=== PATIENT | male | born 1955 | race Caucasian/White ===

== ENCOUNTER 2022-01-27 00:52 | Emergency (ER) | payer OTHER, SELFPAY ==
[2022-01-27 01:00] VITALS: PULSE 80; RESP 18; BMI 13.2
[2022-01-27] MEDS: 0.9 % SODIUM CHLORIDE 1000 ml 1,000 ML IV ×2 (01:45→03:00)
[2022-01-27] MEDS: ONDANSETRON 2 MG/ML inj 4 MG IVP (01:45)
[2022-01-27 02:04] LABS: Basophils Absolute Auto 0.03 K/uL (0.00-0.30); Basophils Percent Auto 0.3 % (0.0-3.0); Eosinophils Absolute Auto 0.14 K/uL (0.00-0.50); Eosinophils Percent Auto 1.3 % (0.0-7.0); Hematocrit 43.2 % (37.0-53.0); Hemoglobin* 14.3 gm/dL (13.5-17.5); Immature Granulocytes Abs Auto 0.01 K/uL (0.00-0.30); Lymphocytes Percent Auto 9.6 % (20-44); Mean Corpuscular HGB Conc 33 gm/dL (32-36); Mean Corpuscular Hemoglobin 30 pg (26-34); Mean Corpuscular Volume 90 fL (80-100); Monocytes Percent Auto 8.2 % (0.0-11.0); Neutrophils Percent Auto 80.5 % (42.0-72.0); Platelet Count* 214 K/uL (140-440); RDW Coefficient of Variation % 15.1 % (11.5-15.5); Red Blood Count 4.79 m/uL (4.30-5.90); White Blood Count* 10.59 K/uL (4.50-11.00)
[2022-01-27 02:08] LABS: Slide Review Reflex No
[2022-01-27 02:17] LABS: Albumin* 4.3 g/dL (3.3-5.0); Chloride* 104 mmol/L (96-114); Potassium* 3.8 mmol/L (3.6-5.1); Sodium* 138 mmol/L (135-149)
[2022-01-27 02:19] LABS: Creatinine* 1.3 mg/dL (0.5-1.5); Estimated Glomerular Filt Rate 61 ml/min
[2022-01-27 02:20] LABS: Alanine Aminotransferase* 29 U/L (4-50); Alkaline Phosphatase* 91 U/L (40-150); Aspartate Amino Transferase* 30 U/L (12-35); Bilirubin Direct* 0.2 mg/dL (0.0-0.5); Bilirubin Total* 0.4 mg/dL (0.1-1.5); Blood Urea Nitrogen* 26 mg/dL (7-30); Calcium* 8.8 mg/dL (8.4-10.6); Carbon Dioxide* 24 mmol/L (20-32); Glucose* 150 mg/dL (60-115); Total Protein* 7.8 g/dL (6.0-8.3)
[2022-01-27 02:23] LABS: C Reactive Protein* 2.5 mg/dL (0.5-1.0)
[2022-01-27 02:40] LABS: Lactate* 2.6 mmol/L (0.5-1.9)
--- NOTE | 2022-01-27 02:47 | ED_ITS ---
HPI - General Adult General Date Seen: 01/27/22 Chief complaint: Diarrhea Stated complaint: Diarrhea Time Seen by Provider: 01/27/22 01:21 Source: patient History of Present Illness HPI narrative: Patient is a 66-year-old male who presents with vomiting and diarrhea which started about 6 hours ago. He says that he just can not keep himself off the toilet. He has noted nonbloody, watery diarrhea multiple times, as well as multiple episodes of vomiting. He says he can not keep anything down. He has diffuse, crampy, mild abdominal pain, he says his abdomen feels ?tight?. He does not have any severe or localized abdominal pain. He has not had any fever. He has not had any recent travel or antibiotics. He has not been around anybody who has been sick. He had an episode of feeling lightheaded, like he might pass out although he did not pass out. He decided he better come in and get checked out. He has not had any chest pain or difficulty breathing, no urinary symptoms, no rashes. He has not taken any medications at home. Related Data Allergies Allergy/AdvReac Type Severity Reaction Status Date / Time No Known Drug Allergies Allergy Verified 01/27/22 01:07 Review of Systems Status of ROS: Reports: 10 or more systems reviewed and unremarkable except as noted in History and below [facility] Social History Smoking Status: Unknown if ever smoked Do you use any of these nicotine containing products: None Second hand tobacco smoke exposure: No How often do you have a drink containing alcohol: monthly or less AUDIT-C Alcohol total score: 1 Non-prescribed substance use: denies use Exam Narrative: Exam Narrative: Vital signs as noted above. In general, an alert, nontoxic male. Head: Normocephalic, atraumatic. Eyes: Pupils are equal reactive. Extraocular movements are full. Conjunctivae are normal. ENT: Mucous membranes are somewhat dry. Throat is normal. Neck: Supple without lymphadenopathy. Heart: Regular rate and rhythm. No murmur or rub. Lungs: Clear bilaterally. No increased work of breathing, crackles or wheezes. Abdomen: Soft and nontender. No organomegaly. Extremities: Well perfused. No edema. No calf tenderness. Pulses intact. Neurologic: Patient is alert and oriented to person and place. Speech is fluent. Face is symmetric. Moves all extremities equally. Affect: Normal. Skin: Warm and dry. Well perfused. Const: Vital Signs, click to edit/add: Vital Signs - 24 hr 01/27/22 01:00 01/27/22 04:52 Pulse Rate [Pulse Oximeter] 80 80 Respiratory Rate 18 16 Blood Pressure [Ri ght Upper Arm] 142/82 H Pulse Oximetry 98 Oxygen Delivery Me thod Room Air Room Air Course Course Hospital Course: We will go ahead and established an IV, give some fluids and Zofran, check some labs. Overall, symptoms are most suggestive of gastroenteritis with rather abrupt onset of both vomiting and diarrhea, diffuse abdominal pain. Certainly a food-borne illness is possible, I think other etiologies such as bowel obstruction, appendicitis, diverticulitis, cholecystitis, pancreatitis, mesenteric ischemia, etcetera are less likely, but will assess labs and then determine whether further imaging or evaluation or needed. Overall, labs are reassuring. White blood cell count is 10.6. Hemoglobin is 14.3. He does have a left shift at 80.5%. Electrolytes are all within normal limits. BUN is 26, creatinine is 1.3. Lactate was mildly elevated at 2.6. Creatinine mildly elevated at 2.5 P UA was negative, no red cells or white cells, no ketones. He had a total of 2 L of fluid. He is feeling improved, tolerating oral liquids. Retrospectively, he feels he knows what happened. He says that he had gone to the store, felt like having some seafood so he bought oysters. He left them in the hot car for about an hour, and then put them in the freezer to call them back down. He thinks this probably led to his GI symptoms. At present, given his nonspecific and benign abdominal exam, relatively reassuring labs, and symptoms which are overall suggesting an enteritis, I think it makes sense to see how he does over the course of today and he is comfortable with that. Would suggest clear liquids, advance diet as able. Discussed that if he feels that he is getting worse rather than better, has severe or focal abdominal pain, fevers, bloody stools, other worsening, he should come back for further evaluation. Vital Signs Vital signs: Initial Vital Signs Temperature Source Temporal Artery Scan 01/27/22 01:00 Pulse Rate 80 01/27/22 01:00 Respiratory Rate 18 01/27/22 01:00 Blood Pressure Position Sitting 01/27/22 01:00 Oxygen Delivery Method 01/27/22 01:00 Vital Signs Pulse Rate 80 01/27/22 01:00 Respiratory Rate 18 01/27/22 01:00 Oxygen Delivery Method 01/27/22 01:00 Pulse Rate 80 01/27/22 04:52 Respiratory Rate 16 01/27/22 04:52 Blood Pressure 142/82 H 01/27/22 04:52 Pulse Oximetry 98 01/27/22 04:52 Oxygen Delivery Method 01/27/22 04:52 Medical Decision Making Lab Data Labs: Lab Results 01/27/22 01/27/22 01/27/22 Range/Units 01:45 01:45 01:45 WBC 10.59 (4.50-11.00) K/uL RBC 4.79 (4.30-5.90) m/uL Hgb 14.3 (13.5-17.5) gm/dL Hct 43.2 (37.0-53.0) % MCV 90 (80-100) fL MCH 30 (26-34) pg MCHC 33 (32-36) gm/dL RDW Coeff of Harry 15.1 (11.5-15.5) % Plt Count 214 (140-440) K/uL Neut % (Auto) 80.5 H (42.0-72.0) % Lymph % (Auto) 9.6 L (20-44) % Tyrrell % (Auto) 8.2 (0.0-11.0) % Eos % (Auto) 1.3 (0.0-7.0) % Baso % (Auto) 0.3 (0.0-3.0) % Neut # (Auto) 8.50 H (1.7-7.0) K/uL Lymph # (Auto) 1.00 (0.90-2.90) K/uL Tyrrell # (Auto) 0.90 (0.00-0.90) K/UL Eos # (Auto) 0.14 (0.00-0.50) K/uL Baso # (Auto) 0.03 (0.00-0.30) K/uL Abs Immat Gran (auto) 0.01 (0.00-0.30) K/uL Sodium 138 (135-149) mmol/L Potassium 3.8 (3.6-5.1) mmol/L Chloride 104 (96-114) mmol/L Carbon Dioxide 24 (20-32) mmol/L BUN 26 (7-30) mg/dL Creatinine 1.3 (0.5-1.5) mg/dL Estimated Creat Clear 35.80 Estimated GFR 61 ml/min Glucose 150 H (60-115) mg/dL Lactate 2.6 H (0.5-1.9) mmol/L Calcium 8.8 (8.4-10.6) mg/dL Total Bilirubin 0.4 (0.1-1.5) mg/dL Direct Bilirubin 0.2 (0.0-0.5) mg/dL AST 30 (12-35) U/L ALT 29 (4-50) U/L Alkaline Phosphatase 91 (40-150) U/L C-Reactive Protein 2.5 H (0.5-1.0) mg/dL Total Protein 7.8 (6.0-8.3) g/dL Albumin 4.3 (3.3-5.0) g/dL Urine Color (Yellow) Urine Appearance (Clear) Urine pH (5.0-8.5) Ur Specific Continental (1.000-1.030) Urine Protein (Negative) Urine Glucose (UA) (Negative) Urine Ketones (Negative) Urine Blood (Negative) Urine Nitrite (Negative) Urine Bilirubin (Negative) Urine Urobilinogen (0.2-1.0) Ur Leukocyte Esterase (Negative) Urine RBC (0-2) Urine WBC (0-5) Ur Squamous Epith Cells (None-Few) Urine Bacteria (None) 01/27/22 Range/Units 04:25 WBC (4.50-11.00) K/uL RBC (4.30-5.90) m/uL Hgb (13.5-17.5) gm/dL Hct (37.0-53.0) % MCV (80-100) fL MCH (26-34) pg MCHC (32-36) gm/dL RDW Coeff of Harry (11.5-15.5) % Plt Count (140-440) K/uL Neut % (Auto) (42.0-72.0) % Lymph % (Auto) (20-44) % Tyrrell % (Auto) (0.0-11.0) % Eos % (Auto) (0.0-7.0) % Baso % (Auto) (0.0-3.0) % Neut # (Auto) (1.7-7.0) K/uL Lymph # (Auto) (0.90-2.90) K/uL Tyrrell # (Auto) (0.00-0.90) K/UL Eos # (Auto) (0.00-0.50) K/uL Baso # (Auto) (0.00-0.30) K/uL Abs Immat Gran (auto) (0.00-0.30) K/uL Sodium (135-149) mmol/L Potassium (3.6-5.1) mmol/L Chloride (96-114) mmol/L Carbon Dioxide (20-32) mmol/L BUN (7-30) mg/dL Creatinine (0.5-1.5) mg/dL Estimated Creat Clear Estimated GFR ml/min Glucose (60-115) mg/dL Lactate (0.5-1.9) mmol/L Calcium (8.4-10.6) mg/dL Total Bilirubin (0.1-1.5) mg/dL Direct Bilirubin (0.0-0.5) mg/dL AST (12-35) U/L ALT (4-50) U/L Alkaline Phosphatase (40-150) U/L C-Reactive Protein (0.5-1.0) mg/dL Total Protein (6.0-8.3) g/dL Albumin (3.3-5.0) g/dL Urine Color Yellow (Yellow) Urine Appearance Clear (Clear) Urine pH 5.0 (5.0-8.5) Ur Specific Continental 1.020 (1.000-1.030) Urine Protein Negative (Negative) Urine Glucose (UA) Negative (Negative) Urine Ketones Negative (Negative) Urine Blood Negative (Negative) Urine Nitrite Negative (Negative) Urine Bilirubin Negative (Negative) Urine Urobilinogen 0.2 (0.2-1.0) Ur Leukocyte Esterase Negative (Negative) Urine RBC 0-2 (0-2) Urine WBC 0-2 (0-5) Ur Squamous Epith Cells None (None-Few) Urine Bacteria None (None) Discharge Plan Discharge Clinical Impression: Gastroenteritis Patient Disposition: Home, Self-Care Condition: Improved Instructions: Gastroenteritis (DC) Additional Instructions: Continue with hydration at home. I would stick with clear liquids or at least the 1st part of today, advance diet as able. Return for severe or focal abdominal pain, fevers, bloody stools, or other worsening. Zofran if needed for further nausea/vomiting. Stand Alone Forms: [facility] Info Instructions
--- NOTE | 2022-01-27 04:16 | ED.NURSE ---
pt given water, tolerated well.
[2022-01-27 04:39] LABS: Appearance Urine Clear (Clear); Bilirubin Urine Negative (Negative); Blood Urine Negative (Negative); Color Urine Yellow (Yellow); Glucose Urine Negative (Negative); Ketones Urine Negative (Negative); Leukocyte Esterase Urine Negative (Negative); Nitrite Urine Negative (Negative); Protein Urine Negative (Negative); Urobilinogen Urine 0.2 (0.2-1.0)
[2022-01-27 04:52] VITALS: BP 142/82; PULSE 80; RESP 16; O2SAT 98
[2022-01-27 04:54] LABS: RBC Urine 0-2 (0-2); WBC Urine 0-2 (0-5)
== END 2022-01-27 04:53 | disposition home or self-care (01) ==
PROVIDERS: Emergency Provider Emergency Medicine
DX: K52.9 Noninfective gastroenteritis and colitis, unspecified (principal)
CPT/HCPCS: 36415; 80048; 80076; 81001; 83605; 85025; 86140; 96374; 99283; 99284; J2405; J7030

== ENCOUNTER 2022-05-15 21:26 | Emergency (ER) | payer OTHER, SELFPAY ==
[2022-05-15 21:36] VITALS: BP 119/68; PULSE 102; RESP 20; TEMP 36.6; O2SAT 97; BMI 32.5
--- NOTE | 2022-05-15 22:03 | ED.NAVMDI ---
HPI - Nausea/Vomiting/Diarrhea General Chief complaint: Diarrhea Stated complaint: Vomiting, Diarrhea Time Seen by Provider: 05/15/22 21:37 History of Present Illness HPI Narrative: This 66-year-old male comes in with nausea and diarrhea that is been persistent over the last 3 hours. He states that he ate some salmon and oysters that he bought today and it was on the last day of its fresh in . Soon after eating this he began having diarrhea that is watery. He does not report any fevers or blood in the toilet. He states that this kind of thing has happened to him a couple times in the past. He is attributing it to the food that he just ate as prior to this he felt normal. Related Data Home Medications Medication Instructions Recorded Confirmed albuterol sulfate 90 mcg/actuation inhalation 05/15/22 aerosol inhaler fluticasone fur. 100 mcg-umeclid inhalation 05/15/22 62.5 mcg-vilant 25 mcg inhalat.powder (Trelegy Ellipta) lisinopril 20 tab 05/15/22 mg-hydrochlorothiazide 25 mg tablet loperamide 2 mg capsule mg 05/15/22 terazosin 5 mg capsule mg 05/15/22 warfarin 7.5 mg tablet mg 05/15/22 zolpidem 12.5 mg tablet,extended mg PO 05/15/22 release,multiphase Allergies Allergy/AdvReac Type Severity Reaction Status Date / Time amoxicillin [From Augmentin] Allergy Mild Nausea Verified 05/15/22 21:41 clavulanic acid Allergy Mild Nausea Verified 05/15/22 21:41 [From Augmentin] Review of Systems Status of ROS: Reports: 10 or more systems reviewed and unremarkable except as noted in History and below Narrative: Constitutional: No fevers, no weight gain or loss. Eyes: No discharge. No vision changes. HENT: No congestion, no sore throat, no ear pain. Cardiovascular: No chest pain, no palpitations. Respiratory: No shortness of breath, no wheezes, no cough. Gastrointestinal: He reports nausea, abdominal pain, and diarrhea. Genitourinary: No dysuria, no hematuria. Musculoskeletal: Normal range of motion. Skin: No rashes, no pruritis. Neurological: No dizziness, weakness, sensory change, speech change. Endo/Heme/Allergies: No bruising or bleeding. No polydipsia. Pysch: no suicidality, no anxiety, no insomnia. All other systems reviewed and are negative. [facility] Social History Smoking Status: Never smoker Do you use any of these nicotine containing products: None Second hand tobacco smoke exposure: No How often do you have a drink containing alcohol: 4 or more times a week AUDIT-C Alcohol total score: 4 Non-prescribed substance use: denies use Exam Narrative: Exam Narrative: Constitutional: Well-developed, well-nourished, no acute distress. HEENT: Normocephalic, atraumatic. Neck: Normal range of motion. Nontender. Supple. Heart: Regular. No murmurs. Borderline tachycardia, rate 102 beats per minute. Intact distal pulses. Lungs: Clear to auscultation. No chest discomfort. No wheezes, rhonchi, or rales. Abdomen: Normal bowel sounds. Nontender. No rebound tenderness. Genitalia: Deferred. Back: No midline tenderness. Normal range of motion. Extremities: Normal range of motion. No injury. Skin: Intact. No rash. Warm. No erythema or pallor. Neurologic: No altered sensation. No weakness. Alert and oriented. Psychiatric: No suicidality. No anxiety or depression. No insomnia. Nursing notes and vitals signs are reviewed. Const: Vital Signs, click to edit/add: Vital Signs - 24 hr 05/15/22 21:36 Temperature 97.9 F Pulse Rate [Left P ulse Oximeter] 102 H Respiratory Rate 20 Blood Pressure [Ri ght Upper Arm] 119/68 Pulse Oximetry 97 Oxygen Delivery Me thod Room Air Course Vital Signs Vital signs: Initial Vital Signs Temperature 97.9 F 05/15/22 21:36 Temperature Source Temporal Artery Scan 05/15/22 21:36 Pulse Rate 102 H 05/15/22 21:36 Pulse Rhythm 05/15/22 21:36 Respiratory Rate 20 05/15/22 21:36 Blood Pressure 119/68 05/15/22 21:36 Blood Pressure Mean 85 05/15/22 21:36 Blood Pressure Position Supine 05/15/22 21:36 Pulse Oximetry 97 05/15/22 21:36 Oxygen Delivery Method 05/15/22 21:36 Vital Signs Temperature 97.9 F 05/15/22 21:36 Pulse Rate 102 H 05/15/22 21:36 Respiratory Rate 20 05/15/22 21:36 Blood Pressure 119/68 05/15/22 21:36 Pulse Oximetry 97 05/15/22 21:36 Oxygen Delivery Method 05/15/22 21:36 Temperature 97.9 F 05/15/22 21:36 Pulse Rate 102 H 05/15/22 21:36 Respiratory Rate 20 05/15/22 21:36 Blood Pressure 119/68 05/15/22 21:36 Pulse Oximetry 97 05/15/22 21:36 Oxygen Delivery Method 05/15/22 21:36 MDM - Nausea/Vomiting/Diarrhea MDM Narrative Medical decision making narrative: This patient comes in with frequent diarrhea after eating food 3 hours prior to arrival. An IV was established where he received a L of normal saline intravenously. He also received 4 mg of Zofran and 30 mg of Toradol. This brought significant relief to his symptoms. He is okay to be discharged home to resume diet as tolerated. I encouraged frequent oral rehydration. Discharge Plan Discharge Clinical Impression: Food poisoning Patient Disposition: Home, Self-Care Condition: Improved Additional Instructions: Increase diet as tolerated. Frequent oral rehydration is encouraged. Follow up with MD or return if worsening. Prescriptions: No Action terazosin 5 mg capsule Label Comments: TAKE 1 CAPSULE (5 MG) BY MOUTH AT BEDTIME loperamide 2 mg capsule Label Comments: TAKE 3-4 CAPSULES (6-8 MG) BY MOUTH 3 TIMES DAILY NEEDED FOR DIARRHEA warfarin 7.5 mg tablet Label Comments: TAKE 1 TAB 6 TIMES A WEEK DIRECTED lisinopril-hydrochlorothiazide 20-25 mg tablet Label Comments: TAKE 1 TABLET BY MOUTH EVERY DAY albuterol sulfate 90 mcg/actuation HFA aerosol inhaler INHALATION Label Comments: INHALE 2 PUFFS BY MOUTH EVERY 6 HOURS NEEDED FOR WHEEZE OR FOR SHORTNESS OF BREATH zolpidem 12.5 mg tablet,ext release multiphase PO Label Comments: TAKE 1 TABLET BY MOUTH AT BEDTIME NEEDED FOR SLEEP Trelegy Ellipta 100-62.5-25 mcg blister with device INHALATION Label Comments: INHALE 1 PUFF BY MOUTH EVERY DAY Follow Up/Referrals: Provider,Not a Local [Primary Care Provider] - Stand Alone Forms: [facility] Info Instructions
[2022-05-15] MEDS: 0.9 % SODIUM CHLORIDE 1000 ml 1,000 ML IV (22:12)
[2022-05-15] MEDS: ONDANSETRON 2 MG/ML inj 4 MG IVP (22:12)
[2022-05-15] MEDS: KETOROLAC 30 MG/ML inj IVP (22:12)
--- OUTSIDE RECORDS SUMMARY | 2022-05-15 22:14 | XMS_ITS | Encounter Summary ---
:1955 Author Organization [facility] Address [address], [place] [address] Care Team Providers Name Role Phone Unavailable Primary Care Provider Unavailable Reason for Visit Procedure/Equipment (Routine) - Incomplete Specialty Diagnoses / Procedures Referred By Contact Refer red To Contact Diagnoses Acute bilateral low back pain with left-sided sciatica (HRC) Terry Tovar, [place] [address] [place] [address] Referral ID Status Reason Start Date Expiration Date Visits V isits Requested Authorized [id number] Incomplete 06/29/2020 09/28/2021 1 1 Encounter Details Date Type Department Care Team Description 06/29/2020 [facility] Terry Martin Acute bilat eral low Procedure [facility] [address] J, DO back pain with Radiology [place] [address] left-sided sciatica [address] [place] [place] [address] [address] [place], [place] [phone] (Work) [phone] Social History Tobacco Use Types Packs/Day Years Used Date Smoking Tobacco: Never Assessed Sex Assigned at Date Recorded Not on file documented as of this encounter Plan of Treatment Not on filedocumented as of this encounter Procedures Procedure Name Priority Date/Time Associated Diagnosis Comme nts MR LUMBAR SPINE WO STAT 06/29/2020 1:24 PM Acute bilateral low Results for this IV CONT [employer] RN back pain with procedure are in left-sided sciatica the resu lts section. documented in this encounter Results MR Lumbar Spine WO IV Cont (06/29/2020 1:24 PM [employer] RN) Anatomical Region Laterality Modality Spine, L-Spine, Skeletal Magnetic Resona nce Specimen (Source) Anatomical Collection Method Collection Time Re ceived Time Location / / Volume Laterality 06/29/2020 12:49 PM [employer] RN Impressions 06/29/2020 1:35 PM [employer] RN INDICATION: Low back pain with radicular symptoms TECHNIQUE: ??Routine non-contrast MRI of the lumbar spine. COMPARISON: Lumbar spine radiographs 12/2020 FINDINGS: Five lumbar-type vertebral bod ies. The conus medullaris terminates at the level of the L1-L2. ??Normal cord signal. ??No acute compression fracture or suspicious osseous lesion. Degenerative d isc changes most pronounced at L4-L5 and L5-S1 where there are moderate to severe degenerative disc changes. ??Slight retrolisthesis at L2-L3. The visualized paraspinal structures are unremarkable. Level by level: T12-L1: No spinal canal or neural forami nal narrowing. L1-2: Small disc bulge with small right central disc protrusion. Slight right lateral recess narrowing. Spinal canal is patent. Neural foramina are patent. L2-3: Slight retrolisthesis. Mild disc b ulge. Mild facet arthropathy. Minimal spinal canal narrowing. Mild lateral recess narrowing. Slight neural foraminal narrowing. ?? L3-4: Mild disc bulge. Mild facet arthro stevo. Spinal canal is patent. Slight neural foraminal narrowing. L4-5: Mild posterior disc osteophyte com plex. Mild facet arthropathy. Spinal canal is patent. Moderate bilateral neural foraminal narrowing. L5-S1: Minimal posterior disc osteophyte complex. Mild facet arthropathy. Spinal canal is patent. Mild neural foraminal narrowing. ?? IMPRESSION: ?? 1. Degenerative findings most pronounced at L4-L5 where there is moderate bilateral neural foraminal narrowing with moderate to severe degenerative disc changes with patent spinal canal. 2. Other degenerative findings as above. Comment: Many lumbar spine MRI findings are so common that while we may have reported their presence, they must be interpreted with caution and in the context of the clinical situation. The frequency of these findings in adults WITHOUT low ba ck pain increases with age and are as follows: disk degeneration (37-96%), disk height loss (24-84%), disk bulge (30- 84%), disk protrusion (29-43%), annular fissure (19-29%), and facet degeneration (4-83%). Frequency percentages adapted from Curtis alexander W, Cruz PH, Daniel Vasquez, et al. AJNR AM J Neuroradiol 2015:36:811-16. Procedure Note Elvis Shea MD - 06/29/2020Forma tting of this note might be different from the original. IMPRESSION INDICATION: Low back pain with radicular symptoms TECHNIQUE: Routine non-contrast MRI of t he lumbar spine. COMPARISON: Lumbar spine radiographs 12/2020 FINDINGS: Five lumbar-type vertebral bod ies. The conus medullaris terminates at the level of the L1-L2. Normal cord signal. No acute compression fracture or suspicious osseous lesion. Degenerative disc changes most pronounced at L4-L5 and L5- S1 where there are moderate to severe degenerative disc changes. Slight retrolisthesis at L2-L3. The visualized paraspinal structures are unremarkable. Level by level: T12-L1: No spinal canal or neural forami nal narrowing. L1-2: Small disc bulge with small right central disc protrusion. Slight right lateral recess narrowing. Spinal canal is patent. Neural foramina are patent. L2-3: Slight retrolisthesis. Mild disc b ulge. Mild facet arthropathy. Minimal spinal canal narrowing. Mild lateral recess narrowing. Slight neural foraminal narrowing. L3-4: Mild disc bulge. Mild facet arthro stevo. Spinal canal is patent. Slight neural foraminal narrowing. L4-5: Mild posterior disc osteophyte com plex. Mild facet arthropathy. Spinal canal is patent. Moderate bilateral neural foraminal narrowing. L5-S1: Minimal posterior disc osteophyte complex. Mild facet arthropathy. Spinal canal is patent. Mild neural foraminal narrowing. IMPRESSION: 1. Degenerative findings most pronounced at L4-L5 where there is moderate bilateral neural foraminal narrowing with moderate to severe degenerative disc changes with patent spinal canal. 2. Other degenerative findings as above. Comment: Many lumbar spine MRI findings are so common that while we may have reported their presence, they must be interpreted with caution and in the context of the clinical situation. The frequency of these findings in adults WITHOUT low back pain increases w ith age and are as follows: disk degeneration (37-96%), disk height loss (24-84%), disk bulge (30-84%), disk protrusion (29-43%), annular fissure (19-29%), and facet degeneration (4-83%). Frequency percentages adapted from Curtis alexander W, Cruz PH, Daniel B, et al. AJNR AM J Neuroradiol 2015:36:[id number]. Terry Tovar DO RAD MRI documented in this encounter Visit Diagnoses Diagnosis Acute bilateral low back pain with left- sided sciatica (HRC) documented in this encounter
--- OUTSIDE RECORDS SUMMARY | 2022-05-15 22:14 | XMS_ITS | Encounter Summary ---
:1955 Author Organization [facility] Address [address] [place] [address] Care Team Providers Name Role Phone Unavailable Primary Care Provider Unavailable Reason for Referral Consult/Transfer Care (Routine) - Closed Specialty Diagnoses / Procedures Referred By Contact Refer red To Contact Diagnoses Acute bilateral low back pain with left-sided sciatica (HR[place]) [place] [address] [place] [address] Referral ID Status Reason Start Date Expiration Date Visits Requ ested Visits Authorized [id number] Closed 06/29/2020 09/28/2021 1 1 Scheduling Instructions Your provider has recommended an appoint ment with [facility]. You may call [phone] to schedule your appoi ntment. We suggest you call your health insurance company about your coverage an d benefits for this appointment. HAULER Procedure/Equipment (Routine) - Incomplete Specialty Diagnoses / Procedures Referred By Contact Refer red To Contact Diagnoses Acute bilateral low back pain with left-sided sciatica (HRC) Mulu Delgadillo DO [place] [id number] [place] [address] Referral ID Status Reason Start Date Expiration Date Visits V isits Requested Authorized [id number] Incomplete 06/29/2020 09/28/2021 1 1 HAULER Procedure/Equipment (Routine) - Incomplete Specialty Diagnoses / Procedures Referred By Contact Refer red To Contact Diagnoses Acute bilateral low back pain with left-sided sciatica (HRC) Mulu Delgadillo DO Procedures XR Lumbar Spine 2-3 Views [address] [place] [address] Referral ID Status Reason Start Date Expiration Date Visits V isits Requested Authorized [id number] Incomplete 06/29/2020 09/28/2021 1 1 HAULER Reason for Visit Reason Comments Back Pain WC doi: 06/29/2020 stefania: unsure . working on unever surfaces Encounter Details Date Type Department Care Team Description 06/29/2020 Office Visit [facility] Mulu Klein, Acute bilateral low Orthopedic Urgent DO back pain with Care [address] [facility] left-sided sciatica [address] [place] (Primary Dx) [place] [id number] [phone] Social History Tobacco Use Types Packs/Day Years Used Date Smoking Tobacco: Never Assessed Sex Assigned at Date Recorded Not on file documented as of this encounter Patient Instructions Patient InstructionsQuincy López, ATC - 06/29/2020 11:[address] Mulu Delgadillo, DO Sports & Orthopedic Medicine [facility] Medication Requests: Prescriptions are not filled on Weekends or on Weekdays after 3:00PM For all medication refills: Request a refill using MyChart or contact your Pharmacy NOTE: As always, if prescribed a new medication today, inquire with your pharmacist on any potential interaction with you current medications, or potential side effects. Discontinue the new medication and notify us if you have any concerning side effects. MRI Scheduling: To schedule an MRI at [facility] please call [phone] Paperwork Requests: Questions regarding FMLA or disability paperwork please call [phone] Phone lines are answered 8AM to 5PM Friday - Friday. General Scheduling: To schedule an appointment, please call [phone] [facility] Lang[facility] Nurse Line: [phone] Workers??? Compensation: Please contact our department for any Work Comp concerns at Email: [email or web address] 1. Acute bilateral low back pain with left-sided sciatica (HRC) Treatment Plan: Follow-Up: Follow up with Tayla Morales after injection. If you have any questions following your visit, please call us at [phone]. Medications: Your physician has sent a prescription for Prednisone and methocarbamol to your preferred pharmacy. Take this medication as instructed. Please be sure to review all information provided on your prescription regarding this drug and any potential side effects you may experience. Ask your pharmacist if any questions arise. Orthopedic Ur[facility] Care Contacts: Imaging Senior Lead Software Engineer: [place] [address]. Call [phone] to schedule. Medication Requests: Prescriptions are filled on Weekdays before 3:00PM For all medication refills: Request a refill using MyChart or contact your Pharmacy Paperwork Requests: FMLA or disability paperwork can be faxed to: [place] - [phone] Please allow 7-10 business days for completion of all paperwork. [facility] Worker's Compensation Services: E-mail Address: [email or web address] To request copies of your medical records, call: [phone] (option 4) HAULER documented in this encounter Progress Notes Mulu Delgadillo DO - 06/29/2020 12:00 PM CST NAME: ANITA CHRISTINE MR#: [id number] CSN: [id number] AUTHENTICATING CLINICIAN: MULU DELGADILLO DO CONFIRM #: [id number] LOC: 5311 CLINIC PROGRESS NOTE DATE OF VISIT: 06/29/2020 : 1955 CHIEF COMPLAINT: Left-sided low back pain. Date of injurywas today. 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 He points to the left hip actually as the area of the pain. He took some ibuprofen. He also saw a chiropractor today and then decided to come in here. Patient has ahistory of a knee replacement on the right as well as being on warfarin from a DVT in the right lower extremity in the past. He also has a [place] filter in his IVC for pulmonary embolus prophylaxis. Patient also says he has a history of seeing a doctor for his arthritis, Dr. Shelton, who has put him on 10 mg prednisone daily for about the past 3 or 4 weeks. He is not sure if he has a diagnosis of rheumatoid arthritis, however. The pain level is about a 10/10 with certain movements. He can move around okay but as he side-bendsto the left he has sharp pain there where he does yelp out in pain. He has had issues of sore back in the past but nothing like this. REVIEW OF SYSTEMS: Comprehensive ROS is completed, negative except as otherwise described. VITAL SIGNS: Patient's weight is 235 pounds. Temp 97.4 degrees Fahrenheit. Height is about 5 feet, 11 inches. PHYSICAL EXAM: GENERAL: This is an overall healthy-appearing, nondistressed middle-aged man. PSYCH: Normal affect. CARDIOVASCULAR: Pulses regular and equal, both lower extremities. NEURO: Sensation preserved in both legs equal bilaterally. RHEUM: No deformities suggesting autoimmune disease. RESPIRATORY: Patient is breathing normally. SKIN: No ecchymosis or lesions noted. MSK: Normal appearance. The patient has no tenderness to palpation in the paraspinal muscles of the lumbar spine. He does have tenderness to palpation of the left upper hip gluteal region. He has pain with side bending that causes him to yelp out. Gait is mildly antalgic. IMAGING: Lumbar x-rays taken today, reviewed by me personally do show decreased disk space at L4-L5 and L5-S1as well as pretty significant facet arthropathy in the lower lumbar region. MRI of lumbar spine taken today as interpreted by Dr. Elvis Shea: Degenerative findings, most pronounced at L4-L5 where there is moderate bilateral neural foraminal narrowing with moderate to severe degenerative disk changes with patent spinal canal. ASSESSMENT: Left-sided lumbar radiculopathy. PLAN: Patient is ordered an BERT injection on the left at L4-L5 to be done with physiatry, presumably on the . He will call to schedule that. In addition, he is going to follow up with Tayla Morales here at [facility] in [place]. He is prescribed prednisone 40 mg for 5 days, then will resume to 10 mg, methocarbamol as well as a short supply of [place] 5s. Work ability form is filled out. He feels he will be able to go back to work on Friday so it was filled out through Friday. Patient is in agreement with the plan. He will call if there are any questions or concerns. PJRhona:MEDKaty C: R:06/29/20 14:20 CONFIRM#:[id number] HAULER documented in this encounter Plan of Treatment Scheduled Referrals Name Type Priority Associated Diagnoses Order S chedule Orthopaedic Consult Referral Routine Acute bilateral low O rdered: 06/29/2020 Adult/Peds back pain with left-sided sciatica documented as of this encounter Results MR Lumbar Spine WO IV Cont (06/29/2020 1:24 PM WARP HAULER) Anatomical Region Laterality Modality Spine, L-Spine, Skeletal Magnetic Resona nce Specimen (Source) Anatomical Collection Method Collection Time Re ceived Time Location / / Volume Laterality 06/29/2020 12:49 PM WARP HAULER Impressions 06/29/2020 1:35 PM WARP HAULER INDICATION: Low back pain with radicular symptoms [...] facet degeneration (4-83%). Frequency percentages adapted from Brcristina alexander W, Cruz PH, Daniel Vasquez, et [...] et al. AJNR AM J Neuroradiol 2015:36:811-16. Mulu Delgadillo DO RAD MRI XR Lumbar Spine 2-3 Views (06/29/2020 11:40 AM WARP HAULER) Anatomical Region Laterality Modality Spine, L-Spine Digital Radiography Specimen (Source) Anatomical Collection Method Collection Time Re ceived Time Location / / Volume Laterality 06/29/2020 11:33 AM WARP HAULER Impressions 06/29/2020 12:54 PM WARP HAULER COMPARISON: ??None. FINDINGS: ??There is moderate lower lumb ar and mild upper lumbar degenerative disc change. There are moderate multilevel endplate osteophytes. Advanced lower lumbar facet arthrosis. No fracture identifi ed. Vertebral height and alignment are o therwise normal. The sacrum appears intact. Mild degenerative changes in the sacroiliac joints. There are sutures in the area of the rectum. There is an IVC filter. Procedure Note Nathaniel Ojeda MD - 06/29/2020Forma tting of this note might be different from the original. IMPRESSION COMPARISON: None. FINDINGS: There is moderate lower lumbar and mild upper lumbar degenerative disc change. There are moderate multilevel endplate osteophytes. Advanced lower lumbar facet arthrosis. No fracture identified. Vertebral height and alignme nt are otherwise normal. The sacrum appears intact. Mild degenerative changes in the sacroiliac joints. There are sutures in the area of the rectum. There is an IVC filter. Mulu Delgadillo DO RAD GD documented in this encounter Visit Diagnoses Diagnosis Acute bilateral low back pain with left- sided sciatica (HRC) - Primary Acute bilateral back pain, unspecified b ack location Acute bilateral low back pain with left- sided sciatica (HRC) documented in this encounter
--- OUTSIDE RECORDS SUMMARY | 2022-05-15 22:14 | XMS_ITS | Encounter Summary ---
:1955 [facility] Address [address], [place] [address] Care Team Providers Name Role Phone Unavailable Primary Care Provider Unavailable Reason for Visit Procedure/Equipment (Routine) - Incomplete Specialty Diagnoses / Procedures Referred By Contact Refer red To Contact Diagnoses Acute bilateral low back pain with left-sided sciatica (HRC) Terry Tovar DO Procedures XR Lumbar Spine 2-3 Views [address] [place] [address] Referral ID Status Reason Start Date Expiration Date Visits V isits Requested Authorized [id number] Incomplete 06/29/2020 09/28/2021 1 1 Encounter Details Date Type Department Care Team Description 06/29/2020 [facility] Terry Martin Acute bilat eral back Procedure [place] [address] J, DO pain, unspecified Radiology [address] back location [address] [place] [place] [address] [address] [place], [place] [phone] (Work) [phone] Social History Tobacco Use Types Packs/Day Years Used Date Smoking Tobacco: Never Assessed Sex Assigned at Date Recorded Not on file documented as of this encounter Plan of Treatment Not on filedocumented as of this encounter Procedures Procedure Name Priority Date/Time Associated Diagnosis Comme nts XR LUMBAR SPINE 2-3 Routine 06/29/2020 11:40 AM Acute bilatera l back Results for this VIEWS AUXILIARY EQUIPMENT OPERATOR pain, unspecified procedure are in back location the results section. documented in this encounter Results XR Lumbar Spine 2-3 Views (06/29/2020 11:40 AM AUXILIARY EQUIPMENT OPERATOR) Anatomical Region Laterality Modality Spine, L-Spine Digital Radiography Specimen (Source) Anatomical Collection Method Collection Time Re ceived Time Location / / Volume Laterality 06/29/2020 11:33 AM AUXILIARY EQUIPMENT OPERATOR Impressions 06/29/2020 12:54 PM AUXILIARY EQUIPMENT OPERATOR COMPARISON: ??None. FINDINGS: ??There is moderate lower [...] the rectum. There is an IVC filter. Terry DELANEY GD documented in this encounter Visit Diagnoses Diagnosis Acute bilateral back pain, unspecified b ack location documented in this encounter
--- OUTSIDE RECORDS SUMMARY | 2022-05-15 22:14 | XMS_ITS | Clinical Summary ---
:1955 Author [facility] Address [address] [place] [address] Care Team Providers Name Role Phone Unavailable Primary Care Provider Unavailable Source Comments You are receiving this document as you are listed as the primary care provider,follow-up provider, or the patient has been referred to you for consultation.This is in compliance with the Medicare and Medicaid EHR Incentive Program,which states Providers who transition their patient to another setting of careor provider of care or refers their patient to another provider of care shouldprovide summarycare record for each transition of care or referral. [facility] Allergies No known active allergies Medications Medication Sig Dispensed Refills Start Date End Date Status ALBUterol sulfate HFA 0 05/26/2020 Active 108 (90 Base) MCG/ACT inhaler TREL ELLIPTA 100-62.5-25 Inhale 1 Puff 0 06/22/2020 Active MCG/INH AEPB daily. hydroCHLOROthiazide Take 12.5 mg by 0 06/12/2020 Active (ORETIC) 12.5 MG tablet mouth daily. FLUCELVAX [facility] 0 04/18/2020 Active SUSP ADMINISTERED loperamide (IMODIUM) 2 0 06/13/2020 Active MG capsule predniSONE (DELTASONE) 5 0 06/28/2020 Active MG tablet terazosin (HYTRIN) 2 MG TAKE 1 CAPSULE BY 0 06/09/20 20 Active capsule MOUTH EVERYDAY AT BEDTIME warfarin (COUMADIN) 5 MG TAKE 5 MG (1 0 04/24/2020 Active tablet TABLET) ON FRIDAY AND 7.5 MG (1 & 1/2 TABLETS) ALL OTHER DAYS OR DIRECTED. warfarin (COUMADIN) 7.5 TAKE 5MG TABLET 0 04/21/2020 Active MG tablet ON EVERY FRI AND 7.5MG TABLET ON ALL OTHER DAYS OF THE WEEK. zolpidem tartrate Take 12.5 mg by 0 04/13/2020 Active (AMBIEN CR) 12.5 MG mouth at bedtime controlled release as needed. for tablet sleep sulfaSALAzine 0 06/28/2020 Activ e (AZULFIDINE) 500 MG tablet predniSONE (DELTASONE) Take 2 Tablets by 10 Tablet 0 1 Active 20 MG tabletIndications: mouth daily. Acute bilateral low back pain with left-sided sciatica (HRC) HYDROcodone-acetaminophe Take 1-2 Tablets 10 Tablet 0 06/29/19 21 Active n (NORCO) 5-325 MG by mouth every 6 tabletIndications: Acute hours as needed. bilateral low back pain with left-sided sciatica (HRC) Hospital, Clinic, or Ordered Dose Route Frequency Start Date End D ate Status Other Facility Administered Medication diazePAM (VALIUM) tablet 5 mg OR PRE-PROCEDURE 06/29/2020 Active 5 mgIndications: Acute bilateral low back pain with left-sided sciatica (HRC) Social History Tobacco Use Types Packs/Day Years Used Date Smoking Tobacco: Never Assessed Sex Assigned at Date Recorded Not on file Plan of Treatment Health Maintenance Due Date Last Done Comments Colon Cancer Screening Plan 1955 Due Hep C Screening (Preventive 1955 Services) PSA Screening Discussion 1955 COVID-19 Vaccine (#1) 06/02/1958 HIV Screening (Preventive 1973 Services) Adult Preventive Visit 12/02/1975 Cholesterol 1992 Zoster/Shingles (1 of 2) 12/02/2007 Influenza (#1) 2022 04/18/2020, 04/09/2019, 03/23/2018, Additional history exists DTaP/Tdap/Td (2 - Tdap) 07/07/2023 07/07/2013 Pneumococcal Aged Out 05/26/2020 No longer eligib le based on patient 's age to complete this topic HepA Aged Out No longer eligib le based on patient 's age to complete this topic HepB Aged Out No longer eligib le based on patient 's age to complete this topic Hib Aged Out No longer eligib le based on patient 's age to complete this topic IPV (Polio) Aged Out No longer eligib le based on patient 's age to complete this topic MCV4 Aged Out No longer eligib le based on patient 's age to complete this topic Insurance Payer Benefit Subscriber Effective Phone Address Type Plan / ID Dates Group [employer] [id number] 06/29/2020-Pr [phone] ATTN : [employer] [place] esent [phone] [place] [address] [facility] HP SELF [id number] 06/23/2015-Pr Com mercial INSURED esent EmmettVirgil fonseca Workers Comp Self 1955 [address] (Home) [place] [id number]
--- OUTSIDE RECORDS SUMMARY | 2022-05-15 22:14 | XMS_ITS | Encounter Summary ---
:1955 Author Organization [facility] Address [address] [address] Care Team Providers Name Role Phone Unavailable Primary Care Provider Unavailable Reason for Visit Reason Comments Injection Encounter Details Date Type Department Care Team Description 07/03/2020 Telephone [facility], Injection Center - Physical Medicine & MD Rehabilitation [address] [facility] [address] [facility] [place] [address] [place], [place] [address] [phone] Social History Tobacco Use Types Packs/Day Years Used Date Smoking Tobacco: Never Assessed Sex Assigned at Date Recorded Not on file documented as of this encounter Nursing Notes Itzel Fung RN - 07/04/2020 12:08 PM CST Closing encounter, pt cancelled his appt for 07/07 Itzel Howe RN - 07/03/2020 3:56 PM CST Spoke with pt over the phone. He stated that Dr. Louise's office did call him and gave him the ok to begin holding the warfarin for Friday's appt. Pt then went on to explain that he is trying to get this done sooner at [facility]. Pt will call back if he decides to cancel. Itzel Howe RN - 07/03/2020 8:44 AM CST Pt is scheduled for a lumbar BERT on 07/07/20. Pt takes Warfarin which is managed by Dr. Froylan Louise at [facility] in [place]. Explained to pt that I will reach out to Dr. Louise's office to ensure that he can begin holding the warfarin. Pt takes this in the evenings. Called and spoke with [facility] explained that we typically recommend a hold time of 5 days and their INR the day of the injection needs srinivasa 1.5 or lower. They will call the clinic back today. Dr. Ceron- Pt has also been taking prednisone 20 mg daily. He was supposed to be taking 40 mg but decreased this down. When should he stop taking the prednisone? E CRITIC documented in this encounter Plan of Treatment Not on filedocumented as of this encounter Visit Diagnoses Not on filedocumented in this encounter
--- OUTSIDE RECORDS SUMMARY | 2022-05-15 22:14 | XMS_ITS | Encounter Summary ---
:1955 Author Organization [facility] Address [address], [place] [address] Care Team Providers Name Role Phone Unavailable Primary Care Provider Unavailable Reason for Visit Reason Comments FOLLOW-UP, RETURN TO WORK Encounter Details Date Type Department Care Team Description 07/03/2020 Telephone Terry Palmer, FOLLOW -UP, RETURN TO Orthopedic Urgent Ca re DO WORK [address] [place], [place] [id number] [phone] Social History Tobacco Use Types Packs/Day Years Used Date Smoking Tobacco: Never Assessed Sex Assigned at Date Recorded Not on file documented as of this encounter Nursing Notes Dora Shukla RN - 07/03/2020 2:41 PM CST Order discussed in separate encounter sent to number provided below. SORTER Malena Tong - 07/03/2020 2:18 PM CST Pt is requesting to also have a copy of it faxed to [phone]. plz also fax it to the previous fax number provided Wendy Carrizales - 07/03/2020 11:16 AM CST Has the patient recently had surgery or an injury? No How may we help you today? Patient would like an extension to 07/17/20 on his RTW faxed to his employer ; FAX # [phone] Describe your symptoms/concerns: Is not able to return to work until after his procedure When did the issue start: Have you been seen for this recently?: yes [[facility] Screen Measurer And Trimmer/Appt Center: If yes, please include date and provider.] Is it okay to leave detailed message on your voicemail? yes [[employer] Trimmer/Appt Center: If this call is after 3 p.m., communicate to patient: If we are not able to get back to you by the end of the day and your symptoms worsen please contact the Careline] SORTER documented in this encounter Plan of Treatment Not on filedocumented as of this encounter Visit Diagnoses Not on filedocumented in this encounter
--- OUTSIDE RECORDS SUMMARY | 2022-05-15 22:14 | XMS_ITS | Encounter Summary ---
:1955 Author Organization [facility] Address [address], [place] [address] Care Team Providers Name Role Phone Unavailable Primary Care Provider Unavailable Reason for Visit Reason Comments QUESTIONS, GENERAL Encounter Details Date Type Department Care Team Description 07/03/2020 Telephone TRIA GalataTerry Kimbrough QUESTI ONS, GENERAL Orthopaedics & Sports DO Medicine [address] [facility] [address] [place] [address] [place] [address] [phone] Social History Tobacco Use Types Packs/Day Years Used Date Smoking Tobacco: Never Assessed Sex Assigned at Date Recorded Not on file documented as of this encounter Nursing Notes Dora Shukla RN - 07/03/2020 2:40 PM CST Order successfully faxed to [facility] at the number provided below. CLERK Bharti Malik - 07/03/2020 2:10 PM CST Has the patient recently had surgery or an injury? No How may we help you today? Patient would like to schedule injections at [facility] as it is closer to his home. Please fax a signed order to [facility] at [phone], Attn: Mayra. Describe your symptoms/concerns: NA When did the issue start: NA Have you been seen for this recently?: NA [Shipping And Receiving Weigher/Appt Center: If yes, please include date and provider.] Is it okay to leave detailed message on your voicemail? Yes [Shipping And Receiving Weigher/Appt Center: If this call is after 3 p.m., communicate to patient: If we are not able to get back to you by the end of the day and your symptoms worsen please contact the Careline] CLERK documented in this encounter Plan of Treatment Not on filedocumented as of this encounter Visit Diagnoses Not on filedocumented in this encounter
--- OUTSIDE RECORDS SUMMARY | 2022-05-15 22:15 | XMS_ITS | Encounter Summary ---
:1955 Author Organization [place] Address [facility] [place] [address] Care Team Providers Name Role Phone Nahomy, Esthela Conrad RN Unavailable Unavailable So Dodd MD Unavailable So Dodd MD Primary Care Provider Reason for Visit Reason Onset Date Comments Patient Request 03/27/2022 Requesting to speak with CINDY Proctor Anticoagulation 03/27/2022 Warfarin Hold plan f or procedure 04/19/22 Encounter Details Date Type Department Care Team Description 03/27/2022 [facility] So Dodd MD Patient Request Clinic [address] (Requesting to speak with [address] [place] [address] CINDY Proctor); [place] [address] Anticoagulation (Warfarin [id number] Hold plan for procedure 04/19/22) Social History Tobacco Use Types Packs/Day Years Used Date Smoking Tobacco: Former Cigarettes 2 25 Quit : 08/04/2006 Smokeless Tobacco: Never Comments: 2004 Alcohol Use Standard Drinks/Week Comments Yes 0 (1 standard drink = 0.6 oz pure alcoho l) 4 BEERS A day Alcohol Habits Answer Date Recorded How often do you have a drink containing 4 or more times a w lumbee 05/25/2021 alcohol? How many drinks containing alcohol do you have 3 or 4 05/25/2021 on a typical day when you are drinking? How often do you have six or more drinks on one Weekly 05/25/2021 occasion? Social Isolation Answer Date Recorded In a typical week, how many times do you Not asked talk on the phone with family, friends, or neighbors? How often do you get together with friends More than three t imes a week 05/25/2021 or relatives? How often do you attend roman catholic or Patient refused 2020 taoist services? Do you belong to any clubs or Yes 05/25/2021 organizations such as roman catholic groups, unions, fraternal or athletic groups, or school groups? How often do you attend meetings of the Not asked clubs or organizations you belong to? Are you now , , , 05/25/2021 , never or living with a partner? Physical Activity Answer Date Recorded On average, how many days per week do you engage in moderate to 6 days 05/25/2021 strenuous exercise (like walking fast, running, jogging, dancing, swimming, biking, or other activities that cause a light or heavy sweat)? On average, how many minutes do you engage in exercise at th is 60 min 05/25/2021 level? Stress Answer Date Recorded Do you feel stress - tense, restless, nervous, or anxious, N ot at all 05/25/2021 or unable to sleep at night because your mind is troubled all the time - these days? Financial Resource Strain Answer Date Recorded How hard is it for you to pay for the very basics like Not h ladonna at all 05/25/2021 food, housing, medical care, and heating? Food Insecurity Answer Date Recorded Within the past 12 months, you worried that your food would Never true 05/25/2021 run out before you got money to buy more. Within the past 12 months, the food you bought just didn't N ever true 05/25/2021 last and you didn't have money to get more. Transportation Needs Answer Date Recorded In the past 12 months, has lack of transportation kept you f rom No 05/25/2021 medical appointments or from getting medications? In the past 12 months, has lack of transportation kept you f rom No 05/25/2021 meetings, work, or getting things needed for daily living? Housing Stability Answer Date Recorded In the last 12 months, was there a time when you were not ab le No 05/25/2021 to pay the mortgage or rent on time? In the last 12 months, how many places have you lived? 1 05/25/2021 In the last 12 months, was there a time when you did not hav e a No 05/25/[address] or slept in a correction (including now)? Sex Assigned at Date Recorded Not on file COVID-19 Exposure Response Date Recorded In the last 10 days, have you been in contact with No / Unsu re 04/08/2022 9:01 AM CDT someone who was confirmed or suspected to have Coronavirus/COVID-19? documented as of this encounter Miscellaneous Notes Telephone Encounter - Caitlin Sequeira RN - 04/09/2022 4:45 PM CDT Called patient. Left detailed vm to return call to discuss hold plan, confirm pharmacy for Lovenox prescription and schedule an INR lab before holding warfarin and for 5-7 days after restarting warfarin. Sent all info in MyC. Telephone Encounter - So Dodd MD - 04/08/2022 2:00 PM CDT Agree with the plan . Thanks for all your help . Telephone Encounter - Susanna Albright RPH - 04/08/2022 1:51 PM CDT Spoke with Claire from [facility] [place]. Confirmed that longer than 3-day hold is required. Okay with 4-day warfarin hold. Karie FinnD, BCPS Telephone Encounter - Susanna Albrigth RPH - 04/08/2022 12:39 PM CDT [facility]-PROCEDURAL ANTICOAGULATION MANAGEMENT ASSESSMENT Warfarin interruption plan for dilation of anal stenosis on 04/19/22. Indication for Anticoagulation: DVT (2006, 2007) and Lupus Anticoagulant ? ? Lupus anticoagulant positive 01/05/2018 & 06/05/2018 [facility]-Procedure Risk stratification for thromboembolism: high (2021 Chest guidelines) HIGH RISK: 2021 CHEST Perioperative Management guidelines suggests bridging patients at high risk for thromboembolism when interrupting warfarin for a elective surgery/procedure RECOMMENDATION ??? Pre-Procedure: o Hold warfarin for 4 days, until after procedure starting: April 15 for high bleed risk procedure o Enoxaparin (Lovenox) 40 mg subq Q 24 hrs (prophylaxis dose) - Start enoxaparin: Friday, April 17 in AM - Last dose of enoxaparin prior to procedure: April 18 in AM (~24 hours prior to procedure) ??? Post-Procedure: o Resume warfarin dose if okay with provider doing procedure on night of procedure, April 19 PM: take 12.5 mg x 2, then resume home dose o Resume enoxaparin (Lovenox) ~ 24 hrs post procedure when okay with provider doing procedure. Continue until INR >= 2.0 o Recheck INR 5-7 days after resuming warfarin ? Plan routed to referring provider for approval ? Susanna Albright [facility] SUBJECTIVE/OBJECTIVE Virgil Colvin Emmett, a 66 year old male Goal INR Range: 2.0-3.0 Patient bridged in past: Yes: Yes:prophylactic enoxaparin for last several bridge plans (June, September, November and December 2020 (did not bridge post procedure due to risk of bleeding and recently debrided wound) Wt Readings from Last 3 Encounters: 04/08/22 108.9 kg (240 lb) 02/21/22 119.3 kg (263 lb) 11/30/21 109.8 kg (242 lb) [place] body weight: 77.6 kg (171 lb 1.2 oz) Adjusted ideal body weight: 90.1 kg (198 lb 10.3 oz) Estimated body mass index is 32.55 kg/m?? as calculated from the following: Height as of 04/08/22: 1.829 m (6'). Weight as of 04/08/22: 108.9 kg (240 lb). Lab Results Component Value Date INR 2.6 (H) 02/27/2022 INR 2.6 (H) 02/21/2022 INR 2.3 (H) 01/10/2022 Lab Results Component Value Date HGB 14.0 04/08/2022 HGB 13.5 12/25/2020 HCT 42.6 04/08/2022 HCT 41.2 12/25/2020 PLT 182 04/08/2022 PLT 216 12/25/2020 Lab Results Component Value Date CR 1.01 11/30/2021 CR 0.95 05/25/2021 CR 0.89 12/25/2020 Telephone Encounter - Caitlin Sequeira RN - 03/27/2022 2:30 PM CDT Procedure scheduled for 04/19/22 at Colorectal. Pre-op 04/08/22. Colorectal advised patient they require 3-day warfarin hold. However, [facility] protocols usually require 5-day hold and patient has bridged in the past with Lovenox so will probably need that again. Next INR lab is scheduled for 04/12/22. Patient had inquired with assistant construction superintendentEsthela, if he should cancel his lab. This ACC RN will move the lab to 04/08 when he is in clinic to save him a 2nd trip to clinic that week, but he should plan on checking it since he is due that week. Routing to Anticoag Pharmacist for assessment and recommendations. Caitlin Mukherjee RN Anticoagulation Team Telephone Encounter - Esthela Corea RN - 03/27/2022 2:23 PM CDT Called to colorectal they do require pre op and 3 day coumadin hold Scheduled for pre op and notified INR team of need for hold. Esthela Corea RN Telephone Encounter - Iris Del Valle - 03/27/2022 1:06 PM CDT General Call Reason for Call: Discuss Surgery What are your questions or concerns: Wondering if he needs to be seen again Date of last appointment with provider: 02/21/2022 Could we send this information to you in [facility] or would you prefer to receive a phone call?: Patient would prefer a phone call Okay to leave a detailed message?: Yes at Cell number on file: Telephone Information: Addendum Note - Susanna Albright RPH - 03/27/2022 1:06 PM CDT Addended by: SUSANNA ALBRIGHT on: 04/09/2022 09:18 AM Modules accepted: Orders Addendum Note - Caitlin Sequeira RN - 03/27/2022 1:06 PM CDT Addended by: CAITLIN SEQUEIRA on: 04/09/2022 05:53 PM Modules accepted: Orders Addendum Note - Caitlin Sequeira RN - 03/27/2022 1:06 PM CDT Addended by: CAITLIN SEQUEIRA on: 04/10/2022 10:00 AM Modules accepted: Orders documented in this encounter Plan of Treatment Upcoming Encounters Date Type Specialty Care Team Description 05/20/2022 Lab Lab documented as of this encounter Visit Diagnoses 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 with INR goal of 2.0-3.0 - Primary Chronic deep vein thrombosis (DVT) of lo wer extremity, unspecified laterality, unspecified vein (H) 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
--- OUTSIDE RECORDS SUMMARY | 2022-05-15 22:15 | XMS_ITS | Encounter Summary ---
:1955 Author Organization [place] Address [address] [place] [address] Care Team Providers Name Role Phone Nahomy, Esthela Conrad RN Unavailable Unavailable Froylan Louise MD Primary Care Provider Unavailable So Dodd MD Unavailable So Dodd MD Primary Care Provider Reason for Visit Reason Comments Medication Refill Encounter Details Date Type Department Care Team Description 02/15/2022 Refill [facility] Froylan Louise Ra, MD Medication Refill [address] [phone] Social History Tobacco Use Types Packs/Day Years Used Date Smoking Tobacco: Former Cigarettes 2 25 Quit : 08/04/2006 Smokeless Tobacco: Never Comments: 2004 Alcohol Use Standard Drinks/Week Comments Yes 0 (1 standard drink = 0.6 oz pure alcoho l) 4 BEERS A day Alcohol Habits Answer Date Recorded How often do you have a drink containing 4 or more times a w [place] 05/25/2021 alcohol? How many drinks containing alcohol [...] or relatives? How often do you attend lutheran or Patient refused 2020 roman catholic services? Do you belong to any clubs or Yes 05/25/2021 organizations such as lutheran groups, unions, fraternal or athletic groups, or [...] place to sleep or slept in a residential (including now)? Sex Assigned at Date Recorded Not on file documented as of this encounter Miscellaneous Notes Telephone Encounter - Esthela Corea RN - 02/15/2022 2:50 PM CDT Prescription approved per [facility] Refill Protocol. Esthela Corea RN documented in this encounter Plan of Treatment Upcoming Encounters Date Type Specialty Care Team Description 05/20/2022 Lab Lab documented as of this encounter Visit Diagnoses Diagnosis Mild persistent asthma, uncomplicated Unspecified asthma documented in this encounter Care Teams Abrasive Wheel Molder Relationship Specialty Start Date End Date Froylan Louise MD PCP - General Family Medicine 01/18/22 So Dodd MD PCP - General [facility] Medicine 02/21/22 [address] [place] [address] Esthela Corea RN Personal Advocate & Liaison Family Medicine 10/16 (PAL) So Dodd MD Assigned PCP 01/05/22 [address] [place] [address] documented as of this encounter
--- OUTSIDE RECORDS SUMMARY | 2022-05-15 22:15 | XMS_ITS | Encounter Summary ---
:1955 Author Organization [facility] Address [address] [place] [address] Care Team Providers Name Role Phone Esthela Corea RN Unavailable Unavailable So Dodd MD Unavailable So Dodd MD Primary Care Provider Encounter Details Date Type Department Care Team Description 04/26/2022 Travel Social History Tobacco Use Types Packs/Day Years Used Date Smoking Tobacco: Former Cigarettes 2 25 Quit : 08/04/2006 Smokeless Tobacco: Never Comments: 2004 Alcohol Use Standard Drinks/Week Comments Yes 0 (1 standard drink = 0.6 oz pure alcoho l) 4 BEERS A day Alcohol Habits Answer Date Recorded How often do you have a drink containing 4 or more times a w [place] 05/25/2021 alcohol? How many drinks containing alcohol [...] or relatives? How often do you attend adventism or Patient refused 2020 scientology services? Do you belong to any clubs or Yes 05/25/2021 organizations such as adventism groups, unions, fraternal or athletic groups, or [...] place to sleep or slept in a [facility] (including now)? Sex Assigned at Date Recorded Not on file COVID-19 Exposure Response Date Recorded In the last 10 days, have you been in contact with No / Unsu re 04/26/2022 12:17 PM CDT someone who was confirmed or suspected to have Coronavirus/COVID-19? documented as of this encounter Plan of Treatment Upcoming Encounters Date Type Specialty Care Team Description 05/20/2022 Lab Lab documented as of this encounter Visit Diagnoses Not on filedocumented in this encounter Care Teams Bmw Service Technician Relationship Specialty Start Date End Date So Dodd MD PCP - General Family Medicine 02/21/22 [address] [place], [place] [id number] Etshela Corea RN Personal Advocate & Liaison Family Medicine 10/16 (PAL) So Dodd MD Assigned PCP 01/05/22 [address] [place], [place] [id number] documented as of this encounter
--- OUTSIDE RECORDS SUMMARY | 2022-05-15 22:15 | XMS_ITS | Encounter Summary ---
:1955 Author Organization [facility] Address [address] [place] [address] Care Team Providers Name Role Phone Esthela Corea RN Unavailable Unavailable So Dodd MD Unavailable So Dodd MD Primary Care Provider Encounter Details Date Type Department Care Team Description 02/21/2022 Travel Social History Tobacco Use Types Packs/Day Years Used Date Smoking Tobacco: Former Cigarettes 2 25 Quit : 08/04/2006 Smokeless Tobacco: Never Comments: 2004 Alcohol Use Standard Drinks/Week Comments Yes 0 (1 standard drink = 0.6 oz pure alcoho l) 4 BEERS A day Alcohol Habits Answer Date Recorded How often do you have a drink containing 4 or more times a w [place] ira 05/25/2021 alcohol? How many drinks containing alcohol [...] or relatives? How often do you attend tenriism or Patient refused 2020 methodist services? Do you belong to any clubs or Yes 05/25/2021 organizations such as tenriism groups, unions, fraternal or athletic groups, or [...] place to sleep or slept in a penitentiary (including now)? Sex Assigned at Date Recorded Not on file COVID-19 Exposure Response Date Recorded In the last 10 days, have you been in contact with No / Unsu re 02/21/2022 3:27 PM CDT someone who was confirmed or suspected to have Coronavirus/COVID-19? documented as of this encounter Plan of Treatment Upcoming Encounters Date Type Specialty Care Team Description 05/20/2022 Lab Lab documented as of this encounter Visit Diagnoses Not on filedocumented in this encounter Care Teams Manager Software Relationship Specialty Start Date End Date So Dodd MD PCP - General Family Medicine 02/21/22 [address] [place], [place] [id number] Esthela Corea RN Personal Advocate & Liaison Family Medicine 10/16 (PAL) So Dodd MD Assigned PCP 01/05/22 [address] [place], [place] [id number] documented as of this encounter
--- OUTSIDE RECORDS SUMMARY | 2022-05-15 22:15 | XMS_ITS | Encounter Summary ---
:1955 Author Organization [place] Address [address] [place] [address] Care Team Providers Name Role Phone Nahomy, Esthela Conrad RN Unavailable Unavailable Froylan Louise MD Primary Care Provider Unavailable So Dodd MD Unavailable So Dodd MD Primary Care Provider Reason for Visit Reason Comments Medication Refill Encounter Details Date Type Department Care Team Description 02/18/2022 Refill [facility] Froylan Louise Ra, MD Medication Refill [address] [phone] Social History Tobacco Use [...] containing 4 or more times a w confederated salish 05/25/2021 alcohol? How many drinks containing alcohol [...] or relatives? How often do you attend moravian or Patient refused 2020 shinto services? Do you belong to any clubs or Yes 05/25/2021 organizations such as moravian groups, unions, fraternal or athletic groups, or [...] place to sleep or slept in a [facility] (including now)? Sex Assigned at Date Recorded Not on file COVID-19 Exposure Response Date Recorded In the last 10 days, have you been in contact with No / Unsu re 02/21/2022 3:27 PM CDT someone who was confirmed or suspected to have Coronavirus/COVID-19? documented as of this encounter Miscellaneous Notes Telephone Encounter - Esthela Corea RN - 02/19/2022 8:09 AM CDT No RF needed filled 02/15 Esthela Corea RN documented in this encounter Plan of Treatment Upcoming Encounters Date Type Specialty Care Team Description 05/20/2022 Lab Lab documented as of this encounter Visit Diagnoses Diagnosis Mild persistent asthma, uncomplicated Unspecified asthma documented in this encounter Care Teams Production Stage Manager Relationship Specialty Start Date End Date Froylan Louise MD PCP - General Family Medicine 01/18/22 So Dodd MD PCP - General Family Medicine 02/21/22 [address] [place], [place] [phone] Esthela Corea RN Personal Advocate & Liaison Family Medicine 10/16 (PAL) So Dodd MD Assigned PCP 01/05/22 [address] [place], [place] [id number] documented as of this encounter
--- OUTSIDE RECORDS SUMMARY | 2022-05-15 22:15 | XMS_ITS | Encounter Summary ---
:1955 Author Organization [place] Address [address] [place] [address] Care Team Providers Name Role Phone Nahomy, Esthela Conrad RN Unavailable Unavailable So Dodd MD Unavailable So Dodd MD Primary Care Provider Reason for Visit Reason Onset Date Comments Anticoagulation 05/10/2022 Eating 1 avocado pedro Encounter Details Date Type Department Care Team Description 05/10/2022 [facility] So Dodd MD Anticoagulation (Eating [address] [facility] [place] [address] avocado everyday) [id number] [place] [phone] Social History Tobacco Use Types Packs/Day Years [...] or relatives? How often do you attend oriental orthodox or Patient refused 2020 sikh services? Do you belong to any clubs or Yes 05/25/2021 organizations such as oriental orthodox groups, unions, fraternal or athletic groups, or [...] place to sleep or slept in a retirement (including now)? Sex Assigned at Date Recorded Not on file COVID-19 Exposure Response Date Recorded In the last 10 days, have you been in contact No / Unsure 05/10/2022 12:29 PM OIL PROSPECTING OBSERVER with someone who was confirmed or suspected to have Coronavirus/COVID-19? documented as of this encounter Miscellaneous Notes Telephone Encounter - Jazzy Ramos RN - 05/10/2022 2:00 PM CST Patient called back to inform me that he bought a bag of avocados and has been eating 1 everyday. Patient plans to continue with this regimen so we will have to determine at next INR visit if warfarin maintenance dose needs to be increased. INR had been trending low prior to today's INR. Jazzy Ramos RN Anticoagulation Clinic PROSPECTING OBSERVER Telephone Encounter - Marina Gaines - 05/10/2022 1:55 PM CST Reason for call: Other Patient called regarding (reason for call): call back Additional comments: Has more information for Jazzy in Anticoagulation Phone number to reach patient: Cell number on file: Telephone Information: Best Time: Anytime Can we leave a detailed message on this number? YES Travel screening: Not Applicable PROSPECTING OBSERVER documented in this encounter Plan of Treatment Upcoming Encounters Date Type Specialty Care Team Description 05/20/2022 Lab Lab documented as of this encounter Visit Diagnoses Not on filedocumented in this encounter Care Teams Engineering Patternmaker Relationship Specialty Start Date End Date So Dodd MD PCP - General Family Medicine 02/21/22 [address] [place] [address] Esthela Corea RN Personal Advocate & Liaison Family Medicine 10/16 (PAL) So Dodd MD Assigned PCP 01/05/22 [address] [place] [address] documented as of this encounter
--- OUTSIDE RECORDS SUMMARY | 2022-05-15 22:15 | XMS_ITS | Encounter Summary ---
:1955 Author Organization [place] Address [address] [place] [address] Care Team Providers Name Role Phone Esthela Corea RN Unavailable Unavailable So Dodd MD Unavailable So Dodd MD Primary Care Provider Encounter Details Date Type Department Care Team Description 05/10/2022 [facility] Pos tthrombotic syndrome; [facility] Chronic deep vein thrombosis (DVT) of lower extremity, unspecified laterality, unspecified vein (H); [address] [facility] Anticardiolipin antibody pos itive; [place] [address] intermediate current use of ant icoagulants with INR goal of 2.0-3.0 Social History Tobacco Use Types Packs/Day Years Used Date Smoking Tobacco: Former Cigarettes 2 25 Quit : 08/04/2006 Smokeless Tobacco: Never Comments: 2004 Alcohol Use Standard Drinks/Week Comments Yes 0 (1 standard drink = 0.6 oz pure alcoho l) 4 BEERS A day Alcohol Habits Answer Date Recorded How often do you have a drink containing 4 or more times a w [place] 05/25/2021 alcohol? How many drinks containing alcohol [...] or relatives? How often do you attend jewish or Patient refused 2020 yazidism services? Do you belong to any clubs or Yes 05/25/2021 organizations such as jewish groups, unions, fraternal or athletic groups, or [...] place to sleep or slept in a long term (including now)? Sex Assigned at Date Recorded Not on file COVID-19 Exposure Response Date Recorded In the last 10 days, have you been in contact No / Unsure 05/10/2022 12:29 PM PRIVATE EQUITY ASSOCIATE with someone who was confirmed or suspected to have Coronavirus/COVID-19? documented as of this encounter Plan of Treatment Upcoming Encounters Date Type Specialty Care Team Description 05/20/2022 Lab Lab documented as of this encounter Procedures Procedure Name Priority Date/Time Associated Diagnosis Comme nts INR POINT OF CARE Routine 05/10/2022 12:31 Postthromboti c syndrome Results for this PM PRIVATE EQUITY ASSOCIATE Chronic deep vein procedure are in thrombosis (DVT) of the resu lts lower extremity, section. unspecified laterality, unspecified vein (H) Anticardiolipin antibody positiv e intermediate current use of anticoagulants with INR goal of 2.0-3.0 documented in this encounter Results (ABNORMAL) INR point of care (05/10/2022 12:31 PM PRIVATE EQUITY ASSOCIATE) P athologist Signature INR 4.2 (H) 0.9 - 1.1 05/10/2022 [facility] 12:37 PM PRIVATE EQUITY ASSOCIATE Specimen Anatomical Collection Method Collection Time Receive d Time (Source) Location / / Volume Laterality Blood STRUCTURE OF Capillary / 05/10/2022 12:31 05/10/2022 FINGER OF RIGHT Unknown PM PRIVATE EQUITY ASSOCIATE 12:32 PM PRIVATE EQUITY ASSOCIATE HAND / Unknown Narrative [facility] - 05/10/2022 12:37 PM PRIVATE EQUITY ASSOCIATE This test is intended for monitoring Cou madin therapy. Results are not accurate in patients with prolonged INR due to facto r deficiency. 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 Chronic deep vein thrombosis (DVT) of lo wer extremity, unspecified laterality, unspecified vein (H) Anticardiolipin antibody positive Other and unspecified nonspecific immuno logical findings intermediate current use of anticoagulants with INR goal of 2.0-3.0 documented in this encounter Care Teams Metal Slitter Relationship Specialty Start Date End Date So Dodd MD PCP - General Family Medicine 02/21/22 [address] [place] [address] Esthela Corea RN Personal Advocate & Liaison Family Medicine 10/16 (PAL) So Dodd MD Assigned PCP 01/05/22 [address] [place] [address] documented as of this encounter
--- OUTSIDE RECORDS SUMMARY | 2022-05-15 22:15 | XMS_ITS | Encounter Summary ---
:1955 Author Organization [place] Address [facility] [address] Care Team Providers Name Role Phone Nahomy, Esthela Conrad RN Unavailable Unavailable So Dodd MD Unavailable So Dodd MD Primary Care Provider Reason for Visit Reason Onset Date Comments Call Back 04/24/2022 Patient called in re questing Warfarin instructions would like a call back Encounter Details Date Type Department Care Team Description 04/24/2022 [facility] So Dodd MD Call Back (Patient Clinic [place] [address] [facility] called in requesting [phone] [place], [place] [address] would like a call back) [phone] Social History Tobacco Use Types Packs/Day Years Used Date Smoking Tobacco: Former Cigarettes 2 25 Quit : 08/04/2006 Smokeless Tobacco: Never Comments: 2004 Alcohol Use Standard Drinks/Week Comments Yes 0 (1 standard drink = 0.6 oz pure alcoho l) 4 BEERS A day Alcohol Habits Answer Date Recorded How often do you have a drink containing 4 or more times a w [place] 05/25/2021 alcohol? How many drinks containing alcohol [...] or relatives? How often do you attend baptism or Patient refused 2020 islam services? Do you belong to any clubs or Yes 05/25/2021 organizations such as baptism groups, unions, fraternal or athletic groups, or [...] in contact with No / Unsu re 04/24/2022 2:12 PM CDT someone who was confirmed or suspected to have Coronavirus/COVID-19? documented as of this encounter Miscellaneous Notes Telephone Encounter - Diana Nielsen RN - 04/24/2022 4:35 PM CDT See acc note for call back. Telephone Encounter - Michelle Loya - 04/24/2022 4:10 PM CDT Reason for Call: Other call back Detailed comments: Patient called in requesting Warfarin instructions would like a call back Phone Number Patient can be reached at: Home number on file [phone] (home) Best Time: any Can we leave a detailed message on this number? YES Call taken on 04/24/2022 at 4:10 PM by Michelle Loya documented in this encounter Plan of Treatment Upcoming Encounters Date Type Specialty Care Team Description 05/20/2022 Lab Lab documented as of this encounter Visit Diagnoses Not on filedocumented in this encounter Care Teams Dean Of Boys Relationship Specialty Start Date End Date So Dodd MD PCP - General Family Medicine 02/21/22 [address] [place] [address] Esthela Corea RN Personal Advocate & Liaison Family Medicine 10/16 (PAL) So Dodd MD Assigned PCP 01/05/22 [address] [place] [address] documented as of this encounter
--- OUTSIDE RECORDS SUMMARY | 2022-05-15 22:15 | XMS_ITS | Encounter Summary ---
:1955 Author Organization [place] Address [address] [place] [address] Care Team Providers Name Role Phone Esthela Corea RN Unavailable Unavailable So Dodd MD Unavailable So Dodd MD Primary Care Provider Reason for Visit Reason Comments Medication Refill Encounter Details Date Type Department Care Team Description 03/01/2022 Refill [facility] Froylan Louise Ra, MD Medication Refill [address] [address] Social History Tobacco Use [...] containing 4 or more times a w [place] 05/25/2021 alcohol? How many drinks containing alcohol [...] or relatives? How often do you attend mosque or Patient refused 2020 latter day services? Do you belong to any clubs or Yes 05/25/2021 organizations such as mosque groups, unions, fraternal or athletic groups, or [...] place to sleep or slept in a [place] [facility] [place] (including now)? Sex Assigned at Date Recorded Not on file COVID-19 Exposure Response Date Recorded In the last 10 days, have you been in contact with No / Unsu re 02/27/2022 3:31 PM CDT someone who was confirmed or suspected to have Coronavirus/COVID-19? documented as of this encounter Plan of Treatment Upcoming Encounters Date Type Specialty Care Team Description 05/20/2022 Lab Lab documented as of this encounter Visit Diagnoses Diagnosis Insomnia, unspecified type documented in this encounter Care Teams Ceramic Designer Relationship Specialty Start Date End Date So Dodd MD PCP - General Family Medicine 02/21/22 [address] [place], [place] [id number] Esthela Corea, RN Personal Advocate & Liaison Family Medicine 10/16 (PAL) So Dodd MD Assigned PCP 01/05/22 [address] [facility] [place] [id number] documented as of this encounter
--- OUTSIDE RECORDS SUMMARY | 2022-05-15 22:15 | XMS_ITS | Encounter Summary ---
:1955 Author Organization [place] Address [address] [place] [address] Care Team Providers Name Role Phone Esthela Corea RN Unavailable Unavailable So Dodd MD Unavailable So Dodd MD Primary Care Provider Encounter Details Date Type Department Care Team Description 02/27/2022 [facility] Pos tthrombotic syndrome; [place] Chronic deep vein thrombosis (DVT) of lower extremity, unspecified laterality, unspecified vein (H); [address] [facility] Anticardiolipin antibody pos itive; [place] [address] [facility] current use of ant icoagulants with INR [...] containing 4 or more times a w [place] 05/25/2021 alcohol? How many drinks containing alcohol [...] or relatives? How often do you attend anglican or Patient refused 2020 islam services? Do you belong to any clubs or Yes 05/25/2021 organizations such as anglican groups, unions, fraternal or athletic groups, or [...] Comme nts INR POINT OF CARE Routine 02/27/2022 3:33 PM Postthrombo tic syndrome Results for this CDT Chronic deep vein procedure are in thrombosis (DVT) of the resu lts lower extremity, section. 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 Results are not accurate in patients with prolonged INR due to facto r deficiency. 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 Chronic deep vein thrombosis (DVT) of lo wer extremity, unspecified laterality, unspecified vein (H) Anticardiolipin antibody positive Other and unspecified nonspecific immuno logical findings 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
--- OUTSIDE RECORDS SUMMARY | 2022-05-15 22:15 | XMS_ITS | Encounter Summary ---
:1955 Author Organization [place] Address [address] [place] [address]. [place] [address] Care Team Providers Name Role Phone Esthela Corea RN Unavailable Unavailable So Dodd MD Unavailable So Dodd MD Primary Care Provider Reason for Visit Reason Onset Date Comments Call Back 04/12/2022 Encounter Details Date Type Department Care Team Description 04/12/2022 Telephone [facility] Jayde Dodd MD Call Back [facility] [phone] [place] [address] [place] [address] [place] [address] [phone] Social History Tobacco Use Types Packs/Day Years Used Date Smoking Tobacco: Former Cigarettes 2 25 Quit : 08/04/2006 Smokeless Tobacco: Never Comments: 2004 Alcohol Use Standard Drinks/Week Comments Yes 0 (1 standard drink = 0.6 oz pure alcoho l) 4 BEERS A day Alcohol Habits Answer Date Recorded How often do you have a drink containing 4 or more times a w [place] 05/25/2021 alcohol? How many drinks containing alcohol [...] you attend jewish or Patient refused 2020 anglican services? Do you belong to any clubs [...] place to sleep or slept in a fpc (including now)? Sex Assigned at Date Recorded Not on file COVID-19 Exposure Response Date Recorded In the last 10 days, have you been in contact with No / Unsu re 04/08/2022 9:01 AM CDT someone who was confirmed or suspected to have Coronavirus/COVID-19? documented as of this encounter Miscellaneous Notes Telephone Encounter - Shaniqua Humphrey RN - 04/12/2022 4:14 PM CDT Dietary Services Manager returned call to patient and reviewed upcoming procedure instructions. Encouraged patient to review [employer] message sent on 04/10/22 as a reference. Patient verified he has ten 40 mg Lovenox syringes that are not . Post- procedure INR check scheduled for 04/24/22. JORGE Mcmanus, RN Telephone Encounter - Gary Mcgee - 04/12/2022 4:02 PM CDT Reason for Call: Call Back Detailed comments: Please have Diana Nielsen RN call pt back to discuss INR instructions for procedure. Phone Number Patient can be reached at: [phone] Best Time: Anytime Can we leave a detailed message on this number? Yes, cam leave instructions over voicemail. Call taken on 04/12/2022 at 4:02 PM by Gary Mcgee documented in this encounter Plan of Treatment Upcoming Encounters Date Type Specialty Care Team Description 05/20/2022 Lab Lab documented as of this encounter Visit Diagnoses Not on filedocumented in this encounter Care Teams Fire Tender Relationship Specialty Start Date End Date So Dodd MD PCP - General Family Medicine 02/21/22 [address] [place] [address] Esthela Corea, CINDY Personal Advocate & Liaison Family Medicine 10/16 (PAL) So Dodd MD Assigned PCP 01/05/22 [address] [place], [place] [id number] documented as of this encounter
--- OUTSIDE RECORDS SUMMARY | 2022-05-15 22:15 | XMS_ITS | Encounter Summary ---
:1955 Author Organization [place] Address [address] [place] [address] Care Team Providers Name Role Phone Esthela Corea RN Unavailable Unavailable So Dodd MD Unavailable So Dodd MD Primary Care Provider Encounter Details Date Type Department Care Team Description 02/27/2022 Travel Social History Tobacco Use Types Packs/Day Years Used Date Smoking Tobacco: Former Cigarettes 2 25 Quit : 08/04/2006 Smokeless Tobacco: Never Comments: 2004 Alcohol Use Standard Drinks/Week Comments Yes 0 (1 standard drink = 0.6 oz pure alcoho l) 4 BEERS A day Alcohol Habits Answer Date Recorded How often do you have a drink containing 4 or more times a w [place] 05/25/2021 alcohol? How many drinks containing alcohol [...] you attend anglican or Patient refused 2020 shinto services? Do [...] place to sleep or slept in a halfway (including now)? Sex Assigned at Date Recorded [...] on filedocumented in this encounter Care Teams Rn Anesthetist Relationship Specialty Start Date End Date So Dodd MD PCP - General Family Medicine 02/21/22 [address] [place] [place], [place] [id number] Esthela Corea RN Personal Advocate & Liaison Family Medicine 10/16 (PAL) So Dodd MD Assigned PCP 01/05/22 [address] [place], [place] [id number] documented as of this encounter
--- OUTSIDE RECORDS SUMMARY | 2022-05-15 22:15 | XMS_ITS | Encounter Summary ---
:1955 Author Organization [place] Address [facility] [place] [address] Care Team Providers Name Role Phone Esthela Corea RN Unavailable Unavailable So Dodd MD Unavailable So Dodd MD Primary Care Provider Encounter Details Date Type Department Care Team Description 02/21/2022 Anticoagulation [facility], Chronic deep vein thrombosis (DVT) of lower extremity, unspecified laterality, unspecified vein (H) (Primary Dx); Therapy Visit Anticoagulation Diana Conrad RN terminal gauger current use of anticoagulant therapy; Clinic Postthrombotic syndrome; [address] [place] [address] Anticardiolipin antibody pos itive; [place], [place] terminal gauger cu rrent use of anticoagulants with INR goal of 2.0-3.0 [address] Social History Tobacco Use Types Packs/Day Years Used Date Smoking Tobacco: Former Cigarettes 2 25 Quit : 08/04/2006 Smokeless Tobacco: Never Comments: 2004 Alcohol Use Standard Drinks/Week Comments Yes 0 (1 standard drink = 0.6 oz pure alcoho l) 4 BEERS A day Alcohol Habits Answer Date Recorded How often do you have a drink containing 4 or more times a w [place] 05/25/2021 alcohol? How many drinks containing alcohol [...] or relatives? How often do you attend synagogue or Patient refused 2020 pentecostalism services? Do you belong to any clubs or Yes 05/25/2021 organizations such as synagogue groups, unions, fraternal or athletic groups, or [...] place to sleep or slept in a senior living (including now)? Sex Assigned at Date Recorded Not on file COVID-19 Exposure Response Date Recorded In the last 10 days, have you been in contact with No / Unsu re 02/21/2022 3:27 PM CDT someone who was confirmed or suspected to have Coronavirus/COVID-19? documented as of this encounter Progress Notes Diana Nielsen RN - 02/21/2022 4:17 PM CDT ANTICOAGULATION MANAGEMENT Virgil Christine 66 year old male is on warfarin with therapeutic INR result. (Goal INR 2.0-3.0) Recent labs: (last 7 days) 02/21/22 1531 INR 2.6* ASSESSMENT ??? Source(s): Chart Review and Patient/Caregiver Call ??? Warfarin doses taken: Warfarin taken as instructed ??? Diet: No new diet changes identified ??? New illness, injury, or hospitalization: Yes: tooth infection, plans to have it pulled and maybea bridge made. ??? Medication/supplement changes: amoxicillin 7 day course (dates: starting 02/22/22) subsequent INRsmay increased. Closer INR monitoring recommended. ??? Signs or symptoms of bleeding or clotting: No ??? Previous INR: Therapeutic last 2(+) visits ??? Additional findings: retiring in 30 days PLAN Recommended plan for temporary change(s) affecting INR Dosing Instructions: Continue your current warfarin dose with next INR in 5 days Summary As of 02/21/2022 Full warfarin instructions: 5 mg every Wed; 7.5 mg all other days Next INR check: 02/27/2022 Telephone call with Virgil who verbalizes understanding and agrees to plan Lab visit scheduled Education provided: Please call back if any changes to your diet, medications or how you've been taking warfarin, Importance of consistent vitamin K intake, Impact of vitamin K foods on INR, Vitamin K content of foods, Goal range and significance of current result, Importance of following up at instructed interval, Importance of taking warfarin as instructed, Potential interaction between warfarin and amoxicillin, Monitoring for bleeding signs and symptoms and Contact [phone] with any changes, questions or concerns. Plan made per [facility] anticoagulation protocol Diana Nielsen RN Anticoagulation Clinic 02/21/2022 Anticoagulation Episode Summary Current INR goal: 2.0-3.0 TTR: 87.1 % (1 y) Target end date: Indefinite Send INR reminders to: [facility] Indications Chronic deep vein thrombosis (DVT) of lower extremity unspecified laterality unspecified vein (H) [I82.509] Long-term (current) use of anticoagulants [Z79.01] [Z79.01] 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] group home current use of anticoagulants with INR goal of 2.0-3.0 [Z79.01] Comments: Anticoagulation Care Providers Provider Role Specialty Phone number Froylan Louise MD Referring Family Medicine [phone] documented in this encounter Plan of Treatment Upcoming Encounters Date Type Specialty Care Team Description 05/20/2022 Lab Lab documented as of this encounter Visit Diagnoses Diagnosis Chronic deep vein thrombosis (DVT) of lo wer extremity, unspecified laterality, unspecified vein (H) - Primary group home current use of anticoagulant t herapy 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
--- OUTSIDE RECORDS SUMMARY | 2022-05-15 22:15 | XMS_ITS | Encounter Summary ---
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 How many drinks containing alcohol [...] or relatives? How often do you attend nondenominational or Patient refused 2020 yazidism services? Do you belong to any clubs or Yes 05/25/2021 organizations such as nondenominational groups, unions, fraternal or athletic groups, or [...] Comme nts INR POINT OF CARE Routine 04/26/2022 12:20 Postthromboti c syndrome Results for this PM CDT Chronic deep vein procedure are in thrombosis (DVT) of the resu lts lower extremity, section. 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 Results are not accurate in patients with prolonged INR due to facto r deficiency. 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 Chronic deep vein thrombosis (DVT) of lo wer extremity, unspecified laterality, unspecified vein (H) Anticardiolipin antibody positive Other and unspecified nonspecific immuno logical findings 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
--- OUTSIDE RECORDS SUMMARY | 2022-05-15 22:15 | XMS_ITS | Encounter Summary ---
:1955 Author Organization [place] Address [facility]0 [facility] [place] [address] Care Team Providers Name Role Phone Nahomy, Esthela Conrad RN Unavailable Unavailable So Dodd MD Unavailable So Dodd MD Primary Care Provider Reason for Visit Reason Comments Establish Care Was a Dr. Louise pt. Encounter Details Date Type Department Care Team Description 02/21/2022 Office Visit [facility] So Dodd MD Acute deep vein thrombosis (DVT) of prox imal vein of both lower extremities (H); Clinic [address] correction current use of anticoagulants with INR goal of 2.0-3.0; [address] [place], [place] Morbid obesity (H); [place] [address] Benign prostatic hyperplasia with lower urinary tract symptoms, symptom details unspecified; [address] Benign essential hypertensio n; H/O ulcerative colitis; [phone] Moderate persis tent asthma, uncomplicated; (Fax) Dental infectio n; Anal fistula Social History Tobacco Use Types Packs/Day Years Used Date Smoking Tobacco: Former Cigarettes 2 25 Quit : 08/04/2006 Smokeless Tobacco: Never Comments: 2004 Alcohol Use Standard Drinks/Week Comments Yes 0 (1 standard drink = 0.6 oz pure alcoho l) 4 BEERS A day Alcohol Habits Answer Date Recorded How often do you have a drink containing 4 or more times a w [place] 05/25/2021 alcohol? How many drinks containing alcohol [...] or relatives? How often do you attend christian or Patient refused 2020 confucianist services? Do you belong to any clubs or Yes 05/25/2021 organizations such as christian groups, unions, fraternal or athletic groups, or [...] place to sleep or slept in a [facility] (including now)? Sex Assigned at Date Recorded Not on file COVID-19 Exposure Response Date Recorded In the last 10 days, have you been in contact with No / Unsu re 02/21/2022 3:27 PM CDT someone who was confirmed or suspected to have Coronavirus/COVID-19? 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 Left voicemail. Advised patient to call clinic back at [phone] X 2 Esthela Corea RN . So Dodd MD - 02/21/2022 4:00 PM CDT Assessment & Plan Acute deep vein thrombosis (DVT) of proximal vein of both lower extremities (H) With positive anticardiolipin antibodies will continue to closely monitor . - warfarin ANTICOAGULANT (COUMADIN) 7.5 MG tablet; Take 1 tab 6 times a week as directed correction current use of anticoagulants with INR goal of 2.0-3.0 - following with anticoagulation . Morbid obesity (H) - discussed to continue to work on weight loss . Benign prostatic hyperplasia with lower urinary tract symptoms, symptom details unspecified - terazosin (HYTRIN) 5 MG capsule; Take 1 capsule (5 mg) by mouth At Bedtime Essential hypertension - terazosin (HYTRIN) 5 MG capsule; Take 1 capsule (5 mg) by mouth At Bedtime - lisinopril-hydrochlorothiazide (ZESTORETIC) 20-25 MG tablet; Take 1 tablet by mouth daily H/O ulcerative colitis Following with GI . S/P Surgery - loperamide (IMODIUM) 2 MG capsule; TAKE 3-4 CAPSULES (6-8 MG) BY MOUTH 3 TIMES DAILY NEEDED FORDIARRHEA Moderate persistent asthma, uncomplicated - We discussed about PFT Prior history of smoking . Will try to add Singulair for symptom improvement . - Vnnabztpjvw-Upryzrasj-Mrjztnipcg (TRELEGY ELLIPTA) 100-62.5-25 MCG/INH oral inhaler; INHALE 1 PUFFBY MOUTH EVERY DAY - montelukast (SINGULAIR) 10 MG tablet; Take 1 tablet (10 mg) by mouth At Bedtime Dental infection -recommend dentist follow up visit - amoxicillin-clavulanate (AUGMENTIN) 875-125 MG tablet; Take 1 tablet by mouth 2 times daily for 7 days Anal fistula Patient continues to follow with colorectal surgery . BMI: Estimated body mass index is 35.67 kg/m?? as calculated from the following: Height as of 05/25/21: 1.829 m (6'). Weight as of this encounter: 119.3 kg (263 lb). Weight management plan: Discussed healthy diet and exercise guidelines Return in about 6 months (around 08/21/2022) for Follow up, patient will call. So [facility] is a 66 year old, presenting for the following health issues: Establish Care (Was a Dr. Louise pt.) HPI Infection in tooth for about a month. Might need to get some antibiotics. Review medications. 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 Doing well . Denies any health concern . Active fistula follows with colorectal surgery . Review of Systems HENT: Positive for dental problem. Respiratory: Negative for cough and shortness of breath. Gastrointestinal: Negative for abdominal distention and abdominal pain. Musculoskeletal: Positive for arthralgias and back pain. Skin: Negative for color change and pallor. Neurological: Negative for headaches. Psychiatric/Behavioral: Negative for agitation and behavioral problems. Objective BP 130/60 Pulse 84 Temp 98 ??F (36.7 ??C) (Oral) Resp 18 Wt 119.3 kg (263 lb) SpO2 96% BMI 35.67 kg/m?? Body mass index is 35.67 kg/m??. JLW Physical Exam HENT: Mouth/Throat: Mouth: Mucous membranes are moist. Comments: erythematous area with dental discharge . Cardiovascular: Rate and Rhythm: Normal rate. Pulses: Normal pulses. Pulmonary: Effort: Pulmonary effort is normal. Abdominal: General: Abdomen is flat. Palpations: Abdomen is soft. Musculoskeletal: General: Normal range of motion. Skin: General: Skin is warm. Neurological: General: No focal deficit present. Psychiatric: Mood and Affect: Mood normal. documented in this encounter Plan of Treatment Upcoming Encounters Date Type Specialty Care Team Description 05/20/2022 Lab Lab documented as of this encounter Visit Diagnoses Diagnosis Acute deep vein thrombosis (DVT) of prox imal vein of both lower extremities (H) intermediate designer current use of anticoagulants with INR goal of 2.0-3.0 Morbid obesity (H) Morbid obesity Benign prostatic hyperplasia with lower urinary tract symptoms, symptom details unspecified Benign essential hypertension Essential hypertension, benign H/O ulcerative colitis Personal history of other diseases of di gestive system Moderate persistent asthma, uncomplicate d Unspecified asthma Dental infection Acute apical periodontitis of pulpal benton gin Anal fistula documented in this encounter Care Teams Interventional Technologist Relationship Specialty Start Date End Date So Dodd MD PCP - General Family Medicine 02/21/22 [address] [place], [place] [id number] Esthela Corea RN Personal Advocate & Liaison Family Medicine 10/16 (PAL) So Dodd MD Assigned PCP 01/05/22 [address] [place] [address] documented as of this encounter
--- OUTSIDE RECORDS SUMMARY | 2022-05-15 22:15 | XMS_ITS | Encounter Summary ---
:1955 Author Organization [place] Address [facility]0 [facility] [place] [address] Care Team Providers Name Role Phone Esthela Corea RN Unavailable Unavailable So Dodd MD Unavailable So Dodd MD Primary Care Provider Encounter Details Date Type Department Care Team Description 04/26/2022 Anticoagulation [facility], Chronic deep vein thrombosis (DVT) of lower extremity, unspecified laterality, unspecified vein (H) (Primary Dx); Therapy Visit Anticoagulation Shaniqua Hein RN predatory animal exterminator current use of anticoagulant therapy; Clinic Postthrombotic syndrome; [address] [place] [address] Anticardiolipin antibody pos itive; [place], [place] predatory animal exterminator cu rrent use of anticoagulants with INR [...] containing 4 or more times a w [place] 05/25/2021 alcohol? How many drinks containing alcohol [...] or relatives? How often do you attend caodaism or Patient refused 2020 mormonism services? Do you belong to any clubs or Yes 05/25/2021 organizations such as caodaism groups, unions, fraternal or athletic groups, or [...] place to sleep or slept in a usp (including now)? Sex Assigned at Date Recorded Not on file COVID-19 Exposure Response Date Recorded In the last 10 days, have you been in contact with No / Unsu re 04/26/2022 12:17 PM CDT someone who was confirmed or suspected to have Coronavirus/COVID-19? documented as of this encounter Progress Notes Shaniqua Humphrey RN - 04/26/2022 12:56 PM CDT ANTICOAGULATION MANAGEMENT Virgil Christine 66 year old male is on warfarin with therapeutic INR result. (Goal INR 2.0-3.0) Recent labs: (last 7 days) 04/26/22 1220 INR 2.0* ASSESSMENT ??? Source(s): Chart Review and Patient/Caregiver Call ??? Warfarin doses taken: Warfarin taken as instructed ??? Diet: No new diet changes identified ??? New illness, injury, or hospitalization: No, however patient reported some disappointment in recent colorectal surgery - plans to f/u with GI provider ??? Medication/supplement changes: None noted ??? Signs or symptoms of bleeding or clotting: No ??? Previous INR: Subtherapeutic ? ? Additional findings: Bridging with Enoxaparin until INR >= 2.0 PLAN Recommended plan for no diet, medication or health factor changes affecting INR Dosing Instructions: Continue your current warfarin dose and stop Lovenox today with next INR in 2 weeks Summary As of 04/26/2022 Full warfarin instructions: 5 mg every Wed; 7.5 mg all other days; Starting 04/26/2022 Next INR check: 05/10/2022 Telephone call with Virgil who verbalizes understanding and agrees to plan Lab visit scheduled Education provided: ??? Please call back if any changes to your diet, medications or how you've been taking warfarin ??? Symptom monitoring: monitoring for bleeding signs and symptoms and monitoring for clotting signsand symptoms Plan made per [facility] anticoagulation protocol Shaniqua Humphrey RN Anticoagulation Clinic 04/26/2022 Anticoagulation Episode Summary Current INR goal: 2.0-3.0 TTR: 96.2 % (1 y) Target end date: Indefinite Send INR reminders to: [facility] Indications Chronic deep vein thrombosis (DVT) of lower extremity unspecified laterality unspecified vein (H) [I82.509] Long-term (current) use of anticoagulants [Z79.01] [Z79.01] 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] senior living current use of anticoagulants with INR goal of 2.0-3.0 [Z79.01] Comments: Anticoagulation Care Providers Provider Role Specialty Phone number Froylan Louise MD Referring Family Medicine [phone] documented in this encounter Plan of Treatment Upcoming Encounters Date Type Specialty Care Team Description 05/20/2022 Lab Lab documented as of this encounter Visit Diagnoses Diagnosis Chronic deep vein thrombosis (DVT) of lo wer extremity, unspecified laterality, unspecified vein (H) - Primary predatory animal exterminator current use of anticoagulant t herapy 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
--- OUTSIDE RECORDS SUMMARY | 2022-05-15 22:15 | XMS_ITS | Encounter Summary ---
:1955 Author Organization [place] Address [facility]0 [facility] [place] [address] Care Team Providers Name Role Phone Esthela Corea RN Unavailable Unavailable So Dodd MD Unavailable So Dodd MD Primary Care Provider Encounter Details Date Type Department Care Team Description 02/27/2022 Anticoagulation [facility], Chronic deep vein thrombosis (DVT) of lower extremity, unspecified laterality, unspecified vein (H) (Primary Dx); Therapy Visit Anticoagulation Diana Conrad RN exterminator current use of anticoagulant therapy; Clinic Postthrombotic syndrome; [address] [place] [address] Anticardiolipin antibody pos itive; [place], [place] exterminator cu rrent use of anticoagulants with [...] containing 4 or more times a w [place] 05/25/2021 alcohol? How many drinks containing alcohol [...] or relatives? How often do you attend jew or Patient refused 2020 scientology services? Do you belong to any clubs or Yes 05/25/2021 organizations such as jew groups, unions, fraternal or athletic groups, or [...] place to sleep or slept in a custodial (including now)? Sex Assigned at Date Recorded Not on file COVID-19 Exposure Response Date Recorded In the last 10 days, have you been in contact with No / Unsu re 02/27/2022 3:31 PM CDT someone who was confirmed or suspected to have Coronavirus/COVID-19? documented as of this encounter Progress Notes Diana Nielsen RN - 02/27/2022 5:50 PM CDT ANTICOAGULATION MANAGEMENT Virgil Christine 66 year old male is on warfarin with therapeutic INR result. (Goal INR 2.0-3.0) Recent labs: (last 7 days) 02/27/22 1533 INR 2.6* ASSESSMENT ??? Source(s): Chart Review and Patient/Caregiver Call ??? Warfarin doses taken: Warfarin taken as instructed ??? Diet: Increased greens/vitamin K in diet; plans to resume previous intake, as discussed at last INR to help counteract any interaction of amoxicillin with warfarin which could have raised INR. ??? New illness, injury, or hospitalization: No, tooth infection managed with antibiotics, he still has 2 more days. Did not schedule for tooth to be pulled and probably won't unless it bothers him again. ??? Medication/supplement changes: two more days of amoxicillin left. ??? Signs or symptoms of bleeding or clotting: No ??? Previous INR: Therapeutic last 2(+) visits ??? Additional findings: None PLAN Recommended plan for no diet, medication or health factor changes affecting INR Dosing Instructions: Continue your current warfarin dose with next INR in 6 weeks Summary As of 02/27/2022 Full warfarin instructions: 5 mg every Wed; 7.5 mg all other days Next INR check: 04/12/2022 Telephone call with Vrigil who verbalizes understanding and agrees to plan Lab visit scheduled Education provided: Please call back if any changes to your diet, medications or how you've been taking warfarin, Goal range and significance of current result, Monitoring for bleeding signs and symptoms, Monitoring for clotting signs and symptoms, When to seek medical attention/emergency care, Importance of notifying clinic of upcoming surgeries and procedures 2 weeks in advance and Contact [phone] with any changes, questions or concerns. 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 with INR goal of 2.0-3.0 [Z79.01] Comments: Anticoagulation Care Providers Provider Role Specialty Phone number Froylan Louise MD Referring Family Medicine [phone] documented in this encounter Plan of Treatment Upcoming Encounters Date Type Specialty Care Team Description 05/20/2022 Lab Lab documented as of this encounter Visit Diagnoses Diagnosis Chronic deep vein thrombosis (DVT) of lo wer extremity, unspecified laterality, unspecified vein (H) - Primary [facility] current use of anticoagulant t herapy 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
--- OUTSIDE RECORDS SUMMARY | 2022-05-15 22:15 | XMS_ITS | Encounter Summary ---
:1955 Author Organization [place] Address [facility] 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 How many drinks containing alcohol [...] or relatives? How often do you attend rastafarian or Patient refused 2020 orthodoxy services? Do you belong to any clubs or Yes 05/25/2021 organizations such as rastafarian groups, unions, fraternal or athletic groups, or [...] place to sleep or slept in a detention (including now)? Sex Assigned at Date Recorded Not on file COVID-19 Exposure Response Date Recorded In the last 10 days, have you been in contact No / Unsure 05/10/2022 12:29 PM [facility] with someone who was confirmed or suspected to have Coronavirus/COVID-19? documented as of this encounter Progress Notes Jazzy Ramos RN - 05/10/2022 12:49 PM CST ANTICOAGULATION MANAGEMENT Virgil Christine 66 year old male is on warfarin with supratherapeutic INR result. (Goal INR 2.0-3.0) Recent labs: (last 7 days) 05/10/22 1231 INR 4.2* ASSESSMENT ??? Source(s): Chart Review and Patient/Caregiver Call ??? Warfarin doses taken: Warfarin taken as instructed ??? Diet: No new diet changes identified ??? New illness, injury, or hospitalization: Yes: hurt his finger at work, it is swollen and he cannot bend it, he plans to ice it today. ??? Medication/supplement changes: None noted ??? Signs or symptoms of bleeding or clotting: No ??? Previous INR: Therapeutic last 2(+) visits ??? Additional findings: None PLAN Recommended plan for temporary change(s) affecting INR Dosing Instructions: hold dose then continue your current warfarin dose with next INR in 10 days Summary As of 05/10/2022 Full warfarin instructions: 05/10: Hold; Otherwise 5 mg every Wed; 7.5 mg all other days; Starting 05/10/2022 Next INR check: 05/20/2022 Telephone call with Virgil who verbalizes understanding and agrees to plan Lab visit scheduled Education provided: ??? Contact [phone] with any changes, questions or concerns. ??? 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 with INR goal of 2.0-3.0 [Z79.01] Comments: Anticoagulation Care Providers Provider Role Specialty Phone number Froylan Louise MD Referring Family Medicine [phone] [facility] documented in this encounter Plan of Treatment Upcoming Encounters Date Type Specialty Care Team Description 05/20/2022 Lab Lab documented as of this encounter Visit Diagnoses Diagnosis Chronic deep vein thrombosis (DVT) of lo wer extremity, unspecified laterality, unspecified vein (H) - Primary senior care current use of anticoagulant t herapy 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
--- OUTSIDE RECORDS SUMMARY | 2022-05-15 22:15 | XMS_ITS | Encounter Summary ---
:1955 Author Organization [place] Address [address] [place] [id number] Care Team Providers Name Role Phone Esthela Corea RN Unavailable Unavailable So Dodd MD Unavailable So Dodd MD Primary Care Provider Encounter Details Date Type Department Care Team Description 04/08/2022 Travel Social History Tobacco Use Types Packs/Day Years Used Date Smoking Tobacco: Former Cigarettes 2 25 Quit : 08/04/2006 Smokeless Tobacco: Never Comments: 2004 Alcohol Use Standard Drinks/Week Comments Yes 0 (1 standard drink = 0.6 oz pure alcoho l) 4 BEERS A day Alcohol Habits Answer Date Recorded How often do you have a drink containing 4 or more times a w [place] 05/25/2021 alcohol? How many drinks containing alcohol [...] or relatives? How often do you attend jain or Patient refused 2020 adventist services? Do you belong to any clubs or Yes 05/25/2021 organizations such as jain groups, unions, fraternal or athletic groups, or [...] on filedocumented in this encounter Care Teams Employment Attorney Relationship Specialty Start Date End Date So Dodd MD PCP - General Family Medicine 02/21/22 [address] [address] [place], [place] [id number] Esthela Corea RN Personal Advocate & Liaison Family Medicine 10/16 (PAL) So Dodd MD Assigned PCP 01/05/22 [address] [place], [place] [id number] documented as of this encounter
--- OUTSIDE RECORDS SUMMARY | 2022-05-15 22:15 | XMS_ITS | Encounter Summary ---
:1955 Author Organization [place] Address [facility] [place] [address] Care Team Providers Name Role Phone Nahomy, Esthela Conrad RN Unavailable Unavailable So Vigil MD Unavailable oS Vigil MD Primary Care Provider Reason for Visit Reason Comments Pre-Op Exam Encounter Details Date Type Department Care Team Description 04/08/2022 Office Visit [facility] So Vigil MD Pre-op evaluation; [facility] [address] [facility] Anal stenosis; [address] [place], [place] Mild persistent asthma witho ut complication; [place] [address] Chronic deep vein thrombosis (DVT) of lo wer extremity, unspecified laterality, unspecified vein (H); [id number] Insomnia, unspecified type Social History Tobacco Use Types Packs/Day Years Used Date Smoking Tobacco: Former Cigarettes 2 25 Quit : 08/04/2006 Smokeless Tobacco: Never Tobacco Cessation: Counseling Given: Not Answered Comments: 2004 Alcohol Use Standard Drinks/Week Comments Yes 0 (1 standard drink = 0.6 oz pure alcoho l) 4 BEERS A day Alcohol Habits Answer Date Recorded How often do you have a drink containing 4 or more times a w ute 05/25/2021 alcohol? How many drinks containing alcohol [...] or relatives? How often do you attend rastafari or Patient refused 2020 holiness services? Do you belong to any clubs or Yes 05/25/2021 organizations such as rastafari groups, unions, fraternal or athletic groups, or [...] Sign Reading Time Taken Comments Blood Pressure 122/64 04/08/2022 9:18 AM CDT Pulse 75 04/08/2022 9:18 AM CDT Temperature 36.8 ??C (98.2 ??F) 04/08/2022 9:18 AM CDT Respiratory Rate 16 04/08/2022 9:18 AM CDT Oxygen Saturation 97% 04/08/2022 9:18 AM CDT Inhaled Oxygen Concentration - - Weight 108.9 kg (240 lb) 04/08/2022 9:18 AM CDT Height 182.9 cm (6') 04/08/2022 9:18 AM CDT Body Mass Index 32.55 04/08/2022 9:18 AM CDT documented in this encounter Progress Notes Esthela Corea RN - 04/08/2022 9:30 AM CDT Pre-Visit Planning Next 5 appointments (look out 90 days) Apr 08, 2022 9:30 AM (Arrive by 9:10 AM) Pre-Operative Physical with So Vigil MD [facility] ([facility] ) [address] [facility] [address] Appointment Notes for this encounter: dilation of anal stenosis - requires 3 day warfarin hold Questionnaires Reviewed/Assigned PHQ 2 Patient preferred phone number: [phone] Contacted patient via phone . Are there any additional questions or concerns you'd like to review with your provider during your visit? No Visit is not preventive. Meds Home Meds reviewed and updated Entered patient-preferred pharmacy. Current Outpatient Medications Medication ??? Acetaminophen (TYLENOL 8 HOUR PO) ??? albuterol (PROAIR HFA/PROVENTIL HFA/VENTOLIN HFA) 108 (90 Base) MCG/ACT inhaler ??? fish oil-omega-3 fatty acids 1000 MG capsule ??? Fepaciwntcv-Pwqmvaerj-Mitijypuqv (TRELEGY ELLIPTA) 100-62.5-25 MCG/INH oral inhaler ??? lisinopril-hydrochlorothiazide (ZESTORETIC) 20-25 MG tablet ??? loperamide (IMODIUM) 2 MG capsule ??? montelukast (SINGULAIR) 10 MG tablet ??? multivitamin w/minerals (THERA-VIT-M) tablet ??? terazosin (HYTRIN) 5 MG capsule ??? triamcinolone (KENALOG) 0.1 % external cream ??? Vitamin Mixture (EMILY-C PO) ??? warfarin ANTICOAGULANT (COUMADIN) 5 MG tablet ??? warfarin ANTICOAGULANT (COUMADIN) 7.5 MG tablet ??? zolpidem ER (AMBIEN CR) 12.5 MG CR tablet No current facility-administered medications for this visit. Ma[facility]rano Patient is active on Maestrano. Call Summary Advised patient to call back at [phone] if needed. Esthela Corea RN So Vigil MD - 04/08/2022 9:30 AM CDT [address] [address] Primary Provider: So Vigil Pre-op Performing Provider: SO VIGIL {Provider Link to PREOP SmartSet Use this to apply standard patient instructions to AVS; includes medication directions, common orders, guidelines for anemia, warfarin, additional testing :[id number]} PREOPERATIVE EVALUATION: Today's date: 04/08/2022 Virgil Christine is a 66 year old male who presents for a preoperative evaluation Undergoing colonoscopy for anal stenosis . Surgical Information: Surgery/Procedure: Colonoscopy Surgery Location: [facility] Surgeon: Dr. Suazo Surgery Date: 04/19/2022 Time of Surgery: Where patient plans to recover: At home with family Fax number for surgical facility:[phone] Type of Anesthesia Anticipated: General Assessment & Plan The proposed surgical procedure is considered LOW risk. Undergoing colonoscopy for anal stenosis Pre-op evaluation Physical activity greater than 4 mets . Low perioperative cardiac risk . Patient is optimized for procedure . - CBC with platelets - Comprehensive metabolic panel (BMP + Alb, Alk Phos, ALT, AST, Total. Bili, TP) - EKG 12-lead complete w/read - Clinics No acute changes . Mild persistent asthma without complication Asthma well controlled . Recommend to continue albuterol and trelegy . Chronic deep vein thrombosis (DVT) of lower extremity, unspecified laterality, unspecified vein (H) - patient will hold coumadin . -Bridge it with the Lovenox . Risks and Recommendations: The patient has the following additional risks and recommendations for perioperative complications: - No identified additional risk factors other than previously addressed Medication Instructions: Patient will hold aspirin and ibuprofen prior to procedure . RECOMMENDATION: APPROVAL GIVEN to proceed with proposed procedure, without further diagnostic evaluation. Subjective HPI related to upcoming procedure: Preop Questions 04/08/2022 1. Have you ever had a heart attack or stroke? No 2. Have you ever had surgery on your heart or blood vessels, such as a stent placement, a coronary artery bypass, or surgery on an artery in your head, neck, heart, or legs? No 3. Do you have chest pain with activity? No 4. Do you have a history of heart failure? No 5. Do you currently have a cold, bronchitis or symptoms of other infection? No 6. Do you have a cough, shortness of breath, or wheezing? YES -no new symptoms 7. Do you or anyone in your family have previous history of blood clots? No 8. Do you or does anyone in your family have a serious bleeding problem such as prolonged bleeding following surgeries or cuts? No 9. Have you ever had problems with anemia or been told to take iron pills? YES - blood count normal 10. Have you had any abnormal blood loss such as black, tarry or bloody stools? No 11. Have you ever had a blood transfusion? No 12. Are you willing to have a blood transfusion if it is medically needed before, during, or after your surgery? Yes 13. Have you or any of your relatives ever had problems with anesthesia? No 14. Do you have sleep apnea, excessive snoring or daytime drowsiness? YES - 14a. Do you have a CPAP machine? No 15. Do you have any artifical heart valves or other implanted medical devices like a pacemaker, defibrillator, or continuous glucose monitor? No 16. Do you have artificial joints? YES - 17. Are you allergic to latex? No Health Care Directive: Patient does not have a Health Care Directive or Living Will: Review of Systems CONSTITUTIONAL: NEGATIVE for fever, chills, change in weight INTEGUMENTARY/SKIN: NEGATIVE for worrisome rashes, moles or lesions EYES: NEGATIVE for vision changes or irritation ENT/MOUTH: NEGATIVE for ear, mouth and throat problems RESP: NEGATIVE for significant cough or SOB CV: NEGATIVE for chest pain, palpitations or peripheral edema GI: NEGATIVE for nausea, abdominal pain, heartburn, or change in bowel habits : NEGATIVE for frequency, dysuria, or hematuria MUSCULOSKELETAL: NEGATIVE for significant arthralgias or myalgia NEURO: NEGATIVE for weakness, dizziness or paresthesias ENDOCRINE: NEGATIVE for temperature intolerance, skin/hair changes HEME: NEGATIVE for bleeding problems PSYCHIATRIC: NEGATIVE for changes in mood or affect Patient Active Problem List Diagnosis Date Noted ??? Health Nursing Home 07/16/2011 Priority: High EMERGENCY CARE PLAN Presenting Problem Signs and Symptoms Treatment Plan Questions or conerns during clinic hours I will call the clinic directly Questions or conerns outside clinic hours I will call the 24 hour nurse line at [phone] Patient needs to schedule an appointment I will call the 24 hour scheduling team at [phone] orclinic directly Same day treatment I will call the clinic first, nurse line if after hours, urgent care and expresscare if needed DX V65.8 REPLACED WITH [id number] [facility] (09/28/2012) ??? Morbid obesity (H) 02/21/2022 Priority: Medium ??? Essential hypertension 11/30/2021 Priority: Medium ??? senior living current use of anticoagulants with INR goal of 2.0-3.0 09/25/2021 Priority: Medium ??? Open knee wound, left, initial encounter 01/02/2021 Priority: Medium ??? Anal fistula 04/13/2018 Priority: Medium ??? Anal stenosis 04/13/2018 Priority: Medium ??? Chronic deep vein thrombosis (DVT) of lower extremity, unspecified laterality, unspecified vein (H) 12/31/2017 Priority: Medium ??? Long-term (current) use of anticoagulants [Z79.01] 12/10/2017 Priority: Medium ??? Other ulcerative colitis without complication (H) 06/05/2016 Priority: Medium ??? S/P colectomy 01/24/2016 Priority: Medium ??? Venous stasis ulcer, right 01/24/2016 Priority: Medium ??? Elevated fasting glucose 05/06/2015 Priority: Medium ??? Advanced directives, counseling/discussion (ACP) 04/28/2014 Priority: Medium Advance Care Planning: ACP Review and Resources Provided: Reviewed chart for advance care plan. Virgil Colvin Emmett has no plan orcode status on file. Discussed available resources and provided with information. Confirmed code status reflects current choices pending further ACP discussions. Confirmed/documented designated decision maker(s). See permanent comments section of demographics in clinical tab. Added by Wendi Lindsay on 04/28/2014 ??? 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 Status post unicompartmental knee replacement, right 08/20/2013 Priority: Medium ??? Personal history of DVT (deep vein thrombosis) 08/17/2013 Priority: Medium ? ? Hyperlipidemia LDL goal <130 08/14/2011 Priority: Medium ??? Mild persistent asthma 04/18/2010 Priority: Medium ??? Anticardiolipin antibody positive 12/14/2008 Priority: Medium Overview: Overview: DVT and PE DVT and PE Past Medical History: Diagnosis Date ??? Antiplatelet or antithrombotic long-term use ??? Arthritis back, elbows ??? Coagulation disorder (H) ??? COPD (chronic obstructive pulmonary disease) (H) mild ??? DVT (deep venous thrombosis) (H) 2014 RIGHT LEG AFTER COLON SURGERY. ??? DVT (deep venous thrombosis) (H) 10/01/2017 Extensive requiring thrombectomy ??? Factor V deficiency (H) ??? History of blood transfusion ??? Hypertension ??? Personal history of DVT (deep vein thrombosis) 08/17/2013 ??? Sleep apnea NOT BEING TREATED FOR THIS. ??? Ulcerative colitis (H) Had Colectomy ??? Uncomplicated asthma mild ??? Unspecified hemorrhoids without mention of complication Hemorrhoids Past Surgical History: Procedure Laterality Date ??? ARTHROPLASTY KNEE UNICOMPARTMENT 08/20/2013 Procedure: ARTHROPLASTY KNEE UNICOMPARTMENT; Right Knee Uni Arthroplasty ; Surgeon: Jose Fonseca MD; Location: [facility] OR ??? COLECTOMY ??? EXAM UNDER ANESTHESIA RECTUM N/A 06/12/2018 Procedure: Exam under anesthesia, pouchoscopy, Incision and drainage of abscess. POUCHOSCOPY ; Surgeon: Chase Suazo MD; Location: [facility] OR ??? bindu filter ??? IRRIGATION AND DEBRIDEMENT LOWER EXTREMITY, COMBINED Left 01/15/2021 Procedure: LEFT KNEE WOUND DEBRIDEMENT WITH SONIC 1 AND VERAFLO VAC PLACEMENT; Surgeon: Uriel Nuñez MD; Location: [facility] OR ??? ORTHOPEDIC SURGERY ??? POUCHOSCOPY N/A 06/22/2014 Procedure: POUCHOSCOPY; Surgeon: Chase Suazo MD; Location: [facility] ??? POUCHOSCOPY N/A 06/20/2017 Procedure: POUCHOSCOPY; POUCHOSCOPY ; Surgeon: Chase Suazo MD; Location: [facility] ??? POUCHOSCOPY N/A 06/12/2018 Procedure: POUCHOSCOPY; Surgeon: Chase Suazo MD; Location: [facility] OR ??? POUCHOSCOPY N/A 10/12/2020 Procedure: POUCHOSCOPY; Surgeon: Chase Suazo MD; Location: [facility] ??? RESECTION ABDOMINAL PERINEAL Current Outpatient Medications Medication Sig Dispense Refill ??? albuterol (PROAIR HFA/PROVENTIL HFA/VENTOLIN HFA) 108 (90 Base) MCG/ACT inhaler Inhale 2 puffs into the lungs every 6 hours as needed for shortness of breath / dyspnea or wheezing 18 g 3 ??? Sftglrfkysj-Kqkpjzhcw-Frfmfaqlah (TRELEGY ELLIPTA) 100-62.5-25 MCG/INH oral inhaler INHALE 1 PUFF BY MOUTH EVERY DAY 180 each 3 ??? lisinopril-hydrochlorothiazide (ZESTORETIC) 20-25 MG tablet Take 1 tablet by mouth daily 90 tablet 3 ??? loperamide (IMODIUM) 2 MG capsule TAKE 3-4 CAPSULES (6-8 MG) BY MOUTH 3 TIMES DAILY NEEDED FOR DIARRHEA 480 capsule 1 ??? montelukast (SINGULAIR) 10 MG tablet Take 1 tablet (10 mg) by mouth At Bedtime 90 tablet 1 ??? multivitamin w/minerals (THERA-VIT-M) tablet Take 1 tablet by mouth daily ??? terazosin (HYTRIN) 5 MG capsule Take 1 capsule (5 mg) by mouth At Bedtime 90 capsule 3 ??? triamcinolone (KENALOG) 0.1 % external cream APPLY TO AFFECTED AREA TWICE A DAY 30 g 1 ??? Vitamin Mixture (EMILY-C PO) Take 2 capsules by mouth 2 times daily ??? warfarin ANTICOAGULANT (COUMADIN) 5 MG tablet Take 1 tablet (5 mg) every Friday 30 tablet 1 ??? warfarin ANTICOAGULANT (COUMADIN) 7.5 MG tablet Take 1 tab 6 times a week as directed 78 tablet 1 ??? zolpidem ER (AMBIEN CR) 12.5 MG CR tablet TAKE 1 TABLET BY MOUTH EVERY DAY AT BEDTIME NEEDED FOR SLEEP 30 tablet 0 ??? Acetaminophen (TYLENOL 8 HOUR PO) Take 1,000 mg by mouth 2 times daily (2 X 500 mg) ??? fish oil-omega-3 fatty acids 1000 MG capsule Take 2 g by mouth every morning Allergies Allergen Reactions ??? Keflex [Cephalexin] Nausea Social History Tobacco Use ??? Smoking status: Former Packs/day: 2.00 Years: 25.00 Pack years: 50.00 Types: Cigarettes Quit date: 08/04/2006 Years since quittin.6 ??? Smokeless tobacco: Never ??? Tobacco comments: 2005 Substance Use Topics ??? Alcohol use: Yes Comment: 4 BEERS A day Family History Problem Relation Age of Onset ??? Diabetes Mother ??? Colon Cancer No family hx of History Drug Use No Objective BP 122/64 (BP Location: Right arm, Patient Position: Sitting, Cuff Size: Adult Large) Pulse 75 Temp 98.2 ??F (36.8 ??C) Resp 16 Ht 1.829 m (6') Wt 108.9 kg (240 lb) SpO2 97% BMI 32.55 kg/m?? Physical Exam GENERAL APPEARANCE: healthy, alert and no distress EYES: EOMI, PERRL HENT: ear canals and TM's normal and nose and mouth without ulcers or lesions NECK: no adenopathy, no asymmetry, masses, or scars and thyroid normal to palpation RESP: lungs clear to auscultation - no rales, rhonchi or wheezes CV: regular rates and rhythm, normal S1 S2, no S3 or S4 and no murmur, click or rub ABDOMEN: soft, nontender, no HSM or masses and bowel sounds normal MS: extremities normal- no gross deformities noted, no evidence of inflammation in joints, FROM in all extremities. SKIN: no suspicious lesions or rashes NEURO: Normal strength and tone, sensory exam grossly normal, mentation intact and speech normal Recent Labs Lab Test 02/27/22 1533 02/21/22 1531 01/10/22 1314 11/30/21 1548 10/23/21 1548 09/27/21 1249 06/28/21 1112 05/25/21 1959 05/25/21 1636 HGB -- -- -- 12.4* -- 12.8* -- -- 12.8* PLT -- -- -- 220 -- 214 -- -- 198 INR 2.6* 2.6* < > -- < > -- < > -- -- NA -- -- -- 138 -- -- -- -- 137 POTASSIUM -- -- -- 4.2 -- -- -- -- 4.1 CR -- -- -- 1.01 -- -- -- -- 0.95 A1C -- -- -- -- -- -- -- 5.8* -- < > = values in this interval not displayed. Diagnostics: Recent Results (from the past 24 hour(s)) CBC with platelets Collection Time: 04/08/22 10:09 AM Result Value Ref Range WBC Count 7.1 4.0 - 11.0 10e3/uL RBC Count 4.52 4.40 - 5.90 10e6/uL Hemoglobin 14.0 13.3 - 17.7 g/dL Hematocrit 42.6 40.0 - 53.0 % MCV 94 78 - 100 fL MCH 31.0 26.5 - 33.0 pg MCHC 32.9 31.5 - 36.5 g/dL RDW 14.8 10.0 - 15.0 % Platelet Count 182 150 - 450 10e3/uL EKG: appears normal, NSR, normal axis, normal intervals, no acute ST/T changes c/w ischemia, no LVH by voltage criteria, unchanged from previous tracings Revised Cardiac Risk Index (RCRI): The patient has the following serious cardiovascular risks for perioperative complications: - No serious cardiac risks = 0 points RCRI Interpretation: 0 points: Class I (very low risk - 0.4% complication rate) Signed Electronically by: So Vigil MD Copy of this evaluation report is provided to requesting physician. Cheryl Garrett - 04/08/2022 9:30 AM CDT Preop faxed ,Cheryl Garrett/ [employer] . documented in this encounter Miscellaneous Notes Addendum Note - So Vigil MD - 04/08/2022 9:30 AM CDT Addended by: SO VIGIL on: 04/08/2022 06:14 PM Modules accepted: Orders documented in this encounter Plan of Treatment Upcoming Encounters Date Type Specialty Care Team Description 05/20/2022 Lab Lab documented as of this encounter Procedures Procedure Name Priority Date/Time Associated Comments Diagnosis COMPREHENSIVE Routine 04/08/2022 10:09 Pre-op evaluation Resul ts for this METABOLIC PANEL AM CDT procedure ar e in the results section. CBC WITH PLATELETS Routine 04/08/2022 10:09 Pre-op evaluation Results for this AM CDT procedure are i n the results section. documented in this encounter Results (ABNORMAL) Comprehensive metabolic panel (BMP + Alb, Alk Phos, ALT, AST, Total. Bili, TP) (04/08/2022 10:09 AM CDT) [facility] Method Time Signature Sodium 138 133 - 144 04/08/2022 [facility] mmol/L 6:16 PM CDT Potassium 4.0 3.4 - 5.3 04/08/2022 [facility] mmol/L 6:16 PM CDT Chloride 105 94 - 109 04/08/2022 [facility] mmol/L 6:16 PM CDT Carbon Dioxide 27 20 - 32 04/08/2022 [facility] (CO2) mmol/L 6:16 PM CDT Anion Gap 6 3 - 14 04/08/2022 [facility] mmol/L 6:16 PM CDT Urea Nitrogen 16 7 - 30 04/08/2022 [facility] mg/dL 6:16 PM CDT Creatinine 0.90 0.66 - 04/08/2022 [facility] 1.25 mg/dL 6:16 PM CDT Calcium 9.2 8.5 - 10.1 04/08/2022 [facility] mg/dL 6:16 PM CDT Glucose 112 (H) 70 - 99 04/08/2022 [facility] mg/dL 6:16 PM CDT Alkaline 88 40 - 150 04/08/2022 [facility] Phosphatase U/L 6:16 PM CDT AST 24 0 - 45 U/L 04/08/2022 [facility] 6:16 PM CDT ALT 35 0 - 70 U/L 04/08/2022 [facility] 6:16 PM CDT Protein Total 7.3 6.8 - 8.8 04/08/2022 [facility] g/dL 6:16 PM CDT Albumin 3.5 3.4 - 5.0 04/08/2022 [facility] g/dL 6:16 PM CDT Bilirubin Total 0.7 0.2 - 1.3 04/08/2022 [facility] mg/dL 6:16 PM CDT GFR Estimate >90 >60 04/08/2022 [facility] mL/min/1.7 6:16 PM CDT 3m2 Comment: Effective June 12, 2021 eGF Rcr in adults is calculated using the 2020 CKD-EPI creatinine equation which includ es age and gender (Kaylen et al., NEJM, DOI: 10.1056/CDWEos0203719) Specimen Anatomical Collection Method / Collection Time Recei lindy Time (Source) Location / Volume Laterality Blood BLOOD SPECIMEN / Venipuncture / 04/08/2022 10:09 04/08 Unknown Unknown AM CDT 10:10 AM CDT So Vigil MD LAB - BLOOD ORDERABLES Performing Organization Address City/State/ZIP Code Phon e Number [facility] - [place], [place] [phone] [facility] [address] Lab (no room number, 1st floor of clinic) [facility] [place], [place] [phone] [facility] [phone] [place] [facility] [address] Lab (no room number, 1st floor of clinic) CBC with platelets (04/08/2022 10:09 AM CDT) P athologist Signature WBC Count 7.1 4.0 - 11.0 04/08/2022 [facility] 10e3/uL 10:12 AM CDT RBC Count 4.52 4.40 - 04/08/2022 [facility] 5.90 10:12 AM CDT 10e6/uL Hemoglobin 14.0 13.3 - 04/08/2022 [facility] 17.7 g/dL 10:12 AM CDT Hematocrit 42.6 40.0 - 04/08/2022 [facility] 53.0 % 10:12 AM CDT MCV 94 78 - 100 04/08/2022 [facility] fL 10:12 AM CDT MCH 31.0 26.5 - 04/08/2022 [facility] 33.0 pg 10:12 AM CDT MCHC 32.9 31.5 - 04/08/2022 [facility] 36.5 g/dL 10:12 AM CDT RDW 14.8 10.0 - 04/08/2022 [facility] 15.0 % 10:12 AM CDT Platelet Count 182 150 - 450 04/08/2022 [facility] 10e3/uL 10:12 AM CDT Specimen Anatomical Collection Method / Collection Time Recei lindy Time (Source) Location / Volume Laterality Blood BLOOD SPECIMEN / Venipuncture / 04/08/2022 10:09 04/08 Unknown Unknown AM CDT 10:10 AM CDT So Vigil MD LAB - BLOOD ORDERABLES Performing Organization Address City/State/ZIP Code [place] [address] Lab [address] [facility] Lab (no room number, 1st floor of clinic) [place] [address], [phone] [facility] [place] [address] Lab (no room number, 1st floor of clinic) documented in this encounter Visit Diagnoses Diagnosis Pre-op evaluation Preoperative examination, unspecified Anal stenosis Stenosis of rectum and anus Mild persistent asthma without complicat ion Unspecified asthma Chronic deep vein thrombosis (DVT) of lo wer extremity, unspecified laterality, unspecified vein (H) Insomnia, unspecified type documented in this encounter Care Teams Passenger Screener Relationship Specialty Start Date End Date So Vigil MD PCP - General Family Medicine 02/21/22 [address] [place] [address] Esthela Corea RN Personal Advocate & Liaison Family Medicine 10/16 (PAL) So Vigil MD Assigned PCP 01/05/22 [address] [place] [address] documented as of this encounter
--- OUTSIDE RECORDS SUMMARY | 2022-05-15 22:15 | XMS_ITS | Clinical Summary ---
:1955 Author Organization [facility] Address [address] [place] [address] Care Team Providers Name Role Phone Nahomy, Esthela Conrad RN Unavailable Unavailable So Dodd MD Unavailable So Dodd MD Primary Care Provider Allergies Active Allergy Reactions Severity Noted Date Comments Cephalexin Nausea 02/27/2021 Medications Medication Sig Dispensed Refills Start End Status Date Date Acetaminophen Take 1,000 mg by 0 Active (TYLENOL 8 HOUR PO) mouth 2 times daily (2 X 500 mg) warfarin Take 1 tablet (5 30 tablet 1 07/20/19 Act chari ANTICOAGULANT mg) every (COUMADIN) 5 MG Friday tabletIndications: Acute deep vein thrombosis (DVT) of proximal vein of both lower extremities (H), ferry terminal agent current use of anticoagulants with INR goal of 2.0-3.0 fish oil-omega-3 Take 2 g by 0 A ctive fatty acids 1000 MG mouth every capsule morning Vitamin Mixture Take 2 capsules 0 Active (EMILY-C PO) by mouth 2 times daily triamcinolone APPLY TO 30 g 1 04/19/20 Active (KENALOG) 0.1 % AFFECTED AREA 21 external TWICE A DAY creamIndications: Lichen planus multivitamin Take 1 tablet by 0 Active w/minerals mouth daily (THERA-VIT-M) tablet warfarin Take 1 tab 6 78 tablet 1 02/22/20 Active ANTICOAGULANT times a week as 22 (COUMADIN) 7.5 MG directed tabletIndications: Acute deep vein thrombosis (DVT) of proximal vein of both lower extremities (H) terazosin (HYTRIN) Take 1 capsule 90 capsule 3 02/22/20 Active 5 MG (5 mg) by mouth 22 capsuleIndications: At Bedtime Benign prostatic hyperplasia with lower urinary tract symptoms, symptom details unspecified lisinopril-hydrochl Take 1 tablet by 90 tablet 3 02/22/20 Active orothiazide mouth daily 22 (ZESTORETIC) 20-25 MG tabletIndications: Benign essential hypertension loperamide TAKE 3-4 480 capsule 1 02/22/20 Active (IMODIUM) 2 MG CAPSULES (6-8 22 capsuleIndications: MG) BY MOUTH 3 H/O ulcerative TIMES DAILY colitis NEEDED FOR DIARRHEA albuterol (PROAIR Inhale 2 puffs 18 g 3 02/22/20 Active HFA/PROVENTIL into the lungs 22 HFA/VENTOLIN HFA) every 6 hours as 108 (90 Base) needed for MCG/ACT inhaler shortness of breath / dyspnea or wheezing Fluticasone-Umeclid INHALE 1 PUFF BY 180 each 3 02/22/20 Active in-Vilanterol MOUTH EVERY DAY 22 (TRELEGY ELLIPTA) 100-62.5-25 MCG/INH oral inhalerIndications: Moderate persistent asthma, uncomplicated montelukast Take 1 tablet 90 tablet 1 02/22/20 Acti ve (SINGULAIR) 10 MG (10 mg) by mouth 22 tabletIndications: At Bedtime Moderate persistent asthma, uncomplicated zolpidem ER (AMBIEN TAKE 1 TABLET BY 30 tablet 1 04/08/20 Active CR) 12.5 MG CR MOUTH EVERY DAY 22 tabletIndications: AT BEDTIME Insomnia, NEEDED FOR SLEEP unspecified type enoxaparin Inject 0.4 mLs 5.6 mL 1 04/10/20 Disc ontinued ANTICOAGULANT (40 mg) 22 022 (Thera py (LOVENOX) 40 Subcutaneous comp leted) MG/0.4ML every 24 hours syringeIndications: Chronic deep vein thrombosis (DVT) of lower extremity, unspecified laterality, unspecified vein (H), Postthrombotic syndrome, Anticardiolipin antibody positive, prison current use of anticoagulants with INR goal of 2.0-3.0 Active Problems Problem Noted Date Morbid obesity 02/21/2022 Essential hypertension 11/30/2021 prison current use of anticoagulants with INR goal of 2.0-3.0 09/25/2021 Open knee wound, left, initial encounter 01/02/2021 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 Virgil Christine has no plan or code status on file. Discussed available resources and provided with information. Confirmed code stat us reflects current choices pending furt her ACP discussions. Confirmed/documented designated decision maker(s). See permanent comments section of demographics in clinical tab. Added by Wendi Lindsay on 04/28/2014 Postthrombotic syndrome 03/06/2014 Status post unicompartmental knee replacement, right 0 08/20/2013 Personal history of DVT (deep vein thrombosis) 014 Hyperlipidemia LDL goal <130 08/14/2011 Health Correction 07/16/2011 Overview: Formatting of this note is dif ferent from the original. EMERGENCY CARE PLAN Presenting Problem Signs and Symptoms Tr eatment Plan Questions or conerns during clinic hour s I will call the clinic directly Questions or conerns outside clinic twan rs I will call the 24 hour nurse line at [phone] Patient needs to schedule an appointmen t I will call the 24 hour scheduling team at [phone] or clinic directly Same day treatment I will call the clin ic first, nurse line if after hours, urgent care and express care if needed DX V65.8 REPLACED WITH [id number] HEALTH SHELTER (09/28/2012) Mild persistent asthma 04/18/2010 Anticardiolipin antibody positive 12/14/2008 Overview: Overview: Overview: DVT and PE DVT and PE Resolved Problems Problem Noted Date Resolved Date Morbid obesity 01/12/2021 11/30/2021 Varicose veins of right lower extremity with both ulcer of 0 08/28/2018 02/22/2022 ankle and inflammation (CODE) H/O ulcerative colitis 03/06/2014 06/05/2016 Overview: S/p colectomy Obesity 03/06/2014 05/04/2015 Edema leg 11/20/2007 03/06/2014 Ulcerative colitis 10/20/2007 03/06/2014 Overview: Problem list name updated by automated p rocess. Provider to review Dyspnea and respiratory abnormality 10/20/200703/24 Overview: COPD vs Asthma Problem list name updated by automated p rocess. Provider to review Embolism and thrombosis 10/20/2007 08/17/2013 Overview: Recurrent since February 2007. Unsure, but he may have had PE as well. Problem list name updated by automated p Magma HQess. Provider to review Encounters Date Type Specialty Care Team Description 05/11/2022 Telephone [facility] So Dodd Compression socks 05/10/2022 Lab Lab Postthrombotic syndrome; Chronic deep ve in thrombosis (DVT) of lower extremity, unspecified laterality, unspecified vein (H); Anticardiolipin antibody positive; ferry terminal agent curre nt use of anticoagulants with INR goal of 2.0-3.0 05/10/2022 Telephone [facility] So Dodd Anticoagula tion MD (Eating 1 avoca do everyday) 05/10/2022 Anticoagulation Anticoagulation Jazzy Ramos, Chronic deep vein thrombosis (DVT) of lower extremity, unspecified laterality, unspecified vein (H) (Primary Dx); Therapy Visit RN ferry terminal agent curr ent use of anticoagulant therapy; Postthrombotic syndrome; Anticardiolipin antibody positive; ferry terminal agent curre nt use of anticoagulants with INR goal of 2.0-3.0 05/10/2022 Travel 04/26/2022 Lab Lab Postthrombotic syndrome; Chronic deep ve in thrombosis (DVT) of lower extremity, unspecified laterality, unspecified vein (H); Anticardiolipin antibody positive; ferry terminal agent curre nt use of anticoagulants with INR goal of 2.0-3.0 04/26/2022 Anticoagulation Anticoagulation Mary Humphrey eep vein thrombosis (DVT) of lower extremity, unspecified laterality, unspecified vein (H) (Primary Dx); Therapy Visit Shaniqua Hein RN ferry terminal agent cur rent use of anticoagulant therapy; Postthrombotic syndrome; Anticardiolipin antibody positive; prison curre nt use of anticoagulants with INR goal of 2.0-3.0 04/26/2022 Travel 04/24/2022 Lab Lab Postthrombotic syndrome; Chronic deep ve in thrombosis (DVT) of lower extremity, unspecified laterality, unspecified vein (H); Anticardiolipin antibody positive; ferry terminal agent curre nt use of anticoagulants with INR goal of 2.0-3.0 04/24/2022 Anticoagulation Anticoagulation Elfiki, Chronic d eep vein thrombosis (DVT) of lower extremity, unspecified laterality, unspecified vein (H) (Primary Dx); Therapy Visit Diana Conrad RN ferry terminal agent cur rent use of anticoagulant therapy; Postthrombotic syndrome; Anticardiolipin antibody positive; ferry terminal agent curre nt use of anticoagulants with INR goal of 2.0-3.0 04/24/2022 Telephone [facility] So Dodd, Call Back ( Patient MD called in reque sting Warfarin instru ctions would like a ca ll back) 04/24/2022 Travel 04/12/2022 Telephone [facility] So Dodd Call Back 04/08/2022 Office Visit [facility] So Dodd, Pre-op eval uation; Anal stenosis; Mild persistent asthma without complication; Chronic deep ve in thrombosis (DVT) of lower extremity, unspecified laterality, unspecified vein (H); Insomnia, unspe cified type 04/08/2022 Travel 03/27/2022 Telephone [facility] So Dodd, Patient Req bozena VILLASEÑOR (Requesting to speak with CINDY Proctor) ; Anticoagulation (Warfarin Hold plan for procedure 04/19/22) 03/01/2022 Refill Family Practice Froylan Louise Medication Refill MD Sedrick 02/27/2022 Lab Lab Postthrombotic syndrome; Chronic deep ve in thrombosis (DVT) of lower extremity, unspecified laterality, unspecified vein (H); Anticardiolipin antibody positive; prison curre nt use of anticoagulants with INR goal of 2.0-3.0 02/27/2022 Anticoagulation Anticoagulation Elfiki, Chronic d eep vein thrombosis (DVT) of lower extremity, unspecified laterality, unspecified vein (H) (Primary Dx); Therapy Visit Diana Conrad RN prison cur rent use of anticoagulant therapy; Postthrombotic syndrome; Anticardiolipin antibody positive; prison curre nt use of anticoagulants with INR goal of 2.0-3.0 02/27/2022 Travel 02/21/2022 Office Visit Family Practice So Dodd, Acute deep vein thrombosis (DVT) of proximal vein of both lower extremities (H); prison curre nt use of anticoagulants with INR goal of 2.0-3.0; Morbid obesity (H); Benign prostati c hyperplasia with lower urinary tract symptoms, symptom details unspecified; Benign essentia l hypertension; H/O ulcerative colitis; Moderate persis tent asthma, uncomplicated; Dental infectio n; Anal fistula 02/21/2022 Lab Lab Postthrombotic syndrome; Chronic deep ve in thrombosis (DVT) of lower extremity, unspecified laterality, unspecified vein (H); Anticardiolipin antibody positive; prison curre nt use of anticoagulants with INR goal of 2.0-3.0 02/21/2022 Anticoagulation Anticoagulation Elfiki, Chronic d eep vein thrombosis (DVT) of lower extremity, unspecified laterality, unspecified vein (H) (Primary Dx); Therapy Visit Diana Conrad RN ferry terminal agent cur rent use of anticoagulant therapy; Postthrombotic syndrome; Anticardiolipin antibody positive; ferry terminal agent curre nt use of anticoagulants with INR goal of 2.0-3.0 02/21/2022 Travel 02/18/2022 Refill Family Practice Froylan Louise Medication Refill MD Sedrick 02/15/2022 Refill Family Practice Froylan Louise Medication Refill MD Sedrick from Last 3 Months Immunizations Name Administration Dates Next Due COVID-19 Vaccine 18+ (Moderna) 12/12/2020, 11/10/2020 COVID-19,PF,Moderna Booster 05/25/2021 Influenza (IIV3) PF 02/21/2015, 04/17/2013, 04/07/2011, 03/18/2010, 03/15/2009 Influenza Vaccine 50-64 or 18-64 05/25/2021, 04/18/2020 w/egg allergy (Flublok) Influenza Vaccine >6 months 04/09/2019, 03/23/2018, 04/24/20 16 (Alfuria,Fluzone) Pneumococcal 23 valent 05/26/2020 TD (ADULT, 7+) 07/07/2003 TDAP Vaccine (Boostrix) 07/07/2013 Family History Medical History Relation Comments Diabetes Mother Colon Cancer No family hx of Relation Status Comments Father Mother Social History Tobacco Use Types Packs/Day Years [...] containing 4 or more times a w kotzebue 05/25/2021 alcohol? How many drinks containing alcohol [...] or relatives? How often do you attend yazidism or Patient refused 2020 religion services? Do you belong to any clubs or Yes 05/25/2021 organizations such as yazidism groups, unions, fraternal or athletic groups, or [...] to sleep or slept in a senior care (including now)? Sex Assigned at Date Recorded Not on file COVID-19 Exposure Response Date Recorded In the last 10 days, have you been in contact No / Unsure 05/10/2022 12:29 PM HELP DESK TEAM LEADER with someone who was confirmed or suspected to have Coronavirus/COVID-19? Last Filed Vital Signs Vital Sign Reading [...] Mass Index 32.55 04/08/2022 9:18 AM CDT Plan of Treatment Upcoming Encounters Date Type Specialty Care Team Description 05/20/2022 Lab Lab Health Maintenance Due Date Last Done Comments CT COLONOGRAPHY 1955 FIT-DNA (Cologuard) 1955 FIT 1955 FLEX SIG 1955 ZOSTER IMMUNIZATION (1 of 12/02/2007 2) COLONOSCOPY 10/12/2016 10/12/2006, 09/19/2006 ASTHMA ACTION PLAN 01/10/2020 01/09/2019, 01/09/2019, 05/11/2015, Additional history exists Pneumococcal Vaccine: 05/26/2021 05/26/2020 Pediatrics (0 to 5 Years) and At-Risk Patients (6 to 64 Years) (2 - PCV) COVID-19 Vaccine (4 - 07/20/2021 05/25/2021, 12/12/2020, Booster for Moderna 11/10/2020 series) INFLUENZA VACCINE (#1) 2022 05/25/2021, 04/18/2020, 04/09/2019, Additional history exists ANNUAL REVIEW OF HM ORDERS 05/25/2022 05/25/2021, YEARLY PREVENTIVE VISIT 05/25/2022 05/25/2021, 05/26/2020, 06/13/2017, Additional history exists ASTHMA CONTROL TEST 08/21/2022 02/21/2022, 11/30/2021, 05/25/2021, Additional history exists DTAP/TDAP/TD IMMUNIZATION 07/07/2023 07/07/2013, 07/07/2003 (3 - Td or Tdap) ADVANCE CARE PLANNING 05/29/2025 05/29/2020, 04/28/2014 LIPID 05/25/2026 05/25/2021, 09/03/2020, 05/25/2017, Additional history exists LUNG CANCER SCREENING Discontinued 03/12/2018 HIV SCREENING Completed 05/31/2019 HEPATITIS C SCREENING Completed 01/04/2020, 01/09/2019, 07/07/2013 PHQ-2 (once per calendar Completed 04/08/2022, 05/25/2021, year) 11/03/2020, Additional history exists COLORECTAL CANCER Discontinued SCREENING IPV IMMUNIZATION Aged Out No longer eligi ble based on patient 's age to complete this topic MENINGITIS IMMUNIZATION Aged Out No longe r eligible based on patient 's age to complete this topic Medical Devices Implanted Type Area Automotive Parts Clerk Device Shelf Model / Identifier Expiration Date Ser ial / Lot Tibial Insert Sz4 X8mm Right: 017 [id number] / Implanted: Qty: 1 on 08/20/2013 by Leon hill, Jose Meyers MD at [facility] Knee / [id number] Procedures Procedure Name Priority Date/Time Associated Diagnosis Comme nts INR POINT OF CARE Routine 05/10/2022 12:31 Postthrombotic Resu lts for this PM HELP DESK TEAM LEADER syndrome procedure are in Chronic deep vein the result s thrombosis (DVT) of section. lower extremity, unspecified laterality, unspecified vein (H) Anticardiolipin antibody positiv e ferry terminal agent current use of anticoagulants with INR goal of 2.0-3.0 INR POINT OF CARE Routine 04/26/2022 12:20 Postthrombotic Resu lts for this PM CDT syndrome procedure are in Chronic deep vein the result s thrombosis (DVT) of section. lower extremity, unspecified laterality, unspecified vein (H) Anticardiolipin antibody positiv e ferry terminal agent current use of anticoagulants with INR goal of 2.0-3.0 INR POINT OF CARE Routine 04/24/2022 2:13 Postthrombotic Resul ts for this PM CDT syndrome procedure are in Chronic deep vein the result s thrombosis (DVT) of section. lower extremity, unspecified laterality, unspecified vein (H) Anticardiolipin antibody positiv e prison current use of anticoagulants with INR goal of 2.0-3.0 COMPREHENSIVE Routine 04/08/2022 10:09 Pre-op evaluation Resul ts for this METABOLIC PANEL AM CDT procedure ar e in the results section. CBC WITH PLATELETS Routine 04/08/2022 10:09 Pre-op evaluation Results for this AM CDT procedure are i n the results section. INR POINT OF CARE Routine 02/27/2022 3:33 Postthrombotic Resul ts for this PM CDT syndrome procedure are in Chronic deep vein the result s thrombosis (DVT) of section. lower extremity, unspecified laterality, unspecified vein (H) Anticardiolipin antibody positiv e ferry terminal agent current use of anticoagulants with INR goal of 2.0-3.0 INR POINT OF CARE Routine 02/21/2022 3:31 Postthrombotic Resul ts for this PM CDT syndrome procedure are in Chronic deep vein the result s thrombosis (DVT) of section. lower extremity, unspecified laterality, unspecified vein (H) Anticardiolipin antibody positiv e ferry terminal agent current use of anticoagulants with INR goal of 2.0-3.0 from Last 3 Months Results (ABNORMAL) INR point of care (05/10/2022 12:31 PM HELP DESK TEAM LEADER)Only the most recent of5 resultswithin the time period is included. P athologist Signature INR 4.2 (H) 0.9 - 1.1 05/10/2022 [facility] 12:37 PM HELP DESK TEAM LEADER Specimen Anatomical Collection Method Collection Time Receive d Time (Source) Location / / Volume Laterality Blood STRUCTURE OF Capillary / 05/10/2022 12:31 05/10/2022 FINGER OF RIGHT Unknown PM HELP DESK TEAM LEADER 12:32 PM HELP DESK TEAM LEADER HAND / Unknown Narrative [facility] - 05/10/2022 12:37 PM HELP DESK TEAM LEADER This test is intended for monitoring Cou madin therapy. Results are not accurate in patients with prolonged INR due to facto r deficiency. Froylan Louise MD LAB - BLOOD ORDERABLES Performing Organization Address City/State/ZIP Code [place] [address] Lab [address] [facility] Lab (no room number, 1st floor of clinic) [place] [address], [phone] [facility] [address] [facility] Lab (no room number, 1st floor of clinic) (ABNORMAL) Comprehensive metabolic panel (BMP + Alb, Alk Phos, ALT, AST, Total. Bili, TP) (04/08/2022 10:09 AM CDT) Patholo gist Method Time Signature Sodium 138 133 - [...] and gender (Kaylen et al., NEJM, DOI: 10.1056/[id number]) Specimen Anatomical Collection Method / Collection Time Recei lindy Time (Source) Location / Volume Laterality Blood BLOOD SPECIMEN / Venipuncture / 04/08/2022 10:09 04/08 Unknown Unknown AM CDT 10:10 AM CDT So Dodd MD LAB - BLOOD ORDERABLES Performing Organization Address City/State/ZIP Code Phon e Number [facility] [place] [place] [phone] [facility] [address] [place] [address] Lab (no room number, 1st floor of clinic) [facility] [place], [place] [phone] [facility] [address] [place] [facility] [address] Lab (no room number, 1st floor [...] Unknown AM CDT 10:10 AM CDT So Dodd MD LAB - BLOOD ORDERABLES Performing Organization Address City/State/ZIP Code [place] [address] Lab [address] [facility] Lab (no room number, 1st floor of clinic) [place] [address], [facility] [address] [facility] Lab (no room number, 1st floor of clinic) from Last 3 Months Insurance Payer Benefit Plan / Subscriber ID Effective Phone Address T ype Group Dates [facility] [id number] 2015-Pres [phone] [address] HMO OPEN ACCESS ent [address] [place] [address] [address] (Home) [place] [address] Virgil Christine [employer] Self 1955 [address] (Home) [place] [address] Advance Directives For more information, please contact: [phone] Latest Code Status on File Code Status Date Activated Date Inactivated Comments Full Code 01/15/2021 11:12 AM 01/19/2021 11:41 AM All basic and advanced life-sustaining interventions are performed as antionette ropriate Question Answer Comments Code status determined by: Discussion with patient/ legal de cision maker Care Teams Transcription Relationship Specialty Start Date End Date So Dodd MD PCP - General Family Medicine 02/21/22 [address] [place] [address] Esthela Corea RN Personal Advocate & Liaison Family Medicine 10/16 (PAL) So Dodd MD Assigned PCP 01/05/22 [address] [place] [address]
--- OUTSIDE RECORDS SUMMARY | 2022-05-15 22:15 | XMS_ITS | Encounter Summary ---
:1955 Author Organization [facility] Address [address] [place] [address] Care Team Providers Name Role Phone Esthela Corea RN Unavailable Unavailable So Dodd MD Unavailable So Dodd MD Primary Care Provider Encounter Details Date Type Department Care Team Description 02/21/2022 [facility] Pos tthrombotic syndrome; [facility] Chronic deep vein thrombosis (DVT) of lower extremity, unspecified laterality, unspecified vein (H); [address] [facility] Anticardiolipin antibody pos itive; [place] [address] senior care current use of ant icoagulants with INR [...] containing 4 or more times a w manzanita 05/25/2021 alcohol? How many drinks containing alcohol [...] or relatives? How often do you attend latter-day or Patient refused 2020 mandaen services? Do you belong to any clubs or Yes 05/25/2021 organizations such as latter-day groups, unions, fraternal or athletic groups, or [...] Comme nts INR POINT OF CARE Routine 02/21/2022 3:31 PM Postthrombo tic syndrome Results for this CDT Chronic deep vein procedure are in thrombosis (DVT) of the resu lts lower extremity, section. unspecified laterality, unspecified vein (H) Anticardiolipin antibody positiv e terminal supervisor current use of anticoagulants with INR goal of 2.0-3.0 documented in this encounter Results (ABNORMAL) INR point of care (02/21/2022 3:31 PM CDT) P athologist Signature INR 2.6 (H) 0.9 - 1.1 02/21/2022 [facility] 3:31 PM CDT Specimen Anatomical Collection Method / Collection Time Recei lindy Time (Source) Location / Volume Laterality Blood STRUCTURE OF Venipuncture / 02/21/2022 3:31 02/21/2022 3:31 FINGER OF RIGHT Unknown PM CDT PM CDT HAND / Unknown Narrative [facility] - 02/21/2022 3:31 PM CDT This test is intended for monitoring Cou madin therapy. Results are not accurate in patients with prolonged INR due to facto r deficiency. Froylan Louise MD LAB - BLOOD ORDERABLES Performing Organization Address City/State/ZIP Code [place] [address] Lab [address] [facility] Lab (no room number, 1st floor of clinic) [place] [address], [facility] [address] [facility] Lab (no room number, 1st floor of clinic) documented in this encounter Visit Diagnoses Diagnosis Postthrombotic syndrome Postphlebetic syndrome without complicat ions Chronic deep vein thrombosis (DVT) of lo wer extremity, unspecified laterality, unspecified vein (H) Anticardiolipin antibody positive Other and unspecified nonspecific immuno logical findings terminal supervisor current use of anticoagulants with INR goal of 2.0-3.0 documented in this encounter Care Teams Lead Java [id number] Developer Relationship Specialty Start Date End Date So Dodd MD PCP - General Family Medicine 02/21/22 [address] [place] [address] Esthela Corea RN Personal Advocate & Liaison Family Medicine 10/16 (PAL) So Dodd MD Assigned PCP 01/05/22 [address] [place] [address] documented as of this encounter
--- OUTSIDE RECORDS SUMMARY | 2022-05-15 22:15 | XMS_ITS | Encounter Summary ---
:1955 Author Organization [facility] Address [address] [place] [address] Care Team Providers Name Role Phone Nahomy, Esthela Conrad RN Unavailable Unavailable So Dodd MD Unavailable So Dodd MD Primary Care Provider Reason for Visit Reason Onset Date Comments Compression socks 05/11/2022 Encounter Details Date Type Department Care Team Description 05/11/2022 [facility] Jayde Dodd MD Compression socks [place] [id number] [place] [address] [place] [address] [phone] Social History Tobacco Use Types Packs/Day Years Used Date Smoking Tobacco: Former Cigarettes 2 25 Quit : 08/04/2006 Smokeless Tobacco: Never Comments: 2004 Alcohol Use Standard Drinks/Week Comments Yes 0 (1 standard drink = 0.6 oz pure alcoho l) 4 BEERS A day Alcohol Habits Answer Date Recorded How often do you have a drink containing 4 or more times a w [place] 05/25/2021 alcohol? How many drinks containing alcohol [...] or relatives? How often do you attend orthodox or Patient refused 2020 jehovah's witness services? Do you belong to any clubs or Yes 05/25/2021 organizations such as orthodox groups, unions, fraternal or athletic groups, [...] place to sleep or slept in a half-way (including now)? Sex Assigned at Date Recorded Not on file COVID-19 Exposure Response Date Recorded In the last 10 days, have you been in contact No / Unsure 05/10/2022 12:29 PM CARGO INSPECTOR with someone who was confirmed or suspected to have Coronavirus/COVID-19? documented as of this encounter Miscellaneous Notes Telephone Encounter - Cheryl Garrett - 05/13/2022 10:41 AM CST Notified patient, waiting on response on where to fax order to Cheryl Garrett/ Grocery Clerk Selling O INSPECTOR Telephone Encounter - So Dodd MD - 05/13/2022 10:29 AM CST PLACED . O INSPECTOR Telephone Encounter - Jackelin Jack - 05/11/2022 3:12 PM CARGO INSPECTOR Reason for Call: Request for an order or referral: Order or referral being requested: Patient is requesting compression socks Date needed: as soon as possible Has the patient been seen by the PCP for this problem? YES Additional comments: Phone number Patient can be reached at: Cell number on file: Telephone Information: Best Time: Anytime Can we leave a detailed message on this number? YES Call taken on 05/11/2022 at 3:12 PM by Jackelin Link O INSPECTOR documented in this encounter Plan of Treatment Upcoming Encounters Date Type Specialty Care Team Description 05/20/2022 Lab Lab documented as of this encounter Visit Diagnoses Diagnosis Bilateral leg edema - Primary Edema documented in this encounter Care Teams Field Administrative Assistant Relationship Specialty Start Date End Date So Dodd MD PCP - General Family Medicine 02/21/22 [address] [place] [address] Esthela Corea RN Personal Advocate & Liaison Family Medicine 10/16 (PAL) So Dodd MD Assigned PCP 01/05/22 [address] [place] [address] documented as of this encounter
--- OUTSIDE RECORDS SUMMARY | 2022-05-15 22:15 | XMS_ITS | Encounter Summary ---
:1955 Author Organization [facility] Address [address] [place] [address] Care Team Providers Name Role Phone Esthela Corea RN Unavailable Unavailable So Dodd MD Unavailable So Dodd MD Primary Care Provider Encounter Details Date Type Department Care Team Description 04/24/2022 Travel Social History Tobacco Use Types Packs/Day Years Used Date Smoking Tobacco: Former Cigarettes 2 25 Quit : 08/04/2006 Smokeless Tobacco: Never Comments: 2004 Alcohol Use Standard Drinks/Week Comments Yes 0 (1 standard drink = 0.6 oz pure alcoho l) 4 BEERS A day Alcohol Habits Answer Date Recorded How often do you have a drink containing 4 or more times a w [place] 05/25/2021 alcohol? How many drinks containing alcohol [...] or relatives? How often do you attend restoration or Patient refused 2020 anabaptism services? Do you belong to any clubs or Yes 05/25/2021 organizations such as restoration groups, unions, fraternal or athletic groups, or [...] on filedocumented in this encounter Care Teams Plastic Printer Relationship Specialty Start Date End Date So Dodd MD PCP - General Family Medicine 02/21/22 [address] [place], [place] [id number] Esthela Corea RN Personal Advocate & Liaison Family Medicine 10/16 (PAL) So Dodd MD Assigned PCP 01/05/22 [address] [place], [place] [id number] documented as of this encounter
--- OUTSIDE RECORDS SUMMARY | 2022-05-15 22:15 | XMS_ITS | Encounter Summary ---
:1955 Author Organization [facility] Address [address] [place] [address] Care Team Providers Name Role Phone Esthela Corea RN Unavailable Unavailable So Dodd MD Unavailable So Dodd MD Primary Care Provider Encounter Details Date Type Department Care Team Description 05/10/2022 Travel Social History Tobacco Use Types Packs/Day Years Used Date Smoking Tobacco: Former Cigarettes 2 25 Quit : 08/04/2006 Smokeless Tobacco: Never Comments: 2004 Alcohol Use Standard Drinks/Week Comments Yes 0 (1 standard drink = 0.6 oz pure alcoho l) 4 BEERS A day Alcohol Habits Answer Date Recorded How often do you have a drink containing 4 or more times a w [place] 05/25/2021 alcohol? How many drinks containing alcohol [...] or relatives? How often do you attend faith or Patient refused 2020 moravian services? Do you belong to any clubs or Yes 05/25/2021 organizations such as faith groups, unions, fraternal or athletic groups, or [...] place to sleep or slept in a nursing home (including now)? Sex Assigned at Date Recorded Not on file COVID-19 Exposure Response Date Recorded In the last 10 days, have you been in contact No / Unsure 05/10/2022 12:29 PM FURNACE REPAIRER HELPER with someone who was confirmed or suspected to have Coronavirus/COVID-19? documented as of this encounter Plan of Treatment Upcoming Encounters Date Type Specialty Care Team Description 05/20/2022 Lab Lab documented as of this encounter Visit Diagnoses Not on filedocumented in this encounter Care Teams Rides Supervisor Relationship Specialty Start Date End Date So Dodd MD PCP - General Family Medicine 02/21/22 [address] [place], [place] [id number] Esthela Corea RN Personal Advocate & Liaison Family Medicine 10/16 (PAL) So Dodd MD Assigned PCP 01/05/22 [address] [address] [place], [place] [id number] documented as of this encounter
--- OUTSIDE RECORDS SUMMARY | 2022-05-15 22:15 | XMS_ITS | Encounter Summary ---
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 How many drinks containing alcohol [...] or relatives? How often do you attend anabaptism or Patient refused 2020 baptism services? Do you belong to any clubs or Yes 05/25/2021 organizations such as anabaptism groups, unions, fraternal or athletic groups, or [...] place to sleep or slept in a skilled nursing (including now)? Sex Assigned at Date Recorded [...] Comme nts INR POINT OF CARE Routine 04/24/2022 2:13 PM Postthrombo tic syndrome Results for this CDT Chronic deep vein procedure are in thrombosis (DVT) of the resu lts lower extremity, section. 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 Results are not accurate in patients with prolonged INR due to facto r deficiency. 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 Chronic deep vein thrombosis (DVT) of lo wer extremity, unspecified laterality, unspecified vein (H) Anticardiolipin antibody positive Other and unspecified nonspecific immuno logical findings 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
--- OUTSIDE RECORDS SUMMARY | 2022-05-15 22:15 | XMS_ITS | Encounter Summary ---
:1955 Author Organization [place] Address [facility] [place] [address] Care Team Providers Name Role Phone Esthela Corea RN Unavailable Unavailable So Dodd MD Unavailable So Dodd MD Primary Care Provider Encounter Details Date Type Department Care Team Description 04/24/2022 Anticoagulation [facility], Chronic deep vein thrombosis (DVT) of lower extremity, unspecified laterality, unspecified vein (H) (Primary Dx); Therapy Visit Anticoagulation Diana Conrad RN prison current use of anticoagulant therapy; Clinic Postthrombotic syndrome; [facility] Anticardiolipin antibody pos itive; [place], [place] prison cu rrent use of anticoagulants with INR [...] containing 4 or more times a w [place] 05/25/2021 alcohol? How many drinks containing alcohol [...] or relatives? How often do you attend islam or Patient refused 2020 adventist services? Do you belong to any clubs or Yes 05/25/2021 organizations such as islam groups, unions, fraternal or athletic groups, or [...] encounter Progress Notes Diana Nielsen RN - 04/24/2022 4:32 PM CDT ANTICOAGULATION MANAGEMENT Virgil Christine 66 year old male is on warfarin with subtherapeutic INR result. (Goal INR 2.0-3.0) Recent labs: (last 7 days) 04/24/22 1413 INR 1.9* ASSESSMENT ??? Source(s): Chart Review ??? Warfarin doses taken: Reviewed in chart ??? Diet: unable to assess ??? New illness, injury, or hospitalization: Yes: Colorectal surgery 04/19/22 - 4-day hold, bridgingwith Lovenox every 24 hours. ??? Medication/supplement changes: None noted ??? Signs or symptoms of bleeding or clotting: No ??? Previous INR: Therapeutic last 2(+) visits ? ? Additional findings: Bridging with Enoxaparin until INR >= 2.0 PLAN Unable to reach Virgil today. Left message to take a booster dose of warfarin, 7.5 mg tonight. Request call back for assessment. Also advised to continue bridging with Lovenox injections. Follow up required to discuss out of range result Diana Nielsen RN Anticoagulation Clinic 04/24/2022 Diana Nielsen RN - 04/24/2022 4:32 PM CDT ANTICOAGULATION MANAGEMENT Virgil Christine 66 year old male is on warfarin with subtherapeutic INR result. (Goal INR 2.0-3.0) Recent labs: (last 7 days) 04/24/22 1413 INR 1.9* ASSESSMENT ??? Source(s): Chart Review and Patient/Caregiver Call ??? Warfarin doses taken: Warfarin taken as instructed ??? Diet: No new diet changes identified ??? New illness, injury, or hospitalization: Yes: Colorectal surgery 04/19/22, advised by surgeon tohold that night. Not satisfied with results of surgery but will follow up with surgeon. ??? Medication/supplement changes: None noted ??? Signs or symptoms of bleeding or clotting: No ??? Previous INR: Therapeutic last 2(+) visits ? ? Additional findings: Bridging with Enoxaparin until INR >= 2.0 PLAN Recommended plan for temporary change(s) affecting INR Dosing Instructions: booster dose then continue your current warfarin dose Continue bridging with Enoxaparin with next INR in 2 days Summary As of 04/24/2022 Full warfarin instructions: 04/24: 7.5 mg; Otherwise 5 mg every Wed; 7.5 mg all other days; Caxducut49/2/2022 Next INR check: 04/26/2022 Telephone call with Virgil who agrees to plan and repeated back plan correctly Lab visit scheduled Education provided: ??? Please call back if any changes to your diet, medications or how you've been taking warfarin ??? Contact [phone] with any changes, questions or concerns. 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 with INR goal of 2.0-3.0 [Z79.01] Comments: Anticoagulation Care Providers Provider Role Specialty Phone number DaniFroylan MD Referring Family Medicine [phone] documented in this encounter Plan of Treatment Upcoming Encounters Date Type Specialty Care Team Description 05/20/2022 Lab Lab documented as of this encounter Visit Diagnoses Diagnosis Chronic deep vein thrombosis (DVT) of lo wer extremity, unspecified laterality, unspecified vein (H) - Primary prison current use of anticoagulant t herapy 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
--- OUTSIDE RECORDS SUMMARY | 2022-05-15 22:16 | XMS_ITS | Encounter Summary ---
:1955 Author Organization [facility] Address [facility] [place] [address] Care Team Providers Name Role Phone Froylan Louise MD Primary Care Provider Unavailable Froylan Louise MD Unavailable Unavailable Esthela Corea RN Unavailable Unavailable Reason for Referral Specialty Diagnoses / Procedures Referred By Contact Refer red To Contact Froylan Louise M D [address] [place] [address] Referral ID Status Reason Start Date Expiration Date Visits Requ ested Visits Authorized Reason for Visit Reason Onset Date Comments Referral 09/25/2021 Anticoag Renewal Encounter Details Date Type Department Care Team Description 09/25/2021 [facility] Froylan Louise Refe rral (Anticoag [facility] [place] Renewal) [address] [place] [address] Social History Tobacco Use Types Packs/Day Years Used Date Smoking Tobacco: Former Cigarettes 2 25 Quit : 08/04/2006 Smokeless Tobacco: Never Comments: 2004 Alcohol Use Standard Drinks/Week Comments Yes 0 (1 standard drink = 0.6 oz pure alcoho l) 4 BEERS A day Alcohol Habits Answer Date Recorded How often do you have a drink containing 4 or more times a w [place] 05/25/2021 alcohol? How many drinks containing alcohol [...] or relatives? How often do you attend yarsanism or Patient refused 2020 hinduism services? Do you belong to any clubs or Yes 05/25/2021 organizations such as yarsanism groups, unions, fraternal or athletic groups, or [...] for the very basics like Not h [place] at all 05/25/2021 food, housing, medical care, [...] place to sleep or slept in a longterm (including now)? Sex Assigned at Date Recorded Not on file documented as of this encounter Miscellaneous Notes Telephone Encounter - Diana Nielsen RN - 09/25/2021 4:51 PM CDT ANTICOAGULATION MANAGEMENT Virgil Christine due for annual renewal of referral to anticoagulation monitoring. Order pended for yourreview and signature. ANTICOAGULATION SUMMARY Warfarin indication(s) DVT Heart valve present? NO Current goal range INR: 2.0-3.0 Goal appropriate for indication? Yes, INR 2-3 appropriate for hx of DVT, PE, hypercoagulable state, Afib, LVAD, or bileaflet AVR without risk factors Current duration of therapy Indefinite/oil heaterman therapy Time in Therapeutic Range (TTR) (Goal > 60%) 66.2% Office visit with referring provider's group within last year yes on 05/25/21 Diana Nielsen RN documented in this encounter Plan of Treatment Upcoming Encounters Date Type Specialty Care Team Description 05/20/2022 Lab Lab Scheduled Orders Name Type Priority Associated Diagnoses Order S chedule INR point of care Lab Routine Postthrombotic syndrome 1-6 weeks for 99 Chronic deep vein thrombosis Occurrences starting (DVT) of lower extremity, until unspecified laterality, 10/2022, 8 completed unspecified vein (H) Anticardiolipin antibody positive [facility] current use of anticoagulants with INR goal of 2.0-3.0 Scheduled Referrals Name Type Priority Associated Diagnoses Order S chedule Anticoagulation Clinic Referral Routine: Next Postthrombotic Or dered: Referral available opening syndrome 09/25/2021 Chronic deep vein thrombosis (DVT) of lower extremity, unspecified laterality, unspecified vein (H) Anticardiolipin antibody positiv e terminal 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 with INR goal of 2.0-3.0 documented as of this encounter Results (ABNORMAL) INR point of care (05/10/2022 12:31 PM SONAR WATCHSTANDER) P athologist Signature INR 4.2 (H) 0.9 - 1.1 05/10/2022 [facility] 12:37 PM SONAR WATCHSTANDER Specimen Anatomical Collection Method Collection Time Receive d Time (Source) Location / / Volume Laterality Blood STRUCTURE OF Capillary / 05/10/2022 12:31 05/10/2022 FINGER OF RIGHT Unknown PM SONAR WATCHSTANDER 12:32 PM SONAR WATCHSTANDER HAND / Unknown Narrative [facility] - 05/10/2022 12:37 PM SONAR WATCHSTANDER This test is intended for monitoring Cou madin therapy. Results are not accurate in patients with prolonged INR due to facto r deficiency. Froylan Loiuse MD LAB - BLOOD ORDERABLES Performing Organization Address City/[facility]/ZIP Code [place] [address] Lab [address] [address] [facility] (no room number, 1st floor of clinic) [place] [address], [phone] [facility] [address] [facility] [place] [facility] (no room number, 1st floor of clinic) (ABNORMAL) INR point of care (04/26/2022 12:20 PM CDT) P athologist Signature INR 2.0 (H) 0.9 - 1.1 04/26/2022 [facility] 12:21 PM CDT Specimen Anatomical Collection Method Collection Time Receive d Time (Source) Location / / Volume Laterality Blood STRUCTURE OF Capillary / 04/26/2022 12:20 04/26/2022 FINGER OF RIGHT Unknown PM CDT 12:20 PM CDT HAND / Unknown Narrative LABORATORY - 04/26/2022 12:21 PM CDT This test is intended for monitoring Cou madin therapy. Results are not accurate in patients with prolonged INR due to facto r deficiency. Froylan Louise MD LAB - BLOOD ORDERABLES Performing Organization Address City/[facility]/ZIP Code [place] [address] Lab [address] [employer] Lab (no room number, 1st floor of clinic) [place] [address], [facility] [address] [facility] (no room number, 1st floor of clinic) (ABNORMAL) INR point of care (04/24/2022 2:13 [...] LAB - BLOOD ORDERABLES Performing Organization Address [facility]/ZIP Code [place] [address] Lab [address] [facility] (no room number, 1st floor of clinic) [place] [address], [facility] [address] [facility] (no room number, 1st floor of clinic) (ABNORMAL) INR point of care (02/27/2022 3:33 PM CDT) P athologist Signature INR 2.6 (H) 0.9 - 1.1 02/27/2022 [facility] 3:36 PM CDT Specimen Anatomical Collection Method Collection Time Receive d Time (Source) Location / / Volume Laterality Blood STRUCTURE OF Capillary / 02/27/2022 3:33 PM 3:33 FINGER OF LEFT Unknown CDT PM CDT HAND / Unknown Narrative LABORATORY - 02/27/2022 3:36 PM CDT This test is intended for monitoring Cou madin therapy. Results are not accurate in patients with prolonged INR due to facto r deficiency. Froylan Louise MD LAB - BLOOD ORDERABLES Performing Organization Address City/[facility]/ZIP Code [place] [address] Lab [address] [facility] Lab (no room number, 1st floor of clinic) [place] [address], [facility] [address] [facility] (no room number, 1st floor of [facility]) (ABNORMAL) INR point of care (02/21/2022 3:31 [...] Address City/State/ZIP Code [place] [address] Lab [address] [facility] (no room number, 1st floor of clinic) [place] [address], [facility] [address] [facility] (no room number, 1st floor of clinic) (ABNORMAL) INR point of care (01/10/2022 1:14 PM CDT) P athologist Signature INR 2.3 (H) 0.9 - 1.1 01/10/2022 LABORATORY 1:17 PM CDT Specimen Anatomical Collection Method / Collection Time Recei lindy Time (Source) Location / Volume Laterality Blood BLOOD SPECIMEN / Venipuncture / 01/10/2022 1:14 2021 1:14 Unknown Unknown PM CDT PM CDT Narrative [facility] - 01/10/2022 1:17 PM CDT This test is intended for monitoring Cou madin therapy. Results are not accurate in patients with prolonged INR due to facto r deficiency. Froylan Louise MD LAB - BLOOD ORDERABLES Performing Organization Address [facility] [place] [address] Lab [address] [facility] (no room number, 1st floor of [facility]) [place] [address], [facility] [address] [facility] (no room number, 1st floor of [facility]) (ABNORMAL) INR point of care (11/30/2021 2:59 PM CDT) P athologist Signature INR 2.8 (H) 0.9 - 1.1 11/30/2021 LABORATORY 3:02 PM CDT Specimen Anatomical Collection Method / Collection Time Recei lindy Time (Source) Location / Volume Laterality Blood BLOOD SPECIMEN / Venipuncture / 11/30/2021 2:59 2021 2:59 Unknown Unknown PM CDT PM CDT Narrative LABORATORY - 11/30/2021 3:02 PM CDT This test is intended for monitoring Cou madin therapy. Results are not accurate in patients with prolonged INR due to facto r deficiency. Froylan Louise MD LAB - BLOOD ORDERABLES Performing Organization Address [facility] [place] [address] Lab [address] [facility] (no room number, 1st floor of [facility]) [place] [address], [phone] [facility] [address] [facility] (no room number, 1st floor of clinic) (ABNORMAL) INR point of care (10/23/2021 3:48 PM CDT) P athologist Signature INR 2.4 (H) 0.9 - 1.1 10/23/2021 LABORATORY 3:49 PM CDT Specimen Anatomical Collection Method Collection Time Receive d Time (Source) Location / / Volume Laterality Blood STRUCTURE OF Capillary / 10/23/2021 3:48 PM 2 3:49 FINGER OF RIGHT Unknown CDT PM CDT HAND / Unknown Narrative [facility] - 10/23/2021 3:49 PM CDT This test is intended for monitoring Cou madin therapy. Results are not accurate in patients with prolonged INR due to facto r deficiency. 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
--- OUTSIDE RECORDS SUMMARY | 2022-05-15 22:16 | XMS_ITS | Encounter Summary ---
:1955 Author Organization [place] Address [address] [place] [address] Care Team Providers Name Role Phone Froylan Louise MD Primary Care Provider Unavailable Froylan Louise MD Unavailable Unavailable Esthela Corea RN Unavailable Unavailable Reason for Visit Reason Comments Medication Refill Encounter Details Date Type Department Care Team Description 08/01/2021 Refill [facility] Froylan Louise Ra, MD Medication Refill [address] [address] Social History Tobacco Use [...] you attend christian or Patient refused 2020 scientology services? 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 documented as of this encounter Plan of Treatment Upcoming Encounters Date Type Specialty Care Team Description 05/20/2022 Lab Lab documented as of this encounter Visit Diagnoses Diagnosis Insomnia, unspecified type documented in this encounter Care Teams Aircraft Manager Relationship Specialty Start Date End Date Froylan Louise MD PCP - General Family Practice 02/22/14 Froylan Louise MD Assigned PCP 03/13/14 2 Esthela Corea, RN Personal Advocate & Liaison Family Medicine 10/16 (PAL) documented as of this encounter
--- OUTSIDE RECORDS SUMMARY | 2022-05-15 22:16 | XMS_ITS | Encounter Summary ---
:1955 Author Organization [facility] Address [address] [place] [address] Care Team Providers Name Role Phone Froylan Louise MD Primary Care Provider Unavailable Froylan Louise MD Unavailable Unavailable Esthela Corea RN Unavailable Unavailable Encounter Details Date Type Department Care Team Description 10/23/2021 Travel Social History Tobacco Use Types Packs/Day Years Used Date Smoking Tobacco: Former Cigarettes 2 25 Quit : 08/04/2006 Smokeless Tobacco: Never Comments: 2004 Alcohol Use Standard Drinks/Week Comments Yes 0 (1 standard drink = 0.6 oz pure alcoho l) 4 BEERS A day Alcohol Habits Answer Date Recorded How often do you have a drink containing 4 or more times a w [place] 05/25/2021 alcohol? How many drinks containing alcohol [...] or relatives? How often do you attend methodist or Patient refused 2020 spiritism services? Do you belong to any clubs or Yes 05/25/2021 organizations such as methodist groups, unions, fraternal or athletic groups, or [...] been in contact with No / Unsure 09/27/2021 12:24 PM CDT someone who was confirmed or suspected to have Coronavirus / COVID-19? documented as of this encounter Plan of Treatment Upcoming Encounters Date Type Specialty Care Team Description 05/20/2022 Lab Lab documented as of this encounter Visit Diagnoses Not on filedocumented in this encounter Care Teams Environmental Protection Officer Relationship Specialty Start Date End Date Froylan Louise MD PCP - General Family Practice 02/22/14 Froylan Louise MD Assigned PCP 03/13/14 2 Esthela Corea, RN Personal Advocate & Liaison Family Medicine 10/16 (PAL) documented as of this encounter
--- OUTSIDE RECORDS SUMMARY | 2022-05-15 22:16 | XMS_ITS | Encounter Summary ---
:1955 Author Organization [place] Address [address] [place] [address] Care Team Providers Name Role Phone Froylan Louise MD Primary Care Provider Unavailable Froylan Louise MD Unavailable Unavailable Esthela Corea RN Unavailable Unavailable Encounter Details Date Type Department Care Team Description 11/30/2021 Travel Social History Tobacco Use Types Packs/Day Years Used Date Smoking Tobacco: Former Cigarettes 2 25 Quit : 08/04/2006 Smokeless Tobacco: Never Comments: 2004 Alcohol Use Standard Drinks/Week Comments Yes 0 (1 standard drink = 0.6 oz pure alcoho l) 4 BEERS A day Alcohol Habits Answer Date Recorded How often do you have a drink containing 4 or more times a w [place] 05/25/2021 alcohol? How many drinks containing alcohol [...] or relatives? How often do you attend gnosticism or Patient refused 2020 worship services? Do you belong to any clubs or Yes 05/25/2021 organizations such as gnosticism groups, unions, fraternal or athletic groups, or [...] in contact with No / Unsu re 11/30/2021 2:58 PM CDT someone who was confirmed or suspected to have Coronavirus/COVID-19? documented as of this encounter Plan of Treatment Upcoming Encounters Date Type Specialty Care Team Description 05/20/2022 Lab Lab documented as of this encounter Visit Diagnoses Not on filedocumented in this encounter Care Teams Research Test Engine Evaluator Relationship Specialty Start Date End Date Froylan Louise MD PCP - General Family Practice 02/22/14 Froylan Louise MD Assigned PCP 03/13/14 2 Esthela Corea, RN Personal Advocate & Liaison Family Medicine 10/16 (PAL) documented as of this encounter
--- OUTSIDE RECORDS SUMMARY | 2022-05-15 22:16 | XMS_ITS | Encounter Summary ---
:1955 Author Organization [place] Address [address] [place] [address] Care Team Providers Name Role Phone Froylan Louise MD Primary Care Provider Unavailable Froylan Louise MD Unavailable Unavailable Esthela Corea RN Unavailable Unavailable Encounter Details Date Type Department Care Team Description 10/23/2021 Lab [facility] Pos tthrombotic syndrome; [facility] Chronic deep vein thrombosis (DVT) of lower extremity, unspecified laterality, unspecified vein (H); [address] [facility] Anticardiolipin antibody pos itive; [place] [address] [facility] current use of ant icoagulants with INR [...] containing 4 or more times a w [place] 05/25/2021 alcohol? How many drinks containing alcohol [...] you attend christian or Patient refused 2020 zoroastrian services? Do you belong to any clubs [...] place to sleep or slept in a long-term (including now)? Sex Assigned at Date Recorded [...] Comme nts INR POINT OF CARE Routine 10/23/2021 3:48 PM Postthrombo tic syndrome Results for this CDT Chronic deep vein procedure are in thrombosis (DVT) of the resu lts lower extremity, section. 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 Results are not accurate in patients with prolonged INR due to facto r deficiency. 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
--- OUTSIDE RECORDS SUMMARY | 2022-05-15 22:16 | XMS_ITS | Encounter Summary ---
:1955 Author Organization [place] Address [facility] [place] [address] Care Team Providers Name Role Phone Froylan Louise MD Primary Care Provider Unavailable Froylan Louise MD Unavailable Unavailable Esthela Corea RN Unavailable Unavailable Encounter Details Date Type Department Care Team Description 11/30/2021 Anticoagulation [facility], Chronic deep vein thrombosis (DVT) of lower extremity, unspecified laterality, unspecified vein (H) (Primary Dx); Therapy Visit Anticoagulation Diana Conrad RN retirement current use of anticoagulant therapy; Clinic Postthrombotic syndrome; [facility] Anticardiolipin antibody pos itive; [place], [place] retirement cu rrent use of anticoagulants with INR [...] containing 4 or more times a w [place] 05/25/2021 alcohol? How many drinks containing alcohol [...] you attend mosque or Patient refused 2020 cheondoism services? Do you belong to any clubs [...] place to sleep or slept in a care home (including now)? Sex Assigned at Date Recorded Not on file COVID-19 Exposure Response Date Recorded In the last 10 days, have you been in contact with No / Unsu re 11/30/2021 2:58 PM CDT someone who was confirmed or suspected to have Coronavirus/COVID-19? documented as of this encounter Progress Notes Diana Nielsen RN - 11/30/2021 5:18 PM CDT ANTICOAGULATION MANAGEMENT Virgil Christine 65 year old male is on warfarin with therapeutic INR result. (Goal INR 2.0-3.0) Recent labs: (last 7 days) 11/30/21 1459 INR 2.8* ASSESSMENT ??? Source(s): Chart Review ??? Previous INR was Therapeutic last 2(+) visits ??? Medication, diet, health changes since last INR chart reviewed; none identified PLAN Recommended plan for no diet, medication or health factor changes affecting INR Dosing Instructions: continue your current warfarin dose with next INR in 6 weeks Summary As of 11/30/2021 Full warfarin instructions: 5 mg every Wed; 7.5 mg all other days Next INR check: 01/11/2022 Detailed voice message left for Virgil with dosing instructions and follow up date. Contact [phone] to schedule and with any changes, questions or concerns. Education provided: Please call back if any changes to your diet, medications or how you've been taking warfarin and Contact [phone] with any changes, questions or concerns. Plan made per [facility] anticoagulation protocol Diana Nielsen RN Anticoagulation Clinic 11/30/2021 Anticoagulation Episode Summary Current INR goal: 2.0-3.0 TTR: 76.6 % (11.9 mo) Target end date: Indefinite Send INR reminders to: [facility] Indications Chronic deep vein thrombosis (DVT) of lower extremity unspecified laterality unspecified vein (H) [I82.509] Long-term (current) use of anticoagulants [Z79.01] [Z79.01] 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] medical terminologist current use of anticoagulants with INR goal of 2.0-3.0 [Z79.01] Comments: Anticoagulation Care Providers Provider Role Specialty Phone number Froylan Louise MD Referring Family Medicine [phone] documented in this encounter Plan of Treatment Upcoming Encounters Date Type Specialty Care Team Description 05/20/2022 Lab Lab documented as of this encounter Visit Diagnoses Diagnosis Chronic deep vein thrombosis (DVT) of lo wer extremity, unspecified laterality, unspecified vein (H) - Primary medical terminologist current use of anticoagulant t herapy 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
--- OUTSIDE RECORDS SUMMARY | 2022-05-15 22:16 | XMS_ITS | Encounter Summary ---
:1955 Author Organization [place] Address [address] [place] [id number] Care Team Providers Name Role Phone Froylan Louise MD Primary Care Provider Unavailable Froylan Louise MD Unavailable Unavailable Esthela Corea RN Unavailable Unavailable Encounter Details Date Type Department Care Team Description 11/30/2021 Lab [facility] Pos tthrombotic syndrome; [facility] Chronic deep vein thrombosis (DVT) of lower extremity, unspecified laterality, unspecified vein (H); [id number] [facility] Anticardiolipin antibody pos itive; [place] [address] alf current use of ant icoagulants with INR [...] containing 4 or more times a w [place] 05/25/2021 alcohol? How many drinks containing alcohol [...] you attend islam or Patient refused 2020 congregational services? Do you belong to any clubs [...] Comme nts INR POINT OF CARE Routine 11/30/2021 2:59 PM Postthrombo tic syndrome Results for this CDT Chronic deep vein procedure are in thrombosis (DVT) of the resu lts lower extremity, section. 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 Results are not accurate in patients with prolonged INR due to facto r deficiency. 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
--- OUTSIDE RECORDS SUMMARY | 2022-05-15 22:16 | XMS_ITS | Encounter Summary ---
:1955 Author Organization [place] Address [address] [place] [address] Care Team Providers Name Role Phone Esthela Corea RN Unavailable Unavailable So Dodd MD Primary Care Provider So Dodd MD Unavailable Encounter Details Date Type Department Care Team Description 01/10/2022 [facility] Pos tthrombotic syndrome; [facility] Chronic deep vein thrombosis (DVT) of lower extremity, unspecified laterality, unspecified vein (H); [id number] [facility] Anticardiolipin antibody pos itive; [place] [address] residential current use of ant icoagulants with INR [...] containing 4 or more times a w [place] 05/25/2021 alcohol? How many drinks containing alcohol [...] or relatives? How often do you attend advent or Patient refused 2020 jainism services? Do you belong to any clubs or Yes 05/25/2021 organizations such as advent groups, unions, fraternal or athletic groups, or [...] in contact with No / Unsu re 01/10/2022 1:13 PM CDT someone who was confirmed or suspected to have Coronavirus/COVID-19? documented as of this encounter Plan of Treatment Upcoming Encounters Date Type Specialty Care Team Description 05/20/2022 Lab Lab documented as of this encounter Procedures Procedure Name Priority Date/Time Associated Diagnosis Comme nts INR POINT OF CARE Routine 01/10/2022 1:14 PM Postthrombo tic syndrome Results for this CDT Chronic deep vein procedure are in thrombosis (DVT) of the resu lts lower extremity, section. 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 with INR goal of 2.0-3.0 documented in this encounter Results (ABNORMAL) INR point of care (01/10/2022 1:14 PM CDT) P athologist Signature INR 2.3 (H) 0.9 - 1.1 01/10/2022 [facility] 1:17 PM CDT Specimen Anatomical Collection [...] Address City/State/ZIP Code [place] [address] Lab [address] [facility] (no room number, 1st floor of clinic) [place] [address], [facility] [address] [facility] (no room number, 1st floor [...] 2.0-3.0 documented in this encounter Care Teams Ceramic Engineering Professor Relationship Specialty Start Date End Date So Dodd MD PCP - General Family Medicine 01/10/22 01/17/22 [address] [place] [address] Esthela Corea, CINDY Personal Advocate & Liaison Family Medicine 10/16 (PAL) So Dodd MD Assigned PCP 01/05/22 [address] [place] [address] documented as of this encounter
--- OUTSIDE RECORDS SUMMARY | 2022-05-15 22:16 | XMS_ITS | Encounter Summary ---
:1955 Author Organization [place] Address Replaced by [facility] [place] [address] Care Team Providers Name Role Phone Froylan Louise MD Primary Care Provider Unavailable Froylan Louise MD Unavailable Unavailable Esthela Corea RN Unavailable Unavailable Reason for Referral Diagnostic Imaging XR (Routine) - Pending Review Specialty Diagnoses / Procedures Referred By Contact Refer red To Contact Diagnoses Leg injury, left, initial encounter Shani Chase NP Procedures XR Tibia & Fibula Left [address] [place] [address] Referral ID Status Reason Start Date Expiration Date Visits V isits Requested Authorized [id number] Pending 09/27/2021 09/27/2022 1 1 Review Reason for Visit Reason Comments Musculoskeletal Problem left zacarias, fell on stairs , 1 week Dental Pain back tooth , infection Encounter Details Date Type Department Care Team Description 09/27/2021 Office Visit [facility] Shani Chase Leg inj ury, left, initial encounter (Primary Dx); Urgent Care Valentina Conrad NP Dental infection; [id number] [address] Cellulitis of left lower extremity; [place], [place] Hematoma of l eft lower leg [phone] Social History Tobacco Use Types Packs/Day Years Used Date Smoking Tobacco: Former Cigarettes 2 25 Quit : 08/04/2006 Smokeless Tobacco: Never Comments: 2004 Alcohol Use Standard Drinks/Week Comments Yes 0 (1 standard drink = 0.6 oz pure alcoho l) 4 BEERS A day Alcohol Habits Answer Date Recorded How often do you have a drink containing 4 or more times a w [place] 05/25/2021 alcohol? How many drinks containing alcohol [...] you attend rastafarian or Patient refused 2020 yazidism services? Do [...] / COVID-19? documented as of this encounter Last Filed Vital Signs Vital Sign Reading Time Taken Comments Blood Pressure 130/70 09/27/2021 12:32 PM CDT Pulse 90 09/27/2021 12:32 PM CDT Temperature 36.9 ??C (98.4 ??F) 09/27/2021 12:32 PM CDT Respiratory Rate - - Oxygen Saturation 99% 09/27/2021 12:32 PM CDT Inhaled Oxygen Concentration - - Weight 109.8 kg (242 lb) 09/27/2021 12:32 PM CDT Height - - Body Mass Index 32.82 05/25/2021 3:14 PM TRAFFIC CHECKER documented in this encounter Patient Instructions Patient InstructionsMuShani ramirez NP - 09/27/2021 12:25 PM CDT Images from the original note were not included. Patient Education Hematoma A hematoma is a collection of blood trapped outside of a blood vessel. It is what we think of as a bruise or a contusion. It is usually seen under the skin as a black and blue spot on your arm or leg, or a bump on your head after an injury. It can be almost anywhere on or in your body. It can also occur in an internal organ where it can be more serious. A hematoma is caused by an injury with damage to small blood vessels. This causes blood to leak intothe tissues. Blood forms a pocket under the skin that swells and looks like a purplish patch. Hematomas sometimes form under the skin from bleeding during childbirth and can be particularly serious. Another serious form of hematoma forms after a fall on the head, called a subdural hematoma. Gradually the blood in the hematoma is absorbed back into the body. The swelling and pain of the hematoma will go away. This takes from??1 to??4 weeks, depending on the size of the hematoma. The skin over the hematoma may turn bluish then brown and yellow as the blood is dissolved and absorbed. Usually, this only takes a couple of weeks but can last months. Home care ?? Limit motion of the joints near the hematoma. If the hematoma is large and painful, avoid sports and other vigorous physical activity until the swelling and pain goes away. ?? Apply an ice pack (ice cubes in a plastic bag, or a frozen bag of peas, wrapped in a thin towel) over the injured area for 20 minutes every 1 to 2 hours the first day. Continue with ice packs 3 to 4times a day for the next??2 days. Continue the use of ice packs for relief of pain and swelling as needed. ?? If you need anything for pain, you can take acetaminophen, unless you were given a different painmedicine to use.??Talk with your healthcare provider before using this medicine if you have chronic liver or kidney disease. Also talk with your healthcare provider if you have??had a stomach ulcer or?? digestive tract??bleeding, or are taking blood-thinner medicines. Follow-up care Follow up with your??healthcare provider,??or as advised.??If X-rays or a CT scan were done, you will be notified if there is a change in the reading, especially if it affects treatment. When to seek medical advice Call your healthcare provider right away if any of the following occur: ?? Redness around the hematoma ?? Increase in pain or warmth in the hematoma ?? Increase in size of the hematoma ?? Fever of 100.4??F (38??C) or higher, or as directed by your healthcare provider ?? If the hematoma is on the arm or leg, watch for: ? Increased swelling or pain in the extremity ? Numbness or tingling or blue color of the hand or foot [place] last reviewed this educational content on 09/21/2017 ?? [id number] [employer]. All rights reserved. This information is not intended as a substitute for professional medical care. Always follow your healthcare professional's instructions. documented in this encounter Progress Notes Shani Chase NP - 09/27/2021 12:25 PM CDT Images from the original note were not included. Chief Complaint Patient presents with ??? Musculoskeletal Problem left zacarias, fell on stairs , 1 week ??? Dental Pain back tooth , infection SUBJECTIVE: Virgil Christine is a 65 year old male who presents to the clinic today with a left leg injury and toothinfection. He fell going up his carpeted stairs a week ago. Hit hit zacarias on the stair and developed a large purple hematoma, redness, warmth, swelling, aching pain throughout. He also has a left upper molar dental infection. The tooth has been giving him trouble for a while with decay, pus, cracking, generalized malaise. He is on warfarin, last INR was 2.4 on 09/12. He denies fevers, nausea, vomiting, breaking open the skin. [place] PDMP checked and last opioid was Hydrocodone-Acetamin 5-325 Mg#25. He is requesting something for the pain today as he can hardly sleep. [facility] for knee infection, ulcer last year needing wound vac and IV antibiotics. Past Medical History: Diagnosis Date ??? Antiplatelet [...] Unspecified hemorrhoids without mention of complication Hemorrhoids Acetaminophen (TYLENOL 8 HOUR PO), Take 1,000 mg by mouth 2 times daily (2 X 500 mg) albuterol (PROAIR HFA/PROVENTIL HFA/VENTOLIN HFA) 108 (90 Base) MCG/ACT inhaler, INHALE 2 PUFFS BY MOUTH EVERY 6 HOURS NEEDED FOR WHEEZE OR FOR SHORTNESS OF BREATH fish oil-omega-3 fatty acids 1000 MG capsule, Take 2 g by mouth every morning Jloqekzurlh-Lshbymuff-Dtypwrxqsj (TRELEGY ELLIPTA) 100-62.5-25 MCG/INH oral inhaler, INHALE 1 PUFF BY MOUTH EVERY DAY lisinopril-hydrochlorothiazide (ZESTORETIC) 20-25 MG tablet, Take 1 tablet by mouth daily loperamide (IMODIUM) 2 MG capsule, TAKE 3-4 CAPSULES (6-8 MG) BY MOUTH 3 TIMES DAILY NEEDED FOR DIARRHEA multivitamin w/minerals (THERA-VIT-M) tablet, Take 1 tablet by mouth daily terazosin (HYTRIN) 5 MG capsule, Take 1 capsule (5 mg) by mouth At Bedtime triamcinolone (KENALOG) 0.1 % external cream, APPLY TO AFFECTED AREA TWICE A DAY vitamin D3 (CHOLECALCIFEROL) 250 mcg (10921 units) capsule, Take 1 capsule by mouth every morning Vitamin Mixture (EMILY-C PO), Take 2 capsules by mouth 2 times daily warfarin ANTICOAGULANT (COUMADIN) 5 MG tablet, Take 1 tablet (5 mg) every Friday warfarin ANTICOAGULANT (COUMADIN) 7.5 MG tablet, TAKE 5MG TABLET ON EVERY FRI AND 7.5MG TABLET ON ALL OTHER DAYS OF THE WEEK. zolpidem ER (AMBIEN CR) 12.5 MG CR tablet, TAKE 1 TABLET BY MOUTH AT BEDTIME NEEDED FOR SLEEP No current facility-administered medications on file prior to visit. Social History Tobacco Use ??? Smoking status: Former Smoker Packs/day: 2.00 Years: 25.00 Pack years: 50.00 Types: Cigarettes Quit date: 08/04/2006 Years since quittin.1 ??? Smokeless tobacco: Never Used ??? Tobacco comment: 2005 Substance Use Topics ??? Alcohol use: Yes Comment: 4 BEERS A day Allergies Allergen Reactions ??? Keflex [Cephalexin] Nausea Review of Systems All systems negative except for those listed above in HPI. EXAM: BP 130/70 (BP Location: Right arm, Patient Position: Sitting, Cuff Size: Adult Regular) Pulse 90 Temp 98.4 ??F (36.9 ??C) (Oral) Wt 109.8 kg (242 lb) SpO2 99% BMI 32.82 kg/m?? Physical Exam Vitals reviewed. Constitutional: General: He is not in acute distress. Appearance: Normal appearance. He is not ill-appearing, toxic-appearing or diaphoretic. HENT: Head: Normocephalic and atraumatic. Nose: Nose normal. Mouth/Throat: Mouth: Mucous membranes are moist. Pharynx: Oropharynx is clear. Comments: Left upper back molar decaying and cracking with gum tissue erythematous. Eyes: Extraocular Movements: Extraocular movements intact. Conjunctiva/sclera: Conjunctivae normal. Pupils: Pupils are equal, round, and reactive to light. Cardiovascular: Rate and Rhythm: Normal rate. Pulmonary: Effort: Pulmonary effort is normal. Musculoskeletal: General: Swelling, tenderness and signs of injury present. Normal range of motion. Cervical back: Normal range of motion and neck supple. Lymphadenopathy: Cervical: No cervical adenopathy. Skin: General: Skin is warm and dry. Findings: Bruising and erythema present. No lesion or rash. Comments: Left lower leg with moderate edema, warmth, erythema, purple bruising, tenderness throughout. Neurological: General: No focal deficit present. Mental Status: He is alert and oriented to person, place, and time. Psychiatric: Mood and Affect: Mood normal. Behavior: Behavior normal. Xray done in clinic read by me as negative for fracture. Results for orders placed or performed in visit on 09/27/21 XR Tibia & Fibula Left 2 Views Status: None Narrative TIBIA AND FIBULA LEFT TWO VIEWS 09/27/2021 1:09 PM HISTORY: Fell going up stairs one week ago, severe hematoma, redness, swelling. Leg injury, left, initial encounter. COMPARISON: None. Impression IMPRESSION: Soft tissue swelling. No cortical destruction or periostitis to suggest osteomyelitis. No fracture or osseous lesion. Otherwise negative. PREM DECKER MD SYSTEM ID: [id number] Results for orders placed or performed in visit on 09/27/21 CBC with platelets and differential Status: Abnormal Result Value Ref Range WBC Count 7.8 4.0 - 11.0 10e3/uL RBC Count 4.31 (L) 4.40 - 5.90 10e6/uL Hemoglobin 12.8 (L) 13.3 - 17.7 g/dL Hematocrit 40.0 40.0 - 53.0 % MCV 93 78 - 100 fL MCH 29.7 26.5 - 33.0 pg MCHC 32.0 31.5 - 36.5 g/dL RDW 15.3 (H) 10.0 - 15.0 % Platelet Count 214 150 - 450 10e3/uL % Neutrophils 75 % % Lymphocytes 16 % % Monocytes 7 % % Eosinophils 2 % % Basophils 0 % Absolute Neutrophils 5.8 1.6 - 8.3 10e3/uL Absolute Lymphocytes 1.3 0.8 - 5.3 10e3/uL Absolute Monocytes 0.6 0.0 - 1.3 10e3/uL Absolute Eosinophils 0.1 0.0 - 0.7 10e3/uL Absolute Basophils 0.0 0.0 - 0.2 10e3/uL CBC with platelets and differential Status: Abnormal Narrative The following orders were created for panel order CBC with platelets and differential. Procedure Abnormality Status --------- ------ CBC with platelets and d...[[id number]] Abnormal Final result Please view results for these tests on the individual orders. ASSESSMENT: ICD-10-CM 1. Leg injury, left, initial encounter S89.92XA XR Tibia & Fibula Left 2 Views 2. Dental infection K04.7 CBC with platelets and differential CBC with platelets and differential amoxicillin-clavulanate (AUGMENTIN) 875-125 MG tablet HYDROcodone-acetaminophen (NORCO) 5-325 MG tablet 3. Cellulitis of left lower extremity L03.116 amoxicillin-clavulanate (AUGMENTIN) 875-125 MG tablet 4. Hematoma of left lower leg S80.12XA HYDROcodone-acetaminophen (NORCO) 5-325 MG tablet PLAN: XR negative for fracture Hematoma of left lower leg, likely worse due to warfarin Rest, ice, compression, elevate Tylenol, and norco per request at bedtime, use caution due to sedation Augmentin watchful waiting for cellulitis - okay to start if worsening redness, warmth, swelling, feverish feeling, nausea Dental decay, see dentist for xray and exam CBC normal without elevated neutrophils indicating overwhelming bacterial infection Augmentin would also cover for dental infection Follow-up with primary care provider if lingering or ER if severe worsening symptoms Patient Instructions Patient Education Hematoma A hematoma is a collection of blood trapped outside of a blood vessel. It is what we think of as a bruise or a contusion. It is usually seen under the skin as a black and blue spot on your arm or leg, or a bump on your head after an injury. It can be almost anywhere on or in your body. It can also occur in an internal organ where it can be more serious. A hematoma is caused by an injury with damage to small blood vessels. This causes blood to leak intothe tissues. Blood forms a pocket under the skin that swells and looks like a purplish patch. Hematomas sometimes form under the skin from bleeding during childbirth and can be particularly serious. Another serious form of hematoma forms after a fall on the head, called a subdural hematoma. Gradually the blood in the hematoma is absorbed back into the body. The swelling and pain of the hematoma will go away. This takes from??1 to??4 weeks, depending on the size of the hematoma. The skin over the hematoma may turn bluish then brown and yellow as the blood is dissolved and absorbed. Usually, this only takes a couple of weeks but can last months. Home care ?? Limit motion of the joints near the hematoma. If the hematoma is large and painful, avoid sports and other vigorous physical activity until the swelling and pain goes away. ?? Apply an ice pack (ice cubes in a plastic bag, or a frozen bag of peas, wrapped in a thin towel) over the injured area for 20 minutes every 1 to 2 hours the first day. Continue with ice packs 3 to 4times a day for the next??2 days. Continue the use of ice packs for relief of pain and swelling as needed. ?? If you need anything for pain, you can take acetaminophen, unless you were given a different painmedicine to use.??Talk with your healthcare provider before using this medicine if you have chronic liver or kidney disease. Also talk with your healthcare provider if you have??had a stomach ulcer or?? digestive tract??bleeding, or are taking blood-thinner medicines. Follow-up care Follow up with your??healthcare provider,??or as advised.??If X-rays or a CT scan were done, you will be notified if there is a change in the reading, especially if it affects treatment. When to seek medical advice Call your healthcare provider right away if any of the following occur: ?? Redness around the hematoma ?? Increase in pain or warmth in the hematoma ?? Increase in size of the hematoma ?? Fever of 100.4??F (38??C) or higher, or as directed by your healthcare provider ?? If the hematoma is on the arm or leg, watch for: ? Increased swelling or pain in the extremity ? Numbness or tingling or blue color of the hand or foot [place] last reviewed this educational content on 09/21/2017 ?? [id number] [employer] All rights reserved. This information is not intended as a substitute for professional medical care. Always follow your healthcare professional's instructions. Follow up with primary care provider with any problems, questions or concerns or if symptoms worsen or fail to improve. Patient agreed to plan and verbalized understanding. RONI Palmer [facility] documented in this encounter Plan of Treatment Upcoming Encounters Date Type Specialty Care Team Description 05/20/2022 Lab Lab documented as of this encounter Procedures Procedure Name Priority Date/Time Associated Comments Diagnosis CBC WITH PLATELETS Routine 09/27/2021 12:49 Dental infection R esults for this AND DIFFERENTIAL PM CDT procedure a re in the results section. CBC WITH PLATELETS & Routine 09/27/2021 12:49 Dental infection Results for this DIFFERENTIAL PM CDT procedure are i n the results section. documented in this encounter Results XR Tibia & Fibula Left 2 Views (09/27/2021 1:09 PM CDT) Anatomical Region Laterality Modality Leg, Knee, Ankle Left Computed Radiography Specimen (Source) Anatomical Location Collection Method / Collectio n Time Received Time / Laterality Volume Impressions 09/27/2021 2:10 PM CDT IMPRESSION: Soft tissue swelling. No cortical destruction or periostitis to suggest osteomyelitis. No fracture or osseous lesion. Otherwise negative. PREM DECKER MD SYSTEM ID: ??[id number] Narrative 09/27/2021 2:10 PM CDT TIBIA AND FIBULA LEFT TWO VIEWS ?09/27/2021 1:09 PM HISTORY: Fell going up stairs one week a go, severe hematoma, redness, swelling. Leg injury, left, initial enco unter. COMPARISON: None. Procedure Note Prem Decker MD - 09/27/2021Form atting of this note might be different from the original. TIBIA AND FIBULA LEFT TWO VIEWS 09/27/2021 1:09 PM HISTORY: Fell going up stairs one week a go, severe hematoma, redness, swelling. Leg injury, left, initial enco unter. COMPARISON: None. IMPRESSION: Soft tissue swelling. No cor tical destruction or periostitis to suggest osteomyelitis. No fracture or osseous lesion. Otherwise negative. PREM DECKER MD SYSTEM ID: [id number] Shani Chase DRAFTER PLUMBING IMG DIAGNOSTIC IMAGING ORDER SADIQ (ABNORMAL) CBC with platelets and differential (09/27/2021 12:49 PM CDT) [facility] Time Signature WBC Count 7.8 4.0 - 09/27/2021 [facility] 11.0 12:55 PM CDT 10e3/uL RBC Count 4.31 (L) 4.40 - 09/27/2021 [facility] 5.90 12:55 PM CDT 10e6/uL Hemoglobin 12.8 (L) 13.3 - 09/27/2021 [facility] 17.7 g/dL 12:55 PM CDT Hematocrit 40.0 40.0 - 09/27/2021 [facility] 53.0 % 12:55 PM CDT MCV 93 78 - 100 09/27/2021 [facility] fL 12:55 PM CDT MCH 29.7 26.5 - 09/27/2021 [facility] 33.0 pg 12:55 PM CDT MCHC 32.0 31.5 - 09/27/2021 [facility] 36.5 g/dL 12:55 PM CDT RDW 15.3 (H) 10.0 - 09/27/2021 [facility] 15.0 % 12:55 PM CDT Platelet Count 214 150 - 450 09/27/2021 [facility] 10e3/uL 12:55 PM CDT % Neutrophils 75 % 09/27/2021 [facility] 12:55 PM CDT % Lymphocytes 16 % 09/27/2021 [facility] 12:55 PM CDT % Monocytes 7 % 09/27/2021 [facility] 12:55 PM CDT % Eosinophils 2 % 09/27/2021 [facility] 12:55 PM CDT % Basophils 0 % 09/27/2021 [facility] 12:55 PM CDT Absolute 5.8 1.6 - 8.3 09/27/2021 [facility] Neutrophils 10e3/uL 12:55 PM CDT Absolute 1.3 0.8 - 5.3 09/27/2021 [facility] Lymphocytes 10e3/uL 12:55 PM CDT Absolute 0.6 0.0 - 1.3 09/27/2021 [facility] Monocytes 10e3/uL 12:55 PM CDT Absolute 0.1 0.0 - 0.7 09/27/2021 [facility] Eosinophils 10e3/uL 12:55 PM CDT Absolute 0.0 0.0 - 0.2 09/27/2021 [facility]ORY Basophils 10e3/uL 12:55 PM CDT Specimen Anatomical Collection Method / Collection Time Recei lindy Time (Source) Location / Volume Laterality Blood BLOOD SPECIMEN / Venipuncture / 09/27/2021 12:49 09/27 Unknown Unknown PM CDT 12:52 PM CDT Shani Chase NP LAB - BLOOD ORDERABLES Performing Organization Address City/State/ZIP Code [place] [address] Lab [address] [facility] (no room number, 1st floor of clinic) [place] [address], [facility] [address] [facility] Lab (no room number, 1st floor of clinic) documented in this encounter Visit Diagnoses Diagnosis Leg injury, left, initial encounter - Pr imary Dental infection Acute apical periodontitis of pulpal [place] gin Cellulitis of left lower extremity Cellulitis and abscess of leg, except fo ot Hematoma of left lower leg Leg injury, left, initial encounter documented in this encounter Care Teams Chip Silo Tender Relationship Specialty Start Date End Date Froylan Louise MD PCP - General Family Practice 02/22/14 Froylan Louise MD Assigned PCP 03/13/14 2 Esthela Corea, RN Personal Advocate & Liaison Family Medicine 10/16 (PAL) documented as of this encounter
--- OUTSIDE RECORDS SUMMARY | 2022-05-15 22:16 | XMS_ITS | Encounter Summary ---
:1955 Author Organization [place] Address [address] [place] [address] Care Team Providers Name Role Phone Esthela Corea RN Unavailable Unavailable So Dodd MD Primary Care Provider So Dodd MD Unavailable Encounter Details Date Type Department Care Team Description 01/10/2022 Travel Social History Tobacco Use Types Packs/Day Years Used Date Smoking Tobacco: Former Cigarettes 2 25 Quit : 08/04/2006 Smokeless Tobacco: Never Comments: 2004 Alcohol Use Standard Drinks/Week Comments Yes 0 (1 standard drink = 0.6 oz pure alcoho l) 4 BEERS A day Alcohol Habits Answer Date Recorded How often do you have a drink containing 4 or more times a w [place] 05/25/2021 alcohol? How many drinks containing alcohol [...] you attend nondenominational or Patient refused 2020 scientologist services? Do you belong to any clubs [...] on filedocumented in this encounter Care Teams Fabrication Mig Welder Relationship Specialty Start Date End Date So Dodd MD PCP - General Family Medicine 01/10/22 01/17/22 [address] [place] [address] Esthela Corea RN Personal Advocate & Liaison Family Medicine 10/16 (PAL) So Dodd MD Assigned PCP 01/05/22 [address] [place], [place] [id number] documented as of this encounter
--- OUTSIDE RECORDS SUMMARY | 2022-05-15 22:16 | XMS_ITS | Encounter Summary ---
:1955 Author Organization [place] Address [address] [place] [address] Care Team Providers Name Role Phone Froylan Louise MD Primary Care Provider Unavailable Froylan Luoise MD Unavailable Unavailable Esthela Corea RN Unavailable Unavailable Encounter Details Date Type Department Care Team Description 09/27/2021 Travel Social History Tobacco Use Types Packs/Day Years Used Date Smoking Tobacco: Former Cigarettes 2 25 Quit : 08/04/2006 Smokeless Tobacco: Never Comments: 2004 Alcohol Use Standard Drinks/Week Comments Yes 0 (1 standard drink = 0.6 oz pure alcoho l) 4 BEERS A day Alcohol Habits Answer Date Recorded How often do you have a drink containing 4 or more times a w [place] 05/25/2021 alcohol? How many drinks containing alcohol [...] or relatives? How often do you attend catholic or Patient refused 2020 baptism services? Do you belong to any clubs or Yes 05/25/2021 organizations such as catholic groups, unions, fraternal or athletic groups, [...] place to sleep or slept in a snf (including now)? Sex Assigned at Date Recorded [...] on filedocumented in this encounter Care Teams Marketing Budget Analyst Relationship Specialty Start Date End Date Froylan Louise MD PCP - General Family Practice 02/22/14 Froylan Louise MD Assigned PCP 03/13/14 2 Esthela Corea, RN Personal Advocate & Liaison Family Medicine 10/16 (PAL) documented as of this encounter
--- OUTSIDE RECORDS SUMMARY | 2022-05-15 22:16 | XMS_ITS | Encounter Summary ---
:1955 Author Organization [place] Address [address] [place] [address] Care Team Providers Name Role Phone Froylan Louise MD Primary Care Provider Unavailable Froylan Louise MD Unavailable Unavailable Esthela Corea RN Unavailable Unavailable Reason for Visit Reason Comments Medication Refill Encounter Details Date Type Department Care Team Description 12/18/2021 Refill [facility] Froylan Louise Ra, MD Medication Refill [address] [address] Social History Tobacco Use [...] containing 4 or more times a w [place] 05/25/2021 alcohol? How many drinks containing alcohol [...] you attend anabaptism or Patient refused 2020 methodist services? Do [...] this encounter Miscellaneous Notes Telephone Encounter - Lorena Carrera RN - 12/19/2021 2:12 PM CDT Routing refill request to provider for review/approval because: Drug not on the [facility] refill protocol A break in medication Lorena Shields RN documented in this encounter Plan of Treatment Upcoming Encounters Date Type Specialty Care Team Description 05/20/2022 Lab Lab documented as of this encounter Visit Diagnoses Diagnosis Insomnia, unspecified type documented in this encounter Care Teams Road Roller Operator Relationship Specialty Start Date End Date Froylan Louise MD PCP - General Family Practice 02/22/14 Froylan Louise MD Assigned PCP 03/13/14 2 Esthela Corea RN Personal Advocate & Liaison Family Medicine 10/16 (PAL) documented as of this encounter
--- OUTSIDE RECORDS SUMMARY | 2022-05-15 22:16 | XMS_ITS | Encounter Summary ---
:1955 Author Organization [place] Address [facility] [place] [address] Care Team Providers Name Role Phone Froylan Louise MD Primary Care Provider Unavailable Froylan Louise MD Unavailable Unavailable Esthela Corea RN Unavailable Unavailable Reason for Visit Diagnostic Imaging XR (Routine) - Pending Review Specialty Diagnoses / Procedures Referred By Contact Refer red To Contact Diagnoses Neck pain Froylan Louise MD Procedures XR Cervical Spine 2/[id number] [place] [id number] Referral ID Status Reason Start Date Expiration Date Visits V isits Requested Authorized [id number] Pending 11/30/2021 11/30/2022 1 1 Review Encounter Details Date Type Department Care Team Description 11/30/2021 Ancillary Procedure [facility] Froylan Louise Ra, [facility] [address] [place] [address] Social History Tobacco Use Types [...] containing 4 or more times a w [place] 05/25/2021 alcohol? How many drinks containing alcohol [...] or relatives? How often do you attend mu-ism or Patient refused 2020 druze services? Do you belong to any clubs or Yes 05/25/2021 organizations such as mu-ism groups, unions, fraternal or athletic groups, or [...] Priority Date/Time Associated Diagnosis Comme nts XR CERVICAL SPINE Routine 11/30/2021 3:49 PM Neck pain Resu lts for this 2/3 VIEWS CDT procedure are i n the results section. documented in this encounter Results XR Cervical Spine 2/3 Views (11/30/2021 3:49 PM CDT) Anatomical Region Laterality Modality Spine Computed Radiography Specimen (Source) Anatomical Location Collection Method / Collectio n Time Received Time / Laterality Volume Narrative 11/30/2021 7:50 PM CDT XR CERVICAL SPINE 2/3 VWS 11/30/2021 3:49 PM COMPARISON: None HISTORY: Chronic neck pain. FINDINGS: Normal vertebral body heights. Straightened lordosis. Normal coronal alignment. Moderate C4-5 and C5- 6 interbody degeneration. Mild mid cervical facet arthropathy. Normal o pen mouth view. MIKE LARA MD SYSTEM ID: ??[id number] Procedure Note Mike Lara MD - 11/30/2021Format ting of this note might be different from the original. XR CERVICAL SPINE 2/3 VWS 11/30/2021 3:49 PM COMPARISON: None HISTORY: Chronic neck pain. FINDINGS: Normal vertebral body heights. Straightened lordosis. Normal coronal alignment. Moderate C4-5 and C5- 6 interbody degeneration. Mild mid cervical facet arthropathy. Normal o pen mouth view. MIKE LARA MD SYSTEM ID: [id number] Froylan Louise MD IMG DIAGNOSTIC IMAGING ORDER SADIQ documented in this encounter Visit Diagnoses Not on filedocumented in this encounter Care Teams Quality System Manager Relationship Specialty Start Date End Date Froylan Louise MD PCP - General Family Practice 02/22/14 Froylan Louise MD Assigned PCP 03/13/14 2 Esthela Corea RN Personal Advocate & Liaison Family Medicine 10/16 (PAL) documented as of this encounter
--- OUTSIDE RECORDS SUMMARY | 2022-05-15 22:16 | XMS_ITS | Encounter Summary ---
:1955 Author Organization [place] Address [facility] [place] [address] Care Team Providers Name Role Phone Dhruv Louise MD Primary Care Provider Unavailable Dhruv Louise MD Unavailable Unavailable Esthela Corea RN Unavailable Unavailable Reason for Referral Diagnostic Imaging XR (Routine) - Pending Review Specialty Diagnoses / Procedures Referred By Contact Refer red To Contact Diagnoses Neck pain Dhruv Louise MD Procedures XR Cervical Spine 2/3 Views [address] [place] [address] Referral ID Status Reason Start Date Expiration Date Visits V isits Requested Authorized [id number] Pending 11/30/2021 11/30/2022 1 1 Review Reason for Visit Reason Comments Recheck Medication Encounter Details Date Type Department Care Team Description 11/30/2021 Office Visit [facility] Dhruv Louise eep vein thrombosis (DVT) of lower extremity, unspecified laterality, unspecified vein (H) (Primary Dx); Clinic Chhaya Dubose MD Anal fistula; [address] [facility] S/P colectomy; [place], [place] Neck pain; [address] H/O ulcerative colitis; [phone] Mild persistent asthma without complication; Other ulcerativ e colitis without complication (H); Essential hyper tension; Anemia, unspeci fied type Social History Tobacco Use Types Packs/Day Years Used Date Smoking Tobacco: Former Cigarettes 2 25 Quit : 08/04/2006 Smokeless Tobacco: Never Comments: 2004 Alcohol Use Standard Drinks/Week Comments Yes 0 (1 standard drink = 0.6 oz pure alcoho l) 4 BEERS A day Alcohol Habits Answer Date Recorded How often do you have a drink containing 4 or more times a w [place] 05/25/2021 alcohol? How many drinks containing alcohol [...] or relatives? How often do you attend mandaen or Patient refused 2020 sikh services? 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 Per lab note pt is to check hgb again Your hemoglobin level is slightly low related to your wound issue likely and being on warfarin. ??Wecan monitor this with recheck at your next visit. ? Visit is not preventive. Meds Home Meds reviewed and updated Entered patient-preferred pharmacy. Current Outpatient Medications Medication ??? Acetaminophen (TYLENOL 8 HOUR PO) ??? albuterol (PROAIR HFA/PROVENTIL HFA/VENTOLIN HFA) 108 (90 Base) MCG/ACT inhaler ??? fish oil-omega-3 fatty acids 1000 MG capsule ??? Hyrfvaaiqdk-Opvqxuwxm-Uvnirtnuer (TRELEGY ELLIPTA) 100-62.5-25 MCG/INH oral inhaler ??? lisinopril-hydrochlorothiazide (ZESTORETIC) 20-25 MG tablet ??? loperamide (IMODIUM) 2 MG capsule ??? multivitamin w/minerals (THERA-VIT-M) tablet ??? terazosin (HYTRIN) 5 MG capsule ??? triamcinolone (KENALOG) 0.1 % external cream ??? vitamin D3 (CHOLECALCIFEROL) 250 mcg (73478 units) capsule ??? Vitamin Mixture (EMILY-C PO) ??? warfarin ANTICOAGULANT (COUMADIN) 5 MG tablet ??? warfarin ANTICOAGULANT (COUMADIN) 7.5 MG tablet ??? zolpidem ER (AMBIEN CR) 12.5 MG CR tablet No current facility-administered medications for this visit. Pinion.gghart Patient is active on [employer]. Call Summary Advised patient to call back at [phone] if needed. Esthela Corea RN Dhruv Louise MD - 11/30/2021 3:30 PM CDT Assessment & Plan Chronic deep vein thrombosis (DVT) of lower extremity, unspecified laterality, unspecified vein (H) Continue warfarin with recurrent DVT. Anal fistula Following with colorectal and monitoring. - CBC with platelets - Comprehensive metabolic panel (BMP + Alb, Alk Phos, ALT, AST, Total. Bili, TP) S/P colectomy Neck pain Appears to be secondary to degenerative joint disease of cervical spine. Discussed conservative management. - XR Cervical Spine 2/3 Views H/O ulcerative colitis - loperamide (IMODIUM) 2 MG capsule; TAKE 3-4 CAPSULES (6-8 MG) BY MOUTH 3 TIMES DAILY NEEDED FORDIARRHEA Mild persistent asthma without complication Currently well controlled, continue current inhaler. Other ulcerative colitis without complication (H) Essential hypertension Currently well controlled, continue current medication. BMI: Estimated body mass index is 32.82 kg/m?? as calculated from the following: Height as of 05/25/21: 1.829 m (6'). Weight as of this encounter: 109.8 kg (242 lb). No follow-ups on file. Dhruv Louise MD [facility] Herman is a 65 year old who presents for the following health issues HPI Patient with history of DVT in 2013 after colon surgery and positive anticardiolipin antibody, he has a IVC filter as well. Prior clot in the right lower extremity DVT in 2013 thought to be provoked with surgery after colectomy and has seen hematology who thought him safe to stop Coumadin.??He??was found to have extensive bilateral lower extremity DVT and PE in September 2017. He underwent mechanical andmedical thrombectomy. Patient??was??restarted on??Coumadin indefinitely. History of mild persistent asthma, controlled. He is using the Trelegy inhaler currently. History of ulcerative colitis, status post colectomy. 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 Stable symptoms followed by rectal surgeon and would require complete excision and re- anastomosis likely. Taking loperamide with UC for symptoms. Patient with history of insomnia. He uses Ambien as needed, typically twice per week. History of hypertension on lisinopril and hydrochlorothiazide as well as terazosin. BPH on terazosin. Review of Systems Objective BP 128/68 Pulse 70 Temp 97.7 ??F (36.5 ??C) (Oral) Resp 14 Wt 109.8 kg (242 lb) SpO2 97% BMI 32.82 kg/m?? Body mass index is 32.82 kg/m??. Physical Exam GENERAL: alert and no distress X-ray cervical spine ordered and interpreted in the office today. X-ray shows: Moderate degenerativechange at C5-6. Radiology read pending. documented in this encounter Miscellaneous Notes Addendum Note - Dhruv Louise MD - 11/30/2021 3:30 PM CDT Addended by: DHRUV LOUISE on: 12/03/2021 11:01 AM Modules accepted: Orders documented in this encounter Plan of Treatment Upcoming Encounters Date Type Specialty Care Team Description 05/20/2022 Lab Lab documented as of this encounter Procedures Procedure Name Priority Date/Time Associated Comments Diagnosis XR CERVICAL SPINE 2/3 Routine 11/30/2021 3:49 PM Neck pain Results for this VIEWS CDT procedure are i n the results section. IRON AND IRON BINDING Add-On 11/30/2021 3:48 PM Anemia, unspe cified Results for this CAPACITY CDT type procedure are i n the results section. FERRITIN Add-On 11/30/2021 3:48 PM Anemia, unspecified Re sults for this CDT type procedure are i n the results section. COMPREHENSIVE Routine 11/30/2021 3:48 PM Anal fistula Results for this METABOLIC PANEL CDT procedure ar e in the results section. CBC WITH PLATELETS Routine 11/30/2021 3:48 PM Anal fistula Res ults for this CDT procedure are i n the results [...] mouth view. MIKE LARA MD SYSTEM ID: [id number] Procedure Note Mike Lara MD - 11/30/2021Format ting of this note might be different from the original. XR CERVICAL SPINE 2/3 VWS 11/30/2021 3:49 PM COMPARISON: None HISTORY: Chronic neck pain. FINDINGS: Normal vertebral body heights. Straightened lordosis. Normal coronal alignment. Moderate C4-5 and C5- 6 interbody degeneration. Mild mid cervical facet arthropathy. Normal o pen mouth view. MIKE LARA MD SYSTEM ID: [id number] Dhruv Louise MD IMG DIAGNOSTIC IMAGING ORDER SADIQ (ABNORMAL) Iron and iron binding capacity (11/30/2021 3:48 PM CDT) athologist Signature Iron 39 35 - 180 12/03/2021 [facility] ug/dL 11:31 AM CDT Iron Binding 332 240 - 430 12/03/2021 [facility] Capacity ug/dL 11:31 AM CDT Iron Sat Index 12 (L) 15 - 46 % 12/03/2021 [facility] 11:31 AM CDT Specimen Anatomical Collection Method / Collection Time Recei lindy Time (Source) Location / Volume Laterality Blood BLOOD SPECIMEN / Venipuncture / 11/30/2021 3:48 2021 3:48 Unknown Unknown PM CDT PM CDT Dhruv Louise MD LAB - BLOOD ORDERABLES Performing Organization Address City/State/ZIP Code Phon e Number [facility] [place], [place] [phone] [facility] [phone] [place] [address] Lab (no room number, 1st floor of clinic) [facility] [place], [place] [phone] [facility] [phone] [address] Lab (no room number, 1st floor of clinic) Ferritin (11/30/2021 3:48 PM CDT) athologist Signature Ferritin 78 26 - 388 12/03/2021 [facility] ng/mL 11:34 AM CDT Specimen Anatomical Collection Method / Collection Time Recei lindy Time (Source) Location / Volume Laterality Blood BLOOD SPECIMEN / Venipuncture / 11/30/2021 3:48 2021 3:48 Unknown Unknown PM CDT PM CDT Dhruv Louise MD LAB - BLOOD ORDERABLES Performing Organization Address City/State/ZIP Code Phon e Number [facility] [place], [place] [phone] [facility] [address] [address] Lab (no room number, 1st floor of clinic) [facility] [place], [place] [phone] [facility] [address], [facility] [address] Lab (no room number, 1st floor of clinic) (ABNORMAL) Comprehensive metabolic panel (BMP + Alb, Alk Phos, ALT, AST, Total. Bili, TP) (11/30/2021 3:48 PM CDT) [facility] Method Time Signature Sodium 138 133 - 144 2021 [facility] mmol/L 10:26 AM CDT Potassium 4.2 3.4 - 5.3 2021 [facility] mmol/L 10:26 AM CDT Chloride 107 94 - 109 2021 [facility] mmol/L 10:26 AM CDT Carbon Dioxide 29 20 - 32 2021 [facility] (CO2) mmol/L 10:26 AM CDT Anion Gap 2 (L) 3 - 14 2021 [facility] mmol/L 10:26 AM CDT Urea Nitrogen 27 7 - 30 2021 [facility] mg/dL 10:26 AM CDT Creatinine 1.01 0.66 - 2021 [facility] 1.25 mg/dL 10:26 AM CDT Calcium 9.0 8.5 - 10.1 2021 [facility] mg/dL 10:26 AM CDT Glucose 103 (H) 70 - 99 2021 [facility] mg/dL 10:26 AM CDT Alkaline 82 40 - 150 2021 [facility] Phosphatase U/L 10:26 AM CDT AST 17 0 - 45 U/L 2021 [facility] 10:26 AM CDT ALT 23 0 - 70 U/L 2021 [facility] 10:26 AM CDT Protein Total 7.3 6.8 - 8.8 2021 [facility] g/dL 10:26 AM CDT Albumin 3.5 3.4 - 5.0 2021 [facility] g/dL 10:26 AM CDT Bilirubin Total 0.7 0.2 - 1.3 2021 [facility] mg/dL 10:26 AM CDT GFR Estimate 84 >60 2021 [facility] mL/min/1.7 10:26 AM CDT 3m2 Comment: Effective June 12, 2021 eGF Rcr in adults is calculated using the 2020 CKD-EPI creatinine equation which includ es age and gender (Kaylen et al., NEJ, DOI: 10.1056/QORQfz6209479) Specimen Anatomical Collection Method / Collection Time Recei lindy Time (Source) Location / Volume Laterality Blood BLOOD SPECIMEN / Venipuncture / 11/30/2021 3:48 2021 3:48 Unknown Unknown PM CDT PM CDT Dhruv Louise MD LAB - BLOOD ORDERABLES Performing Organization Address City/State/ZIP Code Phon e Number [facility] [place], [place] [phone] [facility] [phone] [place] [address] Lab (no room number, 1st floor of clinic) [facility] [place], [place] [phone] [place] [id number] [address] [place] [address] Lab (no room number, 1st floor of clinic) (ABNORMAL) CBC with platelets (11/30/2021 3:48 PM CDT) [facility] Method Time Signature WBC Count 5.4 4.0 - 11.0 11/30/2021 [facility] 10e3/uL 4:09 PM CDT RBC Count 4.12 (L) 4.40 - 11/30/2021 [facility] 5.90 4:09 PM CDT 10e6/uL Hemoglobin 12.4 (L) 13.3 - 11/30/2021 [facility] 17.7 g/dL 4:09 PM CDT Hematocrit 37.8 (L) 40.0 - 11/30/2021 [facility] 53.0 % 4:09 PM CDT MCV 92 78 - 100 11/30/2021 [facility] fL 4:09 PM CDT MCH 30.1 26.5 - 11/30/2021 [facility] 33.0 pg 4:09 PM CDT MCHC 32.8 31.5 - 11/30/2021 [facility] 36.5 g/dL 4:09 PM CDT RDW 14.5 10.0 - 11/30/2021 [facility] 15.0 % 4:09 PM CDT Platelet Count 220 150 - 450 11/30/2021 [facility] 10e3/uL 4:09 PM CDT Specimen Anatomical Collection Method / Collection Time Recei lindy Time (Source) Location / Volume Laterality Blood BLOOD SPECIMEN / Venipuncture / 11/30/2021 3:48 2021 3:48 Unknown Unknown PM CDT PM CDT Dhruv Louise MD LAB - BLOOD ORDERABLES Performing Organization Address City/State/ZIP Code Phon [place] [address] Lab [address] [facility] Lab (no room number, 1st floor of clinic) [place] [address], [facility] [address] [facility] Lab (no room number, 1st floor of clinic) documented in this encounter Visit Diagnoses Diagnosis Chronic deep vein thrombosis (DVT) of lo wer extremity, unspecified laterality, unspecified vein (H) - Primary Anal fistula S/P colectomy Other postprocedural status Neck pain Cervicalgia H/O ulcerative colitis Personal history of other diseases of di gestive system Mild persistent asthma without complicat ion Unspecified asthma Other ulcerative colitis without complic ation (H) Essential hypertension Unspecified essential hypertension Anemia, unspecified type documented in this encounter Care Teams Gis Professor Relationship Specialty Start Date End Date Dhruv Louise MD PCP - General Family Practice 02/22/14 Dhruv Louise MD Assigned PCP 03/13/14 2 Esthela Corea, RN Personal Advocate & Liaison Family Medicine 10/16 (PAL) documented as of this encounter
--- OUTSIDE RECORDS SUMMARY | 2022-05-15 22:16 | XMS_ITS | Encounter Summary ---
:1955 Author Organization [place] Address [address] [place] [address]. [place] [address] Care Team Providers Name Role Phone Froylan Louise MD Primary Care Provider Unavailable Froylan Louise MD Unavailable Unavailable Esthela Corea RN Unavailable Unavailable Encounter Details Date Type Department Care Team Description 09/12/[address] [facility], Chronic deep vein thrombosis (DVT) of lower extremity, unspecified laterality, unspecified vein (H) (Primary Dx); Therapy Visit Anticoagulation Diana Conrad RN detention current use of anticoagulant therapy Clinic [address] [place] [address] Social History Tobacco Use Types Packs/Day Years Used Date Smoking Tobacco: Former Cigarettes 2 25 Quit : 08/04/2006 Smokeless Tobacco: Never Comments: 2004 Alcohol Use Standard Drinks/Week Comments Yes 0 (1 standard drink = 0.6 oz pure alcoho l) 4 BEERS A day Alcohol Habits Answer Date Recorded How often do you have a drink containing 4 or more times a w [place] 05/25/2021 alcohol? How many drinks containing alcohol [...] you attend caodaism or Patient refused 2020 mu-ism services? Do you belong to any clubs [...] place to sleep or slept in a prison (including now)? Sex Assigned at Date Recorded Not on file documented as of this encounter Progress Notes Elfiki, Diana M, RN - 09/12/2021 5:17 PM CDT ANTICOAGULATION MANAGEMENT Virgil Christine 65 year old male is on warfarin with therapeutic INR result. (Goal INR 2.0-3.0) Recent labs: (last 7 days) 09/12/21 1440 INR 2.4* ASSESSMENT ??? Source(s): Chart Review and Patient/Caregiver Call ??? Warfarin doses taken: Warfarin taken as instructed ??? Diet: No new diet changes identified ??? New illness, injury, or hospitalization: No ??? Medication/supplement changes: None noted ??? Signs or symptoms of bleeding or clotting: No ??? Previous INR: Therapeutic last 2(+) visits ??? Additional findings: New vitamins have 20 mcg vit K instead of 30 mcg like his previous ones, sohe will add an extra serving per week of steamed broccoli. PLAN Recommended plan for ongoing change(s) affecting INR Dosing Instructions: Continue your current warfarin dose with next INR in 6 weeks Summary As of 09/12/2021 Full warfarin instructions: 5 mg every Wed; 7.5 mg all other days Next INR check: 10/24/2021 Telephone call with Virgil who verbalizes understanding and agrees to plan Lab visit scheduled Education provided: Please call back if any changes to your diet, medications or how you've been taking warfarin, Importance of consistent vitamin K intake and Contact [phone] with any changes, questions or concerns. Plan made per [facility] anticoagulation protocol Diana Nielsen RN Anticoagulation Clinic 09/12/2021 Anticoagulation Episode Summary Current INR goal: 2.0-3.0 TTR: 66.2 % (11.8 mo) Target end date: Indefinite Send INR reminders to: [facility] Indications Chronic deep vein thrombosis (DVT) of lower extremity unspecified laterality unspecified vein (H) [I82.509] Long-term (current) use of anticoagulants [Z79.01] [Z79.01] Comments: Anticoagulation Care Providers Provider Role Specialty Phone number Froylan Louise MD Referring Family Medicine [phone] documented in this encounter Plan of Treatment Upcoming Encounters Date Type Specialty Care Team Description 05/20/2022 Lab Lab documented as of this encounter Visit Diagnoses Diagnosis Chronic deep vein thrombosis (DVT) of lo wer extremity, unspecified laterality, unspecified vein (H) - Primary supplier diversity director current use of anticoagulant t herapy documented in this encounter Care Teams Spring Encaser Relationship Specialty Start Date End Date Froylan Louise MD PCP - General Family Practice 02/22/14 Froylan Louise MD Assigned PCP 03/13/14 2 Esthela Corea, RN Personal Advocate & Liaison Family Medicine 10/16 (PAL) documented as of this encounter
--- OUTSIDE RECORDS SUMMARY | 2022-05-15 22:16 | XMS_ITS | Encounter Summary ---
:1955 Author Organization [facility] Address [address] [place] [address] Care Team Providers Name Role Phone Froylan Louise MD Primary Care Provider Unavailable Froylan Louise MD Unavailable Unavailable Esthela Corea RN Unavailable Unavailable Encounter Details Date Type Department Care Team Description 12/03/2021 Telephone [facility] Froylan Louise Ra, MD [place] [address] [place] [address] Social History Tobacco Use Types [...] containing 4 or more times a w [place] 05/25/2021 alcohol? How many drinks containing alcohol [...] or relatives? How often do you attend jainism or Patient refused 2020 adventism services? Do you belong to any clubs or Yes 05/25/2021 organizations such as jainism groups, unions, fraternal or athletic groups, or [...] place to sleep or slept in a jail (including now)? Sex Assigned at Date Recorded Not on file COVID-19 Exposure Response Date Recorded In the last 10 days, have you been in contact with No / Unsu re 11/30/2021 2:58 PM CDT someone who was confirmed or suspected to have Coronavirus/COVID-19? documented as of this encounter Miscellaneous Notes Telephone Encounter - Froylan Louise MD - 12/03/2021 2:43 PM CDT Discussed lab results. Mild anemia with iron saturation slightly low. Appears to be slightly iron deficient and will take iron supplement daily over the next 3 months. Lab only appointment in 3 months. Ferrous sulfate 325 mg daily for 3 months. If continues to be slightly anemic this may be anemia of chronic disease related to ulcerative colitis. documented in this encounter Plan of Treatment Upcoming Encounters Date Type Specialty Care Team Description 05/20/2022 Lab Lab Scheduled Orders Name Type Priority Associated Diagnoses Order S chedule CBC with platelets Lab Routine Anemia, unspecified ty pe Expected: 12/03/2021 (Approximate), Expires: 2022 Iron and iron binding Lab Routine Anemia, unspecified type Expected: 12/03/2021 capacity (Approximate), Expires: 2022 documented as of this encounter Visit Diagnoses Diagnosis Anemia, unspecified type - Primary documented in this encounter Care Teams Coding Coordinator Relationship Specialty Start Date End Date Froylan Louise MD PCP - General Family Practice 02/22/14 Froylan Louise MD Assigned PCP 03/13/14 2 Esthela Corea RN Personal Advocate & Liaison Family Medicine 10/16 (PAL) documented as of this encounter
--- OUTSIDE RECORDS SUMMARY | 2022-05-15 22:16 | XMS_ITS | Encounter Summary ---
:1955 Author Organization [place] Address [address] [place] [address]. [place] [address] Care Team Providers Name Role Phone Froylan Louise MD Primary Care Provider Unavailable Froylan Louise MD Unavailable Unavailable Esthela Corea RN Unavailable Unavailable Encounter Details Date Type Department Care Team Description 08/01/2021 Anticoagulation [facility], Chronic deep vein thrombosis (DVT) of lower extremity, unspecified laterality, unspecified vein (H) (Primary Dx); Therapy Visit Anticoagulation Diana Conrad RN senior living current use of anticoagulant therapy Clinic [address] [place] [address] Social History Tobacco Use Types [...] or relatives? How often do you attend holiness or Patient refused 2020 rastafari services? 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 documented as of this encounter Progress Notes Diana Nielsen RN - 08/01/2021 5:47 PM CST Anticoagulation Management Unable to reach karli today. Today's INR result of 2.4 is therapeutic (goal INR of 2.0-3.0). Result received from: Clinic Lab Follow up required to confirm warfarin dose taken and assess for changes. Last two INRs therapeutic.If, after boat fueler, no changes or concerns, next INR in 6 weeks. Left message to continue current dose of warfarin 5 mg tonight. Request call back for assessment. Anticoagulation clinic to follow up Diana Nielsen RN PPER AND OPAQUER APPRENTICE Diana Nielsen RN - 08/01/2021 5:47 PM CST ANTICOAGULATION MANAGEMENT Karli Christine 65 year old male is on warfarin with therapeutic INR result. (Goal INR 2.0-3.0) Recent labs: (last 7 days) 08/01/21 1540 INR 2.4* ASSESSMENT Source(s): Chart Review and Patient/Caregiver Call ??? Warfarin doses taken: Warfarin taken as instructed ??? Diet: No new diet changes identified ??? New illness, injury, or hospitalization: No ??? Medication/supplement changes: None noted ??? Signs or symptoms of bleeding or clotting: No ??? Previous INR: Therapeutic x2 ??? Additional findings: None PLAN Recommended plan for no diet, medication or health factor changes affecting INR Dosing Instructions: Continue your current warfarin dose with next INR in 6 weeks Summary As of 08/01/2021 Full warfarin instructions: 5 mg every Wed; 7.5 mg all other days Next INR check: 09/12/2021 Telephone call with Karli who verbalizes understanding and agrees to plan Lab visit scheduled Education provided: Please call back if any changes to your diet, medications or how you've been taking warfarin and Contact [phone] with any changes, questions or concerns. Plan made per [facility] anticoagulation protocol Diana Nielsen RN Anticoagulation Clinic 08/02/2021 Anticoagulation Episode Summary Current INR goal: 2.0-3.0 TTR: 59.0 % (11.8 mo) Target end date: Indefinite Send INR reminders to: [facility] Indications Chronic deep vein thrombosis (DVT) of lower extremity unspecified laterality unspecified vein (H) [I82.509] Long-term (current) use of anticoagulants [Z79.01] [Z79.01] Comments: Anticoagulation Care Providers Provider Role Specialty Phone number Froylan Louise MD Referring Family Medicine [phone] PPER AND OPAQUER APPRENTICE documented in this encounter Plan of Treatment Upcoming Encounters Date Type Specialty Care Team Description 05/20/2022 Lab Lab documented as of this encounter Visit Diagnoses Diagnosis Chronic deep vein thrombosis (DVT) of lo wer extremity, unspecified laterality, unspecified vein (H) - Primary intermediate 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
--- OUTSIDE RECORDS SUMMARY | 2022-05-15 22:16 | XMS_ITS | Encounter Summary ---
:1955 Author Organization [facility] Address [address] [place] [address] Care Team Providers Name Role Phone Froylan Louise MD Primary Care Provider Unavailable Froylan Louise MD Unavailable Unavailable Esthela Corea RN Unavailable Unavailable Encounter Details Date Type Department Care Team Description 09/12/2021 [facility] Chr onic deep vein thrombosis (DVT) of lower extremity, unspecified laterality, unspecified vein (H); [facility] intermediate current use of ant icoagulant therapy [address] [place] [address] Social History Tobacco Use [...] 4 or more times a w [place] 05/25/2021 alcohol? How many drinks containing alcohol [...] or relatives? How often do you attend druze or Patient refused 2020 church services? Do you belong to any clubs or Yes 05/25/2021 organizations such as druze groups, unions, fraternal or athletic groups, or [...] Comme nts INR POINT OF CARE Routine 09/12/2021 2:40 PM Chronic deep vein Results for this CDT thrombosis (DVT) of procedgerald e are in lower extremity, the results unspecified section. laterality, unspecified vein (H) intermediate current use of anticoagulant therapy documented in this encounter Results (ABNORMAL) INR point of care (09/12/2021 2:40 PM CDT) P athologist Signature INR 2.4 (H) 0.9 - 1.1 09/12/2021 [facility] 2:41 PM CDT Specimen Anatomical Collection Method Collection Time Receive d Time (Source) Location / / Volume Laterality Blood CAPILLARY BLOOD / Capillary / 09/12/2021 2:40 PM 08/22 2:40 Unknown Unknown CDT PM CDT Narrative [facility] - 09/12/2021 2:41 PM CDT This test is intended for monitoring Cou madin therapy. Results are not accurate in patients with prolonged INR due to facto r deficiency. 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
--- OUTSIDE RECORDS SUMMARY | 2022-05-15 22:16 | XMS_ITS | Encounter Summary ---
:1955 Author Organization [facility] Address [facility]ly [facility] [place] [address] Care Team Providers Name Role Phone Esthela Corea RN Unavailable Unavailable So Dodd MD Primary Care Provider So Dodd MD Unavailable Encounter Details Date Type Department Care Team Description 01/10/2022 Anticoagulation [facility], Chronic deep vein thrombosis (DVT) of lower extremity, unspecified laterality, unspecified vein (H) (Primary Dx); Therapy Visit Anticoagulation Diana Conrad RN intermission coordinator current use of anticoagulant therapy; Clinic Postthrombotic syndrome; [address] [place] [address] Anticardiolipin antibody pos itive; [place], [place] intermission coordinator cu rrent use of anticoagulants with INR [...] containing 4 or more times a w [place] 05/25/2021 alcohol? How many drinks containing [...] or relatives? How often do you attend pentecostal or Patient refused 2020 advent services? Do you belong to any clubs or Yes 05/25/2021 organizations such as pentecostal groups, unions, fraternal or athletic groups, or [...] encounter Progress Notes Diana Nielsen RN - 01/10/2022 3:33 PM CDT ANTICOAGULATION MANAGEMENT Virgil Christine 66 year old male is on warfarin with therapeutic INR result. (Goal INR 2.0-3.0) Recent labs: (last 7 days) 01/10/22 1314 INR 2.3* ASSESSMENT ??? Source(s): Chart Review and Patient/Caregiver Call ??? Warfarin doses taken: Warfarin taken as instructed ??? Diet: No new diet changes identified ??? New illness, injury, or hospitalization: Yes: back pain worsening. He just saw Dr. Le[facility] at [facility] today who plans a spinal injection. ??? Medication/supplement changes: None noted ??? Signs or symptoms of bleeding or clotting: No ??? Previous INR: Therapeutic last 2(+) visits ??? Additional findings: States he is going with Dr. Dodd for his PCP. This designer/writer notified Virgil that it has been almost a year since she saw her so he should make another visit so there can be a smooth transition from Dr. Louise. He stated understanding. PLAN Recommended plan for no diet, medication or health factor changes affecting INR Dosing Instructions: continue your current warfarin dose with next INR in 6 weeks Summary As of 01/10/2022 Full warfarin instructions: 5 mg every Wed; 7.5 mg all other days Next INR check: 02/21/2022 Telephone call with Virgil who verbalizes understanding and agrees to plan Lab visit scheduled Education provided: Please call back if any changes to your diet, medications or how you've been taking warfarin and Contact [phone] with any changes, questions or concerns. Plan made per [facility] anticoagulation protocol Diana Nielsen RN Anticoagulation Clinic 01/10/2022 Anticoagulation Episode Summary Current INR goal: 2.0-3.0 TTR: 80.2 % (11.9 mo) Target end date: Indefinite Send INR reminders to: 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] [facility] current use of anticoagulants with INR goal of 2.0-3.0 [Z79.01] Comments: Anticoagulation Care Providers Provider Role Specialty Phone number Froylan Louise MD Referring Family Medicine [phone] documented in this encounter Plan of Treatment Upcoming Encounters Date Type Specialty Care Team Description 05/20/2022 Lab Lab documented as of this encounter Visit Diagnoses Diagnosis Chronic deep vein thrombosis (DVT) of lo wer extremity, unspecified laterality, unspecified vein (H) - Primary intermission coordinator current use of anticoagulant t herapy 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
--- OUTSIDE RECORDS SUMMARY | 2022-05-15 22:16 | XMS_ITS | Encounter Summary ---
:1955 Author Organization [facility] Address [address] [place] [address] Care Team Providers Name Role Phone Froylan Louise MD Primary Care Provider Unavailable Froylan Louise MD Unavailable Unavailable Esthela Corea RN Unavailable Unavailable Reason for Visit Reason Comments Medication Refill Encounter Details Date Type Department Care Team Description 11/15/2021 Refill [facility] Froylan Louise Ra, MD Medication Refill [address] [address] Social History Tobacco Use [...] 4 or more times a w [place] 05/25/2021 alcohol? How many drinks containing alcohol [...] or relatives? How often do you attend yazidi or Patient refused 2020 roman catholic services? Do you belong to any clubs or Yes 05/25/2021 organizations such as yazidi groups, unions, fraternal or athletic groups, or [...] this encounter Miscellaneous Notes Telephone Encounter - Nahomy, Esthela Conrad RN - 11/16/2021 2:55 PM CDT Review for RF Esthela Corea RN Telephone Encounter - Esthela Corea RN - 11/16/2021 2:55 PM CDT Prescription approved per [facility] Refill Protocol. Esthela Corea RN documented in this encounter Plan of Treatment Upcoming Encounters Date Type Specialty Care Team Description 05/20/2022 Lab Lab documented as of this encounter Visit Diagnoses Diagnosis Acute deep vein thrombosis (DVT) of prox imal vein of both lower extremities (H) H/O ulcerative colitis Personal history of other diseases of di gestive system documented in this encounter Care Teams Outpatient Program Coordinator Relationship Specialty Start Date End Date Froylan Louise MD PCP - General Family Practice 02/22/14 Froylan Louise MD Assigned PCP 03/13/14 2 Esthela Corea, RN Personal Advocate & Liaison Family Medicine 10/16 (PAL) documented as of this encounter
--- OUTSIDE RECORDS SUMMARY | 2022-05-15 22:16 | XMS_ITS | Encounter Summary ---
:1955 Author Organization [facility] Address [facility] 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 How many drinks containing alcohol [...] or relatives? How often do you attend worship or Patient refused 2020 sikh services? Do you belong to any clubs or Yes 05/25/2021 organizations such as worship groups, unions, fraternal or athletic groups, or [...] documented as of this encounter Progress Notes Yaima Crump RN - 10/23/2021 4:47 PM CDT ANTICOAGULATION MANAGEMENT Virgil Christine 65 year old male is on warfarin with therapeutic INR result. (Goal INR 2.0-3.0) Recent labs: (last 7 days) 10/23/21 1548 INR 2.4* ASSESSMENT ??? Source(s): Chart Review [...] INR in 6 weeks Summary As of 10/23/2021 Full warfarin instructions: 5 mg every Wed; 7.5 mg all other days Next INR check: 11/30/2021 Telephone call with Virgil who verbalizes understanding and agrees to plan Lab visit scheduled Education provided: Please call back if any changes to your diet, medications or how you've been taking warfarin Plan made per [facility] anticoagulation protocol Yaima Crump, CINDY Anticoagulation Clinic 10/23/2021 Anticoagulation Episode Summary Current INR goal: 2.0-3.0 TTR: 67.6 % (11.9 mo) Target end date: Indefinite Send INR reminders to: [facility] Indications Chronic deep vein thrombosis (DVT) of lower extremity unspecified laterality unspecified vein (H) [I82.509] Long-term (current) use of anticoagulants [Z79.01] [Z79.01] 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] 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 with INR goal of 2.0-3.0 [Z79.01] Comments: Anticoagulation Care Providers Provider Role Specialty Phone number Froylan Louise MD Referring Family Medicine [phone] documented in this encounter Plan of Treatment Upcoming Encounters Date Type Specialty Care Team Description 05/20/2022 Lab Lab documented as of this encounter Visit Diagnoses Diagnosis Chronic deep vein thrombosis (DVT) of lo wer extremity, unspecified laterality, unspecified vein (H) - Primary 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
--- OUTSIDE RECORDS SUMMARY | 2022-05-15 22:16 | XMS_ITS | Encounter Summary ---
:1955 Author Organization [facility] Address [facility] [place] [address] Care Team Providers Name Role Phone Froylan Louise MD Primary Care Provider Unavailable Froylan Louise MD Unavailable Unavailable Esthela Corea RN Unavailable Unavailable Reason for Visit Diagnostic Imaging XR (Routine) - Pending Review Specialty Diagnoses / Procedures Referred By Contact Refer red To Contact Diagnoses Leg injury, left, initial encounter Shani Chase NP Procedures XR Tibia & Fibula Left 2 Views [address] [place] [address] Referral ID Status Reason Start Date Expiration Date Visits V isits Requested Authorized [id number] Pending 09/27/2021 09/27/2022 1 1 Review Encounter Details Date Type Department Care Team Description 09/27/2021 Ancillary Procedure [facility] Shani Chase Leg injury, left, Clinic Chhaya Conrad, JANNET initial encounter [address] [facility] [address] [place] [address] [phone] Social History Tobacco Use Types Packs/Day Years Used Date Smoking Tobacco: Former Cigarettes 2 25 Quit : 08/04/2006 Smokeless Tobacco: Never Comments: 2004 Alcohol Use Standard Drinks/Week Comments Yes 0 (1 standard drink = 0.6 oz pure alcoho l) 4 BEERS A day Alcohol Habits Answer Date Recorded How often do you have a drink containing 4 or more times a w [place] 05/25/2021 alcohol? How many drinks containing alcohol [...] you attend rastafari or Patient refused 2020 zoroastrianism services? Do you belong to any clubs [...] place to sleep or slept in a fdc (including now)? Sex Assigned at Date Recorded [...] Priority Date/Time Associated Diagnosis Comme nts XR TIBIA AND FIBULA Routine 09/27/2021 1:09 PM Leg injury, lef t, Results for this LEFT 2 VIEWS CDT initial encounter procedure are in the results section. documented in this encounter [...] PREM DECKER MD SYSTEM ID: [id number] Shani Conrad Rena POWER IMG DIAGNOSTIC IMAGING ORDER SADIQ documented in this encounter Visit Diagnoses Diagnosis Leg injury, left, initial encounter documented in this encounter Care Teams Hearing Aid Mechanic Relationship Specialty Start Date End Date Froylan Louise MD PCP - General Family Practice 02/22/14 Froylan Louise MD Assigned PCP 03/13/14 2 Esthela Corea, RN Personal Advocate & Liaison Family Medicine 10/16 (PAL) documented as of this encounter
--- OUTSIDE RECORDS SUMMARY | 2022-05-15 22:16 | XMS_ITS | Encounter Summary ---
:1955 Author Organization [place] Address [address] [place] [address] Care Team Providers Name Role Phone Froylan Louise MD Primary Care Provider Unavailable Froylan Louise MD Unavailable Unavailable Esthela Corea RN Unavailable Unavailable Encounter Details Date Type Department Care Team Description 08/01/2021 Travel Social History Tobacco Use Types Packs/Day Years Used Date Smoking Tobacco: Former Cigarettes 2 25 Quit : 08/04/2006 Smokeless Tobacco: Never Comments: 2004 Alcohol Use Standard Drinks/Week Comments Yes 0 (1 standard drink = 0.6 oz pure alcoho l) 4 BEERS A day Alcohol Habits Answer Date Recorded How often do you have a drink containing 4 or more times a w [place] 05/25/2021 alcohol? How many drinks containing alcohol [...] or relatives? How often do you attend buddhist or Patient refused 2020 jainism services? 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 documented as of this encounter Plan of Treatment Upcoming Encounters Date Type Specialty Care Team Description 05/20/2022 Lab Lab documented as of this encounter Visit Diagnoses Not on filedocumented in this encounter Care Teams Floorworker Relationship Specialty Start Date End Date Froylan Louise MD PCP - General Family Practice 02/22/14 Froylan Louise MD Assigned PCP 03/13/14 2 Esthela Corea, RN Personal Advocate & Liaison Family Medicine 10/16 (PAL) documented as of this encounter
--- OUTSIDE RECORDS SUMMARY | 2022-05-15 22:16 | XMS_ITS | Encounter Summary ---
:1955 Author Organization [place] Address [address] [place] [address] Care Team Providers Name Role Phone Froylan Louise MD Primary Care Provider Unavailable Esthela Corea RN Unavailable Unavailable So Dodd MD Unavailable Reason for Visit Reason Onset Date Comments Referral 01/08/2022 Encounter Details Date Type Department Care Team Description 01/08/2022 [facility] Froylan Louise Ra, MD Referral [address] [address] Social History Tobacco Use [...] containing 4 or more times a w [place] 05/25/2021 alcohol? How many drinks containing [...] or relatives? How often do you attend samaritan or Patient refused 2020 adventism services? Do you belong to any clubs or Yes 05/25/2021 organizations such as samaritan groups, unions, fraternal or athletic groups, or [...] place to sleep or slept in a intermediate (including now)? Sex Assigned at Date Recorded Not on file documented as of this encounter Miscellaneous Notes Telephone Encounter - Page, Esthela Conrad RN - 01/08/2022 1:08 PM CDT Called and spoke with pt to find out which provider he would like to establish care with or if he isfollowing Dr. Louise. Pt states he is unsure if his insurance will allow him to move into the [facility] system. At this time he wanted to schedule a visit for the referral. Pt states I need the injection like yesterday. At work everyone tells me to go home because I am in so much pain. Pt states he cannot bend over from the pain in his back. Scheduled him with Dr. Virgen for virtual visit 01/10 @ 940. Lyn Lopez RN/Esthela Corea RN Telephone Encounter - Vianney Berman MA - 01/08/2022 9:43 AM CDT Patient is looking to see if he can get another order to [facility] for steroid injection. Last injection was 07/11/20. Vianney Berman, Applied Biology Professor documented in this encounter Plan of Treatment Upcoming Encounters Date Type Specialty Care Team Description 05/20/2022 Lab Lab documented as of this encounter Visit Diagnoses Not on filedocumented in this encounter Care Teams Hop Grower Relationship Specialty Start Date End Date Froylan Louise MD PCP - General Family Practice 02/22/14 Esthela Corea RN Personal Advocate & Liaison Family Medicine 10/16 (PAL) So Dodd MD Assigned PCP 01/05/22 [address] [address] [place], [place] [id number] documented as of this encounter
--- OUTSIDE RECORDS SUMMARY | 2022-05-15 22:16 | XMS_ITS | Encounter Summary ---
:1955 Author Organization [place] Address [address] [place] [address] Care Team Providers Name Role Phone Froylan Louise MD Primary Care Provider Unavailable Froylan Louise MD Unavailable Unavailable Esthela Corea RN Unavailable Unavailable Reason for Visit Reason Comments Medication Refill Encounter Details Date Type Department Care Team Description 10/16/2021 Refill [facility] Froylan Louise Ra, MD Medication Refill [address] [address] Social History Tobacco Use [...] containing 4 or more times a w [place] 05/25/2021 alcohol? How many drinks containing [...] or relatives? How often do you attend denominational or Patient refused 2020 jew services? Do you belong to any clubs or Yes 05/25/2021 organizations such as denominational groups, unions, fraternal or athletic groups, or [...] / COVID-19? documented as of this encounter Miscellaneous Notes Telephone Encounter - Froylan Louise MD - 10/17/2021 8:32 AM CDT documented in this encounter Plan of Treatment Upcoming Encounters Date Type Specialty Care Team Description 05/20/2022 Lab Lab documented as of this encounter Visit Diagnoses Diagnosis Insomnia, unspecified type documented in this encounter Care Teams Screen Operator Relationship Specialty Start Date End Date Froylan Louise MD PCP - General Family Practice 02/22/14 Froylan Louise MD Assigned PCP 03/13/14 2 Esthela Corea, RN Personal Advocate & Liaison Family Medicine 10/16 (PAL) documented as of this encounter
--- OUTSIDE RECORDS SUMMARY | 2022-05-15 22:16 | XMS_ITS | Encounter Summary ---
:1955 Author Organization [facility] Address [address] [place] [address] Care Team Providers Name Role Phone Froylan Louise MD Primary Care Provider Unavailable Froylan Louise MD Unavailable Unavailable Esthela Corea RN Unavailable Unavailable Reason for Visit Reason Comments Medication Refill Encounter Details Date Type Department Care Team Description 08/27/2021 Refill [facility] Froylan Louise Ra, MD Medication Refill [address] [address] Social History Tobacco Use [...] containing 4 or more times a w [place] 05/25/2021 alcohol? How many drinks containing alcohol [...] or relatives? How often do you attend hinduism or Patient refused 2020 congregation services? Do you belong to any clubs or Yes 05/25/2021 organizations such as hinduism groups, unions, fraternal or athletic groups, or [...] with No / Unsure 08/01/2021 3:39 PM MANAGER MILITARY someone who was confirmed or suspected to have Coronavirus / COVID-19? documented as of this encounter Plan of Treatment Upcoming Encounters Date Type Specialty Care Team Description 05/20/2022 Lab Lab documented as of this encounter Visit Diagnoses Diagnosis H/O ulcerative colitis Personal history of other diseases of di gestive system documented in this encounter Care Teams Large Sheetfed Press Operator Relationship Specialty Start Date End Date Froylan Louise MD PCP - General Family Practice 02/22/14 Froylan Louise MD Assigned PCP 03/13/14 2 Esthela Corea, RN Personal Advocate & Liaison Family Medicine 10/16 (PAL) documented as of this encounter
--- OUTSIDE RECORDS SUMMARY | 2022-05-15 22:17 | XMS_ITS | Encounter Summary ---
:1955 Author Organization [place] Address [address] [place] [address] Care Team Providers Name Role Phone Froylan Louise MD Primary Care Provider Unavailable Froylan Louise MD Unavailable Unavailable Esthela Corea RN Unavailable Unavailable Reason for Visit Reason Onset Date Comments Anticoagulation 03/27/2021 Encounter Details Date Type Department Care Team Description 03/27/[address] [facility] Froylan Louise Ra, MD [address] [address] Social History Tobacco [...] containing 4 or more times a w [place] 05/25/2021 alcohol? How many drinks containing alcohol [...] or relatives? How often do you attend hindu or Patient refused 2020 scientologist services? Do you belong to any clubs or Yes 05/25/2021 organizations such as hindu groups, unions, fraternal or athletic groups, or [...] been in contact with No / Unsure 03/22/2021 3:20 PM CDT someone who was confirmed or suspected to have Coronavirus / COVID-19? documented as of this encounter Miscellaneous Notes Telephone Encounter - Setvo Thorne RN - 04/02/2021 10:07 AM CDT Spoke with patient, he states he will just stick with the warfarin. Rosmery Thorne RN [facility] [place], [facility] Telephone Encounter - Stevo Thorne RN - 03/28/2021 11:19 AM CDT Detailed message left for Virgil informing of message below. Advised to call [facility] back with preferred plan or to MyChart PCP - whichever is most convenient. Rosmery Thorne RN [facility] [place], [facility] Telephone Encounter - Froylan Louise MD - 03/28/2021 8:42 AM CDT With the patient high risk with extensive clotting and recurrent DVT with anticardiolipin antibodiesI do not think he is able to appropriately use DOAC for prophylaxis but would be better off with Coumadin based on that history. We could have him follow-up with hematology for their opinion as they may have different opinion. We can do Econsult with them if patient is ok with me running his case by them. Telephone Encounter - Stevo Thorne RN - 03/27/2021 8:44 AM CDT Spoke with patient about his most recent INR and how his INRs seem to be quite labile. He asked about the possibility of going off of warfarin at some point, I advised him that it appears he is on lifelong therapy. Due to this, he expressed a lot of interest in a DOAC and seeing if this would be a feasible alternative for him. Please advise. Rosmery Thorne RN [facility] [place], [facility], [facility] documented in this encounter Plan of Treatment Upcoming Encounters Date Type Specialty Care Team Description 05/20/2022 Lab Lab documented as of this encounter Visit Diagnoses Not on filedocumented in this encounter Care Teams Blanchard Grinder Operator Relationship Specialty Start Date End Date Froylan Louise MD PCP - General Family Practice 02/22/14 Froylan Louise MD Assigned PCP 03/13/14 2 Esthela Corea RN Personal Advocate & Liaison Family Medicine 10/16 (PAL) documented as of this encounter
--- OUTSIDE RECORDS SUMMARY | 2022-05-15 22:17 | XMS_ITS | Encounter Summary ---
:1955 Author Organization [facility] Address [address] [place] [address] Care Team Providers Name Role Phone Froylan Louise MD Primary Care Provider Unavailable Froylan Louise MD Unavailable Unavailable Esthela Corea RN Unavailable Unavailable Encounter Details Date Type Department Care Team Description 08/01/2021 [facility] Chr onic deep vein thrombosis (DVT) of lower extremity, unspecified laterality, unspecified vein (H); [facility] current use of ant icoagulant therapy [address] [place] [address] Social History Tobacco Use [...] containing 4 or more times a w [place]a dee-ni' 05/25/2021 alcohol? How many drinks containing alcohol [...] you attend jewish or Patient refused 2020 jehovah's witness services? [...] with No / Unsure 08/01/2021 3:39 PM WAREHOUSE LABORER someone who was confirmed or suspected to have Coronavirus / COVID-19? documented as of this encounter Plan of Treatment Upcoming Encounters Date Type Specialty Care Team Description 05/20/2022 Lab Lab documented as of this encounter Procedures Procedure Name Priority Date/Time Associated Diagnosis Comme nts INR POINT OF CARE Routine 08/01/2021 3:40 PM Chronic deep vein Results for this WAREHOUSE LABORER thrombosis (DVT) of procedur e are in lower extremity, the results unspecified section. laterality, unspecified vein (H) [facility] current use of anticoagulant therapy documented in this encounter Results (ABNORMAL) INR point of care (08/01/2021 3:40 PM WAREHOUSE LABORER) P athologist Signature INR 2.4 (H) 0.9 - 1.1 08/01/2021 [facility] 3:45 PM WAREHOUSE LABORER Specimen Anatomical Collection Method / Collection Time Recei lindy Time (Source) Location / Volume Laterality Blood BLOOD SPECIMEN / Venipuncture / 08/01/2021 3:40 2021 3:40 Unknown Unknown PM WAREHOUSE LABORER PM WAREHOUSE LABORER Narrative [facility] - 08/01/2021 3:45 PM WAREHOUSE LABORER This test is intended for monitoring Cou madin therapy. Results are not accurate in patients with prolonged INR due to facto r deficiency. Froylan Louise MD LAB - BLOOD ORDERABLES Performing Organization Address City/State/ZIP Code Phon e [place] [address] Lab [address] [facility] Lab (no room number, 1st floor of clinic) [place] [address], [phone] [facility] [address] [facility] Lab (no room number, 1st floor of clinic) documented in this encounter Visit Diagnoses Diagnosis Chronic deep vein thrombosis (DVT) of lo wer extremity, unspecified laterality, unspecified vein (H) [facility] current use of anticoagulant t herapy documented in this encounter Care Teams Continuous Wave Operator Relationship Specialty Start Date End Date Froylan Louise MD PCP - General Family Practice 02/22/14 Froylan Louise MD Assigned PCP 03/13/14 2 Esthela Corea RN Personal Advocate & Liaison Family Medicine 10/16 (PAL) documented as of this encounter
--- OUTSIDE RECORDS SUMMARY | 2022-05-15 22:17 | XMS_ITS | Encounter Summary ---
:1955 Author Organization [place] Address [address] [place] [address] Care Team Providers Name Role Phone Froylan Louise MD Primary Care Provider Unavailable Froylan Louise MD Unavailable Unavailable Esthela Corea RN Unavailable Unavailable Encounter Details Date Type Department Care Team Description 05/25/2021 [facility] Chr onic deep vein thrombosis (DVT) of lower extremity, unspecified laterality, unspecified vein (H); [facility] care home current use of ant icoagulant therapy [address] [place] [address] Social History Tobacco Use [...] containing 4 or more times a w [place] 05/25/2021 alcohol? How many drinks containing alcohol [...] or relatives? How often do you attend sikhism or Patient refused 2020 jew services? Do you belong to any clubs or Yes 05/25/2021 organizations such as sikhism groups, unions, fraternal or athletic groups, or [...] been in contact with No / Unsure 05/25/2021 2:49 PM WET MACHINE CUTTER someone who was confirmed or suspected to have Coronavirus / COVID-19? documented as of this encounter Plan of Treatment Upcoming Encounters Date Type Specialty Care Team Description 05/20/2022 Lab Lab documented as of this encounter Procedures Procedure Name Priority Date/Time Associated Diagnosis Comme nts INR POINT OF CARE Routine 05/25/2021 4:28 PM Chronic deep vein Results for this WET MACHINE CUTTER thrombosis (DVT) of procedur e are in lower extremity, the results unspecified section. laterality, unspecified vein (H) care home current use of anticoagulant therapy documented in this encounter Results (ABNORMAL) INR point of care (05/25/2021 4:28 PM WET MACHINE CUTTER) P athologist Signature INR 2.4 (H) 0.9 - 1.1 05/25/2021 [facility] 4:35 PM WET MACHINE CUTTER Specimen Anatomical Collection Method Collection Time Receive d Time (Source) Location / / Volume Laterality Blood CAPILLARY BLOOD / Capillary / 05/25/2021 4:28 PM 1208/2020 4:28 Unknown Unknown WET MACHINE CUTTER PM WET MACHINE CUTTER Narrative [facility] - 05/25/2021 4:35 PM WET MACHINE CUTTER This test is intended for monitoring Cou madin therapy. Results are not accurate in patients with prolonged INR due to facto r deficiency. Froylan Louise MD LAB - BLOOD ORDERABLES Performing Organization Address City/State/ZIP Code Phon e Number [place] [address] Lab [address] [facility] Lab (no room number, 1st floor of clinic) [place] [address], [facility] [address] [facility] Lab (no room number, 1st floor of clinic) documented in this encounter Visit Diagnoses Diagnosis Chronic deep vein thrombosis (DVT) of lo wer extremity, unspecified laterality, unspecified vein (H) care home current use of anticoagulant t herapy documented in this encounter Care Teams Clinical Resource Coordinator Relationship Specialty Start Date End Date Froylan Louise MD PCP - General Family Practice 02/22/14 Froylan Louise MD Assigned PCP 03/13/14 2 Esthela Corea RN Personal Advocate & Liaison Family Medicine 10/16 (PAL) documented as of this encounter
--- OUTSIDE RECORDS SUMMARY | 2022-05-15 22:17 | XMS_ITS | Encounter Summary ---
:1955 Author Organization [facility] Address [address] [place] [address] Care Team Providers Name Role Phone Froylan Louise MD Primary Care Provider Unavailable Froylan Louise MD Unavailable Unavailable Esthela Corea RN Unavailable Unavailable Reason for Visit Reason Onset Date Comments Refill Request 04/20/2021 lisinopril-hydrochlo rothiazide (ZESTORETIC) 20-25 MG tablet Encounter Details Date Type Department Care Team Description 04/20/2021 Refill [facility] Froylan Louise Ra, Refill Request Chhaya VILLASEÑOR (lisinopril-hydrochlorot [id number] [facility] hiazide (ZESTORETIC) [place] [address] 20-25 MG tablet) [phone] Social History Tobacco Use Types Packs/Day Years [...] or relatives? How often do you attend hoahaoism or Patient refused 2020 tenriism services? Do you belong to any clubs or Yes 05/25/2021 organizations such as hoahaoism groups, unions, fraternal or athletic groups, or [...] been in contact with No / Unsure 04/13/2021 3:38 PM CDT someone who was confirmed or suspected to have Coronavirus / COVID-19? documented as of this encounter Miscellaneous Notes Telephone Encounter - Arleen Esparza RN - 04/20/2021 11:21 AM CDT Patient given a 6 month supply of medication on 01.12.21. Refusing refill request and closing encounter. Arleen Esparza RN on 04/20/2021 at 11:21 AM documented in this encounter Plan of Treatment Upcoming Encounters Date Type Specialty Care Team Description 05/20/2022 Lab Lab documented as of this encounter Visit Diagnoses Diagnosis Benign essential hypertension Essential hypertension, benign documented in this encounter Care Teams Sales Floor Associate Relationship Specialty Start Date End Date Froylan Louise MD PCP - General Family Practice 02/22/14 Froylan Louise MD Assigned PCP 03/13/14 2 Esthela Corea, RN Personal Advocate & Liaison Family Medicine 10/16 (PAL) documented as of this encounter
--- OUTSIDE RECORDS SUMMARY | 2022-05-15 22:17 | XMS_ITS | Encounter Summary ---
:1955 Author Organization [place] Address [address] [place] [address] Care Team Providers Name Role Phone Froylan Louise MD Primary Care Provider Unavailable Froylan Louise MD Unavailable Unavailable Esthela Corea RN Unavailable Unavailable Encounter Details Date Type Department Care Team Description 05/07/2021 Travel Social History Tobacco Use Types Packs/Day [...] you attend mandaen or Patient refused 2020 zoroastrian services? Do [...] been in contact with No / Unsure 05/07/2021 3:18 PM ENCODING CLERK someone who was confirmed or suspected to have Coronavirus / COVID-19? documented as of this encounter Plan of Treatment Upcoming Encounters Date Type Specialty Care Team Description 05/20/2022 Lab Lab documented as of this encounter Visit Diagnoses Not on filedocumented in this encounter Care Teams Jigmaker Relationship Specialty Start Date End Date Froylan Louise MD PCP - General Family Practice 02/22/14 Froylan Louise MD Assigned PCP 03/13/14 2 Esthela Corea, RN Personal Advocate & Liaison Family Medicine 10/16 (PAL) documented as of this encounter
--- OUTSIDE RECORDS SUMMARY | 2022-05-15 22:17 | XMS_ITS | Encounter Summary ---
:1955 Author Organization [place] Address [facility] [place] [address] Care Team Providers Name Role Phone Froylan Louise MD Primary Care Provider Unavailable Froylan Louise MD Unavailable Unavailable Esthela Corea RN Unavailable Unavailable Encounter Details Date Type Department Care Team Description 04/04/2021 Hospital Encounter [facility] Wound Uriel Nuñez MD Open wound Clinic [place] [address] [place] [address] [place] [address] [phone] Social History Tobacco Use Types Packs/Day Years Used Date Smoking Tobacco: Former Cigarettes 2 25 Quit : 08/04/2006 Smokeless Tobacco: Never Comments: 2004 Alcohol Use Standard Drinks/Week Comments Yes 0 (1 standard drink = 0.6 oz pure alcoho l) 4 BEERS A day Alcohol Habits Answer Date Recorded How often do you have a drink containing 4 or more times a w la posta 05/25/2021 alcohol? How many drinks containing alcohol [...] you attend jain or Patient refused 2020 pentecostalism services? Do [...] been in contact with No / Unsure 04/04/2021 2:11 PM CDT someone who was confirmed or suspected to have Coronavirus / COVID-19? 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 with INR goal of 2.0-3.0 albuterol (PROAIR INHALE 2 PUFFS 25.5 g 3 02/19/202108/2020 HFA/PROVENTIL HFA/VENTOLIN BY MOUTH EVERY 6 HFA) 108 (90 Base) MCG/ACT HOURS NEEDED inhalerIndications: Mild FOR WHEEZE OR persistent asthma, FOR SHORTNESS OF uncomplicated BREATH amoxicillin-clavulanate Take 1 tablet by 10 tablet 0 202005/25/2021 (AUGMENTIN) 875-125 MG mouth 2 times tabletIndications: Open daily knee wound, left, initial encounter B Complex Vitamins (VITAMIN Take 1 capsule 0 05/25/2021 B COMPLEX PO) by mouth every morning cyanocobalamin (VITAMIN Take 1,000 mcg 0 05/25/2021 B-12) 1000 MCG tablet by mouth every morning gabapentin (NEURONTIN) 300 Take 1 capsule 90 capsule 1 01/1905/25/2021 MG capsuleIndications: Open (300 mg) by knee wound, left, initial mouth 3 times encounter daily hydrochlorothiazide Take 25 mg by 0 (HYDRODIURIL) 25 MG tablet mouth every morning lactobacillus rhamnosus, Take 1 packet by 0 05/25/2021 GG, (CULTURELL KIDS) packet mouth 2 times daily lisinopril-hydrochlorothiaz Take 1 tablet by 90 tablet 1 05/25/2021 breezy (ZESTORETIC) 20-25 MG mouth daily tabletIndications: Benign essential hypertension loperamide (IMODIUM) 2 MG TAKE 3-4 480 capsule 1 1 05/24/2021 capsuleIndications: H/O CAPSULES (6-8 ulcerative colitis MG) BY MOUTH 3 TIMES DAILY NEEDED FOR DIARRHEA polyethylene glycol Take 17 g by 510 g 1 01/18/202108/2020 (MIRALAX) 17 GM/Dose mouth daily powderIndications: Open knee wound, left, initial encounter senna-docusate Take 1 tablet by 60 tablet 0 01/18/2021 12/08/2020 (SENOKOT-S/PERICOLACE) mouth 2 times 8.6-50 MG daily tabletIndications: Open knee wound, left, initial encounter sildenafil (VIAGRA) 50 MG Take 0.5-1 6 tablet 3 06/13/2017 05/25/2021 tabletIndications: Erectile tablets (25-50 dysfunction, unspecified mg) by mouth erectile dysfunction type daily as needed sulfaSALAzine (AZULFIDINE) Take 1,000 mg by 0 04/202105/25/2021 500 MG tablet mouth 2 times daily (2 X 500 mg) terazosin (HYTRIN) 2 MG TAKE 1 CAPSULE 90 capsule 1 02/20/20 21 05/24/2021 capsuleIndications: Benign BY MOUTH prostatic hyperplasia with EVERYDAY AT lower urinary tract BEDTIME symptoms, symptom details unspecified TRELEGY ELLIPTA 100-62.5-25 INHALE 1 PUFF BY 180 each 3 05/25/2021 MCG/INH oral MOUTH EVERY DAY inhalerIndications: Moderate persistent asthma, uncomplicated triamcinolone (KENALOG) 0.1 APPLY TO 30 g 1 01/10/20 21 04/19/2021 % external AFFECTED AREA creamIndications: [place] TWICE A DAY planus vitamin D3 Take 1 capsule 0 11/30/2021 (CHOLECALCIFEROL) 250 mcg by mouth every (36556 units) capsule morning warfarin ANTICOAGULANT TAKE 5MG TABLET 78 tablet 1 10/27/19 21 04/19/2021 (COUMADIN) 7.5 MG ON EVERY WED AND tabletIndications: Acute 7.5MG TABLET ON deep vein thrombosis (DVT) ALL OTHER DAYS of proximal vein of both OF THE WEEK. lower extremities (H) zolpidem ER (AMBIEN CR) TAKE 1 TABLET BY 30 tablet 0 202005/24/2021 12.5 MG CR MOUTH AT BEDTIME tabletIndications: NEEDED FOR Insomnia, unspecified type SLEEP documented as of this encounter Progress Notes Uriel Nuñez MD - 04/04/2021 3:49 PM CDT [facility] [place] Progress Note Subject: Virgil Christine left knee wound closed Patient Active Problem List Diagnosis ??? Anticardiolipin antibody positive ??? Mild persistent asthma ??? Health Long Term ? ? Hyperlipidemia LDL goal <130 ??? Personal history of DVT (deep vein thrombosis) ??? Status post unicompartmental knee replacement, right ??? Postthrombotic syndrome ??? Advanced directives, counseling/discussion (ACP) ??? Elevated fasting glucose ??? S/P colectomy ??? Venous stasis ulcer, right ??? Other ulcerative colitis without complication (H) ??? Long-term (current) use of anticoagulants [Z79.01] ??? Chronic deep vein thrombosis (DVT) of lower extremity, unspecified laterality, unspecified vein (H) ??? 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 Anal fistula ??? Anal stenosis ??? Open knee wound, left, initial encounter ??? Morbid obesity (H) Past Medical History: Diagnosis Date ??? Antiplatelet [...] Unspecified hemorrhoids without mention of complication Hemorrhoids Exam: There were no vitals taken for this visit. Closed left knee wound Impression: Closed knee wound Plan: Follow-up as needed Uriel Nuñez MD on 04/04/2021 at 3:49 PM No images are attached to the encounter. documented in this encounter Plan of Treatment Upcoming Encounters Date Type Specialty Care Team Description 05/20/2022 Lab Lab documented as of this encounter Visit Diagnoses Diagnosis Open wound Open wound(s) (multiple) of unspecified site(s), without mention of complication documented in this encounter Care Teams Teacher Of [employer] Imp[employer] Relationship Specialty Start Date End Date Froylan Louise MD PCP - General Family Practice 02/22/14 Froylan Louise MD Assigned PCP 03/13/14 2 Esthela Corea, RN Personal Advocate & Liaison Family Medicine 10/16 (PAL) documented as of this encounter
--- OUTSIDE RECORDS SUMMARY | 2022-05-15 22:17 | XMS_ITS | Encounter Summary ---
:1955 Author Organization [place] Address Counts include 234 beds at the [facility] [place] [address] Care Team Providers Name Role Phone Froylan Louise MD Primary Care Provider Unavailable Froylan Louise MD Unavailable Unavailable Esthela Corea RN Unavailable Unavailable Reason for Visit Reason Comments Physical Encounter Details Date Type Department Care Team Description 05/25/2021 Office Visit [facility] Froylan Louise g eneral medical examination at a health care facility (Primary Dx); Clinic Chhaya Dubose MD Benign essential hypertensio n; [address] [facility] Benign prostatic hyperplasia with lower urinary tract symptoms, symptom details unspecified; [place], [place] Essential hype rtension; [id number] Postthrombotic syndrome; [phone] Chronic deep ve in thrombosis (DVT) of lower extremity, unspecified laterality, unspecified vein (H); Anticardiolipin antibody positive; Hyperlipidemia LDL goal <130; Mild persistent asthma without complication; Morbid obesity (H); Other ulcerativ e colitis without complication (H); Screening for p rostate cancer; Night sweats; Moderate persis tent asthma, uncomplicated; Need for immuni zation against influenza Social History Tobacco Use Types Packs/Day Years Used Date Smoking Tobacco: Former Cigarettes 2 25 Quit : 08/04/2006 Smokeless Tobacco: Never Comments: 2004 Alcohol Use Standard Drinks/Week Comments Yes 0 (1 standard drink = 0.6 oz pure alcoho l) 4 BEERS A day Alcohol Habits Answer Date Recorded How often do you have a drink containing 4 or more times a w kletsel dehe wintun 05/25/2021 alcohol? How many drinks containing alcohol [...] or relatives? How often do you attend amish or Patient refused 2020 protestant services? Do you belong to any clubs or Yes 05/25/2021 organizations such as amish groups, unions, fraternal or athletic groups, or [...] with No / Unsure 05/25/2021 2:49 PM RU[employer] REPAIRER someone who was confirmed or suspected to have Coronavirus / COVID-19? documented as of this encounter Last Filed Vital Signs Vital Sign Reading Time Taken Comments Blood Pressure 126/76 05/25/2021 3:14 PM RU[employer] REPAIRER Pulse 59 05/25/2021 3:14 PM RU[employer]ER [employer] REPAIRER Temperature 36.3 ??C (97.4 ??F) 05/25/2021 3:14 PM RU[employer]ER [employer] REPAIRER Respiratory Rate 18 05/25/2021 3:14 PM RU[employer]ER [employer] REPAIRER Oxygen Saturation 99% 05/25/2021 3:14 PM RU[employer]ER [employer] REPAIRER Inhaled Oxygen Concentration - - Weight 117 kg (258 lb) 05/25/2021 3:14 PM RU[employer]ER [employer] REPAIRER Height 182.9 cm (6') 05/25/2021 3:14 PM RU[employer]ER [employer] REPAIRER Body Mass Index 34.99 05/25/2021 3:14 PM RU[employer]ER [employer] REPAIRER documented in this encounter Patient Instructions Patient InstructionsAmee Wei CMA - 05/25/2021 3:20 PM CST Increase terazosin to 5 mg daily ER [employer]OES REPAIRER documented in this encounter Progress Notes Esthela Corea RN - 05/25/2021 3:20 PM CST Pre-Visit Planning Next 5 appointments (look out 90 days) May 25, 2021 3:20 PM (Arrive by 2:55 PM) Adult Preventative Visit with Froylan Louise MD [facility] ([facility] ) [address] [facility] [address] Appointment Notes for this encounter: PX Questionnaires Reviewed/AssignedNeeds ACT Unable to reach. Left voicemail. Advised patient to call clinic back at [phone] Esthela Corea RN . ER [employer]OES REPAIRER Froylan Louise MD - 05/25/2021 3:20 PM CST SUBJECTIVE: CC: Virgil Christine is an 65 year old male who presents for preventative health visit. Patient has been advised of split billing requirements and indicates understanding: Yes Healthy Habits: Getting at least 3 servings of Calcium per day: Yes Bi-annual eye exam: Yes Dental care twice a year: NO Sleep apnea or symptoms of sleep apnea: Sleep apnea Diet: Low salt Frequency of exercise: 2-3 days/week Duration of exercise: 15-30 minutes Taking medications regularly: Yes PHQ-2 Total Score: 0 Additional concerns today: No Patient with history of DVT in 2013 [...] as well as terazosin. BPH on terazosin. Today's PHQ-2 Score: PHQ-2 (??1998 [facility]) 05/25/2021 Q1: Little interest or pleasure in doing things 0 Q2: Feeling down, depressed or hopeless 0 PHQ-2 Score 0 PHQ-2 Total Score (12-17 Years)- Positive if 3 or more points; Administer PHQ-A if positive - Q1: Little interest or pleasure in doing things Not at all Q2: Feeling down, depressed or hopeless Not at all PHQ-2 Score 0 Abuse: Current or Past(Physical, Sexual or Emotional)- No Do you feel safe in your environment? Yes Social History Tobacco Use ??? Smoking status: Former Smoker Packs/day: 2.00 Years: 25.00 Pack years: 50.00 Types: Cigarettes Quit date: 08/04/2006 Years since quittin.8 ??? Smokeless tobacco: Never Used ??? Tobacco comment: 2004 Substance Use Topics ??? Alcohol use: Yes Comment: 4 BEERS A day Alcohol Use 05/25/2021 Prescreen: >3 drinks/day or >7 drinks/week? Yes Prescreen: >3 drinks/day or >7 drinks/week? - AUDIT SCORE 8 Last PSA: PSA Date Value Ref Range Status 05/26/2020 0.37 0 - 4 ug/L Final Comment: Assay Method: Chemiluminescence using Siemens Adams analyzer Reviewed orders with patient. Reviewed health maintenance and updated orders accordingly - Yes Reviewed and updated as needed this visit by clinical staff Tobacco Allergies Meds Problems Med Hx Surg Hx Fam Hx Soc Hx Reviewed and updated as needed this visit by Provider Tobacco Allergies Meds Problems Med Hx Surg Hx Fam Hx Soc Hx Review of Systems Constitutional: Negative for chills and fever. HENT: Positive for sore throat. Negative for congestion, ear pain and hearing loss. Eyes: Negative for pain and visual disturbance. Respiratory: Negative for cough and shortness of breath. Cardiovascular: Positive for peripheral edema. Negative for chest pain. Gastrointestinal: Positive for diarrhea. Negative for abdominal pain, constipation, heartburn and hematochezia. Genitourinary: Negative for dysuria, frequency, genital sores, hematuria, impotence, penile discharge and urgency. Musculoskeletal: Positive for arthralgias and joint swelling. Skin: Negative for rash. Neurological: Positive for headaches. Negative for dizziness, weakness and paresthesias. Psychiatric/Behavioral: The patient is not nervous/anxious. OBJECTIVE: BP 126/76 Pulse 59 Temp 97.4 ??F (36.3 ??C) (Tympanic) Resp 18 Ht 1.829 m (6') Wt 117 kg (258 lb) SpO2 99% BMI 34.99 kg/m?? Physical Exam GENERAL: alert, no distress and over weight EYES: Eyes grossly normal to inspection, PERRL and conjunctivae and sclerae normal HENT: ear canals and TM's normal, nose and mouth without ulcers or lesions NECK: no adenopathy, no asymmetry, masses, or scars and thyroid normal to palpation RESP: lungs clear to auscultation - no rales, rhonchi or wheezes CV: regular rate and rhythm, normal S1 S2, no S3 or S4, no murmur, click or rub, no peripheral edemaand peripheral pulses strong ABDOMEN: soft, nontender, no hepatosplenomegaly, no masses and bowel sounds normal MS: no gross musculoskeletal defects noted, no edema SKIN: left buttock with mild erythema and firm indurated skin without fluctuance, skin openings present without discharge NEURO: Normal strength and tone, mentation intact and speech normal PSYCH: mentation appears normal, affect normal/bright Diagnostic Test Results: Labs reviewed in Epic ASSESSMENT/PLAN: ICD-10-CM 1. Routine general medical examination at a health care facility Z00.00 2. Benign essential hypertension I10 REVIEW OF HEALTH MAINTENANCE PROTOCOL ORDERS lisinopril-hydrochlorothiazide (ZESTORETIC) 20-25 MG tablet 3. Benign prostatic hyperplasia with lower urinary tract symptoms, symptom details unspecified N40.1REVIEW OF HEALTH MAINTENANCE PROTOCOL ORDERS terazosin (HYTRIN) 5 MG capsule 4. Essential hypertension I10 REVIEW OF HEALTH MAINTENANCE PROTOCOL ORDERS Hemoglobin A1c terazosin (HYTRIN) 5 MG capsule 5. Postthrombotic syndrome I87.009 REVIEW OF HEALTH MAINTENANCE PROTOCOL ORDERS 6. Chronic deep vein thrombosis (DVT) of lower extremity, unspecified laterality, unspecified vein (H) I82.509 7. Anticardiolipin antibody positive R76.0 8. Hyperlipidemia LDL goal <130 E78.5 Lipid panel reflex to direct LDL Non-fasting CANCELED: Lipid panel reflex to direct LDL Fasting 9. Mild persistent asthma without complication J45.30 10. Morbid obesity (H) E66.01 11. Other ulcerative colitis without complication (H) K51.80 12. Screening for prostate cancer Z12.5 PSA, screen 13. Night sweats R61 Comprehensive metabolic panel (BMP + Alb, Alk Phos, ALT, AST, Total. Bili, TP) CBC with platelets CRP, inflammation UA reflex to Microscopic - lab collect 14. Moderate persistent asthma, uncomplicated J45.40 Jezcuxfgkda-Frfkitadp-Xyxduzwztf (TRELEGY ELLIPTA) 100-62.5-25 MCG/INH oral inhaler 15. Need for immunization against influenza Z23 COVID-19,PF,MODERNA (18+ YRS BOOSTER .25ML) Patient has been advised of split billing requirements and indicates understanding: Yes COUNSELING: Reviewed preventive health counseling, as reflected in patient instructions Estimated body mass index is 34.99 kg/m?? as calculated from the following: Height as of this encounter: 1.829 m (6'). Weight as of this encounter: 117 kg (258 lb). Weight management plan: Discussed healthy diet and exercise guidelines He reports that he quit smoking about 14 years ago. His smoking use included cigarettes. He has a 50.00 pack-year smoking history. He has never used smokeless tobacco. Counseling Resources: ATP IV Guidelines Pooled Cohorts Equation Calculator FRAX Risk Assessment ICSI Preventive Guidelines Dietary Guidelines for Americans, 2009 USDA's MyPlate ASA Prophylaxis Lung CA Screening Froylan Louise MD [facility] ER [employer] AND [employer]OES REPAIRER documented in this encounter Plan of Treatment Upcoming Encounters Date Type Specialty Care Team Description 05/20/2022 Lab Lab documented as of this encounter Procedures Procedure Name Priority Date/Time Associated Diagnosis Comme nts HEMOGLOBIN A1C Routine 05/25/2021 7:59 Essential hypertension Results for this PM [employer] REPAIRER procedure are i n the results section. URINE MACROSCOPIC Routine 05/25/2021 4:40 Night sweats Results for this WITH REFLEX TO MICRO PM [employer] REPAIRER procedu re are in the results section. PROSTATE SPECIFIC Routine 05/25/2021 4:36 Screening for prosta te Results for this ANTIGEN SCREEN PM RU[employer] REPAIRER cancer procedure are in the results section. LIPID REFLEX TO Routine 05/25/2021 4:36 Hyperlipidemia LDL Res ults for this DIRECT LDL PANEL PM RU[employer]ER [employer] REPAIRER goal <130 procedure a re in the results section. COMPREHENSIVE Routine 05/25/2021 4:36 Night sweats Results for this METABOLIC PANEL PM [employer] REPAIRER procedure ar e in the results section. CBC WITH PLATELETS Routine 05/25/2021 4:36 Night sweats Result s for this PM [employer] REPAIRER procedure are i n the results section. CRP INFLAMMATION Routine 05/25/2021 4:27 Night sweats Results for this PM [employer] REPAIRER procedure are i n the results section. documented in this encounter Results (ABNORMAL) Hemoglobin A1c (05/25/2021 7:59 PM RU[employer] REPAIRER) [facility] Signature Hemoglobin A1C 5.8 (H) 0.0 - 5.6 05/25/2021 [facility] % 8:33 PM RU[employer]ER [employer] REPAIRER Comment: Normal <5.7% Prediabetes 5.7-6.4% ?? Diabetes 6.5% or higher Note: Adopted from ADA consensus guideli yoseph. Specimen Anatomical Collection Method / Collection Time Recei lindy Time (Source) Location / Volume Laterality Blood STRUCTURE OF RIGHT Venipuncture / 05/25/2021 7:59 12/0 08/2020 7:59 UPPER LIMB / Unknown PM [employer] REPAIRER PM [employer] REPAIRER Unknown Froylan Louise MD LAB - BLOOD ORDERABLES Performing Organization Address City/State/ZIP Code [place] [address] Lab [address] [facility] Lab (no room number, 1st floor of clinic) [place] [address], [phone] [facility] [address] [facility] Lab (no room number, 1st floor of clinic) UA reflex to Microscopic - lab collect (05/25/2021 4:40 PM RU[employer]ER [employer] REPAIRER) [facility] gist Method Time Signature Color Urine Yellow Colorless, 05/25/2021 LABORATORY Straw, Light 4:46 PM RU[employer] REPAIRER Yellow, Yellow Appearance Urine Clear Clear 05/25/2021 [facility] Y 4:46 PM RU[employer]ER [employer] REPAIRER Glucose Urine Negative Negative 05/25/2021 LABORATORY mg/dL 4:46 PM RU[employer] REPAIRER Bilirubin Urine Negative Negative 05/25/2021 [facility] 4:46 PM RU[employer] REPAIRER Ketones Urine Negative Negative 05/25/2021 LABORATORY mg/dL 4:46 PM RU[employer] REPAIRER Specific Wilsey >=1.030 1.003 - 05/25/2021 [facility] Urine 1.035 4:46 PM RU[employer] REPAIRER Blood Urine Negative Negative 05/25/2021 [facility] 4:46 PM RU[employer]ER [employer] REPAIRER pH Urine 5.0 5.0 - 7.0 05/25/2021 [facility] 4:46 PM RU[employer]ER [employer] REPAIRER Protein Albumin Negative Negative 05/25/2021 LABORATORY Urine mg/dL 4:46 PM RU[employer]ER [employer] REPAIRER Urobilinogen 0.2 0.2, 1.0 05/25/2021 LABORATORY Urine E.U./dL 4:46 PM RU[employer] REPAIRER Nitrite Urine Negative Negative 05/25/2021 [facility] 4:46 PM RU[employer] REPAIRER Leukocyte Negative Negative 05/25/2021 LABORATORY Esterase Urine 4:46 PM RU[employer] REPAIRER Specimen Anatomical Collection Method Collection Time Receive d Time (Source) Location / / Volume Laterality Urine URINE SPECIMEN Non-blood 05/25/2021 4:40 PM 021 4:40 OBTAINED BY CLEAN Collection / RU[employer]ER [employer] REPAIRER PM [employer] REPAIRER CATCH PROCEDURE / Unknown Unknown Narrative [facility] - 05/25/2021 4:46 PM RU[employer]ER [employer] REPAIRER Microscopic not indicated Froylan Louise MD LAB - URINE ORDERABLES Performing Organization Address City/State/ZIP Code [place] [address] Lab [address] [facility] Lab (no room number, 1st floor of clinic) [place] [address], [phone] [facility] [address] [facility] Lab (no room number, 1st floor of clinic) Lipid panel reflex to direct LDL Non-fasting (05/25/2021 4:36 PM RU[employer]ER [employer] REPAIRER) [facility] gist Method Time Signature Cholesterol 175 <200 mg/dL 06/06/2021 [facility] 11:30 AM RU[employer] REPAIRER Triglycerides 135 <150 mg/dL 06/06/2021 [facility] 11:30 AM RU[employer]ER [employer] REPAIRER Direct Measure HDL 53 >=40 mg/dL 06/06/2021 [facility] 11:30 AM RU[employer]ER [employer] REPAIRER LDL Cholesterol 95 <=100 06/06/2021 [facility] Calculated mg/dL 11:30 AM RU[employer]ER [employer] REPAIRER Non HDL 122 <130 mg/dL 06/06/2021 [facility] Cholesterol 11:30 AM RU[employer] REPAIRER Patient Fasting > No 06/06/2021 [facility] RY 8hrs? 11:30 AM RU[employer]ER [employer] REPAIRER Specimen Anatomical Collection Method / Collection Time Recei lindy Time (Source) Location / Volume Laterality Blood STRUCTURE OF RIGHT Venipuncture / 05/25/2021 4:36 12/08/2020 4:36 UPPER LIMB / Unknown PM [employer] REPAIRER PM [employer] REPAIRER Unknown Narrative [facility] - 06/06/2021 11:30 AM RU[employer] REPAIRER Cholesterol Desirable: ??<200 mg/dL Triglycerides Normal: ??Less than 150 mg/dL Borderline High: ??150-199 mg/dL High: ??200-499 mg/dL Very High: ??Greater than or equal to 50 0 mg/dL Direct Measure HDL Female: ??Greater than or equal to 50 mg /dL Male: ??Greater than or equal to 40 mg/d L LDL Cholesterol Desirable: ??<100mg/dL Above Desirable: ??100-129 mg/dL Borderline High: ??130-159 mg/dL High: ??160-189 mg/dL Very High: ??>= 190 mg/dL Non HDL Cholesterol Desirable: ??130 mg/dL Above Desirable: ??130-159 mg/dL Borderline High: ??160-189 mg/dL High: ??190-219 mg/dL Very High: ??Greater than or equal to 22 0 mg/dL Froylan Louise MD LAB - BLOOD ORDERABLES Performing Organization Address [facility] Phon e Number [place] [address] [phone] LABORATORY [place], [place] [phone] [facility] [address] [place] [facility] [address] Lab (no room number, 1st floor of clinic) [facility] [place], [place] [address] [phone] PSA, screen (05/25/2021 4:36 PM RU[employer]ER [employer] REPAIRER) P athologist Signature Prostate 0.26 0.00 - 05/27/2021 [facility] Specific 4.00 ug/L 9:32 AM RU[employer]ER [employer] REPAIRER Antigen Screen Specimen Anatomical Collection Method / Collection Time Recei lindy Time (Source) Location / Volume Laterality Blood STRUCTURE OF RIGHT Venipuncture / 05/25/2021 4:36 12/0 08/2020 4:36 UPPER LIMB / Unknown PM RU[employer] REPAIRER PM [employer] REPAIRER Unknown Frolyan Louise MD LAB - BLOOD ORDERABLES Performing Organization Address City/State/ZIP Code Phon e Number [facility] [place], [place] [phone] [place] [facility] [address] [address] Lab (no room number, 1st floor of clinic) [facility] LABORAT[facility] [place], [place] [phone] [facility] [place] [address], [facility] [place] [facility] [address] Lab (no room number, 1st floor of clinic) (ABNORMAL) CBC with platelets (05/25/2021 4:36 PM RUBBER [employer] REPAIRER) [facility] gist Method Time Signature WBC Count 7.3 4.0 - 11.0 05/25/2021 [facility] 10e3/uL 4:53 PM RU[employer]ER [employer] REPAIRER RBC Count 4.25 (L) 4.40 - 05/25/2021 [facility] 5.90 4:53 PM RU[employer]ER [employer] REPAIRER 10e6/uL Hemoglobin 12.8 (L) 13.3 - 05/25/2021 [facility] 17.7 g/dL 4:53 PM RU[employer]ER [employer] REPAIRER Hematocrit 39.8 (L) 40.0 - 05/25/2021 [facility] 53.0 % 4:53 PM RU[employer]ER [employer] REPAIRER MCV 94 78 - 100 05/25/2021 [facility] fL 4:53 PM RU[employer]ER [employer] REPAIRER MCH 30.1 26.5 - 05/25/2021 [facility] 33.0 pg 4:53 PM RU[employer]ER [employer] REPAIRER MCHC 32.2 31.5 - 05/25/2021 [facility] 36.5 g/dL 4:53 PM RU[employer]ER [employer] REPAIRER RDW 14.1 10.0 - 05/25/2021 [facility] 15.0 % 4:53 PM RU[employer] REPAIRER Platelet Count 198 150 - 450 05/25/2021 [facility] 10e3/uL 4:53 PM RU[employer] REPAIRER Specimen Anatomical Collection Method / Collection Time Recei lindy Time (Source) Location / Volume Laterality Blood STRUCTURE OF RIGHT Venipuncture / 05/25/2021 4:36 12/0 08/2020 4:37 UPPER LIMB / Unknown PM [employer] REPAIRER PM [employer] REPAIRER Unknown Froylan Louise MD LAB - BLOOD ORDERABLES Performing Organization Address City/State/ZIP Code Phon e Number [facility] [place] [address] Lab [address] [facility] Lab (no room number, 1st floor of clinic) [place] [address], [facility] [address] [facility] Lab (no room number, [facility]) (ABNORMAL) Comprehensive metabolic panel (BMP + Alb, Alk Phos, ALT, AST, Total. Bili, TP) (05/25/2021 4:36 PM RU[employer]ER [employer] SHOES REPAIRER) [facility] Method Time Signature Sodium 137 133 - 144 05/27/2021 [facility] mmol/L 9:29 AM RU[employer] REPAIRER Potassium 4.1 3.4 - 5.3 05/27/2021 [facility] mmol/L 9:29 AM RU[employer] REPAIRER Chloride 105 94 - 109 05/27/2021 [facility] mmol/L 9:29 AM RU[employer]ER [employer] REPAIRER Carbon Dioxide 28 20 - 32 05/27/2021 [facility] (CO2) mmol/L 9:29 AM RU[employer] REPAIRER Anion Gap 4 3 - 14 05/27/2021 [facility] mmol/L 9:29 AM RU[employer] REPAIRER Urea Nitrogen 28 7 - 30 05/27/2021 [facility] mg/dL 9:29 AM RU[employer]ER [employer] REPAIRER Creatinine 0.95 0.66 - 05/27/2021 [facility] 1.25 mg/dL 9:29 AM RU[employer]ER [employer] REPAIRER Calcium 8.6 8.5 - 10.1 05/27/2021 [facility] mg/dL 9:29 AM RU[employer] REPAIRER Glucose 106 (H) 70 - 99 05/27/2021 [facility] mg/dL 9:29 AM RU[employer]ER [employer] REPAIRER Alkaline 76 40 - 150 05/27/2021 [facility] Phosphatase U/L 9:29 AM RU[employer]ER [employer] REPAIRER AST 16 0 - 45 U/L 05/27/2021 [facility] 9:29 AM RU[employer]ER [employer] REPAIRER ALT 32 0 - 70 U/L 05/27/2021 [facility] 9:29 AM RU[employer]ER [employer] REPAIRER Protein Total 7.3 6.8 - 8.8 05/27/2021 [facility] g/dL 9:29 AM RU[employer]ER [employer] REPAIRER Albumin 3.3 (L) 3.4 - 5.0 05/27/2021 [facility] g/dL 9:29 AM RU[employer] REPAIRER Bilirubin Total 0.9 0.2 - 1.3 05/27/2021 [facility] mg/dL 9:29 AM RU[employer]ER [employer] REPAIRER GFR Estimate 85 >60 05/27/2021 [facility] mL/min/1.7 9:29 AM RU[employer]ER [employer] REPAIRER 3m2 Comment: As of December 31, 2020, eGFR is ca lculated by the CKD-EPI creatinine equation, without race adjustment. eGFR can be inf luenced by muscle mass, exercise, and diet. The reported eGFR is an estimation only and is only applicable if the renal function is stable. Specimen Anatomical Collection Method / Collection Time Recei lindy Time (Source) Location / Volume Laterality Blood STRUCTURE OF RIGHT Venipuncture / 05/25/2021 4:36 12/0 08/2020 4:36 UPPER LIMB / Unknown PM [employer] REPAIRER PM RU[employer] REPAIRER Unknown Froylan Louise MD LAB - BLOOD ORDERABLES Performing Organization Address City/[facility] Phon e Number OX LABORATORY [place], [place] [phone] [place] [facility] [address] [place] [address] Lab (no room number, 1st floor of clinic) [facility] LABOR[facility] [place], [place] [phone] [place] [facility] [address] Lab (no room number, 1st floor of clinic) (ABNORMAL) CRP, inflammation (05/25/2021 4:27 PM RUBBER [employer] REPAIRER) Patholo gist Method Time Signature CRP Inflammation 35.0 (H) 0.0 - 8.0 05/26/2021 [facility] mg/L 5:23 PM RU[employer] REPAIRER Specimen Anatomical Collection Method / Collection Time Recei lindy Time (Source) Location / Volume Laterality Blood STRUCTURE OF RIGHT Venipuncture / 05/25/2021 4:27 08/2020 4:36 UPPER LIMB / Unknown PM RU[employer] REPAIRER PM RU[employer]ER [employer] REPAIRER Unknown Froylan Louise MD LAB - BLOOD ORDERABLES Performing Organization Address City/State/ZIP Code Phon e Number [facility] [place] [address] [phone] Lab [address] [facility], Room 3-580 documented in this encounter Visit Diagnoses Diagnosis Routine general medical examination at a health care facility - Primary Benign essential hypertension Essential hypertension, benign Benign prostatic hyperplasia with lower urinary tract symptoms, symptom details unspecified Essential hypertension Unspecified essential hypertension Postthrombotic syndrome Postphlebetic syndrome without complicat ions Chronic deep vein thrombosis (DVT) of lo wer extremity, unspecified laterality, unspecified vein (H) Anticardiolipin antibody positive Other and unspecified nonspecific immuno logical findings Hyperlipidemia LDL goal <130 Other and unspecified hyperlipidemia Mild persistent asthma without complicat ion Unspecified asthma Morbid obesity (H) Morbid obesity Other ulcerative colitis without complic ation (H) Screening for prostate cancer Special screening for malignant neoplasm of prostate Night sweats Generalized hyperhidrosis Moderate persistent asthma, uncomplicate d Unspecified asthma Need for immunization against influenza Need for prophylactic vaccination and in oculation against influenza documented in this encounter Care Teams Pantograph Watcher Relationship Specialty Start Date End Date Froylan Louise MD PCP - General Family Practice 02/22/14 Froylan Louise MD Assigned PCP 03/13/14 2 Esthela Corea, RN Personal Advocate & Liaison Family Medicine 10/16 (PAL) documented as of this encounter
--- OUTSIDE RECORDS SUMMARY | 2022-05-15 22:17 | XMS_ITS | Encounter Summary ---
:1955 Author Organization [place] Address [address] [place] [address] Care Team Providers Name Role Phone Froylan Louise MD Primary Care Provider Unavailable Froylan Louise MD Unavailable Unavailable Esthela Corea RN Unavailable Unavailable Encounter Details Date Type Department Care Team Description 06/28/2021 Travel Social History Tobacco Use Types Packs/Day Years Used Date Smoking Tobacco: Former Cigarettes 2 25 Quit : 08/04/2006 Smokeless Tobacco: Never Comments: 2004 Alcohol Use Standard Drinks/Week Comments Yes 0 (1 standard drink = 0.6 oz pure alcoho l) 4 BEERS A day Alcohol Habits Answer Date Recorded How often do you have a drink containing 4 or more times a w [place] 05/25/2021 alcohol? How many drinks containing alcohol [...] or relatives? How often do you attend bahai or Patient refused 2020 spiritism services? Do you belong to any clubs or Yes 05/25/2021 organizations such as bahai groups, unions, fraternal or athletic groups, or [...] been in contact with No / Unsure 06/28/2021 11:11 AM TIRE WRAPPER someone who was confirmed or suspected to have Coronavirus / COVID-19? documented as of this encounter Plan of Treatment Upcoming Encounters Date Type Specialty Care Team Description 05/20/2022 Lab Lab documented as of this encounter Visit Diagnoses Not on filedocumented in this encounter Care Teams Engineering Drafter Relationship Specialty Start Date End Date Froylan Louise MD PCP - General Family Practice 02/22/14 Froylan Louise MD Assigned PCP 03/13/14 2 Esthela Corea, RN Personal Advocate & Liaison Family Medicine 10/16 (PAL) documented as of this encounter
--- OUTSIDE RECORDS SUMMARY | 2022-05-15 22:17 | XMS_ITS | Encounter Summary ---
:1955 Author Organization [place] Address [address] [place] [address] Care Team Providers Name Role Phone Froylan Louise MD Primary Care Provider Unavailable Froylan Louise MD Unavailable Unavailable Esthela Corea RN Unavailable Unavailable Reason for Visit Reason Onset Date Comments Anticoagulation 04/13/2021 Encounter Details Date Type Department Care Team Description 04/13/2021 Telephone [facility] Froylan Louise Ra, MD [address] [address] Social History Tobacco Use [...] containing 4 or more times a w [place] 05/25/2021 alcohol? How many drinks containing alcohol [...] or relatives? How often do you attend religion or Patient refused 2020 anglican services? Do you belong to any clubs or Yes 05/25/2021 organizations such as religion groups, unions, fraternal or athletic groups, or [...] Telephone Encounter - Shaniqua Humphrey RN - 04/13/2021 3:59 PM CDT ANTICOAGULATION MANAGEMENT Virgil Christine 65 year old male is on warfarin with subtherapeutic INR result. (Goal INR 2.0-3.0) Recent labs: (last 7 days) 04/13/21 1540 INR 1.6* ASSESSMENT Source(s): Chart Review and Patient/Caregiver Call ??? Warfarin doses taken: Warfarin taken as instructed ??? Diet: Slight increased in greens/vitamin K in diet; plans to resume previous intake ??? New illness, injury, or hospitalization: Ongoing left knee wound - encouraged f/u next week withwound clinic if concerns persist. Patient denies any s/s of infection. Possible resolving inflammation as sx have improved over the last few weeks. ??? Medication/supplement changes: Flexeril prn ??? Signs or symptoms of bleeding or clotting: No ??? Previous INR: Therapeutic last visit; previously outside of goal range ??? Additional findings: None PLAN Recommended plan for ongoing change(s) affecting INR Dosing Instructions: Increase your warfarin dose (11.1% change) with next INR in 2 weeks. Previousmaintenance dose prior to wound tx. Summary As of 04/13/2021 Full warfarin instructions: 5 mg every Wed; 7.5 mg all other days Next INR check: 04/27/2021 Telephone call with Virgil who verbalizes understanding and agrees to plan Lab visit scheduled Education provided: Please call back if any changes to your diet, medications or how you've been taking warfarin, Monitoring for bleeding signs and symptoms, Monitoring for clotting signs and symptoms and Importance of notifying clinic for changes in medications; a sooner lab recheck maybe needed. Plan made per [facility] anticoagulation protocol Shaniqua Humphrey RN Anticoagulation Clinic 04/13/2021 Anticoagulation Episode Summary Current INR goal: 2.0-3.0 TTR: 54.8 % (11.8 mo) Target end date: Indefinite [facility] Indications Chronic deep vein thrombosis (DVT) of lower extremity unspecified laterality unspecified vein (H) [I82.509] Long-term (current) use of anticoagulants [Z79.01] [Z79.01] Comments: Anticoagulation Care Providers Provider Role Specialty Phone number Froylan Louise MD Referring Family Medicine [phone] Telephone Encounter - Arminda Toth - 04/13/2021 3:46 PM CDT Reason for Call: Other anti-coag Detailed comments: patient called requesting to speak with Diana for instructions from todays INR. Phone Number Patient can be reached at: Home number on file [phone] (home) Best Time: any Can we leave a detailed message on this number? YES Call taken on 04/13/2021 at 3:46 PM by Arminda Toth documented in this encounter Plan of Treatment Upcoming Encounters Date Type Specialty Care Team Description 05/20/2022 Lab Lab documented as of this encounter Visit Diagnoses Diagnosis Chronic deep vein thrombosis (DVT) of lo wer extremity, unspecified laterality, unspecified vein (H) - Primary [facility] current use of anticoagulant t herapy documented in this encounter Care Teams Film Loader Relationship Specialty Start Date End Date Froylan Louise MD PCP - General Family Practice 02/22/14 Froylan Louise MD Assigned PCP 03/13/14 2 Esthela Corea, RN Personal Advocate & Liaison Family Medicine 10/16 (PAL) documented as of this encounter
--- OUTSIDE RECORDS SUMMARY | 2022-05-15 22:17 | XMS_ITS | Encounter Summary ---
:1955 Author Organization [place] Address [facility] [place] [address] Care Team Providers Name Role Phone Froylan Louise MD Primary Care Provider Unavailable Froylan Louise MD Unavailable Unavailable Esthela Corea RN Unavailable Unavailable Encounter Details Date Type Department Care Team Description 05/07/2021 Anticoagulation [facility], Chronic deep vein thrombosis (DVT) of lower extremity, unspecified laterality, unspecified vein (H) (Primary Dx); Therapy Visit Anticoagulation Diana Conrad RN custodial current use of anticoagulant therapy Clinic [address] [place] [address] Social History Tobacco Use Types [...] containing 4 or more times a w [place] 05/25/2021 alcohol? How many drinks containing alcohol [...] with No / Unsure 05/07/2021 3:18 PM SKIN SPECIALIST someone who was confirmed or suspected to have Coronavirus / COVID-19? documented as of this encounter Progress Notes Diana Nielsen RN - 05/07/2021 5:24 PM CST ANTICOAGULATION MANAGEMENT Virgil Christine 65 year old male is on warfarin with supratherapeutic INR result. (Goal INR 2.0-3.0) Recent labs: (last 7 days) 05/07/21 1519 INR 3.1* ASSESSMENT Source(s): Chart Review and Patient/Caregiver Call ??? Warfarin doses taken: Warfarin taken as instructed ??? Diet: No new diet changes identified ??? New illness, injury, or hospitalization: No ??? Medication/supplement changes: Last visit he was going to be taking tumeric every other day but he states today he has not taken it at all since that conversation. However, he did start taking a b complex instead of his multivitamin which has 30 mcg of vitamin K. This is probably contributing to the supratherapeutic INR today. He plans to return to multivitamin. ??? Signs or symptoms of bleeding or clotting: No ??? Previous INR: Therapeutic last visit; previously outside of goal range ??? Additional findings: knee wound completely healed, no longer seeing wound clinic. PLAN Recommended plan for temporary change(s) affecting INR Dosing Instructions: Continue your current warfarin dose with next INR in 2 weeks Summary As of 05/07/2021 Full warfarin instructions: 5 mg every Wed; 7.5 mg all other days Next INR check: 05/25/2021 Telephone call with Virgil who verbalizes understanding and agrees to plan Check at provider office visit May 25, 2021 Education provided: Please call back if any changes to your diet, medications or how you've been taking warfarin, Importance of consistent vitamin K intake, Goal range and significance of current result and Contact [phone] with any changes, questions or concerns. Plan made per [facility] anticoagulation protocol Diana Nielsen RN Anticoagulation Clinic 05/07/2021 Anticoagulation Episode Summary Current INR goal: 2.0-3.0 TTR: 52.7 % (11.8 mo) Target end date: Indefinite Send INR reminders to: [facility] Indications Chronic deep vein thrombosis (DVT) of lower extremity unspecified laterality unspecified vein (H) [I82.509] Long-term (current) use of anticoagulants [Z79.01] [Z79.01] Comments: Anticoagulation Care Providers Provider Role Specialty Phone number Froylan Louise MD Referring Family Medicine [phone] SPECIALIST documented in this encounter Plan of Treatment Upcoming Encounters Date Type Specialty Care Team Description 05/20/2022 Lab Lab documented as of this encounter Visit Diagnoses Diagnosis Chronic deep vein thrombosis (DVT) of lo wer extremity, unspecified laterality, unspecified vein (H) - Primary custodial current use of anticoagulant t herapy documented in this encounter Care Teams Missing Persons Investigator Relationship Specialty Start Date End Date Froylan Louise MD PCP - General Family Practice 02/22/14 Froylan Louise MD Assigned PCP 03/13/14 2 Esthela Corea, RN Personal Advocate & Liaison Family Medicine 10/16 (PAL) documented as of this encounter
--- OUTSIDE RECORDS SUMMARY | 2022-05-15 22:17 | XMS_ITS | Encounter Summary ---
:1955 Author Organization [place] Address [facility] [place] [address] Care Team Providers Name Role Phone Froylan Louise MD Primary Care Provider Unavailable Froylan Louise MD Unavailable Unavailable Esthela Corea RN Unavailable Unavailable Encounter Details Date Type Department Care Team Description [facility]/25/[facility] deep vein thrombosis (DVT) of lower extremity, unspecified laterality, unspecified vein (H) (Primary Dx); Therapy Visit Anticoagulation Clin ic [place], termite control service representative current use of ant icoagulant therapy [address], [place] [address] Social History Tobacco Use Types [...] containing 4 or more times a w [place] 05/25/2021 alcohol? How many drinks containing alcohol [...] or relatives? How often do you attend mandaeism or Patient refused 2020 scientology services? Do you belong to any clubs or Yes 05/25/2021 organizations such as mandaeism groups, unions, fraternal or athletic groups, or [...] with No / Unsure 05/25/2021 2:49 PM PUBLIC RELATIONS someone who was confirmed or suspected to have Coronavirus / COVID-19? documented as of this encounter Progress Notes Stevo Thorne RN - 05/25/2021 5:18 PM CST ANTICOAGULATION MANAGEMENT Virgil Christine 65 year old male is on warfarin with therapeutic INR result. (Goal INR 2.0-3.0) Recent labs: (last 7 days) 05/25/21 1628 INR 2.4* ASSESSMENT Source(s): Chart Review and Patient/Caregiver Call ??? Warfarin doses taken: Warfarin taken as instructed ??? Diet: No new diet changes identified ??? New illness, injury, or hospitalization: No ??? Medication/supplement changes: None noted ??? Signs or symptoms of bleeding or clotting: No ??? Previous INR: Supratherapeutic ??? Additional findings: None PLAN Recommended plan for no diet, medication or health factor changes affecting INR Dosing Instructions: Continue your current warfarin dose with next INR in 4 weeks. I advised 3 week recheck but patient asked for 4 weeks. Summary As of 05/25/2021 Full warfarin instructions: 5 mg every Wed; 7.5 mg all other days Next INR check: 06/22/2021 Telephone call with Virgil who verbalizes understanding and agrees to plan Lab visit scheduled Education provided: Please call back if any changes to your diet, medications or how you've been taking warfarin Plan made per [facility] anticoagulation protocol Stevo Thorne RN Anticoagulation Clinic 05/25/2021 Anticoagulation Episode Summary Current INR goal: 2.0-3.0 TTR: 57.0 % (11.8 mo) Target end date: Indefinite Send INR reminders to: [facility] Indications Chronic deep vein thrombosis (DVT) of lower extremity unspecified laterality unspecified vein (H) [I82.509] Long-term (current) use of anticoagulants [Z79.01] [Z79.01] Comments: Anticoagulation Care Providers Provider Role Specialty Phone number Froylan Louise MD Referring Family Medicine [phone] IC RELATIONS documented in this encounter Plan of Treatment Upcoming Encounters Date Type Specialty Care Team Description 05/20/2022 Lab Lab documented as of this encounter Visit Diagnoses Diagnosis Chronic deep vein thrombosis (DVT) of lo wer extremity, unspecified laterality, unspecified vein (H) - Primary termite control service representative current use of anticoagulant t herapy documented in this encounter Care Teams Visual Training Aide Relationship Specialty Start Date End Date Froylan Louise MD PCP - General Family Practice 02/22/14 Froylan Louise MD Assigned PCP 03/13/14 2 Esthela Corea RN Personal Advocate & Liaison Family Medicine 10/16 (PAL) documented as of this encounter
--- OUTSIDE RECORDS SUMMARY | 2022-05-15 22:17 | XMS_ITS | Encounter Summary ---
:1955 Author Organization [place] Address [address] [place] [address] Care Team Providers Name Role Phone Froylan Louise MD Primary Care Provider Unavailable Froylan Louise MD Unavailable Unavailable Esthela Corea RN Unavailable Unavailable Encounter Details Date Type Department Care Team Description 04/13/2021 [facility] Chr onic deep vein thrombosis (DVT) of lower extremity, unspecified laterality, unspecified vein (H); [facility] current use of ant icoagulant therapy [address] [place] [address] Social History Tobacco Use [...] containing 4 or more times a w [place] 05/25/2021 alcohol? How many drinks containing alcohol [...] you attend samaritan or Patient refused 2020 quaker services? Do you belong to any clubs [...] Comme nts INR POINT OF CARE Routine 04/13/2021 3:40 PM Chronic deep vein Results for this CDT thrombosis (DVT) of procedur e are in lower extremity, the results unspecified section. laterality, unspecified vein (H) shelter current use of anticoagulant therapy documented in this encounter Results (ABNORMAL) INR point of care (04/13/2021 3:40 PM CDT) P athologist Signature INR 1.6 (H) 0.9 - 1.1 04/13/2021 [facility] 3:55 PM CDT Specimen Anatomical Collection Method / Collection Time Recei lindy Time (Source) Location / Volume Laterality Blood STRUCTURE OF Venipuncture / 04/13/2021 3:40 04/13/2021 3:40 FINGER OF RIGHT Unknown PM CDT PM CDT HAND / Unknown Narrative [facility] - 04/13/2021 3:55 PM CDT This test is intended for monitoring Cou madin therapy. Results are not accurate in patients with prolonged INR due to facto r deficiency. Froylan Louise MD LAB - BLOOD ORDERABLES Performing Organization Address City/State/ZIP Code [place] [address] Lab [address] [facility] Lab (no room number, 1st floor of clinic) [place] [address], [phone] [facility] [address] [facility], 1st floor of clinic) documented in this encounter Visit Diagnoses Diagnosis Chronic deep vein thrombosis (DVT) of lo wer extremity, unspecified laterality, unspecified vein (H) shelter current use of anticoagulant t herapy documented in this encounter Care Teams Kiln Repairer Relationship Specialty Start Date End Date Froylan Louise MD PCP - General Family Practice 02/22/14 Froylan Louise MD Assigned PCP 03/13/14 2 Esthela Corea RN Personal Advocate & Liaison Family Medicine 10/16 (PAL) documented as of this encounter
--- OUTSIDE RECORDS SUMMARY | 2022-05-15 22:17 | XMS_ITS | Encounter Summary ---
:1955 Author Organization [place] Address [address] [place] [address] Care Team Providers Name Role Phone Froylan Louise MD Primary Care Provider Unavailable Froylan Louise MD Unavailable Unavailable Esthela Corea RN Unavailable Unavailable Encounter Details Date Type Department Care Team Description 04/04/2021 Travel Social History Tobacco Use Types Packs/Day Years Used Date Smoking Tobacco: Former Cigarettes 2 25 Quit : 08/04/2006 Smokeless Tobacco: Never Comments: 2004 Alcohol Use Standard Drinks/Week Comments Yes 0 (1 standard drink = 0.6 oz pure alcoho l) 4 BEERS A day Alcohol Habits Answer Date Recorded How often do you have a drink containing 4 or more times a w [place] 05/25/2021 alcohol? How many drinks containing alcohol [...] you attend hinduism or Patient refused 2020 catholic services? Do you belong to any [...] filedocumented in this encounter Care Teams Manager Investment Banking Relationship Specialty Start Date End Date Froylan Louise MD PCP - General Family Practice 02/22/14 Froylan Louise MD Assigned PCP 03/13/14 2 Esthela Corea, RN Personal Advocate & Liaison Family Medicine 10/16 (PAL) documented as of this encounter
--- OUTSIDE RECORDS SUMMARY | 2022-05-15 22:17 | XMS_ITS | Encounter Summary ---
:1955 Author Organization [place] Address [facility] [place] [address] Care Team Providers Name Role Phone Froylan Louise MD Primary Care Provider Unavailable Froylan Louise MD Unavailable Unavailable Esthela Corea RN Unavailable Unavailable Reason for Visit Reason Onset Date Comments WOUND CARE 04/23/2021 Encounter Details Date Type Department Care Team Description 04/23/2021 Telephone [facility] Wound [place] Nuñez MD WOUND CARE Clinic [place] [address] [place] [address] [place] [address] [place] [id number] [phone] Social History Tobacco Use Types Packs/Day Years Used Date Smoking Tobacco: Former Cigarettes 2 25 Quit : 08/04/2006 Smokeless Tobacco: Never Comments: 2004 Alcohol Use Standard Drinks/Week Comments Yes 0 (1 standard drink = 0.6 oz pure alcoho l) 4 BEERS A day Alcohol Habits Answer Date Recorded How often do you have a drink containing 4 or more times a w [place] 05/25/2021 alcohol? How many drinks containing alcohol [...] you attend worship or Patient refused 2020 advent services? Do [...] encounter Miscellaneous Notes Telephone Encounter - Esthela Ro RN - 04/23/2021 1:40 PM CDT Called and spoke to Virgil, he is describing upper respiratory issues not correlating to his knee wound. He denies redness to his knee, denies increased swelling or pain to area. Advised Patient to follow up with Primary care doctor regarding his symptoms. He reports understanding. Telephone Encounter - Swathi Cazares - 04/23/2021 12:47 PM CDT Virgil called and said he has fever, chills, exhausted and would like a nurse to call him back at [phone]. documented in this encounter Plan of Treatment Upcoming Encounters Date Type Specialty Care Team Description 05/20/2022 Lab Lab documented as of this encounter Visit Diagnoses Not on filedocumented in this encounter Care Teams Block Saw Operator Relationship Specialty Start Date End Date Froylan Louise MD PCP - General Family Practice 02/22/14 Froylan Louise MD Assigned PCP 03/13/14 2 Esthela Corea, RN Personal Advocate & Liaison Family Medicine 10/16 (PAL) documented as of this encounter
--- OUTSIDE RECORDS SUMMARY | 2022-05-15 22:17 | XMS_ITS | Encounter Summary ---
:1955 Author Organization [place] Address [address] [place] [address] Care Team Providers Name Role Phone Froylan Louise MD Primary Care Provider Unavailable Froylan Louise MD Unavailable Unavailable Esthela Corea RN Unavailable Unavailable Reason for Visit Reason Onset Date Comments Refill Request 05/24/2021 lisinopril-hydrochlo rothiazide (ZESTORETIC) 20-25 MG tablet Encounter Details Date Type Department Care Team Description 05/24/2021 Refill [facility] Froylan Louise Ra, Refill Request Chhaya VILLASEÑOR (lisinopril-hydrochlorot [address] [facility] hiazide (ZESTORETIC) [place] [address] 20-25 MG tablet) [phone] Social History Tobacco Use Types Packs/Day Years Used Date Smoking Tobacco: Former Cigarettes 2 25 Quit : 08/04/2006 Smokeless Tobacco: Never Comments: 2004 Alcohol Use Standard Drinks/Week Comments Yes 0 (1 standard drink = 0.6 oz pure alcoho l) 4 BEERS A day Alcohol Habits Answer Date Recorded How often do you have a drink containing 4 or more times a w [place] 05/25/2021 alcohol? How many drinks containing alcohol [...] or relatives? How often do you attend confucianist or Patient refused 2020 samaritan services? Do you belong to any clubs or Yes 05/25/2021 organizations such as confucianist groups, unions, fraternal or athletic groups, or [...] with No / Unsure 05/07/2021 3:18 PM NURSE WOUND CARE someone who was confirmed or suspected to have Coronavirus / COVID-19? documented as of this encounter Miscellaneous Notes Telephone Encounter - Arleen Esparza RN - 05/25/2021 10:18 AM CST Patient given a 6 month supply of medication on 01/12/21. Requesting a refill too soon. Refusing refill request and closing encounter. Arleen Esparza RN on 05/25/2021 at 10:18 AM E WOUND CARE documented in this encounter Plan of Treatment Upcoming Encounters Date Type Specialty Care Team Description 05/20/2022 Lab Lab documented as of this encounter Visit Diagnoses Diagnosis Benign essential hypertension Essential hypertension, benign documented in this encounter Care Teams Miller Head Wet Process Relationship Specialty Start Date End Date Froylan Louise MD PCP - General Family Practice 02/22/14 Froylan Louise MD Assigned PCP 03/13/14 2 Esthela Corea RN Personal Advocate & Liaison Family Medicine 10/16 (PAL) documented as of this encounter
--- OUTSIDE RECORDS SUMMARY | 2022-05-15 22:17 | XMS_ITS | Encounter Summary ---
:1955 Author Organization [facility] Address [address] [place] [address] Care Team Providers Name Role Phone Froylan Louise MD Primary Care Provider Unavailable Froylan Louise MD Unavailable Unavailable Esthela Corea RN Unavailable Unavailable Reason for Visit Reason Comments Medication Refill Encounter Details Date Type Department Care Team Description 05/23/2021 Refill [facility] Froylan Louise Ra, MD Medication Refill [address] [address] Social History Tobacco Use [...] containing 4 or more times a w [place] 05/25/2021 alcohol? How many drinks containing alcohol [...] you attend sikhism or Patient refused 2020 moravian services? Do [...] place to sleep or slept in a group home (including now)? Sex Assigned at Date Recorded Not on file COVID-19 Exposure Response Date Recorded In the last month, have you been in contact with No / Unsure 05/07/2021 3:18 PM GRIEVANCE COORDINATOR someone who was confirmed or suspected to have Coronavirus / COVID-19? documented as of this encounter Miscellaneous Notes Telephone Encounter - Daysi Randhawa RN - 05/24/2021 3:29 PM CST Has appointment tomorrow. Provider to refill medications at that time. Daysi Randhawa RN VANCE COORDINATOR documented in this encounter Plan of Treatment Upcoming Encounters Date Type Specialty Care Team Description 05/20/2022 Lab Lab documented as of this encounter Visit Diagnoses Diagnosis Benign prostatic hyperplasia with lower urinary tract symptoms, symptom details unspecified Insomnia, unspecified type H/O ulcerative colitis Personal history of other diseases of di gestive system documented in this encounter Care Teams Research Computing Specialist Relationship Specialty Start Date End Date Froylan Louise MD PCP - General Family Practice 02/22/14 Froylan Louise MD Assigned PCP 03/13/14 2 Esthela Corea RN Personal Advocate & Liaison Family Medicine 10/16 (PAL) documented as of this encounter
--- OUTSIDE RECORDS SUMMARY | 2022-05-15 22:17 | XMS_ITS | Encounter Summary ---
:1955 Author Organization [facility] Address [address] [place] [address] Care Team Providers Name Role Phone Froylan Louise MD Primary Care Provider Unavailable Froylan Louise MD Unavailable Unavailable Esthela Corea RN Unavailable Unavailable Encounter Details Date Type Department Care Team Description 06/28/2021 [facility] Chr onic deep vein thrombosis (DVT) of lower extremity, unspecified laterality, unspecified vein (H); [facility] mycology teacher current use of ant icoagulant therapy [address] [place] [address] Social History Tobacco Use [...] 4 or more times a w [place] 05/25/2021 alcohol? How many drinks containing alcohol [...] or relatives? How often do you attend jehovah's witness or Patient refused 2020 amish services? Do you belong to any clubs or Yes 05/25/2021 organizations such as jehovah's witness groups, unions, fraternal or athletic groups, or [...] with No / Unsure 06/28/2021 11:11 AM CARBON LAMP CLEANER someone who was confirmed or suspected to have Coronavirus / COVID-19? documented as of this encounter Plan of Treatment Upcoming Encounters Date Type Specialty Care Team Description 05/20/2022 Lab Lab documented as of this encounter Procedures Procedure Name Priority Date/Time Associated Diagnosis Comme nts INR POINT OF CARE Routine 06/28/2021 11:12 Chronic deep vein R esults for this AM CARBON LAMP CLEANER thrombosis (DVT) of procedur e are in lower extremity, the results unspecified section. laterality, unspecified vein (H) [facility] current use of anticoagulant therapy documented in this encounter Results (ABNORMAL) INR point of care (06/28/2021 11:12 AM CARBON LAMP CLEANER) P athologist Signature INR 3.0 (H) 0.9 - 1.1 06/28/2021 [facility] 11:17 AM CARBON LAMP CLEANER Specimen Anatomical Collection Method Collection Time Receive d Time (Source) Location / / Volume Laterality Blood STRUCTURE OF LEFT Capillary / 06/28/2021 11:12 2021 HAND / Unknown Unknown AM CARBON LAMP CLEANER 11:12 AM CARBON LAMP CLEANER Narrative [facility] - 06/28/2021 11:17 AM CARBON LAMP CLEANER This test is intended for monitoring Cou madin therapy. Results are not accurate in patients with prolonged INR due to facto r deficiency. Froylan Louise MD LAB - BLOOD ORDERABLES Performing Organization Address City/State/ZIP Code Phon e Number [place] [address] Lab [address] [facility] Lab (no room number, 1st floor of clinic) [place] [address], [facility] [address] [facility] Lab (no room number, 1st floor of clinic) documented in this encounter Visit Diagnoses Diagnosis Chronic deep vein thrombosis (DVT) of lo wer extremity, unspecified laterality, unspecified vein (H) [facility] current use of anticoagulant t herapy documented in this encounter Care Teams Cloth Desizing Range Operator Chief Relationship Specialty Start Date End Date Froylan Louise MD PCP - General Family Practice 02/22/14 Froylan Louise MD Assigned PCP 03/13/14 2 Esthela Corea RN Personal Advocate & Liaison Family Medicine 10/16 (PAL) documented as of this encounter
--- OUTSIDE RECORDS SUMMARY | 2022-05-15 22:17 | XMS_ITS | Encounter Summary ---
:1955 Author Organization [place] [facility] Address [address] [place] [address] Care Team Providers Name Role Phone Froylan Louise MD Primary Care Provider Unavailable Froylan Louise MD Unavailable Unavailable Esthela Corea RN Unavailable Unavailable Encounter Details Date Type Department Care Team Description 06/08/2021 Telephone [facility] Froylan Louise Ra, MD [place] [address] [place] [address] Social History Tobacco Use [...] containing 4 or more times a w [place] 05/25/2021 alcohol? How many drinks containing alcohol [...] or relatives? How often do you attend cheondoism or Patient refused 2020 hoahaoism services? Do you belong to any clubs or Yes 05/25/2021 organizations such as cheondoism groups, unions, fraternal or athletic groups, or [...] place to sleep or slept in a fci (including now)? Sex Assigned at Date Recorded Not on file COVID-19 Exposure Response Date Recorded In the last month, have you been in contact with No / Unsure 05/25/2021 2:49 PM ENGINEER PROCESS someone who was confirmed or suspected to have Coronavirus / COVID-19? documented as of this encounter Plan of Treatment Upcoming Encounters Date Type Specialty Care Team Description 05/20/2022 Lab Lab documented as of this encounter Visit Diagnoses Not on filedocumented in this encounter Care Teams Food Handler Relationship Specialty Start Date End Date Froylan Louise MD PCP - General Family Practice 02/22/14 Froylan Louise MD Assigned PCP 03/13/14 2 Esthela Corea RN Personal Advocate & Liaison Family Medicine 10/16 (PAL) documented as of this encounter
--- OUTSIDE RECORDS SUMMARY | 2022-05-15 22:17 | XMS_ITS | Encounter Summary ---
:1955 Author Organization [facility] Address [address] [place] [address] Care Team Providers Name Role Phone Froylan Louise MD Primary Care Provider Unavailable Forylan Louise MD Unavailable Unavailable Esthela Corea RN Unavailable Unavailable Reason for Visit Reason Comments Medication Refill Encounter Details Date Type Department Care Team Description 04/17/2021 Refill [facility] Froylan Louise Ra, MD Medication Refill [address] [address] Social History Tobacco Use [...] containing 4 or more times a w [place] 05/25/2021 alcohol? How many drinks containing alcohol [...] or relatives? How often do you attend religious or Patient refused 2020 moravian services? Do you belong to any clubs or Yes 05/25/2021 organizations such as religious groups, unions, fraternal or athletic groups, or [...] Telephone Encounter - Diana Nielsen RN - 04/19/2021 4:46 PM CDT Reviewed last refill and last INR check. He is appropriately scheduled for next INR 04/27/21. Prescription approved per [facility] Refill Protocol. Telephone Encounter - Yudith Mejia RN - 04/19/2021 9:58 AM CDT Routing refill request to provider for review/approval because: Routed to INR pool Prescription approved per [facility] Refill Protocol. Yudith Mejia RN, BSN Message handled by CLINIC NURSE. documented in this encounter Plan of Treatment Upcoming Encounters Date Type Specialty Care Team Description 05/20/2022 Lab Lab documented as of this encounter Visit Diagnoses Diagnosis Acute deep vein thrombosis (DVT) of prox imal vein of both lower extremities (H) Lichen planus documented in this encounter Care Teams Mental Health Aides Teacher Relationship Specialty Start Date End Date Froylan Louise MD PCP - General Family Practice 02/22/14 Froylan Louise MD Assigned PCP 03/13/14 2 Esthela Corea RN Personal Advocate & Liaison Family Medicine 10/16 (PAL) documented as of this encounter
--- OUTSIDE RECORDS SUMMARY | 2022-05-15 22:17 | XMS_ITS | Encounter Summary ---
:1955 Author Organization [facility] Address [address] [place] [address] Care Team Providers Name Role Phone Froylan Louise MD Primary Care Provider Unavailable Froylan Louise MD Unavailable Unavailable Esthela Corea RN Unavailable Unavailable Encounter Details Date Type Department Care Team Description 04/26/2021 [facility] Chr onic deep vein thrombosis (DVT) of lower extremity, unspecified laterality, unspecified vein (H); [facility] current use of ant icoagulant therapy [address] [place] [address] Social History Tobacco Use [...] containing 4 or more times a w [place] 05/25/2021 alcohol? How many drinks containing alcohol [...] you attend religious or Patient refused 2020 denominational services? Do you belong to any clubs [...] been in contact with No / Unsure 04/26/2021 3:34 PM CDT someone who was confirmed or suspected to have Coronavirus / COVID-19? documented as of this encounter Plan of Treatment Upcoming Encounters Date Type Specialty Care Team Description 05/20/2022 Lab Lab documented as of this encounter Procedures Procedure Name Priority Date/Time Associated Diagnosis Comme nts INR POINT OF CARE Routine 04/26/2021 3:47 PM Chronic deep vein Results for this CDT thrombosis (DVT) of procedur e are in lower extremity, the results unspecified section. laterality, unspecified vein (H) [facility] current use of anticoagulant therapy documented in this encounter Results (ABNORMAL) INR point of care (04/26/2021 3:47 PM CDT) P athologist Signature INR 2.2 (H) 0.9 - 1.1 04/26/2021 [facility] 3:56 PM CDT Specimen Anatomical Collection Method Collection Time Receive d Time (Source) Location / / Volume Laterality Blood CAPILLARY BLOOD / Capillary / 04/26/2021 3:47 PM 09/2020 3:47 Unknown Unknown CDT PM CDT Narrative [facility] - 04/26/2021 3:56 PM CDT This test is intended for monitoring Cou madin therapy. Results are not accurate in patients with prolonged INR due to facto r deficiency. Froylan Louise MD LAB - BLOOD ORDERABLES Performing Organization Address City/State/ZIP Code [place] [address] Lab [address] [facility] Lab (no room number, 1st floor of clinic) [place] [address], [phone] [facility] [address] [facility] (no room number, 1st floor of clinic) documented in this encounter Visit Diagnoses Diagnosis Chronic deep vein thrombosis (DVT) of lo wer extremity, unspecified laterality, unspecified vein (H) [facility] current use of anticoagulant t herapy documented in this encounter Care Teams Medical Apparatus Model Maker Relationship Specialty Start Date End Date Froylan Louise MD PCP - General Family Practice 02/22/14 Froylan Louise MD Assigned PCP 03/13/14 2 Esthela Corea, RN Personal Advocate & Liaison Family Medicine 10/16 (PAL) documented as of this encounter
--- OUTSIDE RECORDS SUMMARY | 2022-05-15 22:17 | XMS_ITS | Encounter Summary ---
:1955 Author Organization [facility] Address [address] [place] [address] Care Team Providers Name Role Phone Froylan Louise MD Primary Care Provider Unavailable Froylan Louise MD Unavailable Unavailable Esthela Corea RN Unavailable Unavailable Encounter Details Date Type Department Care Team Description 05/25/2021 Travel Social History Tobacco Use Types Packs/Day [...] or more times a w [place] 05/25/2021 alcohol? How many drinks containing alcohol [...] you attend denominational or Patient refused 2020 adventism services? Do [...] with No / Unsure 05/25/2021 2:49 PM VP LEGAL AFFAIRS someone who was confirmed or suspected to have Coronavirus / COVID-19? documented as of this encounter Plan of Treatment Upcoming Encounters Date Type Specialty Care Team Description 05/20/2022 Lab Lab documented as of this encounter Visit Diagnoses Not on filedocumented in this encounter Care Teams Turkey Cleaner Relationship Specialty Start Date End Date Froylan Louise MD PCP - General Family Practice 02/22/14 Froylan Louise MD Assigned PCP 03/13/14 2 Esthela Corea, RN Personal Advocate & Liaison Family Medicine 10/16 (PAL) documented as of this encounter
--- OUTSIDE RECORDS SUMMARY | 2022-05-15 22:17 | XMS_ITS | Encounter Summary ---
:1955 Author Organization [facility] Address [address] [place] [address]. [place] [address] Care Team Providers Name Role Phone Froylan Louise MD Primary Care Provider Unavailable Froylan Louise MD Unavailable Unavailable Esthela Corea RN Unavailable Unavailable Encounter Details Date Type Department Care Team Description 06/28/2021 Anticoagulation [facility], Chronic deep vein thrombosis (DVT) of lower extremity, unspecified laterality, unspecified vein (H) (Primary Dx); Therapy Visit Anticoagulation Diana Conrad RN termite control technician current use of anticoagulant therapy Clinic [address] [place] [address] Social History Tobacco Use Types [...] or relatives? How often do you attend yarsani or Patient refused 2020 episcopal services? Do you belong to any clubs or Yes 05/25/2021 organizations such as yarsani groups, unions, fraternal or athletic groups, or [...] with No / Unsure 06/28/2021 11:11 AM SENIOR QA ANALYST someone who was confirmed or suspected to have Coronavirus / COVID-19? documented as of this encounter Progress Notes Diana Nielsen RN - 06/28/2021 1:13 PM CST Anticoagulation Management Unable to reach Virgil today. Today's INR result of 3.0 is therapeutic (goal INR of 2.0-3.0). Result received from: Clinic Lab Follow up required to confirm warfarin dose taken and assess for changes. Last INR therapeutic, one prior was supratherapeutic due to discontinuing his multivitamins with K. Stated he would be returning to them. No other concerns per chart review. If, after collection administrator, no changes or concerns, next INR in 4 weeks and keep up with green veggies. Left vm to return call to [facility] RN. Anticoagulation clinic to follow up Diana Nielsen RN OR QA ANALYST Diana Nielsen RN - 06/28/2021 1:13 PM CST ANTICOAGULATION MANAGEMENT Virgil Christine 65 year old male is on warfarin with therapeutic INR result. (Goal INR 2.0-3.0) Recent labs: (last 7 days) 06/28/21 1112 INR 3.0* ASSESSMENT Source(s): Chart Review and Patient/Caregiver Call ??? Warfarin doses taken: Warfarin taken differently, but did not change total weekly dose ??? Diet: No new diet changes identified. Doesn't eat many greens, gets vit K through vitamin. ??? 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 Draining more recently, changes a pad about 6x/day (clear liquid). Followed by rectal surgeon and would require complete excision and re-anastomosis likely. Patient states he can't have surgery until after he retires because the recovery from it is so long. ??? Medication/supplement changes: None noted ??? Signs or symptoms of bleeding or clotting: No ??? Previous INR: Therapeutic last visit; previously outside of goal range ??? Additional findings: None PLAN Recommended plan for no diet, medication or health factor changes affecting INR Dosing Instructions: Continue your current warfarin dose with next INR in 4 weeks Summary As of 06/28/2021 Full warfarin instructions: 5 mg every Wed; 7.5 mg all other days Next INR check: 08/02/2021 Telephone call with Virgil who verbalizes understanding and agrees to plan Patient elected to schedule next visit in 5 weeks. Education provided: Please call back if any changes to your diet, medications or how you've been taking warfarin, Importance of consistent vitamin K intake, Impact of vitamin K foods on INR, Goal rangeand significance of current result, Importance of notifying clinic for changes in medications; a sooner lab recheck maybe needed., Importance of notifying clinic for diarrhea, nausea/vomiting, reduced intake, and/or illness; a sooner lab recheck maybe needed., Importance of notifying clinic of upcoming surgeries and procedures 2 weeks in advance and Contact [phone] with any changes, questions orconcerns. Plan made per [facility] anticoagulation protocol Diana Nielsen, CINDY Anticoagulation Clinic 06/28/2021 Anticoagulation Episode Summary Current INR goal: 2.0-3.0 TTR: 59.1 % (11.8 mo) Target end date: Indefinite Send INR reminders to: [facility] Indications Chronic deep vein thrombosis (DVT) of lower extremity unspecified laterality unspecified vein (H) [I82.509] Long-term (current) use of anticoagulants [Z79.01] [Z79.01] Comments: Anticoagulation Care Providers Provider Role Specialty Phone number Froylan Louise MD Referring Family Medicine [phone] OR QA ANALYST documented in this encounter Plan of Treatment Upcoming Encounters Date Type Specialty Care Team Description 05/20/2022 Lab Lab documented as of this encounter Visit Diagnoses Diagnosis Chronic deep vein thrombosis (DVT) of lo wer extremity, unspecified laterality, unspecified vein (H) - Primary termite control technician current use of anticoagulant t herapy documented in this encounter Care Teams Appian Bpm Developer Relationship Specialty Start Date End Date Froylan Louise MD PCP - General Family Practice 02/22/14 Froylan Louise MD Assigned PCP 03/13/14 2 Esthela Corea RN Personal Advocate & Liaison Family Medicine 10/16 (PAL) documented as of this encounter
--- OUTSIDE RECORDS SUMMARY | 2022-05-15 22:17 | XMS_ITS | Encounter Summary ---
:1955 Author Organization [facility] Address [address] [place] [address]. [place] [address] Care Team Providers Name Role Phone Froylan Louise MD Primary Care Provider Unavailable Froylan Louise MD Unavailable Unavailable Esthela Corea RN Unavailable Unavailable Encounter Details Date Type Department Care Team Description 04/26/2021 Anticoagulation [facility], Chronic deep vein thrombosis (DVT) of lower extremity, unspecified laterality, unspecified vein (H) (Primary Dx); Therapy Visit Anticoagulation Shaniqua Hein RN shelter current use of anticoagulant therapy Clinic [address] [place] [address] Social History Tobacco Use Types [...] 4 or more times a w [place] 05/25/2021 alcohol? How many drinks containing alcohol [...] or relatives? How often do you attend congregation or Patient refused 2020 gnosticism services? Do you belong to any clubs or Yes 05/25/2021 organizations such as congregation groups, unions, fraternal or athletic groups, or [...] encounter Progress Notes Shaniqua Humphrey RN - 04/26/2021 5:06 PM CDT Anticoagulation Management Unable to reach Virgil today. Today's INR result of 2.2 is therapeutic (goal INR of 2.0-3.0). Result received from: Clinic Lab Follow up required to confirm warfarin dose taken and assess for changes Left message to continue current dose of warfarin 7.5 mg tonight. Encouraged callback at patient's earliest convenience. Anticoagulation clinic to follow up Shaniqua Humphrey RN Shaniqua Humphrey RN - 04/26/2021 5:06 PM CDT ANTICOAGULATION MANAGEMENT Virgil Christine 65 year old male is on warfarin with therapeutic INR result. (Goal INR 2.0-3.0) Recent labs: (last 7 days) 04/26/21 1547 INR 2.2* ASSESSMENT Source(s): Chart Review and Patient/Caregiver Call ??? Warfarin doses taken: Warfarin taken as instructed ??? Diet: No new diet changes identified ??? New illness, injury, or hospitalization: Yes: URI (chills, fever, cough) last week - sx have resolved ??? Medication/supplement changes: Started daily supplement from [employer] - 15 ml daily = 1000 mg Turmeric ??? Per [facility] Resource: Interaction Rating = Moderate Be cautious with this combination. Severity = High ??? Occurrence = Possible ??? Level of Evidence = D Turmeric might increase the risk of bleeding with warfarin. Patient plans to take every other day d/t possible interactions with warfarin. ??? Signs or symptoms of bleeding or clotting: No ??? Previous INR: Subtherapeutic ??? Additional findings: Tested for COVID today d/t exposure at work (two coworkers positive) - patient negative. PLAN Recommended plan for temporary change(s) and ongoing change(s) affecting INR Dosing Instructions: Continue your current warfarin dose with next INR in 8 days d/t supplement Summary As of 04/26/2021 Full warfarin instructions: 5 mg every Wed; 7.5 mg all other days Next INR check: 05/04/2021 Telephone call with Virgil who verbalizes understanding and agrees to plan Lab visit scheduled Education provided: Please call back if any changes to your diet, medications or how you've been taking warfarin, Monitoring for bleeding signs and symptoms, Monitoring for clotting signs and symptoms and Importance of notifying clinic for changes in medications; a sooner lab recheck maybe needed. Plan made per [facility] anticoagulation protocol Shaniqua Humphrey RN Anticoagulation Clinic 04/26/2021 Anticoagulation Episode Summary Current INR goal: 2.0-3.0 TTR: 52.3 % (11.8 mo) Target end date: Indefinite Send INR reminders to: [facility] Indications Chronic deep vein thrombosis (DVT) of lower extremity unspecified laterality unspecified vein (H) [I82.509] Long-term (current) use of anticoagulants [Z79.01] [Z79.01] Comments: Anticoagulation Care Providers Provider Role Specialty Phone number Froylan Louise MD Referring Family Medicine [phone] documented in this encounter Plan of Treatment Upcoming Encounters Date Type Specialty Care Team Description 05/20/2022 Lab Lab documented as of this encounter Visit Diagnoses Diagnosis Chronic deep vein thrombosis (DVT) of lo wer extremity, unspecified laterality, unspecified vein (H) - Primary independent consultant current use of anticoagulant t herapy documented in this encounter Care Teams Sample Grinder Relationship Specialty Start Date End Date Froylan Louise MD PCP - General Family Practice 02/22/14 Froylan Louise MD Assigned PCP 03/13/14 2 Esthela Corea RN Personal Advocate & Liaison Family Medicine 10/16 (PAL) documented as of this encounter
--- OUTSIDE RECORDS SUMMARY | 2022-05-15 22:17 | XMS_ITS | Encounter Summary ---
:1955 Author Organization [place] Address [address] [place] [address] Care Team Providers Name Role Phone Froylan Louise MD Primary Care Provider Unavailable Froylan Louise MD Unavailable Unavailable Esthela Corea RN Unavailable Unavailable Encounter Details Date Type Department Care Team Description 05/07[facility]21 [facility] (DVT) of lower extremity, unspecified laterality, unspecified vein (H); [facility] rn long term care current use of ant icoagulant therapy [address] [place] [address] Social History Tobacco Use [...] containing 4 or more times a w [place] 05/25/2021 alcohol? How many drinks containing alcohol [...] or relatives? How often do you attend adventist or Patient refused 2020 anabaptist services? Do you belong to any clubs or Yes 05/25/2021 organizations such as adventist groups, unions, fraternal or athletic groups, or [...] with No / Unsure 05/07/2021 3:18 PM MESH WORKER someone who was confirmed or suspected to have Coronavirus / COVID-19? documented as of this encounter Plan of Treatment Upcoming Encounters Date Type Specialty Care Team Description 05/20/2022 Lab Lab documented as of this encounter Procedures Procedure Name Priority Date/Time Associated Diagnosis Comme nts INR POINT OF CARE Routine 05/07/2021 3:19 PM Chronic deep vein Results for this MESH WORKER thrombosis (DVT) of procedur e are in lower extremity, the results unspecified section. laterality, unspecified vein (H) shelter current use of anticoagulant therapy documented in this encounter Results (ABNORMAL) INR point of care (05/07/2021 3:19 PM MESH WORKER) P athologist Signature INR 3.1 (H) 0.9 - 1.1 05/07/2021 [facility] 4:00 PM MESH WORKER Specimen Anatomical Collection Method / Collection Time Recei lindy Time (Source) Location / Volume Laterality Blood STRUCTURE OF Venipuncture / 05/07/2021 3:19 05/07/2021 3:20 FINGER OF RIGHT Unknown PM MESH WORKER PM MESH WORKER HAND / Unknown Narrative [facility] - 05/07/2021 4:00 PM MESH WORKER This test is intended for monitoring Cou madin therapy. Results are not accurate in patients with prolonged INR due to facto r deficiency. Froylan Louise MD LAB - BLOOD ORDERABLES Performing Organization Address City/State/ZIP Code Phon [place] [address] [facility] [address] [facility], 1st floor of clinic) [place] [address], [facility] [address] [facility], 1st floor of clinic) documented in this encounter Visit Diagnoses Diagnosis Chronic deep vein thrombosis (DVT) of lo wer extremity, unspecified laterality, unspecified vein (H) shelter current use of anticoagulant t herapy documented in this encounter Care Teams Patient Intake Coordinator Relationship Specialty Start Date End Date Froylan Louise MD PCP - General Family Practice 02/22/14 Froylan Louise MD Assigned PCP 03/13/14 2 Esthela Corea, RN Personal Advocate & Liaison Family Medicine 10/16 (PAL) documented as of this encounter
--- OUTSIDE RECORDS SUMMARY | 2022-05-15 22:17 | XMS_ITS | Encounter Summary ---
:1955 Author Organization [place] Address [address] [place] [address] Care Team Providers Name Role Phone Froylan Louise MD Primary Care Provider Unavailable Froylan Louise MD Unavailable Unavailable Esthela Corea RN Unavailable Unavailable Encounter Details Date Type Department Care Team Description 04/26/2021 Travel Social History Tobacco Use Types Packs/Day Years Used Date Smoking Tobacco: Former Cigarettes 2 25 Quit : 08/04/2006 Smokeless Tobacco: Never Comments: 2004 Alcohol Use Standard Drinks/Week Comments Yes 0 (1 standard drink = 0.6 oz pure alcoho l) 4 BEERS A day Alcohol Habits Answer Date Recorded How often do you have a drink containing 4 or more times a w [place] 05/25/2021 alcohol? How many drinks containing alcohol [...] or relatives? How often do you attend temple or Patient refused 2020 episcopal services? Do you belong to any clubs or Yes 05/25/2021 organizations such as temple groups, unions, fraternal or athletic groups, or [...] on filedocumented in this encounter Care Teams Extruder Operator Horizontal Relationship Specialty Start Date End Date Froylan Louise MD PCP - General Family Practice 02/22/14 Froylan Louise MD Assigned PCP 03/13/14 2 Esthela Corea, RN Personal Advocate & Liaison Family Medicine 10/16 (PAL) documented as of this encounter
--- OUTSIDE RECORDS SUMMARY | 2022-05-15 22:17 | XMS_ITS | Encounter Summary ---
:1955 Author Organization [place] Address [address] [place] [address] Care Team Providers Name Role Phone Froylan Louise MD Primary Care Provider Unavailable Froylan Louise MD Unavailable Unavailable Esthela Corea RN Unavailable Unavailable Encounter Details Date Type Department Care Team Description 04/13/2021 Travel Social History Tobacco Use Types Packs/Day Years Used Date Smoking Tobacco: Former Cigarettes 2 25 Quit : 08/04/2006 Smokeless Tobacco: Never Comments: 2004 Alcohol Use Standard Drinks/Week Comments Yes 0 (1 standard drink = 0.6 oz pure alcoho l) 4 BEERS A day Alcohol Habits Answer Date Recorded How often do you have a drink containing 4 or more times a w [place] 05/25/2021 alcohol? How many drinks containing alcohol [...] or relatives? How often do you attend gnosticist or Patient refused 2020 congregational services? Do you belong to any clubs or Yes 05/25/2021 organizations such as gnosticist groups, unions, fraternal or athletic groups, or [...] on filedocumented in this encounter Care Teams Pastry Decorator Relationship Specialty Start Date End Date Froylan Louise MD PCP - General Family Practice 02/22/14 Froylan Louise MD Assigned PCP 03/13/14 2 Esthela Corea, RN Personal Advocate & Liaison Family Medicine 10/16 (PAL) documented as of this encounter
--- OUTSIDE RECORDS SUMMARY | 2022-05-15 22:18 | XMS_ITS | Encounter Summary ---
:1955 Author Organization [place] Address [address] [place] [address] Care Team Providers Name Role Phone Froylan Louise MD Primary Care Provider Unavailable Froylan Louise MD Unavailable Unavailable Esthela Corea RN Unavailable Unavailable Reason for Visit Reason Comments Medication Refill Encounter Details Date Type Department Care Team Description 02/19/2021 Refill [facility] Froylan Louise Ra, MD Medication Refill [address] [address] Social History Tobacco Use [...] containing 4 or more times a w [place] 05/25/2021 alcohol? How many drinks containing alcohol [...] you attend congregation or Patient refused 2020 pentecostal services? Do you belong to any clubs [...] been in contact with No / Unsure 02/16/2021 1:12 PM CDT someone who was confirmed or suspected to have Coronavirus / COVID-19? documented as of this encounter Miscellaneous Notes Telephone Encounter - Anival Lundberg RN - 02/19/2021 5:48 PM CDT Prescription approved per [facility] Refill Protocol. Anival Phillip RN documented in this encounter Plan of Treatment Upcoming Encounters Date Type Specialty Care Team Description 05/20/2022 Lab Lab documented as of this encounter Visit Diagnoses Diagnosis Mild persistent asthma, uncomplicated Unspecified asthma documented in this encounter Care Teams Perfect Binder Setter Relationship Specialty Start Date End Date Froylan Louise MD PCP - General Family Practice 02/22/14 Froylan Louise MD Assigned PCP 03/13/14 2 Esthela Corea RN Personal Advocate & Liaison Family Medicine 10/16 (PAL) documented as of this encounter
--- OUTSIDE RECORDS SUMMARY | 2022-05-15 22:18 | XMS_ITS | Encounter Summary ---
:1955 Author Organization [place] Address [address] [place] [address] Care Team Providers Name Role Phone Froylan Louise MD Primary Care Provider Unavailable Froylan Louise MD Unavailable Unavailable Esthela Corea RN Unavailable Unavailable Encounter Details Date Type Department Care Team Description 03/01/2021 Travel Social History Tobacco Use Types Packs/Day Years Used Date Smoking Tobacco: Former Cigarettes 2 25 Quit : 08/04/2006 Smokeless Tobacco: Never Comments: 2004 Alcohol Use Standard Drinks/Week Comments Yes 0 (1 standard drink = 0.6 oz pure alcoho l) 4 BEERS A day Alcohol Habits Answer Date Recorded How often do you have a drink containing 4 or more times a w [place] 05/25/2021 alcohol? How many drinks containing alcohol [...] you attend methodist or Patient refused 2020 faith services? Do you belong to any clubs [...] been in contact with No / Unsure 03/01/2021 3:00 PM CDT someone who was confirmed or suspected to have Coronavirus / COVID-19? documented as of this encounter Plan of Treatment Upcoming Encounters Date Type Specialty Care Team Description 05/20/2022 Lab Lab documented as of this encounter Visit Diagnoses Not on filedocumented in this encounter Care Teams Toll Mechanic Relationship Specialty Start Date End Date Froylan Louise MD PCP - General Family Practice 02/22/14 Froylan Louise MD Assigned PCP 03/13/14 2 Esthela Corea, RN Personal Advocate & Liaison Family Medicine 10/16 (PAL) documented as of this encounter
--- OUTSIDE RECORDS SUMMARY | 2022-05-15 22:18 | XMS_ITS | Encounter Summary ---
:1955 Author Organization [place] Address [facility] [place] [address] Care Team Providers Name Role Phone Froylan Louise MD Primary Care Provider Unavailable Froylan Louise MD Unavailable Unavailable Esthela Corea RN Unavailable Unavailable Reason for Visit Reason Onset Date Comments WOUND CARE 03/02/2021 Encounter Details Date Type Department Care Team Description 03/02/2021 Telephone [facility] Wound [place] Nuñez MD WOUND CARE Clinic [place] [address] [place] [address] [place] [address] [place] [id number] [phone] Social History Tobacco Use Types Packs/Day Years Used Date Smoking Tobacco: Former Cigarettes 2 25 Quit : 08/04/2006 Smokeless Tobacco: Never Comments: 2004 Alcohol Use Standard Drinks/Week Comments Yes 0 (1 standard drink = 0.6 oz pure alcoho l) 4 BEERS A day Alcohol Habits Answer Date Recorded How often do you have a drink containing 4 or more times a w [place] 05/25/2021 alcohol? How many drinks containing alcohol [...] or relatives? How often do you attend quaker or Patient refused 2020 anabaptist services? Do you belong to any clubs or Yes 05/25/2021 organizations such as quaker groups, unions, fraternal or athletic groups, or [...] this encounter Miscellaneous Notes Telephone Encounter - Jairon Pickett RN - 03/02/2021 1:40 PM CDT Call returned with patient describing wound as healing well but being concerned about wound healing over and creating an abscess. Wound is still open with some depth noted, patient and nurse agree to continue to monitor wound and will call back if needed. Telephone Encounter - Smiley Dupree - 03/02/2021 12:29 PM CDT Has questions on how his wound is healing and its appearance. documented in this encounter Plan of Treatment Upcoming Encounters Date Type Specialty Care Team Description 05/20/2022 Lab Lab documented as of this encounter Visit Diagnoses Not on filedocumented in this encounter Care Teams Publishing Specialist Relationship Specialty Start Date End Date Froylan Louise MD PCP - General Family Practice 02/22/14 Froylan Louise MD Assigned PCP 03/13/14 2 Esthela Corea RN Personal Advocate & Liaison Family Medicine 10/16 (PAL) documented as of this encounter
--- OUTSIDE RECORDS SUMMARY | 2022-05-15 22:18 | XMS_ITS | Encounter Summary ---
:1955 Author Organization [place] Address [address] [place] [address]. [place] [address] Care Team Providers Name Role Phone Froylan Louise MD Primary Care Provider Unavailable Froylan Louise MD Unavailable Unavailable Esthela Corea RN Unavailable Unavailable Encounter Details Date Type Department Care Team Description 03/01/2021 Anticoagulation [facility], Chronic deep vein thrombosis (DVT) of lower extremity, unspecified laterality, unspecified vein (H) (Primary Dx); Therapy Visit Anticoagulation Diana Conrad RN [facility] current use of anticoagulant therapy Clinic [address] [place] [address] Social History Tobacco Use Types [...] containing 4 or more times a w [place] 05/25/2021 alcohol? How many drinks containing alcohol [...] you attend anglican or Patient refused 2020 episcopal services? Do [...] encounter Progress Notes Diana Nielsen RN - 03/01/2021 3:57 PM CDT ANTICOAGULATION MANAGEMENT Virgil Christine 65 year old male is on warfarin with subtherapeutic INR result. (Goal INR 2.0-3.0) Recent labs: (last 7 days) 03/01/21 1501 INR 1.4* ASSESSMENT Source(s): Chart Review and Patient/Caregiver Call ??? Warfarin doses taken: Warfarin taken as instructed ??? Diet: No new diet changes identified ??? New illness, injury, or hospitalization: No ??? Medication/supplement changes: Keflex was making him nauseous, so switched to amoxicillin, so now finished with both. ??? Signs or symptoms of bleeding or clotting: No ??? Previous INR: Therapeutic last visit; previously outside of goal range (supra) ??? Additional findings: no infection noted at wound site. PLAN Recommended plan for ongoing change(s) affecting INR Dosing Instructions: Booster dose then Increase your warfarin dose (12.5% change) with next INR in 1week Summary As of 03/01/2021 Full warfarin instructions: 03/01: 11.25 mg; Otherwise 5 mg every Mon, Wed, Fri; 7.5 mg all other days Next INR check: 03/08/2021 Telephone call with Virgil who verbalizes understanding and agrees to plan Lab visit scheduled Education provided: Please call back if any changes to your diet, medications or how you've been taking warfarin, Goal range and significance of current result, Potential interaction between warfarin and keflex/amoxicillin, and wound healing, Monitoring for bleeding signs and symptoms, Monitoring for clotting signs and symptoms, When to seek medical attention/emergency care, Written instructions provided and Contact [phone] with any changes, questions or concerns. Plan made per [facility] anticoagulation protocol Diana Nielsen RN Anticoagulation Clinic 03/01/2021 Anticoagulation Episode Summary Current INR goal: 2.0-3.0 TTR: 62.1 % (11.8 mo) Target end date: Indefinite Send INR reminders to: [facility] Indications Chronic deep vein thrombosis (DVT) of lower extremity unspecified laterality unspecified vein (H) [I82.509] Long-term (current) use of anticoagulants [Z79.01] [Z79.01] Comments: Anticoagulation Care Providers Provider Role Specialty Phone number Froylan Louise MD Referring Family Medicine [phone] documented in this encounter Plan of Treatment Upcoming Encounters Date Type Specialty Care Team Description 05/20/2022 Lab Lab documented as of this encounter Visit Diagnoses Diagnosis Chronic deep vein thrombosis (DVT) of lo wer extremity, unspecified laterality, unspecified vein (H) - Primary medical terminologist current use of anticoagulant t herapy documented in this encounter Care Teams Race Starter Relationship Specialty Start Date End Date Froylan Louise MD PCP - General Family Practice 02/22/14 Froylan Louise MD Assigned PCP 03/13/14 2 Esthela Corea, RN Personal Advocate & Liaison Family Medicine 10/16 (PAL) documented as of this encounter
--- OUTSIDE RECORDS SUMMARY | 2022-05-15 22:18 | XMS_ITS | Encounter Summary ---
:1955 Author Organization [place] Address [address] [place] [address] Care Team Providers Name Role Phone Froylan Louise MD Primary Care Provider Unavailable Froylan Louise MD Unavailable Unavailable Esthela Corea RN Unavailable Unavailable Encounter Details Date Type Department Care Team Description 02/20/2021 Travel Social History Tobacco Use Types Packs/Day Years Used Date Smoking Tobacco: Former Cigarettes 2 25 Quit : 08/04/2006 Smokeless Tobacco: Never Comments: 2004 Alcohol Use Standard Drinks/Week Comments Yes 0 (1 standard drink = 0.6 oz pure alcoho l) 4 BEERS A day Alcohol Habits Answer Date Recorded How often do you have a drink containing 4 or more times a w [place] 05/25/2021 alcohol? How many drinks containing alcohol [...] you attend sikhism or Patient refused 2020 faith services? Do [...] been in contact with No / Unsure 02/20/2021 1:25 PM CDT someone who was confirmed or suspected to have Coronavirus / COVID-19? documented as of this encounter Plan of Treatment Upcoming Encounters Date Type Specialty Care Team Description 05/20/2022 Lab Lab documented as of this encounter Visit Diagnoses Not on filedocumented in this encounter Care Teams Fmd Teacher Relationship Specialty Start Date End Date Froylan Louise MD PCP - General Family Practice 02/22/14 Froylan Louise MD Assigned PCP 03/13/14 2 Esthela Corea, RN Personal Advocate & Liaison Family Medicine 10/16 (PAL) documented as of this encounter
--- OUTSIDE RECORDS SUMMARY | 2022-05-15 22:18 | XMS_ITS | Encounter Summary ---
:1955 Author Organization [place] Address [facility] [place] [address] Care Team Providers Name Role Phone Froylan Louise MD Primary Care Provider Unavailable Froylan Louise MD Unavailable Unavailable Esthela Corea RN Unavailable Unavailable Reason for Visit Reason Comments WOUND CARE Encounter Details Date Type Department Care Team Description 02/20/2021 Hospital Encounter [facility] Uriel Nuñez en knee wound, Wound Clinic Latesha Conrad MD left, initial [address] encounter (Primary [address]) [place] [address] Social History Tobacco Use Types Packs/Day Years Used Date Smoking Tobacco: Former Cigarettes 2 25 Quit : 08/04/2006 Smokeless Tobacco: Never Comments: 2004 Alcohol Use Standard Drinks/Week Comments Yes 0 (1 standard drink = 0.6 oz pure alcoho l) 4 BEERS A day Alcohol Habits Answer Date Recorded How often do you have a drink containing 4 or more times a w ione 05/25/2021 alcohol? How many drinks containing alcohol [...] or relatives? How often do you attend evangelical or Patient refused 2020 catholic services? Do you belong to any clubs or Yes 05/25/2021 organizations such as evangelical groups, unions, fraternal or athletic groups, or [...] Sign Reading Time Taken Comments Blood Pressure 146/76 02/20/2021 1:29 PM CDT Pulse 88 02/20/2021 1:29 PM CDT Temperature 36.7 ??C (98.1 ??F) 02/20/2021 1:29 PM CDT Respiratory Rate - - Oxygen Saturation - - Inhaled Oxygen Concentration - - Weight - - Height - - Body Mass Index - - documented in this encounter Discharge Instructions Discharge InstructionsEsthela Ro RN - 02/20/2021 2:05 PM CDT [facility] [address] [place] [phone] Call us at [phone] if you have any questions about your wounds, have redness or swelling aroundyour wound, have a fever of 101 or greater or if you have any other problems or concerns. We answer the phone Friday through Friday 8 am to 4 pm, please leave a message as we check the voicemail frequently throughout the day. Virgil Christine 1955 Medications/supplements to aid in healin. Vitamin D3 10,000 iu per day 2. Emily C 1,000 mg take twice daily 3. Vitamin B Complex with folic acid take 1 tablet daily 4. Vitamin B 12 1000 mcg daily 5. Hesperidin Diosmin 1 tablet twice daily order from www.[employer] or call [phone] Wound care recommendations to Right Knee After cleansing with saline or wound cleanser, apply small amount of VASHE on gauze, lay into wound bed, let sit for 15-30 minutes, remove gauze (do not rinse) then apply dressing. Apply Skin Integrity Gel to wound apply Yellow stripe edemawear over knee. Apply gauze and roll gauze on outside then secure with tape Change daily Compression: Apply clean compression spandigrip F first thing in the morning and remove at night before going to bed. Remove compression dressing if toes turn blue and/or start to feel numb and is not relieved by elevating the leg for one hour. Walk as much as you can. When you sit raise your ankle above your hips to promote wound healing. Marjan Nuñez M.D.. February 20, 2021 Wound Clinic follow up 6 weeks If you had a positive experience please indicate that on your patient satisfaction survey form that [facility] will be sending you. It was a pleasure meeting with you today. Thank you for allowing me and my team the privilege of caring for you today. YOU are the reason we are here, and I truly hope we provided you with the excellent service you deserve. Please let us know if there is anything else we can do for you so that we can be sure you are leaving completely satisfied with your care experience. If you have any billing related questions please call the [facility] Business office at [phone]. The clinic staff does not handle billing related matters. documented in this encounter Medications at Time of Discharge [...] proximal vein of both lower extremities (H), correction current use of anticoagulants with INR [...] 1 tablet by 60 tablet 0 01/18/2021 12/0 08/2020 (SENOKOT-S/PERICOLACE) mouth 2 times 8.6-50 MG daily [...] 11/30/2021 (CHOLECALCIFEROL) 250 mcg by mouth every (71336 units) capsule morning warfarin ANTICOAGULANT TAKE 5MG TABLET 78 tablet 1 10/27/19 21 04/19/2021 (COUMADIN) 7.5 MG ON EVERY WED AND tabletIndications: Acute 7.5MG TABLET ON deep vein thrombosis (DVT) ALL OTHER DAYS of proximal vein of both OF THE WEEK. lower extremities (H) zolpidem ER (AMBIEN CR) TAKE 1 TABLET BY 30 tablet 0 202002/27/2021 12.5 MG CR MOUTH EVERY DAY tabletIndications: AT BEDTIME Insomnia, unspecified type NEEDED FOR SLEEP documented as of this encounter Progress Notes Uriel Nuñez MD - 02/20/2021 3:10 PM CDT Images from the original note were not included. [facility] [place] Progress Note Subject: Virgil Christine status post debridement hematoma left knee, subsequent negative pressure woundtherapy utilization. Anticoagulation. Initial wound was traumatically induced after fall onto left knee. Patient Active Problem List Diagnosis ??? Anticardiolipin antibody positive ??? Mild persistent asthma ??? Health Group Home ? ? Hyperlipidemia LDL goal <130 ??? [...] hemorrhoids without mention of complication Hemorrhoids Exam: BP (!) 146/76 (BP Location: Right arm) Pulse 88 Temp 98.1 ??F (36.7 ??C) (Temporal) Wound (used by OP [facility] only) Left other (see comments) (Active) Dressing Appearance intact 02/20/21 1330 Length (cm) 0.8 02/20/21 1330 Width (cm) 1.4 02/20/21 1330 Depth (cm) 0.8 02/20/21 1330 Wound (cm^2) 1.12 cm^2 02/20/21 1330 Wound Volume (cm^3) 0.9 cm^3 02/20/21 1330 Wound healing % 72.55 02/20/21 1330 Tunneling [Depth (cm)/Location] 7-9 o'clock / 0.3 02/20/21 1330 Wound (used by OP [facility] only) 01/23/21 1248 Left (Active) Dressing Appearance intact 02/20/21 1330 Length (cm) 3.7 02/20/21 1330 Width (cm) 1.3 02/20/21 1330 Depth (cm) 0.4 02/20/21 1330 Wound (cm^2) 4.81 cm^2 02/20/21 1330 Wound Volume (cm^3) 1.92 cm^3 02/20/21 1330 Wound healing % 66.25 02/20/21 1330 Undermining [Depth (cm)/Location] 3-5 o'clock / 0.3 02/20/21 1330 Drainage Characteristics/Odor serosanguineous;malodorous 02/20/21 1330 Drainage Amount moderate 02/20/21 1330 Undermining eliminated, wounds are present granulation tissue, can discontinue negative pressure wound therapy. 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 Medline 6.0 pH hydrogel application of wounds on a daily basis, utilize yellow stripe EdemaWear, change on a daily basis, continue adjunctive micronutrients and micronized purified flavonoid fraction Patient will return to the clinic in 6 weeks time, telehealth visit Uriel Nuñez MD on 02/20/2021 at 3:10 PM documented in this encounter Plan of Treatment Upcoming Encounters Date Type Specialty Care Team Description 05/20/2022 Lab Lab documented as of this encounter Visit Diagnoses Diagnosis Open knee wound, left, initial encounter - Primary documented in this encounter Care Teams Physical Damage Appraiser Relationship Specialty Start Date End Date Froylan Louise MD PCP - General Family Practice 02/22/14 Froylan Louise MD Assigned PCP 03/13/14 2 Esthela Corea RN Personal Advocate & Liaison Family Medicine 10/16 (PAL) documented as of this encounter
--- OUTSIDE RECORDS SUMMARY | 2022-05-15 22:18 | XMS_ITS | Encounter Summary ---
:1955 Author Organization [place] Address [address] [place] [address] Care Team Providers Name Role Phone Froylan Louise MD Primary Care Provider Unavailable Froylan Louise MD Unavailable Unavailable Esthela Corea RN Unavailable Unavailable Reason for Visit Reason Comments Medication Refill Encounter Details Date Type Department Care Team Description 02/23/2021 Refill [facility] Froylan Louise Ra, MD Medication Refill [address] [phone] Social History Tobacco Use [...] containing 4 or more times a w [place] 05/25/2021 alcohol? How many drinks containing alcohol [...] or relatives? How often do you attend episcopalian or Patient refused 2020 mandaen services? Do you belong to any clubs or Yes 05/25/2021 organizations such as episcopalian groups, unions, fraternal or athletic groups, or [...] type documented in this encounter Care Teams Automobile Spring Repairer Relationship Specialty Start Date End Date Froylan Louise MD PCP - General Family Practice 02/22/14 Froylan Louise MD Assigned PCP 03/13/14 2 Esthela Corea, RN Personal Advocate & Liaison Family Medicine 10/16 (PAL) documented as of this encounter
--- OUTSIDE RECORDS SUMMARY | 2022-05-15 22:18 | XMS_ITS | Encounter Summary ---
:1955 Author Organization [place] Address [facility] [place] [address] Care Team Providers Name Role Phone Froylan Louise MD Primary Care Provider Unavailable Froylan Louise MD Unavailable Unavailable Esthela Corea RN Unavailable Unavailable Encounter Details Date Type Department Care Team Description 02/27/2021 Telephone [facility] Wound CecSeema busby, Clinic [facility] [address] [facility] [address] [place] [address] [place] [address] [phone] (Wo rk) Social History Tobacco Use Types Packs/Day Years Used Date Smoking Tobacco: Former Cigarettes 2 25 Quit : 08/04/2006 Smokeless Tobacco: Never Comments: 2005 Alcohol Use Standard Drinks/Week Comments Yes 0 (1 standard drink = 0.6 oz pure alcoho l) 4 BEERS A day Alcohol Habits Answer Date Recorded How often do you have a drink containing 4 or more times a w [place] 05/25/2021 alcohol? How many drinks containing alcohol [...] you attend buddhist or Patient refused 2020 rastafari services? Do [...] Telephone Encounter - Esthela Ro RN - 02/27/2021 8:59 AM CDT Received Text message from Patient reporting the keflex is making him nauseous and he has stopped taking the medication. He is requesting to switch to amoxicillin. Message discussed with provider Regina CHUN. Patient report since being out of work he is doing much better. Reinforced the treatment plan keeping covered and not letting wound dry out. documented in this encounter Plan of Treatment Upcoming Encounters Date Type Specialty Care Team Description 05/20/2022 Lab Lab documented as of this encounter Visit Diagnoses Not on filedocumented in this encounter Care Teams Technical Training Coordinator Relationship Specialty Start Date End Date Froylan Louise MD PCP - General Family Practice 02/22/14 Froylan Louise MD Assigned PCP 03/13/14 2 Esthela Corea, RN Personal Advocate & Liaison Family Medicine 10/16 (PAL) documented as of this encounter
--- OUTSIDE RECORDS SUMMARY | 2022-05-15 22:18 | XMS_ITS | Encounter Summary ---
:1955 Author Organization [place] Address [address] [place] [address] Care Team Providers Name Role Phone Froylan Louise MD Primary Care Provider Unavailable Froylan Louise MD Unavailable Unavailable Esthela Corea RN Unavailable Unavailable Encounter Details Date Type Department Care Team Description 02/16/2021 [facility] Chr onic deep vein thrombosis (DVT) of lower extremity, unspecified laterality, unspecified vein (H); [place] [facility] medical terminologist current use of ant icoagulant therapy [address] [place] [address] Social History Tobacco Use [...] containing 4 or more times a w [place] 05/25/2021 alcohol? How many drinks containing alcohol [...] Comme nts INR POINT OF CARE Routine 02/16/2021 2:14 PM Chronic deep vein Results for this CDT thrombosis (DVT) of procedur e are in lower extremity, the results unspecified section. laterality, unspecified vein (H) alf current use of anticoagulant therapy documented in this encounter Results (ABNORMAL) INR point of care (02/16/2021 2:14 PM CDT) P athologist Signature INR 2.1 (H) 0.9 - 1.1 02/16/2021 [facility] 2:21 PM CDT Specimen Anatomical Collection Method / Collection Time Recei lindy Time (Source) Location / Volume Laterality Blood STRUCTURE OF Venipuncture / 02/16/2021 2:14 02/16/2021 2:15 FINGER OF LEFT Unknown PM CDT PM CDT HAND / Unknown Narrative [facility] - 02/16/2021 2:21 PM CDT This test is intended for monitoring Cou madin therapy. Results are not accurate in patients with prolonged INR due to facto r deficiency. Froylan Louise MD LAB - BLOOD ORDERABLES Performing Organization Address City/State/ZIP Code [place] [address] Lab [address] [facility] Lab (no room number, 1st floor of clinic) [place] [address], [phone] [facility] [address] [facility], 1st floor of clinic) documented in this encounter Visit Diagnoses Diagnosis Chronic deep vein thrombosis (DVT) of lo wer extremity, unspecified laterality, unspecified vein (H) medical terminologist current use of anticoagulant t herapy documented in this encounter Care Teams Produce Specialist Relationship Specialty Start Date End Date Froylan Louise MD PCP - General Family Practice 02/22/14 Froylan Louise MD Assigned PCP 03/13/14 2 Esthela Corea RN Personal Advocate & Liaison Family Medicine 10/16 (PAL) documented as of this encounter
--- OUTSIDE RECORDS SUMMARY | 2022-05-15 22:18 | XMS_ITS | Encounter Summary ---
:1955 Author Organization [place] Address [facility] [place] [address] Care Team Providers Name Role Phone Froylan Louise MD Primary Care Provider Unavailable Froylan Louise MD Unavailable Unavailable Esthela Corea RN Unavailable Unavailable Encounter Details Date Type Department Care Team Description 02/20/[address] [facility] [place] Nuñez MD [facility] [address] [place] [address] [place] [address] [place] [address] [phone] Social History Tobacco Use Types Packs/Day Years [...] you attend synagogue or Patient refused 2020 roman catholic services? [...] for the very basics like Not h aldonna at all 05/25/2021 food, housing, medical care, [...] this encounter Miscellaneous Notes Telephone Encounter - Yudith Huber RN - 02/20/2021 2:[address] Nuñez pt may take showers as needed prior to dressing change. Pt notified. Telephone Encounter - Yudith Huber RN - 02/20/2021 2:32 PM CDT Pt wants to know if he is able to shower before dressing changes. Please call him on cell phone with answer from Dr Nuñez. documented in this encounter Plan of Treatment Upcoming Encounters Date Type Specialty Care Team Description 05/20/2022 Lab Lab documented as of this encounter Visit Diagnoses Not on filedocumented in this encounter Care Teams Precision Optics Technician Relationship Specialty Start Date End Date Froylan Louise MD PCP - General Family Practice 02/22/14 Froylan Louise MD Assigned PCP 03/13/14 2 Esthela Corea RN Personal Advocate & Liaison Family Medicine 10/16 (PAL) documented as of this encounter
--- OUTSIDE RECORDS SUMMARY | 2022-05-15 22:18 | XMS_ITS | Encounter Summary ---
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 How many drinks containing alcohol [...] you attend episcopalian or Patient refused 2020 jew services? Do [...] Comme nts INR POINT OF CARE Routine 03/01/2021 3:01 PM Chronic deep vein Results for this CDT thrombosis (DVT) of procedur e are in lower extremity, the results unspecified section. laterality, unspecified vein (H) [facility] current use of anticoagulant therapy documented in this encounter Results (ABNORMAL) INR point of care (03/01/2021 3:01 PM CDT) P athologist Signature INR 1.4 (H) 0.9 - 1.1 03/01/2021 [facility] 3:05 PM CDT Specimen Anatomical Collection Method Collection Time Receive d Time (Source) Location / / Volume Laterality Blood STRUCTURE OF Capillary / 03/01/2021 3:01 PM 3:01 FINGER OF LEFT Unknown CDT PM CDT HAND / Unknown Narrative [facility] - 03/01/2021 3:05 PM CDT This test is intended for monitoring Cou madin therapy. Results are not accurate in patients with prolonged INR due to facto r deficiency. 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
--- OUTSIDE RECORDS SUMMARY | 2022-05-15 22:18 | XMS_ITS | Encounter Summary ---
:1955 Author Organization [place] Address [address] [place] [address] Care Team Providers Name Role Phone Froylan Louise MD Primary Care Provider Unavailable Froylan Louise MD Unavailable Unavailable Esthela Corea RN Unavailable Unavailable Encounter Details Date Type Department Care Team Description 03/22/2021 Travel Social History Tobacco Use Types Packs/Day Years Used Date Smoking Tobacco: Former Cigarettes 2 25 Quit : 08/04/2006 Smokeless Tobacco: Never Comments: 2004 Alcohol Use Standard Drinks/Week Comments Yes 0 (1 standard drink = 0.6 oz pure alcoho l) 4 BEERS A day Alcohol Habits Answer Date Recorded How often do you have a drink containing 4 or more times a w [place] 05/25/2021 alcohol? How many drinks containing alcohol [...] you attend islam or Patient refused 2020 taoism services? Do you belong to any clubs [...] on filedocumented in this encounter Care Teams Automobile Accessories Installer Relationship Specialty Start Date End Date Froylan Louise MD PCP - General Family Practice 02/22/14 Froylan Louise MD Assigned PCP 03/13/14 2 Esthela Corea, RN Personal Advocate & Liaison Family Medicine 10/16 (PAL) documented as of this encounter
--- OUTSIDE RECORDS SUMMARY | 2022-05-15 22:18 | XMS_ITS | Encounter Summary ---
:1955 Author Organization [place] Address [address] [place] [address]. [place] [address] Care Team Providers Name Role Phone Froylan Louise MD Primary Care Provider Unavailable Froylan Louise MD Unavailable Unavailable Esthela Corea RN Unavailable Unavailable Encounter Details Date Type Department Care Team Description 03/08/2021 Anticoagulation [facility], Chronic deep vein thrombosis (DVT) of lower extremity, unspecified laterality, unspecified vein (H) (Primary Dx); Therapy Visit Anticoagulation Diana Conrad RN shelter current use of anticoagulant therapy Clinic [address] [place] [address] Social History Tobacco Use Types [...] containing 4 or more times a w [place] 05/25/2021 alcohol? How many drinks containing alcohol [...] or relatives? How often do you attend baptist or Patient refused 2020 worship services? Do you belong to any clubs or Yes 05/25/2021 organizations such as baptist groups, unions, fraternal or athletic groups, or [...] been in contact with No / Unsure 03/08/2021 3:00 PM CDT someone who was confirmed or suspected to have Coronavirus / COVID-19? documented as of this encounter Progress Notes Diana Nielsen RN - 03/08/2021 4:29 PM CDT ANTICOAGULATION MANAGEMENT Virgil hCristine 65 year old male is on warfarin with therapeutic INR result. (Goal INR 2.0-3.0) Recent labs: (last 7 days) 03/08/21 1506 INR 2.4* ASSESSMENT Source(s): Chart Review and Patient/Caregiver Call ??? Warfarin doses taken: Warfarin taken as instructed ??? Diet: No new diet changes identified ??? New illness, injury, or hospitalization: No ??? Medication/supplement changes: None noted ??? Signs or symptoms of bleeding or clotting: No ??? Previous INR: Subtherapeutic ??? Additional findings: None , though patient is back to work, knee healing well. PLAN Recommended plan for no diet, medication or health factor changes affecting INR Dosing Instructions: Continue your current warfarin dose with next INR in 2 weeks Summary As of 03/08/2021 Full warfarin instructions: 5 mg every Mon, Wed, Fri; 7.5 mg all other days Next INR check: 03/22/2021 Telephone call with Virgil who verbalizes understanding and agrees to plan Lab visit scheduled Education provided: Please call back if any changes to your diet, medications or how you've been taking warfarin, Monitoring for bleeding signs and symptoms, Monitoring for clotting signs and symptoms and Contact [phone] with any changes, questions or concerns. Plan made per [facility] anticoagulation protocol Diana Nielsen, CINDY Anticoagulation Clinic 03/08/2021 Anticoagulation Episode Summary Current INR goal: 2.0-3.0 TTR: 60.9 % (11.8 mo) Target end date: Indefinite Send INR reminders to: [facility] Indications Chronic deep vein thrombosis (DVT) of lower extremity unspecified laterality unspecified vein (H) [I82.509] Long-term (current) use of anticoagulants [Z79.01] [Z79.01] Comments: Anticoagulation Care Providers Provider Role Specialty Phone number Froylan Louise MD Referring Family Medicine [phone] documented in this encounter Plan of Treatment Upcoming Encounters Date Type Specialty Care Team Description 05/20/2022 Lab Lab documented as of this encounter Visit Diagnoses Diagnosis Chronic deep vein thrombosis (DVT) of lo wer extremity, unspecified laterality, unspecified vein (H) - 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
--- OUTSIDE RECORDS SUMMARY | 2022-05-15 22:18 | XMS_ITS | Encounter Summary ---
:1955 Author Organization [place] Address [address] [place] [address] Care Team Providers Name Role Phone Froylan Louise MD Primary Care Provider Unavailable Froylan Louise MD Unavailable Unavailable Esthela Corea RN Unavailable Unavailable Reason for Visit Reason Comments Medication Refill Encounter Details Date Type Department Care Team Description 02/17/2021 Refill [facility] Froylan Louise Ra, MD Medication Refill [address] [address] Social History Tobacco Use [...] containing 4 or more times a w [place] 05/25/2021 alcohol? How many drinks containing alcohol [...] or relatives? How often do you attend mormon or Patient refused 2020 judaism services? Do you belong to any clubs or Yes 05/25/2021 organizations such as mormon groups, unions, fraternal or athletic groups, or [...] Telephone Encounter - Esthela Corea RN - 02/19/2021 8:03 AM CDT Routing refill request to provider for review/approval because: Listed as historical BP Readings from Last 3 Encounters: 02/16/21 (!) 143/81 02/13/21 (!) 144/78 02/09/21 128/75 Esthela Corea RN documented in this encounter Plan of Treatment Upcoming Encounters Date Type Specialty Care Team Description 05/20/2022 Lab Lab documented as of this encounter Visit Diagnoses Diagnosis Benign prostatic hyperplasia with lower urinary tract symptoms, symptom details unspecified documented in this encounter Care Teams Talent Advisor Relationship Specialty Start Date End Date Froylan Louise MD PCP - General Family Practice 02/22/14 Froylan Louise MD Assigned PCP 03/13/14 2 Esthela Corea, RN Personal Advocate & Liaison Family Medicine 10/16 (PAL) documented as of this encounter
--- OUTSIDE RECORDS SUMMARY | 2022-05-15 22:18 | XMS_ITS | Encounter Summary ---
:1955 Author Organization [place] Address Formerly [facility] [place] [address] Care Team Providers Name Role Phone Froylan Louise MD Primary Care Provider Unavailable Froylan Louise MD Unavailable Unavailable Esthela Corea RN Unavailable Unavailable Encounter Details Date Type Department Care Team Description 02/16/[address] [facility] deep [facility] (DVT) of lower extremity, unspecified laterality, unspecified vein (H) (Primary Dx); Therapy Visit Anticoagulation Clin ic [place], care home current use of ant icoagulant therapy [address], [place] [address] Social History Tobacco Use Types [...] containing 4 or more times a w [place] 05/25/2021 alcohol? How many drinks containing alcohol [...] or relatives? How often do you attend presybeterian or Patient refused 2020 muslim services? Do you belong to any clubs or Yes 05/25/2021 organizations such as presybeterian groups, unions, fraternal or athletic groups, or [...] encounter Progress Notes Stevo Thorne RN - 02/16/2021 3:38 PM CDT ANTICOAGULATION MANAGEMENT Virgil Christine 65 year old male is on warfarin with therapeutic INR result. (Goal INR 2.0-3.0) Recent labs: (last 7 days) 02/16/21 1414 INR 2.1* ASSESSMENT Source(s): Chart Review and Patient/Caregiver Call [...] INR in 2 weeks Summary As of 02/16/2021 Full warfarin instructions: 7.5 mg every Sun, Herlinda; 5 mg all other days Next INR check: 03/02/2021 Telephone call with Virgil who verbalizes understanding and agrees to plan Lab visit scheduled Education provided: Please call back if any changes to your diet, medications or how you've been taking warfarin Plan made per [facility] anticoagulation protocol Stevo Thorne RN Anticoagulation Clinic 02/16/2021 Anticoagulation Episode Summary Current INR goal: 2.0-3.0 TTR: 65.3 % (11.8 mo) Target end date: Indefinite Send INR reminders to: [facility] Indications Chronic deep vein thrombosis (DVT) of lower extremity unspecified laterality unspecified vein (H) [I82.509] Long-term (current) use of anticoagulants [Z79.01] [Z79.01] Comments: Anticoagulation Care Providers Provider Role Specialty Phone number Froylan Louise MD Referring Family Medicine [phone] documented in this encounter Plan of Treatment Upcoming Encounters Date Type Specialty Care Team Description 05/20/2022 Lab Lab documented as of this encounter Visit Diagnoses Diagnosis Chronic deep vein thrombosis (DVT) of lo wer extremity, unspecified laterality, unspecified vein (H) - Primary care home current use of anticoagulant t herapy documented in this encounter Care Teams Beverage Manager Relationship Specialty Start Date End Date Froylan Louise MD PCP - General Family Practice 02/22/14 Froylan Louise MD Assigned PCP 03/13/14 2 Esthela Corea RN Personal Advocate & Liaison Family Medicine 10/16 (PAL) documented as of this encounter
--- OUTSIDE RECORDS SUMMARY | 2022-05-15 22:18 | XMS_ITS | Encounter Summary ---
:1955 Author Organization [place] Address [address] [place] [address] Care Team Providers Name Role Phone Froylan Louise MD Primary Care Provider Unavailable Froylan Louise MD Unavailable Unavailable Esthela Corea RN Unavailable Unavailable Encounter Details Date Type Department Care Team Description 03/08/2021 Travel Social History Tobacco Use Types Packs/Day Years Used Date Smoking Tobacco: Former Cigarettes 2 25 Quit : 08/04/2006 Smokeless Tobacco: Never Comments: 2004 Alcohol Use Standard Drinks/Week Comments Yes 0 (1 standard drink = 0.6 oz pure alcoho l) 4 BEERS A day Alcohol Habits Answer Date Recorded How often do you have a drink containing 4 or more times a w [place] 05/25/2021 alcohol? How many drinks containing alcohol [...] or relatives? How often do you attend anabaptist or Patient refused 2020 presybeterian services? Do you belong to any clubs or Yes 05/25/2021 organizations such as anabaptist groups, unions, fraternal or athletic groups, or [...] on filedocumented in this encounter Care Teams Power House Control Room Operator Relationship Specialty Start Date End Date Froylan Louise MD PCP - General Family Practice 02/22/14 Froylan Louise MD Assigned PCP 03/13/14 2 Esthela Corea, RN Personal Advocate & Liaison Family Medicine 10/16 (PAL) documented as of this encounter
--- OUTSIDE RECORDS SUMMARY | 2022-05-15 22:18 | XMS_ITS | Encounter Summary ---
:1955 Author Organization [place] Address [facility] [place] [address] Care Team Providers Name Role Phone Froylan Louise MD Primary Care Provider Unavailable Froylan Louise MD Unavailable Unavailable Esthela Corea RN Unavailable Unavailable Encounter Details Date Type Department Care Team Description 03/22/2021 [facility] Chronic deep vein thrombosis (DVT) of lower extremity, unspecified laterality, unspecified vein (H) (Primary Dx); Therapy Visit Anticoagulation Clin ic [place], alf current use of ant icoagulant therapy [address], [place] [address] Social History Tobacco Use Types [...] containing 4 or more times a w [place] 05/25/2021 alcohol? How many drinks containing alcohol [...] you attend congregation or Patient refused 2020 hinduism services? Do [...] encounter Progress Notes Stevo Thorne RN - 03/22/2021 5:53 PM CDT ANTICOAGULATION MANAGEMENT Virgil Christine 65 year old male is on warfarin with therapeutic INR result. (Goal INR 2.0-3.0) Recent labs: (last 7 days) 03/22/21 1521 INR 2.0* ASSESSMENT Source(s): Chart Review and Patient/Caregiver Call [...] current warfarin dose with next INR in 3 weeks Summary As of 03/22/2021 Full warfarin instructions: 5 mg every Mon, Wed, Fri; 7.5 mg all other days Next INR check: 04/12/2021 Telephone call with Virgil who verbalizes understanding and agrees to plan Lab visit scheduled Education provided: Please call back if any changes to your diet, medications or how you've been taking warfarin Plan made per [facility] anticoagulation protocol Stevo Thorne RN Anticoagulation Clinic 03/22/2021 Anticoagulation Episode Summary Current INR goal: 2.0-3.0 TTR: 60.9 % (11.8 mo) Target end date: Indefinite Send INR reminders to: [facility] Indications Chronic deep vein thrombosis (DVT) of lower extremity unspecified laterality unspecified vein (H) [I82.509] Long-term (current) use of anticoagulants [Z79.01] [Z79.01] Comments: Anticoagulation Care Providers Provider Role Specialty Phone number Froylan Louise MD Referring Family Medicine [phone] documented in this encounter Plan of Treatment Upcoming Encounters Date Type Specialty Care Team Description 05/20/2022 Lab Lab documented as of this encounter Visit Diagnoses Diagnosis Chronic deep vein thrombosis (DVT) of lo wer extremity, unspecified laterality, unspecified vein (H) - Primary alf current use of anticoagulant t herapy documented in this encounter Care Teams Pullman Conductor Relationship Specialty Start Date End Date Froylan Louise MD PCP - General Family Practice 02/22/14 Froylan Louise MD Assigned PCP 03/13/14 2 Esthela Corea RN Personal Advocate & Liaison Family Medicine 10/16 (PAL) documented as of this encounter
--- OUTSIDE RECORDS SUMMARY | 2022-05-15 22:18 | XMS_ITS | Encounter Summary ---
:1955 Author Organization [place] Address Formerly [facility] [place] [address] Care Team Providers Name Role Phone Froylan Louise MD Primary Care Provider Unavailable Froylan Louise MD Unavailable Unavailable Esthela Corea RN Unavailable Unavailable Encounter Details Date Type Department Care Team Description 02/22/2021 Telephone [facility] [place] Nuñez MD [facility] [address] [place] [address] [place] [address] [place] [address] [phone] Social History Tobacco Use Types Packs/Day Years Used Date Smoking Tobacco: Former Cigarettes 2 25 Quit : 08/04/2006 Smokeless Tobacco: Never Comments: 2004 Alcohol Use Standard Drinks/Week Comments Yes 0 (1 standard drink = 0.6 oz pure alcoho l) 4 BEERS A day Alcohol Habits Answer Date Recorded How often do you have a drink containing 4 or more times a w [place] 05/25/2021 alcohol? How many drinks containing alcohol [...] you attend congregation or Patient refused 2020 sikh services? Do [...] this encounter Miscellaneous Notes Telephone Encounter - Regina Yost PA-C - 02/23/2021 11:08 AM CDT Spoke with Virgil today. Knee is a lot less swollen but still a little red and tender. He did feel a little nauseous yesterday but wonders if that is from his pain pill he took. Thinks his compression stocking may have been a little too tight yesterday and may have gone too hard at work. Took the day off today and feeling better. He has keflex 500mg at home and I instructed him to take this three timesa day for 10 days. Has follow-up in March and planning on coming to that. Will call if any issues in the meantime. Telephone Encounter - Alfreda Wahl RN - 02/22/2021 1:47 PM CDT Returned call to pt. He reports his knee is very swollen but no further signs of infection. He denies the need to go to the ER. He is at work right now but is taking tomorrow and Friday off. He would like to set up a telephone visit with Amaya BOWERS tomorrow to discuss care. Appt set up. No further questions or concerns. Telephone Encounter - Nicolas Ford - 02/22/2021 12:09 PM CDT [facility] Who is the name of the provider?: [place] What is the location you see this provider at?: [place] Reason for call: Please call, knee is very swollen. Concern that he went back to work too soon. Can we leave a detailed message on this number? YES documented in this encounter Plan of Treatment Upcoming Encounters Date Type Specialty Care Team Description 05/20/2022 Lab Lab documented as of this encounter Visit Diagnoses Not on filedocumented in this encounter Care Teams Owner Spa Director Relationship Specialty Start Date End Date Froylan Louise MD PCP - General Family Practice 02/22/14 Froylan Louise MD Assigned PCP 03/13/14 2 Esthela Corea, RN Personal Advocate & Liaison Family Medicine 10/16 (PAL) documented as of this encounter
--- OUTSIDE RECORDS SUMMARY | 2022-05-15 22:18 | XMS_ITS | Encounter Summary ---
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 How many drinks containing alcohol [...] you attend jainism or Patient refused 2020 yazdanism services? Do you belong to any clubs [...] Comme nts INR POINT OF CARE Routine 03/08/2021 3:06 PM Chronic deep vein Results for this CDT thrombosis (DVT) of procedur e are in lower extremity, the results unspecified section. laterality, unspecified vein (H) alf current use of anticoagulant therapy documented in this encounter Results (ABNORMAL) INR point of care (03/08/2021 3:06 PM CDT) P athologist Signature INR 2.4 (H) 0.9 - 1.1 03/08/2021 [facility] 3:11 PM CDT Specimen Anatomical Collection Method Collection Time Receive d Time (Source) Location / / Volume Laterality Blood CAPILLARY BLOOD / Capillary / 03/08/2021 3:06 PM 02/21 3:06 Unknown Unknown CDT PM CDT Narrative [facility] - 03/08/2021 3:11 PM CDT This test is intended for monitoring Cou madin therapy. Results are not accurate in patients with prolonged INR due to facto r deficiency. Froylan Louise MD LAB - BLOOD ORDERABLES Performing Organization Address City/State/ZIP Code [place] [address] Lab [address] [facility] (no room number, 1st floor of clinic) [place] [address], [facility] [address] [facility] (no room number, 1st floor of clinic) documented in this encounter Visit Diagnoses Diagnosis Chronic deep vein thrombosis (DVT) of lo wer extremity, unspecified laterality, unspecified vein (H) alf current use of anticoagulant t herapy documented in this encounter Care Teams Programmer Business Relationship Specialty Start Date End Date Froylan Louise MD PCP - General Family Practice 02/22/14 Froylan Louise MD Assigned PCP 03/13/14 2 Esthela Corea, RN Personal Advocate & Liaison Family Medicine 10/16 (PAL) documented as of this encounter
--- OUTSIDE RECORDS SUMMARY | 2022-05-15 22:18 | XMS_ITS | Encounter Summary ---
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 How many drinks containing alcohol [...] you attend samaritan or Patient refused 2020 congregational services? Do [...] Comme nts INR POINT OF CARE Routine 03/22/2021 3:21 PM Chronic deep vein Results for this CDT thrombosis (DVT) of procedur e are in lower extremity, the results unspecified section. laterality, unspecified vein (H) senior living current use of anticoagulant therapy documented in this encounter Results (ABNORMAL) INR point of care (03/22/2021 3:21 PM CDT) P athologist Signature INR 2.0 (H) 0.9 - 1.1 03/22/2021 [facility] 3:26 PM CDT Specimen Anatomical Collection Method / Collection Time Recei lindy Time (Source) Location / Volume Laterality Blood STRUCTURE OF Venipuncture / 03/22/2021 3:21 03/22/2021 3:21 FINGER OF LEFT Unknown PM CDT PM CDT HAND / Unknown Narrative [facility] - 03/22/2021 3:26 PM CDT This test is intended for monitoring Cou madin therapy. Results are not accurate in patients with prolonged INR due to facto r deficiency. Froylan Louise MD LAB - BLOOD ORDERABLES Performing Organization Address City/State/ZIP Code [place] [address] Lab [address] [facility] Lab (no room number, 1st floor of clinic) [place] [address], [facility] [address] [facility] (no room number, 1st floor of clinic) documented in this encounter Visit Diagnoses Diagnosis Chronic deep vein thrombosis (DVT) of lo wer extremity, unspecified laterality, unspecified vein (H) senior living current use of anticoagulant t herapy documented in this encounter Care Teams Manager Brand Relationship Specialty Start Date End Date Froylan Louise MD PCP - General Family Practice 02/22/14 Froylan Louise MD Assigned PCP 03/13/14 2 Esthela Corea RN Personal Advocate & Liaison Family Medicine 10/16 (PAL) documented as of this encounter
--- OUTSIDE RECORDS SUMMARY | 2022-05-15 22:18 | XMS_ITS | Encounter Summary ---
:1955 Author Organization [place] Address [address] [place] [address] Care Team Providers Name Role Phone Froylan Louise MD Primary Care Provider Unavailable Froylan Louise MD Unavailable Unavailable Esthela Corea RN Unavailable Unavailable Encounter Details Date Type Department Care Team Description 02/16/2021 Travel Social History Tobacco Use Types Packs/Day Years Used Date Smoking Tobacco: Former Cigarettes 2 25 Quit : 08/04/2006 Smokeless Tobacco: Never Comments: 2004 Alcohol Use Standard Drinks/Week Comments Yes 0 (1 standard drink = 0.6 oz pure alcoho l) 4 BEERS A day Alcohol Habits Answer Date Recorded How often do you have a drink containing 4 or more times a w [place] 05/25/2021 alcohol? How many drinks containing alcohol [...] you attend baptist or Patient refused 2020 mosque services? Do you belong to any clubs [...] on filedocumented in this encounter Care Teams Loan Operations Specialist Relationship Specialty Start Date End Date Froylan Louise MD PCP - General Family Practice 02/22/14 Froylan Louise MD Assigned PCP 03/13/14 2 Esthela Corea, RN Personal Advocate & Liaison Family Medicine 10/16 (PAL) documented as of this encounter
--- OUTSIDE RECORDS SUMMARY | 2022-05-15 22:18 | XMS_ITS | Encounter Summary ---
:1955 Author Organization [place] Address Replaced by [facility] [place] [address] Care Team Providers Name Role Phone Froylan Louise MD Primary Care Provider Unavailable Froylan Louise MD Unavailable Unavailable Esthela Corea RN Unavailable Unavailable Encounter Details Date Type Department Care Team Description 03/05/2021 Telephone [facility] [place] Nuñez MD [facility] [address] [place] [address] [place] [address] [place] [address] [phone] Social History Tobacco Use Types Packs/Day Years Used Date Smoking Tobacco: Former Cigarettes 2 25 Quit : 08/04/2006 Smokeless Tobacco: Never Comments: 2004 Alcohol Use Standard Drinks/Week Comments Yes 0 (1 standard drink = 0.6 oz pure alcoho l) 4 BEERS A day Alcohol Habits Answer Date Recorded How often do you have a drink containing 4 or more times a w [place] 05/25/2021 alcohol? How many drinks containing alcohol [...] or relatives? How often do you attend episcopal or Patient refused 2020 yarsani services? Do you belong to any clubs or Yes 05/25/2021 organizations such as episcopal groups, unions, fraternal or athletic groups, or [...] this encounter Miscellaneous Notes Telephone Encounter - Alfreda Wahl RN - 03/06/2021 10:25 AM CDT Returned call to pt. He reports the wound is improving and wanted to provide us with an update and photos. Discussed with pt to continue plan of care. Photos attached. Telephone Encounter - Nicolas Ford - 03/05/2021 10:28 AM CDT [facility] Wound Who is the name of the provider?: [place] What is the location you see this provider at?: [place] Reason for call: Wound update. Can we leave a detailed message on this number? YES documented in this encounter Plan of Treatment Upcoming Encounters Date Type Specialty Care Team Description 05/20/2022 Lab Lab documented as of this encounter Visit Diagnoses Not on filedocumented in this encounter Care Teams Food Selector Relationship Specialty Start Date End Date Froylan Louise MD PCP - General Family Practice 02/22/14 Froylan Louise MD Assigned PCP 03/13/14 2 Esthela Corea RN Personal Advocate & Liaison Family Medicine 10/16 (PAL) documented as of this encounter
--- OUTSIDE RECORDS SUMMARY | 2022-05-15 22:19 | XMS_ITS | Encounter Summary ---
:1955 Author Organization [place] [facility] Address [address] [place] [address]. [place] [address] Care Team Providers Name Role Phone Froylan Louise MD Primary Care Provider Unavailable Froylan Louise MD Unavailable Unavailable Esthela Corea RN Unavailable Unavailable Encounter Details Date Type Department Care Team Description 02/05/2021 Anticoagulation [facility], Chronic deep vein thrombosis (DVT) of lower extremity, unspecified laterality, unspecified vein (H) (Primary Dx); Therapy Visit Anticoagulation Diana Conrad RN medical terminologist current use of anticoagulant therapy Clinic [address] [place] [address] Social History Tobacco Use Types [...] containing 4 or more times a w [place] 05/25/2021 alcohol? How many drinks containing alcohol [...] you attend methodist or Patient refused 2020 jew services? Do [...] been in contact with No / Unsure 02/05/2021 2:49 PM CDT someone who was confirmed or suspected to have Coronavirus / COVID-19? documented as of this encounter Progress Notes Diana Nielsen RN - 02/05/2021 5:02 PM CDT Anticoagulation Management Unable to reach Virgil today. Today's INR result of 3.8 is supratherapeutic (goal INR of 2.0-3.0). Result received from: Clinic Lab Follow up required to discuss out of range INR . For continued supra INR, should have maintenance dosing reduced (already changed in dosing calendar by about 11%, per protocol), but will need assessment first. Left message to take reduced dose of warfarin, 2.5 mg tonight. and to call [facility] RN at [phone] Anticoagulation clinic to follow up Diana Nielsen RN Diana Nielsen RN - 02/05/2021 5:02 PM CDT Called patient again next day. Still no answer. LVM to return call. Diana Nielsen RN - 02/05/2021 5:02 PM CDT ANTICOAGULATION MANAGEMENT Virgil Christine 65 year old male is on warfarin with supratherapeutic INR result. (Goal INR 2.0-3.0) Recent labs: (last 7 days) 02/05/21 1615 INR 3.8* ASSESSMENT Source(s): Chart Review and Patient/Caregiver Call ??? Warfarin doses taken: Warfarin taken as instructed ??? Diet: No new diet changes identified ??? New illness, injury, or hospitalization: No ??? Medication/supplement changes: None noted ??? Signs or symptoms of bleeding or clotting: No ??? Previous INR: Supratherapeutic ??? Additional findings: wound healing well, plans to wear wound vac another couple of weeks, but will go back to work on light duty next week. PLAN Recommended plan for ongoing change(s) affecting INR Dosing Instructions: Partial hold then Decrease your warfarin dose (11% change) with next INR in 10 days Summary As of 02/05/2021 Full warfarin instructions: 02/05: 2.5 mg; Otherwise 7.5 mg every Sun, Herlinda; 5 mg all other days Next INR check: 02/16/2021 Telephone call with Virgil who verbalizes understanding and agrees to plan Lab visit scheduled Education provided: Please call back if any changes to your diet, medications or how you've been taking warfarin, Monitoring for bleeding signs and symptoms, Monitoring for clotting signs and symptoms,When to seek medical attention/emergency care and educated on how body is healing and still stressed, still some inflammation, with wound vac. Plan made per [facility] anticoagulation protocol Diana Nielsen RN Anticoagulation Clinic 02/06/2021 Anticoagulation Episode Summary Current INR goal: 2.0-3.0 TTR: 66.6 % (11.8 mo) Target end date: Indefinite Send INR reminders to: [facility] Indications Chronic deep vein thrombosis (DVT) of lower extremity unspecified laterality unspecified vein (H) [I82.509] Long-term (current) use of anticoagulants [Z79.01] [Z79.01] Comments: Anticoagulation Care Providers Provider Role Specialty Phone number Froylan Louise MD Referring Family Medicine [phone] documented in this encounter Plan of Treatment Upcoming Encounters Date Type Specialty Care Team Description 05/20/2022 Lab Lab documented as of this encounter Visit Diagnoses Diagnosis Chronic deep vein thrombosis (DVT) of lo wer extremity, unspecified laterality, unspecified vein (H) - Primary medical terminologist current use of anticoagulant t herapy documented in this encounter Care Teams Oven Tender Relationship Specialty Start Date End Date Froylan Louise MD PCP - General Family Practice 02/22/14 Froylan Louise MD Assigned PCP 03/13/14 2 Esthela Corea RN Personal Advocate & Liaison Family Medicine 10/16 (PAL) documented as of this encounter
--- OUTSIDE RECORDS SUMMARY | 2022-05-15 22:19 | XMS_ITS | Encounter Summary ---
:1955 Author Organization [facility] Address [address] [place] [address] Care Team Providers Name Role Phone Froylan Louise MD Primary Care Provider Unavailable Froylan Louise MD Unavailable Unavailable Esthela Corea RN Unavailable Unavailable Encounter Details Date Type Department Care Team Description 02/09/2021 Travel Social History Tobacco Use Types Packs/Day Years Used Date Smoking Tobacco: Former Cigarettes 2 25 Quit : 08/04/2006 Smokeless Tobacco: Never Comments: 2004 Alcohol Use Standard Drinks/Week Comments Yes 0 (1 standard drink = 0.6 oz pure alcoho l) 4 BEERS A day Alcohol Habits Answer Date Recorded How often do you have a drink containing 4 or more times a w [place] 05/25/2021 alcohol? How many drinks containing alcohol [...] or relatives? How often do you attend taoist or Patient refused 2020 yarsani services? Do you belong to any clubs or Yes 05/25/2021 organizations such as taoist groups, unions, fraternal or athletic groups, or [...] been in contact with No / Unsure 02/09/2021 12:48 PM CDT someone who was confirmed or suspected to have Coronavirus / COVID-19? documented as of this encounter Plan of Treatment Upcoming Encounters Date Type Specialty Care Team Description 05/20/2022 Lab Lab documented as of this encounter Visit Diagnoses Not on filedocumented in this encounter Care Teams Cuprous Chloride Operator Relationship Specialty Start Date End Date Froylan Louise MD PCP - General Family Practice 02/22/14 Froylan Louise MD Assigned PCP 03/13/14 2 Esthela Corea, RN Personal Advocate & Liaison Family Medicine 10/16 (PAL) documented as of this encounter
--- OUTSIDE RECORDS SUMMARY | 2022-05-15 22:19 | XMS_ITS | Encounter Summary ---
:1955 Author Organization [facility] Address [address] [place] [address]. [place] [address] Care Team Providers Name Role Phone Froylan Louise MD Primary Care Provider Unavailable Froylan Louise MD Unavailable Unavailable Esthela Corea RN Unavailable Unavailable Encounter Details Date Type Department Care Team Description 01/26/[address] [facility], Chronic deep vein thrombosis (DVT) of lower extremity, unspecified laterality, unspecified vein (H) (Primary Dx); Therapy Visit Anticoagulation Diana Conrad RN [facility] current use of anticoagulant therapy Clinic [address] [place] [address] Social History Tobacco Use Types [...] containing 4 or more times a w [place] 05/25/2021 alcohol? How many drinks containing alcohol [...] you attend synagogue or Patient refused 2020 denominational services? Do [...] place to sleep or slept in a alf (including now)? Sex Assigned at Date Recorded Not on file COVID-19 Exposure Response Date Recorded In the last month, have you been in contact with No / Unsure 01/26/2021 12:50 PM CDT someone who was confirmed or suspected to have Coronavirus / COVID-19? documented as of this encounter Progress Notes Diana Nielsen RN - 01/26/2021 4:21 PM CDT ANTICOAGULATION MANAGEMENT Virgil Christine 65 year old male is on warfarin with supratherapeutic INR result. (Goal INR 2.0-3.0). Rapid rise. Recent labs: (last 7 days) 01/26/21 1343 INR 3.1* ASSESSMENT Source(s): Chart Review and Patient/Caregiver Call ??? Warfarin doses taken: Warfarin taken as instructed ??? Diet: No new diet changes identified ??? New illness, injury, or hospitalization: No ??? Medication/supplement changes: Finished with abx now ??? Signs or symptoms of bleeding or clotting: No ??? Previous INR: Subtherapeutic ? ? Additional findings: Bridging with Enoxaparin until INR >= 2.3 or INR >= 2.0 x 2 ([facility] protocol goal INR 2-3) PLAN Recommended plan for temporary change(s) affecting INR Dosing Instructions: Continue your current warfarin dose Stop bridging with Enoxaparin with next INR in 1 week Summary As of 01/26/2021 Full warfarin instructions: 5 mg every Mon, Wed, Fri; 7.5 mg all other days Next INR check: 02/02/2021 Telephone call with Virgil who verbalizes understanding and agrees to plan Lab visit scheduled Education provided: Please call back if any changes to your diet, medications or how you've been taking warfarin, Monitoring for bleeding signs and symptoms, Monitoring for clotting signs and symptoms and When to seek medical attention/emergency care Plan made with [facility] Pharmacist Susanna Nielsen RN Anticoagulation Clinic 01/26/2021 Anticoagulation Episode Summary Current INR goal: 2.0-3.0 TTR: 69.6 % (11.8 mo) Target end date: Indefinite Send INR reminders to: [facility] Indications Chronic deep vein thrombosis (DVT) of lower extremity unspecified laterality unspecified vein (H) [I82.509] Long-term (current) use of anticoagulants [Z79.01] [Z79.01] Comments: Anticoagulation Care Providers Provider Role Specialty Phone number Froylan Louise MD Referring Family Medicine [phone] Associated attestation - Susanna Mendoza RPH - 01/26/2021 5:16 PM CDT Chart reviewed at the time of the encounter. Agree with plan as outlined. Susanna Mendoza, PharmD, BCPS documented in this encounter Plan of Treatment Upcoming Encounters Date Type Specialty Care Team Description 05/20/2022 Lab Lab documented as of this encounter Visit Diagnoses Diagnosis Chronic deep vein thrombosis (DVT) of lo wer extremity, unspecified laterality, unspecified vein (H) - Primary long term current use of anticoagulant t herapy documented in this encounter Care Teams Custody Officer Relationship Specialty Start Date End Date Froylan Louise MD PCP - General Family Practice 02/22/14 Fryolan Louise MD Assigned PCP 03/13/14 2 Esthela Corea RN Personal Advocate & Liaison Family Medicine 10/16 (PAL) documented as of this encounter
--- OUTSIDE RECORDS SUMMARY | 2022-05-15 22:19 | XMS_ITS | Encounter Summary ---
:1955 Author Organization [facility] Address [address] [place] [address] Care Team Providers Name Role Phone Froylan Louise MD Primary Care Provider Unavailable Froylan Louise MD Unavailable Unavailable Esthela Corea RN Unavailable Unavailable Encounter Details Date Type Department Care Team Description 01/29/2021 [facility] Chr onic deep vein thrombosis (DVT) of lower extremity, unspecified laterality, unspecified vein (H); [facility] care home current use of ant icoagulant therapy [address] [place] [address] Social History Tobacco Use [...] containing 4 or more times a w [place] 05/25/2021 alcohol? How many drinks containing alcohol [...] or relatives? How often do you attend scientology or Patient refused 2020 yazidi services? Do you belong to any clubs or Yes 05/25/2021 organizations such as scientology groups, unions, fraternal or athletic groups, or [...] been in contact with No / Unsure 01/29/2021 2:30 PM CDT someone who was confirmed or suspected to have Coronavirus / COVID-19? documented as of this encounter Plan of Treatment Upcoming Encounters Date Type Specialty Care Team Description 05/20/2022 Lab Lab documented as of this encounter Procedures Procedure Name Priority Date/Time Associated Diagnosis Comme nts INR POINT OF CARE Routine 01/29/2021 3:24 PM Chronic deep vein Results for this CDT thrombosis (DVT) of procedur e are in lower extremity, the results unspecified section. laterality, unspecified vein (H) care home current use of anticoagulant therapy documented in this encounter Results (ABNORMAL) INR point of care (01/29/2021 3:24 PM CDT) P athologist Signature INR 4.6 (H) 0.9 - 1.1 01/29/2021 [facility] 3:30 PM CDT Specimen Anatomical Collection Method Collection Time Receive d Time (Source) Location / / Volume Laterality Blood CAPILLARY BLOOD / Capillary / 01/29/2021 3:24 PM 02/2021 3:24 Unknown Unknown CDT PM CDT Narrative [facility] - 01/29/2021 3:30 PM CDT This test is intended for monitoring Cou madin therapy. Results are not accurate in patients with prolonged INR due to facto r deficiency. Froylan Louise MD LAB - BLOOD ORDERABLES Performing Organization Address City/State/ZIP Code Phon [place] [address] Lab [address] [facility] (no room number, 1st floor of clinic) [place] [address], [facility] [address] [facility] (no room number, 1st floor of clinic) documented in this encounter Visit Diagnoses Diagnosis Chronic deep vein thrombosis (DVT) of lo wer extremity, unspecified laterality, unspecified vein (H) care home current use of anticoagulant t herapy documented in this encounter Care Teams Literacy Specialist Relationship Specialty Start Date End Date Froylan Louise MD PCP - General Family Practice 02/22/14 Froylan Louise MD Assigned PCP 03/13/14 2 Esthela Corea, RN Personal Advocate & Liaison Family Medicine 10/16 (PAL) documented as of this encounter
--- OUTSIDE RECORDS SUMMARY | 2022-05-15 22:19 | XMS_ITS | Encounter Summary ---
:1955 Author Organization [facility] Address [facility] [place] [address] Care Team Providers Name Role Phone Froylan Louise MD Primary Care Provider Unavailable Froylan Louise MD Unavailable Unavailable Esthela Corea RN Unavailable Unavailable Reason for Visit Reason Comments WOUND CARE Encounter Details Date Type Department Care Team Description 02/13/2021 Hospital Encounter [facility] Jayesh Mac Open knee wound, Wound Clinic Latesha Viveros PA-C left, initial [address] W[address] HEALING encounter [address] [place], [place] [address] [address] [place], [place] [address] Social History Tobacco Use Types Packs/Day Years Used Date Smoking Tobacco: Former Cigarettes 2 25 Quit : 08/04/2006 Smokeless Tobacco: Never Comments: 2004 Alcohol Use Standard Drinks/Week Comments Yes 0 (1 standard drink = 0.6 oz pure alcoho l) 4 BEERS A day Alcohol Habits Answer Date Recorded How often do you have a drink containing 4 or more times a w [place] 05/25/2021 alcohol? How many drinks containing [...] you attend anabaptist or Patient refused 2020 church services? Do [...] been in contact with No / Unsure 02/13/2021 11:28 AM CDT someone who was confirmed or suspected to have Coronavirus / COVID-19? documented as of this encounter Last Filed Vital Signs Vital Sign Reading Time Taken Comments Blood Pressure 144/78 02/13/2021 11:33 AM CDT Pulse 82 02/13/2021 11:33 AM CDT Temperature 36.2 ??C (97.1 ??F) 02/13/2021 11:33 AM CDT Respiratory Rate 18 02/13/2021 11:33 AM CDT Oxygen Saturation - - Inhaled Oxygen Concentration - - Weight - - Height - - Body Mass Index - - documented in this encounter Discharge Instructions Discharge InstructionsYudith Huber RN - 02/13/2021 11:57 AM CDT Images from the original note were not included. [facility] [address] [place] [phone] Call us at [phone] if you have any questions about your wounds, have redness or swelling aroundyour wound, have a fever of 101 or greater or if you have any other problems or concerns. We answer the phone Friday through Friday 8 am to 4 pm, please leave a message as we check the voicemail frequently throughout the day. Virgil Christine 1955 Please continue with Vitamin and Protein diet Wound Dressing Change: Left Knee Cleanse wound and surrounding skin with: Vashe Continue with wound VAC using Black foam into tunnel to lateral wound; NPWT - 150mmHg continuous therapy Fallon Mac PA-C. February 13, 2021 Return as scheduled If you had a positive experience please indicate on your patient satisfaction survey form that [facility] will be sending you. If you have any billing related questions please call the [facility] Business office at [phone]. The clinic staff does not handle billing [...] proximal vein of both lower extremities (H), senior living current use of anticoagulants with INR goal of 2.0-3.0 albuterol (PROAIR Inhale 2 puffs 3 Inhaler 3 05/26/2020 HFA/PROVENTIL HFA/VENTOLIN into the lungs HFA) 108 (90 Base) MCG/ACT every 6 hours as inhaler needed for shortness of breath / dyspnea or wheezing amoxicillin-clavulanate Take 1 tablet by 10 tablet [...] X 500 mg) terazosin (HYTRIN) 2 MG Take 2 mg by 0 02/19/2021 capsule mouth At Bedtime TRELEGY ELLIPTA 100-62.5-25 INHALE 1 PUFF BY 180 each 3 05/25/2021 MCG/INH oral MOUTH EVERY DAY inhalerIndications: Moderate persistent asthma, uncomplicated triamcinolone (KENALOG) 0.1 APPLY TO 30 g 1 01/10/20 21 04/19/2021 % external AFFECTED AREA creamIndications: [place] TWICE A DAY planus vitamin D3 Take 1 capsule 0 11/30/2021 (CHOLECALCIFEROL) 250 mcg by mouth every (26066 units) capsule morning warfarin ANTICOAGULANT TAKE 5MG [...] documented as of this encounter Progress Notes Fallon Mac PA-C - 02/13/2021 11:30 AM CDT Images from the original note were not included. [facility] ASSESSMENT: 1. Full-thickness wound of left knee s/p I&D 2. phlebolymphedema PLAN/DISCUSSION: 1. Cont wound VAC, will incr suction to 150mmHg 2. Follow-up Friday HISTORY OF PRESENT ILLNESS: Virgil Christine is a 65 year old male with history of ulcerative colitis, chronic RLE DVT, R knee arthroplasty, antiphospholipid syndrome, and chronic anticoagulation on coumadin who returns today for a wound VAC change for a left knee ulceration. This started after a fall in mid November. Dr. Nuñez took himto the OR for a debridement on 01/15/21 and placed a wound VAC which he has remained on. Works as a [employer]. He also likes to bike. Typically wears compression stockings due to his baseline lower leg edema. 02/13: Today, presents for a VAC change. Medial wound is nearly flush with surrounding tissue. Original opening still has a small tunnel but has decreased in size. Is anxious to discontinue VAC. Going back to work this week. VITALS: BP (!) 144/78 (BP Location: Left arm) Pulse 82 Temp 97.1 ??F (36.2 ??C) (Temporal) Resp 18 PHYSICAL EXAM: GENERAL: Patient is alert and oriented and in no acute distress CV: palpable PT and DP pulses INTEGUMENTARY: Wound (used by OP [facility] only) Left other (see comments) (Active) Thickness/Stage full thickness 02/13/21 1134 Dressing Appearance intact 02/13/21 1134 Base granulating 02/13/21 1134 Periwound intact 02/13/21 1134 Periwound Temperature warm 02/13/21 1134 Periwound Skin Turgor soft 02/13/21 1134 Edges open 02/13/21 1134 Length (cm) 1 02/13/21 1134 Width (cm) 1.5 02/13/21 1134 Depth (cm) 0.4 02/13/21 1134 Wound (cm^2) 1.5 cm^2 02/13/21 1134 Wound Volume (cm^3) 0.6 cm^3 02/13/21 1134 Wound healing % 63.24 02/13/21 1134 Tunneling [Depth (cm)/Location] 7 o' 2cm 02/13/21 1134 Drainage Characteristics/Odor serosanguineous 02/13/21 1134 Drainage Amount moderate 02/13/21 1134 Care, Wound debrided 02/13/21 1134 Wound (used by OP [facility]I only) 01/23/21 1248 Left (Active) Thickness/Stage full thickness 02/13/21 1134 Dressing Appearance intact 02/13/21 1134 Base granulating 02/13/21 1134 Periwound intact 02/13/21 1134 Periwound Temperature warm 02/13/21 1134 Periwound Skin Turgor soft 02/13/21 1134 Edges open 02/13/21 1134 Length (cm) 4 02/13/21 1134 Width (cm) 1.7 02/13/21 1134 Depth (cm) 0.4 02/13/21 1134 Wound (cm^2) 6.8 cm^2 02/13/21 1134 Wound Volume (cm^3) 2.72 cm^3 02/13/21 1134 Wound healing % 52.28 02/13/21 1134 Drainage Characteristics/Odor serosanguineous 02/13/21 1134 Drainage Amount moderate 02/13/21 1134 Care, Wound debrided 02/13/21 1134 PROCEDURE: 4% topical lidocaine was applied to the wound by the nursing staff. Patient was determined to be capable of making their own medical decisions and informed consent was obtained. Using a curette a selective debridement of non- viable tissue was performed of <20 cm. Hemostasis was achieved with pressure. The patient tolerated the procedure well. FALLON MAC PA-C documented in this encounter Plan of Treatment Upcoming Encounters Date Type Specialty Care Team Description 05/20/2022 Lab Lab documented as of this encounter Visit Diagnoses Diagnosis Open knee wound, left, initial encounter documented in this encounter Care Teams Endocrinology Physician Relationship Specialty Start Date End Date Froylan Louise MD PCP - General Family Practice 02/22/14 Froylan Louise MD Assigned PCP 03/13/14 2 Esthela Corea, RN Personal Advocate & Liaison Family Medicine 10/16 (PAL) documented as of this encounter
--- OUTSIDE RECORDS SUMMARY | 2022-05-15 22:19 | XMS_ITS | Encounter Summary ---
:1955 Author Organization [facility] Address [address] [place] [address] Care Team Providers Name Role Phone Froylan Louise MD Primary Care Provider Unavailable Froylan Louise MD Unavailable Unavailable Esthela Corea RN Unavailable Unavailable Encounter Details Date Type Department Care Team Description [facility] (DVT) of lower extremity, unspecified laterality, unspecified vein (H); [facility] current use of ant icoagulant therapy [address] [place] [address] Social History Tobacco Use [...] containing 4 or more times a w [place] 05/25/2021 alcohol? How many drinks containing alcohol [...] or relatives? How often do you attend buddhism or Patient refused 2020 sikhism services? Do you belong to any clubs or Yes 05/25/2021 organizations such as buddhism groups, unions, fraternal or athletic groups, or [...] Comme nts INR POINT OF CARE Routine 01/26/2021 1:43 PM Chronic deep vein Results for this CDT thrombosis (DVT) of procedur e are in lower extremity, the results unspecified section. laterality, unspecified vein (H) manager long term care current use of anticoagulant therapy documented in this encounter Results (ABNORMAL) INR point of care (01/26/2021 1:43 PM CDT) P athologist Signature INR 3.1 (H) 0.9 - 1.1 01/26/2021 [facility] 1:48 PM CDT Specimen Anatomical Collection Method Collection Time Receive d Time (Source) Location / / Volume Laterality Blood CAPILLARY BLOOD / Capillary / 01/26/2021 1:43 PM 08/0 11/2020 1:43 Unknown Unknown CDT PM CDT Narrative [facility] - 01/26/2021 1:48 PM CDT This test is intended for monitoring Cou madin therapy. Results are not accurate in patients with prolonged INR due to facto r deficiency. Froylan Louise MD LAB - BLOOD ORDERABLES Performing Organization Address City/State/ZIP Code Phon e Number [place] [address] Lab [address] [facility] (no room number, 1st floor of clinic) [place] [address], [facility] [address] [facility] (no room number, 1st floor of clinic) documented in this encounter Visit Diagnoses Diagnosis Chronic deep vein thrombosis (DVT) of lo wer extremity, unspecified laterality, unspecified vein (H) manager long term care current use of anticoagulant t herapy documented in this encounter Care Teams Jelly Filter Tender Relationship Specialty Start Date End Date Froylan Louise MD PCP - General Family Practice 02/22/14 Froylan Louise MD Assigned PCP 03/13/14 2 Esthela Corea, RN Personal Advocate & Liaison Family Medicine 10/16 (PAL) documented as of this encounter
--- OUTSIDE RECORDS SUMMARY | 2022-05-15 22:19 | XMS_ITS | Encounter Summary ---
:1955 Author Organization [place] Address [facility] [place] [address] Care Team Providers Name Role Phone Froylan Louise MD Primary Care Provider Unavailable Froylan Louise MD Unavailable Unavailable Esthela Corea RN Unavailable Unavailable Reason for Visit Reason Comments WOUND CARE Encounter Details Date Type Department Care Team Description 02/09/2021 Hospital Encounter [facility] Uriel Nuñez Op en knee wound, Wound Clinic Latesha Conrad MD left, initial [address] encounter [address] [place] [phone] Social History Tobacco Use Types Packs/Day [...] you attend episcopalian or Patient refused 2020 taoist services? Do [...] Sign Reading Time Taken Comments Blood Pressure 128/75 02/09/2021 1:02 PM CDT Pulse 70 02/09/2021 1:02 PM CDT Temperature 36.1 ??C (96.9 ??F) 02/09/2021 1:02 PM CDT Respiratory Rate 16 02/09/2021 1:02 PM CDT Oxygen Saturation - - Inhaled Oxygen Concentration - - Weight - - Height - - Body Mass Index - - documented in this encounter Discharge Instructions Discharge InstructionsAlfreda Wahl RN - 02/09/2021 1:13 PM CDT Images from the original note were not included. [facility] [address] [place] [phone] Call us at [phone] if you have any questions about your wounds, have redness or swelling aroundyour wound, have a fever of 101 or greater or if you have any other problems or concerns. We answer the phone Friday through Friday 8 am to 4 pm, please leave a message as we check the voicemail frequently throughout the day. Virgil Christine 1955 Medications/supplements to aid in healing: Vitamin D3 10,000 iu per day Emily C 1,000 mg take twice daily Vitamin B Complex with folic acid take 1 tablet daily Vitamin B 12 1000 mcg daily Hesperidin Diosmin 1 tablet twice daily order from www.veinformula.[employer] or call [phone] Wound care recommendations to Left Knee After cleansing with saline or wound cleanser, apply small amount of VASHE on gauze, lay into wound bed, let sit for 15-30 minutes, remove gauze (do not rinse) then apply dressing. Cover wound with one Endoform Antimicrobail cut to size slightly larger than wound, moisten with saline (this is supposed to dissolve into wound, if it doesn't remove and replace) Cover wound with NPWT @ 125 mmhg Change dressing Twice weekly Compression: Apply clean compression spandigrip F first thing in the morning and remove at night before going to bed. Remove compression dressing if toes turn blue and/or start to feel numb and is not relieved by elevating the leg for one hour. Walk as much as you can. When you sit raise your ankle above your hips to promote wound healing. February 09, 2021 If you had a positive experience please indicate on your patient satisfaction survey form that [facility] will be sending you. If you have any billing related questions please call the [facility] Business office at [phone]. The clinic staff does not handle billing [...] 11/30/2021 (CHOLECALCIFEROL) 250 mcg by mouth every (25790 units) capsule morning warfarin ANTICOAGULANT TAKE 5MG [...] documented as of this encounter Progress Notes Alfreda Wahl RN - 02/09/2021 1:34 PM CDT Images from the original note were not included. [facility] [place] Nurse Note Subject: Virgil Goldbergci presents for nurse only visit for wound check and wound VAC dressing change. Exam: BP 128/75 (BP Location: Left arm) Pulse 70 Temp 96.9 ??F (36.1 ??C) (Temporal) Resp 16 Wound (used by OP [facility]I only) Left other (see comments) (Active) Thickness/Stage full thickness 02/09/21 1306 Dressing Appearance intact 02/09/21 1306 Base granulating 02/09/21 1306 Periwound intact 02/09/21 1306 Periwound Temperature warm 02/09/21 1306 Periwound Skin Turgor soft 02/09/21 1306 Edges open 02/09/21 1306 Length (cm) 1.2 02/09/21 1306 Width (cm) 1.4 02/09/21 1306 Depth (cm) 0.6 02/09/21 1306 Wound (cm^2) 1.68 cm^2 02/09/21 1306 Wound Volume (cm^3) 1.01 cm^3 02/09/21 1306 Wound healing % 58.82 02/09/21 1306 Undermining [Depth (cm)/Location] 1.3cm 6-10 o'clock 02/09/21 1306 Drainage Characteristics/Odor serosanguineous 02/09/21 1306 Drainage Amount moderate 02/09/21 1306 Care, Wound non-select wound debridement performed 02/09/21 1306 Wound (used by OP [facility] only) 01/23/21 1248 Left (Active) Thickness/Stage full thickness 02/09/21 1306 Dressing Appearance intact 02/09/21 1306 Base granulating 02/09/21 1306 Periwound intact;redness 02/09/21 1306 Periwound Temperature warm 02/09/21 1306 Periwound Skin Turgor soft 02/09/21 1306 Edges open 02/09/21 1306 Length (cm) 4.8 02/09/21 1306 Width (cm) 1.6 02/09/21 1306 Depth (cm) 0.4 02/09/21 1306 Wound (cm^2) 7.68 cm^2 02/09/21 1306 Wound Volume (cm^3) 3.07 cm^3 02/09/21 1306 Wound healing % 46.11 02/09/21 1306 Undermining [Depth (cm)/Location] 0 02/09/21 1306 Drainage Characteristics/Odor serosanguineous 02/09/21 1306 Drainage Amount moderate 02/09/21 1306 Care, Wound non-select wound debridement performed 02/09/21 1306 Procedure: Topical anesthetic of 4% lidocaine was applied,non-selective debridement was performed, no bleeding occurred. Patient tolerated procedure well. Procedure: Triamcinolone was applied to the intact skin of the left knee due to redness and itching.Wound redressed with endoform to Left medial knee then black foam wound VAC, and black foam wound VAC to Left knee @ -125mmHg Cont. Plan: Patient will return to the clinic in 1 weeks time February 09, 2021 documented in this encounter Plan of Treatment Upcoming Encounters Date Type Specialty Care Team Description 05/20/2022 Lab Lab documented as of this encounter Visit Diagnoses Diagnosis Open knee wound, left, initial encounter documented in this encounter Care Teams Roll Forming Machine Set Up Operator Relationship Specialty Start Date End Date Froylan Louise MD PCP - General Family Practice 02/22/14 Froylan Louise MD Assigned PCP 03/13/14 2 Esthela Corea, RN Personal Advocate & Liaison Family Medicine 10/16 (PAL) documented as of this encounter
--- OUTSIDE RECORDS SUMMARY | 2022-05-15 22:19 | XMS_ITS | Encounter Summary ---
:1955 Author Organization [place] Address [address] [place] [address] Care Team Providers Name Role Phone Froylan Louise MD Primary Care Provider Unavailable Froylan Louise MD Unavailable Unavailable Esthela Corea RN Unavailable Unavailable Encounter Details Date Type Department Care Team Description 01/26/2021 Travel Social History Tobacco Use Types Packs/Day Years Used Date Smoking Tobacco: Former Cigarettes 2 25 Quit : 08/04/2006 Smokeless Tobacco: Never Comments: 2004 Alcohol Use Standard Drinks/Week Comments Yes 0 (1 standard drink = 0.6 oz pure alcoho l) 4 BEERS A day Alcohol Habits Answer Date Recorded How often do you have a drink containing 4 or more times a w [place] 05/25/2021 alcohol? How many drinks containing [...] you attend yarsanism or Patient refused 2020 latter-day services? Do you belong to any clubs [...] on filedocumented in this encounter Care Teams Garment Manufacturing Supervisor Relationship Specialty Start Date End Date Froylan Louise MD PCP - General Family Practice 02/22/14 Froylan Louise MD Assigned PCP 03/13/14 2 Esthela Corea, RN Personal Advocate & Liaison Family Medicine 10/16 (PAL) documented as of this encounter
--- OUTSIDE RECORDS SUMMARY | 2022-05-15 22:19 | XMS_ITS | Encounter Summary ---
:1955 Author Organization [place] Address [address] [place] [address] Care Team Providers Name Role Phone Froylan Louise MD Primary Care Provider Unavailable Froylan Louise MD Unavailable Unavailable Esthela Corea RN Unavailable Unavailable Reason for Visit Reason Comments Medication Refill Encounter Details Date Type Department Care Team Description 02/02/2021 Refill [employer] Froylan Louise Ra, MD Medication Refill [address] [phone] Social History Tobacco Use [...] you attend jewish or Patient refused 2020 scientologist services? Do [...] been in contact with No / Unsure 02/02/2021 12:54 PM CDT someone who was confirmed or suspected to have Coronavirus / COVID-19? documented as of this encounter Plan of Treatment Upcoming Encounters Date Type Specialty Care Team Description 05/20/2022 Lab Lab documented as of this encounter Visit Diagnoses Diagnosis Moderate persistent asthma, uncomplicate d Unspecified asthma documented in this encounter Care Teams Administrative Operations Coordinator Relationship Specialty Start Date End Date Froylan Louise MD PCP - General Family Practice 02/22/14 Froylan Louise MD Assigned PCP 03/13/14 2 Esthela Corea RN Personal Advocate & Liaison Family Medicine 10/16 (PAL) documented as of this encounter
--- OUTSIDE RECORDS SUMMARY | 2022-05-15 22:19 | XMS_ITS | Encounter Summary ---
:1955 Author Organization [place] Address [address] [place] [address] Care Team Providers Name Role Phone Froylan Louise MD Primary Care Provider Unavailable Froylan Louise MD Unavailable Unavailable Esthela Corea RN Unavailable Unavailable Encounter Details Date Type Department Care Team Description 02/13/2021 Travel Social History Tobacco Use Types Packs/Day Years Used Date Smoking Tobacco: Former Cigarettes 2 25 Quit : 08/04/2006 Smokeless Tobacco: Never Comments: 2004 Alcohol Use Standard Drinks/Week Comments Yes 0 (1 standard drink = 0.6 oz pure alcoho l) 4 BEERS A day Alcohol Habits Answer Date Recorded How often do you have a drink containing 4 or more times a w [place] 05/25/2021 alcohol? How many drinks [...] you attend nondenominational or Patient refused 2020 christian services? Do you belong to any clubs [...] on filedocumented in this encounter Care Teams Retail Manager Relationship Specialty Start Date End Date Froylan Louise MD PCP - General Family Practice 02/22/14 Froylan Louise MD Assigned PCP 03/13/14 2 Esthela Corea, RN Personal Advocate & Liaison Family Medicine 10/16 (PAL) documented as of this encounter
--- OUTSIDE RECORDS SUMMARY | 2022-05-15 22:19 | XMS_ITS | Encounter Summary ---
:1955 Author Organization [place] Address [facility]0 [facility] [address] Care Team Providers Name Role Phone Froylan Louise MD Primary Care Provider Unavailable Froylan Louise MD Unavailable Unavailable Esthela Corea RN Unavailable Unavailable Reason for Visit Reason Comments WOUND CARE Encounter Details Date Type Department Care Team Description 01/23/2021 Hospital Encounter [facility] Uriel Nuñez Op en knee wound, Wound Clinic Latesha Conrad MD left, initial [address] [place] [phone] Social History Tobacco Use Types Packs/Day [...] you attend faith or Patient refused 2020 christian services? Do [...] place to sleep or slept in a assisted (including now)? Sex Assigned at Date Recorded Not on file COVID-19 Exposure Response Date Recorded In the last month, have you been in contact with No / Unsure 02/13/2021 11:28 AM CDT someone who was confirmed or suspected to have Coronavirus / COVID-19? documented as of this encounter Last Filed Vital Signs Vital Sign Reading Time Taken Comments Blood Pressure 137/77 01/23/2021 12:42 PM CDT Pulse 74 01/23/2021 12:42 PM CDT Temperature 36.6 ??C (97.9 ??F) 01/23/2021 12:42 PM CDT Respiratory Rate 16 01/23/2021 12:42 PM CDT Oxygen Saturation - - Inhaled Oxygen Concentration - - Weight - - Height - - Body Mass Index - - documented in this encounter Discharge Instructions Discharge InstructionsWEsthela freed RN - 01/23/2021 1:[address] [facility] [address] [place] [phone] Call us at [phone] if you have any questions about your [...] Diosmin 1 tablet twice daily order from www.veinformula.[employer] or call [phone] Wound care recommendations to Left Knee After cleansing with saline or wound cleanser, apply small amount of VASHE on gauze, lay into wound bed, let sit for 15-30 minutes, remove gauze (do not rinse) then apply dressing. Skin Care: Use Skin Prep to joan-wound skin Endoform Antimicrobial NPWT using black foam and pressure set to 125mmHg continuous suction. Change dressing MWF. Compression: Apply clean compression Yellow Stripe and Neo Wrap Remove compression dressing if toes turn blue and/or start to feel numb and is not relieved by elevating the leg for one hour. Walk as much as you can. When you sit raise your ankle above your hips to promote wound healing. Marjan Nuñez M.D.. January 23, 2021 Wound Clinic follow up If you had a positive experience please indicate that on your patient satisfaction survey form that [facility] will be sending you. It was a [...] any billing related questions please call the [facility] Business office at [phone]. 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 current use of anticoagulants with INR goal [...] 1000 MCG tablet by mouth every morning Qzqaxbkoemi-Ywjnlezhi-Pfqan Inhale 1 puff 0 02/05/2021 terol (TRELEGY ELLIPTA) into the lungs 100-62.5-25 MCG/INH oral every morning inhaler gabapentin (NEURONTIN) 300 Take 1 capsule 90 [...] by 0 02/19/2021 capsule mouth At Bedtime triamcinolone (KENALOG) 0.1 APPLY TO 30 g 1 01/10/20 21 04/19/2021 % external AFFECTED AREA creamIndications: Lichen TWICE A DAY planus vitamin D3 Take 1 capsule 0 11/30/2021 (CHOLECALCIFEROL) 250 mcg by mouth every (20599 units) capsule morning warfarin ANTICOAGULANT TAKE 5MG [...] encounter Progress Notes Uriel Nuñez MD - 01/23/2021 1:26 PM CDT Images from the original note were not included. [facility] [place] Progress Note Subject: Virgil Christine status post incision drainage left knee hematoma, treatment with VAC vera flow, transition to standard VAC, denies fevers chills sweats. Patient Active Problem List Diagnosis ??? Anticardiolipin [...] without mention of complication Hemorrhoids Exam: BP 137/77 (BP Location: Left arm) Pulse 74 Temp 97.9 ??F (36.6 ??C) (Temporal) Resp 16 Wound (used by OP [facility] only) Left other (see comments) (Active) Thickness/Stage full thickness 01/23/21 1247 Dressing Appearance moist drainage 01/23/21 1247 Base granulating 01/23/21 1247 Periwound intact 01/23/21 1247 Periwound Temperature warm 01/23/21 1247 Periwound Skin Turgor soft 01/23/21 1247 Edges open 01/23/21 1247 Length (cm) 1.5 01/23/21 1247 Width (cm) 2 01/23/21 1247 Depth (cm) 0.8 01/23/21 1247 Wound (cm^2) 3 cm^2 01/23/21 1247 Wound Volume (cm^3) 2.4 cm^3 01/23/21 1247 Wound healing % 26.47 01/23/21 1247 Tunneling [Depth (cm)/Location] 1-5 o'clock / 6.4 01/23/21 1247 Drainage Characteristics/Odor serosanguineous 01/23/21 1247 Drainage Amount moderate 01/23/21 1247 Care, Wound non-select wound debridement performed;negative pressure wound therapy 01/23/21 1247 Wound (used by OP I only) 01/23/21 1248 Left (Active) Thickness/Stage full thickness 01/23/21 1247 Dressing Appearance moist drainage 01/23/21 1247 Base granulating 01/23/21 1247 Periwound intact 01/23/21 1247 Periwound Temperature warm 01/23/21 1247 Periwound Skin Turgor soft 01/23/21 1247 Edges open 01/23/21 1247 Length (cm) 5.7 01/23/21 1247 Width (cm) 2.5 01/23/21 1247 Depth (cm) 0.8 01/23/21 1247 Wound (cm^2) 14.25 cm^2 01/23/21 1247 Wound Volume (cm^3) 11.4 cm^3 01/23/21 1247 Undermining [Depth (cm)/Location] 7-11 o'cock / 7..8 01/23/21 1247 Drainage Characteristics/Odor serosanguineous 01/23/21 1247 Drainage Amount moderate 01/23/21 1247 Care, Wound non-select wound debridement performed;negative pressure wound therapy 01/23/21 1247 Granulation tissue present left knee wounds , Undermining persist no granulation tissue, will apply endoform to area of undermining, 2 separate sponges placed, negative pressure wound therapy. Impression: Left knee hematoma status post incision and drainage, VAC vera flow utilization, now negative pressure wound therapy utilization chronic anticoagulation Plan: Antimicrobial endoform in area of undermining, sponge on knee, separate sponge at counterincision site, negative pressure wound therapy Patient will return to the clinic in 1 weeks time Uriel Nuñez MD on 01/23/2021 at 1:27 PM documented in this encounter Miscellaneous Notes Addendum Note - Vianney Montano - 01/23/2021 11:59 PM CDT Encounter addended by: Vianney Montano on: 02/13/2021 11:44 AM Actions taken: Charge Capture section accepted Addendum Note - Esthela Ro RN - 01/23/2021 1:33 PM CDT Encounter addended by: Esthela Ro, RN on: 01/23/2021 1:33 PM Actions taken: Charge Capture section accepted documented in this encounter Plan of Treatment Upcoming Encounters Date Type Specialty Care Team Description 05/20/2022 Lab Lab documented as of this encounter Visit Diagnoses Diagnosis Open knee wound, left, initial encounter documented in this encounter Care Teams Clinical Analyst Relationship Specialty Start Date End Date Froylan Louise MD PCP - General Family Practice 02/22/14 Froylan Louise MD Assigned PCP 03/13/14 2 Esthela Corea, RN Personal Advocate & Liaison Family Medicine 10/16 (PAL) documented as of this encounter
--- OUTSIDE RECORDS SUMMARY | 2022-05-15 22:19 | XMS_ITS | Encounter Summary ---
:1955 Author Organization [facility] Address [address] [place] [address] Care Team Providers Name Role Phone Froylan Louise MD Primary Care Provider Unavailable Froylan Louise MD Unavailable Unavailable Esthela Corea RN Unavailable Unavailable Encounter Details Date Type Department Care Team Description 02/05/2021 Travel Social History Tobacco Use Types Packs/Day Years Used Date Smoking Tobacco: Former Cigarettes 2 25 Quit : 08/04/2006 Smokeless Tobacco: Never Comments: 2004 Alcohol Use Standard Drinks/Week Comments Yes 0 (1 standard drink = 0.6 oz pure alcoho l) 4 BEERS A day Alcohol Habits Answer Date Recorded How often do you have a drink containing 4 or more times a w [place] 05/25/2021 alcohol? How many drinks containing alcohol [...] you attend buddhism or Patient refused 2020 mormonism services? Do [...] on filedocumented in this encounter Care Teams Aircraft Fuselage Framer Relationship Specialty Start Date End Date Froylan Louise MD PCP - General Family Practice 02/22/14 Froylan Louise MD Assigned PCP 03/13/14 2 Esthela Corea, RN Personal Advocate & Liaison Family Medicine 10/16 (PAL) documented as of this encounter
--- OUTSIDE RECORDS SUMMARY | 2022-05-15 22:19 | XMS_ITS | Encounter Summary ---
:1955 Author Organization [place] Address [address] [place] [address] Care Team Providers Name Role Phone Froylan Louise MD Primary Care Provider Unavailable Froylan Louise MD Unavailable Unavailable Esthela Corea RN Unavailable Unavailable Encounter Details Date Type Department Care Team Description 01/23/2021 Travel Social History Tobacco Use Types Packs/Day [...] or relatives? How often do you attend restorationism or Patient refused 2020 buddhist services? Do you belong to any clubs or Yes 05/25/2021 organizations such as restorationism groups, unions, fraternal or athletic groups, or [...] been in contact with No / Unsure 01/23/2021 12:33 PM CDT someone who was confirmed or suspected to have Coronavirus / COVID-19? documented as of this encounter Plan of Treatment Upcoming Encounters Date Type Specialty Care Team Description 05/20/2022 Lab Lab documented as of this encounter Visit Diagnoses Not on filedocumented in this encounter Care Teams Senior Construction Manager Relationship Specialty Start Date End Date Froylan Louise MD PCP - General Family Practice 02/22/14 Froylan Louise MD Assigned PCP 03/13/14 2 Esthela Corea, RN Personal Advocate & Liaison Family Medicine 10/16 (PAL) documented as of this encounter
--- OUTSIDE RECORDS SUMMARY | 2022-05-15 22:19 | XMS_ITS | Encounter Summary ---
:1955 Author Organization [place] Address [address] [place] [address]. [place] [address] Care Team Providers Name Role Phone Froylan Louise MD Primary Care Provider Unavailable Froylan Louise MD Unavailable Unavailable Esthela Corea RN Unavailable Unavailable Encounter Details Date Type Department Care Team Description 01/29/2021 Anticoagulation [facility], Chronic deep vein thrombosis (DVT) of lower extremity, unspecified laterality, unspecified vein (H) (Primary Dx); Therapy Visit Anticoagulation Diana Conrad RN longterm current use of anticoagulant therapy Clinic [address] [place] [address] Social History Tobacco Use Types [...] containing 4 or more times a w [place] 05/25/2021 alcohol? How many drinks containing alcohol [...] or relatives? How often do you attend uatsdin or Patient refused 2020 anabaptist services? Do you belong to any clubs or Yes 05/25/2021 organizations such as uatsdin groups, unions, fraternal or athletic groups, or [...] encounter Progress Notes Diana Nielsen RN - 01/29/2021 5:06 PM CDT ANTICOAGULATION MANAGEMENT Virgil Christine 65 year old male is on warfarin with therapeutic INR result. (Goal INR 2.0-3.0) Recent labs: (last 7 days) 01/29/21 1524 INR 4.6* ASSESSMENT Source(s): Chart Review and Patient/Caregiver Call ??? Warfarin doses taken: Warfarin taken as instructed ??? Diet: No new diet changes identified ??? New illness, injury, or hospitalization: No ??? Medication/supplement changes: None noted ??? Signs or symptoms of bleeding or clotting: No ??? Previous INR: Supratherapeutic ??? Additional findings: None PLAN Recommended plan for temporary change(s) affecting INR Dosing Instructions: Hold dose then continue your current warfarin dose with next INR in 1 week Summary As of 01/29/2021 Full warfarin instructions: 01/29: Hold; Otherwise 5 mg every Mon, Wed, Fri; 7.5 mg all other days Next INR check: 02/05/2021 Telephone call with Virgil who verbalizes understanding and agrees to plan Lab visit scheduled Education provided: Please call back if any changes to your diet, medications or how you've been taking warfarin, Monitoring for bleeding signs and symptoms and When to seek medical attention/emergencycare Plan made per [facility] anticoagulation protocol Diana Nielsen, RN Anticoagulation Clinic 01/29/2021 Anticoagulation Episode Summary Current INR goal: 2.0-3.0 TTR: 68.7 % (11.8 mo) Target end date: Indefinite Send INR reminders to: [facility] Indications Chronic deep vein thrombosis (DVT) of lower extremity unspecified laterality unspecified vein (H) [I82.509] Long-term (current) use of anticoagulants [Z79.01] [Z79.01] Comments: Anticoagulation Care Providers Provider Role Specialty Phone number Froylan Louise MD Referring Family Medicine [phone] documented in this encounter Plan of Treatment Upcoming Encounters Date Type Specialty Care Team Description 05/20/2022 Lab Lab documented as of this encounter Visit Diagnoses Diagnosis Chronic deep vein thrombosis (DVT) of lo wer extremity, unspecified laterality, unspecified vein (H) - Primary long term care phlebotomist current use of anticoagulant t herapy documented in this encounter Care Teams Information Technology Professor Relationship Specialty Start Date End Date Froylan Louise MD PCP - General Family Practice 02/22/14 Froylan Louise MD Assigned PCP 03/13/14 2 Esthela Corea, RN Personal Advocate & Liaison Family Medicine 10/16 (PAL) documented as of this encounter
--- OUTSIDE RECORDS SUMMARY | 2022-05-15 22:19 | XMS_ITS | Encounter Summary ---
:1955 Author Organization [place] Address [facility] [place] [address] Care Team Providers Name Role Phone Froylan Louise MD Primary Care Provider Unavailable Froylan Louise MD Unavailable Unavailable Esthela Corea RN Unavailable Unavailable Reason for Visit Reason Comments WOUND CARE Encounter Details Date Type Department Care Team Description 01/26/2021 Hospital Encounter [facility] Uriel Nuñez Op en knee wound, Wound Clinic Latesha Conrad MD left, initial [address] encounter [address] [place] [phone] Social History Tobacco Use Types Packs/Day Years Used Date Smoking Tobacco: Former Cigarettes 2 25 Quit : 08/04/2006 Smokeless Tobacco: Never Comments: 2004 Alcohol Use Standard Drinks/Week Comments Yes 0 (1 standard drink = 0.6 oz pure alcoho l) 4 BEERS A day Alcohol Habits Answer Date Recorded How often do you have a drink containing 4 or more times a w [place] 05/25/2021 alcohol? How many drinks containing alcohol [...] you attend catholic or Patient refused 2020 tenriism services? Do [...] Sign Reading Time Taken Comments Blood Pressure 153/79 01/26/2021 12:53 PM CDT Pulse 76 01/26/2021 12:53 PM CDT Temperature 36.2 ??C (97.1 ??F) 01/26/2021 12:53 PM CDT Respiratory Rate 16 01/26/2021 12:53 PM CDT Oxygen Saturation - - Inhaled Oxygen Concentration - - Weight - - Height - - Body Mass Index - - documented in this encounter Discharge Instructions Discharge InstructionsAlfreda Wahl RN - 01/26/2021 1:00 PM CDT Images from the original note were not included. [facility] [address] [place] [phone] Call us at [phone] if you have any questions about your [...] Diosmin 1 tablet twice daily order from [email or web address].docTrackr or call [phone] Wound care recommendations to Left Knee After [...] clean compression Yellow Stripe and Neo Wrap January 26, 2021 If you had a positive experience please indicate on your patient satisfaction survey form that [facility] will be sending you. If you have any billing related questions please call the [facility] Business office at [phone]. 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 [facility] [place] Nurse Note Subject: Virgil Christine presents for nurse only visit for wound check and wound VAC dressing change. Exam: BP (!) 153/79 (BP Location: Left arm) Pulse 76 Temp 97.1 ??F (36.2 ??C) (Temporal) Resp 16 Wound (used by OP WHI only) Left other (see comments) (Active) Thickness/Stage full thickness 01/26/21 1258 Dressing Appearance intact 01/26/21 1258 Base granulating 01/26/21 1258 Periwound intact 01/26/21 1258 Periwound Temperature warm 01/26/21 1258 Periwound Skin Turgor soft 01/26/21 1258 Edges open 01/26/21 1258 Length (cm) 1.4 01/26/21 1258 Width (cm) 1.6 01/26/21 1258 Depth (cm) 1.2 01/26/21 1258 Wound (cm^2) 2.24 cm^2 01/26/21 1258 Wound Volume (cm^3) 2.69 cm^3 01/26/21 1258 Wound healing % 45.1 01/26/21 1258 Tunneling [Depth (cm)/Location] 0 01/26/21 1258 Undermining [Depth (cm)/Location] 2.4cm 7-9 o'clock 01/26/21 1258 Drainage Characteristics/Odor serosanguineous 01/26/21 1258 Drainage Amount moderate 01/26/21 1258 Care, Wound non-select wound debridement performed 01/26/21 1258 Wound (used by OP WHI only) 01/23/21 1248 Left (Active) Thickness/Stage full thickness 01/26/21 1258 Dressing Appearance intact 01/26/21 1258 Base granulating 01/26/21 1258 Periwound intact 01/26/21 1258 Periwound Temperature warm 01/26/21 1258 Periwound Skin Turgor soft 01/26/21 1258 Edges open 01/26/21 1258 Length (cm) 5.5 01/26/21 1258 Width (cm) 2.2 01/26/21 1258 Depth (cm) 1 01/26/21 1258 Wound (cm^2) 12.1 cm^2 01/26/21 1258 Wound Volume (cm^3) 12.1 cm^3 01/26/21 1258 Wound healing % 15.09 01/26/21 1258 Undermining [Depth (cm)/Location] 4.3cm 1-5 o'clock 01/26/21 1258 Drainage Characteristics/Odor serosanguineous 01/26/21 1258 Drainage Amount moderate 01/26/21 1258 Care, Wound non-select wound debridement performed 01/26/21 1258 Procedure: Topical anesthetic of 4% lidocaine was applied,non-selective debridement was performed, no bleeding occurred. Patient tolerated procedure well. Procedure: Wound was cleaned with VASHE. Wound redressed with black foam NPWT @ -125mmHg cont. Pt did not have edemawear on at today's visit but states he will apply once he gets home. Plan: Patient will return to the clinic on 01/29. January 26, 2021 documented in this encounter Plan of Treatment Upcoming Encounters Date Type Specialty Care Team Description 05/20/2022 Lab Lab documented as of this encounter Visit Diagnoses Diagnosis Open knee wound, left, initial encounter documented in this encounter Care Teams Deputy Prosecuting Attorney Relationship Specialty Start Date End Date Froylan Louise MD PCP - General Family Practice 02/22/14 Froylan Louise MD Assigned PCP 03/13/14 2 Esthela Corea, CINDY Personal Advocate & Liaison Family Medicine 10/16 (PAL) documented as of this encounter
--- OUTSIDE RECORDS SUMMARY | 2022-05-15 22:19 | XMS_ITS | Encounter Summary ---
:1955 Author Organization [place] Address [address] [place] [id number] Care Team Providers Name Role Phone Froylan Louise MD Primary Care Provider Unavailable Froylan Louise MD Unavailable Unavailable Esthela Corea RN Unavailable Unavailable Encounter Details Date Type Department Care Team Description 02/02/2021 Travel Social History Tobacco Use Types Packs/Day Years Used Date Smoking Tobacco: Former Cigarettes 2 25 Quit : 08/04/2006 Smokeless Tobacco: Never Comments: 2004 Alcohol Use Standard Drinks/Week Comments Yes 0 (1 standard drink = 0.6 oz pure alcoho l) 4 BEERS A day Alcohol Habits Answer Date Recorded How often do you have a drink containing 4 or more times a w [place] 05/25/2021 alcohol? How many drinks containing alcohol [...] or relatives? How often do you attend zoroastrian or Patient refused 2020 buddhism services? Do you belong to any clubs or Yes 05/25/2021 organizations such as zoroastrian groups, unions, fraternal or athletic groups, or [...] on filedocumented in this encounter Care Teams Outreach Specialist Relationship Specialty Start Date End Date Froylan Louise MD PCP - General Family Practice 02/22/14 Froylan Lousie MD Assigned PCP 03/13/14 2 Esthela Corea, RN Personal Advocate & Liaison Family Medicine 10/16 (PAL) documented as of this encounter
--- OUTSIDE RECORDS SUMMARY | 2022-05-15 22:19 | XMS_ITS | Encounter Summary ---
:1955 Author Organization [place] Address [facility] [place] [address] Care Team Providers Name Role Phone Froylan Louise MD Primary Care Provider Unavailable Froylan Louise MD Unavailable Unavailable Esthela Corea RN Unavailable Unavailable Reason for Visit Reason Comments WOUND CARE Encounter Details Date Type Department Care Team Description 02/05/[address] [facility] Uriel Nuñez Op en knee wound, Wound Clinic Latesha Conrad MD left, initial [address] encounter [address] [place] [phone] Social History Tobacco Use Types Packs/Day [...] or more times a w [place] 05/25/2021 alcohol? How many drinks containing alcohol [...] you attend hinduism or Patient refused 2020 worship services? Do [...] Sign Reading Time Taken Comments Blood Pressure 144/80 02/05/2021 2:56 PM CDT Pulse 80 02/05/2021 2:56 PM CDT Temperature 35.9 ??C (96.6 ??F) 02/05/2021 2:56 PM CDT Respiratory Rate 18 02/05/2021 2:56 PM CDT Oxygen Saturation - - Inhaled Oxygen Concentration - - Weight - - Height - - Body Mass Index - - documented in this encounter Discharge Instructions Discharge InstructionsWEsthela freed RN - 02/05/2021 3:30 PM CDT [facility] [address] [place] [phone] Call us at [phone] if you have any questions about your [...] Diosmin 1 tablet twice daily order from [email or web address] or call [phone] Wound care recommendations to Left Knee After [...] promote wound healing. Marjan Nuñez M.D.. February 05, 2021 Wound Clinic follow up as scheduled If you had a positive experience please indicate that on your patient satisfaction survey form that [facility] will be sending you. It [...] any billing related questions please call the [facility] Business office at [phone]. 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 [facility] [place] Progress Note Subject: Virgil Christine status post incision, drainage, debridement, left knee hematoma January 15, 2021,current negative pressure wound VAC utilization with excellent outcomes, undermining and bridging between the knee wound and medial thigh wound has now been eliminated, remains on anticoagulant. Patient Active Problem List Diagnosis ??? Anticardiolipin antibody positive ??? Mild persistent asthma ??? Health Assisted ? ? Hyperlipidemia LDL goal <130 ??? [...] mention of complication Hemorrhoids Exam: BP (!) 144/80 (BP Location: Left arm) Pulse 80 Temp (!) 96.6 ??F (35.9 ??C) (Temporal) Resp 18 Wound (used by OP WHI only) Left other (see comments) (Active) Thickness/Stage full thickness 02/05/21 1456 Dressing Appearance intact 02/05/21 1456 Base granulating 02/05/21 1456 Periwound intact 02/05/21 1456 Periwound Temperature warm 02/05/21 1456 Periwound Skin Turgor soft 02/05/21 1456 Edges open 02/05/21 1456 Length (cm) 1 02/05/21 1456 Width (cm) 1.3 02/05/21 1456 Depth (cm) 1 02/05/21 1456 Wound (cm^2) 1.3 cm^2 02/05/21 1456 Wound Volume (cm^3) 1.3 cm^3 02/05/21 1456 Wound healing % 68.14 02/05/21 1456 Undermining [Depth (cm)/Location] 5-10 O'clock/0.8cm 02/05/21 1456 Drainage Characteristics/Odor serosanguineous 02/05/21 1456 Drainage Amount moderate 02/05/21 1456 Care, Wound non-select wound debridement performed 02/05/21 1456 Wound (used by OP WHI only) 01/23/21 1248 Left (Active) Thickness/Stage full thickness 02/05/21 1456 Dressing Appearance moist drainage 02/05/21 1456 Base granulating 02/05/21 1456 Periwound intact 02/05/21 1456 Periwound Temperature warm 02/05/21 1456 Periwound Skin Turgor soft 02/05/21 145 Edges open 02/05/21 145 Length (cm) 4.5 02/05/21 1456 Width (cm) 1.7 02/05/21 1456 Depth (cm) 0.7 02/05/21 145 Wound (cm^2) 7.65 cm^2 02/05/21 145 Wound Volume (cm^3) 5.36 cm^3 02/05/21 145 Wound healing % 46.32 02/05/21 1456 Undermining [Depth (cm)/Location] 1-5 O'clock/1.5 02/05/21 1456 Drainage Characteristics/Odor serosanguineous 02/05/21 1456 Drainage Amount moderate 02/05/21 1456 Care, Wound non-select wound debridement performed 02/05/211455 Wound resolving well, undermining eliminated between the wound and medial thigh wound, wound was treated with knife curette to remove biofilm, treated with hypochlorous acid, silver nitrate, no cellulitis, no odor. Negative pressure wound therapy, black sponge, placed in the 2 wounds per standard. Procedure: Patient was determined to be capable of making their own medical decisions and informed consent was obtained. Topical anesthetic of 4% lidocaine was applied, debridement was performed using a knife curette blade down to and including subcutaneous tissue and biofilm bleeding controlled with light pressure and application of silver nitrate. Patient tolerated procedure well. Impression: Status post debridement left knee hematoma, chronic anticoagulation Plan: Anticipate he can return to work in 1 to 2 weeks, no provided, will continue VAC for likely anadditional 2 weeks given that wounds are in the joan- knee region with there is significant flexion, he has made significant progress, stopping negative pressure wound therapy utilization at this time may result in either stalling of wound or regression. Patient will return to the clinic in 1 weeks time Uriel Nuñez MD on 02/05/2021 at 3:23 PM documented in this encounter Plan of Treatment Upcoming Encounters Date Type Specialty Care Team Description 05/20/2022 Lab Lab documented as of this encounter Visit Diagnoses Diagnosis Open knee wound, left, initial encounter documented in this encounter Care Teams Manager Inventory Management Relationship Specialty Start Date End Date Froylan Louise MD PCP - General Family Practice 02/22/14 Froylan Louise MD Assigned PCP 03/13/14 2 Esthela Corea, RN Personal Advocate & Liaison Family Medicine 10/16 (PAL) documented as of this encounter
--- OUTSIDE RECORDS SUMMARY | 2022-05-15 22:19 | XMS_ITS | Encounter Summary ---
:1955 Author Organization [place] Address [facility] [place] [address] Care Team Providers Name Role Phone Froylan Louise MD Primary Care Provider Unavailable Froylan Louise MD Unavailable Unavailable Esthela Corea RN Unavailable Unavailable Reason for Visit Reason Comments WOUND CARE Encounter Details Date Type Department Care Team Description 02/16/2021 Hospital Encounter [facility] Uriel Nuñez Op en knee wound, Wound Clinic Latesha Conrad MD left, initial [address] encounter [address] [place] [phone] Social History Tobacco Use Types Packs/Day Years Used Date Smoking Tobacco: Former Cigarettes 2 25 Quit : 08/04/2006 Smokeless Tobacco: Never Comments: 2004 Alcohol Use Standard Drinks/Week Comments Yes 0 (1 standard drink = 0.6 oz pure alcoho l) 4 BEERS A day Alcohol Habits Answer Date Recorded How often do you have a drink containing 4 or more times a w [place] 05/25/2021 alcohol? How many drinks containing alcohol [...] you attend methodist or Patient refused 2020 baptist services? Do you belong to any clubs [...] Sign Reading Time Taken Comments Blood Pressure 143/81 02/16/2021 1:16 PM CDT Pulse 106 02/16/2021 1:16 PM CDT Temperature 36.1 ??C (97 ??F) 02/16/2021 1:16 PM CDT Respiratory Rate 16 02/16/2021 1:16 PM CDT Oxygen Saturation - - Inhaled Oxygen Concentration - - Weight - - Height - - Body Mass Index - - documented in this encounter Discharge Instructions Discharge InstructionsAlfreda Wahl RN - 02/16/2021 1:23 PM CDT Images from the original note were not included. [facility] [address] [place] [phone] Call us at [phone] if you have any questions about your [...] foam into tunnel to lateral wound; NPWT -150mmHg continuous therapy February 16, 2021 If you had a positive experience please indicate on your patient satisfaction survey form that [facility] will be sending you. If you have any billing related questions please call the [facility] Business office at [phone]. The clinic staff does not handle billing [...] proximal vein of both lower extremities (H), prison current use of anticoagulants with INR [...] 11/30/2021 (CHOLECALCIFEROL) 250 mcg by mouth every (18338 units) capsule morning warfarin ANTICOAGULANT TAKE 5MG TABLET 78 tablet 1 10/27/19 21 04/19/2021 (COUMADIN) 7.5 MG ON EVERY FRI AND tabletIndications: Acute 7.5MG TABLET ON deep vein thrombosis (DVT) ALL OTHER DAYS of proximal vein of both OF THE WEEK. lower extremities (H) zolpidem ER (AMBIEN CR) TAKE 1 TABLET BY 30 tablet 0 202002/27/2021 12.5 MG CR MOUTH EVERY DAY tabletIndications: AT BEDTIME Insomnia, unspecified type NEEDED FOR SLEEP documented as of this encounter Progress Notes Alfreda Wahl RN - 02/16/2021 1:45 PM CDT Images from the original note were not included. [facility] [place] Nurse Note Subject: Virgil Christine presents for nurse only visit for wound check and dressing change. Exam: BP (!) 143/81 (BP Location: Left arm) Pulse 106 Temp 97 ??F (36.1 ??C) (Temporal) Resp 16 Wound (used by OP WHI only) Left other (see comments) (Active) Thickness/Stage full thickness 02/16/21 1323 Dressing Appearance intact 02/16/21 1323 Base granulating 02/16/21 1323 Periwound intact 02/16/21 1323 Periwound Temperature warm 02/16/21 1323 Periwound Skin Turgor soft 02/16/21 1323 Edges open 02/16/21 1323 Length (cm) 0.8 02/16/21 1323 Width (cm) 1.6 02/16/21 1323 Depth (cm) 0.5 02/16/21 1323 Wound (cm^2) 1.28 cm^2 02/16/21 1323 Wound Volume (cm^3) 0.64 cm^3 02/16/21 1323 Wound healing % 68.63 02/16/21 1323 Tunneling [Depth (cm)/Location] 2.5cm @ 7 o'clock 02/16/21 1323 Undermining [Depth (cm)/Location] 0 02/16/21 1323 Drainage Characteristics/Odor serosanguineous 02/16/21 1323 Drainage Amount moderate 02/16/21 1323 Care, Wound non-select wound debridement performed 02/16/21 1323 Dressing Care dressing applied 02/16/21 1323 Wound (used by OP WHI only) 01/23/21 1248 Left (Active) Thickness/Stage full thickness 02/16/21 1323 Dressing Appearance intact 02/16/21 1323 Base granulating 02/16/21 1323 Periwound intact 02/16/21 1323 Periwound Temperature warm 02/16/21 1323 Periwound Skin Turgor soft 02/16/21 1323 Edges open 02/16/21 1323 Length (cm) 4 02/16/21 1323 Width (cm) 1.8 02/16/21 1323 Depth (cm) 0.2 02/16/21 1323 Wound (cm^2) 7.2 cm^2 02/16/21 1323 Wound Volume (cm^3) 1.44 cm^3 02/16/21 1323 Wound healing % 49.47 02/16/21 1323 Drainage Characteristics/Odor serosanguineous 02/16/21 1323 Drainage Amount moderate 02/16/21 1323 Care, Wound non-select wound debridement performed 02/16/21 1323 Dressing Care dressing applied 02/16/21 1323 Procedure: Topical anesthetic of 4% lidocaine was applied,non-selective debridement was performed, no bleeding occurred. Patient tolerated procedure well. Procedure: Triamcinolone cream applied to intact skin on the knee. Wound redressed with black foam wound VAC -150mmHg Cont. Plan: Patient will return to the clinic in 1 weeks time February 16, 2021 documented in this encounter Plan of Treatment Upcoming Encounters Date Type Specialty Care Team Description 05/20/2022 Lab Lab documented as of this encounter Visit Diagnoses Diagnosis Open knee wound, left, initial encounter documented in this encounter Care Teams Manager Disaster Recovery Relationship Specialty Start Date End Date Froylan Louise MD PCP - General Family Practice 02/22/14 Froylan Louise MD Assigned PCP 03/13/14 2 Esthela Corea RN Personal Advocate & Liaison Family Medicine 10/16 (PAL) documented as of this encounter
--- OUTSIDE RECORDS SUMMARY | 2022-05-15 22:19 | XMS_ITS | Encounter Summary ---
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 05/25/2021 alcohol? How many drinks containing alcohol [...] or relatives? How often do you attend sabianism or Patient refused 2020 nondenominational services? Do you belong to any clubs or Yes 05/25/2021 organizations such as sabianism groups, unions, fraternal or athletic groups, or [...] Comme nts INR POINT OF CARE Routine 02/05/2021 4:15 PM Chronic deep vein Results for this CDT thrombosis (DVT) of procedur e are in lower extremity, the results unspecified section. laterality, unspecified vein (H) [facility] current use of anticoagulant therapy documented in this encounter Results (ABNORMAL) INR point of care (02/05/2021 4:15 PM CDT) P athologist Signature INR 3.8 (H) 0.9 - 1.1 02/05/2021 [facility] 4:21 PM CDT Specimen Anatomical Collection Method / Collection Time Recei lindy Time (Source) Location / Volume Laterality Blood STRUCTURE OF Venipuncture / 02/05/2021 4:15 02/05/2021 4:15 FINGER OF RIGHT Unknown PM CDT PM CDT HAND / Unknown Narrative [facility] - 02/05/2021 4:21 PM CDT This test is intended for monitoring Cou madin therapy. Results are not accurate in patients with prolonged INR due to facto r deficiency. Froylan Louise MD LAB - BLOOD ORDERABLES Performing Organization Address City/State/ZIP Code Phon [place] [address] Lab [address] [facility] Lab (no room number, 1st floor of clinic) [place] [address], [facility] [address] [facility], 1st floor of clinic) documented in this encounter Visit Diagnoses Diagnosis Chronic deep vein thrombosis (DVT) of lo wer extremity, unspecified laterality, unspecified vein (H) [facility] current use of anticoagulant t herapy documented in this encounter Care Teams Edge Molder Relationship Specialty Start Date End Date Froylan Louise MD PCP - General Family Practice 02/22/14 Froylan Louise MD Assigned PCP 03/13/14 2 Esthela Corea RN Personal Advocate & Liaison Family Medicine 10/16 (PAL) documented as of this encounter
--- OUTSIDE RECORDS SUMMARY | 2022-05-15 22:19 | XMS_ITS | Encounter Summary ---
:1955 Author Organization [place] Address [facility] [address] Care Team Providers Name Role Phone Froylan Louise MD Primary Care Provider Unavailable Froylan Louise MD Unavailable Unavailable Esthela Corea RN Unavailable Unavailable Reason for Visit Reason Comments WOUND CARE Encounter Details Date Type Department Care Team Description 01/29/2021 Hospital Encounter [facility] Jayesh Yost Open knee wound, Wound Clinic Latesha Viveros PA-C left, initial [address] W[address]ALING encounter [address] [place], [place] [address] [id number] [place], [place] [id number] Social History Tobacco Use Types Packs/Day Years Used Date Smoking Tobacco: Former Cigarettes 2 25 Quit : 08/04/2006 Smokeless Tobacco: Never Comments: 2004 Alcohol Use Standard Drinks/Week Comments Yes 0 (1 standard drink = 0.6 oz pure alcoho l) 4 BEERS A day Alcohol Habits Answer Date Recorded How often do you have a drink containing 4 or more times a w [place] 05/25/2021 alcohol? How many [...] you attend cheondoism or Patient refused 2020 judaism services? Do [...] Sign Reading Time Taken Comments Blood Pressure 142/78 01/29/2021 2:39 PM CDT Pulse 96 01/29/2021 2:39 PM CDT Temperature 35.8 ??C (96.4 ??F) 01/29/2021 2:35 PM CDT Respiratory Rate 16 01/29/2021 2:39 PM CDT Oxygen Saturation - - Inhaled Oxygen Concentration - - Weight - - Height - - Body Mass Index - - documented in this encounter Discharge Instructions Discharge InstructionsAlfreda Wahl RN - 01/29/2021 2:58 PM CDT Images from the original note were not included. [facility] [address] [place] [phone] Call us at [phone] if you have any questions about your [...] Diosmin 1 tablet twice daily order from [email or web address] or call [phone] Wound care recommendations to Left Knee After [...] compression Yellow Stripe and Neo Wrap January 29, 2021 If you had a positive experience please indicate on your patient satisfaction survey form that [facility] will be sending you. If you have any billing related questions please call the [facility] Business office at [phone]. 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 [facility] [place] Nurse Note Subject: Virgil Christine presents for nurse only visit for wound check and Wound VAC dressing change. Exam: BP (!) 142/78 Pulse 96 Temp (!) 96.4 ??F (35.8 ??C) Resp 16 Wound (used by OP [facility]I only) Left other (see comments) (Active) Thickness/Stage full thickness 01/29/21 1437 Dressing Appearance moist drainage 01/29/21 1437 Base granulating 01/29/21 1437 Periwound intact 01/29/21 1437 Periwound Temperature warm 01/29/21 1437 Periwound Skin Turgor soft 01/29/21 1437 Edges open 01/29/21 1437 Length (cm) 5.2 01/29/21 1437 Width (cm) 1.9 01/29/21 1437 Depth (cm) 1 01/29/21 1437 Wound (cm^2) 9.88 cm^2 01/29/21 1437 Wound Volume (cm^3) 9.88 cm^3 01/29/21 1437 Wound healing % -142.16 01/29/21 1437 Undermining [Depth (cm)/Location] 3-4 o'clock / 3.3 01/29/21 1437 Drainage Characteristics/Odor serosanguineous 01/29/21 1437 Drainage Amount moderate 01/29/21 1437 Care, Wound non-select wound debridement performed 01/29/21 1437 Wound (used by OP [facility]I only) 01/23/21 1248 Left (Active) Thickness/Stage full thickness 01/29/21 1437 Dressing Appearance moist drainage 01/29/21 1437 Base granulating 01/29/21 1437 Periwound intact 01/29/21 1437 Periwound Temperature warm 01/29/21 1437 Periwound Skin Turgor soft 01/29/21 1437 Edges open 01/29/21 1437 Length (cm) 1.4 01/29/21 1437 Width (cm) 1.6 01/29/21 1437 Depth (cm) 0.9 01/29/21 1437 Wound (cm^2) 2.24 cm^2 01/29/21 1437 Wound Volume (cm^3) 2.02 cm^3 01/29/21 1437 Wound healing % 84.28 01/29/21 1437 Undermining [Depth (cm)/Location] 6-10 o'clock / 1.2 01/29/21 1437 Drainage Characteristics/Odor serosanguineous 01/29/21 1437 Drainage Amount moderate 01/29/21 1437 Care, Wound non-select wound debridement performed 01/29/21 1437 Procedure: Topical anesthetic of 4% lidocaine was applied,non-selective debridement was performed, no bleeding occurred. Patient tolerated procedure well. Procedure: Periwound skin cleansed with dilute betadine and the wound was cleaned with VASHE. Wound redressed with black foam wound VAC at -125mmHg cont. Then spandage and neo wrap. Plan: Patient will return to the clinic on 02/02/21. January 29, 2021 documented in this encounter Plan of Treatment Upcoming Encounters Date Type Specialty Care Team Description 05/20/2022 Lab Lab documented as of this encounter Visit Diagnoses Diagnosis Open knee wound, left, initial encounter documented in this encounter Care Teams Restaurant Greeter Relationship Specialty Start Date End Date Froylan Louise MD PCP - General Family Practice 02/22/14 Froylan Louise MD Assigned PCP 03/13/14 2 Esthela Corea, RN Personal Advocate & Liaison Family Medicine 10/16 (PAL) documented as of this encounter
--- OUTSIDE RECORDS SUMMARY | 2022-05-15 22:19 | XMS_ITS | Encounter Summary ---
:1955 Author Organization [place] Address [facility] [place] [address] Care Team Providers Name Role Phone Froylan Louise MD Primary Care Provider Unavailable Froylan Louise MD Unavailable Unavailable Esthela Corea RN Unavailable Unavailable Reason for Visit Reason Comments WOUND CARE Encounter Details Date Type Department Care Team Description 02/02/2021 Hospital Encounter [facility] Op en knee wound, Wound Clinic Latesha Conrad MD left, initial [address] [place] [id number] Social History Tobacco Use Types Packs/Day Years Used Date Smoking Tobacco: Former Cigarettes 2 25 Quit : 08/04/2006 Smokeless Tobacco: Never Comments: 2004 Alcohol Use Standard Drinks/Week Comments Yes 0 (1 standard drink = 0.6 oz pure alcoho l) 4 BEERS A day Alcohol Habits Answer Date Recorded How often do you have a drink containing 4 or more times a w [place] 05/25/2021 alcohol? How many drinks containing [...] you attend faith or Patient refused 2020 hinduism services? Do [...] Sign Reading Time Taken Comments Blood Pressure 132/84 02/02/2021 1:02 PM CDT Pulse 78 02/02/2021 1:02 PM CDT Temperature 35.7 ??C (96.3 ??F) 02/02/2021 1:02 PM CDT Respiratory Rate 18 02/02/2021 1:02 PM CDT Oxygen Saturation - - Inhaled Oxygen Concentration - - Weight - - Height - - Body Mass Index - - documented in this encounter Medications at Time [...] proximal vein of both lower extremities (H), FDC current use of anticoagulants with INR [...] 1000 MCG tablet by mouth every morning Mkiddlekmwu-Iinyuggac-Zbhqs Inhale 1 puff 0 02/05/2021 terol (TRELEGY [...] 11/30/2021 (CHOLECALCIFEROL) 250 mcg by mouth every (08406 units) capsule morning warfarin ANTICOAGULANT TAKE 5MG [...] documented as of this encounter Progress Notes Yudith Huber RN - 02/02/2021 1:48 PM CDT Images from the original note were not included. [facility] [place] Nurse Note Subject: Virgil Christine presents for nurse only visit for wound vac dressing change. Pt reports that the TRAC pad was accidentally pulled off and he replaced it MINO without incidence. Exam: BP 132/84 (BP Location: Left arm) Pulse 78 Temp (!) 96.3 ??F (35.7 ??C) (Temporal) Resp 18 Wound (used by OP [facility]I only) Left other (see comments) (Active) Thickness/Stage full thickness 02/02/21 1303 Dressing Appearance intact 02/02/21 1303 Base granulating 02/02/21 1303 Periwound intact 02/02/21 1303 Periwound Temperature warm 02/02/21 1303 Periwound Skin Turgor soft 02/02/21 1303 Edges open 02/02/21 1303 Length (cm) 1.2 02/02/21 1303 Width (cm) 1.3 02/02/21 1303 Depth (cm) 0.7 02/02/21 1303 Wound (cm^2) 1.56 cm^2 02/02/21 1303 Wound Volume (cm^3) 1.09 cm^3 02/02/21 1303 Wound healing % 61.76 02/02/21 1303 Undermining [Depth (cm)/Location] 7-10 O'clock/1.2cm 02/02/21 1303 Drainage Characteristics/Odor serosanguineous 02/02/21 1303 Drainage Amount moderate 02/02/21 1303 Care, Wound non-select wound debridement performed 02/02/21 130 Dressing Care dressing changed;dressing applied 02/02/21 1303 Wound (used by OP [facility]I only) 01/23/21 1248 Left (Active) Thickness/Stage full thickness 02/02/21 1303 Dressing Appearance intact 02/02/21 1303 Base granulating 02/02/21 130 Periwound intact 02/02/21 130 Periwound Temperature warm 02/02/211302 Periwound Skin Turgor soft 02/02/21 130 Edges open 02/02/21 130 Length (cm) 5 02/02/21 1303 Width (cm) 1.9 02/02/21 1303 Depth (cm) 0.8 02/02/21 1303 Wound (cm^2) 9.5 cm^2 02/02/21 1303 Wound Volume (cm^3) 7.6 cm^3 02/02/21 1303 Wound healing % 33.33 02/02/21 1303 Undermining [Depth (cm)/Location] 2-4 O'clock/1.4cm 02/02/21 1303 Drainage Characteristics/Odor serosanguineous 02/02/21 130 Drainage Amount moderate 02/02/21 130 Care, Wound non-select wound debridement performed 02/02/211302 Dressing Care dressing changed;dressing applied 02/02/211302 Procedure: Topical anesthetic of 4% lidocaine was applied,non-selective debridement was performed using VASHE, no bleeding occurred. Patient tolerated procedure well. Procedure #2: Wound was redressed with Endoform to base of wound and undermine areas with 2 single pieces of Black NPWT @ 125mmhg tucked into undermine area with black foam on top of knee covered with drape tape to act as a bolster for wound; good seal and no leaks and canister was not changed Procedure #3: Application of Yellow stripe edema wear was applied. Pt will apply support hose when he arrives home Plan: Patient will return to the clinic Friday JORGE Franklin, RN, CWON February 02, 2021 documented in this encounter Plan of Treatment Upcoming Encounters Date Type Specialty Care Team Description 05/20/2022 Lab Lab documented as of this encounter Visit Diagnoses Diagnosis Open knee wound, left, initial encounter documented in this encounter Care Teams Curb Worker Relationship Specialty Start Date End Date Froylan Louise MD PCP - General Family Practice 02/22/14 Froylan Louise MD Assigned PCP 03/13/14 2 Esthela Corea RN Personal Advocate & Liaison Family Medicine 10/16 (PAL) documented as of this encounter
--- OUTSIDE RECORDS SUMMARY | 2022-05-15 22:19 | XMS_ITS | Encounter Summary ---
:1955 Author Organization [place] Address [address] [place] [id number] Care Team Providers Name Role Phone Froylan Louise MD Primary Care Provider Unavailable Froylan Louise MD Unavailable Unavailable Esthela Corea RN Unavailable Unavailable Encounter Details Date Type Department Care Team Description 01/29/2021 Travel Social History Tobacco Use Types Packs/Day Years Used Date Smoking Tobacco: Former Cigarettes 2 25 Quit : 08/04/2006 Smokeless Tobacco: Never Comments: 2004 Alcohol Use Standard Drinks/Week Comments Yes 0 (1 standard drink = 0.6 oz pure alcoho l) 4 BEERS A day Alcohol Habits Answer Date Recorded How often do you have a drink containing 4 or more times a w [place] 05/25/2021 alcohol? How many drinks containing alcohol [...] or relatives? How often do you attend sabianist or Patient refused 2020 jew services? Do you belong to any clubs or Yes 05/25/2021 organizations such as sabianist groups, unions, fraternal or athletic groups, or [...] for the very basics like Not h ldaonna at all 05/25/2021 food, housing, medical care, [...] on filedocumented in this encounter Care Teams Threshing Department Supervisor Relationship Specialty Start Date End Date Froylan Louise MD PCP - General Family Practice 02/22/14 Froylan Louise MD Assigned PCP 03/13/14 2 Esthela Corea, RN Personal Advocate & Liaison Family Medicine 10/16 (PAL) documented as of this encounter
--- OUTSIDE RECORDS SUMMARY | 2022-05-15 22:20 | XMS_ITS | Encounter Summary ---
:1955 Author Organization [place] Address [facility] [place] [address] Care Team Providers Name Role Phone Froylan Louise MD Primary Care Provider Unavailable Froylan Louise MD Unavailable Unavailable Esthela Corea RN Unavailable Unavailable Reason for Visit Auth/Cert Specialty Diagnoses / Procedures Referred By Contact Refer red To Contact Surgery Diagnoses Open knee wound, left, initial encounter Open knee wound, left, initial encounter [S81.002A] Sh Periop Services Procedures HC DEBRIDEMENT SKIN/SUBQ TISSUE, 1ST 20 SQ CM OR LESS HC DEBRIDEMENT SKIN/SUQ/MUSCLE/FASCIA, 1ST 20 SQ CM OR LESS HC DEBRIDEMENT SKIN/SUQ/MUSCLE/BONE, 1ST 20 SQ CM OR LESS [address] LEFT KNEE WOUND DEBRIDEMENT WITH SONIC 1 AND LINDSEY AFLO VAC PLACEMENT LL2 [place] [phone] Phone: Referral ID Status Reason Start Date Expiration Date Visits Requ ested Visits Authorized [id number] 1 1 Encounter Details Date Type Department Care Team Description 01/15/2021 - Hospital Encounter [facility] Uriel Nuñez Op en knee wound, 01/19/2021 Audrey Conrad MD left, initial Intermediate Care [address] encounter [address] [place] [id number] [place] [id number] Social History Tobacco Use Types Packs/Day Years Used Date Smoking Tobacco: Former Cigarettes 2 25 Quit : 08/04/2006 Smokeless Tobacco: Never Comments: 2004 Alcohol Use Standard Drinks/Week Comments Yes 0 (1 standard drink = 0.6 oz pure alcoho l) 4 BEERS A day Alcohol Habits Answer Date Recorded How often do you have a drink containing 4 or more times a w [place] 05/25/2021 alcohol? How many drinks containing alcohol [...] or relatives? How often do you attend restorationist or Patient refused 2020 congregational services? Do you belong to any clubs or Yes 05/25/2021 organizations such as restorationist groups, unions, fraternal or athletic groups, or [...] been in contact with No / Unsure 01/12/2021 1:00 PM CDT someone who was confirmed or suspected to have Coronavirus / COVID-19? documented as of this encounter Last Filed Vital Signs Vital Sign Reading Time Taken Comments Blood Pressure 121/78 01/19/2021 9:13 AM CDT Pulse 81 01/19/2021 9:13 AM CDT Temperature 36.5 ??C (97.7 ??F) 01/19/2021 7:37 AM CDT Respiratory Rate 16 01/19/2021 7:37 AM CDT Oxygen Saturation 94% 01/19/2021 7:37 AM CDT Inhaled Oxygen Concentration - - Weight 117 kg (258 lb) 01/15/2021 7:37 AM CDT Height 182.9 cm (6') 01/15/2021 7:37 AM CDT Body Mass Index 34.99 01/15/2021 7:37 AM CDT documented in this encounter Discharge Summaries Robin Hodge MD - 01/19/2021 7:25 AM CDT Surgery Discharge Summary Virgil Christine Date of : 1955 Age: [age] year old Date of Admission: 01/15/2021 Date of Discharge: 01/19/2021 Admitting Physician: Uriel Nuñez MD Discharging Service: [facility] General Surgery Primary Provider: Froylan Louise Principle Diagnosis: Open knee wound, left, initial encounter [S81.002A] Secondary Diagnosis: Same Procedures: 01/15/21 - Excisional debridement of left knee wound with creation of medial thigh counterincision for debridement with significant undermining. Application of VAC vera flow - Dr. Uriel Nuñez Brief HPI: Virgil Christine is a 65 year old year-old male who presented to [facility] for elective wound debridement as stated above. Hospital Course: Virgil Christine underwent the surgery without complications and was admitted for monitoring and pain control. Diet was advanced in a step-sher fashion and was tolerated without nausea or emesis. Pain control was achieved with a combination of IV and PO medications. Early ambulation was encouraged. His hospital course remained uncomplicated and he recovered as anticipated. On 01/19, woundvac was changed to standard continuous wound vac. On day of discharge, he was tolerating an oral diet, had good pain control on oral medications, was ambulating independently and remained afebrile. He will follow-up with the surgery clinic in two weeks and was advised to call with any questions or concerns. Inpatient Consultations: No consultations were requested during this admission Labs/Imaging: No results found for this or any previous visit (from the past 24 hour(s)). Disposition: Discharged to home Discharge Condition Discharge condition: Stable Discharge vitals: Blood pressure 126/77, pulse 74, temperature 97.8 ??F (36.6 ??C), temperature source Oral, resp. rate 16, height 1.829 m (6'), weight 117 kg (258 lb), SpO2 97 %. Discharge Medications: Current Discharge Medication List START taking these medications Details polyethylene glycol (MIRALAX) 17 GM/Dose powder Take 17 g by mouth daily Qty: 510 g, Refills: 1 Associated Diagnoses: Open knee wound, left, initial encounter senna-docusate (SENOKOT-S/PERICOLACE) 8.6-50 MG tablet Take 1 tablet by mouth 2 times daily Qty: 60 tablet, Refills: 0 Associated Diagnoses: Open knee wound, left, initial encounter CONTINUE these medications which have CHANGED Details amoxicillin-clavulanate (AUGMENTIN) 875-125 MG tablet Take 1 tablet by mouth 2 times daily Qty: 10 tablet, Refills: 0 Associated Diagnoses: Open knee wound, left, initial encounter CONTINUE these medications which have NOT CHANGED Details Acetaminophen (TYLENOL 8 HOUR PO) Take 1,000 mg by mouth 2 times daily (2 X 500 mg) albuterol (PROAIR HFA/PROVENTIL HFA/VENTOLIN HFA) 108 (90 Base) MCG/ACT inhaler Inhale 2 puffs into the lungs every 6 hours as needed for shortness of breath / dyspnea or wheezing Qty: 3 Inhaler, Refills: 3 Comments: Pharmacy may dispense brand covered by insurance (Proair, or proventil or ventolin or generic albuterol inhaler) B Complex Vitamins (VITAMIN B COMPLEX PO) Take 1 capsule by mouth every morning cyanocobalamin (VITAMIN B-12) 1000 MCG tablet Take 1,000 mcg by mouth every morning fish oil-omega-3 fatty acids 1000 MG capsule Take 2 g by mouth every morning Dwedrfljvjr-Jdgmtcxmx-Yqrzoibsug (TRELEGY ELLIPTA) 100-62.5-25 MCG/INH oral inhaler Inhale 1 puff into the lungs every morning hydrochlorothiazide (HYDRODIURIL) 25 MG tablet Take 25 mg by mouth every morning lactobacillus rhamnosus, GG, (CULTURELL KIDS) packet Take 1 packet by mouth 2 times daily lisinopril-hydrochlorothiazide (ZESTORETIC) 20-25 MG tablet Take 1 tablet by mouth daily Qty: 90 tablet, Refills: 1 Associated Diagnoses: Benign essential hypertension loperamide (IMODIUM) 2 MG capsule TAKE 3-4 CAPSULES (6-8 MG) BY MOUTH 3 TIMES DAILY NEEDED FOR DIARRHEA Qty: 480 capsule, Refills: 1 Associated Diagnoses: H/O ulcerative colitis sildenafil (VIAGRA) 50 MG tablet Take 0.5-1 tablets (25-50 mg) by mouth daily as needed Qty: 6 tablet, Refills: 3 Associated Diagnoses: Erectile dysfunction, unspecified erectile dysfunction type terazosin (HYTRIN) 2 MG capsule Take 2 mg by mouth At Bedtime triamcinolone (KENALOG) 0.1 % external cream APPLY TO AFFECTED AREA TWICE A DAY Qty: 30 g, Refills: 1 Associated Diagnoses: Lichen planus vitamin D3 (CHOLECALCIFEROL) 250 mcg (24027 units) capsule Take 1 capsule by mouth every morning Vitamin Mixture (EMILY-C PO) Take 2 capsules by mouth 2 times daily !! warfarin ANTICOAGULANT (COUMADIN) 5 MG tablet Take 1 tablet (5 mg) every Friday Qty: 30 tablet, Refills: 1 Comments: Patient also has 7.5 mg tablets he takes all other days of the week Associated Diagnoses: Acute deep vein thrombosis (DVT) of proximal vein of both lower extremities (H); manager intermediate current use of anticoagulants with INR goal of 2.0-3.0 !! warfarin ANTICOAGULANT (COUMADIN) 7.5 MG tablet TAKE 5MG TABLET ON EVERY FRI AND 7.5MG TABLET ON ALL OTHER DAYS OF THE WEEK. Qty: 78 tablet, Refills: 1 Associated Diagnoses: Acute deep vein thrombosis (DVT) of proximal vein of both lower extremities (H) zolpidem ER (AMBIEN CR) 12.5 MG CR tablet TAKE 1 TABLET BY MOUTH EVERY DAY AT BEDTIME NEEDED FOR SLEEP Qty: 30 tablet, Refills: 0 Comments: Not to exceed 5 additional fills before 01/09/2021 Associated Diagnoses: Insomnia, unspecified type sulfaSALAzine (AZULFIDINE) 500 MG tablet Take 1,000 mg by mouth 2 times daily (2 X 500 mg) !! - Potential duplicate medications found. Please discuss with provider. STOP taking these medications enoxaparin ANTICOAGULANT (LOVENOX) 40 MG/0.4ML syringe Comments: Reason for Stopping: Discharge Instructions: Follow-up Appointments Follow-up and recommended labs and tests Follow up with Dr. Nuñez , at (location with clinic name or city) [facility], on 01/23/21 for wound vac change. No follow up labs or test are needed. Follow up with [facility] Coumadin clinic next week After Care Instructions Activity Your activity upon discharge: activity as tolerated Diet Follow this diet upon discharge: Orders Placed This Encounter Snacks/Supplements Adult: Other; send 2 pkts of unflavored Boni with breakfast tray; With Meals Regular Diet Adult Discharge Equipment: Wound Vac Negative Pressure Wound Therapy to left knee wound with continuous suction. Cleanse wound with saline or wound cleanser. Dressing change 2 times per week. Change canister weekly and when full. Supplies: black foam Teach pt/family how to remove dressing and apply wet to damp dressing, in the event that dressing leaks or machine malfunctions. Consult [facility] nurse. Follow-up for wound care in Dr. Nuñez clinic on 01/23/21. Robin Hodge MD 01/19/2021 at 7:25 AM General Surgery - PGY4 Associated attestation - Uriel Nuñez MD - 01/22/2021 7:32 AM CDT Physician Attestation I, Uriel Nuñez MD, have reviewed and discussed with the advanced practice provider their discharge plan for Virgil Christine. I did not participate in a shared visit by interviewing or examining the patient and this should be billed as an advanced practice provider only discharge. Uriel Nuñez Date of Service (when I saw the patient): I did not personally see this patient today. documented in this encounter Medications at Time [...] proximal vein of both lower extremities (H), manager intermediate current use of anticoagulants with INR [...] 1000 MCG tablet by mouth every morning Nvhmcjdscyw-Dwotedqpp-Lgcfq Inhale 1 puff 0 02/05/2021 terol (TRELEGY [...] 11/30/2021 (CHOLECALCIFEROL) 250 mcg by mouth every (81591 units) capsule morning warfarin ANTICOAGULANT TAKE 5MG [...] documented as of this encounter Progress Notes Yen Leonardo RN - 01/19/2021 7:27 AM CDT Focus: Rt knee VAC dressing change S: Dr Robin Hodge changed VAC dressing this am and placed traditional VAC. Pt is discharging by 8am. WOC will sign off. Robin Hodge MD - 01/19/2021 6:43 AM CDT [facility] VASCULAR SURGERY Progress Note Admission Date: 01/15/2021 01/19/2021 Assessment and Plan: Virgil Christine is a 65 year old male with PMHx of FV Leiden and chronic DVT on warfarin, HTN, ulcerative colitis s/p colectomy, morbid obesity, KENJI-CPAP, asthma. Roughly 7 weeks ago had a fall while walking his dog, leading to development of hematoma in left knee with drainage and ulceration. He underwent debridement of left knee with placement of a Veraflow wound vac on 01/15. Admitted for post op cares - regular diet - Warfarin for chronic DVT, dosing per pharmacist - Continue veraflo wound vac, standard vac application today - Pain control with tylenol and ibuprofen - Encourage ambulation and IS - Discharge today Interval History: No issues overnight. Pain well controlled, states he has been able to flex his knee more easily. No nausea or emesis, no fevers or chills. Physical Exam: Blood pressure 126/77, pulse 74, temperature 97.8 ??F (36.6 ??C), temperature source Oral, resp. rate 16, height 1.829 m (6'), weight 117 kg (258 lb), SpO2 97 %. I/O last 3 completed shifts: In: 1120 [P.O.:1120] Out: 475 [Urine:475] Constitutional: Awake, alert, oriented, and in no apparent distress. Lungs: No increased work of breathing on room air Cardiovascular: Regular rate and rhythm Abdomen: Soft, non-distended, nontender. Midline incision from prior colectomy Wound(s): Left knee wound with veraflo wound vac in place, no leakage or drainage, adequate seal Extremities: Warm and well perfused Data: Recent Labs Lab Test 12/25/20 1539 10/06/20 1624 05/26/20 1648 WBC 8.4 5.5 6.6 HGB 13.5 13.9 15.1 HCT 41.2 42.1 46.1 PLT 216 181 169 Recent Labs Lab Test 12/25/20 1539 10/06/20 1624 09/03/20 0909 NA 137 139 139 POTASSIUM 3.5 3.4 4.0 CHLORIDE 105 106 107 CO2 27 29 30 BUN 17 21 15 CR 0.89 0.97 0.89 Recent Labs Lab Test 01/18/21 0633 01/17/21 0543 01/16/21 0622 INR 1.21* 1.13 1.03 [facility] General Surgery Resident - PGY4 Associated attestation - Uriel Nuñez MD - 01/22/2021 7:32 AM CDT Physician Attestation I agree with the information in this note. Jessica Muñoz RN - 01/18/2021 8:18 AM CDT Phone call received from [facility] [place]. 3M [employer] wound vac for home beingbrought over to patient room via volunteer services. Aga has left cannisters and one dressing in the box and Aga has the rest of the dressings as she will be doing the dressings in the clinic. Robin Hodge MD - 01/18/2021 6:35 AM CDT [facility] VASCULAR SURGERY Progress Note Admission Date: 01/15/2021 01/18/2021 Assessment and Plan: Virgil Christine is a 65 year old male with PMHx of FV Leiden and chronic DVT on warfarin, HTN, ulcerative colitis s/p colectomy, morbid obesity, KENJI-CPAP, asthma. Roughly 7 weeks ago had a fall while walking his dog, leading to development of hematoma in left knee with drainage and ulceration. He underwent debridement of left knee with placement of a Veraflow wound vac on 01/15. Admitted for post op cares - regular diet - Warfarin for chronic DVT, dosing per pharmacist - Continue veraflo wound vac, standard vac application 12/20 - Pain control with tylenol, oxycodone - Encourage ambulation and IS - Anticipate discharge tomorrow Interval History: No issues overnight. Pain well controlled, states he has been able to flex his knee more easily. No nausea or emesis, no fevers or chills. Physical Exam: Blood pressure 100/63, pulse 75, temperature 97.6 ??F (36.4 ??C), temperature source Oral, resp. rate 16, height 1.829 m (6'), weight 117 kg (258 lb), SpO2 94 %. I/O last 3 completed shifts: In: 900 [P.O.:900] Out: 850 [Urine:850] Constitutional: Awake, alert, oriented, and in no apparent distress. Lungs: No increased work of breathing on room air Cardiovascular: Regular rate and rhythm Abdomen: Soft, non-distended, nontender. Midline incision from prior colectomy Wound(s): Left knee wound with veraflo wound vac in place, no leakage or drainage, adequate seal Extremities: Warm and well perfused Data: Recent Labs Lab Test 12/25/20 1539 10/06/20 1624 05/26/20 1648 WBC 8.4 5.5 6.6 HGB 13.5 13.9 15.1 HCT 41.2 42.1 46.1 PLT 216 181 169 Recent Labs Lab Test 12/25/20 1539 10/06/20 1624 09/03/20 0909 NA 137 139 139 POTASSIUM 3.5 3.4 4.0 CHLORIDE 105 106 107 CO2 27 29 30 BUN 17 21 15 CR 0.89 0.97 0.89 Recent Labs Lab Test 01/17/21 0543 01/16/21 0622 01/15/21 0751 INR 1.13 1.03 1.07 Robin Hodge General Surgery Resident - PGY4 Associated attestation - Uriel Nuñez MD - 01/18/2021 8:17 AM CDT Physician Attestation I agree with the information in this note. Uriel Rodriguez MD - 01/17/2021 1:02 PM CDT Flow change today, additional 48 hours of hypochlorous acid VAC vera flow, erythema decreased, plan change to VAC on Friday and discharged home wound VAC with follow-up in wound clinic for VAC dressingchanges twice weekly. On IV antibiotics, will dismiss on oral antibiotics based on sensitivities, increase warfarin dosing to 7.5 mg alternating with 5 mg every other day per his standard regime, not on Lovenox due to risk of bleeding and recently debrided wound. Savannah Robin Hodge MD - 01/17/2021 12:40 PM CDT [facility] VASCULAR SURGERY Progress Note Admission Date: 01/15/2021 01/17/2021 Assessment and Plan: Virgil Christine is a 65 year old male with PMHx of FV Leiden and chronic DVT on warfarin, HTN, ulcerative colitis s/p colectomy, morbid obesity, KENJI-CPAP, asthma. Roughly 7 weeks ago had a fall while walking his dog, leading to development of hematoma in left knee with drainage and ulceration. He underwent debridement of left knee with placement of a Veraflow wound vac on 01/15. Admitted for post op cares - regular diet - Warfarin for chronic DVT, dosing per pharmacist - Continue veraflo wound vac, standard vac application 12/20 - Pain control with tylenol, oxycodone - Encourage ambulation and IS Interval History: States he feels very well this afternoon. Pain medication has been helpful, wound vac change earlierwent smoothly. Denies any nausea, emesis, fevers, chills, dyspnea. States he can move his knee without much difficulty Physical Exam: Blood pressure 113/77, pulse 66, temperature 98 ??F (36.7 ??C), temperature source Oral, resp. rate 18, height 1.829 m (6'), weight 117 kg (258 lb), SpO2 96 %. I/O last 3 completed shifts: In: 650 [P.O.:650] Out: 575 [Urine:475; Drains:100] Constitutional: Awake, alert, oriented, and in no apparent distress. Lungs: No increased work of breathing on room air Cardiovascular: Regular rate and rhythm Abdomen: Soft, non-distended, nontender. Midline incision from prior colectomy Wound(s): Left knee wound with veraflo wound vac in place, no leakage or drainage, adequate seal Extremities: Warm and well perfused Data: Recent Labs Lab Test 12/25/20 1539 10/06/20 1624 05/26/20 1648 WBC 8.4 5.5 6.6 HGB 13.5 13.9 15.1 HCT 41.2 42.1 46.1 PLT 216 181 169 Recent Labs Lab Test 12/25/20 1539 10/06/20 1624 09/03/20 0909 NA 137 139 139 POTASSIUM 3.5 3.4 4.0 CHLORIDE 105 106 107 CO2 27 29 30 BUN 17 21 15 CR 0.89 0.97 0.89 Recent Labs Lab Test 01/17/21 0543 01/16/21 0622 01/15/21 0751 INR 1.13 1.03 1.07 Robin [facility] General Surgery Resident - PGY4 Associated attestation - Uriel Nuñez MD - 01/17/2021 1:03 PM CDT Physician Attestation I agree with the information in this note. Jessica Muñoz RN - 01/16/2021 1:55 PM CDT Call received from Aga at the [facility] [place]. Aga has ordered the 3M KCI wound vac for home. Planning for machine to be delivered to bedside before planned discharge date of 01/19. Patient will have wound vac changes done at the wound clinic. Uriel Nuñez MD - 01/16/2021 12:33 PM CDT Initial culture results reviewed, antibiotics initiated, VAC vera flow intact, will be changed to bedside tomorrow, paperwork completed for standard VAC application on Friday, January 19 and discharged from hospital. He is ambulating. Adequate pain control. Discussed and reviewed. Chronic warfarin utilization, daily INR, warfarin service consulted. Plan 5 mg tonight. Savannah Keely Meehan RN - 01/16/2021 4:20 AM CDT Alert and oriented x4. Vital signs stable on RA. SBA in room. Tolerating regular diet. Lung sounds clear. 1 BM this shift. Adequate urine output. Sunburn to BLE and face. Wound vac to L knee with continuous pressure and vashe flushes. Pt refused yellow antiembolism stocking to L upper thigh. Pain tolerated with dilaudid, tylenol, ultram and ice. Denies nausea. Personal medications sealed and given topharmacy. Nicolas Black PA-C - 01/15/2021 12:08 PM CDT hospitalist consult received; pt is a 65yo male with PMHx FV Leiden & chronic DVT on chronic AC with warfarin, hypertension, morbid obesity, KENJI-CPAP, and mild persistent asthma who underwent an uncomplicated previously scheduled I&D of an open left knee wound by Dr. Nuñez. Hospitalist was consulted postoperatively for medical management and warfarin tx. Chart & preop eval reviewed, at this time patient does not have chronic medical conditions that require daily monitoring. Pharmacy consult placed for management of warfarin therapy. CPAP order placed per home parameters. HELIARC WELDER medicationsreviewed, discontinued duplicate hydrochlorothiazide order. At this time will defer all postoperative cares to primary team. Hospitalist will sign-off, call with concerns. Nicolas Black PA-C 01/15/2021, 12:11 PM Pager: [phone] Anita Randhawa RN - 01/15/2021 9:08 AM CDT Pt rates back pain #9 and (L) knee pain #3. Given 1000mg of Tyl preop. Face red (sunburn) Houston Benavides - 01/12/2021 12:24 PM CDT HELIARC WELDER medications updated by Medication Scribe prior to surgery via phone call with patient??(last doses completed by Nurse) Medication history sources: Patient, Surescripts and H&P In the past week, patient estimated taking medication this percent of the time: Greater than 90% Adherence assessment: N/A Not Observed Significant changes made to the medication list: None Additional medication history information: Patient brought own home meds: Albuterol Inhaler, Trelegy Ellipta Inhaler Medication reconciliation completed by provider prior to medication history? No Time spent in this activity: 25 minutes The information provided in this note is only as accurate as the sources available at the time of update(s) Prior to Admission medications Medication Sig Last Dose Taking? Auth Provider Acetaminophen (TYLENOL 8 HOUR PO) Take 1,000 mg by mouth 2 times daily (2 X 500 mg) at PM Yes Reported, Patient albuterol (PROAIR HFA/PROVENTIL HFA/VENTOLIN HFA) 108 (90 Base) MCG/ACT inhaler Inhale 2 puffs into the lungs every 6 hours as needed for shortness of breath / dyspnea or wheezing at PRN Yes Froylan Louise MD amoxicillin-clavulanate (AUGMENTIN) 875-125 MG tablet Take 1 tablet by mouth 2 times daily for 5 days at PM Yes Uriel Nuñez MD B Complex Vitamins (VITAMIN B COMPLEX PO) Take 1 capsule by mouth every morning 01/12/2021 at AM Yes Reported, Patient cyanocobalamin (VITAMIN B-12) 1000 MCG tablet Take 1,000 mcg by mouth every morning 01/12/2021 at AM Yes Reported, Patient fish oil-omega-3 fatty acids 1000 MG capsule Take 2 g by mouth every morning at AM Yes Reported, Patient Tnmccohkasc-Vjzpwrkaf-Ntiqsmkjwf (TRELEGY ELLIPTA) 100-62.5-25 MCG/INH oral inhaler Inhale 1 puff into the lungs every morning at AM Yes Reported, Patient hydrochlorothiazide (HYDRODIURIL) 25 MG tablet Take 25 mg by mouth every morning at AM Yes Reported,Patient lactobacillus rhamnosus, GG, (CULTURELL KIDS) packet Take 1 packet by mouth 2 times daily at PM Yes Reported, Patient loperamide (IMODIUM) 2 MG capsule TAKE 3-4 CAPSULES (6-8 MG) BY MOUTH 3 TIMES DAILY NEEDED FOR DIARRHEA at AM Yes Froylan Louise MD sildenafil (VIAGRA) 50 MG tablet Take 0.5-1 tablets (25-50 mg) by mouth daily as needed at PRN Yes Froylan Louise MD terazosin (HYTRIN) 2 MG capsule Take 2 mg by mouth At Bedtime at PM Yes Reported, Patient triamcinolone (KENALOG) 0.1 % external cream APPLY TO AFFECTED AREA TWICE A DAY at PRN Yes Froylan Louise MD vitamin D3 (CHOLECALCIFEROL) 250 mcg (75356 units) capsule Take 1 capsule by mouth every morning 01/12/2021 at AM Yes Reported, Patient Vitamin Mixture (EMILY-C PO) Take 2 capsules by mouth 2 times daily 01/12/2021 at AM Yes Reported, Patient warfarin ANTICOAGULANT (COUMADIN) 5 MG tablet Take 1 tablet (5 mg) every Friday01/10/2021 at AM Yes Froylan Louise MD warfarin ANTICOAGULANT (COUMADIN) 7.5 MG tablet TAKE 5MG TABLET ON EVERY FRI AND 7.5MG TABLET ON ALLOTHER DAYS OF THE WEEK. 01/09/2021 at AM Yes Froylan Louise MD zolpidem ER (AMBIEN CR) 12.5 MG CR tablet TAKE 1 TABLET BY MOUTH EVERY DAY AT BEDTIME NEEDED FOR SLEEP at PRN Yes Froylan Louise MD enoxaparin ANTICOAGULANT (LOVENOX) 40 MG/0.4ML syringe Inject 0.4 mLs (40 mg) Subcutaneous daily Hold day of procedure. Restart 24-48 hours after procedure, as advised by provider. Then continue daily injections until INR 2.3 or higher (or >2.0 twice, 24 hours apart). at AM Froylan Louise MD sulfaSALAzine (AZULFIDINE) 500 MG tablet Take 1,000 mg by mouth 2 times daily (2 X 500 mg) More thana month Froylan Louise MD Gerard Burgess, [facility] Medication Scribe [facility] documented in this encounter H&P Notes Elvis Valle MD - 01/15/2021 8:40 AM CDT I have reviewed the surgical (or preoperative) H&P that is linked to this encounter, and examined the patient. There are no significant changes Source Note - So Dodd MD - 01/12/2021 1:00 PM CDT [facility] [id number] [place] [phone] Primary Provider: Froylan Louise PREOPERATIVE EVALUATION: Today's date: 01/12/2021 Virgil Christine is a 65 year old male who presents for a preoperative evaluation. Today INR -1.6 Surgical Information: Surgery/Procedure: L Knee wound debridement for Left knee wound Surgery Location: [facility] Surgeon: Dr. Nuñez Surgery Date: 01/15/21 Time of Surgery: 7:00AM Where patient plans to recover: At home alone Type of Anesthesia Anticipated: to be determined Assessment & Plan The proposed surgical procedure is considered LOW risk. Pre-operative general physical examination - patient is undergoing low risk procedure Physical activity greater than 4 Mets Low perioperative cardiac risk . Patient is optimized for left knee debridement procedure for left knee wound infection . -Recent EKG on 10/06/2020 no acute EKG changes . - Recent blood test 12/25/20 no acute changes . Encounter for screening for other viral diseases - Asymptomatic COVID-19 Virus (Coronavirus) by PCR Nasopharyngeal Chronic deep vein thrombosis (DVT) of lower extremity, unspecified laterality, unspecified vein (H) - INR point of care - On Lovenox , has instructions for Lovenox use . - coumadin on hold . 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 Bilateral Deep vein thrombosis s/p bindu filter placement . longterm current use of anticoagulant therapy - INR point of care INR 1.6 today Morbid obesity (H) - continuing with dietary modification and exercise . Mild persistent asthma without complication - currently controlled . - recommend to continue albuterol , trelegy . Benign essential hypertension - blood pressure above goal - Will add lisinopril to hydrochlorothiazide . - lisinopril-hydrochlorothiazide (ZESTORETIC) 20-25 MG tablet; Take 1 tablet by mouth daily Possible Sleep Apnea: Moderate risk of sleep apnea . Risks and Recommendations: The patient has the following additional risks and recommendations for perioperative complications: - No identified additional risk factors other than previously addressed Coumadin on hold On Lovenox injection . RECOMMENDATION: APPROVAL GIVEN to proceed with proposed procedure, without further diagnostic evaluation. Subjective HPI related to upcoming procedure: Patient is undergoing low risk procedure Left knee wound debridement Physical activity greater than 4 mets . Preop Questions 01/12/2021 1. Have you ever had a heart attack or stroke? No 2. Have you ever had surgery on your heart or blood vessels, such as a stent placement, a coronary artery bypass, or surgery on an artery in your head, neck, heart, or legs? YES - 3. Do you have chest pain with activity? No 4. Do you have a history of heart failure? No 5. Do you currently have a cold, bronchitis or symptoms of other infection? YES - 6. Do you have a cough, shortness of breath, or wheezing? No 7. Do you or anyone in your family have previous history of blood clots? No 8. Do you or does anyone in your family have a serious bleeding problem such as prolonged bleeding following surgeries or cuts? No 9. Have you ever had problems with anemia or been told to take iron pills? No 10. Have you had any abnormal blood [...] 16. Do you have artificial joints? YES 17. Are you allergic to latex? No 956 Review of Systems Constitutional: Negative for fatigue and fever. HENT: Negative for hearing loss. Respiratory: Negative for cough. Gastrointestinal: Negative for abdominal pain. Endocrine: Negative for cold intolerance and heat intolerance. Genitourinary: Negative for dysuria. Musculoskeletal: Negative for back pain. Neurological: Negative for headaches. Psychiatric/Behavioral: Negative for confusion. Patient Active Problem List Diagnosis Date Noted ??? Health Snf 07/16/2011 Priority: High EMERGENCY CARE PLAN Presenting Problem Signs and Symptoms Treatment Plan Questions or conerns during clinic hours I will call the clinic directly Questions or conerns outside clinic hours I will call the 24 hour nurse line at [phone] Patient needs to schedule an appointment I will call the 24 hour scheduling team at [phone] orclinic directly Same day treatment I will call the clinic first, nurse line if after hours, urgent care and expresscare if needed DX [id number] REPLACED WITH [id number] [facility] (09/28/2012) ??? Morbid obesity (H) 01/12/2021 Priority: Medium ??? Open knee wound, left, initial encounter 01/02/2021 Priority: Medium ??? 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 Virgil Christine has no plan orcode status on file. [...] thrombectomy ??? Factor V deficiency (H) ??? Hypertension ??? Personal history of DVT [...] MD; Location: [facility] OR ??? COLECTOMY ??? COLOSTOMY pochoscopy ??? COLOSTOMY 06/20/2017 pouchoscopy ??? EXAM UNDER ANESTHESIA RECTUM N/A 06/12/2018 Procedure: Exam under anesthesia, pouchoscopy, Incision and drainage of abscess. POUCHOSCOPY ; Surgeon: Chase Suazo MD; Location: [facility] OR ??? bindu filter ??? ORTHOPEDIC SURGERY ??? POUCHOSCOPY N/A 06/22/2014 [...] Outpatient Medications Medication Sig Dispense Refill ??? Acetaminophen (TYLENOL 8 HOUR PO) Take 1,000 mg by mouth 2 times daily (2 X 500 mg) ??? albuterol (PROAIR HFA/PROVENTIL HFA/VENTOLIN HFA) 108 (90 Base) MCG/ACT inhaler Inhale 2 puffs into the lungs every 6 hours as needed for shortness of breath / dyspnea or wheezing 3 Inhaler 3 ??? enoxaparin ANTICOAGULANT (LOVENOX) 40 MG/0.4ML syringe Inject 0.4 mLs (40 mg) Subcutaneous dailyHold day of procedure. Restart 24-48 hours after procedure, as advised by provider. Then continue daily injections until INR 2.3 or higher (or >2.0 twice, 24 hours apart). 4.4 mL 1 ??? fish oil-omega-3 fatty acids 1000 MG capsule Take 2 g by mouth every morning ??? lactobacillus rhamnosus, GG, (CULTURELL KIDS) packet Take 1 packet by mouth 2 times daily ??? lisinopril-hydrochlorothiazide (ZESTORETIC) 20-25 MG tablet Take 1 tablet by mouth daily 90 tablet 1 ??? loperamide (IMODIUM) 2 MG capsule TAKE 3-4 CAPSULES (6-8 MG) BY MOUTH 3 TIMES DAILY NEEDED FOR DIARRHEA 480 capsule 1 ??? sildenafil (VIAGRA) 50 MG tablet Take 0.5-1 tablets (25-50 mg) by mouth daily as needed 6 tablet3 ??? sulfaSALAzine (AZULFIDINE) 500 MG tablet Take 1,000 mg by mouth 2 times daily (2 X 500 mg) ??? triamcinolone (KENALOG) 0.1 % external cream APPLY TO AFFECTED AREA TWICE A DAY 30 g 1 ??? warfarin ANTICOAGULANT (COUMADIN) 5 MG tablet Take 1 tablet (5 mg) every Friday 30 tablet 1 ??? warfarin ANTICOAGULANT (COUMADIN) 7.5 MG tablet TAKE 5MG TABLET ON EVERY FRI AND 7.5MG TABLET ONALL OTHER DAYS OF THE WEEK. 78 tablet 1 ??? zolpidem ER (AMBIEN CR) 12.5 MG CR tablet TAKE 1 TABLET BY MOUTH EVERY DAY AT BEDTIME NEEDED FOR SLEEP 30 tablet 0 ??? amoxicillin-clavulanate (AUGMENTIN) 875-125 MG tablet Take 1 tablet by mouth 2 times daily for 5days 10 tablet 0 ??? B Complex Vitamins (VITAMIN B COMPLEX PO) Take 1 capsule by mouth every morning ??? cyanocobalamin (VITAMIN B-12) 1000 MCG tablet Take 1,000 mcg by mouth every morning ??? Nwmkkxjkald-Nxcpybxrp-Trvyfzgkmn (TRELEGY ELLIPTA) 100-62.5-25 MCG/INH oral inhaler Inhale 1 puff into the lungs every morning ??? hydrochlorothiazide (HYDRODIURIL) 25 MG tablet Take 25 mg by mouth every morning ??? terazosin (HYTRIN) 2 MG capsule Take 2 mg by mouth At Bedtime ??? vitamin D3 (CHOLECALCIFEROL) 250 mcg (46685 units) capsule Take 1 capsule by mouth every morning ??? Vitamin Mixture (EMILY-C PO) Take 2 capsules by mouth 2 times daily No Known Allergies Social History Tobacco Use ??? Smoking status: Former Smoker Packs/day: 2.00 Years: 25.00 Pack years: 50.00 Types: Cigarettes Quit date: 08/04/2006 Years since quittin.4 ??? Smokeless tobacco: Never Used ??? Tobacco comment: 2004 Substance Use Topics ??? Alcohol use: Yes Comment: 4 BEERS A WEEK History Drug Use No Objective BP (!) 152/80 Pulse 82 Temp 97.8 ??F (36.6 ??C) (Oral) Resp 18 Wt 118.8 kg (262 lb) SpO2 99% BMI 36.54 kg/m?? Physical Exam Vitals and nursing note reviewed. Constitutional: Appearance: Normal appearance. HENT: Head: Normocephalic. Nose: Nose normal. Mouth/Throat: Mouth: Mucous membranes are moist. Eyes: Pupils: Pupils are equal, round, and reactive to light. Cardiovascular: Rate and Rhythm: Normal rate. Pulses: Normal pulses. Pulmonary: Effort: Pulmonary effort is normal. Abdominal: General: Abdomen is flat. Skin: General: Skin is warm. Neurological: General: No focal deficit present. Mental Status: He is alert. Psychiatric: Mood and Affect: Mood normal. Left leg wound wound noticed. Recent Labs Lab Test 01/12/21 1241 01/04/21 1357 12/28/20 1353 12/25/20 1539 10/06/20 1624 HGB -- -- -- 13.5 13.9 PLT -- -- -- 216 181 INR 1.6* 3.8* < > 1.68* -- NA -- -- -- 137 139 POTASSIUM -- -- -- 3.5 3.4 CR -- -- -- 0.89 0.97 < > = values in this interval not displayed. Diagnostics: Recent Results (from the past 720 hour(s)) INR Collection Time: 12/25/20 1:44 PM Result Value Ref Range INR 2.10 (H) 0.86 - 1.14 Capillary Blood Collection Collection Time: 12/25/20 1:44 PM Result Value Ref Range Capillary Blood Collection Capillary collection performed CBC with platelets differential Collection Time: 12/25/20 3:39 PM Result Value Ref Range WBC 8.4 4.0 - 11.0 10e9/L RBC Count 4.36 (L) 4.4 - 5.9 10e12/L Hemoglobin 13.5 13.3 - 17.7 g/dL Hematocrit 41.2 40.0 - 53.0 % MCV 95 78 - 100 fl MCH 31.0 26.5 - 33.0 pg MCHC 32.8 31.5 - 36.5 g/dL RDW 14.2 10.0 - 15.0 % Platelet Count 216 150 - 450 10e9/L Diff Method Automated Method % Neutrophils 77.2 % % Lymphocytes 15.2 % % Monocytes 5.6 % % Eosinophils 1.3 % % Basophils 0.2 % % Immature Granulocytes 0.5 % Nucleated RBCs 0 0 /100 Absolute Neutrophil 6.5 1.6 - 8.3 10e9/L Absolute Lymphocytes 1.3 0.8 - 5.3 10e9/L Absolute Monocytes 0.5 0.0 - 1.3 10e9/L Absolute Eosinophils 0.1 0.0 - 0.7 10e9/L Absolute Basophils 0.0 0.0 - 0.2 10e9/L Abs Immature Granulocytes 0.0 0 - 0.4 10e9/L Absolute Nucleated RBC 0.0 Basic metabolic panel Collection Time: 12/25/20 3:39 PM Result Value Ref Range Sodium 137 133 - 144 mmol/L Potassium 3.5 3.4 - 5.3 mmol/L Chloride 105 94 - 109 mmol/L Carbon Dioxide 27 20 - 32 mmol/L Anion Gap 5 3 - 14 mmol/L Glucose 98 70 - 99 mg/dL Urea Nitrogen 17 7 - 30 mg/dL Creatinine 0.89 0.66 - 1.25 mg/dL GFR Estimate >90 >60 mL/min/[1.73_m2] GFR Estimate If Black >90 >60 mL/min/[1.73_m2] Calcium 9.0 8.5 - 10.1 mg/dL Lactic acid whole blood Collection Time: 12/25/20 3:39 PM Result Value Ref Range Lactic Acid 1.6 0.7 - 2.0 mmol/L CRP inflammation Collection Time: 12/25/20 3:39 PM Result Value Ref Range CRP Inflammation 24.9 (H) 0.0 - 8.0 mg/L Erythrocyte sedimentation rate auto Collection Time: 12/25/20 3:39 PM Result Value Ref Range Sed Rate 19 0 - 20 mm/h Blood Culture Collection Time: 12/25/20 3:39 PM Specimen: Blood Right Arm Result Value Ref Range Specimen Description Blood Right Arm Culture Micro No growth INR Collection Time: 12/25/20 3:39 PM Result Value Ref Range INR 1.68 (H) 0.86 - 1.14 Blood Culture Collection Time: 12/25/20 4:05 PM Specimen: Blood Right~Wrist Result Value Ref Range Specimen Description Blood Right Wrist Culture Micro No growth INR Collection Time: 12/28/20 1:53 PM Result Value Ref Range INR 3.80 (H) 0.86 - 1.14 Capillary Blood Collection Collection Time: 12/28/20 1:53 PM Result Value Ref Range Capillary Blood Collection Heelstick/Capillary Collection INR point of care Collection Time: 01/01/21 1:59 PM Result Value Ref Range INR 3.7 (H) 0.9 - 1.1 INR point of care Collection Time: 01/04/21 1:57 PM Result Value Ref Range INR 3.8 (H) 0.9 - 1.1 Anaerobic bacterial culture Collection Time: 01/09/21 12:07 PM Specimen: Knee, Left; Wound Result Value Ref Range Culture 2+ Finegoldia magna (A) Wound Aerobic Bacterial Culture Routine with Gram Stain Collection Time: 01/09/21 12:07 PM Specimen: Knee, Left; Wound Result Value Ref Range Culture 2+ Normal saadia Gram Stain Result 2+ Gram positive cocci (A) Gram Stain Result 1+ Gram positive bacilli resembling diphtheroids (A) Gram Stain Result 1+ WBC seen (A) INR point of care Collection Time: 01/12/21 12:41 PM Result Value Ref Range INR 1.6 (H) 0.9 - 1.1 No EKG this visit, completed in the last 90 days. Revised Cardiac Risk Index (RCRI): The patient has the following serious cardiovascular risks for perioperative complications: - No serious cardiac risks = 0 points RCRI Interpretation: 0 points: Class I (very low risk - 0.4% complication rate) Signed Electronically by: So Dodd MD Copy of this evaluation report is provided to requesting physician. documented in this encounter Consult Notes Ludy Medel RN - 01/17/2021 12:00 PM CDT Images from the original note were not included. [facility] Nurse Inpatient Wound Assessment Reason for consultation: VeraFlo vac dressing changes to left knee Assessment Left knee: trauma wound s/p I&D and VeraFlo vac placement 01-15-21. Previous dressing had been leaking and was patched by Nursing this morning. First full dressing change done today 01-17, wound looks clean, no purulence. Pt tolerated procedure well with oral and IV pain meds. Treatment Plan Left knee: MWF VeraFlo vac therapy, using Cleanse Choice foam, with Vashe instillation 20cc every 2 hrs with 10 min dwell time. Will plan to switch to a regular vac on 01/19 for discharge home, then pt will go to wound clinicfor dressing changes. Orders Reviewed WO Nurse follow-up plan: Friday/ Nursing to notify the Provider(s) and re-consult the WO Nurse if wound(s) deteriorates or new skin concern. Patient History According to provider note(s): Virgil Christine is a 65 year old male with PMHx of FV Leiden and chronicDVT on warfarin, HTN, ulcerative colitis s/p colectomy, morbid obesity, KENJI-CPAP, asthma. Roughly 7 weeks ago had a fall while walking his dog, leading to development of hematoma in left knee with drainage and ulceration. He underwent debridement of left knee with placement of a Veraflow wound vac on 01/15. Objective Data Containment of urine/stool: Continent of bladder and Continent of bowel Active Diet Order: Orders Placed This Encounter Regular Diet Adult Output: I/O last 3 completed shifts: In: 650 [P.O.:650] Out: 575 [Urine:475; Drains:100] Risk Assessment: Sensory Perception: 4-->no impairment Moisture: 4-->rarely moist Activity: 4-->walks frequently Mobility: 4-->no limitation Nutrition: 4-->excellent Friction and Shear: 3-->no apparent problem Matt Score: 23 Labs: Recent Labs Lab 01/17/21 0543 INR 1.13 Physical Exam Skin inspection: focused left knee Wound Location: Left anterior/medial knee Date of last photo: 01-17-21 Wound History: see above; pt remains able to bend/flex knee and walk on his own Measurements (length x width x depth, in cm): Medial opening approx 6.5 x 2.3 x 1cm, anterior opening approx 1.8 x 1.8 x 0.8cm; wounds communicate and the entire wound with pocket/undermining is [id number] x 6cm tapering toward anterior wound Wound Base: meaty moist red tissue marbled with yellowish subcu tissue Tunneling/Undermining: area btw the two openings undermines as noted above, no other obvious tunneling or undermining Palpation of the wound bed: normal Periwound skin: intact, edematous, erythema- blanchable and macerated Color: pink Temperature: normal Drainage: small Description of drainage: serosanguinous Odor: none Pain: moderate Interventions Current support surface: Standard Atmos Air mattress Current off-loading measures: Pillows Visual inspection of wound(s) completed Wound Care: done per plan of care: 3pc foam removed, 5pc applied (1 waffle foam, 4 solid donald thin) Supplies: reviewed Education provided: plan of care, wound progress, Infection prevention and Off- loading pressure Discussed plan of care with Patient, Nurse and Physician Dr. Nuñez who was rounding in room Ludy Medel RN, CWOCN documented in this encounter Miscellaneous Notes Plan of Care - Chula Quintero RN - 01/19/2021 9:36 AM CDT A&Ox4, VSS on RA. Independent. Regular diet, tolerating. BS+, voiding well. Wound vac changed Rickie to home wound vac. CMS intact. Pulses palpable. Rates pain 3/10, declines pain medication, did ask for something to take home, gabapentin rx given by provider but not filled here since pt not wanting to wait to get the rx. Pt's own medications sent home with pt. Denies nausea. Discharge informationprovided to pt, pt verbalized understanding. Pt's friend picked up pt and pt discharged home. Plan of Care - Howard Hubbard RN - 01/19/2021 2:50 AM CDT Alert and oriented x4. Vital signs stable on RA. Patient independent in room. Tolerating regular diet. Lungs sounds clear. BS+. BM-. Voiding. Left knee wound to wound vac with vashe instillation. CMS intact. Pulses palpable. Pain managed with PRN Tylenol and Ultram. Denies nausea. Plan of Care - Hola Friedman RN - 01/18/2021 5:52 PM CDT Pt. Alert and oriented x4. Vital signs stable on RA. Up ind. Tolerating reg diet. Lung sounds dim. Bowel sounds active, + flatus. BM today, adequate urine output. Woundvac to 125mmHg suction CDI. Pain managed with Tylenol. Denies nausea. Pt up ambulating frequently, anxious to discharge. Plan of Care - Arminda Laureano RN - 01/18/2021 6:25 AM CDT Alert and oriented x4. Vital signs stable on room air. Independent. Tolerating regular diet. Lung sounds clear. Bowel sounds active, passing flatus, no BM during shift, adequate urine output. LLE dressing CDI- wound vac in place to - 125 continuous suction. Pain managed with PRN tramadol. Denies nausea. CMS intact. Plan of Care - Karen Ellis RN - 01/17/2021 10:21 PM CDT VSS. A/O. Ind. Wound vac dressing changed. Ultram given. Tolerating diet. LE slight edema. Plan of Care - JARED PEÑA - 01/17/2021 6:41 AM CDT A&O x4. VSS on RA. Lung sounds clear. Tolerating reg diet. Bowel sounds active, denies flatus. Voiding adequately. LLE dressing CDI, wound vac in place. Pain controlled with ultram and scheduled tylenol. Up independently. CMS intact. Plan of Care - Karen Ellis RN - 01/16/2021 6:34 PM CDT VSS. A/O. Ind. L knee wound vac intact. LE swollen. Ultram & dilaudid given. Tolerating diet. Plan of Care - Karen Ellis RN - 01/15/2021 6:25 PM CDT VSS. A/O. SBA. L knee wound vac. Dilaudid/ultram/tylenol given for back & knee pain. Tolerating diet. Voiding fine. +2 LE edema. Op Note - Uriel Nuñez MD - 01/15/2021 12:27 PM CDT Procedure Date: January 15, 2021 SURGEON: Uriel Nuñez MD FLOAT TENDER: None. PREOPERATIVE DIAGNOSIS: 1. Chronic left knee wound, trauma approximately 6 weeks prior, chronic anticoagulation POSTOPERATIVE DIAGNOSIS: 1. Same PROCEDURES PERFORMED: excisional debridement left knee wound with creation of medial thigh counterincision for debridement with significant undermining, sonic 1 debridement, Prontosan, application of VAC vera flow with acid, wound measurements 11 cm x 11 cm with 15 mm of depth ANESTHESIA: MAC ESTIMATED BLOOD LOSS: 30 cc FINDINGS: Significant undermining and biofilm SPECIMENS: None COMPLICATIONS: None DRAINS: VAC vera flow, hypochlorous acid, 3 sponges DESCRIPTION OF PROCEDURE: Informed consent was obtained. Patient was appropriately marked. Patient was then taken to the operating room and placed in the supine position. All pressure points were well-padded. The patient's left foot, calf, knee, thigh were then prepped and draped in a sterile fashion.A timeout was performed. 1% lidocaine was injected,. Undermining was determined along the medial thigh, approximately 11 cm conversation performed with a 11 blade, wound was copiously irrigated then debrided with examination of a 10 blade. Purulent necrotic dermis, subcutaneous tissue, necrotic fat, biofilm debridement was performed with 2 L of Prontosan. Hemostasis achieved medication of pinpoint electrocautery, the wound was then soaked with hypochlorous acid for 15 minutes. Bacterial flow was then placed, 3 sponges total, occlusive seal obtained, cleansing mode of irrigation every 2 hours, 20 cc of installation hypochlorous acid, 10 minutes dwell time. Yellow strip edema wear placed given chronic lymphedema The patient tolerated the procedure and anesthesia well and was brought back to the recovery room, vital signs stable and vascular status intact to recovery room Uriel Nuñez MD Pager [phone] Pharmacy-Anticoagulation Service - Shanique Waters [facility] - 01/15/2021 12:11 PM CDT Clinical Pharmacy - Warfarin Dosing Consult Pharmacy has been consulted to manage this patient???s warfarin therapy. Indication: DVT/ PE Treatment Therapy Goal: INR 2-3 Warfarin Prior to Admission: Yes Warfarin HELIARC WELDER Regimen: 5 mg on Wednesdays and 7.5 mg the rest of the week. INR Date Value Ref Range Status 01/15/2021 1.07 0.85 - 1.15 Final Comment: Effective 12/31/2020, the reference range for this assay has changed. 01/12/2021 1.6 (H) 0.9 - 1.1 Final Chromogenic Factor 10 Date Value Ref Range Status 08/27/2018 34 (L) 70 - 130 % Final Comment: Therapeutic Range: A Chromogenic Factor 10 level of approximately 20-40% inversely correlates with an INR of 2-3 for patients receiving Warfarin. Chromogenic Factor 10 levels below 20% indicate an INR greater than 3 and levels above 40% indicate an INR less than 2. Recommend warfarin 7.5 mg today. Pharmacy will monitor Virgil Christine daily and order warfarin doses to achieve specified goal. Please contact pharmacy as soon as possible if the warfarin needs to be held for a procedure or if the warfarin goals change. Shanique Waters, PharmD, BCPS Brief Op Note - Uriel Nuñez MD - 01/15/2021 10:28 AM CDT [facility] Brief Operative Note Pre-operative diagnosis: Open knee wound, left, initial encounter [S81.002A] Post-operative diagnosis Same as pre-operative diagnosis Procedure: Procedure(s): LEFT KNEE WOUND DEBRIDEMENT WITH SONIC 1 AND VERAFLO VAC PLACEMENT,11 cm x 11 cm x 15mm depth Vashe irrigation Surgeon: Surgeon(s) and Role: * Uriel Nuñez MD - Primary Anesthesia: Monitor Anesthesia Care Estimated blood loss: Less than 50 ml Drains: Vac veraflo, 3 sponges Specimens: * No specimens in log * Findings: None. Complications: None. Implants: * No implants in log * documented in this encounter Plan of Treatment Upcoming Encounters Date Type Specialty Care Team Description 05/20/2022 Lab Lab documented as of this encounter Procedures Procedure Name Priority Date/Time Associated Comments Diagnosis INR Routine 01/19/2021 7:27 AM Results f or this CDT procedure are i n the results section. INR Routine 01/18/2021 6:33 AM Results f or this CDT procedure are i n the results section. GLUCOSE BY METER Routine 01/17/2021 6:06 AM Resul ts for this CDT procedure are i n the results section. INR Routine 01/17/2021 5:43 AM Results f or this CDT procedure are i n the results section. GLUCOSE BY METER Routine 01/16/2021 6:22 AM Resul ts for this CDT procedure are i n the results section. INR Routine 01/16/2021 6:22 AM Results f or this CDT procedure are i n the results section. INR STAT 01/15/2021 7:51 AM Results f or this CDT procedure are i n the results section. IRRIGATION AND Routine 01/15/2021 5:59 AM Open knee wound, DEBRIDEMENT LOWER CDT left, initial EXTREMITY, COMBINED encounter documented in this encounter Results (ABNORMAL) INR (01/19/2021 7:27 AM CDT) athologist Signature INR 1.25 (H) 0.85 - 1.15 01/19/2021 LABORATORY 8:03 AM CDT Comment: Effective 12/31/2020, the refere nce range for this assay has changed. Specimen Anatomical Collection Method / Collection Time Recei lindy Time (Source) Location / Volume Laterality Blood STRUCTURE OF RIGHT Venipuncture / 01/19/2021 7:27 07/3 7:41 HAND / Unknown Unknown AM CDT AM CDT Uriel Nuñez MD LAB - BLOOD ORDERABLES Performing Organization Address City/[facility]/ZIP Code Phon e Number [facility] [place] [address] Care Lab [address] 1[address] floor, [address] (ABNORMAL) INR (01/18/2021 6:33 AM CDT) athologist Signature INR 1.21 (H) 0.85 - 1.15 01/18/2021 LABORATORY 7:12 AM CDT Comment: Effective 12/31/2020, the refere nce range for this assay has changed. Specimen Anatomical Collection Method / Collection Time Recei lindy Time (Source) Location / Volume Laterality Blood STRUCTURE OF RIGHT Venipuncture / 01/18/2021 6:33 07/2 02/2021 6:56 UPPER LIMB / Unknown AM CDT AM CDT Unknown Uriel Nuñez MD LAB - BLOOD ORDERABLES Performing Organization Address City/State/ZIP Code Phon e Number [facility] [place] [address] Care Lab [address] 1st floor, Room [address]B Glucose by meter (01/17/2021 6:06 AM CDT) athologist Signature GLUCOSE BY 95 70 - 99 01/17/2021 LABORATORY METER POCT mg/dL 6:12 AM CDT POC Specimen Anatomical Collection Method Collection Time Receive d Time (Source) Location / / Volume Laterality Blood BLOOD SPECIMEN / 01/17/2021 6:06 AM 01/17 6:12 Unknown CDT AM CDT Uriel LILLY - BEAKER POCT Performing Organization Address City/State/ZIP Code Phon e Number LABORATORY [place] [place] [address] Care Lab [address] 1[address], Room 20B INR (01/17/2021 5:43 AM CDT) athologist Signature INR 1.13 0.85 - 1.15 01/17/2021 LABORATORY 6:12 AM CDT Comment: Effective 12/31/2020, the refere nce range for this assay has changed. Specimen Anatomical Collection Method / Collection Time Recei lindy Time (Source) Location / Volume Laterality Blood STRUCTURE OF RIGHT Venipuncture / 01/17/2021 5:43 07/2 01/2021 5:58 UPPER LIMB / Unknown AM CDT AM CDT Unknown Uriel Nuñez MD LAB - BLOOD ORDERABLES Performing Organization Address City/[facility]/ZIP Code Phon e Number LAB[place]ATORY [facility] [place] [address] [phone] Care Lab [address] 1[address], Room 20B (ABNORMAL) Glucose by meter (01/16/2021 6:22 AM CDT) athologist Signature GLUCOSE BY 101 (H) 70 - 99 01/16/2021 LABORATORY METER POCT mg/dL 6:29 AM CDT POC Specimen Anatomical Collection Method Collection Time Receive d Time (Source) Location / / Volume Laterality Blood BLOOD SPECIMEN / 01/16/2021 6:22 AM 01/16 6:29 Unknown CDT AM CDT Uriel LILLY - BEROMARIO POCT Performing Organization Address City/State/ZIP Code Phon e Number LABORATORY [facility] [place] [address] Care Lab [address] 1[address], Room 20B INR (01/16/2021 6:22 AM CDT) P athologist Signature INR 1.03 0.85 - 1.15 01/16/2021 LABORATORY 7:01 AM CDT Comment: Effective 12/31/2020, the refere nce range for this assay has changed. Specimen Anatomical Collection Method / Collection Time Recei lindy Time (Source) Location / Volume Laterality Blood STRUCTURE OF RIGHT Venipuncture / 01/16/2021 6:22 07/2 12/2020 6:38 UPPER LIMB / Unknown AM CDT AM CDT Unknown Uriel Nuñez MD LAB - BLOOD ORDERABLES Performing Organization Address City/State/ZIP Code Phon e Number LABORATORY [place] [address] Care Lab [address] 1[address], Room 20B INR (01/15/2021 7:51 AM CDT) P athologist Signature INR 1.07 0.85 - 1.15 01/15/2021 LABORATORY 8:30 AM CDT Comment: Effective 12/31/2020, the refere nce range for this assay has changed. Specimen Anatomical Collection Method / Collection Time Recei lindy Time (Source) Location / Volume Laterality Blood STRUCTURE OF RIGHT Venipuncture / 01/15/2021 7:51 07/2 11/2020 8:02 UPPER LIMB / Unknown AM CDT AM CDT Unknown Jeremiah Arreola DO LAB - BLOOD ORDERABLES Performing Organization Address City/State/ZIP Code Phon e Number LAB[place]ATORY [place] [place] [address] [phone] Care Lab [address] 1[address], Room [address]B documented in this encounter Visit Diagnoses Diagnosis Open knee wound, left, initial encounter - Primary Open knee wound, left, initial encounter documented in this encounter Admitting Diagnoses Diagnosis Open knee wound, left, initial encounter documented in this encounter Administered Medications Inactive Administered Medications - up to 3 most recent administrations Medication Order MAR Action Action Date Dose Rate Site acetaminophen (TYLENOL) tablet Given 01/15/2021 9:03 AM CDT 1,00 0 mg 1,000 mg 1,000 mg, Oral, ONCE, On Fri01/15/21 at 0930, For 1 dose, Maximum acetaminophen dose from all sources = 75 mg/kg/day not to exceed 4 gram, Pre-procedure acetaminophen (TYLENOL) tablet 650 mg Given 01/18/2021 9:18 PM CDT 650 mg 650 mg, Oral, EVERY 4 HOURS PRN, other, For optimal non-opioid multimodal pain management to improve pain control., Starting on Herlinda 01/18/21 at 0000, May give first dose 4 hours after last scheduled dose of acetaminophen (TYLENOL). Maximum acetaminophen dose from all sources = 75 mg/kg/day not to exceed 4 grams/day. acetaminophen (TYLENOL) tablet 975 mg Given 01/18/2021 8:37 AM CDT 975 mg 975 mg, Oral, EVERY 8 HOURS, First dose on Fri01/15/21 at 1700, For 3 days, Administer for multimodal surgical pain management. Maximum acetaminophen dose from all sources = 75 mg/kg/day not to exceed 4 grams/day. Given 01/17/2021 4:04 PM CDT 975 mg Given 01/17/2021 10:22 AM CDT 975 mg albuterol (PROAIR HFA/PROVENTIL HFA/VENTOLIN Given 2:42 PM CDT 2 puffs HFA) 108 (90 Base) MCG/ACT inhaler 2 puf f 2 puff, Inhalation, EVERY 6 HOURS PRN, shortness of breath / dyspnea, wheezing, Starting on Fri01/15/21 at 1112, Use patient's own medication. Check the dose counter on the inhaler to ensure there are doses remaining before administering. Given 01/17/2021 10:33 AM CDT 2 puffs clindamycin (CLEOCIN) infusion 900 New Bag 01/19/2021 4:39 AM CDT 900 mg 50 mL/hr mg Routine, 900 mg, Intravenous, EVERY 8 HOURS, First dose on Fri01/16/21 at 1130, Indications: Skin and Soft Tissue Infection New Bag 01/18/2021 8:12 PM CDT 900 mg 50 mL/hr New Bag 01/18/2021 12:17 PM CDT 900 mg 50 mL/hr cyanocobalamin (VITAMIN B-12) tablet 1,000 Given 01/19 9:09 AM CDT 1,000 mcg mcg 1,000 mcg, Oral, EVERY MORNING, First dose on Fri01/15/21 at 1130, Patient supplied medication Given 01/18/2021 8:37 AM CDT 1,000 mcg Given 01/17/2021 10:35 AM CDT 1,000 mcg Emily-C TABS 1 tablet Given 01/19/2021 9:09 AM CDT 1 tablet 1 tablet, Oral, 2 TIMES DAILY, First dose on Fri01/15/21 at 2100, Patient supplied medication Given 01/18/2021 8:15 PM CDT 1 tablet Given 01/18/2021 8:37 AM CDT 1 tablet Ajuplblspfw-Kyktvovmd-Hgfkpegmse (TRELEGY Given 01/19/2021 9:09 AM CDT 1 puff ELLIPTA) 100-62.5-25 MCG/INH oral inhaler 1 puff 1 puff, Inhalation, EVERY MORNING, First dose on Fri01/15/21 at 1130, *Do not use more frequently than once daily.* Rinse mouth after use. Use patient's own inhaler. Given 01/18/2021 8:39 AM CDT 1 puff Given 01/17/2021 10:34 AM CDT 1 puff gabapentin (NEURONTIN) tablet 600 mg Given 01/15/2021 8:27 AM CDT 600 mg 600 mg, Oral, ONCE, On Fri01/15/21 at 0800, For 1 dose, Pre-procedure HYDROmorphone (DILAUDID) injection 0.2 m g Given 01/16/2021 11:17 AM CDT 0.2 mg 0.2 mg, Intravenous, EVERY 2 HOURS PRN, other, moderate pain (pain rating 4-6) IF patient unable to take oral pain medication or pain not controlled with oral analgesics, Starting on Fri01/15/21 at 1112, Hold IV PRN opioid dose for analgesic side effects. Notify provider to assess for uncontrolled pain or analgesic side effects. Given 01/15/2021 6:11 PM CDT 0.2 mg HYDROmorphone (DILAUDID) injection 0.4 m g Given 01/19/2021 6:53 AM CDT 0.4 mg 0.4 mg, Intravenous, EVERY 2 HOURS PRN, other, severe pain (pain rating 7-10) IF patient unable to take oral pain medication or pain not controlled with oral analgesics, Starting on Fri01/15/21 at 1112, Hold IV PRN opioid dose for analgesic side effects. Notify provider to assess for uncontrolled pain or analgesic side effects. Given 01/16/2021 2:54 AM CDT 0.4 mg Given 01/15/2021 9:16 PM CDT 0.4 mg HYDROmorphone (DILAUDID) injection 0.4 m g Given 01/19/2021 7:09 AM CDT 0.4 mg 0.4 mg, Intravenous, ONCE, On Fri01/19/21 at 0730, For 1 dose Boni PACK 1 packet Given 01/19/2021 9:11 AM CDT 1 packet 1 packet, Oral, 2 TIMES DAILY, First dose on Fri01/15/21 at 1130 Given 01/18/2021 8:17 PM CDT 1 packet Given 01/18/2021 9:53 AM CDT 1 packet lactated ringers infusion Rate/Dose Change 01/15/2021 10:09 AM CDT 100 mL/hr at 25 mL/hr, Intravenous, CONTINUOUS, IF patient NOT on dialysis., Pre-procedure, Starting on Fri01/15/21 at 0800, Until Fri01/15/21 at 1013 Rate/Dose Change 01/15/2021 9:54 AM CDT 600 mL/hr New Bag 01/15/2021 8:59 AM CDT 25 mL/hr lactated ringers infusion New Bag 01/15/2021 11:23 AM CDT 100 mL/hr at 100 mL/hr, Intravenous, CONTINUOUS, Continue until IV catheter is weaned, PACU/Phase II, Starting on Fri01/15/21 at 1130, Until Fri01/19/21 at 1136 lactobacillus rhamnosus (GG) (CULTURELL) Given 01/19/2021 9: 09 AM CDT 1 capsule capsule 1 capsule 1 capsule, Oral, 2 TIMES DAILY, First dose on Fri01/15/21 at 1200, Administer at least 2 hours before or after oral antibiotics. Capsules may be opened. Given 01/18/2021 8:13 PM CDT 1 capsule Given 01/18/2021 8:38 AM CDT 1 capsule lisinopril-hydrochlorothiazide (ZESTORETIC) Given 12/23 9:08 AM CDT 1 tablet 20-25 MG per tablet 1 tablet 1 tablet, Oral, DAILY, First dose on Fri01/16/21 at 0900 Given 01/17/2021 10:22 AM CDT 1 tablet Given 01/16/2021 8:10 AM CDT 1 tablet naloxone (NARCAN) injection 0.2 mg 0.2 mg, Intravenous, EVERY 2 MIN PRN, op ioid reversal, Starting on Fri01/15/21 at 1139, Administer intravenous route when available and notify provider when administered. For unintended sedation or respiratory depression if all of the below criteria are met: ~ respiratory rate LES S than or EQUAL to 8. ~SaO2 less than 92% and or/end-tidal CO2 is greater than 50. ~ the patient is receiving an opioid, has unintended sedations assessed as RASS (-3), and is cur rently not on mechanical ventilation. RASS scale moderate (-3) is movement or eye opening to voice but no eye contact. Patient Monitoring Once the patient has demonstrated a response to the naloxone, continue to monitor respiratory rate, depth, oxygen saturation and end-tidal CO2 (if available) every 15 mi nutes x 2, then every 30 minutes x 2, then every 1 hour x 1 after each naloxone dose. Consider tr ansfer to ICU if patient respiratory parameters have not improved after 4 nalox one doses. For ordered IV doses 0.1-2mg give IVP. Give each 0.4mg over 15 seconds in emergency situations. For non-emergent situations further dilu te in 9mL of NS to facilitate titration of response. naloxone (NARCAN) injection 0.2 mg 0.2 mg, Intramuscular, EVERY 2 MIN PRN, opioid reversal, Starting on Fri01/15/21 at 1139, Administer intramuscular if an int ravenous route is not available and notify provider when administered. For unintend ed sedation or respiratory depression if all of the below criteria are met: ~ respiratory rate LESS than or EQUAL to 8. ~SaO2 less than 92% and or/end-tidal CO2 is greater th an 50. ~ the patient is receiving an opioid, has unintended sedations assessed as RASS (-3), and is currently not on mechanical ventilation. RASS scale moderate (-3) is movement or eye opening to voice but no eye contact. Patient Monitoring Once the patient has demonstrated a response to the naloxone, continue to m onitor respiratory rate, depth, oxygen saturation and end-tidal CO2 (if availab le) every 15 minutes x 2, then every 30 minutes x 2, then every 1 hour x 1 after each naloxone dose. Consider transfer to ICU if patient respiratory parameters have not improved after 4 naloxone doses. For ordered IV doses 0.1-2mg give IVP. Give each 0.4mg over 15 seconds in emergency situations. For non -emergent situations further dilute in 9mL of NS to facilitate titration of response. naloxone (NARCAN) injection 0.4 mg 0.4 mg, Intravenous, EVERY 2 MIN PRN, op ioid reversal, Starting on Fri01/15/21 at 1139, Administer intravenous route when available and notify provider when administered. For unintended sedation or respiratory depression if all of the below criteria are met: ~ respiratory rate LES S than or EQUAL to 8. ~ SaO2 less than 92% and or/end-tidal CO2 is greater than 50. ~ the patient is receiving an opioid, has unintended sedation assessed as RASS (-4 ) or (-5) and patient is currently not on mechanical ventilation. RASS scale (-4) is deep sedation with no response to voice but movement or eye opening to physical stimulation. R ASS scale (-5) is unarousable. Patient Monitoring Once the patient has demonstrated a response to the naloxone, continue to monitor respiratory rate, depth, oxygen saturation and end-tidal CO2 (if available) every 15 mi nutes x 2, then every 30 minutes x 2, then every 1 hour x 1 after each naloxone dose. Consider tr ansfer to ICU if patient respiratory parameters have not improved after 4 nalox one doses. For ordered IV doses 0.1-2mg give IVP. Give each 0.4mg over 15 seconds in emergency situations. For non-emergent situations further dilu te in 9mL of NS to facilitate titration of response. naloxone (NARCAN) injection 0.4 mg 0.4 mg, Intramuscular, EVERY 2 MIN PRN, opioid reversal, Starting on Fri01/15/21 at 1139, Administer intramuscular if an int ravenous route is not available and notify provider when administered. For unintend ed sedation or respiratory depression if all of the below criteria are met: ~ res piratory rate LESS than or EQUAL to 8. ~ SaO2 less than 92% and or/end-tidal CO2 is greater efraín n 50. ~ the patient is receiving an opioid, has unintended sedation assessed as RASS (-4) or (-5) and patient is currently not on mechanical ventilation. RA SS scale (-4) is deep sedation with no response to voice but movement or eye opening to physical stimulation. RASS scale (-5) is unarousa ble. Patient Monitoring Once the patient has demonstrated a response to the nalox one, continue to monitor respiratory rate, depth, oxygen saturation and end-tidal CO2 (if availab le) every 15 minutes x 2, then every 30 minutes x 2, then every 1 hour x 1 after each naloxone dose. Consider transfer to ICU if patient respiratory parameters have not improved after 4 naloxone doses. For ordered IV doses 0.1-2mg give IVP. Give each 0.4mg over 15 seconds in emergency situations. For non -emergent situations further dilute in 9mL of NS to facilitate titration of response. ondansetron (ZOFRAN) injection 4 mg 4 mg, Intravenous, EVERY 6 HOURS PRN, nausea, vomiting , Administer over 2-5 Minutes, Starting on Fri01/15/21 at 1112, This is Step 1 of nausea and vomiting management. If nausea not resolved in 15 minutes, go t o Step 2 prochlorperazine (COMPAZINE). Irritant. For ordered IV do ses 0.1-4 mg, give IV Push undiluted over 2-5 minutes. ondansetron (ZOFRAN-ODT) ODT tab 4 mg 4 mg, Oral, EVERY 6 HOURS PRN, nausea, v omiting, Starting on Fri01/15/21 at 1112, This is Step 1 of nausea and vomiting management. If n ausea not resolved in 15 minutes, go to Step 2 prochlorperazine (COMPAZINE). Do not push through foil backing. Peel back foil and gently remove. Place on to ngue immediately. Administration with liquid unnecessary W ith dry hands, peel back foil backing and gently remove tablet. Do not push oral d isintegrating tablet through foil backing. Administer immediately on tongue and oral disintegrati ng tablet dissolves in seconds, then swallow with saliva. Liquid not required . piperacillin-tazobactam (ZOSYN) 3.375 g New Bag 01/16/2021 8:10 AM CDT 3.375 g vial to attach to NS 100 mL bag Routine, 3.375 g, Intravenous, EVERY 6 HOURS, First dose on Fri01/15/21 at 1400, For 4 doses, Lactated Ringer's solution is not compatible with piperacillin-tazobactam for injection. , Indications: Perioperative Pharmacoprophylaxis New Bag 01/16/2021 2:45 AM CDT 3.375 g New Bag 01/15/2021 8:49 PM CDT 3.375 g prochlorperazine (COMPAZINE) injection 1 0 mg 10 mg, Intravenous, EVERY 6 HOURS PRN, nausea, vomitin g, Administer over 1-2 Minutes, Starting on Fri01/15/21 at 1112, This is Step 2 of nausea and vomiting management. If nausea not resolved in 15 -30 minutes, Notify provider. For ordered IV doses 0.1-10 mg, give IV push undiluted, each 5 mg over 1 minute. prochlorperazine (COMPAZINE) tablet 10 m g 10 mg, Oral, EVERY 6 HOURS PRN, nausea, vomiting, Starting on Fri01/15/21 at 1112, This is Step 2 of nausea and vomiting ma nagement. If nausea not resolved in 15-30 minutes, Notify provider. senna-docusate (SENOKOT-S/PERICOLACE) Given 01/15/2021 12:49 PM CDT 1 tablet 8.6-50 MG per tablet 1 tablet 1 tablet, Oral, 2 TIMES DAILY, First dose on Fri01/15/21 at 1130, To prevent constipation. Hold for loose stools Hold for loose stools. sodium chloride (PF) 0.9% PF flush 3 mL Given 01/19/2021 4:39 AM CDT 3 mLs 3 mL, Intracatheter, EVERY 8 HOURS, First dose on Fri01/15/21 at 1130, to lock peripheral IV dormant line Given 01/18/2021 8:17 PM CDT 3 mLs Given 01/18/2021 12:17 PM CDT 3 mLs terazosin (HYTRIN) capsule 2 mg Given 01/18/2021 9:17 PM CDT 2 mg 2 mg, Oral, AT BEDTIME, First dose on Fri01/15/21 at 2200 Given 01/17/2021 9:09 PM CDT 2 mg traMADol (ULTRAM) tablet 50 mg Given 01/19/2021 4:54 AM CDT 50 mg 50 mg, Oral, EVERY 6 HOURS PRN, moderate pain (4-6), severe pain (7-10), Starting on Fri01/15/21 at 1112, Hold oral PRN dose for analgesic side effects. Notify provider to assess for uncontrolled pain or analgesic side effects. Hold while on IV [employer] or with regular IV opioid dosing. Given 01/18/2021 4:06 AM CDT 50 mg Given 01/17/2021 9:08 PM CDT 50 mg vitamin B complex with vitamin C (STRESS Given 01/19/2021 9:10 A M CDT 1 tablet TAB) tablet 1 tablet 1 tablet, Oral, DAILY, First dose on Fri01/15/21 at 1130, Patient supplied medication Given 01/18/2021 8:39 AM CDT 1 tablet Given 01/17/2021 10:33 AM CDT 1 tablet vitamin D3 (CHOLECALCIFEROL) 250 mcg (26886 Given 12/23 9:10 AM CDT 250 mcg units) capsule 250 mcg 250 mcg, Oral, EVERY MORNING, First dose on Fri01/16/21 at 0900, Patient supplied medication Note: 250 mcg = 10,000 units Given 01/18/2021 8:38 AM CDT 250 mcg Given 01/17/2021 10:35 AM CDT 250 mcg warfarin ANTICOAGULANT (COUMADIN) tablet 10 mg Given 01/18/2021 6:37 PM CDT 10 mg 10 mg, Oral, ONCE AT 6PM, On Fri01/18/21 at 1800, For 1 dose, Pharmacist Dose per: Warfarin Dosing Service. warfarin ANTICOAGULANT (COUMADIN) tablet 7.5 Given 6:03 PM CDT 7.5 mg mg 7.5 mg, Oral, ONCE AT 6PM, On Fri01/15/21 at 1800, For 1 dose, INR = 1.07 warfarin ANTICOAGULANT (COUMADIN) tablet 7.5 Given 5:19 PM CDT 7.5 mg mg 7.5 mg, Oral, ONCE AT 6PM, On Fri01/16/21 at 1800, For 1 dose, INR = 1.03 warfarin ANTICOAGULANT (COUMADIN) tablet 7.5 Given 6:15 PM CDT 7.5 mg mg 7.5 mg, Oral, ONCE AT 6PM, On Fri01/17/21 at 1800, For 1 dose Warfarin Therapy Reminder (Check START DATE - warfarin may be starting in the FUTURE) CONTINUOUS PRN, Starting on Fri01/15/21 at 1136, Until Fri01/19/21 at 1136, *Note to reorder warfarin daily* Pharmacy Warf wily Dosing Service Patient is on Warfarin Therapy - check for daily order zolpidem (AMBIEN) tablet 5 mg Given 01/18/2021 8:13 PM CDT 5 mg 5 mg, Oral, AT BEDTIME PRN, sleep, Starting on Fri01/15/21 at 1145, Formulary sub for HELIARC WELDER Ambien CR 6.25 mg at bedtime prn Given 01/17/2021 9:12 PM CDT 5 mg Given 01/16/2021 8:31 PM CDT 5 mg documented in this encounter Active and Recently Administered Medications Times are shown in CDT. Scheduled Medication Order 01/17/2021 01/18/2021 01/19/2021 acetaminophen (TYLENOL) tablet 975 mg () 0038 ( Given - Provider: JARED PEÑA)1022 (Given - Provider: Karen Ellis RN)1604 (Given - Provider: Karen Ellis RN) 0122 (Not Given - Provider: Arminda aldana RN - Reason: Patient sleeping)0837 (Given - Provider: Hola Friedman RN) 975 mg, Oral, EVERY 8 HOURS, First dose on Fri01/15/21 at 1700, For 3 days, Administer for multimodal surgical pain management. Maximum acetaminophen dose from all sources = 75 mg/kg/day not to exceed 4 grams/day. clindamycin (CLEOCIN) infusion 900 mg 0411 (New Bag - Provider: JARED PEÑA)1155 (New Bag - Provider: Karen Ellis RN)1853 (New Bag - Provider: Karen Ellis RN) 0407 (New Bag - Provider: Arminda Laureano RN)1217 (New Bag - Provider: Hola Friedman, CINDY)2011 (New Bag - Provider: Howard Hubbard, CINDY) 043 (New Bag - Provider: Howard Hubbard RN)1130 (Canceled Entry - Provider: Orders Generic Provider - Comment: Automatically canceled at discontinue of medication order) Routine, 900 mg, Intravenous, EVERY 8 HO URS, First dose on Fri01/16/21 at 1130, Indications: Skin and Soft Tissue Infection cyanocobalamin (VITAMIN B-12) tablet 1,000 mcg 1035 (G iven - Provider: Karen Ellis RN) 0837 (Given - Provider: Hola Friedman, CINDY) 0909 (G iven - Provider: Chula Quintero, CINDY - Comment: pt's own med) 1,000 mcg, Oral, EVERY MORNING, First do se on Fri01/15/21 at 1130, Patient supplied medication Emily-C TABS 1 tablet 1033 (Given - Provider: Elba Ellis RN)2109 (Given - Provider: Karen Ellis RN) 0837 (Given - Provider: Hola carreon RN)2014 (Given - Provider: Howard Hubbard, CINDY) 0909 (Given - Provider: Chula Quintero, CINDY - Comment: pt's own med) 1 tablet, Oral, 2 TIMES DAILY, First dos e on Fri01/15/21 at 2100, Patient supplied medication Iofovaizumu-Xkwnnwojx-Ytgrsjbsqh (TRELEG Y ELLIPTA) 100-62.5-25 MCG/INH oral inhaler 1 puff 1034 (Given - Provider: Karen Ellis RN) 0839 (Gi gavi - Provider: Hola Friedman, CINDY) 0909 (Given - Provider: Chula Quintero RN - Comment: pt's own med) 1 puff, Inhalation, EVERY MORNING, First dose on Fri01/15/21 at 1130, *Do not use more frequently than once daily.* Rinse mouth after use. Use patient's own inhaler. HYDROmorphone (DILAUDID) injection 0.4 mg (COMPLETED) 0709 (Given - Provider: Howard Hubbard RN - Comment: wound vac dressing change) 0.4 mg, Intravenous, ONCE, On Fri01/19/21 at 0730, For 1 dose Boni PACK 1 packet 1023 (Given - Provider: Elba Ellis RN)8 (Not Given - Provider: Karen Ellis RN - Reason: Patient/family refused) 0953 (Given - Provider: Hola Friedman RN)2016 (Given - Provider: Howard Hubbard RN) 09 (Given - Provider: Chula Quintero RN) 1 packet, Oral, 2 TIMES DAILY, First dose on Fri01/15/21 at 1130 lactobacillus rhamnosus (GG) (CULTURELL) capsule 1 cap maggie 102 (Given - Provider: Karen Ellis RN)2108 (Given - Provider: Karen Ellis RN) 0838 (Given - Provider: Hola Friedman RN)2012 (Given - Provider: Howard Hubbard RN) 0909 (Given - Provider: Chula Quintero RN - Comment: pt's own med) 1 capsule, Oral, 2 TIMES DAILY, First do se on Fri01/15/21 at 1200, Administer at least 2 hours before or after oral antibiotics. Capsules may be opened. lisinopril-hydrochlorothiazide (ZESTORETIC) 20-25 MG p er tablet 1 tablet 1022 (Given - Provider: Karen Ellis RN) 0841 (Not Given - Provider: Hola Friedman RN - Reason: Order parameters not met) 0908 (Given - Provider: Chula Quintero RN) 1 tablet, Oral, DAILY, First dose on Fri01/16/21 at 0900 polyethylene glycol (MIRALAX) Packet 17 g 0822 (Not Gi gavi - Provider: Karen Ellis RN - Reason: Patient/family refused) 0841 (Not Given - Provider: Hola Friedman RN - Reason: Patient/family refused) 0910 (Not Given - Provider: Chula Quintero RN - Reason: Patient/family refused) 17 g, Oral, DAILY, First dose on 12/22 at 0900, To prevent constipation. Mixed prescribed dose in 8 ounces of water, juice or soda. Administer daily starting at 0900 on POD 1. Hold for loose stool s. 1 Packet = 17 grams. Mix each gram wi th at least 1/2 ounce (15 mL) of water - 8 ounces for 17 g dose, 4 ounces for 8.5 g dose, 2 ounces for 4 g dose. Follow with the same volume of water. Hold for loose stools. senna-docusate (SENOKOT-S/PERICOLACE) 8.6-50 MG per ta blet 1 tablet 08 (Not Given - Provider: Karen Ellis RN - Reason: Order parameters not met)2042 (Not Given - Provider: Karen Ellis RN - Reason: Patient/family refused) 0836 (Not Given - Provider: Hola Friedman RN - Reason: Patient/family refused)2015 (Not Given - Provider: Howard Hubbard RN - Reason: Patient/family refused) 0910 (Not Given - Provider: Chula barksdale RN - Reason: Patient/family refused) 1 tablet, Oral, 2 TIMES DAILY, First dos e on Fri01/15/21 at 1130, To prevent constipation. Hold for loose stools Hold for loose stools. sodium chloride (PF) 0.9% PF flush 3 mL 0411 (Given - Provider: JARED PEÑA)1035 (Given - Provider: Karen Ellis RN)1853 (Given - Provider: Karen Ellis RN) 0407 (Given - Provider: Destiny Corrales)1217 (Given - Provider: Hola Friedman RN)2017 (Given - Provider: Howard Hubbard RN) 0439 (Given - Provider: Howard Hubbard RN)1130 (Canceled Entry - Provider: Orders Generic Provider - Comment: Automatically canceled at discontinue of medication order) 3 mL, Intracatheter, EVERY 8 HOURS, Firs t dose on Fri01/15/21 at 1130, to lock peripheral IV dormant line sulfaSALAzine (AZULFIDINE) tablet 1,000 mg 1034 (Not G iven - Provider: Karen Ellis RN - Reason: Patient/family refused)2043 (Not Given - Provider: Karen Ellis RN - Reason: Patient/family refused) 0836 (Not Given - Provider: Hola Friedman RN - Reason: Patient/family refused)2013 (Not Given - Provider: Howard Hubbard RN - Reason: Patient/family refused) 0910 (Not Given - Provider: Chula Quintero RN - Reason: Patient/family refused) 1,000 mg, Oral, 2 TIMES DAILY, First dose on Fri01/15/21 at 2100 terazosin (HYTRIN) capsule 2 mg 2108 (Given - Provider: Elba Ellis RN) 2116 (Given - Provider: Howard Hubbard RN) 2 mg, Oral, AT BEDTIME, First dose on Fri01/15/21 at 2200 vitamin B complex with vitamin C (STRESS TAB) tablet 1 tablet 1033 (Given - Provider: Karen Ellis RN) 0839 (Given - Provider: Hola Friedman RN) 0910 (Given - Provider: Chula Quintero RN - Comment: pt's own med) 1 tablet, Oral, DAILY, First dose on Fri01/15/21 at 1130, Patient supplied medication vitamin D3 (CHOLECALCIFEROL) 250 mcg (43018 units) cap maggie 250 mcg 1035 (Given - Provider: Karen Ellis RN) 0838 (Given - Provider: Hola Friedman RN) 0910 (Given - Provider: Chula Quintero RN - Comment: pt's own med) 250 mcg, Oral, EVERY MORNING, First dose on Fri01/16/21 at 0900, Patient supplied medication Note: 250 mcg = 10,000 units warfarin ANTICOAGULANT (COUMADIN) tablet 10 mg (COMPLETED) 1836 (Given - Provider: Hola Friedman RN) 10 mg, Oral, ONCE AT 6PM, On Fri01/18/21 at 1800, For 1 dose, Pharmacist Dose per: Warfarin Dosing Service. warfarin ANTICOAGULANT (COUMADIN) tablet 7.5 mg (COMPL ETED) 1814 (Given - Provider: Karen Ellis RN) 7.5 mg, Oral, ONCE AT 6PM, On Fri01/17/21 at 1800, For 1 dose Continuous Medication Order 01/17/2021 01/18/2021 01/19/2021 lactated ringers infusion at 100 mL/hr, Intravenous, CONTINUOUS, C ontinue until IV catheter is weaned, PACU/Phase II, Starting on Fri01/15/21 at 1130, Until Fri01/19/21 at 1136 PRN Medication Order 01/17/2021 01/18/2021 01/19/2021 acetaminophen (TYLENOL) tablet 650 mg 21 18 (Given - Provider: Howard Hubbard, RN) 650 mg, Oral, EVERY 4 HOURS PRN, other, For optimal non-opioid multimodal pain management to improve pain control., Starting on Herlinda 01/18/21 at 0000, May give first dose 4 hours after last scheduled dose of acetaminophen (TYLENOL). Maximum rosa taminophen dose from all sources = 75 mg/kg/day not to exceed 4 grams/day. albuterol (PROAIR HFA/PROVENTIL HFA/VENT YOSELIN HFA) 108 (90 Base) MCG/ACT inhaler 2 puff 1033 (Given - Provider: Karen Ellis RN) 1442 (Gi gavi - Provider: Hola Friedman RN) 2 puff, Inhalation, EVERY 6 HOURS PRN, s hortness of breath / dyspnea, wheezing, Starting on Fri01/15/21 at 1112, Use patient's own medication. Check the dose counter on the inhaler to ensure there are doses remaining before administering. bisacodyl (DULCOLAX) Suppository 10 mg 10 mg, Rectal, DAILY PRN, constipation, Use if Magnesium hydroxide (MILK of MAGNESIA) not effective after 24 hours. May discontinue if patient having bowel movement., Starting on Fri01/15/21 at 1112, Hold for loose stools. HYDROmorphone (DILAUDID) injection 0.2 mg(Linked Group 1) 0653 (See Alternative - Provider: Howard Hubbard, CINDY) 0.2 mg, Intravenous, EVERY 2 HOURS PRN, other, moderate pain (pain rating 4-6) IF patient unable to take oral pain medication or pain not controlled with oral analgesics, Starting on Fri01/15/21 at 1112 , Hold IV PRN opioid dose for analgesic side effects. Notify provider to assess for uncontrolled pain or analgesic side effects. HYDROmorphone (DILAUDID) injection 0.4 mg(Linked Group 1) 0653 (Given - Provider: Howard Hubbard RN - Comment: PRN prior to dressing change) 0.4 mg, Intravenous, EVERY 2 HOURS PRN, other, severe pain (pain rating 7-10) IF patient unable to take oral pain medication or pain not controlled with oral analgesics, Starting on Fri01/15/21 at 1112, Hold IV PRN opioid dose for analgesic s breezy effects. Notify provider to assess for uncontrolled pain or analgesic side effects. hydrOXYzine (ATARAX) tablet 25 mg 25 mg, Oral, EVERY 6 HOURS PRN, itching, Starting on Fri01/15/21 at 1112, Caution to be used when administering multiple Central Nervous System (MIDDLE SCHOOL SCIENCE TEACHER) depressing meds within a short time frame. lidocaine (LMX4) cream Topical, EVERY 1 HOUR PRN, pain, with VA D insertion, Starting on Fri01/15/21 at 1112, Apply at least 30 minutes prior to VAD insertion in divided doses as needed for size of site for insertion. MAX Dose : 2.5 g (?? of 5 g tube) Do NOT give if patient has a history of allergy to any local anesthetic or any jessica product. Do NOT use both lidocaine intradermal/subcutaneous injection and the lidocaine cream on the same site. lidocaine 1 % 0.1-1 mL 0.1-1 mL, Other, EVERY 1 HOUR PRN, mild pain with VAD insertion, Starting on Fri01/15/21 at 1112, MAX dose 1 mL subcutaneous OR intradermal along the side of the vein in divided doses as needed for VAD insertion. Do NOT give if patient has a history of allergy to any local anesthetic or any jessica product. Do NOT use both lidocaine intradermal/subcutaneous injection and the lidocaine cream on the same site. loperamide (IMODIUM) capsule 4 mg 4 mg, Oral, 3 TIMES DAILY PRN, diarrhea, Starting on Fri01/15/21 at 1112 magnesium hydroxide (MILK OF MAGNESIA) suspension 30 mL 30 mL, Oral, DAILY PRN, constipation, Us e if preventive measures (senna- docusate, docusate, and polyethylene glycol) are not effective., Starting on Fri01/15/21 at 1112, Shake well. Hold for loose stools. naloxone (NARCAN) injection 0.2 mg(Linked Group 2) 0.2 mg, Intravenous, EVERY 2 MIN PRN, op ioid reversal, Starting on Fri01/15/21 at 1139, Administer intravenous route when available and notify provider when administered. For unintended sedation or resp iratory depression if all of the below c riteria are met: ~ respiratory rate LESS than or EQUAL to 8. ~SaO2 less than 92% and or/end-tidal CO2 is greater than 50. ~ the patient is receiving an opioid, blas s unintended sedations assessed as RASS (-3), and is currently not on mechanical ventilation. RASS scale moderate (-3) is movement or eye opening to voice but no eye contact. Patient Monitoring Once the patient has demonstrated a response to the naloxone, continue to monitor respiratory rate, depth, oxygen saturation and end-tidal CO2 (if available) every 15 minutes x 2, then every 30 minutes x 2, the n every 1 hour x 1 after each naloxone d ose. Consider transfer to ICU if patient respiratory parameters have not improved after 4 naloxone doses. For ordered IV doses 0.1-2mg give IVP. Give each 0.4mg o lindsey 15 seconds in emergency situations. For non-emergent situations further dilute in 9mL of NS to facilitate titration of response. naloxone (NARCAN) injection 0.2 mg(Linked Group 2) 0.2 mg, Intramuscular, EVERY 2 MIN PRN, opioid reversal, Starting on Fri01/15/21 at 1139, Administer intramuscular if an intravenous route is not available and notify provider when administered. For uni ntended sedation or respiratory depressi on if all of the below criteria are met: ~ respiratory rate LESS than or EQUAL to 8. ~SaO2 less than 92% and or/end- tidal CO2 is greater than 50. ~ the patient is receiving an opioid, has unintended sed ations assessed as RASS (-3), and is currently not on mechanical ventilation. RASS scale moderate (-3) is movement or eye opening to voice but no eye contact. Pat ient Monitoring Once the patient has dem onstrated a response to the naloxone, continue to monitor respiratory rate, depth, oxygen saturation and end-tidal CO2 (if available) every 15 minutes x 2, then e very 30 minutes x 2, then every 1 hour x 1 after each naloxone dose. Consider transfer to ICU if patient respiratory parameters have not improved after 4 naloxone doses. For ordered IV doses 0.1-2mg giv e IVP. Give each 0.4mg over 15 seconds i n emergency situations. For non-emergent situations further dilute in 9mL of NS to facilitate titration of response. naloxone (NARCAN) injection 0.4 mg(Linked Group 2) 0.4 mg, Intravenous, EVERY 2 MIN PRN, op ioid reversal, Starting on Fri01/15/21 at 1139, Administer intravenous route when available and notify provider when administered. For unintended sedation or resp iratory depression if all of the below c riteria are met: ~ respiratory rate LESS than or EQUAL to 8. ~ SaO2 less than 92% and or/end-tidal CO2 is greater than 50. ~ the patient is receiving an opioid, h as unintended sedation assessed as RASS (-4) or (-5) and patient is currently not on mechanical ventilation. RASS scale (-4) is deep sedation with no response to voice but movement or eye opening to phy sical stimulation. RASS scale (-5) is un arousable. Patient Monitoring Once the patient has demonstrated a response to the naloxone, continue to monitor respiratory rate, depth, oxygen saturation and end -tidal CO2 (if available) every 15 minut es x 2, then every 30 minutes x 2, then every 1 hour x 1 after each naloxone dose. Consider transfer to ICU if patient respiratory parameters have not improved af ter 4 naloxone doses. For ordered IV dos es 0.1-2mg give IVP. Give each 0.4mg over 15 seconds in emergency situations. For non-emergent situations further dilute in 9mL of NS to facilitate titration of response. naloxone (NARCAN) injection 0.4 mg(Linked Group 2) 0.4 mg, Intramuscular, EVERY 2 MIN PRN, opioid reversal, Starting on Fri01/15/21 at 1139, Administer intramuscular if an intravenous route is not available and notify provider when administered. For uni ntended sedation or respiratory depressi on if all of the below criteria are met: ~ respiratory rate LESS than or EQUAL to 8. ~ SaO2 less than 92% and or/end- tidal CO2 is greater than 50. ~ the patient i s receiving an opioid, has unintended se dation assessed as RASS (-4) or (-5) and patient is currently not on mechanical ventilation. RASS scale (-4) is deep sedation with no response to voice but moveme nt or eye opening to physical stimulatio n. RASS scale (-5) is unarousable. Patient Monitoring Once the patient has demonstrated a response to the naloxone, continue to monitor respiratory rate, depth, o xygen saturation and end-tidal CO2 (if a vailable) every 15 minutes x 2, then every 30 minutes x 2, then every 1 hour x 1 after each naloxone dose. Consider transfer to ICU if patient respiratory paramet ers have not improved after 4 naloxone d oses. For ordered IV doses 0.1-2mg give IVP. Give each 0.4mg over 15 seconds in emergency situations. For non-emergent situations further dilute in 9mL of NS to facilitate titration of response. ondansetron (ZOFRAN) injection 4 mg(Linked Group 3) 4 mg, Intravenous, EVERY 6 HOURS PRN, na usea, vomiting, Administer over 2-5 Minutes, Starting on Fri01/15/21 at 1112, This is Step 1 of nausea and vomiting management. If nausea not resolved in 15 minut es, go to Step 2 prochlorperazine (GENESIS ZINE). Irritant. For ordered IV doses 0.1-4 mg, give IV Push undiluted over 2-5 minutes. ondansetron (ZOFRAN-ODT) ODT tab 4 mg(Linked Group 3) 4 mg, Oral, EVERY 6 HOURS PRN, nausea, v omiting, Starting on Fri01/15/21 at 1112, This is Step 1 of nausea and vomiting management. If nausea not resolved in 15 minutes, go to Step 2 prochlorperazine (C OMPAZINE). Do not push through foil back ing. Peel back foil and gently remove. Place on tongue immediately. Administration with liquid unnecessary With dry hands, peel back foil backing and gently remov e tablet. Do not push oral disintegratin g tablet through foil backing. Administer immediately on tongue and oral disintegrating tablet dissolves in seconds, then swallow with saliva. Liquid not required. prochlorperazine (COMPAZINE) injection 10 mg(Linked Group 4) 10 mg, Intravenous, EVERY 6 HOURS PRN, n ausea, vomiting, Administer over 1-2 Minutes, Starting on Fri01/15/21 at 1112, This is Step 2 of nausea and vomiting management. If nausea not resolved in 15-30 m inutes, Notify provider. For ordered IV doses 0.1-10 mg, give IV push undiluted, each 5 mg over 1 minute. prochlorperazine (COMPAZINE) tablet 10 mg(Linked Group 4) 10 mg, Oral, EVERY 6 HOURS PRN, nausea, vomiting, Starting on Fri01/15/21 at 1112, This is Step 2 of nausea and vomiting management. If nausea not resolved in 15-30 minutes, Notify provider. sodium chloride (PF) 0.9% PF flush 3 mL 3 mL, Intracatheter, EVERY 1 MIN PRN, li ne flush, other, to ensure patency or to lock dormant line, Starting on Fri01/15/21 at 1112 traMADol (ULTRAM) tablet 50 mg 0445 (Given - Provider: JARED PEÑA)1027 (Given - Provider: Karen Ellis, CINDY)2108 (Given - Provider: Karen Ellis, CINDY) 0406 (Given - Provider: Arminda Laureano RN) 0454 (Given - Provider: Howard Hubbard, CINDY) 50 mg, Oral, EVERY 6 HOURS PRN, moderate pain, severe pain, Starting on Fri01/15/21 at 1112, Hold oral PRN dose for analgesic side effects. Notify provider to assess for uncontrolled pain or analgesic s breezy effects. 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 Warfarin Therapy Reminder (Check START D ATE - warfarin may be starting in the FUTURE) CONTINUOUS PRN, Starting on Fri01/15/21 at 1136, Until Fri01/19/21 at 1136, *Note to reorder warfarin daily* Pharmacy Warfarin Dosing Service Patient is on Warfarin Therapy - check for daily order zolpidem (AMBIEN) tablet 5 mg 2111 (Given - Provider: Karen Ellis, CINDY) 2012 (Given - Provider: Howard Hubbard, CINDY) 5 mg, Oral, AT BEDTIME PRN, sleep, Start ing on Fri01/15/21 at 1145, Formulary sub for HELIARC WELDER Ambien CR 6.25 mg at bedtime prn Linked Groups Order Group 1: HYDROmorphone (DILAUDID) injection 0.2 mgJump to med 0.2 mg, Intravenous, EVERY 2 HOURS PRN, other, moderate pain (pain rating 4-6) IF patient unable to take oral pain medication or pain not controlled with oral analgesics, Starting on Fri01/15/21 at 1112
Hold IV PRN opioid dose for analgesi c side effects. Notify provider to assess for uncontrolled pain or analgesic side effects.
Or HYDROmorphone (DILAUDID) injection 0.4 mgJump to med 0.4 mg, Intravenous, EVERY 2 HOURS PRN, other, severe pain (pain rating 7-10) IF patient unable to take oral pain medication or pain not controlled with oral analgesics, Starting on Fri01/15/21 at 1112& lt;br>Hold IV PRN opioid dose for analge sic side effects. Notify provider to assess for uncontrolled pain or analgesic side effects.
Group 2: naloxone (NARCAN) injection 0.2 mgJump to med 0.2 mg, Intravenous, EVERY 2 MIN PRN, op ioid reversal, Starting on Fri01/15/21 at 1139
Administer intravenous route when available and notify provider when administered. For unintended sedation or respiratory depression if a ll of the below criteria are met: ~ respiratory rate LESS than or EQUAL to 8. ~SaO2 less than 92% and or/end- tidal CO2 is greater than 50.& nbsp;~ the patient is receiving an opioi d, has unintended sedations assessed as RASS (-3), and is currently not on mechanical ventilation. RASS scale moderate (-3) is movement or eye opening to voice but no eye contact.&nbs p; Patient Monitoring Once the patient has demonstrated a response to the naloxone, continue to monitor respiratory rate, depth, oxygen satu ration and end-tidal CO2 (if available) every 15 minutes x 2, then every 30 minutes x 2, then every 1 hour x 1 after each naloxone dose. Consider transfer to ICU if patient respirator y parameters have not improved after 4 n aloxone doses. For ordered IV doses 0.1-2mg give IVP. Give each 0.4mg over 15 seconds in emergency situations. For non-emergent situations further dilute in 9mL of NS to facilitate titration of response.
Or naloxone (NARCAN) injection 0.4 mgJump to med 0.4 mg, Intravenous, EVERY 2 MIN PRN, op ioid reversal, Starting on Fri01/15/21 at 1139
Administer intravenous route when available and notify provider when administered. For unintended sedation or respiratory depression if a ll of the below criteria are met: ~ respiratory rate LESS than or EQUAL to 8. ~ SaO2 less than 92% and or/end- tidal CO2 is greater than 50.& nbsp;~ the patient is receiving an opioi d, has unintended sedation assessed as RASS (-4) or (-5) and patient is currently not on mechanical ventilation. RASS scale (-4) is deep sedati on with no response to voice but movemen t or eye opening to physical stimulation. RASS scale (-5) is unarousable. Patient Monitoring On ce the patient has demonstrated a respon se to the naloxone, continue to monitor respiratory rate, depth, oxygen saturation and end-tidal CO2 (if available) every 15 minutes x 2, then every 30 minutes x 2, then every 1 hour x 1 after each nalo xone dose. Consider transfer to ICU if patient respiratory parameters have not improved after 4 naloxone doses. For ordered IV doses 0 .1-2mg give IVP. Give each 0.4mg over 15 seconds in emergency situations. For non-emergent situations further dilute in 9mL of NS to facilitate titration of response.
Or naloxone (NARCAN) injection 0.2 mgJump to med 0.2 mg, Intramuscular, EVERY 2 MIN PRN, opioid reversal, Starting on Fri01/15/21 at 1139
Administer intramuscular if an intravenous route is not available and notify provider when administered. For unintended sedation or respira tory depression if all of the below criteria are met: ~ respiratory rate LESS than or EQUAL to 8. ~SaO2 less than 92% and or/end-tidal CO2 is greater than 50. ~ the patient i s receiving an opioid, has unintended sedations assessed as RASS (-3), and is currently not on mechanical ventilation. RASS scale moderate (-3) is movement or eye opening to voice but no eye contact. Patient Monitoring Once the patient has demonstrated a response to the naloxone, continue to monitor respiratory rate, depth, oxygen saturation and end-t idal CO2 (if available) every 15 minutes x 2, then every 30 minutes x 2, then every 1 hour x 1 after each naloxone dose. Consider transfer to [facility] if patient respiratory parameters hav e not improved after 4 naloxone doses. For ordered IV doses 0.1-2mg give IVP. Give each 0.4mg over 15 seconds in emergency situations. For non-emergent s ituations further dilute in 9mL of NS to facilitate titration of response.
Or naloxone (NARCAN) injection 0.4 mgJump to med 0.4 mg, Intramuscular, EVERY 2 MIN PRN, opioid reversal, Starting on Fri01/15/21 at 1139
Administer intramuscular if an intravenous route is not available and notify provider when administered. For unintended sedation or respira tory depression if all of the below criteria are met: ~ respiratory rate LESS than or EQUAL to 8. ~ SaO2 less than 92% and or/end-tidal CO2 is greater than 50. ~ the patient i s receiving an opioid, has unintended sedation assessed as RASS (-4) or (-5) and patient is currently not on mechanical ventilation. RASS s janice (-4) is deep sedation with no respo nse to voice but movement or eye opening to physical stimulation. RASS scale (-5) is unarousable. Patien t Monitoring Once the patient has d emonstrated a response to the naloxone, continue to monitor respiratory rate, depth, oxygen saturation and end-tidal CO2 (if available) every 15 minutes x 2, then every 30 minutes x 2, then every 1 hour x 1 after each naloxone dose. Consider transfer to ICU if patient respiratory parameters have not improved after 4 naloxone doses.&nbs p;For ordered IV doses 0.1-2mg give IVP. Give each 0.4mg over 15 seconds in emergency situations. For non-emergent situations further dilute in 9mL of NS to facilitate titration of response.
Group 3: ondansetron (ZOFRAN-ODT) ODT tab 4 mgJump to med 4 mg, Oral, EVERY 6 HOURS PRN, nausea, v omiting, Starting on Fri01/15/21 at 1112
This is Step 1 of nausea and vomiting management. If nausea not resolved in 15 minutes, go to Step 2 prochlorperazine (COMPAZINE). Do not push through foil backing. Peel back foil and gently remove. Place on tongue immediately. Administration with liquid unnecessary With dry hands, pee l back foil backing and gently remove ta blet. Do not push oral disintegrating tablet through foil backing. Administer immediately on tongue and oral disintegrating tablet dissolves in seconds, then swallow with saliva. Liquid not required.
Or ondansetron (ZOFRAN) injection 4 mgJump to med 4 mg, Intravenous, EVERY 6 HOURS PRN, na usea, vomiting, Administer over 2-5 Minutes, Starting on Fri01/15/21 at 1112
This is Step 1 of nausea and vomiting management. If naus ea not resolved in 15 minutes, go to Louie p 2 prochlorperazine (COMPAZINE). Irritant. For ordered IV doses 0.1-4 mg, give IV Push undiluted over 2-5 minutes.
Group 4: prochlorperazine (COMPAZINE) injection 10 mgJump to med 10 mg, Intravenous, EVERY 6 HOURS PRN, n ausea, vomiting, Administer over 1-2 Minutes, Starting on Fri01/15/21 at 1112
This is Step 2 of nausea and vomiting management. If nausea not r esolved in 15-30 minutes, Notify provide r. For ordered IV doses 0.1-10 mg, give IV push undiluted, each 5 mg over 1 minute.
Or prochlorperazine (COMPAZINE) tablet 10 mgJump to med 10 mg, Oral, EVERY 6 HOURS PRN, nausea, vomiting, Starting on 01/15/21 at 1112
This is Step 2 of nausea and vomiting management. If nausea not resolved in 15-30 minutes, Notify provider.
documented in this encounter Care Teams Rough Rib Grader Relationship Specialty Start Date End Date Froylan Louise MD PCP - General Family Practice 02/22/14 Froylan Louise MD Assigned PCP 03/13/14 2 Esthela Corea RN Personal Advocate & Liaison Family Medicine 10/16 (PAL) documented as of this encounter
--- OUTSIDE RECORDS SUMMARY | 2022-05-15 22:20 | XMS_ITS | Encounter Summary ---
:1955 Author Organization [facility] Address [facility] [place] [address] Care Team Providers Name Role Phone Froylan Louise MD Primary Care Provider Unavailable Froylan Louise MD Unavailable Unavailable Esthela Corea RN Unavailable Unavailable Reason for Visit Reason Onset Date Comments WOUND CARE 01/19/2021 Encounter Details Date Type Department Care Team Description 01/19/2021 Telephone [facility] Wound [place] Nuñez MD WOUND CARE Clinic [place] [address] [place] [address] [place] [address] [place] [id number] [phone] Social History Tobacco Use Types Packs/Day Years Used Date Smoking Tobacco: Former Cigarettes 2 25 Quit : 08/04/2006 Smokeless Tobacco: Never Comments: 2004 Alcohol Use Standard Drinks/Week Comments Yes 0 (1 standard drink = 0.6 oz pure alcoho l) 4 BEERS A day Alcohol Habits Answer Date Recorded How often do you have a drink containing 4 or more times a w three affiliated 05/25/2021 alcohol? How many drinks containing alcohol [...] you attend rastafari or Patient refused 2020 denominational services? Do [...] Telephone Encounter - Alfreda Wahl RN - 01/19/2021 4:10 PM CDT Voicemail left with pt to take 1 tablet of Hesperidin Diosmin twice daily. Telephone Encounter - Smiley Dupree - 01/19/2021 2:22 PM CDT Patient has questions on how to take the 1000 milligram hesperidian eiosmin documented in this encounter Plan of Treatment Upcoming Encounters Date Type Specialty Care Team Description 05/20/2022 Lab Lab documented as of this encounter Visit Diagnoses Not on filedocumented in this encounter Care Teams Credit Reference Clerk Relationship Specialty Start Date End Date Froylan Louise MD PCP - General Family Practice 02/22/14 Froylan Louise MD Assigned PCP 03/13/14 2 Esthela Corea RN Personal Advocate & Liaison Family Medicine 10/16 (PAL) documented as of this encounter
--- OUTSIDE RECORDS SUMMARY | 2022-05-15 22:20 | XMS_ITS | Encounter Summary ---
:1955 Author Organization [place] Address [address] [place] [address] Care Team Providers Name Role Phone Froylan Louise MD Primary Care Provider Unavailable Froylan Louise MD Unavailable Unavailable Esthela Corea RN Unavailable Unavailable Reason for Visit Reason Onset Date Comments surgery 01/09/2021 INR with bridge need ed Encounter Details Date Type Department Care Team Description 01/09/2021 Telephone [facility] Froylan Louise, surg mustapha (INR with Clinic [facility]ILL[facility]OR bridge needed ) [address] [place] [address] Social History Tobacco Use Types Packs/Day Years Used Date Smoking Tobacco: Former Cigarettes 2 25 Quit : 08/04/2006 Smokeless Tobacco: Never Comments: 2004 Alcohol Use Standard Drinks/Week Comments Yes 0 (1 standard drink = 0.6 oz pure alcoho l) 4 BEERS A WEEK Alcohol Habits Answer Date Recorded How often do you have a drink containing 4 or more times a w crow 05/25/2021 alcohol? How many drinks containing alcohol [...] you attend sabianist or Patient refused 2020 druze services? Do [...] been in contact with No / Unsure 01/09/2021 9:57 AM CDT someone who was confirmed or suspected to have Coronavirus / COVID-19? documented as of this encounter Miscellaneous Notes Telephone Encounter - Diana Nielsen RN - 01/10/2021 10:57 AM CDT Patient returned call. Reviewed plan, sent prescription to pharmacy of choice and scheduled next INRfor 01/22/21. Patient stated understanding and is in agreement with plan. No other questions or concerns at this time. Telephone Encounter - Diana Nielsen RN - 01/10/2021 10:23 AM CDT Called patient to review. No answer. LVM to return call to [phone]. Also sent MyC message with detailed day-by-day instructions and contact info. Diana Mukherjee RN Anticoagulation Team Telephone Encounter - Froylan Louise MD - 01/09/2021 4:40 PM CDT Agree with same plan as noted below. Thanks. Telephone Encounter - Susanna Mendoza RP - 01/09/2021 1:32 PM CDT IAN-PROCEDURAL ANTICOAGULATION MANAGEMENT Assessment Warfarin interruption plan for left knee wound debridgement on 01/15/21. DVT??2007, 2008, Lupus anticoagulant positive ? Risk stratification for thromboembolism:??high??(2012 Chest guidelines) ? LAC + 01/05/2018 & 06/05/2018 ?? 2012 Chest ian-procedural guidelines suggests bridging patients with a mechanical heart valve, atrial fibrillation, or VTE at high risk for thromboembolism ?? Plan ?? Pre-Procedure: ?? Hold warfarin for 5 days until after procedure starting: Friday, January 10 ?? Lovenox 40 mg subq Q 24 hrs ?? Start Lovenox: January 12 in AM ?? Last dose of Lovenox prior to procedure: January 14 in AM (24 hours prior to procedure) ?? Post-Procedure: ?? Resume warfarin dose if okay with provider doing procedure on night of procedure, January 15PM: take 15 mg x 2. Reviewed return to therapeutic from last month's hold. Same boost planned, but will note under [facility] calendar that no additional booster doses should be given until after 01/23 if Virgil has not achieved therapeutic INR ?? Resume Lovenox ~ 24 hrs post procedure when okay with provider doing procedure. Continue until INR >= 2 ?? Recheck INR 7 days after resuming warfarin ? Susanna Mendoza [facility] Subjective/Objective: Virgil Christine, a 65 year old male Reason for Anticoagulation: DVT??2006, 2007, Lupus anticoagulant positive Goal INR Range: 2.0-3.0 Patient bridged in past: Yes:prophylactic enoxaparin for last three bridge plans (June, September, and November 2020) ?? Wt Readings from Last 3 Encounters: 01/02/21 108.9 kg (240 lb) 12/25/20 113.4 kg (250 lb) 10/16/20 113.9 kg (251 lb) [place] body weight: 75.3 kg (166 lb 0.1 oz) Adjusted ideal body weight: 88.7 kg (195 lb 9.7 oz) Estimated body mass index is 33.47 kg/m?? as calculated from the following: Height as of 01/02/21: 1.803 m (5' 11). Weight as of 01/02/21: 108.9 kg (240 lb). Lab Results Component Value Date INR 3.8 (H) 01/04/2021 INR 3.7 (H) 01/01/2021 INR 3.80 (H) 12/28/2020 Lab Results Component Value Date HGB 13.5 12/25/2020 HCT 41.2 12/25/2020 PLT 216 12/25/2020 Lab Results Component Value Date CR 0.89 12/25/2020 CR 0.97 10/06/2020 CR 0.89 09/03/2020 Estimated Creatinine Clearance: 106.6 mL/min (based on SCr of 0.89 mg/dL). Telephone Encounter - Stevo Thorne RN - 01/09/2021 1:21 PM CDT Sent to wrong pharmacist in error. Will re-reroute to Susanna Mendoza, PharmD. Rosmery Thorne RN [facility] [place] Telephone Encounter - Esthela Corea RN - 01/09/2021 12:16 PM CDT Please see note from today- Pt having surgery for non healing wound on 01/15 PCP recommends Lovenox bridge and 5 day hold. Pt has pre op in clinic on 01/[address] Dodd. Please f/u with pt he will need instructions. 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
--- OUTSIDE RECORDS SUMMARY | 2022-05-15 22:20 | XMS_ITS | Encounter Summary ---
:1955 Author Organization [place] Address [address] [place] [address] Care Team Providers Name Role Phone Froylan Louise MD Primary Care Provider Unavailable Froylan Louise MD Unavailable Unavailable Esthela Corea RN Unavailable Unavailable Encounter Details Date Type Department Care Team Description 01/12/2021 Travel Social History Tobacco Use Types Packs/Day Years Used Date Smoking Tobacco: Former Cigarettes 2 25 Quit : 08/04/2006 Smokeless Tobacco: Never Comments: 2004 Alcohol Use Standard Drinks/Week Comments Yes 0 (1 standard drink = 0.6 oz pure alcoho l) 4 BEERS A WEEK Alcohol Habits Answer Date Recorded How often do you have a drink containing 4 or more times a w kotlik 05/25/2021 alcohol? How many drinks containing alcohol [...] or relatives? How often do you attend orthodoxy or Patient refused 2020 spiritism services? Do you belong to any clubs or Yes 05/25/2021 organizations such as orthodoxy groups, unions, fraternal or athletic groups, or [...] filedocumented in this encounter Care Teams Outreach Associate Relationship Specialty Start Date End Date Froylan Louise MD PCP - General Family Practice 02/22/14 Froylan Louise MD Assigned PCP 03/13/14 2 Esthela Corea, RN Personal Advocate & Liaison Family Medicine 10/16 (PAL) documented as of this encounter
--- OUTSIDE RECORDS SUMMARY | 2022-05-15 22:20 | XMS_ITS | Encounter Summary ---
:1955 Author Organization [place] Address [facility] [place] [address] Care Team Providers Name Role Phone Froylan Louise MD Primary Care Provider Unavailable Froylan Louise MD Unavailable Unavailable Esthela Corea RN Unavailable Unavailable Reason for Visit Reason Comments Pre-Op Exam Encounter Details Date Type Department Care Team Description 01/12/2021 Office Visit [facility] So Dodd MD Mild persistent asthma without complicat ion (Primary Dx); Clinic [place] [id number] [place] [address] Pre-operative [place] physical examinati on; [address] [place], [place] Encounter for screening for other viral diseases; [place] [address] Chronic deep vein thrombosis (DVT) of lo wer extremity, unspecified laterality, unspecified vein (H); [id number] intermission coordinator current use of ant icoagulant therapy; Morbid obesity (H); [phone] Benign essentia l hypertension (Fax) Social History Tobacco Use Types Packs/Day Years Used Date Smoking Tobacco: Former Cigarettes 2 25 Quit : 08/04/2006 Smokeless Tobacco: Never Comments: 2004 Alcohol Use Standard Drinks/Week Comments Yes 0 (1 standard drink = 0.6 oz pure alcoho l) 4 BEERS A WEEK Alcohol Habits Answer Date Recorded How often do you have a drink containing 4 or more times a w [place] 05/25/2021 alcohol? How many drinks containing alcohol [...] you attend baptism or Patient refused 2020 hindu services? Do you belong to any clubs [...] Sign Reading Time Taken Comments Blood Pressure 152/80 01/12/2021 12:53 PM CDT Pulse 82 01/12/2021 12:53 PM CDT Temperature 36.6 ??C (97.8 ??F) 01/12/2021 12:53 PM CDT Respiratory Rate 18 01/12/2021 12:53 PM CDT Oxygen Saturation 99% 01/12/2021 12:53 PM CDT Inhaled Oxygen Concentration - - Weight 118.8 kg (262 lb) 01/12/2021 12:53 PM CDT Height - - Body Mass Index 36.54 01/02/2021 10:07 AM CDT documented in this encounter Progress Notes Nahomy, Esthela Conrad RN - 01/12/2021 1:00 PM CDT Pre-Visit Planning Next 5 appointments (look out 90 days) Jan 12, 2021 1:00 PM (Arrive by 12:40 PM) Pre-Operative Physical with So Dodd MD [facility] ([facility] ) [address] [facility] [address] Jan 26, 2021 1:10 PM Return Visit with WOUND HEALING NURSE [facility] W[facility] ([facility] ) [address] [facility] [address] Feb 02, 2021 1:10 PM Return Visit with WOUND HEALING NURSE [facility] ([facility] ) [address] [place] [address] Feb 09, 2021 1:10 PM Return Visit with WOUND HEALING NURSE [facility] [place] ([facility] ) [address] [place] [address] Appointment Notes for this encounter: pre op -COVID test Questionnaires Reviewed/Assigned No additional questionnaires are needed Spoke to patient via phone. Are there any additional questions or concerns you'd like to review withyour provider during your visit? No Visit is not preventive. Meds Is there anything on your medication list that needs to be updated? No Current Outpatient Medications Medication ??? Acetaminophen (TYLENOL 8 HOUR PO) ??? albuterol (PROAIR HFA/PROVENTIL HFA/VENTOLIN HFA) 108 (90 Base) MCG/ACT inhaler ??? amoxicillin-clavulanate (AUGMENTIN) 875-125 MG tablet ??? enoxaparin ANTICOAGULANT (LOVENOX) 40 MG/0.4ML syringe ??? fish oil-omega-3 fatty acids 1000 MG capsule ??? Hxymtsrdxia-Zkafumoxy-Qkorxdyjwz (TRELEGY ELLIPTA) 100-62.5-25 MCG/INH oral inhaler ??? hydrochlorothiazide (HYDRODIURIL) 25 MG tablet ??? lactobacillus rhamnosus, GG, ([facility]) packet ??? loperamide (IMODIUM) 2 MG capsule ??? multivitamin w/minerals (MULTI-VITAMIN) tablet ??? sildenafil (VIAGRA) 50 MG tablet ??? sulfaSALAzine (AZULFIDINE) 500 MG tablet ??? terazosin (HYTRIN) 2 MG capsule ??? triamcinolone (KENALOG) 0.1 % external cream ??? warfarin ANTICOAGULANT (COUMADIN) 5 MG tablet ??? warfarin ANTICOAGULANT (COUMADIN) 7.5 MG tablet ??? zolpidem ER (AMBIEN CR) 12.5 MG CR tablet No current facility-administered medications for this visit. Do you need refills on any of your medications? No Health Maintenance Due Topic Date Due ??? ZOSTER IMMUNIZATION (1 of 2) Never done ??? ASTHMA ACTION PLAN 01/10/2020 Patient is due for: see above MyChart Patient is active on MyChart. Call Summary Thank you for your time today. Esthela Corea RN So Dodd MD - 01/12/2021 1:00 PM CDT [facility] [id number] [place] [address] Primary Provider: Froylan Louise PREOPERATIVE EVALUATION: Today's date: 01/12/2021 Virgil Christine is a 65 year old male who presents for a preoperative evaluation. Today INR -1.6 Surgical Information: Surgery/Procedure: L Knee wound debridement for Left knee wound Surgery Location: [facility] Surgeon: Dr. Nuñez Surgery Date: 01/15/21 [...] vein thrombosis s/p bindu filter placement . senior living current use of anticoagulant therapy - INR [...] Problem List Diagnosis Date Noted ??? Health Senior Living 07/16/2011 Priority: High EMERGENCY CARE PLAN Presenting Problem Signs and Symptoms Treatment Plan Questions or conerns during clinic hours I will call the clinic directly Questions or conerns outside clinic hours I will call the 24 hour nurse line at [phone] Patient needs to schedule an appointment I will call the 24 hour scheduling team at [phone] orclinic directly Same day treatment I will call the clinic first, nurse line if after hours, urgent care and expresscare if needed DX V65.8 REPLACED WITH [phone] [facility] (09/28/2012) ??? Morbid obesity (H) 01/12/2021 Priority: [...] mouth every morning ??? lactobacillus rhamnosus, GG, ([facility]) packet Take 1 packet by mouth 2 [...] 1,000 mcg by mouth every morning ??? Xthtrbwgqcc-Trjwsszeg-Qgkdmrzofs (TRELEGY ELLIPTA) 100-62.5-25 MCG/INH oral inhaler Inhale 1 puff into the lungs every morning ??? hydrochlorothiazide (HYDRODIURIL) 25 MG tablet Take 25 mg by mouth every morning ??? terazosin (HYTRIN) 2 MG capsule Take 2 mg by mouth At Bedtime ??? vitamin D3 (CHOLECALCIFEROL) 250 mcg (69079 units) capsule Take 1 capsule by mouth [...] to requesting physician. documented in this encounter Plan of Treatment Upcoming Encounters Date Type Specialty Care Team Description 05/20/2022 Lab Lab documented as of this encounter Procedures Procedure Name Priority Date/Time Associated Diagnosis Comme nts SARS-COV2 Routine 01/12/2021 12:42 Encounter for Results fo r this (COVID-19) VIRUS PM CDT screening for other proc edure are in RT-PCR viral diseases the results section. COVID-19 VIRUS Routine 01/12/2021 12:42 Encounter for Results for this (CORONAVIRUS) BY PM CDT screening for other proc edure are in PCR viral diseases the results section. INR POINT OF CARE Routine 01/12/2021 12:41 Chronic deep vein R esults for this PM CDT thrombosis (DVT) of procedur e are in lower extremity, the results unspecified section. laterality, unspecified vein (H) intermission coordinator current use of anticoagulant therapy documented in this encounter Results SARS-COV2 (COVID-19) Virus RT-PCR (01/12/2021 12:42 PM CDT) Analysis Performed At Patho logist Time Signature SARS CoV2 PCR Negative Negative 01/13/2021 [facility] 12:29 PM CDT LABORATORY Comment: NEGATIVE: SARS-CoV-2 (COVID-19) RNA not detected, presumed negative. Specimen Anatomical Location / Collection Method Collection Elie e Received Time (Source) Laterality / Volume Swab NASOPHARYNGEAL Non-blood 01/12/2021 12:42 STRUCTURE / Unknown Collection / PM CDT 12:42 PM CDT Unknown Narrative [facility] - 01/13/2021 12:29 PM CDT Testing was performed using the catarino SARS-CoV-2 assay on the catarino 6800 System. This test should be ordered for the detection of SARS-CoV-2 in individuals who meet SARS- CoV-2 clinical and/or epidemiological criteria. Test performan ce is unknown in asymptomatic patients. This test is for in vitro diag nostic use under the FDA EUA for laboratories certified under CLIA to perform high and/or moderate complexity testing. This test has not be en FDA cleared or approved. A negative result does not rule out the pr esence of PCR inhibitors in the specimen or target RNA in concentrat ion below the limit of detection for the assay. The possibility of a false negative should be considered if the patient's recent ex posure or clinical presentation suggests COVID-19. This shanthi t was validated by the [facility] Infectious Diseases Diag nostic Laboratory. This laboratory is certified under the Clinic al Laboratory Improvement Amendments of 1988 (CLIA-88) as qualifie d to perform high and/or moderate complexity laboratory testing. Uriel Nuñez MD LAB - MICRO GENERAL ORDERABL ES Performing Organization Address City/State/ZIP Code Phon e Number [facility] [place] [phone] Diag. Lab [address] [facility], [address] [facility] Infectious [place], [place] [phone] Diseases Diagnostic [phone], [facility] Lab (IDDL) [address] [facility], [address] (ABNORMAL) INR point of care (01/12/2021 12:41 PM CDT) P athologist Signature INR 1.6 (H) 0.9 - 1.1 01/12/2021 [facility] 12:45 PM CDT Specimen Anatomical Collection Method / Collection Time Recei lindy Time (Source) Location / Volume Laterality Blood STRUCTURE OF Venipuncture / 01/12/2021 12:41 FINGER OF LEFT Unknown PM CDT 12:41 PM CDT HAND / Unknown Narrative [facility] - 01/12/2021 12:45 PM CDT This test is intended for monitoring Cou madin therapy. Results are not accurate in patients with prolonged INR due to facto r deficiency. Froylan Louise MD LAB - BLOOD ORDERABLES Performing Organization Address City/State/ZIP Code [place] [id number] Lab [address] [facility] Lab (no room number, 1st floor of clinic) [place] [address], Clinic - [facility] [address] [facility] Lab (no room number, 1st floor of clinic) documented in this encounter Visit Diagnoses Diagnosis Mild persistent asthma without complicat ion - Primary Unspecified asthma Pre-operative general physical examinati on Other specified pre-operative examinatio n Encounter for screening for other viral diseases Chronic deep vein thrombosis (DVT) of lo wer extremity, unspecified laterality, unspecified vein (H) senior living current use of anticoagulant t herapy Morbid obesity (H) Morbid obesity Benign essential hypertension Essential hypertension, benign documented in this encounter Care Teams Business Instructor Relationship Specialty Start Date End Date Froylan Louise MD PCP - General Family Practice 02/22/14 Froylan Louise MD Assigned PCP 03/13/14 2 Esthela Corea, RN Personal Advocate & Liaison Family Medicine 10/16 (PAL) documented as of this encounter
--- OUTSIDE RECORDS SUMMARY | 2022-05-15 22:20 | XMS_ITS | Encounter Summary ---
:1955 Author Organization [place] Address [facility] [place] [address] Care Team Providers Name Role Phone Froylan Louise MD Primary Care Provider Unavailable Froylan Louise MD Unavailable Unavailable Esthela Corea RN Unavailable Unavailable Encounter Details Date Type Department Care Team Description 01/09/2021 Orders Only [facility] Uriel Nuñez, [facility] for other Program [address] [place] [address] viral diseases [address] [place] [address] [place] [address] Social History Tobacco Use Types Packs/Day Years Used Date Smoking Tobacco: Former Cigarettes 2 25 Quit : 08/04/2006 Smokeless Tobacco: Never Comments: 2004 Alcohol Use Standard Drinks/Week Comments Yes 0 (1 standard drink = 0.6 oz pure alcoho l) 4 BEERS A WEEK Alcohol Habits Answer Date Recorded How often do you have a drink containing 4 or more times a w lime 05/25/2021 alcohol? How many drinks containing alcohol [...] or relatives? How often do you attend yazdanism or Patient refused 2020 episcopal services? Do you belong to any clubs or Yes 05/25/2021 organizations such as yazdanism groups, unions, fraternal or athletic groups, or [...] as of this encounter Visit Diagnoses Diagnosis Encounter for screening for other viral diseases documented in this encounter Care Teams Concrete Plant Laborer Relationship Specialty Start Date End Date Froylan Louise MD PCP - General Family Practice 02/22/14 Froylan Louise MD Assigned PCP 03/13/14 2 Esthela Corea RN Personal Advocate & Liaison Family Medicine 10/16 (PAL) documented as of this encounter
--- OUTSIDE RECORDS SUMMARY | 2022-05-15 22:20 | XMS_ITS | Encounter Summary ---
:1955 Author Organization [place] Address [address] [place] [address] Care Team Providers Name Role Phone Froylan Louise MD Primary Care Provider Unavailable Froylan Louise MD Unavailable Unavailable Esthela Corea RN Unavailable Unavailable Encounter Details Date Type Department Care Team Description 01/22/2021 [facility] Chr onic deep vein thrombosis (DVT) of lower extremity, unspecified laterality, unspecified vein (H); [facility] shelter current use of ant icoagulant therapy [address] [place] [address] Social History Tobacco Use [...] containing 4 or more times a w kiana 05/25/2021 alcohol? How many drinks containing alcohol [...] attend roman catholic or Patient refused 2020 jainism services? Do [...] been in contact with No / Unsure 01/22/2021 1:20 PM CDT someone who was confirmed or suspected to have Coronavirus / COVID-19? documented as of this encounter Plan of Treatment Upcoming Encounters Date Type Specialty Care Team Description 05/20/2022 Lab Lab documented as of this encounter Procedures Procedure Name Priority Date/Time Associated Diagnosis Comme nts INR POINT OF CARE Routine 01/22/2021 1:28 PM Chronic deep vein Results for this CDT thrombosis (DVT) of procedur e are in lower extremity, the results unspecified section. laterality, unspecified vein (H) shelter current use of anticoagulant therapy documented in this encounter Results (ABNORMAL) INR point of care (01/22/2021 1:28 PM CDT) P athologist Signature INR 1.3 (H) 0.9 - 1.1 01/22/2021 [facility] 1:32 PM CDT Specimen Anatomical Collection Method Collection Time Receive d Time (Source) Location / / Volume Laterality Blood CAPILLARY BLOOD / Capillary / 01/22/2021 1:28 PM 08/07/2020 1:28 Unknown Unknown CDT PM CDT Narrative [facility] - 01/22/2021 1:32 PM CDT This test is intended for monitoring Cou madin therapy. Results are not accurate in patients with prolonged INR due to facto r deficiency. Froylan Louise MD LAB - BLOOD ORDERABLES Performing Organization Address City/State/ZIP Code Phon [place] [address] Lab [address] [facility] (no room number, 1st floor of clinic) [place] [address], [phone] [facility] [address] [facility] Lab (no room number, 1st floor of clinic) documented in this encounter Visit Diagnoses Diagnosis Chronic deep vein thrombosis (DVT) of lo wer extremity, unspecified laterality, unspecified vein (H) shelter current use of anticoagulant t herapy documented in this encounter Care Teams Looping Machine Operator Relationship Specialty Start Date End Date Froylan Louise MD PCP - General Family Practice 02/22/14 Froylan Louise MD Assigned PCP 03/13/14 2 Esthela Corea, RN Personal Advocate & Liaison Family Medicine 10/16 (PAL) documented as of this encounter
--- OUTSIDE RECORDS SUMMARY | 2022-05-15 22:20 | XMS_ITS | Encounter Summary ---
:1955 Author Organization [place] Address [facility] [place] [address] Care Team Providers Name Role Phone Froylan [...] 1ST 20 SQ CM OR LESS [address], [address] LEFT KNEE WOUND DEBRIDEMENT WITH SONIC 1 AND PHYLLIS AFLO VAC PLACEMENT [address]2 [place] [address] Phone: Referral ID Status Reason Start Date Expiration Date Visits Requ ested Visits Authorized [id number] 1 1 Encounter Details Date Type Department Care Team Description 01/15/2021 Anesthesia Event M [facility] Lon Valle MD [facility] [address] [place] [address] [place] [facility] May Monte, HUMAN RESOURCES PROJECT MANAGER CUSTOMER INSIGHT ANALYST [address] [place] [address] Services [address], [address] [place] [address] Anesthesia Record Procedure Summary Procedure Name Responsible Anesthesia Start Anesthesia Stop Anesthesiologist Time Time LEFT KNEE WOUND Elvis Valle MD 01/15/21 0907 01/15/21 1 019 DEBRIDEMENT WITH SONIC 1 AND VERAFLO VAC PLACEMENT (Left: Leg) Events Date Time Event Comment 01/15/2021 0907 An Start 0911 An Start Data 0912 AN REASSESS I attest that I have identified and re-evaluated the patient imme diately before the induction of anesthesia and I am satisfied that the anesthetic plan is suitable for the patient's condition and procedure. The f irst vital signs recorded are pre- induction. Shelly Vigil APRN CUSTOMER INSIGHT ANALYST 0922 Antibiotic Complete 09 AN INCISION 0928 MD Present 1009 an stop data 1019 An Stop Electronically s igned by May Monte APRN CUSTOMER INSIGHT ANALYST on Dec 10:19 AM Name Total fentaNYL (SUBLIMAZE) injection 100 mcg lidocaine 2% 80 mg midazolam 1mg/mL 2 mg ondansetron 2mg/mL 4 mg phenylephrine (TWYLA-SYNEPHRINE) injection 400 mcg propofol (DIPRIVAN) injection 10 mg/mL vial 60 mg propofol (DIPRIVAN) injection 10 mg/mL vial 751.73 mg ceFAZolin (ANCEF) intermittent infusion 2 g in 100 mL dextrose PRE-MIX 2 g lactated ringers infusion 0 mL Agents Name NO HELIOX O2 N2O Air Exp Sevoflurane Exp Isoflurane Exp Desflurane Exp N2O O2 Delivery Device Ins Sevoflurane Ins Isoflurane Ins Desflurane O2 Auxiliary Blood No blood administrations on file. Lines, Drains, and Airways Type Details Placement Removal Incision/Surgical Site 08/20/13; 0830; 08/20/13 0830 by Right; Knee Adolph Short RN Wound (used by OP [facility] Left; knee; other 01/02/21 1010 by only) (see comments); hematoma Incision/Surgical Site 06/12/18; 0941; 06/12/18 0941 by Bilateral; Rectum Gemini Mckeon, HUMAN RESOURCES PROJECT MANAGER CONSUMER RELATIONS SPECIALIST Wound 06/12/18; 0945; 06/12/18 0945 by Anterior, Bilateral; Arminda Randle, CINDY No Negative Pressure Wound 01/15/21; 0955; 01/15/21 0955 by Therapy JON; Knee; Left Jody Carlos RN Incision/Surgical Site 01/15/21; 0955; Left; 01/15/21 0955 by Knee Jody Carlos RN Peripheral IV 01/15/21; 0859; 20 G; 01/15/21 0859 by 01/17/21 1327 by Right, Dorsal; Hand Anita Randhawa, Karen Mcintosh RN Packing 01/15/21; 0950; 01/15/21 0950 by 01/19/21 1036 b y Anterior, Left; Knee; Jody Carlos RN Insarah franklin, Nurse (donald sponge x2); 3; 01/19/21; 1036 documented in this encounter Social History Tobacco Use Types Packs/Day Years Used Date Smoking Tobacco: Former Cigarettes 2 25 Quit : 08/04/2006 Smokeless Tobacco: Never Comments: 2004 Alcohol Use Standard Drinks/Week Comments Yes 0 (1 standard drink = 0.6 oz pure alcoho l) 4 BEERS A day Alcohol Habits Answer Date Recorded How often do you have a drink containing 4 or more times a w [place] 05/25/2021 alcohol? How many drinks containing alcohol [...] you attend bahai or Patient refused 2020 rastafari services? Do [...] / COVID-19? documented as of this encounter OR Notes Anesthesia Postprocedure Evaluation - Elvis Valle MD - 01/15/2021 10:56 AM CDT Patient: Virgil Marii Emmett Procedure(s): LEFT KNEE WOUND DEBRIDEMENT WITH SONIC 1 AND VERAFLO VAC PLACEMENT Diagnosis:Open knee wound, left, initial encounter [S81.002A] Diagnosis Additional Information: No value filed. Anesthesia Type: MAC Note: Disposition: Admission Postop Pain Control: Uneventful Sign Out: Well controlled pain PONV: No Neuro/Psych: Uneventful Sign Out: Acceptable/Baseline neuro status Airway/Respiratory: Uneventful Sign Out: Acceptable/Baseline resp. status CV/Hemodynamics: Uneventful Sign Out: Acceptable CV status; No obvious hypovolemia; No obvious fluid overload Other NRE: NONE DID A NON-ROUTINE EVENT OCCUR? No Last vitals: Vitals Value Taken Time BP 114/90 01/15/21 1050 Temp 36.2 ??C (97.2 ??F) 01/15/21 1040 Pulse 56 01/15/21 1055 Resp 17 01/15/21 1055 SpO2 94 % 01/15/21 1055 Vitals shown include unvalidated device data. Electronically Signed By: Elvis Valle MD January 15, 2021 10:56 AM Anesthesia Preprocedure Evaluation - Elvis Valle MD - 01/15/2021 8:45 AM CDT Anesthesia Pre-Procedure Evaluation Patient: Virgil Christine : 1955 Preoperative Diagnosis: Open knee wound, left, initial encounter [S81.002A] Procedure : Procedure(s): LEFT KNEE WOUND DEBRIDEMENT WITH SONIC 1 AND VERAFLO VAC PLACEMENT Past Medical History: Diagnosis Date ??? Antiplatelet or antithrombotic long-term use ??? Arthritis back, elbows ??? Coagulation disorder (H) ??? COPD (chronic obstructive pulmonary disease) (H) mild ??? DVT (deep venous thrombosis) (H) 2013 RIGHT LEG AFTER COLON SURGERY. ??? DVT [...] OR ??? COLECTOMY ??? COLOSTOMY pochoscopy ??? EXAM UNDER ANESTHESIA RECTUM N/A 06/12/2018 [...] Location: [facility] ??? RESECTION ABDOMINAL PERINEAL No Known Allergies Social History Tobacco Use ??? Smoking status: Former Smoker Packs/day: 2.00 Years: 25.00 Pack years: 50.00 Types: Cigarettes Quit date: 08/04/2006 Years since quittin.4 ??? Smokeless tobacco: Never Used ??? Tobacco comment: 2005 Substance Use Topics ??? Alcohol use: Yes Comment: 4 BEERS A day Wt Readings from Last 1 Encounters: 01/15/21 117 kg (258 lb) Anesthesia Evaluation Pt has had prior anesthetic. No history of anesthetic complications ROS/MED HX ENT/Pulmonary: (+) KENJI risk factors, asthma COPD, (-) sleep apnea Neurologic: - neg neurologic ROS Cardiovascular: (+) hypertension-----Taking blood thinners METS/Exercise Tolerance: Hematologic: Comments: factor V deficiency, history of bilateral extremity venous thromboses, [place] filter placement. Anticardiolipin antibody positive. Varicose veins of right lower extremity with both ulcer of ankle and inflammation (CODE) (H) (+) History of blood clots, pt is anticoagulated, Musculoskeletal: Comment: Status post unicompartmental knee replacement, right. GI/Hepatic: Comment: History of colectomy for ulcerative colitis.Anal fistula . Anal stenosis. Renal/Genitourinary: - neg Renal ROS Endo: (+) Obesity, Psychiatric/Substance Use: Infectious Disease: - neg infectious disease ROS Malignancy: Other: Physical Exam Airway airway exam normal Respiratory Devices and Support Dental no notable dental history Cardiovascular cardiovascular exam normal Pulmonary pulmonary exam normal OUTSIDE LABS: CBC: Lab Results Component Value Date WBC 8.4 12/25/2020 WBC 5.5 10/06/2020 HGB 13.5 12/25/2020 HGB 13.9 10/06/2020 HCT 41.2 12/25/2020 HCT 42.1 10/06/2020 PLT 216 12/25/2020 PLT 181 10/06/2020 BMP: Lab Results Component Value Date NA 137 12/25/2020 NA 139 10/06/2020 POTASSIUM 3.5 12/25/2020 POTASSIUM 3.4 10/06/2020 CHLORIDE 105 12/25/2020 CHLORIDE 106 10/06/2020 CO2 27 12/25/2020 CO2 29 10/06/2020 BUN 17 12/25/2020 BUN 21 10/06/2020 CR 0.89 12/25/2020 CR 0.97 10/06/2020 GLC 98 12/25/2020 GLC 101 (H) 10/06/2020 COAGS: Lab Results Component Value Date PTT 40 (H) 01/05/2009 INR 1.07 01/15/2021 POC: Lab Results Component Value Date BGM 112 (H) 08/20/2013 HEPATIC: Lab Results Component Value Date ALBUMIN 3.5 05/26/2020 PROTTOTAL 7.5 05/26/2020 ALT 34 08/04/2020 AST 25 08/04/2020 ALKPHOS 101 05/26/2020 BILITOTAL 0.9 05/26/2020 OTHER: Lab Results Component Value Date LACT 1.6 12/25/2020 A1C 5.8 05/25/2017 DERREK 9.0 12/25/2020 TSH 2.42 05/26/2020 T4 1.06 04/15/2007 CRP 24.9 (H) 12/25/2020 SED 19 12/25/2020 Anesthesia Plan ASA Status: 3 Anesthesia Type: MAC. - Reason for MAC: straight local not clinically adequate Consents Anesthesia Plan(s) and associated risks, benefits, and realistic alternatives discussed. Questions answered and patient/patient intake representative(s) expressed understanding. - Discussed with: Patient Postoperative Care Pain management: IV analgesics, Multi-modal analgesia. PONV prophylaxis: Ondansetron (or other 5HT-3) Comments: Elvis Valle MD documented in this encounter Miscellaneous Notes Anesthesia Care Transfer Note - May Monte APRN CRNA - 01/15/2021 10:18 AM CDT Patient: Virgil Christine Procedure(s): LEFT KNEE WOUND DEBRIDEMENT WITH SONIC 1 AND VERAFLO VAC PLACEMENT Diagnosis: Open knee wound, left, initial encounter [S81.002A] Diagnosis Additional Information: No value filed. Anesthesia Type: MAC Note: Oropharynx: oropharynx clear of all foreign objects and spontaneously breathing Level of Consciousness: awake Oxygen Supplementation: room air Independent Airway: airway patency satisfactory and stable Dentition: dentition unchanged Vital Signs Stable: post-procedure vital signs reviewed and stable Report to RN Given: handoff report given Patient transferred to: PACU Handoff Report: Identifed the Patient, Identified the Reponsible Provider, Reviewed the pertinent medical history, Discussed the surgical course, Reviewed Intra-OP anesthesia mangement and issues during anesthesia, Set expectations for post-procedure period and Allowed opportunity for questions and acknowledgement of understanding Vitals: Vitals Value Taken Time BP 127/80 01/15/21 1014 Temp Pulse 73 01/15/21 1017 Resp 20 01/15/21 1017 SpO2 96 % 01/15/21 1017 Vitals shown include unvalidated device data. Electronically Signed By: May Monte APRN CRNA January 15, 2021 10:18 AM documented in this encounter Plan of Treatment Upcoming Encounters Date Type Specialty Care Team Description 05/20/2022 Lab Lab documented as of this encounter Visit Diagnoses Not on filedocumented in this encounter Administered Medications Inactive Administered Medications - up to 3 most recent administrations Medication Order MAR Action Action Date Dose Rate Site ceFAZolin (ANCEF) intermittent Given 01/15/2021 9:20 AM CDT 2 g infusion 2 g in 100 mL dextrose PRE-MIX Routine, 2 g, Intravenous, PRE-OP/PRE-PROCEDURE, Starting on Fri01/15/21 at 0736, For 1 dose, Give first dose within 1 hour PRIOR to incision. If patient weight is greater than or equal to 120 kg increase dose to 3 g., Indications: Perioperative Pharmacoprophylaxis, Pre-procedure fentaNYL (PF) (SUBLIMAZE) injection Given 01/15/2021 10:07 AM CDT 50 mcg Intravenous, PRN, Administer over 3-5 Minutes, Starting on Fri01/15/21 at 0914, Anesthesia Intra-op Given 01/15/2021 9:14 AM CDT 50 mcg lactated ringers infusion Rate/Dose Change 01/15/2021 10:09 AM CDT 100 mL/hr at 25 mL/hr, Intravenous, CONTINUOUS, IF patient NOT on dialysis., Pre-procedure, Starting on Fri01/15/21 at 0800, Until Fri01/15/21 at 1013 Rate/Dose Change 01/15/2021 9:54 AM CDT 600 mL/hr New Bag 01/15/2021 8:59 AM CDT 25 mL/hr lidocaine 2% injection (MDV) Given 01/15/2021 9:13 AM CDT 80 mg Other, PRN, Starting on Fri01/15/21 at 0913, Anesthesia Intra-op midazolam (VERSED) injection Given 01/15/2021 9:07 AM CDT 2 mg Intravenous, Administer over 2 Minutes, PRN, Starting on Fri01/15/21 at 0907, Anesthesia Intra-op ondansetron (ZOFRAN) injection Given 01/15/2021 9:36 AM CDT 4 mg Intravenous, PRN, Administer over 2-5 Minutes, Starting on Fri01/15/21 at 0936, Anesthesia Intra-op phenylephrine (TWYLA-SYNEPHRINE) injection Bolus 01/15/2021 10:00 AM CDT 100 mcg Intravenous, CONTINUOUS PRN, Starting on Fri01/15/21 at 0935, Anesthesia Intra-op Bolus 01/15/2021 9:53 AM CDT 100 mcg New Bag 01/15/2021 9:35 AM CDT 100 mcg propofol (DIPRIVAN) injection 10 mg/mL v ial Given 01/15/2021 9:14 AM CDT 30 mg Intravenous, PRN, Starting on Fri01/15/21 at 0914, Anesthesia Intra-op Given 01/15/2021 9:12 AM CDT 30 mg propofol (DIPRIVAN) Rate/Dose Change 01/15/2021 9:51 100 mcg/kg/min 7 0.2 mL/hr injection 10 mg/mL vial AM CDT Intravenous, CONTINUOUS PRN, Starting on Fri01/15/21 at 0915, Anesthesia Intra-op Rate/Dose Change 01/15/2021 9:44 AM CDT 125 mcg/kg/min 87.75 mL/hr Rate/Dose Change 01/15/2021 9:26 AM CDT 150 mcg/kg/min 105.3 mL/hr documented in this encounter Care Teams Hospice Community Liaison Relationship Specialty Start Date End Date Froylan Louise MD PCP - General Family Practice 02/22/14 Froylan Louise MD Assigned PCP 03/13/14 2 Esthela Corea RN Personal Advocate & Liaison Family Medicine 10/16 (PAL) documented as of this encounter
--- OUTSIDE RECORDS SUMMARY | 2022-05-15 22:20 | XMS_ITS | Encounter Summary ---
:1955 Author Organization [facility] Address [address] [place] [address] Care Team Providers Name Role Phone Froylan Louise MD Primary Care Provider Unavailable Froylan Louise MD Unavailable Unavailable Esthela Corea RN Unavailable Unavailable Reason for Visit Reason Onset Date Comments Outreach 01/22/2021 Encounter Details Date Type Department Care Team Description 01/22/2021 Telephone [facility] Froylan Louise Ra, MD Outreach [address] [address] Social History Tobacco Use [...] containing 4 or more times a w [place] 05/25/2021 alcohol? How many drinks containing alcohol [...] you attend episcopal or Patient refused 2020 hoahaoism services? Do [...] Telephone Encounter - Esthela Corea RN - 01/22/2021 10:57 AM CDT Hospital/TCU/ED for chronic condition Discharge Protocol Hi, my name is Esthela Corea RN, a registered nurse, and I am calling from [facility]. I am calling to follow up and see how things are going for you after your recent emergency visit/hospital/TCU stay. Tell me how you are doing now that you are home? Doing well feels like a million bucks Taking several vitamins and a Boni wound healing drink 2 X day. Discharge Instructions Let's review your discharge instructions. What is/are the follow-up recommendations? Pt. Response: f/u with wound clinic Has an appointment with your primary care provider been scheduled? Yes. (confirm) When you see the provider, I would recommend that you bring your medications with you. Medications Tell me what changed about your medicines when you discharged? Changes to chronic meds? 0-1 What questions do you have about your medications? None New diagnoses of heart failure, COPD, diabetes, or DC? No On warfarin: Were you given any recommendations for follow-up with the anticoagulation clinic? Yes - Anticoagulation clinic appointment is already scheduled at appropriate interval Post Discharge Medication Reconciliation Status: discharge medications reconciled, continue medications without change. Was MTM referral placed (*Make sure to put transitions as reason for referral)? No Call Summary What questions or concerns do you have about your recent visit and your follow- up care? none If you have questions or things don't continue to improve, we encourage you contact us through the main clinic number (give number). Even if the clinic is not open, triage nurses are available 13/01 tohelp you. We would like you to know that our clinic has extended hours (provide information). We also have urgent care (provide details on closest location and hours/contact info) Thank you for your time and take care! Esthela Corea RN Telephone Encounter - Esthela Corea RN - 01/22/2021 10:34 AM CDT ED / Discharge Outreach Protocol Patient Contact Attempt # 1 Was call answered? No. Left message on voicemail with information to call me back. Esthela Corea RN documented in this encounter Plan of Treatment Upcoming Encounters Date Type Specialty Care Team Description 05/20/2022 Lab Lab documented as of this encounter Visit Diagnoses Not on filedocumented in this encounter Care Teams Indexer Relationship Specialty Start Date End Date Froylan Louise MD PCP - General Family Practice 02/22/14 Froylan Louise MD Assigned PCP 03/13/14 2 Esthela Corea, RN Personal Advocate & Liaison Family Medicine 10/16 (PAL) documented as of this encounter
--- OUTSIDE RECORDS SUMMARY | 2022-05-15 22:20 | XMS_ITS | Encounter Summary ---
:1955 Author Organization [place] Address Formerly [facility] [place] [address] Care Team Providers Name Role Phone Froylan [...] 20 SQ CM OR LESS [address], [address] LEFT KNEE WOUND DEBRIDEMENT WITH SONIC 1 AND LINDSEY AFLO VAC PLACEMENT LL2 [place] [address] Phone: Referral ID Status Reason Start Date Expiration Date Visits Requ ested Visits Authorized [id number] 1 1 Encounter Details Date Type Department Care Team Description 01/15/2021 Surgery [facility] Uriel Nuñez MD LEFT KNEE WOUND [place] [facility] [address] DEBRID EMENT WITH SONIC Services LOUIE 586 1 AND VERAFLO VAC [address], [address] [place] [address] PLACEMENT [address]2 [place] [address] [phone] Surgery Details Date/Time Status Location OR Service Patient Case Class Case Tr auma Class Type Case? 01/15/21 8:40 Posted SH OR OR M 21 General Surgery AM Admit Panel 1 Procedure LRB Anes Op Region Wound Class Commen ts LEFT KNEE WOUND DEBRIDEMENT WITH Left MAC Leg II- Clean Contaminated SONIC 1 AND VERAFLO VAC PLACEMENT Surgeon Surgeon Role Service Panel Uriel Nuñez MD Primary General 1 documented in this encounter Social History Tobacco [...] containing 4 or more times a w naknek 05/25/2021 alcohol? How many drinks containing alcohol [...] or relatives? How often do you attend zoroastrianism or Patient refused 2020 church services? Do you belong to any clubs or Yes 05/25/2021 organizations such as zoroastrianism groups, unions, fraternal or athletic groups, or [...] Sign Reading Time Taken Comments Blood Pressure 127/80 01/15/2021 10:10 AM CDT Pulse 62 01/15/2021 10:10 AM CDT Temperature 36.7 ??C (98 ??F) 01/15/2021 8:12 AM CDT Respiratory Rate 15 01/15/2021 10:10 AM CDT Oxygen Saturation 98% 01/15/2021 8:12 AM CDT Inhaled Oxygen Concentration - - [...] Admitting Physician: Uriel Nuñez MD Discharging Service: [facility] General Surgery Primary Provider: Froylan Louise Principle Diagnosis: Open knee wound, left, initial encounter [S81.002A] Secondary Diagnosis: Same Procedures: 01/15/21 - Excisional debridement of left knee wound with creation of medial thigh counterincision for debridement with significant undermining. Application of VAC vera flow - Dr. Uriel Nuñez Brief HPI: Virgil Christine is a 65 year old year-old male who presented to [facility] for elective wound debridement as stated above. [...] Take 2 g by mouth every morning Qxxdevkoebl-Llttzdseb-Ywthhwbmve (TRELEGY ELLIPTA) 100-62.5-25 MCG/INH oral inhaler Inhale [...] Lichen planus vitamin D3 (CHOLECALCIFEROL) 250 mcg (92543 units) capsule Take 1 capsule by mouth [...] proximal vein of both lower extremities (H); watermelon inspector current use of anticoagulants with INR [...] at (location with clinic name or city) [facility], on 01/23/21 for wound vac change. No follow up labs or test are needed. Follow up with [facility] Coumadin clinic next week After Care [...] that dressing leaks or machine malfunctions. Consult [facility] nurse. Follow-up for wound care in Dr. [...] proximal vein of both lower extremities (H), [facility] current use of anticoagulants with INR goal [...] 1000 MCG tablet by mouth every morning Lpegetbgdin-Lnoedppad-Zbguh Inhale 1 puff 0 02/05/2021 terol (TRELEGY [...] 11/30/2021 (CHOLECALCIFEROL) 250 mcg by mouth every (95102 units) capsule morning warfarin ANTICOAGULANT TAKE 5MG [...] by 8am. WOC will sign off. Robin Reed MD - 01/19/2021 6:43 AM CDT [facility] VASCULAR SURGERY Progress Note Admission Date: 01/15/2021 [...] 0543 01/16/21 0622 INR 1.21* 1.13 1.03 Robin [facility] General Surgery Resident - PGY4 Associated attestation - Uriel Nuñez MD - 01/22/2021 7:32 AM CDT Physician Attestation I agree with the information in this note. Jessica Muñoz RN - 01/18/2021 8:18 AM CDT Phone call received from [facility] [place]. 3M KCI wound vac for home beingbrought over to patient room via volunteer services. Aga has left cannisters and one dressing in the box and Aga has the rest of the dressings as she will be doing the dressings in the clinic. Robin Hodge MD - 01/18/2021 6:35 AM CDT [facility] VASCULAR SURGERY Progress Note Admission Date: 01/15/2021 [...] Hodge MD - 01/17/2021 12:40 PM CDT [facility] VASCULAR SURGERY Progress Note Admission Date: 01/15/2021 [...] 01/15/21 0751 INR 1.13 1.03 1.07 Robin [facility] General Surgery Resident - [id number] Associated attestation - Uriel Nuñez MD - 01/17/2021 1:03 PM CDT Physician Attestation I agree with the information in this note. Jessica Muñoz RN - 01/16/2021 1:55 PM CDT Call received from Aga at the [facility] [place]. Aga has ordered the 3M KCI wound [...] therapy. CPAP order placed per home parameters. SERVICE EMPLOYEE medicationsreviewed, discontinued duplicate hydrochlorothiazide order. At this time will defer all postoperative cares to primary team. Hospitalist will sign-off, call with concerns. Nicolas Black PA-C 01/15/2021, 12:11 PM Pager: [phone] Anita Randhawa RN - 01/15/2021 9:08 AM CDT Pt rates back pain #9 and (L) knee pain #3. Given 1000mg of Tyl preop. Face red (sunburn) [place] Benavides - 01/12/2021 12:24 PM CDT SERVICE EMPLOYEE medications updated by Medication Scribe prior to [...] every morning at AM Yes Reported, Patient Ysjlllhmugi-Nypxnawja-Foxfgxfcdd (TRELEGY ELLIPTA) 100-62.5-25 MCG/INH oral inhaler Inhale [...] Louise MD vitamin D3 (CHOLECALCIFEROL) 250 mcg (66205 units) capsule Take 1 capsule by mouth [...] thana month Froylan Louise MD Gerard Burgess, [facility] Medication [facility] documented in this encounter H&P Notes Elvis Valle MD - 01/15/2021 8:40 AM CDT I have reviewed the surgical (or preoperative) H&P that is linked to this encounter, and examined the patient. There are no significant changes Source Note - So Dodd MD - 01/12/2021 1:00 PM CDT [facility] [id number] [place] [id number] Primary Provider: Froylan Louise PREOPERATIVE EVALUATION: Today's date: 01/12/2021 Virgil Christine is a 65 year old male who presents for a preoperative evaluation. Today INR -1.6 Surgical Information: Surgery/Procedure: L Knee wound debridement for Left knee wound Surgery Location: [facility] Surgeon: Dr. Nuñez Surgery Date: 01/15/21 [...] vein thrombosis s/p bindu filter placement . [facility] current use of anticoagulant therapy - INR [...] Problem List Diagnosis Date Noted ??? Health Assisted 07/16/2011 Priority: High EMERGENCY CARE PLAN Presenting Problem Signs and Symptoms Treatment Plan Questions or conerns during clinic hours I will call the clinic directly Questions or conerns outside clinic hours I will call the 24 hour nurse line at [phone] Patient needs to schedule an appointment I will call the 24 hour scheduling team at [phone] orinic directly Same day treatment I will call the clinic first, nurse line if after hours, urgent care and expresscare if needed DX V65.8 REPLACED WITH [id number] HEALTH RESIDENTIAL (09/28/2012) ??? Morbid obesity (H) 01/12/2021 Priority: [...] 1,000 mcg by mouth every morning ??? Dqwmbthahcb-Pchaoltsx-Lfougmrrbd (TRELEGY ELLIPTA) 100-62.5-25 MCG/INH oral inhaler Inhale 1 puff into the lungs every morning ??? hydrochlorothiazide (HYDRODIURIL) 25 MG tablet Take 25 mg by mouth every morning ??? terazosin (HYTRIN) 2 MG capsule Take 2 mg by mouth At Bedtime ??? vitamin D3 (CHOLECALCIFEROL) 250 mcg (80385 units) capsule Take 1 capsule by mouth [...] from the original note were not included. [facility] Nurse Inpatient Wound Assessment Reason for [...] to notify the Provider(s) and re-consult the [facility] Nurse if wound(s) deteriorates or new skin [...] and the entire wound with pocket/undermining is x 6cm tapering toward anterior wound Wound [...] January 15, 2021 SURGEON: Uriel Nuñez MD MEDICAL MANAGER: None. PREOPERATIVE DIAGNOSIS: 1. Chronic left knee [...] to recovery room Uriel Nuñez MD Pager [phone] Pharmacy-Anticoagulation Service - Shanique Waters [facility] - 01/15/2021 12:11 PM CDT Clinical Pharmacy - Warfarin Dosing Consult Pharmacy has been consulted to manage this patient???s warfarin therapy. Indication: DVT/ PE Treatment Therapy Goal: INR 2-3 Warfarin Prior to Admission: Yes Warfarin SERVICE EMPLOYEE Regimen: 5 mg on Wednesdays and 7.5 [...] Nuñez MD - 01/15/2021 10:28 AM CDT [facility] Brief Operative Note Pre-operative diagnosis: Open knee [...] Results (ABNORMAL) INR (01/19/2021 7:27 AM CDT) P athologist Signature INR 1.25 (H) 0.85 - [...] Address City/State/ZIP Code [place] [address] Care Lab [address] 1st floor, Room 20B (ABNORMAL) INR (01/18/2021 6:33 AM CDT) P athologist Signature INR 1.21 (H) 0.85 - [...] Address City/State/ZIP Code Phon e Number LABORATORY [facility], [place] [address] Care Lab [address] 1[address] floor, Room [address]B Glucose by meter (01/17/2021 6:06 AM CDT) athologist Signature GLUCOSE BY 95 70 - 99 01/17/2021 LABORATORY METER POCT mg/dL 6:12 AM CDT POC Specimen Anatomical Collection Method Collection Time Receive d Time (Source) Location / / Volume Laterality Blood BLOOD SPECIMEN / 01/17/2021 6:06 AM 01/17 6:12 Unknown CDT AM CDT Uriel Nuñez MD LAB - BEAKER POCT Performing Organization Address City/[facility]/ZIP Code Phon e Number LABORATORY POC [facility], [place] [address] Care Lab [address] 1st [...] Address City/State/ZIP Code Phon e Number LABORATORY [facility], [place] [address] Care Lab [address] 1st [...] 01/16 6:29 Unknown CDT AM CDT Uriel Nuñez MD LAB - BEAKER POCT Performing Organization Address City/[facility]/ZIP Code Phon e Number LABORATORY POC [facility], [place] [address] Care Lab [address] 1[address] floor, Room 20B INR (01/16/2021 6:22 AM CDT) athologist Signature INR 1.03 0.85 - 1.15 [...] LAB - BLOOD ORDERABLES Performing Organization Address City/[facility]/ZIP Code Phon e Number LABORATORY [facility], [place] [address] Care Lab [address] 1st [...] Address City/State/ZIP Code Phon e Number LABORATORY [facility] [place] [address] Care Lab [address] floor, Room [address]B documented in this encounter Visit Diagnoses Diagnosis Open knee wound, left, initial encounter - Primary Open knee wound, left, initial encounter Open knee wound, left, initial encounter documented in this encounter Admitting Diagnoses Diagnosis Open knee wound, left, initial encounter documented in this encounter Administered Medications Inactive Administered Medications - up to 3 most recent administrations Medication Order MAR Action Action Date Dose Rate Site acetaminophen (TYLENOL) tablet 650 Given 01/18/2021 9:18 PM CDT 650 mg mg 650 mg, Oral, EVERY 4 HOURS PRN, other, For optimal non-opioid multimodal pain management to improve pain control., Starting on Herlinda 01/18/21 at 0000, May give first dose 4 hours after last scheduled dose of acetaminophen (TYLENOL). Maximum acetaminophen dose from all sources = 75 mg/kg/day not to exceed 4 grams/day. albuterol (PROAIR HFA/PROVENTIL HFA/VENTOLIN Given 2:42 PM [...] Given 01/18/2021 8:37 AM CDT 1 tablet Guoqawqzvxq-Erbatmhvz-Cdrllroiwb (TRELEGY Given 01/19/2021 9:09 AM CDT 1 puff ELLIPTA) 100-62.5-25 MCG/INH oral inhaler 1 puff 1 puff, Inhalation, EVERY MORNING, First dose on Fri01/15/21 at 1130, *Do not use more frequently than once daily.* Rinse mouth after use. Use patient's own inhaler. Given 01/18/2021 8:39 AM CDT 1 puff Given 01/17/2021 10:34 AM CDT 1 puff HYDROmorphone (DILAUDID) injection 0.2 m g Given [...] Given 01/15/2021 9:16 PM CDT 0.4 mg Boni PACK 1 packet Given 01/19/2021 9:11 AM CDT 1 packet 1 packet, Oral, 2 TIMES DAILY, First dose on Fri01/15/21 at 1130 Given 01/18/2021 8:17 PM CDT 1 packet Given 01/18/2021 9:53 AM CDT 1 packet lactated ringers infusion New Bag 01/15/2021 11:23 [...] Given 01/18/2021 8:38 AM CDT 1 capsule lidocaine-EPINEPHrine 1 Given 01/15/2021 9:22 AM 20 mLs Operative %-1:[id number] injection CDT Site/Surgical S ite PRN, Starting on Fri01/15/21 at 0922, Intra-procedure lisinopril-hydrochlorothiazide (ZESTORETIC) Given 12/23 9:08 AM CDT [...] swallow with saliva. Liquid not required . prochlorperazine (COMPAZINE) injection 1 0 mg 10 [...] Given 01/18/2021 12:17 PM CDT 3 mLs sodium chloride 0.9% Given 01/15/2021 9:22 AM 1,000 mLs Operative (bottle) irrigation CDT Site/Surgical S ite PRN, Starting on Fri01/15/21 at 0922, Intra-procedure terazosin (HYTRIN) capsule 2 mg Given 01/18/2021 [...] analgesic side effects. Hold while on IV SMALL BRAKE FORM OPERATOR or with regular IV opioid dosing. Given [...] 1 tablet vitamin D3 (CHOLECALCIFEROL) 250 mcg (38222 Given 12/23 9:10 AM CDT 250 mcg units) capsule 250 mcg 250 mcg, Oral, EVERY MORNING, First dose on Fri01/16/21 at 0900, Patient supplied medication Note: 250 mcg = 10,000 units Given 01/18/2021 8:38 AM CDT 250 mcg Given 01/17/2021 10:35 AM CDT 250 mcg Warfarin Therapy Reminder (Check START DATE - [...] on Fri01/15/21 at 1145, Formulary sub for SERVICE EMPLOYEE Ambien CR 6.25 mg at bedtime prn [...] Provider: JARED PEÑA)1155 (New Bag - Provider: Karne Ellis RN)1853 (New Bag - Provider: Karen Ellis RN) 0407 (New Bag - Provider: Arminda Laureano RN)1217 (New Bag - Provider: Hola Friedman RN)2011 (New Bag - Provider: Howard Hubbard RN) 0439 (New Bag - Provider: Howard Hubbard RN)1130 (Canceled Entry - Provider: Orders Generic Provider - Comment: Automatically canceled at discontinue of medication order) Routine, 900 mg, Intravenous, EVERY 8 HO URS, First dose on Fri01/16/21 at 1130, Indications: Skin and Soft Tissue Infection cyanocobalamin (VITAMIN B-12) tablet 1,000 mcg 1035 (G iven - Provider: Karen Ellis RN) 0837 (Given - Provider: Hola Friedman RN) 0909 (G iven - Provider: Chula Quintero RN - Comment: pt's own med) 1,000 mcg, Oral, EVERY MORNING, First do se on Fri01/15/21 at 1130, Patient supplied medication Emily-C TABS 1 tablet 1033 (Given - Provider: Elba Ellis RN)2109 (Given - Provider: Karen Ellis RN) 0837 (Given - Provider: Hola carreon RN)2014 (Given - Provider: Howard Hubbard RN) 0909 (Given - Provider: Chula Quintero RN - Comment: pt's own med) 1 tablet, Oral, 2 TIMES DAILY, First dos e on Fri01/15/21 at 2100, Patient supplied medication Zvsviuawiwx-Fiuamytyp-Fyuziehywa (TRELEG Y ELLIPTA) 100-62.5-25 MCG/INH oral inhaler 1 puff 1034 (Given - Provider: Karne Ellis RN) 0839 (Gi gavi - Provider: Hola Friedman RN) 0909 (Given - Provider: Chula Quintero [...] packet 1023 (Given - Provider: Elba Ellis RN)2218 (Not Given - Provider: Karen Ellis RN - Reason: Patient/family refused) 0953 (Given - Provider: Hola Friedman RN)2016 (Given - Provider: Howard Hubbard, CINDY) 0911 (Given - Provider: Chula Quintero, CINDY) 1 packet, Oral, 2 TIMES DAILY, First dose on Fri01/15/21 at 1130 lactobacillus rhamnosus (GG) (CULTURELL) capsule 1 cap maggie 1022 (Given - Provider: Karen Ellis RN)2108 (Given - Provider: Karen Ellis RN) 0838 (Given - Provider: Hola Friedman RN)2012 (Given - Provider: Howard Hubbard, CINDY) 0909 (Given - Provider: Chula Quintero [...] Karen Ellis RN - Reason: Patient/family refused) 08 (Not Given - Provider: Hola Friedman RN [...] Destiny Corrales)1217 (Given - Provider: Hola Friedman RN)2016 (Given - Provider: Howard Hubbard RN) 0439 [...] 2 mg 2108 (Given - Provider: Elba Ellis, CINDY) 2116 (Given - Provider: Howard Hubbard, CINDY) 2 mg, Oral, AT BEDTIME, First dose [...] supplied medication vitamin D3 (CHOLECALCIFEROL) 250 mcg (66814 units) cap maggie 250 mcg 1035 (Given [...] 10 mg, Oral, ONCE AT 6PM, On Herlinda 01/18/21 at 1800, For 1 dose, Pharmacist Dose [...] mg 21 18 (Given - Provider: Howard Hubbard RN) 650 mg, Oral, EVERY 4 HOURS [...] 1) 0653 (See Alternative - Provider: Howard Hubbard RN) 0.2 mg, Intravenous, EVERY 2 HOURS PRN, [...] used when administering multiple Central Nervous System (CATERING SOUS CHEF) depressing meds within a short time frame. [...] s breezy effects. Hold while on IV SMALL BRAKE FORM OPERATOR or with regular IV opioid dosi ng. [...] CINDY) 2012 (Given - Provider: Howard Hubbard, RN) 5 mg, Oral, AT BEDTIME PRN, sleep, Start ing on Fri01/15/21 at 1145, Formulary sub for SERVICE EMPLOYEE Ambien CR 6.25 mg at bedtime prn [...] after each naloxone dose. Consider transfer to [facility] if patient respiratory parameters hav e not [...] provider.
documented in this encounter Care Teams Vegetable Grower Relationship Specialty Start Date End Date Froylan Louise MD PCP - General Family Practice 02/22/14 Froylan Louise MD Assigned PCP 03/13/14 2 Esthela Corea, RN Personal Advocate & Liaison Family Medicine 10/16 (PAL) documented as of this encounter
--- OUTSIDE RECORDS SUMMARY | 2022-05-15 22:20 | XMS_ITS | Encounter Summary ---
:1955 Author Organization [place] Address [address] [place] [address] Care Team Providers Name Role Phone Froylan Louise MD Primary Care Provider Unavailable Froylan Louise MD Unavailable Unavailable Esthela Corea RN Unavailable Unavailable Encounter Details Date Type Department Care Team Description 01/19/2021 Telephone [facility] Froylan Louise Ra, MD [place] [address] [place] [address] Social History Tobacco Use [...] you attend samaritan or Patient refused 2020 catholic services? Do [...] this encounter Miscellaneous Notes Telephone Encounter - Stevo Thorne RN - 01/19/2021 11:34 AM CDT Spoke with patient (also see 01/19/21 ADT) and reviewed dosing and recheck information. Was taken offlovenox by MD Nuñez for possible bleeding wound. Will recheck INR Friday01/22/21. Rosmery Thorne RN [facility] [place] [facility] [place] Telephone Encounter - Arabella Murrieta RN - 01/19/2021 11:22 AM CDT Patient left VM on [facility] home care line asking for a return call from [facility]. Arabella Mcnair RN, BSN, PHN Anticoagulation Nurse [phone] documented in this encounter Plan of Treatment Upcoming Encounters Date Type Specialty Care Team Description 05/20/2022 Lab Lab documented as of this encounter Visit Diagnoses Diagnosis Chronic deep vein thrombosis (DVT) of lo wer extremity, unspecified laterality, unspecified vein (H) - Primary detention current use of anticoagulant t herapy documented in this encounter Care Teams Fish And Wildlife Technician Relationship Specialty Start Date End Date Froylan Louise MD PCP - General Family Practice 02/22/14 Froylan Louise MD Assigned PCP 03/13/14 2 Esthela Corea RN Personal Advocate & Liaison Family Medicine 10/16 (PAL) documented as of this encounter
--- OUTSIDE RECORDS SUMMARY | 2022-05-15 22:20 | XMS_ITS | Encounter Summary ---
:1955 Author Organization [place] Address [address] [place] [address] Care Team Providers Name Role Phone Froylan Louise MD Primary Care Provider Unavailable Froylan Louise MD Unavailable Unavailable Esthela Corea RN Unavailable Unavailable Encounter Details Date Type Department Care Team Description 01/22/2021 Travel Social History Tobacco Use Types Packs/Day Years Used Date Smoking Tobacco: Former Cigarettes 2 25 Quit : 08/04/2006 Smokeless Tobacco: Never Comments: 2004 Alcohol Use Standard Drinks/Week Comments Yes 0 (1 standard drink = 0.6 oz pure alcoho l) 4 BEERS A day Alcohol Habits Answer Date Recorded How often do you have a drink containing 4 or more times a w afognak 05/25/2021 alcohol? How many drinks containing alcohol [...] you attend zoroastrian or Patient refused 2020 alevism services? Do you belong to any clubs [...] on filedocumented in this encounter Care Teams Gas Engine Performance Engineer Relationship Specialty Start Date End Date Froylan Louise MD PCP - General Family Practice 02/22/14 Froylan Louise MD Assigned PCP 03/13/14 2 Esthela Corea, RN Personal Advocate & Liaison Family Medicine 10/16 (PAL) documented as of this encounter
--- OUTSIDE RECORDS SUMMARY | 2022-05-15 22:20 | XMS_ITS | Encounter Summary ---
:1955 Author Organization [place] Address [address] [place] [address] Care Team Providers Name Role Phone Froylan Louise MD Primary Care Provider Unavailable Froylan Louise MD Unavailable Unavailable Esthela Corea RN Unavailable Unavailable Reason for Visit Reason Onset Date Comments Anticoagulation 01/19/2021 Encounter Details Date Type Department Care Team Description 01/19/2021 Telephone [facility] Froylan Louise Ra, MD [address] [address] Social History Tobacco Use [...] containing 4 or more times a w [place] 05/25/2021 alcohol? How many drinks containing alcohol [...] you attend gnosticism or Patient refused 2020 baptist services? Do [...] Encounter - Stevo Thorne RN - 01/19/2021 10:08 AM CDT ANTICOAGULATION MANAGEMENT: Discharge Review Virgil Christine chart reviewed for anticoagulation continuity of care Hospital Admission on 01/15/21 for wound debridement. Discharge disposition: Home Results: Recent labs: (last 7 days) 01/12/21 1241 01/15/21 0751 01/16/21 0622 01/17/21 0543 01/18/21 0633 01/19/21 0727 INR 1.6* 1.07 1.03 1.13 1.21* 1.25* Anticoagulation inpatient management: home regimen continued Anticoagulation discharge instructions: Warfarin dosing: home regimen continued Bridging: Was bridging on enoxaparin but discontinued IP - increase warfarin dosing to 7.5 mg alternating with 5 mg every other day per his standard regime, not on Lovenox due to risk of bleeding and recently debrided wound. INR goal change: No Medication changes affecting anticoagulation: Yes: augmentin Additional factors affecting anticoagulation: Yes: ongoing wound Plan No adjustment to anticoagulation plan needed Patient not contacted Anticoagulation Calendar updated Stevo Thorne RN documented in this encounter Plan of Treatment Upcoming Encounters Date Type Specialty Care Team Description 05/20/2022 Lab Lab documented as of this encounter Visit Diagnoses Diagnosis Chronic deep vein thrombosis (DVT) of lo wer extremity, unspecified laterality, unspecified vein (H) - Primary residential current use of anticoagulant t herapy documented in this encounter Care Teams Car Distributor Relationship Specialty Start Date End Date Froylan Louise MD PCP - General Family Practice 02/22/14 Froylan Louise MD Assigned PCP 03/13/14 2 Esthela Corea RN Personal Advocate & Liaison Family Medicine 10/16 (PAL) documented as of this encounter
--- OUTSIDE RECORDS SUMMARY | 2022-05-15 22:20 | XMS_ITS | Encounter Summary ---
:1955 Author Organization [place] Address [address] [place] [address] Care Team Providers Name Role Phone Froylan Louise MD Primary Care Provider Unavailable Froylan Louise MD Unavailable Unavailable Esthela Corea RN Unavailable Unavailable Reason for Referral Care Coordination (Routine) - Closed Specialty Diagnoses / Procedures Referred By Contact Refer red To Contact Diagnoses [place] [address] [place] [address] Referral ID Status Reason Start Date Expiration Date Visits Requ ested Visits Authorized [id number] Closed 01/22/2021 01/22/2022 1 1 Encounter Details Date Type Department Care Team Description 01/22/2021 Orders Only [facility] Care Froylan Louise, Other specified Coordination counseling [address] [place] [address] Social History Tobacco Use Types Packs/Day Years Used Date Smoking Tobacco: Former Cigarettes 2 25 Quit : 08/04/2006 Smokeless Tobacco: Never Comments: 2004 Alcohol Use Standard Drinks/Week Comments Yes 0 (1 standard drink = 0.6 oz pure alcoho l) 4 BEERS A day Alcohol Habits Answer Date Recorded How often do you have a drink containing 4 or more times a w [place] 05/25/2021 alcohol? How many drinks containing alcohol [...] you attend jain or Patient refused 2020 mandaen services? Do [...] Care Team Description 05/20/2022 Lab Lab Scheduled Referrals Name Type Priority Associated Diagnoses Order [facility] Discharge Referral Routine Other specified Ex pected: 01/22/2021 - Referral to CC counseling (Approximat e), Expires: 2021 documented as of this encounter Visit Diagnoses Diagnosis Other specified counseling documented in this encounter Care Teams Glove Cuffer Relationship Specialty Start Date End Date Froylan Louise MD PCP - General Family Practice 02/22/14 Froylan Louise MD Assigned PCP 03/13/14 2 Esthela Corea, RN Personal Advocate & Liaison Family Medicine 10/16 (PAL) documented as of this encounter
--- OUTSIDE RECORDS SUMMARY | 2022-05-15 22:20 | XMS_ITS | Encounter Summary ---
:1955 Author Organization [place] Address [facility] [place] [address] Care Team Providers Name Role Phone Froylan Louise MD Primary Care Provider Unavailable Froylan Louise MD Unavailable Unavailable Esthela Corea RN Unavailable Unavailable Encounter Details Date Type Department Care Team Description 01/11/2021 Telephone [facility] [place] Nuñez MD [facility] [address] [place] [address] [place] [address] [place] [address] [phone] Social History Tobacco Use Types Packs/Day Years Used Date Smoking Tobacco: Former Cigarettes 2 25 Quit : 08/04/2006 Smokeless Tobacco: Never Comments: 2004 Alcohol Use Standard Drinks/Week Comments Yes 0 (1 standard drink = 0.6 oz pure alcoho l) 4 BEERS A WEEK Alcohol Habits Answer Date Recorded How often do you have a drink containing 4 or more times a w [facility] 05/25/2021 alcohol? How many drinks containing [...] you attend yazidi or Patient refused 2020 mormon services? Do you belong to any clubs [...] Telephone Encounter - Esthela Ro RN - 01/11/2021 12:28 PM CDT Patient wants to only stay Friday through Friday. Patient will talk to Dr. Nuñez in OR on Friday morning. Telephone Encounter - Nicolas Ford - 01/11/2021 11:31 AM CDT [facility] Who is the name of the provider?: Savannah What is the location you see this provider at?: [place] Reason for call: Question re dosage for the OTC supplement Hesperidin Diosmin. Can we leave a detailed message on this number? YES documented in this encounter Plan of Treatment Upcoming Encounters Date Type Specialty Care Team Description 05/20/2022 Lab Lab documented as of this encounter Visit Diagnoses Not on filedocumented in this encounter Care Teams Scraper Loader Operator Relationship Specialty Start Date End Date Froylan Louise MD PCP - General Family Practice 02/22/14 Froylan Louise MD Assigned PCP 03/13/14 2 Esthela Corea RN Personal Advocate & Liaison Family Medicine 10/16 (PAL) documented as of this encounter
--- OUTSIDE RECORDS SUMMARY | 2022-05-15 22:20 | XMS_ITS | Encounter Summary ---
:1955 Author Organization [place] Address [address] [place] [address]. [place] [address] Care Team Providers Name Role Phone Froylan Louise MD Primary Care Provider Unavailable Froylan Louise MD Unavailable Unavailable Esthela Corea RN Unavailable Unavailable Encounter Details Date Type Department Care Team Description 01/12/[address] [facility], Chronic deep vein thrombosis (DVT) of lower extremity, unspecified laterality, unspecified vein (H) (Primary Dx); Therapy Visit Anticoagulation Diana Conrad RN senior care current use of anticoagulant therapy Clinic [address] [place] [address] Social History Tobacco Use Types [...] containing 4 or more times a w [place] 05/25/2021 alcohol? How many drinks containing alcohol [...] you attend zoroastrianism or Patient refused 2020 voodoo services? Do you belong to any clubs [...] encounter Progress Notes Diana Nielsen RN - 01/12/2021 3:33 PM CDT ANTICOAGULATION MANAGEMENT Virgil Christine 65 year old male is on warfarin with subtherapeutic INR result. (Goal INR 2.0-3.0) Recent labs: (last 7 days) 01/12/21 1241 INR 1.6* ASSESSMENT Source(s): Chart Review and Patient/Caregiver Call ??? Warfarin doses taken: Warfarin taken as instructed and Warfarin recently held for upcoming invasive procedure 01/15/21 which may be affecting INR ??? Diet: No new diet changes identified ??? New illness, injury, or hospitalization: No ??? Medication/supplement changes: None noted ??? Signs or symptoms of bleeding or clotting: No ??? Previous INR: Supratherapeutic ? ? Additional findings: Bridging with Enoxaparin until INR >= 2.3 or INR >= 2.0 x 2 ([facility] protocol goal INR 2-3) PLAN Recommended plan for temporary change(s) affecting INR Dosing Instructions: Continue bridging with Enoxaparin with next INR in 10 days Summary As of 01/12/2021 Full warfarin instructions: 01/12: Hold; 01/13: Hold; 01/14: Hold; 01/15: 15 mg; 01/16: 15 mg; Otherwise5 mg every Mon, Wed, Fri; 7.5 mg all other days Next INR check: 01/22/2021 Telephone call with Virgil who verbalizes understanding and agrees to plan Lab visit scheduled Education provided: Please call back if any changes to your diet, medications or how you've been taking warfarin Plan made per [facility] anticoagulation protocol Diana Nielsen RN Anticoagulation Clinic 01/12/2021 Anticoagulation Episode Summary Current INR goal: 2.0-3.0 TTR: 70.9 % (1 y) Target end date: Indefinite Send INR reminders to: [facility] Indications Chronic deep vein thrombosis (DVT) of lower extremity unspecified laterality unspecified vein (H) [I82.509] Long-term (current) use of anticoagulants [Z79.01] [Z79.01] Comments: Anticoagulation Care Providers Provider Role Specialty Phone number Froylan Louise MD Referring Family Medicine [phone] documented in this encounter Plan of Treatment Upcoming Encounters Date Type Specialty Care Team Description 05/20/2022 Lab Lab documented as of this encounter Visit Diagnoses Diagnosis Chronic deep vein thrombosis (DVT) of lo wer extremity, unspecified laterality, unspecified vein (H) - 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
--- OUTSIDE RECORDS SUMMARY | 2022-05-15 22:20 | XMS_ITS | Encounter Summary ---
:1955 Author Organization [place] Address [address] [place] [address]. [place] [address] Care Team Providers Name Role Phone Froylan Louise MD Primary Care Provider Unavailable Froylan Louise MD Unavailable Unavailable Esthela Corea RN Unavailable Unavailable Encounter Details Date Type Department Care Team Description 01/22/2021 Anticoagulation [facility], Chronic deep vein thrombosis (DVT) of lower extremity, unspecified laterality, unspecified vein (H) (Primary Dx); Therapy Visit Anticoagulation Diana Conrad RN snf current use of anticoagulant therapy Clinic [address] [place] [address] Social History Tobacco Use Types [...] containing 4 or more times a w [place] 05/25/2021 alcohol? How many drinks containing alcohol [...] or relatives? How often do you attend confucianism or Patient refused 2020 congregation services? Do you belong to any clubs or Yes 05/25/2021 organizations such as confucianism groups, unions, fraternal or athletic groups, or [...] encounter Progress Notes Diana Nielsen RN - 01/22/2021 5:33 PM CDT ANTICOAGULATION MANAGEMENT Virgil Christine 65 year old male is on warfarin with subtherapeutic INR result. (Goal INR 2.0-3.0) Recent labs: (last 7 days) 01/22/21 1328 INR 1.3* ASSESSMENT Source(s): Chart Review and Patient/Caregiver Call ??? Warfarin doses taken: Warfarin taken as instructed ??? Diet: No new diet changes identified ??? New illness, injury, or hospitalization: Yes: had wound debridement and wound vac placed last week. had problems with bleeding at wound site so provider stopped Lovenox. Originally planned booster doses were never given in hospital ??? Medication/supplement changes: None noted ??? Signs or symptoms of bleeding or clotting: Yes: but not currently, wound healing well ??? Previous INR: Subtherapeutic ??? Additional findings: None PLAN Recommended plan for temporary change(s) affecting INR Dosing Instructions: Two Booster dose then continue your current warfarin dose with next INR in 4 days Summary As of 01/22/2021 Full warfarin instructions: 8: 15 mg; 8/3: 15 mg; Otherwise 5 mg every Mon, Wed, Fri; 7.5 mg all other days Next INR check: 01/26/2021 Telephone call with Virgil who verbalizes understanding and agrees to plan Lab visit scheduled Education provided: Please call back if any changes to your diet, medications or how you've been taking warfarin, Monitoring for bleeding signs and symptoms, Monitoring for clotting signs and symptoms and When to seek medical attention/emergency care Plan made with [facility] Pharmacist Susanna Nielsen RN Anticoagulation Clinic 01/22/2021 Anticoagulation Episode Summary Current INR goal: 2.0-3.0 TTR: 70.1 % (11.8 mo) Target end date: Indefinite Send [facility] Indications Chronic deep vein thrombosis (DVT) of lower extremity unspecified laterality unspecified vein (H) [I82.509] Long-term (current) use of anticoagulants [Z79.01] [Z79.01] Comments: Anticoagulation Care Providers Provider Role Specialty Phone number Froylan Louise MD Referring Family Medicine [phone] Associated attestation - Susanna Mendoza RPH - 01/22/2021 6:24 PM CDT Chart reviewed at the time of the encounter. Lack of movement in INR due to no booster doses given while inpatient. Agree with plan as outlined. 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
--- OUTSIDE RECORDS SUMMARY | 2022-05-15 22:21 | XMS_ITS | Encounter Summary ---
:1955 Author Organization [place] Address [address] [place] [address] Care Team Providers Name Role Phone Froylan Louise MD Primary Care Provider Unavailable Froylan Louise MD Unavailable Unavailable Esthela Corea RN Unavailable Unavailable Encounter Details Date Type Department Care Team Description 01/01/2021 Anticoagulation Therapy [facility] Audrey Louise Chronic deep vein thrombosis (DVT) of lower extremity, unspecified laterality, unspecified vein (H) (Primary Dx); Visit Clinic Chhaya Dubose MD intermediate card tender current use of ant icoagulant therapy [address] [place] [address] Social History Tobacco Use Types [...] containing 4 or more times a w [place] 05/25/2021 alcohol? How many drinks containing alcohol [...] you attend adventist or Patient refused 2020 confucianism services? Do you belong to any clubs [...] been in contact with No / Unsure 12/28/2020 1:50 PM CDT someone who was confirmed or suspected to have Coronavirus / COVID-19? documented as of this encounter Progress Notes Hilda Childers RN - 01/01/2021 2:21 PM CDT Anticoagulation Management Unable to reach pt today. Today's INR result of 3.7 is supratherapeutic (goal INR of 2.0-3.0). Result received from: Clinic Lab Follow up required to confirm warfarin dose taken and assess for changes LM I have attempted to contact this patient by phone, left message to return call to the coumadin clinic. Will try again later. Advised 3.75 mg today Anticoagulation clinic to follow up Hilda Childers RN Sophie Amaya RN - 01/01/2021 2:21 PM CDT Patient left a voicemail at 4:41 PM returning a call. He can be reached at [phone]. Thanks, Sophie Amaya RN 01/01/21 at 4:59 PM Hilda Childers RN - 01/01/2021 2:21 PM CDT ANTICOAGULATION MANAGEMENT Virgil Christine 65 year old male is on warfarin with supratherapeutic INR result. (Goal INR 2.0-3.0) Recent labs: (last 7 days) 01/01/21 1359 INR 3.7* ASSESSMENT Source(s): Patient/Caregiver Call ??? Warfarin doses taken: Warfarin taken as instructed ??? Diet: No new diet changes identified ??? New illness, injury, or hospitalization: Yes: Pt reports possible knee infection, seeing computer forensic specialist tomorrow. He will call and let us know if put on abx. ??? Medication/supplement changes: None noted ??? Signs or symptoms of bleeding or clotting: No ??? Previous INR: Supratherapeutic ??? Additional findings: None PLAN Recommended plan for temporary change(s) affecting INR Dosing Instructions: Take 3.75 mg today, 7.5 mg TU and 5 mg Wed with next INR in 3 days Summary As of 01/01/2021 Full warfarin instructions: 01/01: 3.75 mg; Otherwise 3.75 mg every Mon; 5 mg every Wed; 7.5 mg all other days Next INR check: 01/04/2021 Telephone call with Virgil who verbalizes understanding and agrees to plan Patient offered & declined to schedule next visit Education provided: Importance of notifying clinic for changes in medications; a sooner lab recheck maybe needed. Plan made per [facility] anticoagulation protocol Hilda Childers RN Anticoagulation Clinic 01/01/2021 Anticoagulation Episode Summary Current INR goal: 2.0-3.0 TTR: 70.9 % (1 y) Target end date: Indefinite Send INR reminders to: [facility] Indications Chronic deep vein thrombosis (DVT) of lower extremity unspecified laterality unspecified vein (H) [I82.509] Long-term (current) use of anticoagulants [Z79.01] [Z79.01] Comments: Anticoagulation Care Providers Provider Role Specialty Phone number Froylan Louise MD Referring Family Medicine [phone] documented in this encounter Plan of Treatment Upcoming Encounters Date Type Specialty Care Team Description 05/20/2022 Lab Lab documented as of this encounter Visit Diagnoses Diagnosis Chronic deep vein thrombosis (DVT) of lo wer extremity, unspecified laterality, unspecified vein (H) - Primary intermediate card tender current use of anticoagulant t herapy documented in this encounter Care Teams Dross Skimmer Relationship Specialty Start Date End Date Froylan Louise MD PCP - General Family Practice 02/22/14 Froylan Louise MD Assigned PCP 03/13/14 2 Esthela Corea RN Personal Advocate & Liaison Family Medicine 10/16 (PAL) documented as of this encounter
--- OUTSIDE RECORDS SUMMARY | 2022-05-15 22:21 | XMS_ITS | Encounter Summary ---
:1955 Author Organization [place] Address [address] [place] [address] Care Team Providers Name Role Phone Froylan Louise MD Primary Care Provider Unavailable Froylan Louise MD Unavailable Unavailable Esthela Corea RN Unavailable Unavailable Encounter Details Date Type Department Care Team Description 01/01/2021 [facility] Chr onic deep vein thrombosis (DVT) of lower extremity, unspecified laterality, unspecified vein (H); [facility] intermediate frame tender current use of ant icoagulant therapy [address] [place] [address] Social History Tobacco Use [...] containing 4 or more times a w [place] 05/25/2021 alcohol? How many drinks containing alcohol [...] you attend druze or Patient refused 2020 baptist services? Do [...] Comme nts INR POINT OF CARE Routine 01/01/2021 1:59 PM Chronic deep vein Results for this CDT thrombosis (DVT) of procedur e are in lower extremity, the results unspecified section. laterality, unspecified vein (H) [facility] current use of anticoagulant therapy documented in this encounter Results (ABNORMAL) INR point of care (01/01/2021 1:59 PM CDT) P athologist Signature INR 3.7 (H) 0.9 - 1.1 01/01/2021 [facility] 2:04 PM CDT Specimen Anatomical Collection Method / Collection Time Recei lindy Time (Source) Location / Volume Laterality Blood STRUCTURE OF Venipuncture / 01/01/2021 1:59 01/01/2021 1:59 FINGER OF RIGHT Unknown PM CDT PM CDT HAND / Unknown Narrative [facility] - 01/01/2021 2:04 PM CDT This test is intended for monitoring Cou madin therapy. Results are not accurate in patients with prolonged INR due to facto r deficiency. Froylan Louise MD LAB - BLOOD ORDERABLES Performing Organization Address City/State/ZIP [place] [address] Lab [address] [facility] Lab (no room number, 1st floor of clinic) [place] [address], [facility] [address] [facility]no room number, 1st floor of clinic) documented in this encounter Visit Diagnoses Diagnosis Chronic deep vein thrombosis (DVT) of lo wer extremity, unspecified laterality, unspecified vein (H) intermediate frame tender current use of anticoagulant t herapy documented in this encounter Care Teams Pattern Cleaner Relationship Specialty Start Date End Date Froylan Louise MD PCP - General Family Practice 02/22/14 Froylan Louise MD Assigned PCP 03/13/14 2 Esthela Corea RN Personal Advocate & Liaison Family Medicine 10/16 (PAL) documented as of this encounter
--- OUTSIDE RECORDS SUMMARY | 2022-05-15 22:21 | XMS_ITS | Encounter Summary ---
:1955 Author Organization [place] Address [address] [place] [address] Care Team Providers Name Role Phone Froylan Louise MD Primary Care Provider Unavailable Froylan Louise MD Unavailable Unavailable Esthela Corea RN Unavailable Unavailable Encounter Details Date Type Department Care Team Description 12/28/2020 Orders Only [facility] onic deep vein thrombosis (DVT) of lower extremity, unspecified laterality, unspecified vein (H); [facility] long-term current use of ant icoagulants with INR goal of 2.0-3.0 [address] [place] [address] Social History Tobacco Use [...] attend roman catholic or Patient refused 2020 lutheran services? Do you belong to any clubs [...] Name Priority Date/Time Associated Diagnosis Comme nts CAPILLARY BLOOD Routine 12/28/2020 1:53 PM Chronic deep vein R esults for this COLLECTION CDT thrombosis (DVT) of procedgerald e are in lower extremity, the results unspecified section. laterality, unspecified vein (H) INR Routine 12/28/2020 1:53 PM Chronic deep vein Resu lts for this CDT thrombosis (DVT) of raisa e are in lower extremity, the results unspecified section. 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 [address] (ABNORMAL) INR (12/28/2020 1:53 PM CDT) P athologist Signature INR 3.80 (H) 0.86 - 1.14 12/28/2020 [place] 1:58 PM CDT [facility] Comment: This test is intended for monitoring Cou madin therapy. ??Results are not accurate in patients with prolonged INR due to factor deficiency. Specimen Anatomical Collection Method Collection Time Receive d Time (Source) Location / / Volume Laterality Blood specimen 12/28/2020 1:53 PM 021 1:54 (specimen) CDT PM CDT Froylan Louise MD LAB - BLOOD ORDERABLES Performing Organization Address City/State/ZIP Code Phon e Number [facility] [phone] [place] [address] documented in this encounter Visit Diagnoses Diagnosis Chronic deep vein thrombosis (DVT) of lo wer extremity, unspecified laterality, unspecified vein (H) long-term current use of anticoagulants with INR goal of 2.0-3.0 documented in this encounter Care Teams Burnishing Machine Operator Relationship Specialty Start Date End Date Froylan Louise MD PCP - General Family Practice 02/22/14 Froylan Louise MD Assigned PCP 03/13/14 2 Esthela Corea, RN Personal Advocate & Liaison Family Medicine 10/16 (PAL) documented as of this encounter
--- OUTSIDE RECORDS SUMMARY | 2022-05-15 22:21 | XMS_ITS | Encounter Summary ---
:1955 Author Organization [place] Address [address] [place] [address] Care Team Providers Name Role Phone Froylan Louise MD Primary Care Provider Unavailable Froylan Louise MD Unavailable Unavailable Esthela Corea RN Unavailable Unavailable Reason for Visit Reason Onset Date Comments Erroneous encounter-disregard 12/25/2020 Encounter Details Date Type Department Care Team Description 12/25/2020 [facility] Froylan Louise Erro neous [facility] Chhaya VILLASEÑOR encounter-disregard [address] [place] [address] Social History Tobacco Use Types [...] containing 4 or more times a w [place] 05/25/2021 alcohol? How many drinks containing alcohol [...] you attend mosque or Patient refused 2020 jain services? Do you belong to any clubs [...] been in contact with No / Unsure 12/11/2020 12:45 PM CDT someone who was confirmed or suspected to have Coronavirus / COVID-19? documented as of this encounter Miscellaneous Notes Telephone Encounter - Diana Nielsen RN - 12/25/2020 1:49 PM CDT Error documented in this encounter Plan of Treatment Upcoming Encounters Date Type Specialty Care Team Description 05/20/2022 Lab Lab documented as of this encounter Visit Diagnoses Not on filedocumented in this encounter Care Teams Dramatic Director Relationship Specialty Start Date End Date Froylan Louise MD PCP - General Family Practice 02/22/14 Froylan Louise MD Assigned PCP 03/13/14 2 Esthela Corea RN Personal Advocate & Liaison Family Medicine 10/16 (PAL) documented as of this encounter
--- OUTSIDE RECORDS SUMMARY | 2022-05-15 22:21 | XMS_ITS | Encounter Summary ---
:1955 Author Organization [facility] Address [address] [place] [address] Care Team Providers Name Role Phone Froylan Louise MD Primary Care Provider Unavailable Froylan Louise MD Unavailable Unavailable Esthela Corea RN Unavailable Unavailable Encounter Details Date Type Department Care Team Description 12/28/2020 Anticoagulation Therapy [facility] Audrey Louise Chronic deep vein thrombosis (DVT) of lower extremity, unspecified laterality, unspecified vein (H); Visit Clinic Chhaya Dubose MD [facility] current use of ant icoagulant therapy [address] [place] [address] Social History Tobacco Use Types [...] you attend sabianist or Patient refused 2020 presybeterian services? Do [...] encounter Progress Notes Shaniqua Humphrey RN - 12/28/2020 2:10 PM CDT ANTICOAGULATION MANAGEMENT Virgil Christine 65 year old male is on warfarin with supratherapeutic INR result. (Goal INR 2.0-3.0) Recent labs: (last 7 days) 12/28/20 1353 INR 3.80* ASSESSMENT Source(s): Patient/Caregiver Call ??? Warfarin doses taken: Warfarin taken as instructed, several extra boost doses in the last week post injection. ??? Diet: No new diet changes identified ??? New illness, injury, or hospitalization: Yes, ER visit on 12/25/20 for left knee wound, infected per patient. No abx rx. ??? Medication/supplement changes: None noted ??? Signs or symptoms of bleeding or clotting: No ??? Previous INR: Subtherapeutic ??? Additional findings: None PLAN Recommended plan for temporary change(s) affecting INR Dosing Instructions: Stop Lovenox bridging now. Partial hold then continue your current warfarin dose with next INR in 7-10 days Summary As of 12/28/2020 Full warfarin instructions: 12/28: 3.75 mg; Otherwise 5 mg every Wed; 7.5 mg all other days Next INR check: 01/01/2021 Telephone call with Virgil who verbalizes understanding and agrees to plan Patient elected to schedule next visit 01/01/21 Education provided: Please call back if any changes to your diet, medications or how you've been taking warfarin, Monitoring for bleeding signs and symptoms, Monitoring for clotting signs and symptoms and Importance of notifying clinic for changes in medications; a sooner lab recheck maybe needed. Plan made per [facility] anticoagulation protocol Shaniqua Humphrey RN Anticoagulation Clinic 12/28/2020 Anticoagulation Episode Summary Current INR goal: 2.0-3.0 TTR: 70.9 % (1 y) Target end date: Indefinite [facility] Indications Chronic deep vein thrombosis (DVT) of lower extremity unspecified laterality unspecified vein (H) [I82.509] Long-term (current) use of anticoagulants [Z79.01] [Z79.01] Comments: Anticoagulation Care Providers Provider Role Specialty Phone number Froylan Louise MD Referring Family Medicine [phone] documented in this encounter Plan of Treatment Upcoming Encounters Date Type Specialty Care Team Description 05/20/2022 Lab Lab documented as of this encounter Visit Diagnoses Diagnosis Chronic deep vein thrombosis (DVT) of lo wer extremity, unspecified laterality, unspecified vein (H) [facility] current use of anticoagulant t herapy documented in this encounter Care Teams Wetland Scientist Relationship Specialty Start Date End Date Froylan Louise MD PCP - General Family Practice 02/22/14 Froylan Louise MD Assigned PCP 03/13/14 2 Esthela Corea, RN Personal Advocate & Liaison Family Medicine 10/16 (PAL) documented as of this encounter
--- OUTSIDE RECORDS SUMMARY | 2022-05-15 22:21 | XMS_ITS | Encounter Summary ---
:1955 Author Organization [facility] Address [address] [place] [address] Care Team Providers Name Role Phone Froylan Louise MD Primary Care Provider Unavailable Froylan Louise MD Unavailable Unavailable Esthela Corea RN Unavailable Unavailable Encounter Details Date Type Department Care Team Description 01/02/2021 Travel Social History Tobacco Use Types Packs/Day Years Used Date Smoking Tobacco: Former Cigarettes 2 25 Quit : 08/04/2006 Smokeless Tobacco: Never Comments: 2004 Alcohol Use Standard Drinks/Week Comments Yes 0 (1 standard drink = 0.6 oz pure alcoho l) 4 BEERS A WEEK Alcohol Habits Answer Date Recorded How often do you have a drink containing 4 or more times a w [place] 05/25/2021 alcohol? How many drinks containing alcohol [...] you attend gnosticist or Patient refused 2020 amish services? Do [...] been in contact with No / Unsure 01/02/2021 9:49 AM CDT someone who was confirmed or suspected to have Coronavirus / COVID-19? documented as of this encounter Plan of Treatment Upcoming Encounters Date Type Specialty Care Team Description 05/20/2022 Lab Lab documented as of this encounter Visit Diagnoses Not on filedocumented in this encounter Care Teams Chain Sales Representative Relationship Specialty Start Date End Date Froylan Louise MD PCP - General Family Practice 02/22/14 Froylan Louise MD Assigned PCP 03/13/14 2 Esthela Corea, RN Personal Advocate & Liaison Family Medicine 10/16 (PAL) documented as of this encounter
--- OUTSIDE RECORDS SUMMARY | 2022-05-15 22:21 | XMS_ITS | Encounter Summary ---
:1955 Author Organization [facility] Address [address] [place] [address] Care Team Providers Name Role Phone Froylan Louise MD Primary Care Provider Unavailable Froylan Louise MD Unavailable Unavailable Esthela Corea RN Unavailable Unavailable Reason for Visit Reason Onset Date Comments Erroneous encounter-disregard 12/25/2020 Encounter Details Date Type Department Care Team Description 12/25/2020 [facility] Froylan Louise Erro neous [facility] Chhaya VILLASEÑOR encounter-disregard [address] [place] [address] Social History Tobacco Use Types [...] 4 or more times a w [place] 05/25/2021 alcohol? How many drinks containing alcohol [...] you attend restoration or Patient refused 2020 gnosticism services? Do [...] been in contact with No / Unsure 12/25/2020 1:59 PM CDT someone who was confirmed or suspected to have Coronavirus / COVID-19? documented as of this encounter Miscellaneous Notes Telephone Encounter - Herve Gallardo RN - 12/25/2020 2:59 PM CDT Erroneous encounter documented in this encounter Plan of Treatment Upcoming Encounters Date Type Specialty Care Team Description 05/20/2022 Lab Lab documented as of this encounter Visit Diagnoses Not on filedocumented in this encounter Care Teams Grain Oilseed Or Pasture Grower Relationship Specialty Start Date End Date Froylan Louise MD PCP - General Family Practice 02/22/14 Froylan Louise MD Assigned PCP 03/13/14 2 Esthela Corea RN Personal Advocate & Liaison Family Medicine 10/16 (PAL) documented as of this encounter
--- OUTSIDE RECORDS SUMMARY | 2022-05-15 22:21 | XMS_ITS | Encounter Summary ---
:1955 Author Organization [facility] Address [address] [place] [address] Care Team Providers Name Role Phone Froylan Louise MD Primary Care Provider Unavailable Froylan Louise MD Unavailable Unavailable Esthela Corea RN Unavailable Unavailable Encounter Details Date Type Department Care Team Description 01/09/2021 Travel Social History Tobacco Use Types Packs/Day [...] you attend synagogue or Patient refused 2020 buddhism services? Do [...] on filedocumented in this encounter Care Teams Branch Maker Relationship Specialty Start Date End Date Froylan Louise MD PCP - General Family Practice 02/22/14 Froylan Louise MD Assigned PCP 03/13/14 2 Esthela Corea, RN Personal Advocate & Liaison Family Medicine 10/16 (PAL) documented as of this encounter
--- OUTSIDE RECORDS SUMMARY | 2022-05-15 22:21 | XMS_ITS | Encounter Summary ---
:1955 Author Organization [facility] Address [address] [place] [address]. [place] [address] Care Team Providers Name Role Phone Froylan Louise MD Primary Care Provider Unavailable Froylan Luoise MD Unavailable Unavailable Esthela Corea RN Unavailable Unavailable Encounter Details Date Type Department Care Team Description 12/26/2020 Telephone [facility] Uriel Pitts MD Hospitalist Program [address] [facility] [address] [facility] [address] [place] [address] [place], [place] [address] (Wo rk) Social History Tobacco Use Types [...] containing 4 or more times a w [place] 05/25/2021 alcohol? How many drinks containing alcohol [...] you attend anabaptist or Patient refused 2020 episcopal services? Do [...] in contact with No / Unsure 12/25/2020 5:23 PM CDT someone who was confirmed or suspected to have Coronavirus / COVID-19? documented as of this encounter Miscellaneous Notes Telephone Encounter - Swathi Cazares - 12/26/2020 11:55 AM CDT Scheduled 01/25/21 at 9am, patient wants sooner with . Telephone Encounter - lEvis Miles LPN - 12/26/2020 10:51 AM CDT Received referral from work que for knee wound please schedule with Dr. Nuñez. documented in this encounter Plan of Treatment Upcoming Encounters Date Type Specialty Care Team Description 05/20/2022 Lab Lab documented as of this encounter Visit Diagnoses Not on filedocumented in this encounter Care Teams Mandrel Press Hand Relationship Specialty Start Date End Date Froylan Louise MD PCP - General Family Practice 02/22/14 Froylan Louise MD Assigned PCP 03/13/14 2 Esthela Corea RN Personal Advocate & Liaison Family Medicine 10/16 (PAL) documented as of this encounter
--- OUTSIDE RECORDS SUMMARY | 2022-05-15 22:21 | XMS_ITS | Encounter Summary ---
:1955 Author Organization [facility] Address [address] [place] [address] Care Team Providers Name Role Phone Froylan Louise MD Primary Care Provider Unavailable Froylan Louise MD Unavailable Unavailable Esthela Corea RN Unavailable Unavailable Reason for Visit Reason Onset Date Comments surgery 01/09/2021 Encounter Details Date Type Department Care Team Description 01/09/2021 [facility] Froylan Louise Ra, MD surgery [address] [address] Social History Tobacco Use [...] 4 or more times a w [place] 05/25/2021 alcohol? How many drinks containing alcohol [...] you attend jew or Patient refused 2020 tenriism services? Do [...] Encounter - Esthela Corea RN - 01/09/2021 12:10 PM CDT Pt having surgery for 01/15 for non healing wound. He wiill need to stop coumadin He did bridge with last hold.. INR Date Value Ref Range Status 01/04/2021 3.8 (H) 0.9 - 1.1 Final 12/28/2020 3.80 (H) 0.86 - 1.14 Final Comment: This test is intended for monitoring Coumadin therapy. Results are not accurate in patients with prolonged INR due to factor deficiency. Please advise - Per PCP hold for 5 days - Routed to [facility] for bridging. Esthela Corea RN documented in this encounter Plan of Treatment Upcoming Encounters Date Type Specialty Care Team Description 05/20/2022 Lab Lab documented as of this encounter Visit Diagnoses Diagnosis Chronic deep vein thrombosis (DVT) of lo wer extremity, unspecified laterality, unspecified vein (H) director media current use of anticoagulant t herapy documented in this encounter Care Teams Cook Room Supervisor Relationship Specialty Start Date End Date Froylan Louise MD PCP - General Family Practice 02/22/14 Froylan Louise MD Assigned PCP 03/13/14 2 Esthela Corea RN Personal Advocate & Liaison Family Medicine 10/16 (PAL) documented as of this encounter
--- OUTSIDE RECORDS SUMMARY | 2022-05-15 22:21 | XMS_ITS | Encounter Summary ---
:1955 Author Organization [facility] Address [address] [place] [address] Care Team Providers Name Role Phone Froylan Louise MD Primary Care Provider Unavailable Froylan Louise MD Unavailable Unavailable Esthela Corea RN Unavailable Unavailable Reason for Visit Reason Comments Allied Health Visit bp Encounter Details Date Type Department Care Team Description 12/25/2020 Allied Health/Nurse Health [facility] Visit Visit Clinic [facility] () [id number] [place] [phone] Social History Tobacco Use Types Packs/Day Years Used Date Smoking Tobacco: Former Cigarettes 2 25 Quit : 08/04/2006 Smokeless Tobacco: Never Comments: 2004 Alcohol Use Standard Drinks/Week Comments Yes 0 (1 standard drink = 0.6 oz pure alcoho l) 4 BEERS A WEEK Alcohol Habits Answer Date Recorded How often do you have a drink containing 4 or more times a w [place] 05/25/2021 alcohol? How many drinks containing alcohol [...] you attend jewish or Patient refused 2020 zoroastrianism services? Do [...] Sign Reading Time Taken Comments Blood Pressure 145/80 12/25/2020 2:02 PM CDT Pulse 83 12/25/2020 2:02 PM CDT Temperature - - Respiratory Rate - - Oxygen Saturation 98% 12/25/2020 2:02 PM CDT Inhaled Oxygen Concentration - - Weight - - Height - - Body Mass Index - - documented in this encounter Progress Notes Rabia Mobley CMA - 12/25/2020 1:40 PM CDT Pt. Is in pain from knee. Herve Gallardo RN - 12/25/2020 1:40 PM CDT After MA and RN huddled regarding knee pain patient was reporting, went into room to triage. Patient reports 3-4 weeks ago patient fell when running and hit his left knee on the pavement with force. Patient reporting there was no blood at the time of injury, also reports that 2 weeks ago they were evaluated at [facility] (no documentation of this per chart review) Patient removes bandage from left knee and reveals a wound with black eschar present in center of wound, beneath the eschar, patient reporting there is nothing under there, and patientpatient reporting no pain. Patient was asked to stop manipulating wound area several times, patient continues to do so and a large spatter of blood comes from knee area. At this time this RN has second set of eyes (EMT) and a provider look at wound area, patient was instructed to be evaluated in the ED [facility], wound was bandaged and patient will go to ED now. Herve Gallardo RN documented in this encounter Plan of Treatment Upcoming Encounters Date Type Specialty Care Team Description 05/20/2022 Lab Lab documented as of this encounter Visit Diagnoses Diagnosis BP check - Primary Screening for hypertension documented in this encounter Care Teams Academic Support Assistant Relationship Specialty Start Date End Date Froylan Louise MD PCP - General Family Practice 9/2/14 7/ 20/22 Froylan Louise MD Assigned PCP 03/13/14 2 Esthela Corea RN Personal Advocate & Liaison Family Medicine 10/16 (PAL) documented as of this encounter
--- OUTSIDE RECORDS SUMMARY | 2022-05-15 22:21 | XMS_ITS | Encounter Summary ---
:1955 Author Organization [facility] Address [address] [place] [address] Care Team Providers Name Role Phone Froylan Louise MD Primary Care Provider Unavailable Froylan Louise MD Unavailable Unavailable Esthela Corea RN Unavailable Unavailable Encounter Details Date Type Department Care Team Description 01/04/2021 [facility] Chr onic deep vein thrombosis (DVT) of lower extremity, unspecified laterality, unspecified vein (H); [facility] interpreter translator current use of ant icoagulant therapy [address] [place] [address] Social History Tobacco Use [...] you attend orthodox or Patient refused 2020 hinduism services? Do [...] been in contact with No / Unsure 01/04/2021 1:55 PM CDT someone who was confirmed or suspected to have Coronavirus / COVID-19? documented as of this encounter Plan of Treatment Upcoming Encounters Date Type Specialty Care Team Description 05/20/2022 Lab Lab documented as of this encounter Procedures Procedure Name Priority Date/Time Associated Diagnosis Comme nts INR POINT OF CARE Routine 01/04/2021 1:57 PM Chronic deep vein Results for this CDT thrombosis (DVT) of procedur e are in lower extremity, the results unspecified section. laterality, unspecified vein (H) interpreter translator current use of anticoagulant therapy documented in this encounter Results (ABNORMAL) INR point of care (01/04/2021 1:57 PM CDT) P athologist Signature INR 3.8 (H) 0.9 - 1.1 01/04/2021 [facility] 2:02 PM CDT Specimen Anatomical Collection Method Collection Time Receive d Time (Source) Location / / Volume Laterality Blood STRUCTURE OF Capillary / 01/04/2021 1:57 PM 2:01 FINGER OF LEFT Unknown CDT PM CDT HAND / Unknown Narrative [facility] - 01/04/2021 2:02 PM CDT This test is intended for monitoring Cou madin therapy. Results are not accurate in patients with prolonged INR due to facto r deficiency. Froylan Louise MD LAB - BLOOD ORDERABLES Performing Organization Address City/State/ZIP Code Phon e Number [place] [address] Lab [address] [place] [facility] (no room number, 1st floor of clinic) [place] [address], [facility] [address] [place] [facility] (no room number, 1st floor of clinic) documented in this encounter Visit Diagnoses Diagnosis Chronic deep vein thrombosis (DVT) of lo wer extremity, unspecified laterality, unspecified vein (H) interpreter translator current use of anticoagulant t herapy documented in this encounter Care Teams School Bus Aide Relationship Specialty Start Date End Date Froylan Louise MD PCP - General Family Practice 02/22/14 Froylan Louise MD Assigned PCP 03/13/14 2 Esthela Corea, RN Personal Advocate & Liaison Family Medicine 10/16 (PAL) documented as of this encounter
--- OUTSIDE RECORDS SUMMARY | 2022-05-15 22:21 | XMS_ITS | Encounter Summary ---
:1955 Author Organization [place] Address [facility] [place] [facility] [place] [address] Care Team Providers Name Role Phone Froylan Louise MD Primary Care Provider Unavailable Froylan Louise MD Unavailable Unavailable Esthela Corea RN Unavailable Unavailable Reason for Visit Reason Comments WOUND CARE Encounter Details Date Type Department Care Team Description 01/09/2021 Hospital Encounter [facility] Uriel Nuñez Op en knee wound, Wound Clinic Latesha Conrad MD left, initial [address] encounter [address] [place] [phone] Social History Tobacco Use Types Packs/Day Years Used Date Smoking Tobacco: Former Cigarettes 2 25 Quit : 08/04/2006 Smokeless Tobacco: Never Comments: 2004 Alcohol Use Standard Drinks/Week Comments Yes 0 (1 standard drink = 0.6 oz pure alcoho l) 4 BEERS A WEEK Alcohol Habits Answer Date Recorded How often do you have a drink containing 4 or more times a w [place] 05/25/2021 alcohol? How many drinks containing alcohol [...] you attend hoahaoism or Patient refused 2020 samaritan services? Do [...] Sign Reading Time Taken Comments Blood Pressure 147/86 01/09/2021 10:03 AM CDT Pulse 76 01/09/2021 10:03 AM CDT Temperature 36.5 ??C (97.7 ??F) 01/09/2021 10:03 AM CDT Respiratory Rate 18 01/09/2021 10:03 AM CDT Oxygen Saturation - - Inhaled Oxygen Concentration - - Weight - - Height - - Body Mass Index - - documented in this encounter Discharge Instructions Discharge InstructionsWEsthela freed RN - 01/09/2021 10:29 AM CDT Images from the original note were not included. [facility] [address] [place] [phone] Call us at [phone] if you have any questions about your [...] Diosmin 1 tablet twice daily order from [email or web address] or call [phone] Bringone bottle to [facility] Wound care recommendations to left knee wound Irrigate with 20 mL of vashe and syringe. Lightly pack entire wound bed with 1/2 packing strip impregnated with Vashe and apply yellow stripe edemawear from calf to thigh- Change twice daily. Compression: Apply clean compression socks first thing in the morning followed by rosa wrap over the knee. Remove compression dressing if toes turn blue and/or start to feel numb and is not relieved by elevating the leg for one hour. Walk as much as you can. When you sit raise your ankle above your hips to promote wound healing. Marjan Nuñez M.D.. January 09, 2021 If you had a positive experience please indicate on your patient satisfaction survey form that [facility] will be sending you. If you have any billing related questions please call the [facility] Business office at [phone]. The clinic staff does not handle billing related matters. documented in this encounter Medications at Time of Discharge Medication Sig Dispensed Refills Start Date End Date Acetaminophen (TYLENOL 8 Take 1,000 mg by 0 HOUR PO) mouth 2 times daily (2 X 500 mg) fish oil-omega-3 fatty Take 2 g by mouth 0 acids 1000 MG capsule every morning Vitamin Mixture (EMILY-C Take 2 capsules by 0 PO) mouth 2 times daily warfarin ANTICOAGULANT Take 1 tablet (5 30 tablet 1 021 (COUMADIN) 5 MG mg) every tabletIndications: Acute Friday deep vein thrombosis (DVT) of proximal vein of both lower extremities (H), long-term current use of anticoagulants with INR goal of 2.0-3.0 albuterol (PROAIR Inhale 2 puffs 3 Inhaler 3 05/26/2020 HFA/PROVENTIL HFA/VENTOLIN into the lungs HFA) 108 (90 Base) MCG/ACT every 6 hours as inhaler needed for shortness of breath / dyspnea or wheezing amoxicillin-clavulanate Take 1 tablet by 10 tablet 0 202001/19/2021 (AUGMENTIN) 875-125 MG mouth 2 times tabletIndications: Open daily knee wound, left, initial encounter amoxicillin-clavulanate Take 1 tablet by 10 tablet 0 202005/25/2021 (AUGMENTIN) 875-125 MG mouth 2 times tabletIndications: Open daily knee wound, left, initial encounter amoxicillin-clavulanate Take 1 tablet by 10 tablet 0 202001/19/2021 (AUGMENTIN) 875-125 MG mouth 2 times tabletIndications: Open daily for 5 days knee wound, left, initial encounter B Complex Vitamins Take 1 capsule by 0 05/25/2021 (VITAMIN B COMPLEX PO) mouth every morning cyanocobalamin (VITAMIN Take 1,000 mcg by 0 05/25/2021 B-12) 1000 MCG tablet mouth every morning enoxaparin ANTICOAGULANT Inject 0.4 mLs (40 4.4 mL 1 01/18/2021 (LOVENOX) 40 MG/0.4ML mg) Subcutaneous syringeIndications: daily Hold day of Chronic deep vein procedure. Restart thrombosis (DVT) of lower 24-48 hours after extremity, unspecified procedure, as laterality, unspecified advised by vein (H), long-term provider. Then current use of continue daily anticoagulant therapy injections until INR 2.3 or higher (or >2.0 twice, 24 hours apart). enoxaparin ANTICOAGULANT Inject 0.4 mLs (40 2.4 mL 1 08/202001/10/2021 (LOVENOX) 40 MG/0.4ML mg) Subcutaneous syringeIndications: daily Hold day of Chronic deep vein procedure. Restart thrombosis (DVT) of lower 24-48 hours after extremity, unspecified procedure, as laterality, unspecified advised by vein (H), long-term provider. Then current use of continue daily anticoagulant therapy injections until INR 2.3 or higher (or >2.0 twice, 24 hours apart). Sdnoeesbirb-Bfdkmgjbr-Uzys Inhale 1 puff into 0 02/05/2021 nterol (TRELEGY ELLIPTA) the lungs every 100-62.5-25 MCG/INH oral morning inhaler Mhsyqorrpzb-Georetmrj-Imbb Inhale 1 puff into 1 Inhaler 11 1 07/27/2019 01/12/2021 nterol (TRELEGY ELLIPTA) the lungs daily 100-62.5-25 MCG/INH oral inhalerIndications: Moderate persistent asthma without complication gabapentin (NEURONTIN) 300 Take 1 capsule 90 capsule 1 01/1905/25/2021 MG capsuleIndications: (300 mg) by mouth Open knee wound, left, 3 times daily initial encounter hydrochlorothiazide Take 25 mg by 0 (HYDRODIURIL) 25 MG tablet mouth every morning hydrochlorothiazide Take 1 tablet (25 90 tablet 1 1 01/12/2021 (HYDRODIURIL) 25 MG mg) by mouth daily tabletIndications: Essential hypertension lactobacillus rhamnosus, Take 1 packet by 0 05/25/2021 GG, (CULTURELL KIDS) mouth 2 times packet daily loperamide (IMODIUM) 2 MG TAKE 3-4 CAPSULES 480 capsule 1 05/24/2021 capsuleIndications: H/O (6-8 MG) BY MOUTH ulcerative colitis 3 TIMES DAILY NEEDED FOR DIARRHEA multivitamin w/minerals Take 1 tablet by 0 01/12/2021 (MULTI-VITAMIN) tablet mouth daily polyethylene glycol Take 17 g by mouth 510 g 1 01/19/20 21 05/25/2021 (MIRALAX) 17 GM/Dose daily powderIndications: Open knee wound, left, initial encounter senna-docusate Take 1 tablet by 60 tablet 0 01/18/2021 12/0 08/2020 (SENOKOT-S/PERICOLACE) mouth 2 times 8.6-50 MG daily tabletIndications: Open knee wound, left, initial encounter sildenafil (VIAGRA) 50 MG Take 0.5-1 tablets 6 tablet 3 05/25/2021 tabletIndications: (25-50 mg) by Erectile dysfunction, mouth daily as unspecified erectile needed dysfunction type sulfaSALAzine (AZULFIDINE) Take 1,000 mg by 0 04/202105/25/2021 500 MG tablet mouth 2 times daily (2 X 500 mg) terazosin (HYTRIN) 2 MG Take 2 mg by mouth 0 02/19/2021 capsule At Bedtime terazosin (HYTRIN) 2 MG TAKE 1 CAPSULE BY 90 capsule 1 09/0601/12/2021 capsuleIndications: Benign MOUTH EVERYDAY AT prostatic hyperplasia with BEDTIME weak urinary stream triamcinolone (KENALOG) APPLY TO AFFECTED 30 g 1 01/0904/19/2021 0.1 % external AREA TWICE A DAY creamIndications: Lichen planus vitamin D3 Take 1 capsule by 0 022 (CHOLECALCIFEROL) 250 mcg mouth every (84022 units) capsule morning warfarin ANTICOAGULANT TAKE 5MG TABLET ON 78 tablet 1 10/2604/19/2021 (COUMADIN) 7.5 MG EVERY WED AND tabletIndications: Acute 7.5MG TABLET ON deep vein thrombosis (DVT) ALL OTHER DAYS OF of proximal vein of both THE WEEK. lower extremities (H) zolpidem ER (AMBIEN CR) TAKE 1 TABLET BY 30 tablet 0 202002/27/2021 12.5 MG CR MOUTH EVERY DAY AT tabletIndications: BEDTIME NEEDED Insomnia, unspecified type FOR SLEEP documented as of this encounter Progress Notes Uriel Nuñez MD - 01/09/2021 10:15 AM CDT Images from the original note were not included. [facility] [place] Progress Note Subject: Virgil Christine consultation for traumatically induced left knee wound 6 weeks ago. Patient has a history of factor V deficiency, history of bilateral extremity venous thromboses, Nicola filter placement, history of colectomy for ulcerative colitis, not currently on immunosuppressants. 6 weeks ago he was walking his dog when he fell, development significant hematoma left knee, subsequent draining ulceration, has been seen by Amaya Yost, physician credit assistant, notes reviewed. He denies fever chills sweats. Persistent significant periwound erythema and serosanguineous drainage. Wound not responding to standard of care dressing changes, has significant associated undermining of approximately 5 to 7 cm. History of right knee surgery, no history of left knee surgery. No history of malignancy. Nondiabetic. Does not utilize tobacco. Typical INR goal range is 2.5. Not currently on antibiotics. PMH: Past Medical History: Diagnosis Date ??? Antiplatelet [...] Unspecified hemorrhoids without mention of complication Hemorrhoids Patient Active Problem List Diagnosis ??? Anticardiolipin antibody positive ??? Mild persistent asthma ??? Health Longterm ? ? Hyperlipidemia LDL goal <130 ??? [...] ??? Open knee wound, left, initial encounter Social Hx: Social History Socioeconomic History ??? Marital status: Spouse name: Not on file ??? Number of children: Not on file ??? Years of education: Not on file ??? Highest education level: Not on file Occupational History ??? Not on file Tobacco Use ??? Smoking status: Former Smoker Packs/day: 2.00 Years: 25.00 Pack years: 50.00 Types: Cigarettes Quit date: 08/04/2006 Years since quittin.4 ??? Smokeless tobacco: Never Used ??? Tobacco comment: 2005 Substance and Sexual Activity ??? Alcohol use: Yes Comment: 4 BEERS A WEEK ??? Drug use: No ??? Sexual activity: Yes Partners: Female Other Topics Concern ??? Parent/sibling w/ CABG, PA or angioplasty before 65F 55M? No Social History Narrative ??? Not on file Social Determinants of Health Financial Resource Strain: ??? Difficulty of Paying Living Expenses: Food Insecurity: ??? Worried About Running Out of Food in the Last Year: ??? Ran Out of Food in the Last Year: Transportation Needs: ??? Lack of Transportation (Medical): ??? Lack of Transportation (Non-Medical): Physical Activity: ??? Days of Exercise per Week: ??? Minutes of Exercise per Session: Stress: ??? Feeling of Stress : Social Connections: ??? Frequency of Communication with Friends and Family: ??? Frequency of Social Gatherings with Friends and Family: ??? Attends Mandaen Services: ??? Active Member of Clubs or Organizations: ??? Attends Club or Organization Meetings: ??? Marital Status: Intimate Partner Violence: ??? Fear of Current or Ex-Partner: ??? Emotionally Abused: ??? Physically Abused: ??? Sexually Abused: Surgical Hx: Past Surgical History: Procedure Laterality Date ??? ARTHROPLASTY KNEE UNICOMPARTMENT 08/20/2013 Procedure: ARTHROPLASTY KNEE UNICOMPARTMENT; Right Knee Uni Arthroplasty ; Surgeon: Jose Fonseca MD; Location: [facility] OR ??? COLECTOMY ??? COLOSTOMY pochoscopy ??? COLOSTOMY 06/20/2017 pouchoscopy ??? EXAM UNDER ANESTHESIA RECTUM N/A 06/12/2018 Procedure: Exam under anesthesia, pouchoscopy, Incision and drainage of abscess. POUCHOSCOPY ; Surgeon: Chase Suazo MD; Location: [facility] OR ??? nicola filter ??? ORTHOPEDIC SURGERY ??? POUCHOSCOPY N/A 06/22/2014 Procedure: POUCHOSCOPY; Surgeon: Chase Suazo MD; Location: [facility] ??? POUCHOSCOPY N/A 06/20/2017 Procedure: POUCHOSCOPY; POUCHOSCOPY ; Surgeon: Chase Suazo MD; Location: [facility] ??? POUCHOSCOPY N/A 06/12/2018 Procedure: POUCHOSCOPY; Surgeon: Chase Suazo MD; Location: [facility] OR ??? POUCHOSCOPY N/A 10/12/2020 Procedure: POUCHOSCOPY; Surgeon: Chase Suazo MD; Location: [facility] ??? RESECTION ABDOMINAL PERINEAL Allergies: No Known Allergies Medications: Current Outpatient Medications Medication ??? Acetaminophen (TYLENOL 8 HOUR PO) ??? albuterol (PROAIR HFA/PROVENTIL HFA/VENTOLIN HFA) 108 (90 Base) MCG/ACT inhaler ??? enoxaparin ANTICOAGULANT (LOVENOX) 40 MG/0.4ML syringe ??? fish oil-omega-3 fatty acids 1000 MG capsule ??? Konwkxiivdu-Bcbivmbaw-Mfzjknvrgb (TRELEGY ELLIPTA) 100-62.5-25 MCG/INH oral inhaler ??? hydrochlorothiazide (HYDRODIURIL) 25 MG tablet ??? lactobacillus rhamnosus, GG, (CULTURELL KIDS) packet ??? loperamide (IMODIUM) 2 MG [...] tablet No current facility-administered medications for this encounter. Labs: Recent Labs Lab Test 01/04/21 1357 12/28/20 1353 12/25/20 1539 05/26/20 1649 05/26/20 1648 12/10/17 0000 05/25/17 0810 ALBUMIN -- -- -- -- 3.5 < > 3.4 HGB -- -- 13.5 < > 15.1 < > 14.6 INR 3.8* < > 1.68* < > -- < > -- WBC -- -- 8.4 < > 6.6 < > 7.5 A1C -- -- -- -- -- -- 5.8 CRP -- -- 24.9* -- -- < > -- < > = values in this interval not displayed. Creatinine Date Value Ref Range Status 12/25/2020 0.89 0.66 - 1.25 mg/dL Final GFR Estimate Date Value Ref Range Status 12/25/2020 >90 >60 mL/min/[1.73_m2] Final Comment: Non GFR Calc Starting 06/09/2018, serum creatinine based estimated GFR (eGFR) will be calculated using the Chronic Kidney Disease Epidemiology Collaboration (CKD-EPI) equation. GFR Estimate If Black Date Value Ref Range Status 12/25/2020 >90 >60 mL/min/[1.73_m2] Final Comment: GFR Calc Starting 06/09/2018, serum creatinine based estimated GFR (eGFR) will be calculated using the Chronic Kidney Disease Epidemiology Collaboration (CKD-EPI) equation. Lab Results Component Value Date WBC 8.4 12/25/2020 Lab Results Component Value Date RBC 4.36 12/25/2020 Lab Results Component Value Date HGB 13.5 12/25/2020 Lab Results Component Value Date HCT 41.2 12/25/2020 No components found for: MCT Lab Results Component Value Date MCV 95 12/25/2020 Lab Results Component Value Date MCH 31.0 12/25/2020 Lab Results Component Value Date MCHC 32.8 12/25/2020 Lab Results Component Value Date RDW 14.2 12/25/2020 Lab Results Component Value Date PLT 216 12/25/2020 Nutrition requirements were discussed with patient today. Objective: BP (!) 147/86 (BP Location: Right arm) Pulse 76 Temp 97.7 ??F (36.5 ??C) (Temporal) Resp 18 Wound (used by OP [facility] only) Left other (see comments) (Active) Dressing Appearance moist drainage 01/09/21 1000 Length (cm) 1.4 01/09/21 1000 Width (cm) 1.6 01/09/21 1000 Depth (cm) 1 01/09/21 1000 Wound (cm^2) 2.24 cm^2 01/09/21 1000 Wound Volume (cm^3) 2.24 cm^3 01/09/21 1000 Wound healing % 45.1 01/09/21 1000 Undermining [Depth (cm)/Location] 5.5cm 4-11 o'clock 01/09/21 1000 Drainage Characteristics/Odor serosanguineous;yellow 01/09/21 1000 Drainage Amount moderate 01/09/21 1000 General: Patient is alert and orientated, no acute distress. Conversant Vascular: Palpable left dorsalis pedis posterior tibial pulse, palpable left popliteal. Significant periwound erythema left mid calf, significant associated undermining, serosanguineous drainage, no purulence, no heel ulceration, no ulcerations of the right lower extremity. See photodocumentation wound measurements. Cultures obtained of undermining. Impression: 6-week history of traumatically induced left lower extremity ulceration after extensive hematoma, left knee, chronic anticoagulation, factor V deficiency, IVC filter, history of ulcerative colitis status post colectomy Plan: Goals risk benefits of surgical debridement discussed, will make a counterincision on the leftmedial knee, placement of VAC vera flow after sonic 1 ultrasonic debridement, anticipate 7-day hospitalization and transition to a negative pressure wound therapy on an outpatient basis, begin yellow stripe edema wear today, micronized purified flavonoid fraction, he will bring 1 bottle to hospital for utilization during his hospitalization, begin on antibiotics, Augmentin 1 tablet twice daily until admission. He will contact his anticoagulation services, goal INR is approximately 2.0 for surgery, will maintain on Coumadin postoperatively given history of bilateral deep venous thrombosis, factor V deficiency, IVC filter. Micronutrients with Emily-C as a vitamin C, B12, B6, folate, vitamin D. We will add Boni 1 packet twice daily in the hospital. Until surgery on January 15, will have the patient irrigate the wound with hypochlorous acid 20 to 30 cc twice daily and packed with Nu Gauze moistened with hypochlorous acid. Preoperative consultation with his primary care physician. Uriel Nuñez MD on 01/09/2021 at 10:15 AM documented in this encounter Plan of Treatment Upcoming Encounters Date Type Specialty Care Team Description 05/20/2022 Lab Lab documented as of this encounter Procedures Procedure Name Priority Date/Time Associated Diagnosis Comme nts AEROBIC BACTERIAL Routine 01/09/2021 12:07 PM Res ults for this CULTURE ROUTINE CDT procedure ar e in the results section. ANAEROBIC BACTERIAL Routine 01/09/2021 12:07 PM R esults for this CULTURE ROUTINE CDT procedure ar e in the results section. documented in this encounter Results (ABNORMAL) Anaerobic bacterial culture (01/09/2021 12:07 PM CDT) [facility] Method Time Signature Culture 2+ Finegoldia JAMAAL 01/16/2021 [facility] magna (A) 10:37 AM CDT LABORATORY Comment: Susceptibilities not routinely done Culture 1+ Clostridium ramosum (A) 01/16/2021 10 :37 AM CDT [facility] LABORAT[facility] Comment: Susceptibilities not routinely done Specimen Anatomical Collection Method Collection Time Receive d Time (Source) Location / / Volume Laterality Wound STRUCTURE OF LEFT Non-blood 01/09/2021 12:07 2020 [facility] / Collection / PM CDT 12:08 PM CDT Unknown Unknown Uriel Nuñez MD LAB - MICRO GENERAL ORDERABL ES Performing Organization Address City/[facility]/ZIP [facility] Phon e Number [facility] LABORATORY [facility] [place] [id number] Diag. Lab [address] [facility], [address] [facility] Infectious [place], [place] [phone] Diseases Diagnostic [id number], [place] Lab (IDDL) [address] [facility], [address] (ABNORMAL) Wound Aerobic Bacterial Culture Routine with Gram Stain (01/09/2021 12:07 PM CDT) [facility] Method Time Signature Culture 2+ Normal saadia JAMAAL 01/12/2021 [facility] 8:03 AM CDT LABORATORY Gram Stain 2+ Gram positive 01/12/2021 [facility] Result cocci (A) 8:03 AM CDT LABORATORY Gram Stain 1+ Gram positive 01/12/2021 [facility] Result bacilli 8:03 AM CDT LABORATORY resembling diphtheroids (A) Gram Stain 1+ WBC seen (A) 01/12/2021 [facility] Result 8:03 AM CDT LABORATORY Specimen Anatomical Collection Method Collection Time Receive d Time (Source) Location / / Volume Laterality Wound STRUCTURE OF LEFT Non-blood 01/09/2021 12:07 2020 [place] / Collection / PM CDT 12:08 PM CDT Unknown Unknown Uriel Nuñez MD LAB - MICRO GENERAL ORDERABL ES Performing Organization Address City/[facility] Code Phon e Number [facility]AT[facility] [place] [phone] Diag. Lab [address] [facility], [address] [facility] Infectious [place], [place] [phone] Diseases Diagnostic [id number], [place] Lab (IDDL) [address] [facility], [address] documented in this encounter Visit Diagnoses Diagnosis Open knee wound, left, initial encounter documented in this encounter Care Teams Transportation Economics Teacher Relationship Specialty Start Date End Date Froylan Louise MD PCP - General Family Practice 02/22/14 Froylan Louise MD Assigned PCP 03/13/14 2 Nahomy, Esthela Conrad RN Personal Advocate & Liaison Family Medicine 10/16 (PAL) documented as of this encounter
--- OUTSIDE RECORDS SUMMARY | 2022-05-15 22:21 | XMS_ITS | Encounter Summary ---
:1955 Author Organization [place] Address [address] [place] [address]. [place] [address] Care Team Providers Name Role Phone Froylan Louise MD Primary Care Provider Unavailable Froylan Louise MD Unavailable Unavailable Esthela Corea RN Unavailable Unavailable Encounter Details Date Type Department Care Team Description 01/04/2021 Anticoagulation [facility], Chronic deep vein thrombosis (DVT) of lower extremity, unspecified laterality, unspecified vein (H) (Primary Dx); Therapy Visit Anticoagulation Shaniqua Hein RN [facility] current use of anticoagulant therapy Clinic [address] [place] [address] Social History Tobacco Use Types [...] or relatives? How often do you attend spiritism or Patient refused 2020 yarsani services? Do you belong to any clubs or Yes 05/25/2021 organizations such as spiritism groups, unions, fraternal or athletic groups, or [...] encounter Progress Notes Shaniqua Humphrey RN - 01/04/2021 2:43 PM CDT ANTICOAGULATION MANAGEMENT Virgil Christine 65 year old male is on warfarin with supratherapeutic INR result. (Goal INR 2.0-3.0) Recent labs: (last 7 days) 01/04/21 1357 INR 3.8* ASSESSMENT Source(s): Patient/Caregiver Call ??? Warfarin doses taken: Warfarin taken as instructed ??? Diet: No new diet changes identified ??? New illness, injury, or hospitalization: Ongoing knee wound and discomfort. Packing per Wound recs. ??? Medication/supplement changes: Wound MD recommended patient start taking Vitamin D3 10,000 iu per day. ??? Signs or symptoms of bleeding or clotting: No ??? Previous INR: Supratherapeutic ??? Additional findings: None PLAN Recommended plan for no diet, medication or health factor changes affecting INR Dosing Instructions: Hold today's dose and Decrease maintenance dose by 10% with next INR in 8 days Summary As of 01/04/2021 Full warfarin instructions: 01/04: Hold; Otherwise 5 mg every Mon, Wed, Fri; 7.5 mg all other days Next INR check: 01/12/2021 Telephone call with Virgil who verbalizes understanding [...] anticoagulation protocol Shaniqua Humphrey RN Anticoagulation Clinic 01/04/2021 Anticoagulation Episode Summary Current INR goal: 2.0-3.0 TTR: 71.6 % (12 mo) Target end date: Indefinite Send INR reminders to: [facility] [place] Indications Chronic deep vein thrombosis (DVT) of lower extremity unspecified laterality unspecified vein (H) [I82.509] Long-term (current) use of anticoagulants [Z79.01] [Z79.01] Comments: Anticoagulation Care Providers Provider Role Specialty Phone number Froylan Louise MD Referring Family Medicine [phone] documented in this encounter Plan of Treatment Upcoming Encounters Date Type Specialty Care Team Description 05/20/2022 Lab Lab documented as of this encounter Visit Diagnoses Diagnosis Chronic deep vein thrombosis (DVT) of lo wer extremity, unspecified laterality, unspecified vein (H) - [facility] current use of anticoagulant t herapy documented in this encounter Care Teams Marketing Designer Relationship Specialty Start Date End Date Froylan Louise MD PCP - General Family Practice 02/22/14 Froylan Louise MD Assigned PCP 03/13/14 2 Esthela Corea, RN Personal Advocate & Liaison Family Medicine 10/16 (PAL) documented as of this encounter
--- OUTSIDE RECORDS SUMMARY | 2022-05-15 22:21 | XMS_ITS | Encounter Summary ---
:1955 Author Organization [facility] Address [address] [place] [id number] Care Team Providers Name Role Phone Froylan Louise MD Primary Care Provider Unavailable Froylan Louise MD Unavailable Unavailable Esthela Corea RN Unavailable Unavailable Encounter Details Date Type Department Care Team Description 12/25/2020 Anticoagulation Therapy [facility] Audrey Louise Chronic deep vein thrombosis (DVT) of lower extremity, unspecified laterality, unspecified vein (H); Visit Clinic Chhaya Dubose MD shelter current use of ant icoagulant therapy [id number] [place] [address] Social History Tobacco Use Types [...] containing 4 or more times a w [place] 05/25/2021 alcohol? How many drinks containing alcohol [...] you attend yarsani or Patient refused 2020 cheondoism services? Do [...] encounter Progress Notes Diana Nielsen RN - 12/25/2020 1:49 PM CDT ANTICOAGULATION MANAGEMENT Virgil Christine 65 year old male is on warfarin with therapeutic INR result. (Goal INR 2.0-3.0) Recent labs: (last 7 days) 12/25/20 1344 INR 2.10* ASSESSMENT Source(s): Chart Review and Patient/Caregiver Call ??? Warfarin doses taken: Warfarin taken as instructed ??? Diet: No new diet changes identified ??? New illness, injury, or hospitalization: Yes: had spinal injection (held and bridging), no reduction in back pain ??? Medication/supplement changes: None noted ??? Signs or symptoms of bleeding or clotting: No ??? Previous INR: Therapeutic last 2(+) visits ??? Additional findings: states his knee laceration, from a fall about 3 weeks ago, is still open and painful. Having product specialist take a look at it while in clinic today for lab/bp check. PLAN Recommended plan for no diet, medication or health factor changes affecting INR Dosing Instructions: Continue your current warfarin dose with next INR in 1 day. Continue to bridge with Lovenox daily until INR therapeutic tomorrow (2 therapeutic readings 24 hours apart, or over 2.3) Summary As of 12/25/2020 Full warfarin instructions: 5 mg every Wed; 7.5 mg all other days Next INR check: 12/26/2020 Telephone call with Virgil who verbalizes understanding and agrees to plan Lab visit scheduled Education provided: Please call back if any changes to your diet, medications or how you've been taking warfarin, Importance of therapeutic range, Importance of following up for INR monitoring at instructed interval, Importance of taking warfarin as instructed, Monitoring for bleeding signs and symptoms, Monitoring for clotting signs and symptoms and Lovenox/Heparin education provided: prescribed dose and frequency Plan made per [facility] anticoagulation protocol Diana Nielsen RN Anticoagulation Clinic 12/25/2020 Anticoagulation Episode Summary Current INR goal: 2.0-3.0 TTR: 70.5 % (1 y) Target end date: Indefinite Send INR reminders to: [facility] Indications Chronic deep vein thrombosis (DVT) of lower extremity unspecified laterality unspecified vein (H) [I82.509] Long-term (current) use of anticoagulants [Z79.01] [Z79.01] Comments: Anticoagulation Care Providers Provider Role Specialty Phone number Froylan Louise MD Referring Family Medicine [phone] documented in this encounter Plan of Treatment Upcoming Encounters Date Type Specialty Care Team Description 05/20/2022 Lab Lab documented as of this encounter Visit Diagnoses Diagnosis Chronic deep vein thrombosis (DVT) of lo wer extremity, unspecified laterality, unspecified vein (H) shelter current use of anticoagulant t herapy documented in this encounter Care Teams Jewellery Designer Relationship Specialty Start Date End Date Froylan Louise MD PCP - General Family Practice 02/22/14 Froylan Louise MD Assigned PCP 03/13/14 2 Esthela Corea, RN Personal Advocate & Liaison Family Medicine 10/16 ([facility]) documented as of this encounter
--- OUTSIDE RECORDS SUMMARY | 2022-05-15 22:21 | XMS_ITS | Encounter Summary ---
:1955 Author Organization [place] Address [facility] [place] [address] Care Team Providers Name Role Phone Froylan Louise MD Primary Care Provider Unavailable Froylan Louise MD Unavailable Unavailable Esthela Corea RN Unavailable Unavailable Reason for Referral Consultation (Routine) - Closed Specialty Diagnoses / Procedures Referred By Contact Refer red To Contact Wound Care Diagnoses Open knee wound, left, initial encounter Quincy Carvalho PA-C [facility] [address] [place] [address] [place] [address] Fax: Referral ID Status Reason Start Date Expiration Date Visits Requ ested Visits Authorized [id number] Closed 12/25/2020 12/25/2021 1 1 Reason for Visit Reason Comments Wound Check Encounter Details Date Type Department Care Team Description 12/25/2020 Emergency [facility] Quincy Carvalho PA-C Open knee wound, left, [facility] Emergency Dep t [facility] initial encounter [address] [place], [place] [address] [place] [address] [place] [address] (Wo rk) Social History Tobacco Use Types [...] containing 4 or more times a w [place] 05/25/2021 alcohol? How many drinks containing [...] you attend islam or Patient refused 2020 sabianist services? Do you belong to any clubs [...] Sign Reading Time Taken Comments Blood Pressure 153/85 12/25/2020 6:00 PM CDT Pulse 69 12/25/2020 6:00 PM CDT Temperature 36.5 ??C (97.7 ??F) 12/25/2020 2:57 PM CDT Respiratory Rate 16 12/25/2020 2:57 PM CDT Oxygen Saturation 98% 12/25/2020 6:00 PM CDT Inhaled Oxygen Concentration - - Weight 113.4 kg (250 lb) 12/25/2020 2:57 PM CDT Height 182.9 cm (6') 12/25/2020 2:57 PM CDT Body Mass Index 33.91 12/25/2020 2:57 PM CDT documented in this encounter Discharge Instructions Discharge InstructionsStQuincy elizondo PA-C - 12/25/2020 6:52 PM CDT Change dressing daily with ointment and bandage and CHASE wrap overlying until seen by wound. documented in this encounter Medications at Time of Discharge Medication Sig Dispensed Refills Start Date End Date Acetaminophen (TYLENOL 8 Take 1,000 mg by 0 HOUR PO) mouth 2 times daily (2 X 500 mg) fish oil-omega-3 fatty Take 2 g by mouth 0 acids 1000 MG capsule every morning warfarin ANTICOAGULANT Take 1 tablet (5 30 tablet 1 021 (COUMADIN) 5 MG mg) every tabletIndications: Acute Friday deep vein thrombosis (DVT) of proximal vein of both lower extremities (H), shelter current use of anticoagulants with INR goal of 2.0-3.0 albuterol (PROAIR Inhale 2 puffs 3 Inhaler 3 05/26/2020 HFA/PROVENTIL HFA/VENTOLIN into the lungs HFA) 108 (90 Base) MCG/ACT every 6 hours as inhaler needed for shortness of breath / dyspnea or wheezing atorvastatin (LIPITOR) 20 Take 1 tablet (20 90 tablet 3 01/02/2021 MG tabletIndications: mg) by mouth daily Hyperlipidemia LDL goal <130 cyclobenzaprine (FLEXERIL) Take 1 tablet (10 20 tablet 0 01/02/2021 10 MG tabletIndications: mg) by mouth At Back muscle spasm Bedtime enoxaparin ANTICOAGULANT Inject 0.4 mLs (40 2.4 mL 1 08/202001/10/2021 (LOVENOX) 40 MG/0.4ML mg) Subcutaneous syringeIndications: daily Hold day of Chronic deep vein procedure. 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 Then current use of continue daily anticoagulant therapy injections until INR 2.3 or higher (or >2.0 twice, 24 hours apart). Xtpbodfzcar-Dwnsljdbi-Qpma Inhale 1 puff into 1 Inhaler 11 1 07/27/2019 01/12/2021 nterol (TRELEGY ELLIPTA) the lungs daily 100-62.5-25 MCG/INH oral inhalerIndications: Moderate persistent asthma without complication hydrochlorothiazide Take 1 tablet (25 90 tablet [...] by 0 01/12/2021 (MULTI-VITAMIN) tablet mouth daily sildenafil (VIAGRA) 50 MG Take 0.5-1 tablets [...] (KENALOG) APPLY TO AFFECTED 30 g 1 10/2601/09/2021 0.1 % external AREA TWICE A DAY creamIndications: Lichen planus warfarin ANTICOAGULANT TAKE 5MG TABLET ON 80 [...] FOR SLEEP documented as of this encounter ED Notes Virgil Elizabeth MD - 12/25/2020 6:35 PM CDT Emergency Department Attending Supervision Note I evaluated this patient with Deven CASTANON. Briefly, the patient presented for evaluation of poorly healing excoriation to the left knee. Exam shows open wound without erythema, warmth, or purulent drainage. Epidermis has been lost and there is a small amount of venous bleeding with flexion/extension of the knee. Suspect delayed healing due to a nticoagulated status and high tension site. Plan bacitracin, gelfoam, and orthopedic followup for recheck. Return precautions for pain, redness, fever, or any other concerns. In summary, my impression is: ICD-10-CM 1. Open knee wound, left, initial encounter S81.002A Virgil Elizabeth MD [facility] Emergency Department Virgil Elizabeth MD 12/25/20 4448 Cheryl Busby RN - 12/25/2020 6:09 PM CDT Pt ambulatory to the bathroom, back in bed at this time Cheryl Busby RN - 12/25/2020 5:22 PM CDT Checked on pt, resting in bed, reports improvement in back pain, no needs. Lights dimmed Cheryl Busby RN - 12/25/2020 4:40 PM CDT Pt has been to and from xray, c/o back pain upon return, will notify MD. YT Cheryl Busby RN - 12/25/2020 4:13 PM CDT IV placed, blood cultures X2 drawn and sent, labs sent, NS bolus started Jessica Jiménez RN - 12/25/2020 2:55 PM CDT Patient reports wound left knee that occurred when he fell 3 weeks ago while chasing the dog in the rain. Seen today at [facility] and referred to ED for evaluation of wound. Patient denies fever/chills. Wound not visualized in triage. Quincy Carvalho PA-C - 12/25/2020 2:40 PM CDT Images from the original note were not included. History Chief Complaint: Wound Check HPI Virgil Christine is a 65 year old male on Warfarin with history of coagulation disorder, DVT, hypertension, and hyperlipidemia who presents with a left knee injury. The patient states that about 3 weeks ago he was chasing dogs in the rain when he fell on his left knee. He does not report pain on his left knee, and is able to move his leg freely. The wound is still bleeding and is itchy. The patient did have an xray of the site done about 2 weeks ago. He also has DVT in both legs. He denies fever, chills, chest pain, and shortness of breath. Review of Systems Constitutional: Negative for chills and fever. Respiratory: Negative for shortness of breath. Cardiovascular: Negative for chest pain. Skin: Positive for wound (left knee). All other systems reviewed and are negative. Allergies: The patient does not have any allergies Medications: Albuterol Atorvastatin Cyclobenzaprine Enoxaparin Wouuzcopgje-pcttavmup-givqomebdq Hydrochlorothiazide Loperamide Sildenafil Terazosin Triamcinolone Warfarin Zolpidem Past Medical History: Antithrombotic long-term use Arthritis Coagulation disorder COPD DVT Factor V deficiency Hypertension Sleep apnea Ulcerative colitis Asthma Hemorrhoids Varicose veins Anal fistula Anal stenosis Postthrombotic syndrome Hyperlipidemia Peripheral edema Past Surgical History: Arthroplasty, knee Colectomy Colostomy Orthopedic surgery Pouchoscopy Resection abdominal perineal Family History: Mother: diabetes Social History: The patient presents to the ED alone Physical Exam Patient Vitals for the past 24 hrs: BP Temp Temp src Pulse Resp SpO2 Height Weight 12/25/20 1800 (!) 153/85 -- -- 69 -- 98 % -- -- 12/25/20 1745 (!) 160/92 -- -- 78 -- 97 % -- -- 12/25/20 1730 (!) 147/80 -- -- 71 -- 94 % -- -- 12/25/20 1715 139/83 -- -- 72 -- 97 % -- -- 12/25/20 1700 135/84 -- -- 67 -- 93 % -- -- 12/25/20 1645 (!) 141/83 -- -- 70 -- 96 % -- -- 12/25/20 1635 (!) 145/87 -- -- 71 -- 98 % -- -- 12/25/20 1615 (!) 146/86 -- -- 69 -- 94 % -- -- 12/25/20 1600 (!) 150/89 -- -- -- -- -- -- -- 12/25/20 1457 (!) 163/96 97.7 ??F (36.5 ??C) Temporal 77 16 96 % 1.829 m (6') 113.4 kg (250 lb) Physical Exam Constitutional: Pleasant. Cooperative. Eyes: Pupils equally round and reactive HENT: Head is normal in appearance. Oropharynx is normal with moist mucus membranes. Cardiovascular: Regular rate and rhythm and without murmurs. Respiratory: Normal respiratory effort, lungs are clear bilaterally. Musculoskeletal: No asymmetry of the lower extremities. Full ROM of lower extremities. 5/5 strength to lower extremities distally. 2+ DP pulses. Skin: Very mild erythema surrounding chronic appearing wound to left knee. Serosanguinous fluid is able to be milked out. No warmth. Eschar present over wound. No purulence. Neurologic: Cranial nerves grossly intact, normal cognition, no focal deficits. Alert and oriented x3. Psychiatric: Normal affect. Nursing notes and vital signs reviewed. Emergency Department Course Imaging: XR Knee Left 3 Views Final Result FINDINGS: There is an open wound anterior to the patella with underlying soft tissue fullness. No fracture, effusion or calcified intra-articular body. The bones, joint spaces and alignment appear normal. Laboratory: Labs Ordered and Resulted from Time of ED Arrival Up to the Time of Departure from the ED CBC WITH PLATELETS DIFFERENTIAL - Abnormal; Notable for the following components: Result Value RBC Count 4.36 (*) All other components within normal limits CRP INFLAMMATION - Abnormal; Notable for the following components: CRP Inflammation 24.9 (*) All other components within normal limits INR - Abnormal; Notable for the following components: INR 1.68 (*) All other components within normal limits BASIC METABOLIC PANEL LACTIC ACID WHOLE BLOOD ERYTHROCYTE SEDIMENTATION RATE AUTO BLOOD CULTURE BLOOD CULTURE Emergency Department Course: Reviewed: I reviewed nursing notes, vitals, past medical history and care everywhere Assessments: 1520 I obtained history and examined the patient as noted above. I rechecked the patient and explained findings. Disposition: The patient was discharged to home. Impression & Plan Medical Decision Making: Virgil Christine is a 65 year old male who presents to the ED for evaluation of a left knee injury. Patient is anticoagulated given history of DVT. He has had now chronic appearing wound to left knee whichis failing to heal. Patient notes that there appeared to be a bubble coming up from the wound earlier today which he picked, and has since then had fluid coming from the wound. See HPI as above for additional details. Vitals and physical exam as above. Lab work and imaging obtained as above. No leukocytosis. Lactic acid is negative. Inflammatory markers are reassuring, with CRP only trivially elevated. X-ray without evidence for acute bony abnormality. Suspect resolving hematoma fluid coming from wound. Advised patient to stop picking at wound. Doubt infection at this time given reassuring vital signs and work up. Wound care is provided here in the ED, and will also submit order for wound cares for home. Patient notes having chronic wound in the past to his other lower extremity which required wound care. He denies any history of diabetes. [place] patient was safe for discharged home with close outpatient follow-up. Discussed reasons to return. All questions answered. Patient discharged to home in stable condition. Patient to follow up with clinic regarding INR. Diagnosis: ICD-10-CM 1. Open knee wound, left, initial encounter S81.002A WOUND CARE REFERRAL Discharge Medications: None Scribe Disclosure: I, Uriel Laureano, am serving as a scribe at 3:15 PM on 12/25/2020 to document services personally performed by Quincy Carvalho PA-C based on my observations and the provider's statements to me. This record was created at least in part using electronic voice recognition software, so please excuse any typographical errors. Quincy Carvalho PA-C 12/25/20 193 documented in this encounter Plan of Treatment Upcoming Encounters Date Type Specialty Care Team Description 05/20/2022 Lab Lab Scheduled Referrals Name Type Priority Associated Diagnoses Order S chedule WOUND CARE REFERRAL Referral Routine Open knee wound, left , Expected: 12/26/2020 initial encounter (Approxima kaleigh), Expires: 2021 documented as of this encounter Procedures Procedure Name Priority Date/Time Associated Comments Diagnosis XR KNEE LEFT 3 VIEWS STAT 12/25/2020 4:29 PM R esults for this CDT procedure are i n the results section. BLOOD CULTURE STAT 12/25/2020 4:05 PM Open knee wound, Resu lts for this CDT left, initial procedure are in encounter the results section. CBC WITH PLATELETS & STAT 12/25/2020 3:39 PM R esults for this DIFFERENTIAL CDT procedure are i n the results section. INR Routine 12/25/2020 3:39 PM Results f or this CDT procedure are i n the results section. LACTIC ACID WHOLE STAT 12/25/2020 3:39 PM Resu lts for this BLOOD CDT procedure are i n the results section. ERYTHROCYTE STAT 12/25/2020 3:39 PM Results f or this SEDIMENTATION RATE CDT procedure are in AUTO the results section. CRP INFLAMMATION STAT 12/25/2020 3:39 PM Resul ts for this CDT procedure are i n the results section. BLOOD CULTURE STAT 12/25/2020 3:39 PM Open knee wound, Resu lts for this CDT left, initial procedure are in encounter the results section. BASIC METABOLIC PANEL STAT 12/25/2020 3:39 PM Results for this CDT procedure are i n the results section. documented in this encounter Results XR Knee Left 3 Views (12/25/2020 4:29 PM CDT) Anatomical Region Laterality Modality Thigh, Knee, Leg Left Digital Radiography Specimen (Source) Anatomical Location Collection Method / Collectio n Time Received Time / Laterality Volume Narrative 12/25/2020 5:55 PM CDT KNEE LEFT THREE VIEWS ?? 12/25/2020 4:29 PM HISTORY: ??Wound overlying patella follo wing injury about four weeks ago, non-healing, leaking fluid. FINDINGS: There is an open wound anterio r to the patella with underlying soft tissue fullness. No frac ture, effusion or calcified intra-articular body. The bones, joint s paces and alignment appear normal. PREM DECKER MD SYSTEM ID: [id number] Procedure Note Prem Decker MD - 12/25/2020Form atting of this note might be different from the original. KNEE LEFT THREE VIEWS 12/25/2020 4:29 PM HISTORY: Wound overlying patella followi ng injury about four weeks ago, non-healing, leaking fluid. FINDINGS: There is an open wound anterio r to the patella with underlying soft tissue fullness. No frac ture, effusion or calcified intra-articular body. The bones, joint s paces and alignment appear normal. PREM DECKER MD SYSTEM ID: [id number] Quincy Carvalho PA-C IMG DIAGNOSTIC IMAGING ORDER SADIQ Blood Culture (12/25/2020 4:05 PM CDT) [facility] gist Method Time Signature Specimen Blood INFECTIOUS Description Right DISEASES Wrist DIAGNOSTIC LABORATORY, [facility] Culture Micro No growth 12/31/2020 INFECTIOUS 1:05 AM CDT DISEASES DIAGNOSTIC LABORATORY, [facility] Specimen Anatomical Collection Method Collection Time Receive d Time (Source) Location / / Volume Laterality Blood specimen 12/25/2020 4:05 PM 021 4:14 (specimen) CDT PM CDT Comment: Right~Wrist Quincy SUBRAMANIANC LAB - MICRO GENERAL ORDERABL ES Performing Organization Address City/State/ZIP Code Phon e Number INFECTIOUS DISEASES DIAGNOSTIC [address] [facility] [address] LABORATORY, [facility] (ABNORMAL) INR (12/25/2020 3:39 PM CDT) P athologist Signature INR 1.68 (H) 0.86 - 1.14 12/25/2020 [place] 6:14 PM CDT [facility] Specimen Anatomical Collection Method Collection Time Receive d Time (Source) Location / / Volume Laterality 12/25/2020 3:39 PM 3:58 CDT PM CDT Quincy [address]-C LAB - BLOOD ORDERABLES Performing Organization Address City/State/ZIP Code Phon e Number [facility] [address] [place], [place] [address] [facility] [address] [place], [place] [address], [facility] [phone] Blood Culture (12/25/2020 3:39 PM CDT) [facility] Method Time Signature Specimen Blood INFECTIOUS Description Right Arm DISEASES DIAGNOSTIC LABORATORY, [facility] Culture Micro No growth 12/31/2020 INFECTIOUS 1:05 AM CDT DISEASES DIAGNOSTIC LABORATORY, [facility] Specimen Anatomical Collection Method Collection Time Receive d Time (Source) Location / / Volume Laterality Blood specimen 12/25/2020 3:39 PM 021 4:00 (specimen) CDT PM CDT Comment: Right Arm Quincy Carvalho PA-C LAB - MICRO GENERAL ORDERABL ES Performing Organization Address [facility]/ZIP Code Phon e Number INFECTIOUS DISEASES DIAGNOSTIC [address] [facility] [address] LABORATORY, [facility] Erythrocyte sedimentation rate auto (12/25/2020 3:39 PM CDT) P athologist Signature Sed Rate 19 0 - 20 mm/h 12/25/2020 [facility] 4:46 PM CDT [facility] Specimen Anatomical Collection Method Collection Time Receive d Time (Source) Location / / Volume Laterality Blood 12/25/2020 3:39 PM 3:58 CDT PM CDT Quincy SUBRAMANIANC LAB - BLOOD ORDERABLES Performing Organization Address [facility] Phon e Number [facility] [address], [place] [address] [facility] [address] [place], [place] [address], [facility] [phone] (ABNORMAL) CRP inflammation (12/25/2020 3:39 PM CDT) [facility] Method Time Signature CRP Inflammation 24.9 (H) 0.0 - 8.0 12/25/2020 [place] mg/L 4:17 PM CDT [facility] Specimen Anatomical Collection Method Collection Time Receive d Time (Source) Location / / Volume Laterality Blood 12/25/2020 3:39 PM 1 3:58 CDT PM CDT Quincy Carvalho PA-C LAB - BLOOD ORDERABLES Performing Organization Address City/[facility]/ZIP Code Phon e Number [facility] [address], [place] [address] [facility] [address] [place], [place] [address], [facility] [phone] Lactic acid whole blood (12/25/2020 3:39 PM CDT) athologist Signature Lactic Acid 1.6 0.7 - 2.0 12/25/2020 [place] mmol/L 4:03 PM [facility] Specimen Anatomical Collection Method Collection Time Receive d Time (Source) Location / / Volume Laterality Blood 12/25/2020 3:39 PM 3:59 CDT PM CDT Quincy Carvalho PA-C LAB - BLOOD ORDERABLES Performing Organization Address City/[facility] Phon e Number [facility] [address], [place] [address] [facility] [address] [place], [place] [address], [facility] [phone] Basic metabolic panel (12/25/2020 3:39 PM CDT) athologist Signature Sodium 137 133 - 144 12/25/2020 [place] mmol/L 4:12 PM [facility] Potassium 3.5 3.4 - 5.3 12/25/2020 [facility] mmol/L 4:12 PM [facility] Chloride 105 94 - 109 12/25/2020 [facility] mmol/L 4:12 PM [facility] Carbon Dioxide 27 20 - 32 12/25/2020 [place] mmol/L 4:17 PM [facility] Anion Gap 5 3 - 14 12/25/2020 [place] mmol/L 4:17 PM [facility] Glucose 98 70 - 99 12/25/2020 [place] mg/dL 4:17 PM [facility] Urea Nitrogen 17 7 - 30 12/25/2020 [place] mg/dL 4:17 PM [facility] Creatinine 0.89 0.66 - 12/25/2020 [place] 1.25 mg/dL 4:17 PM [facility] GFR Estimate >90 >60 12/25/2020 [place] mL/min/{1. 4:17 PM [facility] 73_m2} [facility] Comment: Non GFR Calc Starting 06/09/2018, serum creatinine ba sed estimated GFR (eGFR) will be calculated using the Chronic Kidney Dise [facility] Epidemiology Collaboration (CKD-EPI) equation. GFR Estimate If >90 >60 mL/min/{1.73_m2} 12/25/2020 4: 17 PM [facility] Comment: GFR Calc Starting 06/09/2018, serum creatinine ba sed estimated GFR (eGFR) will be calculated using the Chronic Kidney Dise [facility] Epidemiology Collaboration (CKD-EPI) equation. Calcium 9.0 8.5 - 10.1 mg/dL 12/25/2020 4:17 PM [facility] Specimen Anatomical Collection Method Collection Time Receive d Time (Source) Location / / Volume Laterality Blood 12/25/2020 3:39 PM 3:58 CDT PM CDT Quincy Carvalho PA-C LAB - BLOOD ORDERABLES Performing Organization Address City/State/ZIP Code Phon e Number [place] [address] [address] [place] [address] [phone] (ABNORMAL) CBC with platelets differential (12/25/2020 3:39 PM CDT) [facility] Method Time Signature WBC 8.4 4.0 - 12/25/2020 [facility] 11.0 4:16 PM [facility] 10e9/L [facility] RBC Count 4.36 (L) 4.4 - 5.9 12/25/2020 [place] 10e12/L 4:16 PM [facility] Hemoglobin 13.5 13.3 - 12/25/2020 [place] 17.7 g/dL 4:16 PM [facility] Hematocrit 41.2 40.0 - 12/25/2020 [facility] 53.0 % 4:16 PM [facility] MCV 95 78 - 100 12/25/2020 [facility] fl 4:16 PM [facility] MCH 31.0 26.5 - 12/25/2020 [facility] 33.0 pg 4:16 PM [facility] MCHC 32.8 31.5 - 12/25/2020 [facility] 36.5 g/dL 4:16 PM [facility] RDW 14.2 10.0 - 12/25/2020 [facility] 15.0 % 4:16 PM [facility] Platelet Count 216 150 - 450 12/25/2020 [facility] 10e9/L 4:16 PM [facility] Diff Method Automated 12/25/2020 [facility] Method 4:16 PM [facility] % Neutrophils 77.2 % 12/25/2020 [facility] 4:16 PM [facility] % Lymphocytes 15.2 % 12/25/2020 [facility] 4:16 PM [facility] % Monocytes 5.6 % 12/25/2020 [facility] 4:16 PM [facility] % Eosinophils 1.3 % 12/25/2020 [facility] 4:16 PM [facility] % Basophils 0.2 % 12/25/2020 [facility] 4:16 PM [facility] % Immature 0.5 % 12/25/2020 [facility] Granulocytes 4:16 PM [facility] Nucleated RBCs 0 0 /100 12/25/2020 [facility] 4:16 PM [facility] Absolute 6.5 1.6 - 8.3 12/25/2020 [facility] Neutrophil 10e9/L 4:16 PM [facility] Absolute 1.3 0.8 - 5.3 12/25/2020 [facility] Lymphocytes 10e9/L 4:16 PM [facility] Absolute 0.5 0.0 - 1.3 12/25/2020 [facility] Monocytes 10e9/L 4:16 [facility] Absolute 0.1 0.0 - 0.7 12/25/2020 [facility] Eosinophils 10e9/L 4:16 PM [facility] Absolute 0.0 0.0 - 0.2 12/25/2020 [facility] Basophils 10e9/L 4:16 PM [facility] Abs Immature 0.0 0 - 0.4 12/25/2020 [place] Granulocytes 10e9/L 4:16 PM [facility] Absolute 0.0 12/25/2020 [place] Nucleated RBC 4:16 PM [facility] Specimen Anatomical Collection Method Collection Time Receive d Time (Source) Location / / Volume Laterality Blood 12/25/2020 3:39 PM 3:58 CDT PM CDT Quincy Carvalho PA-C LAB - BLOOD ORDERABLES Performing Organization Address City/State/ZIP Code Phon e Number [place] [address], [place] [address] [facility] [address] [place], [place] [address] [place] [address] documented in this encounter Visit Diagnoses Diagnosis Open knee wound, left, initial encounter documented in this encounter Administered Medications Inactive Administered Medications - up to 3 most recent administrations Medication Order MAR Action Action Date Dose Rate Site 0.9% sodium chloride BOLUS Rate/Dose Change 12/25/2020 4:00 PM 1000 mL/hr Intravenous, 1,000 mL, CDT ONCE, at 1,000 mL/hr, Administer over 1 Hours, On Fri12/25/20 at 1525, For 1 dose sodium chloride 0.9% infusion at 125 mL/hr, Intravenous, CONTINUOUS, A dminister after the bolus., Starting on Fri12/25/20 at 1625, Until Fri12/25/20 at 2103 documented in this encounter Active and Recently Administered Medications Times are shown in CDT. Scheduled Medication Order 12/23/2020 12/24/2020 12/25/2020 0.9% sodium chloride BOLUS 1530 (Canceled Entry - Provider: Cheryl Busby RN)1600 (Rate/Dose Change - Provider: Cheryl Busby RN)1719 (Stopped - Provider: Cheryl Busby RN) Intravenous, 1,000 mL, ONCE, at 1,000 mL /hr, Administer over 1 Hours, Fri12/25/20 at 1525, For 1 dose Continuous Medication Order 12/23/2020 12/24/202012/2512/25/2020 sodium chloride 0.9% infusion 16 25 (Canceled Entry - Provider: Orders Generic Provider - Comment: Automatically canceled at discontinue of medication order) at 125 mL/hr, Intravenous, CONTINUOUS, A dminister after the bolus., Starting Fri12/25/20 at 1625, Until Fri12/25/20 at 2103 documented in this encounter Care Teams Chief Electrician Relationship Specialty Start Date End Date Froylan Louise MD PCP - General Family Practice 02/22/14 Froylan Louise MD Assigned PCP 03/13/14 2 Esthela Corea, RN Personal Advocate & Liaison Family Medicine 10/16 (PAL) documented as of this encounter
--- OUTSIDE RECORDS SUMMARY | 2022-05-15 22:21 | XMS_ITS | Encounter Summary ---
:1955 Author Organization [place] Address [address] [place] [address] Care Team Providers Name Role Phone Froylan Louise MD Primary Care Provider Unavailable Froylan Louise MD Unavailable Unavailable Esthela Corea RN Unavailable Unavailable Encounter Details Date Type Department Care Team Description 12/28/2020 Travel Social History Tobacco Use Types Packs/Day Years Used Date Smoking Tobacco: Former Cigarettes 2 25 Quit : 08/04/2006 Smokeless Tobacco: Never Comments: 2004 Alcohol Use Standard Drinks/Week Comments Yes 0 (1 standard drink = 0.6 oz pure alcoho l) 4 BEERS A WEEK Alcohol Habits Answer Date Recorded How often do you have a drink containing 4 or more times a w [place] 05/25/2021 alcohol? How many drinks containing alcohol [...] you attend sabianist or Patient refused 2020 mormonism services? Do [...] on filedocumented in this encounter Care Teams Keypunch Operators Supervisor Relationship Specialty Start Date End Date Froylan Louise MD PCP - General Family Practice 02/22/14 Froylan Louise MD Assigned PCP 03/13/14 2 Esthela Corea, RN Personal Advocate & Liaison Family Medicine 10/16 (PAL) documented as of this encounter
--- OUTSIDE RECORDS SUMMARY | 2022-05-15 22:21 | XMS_ITS | Encounter Summary ---
:1955 Author Organization [place] Address [address] [place] [address] Care Team Providers Name Role Phone Froylan Louise MD Primary Care Provider Unavailable Froylan Louise MD Unavailable Unavailable Esthela Corea RN Unavailable Unavailable Encounter Details Date Type Department Care Team Description 01/04/2021 Travel Social History Tobacco Use Types Packs/Day Years Used Date Smoking Tobacco: Former Cigarettes 2 25 Quit : 08/04/2006 Smokeless Tobacco: Never Comments: 2004 Alcohol Use Standard Drinks/Week Comments Yes 0 (1 standard drink = 0.6 oz pure alcoho l) 4 BEERS A WEEK Alcohol Habits Answer Date Recorded How often do you have a drink containing 4 or more times a w [place] 05/25/2021 alcohol? How many drinks containing alcohol [...] you attend episcopal or Patient refused 2020 religion services? Do [...] on filedocumented in this encounter Care Teams Photoengraver Apprentice Relationship Specialty Start Date End Date Froylan Louise MD PCP - General Family Practice 02/22/14 Froylan Louise MD Assigned PCP 03/13/14 2 Esthela Corea, RN Personal Advocate & Liaison Family Medicine 10/16 (PAL) documented as of this encounter
--- OUTSIDE RECORDS SUMMARY | 2022-05-15 22:21 | XMS_ITS | Encounter Summary ---
:1955 Author Organization [facility] Address [address] [place] [address] Care Team Providers Name Role Phone Froylan Louise MD Primary Care Provider Unavailable Froylan Louise MD Unavailable Unavailable Esthela Corea RN Unavailable Unavailable Encounter Details Date Type Department Care Team Description 12/25/2020 Travel Social History Tobacco Use Types Packs/Day [...] you attend episcopalian or Patient refused 2020 methodist services? Do [...] on filedocumented in this encounter Care Teams Bulk Plant Operator Relationship Specialty Start Date End Date Froylan Louise MD PCP - General Family Practice 02/22/14 Froylan Louise MD Assigned PCP 03/13/14 2 Esthela Corea, RN Personal Advocate & Liaison Family Medicine 10/16 (PAL) documented as of this encounter
--- OUTSIDE RECORDS SUMMARY | 2022-05-15 22:21 | XMS_ITS | Encounter Summary ---
:1955 Author Organization [facility] Address [address] [place] [address] Care Team Providers Name Role Phone Froylan Louise MD Primary Care Provider Unavailable Froylan Louise MD Unavailable Unavailable Esthela Corea RN Unavailable Unavailable Reason for Visit Reason Comments Medication Refill Encounter Details Date Type Department Care Team Description 01/09/2021 Refill [facility] Froylan Louise Ra, MD Medication Refill [address] [address] Social History Tobacco Use [...] containing 4 or more times a w [place] pass 05/25/2021 alcohol? How many drinks containing alcohol [...] you attend sabianism or Patient refused 2020 baptist services? Do [...] Telephone Encounter - Herve Gallardo RN - 01/09/2021 10:14 AM CDT Prescription approved per [facility] Refill Protocol. Herve Gallardo RN documented in this encounter Plan of Treatment Upcoming Encounters Date Type Specialty Care Team Description 05/20/2022 Lab Lab documented as of this encounter Visit Diagnoses Diagnosis Lichen planus documented in this encounter Care Teams Warehouse Worker 2Nd Shift Relationship Specialty Start Date End Date Froylan Louise MD PCP - General Family Practice 02/22/14 Froylan Louise MD Assigned PCP 03/13/14 2 Esthela Corea RN Personal Advocate & Liaison Family Medicine 10/16 (PAL) documented as of this encounter
--- OUTSIDE RECORDS SUMMARY | 2022-05-15 22:21 | XMS_ITS | Encounter Summary ---
:1955 Author Organization [facility] Address [address] [place] [address] Care Team Providers Name Role Phone Froylan Louise MD Primary Care Provider Unavailable Froylan Louise MD Unavailable Unavailable Esthela Corea RN Unavailable Unavailable Reason for Visit Reason Onset Date Comments Anticoagulation 12/26/2020 ED visit f/u Encounter Details Date Type Department Care Team Description 12/26/2020 Telephone [facility] Froylan Louise (ED visit Clinic Chhaya Dubose MD f/u) [address] [place] [address] Social History Tobacco Use Types [...] containing 4 or more times a w [place] 05/25/2021 alcohol? How many drinks containing alcohol [...] you attend confucianism or Patient refused 2020 temple services? Do you belong to any clubs [...] Telephone Encounter - Diana Nielsen RN - 12/26/2020 11:18 AM CDT Virgil returned call. He will continue bridging, boost today's warfarin to 12.5 mg, tomorrow he'll take 5 mg and then recheck INR /02/10. He states his knee is already starting to look better with the bacitracin ointment. Keeping it clean and wrapped. Will be following with Wound Clinic. Diana Mukherjee RN Anticoagulation Team Telephone Encounter - Diana Nielsen RN - 12/26/2020 8:38 AM CDT ANTICOAGULATION MANAGEMENT: Discharge Review Virgil Christine chart reviewed for anticoagulation continuity of care Emergency room visit on 12/25/20 for wound check, left knee. Discharge disposition: Home Results: Recent labs: (last 7 days) 12/25/20 1344 12/25/20 1539 INR 2.10* 1.68* Anticoagulation inpatient management: not applicable Anticoagulation discharge instructions: Warfarin dosing: home regimen continued and advised to f/u subtherapeutic INR with Anticoag Clinic Bridging: bridging with enoxaparin (Lovenox), has been doing this since holding for spinal injection (not ordered in ED) INR goal change: No Medication changes affecting anticoagulation: No Additional factors affecting anticoagulation: No Plan Recommend to check INR on 12/28/20 Recommend to adjust dose to 12.5 mg to boost today, continue Lovenox bridging Left a detailed message for Virgil wick to call [phone]. Can transfer to Diana at [phone]. 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
--- OUTSIDE RECORDS SUMMARY | 2022-05-15 22:21 | XMS_ITS | Encounter Summary ---
:1955 Author Organization [place] Address [facility] [place] [address] Care Team Providers Name Role Phone Froylan Louise MD Primary Care Provider Unavailable Froylan Louise MD Unavailable Unavailable Esthela Corea RN Unavailable Unavailable Encounter Details Date Type Department Care Team Description 01/02/2021 [facility] Maggie Kruger Anticoagulation Clin ic RN [address] [place], [place] [phone] Social History Tobacco Use Types Packs/Day Years Used Date Smoking Tobacco: Former Cigarettes 2 25 Quit : 08/04/2006 Smokeless Tobacco: Never Comments: 2004 Alcohol Use Standard Drinks/Week Comments Yes 0 (1 standard drink = 0.6 oz pure alcoho l) 4 BEERS A WEEK Alcohol Habits Answer Date Recorded How often do you have a drink containing 4 or more times a w [place] 05/25/2021 alcohol? How many drinks containing alcohol [...] you attend anabaptism or Patient refused 2020 hoahaoism services? Do [...] this encounter Miscellaneous Notes Telephone Encounter - Beckie Edgar RN - 01/02/2021 5:38 PM CDT Called patient. Instructed him to take 7.5 mg today and 5 mg tomorrow. Recheck as planned. Beckie Edgar RN on 01/02/2021 at 5:39 PM Telephone Encounter - Maggie Kruger RN - 01/02/2021 5:26 PM CDT 4:40 Patient left a VM. Seen at wound clinic today. Wound is clean and labs are normal. Patient will not be on antibiotics. Patient took 1/2 pill last night. Should he take the full dose tonight? Call back [phone]. Maggie Kruger RN, BSN, PHN Anticoagulation Clinic [phone] documented in this encounter Plan of Treatment Upcoming Encounters Date Type Specialty Care Team Description 05/20/2022 Lab Lab documented as of this encounter Visit Diagnoses Diagnosis Chronic deep vein thrombosis (DVT) of lo wer extremity, unspecified laterality, unspecified vein (H) - Primary [facility] current use of anticoagulant t herapy documented in this encounter Care Teams Law Writer Relationship Specialty Start Date End Date Froylan Louise MD PCP - General Family Practice 02/22/14 Froylan Louise MD Assigned PCP 03/13/14 2 Esthela Corea RN Personal Advocate & Liaison Family Medicine 10/16 (PAL) documented as of this encounter
--- OUTSIDE RECORDS SUMMARY | 2022-05-15 22:21 | XMS_ITS | Encounter Summary ---
:1955 Author Organization [facility] Address [address] [place] [address] Care Team Providers Name Role Phone Froylan Louise MD Primary Care Provider Unavailable Froylan Louise MD Unavailable Unavailable Esthela Corea RN Unavailable Unavailable Reason for Referral Consultation (Routine) - Closed Specialty Diagnoses / Procedures Referred By Contact Refer red To Contact Wound Care Diagnoses Open knee wound, left, initial encounter Quincy Carvalho PA-C [facility] [address] [place] [address] [place] [address] Fax: Referral ID Status Reason Start Date Expiration Date Visits Requ ested Visits Authorized [id number] Closed 12/25/2020 12/25/2021 1 1 Reason for Visit Reason Comments WOUND CARE Consultation (Routine) - Closed Specialty Diagnoses / Procedures Referred By Contact Refer red To Contact Wound Care Diagnoses Open knee wound, left, initial encounter Quincy Carvalho PA-C [facility] [address] [place] [address] [place] [address] Fax: Referral ID Status Reason Start Date Expiration Date Visits Requ ested Visits Authorized [id number] Closed 12/25/2020 12/25/2021 1 1 Encounter Details Date Type Department Care Team Description 01/02/2021 Hospital Encounter [facility] Jayesh Mac Open knee wound, Wound Clinic Latesha Viveros PA-C left, initial [address] WOUND HEALING encounter [address] [place] [address] [address] [place] [id number] Social History Tobacco Use Types Packs/Day Years Used Date Smoking Tobacco: Former Cigarettes 2 25 Quit : 08/04/2006 Smokeless Tobacco: Never Comments: 2004 Alcohol Use Standard Drinks/Week Comments Yes 0 (1 standard drink = 0.6 oz pure alcoho l) 4 BEERS A WEEK Alcohol Habits Answer Date Recorded How often do you have a drink containing 4 or more times a w [place] 05/25/2021 alcohol? How many drinks containing [...] you attend mandaen or Patient refused 2020 uatsdin services? Do you belong to any clubs [...] minutes do you engage in exercise at is 60 min 05/25/2021 level? Stress Answer [...] Sign Reading Time Taken Comments Blood Pressure 157/87 01/02/2021 10:07 AM CDT Pulse 84 01/02/2021 10:07 AM CDT Temperature 36.4 ??C (97.6 ??F) 01/02/2021 10:07 AM CDT Respiratory Rate 18 01/02/2021 10:07 AM CDT Oxygen Saturation - - Inhaled Oxygen Concentration - - Weight 108.9 kg (240 lb) 01/02/2021 10:07 AM CDT Height 180.3 cm (5' 11) 01/02/2021 10:07 AM CDT Body Mass Index 33.47 01/02/2021 10:07 AM CDT documented in this encounter Discharge Instructions Discharge InstructionsJessica Quinones RN - 01/02/2021 10:42 AM CDT Images from the original note were not included. [facility] [address] [place] [phone] Call us at [phone] if you have any questions about your [...] healin. Vitamin D3 10,000 iu per day A diet high in protein is important for wound healing, we recommend getting 90 grams of protein per day. Taking protein shakes or bars are a good way to get extra protein in your diet. Good sources of protein: Pork 26g per 3 oz Whey protein powder - 24g per scoop (on average) Arabic yogurt - 23g per 8oz Chicken or [place] - 23g per 3oz Fish - 20-25g per 3oz Beef - 18-23g per 3oz Marissa beans - 20g per cup Cottage cheese - 14g per 1/2 cup Lentils - 13g per 1/4 cup Beef jerky 13g per 1oz 2% milk - 8g per cup Peanut butter - 8g per 2 tablespoons Eggs - 6g per egg Mixed nuts - 6g per 2oz Wound care recommendations to left knee wound Cleanse wound with wound cleanser or saline. Lightly pack entire wound bed with 1/2 packing strip impregnated with Vashe and use cover with dressing of choice. Change daily. Compression: Apply clean compression socks first thing in the morning followed by chase wrap over the knee. Remove compression dressing if toes turn blue and/or start to feel numb and is not relieved by elevating the leg for one hour. Walk as much as you can. When you sit raise your ankle above your hips to promote wound healing. Fallon Mac PA-C. January 02, 2021 Wound Clinic follow up as scheduled with Dr. Nuñez If you had a positive experience please indicate that on your patient satisfaction survey form that [facility] will be sending you. It was a [...] any billing related questions please call the [facility] Business office at [phone]. The clinic staff does not handle billing [...] proximal vein of both lower extremities (H), group home current use of anticoagulants with INR goal of 2.0-3.0 albuterol (PROAIR Inhale 2 puffs 3 Inhaler 3 05/26/2020 HFA/PROVENTIL HFA/VENTOLIN into the lungs HFA) 108 (90 Base) MCG/ACT every 6 hours as inhaler needed for shortness of breath / dyspnea or wheezing enoxaparin ANTICOAGULANT Inject 0.4 mLs (40 2.4 mL 1 08/202001/10/2021 (LOVENOX) 40 MG/0.4ML mg) Subcutaneous syringeIndications: daily Hold day of Chronic deep vein procedure. Restart thrombosis (DVT) of lower 24-48 hours after extremity, unspecified procedure, as laterality, unspecified advised by vein (H), group home provider. Then current use of continue daily anticoagulant therapy injections until INR 2.3 or higher (or >2.0 twice, 24 hours apart). Hheupjplekb-Yudekdvgt-Elsg Inhale 1 puff into 1 Inhaler 11 1 07/27/2019 01/12/2021 nterol (TRELEGY ELLIPTA) the lungs daily 100-62.5-25 MCG/INH oral inhalerIndications: Moderate persistent asthma without complication hydrochlorothiazide Take 1 tablet (25 90 tablet 1 01/12/2021 (HYDRODIURIL) 25 MG mg) by [...] encounter Progress Notes Fallon Mac PA-C - 01/02/2021 10:08 AM CDT Images from the original note were not included. [facility] ASSESSMENT: 1. (S81.002A) Open knee wound, left, initial encounter 2. 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 There is extensive undermining from what appears to be a previous hematoma. Discussed with Virgil that this may need to be opened up and washed out depending on the progress he makes with more aggressive wound care and better management of edema. He is scheduled next week with Dr. Nuñez for reassessment. 2. Wound care plan: pack with Vashe damp 1/2 inch NuGauze, cover with gauze or bandage. Wear calf length compression socks and then secure CHASE bandage around knee. We trialed using Spandage or Spandigrip from his calf to his thigh but he was unable to pull it up and over his knee, therefore we will have to utilize an CHASE bandage. Importance of compression therapy was stressed. 3. Recommend that he avoid biking and other activities that cause a lot of knee flexion. 4. Nutrition: continue MVI, add on vit D 5kIU/day, high protein diet HISTORY OF PRESENT ILLNESS: Virgil Christine is a 65 year old male with history of ulcerative colitis, chronic RLE DVT, R knee arthroplasty, antiphospholipid syndrome, and chronic anticoagulation on coumadin who presents today for a left knee ulceration. This started after a fall in mid November. He presented to the ED and had XR and blood work which were both negative. He notes that it has been very swollen and leaking clear fluid butdenies pain. He does not smoke and is not diabetic. Denies fevers, chills, or nausea. Works as a [employer]. He also likes to bike. Typically wears compression stockings due to his baseline lower leg edema. TREATMENT COURSE: 01/02/21: Presents for initial visit at our clinic. Dressing with bacitracin and bandaid. VITALS: BP (!) 157/87 (BP Location: Left arm) Pulse 84 Temp 97.6 ??F (36.4 ??C) (Temporal) Resp 18 Ht 1.803 m (5' 11) Wt 108.9 kg (240 lb) BMI 33.47 kg/m?? PHYSICAL EXAM: GENERAL: Patient is alert and oriented and in no acute distress CV: palpable PT and DP pulses INTEGUMENTARY: Wound (used by OP [facility] only) Left other (see comments) (Active) Thickness/Stage full thickness 01/02/21 1024 Dressing Appearance moist drainage 01/02/21 1000 Base slough 01/02/21 1024 Periwound intact;edematous 01/02/21 1024 Periwound Temperature warm 01/02/21 1024 Periwound Skin Turgor soft 01/02/21 1000 Edges open 01/02/21 1000 Length (cm) 1.7 01/02/21 1000 Width (cm) 2.4 01/02/21 1000 Depth (cm) 1.2 01/02/21 1000 Wound (cm^2) 4.08 cm^2 01/02/21 1000 Wound Volume (cm^3) 4.9 cm^3 01/02/21 1000 Undermining [Depth (cm)/Location] 3-11o' = 4.4cm 01/02/21 1000 Drainage Characteristics/Odor serosanguineous 01/02/21 1000 Drainage Amount copious 01/02/21 1000 Care, Wound debrided 01/02/21 1024 PROCEDURE: 4% topical lidocaine was applied to the wound by nursing staff. Patient was determined srinivasa capable of making their own medical decisions and informed consent was obtained. Using a sharp curette a surgical debridement was performed down to and including subcutaneous tissue of <20 cm2. Hemostasis was achieved with pressure. The patient tolerated the procedure well. MDM: 45 minutes were spent on Jan 02, 2021 reviewing previous chart notes, labs, imaging, assessing the patient, developing the plan of care and education. FALLON MAC PA-C documented in this encounter Plan of Treatment Upcoming Encounters Date Type Specialty Care Team Description 05/20/2022 Lab Lab Scheduled Referrals Name Type Priority Associated Diagnoses Order S chedule WOUND CARE REFERRAL Referral Routine Open knee wound, left , 1 Occurrences starting initial encounter 01/02/2021 until 01/02/2021 documented as of this encounter Visit Diagnoses Diagnosis Open knee wound, left, initial encounter documented in this encounter Care Teams Fur Trimming Machine Operator Relationship Specialty Start Date End Date Froylan Louise MD PCP - General Family Practice 02/22/14 Froylan Louise MD Assigned PCP 03/13/14 2 Esthela Corea, RN Personal Advocate & Liaison Family Medicine 10/16 (PAL) documented as of this encounter
--- OUTSIDE RECORDS SUMMARY | 2022-05-15 22:22 | XMS_ITS | Encounter Summary ---
:1955 Author Organization [place] Address [address] [place] [address] Care Team Providers Name Role Phone Froylan Louise MD Primary Care Provider Unavailable Froylan Louise MD Unavailable Unavailable Esthela Corea RN Unavailable Unavailable So Dodd MD Primary Care Provider Froylan Louise MD Primary Care Provider Unavailable So Dodd MD Unavailable So Dodd MD Primary Care Provider Encounter Details Date Type Department Care Team Description 12/13/2020 Documentation Only INTERFACED REPORT Unknown, Provider Social History Tobacco Use Types Packs/Day Years Used Date Smoking Tobacco: Former Cigarettes 2 25 Quit : 08/04/2006 Smokeless Tobacco: Never Comments: 2004 Alcohol Use Standard Drinks/Week Comments Yes 0 (1 standard drink = 0.6 oz pure alcoho l) 4 BEERS A WEEK Alcohol Habits Answer Date Recorded How often do you have a drink containing 4 or more times a w [place] 05/25/2021 alcohol? How many drinks containing alcohol [...] you attend buddhist or Patient refused 2020 methodist services? Do [...] filedocumented in this encounter Care Teams Rn Research Relationship Specialty Start Date End Date Froylan Louise MD PCP - General Family Practice 02/22/14 So Dodd MD PCP - General Family Medicine 01/10/22 01/17/22 [address] [place], [place] [id number] Froylan Louise MD PCP - General Family Medicine 01/18/22 So Dodd MD PCP - General Family Medicine 02/21/22 [address] [place] [address] Froylan Louise MD Assigned PCP 03/13/14 2 Esthela Corea, RN Personal Advocate & Liaison Family Medicine 10/16 (PAL) So Dodd MD Assigned PCP 01/05/22 [address] [place] [address] documented as of this encounter
--- OUTSIDE RECORDS SUMMARY | 2022-05-15 22:22 | XMS_ITS | Encounter Summary ---
:1955 Author Organization [facility] Address [address] [place] [address] Care Team Providers Name Role Phone Froylan Louise MD Primary Care Provider Unavailable Froylan Louise MD Unavailable Unavailable Esthela Corea RN Unavailable Unavailable Encounter Details Date Type Department Care Team Description 12/11/2020 Travel Social History Tobacco Use Types Packs/Day Years Used Date Smoking Tobacco: Former Cigarettes 2 25 Quit : 08/04/2006 Smokeless Tobacco: Never Comments: 2004 Alcohol Use Standard Drinks/Week Comments Yes 0 (1 standard drink = 0.6 oz pure alcoho l) 4 BEERS A WEEK Alcohol Habits Answer Date Recorded How often do you have a drink containing 4 or more times a w [place] 05/25/2021 alcohol? How many drinks containing alcohol [...] you attend taoist or Patient refused 2020 baptism services? Do [...] on filedocumented in this encounter Care Teams Utility Sales Representative Relationship Specialty Start Date End Date Froylan Louise MD PCP - General Family Practice 02/22/14 Froylan Louise MD Assigned PCP 03/13/14 2 Esthela Corea, RN Personal Advocate & Liaison Family Medicine 10/16 (PAL) documented as of this encounter
--- OUTSIDE RECORDS SUMMARY | 2022-05-15 22:22 | XMS_ITS | Encounter Summary ---
:1955 Author Organization [place] Address [address] [place] [address] Care Team Providers Name Role Phone Froylan Louise MD Primary Care Provider Unavailable Froylan Louise MD Unavailable Unavailable Esthela Corea RN Unavailable Unavailable Reason for Visit Reason Onset Date Comments Medication Problem 12/13/2020 Side effects COVID v accine Encounter Details Date Type Department Care Team Description 12/13/2020 [facility] Froylan Louise, [facility] cation Problem Clinic Chhaya VILLASEÑOR (Side effects COVID [id number] [facility] vaccine) [place] [address] Social History Tobacco Use Types [...] containing 4 or more times a w [place] 05/25/2021 alcohol? How many drinks containing alcohol [...] attend jehovah's witness or Patient refused 2020 latter-day services? Do [...] this encounter Miscellaneous Notes Telephone Encounter - Erendira Olmos RN - 12/13/2020 1:28 PM CDT Patient calling back. Now T- 101.6. Took Ibuprofen around noon. Discussed can take Tylenol 1000 mg between Motrin doses. Patient agrees with plan. Will call back if unable to control fever or other concerns. Erendira Olmos RN Telephone Encounter - Erendira Olmos RN - 12/13/2020 1:00 PM CDT Patient calling and states had 2nd COVID vaccine yesterday. Was feeling fine. Now today T- 100.6 andnow 100.7, chills, body aches and not feeling well in general. Discussed these are normal side effects. Advised Tylenol, rest and increasing water. Patient already took Ibuprofen 800 mg for his back. Patient agrees with plan to monitor for now. Erendira Olmos RN documented in this encounter Plan of Treatment Upcoming Encounters Date Type Specialty Care Team Description 05/20/2022 Lab Lab documented as of this encounter Visit Diagnoses Not on filedocumented in this encounter Care Teams Data Management Associate Relationship Specialty Start Date End Date Froylan Louise MD PCP - General Family Practice 02/22/14 Froylan Louise MD Assigned PCP 03/13/14 2 Esthela Corea RN Personal Advocate & Liaison Family Medicine 10/16 (PAL) documented as of this encounter
--- OUTSIDE RECORDS SUMMARY | 2022-05-15 22:22 | XMS_ITS | Encounter Summary ---
:1955 Author Organization [place] Address [address] [place] [address]. [place] [address] Care Team Providers Name Role Phone Froylan Louise MD Primary Care Provider Unavailable Froylan Louise MD Unavailable Unavailable Esthela Corea RN Unavailable Unavailable Encounter Details Date Type Department Care Team Description 12/12/2020 [facility] Swathi Rose [place] MD [address] [place] [address] 5 [id number] [phone] Social History Tobacco Use Types Packs/Day Years Used Date Smoking Tobacco: Former Cigarettes 2 25 Quit : 08/04/2006 Smokeless Tobacco: Never Comments: 2004 Alcohol Use Standard Drinks/Week Comments Yes 0 (1 standard drink = 0.6 oz pure alcoho l) 4 BEERS A WEEK Alcohol Habits Answer Date Recorded How often do you have a drink containing 4 or more times a w [place] 05/25/2021 alcohol? How many drinks containing alcohol [...] you attend temple or Patient refused 2020 evangelical services? Do you belong to any clubs [...] Sign Reading Time Taken Comments Blood Pressure 136/78 12/12/2020 4:02 PM CDT Pulse - - Temperature - - Respiratory Rate - - Oxygen Saturation - - Inhaled Oxygen Concentration - - Weight - - Height - - Body Mass Index - - documented in this encounter Plan of Treatment Upcoming Encounters Date Type Specialty Care Team Description 05/20/2022 Lab Lab documented as of this encounter Visit Diagnoses Not on filedocumented in this encounter Care Teams Trial Paralegal Relationship Specialty Start Date End Date Froylan Louise MD PCP - General Family Practice 02/22/14 Froylan Louise MD Assigned PCP 03/13/14 2 Esthela Corea RN Personal Advocate & Liaison Family Medicine 10/16 (PAL) documented as of this encounter
--- OUTSIDE RECORDS SUMMARY | 2022-05-15 22:22 | XMS_ITS | Encounter Summary ---
:1955 Author Organization [place] Address [address] [place] [address] Care Team Providers Name Role Phone Froylan Louise MD Primary Care Provider Unavailable Froylan Louise MD Unavailable Unavailable Esthela Corea RN Unavailable Unavailable Encounter Details Date Type Department Care Team Description 12/11/2020 Anticoagulation Therapy [facility] Audrey Louise Chronic deep vein thrombosis (DVT) of lower extremity, unspecified laterality, unspecified vein (H); Visit Clinic Chhaya Dubose MD prison current use of ant icoagulant therapy [address] [place] [address] Social History Tobacco Use Types [...] you attend orthodox or Patient refused 2020 shinto services? Do [...] encounter Progress Notes Diana Nielsen RN - 12/11/2020 3:11 PM CDT ANTICOAGULATION FOLLOW-UP CLINIC VISIT Patient Name: Virgil Christine Date: 12/11/2020 Contact Type: Telephone SUBJECTIVE: Patient Findings Positives: Change in health, Upcoming invasive procedure, Bruising (left knee) Comments: Called patient to discuss today's INR results: Patient fell 12/07/20 and injured left knee- prescribed abx (patient note sure of name) and Wadley. Experienced nausea so quite both after one dose. However, has since had the Wadley again for back pain and no nausea. Dr. Abreu also advised patient to hold his warfarin on Friday, which patient did, and then Virgil decided to take 10 mg insteadof usual 7.5 mg on Friday to get back on track. Additionally he is experiencing some lower extremity inflammation - he feels it is water weight due to not working the last 3 days, and was wondering if he should take his Lasix. ACC RN advised he would need to contact Dr. Louise since Lasix is no lo nger on his medication list and it can alter his electrolytes (though he still has it at home from [facility] over a year ago). Patient stated understanding and is in agreement with plan. He also plans to have another spinal injection (similar to what he had in June). In June patient did hold warfarin x5 days and bridged daily with Lovenox. He will call tomorrow once he has procedure scheduled so we can work out hold/bridge plan. Reviewed maintenance warfarin dosing with patient.Patient will remain on the same dose until next INR check or hold for procedure. No other questions or concerns. Next INR already scheduled in about 2 weeks. Clinical Outcomes Negatives: Major bleeding event, Thromboembolic event, Anticoagulation-related hospital admission, Anticoagulation-related ED visit, Anticoagulation-related fatality Comments: Called patient to discuss today's INR results: Patient fell 12/07/20 and injured left knee- prescribed abx (patient note sure of name) and Wadley. Experienced nausea so quite both after one dose. However, has since had the Wadley again for back pain and no nausea. Dr. Abreu also advised patient to hold his warfarin on Friday, which patient did, and then Virgil decided to take 10 mg insteadof usual 7.5 mg on Friday to get back on track. Additionally he is experiencing some lower extremity inflammation - he feels it is water weight due to not working the last 3 days, and was wondering if he should take his Lasix. ACC RN advised he would need to contact Dr. Louise since Lasix is no lo nger on his medication list and it can alter his electrolytes (though he still has it at home from [facility] over a year ago). Patient stated understanding and is in agreement with plan. He also plans to have another spinal injection (similar to what he had in June). In June patient did hold warfarin x5 days and bridged daily with Lovenox. He will call tomorrow once he has procedure scheduled so we can work out hold/bridge plan. Reviewed maintenance warfarin dosing with patient.Patient will remain on the same dose until next INR check or hold for procedure. No other questions or concerns. Next INR already scheduled in about 2 weeks. OBJECTIVE Recent labs: (last 7 days) 12/11/20 1241 INR 2.60* ASSESSMENT / PLAN INR assessment THER Recheck INR In: 2 WEEKS INR Location Clinic Anticoagulation Summary As of 12/11/2020 INR goal: 2.0-3.0 TTR: 70.3 % (1 y) INR used for dosin.60 (12/11/2020) Warfarin maintenance plan: 5 mg (5 mg x 1) every Wed; 7.5 mg (7.5 mg x 1) all other days Full warfarin instructions: 5 mg every Wed; 7.5 mg all other days Weekly warfarin total: 50 mg No change documented: Diana Nielsen RN Plan last modified: Hilda Burch RN (05/14/2019) Next INR check: 12/22/2020 Priority: Maintenance Target end date: Indefinite Indications Chronic deep vein thrombosis (DVT) of lower extremity unspecified laterality unspecified vein (H) [I82.509] Long-term (current) use of anticoagulants [Z79.01] [Z79.01] Anticoagulation Episode Summary INR check location: Preferred lab: Send INR reminders to: STE[facility] A[facility]URN Comments: Anticoagulation Care Providers Provider Role Specialty Phone number Froylan Louise MD Referring Family Medicine [phone] See the Encounter Report to view Anticoagulation Flowsheet and Dosing Calendar (Go to Encounters tabin chart review, and find the Anticoagulation Therapy Visit) Diana Nielsen RN documented in this encounter Plan of Treatment Upcoming Encounters Date Type Specialty Care Team Description 05/20/2022 Lab Lab documented as of this encounter Visit Diagnoses Diagnosis Chronic deep vein thrombosis (DVT) of lo wer extremity, unspecified laterality, unspecified vein (H) prison current use of anticoagulant t herapy documented in this encounter Care Teams Fructose Loader Relationship Specialty Start Date End Date Froylan Louise MD PCP - General Family Practice 02/22/14 Froylan Louise MD Assigned PCP 03/13/14 2 Esthela Corea RN Personal Advocate & Liaison Family Medicine 10/16 (PAL) documented as of this encounter
--- OUTSIDE RECORDS SUMMARY | 2022-05-15 22:22 | XMS_ITS | Encounter Summary ---
:1955 Author Organization [place] Address [address] [place] [address] Care Team Providers Name Role Phone Froylan Louise MD Primary Care Provider Unavailable Froylan Louise MD Unavailable Unavailable Esthela Corea RN Unavailable Unavailable Encounter Details Date Type Department Care Team Description 12/11/2020 Orders Only [facility] onic deep vein thrombosis (DVT) of lower extremity, unspecified laterality, unspecified vein (H); [facility] [place]erman current use of ant icoagulants with INR goal of 2.0-3.0 [address] [place] [address] Social History Tobacco Use [...] containing 4 or more times a w [place] 05/25/2021 alcohol? How many drinks containing alcohol [...] you attend mandaen or Patient refused 2020 adventism services? Do [...] Priority Date/Time Associated Diagnosis Comme nts INR Routine 12/11/2020 12:41 PM Chronic deep vein Res ults for this CDT thrombosis (DVT) of procedur e are in lower extremity, the results unspecified laterality, sect ion. unspecified vein (H) [place] current use of anticoagulants with INR goal of 2.0-3.0 documented in this encounter Results (ABNORMAL) INR (12/11/2020 12:41 PM CDT) athologist Signature INR 2.60 (H) 0.86 - 1.14 12/11/2020 [facility] 12:47 PM CDT [facility] Comment: This test is intended for monitoring Cou madin therapy. ??Results are not accurate in patients with prolonged INR due to factor deficiency. Specimen Anatomical Collection Method Collection Time Receive d Time (Source) Location / / Volume Laterality Blood specimen 12/11/2020 12:41 1 (specimen) PM CDT 12:46 PM CDT Froylan Louise MD LAB - BLOOD ORDERABLES Performing Organization Address City/State/ZIP Code Phon e Number [facility] [address] [place] [address] documented in this encounter Visit Diagnoses Diagnosis Chronic deep vein thrombosis (DVT) of lo wer extremity, unspecified laterality, unspecified vein (H) group home current use of anticoagulants with INR goal of 2.0-3.0 documented in this encounter Care Teams Electronic Repair Troubleshooter Relationship Specialty Start Date End Date Froylan Louise MD PCP - General Family Practice 02/22/14 Froylan Louise MD Assigned PCP 03/13/14 2 Esthela Corea RN Personal Advocate & Liaison Family Medicine 10/16 (PAL) documented as of this encounter
--- OUTSIDE RECORDS SUMMARY | 2022-05-15 22:22 | XMS_ITS | Encounter Summary ---
:1955 Author Organization [place] Address [address] [place] [address] Care Team Providers Name Role Phone Froylan Louise MD Primary Care Provider Unavailable Froylan Louise MD Unavailable Unavailable Esthela Corea RN Unavailable Unavailable Reason for Visit Reason Onset Date Comments Anticoagulation 12/14/2020 Encounter Details Date Type Department Care Team Description 12/14/2020 Telephone [facility] Froylan Louise Ra, MD [address] [address] Social History Tobacco Use [...] containing 4 or more times a w [place] 05/25/2021 alcohol? How many drinks containing alcohol [...] you attend sikhism or Patient refused 2020 zoroastrianism services? Do [...] Telephone Encounter - Stevo Thorne RN - 12/14/2020 3:35 PM CDT Spoke with patient, he is short 1 lovenox syringe. That is because his injection was moved up and the 3 day recheck fell on the weekend and needed to check on day 4. Advised he has 1 refill left at [facility] and he can hot die picker syringes over the weekend. Patient/ parent verbalized understanding and agrees with plan. Rosmery Thorne RN [facility] [place] Telephone Encounter - Shelly Rob RN - 12/14/2020 3:25 PM CDT Patient left a VM at 3:14 PM requesting a call back to discuss Lovenox injections. Can call him at [phone]. Shelly Rob RN [facility] documented in this encounter Plan of Treatment Upcoming Encounters Date Type Specialty Care Team Description 05/20/2022 Lab Lab documented as of this encounter Visit Diagnoses Not on filedocumented in this encounter Care Teams Sales Representative Uniforms Relationship Specialty Start Date End Date Froylan Louise MD PCP - General Family Practice 02/22/14 Froylan Louise MD Assigned PCP 03/13/14 2 Esthela Corea, CINDY Personal Advocate & Liaison Family Medicine 10/16 (PAL) documented as of this encounter
--- OUTSIDE RECORDS SUMMARY | 2022-05-15 22:22 | XMS_ITS | Encounter Summary ---
:1955 Author Organization [place] Address [facility] [place] [address] Care Team Providers Name Role Phone Froylan Louise MD Primary Care Provider Unavailable Froylan Louise MD Unavailable Unavailable Esthela Corea RN Unavailable Unavailable Reason for Visit Reason Onset Date Comments Anticoagulation 12/11/2020 warfarin hold/bridge plan Encounter Details Date Type Department Care Team Description 12/11/2020 [facility] Froylan Louise (warfarin Clinic [place] hold/bridge plan) [address] [place] [address] Social History Tobacco Use Types [...] containing 4 or more times a w [place] 05/25/2021 alcohol? How many drinks containing alcohol [...] you attend confucianist or Patient refused 2020 buddhist services? Do [...] Telephone Encounter - Stevo Thorne RN - 12/13/2020 5:19 PM CDT See 12/12/20 MyChart encounter. Spoke with patient and bridge plan addended for new dates. Rosmery Thorne RN [facility] [place] Telephone Encounter - Padmini Eller RN - 12/13/2020 9:28 AM CDT left at 0850 regarding this procedure. Patient states it was changed to 12/21/20. Please cas him back to discuss. Thanks! Padmini Eller RN, BSN [facility] Anticoagulation Team Telephone Encounter - Diana Nielsen RN - 12/12/2020 1:09 PM CDT Virgil called back his spinal injection is scheduled for 12/26/20. Reviewed warfarin hold/restart instructions as well as bridging instructions. Lovenox prescription e-prescribed to pharmacy of choice. Written instructions sent via [facility] [place] [place]. Scheduled next INR 3 days after procedure. Patient stated understanding and had no other questions. Diana Mukherjee RN Anticoagulation Team Telephone Encounter - Susanna Mendoza RPH - 12/11/2020 4:38 PM CDT JOAN-PROCEDURAL ANTICOAGULATION MANAGEMENT Assessment Warfarin interruption plan for spinal injection. DVT 2007, 2008, Lupus anticoagulant positive ? Risk stratification for thromboembolism: high (2012 Chest guidelines) ? LAC + 01/05/2018 & 06/05/2018 2012 Chest joan-procedural guidelines suggests bridging patients with a mechanical heart valve, atrial fibrillation, or VTE at high risk for thromboembolism Plan ?? Pre-Procedure: ?? Hold warfarin for 5 days until after procedure ?? Lovenox 40 mg subq Q 24 hrs ?? Start Lovenox: on third day of warfarin hold in AM ?? Last dose of Lovenox prior to procedure: In AM, 24 hours prior to procedure ?? Post-Procedure: ?? Resume warfarin dose if okay with provider doing procedure on night of procedure: patient has taken 13 and 14 days to return to therapeutic despite 15mg x 1 followed by 10 mg x 1 post procedure. Recommend 15 mg x 2, then resume home dose ?? Resume Lovenox ~ 24-48 hrs post procedure when okay with provider doing procedure. Continue untilINR >= 2 ?? Recheck INR 7 days after resuming warfarin ? Susanna Mendoza RPH Subjective/Objective: Virgil Christine, a 65 year old male Reason for Anticoagulation: DVT 2006, 2007, Lupus anticoagulant positive Goal INR Range: 2.0-3.0 Patient bridged in past: Yes: prophylactic enoxaparin for last two bridge plans (June and September 2020) Wt Readings from Last 3 Encounters: 10/16/20 113.9 kg (251 lb) 10/12/20 114.3 kg (252 lb) 05/26/20 108 kg (238 lb) [place] body weight: 77.6 kg (171 lb 1.2 oz) Adjusted ideal body weight: 92.1 kg (203 lb 0.7 oz) Lab Results Component Value Date INR 2.60 (H) 12/11/2020 INR 3.00 (H) 2020 INR 3.10 (H) 11/16/2020 Lab Results Component Value Date HGB 13.9 10/06/2020 HCT 42.1 10/06/2020 PLT 181 10/06/2020 Lab Results Component Value Date CR 0.97 10/06/2020 CR 0.89 09/03/2020 CR 0.890 08/04/2020 Telephone Encounter - Diana Nielsen RN - 12/11/2020 3:39 PM CDT Patient states he will be having a spinal injection (not yet scheduled - will have date by tomorrow?) Similar to June, they want his INR to be 1.5 or less. In June he held x5 days and bridged with Lovenox. There was some discussion about restart dosing of warfarin at the time due warfarin interactions with other meds he was on at the time. R[facility] to [facility] Pharm[facility] for assessment/recommendations. ACC RN will route date of procedure as soon as it is known. 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
--- OUTSIDE RECORDS SUMMARY | 2022-05-15 22:22 | XMS_ITS | Encounter Summary ---
:1955 Author Organization [place] Address [address] [place] [address] Care Team Providers Name Role Phone Froylan Louise MD Primary Care Provider Unavailable Froylan Louise MD Unavailable Unavailable Esthela Corea RN Unavailable Unavailable Encounter Details Date Type Department Care Team Description 11/16/2020 Anticoagulation Therapy [facility] Audrey Louise Chronic deep vein thrombosis (DVT) of lower extremity, unspecified laterality, unspecified vein (H); Visit Clinic Chhaya Dubose MD detention current use of ant icoagulant therapy [address] [place] [address] Social History Tobacco Use Types [...] or more times a w [place] 05/25/2021 alcohol? How many drinks containing alcohol [...] you attend adventism or Patient refused 2020 judaism services? Do [...] been in contact with No / Unsure 11/16/2020 11:35 AM CDT someone who was confirmed or suspected to have Coronavirus / COVID-19? documented as of this encounter Progress Notes Diana Nielsen RN - 11/16/2020 12:06 PM CDT Images from the original note were not included. ANTICOAGULATION FOLLOW-UP CLINIC VISIT Patient Name: Virgil Christine Date: 11/16/2020 Contact Type: Telephone SUBJECTIVE: Patient Findings Positives: Change in health Comments: Called patient to discuss today's INR results: The patient was assessed for diet, medication, and activity level changes, missed or extra doses, bruising or bleeding, with no problem findings. However, Virgil had his covid-19 vaccination on Friday and had a strong injection site reaction with inflammation and redness. He states there is still some inflammation and discoloration on that arm. Advised patient to give it a little more time. For now will not change maintenance dosing but patientwill add in a few extra servings of green veggies over the next couple of days (he usually doesn't eat that much), then return to regular intake. Recheck INR in another 2 weeks. Diana Mukherjee RN Anticoagulation Team Clinical Outcomes Negatives: Major bleeding event, Thromboembolic event, Anticoagulation-related hospital admission, Anticoagulation-related ED visit, Anticoagulation-related fatality Comments: Called patient to discuss today's INR results: The patient was assessed for diet, medication, and activity level changes, missed or extra doses, bruising or bleeding, with no problem findings. However, Virgil had his covid-19 vaccination on Friday and had a strong injection site reaction with inflammation and redness. He states there is still some inflammation and discoloration on that arm. Advised patient to give it a little more time. For now will not change maintenance dosing but patientwill add in a few extra servings of green veggies over the next couple of days (he usually doesn't eat that much), then return to regular intake. Recheck INR in another 2 weeks. Diana Mukherjee RN Anticoagulation Team OBJECTIVE Recent labs: (last 7 days) 11/16/20 1120 INR 3.10* ASSESSMENT / PLAN INR assessment SUPRA Recheck INR In: 2 WEEKS INR Location Clinic Anticoagulation Summary As of 11/16/2020 INR goal: 2.0-3.0 TTR: 74.4 % (1 y) INR used for dosin.10 (11/16/2020) Warfarin maintenance plan: 5 mg (5 mg x 1) every Wed; 7.5 mg (7.5 mg x 1) all other days Full warfarin instructions: 5 mg every Wed; 7.5 mg all other days Weekly warfarin total: 50 mg No change documented: Diana Nielsen RN Plan last modified: Hilda Burch RN (05/14/2019) Next INR check: 2020 Priority: Maintenance Target end date: Indefinite Indications Chronic deep vein thrombosis (DVT) of lower extremity unspecified laterality unspecified vein (H) [I82.509] Long-term (current) use of anticoagulants [Z79.01] [Z79.01] Anticoagulation Episode Summary INR check location: Preferred lab: Send INR reminders to: [facility] Comments: Anticoagulation Care Providers Provider Role Specialty Phone number Froylan Louise MD Referring Family Medicine [phone] See the Encounter Report to view Anticoagulation [...] wer extremity, unspecified laterality, unspecified vein (H) detention current use of anticoagulant t herapy documented in this encounter Care Teams Bag Bleacher Relationship Specialty Start Date End Date Froylan Louise MD PCP - General Family Practice 02/22/14 Froylan Louise MD Assigned PCP 03/13/14 2 Esthela Corea RN Personal Advocate & Liaison Family Medicine 10/16 (PAL) documented as of this encounter
--- OUTSIDE RECORDS SUMMARY | 2022-05-15 22:22 | XMS_ITS | Encounter Summary ---
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 How many drinks containing alcohol [...] you attend hoahaoism or Patient refused 2020 latter day services? [...] Associated Diagnosis Comme nts CAPILLARY BLOOD Routine 2020 2:15 PM Chronic deep vein R esults for this COLLECTION CDT thrombosis (DVT) of procedur e are in lower extremity, the results unspecified section. laterality, unspecified vein (H) INR Routine 2020 2:15 PM Chronic deep vein Resu lts for this CDT thrombosis (DVT) of procedur e are in lower extremity, the results unspecified section. 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 [address] (ABNORMAL) INR (2020 2:15 PM CDT) P athologist Signature INR 3.00 (H) 0.86 - 1.14 2020 [place] 2:[address] [facility] Comment: This test is intended for monitoring Cou madin therapy. ??Results are not accurate in patients with prolonged INR due to factor deficiency. Specimen Anatomical Collection Method Collection Time Receive d Time (Source) Location / / Volume Laterality Blood specimen 2020 2:15 PM 021 2:16 (specimen) CDT PM CDT Froylan Louise MD LAB - BLOOD ORDERABLES Performing Organization Address City/State/ZIP Code Phon e Number [facility] [id number] 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
--- OUTSIDE RECORDS SUMMARY | 2022-05-15 22:22 | XMS_ITS | Encounter Summary ---
:1955 Author Organization [facility] Address [address] [place] [address] Care Team Providers Name Role Phone Froylan Louise MD Primary Care Provider Unavailable Froylan Louise MD Unavailable Unavailable Esthela Corea RN Unavailable Unavailable Encounter Details Date Type Department Care Team Description 10/19/2020 Orders Only [facility] onic deep vein thrombosis (DVT) of lower extremity, unspecified laterality, unspecified vein (H); [facility] current use of ant icoagulants with INR goal of 2.0-3.0 [address] [place] [address] Social History Tobacco Use [...] containing 4 or more times a w [place] 05/25/2021 alcohol? How many drinks containing alcohol [...] you attend bahai or Patient refused 2020 buddhism services? Do [...] been in contact with No / Unsure 10/19/2020 2:54 PM CDT someone who was confirmed or suspected to have Coronavirus / COVID-19? documented as of this encounter Plan of Treatment Upcoming Encounters Date Type Specialty Care Team Description 05/20/2022 Lab Lab documented as of this encounter Procedures Procedure Name Priority Date/Time Associated Diagnosis Comme nts CAPILLARY BLOOD Routine 10/19/2020 2:55 PM Chronic deep vein R esults for this COLLECTION CDT thrombosis (DVT) of procedur e are in lower extremity, the results unspecified section. laterality, unspecified vein (H) INR Routine 10/19/2020 2:55 PM Chronic deep vein Resu lts for this CDT thrombosis (DVT) of procedur e are in lower extremity, the results unspecified section. 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 [address] (ABNORMAL) INR (10/19/2020 2:55 PM CDT) P athologist Signature INR 2.20 (H) 0.86 - 1.14 10/19/2020 [place] 3:11 PM CDT [facility] Comment: This test is intended for monitoring Cou madin therapy. ??Results are not accurate in patients with prolonged INR due to factor deficiency. Specimen Anatomical Collection Method Collection Time Receive d Time (Source) Location / / Volume Laterality Blood specimen 10/19/2020 2:55 PM 021 2:56 (specimen) CDT PM CDT Froylan Louise MD LAB - BLOOD ORDERABLES Performing Organization Address City/State/ZIP Code Phon e Number [facility] [phone] 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
--- OUTSIDE RECORDS SUMMARY | 2022-05-15 22:22 | XMS_ITS | Encounter Summary ---
:1955 Author Organization [facility] Address [address] [place] [address] Care Team Providers Name Role Phone Froylan Loiuse MD Primary Care Provider Unavailable Froylan Louise MD Unavailable Unavailable Esthela Corea RN Unavailable Unavailable Encounter Details Date Type Department Care Team Description 10/16/[address] [facility] Audrey Louise Chronic deep vein thrombosis (DVT) of lower extremity, unspecified laterality, unspecified vein (H); Visit Clinic Chhaya Dubose MD rn long term care current use of ant icoagulant therapy [address] [place] [address] Social History Tobacco Use Types [...] you attend druze or Patient refused 2020 nondenominational services? Do [...] been in contact with No / Unsure 10/16/2020 10:40 AM CDT someone who was confirmed or suspected to have Coronavirus / COVID-19? documented as of this encounter Progress Notes Diana Nielsen RN - 10/16/2020 12:23 PM CDT Images from the original note were not included. ANTICOAGULATION FOLLOW-UP CLINIC VISIT Patient Name: Virgil Christine Date: 10/16/2020 Contact Type: Telephone SUBJECTIVE: Patient Findings Comments: Patient restarted warfarin and bridging with Lovenox once daily after pouchoscopy last week. The patient was assessed for diet, medication, and activity level changes, missed or extra doses,bruising or bleeding, with no problem findings. Advised patient to take boost of 12.5 mg warfarin today, continue bridging and recheck INR in 3 days. Patient stated understanding and is in agreement with plan. Diana Mukherjee RN Anticoagulation Team Clinical Outcomes Negatives: Major bleeding event, Thromboembolic event, Anticoagulation-related hospital admission, Anticoagulation-related ED visit, Anticoagulation-related fatality Comments: Patient restarted warfarin and bridging with Lovenox once daily after pouchoscopy last week. The patient was assessed for diet, medication, and activity level changes, missed or extra doses,bruising or bleeding, with no problem findings. Advised patient to take boost of 12.5 mg warfarin today, continue bridging and recheck INR in 3 days. Patient stated understanding and is in agreement with plan. Diana Mukherjee RN Anticoagulation Team OBJECTIVE Recent labs: (last 7 days) 10/16/20 1037 INR 1.70* ASSESSMENT / PLAN INR assessment SUB Recheck INR In: 3 DAYS INR Location Clinic Anticoagulation Summary As of 10/16/2020 INR goal: 2.0-3.0 TTR: 80.0 % (1 y) INR used for dosin.70 (10/16/2020) Warfarin maintenance plan: 5 mg (5 mg x 1) every Wed; 7.5 mg (7.5 mg x 1) all other days Full warfarin instructions: 10/16: 12.5 mg; Otherwise 5 mg every Wed; 7.5 mg all other days Weekly warfarin total: 50 mg Plan last modified: Hilda Burch RN (05/14/2019) Next INR check: 10/19/2020 Priority: High Target end date: Indefinite Indications Chronic deep vein thrombosis (DVT) of lower extremity unspecified laterality unspecified vein (H) [I82.509] Long-term (current) use of anticoagulants [Z79.01] [Z79.01] Anticoagulation Episode Summary INR check location: Preferred lab: Send INR reminders to: [facility] Comments: Anticoagulation Care Providers Provider Role Specialty Phone number Froylan Louise MD Referring Family Medicine [phone] See the Encounter Report to view Anticoagulation Flowsheet and Dosing Calendar (Go to Encounters tabin chart review, and find the Anticoagulation Therapy Visit) Dosage adjustment made based on physician directed care plan. Diana Nielsen RN documented in this encounter Plan of Treatment Upcoming Encounters Date Type Specialty Care Team Description 05/20/2022 Lab Lab documented as of this encounter Visit Diagnoses Diagnosis Chronic deep vein thrombosis (DVT) of lo wer extremity, unspecified laterality, unspecified vein (H) rn long term care current use of anticoagulant t herapy documented in this encounter Care Teams Sieve Maker Relationship Specialty Start Date End Date Froylan Louise MD PCP - General Family Practice 02/22/14 Froylan Louise MD Assigned PCP 03/13/14 2 Esthela Corea, RN Personal Advocate & Liaison Family Medicine 10/16 (PAL) documented as of this encounter
--- OUTSIDE RECORDS SUMMARY | 2022-05-15 22:22 | XMS_ITS | Encounter Summary ---
:1955 Author Organization [place] [facility] Address [address] [place] [address] Care Team Providers Name Role Phone Froylan Louise MD Primary Care Provider Unavailable Froylan Louise MD Unavailable Unavailable Esthela Corea RN Unavailable Unavailable Encounter Details Date Type Department Care Team Description [address] [facility] Audrey Louise Chronic deep vein thrombosis (DVT) of lower extremity, unspecified laterality, unspecified vein (H); Visit Clinic Chhaya Dubose MD [facility] current use of ant icoagulant therapy [address] [place] [address] Social History Tobacco Use Types [...] containing 4 or more times a w [place] 05/25/2021 alcohol? How many drinks containing alcohol [...] or relatives? How often do you attend muslim or Patient refused 2020 roman catholic services? Do you belong to any clubs or Yes 05/25/2021 organizations such as muslim groups, unions, fraternal or athletic groups, or [...] been in contact with No / Unsure 2020 4:56 PM CDT someone who was confirmed or suspected to have Coronavirus / COVID-19? documented as of this encounter Progress Notes Shaniqua Humphrey RN - 2020 2:54 PM CDT ANTICOAGULATION MANAGEMENT Patient Name: Virgil Christine Date: 2020 ASSESSMENT /SUBJECTIVE: Today's INR result of 3.0 is therapeutic. Goal INR of 2.0-3.0 ??? Warfarin dose taken: Warfarin taken as instructed ??? Diet: No new diet changes affecting INR ??? Medication changes/ interactions: Flexeril prn. ??? Previous INR: Supratherapeutic ??? S/S of bleeding or thromboembolism: No ??? New injury or illness: Recent back injury, sciatica flare up. Patient also mentioned, having some calf pain about 3 weeks ago, which has resolved. Denied any change in extremity color, swelling or SOB. ??? Upcoming surgery, procedure or cardioversion: No ??? Additional findings: Patient would like to explore his hematology history with PCP and consider hematology referral. Reported poor experience at the [facility] back in 2018. [place] Rafting Guide encouraged a f/u with PCP to discuss in great detail. PLAN: Warfarin Dosing Instructions: Continue your current warfarin dose 5 mg every Wed; 7.5 mg all other days Per media review, it does not appear we have patient's [place] hospitalization records on file. Please encouraged patient to request these from outside hospital during next INR appt. Instructed patient to follow up no later than: 3 weeks Lab visit scheduled Education provided: Please call back if any changes to your diet, medications or how you've been taking warfarin, Monitoring for bleeding signs and symptoms, Monitoring for clotting signs and symptoms and Importance of notifying clinic for changes in medications; a sooner lab recheck maybe needed. Telephone call with Virgil whom verbalizes understanding and agrees to plan Instructed to call the Anticoagulation Clinic for any changes, questions or concerns. (#[phone]) Shaniqua Humphrey RN OBJECTIVE: Recent labs: (last 7 days) 12/01/20 1415 INR 3.00* No question data found. Anticoagulation Summary As of 2020 INR goal: 2.0-3.0 TTR: 70.3 % (1 y) INR used for dosin.00 (2020) Warfarin maintenance plan: 5 mg (5 mg x 1) every Wed; 7.5 mg (7.5 mg x 1) all other days Full warfarin instructions: 5 mg every Wed; 7.5 mg all other days Weekly warfarin total: 50 mg Plan last modified: Hilda Burch RN (05/14/2019) Next INR check: Priority: Maintenance Target end date: Indefinite Indications Chronic deep vein thrombosis (DVT) of lower extremity unspecified laterality unspecified vein (H) [I82.509] Long-term (current) use of anticoagulants [Z79.01] [Z79.01] Anticoagulation Episode Summary INR check location: Preferred lab: Send INR reminders to: [facility] Comments: Anticoagulation Care Providers Provider Role Specialty Phone number Froylan Louise MD Referring Family Medicine [phone] So Dodd MD - 2020 2:54 PM CDT Can we assist patient to arrange follow up with PCP . Thanks So Dodd Anival Lundberg RN - 2020 2:54 PM CDT Called and spoke with patient. Patient states that he does NOT have any concerns regarding his IVC filter and no pressing questions at this time. Patient stated that if he had questions he wanted answered by Dr. Louise he knew how to get ahold of him. No appointment scheduled at this time per patient request. 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
--- OUTSIDE RECORDS SUMMARY | 2022-05-15 22:22 | XMS_ITS | Encounter Summary ---
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 How many drinks containing alcohol [...] you attend confucianism or Patient refused 2020 confucianism services? Do [...] been in contact with No / Unsure 10/20/2020 3:30 PM CDT someone who was confirmed or suspected to have Coronavirus / COVID-19? documented as of this encounter Progress Notes Diana Nielsen RN - 10/20/2020 3:40 PM CDT ANTICOAGULATION FOLLOW-UP CLINIC VISIT Patient Name: Virgil Christine Date: 10/20/2020 Contact Type: Telephone SUBJECTIVE: Patient Findings Comments: Patient called [facility]. 2nd therapeutic INR so patient can now stop Lovenox injections. The patient was assessed for diet, medication, and activity level changes, missed or extra doses, bruisingor bleeding, with no problem findings. Reviewed maintenance warfarin dosing with patient. Patient will remain on the same dose until next INR check. No other questions or concerns. Virgil already scheduled for next lab-only INR in 2 weeks. Diana Mukherjee RN Anticoagulation Team Clinical Outcomes Negatives: Major bleeding event, Thromboembolic event, Anticoagulation-related hospital admission, Anticoagulation-related ED visit, Anticoagulation-related fatality Comments: Patient called [facility]. 2nd therapeutic INR so patient can now stop Lovenox injections. The patient was assessed for diet, medication, and activity level changes, missed or extra doses, bruisingor bleeding, with no problem findings. Reviewed maintenance warfarin dosing with patient. Patient will remain on the same dose until next INR check. No other questions or concerns. Virgil already scheduled for next lab-only INR in 2 weeks. Diana Mukherjee RN Anticoagulation Team OBJECTIVE Recent labs: (last 7 days) 10/20/20 1530 INR 2.10* ASSESSMENT / PLAN INR assessment THER Recheck INR In: 2 WEEKS INR Location Clinic Anticoagulation Summary As of 10/20/2020 INR goal: 2.0-3.0 TTR: 79.5 % (1 y) INR used for dosin.10 (10/20/2020) Warfarin maintenance plan: 5 mg (5 mg x 1) every Wed; 7.5 mg (7.5 mg x 1) all other days Full warfarin instructions: 5 mg every Wed; 7.5 mg all other days Weekly warfarin total: 50 mg No change documented: Diana Nielsen RN Plan last modified: Hilda Burch RN (05/14/2019) Next INR check: 11/02/2020 Priority: Maintenance Target end date: Indefinite Indications Chronic deep vein thrombosis (DVT) of lower extremity unspecified laterality unspecified vein (H) [I82.509] Long-term (current) use of anticoagulants [Z79.01] [Z79.01] Anticoagulation Episode Summary INR check location: Preferred lab: Send INR reminders to: [facility] Comments: Anticoagulation Care Providers Provider Role Specialty Phone number Froylan Louise MD Referring Family Medicine [phone] See the Encounter Report to view Anticoagulation [...] wer extremity, unspecified laterality, unspecified vein (H) 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
--- OUTSIDE RECORDS SUMMARY | 2022-05-15 22:22 | XMS_ITS | Encounter Summary ---
:1955 Author Organization [facility] Address [address] [place] [address] Care Team Providers Name Role Phone Froylan Louise MD Primary Care Provider Unavailable Froylan Louise MD Unavailable Unavailable Esthela Corea RN Unavailable Unavailable Encounter Details Date Type Department Care Team Description 11/16/2020 Travel Social History Tobacco Use Types Packs/Day Years Used Date Smoking Tobacco: Former Cigarettes 2 25 Quit : 08/04/2006 Smokeless Tobacco: Never Comments: 2004 Alcohol Use Standard Drinks/Week Comments Yes 0 (1 standard drink = 0.6 oz pure alcoho l) 4 BEERS A WEEK Alcohol Habits Answer Date Recorded How often do you have a drink containing 4 or more times a w [place] 05/25/2021 alcohol? How many drinks containing alcohol [...] or relatives? How often do you attend scientologist or Patient refused 2020 congregation services? Do you belong to any clubs or Yes 05/25/2021 organizations such as scientologist groups, unions, fraternal or athletic groups, or [...] on filedocumented in this encounter Care Teams Cigarette Machines Mechanic Relationship Specialty Start Date End Date Froylan Louise MD PCP - General Family Practice 02/22/14 Froylan Louise MD Assigned PCP 03/13/14 2 Esthela Corea, RN Personal Advocate & Liaison Family Medicine 10/16 (PAL) documented as of this encounter
--- OUTSIDE RECORDS SUMMARY | 2022-05-15 22:22 | XMS_ITS | Encounter Summary ---
:1955 Author Organization [facility] Address [address] [place] [address] Care Team Providers Name Role Phone Froylan Louise MD Primary Care Provider Unavailable Froylan Louise MD Unavailable Unavailable Esthela Corea RN Unavailable Unavailable Encounter Details Date Type Department Care Team Description 11/03/2020 Orders Only [facility] onic deep vein thrombosis (DVT) of lower extremity, unspecified laterality, unspecified vein (H); [facility] current use of ant icoagulants with INR goal of 2.0-3.0 [address] [place] [address] Social History Tobacco Use [...] containing 4 or more times a w [place] 05/25/2021 alcohol? How many drinks containing alcohol [...] been in contact with No / Unsure 11/03/2020 1:47 PM CDT someone who was confirmed or suspected to have Coronavirus / COVID-19? documented as of this encounter Plan of Treatment Upcoming Encounters Date Type Specialty Care Team Description 05/20/2022 Lab Lab documented as of this encounter Procedures Procedure Name Priority Date/Time Associated Diagnosis Comme nts CAPILLARY BLOOD Routine 11/03/2020 1:55 PM Chronic deep vein R esults for this COLLECTION CDT thrombosis (DVT) of procedur e are in lower extremity, the results unspecified section. laterality, unspecified vein (H) INR Routine 11/03/2020 1:55 PM Chronic deep vein Resu lts for this CDT thrombosis (DVT) of procedur e are in lower extremity, the results unspecified section. laterality, unspecified vein (H) [facility] current use of anticoagulants with INR goal of 2.0-3.0 documented in this encounter Results Capillary Blood Collection (11/03/2020 1:55 PM CDT) Patholo gist Method Time Signature Capillary Capillary 11/03/2020 [place] Blood collection 2:10 PM CDT CLINICS Collection performed [place] Specimen Anatomical Collection Method Collection Time Receive d Time (Source) Location / / Volume Laterality 11/03/2020 1:55 PM 2:10 CDT PM CDT Froylan Louise MD LAB - LAB COMMUNICATION Performing Organization Address City/State/ZIP Code Phon e Number [facility] [id number] [place] [address] (ABNORMAL) INR (11/03/2020 1:55 PM CDT) P athologist Signature INR 3.60 (H) 0.86 - 1.14 11/03/2020 [place] 2:11 PM CDT [facility] Comment: This test is intended for monitoring Cou madin therapy. ??Results are not accurate in patients with prolonged INR due to factor deficiency. Specimen Anatomical Collection Method Collection Time Receive d Time (Source) Location / / Volume Laterality Blood specimen 11/03/2020 1:55 PM 021 2:10 (specimen) CDT PM CDT Froylan Louise MD LAB - BLOOD ORDERABLES Performing Organization Address City/State/ZIP Code Phon e Number [facility] [id number] [place] [address] documented in this encounter Visit Diagnoses Diagnosis Chronic deep vein thrombosis (DVT) of lo wer extremity, unspecified laterality, unspecified vein (H) [facility] current use of anticoagulants with INR goal of 2.0-3.0 documented in this encounter Care Teams Iron Pourer Relationship Specialty Start Date End Date Froylan Louise MD PCP - General Family Practice 02/22/14 Froylan Louies MD Assigned PCP 03/13/14 2 Esthela Corea, RN Personal Advocate & Liaison Family Medicine 10/16 (PAL) documented as of this encounter
--- OUTSIDE RECORDS SUMMARY | 2022-05-15 22:22 | XMS_ITS | Encounter Summary ---
:1955 Author Organization [facility] Address [address] [place] [address] Care Team Providers Name Role Phone Froylan Louise MD Primary Care Provider Unavailable Froylan Louise MD Unavailable Unavailable Esthela Corea RN Unavailable Unavailable Encounter Details Date Type Department Care Team Description 12/07/2020 Travel Social History Tobacco Use Types Packs/Day [...] 4 or more times a w [place] 05/25/2021 alcohol? How many drinks containing alcohol [...] you attend methodist or Patient refused 2020 sabianist services? Do [...] been in contact with No / Unsure 12/07/2020 4:34 PM CDT someone who was confirmed or suspected to have Coronavirus / COVID-19? documented as of this encounter Plan of Treatment Upcoming Encounters Date Type Specialty Care Team Description 05/20/2022 Lab Lab documented as of this encounter Visit Diagnoses Not on filedocumented in this encounter Care Teams Director Of Restaurant Relationship Specialty Start Date End Date Froylan Louise MD PCP - General Family Practice 02/22/14 Froylan Louise MD Assigned PCP 03/13/14 2 Esthela Corea, RN Personal Advocate & Liaison Family Medicine 10/16 (PAL) documented as of this encounter
--- OUTSIDE RECORDS SUMMARY | 2022-05-15 22:22 | XMS_ITS | Encounter Summary ---
:1955 Author Organization [facility] Address [address] [place] [address] Care Team Providers Name Role Phone Froylan Louise MD Primary Care Provider Unavailable Froylan Louise MD Unavailable Unavailable Esthela Corea RN Unavailable Unavailable Encounter Details Date Type Department Care Team Description 11/10/2020 [place] [phone] Social History Tobacco Use Types Packs/Day Years Used Date Smoking Tobacco: Former Cigarettes 2 25 Quit : 08/04/2006 Smokeless Tobacco: Never Comments: 2004 Alcohol Use Standard Drinks/Week Comments Yes 0 (1 standard drink = 0.6 oz pure alcoho l) 4 BEERS A WEEK Alcohol Habits Answer Date Recorded How often do you have a drink containing 4 or more times a w [place] 05/25/2021 alcohol? How many drinks containing alcohol [...] you attend jewish or Patient refused 2020 baptist services? Do [...] on filedocumented in this encounter Care Teams Etl Lead Relationship Specialty Start Date End Date Froylan Louise MD PCP - General Family Practice 02/22/14 Froylan Louise MD Assigned PCP 03/13/14 2 Esthela Corea RN Personal Advocate & Liaison Family Medicine 10/16 (PAL) documented as of this encounter
--- OUTSIDE RECORDS SUMMARY | 2022-05-15 22:22 | XMS_ITS | Encounter Summary ---
:1955 Author Organization [facility] Address [address] [place] [address] Care Team Providers Name Role Phone Froylan Louise MD Primary Care Provider Unavailable Froylan Louise MD Unavailable Unavailable Esthela Corea RN Unavailable Unavailable Encounter Details Date Type Department Care Team Description 10/20/2020 Travel Social History Tobacco Use Types Packs/Day [...] you attend taoist or Patient refused 2020 temple services? Do [...] on filedocumented in this encounter Care Teams Delivery Nurse Relationship Specialty Start Date End Date Froylan Louise MD PCP - General Family Practice 02/22/14 Froylan Louise MD Assigned PCP 03/13/14 2 Esthela Corea, RN Personal Advocate & Liaison Family Medicine 10/16 (PAL) documented as of this encounter
--- OUTSIDE RECORDS SUMMARY | 2022-05-15 22:22 | XMS_ITS | Encounter Summary ---
:1955 Author Organization [facility] Address [address] [place] [address] Care Team Providers Name Role Phone Froylan Louise MD Primary Care Provider Unavailable Froylan Louise MD Unavailable Unavailable Esthela Corea RN Unavailable Unavailable Encounter Details Date Type Department Care Team Description 2020 Travel Social History Tobacco Use Types Packs/Day Years Used Date Smoking Tobacco: Former Cigarettes 2 25 Quit : 08/04/2006 Smokeless Tobacco: Never Comments: 2004 Alcohol Use Standard Drinks/Week Comments Yes 0 (1 standard drink = 0.6 oz pure alcoho l) 4 BEERS A WEEK Alcohol Habits Answer Date Recorded How often do you have a drink containing 4 or more times a w [place] 05/25/2021 alcohol? How many drinks containing [...] you attend hinduism or Patient refused 2020 yazdanism services? Do [...] on filedocumented in this encounter Care Teams Supervisor [employer] Relationship Specialty Start Date End Date Froylan Louise MD PCP - General Family Practice 02/22/14 Froylan Louise MD Assigned PCP 03/13/14 2 Esthela Corea, RN Personal Advocate & Liaison Family Medicine 10/16 (PAL) documented as of this encounter
--- OUTSIDE RECORDS SUMMARY | 2022-05-15 22:22 | XMS_ITS | Encounter Summary ---
:1955 Author Organization [facility] Address [address] [place] [address] Care Team Providers Name Role Phone Froylan Louise MD Primary Care Provider Unavailable Froylan Louise MD Unavailable Unavailable Esthela Corea RN Unavailable Unavailable Encounter Details Date Type Department Care Team Description 10/19/2020 Anticoagulation Therapy [facility] Audrey Louise Chronic deep vein thrombosis (DVT) of lower extremity, unspecified laterality, unspecified vein (H); Visit Clinic Chhaya Dubose MD [facility] current use of ant icoagulant therapy [address] [place] [address] Social History Tobacco Use Types [...] containing 4 or more times a w [place] 05/25/2021 alcohol? How many drinks containing alcohol [...] you attend jew or Patient refused 2020 baptism services? Do [...] encounter Progress Notes Diana Nielsen RN - 10/19/2020 4:40 PM CDT Anticoagulation Management Unable to reach Virgil today. Today's INR result of 2.2 is therapeutic (goal INR of 2.0-3.0). Result received from: Clinic Lab Follow up required to confirm warfarin dose taken and assess for changes Patient is bridging and INRshould be at least 2.3, per protocol, to discontinue Lovenox. Can schedule another INR tomorrow and as long as INR is over 2.0 twice in a row can then stop Lovenox. No answer. Left vm to call [phone]. Can transfer to [facility] at [phone]. Left message to continue current dose of warfarin 7.5 mg tonight.And to continue Lovenox injections, schedule another lab tomorrow. Anticoagulation clinic to follow up Diana Nielsen RN Esthela Randhawa RN - 10/19/2020 4:40 PM CDT ANTICOAGULATION FOLLOW-UP CLINIC VISIT Patient Name: Virgil Christine Date: 10/19/2020 Contact Type: Telephone/ Patient called, reports no changes. Orders discussed with the patient, he agrees with the plan, lab INR appointment scheduled on 10/20/20. SUBJECTIVE: Patient Findings Positives: Missed doses (Resent warfarin hold, resumed 10/12/20.), Extra doses (Warfarin boost givento pateint 10/16/20), Change in medications (Patient reports he did not take Lovenox last night or this morning, he will take it this evening and tomorrow morning.) Comments: The patient was assessed for diet, medication, and activity level changes, bruising or bleeding, with no problem findings. Patient was reluctant to have INR checked 10/20/20 but he will. Clinical Outcomes Comments: The patient was assessed for diet, medication, and activity level changes, bruising or bleeding, with no problem findings. Patient was reluctant to have INR checked 10/20/20 but he will. OBJECTIVE Recent labs: (last 7 days) 10/19/20 1455 INR 2.20* ASSESSMENT / PLAN INR assessment THER Recheck INR In: 1 DAY INR Location Outside lab Anticoagulation Summary As of 10/19/2020 INR goal: 2.0-3.0 TTR: 79.5 % (1 y) INR used for dosin.20 (10/19/2020) Warfarin maintenance plan: 5 mg (5 mg x 1) every Wed; 7.5 mg (7.5 mg x 1) all other days Full warfarin instructions: 5 mg every Wed; 7.5 mg all other days Weekly warfarin total: 50 mg Plan last modified: Hilda Burch RN (05/14/2019) Next INR check: 10/20/2020 Priority: High Target end date: Indefinite Indications Chronic deep vein thrombosis (DVT) of lower extremity unspecified laterality unspecified vein (H) [I82.509] Long-term (current) use of anticoagulants [Z79.01] [Z79.01] Anticoagulation Episode Summary INR check location: Preferred lab: Send INR reminders to: [facility] Comments: Anticoagulation Care Providers Provider Role Specialty Phone number Froylan Louise MD Referring Family Medicine [phone] See the Encounter Report to view Anticoagulation Flowsheet and Dosing Calendar (Go to Encounters tabin chart review, and find the Anticoagulation Therapy Visit) Dosage adjustment made based on physician directed care plan. Esthela Randhawa RN documented in this encounter Plan of Treatment Upcoming Encounters Date Type Specialty Care Team Description 05/20/2022 Lab Lab documented as of this encounter Visit Diagnoses Diagnosis Chronic deep vein thrombosis (DVT) of lo wer extremity, unspecified laterality, unspecified vein (H) assisted current use of anticoagulant t herapy documented in this encounter Care Teams Loft Worker Apprentice Relationship Specialty Start Date End Date Froylan Louise MD PCP - General Family Practice 02/22/14 Froylan Louise MD Assigned PCP 03/13/14 2 Bishnu Coreaa M, RN Personal Advocate & Liaison Family Medicine 10/16 (PAL) documented as of this encounter
--- OUTSIDE RECORDS SUMMARY | 2022-05-15 22:22 | XMS_ITS | Encounter Summary ---
:1955 Author Organization [facility] Address [address] [place] [address] Care Team Providers Name Role Phone Froylan Louise MD Primary Care Provider Unavailable Froylan Louise MD Unavailable Unavailable Esthela Corea RN Unavailable Unavailable Encounter Details Date Type Department Care Team Description 12/25/2020 Orders Only [facility] onic deep vein thrombosis (DVT) of lower extremity, unspecified laterality, unspecified vein (H); [facility] current use of ant icoagulants with INR goal of 2.0-3.0 [address] [place] [address] Social History Tobacco Use [...] containing 4 or more times a w [place] 05/25/2021 alcohol? How many drinks containing alcohol [...] you attend catholic or Patient refused 2020 confucianism services? Do [...] Associated Diagnosis Comme nts CAPILLARY BLOOD Routine 12/25/2020 1:44 PM Chronic deep vein R esults for this COLLECTION CDT thrombosis (DVT) of procedur e are in lower extremity, the results unspecified section. laterality, unspecified vein (H) INR Routine 12/25/2020 1:44 PM Chronic deep vein Resu lts for this CDT thrombosis (DVT) of procedur e are in lower extremity, the results unspecified section. laterality, unspecified vein (H) [facility] current use of anticoagulants with INR goal of 2.0-3.0 documented in this encounter Results Capillary Blood Collection (12/25/2020 1:44 PM CDT) Patholo gist Method Time Signature Capillary Capillary 12/25/2020 [place] Blood collection 1:45 PM CDT CLINICS Collection performed [place] Specimen Anatomical Collection Method Collection Time Receive d Time (Source) Location / / Volume Laterality 12/25/2020 1:44 PM 1:45 CDT PM CDT Froylan Louise MD LAB - LAB COMMUNICATION Performing Organization Address City/State/ZIP Code Phon e Number [facility] [phone] [place] [address] (ABNORMAL) INR (12/25/2020 1:44 PM CDT) P athologist Signature INR 2.10 (H) 0.86 - 1.14 12/25/2020 [place] 1:48 PM CDT [facility] Comment: This test is intended for monitoring Cou madin therapy. ??Results are not accurate in patients with prolonged INR due to factor deficiency. Specimen Anatomical Collection Method Collection Time Receive d Time (Source) Location / / Volume Laterality Blood specimen 12/25/2020 1:44 PM 021 1:45 (specimen) CDT PM CDT Froylan Louise MD LAB - BLOOD ORDERABLES Performing Organization Address City/State/ZIP Code Phon e Number [facility] [phone] [place] [address] documented in this encounter Visit Diagnoses Diagnosis Chronic deep vein thrombosis (DVT) of lo wer extremity, unspecified laterality, unspecified vein (H) [facility] current use of anticoagulants with INR goal of 2.0-3.0 documented in this encounter Care Teams Quill Stripper Relationship Specialty Start Date End Date Froylan Louise MD PCP - General Family Practice 02/22/14 Froylan Louise MD Assigned PCP 03/13/14 2 Esthela Corea, RN Personal Advocate & Liaison Family Medicine 10/16 (PAL) documented as of this encounter
--- OUTSIDE RECORDS SUMMARY | 2022-05-15 22:22 | XMS_ITS | Encounter Summary ---
:1955 Author Organization [facility] Address [address] [place] [address] Care Team Providers Name Role Phone Froylan Louise MD Primary Care Provider Unavailable Froylan Louise MD Unavailable Unavailable Esthela Corea RN Unavailable Unavailable Encounter Details Date Type Department Care Team Description 10/20/2020 Orders Only [facility] onic deep vein thrombosis (DVT) of lower extremity, unspecified laterality, unspecified vein (H); [facility] current use of ant icoagulants with INR goal of 2.0-3.0 [address] [place] [address] Social History Tobacco Use [...] containing 4 or more times a w [place] 05/25/2021 alcohol? How many drinks containing alcohol [...] you attend anabaptist or Patient refused 2020 judaism services? Do [...] Associated Diagnosis Comme nts CAPILLARY BLOOD Routine 10/20/2020 3:30 PM Chronic deep vein R esults for this COLLECTION CDT thrombosis (DVT) of procedur e are in lower extremity, the results unspecified section. laterality, unspecified vein (H) INR Routine 10/20/2020 3:30 PM Chronic deep vein Resu lts for this CDT thrombosis (DVT) of procedur e are in lower extremity, the results unspecified section. laterality, unspecified vein (H) [facility] current use of anticoagulants with INR goal of 2.0-3.0 documented in this encounter Results Capillary Blood Collection (10/20/2020 3:30 PM CDT) Patholo gist Method Time Signature Capillary Capillary 10/20/2020 [place] Blood collection 3:34 PM CDT CLINICS Collection performed [place] Specimen Anatomical Collection Method Collection Time Receive d Time (Source) Location / / Volume Laterality 10/20/2020 3:30 PM 3:32 CDT PM CDT Froylan Louise MD LAB - LAB COMMUNICATION Performing Organization Address City/State/ZIP Code Phon e Number [facility] [id number] [place] [address] (ABNORMAL) INR (10/20/2020 3:30 PM CDT) P athologist Signature INR 2.10 (H) 0.86 - 1.14 10/20/2020 [place] 3:37 PM CDT [facility] Comment: This test is intended for monitoring Cou madin therapy. ??Results are not accurate in patients with prolonged INR due to factor deficiency. Specimen Anatomical Collection Method Collection Time Receive d Time (Source) Location / / Volume Laterality Blood specimen 10/20/2020 3:30 PM 021 3:32 (specimen) CDT PM CDT Froylan Louise MD LAB - BLOOD ORDERABLES Performing Organization Address City/State/ZIP Code Phon e Number [facility] [address] [place] [address] documented in this encounter Visit Diagnoses Diagnosis Chronic deep vein thrombosis (DVT) of lo wer extremity, unspecified laterality, unspecified vein (H) [facility] current use of anticoagulants with INR goal of 2.0-3.0 documented in this encounter Care Teams [employer] Agent Relationship Specialty Start Date End Date Froylan Louise MD PCP - General Family Practice 02/22/14 Froylan Louise MD Assigned PCP 03/13/14 2 Esthela Corea, RN Personal Advocate & Liaison Family Medicine 10/16 (PAL) documented as of this encounter
--- OUTSIDE RECORDS SUMMARY | 2022-05-15 22:22 | XMS_ITS | Encounter Summary ---
:1955 Author Organization [facility] Address [address] [place] [address] Care Team Providers Name Role Phone Froylan Louise MD Primary Care Provider Unavailable Froylan Louise MD Unavailable Unavailable Esthela Corea RN Unavailable Unavailable Encounter Details Date Type Department Care Team Description 12/12/2020 Telephone [facility] Froylan Louise Ra, MD [place] [address] [place] [address] Social History Tobacco Use [...] containing 4 or more times a w [place] 05/25/2021 alcohol? How many drinks containing alcohol [...] you attend jew or Patient refused 2020 denominational services? Do [...] on filedocumented in this encounter Care Teams Insole Department Worker Relationship Specialty Start Date End Date Froylan Louise MD PCP - General Family Practice 02/22/14 Froylan Louise MD Assigned PCP 03/13/14 2 Esthela Corea RN Personal Advocate & Liaison Family Medicine 10/16 (PAL) documented as of this encounter
--- OUTSIDE RECORDS SUMMARY | 2022-05-15 22:22 | XMS_ITS | Encounter Summary ---
:1955 Author Organization [facility] Address [address] [place] [address] Care Team Providers Name Role Phone Froylan Louise MD Primary Care Provider Unavailable Froylan Louise MD Unavailable Unavailable Esthela Corea RN Unavailable Unavailable Encounter Details Date Type Department Care Team Description 10/19/2020 Travel Social History Tobacco Use Types Packs/Day Years Used Date Smoking Tobacco: Former Cigarettes 2 25 Quit : 08/04/2006 Smokeless Tobacco: Never Comments: 2004 Alcohol Use Standard Drinks/Week Comments Yes 0 (1 standard drink = 0.6 oz pure alcoho l) 4 BEERS A WEEK Alcohol Habits Answer Date Recorded How often do you have a drink containing 4 or more times a w [place] 05/25/2021 alcohol? How many drinks containing [...] you attend anglican or Patient refused 2020 restorationist services? Do you belong to any clubs [...] on filedocumented in this encounter Care Teams Fisheries Specialist Relationship Specialty Start Date End Date Froylan Louise MD PCP - General Family Practice 02/22/14 Froylan Louise MD Assigned PCP 03/13/14 2 Esthela Corea, RN Personal Advocate & Liaison Family Medicine 10/16 (PAL) documented as of this encounter
--- OUTSIDE RECORDS SUMMARY | 2022-05-15 22:22 | XMS_ITS | Encounter Summary ---
:1955 Author Organization [place] Address [address] [place] [address] Care Team Providers Name Role Phone Froylan Louise MD Primary Care Provider Unavailable Froylan Louise MD Unavailable Unavailable Esthela Corea RN Unavailable Unavailable Encounter Details Date Type Department Care Team Description 11/16/2020 Orders Only [facility] onic deep vein thrombosis (DVT) of lower extremity, unspecified laterality, unspecified vein (H); [facility] current use of ant icoagulants with INR goal of 2.0-3.0 [address] [place] [address] Social History Tobacco Use [...] containing 4 or more times a w [place] 05/25/2021 alcohol? How many drinks containing alcohol [...] attend jehovah's witness or Patient refused 2020 samaritan services? Do [...] Associated Diagnosis Comme nts CAPILLARY BLOOD Routine 11/16/2020 11:20 Chronic deep vein Res ults for this COLLECTION AM CDT thrombosis (DVT) of raisa aldana are in lower extremity, the results unspecified section. laterality, unspecified vein (H) INR Routine 11/16/2020 11:20 Chronic deep vein Result s for this AM CDT thrombosis (DVT) of raisa aldana are in lower extremity, the results unspecified section. laterality, unspecified vein (H) termination clerk current use of anticoagulants with INR goal of 2.0-3.0 documented in this encounter Results Capillary Blood Collection (11/16/2020 11:20 AM CDT) Patholo gist Method Time Signature Capillary Capillary 11/16/2020 [place] Blood collection 12:00 PM CDT CLINICS Collection performed [place] Specimen Anatomical Collection Method Collection Time Receive d Time (Source) Location / / Volume Laterality 11/16/2020 11:20 11/16/2020 AM CDT 12:00 PM CDT Froylan Louise MD LAB - LAB COMMUNICATION Performing Organization Address City/State/ZIP Code Phon e Number [facility] [phone] [place] [address] (ABNORMAL) INR (11/16/2020 11:20 AM CDT) P athologist Signature INR 3.10 (H) 0.86 - 1.14 11/16/2020 [place] 12:02 PM CDT [facility] Comment: This test is intended for monitoring Cou madin therapy. ??Results are not accurate in patients with prolonged INR due to factor deficiency. Specimen Anatomical Collection Method Collection Time Receive d Time (Source) Location / / Volume Laterality Blood specimen 11/16/2020 11:20 (specimen) AM CDT 12:00 PM CDT Froylan Louise MD LAB - BLOOD ORDERABLES Performing Organization Address City/State/ZIP Code Phon e Number [facility] [phone] [place] [address] documented in this encounter Visit Diagnoses Diagnosis Chronic deep vein thrombosis (DVT) of lo wer extremity, unspecified laterality, unspecified vein (H) termination clerk current use of anticoagulants with INR goal of 2.0-3.0 documented in this encounter Care Teams Sap Consultant Relationship Specialty Start Date End Date Froylan Louise MD PCP - General Family Practice 02/22/14 Froylan Louise MD Assigned PCP 03/13/14 2 Esthela Corea, RN Personal Advocate & Liaison Family Medicine 10/16 (PAL) documented as of this encounter
--- OUTSIDE RECORDS SUMMARY | 2022-05-15 22:22 | XMS_ITS | Encounter Summary ---
:1955 Author Organization [facility] Address [address] [place] [address] Care Team Providers Name Role Phone Froylan Louise MD Primary Care Provider Unavailable Froylan Louise MD Unavailable Unavailable Esthela Corea RN Unavailable Unavailable Encounter Details Date Type Department Care Team Description 11/03/2020 Travel Social History Tobacco Use Types Packs/Day [...] you attend restorationist or Patient refused 2020 scientology services? Do [...] on filedocumented in this encounter Care Teams Elevator Tender Relationship Specialty Start Date End Date Froylan Louise MD PCP - General Family Practice 02/22/14 Froylan Louise MD Assigned PCP 03/13/14 2 Esthela Corea, RN Personal Advocate & Liaison Family Medicine 10/16 (PAL) documented as of this encounter
--- OUTSIDE RECORDS SUMMARY | 2022-05-15 22:22 | XMS_ITS | Encounter Summary ---
:1955 Author Organization [facility] Address [address] [place] [address] Care Team Providers Name Role Phone Froylan Louise MD Primary Care Provider Unavailable Froylan Louise MD Unavailable Unavailable Esthela Corea RN Unavailable Unavailable Reason for Visit Reason Comments Allied Health Visit Encounter Details Date Type Department Care Team Description 11/03/2020 Allied Health/Nurse Health [facility] Allied Health Visit Visit [address] [address] Social History Tobacco Use [...] containing 4 or more times a w [place] 05/25/2021 alcohol? How many drinks containing alcohol [...] or relatives? How often do you attend protestant or Patient refused 2020 mandaeism services? Do you belong to any clubs or Yes 05/25/2021 organizations such as protestant groups, unions, fraternal or athletic groups, or [...] Sign Reading Time Taken Comments Blood Pressure 130/74 11/03/2020 2:19 PM CDT Pulse 94 11/03/2020 2:19 PM CDT Temperature - - Respiratory Rate 16 11/03/2020 2:19 PM CDT Oxygen Saturation 98% 11/03/2020 2:19 PM CDT Inhaled Oxygen Concentration - - Weight - - Height - - Body Mass Index - - documented in this encounter Plan of Treatment Upcoming Encounters Date Type Specialty Care Team Description 05/20/2022 Lab Lab documented as of this encounter Visit Diagnoses Diagnosis BP check - Primary Screening for hypertension documented in this encounter Care Teams Summer Law Associate Relationship Specialty Start Date End Date Froylan Louise MD PCP - General Family Practice 02/22/14 Froylan Louise MD Assigned PCP 03/13/14 2 Esthela Corea RN Personal Advocate & Liaison Family Medicine 10/16 (PAL) documented as of this encounter
--- OUTSIDE RECORDS SUMMARY | 2022-05-15 22:22 | XMS_ITS | Encounter Summary ---
:1955 Author Organization [facility] Address [address] [place] [address] Care Team Providers Name Role Phone Froylan Louise MD Primary Care Provider Unavailable Froylan Louise MD Unavailable Unavailable Esthela Corea RN Unavailable Unavailable Reason for Visit Reason Onset Date Comments Hypertension 11/03/2020 nurse Encounter Details Date Type Department Care Team Description 11/03/2020 Telephone [facility] Froylan Louise Ra, Hypertension (nurse) Chhaya [address]ILL[address]OR [address] [place] [address] Social History Tobacco Use [...] you attend moravian or Patient refused 2020 sabianist services? Do [...] this encounter Miscellaneous Notes Telephone Encounter - Berto Daniel CMA - 11/03/2020 2:23 PM CDT Vital Signs 10/12/2020 10/12/2020 10/12/2020 10/12/2020 10/12/2020 Systolic 143 124 120 Diastolic 82 86 94 Pulse 64 72 66 63 81 Temperature Respirations 15 27 22 18 Weight (LB) Height BMI (Calculated) Pain O2 97 94 92 94 Vital Signs 10/12/2020 10/12/2020 10/16/2020 11/03/2020 Systolic 147 130 Diastolic 90 74 Pulse 71 88 91 94 Temperature 98 Respirations 19 17 17 16 Weight (LB) 251 lb Height 6' 0 BMI (Calculated) 34.04 Pain O2 94 95 96 98 Pt sat for 8 minutes, BP was better, NO call is needed.Berto Daniel CMA ACT done too documented in this encounter Plan of Treatment Upcoming Encounters Date Type Specialty Care Team Description 05/20/2022 Lab Lab documented as of this encounter Visit Diagnoses Not on filedocumented in this encounter Care Teams Prize Fighter Relationship Specialty Start Date End Date Froylan Louise MD PCP - General Family Practice 02/22/14 Froylan Louise MD Assigned PCP 03/13/14 2 Esthela Corea RN Personal Advocate & Liaison Family Medicine 10/16 (PAL) documented as of this encounter
--- OUTSIDE RECORDS SUMMARY | 2022-05-15 22:22 | XMS_ITS | Encounter Summary ---
:1955 Author Organization [place] Address [address] [place] [address] Care Team Providers Name Role Phone Froylan Louise MD Primary Care Provider Unavailable Froylan Louise MD Unavailable Unavailable Esthela Corea RN Unavailable Unavailable Reason for Visit Reason Comments Medication Refill Encounter Details Date Type Department Care Team Description 10/25/2020 Refill [facility] Froylan Louise Ra, MD Medication Refill [address] [address] Social History Tobacco Use [...] you attend jain or Patient refused 2020 jewish services? Do you belong to any clubs [...] encounter Miscellaneous Notes Telephone Encounter - Stevo Tohrne RN - 10/26/2020 9:41 AM CDT Warfarin Prescription approved per [facility] Refill Protocol. Rosmery Thorne RN [facility] Anticoagulation Clinic [facility] [place] Telephone Encounter - Wendi Lindsay RN - 10/26/2020 8:41 AM CDT Routing refill request to provider for review/approval because: Drug not on the [facility] refill protocol Routing to [facility] as well Wendi Lindsay RN, BSN documented in this encounter Plan of Treatment Upcoming Encounters Date Type Specialty Care Team Description 05/20/2022 Lab Lab documented as of this encounter Visit Diagnoses Diagnosis Lichen planus Acute deep vein thrombosis (DVT) of prox imal vein of both lower extremities (H) H/O ulcerative colitis Personal history of other diseases of di gestive system documented in this encounter Care Teams Stick Inserter Relationship Specialty Start Date End Date Froylan Louise MD PCP - General Family Practice 02/22/14 Froylan Louise MD Assigned PCP 03/13/14 2 Esthela Corea RN Personal Advocate & Liaison Family Medicine 10/16 (PAL) documented as of this encounter
--- OUTSIDE RECORDS SUMMARY | 2022-05-15 22:22 | XMS_ITS | Encounter Summary ---
:1955 Author Organization [facility] Address [address] [place] [address] Care Team Providers Name Role Phone Froylan Louise MD Primary Care Provider Unavailable Froylan Louise MD Unavailable Unavailable Esthela Corea RN Unavailable Unavailable Encounter Details Date Type Department Care Team Description 11/03/2020 Anticoagulation Therapy [facility] Audrey Louise Chronic deep vein thrombosis (DVT) of lower extremity, unspecified laterality, unspecified vein (H); Visit Clinic Chhaya Dubose MD senior living current use of ant icoagulant therapy [address] [place] [address] Social History Tobacco Use Types [...] containing 4 or more times a w [place] 05/25/2021 alcohol? How many drinks containing alcohol [...] you attend episcopal or Patient refused 2020 mormon services? Do [...] / COVID-19? documented as of this encounter Patient Instructions Patient InstructionsCalMirna gaines RN - 11/03/2020 3:28 PM CDT Some signs and symptoms of bleeding include: Nose bleed or cut that does not stop bleeding in 10 minutes, bleeding of the gums, vomiting (will look like coffee grounds) or coughing up blood, unusual, easy or large areas of bruising, increased or unexpected vaginal bleeding or increased menstrual flow,red or black stools, red or orange urine, prolonged or severe headache, pale skin, unusual or constant tiredness. If you have these please call 911 or seek medical care immediately. Some signs and symptoms of clots include: pain or tenderness in arm or leg, swelling in arm or leg, changes in skin color, or area is warm to touch, shortness or breath, trouble breathing. Numbness or weakness especially on 1 side of the body, sudden trouble speaking or swallowing, sudden trouble seeing, sudden confusion, dizzy spells or headache. If you have these please call 911 or seek medical care immediately. documented in this encounter Progress Notes Mirna Villa RN - 11/03/2020 3:28 PM CDT Images from the original note were not included. ANTICOAGULATION MANAGEMENT Patient Name: Virgil Christine Date: 11/03/2020 ASSESSMENT /SUBJECTIVE: Today's INR result of 3.60 is supratherapeutic. Goal INR of 2.0-3.0 ??? Warfarin dose taken: Friday he possibly took a double dose. ??? Diet: No new diet changes affecting INR ??? Medication changes/ interactions: No new medications/supplements affecting INR ??? Previous INR: Therapeutic ??? S/S of bleeding or thromboembolism: No ??? New injury or illness: No ??? Upcoming surgery, procedure or cardioversion: No ??? Additional findings: None PLAN: Telephone call with Virgil regarding INR result and instructed: Warfarin Dosing Instructions: 2.5 mg today then continue your current warfarin dose of 5 mg Wed; 7.5mg all other days Instructed patient to follow up no later than: 2 weeks Lab visit scheduled Education provided: None required Virgil verbalizes understanding and agrees to warfarin dosing plan. Instructed to call the Anticoagulation Clinic for any changes, questions or concerns. (#[phone]) Mirna Villa RN OBJECTIVE: Recent labs: (last 7 days) 11/03/20 1355 INR 3.60* INR assessment SUPRA Recheck INR In: 2 WEEKS INR Location Clinic Anticoagulation Summary As of 11/03/2020 INR goal: 2.0-3.0 TTR: 77.9 % (1 y) INR used for dosin.60 (11/03/2020) Warfarin maintenance plan: 5 mg (5 mg x 1) every Wed; 7.5 mg (7.5 mg x 1) all other days Full warfarin instructions: 11/03: 2.5 mg; Otherwise 5 mg every Wed; 7.5 mg all other days Weekly warfarin total: 50 mg Plan last modified: Hilda Burch RN (05/14/2019) Next INR check: 11/17/2020 Priority: Maintenance Target end date: Indefinite Indications Chronic deep vein thrombosis (DVT) of lower extremity unspecified laterality unspecified vein (H) [I82.509] Long-term (current) use of anticoagulants [Z79.01] [Z79.01] Anticoagulation Episode Summary INR check location: Preferred lab: Send INR reminders to: [facility] Comments: Anticoagulation Care Providers Provider Role Specialty Phone number rFoylan Louise MD Referring Family Medicine [phone] documented in this encounter Plan of Treatment Upcoming Encounters Date Type Specialty Care Team Description 05/20/2022 Lab Lab documented as of this encounter Visit Diagnoses Diagnosis Chronic deep vein thrombosis (DVT) of lo wer extremity, unspecified laterality, unspecified vein (H) senior living current use of anticoagulant t herapy documented in this encounter Care Teams Air Sealing Technician Relationship Specialty Start Date End Date Froylan Louise MD PCP - General Family Practice 02/22/14 Froylan Louise MD Assigned PCP 03/13/14 2 Esthela Corea, RN Personal Advocate & Liaison Family Medicine 10/16 (PAL) documented as of this encounter
--- OUTSIDE RECORDS SUMMARY | 2022-05-15 22:23 | XMS_ITS | Encounter Summary ---
:1955 Author Organization [facility] Address [facility] [place] [address] Care Team Providers Name Role Phone Froylan Louise MD Primary Care Provider Unavailable Froylan Louise MD Unavailable Unavailable Encounter Details Date Type Department Care Team Description 09/18/2020 Anticoagulation Therapy [facility] Audrey Louise Chronic deep vein thrombosis (DVT) of lower extremity, unspecified laterality, unspecified vein (H); Visit Clinic Chhaya Dubose MD group home current use of ant icoagulant therapy [address] [place] [address] Social History Tobacco Use Types [...] attend jehovah's witness or Patient refused 2020 confucianism services? Do [...] been in contact with No / Unsure 09/18/2020 3:13 PM CDT someone who was confirmed or suspected to have Coronavirus / COVID-19? documented as of this encounter Progress Notes Diana Nielsen RN - 09/18/2020 5:13 PM CDT ANTICOAGULATION FOLLOW-UP CLINIC VISIT Patient Name: Virgil Christine Date: 09/18/2020 Contact Type: Telephone SUBJECTIVE: Patient Findings Positives: Upcoming invasive procedure (pouchoscopy 10/12/20) Comments: Called patient to discuss today's INR results: The patient was assessed for diet, medication, and activity level changes, missed or extra doses, bruising or bleeding, with no problem findings. Patient is continuing with more activity, healthy eating and less beer. Reviewed maintenance warfarin dosing with patient. Patient will remain on the same dose until next INR check in 2 weeks. He hasa pouchoscopy scheduled 10/12/20. Sent hold/bridge assessment request to Antonieta Randhawa RP. Patient has bridged with Lovenox in the past. Will review with patient at next INR. Diana Mukherjee RN Anticoagulation Team Clinical Outcomes Negatives: Major bleeding event, Thromboembolic event, Anticoagulation-related hospital admission, Anticoagulation-related ED visit, Anticoagulation-related fatality Comments: Called patient to discuss today's INR results: The patient was assessed for diet, medication, and activity level changes, missed or extra doses, bruising or bleeding, with no problem findings. Patient is continuing with more activity, healthy eating and less beer. Reviewed maintenance warfarin dosing with patient. Patient will remain on the same dose until next INR check in 2 weeks. He hasa pouchoscopy scheduled 10/12/20. Sent hold/bridge assessment request to Antonieta Randhawa RPH. Patient has bridged with Lovenox in the past. Will review with patient at next INR. Diana Mukherjee RN Anticoagulation Team OBJECTIVE Recent labs: (last 7 days) 09/18/20 1510 INR 2.90* ASSESSMENT / PLAN INR assessment THER Recheck INR In: 2 WEEKS INR Location Clinic Anticoagulation Summary As of 09/18/2020 INR goal: 2.0-3.0 TTR: 79.1 % (1 y) INR used for dosin.90 (09/18/2020) Warfarin maintenance plan: 5 mg (5 mg x 1) every Wed; 7.5 mg (7.5 mg x 1) all other days Full warfarin instructions: 10/07: Hold; 10/08: Hold; 10/09: Hold; 10/10: Hold; 10/11: Hold; Otherwise 5 mg every Wed; 7.5 mg all other days Weekly warfarin total: 50 mg Plan last modified: Hilda Burch RN (05/14/2019) Next INR check: 10/06/2020 Priority: Maintenance Target end date: Indefinite Indications Chronic deep vein thrombosis (DVT) of lower extremity unspecified laterality unspecified vein (H) [I82.509] Long-term (current) use of anticoagulants [Z79.01] [Z79.01] Anticoagulation Episode Summary INR check location: Preferred lab: Send INR reminders to: [facility] Comments: Anticoagulation Care Providers Provider Role Specialty Phone number Froylan Louise MD Referring Family Medicine [phone] See the Encounter Report to view Anticoagulation [...] vein (H) group home current use of anticoagulant t herapy documented in this encounter Care Teams Sheep Clipper Relationship Specialty Start Date End Date Froylan Louise MD PCP - General Family Practice 02/22/14 Froylan Louise MD Assigned PCP 03/13/14 2 documented as of this encounter
--- OUTSIDE RECORDS SUMMARY | 2022-05-15 22:23 | XMS_ITS | Encounter Summary ---
:1955 Author Organization [place] Address [address] [place] [address] Care Team Providers Name Role Phone Froylan Louise MD Primary Care Provider Unavailable Froylan Louise MD Unavailable Unavailable Reason for Visit Reason Onset Date Comments Anticoagulation 10/13/2020 Encounter Details Date Type Department Care Team Description 10/13/2020 Telephone [facility] Froylan Louise Ra, MD [address] [address] Social History Tobacco Use [...] 4 or more times a w [place] 05/25/2021 alcohol? How many drinks containing alcohol [...] attend jehovah's witness or Patient refused 2020 rastafari services? Do [...] been in contact with No / Unsure 10/12/2020 9:55 AM CDT someone who was confirmed or suspected to have Coronavirus / COVID-19? documented as of this encounter Miscellaneous Notes Telephone Encounter - Stevo Thorne RN - 10/13/2020 11:22 AM CDT ANTICOAGULATION MANAGEMENT: Discharge Review Virgil Christine chart reviewed for anticoagulation continuity of care Outpatient surgery/procedure on 10/12/20 for Pouchoscopy. Discharge disposition: Home Results: Recent labs: (last 7 days) 10/06/20 1524 INR 2.50* Anticoagulation inpatient management: not applicable Anticoagulation discharge instructions: Warfarin dosing: home regimen continued Bridging: bridging with enoxaparin (Lovenox) INR goal change: No Medication changes affecting anticoagulation: No Additional factors affecting anticoagulation: No Plan No adjustment to anticoagulation plan needed Patient not contacted No adjustment to Anticoagulation Calendar was required Stevo Thorne RN documented in this encounter Plan of Treatment Upcoming Encounters Date Type Specialty Care Team Description 05/20/2022 Lab Lab documented as of this encounter Visit Diagnoses Not on filedocumented in this encounter Care Teams Test Boring Crew Chief Relationship Specialty Start Date End Date Froylan Louise MD PCP - General Family Practice 02/22/14 Froylan Louise MD Assigned PCP 03/13/14 2 documented as of this encounter
--- OUTSIDE RECORDS SUMMARY | 2022-05-15 22:23 | XMS_ITS | Encounter Summary ---
:1955 Author Organization [place] Address [facility] [place] [address] Care Team Providers Name Role Phone Froylan Louise MD Primary Care Provider Unavailable Froylan Louise MD Unavailable Unavailable Reason for Visit Auth/Cert Specialty Diagnoses / Procedures Referred By Contact Refer red To Contact Gastroenterology Diagnoses Ulcerative colitis (H) Ulcerative colitis (H) [K51.90] Endoscopy Procedures HC ENDO EVAL SM INT POUCH DIAGNOSTIC HC ENDO EVAL SM INT POUCH W BIOPSY POUCHOSCOPY [address] [place] [address] Phone: Referral ID Status Reason Start Date Expiration Date Visits Requ ested Visits Authorized [id number] 1 1 Encounter Details Date Type Department Care Team Description 10/12/2020 Surgery [facility] Chase Rutherford MD POUCHOSCOPY Endoscopy [facility] [address] [place] [phone] [place] [id number] (Wo rk) Surgery Details Date/Time Status Location OR Service Patient Class Case Case Trauma Class Type Case? 10/12/20 10:30 Posted GI GI 03 [place] Outpatient AM Panel 1 Procedure LRB Anes Op Region Wound Class Commen ts POUCHOSCOPY N/A Conscious Sedation Anus II-Clean Contami nated Surgeon Surgeon Role Service Panel Chase Suazo MD Primary [place] 1 documented in this encounter Social History [...] or relatives? How often do you attend taoism or Patient refused 2020 religion services? Do you belong to any clubs or Yes 05/25/2021 organizations such as taoism groups, unions, fraternal or athletic groups, or [...] Sign Reading Time Taken Comments Blood Pressure 124/86 10/12/2020 11:00 AM CDT Pulse 66 10/12/2020 11:00 AM CDT Temperature - - Respiratory Rate 27 10/12/2020 11:00 AM CDT Oxygen Saturation 94% 10/12/2020 11:00 AM CDT Inhaled Oxygen Concentration - - Weight 114.3 kg (252 lb) 10/12/2020 10:10 AM CDT Height 182.9 cm (6') 10/12/2020 10:10 AM CDT Body Mass Index 34.18 10/12/2020 10:10 AM CDT documented in this encounter Medications at Time [...] Bedtime enoxaparin ANTICOAGULANT Inject 0.4 mLs (40 4 mL 1 12/12/2020 (LOVENOX) 40 MG/0.4ML mg) Subcutaneous syringeIndications: daily Hold day of Chronic deep vein procedure. Restart thrombosis (DVT) of lower 24-48 hours after extremity, unspecified procedure, as laterality, unspecified advised by vein (H), extermination inspector provider. Then current use of continue daily anticoagulant therapy injections until INR 2.3 or higher (or >2.0 twice, 24 hours apart). Otmyeuawpfg-Uiomptdpw-Aoie Inhale 1 puff into 1 Inhaler 11 1 07/27/2019 01/12/2021 nterol (TRELEGY ELLIPTA) the lungs daily 100-62.5-25 MCG/INH oral inhalerIndications: Moderate persistent asthma without complication hydrochlorothiazide TAKE 1 TABLET BY 90 tablet 1 10/03/2020 10/16/2020 (HYDRODIURIL) 25 MG MOUTH EVERY DAY tabletIndications: Essential hypertension lactobacillus rhamnosus, Take 1 packet by 0 05/25/2021 GG, (CULTURELL KIDS) mouth 2 times packet daily loperamide (IMODIUM) 2 MG TAKE 3-4 CAPSULES 480 capsule 1 10/26/2020 capsuleIndications: H/O (6-8 MG) BY MOUTH ulcerative [...] (KENALOG) APPLY TO AFFECTED 30 g 1 07/3110/26/2020 0.1 % external AREA TWICE A DAY creamIndications: Lichen planus warfarin ANTICOAGULANT TAKE 5MG TABLET ON 78 tablet 1 07/2010/26/2020 (COUMADIN) 7.5 MG EVERY WED AND tabletIndications: Acute 7.5MG TABLET ON deep vein thrombosis (DVT) ALL OTHER DAYS OF of proximal vein of both THE WEEK. lower extremities (H) zolpidem ER (AMBIEN CR) TAKE 1 TABLET BY 30 tablet 0 202002/27/2021 12.5 MG CR MOUTH EVERY DAY AT tabletIndications: BEDTIME NEEDED Insomnia, unspecified type FOR SLEEP documented as of this encounter Plan of Treatment Upcoming Encounters Date Type Specialty Care Team Description 05/20/2022 Lab Lab documented as of this encounter Procedures Procedure Name Priority Date/Time Associated Comments Diagnosis ENDOSCOPY, POUCH, 10/12/2020 10:30 AM Ulcerative colit is DIAGNOSTIC CDT (H) PROVGI - PROVATION Routine 10/12/2020 10:16 AM Re sults for this GI EXAM CDT procedure are i n the results section. documented in this encounter Results PROVGI - PROVATION GI EXAM (10/12/2020 10:16 AM CDT) [facility] Method Time Signature [facility] RADIOLOGY [facility] Endoscopy Department RESULTS Patient Name: Virgil Christine ?Procedure Date: 10/12/2020 10:16 AM ? Accou nt Number: [id number] Date of : 1955 ?Admit Type: Out patient Age: 64 ? Room: 3 Note Status: Finalized ?Attending MD: Chase Suazo MD Total Sedation Time: ?Instrument Name: 412 [id number] Flex Sig Procedure: ?Pouchoscopy Indications: ?History of total proctocolectomy, Post-operative ?assessment Providers: ?Chase Suazo MD, Stephanie Mckoy RN Referring MD: ? Froylan Louise MD Medicines: ?Midazolam 4 mg IV, Fentanyl 150 micrograms IV, ?Diphenhydramine 25 mg IV. The MD provided 15 ?minutes of 1:1 continuous bedside monitoring. Complications: ?No immediate complications. Procedure: ?Pre-Anesthesia Assessment: ?- Prior to the procedure, a History and Physical ?was performed, and patient medications and ?allergies were reviewed. The patient is competent. ?The risks and benefits of the procedure and the ?sedation options and risks were discussed with the ?patient. All questions were answered and informed ?consent was obtained. Patient identification and ?proposed procedure were verified by the physician ?in the endoscopy suite. Mental Status Examination: ?alert and oriented. Airway Examination: normal ?oropharyngeal airway and neck mobility. Respiratory ?Examination: clear to auscultation. CV Examination: ?normal. Prophylactic Antibiotics: The patient does ?not require prophylactic antibiotics. Prior ?Anticoagulants: The patient has taken no previous ?anticoagulant or antiplatelet agents. ASA Grade ?Assessment: II - A patient with mild systemic ?disease. After reviewing the risks and benefits, ?the patient was deemed in satisfactory condition to ?undergo the procedure. The anesthesia plan was to ?use moderate sedation / analgesia (conscious ?sedation). Immediately prior to administration of ?medications, the patient was re-assessed for ?adequacy to receive sedatives. The heart rate, ?respiratory rate, oxygen saturations, blood ?pressure, adequacy of pulmonary ventilation, and ?response to care were monitored throughout the ?procedure. The physical status of the patient was ?re-assessed after the procedure. ?After obtaining informed consent, the endoscope was ?passed under direct vision. Throughout the ?procedure, the patient's blood pressure, pulse, and ?oxygen saturations were monitored continuously. The ?Colonoscope was introduced through the ileoanal ?anastomosis via the anus and advanced to the ?ileoanal pouch and into the kandace-terminal ileum. The ?procedure was performed without difficulty. The ?patient tolerated the procedure well. The quality ?of the bowel preparat ion was good. ? Findings: ? The perianal exam findings include perianal fistula. ? A post-surgical anast omosis was found on digital exam. This was found to ? be stenosed. Pertinent negatives include normal sphin cter tone. ? The kandace-terminal ileum appeared normal. ? The j-pouch appeared normal. ? There was evidence of a prior ile al pouch-anal anastomosis in the anus. ? This was patent and was character ized by mild stenosis. The anastomosis ? was traversed. ? The exam was otherwise without abnormality. ? Impression: ? 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 ?- Stenosed post-surgical anastomosis found on ?digital exam. ?- The examined portion of the ileum was normal. ?- The j-pouch is norm al. ?- Patent ileal pouch-anal anastomosis, ?characterized by mild stenosis. ?- The examination was otherwise normal. ?- No specimens collec ilana. Recommendation: ? - Discharge patient to home. ?- Patient has a contact number available for ?emergencies. The signs and symptoms of potential ?delayed complications were discussed with the ?patient. Return to normal activities tomorrow. ?Written discharge instructions were provided to the ?patient. ?- Resume previous t. ?- Repeat post-surgical lower GI endoscopy in 2 ?years for surveillanc e. ? Procedure Code(s): ? --- Professional --- ? 55010, Endoscopic evaluation of s mall intestinal pouch (eg, Kock pouch, ? ileal reservoir [S or J]); diagnostic, including kashmir ection of ? specimen(s) by brushing or washin g, when performed (separate procedure) Diagnosis Code(s): ? --- Professional --- ? K60.3, Anal fistula ? Z98.0, Intestinal bypass and anastomosis status ? Z90.49, Acquired absence of other specified parts o f digestive tract ? Z09, Encounter for follow-up examination after completed treatment for ? conditions other than malignant neoplasm CPT copyright 2019 [employer]. All rights reserved. The codes documented in this report are prelimin dillon and upon liquefied petroleum gasfitter review may be revised to meet current compliance requirements. Chase Suazo MD 10/12/2020 11:02:02 AM I was physically present for the entire viewing portion of t he exam. Cahse Suazo MD Number of Addenda: 0 Note Initiated On: 10/12/2020 10:16 AM MRN: ?[id number] Procedure Date: ? 10/12/2020 10:16:47 AM Total Procedure Duration: 0 hours 5 minutes 15 seconds Estimated Blood Loss: ? Scope In: 10:45:02 AM Scope Out: 10:50:17 AM Specimen (Source) Anatomical Collection Method Collection Time Re ceived Time Location / / Volume Laterality 10/12/2020 10:16 AM CDT Froylan Louise MD PROCEDURES Performing Organization Address City/State/ZIP Code Phon e Number RADIOLOGY RESULTS documented in this encounter Visit Diagnoses Diagnosis Ulcerative colitis (H) Ulcerative colitis, unspecified documented in this encounter Administered Medications Inactive Administered Medications - up to 3 most recent administrations Medication Order MAR Action Action Date Dose Rate Site diphenhydrAMINE (BENADRYL) Given 10/12/2020 10:43 AM CDT 25 mg injection Intravenous, PRN, Starting on Herlinda 10/12/20 at 1043 fentaNYL (PF) (SUBLIMAZE) injection Given 10/12/2020 10:44 AM CDT 50 mcg Intravenous, PRN, Administer over 3-5 Minutes, Starting on Herlinda 10/12/20 at 1039 Given 10/12/2020 10:39 AM CDT 100 mcg midazolam (VERSED) injection Given 10/12/2020 10:46 AM CDT 1 mg Intravenous, Administer over 2 Minutes, PRN, Starting on Herlinda 10/12/20 at 1039 Given 10/12/2020 10:42 AM CDT 1 mg Given 10/12/2020 10:39 AM CDT 2 mg documented in this encounter Active and Recently Administered Medications Times are shown in CDT. PRN Medication Order 10/10/2020 10/11/2020 10/12/2020 diphenhydrAMINE (BENADRYL) injection (COMPLETED) 1043 (Given - Provider: Amaya Mckoy RN) Intravenous, PRN, Starting on Herlinda 10/12/20 at 1043 fentaNYL (PF) (SUBLIMAZE) injection (COMPLETED) 1039 (Given - Provider: Amaya Mckoy RN)1044 (Given - Provider: Amaya Mckoy RN) Intravenous, PRN, Administer over 3-5 Minutes, Starting on T hu 10/12/20 at 1039 midazolam (VERSED) injection (COMPLETED) 1039 (Given - Provider: Amaya Mckoy RN)1042 (Given - Provider: Amaya Mckoy RN)1046 (Given - Provider: Amaya Mckoy RN) Intravenous, Administer over 2 Minutes, PRN, Starting on Herlinda 09/22 08/13 at 1039 documented in this encounter Care Teams Bed Control Specialist Relationship Specialty Start Date End Date Froylan Louise MD PCP - General Family Practice 02/22/14 Froylan Louise MD Assigned PCP 03/13/14 2 documented as of this encounter
--- OUTSIDE RECORDS SUMMARY | 2022-05-15 22:23 | XMS_ITS | Encounter Summary ---
:1955 Author Organization [place] Address [facility] [place] [address] Care Team Providers Name Role Phone Froylan Louise MD Primary Care Provider Unavailable Froylan Louise MD Unavailable Unavailable Encounter Details Date Type Department Care Team Description 09/18/2020 Orders Only [facility] onic deep vein thrombosis (DVT) of lower extremity, unspecified laterality, unspecified vein (H); [facility] roasterman current use of ant icoagulants with INR goal of 2.0-3.0 [address] [place] [address] Social History Tobacco [...] you attend denominational or Patient refused 2020 buddhist services? Do [...] Associated Diagnosis Comme nts CAPILLARY BLOOD Routine 09/18/2020 3:10 PM Chronic deep vein R esults for this COLLECTION CDT thrombosis (DVT) of procedur e are in lower extremity, the results unspecified section. laterality, unspecified vein (H) INR Routine 09/18/2020 3:10 PM Chronic deep vein Resu lts for this CDT thrombosis (DVT) of procedur e are in lower extremity, the results unspecified section. laterality, unspecified vein (H) correction current use of anticoagulants with INR goal of 2.0-3.0 documented in this encounter Results Capillary Blood Collection (09/18/2020 3:10 PM CDT) Patholo gist Method Time Signature Capillary Capillary 09/18/2020 [place] Blood collection 3:15 PM CDT CLINICS Collection performed [facility] Specimen Anatomical Collection Method Collection Time Receive d Time (Source) Location / / Volume Laterality 09/18/2020 3:10 PM 3:15 CDT PM CDT Froylan Louise MD LAB - LAB COMMUNICATION Performing Organization Address City/State/ZIP Code Phon e Number [facility] [id number] [place] [address] (ABNORMAL) INR (09/18/2020 3:10 PM CDT) P athologist Signature INR 2.90 (H) 0.86 - 1.14 09/18/2020 [place] 3:26 PM CDT [facility] Comment: This test is intended for monitoring Cou madin therapy. ??Results are not accurate in patients with prolonged INR due to factor deficiency. Specimen Anatomical Collection Method Collection Time Receive d Time (Source) Location / / Volume Laterality Blood specimen 09/18/2020 3:10 PM 021 3:15 (specimen) CDT PM CDT Froylan Louise MD LAB - BLOOD ORDERABLES Performing Organization Address City/State/ZIP Code Phon e Number [facility] [id number] [place] [address] documented in this encounter Visit Diagnoses Diagnosis Chronic deep vein thrombosis (DVT) of lo wer extremity, unspecified laterality, unspecified vein (H) roasterman current use of anticoagulants with INR goal of 2.0-3.0 documented in this encounter Care Teams Gis Consultant Relationship Specialty Start Date End Date Froylan Louise MD PCP - General Family Practice 02/22/14 Froylan Louise MD Assigned PCP 03/13/14 2 documented as of this encounter
--- OUTSIDE RECORDS SUMMARY | 2022-05-15 22:23 | XMS_ITS | Encounter Summary ---
:1955 Author Organization [place] Address [address] [place] [address] Care Team Providers Name Role Phone Froylan Louise MD Primary Care Provider Unavailable Froylan Louise MD Unavailable Unavailable Encounter Details Date Type Department Care Team Description 10/06/2020 Travel Social History Tobacco Use Types Packs/Day [...] 4 or more times a w [place] 05/25/2021 alcohol? How many drinks containing alcohol [...] you attend amish or Patient refused 2020 latter-day services? Do [...] been in contact with No / Unsure 10/06/2020 3:18 PM CDT someone who was confirmed or suspected to have Coronavirus / COVID-19? documented as of this encounter Plan of Treatment Upcoming Encounters Date Type Specialty Care Team Description 05/20/2022 Lab Lab documented as of this encounter Visit Diagnoses Not on filedocumented in this encounter Care Teams Metropolitan Editor Relationship Specialty Start Date End Date Froylan Louise MD PCP - General Family Practice 02/22/14 Froylan Louise MD Assigned PCP 03/13/14 2 documented as of this encounter
--- OUTSIDE RECORDS SUMMARY | 2022-05-15 22:23 | XMS_ITS | Encounter Summary ---
:1955 Author Organization [place] Address [address] [place] [address] Care Team Providers Name Role Phone Froylan Louise MD Primary Care Provider Unavailable Froylan Louise MD Unavailable Unavailable Reason for Visit Reason Onset Date Comments Anticoagulation 10/13/2020 Encounter Details Date Type Department Care Team Description 10/13/2020 Telephone [facility] Froylan Louise Ra, MD [address] [address] Social History Tobacco Use [...] containing 4 or more times a w [place] 05/25/2021 alcohol? How many drinks containing alcohol [...] you attend hindu or Patient refused 2020 orthodoxy services? Do [...] Encounter - Stevo Thorne RN - 10/13/2020 4:17 PM CDT Spoke with patient, he forgot lovenox this am. Is wondering if he should make up dose. Only taking q24 so easier to make up a shot. He will plan to still take todays dose even though its later in the day and take tomorrow as scheduled. Rosmery Thorne RN [facility] Prior Maurizio Tovar Savage Telephone Encounter - Arabella Murrieta RN - 10/13/2020 3:42 PM CDT Patient left Vm stating that he forgot to take his Lovenox injection this AM and asking if it is ok to take it now? Please call patient MINO documented in this encounter Plan of Treatment Upcoming Encounters Date Type Specialty Care Team Description 05/20/2022 Lab Lab documented as of this encounter Visit Diagnoses Not on filedocumented in this encounter Care Teams Clinical Trial Educator Relationship Specialty Start Date End Date Froylan Louise MD PCP - General Family Practice 02/22/14 Froylan Louise MD Assigned PCP 03/13/14 2 documented as of this encounter
--- OUTSIDE RECORDS SUMMARY | 2022-05-15 22:23 | XMS_ITS | Encounter Summary ---
:1955 Author Organization [place] Address [address] [place] [address] Care Team Providers Name Role Phone Froylan Louise MD Primary Care Provider Unavailable Froylan Louise MD Unavailable Unavailable Reason for Visit Reason Comments Medication Refill Encounter Details Date Type Department Care Team Description 09/06/2020 Refill [facility] Froylan Louise Ra, MD Medication Refill [address] [address] Social History Tobacco Use [...] containing 4 or more times a w [place] 05/25/2021 alcohol? How many drinks containing alcohol [...] you attend muslim or Patient refused 2020 yazidi services? Do [...] been in contact with No / Unsure 09/03/2020 9:00 AM CDT someone who was confirmed or suspected to have Coronavirus / COVID-19? documented as of this encounter Miscellaneous Notes Telephone Encounter - Regina Wise RN - 09/06/2020 9:46 AM CDT Routing refill request to provider for review/approval because: Drug interaction warning Patient does have Tadalafil, Vardenafil, or Sildenafil on their medication list Regina Wise RN Flex documented in this encounter Plan of Treatment Upcoming Encounters Date Type Specialty Care Team Description 05/20/2022 Lab Lab documented as of this encounter Visit Diagnoses Diagnosis Benign prostatic hyperplasia with weak u rinary stream documented in this encounter Care Teams Health Plan Manager Relationship Specialty Start Date End Date Froylan Louise MD PCP - General Family Practice 02/22/14 Froylan Louise MD Assigned PCP 03/13/14 2 documented as of this encounter
--- OUTSIDE RECORDS SUMMARY | 2022-05-15 22:23 | XMS_ITS | Encounter Summary ---
:1955 Author Organization [place] Address [facility] [place] [address] Care Team Providers Name Role Phone Froylan Louise MD Primary Care Provider Unavailable Froylan Louise MD Unavailable Unavailable Encounter Details Date Type Department Care Team Description 10/06/2020 Anticoagulation Therapy [facility] Audrey Louise Chronic deep vein thrombosis (DVT) of lower extremity, unspecified laterality, unspecified vein (H); Visit Clinic Chhaya Dubose MD residential current use of ant icoagulant therapy [address] [place] [address] Social History Tobacco Use Types [...] you attend caodaism or Patient refused 2020 baptist services? Do [...] encounter Progress Notes Diana Nielsen RN - 10/06/2020 5:14 PM CDT Anticoagulation Management Unable to reach Virgil today. Today's INR result of 2.5 is therapeutic (goal INR of 2.0-3.0). Result received from: Clinic Lab Follow up required to discuss dosing instructions and confirm understanding of instructions Left message to take 7.5 mg tonight, then begin hold tomorrow and bridging on Friday. Patient has detailed instructions already on MyChart which he has not yet read. Anticoagulation clinic to follow up Diana Nielsen RN ANTICOAGULATION FOLLOW-UP CLINIC VISIT Patient Name: Virgil Christine Date: 10/06/2020 Contact Type: Telephone SUBJECTIVE: Patient Findings Positives: Upcoming invasive procedure (pouchoscopy 10/12/20, pt has hold/bridge instructions on MyCmessage) Comments: Patient returned call. Stated understanding of instructions documented in his My Chart message to begin warfarin hold tomorrow, start bridging on Friday and understands to increase warfarin dosing after starting back up. Next INR 10/16/20 when in office to see Dr. Louise. No other questions or concerns at this time. Diana Mukherjee RN Anticoagulation Team Clinical Outcomes Negatives: Major bleeding event, Thromboembolic event, Anticoagulation-related hospital admission, Anticoagulation-related ED visit, Anticoagulation-related fatality Comments: Patient returned call. Stated understanding of instructions documented in his My Chart message to begin warfarin hold tomorrow, start bridging on Friday and understands to increase warfarin dosing after starting back up. Next INR 10/16/20 when in office to see Dr. Louise. No other questions or concerns at this time. Diana Mukherjee RN Anticoagulation Team OBJECTIVE Recent labs: (last 7 days) 10/06/20 1524 INR 2.50* ASSESSMENT / PLAN No question data found. Anticoagulation Summary As of 10/06/2020 INR goal: 2.0-3.0 TTR: 81.0 % (1 y) INR used for dosin.50 (10/06/2020) Warfarin maintenance plan: 5 mg (5 mg x 1) every Wed; 7.5 mg (7.5 mg x 1) all other days Full warfarin instructions: 10/07: Hold; 10/08: Hold; 10/09: Hold; 10/10: Hold; 10/11: Hold; 10/12: 15 mg;10/13: 10 mg; Otherwise 5 mg every Wed; 7.5 mg all other days Weekly warfarin total: 50 mg Plan last modified: Hilda Burch RN (05/14/2019) Next INR check: 10/16/2020 Priority: High Target end date: Indefinite Indications Chronic deep vein thrombosis (DVT) of lower extremity unspecified laterality unspecified vein (H) [I82.509] Long-term (current) use of anticoagulants [Z79.01] [Z79.01] Anticoagulation Episode Summary INR check location: Preferred lab: Send INR reminders to: [facility] Comments: Anticoagulation Care Providers Provider Role Specialty Phone number Froylan Louise MD Referring Family Medicine [phone] See the Encounter Report to view Anticoagulation [...] wer extremity, unspecified laterality, unspecified vein (H) residential current use of anticoagulant t herapy documented in this encounter Care Teams Bridge Tender Relationship Specialty Start Date End Date Froylan Louise MD PCP - General Family Practice 02/22/14 Froylan Louise MD Assigned PCP 03/13/14 2 documented as of this encounter
--- OUTSIDE RECORDS SUMMARY | 2022-05-15 22:23 | XMS_ITS | Encounter Summary ---
:1955 Author Organization [place] Address [address] [place] [address] Care Team Providers Name Role Phone Froylan Louise MD Primary Care Provider Unavailable Froylan Louise MD Unavailable Unavailable Esthela Corea RN Unavailable Unavailable Encounter Details Date Type Department Care Team Description 10/16/2020 Travel Social History Tobacco Use Types Packs/Day [...] you attend synagogue or Patient refused 2020 orthodoxy services? Do [...] on filedocumented in this encounter Care Teams Truck Chauffeur Relationship Specialty Start Date End Date Froylan Louise MD PCP - General Family Practice 02/22/14 Froylan Louise MD Assigned PCP 03/13/14 2 Esthela Corea, RN Personal Advocate & Liaison Family Medicine 10/16 (PAL) documented as of this encounter
--- OUTSIDE RECORDS SUMMARY | 2022-05-15 22:23 | XMS_ITS | Encounter Summary ---
:1955 Author Organization [place] Address [address] [facility] [place] [address] Care Team Providers Name Role Phone Froylan Louise MD Primary Care Provider Unavailable Froylan Louise MD Unavailable Unavailable Encounter Details Date Type Department Care Team Description 09/28/2020 Orders Only [facility] Chase Suazo Encoun ter for [facility] screening for other [address] [place] [address] ASSOC [phone] [address] [place] [address] Social History Tobacco Use Types Packs/Day Years Used Date Smoking Tobacco: Former Cigarettes 2 25 Quit : 08/04/2006 Smokeless Tobacco: Never Comments: 2004 Alcohol Use Standard Drinks/Week Comments Yes 0 (1 standard drink = 0.6 oz pure alcoho l) 4 BEERS A WEEK Alcohol Habits Answer Date Recorded How often do you have a drink containing 4 or more times a w [place] 05/25/2021 alcohol? How many drinks containing [...] you attend worship or Patient refused 2020 pentecostalism services? Do [...] Lab Lab documented as of this encounter Results Asymptomatic COVID-19 Virus (Coronavirus) by PCR (10/08/2020 11:59 AM CDT) Component Value Ref Test Analysis Performed At [facility] Range Method Time Signature COVID-19 Nasopharyngeal 10/08/2020 [place] Virus PCR to 11:59 AM [facility] Source COVID-19 Test received-See 10/08/2020 INFECTIOUS Virus PCR to reflex to IDDL 3:48 PM CDT DISEASES [facility] - test SARS CoV2 DIAGNOSTIC Result (COVID-19) Virus LABORATORY, RT-PCR [facility] Specimen (Source) Anatomical Collection Method Collection Time Re ceived Time Location / / Volume Laterality Specimen from 10/08/2020 11:59 10/08/2020 nasopharyngeal AM CDT 12:00 PM CDT structure (specimen) Chase Suazo MD LAB - MICRO GENERAL ORDERABL ES Performing Organization Address City/State/ZIP Code Phon e Number INFECTIOUS DISEASES [address] [place] [address] DIAGNOSTIC LABORATORY, [facility] [address] [phone] documented in this encounter Visit Diagnoses Diagnosis Encounter for screening for other viral diseases documented in this encounter Care Teams Nail Puller Relationship Specialty Start Date End Date Froylan Louise MD PCP - General Family Practice 02/22/14 Froylan Louise MD Assigned PCP 03/13/14 2 documented as of this encounter
--- OUTSIDE RECORDS SUMMARY | 2022-05-15 22:23 | XMS_ITS | Encounter Summary ---
:1955 Author Organization [place] Address [address] [place] [address] Care Team Providers Name Role Phone Froylan Louise MD Primary Care Provider Unavailable Froylan Louise MD Unavailable Unavailable Reason for Visit Reason Comments Medication Refill Encounter Details Date Type Department Care Team Description 10/02/2020 Refill [facility] Froylan Louise Ra, MD Medication Refill [address] [address] Social History Tobacco Use [...] containing 4 or more times a w [place] 05/25/2021 alcohol? How many drinks containing [...] you attend mandaen or Patient refused 2020 sikhism services? Do [...] this encounter Miscellaneous Notes Telephone Encounter - Wendi Lindsay RN - 10/03/2020 3:47 PM CDT Routing refill request to provider for review/approval because: Drug not on the [facility] refill protocol Wendi Lindsay RN, BSN documented in this encounter Plan of Treatment Upcoming Encounters Date Type Specialty Care Team Description 05/20/2022 Lab Lab documented as of this encounter Visit Diagnoses Diagnosis Insomnia, unspecified type Essential hypertension Unspecified essential hypertension documented in this encounter Care Teams Processing Manager Relationship Specialty Start Date End Date Froylan Louise MD PCP - General Family Practice 02/22/14 Froylan Louise MD Assigned PCP 03/13/14 2 documented as of this encounter
--- OUTSIDE RECORDS SUMMARY | 2022-05-15 22:23 | XMS_ITS | Encounter Summary ---
:1955 Author Organization [place] Address [facility] [place] [address] Care Team Providers Name Role Phone Froylan Louise MD Primary Care Provider Unavailable Froylan Louise MD Unavailable Unavailable Encounter Details Date Type Department Care Team Description 10/08/2020 Hospital Encounter [facility] Chase Suazo for [facility] Laboratory CMD screening for other [address] COLON RECTAL viral diseases [place], [place] SURG [facility] [phone] [address] [facility] [phone] [address] Social History Tobacco Use Types Packs/Day Years Used Date Smoking Tobacco: Former Cigarettes 2 25 Quit : 08/04/2006 Smokeless Tobacco: Never Comments: 2004 Alcohol Use Standard Drinks/Week Comments Yes 0 (1 standard drink = 0.6 oz pure alcoho l) 4 BEERS A WEEK Alcohol Habits Answer Date Recorded How often do you have a drink containing 4 or more times a w [place] 05/25/2021 alcohol? How many drinks containing alcohol [...] you attend taoism or Patient refused 2020 islam services? Do [...] vein of both lower extremities (H), senior care current use of anticoagulants with INR goal [...] as laterality, unspecified advised by vein (H), senior care provider. Then current use of continue daily anticoagulant therapy injections until INR 2.3 or higher (or >2.0 twice, 24 hours apart). Nvrarythqyn-Uxcpxcgwf-Ogjk Inhale 1 puff into 1 Inhaler 11 [...] Name Priority Date/Time Associated Diagnosis Comme nts SARS-COV-2 Routine 10/08/2020 11:59 AM Encounter for Results for this (COVID-19) VIRUS CDT screening for other proc edure are in RT-PCR viral diseases the results section. COVID-19 VIRUS Routine 10/08/2020 11:59 AM Encounter for Resul ts for this (CORONAVIRUS) BY CDT screening for other proc edure are in PCR viral diseases the results section. documented in this encounter Results SARS-CoV-2 COVID-19 Virus (Coronavirus) by PCR (10/08/2020 11:59 AM CDT) [facility] Method Time Signature SARS-CoV-2 Nasopharyngeal 10/09/2020 INFECTIOUS Virus 11:36 AM DISEASES Specimen CDT DIAGNOSTIC Source LABORATORY, [facility] SARS-CoV-2 NEGATIVE 10/09/2020 INFECTIOUS PCR Result 11:36 AM DISEASES CDT DIAGNOSTIC LABORATORY, [facility] Comment: SARS-CoV2 (COVID-19) RNA not de tected, presumed negative. SARS-CoV-2 PCR Testing was performed using the Aptima SARS-CoV-2 Assay on the [employer] Instrument System. 10/09/2020 11:36 AM INFECTI OUS DISEASES Comment Additional information about this Emergency Use Authorization (EUA) assay can be found via CDT DIAGNOSTIC the Lab Guide. LABORATORY, [facility] Comment: This test should be ordered for the dete ction of SARS-CoV-2 in individuals who meet SARS-CoV-2 clinical and/or epidemi ological criteria. Test performance is unknown in asymptomatic patients. This test is for in vitro diagnostic use under the FDA EUA for laboratories certified under CLIA to perform high com plexity testing. This test has not been FDA cleared or approved. A negative result does not rule out the presence of PCR inhibitors in the specimen or target RNA in concentration below the limit of detection for the assay. The possibility of a false negati ve should be considered if the patient's recent exposure or clinical pr esentation suggests COVID-19. This test was validated by the [facility] Infectious Diseases Diagnostic Laboratory. This laboratory i s certified under the Clinical Laboratory Improvement Amendments of 198 8 (CLIA-88) as qualified to perform high complexity laboratory testing. Specimen (Source) Anatomical Collection Method Collection Time Re ceived Time Location / / Volume Laterality Specimen from 10/08/2020 11:59 10/08/2020 nasopharyngeal AM CDT 12:00 PM CDT structure (specimen) Chase Suazo MD LAB - MICRO GENERAL ORDERABL ES Performing Organization Address City/[facility]/ZIP Code Phon e Number INFECTIOUS DISEASES DIAGNOSTIC [address] [facility] [address] [address] LABORATORY, [facility] Asymptomatic COVID-19 Virus (Coronavirus) by PCR (10/08/2020 11:59 AM CDT) Component Value Ref Test Analysis Performed At [facility] Range Method Time Signature COVID-19 Nasopharyngeal 10/08/2020 [place] Virus PCR to 11:59 AM [facility] Source COVID-19 Test received-See 10/08/2020 INFECTIOUS Virus PCR to reflex to IDDL 3:48 PM CDT DISEASES [facility] - test SARS CoV2 DIAGNOSTIC Result (COVID-19) Virus LABORATORY, RT-PCR [facility] Specimen (Source) Anatomical Collection Method Collection Time Re ceived Time Location / / Volume Laterality Specimen from 10/08/2020 11:59 10/08/2020 nasopharyngeal AM CDT 12:00 PM CDT structure (specimen) Chase Suazo MD LAB - MICRO GENERAL ORDERABL ES Performing Organization Address City/[facility] Code Phon e Number INFECTIOUS DISEASES [address] [place] [address] DIAGNOSTIC LABORATORY, [facility] [address] [phone] documented in this encounter Visit Diagnoses Diagnosis Encounter for screening for other viral diseases documented in this encounter Care Teams Oilseed Meat Presser Relationship Specialty Start Date End Date Froylan Louise MD PCP - General Family Practice 02/22/14 Froylan Louise MD Assigned PCP 03/13/14 2 documented as of this encounter
--- OUTSIDE RECORDS SUMMARY | 2022-05-15 22:23 | XMS_ITS | Encounter Summary ---
:1955 Author Organization [place] Address [facility] [place] [address] Care Team Providers Name Role Phone Froylan Louise MD Primary Care Provider Unavailable Froylan Louise MD Unavailable Unavailable Reason for Visit Auth/Cert Specialty Diagnoses / Procedures Referred By Contact Refer red To Contact Gastroenterology Diagnoses Ulcerative colitis (H) Ulcerative colitis (H) [K51.90] Sh Endoscopy Procedures HC ENDO EVAL SM INT POUCH DIAGNOSTIC HC ENDO EVAL SM INT POUCH W BIOPSY POUCHOSCOPY [address] [place] [address] Phone: Referral ID Status Reason Start Date Expiration Date Visits Requ ested Visits Authorized [id number] 1 1 Encounter Details Date Type Department Care Team Description 10/12/2020 Hospital Encounter [facility] Julian Suazo MD [facility] Endoscopy COLON RECTAL SURG [address] [facility] [place] [phone] [address] [phone] [address] [place] [address] (Wo rk) Social History Tobacco Use Types [...] containing 4 or more times a w [place] 05/25/2021 alcohol? How many drinks containing alcohol [...] you attend tenriism or Patient refused 2020 zoroastrianism services? 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 Then current use of continue daily anticoagulant therapy injections until INR 2.3 or higher (or >2.0 twice, 24 hours apart). Nsogjvcvvic-Iimcyhuco-Utcp Inhale 1 puff into 1 Inhaler 11 [...] - PROVATION Routine 10/12/2020 10:16 AM Re kvng for this GI EXAM CDT procedure are i n the results section. documented in this encounter Results PROVGI - PROVATION GI EXAM (10/12/2020 10:16 AM CDT) [facility] Method Time Signature [facility] RADIOLOGY [facility] Endoscopy Department RESULTS Patient Name: Virgil Christine ?Procedure Date: 10/12/2020 10:16 AM ? Accou nt Number: [id number] Date of : 1955 ?Admit Type: Out [...] Procedure Code(s): ? --- Professional --- ? 85286, Endoscopic evaluation of s mall intestinal pouch [...] other than malignant neoplasm CPT copyright 2019 [employer]. All rights reserved. The codes documented in this report are prelimin dillon and upon oil laboratory analyst review may be revised to meet current compliance requirements. Chase Suazo MD 10/12/2020 11:02:02 AM I was physically present for the entire viewing portion of t he exam. Chase Suazo MD Number of Addenda: 0 Note Initiated On: 10/12/2020 10:16 AM MRN: ?[id number] Procedure Date: ? 10/12/2020 10:16:47 AM Total [...] RESULTS documented in this encounter Visit Diagnoses Not [...] 1039 documented in this encounter Care Teams Livestock Farm Workers Relationship Specialty Start Date End Date Froylan Louise MD PCP - General Family Practice 02/22/14 Froylan Louise MD Assigned PCP 03/13/14 2 documented as of this encounter
--- OUTSIDE RECORDS SUMMARY | 2022-05-15 22:23 | XMS_ITS | Encounter Summary ---
:1955 Author Organization [place] Address [facility] [place] [address] Care Team Providers Name Role Phone Froylan Louise MD Primary Care Provider Unavailable Froylna Louise MD Unavailable Unavailable Esthela Corea RN Unavailable Unavailable Reason for Visit Reason Comments RECHECK bp Encounter Details Date Type Department Care Team Description 10/16/2020 Office Visit [facility] Froylan Louise Essential hypertension (Primary Dx); Clinic Chhaya Dubose MD PVC's (premature ventricular contractions); [address] [facility] Varicose veins of right lowe r extremity with both ulcer of ankle and inflammation (CODE) (H); [place], [place] Other ulcerati ve colitis without complication (H); [phone] Palpitations [phone] Social History Tobacco Use Types Packs/Day Years Used Date Smoking Tobacco: Former Cigarettes 2 25 Quit : 08/04/2006 Smokeless Tobacco: Never Comments: 2004 Alcohol Use Standard Drinks/Week Comments Yes 0 (1 standard drink = 0.6 oz pure alcoho l) 4 BEERS A WEEK Alcohol Habits Answer Date Recorded How often do you have a drink containing 4 or more times a w [place] 05/25/2021 alcohol? How many drinks containing [...] you attend episcopal or Patient refused 2020 muslim services? Do [...] Sign Reading Time Taken Comments Blood Pressure 147/90 10/16/2020 10:53 AM CDT Pulse 91 10/16/2020 10:53 AM CDT Temperature 36.7 ??C (98 ??F) 10/16/2020 10:53 AM CDT Respiratory Rate 17 10/16/2020 10:53 AM CDT Oxygen Saturation 96% 10/16/2020 10:53 AM CDT Inhaled Oxygen Concentration - - Weight 113.9 kg (251 lb) 10/16/2020 10:53 AM CDT Height 182.9 cm (6') 10/16/2020 10:53 AM CDT Body Mass Index 34.04 10/16/2020 10:53 AM CDT documented in this encounter Progress Notes Esthela Corea RN - 10/16/2020 11:20 AM CDT Pre-Visit Planning Next 5 appointments (look out 90 days) Oct 16, 2020 11:20 AM (Arrive by 11:00 AM) Office Visit with Froylan Louise MD [facility] ([facility] ) [id number] [place] [phone] Appointment Notes for this encounter: reviewed JQ // f/u to palpitation Questionnaires Reviewed/Assigned PHQ2 and ACT Patient contact not needed. See nursing note from 10/06/20 Esthela Corea RN Froylan Louise MD - 10/16/2020 11:20 AM CDT Assessment & Plan Essential hypertension Not controlled today. Discussed adding a second medicine with lisinopril. Patient would like to continue to work on diet and activity and monitor with hydrochlorothiazide. - hydrochlorothiazide (HYDRODIURIL) 25 MG tablet; Take 1 tablet (25 mg) by mouth daily PVC's (premature ventricular contractions) Noted on EKG. Same noted on exam today. No other findings at this time. Can consider further work-upif he has change in symptoms. 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 Palpitations Return in about 2 weeks (around 10/30/2020) for nurse blood pressure check. Froylan Louise MD [facility] Herman is a 64 year old who presents for the following health issues History of Present Illness Hypertension: He presents for follow up of hypertension. He does not check blood pressure regularly outside of the clinic. Outside blood pressures have been over 140/90. He follows a low salt diet. He eats 0-1 servings of fruits and vegetables daily.He consumes 1 sweetened beverage(s) daily.He exercises with enough effort to increase his heart rate 60 or more minutes per day. He exercises with enough effort to increase his heart rate 5 days per week. He is taking medications regularly. Patient follow-up for heart palpitations. Denies chest pain. Denies lightheadedness or dizziness when he has the sensation. He has just occasional feelings of heart skipping that lasts seconds at a time. Shortness of breath just with going up a few flights of stairs and otherwise no breathing issues and asthma well controlled. Blood pressure has not been controlled with hydrochlorothiazide. He is working on seeing more activeand reducing alcohol. Review of Systems Objective BP (!) 147/90 (BP Location: Right arm, Patient Position: Chair, Cuff Size: Adult Large) Pulse 91 Temp 98 ??F (36.7 ??C) (Oral) Resp 17 Ht 1.829 m (6') Wt 113.9 kg (251 lb) SpO2 96% BMI 34.04 kg/m?? Body mass index is 34.04 kg/m??. 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
--- OUTSIDE RECORDS SUMMARY | 2022-05-15 22:23 | XMS_ITS | Encounter Summary ---
:1955 Author Organization [place] Address [address] [place] [address] Care Team Providers Name Role Phone Froylan Louise MD Primary Care Provider Unavailable Froylan Louise MD Unavailable Unavailable Encounter Details Date Type Department Care Team Description 10/04/2020 Telephone [facility] Froylan Louise Ra, MD [place] [address] [place] [address] Social History Tobacco Use [...] containing 4 or more times a w [place] 05/25/2021 alcohol? How many drinks containing alcohol [...] you attend jew or Patient refused 2020 advent services? Do [...] Telephone Encounter - Diana Nielsen RN - 10/04/2020 4:32 PM CDT Lovenox prescription sent to preferred pharmacy. MyC message sent to patient with day-by-day instructions for holding/restarting warfarin and bridging with Lovenox. Will review with patient over the phone at time of next INR, 10/06/20. Diana Mukherjee RN Anticoagulation Team Telephone Encounter - Froylan Louise MD - 10/04/2020 2:56 PM CDT I would bridge with prior extensive clot and anticardiolipin antibody present. Will route to anticoagulation team as well. Telephone Encounter - Esthela Corea RN - 10/04/2020 2:02 PM CDT Colorectal called back - Needs 5 day coumadin hold and based on results of scope will resume either same day or 2 days later if they remove polyps. Scope is scheduled for 10/12 last coumadin will be 10/07 Does pt need bridge? Esthela Corea RN Telephone Encounter - Esthela Corea RN - 10/04/2020 9:47 AM CDT Pt having procedure on 10/12 will need warfarin hold. Will pt need bridge? LM for colorectal to call back Esthela Corea RN documented in this encounter Plan of Treatment Upcoming Encounters Date Type Specialty Care Team Description 05/20/2022 Lab Lab documented as of this encounter Visit Diagnoses Not on filedocumented in this encounter Care Teams Road Freight Conductor Relationship Specialty Start Date End Date Froylan Louise MD PCP - General Family Practice 02/22/14 Froylan Louise MD Assigned PCP 03/13/14 2 documented as of this encounter
--- OUTSIDE RECORDS SUMMARY | 2022-05-15 22:23 | XMS_ITS | Encounter Summary ---
:1955 Author Organization [place] Address [address] [place] [address] Care Team Providers Name Role Phone Froylan Louise MD Primary Care Provider Unavailable Froylan Louise MD Unavailable Unavailable Encounter Details Date Type Department Care Team Description 09/03/2020 Travel Social History Tobacco Use Types Packs/Day [...] you attend amish or Patient refused 2020 druze services? Do [...] on filedocumented in this encounter Care Teams Analysis Mgr Relationship Specialty Start Date End Date Froylan Louise MD PCP - General Family Practice 02/22/14 Froylan Louise MD Assigned PCP 03/13/14 2 documented as of this encounter
--- OUTSIDE RECORDS SUMMARY | 2022-05-15 22:23 | XMS_ITS | Encounter Summary ---
:1955 Author Organization [place] Address [address] [place] [address] Care Team Providers Name Role Phone Froylan Louise MD Primary Care Provider Unavailable Froylan Louise MD Unavailable Unavailable Reason for Visit Reason Onset Date Comments Anticoagulation 09/18/2020 hold/bridge assessme nt Encounter Details Date Type Department Care Team Description 09/18/2020 Telephone [facility] Chhaya Dubose MD (hold/bridge assessment) [id number] [place] [address] Social History Tobacco Use Types [...] containing 4 or more times a w [place] 05/25/2021 alcohol? How many drinks containing alcohol [...] or relatives? How often do you attend congregational or Patient refused 2020 yazdanism services? Do you belong to any clubs or Yes 05/25/2021 organizations such as congregational groups, unions, fraternal or athletic groups, or [...] Encounter - Diana Nielsen RN - 10/04/2020 4:08 PM CDT Lovenox prescription sent to requested pharmacy. Written warfarin hold/restart and lovenox bridge instructions sent to patient via Veot[employer]. Can discuss any other concerns or questions when RN calls patient with next INR results 10/06/20. Diana Mukherjee RN Anticoagulation Team Telephone Encounter - Anival Lundberg RN - 10/04/2020 3:46 PM CDT Patient calling stating he is supposed to start bridge with lovenox 10/09/20. Patient has not received prescription for lovenox yet. Is this something anticoag helps with or should I route to PCP? Please advise. Per notes: ?? Pre-Procedure: ? Hold warfarin until after procedure startin10/07/2020 ? BMI 34kg/m2 ? Lovenox 40 mg subq Q 24 hrs ( for CrCl 106 ml/min) ?? Start Lovenox: 10/09/2020 ?? Last dose of Lovenox prior to procedure: 10/11/2020 Anival Phillip RN Telephone Encounter - Froylan Louise MD - 09/26/2020 12:04 PM CDT Agree with plan. Telephone Encounter - Antonieta Randhawa [facility] - 09/22/2020 1:21 PM CDT IAN-PROCEDURAL ANTICOAGULATION MANAGEMENT Assessment Warfarin interruption plan for pouchoscopy on 10/12/2020. DVT 2007, 2008, Lupus anticoagulant positive ?? Risk stratification for thromboembolism: high (2012 Chest guidelines) ?? LAC + 01/05/2018 & 06/05/2018 VTE: 2018 [place] [employer] Hemat[employer] recommends against bridging in low and moderate risk VTE patients holding warfarin Plan ?? Pre-Procedure: ?? Hold warfarin until after procedure startin10/07/2020 ?? BMI 34kg/m2 ?? Lovenox 40 mg subq Q 24 hrs ( for CrCl 106 ml/min) ?? Start Lovenox: 10/09/2020 ?? Last dose of Lovenox prior to procedure: 10/11/2020 ?? Post-Procedure: ?? Resume home warfarin dose if okay with provider doing procedure on night of procedure, 10/12/2020M: 15mg & 10mg 10/13/2020 ?? Resume Lovenox ~ 24-48 hrs post procedure when okay with provider doing procedure. Continue untilINR >= 2.3 ?? Recheck INR 5-7 days after resuming warfarin ? Antonieta Randhawa RPH Subjective/Objective: Virgil Christine, a 64 year old male Reason for Anticoagulation: DVT and Lupus Anticoagulant Goal INR Range: 2.0-3.0 Patient bridged in past: Yes: but has refused in past Pertinent History: N/A Wt Readings from Last 3 Encounters: 05/26/20 108 kg (238 lb) 05/31/19 108 kg (238 lb) 08/10/18 104.8 kg (231 lb) [place] body weight: 74.1 kg (163 lb 7.5 oz) Adjusted ideal body weight: 87.7 kg (193 lb 4.5 oz) Lab Results Component Value Date INR 2.90 (H) 09/18/2020 INR 3.20 (H) 09/03/2020 INR 2.80 (H) 08/01/2020 Lab Results Component Value Date HGB 15.1 05/26/2020 HCT 46.1 05/26/2020 PLT 169 05/26/2020 Lab Results Component Value Date CR 0.89 09/03/2020 CR 0.890 08/04/2020 CR 0.90 05/26/2020 CrCl cannot be calculated (Patient's most recent lab result is older than the maximum 10 days allowed.). Telephone Encounter - Diana Nielsen RN - 09/18/2020 5:51 PM CDT Patient is scheduled for a pouchoscopy 10/12/20. [facility]ist for hold/bridge assessment. Patient has bridged with Lovenox in the past. Diana Mukherjee RN Anticoagulation Team documented in this encounter Plan of Treatment Upcoming Encounters Date Type Specialty Care Team Description 05/20/2022 Lab Lab documented as of this encounter Visit Diagnoses Diagnosis shelter current use of anticoagulant t herapy - Primary Chronic deep vein thrombosis (DVT) of lo wer extremity, unspecified laterality, unspecified vein (H) documented in this encounter Care Teams Blocker And Sewer Relationship Specialty Start Date End Date Froylan Louise MD PCP - General Family Practice 02/22/14 Froylan Louise MD Assigned PCP 03/13/14 2 documented as of this encounter
--- OUTSIDE RECORDS SUMMARY | 2022-05-15 22:23 | XMS_ITS | Encounter Summary ---
:1955 Author Organization [place] Address [address] [place] [address] Care Team Providers Name Role Phone Froylan Louise MD Primary Care Provider Unavailable Froylan Louise MD Unavailable Unavailable Esthela Corea RN Unavailable Unavailable Encounter Details Date Type Department Care Team Description 10/16/2020 Orders Only [facility] onic deep vein thrombosis (DVT) of lower extremity, unspecified laterality, unspecified vein (H); [facility] current use of ant icoagulants with INR goal of 2.0-3.0 [address] [place] [address] Social History Tobacco Use [...] containing 4 or more times a w [place] 05/25/2021 alcohol? How many drinks containing alcohol [...] you attend temple or Patient refused 2020 christian services? Do [...] Date/Time Associated Diagnosis Comme nts INR Routine 10/16/2020 10:37 AM Chronic deep vein Res ults for this CDT thrombosis (DVT) of procedur e are in lower extremity, the results unspecified laterality, sect ion. unspecified vein (H) jail current use of anticoagulants with INR goal of 2.0-3.0 documented in this encounter Results (ABNORMAL) INR (10/16/2020 10:37 AM CDT) athologist Signature INR 1.70 (H) 0.86 - 1.14 10/16/2020 [place] 11:04 AM CDT [facility] Comment: This test is intended for monitoring Cou madin therapy. ??Results are not accurate in patients with prolonged INR due to factor deficiency. Specimen Anatomical Collection Method Collection Time Receive d Time (Source) Location / / Volume Laterality Blood specimen 10/16/2020 10:37 (specimen) AM CDT 10:42 AM CDT Froylan Louise MD LAB - BLOOD ORDERABLES Performing Organization Address City/State/ZIP Code Phon e Number [facility] [address] [place] [address] documented in this encounter Visit Diagnoses Diagnosis Chronic deep vein thrombosis (DVT) of lo wer extremity, unspecified laterality, unspecified vein (H) terminal [place] current use of anticoagulants with INR goal of 2.0-3.0 documented in this encounter Care Teams Bench Lathe Operator Relationship Specialty Start Date End Date Froylan Louise MD PCP - General Family Practice 02/22/14 Froylan Louise MD Assigned PCP 03/13/14 2 Esthela Corea RN Personal Advocate & Liaison Family Medicine 10/16 (PAL) documented as of this encounter
--- OUTSIDE RECORDS SUMMARY | 2022-05-15 22:23 | XMS_ITS | Encounter Summary ---
:1955 Author Organization [facility] Address [address] [place] [address] Care Team Providers Name Role Phone Froylan Louise MD Primary Care Provider Unavailable Froylan Louise MD Unavailable Unavailable Encounter Details Date Type Department Care Team Description 09/18/2020 Travel Social History Tobacco Use Types Packs/Day Years Used Date Smoking Tobacco: Former Cigarettes 2 25 Quit : 08/04/2006 Smokeless Tobacco: Never Comments: 2004 Alcohol Use Standard Drinks/Week Comments Yes 0 (1 standard drink = 0.6 oz pure alcoho l) 4 BEERS A WEEK Alcohol Habits Answer Date Recorded How often do you have a drink containing 4 or more times a w [place] 05/25/2021 alcohol? How many drinks containing alcohol [...] you attend zoroastrian or Patient refused 2020 restorationist services? Do [...] on filedocumented in this encounter Care Teams Barrel Rifler Hook Relationship Specialty Start Date End Date Froylan Louise MD PCP - General Family Practice 02/22/14 Froylan Louise MD Assigned PCP 03/13/14 2 documented as of this encounter
--- OUTSIDE RECORDS SUMMARY | 2022-05-15 22:23 | XMS_ITS | Encounter Summary ---
:1955 Author Organization [facility] Address [address] [place] [address] Care Team Providers Name Role Phone Froylan Louise MD Primary Care Provider Unavailable Froylan Louise MD Unavailable Unavailable Reason for Visit Reason Comments Allied Health Visit bp check Encounter Details Date Type Department Care Team Description 10/06/2020 Allied Health/Nurse Health [facility] All ied Health Visit (bp Visit Clinic [place] check) [address] [place] [address] Social History Tobacco Use Types [...] containing 4 or more times a w [place] 05/25/2021 alcohol? How many drinks containing alcohol [...] you attend bahai or Patient refused 2020 mormon services? Do [...] Sign Reading Time Taken Comments Blood Pressure 152/96 10/06/2020 3:52 PM CDT Pulse 106 10/06/2020 3:52 PM CDT irregular Temperature - - Respiratory Rate 16 10/06/2020 3:52 PM CDT Oxygen Saturation - - Inhaled Oxygen Concentration - - Weight - - Height - - Body Mass Index - - documented in this encounter Nursing Notes Esthela Corea RN - 10/06/2020 4:10 PM CDT Pt was in for INR and c/o not feeling well Face is very flushed and feels uncomfortable in chest. Pt with elevated BP, irregular HR to ausculation and palpation at wrist. Pt denies recent illness, no SOB or chest pain. He denies fever. Has NOT had COVID vaccine. Pt is taking all medications as prescribed, Has not started Lovenox as of yet. EKG ordered. Reviewed by PCP non concerning at this time. Per PCP pt to f/u with in the near future with him. Check CBC and BMP today. Avoid caffeine and other stimulating beverages. Cut back alcohol. Eat regularly and increase water as pt states he does not drink water. If worsening chest discomfort be seen in ER over the weekend. Ptexpressed understanding and acceptance of the plan. had no further questions at this time. Advisedcan call back to clinic at any time with concerns. Scheduled with PCP 10/16 Esthela Corea RN Message handled by Nurse Triage with [facility] - provider name: Froylan Louise MD. documented in this encounter Plan of Treatment Upcoming Encounters Date Type Specialty Care Team Description 05/20/2022 Lab Lab documented as of this encounter Procedures Procedure Name Priority Date/Time Associated Diagnosis Comme nts BASIC METABOLIC Routine 10/06/2020 4:24 PM Irregular hea rtbeat Results for this PANEL CDT PVC's (premature procedure a re in ventricular the results contractions) section. CBC WITH PLATELETS Routine 10/06/2020 4:24 PM Irregular heartbeat Results for this CDT PVC's (premature procedure a re in ventricular the results contractions) section. EKG 12-LEAD Routine 10/06/2020 Irregular heartbeat Results for this COMPLETE W/READ - procedure are in CLINICS the results section. documented in this encounter Results CBC with platelets (10/06/2020 4:24 PM CDT) athologist Signature WBC 5.5 4.0 - 11.0 10/06/2020 [place] 10e9/L 4:33 PM CDT [facility] RBC Count 4.50 4.4 - 5.9 10/06/2020 [place] 10e12/L 4:33 PM CDT [facility] Hemoglobin 13.9 13.3 - 10/06/2020 [place] 17.7 g/dL 4:33 PM CDT [facility] Hematocrit 42.1 40.0 - 10/06/2020 [place] 53.0 % 4:33 PM CDT [facility] MCV 94 78 - 100 10/06/2020 [place] fl 4:33 PM CDT [facility] MCH 30.9 26.5 - 10/06/2020 [place] 33.0 pg 4:33 PM CDT [facility] MCHC 33.0 31.5 - 10/06/2020 [place] 36.5 g/dL 4:33 PM CDT [facility] RDW 13.6 10.0 - 10/06/2020 [place] 15.0 % 4:33 PM CDT [facility] Platelet Count 181 150 - 450 10/06/2020 [place] 10e9/L 4:33 PM CDT [facility] Specimen Anatomical Collection Method Collection Time Receive d Time (Source) Location / / Volume Laterality Blood 10/06/2020 4:24 PM 4:25 CDT PM CDT Froylan Louise MD LAB - BLOOD ORDERABLES Performing Organization Address City/State/ZIP Code Phon e Number [facility] [id number] [place] [address] (ABNORMAL) Basic metabolic panel (Ca, Cl, CO2, Creat, Gluc, K, Na, BUN) (10/06/2020 4:24 PM CDT) athologist Signature Sodium 139 133 - 144 10/07/2020 [facility] mmol/L 12:04 PM [facility] Potassium 3.4 3.4 - 5.3 10/07/2020 [place] mmol/L 12:04 PM [facility] Chloride 106 94 - 109 10/07/2020 [place] mmol/L 12:04 PM [facility] Carbon Dioxide 29 20 - 32 10/07/2020 [place] mmol/L 12:10 PM [facility] Anion Gap 4 3 - 14 10/07/2020 [place] mmol/L 12:10 PM [facility] Glucose 101 (H) 70 - 99 10/07/2020 [place] mg/dL 12:10 PM [facility] Urea Nitrogen 21 7 - 30 10/07/2020 [place] mg/dL 12:10 PM [facility] Creatinine 0.97 0.66 - 10/07/2020 [place] 1.25 mg/dL 12:10 PM [facility] GFR Estimate 83 >60 10/07/2020 [place] mL/min/{1. 12:10 PM [facility] 73_m2} [facility]OSPITAL Comment: Non GFR Calc Starting 06/09/2018, serum creatinine ba sed estimated GFR (eGFR) will be calculated using the Chronic Kidney Dise [facility] Epidemiology Collaboration (CKD-EPI) equation. GFR Estimate If >90 >60 mL/min/{1.73_m2} 10/07/2020 12 :10 PM [facility] Comment: GFR Calc Starting 06/09/2018, serum creatinine ba sed estimated GFR (eGFR) will be calculated using the Chronic Kidney Dise [facility] Epidemiology Collaboration (CKD-EPI) equation. Calcium 8.9 8.5 - 10.1 mg/dL 10/07/2020 12:10 PM [facility] Specimen Anatomical Collection Method Collection Time Receive d Time (Source) Location / / Volume Laterality Blood 10/06/2020 4:24 PM 4:25 CDT PM CDT Froylan Louise MD LAB - BLOOD ORDERABLES Performing Organization Address City/State/ZIP Code Phon e Number [place] [address] [place], [place] [address] [facility] [address] [place], [place] [address] [facility] [phone] EKG 12-lead complete w/read - Clinics (10/06/2020) Narrative This result has an attachment that is no t available. Froylan Louise MD ECG ORDERABLES documented in this encounter Visit Diagnoses Diagnosis Irregular heartbeat - Primary Cardiac dysrhythmia, unspecified PVC's (premature ventricular contraction s) Other premature beats documented in this encounter Care Teams Retail Sales Assistant Relationship Specialty Start Date End Date Froylan Louise MD PCP - General Family Practice 02/22/14 Froylan Louise MD Assigned PCP 03/13/14 2 documented as of this encounter
--- OUTSIDE RECORDS SUMMARY | 2022-05-15 22:23 | XMS_ITS | Encounter Summary ---
:1955 Author Organization [place] Address [facility] [place] [address] Care Team Providers Name Role Phone Froylan Louise MD Primary Care Provider Unavailable Froylan Louise MD Unavailable Unavailable Encounter Details Date Type Department Care Team Description 09/04/2020 Anticoagulation Therapy [facility] Audrey Louise Chronic deep vein thrombosis (DVT) of lower extremity, unspecified laterality, unspecified vein (H); Visit Clinic Chhaya Dubose MD [facility] current use of ant icoagulant therapy [address] [place] [address] Social History Tobacco Use Types [...] containing 4 or more times a w [place] 05/25/2021 alcohol? How many drinks containing [...] you attend amish or Patient refused 2020 catholic services? Do [...] encounter Progress Notes Diana Nielsen RN - 09/04/2020 10:21 AM CDT Images from the original note were not included. ANTICOAGULATION FOLLOW-UP CLINIC VISIT Patient Name: Virgil Christine Date: 09/04/2020 Contact Type: Telephone SUBJECTIVE: Patient Findings Positives: Change in health (always feels bloated), Change in alcohol use (5-6 beers/night), Changein activity (has been less active over the winter but going back to gym starting today), Change in medications (just finished up a week of antibiotics he had because he wasn't feeling well, also states he's been taking his lasix when his feet are too swollen (not on med list) - advised to speak withP on this) Comments: Finished abx 3 days ago, was on for 1 week (patient very vague about what they were for or who prescribed). Noted he has been pretty down with less work over the winter, less activity, more beer drinking. His new message from PCP regarding high cholesterol, elevated bp and prediabetes, has given him a kick in the pants and he was packing a gym back as he was speaking with this ACC RN. Heplans to work on diet (already has been eating more veggies), but more importantly, cut down on beerdrinking and getting back to the gym. Reviewed maintenance warfarin dosing with patient. Patient will remain on the same dose until next INR check. No other questions or concerns. Scheduled next lab-only INR in 2 weeks. If INR still elevated, despite less beer drinking, then could be related to fish oil and will need to reduce maintenance dosing. Patient stated understanding and is in agreement with plan. Diana Mukherjee RN Anticoagulation Team Clinical Outcomes Negatives: Major bleeding event, Thromboembolic event, Anticoagulation-related hospital admission, Anticoagulation-related ED visit, Anticoagulation-related fatality Comments: Finished abx 3 days ago, was on for 1 week (patient very vague about what they were for or who prescribed). Noted he has been pretty down with less work over the winter, less activity, more beer drinking. His new message from PCP regarding high cholesterol, elevated bp and prediabetes, has given him a kick in the pants and he was packing a gym back as he was speaking with this ACC RN. Heplans to work on diet (already has been eating more veggies), but more importantly, cut down on beerdrinking and getting back to the gym. Reviewed maintenance warfarin dosing with patient. Patient will remain on the same dose until next INR check. No other questions or concerns. Scheduled next lab-only INR in 2 weeks. If INR still elevated, despite less beer drinking, then could be related to fish oil and will need to reduce maintenance dosing. Patient stated understanding and is in agreement with plan. Diana Mukherjee RN Anticoagulation Team OBJECTIVE Recent labs: (last 7 days) 09/03/20 0909 INR 3.20* ASSESSMENT / PLAN INR assessment SUPRA Recheck INR In: 2 WEEKS INR Location Clinic Anticoagulation Summary As of 09/04/2020 INR goal: 2.0-3.0 TTR: 78.0 % (1 y) INR used for dosin.20 (09/03/2020) Warfarin maintenance plan: 5 mg (5 mg x 1) every Wed; 7.5 mg (7.5 mg x 1) all other days Full warfarin instructions: 5 mg every Wed; 7.5 mg all other days Weekly warfarin total: 50 mg Plan last modified: Hilda Burch RN (05/14/2019) Next INR check: 09/18/2020 Priority: Maintenance Target end date: 09/30/2020 Indications Chronic deep vein thrombosis (DVT) of lower extremity unspecified laterality unspecified vein (H) [I82.509] Long-term (current) use of anticoagulants [Z79.01] [Z79.01] Anticoagulation Episode Summary INR check location: Preferred lab: Send INR reminders to: [facility] Comments: Anticoagulation Care Providers Provider Role Specialty Phone number Froylan Louise MD Referring Family Medicine [phone] See the Encounter Report to view Anticoagulation [...] extremity, unspecified laterality, unspecified vein (H) terminal manager current use of anticoagulant t herapy documented in this encounter Care Teams Intelligence Specialist Relationship Specialty Start Date End Date Froylan Loiuse MD PCP - General Family Practice 02/22/14 Froylan Louise MD Assigned PCP 03/13/14 2 documented as of this encounter
--- OUTSIDE RECORDS SUMMARY | 2022-05-15 22:23 | XMS_ITS | Encounter Summary ---
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 How many drinks containing alcohol [...] you attend mu-ism or Patient refused 2020 buddhist services? Do [...] Associated Diagnosis Comme nts CAPILL[place] BLOOD Routine 10/06/2020 3:24 PM Chronic deep vein R esults for this COLLECTION CDT thrombosis (DVT) of procedur e are in lower extremity, the results unspecified section. laterality, unspecified vein (H) INR Routine 10/06/2020 3:24 PM Chronic deep vein Resu lts for this CDT thrombosis (DVT) of procedur e are in lower extremity, the results unspecified section. laterality, unspecified vein (H) detention current use of anticoagulants with INR goal of 2.0-3.0 documented in this encounter Results Capillary Blood Collection (10/06/2020 3:24 PM CDT) Patholo gist Method Time Signature Capillary Capillary 10/06/2020 [place] Blood collection 3:28 PM CDT CLINICS Collection performed [place] Specimen Anatomical Collection Method Collection Time Receive d Time (Source) Location / / Volume Laterality 10/06/2020 3:24 PM 3:25 CDT PM CDT Froyaln Louise MD LAB - LAB COMMUNICATION Performing Organization Address City/State/ZIP Code Phon e Number [facility] [address] [place] [address] (ABNORMAL) INR (10/06/2020 3:24 PM CDT) P athologist Signature INR 2.50 (H) 0.86 - 1.14 10/06/2020 [place] 3:31 PM CDT [facility] Comment: This test is intended for monitoring Cou madin therapy. ??Results are not accurate in patients with prolonged INR due to factor deficiency. Specimen Anatomical Collection Method Collection Time Receive d Time (Source) Location / / Volume Laterality Blood specimen 10/06/2020 3:24 PM 021 3:25 (specimen) CDT PM CDT Froylan Louise MD LAB - BLOOD ORDERABLES Performing Organization Address City/State/ZIP Code Phon e Number [facility] [address] 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
--- OUTSIDE RECORDS SUMMARY | 2022-05-15 22:23 | XMS_ITS | Encounter Summary ---
:1955 Author Organization [place] Address [facility] [place] [address] Care Team Providers Name Role Phone Froylan Louise MD Primary Care Provider Unavailable Froylan Louise MD Unavailable Unavailable Reason for Referral Specialty Diagnoses / Procedures Referred By Contact Refer red To Contact Froylan Louise M [place] [address] [place] [address] Referral ID Status Reason Start Date Expiration Date Visits Requ ested Visits Authorized Reason for Visit Reason Onset Date Comments Referral 09/04/2020 INR Renewal Encounter Details Date Type Department Care Team Description 09/04/2020 [facility] Froylan Louise Refe rral (INR Renewal) Clinic [place] [address] [place] [address] Social History Tobacco Use Types [...] you attend catholic or Patient refused 2020 christian services? Do [...] Telephone Encounter - Diana Nielsen RN - 09/04/2020 10:50 AM CDT ANTICOAGULATION MANAGEMENT Virgil Christine due for annual renewal of referral to anticoagulation monitoring. Order pended for yourreview and signature. ANTICOAGULATION SUMMARY Warfarin indication(s) DVT Heart valve present? NO Current goal range INR: 2.0-3.0 Goal appropriate for indication? Yes, INR 2-3 appropriate for hx of DVT, PE, hypercoagulable state, Afib, LVAD, or bileaflet AVR without risk factors Current duration of therapy Indefinite/jail therapy Time in Therapeutic Range (TTR) (Goal > 60%) 77.0 % Office visit with referring provider's group within last year yes on 05/26/20 Diana Nielsen RN documented in this encounter Plan of Treatment Upcoming Encounters Date Type Specialty Care Team Description 05/20/2022 Lab Lab Scheduled Referrals Name Type Priority Associated Diagnoses Order [facility] ANTICOAGULATION CLINIC Referral Routine shelter current use Ordered: REFERRAL of anticoagulant 09/04/2020 therapy documented as of this encounter 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
--- OUTSIDE RECORDS SUMMARY | 2022-05-15 22:23 | XMS_ITS | Encounter Summary ---
:1955 Author Organization [place] Address [facility] [place] [address] Care Team Providers Name Role Phone Froylan Louise MD Primary Care Provider Unavailable Froylan Louise MD Unavailable Unavailable Encounter Details Date Type Department Care Team Description 09/04/2020 Orders Only [facility] Froylan Louise cross cut sawyer current use of anticoagulants with INR goal of 2.0-3.0 (Primary Dx); Clinic Chhaya Dubose MD Chronic deep vein thrombosis (DVT) of lower extremity, unspecified laterality, unspecified vein (H) [address] [place] [address] Social History Tobacco Use Types [...] containing 4 or more times a w [place] 05/25/2021 alcohol? How many drinks containing alcohol [...] you attend confucianism or Patient refused 2020 evangelical services? Do [...] as of this encounter Visit Diagnoses Diagnosis half-way current use of anticoagulants with INR goal of 2.0-3.0 - Primary Chronic deep vein thrombosis (DVT) of lo wer extremity, unspecified laterality, unspecified vein (H) documented in this encounter Care Teams Sales Representative Relationship Specialty Start Date End Date Froylan Louise MD PCP - General Family Practice 02/22/14 Froylan Louise MD Assigned PCP 03/13/14 2 documented as of this encounter
--- OUTSIDE RECORDS SUMMARY | 2022-05-15 22:23 | XMS_ITS | Encounter Summary ---
:1955 Author Organization [place] Address [address] [place] [address] Care Team Providers Name Role Phone Froylan Louise MD Primary Care Provider Unavailable Froylan Louise MD Unavailable Unavailable Encounter Details Date Type Department Care Team Description 10/12/2020 Travel Social History Tobacco Use Types Packs/Day Years Used Date Smoking Tobacco: Former Cigarettes 2 25 Quit : 08/04/2006 Smokeless Tobacco: Never Comments: 2004 Alcohol Use Standard Drinks/Week Comments Yes 0 (1 standard drink = 0.6 oz pure alcoho l) 4 BEERS A WEEK Alcohol Habits Answer Date Recorded How often do you have a drink containing 4 or more times a w [place] 05/25/2021 alcohol? How many drinks [...] you attend taoist or Patient refused 2020 zoroastrianism services? Do [...] on filedocumented in this encounter Care Teams [facility] Sales Relationship Specialty Start Date End Date Froylan Louise MD PCP - General Family Practice 02/22/14 Froylan Louise MD Assigned PCP 03/13/14 2 documented as of this encounter
--- OUTSIDE RECORDS SUMMARY | 2022-05-15 22:24 | XMS_ITS | Encounter Summary ---
:1955 Author Organization [place] Address [address] [place] [address] Care Team Providers Name Role Phone Froylan Louise MD Primary Care Provider Unavailable Froylan Louise MD Unavailable Unavailable Reason for Visit Reason Comments Medication Refill Encounter Details Date Type Department Care Team Description 07/31/2020 Refill [facility] Froylan Louise Ra, MD Medication Refill [address] [address] Social History Tobacco Use [...] you attend mosque or Patient refused 2020 adventist services? Do [...] been in contact with No / Unsure 07/18/2020 3:08 PM ELECTRICAL ENGINEERING DRAFTING OFFICER someone who was confirmed or suspected to have Coronavirus / COVID-19? documented as of this encounter Miscellaneous Notes Telephone Encounter - Halina Ley RN - 07/31/2020 1:29 PM CST Prescription approved per [facility] Refill Protocol. Halina Bustillos RN, BSN TRICAL ENGINEERING DRAFTING OFFICER documented in this encounter Plan of Treatment Upcoming Encounters Date Type Specialty Care Team Description 05/20/2022 Lab Lab documented as of this encounter Visit Diagnoses Diagnosis Lichen planus documented in this encounter Care Teams Ager Operator Relationship Specialty Start Date End Date Froylan Louise MD PCP - General Family Practice 02/22/14 Froylan Louise MD Assigned PCP 03/13/14 2 documented as of this encounter
--- OUTSIDE RECORDS SUMMARY | 2022-05-15 22:24 | XMS_ITS | Encounter Summary ---
:1955 Author Organization [place] Address [facility] [place] [address] Care Team Providers Name Role Phone Froylan Louise MD Primary Care Provider Unavailable Froylan Louise MD Unavailable Unavailable Esthela Corea RN Unavailable Unavailable So Dodd MD Primary Care Provider Froylan Louise MD Primary Care Provider Unavailable So Dodd MD Unavailable So Dodd MD Primary Care Provider Reason for Visit Reason Onset Date Comments Calling to inform 06/29/2020 Patient would like to inform Dr. Louise he went to the urgent care for his back Encounter Details Date Type Department Care Team Description [facility]/29[facility]2020 [facility] Call ing to inform dr Love Shaver MD (Patient would like to [id number] [place] [address] Dani rodriguez [place], [place] went to the [facility] [address] for his back) [phone] Social History Tobacco Use Types Packs/Day Years Used Date Smoking Tobacco: Former Cigarettes 2 25 Quit : 08/04/2006 Smokeless Tobacco: Never Comments: 2004 Alcohol Use Standard Drinks/Week Comments Yes 0 (1 standard drink = 0.6 oz pure alcoho l) 4 BEERS A WEEK Alcohol Habits Answer Date Recorded How often do you have a drink containing 4 or more times a w [place]all 05/25/2021 alcohol? How many drinks containing alcohol [...] you attend orthodox or Patient refused 2020 spiritism services? Do you belong to any clubs or Yes 05/25/2021 organizations such as orthodox groups, unions, [employer]Tri[employer]e [employer] or athletic groups, or school groups? How [...] been in contact with No / Unsure 06/09/2020 3:26 PM SKIN PILER someone who was confirmed or suspected to have Coronavirus / COVID-19? documented as of this encounter Miscellaneous Notes Telephone Encounter - Esthela Corea RN - 06/30/2020 8:41 AM CST LM should schedule visit with PCP and have MRI report faxed to [phone] Esthela Corea RN PILER Telephone Encounter - Edith Farmer - 06/29/2020 6:38 PM CST Reason for call: Other Patient called regarding (reason for call): call back Additional comments: Patient is calling to inform Dr. Louise that he went to the urgent care at [facility] in [place] and had an MRI done. Patient would like to discuss. Phone number to reach patient: Home number on file [phone] (home) Best Time: As soon as possible Can we leave a detailed message on this number? YES Travel screening: Not Applicable PILER documented in this encounter Plan of Treatment Upcoming Encounters Date Type Specialty Care Team Description 05/20/2022 Lab Lab documented as of this encounter Visit Diagnoses Not on filedocumented in this encounter Care Teams Stage Set Designer Relationship Specialty Start Date End Date Froylan Louise MD PCP - General Family Practice 02/22/14 So Dodd MD PCP - General Family Medicine 01/10/22 01/17/22 [address] [place] [address] Froylan Louise MD PCP - General Family Medicine 01/18/22 So Dodd MD PCP - General Family Medicine 02/21/22 [address] [place], [place] [id number] Froylan Lousie MD Assigned PCP 03/13/14 2 Esthela Corea, RN Personal Advocate & Liaison Family Medicine 10/16 (PAL) So Dodd MD Assigned PCP 01/05/22 [address] [place] [address] documented as of this encounter
--- OUTSIDE RECORDS SUMMARY | 2022-05-15 22:24 | XMS_ITS | Encounter Summary ---
:1955 Author Organization [place] Address [address] [place] [address] Care Team Providers Name Role Phone Froylan Louise MD Primary Care Provider Unavailable Froylan Louise MD Unavailable Unavailable Encounter Details Date Type Department Care Team Description 09/01/2020 Orders Only [facility] Per killian history of DVT [facility] (deep vein thrombosis) [address] [place] [address] Social History Tobacco Use [...] containing 4 or more times a w algaaciq 05/25/2021 alcohol? How many drinks containing alcohol [...] you attend baptist or Patient refused 2020 religion services? Do [...] been in contact with No / Unsure 09/01/2020 2:53 PM PURCHASING ANALYST someone who was confirmed or suspected to have Coronavirus / COVID-19? documented as of this encounter Plan of Treatment Upcoming Encounters Date Type Specialty Care Team Description 05/20/2022 Lab Lab documented as of this encounter Visit Diagnoses Diagnosis Personal history of DVT (deep vein throm bosis) Personal history of venous thrombosis an d embolism documented in this encounter Care Teams Cable Supervisor Relationship Specialty Start Date End Date Froylan Louise MD PCP - General Family Practice 02/22/14 Froylan Louise MD Assigned PCP 03/13/14 2 documented as of this encounter
--- OUTSIDE RECORDS SUMMARY | 2022-05-15 22:24 | XMS_ITS | Encounter Summary ---
:1955 Author Organization [place] Address [address] [place] [address] Care Team Providers Name Role Phone Froylan Louise MD Primary Care Provider Unavailable Froylan Louise MD Unavailable Unavailable Reason for Visit Reason Onset Date Comments Medication Request 08/07/2020 Encounter Details Date Type Department Care Team Description 08/07/[address] [facility] Froylan Louise Ra, Medication Request Chhaya [place] [address] [place] [address] Social History Tobacco Use [...] you attend confucianism or Patient refused 2020 catholic services? Do [...] been in contact with No / Unsure 08/01/2020 3:[address] MAGISTRATE someone who was confirmed or suspected to have Coronavirus / COVID-19? documented as of this encounter Miscellaneous Notes Telephone Encounter - Halina Ley RN - 08/07/2020 12:34 PM CST Patient called stating that since had a dose increase of the hydrochlorothiazide will not be able toget a refill until August but will run out before then since pharmacy does not have record of his newdose on file. Per 07/19/20 note by PCP patient to increase to 25 mg daily, ok to send new dose. New rx was never sent, rx sent to pharmacy. Halina Bustillos RN, BSN [facility] MAGISTRATE documented in this encounter Plan of Treatment Upcoming Encounters Date Type Specialty Care Team Description 05/20/2022 Lab Lab documented as of this encounter Visit Diagnoses Diagnosis Essential hypertension Unspecified essential hypertension documented in this encounter Care Teams Facility Service Associate Relationship Specialty Start Date End Date Froylan Louise MD PCP - General Family Practice 02/22/14 Froylan Louise MD Assigned PCP 03/13/14 2 documented as of this encounter
--- OUTSIDE RECORDS SUMMARY | 2022-05-15 22:24 | XMS_ITS | Encounter Summary ---
:1955 Author Organization [place] Address [address] [place] [address] Care Team Providers Name Role Phone Froylan Louise MD Primary Care Provider Unavailable Froylan Louise MD Unavailable Unavailable Reason for Visit Reason Onset Date Comments Medication Question 08/03/2020 Encounter Details Date Type Department Care Team Description 08/03/2020 Telephone [facility] Froylan Louise Ra, Medication Question Chhaya [place] [address] [place] [address] Social History Tobacco Use [...] 4 or more times a w [place] 05/25/2021 alcohol? How many drinks containing [...] you attend mormon or Patient refused 2020 samaritan services? Do [...] with No / Unsure 08/01/2020 3:27 PM PRACTICE ASSISTANT someone who was confirmed or suspected to have Coronavirus / COVID-19? documented as of this encounter Miscellaneous Notes Telephone Encounter - Halina Ley RN - 08/04/2020 8:23 AM CST Called patient per below. Denies any pain or redness. States that his foot is swollen too and is just extra fluid. Advised patient to follow up with us next week. Halina Bustillos RN, BSN TICE ASSISTANT Telephone Encounter - Froylan Louise MD - 08/03/2020 3:57 PM CST Can take the furosemide daily for a few days in addition - we typically do not use both long-term due to side effects when used together but ok for a few days up to 1 week. Elevate leg and wear compression. If worsening swelling not improving we should see him to evaluate. Especially with recent coumadin hold if having more swelling we would consider US of leg. His INR isback to normal now. If having redness or pain recommend US and we can order that at [facility] or can dothrough ADS tomorrow if worse. TICE ASSISTANT Telephone Encounter - Halina Ley RN - 08/03/2020 3:48 PM CST Patient called stating that his one leg is more swollen and normally takes 25 mg hydrochlorothiazidedaily for this but would like to take his furosemide that he also has on hand from a previous rx. Advised would send message to provider for recommendations to see if this is ok or if another plan of care is more appropriate. Halina Bustillos RN, BSN TICE ASSISTANT documented in this encounter Plan of Treatment Upcoming Encounters Date Type Specialty Care Team Description 05/20/2022 Lab Lab documented as of this encounter Visit Diagnoses Not on filedocumented in this encounter Care Teams Jewelry Consultant Relationship Specialty Start Date End Date Froylan Louise MD PCP - General Family Practice 02/22/14 Froylan Louise MD Assigned PCP 03/13/14 2 documented as of this encounter
--- OUTSIDE RECORDS SUMMARY | 2022-05-15 22:24 | XMS_ITS | Encounter Summary ---
:1955 Author Organization [place] Address [address] [place] [address] Care Team Providers Name Role Phone Froylan Louise MD Primary Care Provider Unavailable Froylan Louise MD Unavailable Unavailable Encounter Details Date Type Department Care Team Description 07/18/2020 Orders Only [facility] Per killian history of DVT [facility] (deep vein thrombosis) [address] [place] [address] Social History Tobacco Use [...] you attend moravian or Patient refused 2020 congregation services? Do [...] with No / Unsure 07/18/2020 3:08 PM HAIR SPRING WINDER someone who was confirmed or suspected to have Coronavirus / COVID-19? documented as of this encounter Plan of Treatment Upcoming Encounters Date Type Specialty Care Team Description 05/20/2022 Lab Lab documented as of this encounter Procedures Procedure Name Priority Date/Time Associated Diagnosis Comme nts INR Routine 07/18/2020 3:10 PM Personal history of Re sults for this HAIR SPRING WINDER DVT (deep vein procedure are in the thrombosis) results section . documented in this encounter Results (ABNORMAL) INR (07/18/2020 3:10 PM HAIR SPRING WINDER) athologist Signature INR 2.90 (H) 0.86 - 1.14 07/18/2020 [place] 3:48 PM [facility] Comment: This test is intended for monitoring Cou madin therapy. ??Results are not accurate in patients with prolonged INR due to factor deficiency. Specimen Anatomical Collection Method Collection Time Receive d Time (Source) Location / / Volume Laterality Blood specimen 07/18/2020 3:10 PM 021 3:12 (specimen) [facility] PM [facility] Froylan Louise MD LAB - BLOOD ORDERABLES Performing Organization Address City/State/ZIP Code Phon e Number [facility] [address] [place] [address] documented in this encounter Visit Diagnoses Diagnosis Personal history of DVT (deep vein throm bosis) Personal history of venous thrombosis an d embolism documented in this encounter Care Teams Director Medical Surgical Relationship Specialty Start Date End Date Froylan Louise MD PCP - General Family Practice 02/22/14 Froylan Louise MD Assigned PCP 03/13/14 2 documented as of this encounter
--- OUTSIDE RECORDS SUMMARY | 2022-05-15 22:24 | XMS_ITS | Encounter Summary ---
:1955 Author Organization [place] Address [address] [place] [address] Care Team Providers Name Role Phone Froylan Louise MD Primary Care Provider Unavailable Froylan Louise MD Unavailable Unavailable Reason for Visit Reason Onset Date Comments Results 08/14/2020 labs from 08/04 Encounter Details Date Type Department Care Team Description 08/14/2020 Telephone [facility] Froylan Louise Resu lts (labs from Clinic Chhaya VILLASEÑOR 08/04) [address] [place] [address] Social History Tobacco Use Types [...] containing 4 or more times a w [place] 05/25/2021 alcohol? How many drinks containing alcohol [...] you attend orthodox or Patient refused 2020 zoroastrianism services? Do [...] with No / Unsure 08/01/2020 3:27 PM DIGITAL FIELD SERVICE TECHNICIAN someone who was confirmed or suspected to have Coronavirus / COVID-19? documented as of this encounter Miscellaneous Notes Telephone Encounter - Froylan Louise MD - 08/14/2020 2:07 PM CST Labs ok. 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 Labs are available to view in [employer] Pt would like his PCP to review the labs and message sent to him in Routing to PCP Thank you Briana Rivas RN on 08/14/2020 at 12:57 PM TAL FIELD SERVICE TECHNICIAN documented in this encounter Plan of Treatment Upcoming Encounters Date Type Specialty Care Team Description 05/20/2022 Lab Lab documented as of this encounter Visit Diagnoses Not on filedocumented in this encounter Care Teams Morgue Technician Relationship Specialty Start Date End Date Froylan Louise MD PCP - General Family Practice 02/22/14 Froylan Louise MD Assigned PCP 03/13/14 2 documented as of this encounter
--- OUTSIDE RECORDS SUMMARY | 2022-05-15 22:24 | XMS_ITS | Encounter Summary ---
:1955 Author Organization [place] Address [address] [place] [address] Care Team Providers Name Role Phone Froylan Louise MD Primary Care Provider Unavailable Froylan Louise MD Unavailable Unavailable Reason for Visit Reason Comments Medication Refill Encounter Details Date Type Department Care Team Description 07/12/[address] [facility] [place], Medication Refill Savannah Isabel [place] PA-C [address] [place] [phone] [place] [address] (Wo rk) Social History Tobacco Use Types [...] containing 4 or more times a w [place] 05/25/2021 alcohol? How many drinks containing alcohol [...] you attend adventist or Patient refused 2020 spiritism services? Do [...] Telephone Encounter - Wendi Lindsay RN - 07/13/2020 9:08 AM CST Routing refill request to provider for review/approval because: Drug not on the [facility] refill protocol Wendi Lindsay RN, BSN LIFT GOUGER documented in this encounter Plan of Treatment Upcoming Encounters Date Type Specialty Care Team Description 05/20/2022 Lab Lab documented as of this encounter Visit Diagnoses Diagnosis Insomnia, unspecified type documented in this encounter Care Teams Mill And Coal Transport Operator Relationship Specialty Start Date End Date Froylan Louise MD PCP - General Family Practice 02/22/14 Froylan Louise MD Assigned PCP 03/13/14 2 documented as of this encounter
--- OUTSIDE RECORDS SUMMARY | 2022-05-15 22:24 | XMS_ITS | Encounter Summary ---
:1955 Author Organization [facility] Address [address] [place] [address] Care Team Providers Name Role Phone Froylan Louise MD Primary Care Provider Unavailable Froylan Louise MD Unavailable Unavailable Encounter Details Date Type Department Care Team Description 08/01/[address] [facility] Per killian history of DVT [facility] (deep vein thrombosis) [address] [place] [address] Social History Tobacco Use [...] containing 4 or more times a w assiniboine and g[place] ventre tribes 05/25/2021 alcohol? How many drinks containing [...] you attend confucianist or Patient refused 2020 catholic services? Do [...] in contact with No / Unsure 08/01/2020 3:10 PM TIP MENDER someone who was confirmed or suspected to have Coronavirus / COVID-19? documented as of this encounter Plan of Treatment Upcoming Encounters Date Type Specialty Care Team Description 05/20/2022 Lab Lab documented as of this encounter Procedures Procedure Name Priority Date/Time Associated Comments Diagnosis CAPILLARY BLOOD Routine 08/01/2020 3:07 PM Personal history of Results for this COLLECTION TIP MENDER DVT (deep vein procedure are in thrombosis) the results section. INR Routine 08/01/2020 3:07 PM Personal history of Re sults for this TIP MENDER DVT (deep vein procedure are in thrombosis) the results section. documented in this encounter Results Capillary Blood Collection (08/01/2020 3:07 PM TIP MENDER) [facility] Method Time Signature Capillary Capillary 08/01/2020 [place] Blood collection 3:13 PM TIP MENDER CLINICS Collection performed [place] Specimen Anatomical Collection Method Collection Time Receive d Time (Source) Location / / Volume Laterality 08/01/2020 3:07 PM 3:12 TIP MENDER PM TIP MENDER Froylan Louise MD LAB - LAB COMMUNICATION Performing Organization Address City/[facility]/ZIP Code Phon e Number [facility] [id number] [place] [address] (ABNORMAL) INR (08/01/2020 3:07 PM TIP MENDER) P athologist Signature INR 2.80 (H) 0.86 - 1.14 08/01/2020 [place] 3:53 PM TIP MENDER [facility] Comment: This test is intended for monitoring Cou madin therapy. ??Results are not accurate in patients with prolonged INR due to factor deficiency. Specimen Anatomical Collection Method Collection Time Receive d Time (Source) Location / / Volume Laterality Blood specimen 08/01/2020 3:07 PM 021 3:12 (specimen) TIP MENDER PM TIP MENDER Froylan Louise MD LAB - BLOOD ORDERABLES Performing Organization Address City/[facility]/ZIP Code Phon e Number [facility] [id number] [place] [address] documented in this encounter Visit Diagnoses Diagnosis Personal history of DVT (deep vein throm bosis) Personal history of venous thrombosis an d embolism documented in this encounter Care Teams Sales And Marketing Manager Relationship Specialty Start Date End Date Froylan Louise MD PCP - General Family Practice 02/22/14 Froylan Louise MD Assigned PCP 03/13/14 2 documented as of this encounter
--- OUTSIDE RECORDS SUMMARY | 2022-05-15 22:24 | XMS_ITS | Encounter Summary ---
:1955 Author Organization [facility] Address [address] [place] [address] Care Team Providers Name Role Phone Froylan Louise MD Primary Care Provider Unavailable Froylan Louise MD Unavailable Unavailable Encounter Details Date Type Department Care Team Description 06/09/2020 Anticoagulation Therapy [facility] Audrey Louise Chronic deep vein thrombosis (DVT) of lower extremity, unspecified laterality, unspecified vein (H); Visit Clinic Chhaya Dubose MD terminal clerk current use of ant icoagulant therapy [address] [place] [address] Social History Tobacco Use Types [...] you attend muslim or Patient refused 2020 christian services? Do [...] with No / Unsure 06/09/2020 3:26 PM GROUP PROGRAM MANAGER someone who was confirmed or suspected to have Coronavirus / COVID-19? documented as of this encounter Progress Notes Stevo Thorne RN - 06/09/2020 4:25 PM CST ANTICOAGULATION FOLLOW-UP CLINIC VISIT Patient Name: Virgil Christine Date: 06/09/2020 Contact Type: Telephone/ Virgil SUBJECTIVE: Patient Findings Positives: Change in medications Comments: Patient started sulfasalazine and prednisone from rhematologist 05/31/20. Clinical Outcomes Negatives: Major bleeding event, Thromboembolic event, Anticoagulation-related hospital admission, Anticoagulation-related ED visit, Anticoagulation-related fatality Comments: Patient started sulfasalazine and prednisone from rhematologist 05/31/20. OBJECTIVE Recent labs: (last 7 days) 06/09/20 1521 INR 2.30* ASSESSMENT / PLAN INR assessment THER Recheck INR In: 3 WEEKS INR Location Clinic Anticoagulation Summary As of 06/09/2020 INR goal: 2.0-3.0 TTR: 74.3 % (1 y) INR used for dosin.30 (06/09/2020) Warfarin maintenance plan: 5 mg (5 mg x 1) every Wed; 7.5 mg (7.5 mg x 1) all other days Full warfarin instructions: 5 mg every Wed; 7.5 mg all other days Weekly warfarin total: 50 mg No change documented: Stevo Thorne RN Plan last modified: Hilda Burch RN (05/14/2019) Next INR check: 06/30/2020 Priority: Maintenance Target end date: 09/30/2020 Indications Chronic deep vein thrombosis (DVT) of lower extremity unspecified laterality unspecified vein (H) [I82.509] Long-term (current) use of anticoagulants [Z79.01] [Z79.01] Anticoagulation Episode Summary INR check location: Preferred lab: Send INR reminders to: STEPHY HERRERA Comments: Anticoagulation Care Providers Provider Role Specialty Phone number Froylan Louise MD Referring Family Medicine [phone] See the Encounter Report to view Anticoagulation Flowsheet and Dosing Calendar (Go to Encounters tabin chart review, and find the Anticoagulation Therapy Visit) Patient INR is therapeutic. Patient will continue to take 50 mg weekly dosing and follow up in 3 weeks or sooner for any problems or concerns. Stevo Thorne RN P PROGRAM MANAGER documented in this encounter Plan of Treatment Upcoming Encounters Date Type Specialty Care Team Description 05/20/2022 Lab Lab documented as of this encounter Visit Diagnoses Diagnosis Chronic deep vein thrombosis (DVT) of lo wer extremity, unspecified laterality, unspecified vein (H) terminal clerk current use of anticoagulant t herapy documented in this encounter Care Teams Case Management Director Relationship Specialty Start Date End Date Froylan Louise MD PCP - General Family Practice 02/22/14 Froylan Louise MD Assigned PCP 03/13/14 2 documented as of this encounter
--- OUTSIDE RECORDS SUMMARY | 2022-05-15 22:24 | XMS_ITS | Encounter Summary ---
:1955 Author Organization [facility] Address [address] [place] [address] Care Team Providers Name Role Phone Froylan Louise MD Primary Care Provider Unavailable Froylan Louise MD Unavailable Unavailable Encounter Details Date Type Department Care Team Description 08/01/2020 Travel Social History Tobacco Use Types Packs/Day Years Used Date Smoking Tobacco: Former Cigarettes 2 25 Quit : 08/04/2006 Smokeless Tobacco: Never Comments: 2004 Alcohol Use Standard Drinks/Week Comments Yes 0 (1 standard drink = 0.6 oz pure alcoho l) 4 BEERS A WEEK Alcohol Habits Answer Date Recorded How often do you have a drink containing 4 or more times a w [place] 05/25/2021 alcohol? How many drinks containing alcohol [...] or relatives? How often do you attend alevism or Patient refused 2020 buddhist services? Do you belong to any clubs or Yes 05/25/2021 organizations such as alevism groups, unions, fraternal or athletic groups, or [...] with No / Unsure 08/01/2020 3:27 PM TANK ERECTOR someone who was confirmed or suspected to have Coronavirus / COVID-19? documented as of this encounter Plan of Treatment Upcoming Encounters Date Type Specialty Care Team Description 05/20/2022 Lab Lab documented as of this encounter Visit Diagnoses Not on filedocumented in this encounter Care Teams Cut Out And Marking Machine Operator Relationship Specialty Start Date End Date Froylan Louise MD PCP - General Family Practice 02/22/14 Froylan Louise MD Assigned PCP 03/13/14 2 documented as of this encounter
--- OUTSIDE RECORDS SUMMARY | 2022-05-15 22:24 | XMS_ITS | Encounter Summary ---
:1955 Author Organization [facility] Address [address] [place] [address] Care Team Providers Name Role Phone Froylan Louise MD Primary Care Provider Unavailable Froylan Louise MD Unavailable Unavailable Reason for Visit Reason Onset Date Comments Orders 07/05/2020 Compression Guilia s Encounter Details Date Type Department Care Team Description 07/05/2020 Telephone [facility] Froylan Louise Orde rs (Compression Clinic [place] MD [place]) [address] [place] [address] Social History Tobacco Use Types [...] you attend taoism or Patient refused 2020 adventist services? Do [...] with No / Unsure 06/09/2020 3:26 PM CALIBRATOR BAROMETERS someone who was confirmed or suspected to have Coronavirus / COVID-19? documented as of this encounter Miscellaneous Notes Telephone Encounter - Carolin Dawson - 07/06/2020 10:06 AM CST Order was faxed to [phone] attn Jazzy Dawson Resource Room Special Education Teacher BRATOR BAROMETERS Telephone Encounter - Wendi Lindsay RN - 07/05/2020 1:39 PM CST refaxed Wendi Lindsay RN, BSN BRATOR BAROMETERS Telephone Encounter - Chris Hernandez - 07/05/2020 1:35 PM CST Reason for Call: Request for an order or referral: Needs to be faxed Order or referral being requested: DME Compressions Stockings Date needed: as soon as possible Has the patient been seen by the PCP for this problem? YES Additional comments: Patient was informed this morning by [facility] that they did not receive any compression stocking orders from provider. Please fax order to [facility] ATTENTION: Jazzy Hein per patient request Phone number Patient can be reached at: Home number on file [phone] (home) Best Time: Any Can we leave a detailed message on this number? Not Applicable Call taken on 07/05/2020 at 1:35 PM by Chris Hernandez BRATOR BAROMETERS documented in this encounter Plan of Treatment Upcoming Encounters Date Type Specialty Care Team Description 05/20/2022 Lab Lab documented as of this encounter Visit Diagnoses Not on filedocumented in this encounter Care Teams Drier Attendant Relationship Specialty Start Date End Date Froylan Louise MD PCP - General Family Practice 02/22/14 Froylan Louise MD Assigned PCP 03/13/14 2 documented as of this encounter
--- OUTSIDE RECORDS SUMMARY | 2022-05-15 22:24 | XMS_ITS | Encounter Summary ---
:1955 Author Organization [facility] Address [address] [place] [address] Care Team Providers Name Role Phone Froylan Louise MD Primary Care Provider Unavailable Froylan Louise MD Unavailable Unavailable Reason for Visit Reason Comments Medication Refill Encounter Details Date Type Department Care Team Description 06/12/2020 Refill [facility] Froylan Louise Ra, MD Medication Refill [address] [address] Social History Tobacco Use [...] containing 4 or more times a w [place] 05/25/2021 alcohol? How many drinks containing alcohol [...] you attend jainism or Patient refused 2020 catholic services? Do [...] with No / Unsure 06/09/2020 3:26 PM HOTEL RECEPTIONIST someone who was confirmed or suspected to have Coronavirus / COVID-19? documented as of this encounter Miscellaneous Notes Telephone Encounter - Wendi Lindsay RN - 06/12/2020 2:54 PM CST The original prescription was discontinued on 05/26/2020 by Froylan Louise MD. L RECEPTIONIST documented in this encounter Plan of Treatment Upcoming Encounters Date Type Specialty Care Team Description 05/20/2022 Lab Lab documented as of this encounter Visit Diagnoses Diagnosis Mild persistent asthma without complicat ion Unspecified asthma documented in this encounter Care Teams Lawn Specialist Relationship Specialty Start Date End Date Froylan Louise MD PCP - General Family Practice 02/22/14 Froylan Louise MD Assigned PCP 03/13/14 2 documented as of this encounter
--- OUTSIDE RECORDS SUMMARY | 2022-05-15 22:24 | XMS_ITS | Encounter Summary ---
:1955 Author Organization [facility] Address [address] [place] [address] Care Team Providers Name Role Phone Froylan Louise MD Primary Care Provider Unavailable Froylan Louise MD Unavailable Unavailable Encounter Details Date Type Department Care Team Description 09/01/2020 Travel Social History Tobacco Use Types Packs/Day [...] you attend zoroastrianism or Patient refused 2020 congregational services? Do [...] in contact with No / Unsure 09/01/2020 2:58 PM FILENET ADMIN someone who was confirmed or suspected to have Coronavirus / COVID-19? documented as of this encounter Plan of Treatment Upcoming Encounters Date Type Specialty Care Team Description 05/20/2022 Lab Lab documented as of this encounter Visit Diagnoses Not on filedocumented in this encounter Care Teams Stave Jointer Relationship Specialty Start Date End Date Froylan Louise MD PCP - General Family Practice 02/22/14 Froylan Louise MD Assigned PCP 03/13/14 2 documented as of this encounter
--- OUTSIDE RECORDS SUMMARY | 2022-05-15 22:24 | XMS_ITS | Encounter Summary ---
:1955 Author Organization [facility] Address [address] [place] [address] Care Team Providers Name Role Phone Froylan Louise MD Primary Care Provider Unavailable Froylan Louise MD Unavailable Unavailable Reason for Visit Reason Onset Date Comments Medication Refill Refill Request 07/20/2020 Encounter Details Date Type Department Care Team Description 07/20/2020 Telephone [facility] Froylan Louise [facility] cation Refill; [facility] Chhaya VILLASEÑOR Refill Request [address] [place] [address] Social History Tobacco Use Types [...] containing 4 or more times a w [place] 05/25/2021 alcohol? How many drinks containing alcohol [...] attend roman catholic or Patient refused 2020 moravian services? Do [...] with No / Unsure 07/18/2020 3:08 PM SCALLOP CUTTER someone who was confirmed or suspected to have Coronavirus / COVID-19? documented as of this encounter Miscellaneous Notes Telephone Encounter - Diana Nielsen RN - 07/20/2020 3:12 PM CST Patient called back. Did not receive message that 5 mg tablets were sent in, but he is now aware andhas no further questions or concerns. Diana Mukherjee RN Anticoagulation Team LOP CUTTER Telephone Encounter - Key Dalton RN - 07/20/2020 3:00 PM CST We did not receive a refill request from the pharmacy for the 5 mg tablets, Just 7.5 mg tablets. A refill for 5 mg tablets sent to the pharmacy and Patient informed. Key Dalton RN Anticoagulation Nurse - [facility] [place] LOP CUTTER Telephone Encounter - Sofia Rojas - 07/20/2020 2:52 PM CST Virgil is calling back-stating the pharmacy only refilled the 7.5mg and normally he takes the 5mg. Wondering what Dr Louise would like him to do in this situation? Please advise- PH: [phone] LOP CUTTER Telephone Encounter - Key Dalton RN - 07/20/2020 1:27 PM CST Anticoagulation Monitoring Instructions Latest Ref Rng & Units 07/18/2020 5 mg every Wed; 7.5 mg all other days Prescription approved per [facility] Refill Protocol. Key Dalton RN Anticoagulation Nurse - [facility] [place] LOP CUTTER Telephone Encounter - Regina Wise RN - 07/20/2020 1:21 PM SCALLOP CUTTER Routing to anticoag team. Regina Wise RN Flex LOP CUTTER Addendum Note - Key Dalton RN - 07/20/2020 12:25 AM SCALLOP CUTTER Addended by: KEY DALTON on: 07/20/2020 03:04 PM Modules accepted: Orders LOP CUTTER documented in this encounter Plan of Treatment Upcoming Encounters Date Type Specialty Care Team Description 05/20/2022 Lab Lab documented as of this encounter Visit Diagnoses Diagnosis Acute deep vein thrombosis (DVT) of prox imal vein of both lower extremities (H) [facility] current use of anticoagulants with INR goal of 2.0-3.0 documented in this encounter Care Teams Meat Selector Relationship Specialty Start Date End Date Froylan Louise MD PCP - General Family Practice 02/22/14 Froylan Louise MD Assigned PCP 03/13/14 2 documented as of this encounter
--- OUTSIDE RECORDS SUMMARY | 2022-05-15 22:24 | XMS_ITS | Encounter Summary ---
:1955 Author Organization [facility] Address [address] [place] [address] Care Team Providers Name Role Phone Froylan Louise MD Primary Care Provider Unavailable Froylan Louise MD Unavailable Unavailable Encounter Details Date Type Department Care Team Description 07/18/2020 Travel Social History Tobacco Use Types Packs/Day Years Used Date Smoking Tobacco: Former Cigarettes 2 25 Quit : 08/04/2006 Smokeless Tobacco: Never Comments: 2004 Alcohol Use Standard Drinks/Week Comments Yes 0 (1 standard drink = 0.6 oz pure alcoho l) 4 BEERS A WEEK Alcohol Habits Answer Date Recorded How often do you have a drink containing 4 or more times a w [place] 05/25/2021 alcohol? How many drinks containing alcohol [...] with No / Unsure 07/18/2020 3:08 PM CARD PUNCHING MACHINE OPERATOR someone who was confirmed or suspected to have Coronavirus / COVID-19? documented as of this encounter Plan of Treatment Upcoming Encounters Date Type Specialty Care Team Description 05/20/2022 Lab Lab documented as of this encounter Visit Diagnoses Not on filedocumented in this encounter Care Teams It Director Relationship Specialty Start Date End Date Froylan Louise MD PCP - General Family Practice 02/22/14 Froylan Louise MD Assigned PCP 03/13/14 2 documented as of this encounter
--- OUTSIDE RECORDS SUMMARY | 2022-05-15 22:24 | XMS_ITS | Encounter Summary ---
:1955 Author Organization [facility] Address [address] [place] [address] Care Team Providers Name Role Phone Froylan Louise MD Primary Care Provider Unavailable Froylan Louise MD Unavailable Unavailable Reason for Visit Reason Onset Date Comments Dme 07/04/2020 compression stocking Encounter Details Date Type Department Care Team Description 07/04/2020 Telephone [facility] Froylan Louise Dme (compression Clinic [place] stocking ) [address] [place] [address] Social History Tobacco Use Types [...] containing 4 or more times a w [place] 05/25/2021 alcohol? How many drinks containing [...] you attend tenriism or Patient refused 2020 oriental orthodox services? Do you belong to any clubs [...] with No / Unsure 06/09/2020 3:26 PM SUBEDITOR someone who was confirmed or suspected to have Coronavirus / COVID-19? documented as of this encounter Miscellaneous Notes Telephone Encounter - Froylan Louise MD - 07/04/2020 11:28 AM CST Signed. 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
--- OUTSIDE RECORDS SUMMARY | 2022-05-15 22:24 | XMS_ITS | Encounter Summary ---
:1955 Author Organization [place] Address [address] [place] [address] Care Team Providers Name Role Phone Froylan Louise MD Primary Care Provider Unavailable Froylan Louise MD Unavailable Unavailable Reason for Visit Reason Onset Date Comments Anticoagulation 07/03/2020 upcoming injection Encounter Details Date Type Department Care Team Description 07/03/2020 Telephone [facility] Froylan Louise Anticotenzinu lation (upcoming Clinic Chhaya Dubose MD injection) [address] [place] [address] Social History Tobacco Use Types [...] or more times a w [place] 05/25/2021 alcohol? How many drinks containing alcohol [...] you attend religion or Patient refused 2020 mandaeism services? Do [...] with No / Unsure 06/09/2020 3:26 PM TIRE BUILDER OPERATOR someone who was confirmed or suspected to have Coronavirus / COVID-19? documented as of this encounter Patient Instructions Patient InstructionsMorales, Diana Conrad RN - 07/03/2020 9:04 AM CST As discussed over the phone, here are your instructions for holding warfarin and bridging with Lovenox. Last warfarin dose: Friday07/05/20, 07/06/20, NO warfarin 07/07/20, NO warfarin 07/08/20, NO warfarin, begin enoxaparin injections into the abdomen every 24 hours in the morning. 07/09/20, NO warfarin, enoxaparin injection into the abdomen in the morning. 07/10/20, NO warfarin, enoxaparin injection into the abdomen in the morning (no enoxaparin 24 hours prior to surgery) 07/11/20, DAY OF PROCEDURE, NO enoxaparin. Restart warfarin 15mg (three 5 mg tabs) in the evening, unless instructed otherwise by the physician. 07/12/20, Restart enoxaparin injections into the abdomen every 24 hours (in the morning), unlessinstructed otherwise by the physician, and 10mg (two 5 mg tabs) warfarin in the evening. , 07/13/20, Enoxaparin injection into the abdomen in the morning and 7.5mg (one tab) warfarin inthe evening. 07/14/20, Enoxaparin injection into the abdomen in the morning and 7.5mg (one tab) warfarin in the evening. 07/15/20, Enoxaparin injection into the abdomen in the morning and 7.5mg (one tab) warfarin in the evening. 07/16/20, Enoxaparin injection into the abdomen in the morning and 7.5mg (one tab) warfarin in the evening. 07/17/20, Enoxaparin injection into the abdomen in the morning and 7.5mg (one tab) warfarin in the evening. , 07/18/20, Enoxaparin injection into the abdomen in the morning. Recheck INR at the [facility] for further dosing instructions. INR must be 2.3 or greater to stop Lovenox injections. If you have any questions please call the Anticoagulation Clinic at [phone]. BUILDER OPERATOR documented in this encounter Miscellaneous Notes Telephone Encounter - Stevo Thorne RN - 07/07/2020 4:36 PM TIRE BUILDER OPERATOR I left a message for patient asking if he had any questions concerns before beginning loevnox tomorrow and left [place] number for him to return call. Transfer to [phone]. Rosmery Thorne RN [facility] [place] BUILDER OPERATOR Telephone Encounter - Froylan Louise MD - 07/05/2020 2:56 PM CST Discussed with patient. Agree with plan and timing as documented for bridging. He agrees with plan and understanding of rationale and discussed risk/benefit or recurrent limb threatening clot as prior with his history versus low likelihood of bleeding complication as long as he follows schedule. He agrees to bridging plan. Thank for your detailed care of this patient. He may benefit from anticoag clinic or PAL to reach out to him on Friday to make sure he is following plan as detailed. BUILDER OPERATOR Telephone Encounter - Diana Nielsen RN - 07/05/2020 10:44 AM CST Patient had called earlier this morning to ACC RN with questions about risks/benefits of taking Lovenox, specifically what he read in literature about increased risk of spinal bleeding. [facility] RN advised he discuss with Dr. Louise before making final decision. Routing to provider for further advice. Diana Mukherjee RN Anticoagulation Team BUILDER OPERATOR Telephone Encounter - Carolin Dawson - 07/05/2020 10:17 AM CST Patient called the clinic requesting to speak to the nurse regarding the Lovenox, he states he doesn't think he is going to do it. Please call patient back at [phone]. Carolin Dawson Senior Sas Developer BUILDER OPERATOR Telephone Encounter - Wendi Lindsay RN - 07/04/2020 12:04 PM CST Print screened the pt instructions Brought to the first front ventilator Wendi Lindsay RN, BSN BUILDER OPERATOR Telephone Encounter - Diana Nielsen RN - 07/04/2020 11:29 AM CST Called patient. He state his procedure has been moved from 07/10/20 to 07/11/20. He agreed to the Lovenox bridging. Prescription sent to preferred pharmacy. Reviewed warfarin hold, lovenox bridge and warfarin restart instructions with patient over the phone. Patient also wants written instructions printed and walked to front of [facility]. He will sisal picker later today. Diana Mukherjee RN Anticoagulation Team BUILDER OPERATOR Telephone Encounter - Antonieta Randhawa RPH - 07/04/2020 10:50 AM TIRE BUILDER OPERATOR Patient has started sulfasalazine 05/31/2020, would expect INR to decrease with no dose change after4-6 weeks, therefore may be subtherapeutic at this point going in to hold. Advise more aggressive restart 15mg 07/10/2020 (or day 1 of restart if advise to delay resuming warfarin) and 10mg day 2 of restart. May want to reschedule INR recheck to 07/17/2020, and will need another check 710 days after if back to range to address potential need for maintenance dose adjustment. Antonieta Randhawa PharmD BCACP Anticoagulation Clinical Pharmacist BUILDER OPERATOR Telephone Encounter - Froylan Louise MD - 07/04/2020 9:51 AM CST Yes I suppose he could fall into the severe thrombophilia group so if he is willing to use Lovenoxthen that would be ideal. Can you contact him to discuss this plan? 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 Lupus anticoagulant was positive 2x at least 12 weeks apart in December & May 2018, which does classify Virgil as high risk. He however has stated he has side effects of night sweats with Lovenox 40mg per notes from 05/2018 procedure documentation when it was last prescribed. Karie WuD [facility] Anticoagulation Clinical Pharmacist Electronically signed by Antonieta Randhawa [facility] at 07/03/2020 5:53 PM TIRE BUILDER OPERATOR Telephone Encounter - Diana Nielsen RN - 07/03/2020 5:26 PM CST Noted on anticoag calendar. Patient has INR already scheduled for 4 days after procedure. Routing to Anticoag Pharm D for review. Diana Mukherjee RN Anticoagulation Team BUILDER OPERATOR Telephone Encounter - Esthela Corea RN - 07/03/2020 1:30 PM CST Pt notified can hold warfarin for 5 days before 07/10 injection at [facility] Will notified anticoag team Esthela Corea RN BUILDER OPERATOR Telephone Encounter - Froylan Louise MD - 07/03/2020 12:09 PM CST Warfarin (not Metformin) is what this question is about. Yes, he can hold Warfarin for 5 days prior to procedure. BUILDER OPERATOR Telephone Encounter - Esthela Calles, RN - 07/03/2020 9:[address] Louise please see below message regarding Metformin and advise. Thank you, Esthela Calles R.N. BUILDER OPERATOR Telephone Encounter - Tre Dwyer - 07/03/2020 9:04 AM CST Reason for Call: Patient is having an upcoming injection with [email or web address] on 07/07/2020. Itzel from [employer] is calling to ask Dani if he can safely hold pt's metformin for five days prior to this injection. Itzel would like a call at [phone] to confirm (any nurse is fine to take the call) Detailed comments: Please update pt as well to confirm holding the metformin before this injection Phone Number Patient can be reached at: [phone] Best Time: any Can we leave a detailed message on this number? YES Call taken on 07/03/2020 at 9:04 AM by Tre Dwyer BUILDER OPERATOR documented in this encounter Plan of Treatment Upcoming Encounters Date Type Specialty Care Team Description 05/20/2022 Lab Lab documented as of this encounter Visit Diagnoses Diagnosis [facility] current use of anticoagulant t herapy - Primary Chronic deep vein thrombosis (DVT) of lo wer extremity, unspecified laterality, unspecified vein (H) documented in this encounter Care Teams Butadiene Converter Utility Operator Relationship Specialty Start Date End Date Froylan Louise MD PCP - General Family Practice 02/22/14 Froylan Louise MD Assigned PCP 03/13/14 2 documented as of this encounter
--- OUTSIDE RECORDS SUMMARY | 2022-05-15 22:24 | XMS_ITS | Encounter Summary ---
:1955 Author Organization [place] Address [facility] [place] [address] Care Team Providers Name Role Phone Froylan Louise MD Primary Care Provider Unavailable Froylan Louise MD Unavailable Unavailable Encounter Details Date Type Department Care Team Description 08/01/2020 Anticoagulation Therapy [facility] Audrey Louise Chronic deep vein thrombosis (DVT) of lower extremity, unspecified laterality, unspecified vein (H); Visit Clinic Chhaya Dubose MD assistant terminal manager current use of ant icoagulant therapy [address] [place] [address] Social History Tobacco Use Types [...] containing 4 or more times a w [place] 05/25/2021 alcohol? How many drinks containing alcohol [...] attend oriental orthodox or Patient refused 2020 tenriism services? Do [...] with No / Unsure 08/01/2020 3:27 PM FREIGHT SERVICE INSPECTOR someone who was confirmed or suspected to have Coronavirus / COVID-19? documented as of this encounter Progress Notes Diana Nielsen RN - 08/01/2020 4:18 PM CST ANTICOAGULATION FOLLOW-UP CLINIC VISIT Patient Name: Virgil Christine Date: 08/01/2020 Contact Type: Telephone SUBJECTIVE: Patient Findings Comments: Called patient to discuss today's INR results: The patient was assessed for diet, medication, and activity level changes, missed or extra doses, bruising or bleeding, with no problem findings. Patient is continuing with healthier diet (more green veggies), less alcohol, probiotic and fish oil. Reviewed maintenance warfarin dosing with patient. Patient will remain on the same dose until next INR check. No other questions or concerns. Scheduled next lab-only INR and bp check in 4 weeks. Diana Mukherjee RN Anticoagulation Team Clinical Outcomes Negatives: Major bleeding event, Thromboembolic event, Anticoagulation-related hospital admission, Anticoagulation-related ED visit, Anticoagulation-related fatality Comments: Called patient to discuss today's INR results: The patient was assessed for diet, medication, and activity level changes, missed or extra doses, bruising or bleeding, with no problem findings. Patient is continuing with healthier diet (more green veggies), less alcohol, probiotic and fish oil. Reviewed maintenance warfarin dosing with patient. Patient will remain on the same dose until next INR check. No other questions or concerns. Scheduled next lab-only INR and bp check in 4 weeks. Diana Mukherjee RN Anticoagulation Team OBJECTIVE Recent labs: (last 7 days) 08/01/20 1507 INR 2.80* ASSESSMENT / PLAN INR assessment THER Recheck INR In: 4 WEEKS INR Location Clinic Anticoagulation Summary As of 08/01/2020 INR goal: 2.0-3.0 TTR: 77.0 % (1 y) INR used for dosin.80 (08/01/2020) Warfarin maintenance plan: 5 mg (5 mg x 1) every Wed; 7.5 mg (7.5 mg x 1) all other days Full warfarin instructions: 5 mg every Wed; 7.5 mg all other days Weekly warfarin total: 50 mg No change documented: Diana Nielsen RN Plan last modified: Hilda Burch RN (05/14/2019) Next INR check: 09/01/2020 Priority: Maintenance Target end date: 09/30/2020 Indications Chronic deep vein thrombosis (DVT) of lower extremity unspecified laterality unspecified vein (H) [I82.509] Long-term (current) use of anticoagulants [Z79.01] [Z79.01] Anticoagulation Episode Summary INR check location: Preferred lab: Send INR reminders to: [facility] Comments: Anticoagulation Care Providers Provider Role Specialty Phone number Froylan Louise MD Referring Family Medicine [phone] See the Encounter Report to view Anticoagulation Flowsheet and Dosing Calendar (Go to Encounters tabin chart review, and find the Anticoagulation Therapy Visit) Diana Nielsen RN GHT SERVICE INSPECTOR documented in this encounter Plan of Treatment Upcoming Encounters Date Type Specialty Care Team Description 05/20/2022 Lab Lab documented as of this encounter Visit Diagnoses Diagnosis Chronic deep vein thrombosis (DVT) of lo wer extremity, unspecified laterality, unspecified vein (H) longterm current use of anticoagulant t herapy documented in this encounter Care Teams Poultry Offal Icer Relationship Specialty Start Date End Date Froylan Louise MD PCP - General Family Practice 02/22/14 Froylan Louise MD Assigned PCP 03/13/14 2 documented as of this encounter
--- OUTSIDE RECORDS SUMMARY | 2022-05-15 22:24 | XMS_ITS | Encounter Summary ---
:1955 Author Organization [place] Address [facility] [place] [address] Care Team Providers Name Role Phone Froylan Louise MD Primary Care Provider Unavailable Froylan Louise MD Unavailable Unavailable Encounter Details Date Type Department Care Team Description 07/18/2020 Anticoagulation Therapy [facility], Chronic deep vein thrombosis (DVT) of lower extremity, unspecified laterality, unspecified vein (H); Visit [facility] [place] Esthela Dobbs, [facility] current use of ant icoagulant therapy [address] [place] [address] Social History Tobacco Use Types Packs/Day Years [...] you attend mandaen or Patient refused 2020 gnosticist services? Do you belong to any clubs [...] with No / Unsure 07/18/2020 3:08 PM CONSERVATION AGENT someone who was confirmed or suspected to have Coronavirus / COVID-19? documented as of this encounter Progress Notes Esthela Randhawa RN - 07/18/2020 6:09 PM CST ANTICOAGULATION FOLLOW-UP CLINIC VISIT Patient Name: Virgil Christine Date: 07/18/2020 Contact Type: Telephone/ Called patient, he reports multiple changes. Orders discussed with the patient, he agrees with the plan. Lab INR appointment scheduled on 08/01/20. SUBJECTIVE: Patient Findings Positives: Change in health (Patgient reports he is trying to lose weight. ), Change in alcohol use(Patient reports has not had any beer in 2 days. ), Extra doses (Patient had a warfarin boost 07/11 and 07/12 after a warfarin hold. ), Change in medications (Patient reports he started a probiotic and fish oil. Prednisone is complete. ), Change in diet/appetite (Patient reports he is eating more vegetables.) Comments: The patient was assessed for activity level changes, missed doses, bruising or bleeding, with no problem findings. Maintenance warfarin dosing was reviewed with patient and will remain on the same dose until next INR check. Patient did not have any questions or concerns. Clinical Outcomes Comments: The patient was assessed for activity level changes, missed doses, bruising or bleeding, with no problem findings. Maintenance warfarin dosing was reviewed with patient and will remain on the same dose until next INR check. Patient did not have any questions or concerns. OBJECTIVE Recent labs: (last 7 days) 07/18/20 1510 INR 2.90* ASSESSMENT / PLAN INR assessment THER Recheck INR In: 2 WEEKS INR Location Outside lab Anticoagulation Summary As of 07/18/2020 INR goal: 2.0-3.0 TTR: 75.9 % (1 y) INR used for dosin.90 (07/18/2020) Warfarin maintenance plan: 5 mg (5 mg x 1) every Wed; 7.5 mg (7.5 mg x 1) all other days Full warfarin instructions: 5 mg every Wed; 7.5 mg all other days Weekly warfarin total: 50 mg No change documented: Esthela Randhawa RN Plan last modified: Hilda Burch RN (05/14/2019) Next INR check: 08/01/2020 Priority: Maintenance Target end date: 09/30/2020 Indications Chronic deep vein thrombosis (DVT) of lower extremity unspecified laterality unspecified vein (H) [I82.509] Long-term (current) use of anticoagulants [Z79.01] [Z79.01] Anticoagulation Episode Summary INR check location: Preferred lab: Send INR reminders to: [facility] Comments: Anticoagulation Care Providers Provider Role Specialty Phone number Froylan Louise MD Referring Family Medicine [phone] See the Encounter Report to view Anticoagulation Flowsheet and Dosing Calendar (Go to Encounters tabin chart review, and find the Anticoagulation Therapy Visit) Dosage adjustment made based on physician directed care plan. Esthela Randhawa RN ERVATION AGENT documented in this encounter Plan of Treatment Upcoming Encounters Date Type Specialty Care Team Description 05/20/2022 Lab Lab documented as of this encounter Visit Diagnoses Diagnosis Chronic deep vein thrombosis (DVT) of lo wer extremity, unspecified laterality, unspecified vein (H) [facility] current use of anticoagulant t herapy documented in this encounter Care Teams Can Line Examiner Relationship Specialty Start Date End Date Froylan Louise MD PCP - General Family Practice 02/22/14 Froylan Louise MD Assigned PCP 03/13/14 2 documented as of this encounter
--- OUTSIDE RECORDS SUMMARY | 2022-05-15 22:24 | XMS_ITS | Encounter Summary ---
:1955 Author Organization [place] Address [address] [place] [address] Care Team Providers Name Role Phone Froylan Louise MD Primary Care Provider Unavailable Froylan Louise MD Unavailable Unavailable Reason for Visit Reason Comments Medication Refill Encounter Details Date Type Department Care Team Description 08/29/2020 Refill [facility] Froylan Louise Ra, MD Medication Refill [address] [address] Social History Tobacco Use [...] you attend druze or Patient refused 2020 rastafari services? Do [...] with No / Unsure 08/01/2020 3:27 PM NONDESTRUCTIVE TESTER someone who was confirmed or suspected to have Coronavirus / COVID-19? documented as of this encounter Miscellaneous Notes Telephone Encounter - Wendi Lindsay RN - 08/29/2020 1:23 PM CST Routing refill request to provider for review/approval because: Drug not on the [facility] refill protocol Wendi Lindsay RN, BSN ESTRUCTIVE TESTER documented in this encounter Plan of Treatment Upcoming Encounters Date Type Specialty Care Team Description 05/20/2022 Lab Lab documented as of this encounter Visit Diagnoses Diagnosis H/O ulcerative colitis Personal history of other diseases of di gestive system documented in this encounter Care Teams Fountain Attendant Relationship Specialty Start Date End Date Froylan Louise MD PCP - General Family Practice 02/22/14 Froylan Louise MD Assigned PCP 03/13/14 2 documented as of this encounter
--- OUTSIDE RECORDS SUMMARY | 2022-05-15 22:24 | XMS_ITS | Encounter Summary ---
:1955 Author Organization [place] Address [address] [place] [address] Care Team Providers Name Role Phone Froylan Louise MD Primary Care Provider Unavailable Froylan Louise MD Unavailable Unavailable Reason for Visit Reason Comments Allied Health Visit Encounter Details Date Type Department Care Team Description 08/01/2020 Allied Health/Nurse Health [facility] Allied Health Visit Visit [address] [address] Social History Tobacco Use [...] containing 4 or more times a w [place] 05/25/2021 alcohol? How many drinks containing alcohol [...] you attend rastafarian or Patient refused 2020 scientology services? Do [...] with No / Unsure 08/01/2020 3:27 PM STRIKER OUT someone who was confirmed or suspected to have Coronavirus / COVID-19? documented as of this encounter Last Filed Vital Signs Vital Sign Reading Time Taken Comments Blood Pressure 138/84 08/01/2020 3:44 PM STRIKER OUT Pulse 102 08/01/2020 3:44 PM STRIKER OUT Temperature - - Respiratory Rate - - Oxygen Saturation 97% 08/01/2020 3:44 PM STRIKER OUT Inhaled Oxygen Concentration - - Weight - - Height - - Body Mass Index - - documented in this encounter Plan of Treatment Upcoming Encounters Date Type Specialty Care Team Description 05/20/2022 Lab Lab documented as of this encounter Visit Diagnoses Diagnosis BP check - Primary Screening for hypertension documented in this encounter Care Teams Ice Cream Truck Driver Relationship Specialty Start Date End Date Froylan Louise MD PCP - General Family Practice 02/22/14 Froylan Louise MD Assigned PCP 03/13/14 2 documented as of this encounter
--- OUTSIDE RECORDS SUMMARY | 2022-05-15 22:24 | XMS_ITS | Encounter Summary ---
:1955 Author Organization [place] Address [address] [place] [address] Care Team Providers Name Role Phone Froylan Louise MD Primary Care Provider Unavailable Froylan Louise MD Unavailable Unavailable Reason for Visit Reason Comments Allied Health Visit Encounter Details Date Type Department Care Team Description 07/18/2020 Allied Health/Nurse Health [facility] [place] Allied Health Visit Visit [address] [address] Social History Tobacco Use [...] 4 or more times a w [place] 05/25/2021 alcohol? How many drinks containing alcohol [...] you attend anglican or Patient refused 2020 episcopalian services? Do you belong to any clubs [...] with No / Unsure 07/18/2020 3:08 PM SUPERVISOR AGENCY APPOINTMENTS someone who was confirmed or suspected to have Coronavirus / COVID-19? documented as of this encounter Last Filed Vital Signs Vital Sign Reading Time Taken Comments Blood Pressure 136/88 07/18/2020 4:35 PM SUPERVISOR AGENCY APPOINTMENTS Pulse 98 07/18/2020 4:35 PM SUPERVISOR AGENCY APPOINTMENTS Temperature - - Respiratory Rate - - Oxygen Saturation - - Inhaled Oxygen Concentration - - Weight - - Height - - Body Mass Index - - documented in this encounter Progress Notes Homa Gracia - 07/18/2020 4:00 PM CST Virgil Christine is a 64 year old patient who comes in today for a Blood Pressure check. Initial BP: BP (!) 150/80 (BP Location: Right arm, Patient Position: Chair, Cuff Size: Adult Large) Pulse 74 74 Disposition: follow-up as previously indicated by provider Pt is taking medication as prescribed. Pt is also working on diet change to lose some weight. Pleaseadvise pt on next step. BP Readings from Last 6 Encounters: 07/18/20 (!) 150/80 06/09/20 (!) 144/92 05/26/20 (!) 152/83 05/31/19 136/74 05/05/19 130/80 01/09/19 134/78 KENYATTA Villaseñor RVISOR AGENCY APPOINTMENTS documented in this encounter Plan of Treatment Upcoming Encounters Date Type Specialty Care Team Description 05/20/2022 Lab Lab documented as of this encounter Visit Diagnoses Diagnosis BP check - Primary Screening for hypertension documented in this encounter Care Teams Shellacker Relationship Specialty Start Date End Date Froylan Louise MD PCP - General Family Practice 02/22/14 Froylan Louise MD Assigned PCP 03/13/14 2 documented as of this encounter
--- OUTSIDE RECORDS SUMMARY | 2022-05-15 22:24 | XMS_ITS | Encounter Summary ---
:1955 Author Organization [place] Address [address] [place] [address] Care Team Providers Name Role Phone Froylan Louise MD Primary Care Provider Unavailable Froylan Louise MD Unavailable Unavailable Reason for Visit Reason Onset Date Comments Hypertension 09/01/2020 nurse only Encounter Details Date Type Department Care Team Description 09/01/2020 Telephone [facility] Froylan Louise Hype rtension (nurse Clinic Chhaya VILLASEÑOR only) [address] [place] [address] Social History Tobacco Use Types [...] containing 4 or more times a w [place] 05/25/2021 alcohol? How many drinks containing alcohol [...] you attend restoration or Patient refused 2020 yarsani services? Do [...] Telephone Encounter - Berto Daniel CMA - 09/01/2020 3:23 PM CST Vital Signs 06/09/2020 07/18/2020 07/18/2020 08/01/2020 09/01/2020 Systolic 144 150 136 138 138 Diastolic 92 80 88 84 84 Pulse 74 74 98 102 95 Temperature Respirations 16 Weight (LB) Height BMI (Calculated) Pain O2 97 97 Pt sat for only 4 minutes, he was in a hurry, NO change in his BP. If you need to reach out, please use [facility] [employer].Berto Daniel CMA PREP COOK documented in this encounter Plan of Treatment Upcoming Encounters Date Type Specialty Care Team Description 05/20/2022 Lab Lab documented as of this encounter Visit Diagnoses Not on filedocumented in this encounter Care Teams Special Agent Secret Service Relationship Specialty Start Date End Date Froylan Louise MD PCP - General Family Practice 02/22/14 Froylan Louise MD Assigned PCP 03/13/14 2 documented as of this encounter
--- OUTSIDE RECORDS SUMMARY | 2022-05-15 22:24 | XMS_ITS | Encounter Summary ---
:1955 Author Organization [facility] Address [address] [place] [address] Care Team Providers Name Role Phone Dhruv Louise MD Primary Care Provider Unavailable Dhruv Louise MD Unavailable Unavailable Encounter Details Date Type Department Care Team Description 09/03/2020 Orders Only [facility] Hyp erlipidemia LDL goal <130 (Primary Dx); [facility] Essential hypertension; [address] [facility] Lipid screening; [place] [address] Personal history of DVT (gino p vein thrombosis) [phone] Social History Tobacco Use Types Packs/Day Years Used Date Smoking Tobacco: Former Cigarettes 2 25 Quit : 08/04/2006 Smokeless Tobacco: Never Comments: 2004 Alcohol Use Standard Drinks/Week Comments Yes 0 (1 standard drink = 0.6 oz pure alcoho l) 4 BEERS A WEEK Alcohol Habits Answer Date Recorded How often do you have a drink containing 4 or more times a w ely [place] 05/25/2021 alcohol? How many drinks containing [...] you attend mandaeism or Patient refused 2020 latter-day services? Do [...] documented as of this encounter Miscellaneous Notes Addendum Note - Dhruv Louise MD - 09/03/2020 9:00 AM CDT Addended by: DHRUV LOUISE on: 09/04/2020 12:35 PM Modules accepted: Orders documented in this encounter Plan of Treatment Upcoming Encounters Date Type Specialty Care Team Description 05/20/2022 Lab Lab documented as of this encounter Procedures Procedure Name Priority Date/Time Associated Diagnosis Comme nts INR Routine 09/03/2020 9:09 AM Personal history of Re sults for this CDT DVT (deep vein procedure are in thrombosis) the results section. LIPID REFLEX TO Routine 09/03/2020 9:09 AM Lipid screening Res ults for this DIRECT LDL PANEL CDT procedure a re in the results section. BASIC METABOLIC Routine 09/03/2020 9:09 AM Essential Result s for this PANEL CDT hypertension procedure are i n the results section. documented in this encounter Results (ABNORMAL) INR (09/03/2020 9:09 AM CDT) P athologist Signature INR 3.20 (H) 0.86 - 1.14 09/03/2020 [facility] 12:12 PM CDT [facility] Comment: This test is intended for monitoring Cou madin therapy. ??Results are not accurate in patients with prolonged INR due to factor deficiency. Specimen Anatomical Collection Method Collection Time Receive d Time (Source) Location / / Volume Laterality Blood specimen 09/03/2020 9:09 AM 021 9:10 (specimen) CDT AM CDT Dhruv Louise MD LAB - BLOOD ORDERABLES Performing Organization Address City/State/ZIP Code Phon e Number [facility] [id number] [place], [place] [id number] (ABNORMAL) Lipid panel reflex to direct LDL Fasting (09/03/2020 9:09 AM CDT) Analysis Performed At Patho logist Time Signature Cholesterol 196 <200 mg/dL 09/03/2020 [facility] 2:17 PM T [facility] Triglycerides 211 (H) <150 mg/dL 09/03/2020 [facility] 2:18 PM T [facility] Comment: Borderline high: ??150-199 mg/dl High: ? 200-499 mg/dl Very high: ? >499 mg/dl Fasting specimen HDL Cholesterol 36 (L) >39 mg/dL 09/03/2020 2:22 PM [facility] T [facility] LDL Cholesterol 118 (H) <100 mg/dL 09/03/2020 2:22 PM [facility] Calculated T [facility] Comment: Above desirable: ??100-129 mg/dl Borderline High: ??130-159 mg/dL High: ? 160-189 mg/dL Very high: ? >189 mg/dl Non HDL Cholesterol 160 (H) <130 mg/dL 09/03/2020 2:22 PM [facility] Comment: Above Desirable: ??130-159 mg/dl Borderline high: ??160-189 mg/dl High: ? 190-219 mg/dl Very high: ? >219 mg/dl Specimen Anatomical Collection Method Collection Time Receive d Time (Source) Location / / Volume Laterality Blood specimen 09/03/2020 9:09 AM 021 9:10 (specimen) CDT AM CDT Dhruv Louise MD LAB - BLOOD ORDERABLES Performing Organization Address City/State/ZIP Code Phon e Number [facility] [address] [place], [place] [address] [facility] [address] [address], [place] [phone] (ABNORMAL) Basic metabolic panel (Ca, Cl, CO2, Creat, Gluc, K, Na, BUN) (09/03/2020 9:09 AM CDT) Analysis Performed At Patho logist Time Signature Sodium 139 133 - 144 09/03/2020 [facility] mmol/L 2:12 PM CDT [facility] Potassium 4.0 3.4 - 5.3 09/03/2020 [facility] mmol/L 2:12 PM T [facility] Chloride 107 94 - 109 09/03/2020 [facility] mmol/L 2:12 PM T [facility] Carbon Dioxide 30 20 - 32 09/03/2020 [facility] mmol/L 2:17 PM [facility] Anion Gap 2 (L) 3 - 14 09/03/2020 [facility] mmol/L 2:17 PM [facility] Glucose 105 (H) 70 - 99 09/03/2020 [facility] mg/dL 2:17 PM [facility] Comment: Fasting specimen Urea Nitrogen 15 7 - 30 mg/dL 09/03/2020 2:17 PM [facility] Creatinine 0.89 0.66 - 1.25 mg/dL 09/03/2020 2:17 PM [facility] GFR Estimate >90 >60 09/03/2020 2:17 PM T [facility] mL/min/{1.73_m2} [facility] Comment: Non GFR Calc Starting 06/09/2018, serum creatinine ba sed estimated GFR (eGFR) will be calculated using the Chronic Kidney Dise [facility] Epidemiology Collaboration (CKD-EPI) equation. GFR Estimate If >90 >60 mL/min/{1.73_m2} 09/03/2020 2: 17 PM [facility] Comment: GFR Calc Starting 06/09/2018, serum creatinine ba sed estimated GFR (eGFR) will be calculated using the Chronic Kidney Dise [facility] Epidemiology Collaboration (CKD-EPI) equation. Calcium 8.8 8.5 - 10.1 mg/dL 09/03/2020 2:17 PM [facility] Specimen Anatomical Collection Method Collection Time Receive d Time (Source) Location / / Volume Laterality Blood specimen 09/03/2020 9:09 AM 021 9:10 (specimen) CDT AM CDT Dhruv Louise MD LAB - BLOOD ORDERABLES Performing Organization Address City/State/ZIP Code Phon e Number M [facility] [address] [address] [phone] [facility] [address] [place], [place] [address] [facility] [address] [address], [phone] documented in this encounter Visit Diagnoses Diagnosis Hyperlipidemia LDL goal <130 - Primary Other and unspecified hyperlipidemia Essential hypertension Unspecified essential hypertension Lipid screening Screening for lipoid disorders Personal history of DVT (deep vein throm bosis) Personal history of venous thrombosis an d embolism documented in this encounter Care Teams Casino Supervisor Relationship Specialty Start Date End Date Dhruv Louise MD PCP - General Family Practice 02/22/14 Dhruv Louise MD Assigned PCP 03/13/14 2 documented as of this encounter
--- OUTSIDE RECORDS SUMMARY | 2022-05-15 22:24 | XMS_ITS | Encounter Summary ---
:1955 Author Organization [facility] Address [address] [place] [address] Care Team Providers Name Role Phone Froylan Louise MD Primary Care Provider Unavailable Froylan Louise MD Unavailable Unavailable Reason for Visit Reason Onset Date Comments Hypertension 08/01/2020 nurse Encounter Details Date Type Department Care Team Description 08/01/2020 Telephone [facility] Froylan Louise Ra, Hypertension (nurse) Chhaya VILLASEÑOR [address] [place] [address] Social History Tobacco Use [...] containing 4 or more times a w [place] 05/25/2021 alcohol? How many drinks containing alcohol [...] you attend moravian or Patient refused 2020 anglican services? Do [...] with No / Unsure 08/01/2020 3:27 PM INTERMEDIATE DESIGNER someone who was confirmed or suspected to have Coronavirus / COVID-19? documented as of this encounter Miscellaneous Notes Telephone Encounter - Berto Daniel CMA - 08/01/2020 3:46 PM CST Vital Signs 05/26/2020 06/09/2020 07/18/2020 07/18/2020 08/01/2020 Systolic 152 144 150 136 138 Diastolic 83 92 80 88 84 Pulse 101 74 74 98 102 Temperature 97.6 Respirations Weight (LB) 238 lb Height 5' 10.5 BMI (Calculated) 33.67 Pain O2 97 97 Pt sat for only about 5 minutes, NO call is needed, he has another nurse only BP set up in 2 weeks.Berto Daniel CMA RMEDIATE DESIGNER documented in this encounter Plan of Treatment Upcoming Encounters Date Type Specialty Care Team Description 05/20/2022 Lab Lab documented as of this encounter Visit Diagnoses Not on filedocumented in this encounter Care Teams Process Improvement Engineer Relationship Specialty Start Date End Date Froylan Louise MD PCP - General Family Practice 02/22/14 Froylan Louise MD Assigned PCP 03/13/14 2 documented as of this encounter
--- OUTSIDE RECORDS SUMMARY | 2022-05-15 22:24 | XMS_ITS | Encounter Summary ---
:1955 Author Organization [facility] Address [address] [place] [address] Care Team Providers Name Role Phone Froylan Louise MD Primary Care Provider Unavailable Froylan Louise MD Unavailable Unavailable Encounter Details Date Type Department Care Team Description 07/18/2020 Telephone [facility] Froylan Louise Ra, MD [place] [address] [place] [address] Social History Tobacco Use [...] containing 4 or more times a w [place] 05/25/2021 alcohol? How many drinks containing alcohol [...] you attend buddhist or Patient refused 2020 restorationist services? Do [...] with No / Unsure 07/18/2020 3:08 PM LOADING MANAGER someone who was confirmed or suspected to have Coronavirus / COVID-19? documented as of this encounter Miscellaneous Notes Telephone Encounter - Esthela Corea RN - 07/19/2020 11:40 AM CST Pt is working with his daughter who is bi developer working on diet and exercise. He has stopped drinking and has dropped 4 lbs already. Appt scheduled for 4 weeks out. Esthela Corea RN ING MANAGER Telephone Encounter - Froylan Louise MD - 07/19/2020 8:07 AM CST Increase hydrochlorothiazide to 25 mg daily and recheck in 1 month with MA blood pressure check. Canrefill at higher dose pill. ING MANAGER Telephone Encounter - Homa Gracia - 07/18/2020 4:38 PM CST Virgil Christine is a 64 [...] 136/74 05/05/19 130/80 01/09/19 134/78 KENYATTA Villaseñor ING MANAGER documented in this encounter Plan of Treatment Upcoming Encounters Date Type Specialty Care Team Description 05/20/2022 Lab Lab documented as of this encounter Visit Diagnoses Not on filedocumented in this encounter Care Teams Adjunct Instructor Chemistry Relationship Specialty Start Date End Date Froylan Louise MD PCP - General Family Practice 02/22/14 Froylan Louise MD Assigned PCP 03/13/14 2 documented as of this encounter
--- OUTSIDE RECORDS SUMMARY | 2022-05-15 22:24 | XMS_ITS | Encounter Summary ---
:1955 Author Organization [facility] Address [address] [place] [address] Care Team Providers Name Role Phone Froylan Louise MD Primary Care Provider Unavailable Froylan Louise MD Unavailable Unavailable Reason for Visit Reason Comments Medication Refill Encounter Details Date Type Department Care Team Description 06/13/2020 Refill [facility] Froylan Louise Ra, MD Medication Refill [address] [address] Social History Tobacco Use [...] containing 4 or more times a w [place] 05/25/2021 alcohol? How many drinks containing alcohol [...] you attend taoism or Patient refused 2020 christianity services? Do you belong to any clubs [...] with No / Unsure 06/09/2020 3:26 PM DIRECTOR OF OUTPATIENT SERVICES someone who was confirmed or suspected to have Coronavirus / COVID-19? documented as of this encounter Miscellaneous Notes Telephone Encounter - Wendi Lindsay RN - 06/13/2020 10:29 AM CST Routing refill request to provider for review/approval because: Drug not on the [facility] refill protocol Wendi Lindsay RN, BSN CTOR OF OUTPATIENT SERVICES documented in this encounter Plan of Treatment Upcoming Encounters Date Type Specialty Care Team Description 05/20/2022 Lab Lab documented as of this encounter Visit Diagnoses Diagnosis H/O ulcerative colitis Personal history of other diseases of di gestive system documented in this encounter Care Teams Precision Assembler Relationship Specialty Start Date End Date Froylan Louise MD PCP - General Family Practice 02/22/14 Froylan Louise MD Assigned PCP 03/13/14 2 documented as of this encounter
--- OUTSIDE RECORDS SUMMARY | 2022-05-15 22:24 | XMS_ITS | Encounter Summary ---
:1955 Author Organization [facility] Address [address] [place] [address] Care Team Providers Name Role Phone Froylan Louise MD Primary Care Provider Unavailable Froylan Louise MD Unavailable Unavailable Reason for Visit Reason Comments Allied Health Visit Encounter Details Date Type Department Care Team Description 09/01/2020 Allied Health/Nurse Health [facility] Allied Health Visit Visit [address] [address] Social History Tobacco Use [...] containing 4 or more times a w [place] 05/25/2021 alcohol? How many drinks containing alcohol [...] you attend confucianism or Patient refused 2020 anabaptism services? Do [...] with No / Unsure 09/01/2020 2:58 PM GROCERY CHECKER someone who was confirmed or suspected to have Coronavirus / COVID-19? documented as of this encounter Last Filed Vital Signs Vital Sign Reading Time Taken Comments Blood Pressure 138/84 09/01/2020 3:22 PM GROCERY CHECKER Pulse 95 09/01/2020 3:22 PM GROCERY CHECKER Temperature - - Respiratory Rate 16 09/01/2020 3:22 PM GROCERY CHECKER Oxygen Saturation 97% 09/01/2020 3:22 PM GROCERY CHECKER Inhaled Oxygen Concentration - - Weight - - Height - - Body Mass Index - - documented in this encounter Plan of Treatment Upcoming Encounters Date Type Specialty Care Team Description 05/20/2022 Lab Lab documented as of this encounter Visit Diagnoses Diagnosis BP check - Primary Screening for hypertension documented in this encounter Care Teams Package Pick Up Relationship Specialty Start Date End Date Froylan Louise MD PCP - General Family Practice 02/22/14 Froylan Louise MD Assigned PCP 03/13/14 2 documented as of this encounter
--- OUTSIDE RECORDS SUMMARY | 2022-05-15 22:24 | XMS_ITS | Encounter Summary ---
:1955 Author Organization [facility] Address [address] [place] [address] Care Team Providers Name Role Phone Froylan Louise MD Primary Care Provider Unavailable Froylan Louise MD Unavailable Unavailable Reason for Visit Reason Onset Date Comments Refill Request 07/04/2020 Fluticasone-Umeclidi n-Vilanterol ([facility] ELLIPTA) 100-62.5-25 MCG/INH oral inhaler Encounter Details Date Type Department Care Team Description 07/04/2020 Refill [facility] Froylan Louise Ra y, Refill Request Chhaya VILLASEÑOR ([id number] [id number] [facility] ilanterol ([facility] [place] [address] ELLIPTA) 100-62.5-25 MCG/INH oral in haler) Social History Tobacco Use Types Packs/Day Years [...] or more times a w [place] 05/25/2021 alcohol? How many drinks containing alcohol [...] you attend jainism or Patient refused 2020 mormon services? Do [...] with No / Unsure 06/09/2020 3:26 PM MOLD REPAIR TECHNICIAN someone who was confirmed or suspected to have Coronavirus / COVID-19? documented as of this encounter Miscellaneous Notes Telephone Encounter - Wendi Lindsay RN - 07/04/2020 1:00 PM CST Should have refills on file E-Prescribing Status: Receipt confirmed by pharmacy (05/26/2020 ??4:23 PM MOLD REPAIR TECHNICIAN) REPAIR TECHNICIAN Telephone Encounter - Cheryl Garrett - 07/04/2020 10:15 AM CST Last Written Prescription Date: 05/26/20 Last Fill Quantity: 1, # refills: 11 Last office visit: 05/26/2020 with prescribing provider: Dr Louise Future Office Visit: Next 5 appointments (look out 90 days) Jul 13, 2020 4:00 PM (Arrive by 3:55 PM) [place] Visit with DES JOHNSON/MARGAUX [facility] [address] [place] [phone] REPAIR TECHNICIAN documented in this encounter Plan of Treatment Upcoming Encounters Date Type Specialty Care Team Description 05/20/2022 Lab Lab documented as of this encounter Visit Diagnoses Diagnosis Moderate persistent asthma without compl ication Unspecified asthma documented in this encounter Care Teams Hairspring Fabrication Supervisor Relationship Specialty Start Date End Date Froylan Louise MD PCP - General Family Practice 02/22/14 Froylan Louise MD Assigned PCP 03/13/14 2 documented as of this encounter
--- OUTSIDE RECORDS SUMMARY | 2022-05-15 22:25 | XMS_ITS | Encounter Summary ---
:1955 Author Organization [facility] Address [address] [place] [address] Care Team Providers Name Role Phone Froylan Louise MD Primary Care Provider Unavailable Froylan Louise MD Unavailable Unavailable Encounter Details Date Type Department Care Team Description 02/15/2020 Travel Social History Tobacco Use Types Packs/Day Years Used Date Smoking Tobacco: Former Cigarettes 2 25 Quit : 08/04/2006 Smokeless Tobacco: Never Comments: 2004 Alcohol Use Standard Drinks/Week Comments Yes 0 (1 standard drink = 0.6 oz pure alcoho l) 4 BEERS A WEEK Alcohol Habits Answer Date Recorded How often do you have a drink containing 4 or more times a w [place] 05/25/2021 alcohol? How many drinks containing [...] you attend mandaen or Patient refused 2020 sabianist services? Do [...] been in contact with No / Unsure 02/15/2020 3:38 PM CDT someone who was confirmed or suspected to have Coronavirus / COVID-19? documented as of this encounter Plan of Treatment Upcoming Encounters Date Type Specialty Care Team Description 05/20/2022 Lab Lab documented as of this encounter Visit Diagnoses Not on filedocumented in this encounter Care Teams Family Counselor Relationship Specialty Start Date End Date Froylan Louise MD PCP - General Family Practice 02/22/14 Froylan Louise MD Assigned PCP 03/13/14 2 documented as of this encounter
--- OUTSIDE RECORDS SUMMARY | 2022-05-15 22:25 | XMS_ITS | Encounter Summary ---
:1955 Author Organization [facility] Address [address] [place] [address] Care Team Providers Name Role Phone Froylan Louise MD Primary Care Provider Unavailable Froylan Louise MD Unavailable Unavailable Encounter Details Date Type Department Care Team Description 05/26/2020 Travel Social History Tobacco Use Types Packs/Day [...] or more times a w [place] 05/25/2021 alcohol? How many drinks containing [...] you attend baptist or Patient refused 2020 restorationism services? Do you belong to any clubs [...] been in contact with No / Unsure 05/26/2020 3:06 PM AUTOMATIC MACHINES SUPERVISOR someone who was confirmed or suspected to have Coronavirus / COVID-19? documented as of this encounter Plan of Treatment Upcoming Encounters Date Type Specialty Care Team Description 05/20/2022 Lab Lab documented as of this encounter Visit Diagnoses Not on filedocumented in this encounter Care Teams Beef Cattle Specialist Relationship Specialty Start Date End Date Froylan Louise MD PCP - General Family Practice 02/22/14 Froylan Louise MD Assigned PCP 03/13/14 2 documented as of this encounter
--- OUTSIDE RECORDS SUMMARY | 2022-05-15 22:25 | XMS_ITS | Encounter Summary ---
:1955 Author Organization [facility] Address [address] [place] [address] Care Team Providers Name Role Phone Froylan Louise MD Primary Care Provider Unavailable Froylan Louise MD Unavailable Unavailable Reason for Visit Reason Onset Date Comments Results 05/31/2020 needs results sent t o another physician Encounter Details Date Type Department Care Team Description 05/31/2020 Telephone [facility] Froylan Louise Resu lts (needs results Clinic Chhaya VILLASEÑOR sent to another [address] [place] [address] physician) [place] [address] Social History Tobacco Use Types [...] 4 or more times a w [place] 05/25/2021 alcohol? How many drinks containing alcohol [...] you attend muslim or Patient refused 2020 orthodox services? Do you belong to any [...] with No / Unsure 05/26/2020 3:06 PM HAT FORMER someone who was confirmed or suspected to have Coronavirus / COVID-19? documented as of this encounter Miscellaneous Notes Telephone Encounter - Carolin Dawson - 05/31/2020 2:08 PM CST Called patient he is at Dr. Shelton office at [facility] requesting for lab results to be faxed to [phone]. Since we placed a referral I faxed the results. Carolin Dawson Telecom Billing Analyst FORMER Telephone Encounter - Sofia Rojas - 05/31/2020 1:59 PM CST Test Results Who is calling?: Virgil Who ordered the test: Dani Type of test: Lab Date of test: 05/26/20 Where was the test performed: [facility] What are your questions/concerns?: Pt would like them sent to another physician, please call pt for information Okay to leave a detailed message?: Yes FORMER documented in this encounter Plan of Treatment Upcoming Encounters Date Type Specialty Care Team Description 05/20/2022 Lab Lab documented as of this encounter Visit Diagnoses Not on filedocumented in this encounter Care Teams Mercerizer Relationship Specialty Start Date End Date Froylan Louise MD PCP - General Family Practice 02/22/14 Froylan Louise MD Assigned PCP 03/13/14 2 documented as of this encounter
--- OUTSIDE RECORDS SUMMARY | 2022-05-15 22:25 | XMS_ITS | Encounter Summary ---
:1955 Author Organization [place] Address [address] [place] [address] Care Team Providers Name Role Phone Froylan Louise MD Primary Care Provider Unavailable Froylan Louise MD Unavailable Unavailable Reason for Visit Reason Comments Medication Refill Encounter Details Date Type Department Care Team Description 01/23/2020 Refill [facility] Froylan Louise Ra, MD Medication Refill [address] [address] Social History Tobacco Use [...] containing 4 or more times a w [place] 05/25/2021 alcohol? How many drinks containing alcohol [...] attend oriental orthodox or Patient refused 2020 mosque services? Do [...] been in contact with No / Unsure 01/18/2020 3:31 PM CDT someone who was confirmed or suspected to have Coronavirus / COVID-19? documented as of this encounter Miscellaneous Notes Telephone Encounter - Beckie Edgar RN - 01/24/2020 9:22 AM CDT Warfarin 5 mg Current Dosing Instructions: 5 mg W and 7.5 mg ROW Tabs: 135 Refills: 0 Last INR: 01/17 Next INR due: 02/14 Last OV with responsible provider: 05/31/19 documented in this encounter Plan of Treatment Upcoming Encounters Date Type Specialty Care Team Description 05/20/2022 Lab Lab documented as of this encounter Visit Diagnoses Diagnosis Acute deep vein thrombosis (DVT) of prox imal vein of both lower extremities (H) documented in this encounter Care Teams Hose Wrapper Relationship Specialty Start Date End Date Froylan Louise MD PCP - General Family Practice 02/22/14 Froylan Louise MD Assigned PCP 03/13/14 2 documented as of this encounter
--- OUTSIDE RECORDS SUMMARY | 2022-05-15 22:25 | XMS_ITS | Encounter Summary ---
:1955 Author Organization [place] Address [address] [place] [address] Care Team Providers Name Role Phone Froylan Louise MD Primary Care Provider Unavailable Froylan Louise MD Unavailable Unavailable Reason for Visit Reason Onset Date Comments Pt. Information/instruction 05/31/2020 Encounter Details Date Type Department Care Team Description 05/31/2020 Telephone [facility] Froylan Louise, Pt. Clinic Chhaya VILLASEÑOR Information/instruction [address] [facility] () [place] [address] Social History Tobacco Use Types [...] containing 4 or more times a w [place] 05/25/2021 alcohol? How many drinks containing alcohol [...] with No / Unsure 05/26/2020 3:06 PM TRANSFER TABLE OPERATOR someone who was confirmed or suspected to have Coronavirus / COVID-19? documented as of this encounter Miscellaneous Notes Telephone Encounter - Yudith Mejia RN - 05/31/2020 2:32 PM CST Pt calls, told to call PCP with BP reading today at Dr Shelton's office, improved, 140/80, only wants FYI sent Yudith Mejia RN, BSN Message handled by CLINIC NURSE. SFER TABLE OPERATOR documented in this encounter Plan of Treatment Upcoming Encounters Date Type Specialty Care Team Description 05/20/2022 Lab Lab documented as of this encounter Visit Diagnoses Not on filedocumented in this encounter Care Teams Mediation Commissioner Relationship Specialty Start Date End Date Froylan Louise MD PCP - General Family Practice 02/22/14 Froylan Louise MD Assigned PCP 03/13/14 2 documented as of this encounter
--- OUTSIDE RECORDS SUMMARY | 2022-05-15 22:25 | XMS_ITS | Encounter Summary ---
:1955 Author Organization [place] Address [address] [place] [address] Care Team Providers Name Role Phone Froylan Louise MD Primary Care Provider Unavailable Froylan Louise MD Unavailable Unavailable Encounter Details Date Type Department Care Team Description 02/15/2020 Anticoagulation Therapy [facility], Chronic deep vein thrombosis (DVT) of lower extremity, unspecified laterality, unspecified vein (H); Visit Clinic Jonah Conrad RN [facility] current use of ant icoagulant therapy [id number] [place] [address] Social History Tobacco Use Types Packs/Day Years [...] you attend anglican or Patient refused 2020 temple services? Do [...] encounter Progress Notes Diana Nielsen RN - 02/15/2020 4:34 PM CDT ANTICOAGULATION FOLLOW-UP CLINIC VISIT Patient Name: Virgil Christine Date: 02/15/2020 Contact Type: Telephone SUBJECTIVE: Patient Findings Comments: Called patient to discuss today's INR results: The patient was assessed for diet, medication, and activity level changes, missed or extra doses, bruising or bleeding, with no problem findings. Patient is continues on prednisone (has been on for about 1 month now), taking 10 mg twice daily. He is waiting for Humira approval, has been denied 3x but Patch Finisher is continuing appeal process. He states he doesn't always take every dose but his symptoms are controlled. Added to med list as patient reported drug. Reviewed maintenance warfarin dosing with patient. Patient will remain on the same dose until next INR check. No other questions or concerns. Scheduled next lab-only INR in six weeks. Diana Garcia RN [facility] Clinical Outcomes Negatives: Major bleeding event, Thromboembolic event, Anticoagulation-related hospital admission, Anticoagulation-related ED visit, Anticoagulation-related fatality Comments: Called patient to discuss today's INR results: The patient was assessed for diet, medication, and activity level changes, missed or extra doses, bruising or bleeding, with no problem findings. Patient is continues on prednisone (has been on for about 1 month now), taking 10 mg twice daily. He is waiting for Humira approval, has been denied 3x but Patch Finisher is continuing appeal process. He states he doesn't always take every dose but his symptoms are controlled. Added to med list as patient reported drug. Reviewed maintenance warfarin dosing with patient. Patient will remain on the same dose until next INR check. No other questions or concerns. Scheduled next lab-only INR in six weeks. Diana Garcia RN [facility] OBJECTIVE Recent labs: (last 7 days) 02/15/20 1549 INR 2.70* ASSESSMENT / PLAN INR assessment THER Recheck INR In: 6 WEEKS INR Location Clinic Anticoagulation Summary As of 02/15/2020 INR goal: 2.0-3.0 TTR: 72.0 % (1 y) INR used for dosin.70 (02/15/2020) Warfarin maintenance plan: 5 mg (5 mg x 1) every Wed; 7.5 mg (7.5 mg x 1) all other days Full warfarin instructions: 5 mg every Wed; 7.5 mg all other days Weekly warfarin total: 50 mg No change documented: Diana Nielsen RN Plan last modified: Hilda Burch RN (05/14/2019) Next INR check: 03/31/2020 Priority: Maintenance Target end date: 09/30/2020 Indications Chronic deep vein thrombosis (DVT) of lower extremity unspecified laterality unspecified vein (H) [I82.509] Long-term (current) use of anticoagulants [Z79.01] [Z79.01] Anticoagulation Episode Summary INR check location: Preferred lab: Send INR reminders to: [facility] Comments: Anticoagulation Care Providers Provider Role Specialty Phone number Froylan Louise MD Referring Family Practice [phone] See the Encounter Report to view Anticoagulation [...] wer extremity, unspecified laterality, unspecified vein (H) 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
--- OUTSIDE RECORDS SUMMARY | 2022-05-15 22:25 | XMS_ITS | Encounter Summary ---
:1955 Author Organization [place] Address [address] [place] [address] Care Team Providers Name Role Phone Froylan Louise MD Primary Care Provider Unavailable Froylan Louise MD Unavailable Unavailable Encounter Details Date Type Department Care Team Description 06/09/2020 Travel Social History Tobacco Use Types Packs/Day Years Used Date Smoking Tobacco: Former Cigarettes 2 25 Quit : 08/04/2006 Smokeless Tobacco: Never Comments: 2004 Alcohol Use Standard Drinks/Week Comments Yes 0 (1 standard drink = 0.6 oz pure alcoho l) 4 BEERS A WEEK Alcohol Habits Answer Date Recorded How often do you have a drink containing 4 or more times a w [place] 05/25/2021 alcohol? How many drinks containing alcohol [...] you attend baptist or Patient refused 2020 orthodoxy services? Do [...] with No / Unsure 06/09/2020 3:26 PM HARNESS BRUSHER someone who was confirmed or suspected to have Coronavirus / COVID-19? documented as of this encounter Plan of Treatment Upcoming Encounters Date Type Specialty Care Team Description 05/20/2022 Lab Lab documented as of this encounter Visit Diagnoses Not on filedocumented in this encounter Care Teams District Recruiter Relationship Specialty Start Date End Date Froylan Louise MD PCP - General Family Practice 02/22/14 Froylan Louise MD Assigned PCP 03/13/14 2 documented as of this encounter
--- OUTSIDE RECORDS SUMMARY | 2022-05-15 22:25 | XMS_ITS | Encounter Summary ---
:1955 Author Organization [place] Address [facility] [place] [address] Care Team Providers Name Role Phone Froylan Louise MD Primary Care Provider Unavailable Froylan Louise MD Unavailable Unavailable Encounter Details Date Type Department Care Team Description 01/18/2020 Anticoagulation Therapy [facility] Audrey Louise Chronic deep vein thrombosis (DVT) of lower extremity, unspecified laterality, unspecified vein (H); Visit Clinic Erick Dubose MD custodial current use of ant icoagulant therapy [address] [place] [address] Social History Tobacco Use Types [...] containing 4 or more times a w [place] 05/25/2021 alcohol? How many drinks containing alcohol [...] you attend congregation or Patient refused 2020 bahai services? Do you belong to any clubs [...] documented as of this encounter Progress Notes Miley Crawford, RN - 01/18/2020 5:46 PM CDT ANTICOAGULATION MANAGEMENT Patient Name: Virgil Christine Date: 01/18/2020 ASSESSMENT /SUBJECTIVE: Today's INR result of 2.6 is therapeutic. Goal INR of 2.0-3.0 ??? Warfarin dose taken: Warfarin taken as previously instructed ??? Diet: No new diet changes affecting INR ??? Medication changes/ interactions: No new medications/supplements affecting INR ??? Previous INR: Supratherapeutic ??? S/S of bleeding or thromboembolism: No ??? New injury or illness: No ??? Upcoming surgery, procedure or cardioversion: No ??? Additional findings: may be starting Humira; will update when knows start date PLAN: Spoke with Virgil regarding INR result and instructed: Warfarin Dosing Instructions: Continue your current warfarin dose 5 mg W; 7.5 mg ROW Instructed patient to follow up no later than: 4 weeks Lab visit scheduled Education provided: None required Virgil verbalizes understanding and agrees to warfarin dosing plan. Instructed to call the Anticoagulation Clinic for any changes, questions or concerns. (#[phone]) Valerie Hays, RN OBJECTIVE: Recent labs: (last 7 days) 01/18/20 1533 INR 2.60* No question data found. Anticoagulation Summary As of 01/18/2020 INR goal: 2.0-3.0 TTR: 67.5 % (1 y) INR used for dosin.60 (01/18/2020) Warfarin maintenance plan: 5 mg (5 mg x 1) every Wed; 7.5 mg (7.5 mg x 1) all other days Full warfarin instructions: 5 mg every Wed; 7.5 mg all other days Weekly warfarin total: 50 mg Plan last modified: Hilda Burch, RN (05/14/2019) Next INR check: 02/15/2020 Priority: High Target end date: 09/30/2020 Indications Chronic deep vein thrombosis (DVT) of lower extremity unspecified laterality unspecified vein (H) [I82.509] Long-term (current) use of anticoagulants [Z79.01] [Z79.01] Anticoagulation Episode Summary INR check location: Preferred lab: Send INR reminders to: [facility] Comments: Anticoagulation Care Providers Provider Role Specialty Phone number Froylan Louise MD [facility] [phone] documented in this encounter Plan of Treatment Upcoming Encounters Date Type Specialty Care Team Description 05/20/2022 Lab Lab documented as of this encounter Visit Diagnoses Diagnosis Chronic deep vein thrombosis (DVT) of lo wer extremity, unspecified laterality, unspecified vein (H) custodial current use of anticoagulant t herapy documented in this encounter Care Teams Ski Lift Operator Relationship Specialty Start Date End Date Froylan Louise MD PCP - General Family Practice 02/22/14 Froylan Louise MD Assigned PCP 03/13/14 2 documented as of this encounter
--- OUTSIDE RECORDS SUMMARY | 2022-05-15 22:25 | XMS_ITS | Encounter Summary ---
:1955 Author Organization [place] Address [address] [place] [address] Care Team Providers Name Role Phone Froylan Louise MD Primary Care Provider Unavailable Froylan Louise MD Unavailable Unavailable Encounter Details Date Type Department Care Team Description 04/03/2020 Travel Social History Tobacco Use Types Packs/Day Years Used Date Smoking Tobacco: Former Cigarettes 2 25 Quit : 08/04/2006 Smokeless Tobacco: Never Comments: 2004 Alcohol Use Standard Drinks/Week Comments Yes 0 (1 standard drink = 0.6 oz pure alcoho l) 4 BEERS A WEEK Alcohol Habits Answer Date Recorded How often do you have a drink containing 4 or more times a w [place] 05/25/2021 alcohol? How many drinks containing alcohol [...] you attend bahai or Patient refused 2020 congregation services? Do [...] been in contact with No / Unsure 04/03/2020 10:17 AM CDT someone who was confirmed or suspected to have Coronavirus / COVID-19? documented as of this encounter Plan of Treatment Upcoming Encounters Date Type Specialty Care Team Description 05/20/2022 Lab Lab documented as of this encounter Visit Diagnoses Not on filedocumented in this encounter Care Teams Welder Metal Fab Relationship Specialty Start Date End Date Froylan Louise MD PCP - General Family Practice 02/22/14 Froylan Louise MD Assigned PCP 03/13/14 2 documented as of this encounter
--- OUTSIDE RECORDS SUMMARY | 2022-05-15 22:25 | XMS_ITS | Encounter Summary ---
:1955 Author Organization [place] Address [address] [place] [address] Care Team Providers Name Role Phone Froylan Louise MD Primary Care Provider Unavailable Froylan Louise MD Unavailable Unavailable Encounter Details Date Type Department Care Team Description 05/26/2020 Anticoagulation Therapy [facility] Audrey Louise Chronic deep vein thrombosis (DVT) of lower extremity, unspecified laterality, unspecified vein (H); Visit Clinic Chhaya Dubose MD salvage determiner current use of ant icoagulant therapy [address] [place] [address] Social History Tobacco Use Types [...] or relatives? How often do you attend shinto or Patient refused 2020 faith services? Do you belong to any clubs or Yes 05/25/2021 organizations such as shinto groups, unions, fraternal or athletic groups, or [...] with No / Unsure 05/26/2020 3:06 PM RV TECHNICIAN someone who was confirmed or suspected to have Coronavirus / COVID-19? documented as of this encounter Progress Notes Stevo Thorne RN - 05/26/2020 5:29 PM CST Images from the original note were not included. ANTICOAGULATION FOLLOW-UP CLINIC VISIT Patient Name: Virgil Christine Date: 05/26/2020 Contact Type: Telephone/ Virgil SUBJECTIVE: Patient Findings Positives: Change in alcohol use Comments: Patient had increased alcohol these past few days Clinical Outcomes Negatives: Major bleeding event, Thromboembolic event, Anticoagulation-related hospital admission, Anticoagulation-related ED visit, Anticoagulation-related fatality Comments: Patient had increased alcohol these past few days OBJECTIVE Recent labs: (last 7 days) 05/26/20 1650 INR 3.50* ASSESSMENT / PLAN INR assessment [place]A Recheck INR In: 2 WEEKS INR Location Clinic Anticoagulation Summary As of 05/26/2020 INR goal: 2.0-3.0 TTR: 75.9 % (1 y) INR used for dosin.50 (05/26/2020) Warfarin maintenance plan: 5 mg (5 mg x 1) every Wed; 7.5 mg (7.5 mg x 1) all other days Full warfarin instructions: 05/26: 3.75 mg; Otherwise 5 mg every Wed; 7.5 mg all other days Weekly warfarin total: 50 mg Plan last modified: Hilda Burch RN (05/14/2019) Next INR check: 06/09/2020 Priority: Maintenance Target end date: 09/30/2020 Indications Chronic deep vein thrombosis (DVT) of lower extremity unspecified laterality unspecified vein (H) [I82.509] Long-term (current) use of anticoagulants [Z79.01] [Z79.01] Anticoagulation Episode Summary INR check location: Preferred lab: Send INR reminders to: [facility] Comments: Anticoagulation Care Providers Provider Role Specialty Phone number Froylan Louise MD Referring Family Medicine [phone] See the Encounter Report to view Anticoagulation Flowsheet and Dosing Calendar (Go to Encounters tabin chart review, and find the Anticoagulation Therapy Visit) Patient INR is supra therapeutic today. Patient will adjust dosing today by taking 3.75 mg and then resume maintenance dosing of 50 mg and follow up in 2 weeks or sooner if there are any concerns or problems. Signs of bleeding and when appropriate to seek care for symptoms reviewed. Adjustment Rational: Dosage adjustment made based on physician directed care plan. Stevo Thorne RN TECHNICIAN documented in this encounter Plan of Treatment Upcoming Encounters Date Type Specialty Care Team Description 05/20/2022 Lab Lab documented as of this encounter Visit Diagnoses Diagnosis Chronic deep vein thrombosis (DVT) of lo wer extremity, unspecified laterality, unspecified vein (H) salvage determiner current use of anticoagulant t herapy documented in this encounter Care Teams Can Technician Relationship Specialty Start Date End Date Froylan Louise MD PCP - General Family Practice 02/22/14 Froylan Louise MD Assigned PCP 03/13/14 2 documented as of this encounter
--- OUTSIDE RECORDS SUMMARY | 2022-05-15 22:25 | XMS_ITS | Encounter Summary ---
:1955 Author Organization [place] Address [address] [place] [address] Care Team Providers Name Role Phone Froylan Louise MD Primary Care Provider Unavailable Froylan Louise MD Unavailable Unavailable Encounter Details Date Type Department Care Team Description 04/03/2020 Orders Only [facility] Per killian history of DVT [facility] (deep vein thrombosis) [address] [place] [address] Social History Tobacco Use [...] 4 or more times a w [place] 05/25/2021 alcohol? How many drinks containing alcohol [...] you attend yazidi or Patient refused 2020 sikh services? Do [...] Date/Time Associated Comments Diagnosis CAPILLARY BLOOD Routine 04/03/2020 10:19 AM Personal history o f Results for this COLLECTION CDT DVT (deep vein procedure are in thrombosis) the results section. INR Routine 04/03/2020 10:19 AM Personal history of R esults for this CDT DVT (deep vein procedure are in thrombosis) the results section. documented in this encounter Results Capillary Blood Collection (04/03/2020 10:19 AM CDT) [facility] gist Method Time Signature Capillary Capillary 04/03/2020 D HANIS Blood collection 10:21 AM CDT CLINICS Collection performed [place] Specimen Anatomical Collection Method Collection Time Receive d Time (Source) Location / / Volume Laterality 04/03/2020 10:19 04/03/2020 AM CDT 10:21 AM CDT Froylan Louise MD LAB - LAB COMMUNICATION Performing Organization Address City/[facility]/ZIP Code Phon e Number [facility] [address] [place] [address] (ABNORMAL) INR (04/03/2020 10:19 AM CDT) P athologist Signature INR 2.30 (H) 0.86 - 1.14 04/03/2020 D HANIS 10:35 AM CDT [facility] Comment: This test is intended for monitoring Cou madin therapy. ??Results are not accurate in patients with prolonged INR due to factor deficiency. Specimen Anatomical Collection Method Collection Time Receive d Time (Source) Location / / Volume Laterality Blood specimen 04/03/2020 10:19 0 (specimen) AM CDT 10:21 AM CDT Froylan Louise MD LAB - BLOOD ORDERABLES Performing Organization Address City/[facility]/ZIP Code Phon e Number [facility] [address] [address] [facility] [place] [address] documented in this encounter Visit Diagnoses Diagnosis Personal history of DVT (deep vein throm bosis) Personal history of venous thrombosis an d embolism documented in this encounter Care Teams Legal Counsel Relationship Specialty Start Date End Date Froylan Louise MD PCP - General Family Practice 02/22/14 Froylan Louise MD Assigned PCP 03/13/14 2 documented as of this encounter
--- OUTSIDE RECORDS SUMMARY | 2022-05-15 22:25 | XMS_ITS | Encounter Summary ---
:1955 Author Organization [facility] Address [address] [place] [address]. [place] [address] Care Team Providers Name Role Phone Froylan Louise MD Primary Care Provider Unavailable Froylan Louise MD Unavailable Unavailable Reason for Referral (Routine) - Closed Specialty Diagnoses / Procedures Referred By Contact Refer red To Contact Procedures Froylan Louise MD PPSV23, IM/SUBQ (2+ YRS) - [id number] [place] [address] Referral ID Status Reason Start Date Expiration Date Visits Requ ested Visits Authorized [id number] Closed 05/26/2020 05/26/2021 1 1 INSPECTOR Diagnostic Imaging XR (Routine) - Closed Specialty Diagnoses / Procedures Referred By Contact Refer red To Contact Diagnoses Irregular heartbeat Froylan Louise MD Procedures XR Chest [id number] [place] [address] Referral ID Status Reason Start Date Expiration Date Visits Requ ested Visits Authorized [id number] Closed 05/26/2020 05/26/2021 1 1 INSPECTOR Consultation (Routine) - Closed Specialty Diagnoses / Procedures Referred By Contact Refer red To Contact Diagnoses Irregular heartbeat Froylan Louise MD [facility] [id number] [place] [address] [place] [address] Phone: Referral ID Status Reason Start Date Expiration Date Visits Requ ested Visits Authorized [id number] Closed 05/26/2020 05/26/2021 1 1 INSPECTOR Reason for Visit Reason Comments Physical Encounter Details Date Type Department Care Team Description 05/26/2020 Office Visit [facility] Froylan Louise g eneral medical examination at a health care facility (Primary Dx); Clinic Chhaya Dubose MD Irregular heartbeat; [id number] Varicose veins of right lowe r extremity with both ulcer of ankle and inflammation (CODE) (H); [place], [place] Other ulcerati ve colitis without complication (H); [id number] Screening for prostate cance r; [phone] Chronic deep ve in thrombosis (DVT) of lower extremity, unspecified laterality, unspecified vein (H); S/P colectomy; Moderate persis tent asthma without complication; Benign prostati c hyperplasia with weak urinary stream; SOB (shortness of breath) Social History Tobacco Use Types Packs/Day Years Used Date Smoking Tobacco: Former Cigarettes 2 25 Quit : 08/04/2006 Smokeless Tobacco: Never Comments: 2004 Alcohol Use Standard Drinks/Week Comments Yes 0 (1 standard drink = 0.6 oz pure alcoho l) 4 BEERS A WEEK Alcohol Habits Answer Date Recorded How often do you have a drink containing 4 or more times a w [place] 05/25/2021 alcohol? How many drinks containing alcohol [...] you attend evangelical or Patient refused 2020 muslim services? Do [...] with No / Unsure 05/26/2020 3:06 PM COKE INSPECTOR someone who was confirmed or suspected to have Coronavirus / COVID-19? documented as of this encounter Last Filed Vital Signs Vital Sign Reading Time Taken Comments Blood Pressure 152/83 05/26/2020 3:29 PM COKE INSPECTOR Pulse 101 05/26/2020 3:29 PM COKE INSPECTOR Temperature 36.4 ??C (97.6 ??F) 05/26/2020 3:29 PM COKE INSPECTOR Respiratory Rate - - Oxygen Saturation 97% 05/26/2020 3:29 PM COKE INSPECTOR Inhaled Oxygen Concentration - - Weight 108 kg (238 lb) 05/26/2020 3:29 PM COKE INSPECTOR Height 179.1 cm (5' 10.5) 05/26/2020 3:29 PM COKE INSPECTOR Body Mass Index 33.67 05/26/2020 3:29 PM COKE INSPECTOR documented in this encounter Patient Instructions Patient InstructionsRabia Mobley CMA - 05/26/2020 3:30 PM CST Preventive Health Recommendations Male Ages 50 - 64 Yearly exam: ?? See your health care provider every year in order to o Review health changes. o Discuss preventive care. o Review your medicines if your doctor has prescribed any. ??? Have a cholesterol test every 5 years, or more frequently if you are at risk for high cholesterol/heart disease. ??? Have a diabetes test (fasting glucose) every three years. If you are at risk for diabetes, you should have this test more often. ??? Have a colonoscopy at age 50, or have a yearly FIT test (stool test). These exams will check forcolon cancer. ??? Talk with your health care provider about whether or not a prostate cancer screening test (PSA) is right for you. ??? You should be tested each year for STDs (sexually transmitted diseases), if you???re at risk. Shots: Get a flu shot each year. Get a tetanus shot every 10 years. Nutrition: ??? Eat at least 5 servings of fruits and vegetables daily. ??? Eat whole-grain bread, whole-wheat pasta and brown rice instead of white grains and rice. ??? Get adequate Calcium and Vitamin D. Lifestyle ??? Exercise for at least 150 minutes a week (30 minutes a day, 5 days a week). This will help you control your weight and prevent disease. ??? Limit alcohol to one drink per day. ??? No smoking. ??? Wear sunscreen to prevent skin cancer. ??? See your dentist every six months for an exam and cleaning. ??? See your eye doctor every 1 to 2 years. INSPECTOR documented in this encounter Progress Notes Nahomy, Esthela Conrad RN - 05/26/2020 3:30 PM CST Pre-Visit Planning Next 5 appointments (look out 90 days) May 26, 2020 3:30 PM (Arrive by 3:10 PM) Office Visit with Froylan Louise MD [facility] ([facility] [id number] [facility] [id number] Appointment Notes for this encounter: reviewed JQ // Med check. Per pt this was to be PX and labs Questionnaires Reviewed/Assigned Additional questionnaires assigned PHQ2 and ACT Spoke to patient via phone. Are there any additional questions or concerns you'd like to review withyour provider during your visit? No Patient does not have additional questions or concerns. Visit is preventive. Reviewed purpose of preventive visit with patient. Meds Is there anything on your medication list that needs to be updated? Yes: No longer on Prednisone, Current Outpatient Medications Medication ??? Acetaminophen (TYLENOL 8 HOUR PO) ??? albuterol (PROAIR HFA/PROVENTIL HFA/VENTOLIN HFA) 108 (90 Base) MCG/ACT inhaler ??? cyclobenzaprine (FLEXERIL) 10 MG tablet ??? ipratropium (ATROVENT HFA) 17 MCG/ACT inhaler ??? loperamide (IMODIUM) 2 MG capsule ??? multivitamin w/minerals (MULTI-VITAMIN) tablet ??? predniSONE (DELTASONE) 10 MG tablet ??? QVAR REDIHALER 80 MCG/ACT inhaler ??? sildenafil (VIAGRA) 50 MG tablet ??? SYMBICORT 160-4.5 MCG/ACT Inhaler ??? terazosin (HYTRIN) 2 MG capsule ??? triamcinolone (KENALOG) 0.1 % external cream ??? warfarin ANTICOAGULANT (COUMADIN) 5 MG tablet ??? warfarin ANTICOAGULANT (COUMADIN) 7.5 MG tablet ??? zolpidem ER (AMBIEN CR) 12.5 MG CR tablet No current facility-administered medications for this visit. Which pharmacy do you prefer to use for medications during this visit if needed? Do you need refills on any of your medications? No Health Maintenance Due Topic Date Due ??? ANNUAL REVIEW OF HM ORDERS 1955 ??? Pneumococcal Vaccine: Pediatrics (0 to 5 Years) and At-Risk Patients (6 to 64 Years) (1 of 1 - PPSV23) 12/02/1963 ??? [place]OSTER IMMUNIZATION (1 of 2) 12/02/2007 ??? PREVENTIVE CARE VISIT 06/13/2018 ??? ADVANCE CARE PLANNING 04/28/2019 ??? PHQ-2 06/23/2019 ??? ASTHMA CONTROL TEST 11/30/2019 ??? ASTHMA ACTION PLAN 01/10/2020 Patient is due for: see above No appointment needed. MyChart Patient is active on [email or web address].- does not read messages Call Summary Thank you for your time today. Esthela Corea RN, [facility] INSPECTOR Froylan Louise MD - 05/26/2020 3:30 PM CST SUBJECTIVE: CC: Virgil Christine is an 64 year old male who presents for preventative health visit. Patient has been advised of split billing requirements and indicates understanding: Yes Healthy Habits: Taking medications regularly: 0 PHQ-2 Total Score: 0 History of Present Illness COPD: He presents for follow up of COPD. Overall, COPD symptoms are slightly worse since last visit.He has more than usual fatigue or shortness of breath with exertion and same as usual shortness of breath at rest. He sometimes coughs and does have change in sputum. No recent fever. He can walk 2-5 blocks without stopping to rest. He can walk 3 or more flights of stairs without resting.The patient has had no ED, urgent care, or hospital admissions because of COPD since the last visit. He eats 0-1 servings of fruits and vegetables daily.He consumes 1 sweetened beverage(s) daily.He exercises with enough effort to increase his heart rate 60 or more minutes per day. He exercises with enough effort to increase his heart rate 5 days per week. He is taking medications regularly. Patient with history of DVT in 2013 [...] persistent asthma, controlled. He is using the Symbicort inhaler though having some shortness of breath. History of ulcerative colitis, status post colectomy. Stable symptoms. Patient with history of insomnia. He uses Ambien as needed, typically twice per week. Today's PHQ-2 Score: PHQ-2 (??1998 Pfizer) 05/26/2020 Q1: Little interest or pleasure in doing things 0 Q2: Feeling down, depressed or hopeless 0 PHQ-2 Score 0 Q1: Little interest or pleasure in doing things Not at all Q2: Feeling down, depressed or hopeless Not at all PHQ-2 Score 0 Abuse: Current or Past(Physical, Sexual or Emotional)- No Do you feel safe in your environment? Yes Have you ever done Advance Care Planning? (For example, a Health Directive, POLST, or a discussion with a medical provider or your loved ones about your wishes): No, advance care planning information given to patient to review. Patient declined advance care planning discussion at this time. Social History Tobacco Use ??? Smoking status: Former Smoker Packs/day: 2.00 Years: 25.00 Pack years: 50.00 Types: Cigarettes Quit date: 08/04/2006 Years since quittin.8 ??? Smokeless tobacco: Never Used ??? Tobacco comment: 2005 Substance Use Topics ??? Alcohol use: Yes Comment: 4 BEERS A WEEK If you drink alcohol do you typically have >3 drinks per day or >7 drinks per week? No No flowsheet data found. Last PSA: PSA Date Value Ref Range Status 05/26/2020 0.37 0 - 4 ug/L Final Comment: Assay Method: Chemiluminescence using Siemens Polson analyzer Reviewed orders with patient. Reviewed health maintenance and updated orders accordingly - Yes Reviewed and updated as needed this visit by clinical staff Tobacco Med Hx Surg Hx Fam Hx Soc Hx Reviewed and updated as needed this visit by Provider Med Hx Past Medical History: Diagnosis Date ??? Antiplatelet [...] Chase Suazo MD; Location: [facility] OR ??? RESECTION ABDOMINAL PERINEAL Review of Systems CONSTITUTIONAL: NEGATIVE for fever, chills, change in weight INTEGUMENTARY/SKIN: NEGATIVE for worrisome rashes, moles or lesions EYES: NEGATIVE for vision changes or irritation ENT: NEGATIVE for ear, mouth and throat problems RESP: NEGATIVE for significant cough or SOB RESP: Shortness of breath, denies cough, denies chest pain CV: NEGATIVE for chest pain, palpitations or peripheral edema GI: NEGATIVE for nausea, abdominal pain, heartburn, or change in bowel habits male: negative for dysuria, hematuria, decreased urinary stream, erectile dysfunction, urethral discharge MUSCULOSKELETAL: NEGATIVE for significant arthralgias or myalgia NEURO: NEGATIVE for weakness, dizziness or paresthesias PSYCHIATRIC: NEGATIVE for changes in mood or affect OBJECTIVE: BP (!) 152/83 (BP Location: Right arm, Patient Position: Chair, Cuff Size: Adult Large) Pulse 101 Temp 97.6 ??F (36.4 ??C) (Oral) Ht 1.791 m (5' 10.5) Wt 108 kg (238 lb) SpO2 97% BMI 33.67kg/m?? Physical Exam GENERAL: healthy, alert and no distress EYES: Eyes grossly normal to inspection, PERRL [...] edemaand peripheral pulses strong ABDOMEN: soft, nontender, without hepatosplenomegaly or masses (male): normal male genitalia without lesions or urethral discharge, no hernia MS: no gross musculoskeletal defects noted, no edema SKIN: no suspicious lesions or rashes NEURO: Normal strength and tone, mentation intact and speech normal PSYCH: mentation appears normal, affect normal/bright Diagnostic Test Results: Labs reviewed in [facility] EKG: appears normal, NSR, normal axis, normal intervals, no acute ST/T changes c/w ischemia, no LVH by voltage criteria X-ray chest ordered and interpreted in the office today. X-ray shows: clear. Radiology read pending. ASSESSMENT/PLAN: 1. Routine general medical examination at a health care facility - TSH with free T4 reflex - CBC with platelets - Comprehensive metabolic panel (BMP + Alb, Alk Phos, ALT, AST, Total. Bili, TP) 2. Irregular heartbeat Appears to be PVCs based on normal EKG and exam today. - D dimer, quantitative - SLEEP EVALUATION & MANAGEMENT REFERRAL - [facility] [phone] (Age 18 and up); Future - XR Chest 2 Views - EKG 12-lead complete w/read - Clinics 3. Varicose veins of right lower extremity with both ulcer of ankle and inflammation (CODE) (H) 4. Other ulcerative colitis without complication (H) 5. Screening for prostate cancer - Prostate spec antigen screen 6. Chronic deep vein thrombosis (DVT) of lower extremity, unspecified laterality, unspecified vein (H) Continue coumadin. 7. S/P colectomy Following with colorectal. - CRP, inflammation 8. Moderate persistent asthma without complication Not controlled currently, try inhaler below. - Nscfhyclbfr-Vmjfjbcbn-Fzjduiomjb (TRELEGY ELLIPTA) 100-62.5-25 MCG/INH oral inhaler; Inhale 1 puffinto the lungs daily Dispense: 1 Inhaler; Refill: 11 9. Mild persistent asthma without complication - albuterol (PROAIR HFA/PROVENTIL HFA/VENTOLIN HFA) 108 (90 Base) MCG/ACT inhaler; Inhale 2 puffs into the lungs every 6 hours as needed for shortness of breath / dyspnea or wheezing Dispense: 3 Inhaler; Refill: 3 10. Benign prostatic hyperplasia with weak urinary stream - terazosin (HYTRIN) 2 MG capsule; Take 2 capsules (4 mg) by mouth At Bedtime Dispense: 180 capsule;Refill: 1 11. SOB (shortness of breath) Check labs noted. Chest x-ray and EKG unremarkable. Change inhaler. Recommend sleep study. - BNP-N terminal pro Patient has been advised of split billing requirements and indicates understanding: Yes COUNSELING: Reviewed preventive health counseling, as reflected in patient instructions Estimated body mass index is 33.67 kg/m?? as calculated from the following: Height as of this encounter: 1.791 m (5' 10.5). Weight as of this encounter: 108 kg (238 lb). Weight management plan: Discussed healthy diet and exercise guidelines He reports that he quit smoking about 13 years ago. His smoking use included cigarettes. He has a 50.00 pack-year smoking history. He has never used smokeless tobacco. Counseling Resources: ATP IV Guidelines Pooled Cohorts Equation Calculator FRAX Risk Assessment ICSI Preventive Guidelines Dietary Guidelines for Americans, 2009 USDA's MyPlate ASA Prophylaxis Lung CA Screening Froylan Louise MD [facility] INSPECTOR Froylan Louise MD - 05/26/2020 3:30 PM CST Prior to immunization administration, verified patients identity using patient???s name and date of . Please see Immunization Activity for additional information. Screening Questionnaire for Adult Immunization Are you sick today? No Do you have allergies to medications, food, a vaccine component or latex? No Have you ever had a serious reaction after receiving a vaccination? No Do you have a long-term health problem with heart, lung, kidney, or metabolic disease (e.g., diabetes), asthma, a blood disorder, no spleen, complement component deficiency, a cochlear implant, or a spinal fluid leak? Are you on long-term aspirin therapy? No Do you have cancer, leukemia, HIV/AIDS, or any other immune system problem? No Do you have a parent, brother, or sister with an immune system problem? No In the past 3 months, have you taken medications that affect your immune system, such as prednisone,other steroids, or anticancer drugs; drugs for the treatment of rheumatoid arthritis, Crohn???s disease, or psoriasis; or have you had radiation treatments? No Have you had a seizure, or a brain or other nervous system problem? No During the past year, have you received a transfusion of blood or blood products, or been given immune (gamma) globulin or antiviral drug? No For women: Are you or is there a chance you could become during the next month? No Have you received any vaccinations in the past 4 weeks? No Immunization questionnaire answers were all negative. Per orders of Dr. Louise,, injection of given by Rabia Mobley CMA. Patient instructed to remainin clinic for 15 minutes afterwards, and to report any adverse reaction to me immediately. Screening performed by Rabia Mobley CMA on 05/26/2020 at 4:49 PM. INSPECTOR documented in this encounter Plan of Treatment Upcoming Encounters Date Type Specialty Care Team Description 05/20/2022 Lab Lab Scheduled Referrals Name Type Priority Associated Diagnoses Order S chedule SLEEP EVALUATION & Referral Routine Irregular heartbeat Ex pected: 05/26/2020, MANAGEMENT REFERRAL - s: 05/26/2021 ADULT -[facility] [place] [phone] (Age 18 and up) documented as of this encounter Procedures Procedure Name Priority Date/Time Associated Comments Diagnosis N TERMINAL PRO BNP Routine 05/26/2020 4:49 PM SOB (shortness o f Results for this OUTPATIENT COKE INSPECTOR breath) procedure are i n the results section. CRP INFLAMMATION Routine 05/26/2020 4:49 PM S/P colectomy Resu lts for this COKE INSPECTOR procedure are i n the results section. TSH WITH FREE T4 Routine 05/26/2020 4:48 PM Routine general Re sults for this REFLEX COKE INSPECTOR medical examination procedur e are in at a health care the results facility section. PROSTATE SPECIFIC Routine 05/26/2020 4:48 PM Screening for Res ults for this ANTIGEN SCREEN COKE INSPECTOR prostate cancer procedure are in the results section. D DIMER QUANTITATIVE Routine 05/26/2020 4:48 PM Irregular hear tbeat Results for this COKE INSPECTOR procedure are i n the results section. COMPREHENSIVE Routine 05/26/2020 4:48 PM Routine general Resul ts for this METABOLIC PANEL COKE INSPECTOR medical examination proce dure are in at a health care the results facility section. CBC WITH PLATELETS Routine 05/26/2020 4:48 PM Routine general Results for this COKE INSPECTOR medical examination procedur e are in at a health care the results facility section. XR CHEST 2 VIEWS Routine 05/26/2020 4:02 PM Irregular heartbea t Results for this COKE INSPECTOR procedure are i n the results section. EKG 12-LEAD COMPLETE Routine 05/26/2020 Irregular heartbeat Results for this W/READ - CLINICS procedure a re in the results section. documented in this encounter Results BNP-N terminal pro (05/26/2020 4:49 PM COKE INSPECTOR) P athologist Signature N-Terminal Pro 46 0 - 125 05/26/2020 [place] Bnp pg/mL 6:22 PM [facility] Comment: Reference range shown and results flagge d as abnormal are for the outpatient, non acute settings. Establishing a basel ine value for each individual patient is useful for follow-up. Suggested inpatient cut points for confi rming diagnosis of CHF in an acute setting are: >450 pg/mL (age 18 to less than 50) >900 pg/mL (age 50 to less than 75) >1800 pg/mL (75 yrs and older) An inpatient or emergency department NT- proPBNP <300 pg/mL effectively rules out acute CHF, with 99% negative predict chari value. Specimen Anatomical Collection Method Collection Time Receive d Time (Source) Location / / Volume Laterality Blood specimen 05/26/2020 4:49 PM 020 4:50 (specimen) COKE INSPECTOR PM COKE INSPECTOR Froylan Louise MD LAB - BLOOD ORDERABLES Performing Organization Address City/[facility]/ZIP Code Phon e Number [facility] [address] [place], [place] [address] [facility] [address] [place], [place] [address], [facility] [phone] (ABNORMAL) CRP, inflammation (05/26/2020 4:49 PM COKE INSPECTOR) Patholo gist Method Time Signature CRP Inflammation 12.0 (H) 0.0 - 8.0 05/26/2020 [place] mg/L 6:18 PM [facility] Specimen Anatomical Collection Method Collection Time Receive d Time (Source) Location / / Volume Laterality Blood specimen 05/26/2020 4:49 PM 020 4:50 (specimen) COKE INSPECTOR PM COKE INSPECTOR Froylan Louise MD LAB - BLOOD ORDERABLES Performing Organization Address City/[facility]/ZIP Code Phon e Number [facility] [address] [place], [place] [address] [place] [address] [place], [place] [address], [facility] [phone] Prostate spec antigen screen (05/26/2020 4:48 PM COKE INSPECTOR) P athologist Signature PSA 0.37 0 - 4 ug/L 05/26/2020 [facility] 10:01 PM [facility] Comment: Assay Method: Chemiluminescence using Siemens Polson analyzer Specimen Anatomical Collection Method Collection Time Receive d Time (Source) Location / / Volume Laterality Blood specimen 05/26/2020 4:48 PM 020 4:49 (specimen) COKE INSPECTOR PM COKE INSPECTOR Froylan Louise MD LAB - BLOOD ORDERABLES Performing Organization Address City/State/ZIP Code Phon e Number [address] [address] [facility] Comprehensive metabolic panel (BMP + Alb, Alk Phos, ALT, AST, Total. Bili, TP) (05/26/2020 4:48 PM [facility]) athologist Signature Sodium 139 133 - 144 05/26/2020 [facility] mmol/L 6:12 PM [facility] Potassium 3.9 3.4 - 5.3 05/26/2020 [facility] mmol/L 6:12 PM [facility] Chloride 108 94 - 109 05/26/2020 [facility] mmol/L 6:12 PM [facility] Carbon Dioxide 26 20 - 32 05/26/2020 [facility] mmol/L 6:19 PM [facility] Anion Gap 5 3 - 14 05/26/2020 [facility] mmol/L 6:19 PM [facility] Glucose 97 70 - 99 05/26/2020 [facility] mg/dL 6:19 PM [facility] Urea Nitrogen 15 7 - 30 05/26/2020 [facility] mg/dL 6:19 PM [facility] Creatinine 0.90 0.66 - 05/26/2020 [facility] 1.25 mg/dL 6:19 PM [facility] GFR Estimate >90 >60 05/26/2020 [place] mL/min/{1. 6:19 PM [facility] 73_m2} HOSPITAL Comment: Non GFR Calc Starting 06/09/2018, serum creatinine ba sed estimated GFR (eGFR) will be calculated using the Chronic Kidney Dise [facility] Epidemiology Collaboration (CKD-EPI) equation. GFR Estimate If >90 >60 mL/min/{1.73_m2} 05/26/2020 6: 19 PM [facility] Comment: GFR Calc Starting 06/09/2018, serum creatinine ba sed estimated GFR (eGFR) will be calculated using the Chronic Kidney Dise [facility] Epidemiology Collaboration (CKD-EPI) equation. Calcium 8.9 8.5 - 10.1 mg/dL 05/26/2020 6:19 PM [facility] Bilirubin Total 0.9 0.2 - 1.3 mg/dL 05/26/2020 6:22 PM [facility] Albumin 3.5 3.4 - 5.0 g/dL 05/26/2020 6:22 PM [facility] Protein Total 7.5 6.8 - 8.8 g/dL 05/26/2020 6:22 PM [facility] Alkaline Phosphatase 101 40 - 150 U/L 05/26/2020 6:22 PM [facility] ALT 29 0 - 70 U/L 05/26/2020 6:22 PM [facility] AST 24 0 - 45 U/L 05/26/2020 6:22 PM [facility] Specimen Anatomical Collection Method Collection Time Receive d Time (Source) Location / / Volume Laterality Blood specimen 05/26/2020 4:48 PM 020 4:49 (specimen) COKE INSPECTOR PM COKE INSPECTOR Froylan Louise MD LAB - BLOOD ORDERABLES Performing Organization Address City/State/ZIP Code Phon e Number [facility] [address], [place] [address] [facility] [address] [phone] CBC with platelets (05/26/2020 4:48 PM COKE INSPECTOR) P athologist Signature WBC 6.6 4.0 - 11.0 05/26/2020 [facility] 10e9/L 5:05 PM [facility] RBC Count 4.95 4.4 - 5.9 05/26/2020 [facility] 10e12/L 5:05 PM [facility] Hemoglobin 15.1 13.3 - 05/26/2020 [facility] 17.7 g/dL 5:05 PM [facility] Hematocrit 46.1 40.0 - 05/26/2020 [facility] 53.0 % 5:05 PM [facility] MCV 93 78 - 100 05/26/2020 [facility] fl 5:05 PM [facility] MCH 30.5 26.5 - 05/26/2020 [facility] 33.0 pg 5:05 PM [facility] MCHC 32.8 31.5 - 05/26/2020 [facility] 36.5 g/dL 5:05 PM [facility] RDW 13.5 10.0 - 05/26/2020 [facility] 15.0 % 5:05 PM [facility] [facility] Platelet Count 169 150 - 450 05/26/2020 [facility] 10e9/L 5:05 PM [facility] Specimen Anatomical Collection Method Collection Time Receive d Time (Source) Location / / Volume Laterality Blood specimen 05/26/2020 4:48 PM 020 4:49 (specimen) COKE INSPECTOR PM COKE INSPECTOR Froylan Louise MD LAB - BLOOD ORDERABLES Performing Organization Address City/[facility]/ZIP Code Phon e Number [facility] [address] [place] [address] TSH with free T4 reflex (05/26/2020 4:48 PM COKE INSPECTOR) athologist Signature TSH 2.42 0.40 - 4.00 05/26/2020 [facility] mU/L 6:30 PM [facility] Specimen Anatomical Collection Method Collection Time Receive d Time (Source) Location / / Volume Laterality Blood specimen 05/26/2020 4:48 PM 4:49 (specimen) COKE INSPECTOR PM COKE INSPECTOR Froylan Louise MD LAB - BLOOD ORDERABLES Performing Organization Address [facility] Phon e Number [place] [address] [place], [place] [address] [phone] [place] [address] [phone] D dimer, quantitative (05/26/2020 4:48 PM COKE INSPECTOR) athologist Signature D Dimer 0.3 0.0 - 0.50 05/26/2020 [facility] ug/ml FEU 6:21 PM [facility] Comment: This D-dimer assay is intended for use i n conjunction with a clinical pretest probability assessment model to exclude pulmonary embolism (PE) and deep venous thrombosis (DVT) in outpatients s uspected of PE or DVT. The cut-off value is 0.5 ug/mL FEU. Specimen Anatomical Collection Method Collection Time Receive d Time (Source) Location / / Volume Laterality Blood specimen 05/26/2020 4:48 PM 4:49 (specimen) COKE INSPECTOR PM COKE INSPECTOR Froylan Louise MD LAB - BLOOD ORDERABLES Performing Organization Address City/[facility]/ZIP [facility] Phon e Number [facility] [address] [place], [place] [address] [facility] [address] [place], [place] [address] [phone] XR Chest 2 Views (05/26/2020 4:02 PM COKE INSPECTOR) Anatomical Region Laterality Modality Chest Computed Radiography Specimen (Source) Anatomical Location Collection Method / Collectio n Time Received Time / Laterality Volume Impressions 05/26/2020 4:44 PM COKE INSPECTOR IMPRESSION: No radiographic evidence of acute chest abnormality. ANDREAS COLEMAN MD Narrative 05/26/2020 4:44 PM COKE INSPECTOR CHEST TWO VIEWS 05/26/2020 4:02 PM HISTORY: Shortness of breath. Irregular heartbeat. COMPARISON: 03/12/2018 FINDINGS: Heart size and pulmonary vascu larity are within normal limits. The lungs are clear. No pneumoth orax or pleural effusion. Procedure Note Andreas Coleman MD - 05/26/2020Forma tting of this note might be different from the original. CHEST TWO VIEWS 05/26/2020 4:02 PM HISTORY: Shortness of breath. Irregular heartbeat. COMPARISON: 03/12/2018 FINDINGS: Heart size and pulmonary vascu larity are within normal limits. The lungs are clear. No pneumoth orax or pleural effusion. IMPRESSION: No radiographic evidence of acute chest abnormality. ANDREAS COLEMAN MD Froylan Louise MD IMG DIAGNOSTIC IMAGING ORDER [facility] EKG 12-lead complete w/read - Clinics (05/26/2020) Narrative This result has an attachment that is no t available. 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 (CODE) (H) Other ulcerative colitis without complic ation (H) Screening for prostate cancer Special screening for malignant neoplasm of prostate Chronic deep vein thrombosis (DVT) of lo wer extremity, unspecified laterality, unspecified vein (H) S/P colectomy Other postprocedural status Moderate persistent asthma without compl ication Unspecified asthma Benign prostatic hyperplasia with weak u rinary stream SOB (shortness of breath) Shortness of breath documented in this encounter Care Teams Communications Executive Relationship Specialty Start Date End Date Froylan Louise MD PCP - General Family Practice 02/22/14 Froylan Louise MD Assigned PCP 03/13/14 2 documented as of this encounter
--- OUTSIDE RECORDS SUMMARY | 2022-05-15 22:25 | XMS_ITS | Encounter Summary ---
:1955 Author Organization [place] Address [address] [place] [address] Care Team Providers Name Role Phone Froylan Louise MD Primary Care Provider Unavailable Froylan Louise MD Unavailable Unavailable Reason for Visit Reason Comments Medication Refill warfarin Encounter Details Date Type Department Care Team Description 04/24/2020 Refill [facility] Froylan Louise Ra, Medication Refill Chhaya VILLASEÑOR (warfarin) [address] [place] [address] Social History Tobacco Use [...] you attend evangelical or Patient refused 2020 jainism services? Do [...] Telephone Encounter - Jazzy Ramos RN - 04/24/2020 4:28 PM CST Last INR: 04/03/20=2.3 Next INR: due 05/26/20, appt. Not yet scheduled Prescription approved per [facility] Refill Protocol. Jazzy Ramos RN SPHERIC PHYSICIST Telephone Encounter - Halina Ley RN - 04/24/2020 3:06 PM CST Routing to INR Halina Bustillos RN, BSN SPHERIC PHYSICIST documented in this encounter Plan of Treatment Upcoming Encounters Date Type Specialty Care Team Description 05/20/2022 Lab Lab documented as of this encounter Visit Diagnoses Diagnosis senior care current use of anticoagulants with INR goal of 2.0-3.0 - Primary Acute deep vein thrombosis (DVT) of prox imal vein of both lower extremities (H) documented in this encounter Care Teams Plant Propagator Relationship Specialty Start Date End Date Froylan Louise MD PCP - General Family Practice 02/22/14 Froylan Louise MD Assigned PCP 03/13/14 2 documented as of this encounter
--- OUTSIDE RECORDS SUMMARY | 2022-05-15 22:25 | XMS_ITS | Encounter Summary ---
:1955 Author Organization [place] Address [address] [place] [address] Care Team Providers Name Role Phone Froylan Louise MD Primary Care Provider Unavailable Froylan Louise MD Unavailable Unavailable Reason for Visit Reason Onset Date Comments Results 05/29/2020 Encounter Details Date Type Department Care Team Description 05/29/2020 Telephone [facility] Froylan Louise Ra, MD Results [address] [address] Social History Tobacco Use [...] containing 4 or more times a w [place] 05/25/2021 alcohol? How many drinks containing alcohol [...] attend roman catholic or Patient refused 2020 congregation services? Do [...] with No / Unsure 05/26/2020 3:06 PM MANAGER AUDIO someone who was confirmed or suspected to have Coronavirus / COVID-19? documented as of this encounter Miscellaneous Notes Telephone Encounter - Erendira Olmos RN - 05/29/2020 3:23 PM CST Patient calling to go over lab results. Discussed below. No questions at this time. Erendira Olmos RN Written by Froylan Louise MD on 05/28/2020 12:03 PM Dear Virgil, Here are the results of your recent lab tests, Your CRP inflammation test is improved from previous. ??This has been high previously likely due to your colitis and colitis related joint issues. ??This is improved from prior levels. You have normal red blood cell (hemoglobin) levels, no anemia, normal white blood cell count and normal platelet levels. Your D-dimer test which can be an indication of a blood clot was normal. This makes it less likely to have any new blood clot present. ??Continue your warfarin due to your previous clots. Your BNP level looking for heart failure as a cause for swelling or shortness of breath was normal for your age. ??This would make it less likely that CHF/heart failure is the cause for that symptom. Your complete metabolic panel indicates normal kidney function, normal electrolyte levels (sodium, potassium, and calcium were normal), normal blood sugar level (glucose), and normal liver function (ALT, AST, bilirubin). Your TSH level, a screening test for thyroid disease, was normal. Your PSA (prostate cancer screening blood test) is normal. You have normal red blood cell (hemoglobin) levels, no anemia, normal white blood cell count and normal platelet levels. Overall everything looks good. Call or send a [employer] message if you have any questions. Froylan Louise MD [facility] GER AUDIO documented in this encounter Plan of Treatment Upcoming Encounters Date Type Specialty Care Team Description 05/20/2022 Lab Lab documented as of this encounter Visit Diagnoses Not on filedocumented in this encounter Care Teams Merchandise Stocker Relationship Specialty Start Date End Date Froylan Louise MD PCP - General Family Practice 02/22/14 Froylan Louise MD Assigned PCP 03/13/14 2 documented as of this encounter
--- OUTSIDE RECORDS SUMMARY | 2022-05-15 22:25 | XMS_ITS | Encounter Summary ---
:1955 Author Organization [place] Address [address] [place] [address] Care Team Providers Name Role Phone Froylan Louise MD Primary Care Provider Unavailable Froylan Louise MD Unavailable Unavailable Encounter Details Date Type Department Care Team Description 02/15/2020 Orders Only [facility] Clinic Per killian history of DVT [facility] (deep vein thrombosis) [address] [place] [address] Social History Tobacco Use [...] containing 4 or more times a w [place] 05/25/2021 alcohol? How many drinks containing alcohol [...] you attend buddhist or Patient refused 2020 protestant services? Do [...] Date/Time Associated Comments Diagnosis CAPILLARY BLOOD Routine 02/15/2020 3:49 PM Personal history of Results for this COLLECTION CDT DVT (deep vein procedure are in thrombosis) the results section. INR Routine 02/15/2020 3:49 PM Personal history of Re sults for this CDT DVT (deep vein procedure are in thrombosis) the results section. documented in this encounter Results Capillary Blood Collection (02/15/2020 3:49 PM CDT) [facility] gist Method Time Signature Capillary Capillary 02/15/2020 [facility] Blood collection 3:50 PM CDT CLINICS Collection performed [place] Specimen Anatomical Collection Method Collection Time Receive d Time (Source) Location / / Volume Laterality 02/15/2020 3:49 PM 0 3:50 CDT PM CDT Froylan Louise MD LAB - LAB COMMUNICATION Performing Organization Address City/[facility]/ZIP Code Phon e Number [facility] [address] [address] [facility] [place] [address] (ABNORMAL) INR (02/15/2020 3:49 PM CDT) P athologist Signature INR 2.70 (H) 0.86 - 1.14 02/15/2020 [facility] 4:04 PM CDT [facility] Comment: This test is intended for monitoring Cou madin therapy. ??Results are not accurate in patients with prolonged INR due to factor deficiency. Specimen Anatomical Collection Method Collection Time Receive d Time (Source) Location / / Volume Laterality Blood specimen 02/15/2020 3:49 PM 020 3:50 (specimen) CDT PM CDT Froylan Louise MD LAB - BLOOD ORDERABLES Performing Organization Address City/[facility]/ZIP Code Phon e Number [facility] [address] [place] [address] documented in this encounter Visit Diagnoses Diagnosis Personal history of DVT (deep vein throm bosis) Personal history of venous thrombosis an d embolism documented in this encounter Care Teams Embedded Software Programmer Relationship Specialty Start Date End Date Froylan Louise MD PCP - General Family Practice 02/22/14 Froylan Louise MD Assigned PCP 03/13/14 2 documented as of this encounter
--- OUTSIDE RECORDS SUMMARY | 2022-05-15 22:25 | XMS_ITS | Encounter Summary ---
:1955 Author Organization [place] Address [address] [place] [address] Care Team Providers Name Role Phone Froylan Louise MD Primary Care Provider Unavailable Froylan Louise MD Unavailable Unavailable Esthela Corea RN Unavailable Unavailable So Dodd MD Primary Care Provider Froylan Louise MD Primary Care Provider Unavailable So Dodd MD Unavailable So Dodd MD Primary Care Provider Reason for Visit Reason Comments Medication Refill Encounter Details Date Type Department Care Team Description 04/21/2020 Refill [facility] Froylan Louise Ra, MD Medication Refill [address] [address] Social History Tobacco Use [...] containing 4 or more times a w [place] 05/25/2021 alcohol? How many drinks containing alcohol [...] you attend samaritan or Patient refused 2020 oriental orthodox services? [...] (H) documented in this encounter Care Teams Salesperson Wigs Relationship Specialty Start Date End Date Froylan Louise MD PCP - General Family Practice 02/22/14 So Dodd MD PCP - General Family Medicine 01/10/22 01/17/22 [address] [place] [address] Froylan Louise MD PCP - General Family Medicine 01/18/22 So Dodd MD PCP - General Family Medicine 02/21/22 [address] [place] [address] Froylan Louise MD Assigned PCP 03/13/14 2 Esthela Corea, RN Personal Advocate & Liaison Family Medicine 10/16 (PAL) So Dodd MD Assigned PCP 01/05/22 [address] [place] [address] documented as of this encounter
--- OUTSIDE RECORDS SUMMARY | 2022-05-15 22:25 | XMS_ITS | Encounter Summary ---
:1955 Author Organization [place] Address [address] [place] [address] Care Team Providers Name Role Phone Froylan Louise MD Primary Care Provider Unavailable Froylan Louise MD Unavailable Unavailable Reason for Visit Reason Comments Medication Refill Encounter Details Date Type Department Care Team Description 02/09/[address] [facility] Ra, MD Medication Refill [address] [address] Social History Tobacco Use [...] you attend sabianist or Patient refused 2020 jainism services? Do [...] Telephone Encounter - Esthela Corea RN - 02/10/2020 8:50 AM CDT RX monitoring program ([place]) reviewed: SIMULATION TECHNICIAN reviewed- no concerns Last fill 10/03 Esthela Corea RN Controlled Substance Refill Request for zolpidem Problem List Complete: No PROVIDER TO CONSIDER COMPLETION OF PROBLEM LIST AND OVERVIEW/CONTROLLED SUBSTANCE AGREEMENT Last Written Prescription Date: 10/04/2019 Last Fill Quantity: 30 Last Office Visit with [facility] primary care provider: 05/31/19 Future Office visit: Controlled substance agreement: Encounter-Level CSA: There are no encounter-level csa. Patient-Level CSA: There are no patient-level csa. Last Urine Drug Screen: No results found for: CDAUT, No results found for: COMDAT, No results found for: THC13, PCP13, COC13, MAMP13, OPI13, AMP13, BZO13, TCA13, MTD13, BAR13, OXY13, PPX13, BUP13 Processing: Rx to be electronically transmitted to pharmacy by provider [email or web address] SIMULATION TECHNICIAN checked in past 3 months? Yes today \ documented in this encounter Plan of Treatment Upcoming Encounters Date Type Specialty Care Team Description 05/20/2022 Lab Lab documented as of this encounter Visit Diagnoses Diagnosis Insomnia, unspecified type documented in this encounter Care Teams Torch Cutter Relationship Specialty Start Date End Date Froylan Louise MD PCP - General Family Practice 02/22/14 Froylan Louise MD Assigned PCP 03/13/14 2 documented as of this encounter
--- OUTSIDE RECORDS SUMMARY | 2022-05-15 22:25 | XMS_ITS | Encounter Summary ---
:1955 Author Organization [place] Address [address] [place] [address] Care Team Providers Name Role Phone Froylan Louise MD Primary Care Provider Unavailable Froylan Louise MD Unavailable Unavailable Reason for Visit Reason Comments Allied Health Visit bp check Encounter Details Date Type Department Care Team Description 06/09/2020 Allied Health/[facility] [place] All ied Health Visit (bp Visit Clinic [place] check) [address] [place] [address] Social History Tobacco Use Types [...] you attend amish or Patient refused 2020 buddhism services? Do [...] with No / Unsure 06/09/2020 3:26 PM SUPERVISOR CHANNEL PROCESS someone who was confirmed or suspected to have Coronavirus / COVID-19? documented as of this encounter Last Filed Vital Signs Vital Sign Reading Time Taken Comments Blood Pressure 144/92 06/09/2020 3:40 PM SUPERVISOR CHANNEL PROCESS Pulse 74 06/09/2020 3:40 PM SUPERVISOR CHANNEL PROCESS Temperature - - Respiratory Rate - - Oxygen Saturation - - Inhaled Oxygen Concentration - - Weight - - Height - - Body Mass Index - - documented in this encounter Progress Notes Marco Pak CMA - 06/09/2020 2:00 PM CST Virgil Christine is a 64 year old patient who comes in today for a Blood Pressure check. Initial BP: BP (!) 144/92 (BP Location: Right arm, Patient Position: Sitting, Cuff Size: Adult Large) Pulse 74 74 Disposition: results routed to provider Patient states takes medication as prescribed Marco Pak CMA RVISOR CHANNEL PROCESS documented in this encounter Plan of Treatment Upcoming Encounters Date Type Specialty Care Team Description 05/20/2022 Lab Lab documented as of this encounter Visit Diagnoses Diagnosis BP check - Primary Screening for hypertension documented in this encounter Care Teams Stunner And Shackler Relationship Specialty Start Date End Date Froylan Louise MD PCP - General Family Practice 02/22/14 Froylan Louise MD Assigned PCP 03/13/14 2 documented as of this encounter
--- OUTSIDE RECORDS SUMMARY | 2022-05-15 22:25 | XMS_ITS | Encounter Summary ---
:1955 Author Organization [place] Address [address] [place] [address] Care Team Providers Name Role Phone Froylan Louise MD Primary Care Provider Unavailable Froylan Louise MD Unavailable Unavailable Encounter Details Date Type Department Care Team Description 04/03/2020 Anticoagulation Therapy [facility], Chronic deep vein thrombosis (DVT) of lower extremity, unspecified laterality, unspecified vein (H); Visit Clinic oJnah Conrad RN custodial current use of ant icoagulant therapy [address] [place] [address] Social History Tobacco Use Types Packs/Day [...] you attend buddhist or Patient refused 2020 roman catholic services? [...] encounter Progress Notes Diana Nielsen RN - 04/03/2020 12:56 PM CDT ANTICOAGULATION FOLLOW-UP CLINIC VISIT Patient Name: Virgil Christine Date: 04/03/2020 Contact Type: Telephone SUBJECTIVE: Patient Findings Comments: Called patient to discuss today's INR results: The patient was assessed for diet, medication, and activity level changes, missed or extra doses, bruising or bleeding, with no problem findings. Reviewed maintenance warfarin dosing with patient. Patient will remain on the same dose until nextINR check. No other questions or concerns. Advised next INR check in six weeks, however patient has an appt with Dr. Louise the following week and would like to combine visits. Next INR in a little over7 weeks. Diana Garcia RN [facility]tico[facility] [place] Clinical Outcomes Negatives: Major bleeding event, Thromboembolic event, Anticoagulation-related hospital admission, Anticoagulation-related ED visit, Anticoagulation-related fatality Comments: Called patient to discuss today's INR results: The patient was assessed for diet, medication, and activity level changes, missed or extra doses, bruising or bleeding, with no problem findings. Reviewed maintenance warfarin dosing with patient. Patient will remain on the same dose until nextINR check. No other questions or concerns. Advised next INR check in six weeks, however patient has an appt with Dr. Louise the following week and would like to combine visits. Next INR in a little over7 weeks. Diana Garcia RN [facility] OBJECTIVE Recent labs: (last 7 days) 04/03/20 1019 INR 2.30* ASSESSMENT / PLAN INR assessment THER Recheck INR In: 6 WEEKS INR Location Clinic Anticoagulation Summary As of 04/03/2020 INR goal: 2.0-3.0 TTR: 72.0 % (1 y) INR used for dosin.30 (04/03/2020) Warfarin maintenance plan: 5 mg (5 mg x 1) every Wed; 7.5 mg (7.5 mg x 1) all other days Full warfarin instructions: 5 mg every Wed; 7.5 mg all other days Weekly warfarin total: 50 mg No change documented: Diana Nielsen RN Plan last modified: Hilda Burch RN (05/14/2019) Next INR check: 05/26/2020 Priority: Maintenance Target end date: 09/30/2020 Indications Chronic deep vein thrombosis (DVT) of lower extremity unspecified laterality unspecified vein (H) [I82.509] Long-term (current) use of anticoagulants [Z79.01] [Z79.01] Anticoagulation Episode Summary INR check location: Preferred lab: Send INR reminders to: [facility] Comments: Anticoagulation Care Providers Provider Role Specialty Phone number Froylan Louise MD Referring Family Practice [phone] See the Encounter Report to view Anticoagulation [...] herapy documented in this encounter Care Teams Lead Operator Relationship Specialty Start Date End Date Froylan Louise MD PCP - General Family Practice 02/22/14 Froylan Louise MD Assigned PCP 03/13/14 2 documented as of this encounter
--- OUTSIDE RECORDS SUMMARY | 2022-05-15 22:25 | XMS_ITS | Encounter Summary ---
:1955 Author Organization [place] Address [address] [place] [address] Care Team Providers Name Role Phone Froylan Louise MD Primary Care Provider Unavailable Froylan Louise MD Unavailable Unavailable Reason for Visit Reason Onset Date Comments Patient/info Update 06/09/2020 bp check Encounter Details Date Type Department Care Team Description 06/09/2020 Telephone [facility] Froylan Louise Pati ent/info Update (bp Clinic [facility] check) [address] [place] [address] Social History Tobacco Use Types [...] 4 or more times a w [place] 05/25/2021 alcohol? How many drinks containing alcohol [...] you attend evangelical or Patient refused 2020 temple services? Do [...] No / Unsure 06/09/2020 3:26 PM SUPERVISOR CIGAR PROCESSING someone who was confirmed or suspected to have Coronavirus / COVID-19? documented as of this encounter Miscellaneous Notes Telephone Encounter - Wendi Lindsay RN - 06/12/2020 9:23 AM CST Pt agrees with plan. Please sign orders. Wendi Lindsay RN, BSN RVISOR CIGAR PROCESSING Telephone Encounter - Froylan Louise MD - 06/11/2020 10:10 AM CST Not controlled. Recommend consider hydrochlorothiazide 12.5 mg daily for BP with MA BP recheck in 3 weeks with lab (already has lab-only on 06/30) for BMP. RVISOR CIGAR PROCESSING Telephone Encounter - Marco Pak CMA - 06/09/2020 3:43 PM CST Virgil Christine is a 64 year old patient who comes in today for a Blood Pressure check. Initial BP: BP (!) 144/92 (BP Location: Right arm, Patient Position: Sitting, Cuff Size: Adult Large) Pulse 74 74 Disposition: results routed to provider ?? Patient states takes medication as prescribed ?? Marco Pak CMA RVISOR CIGAR PROCESSING documented in this encounter Plan of Treatment Upcoming Encounters Date Type Specialty Care Team Description 05/20/2022 Lab Lab documented as of this encounter Results (ABNORMAL) Basic metabolic panel (Ca, Cl, CO2, Creat, Gluc, K, Na, BUN) (09/03/2020 9:09 AM CDT) Analysis Performed At [facility] Time Signature Sodium 139 133 - 144 09/03/2020 [facility] mmol/L 2:12 PM CDT [facility] Potassium 4.0 3.4 - 5.3 09/03/2020 [facility] mmol/L 2:12 PM CDT [facility] Chloride 107 94 - 109 09/03/2020 [facility] mmol/L 2:12 PM [facility] Carbon Dioxide 30 20 - 32 09/03/2020 [place] mmol/L 2:17 PM [facility] Anion Gap 2 (L) 3 - 14 09/03/2020 [facility] mmol/L 2:17 PM [facility] Glucose 105 (H) 70 - 99 09/03/2020 [facility] mg/dL 2:17 PM [facility] Comment: Fasting specimen Urea Nitrogen 15 7 - 30 mg/dL 09/03/2020 2:17 PM [facility] Creatinine 0.89 0.66 - 1.25 mg/dL 09/03/2020 2:[address] [facility] GFR Estimate >90 >60 09/03/2020 2:17 PM T [facility] mL/min/{1.73_m2} HOSPITAL Comment: Non GFR Calc Starting 06/09/2018, serum creatinine ba sed estimated GFR (eGFR) will be calculated using the Chronic Kidney Dise [facility] Epidemiology Collaboration (CKD-EPI) equation. GFR Estimate If >90 >60 mL/min/{1.73_m2} 09/03/2020 2: 17 PM [facility] Comment: GFR Calc Starting 06/09/2018, serum creatinine ba sed estimated GFR (eGFR) will be calculated using the Chronic Kidney Dise [facility] Epidemiology Collaboration (CKD-EPI) equation. Calcium 8.8 8.5 - 10.1 mg/dL 09/03/2020 2:17 PM [facility] Specimen Anatomical Collection Method Collection Time Receive d Time (Source) Location / / Volume Laterality Blood specimen 09/03/2020 9:09 AM 021 9:10 (specimen) CDT AM CDT Froylan Louise MD LAB - BLOOD ORDERABLES Performing Organization Address City/State/ZIP Code Phon e Number [facility] [address] [address] [phone] [facility] [address] [place], [place] [address] [facility] [address] [address], [facility] [phone] (ABNORMAL) Lipid panel reflex to direct LDL Fasting (09/03/2020 9:09 AM CDT) Analysis Performed At [facility] Time Signature Cholesterol 196 <200 mg/dL 09/03/2020 [place] 2:17 PM CDT [facility] Triglycerides 211 (H) <150 mg/dL 09/03/2020 [place] 2:18 PM CDT [facility] Comment: Borderline high: ??150-199 mg/dl High: ? 200-499 mg/dl Very high: ? >499 mg/dl Fasting specimen HDL Cholesterol 36 (L) >39 mg/dL 09/03/2020 2:22 PM [facility] [place] LDL Cholesterol 118 (H) <100 mg/dL 09/03/2020 2:[address] [facility] CDT [facility] [place] Comment: Above desirable: ??100-129 mg/dl Borderline High: ??130-159 mg/dL High: ? 160-189 mg/dL Very high: ? >189 mg/dl Non HDL Cholesterol 160 (H) <130 mg/dL 09/03/2020 2:[address] [facility] Comment: Above Desirable: ??130-159 mg/dl Borderline high: ??160-189 mg/dl High: ? 190-219 mg/dl Very high: ? >219 mg/dl Specimen Anatomical Collection Method Collection Time Receive d Time (Source) Location / / Volume Laterality Blood specimen 09/03/2020 9:09 AM 021 9:10 (specimen) CDT AM CDT Froylan Louise MD LAB - BLOOD ORDERABLES Performing Organization Address City/State/ZIP Code Phon e Number [facility] [address] [place], [place] [address] [facility] [address] [phone], [facility] [phone] documented in this encounter Visit Diagnoses Diagnosis Lipid screening - Primary Screening for lipoid disorders Essential hypertension Unspecified essential hypertension documented in this encounter Care Teams Online Merchant Relationship Specialty Start Date End Date Froylan Louise MD PCP - General Family Practice 02/22/14 Froylan Louise MD Assigned PCP 03/13/14 2 documented as of this encounter
--- OUTSIDE RECORDS SUMMARY | 2022-05-15 22:25 | XMS_ITS | Encounter Summary ---
:1955 Author Organization [place] Address [address] [place] [address] Care Team Providers Name Role Phone Froylan Louise MD Primary Care Provider Unavailable Froylan Louise MD Unavailable Unavailable Reason for Visit Reason Comments Medication Refill Encounter Details Date Type Department Care Team Description 03/19/2020 Refill [facility] Froylan Louise Ra, MD Medication Refill [address] [address] Social History Tobacco Use [...] containing 4 or more times a w [place] 05/25/2021 alcohol? How many drinks containing alcohol [...] or relatives? How often do you attend voodoo or Patient refused 2020 hoahaoism services? Do you belong to any clubs or Yes 05/25/2021 organizations such as voodoo groups, unions, fraternal or athletic groups, or [...] Telephone Encounter - Wendi Lindsay RN - 03/20/2020 9:35 AM CDT Routing refill request to provider for review/approval because: Drug not on the [facility] refill protocol Wendi Lindsay RN, BSN documented in this encounter Plan of Treatment Upcoming Encounters Date Type Specialty Care Team Description 05/20/2022 Lab Lab documented as of this encounter Visit Diagnoses Diagnosis H/O ulcerative colitis Personal history of other diseases of di gestive system documented in this encounter Care Teams Expansion Joint Builder Relationship Specialty Start Date End Date Froylan Louise MD PCP - General Family Practice 02/22/14 Froylan Louise MD Assigned PCP 03/13/14 2 documented as of this encounter
--- OUTSIDE RECORDS SUMMARY | 2022-05-15 22:25 | XMS_ITS | Encounter Summary ---
:1955 Author Organization [place] Address [address] [place] [address] Care Team Providers Name Role Phone Froylan Louise MD Primary Care Provider Unavailable Froylan Louise MD Unavailable Unavailable Encounter Details Date Type Department Care Team Description 02/15/2020 Anticoagulation Therapy [facility] Jazzy Ramos Chronic deep vein thrombosis (DVT) of lower extremity, unspecified laterality, unspecified vein (H); Visit Clinic Demetra Conrad RN [facility] use of anticoagulant therapy [address] [address] Social History Tobacco Use Types Packs/Day Years Used Date Smoking Tobacco: Former Cigarettes 2 25 Quit : 08/04/2006 Smokeless Tobacco: Never Comments: 2004 Alcohol Use Standard Drinks/Week Comments Yes 0 (1 standard drink = 0.6 oz pure alcoho l) 4 BEERS A WEEK Alcohol Habits Answer Date Recorded How often do you have a drink containing 4 or more times a w [place] 05/25/2021 alcohol? How many drinks containing alcohol [...] you attend worship or Patient refused 2020 rastafari services? Do [...] Progress Notes Diana Nielsen RN - 02/15/2020 4:10 PM CDT Duplicate. Error. Please disregard. documented in this encounter Plan of Treatment Upcoming Encounters Date Type Specialty Care Team Description 05/20/2022 Lab Lab documented as of this encounter Visit Diagnoses Diagnosis Chronic deep vein thrombosis (DVT) of lo wer extremity, unspecified laterality, unspecified vein (H) salvage determiner current use of anticoagulant t herapy documented in this encounter Care Teams Sill Worker Relationship Specialty Start Date End Date Froylan Louise MD PCP - General Family Practice 02/22/14 Froylan Louise MD Assigned PCP 03/13/14 2 documented as of this encounter
--- OUTSIDE RECORDS SUMMARY | 2022-05-15 22:25 | XMS_ITS | Encounter Summary ---
:1955 Author Organization [place] Address [address] [place] [address] Care Team Providers Name Role Phone Froylan Louise MD Primary Care Provider Unavailable Froylan Louise MD Unavailable Unavailable Esthela Corea RN Unavailable Unavailable So Dodd MD Primary Care Provider Froylan Louise MD Primary Care Provider Unavailable So Dodd MD Unavailable So Dodd MD Primary Care Provider Reason for Visit Reason Comments Medication Refill Encounter Details Date Type Department Care Team Description 01/24/2020 Refill [facility] Froylan Louise Ra, MD Medication Refill [address] [address] Social History Tobacco Use [...] you attend baptist or Patient refused 2020 jew services? Do [...] (H) documented in this encounter Care Teams Drop Worker Relationship Specialty Start Date End Date Froylan Louise MD PCP - General Family Practice 02/22/14 So Dodd MD PCP - General Family Medicine 01/10/22 01/17/22 [address] [place] [address] Froylan Louise MD PCP - General Family Medicine 01/18/22 So Dodd MD PCP - General Family Medicine 02/21/22 [address] [place] [address] Froylan Louise MD Assigned PCP 03/13/14 2 Esthela Corea, RN Personal Advocate & Liaison Family Medicine 10/16 (PAL) So Dodd MD Assigned PCP 01/05/22 [address] [place] [address] documented as of this encounter
--- OUTSIDE RECORDS SUMMARY | 2022-05-15 22:25 | XMS_ITS | Encounter Summary ---
:1955 Author Organization [place] Address [address] [place] [address] Care Team Providers Name Role Phone Froylan Louise MD Primary Care Provider Unavailable Froylan Louise MD Unavailable Unavailable Reason for Visit Reason Comments Medication Refill Encounter Details Date Type Department Care Team Description 03/12/2020 Refill [facility] Froylan Louise Ra, MD Medication Refill [address] [address] Social History Tobacco Use [...] 4 or more times a w [place] 05/25/2021 alcohol? How many drinks containing alcohol [...] you attend voodoo or Patient refused 2020 evangelical services? Do [...] Telephone Encounter - Wendi Lindsay RN - 03/13/2020 9:09 AM CDT Routing refill request to provider for review/approval because: Drug not on the [facility] refill protocol Patient does not have Tadalafil, Vardenafil, or Sildenafil on their medication list documented in this encounter Plan of Treatment Upcoming Encounters Date Type Specialty Care Team Description 05/20/2022 Lab Lab documented as of this encounter Visit Diagnoses Diagnosis Benign prostatic hyperplasia with weak u rinary stream documented in this encounter Care Teams Diesel Pile Hammer Operator Relationship Specialty Start Date End Date Froylan Louise MD PCP - General Family Practice 02/22/14 Froylan Louise MD Assigned PCP 03/13/14 2 documented as of this encounter
--- OUTSIDE RECORDS SUMMARY | 2022-05-15 22:25 | XMS_ITS | Encounter Summary ---
:1955 Author Organization [place] Address [facility] [place] [address] Care Team Providers Name Role Phone Froylan Louise MD Primary Care Provider Unavailable Froylan Louise MD Unavailable Unavailable Reason for Visit Diagnostic Imaging XR (Routine) - Closed Specialty Diagnoses / Procedures Referred By Contact Refer red To Contact Diagnoses Irregular heartbeat Froylan Louise MD Procedures XR Chest [id number] [place] [address] Referral ID Status Reason Start Date Expiration Date Visits Requ ested Visits Authorized [id number] Closed 05/26/2020 05/26/2021 1 1 Encounter Details Date Type Department Care Team Description 05/26/2020 Ancillary Procedure [facility] Froylan Louise Ra, [facility] [address] [place] [address] Social History Tobacco Use Types [...] containing 4 or more times a w [place] 05/25/2021 alcohol? How many drinks containing alcohol [...] you attend nondenominational or Patient refused 2020 synagogue services? Do you belong to any clubs [...] with No / Unsure 05/26/2020 3:06 PM SALES MANAGEMENT TRAINEE someone who was confirmed or suspected to have Coronavirus / COVID-19? documented as of this encounter Plan of Treatment Upcoming Encounters Date Type Specialty Care Team Description 05/20/2022 Lab Lab documented as of this encounter Procedures Procedure Name Priority Date/Time Associated Diagnosis Comme nts XR CHEST 2 VIEWS Routine 05/26/2020 4:02 PM Irregular heartbea t Results for this SALES MANAGEMENT TRAINEE procedure are i n the results section. documented in this encounter Results XR Chest 2 Views (05/26/2020 4:02 PM SALES MANAGEMENT TRAINEE) Anatomical Region Laterality Modality Chest Computed Radiography Specimen (Source) Anatomical Location Collection Method / Collectio n Time Received Time / Laterality Volume Impressions 05/26/2020 4:44 PM SALES MANAGEMENT TRAINEE IMPRESSION: No radiographic evidence of acute chest abnormality. ANDREAS COLEMAN MD Narrative 05/26/2020 4:44 PM SALES MANAGEMENT TRAINEE CHEST TWO VIEWS 05/26/2020 4:02 PM HISTORY: [...] on filedocumented in this encounter Care Teams Door Liner Relationship Specialty Start Date End Date Froylan Louise MD PCP - General Family Practice 02/22/14 Froylan Louise MD Assigned PCP 03/13/14 2 documented as of this encounter
--- OUTSIDE RECORDS SUMMARY | 2022-05-15 22:25 | XMS_ITS | Encounter Summary ---
:1955 Author Organization [place] Address [address] [place] [address] Care Team Providers Name Role Phone Froylan Louise MD Primary Care Provider Unavailable Froylan Louise MD Unavailable Unavailable Encounter Details Date Type Department Care Team Description 01/18/2020 Travel Social History Tobacco Use Types Packs/Day Years Used Date Smoking Tobacco: Former Cigarettes 2 25 Quit : 08/04/2006 Smokeless Tobacco: Never Comments: 2004 Alcohol Use Standard Drinks/Week Comments Yes 0 (1 standard drink = 0.6 oz pure alcoho l) 4 BEERS A WEEK Alcohol Habits Answer Date Recorded How often do you have a drink containing 4 or more times a w [place] 05/25/2021 alcohol? How many drinks containing alcohol [...] you attend restoration or Patient refused 2020 congregation services? Do [...] on filedocumented in this encounter Care Teams Tank Builder Helper Relationship Specialty Start Date End Date Froylan Louise MD PCP - General Family Practice 02/22/14 Froylan Louise MD Assigned PCP 03/13/14 2 documented as of this encounter
--- OUTSIDE RECORDS SUMMARY | 2022-05-15 22:25 | XMS_ITS | Encounter Summary ---
:1955 Author Organization [place] Address [address] [place] [address] Care Team Providers Name Role Phone Froylan Louise MD Primary Care Provider Unavailable Froylan Louise MD Unavailable Unavailable Reason for Visit Reason Comments Medication Refill Encounter Details Date Type Department Care Team Description 04/11/2020 Refill [facility] Dolly, Medication Refill Dolores Isabel oMnte PA-C [id number] [place] [phone] [place] [address] (Wo rk) Social History Tobacco [...] you attend baptist or Patient refused 2020 baptist services? Do [...] Telephone Encounter - Regina Wise RN - 04/12/2020 8:22 AM CDT Routing refill request to provider for review/approval because: Drug not on the [facility] refill protoco zolpidem ER (AMBIEN CR) 12.5 MG CR tablet 30 tablet 0 02/10/2020 No Sig: TAKE 1 TABLET BY MOUTH AT BEDTIME NEEDED FOR SLEEP Sent to pharmacy as: Zolpidem Tartrate ER 12.5 MG Oral Tablet Extended Release (AMBIEN CR) Class: E-Prescribe Notes to Pharmacy: Not to exceed 5 additional fills before 04/01/2020 Order: [id number] E-Prescribing Status: Receipt confirmed by pharmacy (02/10/2020 ??4:20 PM CDT) Regina Wise RN Flex documented in this encounter Plan of Treatment Upcoming Encounters Date Type Specialty Care Team Description 05/20/2022 Lab Lab documented as of this encounter Visit Diagnoses Diagnosis Insomnia, unspecified type documented in this encounter Care Teams Triage Register Nurse Relationship Specialty Start Date End Date Froylan Louise MD PCP - General Family Practice 02/22/14 Froylan Louise MD Assigned PCP 03/13/14 2 documented as of this encounter
--- OUTSIDE RECORDS SUMMARY | 2022-05-15 22:25 | XMS_ITS | Encounter Summary ---
:1955 Author Organization [place] Address [address] [place] [address] Care Team Providers Name Role Phone Froylan Louise MD Primary Care Provider Unavailable Froylan Louise MD Unavailable Unavailable Encounter Details Date Type Department Care Team Description 06/09/2020 Orders Only [facility] Clinic Per killian history of DVT [facility] (deep vein thrombosis) [address] [place] [address] Social History Tobacco Use [...] containing 4 or more times a w [place] 05/25/2021 alcohol? How many drinks containing alcohol [...] you attend yazidi or Patient refused 2020 latter-day services? Do [...] with No / Unsure 06/09/2020 3:26 PM WAREHOUSE EXAMINER someone who was confirmed or suspected to have Coronavirus / COVID-19? documented as of this encounter Plan of Treatment Upcoming Encounters Date Type Specialty Care Team Description 05/20/2022 Lab Lab documented as of this encounter Procedures Procedure Name Priority Date/Time Associated Diagnosis Comme nts INR Routine 06/09/2020 3:21 PM Personal history of Re sults for this WAREHOUSE EXAMINER DVT (deep vein procedure are in the thrombosis) results section . documented in this encounter Results (ABNORMAL) INR (06/09/2020 3:21 PM WAREHOUSE EXAMINER) athologist Signature INR 2.30 (H) 0.86 - 1.14 06/09/2020 [place] 3:33 PM [facility] Comment: This test is intended for monitoring Cou madin therapy. ??Results are not accurate in patients with prolonged INR due to factor deficiency. Specimen Anatomical Collection Method Collection Time Receive d Time (Source) Location / / Volume Laterality Blood specimen 06/09/2020 3:21 PM 020 3:26 (specimen) WAREHOUSE EXAMINER PM WAREHOUSE EXAMINER Froylan Louise MD LAB - BLOOD ORDERABLES Performing Organization Address City/State/ZIP Code Phon e Number [facility] [address] [place] [address] documented in this encounter Visit Diagnoses Diagnosis Personal history of DVT (deep vein throm bosis) Personal history of venous thrombosis an d embolism documented in this encounter Care Teams Student Finance Specialist Relationship Specialty Start Date End Date Froylan Louise MD PCP - General Family Practice 02/22/14 Froylan Louise MD Assigned PCP 03/13/14 2 documented as of this encounter
--- OUTSIDE RECORDS SUMMARY | 2022-05-15 22:25 | XMS_ITS | Encounter Summary ---
:1955 Author Organization [place] Address [address] [place] [address] Care Team Providers Name Role Phone Froylan Louise MD Primary Care Provider Unavailable Froylan Louise MD Unavailable Unavailable Encounter Details Date Type Department Care Team Description 05/26/2020 Orders Only [facility] Per killian history of DVT [facility] (deep vein thrombosis) [address] [place] [address] Social History Tobacco Use [...] containing 4 or more times a w [place] 05/25/2021 alcohol? How many drinks containing alcohol [...] you attend episcopalian or Patient refused 2020 evangelical services? Do [...] with No / Unsure 05/26/2020 3:06 PM NUTRIENT MANAGEMENT SPECIALIST someone who was confirmed or suspected to have Coronavirus / COVID-19? documented as of this encounter Plan of Treatment Upcoming Encounters Date Type Specialty Care Team Description 05/20/2022 Lab Lab documented as of this encounter Procedures Procedure Name Priority Date/Time Associated Comments Diagnosis CAPILLARY BLOOD Routine 05/26/2020 4:50 PM Personal history of Results for this COLLECTION NUTRIENT MANAGEMENT SPECIALIST DVT (deep vein procedure are in thrombosis) the results section. INR Routine 05/26/2020 4:50 PM Personal history of Re sults for this NUTRIENT MANAGEMENT SPECIALIST DVT (deep vein procedure are in thrombosis) the results section. documented in this encounter Results Capillary Blood Collection (05/26/2020 4:50 PM NUTRIENT MANAGEMENT SPECIALIST) Patholo gist Method Time Signature Capillary Capillary 05/26/2020 [place] Blood collection 4:51 PM NUTRIENT MANAGEMENT SPECIALIST CLINICS Collection performed [place] Specimen Anatomical Collection Method Collection Time Receive d Time (Source) Location / / Volume Laterality 05/26/2020 4:50 PM 0 4:51 NUTRIENT MANAGEMENT SPECIALIST PM NUTRIENT MANAGEMENT SPECIALIST Forylan Louise MD LAB - LAB COMMUNICATION Performing Organization Address City/[facility]/ZIP Code Phon e Number [facility] [address] [place] [address] (ABNORMAL) INR (05/26/2020 4:50 PM NUTRIENT MANAGEMENT SPECIALIST) P athologist Signature INR 3.50 (H) 0.86 - 1.14 05/26/2020 [place] 5:05 PM NUTRIENT MANAGEMENT SPECIALIST [facility] Comment: This test is intended for monitoring Cou madin therapy. ??Results are not accurate in patients with prolonged INR due to factor deficiency. Specimen Anatomical Collection Method Collection Time Receive d Time (Source) Location / / Volume Laterality Blood specimen 05/26/2020 4:50 PM 020 4:51 (specimen) NUTRIENT MANAGEMENT SPECIALIST PM NUTRIENT MANAGEMENT SPECIALIST Froylan Louise MD LAB - BLOOD ORDERABLES Performing Organization Address City/[facility]/ZIP Code Phon e Number [facility] [phone] [place] [address] documented in this encounter Visit Diagnoses Diagnosis Personal history of DVT (deep vein throm bosis) Personal history of venous thrombosis an d embolism documented in this encounter Care Teams Cork Pressing Machine Operator Relationship Specialty Start Date End Date Froylan Louise MD PCP - General Family Practice 02/22/14 Froylan Louise MD Assigned PCP 03/13/14 2 documented as of this encounter
--- OUTSIDE RECORDS SUMMARY | 2022-05-15 22:26 | XMS_ITS | Encounter Summary ---
:1955 Author Organization [place] Address [address] [place] [address] Care Team Providers Name Role Phone Froylan Louise MD Primary Care Provider Unavailable Froylan Louise MD Unavailable Unavailable Encounter Details Date Type Department Care Team Description 11/03/2019 Telephone [facility] Froylan Louise Ra, MD [place] [address] [place] [address] Social History Tobacco Use [...] containing 4 or more times a w [place] 05/25/2021 alcohol? How many drinks containing alcohol [...] you attend scientologist or Patient refused 2020 anabaptist services? Do [...] been in contact with No / Unsure 10/28/2019 12:37 PM CDT someone who was confirmed or suspected to have Coronavirus / COVID-19? documented as of this encounter Miscellaneous Notes Telephone Encounter - PakMarco dias CMA - 11/04/2019 7:42 AM CDT Looks like this was complete few days ago. I refaxed the letter per original note. Called pt and informed him Marco Pak KAROL Telephone Encounter - Wendi Lindsay RN - 11/04/2019 7:33 AM CDT This was already done. See result note/letter and inform patient. Wendi Lindsay RN, BSN Telephone Encounter - Marco Pak CMA - 11/04/2019 7:32 AM CDT Routing to triage Marco Pak KAROL Telephone Encounter - Hannah Alegre - 11/03/2019 9:45 AM CDT Forms/Letter Request Name of form/letter: Release back to work Have you been seen for this request: Yes Pt stated that he is COVID-19 negative Do we have the form/letter: Yes: just need to be written When is form/letter needed by: mnoique How would you like the form/letter returned: Attn: Safety [place] Patient Notified form requests are processed in 3-5 business days:Yes Okay to leave a detailed message? 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
--- OUTSIDE RECORDS SUMMARY | 2022-05-15 22:26 | XMS_ITS | Encounter Summary ---
:1955 Author Organization [place] Address [address] [place] [address] Care Team Providers Name Role Phone Froylan Louise MD Primary Care Provider Unavailable Froylan Louise MD Unavailable Unavailable Esthela Corea RN Unavailable Unavailable So Dodd MD Primary Care Provider Froylan Louise MD Primary Care Provider Unavailable So Dodd MD Unavailable So Dodd MD Primary Care Provider Reason for Visit Reason Comments Medication Refill Encounter Details Date Type Department Care Team Description 10/01/2019 Refill [facility] Froylan Louise Ra, MD Medication Refill [address] [address] Social History Tobacco Use [...] containing 4 or more times a w [place] 05/25/2021 alcohol? How many drinks [...] you attend mosque or Patient refused 2020 anglican services? Do [...] for the very basics like Not h [place] at all 05/25/2021 food, housing, medical care, [...] been in contact with No / Unsure 09/30/2019 2:25 PM CDT someone who was confirmed or suspected to have Coronavirus / COVID-19? documented as of this encounter Plan of Treatment Upcoming Encounters Date Type Specialty Care Team Description 05/20/2022 Lab Lab documented as of this encounter Visit Diagnoses Diagnosis Acute deep vein thrombosis (DVT) of prox imal vein of both lower extremities (H) documented in this encounter Additional Health Concerns Infection Onset Date Last Indicated Resolved Time Rule Out COVID-19 10/31/2019 10/31/2019 11/01/2019 1:0 8 PM CDT documented as of this encounter Care Teams Tape Stringer Relationship Specialty Start Date End Date Froylan Louise MD PCP - General Family Practice 02/22/14 So Dodd MD PCP - General Family Medicine 01/10/22 01/17/22 [address] [place] [address] Froylan Louise MD PCP - General Family Medicine 01/18/22 So Dodd MD PCP - General Family Medicine 02/21/22 [address] [place] [address] Froylan Louise MD Assigned PCP 03/13/14 2 Esthela Corea, RN Personal Advocate & Liaison Family Medicine 10/16 (PAL) So Dodd MD Assigned PCP 01/05/22 [address] [place] [address] documented as of this encounter
--- OUTSIDE RECORDS SUMMARY | 2022-05-15 22:26 | XMS_ITS | Encounter Summary ---
:1955 Author Organization [place] Address [address] [place] [address] Care Team Providers Name Role Phone Froylan Louise MD Primary Care Provider Unavailable Forylan Louise MD Unavailable Unavailable Encounter Details Date Type Department Care Team Description 11/24/2019 Travel Social History Tobacco Use Types Packs/Day Years Used Date Smoking Tobacco: Former Cigarettes 2 25 Quit : 08/04/2006 Smokeless Tobacco: Never Comments: 2004 Alcohol Use Standard Drinks/Week Comments Yes 0 (1 standard drink = 0.6 oz pure alcoho l) 4 BEERS A WEEK Alcohol Habits Answer Date Recorded How often do you have a drink containing 4 or more times a w [place] 05/25/2021 alcohol? How many drinks containing alcohol [...] or relatives? How often do you attend pentecostalism or Patient refused 2020 sabianism services? Do you belong to any clubs or Yes 05/25/2021 organizations such as pentecostalism groups, unions, fraternal or athletic groups, or [...] been in contact with No / Unsure 11/24/2019 1:08 PM CDT someone who was confirmed or suspected to have Coronavirus / COVID-19? documented as of this encounter Plan of Treatment Upcoming Encounters Date Type Specialty Care Team Description 05/20/2022 Lab Lab documented as of this encounter Visit Diagnoses Not on filedocumented in this encounter Care Teams Sink Cutter Relationship Specialty Start Date End Date Froylan Louise MD PCP - General Family Practice 02/22/14 Froylan Louise MD Assigned PCP 03/13/14 2 documented as of this encounter
--- OUTSIDE RECORDS SUMMARY | 2022-05-15 22:26 | XMS_ITS | Encounter Summary ---
:1955 Author Organization [place] Address [address] [place] [address] Care Team Providers Name Role Phone Froylan Louise MD Primary Care Provider Unavailable Froylan Louise MD Unavailable Unavailable Reason for Visit Reason Comments Medication Refill Encounter Details Date Type Department Care Team Description 01/16/2020 Refill [facility] Froylan Louise Ra, MD Medication Refill [address] [address] Social History Tobacco Use [...] you attend adventist or Patient refused 2020 hindu services? Do [...] been in contact with No / Unsure 01/04/2020 11:07 AM CDT someone who was confirmed or suspected to have Coronavirus / COVID-19? documented as of this encounter Miscellaneous Notes Telephone Encounter - Wendi Lindsay RN - 01/17/2020 8:10 AM CDT [place] [facility] [place] Protocol. Wendi Lindsay RN, BSN documented in this encounter Plan of Treatment Upcoming Encounters Date Type Specialty Care Team Description 05/20/2022 Lab Lab documented as of this encounter Visit Diagnoses Diagnosis Lichen planus documented in this encounter Care Teams Shipping/Receiving Clerk Relationship Specialty Start Date End Date Froylan Louise MD PCP - General Family Practice 02/22/14 Froylan Louise MD Assigned PCP 03/13/14 2 documented as of this encounter
--- OUTSIDE RECORDS SUMMARY | 2022-05-15 22:26 | XMS_ITS | Encounter Summary ---
:1955 Author Organization [place] Address [address] [place] [address] Care Team Providers Name Role Phone Froylan Louise MD Primary Care Provider Unavailable Froylan Louise MD Unavailable Unavailable Reason for Visit Reason Comments Medication Refill Encounter Details Date Type Department Care Team Description 10/04/2019 Refill [facility] Froylan Louise Ra, MD Medication Refill [address] [address] Social History Tobacco Use [...] containing 4 or more times a w hab[place]olel 05/25/2021 alcohol? How many drinks containing alcohol [...] you attend bahai or Patient refused 2020 yarsani services? Do [...] Telephone Encounter - Wendi Lindsay RN - 10/04/2019 1:48 PM CDT RX monitoring program ([place]) reviewed: PUTTY AND PATCH WORKER reviewed- no concerns [place] profile: [email or web address] Controlled Substance Refill Request for Ambien Problem List Complete: No PROVIDER TO CONSIDER COMPLETION OF PROBLEM LIST AND OVERVIEW/CONTROLLED SUBSTANCE AGREEMENT Last Written Prescription Date: 04/30/2019 Last Fill Quantity: 30, # refills: 0 Last Office Visit with [facility] primary care provider: 06/10/2019 Future Office visit: Controlled substance agreement: Encounter-Level CSA: There are no encounter-level csa. Patient-Level CSA: There are no patient-level csa. Last Urine Drug Screen: No results found for: CDAUT, No results found for: COMDAT, No results found for: THC13, PCP13, COC13, MAMP13, OPI13, AMP13, BZO13, TCA13, MTD13, BAR13, OXY13, PPX13, BUP13 Processing: Rx to be electronically transmitted to pharmacy by provider [email or web address] PUTTY AND PATCH WORKER checked in past 3 months? Yes 10/04/2019 documented in this encounter Plan of Treatment Upcoming Encounters Date Type Specialty Care Team Description 05/20/2022 Lab Lab documented as of this encounter Visit Diagnoses Diagnosis Insomnia, unspecified type documented in this encounter Care Teams Technology Methodology Consultant Relationship Specialty Start Date End Date Froylan Louise MD PCP - General Family Practice 02/22/14 Froylan Louise MD Assigned PCP 03/13/14 2 documented as of this encounter
--- OUTSIDE RECORDS SUMMARY | 2022-05-15 22:26 | XMS_ITS | Encounter Summary ---
:1955 Author Organization [place] Address [address] [place] [address] Care Team Providers Name Role Phone Froylan Louise MD Primary Care Provider Unavailable Froylan Louise MD Unavailable Unavailable Encounter Details Date Type Department Care Team Description 09/16/2019 Orders Only [facility] current use of anticoagulants with INR goal of 2.0-3.0; [facility] DVT (deep venous thrombosis) (H) [address] [place] [address] Social History Tobacco Use [...] containing 4 or more times a w [place] 05/25/2021 alcohol? How many drinks containing [...] you attend protestant or Patient refused 2020 rastafari services? Do [...] been in contact with No / Unsure 09/16/2019 3:41 PM CDT someone who was confirmed or suspected to have Coronavirus / COVID-19? documented as of this encounter Plan of Treatment Upcoming Encounters Date Type Specialty Care Team Description 05/20/2022 Lab Lab documented as of this encounter Procedures Procedure Name Priority Date/Time Associated Diagnosis Comme nts INR Routine 09/16/2019 3:40 PM termite control servicer current use of Results for this CDT anticoagulants with INR proc edure are in goal of 2.0-3.0 the results DVT (deep venous section. thrombosis) (H) documented in this encounter Results (ABNORMAL) INR (09/16/2019 3:40 PM CDT) P athologist Signature INR 3.40 (H) 0.86 - 1.14 09/16/2019 [place] 3:51 PM CDT [facility] Comment: This test is intended for monitoring Cou madin therapy. ??Results are not accurate in patients with prolonged INR due to factor deficiency. Specimen Anatomical Collection Method Collection Time Receive d Time (Source) Location / / Volume Laterality Blood specimen 09/16/2019 3:40 PM 020 3:45 (specimen) CDT PM CDT Froylan Louise MD LAB - BLOOD ORDERABLES Performing Organization Address City/State/ZIP Code Phon e Number [facility] [address] [place] [address] documented in this encounter Visit Diagnoses Diagnosis detention current use of anticoagulants with INR goal of 2.0-3.0 DVT (deep venous thrombosis) (H) Acute venous embolism and thrombosis of unspecified deep vessels of lower extremity documented in this encounter Care Teams Market Researcher Relationship Specialty Start Date End Date Froylan Louise MD PCP - General Family Practice 02/22/14 Froylan Louise MD Assigned PCP 03/13/14 2 documented as of this encounter
--- OUTSIDE RECORDS SUMMARY | 2022-05-15 22:26 | XMS_ITS | Encounter Summary ---
:1955 Author Organization [facility] Address [address] [place] [address] Care Team Providers Name Role Phone Froylan Louise MD Primary Care Provider Unavailable Froylan Louise MD Unavailable Unavailable Encounter Details Date Type Department Care Team Description 01/04/2020 Anticoagulation Therapy [facility], Chronic deep vein thrombosis (DVT) of lower extremity, unspecified laterality, unspecified vein (H); Visit Clinic Jonah Conrad RN termite exterminator helper current use of ant icoagulant therapy [id number] [place] [address] Social History Tobacco Use Types Packs/Day Years Used Date Smoking Tobacco: Former Cigarettes 2 25 Quit : 08/04/2006 Smokeless Tobacco: Never Comments: 2004 Alcohol Use Standard Drinks/Week Comments Yes 0 (1 standard drink = 0.6 oz pure alcoho l) 4 BEERS A WEEK Alcohol Habits Answer Date Recorded How often do you have a drink containing 4 or more times a w [place] 05/25/2021 alcohol? How many drinks containing alcohol [...] you attend jain or Patient refused 2020 zoroastrian services? Do [...] encounter Progress Notes Diana Nielsen RN - 01/04/2020 12:18 PM CDT ANTICOAGULATION FOLLOW-UP CLINIC VISIT Patient Name: Virgil Christine Date: 01/04/2020 Contact Type: Telephone SUBJECTIVE: Patient Findings Positives: Change in health (RA flare up), Change in medications (will be starting prednisone soon) Comments: Called patient to discuss today's INR results: Patient went to Dr. Shelton, outside [facility], this morning, starting prednisone taper x10 days. Concurrent use of PREDNISONE and WARFARIN may result in increased risk of bleeding or diminished effects of warfarin. Also starting Humira (no noted interaction with warfarin noted in [employer]rom[employer]. He has not started either one of these drugs, they are going through prior authorization. Discussed with patient that inflammation can lead to a slightly increased INR, but one he starts the prednisone he needs to schedule a lab-only INR, becausewe usually see a big change d/t this drug-drug interaction. Otherwise, no changes or concerns. 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 No other changes. Patient does not eat many green veggies, so for today will cut warfarin dose in half, then he will resume maintenance dosing until next INR check (about 3 days after starting prednisone). He asked that we set a reminder in about 1 week, so even though heis not scheduled for INR at this time, set next INR date for 01/10/20 and high priority so wecan follow-up if he has started the prednisone and make sure he is scheduled. Diana Garcia RN [facility] [place] Clinical Outcomes Comments: Called patient to discuss today's INR results: Patient went to Dr. Shelton, outside [facility], this morning, starting prednisone taper x10 days. Concurrent use of PREDNISONE and WARFARIN may result in increased risk of bleeding or diminished effects of warfarin. Also starting Humira (no noted interaction with warfarin noted in Micromedex. He has not started either one of these drugs, they are going through prior authorization. Discussed with patient that inflammation can lead to a slightly increased INR, but one he starts the prednisone he needs to schedule a lab-only INR, becausewe usually see a big change d/t this drug-drug interaction. Otherwise, no changes or concerns. 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 No other changes. Patient does not eat many green veggies, so for today will cut warfarin dose in half, then he will resume maintenance dosing until next INR check (about 3 days after starting prednisone). He asked that we set a reminder in about 1 week, so even though heis not scheduled for INR at this time, set next INR date for 01/10/20 and high priority so wecan follow-up if he has started the prednisone and make sure he is scheduled. Diana Garcia RN [facility] [place] OBJECTIVE Recent labs: (last 7 days) 01/04/20 1108 INR 3.20* ASSESSMENT / PLAN INR assessment SUPRA Recheck INR In: 1 WEEK pt will schedule after starting prednisone INR Location Clinic Anticoagulation Summary As of 01/04/2020 INR goal: 2.0-3.0 TTR: 68.8 % (1 y) INR used for dosin.20! (01/04/2020) Warfarin maintenance plan: 5 mg (5 mg x 1) every Wed; 7.5 mg (7.5 mg x 1) all other days Full warfarin instructions: 01/03: 3.75 mg; Otherwise 5 mg every Wed; 7.5 mg all other days Weekly warfarin total: 50 mg Plan last modified: Hilda Burch RN (05/14/2019) Next INR check: 01/10/2020 Priority: High Target end date: 09/30/2020 Indications Chronic deep vein thrombosis (DVT) of lower extremity unspecified laterality unspecified vein (H) [I82.509] Long-term (current) use of anticoagulants [Z79.01] [Z79.01] Anticoagulation Episode Summary INR check location: Preferred lab: Send INR reminders to: [facility]ERRER[facility] Comments: Anticoagulation Care Providers Provider Role Specialty Phone number Froylan Louise MD Referring [facility] [phone] See the Encounter Report to view Anticoagulation [...] herapy documented in this encounter Care Teams Civil Attorney Relationship Specialty Start Date End Date Froylan Louise MD PCP - General Family Practice 02/22/14 Froylan Louise MD Assigned PCP 03/13/14 2 documented as of this encounter
--- OUTSIDE RECORDS SUMMARY | 2022-05-15 22:26 | XMS_ITS | Encounter Summary ---
:1955 Author Organization [place] Address [address] [place] [address] Care Team Providers Name Role Phone Froylan Louise MD Primary Care Provider Unavailable Froylan Louise MD Unavailable Unavailable Reason for Visit Reason Onset Date Comments INR Followup 09/16/2019 Encounter Details Date Type Department Care Team Description 09/16/2019 Telephone [facility] Froylan Louise Ra, MD INR Followup [address] [address] Social History Tobacco Use [...] you attend rastafari or Patient refused 2020 orthodox services? Do [...] this encounter Miscellaneous Notes Telephone Encounter - Estefanía Romano RN - 09/16/2019 5:11 PM CDT ANTICOAGULATION MANAGEMENT Patient Name: Noble Christine Date: 09/16/2019 ASSESSMENT /SUBJECTIVE: Today's INR result of 3.4 is supratherapeutic. Goal INR of 2.0-3.0 ??? Warfarin dose taken: Warfarin taken as previously instructed ??? Diet: No new diet changes affecting INR ??? Medication changes/ interactions: No new medications/supplements affecting INR ??? Previous INR: Therapeutic ??? S/S of bleeding or thromboembolism: No ??? New injury or illness: No ??? Upcoming surgery, procedure or cardioversion: No ??? Additional findings: none PLAN: Spoke with Noble regarding INR result and instructed: Warfarin Dosing Instructions: Did discuss a dose change with patient, but he is reluctant and last INR was in range. Therefore instructed to do a partial hold jo ann Galdamez 09/15 take 5mg then continue your current warfarin dose of 5 mg every Wed; 7.5 mg all other days Instructed patient to follow up no later than: 2 weeks Lab visit scheduled Education provided: Yes: importance of consistent Vit K, significance of current result, monitor fors/sx of bleeding Noble verbalizes understanding and agrees to warfarin dosing plan. Instructed to call the Anticoagulation Clinic for any changes, questions or concerns. (#[phone]) OBJECTIVE: INR Date Value Ref Range Status 09/16/2019 3.40 (H) 0.86 - 1.14 Final Comment: This test is intended for monitoring Coumadin therapy. Results are not accurate in patients with prolonged INR due to factor deficiency. Chromogenic Factor 10 Date Value Ref Range Status 08/27/2018 34 (L) 70 - 130 % Final Comment: Therapeutic Range: A Chromogenic Factor 10 level of approximately 20-40% inversely correlates with an INR of 2-3 for patients receiving Warfarin. Chromogenic Factor 10 levels below 20% indicate an INR greater than 3 and levels above 40% indicate an INR less than 2. Anticoagulation Summary As of 09/16/2019 INR goal: 2.0-3.0 TTR: 73.3 % (1 y) INR used for dosin.40! (09/16/2019) Warfarin maintenance plan: 5 mg (5 mg x 1) every Wed; 7.5 mg (7.5 mg x 1) all other days Full warfarin instructions: 09/15: 5 mg; Otherwise 5 mg every Wed; 7.5 mg all other days Weekly warfarin total: 50 mg Plan last modified: Hilda Burch RN (05/14/2019) Next INR check: 09/30/2019 Priority: Maintenance Target end date: Indications Long-term (current) use of anticoagulants [Z79.01] [Z79.01] Embolism and thrombosis (H) (Resolved) [I74.9] Anticoagulation Episode Summary INR check location: Preferred lab: Send INR reminders to: [facility] Comments: documented in this encounter Plan of Treatment Upcoming Encounters Date Type Specialty Care Team Description 05/20/2022 Lab Lab documented as of this encounter Visit Diagnoses Diagnosis 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
--- OUTSIDE RECORDS SUMMARY | 2022-05-15 22:26 | XMS_ITS | Encounter Summary ---
:1955 Author Organization [place] Address [facility] [place] [address] Care Team Providers Name Role Phone Froylan Louise MD Primary Care Provider Unavailable Froylan Louise MD Unavailable Unavailable Encounter Details Date Type Department Care Team Description 01/04/[address] [facility] Froylan Louise, Pers onal history of Clinic Chhaya VILLASEÑOR DVT (deep vein [address] [facility] thrombosis) (Primary [place], [place] Dx) [id number] Social History Tobacco Use Types Packs/Day Years [...] you attend zoroastrianism or Patient refused 2020 protestant services? Do [...] history of DVT (deep vein throm bosis) - Primary Personal history of venous thrombosis an d embolism documented in this encounter Care Teams Chemical Plant Manager Relationship Specialty Start Date End Date Froylan Louise MD PCP - General Family Practice 02/22/14 Froylan Louise MD Assigned PCP 03/13/14 2 documented as of this encounter
--- OUTSIDE RECORDS SUMMARY | 2022-05-15 22:26 | XMS_ITS | Encounter Summary ---
:1955 Author Organization [place] Address [address] [place] [address] Care Team Providers Name Role Phone Froylan Louise MD Primary Care Provider Unavailable Froylan Louise MD Unavailable Unavailable Esthela Corea RN Unavailable Unavailable So Dodd MD Primary Care Provider Froylan Louise MD Primary Care Provider Unavailable So Dodd MD Unavailable So Dodd MD Primary Care Provider Reason for Visit Reason Comments Medication Refill Encounter Details Date Type Department Care Team Description 10/28/2019 Refill [facility] Froylan Louise Ra, MD Medication Refill [address] [address] Social History Tobacco Use [...] containing 4 or more times a w cabaz[place] 05/25/2021 alcohol? How many drinks containing alcohol [...] or relatives? How often do you attend mormonism or Patient refused 2020 rastafari services? Do you belong to any clubs or Yes 05/25/2021 organizations such as mormonism groups, unions, fraternal or athletic groups, or [...] this encounter Miscellaneous Notes Telephone Encounter - Monica Farley RN - 10/28/2019 12:38 PM CDT Patient has appt scheduled for 10/28/19 documented in this encounter Plan of Treatment [...] documented as of this encounter Care Teams Recreation Engineer Relationship Specialty Start Date End Date Froylan Louise MD PCP - General Family Practice 02/22/14 So Dodd MD PCP - General Family Medicine 01/10/22 01/17/22 [address] [place] [address] Froylan Louise MD PCP - General Family Medicine 01/18/22 So Dodd MD PCP - General Family Medicine 02/21/22 [address] [place] [address] Froylan Louise MD Assigned PCP 03/13/14 2 Esthela Corea RN Personal Advocate & Liaison Family Medicine 10/16 (PAL) So Dodd MD Assigned PCP 01/05/22 [address] [place] [address] documented as of this encounter
--- OUTSIDE RECORDS SUMMARY | 2022-05-15 22:26 | XMS_ITS | Encounter Summary ---
:1955 Author Organization [place] Address [address] [place] [address] Care Team Providers Name Role Phone Froylan Louise MD Primary Care Provider Unavailable Froylan Louies MD Unavailable Unavailable Encounter Details Date Type Department Care Team Description 01/04/2020 Travel Social History Tobacco Use Types Packs/Day Years Used Date Smoking Tobacco: Former Cigarettes 2 25 Quit : 08/04/2006 Smokeless Tobacco: Never Comments: 2004 Alcohol Use Standard Drinks/Week Comments Yes 0 (1 standard drink = 0.6 oz pure alcoho l) 4 BEERS A WEEK Alcohol Habits Answer Date Recorded How often do you have a drink containing 4 or more times a w [place] 05/25/2021 alcohol? How many drinks containing alcohol [...] you attend spiritism or Patient refused 2020 caodaism services? Do you belong to any clubs [...] on filedocumented in this encounter Care Teams Trimmer And Reinforcer Relationship Specialty Start Date End Date Froylan Louise MD PCP - General Family Practice 02/22/14 Froylan Louise MD Assigned PCP 03/13/14 2 documented as of this encounter
--- OUTSIDE RECORDS SUMMARY | 2022-05-15 22:26 | XMS_ITS | Encounter Summary ---
:1955 Author Organization [place] Address [address] [place] [address] Care Team Providers Name Role Phone Froylan Louise MD Primary Care Provider Unavailable Froylan Louise MD Unavailable Unavailable Reason for Visit Reason Comments Suspected Covid Encounter Details Date Type Department Care Team Description 10/31/2019 Office Visit [facility] Urgent Sugar pected 2019 Novel Care [place] Coronavirus Infection [address] (Primary Dx) [place] [address] Social History Tobacco Use Types Packs/Day Years Used Date Smoking Tobacco: Former Cigarettes 2 25 Quit : 08/04/2006 Smokeless Tobacco: Never Comments: 2005 Alcohol Use Standard Drinks/Week Comments Yes 0 (1 standard drink = 0.6 oz pure alcoho l) 4 BEERS A WEEK Alcohol Habits Answer Date Recorded How often do you have a drink containing 4 or more times a w [place] 05/25/2021 alcohol? How many drinks containing alcohol [...] you attend taoist or Patient refused 2020 yazidi services? Do [...] documented as of this encounter Progress Notes Annia Jane - 10/31/2019 10:00 AM CDT . documented in this encounter Plan of Treatment Upcoming Encounters Date Type Specialty Care Team Description 05/20/2022 Lab Lab documented as of this encounter Procedures Procedure Name Priority Date/Time Associated Diagnosis Comme nts COVID-19 VIRUS Routine 10/31/2019 9:50 AM Suspected 2019 Novel Results for this (CORONAVIRUS) BY CDT Coronavirus procedure a re in PCR Infection the results section. documented in this encounter Results COVID-19 Virus (Coronavirus) by PCR Nasopharyngeal (10/31/2019 9:50 AM CDT) [facility] Method Time Signature COVID-19 Nasopharyngeal 10/31/2019 [place] Virus PCR to 9:55 AM CDT [facility] Source [facility] COVID-19 Not Detected 11/01/2019 [facility] Virus PCR to 1:07 PM CDT [facility] Comment: Collection of multiple specimens from th e same patient may be necessary to detect the virus. The possibility of a f alse negative should be considered if the patient's recent exposure or clinica l presentation suggests 2019 nCOV infection and diagnostic tests for other causes of illness are negative. Repeat testing may be considered in this setting. Viral RNA was extracted via a validated method and subsequently underwent single step reverse transcriptase-real t mohini polymerase chain reaction using primers to the CDC specified N1,N2 gene targets of CoV2 and human PIANO TEACHER as an internal control. A negative result does not rule out the presence of real-time PCR inhibitors in the specimen or COVID-19 RNA in shravan ntrations below the limit of detection of the assay. The possibility of a fals e negative should be considered if the patients recent exposure or clinical pr esentation suggests COVID-19. Additional testing or repeat testing req uires consultation with the laboratory. Nasopharyngeal specimen is the preferred choice for swab-based SARS CoV2 testing. When collection of a nasopharyn geal swab is not possible the following are acceptable alternatives: an oropharyngeal (OP) specimen collected by a healthcare professional, or a nasal mid-turbinate (NMT) swab collected by a healthcare professional or by onsite self-collection (using a flocked tapered swab), or an anterior nares specimen collected by a healthcare profe ssional or by onsite self-collection (using a round foam swab). (Centers for Disease Control) Testing performed by [facility], Room 1-210, [address] [place] [address], [place], [place]? [address].? This test was developed and its performance characteristics determined b y the [facility]. It has not been cleared or appr arturo by the FDA. The laboratory is regulated under the Cl inical Laboratory Improvement Amendments of 1988 (CLIA-88) as qualifie d to perform high-complexity testing. This test is used for clinical purposes. It should not be regarded as investigational or for research. Specimen (Source) Anatomical Collection Method Collection Time Re ceived Time Location / / Volume Laterality Specimen from 10/31/2019 9:50 10/31/2019 nasopharyngeal AM CDT 9:55 AM CDT structure (specimen) Sachin Sifuentes MD LAB - MICRO GENERAL ORDERABL ES Performing Organization Address City/State/ZIP Code Phon e Number [address] [address] [facility] Room: 1-[address] [address] [place] documented in this encounter Visit Diagnoses Diagnosis Suspected 2018 novel coronavirus infecti on - Primary documented in this encounter Additional Health Concerns Infection Onset Date Last Indicated Resolved Time Rule Out COVID-19 10/31/2019 10/31/2019 11/01/2019 1:0 8 PM CDT documented as of this encounter Care Teams Equipment Technician Relationship Specialty Start Date End Date Froylan Louise MD PCP - General Family Practice 02/22/14 Froylan Louise MD Assigned PCP 03/13/14 2 documented as of this encounter
--- OUTSIDE RECORDS SUMMARY | 2022-05-15 22:26 | XMS_ITS | Encounter Summary ---
:1955 Author Organization [place] Address [address] [place] [address] Care Team Providers Name Role Phone Froylan Louise MD Primary Care Provider Unavailable Froylan Louise MD Unavailable Unavailable Reason for Visit Reason Onset Date Comments Anticoagulation 01/18/2020 due for INR Encounter Details Date Type Department Care Team Description 01/18/2020 Telephone [facility] Froylan Louise (due for [facility] [place] MD [place] INR) [address] [place] [address] Social History Tobacco Use Types [...] containing 4 or more times a w qawalangin 05/25/2021 alcohol? How many drinks containing alcohol [...] you attend pentecostalism or Patient refused 2020 jehovah's witness services? [...] Telephone Encounter - Diana Nielsen RN - 01/18/2020 1:38 PM CDT Called patient to inquire if he ever started the prednisone for his gout and to help schedule next INR : Patient states he never started the Humira but he is on his 2nd week of prednisone. Advised patient he needs to have INR checked today, if possible. Scheduled patient for lab at 3:15 today. Diana Garcia RN [facility] [place] documented in this encounter Plan of Treatment Upcoming Encounters Date Type Specialty Care Team Description 05/20/2022 Lab Lab documented as of this encounter Visit Diagnoses Not on filedocumented in this encounter Care Teams Medical Office Technology Instructor Relationship Specialty Start Date End Date Froylan Louise MD PCP - General Family Practice 02/22/14 Froylan Louise MD Assigned PCP 03/13/14 2 documented as of this encounter
--- OUTSIDE RECORDS SUMMARY | 2022-05-15 22:26 | XMS_ITS | Encounter Summary ---
:1955 Author Organization [place] Address [address] [place] [address] Care Team Providers Name Role Phone Froylan Louise MD Primary Care Provider Unavailable Froylan Louise MD Unavailable Unavailable Reason for Visit Reason Comments Medication Refill Encounter Details Date Type Department Care Team Description 12/27/2019 Refill [facility] Froylan Louise Ra, MD Medication Refill [address] [address] Social History Tobacco Use [...] you attend jew or Patient refused 2020 anglican services? Do [...] Telephone Encounter - Wendi Lindsay RN - 12/27/2019 9:46 AM CDT Routing refill request to provider for review/approval because: Drug not on the [facility] refill protocol Wendi Lindsay RN, BSN documented in this encounter Plan of Treatment Upcoming Encounters Date Type Specialty Care Team Description 05/20/2022 Lab Lab documented as of this encounter Visit Diagnoses Diagnosis H/O ulcerative colitis Personal history of other diseases of di gestive system documented in this encounter Care Teams Process Laboratory Specialist Relationship Specialty Start Date End Date Froylan Louise MD PCP - General Family Practice 02/22/14 Froylan Louise MD Assigned PCP 03/13/14 2 documented as of this encounter
--- OUTSIDE RECORDS SUMMARY | 2022-05-15 22:26 | XMS_ITS | Encounter Summary ---
:1955 Author Organization [place] Address [facility] [place] [address] Care Team Providers Name Role Phone Froylan Louise MD Primary Care Provider Unavailable Froylan Louise MD Unavailable Unavailable Encounter Details Date Type Department Care Team Description 09/30/2019 Anticoagulation Therapy [facility] current use of anticoagulant therapy (Primary Dx); Visit Clinic Mendoza Burks RN Chronic deep vein thrombosis (DVT) of lower extremity, unspecified laterality, unspecified vein (H) [address] [facility] [address] [place] [address] Social History Tobacco Use Types Packs/Day Years [...] you attend yarsanism or Patient refused 2020 congregational services? Do [...] documented as of this encounter Progress Notes Kimmie Vegas RN - 09/30/2019 2:56 PM CDT ANTICOAGULATION FOLLOW-UP Patient Name: Virgil Christine Date: 09/30/2019 Contact Type: Telephone SUBJECTIVE: Patient Findings Comments: The patient was assessed for diet, medication, missed or extra doses, bruising or bleeding, with no problem findings. INR is therapeutic today. Patient will continue same maintenance dose. Follow up in 3 weeks. Clinical Outcomes Comments: The patient was assessed for diet, medication, missed or extra doses, bruising or bleeding, with no problem findings. INR is therapeutic today. Patient will continue same maintenance dose. Follow up in 3 weeks. OBJECTIVE INR Date Value Ref Range Status 09/30/2019 2.80 (H) 0.86 - 1.14 Final Comment: This [...] 40% indicate an INR less than 2. ASSESSMENT / PLAN INR assessment THER Recheck INR In: 3 WEEKS INR Location Clinic lab Anticoagulation Summary As of 09/30/2019 INR goal: 2.0-3.0 TTR: 71.6 % (1 y) INR used for dosin.80 (09/30/2019) Warfarin maintenance plan: 5 mg (5 mg x 1) every Wed; 7.5 mg (7.5 mg x 1) all other days Full warfarin instructions: 5 mg every Wed; 7.5 mg all other days Weekly warfarin total: 50 mg No change documented: Kimmie Vegas, RN Plan last modified: Hilda Burch RN (05/14/2019) Next INR check: 10/22/2019 Priority: Maintenance Target end date: Indications Long-term (current) use of anticoagulants [Z79.01] [Z79.01] Embolism and thrombosis (H) (Resolved) [I74.9] Anticoagulation Episode Summary INR check location: Preferred lab: Send INR reminders to: STEPHY HERRERA Comments: See the Encounter Report to view Anticoagulation Flowsheet and Dosing Calendar (Go to Encounters tabin chart review, and find the Anticoagulation Therapy Visit) INR is therapeutic today. Patient will continue same maintenance dose. Follow up in 3 weeks. 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
--- OUTSIDE RECORDS SUMMARY | 2022-05-15 22:26 | XMS_ITS | Encounter Summary ---
:1955 Author Organization [place] Address [address] [place] [address] Care Team Providers Name Role Phone Froylan Louise MD Primary Care Provider Unavailable Froylan Louise MD Unavailable Unavailable Encounter Details Date Type Department Care Team Description 01/04/2020 Orders Only [facility] Wily g term current use of anticoagulants with INR goal of 2.0-3.0; [facility] DVT (deep venous thrombosis) (H) [address] [place] [address] Social History Tobacco Use [...] containing 4 or more times a w qu[place] 05/25/2021 alcohol? How many drinks containing alcohol [...] you attend episcopal or Patient refused 2020 baptism services? Do [...] Associated Diagnosis Comme nts CAPILLARY BLOOD Routine 01/04/2020 11:08 intermediate project manager current use Results for this COLLECTION AM CDT of anticoagulants with proce dure are in INR goal of 2.0-3.0 the resu lts section. INR Routine 01/04/2020 11:08 [facility] current use Re sults for this AM CDT of anticoagulants with proce dure are in INR goal of 2.0- 3.0 the results DVT (deep venous section. thrombosis) (H) documented in this encounter Results Capillary Blood Collection (01/04/2020 11:08 AM CDT) [facility] gist Method Time Signature Capillary Capillary 01/04/2020 [place] Blood collection 11:09 AM CDT CLINICS Collection performed [place] Specimen Anatomical Collection Method Collection Time Receive d Time (Source) Location / / Volume Laterality 01/04/2020 11:08 01/04/2020 AM CDT 11:09 AM CDT Froylan Louise MD LAB - LAB COMMUNICATION Performing Organization Address City/[facility]/ZIP Code Phon e Number [facility] [id number] [place] [address] (ABNORMAL) INR (01/04/2020 11:08 AM CDT) athologist Signature INR 3.20 (H) 0.86 - 1.14 01/04/2020 [place] 11:24 AM CDT [facility] Comment: This test is intended for monitoring Cou madin therapy. ??Results are not accurate in patients with prolonged INR due to factor deficiency. Specimen Anatomical Collection Method Collection Time Receive d Time (Source) Location / / Volume Laterality Blood specimen 01/04/2020 11:08 0 (specimen) AM CDT 11:09 AM CDT Froylan Louise MD LAB - BLOOD ORDERABLES Performing Organization Address City/[facility]/ZIP Code Phon e Number [facility] [address] [place] [address] documented in this encounter Visit Diagnoses Diagnosis intermediate project manager current use of anticoagulants with INR goal of 2.0-3.0 DVT (deep venous thrombosis) (H) Acute venous embolism and thrombosis of unspecified deep vessels of lower extremity documented in this encounter Care Teams Floorworker Relationship Specialty Start Date End Date Froylan Louise MD PCP - General Family Practice 02/22/14 Froylan Louise MD Assigned PCP 03/13/14 2 documented as of this encounter
--- OUTSIDE RECORDS SUMMARY | 2022-05-15 22:26 | XMS_ITS | Encounter Summary ---
:1955 Author Organization [place] Address [address] [place] [address] Care Team Providers Name Role Phone Froylan Louise MD Primary Care Provider Unavailable Froylan Louise MD Unavailable Unavailable Encounter Details Date Type Department Care Team Description 10/28/2019 Travel Social History Tobacco Use Types Packs/Day [...] you attend amish or Patient refused 2020 faith services? Do [...] on filedocumented in this encounter Care Teams Student Development Dean Relationship Specialty Start Date End Date Froylan Louise MD PCP - General Family Practice 02/22/14 Froylan Louise MD Assigned PCP 03/13/14 2 documented as of this encounter
--- OUTSIDE RECORDS SUMMARY | 2022-05-15 22:26 | XMS_ITS | Encounter Summary ---
:1955 Author Organization [place] Address [address] [place] [address] Care Team Providers Name Role Phone Froylan Louise MD Primary Care Provider Unavailable Froylan Louise MD Unavailable Unavailable Encounter Details Date Type Department Care Team Description 11/24/2019 Orders Only [facility] Wily g term current use of anticoagulants with INR goal of 2.0-3.0; [facility] DVT (deep venous thrombosis) (H) [address] [place] [address] Social History Tobacco Use [...] you attend sabianist or Patient refused 2020 mormon services? 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 INR Routine 11/24/2019 1:09 PM alf current use Results for this CDT of anticoagulants with proce dure are in INR goal of 2.0- 3.0 the results DVT (deep venous section. thrombosis) (H) documented in this encounter Results Capillary Blood Collection (11/24/2019 1:09 PM CDT) [facility] gist Method Time Signature Capillary Capillary 11/24/2019 [place] Blood collection 1:10 PM CDT CLINICS Collection [facility] Specimen Anatomical Collection Method Collection Time Receive d Time (Source) Location / / Volume Laterality 11/24/2019 1:09 PM 0 1:10 CDT PM CDT Froylan Louise MD LAB - LAB COMMUNICATION Performing Organization Address City/[facility]/ZIP Code Phon e Number [facility] [address] [place] [address] (ABNORMAL) INR (11/24/2019 1:09 PM CDT) P athologist Signature INR 2.40 (H) 0.86 - 1.14 11/24/2019 [place] 1:23 PM CDT [facility] Comment: This test is intended for monitoring Cou madin therapy. ??Results are not accurate in patients with prolonged INR due to factor deficiency. Specimen Anatomical Collection Method Collection Time Receive d Time (Source) Location / / Volume Laterality Blood specimen 11/24/2019 1:09 PM 020 1:10 (specimen) CDT PM CDT Froylan Louise MD LAB - BLOOD ORDERABLES Performing Organization Address City/[facility]/ZIP Code Phon e Number [facility] [address] [place] [address] documented in this encounter Visit Diagnoses Diagnosis alf current use of anticoagulants with INR goal of 2.0-3.0 DVT (deep venous thrombosis) (H) Acute venous embolism and thrombosis of unspecified deep vessels of lower extremity documented in this encounter Care Teams Leather Crafter Relationship Specialty Start Date End Date Froylan Louise MD PCP - General Family Practice 02/22/14 Froylan Louise MD Assigned PCP 03/13/14 2 documented as of this encounter
--- OUTSIDE RECORDS SUMMARY | 2022-05-15 22:26 | XMS_ITS | Encounter Summary ---
:1955 Author Organization [place] Address [address] [place] [address] Care Team Providers Name Role Phone Froylan Louise MD Primary Care Provider Unavailable Froylan Louise MD Unavailable Unavailable Encounter Details Date Type Department Care Team Description 09/30/2019 Orders Only [facility] Wily g term current use of anticoagulants with INR goal of 2.0-3.0; [facility] DVT (deep venous thrombosis) (H) [address] [place] [address] Social History Tobacco Use [...] you attend uatsdin or Patient refused 2020 orthodox services? Do [...] Date/Time Associated Diagnosis Comme nts INR Routine 09/30/2019 2:24 PM portfolio mgr current use of Results for this CDT anticoagulants with INR proc edure are in goal of 2.0-3.0 the results DVT (deep venous section. thrombosis) (H) documented in this encounter Results (ABNORMAL) INR (09/30/2019 2:24 PM CDT) P athologist Signature INR 2.80 (H) 0.86 - 1.14 09/30/2019 [place] 2:37 PM CDT [facility] Comment: This test is intended for monitoring Cou madin therapy. ??Results are not accurate in patients with prolonged INR due to factor deficiency. Specimen Anatomical Collection Method Collection Time Receive d Time (Source) Location / / Volume Laterality Blood specimen 09/30/2019 2:24 PM 020 2:29 (specimen) CDT PM CDT Froylan Louise MD LAB - BLOOD ORDERABLES Performing Organization Address City/State/ZIP Code Phon e Number [facility] [id number] [place] [address] documented in this encounter Visit Diagnoses Diagnosis portfolio mgr current use of anticoagulants with INR goal of 2.0-3.0 DVT (deep venous thrombosis) (H) Acute venous embolism and thrombosis of unspecified deep vessels of lower extremity documented in this encounter Care Teams Sap Hana Developer Relationship Specialty Start Date End Date Froylan Louise MD PCP - General Family Practice 02/22/14 Froylan Louise MD Assigned PCP 03/13/14 2 documented as of this encounter
--- OUTSIDE RECORDS SUMMARY | 2022-05-15 22:26 | XMS_ITS | Encounter Summary ---
:1955 Author Organization [place] Address [address] [place] [address] Care Team Providers Name Role Phone Froylan Louise MD Primary Care Provider Unavailable Froylan Louise MD Unavailable Unavailable Encounter Details Date Type Department Care Team Description 09/16/2019 Travel Social History Tobacco Use Types Packs/Day Years Used Date Smoking Tobacco: Former Cigarettes 2 25 Quit : 08/04/2006 Smokeless Tobacco: Never Comments: 2004 Alcohol Use Standard Drinks/Week Comments Yes 0 (1 standard drink = 0.6 oz pure alcoho l) 4 BEERS A WEEK Alcohol Habits Answer Date Recorded How often do you have a drink containing 4 or more times a w [place] 05/25/2021 alcohol? How many drinks containing alcohol [...] you attend hindu or Patient refused 2020 yarsani services? Do [...] on filedocumented in this encounter Care Teams Correspondence Section Supervisor Relationship Specialty Start Date End Date Froylan Louise MD PCP - General Family Practice 02/22/14 Froylan Louise MD Assigned PCP 03/13/14 2 documented as of this encounter
--- OUTSIDE RECORDS SUMMARY | 2022-05-15 22:26 | XMS_ITS | Encounter Summary ---
:1955 Author Organization [place] Address [address] [place] [address] Care Team Providers Name Role Phone Froylan Louise MD Primary Care Provider Unavailable Froylan Louise MD Unavailable Unavailable Encounter Details Date Type Department Care Team Description 01/18/2020 Orders Only [facility] Per killian history of DVT [facility] (deep vein thrombosis) [address] [place] [address] Social History Tobacco Use [...] containing 4 or more times a w [place] 05/25/2021 alcohol? How many drinks containing alcohol [...] you attend nondenominational or Patient refused 2020 alevism services? Do [...] Date/Time Associated Comments Diagnosis CAPILLARY BLOOD Routine 01/18/2020 3:33 PM Personal history of Results for this COLLECTION CDT DVT (deep vein procedure are in thrombosis) the results section. INR Routine 01/18/2020 3:33 PM Personal history of Re sults for this CDT DVT (deep vein procedure are in thrombosis) the results section. documented in this encounter Results Capillary Blood Collection (01/18/2020 3:33 PM CDT) [facility] gist Method Time Signature Capillary Capillary 01/18/2020 [place] Blood collection 3:34 PM CDT CLINICS Collection performed [place] Specimen Anatomical Collection Method Collection Time Receive d Time (Source) Location / / Volume Laterality 01/18/2020 3:33 PM 0 3:34 CDT PM CDT Froylan Louise MD LAB - LAB COMMUNICATION Performing Organization Address City/[facility]/ZIP Code Phon e Number [facility] [id number] [place] [address] (ABNORMAL) INR (01/18/2020 3:33 PM CDT) P athologist Signature INR 2.60 (H) 0.86 - 1.14 01/18/2020 [place] 4:04 PM CDT [facility] Comment: This test is intended for monitoring Cou madin therapy. ??Results are not accurate in patients with prolonged INR due to factor deficiency. Specimen Anatomical Collection Method Collection Time Receive d Time (Source) Location / / Volume Laterality Blood specimen 01/18/2020 3:33 PM 020 3:34 (specimen) CDT PM CDT Froylan Louise MD LAB - BLOOD ORDERABLES Performing Organization Address City/[facility]/ZIP Code Phon e Number [facility] [id number] [place] [address] documented in this encounter Visit Diagnoses Diagnosis Personal history of DVT (deep vein throm bosis) Personal history of venous thrombosis an d embolism documented in this encounter Care Teams Equal Opportunity Representative Relationship Specialty Start Date End Date Froylan Louise MD PCP - General Family Practice 02/22/14 Froylan Louise MD Assigned PCP 03/13/14 2 documented as of this encounter
--- OUTSIDE RECORDS SUMMARY | 2022-05-15 22:26 | XMS_ITS | Encounter Summary ---
:1955 Author Organization [place] Address [facility] [place] [address] Care Team Providers Name Role Phone Froylan Louise MD Primary Care Provider Unavailable Froylan Louise MD Unavailable Unavailable Reason for Referral Specialty Diagnoses / Procedures Referred By Contact Refer red To Contact Froylan Louise M D Qu[place], [place] [address] [facility] [address] [place] [address] [place] [id number] Referral ID Status Reason Start Date Expiration Date Visits Requ ested Visits Authorized Encounter Details Date Type Department Care Team Description 09/30/2019 Documentation Only [facility] Froylan Louise g-term (current) use of anticoagulants [Z79.01] (Primary Dx); Clinic Chhaya Dubose MD Chronic deep vein thrombosis (DVT) of lower extremity, unspecified laterality, unspecified vein (H) [address] [place] [address] Social History Tobacco Use Types [...] containing 4 or more times a w [place] 05/25/2021 alcohol? How many drinks containing alcohol [...] you attend adventist or Patient refused 2020 catholic services? Do [...] Progress Notes Kimmie Vegas RN - 09/30/2019 3:26 PM CDT Reimbursement rules require all INR Clinic patients to have a yearly renewal of an INR Clinic Referral order. Referral must be signed by the PCP for each patient. ?? Referral is pended. Please complete and sign. ?? Kimmie Vegas RN documented in this encounter Plan of Treatment Upcoming Encounters Date Type Specialty Care Team Description 05/20/2022 Lab Lab Scheduled Referrals Name Type Priority Associated Diagnoses Order S [facility] ANTICOAGULATION CLINIC Referral Routine Long-term (current ) use Ordered: REFERRAL of anticoagulants 10/01/2019 [Z79.01] Chronic deep vein thrombosis (DVT) of lower extremity, unspecified laterality, unspecified vein (H) documented as of this encounter Visit Diagnoses Diagnosis Long-term (current) use of anticoagulant s [Z79.01] - Primary Chronic deep vein thrombosis (DVT) of lo wer extremity, unspecified laterality, unspecified vein (H) documented in this encounter Care Teams Mines Inspector Relationship Specialty Start Date End Date Froylan Louise MD PCP - General Family Practice 02/22/14 Froylan Louise MD Assigned PCP 03/13/14 2 documented as of this encounter
--- OUTSIDE RECORDS SUMMARY | 2022-05-15 22:26 | XMS_ITS | Encounter Summary ---
:1955 Author Organization [place] Address [address] [place] [address] Care Team Providers Name Role Phone Froylan Louise MD Primary Care Provider Unavailable Froylan Louise MD Unavailable Unavailable Reason for Visit Reason Comments Medication Refill Encounter Details Date Type Department Care Team Description 01/01/2020 Refill [facility] Froylan Louise Ra, MD Medication Refill [address] [address] Social History Tobacco Use [...] you attend alevism or Patient refused 2020 yazidism services? Do [...] this encounter Miscellaneous Notes Telephone Encounter - Rebecca Dalton RN - 01/03/2020 8:09 AM CDT Anticoagulation Monitoring Return Date Recheck Latest Ref Rng & Units 11/24/2019 01/05/2020 6 WEEKS Anticoagulation Monitoring Instructions Latest Ref Rng & Units 11/24/2019 5 mg every Wed; 7.5 mg all other days Prescription approved per [facility] Refill Protocol. Rebecca Dalton, CINDY Anticoagulation Nurse - [facility] [place] documented in this encounter Plan of Treatment Upcoming Encounters Date Type Specialty Care Team Description 05/20/2022 Lab Lab documented as of this encounter Visit Diagnoses Diagnosis Acute deep vein thrombosis (DVT) of prox imal vein of both lower extremities (H) documented in this encounter Care Teams Annealing Furnace Tender Relationship Specialty Start Date End Date Froylan Louise MD PCP - General Family Practice 02/22/14 Froylan Louise MD Assigned PCP 03/13/14 2 documented as of this encounter
--- OUTSIDE RECORDS SUMMARY | 2022-05-15 22:26 | XMS_ITS | Encounter Summary ---
:1955 Author Organization [place] Address [facility] [place] [address] Care Team Providers Name Role Phone Froylan Louise MD Primary Care Provider Unavailable Froylan Louise MD Unavailable Unavailable Encounter Details Date Type Department Care Team Description 11/24/2019 Anticoagulation Therapy [facility] Audrey Louise Chronic deep vein thrombosis (DVT) of lower extremity, unspecified laterality, unspecified vein (H); Visit Clinic Erick Dubose MD detention current use of ant icoagulant therapy [address] [place] [address] Social History Tobacco Use Types [...] you attend pentecostalism or Patient refused 2020 amish services? Do [...] documented as of this encounter Progress Notes Rose Choudhury RN - 11/24/2019 2:16 PM CDT ANTICOAGULATION FOLLOW-UP CLINIC VISIT Patient Name: Virgil Christine Date: 11/24/2019 Contact Type: Telephone/ discussed with patient SUBJECTIVE: Patient Findings Positives: Change in medications (Patient had COVID like symptoms (tested negative) and was placed on doxycycline for 10 days and prednisone for 5 days. He completed these medications about 2 weeks ago and is feeling well.) Comments: The patient was assessed for diet, and activity level changes, missed or extra doses, bruising or bleeding, with no problem findings. Clinical Outcomes Negatives: Major bleeding event, Thromboembolic event, Anticoagulation-related hospital admission, Anticoagulation-related ED visit, Anticoagulation-related fatality Comments: The patient was assessed for diet, and activity level changes, missed or extra doses, bruising or bleeding, with no problem findings. OBJECTIVE Recent labs: (last 7 days) 11/24/19 1309 INR 2.40* ASSESSMENT / PLAN INR assessment THER Recheck INR In: 6 WEEKS INR Location Clinic Anticoagulation Summary As of 11/24/2019 INR goal: 2.0-3.0 TTR: 71.6 % (1 y) INR used for dosin.40 (11/24/2019) Warfarin maintenance plan: 5 mg (5 mg x 1) every Wed; 7.5 mg (7.5 mg x 1) all other days Full warfarin instructions: 5 mg every Wed; 7.5 mg all other days Weekly warfarin total: 50 mg No change documented: Rose Choudhury RN Plan last modified: Hilda Burch RN (05/14/2019) Next INR check: 01/05/2020 Priority: Maintenance Target end date: 09/30/2020 Indications Chronic deep vein thrombosis (DVT) of lower extremity unspecified laterality unspecified vein (H) [I82.509] Long-term (current) use of anticoagulants [Z79.01] [Z79.01] Anticoagulation Episode Summary INR check location: Preferred lab: Send INR reminders to: [facility] Comments: Anticoagulation Care Providers Provider Role Specialty Phone number Froylan Louise MD Referring Family Practice [phone] See the Encounter Report to view Anticoagulation Flowsheet and Dosing Calendar (Go to Encounters tabin chart review, and find the Anticoagulation Therapy Visit) Dosage adjustment made based on physician directed care plan. Rose Choudhury, RN documented in this encounter Plan of Treatment Upcoming Encounters Date Type Specialty Care Team Description 05/20/2022 Lab Lab documented as of this encounter Visit Diagnoses Diagnosis Chronic deep vein thrombosis (DVT) of lo wer extremity, unspecified laterality, unspecified vein (H) detention current use of anticoagulant t herapy documented in this encounter Care Teams Analytical Research Program Manager Relationship Specialty Start Date End Date Froylan Louise MD PCP - General Family Practice 02/22/14 Froylan Louise MD Assigned PCP 03/13/14 2 documented as of this encounter
--- OUTSIDE RECORDS SUMMARY | 2022-05-15 22:26 | XMS_ITS | Encounter Summary ---
:1955 Author Organization [place] Address [address] [place] [address] Care Team Providers Name Role Phone Froylan Louise MD Primary Care Provider Unavailable Froylan Louise MD Unavailable Unavailable Encounter Details Date Type Department Care Team Description 10/28/2019 Orders Only [facility] Wily g term current use of anticoagulants with INR goal of 2.0-3.0; [facility] DVT (deep venous thrombosis) (H) [address] [place] [address] Social History Tobacco Use [...] containing 4 or more times a w [place] 05/25/2021 alcohol? How many drinks containing alcohol [...] you attend yazidi or Patient refused 2020 mu-ism services? Do [...] Associated Diagnosis Comme nts CAPILLARY BLOOD Routine 10/28/2019 12:52 [facility] current use Results for this COLLECTION PM CDT of anticoagulants with proce dure are in INR goal of 2.0-3.0 the resu lts section. 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 thrombosis) (H) documented in this encounter Results Capillary Blood Collection (10/28/2019 12:52 PM CDT) [facility] gist Method Time Signature Capillary Capillary 10/28/2019 [place] Blood collection 1:03 PM CDT CLINICS Collection [facility] Specimen Anatomical Collection Method Collection Time Receive d Time (Source) Location / / Volume Laterality 10/28/2019 12:52 10/28/2019 1:02 PM CDT PM CDT Froylan Louise MD LAB - LAB COMMUNICATION Performing Organization Address City/[facility]/ZIP Code Phon e Number [facility] [id number] [place] [address] (ABNORMAL) INR (10/28/2019 12:40 PM CDT) P athologist Signature INR 2.30 (H) 0.86 - 1.14 10/28/2019 [place] 1:04 PM CDT [facility] Comment: This test is intended for monitoring Cou madin therapy. ??Results are not accurate in patients with prolonged INR due to factor deficiency. Specimen Anatomical Collection Method Collection Time Receive d Time (Source) Location / / Volume Laterality Blood specimen 10/28/2019 12:40 0 1:02 (specimen) PM CDT PM CDT Froylan Louise MD LAB - BLOOD ORDERABLES Performing Organization Address City/[facility]/ZIP Code Phon e Number [facility] [phone] 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
--- OUTSIDE RECORDS SUMMARY | 2022-05-15 22:26 | XMS_ITS | Encounter Summary ---
:1955 Author Organization [place] Address [address] [place] [address] Care Team Providers Name Role Phone Froylan Louise MD Primary Care Provider Unavailable Froylan Louise MD Unavailable Unavailable Encounter Details Date Type Department Care Team Description 10/28/2019 Anticoagulation Therapy [facility] Jazzy Ramos Chronic deep vein thrombosis (DVT) of lower extremity, unspecified laterality, unspecified vein (H); Visit Clinic Demetra Conrad RN termite control servicer [place] use of anticoagulant therapy [address] [address] Social History Tobacco Use Types [...] you attend sabianist or Patient refused 2020 temple services? Do [...] encounter Progress Notes Jazzy Ramos RN - 10/28/2019 2:14 PM CDT ANTICOAGULATION FOLLOW-UP CLINIC VISIT Patient Name: Virgil Christine Date: 10/28/2019 Contact Type: Telephone SUBJECTIVE: Patient Findings Positives: Change in health (gaining weight for no known reason.) Comments: Patient requested 6 weeks for next INR, I agreed as INR is stable now. Clinical Outcomes Negatives: Major bleeding event, Thromboembolic event, Anticoagulation-related hospital admission, Anticoagulation-related ED visit, Anticoagulation-related fatality Comments: Patient requested 6 weeks for next INR, I agreed as INR is stable now. OBJECTIVE INR Date Value Ref Range Status 10/28/2019 2.30 (H) 0.86 - 1.14 Final Comment: This [...] INR Location Clinic Anticoagulation Summary As of 10/28/2019 INR goal: 2.0-3.0 TTR: 71.6 % (1 y) INR used for dosin.30 (10/28/2019) Warfarin maintenance plan: 5 mg (5 mg x 1) every Wed; 7.5 mg (7.5 mg x 1) all other days Full warfarin instructions: 5 mg every Wed; 7.5 mg all other days Weekly warfarin total: 50 mg No change documented: Jazzy Ramos RN Plan last modified: Hilda Burch RN (05/14/2019) Next INR check: 12/02/2019 Priority: Maintenance Target end date: 09/30/2020 Indications Chronic deep vein thrombosis (DVT) of lower extremity unspecified laterality unspecified vein (H) [I82.509] Long-term (current) use of anticoagulants [Z79.01] [Z79.01] Anticoagulation Episode Summary INR check location: Preferred lab: Send INR reminders to: [facility] Comments: Anticoagulation Care Providers Provider Role Specialty Phone number Froylan Louise MD [facility] Practice [phone] See the Encounter Report to view Anticoagulation Flowsheet and Dosing Calendar (Go to Encounters tabin chart review, and find the Anticoagulation Therapy Visit) Jazzy Ramos RN documented in this encounter Plan of Treatment Upcoming Encounters Date Type Specialty Care Team Description 05/20/2022 Lab Lab documented as of this encounter Visit Diagnoses Diagnosis Chronic deep vein thrombosis (DVT) of lo wer extremity, unspecified laterality, unspecified vein (H) 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
--- OUTSIDE RECORDS SUMMARY | 2022-05-15 22:26 | XMS_ITS | Encounter Summary ---
:1955 Author Organization [place] Address [address] [place] [address] Care Team Providers Name Role Phone Froylan Louise MD Primary Care Provider Unavailable Froylan Louise MD Unavailable Unavailable Reason for Visit Reason Comments Medication Refill Encounter Details Date Type Department Care Team Description 12/28/2019 Refill [facility] Froylan Louise Ra, MD Medication Refill [place] [address] [facility] [address] [place] [address] Social History Tobacco Use Types Packs/Day Years Used Date Smoking Tobacco: Former Cigarettes 2 25 Quit : 08/04/2006 Smokeless Tobacco: Never Comments: 2004 Alcohol Use Standard Drinks/Week Comments Yes 0 (1 standard drink = 0.6 oz pure alcoho l) 4 BEERS A WEEK Alcohol Habits Answer Date Recorded How often do you have a drink containing 4 or more times a w [place] 05/25/2021 alcohol? How many drinks containing alcohol [...] you attend mosque or Patient refused 2020 yazidi services? Do [...] Telephone Encounter - Regina Wise RN - 12/28/2019 3:22 PM CDT Denied request. Medication was discontinued 12/2018. Error by pharmacy. Regina Wise, RN Flex documented in this encounter Plan of Treatment Upcoming Encounters Date Type Specialty Care Team Description 05/20/2022 Lab Lab documented as of this encounter Visit Diagnoses Not on filedocumented in this encounter Care Teams High Lift Operator Relationship Specialty Start Date End Date Froylan Louise MD PCP - General Family Practice 02/22/14 Froylan Louise MD Assigned PCP 03/13/14 2 documented as of this encounter
--- OUTSIDE RECORDS SUMMARY | 2022-05-15 22:26 | XMS_ITS | Encounter Summary ---
:1955 Author Organization [place] Address [address] [place] [address] Care Team Providers Name Role Phone Froylan Louise MD Primary Care Provider Unavailable Froylan Louise MD Unavailable Unavailable Encounter Details Date Type Department Care Team Description 10/29/2019 Telephone [facility] Froylan Louise Ra, MD [place] [address] [place] [address] Social History Tobacco Use [...] containing 4 or more times a w [place] 05/25/2021 alcohol? How many drinks containing alcohol [...] you attend muslim or Patient refused 2020 gnosticist services? Do [...] Telephone Encounter - Esthela Corea RN - 10/29/2019 12:15 PM CDT Pt is being tested for COVID on 10/30 He was prescribed antibiotic and prednisone. Will cancel appt with PCP today and if not improving should f/u next week. Pt expressed understanding and acceptance of the plan. had no further questions at this time. Advised can call back to clinic at any time with concerns. Esthela Corea RN Telephone Encounter - Brian Gilman - 10/29/2019 10:59 AM CDT Patient called back returning a call from Esthela. Unable to transfer. Please call Virgil salazar at [phone] and advise. Telephone Encounter - Esthela Corea RN - 10/29/2019 10:02 AM CDT Pt calling back He has had productive cough for over 1 mouth with yellow mucous. He is having SOB which is worse when laying down. The Atrovent and albuterol MDI's are helpful. DENIES- wheezing, chest pain or fever. I am checking my tempeture 3 X day. Pt has been working daily. Per PCP ok to keep OV today but does need COVID testing. Pt advised to do [facility] now, before visit this afternoon. He much wear mask when he comes into clinic. Message handled by Nurse Triage with [facility] - provider name: Froylan Louise Pt expressed understanding and acceptance of the plan. had no further questions at this time. Advised can call back to clinic at any time with concerns. . Esthela Corea RN Telephone Encounter - Esthela Corea RN - 10/29/2019 9:11 AM CDT LM for call back Please have pt do [facility] or Virtual UC as PCP feels he should be assessed for Covid Testing Esthela Corea, RN documented in this encounter Plan of Treatment Upcoming Encounters Date Type Specialty Care Team Description 05/20/2022 Lab Lab documented as of this encounter Visit Diagnoses Not on filedocumented in this encounter Care Teams Heel Caser Relationship Specialty Start Date End Date Froylan Louise MD PCP - General Family Practice 02/22/14 Froylan Louise MD Assigned PCP 03/13/14 2 documented as of this encounter
--- OUTSIDE RECORDS SUMMARY | 2022-05-15 22:26 | XMS_ITS | Encounter Summary ---
:1955 Author Organization [place] Address [address] [place] [address] Care Team Providers Name Role Phone Froylan Louise MD Primary Care Provider Unavailable Froylan Louise MD Unavailable Unavailable Reason for Visit Reason Comments Medication Refill Encounter Details Date Type Department Care Team Description 10/06/2019 Refill [facility] Froylan Louise Ra, MD Medication Refill [address] [address] Social History Tobacco Use [...] containing 4 or more times a w [place] 05/25/2021 alcohol? How many drinks containing alcohol [...] you attend amish or Patient refused 2020 yazdanism services? Do [...] Telephone Encounter - Wendi Lindsay RN - 10/06/2019 12:19 PM CDT Routing refill request to provider [...] system documented in this encounter Care Teams Botany Teacher Relationship Specialty Start Date End Date Froylan Louise MD PCP - General Family Practice 02/22/14 Froylan Louise MD Assigned PCP 03/13/14 2 documented as of this encounter
--- OUTSIDE RECORDS SUMMARY | 2022-05-15 22:26 | XMS_ITS | Encounter Summary ---
:1955 Author Organization [facility] Address [facility] [place] [address] Care Team Providers Name Role Phone Froylan Louise MD Primary Care Provider Unavailable Froylan Louise MD Unavailable Unavailable Encounter Details Date Type Department Care Team Description 10/29/2019 Virtual Visit [facility] Rob Rhoades, MARILYNNC [address] [place] [address] [address] [place] [address] [place] [address] [phone] Social History Tobacco Use Types Packs/Day Years Used Date Smoking Tobacco: Former Cigarettes 2 25 Quit : 08/04/2006 Smokeless Tobacco: Never Comments: 2004 Alcohol Use Standard Drinks/Week Comments Yes 0 (1 standard drink = 0.6 oz pure alcoho l) 4 BEERS A WEEK Alcohol Habits Answer Date Recorded How often do you have a drink containing 4 or more times a w [place] 05/25/2021 alcohol? How many drinks containing alcohol [...] you attend alevism or Patient refused 2020 christianity services? Do [...] documented as of this encounter Progress Notes Rob Rhoades PA-C - 10/29/2019 10:42 AM CDT Date: 10/29/2019 10:39:51 Clinician: Rob Rhoades Clinician Patient: Virgil Christine Patient : 1955 Patient Address: [address] [address] Patient Visit Protocol: URI Patient Summary: Virgil is a 63 year old ( : 1955 ) male who initiated a Visit for COVID-19 (Coronavirus) evaluation and screening. When asked the question Please sign me up to receive news, health information and promotions from [employer] Virgil responded Yes. Virgil states his symptoms startedgradually 2-3 weeks ago. After his symptoms started, they improved and then got worse again. His symptoms consist of myalgia, a cough, nasal congestion, and wheezing. He is experiencing mild difficultybreathing with activities but can speak normally in full sentences. Symptom details Nasal secretions: The color of his mucus is yellow. Cough: Virgil coughs a few times an hour and his cough is more bothersome at night. Phlegm comes intohis throat when he coughs. He does not believe his cough is caused by post-nasal drip. The color of the phlegm is yellow. Wheezing: Virgil has been diagnosed with asthma. The wheezing does not interfere with his normal daily activities. Virgil denies having fever, rhinitis, facial pain or pressure, sore throat, vomiting, nausea, teeth pain, ageusia, anosmia, diarrhea, ear pain, headache, malaise, enlarged lymph nodes, and chills. He also denies taking antibiotic medication for the symptoms, having a sinus infection within the past year, and having recent facial or sinus surgery in the past 60 days. Precipitating events He has not recently been exposed to someone with influenza. Virgil has not been in close contact with any high risk individuals. Pertinent COVID-19 (Coronavirus) information Virgil does not work or volunteer as healthcare worker or a domain architect and does not work or volunteer in a healthcare facility. He does not live with a healthcare worker. Virgil has not had a close contact with a laboratory-confirmed COVID-19 patient within 14 days of symptom onset. He also has not had a close contact with a suspected COVID-19 patient within 14 days of symptom onset. Pertinent medical history Virgil does not need a return to work /school note. Weight: 236 lbs Virgil does not smoke or use smokeless tobacco. Additional information as reported by the patient (free text): I Have COPD, As Well And Get A Lot Of Phlegm ,Very Active, History Of Blood Clots Feels Like My Lungs Are Half Full Of Mucus I Cough Up Thick Mucus Worse When Im Lying Down Weight: 236 lbs MEDICATIONS: warfarin oral, loperamide oral, Symbicort inhalation, ALLERGIES: NKDA Clinician Response: Dear Virgil, Your symptoms show that you may have coronavirus (COVID-19). This illness can cause fever, cough and trouble breathing. Many people get a mild case and get better on their own. Some people can get very sick. Will I be tested for COVID-19? We would recommend you be testedfor coronavirus. Here is how to get that scheduled: Call [phone]. Tell them you were referred by [facility] to have a COVID-19 test. You will be scheduled at one of our [facility] testing locations (drive-up). Please have your [facility] visit information ready when you call including your visit ID number to verify you were referred. How can I protect others in the meantime? First, stay home and away fromothers (self-isolate) until: You've had no fever---and no medicine that reduces fever---for 3 full days (72 hours). And... Your other symptoms have gotten better. For example, your cough or breathing has improved. And... At least 10 days have passed since your symptoms started. During this time: Don'tgo to work, school or anywhere else. Stay away from others in your home. No hugging, kissing or shaking hands. Don't let anyone visit. Cover your mouth and nose with a mask, tissue or wash cloth to avoid spreading germs. Wash your hands and face often. Use soap and water. How can I take care of myself? 1.Take Tylenol (acetaminophen) for fever or pain. If you have liver or kidney problems, ask your family doctor if it's okay to take Tylenol. Adults can take either: 650 mg (two 325 mg pills) every 4 to 6 hours, or... 1,000 mg (two 500 mg pills) every 8 hours as needed. Note: Don't take more than 3,000 mg in one day. For children, check the Tylenol bottle for the right dose. The dose is based on the child's age or weight. 2.If you have other health problems (like cancer, heart failure, an organ transplant or severe kidney disease): Call your specialty clinic if you don't feel better in the next 2 days. 3.Know when to call 911: If your breathing is so bad that it keeps you from doing normal activities, call 911 or go to the emergency room. Tell them that you've been staying home and may have COVID-19. 4.Sign up for [employer]. We know it's scary to hear that you might have COVID-19. We want to track your symptoms to make sure you're okay over the next 2 weeks. Please look for an email from [employer]---this is a free, online program that we'll use to keep in touch. To sign up, follow the eagle skelton in the email. Learn more at [email or web address]. Where can I get more information? To learn more about COVID-19 and how to care for yourself at home, please visit the CDC website at http s://www.cdc.gov/coronavirus/2019-ncov/about/tyqew-tyye-ycuo.html. For more about your care at [facility], please visit [email or web address] Diagnosis: Acute upper respiratory infection, unspecified Diagnosis ICD: J06.9 Prescription: prednisone 20 mg oral tablet 5 tablet, 5 days supply. Take 1 tablet by mouth 1 time per day for 5 days. Refills: 0, Refill as needed: no, Allow substitutions: yes Prescription: doxycycline monohydrate (Monodox) 100 mg oral capsule 20 capsule, 10 days supply. Take1 capsule by mouth 2 times per day for 10 days. Refills: 0, Refill as needed: no, Allow substitutions: yes Pharmacy: [id number] - - [address], [place] [address] documented in this encounter Plan of Treatment Upcoming Encounters Date Type Specialty Care Team Description 05/20/2022 Lab Lab documented as of this encounter Visit Diagnoses Not on filedocumented in this encounter Care Teams Finish Opener Relationship Specialty Start Date End Date Froylan Louise MD PCP - General Family Practice 02/22/14 Froylan Louise MD Assigned PCP 03/13/14 2 documented as of this encounter
--- OUTSIDE RECORDS SUMMARY | 2022-05-15 22:26 | XMS_ITS | Encounter Summary ---
:1955 Author Organization [facility] Address [address] [place] [address] Care Team Providers Name Role Phone Froylan Louise MD Primary Care Provider Unavailable Froylan Louise MD Unavailable Unavailable Encounter Details Date Type Department Care Team Description 09/30/2019 Travel Social History Tobacco Use Types Packs/Day [...] you attend adventism or Patient refused 2020 mormonism services? Do [...] filedocumented in this encounter Care Teams Technical Specialist Cytology Relationship Specialty Start Date End Date Froylan Louise MD PCP - General Family Practice 02/22/14 Froylan Louise MD Assigned PCP 03/13/14 2 documented as of this encounter
--- OUTSIDE RECORDS SUMMARY | 2022-05-15 22:27 | XMS_ITS | Encounter Summary ---
:1955 Author Organization [facility] Address [address] [place] [address] Care Team Providers Name Role Phone Froylan Louise MD Primary Care Provider Unavailable Froylan Louise MD Unavailable Unavailable Encounter Details Date Type Department Care Team Description 08/23/2019 Travel Social History Tobacco Use Types Packs/Day Years Used Date Smoking Tobacco: Former Cigarettes 2 25 Quit : 08/04/2006 Smokeless Tobacco: Never Comments: 2004 Alcohol Use Standard Drinks/Week Comments Yes 0 (1 standard drink = 0.6 oz pure alcoho l) 4 BEERS A WEEK Alcohol Habits Answer Date Recorded How often do you have a drink containing 4 or more times a w [place] 05/25/2021 alcohol? How many drinks containing [...] you attend yazdanism or Patient refused 2020 mu-ism services? Do [...] on filedocumented in this encounter Care Teams Tax Services Professional Relationship Specialty Start Date End Date Froylan Louise MD PCP - General Family Practice 02/22/14 Froylan Louise MD Assigned PCP 03/13/14 2 documented as of this encounter
--- OUTSIDE RECORDS SUMMARY | 2022-05-15 22:27 | XMS_ITS | Encounter Summary ---
:1955 Author Organization [facility] Address [address] [place] [address] Care Team Providers Name Role Phone Froylan Louise MD Primary Care Provider Unavailable Froylan Louise MD Unavailable Unavailable Reason for Visit Reason Comments Medication Refill Encounter Details Date Type Department Care Team Description 09/05/2019 Refill [facility] Froylan Louise Ra, MD Medication Refill [address] [address] Social History Tobacco Use [...] you attend rastafari or Patient refused 2020 islam services? Do [...] Telephone Encounter - Wendi Lindsay RN - 09/06/2019 9:38 AM CDT Prescription approved per [facility] Refill Protocol. Wendi Lindsay RN, BSN documented in this encounter Plan of Treatment Upcoming Encounters Date Type Specialty Care Team Description 05/20/2022 Lab Lab documented as of this encounter Visit Diagnoses Diagnosis Lichen planus documented in this encounter Care Teams Soaker Hides Relationship Specialty Start Date End Date Froylan Louise MD PCP - General Family Practice 02/22/14 Froylan Louise MD Assigned PCP 03/13/14 2 documented as of this encounter
--- OUTSIDE RECORDS SUMMARY | 2022-05-15 22:27 | XMS_ITS | Encounter Summary ---
:1955 Author Organization [facility] Address [address] [place] [address] Care Team Providers Name Role Phone Froylan Louise MD Primary Care Provider Unavailable Froylan Louise MD Unavailable Unavailable Reason for Visit Reason Onset Date Comments INR Followup 07/12/2019 Encounter Details Date Type Department Care Team Description 07/12/2019 Telephone [facility] Froylan Louise Ra, MD INR Followup [address] [address] Social History Tobacco [...] containing 4 or more times a w [place] 05/25/2021 alcohol? How many drinks containing alcohol [...] attend roman catholic or Patient refused 2020 yazidism services? Do [...] Telephone Encounter - Estefanía Romano RN - 07/12/2019 4:52 PM CST ANTICOAGULATION MANAGEMENT Patient Name: Virgil Christine Date: 07/12/2019 ASSESSMENT /SUBJECTIVE: Today's INR result of 2.2 is therapeutic. Goal INR of 2.0-3.0 ??? Warfarin dose taken: Warfarin taken as previously instructed ??? Diet: No new diet changes affecting INR ??? Medication changes/ interactions: No new medications/supplements affecting INR ??? Previous INR: Supratherapeutic likely d/t abx and illness ??? S/S of bleeding or thromboembolism: No ??? New injury or illness: No ??? Upcoming surgery, procedure or cardioversion: Yes: possibly LASIK eye surgery coming up, he has a consultation scheduled and will be sure to make his provider aware that he takes warfarin (did advise that it is not usually held for LASIK but this will be up to his provider) ??? Additional findings: none PLAN: Spoke with Virgil regarding INR result and instructed: Warfarin Dosing Instructions: Continue your current warfarin dose 5 mg every Wed; 7.5 mg all other days Instructed patient to follow up no later than: 3 weeks Lab visit scheduled Education provided: No Virgil verbalizes understanding and agrees to warfarin dosing plan. Instructed to call the Anticoagulation Clinic for any changes, questions or concerns. (#[phone]) OBJECTIVE: INR Date Value Ref Range Status 07/12/2019 2.20 (H) 0.86 - 1.14 Final Comment: This [...] less than 2. Anticoagulation Summary As of 07/12/2019 INR goal: 2.0-3.0 TTR: 73.6 % (1 y) INR used for dosin.20 (07/12/2019) Warfarin maintenance plan: 5 mg (5 mg x 1) every Wed; 7.5 mg (7.5 mg x 1) all other days Full warfarin instructions: 5 mg every Wed; 7.5 mg all other days Weekly warfarin total: 50 mg Plan last modified: Hilda Burch RN (05/14/2019) Next INR check: 08/02/2019 Priority: Maintenance Target end date: Indications Long-term (current) use of anticoagulants [Z79.01] [Z79.01] Embolism and thrombosis (H) (Resolved) [I74.9] Anticoagulation Episode Summary INR check location: Preferred lab: Send INR reminders to: [facility] Comments: FIRE CHARGER OPERATOR Telephone Encounter - Estefanía Romano RN - 07/12/2019 4:10 PM CST Anticoagulation Management Unable to reach Virgil today. Today's INR result of 2.2 is therapeutic (goal INR of 2.0-3.0). Result received from: Clinic Lab Follow up required to confirm warfarin dose taken and assess for changes Left message to continue current dose of warfarin tonight. 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
--- OUTSIDE RECORDS SUMMARY | 2022-05-15 22:27 | XMS_ITS | Encounter Summary ---
:1955 Author Organization [facility] [facility] Address [address] [place] [address] Care Team Providers Name Role Phone Froylan Louise MD Primary Care Provider Unavailable Froylan Louise MD Unavailable Unavailable Reason for Visit Reason Onset Date Comments INR RESULTS 06/21/2019 Encounter Details Date Type Department Care Team Description 06/21/2019 Telephone [facility] Froylan Louise Ra, MD INR RESULTS [address] [address] Social History Tobacco Use [...] containing 4 or more times a w [place] 05/25/2021 alcohol? How many drinks containing [...] you attend gnosticism or Patient refused 2020 faith services? Do [...] Telephone Encounter - Rebecca Dalton RN - 06/21/2019 1:38 PM CST ANTICOAGULATION MANAGEMENT Patient Name: Virgil Christine Date: 06/21/2019 ASSESSMENT /SUBJECTIVE: Today's INR result of 3.1 is supratherapeutic. Goal INR of 2.0-3.0 ??? Warfarin dose taken: Warfarin taken as previously instructed ??? Diet: No new diet changes affecting INR ??? Medication changes/ interactions: completed Amoxicillin ??? Previous INR: Therapeutic ??? S/S of bleeding or thromboembolism: No ??? New injury or illness: No ??? Upcoming surgery, procedure or cardioversion: No ??? Additional findings: Completed course of amoxicillin PLAN: Spoke with Virgil regarding INR result and instructed: Warfarin Dosing Instructions: Continue your current warfarin dose Instructed patient to follow up no later than: 2 weeks Education provided: Yes: Watch for increased signs of bruising or bleeding and if noted to be seen right away Virgil verbalizes understanding and agrees to warfarin dosing plan. Instructed to call the Anticoagulation Clinic for any changes, questions or concerns. (#[phone]) OBJECTIVE: INR Date Value Ref Range Status 06/21/2019 3.10 (H) 0.86 - 1.14 Final Comment: This [...] less than 2. Anticoagulation Summary As of 06/21/2019 INR goal: 2.0-3.0 TTR: 73.5 % (1 y) INR used for dosin.10! (06/21/2019) Warfarin maintenance plan: 5 mg (5 mg x 1) every Wed; 7.5 mg (7.5 mg x 1) all other days Full warfarin instructions: 5 mg every Wed; 7.5 mg all other days Weekly warfarin total: 50 mg Plan last modified: Hilda Burch RN (05/14/2019) Next INR check: 07/05/2019 Priority: Maintenance Target end date: Indications Long-term (current) use of anticoagulants [Z79.01] [Z79.01] Embolism and thrombosis (H) (Resolved) [I74.9] Anticoagulation Episode Summary INR check location: Preferred lab: [facility] Comments: ENTATION MANAGER Telephone Encounter - Diana Fleming RN - 06/21/2019 1:02 PM CST Anticoagulation Management Unable to reach Virgil today. Today's INR result of 3.1 is supratherapeutic (goal INR of 2.0-3.0). Result received from: Clinic Lab Follow up required to confirm warfarin dose taken and assess for changes Left message to take reduced dose of warfarin, 5 mg tonight. Anticoagulation clinic to follow up Diana Fleming RN ENTATION MANAGER documented in this encounter Plan of Treatment Upcoming Encounters Date Type Specialty Care Team Description 05/20/2022 Lab Lab documented as of this encounter Visit Diagnoses Diagnosis senior care current use of anticoagulant t herapy documented in this encounter Care Teams [employer] Distillery Relationship Specialty Start Date End Date Froylan Louise MD PCP - General Family Practice 02/22/14 Froylan Louise MD Assigned PCP 03/13/14 2 documented as of this encounter
--- OUTSIDE RECORDS SUMMARY | 2022-05-15 22:27 | XMS_ITS | Encounter Summary ---
:1955 Author Organization [facility] Address [address] [place] [address] Care Team Providers Name Role Phone Froylan Louise MD Primary Care Provider Unavailable Froylan Louise MD Unavailable Unavailable Encounter Details Date Type Department Care Team Description 07/12/2019 Travel Social History Tobacco Use Types Packs/Day [...] 4 or more times a w [place] 05/25/2021 alcohol? How many drinks containing alcohol [...] attend oriental orthodox or Patient refused 2020 caodaism services? Do [...] on filedocumented in this encounter Care Teams Content Management Specialist Relationship Specialty Start Date End Date Froylan Louise MD PCP - General Family Practice 02/22/14 Froylan Louise MD Assigned PCP 03/13/14 2 documented as of this encounter
--- OUTSIDE RECORDS SUMMARY | 2022-05-15 22:27 | XMS_ITS | Encounter Summary ---
:1955 Author Organization [facility] Address [address] [place] [address] Care Team Providers Name Role Phone Froylan Louise MD Primary Care Provider Unavailable Froylan Louise MD Unavailable Unavailable Reason for Visit Reason Comments Medication Refill Encounter Details Date Type Department Care Team Description 08/04/2019 Refill [facility] Froylan Louise Ra, MD Medication Refill [address] [address] Social History Tobacco [...] containing 4 or more times a w [place] 05/25/2021 alcohol? How many drinks containing alcohol [...] you attend buddhist or Patient refused 2020 baptist services? Do [...] this encounter Miscellaneous Notes Telephone Encounter - eWndi Lindsay RN - 08/04/2019 3:57 PM CST Routing refill request to provider for review/approval because: Drug not on the [facility] [place] Wendi Lindsay RN, BSN INAL MAKEUP OPERATOR documented in this encounter Plan of Treatment Upcoming Encounters Date Type Specialty Care Team Description 05/20/2022 Lab Lab documented as of this encounter Visit Diagnoses Diagnosis H/O ulcerative colitis Personal history of other diseases of di gestive system documented in this encounter Care Teams Screen Handler Relationship Specialty Start Date End Date Froylan Louise MD PCP - General Family Practice 02/22/14 Froylan Louise MD Assigned PCP 03/13/14 2 documented as of this encounter
--- OUTSIDE RECORDS SUMMARY | 2022-05-15 22:27 | XMS_ITS | Encounter Summary ---
:1955 Author Organization [facility] Address [address] [place] [address] Care Team Providers Name Role Phone Froylan Louise MD Primary Care Provider Unavailable Froylan Louise MD Unavailable Unavailable Reason for Visit Reason Onset Date Comments Refill Request 07/06/2019 predniSONE (DELTASON E) 20 MG tablet Encounter Details Date Type Department Care Team Description 07/06/2019 Refill [facility] Froylan Louise Ra y, Refill Request Chhaya VILLASEÑOR (predniSONE (DELTASONE) [id number] [facility] 20 MG tablet) [place] [address] Social History Tobacco Use Types Packs/Day [...] you attend rastafarian or Patient refused 2020 anabaptism services? Do [...] Miscellaneous Notes Telephone Encounter - Page, Esthela M, RN - 07/06/2019 11:18 AM CST PT did not request prednisone - Esthela Corea RN WRITING EXPERT documented in this encounter Plan of Treatment Upcoming Encounters Date Type Specialty Care Team Description 05/20/2022 Lab Lab documented as of this encounter Visit Diagnoses Diagnosis Inflammatory arthritis Unspecified inflammatory polyarthropathy documented in this encounter Care Teams Plum Packer Relationship Specialty Start Date End Date Froylan Louise MD PCP - General Family Practice 02/22/14 Froylan Louise MD Assigned PCP 03/13/14 2 documented as of this encounter
--- OUTSIDE RECORDS SUMMARY | 2022-05-15 22:27 | XMS_ITS | Encounter Summary ---
:1955 Author Organization [facility] Address [address] [place] [address] Care Team Providers Name Role Phone Froylan Louise MD Primary Care Provider Unavailable Froylan Louise MD Unavailable Unavailable Encounter Details Date Type Department Care Team Description 07/12/2019 Orders Only [facility] Wily g term current use of anticoagulants with INR goal of 2.0-3.0; [facility] DVT (deep venous thrombosis) (H) [address] [place] [address] Social History Tobacco Use [...] containing 4 or more times a w [place] 05/25/2021 alcohol? How many drinks containing alcohol [...] you attend temple or Patient refused 2020 pentecostalism services? Do [...] Associated Diagnosis Comme nts CAPILLARY BLOOD Routine 07/12/2019 3:51 PM longterm current u se Results for this COLLECTION INTERIOR PANELER of anticoagulants with proce dure are in INR goal of 2.0-3.0 the resu lts section. INR Routine 07/12/2019 3:51 PM computer terminal operator current use Results for this INTERIOR PANELER of anticoagulants with proce dure are in INR goal of 2.0- 3.0 the results DVT (deep venous section. thrombosis) (H) documented in this encounter Results Capillary Blood Collection (07/12/2019 3:51 PM INTERIOR PANELER) Patholo gist Method Time Signature Capillary Capillary 07/12/2019 [place] Blood collection 3:52 PM INTERIOR PANELER CLINICS Collection performed [place] Specimen Anatomical Collection Method Collection Time Receive d Time (Source) Location / / Volume Laterality 07/12/2019 3:51 PM 0 3:52 INTERIOR PANELER PM INTERIOR PANELER Froylan Louise MD LAB - LAB COMMUNICATION Performing Organization Address City/[facility]/ZIP [facility] Phon e Number [facility] [id number] [place] [address] (ABNORMAL) INR (07/12/2019 3:51 PM INTERIOR PANELER) P athologist Signature INR 2.20 (H) 0.86 - 1.14 07/12/2019 [place] 3:57 PM INTERIOR PANELER [facility] Comment: This test is intended for monitoring Cou madin therapy. ??Results are not accurate in patients with prolonged INR due to factor deficiency. Specimen Anatomical Collection Method Collection Time Receive d Time (Source) Location / / Volume Laterality Blood specimen 07/12/2019 3:51 PM 020 3:52 (specimen) INTERIOR PANELER PM INTERIOR PANELER Froylan Louise MD LAB - BLOOD ORDERABLES Performing Organization Address City/[facility]/ZIP [facility] Phon e Number [facility] [id number] [place] [address] documented in this encounter Visit Diagnoses Diagnosis longterm current use of anticoagulants with INR goal of 2.0-3.0 DVT (deep venous thrombosis) (H) Acute venous embolism and thrombosis of unspecified deep vessels of lower extremity documented in this encounter Care Teams Banking Management Consulting Manager Relationship Specialty Start Date End Date Froylan Louise MD PCP - General Family Practice 02/22/14 Froylan Louise MD Assigned PCP 03/13/14 2 documented as of this encounter
--- OUTSIDE RECORDS SUMMARY | 2022-05-15 22:27 | XMS_ITS | Encounter Summary ---
:1955 Author Organization [facility] Address [address] [place] [address] Care Team Providers Name Role Phone Froylan Louise MD Primary Care Provider Unavailable Froylan Louise MD Unavailable Unavailable Reason for Visit Reason Comments Medication Refill Encounter Details Date Type Department Care Team Description 06/08/[address] [facility] Froylan Louise Ra, MD Medication Refill [address] [address] Social History Tobacco Use [...] you attend episcopal or Patient refused 2020 latter day services? [...] Encounter - Nahomy, Esthela Conrad RN - 06/09/2019 7:45 AM CST Routing refill request to provider for review/approval because: Please review warning with terazosin and per JENNIFER pt wants to switch back to Qvar this would be new RX Esthela Corea, RN ATIONS INSPECTOR documented in this encounter Plan of Treatment Upcoming Encounters Date Type Specialty Care Team Description 05/20/2022 Lab Lab documented as of this encounter Visit Diagnoses Diagnosis Mild persistent asthma without complicat ion Unspecified asthma Benign prostatic hyperplasia with weak u rinary stream documented in this encounter Care Teams Graduate Student Relationship Specialty Start Date End Date Froylan Louise MD PCP - General Family Practice 02/22/14 Froylan Louise MD Assigned PCP 03/13/14 2 documented as of this encounter
--- OUTSIDE RECORDS SUMMARY | 2022-05-15 22:27 | XMS_ITS | Encounter Summary ---
:1955 Author Organization [facility] Address [address] [place] [address] Care Team Providers Name Role Phone Froylan Louise MD Primary Care Provider Unavailable Froylan Louise MD Unavailable Unavailable Encounter Details Date Type Department Care Team Description 06/07/2019 Travel Social History Tobacco Use Types Packs/Day [...] or relatives? How often do you attend christianity or Patient refused 2020 uatsdin services? Do you belong to any clubs or Yes 05/25/2021 organizations such as christianity groups, unions, fraternal or athletic groups, or [...] filedocumented in this encounter Care Teams Senior Stock Plan Administrator Relationship Specialty Start Date End Date Froylan Louise MD PCP - General Family Practice 02/22/14 Froylan Louise MD Assigned PCP 03/13/14 2 documented as of this encounter
--- OUTSIDE RECORDS SUMMARY | 2022-05-15 22:27 | XMS_ITS | Encounter Summary ---
:1955 Author Organization [facility] Address [address] [place] [address] Care Team Providers Name Role Phone Froylan Louise MD Primary Care Provider Unavailable Froylan Louise MD Unavailable Unavailable Reason for Visit Reason Onset Date Comments INR RESULTS 05/31/2019 Encounter Details Date Type Department Care Team Description 05/31/2019 Telephone [facility] Froylan Louise Ra, MD INR RESULTS [address] [address] Social History Tobacco Use [...] you attend scientologist or Patient refused 2020 yarsanism services? Do you belong to any clubs [...] this encounter Miscellaneous Notes Telephone Encounter - Elizabeth Livingston RN - 05/31/2019 2:06 PM JUNIOR TECHNICAL WRITER ANTICOAGULATION MANAGEMENT Patient Name: Virgil Christine Date: 05/31/2019 ASSESSMENT /SUBJECTIVE: Today's INR result of 2.40 is therapeutic. Goal INR of 2.0-3.0 ??? Warfarin dose taken: Warfarin taken as previously instructed ??? Diet: No new diet changes affecting INR ??? Medication changes/ interactions: Prednisone taper started today for swollen joints ??? Previous INR: Subtherapeutic ??? S/S of bleeding or thromboembolism: No ??? New injury or illness: Yes: Swollen joints referral to Rheumatology ??? Upcoming surgery, procedure or cardioversion: No ??? Additional findings: none PLAN: Spoke with Virgil regarding INR result and instructed: Warfarin Dosing Instructions: Continue your current warfarin dose Instructed patient to follow up no later than: 1 week Education provided: Yes: Discussed the interaction between warfarin and Prednisone and the affect ofinflammation on INR He verbalizes understanding and agrees to warfarin dosing plan. Instructed to call the Anticoagulation Clinic for any changes, questions or concerns. (#[phone]) OBJECTIVE: INR Date Value Ref Range Status 05/31/2019 2.40 (H) 0.86 - 1.14 Final Comment: This [...] less than 2. Anticoagulation Summary As of 05/31/2019 INR goal: 2.0-3.0 TTR: 69.6 % (1 y) INR used for dosin.40 (05/31/2019) Warfarin maintenance plan: 5 mg (5 mg x 1) every Wed; 7.5 mg (7.5 mg x 1) all other days Full warfarin instructions: 5 mg every Wed; 7.5 mg all other days Weekly warfarin total: 50 mg Plan last modified: Hilda Burch RN (05/14/2019) Next INR check: Priority: High Target end date: Indications Long-term (current) use of anticoagulants [Z79.01] [Z79.01] Embolism and thrombosis (H) (Resolved) [I74.9] Anticoagulation Episode Summary INR check location: Preferred lab: Send INR reminders to: [facility] HERRERA Comments: OR TECHNICAL WRITER documented in this encounter Plan of Treatment Upcoming Encounters Date Type Specialty Care Team Description 05/20/2022 Lab Lab documented as of this encounter Visit Diagnoses Diagnosis partner alliance manager current use of anticoagulant t herapy documented in this encounter Care Teams Art Specialist Relationship Specialty Start Date End Date Froylan Louise MD PCP - General Family Practice 02/22/14 Froylan Louise MD Assigned PCP 03/13/14 2 documented as of this encounter
--- OUTSIDE RECORDS SUMMARY | 2022-05-15 22:27 | XMS_ITS | Encounter Summary ---
:1955 Author Organization [facility] Address [address] [place] [address] Care Team Providers Name Role Phone Froylan Louise MD Primary Care Provider Unavailable Froylan Louise MD Unavailable Unavailable Encounter Details Date Type Department Care Team Description 06/21/2019 Orders Only [facility] Wily g term current use of anticoagulants with INR goal of 2.0-3.0; [facility] DVT (deep venous thrombosis) (H) [address] [place] [address] Social History Tobacco Use Types Packs/Day [...] attend oriental orthodox or Patient refused 2020 mandaeism services? Do [...] Associated Diagnosis Comme nts CAPILLARY BLOOD Routine 06/21/2019 12:02 detention current use Results for this COLLECTION PM WIRELESS SALES ASSOCIATE of anticoagulants with proce dure are in INR goal of 2.0-3.0 the resu lts section. INR Routine 06/21/2019 12:02 detention current use Re sults for this PM WIRELESS SALES ASSOCIATE of anticoagulants with proce dure are in INR goal of 2.0- 3.0 the results DVT (deep venous section. thrombosis) (H) documented in this encounter Results Capillary Blood Collection (06/21/2019 12:02 PM WIRELESS SALES ASSOCIATE) Pathholy [facility] gist Method Time Signature Capillary Capillary 06/21/2019 [place] Blood collection 12:03 PM WIRELESS SALES ASSOCIATE CLINICS Collection performed [place] Specimen Anatomical Collection Method Collection Time Receive d Time (Source) Location / / Volume Laterality 06/21/2019 12:02 06/21/2019 PM WIRELESS SALES ASSOCIATE 12:03 PM WIRELESS SALES ASSOCIATE Froylan Louise MD LAB - LAB COMMUNICATION Performing Organization Address [facility] Phon e Number [facility] [address] [place] [address] (ABNORMAL) INR (06/21/2019 12:02 PM WIRELESS SALES ASSOCIATE) P athologist Signature INR 3.10 (H) 0.86 - 1.14 06/21/2019 [place] 12:12 PM WIRELESS SALES ASSOCIATE [facility] Comment: This test is intended for monitoring Cou madin therapy. ??Results are not accurate in patients with prolonged INR due to factor deficiency. Specimen Anatomical Collection Method Collection Time Receive d Time (Source) Location / / Volume Laterality Blood specimen 06/21/2019 12:02 9 (specimen) PM WIRELESS SALES ASSOCIATE 12:03 PM WIRELESS SALES ASSOCIATE Froylan Louise MD LAB - BLOOD ORDERABLES Performing Organization Address [facility] Phon e Number [facility] [address] [place] [address] documented in this encounter Visit Diagnoses Diagnosis detention current use of anticoagulants with INR goal of 2.0-3.0 DVT (deep venous thrombosis) (H) Acute venous embolism and thrombosis of unspecified deep vessels of lower extremity documented in this encounter Care Teams Concrete Vibrator Operator Relationship Specialty Start Date End Date Froylan Louise MD PCP - General Family Practice 02/22/14 Froylan Louise MD Assigned PCP 03/13/14 2 documented as of this encounter
--- OUTSIDE RECORDS SUMMARY | 2022-05-15 22:27 | XMS_ITS | Encounter Summary ---
:1955 Author Organization [facility] Address [address] [place] [address] Care Team Providers Name Role Phone Froylan Louise MD Primary Care Provider Unavailable Froylan Louise MD Unavailable Unavailable Reason for Visit Reason Onset Date Comments INR RESULTS 06/07/2019 Encounter Details Date Type Department Care Team Description 06/07/2019 Telephone [facility] Froylan Louise Ra, MD INR RESULTS [address] [address] Social History Tobacco Use [...] containing 4 or more times a w [place] 05/25/2021 alcohol? How many drinks containing [...] you attend yazidism or Patient refused 2020 latter day services? [...] Telephone Encounter - Monica Farley RN - 06/07/2019 4:26 PM CST ANTICOAGULATION MANAGEMENT Patient Name: Virgil Christine Date: 06/07/2019 ASSESSMENT /SUBJECTIVE: Today's INR result of 2.70 is therapeutic. Goal INR of 2.0-3.0 ??? Warfarin dose taken: Warfarin taken as previously instructed ??? Diet: No new diet changes affecting INR ??? Medication changes/ interactions: Interaction between prednisone and warfarin may be affecting INR ??? Previous INR: Therapeutic ??? S/S of bleeding or thromboembolism: No ??? New injury or illness: No ??? Upcoming surgery, procedure or cardioversion: No ??? Additional findings: Patient on prednisone until 06/21 PLAN: Spoke with Virgil regarding INR result and instructed: Warfarin Dosing Instructions: Continue your current warfarin dose Of 5 mg every Wed and 7.5 mg all other days Instructed patient to follow up no later than: 1 week, patient wants to come back in 2 weeks and wasscheduled for 06/24/18 at 4 pm at [facility] and was educated that 1 week is the recommendation dueto having the prednisone interaction Education provided: Yes: effect of prednisone on warfarin and inflammation Virgil verbalizes understanding and agrees to warfarin dosing plan. Instructed to call the Anticoagulation Clinic for any changes, questions or concerns. (#[phone]) OBJECTIVE: INR Date Value Ref Range Status 06/07/2019 2.70 (H) 0.86 - 1.14 Final Comment: This [...] less than 2. Anticoagulation Summary As of 06/07/2019 INR goal: 2.0-3.0 TTR: 70.6 % (1 y) INR used for dosin.70 (06/07/2019) Warfarin maintenance plan: 5 mg (5 mg x 1) every Wed; 7.5 mg (7.5 mg x 1) all other days Full warfarin instructions: 5 mg every Wed; 7.5 mg all other days Weekly warfarin total: 50 mg Plan last modified: Hilda Burch RN (05/14/2019) Next INR check: 06/21/2019 Priority: Maintenance Target end date: Indications Long-term (current) use of anticoagulants [Z79.01] [Z79.01] Embolism and thrombosis (H) (Resolved) [I74.9] Anticoagulation Episode Summary INR check location: Preferred lab: Send INR reminders to: [facility] Comments: TAL EVALUATOR documented in this encounter Plan of Treatment Upcoming Encounters Date Type Specialty Care Team Description 05/20/2022 Lab Lab documented as of this encounter Visit Diagnoses Diagnosis intermission coordinator current use of anticoagulant t herapy documented in this encounter Care Teams Boarder Steam Relationship Specialty Start Date End Date Froylan Louise MD PCP - General Family Practice 02/22/14 Froylan Louise MD Assigned PCP 03/13/14 2 documented as of this encounter
--- OUTSIDE RECORDS SUMMARY | 2022-05-15 22:27 | XMS_ITS | Encounter Summary ---
:1955 Author Organization [facility] [facility] Address [address] [place] [address] Care Team Providers Name Role Phone Froylan Louise MD Primary Care Provider Unavailable Froylan Louise MD Unavailable Unavailable Reason for Visit Reason Comments Medication Refill Encounter Details Date Type Department Care Team Description 06/29/2019 Refill [facility] Froylan Louise Ra, MD Medication Refill [address] [address] Social History Tobacco [...] containing 4 or more times a w [place] 05/25/2021 alcohol? How many drinks containing alcohol [...] you attend sikhism or Patient refused 2020 yazidi services? Do [...] Telephone Encounter - Wendi Lindsay RN - 06/29/2019 8:57 AM CST LMTRC Why needing? Pt also needs to schedule an appt with rheumatology Wendi Lindsay RN, BSN INAL CLERK documented in this encounter Plan of Treatment Upcoming Encounters Date Type Specialty Care Team Description 05/20/2022 Lab Lab documented as of this encounter Visit Diagnoses Diagnosis Inflammatory arthritis Unspecified inflammatory polyarthropathy documented in this encounter Care Teams Space Systems Operations Craftsman Relationship Specialty Start Date End Date Froylan Louise MD PCP - General Family Practice 02/22/14 Froylan Louise MD Assigned PCP 03/13/14 2 documented as of this encounter
--- OUTSIDE RECORDS SUMMARY | 2022-05-15 22:27 | XMS_ITS | Encounter Summary ---
:1955 Author Organization [facility] Address [address] [place] [address] Care Team Providers Name Role Phone Froylan Louise MD Primary Care Provider Unavailable Froylan Louise MD Unavailable Unavailable Reason for Visit Reason Onset Date Comments INR RESULTS 08/23/2019 Encounter Details Date Type Department Care Team Description 08/23/2019 Telephone [facility] Froylan Louise Ra, MD INR RESULTS [address] [address] Social History Tobacco Use [...] or more times a w [place] 05/25/2021 alcohol? How many drinks containing alcohol [...] you attend baptist or Patient refused 2020 pentecostalism services? Do [...] Telephone Encounter - Monica Farley RN - 08/23/2019 3:50 PM CST ANTICOAGULATION MANAGEMENT Patient Name: Virgil Christine Date: 08/23/2019 ASSESSMENT /SUBJECTIVE: Today's INR result of 2.80 is therapeutic. Goal INR of 2.0-3.0 ??? Warfarin dose taken: Warfarin taken as previously instructed ??? Diet: No new diet changes affecting INR ??? Medication changes/ interactions: No new medications/supplements affecting INR ??? Previous INR: supraTherapeutic ??? S/S of bleeding or thromboembolism: No ??? New injury or illness: No ??? Upcoming surgery, procedure or cardioversion: No ??? Additional findings: none PLAN: Spoke with Virgil regarding INR result and instructed: Warfarin Dosing Instructions: Continue your current warfarin dose Instructed patient to follow up no later than: 4 weeks Lab visit scheduled Education provided: Estella Herman verbalizes understanding and agrees to warfarin dosing plan. Instructed to call the Anticoagulation Clinic for any changes, questions or concerns. (#[phone]) OBJECTIVE: INR Date Value Ref Range Status 08/23/2019 2.80 (H) 0.86 - 1.14 Final Comment: [...] less than 2. Anticoagulation Summary As of 08/23/2019 INR goal: 2.0-3.0 TTR: 71.5 % (1 y) INR used for dosin.80 (08/23/2019) Warfarin maintenance plan: 5 mg (5 mg x 1) every Wed; 7.5 mg (7.5 mg x 1) all other days Full warfarin instructions: 5 mg every Wed; 7.5 mg all other days Weekly warfarin total: 50 mg Plan last modified: Hilda Burch RN (05/14/2019) Next INR check: 09/20/2019 Priority: Maintenance Target end date: Indications Long-term (current) use of anticoagulants [Z79.01] [Z79.01] Embolism and thrombosis (H) (Resolved) [I74.9] Anticoagulation Episode Summary INR check location: Preferred lab: Send INR reminders to: [facility]ERRER[facility] Comments: UTER NUMERICAL CONTROL GRINDER documented in this encounter Plan of Treatment Upcoming Encounters Date Type Specialty Care Team Description 05/20/2022 Lab Lab documented as of this encounter Visit Diagnoses Diagnosis radiology asst current use of anticoagulant t herapy documented in this encounter Care Teams Manager Managing Relationship Specialty Start Date End Date Froylan Louise MD PCP - General Family Practice 02/22/14 Froylan Louise MD Assigned PCP 03/13/14 2 documented as of this encounter
--- OUTSIDE RECORDS SUMMARY | 2022-05-15 22:27 | XMS_ITS | Encounter Summary ---
:1955 Author Organization [facility] Address [address] [place] [address] Care Team Providers Name Role Phone Froylan Louise MD Primary Care Provider Unavailable Froylan Louise MD Unavailable Unavailable Encounter Details Date Type Department Care Team Description 08/05/2019 Orders Only [facility] Wily g term current use of anticoagulants with INR goal of 2.0-3.0; [facility] DVT (deep venous thrombosis) (H) [address] [place] [address] Social History Tobacco Use [...] you attend christianity or Patient refused 2020 yarsanism services? Do [...] Date/Time Associated Diagnosis Comme nts INR Routine 08/05/2019 3:51 PM oil heaterman current use of Results for this WINDOW SHADE ESTIMATOR anticoagulants with INR proc edure are in goal of 2.0-3.0 the results DVT (deep venous section. thrombosis) (H) documented in this encounter Results (ABNORMAL) INR (08/05/2019 3:51 PM WINDOW SHADE ESTIMATOR) athologist Signature INR 3.40 (H) 0.86 - 1.14 08/05/2019 [place] 4:07 PM [facility] Comment: This test is intended for monitoring Cou madin therapy. ??Results are not accurate in patients with prolonged INR due to factor deficiency. Specimen Anatomical Collection Method Collection Time Receive d Time (Source) Location / / Volume Laterality Blood specimen 08/05/2019 3:51 PM 020 3:56 (specimen) WINDOW SHADE ESTIMATOR PM WINDOW SHADE ESTIMATOR Froylan Louise MD LAB - BLOOD ORDERABLES Performing Organization Address City/State/ZIP Code Phon e Number [facility] [address] [place] [address] documented in this encounter Visit Diagnoses Diagnosis oil heaterman current use of anticoagulants with INR goal of 2.0-3.0 DVT (deep venous thrombosis) (H) Acute venous embolism and thrombosis of unspecified deep vessels of lower extremity documented in this encounter Care Teams Sizing Machine Operator Relationship Specialty Start Date End Date Froylan Louise MD PCP - General Family Practice 02/22/14 Froylan Louise MD Assigned PCP 03/13/14 2 documented as of this encounter
--- OUTSIDE RECORDS SUMMARY | 2022-05-15 22:27 | XMS_ITS | Encounter Summary ---
:1955 Author Organization [facility] Address [address] [place] [address] Care Team Providers Name Role Phone Froylan Louise MD Primary Care Provider Unavailable Froylan Louise MD Unavailable Unavailable Reason for Visit Reason Comments Medication Refill Encounter Details Date Type Department Care Team Description 06/24/2019 Refill [facility] Froylan Louise Ra, MD Medication Refill [address] [address] Social History Tobacco Use [...] you attend adventist or Patient refused 2020 sabianism services? Do [...] Telephone Encounter - Wendi Lindsay RN - 06/24/2019 4:26 PM CST Spoke with patient and he states he tried the QVAR and this did not work for him at all and would like to go back to the S[facility] Please advise Wendi Lindsay RN, BSN H NP documented in this encounter Plan of Treatment Upcoming Encounters Date Type Specialty Care Team Description 05/20/2022 Lab Lab documented as of this encounter Visit Diagnoses Diagnosis Mild persistent asthma without complicat ion Unspecified asthma documented in this encounter Care Teams Spring Manufacturing Set Up Technician Relationship Specialty Start Date End Date Froylan Louise MD PCP - General Family Practice 02/22/14 Froylan Louise MD Assigned PCP 03/13/14 2 documented as of this encounter
--- OUTSIDE RECORDS SUMMARY | 2022-05-15 22:27 | XMS_ITS | Encounter Summary ---
:1955 Author Organization [place] Address [address] [place] [address] Care Team Providers Name Role Phone Froylan Louise MD Primary Care Provider Unavailable Froylan Louise MD Unavailable Unavailable Reason for Visit Reason Onset Date Comments Refill Request 06/17/2019 Encounter Details Date Type Department Care Team Description [facility] Ra, MD Refill Request [address] [address] Social History Tobacco Use [...] you attend yarsanism or Patient refused 2020 roman catholic services? [...] Telephone Encounter - Wendi Lindsay RN - 06/18/2019 7:16 AM CST Per JENNIFER: History of mild persistent asthma, controlled. He is using the Symbicort inhaler; however, he would like to transition to Qvar and atrovent due to cost. Denies cough, shortness of breath. Wendi Lindsay RN, BSN ES CLERK documented in this encounter Plan of Treatment Upcoming Encounters Date Type Specialty Care Team Description 05/20/2022 Lab Lab documented as of this encounter Visit Diagnoses Diagnosis Mild persistent asthma without complicat ion Unspecified asthma documented in this encounter Care Teams Faceter Relationship Specialty Start Date End Date Froylan Louise MD PCP - General Family Practice 02/22/14 Froylan Louise MD Assigned PCP 03/13/14 2 documented as of this encounter
--- OUTSIDE RECORDS SUMMARY | 2022-05-15 22:27 | XMS_ITS | Encounter Summary ---
:1955 Author Organization [place] Address [address] [place] [address] Care Team Providers Name Role Phone Froylan Louise MD Primary Care Provider Unavailable Froylan Louise MD Unavailable Unavailable Encounter Details Date Type Department Care Team Description 08/05/2019 Travel Social History Tobacco Use Types Packs/Day Years Used Date Smoking Tobacco: Former Cigarettes 2 25 Quit : 08/04/2006 Smokeless Tobacco: Never Comments: 2004 Alcohol Use Standard Drinks/Week Comments Yes 0 (1 standard drink = 0.6 oz pure alcoho l) 4 BEERS A WEEK Alcohol Habits Answer Date Recorded How often do you have a drink containing 4 or more times a w [place] 05/25/2021 alcohol? How many drinks containing alcohol [...] you attend methodist or Patient refused 2020 roman catholic services? [...] on filedocumented in this encounter Care Teams Cook Fishing Vessel Relationship Specialty Start Date End Date Froylan Louise MD PCP - General Family Practice 02/22/14 Froylan Louise MD Assigned PCP 03/13/14 2 documented as of this encounter
--- OUTSIDE RECORDS SUMMARY | 2022-05-15 22:27 | XMS_ITS | Encounter Summary ---
:1955 Author Organization [place] Address [address] [place] [address] Care Team Providers Name Role Phone Froylan Louise MD Primary Care Provider Unavailable Froylan Louise MD Unavailable Unavailable Encounter Details Date Type Department Care Team Description 05/31/2019 Travel Social History Tobacco Use Types Packs/Day Years Used Date Smoking Tobacco: Former Cigarettes 2 25 Quit : 08/04/2006 Smokeless Tobacco: Never Comments: 2005 Alcohol Use Standard Drinks/Week Comments Yes 0 (1 standard drink = 0.6 oz pure alcoho l) 4 BEERS A WEEK Alcohol Habits Answer Date Recorded How often do you have a drink containing 4 or more times a w [place] 05/25/2021 alcohol? How many drinks containing alcohol [...] you attend methodist or Patient refused 2020 taoist services? Do [...] on filedocumented in this encounter Care Teams Room Service Runner Relationship Specialty Start Date End Date Froylan Louise MD PCP - General Family Practice 02/22/14 Froylan Louise MD Assigned PCP 03/13/14 2 documented as of this encounter
--- OUTSIDE RECORDS SUMMARY | 2022-05-15 22:27 | XMS_ITS | Encounter Summary ---
:1955 Author Organization [place] Address [address] [place] [address] Care Team Providers Name Role Phone Froylan Louise MD Primary Care Provider Unavailable Froylan Louise MD Unavailable Unavailable Reason for Visit Reason Onset Date Comments Anticoagulation 07/13/2019 Encounter Details Date Type Department Care Team Description 07/13/2019 Telephone [facility] Froylan Louise Ra, MD [address] [address] Social History Tobacco Use [...] you attend scientologist or Patient refused 2020 islam services? Do [...] this encounter Miscellaneous Notes Telephone Encounter - [facility] RN - 07/13/2019 12:14 PM CST Pt calling in to report he just broke his tooth at work and is on his way to the dentist. He is inquiring how being on warfarin would impact this. Advised pt there should be no changes to his warfarin,but to let the dentist know that he takes warfarin. No further questions at this time. NCED PRACTICE PSYCHIATRIC NURSE documented in this encounter Plan of Treatment Upcoming Encounters Date Type Specialty Care Team Description 05/20/2022 Lab Lab documented as of this encounter Visit Diagnoses Not on filedocumented in this encounter Care Teams Lathe Tender Relationship Specialty Start Date End Date Froylan Louise MD PCP - General Family Practice 02/22/14 Froylan Louise MD Assigned PCP 03/13/14 2 documented as of this encounter
--- OUTSIDE RECORDS SUMMARY | 2022-05-15 22:27 | XMS_ITS | Encounter Summary ---
:1955 Author Organization [place] Address [address] [place] [address] Care Team Providers Name Role Phone Froylan Louise MD Primary Care Provider Unavailable Froylan Louise MD Unavailable Unavailable Encounter Details Date Type Department Care Team Description 08/23/2019 Orders Only [facility] Wily g term current use of anticoagulants with INR goal of 2.0-3.0; [facility] DVT (deep venous thrombosis) (H) [address] [place] [address] Social History Tobacco Use [...] containing 4 or more times a w [place] 05/25/2021 alcohol? How many drinks containing alcohol [...] you attend catholic or Patient refused 2020 muslim services? Do [...] Associated Diagnosis Comme nts CAPILLARY BLOOD Routine 08/23/2019 3:32 PM termite helper current u se Results for this COLLECTION PRINCIPAL ENGINEER of anticoagulants with proce dure are in INR goal of 2.0-3.0 the resu lts section. INR Routine 08/23/2019 3:32 PM [facility] current use Results for this PRINCIPAL ENGINEER of anticoagulants with proce dure are in INR goal of 2.0- 3.0 the results DVT (deep venous section. thrombosis) (H) documented in this encounter Results Capillary Blood Collection (08/23/2019 3:32 PM PRINCIPAL ENGINEER) Patholo gist Method Time Signature Capillary Capillary 08/23/2019 [place] Blood collection 3:33 PM PRINCIPAL ENGINEER CLINICS Collection [facility] Specimen Anatomical Collection Method Collection Time Receive d Time (Source) Location / / Volume Laterality 08/23/2019 3:32 PM 0 3:33 PRINCIPAL ENGINEER PM PRINCIPAL ENGINEER Froylan Louise MD LAB - LAB COMMUNICATION Performing Organization Address City/[facility]/ZIP [facility] Phon e Number [facility] [address] [place] [address] (ABNORMAL) INR (08/23/2019 3:32 PM PRINCIPAL ENGINEER) P athologist Signature INR 2.80 (H) 0.86 - 1.14 08/23/2019 [place] 3:42 PM PRINCIPAL ENGINEER [facility] Comment: This test is intended for monitoring Cou madin therapy. ??Results are not accurate in patients with prolonged INR due to factor deficiency. Specimen Anatomical Collection Method Collection Time Receive d Time (Source) Location / / Volume Laterality Blood specimen 08/23/2019 3:32 PM 020 3:33 (specimen) PRINCIPAL ENGINEER PM PRINCIPAL ENGINEER Froylan Louise MD LAB - BLOOD ORDERABLES Performing Organization Address City/[facility]/ZIP [facility] Phon e Number [facility] [address] [place] [address] documented in this encounter Visit Diagnoses Diagnosis [facility] current use of anticoagulants with INR goal of 2.0-3.0 DVT (deep venous thrombosis) (H) Acute venous embolism and thrombosis of unspecified deep vessels of lower extremity documented in this encounter Care Teams Sample Taker Operator Relationship Specialty Start Date End Date Froylan Louise MD PCP - General Family Practice 02/22/14 Froylan Louise MD Assigned PCP 03/13/14 2 documented as of this encounter
--- OUTSIDE RECORDS SUMMARY | 2022-05-15 22:27 | XMS_ITS | Encounter Summary ---
:1955 Author Organization [place] Address [address] [place] [address] Care Team Providers Name Role Phone Froylan Louise MD Primary Care Provider Unavailable Froylan Louise MD Unavailable Unavailable Reason for Visit Reason Onset Date Comments Referral 06/02/2019 Rheum ref/pt schedul ed elsewhere - pt declined Encounter Details Date Type Department Care Team Description 06/02/2019 Telephone [facility] Unknown, Provider Refer [facility] (Rheum ref/pt Rheumatology Clinic schedule d elsewhere - [place] pt declined) [address] [place] [address] Social History Tobacco Use Types Packs/Day Years Used Date Smoking Tobacco: Former Cigarettes 2 25 Quit : 08/04/2006 Smokeless Tobacco: Never Comments: 2004 Alcohol Use Standard Drinks/Week Comments Yes 0 (1 standard drink = 0.6 oz pure alcoho l) 4 BEERS A WEEK Alcohol Habits Answer Date Recorded How often do you have a drink containing 4 or more times a w [place] 05/25/2021 alcohol? How many drinks containing alcohol [...] you attend orthodoxy or Patient refused 2020 mormonism services? Do [...] this encounter Miscellaneous Notes Telephone Encounter - Bear Arreola RN - 07/07/2019 5:00 PM CST Images from the original note were not included. Jovita Walton Lee A, RN Cc: Amee Baker CMA Caller: Unspecified (1 month ago) ?? Patient is scheduled to be seen on 07/15/19 at [facility]. ECTOR BOOTH OPERATOR Telephone Encounter - Jovita Walton - 07/06/2019 4:27 PM CST LVM for patient to call and schedule. ECTOR BOOTH OPERATOR Telephone Encounter - Bear Arreola RN - 06/29/2019 6:21 PM CST Referral received for dx of inflammatory arthritis from Dr Froylan Louise. Hx of Ulcerative colitis, DVT and PE, RHEUM RESULTS Latest Ref Rng & Units 06/05/2018 01/09/2019 05/31/2019 SED RATE 0 - 20 mm/h - 27(H) 15 CRP, INFLAMMATION 0.0 - 8.0 mg/L 60.0(H) 47.0(H) 21.0(H) RHEUMATOID FACTOR <20 IU/mL - <20 - Rheumatoid Factor Date Value Ref Range Status 01/09/2019 <20 <20 IU/mL Final Cyclic Citrullinated Peptide Antibody, IgG Date Value Ref Range Status 01/09/2019 1 <7 U/mL Final Comment: Negative Cardiolipin Antibody IgG Date Value Ref Range Status 06/05/2018 <1.6 0.0 - 19.9 GPL-U/mL Final Comment: Negative Cardiolipin Antibody IgM Date Value Ref Range Status 06/05/2018 2.0 0.0 - 19.9 MPL-U/mL Final Comment: Negative Per Dr Louise's office note dated 05/31/19 Patient with significant joint swelling consistent with inflammatory arthritis. He continues to have bilateral hand, wrist, shoulder and knee pain. Due to pain, it's difficult to move in the morning and it's difficult to get out of his car. In addition, the swelling prevents him from making a fist with his hand. The symptoms improved with a trial of prednisone this past summer. 1. Inflammatory arthritis Patient with inflammatory arthritis of the MCPs and wrists right greater than left as well as shoulder pains. This was markedly improved with prednisone. Referred to rheumatology but was unable to makefollow-up yet. For short-term relief we will have repeat trial of prednisone. Recommend follow-up with rheumatology for possible seronegative rheumatoid arthritis versus arthritis with inflammatory bowel disease versus other. JORGE Yang RN Rheumatology [place] [employer] [facility] ECTOR BOOTH OPERATOR Telephone Encounter - Justyna Miller - 06/02/2019 10:58 AM CST [facility] Phone Message May a detailed message be left on voicemail: no Reason for Call: Other: DIRECTOR OF CHANNEL MARKETING for Rheumatology for Inflammatory arthritis [M19.90].referred by Dr. Louise. Rec/ref in [employer] Action Taken: Message routed to: [facility] Rheumatology ECTOR BOOTH OPERATOR documented in this encounter Plan of Treatment Upcoming Encounters Date Type Specialty Care Team Description 05/20/2022 Lab Lab documented as of this encounter Visit Diagnoses Not on filedocumented in this encounter Care Teams 3D Technologist Relationship Specialty Start Date End Date Froylan Louise MD PCP - General Family Practice 02/22/14 Froylan Louise MD Assigned PCP 03/13/14 2 documented as of this encounter
--- OUTSIDE RECORDS SUMMARY | 2022-05-15 22:27 | XMS_ITS | Encounter Summary ---
:1955 Author Organization [place] Address [address] [place] [address] Care Team Providers Name Role Phone Froylan Louise MD Primary Care Provider Unavailable Froylan Louise MD Unavailable Unavailable Encounter Details Date Type Department Care Team Description 06/21/2019 Travel Social History Tobacco Use Types Packs/Day [...] you attend baptist or Patient refused 2020 voodoo services? Do [...] on filedocumented in this encounter Care Teams Baby Formula Worker Relationship Specialty Start Date End Date Froylan Louise MD PCP - General Family Practice 02/22/14 Froylan Louise MD Assigned PCP 03/13/14 2 documented as of this encounter
--- OUTSIDE RECORDS SUMMARY | 2022-05-15 22:27 | XMS_ITS | Encounter Summary ---
:1955 Author Organization [place] Address [address] [place] [address] Care Team Providers Name Role Phone Froylan Louise MD Primary Care Provider Unavailable Froylan Louise MD Unavailable Unavailable Encounter Details Date Type Department Care Team Description 06/07/2019 Orders Only [facility] Wily g term current use of anticoagulants with INR goal of 2.0-3.0; [facility] DVT (deep venous thrombosis) (H) [address] [place] [address] Social History Tobacco Use [...] containing 4 or more times a w [place] 05/25/2021 alcohol? How many drinks containing alcohol [...] you attend sikhism or Patient refused 2020 hindu services? 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 thrombosis) (H) documented in this encounter Results (ABNORMAL) INR (06/07/2019 3:57 PM STEAM SHOVEL OPERATOR) athologist Signature INR 2.70 (H) 0.86 - 1.14 06/07/2019 [place] 4:05 PM [facility] Comment: This test is intended for monitoring Cou madin therapy. ??Results are not accurate in patients with prolonged INR due to factor deficiency. Specimen Anatomical Collection Method Collection Time Receive d Time (Source) Location / / Volume Laterality Blood specimen 06/07/2019 3:57 PM 019 3:58 (specimen) STEAM SHOVEL OPERATOR PM STEAM SHOVEL OPERATOR Froylan Louise MD LAB - BLOOD ORDERABLES Performing Organization Address City/State/ZIP Code Phon e Number [facility] [address] 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
--- OUTSIDE RECORDS SUMMARY | 2022-05-15 22:27 | XMS_ITS | Encounter Summary ---
:1955 Author Organization [facility] Address [address] [place] [address] Care Team Providers Name Role Phone Froylan Louise MD Primary Care Provider Unavailable Froylan Louise MD Unavailable Unavailable Encounter Details Date Type Department Care Team Description 05/31/2019 Orders Only [facility] Wily g term current use of anticoagulants with INR goal of 2.0-3.0; [facility] DVT (deep venous thrombosis) (H) [address] [place] [address] Social History Tobacco [...] 4 or more times a w [place] 05/25/2021 alcohol? How many drinks containing alcohol [...] you attend taoist or Patient refused 2020 congregation services? Do [...] Associated Diagnosis Comme nts CAPILLARY BLOOD Routine 05/31/2019 1:44 PM detention current u se Results for this COLLECTION MATERIALS SCHEDULER of anticoagulants with proce dure are in INR goal of 2.0-3.0 the resu lts section. INR Routine 05/31/2019 1:44 PM keno terminal operator current use Results for this MATERIALS SCHEDULER of anticoagulants with proce dure are in INR goal of 2.0- 3.0 the results DVT (deep venous section. thrombosis) (H) documented in this encounter Results Capillary Blood Collection (05/31/2019 1:44 PM MATERIALS SCHEDULER) Patholo gist Method Time Signature Capillary Capillary 05/31/2019 [place] Blood collection 1:58 PM MATERIALS SCHEDULER CLINICS Collection [facility] Specimen Anatomical Collection Method Collection Time Receive d Time (Source) Location / / Volume Laterality 05/31/2019 1:44 PM 9 1:45 MATERIALS SCHEDULER PM MATERIALS SCHEDULER Froylan Louise MD LAB - LAB COMMUNICATION Performing Organization Address City/[facility] Phon e Number [facility] [address] [place] [address] (ABNORMAL) INR (05/31/2019 1:44 PM MATERIALS SCHEDULER) P athologist Signature INR 2.40 (H) 0.86 - 1.14 05/31/2019 [place] 1:57 PM MATERIALS SCHEDULER [facility] Comment: This test is intended for monitoring Cou madin therapy. ??Results are not accurate in patients with prolonged INR due to factor deficiency. Specimen Anatomical Collection Method Collection Time Receive d Time (Source) Location / / Volume Laterality Blood specimen 05/31/2019 1:44 PM 019 1:45 (specimen) MATERIALS SCHEDULER PM MATERIALS SCHEDULER Froylan Louise MD LAB - BLOOD ORDERABLES Performing Organization Address [facility] Phon e Number [facility] [address] [place] [address] documented in this encounter Visit Diagnoses Diagnosis detention current use of anticoagulants with INR goal of 2.0-3.0 DVT (deep venous thrombosis) (H) Acute venous embolism and thrombosis of unspecified deep vessels of lower extremity documented in this encounter Care Teams Fishing Tackle Repairer Relationship Specialty Start Date End Date Froylan Louise MD PCP - General Family Practice 02/22/14 Froylan Louise MD Assigned PCP 03/13/14 2 documented as of this encounter
--- OUTSIDE RECORDS SUMMARY | 2022-05-15 22:27 | XMS_ITS | Encounter Summary ---
:1955 Author Organization [place] Address [address] [place] [address] Care Team Providers Name Role Phone Froylan Louise MD Primary Care Provider Unavailable Froylan Louise MD Unavailable Unavailable Reason for Visit Reason Onset Date Comments Nurse Advice Line 06/24/2019 popped blood vessel Encounter Details Date Type Department Care Team Description 06/24/2019 Telephone [facility] Froylan Louise Nurs e Advice Line [facility] Chhaya VILLASEÑOR (popped blood vessel) [address] [place] [address] Social History Tobacco Use Types [...] you attend druze or Patient refused 2020 sabianist services? Do [...] Encounter - Wendi Lindsay RN - 06/24/2019 4:30 PM CST Pt calling stating he noticed that he has a possible popped blood vessel in his eye. The inner whitepart of one eye is all red. His recent INR is in range. Advised to watch this for the next 1-2 days and if it gets worse he must be seen or if he notices that he is having bruising elsewhere. He deniesany visual changes. Pt expressed understanding Wendi Lindsay RN, BSN ADVOCATE documented in this encounter Plan of Treatment Upcoming Encounters Date Type Specialty Care Team Description 05/20/2022 Lab Lab documented as of this encounter Visit Diagnoses Not on filedocumented in this encounter Care Teams Ophthalmology Surgical Technician Relationship Specialty Start Date End Date Froylan Louise MD PCP - General Family Practice 02/22/14 Froylan Louise MD Assigned PCP 03/13/14 2 documented as of this encounter
--- OUTSIDE RECORDS SUMMARY | 2022-05-15 22:27 | XMS_ITS | Encounter Summary ---
:1955 Author Organization [facility] [place] Address [address] [place] [address] Care Team Providers Name Role Phone Froylan Louise MD Primary Care Provider Unavailable Froylan Louise MD Unavailable Unavailable Reason for Visit Reason Onset Date Comments INR RESULTS 08/05/2019 Encounter Details Date Type Department Care Team Description 08/05/2019 Telephone [facility] Froylan Louise Ra, MD INR RESULTS [address] [address] Social History Tobacco Use [...] you attend pentecostalism or Patient refused 2020 muslim services? Do [...] Telephone Encounter - Monica Farley RN - 08/05/2019 4:17 PM CST ANTICOAGULATION MANAGEMENT Patient Name: Virgil Christine Date: 08/05/2019 ASSESSMENT /SUBJECTIVE: Today's INR result of 3.40 is supratherapeutic. Goal INR of 2.0-3.0 ??? Warfarin dose taken: Warfarin taken as previously instructed ??? Diet: No new diet changes affecting INR ??? Medication changes/ interactions: No new medications/supplements affecting INR ??? Previous INR: Therapeutic ??? S/S of bleeding or thromboembolism: No ??? New injury or illness: Yes: had tooth extracted after breaking tooth at work ??? Upcoming surgery, procedure or cardioversion: No ??? Additional findings: None PLAN: Spoke with Virgil regarding INR result and instructed: Warfarin Dosing Instructions: hold tonight then Continue your current warfarin dose Instructed patient to follow up no later than: 2 weeks Lab visit scheduled Education provided: Yes: inflammation from extraction can cause INR to increase, monitor for bleeding Virgil verbalizes understanding and agrees to warfarin dosing plan. Instructed to call the Anticoagulation Clinic for any changes, questions or concerns. (#[phone]) OBJECTIVE: INR Date Value Ref Range Status 08/05/2019 3.40 (H) 0.86 - 1.14 Final Comment: [...] less than 2. Anticoagulation Summary As of 08/05/2019 INR goal: 2.0-3.0 TTR: 73.4 % (1 y) INR used for dosin.40! (08/05/2019) Warfarin maintenance plan: 5 mg (5 mg x 1) every Wed; 7.5 mg (7.5 mg x 1) all other days Full warfarin instructions: 08/05: Hold; Otherwise 5 mg every Wed; 7.5 mg all other days Weekly warfarin total: 50 mg Plan last modified: Hilda Burch RN (05/14/2019) Next INR check: 08/19/2019 Priority: Maintenance Target end date: Indications Long-term (current) use of anticoagulants [Z79.01] [Z79.01] Embolism and thrombosis (H) (Resolved) [I74.9] Anticoagulation Episode Summary INR check location: Preferred lab: Send INR reminders to: [facility] Comments: WORKER documented in this encounter Plan of Treatment Upcoming Encounters Date Type Specialty Care Team Description 05/20/2022 Lab Lab documented as of this encounter Visit Diagnoses Diagnosis terminal 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
--- OUTSIDE RECORDS SUMMARY | 2022-05-15 22:28 | XMS_ITS | Encounter Summary ---
:1955 Author Organization [place] Address [address] [place] [address] Care Team Providers Name Role Phone Froylan Louise MD Primary Care Provider Unavailable Froylan Louise MD Unavailable Unavailable Esthela Corea RN Unavailable Unavailable So Dodd MD Primary Care Provider Froylan Louise MD Primary Care Provider Unavailable So Dodd MD Unavailable So Dodd MD Primary Care Provider Reason for Visit Reason Onset Date Comments Call Back 02/15/2019 INR Encounter Details Date Type Department Care Team Description 02/15/2019 [facility] Froylan Louise Ra, MD Call Back (INR) [place] [id number] [place] [phone] Social History Tobacco Use Types [...] containing 4 or more times a w [place] 05/25/2021 alcohol? How many drinks containing [...] you attend buddhist or Patient refused 2020 latter day services? [...] Telephone Encounter - Esthela Corea RN - 02/17/2019 9:32 AM CDT LM again today for call back. Will close encounter and await call back Esthela Corea RN Telephone Encounter - Esthela Corea RN - 02/16/2019 9:26 AM CDT LM for call back Esthela Corea RN Telephone Encounter - Esthela Corea RN - 02/15/2019 2:10 PM CDT LM for call back- Esthela Corea RN Telephone Encounter - Marina Randhawa - 02/15/2019 1:52 PM CDT Patient called to discuss INR please call back at [phone] Marina Randhawa-Patient Rep documented in this encounter Plan of Treatment Upcoming Encounters Date Type Specialty Care Team Description 05/20/2022 Lab Lab documented as of this encounter Visit Diagnoses Not on filedocumented in this encounter Additional Health Concerns Infection Onset Date Last Indicated Resolved Time Rule Out COVID-19 10/31/2019 10/31/2019 11/01/2019 1:0 8 PM CDT documented as of this encounter Care Teams Shaker Out Relationship Specialty Start Date End Date Froylan Louise MD PCP - General Family Practice 02/22/14 So Dodd MD PCP - General Family Medicine 01/10/22 01/17/22 [address] [place] [address] Froylan Louise MD PCP - General Family Medicine 01/18/22 So Dodd MD PCP - General Family Medicine 02/21/22 [address] [place], [place] [id number] Froylan Louise MD Assigned PCP 03/13/14 2 Esthela Corea, RN Personal Advocate & Liaison Family Medicine 10/16 (PAL) So Dodd MD Assigned PCP 01/05/22 [address] [place], [place] [id number] documented as of this encounter
--- OUTSIDE RECORDS SUMMARY | 2022-05-15 22:28 | XMS_ITS | Encounter Summary ---
:1955 Author Organization [place] Address [facility] [place] [address] Care Team Providers Name Role Phone Froylan Louise MD Primary Care Provider Unavailable Froylan Louise MD Unavailable Unavailable Reason for Visit Reason Onset Date Comments Refill Request 01/20/2019 terazosin (HYTRIN) 2 MG capsule Refill Request 01/20/2019 loperamide (IMODIUM) 2 MG capsule Refill Request 01/20/2019 triamcinolone (KENAL OG) 0.1 % external cream Refill Request 01/20/2019 warfarin (COUMADIN) 5 MG tablet Encounter Details Date Type Department Care Team Description 01/20/[address] [facility] Froylan Louise Ra, Refill Request Chhaya VILLASEÑOR (terazosin (HYTRIN) 2 MG [id number] [facility] capsule); [place] [address] (loperamide (IMODIUM) MG capsule); Re fill Request (triamc inolone (KENALOG) 0.1 % external cream); Refill Request (warfarin (COUM BLAIR) 5 MG tablet) Social History Tobacco Use Types Packs/Day Years [...] you attend holiness or Patient refused 2020 orthodox services? Do [...] Telephone Encounter - Esthela Corea RN - 01/21/2019 10:18 AM CDT Prescription approved per [facility] Refill Protocol. No RF need on the Hyterrance Corea RN Telephone Encounter - Phillip Pritchard - 01/20/2019 8:38 PM CDT Requested Prescriptions Pending Prescriptions Disp Refills ??? terazosin (HYTRIN) 2 MG capsule [Pharmacy Med Name: TERAZOSIN 2 MG CAPSULE] 90 capsule 1 Sig: TAKE 1 CAPSULE BY MOUTH AT BEDTIME Last Written Prescription Date: 10/09/18 Last Fill Quantity: 90 cap, # refills: 1 Last office visit: 01/09/2019 with prescribing provider: Dani Future Office Visit: Alpha Blockers Failed - 01/20/2019 8:10 PM Failed - Patient does not have Tadalafil, Vardenafil, or Sildenafil on their medication list Passed - Blood pressure under 140/90 in past 12 months BP Readings from Last 3 Encounters: 01/09/19 134/78 08/19/18 140/68 08/10/18 144/72 Passed - Recent (12 mo) or future (30 days) visit within the authorizing provider's specialty Patient had office visit in the last 12 months or has a visit in the next 30 days with authorizing provider or within the authorizing provider's specialty. See Patient Info tab in inbasket, or Choose Columns in Meds & Orders section of the refill encounter. Passed - Medication is active on med list Passed - Patient is 18 years of age or older ??? loperamide (IMODIUM) 2 MG capsule [Pharmacy Med Name: LOPERAMIDE 2 MG CAPSULE] 480 capsule 1 Sig: TAKE 3-4 CAPSULES (6-8 MG) BY MOUTH 3 TIMES DAILY NEEDED FOR DIARRHEA Last Written Prescription Date: 06/22/18 Last Fill Quantity: 480 cap, # refills: 1 Last office visit: 01/09/2019 with prescribing provider: Dani Deng Office Visit: There is no refill protocol information for this order ??? triamcinolone (KENALOG) 0.1 % external cream [Pharmacy Med Name: TRIAMCINOLONE 0.1% CREAM] 30 g 0 Sig: APPLY TOPICALLY TWICE DAILY Last Written Prescription Date: 12/07/18 Last Fill Quantity: 30 g, # refills: 0 Last office visit: 01/09/2019 with prescribing provider: Dani Deng Office Visit: Topical Steroids and Nonsteroidals Protocol Passed - 01/20/2019 8:10 PM Passed - Patient is age 6 or older Passed - Authorizing prescriber's most recent note related to this medication read. If refill request is for ophthalmic use, please forward request to provider for approval. Passed - High potency steroid not ordered Passed - Recent (12 mo) or future (30 days) visit within the authorizing provider's specialty Patient had office visit in the last 12 months or has a visit in the next 30 days with authorizing provider or within the authorizing provider's specialty. See Patient Info tab in inbasket, or Choose Columns in Meds & Orders section of the refill encounter. Passed - Medication is active on med list ??? warfarin (COUMADIN) 5 MG tablet [Pharmacy Med Name: WARFARIN SODIUM 5 MG TABLET] 39 tablet 2 Sig: TAKE 5 MG (1 TABLET) ON MON, WED, & FRI. TAKE 7.5 MG TABLET ON ALL OTHER DAYS Last Written Prescription Date: Last Fill Quantity: 90 tab, # refills: 0 Last office visit: 01/09/2019 with prescribing provider: Dani Deng Office Visit: Vitamin K Antagonists Failed - 01/20/2019 8:10 PM Failed - INR is within goal in the past 6 weeks Confirm INR is within goal in the past 6 weeks. Recent Labs Lab Test 01/15/19 INR 2.2* Passed - Recent (12 mo) or future (30 days) visit within the authorizing provider's specialty Patient had office visit in the last 12 months or has a visit in the next 30 days with authorizing provider or within the authorizing provider's specialty. See Patient Info tab in inbasket, or Choose Columns in Meds & Orders section of the refill encounter. Passed - Medication is active on med list Passed - Patient is 18 years of age or older documented in this encounter Plan of Treatment Upcoming Encounters Date Type Specialty Care Team Description 05/20/2022 Lab Lab documented as of this encounter Visit Diagnoses Diagnosis Benign prostatic hyperplasia with weak u rinary stream H/O ulcerative colitis Personal history of other diseases of di gestive system Lichen planus Acute deep vein thrombosis (DVT) of prox imal vein of both lower extremities (H) documented in this encounter Care Teams Client Liaison Relationship Specialty Start Date End Date Froylan Louise MD PCP - General Family Practice 02/22/14 Froylan Louise MD Assigned PCP 03/13/14 2 documented as of this encounter
--- OUTSIDE RECORDS SUMMARY | 2022-05-15 22:28 | XMS_ITS | Encounter Summary ---
:1955 Author Organization [place] Address [address] [place] [address] Care Team Providers Name Role Phone Froylan Louise MD Primary Care Provider Unavailable Froylan Louise MD Unavailable Unavailable Encounter Details Date Type Department Care Team Description 04/09/2019 Orders Only [facility] Wily g term current use of anticoagulants with INR goal of 2.0-3.0; [facility] DVT (deep venous thrombosis) (H) [address] [place] [address] Social History Tobacco [...] attend oriental orthodox or Patient refused 2020 restorationism services? Do [...] Associated Diagnosis Comme nts CAPILLARY BLOOD Routine 04/09/2019 3:45 PM care home current u se Results for this COLLECTION CDT of anticoagulants with proce dure are in INR goal of 2.0-3.0 the resu lts section. 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 thrombosis) (H) documented in this encounter Results Capillary Blood Collection (04/09/2019 3:45 PM CDT) [facility] gist Method Time Signature Capillary Unable to 04/09/2019 [place] Blood obtain 3:47 PM CDT [facility] Collection venipuncture, [place] capillary collection performed. Specimen Anatomical Collection Method Collection Time Receive d Time (Source) Location / / Volume Laterality 04/09/2019 3:45 PM 9 3:46 CDT PM CDT Froylan Louise MD LAB - LAB COMMUNICATION Performing Organization Address City/[facility]/ZIP Code Phon e Number [facility] [id number] [address] [facility] [place] [address] (ABNORMAL) INR (04/09/2019 3:45 PM CDT) athologist Signature INR 2.10 (H) 0.86 - 1.14 04/09/2019 [place] 3:53 PM CDT [facility] Comment: This test is intended for monitoring Cou madin therapy. ??Results are not accurate in patients with prolonged INR due to factor deficiency. Specimen Anatomical Collection Method Collection Time Receive d Time (Source) Location / / Volume Laterality Blood specimen 04/09/2019 3:45 PM 019 3:46 (specimen) CDT PM CDT Froylan Louise MD LAB - BLOOD ORDERABLES Performing Organization Address City/[facility]/ZIP Code Phon e Number [facility] [id number] [address] [facility] 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
--- OUTSIDE RECORDS SUMMARY | 2022-05-15 22:28 | XMS_ITS | Encounter Summary ---
:1955 Author Organization [place] Address [address] [place] [address] Care Team Providers Name Role Phone Froylan Louise MD Primary Care Provider Unavailable Froylan Louise MD Unavailable Unavailable Encounter Details Date Type Department Care Team Description 01/15/2019 Travel Social History Tobacco Use Types Packs/Day Years Used Date Smoking Tobacco: Former Cigarettes 2 25 Quit : 08/04/2006 Smokeless Tobacco: Never Comments: 2005 Alcohol Use Standard Drinks/Week Comments Yes 0 (1 standard drink = 0.6 oz pure alcoho l) 4 BEERS A WEEK Alcohol Habits Answer Date Recorded How often do you have a drink containing 4 or more times a w [place] 05/25/2021 alcohol? How many drinks containing alcohol [...] or relatives? How often do you attend judaism or Patient refused 2020 yarsani services? Do you belong to any clubs or Yes 05/25/2021 organizations such as judaism groups, unions, fraternal or athletic groups, or [...] on filedocumented in this encounter Care Teams Hand Cigar Maker Relationship Specialty Start Date End Date Froylan Louise MD PCP - General Family Practice 02/22/14 Froylan Louise MD Assigned PCP 03/13/14 2 documented as of this encounter
--- OUTSIDE RECORDS SUMMARY | 2022-05-15 22:28 | XMS_ITS | Encounter Summary ---
:1955 Author Organization [place] Address [address] [place] [address] Care Team Providers Name Role Phone Froylan Louise MD Primary Care Provider Unavailable Froylan Louise MD Unavailable Unavailable Encounter Details Date Type Department Care Team Description 04/09/2019 Travel Social History Tobacco Use Types Packs/Day [...] you attend judaism or Patient refused 2020 jainism services? Do [...] on filedocumented in this encounter Care Teams Service Delivery Director Relationship Specialty Start Date End Date Froylan Louise MD PCP - General Family Practice 02/22/14 Froylan Louise MD Assigned PCP 03/13/14 2 documented as of this encounter
--- OUTSIDE RECORDS SUMMARY | 2022-05-15 22:28 | XMS_ITS | Encounter Summary ---
:1955 Author Organization [place] Address [address] [place] [address] Care Team Providers Name Role Phone Froylan Louise MD Primary Care Provider Unavailable Froylan Louise MD Unavailable Unavailable Reason for Visit Reason Onset Date Comments INR RESULTS 05/14/2019 Encounter Details Date Type Department Care Team Description 05/14/2019 Telephone [facility] Froylan Louise Ra, MD INR RESULTS [address] [phone] Social History Tobacco Use [...] containing 4 or more times a w [place] 05/25/2021 alcohol? How many drinks containing [...] you attend moravian or Patient refused 2020 yazidism services? Do [...] this encounter Miscellaneous Notes Telephone Encounter - Hilda Burch RN - 05/14/2019 2:08 PM CST ANTICOAGULATION MANAGEMENT Patient Name: Virgil Christine Date: 05/14/2019 ASSESSMENT /SUBJECTIVE: Today's INR result of 1.6 is subtherapeutic. Goal INR of 2.0-3.0 ??? Warfarin dose taken: Warfarin taken as previously instructed ??? Diet: No new diet changes affecting INR ??? Medication changes/ interactions: Prescribed Flexeril and Tylenol on 05/05 for back pain; only used the Flexeril and Tylenol for one day. Has been taking Motrin 600mg once a day for the past 5 days, which can increase bleeding risk. (Pt began taking this on his own, says Tylenol is not helping) ??? Previous INR: Therapeutic ??? S/S of bleeding or thromboembolism: No ??? New injury or illness: Yes: Back pain since 05/05/19 ??? Upcoming surgery, procedure or cardioversion: No ??? Additional findings: None PLAN: Spoke with Virgil regarding INR result and instructed: Warfarin Dosing Instructions: Change your warfarin dose to 5mg Wed; 7.5mg all other days of the week Instructed patient to follow up no later than: 2 weeks; Pt states he is unable to come back prior to05/31/19 when he already has a doctor's appt scheduled Education provided: Yes: Informed pt that taking Motrin or any kind of NSAID medication with warfarin increases bleeding risk, should try using Tylenol as recommended by . Pt verbalized understandingof the increased bleeding risk. Virgil verbalizes understanding and agrees to warfarin dosing plan. Instructed to call the Anticoagulation Clinic for any changes, questions or concerns. (#[phone]) OBJECTIVE: INR Date Value Ref Range Status 05/14/2019 1.60 (H) 0.86 - 1.14 Final Comment: This [...] less than 2. Anticoagulation Summary As of 05/14/2019 INR goal: 2.0-3.0 TTR: 68.9 % (1 y) INR used for dosin.60! (05/14/2019) Warfarin maintenance plan: 5 mg (5 mg x 1) every Wed; 7.5 mg (7.5 mg x 1) all other days Full warfarin instructions: 5 mg every Wed; 7.5 mg all other days Weekly warfarin total: 50 mg Plan last modified: Hilda Burhc RN (05/14/2019) Next INR check: 05/31/2019 Priority: High Target end date: Indications Long-term (current) use of anticoagulants [Z79.01] [Z79.01] Embolism and thrombosis (H) (Resolved) [I74.9] Anticoagulation Episode Summary INR check location: Preferred lab: Send INR reminders to: 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
--- OUTSIDE RECORDS SUMMARY | 2022-05-15 22:28 | XMS_ITS | Encounter Summary ---
:1955 Author Organization [facility] [place] Address [address] [place] [address] Care Team Providers Name Role Phone Froylan Louise MD Primary Care Provider Unavailable Froylan Louise MD Unavailable Unavailable Reason for Visit Reason Onset Date Comments INR RESULTS 04/09/2019 Encounter Details Date Type Department Care Team Description 04/09/2019 Telephone [facility] Froylan Louise Ra, MD INR RESULTS [address] [phone] Social History Tobacco Use [...] you attend hoahaoism or Patient refused 2020 oriental orthodox services? [...] Telephone Encounter - Rebecca Dalton RN - 04/09/2019 3:57 PM CDT ANTICOAGULATION MANAGEMENT Patient Name: Virgil Christine Date: 04/09/2019 ASSESSMENT /SUBJECTIVE: Today's INR result of 2.7 is therapeutic. Goal INR of 2.0-3.0 ??? Warfarin dose taken: Warfarin taken as previously instructed ??? Diet: No new diet changes affecting INR ??? Medication changes/ interactions: No new medications/supplements affecting INR ??? Previous INR: Therapeutic ??? S/S of bleeding or thromboembolism: No ??? New injury or illness: No ??? Upcoming surgery, procedure or cardioversion: No ??? Additional findings: None PLAN: Left detailed message for Virgil regarding INR result and instructed: Warfarin Dosing Instructions: Continue your current warfarin dose; 5 mg every Mon, Wed, Fri; 7.5 mg all other days Instructed patient to follow up no later than: 6 weeks Education provided: No Instructed to call the Anticoagulation Clinic for any changes, questions or concerns. (#[phone]) OBJECTIVE: INR Date Value Ref Range Status 04/09/2019 2.10 (H) 0.86 - 1.14 Final Comment: This [...] less than 2. Anticoagulation Summary As of 04/09/2019 INR goal: 2.0-3.0 TTR: 70.0 % (1.3 y) INR used for dosin.10 (04/09/2019) Warfarin maintenance plan: 5 mg (5 mg x 1) every Mon, Wed, Fri; 7.5 mg (7.5 mg x 1) all other days Full warfarin instructions: 5 mg every Mon, Wed, Fri; 7.5 mg all other days Weekly warfarin total: 45 mg No change documented: Rebecca Dalton RN Plan last modified: Yeimi Daniel RN (02/12/2018) Next INR check: 05/21/2019 Priority: INR Target end date: Indications Long-term (current) use of anticoagulants [Z79.01] [Z79.01] Embolism and thrombosis (H) (Resolved) [I74.9] Anticoagulation Episode Summary INR check location: Preferred lab: Send INR reminders to: [facility] Comments: documented in this encounter Plan of Treatment Upcoming Encounters Date Type Specialty Care Team Description 05/20/2022 Lab Lab documented as of this encounter Visit Diagnoses Diagnosis correction current use of anticoagulant t herapy documented in this encounter Care Teams Patient Representative Relationship Specialty Start Date End Date Froylan Louise MD PCP - General Family Practice 02/22/14 Froylan Louise MD Assigned PCP 03/13/14 2 documented as of this encounter
--- OUTSIDE RECORDS SUMMARY | 2022-05-15 22:28 | XMS_ITS | Encounter Summary ---
:1955 Author Organization [facility] Address [facility] [place] [address] Care Team Providers Name Role Phone Froylan Louise MD Primary Care Provider Unavailable Froylan Louise MD Unavailable Unavailable Reason for Visit Reason Comments Urgent Care Musculoskeletal Problem Possible pinch nerve pain fl are- Rt mid back x4 days. Hurts when turning on the Rt side Encounter Details Date Type Department Care Team Description 05/05/2019 Office Visit [facility] Radha Ledbetter Back musc le spasm Urgent Care Valentina Bonds PA-C (Primary Dx) [id number] [place] [id number] Social History Tobacco Use Types Packs/Day Years [...] you attend buddhism or Patient refused 2020 denominational services? Do [...] on file documented as of this encounter Last Filed Vital Signs Vital Sign Reading Time Taken Comments Blood Pressure 130/80 05/05/2019 2:47 PM REPTILE FARMER Pulse 68 05/05/2019 2:47 PM REPTILE FARMER Temperature 36.5 ??C (97.7 ??F) 05/05/2019 2:47 PM REPTILE FARMER Respiratory Rate - - Oxygen Saturation 97% 05/05/2019 2:47 PM REPTILE FARMER Inhaled Oxygen Concentration - - Weight - - Height - - Body Mass Index - - documented in this encounter Patient Instructions Patient InstructionsRadha Ledbetter PA-C - 05/05/2019 2:10 PM REPTILE FARMER Tomorrow take medication x 3 times. Alternate heat and ice. Tylenol as needed for pain ILE FARMER documented in this encounter Progress Notes Radha Ledbetter PA-C - 05/05/2019 2:10 PM CST SUBJECTIVE: Virgil Christine is a 63 year old male presenting with a chief complaint of Chief Complaint Patient presents with ??? Urgent Care ??? Musculoskeletal Problem Possible pinch nerve pain flare- Rt mid back x4 days. Hurts when turning on the Rt side He is an established patient of [facility]. Back Pain Onset of symptoms was 4 day(s) ago. Location: right middle of back. Pain comes and goes. Sharp stabbing pain. Radiation: does not radiate Context: Does not recall any specific injury. 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 The pain started at work. Patient experienced immediate pain Course of symptoms is worsening. Severity moderate Current and Associated symptoms: pain Denies: fecal incontinence, urinary incontinence, lower extremity numbness, lower extremity weaknessand paresthesia Aggravating Factors: lateral bending to the right side Therapies to improve symptoms include: Karon. Has seen his chiropractor this morning who recommendeda prescription for a muscle relaxer. Past history: recurrent self limited episodes of low back pain in the past. Has a history of inflammatory arthritis. Has yet to set up appointment with rheumatology. Review of Systems Gastrointestinal: Negative for diarrhea, nausea and vomiting. Musculoskeletal: Positive for back pain. Negative for neck pain. Neurological: Negative for weakness and numbness. Past Medical History: Diagnosis Date ??? Antiplatelet [...] Unspecified hemorrhoids without mention of complication Hemorrhoids Family History Problem Relation Age of Onset ??? Diabetes Mother ??? Colon Cancer No family hx of Current Outpatient Medications Medication Sig Dispense Refill ??? Acetaminophen (TYLENOL 8 HOUR PO) Take 1,000 mg by mouth as needed ??? albuterol (PROAIR HFA/PROVENTIL HFA/VENTOLIN HFA) 108 (90 Base) MCG/ACT inhaler Inhale 2 puffs into the lungs every 6 hours as needed for shortness of breath / dyspnea or wheezing 3 Inhaler 3 ??? cyclobenzaprine (FLEXERIL) 10 MG tablet Take 1 tablet (10 mg) by mouth At Bedtime 20 tablet 0 ??? multivitamin w/minerals (MULTI-VITAMIN) tablet Take 1 tablet by mouth daily ??? sildenafil (VIAGRA) 50 MG tablet Take 0.5-1 tablets (25-50 mg) by mouth daily as needed 6 tablet3 ??? SYMBICORT 160-4.5 MCG/ACT Inhaler TAKE 2 PUFFS BY MOUTH TWICE A DAY 30.6 Inhaler 0 ??? terazosin (HYTRIN) 2 MG capsule Take 1 capsule (2 mg) by mouth At Bedtime 90 capsule 1 ??? triamcinolone (KENALOG) 0.1 % external cream APPLY TOPICALLY TWICE DAILY 30 g 0 ? ? warfarin (COUMADIN) 5 MG tablet TAKE 5 MG (1 TABLET) ON MON, WED, & FRI. TAKE 7.5 MG TABLET ON ALL OTHER DAYS 39 tablet 1 ??? warfarin ANTICOAGULANT (COUMADIN) 7.5 MG tablet TAKE 5MG TABLET DAILY ON MON,WED,FRI. AND 7.5MG TABLET ON ALL OTHER DAYS OF THE WEEK. 52 tablet 1 ??? zolpidem ER (AMBIEN CR) 12.5 MG CR tablet TAKE 1 TABLET BY MOUTH NIGHTLY NEEDED FOR SLEEP. 30tablet 0 ??? loperamide (IMODIUM) 2 MG capsule TAKE 3-4 CAPSULES (6-8 MG) BY MOUTH 3 TIMES DAILY NEEDED FOR DIARRHEA (Patient not taking: Reported on 05/05/2019) 480 capsule 1 ??? predniSONE (DELTASONE) 20 MG tablet Take 2 tabs daily for 7 days then decrease to 1 tab daily for 7 days, then 1/2 daily (Patient not taking: Reported on 05/05/2019) 30 tablet 0 Social History Tobacco Use ??? Smoking status: Former Smoker Packs/day: 2.00 Years: 25.00 Pack years: 50.00 Types: Cigarettes Last attempt to quit: 08/04/2006 Years since quittin.7 ??? Smokeless tobacco: Never Used ??? Tobacco comment: 2004 Substance Use Topics ??? Alcohol use: Yes Comment: 4 BEERS A WEEK OBJECTIVE BP 130/80 (BP Location: Right arm, Patient Position: Chair, Cuff Size: Adult Large) Pulse 68 Temp 97.7 ??F (36.5 ??C) (Oral) SpO2 97% Physical Exam Vitals signs and nursing note reviewed. Constitutional: General: He is not in acute distress. Appearance: He is well-developed. HENT: Head: Normocephalic and atraumatic. Right Ear: External ear normal. Left Ear: External ear normal. Eyes: Conjunctiva/sclera: Conjunctivae normal. Neck: Musculoskeletal: Normal range of motion. Cardiovascular: Rate and Rhythm: Regular rhythm. Heart sounds: Normal heart sounds. Pulmonary: Effort: Pulmonary effort is normal. No respiratory distress. Breath sounds: Normal breath sounds. Musculoskeletal: Normal range of motion. General: Tenderness present. Comments: Back Exam: No gross deformities, swelling or ecchymosis noted. Tenderness to palpation right mid back latissimus dorsi muscles. Muscle spasm noted. Negative SLR. Skin: General: Skin is warm and dry. Neurological: Mental Status: He is alert. Labs: No results found for this or any previous visit (from the past 24 hour(s)). ASSESSMENT: ICD-10-CM 1. Back muscle spasm M62.830 cyclobenzaprine (FLEXERIL) 10 MG tablet PLAN: Back muscle spasm: Flexeril is prescribed today. Recommended alternating heat and ice. Work excuse note is given for tomorrow. Rest. Tylenol as needed for pain. Patient is on Coumadin so cannot take NSAIDs. Follow-up if any worsening symptoms. He agrees with the plan. Followup: If not improving or if condition worsens, follow up with your Primary Care Provider Patient Instructions Tomorrow take medication x 3 times. Alternate heat and ice. Tylenol as needed for pain ILE FARMER documented in this encounter Plan of Treatment Upcoming Encounters Date Type Specialty Care Team Description 05/20/2022 Lab Lab documented as of this encounter Visit Diagnoses Diagnosis Back muscle spasm - Primary Other symptoms referable to back documented in this encounter Care Teams Carton Folder Relationship Specialty Start Date End Date Froylan Louise MD PCP - General Family Practice 02/22/14 Froylan Louise MD Assigned PCP 03/13/14 2 documented as of this encounter
--- OUTSIDE RECORDS SUMMARY | 2022-05-15 22:28 | XMS_ITS | Encounter Summary ---
:1955 Author Organization [facility] Address [address] [place] [id number] Care Team Providers Name Role Phone Froylan Louise MD Primary Care Provider Unavailable Froylan Louise MD Unavailable Unavailable Encounter Details Date Type Department Care Team Description 05/05/2019 Travel Social History Tobacco Use Types Packs/Day [...] you attend jainism or Patient refused 2020 rastafari services? Do [...] filedocumented in this encounter Care Teams Director Fixed Income Relationship Specialty Start Date End Date Froylan Louise MD PCP - General Family Practice 02/22/14 Froylan Louise MD Assigned PCP 03/13/14 2 documented as of this encounter
--- OUTSIDE RECORDS SUMMARY | 2022-05-15 22:28 | XMS_ITS | Encounter Summary ---
:1955 Author Organization [facility] Address [address] [place] [address] Care Team Providers Name Role Phone Froylan Louise MD Primary Care Provider Unavailable Froylan Louise MD Unavailable Unavailable Reason for Visit Reason Comments Fatigue 1 month Edema entire body x 1 month Encounter Details Date Type Department Care Team Description 01/09/[address] [facility] [place] (Primary Dx) [address] [place] [address] Social History Tobacco Use Types [...] containing 4 or more times a w [place] 05/25/2021 alcohol? How many drinks containing alcohol [...] you attend gnosticist or Patient refused 2020 islam services? Do [...] Sign Reading Time Taken Comments Blood Pressure 134/78 01/09/2019 11:49 AM CDT Pulse 91 01/09/2019 11:49 AM CDT Temperature 37 ??C (98.6 ??F) 01/09/2019 11:49 AM CDT Respiratory Rate - - Oxygen Saturation 97% 01/09/2019 11:49 AM CDT Inhaled Oxygen Concentration - - Weight - - Height - - Body Mass Index - - documented in this encounter Progress Notes Froylan Louise MD - 01/09/2019 11:40 AM CDT SUBJECTIVE: Virgil Christine is a 63 year old male who presents to clinic today for the following health issues: Patient presents with: Fatigue: 1 month Edema: entire body x 1 month Patient here with significant swelling in bilateral hands. Has had some swelling in the past but this is significantly worse over the past few weeks to month. Has swelling and MCP joints bilaterally right hand worse than left as well as in the wrists right hand prominent. Swelling with erythema and stiffness. Stiffness lasts in the morning for about 1 hour prior to being able to warm up his hands anduse them well enough to work. Has some other koint pain in bilateral knees, bilateral hips and states he feels achy all over. He feels that he has fatigue as well. Denies chest pain or shortness of breath. Denies family history of rheumatoid arthritis or other inflammatory condition. Patient has history of ulcerative colitis but is status post colectomy and bowel issues are stable. Patient Active Problem List Diagnosis ??? Anticardiolipin antibody positive ??? Mild persistent asthma ??? Health Skilled Nursing ? ? Hyperlipidemia LDL goal <160 ??? Personal history of DVT (deep vein [...] ulcer of ankle and inflammation (CODE) (H) Past Surgical History: Procedure Laterality Date ??? [...] Location: [facility] OR ??? RESECTION ABDOMINAL PERINEAL Social History Tobacco Use ??? Smoking status: Former Smoker Packs/day: 2.00 Years: 25.00 Pack years: 50.00 Types: Cigarettes Last attempt to quit: 08/04/2006 Years since quittin.4 ??? Smokeless tobacco: Never Used ??? Tobacco comment: 2005 Substance Use Topics ??? Alcohol use: Yes Comment: 4 BEERS A WEEK Family History Problem Relation Age of Onset ??? Diabetes Mother ??? Colon Cancer No family hx of ROS: CONSTITUTIONAL: no fever INTEGUMENTARY/SKIN: no rash MUSCULOSKELETAL: Significant arthralgias as noted above as well as diffuse myalgia OBJECTIVE: BP 134/78 (BP Location: Right arm, Patient Position: Sitting, Cuff Size: Adult Large) Pulse 91 Temp 98.6 ??F (37 ??C) (Oral) SpO2 97% There is no height or weight on file to calculate BMI. GENERAL APPEARANCE: alert and no distress MS: Right hand MCP joints with moderate effusion and erythema across MCPs, mild effusion and mild erythema at wrist, reduced range of motion through hand for squeezing, normal strength, DIP and PIP joints appear normal, elbow and shoulder are normal range of motion without tenderness. Left side mild swelling of MCPs and wrist with mild erythema. Otherwise normal exam of elbow, shoulder. Knee and hipswith normal range of motion. SKIN: no suspicious lesions or rashes ASSESSMENT/PLAN: 1. Inflammatory arthritis Patient with significant swelling consistent with inflammatory arthritis. Recommend lab tests below.I would suspect rheumatoid arthritis based on appearance. Arthritis associated with inflammatory bowel disease should not come on at this level without bowel issues and he is status post colectomy. No other findings for other inflammatory or vasculitis cause at this time. Discussed possibility of postinfectious arthritis and will check a few tests below. Recommend trial of prednisone as below with tapering. If this helps and has positive rheumatoid factor we will begin treatment with for rheumatoid arthritis and get rheumatology follow-up. - Rheumatoid factor - Cyclic Citrullinated Peptide Antibody IgG - CBC with platelets differential - Lyme Disease Kandice with reflex to WB Serum - Comprehensive metabolic panel - CRP inflammation - Erythrocyte sedimentation rate auto - predniSONE (DELTASONE) 20 MG tablet; Take 2 tabs daily for 7 days then decrease to 1 tab daily for7 days, then 1/2 daily Dispense: 30 tablet; Refill: 0 - Antistreptolysin O - Hepatitis C Screen Reflex to HCV RNA Quant and Genotype Froylan Louise MD [facility] documented in this encounter Plan of Treatment Upcoming Encounters Date Type Specialty Care Team Description 05/20/2022 Lab Lab documented as of this encounter Procedures Procedure Name Priority Date/Time Associated Comments Diagnosis HEPATITIS C SCREEN Routine 01/09/2019 12:32 Inflammatory Resul ts for this REFLEX TO HCV RNA QUANT PM CDT arthritis proc edure are in AND GENOTYPE the results section. CYCLIC CITRULLINATED Routine 01/09/2019 12:32 Inflammatory Res ults for this PEPTIDE ANTIBODY IGG PM CDT arthritis procedu re are in the results section. LYME DISEASE TOTAL ABS Routine 01/09/2019 12:32 Inflammatory R esults for this BLD WITH REFLEX TO PM CDT arthritis procedure are in [facility]M [facility] the results section. CBC WITH PLATELETS & Routine 01/09/2019 12:32 Inflammatory Res ults for this DIFFERENTIAL PM CDT arthritis procedure are i n the results section. RHEUMATOID FACTOR Routine 01/09/2019 12:32 Inflammatory Result s for this PM CDT arthritis procedure are i n the results section. ERYTHROCYTE Routine 01/09/2019 12:32 Inflammatory Results for this SEDIMENTATION RATE AUTO PM CDT arthritis proc edure are in the results section. CRP INFLAMMATION Routine 01/09/2019 12:32 Inflammatory Results for this PM CDT arthritis procedure are i n the results section. COMPREHENSIVE METABOLIC Routine 01/09/2019 12:32 Inflammatory Results for this PANEL PM CDT arthritis procedure are i n the results section. ANTISTREPTOLYSIN O Routine 01/09/2019 12:32 Inflammatory Resul ts for this PM CDT arthritis procedure are i n the results section. ASTHMA ACTION PLAN Routine 01/09/2019 11:39 AM CDT documented in this encounter Results Hepatitis C Screen Reflex to HCV RNA Quant and Genotype (01/09/2019 12:32 PM CDT) [facility] Method Time Signature Hepatitis C Nonreactive NR^Nonrea 01/11/2019 [facility] Antibody ctive 4:09 PM CDT [facility] Comment: Assay performance characteristics have n ot been established for newborns, infants, and children Specimen Anatomical Collection Method Collection Time Receive d Time (Source) Location / / Volume Laterality Blood specimen 01/09/2019 12:32 9 (specimen) PM CDT 12:33 PM CDT Froylan Louise MD LAB - BLOOD ORDERABLES Performing Organization Address City/[facility]/ZIP Code Phon e Number [address] Antistreptolysin O (01/09/2019 12:32 PM CDT) [facility] iCreate Method Time Signature Antistreptolysin O 39 0 - 120 01/11/2019 [facility] IU/mL 4:11 PM CDT [facility] Comment: A single ASO analysis may not be meaning ful due to the variability of ASO values within the normal population. ??B oth clinical and laboratory findings should be considered in reaching a diagn osis. ??A single analysis may be less informative than a repeat analysis showi ng a change. Specimen Anatomical Collection Method Collection Time Receive d Time (Source) Location / / Volume Laterality Blood specimen 01/09/2019 12:32 9 (specimen) PM CDT 12:33 PM CDT Froylan Louise MD LAB - BLOOD ORDERABLES Performing Organization Address City/[facility]/ZIP Code Phon e Number [facility] [address] (ABNORMAL) Erythrocyte sedimentation rate auto (01/09/2019 12:32 PM CDT) P athologist Signature Sed Rate 27 (H) 0 - 20 mm/h 01/09/2019 [place] 12:44 PM CDT [facility] Specimen Anatomical Collection Method Collection Time Receive d Time (Source) Location / / Volume Laterality Blood specimen 01/09/2019 12:32 9 (specimen) PM CDT 12:33 PM CDT Froylan Louise MD LAB - BLOOD ORDERABLES Performing Organization Address City/[facility]/ZIP Code Phon e Number [facility] [address] [place] [address] (ABNORMAL) CRP inflammation (01/09/2019 12:32 PM CDT) [facility] Method Time Signature CRP Inflammation 47.0 (H) 0.0 - 8.0 01/11/2019 [facility] F mg/L 2:12 PM CDT [facility] Specimen Anatomical Collection Method Collection Time Receive d Time (Source) Location / / Volume Laterality Blood specimen 01/09/2019 12:32 9 (specimen) PM CDT 12:33 PM CDT Froylan Louise MD LAB - BLOOD ORDERABLES Performing Organization Address City/[facility]/ZIP Code Phon e Number [facility] [address] [place], [place] [phone] [place] [address] (ABNORMAL) Comprehensive metabolic panel (01/09/2019 12:32 PM CDT) [facility] Method Time Signature Sodium 143 133 - 144 01/11/[facility] mmol/L 12:56 PM CDT [facility] Potassium 4.1 3.4 - 5.3 01/11/2019 [facility] mmol/L 12:56 PM CDT [facility] Chloride 110 (H) 94 - 109 01/11/2019 [facility] mmol/L 12:56 PM CDT [facility] Carbon Dioxide 27 20 - 32 01/11/2019 [facility] mmol/L 1:01 PM CDT [facility] Anion Gap 6 3 - 14 01/11/2019 [facility] mmol/L 1:01 PM CDT [facility] Glucose 112 (H) 70 - 99 01/11/2019 [place] mg/dL 1:01 PM [facility] Urea Nitrogen 18 7 - 30 01/11/2019 [place] mg/dL 1:01 PM [facility] Creatinine 0.82 0.66 - 01/11/2019 [place] 1.25 mg/dL 1:01 PM [facility] GFR Estimate >90 >60 01/11/2019 [place] mL/min/{1. 1:01 PM [facility] 73_m2} [facility] Comment: Non GFR Calc Starting 06/09/2018, serum creatinine ba sed estimated GFR (eGFR) will be calculated using the Chronic Kidney Dise [facility] Epidemiology Collaboration (CKD-EPI) equation. GFR Estimate If >90 >60 mL/min/{1.73_m2} 01/11/2019 1: 01 PM [facility] Comment: GFR Calc Starting 06/09/2018, serum creatinine ba sed estimated GFR (eGFR) will be calculated using the Chronic Kidney Dise [facility] Epidemiology Collaboration (CKD-EPI) equation. Calcium 8.5 8.5 - 10.1 01/11/2019 1:01 PM [place] [facility] mg/dL [facility] Bilirubin Total 0.6 0.2 - 1.3 01/11/2019 1:04 PM [facility] [place] mg/dL [facility] Albumin 3.1 (L) 3.4 - 5.0 g/dL 01/11/2019 1:[address] [facility] Protein Total 7.0 6.8 - 8.8 g/dL 01/11/2019 1:04 PM [facility] Alkaline Phosphatase 91 40 - 150 U/L 01/11/2019 1:04 PM [facility] ALT 25 0 - 70 U/L 01/11/2019 1:04 PM [facility] AST 19 0 - 45 U/L 01/11/2019 1:04 PM [facility] Specimen Anatomical Collection Method Collection Time Receive d Time (Source) Location / / Volume Laterality Blood specimen 01/09/2019 12:32 9 (specimen) PM CDT 12:33 PM CDT Froylan Louise MD LAB - BLOOD ORDERABLES Performing Organization Address City/State/ZIP Code Phon e Number [facility] [address] [phone] [facility] [address] [place], [place] [address] [facility] [address] [address], U [phone] Lyme Disease Kandice with reflex to WB Serum (01/09/2019 12:32 PM CDT) athologist Signature Lyme Disease 0.22 0.00 - 01/11/2019 [facility] 0.89 4:02 PM CDT [facility] Comment: Negative, Absence of detectable Borrelia burdorferi antibodies. A negative result does not exclude the possibility of Borrelia burgdorferi infection. If early Lyme disease is suspected, a secon d sample should be collected and tested 2 to 4 weeks later. Specimen Anatomical Collection Method Collection Time Receive d Time (Source) Location / / Volume Laterality Blood specimen 01/09/2019 12:32 9 (specimen) PM CDT 12:33 PM CDT Froylan Louise MD LAB - BLOOD ORDERABLES Performing Organization Address City/State/ZIP Code Phon e Number [facility] [address] [place] [address] [facility] (ABNORMAL) CBC with platelets differential (01/09/2019 12:32 PM CDT) athologist Signature WBC 6.7 4.0 - 11.0 01/09/2019 [place] 10e9/L 12:42 PM CDT [facility] RBC Count 4.61 4.4 - 5.9 01/09/2019 [place] 10e12/L 12:42 PM CDT [facility] Hemoglobin 13.5 13.3 - 17.7 01/09/2019 [place] g/dL 12:42 PM CDT [facility] Hematocrit 41.3 40.0 - 53.0 01/09/2019 [place] % 12:42 PM CDT [facility] MCV 90 78 - 100 fl 01/09/2019 [place] 12:42 PM CDT [facility] MCH 29.3 26.5 - 33.0 01/09/2019 [place] pg 12:42 PM CDT [facility] MCHC 32.7 31.5 - 36.5 01/09/2019 [place] g/dL 12:42 PM CDT [facility] RDW 15.1 (H) 10.0 - 15.0 01/09/2019 [facility] % 12:42 PM CDT [facility] [place] Comment: Results confirmed by repeat shanthi t Platelet Count 232 150 - 450 01/09/2019 12:42 [place] 10e9/L PM CDT [facility] % Neutrophils 80.4 % 01/09/2019 12:42 [place] PM CDT [facility] % Lymphocytes 12.0 % 01/09/2019 12:42 [place] PM CDT [facility] % Monocytes 5.8 % 01/09/2019 12:42 [place] PM CDT [facility] % Eosinophils 1.5 % 01/09/2019 12:42 [place] PM CDT [facility] % Basophils 0.3 % 01/09/2019 12:42 [place] PM CDT [facility] Absolute Neutrophil 5.4 1.6 - 8.3 01/09/2019 12:42 [facility] 10e9/L PM CDT [facility] [place] Absolute 0.8 0.8 - 5.3 01/09/2019 12:42 [place] Lymphocytes 10e9/L PM CDT [facility] Absolute Monocytes 0.4 0.0 - 1.3 01/09/2019 12:42 [facility] 10e9/L PM CDT [facility] [place] Absolute 0.1 0.0 - 0.7 01/09/2019 12:42 [place] Eosinophils 10e9/L PM CDT [facility] [place] Absolute Basophils 0.0 0.0 - 0.2 01/09/2019 12:42 [facility] 10e9/L PM CDT [facility] [place] Diff Method Automated Method 01/09/2019 12:42 [facility] PM CDT [facility] Specimen Anatomical Collection Method Collection Time Receive d Time (Source) Location / / Volume Laterality Blood specimen 01/09/2019 12:32 9 (specimen) PM CDT 12:33 PM CDT Froylan Louise MD LAB - BLOOD ORDERABLES Performing Organization Address City/State/ZIP Code Phon e Number [facility] [address] [place] [address] Cyclic Citrullinated Peptide Antibody IgG (01/09/2019 12:32 PM CDT) Patholo gist Method Time Signature Cyclic 1 <7 U/mL 01/12/2019 [facility] Citrullinated 12:41 PM CDT [facility] Peptide Antibody, [facility] Comment: Negative Specimen Anatomical Collection Method Collection Time Receive d Time (Source) Location / / Volume Laterality Blood specimen 01/09/2019 12:32 9 (specimen) PM CDT 12:33 PM CDT Froylan Louise MD LAB - BLOOD ORDERABLES Performing Organization Address City/State/ZIP Code Phon e Number [facility] [address] Rheumatoid factor (01/09/2019 12:32 PM CDT) P athologist Signature Rheumatoid <20 <20 IU/mL 01/11/2019 [facility] Factor 4:11 PM CDT [facility] Specimen Anatomical Collection Method Collection Time Receive d Time (Source) Location / / Volume Laterality Blood specimen 01/09/2019 12:32 9 (specimen) PM CDT 12:33 PM CDT Froylan Louise MD LAB - BLOOD ORDERABLES Performing Organization Address City/State/ZIP Code Phon e Number [facility] [address] documented in this encounter Visit Diagnoses Diagnosis Inflammatory arthritis - Primary Unspecified inflammatory polyarthropathy documented in this encounter Care Teams Rug Dyer Relationship Specialty Start Date End Date Froylan Louise MD PCP - General Family Practice 02/22/14 Froylan Louise MD Assigned PCP 03/13/14 2 documented as of this encounter
--- OUTSIDE RECORDS SUMMARY | 2022-05-15 22:28 | XMS_ITS | Encounter Summary ---
:1955 Author Organization [place] Address [facility]ly [facility] [place] [address] Care Team Providers Name Role Phone Froylan Louise MD Primary Care Provider Unavailable Froylan Louise MD Unavailable Unavailable Reason for Referral Consultation (Routine) - Closed Specialty Diagnoses / Procedures Referred By Contact Refer red To Contact Diagnoses Inflammatory arthritis Froylan Louise MD MULTIPLE LOCATIONS [address] [place] [address] Referral ID Status Reason Start Date Expiration Date Visits Requ ested Visits Authorized [id number] Closed 05/31/2019 05/30/2020 1 1 TH INSURANCE AGENT Reason for Visit Reason Comments Recheck Medication Encounter Details Date Type Department Care Team Description 05/31/2019 Office Visit [facility] Froylan Louise Inflammat ory arthritis (Primary Dx); Clinic Chhaya Dubose MD Chronic deep vein thrombosis (DVT) of lower extremity, unspecified laterality, unspecified vein (H); [id number] [facility] Anticardiolipin antibody pos itive; [place], [place] Postthrombotic syndrome; [id number] Other ulcerative colitis wit hout complication (H); [phone] Mild persistent asthma without complication; Screening for p rostate cancer; Encounter for s creening for HIV Social History Tobacco Use Types Packs/Day Years [...] you attend hoahaoism or Patient refused 2020 congregation services? Do [...] Sign Reading Time Taken Comments Blood Pressure 136/74 05/31/2019 1:06 PM HEALTH INSURANCE AGENT Pulse 60 05/31/2019 1:06 PM HEALTH INSURANCE AGENT Temperature 36.6 ??C (97.8 ??F) 05/31/2019 1:06 PM HEALTH INSURANCE AGENT Respiratory Rate 17 05/31/2019 1:06 PM HEALTH INSURANCE AGENT Oxygen Saturation 98% 05/31/2019 1:06 PM HEALTH INSURANCE AGENT Inhaled Oxygen Concentration - - Weight 108 kg (238 lb) 05/31/2019 1:06 PM HEALTH INSURANCE AGENT Height 179.1 cm (5' 10.5) 05/31/2019 1:06 PM HEALTH INSURANCE AGENT Body Mass Index 33.67 05/31/2019 1:06 PM HEALTH INSURANCE AGENT documented in this encounter Progress Notes Froylan Louise MD - 05/31/2019 1:00 PM CST Subjective Virgil Christine is a 63 year old male who presents to clinic today for the following health issues: HPI Patient with significant joint swelling consistent with inflammatory arthritis. He continues to havebilateral hand, wrist, shoulder and knee pain. Due to pain, it's difficult to move in the morning and it's difficult to get out of his car. In addition, the swelling prevents him from making a fist with his hand. The symptoms improved with a trial of prednisone this past summer. He had to cancel his rheumatology appointment, but would like to reschedule it. Patient with history of DVT in 2013 [...] 2017. He underwent mechanical andmedical thrombectomy. Patient??was??restarted on??Coumadin. History of mild persistent asthma, controlled. He is using the Symbicort inhaler; however, he would like to transition to Qvar and atrovent due to cost. Denies cough, shortness of breath. History of ulcerative colitis, status post colectomy.??He has a fistula of the pouch to the perinealskin. His colon and rectal team thought he would likely need a redo pouch. Patient with history of insomnia. He uses Ambien as needed, typically twice per week. Patient Active Problem List Diagnosis ??? Anticardiolipin antibody positive ??? Mild persistent asthma ??? [facility] ? ? Hyperlipidemia LDL goal <160 ??? [...] (H) ??? Anal fistula ??? Anal stenosis Past Surgical History: Procedure Laterality Date ??? [...] N/A 06/20/2017 Procedure: POUCHOSCOPY; POUCHOSCOPY ; Surgeon: Chsae Suazo MD; Location: [facility] ??? POUCHOSCOPY N/A 06/12/2018 Procedure: POUCHOSCOPY; Surgeon: Chase Suazo MD; Location: [facility] OR ??? RESECTION ABDOMINAL PERINEAL Social History Tobacco Use ??? Smoking status: Former Smoker Packs/day: 2.00 Years: 25.00 Pack years: 50.00 Types: Cigarettes Last attempt to quit: 08/04/2006 Years since quittin.8 ??? Smokeless tobacco: Never Used ??? Tobacco comment: 2004 Substance Use Topics ??? Alcohol use: Yes Comment: 4 BEERS A WEEK Family History Problem Relation Age of Onset ??? Diabetes Mother ??? Colon Cancer No family hx of Reviewed and updated as needed this visit by Provider Tobacco Allergies Meds Problems Med Hx Surg Hx Fam Hx Review of Systems ROS COMP: RESP: NEGATIVE for significant cough or SOB CV: NEGATIVE for chest pain, palpitations or peripheral edema GI: as noted above MUSCULOSKELETAL: as noted above HEME/ALLERGY/IMMUNE: NEGATIVE for bleeding problems PSYCHIATRIC: POSITIVE for insomnia This document serves as a record of the services and decisions personally performed and made by Froylan Louise MD. It was created on his behalf by Sofia Altman, a trained medical reimbursement manager. The creation of this document is based on the provider's statements to the medical reimbursement manager. Sofia Altman 1:15 PM May 31, 2019 Objective BP 136/74 (BP Location: Right arm, Patient Position: Chair, Cuff Size: Adult Regular) Pulse 60 Temp 97.8 ??F (36.6 ??C) (Oral) Resp 17 Ht 1.791 m (5' 10.5) Wt 108 kg (238 lb) SpO2 98% BMI 33.67 kg/m?? Body mass index is 33.67 kg/m??. Physical Exam GENERAL: healthy, alert and no distress RESP: lungs clear to auscultation - no rales, rhonchi or wheezes CV: regular rates and rhythm, normal S1 S2, no S3 or S4 and no murmur, click or rub MS: swelling of the right third and fourth MCP joints Diagnostic Test Results: Labs reviewed in [facility] Results for orders placed or performed in visit on 05/31/19 (from the past 24 hour(s)) CBC with platelets differential Result Value Ref Range WBC 8.0 4.0 - 11.0 10e9/L RBC Count 5.02 4.4 - 5.9 10e12/L Hemoglobin 14.8 13.3 - 17.7 g/dL Hematocrit 45.1 40.0 - 53.0 % MCV 90 78 - 100 fl MCH 29.5 26.5 - 33.0 pg MCHC 32.8 31.5 - 36.5 g/dL RDW 14.6 10.0 - 15.0 % Platelet Count 249 150 - 450 10e9/L % Neutrophils 75.6 % % Lymphocytes 16.6 % % Monocytes 6.1 % % Eosinophils 1.3 % % Basophils 0.4 % Absolute Neutrophil 6.1 1.6 - 8.3 10e9/L Absolute Lymphocytes 1.3 0.8 - 5.3 10e9/L Absolute Monocytes 0.5 0.0 - 1.3 10e9/L Absolute Eosinophils 0.1 0.0 - 0.7 10e9/L Absolute Basophils 0.0 0.0 - 0.2 10e9/L Diff Method Automated Method Erythrocyte sedimentation rate auto Result Value Ref Range Sed Rate 15 0 - 20 mm/h Assessment & Plan 1. Inflammatory arthritis Patient with inflammatory arthritis of the MCPs and wrists right greater than left as well as shoulder pains. This was markedly improved with prednisone. Referred to rheumatology but was unable to makefollow-up yet. For short-term relief we will have repeat trial of prednisone. Recommend follow-up with rheumatology for possible seronegative rheumatoid arthritis versus arthritis with inflammatory bowel disease versus other. - predniSONE (DELTASONE) 20 MG tablet; Take 2 tabs daily for 7 days then decrease to 1 tab daily for7 days, then 1/2 daily Dispense: 30 tablet; Refill: 0 - RHEUMATOLOGY REFERRAL - CBC with platelets differential - Erythrocyte sedimentation rate auto - CRP inflammation - TSH with free T4 reflex - Vitamin B12 - Vitamin D Deficiency 2. Chronic deep vein thrombosis (DVT) of lower extremity, unspecified laterality, unspecified vein (H) Continue Coumadin lifelong with history noted above. 3. Anticardiolipin antibody positive 4. Postthrombotic syndrome - Comprehensive metabolic panel 5. Other ulcerative colitis without complication (H) Patient with ulcerative colitis and having issue with anal fistula and anal stenosis. Recommend follow-up with colorectal. 6. Mild persistent asthma without complication Patient desires to change back to Qvar and Atrovent based on cost issues. He has been well controlled recently. 7. Screening for prostate cancer Discussed risk and benefit of prostate cancer screening with PSA testing including benefit of early detection and risk of unnecessary biopsy and patient anxiety and complications of treatment on cancerthat may not have affected patient's health. Patient desires PSA testing at this time. - Prostate spec antigen screen 8. Encounter for screening for HIV - HIV Antigen Antibody Combo BMI: Estimated body mass index is 33.67 kg/m?? as calculated from the following: Height as of this encounter: 1.791 m (5' 10.5). Weight as of this encounter: 108 kg (238 lb). Weight management plan: Discussed healthy diet and exercise guidelines Return in about 6 months (around 11/30/2019) for routine physical. The information in this document, created by the medical reimbursement manager for me, accurately reflects the services I personally performed and the decisions made by me. I have reviewed and approved this document for accuracy prior to leaving the patient care area. May 31, 2019 1:41 PM Froylan Louise MD [facility] TH INSURANCE AGENT documented in this encounter Plan of Treatment Upcoming Encounters Date Type Specialty Care Team Description 05/20/2022 Lab Lab Scheduled Referrals Name Type Priority Associated Diagnoses Order S chedule RHEUMATOLOGY REFERRAL Referral Routine Inflammatory arthri tis Ordered: 05/31/2019 documented as of this encounter Procedures Procedure Name Priority Date/Time Associated Diagnosis Comme nts HIV ANTIGEN ANTIBODY Routine 05/31/2019 1:43 Encounter for Res ults for this COMBO PM HEALTH INSURANCE AGENT screening for HIV procedure are in the results section. CBC WITH PLATELETS & Routine 05/31/2019 1:43 Inflammatory arth ritis Results for this DIFFERENTIAL PM HEALTH INSURANCE AGENT procedure are i n the results section. VITAMIN D DEFICIENCY Routine 05/31/2019 1:43 Inflammatory arth ritis Results for this SCREENING PM HEALTH INSURANCE AGENT procedure are i n the results section. TSH WITH FREE T4 Routine 05/31/2019 1:43 Inflammatory arthriti s Results for this REFLEX PM HEALTH INSURANCE AGENT procedure are i n the results section. PROSTATE SPECIFIC Routine 05/31/2019 1:43 Screening for prosta te Results for this ANTIGEN SCREEN PM HEALTH INSURANCE AGENT cancer procedure are in the results section. ERYTHROCYTE Routine 05/31/2019 1:43 Inflammatory arthritis Re sults for this SEDIMENTATION RATE PM HEALTH INSURANCE AGENT procedure are in AUTO the results section. CRP INFLAMMATION Routine 05/31/2019 1:43 Inflammatory arthriti s Results for this PM HEALTH INSURANCE AGENT procedure are i n the results section. COMPREHENSIVE Routine 05/31/2019 1:43 Postthrombotic Results f or this METABOLIC PANEL PM HEALTH INSURANCE AGENT syndrome procedure ar e in the results section. VITAMIN B12 Routine 05/31/2019 1:43 Inflammatory arthritis Re sults for this PM HEALTH INSURANCE AGENT procedure are i n the results section. documented in this encounter Results HIV Antigen Antibody Combo (05/31/2019 1:43 PM HEALTH INSURANCE AGENT) Patholo gist Method Time Signature HIV Antigen Nonreactive NR^Nonrea 06/01/2019 [facility] Antibody ctive 10:57 AM [facility] MEDICAL Combo [facility] Comment: HIV-1 p24 Ag & HIV-1/HIV-2 Ab N ot Detected Specimen Anatomical Collection Method Collection Time Receive d Time (Source) Location / / Volume Laterality Blood specimen 05/31/2019 1:43 PM 019 1:44 (specimen) HEALTH INSURANCE AGENT PM HEALTH INSURANCE AGENT Froylan Louise MD LAB - BLOOD ORDERABLES Performing Organization Address City/State/ZIP Code Phon e Number [facility] [address] [place], [place] [id number] [place] [address] Vitamin D Deficiency (05/31/2019 1:43 PM HEALTH INSURANCE AGENT) P athologist Signature Vitamin D 35 20 - 75 06/01/2019 [facility] Deficiency ug/L 10:57 AM [facility] MEDICAL screening [facility] Comment: Season, race, dietary intake, and treatm ent affect the concentration of 75-xzrbsci-Qkfmwov D. Values may decreas e during winter months and increase during summer months. Values 20-29 ug/L may indicate Vitamin D insufficiency and values <20 ug/L may indicate Vitamin D deficiency. Vitamin D determination is routinely per formed by an immunoassay specific for 25 hydroxyvitamin D3. ??If an individual is on vitamin D2 (ergocalciferol) supplementation, please specify 25 OH vi tamin D2 and D3 level determination by LCMSMS test VITD23. Specimen Anatomical Collection Method Collection Time Receive d Time (Source) Location / / Volume Laterality Blood specimen 05/31/2019 1:43 PM 019 1:44 (specimen) HEALTH INSURANCE AGENT PM HEALTH INSURANCE AGENT Froylan Louise MD LAB - BLOOD ORDERABLES Performing Organization Address City/[facility]/ZIP Code Phon e Number [facility] [address] [place], [place] [id number] [place] [address] Vitamin B12 (05/31/2019 1:43 PM HEALTH INSURANCE AGENT) athologist Signature Vitamin B12 368 193 - 986 05/31/2019 [facility] pg/mL 10:40 PM HEALTH INSURANCE AGENT [facility] Specimen Anatomical Collection Method Collection Time Receive d Time (Source) Location / / Volume Laterality Blood specimen 05/31/2019 1:43 PM 019 1:44 (specimen) HEALTH INSURANCE AGENT PM HEALTH INSURANCE AGENT Froylan Louise MD LAB - BLOOD ORDERABLES Performing Organization Address City/[facility]/ZIP Code Phon e Number [facility] [address] [place] [address] [facility] TSH with free T4 reflex (05/31/2019 1:43 PM HEALTH INSURANCE AGENT) athologist Signature TSH 2.21 0.40 - 4.00 06/01/2019 [facility] mU/L 10:50 AM [facility] Specimen Anatomical Collection Method Collection Time Receive d Time (Source) Location / / Volume Laterality Blood specimen 05/31/2019 1:43 PM 019 1:44 (specimen) HEALTH INSURANCE AGENT PM HEALTH INSURANCE AGENT Froyaln Louise MD LAB - BLOOD ORDERABLES Performing Organization Address City/[facility]/ZIP Code Phon e Number [facility] [address] [place] [address] Comprehensive metabolic panel (05/31/2019 1:43 PM HEALTH INSURANCE AGENT) athologist Signature Sodium 139 133 - 144 06/01/2019 [facility] mmol/L 10:18 AM [facility] Potassium 4.0 3.4 - 5.3 06/01/2019 [facility] mmol/L 10:18 AM [facility] Chloride 106 94 - 109 06/01/2019 [facility] mmol/L 10:18 AM [facility] Carbon Dioxide 25 20 - 32 06/01/2019 [facility] mmol/L 10:36 AM [facility] Anion Gap 8 3 - 14 06/01/2019 [facility] mmol/L 10:36 AM [facility] Glucose 96 70 - 99 06/01/2019 [facility] mg/dL 10:36 AM [facility] Urea Nitrogen 15 7 - 30 06/01/2019 [facility] mg/dL 10:36 AM [facility] Creatinine 0.81 0.66 - 06/01/2019 [facility] 1.25 mg/dL 10:36 AM [facility] GFR Estimate >90 >60 06/01/2019 [facility] mL/min/{1. 10:36 AM [facility] 73_m2} [facility] Comment: Non GFR Calc Starting 06/09/2018, serum creatinine ba sed estimated GFR (eGFR) will be calculated using the Chronic Kidney Dise [facility] Epidemiology Collaboration (CKD-EPI) equation. GFR Estimate If >90 >60 mL/min/{1.73_m2} 06/01/2019 10 :36 AM [facility] Black [facility] Comment: GFR Calc Starting 06/09/2018, serum creatinine ba sed estimated GFR (eGFR) will be calculated using the Chronic Kidney Dise [facility] Epidemiology Collaboration (CKD-EPI) equation. Calcium 9.0 8.5 - 10.1 06/01/2019 10:36 AM [facility] mg/dL [facility] Bilirubin Total 0.7 0.2 - 1.3 mg/dL 06/01/2019 10:42 A [facility] Albumin 3.5 3.4 - 5.0 g/dL 06/01/2019 10:42 AM [facility] Protein Total 7.4 6.8 - 8.8 g/dL 06/01/2019 10:42 AM [facility] Alkaline Phosphatase 95 40 - 150 U/L 06/01/2019 10:42 AM [facility] ALT 32 0 - 70 U/L 06/01/2019 10:42 AM [facility] AST 21 0 - 45 U/L 06/01/2019 10:42 AM [facility] Specimen Anatomical Collection Method Collection Time Receive d Time (Source) Location / / Volume Laterality Blood specimen 05/31/2019 1:43 PM 019 1:44 (specimen) HEALTH INSURANCE AGENT PM HEALTH INSURANCE AGENT Froylan Louise MD LAB - BLOOD ORDERABLES Performing Organization Address City/State/ZIP Code Phon e Number [facility] [address] [place] [address] Prostate spec antigen screen (05/31/2019 1:43 PM HEALTH INSURANCE AGENT) athologist Signature PSA 0.28 0 - 4 ug/L 06/01/2019 [facility] 10:42 AM [place] Comment: Assay Method: Chemiluminescence using Provident Linkta analyzer Specimen Anatomical Collection Method Collection Time Receive d Time (Source) Location / / Volume Laterality Blood specimen 05/31/2019 1:43 PM 019 1:44 (specimen) HEALTH INSURANCE AGENT PM HEALTH INSURANCE AGENT Froylan Louise MD LAB - BLOOD ORDERABLES Performing Organization Address City/State/ZIP Code Phon e Number [facility] [address] [place] [address] [facility] [address] [place] [address], [facility] [phone] (ABNORMAL) CRP inflammation (05/31/2019 1:43 PM HEALTH INSURANCE AGENT) [facility] gist Method Time Signature CRP Inflammation 21.0 (H) 0.0 - 8.0 05/31/2019 [facility] F mg/L 6:56 PM [facility] Specimen Anatomical Collection Method Collection Time Receive d Time (Source) Location / / Volume Laterality Blood specimen 05/31/2019 1:43 PM 019 1:44 (specimen) HEALTH INSURANCE AGENT PM HEALTH INSURANCE AGENT Froylan Louise MD LAB - BLOOD ORDERABLES Performing Organization Address City/State/ZIP Code Phon e Number [facility] [address] [place] [address] [facility] Erythrocyte sedimentation rate auto (05/31/2019 1:43 PM HEALTH INSURANCE AGENT) P athologist Signature Sed Rate 15 0 - 20 mm/h 05/31/2019 [facility] 2:53 PM [facility] Specimen Anatomical Collection Method Collection Time Receive d Time (Source) Location / / Volume Laterality Blood specimen 05/31/2019 1:43 PM 019 1:44 (specimen) HEALTH INSURANCE AGENT PM HEALTH INSURANCE AGENT Frolyan Louise MD LAB - BLOOD ORDERABLES Performing Organization Address City/State/ZIP Code Phon e Number [facility] [id number] [place] [address] CBC with platelets differential (05/31/2019 1:43 PM HEALTH INSURANCE AGENT) [facility] Method Time Signature WBC 8.0 4.0 - 05/31/2019 [facility] 11.0 2:53 PM HEALTH INSURANCE AGENT CLINICS 10e9/L [facility] RBC Count 5.02 4.4 - 5.9 05/31/2019 [facility] 10e12/L 2:53 PM HEALTH INSURANCE AGENT [facility] Hemoglobin 14.8 13.3 - 05/31/2019 [facility] 17.7 g/dL 2:53 PM HEALTH INSURANCE AGENT [facility] Hematocrit 45.1 40.0 - 05/31/2019 [facility] 53.0 % 2:53 PM HEALTH INSURANCE AGENT [facility] MCV 90 78 - 100 05/31/2019 [facility] fl 2:53 PM HEALTH INSURANCE AGENT [facility] MCH 29.5 26.5 - 05/31/2019 [facility] 33.0 pg 2:53 PM HEALTH INSURANCE AGENT [facility] MCHC 32.8 31.5 - 05/31/2019 [facility] 36.5 g/dL 2:53 PM HEALTH INSURANCE AGENT [facility] RDW 14.6 10.0 - 05/31/2019 [facility] 15.0 % 2:53 PM HEALTH INSURANCE AGENT [facility] Platelet Count 249 150 - 450 05/31/2019 [facility] 10e9/L 2:53 PM HEALTH INSURANCE AGENT [facility] % Neutrophils 75.6 % 05/31/2019 [facility] 2:53 PM HEALTH INSURANCE AGENT [facility] % Lymphocytes 16.6 % 05/31/2019 [facility] 2:53 PM HEALTH INSURANCE AGENT [facility] % Monocytes 6.1 % 05/31/2019 [facility] 2:53 PM HEALTH INSURANCE AGENT [facility] % Eosinophils 1.3 % 05/31/2019 [facility] 2:53 PM HEALTH INSURANCE AGENT [facility] % Basophils 0.4 % 05/31/2019 [facility] 2:53 PM HEALTH INSURANCE AGENT [facility] Absolute 6.1 1.6 - 8.3 05/31/2019 [facility] Neutrophil 10e9/L 2:53 PM HEALTH INSURANCE AGENT [facility] Absolute 1.3 0.8 - 5.3 05/31/2019 [facility] Lymphocytes 10e9/L 2:53 PM [facility] Absolute 0.5 0.0 - 1.3 05/31/2019 [facility] Monocytes 10e9/L 2:53 PM [facility] Absolute 0.1 0.0 - 0.7 05/31/2019 [facility] Eosinophils 10e9/L 2:53 PM [facility] Absolute 0.0 0.0 - 0.2 05/31/2019 [facility] Basophils 10e9/L 2:53 PM [facility] Diff Method Automated 05/31/2019 [facility] Method 2:53 PM [facility] Specimen Anatomical Collection Method Collection Time Receive d Time (Source) Location / / Volume Laterality Blood specimen 05/31/2019 1:43 PM 019 1:44 (specimen) HEALTH INSURANCE AGENT PM HEALTH INSURANCE AGENT Froylan Louise MD LAB - BLOOD ORDERABLES Performing Organization Address City/State/ZIP Code Phon e Number [facility] [id number] 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
--- OUTSIDE RECORDS SUMMARY | 2022-05-15 22:28 | XMS_ITS | Encounter Summary ---
:1955 Author Organization [facility] Address [address] [place] [address] Care Team Providers Name Role Phone Froylan Louise MD Primary Care Provider Unavailable Froylan Louise MD Unavailable Unavailable Reason for Visit Reason Onset Date Comments Refill Request 01/21/2019 SYMBICORT 160-4.5 G/ACT Inhaler Encounter Details Date Type Department Care Team Description 01/21/2019 [facility] Froylan Louise Ra, Refill Request Chhaya VILLASEÑOR (SYMBICORT 160-4.5 [address] [facility] MCG/ACT Inhaler) [place] [address] Social History Tobacco Use [...] containing 4 or more times a w [place] 05/25/2021 alcohol? How many drinks containing alcohol [...] you attend taoism or Patient refused 2020 jewish services? Do [...] Encounter - Esthela Corea RN - 01/21/2019 10:16 AM CDT Prescription approved per [facility] Refill Protocol. Esthela Corea, RN Telephone Encounter - Carlos Alberto Black - 01/21/2019 6:32 AM CDT Requested Prescriptions Pending Prescriptions Disp Refills ??? SYMBICORT 160-4.5 MCG/ACT Inhaler [Pharmacy Med Name: SYMBICORT 160-4.5 MCG INHALER] 30.6 Inhaler 0 Sig: TAKE 2 PUFFS BY MOUTH TWICE A DAY Last Written Prescription Date: 09/30/2018 Last Fill Quantity: 1 inhaler, # refills: 0 Last office visit: 01/09/2019 with prescribing provider: 01/09/2019 Future Office Visit: Inhaled Steroids Protocol Passed - 01/21/2019 1:43 AM Passed - Patient is age 12 or older Passed - Asthma control assessment score within normal limits in last 6 months Please review ACT score. Passed - Medication is active on med list Passed - Recent (6 mo) or future (30 days) visit within the authorizing provider's specialty Patient had office visit in the last 6 months or has a visit in the next 30 days with authorizing provider or within the authorizing provider's specialty. See Patient Info tab in inbasket, or Choose Columns in Meds & Orders section of the refill encounter. Carlos Alberto Black XRT documented in this encounter Plan of Treatment Upcoming Encounters Date Type Specialty Care Team Description 05/20/2022 Lab Lab documented as of this encounter Visit Diagnoses Diagnosis Mild persistent asthma without complicat ion Unspecified asthma documented in this encounter Care Teams Senior Underwriting Assistant Relationship Specialty Start Date End Date Froylan Louise MD PCP - General Family Practice 02/22/14 Froylan Louise MD Assigned PCP 03/13/14 2 documented as of this encounter
--- OUTSIDE RECORDS SUMMARY | 2022-05-15 22:28 | XMS_ITS | Encounter Summary ---
:1955 Author Organization [facility] Address [address] [place] [address] Care Team Providers Name Role Phone Froylan Louise MD Primary Care Provider Unavailable Froylan Louise MD Unavailable Unavailable Reason for Visit Reason Comments Medication Refill terazosin (HYTRIN) Encounter Details Date Type Department Care Team Description 01/25/2019 Refill [facility] Froylan Louise Ra, Medication Refill Chhaya VILLASEÑOR (terazosin (HYTRIN)) [address] [place] [address] Social History Tobacco Use [...] you attend bahai or Patient refused 2020 hindu services? Do [...] Telephone Encounter - Wendi Lindsay RN - 01/26/2019 11:51 AM CDT E-Prescribing Status: Receipt confirmed by pharmacy (10/09/2018 ??9:03 AM CDT) Pt should not need until March Written Prescription Date: 10/09/18 Last Fill Quantity: 90, # refills: 1 Last office visit: 01/09/2019 with prescribing provider: Dani Future Office Visit: Requested Prescriptions Pending Prescriptions Disp Refills ??? terazosin (HYTRIN) 2 MG capsule [Pharmacy Med Name: TERAZOSIN 2 MG CAPSULE] 90 capsule 1 Sig: TAKE 1 CAPSULE BY MOUTH AT BEDTIME Alpha Blockers Failed - 01/25/2019 8:08 PM Failed - Patient does not have [...] stream documented in this encounter Care Teams Reactor Fueling Supervisor Relationship Specialty Start Date End Date Froylan Louise MD PCP - General Family Practice 02/22/14 Froylan Louise MD Assigned PCP 03/13/14 2 documented as of this encounter
--- OUTSIDE RECORDS SUMMARY | 2022-05-15 22:28 | XMS_ITS | Encounter Summary ---
:1955 Author Organization [facility] Address [address] [place] [address] Care Team Providers Name Role Phone Froylan Louise MD Primary Care Provider Unavailable Froylan Louise MD Unavailable Unavailable Encounter Details Date Type Department Care Team Description 05/14/2019 Orders Only [facility] Wily g term current use of anticoagulants with INR goal of 2.0-3.0; [facility] DVT (deep venous thrombosis) (H) [address] [place] [address] Social History Tobacco Use [...] containing 4 or more times a w [place] 05/25/2021 alcohol? How many drinks containing alcohol [...] you attend gnosticism or Patient refused 2020 congregation services? Do [...] Date/Time Associated Diagnosis Comme nts INR Routine 05/14/2019 1:35 PM manager terminal current use of Results for this SENIOR CONTRACTS MANAGER anticoagulants with INR proc edure are in goal of 2.0-3.0 the results DVT (deep venous section. thrombosis) (H) documented in this encounter Results (ABNORMAL) INR (05/14/2019 1:35 PM SENIOR CONTRACTS MANAGER) athologist Signature INR 1.60 (H) 0.86 - 1.14 05/14/2019 [place] 1:51 PM [facility] Comment: This test is intended for monitoring Cou madin therapy. ??Results are not accurate in patients with prolonged INR due to factor deficiency. Specimen Anatomical Collection Method Collection Time Receive d Time (Source) Location / / Volume Laterality Blood specimen 05/14/2019 1:35 PM 019 1:41 (specimen) SENIOR CONTRACTS MANAGER PM SENIOR CONTRACTS MANAGER Froylan Louise MD LAB - BLOOD ORDERABLES Performing Organization Address City/State/ZIP Code Phon e Number [facility] [id number] [place] [address] documented in this encounter Visit Diagnoses Diagnosis manager terminal current use of anticoagulants with INR goal of 2.0-3.0 DVT (deep venous thrombosis) (H) Acute venous embolism and thrombosis of unspecified deep vessels of lower extremity documented in this encounter Care Teams Drawer Fitter Relationship Specialty Start Date End Date Froylan Louise MD PCP - General Family Practice 02/22/14 Froylan Louise MD Assigned PCP 03/13/14 2 documented as of this encounter
--- OUTSIDE RECORDS SUMMARY | 2022-05-15 22:28 | XMS_ITS | Encounter Summary ---
:1955 Author Organization [facility] Address [address] [place] [address] Care Team Providers Name Role Phone Froylan Louise MD Primary Care Provider Unavailable Froylan Louise MD Unavailable Unavailable Encounter Details Date Type Department Care Team Description 01/15/2019 Anticoagulation Therapy [facility] jail current use Visit Clinic [facility] [id number] [place] [phone] Social History Tobacco Use Types Packs/Day [...] you attend buddhist or Patient refused 2020 denominational services? Do [...] as of this encounter Patient Instructions Patient InstructionsWendi Lindsay RN - 01/15/2019 3:45 PM CDT Prednisone 40 mg for 7 days 20 mg for 7 day 10 mg then until done with bottle documented in this encounter Progress Notes Wendi Lindsay RN - 01/15/2019 3:45 PM CDT ANTICOAGULATION FOLLOW-UP CLINIC VISIT Patient Name: Virgil Christine Date: 01/15/2019 Contact Type: Face to Face SUBJECTIVE: Patient Findings Positives: Change in medications Comments: Pt is on a prednisone taper. Pt was informed of his lab results and recommended to followup with rheumatology but isn't sure he wants to Clinical Outcomes Comments: Pt is on a prednisone taper. Pt was informed of his lab results and recommended to followup with rheumatology but isn't sure he wants to OBJECTIVE INR Protime Date Value Ref Range Status 01/15/2019 2.2 (A) 0.86 - 1.14 Final Chromogenic Factor 10 Date Value Ref [...] INR Location Clinic Anticoagulation Summary As of 01/15/2019 INR goal: 2.0-3.0 TTR: 67.6 % (1.1 y) INR used for dosin.2 (01/15/2019) Warfarin maintenance plan: 5 mg (5 mg x 1) every Mon, Wed, Fri; 7.5 mg (7.5 mg x 1) all other days Full warfarin instructions: 5 mg every Mon, Wed, Fri; 7.5 mg all other days Weekly warfarin total: 45 mg No change documented: Wendi Lindsay RN Plan last modified: Yeimi Daniel RN (02/12/2018) Next INR check: 01/29/2019 Target end date: Indications Long-term (current) use of anticoagulants [Z79.01] [Z79.01] Embolism and thrombosis (H) (Resolved) [I74.9] Anticoagulation Episode Summary INR check location: Preferred lab: Send INR reminders to: [facility] Comments: See the Encounter Report to view Anticoagulation Flowsheet and Dosing Calendar (Go to Encounters tabin chart review, and find the Anticoagulation Therapy Visit) Wendi Lindsay, RN documented in this encounter Plan of Treatment Upcoming Encounters Date Type Specialty Care Team Description 05/20/2022 Lab Lab documented as of this encounter Procedures Procedure Name Priority Date/Time Associated Diagnosis Comme nts INR POINT OF CARE 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 documented in this encounter Results (ABNORMAL) INR point of care (01/15/2019) athologist Signature INR Point of 2.2 (A) 0.86 - [facility] 1.14 [facility] Specimen (Source) Anatomical Location Collection Method / Collectio n Time Received Time / Laterality Volume 01/15/2019 Froylan Louise MD LAB - BLOOD ORDERABLES Performing Organization Address City/State/ZIP Code Phon e Number [facility] [id number] 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
--- OUTSIDE RECORDS SUMMARY | 2022-05-15 22:28 | XMS_ITS | Encounter Summary ---
:1955 Author Organization [facility] Address [address] [place] [address] Care Team Providers Name Role Phone Froylan Louise MD Primary Care Provider Unavailable Froylan Louise MD Unavailable Unavailable Encounter Details Date Type Department Care Team Description 05/14/2019 Travel Social History Tobacco Use Types Packs/Day [...] you attend sabianist or Patient refused 2020 mu-ism services? Do [...] on filedocumented in this encounter Care Teams Shelter Monitor Relationship Specialty Start Date End Date Froylan Louise MD PCP - General Family Practice 02/22/14 Froylan Louise MD Assigned PCP 03/13/14 2 documented as of this encounter
--- OUTSIDE RECORDS SUMMARY | 2022-05-15 22:28 | XMS_ITS | Encounter Summary ---
:1955 Author Organization [facility] Address [address] [place] [address] Care Team Providers Name Role Phone Froylan Louise MD Primary Care Provider Unavailable Froylan Louise MD Unavailable Unavailable Encounter Details Date Type Department Care Team Description 01/09/2019 Travel Social History Tobacco Use Types Packs/Day Years Used Date Smoking Tobacco: Former Cigarettes 2 25 Quit : 08/04/2006 Smokeless Tobacco: Never Comments: 2005 Alcohol Use Standard Drinks/Week Comments Yes 0 (1 standard drink = 0.6 oz pure alcoho l) 4 BEERS A WEEK Alcohol Habits Answer Date Recorded How often do you have a drink containing 4 or more times a w [place] 05/25/2021 alcohol? How many drinks containing alcohol [...] you attend jainism or Patient refused 2020 holiness services? Do [...] on filedocumented in this encounter Care Teams Watch Caser Relationship Specialty Start Date End Date Froylan Louise MD PCP - General Family Practice 02/22/14 Froylan Louise MD Assigned PCP 03/13/14 2 documented as of this encounter
--- OUTSIDE RECORDS SUMMARY | 2022-05-15 22:28 | XMS_ITS | Encounter Summary ---
:1955 Author Organization [facility] Address [address] [place] [address] Care Team Providers Name Role Phone Froylan Louise MD Primary Care Provider Unavailable Froylan Louise MD Unavailable Unavailable Reason for Visit Reason Onset Date Comments Results 01/14/2019 Encounter Details Date Type Department Care Team Description 01/14/2019 Telephone [facility] Froylan Louise Ra, MD Results [address] [phone] Social History Tobacco Use [...] you attend lutheran or Patient refused 2020 temple services? Do [...] Telephone Encounter - Wendi Lindsay RN - 01/15/2019 11:53 AM CDT Will discuss with patient at his INR appt today Wendi Lindsay RN, BSN Telephone Encounter - Jessica Virgen MD - 01/15/2019 11:51 AM CDT Lab work negative for rheumatoid arthritis, but does seem to have some sort of inflammatory arthritis. If the prednisone was helpful, can consider Rheumatology consultation. [facility] Telephone Encounter - Hilda Santoyo RN - 01/14/2019 3:25 PM CDT Will send to covering providers at today. The Pt called for feedback on his 01/09/19 labs. No provider feedback yet. Hilda Santoyo RN -- [facility] documented in this encounter Plan of Treatment Upcoming Encounters Date Type Specialty Care Team Description 05/20/2022 Lab Lab documented as of this encounter Visit Diagnoses Not on filedocumented in this encounter Care Teams Success Coach Relationship Specialty Start Date End Date Froylan Louise MD PCP - General Family Practice 02/22/14 Froylan Louise MD Assigned PCP 03/13/14 2 documented as of this encounter
--- OUTSIDE RECORDS SUMMARY | 2022-05-15 22:28 | XMS_ITS | Encounter Summary ---
:1955 Author Organization [facility] Address [address] [place] [address] Care Team Providers Name Role Phone Froylan Louise MD Primary Care Provider Unavailable Froylan Louise MD Unavailable Unavailable Reason for Visit Reason Onset Date Comments Refill Request 02/09/2019 predniSONE (DELTASON E) 20 MG tablet Encounter Details Date Type Department Care Team Description 02/09/[address] [facility] Froylan Louise Ra, Refill Request Demetra Correa MD (predniSONE (DELTASONE) [id number] [facility] 20 MG tablet) [place] [phone] Social History Tobacco Use Types Packs/Day Years Used Date Smoking Tobacco: Former Cigarettes 2 25 Quit : 08/04/2006 Smokeless Tobacco: Never Comments: 2005 Alcohol Use Standard Drinks/Week Comments Yes 0 (1 standard drink = 0.6 oz pure alcoho l) 4 BEERS A WEEK Alcohol Habits Answer Date Recorded How often do you have a drink containing 4 or more times a w [place] 05/25/2021 alcohol? How many drinks containing [...] you attend judaism or Patient refused 2020 pentecostalism services? Do [...] Encounter - Page, Esthela M, RN - 02/09/2019 10:01 AM CDT Pt did not request RF Esthela Corea RN Telephone Encounter - Wendi Lindsay RN - 02/09/2019 9:26 AM CDT LMTRC Why needing? He needs to follow up with rheumatology as previously indicated Wendi Lindsay RN, BSN Telephone Encounter - Carlos Alberto Black - 02/09/2019 6:40 AM CDT predniSONE (DELTASONE) 20 MG tablet Last Written Prescription Date: 01/09/2019 Last Fill Quantity: 30 tablet, # refills: 0 Last Office Visit: 01/09/2019 Future Office visit: Routing refill request to provider for review/approval because: Drug not on the [facility], P or [facility] refill protocol or controlled substance Carlos Alberto Black XRT documented in this encounter Plan of Treatment Upcoming Encounters Date Type Specialty Care Team Description 05/20/2022 Lab Lab documented as of this encounter Visit Diagnoses Diagnosis Inflammatory arthritis Unspecified inflammatory polyarthropathy documented in this encounter Care Teams Artistic Associate Relationship Specialty Start Date End Date Froylan Louise MD PCP - General Family Practice 02/22/14 Froylan Louise MD Assigned PCP 03/13/14 2 documented as of this encounter
--- OUTSIDE RECORDS SUMMARY | 2022-05-15 22:28 | XMS_ITS | Encounter Summary ---
:1955 Author Organization [facility] Address [address] [place] [address] Care Team Providers Name Role Phone Froylan Louise MD Primary Care Provider Unavailable Froylan Louise MD Unavailable Unavailable Encounter Details Date Type Department Care Team Description 02/09/2019 Travel Social History Tobacco Use Types Packs/Day [...] you attend latter-day or Patient refused 2020 presybeterian services? Do [...] on filedocumented in this encounter Care Teams Cdl Team Truck Driver Relationship Specialty Start Date End Date Froylan Louise MD PCP - General Family Practice 02/22/14 Froylan Louise MD Assigned PCP 03/13/14 2 documented as of this encounter
--- OUTSIDE RECORDS SUMMARY | 2022-05-15 22:28 | XMS_ITS | Encounter Summary ---
:1955 Author Organization [facility] Address [address] [place] [address] Care Team Providers Name Role Phone Froylan Louise MD Primary Care Provider Unavailable Froylan Louise MD Unavailable Unavailable Reason for Visit Reason Onset Date Comments Panel Management 04/02/2019 colon cancer screeni ng Encounter Details Date Type Department Care Team Description 04/02/2019 Telephone [facility] Froylan Louise Pane l Management (colon Clinic [place] cancer screening ) [address] [place] [address] Social History Tobacco Use Types [...] containing 4 or more times a w ken[place]ze 05/25/2021 alcohol? How many drinks containing alcohol [...] you attend methodist or Patient refused 2020 orthodox services? Do [...] Notes Telephone Encounter - Carolin Dawson - 04/02/2019 9:22 AM CDT Sent letter. Carolin Dawson Combine Inspector documented in this encounter Plan of Treatment Upcoming Encounters Date Type Specialty Care Team Description 05/20/2022 Lab Lab documented as of this encounter Visit Diagnoses Not on filedocumented in this encounter Care Teams Retail Field Supervisor Relationship Specialty Start Date End Date Froylan Louise MD PCP - General Family Practice 02/22/14 Froylan Louise MD Assigned PCP 03/13/14 2 documented as of this encounter
--- OUTSIDE RECORDS SUMMARY | 2022-05-15 22:28 | XMS_ITS | Encounter Summary ---
:1955 Author Organization [facility] [place] Address [address] [place] [address] Care Team Providers Name Role Phone Froylan Louise MD Primary Care Provider Unavailable Froylan Louise MD Unavailable Unavailable Encounter Details Date Type Department Care Team Description 02/09/[address] [facility] manager long term care current use Visit Clinic [facility] [id number] [place] [phone] Social History Tobacco Use Types Packs/Day Years Used Date Smoking Tobacco: Former Cigarettes 2 25 Quit : 08/04/2006 Smokeless Tobacco: Never Comments: 2005 Alcohol Use Standard Drinks/Week Comments Yes 0 (1 standard drink = 0.6 oz pure alcoho l) 4 BEERS A WEEK Alcohol Habits Answer Date Recorded How often do you have a drink containing 4 or more times a w [place] 05/25/2021 alcohol? How many drinks containing alcohol [...] you attend sabianism or Patient refused 2020 protestant services? Do [...] documented as of this encounter Progress Notes Wendi Lindsay RN - 02/09/2019 10:30 AM CDT ANTICOAGULATION FOLLOW-UP CLINIC VISIT Patient Name: Virgil Christine Date: 02/09/2019 Contact Type: Face to Face SUBJECTIVE: Patient Findings Positives: Change in medications Comments: Finished prednisone 3 days ago Clinical Outcomes Comments: Finished prednisone 3 days ago OBJECTIVE INR Protime Date Value Ref Range Status 02/09/2019 1.8 (A) 0.86 - 1.14 Final Chromogenic Factor [...] than 2. ASSESSMENT / PLAN INR assessment SUB Recheck INR In: 2 WEEKS INR Location Clinic Anticoagulation Summary As of 02/09/2019 INR goal: 2.0-3.0 TTR: 66.6 % (1.1 y) INR used for dosin.8! (02/09/2019) Warfarin maintenance plan: 5 mg (5 mg x 1) every Mon, Wed, Fri; 7.5 mg (7.5 mg x 1) all other days Full warfarin instructions: 02/09: 10 mg; Otherwise 5 mg every Mon, Wed, Fri; 7.5 mg all other days Weekly warfarin total: 45 mg Plan last modified: Yeimi Daniel RN (02/12/2018) Next INR check: 02/26/2019 Target end date: Indications Long-term (current) use of anticoagulants [Z79.01] [Z79.01] Embolism and thrombosis (H) (Resolved) [I74.9] Anticoagulation Episode Summary INR check location: Preferred lab: Send INR reminders to: [facility] Comments: See the Encounter Report to view Anticoagulation Flowsheet and Dosing Calendar (Go to Encounters tabin chart review, and find the Anticoagulation Therapy Visit) Dosage adjustment made based on physician directed care plan. Wendi Lindsay RN documented in this encounter Plan of Treatment Upcoming Encounters Date Type Specialty Care Team Description 05/20/2022 Lab Lab documented as of this encounter Procedures Procedure Name Priority Date/Time Associated Diagnosis Comme nts INR POINT OF CARE Routine 02/09/2019 senior living current use o f Results for this anticoagulant therapy proced ure are in the results section . documented in this encounter Results (ABNORMAL) INR point of care (02/09/2019) athologist Signature INR Point of 1.8 (A) 0.86 - [facility] 1.14 [facility] Specimen (Source) Anatomical Location Collection Method / Collectio n Time Received Time / Laterality Volume 02/09/2019 Froylan Louise MD LAB - BLOOD ORDERABLES Performing Organization Address City/State/ZIP Code Phon e Number [facility] [address] [place] [address] documented in this encounter Visit Diagnoses Diagnosis manager long term care current use of anticoagulant t herapy documented in this encounter Care Teams Secretary Of Police Relationship Specialty Start Date End Date Froylan Louise MD PCP - General Family Practice 02/22/14 Froylan Louise MD Assigned PCP 03/13/14 2 documented as of this encounter
--- OUTSIDE RECORDS SUMMARY | 2022-05-15 22:28 | XMS_ITS | Encounter Summary ---
:1955 Author Organization [facility] Address [address] [place] [address] Care Team Providers Name Role Phone Froylan Louise MD Primary Care Provider Unavailable Froylan Louise MD Unavailable Unavailable Encounter Details Date Type Department Care Team Description 03/17/2019 Travel Social History Tobacco Use Types Packs/Day [...] on filedocumented in this encounter Care Teams Perforator Typist Relationship Specialty Start Date End Date Froylan Louise MD PCP - General Family Practice 02/22/14 Froylan Louise MD Assigned PCP 03/13/14 2 documented as of this encounter
--- OUTSIDE RECORDS SUMMARY | 2022-05-15 22:28 | XMS_ITS | Encounter Summary ---
:1955 Author Organization [facility] Address [address] [place] [id number] Care Team Providers Name Role Phone Froylan Louise MD Primary Care Provider Unavailable Froylan Louise MD Unavailable Unavailable Reason for Visit Reason Onset Date Comments Refill Request 04/12/2019 warfarin (COUMADIN) 5 MG tablet Encounter Details Date Type Department Care Team Description 04/12/2019 Refill [facility] Froylan Louise Ra y, Refill Request (warfarin Chhaya VILLASEÑOR (COUMADIN) 5 MG tablet) [address] [place] [address] Social History Tobacco Use [...] containing 4 or more times a w chitimacha 05/25/2021 alcohol? How many drinks containing alcohol [...] you attend yarsani or Patient refused 2020 bahai services? Do [...] Telephone Encounter - Rebecca Dalton RN - 04/12/2019 10:23 AM CDT Anticoagulation Monitoring Return Date Recheck Latest Ref Rng & Units 04/09/2019 05/21/2019 Anticoagulation Monitoring Instructions Latest Ref Rng & Units 04/09/2019 5 mg every Mon, Wed, Fri; 7.5 mg all other days Prescription approved per [facility] Refill Protocol. Rebecca Dalton RN Anticoagulation Nurse - [facility] [place] Telephone Encounter - Carlos Alberto Black - 04/12/2019 7:01 AM CDT Requested Prescriptions Pending Prescriptions Disp Refills ??? warfarin ANTICOAGULANT (COUMADIN) 7.5 MG tablet [Pharmacy Med Name: WARFARIN SODIUM 7.5 MG TABLET] 52 tablet 1 Sig: TAKE 5MG TABLET DAILY ON MON,WED,FRI. AND 7.5MG TABLET ON ALL OTHER DAYS OF THE WEEK. Last Written Prescription Date: 01/21/2019 Last Fill Quantity: 39 tablet, # refills: 1 Last office visit: 01/09/2019 with prescribing provider: 01/09/2019 Future Office Visit: Vitamin K Antagonists Failed - 04/12/2019 1:37 AM Failed - INR is within goal in the past 6 weeks Confirm INR is within goal in the past 6 weeks. Recent Labs Lab Test 04/09/19 1545 INR 2.10* Failed - Medication is active on med list Passed - Recent (12 mo) or future (30 days) visit within the authorizing provider's specialty Patient has had an office visit with the authorizing provider or a provider within the authorizing providers department within the previous 12 mos or has a future within next 30 days. See Patient Info tab in inbasket, or Choose Columns in Meds & Orders section of the refill encounter. Passed - Patient is 18 years of age or older Carlos Alberto Black XRT documented in this encounter Plan of Treatment Upcoming Encounters Date Type Specialty Care Team Description 05/20/2022 Lab Lab documented as of this encounter Visit Diagnoses Diagnosis Acute deep vein thrombosis (DVT) of prox imal vein of both lower extremities (H) documented in this encounter Care Teams Candy Maker Helper Relationship Specialty Start Date End Date Froylan Louise MD PCP - General Family Practice 02/22/14 Froylan Louise MD Assigned PCP 03/13/14 2 documented as of this encounter
--- OUTSIDE RECORDS SUMMARY | 2022-05-15 22:28 | XMS_ITS | Encounter Summary ---
:1955 Author Organization [facility] Address [address] [place] [address] Care Team Providers Name Role Phone Froylan Louise MD Primary Care Provider Unavailable Froylan Louise MD Unavailable Unavailable Encounter Details Date Type Department Care Team Description 02/26/2019 Travel Social History Tobacco Use Types Packs/Day Years Used Date Smoking Tobacco: Former Cigarettes 2 25 Quit : 08/04/2006 Smokeless Tobacco: Never Comments: 2005 Alcohol Use Standard Drinks/Week Comments Yes 0 (1 standard drink = 0.6 oz pure alcoho l) 4 BEERS A WEEK Alcohol Habits Answer Date Recorded How often do you have a drink containing 4 or more times a w bois forte 05/25/2021 alcohol? How many drinks containing alcohol [...] you attend mandaen or Patient refused 2020 jew services? Do [...] on filedocumented in this encounter Care Teams Production Clerks Supervisor Relationship Specialty Start Date End Date Froylan Louise MD PCP - General Family Practice 02/22/14 Froylan Louise MD Assigned PCP 03/13/14 2 documented as of this encounter
--- OUTSIDE RECORDS SUMMARY | 2022-05-15 22:28 | XMS_ITS | Encounter Summary ---
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 Do [...] documented as of this encounter Progress Notes Page, Esthela Conrad RN - 02/26/2019 4:00 PM CDT ANTICOAGULATION FOLLOW-UP CLINIC VISIT Patient Name: Virgil Christine Date: 02/26/2019 Contact Type: Face to Face SUBJECTIVE: Patient Findings Comments: The patient was assessed for diet, medication, and activity level changes, missed or extra doses, bruising or bleeding, with no problem findings. Clinical Outcomes Comments: The patient was assessed for diet, medication, and activity level changes, missed or extra doses, bruising or bleeding, with no problem findings. OBJECTIVE INR Protime Date Value Ref Range [...] INR less than 2. ASSESSMENT / PLAN No question data found. Anticoagulation Summary As of 02/26/2019 INR goal: 2.0-3.0 TTR: 66.6 % (1.1 y) INR used for dosing: Warfarin maintenance plan: 5 mg (5 mg x 1) every Mon, Wed, Fri; 7.5 mg (7.5 mg x 1) all other days Full warfarin instructions: 5 mg every Mon, Wed, Fri; 7.5 mg all other days Weekly warfarin total: 45 mg Plan last modified: Yeimi Daniel RN (02/12/2018) Next INR check: 04/09/2019 Target end date: Indications Long-term (current) use of anticoagulants [Z79.01] [Z79.01] Embolism and thrombosis (H) (Resolved) [I74.9] Anticoagulation Episode Summary INR check location: Preferred lab: Send INR reminders to: [facility] Comments: See the Encounter Report to view Anticoagulation Flowsheet and Dosing Calendar (Go to Encounters tabin chart review, and find the Anticoagulation Therapy Visit) Esthela Corea RN documented in this encounter Miscellaneous Notes Addendum Note - Diana Sequeira RN - 02/26/2019 4:00 PM CDT Addended by: DIANA SEQUEIRA on: 04/09/2019 12:44 PM Modules accepted: Orders documented in this encounter Plan of Treatment Upcoming Encounters Date Type Specialty Care Team Description 05/20/2022 Lab Lab documented as of this encounter Procedures Procedure Name Priority Date/Time Associated Diagnosis Comme nts INR POINT OF CARE Routine 02/26/2019 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 documented in this encounter Results (ABNORMAL) INR point of care (02/26/2019) athologist Signature INR Point of 2.7 (A) 0.86 - [facility] 1.14 [facility] Specimen (Source) Anatomical Location Collection Method / Collectio n Time Received Time / Laterality Volume 02/26/2019 Froylan Louise MD LAB - BLOOD ORDERABLES Performing Organization Address City/State/ZIP Code Phon e Number 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
--- OUTSIDE RECORDS SUMMARY | 2022-05-15 22:28 | XMS_ITS | Encounter Summary ---
:1955 Author Organization [facility] Address [address] [place] [address] Care Team Providers Name Role Phone Froylan Louise MD Primary Care Provider Unavailable Froylan Louise MD Unavailable Unavailable Reason for Visit Reason Comments Medication Refill zolpidem ER (AMBIEN CR) 12.5 MG CR tablet [ Encounter Details Date Type Department Care Team Description 04/29/2019 Refill [facility] Froylan Louise Ra, Medication Refill Chhaya VILLASEÑOR (zolpidem ER (AMBIEN CR) [address] [facility] 12.5 MG CR tablet [) [place] [address] Social History Tobacco Use [...] attend roman catholic or Patient refused 2020 muslim services? [...] Telephone Encounter - Esthela Corea RN - 04/30/2019 10:30 AM CST RX monitoring program ([place]) reviewed: PACKAGING DESIGNER reviewed- no concerns He is over due for med f/u but scheduled for 06/11 Last filled # 30 Esthela Corea RN TRICAL RESEARCH ENGINEER Telephone Encounter - Arleen Vidal RRT - 04/29/2019 9:28 PM CST Controlled Substance Refill Request for zolpidem ER (AMBIEN CR) 12.5 MG CR tablet [ Problem List Complete: No PROVIDER TO CONSIDER COMPLETION OF PROBLEM LIST AND OVERVIEW/CONTROLLED SUBSTANCE AGREEMENT Last Written Prescription Date: 12/23/2018 Last Fill Quantity: 30, # refills: 0 Last Office Visit with [facility] primary care provider: 01/09/2019 Future Office visit: Controlled substance agreement: Encounter-Level CSA: There are no encounter-level csa. Patient-Level CSA: There are no patient-level csa. 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 No, route to RN TRICAL RESEARCH ENGINEER documented in this encounter Plan of Treatment Upcoming Encounters Date Type Specialty Care Team Description 05/20/2022 Lab Lab documented as of this encounter Visit Diagnoses Diagnosis Insomnia, unspecified type documented in this encounter Care Teams Child Life Assistant Relationship Specialty Start Date End Date Froylan Louise MD PCP - General Family Practice 02/22/14 Froylan Louise MD Assigned PCP 03/13/14 2 documented as of this encounter
--- OUTSIDE RECORDS SUMMARY | 2022-05-15 22:29 | XMS_ITS | Encounter Summary ---
:1955 Author Organization [facility] Address [address] [place] [address] Care Team Providers Name Role Phone Froylan Louise MD Primary Care Provider Unavailable Froylan Louise MD Unavailable Unavailable Reason for Visit Reason Onset Date Comments Medication Refill multiple medications Refill Request 10/09/2018 Encounter Details Date Type Department Care Team Description 10/07/2018 Refill [facility] Froylan Louise Ra, Medication Refill Chhaya VILLASEÑOR (multiple medications); [address] [facility] [place] [address] Social History Tobacco Use [...] you attend advent or Patient refused 2020 mosque services? Do [...] Notes Telephone Encounter - Carolin Dawson - 10/09/2018 10:41 AM CDT Rx for Ambien was faxed to [facility]. Carolin Dawson Residential Pest Control Technician Telephone Encounter - Esthela Corea RN - 10/08/2018 1:21 PM CDT Requested Prescriptions Pending Prescriptions Disp Refills ??? zolpidem ER (AMBIEN CR) 12.5 MG CR tablet [Pharmacy Med Name: ZOLPIDEM TART ER 12.5 MG TAB] 30 tablet 0 Sig: TAKE 1 TABLET BY MOUTH NIGHTLY NEEDED FOR SLEEP There is no refill protocol information for this order ??? terazosin (HYTRIN) 2 MG capsule 90 capsule 1 Sig: Take 1 capsule (2 mg) by mouth At Bedtime There is no refill protocol information for this order Signed Prescriptions Disp Refills warfarin (COUMADIN) 7.5 MG tablet 100 tablet 0 Si mg M// 7.5 all other days of the week Vitamin K Antagonists Failed - 10/08/2018 10:16 AM Failed - INR is within goal in the past 6 weeks Confirm INR is within goal in the past 6 weeks. Recent Labs Lab Test 08/27/18 INR 3.6* Passed - Recent (12 mo) or future [...] is 18 years of age or older Refused Prescriptions Disp Refills ??? enoxaparin (LOVENOX) 40 MG/0.4ML syringe [Pharmacy Med Name: ENOXAPARIN 40 MG/0.4 ML SYR] 4 Syringe 0 Sig: INJECT 0.4 MLS (40 MG) SUBCUTANEOUS DAILY FOR 10 DAYS There is no refill protocol information for this order Telephone Encounter - Adriana Caro - 10/08/2018 12:22 PM CDT Pt returned call, he does not take Lovenox, asking to have it removed from his med list. He said he needs the Ambien, Coumadin 7.5 mg and a prostrate lubricant pill but he didn't know the name of the med Brandon Vania Residential Pest Control Technician 10/08/18 12:24 PM Telephone Encounter - Esthela Corea RN - 10/08/2018 10:27 AM CDT LM for call back- Why does pt need lovenox? Esthela Corea RN Telephone Encounter - Esthela Corea RN - 10/08/2018 10:24 AM CDT RX monitoring program ([place]) reviewed: BUILDING TRADES TEACHER reviewed- no concerns Last fill 08/10/18 Prescription approved per [facility] Refill Protocol. For coumadin Esthela Corea RN Telephone Encounter - Arleen Vidal RRT - 10/07/2018 8:19 PM CDT Requested Prescriptions Pending Prescriptions Disp Refills Controlled Substance Refill Request for zolpidem ER (AMBIEN CR) 12.5 MG CR tablet Problem List Complete: No PROVIDER TO CONSIDER COMPLETION OF PROBLEM LIST AND OVERVIEW/CONTROLLED SUBSTANCE AGREEMENT Last Written Prescription Date: 08/10/2018 Last Fill Quantity: 30, # refills: 0 Last Office Visit with [facility] primary care provider: 08/10/2018 Future Office visit: Controlled substance agreement: Encounter-Level CSA: There are no encounter-level csa. Patient-Level CSA: There are no patient-level csa. 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 No, route to RN ??? enoxaparin (LOVENOX) 40 MG/0.4ML syringe [Pharmacy Med Name: ENOXAPARIN 40 MG/0.4 ML SYR] Last Written Prescription Date: 06/05/2018 Last Fill Quantity: 4ml, # refills: 0 Last office visit: 08/10/2018 with prescribing provider: 08/10/2018 Future Office Visit: 4 Syringe 0 Sig: INJECT 0.4 MLS (40 MG) SUBCUTANEOUS DAILY FOR 10 DAYS There is no refill protocol information for this order documented in this encounter Plan of Treatment Upcoming Encounters Date Type Specialty Care Team Description 05/20/2022 Lab Lab documented as of this encounter Visit Diagnoses Diagnosis Insomnia, unspecified type 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
--- OUTSIDE RECORDS SUMMARY | 2022-05-15 22:29 | XMS_ITS | Encounter Summary ---
:1955 Author Organization [place] Address [facility]0 [facility] [place] [address] Care Team Providers Name Role Phone Froylan Louise MD Primary Care Provider Unavailable Froylan Louise MD Unavailable Unavailable Froylan Louise MD Unavailable Unavailable Reason for Visit Reason Comments Urgent Care URI Sever cough, myalgia, coughi ng up a lot mucous, [place], sinus pressure and pain, laryngitis, fatigue, h asn't been sleeping due to cough, nasal congestion. Sx x1 week Encounter Details Date Type Department Care Team Description 08/19/2018 Office Visit [facility] BarbourWilliams Exacerba tion of asthma, unspecified asthma severity, unspecified whether persistent (Primary Dx); Urgent Care Valentina oCllins MD Throat pain; [address] [place] [address] [phone] Social History Tobacco Use Types Packs/Day Years Used Date Smoking Tobacco: Former Cigarettes 2 25 Quit : 08/04/2006 Smokeless Tobacco: Never Comments: 2004 Alcohol Use Standard Drinks/Week Comments Yes 0 (1 standard drink = 0.6 oz pure alcoho l) 4 BEERS A WEEK Alcohol Habits Answer Date Recorded How often do you have a drink containing 4 or more times a w [place] 05/25/2021 alcohol? How many drinks containing [...] you attend worship or Patient refused 2020 anglican services? Do [...] Sign Reading Time Taken Comments Blood Pressure 140/68 08/19/2018 3:43 PM UNIVERSITY MANAGER Pulse 97 08/19/2018 3:43 PM UNIVERSITY MANAGER Temperature 37.9 ??C (100.3 ??F) 08/19/2018 3:43 PM UNIVERSITY MANAGER Respiratory Rate - - Oxygen Saturation 98% 08/19/2018 3:43 PM UNIVERSITY MANAGER Inhaled Oxygen Concentration - - Weight - - Height - - Body Mass Index - - documented in this encounter Patient Instructions Patient InstructionsWilliams Barbour MD - 08/19/2018 3:20 PM CST Augmentin* twice a day for 10 days Albuterol inhaler as needed every 2-4 hours (2 puffs) when feeling short of breath or having a coughfit -- (RESCUE INHALER) Robitussin/Codeine* at night time to treat the cough Day time use Mucinex (dextromethorphan + guaifenesin) to treat your cough every 6 hours Call if you have new or worsening symptoms ERSITY MANAGER documented in this encounter Progress Notes Williams Barbour MD - 08/19/2018 3:20 PM CST Subjective: Virgil Christine is a 62 year old male who presents for Chief Complaint Patient presents with ??? Urgent Care ??? URI Sever cough, myalgia, coughing up a lot mucous, TAYLOR, sinus pressure and pain, laryngitis, fatigue, hasn't been sleeping due to cough, nasal congestion. Sx x1 week Over a week of heavy cough. Feeling sore in the ribs as a result. Patient reports shortness of breath at times. Has had fevers at home. Denies sinus pressure but does get congested. He has tried cold and sinus relief which has ibuprofen and sudafed. Recently switch to symbicort for QVAR - also has albuterol. Patient did receive flu shot as he does yearly. Patient Active Problem List Diagnosis Date Noted ??? [facility] 07/16/2011 Priority: High EMERGENCY CARE PLAN Presenting Problem Signs and Symptoms Treatment Plan Questions or conerns during clinic hours I will call the clinic directly Questions or conerns outside clinic hours I will call the 24 hour nurse line at [phone] Patient needs to schedule an appointment I will call the 24 hour scheduling team at [phone] orclinic directly Same day treatment I will call the clinic first, nurse line if after hours, urgent care and expresscare if needed DX V65.8 REPLACED WITH [id number] [facility] (09/28/2012) ??? Chronic deep vein thrombosis (DVT) of [...] Priority: Medium ? ? Hyperlipidemia LDL goal <160 08/14/2011 Priority: Medium ??? Mild persistent asthma 04/18/2010 Priority: Medium ??? Anticardiolipin antibody positive 12/14/2008 Priority: Medium Overview: Overview: DVT and PE DVT and PE Current Outpatient Medications Medication ??? Acetaminophen (TYLENOL 8 HOUR PO) ??? albuterol (PROAIR HFA/PROVENTIL HFA/VENTOLIN HFA) 108 (90 Base) MCG/ACT inhaler ??? amoxicillin-clavulanate (AUGMENTIN) 875-125 MG tablet ??? furosemide (LASIX) 20 MG tablet ??? guaiFENesin-codeine (ROBITUSSIN AC) 100-10 MG/5ML solution ??? loperamide (IMODIUM) 2 MG capsule ??? multivitamin w/minerals (MULTI-VITAMIN) tablet ??? order for DME ??? sildenafil (VIAGRA) 50 MG tablet ??? SYMBICORT 160-4.5 MCG/ACT Inhaler ??? terazosin (HYTRIN) 2 MG capsule ??? triamcinolone (KENALOG) 0.1 % external cream ??? warfarin (COUMADIN) 5 MG tablet ??? warfarin (COUMADIN) 7.5 MG tablet ??? zolpidem ER (AMBIEN CR) 12.5 MG CR tablet ??? order for DME ??? order for DME No current facility-administered medications for this visit. Facility-Administered Medications Ordered in Other Visits Medication ??? HYDROmorphone (PF) (DILAUDID) injection ROS: As above per HPI Objective: BP 140/68 (BP Location: Right arm, Patient Position: Chair, Cuff Size: Adult Large) Pulse 97 Temp 100.3 ??F (37.9 ??C) (Oral) SpO2 98% , There is no height or weight on file to calculate BMI. Gen: NAD, well-nourished, sitting in chair comfortably HEENT: EOMI, sclera anicteric, Head normocephalic, ; nares patent; moist mucous membranes Neck: trachea midline, no thyromegaly CV: Hemodynamically stable, RRR Pulm: no increased work of breathing , No crackles, subtle wheezes in the left lower field Extrem: no cyanosis, edema or clubbing Skin: no obvious rashes or abnormalities Psych: Euthymic, linear thoughts, normal rate of speech Results for orders placed or performed in visit on 08/19/18 INR Result Value Ref Range INR 1.90 (H) 0.86 - 1.14 Rapid strep screen Result Value Ref Range Specimen Description Throat Rapid Strep A Screen NEGATIVE: No Group A streptococcal antigen detected by immunoassay, await culture report. Assessment & Plan: Virgil Christine, 62 year old male who presents with: Exacerbation of asthma, unspecified asthma severity, unspecified whether persistent Patient presenting with heavy cough and has been febrile for several days. I feel more inclined to treat with antibiotics given his presentation and history of asthma. Pneumonia is a possibility and wediscussed this and thus we deferred imaging in favor of proceeding with treatment . For the prominent cough especially at night time robitussin /codeine was given today. - amoxicillin-clavulanate (AUGMENTIN) 875-125 MG tablet Dispense: 20 tablet; Refill: 0 - guaiFENesin-codeine (ROBITUSSIN AC) 100-10 MG/5ML solution Dispense: 118 mL; Refill: 0 - Rapid strep screen On warfarin therapy Subtherapeutic today at 1.9 (goal 2-3). INR nurse will call patient tomorrow with follow-up plan - INR Williams Barbour MD [place] [facility] The use of [employer] dictation services may have been used to construct the content in this note; any grammatical or spelling errors are non- intentional. Please contact the author of this note directly if you are in need of any clarification. ERSITY MANAGER documented in this encounter Plan of Treatment Upcoming Encounters Date Type Specialty Care Team Description 05/20/2022 Lab Lab documented as of this encounter Procedures Procedure Name Priority Date/Time Associated Diagnosis Comme nts INR Routine 08/19/2018 3:57 PM On warfarin therapy Re sults for this UNIVERSITY MANAGER procedure are i n the results section. RAPID STREP SCREEN Routine 08/19/2018 3:52 PM Throat pain Res ults for this THROAT SWAB UNIVERSITY MANAGER procedure are i n the results section. BETA HEMOLYTIC Routine 08/19/2018 3:52 PM Throat pain Results for this STREP GROUP A UNIVERSITY MANAGER procedure are in CULTURE the results section. documented in this encounter Results (ABNORMAL) INR (08/19/2018 3:57 PM UNIVERSITY MANAGER) P athologist Signature INR 1.90 (H) 0.86 - 1.14 08/19/2018 [place] 4:06 PM UNIVERSITY MANAGER [facility] Comment: This test is intended for monitoring Cou madin therapy. ??Results are not accurate in patients with prolonged INR due to factor deficiency. Specimen Anatomical Collection Method Collection Time Receive d Time (Source) Location / / Volume Laterality Blood specimen 08/19/2018 3:57 PM 019 3:58 (specimen) UNIVERSITY MANAGER PM UNIVERSITY MANAGER Williams Barbour MD LAB - BLOOD ORDERABLES Performing Organization Address [facility]/ZIP Code Phon e Number [facility] [address] [place] [address] Beta strep group A culture (08/19/2018 3:52 PM UNIVERSITY MANAGER) Component Value Ref Test Analysis Performed At Patholo gist Range Method Time Signature Specimen Throat [facility] Culture Micro No beta 08/20/2018 [place] hemolytic 2:08 PM UNIVERSITY MANAGER [facility] Streptococcus MERTZON Group A isolated Specimen Anatomical Collection Method Collection Time Receive d Time (Source) Location / / Volume Laterality Specimen from 08/19/2018 3:52 PM 08/19/19 19 4:54 throat UNIVERSITY MANAGER PM UNIVERSITY MANAGER (specimen) Williams Barbour MD LAB - MICRO GENERAL ORDERABL ES Performing Organization Address [facility] Code Phon e Number [facility] [id number] [place] [address] Rapid strep screen (08/19/2018 3:52 PM UNIVERSITY MANAGER) Component Value Ref Test Analysis Performed [facility] Range Method Time Signature Specimen Throat [facility] Rapid Strep A NEGATIVE: No 08/19/2018 [place] Screen Group A 4:04 PM UNIVERSITY MANAGER [facility] streptococcal MERTZON antigen detected by immunoassay, await culture report. Specimen Anatomical Collection Method Collection Time Receive d Time (Source) Location / / Volume Laterality Specimen from 08/19/2018 3:52 PM 08/19/19 19 3:53 throat UNIVERSITY MANAGER PM UNIVERSITY MANAGER (specimen) Williams Barbour MD LAB - MICRO GENERAL ORDERABL ES Performing Organization Address City/[facility]/ZIP Code Phon e Number [facility] [address] [place] [address] documented in this encounter Visit Diagnoses Diagnosis Exacerbation of asthma, unspecified asth ma severity, unspecified whether persistent - Primary Throat pain On warfarin therapy documented in this encounter Care Teams Sand Technician Relationship Specialty Start Date End Date Froylan Louise MD PCP - General Family Practice 02/22/14 Froylan Louise MD PCP - Assigned PCP 03/13/14 08/25/18 Froylan Louise MD Assigned PCP 03/13/14 2 documented as of this encounter
--- OUTSIDE RECORDS SUMMARY | 2022-05-15 22:29 | XMS_ITS | Encounter Summary ---
:1955 Author Organization [facility] Address [address] [place] [address] Care Team Providers Name Role Phone Froylan Louise MD Primary Care Provider Unavailable Froylan Louise MD Unavailable Unavailable Reason for Visit Reason Onset Date Comments Nurse Advice Line 09/02/2018 compression stocking s Encounter Details Date Type Department Care Team Description 09/02/2018 Telephone [facility] Froylan Louise Nurs e Advice Line [facility] Chhaya VILLASEÑOR (compression stockings) [address] [place] [address] Social History Tobacco Use Types [...] you attend orthodox or Patient refused 2020 nondenominational services? Do [...] Notes Telephone Encounter - Carolin Dawson - 09/08/2018 12:13 PM CDT Rx was faxed to [facility]. Carolin Dawson Casket Inspector Telephone Encounter - Wendi Busch RN - 09/08/2018 11:18 AM CDT Please have provider sign and then fax Wendi Busch RN, BSN Telephone Encounter - Adriana Caro - 09/08/2018 10:53 AM CDT [facility] calling asking for DME order to be faxed to them at [phone] Brandon Vania Casket Inspector 09/08/18 10:54 AM Telephone Encounter - Nay Simmons RN - 09/02/2018 2:43 PM CDT Requesting refill of compression stockings, insurance allows 4 a year Disp Refills Start End JAIDEN order for DME 1 Units 0 08/10/2018 08/10/2019 -- Sig: Equipment being ordered: compression stockings, fit to size, 30-40 mm Hg, thigh high, 1 Prescription approved per 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
--- OUTSIDE RECORDS SUMMARY | 2022-05-15 22:29 | XMS_ITS | Encounter Summary ---
:1955 Author Organization [facility] Address [address] [place] [address] Care Team Providers Name Role Phone Froylan Louise MD Primary Care Provider Unavailable Froylan Louise MD Unavailable Unavailable Froylan Louise MD Unavailable Unavailable Encounter Details Date Type Department Care Team Description 08/19/2018 Travel Social History Tobacco Use Types Packs/Day [...] you attend samaritan or Patient refused 2020 restoration services? Do you belong to any clubs [...] filedocumented in this encounter Care Teams Heel Edge Inker Machine Relationship Specialty Start Date End Date Froylan Louise MD PCP - General Family Practice 02/22/14 Froylan Louise MD PCP - Assigned PCP 03/13/14 08/25/18 Froylan Louise MD Assigned PCP 03/13/14 2 documented as of this encounter
--- OUTSIDE RECORDS SUMMARY | 2022-05-15 22:29 | XMS_ITS | Encounter Summary ---
:1955 Author Organization [facility] Address [address] [place] [address] Care Team Providers Name Role Phone Froylan Louise MD Primary Care Provider Unavailable Froylan Louise MD Unavailable Unavailable Reason for Visit Reason Onset Date Comments Patient Request 12/10/2018 Encounter Details Date Type Department Care Team Description 12/10/2018 Telephone [facility] Froylan Louise Ra, MD Patient Request [address] [address] Social History Tobacco [...] containing 4 or more times a w [place] 05/25/2021 alcohol? How many drinks containing alcohol [...] you attend holiness or Patient refused 2020 zoroastrian services? Do [...] Notes Telephone Encounter - Carolin Dawson - 12/10/2018 1:27 PM CDT Called patient, at this time he doesn't need for us to fax his medication list at this time. Carolin Dawson Real Estate Services Coordinator Telephone Encounter - Court Gonzalez - 12/10/2018 12:54 PM CDT Patient would like his medication records faxed over to Dr. Barbosa at [facility]. Please call to discuss. documented in this encounter Plan of Treatment Upcoming Encounters Date Type Specialty Care Team Description 05/20/2022 Lab Lab documented as of this encounter Visit Diagnoses Not on filedocumented in this encounter Care Teams Compliance Review Specialist Relationship Specialty Start Date End Date rFoylan Louise MD PCP - General Family Practice 02/22/14 Froylan Louise MD Assigned PCP 03/13/14 2 documented as of this encounter
--- OUTSIDE RECORDS SUMMARY | 2022-05-15 22:29 | XMS_ITS | Encounter Summary ---
:1955 Author Organization [facility] Address [address] [place] [address] Care Team Providers Name Role Phone Froylan Louise MD Primary Care Provider Unavailable Froylan Louise MD Unavailable Unavailable Reason for Visit Reason Onset Date Comments Refill Request 09/30/2018 SYMBICORT 160-4.5 G/ACT Inhaler Encounter Details Date Type Department Care Team Description 09/30/2018 [facility] Froylan Louise Ra, Refill Request Chhaya VILLASEÑOR (SYMBICORT 160-4.5 [address] [facility] MCG/ACT Inhaler) [place] [address] Social History Tobacco Use [...] containing 4 or more times a w [place] 05/25/2021 alcohol? How many drinks containing alcohol [...] you attend yazdanism or Patient refused 2020 spiritism services? Do [...] Telephone Encounter - Wendi Lindsay RN - 09/30/2018 2:15 PM CDT Prescription approved per [facility] Refill Protocol. Wendi Lindsay RN, BSN Telephone Encounter - Carlos Alberto Black - 09/30/2018 2:13 PM CDT Requested Prescriptions Pending Prescriptions Disp Refills ??? SYMBICORT 160-4.5 MCG/ACT Inhaler [Pharmacy Med Name: SYMBICORT 160-4.5 MCG INHALER] 30.6 Inhaler 0 Sig: TAKE 2 PUFFS BY MOUTH TWICE A DAY Last Written Prescription Date: 08/05/2018 Last Fill Quantity: 1 inhaler, # refills: 0 Last office visit: 08/10/2018 with prescribing provider: 08/10/2018 Future Office Visit: Inhaled Steroids Protocol Passed - 09/30/2018 2:09 PM Passed - Patient is age 14 or [...] asthma documented in this encounter Care Teams Electrophonic Engineer Relationship Specialty Start Date End Date Froylan Louise MD PCP - General Family Practice 02/22/14 Froylan Louise MD Assigned PCP 03/13/14 2 documented as of this encounter
--- OUTSIDE RECORDS SUMMARY | 2022-05-15 22:29 | XMS_ITS | Encounter Summary ---
:1955 Author Organization [place] Address [address] [place] [address] Care Team Providers Name Role Phone Froylan Louise MD Primary Care Provider Unavailable Froylan Louise MD Unavailable Unavailable Encounter Details Date Type Department Care Team Description 10/16/2018 Travel Social History Tobacco Use Types Packs/Day [...] or more times a w [place] 05/25/2021 alcohol? How many drinks containing alcohol [...] you attend temple or Patient refused 2020 voodoo services? Do [...] on filedocumented in this encounter Care Teams Film Printer Relationship Specialty Start Date End Date Froylan Louise MD PCP - General Family Practice 02/22/14 Froylan Louise MD Assigned PCP 03/13/14 2 documented as of this encounter
--- OUTSIDE RECORDS SUMMARY | 2022-05-15 22:29 | XMS_ITS | Encounter Summary ---
:1955 Author Organization [facility] Address [address] [place] [address] Care Team Providers Name Role Phone Froylan Louise MD Primary Care Provider Unavailable Froylan Louise MD Unavailable Unavailable Encounter Details Date Type Department Care Team Description 01/08/2019 Travel Social History Tobacco Use Types Packs/Day Years Used Date Smoking Tobacco: Former Cigarettes 2 25 Quit : 08/04/2006 Smokeless Tobacco: Never Comments: 2005 Alcohol Use Standard Drinks/Week Comments Yes 0 (1 standard drink = 0.6 oz pure alcoho l) 4 BEERS A WEEK Alcohol Habits Answer Date Recorded How often do you have a drink containing 4 or more times a w [place] 05/25/2021 alcohol? How many drinks containing alcohol [...] you attend uatsdin or Patient refused 2020 holiness services? Do [...] on filedocumented in this encounter Care Teams Global Risk Management Director Relationship Specialty Start Date End Date Froylan Louise MD PCP - General Family Practice 02/22/14 Froylan Louise MD Assigned PCP 03/13/14 2 documented as of this encounter
--- OUTSIDE RECORDS SUMMARY | 2022-05-15 22:29 | XMS_ITS | Encounter Summary ---
:1955 Author Organization [place] Address [address] [place] [address] Care Team Providers Name Role Phone Froylan Louise MD Primary Care Provider Unavailable Froylan Louise MD Unavailable Unavailable Encounter Details Date Type Department Care Team Description 11/27/2018 Travel Social History Tobacco Use Types Packs/Day Years Used Date Smoking Tobacco: Former Cigarettes 2 25 Quit : 08/04/2006 Smokeless Tobacco: Never Comments: 2005 Alcohol Use Standard Drinks/Week Comments Yes 0 (1 standard drink = 0.6 oz pure alcoho l) 4 BEERS A WEEK Alcohol Habits Answer Date Recorded How often do you have a drink containing 4 or more times a w [place] 05/25/2021 alcohol? How many drinks containing alcohol [...] you attend restorationism or Patient refused 2020 judaism services? Do [...] on filedocumented in this encounter Care Teams Oil Burner Servicer And Installer Relationship Specialty Start Date End Date Froylan Louise MD PCP - General Family Practice 02/22/14 Froylan Louise MD Assigned PCP 03/13/14 2 documented as of this encounter
--- OUTSIDE RECORDS SUMMARY | 2022-05-15 22:29 | XMS_ITS | Encounter Summary ---
:1955 Author Organization [place] Address [address] [place] [address] Care Team Providers Name Role Phone Froylan Louise MD Primary Care Provider Unavailable Froylan Louise MD Unavailable Unavailable Encounter Details Date Type Department Care Team Description 11/27/2018 Anticoagulation Therapy Visit [address] [address] Social History Tobacco Use Types Packs/Day [...] you attend sikhism or Patient refused 2020 baptist services? Do [...] encounter Progress Notes Wendi Lindsay RN - 11/27/2018 4:00 PM CDT ANTICOAGULATION FOLLOW-UP CLINIC VISIT Patient Name: Virgil Christine Date: 11/27/2018 Contact Type: Face to Face SUBJECTIVE: Patient [...] INR Protime Date Value Ref Range Status 11/27/2018 2.6 (A) 0.86 - 1.14 Final Chromogenic Factor [...] INR Location Clinic Anticoagulation Summary As of 11/27/2018 INR goal: 2.0-3.0 TTR: 63.0 % (11.4 mo) INR used for dosin.6 (11/27/2018) Warfarin maintenance plan: 5 mg (5 mg x 1) every Mon, Wed, Fri; 7.5 mg (7.5 mg x 1) all other days Full warfarin instructions: 5 mg every Mon, Wed, Fri; 7.5 mg all other days Weekly warfarin total: 45 mg No change documented: Wendi Lindsay RN Plan last modified: Yeimi Daniel RN (02/12/2018) Next INR check: 01/08/2019 Target end date: Indications Long-term (current) use of anticoagulants [Z79.01] [Z79.01] Embolism and thrombosis (H) (Resolved) [I74.9] Anticoagulation Episode Summary INR check location: Preferred lab: Send INR reminders to: [facility] TRI[facility] Comments: See the Encounter Report to view Anticoagulation Flowsheet and Dosing Calendar (Go to Encounters tabin chart review, and find the Anticoagulation Therapy Visit) Wendi Lindsay RN documented in this encounter Plan of Treatment Upcoming Encounters Date Type Specialty Care Team Description 05/20/2022 Lab Lab documented as of this encounter Procedures Procedure Name Priority Date/Time Associated Diagnosis Comme nts INR POINT OF CARE Routine 11/27/2018 Results fo r this procedure are in the resu lts section. documented in this encounter Results (ABNORMAL) INR point of care (11/27/2018) P athologist Signature INR Point of 2.6 (A) 0.86 - [facility] 1.14 [facility] Specimen (Source) Anatomical Location Collection Method / Collectio n Time Received Time / Laterality Volume 11/27/2018 Froylan Louise MD LAB - BLOOD ORDERABLES Performing Organization Address City/State/ZIP Code Phon e Number [facility] [address] [place] [address] documented in this encounter Visit Diagnoses Not on filedocumented in this encounter Care Teams Material Control Supervisor Relationship Specialty Start Date End Date Froylan Louise MD PCP - General Family Practice 02/22/14 Froylan Louise MD Assigned PCP 03/13/14 2 documented as of this encounter
--- OUTSIDE RECORDS SUMMARY | 2022-05-15 22:29 | XMS_ITS | Encounter Summary ---
:1955 Author Organization [place] Address [address] [place] [address] Care Team Providers Name Role Phone Froylan Louise MD Primary Care Provider Unavailable Froylan Louise MD Unavailable Unavailable Reason for Visit Reason Comments Medication Refill triamcinolone (KENALOG) 0.1 % external cream Encounter Details Date Type Department Care Team Description 12/05/2018 Refill [facility] Froylan Louise Ra, Medication Refill Chhaya VILLASEÑOR (triamcinolone (KENALOG) [address] [facility] 0.1 % external cream ) [place] [address] Social History Tobacco Use [...] containing 4 or more times a w sun'aq 05/25/2021 alcohol? How many drinks containing alcohol [...] you attend judaism or Patient refused 2020 sikhism services? Do [...] Telephone Encounter - Wendi Lindsay RN - 12/07/2018 11:37 AM CDT Prescription approved per [facility] Refill Protocol. Wendi Lindsay RN, BSN Telephone Encounter - Arleen Vidal DRIVER/MERCHANDISER - 12/06/2018 2:51 PM CDT Requested Prescriptions Pending Prescriptions Disp Refills ??? triamcinolone (KENALOG) 0.1 % external cream [Pharmacy Med Name: TRIAMCINOLONE 0.1% CREAM] Last Written Prescription Date: 06/10/2018 Last Fill Quantity: 30g, # refills: 0 Last office visit: 08/10/2018 with prescribing provider: 08/10/2018 Future Office Visit: 30 g 0 Sig: APPLY TOPICALLY TWICE DAILY Topical Steroids and Nonsteroidals Protocol Passed - 12/05/2018 4:50 PM Passed - Patient is age 8 [...] - Medication is active on med list documented in this encounter Plan of Treatment Upcoming Encounters Date Type Specialty Care Team Description 05/20/2022 Lab Lab documented as of this encounter Visit Diagnoses Diagnosis Lichen planus documented in this encounter Care Teams Database Designer Relationship Specialty Start Date End Date Froylan Louise MD PCP - General Family Practice 02/22/14 Froylan Louise MD Assigned PCP 03/13/14 2 documented as of this encounter
--- OUTSIDE RECORDS SUMMARY | 2022-05-15 22:29 | XMS_ITS | Encounter Summary ---
:1955 Author Organization [place] Address [address] [place] [address] Care Team Providers Name Role Phone Froylan Louise MD Primary Care Provider Unavailable Froylan Louise MD Unavailable Unavailable Reason for Visit Reason Onset Date Comments INR Followup 09/28/2018 Encounter Details Date Type Department Care Team Description 09/28/2018 Telephone [facility] Froylan Louise Ra, MD INR Followup [address] [address] Social History Tobacco Use [...] you attend baptist or Patient refused 2020 temple services? Do [...] Encounter - Nahomy, Esthela Conrad RN - 09/29/2018 2:52 PM CDT Spoke with Antonieta our INR pharmacist. Reviewed with her that rep with [employer] was very rude and disrespectful on the phone.with pt, Yeimi, and myself. Antonieta will f/u on this issue. Esthela Corea RN Telephone Encounter - Esthela Corea RN - 09/29/2018 9:31 AM CDT LM for pt to call back- What is his plan with the meter. Esthela Corea RN Telephone Encounter - Esthela Corea RN - 09/28/2018 2:44 PM CDT LM for call - These documents were sent in return envelope to them. I believe pt was going to return meter as he was not willing to test every 2 weeks. Esthela Corea RN Telephone Encounter - Vianney Iglesias - 09/28/2018 1:28 PM CDT Valorie with [employer] called in regards to the patient's training documents. She states that she has been in contact with Esthela before in regards to this patient and these documents. She states that you can give her a call back at [phone] ext. [phone] or if you can just fax over thedocuments [phone]. Vianney Iglesias [facility] - TC/FD 09/28/2018 1:31 PM documented in this encounter Plan of Treatment Upcoming Encounters Date Type Specialty Care Team Description 05/20/2022 Lab Lab documented as of this encounter Visit Diagnoses Not on filedocumented in this encounter Care Teams Facility Manager Relationship Specialty Start Date End Date Froylan Louise MD PCP - General Family Practice 02/22/14 Froylan Louise MD Assigned PCP 03/13/14 2 documented as of this encounter
--- OUTSIDE RECORDS SUMMARY | 2022-05-15 22:29 | XMS_ITS | Encounter Summary ---
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 How many drinks containing alcohol [...] you attend mosque or Patient refused 2020 judaism services? 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
--- OUTSIDE RECORDS SUMMARY | 2022-05-15 22:29 | XMS_ITS | Encounter Summary ---
:1955 Author Organization [place] Address [address] [place] [address] Care Team Providers Name Role Phone Froylan Louise MD Primary Care Provider Unavailable Froylan Louise MD Unavailable Unavailable Froylan Louise MD Unavailable Unavailable Reason for Referral Specialty Diagnoses / Procedures Referred By Contact Refer red To Contact Froylan Louise [address] [address] [place] [address] Referral ID Status Reason Start Date Expiration Date Visits Requ ested Visits Authorized Scheduling Instructions ANTICOAGULATION CLINIC COLLABORATIVE AR ACTICE AGREEMENT The following represents a collaborative practice agreement among the physicians of the Clinic and staff of the Anticoagulat ion Clinic Service ([facility]) Physicians shall: 1. Refer patients requiring anticoagulat ion to a specialty service staffed by personnel of Pharmacy Services and super vised by Clinic physicians. 2. Respond to questions and referrals fr pharmacy staff regarding delinquent or difficult patients. 3. Inform the [facility] staff when a new patie nt is to be started on the service in a timely manner including the indication f or warfarin therapy and any variation from the protocol. Anticoagulation service staff shall: 1. Conduct an education program for each patient. 2. Assess each patient for their ability to comply with therapy and their understanding of anticoagulation therapy . 3. Order all doses and dose changes base d on a mutually agreed protocol. 4. Schedule patients for follow-up labor atory and consultation visits. 5. Assess each patient's INR and provide appropriate direction. 6. At each visit, assess each patient fo r his or her risk of adverse or sub-therapeutic effects including at cyn st the following: Has the patient experienced any bleeding since the last INR Has the patient had any bacterial or vir al infections since the last INR Have any medications been added or dueñas ed or stopped since the last INR Has the patient had any symptoms of thro mboemboli since the last INR Has the patient had any dietary changes or changes in eating habits since the last INR Has the patient missed any warfarin/coum binta doses since the last INR Has the patient had a fever since the la st INR Has the patient had unusual diarrhea sin ce the last INR 7. Prepare new prescriptions and authori ze refills for anticoagulants. 8. Serve as a resource to and answer que stions from patients and staff. 9. Identify delinquent patients and init iate appropriate steps to ensure adequate follow-up and monitoring. 10. Refer delinquent patients and other problem situations to a physician for direction. 11. Initiate vitamin K therapy when marta cated. RVISOR MALTED MILK Reason for Visit Reason Onset Date Comments Referral 08/20/2018 inr Encounter Details Date Type Department Care Team Description 08/20/2018 [facility] Froylan Louise Ra, MD Referral (inr) [address] [address] Social History Tobacco Use [...] 4 or more times a w [place] 05/25/2021 alcohol? How many drinks containing alcohol [...] you attend confucianism or Patient refused 2020 church services? Do [...] Telephone Encounter - Wendi Lindsay RN - 08/20/2018 9:03 AM CST Has the patient previously taken warfarin? yes If yes, for what indication? DVT Does the patient have any of the following indications for a higher range of 2.5-3.5: ?? Mitral position mechanical valve? no ?? Brayden-Shiley, Ball and Cage or Monoleaflet valve (regardless of position) no ?? Other (if yes, please explain) no Wendi Lindsay RN, BSN RVISOR MALTED MILK documented in this encounter Plan of Treatment Upcoming Encounters Date Type Specialty Care Team Description 05/20/2022 Lab Lab Scheduled Referrals Name Type Priority Associated Diagnoses Order S chedule INR CLINIC REFERRAL Referral Routine Chronic deep vein Ord ered: 08/20/2018 thrombosis (DVT) of lower extremity, unspecified laterality, unspecified vein (H) intermodal dispatcher current use of anticoagulant therapy documented as of this encounter Visit Diagnoses Diagnosis Chronic deep vein thrombosis (DVT) of lo wer extremity, unspecified laterality, unspecified vein (H) - Primary assisted current use of anticoagulant t herapy documented in this encounter Care Teams Warehouse Assembly Worker Relationship Specialty Start Date End Date Froylan Louise MD PCP - General Family Practice 02/22/14 Froylan Louise MD PCP - Assigned PCP 03/13/14 08/25/18 Froylan Louise MD Assigned PCP 03/13/14 2 documented as of this encounter
--- OUTSIDE RECORDS SUMMARY | 2022-05-15 22:29 | XMS_ITS | Encounter Summary ---
:1955 Author Organization [place] Address [address] [place] [address] Care Team Providers Name Role Phone Froylan Louise MD Primary Care Provider Unavailable Froylan Louise MD Unavailable Unavailable Encounter Details Date Type Department Care Team Description 09/18/2018 Travel Social History Tobacco Use Types Packs/Day [...] you attend zoroastrianism or Patient refused 2020 mormonism services? Do [...] filedocumented in this encounter Care Teams Elevator Mechanic Apprentice Relationship Specialty Start Date End Date Froylan Louise MD PCP - General Family Practice 02/22/14 Froylan Louise MD Assigned PCP 03/13/14 2 documented as of this encounter
--- OUTSIDE RECORDS SUMMARY | 2022-05-15 22:29 | XMS_ITS | Encounter Summary ---
:1955 Author Organization [place] Address [address] [place] [address] Care Team Providers Name Role Phone Froylan Louise MD Primary Care Provider Unavailable Froylan Louise MD Unavailable Unavailable Encounter Details Date Type Department Care Team Description 01/08/2019 Anticoagulation Therapy [facility] current use Visit Clinic [facility] [address] [place] [address] Social History Tobacco Use Types Packs/Day [...] you attend pentecostalism or Patient refused 2020 buddhism services? Do [...] encounter Progress Notes Wendi Lindsay RN - 01/08/2019 1:45 PM CDT ANTICOAGULATION FOLLOW-UP CLINIC VISIT Patient Name: Virgil Christine Date: 01/08/2019 Contact Type: Face to Face SUBJECTIVE: Patient [...] INR Protime Date Value Ref Range Status 01/08/2019 2.1 (A) 0.86 - 1.14 Final Chromogenic Factor [...] INR Location Clinic Anticoagulation Summary As of 01/08/2019 INR goal: 2.0-3.0 TTR: 67.0 % (1.1 y) INR used for dosin.1 (01/08/2019) Warfarin maintenance plan: 5 mg (5 mg x 1) every Mon, Wed, Fri; 7.5 mg (7.5 mg x 1) all other days Full warfarin instructions: 5 mg every Mon, Wed, Fri; 7.5 mg all other days Weekly warfarin total: 45 mg No change documented: Wendi Lindsay RN Plan last modified: Yeimi Daniel RN (02/12/2018) Next INR check: 02/19/2019 Target end date: Indications Long-term (current) use of anticoagulants [Z79.01] [Z79.01] Embolism and thrombosis (H) (Resolved) [I74.9] Anticoagulation Episode Summary INR check location: Preferred lab: Send INR reminders to: [facility] Comments: See the Encounter Report to view [...] Comme nts INR POINT OF CARE Routine 01/08/2019 exterminator termite current use o f Results for this anticoagulant therapy proced ure are in the results section . documented in this encounter Results (ABNORMAL) INR point of care (01/08/2019) athologist Signature INR Point of 2.1 (A) 0.86 - [facility] 1.14 [facility] Specimen (Source) Anatomical Location Collection Method / Collectio n Time Received Time / Laterality Volume 01/08/2019 Froylan Louise MD LAB - BLOOD ORDERABLES Performing Organization Address City/State/ZIP Code Phon e Number [facility] [address] [place] [address] documented in this encounter Visit Diagnoses Diagnosis exterminator termite current use of anticoagulant t herapy documented in this encounter Care Teams Umbrella Tipper Hand Relationship Specialty Start Date End Date Froylan Louise MD PCP - General Family Practice 02/22/14 Froylan Louise MD Assigned PCP 03/13/14 2 documented as of this encounter
--- OUTSIDE RECORDS SUMMARY | 2022-05-15 22:29 | XMS_ITS | Encounter Summary ---
:1955 Author Organization [place] Address [address] [place] [address] Care Team Providers Name Role Phone Froylan Louise MD Primary Care Provider Unavailable Froylan Louise MD Unavailable Unavailable Froylan Louise MD Unavailable Unavailable Encounter Details Date Type Department Care Team Description 08/20/2018 Anticoagulation Therapy [facility] Audrey [place] [address] [place] [address] Social History Tobacco Use Types [...] 4 or more times a w [place] 05/25/2021 alcohol? How many drinks containing alcohol [...] you attend alevism or Patient refused 2020 temple services? Do [...] encounter Progress Notes Wendi Lindsay RN - 08/20/2018 7:34 AM CST ANTICOAGULATION FOLLOW-UP CLINIC VISIT Patient Name: Virgil Christine Date: 08/20/2018 Contact Type: Telephone/ LVM SUBJECTIVE: Patient Findings Positives: Change in medications, Antibiotic use or infection Comments: Patient was in UC for a cough, prescribed Robitussin AC and Augmentin. Will have patient continue same dosing and recheck in a week OBJECTIVE INR Date Value Ref Range Status 08/19/2018 1.90 (H) 0.86 - 1.14 Final Comment: This test is intended for monitoring Coumadin therapy. Results are not accurate in patients with prolonged INR due to factor deficiency. ASSESSMENT / PLAN No question data found. Anticoagulation Summary As of 08/20/2018 INR goal: 2.0-3.0 TTR: 58.6 % (8.1 mo) INR used for dosin.90! (08/19/2018) Warfarin maintenance plan: 5 mg (5 mg x 1) every Mon, Wed, Fri; 7.5 mg (7.5 mg x 1) all other days Full warfarin instructions: 5 mg every Mon, Wed, Fri; 7.5 mg all other days Weekly warfarin total: 45 mg No change documented: Wendi Lindsay RN Plan last modified: Yeimi Daniel RN (02/12/2018) Next INR check: 08/26/2018 Target end date: Indications Long-term (current) use of anticoagulants [Z79.01] [Z79.01] Embolism and thrombosis (H) (Resolved) [I74.9] Anticoagulation Episode Summary INR check location: Preferred lab: Send INR reminders to: [facility] Comments: See the Encounter Report to view Anticoagulation Flowsheet and Dosing Calendar (Go to Encounters tabin chart review, and find the Anticoagulation Therapy Visit) Wendi Lindsay RN RVENTIONAL SALE CONSULTANT documented in this encounter Plan of Treatment Upcoming Encounters Date Type Specialty Care Team Description 05/20/2022 Lab Lab documented as of this encounter Visit Diagnoses Not on filedocumented in this encounter Care Teams Repairer Finished Metal Relationship Specialty Start Date End Date Froylan Louise MD PCP - General Family Practice 02/22/14 Froylan Louise MD PCP - Assigned PCP 03/13/14 08/25/18 Froylan Louise MD Assigned PCP 03/13/14 2 documented as of this encounter
--- OUTSIDE RECORDS SUMMARY | 2022-05-15 22:29 | XMS_ITS | Encounter Summary ---
:1955 Author Organization [place] Address [address] [place] [address] Care Team Providers Name Role Phone Froylan Louise MD Primary Care Provider Unavailable Froylan Louise MD Unavailable Unavailable Froylan Louise MD Unavailable Unavailable Reason for Visit Reason Onset Date Comments Patient/info Update 08/18/2018 appointment Encounter Details Date Type Department Care Team Description 08/18/2018 Telephone [facility] Froylan Louise Pati ent/info Update [facility] Chhaya VILLASEÑOR (appointment) [address] [place] [address] Social History Tobacco Use Types [...] you attend rastafarian or Patient refused 2020 buddhism services? Do [...] this encounter Miscellaneous Notes Telephone Encounter - Irma Dunaway - 08/18/2018 7:48 AM CST Patient calling this morning wanting an appointment with PCP. Patient informed he is currently full and he can be seen by UC or at another [facility]. Patient declined. Irma Dunaway Sewing Machine Operator Paper Bags OR C SOFTWARE ENGINEER documented in this encounter Plan of Treatment Upcoming Encounters Date Type Specialty Care Team Description 05/20/2022 Lab Lab documented as of this encounter Visit Diagnoses Not on filedocumented in this encounter Care Teams Title Abstractor Relationship Specialty Start Date End Date Froylan Louise MD PCP - General Family Practice 02/22/14 Froylan Louise MD PCP - Assigned PCP 03/13/14 08/25/18 Froylan Louise MD Assigned PCP 03/13/14 2 documented as of this encounter
--- OUTSIDE RECORDS SUMMARY | 2022-05-15 22:29 | XMS_ITS | Encounter Summary ---
:1955 Author Organization [place] Address [address] [place] [address] Care Team Providers Name Role Phone Froylan Louise MD Primary Care Provider Unavailable Froylan Louise MD Unavailable Unavailable Encounter Details Date Type Department Care Team Description 08/27/2018 Anticoagulation Therapy [facility] Elevated INR (Primary Dx); Visit Clinic [place] terminal make up operator current use of ant icoagulant therapy [address] [place] [address] Social History Tobacco Use Types [...] containing 4 or more times a w [place] 05/25/2021 alcohol? How many drinks containing alcohol [...] you attend buddhist or Patient refused 2020 presybeterian services? Do [...] Progress Notes Page, Esthela Conrad RN - 08/27/2018 3:45 PM CST ANTICOAGULATION FOLLOW-UP CLINIC VISIT Patient Name: Virgil Christine Date: 08/27/2018 Contact Type: Face to Face SUBJECTIVE: Patient Findings Positives: No Problem Findings, Unexplained INR or factor level change OBJECTIVE INR Protime Date Value Ref Range Status 08/27/2018 3.6 (A) 0.86 - 1.14 Final ASSESSMENT / PLAN Elevated INR for unknown reason, will check factor X and f/u with pt via phone call tomorrow. Pt signed paperwork for home monitoring and this was faxed. . Anticoagulation Summary As of 08/27/2018 INR goal: 2.0-3.0 TTR: 58.6 % (8.3 mo) INR used for dosin.6! (08/27/2018) Warfarin maintenance plan: 5 mg (5 mg x 1) every Mon, Wed, Fri; 7.5 mg (7.5 mg x 1) all other days Full warfarin instructions: 5 mg every Mon, Wed, Fri; 7.5 mg all other days Weekly warfarin total: 45 mg Plan last modified: Yeimi Daniel RN (02/12/2018) Next INR check: 09/03/2018 Target end date: Indications Long-term (current) use of anticoagulants [Z79.01] [Z79.01] Embolism and thrombosis (H) (Resolved) [I74.9] Anticoagulation Episode Summary INR check location: Preferred lab: Send INR reminders to: [facility] Comments: See the Encounter Report to view Anticoagulation Flowsheet and Dosing Calendar (Go to Encounters tabin chart review, and find the Anticoagulation Therapy Visit) Delete lomeli to remove if not charging [id number] Esthela Corea RN MOTIVE PARTS CLERK Esthela Corea RN - 08/27/2018 3:45 PM CST LM for call back - Factor X is back and pt is therapeutic at 34% Spoke with george Fung PharmD She suggest checking INR and CF 10 for the next 6-8 test to see if there is correlation as pt does have antiphospholipid issues. If this does correlate pt could move to testing with just CF 10 and checking every 6 weeks. Another possibility would be checking by venous draw as pt may have antibodies what are affecting INR machine. Again if pt does venous draw INR's could go to testing every 4-6 weeks. Home testing has been started for pt but this may not be viable option if going to have reading thatare off due to antiphospholipid syndromes. Esthela Corea RN MOTIVE PARTS CLERK Esthela Corea RN - 08/27/2018 3:45 PM CST Pt notified - Pt expressed understanding and acceptance of the plan. Pt had no further questions at this time. Advised can call back to clinic at any time with concerns. Esthela Corea RN MOTIVE PARTS CLERK documented in this encounter Plan of Treatment Upcoming Encounters Date Type Specialty Care Team Description 05/20/2022 Lab Lab documented as of this encounter Procedures Procedure Name Priority Date/Time Associated Diagnosis Comme nts FACTOR 10 Routine 08/27/2018 3:47 PM Elevated INR Results for this CHROMOGENIC AUTOMOTIVE PARTS CLERK half-way current use proced ure are in of anticoagulant the results therapy section. INR POINT OF CARE Routine 08/27/2018 Elevated INR Results for this half-way current use proced ure are in of anticoagulant the results therapy section. documented in this encounter Results (ABNORMAL) Factor 10 chromogenic (08/27/2018 3:47 PM AUTOMOTIVE PARTS CLERK) Analysis Performed At [facility] logis Time Signature Chromogenic 34 (L) 70 - 130 % 08/28/2018 [facility] Factor 10 8:59 AM AUTOMOTIVE PARTS CLERK [facility] Comment: Therapeutic Range: ??A Chromogenic Facto r 10 level of approximately 20-40% inversely correlates with an INR of 2-3 for patients receiving Warfarin. Chromogenic Factor 10 levels below 20% i ndicate an INR greater than 3 and levels above 40% indicate an INR less th an 2. Specimen Anatomical Collection Method Collection Time Receive d Time (Source) Location / / Volume Laterality Blood specimen 08/27/2018 3:47 PM 019 3:48 (specimen) AUTOMOTIVE PARTS CLERK PM AUTOMOTIVE PARTS CLERK Froylan Louise MD LAB - BLOOD ORDERABLES Performing Organization Address City/State/ZIP Code Phon e Number [facility] [address] [place], [place] [id number] [place] [address] (ABNORMAL) INR point of care (08/27/2018) P athologist Signature INR Point of 3.6 (A) 0.86 - [facility] 1.14 [facility] Specimen (Source) Anatomical Location Collection Method / Collectio n Time Received Time / Laterality Volume 08/27/2018 Froylan Louise MD LAB - BLOOD ORDERABLES Performing Organization Address City/State/ZIP Code Phon e Number [facility] [address] [place] [address] documented in this encounter Visit Diagnoses Diagnosis Elevated INR - Primary Abnormal coagulation profile terminal make up operator current use of anticoagulant t herapy documented in this encounter Care Teams Journeyman Electrician Pv Installer Relationship Specialty Start Date End Date Froylan Louise MD PCP - General Family Practice 02/22/14 Froylan Louise MD Assigned PCP 03/13/14 2 documented as of this encounter
--- OUTSIDE RECORDS SUMMARY | 2022-05-15 22:29 | XMS_ITS | Encounter Summary ---
:1955 Author Organization [place] Address [address] [place] [address] Care Team Providers Name Role Phone Froylan Louise MD Primary Care Provider Unavailable Froylan Louise MD Unavailable Unavailable Froylan Louise MD Unavailable Unavailable Reason for Visit Reason Onset Date Comments Nurse Advice Line 08/19/2018 Encounter Details Date Type Department Care Team Description 08/19/2018 Telephone [facility] Froylan Louise Ra, MD Nurse Advice Line [address] [phone] Social History Tobacco Use [...] you attend latter-day or Patient refused 2020 zoroastrian services? Do [...] Telephone Encounter - Wendi Lindsay RN - 08/19/2018 2:42 PM CST Pt calling regarding cough that he has called about before. He can't breath lying down, productive green mucous cough, body aches, fatigue and not feeling well. Advised he be seen as previously indicated to assess and diagnose illness and advised he could have pneumonia which needs to be assessed. No openings in [place] so recommended the . Wendi Lindsay RN, BSN RER PIPELINE documented in this encounter Plan of Treatment Upcoming Encounters Date Type Specialty Care Team Description 05/20/2022 Lab Lab documented as of this encounter Visit Diagnoses Not on filedocumented in this encounter Care Teams Software Support Analyst Relationship Specialty Start Date End Date Froylan Louise MD PCP - General Family Practice 02/22/14 Froylan Louise MD PCP - Assigned PCP 03/13/14 08/25/18 Froylan Louise MD Assigned PCP 03/13/14 2 documented as of this encounter
--- OUTSIDE RECORDS SUMMARY | 2022-05-15 22:29 | XMS_ITS | Encounter Summary ---
:1955 Author Organization [place] Address [address] [place] [address] Care Team Providers Name Role Phone Froylan Louise MD Primary Care Provider Unavailable Froylan Louise MD Unavailable Unavailable Reason for Visit Reason Onset Date Comments Refill Request 10/15/2018 enoxaparin (LOVENOX) 40 MG/0.4ML syringe Encounter Details Date Type Department Care Team Description 10/15/2018 [facility] Froylan Louise Ra, Refill Request Chhaya VILLASEÑOR (enoxaparin (LOVENOX) [address] MG/0.4ML syringe ) [place] [address] Social History Tobacco Use [...] you attend cheondoism or Patient refused 2020 caodaism services? Do [...] encounter Miscellaneous Notes Telephone Encounter - Wendi Lindsay, RN - 10/15/2018 9:50 AM CDT Spoke with pt and he did not request this and told the pharmacy last week Called [facility] to inform them to take this off auto-refill Wendi Lindsay RN, BSN Telephone Encounter - Carlos Alberto Black - 10/15/2018 9:40 AM CDT enoxaparin (LOVENOX) 40 MG/0.4ML syringe Last Written Prescription Date: 05/26/2018 Last Fill Quantity: 4ml, # refills: 0 Last Office Visit: 08/10/2018 Future Office visit: Routing refill request to provider for review/approval because: Drug not on the [facility], [facility] or [facility] refill protocol or controlled substance Carlos Alberto [...] (H) documented in this encounter Care Teams Field Cane Scale Clerk Relationship Specialty Start Date End Date Froylan Louise MD PCP - General Family Practice 02/22/14 Froylan Louise MD Assigned PCP 03/13/14 2 documented as of this encounter
--- OUTSIDE RECORDS SUMMARY | 2022-05-15 22:29 | XMS_ITS | Encounter Summary ---
:1955 Author Organization [place] Address [address] [place] [address] Care Team Providers Name Role Phone Froylan Louise MD Primary Care Provider Unavailable Froylan Louise MD Unavailable Unavailable Encounter Details Date Type Department Care Team Description 12/21/2018 Travel Social History Tobacco Use Types Packs/Day Years Used Date Smoking Tobacco: Former Cigarettes 2 25 Quit : 08/04/2006 Smokeless Tobacco: Never Comments: 2005 Alcohol Use Standard Drinks/Week Comments Yes 0 (1 standard drink = 0.6 oz pure alcoho l) 4 BEERS A WEEK Alcohol Habits Answer Date Recorded How often do you have a drink containing 4 or more times a w [place] 05/25/2021 alcohol? How many drinks containing alcohol [...] you attend christian or Patient refused 2020 muslim services? Do [...] filedocumented in this encounter Care Teams Engineering Faculty Relationship Specialty Start Date End Date Froylan Louise MD PCP - General Family Practice 02/22/14 Froylan Louise MD Assigned PCP 03/13/14 2 documented as of this encounter
--- OUTSIDE RECORDS SUMMARY | 2022-05-15 22:29 | XMS_ITS | Encounter Summary ---
:1955 Author Organization [place] Address [address] [place] [address] Care Team Providers Name Role Phone Froylan Louise MD Primary Care Provider Unavailable Froylan Louise MD Unavailable Unavailable Reason for Visit Reason Comments Medication Refill furosemide (LASIX) 20 MG tab let Encounter Details Date Type Department Care Team Description 08/30/2018 Refill [facility] Froylan Louise Ra, Medication Refill Chhaya VILLASEÑOR (furosemide (LASIX) [address] MG tablet) [place] [address] Social History Tobacco Use Types Packs/Day Years Used Date Smoking Tobacco: Former Cigarettes 2 25 Quit : 08/04/2006 Smokeless Tobacco: Never Comments: 2004 Alcohol Use Standard Drinks/Week Comments Yes 0 (1 standard drink = 0.6 oz pure alcoho l) 4 BEERS A WEEK Alcohol Habits Answer Date Recorded How often do you have a drink containing 4 or more times a w [place] 05/25/2021 alcohol? How many drinks containing alcohol [...] you attend amish or Patient refused 2020 uatsdin services? Do [...] Telephone Encounter - Wendi Lindsay RN - 08/31/2018 10:09 AM CDT Routing refill request to provider for review/approval because: Labs out of range: BP A break in medication Wendi Lindsay RN, BSN Telephone Encounter - Arleen Vidal ORE CRUSHER - 08/30/2018 2:49 PM CDT Requested Prescriptions Pending Prescriptions Disp Refills ??? furosemide (LASIX) 20 MG tablet [Pharmacy Med Name: FUROSEMIDE 20 MG TABLET] Last Written Prescription Date: 06/13/2017 Last Fill Quantity: 90, # refills: 3 Last office visit: 08/10/2018 with prescribing provider: 08/10/2018 Future Office Visit: 90 tablet 2 Sig: TAKE 1/2 -1 TAB BY MOUTH DAILY NEEDED FOR SWELLING Diuretics (Including Combos) Protocol Failed - 08/30/2018 12:32 AM Failed - Blood pressure under 140/90 in past 12 months BP Readings from Last 3 Encounters: 08/19/18 140/68 08/10/18 144/72 06/12/18 148/88 Passed - Recent (12 mo) or future [...] on med list Passed - Patient is age 18 or older Passed - Normal serum creatinine on file in past 12 months Recent Labs Lab Test 06/05/18 1553 CR 0.81 Passed - Normal serum potassium on file in past 12 months Recent Labs Lab Test 06/05/18 1553 POTASSIUM 4.0 Passed - Normal serum sodium on file in past 12 months Recent Labs Lab Test 06/05/18 1553 NA 139 documented in this encounter Plan of Treatment Upcoming Encounters Date Type Specialty Care Team Description 05/20/2022 Lab Lab documented as of this encounter Visit Diagnoses Diagnosis 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
--- OUTSIDE RECORDS SUMMARY | 2022-05-15 22:29 | XMS_ITS | Encounter Summary ---
:1955 Author Organization [place] Address [address] [place] [address] Care Team Providers Name Role Phone Froylan Louise MD Primary Care Provider Unavailable Froylan Louise MD Unavailable Unavailable Encounter Details Date Type Department Care Team Description 10/16/2018 Anticoagulation Therapy Visit [address] [address] Social History Tobacco Use Types [...] containing 4 or more times a w [place] 05/25/2021 alcohol? How many drinks containing alcohol [...] you attend latter-day or Patient refused 2020 buddhism services? Do [...] encounter Progress Notes Wendi Lindsay RN - 10/16/2018 4:00 PM CDT ANTICOAGULATION FOLLOW-UP CLINIC VISIT Patient Name: Virgil Christine Date: 10/16/2018 Contact Type: Face to Face SUBJECTIVE: Patient Findings Comments: The patient was assessed for diet, medication, and activity level changes, missed or extra doses, bruising or bleeding, with no problem findings. OBJECTIVE INR Protime Date Value Ref Range Status 10/16/2018 2.3 (A) 0.86 - 1.14 Final Chromogenic Factor [...] INR Location Clinic Anticoagulation Summary As of 10/16/2018 INR goal: 2.0-3.0 TTR: 57.8 % (10 mo) INR used for dosin.3 (10/16/2018) Warfarin maintenance plan: 5 mg (5 mg x 1) every Mon, Wed, Fri; 7.5 mg (7.5 mg x 1) all other days Full warfarin instructions: 5 mg every Mon, Wed, Fri; 7.5 mg all other days Weekly warfarin total: 45 mg No change documented: Wendi Lindsay RN Plan last modified: Yeimi Daniel RN (02/12/2018) Next INR check: 11/27/2018 Target end date: Indications Long-term (current) use [...] Comme nts INR POINT OF CARE Routine 10/16/2018 Results fo r this procedure are in the resu lts section. documented in this encounter Results (ABNORMAL) INR point of care (10/16/2018) P athologist Signature INR Point of 2.3 (A) 0.86 - [facility] 1.14 [facility] Specimen (Source) Anatomical Location Collection Method / Collectio n Time Received Time / Laterality Volume 10/16/2018 Froylan Louise MD LAB - BLOOD ORDERABLES Performing Organization Address City/State/ZIP Code Phon e Number [facility] [id number] [place] [address] documented in this encounter Visit Diagnoses Not on filedocumented in this encounter Care Teams Profile Grinder Relationship Specialty Start Date End Date Froylan Louise MD PCP - General Family Practice 02/22/14 Froylan Louise MD Assigned PCP 03/13/14 2 documented as of this encounter
--- OUTSIDE RECORDS SUMMARY | 2022-05-15 22:29 | XMS_ITS | Encounter Summary ---
:1955 Author Organization [place] Address [address] [place] [address] Care Team Providers Name Role Phone Froylan Louise MD Primary Care Provider Unavailable Froylan Louise MD Unavailable Unavailable Encounter Details Date Type Department Care Team Description 09/18/2018 Anticoagulation Therapy Visit [address] [phone] Social History Tobacco Use Types [...] containing 4 or more times a w [place] 05/25/2021 alcohol? How many drinks containing [...] you attend religion or Patient refused 2020 quaker services? Do [...] Progress Notes Page, Esthela Conrad RN - 09/18/2018 3:00 PM CDT ANTICOAGULATION FOLLOW-UP CLINIC VISIT Patient Name: Virgil Christine Date: 09/18/2018 Contact Type: Face to Face SUBJECTIVE: Patient Findings Comments: No concerns - Training for home monitoring today OBJECTIVE INR Protime Date Value Ref Range Status 08/27/2018 3.6 (A) 0.86 - 1.14 Final Chromogenic Factor [...] INR less than 2. ASSESSMENT / PLAN Pt will be doing home monitoring going forward. He will recheck with meter in clinic in 6 months Anticoagulation Summary As of 09/18/2018 INR goal: 2.0-3.0 TTR: 58.6 % (8.3 mo) INR used for dosing: Warfarin maintenance plan: 5 mg (5 mg x 1) every Mon, Wed, Fri; 7.5 mg (7.5 mg x 1) all other days Full warfarin instructions: 5 mg every Mon, Wed, Fri; 7.5 mg all other days Weekly warfarin total: 45 mg No change documented: Esthela Corea, RN Plan last modified: Yeiim Daniel RN (02/12/2018) Next INR check: 10/16/2018 Target end date: Indications Long-term (current) use [...] on filedocumented in this encounter Care Teams Cash Applications Specialist Relationship Specialty Start Date End Date Froylan Louise MD PCP - General Family Practice 02/22/14 Froylan Louise MD Assigned PCP 03/13/14 2 documented as of this encounter
--- OUTSIDE RECORDS SUMMARY | 2022-05-15 22:29 | XMS_ITS | Encounter Summary ---
:1955 Author Organization [place] Address [address] [place] [address] Care Team Providers Name Role Phone Froylan Louise MD Primary Care Provider Unavailable Froylan Louise MD Unavailable Unavailable Reason for Visit Reason Onset Date Comments INR Followup 09/21/2018 home monitoring Encounter Details Date Type Department Care Team Description 09/21/2018 Telephone [facility] Froylan Louise, INR Followup (home Clinic Chhaya VILLASEÑOR monitoring ) [address] [place] [address] Social History Tobacco Use Types [...] you attend cheondoism or Patient refused 2020 temple services? Do [...] Encounter - Nahomy, Esthela Conrad RN - 09/21/2018 12:41 PM CDT Call from [employer] about home monitoring - It is not an option for pt to monitor 1 X month he would have to check 2-4 X month. This can not be altered even with MD recommendation . Spoke with pt he does not wish to check that often and will return meter. He will contact [employer] to find out how he needs to return and send back to them. He will f/u for INR check in 6 weeks. Esthela Corea RN documented in this encounter Plan of Treatment Upcoming Encounters Date Type Specialty Care Team Description 05/20/2022 Lab Lab documented as of this encounter Visit Diagnoses Not on filedocumented in this encounter Care Teams Developmental Electronics Assembler Relationship Specialty Start Date End Date Froylan Louise MD PCP - General Family Practice 02/22/14 Froylan Louise MD Assigned PCP 03/13/14 2 documented as of this encounter
--- OUTSIDE RECORDS SUMMARY | 2022-05-15 22:29 | XMS_ITS | Encounter Summary ---
:1955 Author Organization [place] Address [address] [place] [address] Care Team Providers Name Role Phone Froylan Louise MD Primary Care Provider Unavailable Froylan Louise MD Unavailable Unavailable Encounter Details Date Type Department Care Team Description 08/27/2018 Travel Social History Tobacco Use Types Packs/Day Years Used Date Smoking Tobacco: Former Cigarettes 2 25 Quit : 08/04/2006 Smokeless Tobacco: Never Comments: 2005 Alcohol Use Standard Drinks/Week Comments Yes 0 (1 standard drink = 0.6 oz pure alcoho l) 4 BEERS A WEEK Alcohol Habits Answer Date Recorded How often do you have a drink containing 4 or more times a w [place] 05/25/2021 alcohol? How many drinks containing alcohol [...] you attend nondenominational or Patient refused 2020 confucianism services? Do [...] on filedocumented in this encounter Care Teams Repossession Agent Relationship Specialty Start Date End Date Froylan Louise MD PCP - General Family Practice 02/22/14 Froylan Louise MD Assigned PCP 03/13/14 2 documented as of this encounter
--- OUTSIDE RECORDS SUMMARY | 2022-05-15 22:29 | XMS_ITS | Encounter Summary ---
:1955 Author Organization [place] Address [address] [place] [address] Care Team Providers Name Role Phone Froylan Louise MD Primary Care Provider Unavailable Froylan Louise MD Unavailable Unavailable Reason for Visit Reason Comments Medication Refill Encounter Details Date Type Department Care Team Description 12/22/2018 Refill [facility] Froylan Louise Ra, MD Medication Refill [address] [address] Social History Tobacco Use [...] you attend lutheran or Patient refused 2020 mormonism services? Do [...] Telephone Encounter - Froylan Louise MD - 12/23/2018 10:21 AM CDT Refilled. Telephone Encounter - Wendi Lindsay RN - 12/23/2018 9:37 AM CDT RX monitoring program ([place]) reviewed: COMPENSATION BUSINESS PARTNER reviewed- no concerns [place]NPMP profile: [email or web address] Telephone Encounter - Thais Clifton - 12/22/2018 8:42 PM CDT Controlled Substance Refill Request for zolpidem ER (AMBIEN CR) 12.5 MG CR tablet Problem List Complete: No PROVIDER TO CONSIDER COMPLETION OF PROBLEM LIST AND OVERVIEW/CONTROLLED SUBSTANCE AGREEMENT Last Written Prescription Date: 10/09/2018 Last Fill Quantity: 30 tablet, # refills: 0 THE MOST RECENT OFFICE VISIT MUST BE WITHIN THE PAST 3 MONTHS. AT LEAST ONE FACE TO FACE VISIT MUST OCCUR EVERY 6 MONTHS. ADDITIONAL VISITS CAN BE VIRTUAL. (THIS STATEMENT SHOULD BE DELETED.) Last Office Visit with [facility] primary care provider: 08/10/2018Dani Future Office visit: Next 5 appointments (look out 90 days) Dec 29, 2018 2:40 PM CDT SHORT with Froylan Louise MD [facility] [id number] [place] [phone] Controlled substance agreement: Encounter-Level CSA: There are no encounter-level csa. Patient-Level CSA: There are no patient-level csa. Last Urine Drug Screen: No results found for: CDAUT, No results found for: COMDAT, No results found for: THC13, PCP13, COC13, MAMP13, OPI13, AMP13, BZO13, TCA13, MTD13, BAR13, OXY13, PPX13, BUP13 Processing: Staff will hand deliver Rx to on-site pharmacy [email or web address] COMPENSATION BUSINESS PARTNER checked in past 3 months? No, route to RN documented in this encounter Plan of Treatment Upcoming Encounters Date Type Specialty Care Team Description 05/20/2022 Lab Lab documented as of this encounter Visit Diagnoses Diagnosis Insomnia, unspecified type documented in this encounter Care Teams Counter Pocket Trimmer Relationship Specialty Start Date End Date Froylan Louise MD PCP - General Family Practice 02/22/14 Froylan Louise MD Assigned PCP 03/13/14 2 documented as of this encounter
--- OUTSIDE RECORDS SUMMARY | 2022-05-15 22:30 | XMS_ITS | Encounter Summary ---
:1955 Author Organization [place] Address [address] [place] [address] Care Team Providers Name Role Phone Froylan Louise MD Primary Care Provider Unavailable Froylan Louise MD Unavailable Unavailable Froylan Louise MD Unavailable Unavailable Encounter Details Date Type Department Care Team Description 08/10/2018 Orders Only [facility] onic deep vein thrombosis (DVT) of lower extremity, unspecified laterality, unspecified vein (H); [facility] longterm current use of ant icoagulant therapy [address] [place] [address] Social History Tobacco Use [...] you attend scientologist or Patient refused 2020 mandaen services? Do [...] Date/Time Associated Diagnosis Comme nts INR Routine 08/10/2018 4:03 PM Chronic deep vein Resu lts for this RENEWABLE ENERGY TECHNICIAN thrombosis (DVT) of procedur e are in lower extremity, the results unspecified laterality, sect ion. 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 current use of anticoagulant therapy documented in this encounter Results (ABNORMAL) INR (08/10/2018 4:03 PM RENEWABLE ENERGY TECHNICIAN) P athologist Signature INR 2.10 (H) 0.86 - 1.14 08/10/2018 [place] 4:10 PM [facility] Specimen Anatomical Collection Method Collection Time Receive d Time (Source) Location / / Volume Laterality Blood specimen 08/10/2018 4:03 PM 019 4:04 (specimen) RENEWABLE ENERGY TECHNICIAN PM RENEWABLE ENERGY TECHNICIAN Froylan Louise MD LAB - BLOOD ORDERABLES Performing Organization Address City/State/ZIP Code Phon e Number [facility] [phone] [place] [address] documented in this encounter Visit Diagnoses Diagnosis Chronic deep vein thrombosis (DVT) of lo wer extremity, unspecified laterality, unspecified vein (H) longterm current use of anticoagulant t herapy documented in this encounter Care Teams Access Services Representative Relationship Specialty Start Date End Date Froylan Louise MD PCP - General Family Practice 02/22/14 Froylan Louise MD PCP - Assigned PCP 03/13/14 08/25/18 Froylan Louise MD Assigned PCP 03/13/14 2 documented as of this encounter
--- OUTSIDE RECORDS SUMMARY | 2022-05-15 22:30 | XMS_ITS | Encounter Summary ---
:1955 Author Organization [place] Address [address] [place] [address] Care Team Providers Name Role Phone Froylan Louise MD Primary Care Provider Unavailable Froylan Louise MD Unavailable Unavailable Froylan Louise MD Unavailable Unavailable Reason for Visit Reason Onset Date Comments Refill Request 08/04/2018 zolpidem ER (AMBIEN CR) 12.5 MG CR tablet Encounter Details Date Type Department Care Team Description 08/04/2018 Refill [facility] Froylan Louise Ra, Refill Request (zolpidem Chhaya VILLASEÑOR ER (AMBIEN CR) [address] CR tablet) [place] [address] Social History Tobacco Use [...] containing 4 or more times a w [place] 05/25/2021 alcohol? How many drinks containing alcohol [...] attend jehovah's witness or Patient refused 2020 mosque services? Do [...] Telephone Encounter - Wendi Lindsay RN - 08/05/2018 8:53 AM CST RX monitoring program ([place]MP) reviewed: LIFE CARE PLANNER reviewed- no concerns MNPMP profile: [email or web address] TITUTIONAL LAW PROFESSOR Telephone Encounter - Thais Clifton - 08/04/2018 7:35 PM CST Controlled Substance Refill Request for zolpidem ER (AMBIEN CR) 12.5 MG CR tablet Problem List Complete: No PROVIDER TO CONSIDER COMPLETION OF PROBLEM LIST AND OVERVIEW/CONTROLLED SUBSTANCE AGREEMENT Last Written Prescription Date: 05/05/2018 Last Fill Quantity: 30 tablet, # refills: 0 THE MOST RECENT OFFICE VISIT MUST BE WITHIN THE PAST 3 MONTHS. AT LEAST ONE FACE TO FACE VISIT MUST OCCUR EVERY 6 MONTHS. ADDITIONAL VISITS CAN BE VIRTUAL. (THIS STATEMENT SHOULD BE DELETED.) Last Office Visit with [facility] primary care provider: 06/05/2018Dani Future Office visit: Next 5 appointments (look out 90 days) Aug 10, 2018 4:00 PM CONSTITUTIONAL LAW PROFESSOR SHORT with [facility] [id number] [place] [phone] Controlled substance agreement: Encounter-Level CSA: There are no encounter-level csa. Patient-Level CSA: There are no patient-level csa. Last Urine Drug Screen: No results found for: CDAUT, No results found for: COMDAT, No results found for: THC13, PCP13, COC13, MAMP13, OPI13, AMP13, BZO13, TCA13, MTD13, BAR13, OXY13, PPX13, BUP13 Processing: Staff will hand deliver Rx to on-site pharmacy [email or web address] LIFE CARE PLANNER checked in past 3 months? No, route to RN TITUTIONAL LAW PROFESSOR documented in this encounter Plan of Treatment Upcoming Encounters Date Type Specialty Care Team Description 05/20/2022 Lab Lab documented as of this encounter Visit Diagnoses Diagnosis Insomnia, unspecified type documented in this encounter Care Teams Driver Education Instructor Relationship Specialty Start Date End Date Froylan Louise MD PCP - General Family Practice 02/22/14 Froylan Louise MD PCP - Assigned PCP 03/13/14 08/25/18 Froylan Louise MD Assigned PCP 03/13/14 2 documented as of this encounter
--- OUTSIDE RECORDS SUMMARY | 2022-05-15 22:30 | XMS_ITS | Encounter Summary ---
:1955 Author Organization [place] Address [address] [place] [address] Care Team Providers Name Role Phone Froylan Louise MD Primary Care Provider Unavailable Froylan Louise MD Unavailable Unavailable Froylan Louise MD Unavailable Unavailable Encounter Details Date Type Department Care Team Description 08/11/2018 Anticoagulation Therapy [facility] Audrey [place] [address] [place] [address] Social History Tobacco Use Types [...] you attend orthodox or Patient refused 2020 zoroastrian services? Do [...] Progress Notes Page, Esthela Conrad RN - 08/11/2018 7:41 AM CST ANTICOAGULATION FOLLOW-UP CLINIC VISIT Patient Name: Virgil Christine Date: 08/11/2018 Contact Type: Telephone/ with pt SUBJECTIVE: Patient Findings Positives: No Problem Findings OBJECTIVE INR Date Value Ref Range Status 08/10/2018 2.10 (H) 0.86 - 1.14 Final ASSESSMENT / PLAN No question data found. Anticoagulation Summary As of 08/11/2018 INR goal: 2.0-3.0 TTR: 58.9 % (7.8 mo) INR used for dosing: No new INR was available at the time of this encounter. Warfarin maintenance plan: 5 mg (5 mg x 1) every Mon, Wed, Fri; 7.5 mg (7.5 mg x 1) all other days Full warfarin instructions: 5 mg every Mon, Wed, Fri; 7.5 mg all other days Weekly warfarin total: 45 mg No change documented: Esthela Corea, RN Plan last modified: Yeimi Daniel RN (02/12/2018) Next INR check: Target end date: Indications Long-term (current) use of anticoagulants [Z79.01] [Z79.01] Embolism and thrombosis (H) (Resolved) [I74.9] Anticoagulation Episode Summary INR check location: Preferred lab: Send INR reminders to: [facility] TRIAGE Comments: See the Encounter Report to view Anticoagulation Flowsheet and Dosing Calendar (Go to Encounters tabin chart review, and find the Anticoagulation Therapy Visit) Esthela Corea RN EMATICIAN RESEARCH documented in this encounter Plan of Treatment Upcoming Encounters Date Type Specialty Care Team Description 05/20/2022 Lab Lab documented as of this encounter Visit Diagnoses Not on filedocumented in this encounter Care Teams Warehouse Analyst Relationship Specialty Start Date End Date Froylan Louise MD PCP - General Family Practice 02/22/14 Froylan Louise MD PCP - Assigned PCP 03/13/14 08/25/18 Froylan Louise MD Assigned PCP 03/13/14 2 documented as of this encounter
--- OUTSIDE RECORDS SUMMARY | 2022-05-15 22:30 | XMS_ITS | Encounter Summary ---
:1955 Author Organization [place] Address [address] [place] [address]. [place] [address] Care Team Providers Name Role Phone Froylan Louise MD Primary Care Provider Unavailable Froylan Louise MD Unavailable Unavailable Froylan Louise MD Unavailable Unavailable Reason for Visit Auth/Cert Specialty Diagnoses / Procedures Referred By Contact Refer red To Contact Surgery Diagnoses Fistula Rh Periop Services Procedures PROCEDURE PLACEHOLDER COLO-RECTAL [address], [place] [address] Phone: Fax: Referral ID Status Reason Start Date Expiration Date Visits Requ ested Visits Authorized [id number] 1 1 Encounter Details Date Type Department Care Team Description 06/12/2018 Anesthesia Event [facility] Morgan Waggoner PeriOp Services MD Williams [address] [place] [address] ANESTHESIA [id number] [place], [place] [address] (Wo rk) Anesthesia Record Procedure Summary Procedure Name Responsible Anesthesia Start Anesthesia Stop Anesthesiologist Time Time Exam under Morgan Waggoner MD 06/12/18 0847 06/12/18 0956 anesthesia, pouchoscopy, Incision and drainage of abscess. POUCHOSCOPY (Anus) Events Date Time Event Comment 06/12/2018 0719 0847 An Start 0847 An Start Data 0856 An Induction 0857 MD Present 0858 MD Present 0900 An Intubation 0900 MD Present 0927 Present 0955 an stop data 0956 An Stop Electronically s igned by Ramy Strange on June 12 8 9:56 AM Name Total midazolam 1mg/mL 2 mg fentaNYL (SUBLIMAZE) injection 100 mcg propofol (DIPRIVAN) injection 10 mg/mL vial 200 mg lidocaine 1% 30 mg glycopyrrolate 0.2 mg/mL 0.2 mg neostigmine 1mg/mL 3 mg rocuronium 10mg/mL 35 mg dexamethasone 4 mg/mL 4 mg ondansetron 2 mg/mL 4 mg lactated ringers infusion 1,100 mL Agents Name NO HELIOX O2 N2O Air Exp Sevoflurane Exp Isoflurane Exp Desflurane Exp N2O Ins Sevoflurane Ins Isoflurane Ins Desflurane O2 Auxiliary Blood No blood administrations on file. Lines, Drains, and Airways Type Details Placement Removal Incision/Surgical Site 08/20/13; 0830; Right; 08/20/13 0830 by Adolph Cheng, CINDY Incision/Surgical Site 06/12/18; 0941; 06/12/18 0941 by Bilateral; Rectum Gemini Mckeon APRN GLUE BONE DRIER Wound 06/12/18; 0945; 06/12/18 0945 by Anterior, Bilateral; Arminda Randle RN No Peripheral IV 08/20/13; 0658; 18 G, 08/20/13 0658 by 12/25/20 1854 by 1 1/4 inch; Left, Adolph Haque Trac ie, RN Dorsal; Hand; Alcohol; MD Williams Injectable; Tolerated well Peripheral IV 06/12/18; 0718; 22 G; 06/12/18 0718 by 06/12/18 1141 by Right; Lower forearm Morgan Waggoner Kjellm an, Abbie, RN MD RETIRED ETT 06/12/18; 0900; Mask 06/12/18 0900 by 06/12/18 0 948 by Ventilation: Easy; Ramy Strange Ronald Ease of Intubation: IJEOMA Garcia CRNA, AP RN MUFF WINDER Easy; Airway Size: 8; Cuffed; Oral; Blade Type: Marilyn; Blade Size: 3; Place by: dr waggoner; Insertion Attempts: 2; Breath Sounds: Equal, clear and bilateral; End Tidal CO2: Present; Dentition: Intact; Grade View of Cords: 2 documented in this encounter Social History Tobacco [...] 4 or more times a w red devil 05/25/2021 alcohol? How many drinks containing alcohol [...] you attend baptism or Patient refused 2020 uatsdin services? Do [...] on file documented as of this encounter OR Notes Anesthesia Postprocedure Evaluation - Morgan Waggoner MD - 06/12/2018 11:32 AM CST Patient: Virgil Christine Procedure(s): Exam under anesthesia, pouchoscopy, Incision and drainage of abscess. POUCHOSCOPY Diagnosis:Fistula Diagnosis Additional Information: Fistula Anesthesia Type: General, ETT Note: Anesthesia Post Evaluation Patient location during evaluation: PACU Patient participation: Able to fully participate in evaluation Level of consciousness: awake Pain management: adequate Airway patency: patent Cardiovascular status: acceptable Respiratory status: acceptable Hydration status: acceptable PONV: controlled Anesthetic complications: None Last vitals: Vitals: 06/12/18 1020 06/12/18 1039 06/12/18 1058 BP: 132/81 136/71 (!) 152/98 Pulse: 57 Resp: (!) 7 Temp: 97.2 ??F (36.2 ??C) SpO2: 100% 100% 100% Electronically Signed By: Morgan Waggoner MD June 12, 2018 11:32 AM CH ENGINEER Anesthesia Preprocedure Evaluation - Morgan Waggoner MD - 06/12/2018 7:07 AM CST Anesthesia Pre-Procedure Evaluation Patient: Virgil Christine : 1955 Preoperative Diagnosis: Fistula Procedure(s): Exam under anesthesia POUCHOSCOPY Past Medical History: Diagnosis Date ??? Antiplatelet [...] COLOSTOMY pochoscopy ??? COLOSTOMY 06/20/2017 pouchoscopy ??? bindu filter ??? ORTHOPEDIC SURGERY ??? POUCHOSCOPY N/A 06/22/2014 Procedure: POUCHOSCOPY; Surgeon: Chase Suazo MD; Location: [facility] ??? POUCHOSCOPY N/A 06/20/2017 Procedure: POUCHOSCOPY; POUCHOSCOPY ; Surgeon: Chase Suazo MD; Location: [facility] ??? RESECTION ABDOMINAL PERINEAL Anesthesia Evaluation . Pt has had prior anesthetic. Type: General No history of anesthetic complications ROS/MED HX ENT/Pulmonary: (+)sleep apnea (mild), tobacco use, Past use Intermittent asthma mild COPD, doesn't use CPAP , . . (-) recent URI Neurologic: - neg neurologic ROS (-) seizures and CVA Cardiovascular: (+) hypertension----. Taking blood thinners : . . . :. . Previous cardiac testing date:results:date:results:ECG reviewed date:06/09 results:NSR date: results: (-) CAD, arrhythmias and valvular problems/murmurs METS/Exercise Tolerance: Hematologic: Comments: Lab Test 06/11/18 06/05/18 05/25/18 05/11/18 -- 01/05/18 -- 05/25/17 1553 -- 1615 -- 0810 WBC -- 6.3 -- -- -- 8.8 -- 7.5 HGB -- 14.0 -- -- -- 14.8 -- 14.6 MCV -- 88 -- -- -- 91 -- 93 PLT -- 196 -- -- -- 242 -- 213 INR 1.2* -- 3.0* 3.4* < > -- < > -- < > = values in this interval not displayed. Lab Test 06/05/18 01/05/18 05/25/17 1553 1615 0810 NA 139 142 140 POTASSIUM 4.0 4.3 4.5 CHLORIDE 110* 107 107 CO2 24 25 24 BUN 19 16 16 CR 0.81 0.88 0.91 ANIONGAP 5 10 9 DERREK 8.5 9.3 9.0 GLC 99 96 97 (+) History of blood clots pt is anticoagulated, - Musculoskeletal: (+) arthritis, , , - GI/Hepatic: (+) Other GI/Hepatic ulcerative colitis (-) GERD Renal/Genitourinary: - ROS Renal section negative Endo: (+) Obesity, . (-) Type I DM, Type II DM, thyroid disease and chronic steroid usage Psychiatric: - neg psychiatric ROS Infectious Disease: - neg infectious disease ROS Malignancy: - no malignancy Other: - neg other ROS Physical Exam Normal systems: cardiovascular, pulmonary and dental Airway Mallampati: III TM distance: >3 FB Neck ROM: full Dental Cardiovascular Rhythm and rate: regular and normal (-) no friction rub, no systolic click and no murmur Pulmonary breath sounds clear to auscultation(-) no rhonchi, no decreased breath sounds, no wheezes, no ralesand no stridor Lab Results Component Value Date WBC 6.3 06/05/2018 HGB 14.0 06/05/2018 HCT 43.4 06/05/2018 PLT 196 06/05/2018 CRP 60.0 (H) 06/05/2018 SED 16 01/05/2018 NA 139 06/05/2018 POTASSIUM 4.0 06/05/2018 CHLORIDE 110 (H) 06/05/2018 CO2 24 06/05/2018 BUN 19 06/05/2018 CR 0.81 06/05/2018 GLC 99 06/05/2018 DERREK 8.5 06/05/2018 ALBUMIN 3.4 06/05/2018 PROTTOTAL 7.5 06/05/2018 ALT 27 06/05/2018 AST 28 06/05/2018 ALKPHOS 83 06/05/2018 BILITOTAL 0.9 06/05/2018 PTT 40 (H) 01/05/2009 INR 1.2 (A) 06/11/2018 TSH 1.67 05/04/2015 T4 1.06 04/15/2007 Preop Vitals BP Readings from Last 3 Encounters: 06/05/18 128/78 05/27/18 145/89 03/23/18 130/80 Pulse Readings from Last 3 Encounters: 06/05/18 78 05/27/18 73 03/23/18 74 Resp Readings from Last 3 Encounters: 06/05/18 16 06/20/17 16 10/01/16 18 SpO2 Readings from Last 3 Encounters: 06/05/18 98% 05/27/18 98% 03/23/18 97% Temp Readings from Last 1 Encounters: 06/05/18 98.5 ??F (36.9 ??C) (Oral) Ht Readings from Last 1 Encounters: 06/05/18 1.791 m (5' 10.5) Wt Readings from Last 1 Encounters: 06/05/18 102.1 kg (225 lb) Estimated body mass index is 31.83 kg/m?? as calculated from the following: Height as of 06/05/18: 1.791 m (5' 10.5). Weight as of 06/05/18: 102.1 kg (225 lb). Anesthesia Plan History & Physical Review History and physical reviewed and following examination; no interval change. ASA Status: 3 . NPO Status: > 8 hours Plan for General and ETT with Intravenous induction. Maintenance will be Balanced. PONV prophylaxis: Ondansetron (or other 5HT-3) and Dexamethasone or Solumedrol OSAS orders. Postoperative Care Postoperative pain management: IV analgesics. Consents Anesthetic plan, risks, benefits and alternatives discussed with: Patient or patient support representative and Patient.. Morgan Waggoner MD . CH ENGINEER documented in this encounter Plan of Treatment Upcoming Encounters Date Type Specialty Care Team Description 05/20/2022 Lab Lab documented as of this encounter Visit Diagnoses Not on filedocumented in this encounter Administered Medications Inactive Administered Medications - up to 3 most recent administrations Medication Order MAR Action Action Date Dose Rate Site dexamethasone (DECADRON) injection Given 06/12/2018 8:56 AM SEARCH ENGINEER 4 mg Intravenous, PRN, Administer over 1 Minutes, Starting on Fri06/12/18 at 0856, Anesthesia Intra-op fentaNYL (PF) (SUBLIMAZE) injection Given 06/12/2018 8:56 AM SEARCH ENGINEER 100 mcg PRN, Administer over 3-5 Minutes, Starting on Fri06/12/18 at 0856, Anesthesia Intra-op glycopyrrolate (ROBINUL) injection Given 06/12/2018 8:56 AM SEARCH ENGINEER 0.2 mg Intravenous, PRN, Administer over 1-2 Minutes, Starting on Fri06/12/18 at 0856, Anesthesia Intra-op lactated ringers infusion New Bag 06/12/2018 9:30 AM SEARCH ENGINEER at 25 mL/hr, Intravenous, CONTINUOUS, IF patient NOT on dialysis., Pre-procedure, Starting on Fri06/12/18 at 0715, Until Fri06/12/18 at 0951 New Bag 06/12/2018 8:47 AM SEARCH ENGINEER lidocaine 1 % injection Given 06/12/2018 8:56 AM SEARCH ENGINEER 30 mg Intravenous, PRN, Starting on Fri06/12/18 at 0856, Anesthesia Intra-op midazolam (VERSED) injection Given 06/12/2018 8:51 AM SEARCH ENGINEER 2 mg Administer over 2 Minutes, PRN, Starting on Fri06/12/18 at 0851, Anesthesia Intra-op neostigmine (PROSTIGMINE) injection Given 06/12/2018 9:30 AM SEARCH ENGINEER 3 mg Intravenous, PRN, Starting on Fri06/12/18 at 0930, Anesthesia Intra-op ondansetron (ZOFRAN) injection Given 06/12/2018 8:56 AM SEARCH ENGINEER 4 mg Intravenous, PRN, Administer over 2-5 Minutes, Starting on Fri06/12/18 at 0856, Anesthesia Intra-op propofol (DIPRIVAN) injection 10 mg/mL v ial Given 06/12/2018 8:56 AM SEARCH ENGINEER 200 mg PRN, Starting on Fri06/12/18 at 0856, Anesthesia Intra-op rocuronium (ZEMURON) injection Given 06/12/2018 8:56 AM SEARCH ENGINEER 35 mg PRN, Starting on Fri06/12/18 at 0856, Anesthesia Intra-op documented in this encounter Care Teams Desk Pens Assembler Relationship Specialty Start Date End Date Froylan Louise MD PCP - General Family Practice 02/22/14 Froylan Louise MD PCP - Assigned PCP 03/13/14 08/25/18 Froylan Louise MD Assigned PCP 03/13/14 2 documented as of this encounter
--- OUTSIDE RECORDS SUMMARY | 2022-05-15 22:30 | XMS_ITS | Encounter Summary ---
:1955 Author Organization [place] Address [address] [place] [address] Care Team Providers Name Role Phone Froylan Louise MD Primary Care Provider Unavailable Froylan Louise MD Unavailable Unavailable Froylan Louise MD Unavailable Unavailable Encounter Details Date Type Department Care Team Description 07/27/2018 Anticoagulation Therapy [facility] Audrey [place] [address] [place] [address] Social History Tobacco Use Types [...] you attend christianity or Patient refused 2020 bahai services? Do [...] encounter Progress Notes Wendi Lindsay RN - 07/27/2018 4:57 PM CST ANTICOAGULATION FOLLOW-UP CLINIC VISIT Patient Name: Virgil Christine Date: 07/27/2018 Contact Type: Telephone SUBJECTIVE: Patient Findings Positives: No Problem Findings OBJECTIVE INR Date Value Ref Range Status 07/27/2018 2.90 (H) 0.86 - 1.14 Final Comment: This test is intended for monitoring Coumadin therapy. Results are not accurate in patients with prolonged INR due to factor deficiency. ASSESSMENT / PLAN INR assessment THER Recheck INR In: 2 WEEKS INR Location Clinic Anticoagulation Summary As of 07/27/2018 INR goal: 2.0-3.0 TTR: 56.3 % (7.3 mo) INR used for dosin.90 (07/27/2018) Warfarin maintenance plan: 5 mg (5 mg x 1) every Mon, Wed, Fri; 7.5 mg (7.5 mg x 1) all other days Full warfarin instructions: 5 mg every Mon, Wed, Fri; 7.5 mg all other days Weekly warfarin total: 45 mg No change documented: Wendi Lindsay RN Plan last modified: Yeimi Daniel RN (02/12/2018) Next INR check: 08/10/2018 Target end date: Indications Long-term (current) use of anticoagulants [Z79.01] [Z79.01] Embolism and thrombosis (H) (Resolved) [I74.9] Anticoagulation Episode Summary INR check location: Preferred lab: Send INR reminders to: TRIAGE Comments: See the Encounter Report to view Anticoagulation Flowsheet and Dosing Calendar (Go to Encounters tabin chart review, and find the Anticoagulation Therapy Visit) Wendi Lindsay RN COORDINATOR documented in this encounter Plan of Treatment Upcoming Encounters Date Type Specialty Care Team Description 05/20/2022 Lab Lab documented as of this encounter Visit Diagnoses Not on filedocumented in this encounter Care Teams Teletypesetter Operator Relationship Specialty Start Date End Date Froylan Louise MD PCP - General Family Practice 02/22/14 Froylan Louise MD PCP - Assigned PCP 03/13/14 08/25/18 Froylan Louise MD Assigned PCP 03/13/14 2 documented as of this encounter
--- OUTSIDE RECORDS SUMMARY | 2022-05-15 22:30 | XMS_ITS | Encounter Summary ---
:1955 Author Organization [place] Address [address] [place] [address] Care Team Providers Name Role Phone Froylan Louise MD Primary Care Provider Unavailable Froylan Louise MD Unavailable Unavailable Froylan Louise MD Unavailable Unavailable Reason for Visit Reason Comments Recheck Medication Encounter Details Date Type Department Care Team Description 08/10/[address] [facility] Froylan Louise Postthrom botic syndrome (Primary Dx); Clinic Chhyaa Dubose MD Acute deep vein thrombosis ( DVT) of proximal vein of both lower extremities (H); [id number] [facility] Insomnia, unspecified type; [place], [place] Other ulcerati ve colitis without complication (H); [address] Varicose veins of right lowe r extremity with both ulcer of ankle and inflammation (CODE) (H) [phone] Social History Tobacco Use Types Packs/Day Years Used Date Smoking Tobacco: Former Cigarettes 2 25 Quit : 08/04/2006 Smokeless Tobacco: Never Comments: 2004 Alcohol Use Standard Drinks/Week Comments Yes 0 (1 standard drink = 0.6 oz pure alcoho l) 4 BEERS A WEEK Alcohol Habits Answer Date Recorded How often do you have a drink containing 4 or more times a w [place] 05/25/2021 alcohol? How many drinks containing [...] you attend rastafari or Patient refused 2020 hinduism services? Do [...] Sign Reading Time Taken Comments Blood Pressure 144/72 08/10/2018 4:10 PM CONSULTANT IN ERGONOMICS AND SAFETY Pulse 69 08/10/2018 4:10 PM CONSULTANT IN ERGONOMICS AND SAFETY Temperature - - Respiratory Rate - - Oxygen Saturation 96% 08/10/2018 4:10 PM CONSULTANT IN ERGONOMICS AND SAFETY Inhaled Oxygen Concentration - - Weight 104.8 kg (231 lb) 08/10/2018 4:10 PM CONSULTANT IN ERGONOMICS AND SAFETY Height - - Body Mass Index 32.68 06/05/2018 3:03 PM CONSULTANT IN ERGONOMICS AND SAFETY documented in this encounter Progress Notes Froylan Louise MD - 08/10/2018 4:00 PM CST SUBJECTIVE: Virgil Christine is a 62 year old male who presents to clinic today for the following health issues: Patient here for follow-up of joint pain. Has been taking aleve for pain management. 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 Patient plans to retire in a couple of years. Denies numbness. Patient had an episode of severe chills. He had a fever of 103 at that time. Patient felt fatigued the day afterwards. He states these episodes occur two or three times per year. Denies cough, urinary symptoms, changes in bowel habits. ?? 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 Prior clot in the right lower extremity DVT in 2013 thought to be provoked with surgery after colectomy and has seen hematology who thought him safe to stop Coumadin.??He??was found to have extensive bilateral lower extremity DVT and PE in September 2017. ??He underwent mechanical and medical thrombectomy. Patient??was??restarted on??Coumadin. He would like new compression socks. ?? History of mild persistent asthma. History of ulcerative colitis, status post colectomy. Patient with history of insomnia. He uses Ambien as needed. Problem list and histories reviewed & adjusted, as indicated. Additional history: as documented Patient Active Problem List Diagnosis ??? Anticardiolipin antibody positive ??? Mild persistent asthma ??? Health Assisted ? ? Hyperlipidemia LDL goal <160 ??? [...] lower extremity, unspecified laterality, unspecified vein (H) Past Surgical History: Procedure Laterality Date [...] Last attempt to quit: 08/04/2006 Years since quittin.0 ??? Smokeless tobacco: Never Used ??? Tobacco comment: 2005 Substance Use Topics ??? Alcohol use: Yes Comment: 4 BEERS A WEEK Family History Problem Relation Age of Onset ??? Diabetes Mother ??? Colon Cancer No family hx of Reviewed and updated as needed this visit by clinical staff Tobacco Allergies Meds Med Hx Surg Hx Fam Hx Soc Hx Reviewed and updated as needed this visit by Provider ROS: CONSTITUTIONAL: as noted above RESP: NEGATIVE for significant cough or SOB GI: NEGATIVE for nausea, abdominal pain, heartburn, or change in bowel habits : negative for dysuria, hematuria, decreased urinary stream MUSCULOSKELETAL: as noted above NEURO: NEGATIVE for paresthesias PSYCHIATRIC: POSITIVE for Hx of insomnia This document serves as a record of the services and decisions personally performed and made by Froylan Louise MD. It was created on his behalf by Sofia Altman, a trained medical collections. The creation of this document is based on the provider's statements to the medical collections. Sofia Altman 4:22 PM August 10, 2018 OBJECTIVE: BP 144/72 (BP Location: Right arm, Patient Position: Chair, Cuff Size: Adult Regular) Pulse 69 Wt 104.8 kg (231 lb) SpO2 96% BMI 32.68 kg/m?? Body mass index is 32.68 kg/m??. GENERAL: healthy, alert and no distress ASSESSMENT/PLAN: 1. Postthrombotic syndrome - order for DME; Equipment being ordered: compression stockings, fit to size, 30-40 mm Hg, thigh high, 1 pair Dispense: 1 Units; Refill: 0 2. Acute deep vein thrombosis (DVT) of proximal vein of both lower extremities (H) Continue lifelong anticoagulation. With his history I am not sure if he would be okay taking a DOAC and we will leave that to hematology. This would be easier for him in terms of management though as some risks where not being able to reverse bleeding and may be an issue. - warfarin (COUMADIN) 7.5 MG tablet; TAKE 7.5 MG (ONE 7.5 MG TAB) ON MON, WED, FRI. AND TAKE 5 MG (ONE 5MG TAB) ON ALL OTHER DAYS Dispense: 90 tablet; Refill: 0 3. Insomnia, unspecified type - zolpidem ER (AMBIEN CR) 12.5 MG CR tablet; TAKE 1 TAB BY MOUTH NIGHTLY NEEDED FOR SLEEP Dispense: 30 tablet; Refill: 0 4. Other ulcerative colitis without complication (H) Stable after colectomy. 5. 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 I have reviewed and approved this document for accuracy prior to leaving the patient care area. 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
--- OUTSIDE RECORDS SUMMARY | 2022-05-15 22:30 | XMS_ITS | Encounter Summary ---
:1955 Author Organization [facility] Address [address] [place] [address] Care Team Providers Name Role Phone Froylan Louise MD Primary Care Provider Unavailable Froylan Louise MD Unavailable Unavailable Froylan Louise MD Unavailable Unavailable Encounter Details Date Type Department Care Team Description 06/26/2018 Travel Social History Tobacco Use Types Packs/Day Years Used Date Smoking Tobacco: Former Cigarettes 2 25 Quit : 08/04/2006 Smokeless Tobacco: Never Comments: 2005 Alcohol Use Standard Drinks/Week Comments Yes 0 (1 standard drink = 0.6 oz pure alcoho l) 4 BEERS A WEEK Alcohol Habits Answer Date Recorded How often do you have a drink containing 4 or more times a w tribe 05/25/2021 alcohol? How many drinks containing [...] you attend gnosticist or Patient refused 2020 hinduism services? Do [...] on filedocumented in this encounter Care Teams Assistant Facility Manager Relationship Specialty Start Date End Date Froylan Louise MD PCP - General Family Practice 02/22/14 Froylan Louise MD PCP - Assigned PCP 03/13/14 08/25/18 Froylan Louise MD Assigned PCP 03/13/14 2 documented as of this encounter
--- OUTSIDE RECORDS SUMMARY | 2022-05-15 22:30 | XMS_ITS | Encounter Summary ---
:1955 Author Organization [facility] Address [address] [place] [address] Care Team Providers Name Role Phone Froylan Louise MD Primary Care Provider Unavailable Froylan Louise MD Unavailable Unavailable Froylan Louise MD Unavailable Unavailable Encounter Details Date Type Department Care Team Description 07/27/2018 Travel Social History Tobacco Use Types Packs/Day [...] you attend methodist or Patient refused 2020 restorationism services? Do [...] on filedocumented in this encounter Care Teams Antique Jewelry Repairer Relationship Specialty Start Date End Date Froylan Louise MD PCP - General Family Practice 02/22/14 Frolyan Louise MD PCP - Assigned PCP 03/13/14 08/25/18 Froylan Loiuse MD Assigned PCP 03/13/14 2 documented as of this encounter
--- OUTSIDE RECORDS SUMMARY | 2022-05-15 22:30 | XMS_ITS | Encounter Summary ---
:1955 Author Organization [facility] Address [address] [place] [address] Care Team Providers Name Role Phone Froylan Louise MD Primary Care Provider Unavailable Froylan Louise MD Unavailable Unavailable Froylan Louise MD Unavailable Unavailable Encounter Details Date Type Department Care Team Description 06/15/2018 Anticoagulation Therapy Visit [address] [address] Social History Tobacco Use Types [...] 4 or more times a w [place] 05/25/2021 alcohol? How many drinks containing alcohol [...] you attend nondenominational or Patient refused 2020 restoration services? Do [...] encounter Progress Notes Wendi Lindsay RN - 06/15/2018 11:45 AM CST ANTICOAGULATION FOLLOW-UP CLINIC VISIT Patient Name: Virgil Christine Date: 06/15/2018 Contact Type: Face to Face SUBJECTIVE: Patient Findings Positives: Intentional hold of therapy Comments: Pt was instructed by Dr Suazo to discontinue lovenox due to sweating OBJECTIVE INR Protime Date Value Ref Range Status 06/15/2018 1.4 (A) 0.86 - 1.14 Final ASSESSMENT / PLAN INR assessment SUB Recheck INR In: 4 DAYS INR Location Clinic Anticoagulation Summary As of 06/15/2018 INR goal: 2.0-3.0 TTR: 54.9 % (5.9 mo) INR used for dosin.4! (06/15/2018) Warfarin maintenance plan: 5 mg (5 mg x 1) every Mon, Wed, Fri; 7.5 mg (7.5 mg x 1) all other days Full warfarin instructions: 5 mg every Mon, Wed, Fri; 7.5 mg all other days Weekly warfarin total: 45 mg Plan last modified: Yeimi Daniel RN (02/12/2018) Next INR check: 06/19/2018 Target end date: Indications Long-term (current) use of anticoagulants [Z79.01] [Z79.01] Embolism and thrombosis (H) (Resolved) [I74.9] Anticoagulation Episode Summary INR check location: Preferred lab: Send INR reminders to: [facility] Comments: See the Encounter Report to view Anticoagulation Flowsheet and Dosing Calendar (Go to Encounters tabin chart review, and find the Anticoagulation Therapy Visit) Wendi Lindsay RN I SENSOR OPERATOR documented in this encounter Plan of Treatment Upcoming Encounters Date Type Specialty Care Team Description 05/20/2022 Lab Lab documented as of this encounter Procedures Procedure Name Priority Date/Time Associated Diagnosis Comme nts INR POINT OF CARE Routine 06/15/2018 Results fo r this procedure are in the resu lts section. documented in this encounter Results (ABNORMAL) INR point of care (06/15/2018) P athologist Signature INR Point of 1.4 (A) 0.86 - [facility] 1.14 [facility] Specimen (Source) Anatomical Location Collection Method / Collectio n Time Received Time / Laterality Volume 06/15/2018 Froylan Louise MD LAB - BLOOD ORDERABLES Performing Organization Address City/State/ZIP Code Phon e Number [facility] [id number] [place] [address] documented in this encounter Visit Diagnoses Not on filedocumented in this encounter Care Teams Agricultural Engineering Technicians Relationship Specialty Start Date End Date Froylan Louise MD PCP - General Family Practice 02/22/14 Froylan Louise MD PCP - Assigned PCP 03/13/14 08/25/18 Froylan Louise MD Assigned PCP 03/13/14 2 documented as of this encounter
--- OUTSIDE RECORDS SUMMARY | 2022-05-15 22:30 | XMS_ITS | Encounter Summary ---
:1955 Author Organization [facility] Address [address] [place] [address] Care Team Providers Name Role Phone Froylan Louise MD Primary Care Provider Unavailable Froylan Louise MD Unavailable Unavailable Froylan Louise MD Unavailable Unavailable Encounter Details Date Type Department Care Team Description 06/12/2018 Travel Social History Tobacco Use Types Packs/Day [...] you attend christian or Patient refused 2020 islam services? Do [...] on filedocumented in this encounter Care Teams Welt Beater Relationship Specialty Start Date End Date Froylan Louise MD PCP - General Family Practice 02/22/14 Froylan Louise MD PCP - Assigned PCP 03/13/14 08/25/18 Froylan Louise MD Assigned PCP 03/13/14 2 documented as of this encounter
--- OUTSIDE RECORDS SUMMARY | 2022-05-15 22:30 | XMS_ITS | Encounter Summary ---
:1955 Author Organization [facility] Address [address] [place] [address] Care Team Providers Name Role Phone Froylan Louise MD Primary Care Provider Unavailable Froylan Louise MD Unavailable Unavailable Froylan Louise MD Unavailable Unavailable Encounter Details Date Type Department Care Team Description 06/15/2018 Travel Social History Tobacco Use Types Packs/Day Years Used Date Smoking Tobacco: Former Cigarettes 2 25 Quit : 08/04/2006 Smokeless Tobacco: Never Comments: 2005 Alcohol Use Standard Drinks/Week Comments Yes 0 (1 standard drink = 0.6 oz pure alcoho l) 4 BEERS A WEEK Alcohol Habits Answer Date Recorded How often do you have a drink containing 4 or more times a w [place] 05/25/2021 alcohol? How many drinks containing [...] you attend yazidism or Patient refused 2020 christian services? Do [...] for the very basics like Not h [place] at all 05/25/2021 food, housing, medical care, [...] on filedocumented in this encounter Care Teams Social Media Community Manager Relationship Specialty Start Date End Date Froylan Louise MD PCP - General Family Practice 02/22/14 Froylan Louise MD PCP - Assigned PCP 03/13/14 08/25/18 Froylan Louise MD Assigned PCP 03/13/14 2 documented as of this encounter
--- OUTSIDE RECORDS SUMMARY | 2022-05-15 22:30 | XMS_ITS | Encounter Summary ---
:1955 Author Organization [facility] Address [address] [place] [address] Care Team Providers Name Role Phone Froylan Louise MD Primary Care Provider Unavailable Froylan Louise MD Unavailable Unavailable Froylan Louise MD Unavailable Unavailable Reason for Visit Reason Comments Medication Refill multiple medications Encounter Details Date Type Department Care Team Description 08/03/2018 Refill [facility] Froylan Louise Ra, Medication Refill Chhaya VILLASEÑOR (multiple medications) [address] [place] [address] Social History Tobacco Use [...] you attend catholic or Patient refused 2020 jainism services? [...] Telephone Encounter - Wendi Lindsay RN - 08/04/2018 8:47 AM CST Routing refill request to provider for review/approval because: Labs out of range: ACT Wendi Lindsay RN, BSN ACT Total Scores 01/24/2016 06/13/2017 12/10/2017 ACT TOTAL SCORE - - - ASTHMA ER VISITS - - - ASTHMA HOSPITALIZATIONS - - - ACT TOTAL SCORE (Goal Greater than or Equal to 20) 24 23 19 In the past 12 months, how many times did you visit the emergency room for your asthma without beingadmitted to the hospital? 0 0 0 In the past 12 months, how many times were you hospitalized overnight because of your asthma? 0 0 0 [employer] Telephone Encounter - Arleen Vidal DIRECTOR OF ONCOLOGY - 08/03/2018 8:26 PM CST Requested Prescriptions Pending Prescriptions Disp Refills ??? SYMBICORT 160-4.5 MCG/ACT Inhaler [Pharmacy Med Name: SYMBICORT 160-4.5 MCG INHALER] Last Written Prescription Date: 04/30/2018 Last Fill Quantity: 3, # refills: 0 Last office visit: 06/05/2018 with prescribing provider: 06/05/2018 Future Office Visit: Next 5 appointments (look out 90 days) Aug 10, 2018 4:00 PM PRESIDENT [employer] CEO [employer] SHORT with Froylan Louise MD [facility] [id number] [place] [address] 30.6 Inhaler 0 Sig: TAKE 2 PUFFS BY MOUTH TWICE A DAY Inhaled Steroids Protocol Failed - 08/03/2018 5:19 PM Failed - Asthma control assessment score within normal limits in last 6 months Please review ACT score. Passed - Patient is age 12 or older Passed - Medication is active on med [...] & Orders section of the refill encounter. ??? warfarin (COUMADIN) 7.5 MG tablet [Pharmacy Med Name: WARFARIN SODIUM 7.5 MG TABLET] 30 tablet 0 Sig: TAKE 7.5 MG (ONE 7.5 MG TAB) ON MON, WED, FRI. AND TAKE 5 MG (ONE 5MG TAB) ON ALL OTHER DAYS Vitamin K Antagonists Failed - 08/03/2018 5:19 PM Failed - INR is within goal in the past 6 weeks Confirm INR is within goal in the past 6 weeks. Recent Labs Lab Test 07/27/18 1632 INR 2.90* Passed - Recent (12 mo) or future [...] is 18 years of age or older [employer] documented in this encounter Plan of Treatment Upcoming Encounters Date Type Specialty Care Team Description 05/20/2022 Lab Lab documented as of this encounter Visit Diagnoses Diagnosis Mild persistent asthma without complicat ion Unspecified asthma Acute deep vein thrombosis (DVT) of prox imal vein of both lower extremities (H) documented in this encounter Care Teams County Director Welfare Relationship Specialty Start Date End Date Froylan Louise MD PCP - General Family Practice 02/22/14 Froylan Louise MD PCP - Assigned PCP 03/13/14 08/25/18 Froylan Louise MD Assigned PCP 03/13/14 2 documented as of this encounter
--- OUTSIDE RECORDS SUMMARY | 2022-05-15 22:30 | XMS_ITS | Encounter Summary ---
:1955 Author Organization [facility] [facility] Address [address] [place] [address] Care Team Providers Name Role Phone Froylan Louise MD Primary Care Provider Unavailable Froylan Louise MD Unavailable Unavailable Froylan Louise MD Unavailable Unavailable Reason for Visit Reason Onset Date Comments Nurse Advice Line 08/17/2018 cold/cough Encounter Details Date Type Department Care Team Description 08/17/2018 Telephone [facility] Froylan Louise Nurs e Advice Line Clinic Chhaya VILLASEÑOR (cold/cough) [address] [place] [address] Social History Tobacco Use Types [...] you attend restorationist or Patient refused 2020 roman catholic services? [...] this encounter Miscellaneous Notes Telephone Encounter - Nay Simmons RN - 08/17/2018 12:31 PM CST Pt calling into clinic C/o low grade fever, nasal congestion, clear nasal mucous, cough, yellow productive cough Will try over the counter cough and cold relievers, no HTN Advised not to take extra ibuprofen if included in product, Encouraged to call back if symptoms don't resolve in few days or discharge becomes green, fever spikes Advised wiping down shared surfaces, good handwashing, cough & sneeze into elbow not hands Nay Simmons RN, BS Clinical Nurse Triage. LER OPERATOR documented in this encounter Plan of Treatment Upcoming Encounters Date Type Specialty Care Team Description 05/20/2022 Lab Lab documented as of this encounter Visit Diagnoses Not on filedocumented in this encounter Care Teams Store Sales Leader Relationship Specialty Start Date End Date Froylan Louise MD PCP - General Family Practice 02/22/14 Froylan Louise MD PCP - Assigned PCP 03/13/14 08/25/18 Froylan Louise MD Assigned PCP 03/13/14 2 documented as of this encounter
--- OUTSIDE RECORDS SUMMARY | 2022-05-15 22:30 | XMS_ITS | Encounter Summary ---
:1955 Author Organization [facility] Address [address] [place] [address] Care Team Providers Name Role Phone Froylan Louise MD Primary Care Provider Unavailable Froylan Louise MD Unavailable Unavailable Froylan Louise MD Unavailable Unavailable Encounter Details Date Type Department Care Team Description 06/14/2018 Travel Social History Tobacco Use Types Packs/Day [...] 4 or more times a w [place] 05/25/2021 alcohol? How many drinks containing alcohol [...] you attend shinto or Patient refused 2020 yazidi services? Do [...] on filedocumented in this encounter Care Teams Banana Grader Relationship Specialty Start Date End Date Froylan Louise MD PCP - General Family Practice 02/22/14 Froylan Louise MD PCP - Assigned PCP 03/13/14 08/25/18 Froylan Louise MD Assigned PCP 03/13/14 2 documented as of this encounter
--- OUTSIDE RECORDS SUMMARY | 2022-05-15 22:30 | XMS_ITS | Encounter Summary ---
:1955 Author Organization [facility] Address [address] [place] [address] Care Team Providers Name Role Phone Froylan Louise MD Primary Care Provider Unavailable Froylan Louise MD Unavailable Unavailable Froylan Louise MD Unavailable Unavailable Reason for Visit Reason Onset Date Comments Nurse Advice Line 07/27/2018 INR visit Encounter Details Date Type Department Care Team Description [facility]/27/2018 [facility] Chhaya VILLASEÑOR visit) [address] [place] [address] Social History Tobacco Use Types [...] attend jehovah's witness or Patient refused 2020 quaker services? Do [...] Telephone Encounter - Wendi Lindsay RN - 07/27/2018 4:04 PM CST INR order placed. Wendi Lindsay RN, BSN AL QA TESTER Telephone Encounter - Adriana Caro - 07/27/2018 3:36 PM MANUAL QA TESTER Pt called and asked to be put on the lab only schedule today and have RN's call with dosing. Pt has a work schedule that is frequently changing and he has been unable to get in for his anticoagulation visit. Call pt with questions at [phone] Brandon Vania Allergy Nurse 07/27/18 3:38 PM AL QA TESTER documented in this encounter Plan of Treatment Upcoming Encounters Date Type Specialty Care Team Description 05/20/2022 Lab Lab documented as of this encounter Visit Diagnoses Diagnosis Chronic deep vein thrombosis (DVT) of lo wer extremity, unspecified laterality, unspecified vein (H) - Primary emt intermediate current use of anticoagulant t herapy documented in this encounter Care Teams Candy Maker Helper Relationship Specialty Start Date End Date Froylan Louise MD PCP - General Family Practice 02/22/14 Froylan Louise MD PCP - Assigned PCP 03/13/14 08/25/18 Froylan Louise MD Assigned PCP 03/13/14 2 documented as of this encounter
--- OUTSIDE RECORDS SUMMARY | 2022-05-15 22:30 | XMS_ITS | Encounter Summary ---
:1955 Author Organization [facility] Address [address] [place] [address] Care Team Providers Name Role Phone Froylan Louise MD Primary Care Provider Unavailable Froylan Louise MD Unavailable Unavailable Froylan Louise MD Unavailable Unavailable Encounter Details Date Type Department Care Team Description 06/26/2018 Anticoagulation Therapy Visit [address] [address] Social History Tobacco Use Types [...] containing 4 or more times a w [place] 05/25/2021 alcohol? How many drinks containing alcohol [...] you attend religion or Patient refused 2020 hinduism services? Do [...] Progress Notes Page, Esthela Conrad RN - 06/26/2018 4:00 PM CST ANTICOAGULATION FOLLOW-UP CLINIC VISIT Patient Name: Virgil Christine Date: 06/26/2018 Contact Type: Face to Face SUBJECTIVE: Patient Findings Positives: No Problem Findings OBJECTIVE INR Protime Date Value Ref Range Status 06/26/2018 2.8 (A) 0.86 - 1.14 Final ASSESSMENT / PLAN No question data found. Anticoagulation Summary As of 06/26/2018 INR goal: 2.0-3.0 TTR: 54.4 % (6.3 mo) INR used for dosin.8 (06/26/2018) Warfarin maintenance plan: 5 mg (5 mg x 1) every Mon, Wed, Fri; 7.5 mg (7.5 mg x 1) all other days Full warfarin instructions: 5 mg every Mon, Wed, Fri; 7.5 mg all other days Weekly warfarin total: 45 mg Plan last modified: Yeimi Daniel RN (02/12/2018) Next INR check: 07/10/2018 Target end date: Indications Long-term (current) use of anticoagulants [Z79.01] [Z79.01] Embolism and thrombosis (H) (Resolved) [I74.9] Anticoagulation Episode Summary INR check location: Preferred lab: Send INR reminders to: [facility] Comments: See the Encounter Report to view Anticoagulation Flowsheet and Dosing Calendar (Go to Encounters tabin chart review, and find the Anticoagulation Therapy Visit) Esthela Corea RN PLACER documented in this encounter Plan of Treatment Upcoming Encounters Date Type Specialty Care Team Description 05/20/2022 Lab Lab documented as of this encounter Procedures Procedure Name Priority Date/Time Associated Diagnosis Comme nts INR POINT OF CARE Routine 06/26/2018 Results fo r this procedure are in the resu lts section. documented in this encounter Results (ABNORMAL) INR point of care (06/26/2018) P athologist Signature INR Point of 2.8 (A) 0.86 - [facility] 1.14 [facility] Specimen (Source) Anatomical Location Collection Method / Collectio n Time Received Time / Laterality Volume 06/26/2018 Froylan Louise MD LAB - BLOOD ORDERABLES Performing Organization Address City/State/ZIP Code Phon e Number [facility] [id number] [place] [address] documented in this encounter Visit Diagnoses Not on filedocumented in this encounter Care Teams Whiskey Proof Reader Relationship Specialty Start Date End Date Froylan Louise MD PCP - General Family Practice 02/22/14 Froylan Louise MD PCP - Assigned PCP 03/13/14 08/25/18 Froylan Louise MD Assigned PCP 03/13/14 2 documented as of this encounter
--- OUTSIDE RECORDS SUMMARY | 2022-05-15 22:30 | XMS_ITS | Encounter Summary ---
:1955 Author Organization [facility] Address [address] [place] [address] Care Team Providers Name Role Phone Froylan Louise MD Primary Care Provider Unavailable Froylan Louise MD Unavailable Unavailable Froylan Louise MD Unavailable Unavailable Reason for Visit Reason Onset Date Comments Pharyngitis 06/22/2018 Encounter Details Date Type Department Care Team Description 06/22/[address] [facility] Froylan Louise Ra, MD Pharyngitis [address] [address] Social History Tobacco [...] you attend latter-day or Patient refused 2020 scientologist services? Do [...] Encounter - Page, Esthela Conrad RN - 06/22/2018 1:04 PM CST Since surgery on 06/12 pt has had sore throat. Denies any fever, no other sick symptoms. No issues swallowing although it does hurt to swallow at times Offered appt with UC today pt declined. Advised warm salt water gargles. OTC throat lozenges and warm tea with honey. If worsens or develops ill symptoms be seen in clinic. Pt expressed understanding and acceptance of the plan. Pt had no further questions at this time. Advised can call back to clinic at any time with concerns. Esthela Corea RN MOTORMAN documented in this encounter Plan of Treatment Upcoming Encounters Date Type Specialty Care Team Description 05/20/2022 Lab Lab documented as of this encounter Visit Diagnoses Not on filedocumented in this encounter Care Teams Control Area Operator Relationship Specialty Start Date End Date Froylan Louise MD PCP - General Family Practice 02/22/14 Froylan Louise MD PCP - Assigned PCP 03/13/14 08/25/18 Froylan Louise MD Assigned PCP 03/13/14 2 documented as of this encounter
--- OUTSIDE RECORDS SUMMARY | 2022-05-15 22:30 | XMS_ITS | Encounter Summary ---
:1955 Author Organization [facility] Address [address] [place] [address] Care Team Providers Name Role Phone Froylan Louise MD Primary Care Provider Unavailable Froylan Louise MD Unavailable Unavailable Froylan Louise MD Unavailable Unavailable Encounter Details Date Type Department Care Team Description 07/27/2018 Orders Only [facility] onic deep vein thrombosis (DVT) of lower extremity, unspecified laterality, unspecified vein (H); [facility] care home current use of ant icoagulant therapy [address] [place] [address] Social History Tobacco Use [...] containing 4 or more times a w [place] 05/25/2021 alcohol? How many drinks containing [...] you attend orthodox or Patient refused 2020 baptism services? Do [...] Date/Time Associated Diagnosis Comme nts INR Routine 07/27/2018 4:32 PM Chronic deep vein Resu lts for this KNIFE SHARPENER thrombosis (DVT) of procedur e are in lower extremity, the results unspecified laterality, sect ion. unspecified vein (H) care home current use of anticoagulant therapy documented in this encounter Results (ABNORMAL) INR (07/27/2018 4:32 PM KNIFE SHARPENER) athologist Signature INR 2.90 (H) 0.86 - 1.14 07/27/2018 [place] 4:43 PM [facility] Comment: This test is intended for monitoring Cou madin therapy. ??Results are not accurate in patients with prolonged INR due to factor deficiency. Specimen Anatomical Collection Method Collection Time Receive d Time (Source) Location / / Volume Laterality Blood specimen 07/27/2018 4:32 PM 019 4:33 (specimen) KNIFE SHARPENER PM KNIFE SHARPENER Froylan Louise MD LAB - BLOOD ORDERABLES Performing Organization Address City/State/ZIP Code Phon e Number [facility] [id number] [place] [address] documented in this encounter Visit Diagnoses Diagnosis Chronic deep vein thrombosis (DVT) of lo wer extremity, unspecified laterality, unspecified vein (H) care home current use of anticoagulant t herapy documented in this encounter Care Teams Advanced Manufacturing Consultant Relationship Specialty Start Date End Date Froylan Louise MD PCP - General Family Practice 02/22/14 Froylan Louise MD PCP - Assigned PCP 03/13/14 08/25/18 Froylan Louise MD Assigned PCP 03/13/14 2 documented as of this encounter
--- OUTSIDE RECORDS SUMMARY | 2022-05-15 22:30 | XMS_ITS | Encounter Summary ---
:1955 Author Organization [place] Address [address] [place] [address] Care Team Providers Name Role Phone Froylan Louise MD Primary Care Provider Unavailable Froylan Louise MD Unavailable Unavailable Froylan Louise MD Unavailable Unavailable Reason for Visit Reason Onset Date Comments Nurse Advice Line 07/27/2018 Encounter Details Date Type Department Care Team Description 07/27/2018 Telephone [facility] Froylan Louise Ra, MD Nurse Advice Line [address] [address] Social History Tobacco Use [...] containing 4 or more times a w [place] 05/25/2021 alcohol? How many drinks containing alcohol [...] you attend lutheran or Patient refused 2020 anabaptism services? Do [...] encounter Miscellaneous Notes Telephone Encounter - Page, Estehla Conrad RN - 08/04/2018 9:33 AM CST Pt does have appt for this on 08/10 Esthela Corea RN W MACHINE OPERATOR Telephone Encounter - Froylan Louise MD - 08/04/2018 9:18 AM CST We could see him in clinic to discuss what other medications could address pain. May need certain joints looked at more specifically for arthritis and consider injection or other intervention. W MACHINE OPERATOR Telephone Encounter - Wendi Lindsay RN - 07/30/2018 2:19 PM CST Per patient he has a lot of joint pain in all his joints and headaches. This is what he takes the Aleve for Wendi Lindsay RN, BSN W MACHINE OPERATOR Telephone Encounter - Froylan Louise MD - 07/30/2018 12:30 PM CST What pain issue is he experiencing? W MACHINE OPERATOR Telephone Encounter - Esthela Corea RN - 07/29/2018 10:04 AM CST Pt advised again should NOT take Aleve on a regular basis. I don't care I need something for the pain Pt advised there are other things pt can be given as RX from the provider to help with pain. Would need OV with provider to discuss this. He is at great risk for bleed and could if has brain bleed or other bleed from this. I don't care I just need to do something for the pain Pt did schedule with PCP for 08/10 as he will have INR check that day. Given this information are you still ok with pt doing home INR checks. Esthela Corea RN W MACHINE OPERATOR Telephone Encounter - Froylan Louise MD - 07/29/2018 9:32 AM CST I would not recommend NSAID with coumadin. W MACHINE OPERATOR Telephone Encounter - Wendi Lindsay RN - 07/27/2018 5:02 PM CST Discussed INR with patient and he states that he should stop taking Aleve daily as he has been doingthis for 20+ years and try taking Tylenol since he is on coumadin. Pt states that the tylenol is notworking for him and wondering if he can go back to the Aleve. Please advise if this is ok for patient. He did have some recent blood work done. Wendi Lindsay RN, BSN W MACHINE OPERATOR documented in this encounter Plan of Treatment Upcoming Encounters Date Type Specialty Care Team Description 05/20/2022 Lab Lab documented as of this encounter Visit Diagnoses Not on filedocumented in this encounter Care Teams Digital Analyst Relationship Specialty Start Date End Date Froylan Louise MD PCP - General Family Practice 02/22/14 Froylan Louise MD PCP - Assigned PCP 03/13/14 08/25/18 Froylan Louise MD Assigned PCP 03/13/14 2 documented as of this encounter
--- OUTSIDE RECORDS SUMMARY | 2022-05-15 22:30 | XMS_ITS | Encounter Summary ---
:1955 Author Organization [place] Address [address] [place] [address] Care Team Providers Name Role Phone Froylan Louise MD Primary Care Provider Unavailable Froylan Louise MD Unavailable Unavailable Froylan Louise MD Unavailable Unavailable Reason for Visit Reason Comments Medication Refill loperamide (IMODIUM) 2 MG ca psule Encounter Details Date Type Department Care Team Description 06/19/2018 Refill [facility] Froylan Louise Ra, Medication Refill Chhaya VILLASEÑOR (loperamide (IMODIUM) [address] MG capsule) [place] [address] Social History Tobacco Use [...] containing 4 or more times a w [place] 05/25/2021 alcohol? How many drinks containing [...] you attend mormon or Patient refused 2020 congregational services? Do [...] Telephone Encounter - Esthela Corea RN - 06/22/2018 1:06 PM CST Prescription approved per [facility] Refill Protocol. Esthela Corea RN MACIST INTERN Telephone Encounter - Arleen Vidal ELEVATOR REPAIRER - 06/19/2018 8:12 PM CST Requested Prescriptions Pending Prescriptions Disp Refills ??? loperamide (IMODIUM) 2 MG capsule [Pharmacy Med Name: LOPERAMIDE 2 MG Last Written Prescription Date: 03/23/2018 Last Fill Quantity: 480, # refills: 0 Last office visit: 06/05/2018 with prescribing provider: 06/05/2018 Future Office Visit: CAPSULE] 480 capsule 0 Sig: TAKE 3-4 CAPSULES (6-8 MG) BY MOUTH 3 TIMES DAILY NEEDED FOR DIARRHEA There is no refill protocol information for this order MACIST INTERN documented in this encounter Plan of Treatment Upcoming Encounters Date Type Specialty Care Team Description 05/20/2022 Lab Lab documented as of this encounter Visit Diagnoses Diagnosis H/O ulcerative colitis Personal history of other diseases of di gestive system documented in this encounter Care Teams Filtration Plant Mechanic Relationship Specialty Start Date End Date Froylan Louise MD PCP - General Family Practice 02/22/14 Froylan Louise MD PCP - Assigned PCP 03/13/14 08/25/18 Froylan Louise MD Assigned PCP 03/13/14 2 documented as of this encounter
--- OUTSIDE RECORDS SUMMARY | 2022-05-15 22:30 | XMS_ITS | Encounter Summary ---
:1955 Author Organization [place] Address [address] [place] [address] Care Team Providers Name Role Phone Froylan Louise MD Primary Care Provider Unavailable Froylan Louise MD Unavailable Unavailable Froylan Louise MD Unavailable Unavailable Encounter Details Date Type Department Care Team Description 06/19/2018 Travel Social History Tobacco Use Types Packs/Day [...] you attend shinto or Patient refused 2020 voodoo services? Do [...] on filedocumented in this encounter Care Teams Auto Customize Painter Relationship Specialty Start Date End Date Froylan Louise MD PCP - General Family Practice 02/22/14 Froylan Louise MD PCP - Assigned PCP 03/13/14 08/25/18 Froylan Louise MD Assigned PCP 03/13/14 2 documented as of this encounter
--- OUTSIDE RECORDS SUMMARY | 2022-05-15 22:30 | XMS_ITS | Encounter Summary ---
:1955 Author Organization [place] Address [address] [place] [address] Care Team Providers Name Role Phone Froylan Louise MD Primary Care Provider Unavailable Froylan Louise MD Unavailable Unavailable Froylan Louise MD Unavailable Unavailable Reason for Visit Reason Comments Medication Refill Encounter Details Date Type Department Care Team Description 07/08/2018 Refill [facility] Froylan Louise Ra, MD Medication Refill [address] [address] Social History Tobacco [...] you attend confucianist or Patient refused 2020 evangelical services? Do [...] (H) documented in this encounter Care Teams Bessemer Converter Operator Relationship Specialty Start Date End Date Froylan Louise MD PCP - General Family Practice 02/22/14 Froylan Louise MD PCP - Assigned PCP 03/13/14 08/25/18 Froylan Louise MD Assigned PCP 03/13/14 2 documented as of this encounter
--- OUTSIDE RECORDS SUMMARY | 2022-05-15 22:30 | XMS_ITS | Encounter Summary ---
:1955 Author Organization [place] Address [address] [place] [address] Care Team Providers Name Role Phone Froylan Louise MD Primary Care Provider Unavailable Froylan Louise MD Unavailable Unavailable Froylan Louise MD Unavailable Unavailable Encounter Details Date Type Department Care Team Description 06/19/2018 Anticoagulation Therapy Visit [address] [address] Social History Tobacco Use Types [...] 4 or more times a w [place] 05/25/2021 alcohol? How many drinks containing alcohol [...] you attend mormon or Patient refused 2020 pentecostalism services? Do [...] encounter Progress Notes Wendi Lindsay RN - 06/19/2018 3:45 PM CST ANTICOAGULATION FOLLOW-UP CLINIC VISIT Patient Name: Virgil Christine Date: 06/19/2018 Contact Type: Face to Face SUBJECTIVE: Patient Findings Positives: Change in diet/appetite Comments: Increased greens OBJECTIVE INR Protime Date Value Ref Range Status 06/19/2018 1.7 (A) 0.86 - 1.14 Final ASSESSMENT / PLAN INR assessment SUB Recheck INR In: 1 WEEK INR Location Clinic Anticoagulation Summary As of 06/19/2018 INR goal: 2.0-3.0 TTR: 53.7 % (6 mo) INR used for dosin.7! (06/19/2018) Warfarin maintenance plan: 5 mg (5 mg x 1) every Mon, Wed, Fri; 7.5 mg (7.5 mg x 1) all other days Full warfarin instructions: 06/19: 10 mg; Otherwise 5 mg every Mon, Wed, Fri; 7.5 mg all other days Weekly warfarin total: 45 mg Plan last modified: Yeimi Daniel RN (02/12/2018) Next INR check: 06/26/2018 Target end date: Indications Long-term (current) use [...] physician directed care plan. Wendi Lindsay RN CIAL GREETER documented in this encounter Plan of Treatment Upcoming Encounters Date Type Specialty Care Team Description 05/20/2022 Lab Lab documented as of this encounter Procedures Procedure Name Priority Date/Time Associated Diagnosis Comme nts INR POINT OF CARE Routine 06/19/2018 Results fo r this procedure are in the resu lts section. documented in this encounter Results (ABNORMAL) INR point of care (06/19/2018) P athologist Signature INR Point of 1.7 (A) 0.86 [facility]14 [facility] Specimen (Source) Anatomical Location Collection Method / Collectio n Time Received Time / Laterality Volume 06/19/2018 Froylan Louise MD LAB - BLOOD ORDERABLES Performing Organization Address City/State/ZIP Code Phon e Number [facility] [id number] [place] [address] documented in this encounter Visit Diagnoses Not on filedocumented in this encounter Care Teams Insulation Estimator Relationship Specialty Start Date End Date Froylan Louise MD PCP - General Family Practice 02/22/14 Froylan Louise MD PCP - Assigned PCP 03/13/14 08/25/18 Froylan Louise MD Assigned PCP 03/13/14 2 documented as of this encounter
--- OUTSIDE RECORDS SUMMARY | 2022-05-15 22:30 | XMS_ITS | Encounter Summary ---
:1955 Author Organization [place] Address [address] [place] [address] Care Team Providers Name Role Phone Froylan Louise MD Primary Care Provider Unavailable Froylan Louise MD Unavailable Unavailable Froylan Louise MD Unavailable Unavailable Encounter Details Date Type Department Care Team Description 07/16/2018 Travel Social History Tobacco Use Types Packs/Day [...] you attend gnosticist or Patient refused 2020 alevism services? Do [...] in this encounter Care Teams Director Of Instrumental Music Relationship Specialty Start Date End Date Froylan Louise MD PCP - General Family Practice 02/22/14 Froylan Louise MD PCP - Assigned PCP 03/13/14 08/25/18 Froylan Louise MD Assigned PCP 03/13/14 2 documented as of this encounter
--- OUTSIDE RECORDS SUMMARY | 2022-05-15 22:30 | XMS_ITS | Encounter Summary ---
:1955 Author Organization [place] Address [address] [place] [address] Care Team Providers Name Role Phone Froylan Louise MD Primary Care Provider Unavailable Froylan Louise MD Unavailable Unavailable Froylan Louise MD Unavailable Unavailable Esthela Corea RN Unavailable Unavailable So Dodd MD Primary Care Provider Froylan Louise MD Primary Care Provider Unavailable So Dodd MD Unavailable So Dodd MD Primary Care Provider Reason for Visit Reason Onset Date Comments Refill Request 07/11/2018 warfarin (COUMADIN) 5 MG tablet Encounter Details Date Type Department Care Team Description 07/11/2018 Refill [facility] Froylan Louise Ra, Refill Request (warfarin Chhaya VILLASEÑOR (COUMADIN) 5 MG tablet) [address] [place] [address] Social History Tobacco Use [...] you attend hinduism or Patient refused 2020 mandaeism services? Do [...] Telephone Encounter - Wendi Lindsay RN - 07/13/2018 7:26 AM CST Prescription approved per [facility] Refill Protocol. Wendi Lindsay RN, BSN [facility] MEDICINE HOSPITALIST Telephone Encounter - Thais Clifton - 07/11/2018 8:22 AM CST Requested Prescriptions Pending Prescriptions Disp Refills ??? warfarin (COUMADIN) 5 MG tablet [Pharmacy Med Name: WARFARIN SODIUM 5 MG TABLET] Last Written Prescription Date: 07/08/2018 Last Fill Quantity: 30 tablet, # refills: 0 Last office visit: 06/05/2018 with prescribing provider: Dani 90 tablet 0 Si MG ON MON, WED, FRI 7.5 MG ALL OTHER DAYS Vitamin K Antagonists Failed - 07/11/2018 12:27 AM Failed - INR is within goal in the past 6 weeks Confirm INR is within goal in the past 6 weeks. Recent Labs Lab Test 06/26/18 INR 2.8* Passed - Recent (12 mo) or future [...] is 18 years of age or older [facility] MEDICINE HOSPITALIST documented in this encounter Plan of Treatment [...] documented as of this encounter Care Teams Radio Message Router Relationship Specialty Start Date End Date Froylan Louise MD PCP - General Family Practice 02/22/14 Froylan Louise MD PCP - Assigned PCP 03/13/14 08/25/18 So Dodd MD PCP - General Family Medicine 01/10/22 01/17/22 [address] [place] [address] Froylan Louise MD PCP - General Family Medicine 01/18/22 So Dodd MD PCP - General [facility] 02/21/22 [address] [place] [address] Froylan Louise MD Assigned PCP 03/13/14 2 Esthela Corea, RN Personal Advocate & Liaison Family Medicine 10/16 (PAL) So Dodd MD Assigned PCP 01/05/22 [address] [place], [place] [id number] documented as of this encounter
--- OUTSIDE RECORDS SUMMARY | 2022-05-15 22:30 | XMS_ITS | Encounter Summary ---
:1955 Author Organization [place] Address [address] [place] [address] Care Team Providers Name Role Phone Froylan Louise MD Primary Care Provider Unavailable Froylan Louise MD Unavailable Unavailable Froylan Louise MD Unavailable Unavailable Encounter Details Date Type Department Care Team Description 07/16/2018 Anticoagulation Therapy Visit [address] [address] Social History Tobacco Use Types [...] Progress Notes Page, Esthela Conrad RN - 07/16/2018 4:00 PM CST ANTICOAGULATION FOLLOW-UP CLINIC VISIT Patient Name: Virgil Christine Date: 07/16/2018 Contact Type: Face to Face SUBJECTIVE: Patient Findings Positives: No Problem Findings OBJECTIVE INR Protime Date Value Ref Range Status 07/16/2018 1.6 (A) 0.86 - 1.14 Final ASSESSMENT / PLAN Pt has been taking Aleve at least 2 tabs daily. Did discuss this can not be used, should only be using tylenol.. If does not get relief from back pain then discuss with PCP. Due to travel/work schedule would like to see if he qualifies for home INR Anticoagulation Summary As of 07/16/2018 INR goal: 2.0-3.0 TTR: 55.6 % (6.9 mo) INR used for dosin.6! (07/16/2018) Warfarin maintenance plan: 5 mg (5 mg x 1) every Mon, Wed, Fri; 7.5 mg (7.5 mg x 1) all other days Full warfarin instructions: 07/16: 10 mg; 07/17: 7.5 mg; Otherwise 5 mg every Mon, Wed, Fri; 7.5 mg all other days Weekly warfarin total: 45 mg Plan last modified: Yeimi Daniel RN (02/12/2018) Next INR check: 07/24/2018 Target end date: Indications Long-term (current) use [...] based on physician directed care plan. Esthela Corea RN TRANSIT OPERATOR Esthela Corea RN - 07/16/2018 4:00 PM CST Chucky paperwork started to PCP for signature Esthela Corea RN TRANSIT OPERATOR documented in this encounter Plan of Treatment Upcoming Encounters Date Type Specialty Care Team Description 05/20/2022 Lab Lab documented as of this encounter Procedures Procedure Name Priority Date/Time Associated Diagnosis Comme nts INR POINT OF CARE Routine 07/16/2018 Results fo r this procedure are in the resu lts section. documented in this encounter Results (ABNORMAL) INR point of care (07/16/2018) P athologist Signature INR Point of 1.6 (A) 0.86 - [facility] 1.14 [facility] Specimen (Source) Anatomical Location Collection Method / Collectio n Time Received Time / Laterality Volume 07/16/2018 Froylan Louise MD LAB - BLOOD ORDERABLES Performing Organization Address City/State/ZIP Code Phon e Number [facility] [id number] [place] [address] documented in this encounter Visit Diagnoses Not on filedocumented in this encounter Care Teams Global Technical Writer Relationship Specialty Start Date End Date Froylan Louise MD PCP - General Family Practice 02/22/14 Froylan Louise MD PCP - Assigned PCP 03/13/14 08/25/18 Froylan Louise MD Assigned PCP 03/13/14 2 documented as of this encounter
--- OUTSIDE RECORDS SUMMARY | 2022-05-15 22:30 | XMS_ITS | Encounter Summary ---
:1955 Author Organization [place] Address [address] [place] [address] Care Team Providers Name Role Phone Froylan Louise MD Primary Care Provider Unavailable Froylan Louise MD Unavailable Unavailable Froylan Louise MD Unavailable Unavailable Encounter Details Date Type Department Care Team Description 08/10/2018 Travel Social History Tobacco Use Types Packs/Day [...] you attend jew or Patient refused 2020 baptist services? Do [...] on filedocumented in this encounter Care Teams Predator Control Trapper Relationship Specialty Start Date End Date Froylan Louise MD PCP - General Family Practice 02/22/14 Froylan Louise MD PCP - Assigned PCP 03/13/14 08/25/18 Froylan Louise MD Assigned PCP 03/13/14 2 documented as of this encounter
--- OUTSIDE RECORDS SUMMARY | 2022-05-15 22:31 | XMS_ITS | Encounter Summary ---
:1955 Author Organization [place] Address [address] [place] [address] Care Team Providers Name Role Phone Froylan Louise MD Primary Care Provider Unavailable Froylan Louise MD Unavailable Unavailable Froylan Louise MD Unavailable Unavailable Reason for Visit Reason Onset Date Comments Nurse Advice Line 04/13/2018 franca valverde Encounter Details Date Type Department Care Team Description 04/13/2018 Telephone [facility] Froylan Louise Nurs e Advice Line Clinic Chhaya VILLASEÑOR (franca valverde) [address] [place] [address] Social History Tobacco Use Types [...] containing 4 or more times a w [place] 05/25/2021 alcohol? How many drinks containing alcohol [...] you attend tenriism or Patient refused 2020 pentecostalism services? Do [...] Telephone Encounter - Wendi Lindsay RN - 04/13/2018 8:57 AM CDT Pt calling from [place] stating he is having surgery today at 2pm for his fistula and has been on a4 day hole. Advised to start warfarin tonight unless told by surgeon not to and to follow up when heis back on warfarin for at least 5-7 days. Wendi Lindsay RN, BSN documented in this encounter Plan of Treatment Upcoming Encounters Date Type Specialty Care Team Description 05/20/2022 Lab Lab documented as of this encounter Visit Diagnoses Not on filedocumented in this encounter Care Teams Figure Skater Relationship Specialty Start Date End Date Froylan Louise MD PCP - General Family Practice 02/22/14 Froylan Louise MD PCP - Assigned PCP 03/13/14 08/25/18 Froylan Louise MD Assigned PCP 03/13/14 2 documented as of this encounter
--- OUTSIDE RECORDS SUMMARY | 2022-05-15 22:31 | XMS_ITS | Encounter Summary ---
:1955 Author Organization [place] Address [address] [place] [address] Care Team Providers Name Role Phone Froylan Louise MD Primary Care Provider Unavailable Froylan Louise MD Unavailable Unavailable Froylan Louise MD Unavailable Unavailable Encounter Details Date Type Department Care Team Description 06/11/2018 Anticoagulation Therapy Visit [address] [address] Social History Tobacco Use Types [...] containing 4 or more times a w nikolai 05/25/2021 alcohol? How many drinks containing alcohol [...] or relatives? How often do you attend latter day or Patient refused 2020 restorationist services? Do you belong to any clubs or Yes 05/25/2021 organizations such as latter day groups, unions, fraternal or athletic groups, or [...] Progress Notes Page, Esthela Conrad RN - 06/11/2018 1:45 PM CST ANTICOAGULATION FOLLOW-UP CLINIC VISIT Patient Name: Virgil Christine Date: 06/11/2018 Contact Type: Face to Face SUBJECTIVE: Patient Findings Positives: Intentional hold of therapy OBJECTIVE Pt states he is using the lovenox at hs as he does not remember am. He has had terrible night sweats since starting this He is not to take lovenox tonight but will resume both lovenox and coumadin post surgery tomorrow. If he has night sweats again he will call appraiser irrigation tax provider to discuss. INR Protime Date Value Ref Range Status 05/25/2018 3.0 (A) 0.86 - 1.14 Final ASSESSMENT / PLAN No question data found. Anticoagulation Summary As of 06/11/2018 INR goal: 2.0-3.0 TTR: 56.2 % (5.2 mo) INR used for dosing: Warfarin maintenance plan: 5 mg (5 mg x 1) every Mon, Wed, Fri; 7.5 mg (7.5 mg x 1) all other days Full warfarin instructions: 06/11: Hold; 06/12: 7.5 mg; Otherwise 5 mg every Mon, Wed, Fri; 7.5 mg all other days Weekly warfarin total: 45 mg Plan last modified: Yeimi Daniel RN (02/12/2018) Next INR check: 06/15/2018 Target end date: Indications Long-term (current) use [...] physician directed care plan. Esthela Corea RN PUNCHING MACHINE OPERATOR documented in this encounter Plan of Treatment Upcoming Encounters Date Type Specialty Care Team Description 05/20/2022 Lab Lab documented as of this encounter Procedures Procedure Name Priority Date/Time Associated Diagnosis Comme nts INR POINT OF CARE Routine 06/11/2018 Results fo r this procedure are in the resu lts section. documented in this encounter Results (ABNORMAL) INR point of care (06/11/2018) P athologist Signature INR Point of 1.2 (A) 0.86 - [facility] 1.14 [facility] Specimen (Source) Anatomical Location Collection Method / Collectio n Time Received Time / Laterality Volume 06/11/2018 Froylan Louise MD LAB - BLOOD ORDERABLES Performing Organization Address City/State/ZIP Code Phon e Number [facility] [id number] [place] [address] documented in this encounter Visit Diagnoses Not on filedocumented in this encounter Care Teams Test Baker Relationship Specialty Start Date End Date Froylan Louise MD PCP - General Family Practice 02/22/14 Froylan Louise MD PCP - Assigned PCP 03/13/14 08/25/18 Froylan Louise MD Assigned PCP 03/13/14 2 documented as of this encounter
--- OUTSIDE RECORDS SUMMARY | 2022-05-15 22:31 | XMS_ITS | Encounter Summary ---
:1955 Author Organization [place] Address [address] [place] [address] Care Team Providers Name Role Phone Froylan Louise MD Primary Care Provider Unavailable Froylan Louise MD Unavailable Unavailable Froylan Louise MD Unavailable Unavailable Reason for Visit Reason Onset Date Comments Refill Request 04/27/2018 warfarin (COUMADIN) 5 MG tablet Encounter Details Date Type Department Care Team Description 04/27/2018 Refill [facility] Froylan Louise Ra, Refill Request (warfarin Chhaya VILLASEÑOR (COUMADIN) 5 MG tablet) [address] [place] [address] Social History Tobacco Use [...] containing 4 or more times a w [place] 05/25/2021 alcohol? How many drinks containing alcohol [...] you attend congregation or Patient refused 2020 restorationism services? Do [...] Telephone Encounter - Wendi Lindsay RN - 04/28/2018 11:31 AM CST Prescription [place] [facility] [place] Protocol. Wendi Lindsay RN, BSN PER TENDER Telephone Encounter - Carlos Alberto Black - 04/27/2018 6:55 AM CST Requested Prescriptions Pending Prescriptions Disp Refills ??? warfarin (COUMADIN) 5 MG tablet [Pharmacy Med Name: WARFARIN SODIUM 5 MG TABLET] 30 tablet 0 Last Written Prescription Date: 01/23/2018 Last Fill Quantity: 30 TABLET, # refills: 0 Last office visit: 03/23/2018 with prescribing provider: 03/23/2018 Future Office Visit: Next 5 appointments (look out 90 days) May 18, 2018 2:50 PM SCRAPER TENDER Return Visit with Luis A Charles MD [facility] ([facility]) [address] [facility] [id number] Sig: TAKE 5 MG TAB DAILY EXCEPT M/W/F OR DIRECTED Vitamin K Antagonists Failed 04/27/2018 2:14 AM Failed - INR is within goal in the past 6 weeks Confirm INR is within goal in the past 6 weeks. Recent Labs Lab Test 04/23/18 INR 2.4* Passed - Recent (12 mo) or future [...] age or older Carlos Alberto Black XRT PER TENDER documented in this encounter Plan of Treatment Upcoming Encounters Date Type Specialty Care Team Description 05/20/2022 Lab Lab documented as of this encounter Visit Diagnoses Diagnosis Acute deep vein thrombosis (DVT) of prox imal vein of both lower extremities (H) documented in this encounter Care Teams Rn Pacu Relationship Specialty Start Date End Date Froylan Louise MD PCP - General Family Practice 02/22/14 Froylan Louise MD PCP - Assigned PCP 03/13/14 08/25/18 Froylan Louise MD Assigned PCP 03/13/14 2 documented as of this encounter
--- OUTSIDE RECORDS SUMMARY | 2022-05-15 22:31 | XMS_ITS | Encounter Summary ---
:1955 Author Organization [place] Address [address] [place] [address] Care Team Providers Name Role Phone Froylan Louise MD Primary Care Provider Unavailable Froylan Louise MD Unavailable Unavailable Froylan Louise MD Unavailable Unavailable Encounter Details Date Type Department Care Team Description 04/23/2018 Anticoagulation Therapy Visit [address] [address] Social History Tobacco Use Types [...] containing 4 or more times a w [place] 05/25/2021 alcohol? How many drinks containing alcohol [...] you attend moravian or Patient refused 2020 orthodoxy services? Do [...] Progress Notes Page, Esthela Conrad RN - 04/23/2018 11:12 AM CDT ANTICOAGULATION FOLLOW-UP CLINIC VISIT Patient Name: Virgil Christine Date: 04/23/2018 Contact Type: Face to Face SUBJECTIVE: Patient Findings Positives Antibiotic use or infection Comments Possible infection from anal fistula OBJECTIVE INR Protime Date Value Ref Range Status 04/23/2018 2.4 (A) 0.86 - 1.14 Final ASSESSMENT / PLAN Pt had anal fistula surgery on 04/13 while in [place]. He has not f/u with anyone since that time. He does have colon/rectal appt her on 05/25/18. Wound has NOT been packed since surgery. Area around the surgical site is inflamed and red appears to be reaction from the bandage. Skin is very warm and area it tender to the touch. Appears to be someserosanguinous drainage on pt's under huang. No noticeable drainage from the surgical site. No odor noted. Pt is to come back at 1 pm to see UC provider for assessment. Wound covered with non adhesive dressing and paper tape. Pt expressed understanding and acceptance of the plan. Pt had no further questions at this time. Advised can call back to clinic at any time with concerns. INR assessment THER Anticoagulation Summary as of 04/23/2018 INR goal 2.0-3.0 Today's INR 2.4 Warfarin maintenance plan 5 mg (5 mg x 1) on Mon, Wed, Fri; 7.5 mg (7.5 mg x 1) all other days Full warfarin instructions 5 mg on Mon, Wed, Fri; 7.5 mg all other days Weekly warfarin total 45 mg No change documented Esthela Corea RN Plan last modified Yeimi Daniel RN (02/12/2018) Next INR check 05/07/2018 Target end date Indications Long-term (current) use of anticoagulants [Z79.01] [Z79.01] Embolism and thrombosis (H) (Resolved) [I74.9] Anticoagulation Episode Summary INR check location Preferred lab Send INR reminders to [facility] Comments See the Encounter Report to view Anticoagulation Flowsheet and Dosing Calendar (Go to Encounters tabin chart review, and find the Anticoagulation Therapy Visit) Esthela Corea RN documented in this encounter Plan of Treatment Upcoming Encounters Date Type Specialty Care Team Description 05/20/2022 Lab Lab documented as of this encounter Procedures Procedure Name Priority Date/Time Associated Diagnosis Comme nts INR POINT OF CARE Routine 04/23/2018 Results fo r this procedure are in the resu lts section. documented in this encounter Results (ABNORMAL) INR point of care (04/23/2018) P athologist Signature INR Point of 2.4 (A) 0.86 - [facility] 1.14 [facility] Specimen (Source) Anatomical Location Collection Method / Collectio n Time Received Time / Laterality Volume 04/23/2018 Froylan Louise MD LAB - BLOOD ORDERABLES Performing Organization Address City/State/ZIP Code Phon e Number [facility] [address] [place] [address] documented in this encounter Visit Diagnoses Not on filedocumented in this encounter Care Teams Hosiery Pairer Relationship Specialty Start Date End Date Froylan Louise MD PCP - General Family Practice 02/22/14 Froylan Louise MD PCP - Assigned PCP 03/13/14 08/25/18 Froylan Louise MD Assigned PCP 03/13/14 2 documented as of this encounter
--- OUTSIDE RECORDS SUMMARY | 2022-05-15 22:31 | XMS_ITS | Encounter Summary ---
:1955 Author Organization [facility] Address [address] [place] [address] Care Team Providers Name Role Phone Froylan Louise MD Primary Care Provider Unavailable Froylan Louise MD Unavailable Unavailable Froylan Louise MD Unavailable Unavailable Encounter Details Date Type Department Care Team Description 06/11/2018 Travel Social History Tobacco Use Types Packs/Day Years Used Date Smoking Tobacco: Former Cigarettes 2 25 Quit : 08/04/2006 Smokeless Tobacco: Never Comments: 2005 Alcohol Use Standard Drinks/Week Comments Yes 0 (1 standard drink = 0.6 oz pure alcoho l) 4 BEERS A WEEK Alcohol Habits Answer Date Recorded How often do you have a drink containing 4 or more times a w [place] 05/25/2021 alcohol? How many drinks containing alcohol [...] attend jehovah's witness or Patient refused 2020 buddhist services? Do [...] on filedocumented in this encounter Care Teams Superintendent Construction Relationship Specialty Start Date End Date Froylan Louise MD PCP - General Family Practice 02/22/14 Froylan Louise MD PCP - Assigned PCP 03/13/14 08/25/18 Froylan Louise MD Assigned PCP 03/13/14 2 documented as of this encounter
--- OUTSIDE RECORDS SUMMARY | 2022-05-15 22:31 | XMS_ITS | Encounter Summary ---
:1955 Author Organization [place] Address [facility] [place] [address] Care Team Providers Name Role Phone Froylan Louise MD Primary Care Provider Unavailable Froylan Louise MD Unavailable Unavailable Froylan Louise MD Unavailable Unavailable Reason for Visit Reason Onset Date Comments Refill Request 06/09/2018 triamcinolone (KENAL OG) 0.1 % external cream Encounter Details Date Type Department Care Team Description 06/09/2018 [facility] Froylan Louise Ra, Refill Request Chhaya VILLASEÑOR (triamcinolone (KENALOG) [address] [facility] 0.1 % external cream) [place] [address] Social History Tobacco Use [...] containing 4 or more times a w [place] 05/25/2021 alcohol? How many drinks containing alcohol [...] you attend mormonism or Patient refused 2020 orthodoxy services? Do [...] Telephone Encounter - Esthela Corea RN - 06/10/2018 8:40 AM CST Prescription approved per [facility] Refill Protocol. Esthela Corea RN BROKER Telephone Encounter - Thais Clifton - 06/09/2018 7:01 PM CST Requested Prescriptions Pending Prescriptions Disp Refills ??? triamcinolone (KENALOG) 0.1 % external cream [Pharmacy Med Name: TRIAMCINOLONE 0.1% CREAM] Last Written Prescription Date: 03/11/2017 Last Fill Quantity: 30 g, # refills: 1 Last office visit: 06/05/2018 with prescribing provider: Dani Future Office Visit: 30 g 0 Sig: APPLY TOPICALLY TWICE DAILY Topical Steroids and Nonsteroidals Protocol Passed - 06/09/2018 6:46 PM Passed - Patient is age 8 [...] & Orders section of the refill encounter. BROKER documented in this encounter Plan of Treatment Upcoming Encounters Date Type Specialty Care Team Description 05/20/2022 Lab Lab documented as of this encounter Visit Diagnoses Diagnosis Lichen planus documented in this encounter Care Teams Ux Visual Designer Relationship Specialty Start Date End Date Froylan Louise MD PCP - General Family Practice 02/22/14 Froylan Louise MD PCP - Assigned PCP 03/13/14 08/25/18 Froylan Louise MD Assigned PCP 03/13/14 2 documented as of this encounter
--- OUTSIDE RECORDS SUMMARY | 2022-05-15 22:31 | XMS_ITS | Encounter Summary ---
:1955 Author Organization [facility] Address [address] [place] [address] Care Team Providers Name Role Phone Froylan Louise MD Primary Care Provider Unavailable Froylan Louise MD Unavailable Unavailable Froylan Louise MD Unavailable Unavailable Encounter Details Date Type Department Care Team Description 05/25/2018 Anticoagulation Therapy Visit [address] [address] Social History Tobacco Use Types [...] you attend rastafarian or Patient refused 2020 gnosticism services? Do [...] encounter Progress Notes Wendi Lindsay RN - 05/25/2018 1:10 PM CST ANTICOAGULATION FOLLOW-UP CLINIC VISIT Patient Name: Virgil Christine Date: 05/25/2018 Contact Type: Face to Face SUBJECTIVE: Patient Findings Positives No Problem Findings OBJECTIVE INR Protime Date Value Ref Range Status 05/25/2018 3.0 (A) 0.86 - 1.14 Final ASSESSMENT / PLAN INR assessment THER Recheck INR In: 2 WEEKS INR Location Clinic Anticoagulation Summary as of 05/25/2018 INR goal 2.0-3.0 Today's INR 3.0 Warfarin maintenance plan 5 mg (5 mg x 1) on Mon, Wed, Fri; 7.5 mg (7.5 mg x 1) all other days Full warfarin instructions 5 mg on Mon, Wed, Fri; 7.5 mg all other days Weekly warfarin total 45 mg No change documented Wendi Lindsay RN Plan last modified Yeimi Daniel RN (02/12/2018) Next INR check 06/08/2018 Target end date Indications Long-term (current) use of anticoagulants [Z79.01] [Z79.01] Embolism and thrombosis (H) (Resolved) [I74.9] Anticoagulation Episode Summary INR check location Preferred lab Send INR reminders to [facility] Comments See the Encounter Report to view Anticoagulation Flowsheet and Dosing Calendar (Go to Encounters tabin chart review, and find the Anticoagulation Therapy Visit) Wendi Lindsay RN L VIAL INSPECTOR documented in this encounter Plan of Treatment Upcoming Encounters Date Type Specialty Care Team Description 05/20/2022 Lab Lab documented as of this encounter Procedures Procedure Name Priority Date/Time Associated Diagnosis Comme nts INR POINT OF CARE Routine 05/25/2018 Results fo r this procedure are in the resu lts section. documented in this encounter Results (ABNORMAL) INR point of care (05/25/2018) P athologist Signature INR Point of 3.0 (A) 0.86 - [facility] 1.14 [place] Specimen (Source) Anatomical Location Collection Method / Collectio n Time Received Time / Laterality Volume 05/25/2018 Froylan Louise MD LAB - BLOOD ORDERABLES Performing Organization Address City/State/ZIP Code Phon e Number [facility] [id number] [place] [address] documented in this encounter Visit Diagnoses Not on filedocumented in this encounter Care Teams Census Clerk Relationship Specialty Start Date End Date Froylan Louise MD PCP - General Family Practice 02/22/14 Froylan Louise MD PCP - Assigned PCP 03/13/14 08/25/18 Froylan Louise MD Assigned PCP 03/13/14 2 documented as of this encounter
--- OUTSIDE RECORDS SUMMARY | 2022-05-15 22:31 | XMS_ITS | Encounter Summary ---
:1955 Author Organization [place] Address [address] [place] [address] Care Team Providers Name Role Phone Froylan Louise MD Primary Care Provider Unavailable Froylan Louise MD Unavailable Unavailable Froylan Louise MD Unavailable Unavailable Reason for Visit Reason Onset Date Comments INR RESULTS 05/25/2018 procedure Encounter Details Date Type Department Care Team Description 05/25/2018 Telephone [facility] Froylan Louise INR RESULTS (procedure) Clinic [address] [address] [place] [address] Social History Tobacco Use Types [...] you attend shinto or Patient refused 2020 mandaen services? Do [...] Encounter - Page, Esthela Conrad RN - 05/26/2018 10:12 AM CST LM with information to hold 5 days and f/u for INR on 06/08 Esthela Corea RN GE MANAGER Telephone Encounter - Froylan Louise MD - 05/26/2018 7:25 AM CST It has been over 6 months since his last DVT with D-dimer normal last check and leg US with just chronic clot, CT clear of PE when checked. Ok to hold for 5 days for procedure. GE MANAGER Telephone Encounter - Esthela Corea RN - 05/25/2018 2:14 PM CST Per Colon Rectal surgeon would like 5 day hold of the coumadin. Esthela Corea RN GE MANAGER Telephone Encounter - Wendi Lindsay RN - 05/25/2018 1:13 PM CST Pt was in for INR appt and states that he is going to have an exploratory surgery with Dr Suazo on06/12/18 for his rectal fissure. He states he will need a 4 day hold Called Colon and Rectal. Pt is having a pouchoscopy and general exploratory for anal fissure under general anesthesia that is same day. They will call back with how many days he needs to hold. [id number], [id number]=2 Please advise if pt would need to be bridged Wendi Lindsay RN, BSN GE MANAGER documented in this encounter Plan of Treatment Upcoming Encounters Date Type Specialty Care Team Description 05/20/2022 Lab Lab documented as of this encounter Visit Diagnoses Not on filedocumented in this encounter Care Teams Fourdrinier Machine Operator Relationship Specialty Start Date End Date Froylan Louise MD PCP - General Family Practice 02/22/14 Froylan Louise MD PCP - Assigned PCP 03/13/14 08/25/18 Froylan Louise MD Assigned PCP 03/13/14 2 documented as of this encounter
--- OUTSIDE RECORDS SUMMARY | 2022-05-15 22:31 | XMS_ITS | Encounter Summary ---
:1955 Author Organization [place] Address [address] [place] [address] Care Team Providers Name Role Phone Froylan Louise MD Primary Care Provider Unavailable Froylan Louise MD Unavailable Unavailable Froylan Louise MD Unavailable Unavailable Reason for Visit Reason Onset Date Comments Refill Request 04/30/2018 Symbicort inhaler Encounter Details Date Type Department Care Team Description [facility] Ra, Refill Request Chhaya VILLASEÑOR (Symbicort inhaler) [address] [place] [address] Social History Tobacco Use [...] containing 4 or more times a w match-e-be-nash-she-wish band 05/25/2021 alcohol? How many drinks containing [...] you attend confucianism or Patient refused 2020 orthodoxy services? Do [...] this encounter Miscellaneous Notes Telephone Encounter - Yeimi Daniel RN - 04/30/2018 10:46 AM CST Patient calling requesting that his Symbicort rx be sent for 3 month supply vs monthly like his other inhaler. Advised that he still needs to follow up in 3 months. RX resent. Yeimi Daniel RN EMS DEVELOPMENT MANAGER documented in this encounter Plan of Treatment Upcoming Encounters Date Type Specialty Care Team Description 05/20/2022 Lab Lab documented as of this encounter Visit Diagnoses Diagnosis Mild persistent asthma without complicat ion Unspecified asthma documented in this encounter Care Teams Planer Off Bearer Relationship Specialty Start Date End Date Froylan Louise MD PCP - General Family Practice 02/22/14 Froylan Louise MD PCP - Assigned PCP 03/13/14 08/25/18 Froylan Louise MD Assigned PCP 03/13/14 2 documented as of this encounter
--- OUTSIDE RECORDS SUMMARY | 2022-05-15 22:31 | XMS_ITS | Encounter Summary ---
:1955 Author Organization [place] Address [address] [place] [address] Care Team Providers Name Role Phone Froylan Louise MD Primary Care Provider Unavailable Froylan Louise MD Unavailable Unavailable Froylan Louise MD Unavailable Unavailable Reason for Visit Auth/Cert Specialty Diagnoses / Procedures Referred By Contact Refer red To Contact Surgery Diagnoses [facility] Rh Periop Services Procedures PROCEDURE PLACEHOLDER COLO-RECTAL [address] [place], [place] [address] Phone: Fax: Referral ID Status Reason Start Date Expiration Date Visits Requ ested Visits Authorized [id number] 1 1 Encounter Details Date Type Department Care Team Description 06/12/2018 Surgery [facility] Chase Suazo MD Exam under anesthesia, [facility] RECTAL SURG pouchoscopy, Incision [address] and drainage of abscess. [place], [place] [address] [place] [id number] [facility] [address] [place] [address] (Wo rk) Surgery Details Date/Time Status Location OR Service Patient Case Case Traum a Class Class Type Case? 06/12/18 8:20 Posted [facility] OR OR 09 [place] Same Day AM Surgery Panel 1 Procedure LRB Anes Op Region Wound Class Commen ts Exam under anesthesia, N/A General Anus II-Clean Cont aminated pouchoscopy, Incision and drainage of abscess. POUCHOSCOPY POUCHOSCOPY N/A General Rectum II-Clean Contaminated Surgeon Surgeon Role Service Panel Chase Suazo MD Primary [place]Rect[facility] 1 Special Needs Ht 5'10, Wt 229# documented in this encounter Social History Tobacco [...] containing 4 or more times a w [place] 05/25/2021 alcohol? How many drinks containing alcohol [...] you attend taoism or Patient refused 2020 spiritism services? Do [...] Sign Reading Time Taken Comments Blood Pressure 129/88 06/12/2018 7:14 AM REFURBISH TECHNICIAN Pulse - - Temperature 36.9 ??C (98.4 ??F) 06/12/2018 7:14 AM REFURBISH TECHNICIAN Respiratory Rate 16 06/12/2018 7:14 AM REFURBISH TECHNICIAN Oxygen Saturation 98% 06/12/2018 7:14 AM REFURBISH TECHNICIAN Inhaled Oxygen Concentration - - Weight 104.1 kg (229 lb 8 oz) 06/12/2018 7:14 AM REFURBISH TECHNICIAN Height - - Body Mass Index 32.46 06/05/2018 3:03 PM REFURBISH TECHNICIAN documented in this encounter Discharge Instructions Discharge InstructionsChristopher Cain RN - 06/12/2018 10:26 AM CST GENERAL ANESTHESIA OR SEDATION ADULT DISCHARGE INSTRUCTIONS SPECIAL PRECAUTIONS FOR 24 HOURS AFTER SURGERY IT IS NOT UNUSUAL TO FEEL LIGHT-HEADED OR FAINT, UP TO 24 HOURS AFTER SURGERY OR WHILE TAKING PAIN MEDICATION. IF YOU HAVE THESE SYMPTOMS; SIT FOR A FEW MINUTES BEFORE STANDING AND HAVE SOMEONE ASSIST YOU WHEN YOU GET UP TO WALK OR USE THE BATHROOM. YOU SHOULD REST AND RELAX FOR THE NEXT 24 HOURS AND YOU MUST MAKE ARRANGEMENTS TO HAVE SOMEONE STAY WITH YOU FOR AT LEAST 24 HOURS AFTER YOUR DISCHARGE. AVOID HAZARDOUS AND STRENUOUS ACTIVITIES. DO NOTMAKE IMPORTANT DECISIONS FOR [address] ANY VEHICLE OR OPERATE MECHANICAL EQUIPMENT FOR 24 HOURS FOLLOWING THE END OF YOUR SURGERY. EVEN THOUGH YOU MAY FEEL NORMAL, YOUR REACTIONS MAY BE AFFECTED BY THE MEDICATION YOU HAVE RECEIVED. DO NOT DRINK ALCOHOLIC BEVERAGES FOR 24 HOURS FOLLOWING YOUR SURGERY. DRINK CLEAR LIQUIDS (APPLE JUICE, BARB BEN, 7-UP, BROTH, ETC.). PROGRESS TO YOUR REGULAR DIET YOU FEEL ABLE. YOU MAY HAVE A DRY MOUTH, A SORE THROAT, MUSCLES ACHES OR TROUBLE SLEEPING. THESE SHOULD GO AWAY AFTER 24 HOURS. CALL YOUR DOCTOR FOR ANY OF THE FOLLOWING: SIGNS OF INFECTION (FEVER, GROWING TENDERNESS AT THE SURGERY SITE, A LARGE AMOUNT OF DRAINAGE OR BLEEDING, SEVERE PAIN, FOUL-SMELLING DRAINAGE, REDNESS OR SWELLING. IT HAS BEEN OVER 8 TO 10 HOURS SINCE SURGERY AND YOU ARE STILL NOT ABLE TO URINATE (PASS WATER). HOME CARE FOLLOWING [facility] Jose Fong, Tran Lucas, RBeatriz Cruz???Florecita Varghese RESULTS: If a biopsy of tissue was done, you may call for your final pathology report after 1p.m. two workingdays after surgery. Your results will also be reviewed with you at your postoperative appointment. INCISIONAL CARE: ??? If you have a dressing in place, keep clean and dry for 48 hours; you may replace the gauze if it becomes soiled. ??? After 48 hours you may remove the dressing and shower. Do not submerse incision in water for 1 week. ??? If you have a Dermabond dressing (a type of skin glue), you may shower immediately. ??? Sutures which are beneath the skin will absorb and do not need to be removed. ??? Sutures you can see should be removed at your surgeon's office in 10-14 days at the latest. ??? If present, leave the steri-strips (white paper tapes) in place for 14 days after surgery. ??? If present, leave Dermabond glue in place until it wears/flakes off. ??? You may expect a small amount of drainage from your incision. ??? A lump/ridge under the incision is normal and will gradually resolve. If it becomes red or very uncomfortable, contact the nurse at your surgeon's office to discuss whether this needs to be evaluated. ACTIVITY: Cautiously resume exercise and strenuous activities such as jogging, tennis, aerobics, etc. Also, becareful of stretching activities which affect the area of surgery for two weeks. DIET: No restrictions. Increased fluid intake is recommended. While taking pain medications, increase dietary fiber or add a fiber supplementation like Metamucil or Citrucel to help prevent constipation - a possible side effect of pain medications. DISCOMFORT: Local anesthetic placed at surgery should provide relief for 4-8 hours. Begin taking pain pills before discomfort is severe. Take the pain medication with some food, when possible, to minimize side effects. Intermittent use of ice packs may help during the first 48 hours. Expect gradual improvement. You may slowly transition to use of qlhr-avo-puyvelf medications for pain relief when you are no longer requiring narcotics for pain control. RETURN APPOINTMENT: Schedule a follow-up visit 2-3 weeks post-op. Office RBISH TECHNICIAN documented in this encounter Medications at Time of Discharge Medication Sig Dispensed Refills Start Date End Date Acetaminophen (TYLENOL Take 1,000 mg by 0 8 HOUR PO) mouth 2 times daily (2 X 500 mg) albuterol (PROAIR Inhale 2 puffs into 3 Inhaler 3 8 05/26/2020 HFA/PROVENTIL the lungs every 6 HFA/VENTOLIN HFA) 108 hours as needed for (90 Base) MCG/ACT shortness of breath inhalerIndications: / dyspnea or Mild persistent asthma wheezing without complication budesonide-formoterol Inhale 2 puffs into 3 Inhaler 0 04/3008/03/2018 (SYMBICORT) 160-4.5 the lungs 2 times MCG/ACT daily InhalerIndications: Mild persistent asthma without complication cyclobenzaprine Take 1 tablet (10 30 tablet 2 06/13/2017 (FLEXERIL) 10 MG mg) by mouth 3 times tabletIndications: daily as needed for Cramp of limb muscle spasms enoxaparin (LOVENOX) 40 Inject 0.4 mLs (40 4 mL 0 05/2308/10/2018 MG/0.4ML mg) Subcutaneous syringeIndications: daily for 10 days Postthrombotic syndrome, Anticardiolipin antibody positive, Chronic deep vein thrombosis (DVT) of lower extremity, unspecified laterality, unspecified vein (H) furosemide (LASIX) 20 Take 0.5 tablets (10 90 tablet 3 05/2408/30/2018 MG tabletIndications: mg) by mouth daily Postthrombotic Take 0.5-1 tablets syndrome, Peripheral by mouth. Take as edema needed for leg swelling. loperamide (IMODIUM) 2 TAKE 3-4 CAPSULES 480 capsule 0 03/2306/19/2018 MG capsuleIndications: (6-8 MG) BY MOUTH 3 H/O ulcerative colitis TIMES DAILY NEEDED FOR DIARRHEA multivitamin w/minerals Take 1 tablet by 0 01/12/2021 (MULTI-VITAMIN) tablet mouth daily naproxen sodium 220 MG Take 440 mg by mouth 0 07/16/2018 capsule 2 times daily (with meals) order for Equipment being ordered: sport stocking 2 pair knee high 20-30 mmHg 2 Units 0 12/26/2017 01/09/2019 DMEIndications: Postthrombotic syndrome Fax to [facility] - [phone] order for Equipment being 1 Units 0 12/10/2017 9 DMEIndications: Acute ordered: compression deep vein thrombosis stockings 1 pair, (DVT) of proximal vein fit to size 20-30 of both lower mmHg extremities (H) oxyCODONE (ROXICODONE) Take 1-2 tablets 16 tablet 0 018 08/10/2018 5 MG tabletIndications: (5-10 mg) by mouth S/P colectomy every 4 hours as needed for moderate to severe pain sildenafil (VIAGRA) 50 Take 0.5-1 tablets 6 tablet 3 06/1305/25/2021 MG tabletIndications: (25-50 mg) by mouth Erectile dysfunction, daily as needed unspecified erectile dysfunction type terazosin (HYTRIN) 2 MG Take 1 capsule (2 90 capsule 1 12/1010/08/2018 capsuleIndications: mg) by mouth At Benign prostatic Bedtime hyperplasia with weak urinary stream traZODone (DESYREL) 50 Take 1-2 tablets 60 tablet 1 018 07/16/2018 MG tabletIndications: (50-100 mg) by mouth Chronic insomnia nightly as needed for sleep triamcinolone (KENALOG) APPLY TOPICALLY 30 g 0 018 12/05/2018 0.1 % external TWICE DAILY creamIndications: Lichen planus warfarin (COUMADIN) 5 5 mg on Mon, Fri, 90 tablet 0 018 07/11/2018 MG tabletIndications: Fri; 7.5 mg all Acute deep vein other days thrombosis (DVT) of proximal vein of both lower extremities (H) warfarin (COUMADIN) 7.5 TAKE 7.5 MG (ONE 7.5 30 tablet 0 07/08/2018 MG tabletIndications: MG TAB) ON MON, WED, Acute deep vein FRI. AND TAKE 5 MG thrombosis (DVT) of (ONE 5MG TAB) ON ALL proximal vein of both OTHER DAYS lower extremities (H) zolpidem (AMBIEN CR) TAKE 1 TABLET BY 30 tablet 0 8 08/04/2018 12.5 MG CR MOUTH NIGHTLY tabletIndications: NEEDED FOR SLEEP Insomnia, unspecified type documented as of this encounter Nursing Notes Mary Charles RN - 06/12/2018 11:30 AM CST Pt up pacing in room awaiting friend, Andrew. Discharge instructions gone over with Andrew. Stressed the need for an adult to stay with pt for 24 hours. Per Andrew We have this taken care of. Pt discharged. RBISH TECHNICIAN documented in this encounter Miscellaneous Notes Op Note - Chase Suazo MD - 06/12/2018 10:09 AM CST Procedure Date: 06/12/2018 PREOPERATIVE DIAGNOSES: 1. History of ulcerative colitis, status post total proctocolectomy with ileal pouch anal anastomosis. 2. 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 POSTOPERATIVE DIAGNOSES: 1. Left buttock chronic abscess cavity. 2. 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 PROCEDURES PERFORMED: 1. Examination under anesthesia. 2. Pouchoscopy. 3. Incision and drainage and debridement of chronic abscess cavity. STAFF SURGEON: Chase Suazo MD SQUEEGEER AND FORMER: Sofia Dejesus MD, [facility] Corrective Surgery fellow. ANESTHESIA: General. ESTIMATED BLOOD LOSS: 10 mL. COMPLICATIONS: None. INDICATIONS: Anita is a pleasant 62-year-old gentleman with a history of ulcerative colitis. He has undergone an ileal pouch anal anastomosis many years ago. He was referred to our clinic after there was a suspicion of a pouch perineal fistula. The [place] and had followup with the surgeon who did his pouch surgery initially. No fistula could be identified. The patient returned to our office fairly recently with new evidence of an opening in the buttock. I recommended a pouchoscopy and an examination under anesthesia to establish if there was a fistula present. The risks of surgery, including the risk of bleeding, infection, injury to the pouch and need forfurther surgery, were discussed. He wishes to proceed. DESCRIPTION OF PROCEDURE: After obtaining informed consent, the patient was brought to the operatingroom. General anesthesia was induced. The patient was intubated by the Anesthesia Service without difficulty. He was placed in the prone jackknife position on the operating room table. All pressure points were inspected and padded appropriately. A timeout was undertaken, which identified the patient and correct procedure. Inspection revealed some chronic induration of the left buttock. There is a scar in the left posterior position and an opening in the lateral to the left lateral position, both several centimeters at least 8 cm from the anal verge. The perianal skin is chronically macerated without any evidence of neoplasia. There is some hypopigmentation to the perianal skin. Digital exam noted stenosis of the anal canal consistent with his ileoanal anastomosis. The stenosis did admit my index finger to about the 2nd knuckle. We were then able to pass a pediatric endoscope into the anus and into the ileal pouch. Please see the note in the probation system for full details. The scope was then passed under direct vision into the pouch and into the efferent limb. The efferent limb appeared grossly normal without any evidence of Crohn's disease. We inspected approximately the distal 20 cm of the neoterminal ileum. The pouch was then inspected. There was a significant amountof stool within the pouch. This appeared to be a J pouch with a handsewn ileoanal anastomosis to thedentate line. The anoderm appeared to have some chronic inflammation with hypopigmentation, but no neoplasia was identified. The scope was withdrawn and the perineum was prepped and draped in the usualsterile fashion. We examined the opening in the left lateral position. This was probed with the fistula probe and it seemed to track posteriorly and away from the anus. We did open up the area where the patient had a prior opening in the left posterior position, but this did not seem to track any area. We injected hydrogen peroxide from the left lateral opening utilizing a pediatric nasal speculum within the anal canal in an attempt to visualize the pouch. It was very difficult given his long and narrow anal canal to really get a good view of the pouch from this position, but there was a hydronephrotic site noted expressed within the pouch on 1 of the 4 times we injected the external opening. We did open up this external opening by placing the fistula probe back into the wound as it tunneled laterally and posteriorly and cut down on it to open it up a bit. We excised a small portion of the skin here to allow for better drainage. The cavity of the fistula was identified and curetted out and hemostasis was attended to. Given that we felt that we had established that there indeed was a fistula but that it was felt to be quite high either into the pouch and likely above the level of the pouch anal anastomosis as we could not see any hydrogen peroxide expressed at the level of the anastomosis, wefelt that our best step now would be to image the patient with an MRI. Therefore, the procedure was t erminated and 30 mL of 0.5% Marcaine plain was infiltrated for local anesthesia. Dressing was applied. He was turned supine, awakened, extubated and transferred to the PACU in stable condition. Lap, sponge and needle counts were correct x2. CHASE SUAZO MD MT: JACY Name: ANITA CHRISTINE MRN: [id number] Account: [id number] : 1955 Procedure Date: 06/12/2018 Document: [id number] cc: Chase Suazo MD RBISH TECHNICIAN Brief Op Note - Sofia Dejesus MD - 06/12/2018 9:46 AM CST [facility] Brief Operative Note Pre-operative diagnosis: Fistula Post-operative diagnosis same Procedure: Procedure(s): Exam under anesthesia, pouchoscopy, Incision and drainage of abscess. POUCHOSCOPY Surgeon: Surgeon(s) and Role: * Chase Suazo MD - Primary * Sofia Dejesus MD - Fellow executive sales assistant Anesthesia: General Estimated blood loss: Minimal Drains: None Specimens: * No specimens in log * Findings: left anterolateral external fistula opening, unable to locate internal opening but evidence of fistula tract seen on exam with H2O2 to pouch internally. Complications: None. Implants: None. RBISH TECHNICIAN documented in this encounter Plan of Treatment Upcoming Encounters Date Type Specialty Care Team Description 05/20/2022 Lab Lab documented as of this encounter Procedures Procedure Name Priority Date/Time Associated Comments Diagnosis PROVGI - PROVATION Routine 06/12/2018 8:37 AM Res ults for this GI EXAM REFURBISH TECHNICIAN procedure are i n the results section. ENDOSCOPY, POUCH, 06/12/2018 8:37 AM Fistula DIAGNOSTIC REFURBISH TECHNICIAN Special Needs Ht 5'10, Wt 229# EXAM UNDER ANESTHESIA, RECTUM 06/12/2018 8:37 AM REFURBISH TECHNICIAN F istula Special Needs Ht 5'10, Wt 229# documented in this encounter Results PROVGI - PROVATION GI EXAM (06/12/2018 8:37 AM REFURBISH TECHNICIAN) [facility] Method Time Signature PROVGI [facility] RADIO LOGY RESULTS Patient Name: Anita Christine ? Proce dure Date: 06/12/2018 8:37 AM ? Accou nt Number: [id number] Date of : 1955 ?Admit Type: Out patient Age: 62 ? Gender: Male Attending MD: Chase Suazo MD ?Total Sedation Time: Instrument Name: 217 - Pediatric Colonoscope Procedure: ?Pouchoscopy Indications: ?History of total proctocolectomy, suspected pouch ?to perineal fistula Providers: ?Chase Suazo MD (Docto r) Referring MD: ? Medicines: ?General Anesthesia Complications: ?No immediate complications. Procedure: ?Pre-Anesthesia Assessment: [...] were verified by the physician ?in the pre-procedure area. Mental Status ?E xamination: alert and oriented. Airway ?Examination: normal oropharyngeal airway and neck ?mobility. Respiratory Examination: clear to ?auscultation. CV Examination: normal. Prophylactic ?Antibiotics: The patient does not require ?prophylactic antibiotics. Prior Anticoagulants: The ?patient has taken no previous anticoagulant or ?antiplatelet agents. ASA Grade Assessment: II - A ?patient with mild systemic disease. After reviewing ?the risks and benefits, the patient was deemed in ?satisfactory condition to undergo the procedure. ?The anesthesia plan was to use general anesthesia. ?Immediately prior to administration of medications, ?the patient was re-assessed for adequacy to receive ?sedatives. The heart rate, respiratory rate, oxygen ?saturations, blood pressure, adequacy of pulmonary ?ventilation, and response to care were monitored ?throughout the procedure. The physical status of ?the patient was re-assessed after the procedure. ?After obtaining informed consent, the endoscope was ?passed under direct vision. Throughout the ?procedure, the patient's blood pressure, pulse, and ?oxygen saturations were monitored continuously. The ?Olympus Pediatric Colonoscope, Model # [id number]-H190DL, ?[place]ora # 217, SN # [id number] was introduced through ?the ileoanal anastomosis via the anus and advanced ?to the ileoanal pouch and into the kandace-terminal ?ileum. The procedure was performed without ?difficulty. The patient tolerated the procedure ?well. The quality of the bowel preparation was poor. ? Findings: ? The perianal exam findings include a perianal rash. ? The digital rectal exam findings include anal strictu re. ? The kandace-terminal ileum appeared normal. ? A large amount of stool was found in the ileoanal p ouch, interfering ? with visualization. ? No obvious abnormalities of the pouch and the mucosa, where visualized ? was grossly normal. The anastomosis appea rs to be a hand swen ileoanal ? anastomosis to the dentate line. The anoderm an d the perianal skin is ? significantly macerated. ? Impression: ? - Preparation of the bowel was poor. ?- Perianal rash found on perianal exam. ?- Anal stricture found on digital rectal exam. ?- The examined portion of the ileum was normal. ?- Stool in the ileoan al pouch. ?- No specimens collegalen preciado. Recommendation: ? - Return to my office at the next available ?appointment. ? Procedure Code(s): ? --- Professional --- ? 64606, Endoscopic evaluation of s mall intestinal pouch (eg, Kock pouch, ? ileal reservoir [S or J]); diagnostic, including kashmir ection of ? specimen(s) by brushing or washin g, when performed (separate procedure) Diagnosis Code(s): ? --- Professional --- ? Z90.49, Acquired absence of other specified parts o f digestive tract ? K62.4, Stenosis of anus and rectum ? R21, Rash and other nonspecific skin eruption CPT copyright 2017 [employer]. All rights reserved. The codes documented in this report are prelimin dillon and upon telephone sales agent review may be revised to meet current compliance requirements. Chase Suazo MD 06/12/2018 9:51:08 AM I was physically present for the entire viewing portion of t he exam. Chase Suazo MD Number of Addenda: 0 Note Initiated On: 06/12/2018 8:37 AM MRN: ?[id number] Procedure Date: ? 06/12/2018 8:37:02 AM Total Procedure Duration: 0 hours 3 minutes 50 seconds Estimated Blood Loss: ? Scope In: 9:05:18 AM Scope Out: 9:09:08 AM Specimen (Source) Anatomical Collection Method Collection Time Re ceived Time Location / / Volume Laterality 06/12/2018 8:37 AM REFURBISH TECHNICIAN Chase Suazo MD PROCEDURES Performing Organization Address City/State/ZIP Code Phon e Number RADIOLOGY RESULTS documented in this encounter Visit Diagnoses Not on filedocumented in this encounter Administered Medications Inactive Administered Medications - up to 3 most recent administrations Medication Order MAR Action Action Date Dose Rate Site acetaminophen (TYLENOL) tablet 975 Given 06/12/2018 7:39 AM REFURBISH TECHNICIAN 975 mg mg 975 mg, Oral, ONCE, On Fri06/12/18 at 0715, For 1 dose, IF acetaminophen (TYLENOL) not already order by Anesthesia. Maximum acetaminophen dose from all sources = 75 mg/kg/day not to exceed 4 grams/day., Pre-procedure bacitracin ointment Given 06/12/2018 10:19 AM REFURBISH TECHNICIAN 1 g Othe r (see comments) PRN, Starting on Fri06/12/18 at 1019, Intra-procedure bupivacaine (MARCAINE) 0.5% preservative free Given 9:40 AM REFURBISH TECHNICIAN 30 mLs injection PRN, Starting on Fri06/12/18 at 0940, Intra-procedure dimenhyDRINATE (DRAMAMINE) injection 25 mg 25 mg, Intravenous, ONCE PRN, other, chris sea, Starting on Fri06/12/18 at 0946, For 1 dose, Dilute in 10 ml 0.9% Sodium chloride., PACU/Ph ase II fentaNYL (PF) (SUBLIMAZE) injection 25-5 0 mcg 25-50 mcg, Intravenous, EVERY 15 MIN PRN, other, acute pain while in Phase II, Starting on Fri06/12/18 at 0945, Indica tions: Sedated State, MAX cumulative dose = 250 mcg. Use Fentanyl initially, as a sh ort acting agent for acute pain control. If insufficient, or a longer acting agent i s needed, begin Morphine or Hydromorphone if ordered. For ordered IV doses 1-100 m cg give IV Push undiluted over a minimum of 3-5 minutes., Phase ll HYDROmorphone (DILAUDID) injection 0.3-0 .5 mg 0.3-0.5 mg, Intravenous, EVERY 10 MIN MA N, other, acute pain.?May administer if Respiratory Rate is greater than 10, Sta rting on Fri06/12/18 at 0946, If fentanyl is also ordered, use HYDROmorphone if pa in control insufficient with fentanyl or a longer acting agent is needed. Max cumulative dose = 2 mg, PACU/Phase II lactated ringers infusion at 100 mL/hr, Intravenous, CONTINUOUS, Continue until IV catheter is weaned, PACU/Phase II, Starting on Fri06/12/18 at 1000, Until Fri06/12/18 at 1430 meperidine (DEMEROL) injection 12.5 mg 12.5 mg, Intravenous, EVERY 15 MIN PRN, post anesthesia shivering, Starting on Fri06/12/18 at 0946, For 2 doses, Give IV P ush undiluted. 10-40 mg over 2-3 minutes, up to 125 mg over 3-15 minutes, PACU/Phase II naloxone (NARCAN) injection 0.1-0.4 mg 0.1-0.4 mg, Intravenous, EVERY 2 MIN PRN , opioid reversal, Starting on Fri06/12/18 at 0946, For 24 hours, For apnea or imminent respirato ry arrest: give 0.4 mg IV undiluted Q 2 minutes PRN until desired degree of reversal is obtained, stop opioid and notify provider. Continue monitoring until dischar ge are criteria met for a minimum of 2 hours. For severe sedation, decrease in respiratory depth, quality or Respiratory Rate greater than 8: give 0. 1 mg IV Q 2 minutes x 3 doses, stop opioid and notify provider. Try to minimize reversal of analg esia especially in end-of-life patients. Continue monitorin g until discharge criteria are met for a minimum of 2 hours. For ordered IV doses 0.1-2mg give IVP. Give each 0.4mg over 15 seconds in emergency situations. For non -emergent situations further dilute in 9mL of NS to facilitate titration of response., PACU/Phase II ondansetron (ZOFRAN) injection 4 mg 4 mg, Intravenous, EVERY 30 MIN PRN, chris sea, vomiting, Administer over 2-5 Minutes, Starting on Fri06/12/18 at 0946, For 2 doses, MAX total dose = 8 mg, including OR dosing. This is step 1 of nausea and vomiting manageme nt. If not resolved in 15 minutes, then go to step 2 [prochlorpera zine (COMPAZINE) if ordered]. Irritant. For ordered IV doses 0.1-4 mg, give IV Push undiluted over 2-5 minutes., PACU/Phase II ondansetron (ZOFRAN-ODT) ODT tab 4 mg 4 mg, Oral, EVERY 30 MIN PRN, nausea, vo miting, Starting on Fri06/12/18 at 0946, For 2 doses, MAX total dose = 8 mg, incl uding OR dosing. This is step 1 of nausea and vomiting management. If not resolved in 15 minutes , then go to step 2 [prochlorperazine (COMPAZINE) if ordered ]. With dry hands, peel back foil backing and gently remove tablet; do not push oral disintegrat ing tablet through foil backing; administer immediately on tongu e and oral disintegrating tablet dissolves in seconds; then swallow with saliva; liquid not requi red., PACU/Phase II ORAL Pain Medications - may administer a s ordered by surgeon for take home use CONTINUOUS PRN, Starting on Fri06/12/18 at 0946, Until Fri06/12/18 at 1430, May administer oral pain medications as ordered by surgeon for take home use. Discontinue IV pain medication prior to administration of oral pain medication., PACU/Phase II documented in this encounter Active and Recently Administered Medications Times are shown in REFURBISH TECHNICIAN. Scheduled Medication Order 06/10/2018 06/11/2018 06/12/2018 acetaminophen (TYLENOL) tablet 975 mg (COMPLETED) 0739 (Given - Provider: Ashanti Yu RN) 975 mg, Oral, ONCE, Fri06/12/18 at 0715 , For 1 dose, IF acetaminophen (TYLENOL) not already order by Anesthesia. Maximum acetaminophen dose from all sources = 75 mg/kg/day not to exceed 4 grams/day., Pre-procedure Continuous Medication Order 06/10/2018 06/11/2018 06/12/2018 lactated ringers infusion (CANCELED) 0847 (New Bag - Provider: Ramy Strange APRN LOOKBACK COORDINATOR)0930 (New Bag - Provider: Ramy Strange APRN LOOKBACK COORDINATOR)0945 (Stopped - Provider: Ramy Strange APRN LOOKBACK COORDINATOR) at 25 mL/hr, Intravenous, CONTINUOUS, IF patient NOT on dialysis., Pre- procedure, Starting Fri06/12/18 at 0715, Until Fri06/12/18 at 0951 lactated ringers infusion 1000 ( Canceled Entry - Provider: Orders Generic Provider - Comment: Automatically canceled at discontinue of medication order) at 100 mL/hr, Intravenous, CONTINUOUS, C ontinue until IV catheter is weaned, PACU/Phase II, Starting Fri06/12/18 at 1000, Until Fri06/12/18 at 1430 PRN Medication Order 06/10/2018 06/11/2018 06/12/2018 bacitracin ointment (CANCELED) 1 019 (Given - Provider: Arminda Escobedo RN - Comment: bilateral cheeks) PRN, Starting Fri06/12/18 at 1019, Intra-procedure bupivacaine (MARCAINE) 0.5% preservative free injection (CANCELE D) 0940 (Given - Provider: Chase Suazo MD) PRN, Starting Fri06/12/18 at 0940, Intra-procedure dimenhyDRINATE (DRAMAMINE) injection 25 mg 25 mg, Intravenous, ONCE PRN, other, chris sea, Starting Fri06/12/18 at 0946, For 1 dose, Dilute in 10 ml 0.9% Sodium chloride., PACU/Phase II fentaNYL (PF) (SUBLIMAZE) injection 25-50 mcg 25-50 mcg, Intravenous, EVERY 15 MIN PRN , Starting Fri06/12/18 at 0945, other, acute pain while in Phase II, MAX cumulative dose = 250 mcg. Use Fentanyl initially, as a short acting agent for acute na n control. If insufficient, or a longer acting agent is needed, begin Morphine or Hydromorphone if ordered. For ordered IV doses 1-100 mcg give IV Push undiluted over a minimum of 3-5 minutes., Phase ll HYDROmorphone (DILAUDID) injection 0.3-0.5 mg 0.3-0.5 mg, Intravenous, EVERY 10 MIN MA N, Starting Fri06/12/18 at 0946, Until Fri06/12/18 at 1430, other, acute pain.?May administer if Respiratory Rate is greater than 10, PACU/Phase II, If fenta nyl is also ordered, use HYDROmorphone i f pain control insufficient with fentanyl or a longer acting agent is needed. Max cumulative dose = 2 mg meperidine (DEMEROL) injection 12.5 mg 12.5 mg, Intravenous, EVERY 15 MIN PRN, 2 doses, Starting Fri06/12/18 at 0946, Until Fri06/12/18 at 1430, post anesthesia shivering, PACU/Phase II, Give IV Push undiluted. 10-40 mg over 2-3 minutes, up to 125 mg over 3-15 minutes naloxone (NARCAN) injection 0.1-0.4 mg 0.1-0.4 mg, Intravenous, EVERY 2 MIN PRN , opioid reversal, Starting Fri06/12/18 at 0946, For 24 hours, For apnea or imminent respiratory arrest: give 0.4 mg IV undiluted Q 2 minutes PRN until desired d egree of reversal is obtained, stop opio id and notify provider. Continue monitoring until discharge are criteria met for a minimum of 2 hours. For severe sedation, decrease in respiratory depth, quality or Respiratory Rate greater than 8: giv e 0.1 mg IV Q 2 minutes x 3 doses, stop opioid and notify provider. Try to minimize reversal of analgesia especially in end-of-life patients. Continue monitoring until discharge criteria are met for a m inimum of 2 hours. For ordered IV doses 0.1-2mg give IVP. Give each 0.4mg over 15 seconds in emergency situations. For non-emergent situations further dilute in 9 mL of NS to facilitate titration of response., PACU/Phase II ondansetron (ZOFRAN) injection 4 mg(Linked Group 1) 4 mg, Intravenous, EVERY 30 MIN PRN, chris sea, vomiting, Administer over 2-5 Minutes, Starting Fri06/12/18 at 0946, For 2 doses, MAX total dose = 8 mg, including OR dosing. This is step 1 of nausea and v omiting management. If not resolved in 1 5 minutes, then go to step 2 [prochlorperazine (COMPAZINE) if ordered]. Irritant. For ordered IV doses 0.1-4 mg, give IV Push undiluted over 2-5 minutes., PACU/Phase II ondansetron (ZOFRAN-ODT) ODT tab 4 mg(Linked Group 1) 4 mg, Oral, EVERY 30 MIN PRN, nausea, vo miting, Starting Fri06/12/18 at 0946, For 2 doses, MAX total dose = 8 mg, including OR dosing. This is step 1 of nausea and vomiting management. If not resolved in 15 minutes, then go to step 2 [prochl orperazine (COMPAZINE) if ordered]. With dry hands, peel back foil backing and gently remove tablet; do not push oral disintegrating tablet through foil backing; administer immediately on tongue and ora l disintegrating tablet dissolves in seconds; then swallow with saliva; liquid not required., PACU/Phase II ORAL Pain Medications - may administer as ordered by surgeon for take home use CONTINUOUS PRN, Starting Fri06/12/18 at 0946, Until Fri06/12/18 at 1430, May administer oral pain medications as ordered by surgeon for take home use. Discontinue IV pain medication prior to administration of oral pain medication., PACU/Phase II Linked Groups Order Group 1: ondansetron (ZOFRAN-ODT) ODT tab 4 mgJump to med 4 mg, Oral, EVERY 30 MIN PRN, nausea, vo miting, Starting Fri06/12/18 at 0946, For 2 doses
MAX total dose = 8 mg, including OR dosing. This is step 1 of nausea and vomiting management.&nbsp ; If not resolved in 15 minutes, th en go to step 2 [prochlorperazine (COMPAZINE) if ordered]. With dry hands, peel back foil backing and gently remove tablet; do not push oral disinteg rating tablet through foil backing; admi nister immediately on tongue and oral disintegrating tablet dissolves in seconds; then swallow with saliva; liquid not required.
PACU/Phase II Or ondansetron (ZOFRAN) injection 4 mgJump to med 4 mg, Intravenous, EVERY 30 MIN PRN, chris sea, vomiting, Administer over 2-5 Minutes, Starting Fri06/12/18 at 0946, For 2 doses
MAX total dose = 8 mg, including OR dosing. This is step 1 of naus ea and vomiting management. I f not resolved in 15 minutes, then go to step 2 [prochlorperazine (COMPAZINE) if ordered]. Irritant. For ordered IV doses 0.1-4 mg, give IV Push undiluted over 2-5 minutes.
PACU/Phase II documented in this encounter Care Teams Cable Television Program Director Relationship Specialty Start Date End Date Froylan Louise MD PCP - General Family Practice 02/22/14 Froylan Louise MD PCP - Assigned PCP 03/13/14 08/25/18 Froylan Louise MD Assigned PCP 03/13/14 2 documented as of this encounter
--- OUTSIDE RECORDS SUMMARY | 2022-05-15 22:31 | XMS_ITS | Encounter Summary ---
:1955 Author Organization [place] Address [address] [place] [address] Care Team Providers Name Role Phone Froylan Louise MD Primary Care Provider Unavailable Froylan Louise MD Unavailable Unavailable Froylan Louise MD Unavailable Unavailable Encounter Details Date Type Department Care Team Description 05/11/2018 Anticoagulation Therapy Visit [address] [address] Social History Tobacco Use Types [...] containing 4 or more times a w [place] 05/25/2021 alcohol? How many drinks containing alcohol [...] you attend voodoo or Patient refused 2020 roman catholic services? 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 He wasadvised with last INR check to have this evaluated by a provider and came to the but left withoutbeing seen. He has not follow up since. He does have an appt on 05/25/18 with colon and rectal but ishaving drainage and blood coming from 2 different areas. Offered an appt at clinic today or with or another clinic but pt declined. He is going to call colon and rectal to see if they can see himsooner with the new formation and infection concerns. Pt was strongly encouraged to be seen but expressed some discontent in doing so. Advised that infection can lead to sepsis which can lead to hospita lization and . Pt expressed understanding but declined appt today. Advised to eat some green today as he has not been doing so OBJECTIVE INR Protime Date Value Ref Range Status 05/11/2018 3.4 (A) 0.86 - 1.14 Final ASSESSMENT / PLAN INR assessment SUPRA Recheck INR In: 2 WEEKS INR Location Clinic Anticoagulation Summary as of 05/11/2018 INR goal 2.0-3.0 Today's INR 3.4! Warfarin maintenance plan 5 mg (5 mg x 1) on Mon, Wed, Fri; 7.5 mg (7.5 mg x 1) all other days Full warfarin instructions 5 mg on Mon, Wed, Fri; 7.5 mg all other days Weekly warfarin total 45 mg No change documented Wendi Lindsay RN Plan last modified Yeimi Daniel RN (02/12/2018) Next INR check 05/25/2018 Target end date Indications Long-term (current) use of anticoagulants [Z79.01] [Z79.01] Embolism and thrombosis (H) (Resolved) [I74.9] Anticoagulation Episode Summary INR check location Preferred lab Send INR reminders to [facility] TRIAGE Comments See the Encounter Report to view Anticoagulation Flowsheet and Dosing Calendar (Go to Encounters tabin chart review, and find the Anticoagulation Therapy Visit) Wendi Lindsay RN EGE TEACHER documented in this encounter Plan of Treatment Upcoming Encounters Date Type Specialty Care Team Description 05/20/2022 Lab Lab documented as of this encounter Procedures Procedure Name Priority Date/Time Associated Diagnosis Comme nts INR POINT OF CARE Routine 05/11/2018 Results fo r this procedure are in the resu lts section. documented in this encounter Results (ABNORMAL) INR point of care (05/11/2018) P athologist Signature INR Point of 3.4 (A) 0.86 - [facility] 1.14 [facility] Specimen (Source) Anatomical Location Collection Method / Collectio n Time Received Time / Laterality Volume 05/11/2018 Froylan Louise MD LAB - BLOOD ORDERABLES Performing Organization Address City/State/ZIP Code Phon e Number [facility] [id number] [place] [address] documented in this encounter Visit Diagnoses Not on filedocumented in this encounter Care Teams Wetland Scientist Relationship Specialty Start Date End Date Froylan Louise MD PCP - General Family Practice 02/22/14 Froylan Louise MD PCP - Assigned PCP 03/13/14 08/25/18 Froylan Louise MD Assigned PCP 03/13/14 2 documented as of this encounter
--- OUTSIDE RECORDS SUMMARY | 2022-05-15 22:31 | XMS_ITS | Encounter Summary ---
:1955 Author Organization [place] Address [facility] [address] Care Team Providers Name Role Phone Froylan Louise MD Primary Care Provider Unavailable Froylan Louise MD Unavailable Unavailable Froylan Louise MD Unavailable Unavailable Reason for Visit Auth/Cert Specialty Diagnoses / Procedures Referred By Contact Refer red To Contact Surgery Diagnoses Fistula Rh Periop Services Procedures PROCEDURE PLACEHOLDER COLO-RECTAL [address] [place], [place] [address] Phone: Fax: Referral ID Status Reason Start Date Expiration Date Visits Requ ested Visits Authorized [id number] 1 1 Encounter Details Date Type Department Care Team Description 06/12/2018 Hospital Encounter [facility] Chase Suazo S/P colectomy [place] PreOP/PostOP MD Chast[place] (Primary Dx) [address] COLON RECTAL [place], [place] [facility] [address] [address] [facility] [phone] [address] Social History Tobacco Use Types Packs/Day Years [...] you attend bahai or Patient refused 2020 zoroastrianism services? Do you belong to any clubs or Yes 05/25/2021 organizations such as bahai groups, unions, fraSnapstream or athletic groups, or school groups? How [...] Sign Reading Time Taken Comments Blood Pressure 148/88 06/12/2018 11:39 AM MARZIPAN MAKER Pulse 57 06/12/2018 10:20 AM MARZIPAN MAKER Temperature 36.8 ??C (98.2 ??F) 06/12/2018 11:39 AM MARZIPAN MAKER Respiratory Rate 16 06/12/2018 11:39 AM MARZIPAN MAKER Oxygen Saturation 100% 06/12/2018 11:39 AM MARZIPAN MAKER Inhaled Oxygen Concentration - - Weight 104.1 kg (229 lb 8 oz) 06/12/2018 7:14 AM MARZIPAN MAKER Height - - Body Mass Index 32.46 06/05/2018 3:03 PM MARZIPAN MAKER documented in this encounter Discharge Instructions Discharge [...] FOLLOWING [facility] SURG[facility] Jose Fong, Tran Lucas, R. Nancy???Florecita Varghese RESULTS: If a biopsy of tissue [...] You may slowly transition to use of waqv-lvy-rxixlsv medications for pain relief when you are no longer requiring narcotics for pain control. RETURN APPOINTMENT: Schedule a follow-up visit 2-3 weeks post-op. Office IPAN MAKER documented in this encounter Medications at Time [...] 12/26/2017 01/09/2019 DMEIndications: Postthrombotic syndrome Fax to [facility] - [phone] order for Equipment being 1 Units 0 [...] warfarin (COUMADIN) 5 5 mg on Mon, Wed, 90 tablet 0 018 07/11/2018 MG tabletIndications: [...] have this taken care of. Pt discharged. IPAN MAKER documented in this encounter Miscellaneous Notes Op [...] abscess cavity. STAFF SURGEON: Chase Suazo MD CONDITIONING MACHINE OPERATOR: Sofia Dejesus MD, [facility] Corrective Surgery fellow. ANESTHESIA: General. ESTIMATED [...] SUAZO MD MT: JACY Name: ANITA CHRISTINE Account: [id number] : 1955 Procedure Date: 06/12/2018 Document: [id number] cc: Chase Suazo MD IPAN MAKER Brief Op Note - Sofia Dejesus MD - 06/12/2018 9:46 AM CST [facility] Brief Operative Note Pre-operative diagnosis: Fistula Post-operative diagnosis same Procedure: Procedure(s): Exam under anesthesia, pouchoscopy, Incision and drainage of abscess. POUCHOSCOPY Surgeon: Surgeon(s) and Role: * Chase Suazo MD - Primary * Sofia Dejesus MD - Fellow program support assistant Anesthesia: General Estimated blood loss: Minimal Drains: None Specimens: * No specimens in log * Findings: left anterolateral external fistula opening, unable to locate internal opening but evidence of fistula tract seen on exam with H2O2 to pouch internally. Complications: None. Implants: None. IPAN MAKER documented in this encounter Plan of Treatment Upcoming Encounters Date Type Specialty Care Team Description 05/20/2022 Lab Lab documented as of this encounter Procedures Procedure Name Priority Date/Time Associated Comments Diagnosis PROVGI - PROVATION Routine 06/12/2018 8:37 AM Res ults for this GI EXAM MARZIPAN MAKER procedure are i n the results section. ENDOSCOPY, POUCH, 06/12/2018 8:37 AM Fistula DIAGNOSTIC MARZIPAN MAKER Special Needs Ht 5'10, Wt 229# EXAM UNDER ANESTHESIA, RECTUM 06/12/2018 8:37 AM MARZIPAN MAKER F istula Special Needs Ht 5'10, Wt 229# documented in this encounter Results PROVGI - PROVATION GI EXAM (06/12/2018 8:37 AM MARZIPAN MAKER) [facility] Method Time Signature PROVGI [facility] RADIO LOGY RESULTS Patient Name: Anita Christine ? Rayne valencia Date: 06/12/2018 8:37 AM ? Accou nt Number: [id number] Date of : 1955 ?Admit Type: Out [...] # [id number], ?[place] # [id number], SN # [id number] was introduced through ?the ileoanal anastomosis via [...] the ileoan al pouch. ?- No specimens collec ilana. Recommendation: ? - Return to my office at the next available ?appointment. ? Procedure Code(s): ? --- Professional --- ? 08962, Endoscopic evaluation of s mall intestinal pouch [...] other nonspecific skin eruption CPT copyright 2017 [employer]. All rights reserved. The codes documented in this report are prelimin dillon and upon dog pound attendant review may be revised to meet current compliance requirements. Chase Suazo MD 06/12/2018 9:51:08 AM I was physically present for the entire viewing portion of t he exam. Chase Suazo MD Number of Addenda: 0 Note Initiated On: 06/12/2018 8:37 AM MRN: ?[id number] Procedure Date: ? 06/12/2018 8:37:02 AM Total Procedure Duration: 0 hours 3 minutes 50 seconds Estimated Blood Loss: ? Scope In: 9:05:18 AM Scope Out: 9:09:08 AM Specimen (Source) Anatomical Collection Method Collection Time Re ceived Time Location / / Volume Laterality 06/12/2018 8:37 AM MARZIPAN MAKER Chase Suazo MD PROCEDURES Performing Organization Address City/State/ZIP Code Phon e Number RADIOLOGY RESULTS documented in this encounter Visit Diagnoses Diagnosis S/P colectomy - Primary Other postprocedural status documented in this encounter Administered Medications Inactive Administered Medications - up to 3 most recent administrations Medication Order MAR Action Action Date Dose Rate Site acetaminophen (TYLENOL) tablet 975 Given 06/12/2018 7:39 AM MARZIPAN MAKER 975 mg mg 975 mg, Oral, ONCE, On Fri06/12/18 at 0715, For 1 dose, IF acetaminophen (TYLENOL) not already order by Anesthesia. Maximum acetaminophen dose from all sources = 75 mg/kg/day not to exceed 4 grams/day., Pre-procedure dimenhyDRINATE (DRAMAMINE) injection 25 mg 25 mg, [...] mg 0.3-0.5 mg, Intravenous, EVERY 10 MIN NE N, other, acute pain.?May administer if Respiratory [...] Recently Administered Medications Times are shown in MARZIPAN MAKER. Scheduled Medication Order 06/10/2018 06/11/2018 06/12/2018 acetaminophen [...] (New Bag - Provider: Ramy Strange APRN CRNA)0930 (New Bag - Provider: Ramy Strange APRN CRNA)0945 (Stopped - Provider: Ramy Strange APRN CRNA) at 25 mL/hr, Intravenous, CONTINUOUS, IF patient [...] mg 0.3-0.5 mg, Intravenous, EVERY 10 MIN NE N, Starting Fri06/12/18 at 0946, Until Fri06/12/18 [...] II documented in this encounter Care Teams Government Services Professional Relationship Specialty Start Date End Date Froylan Louise MD PCP - General Family Practice 02/22/14 Froylan Louise MD PCP - Assigned PCP 03/13/14 08/25/18 Froylan Louise MD Assigned PCP 03/13/14 2 documented as of this encounter
--- OUTSIDE RECORDS SUMMARY | 2022-05-15 22:31 | XMS_ITS | Encounter Summary ---
:1955 Author Organization [place] Address [address] [place] [address] Care Team Providers Name Role Phone Froylan Louise MD Primary Care Provider Unavailable Froylan Louise MD Unavailable Unavailable Froylan Louise MD Unavailable Unavailable Reason for Visit Reason Onset Date Comments Medication Request 06/11/2018 Encounter Details Date Type Department Care Team Description 06/11/2018 Telephone [facility] Froylan Louise Ra, Medication Request Chh[facility] [address] [address] [place] [address] Social History Tobacco Use [...] containing 4 or more times a w [place] 05/25/2021 alcohol? How many drinks containing alcohol [...] you attend judaism or Patient refused 2020 taoist services? Do [...] Encounter - Page, Esthela Conrad RN - 06/12/2018 12:42 PM CST He did not take lovenox last night and was going to call and f/u after procedure to let us know if he has night sweats while not taking the Lovenox. This was discussed with pt at INR appt yesterday Esthela Corea RN ITURE SERVICER Telephone Encounter - Isabel Alberto PA-C - 06/12/2018 12:24 PM CST He should probable follow-up with office visit to make sure nothing else is going on if this continues . dont see that as a side effect to lovenox ITURE SERVICER Telephone Encounter - Wendi Lindsay RN - 06/11/2018 10:02 AM CST Pt calling stating since starting the lovenox the last 2 days ago he has been waking up drenched in sweat and wondering if this is normal. He has been on lovenox in the past and didn't have this. Please advise Wendi Lindsay RN, BSN ITURE SERVICER documented in this encounter Plan of Treatment Upcoming Encounters Date Type Specialty Care Team Description 05/20/2022 Lab Lab documented as of this encounter Visit Diagnoses Not on filedocumented in this encounter Care Teams Passenger Barge Master Relationship Specialty Start Date End Date Froylan Louise MD PCP - General Family Practice 02/22/14 Froylan Louise MD PCP - Assigned PCP 03/13/14 08/25/18 Froylan Louise MD Assigned PCP 03/13/14 2 documented as of this encounter
--- OUTSIDE RECORDS SUMMARY | 2022-05-15 22:31 | XMS_ITS | Encounter Summary ---
:1955 Author Organization [place] Address [address] [place] [address] Care Team Providers Name Role Phone Froylan Louise MD Primary Care Provider Unavailable Froylan Louise MD Unavailable Unavailable Froylan Louise MD Unavailable Unavailable Encounter Details Date Type Department Care Team Description 06/01/2018 Travel Social History Tobacco Use Types Packs/Day [...] you attend presybeterian or Patient refused 2020 latter-day services? Do [...] on filedocumented in this encounter Care Teams Photocomposing Keyboard Operator Relationship Specialty Start Date End Date Froylan Louise MD PCP - General Family Practice 02/22/14 Froylan Louise MD PCP - Assigned PCP 03/13/14 08/25/18 Froylan Louise MD Assigned PCP 03/13/14 2 documented as of this encounter
--- OUTSIDE RECORDS SUMMARY | 2022-05-15 22:31 | XMS_ITS | Encounter Summary ---
:1955 Author Organization [facility] Address [address] [place] [address] Care Team Providers Name Role Phone Froylan Louise MD Primary Care Provider Unavailable Froylan Louise MD Unavailable Unavailable Froylan Louise MD Unavailable Unavailable Reason for Visit Reason Comments Pre-Op Exam Encounter Details Date Type Department Care Team Description 06/05/2018 Office Visit [facility] Froylan Louise Preop gen eral physical exam (Primary Dx); Clinic Chhaya Dubose MD Postthrombotic syndrome; [id number] [facility] Anticardiolipin antibody pos itive; [place], [place] Chronic deep v ein thrombosis (DVT) of lower extremity, unspecified laterality, unspecified vein (H) [id number] Social History Tobacco Use Types Packs/Day [...] or relatives? How often do you attend sikh or Patient refused 2020 jainism services? Do you belong to any clubs or Yes 05/25/2021 organizations such as sikh groups, unions, fraternal or athletic groups, or [...] Sign Reading Time Taken Comments Blood Pressure 128/78 06/05/2018 3:03 PM ASSOCIATE DATA SCIENTIST Pulse 78 06/05/2018 3:03 PM ASSOCIATE DATA SCIENTIST Temperature 36.9 ??C (98.5 ??F) 06/05/2018 3:03 PM ASSOCIATE DATA SCIENTIST Respiratory Rate 16 06/05/2018 3:03 PM ASSOCIATE DATA SCIENTIST Oxygen Saturation 98% 06/05/2018 3:03 PM ASSOCIATE DATA SCIENTIST Inhaled Oxygen Concentration - - Weight 102.1 kg (225 lb) 06/05/2018 3:03 PM ASSOCIATE DATA SCIENTIST Height 179.1 cm (5' 10.5) 06/05/2018 3:03 PM ASSOCIATE DATA SCIENTIST Body Mass Index 31.83 06/05/2018 3:03 PM ASSOCIATE DATA SCIENTIST documented in this encounter Patient Instructions Patient InstructionsBerto Daniel, INSURANCE SALES SPECIALIST - 06/05/2018 3:00 PM CST Before Your Surgery ??? Call your surgeon if there is any change in your health. This includes signs of a cold or flu (such as a sore throat, runny nose, cough, rash or fever). ??? Do not smoke, drink alcohol or take over the counter medicine (unless your surgeon or primary care doctor tells you to) for the 24 hours before and after surgery. ??? If you take prescribed drugs: Follow your doctor???s orders about which medicines to take and which to stop until after surgery. ??? Eating and drinking prior to surgery: follow the instructions from your surgeon ??? Take a shower or bath the night before surgery. Use the soap your surgeon gave you to gently clean your skin. If you do not have soap from your surgeon, use your regular soap. Do not shave or scrubthe surgery site. Wear clean pajamas and have clean sheets on your bed. Stop coumadin 5 days prior to surgery. (06/07/18) Start lovenox 3 days prior to surgery. Check INR 1 day prior to surgery to make sure <1.5. (06/09/18) Take last pre-operative lovenox dose 24 hours prior to surgery then hold. Start again with lovenox the day after surgery (24 hours after). Start coumadin immediately after surgery. Continue lovenox until coumadin is within therapeutic range. CIATE DATA SCIENTIST documented in this encounter Progress Notes Froylan Louise MD - 06/05/2018 3:00 PM CST [facility] [id number] [place] [id number] Dept: [phone] PRE-OP EVALUATION: Today's date: 06/05/2018 Virgil Christine (: 1955) presents for pre-operative evaluation assessment as requested by Dr. Suazo. He requires evaluation and anesthesia risk assessment prior to undergoing surgery/procedure for treatment of [place]-rectal . Fax number for surgical facility: not needed Primary Physician: Froylan Louise Type of Anesthesia Anticipated: General Patient has a Health Care Directive or Living Will: NO Preop Questions 06/05/2018 Who is doing your surgery? dr yahaira burris What are you having done? exploratory surgery for my phistula Date of Surgery/Procedure: May Facility or Hospital where procedure/surgery will be performed: [facility] 1. Do you have a history of Heart attack, stroke, stent, coronary bypass surgery, or other heart surgery? No 2. Do you ever have any pain or discomfort in your chest? No 3. Do you have a history of Heart Failure? No 4. Are you troubled by shortness of breath when: walking on a level surface, or up a slight hill, orat night? No 5. Do you currently have a cold, bronchitis or other respiratory infection? No 6. Do you have a cough, shortness of breath, or wheezing? No 7. Do you sometimes get pains in the calves of your legs when you walk? YES - blood clot, DVT, rightcalf 8. Do you or anyone in your family have previous history of blood clots? No 9. Do you or does anyone in your family have a serious bleeding problem such as prolonged bleeding following surgeries or cuts? No 10. Have you ever had problems with anemia or been told to take iron pills? No 11. Have you had any abnormal blood loss such as black, tarry or bloody stools? No 12. Have you ever had a blood transfusion? No 13. Have you or any of your relatives ever had problems with anesthesia? No 14. Do you have sleep apnea, excessive snoring or daytime drowsiness? UNKNOWN - snore 15. Do you have any prosthetic heart valves? No 16. Do you have prosthetic joints? YES - right knee inside replacement HPI: HPI related to upcoming procedure: Fistula History of ulcerative colitis, status post colectomy. ?? 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 Prior clot in the right lower extremity DVT in 2013 thought to be provoked with surgery after colectomy and has seen hematology who thought him safe to stop Coumadin. He was found to have extensive bilateral lower extremity DVT and PE in September 2017. ??He underwent mechanical andmedical thrombectomy. Patient was restarted on??Coumadin. History of mild persistent asthma well controlled on Symbicort. MEDICAL HISTORY: Patient Active Problem List Diagnosis Date Noted ??? Health Snf 07/16/2011 Priority: High EMERGENCY CARE PLAN Presenting Problem Signs and Symptoms Treatment Plan Questions or conerns during clinic hours I will call the clinic directly Questions or conerns outside clinic hours I will call the 24 hour nurse line at [phone] Patient needs to schedule an appointment I will call the 24 hour scheduling team at [phone] orclinic directly Same day treatment I will call the clinic first, nurse line if after hours, urgent care and expresscare if needed DX V65.8 REPLACED WITH [id number] [facility] (09/28/2012) ??? Chronic deep vein thrombosis (DVT) [...] PE Past Medical History: Diagnosis Date ??? Arthritis ??? COPD (chronic obstructive pulmonary disease) (H) ??? DVT (deep venous thrombosis) (H) 2014 RIGHT LEG AFTER COLON SURGERY. ??? DVT (deep venous thrombosis) (H) 10/01/2017 Extensive requiring thrombectomy ??? Hypertension ??? Personal history of DVT (deep vein thrombosis) 08/17/2013 ??? Sleep apnea NOT BEING TREATED FOR THIS. ??? Ulcerative colitis (H) Had Colectomy ??? Uncomplicated asthma ??? Unspecified hemorrhoids without mention of complication Hemorrhoids Past Surgical History: Procedure Laterality Date ??? ARTHROPLASTY KNEE UNICOMPARTMENT 08/20/2013 Procedure: ARTHROPLASTY KNEE UNICOMPARTMENT; Right Knee Uni Arthroplasty ; Surgeon: Jose Fonseca MD; Location: [facility] OR ??? COLECTOMY ??? COLOSTOMY pochoscopy ??? COLOSTOMY 06/20/2017 pouchoscopy ??? bindu filter ??? ORTHOPEDIC SURGERY ??? POUCHOSCOPY N/A 06/22/2014 Procedure: POUCHOSCOPY; Surgeon: Chase Suazo MD; Location: GI ??? POUCHOSCOPY N/A 06/20/2017 Procedure: POUCHOSCOPY; POUCHOSCOPY ; Surgeon: Chase Suazo MD; Location: [facility] GI ??? RESECTION ABDOMINAL PERINEAL Current Outpatient Medications Medication Sig Dispense Refill ??? albuterol (PROAIR HFA/PROVENTIL HFA/VENTOLIN HFA) 108 (90 Base) MCG/ACT inhaler Inhale 2 puffs into the lungs every 6 hours as needed for shortness of breath / dyspnea or wheezing 3 Inhaler 3 ??? budesonide-formoterol (SYMBICORT) 160-4.5 MCG/ACT Inhaler Inhale 2 puffs into the lungs 2 times daily 3 Inhaler 0 ??? cyclobenzaprine (FLEXERIL) 10 MG tablet Take 1 tablet (10 mg) by mouth 3 times daily as needed for muscle spasms 30 tablet 2 ??? enoxaparin (LOVENOX) 40 MG/0.4ML syringe Inject 0.4 mLs (40 mg) Subcutaneous daily for 10 days 4mL 0 ??? furosemide (LASIX) 20 MG tablet Take 0.5 tablets (10 mg) by mouth daily Take 0.5-1 tablets by mouth. Take as needed for leg swelling. 90 tablet 3 ??? loperamide (IMODIUM) 2 MG capsule TAKE 3-4 CAPSULES (6-8 MG) BY MOUTH 3 TIMES DAILY NEEDED FOR DIARRHEA 480 capsule 0 ??? order for DME Equipment being ordered: sport stocking 2 pair knee high 20-30 mmHg Fax to [facility] - [phone] 2 Units 0 ??? order for DME Equipment being ordered: compression stockings 1 pair, fit to size 20-30 mmHg 1 Units 0 ??? sildenafil (VIAGRA) 50 MG tablet Take 0.5-1 tablets (25-50 mg) by mouth daily as needed 6 tablet3 ??? terazosin (HYTRIN) 2 MG capsule Take 1 capsule (2 mg) by mouth At Bedtime 90 capsule 1 ??? traZODone (DESYREL) 50 MG tablet Take 1-2 tablets (50-100 mg) by mouth nightly as needed for sleep 60 tablet 1 ??? triamcinolone (KENALOG) 0.1 % cream APPLY TOPICALLY TWICE DAILY 30 g 1 ??? warfarin (COUMADIN) 5 MG tablet 5 mg on Mon, Wed, Fri; 7.5 mg all other days 90 tablet 0 ??? warfarin (COUMADIN) 7.5 MG tablet TAKE 7.5 MG (ONE 7.5 MG TAB) ON MON, WED, FRI. AND TAKE 5 MG (ONE 5MG TAB) ON ALL OTHER DAYS 30 tablet 0 ??? zolpidem (AMBIEN CR) 12.5 MG CR tablet TAKE 1 TABLET BY MOUTH NIGHTLY NEEDED FOR SLEEP 30 tablet 0 ??? oxyCODONE-acetaminophen (PERCOCET) 5-325 MG per tablet Take 1-2 tablets by mouth every 6 hours as needed for moderate to severe pain (Patient not taking: Reported on 06/05/2018) 20 tablet 0 OTC products: None, except as noted above No Known Allergies Latex Allergy: NO Social History Tobacco Use ??? Smoking status: Former Smoker Packs/day: 2.00 Years: 25.00 Pack years: 50.00 Types: Cigarettes Last attempt to quit: 08/04/2006 Years since quittin.8 ??? Smokeless tobacco: Never Used ??? Tobacco comment: 2004 Substance Use Topics ??? Alcohol use: Yes Comment: 4 BEERS A WEEK History Drug Use No REVIEW OF SYSTEMS: CONSTITUTIONAL: NEGATIVE for fever, chills, change in [...] NEGATIVE for changes in mood or affect This document serves as a record of the services and decisions personally performed and made by Froylan Louise MD. It was created on his behalf by Sofia Altman, a trained medical assembly. The creation of this document is based on the provider's statements to the medical assembly. Sofia Altman 3:22 PM June 05, 2018 EXAM: BP 128/78 (BP Location: Right arm, Patient Position: Chair, Cuff Size: Adult Large) Pulse 78 Temp 98.5 ??F (36.9 ??C) (Oral) Resp 16 Ht 1.791 m (5' 10.5) Wt 102.1 kg (225 lb) SpO2 98% BMI 31.83 kg/m?? GENERAL APPEARANCE: healthy, alert and no distress EYES: EOMI, PERRL HENT: ear canals and TM's normal and nose and mouth without ulcers or lesions NECK: no adenopathy, no asymmetry, masses, or scars and thyroid normal to palpation RESP: lungs clear to auscultation - no rales, rhonchi or wheezes CV: 2+ swelling right leg, regular rates and rhythm, normal S1 S2, no S3 or S4 and no murmur, clickor rub ABDOMEN: soft, nontender, no HSM or masses and bowel sounds normal MS: extremities normal- no gross deformities noted, no evidence of inflammation in joints, FROM in all extremities. SKIN: no suspicious lesions or rashes NEURO: Normal strength and tone, sensory exam grossly normal, mentation intact and speech normal PSYCH: mentation appears normal. and affect normal/bright DIAGNOSTICS: EKG: Normal Sinus Rhythm, normal axis, normal intervals, no acute ST/T changes c/w ischemia, no LVH by voltage criteria, unchanged from previous tracings Recent Labs Lab Test 05/25/18 05/11/18 01/05/18 1615 05/25/17 0810 06/08/16 1022 HGB -- -- -- 14.8 -- 14.6 14.2 PLT -- -- -- 242 -- 213 202 INR 3.0* 3.4* < > -- < > -- -- NA -- -- -- 142 -- 140 142 POTASSIUM -- -- -- 4.3 -- 4.5 4.1 CR -- -- -- 0.88 -- 0.91 0.84 A1C -- -- -- -- -- 5.8 5.5 < > = values in this interval not displayed. IMPRESSION: Reason for surgery/procedure: Fistula Diagnosis/reason for consult: preoperative evaluation for assessment of cardiovascular and respiratory disease as well as overall risk assessment and perioperative medical management. The proposed surgical procedure is considered LOW risk. REVISED CARDIAC RISK INDEX The patient has the following serious cardiovascular risks for perioperative complications such as (TX, PE, VFib and 3?? AV Block): No serious cardiac risks INTERPRETATION: 0 risks: Class I (very low risk - 0.4% complication rate) The patient has the following additional risks for perioperative complications: No identified additional risks ICD-10-CM 1. Preop general physical exam Z01.818 EKG 12-lead complete w/read - Clinics 2. Postthrombotic syndrome I87.009 Lupus Anticoagulant Panel CRP inflammation Comprehensive metabolic panel CBC with platelets differential Cardiolipin Terra IgG and IgM enoxaparin (LOVENOX) 40 MG/0.4ML syringe 3. Anticardiolipin antibody positive R76.8 Lupus Anticoagulant Panel CRP inflammation Comprehensive metabolic panel CBC with platelets differential Cardiolipin Terra IgG and IgM enoxaparin (LOVENOX) 40 MG/0.4ML syringe 4. Chronic deep vein thrombosis (DVT) of lower extremity, unspecified laterality, unspecified vein (H) I82.509 Lupus Anticoagulant Panel CRP inflammation Comprehensive metabolic panel CBC with platelets differential Cardiolipin Terra IgG and IgM enoxaparin (LOVENOX) 40 MG/0.4ML syringe RECOMMENDATIONS: Cardiovascular Risk Performs 4 METs exercise without symptoms (Climb a flight of stairs and Walk on level ground at 15 minutes per mile (4 miles/hour)) . Pulmonary Risk Maximize asthma treatment --Patient is to take all scheduled medications on the day of surgery EXCEPT for modifications listedbelow. Anticoagulant or Antiplatelet Medication Use WARFARIN: Thromboembolic risk is moderate to high (Patient with extensive limb threatening DVT), hold warfarin 5 days prior to procedure and start Lovenox/ Heparin 3 days before procedure, last dose 24hours before procedure. Restart after surgery with both coumadin and lovenox until therapeutic INR or per surgeon bleeding risk concern. APPROVAL GIVEN to proceed with proposed procedure, without further diagnostic evaluation The information in this document, created by the medical assembly for me, accurately reflects the services I personally performed and the decisions made by me. I have reviewed and approved this document for accuracy prior to leaving the patient care area. June 05, 2018 3:52 PM Signed Electronically by: Froylan Louise MD Copy of this evaluation report is provided to requesting physician. [facility] Preop Guidelines Revised Cardiac Risk Index CIATE DATA SCIENTIST Carolin Dawson - 06/05/2018 3:00 PM CST No need to fax, surgery is being done at [facility]. Carolin Dawson Taping Foreman CIATE DATA SCIENTIST documented in this encounter Plan of Treatment Upcoming Encounters Date Type Specialty Care Team Description 05/20/2022 Lab Lab documented as of this encounter Procedures Procedure Name Priority Date/Time Associated Diagnosis Comme nts CARDIOLIPIN TERRA IGG Routine 06/05/2018 3:53 Postthrombotic Res ults for this AND IGM PM ASSOCIATE DATA SCIENTIST syndrome procedure are in Anticardiolipin the results antibody positiv e section. Chronic deep vein thrombosis (DVT) of lower extremity, unspecified laterality, unspecified vein (H) CBC WITH PLATELETS & Routine 06/05/2018 3:53 Postthrombotic Re sults for this DIFFERENTIAL PM ASSOCIATE DATA SCIENTIST syndrome procedure are in Anticardiolipin the results antibody positiv e section. Chronic deep vein thrombosis (DVT) of lower extremity, unspecified laterality, unspecified vein (H) LUPUS ANTICOAGULANT Routine 06/05/2018 3:53 Postthrombotic Res ults for this PANEL PM ASSOCIATE DATA SCIENTIST syndrome procedure are in Anticardiolipin the results antibody positiv e section. Chronic deep vein thrombosis (DVT) of lower extremity, unspecified laterality, unspecified vein (H) CRP INFLAMMATION Routine 06/05/2018 3:53 Postthrombotic Result s for this PM ASSOCIATE DATA SCIENTIST syndrome procedure are in Anticardiolipin the results antibody positiv e section. Chronic deep vein thrombosis (DVT) of lower extremity, unspecified laterality, unspecified vein (H) COMPREHENSIVE Routine 06/05/2018 3:53 Postthrombotic Results f or this METABOLIC PANEL PM ASSOCIATE DATA SCIENTIST syndrome procedure are in Anticardiolipin the results antibody positiv e section. Chronic deep vein thrombosis (DVT) of lower extremity, unspecified laterality, unspecified vein (H) EKG 12-LEAD COMPLETE Routine 06/05/2018 Preop general physic al Results for this W/READ - CLINICS exam procedure a re in the results section. documented in this encounter Results Cardiolipin Terra IgG and IgM (06/05/2018 3:53 PM [facility]) athologist Signature Cardiolipin <1.6 0.0 - 19.9 06/07/2018 [facility] IgG GPL-U/mL 10:36 AM [facility] Comment: Negative Cardiolipin Antibody 2.0 0.0 - 19.9 06/07/2018 10:36 A [facility] IgM MPL-U/mL [facility] Comment: Negative Specimen Anatomical Collection Method Collection Time Receive d Time (Source) Location / / Volume Laterality Blood specimen 06/05/2018 3:53 PM 018 3:54 (specimen) ASSOCIATE DATA SCIENTIST PM ASSOCIATE DATA SCIENTIST Luis A Charles MD LAB - BLOOD ORDERABLES Performing Organization Address City/State/ZIP Code Phon e Number [facility] [address] [place], [place] [id number] [place] [address] CBC with platelets differential (06/05/2018 3:53 PM ASSOCIATE DATA SCIENTIST) [facility] gist Method Time Signature WBC 6.3 4.0 - 06/05/2018 [facility] 11.0 4:08 PM ASSOCIATE DATA SCIENTIST CLINICS 10e9/L LEE RBC Count 4.94 4.4 - 5.9 06/05/2018 [facility] 10e12/L 4:08 PM ASSOCIATE DATA SCIENTIST [facility] Hemoglobin 14.0 13.3 - 06/05/2018 [facility] 17.7 g/dL 4:08 PM ASSOCIATE DATA SCIENTIST [facility] Hematocrit 43.4 40.0 - 06/05/2018 [facility] 53.0 % 4:08 PM ASSOCIATE DATA SCIENTIST [facility] MCV 88 78 - 100 06/05/2018 [facility] fl 4:08 PM ASSOCIATE DATA SCIENTIST CLINICS LEE MCH 28.3 26.5 - 06/05/2018 [facility] 33.0 pg 4:08 PM ASSOCIATE DATA SCIENTIST [facility] MCHC 32.3 31.5 - 06/05/2018 [facility] 36.5 g/dL 4:08 PM ASSOCIATE DATA SCIENTIST [facility] RDW 14.9 10.0 - 06/05/2018 [facility] 15.0 % 4:08 PM ASSOCIATE DATA SCIENTIST [facility] Platelet Count 196 150 - 450 06/05/2018 [facility] 10e9/L 4:08 PM ASSOCIATE DATA SCIENTIST [facility] Diff Method Automated 06/05/2018 [facility] Method 4:08 PM ASSOCIATE DATA SCIENTIST [facility] % Neutrophils 70.1 % 06/05/2018 [facility] 4:08 PM ASSOCIATE DATA SCIENTIST [facility] LEE % Lymphocytes 19.0 % 06/05/2018 [facility] 4:08 PM ASSOCIATE DATA SCIENTIST [facility] % Monocytes 8.5 % 06/05/2018 [facility] 4:08 PM ASSOCIATE DATA SCIENTIST [facility] % Eosinophils 2.1 % 06/05/2018 [facility] 4:08 PM ASSOCIATE DATA SCIENTIST [facility] % Basophils 0.3 % 06/05/2018 [facility] 4:08 PM ASSOCIATE DATA SCIENTIST [facility] Absolute 4.4 1.6 - 8.3 06/05/2018 [facility] Neutrophil 10e9/L 4:08 PM ASSOCIATE DATA SCIENTIST [facility] Absolute 1.2 0.8 - 5.3 06/05/2018 [facility] Lymphocytes 10e9/L 4:08 PM ASSOCIATE DATA SCIENTIST [facility] Absolute 0.5 0.0 - 1.3 06/05/2018 [facility] Monocytes 10e9/L 4:08 PM [facility] Absolute 0.1 0.0 - 0.7 06/05/2018 [facility] Eosinophils 10e9/L 4:08 PM [facility] Absolute 0.0 0.0 - 0.2 06/05/2018 [facility] Basophils 10e9/L 4:08 PM [facility] Specimen Anatomical Collection Method Collection Time Receive d Time (Source) Location / / Volume Laterality Blood specimen 06/05/2018 3:53 PM 018 3:54 (specimen) ASSOCIATE DATA SCIENTIST PM ASSOCIATE DATA SCIENTIST Luis A Charles MD LAB - BLOOD ORDERABLES Performing Organization Address City/State/ZIP Code Phon e Number [facility] [address] [place] [address] (ABNORMAL) Comprehensive metabolic panel (06/05/2018 3:53 PM ASSOCIATE DATA SCIENTIST) [facility] Method Time Signature Sodium 139 133 - 144 06/06/2018 [facility] mmol/L 2:21 PM [facility] Potassium 4.0 3.4 - 5.3 06/06/2018 [facility] mmol/L 2:21 PM [facility] Chloride 110 (H) 94 - 109 06/06/2018 [facility] mmol/L 2:21 PM [facility] Carbon Dioxide 24 20 - 32 06/06/2018 [facility] mmol/L 2:21 PM [facility] Anion Gap 5 3 - 14 06/06/2018 [place] mmol/L 2:21 PM [facility] Glucose 99 70 - 99 06/06/2018 [facility] mg/dL 2:21 PM [facility] Urea Nitrogen 19 7 - 30 06/06/2018 [facility] mg/dL 2:21 PM [facility] Creatinine 0.81 0.66 - 06/06/2018 [facility] 1.25 mg/dL 2:21 PM [facility] GFR Estimate >90 >60 06/06/2018 [facility] mL/min/1.7 2:21 PM [facility] m2 [facility] Comment: Non GFR Calc GFR Estimate If >90 >60 mL/min/1.7m2 06/06/2018 2:21 P [facility] Black [facility] Comment: GFR Calc Calcium 8.5 8.5 - 10.1 06/06/2018 2:21 PM [facility] LINICS mg/dL [facility] Bilirubin Total 0.9 0.2 - 1.3 mg/dL 06/06/2018 2:21 PM [facility] Albumin 3.4 3.4 - 5.0 g/dL 06/06/2018 2:21 PM [facility] Protein Total 7.5 6.8 - 8.8 g/dL 06/06/2018 2:21 PM [facility] Alkaline Phosphatase 83 40 - 150 U/L 06/06/2018 2:21 PM [facility] ALT 27 0 - 70 U/L 06/06/2018 2:21 PM [facility] AST 28 0 - 45 U/L 06/06/2018 2:21 PM [facility] Specimen Anatomical Collection Method Collection Time Receive d Time (Source) Location / / Volume Laterality Blood specimen 06/05/2018 3:53 PM 018 3:54 (specimen) ASSOCIATE DATA SCIENTIST PM ASSOCIATE DATA SCIENTIST Luis A Charles MD LAB - BLOOD ORDERABLES Performing Organization Address City/State/ZIP Code Phon e Number [facility] [address] [place] [address] (ABNORMAL) CRP inflammation (06/05/2018 3:53 PM ASSOCIATE DATA SCIENTIST) [facility] gist Method Time Signature CRP Inflammation 60.0 (H) 0.0 - 8.0 06/06/2018 [facility] mg/L 5:57 PM ASSOCIATE DATA SCIENTIST [facility] Specimen Anatomical Collection Method Collection Time Receive d Time (Source) Location / / Volume Laterality Blood specimen 06/05/2018 3:53 PM 018 3:54 (specimen) ASSOCIATE DATA SCIENTIST PM ASSOCIATE DATA SCIENTIST Luis A Charles MD LAB - BLOOD ORDERABLES Performing Organization Address City/State/ZIP Code Phon e Number [facility] [address] [place], [place] [phone] [place] [address] (ABNORMAL) Lupus Anticoagulant Panel (06/05/2018 3:53 PM ASSOCIATE DATA SCIENTIST) [facility] Method Time Signature Lupus Result Positive (A) NEG^Negat 06/08/2018 [facility] 12:44 PM ASSOCIATE DATA SCIENTIST [facility] Comment: (Note) COMMENTS: INR is elevated. APTT ratio is elevated. Platelet Neutralization is negative. APTT 1:2 Mix ratio is normal. DRVVT Screen ratio is elevated. DRVVT Confirm Normalized ratio is elevat ed. Thrombin time is normal. POSITIVE TEST; THIS PATIENT HAS A ??LUPU S ANTICOAGULANT. Recommend repeat testing in 12 weeks to determine if the Lupus Anticoagulant is persistent or transient , since a transient one does not confer an increased thrombotic risk. If the patient is on an anticoagulant, r ecommend repeat testing without anticoagulation interference to rule out a false positive lupus anticoagulant. Patients with a lupus anticoagulant on w arfarin therapy should be monitored with a factor 2 (factor II) le ladan or chromogenic factor 10 (factor X) assay. Rose Dorsey M.D. ??[phone] 06/08/2018 ? INR = ?1.82 ?Reference range: 0.86-1.14 ? Thrombin Time= ? 16.6 ?Ref erence range: 13.0-19.0 sec ? APTT: ? Ratio ? Patient ??= ?1.41 ? 1:2 Mix ??= ?1.03 ? Reference: ? Negative: Less than or equal to 1.16 ? Positive: Greater than or equal to 1.17 ? Platelet Neutralization (seconds): ? PTT Buffer-PTT Platelet Lysate = ?-3 ? Reference: ? Negative: Less than or equal to 0 ? Positive: Greater than or equal to 1 ? DILUTE COOKIE VIPER VENOM TEST: ? Screen Ratio = ? 1.62 ? Stacy l is less than 1.21 ? Confirm Normalized Ratio ??= ? 1.28 ? Normal is less than 1.21 ? Specimen Anatomical Collection Method Collection Time Receive d Time (Source) Location / / Volume Laterality Blood specimen 06/05/2018 3:53 PM 018 3:54 (specimen) ASSOCIATE DATA SCIENTIST PM ASSOCIATE DATA SCIENTIST Luis A Charles MD LAB - BLOOD ORDERABLES Performing Organization Address City/State/ZIP Code Phon e Number [facility] [address] EKG 12-lead complete w/read - Clinics (06/05/2018) Narrative This result has an attachment that is no t available. 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
--- OUTSIDE RECORDS SUMMARY | 2022-05-15 22:31 | XMS_ITS | Encounter Summary ---
:1955 Author Organization [place] Address [address] [facility] [place] [address] Care Team Providers Name Role Phone Froylan Louise MD Primary Care Provider Unavailable Froylan Louise MD Unavailable Unavailable Froylan Louise MD Unavailable Unavailable Reason for Visit Reason Onset Date Comments hold orders 04/07/2018 for upcoming procedu re Encounter Details Date Type Department Care Team Description 04/07/[address] [facility] Luis A Charles hold or ders (for Vascular Clinic Jesse Perez MD upcoming procedure) [address] [facility] [address] [place] [address] [place] [address] (Wo rk) Social History Tobacco Use Types [...] containing 4 or more times a w nez perce 05/25/2021 alcohol? How many drinks containing alcohol [...] you attend nondenominational or Patient refused 2020 pentecostalism services? Do [...] this encounter Miscellaneous Notes Telephone Encounter - Carmita Mejia RN - 04/08/2018 11:23 AM CDT I called patient back and advised to hold Coumadin 4 days prior to surgery (Apr.13) check INR and move forward with surgery if <1.6 and to restart Coumadin after surgery per Dr. Charles. Carmita PASTRANAN, RN Telephone Encounter - Liz Ott RN - 04/07/2018 9:16 AM CDT Patient called and states that he needs hold/ bridging orders for upcoming procedure (revision of fistula) Please advise documented in this encounter Plan of Treatment Upcoming Encounters Date Type Specialty Care Team Description 05/20/2022 Lab Lab documented as of this encounter Visit Diagnoses Not on filedocumented in this encounter Care Teams Story Reader Relationship Specialty Start Date End Date Froylan Louise MD PCP - General Family Practice 02/22/14 Froylan Louise MD PCP - Assigned PCP 03/13/14 08/25/18 Froylan Louise MD Assigned PCP 03/13/14 2 documented as of this encounter
--- OUTSIDE RECORDS SUMMARY | 2022-05-15 22:31 | XMS_ITS | Encounter Summary ---
:1955 Author Organization [place] Address [address] [place] [address] Care Team Providers Name Role Phone Froylan Louise MD Primary Care Provider Unavailable Froylan Louise MD Unavailable Unavailable Froylan Louise MD Unavailable Unavailable Reason for Referral Follow Up - Closed Specialty Diagnoses / Procedures Referred By Contact Refer red To Contact Diagnoses Postthrombotic syndrome Anticardiolipin antibody positive Other ulcerative colitis without complication (H) Chronic deep vein thrombosis (DVT) of lower extremity, unspecified laterality, unspecified vein (H) Luis A Charles MD [address] [address] Referral ID Status Reason Start Date Expiration Date Visits Requ ested Visits Authorized [id number] Closed 05/27/2018 05/27/2019 1 1 FILLER Reason for Visit Reason Comments RECHECK 3 month follow up - Closed Specialty Diagnoses / Procedures Referred By Contact Refer red To Contact Diagnoses Postthrombotic syndrome Anticardiolipin antibody positive Chronic deep vein thrombosis (DVT) of lower extremity, unspecified laterality, unspecified vein (H) Luis A Charles MD [address] [address] Referral ID Status Reason Start Date Expiration Date Visits Requ ested Visits Authorized [id number] Closed 01/27/2018 01/27/2019 1 1 Encounter Details Date Type Department Care Team Description 05/27/2018 Office Visit [facility] Araceli Luis A Other u lcerative colitis without complication (H) (Primary Dx); Vascular Clinic MD Ana Postthrombotic syndrome; [place] [address] [facility] Anticardiolipin antibody pos itive; [address] Chronic deep vein thrombosis (DVT) of lo wer extremity, unspecified laterality, unspecified vein (H) [address] [place] [id number] Social History Tobacco Use Types Packs/Day Years [...] you attend religion or Patient refused 2020 muslim services? Do [...] Sign Reading Time Taken Comments Blood Pressure 145/89 05/27/2018 12:51 PM BASE FILLER Pulse 73 05/27/2018 12:51 PM BASE FILLER Temperature - - Respiratory Rate - - Oxygen Saturation 98% 05/27/2018 12:50 PM BASE FILLER Inhaled Oxygen Concentration - - Weight 104.8 kg (231 lb) 05/27/2018 12:50 PM BASE FILLER Height - - Body Mass Index 32.68 03/23/2018 4:01 PM CDT documented in this encounter Progress Notes Luis A Charles MD - 05/27/2018 12:50 PM CST Vascular Medicine Progress Note Virgil Christine is a 62 year old male who is here for follow-up on second episode of DVT, venous insufficiency with PTS mainly affecting the right lower extremity patient Interval History Wears compression stockings on and off, patient swelling is down by 50% but it still causes problems, patient as a mentioned is not wearing compression stockings on a regular basis, patient denies any history of spontaneous ulceration or spontaneous bleeding Patient has a long-standing history of ulcerative colitis which clears up every now and then now he does not have any signs of flareup yet he is due for surgery to repair a fistula this will be next week Patient currently is on Coumadin, he is therapeutic, has been on Coumadin for the past 8 months Patient tested only tested once for anticardiolipin/lupus anticoagulant Physical Exam BP: 145/89 Pulse: 73 SpO2: 98 % Vitals: 05/27/18 1250 Weight: 231 lb (104.8 kg) Vital Signs with Ranges Pulse: [69-73] 73 BP: (145-158)/(89-91) 145/89 SpO2: [98 %] 98 % @[id number]@ Constitutional: awake, alert, cooperative, no apparent distress, and appears stated age Eyes: Lids and lashes normal, pupils equal, round and reactive to light, extra ocular muscles intact, sclera clear, conjunctiva normal ENT: normocepalic, without obvious abnormality, oropharynx pink and moist Hematologic / Lymphatic: no lymphadenopathy Respiratory: No increased work of breathing, good air exchange, clear to auscultation bilaterally, no crackles or wheezing Cardiovascular: regular rate and rhythm, normal S1 and S2 and no murmur noted GI: Normal bowel sounds, soft, non-distended, non-tender Skin: no redness, warmth, or swelling, no rashes and no lesions Musculoskeletal: There is no redness, warmth, or swelling of the joints. Full range of motion noted.Motor strength is 5 out of 5 all extremities bilaterally. Tone is normal. Neurologic: Awake, alert, oriented to name, place and time. Cranial nerves II- XII are grossly intact. Motor is 5 out of 5 bilaterally. Neuropsychiatric: Normal affect, memory, insight. Pulses: Intact pulses Pitting edema extending from the dorsum of the foot all the way up to the knees right more than left . No carotid bruits appreciated. Medications Data No results found for this or any previous visit (from the past 24 hour(s)). Assessment & Plan (K51.80) Other ulcerative colitis without complication (H) (primary encounter diagnosis) Comment: No sign of flareup for ulcerative colitis for now, patient is due for fistula surgery next week Can continue with Coumadin until 4 days prior to surgery with INR less than 1.6 After surgery patient can be on Lovenox 40 mg subcu daily with concomitant use of Coumadin to a target of INR between 2 and 3 Plan: Follow-Up with Vascular Medicine (I87.009) Postthrombotic syndrome Comment: Compression treatment, patient can benefit from MLD for a month then he can be started on his compression stockings 20-30 mmHg, thigh-high, bilateral, care instructions were given to the patient Plan: Cardiolipin Kandice IgG and IgM, CBC with platelets differential, Comprehensive metabolic panel, CRP inflammation, Lupus Anticoagulant Panel, Follow-Up with Vascular Medicine (R76.8) Anticardiolipin antibody positive Comment: Will retest the patient for lupus anticoagulant spent more than 12 weeks since his last test Plan: Cardiolipin Kandice IgG and IgM, CBC with platelets differential, Comprehensive metabolic panel, CRP inflammation, Lupus Anticoagulant Panel, Follow-Up with Vascular Medicine (I82.509) Chronic deep vein thrombosis (DVT) of lower extremity, unspecified laterality, unspecifiedvein (H) Comment: Continue with Coumadin for now Plan: Cardiolipin Kandice IgG and IgM, CBC with platelets differential, Comprehensive metabolic panel, CRP inflammation, Lupus Anticoagulant Panel, Follow-Up with Vascular Medicine Summary: Follow-up with the patient in 4 months from now LuisA Charles MD FILLER documented in this encounter Nursing Notes Kathryn Yang - 05/27/2018 12:50 PM CST Virgil Christine is a 62 year old male who presents for: Chief Complaint Patient presents with ??? RECHECK 3 month follow up Vitals: Vitals: 05/27/18 1250 05/27/18 1251 BP: (!) 158/91 145/89 BP Location: Right arm Right arm Patient Position: Chair Chair Cuff Size: Adult Large Adult Large Pulse: 69 73 SpO2: 98% Weight: 231 lb (104.8 kg) BMI: Estimated body mass index is 32.68 kg/(m^2) as calculated from the following: Height as of 03/23/18: 5' 10.5 (1.791 m). Weight as of this encounter: 231 lb (104.8 kg). Pain Score: Data Unavailable Kathryn Yang MA FILLER documented in this encounter Plan of Treatment Upcoming Encounters Date Type Specialty Care Team Description 05/20/2022 Lab Lab Scheduled Referrals Name Type Priority Associated Diagnoses Order S chedule Follow-Up with Referral Routine Postthrombotic s yndrome Expected: 11/21/2018 Vascular Medicine Anticardiolipin antibod y (Approximate), positive Expires: 05/27/2019 Other ulcerative colitis without complica tion (H) Chronic deep vein thrombosis (DVT) of lower extremity, unspecified laterality, unspecified vein (H) documented as of this encounter Results (ABNORMAL) Lupus Anticoagulant Panel (06/05/2018 3:53 PM BASE FILLER) [facility] Method Time Signature Lupus Result Positive (A) NEG^Negat 06/08/2018 [facility] 12:44 PM BASE FILLER [facility] Comment: (Note) COMMENTS: INR is elevated. [...] 10 (factor X) assay. Rose Dorsey M.D. ??[phone] 06/08/2018 ? INR = ?1.82 ?Reference range: [...] specimen 06/05/2018 3:53 PM 018 3:54 (specimen) BASE FILLER PM BASE FILLER Luis A Charles MD LAB - BLOOD ORDERABLES Performing Organization Address City/State/ZIP Code Phon e Number [facility] [address] [place], [place] [id number] [place] [address] (ABNORMAL) CRP inflammation (06/05/2018 3:53 PM BASE FILLER) [facility] gist Method Time Signature CRP Inflammation 60.0 (H) 0.0 - 8.0 06/06/2018 [facility] mg/L 5:57 PM BASE FILLER [facility] Specimen Anatomical Collection Method Collection Time Receive d Time (Source) Location / / Volume Laterality Blood specimen 06/05/2018 3:53 PM 018 3:54 (specimen) BASE FILLER PM BASE FILLER Luis A Charles MD LAB - BLOOD ORDERABLES Performing Organization Address City/State/ZIP Code Phon e Number [facility] [address] [place], [place] [id number] [place] [address] (ABNORMAL) Comprehensive metabolic panel (06/05/2018 3:53 PM BASE FILLER) [facility] gist Method Time Signature Sodium 139 133 - 144 06/06/2018 [facility] mmol/L 2:21 PM [facility] Potassium 4.0 3.4 - 5.3 06/06/2018 [facility] mmol/L 2:21 PM [facility] Chloride 110 (H) 94 - 109 06/06/2018 [facility] mmol/L 2:21 PM [facility] Carbon Dioxide 24 20 - 32 06/06/2018 [facility] mmol/L 2:21 PM [facility] Anion Gap 5 3 - 14 06/06/2018 [facility] mmol/L 2:21 PM [facility] Glucose 99 70 - 99 06/06/2018 [facility] mg/dL 2:21 PM [facility] Urea Nitrogen 19 7 - 30 06/06/2018 [facility] mg/dL 2:21 PM [facility] Creatinine 0.81 0.66 - 06/06/2018 [facility] 1.25 mg/dL 2:21 PM [facility] GFR Estimate >90 >60 06/06/2018 [facility] mL/min/1.7 2:[address] Comment: Non GFR Calc GFR Estimate If >90 >60 mL/min/1.7m2 06/06/2018 2:21 P M [facility] Comment: GFR Calc Calcium 8.5 8.5 - 10.1 06/06/2018 2:21 PM [facility] mg/dL [facility] Bilirubin Total 0.9 0.2 - 1.3 mg/dL 06/06/2018 2:[address] [facility] Albumin 3.4 3.4 - 5.0 g/dL 06/06/2018 2:21 PM [facility] Protein Total 7.5 6.8 - 8.8 g/dL 06/06/2018 2:21 PM [facility] Alkaline Phosphatase 83 40 - 150 U/L 06/06/2018 2:[address] [facility] ALT 27 0 - 70 U/L 06/06/2018 2:21 PM [facility] AST 28 0 - 45 U/L 06/06/2018 2:[address] [place] [address] [facility] Specimen Anatomical Collection Method Collection Time Receive d Time (Source) Location / / Volume Laterality Blood specimen 06/05/2018 3:53 PM 018 3:54 (specimen) BASE FILLER PM BASE FILLER Luis A Charles MD LAB - BLOOD ORDERABLES Performing Organization Address City/State/ZIP Code Phon e Number [facility] [address] [place] [address] CBC with platelets differential (06/05/2018 3:53 PM BASE FILLER) [facility] gist Method Time Signature WBC 6.3 4.0 - 06/05/2018 [facility] 11.0 4:08 PM [facility] 10e9/L [place] RBC Count 4.94 4.4 - 5.9 06/05/2018 [facility] 10e12/L 4:08 PM [facility] Hemoglobin 14.0 13.3 - 06/05/2018 [facility] 17.7 g/dL 4:08 PM [facility] Hematocrit 43.4 40.0 - 06/05/2018 [facility] 53.0 % 4:08 PM [facility] MCV 88 78 - 100 06/05/2018 [facility] fl 4:08 PM [facility] MCH 28.3 26.5 - 06/05/2018 [facility] 33.0 pg 4:08 PM [facility] MCHC 32.3 31.5 - 06/05/2018 [facility] 36.5 g/dL 4:08 PM [facility] RDW 14.9 10.0 - 06/05/2018 [facility] 15.0 % 4:08 PM [facility] Platelet Count 196 150 - 450 06/05/[facility] 4[facility]08 PM [facility] Diff Method Automated 06/05/2018 [facility] Method 4:08 PM BASE FILLER [facility] % Neutrophils 70.1 % 06/05/2018 [facility] 4:08 PM BASE FILLER [facility] % Lymphocytes 19.0 % 06/05/2018 [facility] 4:08 PM BASE FILLER [facility] % Monocytes 8.5 % 06/05/2018 [facility] 4:08 PM BASE FILLER [facility] % Eosinophils 2.1 % 06/05/2018 [facility] 4:08 PM [facility]ILLER [facility] % Basophils 0.3 % 06/05/2018 [facility] 4:08 PM [facility] Absolute 4.4 1.6 - 8.3 06/05/2018 [facility] Neutrophil 10e9/L 4:08 PM [facility] Absolute 1.2 0.8 - 5.3 06/05/2018 [facility] Lymphocytes 10e9/L 4:08 PM [facility] Absolute 0.5 0.0 - 1.3 06/05/2018 [facility] Monocytes 10e9/L 4:08 PM [facility] Absolute 0.1 0.0 - 0.7 06/05/2018 [facility] Eosinophils 10e9/L 4:08 PM [facility] Absolute 0.0 0.0 - 0.2 06/05/2018 [place] Basophils 10e9/L 4:08 PM [facility] Specimen Anatomical Collection Method Collection Time Receive d Time (Source) Location / / Volume Laterality Blood specimen 06/05/2018 3:53 PM 018 3:54 (specimen) BASE FILLER PM BASE FILLER Luis A Charles MD LAB - BLOOD ORDERABLES Performing Organization Address City/State/ZIP Code Phon e Number [facility] [address] [place] [address] Cardiolipin Kandice IgG and IgM (06/05/2018 3:53 PM BASE FILLER) P athologist Signature Cardiolipin <1.6 0.0 - 19.9 06/07/2018 [facility] IgG GPL-U/mL 10:36 AM [facility] Comment: Negative Cardiolipin Antibody 2.0 0.0 - 19.9 06/07/2018 10:36 A M [facility] IgM MPL-U/mL [facility] Comment: Negative Specimen Anatomical Collection Method Collection Time Receive d Time (Source) Location / / Volume Laterality Blood specimen 06/05/2018 3:53 PM 018 3:54 (specimen) BASE FILLER PM BASE FILLER Luis A Charles MD LAB - BLOOD ORDERABLES Performing Organization Address City/State/ZIP Code Phon e Number [facility] [address] documented in this encounter Visit Diagnoses Diagnosis Other ulcerative colitis without complic ation (H) - Primary 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
--- OUTSIDE RECORDS SUMMARY | 2022-05-15 22:31 | XMS_ITS | Encounter Summary ---
:1955 Author Organization [place] Address [address] [place] [address] Care Team Providers Name Role Phone Froylan Louise MD Primary Care Provider Unavailable Froylan Louise MD Unavailable Unavailable Froylan Louise MD Unavailable Unavailable Encounter Details Date Type Department Care Team Description 04/03/2018 Anticoagulation Therapy Visit [address] [phone] Social History Tobacco Use Types [...] attend latter day or Patient refused 2020 alevism services? Do [...] encounter Progress Notes Wendi Lindsay RN - 04/03/2018 1:47 PM CDT ANTICOAGULATION FOLLOW-UP CLINIC VISIT Patient Name: Virgil Christine Date: 04/03/2018 Contact Type: Face to Face SUBJECTIVE: Patient Findings Positives Missed doses Comments Missed a pill this week but isn't sure if it was on Friday or Friday but he then took the missed dose but he is not sure which one he made up. He could have taken an extra 2.5 mg but we will keep him at his same dosing for 2 weeks with a recheck OBJECTIVE INR Protime Date Value Ref Range Status 04/03/2018 3.0 (A) 0.86 - 1.14 Final ASSESSMENT / PLAN INR assessment THER Recheck INR In: 2 WEEKS INR Location Clinic Anticoagulation Summary as of 04/03/2018 INR goal 2.0-3.0 Today's INR 3.0 Warfarin maintenance plan 5 mg (5 mg x 1) on Mon, Wed, Fri; 7.5 mg (7.5 mg x 1) all other days Full warfarin instructions 5 mg on Mon, Wed, Fri; 7.5 mg all other days Weekly warfarin total 45 mg No change documented Wendi Lindsay RN Plan last modified Yeimi aDniel RN (02/12/2018) Next INR check 04/17/2018 Target end date Indications Long-term (current) use [...] Comme nts INR POINT OF CARE Routine 04/03/2018 Results fo r this procedure are in the resu lts section. documented in this encounter Results (ABNORMAL) INR point of care (04/03/2018) P athologist Signature INR Point of 3.0 (A) 0.86 - [facility] Care [address] [facility] Specimen (Source) Anatomical Location Collection Method / Collectio n Time Received Time / Laterality Volume 04/03/2018 Froylan Louise MD LAB - BLOOD ORDERABLES Performing Organization Address City/State/ZIP Code Phon e Number [facility] [id number] [place] [address] documented in this encounter Visit Diagnoses Not on filedocumented in this encounter Care Teams Platform Builder Relationship Specialty Start Date End Date Froylan Louise MD PCP - General Family Practice 02/22/14 Froylan Louise MD PCP - Assigned PCP 03/13/14 08/25/18 Froylan Louise MD Assigned PCP 03/13/14 2 documented as of this encounter
--- OUTSIDE RECORDS SUMMARY | 2022-05-15 22:31 | XMS_ITS | Encounter Summary ---
:1955 Author Organization [place] Address [address] [place] [address] Care Team Providers Name Role Phone Froylan Louise MD Primary Care Provider Unavailable Froylan Louise MD Unavailable Unavailable Froylan Louise MD Unavailable Unavailable Reason for Visit Reason Comments Medication Refill Encounter Details Date Type Department Care Team Description 04/30/2018 Refill [facility] Froylan Louise Ra, MD Medication Refill [address] [phone] Social History Tobacco Use [...] you attend alevism or Patient refused 2020 tenriism services? Do [...] Telephone Encounter - Wendi Lindsay RN - 04/30/2018 11:22 AM CST duplicate E-Prescribing Status: Receipt confirmed by pharmacy (04/28/2018 11:33 AM VENEER TAPER) Wendi Lindsay RN, BSN ER TAPER documented in this encounter Plan of Treatment Upcoming Encounters Date Type Specialty Care Team Description 05/20/2022 Lab Lab documented as of this encounter Visit Diagnoses Diagnosis Acute deep vein thrombosis (DVT) of prox imal vein of both lower extremities (H) documented in this encounter Care Teams Steam Tunnel Feeder Relationship Specialty Start Date End Date Froylan Louise MD PCP - General Family Practice 02/22/14 Froylan Luoise MD PCP - Assigned PCP 03/13/14 08/25/18 Froylan Louise MD Assigned PCP 03/13/14 2 documented as of this encounter
--- OUTSIDE RECORDS SUMMARY | 2022-05-15 22:31 | XMS_ITS | Encounter Summary ---
:1955 Author Organization [facility] Address [address] [place] [address] Care Team Providers Name Role Phone Froylan Louise MD Primary Care Provider Unavailable Froylan Louise MD Unavailable Unavailable Froylan Louise MD Unavailable Unavailable Reason for Visit Reason Onset Date Comments Medication Refill zolpidem (AMBIEN CR) 12.5 MG CR tablet Refill Request 05/04/2018 warfarin (COUMADIN) 7.5 MG tablet Encounter Details Date Type Department Care Team Description 05/04/2018 Refill [facility] Froylan Louise Ra, Medication Refill Chhaya VILLASEÑOR (zolpidem (AMBIEN CR) [address] [facility] 12.5 MG CR tablet); [place] [address] Refill Request (warfarin [phone] (COUMADIN) 7.5 MG tablet) Social History Tobacco Use Types [...] 4 or more times a w [place] 05/25/2021 alcohol? How many drinks containing alcohol [...] Notes Telephone Encounter - Carolin Dawson - 05/05/2018 1:29 PM CST Rx approved, fax to the [facility] Samir Shaft Mechanic TRONIC PREPRESS TECHNICIAN Telephone Encounter - Froylan Louise MD - 05/05/2018 10:31 AM CST Refilled. TRONIC PREPRESS TECHNICIAN Telephone Encounter - Wendi Lindsay RN - 05/04/2018 2:03 PM CST RX monitoring program ([place]) reviewed: CIRCULATION DIRECTOR reviewed- no concerns [place] profile: [email or web address] TRONIC PREPRESS TECHNICIAN Telephone Encounter - Souleymane Mejia - 05/04/2018 1:39 PM CST Controlled Substance Refill Request for zolpidem (AMBIEN CR) 12.5 MG CR tablet Problem List Complete: No PROVIDER TO CONSIDER COMPLETION OF PROBLEM LIST AND OVERVIEW/CONTROLLED SUBSTANCE AGREEMENT Last Written Prescription Date: 03/09/18 Last Fill Quantity: 30 TABLET, # refills: 0 Last Office Visit with [facility] primary care provider: 03/23/2018 WITH LUCINDA. Future Office visit: Next 5 appointments (look out 90 days) May 18, 2018 2:50 PM ELECTRONIC PREPRESS TECHNICIAN Return Visit with Luis A Charles MD [facility] ([facility]) [address] [place] [address] Controlled substance agreement on file: No. Processing: Fax Rx to [facility] pharmacy CIRCULATION DIRECTOR checked in past 3 months? No, route to RN Requested Prescriptions Pending Prescriptions Disp Refills ??? warfarin (COUMADIN) 7.5 MG tablet [Pharmacy Med Name: WARFARIN SODIUM 7.5 MG TABLET] Last Written Prescription Date: 01/23/18 Last Fill Quantity: 30 TABLET, # refills: 0 Last office visit: 03/23/2018 with prescribing provider: LUCINDA Future Office Visit: Next 5 appointments (look out 90 days) May 18, 2018 2:50 PM ELECTRONIC PREPRESS TECHNICIAN Return Visit with Luis A Charles MD [facility] ([facility]) [address] [place] [address] 30 tablet 0 Sig: TAKE 7.5 MG (ONE 7.5 MG TAB) ON MON, WED, FRI. AND TAKE 5 MG (ONE 5MG TAB) ON ALL OTHER DAYS Vitamin K Antagonists Failed 05/04/2018 1:34 PM Failed - INR is within goal [...] is 18 years of age or older TRONIC PREPRESS TECHNICIAN documented in this encounter Plan of Treatment Upcoming Encounters Date Type Specialty Care Team Description 05/20/2022 Lab Lab documented as of this encounter Visit Diagnoses Diagnosis Acute deep vein thrombosis (DVT) of prox imal vein of both lower extremities (H) Insomnia, unspecified type documented in this encounter Care Teams Pbx Technician Relationship Specialty Start Date End Date Froylan Louise MD PCP - General Family Practice 02/22/14 Froylan Louise MD PCP - Assigned PCP 03/13/14 08/25/18 Froylan Louise MD Assigned PCP 03/13/14 2 documented as of this encounter
--- OUTSIDE RECORDS SUMMARY | 2022-05-15 22:31 | XMS_ITS | Encounter Summary ---
:1955 Author Organization [facility] Address [address] [place] [address] Care Team Providers Name Role Phone Froylan Louise MD Primary Care Provider Unavailable Froylan Louise MD Unavailable Unavailable Froylan Louise MD Unavailable Unavailable Encounter Details Date Type Department Care Team Description 06/05/2018 Travel Social History Tobacco Use Types Packs/Day [...] you attend orthodox or Patient refused 2020 buddhist services? Do [...] on filedocumented in this encounter Care Teams Printer Helper Relationship Specialty Start Date End Date Froylan Louise MD PCP - General Family Practice 02/22/14 Froylan Louise MD PCP - Assigned PCP 03/13/14 08/25/18 Froylan Louise MD Assigned PCP 03/13/14 2 documented as of this encounter
--- OUTSIDE RECORDS SUMMARY | 2022-05-15 22:32 | XMS_ITS | Encounter Summary ---
:1955 Author Organization [facility] Address [address] [place] [address] Care Team Providers Name Role Phone Froylan Louise MD Primary Care Provider Unavailable Froylan Louise MD Unavailable Unavailable Froylan Louise MD Unavailable Unavailable Encounter Details Date Type Department Care Team Description 03/19/2018 Anticoagulation Therapy [facility] Long-term (current) Visit [facility] use of anticoagulants [address] [place] [address] Social History Tobacco Use Types [...] you attend spiritism or Patient refused 2020 catholic services? Do [...] Progress Notes Page, Esthela Conrad RN - 03/19/2018 4:04 PM CDT ANTICOAGULATION FOLLOW-UP CLINIC VISIT Patient Name: Virgil Christine Date: 03/19/2018 Contact Type: Face to Face SUBJECTIVE: Patient Findings Positives No Problem Findings OBJECTIVE INR Protime Date Value Ref Range Status 03/19/2018 2.1 (A) 0.86 - 1.14 Final ASSESSMENT / PLAN No question data found. Anticoagulation Summary as of 03/19/2018 INR goal 2.0-3.0 Today's INR 2.1 Warfarin maintenance plan 5 mg (5 mg x 1) on Mon, Wed, Fri; 7.5 mg (7.5 mg x 1) all other days Full warfarin instructions 5 mg on Mon, Wed, Fri; 7.5 mg all other days Weekly warfarin total 45 mg Plan last modified Yeimi Daniel, CINDY (02/12/2018) Next INR check 04/02/2018 Target end date Indications Long-term (current) use [...] Comme nts INR POINT OF CARE Routine 03/19/2018 Long-term (current) use of Results for this anticoagulants procedure are in the results section . documented in this encounter Results (ABNORMAL) INR point of care (03/19/2018) P athologist Signature INR Point of 2.1 (A) 0.86 - [facility] 1.14 [facility] Specimen (Source) Anatomical Location Collection Method / Collectio n Time Received Time / Laterality Volume 03/19/2018 Froylan Louise MD LAB - BLOOD ORDERABLES Performing Organization Address City/State/ZIP Code Phon e Number [facility] [id number] [place] [address] documented in this encounter Visit Diagnoses Diagnosis Long-term (current) use of anticoagulant s Encounter for long-term (current) use of anticoagulants documented in this encounter Care Teams Annealing Torch Operator Relationship Specialty Start Date End Date Froylan Louise MD PCP - General Family Practice 02/22/14 Froylan Louise MD PCP - Assigned PCP 03/13/14 08/25/18 Froylan Louise MD Assigned PCP 03/13/14 2 documented as of this encounter
--- OUTSIDE RECORDS SUMMARY | 2022-05-15 22:32 | XMS_ITS | Encounter Summary ---
:1955 Author Organization [facility] Address [facility] [place] [address] Care Team Providers Name Role Phone Froylan Louise MD Primary Care Provider Unavailable Froylan Louise MD Unavailable Unavailable Froylan Louise MD Unavailable Unavailable Reason for Referral Diagnostic Imaging CT Scan - Closed Specialty Diagnoses / Procedures Referred By Contact Refer red To Contact Radiology. Diagnoses Chronic deep vein thrombosis (DVT) of lower extremity, unspecified laterality, unspecified vein (H) Personal history of DVT (deep vein thrombosis) Dyspnea, unspecified type Froylan Louise MD Ct Scan Procedures CT Chest Pulmonary Embolism w Contrast CT Chest w Contrast [address] [place] [id number] [place], [place] [address] Phone: Referral ID Status Reason Start Date Expiration Date Visits Requ ested Visits Authorized [id number] Closed 03/11/2018 03/11/2019 1 1 iagnostic Imaging Ultrasound - Closed Specialty Diagnoses / Procedures Referred By Contact Refer red To Contact Radiology. Diagnoses Chronic deep vein thrombosis (DVT) of lower extremity, unspecified laterality, unspecified vein (H) Personal history of DVT (deep vein thrombosis) Dyspnea, unspecified type Froylan Louise MD Ultrasound Procedures US Lower Extremity Venous Duplex Bilateral [address] [place] [address] [place], [place] [address] Phone: Referral ID Status Reason Start Date Expiration Date Visits Requ ested Visits Authorized [id number] Closed 03/11/2018 03/11/2019 1 1 Reason for Visit Reason Onset Date Comments Nurse Advice Line 03/11/2018 Encounter Details Date Type Department Care Team Description 03/11/2018 Telephone [facility] Froylan Louise Ra, MD Nurse Advice Line [place] [address] [place] [address] Social History Tobacco Use [...] containing 4 or more times a w [place] 05/25/2021 alcohol? How many drinks containing [...] you attend mosque or Patient refused 2020 moravian services? Do [...] Telephone Encounter - Wendi Lindsay RN - 03/12/2018 10:47 AM CDT Pt informed and will call to scheduled the imaging Wendi Lindsay RN, BSN Telephone Encounter - Wendi Lindsay RN - 03/11/2018 1:09 PM CDT Mychart sent at pt will be at work. Wendi Lindsay RN, BSN Telephone Encounter - Froylan Louise MD - 03/11/2018 12:59 PM CDT We would recommend urgent care or ER if worsening SOB occurs. Recommend CT chest, US bilateral lower extremities repeat. Keep follow-up appt with me. Again - go to ER if symptoms worsen. Continue coumadin. Telephone Encounter - Wendi Lindsay RN - 03/11/2018 10:25 AM CDT Pt was in for INR check and states that he has been using his inhalers more and wondering if he is getting more blood clots in his lungs. He has had on occasions chest pain and waking up SOB. Pt is also retaining fluid in his legs. He is frustrated with his health overall as well as not getting and keeping his INR in range. He has seen a vascular specialist and had a bunch of labs done. Advised pt that he should be seen with PCP or someone to be checked but he requests a 4pm appt only with PCP whichhas been scheduled next week. Pt was advised to go to ED with SOB and chest pain but he states that he won't go even if i had a finger dangling I wouldn't go to the ER because that is the type of person I am. I will just wait until it gets better on it's own. Pt was counseled on the concerns but wants to see PCP. Pt is wondering if he could just get a CT scan or labs or change medications. Explained he would need to be seen to assess the most appropriate orders to be placed by the provider. He expressed understanding. He was offered multiple different appts as well but declined. Again, reiteratedthat he should go to the ED with any chest pain and SOB. FYI to PCP Wendi Lindsay RN, BSN documented in this encounter Plan of Treatment Upcoming Encounters Date Type Specialty Care Team Description 05/20/2022 Lab Lab documented as of this encounter Results CT Chest Pulmonary Embolism w Contrast (03/12/2018 5:50 PM CDT) Anatomical Region Laterality Modality Chest, SUBRAD CT BODY, UMP CT CHEST Comp uted Tomography Specimen (Source) Anatomical Location Collection Method / Collectio n Time Received Time / Laterality Volume Impressions 03/12/2018 10:56 PM CDT IMPRESSION: 1. No CT evidence of pulmonary embolism. 2. Suspected mild or early coronary chris ry calcification. 3. Several tiny pulmonary nodules, the l argest measuring 0.4 cm abutting the major fissure within the ri ght lower lobe. If the patient has risk factors for neoplastic disease, 12 month follow-up is recommended. 4. Hepatic fatty infiltration--possible etiologies include consumption of alcohol or excessive carbohydrate int karl, especially sugar/fructose. ??Metabolic syndrome com monly occurs in combination with nonalcoholic fatty liver disease. A lthough often reversible, nonalcoholic fatty liver disease can pro afia to steatohepatitis and cirrhosis. JOSE ALEXIS MD Narrative 03/12/2018 10:[address] CHEST PULMONARY EMBOLISM WITH CONTRAST 03/12/2018 5:50 PM HISTORY: Chronic leg thrombosis, SOB. A) PE suspected (CTA chest) [10]. Chronic deep vein thrombosis (DVT) of lower extremity, unspecified laterality, unspecified vein (H). Personal history of DVT (deep vein thrombosis). Dyspnea, unspeci fied type. CONTRAST DOSE: ??78 mL Isovue-370 COMPARISON: None available Radiation dose for this scan was reduced using automated exposure control, adjustment of the mA and/or kV according to patient size, or iterative reconstruction technique. FINDINGS: ??There is a good contrast анна us within the pulmonary arteries. No pulmonary arterial filling defects are demonstrated to indicate pulmonary embolism. Contrast wi thin the aorta is less optimal. Nonetheless, there is no eviden ce of aortic dissection. Mild coronary artery calcification is suspect ed. Several tiny pulmonary nodules are noted. The largest is within the right lower lobe measuring 0.4 cm abutting the major fiss ure. No pleural effusion or pneumothorax. Hepatic fatty infiltration is noted. Procedure Note Jose Alexis MD - 03/12/2018Formatt ing of this note might be different from the original. CT CHEST PULMONARY EMBOLISM WITH CONTRAS T 03/12/2018 5:50 PM HISTORY: Chronic leg thrombosis, SOB. A) PE suspected (CTA chest) [10]. Chronic deep vein thrombosis (DVT) of lower extremity, unspecified laterality, unspecified vein (H). Personal history of DVT (deep vein thrombosis). Dyspnea, unspeci fied type. CONTRAST DOSE: 78 mL Isovue-370 COMPARISON: None available Radiation dose for this scan was reduced using automated exposure control, adjustment of the mA and/or kV according to patient size, or iterative reconstruction technique. FINDINGS: There is a good contrast bolus within the pulmonary arteries. No pulmonary arterial filling defects are demonstrated to indicate pulmonary embolism. Contrast wi thin the aorta is less optimal. Nonetheless, there is no eviden ce of aortic dissection. Mild coronary artery calcification is suspect ed. Several tiny pulmonary nodules are noted. The largest is within the right lower lobe measuring 0.4 cm abutting the major fiss ure. No pleural effusion or pneumothorax. Hepatic fatty infiltration is noted. IMPRESSION: 1. No CT evidence of pulmonary embolism. 2. Suspected mild or early coronary chris ry calcification. 3. Several tiny pulmonary nodules, the l argest measuring 0.4 cm abutting the major fissure within the ri ght lower lobe. If the patient has risk factors for neoplastic disease, 12 month follow-up is recommended. 4. Hepatic fatty infiltration--possible etiologies include consumption of alcohol or excessive carbohydrate int karl, especially sugar/fructose. Metabolic syndrome commo nly occurs in combination with nonalcoholic fatty liver disease. A lthough often reversible, nonalcoholic fatty liver disease can pro afia to steatohepatitis and cirrhosis. JOSE ALEXIS MD Froylan Louise MD IMG CT ORDERABLES US Lower Extremity Venous Duplex Bilateral (03/12/2018 4:49 PM CDT) Anatomical Region Laterality Modality Vascular, Thigh, Leg Ultrasound Specimen (Source) Anatomical Location Collection Method / Collectio n Time Received Time / Laterality Volume Impressions 03/12/2018 6:50 PM CDT IMPRESSION: No acute DVT demonstrated. 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 ANITA STANTON MD Narrative 03/12/2018 6:50 PM CDT ULTRASOUND VENOUS LOWER EXTREMITY BILATERAL 03/12/2018 4:49 PM HISTORY: Chronic deep vein thrombosis (D VT) of lower extremity, unspecified laterality, unspecified vein (H). Personal history of DVT (deep vein thrombosis). Dyspnea, unspeci fied type. COMPARISON: August 21, 2013 TECHNIQUE: Ultrasound noriega scale, Color Doppler flow, and spectral Doppler waveform analysis performed. FINDINGS: Linear echogenicity in the rig ht popliteal vein compatible with chronic thrombus. The bilateral com mon femoral, superficial femoral, left popliteal and bilateral po sterior tibial veins are patent and fully compressible and demons trate normal venous Doppler flow. The visualized greater saphenous v eins are negative for thrombus. Procedure Note Anita Stanton MD - 03/12/2018Fo rmatting of this note might be different from the original. ULTRASOUND VENOUS LOWER EXTREMITY BILATE RAL 03/12/2018 4:49 PM HISTORY: Chronic deep vein thrombosis (D VT) of lower extremity, unspecified laterality, unspecified vein (H). Personal history of DVT (deep vein thrombosis). Dyspnea, unspeci fied type. COMPARISON: August 21, 2013 TECHNIQUE: Ultrasound noriega scale, Color Doppler flow, and spectral Doppler waveform analysis performed. FINDINGS: Linear echogenicity in the rig ht popliteal vein compatible with chronic thrombus. The bilateral com mon femoral, superficial femoral, left popliteal and bilateral po sterior tibial veins are patent and fully compressible and demons trate normal venous Doppler flow. The visualized greater saphenous v eins are negative for thrombus. IMPRESSION: No acute DVT demonstrated. C hronic thrombus of the right popliteal vein. ANITA STANTON MD Froylan Louise MD IMG US ORDERABLES documented in this encounter Visit Diagnoses Diagnosis Chronic deep vein thrombosis (DVT) of lo wer extremity, unspecified laterality, unspecified vein (H) - Primary Personal history of DVT (deep vein throm bosis) Personal history of venous thrombosis an d embolism Dyspnea, unspecified type Chronic deep vein thrombosis (DVT) of lo wer extremity, unspecified laterality, unspecified vein (H) Personal history of DVT (deep vein throm bosis) Personal history of venous thrombosis an d embolism Dyspnea, unspecified type Chronic deep vein thrombosis (DVT) of lo wer extremity, unspecified laterality, unspecified vein (H) Personal history of DVT (deep vein throm bosis) Personal history of venous thrombosis an d embolism Dyspnea, unspecified type documented in this encounter Care Teams Coil Connector Repairer Relationship Specialty Start Date End Date Froylan Louise MD PCP - General Family Practice 02/22/14 Froylan Louise MD PCP - Assigned PCP 03/13/14 08/25/18 Froylan Louise MD Assigned PCP 03/13/14 2 documented as of this encounter
--- OUTSIDE RECORDS SUMMARY | 2022-05-15 22:32 | XMS_ITS | Encounter Summary ---
:1955 Author Organization [facility] Address [address] [place] [address] Care Team Providers Name Role Phone Froylan Louise MD Primary Care Provider Unavailable Froylan Louise MD Unavailable Unavailable Froylan Louise MD Unavailable Unavailable Encounter Details Date Type Department Care Team Description 02/05/2018 Anticoagulation Therapy [facility] Audrey Louise Long-term (current) Visit Clinic Chhaya Dubose MD use of anticoagulants [address] [place] [address] Social History Tobacco Use Types [...] attend jehovah's witness or Patient refused 2020 anabaptism services? Do [...] encounter Progress Notes Wendi Lindsay RN - 02/05/2018 8:05 AM CDT ANTICOAGULATION FOLLOW-UP CLINIC VISIT Patient Name: Virgil Christine Date: 02/05/2018 Contact Type: Telephone SUBJECTIVE: Patient Findings Positives No Problem Findings OBJECTIVE INR Date Value Ref Range Status 02/04/2018 1.70 (H) 0.86 - 1.14 Final Comment: This test is intended for monitoring Coumadin therapy. Results are not accurate in patients with prolonged INR due to factor deficiency. ASSESSMENT / PLAN No question data found. Anticoagulation Summary as of 02/05/2018 INR goal 2.0-3.0 Today's INR 1.70! (02/04/2018) Warfarin maintenance plan 7.5 mg (7.5 mg x 1) on Mon, Wed, Fri; 5 mg (5 mg x 1) all other days Full warfarin instructions 02/05: 7.5 mg; Otherwise 7.5 mg on Mon, Wed, Fri; 5 mg all other days Weekly warfarin total 42.5 mg Plan last modified Wendi Lindsay RN (01/23/2018) Next INR check 02/11/2018 Target end date Indications Long-term (current) use [...] anticoagulants documented in this encounter Care Teams Glass Washer And Carrier Relationship Specialty Start Date End Date Froylan Louise MD PCP - General Family Practice 02/22/14 Froylan Louise MD PCP - Assigned PCP 03/13/14 08/25/18 Froylan Louise MD Assigned PCP 03/13/14 2 documented as of this encounter
--- OUTSIDE RECORDS SUMMARY | 2022-05-15 22:32 | XMS_ITS | Encounter Summary ---
:1955 Author Organization [facility] Address [address] [place] [address] Care Team Providers Name Role Phone Froylan Louise MD Primary Care Provider Unavailable Froylan Louise MD Unavailable Unavailable Froylan Louise MD Unavailable Unavailable Reason for Visit Reason Onset Date Comments Refill Request 01/23/2018 warfarin (COUMADIN) 5 MG tablet Encounter Details Date Type Department Care Team Description 01/23/2018 Refill [facility] Froylan Louise Ra y, Refill Request (warfarin Chhaya VILLASEÑOR (COUMADIN) 5 MG tablet) [address] [place] [address] Social History Tobacco Use [...] you attend gnosticist or Patient refused 2020 yazdanism services? Do [...] this encounter Miscellaneous Notes Telephone Encounter - Carlos Alberto Black - 01/23/2018 11:49 AM CDT Requested Prescriptions Pending Prescriptions Disp Refills ??? warfarin (COUMADIN) 5 MG tablet 60 tablet 0 Last Written Prescription Date: 12/10/2017 Last Fill Quantity: 60 tablet, # refills: 0 Last office visit: 12/10/2017 with prescribing provider: 01/23/2018 Future Office Visit: Next 5 appointments (look out 90 days) Feb 10, 2018 2:20 PM CDT Return Visit with Luis A Charles MD [facility] ([facility]) [address] [place] [id number] Sig: Take 2 tablets (10 mg) by mouth daily Vitamin K Antagonists Failed 01/23/2018 11:49 AM Failed - INR is within goal in the past 6 weeks Confirm INR is within goal in the past 6 weeks. Recent Labs Lab Test 01/22/18 1607 INR 2.30* Passed - Recent (12 mo) or future [...] (H) documented in this encounter Care Teams Police Inspector Relationship Specialty Start Date End Date Froylan Louise MD PCP - General Family Practice 02/22/14 Froylan Louise MD PCP - Assigned PCP 03/13/14 08/25/18 Froylan Louise MD Assigned PCP 03/13/14 2 documented as of this encounter
--- OUTSIDE RECORDS SUMMARY | 2022-05-15 22:32 | XMS_ITS | Encounter Summary ---
:1955 Author Organization [facility] Address [address] [place] [address] Care Team Providers Name Role Phone Froylan Louise MD Primary Care Provider Unavailable Froylan Louise MD Unavailable Unavailable Frolyan Louise MD Unavailable Unavailable Encounter Details Date Type Department Care Team Description 02/04/2018 Orders Only [facility] Per killian history of DVT (deep vein thrombosis); [facility] Long-term (current) use of a nticoagulants [Z79.01] [address] [place] [address] Social History Tobacco Use [...] 4 or more times a w [place] 05/25/2021 alcohol? How many drinks containing alcohol [...] you attend voodoo or Patient refused 2020 presybeterian services? Do [...] Lindsay RN - 02/05/2018 8:05 AM CDT See ACC encounter Wendi Lindsay RN, BSN documented in this encounter Plan of Treatment Upcoming Encounters Date Type Specialty Care Team Description 05/20/2022 Lab Lab documented as of this encounter Procedures Procedure Name Priority Date/Time Associated Diagnosis Comme nts INR Routine 02/04/2018 3:55 PM Personal history of DV T Results for this CDT (deep vein throm bosis) procedure are in Long-term (current) use the results of anticoagulants section. [Z79.01] documented in this encounter Results (ABNORMAL) INR (02/04/2018 3:55 PM CDT) athologist Signature INR 1.70 (H) 0.86 - 1.14 02/04/2018 [place] 4:00 PM CDT [facility] Comment: This test is intended for monitoring Cou madin therapy. ??Results are not accurate in patients with prolonged INR due to factor deficiency. Specimen Anatomical Collection Method Collection Time Receive d Time (Source) Location / / Volume Laterality Blood specimen 02/04/2018 3:55 PM 018 3:58 (specimen) CDT PM CDT Froylan Louise MD LAB - BLOOD ORDERABLES Performing Organization Address City/State/ZIP Code Phon e Number [facility] [address] [place] [address] documented in this encounter Visit Diagnoses Diagnosis Personal history of DVT (deep vein throm bosis) Personal history of venous thrombosis an d embolism Long-term (current) use of anticoagulant s [Z79.01] Encounter for long-term (current) use of anticoagulants documented in this encounter Care Teams Diesel Mechanic Relationship Specialty Start Date End Date Froylan Louise MD PCP - General Family Practice 02/22/14 Froylan Louise MD PCP - Assigned PCP 03/13/14 08/25/18 Froylan Louise MD Assigned PCP 03/13/14 2 documented as of this encounter
--- OUTSIDE RECORDS SUMMARY | 2022-05-15 22:32 | XMS_ITS | Encounter Summary ---
:1955 Author Organization [facility] Address [address] [place] [address] Care Team Providers Name Role Phone Froylan Louise MD Primary Care Provider Unavailable Froylan Louise MD Unavailable Unavailable Froylan Louise MD Unavailable Unavailable Reason for Visit Reason Onset Date Comments Refill Request 03/21/2018 loperamide (IMODIUM) 2 MG capsule Encounter Details Date Type Department Care Team Description 03/21/2018 [facility] Froylan Louise Ra, Refill Request Chhaya VILLASEÑOR (loperamide (IMODIUM) [address] MG capsule) [place] [address] Social History Tobacco Use [...] you attend religion or Patient refused 2020 sabianist services? Do [...] this encounter Miscellaneous Notes Telephone Encounter - Thais Clifton - 03/21/2018 4:26 PM CDT loperamide (IMODIUM) 2 MG capsule Last Written Prescription Date: 09/22/2017 Last Fill Quantity: 480 capsule, # refills: 1 Last Office Visit: 12/10/2017, Dani Future Office visit: Next 5 appointments (look out 90 days) Mar 23, 2018 4:00 PM CDT [facility] with [facility] [address] [facility] [address] May 18, 2018 2:50 PM SHOW HORSE DRIVER Return Visit with Luis A Charles MD [facility] ([facility]) [address] [facility] [address] Routing refill request to provider for review/approval because: Drug not on the FMG, UMP or Health refill protocol or controlled substance documented in this encounter Plan of Treatment Upcoming Encounters Date Type Specialty Care Team Description 05/20/2022 Lab Lab documented as of this encounter Visit Diagnoses Diagnosis H/O ulcerative colitis Personal history of other diseases of di gestive system documented in this encounter Care Teams Climate Change Analyst Relationship Specialty Start Date End Date Froylan Louise MD PCP - General Family Practice 02/22/14 Froylan Louise MD PCP - Assigned PCP 03/13/14 08/25/18 Froylan Louise MD Assigned PCP 03/13/14 2 documented as of this encounter
--- OUTSIDE RECORDS SUMMARY | 2022-05-15 22:32 | XMS_ITS | Encounter Summary ---
:1955 Author Organization [facility] Address [address] [place] [address] Care Team Providers Name Role Phone Froylan Louise MD Primary Care Provider Unavailable Froylan Louise MD Unavailable Unavailable Froylan Louise MD Unavailable Unavailable Reason for Visit Reason Onset Date Comments Refill Request 03/03/2018 REBECCA HFA 17 MCG/ ACT Inhaler Encounter Details Date Type Department Care Team Description 03/03/2018 Refill [facility] Froylan Louise Ra y, Refill Request (REBECCA Shaver MD HFA 17 MCG/ACT Inhaler) [address] [place] [address] Social History Tobacco Use [...] you attend sabianism or Patient refused 2020 episcopalian services? Do [...] Telephone Encounter - Wendi Lindsay RN - 03/03/2018 7:44 AM CDT Routing refill request to provider for review/approval because: Labs out of range: ACT<20 Wendi Lindsay RN, BSN Telephone Encounter - Thais Ayala - 03/03/2018 7:22 AM CDT Requested Prescriptions Pending Prescriptions Disp Refills ??? ATROVENT HFA 17 MCG/ACT Inhaler [Pharmacy Med Name: ATROVENT 17 MCG HFA INHALER] Last Written Prescription Date: 07/14/2017 Last Fill Quantity: 3 inhaler, # refills: 1 Last office visit: 12/10/2017 with prescribing provider: Dani Babb.Jean Inhaler 0 Sig: INHALE 2 PUFFS INTO THE LUNGS EVERY 6 HOURS Asthma Maintenance Inhalers - Anticholinergics Failed 03/03/2018 1:46 AM Failed - Asthma control assessment score within normal limits in last 6 months ACT Total Scores 01/24/2016 06/13/2017 12/10/2017 ACT [...] because of your asthma? 0 0 0 Passed - Patient is age 12 years or older Passed - Recent (6 mo) or future (30 days) visit within the authorizing provider's specialty Patient had office visit in the last 6 months or has a visit in the next 30 days with authorizing provider or within the authorizing provider's specialty. See Patient Info tab in inbasket, or Choose Columns in Meds & Orders section of the refill encounter. documented in this encounter Plan of Treatment Upcoming Encounters Date Type Specialty Care Team Description 05/20/2022 Lab Lab documented as of this encounter Visit Diagnoses Diagnosis Mild persistent asthma without complicat ion Unspecified asthma documented in this encounter Care Teams Legal Service Specialist Relationship Specialty Start Date End Date Froylan Louise MD PCP - General Family Practice 02/22/14 Froylan Louise MD PCP - Assigned PCP 03/13/14 08/25/18 Froylan Louise MD Assigned PCP 03/13/14 2 documented as of this encounter
--- OUTSIDE RECORDS SUMMARY | 2022-05-15 22:32 | XMS_ITS | Encounter Summary ---
:1955 Author Organization [facility] Address [facility]ly [facility] [place] [address] Care Team Providers Name Role Phone Froylan [...] Embolism w Contrast CT Chest w Contrast [address] [place] [id number] [place], [place] [phone] Phone: Referral ID Status Reason Start Date Expiration Date Visits Requ ested Visits Authorized [id number] Closed 03/11/2018 03/11/2019 1 1 Reason for Visit Diagnostic Imaging CT Scan - Closed Specialty Diagnoses / Procedures Referred By Contact Refer red To Contact Radiology. Diagnoses Chronic deep vein thrombosis (DVT) of lower extremity, unspecified laterality, unspecified vein (H) Personal history of DVT (deep vein thrombosis) Dyspnea, unspecified type Froylan Louise MD Ct Scan Procedures CT Chest Pulmonary Embolism w Contrast CT Chest w Contrast [address] [place] [address] [place], [place] [address] Phone: Referral ID Status Reason Start Date Expiration Date Visits Requ ested Visits Authorized [id number] Closed 03/11/2018 03/11/2019 1 1 Encounter Details Date Type Department Care Team Description 03/12/2018 Hospital Encounter [facility] Froylan Louise onic deep vein thrombosis (DVT) of lower extremity, unspecified laterality, unspecified vein (H); Audrey Dubose MD Personal history of DVT (gino p vein thrombosis); [address] Dyspnea, unspecified type MARISSA [place] [id number] Social History Tobacco Use Types Packs/Day Years [...] you attend uatsdin or Patient refused 2020 mandaeism services? Do [...] on file documented as of this encounter Medications at Time of Discharge Medication Sig Dispensed Refills Start Date End Date albuterol (PROAIR Inhale 2 puffs into 3 Inhaler 3 7 03/23/2018 HFA/PROVENTIL the lungs every 6 HFA/VENTOLIN HFA) 108 hours as needed for (90 BASE) MCG/ACT shortness of breath InhalerIndications: / dyspnea or Mild persistent asthma wheezing without complication amoxicillin-clavulanate Take 1 tablet by 20 tablet 0 201703/23/2018 (AUGMENTIN) 875-125 MG mouth 2 times daily per tabletIndications: Local infection of skin and subcutaneous tissue ATROVENT HFA 17 MCG/ACT INHALE 2 PUFFS INTO 38.7 Inhaler 0 0 03/05/2018 03/23/2018 InhalerIndications: THE LUNGS EVERY 6 Mild persistent asthma HOURS without complication beclomethasone (QVAR) INHALE 2 PUFFS INTO 3 Inhaler 3 06/1303/23/2018 80 MCG/ACT THE LUNGS 2 TIMES InhalerIndications: DAILY Mild persistent asthma, uncomplicated cyclobenzaprine Take 1 tablet (10 30 tablet 2 06/13/2017 (FLEXERIL) 10 MG mg) by mouth 3 tabletIndications: times daily as Cramp of limb needed for muscle spasms furosemide (LASIX) 20 Take 0.5 tablets 90 tablet 3 06/13/20 17 08/30/2018 MG tabletIndications: (10 mg) by mouth 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 edema Take as needed for leg swelling. loperamide (IMODIUM) 2 TAKE 3-4 CAPSULES 480 capsule 1 09/2203/21/2018 MG capsuleIndications: (6-8 MG) BY MOUTH 3 H/O ulcerative colitis TIMES DAILY NEEDED FOR DIARRHEA order for Equipment being ordered: sport stocking 2 pair knee high 20-30 mmHg 2 Units 0 12/26/2017 01/09/2019 DMEIndications: Postthrombotic syndrome Fax to [facility] - [phone] order for Equipment being 1 Units 0 12/10/2017 9 DMEIndications: Acute ordered: deep vein thrombosis compression (DVT) of proximal vein stockings 1 pair, of both lower fit to size 20-30 extremities (H) mmHg oxyCODONE-acetaminophen Take 1-2 tablets by 20 tablet 0 06/11/2018 (PERCOCET) 5-325 MG per mouth every 6 hours tabletIndications: as needed for 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 sildenafil (VIAGRA) 50 Take 0.5-1 tablets 6 tablet 3 06/1305/25/2021 MG tabletIndications: (25-50 mg) by mouth Erectile dysfunction, daily as needed unspecified erectile dysfunction type terazosin (HYTRIN) 2 MG Take 1 capsule (2 90 capsule 1 12/1010/08/2018 capsuleIndications: mg) by mouth At Benign prostatic Bedtime hyperplasia with weak urinary stream triamcinolone (KENALOG) APPLY TOPICALLY 30 g 1 017 06/09/2018 0.1 % creamIndications: TWICE DAILY Lichen planus warfarin (COUMADIN) 5 5 mg daily except 30 tablet 0 018 04/27/2018 MG tabletIndications: M/W/F or as Acute deep vein directed thrombosis (DVT) of proximal vein of both lower extremities (H) warfarin (COUMADIN) 7.5 7.5 mg (7.5 mg x 1) 30 tablet 0 08/201705/04/2018 MG tabletIndications: on Mon, Wed, Fri; 5 Acute deep vein mg (5 mg x 1) all thrombosis (DVT) of other days proximal vein of both lower extremities (H) zolpidem (AMBIEN CR) TAKE 1 TABLET BY 30 tablet 0 8 05/04/2018 12.5 MG CR MOUTH NIGHTLY tabletIndications: NEEDED FOR SLEEP Insomnia, unspecified type documented as of this encounter Plan of Treatment Upcoming Encounters Date Type Specialty Care Team Description 05/20/2022 Lab Lab documented as of this encounter Procedures Procedure Name Priority Date/Time Associated Diagnosis Comme nts CT CHEST PULMONARY STAT 03/12/2018 5:50 PM Chronic deep vei n Results for this EMBOLISM W CONTRAST CDT thrombosis (DVT) of charlotte kaur are in lower extremity, the results unspecified section. laterality, unspecified vein (H) Personal history of DVT (deep vein thrombosis) Dyspnea, unspecified type documented in this encounter Results CT Chest Pulmonary Embolism [...] MD Froylan Louise MD IMG CT ORDERABLES documented in this encounter Visit Diagnoses Diagnosis Chronic deep vein thrombosis (DVT) of lo wer extremity, unspecified laterality, unspecified vein (H) Personal history of DVT (deep vein throm bosis) Personal history of venous thrombosis an d embolism Dyspnea, unspecified type documented in this encounter Administered Medications Inactive Administered Medications - up to 3 most recent administrations Medication Order MAR Action Action Date Dose Rate Site iopamidol (ISOVUE-370) solution 78 Given 03/12/2018 5:36 PM CDT 78 mLs mL 78 mL, Intravenous, ONCE, On Herlinda 03/12/18 at 1715, For 1 dose sodium chloride 0.9 % bag 500mL for CT scan Given 02/22 5:36 PM CDT 100 mLs flush use Intravenous, 100 mL, ONCE, On Herlinda 03/12/18 at 1715, For 1 dose, This entry is for use by Radiology to intermittently used as a flush in patients receiving a CT scan. documented in this encounter Care Teams Piece Presser Relationship Specialty Start Date End Date Froylan Louise MD PCP - General Family Practice 02/22/14 Froylan Louise MD PCP - Assigned PCP 03/13/14 08/25/18 Froylan Louise MD Assigned PCP 03/13/14 2 documented as of this encounter
--- OUTSIDE RECORDS SUMMARY | 2022-05-15 22:32 | XMS_ITS | Encounter Summary ---
:1955 Author Organization [place] Address [facility] [place] [address] Care Team Providers Name Role Phone Froylan Louise MD Primary Care Provider Unavailable Froylan Louise MD Unavailable Unavailable Froylan Louise MD Unavailable Unavailable Reason for Visit Reason Comments RECHECK [address] Araceli dickey thrombotic syndrome & DVT Encounter Details Date Type Department Care Team Description 02/10/2018 Office Visit [facility] Luis A Charles diolipin antibody positive (Primary Dx); [facility] MD Ana Personal history of DVT (deep vein throm bosis); [facility] [address] [facility] Local infection of skin and subcutaneous tissue [address] [facility] [address] [place] [phone] Social History Tobacco Use Types Packs/Day Years Used Date Smoking Tobacco: Former Cigarettes 2 25 Quit : 08/04/2006 Smokeless Tobacco: Never Comments: 2004 Alcohol Use Standard Drinks/Week Comments Yes 0 (1 standard drink = 0.6 oz pure alcoho l) 4 BEERS A WEEK Alcohol Habits Answer Date Recorded How often do you have a drink containing 4 or more times a w [place] 05/25/2021 alcohol? How many drinks containing [...] you attend episcopalian or Patient refused 2020 baptist services? Do [...] Sign Reading Time Taken Comments Blood Pressure 134/79 02/10/2018 2:36 PM CDT Pulse 76 02/10/2018 2:36 PM CDT Temperature - - Respiratory Rate - - Oxygen Saturation 98% 02/10/2018 2:36 PM CDT Inhaled Oxygen Concentration - - Weight 103 kg (227 lb) 02/10/2018 2:36 PM CDT Height - - Body Mass Index 32.11 12/10/2017 2:26 PM CDT documented in this encounter Progress Notes Luis A Charles MD - 02/10/2018 2:20 PM CDT Vascular Medicine Progress Note Virgil Christine is a 62 year old male who who is here today for follow-up on his hypercoagulable labs and to see how he is he doing with compression treatment for his PTS Interval History Patient swelling is much better, symptoms are much less than before especially after using the compression stockings and leg elevation His hypercoagulable workup yielded no significant results other than positive for lupus anticoagulant which he tested +10 years ago it still positive Physical Exam BP: 134/79 Pulse: 76 SpO2: 98 % Vitals: 02/10/18 1436 Weight: 227 lb (103 kg) Vital Signs with Ranges Pulse: [76] 76 BP: (134)/(79) 134/79 SpO2: [98 %] 98 % @[id number]@ Constitutional: awake, alert, cooperative, no apparent distress, [...] bilaterally. Neuropsychiatric: Normal affect, memory, insight. Pulses: Same as previous exam . No carotid bruits appreciated. Medications Data No results found for this or any previous visit (from the past 24 hour(s)). 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) Comment: Continue with Coumadin for now Plan: We will retest lupus anticoagulant in 12 weeks from now (Z86.718) Personal history of DVT (deep vein thrombosis) Comment: Continue with compression stockings and Coumadin Plan: If patient test positive for lupus anticoagulant 1 more time in 12 weeks then he will should probably be on anticoagulation for life as this is the second DVT episode in addition to previous DVT episode and a PE (L08.9) Local infection of skin and subcutaneous tissue Comment: Looks like MRSA infection/staph infection community-acquired Plan: sulfamethoxazole-trimethoprim (BACTRIM DS/SEPTRA DS) 800-160 MG per tablet Summary: Follow-up with the patient in 3 months from now Luis A Charles MD documented in this encounter Nursing Notes Kathryn Yang - 02/10/2018 2:20 PM CDT Virgil Christine is a 62 year old male who presents for: Chief Complaint Patient presents with ??? RECHECK [address] Charles - Post thrombotic syndrome & DVT Vitals: Vitals: 02/10/18 1436 BP: 134/79 BP Location: Left arm Patient Position: Chair Cuff Size: Adult Large Pulse: 76 SpO2: 98% Weight: 227 lb (103 kg) BMI: Estimated body mass index is 32.11 kg/(m^2) as calculated from the following: Height as of 12/10/17: 5' 10.5 (1.791 m). Weight as of this encounter: 227 lb (103 kg). Pain Score: Data Unavailable Kathryn Yang MA documented in this encounter Plan of Treatment Upcoming Encounters Date Type Specialty Care Team Description 05/20/2022 Lab Lab documented as of this encounter Visit Diagnoses Diagnosis Anticardiolipin antibody positive - Prim dillon Other and unspecified nonspecific immuno logical findings Personal history of DVT (deep vein throm bosis) Personal history of venous thrombosis an d embolism Local infection of skin and subcutaneous tissue Unspecified local infection of skin and subcutaneous tissue documented in this encounter Care Teams Wireless Sales Expert Relationship Specialty Start Date End Date Froylan Louise MD PCP - General Family Practice 02/22/14 Froylan Louise MD PCP - Assigned PCP 03/13/14 08/25/18 Froylan Louise MD Assigned PCP 03/13/14 2 documented as of this encounter
--- OUTSIDE RECORDS SUMMARY | 2022-05-15 22:32 | XMS_ITS | Encounter Summary ---
:1955 Author Organization [place] Address [address] [facility] [place] [address] Care Team Providers Name Role Phone Froylan Louise MD Primary Care Provider Unavailable Froylan Louise MD Unavailable Unavailable Froylan Louise MD Unavailable Unavailable Reason for Visit Reason Onset Date Comments Medication Question 02/24/2018 antibiotic Encounter Details Date Type Department Care Team Description 02/24/2018 Telephone [facility] Luis A Charles Medicat ion Question Vascular Clinic Jesse Perez MD (antibiotic) [address] [facility] [address] [place] [address] [place] [address] (Wo rk) Social History Tobacco [...] containing 4 or more times a w [place] 05/25/2021 alcohol? How many drinks containing [...] you attend restorationism or Patient refused 2020 jewish services? Do [...] this encounter Miscellaneous Notes Telephone Encounter - Liz Ott RN - 02/24/2018 12:26 PM CDT Patient called and states that hes had little improvement from antibiotic. He wanted to know if he should get a refill? RN spoke with DR Charles who would like patient to try another refill and call back after completion. Rn called patient with the above and the patient states that he feels light headed on the medicationand stopped taking it Dr Charles would like patient to have Augmentin twice daily 875mg. Order entered patient sent [employer] message with f/u date as advised Rossy Ott RN, BSN documented in this encounter Plan of Treatment Upcoming Encounters Date Type Specialty Care Team Description 05/20/2022 Lab Lab documented as of this encounter Visit Diagnoses Diagnosis Local infection of skin and subcutaneous tissue - Primary Unspecified local infection of skin and subcutaneous tissue documented in this encounter Care Teams Hl7 Interface Developer Relationship Specialty Start Date End Date Froylan Louise MD PCP - General Family Practice 02/22/14 Froylan Louise MD PCP - Assigned PCP 03/13/14 08/25/18 Froylan Louise MD Assigned PCP 03/13/14 2 documented as of this encounter
--- OUTSIDE RECORDS SUMMARY | 2022-05-15 22:32 | XMS_ITS | Encounter Summary ---
:1955 Author Organization [facility] Address [address] [place] [address] Care Team Providers Name Role Phone Froylan Louise MD Primary Care Provider Unavailable Froylan Louise MD Unavailable Unavailable Froylan Louise MD Unavailable Unavailable Encounter Details Date Type Department Care Team Description 02/11/2018 Anticoagulation Therapy [facility] Audrey Louise Long-term (current) Visit Clinic Chhaya Dubose MD use of anticoagulants [address] [place] [address] Social History Tobacco Use Types [...] containing 4 or more times a w [place] 05/25/2021 alcohol? How many drinks containing alcohol [...] you attend yazdanism or Patient refused 2020 restorationist services? Do [...] documented as of this encounter Progress Notes Yeimi Daniel RN - 02/12/2018 10:07 AM CDT ANTICOAGULATION FOLLOW-UP CLINIC VISIT Patient Name: Virgil Christine Date: 02/11/2018 Contact Type: Telephone/ Patient notified by telephone. Also mailed a copy of the AVS to patients home address. SUBJECTIVE: Patient Findings Positives No Problem Findings OBJECTIVE INR Date Value Ref Range Status 02/11/2018 2.00 (H) 0.86 - 1.14 Final Comment: This test is intended for monitoring Coumadin therapy. Results are not accurate in patients with prolonged INR due to factor deficiency. ASSESSMENT / PLAN INR assessment THER Recheck INR In: 2 WEEKS INR Location Outside lab Anticoagulation Summary as of 02/11/2018 INR goal 2.0-3.0 Today's INR 2.00 Warfarin maintenance plan 5 mg (5 mg x 1) on Mon, Wed, Fri; 7.5 mg (7.5 mg x 1) all other days Full warfarin instructions 5 mg on Mon, Wed, Fri; 7.5 mg all other days Weekly warfarin total 45 mg Plan last modified Yeimi Daniel RN (02/12/2018) Next INR check 02/26/2018 Target end date Indications Long-term (current) use [...] made based on physician directed care plan. Yeimi Daniel RN documented in this encounter Plan of Treatment Upcoming Encounters Date Type Specialty Care Team Description 05/20/2022 Lab Lab documented as of this encounter Visit Diagnoses Diagnosis Long-term (current) use of anticoagulant s Encounter for long-term (current) use of anticoagulants documented in this encounter Care Teams Plastics Fabricator Relationship Specialty Start Date End Date Froylan Louise MD PCP - General Family Practice 02/22/14 Froylan Louise MD PCP - Assigned PCP 03/13/14 08/25/18 Froylan Louise MD Assigned PCP 03/13/14 2 documented as of this encounter
--- OUTSIDE RECORDS SUMMARY | 2022-05-15 22:32 | XMS_ITS | Encounter Summary ---
:1955 Author Organization [facility] Address [address] [place] [address] Care Team Providers Name Role Phone Froylan Louise MD Primary Care Provider Unavailable Froylan Louise MD Unavailable Unavailable Froylan Louise MD Unavailable Unavailable Reason for Visit Reason Onset Date Comments Refill Request 01/23/2018 warfarin (COUMADIN) 7.5 MG tablet Encounter Details Date Type Department Care Team Description 01/23/2018 Refill [facility] Froylan Louise Ra, Refill Request (warfarin Chhaya VILLASEÑOR (COUMADIN) 7.5 MG [id number] [facility] tablet) [place] [address] Social History Tobacco Use [...] you attend buddhist or Patient refused 2020 jewish services? Do [...] Telephone Encounter - Wendi Lindsay RN - 01/23/2018 10:16 AM CDT Prescription approved per [facility] Refill Protocol. Wendi Lindsay RN, BSN Telephone Encounter - Carlos Alberto Black - 01/23/2018 6:54 AM CDT Requested Prescriptions Pending Prescriptions Disp Refills ??? warfarin (COUMADIN) 7.5 MG tablet [Pharmacy Med Name: WARFARIN SODIUM 7.5 MG TABLET] 30 tablet 0 Last Written Prescription Date: 12/22/2017 Last Fill Quantity: 30 tablet, # refills: 0 Last office visit: 12/10/2017 with prescribing provider: 12/10/2017 Future Office Visit: Next 5 appointments (look out 90 days) Feb 10, 2018 2:20 PM CDT Return Visit with Luis A Charles MD [facility] ([facility]) [address] [facility] [phone] Sig: TAKE 1 TABLET (7.5 MG) BY MOUTH DAILY Vitamin K Antagonists Failed 01/23/2018 1:27 AM Failed - INR is within goal [...] (H) documented in this encounter Care Teams Principal Engineer Relationship Specialty Start Date End Date Froylan Louise MD PCP - General Family Practice 02/22/14 Froylan Louise MD PCP - Assigned PCP 03/13/14 08/25/18 Froylan Louise MD Assigned PCP 03/13/14 2 documented as of this encounter
--- OUTSIDE RECORDS SUMMARY | 2022-05-15 22:32 | XMS_ITS | Encounter Summary ---
:1955 Author Organization [place] Address [address] [place] [address] Care Team Providers Name Role Phone Froylan Louise MD Primary Care Provider Unavailable Froylan Louise MD Unavailable Unavailable Froylan Louise MD Unavailable Unavailable Encounter Details Date Type Department Care Team Description 01/22/2018 Anticoagulation Therapy [facility] Audrey Louise Long-term (current) Visit Clinic Chhaya Dubose MD use of anticoagulants [address] [place] [address] Social History Tobacco Use Types [...] you attend buddhism or Patient refused 2020 sikh services? Do [...] encounter Progress Notes Wendi Lindsay RN - 01/23/2018 8:02 AM CDT ANTICOAGULATION FOLLOW-UP CLINIC VISIT Patient Name: Virgil Chrsitine Date: 01/23/2018 Contact Type: Telephone SUBJECTIVE: Patient Findings Positives No Problem Findings OBJECTIVE INR Date Value Ref Range Status 01/22/2018 2.30 (H) 0.86 - 1.14 Final Comment: This test is intended for monitoring Coumadin therapy. Results are not accurate in patients with prolonged INR due to factor deficiency. ASSESSMENT / PLAN No question data found. Anticoagulation Summary as of 01/22/2018 INR goal 2.0-3.0 Today's INR 2.30 Warfarin maintenance plan 7.5 mg (7.5 mg x 1) on Mon, Wed, Fri; 5 mg (5 mg x 1) all other days Full warfarin instructions 8: 5 mg; 8/5: 5 mg; Otherwise 7.5 mg on Mon, Wed, Fri; 5 mg all other days Weekly warfarin total 42.5 mg Plan last modified Wendi Lindsay RN (01/23/2018) Next INR check 02/05/2018 Target end date Indications Long-term (current) use [...] anticoagulants documented in this encounter Care Teams Bricklayer Sewer Relationship Specialty Start Date End Date Froylan Louise MD PCP - General Family Practice 02/22/14 Froylan Louise MD PCP - Assigned PCP 03/13/14 08/25/18 Froylan Louise MD Assigned PCP 03/13/14 2 documented as of this encounter
--- OUTSIDE RECORDS SUMMARY | 2022-05-15 22:32 | XMS_ITS | Encounter Summary ---
:1955 Author Organization [facility] Address [address] [place] [address] Care Team Providers Name Role Phone Froylan Louise MD Primary Care Provider Unavailable Froylan Louise MD Unavailable Unavailable Froylan Louise MD Unavailable Unavailable Reason for Referral Diagnostic Imaging Ultrasound - Closed Specialty Diagnoses / Procedures Referred By Contact Refer red To Contact Radiology. Diagnoses Chronic deep vein thrombosis (DVT) of lower extremity, unspecified laterality, unspecified vein (H) Personal history of DVT (deep vein thrombosis) Dyspnea, unspecified type Froylan Louise MD Ultrasound Procedures US Lower Extremity Venous Duplex Bilateral [address] [place] [id number] [place], [place] [phone] Phone: Referral ID Status Reason Start Date Expiration Date Visits Requ ested Visits Authorized [id number] Closed 03/11/2018 03/11/2019 1 1 Reason for Visit Diagnostic Imaging Ultrasound - Closed Specialty Diagnoses / Procedures Referred By Contact Refer red To Contact Radiology. Diagnoses Chronic deep vein thrombosis (DVT) of lower extremity, unspecified laterality, unspecified vein (H) Personal history of DVT (deep vein thrombosis) Dyspnea, unspecified type Froylan Louise MD Ultrasound Procedures US Lower Extremity Venous Duplex Bilateral [address] [place] [id number] [place], [place] [phone] Phone: Referral ID Status Reason Start Date Expiration Date Visits Requ ested Visits Authorized [id number] Closed 03/11/2018 03/11/2019 1 1 Encounter Details Date Type Department Care Team Description 03/12/2018 Hospital Encounter [facility] Dani, Froylan Chr onic deep vein thrombosis (DVT) of lower extremity, unspecified laterality, unspecified vein (H); Audrey Dubose MD Personal history of DVT (gino p vein thrombosis); [address] Dyspnea, unspecified type [place] [address] Social History Tobacco Use Types Packs/Day [...] you attend hoahaoism or Patient refused 2020 muslim services? Do [...] Fax to [facility] - [phone] order for Equipment being 1 Units 0 [...] Name Priority Date/Time Associated Diagnosis Comme nts US LOWER EXTREMITY Routine 03/12/2018 4:49 PM Chronic deep vei n Results for this VENOUS DUPLEX CDT thrombosis (DVT) of procedu re are in BILATERAL lower extremity, the results unspecified section. laterality, unspecified vein (H) Personal history of DVT (deep vein thrombosis) Dyspnea, unspecified type documented in this encounter Results US Lower Extremity Venous Duplex Bilateral (03/12/2018 [...] type documented in this encounter Care Teams Marine Rigger Relationship Specialty Start Date End Date Froylan Louise MD PCP - General Family Practice 02/22/14 Froylan Louise MD PCP - Assigned PCP 03/13/14 08/25/18 Froylan Louise MD Assigned PCP 03/13/14 2 documented as of this encounter
--- OUTSIDE RECORDS SUMMARY | 2022-05-15 22:32 | XMS_ITS | Encounter Summary ---
:1955 Author Organization [place] Address [facility] [place] [address] Care Team Providers Name Role Phone Froylan Louise MD Primary Care Provider Unavailable Froylan Louise MD Unavailable Unavailable Froylan Louise MD Unavailable Unavailable Reason for Visit Reason Onset Date Comments Medication Follow-up 03/09/2018 Encounter Details Date Type Department Care Team Description 03/09/[address] [facility] Fredy Wilkes [facility] Follow[facility] Jesse Sharp MD [address] [place] [phone] [place] [id number] (Wo rk) Social History Tobacco Use Types [...] you attend worship or Patient refused 2020 quaker services? Do [...] Telephone Encounter - Liz Ott RN - 03/09/2018 3:36 PM CDT Provider would like patient have one more round of antibiotics Med ordered as verbally given Spoke with patient, states understanding Rossy Ott RN, BSN Telephone Encounter - Hilda Felipe MA - 03/09/2018 9:38 AM CDT Reason for call: Symptom Symptom or request: Pt is calling to advise that he has completed 10 days of antibiotic and his leg is feeling better. Pt would like to know if he should get another round of antibiotics? Duration (how long have symptoms been present): 2 weeks Have you been treated for this before? Yes Additional comments: please call pt if he needs antibiotic Phone number to reach patient: Home number on file [phone] (home) Best Time: Any time Can we leave a detailed message on this number? YES documented in this encounter Plan of Treatment Upcoming Encounters Date Type Specialty Care Team Description 05/20/2022 Lab Lab documented as of this encounter Visit Diagnoses Diagnosis Local infection of skin and subcutaneous tissue Unspecified local infection of skin and subcutaneous tissue documented in this encounter Care Teams Machine Spreader Relationship Specialty Start Date End Date Froylan Louise MD PCP - General Family Practice 02/22/14 Froylan Louise MD PCP - Assigned PCP 03/13/14 08/25/18 Froylan Louise MD Assigned PCP 03/13/14 2 documented as of this encounter
--- OUTSIDE RECORDS SUMMARY | 2022-05-15 22:32 | XMS_ITS | Encounter Summary ---
:1955 Author Organization [facility] Address [address] [place] [address] Care Team Providers Name Role Phone Froylan Louise MD Primary Care Provider Unavailable Froylan Louise MD Unavailable Unavailable Froylan Louise MD Unavailable Unavailable Encounter Details Date Type Department Care Team Description 03/13/2018 [facility] Froylan Louise Ra, MD [address] [address] [place] [address] Social History Tobacco Use [...] attend jehovah's witness or Patient refused 2020 buddhism services? Do [...] this encounter Miscellaneous Notes Telephone Encounter - Shakir Hernandez - 03/13/2018 1:46 PM CDT Patient called back message given. Telephone Encounter - Esthela Corea RN - 03/13/2018 1:39 PM CDT LM for call back see message below Esthela Corea RN No PE - we can discuss other specifics at his follow-up visit ? No new DVT - has findings of chronic thrombus and should stay on coumadin and follow-up with vascular as planned (3 month follow-up in April was recommended). ??We can discuss at his follow-up visit documented in this encounter Plan of Treatment Upcoming Encounters Date Type Specialty Care Team Description 05/20/2022 Lab Lab documented as of this encounter Visit Diagnoses Not on filedocumented in this encounter Care Teams Optical Effects Camera Operator Relationship Specialty Start Date End Date Froylan Louise MD PCP - General Family Practice 02/22/14 Froylan Louise MD PCP - Assigned PCP 03/13/14 08/25/18 Froylan Louise MD Assigned PCP 03/13/14 2 documented as of this encounter
--- OUTSIDE RECORDS SUMMARY | 2022-05-15 22:32 | XMS_ITS | Encounter Summary ---
:1955 Author Organization [facility] Address Pending [facility] to [facility] [place] [address] Care Team Providers Name Role Phone Froylan Louise MD Primary Care Provider Unavailable Froylan Louise MD Unavailable Unavailable Froylan Louise MD Unavailable Unavailable Reason for Visit Reason Comments RECHECK Encounter Details Date Type Department Care Team Description 03/23/2018 Office Visit [facility] Froylan Louise Mild pers istent asthma without complication (Primary Dx); Clinic Chhaya Dubose MD SOB (shortness of breath); [id number] [facility] Chronic deep vein thrombosis (DVT) of lower extremity, unspecified laterality, unspecified vein (H); [place], [place] [address] Social History Tobacco Use Types Packs/Day Years Used Date Smoking Tobacco: Former Cigarettes 2 25 Quit : 08/04/2006 Smokeless Tobacco: Never Comments: 2004 Alcohol Use Standard Drinks/Week Comments Yes 0 (1 standard drink = 0.6 oz pure alcoho l) 4 BEERS A WEEK Alcohol Habits Answer Date Recorded How often do you have a drink containing 4 or more times a w [place] 05/25/2021 alcohol? How many drinks containing alcohol [...] you attend christian or Patient refused 2020 anabaptism services? Do [...] Reading Time Taken Comments Blood Pressure 130/80 03/23/2018 4:01 PM CDT Pulse 74 03/23/2018 4:01 PM CDT Temperature 36.8 ??C (98.3 ??F) 03/23/2018 4:01 PM CDT Respiratory Rate - - Oxygen Saturation 97% 03/23/2018 4:01 PM CDT Inhaled Oxygen Concentration - - Weight 104.8 kg (231 lb) 03/23/2018 4:01 PM CDT Height 179.1 cm (5' 10.5) 03/23/2018 4:01 PM CDT Body Mass Index 32.68 03/23/2018 4:01 PM CDT documented in this encounter Patient Instructions Patient InstructionsFroylan Louise MD - 03/23/2018 4:00 PM CDT Symbicort 2 puffs 2 times daily Albuterol as needed for shortness of breath documented in this encounter Progress Notes Froylan Louise MD - 03/23/2018 4:00 PM CDT SUBJECTIVE: Virgil Christine is a 62 year old male who presents to clinic today for the following health issues: Patient here for follow-up of ongoing shortness of breath. Denies chest pain. Patient with history of mild persistent asthma. He is wondering if it is time to change inhalers. Patient with history of DVT in 2013 [...] PE in September 2017. He underwent mechanical and medical thrombectomy. Patient was started on Coumadin ULTRASOUND VENOUS LOWER EXTREMITY BILATERAL 03/12/2018 4:49 PM IMPRESSION: No acute DVT demonstrated. 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 CT CHEST PULMONARY EMBOLISM WITH CONTRAST 03/12/2018 5:50 PM MPRESSION: 1. No CT evidence of pulmonary embolism. 2. Suspected mild or early coronary artery calcification. 3. Several tiny pulmonary nodules, the largest measuring 0.4 cm abutting the major fissure within the right lower lobe. If the patient has risk factors for neoplastic disease, 12 month follow-up is recommended. 4. Hepatic fatty infiltration--possible etiologies include consumption of alcohol or excessive carbohydrate intake, especially sugar/fructose. Metabolic syndrome commonly occurs in combination with nonalcoholic fatty liver disease. Although often reversible, nonalcoholic fatty liver disease can progress to steatohepatitis and Cirrhosis. Patient with history of insomnia. He reports difficulties falling asleep and feels fatigued throughout the day. Problem list and histories reviewed & adjusted, as indicated. Additional history: as documented Patient Active Problem List Diagnosis ??? Anticardiolipin antibody positive ??? Mild persistent asthma ??? Health Retirement ? ? Hyperlipidemia LDL goal <160 ??? [...] Location: [facility] ??? RESECTION ABDOMINAL PERINEAL Social History Substance Use Topics ??? Smoking status: Former Smoker Packs/day: 2.00 Years: 25.00 Types: Cigarettes Quit date: 08/04/2006 ??? Smokeless tobacco: Never Used Comment: 2004 ??? Alcohol use Yes Comment: 4 BEERS A WEEK Family History Problem Relation Age of Onset ??? Diabetes Mother ??? Colon Cancer No family hx of Reviewed and updated as needed this visit by clinical staff Tobacco Allergies Meds Med Hx Surg Hx Fam Hx Soc Hx Reviewed and updated as needed this visit by Provider ROS: RESP: as noted above CV: as noted above PSYCHIATRIC: POSITIVE for insomnia, as noted above This document serves as a record of the services and decisions personally performed and made by Froylan Louise MD. It was created on his behalf by Sofia Altman, a trained medical radiation tech. The creation of this document is based on the provider's statements to the medical radiation tech. Sofia Altman 4:08 PM March 23, 2018 OBJECTIVE: BP 130/80 (BP Location: Right arm, Patient Position: Chair, Cuff Size: Adult Regular) Pulse 74 Temp 98.3 ??F (36.8 ??C) (Oral) Ht 1.791 m (5' 10.5) Wt 104.8 kg (231 lb) SpO2 97% BMI 32.68 kg/m2 Body mass index is 32.68 kg/(m^2). GENERAL: healthy, alert and no distress HENT: ear canals and TM's normal RESP: lungs clear to auscultation - no rales, rhonchi or wheezes CV: regular rate and rhythm, normal S1 S2, no S3 or S4, no murmur, click or rub, no peripheral edemaand peripheral pulses strong Spirometry: mild airway obstructive FEV1/FVC: 0.68 FEV1: 72% predicted ASSESSMENT/PLAN: 1. Mild persistent asthma without complication Shortness of breath appears to be secondary to asthma. Discussed changing to long-acting beta agonist with inhaled steroid as below. Follow-up if not improving. - budesonide-formoterol (SYMBICORT) 160-4.5 MCG/ACT Inhaler; Inhale 2 puffs into the lungs 2 times daily Dispense: 1 Inhaler; Refill: 2 - albuterol (PROAIR HFA/PROVENTIL HFA/VENTOLIN HFA) 108 (90 Base) MCG/ACT inhaler; Inhale 2 puffs into the lungs every 6 hours as needed for shortness of breath / dyspnea or wheezing Dispense: 3 Inhaler; Refill: 3 2. SOB (shortness of breath) - Spirometry, Breathing Capacity: Normal Order, Clinic Performed 3. Chronic deep vein thrombosis (DVT) of lower extremity, unspecified laterality, unspecified vein (H) Recommend long-term anticoagulation with Coumadin with chronic DVT. He can follow-up with vascular for their opinion. He may be able to switch to DOAC in future. 4. Chronic insomnia - traZODone (DESYREL) 50 MG tablet; Take 1-2 tablets (50-100 mg) by mouth nightly as needed for sleep Dispense: 60 tablet; Refill: 1 The information in this document, created by the medical radiation tech for me, accurately reflects the services I personally performed and the decisions made by me. I have reviewed and approved this document for accuracy prior to leaving the patient care area. March 23, 2018 4:45 PM Froylan Louise MD [facility] documented in this encounter Plan of Treatment Upcoming Encounters Date Type Specialty Care Team Description 05/20/2022 Lab Lab documented as of this encounter Procedures Procedure Name Priority Date/Time Associated Diagnosis Comme [facility] SPIROMETRY, BREATH Routine 03/23/2018 4:14 PM CDT SOB (shor tness of CAPACITY breath) documented in this encounter Visit Diagnoses Diagnosis Mild persistent asthma without complicat ion - Primary Unspecified asthma SOB (shortness of breath) Shortness of breath Chronic deep vein thrombosis (DVT) of lo wer extremity, unspecified laterality, unspecified vein (H) Chronic insomnia Insomnia, unspecified documented in this encounter Care Teams Contract Administration Specialist Relationship Specialty Start Date End Date Froylan Louise MD PCP - General Family Practice 02/22/14 Froylan Louise MD PCP - Assigned PCP 03/13/14 08/25/18 Froylan Louise MD Assigned PCP 03/13/14 2 documented as of this encounter
--- OUTSIDE RECORDS SUMMARY | 2022-05-15 22:32 | XMS_ITS | Encounter Summary ---
:1955 Author Organization [place] Address [address] [place] [address] Care Team Providers Name Role Phone Froylan Louise MD Primary Care Provider Unavailable Froylan Louise MD Unavailable Unavailable Froylan Louise MD Unavailable Unavailable Encounter Details Date Type Department Care Team Description 01/22/2018 Orders Only [facility] Per killian history of DVT (deep vein thrombosis); [facility] Long-term (current) use of a nticoagulants [Z79.01] [address] [place] [address] Social History Tobacco Use [...] containing 4 or more times a w [place] 05/25/2021 alcohol? How many drinks containing alcohol [...] you attend shinto or Patient refused 2020 confucianism services? Do [...] Progress Notes Wendi Lindsay RN - 01/23/2018 8:05 AM CDT See Acc encounter Wendi Lindsay RN, BSN documented in this encounter Plan of Treatment Upcoming Encounters Date Type Specialty Care Team Description 05/20/2022 Lab Lab documented as of this encounter Procedures Procedure Name Priority Date/Time Associated Diagnosis Comme nts INR Routine 01/22/2018 4:07 PM Personal history of DV T Results for this CDT (deep vein throm bosis) procedure are in Long-term (current) use the results of anticoagulants section. [Z79.01] documented in this encounter Results (ABNORMAL) INR (01/22/2018 4:07 PM CDT) P athologist Signature INR 2.30 (H) 0.86 - 1.14 01/22/2018 [place] 4:14 PM CDT [facility] Comment: This test is intended for monitoring Cou madin therapy. ??Results are not accurate in patients with prolonged INR due to factor deficiency. Specimen Anatomical Collection Method Collection Time Receive d Time (Source) Location / / Volume Laterality Blood specimen 01/22/2018 4:07 PM 018 4:13 (specimen) CDT PM CDT Froylan Louise MD LAB - BLOOD ORDERABLES Performing Organization Address City/State/ZIP Code Phon e Number [facility] [id number] [place] [address] documented in this encounter Visit Diagnoses Diagnosis Personal history of DVT (deep vein throm bosis) Personal history of venous thrombosis an d embolism Long-term (current) use of anticoagulant s [Z79.01] Encounter for long-term (current) use of anticoagulants documented in this encounter Care Teams Superintendent Ammunition Storage Relationship Specialty Start Date End Date Froylan Louise MD PCP - General Family Practice 02/22/14 Froylan Louise MD PCP - Assigned PCP 03/13/14 08/25/18 Froylan Louise MD Assigned PCP 03/13/14 2 documented as of this encounter
--- OUTSIDE RECORDS SUMMARY | 2022-05-15 22:32 | XMS_ITS | Encounter Summary ---
:1955 Author Organization [facility] Address [address] [place] [address] Care Team Providers Name Role Phone Froylan Louise MD Primary Care Provider Unavailable Froylan Louise MD Unavailable Unavailable Froylan Louise MD Unavailable Unavailable Encounter Details Date Type Department Care Team Description 02/25/2018 Orders Only [facility] Per killian history of DVT (deep vein thrombosis); [facility] Long-term (current) use of a nticoagulants [Z79.01] [address] [place] [address] Social History Tobacco Use [...] 4 or more times a w [place] 05/25/2021 alcohol? How many drinks containing alcohol [...] you attend mormonism or Patient refused 2020 nondenominational services? Do [...] Date/Time Associated Diagnosis Comme nts INR Routine 02/25/2018 3:52 PM Personal history of DV T Results for this CDT (deep vein throm bosis) procedure are in Long-term (current) use the results of anticoagulants section. [Z79.01] documented in this encounter Results (ABNORMAL) INR (02/25/2018 3:52 PM CDT) athologist Signature INR 3.20 (H) 0.86 - 1.14 02/25/2018 [place] 3:55 PM CDT [facility] Comment: This test is intended for monitoring Cou madin therapy. ??Results are not accurate in patients with prolonged INR due to factor deficiency. Specimen Anatomical Collection Method Collection Time Receive d Time (Source) Location / / Volume Laterality Blood specimen 02/25/2018 3:52 PM 018 3:54 (specimen) CDT PM CDT Froylan Louise MD LAB - BLOOD ORDERABLES Performing Organization Address City/State/ZIP Code Phon e Number [facility] [id number] [place] [address] documented in this encounter Visit Diagnoses Diagnosis Personal history of DVT (deep vein throm bosis) Personal history of venous thrombosis an d embolism Long-term (current) use of anticoagulant s [Z79.01] Encounter for long-term (current) use of anticoagulants documented in this encounter Care Teams Principal Technical Writer Relationship Specialty Start Date End Date Froylan Louise MD PCP - General Family Practice 02/22/14 Froylan Louise MD PCP - Assigned PCP 03/13/14 08/25/18 Froylan Louise MD Assigned PCP 03/13/14 2 documented as of this encounter
--- OUTSIDE RECORDS SUMMARY | 2022-05-15 22:32 | XMS_ITS | Encounter Summary ---
:1955 Author Organization [place] Address [address] [place] [address] Care Team Providers Name Role Phone Froylan Louise MD Primary Care Provider Unavailable Froylan Louise MD Unavailable Unavailable Froylan Louise MD Unavailable Unavailable Reason for Visit Reason Onset Date Comments Nurse Advice Line 01/16/2018 Encounter Details Date Type Department Care Team Description 01/16/2018 Telephone [facility] Froylan Louise Ra, MD Nurse Advice Line [address] [address] Social History Tobacco Use [...] you attend presybeterian or Patient refused 2020 sabianism services? Do [...] Telephone Encounter - Wendi Lindsay RN - 01/16/2018 9:40 AM CDT Pt informed Wendi Lindsay RN, BSN Telephone Encounter - Wendi Lindsay RN - 01/16/2018 9:25 AM CDT Per patient since he has been back on warfarin he has noticed a significant increase in hair loss ishake my head getting out of the shower and hair just goes flying. He is very concerned about this.This is a very rare side effect of the medication per AV RN Message handled by Nurse Triage with [facility] - provider name: Froylan Louise. Since patient had a major surgery and ICU stay this is not an uncommon occurrence and typically getsbetter after 4-6 months. The hair follicles arrest due to the stress from major surgeries and body changes (ex ). This is called telogen effluvium. LMTRC to discuss with patient. If he is not wanting to stay on warfarin he will need to discuss thiswith vascular at his upcoming appt in January. Wendi Lindsay RN, BSN documented in this encounter Plan of Treatment Upcoming Encounters Date Type Specialty Care Team Description 05/20/2022 Lab Lab documented as of this encounter Visit Diagnoses Not on filedocumented in this encounter Care Teams Cradle Slide Maker Relationship Specialty Start Date End Date Froylan Louise MD PCP - General Family Practice 02/22/14 Froylan Louise MD PCP - Assigned PCP 03/13/14 08/25/18 Froylan Louise MD Assigned PCP 03/13/14 2 documented as of this encounter
--- OUTSIDE RECORDS SUMMARY | 2022-05-15 22:32 | XMS_ITS | Encounter Summary ---
:1955 Author Organization [facility] Address [address] [place] [address] Care Team Providers Name Role Phone Froylan Louise MD Primary Care Provider Unavailable Froylan Louise MD Unavailable Unavailable Froylan Louise MD Unavailable Unavailable Encounter Details Date Type Department Care Team Description 03/11/2018 Anticoagulation Therapy [facility] Long-term (current) Visit [facility] use of anticoagulants [address] [place] [address] Social History Tobacco Use Types [...] you attend mosque or Patient refused 2020 anabaptism services? Do [...] encounter Progress Notes Wendi Lindsay RN - 03/11/2018 10:25 AM CDT ANTICOAGULATION FOLLOW-UP CLINIC VISIT Patient Name: Virgil Christine Date: 03/11/2018 Contact Type: Face to Face SUBJECTIVE: Patient Findings Positives Unexplained INR or factor level change OBJECTIVE INR Protime Date Value Ref Range Status 03/11/2018 1.8 (A) 0.86 - 1.14 Final ASSESSMENT / PLAN INR assessment SUB Recheck INR In: 10 DAYS INR Location Clinic Anticoagulation Summary as of 03/11/2018 INR goal 2.0-3.0 Today's INR 1.8! Warfarin maintenance plan 5 mg (5 mg x 1) on Mon, Wed, Fri; 7.5 mg (7.5 mg x 1) all other days Full warfarin instructions 5 mg on Mon, Wed, Fri; 7.5 mg all other days Weekly warfarin total 45 mg No change documented Wendi Lindsay RN Plan last modified Yeimi Daniel RN (02/12/2018) Next INR check 03/20/2018 Target end date Indications Long-term (current) use [...] Comme nts INR POINT OF CARE Routine 03/11/2018 Long-term (current) use of Results for this anticoagulants procedure are in the results section . documented in this encounter Results (ABNORMAL) INR point of care (03/11/2018) P athologist Signature INR Point of 1.8 (A) 0.86 - [facility] 1.14 [facility] Specimen (Source) Anatomical Location Collection Method / Collectio n Time Received Time / Laterality Volume 03/11/2018 Froylan Louise MD LAB - BLOOD ORDERABLES Performing Organization Address City/State/ZIP Code Phon e Number [facility] [id number] [place] [address] documented in this encounter Visit Diagnoses Diagnosis Long-term (current) use of anticoagulant s Encounter for long-term (current) use of anticoagulants documented in this encounter Care Teams Quality Process Auditor Relationship Specialty Start Date End Date Froylan Louise MD PCP - General Family Practice 02/22/14 Froylan Louise MD PCP - Assigned PCP 03/13/14 08/25/18 Froylan Louise MD Assigned PCP 03/13/14 2 documented as of this encounter
--- OUTSIDE RECORDS SUMMARY | 2022-05-15 22:32 | XMS_ITS | Encounter Summary ---
:1955 Author Organization [place] Address [address] [place] [address] Care Team Providers Name Role Phone Froylan Louise MD Primary Care Provider Unavailable Froylan Louise MD Unavailable Unavailable Froylan Louise MD Unavailable Unavailable Reason for Visit Reason Onset Date Comments Orders 01/21/2018 Encounter Details Date Type Department Care Team Description 01/21/2018 Telephone [facility] Froylan Louise Ra, MD Orders [address] [address] Social History Tobacco Use [...] containing 4 or more times a w [place] 05/25/2021 alcohol? How many drinks containing alcohol [...] you attend religious or Patient refused 2020 protestant services? Do [...] Telephone Encounter - Wendi Lindsay RN - 01/21/2018 10:22 AM CDT INR ordered for this week Wendi Lindsay RN, BSN documented in this [...] anticoagulants documented in this encounter Care Teams Can Reconditioner Relationship Specialty Start Date End Date Froylan Louise MD PCP - General Family Practice 02/22/14 Froylan Louise MD PCP - Assigned PCP 03/13/14 08/25/18 Froylan Louise MD Assigned PCP 03/13/14 2 documented as of this encounter
--- OUTSIDE RECORDS SUMMARY | 2022-05-15 22:32 | XMS_ITS | Encounter Summary ---
:1955 Author Organization [facility] Address [address] [place] [address] Care Team Providers Name Role Phone Froylan Louise MD Primary Care Provider Unavailable Froylan Louise MD Unavailable Unavailable Froylan Louise MD Unavailable Unavailable Encounter Details Date Type Department Care Team Description 02/11/2018 Orders Only [facility] Per killian history of DVT (deep vein thrombosis); [facility] Long-term (current) use of a nticoagulants [Z79.01] [address] [place] [address] Social History Tobacco Use [...] attend oriental orthodox or Patient refused 2020 yazidism services? Do [...] encounter Progress Notes Wendi Lindsay RN - 02/13/2018 7:02 AM CDT See acc encounter Wendi Lindsay RN, BSN documented in this encounter Plan of Treatment Upcoming Encounters Date Type Specialty Care Team Description 05/20/2022 Lab Lab documented as of this encounter Procedures Procedure Name Priority Date/Time Associated Diagnosis Comme nts INR Routine 02/11/2018 3:55 PM Personal history of DV T Results for this CDT (deep vein throm bosis) procedure are in Long-term (current) use the results of anticoagulants section. [Z79.01] documented in this encounter Results (ABNORMAL) INR (02/11/2018 3:55 PM CDT) P athologist Signature INR 2.00 (H) 0.86 - 1.14 02/11/2018 [place] 4:32 PM CDT [facility] Comment: This test is intended for monitoring Cou madin therapy. ??Results are not accurate in patients with prolonged INR due to factor deficiency. Specimen Anatomical Collection Method Collection Time Receive d Time (Source) Location / / Volume Laterality Blood specimen 02/11/2018 3:55 PM 018 4:31 (specimen) CDT PM CDT Froylan Louise MD LAB - BLOOD ORDERABLES Performing Organization Address City/State/ZIP Code Phon e Number [facility] [address] [place] [address] documented in this encounter Visit Diagnoses Diagnosis Personal history of DVT (deep vein throm bosis) Personal history of venous thrombosis an d embolism Long-term (current) use of anticoagulant s [Z79.01] Encounter for long-term (current) use of anticoagulants documented in this encounter Care Teams Fire Sprinkler Fitter Relationship Specialty Start Date End Date Froylan Louise MD PCP - General Family Practice 02/22/14 Froylan Louise MD PCP - Assigned PCP 03/13/14 08/25/18 Froylan Louise MD Assigned PCP 03/13/14 2 documented as of this encounter
--- OUTSIDE RECORDS SUMMARY | 2022-05-15 22:32 | XMS_ITS | Encounter Summary ---
:1955 Author Organization [facility] Address [address] [place] [address] Care Team Providers Name Role Phone Froylan Louise MD Primary Care Provider Unavailable Froylan Louise MD Unavailable Unavailable Froylan Louise MD Unavailable Unavailable Encounter Details Date Type Department Care Team Description 02/25/2018 Anticoagulation Therapy [facility] Audrey Louise Long-term (current) Visit Clinic Chhaya Dubose MD use of anticoagulants [address] [place] [address] Social History Tobacco Use Types [...] you attend sikh or Patient refused 2020 faith services? Do [...] Progress Notes Page, Esthela Conrad RN - 02/25/2018 4:14 PM CDT LM for call back to review dosing Esthela Corea RN ANTICOAGULATION FOLLOW-UP CLINIC VISIT Patient Name: Virgil Christine Date: 02/25/2018 Contact Type: Telephone- with pt Pt expressed understanding and acceptance of the plan. Pt had no further questions at this time. Advised can call back to clinic at any time with concerns. SUBJECTIVE: Patient Findings Positives Antibiotic use or infection Comments On antibiotic OBJECTIVE INR Date Value Ref Range Status 02/25/2018 3.20 (H) 0.86 - 1.14 Final Comment: This test is intended for monitoring Coumadin therapy. Results are not accurate in patients with prolonged INR due to factor deficiency. ASSESSMENT / PLAN No question data found. Anticoagulation Summary as of 02/25/2018 INR goal 2.0-3.0 Today's INR Warfarin maintenance plan 5 mg (5 mg x 1) on Mon, Wed, Fri; 7.5 mg (7.5 mg x 1) all other days Full warfarin instructions 02/26: 5 mg; 03/05: 5 mg; Otherwise 5 mg on Mon, Wed, Fri; 7.5 mg all other days Weekly warfarin total 45 mg Plan last modified Yeimi Daniel, CINDY (02/12/2018) Next INR check 03/11/2018 Target end date Indications Long-term (current) use [...] physician directed care plan. Esthela Corea RN documented in this encounter Plan of Treatment Upcoming Encounters Date Type Specialty Care Team Description 05/20/2022 Lab Lab documented as of this encounter Visit Diagnoses Diagnosis Long-term (current) use of anticoagulant s Encounter for long-term (current) use of anticoagulants documented in this encounter Care Teams Informatics Application Analyst Relationship Specialty Start Date End Date Froylan Louise MD PCP - General Family Practice 02/22/14 Froylan Louise MD PCP - Assigned PCP 03/13/14 08/25/18 Froylan Louise MD Assigned PCP 03/13/14 2 documented as of this encounter
--- OUTSIDE RECORDS SUMMARY | 2022-05-15 22:32 | XMS_ITS | Encounter Summary ---
:1955 Author Organization [facility] Address [id number] [place] [address] Care Team Providers Name Role Phone Froylan Louise MD Primary Care Provider Unavailable Froylan Louise MD Unavailable Unavailable Froylan Louise MD Unavailable Unavailable Reason for Visit Reason Onset Date Comments Refill Request 03/08/2018 zolpidem (AMBIEN CR) 12.5 MG CR tablet Encounter Details Date Type Department Care Team Description 03/08/2018 Refill [facility] Froylan Louise Ra, Refill Request (zolpidem Chhaya VILLASEÑOR (AMBIEN CR) 12.5 MG CR [address] [facility] tablet) [place] [address] Social History Tobacco Use [...] containing 4 or more times a w [place] 05/25/2021 alcohol? How many drinks containing alcohol [...] you attend yarsanism or Patient refused 2020 druze services? Do [...] this encounter Miscellaneous Notes Telephone Encounter - Homa Gracia - 03/09/2018 1:18 PM CDT rx faxed to [phone]. KENYATTA Villaseñor Telephone Encounter - Wendi Lindsay RN - 03/09/2018 7:19 AM CDT RX [place] program ([place]) reviewed: MAINTENANCE CRAFTSMAN reviewed- no concerns [place] profile: [email or web address] Telephone Encounter - Thais Ayala - 03/08/2018 11:02 AM CDT Controlled Substance Refill Request for zolpidem (AMBIEN CR) 12.5 MG CR tablet Problem List Complete: No PROVIDER TO CONSIDER COMPLETION OF PROBLEM LIST AND OVERVIEW/CONTROLLED SUBSTANCE AGREEMENT Last Written Prescription Date: 12/10/2017 Last Fill Quantity: 30 tablet, # refills: 0 Last Office Visit with [facility] primary care provider: 12/10/2017Dani Controlled substance agreement on file: No. Processing: Staff will hand deliver Rx to on-site pharmacy MAINTENANCE CRAFTSMAN checked in past 3 months? No, route to RN documented in this encounter Plan of Treatment Upcoming Encounters Date Type Specialty Care Team Description 05/20/2022 Lab Lab documented as of this encounter Visit Diagnoses Diagnosis Insomnia, unspecified type documented in this encounter Care Teams Cooperative Education Coordinator Relationship Specialty Start Date End Date Froylan Louise MD PCP - General Family Practice 02/22/14 Froylan Louise MD PCP - Assigned PCP 03/13/14 08/25/18 Froylan Louise MD Assigned PCP 03/13/14 2 documented as of this encounter
--- OUTSIDE RECORDS SUMMARY | 2022-05-15 22:33 | XMS_ITS | Encounter Summary ---
:1955 Author Organization [facility] Address [address] [place] [address] Care Team Providers Name Role Phone Froylan Louise MD Primary Care Provider Unavailable Froylan Louise MD Unavailable Unavailable Froylan oLuise MD Unavailable Unavailable Reason for Visit Reason Comments RECHECK Encounter Details Date Type Department Care Team Description 12/10/2017 Office Visit [facility] Froylan Louise gino p vein thrombosis (DVT) of proximal vein of both lower extremities (H) (Primary Dx); Clinic Chhaya Dubose MD Benign prostatic hyperplasia with weak urinary stream; [address] [facility] Anticardiolipin antibody pos itive; [place], [place] Insomnia, unsp ecified type [address] Social History Tobacco Use Types Packs/Day [...] 4 or more times a w [place] 05/25/2021 alcohol? How many drinks containing alcohol [...] you attend nondenominational or Patient refused 2020 hoahaoism services? Do [...] Sign Reading Time Taken Comments Blood Pressure 127/70 12/10/2017 2:26 PM CDT Pulse 78 12/10/2017 2:26 PM CDT Temperature 36.9 ??C (98.4 ??F) 12/10/2017 2:26 PM CDT Respiratory Rate - - Oxygen Saturation 96% 12/10/2017 2:26 PM CDT Inhaled Oxygen Concentration - - Weight 100.2 kg (221 lb) 12/10/2017 2:26 PM CDT Height 179.1 cm (5' 10.5) 12/10/2017 2:26 PM CDT Body Mass Index 31.26 12/10/2017 2:26 PM CDT documented in this encounter Progress Notes Froylan Louise MD - 12/10/2017 2:20 PM CDT SUBJECTIVE: Virgil Christine is a 62 year old male who presents to clinic today for the following health issues: 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 Prior clot in the right lower extremity DVT in 2013 thought to be provoked with surgery after colectomy and has seen hematology who thought him safe to stop Coumadin. Patient had significant leg and lower back pain while working in [place] and was found to have extensive bilateral lower extremity DVT and PE in September 2017. He underwent mechanical and medical thrombectomy. Patient started on Coumadin and is doing well. He reports stable peripheral edema. Denies any redness orpain in the calf. Patient with history of BPH. Improved with Hytrin. Problem list and histories reviewed & adjusted, as indicated. Additional history: as documented Patient Active Problem List Diagnosis ??? Anticardiolipin antibody positive ??? Mild persistent asthma ??? Health Fdc ? ? Hyperlipidemia LDL goal <160 ??? Personal history of DVT (deep vein thrombosis) ??? Status post unicompartmental knee replacement, right ??? Postthrombotic syndrome ??? Advanced directives, counseling/discussion (ACP) ??? Elevated fasting glucose ??? S/P colectomy ??? Venous stasis ulcer, right ??? Other ulcerative colitis without complication (H) Past Surgical History: Procedure Laterality Date [...] updated as needed this visit by Provider Problems ROS: RESP: NEGATIVE for significant cough or SOB CV: as noted above : as noted above This document serves as a record of the services and decisions personally performed and made by Froylan Louise MD. It was created on his behalf by Sofia Altman, a trained medical office assistant. The creation of this document is based on the provider's statements to the medical office assistant. Sofia Altman 2:45 PM December 10, 2017 OBJECTIVE: BP 127/70 (BP Location: Right arm, Patient Position: Chair, Cuff Size: Adult Regular) Pulse 78 Temp 98.4 ??F (36.9 ??C) (Oral) Ht 1.791 m (5' 10.5) Wt 100.2 kg (221 lb) SpO2 96% BMI 31.26 kg/m2 Body mass index is 31.26 kg/(m^2). GENERAL: healthy, alert and no distress CV: 2+ right leg swelling, no erythema, nontender ASSESSMENT/PLAN: 1. Acute deep vein thrombosis (DVT) of proximal vein of both lower extremities (H) Recommend lifelong anticoagulation with second lifetime DVT especially with now unprovoked bilateralextensive DVT with PE and positive anticardiolipin antibody. Patient is agreeable to plan. Recommendfollow up ultrasound bilateral lower extremities in 1 month to make sure there is no chronic clot present. INR today. Briefly discussed option of direct Xa inhibitors but coumadin may be more appropriate with ability for reversal given occupation. - warfarin (COUMADIN) 5 MG tablet; Take 5 mg by mouth - warfarin (COUMADIN) 7.5 MG tablet; Take 7.5 mg by mouth - order for DME; Equipment being ordered: compression stockings 1 pair, fit to size 20-30 mmHg Dispense: 1 Units; Refill: 0 - US Lower Extremity Venous Duplex Bilateral; Future 2. Benign prostatic hyperplasia with weak urinary stream - terazosin (HYTRIN) 2 MG capsule; Take 1 capsule (2 mg) by mouth At Bedtime Dispense: 90 capsule; Refill: 1 3. Anticardiolipin antibody positive 4. Insomnia, unspecified type - zolpidem (AMBIEN CR) 12.5 MG CR tablet; TAKE ONE TABLET BY MOUTH NIGHTLY NEEDED FOR SLEEP Dispense: 30 tablet; Refill: 0 The information in this document, created by the medical office assistant for me, accurately reflects the services I personally performed and the decisions made by me. I have reviewed and approved this document for accuracy prior to leaving the patient care area. December 10, 2017 3:07 PM Froylan Louise MD [facility] documented in this encounter Plan of Treatment Upcoming Encounters Date Type Specialty Care Team Description 05/20/2022 Lab Lab documented as of this encounter Visit Diagnoses Diagnosis Acute deep vein thrombosis (DVT) of prox imal vein of both lower extremities (H) - Primary Benign prostatic hyperplasia with weak u rinary stream Anticardiolipin antibody positive Other and unspecified nonspecific immuno logical findings Insomnia, unspecified type documented in this encounter Care Teams Technical Publications Writer Relationship Specialty Start Date End Date Froylan Louise MD PCP - General Family Practice 02/22/14 Froylan Louise MD PCP - Assigned PCP 03/13/14 08/25/18 Froylan Louise MD Assigned PCP 03/13/14 2 documented as of this encounter
--- OUTSIDE RECORDS SUMMARY | 2022-05-15 22:33 | XMS_ITS | Encounter Summary ---
:1955 Author Organization [place] Address [address] [place] [address] Care Team Providers Name Role Phone Froylan Louise MD Primary Care Provider Unavailable Froylan Louise MD Unavailable Unavailable Froylan Louise MD Unavailable Unavailable Reason for Referral - Closed Specialty Diagnoses / Procedures Referred By Contact Refer red To Contact Diagnoses Postthrombotic syndrome Anticardiolipin antibody positive Chronic deep vein thrombosis (DVT) of lower extremity, unspecified laterality, unspecified vein (H) Luis A Charles MD [address] [facility] [address] [place] [address] Referral ID Status Reason Start Date Expiration Date Visits Requ ested Visits Authorized [id number] Closed 01/27/2018 01/27/2019 1 1 Reason for Visit Reason Comments Consult New consult for postthrombot ic syndrome and DVT, ref by Dr. Louise, records in [facility] Consultation - Closed Specialty Diagnoses / Procedures Referred By Contact Refer red To Contact Diagnoses Postthrombotic syndrome Anticardiolipin antibody positive Chronic deep vein thrombosis (DVT) of lower extremity, unspecified laterality, unspecified vein (H) Froylan Louise MD [facility] [address] [facility] [place] [address] [address] [facility], [address] [place] [address] Phone: Fax: Referral ID Status Reason Start Date Expiration Date Visits Requ ested Visits Authorized [id number] Closed 12/31/2017 12/31/2018 1 1 Encounter Details Date Type Department Care Team Description 01/05/2018 Office Visit [facility] Froylan Louise MD P ostthrombotic syndrome; Vascular Clinic Luis A Charles MD [address] [facility] [address] [place] [address] Anticardiolipin antibody positive; [place] Chronic deep vein thrombosis (DVT) of lower extremity, unspecified laterality, unspecified vein (H) [address] [place] [phone] Social History Tobacco Use Types Packs/Day Years [...] you attend denominational or Patient refused 2020 advent services? Do [...] Sign Reading Time Taken Comments Blood Pressure 147/93 01/05/2018 2:28 PM CDT Pulse 79 01/05/2018 2:28 PM CDT Temperature - - Respiratory Rate - - Oxygen Saturation 97% 01/05/2018 2:26 PM CDT Inhaled Oxygen Concentration - - Weight 100.7 kg (222 lb) 01/05/2018 2:26 PM CDT Height - - Body Mass Index 31.4 12/10/2017 2:26 PM CDT documented in this encounter Progress Notes Luis A Charles MD - 01/05/2018 2:20 PM CDT Vascular Medicine Consultation Chief Complaint Leg swelling Date of Admission: (Not on file) Virgil Christine is a 62 year old male who was admitted on (Not on file). I was asked to see the patientfor leg swelling. Code Status Full code Reason for Consult Reason for consult: I was asked by PCP leg swelling more pronounced on the right lower extremity swelling Primary Care Physician Froylan Louise History is obtained from the patient History of Present Illness Virgil Christine is a 62 year old male who presents with leg swelling right lower extremity more than the left patient was referred here for evaluation of PTS Patient has a long-standing history of right lower extremity DVT which was about 15 years ago secondary to colonic surgery patient did not wear compression stockings back then he continued to have leg swelling which is worse at the end of the day better in the beginning of the day no other symptoms ofchronic venous insufficiency like leg heaviness, restless leg symptoms, spontaneous bleeding or spontaneous ulceration yet the patient did have leg swelling as a mentioned before and prominent varicoseveins patient also had a history of IVC filter placement 10 years ago and recently when the patient was in [place] he was feeling so much tired he went to the ER then he underwent venous ultrasound w hich showed extensive right lower extremity DVT for which she had thrombolyzes and he was started onCoumadin Patient was diagnosed with antiphospholipid syndrome in the past and PTS yet he was not on Coumadin when he was diagnosed now currently he is on Coumadin with target INR of 2-3 Patient wears compression stockings now on and off Patient denies any history of chest pain, shortness of breath or palpitations A recent ultrasound showed evidence of nonocclusive DVT extending from the right superficial femoralall the way to the mid popliteal vein, and left lower extremity has no evidence of DVT Patient is up-to-date on his screening his PSA is normal, and his colonoscopy done a year ago was normal Patient denies any history of blood clots in the past other than the DVT episodes ??2 no family history of blood clots, no history of trauma, no history of inflammation or tumors, positive history for long travel from [place] to [place] recently Past Medical History I have reviewed this patient's medical history and updated it with pertinent information if needed. Past Medical History: Diagnosis Date ??? Arthritis [...] without mention of complication Hemorrhoids Past Surgical History I have reviewed this patient's surgical history and updated it with pertinent information if needed. Past Surgical History: Procedure Laterality Date ??? [...] Location: [facility] ??? RESECTION ABDOMINAL PERINEAL Prior to Admission Medications Cannot display prior to admission medications because the patient has not been admitted in this contact. Allergies No Known Allergies Social History I have reviewed this patient's social history and updated it with pertinent information if needed. Virgil Christine reports that he quit smoking about 11 years ago. His smoking use included Cigarettes. He has a 50.00 pack-year smoking history. He has never used smokeless tobacco. He reports that he drinksalcohol. He reports that he does not use illicit drugs. Family History I have reviewed this patient's family history and updated it with pertinent information if needed. Family History Problem Relation Age of Onset ??? Diabetes Mother ??? Colon Cancer No family hx of Review of Systems The 10 point Review of Systems is negative other than noted in the HPI or here. Physical Exam BP: (!) 147/93 Pulse: 79 SpO2: 97 % Vital Signs with Ranges Pulse: [66-79] 79 BP: (139-147)/(82-93) 147/93 SpO2: [97 %] 97 % 222 lbs 0 oz Constitutional: awake, alert, cooperative, no apparent distress, [...] bilaterally. Neuropsychiatric: Normal affect, memory, insight. Pulses: Positive pulses bilateral and equal +2 Edema +1 extending to both knees Lower extremity swelling right more than left Pitting edema +1 . No carotid bruits appreciated. Data Most Recent 3 CBC's: Recent Labs Lab Test 05/25/17 0810 06/08/16 1022 05/04/15 0939 WBC 7.5 5.3 5.9 HGB 14.6 14.2 14.3 MCV 93 92 91 PLT 213 202 213 Most Recent 3 BMP's: Recent Labs Lab Test 05/25/17 0810 06/08/16 1022 05/04/15 0939 NA 140 142 137 POTASSIUM 4.5 4.1 4.1 CHLORIDE 107 106 104 CO2 24 31 27 BUN 16 14 18 CR 0.91 0.84 0.79 ANIONGAP 9 5 6 DERREK 9.0 8.9 9.2 GLC 97 97 120* Most Recent 2 LFT's: Recent Labs Lab Test 05/25/17 0810 06/08/16 1022 AST 17 16 ALT 27 24 ALKPHOS 91 94 BILITOTAL 1.2 0.9 Most Recent 3 INR's: Recent Labs Lab Test 12/31/17 12/22/17 12/15/17 INR 4.0* 3.1* 2.3* Most Recent 6 glucoses: Recent Labs Lab Test 05/25/17 0810 06/08/16 1022 05/04/15 0939 05/27/14 1633 08/21/13 0555 07/07/13 1057 GLC 97 97 120* 100* 91 109* Most Recent Urinalysis: Recent Labs Lab Test 07/07/13 1058 COLOR Yellow APPEARANCE Clear URINEGLC Negative URINEBILI Negative URINEKETONE Negative SG >1.030 UBLD Negative URINEPH 5.5 PROTEIN Negative UROBILINOGEN 0.2 NITRITE Negative LEUKEST Negative Most Recent ABG:No lab results found. Most Recent ESR & CRP: Recent Labs Lab Test 05/27/12 1557 CRP 15.8* Most Recent Anemia Panel: Recent Labs Lab Test 05/25/17 0810 WBC 7.5 HGB 14.6 HCT 45.4 MCV 93 PLT 213 Assessment & Plan (I87.009) Postthrombotic syndrome Comment: Continue wearing compression stockings with leg elevation care instructions were given to the patient We will check for evidence of hypercoagulable states Plan: Antithrombin III, Beta 2 Glycoprotein Antibodies IGG IGM, Cardiolipin Kandice IgG and IgM, CBC with platelets differential, Comprehensive metabolic panel, CRP inflammation, D dimer quantitative, Erythrocyte sedimentation rate auto, F2 prothrombin 69209X Mut Anal, Homocysteine, Lupus Anticoagulant Panel, Factor 5 leiden mutation analysis, Lupus Anticoagulant Panel (R76.8) Anticardiolipin antibody positive Plan: Antithrombin III, Beta 2 Glycoprotein Antibodies IGG IGM, Cardiolipin Kandice IgG and IgM, CBC with platelets differential, Comprehensive metabolic panel, CRP inflammation, D dimer quantitative, Erythrocyte sedimentation rate auto, F2 prothrombin 26146A Mut Anal, Homocysteine, Lupus Anticoagulant Panel, Factor 5 leiden mutation analysis, Lupus Anticoagulant Panel (I82.509) Chronic deep vein thrombosis (DVT) of lower extremity, unspecified laterality, unspecifiedvein (H) Plan: Antithrombin III, Beta 2 Glycoprotein Antibodies IGG IGM, Cardiolipin Kandice IgG and IgM, CBC with platelets differential, Comprehensive metabolic panel, CRP inflammation, D dimer quantitative, Erythrocyte sedimentation rate auto, F2 prothrombin [id number] Mut Anal, Homocysteine, Lupus Anticoagulant Panel, Factor 5 leiden mutation analysis, Lupus Anticoagulant Panel Summary: We will see the patient 1 month from now for follow-up Luis A Charles MD documented in this encounter Nursing Notes Kathryn Yang - 01/05/2018 2:20 PM CDT Virgil Christine is a 62 year old male who presents for: Chief Complaint Patient presents with ??? Consult New consult for postthrombotic syndrome and DVT, ref by Dr. Louise, records in [facility] Vitals: Vitals: 01/05/18 1426 01/05/18 1428 BP: 139/82 (!) 147/93 BP Location: Right arm Left arm Patient Position: Chair Chair Cuff Size: Adult Large Adult Large Pulse: 66 79 SpO2: 97% Weight: 222 lb (100.7 kg) BMI: Estimated body mass index is 31.4 kg/(m^2) as calculated from the following: Height as of 12/10/17: 5' 10.5 (1.791 m). Weight as of this encounter: 222 lb (100.7 kg). Pain Score: Data Unavailable Kathryn Yang MA documented in this encounter Miscellaneous Notes Addendum Note - Liz Ott RN - 01/27/2018 12:58 PM CDT Addended by: LIZ OTT on: 01/27/2018 12:58 PM Modules accepted: Orders documented in this encounter Plan of Treatment Upcoming Encounters Date Type Specialty Care Team Description 05/20/2022 Lab Lab Pending Results Name Type Priority Associated Diagnoses Date/Ti me F2 prothrombin [id number] Lab Routine 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 Chronic deep vein thrombosis (DVT) of lower extremity, unspecified laterality, unspecified vein (H) Factor 5 leiden mutation Lab Routine Postthr ombotic syndrome 01/05/2018 4:15 PM analysis Anticardiolipin antibody CDT positive Chronic deep vein thrombosis (DVT) of lower extremity, unspecified laterality, unspecified vein (H) Scheduled Referrals Name Type Priority Associated Diagnoses Order S chedule Follow-Up with Referral Routine Postthrombotic s yndrome 1 Occurrences starting Vascular Medicine Anticardiolipin antibod y 01/27/2018 until positive 01/27/2019 Chronic deep vein thrombosis (DVT) of lower extremity, unspecified laterality, unspecified vein (H) documented as of this encounter Results (ABNORMAL) Lupus Anticoagulant Panel (01/05/2018 4:15 PM CDT) [facility] Method Time Signature Lupus Result Positive (A) NEG^Negat 01/08/2018 [facility] 1:05 PM CDT [facility] Comment: (Note) COMMENTS: INR is elevated. APTT ratio is elevated. APTT 1:2 Mix ratio is normal. Platelet Neutralization is negative. DRVVT Screen ratio is elevated. DRVVT Confirm [...] or chromogenic factor 10 (factor X) assay. Results interpreted by Quincy Jones MD , PhD, Pathology, PGY1 I personally reviewed the coagulation te st results and agree with the interpretation documented by the residen t /fellow and edited/confirmed by me. Rose Dorsey M.D. ??[phone] 01/08/2018 ? INR = ?2.87 ?Reference range: 0.86-1.14 ? Thrombin Time= ? 17.2 ?Ref erence range: 13.0-19.0 sec ? APTT: ? Ratio ? Patient ??= ?1.37 ? 1:2 Mix ??= ?0.92 ? Reference: ? Negative: Less than or equal to 1.16 ? Positive: Greater than or equal to 1.17 ? Platelet Neutralization (seconds): ? PTT Buffer-PTT Platelet Lysate = ?-2 ? Reference: ? Negative: Less than or equal to 0 ? Positive: Greater than or equal to 1 ? [facility]OM TEST: ? Screen Ratio = ? 1.91 ? Stacy l is less than 1.21 ? Confirm Normalized Ratio ??= ? 1.27 ? Normal is less than 1.21 ? Specimen Anatomical Collection Method Collection Time Receive d Time (Source) Location / / Volume Laterality Blood specimen 01/05/2018 4:15 PM 018 4:16 (specimen) CDT PM CDT Luis A Charles MD LAB - BLOOD ORDERABLES Performing Organization Address City/State/ZIP Code Phon e Number [facility] [address] [place], [place] [id number] [place] [address] Erythrocyte sedimentation rate auto (01/05/2018 4:15 PM CDT) P athologist Signature Sed Rate 16 0 - 20 mm/h 01/05/2018 [place] 5:22 PM CDT [facility] Specimen Anatomical Collection Method Collection Time Receive d Time (Source) Location / / Volume Laterality Blood specimen 01/05/2018 4:15 PM 018 4:16 (specimen) CDT PM CDT Luis A Charles MD LAB - BLOOD ORDERABLES Performing Organization Address City/State/ZIP Code Phon e Number [facility] [address] [place] [address] D dimer quantitative (01/05/2018 4:15 PM CDT) athologist Signature D Dimer 0.5 0.0 - 0.50 01/06/2018 [facility] ug/ml FEU 2:[address] [facility] Comment: This D-dimer assay is intended for use i n conjuntion with a clinical pretest probability assessment model to exclude pulmonary embolism (PE) and as an aid in the diagnosis of deep venous thrombos is (DVT) in outpatients suspected of PE or DVT. The cut-off value is 0.5?g/mL FEU. Specimen Anatomical Collection Method Collection Time Receive d Time (Source) Location / / Volume Laterality Blood specimen 01/05/2018 4:15 PM 018 4:16 (specimen) CDT PM CDT Luis A Charles MD LAB - BLOOD ORDERABLES Performing Organization Address City/State/ZIP Code Phon e Number [facility] [address] [place] [address] (ABNORMAL) CRP inflammation (01/05/2018 4:15 PM CDT) [facility] gist Method Time Signature CRP Inflammation 19.0 (H) 0.0 - 8.0 01/06/2018 [place] O F mg/L 4:48 PM CDT [facility] Specimen Anatomical Collection Method Collection Time Receive d Time (Source) Location / / Volume Laterality Blood specimen 01/05/2018 4:15 PM 018 4:16 (specimen) CDT PM CDT Luis A Charles MD LAB - BLOOD ORDERABLES Performing Organization Address City/State/ZIP Code Phon e Number [facility] [address] [place] [address] [facility] Comprehensive metabolic panel (01/05/2018 4:15 PM CDT) athologist Signature Sodium 142 133 - 144 01/06/2018 [place] mmol/L 4:08 PM CDT [facility] Potassium 4.3 3.4 - 5.3 01/06/2018 [place] mmol/L 4:08 PM T [facility] Chloride 107 94 - 109 01/06/2018 [place] mmol/L 4:08 PM T [facility] Carbon Dioxide 25 20 - 32 01/06/2018 [place] mmol/L 4:08 PM T [facility] Anion Gap 10 3 - 14 01/06/2018 [place] mmol/L 4:08 PM T [facility] Glucose 96 70 - 99 01/06/2018 [place] mg/dL 4:08 PM T [facility] Urea Nitrogen 16 7 - 30 01/06/2018 [place] mg/dL 4:08 PM T [facility] Creatinine 0.88 0.66 - 01/06/2018 [place] 1.25 mg/dL 4:08 PM T [facility] GFR Estimate 89 >60 01/06/2018 [place] mL/min/1.7 4:08 PM [address] [facility] m2 [facility] Comment: Non GFR Calc GFR Estimate If >90 >60 mL/min/1.7m2 01/06/2018 4:08 P M [facility] Black [facility] Comment: GFR Calc Calcium 9.3 8.5 - 10.1 01/06/2018 4:08 PM [facility] mg/dL [facility] Bilirubin Total 0.6 0.2 - 1.3 mg/dL 01/06/2018 4:08 PM [facility] Albumin 3.8 3.4 - 5.0 g/dL 01/06/2018 4:[address] [facility] Protein Total 8.0 6.8 - 8.8 g/dL 01/06/2018 4:08 PM [facility] Alkaline Phosphatase 86 40 - 150 U/L 01/06/2018 4:08 PM [facility] ALT 23 0 - 70 U/L 01/06/2018 4:08 PM [facility] T [facility] AST 10 0 - 45 U/L 01/06/2018 4:08 PM [facility] CDT [facility] Specimen Anatomical Collection Method Collection Time Receive d Time (Source) Location / / Volume Laterality Blood specimen 01/05/2018 4:15 PM 018 4:16 (specimen) CDT PM CDT Luis A Charles MD LAB - BLOOD ORDERABLES Performing Organization Address City/State/ZIP Code Phon e Number [facility] [address] [place] [address] CBC with platelets differential (01/05/2018 4:15 PM CDT) [facility] Method Time Signature WBC 8.8 4.0 - 01/05/2018 [facility] 11.0 5:11 PM CDT [facility] 10e9/L [place] RBC Count 4.98 4.4 - 5.9 01/05/2018 [facility] 10e12/L 5:11 PM CDT [facility] [place] Hemoglobin 14.8 13.3 - 01/05/2018 [facility] 17.7 g/dL 5:11 PM CDT [facility] [place] Hematocrit 45.2 40.0 - 01/05/2018 [facility] 53.0 % 5:11 PM CDT [facility] [place] MCV 91 78 - 100 01/05/2018 [facility] fl 5:11 PM CDT [facility] [place] MCH 29.7 26.5 - 01/05/2018 [facility] 33.0 pg 5:11 PM CDT [facility] [place] MCHC 32.7 31.5 - 01/05/2018 [facility] 36.5 g/dL 5:11 PM CDT [facility] [place] RDW 13.3 10.0 - 01/05/2018 [facility] 15.0 % 5:11 PM CDT [facility] [place] Platelet Count 242 150 - 450 01/05/2018 [facility] 10e9/L 5:11 PM CDT [facility] [place] Diff Method Automated 01/05/2018 [facility] Method 5:11 PM CDT [facility] [place] % Neutrophils 78.1 % 01/05/2018 [facility] 5:11 PM CDT [facility] [place] % Lymphocytes 14.2 % 01/05/2018 [facility] 5:11 PM CDT [facility] [place] % Monocytes 7.0 % 01/05/2018 [facility] 5:11 PM [facility] [place] % Eosinophils 0.5 % 01/05/2018 [facility] 5:11 PM CDT [facility] [place] % Basophils 0.2 % 01/05/2018 [place] 5:11 PM CDT [facility] [place] Absolute 6.9 1.6 - 8.3 01/05/2018 [place] Neutrophil 10e9/L 5:11 PM CDT [facility] [place] Absolute 1.2 0.8 - 5.3 01/05/2018 [place] Lymphocytes 10e9/L 5:11 PM CDT [facility] [place] Absolute 0.6 0.0 - 1.3 01/05/2018 [place] Monocytes 10e9/L 5:11 PM CDT [facility] [place] Absolute 0.0 0.0 - 0.7 01/05/2018 [place] Eosinophils 10e9/L 5:11 PM CDT [facility] [place] Absolute 0.0 0.0 - 0.2 01/05/2018 [place] Basophils 10e9/L 5:11 PM CDT [facility] [place] Specimen Anatomical Collection Method Collection Time Receive d Time (Source) Location / / Volume Laterality Blood specimen 01/05/2018 4:15 PM 018 4:16 (specimen) CDT PM CDT Luis A Charles MD LAB - BLOOD ORDERABLES Performing Organization Address City/State/ZIP Code Phon e Number [facility] [address] [place] [address] Cardiolipin Kandice IgG and IgM (01/05/2018 4:15 PM CDT) P athologist Signature Cardiolipin <1.6 0.0 - 19.9 01/07/2018 [facility] IgG GPL-U/mL 9:22 AM CDT [facility] Comment: Negative Cardiolipin Antibody 2.9 0.0 - 19.9 01/07/2018 9:22 AM [facility] IgM MPL-U/mL T [facility] Comment: Negative Specimen Anatomical Collection Method Collection Time Receive d Time (Source) Location / / Volume Laterality Blood specimen 01/05/2018 4:15 PM 018 4:16 (specimen) CDT PM CDT Luis A Charles MD LAB - BLOOD ORDERABLES Performing Organization Address City/State/ZIP Code Phon e Number [facility] [phone] [place] [address] Beta 2 Glycoprotein Antibodies IGG IGM (01/05/2018 4:15 PM CDT) Analysis Performed At Patho logis Time Signature Beta 2 <0.6 <7 U/mL 01/07/2018 [facility] Glycoprotein 1 1:34 PM CDT [facility] Antibody IgG [facility] Comment: Negative Beta 2 Glycoprotein 1 1.6 <7 U/mL 01/07/2018 1:31 PM CDT [facility] Antibody IgM [facility] Comment: Negative Specimen Anatomical Collection Method Collection Time Receive d Time (Source) Location / / Volume Laterality Blood specimen 01/05/2018 4:15 PM 018 4:16 (specimen) CDT PM CDT Luis A Charles MD LAB - BLOOD ORDERABLES Performing Organization Address City/State/ZIP Code Phon e Number [address] Antithrombin III (01/05/2018 4:15 PM CDT) Analysis Performed At [facility] Time Signature Antithrombin III 107 85 - 135 % 01/08/2018 [facility] Chromogenic 7:13 AM CDT [facility] Specimen Anatomical Collection Method Collection Time Receive d Time (Source) Location / / Volume Laterality Blood specimen 01/05/2018 4:15 PM 018 4:16 (specimen) CDT PM CDT Luis A Charles MD LAB - BLOOD ORDERABLES Performing Organization Address City/[facility]/ZIP Code Phon e Number [address] documented in this encounter Visit Diagnoses Diagnosis 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
--- OUTSIDE RECORDS SUMMARY | 2022-05-15 22:33 | XMS_ITS | Encounter Summary ---
:1955 Author Organization [facility] Address [address] [place] [address] Care Team Providers Name Role Phone Froylan Louise MD Primary Care Provider Unavailable Froylan Louise MD Unavailable Unavailable Froylan Louise MD Unavailable Unavailable Encounter Details Date Type Department Care Team Description 12/31/2017 Anticoagulation Therapy [facility] Long-term (current) Visit [facility] use of anticoagulants [address] [place] [address] Social History Tobacco Use Types [...] containing 4 or more times a w [place] 05/25/2021 alcohol? How many drinks containing alcohol [...] you attend pentecostal or Patient refused 2020 nondenominational services? Do [...] Progress Notes Page, Esthela Conrad RN - 12/31/2017 4:01 PM CDT ANTICOAGULATION FOLLOW-UP CLINIC VISIT Patient Name: Virgil Christine Date: 12/31/2017 Contact Type: Face to Face SUBJECTIVE: Patient Findings Positives No Problem Findings OBJECTIVE INR Protime Date Value Ref Range Status 12/31/2017 4.0 (A) 0.86 - 1.14 Final ASSESSMENT / PLAN Pt is having some minor bruising but denies any bleeding. 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 He is seeing ortho tomorrow and will likely receive steroid injection into to right shoulder. He was given referral information for vascular and did sign FRANKLIN to have records sent from the vascular surgeon he saw in [place]. FRANKLIN was faxed and copy to abstraction. Anticoagulation Summary as of 12/31/2017 INR goal 2.0-3.0 Today's INR 4.0! Warfarin maintenance plan 5 mg (5 mg x 1) on Tue, Herlinda; 7.5 mg (7.5 mg x 1) all other days Full warfarin instructions 12/31: Hold; 01/02: 5 mg; 01/03: 5 mg; Otherwise 5 mg on Tue, Herlinda; 7.5 mg all other days Weekly warfarin total 47.5 mg Plan last modified Wendi Lindsay RN (12/15/2017) Next INR check Target end date Indications Long-term (current) use [...] Comme nts INR POINT OF CARE Routine 12/31/2017 Long-term (current) use of Results for this anticoagulants procedure are in the results section . documented in this encounter Results (ABNORMAL) INR point of care (12/31/2017) P athologist Signature INR Point of 4.0 (A) 0.86 - [facility] 1.14 [facility] Specimen (Source) Anatomical Location Collection Method / Collectio n Time Received Time / Laterality Volume 12/31/2017 Froylan Louise MD LAB - BLOOD ORDERABLES Performing Organization Address City/State/ZIP Code Phon e Number [facility] [id number] [place] [address] documented in this encounter Visit Diagnoses Diagnosis Long-term (current) use of anticoagulant s Encounter for long-term (current) use of anticoagulants documented in this encounter Care Teams Dental Hygienist Relationship Specialty Start Date End Date Froylan Louise MD PCP - General Family Practice 02/22/14 Froylan Louise MD PCP - Assigned PCP 03/13/14 08/25/18 Froylan Louise MD Assigned PCP 03/13/14 2 documented as of this encounter
--- OUTSIDE RECORDS SUMMARY | 2022-05-15 22:33 | XMS_ITS | Encounter Summary ---
:1955 Author Organization [facility] Address [address] [place] [address] Care Team Providers Name Role Phone Froylan Louise MD Primary Care Provider Unavailable Froylan Louise MD Unavailable Unavailable Froylan Louise MD Unavailable Unavailable Reason for Visit Reason Onset Date Comments Refill Request 07/13/2017 REBECCA HFA 17 MCG/ ACT Inhaler Encounter Details Date Type Department Care Team Description 07/13/2017 Refill [facility] Froylan Louise Ra, Refill Request (REBECCA Shaver MD HFA 17 MCG/ACT Inhaler) [address] [place] [address] Social History Tobacco Use [...] 4 or more times a w [place] 05/25/2021 alcohol? How many drinks containing [...] you attend pentecostal or Patient refused 2020 sabianist services? Do [...] Telephone Encounter - Wendi Lindsay RN - 07/14/2017 9:43 AM CST ACT Total Scores 05/04/2015 01/24/2016 06/13/2017 ACT TOTAL SCORE - - - ASTHMA ER VISITS - - - ASTHMA HOSPITALIZATIONS - - - ACT TOTAL SCORE (Goal Greater than or Equal to 20) 24 24 23 In the past 12 months, how many times did you visit the emergency room for your asthma without beingadmitted to the hospital? 0 0 0 In the past 12 months, how many times were you hospitalized overnight because of your asthma? 0 0 0 Prescription approved per [facility] Refill Protocol. Wendi Lindsay RN, BSN CONTROL WORKER Telephone Encounter - Thais Ayala - 07/13/2017 8:20 AM CST Requested Prescriptions Pending Prescriptions Disp Refills ??? ATROVENT HFA 17 MCG/ACT Inhaler [Pharmacy Med Name: ATROVENT HFA INHALER] Last Written Prescription Date: 04/02/2017 Last Fill Quantity: 12.9 Inhaler, # refills: 2 Last Office Visit with [facility], [facility] or [facility] prescribing provider: 06/13/2017 12.9 Inhaler 2 Sig: INHALE 2 PUFFS INTO THE LUNGS EVERY 6 HOURS Asthma Maintenance Inhalers - Anticholinergics Passed 07/13/2017 12:58 AM Passed - Patient is age 12 years or older Passed - Asthma control test score is 20 or greater in last 6 months Please review ACT score. Passed - Recent (6 mo) or future visit with authorizing provider's specialty Patient had office visit in the last 6 months or has a visit in the next 30 days with authorizing provider. See Patient Info tab in inbasket, or Choose Columns in Meds & Orders section of the refill encounter. CONTROL WORKER documented in this encounter Plan of Treatment Upcoming Encounters Date Type Specialty Care Team Description 05/20/2022 Lab Lab documented as of this encounter Visit Diagnoses Diagnosis Mild persistent asthma without complicat ion Unspecified asthma documented in this encounter Care Teams Mixer Blender Relationship Specialty Start Date End Date Froylan Louise MD PCP - General Family Practice 02/22/14 Froylan Louise MD PCP - Assigned PCP 03/13/14 08/25/18 Froylan Louise MD Assigned PCP 03/13/14 2 documented as of this encounter
--- OUTSIDE RECORDS SUMMARY | 2022-05-15 22:33 | XMS_ITS | Encounter Summary ---
:1955 Author Organization [facility] Address [address] [place] [address] Care Team Providers Name Role Phone Froylan Louise MD Primary Care Provider Unavailable Froylan Louise MD Unavailable Unavailable Froylan Louise MD Unavailable Unavailable Reason for Visit Reason Onset Date Comments Orders 12/17/2017 Imaging Encounter Details Date Type Department Care Team Description 12/17/2017 Telephone [facility] Froylan Louise Ra, MD Orders (Imaging) [address] [address] Social History Tobacco [...] or more times a w [place] 05/25/2021 alcohol? How many drinks containing alcohol [...] you attend methodist or Patient refused 2020 congregational services? Do [...] Telephone Encounter - Yeimi Daniel RN - 12/17/2017 3:46 PM CDT Received a call from patient stating that he needs to have his orders for bilateral lower extremity ultrasound faxed to [facility] in [place] as he is going there now. Order faxed to [phone] per patient request. Yeimi Daniel RN documented in this encounter Plan of Treatment Upcoming Encounters Date Type Specialty Care Team Description 05/20/2022 Lab Lab documented as of this encounter Visit Diagnoses Not on filedocumented in this encounter Care Teams Flexographic Press Plate Setter Relationship Specialty Start Date End Date Froylan Louise MD PCP - General Family Practice 02/22/14 Froylan Louise MD PCP - Assigned PCP 03/13/14 08/25/18 Froylan Louise MD Assigned PCP 03/13/14 2 documented as of this encounter
--- OUTSIDE RECORDS SUMMARY | 2022-05-15 22:33 | XMS_ITS | Encounter Summary ---
:1955 Author Organization [facility] Address [address] [place] [address] Care Team Providers Name Role Phone Froylan Louise MD Primary Care Provider Unavailable Froylan Louise MD Unavailable Unavailable Froylan Louise MD Unavailable Unavailable Encounter Details Date Type Department Care Team Description 01/05/[address] [facility] DVT (deep venous thrombosis) (H) (Primary Dx); Visit [facility] Long-term (current) use of a nticoagulants [address] [place] [address] Social History Tobacco Use Types [...] you attend hindu or Patient refused 2020 amish services? Do [...] Progress Notes Page, Esthela Conrad RN - 01/05/2018 4:06 PM CDT ANTICOAGULATION FOLLOW-UP CLINIC VISIT Patient Name: Virgil Christine Date: 01/05/2018 Contact Type: Face to Face SUBJECTIVE: Patient Findings Positives No Problem Findings OBJECTIVE INR Protime Date Value Ref Range Status 12/31/2017 4.0 (A) 0.86 - 1.14 Final ASSESSMENT / PLAN No question data found. Anticoagulation Summary as of 01/05/2018 INR goal 2.0-3.0 Today's INR Warfarin maintenance plan 5 mg (5 mg x 1) on Tue, Herlinda; 7.5 mg (7.5 mg x 1) all other days Full warfarin instructions 01/05: Hold; 01/06: Hold; 01/07: 5 mg; Otherwise 5 mg on Tue, Herlinda; 7.5 mg all other days Weekly warfarin total 47.5 mg Plan last modified Wendi Lindsay RN (12/15/2017) Next INR check 01/08/2018 Target end date Indications Long-term (current) use [...] Comme nts INR POINT OF CARE Routine 01/05/2018 Long-term (current) use Results for this of anticoagulant s procedure are in the DVT (deep venous results sec tion. thrombosis) (H) documented in this encounter Results (ABNORMAL) INR point of care (01/05/2018) P athologist Signature INR Point of 4.0 (A) 0.86 - [facility] 1.14 [facility] Specimen (Source) Anatomical Location Collection Method / Collectio n Time Received Time / Laterality Volume 01/05/2018 Froylan Ray Dani MD LAB - BLOOD ORDERABLES Performing Organization Address City/State/ZIP Code Phon e Number [facility] [id number] [place] [address] documented in this encounter Visit Diagnoses Diagnosis DVT (deep venous thrombosis) (H) - Prima ry Acute venous embolism and thrombosis of unspecified deep vessels of lower extremity Long-term (current) use of anticoagulant s Encounter for long-term (current) use of anticoagulants documented in this encounter Care Teams Assistant Production Manager Relationship Specialty Start Date End Date Froylan Louise MD PCP - General Family Practice 02/22/14 Froylan Louise MD PCP - Assigned PCP 03/13/14 08/25/18 Froylan Louise MD Assigned PCP 03/13/14 2 documented as of this encounter
--- OUTSIDE RECORDS SUMMARY | 2022-05-15 22:33 | XMS_ITS | Encounter Summary ---
:1955 Author Organization [facility] Address [address] [place] [address] Care Team Providers Name Role Phone Froylan Louise MD Primary Care Provider Unavailable Froylan Louise MD Unavailable Unavailable Froylan Louise MD Unavailable Unavailable Encounter Details Date Type Department Care Team Description 01/08/2018 Orders Only [facility] Wily g-term (current) use of anticoagulants; [facility] DVT (deep venous thrombosis) (H) [address] [place] [address] Social History Tobacco Use [...] containing 4 or more times a w [place] 05/25/2021 alcohol? How many drinks containing alcohol [...] you attend shinto or Patient refused 2020 rastafari services? Do [...] this encounter Miscellaneous Notes Addendum Note - Keke Bose - 01/08/2018 11:26 AM CDT Addended by: KEKE BOSE on: 01/08/2018 11:26 AM Modules accepted: Orders documented in this encounter Plan of Treatment Upcoming Encounters Date Type Specialty Care Team Description 05/20/2022 Lab Lab documented as of this encounter Procedures Procedure Name Priority Date/Time Associated Diagnosis Comme nts INR Routine 01/08/2018 10:00 AM Long-term (current) R esults for this CDT use of anticoagu lants procedure are in the DVT (deep venous results sec tion. thrombosis) (H) documented in this encounter Results (ABNORMAL) INR (01/08/2018 10:00 AM CDT) athologist Signature INR 1.50 (H) 0.86 - 1.14 01/08/2018 [place] 11:30 AM CDT [facility] Comment: This test is intended for monitoring Cou madin therapy. ??Results are not accurate in patients with prolonged INR due to factor deficiency. Specimen Anatomical Collection Method Collection Time Receive d Time (Source) Location / / Volume Laterality Blood specimen 01/08/2018 10:00 8 (specimen) AM CDT 10:01 AM CDT Froylan Louise MD LAB - BLOOD ORDERABLES Performing Organization Address City/State/ZIP Code Phon e Number [facility] [id number] [place] [address] documented in this encounter Visit Diagnoses Diagnosis Long-term (current) use of anticoagulant s Encounter for long-term (current) use of anticoagulants DVT (deep venous thrombosis) (H) Acute venous embolism and thrombosis of unspecified deep vessels of lower extremity documented in this encounter Care Teams Inclusion Specialist Relationship Specialty Start Date End Date Froylan Louise MD PCP - General Family Practice 02/22/14 Froylan Louise MD PCP - Assigned PCP 03/13/14 08/25/18 Froylan Louise MD Assigned PCP 03/13/14 2 documented as of this encounter
--- OUTSIDE RECORDS SUMMARY | 2022-05-15 22:33 | XMS_ITS | Encounter Summary ---
:1955 Author Organization [facility] Address [address] [place] [address] Care Team Providers Name Role Phone Froylan Louise MD Primary Care Provider Unavailable Froylan Louise MD Unavailable Unavailable Froylan Louise MD Unavailable Unavailable Encounter Details Date Type Department Care Team Description 01/08/2018 Anticoagulation Therapy [facility] Audrey Louise Long-term (current) Visit Clinic Chhaya Dubose MD use of anticoagulants [address] [place] [address] Social History Tobacco Use Types [...] containing 4 or more times a w [place] 05/25/2021 alcohol? How many drinks containing alcohol [...] you attend druze or Patient refused 2020 hindu services? Do [...] as of this encounter Progress Notes Wendi Busch RN - 01/08/2018 11:47 AM CDT ANTICOAGULATION FOLLOW-UP CLINIC VISIT Patient Name: Virgil Christine Date: 01/08/2018 Contact Type: Telephone SUBJECTIVE: Patient Findings Positives Intentional hold of therapy Comments Pt had a hold and now dropped. Will dose to have him in between his previous dosing and ifelevated again will have a factor 10 drawn Wendi Busch RN, BSN OBJECTIVE INR Date Value Ref Range Status 01/08/2018 1.50 (H) 0.86 - 1.14 Final Comment: This test is intended for monitoring Coumadin therapy. Results are not accurate in patients with prolonged INR due to factor deficiency. ASSESSMENT / PLAN INR assessment SUB Recheck INR In: 1 WEEK INR Location Outside lab Anticoagulation Summary as of 01/08/2018 INR goal 2.0-3.0 Today's INR 1.50! Warfarin maintenance plan 5 mg (5 mg x 1) on Tue, Herlinda; 7.5 mg (7.5 mg x 1) all other days Full warfarin instructions 01/10: 5 mg; 01/11: 5 mg; Otherwise 5 mg on Tu, Herlinda; 7.5 mg all other days Weekly warfarin total 47.5 mg Plan last modified Wendi Busch RN (12/15/2017) Next INR check 01/15/2018 Target end date Indications Long-term (current) use [...] based on physician directed care plan. Wendi Busch RN documented in this encounter Miscellaneous Notes Addendum Note - Wendi Busch RN - 01/08/2018 11:58 AM CDT Addended by: WENDI BUSCH on: 01/08/2018 11:58 AM Modules accepted: Orders documented in this encounter Plan of Treatment Upcoming Encounters Date Type Specialty Care Team Description 05/20/2022 Lab Lab documented as of this encounter Results (ABNORMAL) INR (01/15/2018 4:05 PM CDT) P athologist Signature INR 2.20 (H) 0.86 - 1.14 01/15/2018 [place] 4:18 PM CDT [facility] Comment: This test is intended for monitoring Cou madin therapy. ??Results are not accurate in patients with prolonged INR due to factor deficiency. Specimen Anatomical Collection Method Collection Time Receive d Time (Source) Location / / Volume Laterality Blood specimen 01/15/2018 4:05 PM 018 4:06 (specimen) CDT PM CDT Froylan Louise MD LAB - BLOOD ORDERABLES Performing Organization Address City/State/ZIP Code Phon e Number [facility] [id number] [place] [address] documented in this encounter Visit Diagnoses Diagnosis Long-term (current) use of anticoagulant s Encounter for long-term (current) use of anticoagulants documented in this encounter Care Teams Manager Resource Relationship Specialty Start Date End Date Froylan Louise MD PCP - General Family Practice 02/22/14 Froylan Louise MD PCP - Assigned PCP 03/13/14 08/25/18 Froylan Louise MD Assigned PCP 03/13/14 2 documented as of this encounter
--- OUTSIDE RECORDS SUMMARY | 2022-05-15 22:33 | XMS_ITS | Encounter Summary ---
:1955 Author Organization [facility] Address [address] [place] [address] Care Team Providers Name Role Phone Froylan Louise MD Primary Care Provider Unavailable Froylan Louise MD Unavailable Unavailable Froylan Louise MD Unavailable Unavailable Encounter Details Date Type Department Care Team Description 01/06/2018 Orders Only [facility] Pos tthrombotic syndrome; [facility] Anticardiolipin antibody pos itive; [address] [facility] Chronic deep vein thrombosis (DVT) of lower extremity, unspecified laterality, unspecified vein (H) [place] [address] Social History Tobacco Use Types Packs/Day Years Used Date Smoking Tobacco: Former Cigarettes 2 25 Quit : 08/04/2006 Smokeless Tobacco: Never Comments: 2004 Alcohol Use Standard Drinks/Week Comments Yes 0 (1 standard drink = 0.6 oz pure alcoho l) 4 BEERS A WEEK Alcohol Habits Answer Date Recorded How often do you have a drink containing 4 or more times a w [place] 05/25/2021 alcohol? How many drinks containing alcohol [...] you attend yazidism or Patient refused 2020 yazdanism services? Do [...] Name Priority Date/Time Associated Diagnosis Comme nts HOMOCYSTEINE Routine 01/06/2018 3:54 PM Postthromboti c syndrome Results for this CDT Anticardiolipin antibody pro cedure are in positive the results Chronic deep vein section. thrombosis (DVT) of lower extremity, unspecified laterality, unspecified vein (H) documented in this encounter Results Homocysteine (01/06/2018 3:54 PM CDT) Analysis Performed At Patho logist Time Signature Homocysteine 9.7 4.0 - 12.0 01/14/2018 [facility] umol/L umol/L 10:16 AM CDT [facility] Comment: A normal plasma homocysteine level likel y rules out genetic defects in homocysteine metabolism. 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
--- OUTSIDE RECORDS SUMMARY | 2022-05-15 22:33 | XMS_ITS | Encounter Summary ---
:1955 Author Organization [facility] Address [address] [place] [address] Care Team Providers Name Role Phone Froylan Louise MD Primary Care Provider Unavailable Froylan Louise MD Unavailable Unavailable Froylan Louise MD Unavailable Unavailable Reason for Visit Reason Onset Date Comments Panel Management 07/15/2017 Encounter Details Date Type Department Care Team Description 07/15/[address] [facility] Froylan Louise Ra, MD Panel Management [address] [address] Social History Tobacco Use [...] you attend mormonism or Patient refused 2020 mosque services? Do [...] this encounter Miscellaneous Notes Telephone Encounter - Linda Pandya RN - 07/23/2017 2:28 PM CST Phone call from [facility] asking about a dressing for a wound on his buttock. Pt reports Dr. Edwards recommended he call us. Pt states he has a moderate amount of drainage on buttock, needing to change a gauze pad 4-5 x/ day.He said he did not think there was a channel, his j pouch was negative for a fistula (pouch o gram done about a week ago). Reports. Dr edwards recommend he go to OR to have wound better explored. P: I gave pt phone number for [facility] but said it sounds like pt really should follow up with [facility] and just get wound fully explored. OGRAPHER APPRENTICE Telephone Encounter - Hilda Gibson CMA - 07/15/2017 12:49 PM CST Panel Management Review Patient has the following on his problem list: None Composite cancer screening Chart review shows that this patient is due/due soon for the following None Summary: Patient is due/failing the following: None- up to date Action needed: None- Type of outreach: None Questions for provider review: None Hilda Gibson CMA Chart routed to none . OGRAPHER APPRENTICE documented in this encounter Plan of Treatment Upcoming Encounters Date Type Specialty Care Team Description 05/20/2022 Lab Lab documented as of this encounter Visit Diagnoses Not on filedocumented in this encounter Care Teams Cyber Security Administrator Relationship Specialty Start Date End Date Froylan Louise MD PCP - General Family Practice 02/22/14 Froylan Louise MD PCP - Assigned PCP 03/13/14 08/25/18 Froylan Louise MD Assigned PCP 03/13/14 2 documented as of this encounter
--- OUTSIDE RECORDS SUMMARY | 2022-05-15 22:33 | XMS_ITS | Encounter Summary ---
:1955 Author Organization [facility] Address [address] [place] [address] Care Team Providers Name Role Phone Froylan Louise MD Primary Care Provider Unavailable Froylan Louise MD Unavailable Unavailable Froylan Louise MD Unavailable Unavailable Encounter Details Date Type Department Care Team Description 01/15/2018 Orders Only [facility] Wily g-term (current) use of [facility] anticoagulants [address] [place] [address] Social History Tobacco Use [...] you attend advent or Patient refused 2020 zoroastrian services? Do [...] encounter Progress Notes Wendi Lindsay RN - 01/16/2018 9:05 AM CDT See acc encounter Wendi Lindsay RN, BSN documented in this encounter Plan of Treatment Upcoming Encounters Date Type Specialty Care Team Description 05/20/2022 Lab Lab documented as of this encounter Procedures Procedure Name Priority Date/Time Associated Diagnosis Comme nts INR Routine 01/15/2018 4:05 PM Long-term (current) us e Results for this CDT of anticoagulants procedure are in the results section. documented in this encounter Results (ABNORMAL) INR (01/15/2018 4:05 PM CDT) P athologist Signature INR 2.20 (H) 0.86 - 1.14 01/15/2018 [place] 4:18 PM CDT [facility] Comment: This test is intended for [...] Organization Address City/State/ZIP Code Phon e Number [facility] [address] [place] [address] documented in this encounter Visit Diagnoses Diagnosis Long-term (current) use of anticoagulant s Encounter for long-term (current) use of anticoagulants documented in this encounter Care Teams Management Information Systems Director Relationship Specialty Start Date End Date Froylan Louise MD PCP - General Family Practice 02/22/14 Froylan Louise MD PCP - Assigned PCP 03/13/14 08/25/18 Froylan Louise MD Assigned PCP 03/13/14 2 documented as of this encounter
--- OUTSIDE RECORDS SUMMARY | 2022-05-15 22:33 | XMS_ITS | Encounter Summary ---
:1955 Author Organization [place] Address [address] [place] [address] Care Team Providers Name Role Phone Froylan Louise MD Primary Care Provider Unavailable Froylan Louise MD Unavailable Unavailable Froylan Louise MD Unavailable Unavailable Reason for Visit Reason Onset Date Comments Orders 12/26/2017 compression socks Encounter Details Date Type Department Care Team Description 12/26/2017 Telephone [facility] Froylan Louise Orde rs (compression Clinic [facility] socks ) [address] [place] [address] Social History Tobacco Use Types [...] 4 or more times a w [place] 05/25/2021 alcohol? How many drinks containing alcohol [...] attend roman catholic or Patient refused 2020 advent services? Do [...] this encounter Miscellaneous Notes Addendum Note - Page, Esthela Conrad RN - 12/26/2017 2:44 PM CDT Addended by: ESTHELA COREA on: 12/26/2017 02:44 PM Modules accepted: Orders Telephone Encounter - Esthela Corea RN - 12/26/2017 2:39 PM CDT Pt calling states the compression stockings are so tight there is no way I can wear them all day atwork [facility] and they have something called a sport sock with 20-30 mm compression that is more comfortable for pt. He would like RX sent for this. 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
--- OUTSIDE RECORDS SUMMARY | 2022-05-15 22:33 | XMS_ITS | Encounter Summary ---
:1955 Author Organization [place] Address [address] [place] [address] Care Team Providers Name Role Phone Froylan Louise MD Primary Care Provider Unavailable Froylan Louise MD Unavailable Unavailable Froylan Louise MD Unavailable Unavailable Reason for Visit Reason Onset Date Comments Refill Request 09/22/2017 loperamide (IMODIUM) 2 MG capsule Encounter Details Date Type Department Care Team Description 09/22/2017 [facility] Froylan Louise Ra, Refill Request Chhaya VILLASEÑOR (loperamide (IMODIUM) [address] MG capsule) [place] [address] Social History Tobacco Use [...] you attend sikh or Patient refused 2020 catholic services? Do [...] Telephone Encounter - Wendi Lindsay RN - 09/22/2017 10:05 AM CDT Prescription approved per [facility] [place] Protocol. Wendi Lindsay RN, BSN Telephone Encounter - Carlos Alberto Black - 09/22/2017 7:37 AM CDT loperamide (IMODIUM) 2 MG capsule Last Written Prescription Date: 06/10/2017 Last Fill Quantity: 480 capsule, # refills: 0 Last Office Visit: 06/13/2017 Future Office visit: Routing refill request to provider for review/approval because: Drug not on the [facility] refill protocol or controlled substance Carlos Alberto Black XRT documented in this encounter Plan of Treatment Upcoming Encounters Date Type Specialty Care Team Description 05/20/2022 Lab Lab documented as of this encounter Visit Diagnoses Diagnosis H/O ulcerative colitis Personal history of other diseases of di gestive system documented in this encounter Care Teams Gas Check Pad Maker Relationship Specialty Start Date End Date Froylan Louise MD PCP - General Family Practice 02/22/14 Froylan Louise MD PCP - Assigned PCP 03/13/14 08/25/18 Froylan Louise MD Assigned PCP 03/13/14 2 documented as of this encounter
--- OUTSIDE RECORDS SUMMARY | 2022-05-15 22:33 | XMS_ITS | Encounter Summary ---
:1955 Author Organization [place] Address [address] [place] [address] Care Team Providers Name Role Phone Froylan Louise MD Primary Care Provider Unavailable Froylan Louise MD Unavailable Unavailable Froylan Louise MD Unavailable Unavailable Reason for Visit Reason Onset Date Comments Refill Request 07/30/2017 furosemide (LASIX) 2 0 MG tablet Encounter Details Date Type Department Care Team Description [facility] Ra, Refill Request Chhaya VILLASEÑOR (furosemide (LASIX) [address] MG tablet) [place] [address] Social History Tobacco Use [...] you attend orthodoxy or Patient refused 2020 jainism services? 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
--- OUTSIDE RECORDS SUMMARY | 2022-05-15 22:33 | XMS_ITS | Encounter Summary ---
:1955 Author Organization [place] Address [address] [place] [address] Care Team Providers Name Role Phone Froylan Louise MD Primary Care Provider Unavailable Froylan Louise MD Unavailable Unavailable Froylan Louise MD Unavailable Unavailable Reason for Referral Specialty Diagnoses / Procedures Referred By Contact Refer red To Contact Froylan Louise M [address] [address] [place] [address] Referral ID Status Reason Start Date Expiration Date Visits Requ ested Visits Authorized Scheduling Instructions ANTICOAGULATION CLINIC COLLABORATIVE [place] ACTICE AGREEMENT The following represents a collaborative practice agreement among the physicians of the Clinic and staff of the Anticoagulat ion Clinic Service ([facility]) Physicians shall: 1. Refer patients requiring anticoagulat ion to a specialty service staffed by personnel of Pharmacy Services and super vised by Clinic physicians. 2. Respond to questions and referrals fr pharmacy staff regarding delinquent or difficult patients. 3. Inform the [facility] staff when a new patie nt [...] Initiate vitamin K therapy when marta cated. Encounter Details Date Type Department Care Team Description 12/10/2017 Anticoagulation Therapy [facility] Audrey Louise Long-term (current) use of anticoagulants; Visit Clinic Chhaya Dubose MD Acute deep vein thrombosis ( DVT) of proximal vein of both lower extremities (H) [address] [place] [address] Social History Tobacco Use Types [...] containing 4 or more times a w [place] 05/25/2021 alcohol? How many drinks containing alcohol [...] you attend zoroastrian or Patient refused 2020 roman catholic services? [...] Progress Notes Page, Esthela Conrad RN - 12/10/2017 3:18 PM CDT ANTICOAGULATION FOLLOW-UP CLINIC VISIT Patient Name: Virgil Christine Date: 12/10/2017 Contact Type: Face to Face SUBJECTIVE: Patient Findings Positives No Problem Findings OBJECTIVE INR Protime Date Value Ref Range Status 12/10/2017 1.3 (A) 0.86 - 1.14 Final ASSESSMENT / PLAN No question data found. Anticoagulation Summary as of 12/10/2017 INR goal 2.0-3.0 Today's INR 1.3! Warfarin maintenance plan No maintenance plan Full warfarin instructions 12/10: 10 mg; 12/11: 10 mg; 12/12: 10 mg; 12/13: 10 mg; 12/14: 5 mg Plan last modified Esthela Corea, RN (12/10/2017) Next INR check 12/15/2017 Target end date Indications Long-term (current) use [...] Priority Associated Diagnoses Order S chedule INR Clinic Referral - Referral Routine Acute deep vein thr ombosis Ordered: 12/10/2017 Add INR goal, Length (DVT) of proximal ve in of of therapy, Indication both lowe r extremities (H) Long-term (current) use of anticoagulants documented as of this encounter Procedures Procedure Name Priority Date/Time Associated Diagnosis Comme nts INR POINT OF CARE Routine 12/10/2017 Long-term (current) use of Results for this anticoagulants procedure are in the results section . documented in this encounter Results (ABNORMAL) INR point of care (12/10/2017) athologist Signature INR Point of 1.3 (A) 0.86 - [facility] 1.14 [facility] Specimen (Source) Anatomical Location Collection Method / Collectio n Time Received Time / Laterality Volume 12/10/2017 Froylan Louise MD LAB - BLOOD ORDERABLES Performing Organization Address City/State/ZIP Code Phon e Number [facility] [address] [place] [address] documented in this encounter Visit Diagnoses Diagnosis Long-term (current) use of anticoagulant s Encounter for long-term (current) use of anticoagulants Acute deep vein thrombosis (DVT) of prox imal vein of both lower extremities (H) documented in this encounter Care Teams Planning Consultant Relationship Specialty Start Date End Date Froylan Louise MD PCP - General Family Practice 02/22/14 Froylan Louise MD PCP - Assigned PCP 03/13/14 08/25/18 Froylan Louise MD Assigned PCP 03/13/14 2 documented as of this encounter
--- OUTSIDE RECORDS SUMMARY | 2022-05-15 22:33 | XMS_ITS | Encounter Summary ---
:1955 Author Organization [place] Address [facility] [place] [address] Care Team Providers Name Role Phone Froylan Louise MD Primary Care Provider Unavailable Froylan Louise MD Unavailable Unavailable Froylan Louise MD Unavailable Unavailable Reason for Visit Reason Onset Date Comments Refill Request 08/19/2017 zolpidem (AMBIEN CR) 12.5 MG CR tablet Encounter Details Date Type Department Care Team Description 08/19/2017 Refill [facility] Froylan Louise Ra, Refill Request (zolpidem Chhaya VILLASEÑOR (AMBIEN CR) 12.5 [place] [address] [facility] tablet) [place] [address] Social History Tobacco Use [...] containing 4 or more times a w [place] 05/25/2021 alcohol? How many drinks containing alcohol [...] you attend episcopal or Patient refused 2020 jain services? Do [...] Notes Telephone Encounter - Carolin Dawson - 08/20/2017 9:18 AM CST Rx approved, [facility] Pharmacy will notified patient when prescription is ready to be picked up. Carolin Dawson Film Splicer OVERHAULER Telephone Encounter - Froylan Louise MD - 08/20/2017 8:58 AM CST Ok to fill. OVERHAULER Telephone Encounter - Hilda Santoyo, CINDY - 08/19/2017 4:46 PM CST PCP: Please see below. Pt requesting new script to be filled out of state. I called his local pharmacy [facility] in [place], last time they filled medication was 07/15/17. Please advise if you are ok sending in 1 time script to out of state pharmacy. We will need to call back [facility] in to notify them if we send in 1 month supply. Hilda Santoyo, CINDY -- [facility] OVERHAULER Telephone Encounter - Shakir Hernandez - 08/19/2017 3:33 PM CST zolpidem (AMBIEN CR) 12.5 MG CR tablet Last Written Prescription Date: 06/13/17 Last Fill Quantity: 30, # refills: 2 Last office visit: 06/13/2017 with prescribing provider: 06/13/17 Future Office Visit: Patient is in [place] and to get this filled out there [facility] needs new Rx faxed to them. [id number] [place], [facility] [address] [facility] OVERHAULER documented in this encounter Plan of Treatment Upcoming Encounters Date Type Specialty Care Team Description 05/20/2022 Lab Lab documented as of this encounter Visit Diagnoses Diagnosis Insomnia, unspecified type documented in this encounter Care Teams Laminating Press Operator Relationship Specialty Start Date End Date Froylan Louise MD PCP - General Family Practice 02/22/14 Froylan Louise MD PCP - Assigned PCP 03/13/14 08/25/18 Froylan Louise MD Assigned PCP 03/13/14 2 documented as of this encounter
--- OUTSIDE RECORDS SUMMARY | 2022-05-15 22:33 | XMS_ITS | Encounter Summary ---
:1955 Author Organization [place] Address [address] [place] [address] Care Team Providers Name Role Phone Froylan Louise MD Primary Care Provider Unavailable Froylan Louise MD Unavailable Unavailable Froylan Louise MD Unavailable Unavailable Encounter Details Date Type Department Care Team Description 01/15/2018 Anticoagulation Therapy [facility] Audrey Louise Long-term (current) Visit Clinic Chhaya Dubose MD use of anticoagulants [address] [place] [address] Social History Tobacco Use Types [...] containing 4 or more times a w [place] 05/25/2021 alcohol? How many drinks containing alcohol [...] you attend shinto or Patient refused 2020 hindu services? Do [...] Progress Notes Wendi Lindsay RN - 01/16/2018 9:04 AM CDT ANTICOAGULATION FOLLOW-UP CLINIC VISIT Patient Name: Virgil Christine Date: 01/16/2018 Contact Type: Telephone SUBJECTIVE: Patient Findings Positives No Problem Findings OBJECTIVE INR Date Value Ref Range Status 01/15/2018 2.20 (H) 0.86 - 1.14 Final Comment: This test is intended for monitoring Coumadin therapy. Results are not accurate in patients with prolonged INR due to factor deficiency. ASSESSMENT / PLAN No question data found. Anticoagulation Summary as of 01/15/2018 INR goal 2.0-3.0 Today's INR 2.20 Warfarin maintenance plan 5 mg (5 mg x 1) on Tue, Herlinda; 7.5 mg (7.5 mg x 1) all other days Full warfarin instructions 01/17: 5 mg; 01/18: 5 mg; Otherwise 5 mg on Tue, Herlinda; 7.5 mg all other days Weekly warfarin total 47.5 mg Plan last modified Wendi Lindsay RN (12/15/2017) Next INR check 01/22/2018 Target end date Indications Long-term (current) use [...] anticoagulants documented in this encounter Care Teams Wind Farm Designer Relationship Specialty Start Date End Date Froylan Louise MD PCP - General Family Practice 02/22/14 Froylan Louise MD PCP - Assigned PCP 03/13/14 08/25/18 Froylan Louise MD Assigned PCP 03/13/14 2 documented as of this encounter
--- OUTSIDE RECORDS SUMMARY | 2022-05-15 22:33 | XMS_ITS | Encounter Summary ---
:1955 Author Organization [place] Address [facility] [place] [address] Care Team Providers Name Role Phone Froylan Louise MD Primary Care Provider Unavailable Froylan Louise MD Unavailable Unavailable Froylan Louise MD Unavailable Unavailable Reason for Referral Diagnostic Imaging XR - Closed Specialty Diagnoses / Procedures Referred By Contact Refer red To Contact Radiology. Diagnoses Ulcerative colitis with complication, unspecified location (H) Chase Suazo MD Sh Xray Procedures XR Colon Water Soluble [facility] [address] [place] [address] [address] [place] [address] Referral ID Status Reason Start Date Expiration Date Visits Requ ested Visits Authorized [id number] Closed 07/08/2017 07/08/2018 1 1 REPORTING CONSULTANT Reason for Visit Diagnostic Imaging XR - Closed Specialty Diagnoses / Procedures Referred By Contact Refer red To Contact Radiology. Diagnoses Ulcerative colitis with complication, unspecified location (H) Chase Suazo MD Sh Xray Procedures XR Colon Water Soluble [facility] [address] [place] [phone] [address] [place] [address] Referral ID Status Reason Start Date Expiration Date Visits Requ ested Visits Authorized [id number] Closed 07/08/2017 07/08/2018 1 1 Encounter Details Date Type Department Care Team Description 07/08/2017 Hospital Encounter [facility] Chase Suazo erative colitis Southdakm Haywood MD with complication, [address] Jennifer [facility]ON RECTAL unspecified location [place] [address] [facility] (H) [phone] [address] [place] [id number] Social History Tobacco Use Types Packs/Day Years Used Date Smoking Tobacco: Former Cigarettes 2 25 Quit : 08/04/2006 Smokeless Tobacco: Never Comments: 2004 Alcohol Use Standard Drinks/Week Comments Yes 0 (1 standard drink = 0.6 oz pure alcoho l) 4 BEERS A WEEK Alcohol Habits Answer Date Recorded How often do you have a drink containing 4 or more times a w [place] 05/25/2021 alcohol? How many drinks containing alcohol [...] you attend mandaen or Patient refused 2020 restorationist services? Do [...] or Mild persistent asthma wheezing without complication ATROVENT HFA 17 MCG/ACT INHALE 2 PUFFS INTO 12.9 Inhaler 2 1 07/13/2017 InhalerIndications: THE LUNGS EVERY 6 Mild persistent [...] 2 TAKE 3-4 CAPSULES 480 capsule 0 06/1009/22/2017 MG capsuleIndications: (6-8 MG) BY MOUTH 3 H/O ulcerative colitis TIMES DAILY NEEDED FOR DIARRHEA order for Equipment being 2 Units 0 06/13/2017 8 DMEIndications: ordered: Postthrombotic syndrome compression stocking 2 pair knee high 20-30 mmHg oxyCODONE-acetaminophen Take 1-2 tablets by 20 tablet 0 06/11/2018 (PERCOCET) 5-325 MG per mouth every 6 hours tabletIndications: as needed for 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 sildenafil (VIAGRA) 50 Take 0.5-1 tablets 6 tablet 3 06/1305/25/2021 MG tabletIndications: (25-50 mg) by mouth Erectile dysfunction, daily as needed unspecified erectile dysfunction type triamcinolone (KENALOG) APPLY TOPICALLY 30 g 1 017 06/09/2018 0.1 % creamIndications: TWICE DAILY Lichen planus zolpidem (AMBIEN CR) TAKE ONE TABLET BY 30 tablet 2 017 08/19/2017 12.5 MG CR MOUTH NIGHTLY tabletIndications: NEEDED FOR SLEEP Insomnia, unspecified type documented as of this encounter Plan of Treatment Upcoming Encounters Date Type Specialty Care Team Description 05/20/2022 Lab Lab documented as of this encounter Procedures Procedure Name Priority Date/Time Associated Diagnosis Comme nts XR COLON WATER Routine 07/08/2017 3:15 PM Ulcerative colitis R esults for this SOLUBLE THERAPEUTIC SEC REPORTING CONSULTANT with complication, pr ocedure are in unspecified location the res ults (H) section. documented in this encounter Results XR Colon Water Soluble (07/08/2017 3:15 PM SEC REPORTING CONSULTANT) Anatomical Region Laterality Modality Colon Radio Fluoroscopy Specimen (Source) Anatomical Location Collection Method / Collectio n Time Received Time / Laterality Volume Impressions 07/08/2017 4:51 PM SEC REPORTING CONSULTANT IMPRESSION: No leakage of contrast identified. BRANDON CHRIS MD Narrative 07/08/2017 4:51 PM SEC REPORTING CONSULTANT COLON WATER SOLUBLE ??07/08/2017 3:15 PM HISTORY: Ulcerative colitis with complic ation, unspecified location (H). COMPARISON: None. FLUOROSCOPY TIME: .8 minutes. SPOT IMAGES OR CINE RUNS: 9 FINDINGS: A small catheter was placed in to the ileoanal pouch. Water-soluble contrast was administered. There is no leakage of contrast from the pouch. Satisfactory retrograde flow in the loops of small tigre wel. Procedure Note Brandon Chris MD - 07/08/2017F ormatting of this note might be different from the original. COLON WATER SOLUBLE 07/08/2017 3:15 PM HISTORY: Ulcerative colitis with complic ation, unspecified location (H). COMPARISON: None. FLUOROSCOPY TIME: .8 minutes. SPOT IMAGES OR CINE RUNS: 9 FINDINGS: A small catheter was placed in to the ileoanal pouch. Water-soluble contrast was administered. There is no leakage of contrast from the pouch. Satisfactory retrograde flow in the loops of small tigre wel. IMPRESSION: No leakage of contrast ident ified. BRANDON CHRIS MD Chase Suazo MD IMG DIAGNOSTIC IMAGING ORDER SADIQ documented in this encounter Visit Diagnoses Diagnosis Ulcerative colitis with complication, un specified location (H) documented in this encounter Administered Medications Inactive Administered Medications - up to 3 most recent administrations Medication Order MAR Action Action Date Dose Rate Site diatrizoate meglumine-sodium Given 07/08/2017 3:35 PM SEC REPORTING CONSULTANT 240 mL s (GASTROGRAFIN; GASTROVIEW) 66-10 % solution 240 mL 240 mL, Rectal, ONCE, On Fri07/08/17 at 1545, For 1 dose documented in this encounter Care Teams Nutrition Counselor Relationship Specialty Start Date End Date Froylan Louise MD PCP - General Family Practice 02/22/14 Froylan Louise MD PCP - Assigned PCP 03/13/14 08/25/18 Froylan Louise MD Assigned PCP 03/13/14 2 documented as of this encounter
--- OUTSIDE RECORDS SUMMARY | 2022-05-15 22:33 | XMS_ITS | Encounter Summary ---
:1955 Author Organization [place] Address [address] [place] [address] Care Team Providers Name Role Phone Froylan Louise MD Primary Care Provider Unavailable Froylan Louise MD Unavailable Unavailable Froylan Louise MD Unavailable Unavailable Encounter Details Date Type Department Care Team Description 12/15/2017 Anticoagulation Therapy [facility] Long-term (current) Visit [facility] use of anticoagulants [address] [place] [address] Social History Tobacco Use Types [...] or more times a w [place] 05/25/2021 alcohol? How many drinks containing alcohol [...] you attend mandaen or Patient refused 2020 buddhist services? Do [...] encounter Progress Notes Wendi Lindsay RN - 12/15/2017 4:14 PM CDT ANTICOAGULATION FOLLOW-UP CLINIC VISIT Patient Name: Virgil Christine Date: 12/15/2017 Contact Type: Face to Face SUBJECTIVE: Patient Findings Positives Initiation of therapy OBJECTIVE INR Protime Date Value Ref Range Status 12/15/2017 2.3 (A) 0.86 - 1.14 Final ASSESSMENT / PLAN INR assessment THER Recheck INR In: 1 WEEK INR Location Clinic Anticoagulation Summary as of 12/15/2017 INR goal 2.0-3.0 Today's INR 2.3 Warfarin maintenance plan 5 mg (5 mg x 1) on Tue, Herlinda; 7.5 mg (7.5 mg x 1) all other days Full warfarin instructions 5 mg on Tue, Herlinda; 7.5 mg all other days Weekly warfarin total 47.5 mg Plan last modified Wendi Lindsay RN (12/15/2017) Next INR check 12/22/2017 Target end date Indications Long-term (current) use [...] Comme nts INR POINT OF CARE Routine 12/15/2017 Long-term (current) use of Results for this anticoagulants procedure are in the results section . documented in this encounter Results (ABNORMAL) INR point of care (12/15/2017) P athologist Signature INR Point of 2.3 (A) 0.86 - [facility] 1.14 [facility] Specimen (Source) Anatomical Location Collection Method / Collectio n Time Received Time / Laterality Volume 12/15/2017 Froylan Louise MD LAB - BLOOD ORDERABLES Performing Organization Address City/State/ZIP Code Phon e Number [facility] [address] [place] [address] documented in this encounter Visit Diagnoses Diagnosis Long-term (current) use of anticoagulant s Encounter for long-term (current) use of anticoagulants documented in this encounter Care Teams Media Analytics Manager Relationship Specialty Start Date End Date Froylan Louise MD PCP - General Family Practice 02/22/14 Froylan Louise MD PCP - Assigned PCP 03/13/14 08/25/18 Froyaln Louise MD Assigned PCP 03/13/14 2 documented as of this encounter
--- OUTSIDE RECORDS SUMMARY | 2022-05-15 22:33 | XMS_ITS | Encounter Summary ---
:1955 Author Organization [employer] Address [address] [place] [address] Care Team Providers Name Role Phone Froylan Louise MD Primary Care Provider Unavailable Froylan Louise MD Unavailable Unavailable Froylan Louise MD Unavailable Unavailable Encounter Details Date Type Department Care Team Description 01/05/2018 Orders Only [facility] Pos tthrombotic syndrome; [facility] Anticardiolipin antibody pos itive; [id number] [facility] Chronic deep vein thrombosis (DVT) of lower extremity, unspecified laterality, unspecified vein (H) [place] [address] Social History Tobacco Use Types Packs/Day [...] Priority Associated Diagnoses Date/Ti me F2 prothrombin [id number] Lab Routine 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 Chronic deep vein thrombosis (DVT) of lower extremity, unspecified laterality, unspecified vein (H) Factor 5 leiden mutation Lab Routine Postthr ombotic syndrome 01/05/2018 4:15 PM analysis Anticardiolipin antibody CDT positive Chronic deep vein thrombosis (DVT) of lower extremity, unspecified laterality, unspecified vein (H) documented as of this encounter Procedures Procedure Name Priority Date/Time Associated Diagnosis Comme nts FACTOR 2 PROTHROMBIN Routine 01/05/2018 4:15 Postthrombotic [id number] MUT ANAL PM CDT syndrome Anticardiolipin antibody positiv e Chronic deep vein thrombosis (DVT) of lower extremity, unspecified laterality, unspecified vein (H) FACTOR 2 AND 5 Routine 01/05/2018 4:15 Results fo r this MUTATION ANALYSIS PM CDT procedure are in the results section. CARDIOLIPIN TERRA IGG Routine 01/05/2018 4:15 Postthrombotic Res ults for this AND IGM PM CDT syndrome procedure are in Anticardiolipin the results antibody positiv e section. Chronic deep vein thrombosis (DVT) of lower extremity, unspecified laterality, unspecified vein (H) BETA 2 GLYCOPROTEIN Routine 01/05/2018 4:15 Postthrombotic Res ults for this ANTIBODIES IGG IGM PM CDT syndrome procedure are in Anticardiolipin the results antibody positiv e section. Chronic deep vein thrombosis (DVT) of lower extremity, unspecified laterality, unspecified vein (H) CBC WITH PLATELETS & Routine 01/05/2018 4:15 Postthrombotic Re sults for this DIFFERENTIAL PM CDT syndrome procedure are in Anticardiolipin the results antibody positiv e section. Chronic deep vein thrombosis (DVT) of lower extremity, unspecified laterality, unspecified vein (H) LUPUS ANTICOAGULANT Routine 01/05/2018 4:15 Postthrombotic Res ults for this PANEL PM CDT syndrome procedure are in Anticardiolipin the results antibody positiv e section. Chronic deep vein thrombosis (DVT) of lower extremity, unspecified laterality, unspecified vein (H) FACTOR 5 LEIDEN Routine 01/05/2018 4:15 Postthrombotic MUTATION ANALYSIS PM CDT syndrome Anticardiolipin antibody positiv e Chronic deep vein thrombosis (DVT) of lower extremity, unspecified laterality, unspecified vein (H) ERYTHROCYTE Routine 01/05/2018 4:15 Postthrombotic Results fo r this SEDIMENTATION RATE PM CDT syndrome procedure are in AUTO Anticardiolipin the results antibody positiv e section. Chronic deep vein thrombosis (DVT) of lower extremity, unspecified laterality, unspecified vein (H) D DIMER QUANTITATIVE Routine 01/05/2018 4:15 Postthrombotic Re sults for this PM CDT syndrome procedure are in Anticardiolipin the results antibody positiv e section. Chronic deep vein thrombosis (DVT) of lower extremity, unspecified laterality, unspecified vein (H) CRP INFLAMMATION Routine 01/05/2018 4:15 Postthrombotic Result s for this PM CDT syndrome procedure are in Anticardiolipin the results antibody positiv e section. Chronic deep vein thrombosis (DVT) of lower extremity, unspecified laterality, unspecified vein (H) COMPREHENSIVE Routine 01/05/2018 4:15 Postthrombotic Results f or this METABOLIC PANEL PM CDT syndrome procedure are in Anticardiolipin the results antibody positiv e section. Chronic deep vein thrombosis (DVT) of lower extremity, unspecified laterality, unspecified vein (H) ANTITHROMBIN III Routine 01/05/2018 4:15 Postthrombotic Result s for this PM CDT syndrome procedure are in Anticardiolipin the results antibody positiv e section. Chronic deep vein thrombosis (DVT) of lower extremity, unspecified laterality, unspecified vein (H) documented in this encounter Results Homocysteine (01/06/2018 3:54 PM CDT) Analysis Performed At Patho logist Time Signature Homocysteine 9.7 4.0 - 12.0 01/14/2018 [facility] umol/L umol/L 10:16 AM CDT [facility] Comment: A normal plasma homocysteine level likel y rules out genetic defects in homocysteine metabolism. Specimen Anatomical Collection Method Collection Time Receive d Time (Source) Location / / Volume Laterality Blood specimen 01/06/2018 3:54 PM 018 3:55 (specimen) CDT PM CDT Felipe Charles MD LAB - BLOOD ORDERABLES Performing Organization Address City/State/ZIP Code Phon e Number [facility] [address] [place] [address] [place] Factor 2 and 5 mutation analysis (01/05/2018 4:15 PM CDT) Component Value Ref Test Analysis Performed At [facility] Range Method Time Signature Copath Report Patient Name: ANITA CHRISTINE MR#: [id number] Specimen #: [id number] Collected: 01/05/2018 16:15 Received: 01/07/2018 10:08 Reported: 01/08/2018 16:41 Ordering Phy(s): FELIPE CHARLES For improved result formatting, select 'View Enhanced Report Format' under Linked Documents section. TEST(S) REQUESTED: Factor 5 Leiden and Factor 2 by PCR SPECIMEN DESCRIPTION: Blood METHODOLOGY: ?? The regions of genomic DNA containing the G1 691A Factor V Leiden gene mutation (Factor V Leiden) and the Factor 2(Prothrombin G65603A) gene mutation were simultaneously amplified using the polymerase chain reaction. ??The amplified products were digested with restriction endonuclease TaqI and products were analyzed by gel electrophoresis. RESULTS: Factor V 1691G>A (Leiden) ??RESULTS: Mutation analyzed: ? 1691G>A Factor V 1691G>A (Leiden) ??Interpretation: ?ABSENT Factor V 1691G>A (Leiden) mutation ??genotype: ?G/G FACTOR 2/PROTHROMBIN RESULTS: Mutation analyzed: ? 93779U>A Factor 2 Mutation Interpretation: ?ABSENT Factor 2 Mutation genotype: ?G/G INTERPRETATION: The patient is negative for the Factor V 1691G>A (Leiden) an d negative for the Factor 2 mutation. COMMENTS: If a patient is the recipient of an allogeneic bone marrow t ransplant, this test must be done on a pre-transplant sample or buccal swab. ??A previous allogenei c bone marrow transplant will interfere with test results. ??Call the [facility]([phone]) for instructions on sample collection for these patients. This test was developed and its performance characteristics determined by the [facility], ??[facility]. It has not been cleared or approved by the FDA. The laboratory is regulated under CLIA as qualified to perform high-complexity testing. This test is used for clinical purposes. It should not be regarded as investigational or for research . A resident/fellow in an accredited training program was invo lved in the selection of testing, review of laboratory data, and/or interpretation of this case. ??I, as the senior physician, attest that I: (i) confirmed appropriate testing, (ii) examined the relevant raw data for the specimen(s); and (iii) rendered or confirmed the interpretation(s). Electronically Signed Out By: Mauricio Chavez MD CPT Codes: A: 29122-E6ORTT, 84698-J3ZFJX, Q7880-HGYJNC(2) TESTING LAB LOCATION: [address] [address] COLLECTION SITE: Client: ??[facility] Location: ??[facility] (R) Specimen Anatomical Collection Method Collection Time Receive d Time (Source) Location / / Volume Laterality 01/05/2018 4:15 PM 8 CDT 10:08 AM CDT Felipe Charles MD LAB - GENOMICS Performing Organization Address City/State/ZIP Code Phon e Number [place] (ABNORMAL) Lupus Anticoagulant Panel (01/05/2018 4:15 PM CDT) [facility] Method Time Signature Lupus Result Positive (A) NEG^Negat 01/08/2018 [facility] 1:05 PM CDT [facility] Comment: (Note) COMMENTS: INR is elevated. APTT [...] and edited/confirmed by me. Rose Dorsey M.D. ??[phone] 01/08/2018 ? INR = ?2.87 ?Reference range: [...] PM 018 4:16 (specimen) CDT PM CDT Felipe Charles MD LAB - BLOOD ORDERABLES Performing Organization Address City/State/ZIP Code Phon e Number [facility] [address] [place] [address] [facility] Erythrocyte sedimentation rate auto (01/05/2018 4:15 PM CDT) athologist Signature Sed Rate 16 0 - 20 mm/h 01/05/2018 [place] 5:22 PM CDT [facility] Specimen Anatomical Collection Method Collection Time Receive d Time (Source) Location / / Volume Laterality Blood specimen 01/05/2018 4:15 PM 018 4:16 (specimen) CDT PM CDT Felipe Charles MD LAB - BLOOD ORDERABLES Performing Organization Address [facility]/ZIP Code Phon e Number [facility] [address] [place] [address] D dimer quantitative (01/05/2018 4:15 PM CDT) athologist Signature D Dimer 0.5 0.0 - 0.50 01/06/2018 [facility] ug/ml FEU 2:14 PM CDT [facility] Comment: This D-dimer assay is [...] PM 018 4:16 (specimen) CDT PM CDT Felipe Charles MD LAB - BLOOD ORDERABLES Performing Organization Address City/[facility]/ZIP Code Phon e Number [facility] [address] [place] [address] (ABNORMAL) CRP inflammation (01/05/2018 4:15 PM CDT) Patholo gist Method Time Signature CRP Inflammation 19.0 (H) 0.0 - 8.0 01/06/2018 [facility] F mg/L 4:48 PM CDT [facility] Specimen Anatomical Collection Method Collection Time Receive d Time (Source) Location / / Volume Laterality Blood specimen 01/05/2018 4:15 PM 018 4:16 (specimen) CDT PM CDT Felipe Charles MD LAB - BLOOD ORDERABLES Performing Organization Address City/State/ZIP Code Phon e Number [facility] [address] [place], [place] [id number] [place] [address] Comprehensive metabolic panel (01/05/2018 4:15 PM CDT) P athologist Signature Sodium 142 133 - 144 01/06/2018 [facility] mmol/L 4:08 PM CDT [facility] Potassium 4.3 3.4 - 5.3 01/06/2018 [facility] mmol/L 4:[address] [facility] Chloride 107 94 - 109 01/06/2018 [facility] mmol/L 4:[address] [facility] Carbon Dioxide 25 20 - 32 01/06/2018 [facility] mmol/L 4:[address] [facility] Anion Gap 10 3 - 14 01/06/2018 [facility] mmol/L 4:[address] [facility] Glucose 96 70 - 99 01/06/2018 [facility] mg/dL 4:[address] [facility] Urea Nitrogen 16 7 - 30 01/06/2018 [facility] mg/dL 4:[address] [facility] Creatinine 0.88 0.66 - 01/06/2018 [facility] 1.25 mg/dL 4:08 PM CDT [facility] GFR Estimate 89 >60 01/06/2018 [place] mL/min/1.7 4:08 PM CDT CLINICS m2 [facility] Comment: Non GFR Calc GFR Estimate If >90 >60 mL/min/1.7m2 01/06/2018 4:08 P M [facility] Black T [facility] Comment: GFR Calc Calcium 9.3 8.5 - 10.1 01/06/2018 4:08 PM [facility] mg/dL T [facility] Bilirubin Total 0.6 0.2 - 1.3 mg/dL 01/06/2018 4:08 PM [facility] Albumin 3.8 3.4 - 5.0 g/dL 01/06/2018 4:[address] [facility] Protein Total 8.0 6.8 - 8.8 g/dL 01/06/2018 4:08 PM [facility] Alkaline Phosphatase 86 40 - 150 U/L 01/06/2018 4:08 PM [facility] ALT 23 0 - 70 U/L 01/06/2018 4:08 PM [facility] AST 10 0 - 45 U/L 01/06/2018 4:08 PM [facility] Specimen Anatomical Collection Method Collection Time Receive d Time (Source) Location / / Volume Laterality Blood specimen 01/05/2018 4:15 PM 018 4:16 (specimen) CDT PM CDT Felipe Charles MD LAB - BLOOD ORDERABLES Performing Organization Address City/State/ZIP Code Phon e Number [facility] [address] [place] [address] CBC with platelets differential (01/05/2018 4:15 PM CDT) [facility] Method Time Signature WBC 8.8 4.0 - 01/05/2018 [place] 11.0 5:11 PM CDT [facility] 10e9/L [place] RBC Count 4.98 4.4 - 5.9 01/05/2018 [place] 10e12/L 5:11 PM CDT [facility] Hemoglobin 14.8 13.3 - 01/05/2018 [place] 17.7 g/dL 5:11 PM CDT [facility] Hematocrit 45.2 40.0 - 01/05/2018 [place] 53.0 % 5:11 PM CDT [facility] MCV 91 78 - 100 01/05/2018 [place] fl 5:11 PM CDT [facility] MCH 29.7 26.5 - 01/05/2018 [place] 33.0 pg 5:11 PM CDT [facility] [place] MCHC 32.7 31.5 - 01/05/2018 [place] 36.5 g/dL 5:11 PM CDT [facility] [place] RDW 13.3 10.0 - 01/05/2018 [place] 15.0 % 5:11 PM CDT [facility] Platelet Count 242 150 - 450 01/05/2018 [place] 10e9/L 5:11 PM CDT [facility] Diff Method Automated 01/05/2018 [place] Method 5:11 PM CDT [facility] [place] % Neutrophils 78.1 % 01/05/2018 [facility] 5:11 PM CDT [facility] [place] % Lymphocytes 14.2 % 01/05/2018 [place] 5:11 PM CDT [facility] [place] % Monocytes 7.0 % 01/05/2018 [place] 5:11 PM CDT [facility] [place] % Eosinophils 0.5 % 01/05/2018 [place] 5:11 PM CDT [facility] [place] % Basophils 0.2 % 01/05/2018 [place] 5:11 PM CDT [facility] [place] Absolute 6.9 1.6 - 8.3 01/05/2018 [place] Neutrophil 10e9/L 5:11 PM CDT [facility] [place] Absolute 1.2 0.8 - 5.3 01/05/2018 [place] Lymphocytes 10e9/L 5:11 PM CDT [facility] [place] Absolute 0.6 0.0 - 1.3 01/05/2018 [place] Monocytes 10e9/L 5:11 PM CDT [facility] Absolute 0.0 0.0 - 0.7 01/05/2018 [place] Eosinophils 10e9/L 5:11 PM CDT [facility] [place] Absolute 0.0 0.0 - 0.2 01/05/2018 [place] Basophils 10e9/L 5:11 PM CDT [facility] [place] Specimen Anatomical Collection Method Collection Time Receive d Time (Source) Location / / Volume Laterality Blood specimen 01/05/2018 4:15 PM 018 4:16 (specimen) CDT PM CDT Felipe Charles MD LAB - BLOOD ORDERABLES Performing Organization Address City/State/ZIP Code Phon e Number [facility] [address] [place] [address] Cardiolipin Terra IgG and IgM (01/05/2018 4:15 PM CDT) P athologist Signature Cardiolipin <1.6 0.0 - 19.9 01/07/2018 [facility] Antibody IgG GPL-U/mL 9:22 AM CDT [facility] Comment: Negative Cardiolipin Antibody 2.9 0.0 - 19.9 01/07/2018 9:22 AM [facility] IgM MPL-U/mL T [facility] Comment: Negative Specimen Anatomical Collection Method Collection Time Receive d Time (Source) Location / / Volume Laterality Blood specimen 01/05/2018 4:15 PM 018 4:16 (specimen) CDT PM CDT Felipe Charles MD LAB - BLOOD ORDERABLES Performing Organization Address [facility] Phon e Number [address] Beta 2 Glycoprotein Antibodies IGG IGM (01/05/2018 4:15 PM CDT) Analysis Performed At Patho logist Time Signature Beta 2 <0.6 <7 U/mL 01/07/2018 [facility] Glycoprotein 1 1:34 PM CDT [facility] IgG [facility] Comment: Negative Beta 2 Glycoprotein 1 1.6 <7 U/mL 01/07/2018 1:31 PM CDT [facility] Antibody IgM [facility] Comment: Negative Specimen Anatomical Collection Method Collection Time Receive d Time (Source) Location / / Volume Laterality Blood specimen 01/05/2018 4:15 PM 018 4:16 (specimen) CDT PM CDT Felipe Charles MD LAB - BLOOD ORDERABLES Performing Organization Address City/[facility] Phon e Number [address] Antithrombin III (01/05/2018 4:15 PM CDT) Analysis Performed At Patho logist Time Signature Antithrombin III 107 85 - 135 % 01/08/2018 [facility] Chromogenic 7:13 AM CDT [facility] Specimen Anatomical Collection Method Collection Time Receive d Time (Source) Location / / Volume Laterality Blood specimen 01/05/2018 4:15 PM 07/16/2 018 4:16 (specimen) CDT PM CDT Felipe Charles MD LAB - BLOOD ORDERABLES Performing Organization Address City/State/ZIP Code Phon e Number [facility] [address] [place], [place] [address] [place] [address] documented in this encounter Visit Diagnoses Diagnosis 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
--- OUTSIDE RECORDS SUMMARY | 2022-05-15 22:33 | XMS_ITS | Encounter Summary ---
:1955 Author Organization [employer] Address [address] [place] [address] Care Team Providers Name Role Phone Froylan Louise MD Primary Care Provider Unavailable Froylan Louise MD Unavailable Unavailable Froylan Louise MD Unavailable Unavailable Reason for Visit Reason Onset Date Comments Referral 12/31/2017 Encounter Details Date Type Department Care Team Description 12/31/2017 Telephone [facility] Vascular Kelsi Pham concrete [facility] [address] [address] Social History Tobacco Use Types Packs/Day [...] you attend nondenominational or Patient refused 2020 orthodox services? Do [...] this encounter Miscellaneous Notes Telephone Encounter - Neida Rodriguez MA - 01/02/2018 2:03 PM CDT Patient has been scheduled for consult on 01/05/[address] Charles. Telephone Encounter - Tanya Bueno - 01/01/2018 11:37 AM CDT Called and left a message for the patient to call us back to schedule a consult appointment with vascular medicine. Telephone Encounter - Homa Pham RN - 12/31/2017 2:30 PM CDT Pt referred to [facility] by Froylan Louise MD for Postthrombotic syndrome,Anticardiolipin antibody positive, Chronic deep vein thrombosis (DVT) of lower extremity, unspecified??laterality, unspecified vein. Pt needs to be scheduled for and consult with Vascular Medicine. Will route to scheduling to coordinate an appointment at next available. JORGE De Los Santos RN documented in this encounter Plan of Treatment Upcoming Encounters Date Type Specialty Care Team Description 05/20/2022 Lab Lab documented as of this encounter Visit Diagnoses Not on filedocumented in this encounter Care Teams Transfer Iron Operator Relationship Specialty Start Date End Date Froylan Louise MD PCP - General Family Practice 02/22/14 Froylan Louise MD PCP - Assigned PCP 03/13/14 08/25/18 Froylan Louise MD Assigned PCP 03/13/14 2 documented as of this encounter
--- OUTSIDE RECORDS SUMMARY | 2022-05-15 22:33 | XMS_ITS | Encounter Summary ---
:1955 Author Organization [place] Address [facility] [place] [address] Care Team Providers Name Role Phone Froylan Louise MD Primary Care Provider Unavailable Froylan Louise MD Unavailable Unavailable Froylan Louise MD Unavailable Unavailable Reason for Referral Consultation - Closed Specialty Diagnoses / Procedures Referred By Contact Refer red To Contact Diagnoses Postthrombotic syndrome Anticardiolipin antibody positive Chronic deep vein thrombosis (DVT) of lower extremity, unspecified laterality, unspecified vein (H) Froylan Louise MD [facility] [address] [place] [address] [facility], [address] [place] [phone] Phone: Fax: Referral ID Status Reason Start Date Expiration Date Visits Requ ested Visits Authorized [id number] Closed 12/31/2017 12/31/2018 1 1 Reason for Visit Reason Onset Date Comments Results 12/26/2017 Encounter Details Date Type Department Care Team Description 12/26/2017 Telephone [facility] Froylan Louise Ra, MD Results [place] [address] [place] [address] Social History Tobacco Use [...] containing 4 or more times a w [place] 05/25/2021 alcohol? How many drinks containing [...] you attend restoration or Patient refused 2020 sikh services? Do [...] Telephone Encounter - Esthela Corea RN - 12/31/2017 12:07 PM CDT Pt notified will give referral information at INR appt today Esthela Corea RN Telephone Encounter - Froylan Louise MD - 12/31/2017 11:45 AM CDT Stay on coumadin. Recommend vascular follow-up with persistent clot as noted. Telephone Encounter - Wendi Lindsay RN - 12/26/2017 3:17 PM CDT [facility] calling with ultrasound results and will send over the results once final. The Right leg still has the clot as previously seen and there are superficial clots in the R GSV, L GSV, and L SSV. FYI to PCP Wendi Lindsay RN, BSN documented in this encounter Plan of Treatment Upcoming Encounters Date Type Specialty Care Team Description 05/20/2022 Lab Lab Scheduled Referrals Name Type Priority Associated Diagnoses Order S chedule VASCULAR REFERRAL Referral Routine Postthrombotic syndrome Ordered: 12/31/2017 Anticardiolipin antibody positive Chronic deep vein thrombosis (DVT) of lower extremity, unspecified laterality, unspecified vein (H) documented as of this encounter Visit Diagnoses Diagnosis Postthrombotic syndrome - Primary Postphlebetic syndrome without complicat ions Anticardiolipin antibody positive Other and unspecified nonspecific immuno logical findings Chronic deep vein thrombosis (DVT) of lo wer extremity, unspecified laterality, unspecified vein (H) documented in this encounter Care Teams Web Operations Specialist Relationship Specialty Start Date End Date Froylan Louise MD PCP - General [facility] Practice 02/22/14 Froylan Louise MD PCP - Assigned PCP 03/13/14 08/25/18 Froylan Louise MD Assigned PCP 03/13/14 2 documented as of this encounter
--- OUTSIDE RECORDS SUMMARY | 2022-05-15 22:33 | XMS_ITS | Encounter Summary ---
:1955 Author Organization [place] Address [address] [place] [address] Care Team Providers Name Role Phone Froylan Louise MD Primary Care Provider Unavailable Froylan Louise MD Unavailable Unavailable Froylan Louise MD Unavailable Unavailable Encounter Details Date Type Department Care Team Description 12/22/2017 Anticoagulation Therapy [facility] Long-term (current) use of anticoagulants; Visit Clinic [place] Acute deep vein thrombosis ( DVT) of proximal vein of both lower extremities (H) [address] [place] [address] Social History Tobacco Use Types [...] containing 4 or more times a w [place] 05/25/2021 alcohol? How many drinks containing alcohol [...] you attend advent or Patient refused 2020 religion services? Do [...] Progress Notes Page, Esthela Conrad RN - 12/22/2017 4:05 PM CDT ANTICOAGULATION FOLLOW-UP CLINIC VISIT Patient Name: Virgil Christine Date: 12/22/2017 Contact Type: Face to Face SUBJECTIVE: Patient Findings Positives No Problem Findings OBJECTIVE INR Protime Date Value Ref Range Status 12/22/2017 3.1 (A) 0.86 - 1.14 Final ASSESSMENT / PLAN No question data found. Anticoagulation Summary as of 12/22/2017 INR goal 2.0-3.0 Today's INR 3.1! Warfarin maintenance plan 5 mg (5 mg x 1) on Tue, Herlinda; 7.5 mg (7.5 mg x 1) all other days Full warfarin instructions 5 mg on Tue, Herlinda; 7.5 mg all other days Weekly warfarin total 47.5 mg Plan last modified Wendi Lindsay RN (12/15/2017) Next INR check 12/29/2017 Target end date Indications Long-term (current) use of anticoagulants [Z79.01] [Z79.01] Embolism and thrombosis (H) (Resolved) [I74.9] Anticoagulation Episode Summary INR check location Preferred lab Send INR reminders to [facility] Comments See the Encounter Report to view Anticoagulation Flowsheet and Dosing Calendar (Go to Encounters tabin chart review, and find the Anticoagulation Therapy Visit) Eshtela Corea RN documented in this encounter Plan of Treatment Upcoming Encounters Date Type Specialty Care Team Description 05/20/2022 Lab Lab documented as of this encounter Procedures Procedure Name Priority Date/Time Associated Diagnosis Comme nts INR POINT OF CARE Routine 12/22/2017 Long-term (current) use of Results for this anticoagulants procedure are in the results section . documented in this encounter Results (ABNORMAL) INR point of care (12/22/2017) P athologist Signature INR Point of 3.1 (A) 0.86 - [facility] 1.14 [facility] Specimen (Source) Anatomical Location Collection Method / Collectio n Time Received Time / Laterality Volume 12/22/2017 Froylan Louise MD LAB - BLOOD ORDERABLES Performing Organization Address City/State/ZIP Code Phon e Number [facility] [id number] [place] [address] documented in this encounter Visit Diagnoses Diagnosis Long-term (current) use of anticoagulant s Encounter for long-term (current) use of anticoagulants Acute deep vein thrombosis (DVT) of prox imal vein of both lower extremities (H) documented in this encounter Care Teams Crown Assembly Machine Set Up Mechanic Relationship Specialty Start Date End Date Froylan Louise MD PCP - General Family Practice 02/22/14 Froylan Louise MD PCP - Assigned PCP 03/13/14 08/25/18 Froylan Louise MD Assigned PCP 03/13/14 2 documented as of this encounter
--- OUTSIDE RECORDS SUMMARY | 2022-05-15 22:34 | XMS_ITS | Encounter Summary ---
:1955 Author Organization [place] Address [address] [place] [address] Care Team Providers Name Role Phone Froylan Louise MD Primary Care Provider Unavailable Froylan Louise MD Unavailable Unavailable Froylan Louise MD Unavailable Unavailable Reason for Visit Reason Comments Medication Refill ATROVENT Encounter Details Date Type Department Care Team Description 10/04/2016 Refill [facility] Froylan Louise Ra, Medication Refill Chhaya VILLASEÑOR (ATROVENT) [address] [place] [address] Social History Tobacco Use [...] you attend scientologist or Patient refused 2020 sikhism services? Do [...] this encounter Miscellaneous Notes Telephone Encounter - Sonia Craven, RN - 10/04/2016 10:33 AM CDT Prescription approved per [facility] Refill Protocol. Sonia Craven RN, BSN, PHN Telephone Encounter - Carlos Alberto Black - 10/04/2016 8:09 AM CDT Pending Prescriptions: Disp Refills ATROVENT HFA 17 MCG/ACT Inhaler [Pharmacy*12.9 I*3 Sig: INHALE 2 PUFFS INTO THE LUNGS EVERY 6 HOURS Last Written Prescription Date: 03/08/16 Last Fill Quantity: 1, # refills: [address] Visit with [facility], [facility] or [facility] prescribing provider: 01/24/16 Date of Last Asthma Action Plan Letter: Asthma Action Plan Q1 Year Topic Date Due ??? Asthma Action Plan - yearly 05/11/2016 Asthma Control Test: ACT Total Scores 01/24/2016 ACT TOTAL SCORE - ASTHMA ER VISITS - ASTHMA HOSPITALIZATIONS - ACT TOTAL SCORE (Goal Greater than or Equal to 20) 24 In the past 12 months, how many times did you visit the emergency room for your asthma without beingadmitted to the hospital? 0 In the past 12 months, how many times were you hospitalized overnight because of your asthma? 0 Date of Last Spirometry Test: No results found for this or any previous visit. Carlos Alberto Black XRT documented in this encounter Plan of Treatment Upcoming Encounters Date Type Specialty Care Team Description 05/20/2022 Lab Lab documented as of this encounter Visit Diagnoses Diagnosis Mild persistent asthma without complicat ion Unspecified asthma documented in this encounter Care Teams Skin Care Technician Relationship Specialty Start Date End Date Froylan Louise MD PCP - General Family Practice 02/22/14 Froylan Louise MD PCP - Assigned PCP 03/13/14 08/25/18 Froylan Louise MD Assigned PCP 03/13/14 2 documented as of this encounter
--- OUTSIDE RECORDS SUMMARY | 2022-05-15 22:34 | XMS_ITS | Encounter Summary ---
:1955 Author Organization [place] Address [address] [place] [address] Care Team Providers Name Role Phone Froylan Louise MD Primary Care Provider Unavailable Froylan Louise MD Unavailable Unavailable Froylan Louise MD Unavailable Unavailable Reason for Visit Reason Comments Medication Refill triamcinolone (KENALOG) 0.1 % cream Encounter Details Date Type Department Care Team Description 03/10/2017 Refill [facility] Froylan Louise Ra, Medication Refill Chhaya VILLASEÑOR (triamcinolone (KENALOG) [address] [facility] 0.1 % cream) [place] [address] Social History Tobacco Use [...] you attend sikhism or Patient refused 2020 uatsdin services? Do [...] Telephone Encounter - Wendi Lindsay RN - 03/11/2017 7:52 AM CDT Prescription approved per [facility] Refill Protocol. Wendi Lindsay RN, BSN Telephone Encounter - Thais Ayala - 03/10/2017 3:51 PM CDT Pending Prescriptions: Disp Refills triamcinolone (KENALOG) 0.1 % cream [Phar*30 g 1 Sig: APPLY TOPICALLY TWICE DAILY Last Written Prescription Date: 09/23/2016 Last Fill Quantity: 30g, # refills: 1 Last Office Visit with [facility], [facility] or [facility] prescribing provider: 10/01/2016, [place] documented in this encounter Plan of Treatment Upcoming Encounters Date Type Specialty Care Team Description 05/20/2022 Lab Lab documented as of this encounter Visit Diagnoses Diagnosis Lichen planus documented in this encounter Care Teams Mailing Machine Operator Relationship Specialty Start Date End Date Froylan Louise MD PCP - General Family Practice 02/22/14 Froylan Louise MD PCP - Assigned PCP 03/13/14 08/25/18 Froylan Louise MD Assigned PCP 03/13/14 2 documented as of this encounter
--- OUTSIDE RECORDS SUMMARY | 2022-05-15 22:34 | XMS_ITS | Encounter Summary ---
:1955 Author Organization [place] Address [facility] [place] [address] Care Team Providers Name Role Phone Froylan Louise MD Primary Care Provider Unavailable Froylan Louise MD Unavailable Unavailable Froylan Louise MD Unavailable Unavailable Reason for Visit Reason Onset Date Comments Erroneous encounter-disregard 09/22/2017 Encounter Details Date Type Department Care Team Description 07/04/2017 Office Visit [facility] Vein David Love [facility] Latesha Thomson MD ENCOUNTER--DISREGARD [address]) [address] [place] [address] [place] [address] Social History Tobacco Use Types Packs/Day Years Used Date Smoking Tobacco: Former Cigarettes 2 25 Quit : 08/04/2006 Smokeless Tobacco: Never Comments: 2004 Alcohol Use Standard Drinks/Week Comments Yes 0 (1 standard drink = 0.6 oz pure alcoho l) 4 BEERS A WEEK Alcohol Habits Answer Date Recorded How often do you have a drink containing 4 or more times a w [place] 05/25/2021 alcohol? How many drinks containing alcohol [...] you attend denominational or Patient refused 2020 sikhism services? Do [...] documented as of this encounter Progress Notes Jessica Patel - 09/22/2017 2:13 PM CDT This encounter was opened in error. Please disregard. David Love MD - 07/04/2017 3:15 PM CST Mr. Christine was seen previously by Dr. Blevins for a right lateral malleolus ulcer. He had previous DVT in the right lower extremity that had resulted in chronic venous insufficiency. With compression and local wound care the ulcer in the right lower extremity has healed. He has varicose veins, that he reports, in his left lower extremity, but the discomfort is minimal. He then told me that he is here to talk about his erectile dysfunction. I advised him very frankly that his ED and venous insufficiency are not related. He is relocating permanently to [place]. documented in this encounter Plan of Treatment Upcoming Encounters Date Type Specialty Care Team Description 05/20/2022 Lab Lab documented as of this encounter Visit Diagnoses Diagnosis ERRONEOUS ENCOUNTER--DISREGARD - Primary documented in this encounter Care Teams Ict Trainer Relationship Specialty Start Date End Date Froylan Louise MD PCP - General Family Practice 02/22/14 Froylan Louise MD PCP - Assigned PCP 03/13/14 08/25/18 Froylan Louise MD Assigned PCP 03/13/14 2 documented as of this encounter
--- OUTSIDE RECORDS SUMMARY | 2022-05-15 22:34 | XMS_ITS | Encounter Summary ---
:1955 Author Organization [place] Address [address] [place] [address] Care Team Providers Name Role Phone Froylan Louise MD Primary Care Provider Unavailable Froylan Louise MD Unavailable Unavailable Froylan Louise MD Unavailable Unavailable Encounter Details Date Type Department Care Team Description 05/25/2017 Orders Only [facility] Hyp erlipidemia LDL goal <160; [facility] Elevated fasting glucose; [address] [facility] Other ulcerative colitis wit hout complication (H) [place] [address] Social History Tobacco Use [...] or more times a w [place] 05/25/2021 alcohol? How many drinks containing alcohol [...] you attend yazdanism or Patient refused 2020 judaism services? Do [...] Name Priority Date/Time Associated Diagnosis Comme nts LIPID REFLEX TO Routine 05/25/2017 8:10 Hyperlipidemia LDL Res ults for this DIRECT LDL PANEL AM GLOBAL PRESIDENT goal <160 procedure a re in the results section. HEMOGLOBIN A1C Routine 05/25/2017 8:10 Elevated fasting Result s for this AM GLOBAL PRESIDENT glucose procedure are i n the results section. COMPREHENSIVE Routine 05/25/2017 8:10 Other ulcerative Results for this METABOLIC PANEL AM GLOBAL PRESIDENT colitis without procedure are in complication (H) the results section. CBC WITH PLATELETS Routine 05/25/2017 8:10 Other ulcerative Re sults for this AM GLOBAL PRESIDENT colitis without procedure ar e in complication (H) the results section. documented in this encounter Results CBC with platelets (05/25/2017 8:10 AM GLOBAL PRESIDENT) athologist Signature WBC 7.5 4.0 - 11.0 05/26/2017 [facility] 10e9/L 11:23 AM [facility] RBC Count 4.86 4.4 - 5.9 05/26/2017 [facility] 10e12/L 11:23 AM [facility] Hemoglobin 14.6 13.3 - 05/26/2017 [facility] 17.7 g/dL 11:23 AM [facility] Hematocrit 45.4 40.0 - 05/26/2017 [facility] 53.0 % 11:23 AM [facility] MCV 93 78 - 100 05/26/2017 [facility] fl 11:23 AM [facility] MCH 30.0 26.5 - 05/26/2017 [facility] 33.0 pg 11:23 AM [facility] MCHC 32.2 31.5 - 05/26/2017 [facility] 36.5 g/dL 11:23 AM [facility] RDW 13.7 10.0 - 05/26/2017 [facility] 15.0 % 11:23 AM [facility] Platelet Count 213 150 - 450 05/26/2017 [facility] 10e9/L 11:23 AM [facility] Specimen Anatomical Collection Method Collection Time Receive d Time (Source) Location / / Volume Laterality Blood specimen 05/25/2017 8:10 AM 017 (specimen) GLOBAL PRESIDENT 10:54 AM GLOBAL PRESIDENT Froylan Louise MD LAB - BLOOD ORDERABLES Performing Organization Address City/State/ZIP Code Phon e Number [facility] [id number] [place] [address] Comprehensive metabolic panel (05/25/2017 8:10 AM GLOBAL PRESIDENT) P athologist Signature Sodium 140 133 - 144 05/26/2017 [facility] mmol/L 4:44 PM [facility] Potassium 4.5 3.4 - 5.3 05/26/2017 [facility] mmol/L 4:44 PM [facility] Chloride 107 94 - 109 05/26/2017 [facility] mmol/L 4:44 PM [facility] Carbon Dioxide 24 20 - 32 05/26/2017 [place] mmol/L 4:44 PM [facility] Anion Gap 9 3 - 14 05/26/2017 [place] mmol/L 4:44 PM [facility] Glucose 97 70 - 99 05/26/2017 [place] mg/dL 4:44 PM [facility] Urea Nitrogen 16 7 - 30 05/26/2017 [facility] mg/dL 4:44 PM [facility] Creatinine 0.91 0.66 - 05/26/2017 [facility] 1.25 mg/dL 4:44 PM [facility] GFR Estimate 86 >60 05/26/2017 [place] mL/min/1.7 4:[address] Comment: Non GFR Calc GFR Estimate If >90 >60 mL/min/1.7m2 05/26/2017 4:44 P M [facility] Black [facility] Comment: GFR Calc Calcium 9.0 8.5 - 10.1 05/26/2017 4:44 PM [facility] mg/dL [facility] Bilirubin Total 1.2 0.2 - 1.3 mg/dL 05/26/2017 4:44 PM [facility] Albumin 3.4 3.4 - 5.0 g/dL 05/26/2017 4:44 PM [facility] Protein Total 7.2 6.8 - 8.8 g/dL 05/26/2017 4:44 PM [facility] Alkaline Phosphatase 91 40 - 150 U/L 05/26/2017 4:44 PM [facility] ALT 27 0 - 70 U/L 05/26/2017 4:44 PM [facility] AST 17 0 - 45 U/L 05/26/2017 4:44 PM [facility] Specimen Anatomical Collection Method Collection Time Receive d Time (Source) Location / / Volume Laterality Blood specimen 05/25/2017 8:10 AM 017 (specimen) GLOBAL PRESIDENT 10:54 AM GLOBAL PRESIDENT Froylan Louise MD LAB - BLOOD ORDERABLES Performing Organization Address City/[facility]/ZIP Code Phon e Number [facility] [address] [place] [address] Hemoglobin A1c (05/25/2017 8:10 AM GLOBAL PRESIDENT) athologist Signature Hemoglobin A1C 5.8 4.3 - 6.0 05/26/2017 [facility] % 11:12 AM [facility] Specimen Anatomical Collection Method Collection Time Receive d Time (Source) Location / / Volume Laterality Blood specimen 05/25/2017 8:10 AM 017 (specimen) GLOBAL PRESIDENT 10:54 AM GLOBAL PRESIDENT Froylan Louise MD LAB - BLOOD ORDERABLES Performing Organization Address City/[facility]/ZIP Code Phon e Number [facility] [id number] [place] [address] Lipid panel reflex to direct LDL Fasting (05/25/2017 8:10 AM GLOBAL PRESIDENT) [facility] gist Method Time Signature Cholesterol 166 <200 05/26/2017 [facility] mg/dL 4:44 PM [facility] Triglycerides 109 <150 05/26/2017 [facility] mg/dL 4:44 PM [facility] HDL Cholesterol 52 >39 mg/dL 05/26/2017 [facility] 4:44 PM [facility] LDL Cholesterol 92 <100 05/26/2017 [facility] Calculated mg/dL 4:44 PM [facility] Comment: Desirable: <100 mg/dl Non HDL Cholesterol 114 <130 mg/dL 05/26/2017 4:[address] [facility] Specimen Anatomical Collection Method Collection Time Receive d Time (Source) Location / / Volume Laterality Blood specimen 05/25/2017 8:10 AM 017 (specimen) GLOBAL PRESIDENT 10:54 AM GLOBAL PRESIDENT Froylan Louise MD LAB - BLOOD ORDERABLES Performing Organization Address City/State/ZIP Code Phon e Number [facility] [address] [place] [address] documented in this encounter Visit Diagnoses Diagnosis Hyperlipidemia LDL goal <160 Other and unspecified hyperlipidemia Elevated fasting glucose Impaired fasting glucose Other ulcerative colitis without complic ation (H) documented in this encounter Care Teams Aluminum Container Tester Relationship Specialty Start Date End Date Froylan Louise MD PCP - General Family Practice 02/22/14 Froylan Louise MD PCP - Assigned PCP 03/13/14 08/25/18 Froylan Louise MD Assigned PCP 03/13/14 2 documented as of this encounter
--- OUTSIDE RECORDS SUMMARY | 2022-05-15 22:34 | XMS_ITS | Encounter Summary ---
:1955 Author Organization [place] Address [address] [place] [address] Care Team Providers Name Role Phone Froylan Louise MD Primary Care Provider Unavailable Froylan Louise MD Unavailable Unavailable Froylan Louise MD Unavailable Unavailable Reason for Visit Reason Comments Medication Refill Encounter Details Date Type Department Care Team Description 09/23/2016 Refill [facility] Froylan Louise Ra, MD Medication Refill [address] [address] Social History Tobacco Use [...] you attend buddhism or Patient refused 2020 worship services? Do [...] Telephone Encounter - Wendi Lindsay RN - 09/23/2016 4:40 PM CDT Prescription approved per [facility] Refill Protocol. Wendi Lindsay RN, BSN Telephone Encounter - Irma Dunaway - 09/23/2016 4:02 PM CDT Pending Prescriptions: Disp Refills triamcinolone (KENALOG) 0.1 % cream [Phar*30 g 1 Sig: APPLY TOPICALLY TWICE DAILY Last Written Prescription Date: 08/31/2015 Last Fill Quantity: 30 g, # refills: 3 Last Office Visit with [facility], [facility] or Health prescribing provider: 05/31/2016 Future Office visit: Routing refill request to provider for review/approval because: Drug not on the [facility], [facility] or Health refill protocol or controlled substance Irma Dunaway Instrument And Controls Technician documented in this encounter Plan of Treatment Upcoming Encounters Date Type Specialty Care Team Description 05/20/2022 Lab Lab documented as of this encounter Visit Diagnoses Diagnosis Lichen planus documented in this encounter Care Teams Farm Loan Inspector Relationship Specialty Start Date End Date Froylan Louise MD PCP - General Family Practice 02/22/14 Froylan Louise MD PCP - Assigned PCP 03/13/14 08/25/18 Froylan Louise MD Assigned PCP 03/13/14 2 documented as of this encounter
--- OUTSIDE RECORDS SUMMARY | 2022-05-15 22:34 | XMS_ITS | Encounter Summary ---
:1955 Author Organization [place] Address [address] [place] [address] Care Team Providers Name Role Phone Froylan Louise MD Primary Care Provider Unavailable Froylan Louise MD Unavailable Unavailable Froylan Louise MD Unavailable Unavailable Reason for Visit Reason Onset Date Comments CT Results 06/26/2017 Encounter Details Date Type Department Care Team Description 06/26/2017 Telephone [facility] Froylan Louise Ra, MD CT Results [address] [address] Social History Tobacco Use [...] you attend quaker or Patient refused 2020 quaker services? Do [...] Encounter - Page, Esthela Conrad RN - 06/26/2017 9:16 AM CST Per PCP brief writer called to Dr. Suaoz at [facility]. They will contact pt to schedule appt. CT results have been faxed. Esthela Corea RN S REPRESENTATIVE [facility] documented in this encounter Plan of Treatment Upcoming Encounters Date Type Specialty Care Team Description 05/20/2022 Lab Lab documented as of this encounter Visit Diagnoses Not on filedocumented in this encounter Care Teams Teacher Of The Emotionally Disturbed Relationship Specialty Start Date End Date Froylan Louise MD PCP - General Family Practice 02/22/14 Froylan Louise MD PCP - Assigned PCP 03/13/14 08/25/18 Froylan Louise MD Assigned PCP 03/13/14 2 documented as of this encounter
--- OUTSIDE RECORDS SUMMARY | 2022-05-15 22:34 | XMS_ITS | Encounter Summary ---
:1955 Author Organization [place] Address [address] [place] [address] Care Team Providers Name Role Phone Froylan Louise MD Primary Care Provider Unavailable Froylan Louise MD Unavailable Unavailable Froylan Louise MD Unavailable Unavailable Reason for Visit Reason Comments Medication Refill zolpidem Encounter Details Date Type Department Care Team Description 01/27/2017 Refill [facility] Froylan Louise Ra, Medication Refill Chhaya VILLASEÑOR (zolpidem) [address] [place] [address] Social History Tobacco Use [...] containing 4 or more times a w [place] 05/25/2021 alcohol? How many drinks containing alcohol [...] you attend temple or Patient refused 2020 baptist services? Do [...] Notes Telephone Encounter - Irma Dunaway - 01/29/2017 12:42 PM CDT rx [facility] Irma Dunaway Care Management Associate Telephone Encounter - Froylan Louise MD - 01/28/2017 12:22 PM CDT Refilled. Telephone Encounter - Esthela Corea RN - 01/28/2017 9:51 AM CDT RX monitoring program ([place]) reviewed: SOFTWARE LICENSING EXECUTIVE reviewed- no concerns Last fill 11/10 [place] profile: [email or web address] Esthela Corea RN Telephone Encounter - Carlos Alberto Black - 01/28/2017 7:22 AM CDT Pending Prescriptions: Disp Refills zolpidem (AMBIEN CR) 12.5 MG CR tablet [P*30 tab* Sig: TAKE ONE TABLET BY MOUTH NIGHTLY NEEDED FOR SLEEP Controlled Substance Refill Request for Problem List Complete: No PROVIDER TO CONSIDER COMPLETION OF PROBLEM LIST AND OVERVIEW/CONTROLLED SUBSTANCE AGREEMENT Last Written Prescription Date: 05/31/2016 Last Fill Quantity: 30, # refills: 2 Last Office Visit with [facility] primary care provider: 05/31/2016 Future Office visit: Controlled substance agreement on file: No. Processing: Fax Rx to [facility] pharmacy SOFTWARE LICENSING EXECUTIVE checked in past 6 months? No, route to CINDY Black XRT documented in this encounter Plan of Treatment Upcoming Encounters Date Type Specialty Care Team Description 05/20/2022 Lab Lab documented as of this encounter Visit Diagnoses Diagnosis Insomnia, unspecified type documented in this encounter Care Teams Service Dispatcher Relationship Specialty Start Date End Date Froylan Louise MD PCP - General Family Practice 02/22/14 Froylan Louise MD PCP - Assigned PCP 03/13/14 08/25/18 Froylan Louise MD Assigned PCP 03/13/14 2 documented as of this encounter
--- OUTSIDE RECORDS SUMMARY | 2022-05-15 22:34 | XMS_ITS | Encounter Summary ---
:1955 Author Organization [facility] Address [address] [place] [address] Care Team Providers Name Role Phone Froylan Louise MD Primary Care Provider Unavailable Froylan Louise MD Unavailable Unavailable Froylan Louise MD Unavailable Unavailable Reason for Visit Reason Onset Date Comments Orders 05/26/2017 Encounter Details Date Type Department Care Team Description 05/26/2017 Telephone [facility] Froylan Louise Ra, MD Orders [facility] [address] [place] [address] Social History Tobacco Use [...] containing 4 or more times a w [place] 05/25/2021 alcohol? How many drinks containing alcohol [...] you attend anabaptist or Patient refused 2020 evangelical services? Do [...] encounter Miscellaneous Notes Telephone Encounter - Monica Patrick - 05/26/2017 9:03 AM CST Lab needs future orders placed please. Blood was drawn 05/24/17 fasting. No urine was collected. Thank you, Monica OR ENERGY CONSULTANT documented in this encounter Plan of Treatment Upcoming Encounters Date Type Specialty Care Team Description 05/20/2022 Lab Lab documented as of this encounter Results CBC with platelets (05/25/2017 8:10 AM SENIOR ENERGY CONSULTANT) athologist Signature WBC 7.5 4.0 - 11.0 05/26/2017 [facility] 10e9/L 11:23 AM [facility] RBC Count 4.86 4.4 - 5.9 05/26/2017 [facility] 10e12/L 11:23 AM [facility] Hemoglobin 14.6 13.3 - 05/26/2017 [facility] 17.7 g/dL 11:23 AM [facility] Hematocrit 45.4 40.0 - 05/26/2017 [facility] 53.0 % 11:23 AM [facility] MCV 93 78 - 100 05/26/2017 [facility] fl 11:23 AM [facility] MCH 30.0 26.5 - 05/26/2017 [facility] 33.0 pg 11:23 AM [facility] MCHC 32.2 31.5 - 05/26/2017 [facility] 36.5 g/dL 11:23 AM [facility] RDW 13.7 10.0 - 05/26/2017 [facility] 15.0 % 11:23 AM [facility] Platelet Count 213 150 - 450 05/26/2017 [facility] 10e9/L 11:23 AM [facility] Specimen Anatomical Collection Method Collection Time Receive d Time (Source) Location / / Volume Laterality Blood specimen 05/25/2017 8:10 AM 017 (specimen) SENIOR ENERGY CONSULTANT 10:54 AM SENIOR ENERGY CONSULTANT Froylan Louise MD LAB - BLOOD ORDERABLES Performing Organization Address City/State/ZIP Code Phon e Number [facility] [id number] [place] [address] Comprehensive metabolic panel (05/25/2017 8:10 AM SENIOR ENERGY CONSULTANT) athologist Signature Sodium 140 133 - 144 05/26/2017 [facility] mmol/L 4:44 PM [facility] Potassium 4.5 3.4 - 5.3 05/26/2017 [facility] mmol/L 4:44 PM [facility] Chloride 107 94 - 109 05/26/2017 [facility] mmol/L 4:44 PM [facility] Carbon Dioxide 24 20 - 32 05/26/2017 [facility] mmol/L 4:44 PM [facility] Anion Gap 9 3 - 14 05/26/2017 [facility] mmol/L 4:44 PM [facility] Glucose 97 70 - 99 05/26/2017 [facility] mg/dL 4:44 PM [facility] Urea Nitrogen 16 7 - 30 05/26/2017 [facility] mg/dL 4:44 PM [facility] Creatinine 0.91 0.66 - 05/26/2017 [facility] 1.25 mg/dL 4:44 PM [facility] GFR Estimate 86 >60 05/26/2017 [facility] mL/min/1.7 4:[address] Comment: Non GFR Calc GFR Estimate If >90 >60 mL/min/1.7m2 05/26/2017 4:44 P M [facility] Black [facility] Comment: GFR Calc Calcium 9.0 8.5 - 10.1 05/26/2017 4:44 PM [facility] mg/dL [facility] Bilirubin Total 1.2 0.2 - 1.3 mg/dL 05/26/2017 4:44 PM [facility] Albumin 3.4 3.4 - 5.0 g/dL 05/26/2017 4:44 PM [facility] Protein Total 7.2 6.8 - 8.8 g/dL 05/26/2017 4:44 PM [facility] Alkaline Phosphatase 91 40 - 150 U/L 05/26/2017 4:44 PM [facility] ALT 27 0 - 70 U/L 05/26/2017 4:44 PM [facility] AST 17 0 - 45 U/L 05/26/2017 4:44 PM [place] [facility] SENIOR ENERGY CONSULTANT [facility] Specimen Anatomical Collection Method Collection Time Receive d Time (Source) Location / / Volume Laterality Blood specimen 05/25/2017 8:10 AM 017 (specimen) SENIOR ENERGY CONSULTANT 10:54 AM SENIOR ENERGY CONSULTANT Froylan Louise MD LAB - BLOOD ORDERABLES Performing Organization Address City/[facility]/ZIP Code Phon e Number [facility] [address] [place] [address] Hemoglobin A1c (05/25/2017 8:10 AM SENIOR ENERGY CONSULTANT) athologist Signature Hemoglobin A1C 5.8 4.3 - 6.0 05/26/2017 [facility] % 11:12 AM [facility] Specimen Anatomical Collection Method Collection Time Receive d Time (Source) Location / / Volume Laterality Blood specimen 05/25/2017 8:10 AM 017 (specimen) SENIOR ENERGY CONSULTANT 10:54 AM SENIOR ENERGY CONSULTANT Froylan Louise MD LAB - BLOOD ORDERABLES Performing Organization Address City/[facility]/ZIP Code Phon e Number [facility] [id number] [place] [address] Lipid panel reflex to direct LDL Fasting (05/25/2017 8:10 AM SENIOR ENERGY CONSULTANT) [facility] Method Time Signature Cholesterol 166 <200 05/26/2017 [facility] mg/dL 4:44 PM SENIOR ENERGY CONSULTANT [facility] Triglycerides 109 <150 05/26/2017 [facility] mg/dL 4:44 PM [facility] HDL Cholesterol 52 >39 mg/dL 05/26/2017 [facility] 4:44 PM [facility] LDL Cholesterol 92 <100 05/26/2017 [facility] Calculated mg/dL 4:44 PM [facility] Comment: Desirable: <100 mg/dl Non HDL Cholesterol 114 <130 mg/dL 05/26/2017 4:44 PM SENIOR ENERGY CONSULTANT [facility] Specimen Anatomical Collection Method Collection Time Receive d Time (Source) Location / / Volume Laterality Blood specimen 05/25/2017 8:10 AM 017 (specimen) SENIOR ENERGY CONSULTANT 10:54 AM SENIOR ENERGY CONSULTANT Froylan Louise MD LAB - BLOOD ORDERABLES Performing Organization Address City/State/ZIP Code Phon e Number [facility] [address] [place] [address] documented in this encounter Visit Diagnoses Diagnosis Other ulcerative colitis without complic ation (H) - Primary Elevated fasting glucose Impaired fasting glucose Hyperlipidemia LDL goal <160 Other and unspecified hyperlipidemia documented in this encounter Care Teams Tier Lift Truck Operator Relationship Specialty Start Date End Date Froylan Louise MD PCP - General Family Practice 02/22/14 Froylan Louise MD PCP - Assigned PCP 03/13/14 08/25/18 Froylan Louise MD Assigned PCP 03/13/14 2 documented as of this encounter
--- OUTSIDE RECORDS SUMMARY | 2022-05-15 22:34 | XMS_ITS | Encounter Summary ---
:1955 Author Organization [place] Address [facility] [place] [address] Care Team Providers Name Role Phone Froylan Louise MD Primary Care Provider Unavailable Froylan Louise MD Unavailable Unavailable Froylan Louise MD Unavailable Unavailable Reason for Visit Auth/Cert Specialty Diagnoses / Procedures Referred By Contact Refer red To Contact Gastroenterology Diagnoses Ulcerative Colitis Rh Endoscopy Procedures POUCHOSCOPY [address] [place] [address] Phone: Fax: Referral ID Status Reason Start Date Expiration Date Visits Requ ested Visits Authorized [id number] 1 1 Encounter Details Date Type Department Care Team Description 06/20/2017 Surgery [facility] Endoscopy Chase Rutherford MD POUCHOSCOPY [facility] [address] [place] [address] [address] [place] [address] (Wo rk) Surgery Details Date/Time Status Location OR Service Patient Class Case Case Trauma Class Type Case? 06/20/17 Posted GI GI C [place] Outpatient 10:25 AM Panel 1 Procedure [facility] Anes Op Region Wound Class Commen ts POUCHOSCOPY N/A Conscious Sedation Rectum II-Clean POUCH OSCOPY Contaminated Surgeon Surgeon Role Service Panel Chase Suazo MD Primary [place]-Rectal 1 Special Needs Needs flex Sig scope documented in this encounter Social History Tobacco [...] you attend judaism or Patient refused 2020 latter-day services? Do [...] Sign Reading Time Taken Comments Blood Pressure 113/82 06/20/2017 11:30 AM RESPIRATORY THERAPY MANAGER Pulse - - Temperature - - Respiratory Rate 16 06/20/2017 11:30 AM RESPIRATORY THERAPY MANAGER Oxygen Saturation 96% 06/20/2017 11:30 AM RESPIRATORY THERAPY MANAGER Inhaled Oxygen Concentration - - Weight 106.1 kg (234 lb) 06/20/2017 10:29 AM RESPIRATORY THERAPY MANAGER Height 179.1 cm (5' 10.5) 06/20/2017 10:29 AM RESPIRATORY THERAPY MANAGER Body Mass Index 33.1 06/20/2017 10:29 AM RESPIRATORY THERAPY MANAGER documented in this encounter Discharge Instructions Discharge InstructionsLalitha Molina RN - 06/20/2017 11:10 AM CST POST -PROCEDURE DISCHARGE INSTRUCTIONS COLONOSCOPY You may not drive, use heavy equipment, or consume alcohol for 24 hours because the drugs you were given may cause dizziness, drowsiness, forgetfulness and slower reaction time. *You may resume your regular diet and medications. *If you had biopsies or polypectomy do not take aspirin, aleve or ibuprofen products for the next 10days. Tylenol is safe. Additional Instructions. What to watch for Problems rarely occur after the exam. It is important for you to be aware of the early signs of a possible complication. Call immediately if you notice any of the following. 1. Unusual or persistent abdominal pain ( pain that does not move around like a gas pain). 2.Passing bright red blood from your rectum. 3. Black or bloody stools. 4.Temperature above 100.6 degrees F (37.5 degree C) If you feel this has become a medical emergency please call 911. Responsible Adults Signature: Relationship to Patient: Nurses Signature: IRATORY THERAPY MANAGER documented in this encounter Medications at Time of Discharge Medication Sig Dispensed Refills Start Date End Date amoxicillin-clavulanate Take 1 tablet by 14 tablet 0 201707/02/2017 (AUGMENTIN) 875-125 MG mouth 2 times daily per tabletIndications: for 7 days Anal fistula albuterol (PROAIR Inhale 2 puffs into 3 [...] Associated Comments Diagnosis PROVGI - PROVATION Routine 06/20/2017 10:40 AM Re sults for this GI EXAM RESPIRATORY THERAPY MANAGER procedure are i n the results section. ENDOSCOPY, POUCH, 06/20/2017 10:33 AM Ulcerative Colit is DIAGNOSTIC RESPIRATORY THERAPY MANAGER Special Needs Needs flex Sig scope documented in this encounter Results PROVGI - PROVATION GI EXAM (06/20/2017 10:40 AM RESPIRATORY THERAPY MANAGER) [facility] gist Method Time Signature PROVGI [facility] RADIO LOGY RESULTS Patient Name: Virgil Christine ? Procedure Date: 06/20/2017 10:40 AM ? Accou nt Number: [id number] Date of : 1955 ?Admit Type: Out patient Age: 61 ? Gender: Male Attending MD: Chase Suazo MD ?Total Sedation Time: Instrument Name: 138 ? Procedure: ?Pouchoscopy Indications: ?History of total proctocolectomy, h/o ulcerative ?colitis Providers: ?Chase Suazo MD (Docto r) Referring MD: ? Froylan Louise MD (Referrenée rosa MD) Medicines: ?Midazolam 3 mg IV, Fentanyl 200 micrograms IV Complications: ?No immediate complications. Procedure: ?Pre-Anesthesia Assessment: [...] ?oxygen saturations were monitored continuously. The ?Olympus Peds Colonoscope Model #PCF-H190L, ?[place]#138, SN#[id number] was introduced through the ?ileoanal anastomosis via the anus and advanced to ?the ileoanal pouch and into the kandace- terminal ileum. ?The procedure was performed without difficulty. The ?patient tolerated the procedure well. The quality ?of the bowel preparation was adequate to identify ?polyps 6 mm and large r in size. ? Findings: ? The perianal examination was normal. ? The digital rectal ex am findings include palpable anastomosis just above ? the anus. Pertinent negatives include normal sphincte r tone. ? The kandace-terminal ileum appeared normal. ? The ileoanal pouch appeared normal. ? Impression: ? - Palpable anastomosis just above the anus found on ?digital rectal exam. ?- The examined portion of the ileum was normal. ?- The ileoanal pouch is normal. ?- No specimens collec ilana. Recommendation: ? - Repeat post-nelli gical lower GI endoscopy in 2 ?years for surveillanc e. ? Procedure Code(s): ? --- Professional --- ? 54048, Endoscopic evaluation of s mall intestinal pouch (eg, Kock pouch, ? ileal reservoir [S or J]); diagnostic, including kashmir ection of ? specimen(s) by brushing or washin g, when performed (separate procedure) Diagnosis Code(s): ? --- Professional --- ? Z90.49, Acquired absence of other specified parts o f digestive tract CPT copyright 2016 [employer]. All rights reserved. The codes documented in this report are prelimin dillon and upon insurance coder review may be revised to meet current compliance requirements. Chase Suazo MD 06/20/2017 10:58:50 AM I was physically present for the entire viewing portion of t he exam. Chase Suazo MD Number of Addenda: 0 Note Initiated On: 06/20/2017 10:40 AM MRN: ?[id number] Procedure Date: ? 06/20/2017 10:40:57 AM Total Procedure Duration: 0 hours 7 minutes 0 seconds Estimated Blood Loss: ? Scope In: 10:45:47 AM Scope Out: 10:52:47 AM Specimen (Source) Anatomical Collection Method Collection Time Re ceived Time Location / / Volume Laterality 06/20/2017 10:40 AM RESPIRATORY THERAPY MANAGER Froylan Louise MD PROCEDURES Performing Organization Address City/State/ZIP Code Phon e Number RADIOLOGY RESULTS documented in this encounter Visit Diagnoses Not on filedocumented in this encounter Administered Medications Inactive Administered Medications - up to 3 most recent administrations Medication Order MAR Action Action Date Dose Rate Site diphenhydrAMINE (BENADRYL) capsule 25 mg 25 mg, Oral, EVERY 4 HOURS PRN, itching, Starting on F 06/20/17 at 1111, Post-procedure diphenhydrAMINE (BENADRYL) injection 25 mg 25 mg, Intravenous, EVERY 4 HOURS PRN, itching, Admini ster over 1-2 Minutes, Starting on Fri06/20/17 at 1111, Use on ly if patient cannot take oral. For ordered doses up to 50 mg, give IV Push undiluted. Give each 2 5mg over a minimum of 1 minute. Extend in non-emergency, Post-procedure fentaNYL (PF) (SUBLIMAZE) injection Given 06/20/2017 10:46 AM RESPIRATORY THERAPY MANAGER 100 mcg PRN, Administer over 3-5 Minutes, Starting on Fri06/20/17 at 1041, Intra-procedure Given 06/20/2017 10:41 AM RESPIRATORY THERAPY MANAGER 100 mcg midazolam (VERSED) injection Given 06/20/2017 10:46 AM RESPIRATORY THERAPY MANAGER 1 mg Administer over 2 Minutes, PRN, Starting on Fri06/20/17 at 1041, Intra-procedure Given 06/20/2017 10:41 AM RESPIRATORY THERAPY MANAGER 2 mg ondansetron (ZOFRAN) injection 4 mg 4 mg, Intravenous, EVERY 6 HOURS PRN, nausea, vomiting , Administer over 2-5 Minutes, Starting on Fri06/20/17 at 111 1, This is Step 1 of nausea and vomiting management. If nausea not resolved in 15 minutes, go t o Step 2 prochlorperazine (COMPAZINE). Irritant. For ordered doses up to 4 mg, give IV Push undiluted over 2-5 minutes., Post-procedure ondansetron (ZOFRAN-ODT) ODT tab 4 mg 4 mg, Oral, EVERY 6 HOURS PRN, nausea, v omiting, Starting on Fri06/20/17 at 1111, This is Step 1 of nausea and vomiting management. If n ausea not resolved in 15 minutes, go to Step 2 prochlorperazine (COMPAZINE). Do not push through foil backing. Peel back foil and gently remove. Place on to ngue immediately. Administration with liquid unnecessary, Post-procedure prochlorperazine (COMPAZINE) injection 1 0 mg 10 mg, Intravenous, EVERY 6 HOURS PRN, nausea, vomitin g, Administer over 1-2 Minutes, Starting on Fri06/20/17 at 111 1, This is Step 2 of nausea and vomiting management. If nausea not resolved in 15 minutes, give metoclopramide (REGLAN), if ordered (step 3 of nausea and vomiting m anagement) For ordered doses up to 10 mg, give IV Push undiluted. Each 5mg over 1 minute., Post- procedure prochlorperazine (COMPAZINE) tablet 10 m g 10 mg, Oral, EVERY 6 HOURS PRN, nausea, vomiting, Starting on Fri06/20/17 at 1111, This is Step 2 of nausea and vomiting management. If n ausea not resolved in 15 minutes, give metoclopramide (REGLAN), i f ordered (step 3 of nausea and vomiting management), Post-procedure documented in this encounter Active and Recently Administered Medications Times are shown in RESPIRATORY THERAPY MANAGER. Scheduled Medication Order 06/18/2017 06/19/2017 06/20/2017 0.9% sodium chloride BOLUS 1115 (Canceled Entry - Provider: Orders Generic Provider - Comment: Automatically canceled at discontinue of medication order) Intravenous, 250 mL, ONCE, at 250 mL/hr, Administer over 1 Hours, Fri06/20/17 at 1115, For 1 dose, If systolic blood pressure less than 100 or patient has a headache, Post-procedure PRN Medication Order 06/18/2017 06/19/2017 06/20/2017 diphenhydrAMINE (BENADRYL) capsule 25 mg(Linked Group 1) 25 mg, Oral, EVERY 4 HOURS PRN, itching, Starting Fri06/20/17 at 1111, Post-procedure diphenhydrAMINE (BENADRYL) injection 25 mg(Linked Group 1) 25 mg, Intravenous, EVERY 4 HOURS PRN, i tching, Administer over 1-2 Minutes, Starting Fri06/20/17 at 1111, Use only if patient cannot take oral. For ordered doses up to 50 mg, give IV Push undiluted. G chari each 25mg over a minimum of 1 minute . Extend in non-emergency, Post-procedure fentaNYL (PF) (SUBLIMAZE) injection 1041 (Given - Provider: Barry Hicks RN - Comment: VORB)1046 (Given - Provider: Barry Hicks RN - Comment: VORB) Administer over 3-5 Minutes, PRN, Starti ng Fri 12/29/17 at 1041, Intra-procedure flumazenil (ROMAZICON) injection 0.2 mg 0.2 mg, Intravenous, EVERY 1 MIN PRN, be nzodiazepine reversal, over sedation, Administer over 1 Minutes, Starting Fri06/20/17 at 1111, For 12 hours, Give over 15 seconds. If inadequate response after 4 5 seconds, may repeat up to a MAX total dose of 1 mg. Continue monitoring until discharge criteria are met for a minimum of 2 hours Irritant. For ordered doses up to 1 mg, give IV Push undiluted. Administer each 0.2mg over 15 seconds., Post-procedure May continue current IV fluid if patient has IV fluids infusing until discharge. CONTINUOUS PRN, Starting Fri06/20/17 at 1111, Until Fri06/20/17 at 1400, Post-procedure midazolam (VERSED) injection 104 1 (Given - Provider: Barry Hicks RN - Comment: MICHELL)1046 (Given - Provider: Barry Hicks RN - Comment: MICHELL) Administer over 2 Minutes, PRN, Starting Fri06/20/17 at 104 1, Intra-procedure naloxone (NARCAN) injection 0.1-0.4 mg 0.1-0.4 mg, Intravenous, EVERY 2 MIN PRN , opioid reversal, Starting Fri06/20/17 at 1111, For 24 hours, For apnea or imminent respiratory arrest: give 0.4 mg IV undiluted Q 2 minutes PRN until desired d egree of reversal is obtained, stop opio id and notify provider. Continue monitoring until discharge criteria are met for a minimum of 2 hours. For severe sedation, decrease in respiratory depth, quality or Respiratory Rate less than 8: give 0 .1 mg IV Q 2 minutes x 3 doses, stop opioid and notify provider. Try to minimize reversal of analgesia especially in end-of-life patients. Continue monitoring unt il discharge criteria are met for a mini mum of 2 hours For ordered doses up to 2mg give IVP. Give each 0.4mg over 15 seconds in emergency situations. For non- emergent situations further dilute in 9mL of NS to facilitate titration of response., Post-procedure ondansetron (ZOFRAN) injection 4 mg(Linked Group 2) 4 mg, Intravenous, EVERY 6 HOURS PRN, na usea, vomiting, Administer over 2-5 Minutes, Starting Fri06/20/17 at 1111, This is Step 1 of nausea and vomiting management. If nausea not resolved in 15 minutes , go to Step 2 prochlorperazine (COMPAZI NE). Irritant. For ordered doses up to 4 mg, give IV Push undiluted over 2-5 minutes., Post-procedure ondansetron (ZOFRAN-ODT) ODT tab 4 mg(Linked Group 2) 4 mg, Oral, EVERY 6 HOURS PRN, nausea, v omiting, Starting Fri06/20/17 at 1111, This is Step 1 of nausea and vomiting management. If nausea not resolved in 15 minutes, go to Step 2 prochlorperazine (COM PAZINE). Do not push through foil backin g. Peel back foil and gently remove. Place on tongue immediately. Administration with liquid unnecessary, Post-procedure prochlorperazine (COMPAZINE) injection 10 mg(Linked Group 3) 10 mg, Intravenous, EVERY 6 HOURS PRN, n ausea, vomiting, Administer over 1-2 Minutes, Starting Fri06/20/17 at 1111, This is Step 2 of nausea and vomiting management. If nausea not resolved in 15 minute s, give metoclopramide (REGLAN), if orde red (step 3 of nausea and vomiting management) For ordered doses up to 10 mg, give IV Push undiluted. Each 5mg over 1 minute., Post-procedure prochlorperazine (COMPAZINE) tablet 10 mg(Linked Group 3) 10 mg, Oral, EVERY 6 HOURS PRN, nausea, vomiting, Starting Fri06/20/17 at 1111, This is Step 2 of nausea and vomiting management. If nausea not resolved in 15 minutes, give metoclopramide (REGLAN), if ordered (step 3 of nausea and vomiting management), Post-procedu re sodium chloride (PF) 0.9% PF flush 3 mL 3 mL, Intravenous, EVERY 1 MIN PRN, line flush, after medication administration. For peripheral IV flush post IV meds, Starting Fri06/20/17 at 1111, Post-procedure Linked Groups Order Group 1: diphenhydrAMINE (BENADRYL) injection 25 mgJump to med 25 mg, Intravenous, EVERY 4 HOURS PRN, i tching, Administer over 1-2 Minutes, Starting Fri06/20/17 at 1111
Use only if patient cannot take oral. For ordered doses up to 50 mg, give IV Push undiluted. Give each 25mg over a mi nimum of 1 minute. Extend in non-emergency
Post-procedure Or diphenhydrAMINE (BENADRYL) capsule 25 mgJump to med 25 mg, Oral, EVERY 4 HOURS PRN, itching, Starting Fri06/20/17 at 1111, Post-procedure Group 2: ondansetron (ZOFRAN-ODT) ODT tab 4 mgJump to med 4 mg, Oral, EVERY 6 HOURS PRN, nausea, v omiting, Starting Fri06/20/17 at 1111
This is Step 1 of nausea and vomiting management. If nausea not resolved in 15 minutes, go to S tep 2 prochlorperazine (COMPAZINE). Do n ot push through foil backing. Peel back foil and gently remove. Place on tongue immediately. Administration with liquid unnecessary
Post-procedure Or ondansetron (ZOFRAN) injection 4 mgJump to med 4 mg, Intravenous, EVERY 6 HOURS PRN, na usea, vomiting, Administer over 2-5 Minutes, Starting Fri06/20/17 at 1111
This is Step 1 of nausea and vomiting management. If nausea not resolved in 15 minutes, go to Step 2 prochlorperazine (COMPAZINE). Irritant. For ordered doses up to 4 mg, give IV Push undiluted over 2-5 minutes.
Post-procedure Group 3: prochlorperazine (COMPAZINE) injection 10 mgJump to med 10 mg, Intravenous, EVERY 6 HOURS PRN, n ausea, vomiting, Administer over 1-2 Minutes, Starting Fri06/20/17 at 1111
This is Step 2 of nausea and vomiting management. If nausea not res olved in 15 minutes, give metoclopramide (REGLAN), if ordered (step 3 of nausea and vomiting management) For ordered doses up to 10 mg, give IV Push undiluted. Each 5mg over 1 minute.
Post-procedure Or prochlorperazine (COMPAZINE) tablet 10 mgJump to med 10 mg, Oral, EVERY 6 HOURS PRN, nausea, vomiting, Starting Fri06/20/17 at 1111
This is Step 2 of nausea and vomiting management. If nausea not resolved in 15 minutes, give metoclopra mide (REGLAN), if ordered (step 3 of chris sea and vomiting management)
Post-procedure documented in this encounter Care Teams Portfolio Strategist Relationship Specialty Start Date End Date Froylan Louise MD PCP - General Family Practice 02/22/14 Froylan Louise MD PCP - Assigned PCP 03/13/14 08/25/18 Froylan Louise MD Assigned PCP 03/13/14 2 documented as of this encounter
--- OUTSIDE RECORDS SUMMARY | 2022-05-15 22:34 | XMS_ITS | Encounter Summary ---
:1955 Author Organization [place] Address [facility] [place] [address] Care Team Providers Name Role Phone Froylan Louise MD Primary Care Provider Unavailable Froylan Louise MD Unavailable Unavailable Froylan Louise MD Unavailable Unavailable Reason for Visit Auth/Cert Specialty Diagnoses / Procedures Referred By Contact Refer red To Contact Gastroenterology Diagnoses Ulcerative Colitis Rh Endoscopy Procedures POUCHOSCOPY [address] [place] [address] Phone: Fax: Referral ID Status Reason Start Date Expiration Date Visits Requ ested Visits Authorized [id number] 1 1 Encounter Details Date Type Department Care Team Description 06/20/2017 Hospital Encounter [facility] Julian Suazo MD Endoscopy [place] COLON RECTAL SURG [address] [place], [place] [address] [facility] [address] [facility] [address] [place], [place] [address] (Wo rk) Social History Tobacco Use Types [...] you attend religious or Patient refused 2020 sabianist services? Do you belong to any clubs or Yes 05/25/2021 organizations such as religious groups, unions, [employer] or athletic groups, or school groups? How [...] Comments Blood Pressure 113/82 06/20/2017 11:30 AM RAIL TRANSPORTATION TABELER Pulse - - Temperature - - Respiratory Rate 16 06/20/2017 11:30 AM RAIL TRANSPORTATION TABELER Oxygen Saturation 96% 06/20/2017 11:30 AM RAIL TRANSPORTATION TABELER Inhaled Oxygen Concentration - - Weight 106.1 kg (234 lb) 06/20/2017 10:29 AM RAIL TRANSPORTATION TABELER Height 179.1 cm (5' 10.5) 06/20/2017 10:29 AM RAIL TRANSPORTATION TABELER Body Mass Index 33.1 06/20/2017 10:29 AM RAIL TRANSPORTATION TABELER documented in this encounter Discharge Instructions Discharge [...] Adults Signature: Relationship to Patient: Nurses Signature: TRANSPORTATION TABELER documented in this encounter Medications at Time [...] PROVGI - PROVATION Routine 06/20/2017 10:40 AM Corie calderon for this GI EXAM RAIL TRANSPORTATION TABELER procedure are i n the results section. ENDOSCOPY, POUCH, 06/20/2017 10:33 AM Ulcerative Colit is DIAGNOSTIC RAIL TRANSPORTATION TABELER Special Needs Needs flex Sig scope documented in this encounter Results PROVGI - PROVATION GI EXAM (06/20/2017 10:40 AM RAIL TRANSPORTATION TABELER) [facility] gist Method Time Signature PROVGI [facility] RADIO LOGY RESULTS Patient Name: Virgil Christine ? Procedure Date: 06/20/2017 10:40 AM ? Accou nt Number: [id number] Date of : 1955 ?Admit Type: Out patient Age: 61 ? Gender: Male Attending MD: Chase Suazo MD ?Total Sedation Time: Instrument Name: 138 ? Procedure: ?Pouchoscopy Indications: ?History of total proctocolectomy, h/o ulcerative ?colitis Providers: ?Chase Suazo MD (Docto r) Referring MD: ? Froylan Louise MD ([facility] Medicines: ?Midazolam 3 mg IV, [...] The ?Olympus Peds Colonoscope Model #PCF-H190L, ?Endora#138, SN#[id number] was introduced through the ?ileoanal anastomosis via [...] Procedure Code(s): ? --- Professional --- ? 10061, Endoscopic evaluation of s mall intestinal pouch (eg, Kock pouch, ? ileal reservoir [S or J]); diagnostic, including kashmir ection of ? specimen(s) by brushing or washin g, when performed (separate procedure) Diagnosis Code(s): ? --- Professional --- ? Z90.49, Acquired absence of other specified parts o f digestive tract CPT copyright 2016 [employer]. All rights reserved. The codes documented in this report are prelimin dillon and upon banking management consulting manager review may be revised to meet current compliance requirements. Chase Suazo MD 06/20/2017 10:58:50 AM I was physically present for the entire viewing portion of t he exam. Chase Suazo MD Number of Addenda: 0 Note Initiated On: 06/20/2017 10:40 AM MRN: ?[id number] Procedure Date: ? 06/20/2017 10:40:57 AM Total Procedure Duration: 0 hours 7 minutes 0 seconds Estimated Blood Loss: ? Scope In: 10:45:47 AM Scope Out: 10:52:47 AM Specimen (Source) Anatomical Collection Method Collection Time Re ceived Time Location / / Volume Laterality 06/20/2017 10:40 AM RAIL TRANSPORTATION TABELER Froylan Louise MD PROCEDURES Performing Organization Address City/State/ZIP Code Phon e Number RADIOLOGY RESULTS documented in this encounter Visit Diagnoses Not on filedocumented in this encounter Administered Medications Inactive Administered Medications - up to 3 most recent administrations Medication Order MAR Action Action Date Dose Rate Site diphenhydrAMINE (BENADRYL) capsule 25 mg 25 mg, Oral, EVERY 4 HOURS PRN, itching, Starting on F ri 06/20/17 at 1111, Post-procedure diphenhydrAMINE (BENADRYL) injection 25 mg 25 mg, Intravenous, EVERY 4 HOURS PRN, itching, Admini ster over 1-2 Minutes, Starting on 06/20/17 at 1111, Use on ly if patient cannot take oral. For ordered doses up to 50 mg, give IV Push undiluted. Give each 2 5mg over a minimum of 1 minute. Extend in non-emergency, Post-procedure fentaNYL (PF) (SUBLIMAZE) injection Given 06/20/2017 10:46 AM RAIL TRANSPORTATION TABELER 100 mcg PRN, Administer over 3-5 Minutes, Starting on Fri06/20/17 at 1041, Intra-procedure Given 06/20/2017 10:41 AM RAIL TRANSPORTATION TABELER 100 mcg midazolam (VERSED) injection Given 06/20/2017 10:46 AM RAIL TRANSPORTATION TABELER 1 mg Administer over 2 Minutes, PRN, Starting on Fri06/20/17 at 1041, Intra-procedure Given 06/20/2017 10:41 AM RAIL TRANSPORTATION TABELER 2 mg ondansetron (ZOFRAN) injection 4 mg [...] Recently Administered Medications Times are shown in RAIL TRANSPORTATION TABELER. Scheduled Medication Order 06/18/2017 06/19/2017 06/20/2017 0.9% [...] Hicks RN - Comment: MICHELL) Administer over 3-5 Minutes, PRN, Starti ng Fri06/20/17 at 1041, Intra-procedure flumazenil (ROMAZICON) injection 0.2 [...] Oral, EVERY 4 HOURS PRN, itching, Starting 12/29/17 at 1111, Post-procedure Group 2: ondansetron (ZOFRAN-ODT) [...]
Post-procedure documented in this encounter Care Teams Cash Applications Coordinator Relationship Specialty Start Date End Date Dani, Froylan Ray, MD PCP - General Family Practice 02/22/14 Froylan Louise MD PCP - Assigned PCP 03/13/14 08/25/18 Froylan Louise MD Assigned PCP 03/13/14 2 documented as of this encounter
--- OUTSIDE RECORDS SUMMARY | 2022-05-15 22:34 | XMS_ITS | Encounter Summary ---
:1955 Author Organization [place] Address [address] [place] [address] Care Team Providers Name Role Phone Froylan Louise MD Primary Care Provider Unavailable Froylan Louise MD Unavailable Unavailable Froylan Louise MD Unavailable Unavailable Reason for Visit Reason Onset Date Comments Refill Request 08/22/2016 Marcy HFA inhaler 17MCG Encounter Details Date Type Department Care Team Description 08/22/[address] [facility] Froylan Louise Ra, Refill Request (Marcy Shaver MD HFA inhaler 17MCG) [address] [place] [address] Social History Tobacco Use [...] you attend voodoo or Patient refused 2020 amish services? Do [...] Telephone Encounter - Wendi Lindsay RN - 08/23/2016 8:47 AM CST Mychart sent to patient Wendi Lindsay RN, BSN KEGGER Telephone Encounter - Arleen Vidal RRT - 08/22/2016 8:41 PM CST Atrovent HFA inhaler 17MCG Last Written Prescription Date: 05/31/2016 Last Fill Quantity: 3inh, # refills: 3 Last [facility] [place] with [facility] [facility] prescribing provider: 05/31/2016 Future Office Visit: Date of Last Asthma Action Plan Letter: [...] found for this or any previous visit. Pt requests 3 inhalers at a time KEGGER documented in this encounter Plan of Treatment Upcoming Encounters Date Type Specialty Care Team Description 05/20/2022 Lab Lab documented as of this encounter Visit Diagnoses Diagnosis Mild persistent asthma without complicat ion Unspecified asthma documented in this encounter Care Teams Drapery Cutter Relationship Specialty Start Date End Date Froylan Louise MD PCP - General Family Practice 02/22/14 Froylan Louise MD PCP - Assigned PCP 03/13/14 08/25/18 Froylan Louise MD Assigned PCP 03/13/14 2 documented as of this encounter
--- OUTSIDE RECORDS SUMMARY | 2022-05-15 22:34 | XMS_ITS | Encounter Summary ---
:1955 Author Organization [place] Address [address] [place] [address] Care Team Providers Name Role Phone Froylan Louise MD Primary Care Provider Unavailable Froylan Louise MD Unavailable Unavailable Froylan Louise MD Unavailable Unavailable Reason for Visit Reason Comments Cough Encounter Details Date Type Department Care Team Description 10/01/2016 Office Visit [facility] Leonard Posada, Acute bronchitis, Clinic [place]haya VILLASE[facility]OR unspecified organism [id number] (Primary Dx) [place] [id number] [phone] Social History Tobacco Use Types Packs/Day Years Used Date Smoking Tobacco: Former Cigarettes 2 25 Quit : 08/04/2006 Smokeless Tobacco: Never Comments: 2005 Alcohol Use Standard Drinks/Week Comments Yes 0 (1 standard drink = 0.6 oz pure alcoho l) 4 BEERS A WEEK Alcohol Habits Answer Date Recorded How often do you have a drink containing 4 or more times a w [place] 05/25/2021 alcohol? How many drinks [...] you attend moravian or Patient refused 2020 methodist services? Do [...] Reading Time Taken Comments Blood Pressure 130/80 10/01/2016 4:21 PM CDT Pulse 83 10/01/2016 4:21 PM CDT Temperature 36.9 ??C (98.4 ??F) 10/01/2016 4:21 PM CDT Respiratory Rate 18 10/01/2016 4:21 PM CDT Oxygen Saturation 99% 10/01/2016 4:21 PM CDT Inhaled Oxygen Concentration - - Weight 103 kg (227 lb) 10/01/2016 4:21 PM CDT Height 182.9 cm (6') 10/01/2016 4:21 PM CDT Body Mass Index 30.79 10/01/2016 4:21 PM CDT documented in this encounter Progress Notes Leonard Posada MD - 10/01/2016 4:15 PM CDT SUBJECTIVE: Virgil Christine is a 60 year old male who presents to clinic today for the following health issues: RESPIRATORY SYMPTOMS ?? Duration: 2 days ?? Description cough ?? Severity: moderate ?? Accompanying signs and symptoms: None ?? History (predisposing factors): asthma and COPD ?? Precipitating or alleviating factors: None ?? Therapies tried and outcome: desiesin Concerned because he's had this ongoing cough and has been talking to friends about the prevalence of pneumonia. No fever no chills does have a history of asthma has been a smoker. OBJECTIVE: Vitals as noted by Nurse/MA above. Appearance: in no apparent distress. ENT- neck has bilateral anterior cervical nodes enlarged, pharynx erythematous without exudate and nasal mucosa congested. Chest - chest clear to IPPA, no tachypnea, retractions or cyanosis and S1, S2 normal, no murmur, no gallop, rate regular. ASSESSMENT: Bronchitis PLAN: Symptomatic therapy suggested: push fluids and rest. Call or return to clinic prn if these symptoms worsen or fail to improve as anticipated. Follow-up through primary care in 10 days if not improved documented in this encounter Nursing Notes Erin Breaux MA - 10/01/2016 4:15 PM CDT Chief Complaint Patient presents with ??? Cough Initial BP 130/80 Pulse 83 Temp 98.4 ??F (36.9 ??C) (Oral) Resp 18 Ht 6' (1.829 m) Wt 227 lb (103 kg) SpO2 99% BMI 30.79 kg/m2 Estimated body mass index is 30.79 kg/(m^2) as calculated from the following: Height as of this encounter: 6' (1.829 m). Weight as of this encounter: 227 lb (103 kg). Medication Reconciliation: complete Erin Breaux CMA documented in this encounter Plan of Treatment Upcoming Encounters Date Type Specialty Care Team Description 05/20/2022 Lab Lab documented as of this encounter Visit Diagnoses Diagnosis Acute bronchitis, unspecified organism - Primary documented in this encounter Care Teams Planner/Scheduler Relationship Specialty Start Date End Date Froylan Louise MD PCP - General Family Practice 02/22/14 Froylan Louise MD PCP - Assigned PCP 03/13/14 08/25/18 Froylan Louise MD Assigned PCP 03/13/14 2 documented as of this encounter
--- OUTSIDE RECORDS SUMMARY | 2022-05-15 22:34 | XMS_ITS | Encounter Summary ---
:1955 Author Organization [place] Address [address] [place] [address] Care Team Providers Name Role Phone Froylan Louise MD Primary Care Provider Unavailable Froylan Louise MD Unavailable Unavailable Froylan Louise MD Unavailable Unavailable Reason for Visit Reason Comments Medication Refill ATROVENT Encounter Details Date Type Department Care Team Description 04/01/2017 Refill [facility] Froylan Louise Ra, Medication Refill Chhaya VILLASEÑOR (ATROVENT ) [address] [place] [address] Social History Tobacco Use [...] you attend methodist or Patient refused 2020 jehovah's witness services? [...] Telephone Encounter - Wendi Lindsay RN - 04/01/2017 8:49 AM CDT Routing refill request to provider for review/approval because: Labs not current: ACT Pt will be due in May for physical Wendi Lindsay RN, BSN Telephone Encounter - Carlos Alberto Black - 04/01/2017 6:33 AM CDT Pending Prescriptions: Disp Refills ATROVENT HFA 17 MCG/ACT Inhaler [Pharmacy*12.9 I*2 Sig: INHALE 2 PUFFS INTO THE LUNGS EVERY 6 HOURS Last Written Prescription Date: 12/27/2015 Last Fill Quantity: 12.9 inhaler, # refills: 2 [place] [facility] prescribing provider: 05/31/2016 Future Office Visit: Date [...] asthma documented in this encounter Care Teams Tape Sewer Relationship Specialty Start Date End Date Froylan Louise MD PCP - General Family Practice 02/22/14 Froylan Louise MD PCP - Assigned PCP 03/13/14 08/25/18 Froylan Louise MD Assigned PCP 03/13/14 2 documented as of this encounter
--- OUTSIDE RECORDS SUMMARY | 2022-05-15 22:34 | XMS_ITS | Encounter Summary ---
:1955 Author Organization [place] Address [address] [place] [address] Care Team Providers Name Role Phone Froylan Louise MD Primary Care Provider Unavailable Froylan Louise MD Unavailable Unavailable Froylan Louise MD Unavailable Unavailable Reason for Visit Reason Comments Medication Refill Encounter Details Date Type Department Care Team Description 04/08/2017 Refill [facility] Froylan Louise Ra, MD Medication Refill [address] [address] Social History Tobacco Use [...] containing 4 or more times a w [place] 05/25/2021 alcohol? How many drinks containing alcohol [...] Telephone Encounter - Wendi Lindsay RN - 04/10/2017 6:59 AM CDT Routing refill request to provider for review/approval because: Appears patient is using more based on his refills. Attempted to contact but no response. Please advise on refill Wendi Lindsay RN, BSN Telephone Encounter - Wendi Lindsay RN - 04/09/2017 8:56 AM CDT Mychart sent Wendi Lindsay RN BSN Telephone Encounter - Wendi Lindsay RN - 04/08/2017 3:59 PM CDT This is a duplicate request. Called pharmacy and pt filled 3 inhalers in 05/2016, 09/2016; 11/2016; 01/2017 LMTRC to discuss use of inhalers If he is having more issues with asthma he needs to be seen sooner but for sure will be due in May (after the ) for a yearly physical ZEINA Harp RNN documented in this encounter Plan of Treatment Upcoming Encounters Date Type Specialty Care Team Description 05/20/2022 Lab Lab documented as of this encounter Visit Diagnoses Diagnosis Mild persistent asthma, uncomplicated Unspecified asthma documented in this encounter Care Teams Awning Hanger Helper Relationship Specialty Start Date End Date Froylan Louise MD PCP - General Family Practice 02/22/14 Froylan Louise MD PCP - Assigned PCP 03/13/14 08/25/18 Froylan Louise MD Assigned PCP 03/13/14 2 documented as of this encounter
--- OUTSIDE RECORDS SUMMARY | 2022-05-15 22:34 | XMS_ITS | Encounter Summary ---
:1955 Author Organization [place] Address [address] [place] [address] Care Team Providers Name Role Phone Froylan Louise MD Primary Care Provider Unavailable Froylan Louise MD Unavailable Unavailable Froylan Louise MD Unavailable Unavailable Reason for Visit Reason Comments Medication Refill ATROVENT HFA 17 MCG/ACT Inha ler Encounter Details Date Type Department Care Team Description 12/25/2016 Refill [facility] Froylan Louise Ra, Medication Refill Chhaya VILLASEÑOR (ATROVENT HFA 17 MCG/ACT [id number] [facility] Inhaler) [place] [address] Social History Tobacco Use [...] containing 4 or more times a w [place] 05/25/2021 alcohol? How many drinks containing alcohol [...] you attend denominational or Patient refused 2020 church services? Do [...] Telephone Encounter - Wendi Lindsay RN - 12/25/2016 9:36 AM CDT Routing refill request to provider for review/approval because: Labs not current: ACT Wendi Lindsay RN, BSN Telephone Encounter - Carlos Alberto Black - 12/25/2016 7:29 AM CDT Pending Prescriptions: Disp Refills ATROVENT HFA 17 MCG/ACT Inhaler [Pharmacy*12.9 I*2 Sig: INHALE 2 PUFFS INTO THE LUNGS EVERY 6 HOURS Last Written Prescription Date: 10/04/2016 Last Fill Quantity: 12.9 inhaler, # refills: 2 Last Office Visit with [facility] or [facility] prescribing provider: 05/31/2016 Future Office Visit: Date [...] asthma documented in this encounter Care Teams Sed Special Education Teacher Relationship Specialty Start Date End Date Froylan Louise MD PCP - General Family Practice 02/22/14 Froylan Louise MD PCP - Assigned PCP 03/13/14 08/25/18 Froylan Louise MD Assigned PCP 03/13/14 2 documented as of this encounter
--- OUTSIDE RECORDS SUMMARY | 2022-05-15 22:34 | XMS_ITS | Encounter Summary ---
:1955 Author Organization [place] Address [address] [place] [address] Care Team Providers Name Role Phone Froylan Louise MD Primary Care Provider Unavailable Froylan Louise MD Unavailable Unavailable Froylan Louise MD Unavailable Unavailable Reason for Visit Reason Onset Date Comments Nurse Advice Line 06/30/2017 Encounter Details Date Type Department Care Team Description 06/30/2017 Telephone [facility] Froylan Louise Ra, MD Nurse Advice Line [address] [address] Social History Tobacco Use [...] containing 4 or more times a w [place] 05/25/2021 alcohol? How many drinks containing [...] you attend hoahaoism or Patient refused 2020 baptist services? Do [...] Encounter - Page, Esthela Conrad RN - 06/30/2017 2:35 PM CST Pt notified will f/u if symptoms continue Esthela Corea RN HATCHERY WORKER Telephone Encounter - Froylan Louise MD - 06/30/2017 2:13 PM CST Can stop med. Follow-up with colon provider as planned. Ok to use fiber and increase fluids initially. I would hesitate to use other agents for stools as they may cause excessive diarrhea with not having colon - hopefully stopping abx improves harder stools. HATCHERY WORKER Telephone Encounter - Wendi Lindsay RN - 06/30/2017 2:00 PM CST Pt calling stating he is more constipated since being on Augmentin and it is darker in color almost black. This started about 2 days ago and he will be done with medication on Friday as which time he has an appt with Colon and Rectal He states the bumps are barely there and wants PCP to know this. Pt states he does not have a colon and his stools are usually liquid but now they are hard and more formed. Please advise if pt should stop medication, if this is normal, and what he can do about constipation. Wendi Lindsay RN, BSN HATCHERY WORKER documented in this encounter Plan of Treatment Upcoming Encounters Date Type Specialty Care Team Description 05/20/2022 Lab Lab documented as of this encounter Visit Diagnoses Not on filedocumented in this encounter Care Teams Quality And Reliability Engineer Relationship Specialty Start Date End Date Froylan Louise MD PCP - General Family Practice 02/22/14 Froylan Louise MD PCP - Assigned PCP 03/13/14 08/25/18 Froylan Louise MD Assigned PCP 03/13/14 2 documented as of this encounter
--- OUTSIDE RECORDS SUMMARY | 2022-05-15 22:34 | XMS_ITS | Encounter Summary ---
:1955 Author Organization [place] Address [address] [place] [address] Care Team Providers Name Role Phone Froylan Louise MD Primary Care Provider Unavailable Froylan Louise MD Unavailable Unavailable Froylan Louise MD Unavailable Unavailable Reason for Visit Reason Onset Date Comments Panel Management 06/09/2017 Encounter Details Date Type Department Care Team Description 06/09/2017 Telephone [facility] Froylan Louise Ra, MD Panel Management [address] [address] Social History Tobacco Use [...] you attend denominational or Patient refused 2020 christianity services? Do [...] encounter Miscellaneous Notes Telephone Encounter - Hilda Gibson CMA - 06/09/2017 4:27 PM CST Panel Management Review Patient has the following on his problem list: Asthma review ACT Total Scores 01/24/2016 ACT TOTAL SCORE [...] hospitalized overnight because of your asthma? 0 1. Is Asthma diagnosis on the Problem List? Yes 2. Is Asthma listed on Health Maintenance? Yes 3. Patient is due for: ACT and AAP Composite cancer screening Chart review shows that this patient is due/due soon for the following None Summary: Patient is due/failing the following: ACT Action needed: Patient needs to do ACT. Type of outreach: Phone, left message for patient to call back. Questions for provider review: None Hilda Gibson CMA Chart routed to none . ARTIST documented in this encounter Plan of Treatment Upcoming Encounters Date Type Specialty Care Team Description 05/20/2022 Lab Lab documented as of this encounter Visit Diagnoses Diagnosis Anal fistula - Primary documented in this encounter Care Teams Meter Attendant Relationship Specialty Start Date End Date Froylan Louise MD PCP - General Family Practice 02/22/14 Froylan Louise MD PCP - Assigned PCP 03/13/14 08/25/18 Froylan Louise MD Assigned PCP 03/13/14 2 documented as of this encounter
--- OUTSIDE RECORDS SUMMARY | 2022-05-15 22:34 | XMS_ITS | Encounter Summary ---
:1955 Author Organization [place] Address [address] [place] [address] Care Team Providers Name Role Phone Froylan Louise MD Primary Care Provider Unavailable Froylan Louise MD Unavailable Unavailable Froylan Louise MD Unavailable Unavailable Reason for Visit Reason Onset Date Comments CT Results 06/24/[address] [facility] CT and US Encounter Details Date Type Department Care Team Description 06/24/2017 Telephone [facility] Froylan Louise CT R esults ([facility] CT and Clinic Liliam VILLASEÑOR US) [facility], [address] [place] [address] Social History Tobacco Use Types Packs/Day Years [...] you attend denominational or Patient refused 2020 congregational services? Do [...] Encounter - Page, Esthela M, RN - 06/25/2017 5:03 PM CST Called to clinic they were closed will call in AM Esthela Corea RN DRESSER Telephone Encounter - Froylan Louise MD - 06/25/2017 4:46 PM CST Discussed on phone. 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 He notes increased swelling and warmth/redness and some chills - Augmentin sent to pharmacy and follow-up if not improving in the meantime waiting to see colorectal. Send record copy to Dr. Chase Su[facility] as well as get patient appt with him in clinic. DRESSER Telephone Encounter - Carolin Dawson - 06/25/2017 7:09 AM CST Placed records on Dr. Louise's station to review. Carolin Dawson Hall Worker DRESSER Telephone Encounter - Irma Dunaway - 06/24/2017 10:00 AM CST Ph. [phone] and US results from [facility]. I called and received the reports. Patient also calling for lab results. Thanks! Irma Dunaway Hall Worker DRESSER documented in this encounter Plan of Treatment Upcoming Encounters Date Type Specialty Care Team Description 05/20/2022 Lab Lab documented as of this encounter Visit Diagnoses Not on filedocumented in this encounter Care Teams Wireline Operator Relationship Specialty Start Date End Date Froylan Louise MD PCP - General Family Practice 02/22/14 Froylan Louise MD PCP - Assigned PCP 03/13/14 08/25/18 Froylan Louise MD Assigned PCP 03/13/14 2 documented as of this encounter
--- OUTSIDE RECORDS SUMMARY | 2022-05-15 22:34 | XMS_ITS | Encounter Summary ---
:1955 Author Organization [place] Address [address] [place] [address] Care Team Providers Name Role Phone Froylan Louise MD Primary Care Provider Unavailable Froylan Louise MD Unavailable Unavailable Froylan Louise MD Unavailable Unavailable Reason for Visit Reason Onset Date Comments Panel Management 03/04/2017 Encounter Details Date Type Department Care Team Description 03/04/2017 Telephone [facility] Froylan Louise Ra, MD Panel Management [address] [address] Social History Tobacco Use [...] you attend jewish or Patient refused 2020 latter day services? [...] Telephone Encounter - Berto Daniel CMA - 03/04/2017 2:35 PM CDT Panel Management Review Patient has the following on his problem list: None Composite cancer screening Chart review shows that this patient is due/due soon for the following Colonoscopy Summary: Patient is due/failing the following: COLONOSCOPY Action needed: Patient needs office visit for up to date. Type of outreach: nothing to do Questions for provider review: None Berto Daniel CMA Chart routed to none . documented in this encounter Plan of Treatment Upcoming Encounters Date Type Specialty Care Team Description 05/20/2022 Lab Lab documented as of this encounter Visit Diagnoses Not on filedocumented in this encounter Care Teams Mail Clerk Bills Relationship Specialty Start Date End Date Froylan Louise MD PCP - General Family Practice 02/22/14 Froylan Louise MD PCP - Assigned PCP 03/13/14 08/25/18 Froylan Louise MD Assigned PCP 03/13/14 2 documented as of this encounter
--- OUTSIDE RECORDS SUMMARY | 2022-05-15 22:34 | XMS_ITS | Encounter Summary ---
:1955 Author Organization [place] Address [address] [place] [address] Care Team Providers Name Role Phone Froylan Louise MD Primary Care Provider Unavailable Froylan Louise MD Unavailable Unavailable Froylan Louise MD Unavailable Unavailable Reason for Visit Reason Comments Medication Refill qvar Encounter Details Date Type Department Care Team Description 04/08/2017 Refill [facility] Froylan Louise Ra, Medication Refill (qvar) Chhaya [address] [address] [place] [address] Social History Tobacco Use [...] containing 4 or more times a w enterprise 05/25/2021 alcohol? How many drinks containing alcohol [...] you attend moravian or Patient refused 2020 yazidi services? Do [...] Telephone Encounter - Nay Simmons RN - 04/08/2017 4:11 PM CDT Pt has enough inhalers currently Will request refills closer to Dec Nay Simmons RN, BS Clinical Nurse Triage. Telephone Encounter - Wendi Lindsay RN - 04/08/2017 3:25 PM CDT Pt should have enough until May 2017 Wendi Lindsay RN, BSN Telephone Encounter - Carlos Alberto Black - 04/08/2017 3:23 PM CDT Pending Prescriptions: Disp Refills QVAR 80 MCG/ACT Inhaler [Pharmacy Med Nam*26.1 g 3 Sig: INHALE 2 PUFFS INTO THE LUNGS 2 TIMES DAILY Last Written Prescription Date: 05/31/2016 Last Fill Quantity: 3, # refills: 3 Last Office Visit with [facility], P or [facility] prescribing provider: 05/31/2016 Future Office Visit: Date [...] asthma documented in this encounter Care Teams Shirt Finisher Relationship Specialty Start Date End Date Froylan Louise MD PCP - General Family Practice 02/22/14 Froylan Louise MD PCP - Assigned PCP 03/13/14 08/25/18 Froylan Louise MD Assigned PCP 03/13/14 2 documented as of this encounter
--- OUTSIDE RECORDS SUMMARY | 2022-05-15 22:34 | XMS_ITS | Encounter Summary ---
:1955 Author Organization [place] Address [facility] [place] [address] Care Team Providers Name Role Phone Froylan Louise MD Primary Care Provider Unavailable Froylan Louise MD Unavailable Unavailable Froylan Louise MD Unavailable Unavailable Reason for Visit Reason Comments Recheck Medication med refills needed Mass left side buttox . Encounter Details Date Type Department Care Team Description 06/13/2017 Office Visit [facility] Froylan Louise Routine g eneral medical examination at a health care facility (Primary Dx); Clinic Chhaya Dubose MD Mild persistent asthma, unco mplicated; [address] Mild persistent asthma witho ut complication; [place], [place] Lichen planus; [address] Insomnia, unspecified type; [phone] Postthrombotic syndrome; Peripheral sebastian a; Erectile dysfun ction, unspecified erectile dysfunction type; Cramp of limb; Personal histor y of DVT (deep vein thrombosis); S/P colectomy; Other ulcerativ e colitis without complication (H); Chronic midline low back pain without sciatica; Leg swelling; Perirectal infl ammation; Elevated blood pressure reading without diagnosis of hypertension Social History Tobacco Use Types Packs/Day Years Used Date Smoking Tobacco: Former Cigarettes 2 25 Quit : 08/04/2006 Smokeless Tobacco: Never Comments: 2004 Alcohol Use Standard Drinks/Week Comments Yes 0 (1 standard drink = 0.6 oz pure alcoho l) 4 BEERS A WEEK Alcohol Habits Answer Date Recorded How often do you have a drink containing 4 or more times a w shinnecock 05/25/2021 alcohol? How many drinks containing alcohol [...] you attend alevism or Patient refused 2020 latter day services? Do you belong to any clubs or Yes 05/25/2021 organizations such as alevism groups, unions, fraJingit or athletic groups, or school groups? How [...] Sign Reading Time Taken Comments Blood Pressure 148/90 06/13/2017 3:04 PM PRODUCER DIRECTOR Pulse 98 06/13/2017 3:04 PM PRODUCER DIRECTOR Temperature 36.7 ??C (98 ??F) 06/13/2017 3:04 PM PRODUCER DIRECTOR Respiratory Rate - - Oxygen Saturation 98% 06/13/2017 3:04 PM PRODUCER DIRECTOR Inhaled Oxygen Concentration - - Weight 106.1 kg (234 lb) 06/13/2017 3:04 PM PRODUCER DIRECTOR Height 179.1 cm (5' 10.5) 06/13/2017 3:04 PM PRODUCER DIRECTOR Body Mass Index 33.1 06/13/2017 3:04 PM PRODUCER DIRECTOR documented in this encounter Progress Notes Froylan Louise MD - 06/13/2017 3:00 PM CST SUBJECTIVE: CC: Virgil Christine is an 61 year old male who presents for preventative health visit. Physical Annual: Getting at least 3 servings of Calcium per day:: Yes Bi-annual eye exam:: NO Dental care twice a year:: Yes Sleep apnea or symptoms of sleep apnea:: None Diet:: Regular (no restrictions) Frequency of exercise:: 2-3 days/week Duration of exercise:: 30-45 minutes Taking medications regularly:: Yes Medication side effects:: None Additional concerns today:: No Patient with history of venous stasis ulcer and deep vein thrombosis. He reports swollen ankles bilaterally for the past 1.5 weeks. He had sharp left calf pain that lasted for four days and has now subsided. Patient with history of ulcerative colitis. He reports a painful lump on his buttock for over one year. The lump grows and shrinks. Today's PHQ-2 Score: PHQ-2 (??1998 Pfizer) 06/13/2017 Q1: Little interest or pleasure in doing things 0 Q2: Feeling down, depressed or hopeless 0 PHQ-2 Score 0 Q1: Little interest or pleasure in doing things Not at all Q2: Feeling down, depressed or hopeless Not at all PHQ-2 Score 0 Abuse: Current or Past(Physical, Sexual or Emotional)- No Do you feel safe in your environment - Yes Social History Substance Use Topics ??? Smoking status: Former Smoker Packs/day: 2.00 Years: 25.00 Types: Cigarettes Quit date: 08/04/2006 ??? Smokeless tobacco: Never Used Comment: 2005 ??? Alcohol use Yes Comment: 4 BEERS A WEEK Alcohol Use 06/13/2017 If you drink alcohol, do you typically have greater than 3 drinks per day OR greater than 7 drinks per week??? No Last PSA: PSA Date Value Ref Range Status 07/07/2013 0.45 0 - 4 ug/L Final Reviewed orders with patient. Reviewed health maintenance and updated orders accordingly - Yes Patient Active Problem List Diagnosis ??? Anticardiolipin antibody positive ??? Mild persistent asthma ??? Health Half-Way ? ? Hyperlipidemia LDL goal <160 ??? [...] Jose Fonseca MD; Location: [facility] OR ??? COLOSTOMY ??? bindu filter ??? ORTHOPEDIC SURGERY ??? POUCHOSCOPY N/A 06/22/2014 Procedure: POUCHOSCOPY; Surgeon: Chase Suazo MD; Location: [facility] ??? RESECTION ABDOMINAL PERINEAL Social History Substance Use Topics ??? Smoking status: Former Smoker Packs/day: 2.00 Years: 25.00 Types: Cigarettes Quit date: 08/04/2006 ??? Smokeless tobacco: Never Used Comment: 2005 ??? Alcohol use Yes Comment: 4 BEERS A WEEK Family History Problem Relation Age of Onset ??? DIABETES Mother Reviewed and updated as needed this visit by clinical staff Tobacco Allergies Meds Med Hx Surg Hx Fam Hx Soc Hx Reviewed and updated as needed this visit by Provider Past Medical History: Diagnosis Date ??? Arthritis ??? COPD (chronic obstructive pulmonary disease) (H) ??? DVT (deep venous thrombosis) (H) RIGHT LEG AFTER COLON SURGERY. ??? Personal history of DVT (deep vein thrombosis) 08/17/2013 ??? Sleep apnea NOT BEING TREATED FOR THIS. ??? Ulcerative colitis (H) Had Colectomy ??? Unspecified hemorrhoids without mention of complication Hemorrhoids Past Surgical History: Procedure Laterality Date ??? ARTHROPLASTY KNEE UNICOMPARTMENT 08/20/2013 Procedure: ARTHROPLASTY KNEE UNICOMPARTMENT; Right Knee Uni Arthroplasty ; Surgeon: Jose Fonseca MD; Location: [facility] OR ??? COLOSTOMY ??? bindu filter ??? ORTHOPEDIC SURGERY ??? POUCHOSCOPY N/A 06/22/2014 Procedure: POUCHOSCOPY; Surgeon: Chase Suazo MD; Location: [facility] ??? RESECTION ABDOMINAL PERINEAL Review of Systems C: NEGATIVE for fever, chills, change in weight I: as above E: NEGATIVE for vision changes or irritation ENT: NEGATIVE for ear, mouth and throat problems R: NEGATIVE for significant cough or SOB CV: as above, otherwise NEGATIVE for chest pain, palpitations GI: NEGATIVE for nausea, abdominal pain, heartburn, or change in bowel habits male: negative for dysuria, hematuria, decreased urinary stream, erectile dysfunction, urethral discharge M: NEGATIVE for significant arthralgias or myalgia N: NEGATIVE for weakness, dizziness or paresthesias P: NEGATIVE for changes in mood or affect This document serves as a record of the services and decisions personally performed and made by Froylan Louise MD. It was created on his behalf by Sofia Altman, a trained mobile paramedical examiner. The creation of this document is based on the provider's statements to the mobile paramedical examiner. Sofia Altman 3:34 PM June 13, 2017 OBJECTIVE: BP 148/90 (BP Location: Right arm, Patient Position: Sitting, Cuff Size: Adult Large) Pulse 98 Temp 98 ??F (36.7 ??C) (Oral) Ht 1.791 m (5' 10.5) Wt 106.1 kg (234 lb) SpO2 98% BMI 33.1 kg/m2 Physical Exam GENERAL: healthy, alert and no distress EYES: Eyes grossly normal to inspection, PERRL and conjunctivae and sclerae normal HENT: ear canals and TM's normal, nose and mouth without ulcers or lesions NECK: no adenopathy, no asymmetry, masses, or scars and thyroid normal to palpation RESP: Mild expiratory wheeze with forced expiration, lungs clear to auscultation - no rales, rhonchior wheezes CV: Left leg 1+ swelling to mid zacarias no erythema non tender, regular rate and rhythm, normal S1 S2, no S3 or S4, no murmur, click or rub, peripheral pulses strong ABDOMEN: soft, nontender, no hepatosplenomegaly, no masses and bowel sounds normal (male): normal male genitalia without lesions or urethral discharge, no hernia RECTAL: Left perirectal area firm and indurated mildly tender no erythema no rectal tenderness no drainage MS: no gross musculoskeletal defects noted, no edema SKIN: no suspicious lesions or rashes NEURO: Normal strength and tone, mentation intact and speech normal PSYCH: mentation appears normal, affect normal/bright ASSESSMENT/PLAN: 1. Routine general medical examination at a health care facility 2. Mild persistent asthma, uncomplicated Mild wheezing, consider Advair or other, patient feels well and scores well with ACT. Continue same for now. - beclomethasone (QVAR) 80 MCG/ACT Inhaler; INHALE 2 PUFFS INTO THE LUNGS 2 TIMES DAILY Dispense: 3 Inhaler; Refill: 3 3. Mild persistent asthma without complication - albuterol (PROAIR HFA/PROVENTIL HFA/VENTOLIN HFA) 108 (90 BASE) MCG/ACT Inhaler; Inhale 2 puffs into the lungs every 6 hours as needed for shortness of breath / dyspnea or wheezing Dispense: 3 Inhaler; Refill: 3 4. Lichen planus 5. Insomnia, unspecified type - zolpidem (AMBIEN CR) 12.5 MG CR tablet; TAKE ONE TABLET BY MOUTH NIGHTLY NEEDED FOR SLEEP Dispense: 30 tablet; Refill: 2 6. Postthrombotic syndrome - furosemide (LASIX) 20 MG tablet; Take 0.5 tablets (10 mg) by mouth daily Take 0.5-1 tablets by mouth. Take as needed for leg swelling. Dispense: 90 tablet; Refill: 3 - order for DME; Equipment being ordered: compression stocking 2 pair knee high 20-30 mmHg Dispense:2 Units; Refill: 0 7. Peripheral edema Recommend US left lower extremity with new swelling and history. - furosemide (LASIX) 20 MG tablet; Take 0.5 tablets (10 mg) by mouth daily Take 0.5-1 tablets by mouth. Take as needed for leg swelling. Dispense: 90 tablet; Refill: 3 8. Erectile dysfunction, unspecified erectile dysfunction type - sildenafil (VIAGRA) 50 MG tablet; Take 0.5-1 tablets (25-50 mg) by mouth daily as needed Dispense:6 tablet; Refill: 3 9. Cramp of limb - cyclobenzaprine (FLEXERIL) 10 MG tablet; Take 1 tablet (10 mg) by mouth 3 times daily as needed for muscle spasms Dispense: 30 tablet; Refill: 2 10. Personal history of DVT (deep vein thrombosis) 11. S/P colectomy 12. Other ulcerative colitis without complication (H) 13. Chronic midline low back pain without sciatica - oxyCODONE-acetaminophen (PERCOCET) 5-325 MG per tablet; Take 1-2 tablets by mouth every 6 hours asneeded for moderate to severe pain Dispense: 20 tablet; Refill: 0 14. Leg swelling Recommend US leg - requests [facility] - order given. - US Lower Extremity Venous Duplex Left; Future 15. Perirectal inflammation Rule out perirectal abscess or fistula with his history. - CT Pelvis w/o Contrast; Future 16. Elevated blood pressure reading without diagnosis of hypertension Continue to monitor. COUNSELING: Reviewed preventive health counseling, as reflected in patient instructions Special attention given to: Regular exercise Healthy diet/nutrition Immunizations ?? Vaccinated for: Influenza BP Screening: Last 3 BP Readings: BP Readings from Last 3 Encounters: 06/13/17 148/90 10/01/16 130/80 05/31/16 126/82 The following was recommended to the patient: Re-screen within 4 weeks and recommend lifestyle modifications reports that he quit smoking about 10 years ago. His smoking use included Cigarettes. He has a 50.00 pack-year smoking history. He has never used smokeless tobacco. Estimated body mass index is 33.1 kg/(m^2) as calculated from the following: Height as of this encounter: 1.791 m (5' 10.5). Weight as of this encounter: 106.1 kg (234 lb). Weight management plan: Discussed healthy diet and exercise guidelines and patient will follow up in12 months in clinic to re-evaluate. Counseling Resources: ATP IV Guidelines Pooled Cohorts Equation Calculator FRAX Risk Assessment ICSI Preventive Guidelines Dietary Guidelines for Americans, 2009 USDA's MyPlate ASA Prophylaxis Lung CA Screening The information in this document, created by the mobile paramedical examiner for me, accurately reflects the services I personally performed and the decisions made by me. I have reviewed and approved this document for accuracy prior to leaving the patient care area. June 13, 2017 4:17 PM Froylan Louise MD [facility] Answers for HPI/ROS submitted by the patient on 06/13/2017 PHQ-2 Score: 0 UCER DIRECTOR documented in this encounter Nursing Notes Marco Pak CMA - 06/13/2017 3:00 PM CST Chief Complaint Patient presents with ??? Recheck Medication med refills needed ??? Mass left side buttox . Initial BP 148/90 (BP Location: Right arm, Patient Position: Sitting, Cuff Size: Adult Large) Pulse 98 Temp 98 ??F (36.7 ??C) (Oral) Ht 5' 10.5 (1.791 m) Wt 234 lb (106.1 kg) SpO2 98% BMI 33.1 kg/m2 Estimated body mass index is 33.1 kg/(m^2) as calculated from the following: Height as of this encounter: 5' 10.5 (1.791 m). Weight as of this encounter: 234 lb (106.1 kg). 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 Peripheral edema Edema Erectile dysfunction, unspecified erecti le dysfunction type Cramp of limb Personal history of DVT (deep vein throm bosis) Personal history of venous thrombosis an d embolism S/P colectomy Other postprocedural status Other ulcerative colitis without complic ation (H) Chronic midline low back pain without sc iatica Leg swelling Swelling of limb Perirectal inflammation Other specified disorder of rectum and a nus Elevated blood pressure reading without diagnosis of hypertension documented in this encounter Care Teams Stack Clerk Relationship Specialty Start Date End Date Froylan Louise MD PCP - General Family Practice 02/22/14 Froylan Louise MD PCP - Assigned PCP 03/13/14 08/25/18 Froylan Louise MD Assigned PCP 03/13/14 2 documented as of this encounter
--- OUTSIDE RECORDS SUMMARY | 2022-05-15 22:34 | XMS_ITS | Encounter Summary ---
:1955 Author Organization [place] Address [address] [place] [id number] Care Team Providers Name Role Phone Froylan Louise MD Primary Care Provider Unavailable Froylan Louise MD Unavailable Unavailable Froylan Louise MD Unavailable Unavailable Esthela Corea RN Unavailable Unavailable So Dodd MD Primary Care Provider Froylan Louise MD Primary Care Provider Unavailable So Dodd MD Unavailable So Dodd MD Primary Care Provider Reason for Visit Reason Onset Date Comments Orders 05/21/2017 Encounter Details Date Type Department Care Team Description 05/21/2017 [facility] Froylan Louise Ra, MD Orders [facility] [address] [place] [address] Social History Tobacco Use [...] you attend yarsani or Patient refused 2020 confucianist services? Do [...] Telephone Encounter - Froylan Louise MD - 05/21/2017 12:55 PM CST Do labs at scheduled visit. He has procedure upcoming - make sure if he needs preop then we should schedule him appropriately for that. F CONTAINER INSPECTOR Telephone Encounter - Monica Patrick - 05/21/2017 9:38 AM CST Lab needs future orders placed please. Thank you Monica F CONTAINER INSPECTOR documented in this encounter Plan of Treatment Upcoming Encounters Date Type Specialty Care Team Description 05/20/2022 Lab Lab documented as of this encounter Visit Diagnoses Not on filedocumented in this encounter Additional Health Concerns Infection Onset Date Last Indicated Resolved Time Rule Out COVID-19 10/31/2019 10/31/2019 11/01/2019 1:0 8 PM CDT documented as of this encounter Care Teams Investment Accountant Relationship Specialty Start Date End Date Froylan Louise MD PCP - General Family Practice 02/22/14 Froylan Louise MD PCP - Assigned PCP 03/13/14 08/25/18 So Dodd MD PCP - General Family Medicine 01/10/22 01/17/22 [id number] [place] [address] Froylan Louise MD PCP - General Family Medicine 01/18/22 So Dodd MD PCP - General Family Medicine 02/21/22 [address] [place] [address] Froylan Louise MD Assigned PCP 03/13/14 2 Esthela Corea RN Personal Advocate & Liaison Family Medicine 10/16 (PAL) So Dodd MD Assigned PCP 01/05/22 [address] [place] [address] documented as of this encounter
--- OUTSIDE RECORDS SUMMARY | 2022-05-15 22:34 | XMS_ITS | Encounter Summary ---
:1955 Author Organization [place] Address [address] [place] [address] Care Team Providers Name Role Phone Froylan Louise MD Primary Care Provider Unavailable Froylan Louise MD Unavailable Unavailable Froylan Louise MD Unavailable Unavailable Reason for Visit Reason Comments Medication Refill immodium Encounter Details Date Type Department Care Team Description 06/10/[address] [facility] Froylan Louise Ra, Medication Refill Chhaya VILLASEÑOR (immodium) [address] [place] [address] Social History Tobacco Use [...] you attend synagogue or Patient refused 2020 mormon services? Do [...] Telephone Encounter - Wendi Lindsay RN - 06/10/2017 10:17 AM CST Medication is being filled for 1 time refill only due to: Patient needs to be seen because it has been more than one year since last visit. Pt has appt on 06/13/17 Wendi Lindsay RN, BSN Y ABROAD ADVISOR documented in this encounter Plan of Treatment Upcoming Encounters Date Type Specialty Care Team Description 05/20/2022 Lab Lab documented as of this encounter Visit Diagnoses Diagnosis H/O ulcerative colitis Personal history of other diseases of di gestive system documented in this encounter Care Teams Quality Nurse Relationship Specialty Start Date End Date Froylan Louise MD PCP - General Family Practice 02/22/14 Froylan Louise MD PCP - Assigned PCP 03/13/14 08/25/18 Froylan Louise MD Assigned PCP 03/13/14 2 documented as of this encounter
--- OUTSIDE RECORDS SUMMARY | 2022-05-15 22:35 | XMS_ITS | Encounter Summary ---
:1955 Author Organization [facility] Address [facility] [place] [address] Care Team Providers Name Role Phone Froylan Louise MD Primary Care Provider Unavailable Froylan Louise MD Unavailable Unavailable Froylan Louise MD Unavailable Unavailable Reason for Visit Reason Comments Physical different pain medcations Encounter Details Date Type Department Care Team Description 05/04/2015 Office Visit [facility] Froylan Louise g eneral medical examination at a health care facility (Primary Dx); Clinic Chhaya Dubose MD H/O ulcerative colitis; [id number] [facility] Mild persistent asthma, unco mplicated; [place], [place] Mild persisten t asthma without complication; [id number] Hyperlipidemia LDL goal <160 ; [phone] Postthrombotic syndrome; Bilateral low b ack pain without sciatica; Erectile dysfun ction, unspecified erectile dysfunction type; Anticardiolipin antibody positive Social History Tobacco Use Types Packs/Day Years Used Date Smoking Tobacco: Former Cigarettes 2 25 Quit : 08/04/2006 Smokeless Tobacco: Never Comments: 2004 Alcohol Use Standard Drinks/Week Comments Yes 0 (1 standard drink = 0.6 oz pure alcoho l) 4 BEERS A WEEK Alcohol Habits Answer Date Recorded How often do you have a drink containing 4 or more times a w [place] 05/25/2021 alcohol? How many drinks containing alcohol [...] you attend buddhism or Patient refused 2020 episcopalian services? Do [...] Sign Reading Time Taken Comments Blood Pressure 124/80 05/04/2015 9:04 AM RUBBER ROLLER GRINDER OPERATOR Pulse 78 05/04/2015 9:04 AM RUBBER ROLLER GRINDER OPERATOR Temperature 36.7 ??C (98.1 ??F) 05/04/2015 9:04 AM RUBBER ROLLER GRINDER OPERATOR Respiratory Rate - - Oxygen Saturation 98% 05/04/2015 9:04 AM RUBBER ROLLER GRINDER OPERATOR Inhaled Oxygen Concentration - - Weight 102.1 kg (225 lb) 05/04/2015 9:04 AM RUBBER ROLLER GRINDER OPERATOR Height 182.9 cm (6') 05/04/2015 9:04 AM RUBBER ROLLER GRINDER OPERATOR Body Mass Index 30.52 05/04/2015 9:04 AM RUBBER ROLLER GRINDER OPERATOR documented in this encounter Progress Notes Froylan Louise MD - 05/11/2015 7:42 AM CST SUBJECTIVE: CC: Virgil Christine is an 59 year old male who presents for preventative health visit. Healthy Habits: ?? Do you get at least three servings of calcium containing foods daily (dairy, green leafy vegetables, etc.)? no, taking calcium and/or vitamin D supplement: no ?? Amount of exercise or daily activities, outside of work: 3 days(s) per week ?? Problems taking medications regularly No ?? Medication side effects: No ?? Have you had an eye exam in the past two years? no ?? Do you see a dentist twice per year? yes ?? Do you have sleep apnea, excessive snoring or daytime drowsiness?no Other concerns to address: Recheck meds Today's PHQ-2 Score: PHQ-2 (??1998 Developed by DrsBeatriz Cowart, Ya Sanabria, Chris Avina and colleagues,with an educational cisco from [employer].) 05/04/2015 05/27/2014 Q1: Little interest or pleasure in doing things 0 0 Q2: Feeling down, depressed or hopeless 0 0 PHQ-2 Total Score Interpretation - Positive if 3 or more points; Administer PHQ- 9 if positive 0 0 Abuse: Current or Past(Physical, Sexual or Emotional)- No Do you feel safe in your environment - Yes History Substance Use Topics ??? Smoking status: Former Smoker -- 2.00 packs/day for 25 years Types: Cigarettes Quit date: 08/04/2006 ??? Smokeless tobacco: Never Used Comment: 2004 ??? Alcohol Use: Yes Comment: 4 BEERS A WEEK Last PSA: PSA Date Value Ref Range Status 07/07/2013 0.45 0 - 4 ug/L Final Recent Labs Lab Test 05/04/15 0939 06/18/14 0803 CHOL 170 197 HDL 51 45 LDL 100 110 TRIG 93 211* CHOLHDLRATIO 3.3 4.4 Reviewed orders with patient. Reviewed health maintenance and updated orders accordingly - Yes All Histories reviewed and updated in [facility]. Past Medical History Diagnosis Date ??? Unspecified hemorrhoids without mention of complication Hemorrhoids ??? Sleep apnea NOT BEING TREATED FOR THIS. ??? DVT (deep venous thrombosis) (HCC) RIGHT LEG AFTER COLON SURGERY. ??? Ulcerative colitis (HCC) Had Colectomy ??? Arthritis ??? Personal history of DVT (deep vein thrombosis) 08/17/2013 ??? COPD (chronic obstructive pulmonary disease) (HCC) Past Surgical History Procedure Laterality Date ??? Colostomy ??? [place] filter ??? Resection abdominal perineal ??? Arthroplasty knee unicompartment 08/20/2013 Procedure: ARTHROPLASTY KNEE UNICOMPARTMENT; Right Knee Uni Arthroplasty ; Surgeon: Jose Fonseca MD; Location: OR ??? Pouchoscopy N/A 06/22/2014 Procedure: POUCHOSCOPY; Surgeon: Chase Suazo MD; Location: GI ROS: C: NEGATIVE for fever, chills, change in weight I: NEGATIVE for worrisome rashes, moles or lesions E: NEGATIVE for vision changes or irritation [...] NEGATIVE for changes in mood or affect Problem list, Medication list, Allergies, and Medical/Social/Surgical histories reviewed in [facility] andupdated as appropriate. OBJECTIVE: BP 124/80 mmHg Pulse 78 Temp(Src) 98.1 ??F (36.7 ??C) (Oral) Ht 6' (1.829 m) Wt 225 lb (102.059 kg) BMI 30.51 kg/m2 SpO2 98% EXAM: GENERAL: healthy, alert and no distress EYES: [...] no masses and bowel sounds normal MS: Swelling right lower extremity with mild varicosities SKIN: no suspicious lesions or rashes NEURO: Normal strength and tone, mentation intact and speech normal PSYCH: mentation appears normal, affect normal/bright ASSESSMENT/PLAN: 1. Routine general medical examination at a health care facility - Lipid panel reflex to direct LDL 2. H/O ulcerative colitis - loperamide (IMODIUM) 2 MG capsule; Take 3-4 capsules (6-8 mg) by mouth 3 times daily as needed fordiarrhea Dispense: 480 capsule; Refill: 12 3. Mild persistent asthma, uncomplicated Recommend Qvar daily, Combivent as needed, AAP updated. - beclomethasone (QVAR) 80 MCG/ACT Inhaler; Inhale 1 puff into the lungs 2 times daily Dispense: 1 Inhaler; Refill: 11 - Ipratropium-Albuterol (COMBIVENT RESPIMAT) 20-100 MCG/ACT inhaler; Inhale 1 puff into the lungs 4 times daily Not to exceed 6 doses per day. Dispense: 1 Inhaler; Refill: 11 4. Mild persistent asthma without complication 5. Hyperlipidemia LDL goal <160 6. Postthrombotic syndrome Uses for occasional pain, continue compression stockings. - oxyCODONE-acetaminophen (PERCOCET) 5-325 MG per tablet; Take 1-2 tablets by mouth every 6 hours asneeded for moderate to severe pain Dispense: 20 tablet; Refill: 0 - CBC with platelets - INR - Comprehensive metabolic panel - TSH with free T4 reflex 7. Bilateral low back pain without sciatica - oxyCODONE-acetaminophen (PERCOCET) 5-325 MG per tablet; Take 1-2 tablets by mouth every 6 hours asneeded for moderate to severe pain Dispense: 20 tablet; Refill: 0 8. Erectile dysfunction, unspecified erectile dysfunction type - sildenafil (VIAGRA) 50 MG tablet; Take 0.5-1 tablets (25-50 mg) by mouth daily as needed for erectile dysfunction Dispense: 6 tablet; Refill: 11 9. Anticardiolipin antibody positive regular exercise healthy diet/nutrition colon cancer screening prostate cancer screening BP Screening: Last 3 BP Readings: BP Readings from Last 3 Encounters: 05/04/15 124/80 05/27/14 130/90 06/22/14 131/92 The following was recommended to the patient: Re-screen BP within a year and recommended lifestyle modifications reports that he quit smoking about 8 years ago. His smoking use included Cigarettes. He has a 50 pack-year smoking history. He has never used smokeless tobacco. Estimated body mass index is 30.51 kg/(m^2) as calculated from the following: Height as of this encounter: 6' (1.829 m). Weight as of this encounter: 225 lb (102.059 kg). Weight management plan: Established an exercise regimen with the patient. Activity goal: 30 minutes 5 days a week. New exercise routine: cardiovascular workout on exercise equipment. Diet regimen was discussed and plan is self- directed dieting: reduce calories and reduce portions. Counseling Resources: ATP IV Guidelines Pooled Cohorts Equation Calculator FRAX Risk Assessment ICSI Preventive Guidelines Dietary Guidelines for Americans, 2010 USDA's MyPlate Froylan Louise MD [facility] ER ROLLER GRINDER OPERATOR Froylan Louise MD - 05/04/2015 9:06 AM CST Chief Complaint Patient presents with ??? Recheck Medication different pain medcations Initial BP 124/80 mmHg Pulse 78 Temp(Src) 98.1 ??F (36.7 ??C) (Oral) Ht 6' (1.829 m) Wt 225 lb (102.059 kg) BMI 30.51 kg/m2 SpO2 98% Estimated body mass index is 30.51 kg/(m^2) as calculated from the following: Height as of this encounter: 6' (1.829 m). Weight as of this encounter: 225 lb (102.059 kg). BP completed using cuff size: regular ER ROLLER GRINDER OPERATOR documented in this encounter Nursing Notes Berto Daniel CMA - 05/04/2015 9:06 AM CST Chief Complaint Patient presents with ??? Recheck Medication different pain medcations Initial BP 124/80 mmHg Pulse 78 Temp(Src) 98.1 ??F (36.7 ??C) (Oral) Ht 6' (1.829 m) Wt 225 lb (102.059 kg) BMI 30.51 kg/m2 SpO2 98% Estimated body mass index is 30.51 kg/(m^2) as calculated from the following: Height as of this encounter: 6' (1.829 m). Weight as of this encounter: 225 lb (102.059 kg). BP completed using cuff size: lorne Daniel CMA ER ROLLER GRINDER OPERATOR documented in this encounter Plan of Treatment Upcoming Encounters Date Type Specialty Care Team Description 05/20/2022 Lab Lab documented as of this encounter Procedures Procedure Name Priority Date/Time Associated Diagnosis Comme nts ASTHMA ACTION PLAN Routine 05/11/2015 7:44 AM RUBBER ROLLER GRINDER OPERATOR TSH WITH FREE T4 Routine 05/04/2015 9:39 Postthrombotic Result s for this REFLEX AM RUBBER ROLLER GRINDER OPERATOR syndrome procedure are i n the results section. INR Routine 05/04/2015 9:39 Postthrombotic Results fo r this AM RUBBER ROLLER GRINDER OPERATOR syndrome procedure are i n the results section. LIPID REFLEX TO Routine 05/04/2015 9:39 Routine general Result s for this DIRECT LDL PANEL AM RUBBER ROLLER GRINDER OPERATOR medical examination at [facility] are in a health care facility the r esults section. COMPREHENSIVE Routine 05/04/2015 9:39 Postthrombotic Results f or this METABOLIC PANEL AM RUBBER ROLLER GRINDER OPERATOR syndrome procedure ar e in the results section. CBC WITH PLATELETS Routine 05/04/2015 9:39 Postthrombotic Resu lts for this AM RUBBER ROLLER GRINDER OPERATOR syndrome procedure are i n the results section. documented in this encounter Results Lipid panel reflex to direct LDL (05/04/2015 9:39 AM RUBBER ROLLER GRINDER OPERATOR) athologist Signature Cholesterol 170 <200 mg/dL [facility] Comment: LDL Cholesterol is the primary guide to therapy. The NCEP recommends further evaluation of: patients with cholesterol greater than 200 mg/dL if additional risk facto rs are present, cholesterol greater than 240 mg/dL, triglycerides greater than 1 50 mg/dL, or HDL less than 40 mg/dL. Triglycerides 93 0 - 150 mg/dL [place] [facility] N[facility] HDL Cholesterol 51 >40 mg/dL [place] [facility] CS [facility] LDL Cholesterol Calculated 100 0 - 129 mg/dL [facility] Comment: LDL Cholesterol is the primary guide to therapy: LDL-cholesterol goal in high risk patients is <100 mg/dL and in very high risk patients is <70 mg/dL. VLDL-Cholesterol 19 0 - 30 mg/dL [place] Chastity [facility] Cholesterol/HDL Ratio 3.3 0.0 - 5.0 [facility] Specimen Anatomical Collection Method Collection Time Receive d Time (Source) Location / / Volume Laterality Blood specimen 05/04/2015 9:39 AM 015 9:44 (specimen) RUBBER ROLLER GRINDER OPERATOR AM RUBBER ROLLER GRINDER OPERATOR Froylan Louise MD LAB - BLOOD ORDERABLES Performing Organization Address City/[facility]/ZIP Code Phon e Number [facility] [address] [place] [id number] TSH with free T4 reflex (05/04/2015 9:39 AM RUBBER ROLLER GRINDER OPERATOR) athologist Signature TSH 1.67 0.40 - 4.00 [facility] mU/L [facility] Specimen Anatomical Collection Method Collection Time Receive d Time (Source) Location / / Volume Laterality Blood specimen 05/04/2015 9:39 AM 015 9:44 (specimen) RUBBER ROLLER GRINDER OPERATOR AM RUBBER ROLLER GRINDER OPERATOR Froylan Louise MD LAB - BLOOD ORDERABLES Performing Organization Address City/[facility]/ZIP Code Phon e Number [facility] [address] [place] [address] (ABNORMAL) Comprehensive metabolic panel (05/04/2015 9:39 AM RUBBER ROLLER GRINDER OPERATOR) [facility] Method Time Signature Sodium 137 133 - 144 [place] mmol/L [facility] Potassium 4.1 3.4 - 5.3 [place] mmol/L [facility] Chloride 104 94 - 109 [place] mmol/L [facility] Carbon Dioxide 27 20 - 32 [place] mmol/L [facility] Anion Gap 6 3 - 14 [place] mmol/L [facility] Glucose 120 (H) 70 - 99 [place] mg/dL [facility] Urea Nitrogen 18 7 - 30 [place] mg/dL [facility] Creatinine 0.79 0.66 - [place] 1.25 [facility]INICS mg/dL [facility] GFR Estimate >90 >60 [place] Non GFR Calc mL/min/1. CLINICS 7m2 [facility] GFR Estimate If >90 >60 [place] Black GFR Calc mL/min/1. CLIN ICS 7m2 [facility] Calcium 9.2 8.5 - [place] 10.1 [facility]INICS mg/dL [facility] Bilirubin Total 1.0 0.2 - 1.3 [place] mg/dL [facility] Albumin 3.7 3.4 - 5.0 [place] g/dL [facility] Protein Total 7.4 6.8 - 8.8 [place] g/dL [facility] Alkaline 92 40 - 150 [place] Phosphatase U/L [facility] ALT 32 0 - 70 [place] U/L [facility] AST 13 0 - 45 [place] U/L [facility] Specimen Anatomical Collection Method Collection Time Receive d Time (Source) Location / / Volume Laterality Blood specimen 05/04/2015 9:39 AM 015 9:44 (specimen) RUBBER ROLLER GRINDER OPERATOR AM RUBBER ROLLER GRINDER OPERATOR Froylan Louise MD LAB - BLOOD ORDERABLES Performing Organization Address City/State/ZIP Code Phon e Number [facility] [address] [place] [address] INR (05/04/2015 9:39 AM RUBBER ROLLER GRINDER OPERATOR) athologist Signature INR 1.03 0.86 - 1.14 [facility] Specimen Anatomical Collection Method Collection Time Receive d Time (Source) Location / / Volume Laterality Blood specimen 05/04/2015 9:39 AM 015 9:44 (specimen) RUBBER ROLLER GRINDER OPERATOR AM RUBBER ROLLER GRINDER OPERATOR Froylan Louise MD LAB - BLOOD ORDERABLES Performing Organization Address City/State/ZIP Code Phon e Number [facility] [address] [place] [address] [facility] CBC with platelets (05/04/2015 9:39 AM RUBBER ROLLER GRINDER OPERATOR) athologist Signature WBC 5.9 4.0 - 11.0 [place] 10e9/L [facility] RBC Count 4.75 4.4 - 5.9 [place] 10e12/L [facility] Hemoglobin 14.3 13.3 - [place] 17.7 g/dL [facility] Hematocrit 43.0 40.0 - [place] 53.0 % [facility] MCV 91 78 - 100 [place] fl [facility] MCH 30.1 26.5 - [place] 33.0 pg [facility] MCHC 33.3 31.5 - [place] 36.5 g/dL [facility] RDW 13.8 10.0 - [place] 15.0 % [facility] Platelet Count 213 150 - 450 [place] 10e9/L [facility] Specimen Anatomical Collection Method Collection Time Receive d Time (Source) Location / / Volume Laterality Blood specimen 05/04/2015 9:39 AM 015 9:44 (specimen) RUBBER ROLLER GRINDER OPERATOR AM RUBBER ROLLER GRINDER OPERATOR Froylan Louise MD LAB - BLOOD ORDERABLES Performing Organization Address City/State/ZIP Code Phon e Number [facility] [address] [place] [address] documented in this encounter Visit Diagnoses Diagnosis Routine general medical examination at a health care facility - Primary H/O ulcerative colitis Personal history of other diseases of di gestive system Mild persistent asthma, uncomplicated Unspecified asthma Mild persistent asthma without complicat ion Unspecified asthma Hyperlipidemia LDL goal <160 Other and unspecified hyperlipidemia Postthrombotic syndrome Postphlebetic syndrome without complicat ions Bilateral low back pain without sciatica Erectile dysfunction, unspecified erecti le dysfunction type Anticardiolipin antibody positive Other and unspecified nonspecific immuno logical findings documented in this encounter Care Teams Tail Sawyer Relationship Specialty Start Date End Date Froylan Louise MD PCP - General Family Practice 02/22/14 Froylan Louise MD PCP - Assigned PCP 03/13/14 08/25/18 Froylan Louise MD Assigned PCP 03/13/14 2 documented as of this encounter
--- OUTSIDE RECORDS SUMMARY | 2022-05-15 22:35 | XMS_ITS | Encounter Summary ---
:1955 Author Organization [facility] Address [address] [place] [address] Care Team Providers Name Role Phone Froylan Louise MD Primary Care Provider Unavailable Froylan Louise MD Unavailable Unavailable Froylan Louise MD Unavailable Unavailable Reason for Visit Reason Onset Date Comments Dental Problem 06/06/2015 Encounter Details Date Type Department Care Team Description 06/06/2015 Telephone [facility] Froylan Louise Ra, MD Dental Problem [address] [phone] Social History Tobacco Use [...] you attend voodoo or Patient refused 2020 jain services? Do [...] Encounter - Page, Esthela Conrad RN - 06/06/2015 3:15 PM CST Pt calling I am pretty sure I have an abscess starting Pt requesting antibiotic from PCP- Advised would have to be seen for this- Pt states he will go to [facility] Esthela Corea, RN SHORT ORDER documented in this encounter Plan of Treatment Upcoming Encounters Date Type Specialty Care Team Description 05/20/2022 Lab Lab documented as of this encounter Visit Diagnoses Not on filedocumented in this encounter Care Teams Metal Loader Relationship Specialty Start Date End Date Froylan Louise MD PCP - General Family Practice 02/22/14 Froylan Louise MD PCP - Assigned PCP 03/13/14 08/25/18 Froylan Louise MD Assigned PCP 03/13/14 2 documented as of this encounter
--- OUTSIDE RECORDS SUMMARY | 2022-05-15 22:35 | XMS_ITS | Encounter Summary ---
:1955 Author Organization [facility] Address [address] [place] [address] Care Team Providers Name Role Phone Froylan Louise MD Primary Care Provider Unavailable Froylan Louise MD Unavailable Unavailable Froylan Louise MD Unavailable Unavailable Reason for Visit Reason Onset Date Comments Refill Request 03/09/2015 albuterol Encounter Details Date Type Department Care Team Description 03/09/2015 Refill [facility] Froylan Louise Ra, Refill Request Chhaya VILLASEÑOR (albuterol) [address] [place] [phone] Social History Tobacco Use [...] you attend druze or Patient refused 2020 holiness services? Do [...] Telephone Encounter - Wendi Lindsay RN - 03/10/2015 9:55 AM CDT ACT can't be done on phone. Sent link by [employer] but pt not checking Please advise on refill Wendi Lindsay RN, BSN Telephone Encounter - Wendi Lindsay RN - 03/09/2015 9:43 AM CDT [employer] with ACT link sent Wendi Lindsay RN, BSN Telephone Encounter - Carlos Alberto Black - 03/09/2015 7:57 AM CDT Pending Prescriptions: Disp Refills albuterol (ALBUTEROL) 108 (90 BASE) MCG/A*1 Inha*11 Sig: Inhale 1-2 puffs into the lungs every 4 hours as needed Last Written Prescription Date: 03/04/2014 Last Fill Quantity: 1, # refills: 11 Last Office Visit with [facility] primary care provider): 05/27/2014 Future Office Visit: none Date of Last Asthma Action Plan Letter: Asthma Action Plan Q1 Year Topic Date Due ??? Asthma Action Plan 07/07/2014 Asthma Control Test: ACT Total Scores 03/04/2014 ACT TOTAL SCORE 25 ASTHMA ER VISITS 0 = None ASTHMA HOSPITALIZATIONS 0 = None Date of Last Spirometry Test: No results found for this or any previous visit. Carlos Alberto Black XRT documented in this encounter Plan of Treatment Upcoming Encounters Date Type Specialty Care Team Description 05/20/2022 Lab Lab documented as of this encounter Visit Diagnoses Diagnosis Asthma, mild intermittent, uncomplicated - Primary documented in this encounter Care Teams [employer] Relationship Specialty Start Date End Date Froylan Louise MD PCP - General Family Practice 02/22/14 Froylan Louise MD PCP - Assigned PCP 03/13/14 08/25/18 Froylan Louise MD Assigned PCP 03/13/14 2 documented as of this encounter
--- OUTSIDE RECORDS SUMMARY | 2022-05-15 22:35 | XMS_ITS | Encounter Summary ---
:1955 Author Organization [place] Address [address] [place] [address] Care Team Providers Name Role Phone Froylan Louise MD Primary Care Provider Unavailable Froylan Louise MD Unavailable Unavailable Froylan Louise MD Unavailable Unavailable Reason for Visit Reason Onset Date Comments Refill Request 01/02/2016 furosemide, cycloben zaprine Encounter Details Date Type Department Care Team Description [facility], Refill Request Chhaya VILLASEÑOR (furosemide, [id number] [facility] cyclobenzaprine) [place] [phone] Social History Tobacco Use [...] containing 4 or more times a w [place] 05/25/2021 alcohol? How many drinks containing alcohol [...] you attend jewish or Patient refused 2020 jain services? Do [...] Telephone Encounter - Wendi Lindsay RN - 01/02/2016 4:10 PM CDT Routing refill request to provider for review/approval because: Drug not on the [facility] refill protocol How many refills for lasix? Wendi Lindsay RN, BSN Telephone Encounter - Carlos Alberto Black - 01/02/2016 3:40 PM CDT Pending Prescriptions: Disp Refills cyclobenzaprine (FLEXERIL) 10 MG tablet 30 tab*2 Sig: Take 1 tablet (10 mg) by mouth 3 times daily as needed for muscle spasms furosemide (LASIX) 20 MG tablet 90 tab*0 Sig: Take 0.5-1 tablets by mouth. Take as needed for leg swelling. cycloben Last Written Prescription Date: 05/08/2015 Last Fill Quantity: 30, # refills: 2 Last Office Visit with [facility] or e-channel prescribing provider: Future Office visit: Routing refill request to provider for review/approval because: Drug not on the [facility] or e-channel refill protocol or controlled substance Furosemide Last Written Prescription Date: 10/18/2015 Last Fill Quantity: 90, # refills: 0 Last Office Visit with [facility] or e-channel prescribing provider: 05/04/2015 POTASSIUM Date Value Ref Range Status 05/04/2015 4.1 3.4 - 5.3 mmol/L Final CREATININE Date Value Ref Range Status 05/04/2015 0.79 0.66 - 1.25 mg/dL Final BP Readings from Last 3 Encounters: 11/14/15 145/91 05/04/15 124/80 05/27/14 130/90 Carlos Alberto Black XRT documented in this encounter Plan of Treatment Upcoming Encounters Date Type Specialty Care Team Description 05/20/2022 Lab Lab documented as of this encounter Visit Diagnoses Diagnosis Cramp of limb - Primary Postthrombotic syndrome Postphlebetic syndrome without complicat ions Peripheral edema Edema documented in this encounter Care Teams Eap Consultant Relationship Specialty Start Date End Date Froylan Louise MD PCP - General Family Practice 02/22/14 Froylan Louise MD PCP - Assigned PCP 03/13/14 08/25/18 Froylan Louise MD Assigned PCP 03/13/14 2 documented as of this encounter
--- OUTSIDE RECORDS SUMMARY | 2022-05-15 22:35 | XMS_ITS | Encounter Summary ---
:1955 Author Organization [place] Address [address] [place] [address] Care Team Providers Name Role Phone Froylan Louise MD Primary Care Provider Unavailable Froylan Louise MD Unavailable Unavailable Froylan Louise MD Unavailable Unavailable Reason for Visit Reason Onset Date Comments Refill Request 10/17/2015 furosemide (LASIX) 2 0 MG tablet Encounter Details Date Type Department Care Team Description 10/17/2015 Refill [facility] Froylan Louise Ra, Refill Request Chhaya VILLASEÑOR (furosemide (LASIX) [id number] MG tablet) [place] [address] Social History Tobacco Use [...] you attend tenriism or Patient refused 2020 mormonism services? Do [...] Telephone Encounter - Wendi Lindsay RN - 10/18/2015 8:32 AM CDT Prescription approved per [facility] Refill Protocol. Wendi Lindsay RN, BSN Telephone Encounter - Jazzy Soares - 10/17/2015 7:14 PM CDT Pending Prescriptions: Disp Refills furosemide (LASIX) 20 MG tablet 90 tab*0 Sig: Take 0.5-1 tablets by mouth. Take as needed for leg swelling. Last Written Prescription Date: 03/14/2015 Last Fill Quantity: 90, # refills: 0 Last Office Visit with [facility], [facility] or [facility] prescribing provider: 05/04/2015 POTASSIUM Date Value Ref Range Status 05/04/2015 4.1 3.4 - 5.3 mmol/L Final CREATININE Date Value Ref Range Status 05/04/2015 0.79 0.66 - 1.25 mg/dL Final BP Readings from Last 3 Encounters: 05/04/15 124/80 05/27/14 130/90 06/22/14 131/92 TYESHA Muñoz documented in this encounter Plan of Treatment Upcoming Encounters Date Type Specialty Care Team Description 05/20/2022 Lab Lab documented as of this encounter Visit Diagnoses Diagnosis Postthrombotic syndrome - Primary 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
--- OUTSIDE RECORDS SUMMARY | 2022-05-15 22:35 | XMS_ITS | Encounter Summary ---
:1955 Author Organization [place] Address [facility] [place] [address] Care Team Providers Name Role Phone Froylan Louise MD Primary Care Provider Unavailable Froylan Louise MD Unavailable Unavailable Froylan Louise MD Unavailable Unavailable Reason for Referral Consultation - Closed Specialty Diagnoses / Procedures Referred By Contact Refer red To Contact Diagnoses Venous stasis ulcer, right [place] [address] [facility] [place] [address] Referral ID Status Reason Start Date Expiration Date Visits Requ ested Visits Authorized [id number] Closed 01/24/2016 01/23/2017 1 1 Reason for Visit Reason Comments Wound Check Encounter Details Date Type Department Care Team Description 01/24/2016 Office Visit [facility] Froylan Louise Venous st asis ulcer, right (H) (Primary Dx); Clinic Chhaya Dubose MD Postthrombotic syndrome; [address] [facility] Varicose vein of leg; [place], [place] [phone] Social History Tobacco Use Types Packs/Day Years Used Date Smoking Tobacco: Former Cigarettes 2 25 Quit : 08/04/2006 Smokeless Tobacco: Never Comments: 2004 Alcohol Use Standard Drinks/Week Comments Yes 0 (1 standard drink = 0.6 oz pure alcoho l) 4 BEERS A WEEK Alcohol Habits Answer Date Recorded How often do you have a drink containing 4 or more times a w [place] 05/25/2021 alcohol? How many drinks containing alcohol [...] you attend yazidism or Patient refused 2020 quaker services? Do [...] Sign Reading Time Taken Comments Blood Pressure 126/78 01/24/2016 3:28 PM CDT Pulse 80 01/24/2016 3:28 PM CDT Temperature 37.1 ??C (98.8 ??F) 01/24/2016 3:28 PM CDT Respiratory Rate 16 01/24/2016 3:28 PM CDT Oxygen Saturation - - Inhaled Oxygen Concentration - - Weight 102.1 kg (225 lb 1.6 oz) 01/24/2016 3:28 PM CDT Height 182.9 cm (6') 01/24/2016 3:28 PM CDT Body Mass Index 30.53 01/24/2016 3:28 PM CDT documented in this encounter Progress Notes Froylan Louise MD - 01/24/2016 3:45 PM CDT SUBJECTIVE: Virgil Christine is a 60 year old male who presents to clinic today for the following health issues: Patient presents with: Wound Check Patient here for reevaluation of right leg ulceration. Patient with lateral malleolus ulceration present for several months up to 1 year with nonhealing. 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 Ulceration on right ankle without surrounding erythema or significant drainage. No fever. Patient Active Problem List Diagnosis ??? Anticardiolipin antibody positive ??? Mild persistent asthma ??? Health [facility] ? ? Hyperlipidemia LDL goal <160 ??? Personal history of DVT (deep vein thrombosis) ??? Status post unicompartmental knee replacement, right ??? H/O ulcerative colitis ??? Postthrombotic syndrome ??? Advanced directives, counseling/discussion (ACP) ??? Elevated fasting glucose ??? S/P colectomy ??? Venous stasis ulcer, right (H) Past Surgical History Procedure Laterality Date ??? Colostomy ??? [place] filter ??? Resection abdominal perineal ??? Arthroplasty knee unicompartment 08/20/2013 Procedure: ARTHROPLASTY KNEE UNICOMPARTMENT; Right Knee Uni Arthroplasty ; Surgeon: Jose Fonseca MD; Location: [facility] OR ??? Pouchoscopy N/A 06/22/2014 Procedure: POUCHOSCOPY; Surgeon: Chase Suazo MD; Location: [facility] ??? Orthopedic surgery Social History Substance Use Topics ??? Smoking status: Former Smoker -- 2.00 packs/day for 25 years Types: Cigarettes Quit date: 08/04/2006 ??? Smokeless tobacco: Never Used Comment: 2004 ??? Alcohol Use: Yes Comment: 4 BEERS A WEEK Family History Problem Relation Age of Onset ??? Diabetes Mother ROS: INTEGUMENTARY/SKIN: As noted above OBJECTIVE: BP 126/78 mmHg Pulse 80 Temp(Src) 98.8 ??F (37.1 ??C) (Oral) Resp 16 Ht 6' (1.829 m) Wt 225 lb 1.6 oz (102.105 kg) BMI 30.52 kg/m2Body mass index is 30.52 kg/(m^2). GENERAL APPEARANCE: alert and no distress SKIN: Right lower extremity with ulceration 1.5 x 2 cm lateral malleolus over areas of varicose veins lower extremity without significant surrounding erythema or drainage ASSESSMENT/PLAN: 1. Venous stasis ulcer, right (H) Discussed venous stasis ulcers likely secondary to varicose veins related to post-thrombotic syndrome. Recommend evaluation for treating varicose veins. This would be medical indication for vein treatment rather than cosmetic given a nonhealing lower extremity wound caused by varicose veins. - oxyCODONE-acetaminophen (PERCOCET) 5-325 MG per tablet; Take 1-2 tablets by mouth every 6 hours asneeded for moderate to severe pain Dispense: 20 tablet; Refill: 0 - mupirocin (BACTROBAN) 2 % ointment; Apply topically 3 times daily for 5 days Dispense: 22 g; Refill: 1 - VASCULAR SURGERY REFERRAL 2. Postthrombotic syndrome - furosemide (LASIX) 20 MG tablet; Take 0.5 tablets (10 mg) by mouth daily Take 0.5-1 tablets by mouth. Take as needed for leg swelling. Dispense: 90 tablet; Refill: 1 - order for DME; Equipment being ordered: compression stocking 2 pair knee high 20-30 mmHg Dispense:2 Units; Refill: 0 3. Varicose vein of leg - VASCULAR SURGERY REFERRAL 4. Peripheral edema - furosemide (LASIX) 20 MG tablet; Take 0.5 tablets (10 mg) by mouth daily Take 0.5-1 tablets by mouth. Take as needed for leg swelling. Dispense: 90 tablet; Refill: 1 Froylan Louise MD [facility] documented in this encounter Nursing Notes Hilda Gibson CMA - 01/24/2016 3:31 PM CDT Chief Complaint Patient presents with ??? Wound Check Initial BP 126/78 mmHg Temp(Src) 98.8 ??F (37.1 ??C) (Oral) Resp 16 Wt 225 lb 1.6 oz (102.105 kg) Estimated body mass index is 30.52 kg/(m^2) as calculated from the following: Height as of 16: 6' (1.829 m). Weight as of this encounter: 225 lb 1.6 oz (102.105 kg). Hilda Gibson CMA Health Maintenance- Reviewed. documented in this encounter Plan of Treatment Upcoming Encounters Date Type Specialty Care Team Description 05/20/2022 Lab Lab Pending Results Name Type Priority Associated Diagnoses Date/Ti ia VASCULAR SURGERY REFERRAL Referral Routine Venous stasis ulcer, right (H) 01/25/2016 Varicose vein of leg documented as of this encounter Visit Diagnoses Diagnosis Venous stasis ulcer, right - Primary Postthrombotic syndrome Postphlebetic syndrome without complicat ions Varicose vein of leg Asymptomatic varicose veins Peripheral edema Edema documented in this encounter Care Teams Ict Sales Representative Relationship Specialty Start Date End Date Froylan Louise MD PCP - General Family Practice 02/22/14 Froylan Louise MD PCP - Assigned PCP 03/13/14 08/25/18 Froylan Louise MD Assigned PCP 03/13/14 2 documented as of this encounter
--- OUTSIDE RECORDS SUMMARY | 2022-05-15 22:35 | XMS_ITS | Encounter Summary ---
:1955 Author Organization [place] Address [address] [place] [address] Care Team Providers Name Role Phone Froylan Louise MD Primary Care Provider Unavailable Froylan Louise MD Unavailable Unavailable Froylan Louise MD Unavailable Unavailable Reason for Visit Reason Onset Date Comments Other 04/03/2015 chills Encounter Details Date Type Department Care Team Description 04/03/2015 [facility] Froylan Louise Ra, MD Other (chills) [address] [phone] Social History Tobacco Use [...] you attend adventism or Patient refused 2020 jew services? Do [...] Encounter - Page, Esthela Conrad RN - 04/03/2015 2:15 PM CDT Pt calling Yesterday I got the chills deep done in my bones during the night fever up to 103. Today c/o I feel in a funk Temp going between 99-100. Raspy voice and TAYLOR. Advised rest, push fluids. Warm tea with honey. Warm salt water gargle for sore throat or throat lozenges. Tylenol not to exceed 4000 mg/24 hours or ibuprofen not to exceed 3200mg/24 hours. If not improving be seen in clinic. Pt expressed understanding and acceptance of the plan. Pt had no further questions at this time. Advised can call back to clinic at any time with concerns. Esthela Corea RN documented in this encounter Plan of Treatment Upcoming Encounters Date Type Specialty Care Team Description 05/20/2022 Lab Lab documented as of this encounter Visit Diagnoses Not on filedocumented in this encounter Care Teams Sorority Supervisor Relationship Specialty Start Date End Date Froylan Louise MD PCP - General Family Practice 02/22/14 Froylan Louise MD PCP - Assigned PCP 03/13/14 08/25/18 Froylan Louise MD Assigned PCP 03/13/14 2 documented as of this encounter
--- OUTSIDE RECORDS SUMMARY | 2022-05-15 22:35 | XMS_ITS | Encounter Summary ---
:1955 Author Organization [place] Address [address] [place] [address] Care Team Providers Name Role Phone Froylan Louise MD Primary Care Provider Unavailable Froylan Louise MD Unavailable Unavailable Froylan Louise MD Unavailable Unavailable Reason for Visit Reason Onset Date Comments Refill Request 05/07/2016 Encounter Details Date Type Department Care Team Description 05/06/2016 Refill [facility] Froylan Louise Ra, MD Refill Request [address] [address] Social History Tobacco [...] you attend jew or Patient refused 2020 yarsani services? Do [...] Encounter - Page, Esthela Conrad RN - 05/07/2016 3:20 PM CST Atrovent and albuterol Prescription approved per [facility] Refill Protocol.- Pt is not using the combivent I just didn't like that one so I went back to what I know works Esthela Corea RN Last Written Prescription Date: 03/08/16 Last Fill Quantity: 1, # refills: 3 Last Office Visit with [facility], [facility] or [facility] prescribing provider: 01/24/16 Future Office Visit: Date of Last Asthma [...] found for this or any previous visit. E[employer]OR [employer] documented in this encounter Plan of Treatment Upcoming Encounters Date Type Specialty Care Team Description 05/20/2022 Lab Lab documented as of this encounter Visit Diagnoses Diagnosis Mild persistent asthma without complicat ion - Primary Unspecified asthma documented in this encounter Care Teams Watermaster Relationship Specialty Start Date End Date Froylan Louise MD PCP - General Family Practice 02/22/14 Froylan Louise MD PCP - Assigned PCP 03/13/14 08/25/18 Froylan Louise MD Assigned PCP 03/13/14 2 documented as of this encounter
--- OUTSIDE RECORDS SUMMARY | 2022-05-15 22:35 | XMS_ITS | Encounter Summary ---
:1955 Author Organization [place] Address [address] [place] [address] Care Team Providers Name Role Phone Froylan Louise MD Primary Care Provider Unavailable Froylan Louise MD Unavailable Unavailable Froylan Louise MD Unavailable Unavailable Reason for Visit Reason Onset Date Comments Refill Request 03/17/2015 ipratropium (ATROVEN T HFA) 17 MCG/ACT inhaler Encounter Details Date Type Department Care Team Description [facility], Refill Request Chhaya VILLASEÑOR (ipratropium (ATROVENT [address] HFA) 17 MCG/ACT inhaler) [place] [address] Social History Tobacco Use [...] attend latter day or Patient refused 2020 restoration services? Do [...] Telephone Encounter - Wendi Lindsay RN - 03/17/2015 3:19 PM CDT Prescription approved per [facility] Refill Protocol. Wendi Lindsay RN, BSN Telephone Encounter - Carlos Alberto Black - 03/17/2015 3:06 PM CDT Pending Prescriptions: Disp Refills ipratropium (ATROVENT HFA) 17 MCG/ACT inh*1 Inha*11 Sig: Inhale 2 puffs into the lungs 4 times daily Last Written Prescription Date: 03/04/2014 Last Fill Quantity: 1, # refills: 11 Last Office Visit with [facility] primary care provider): 05/27/2014 Future Office Visit: Date of Last Asthma [...] encounter Visit Diagnoses Diagnosis Mild persistent asthma - Primary Unspecified asthma documented in this encounter Care Teams Parliamentary Counsel Relationship Specialty Start Date End Date Froylan Louise MD PCP - General Family Practice 02/22/14 Froylan Louise MD PCP - Assigned PCP 03/13/14 08/25/18 Froylan Louise MD Assigned PCP 03/13/14 2 documented as of this encounter
--- OUTSIDE RECORDS SUMMARY | 2022-05-15 22:35 | XMS_ITS | Encounter Summary ---
:1955 Author Organization [place] Address [address] [place] [address] Care Team Providers Name Role Phone Froylan Louise MD Primary Care Provider Unavailable Froylan Louise MD Unavailable Unavailable Froylan Louise MD Unavailable Unavailable Encounter Details Date Type Department Care Team Description 11/20/2015 Telephone [facility] Jackeline Soler, CINDY [address] [place] [address] Social History Tobacco Use Types Packs/Day Years [...] you attend hindu or Patient refused 2020 adventist services? Do [...] this encounter Miscellaneous Notes Telephone Encounter - Jackeline Soler RN - 11/20/2015 11:11 AM CDT Call Type: Triage Call Presenting Problem: Patient calls and states he needs to have some sutures out. Was hit in the eye area with a bungee cord and needs to have sutures removed. Advised to call clinic when open, or if cannot wait, try Urgent Care today. Triage Note: Guideline Title: Information Only Call; No Symptom Triage (Adult) Recommended Disposition: Call Provider When Office is Open Original Inclination: Wanted to speak with a nurse Override Disposition: Intended Action: See Dr/Make Appt Physician Contacted: No Requesting regular office appointment ? YES Sign(s) or symptom(s) associated with a diagnosed condition or with a new illness ? NO Requesting information about provider, services or community resources ? NO Call back to complete assessment/clarification of information from prior caller to complete triage ? NO Physician Instructions: Care Advice: documented in this encounter Plan of Treatment Upcoming Encounters Date Type Specialty Care Team Description 05/20/2022 Lab Lab documented as of this encounter Visit Diagnoses Not on filedocumented in this encounter Care Teams Branch Director Relationship Specialty Start Date End Date Froylan Louise MD PCP - General Family Practice 02/22/14 Froylan Louise MD PCP - Assigned PCP 03/13/14 08/25/18 Froylan Louise MD Assigned PCP 03/13/14 2 documented as of this encounter
--- OUTSIDE RECORDS SUMMARY | 2022-05-15 22:35 | XMS_ITS | Encounter Summary ---
:1955 Author Organization [place] Address [address] [place] [address] Care Team Providers Name Role Phone Froylan Louise MD Primary Care Provider Unavailable Froylan Louise MD Unavailable Unavailable Froylan Louise MD Unavailable Unavailable Reason for Visit Reason Onset Date Comments Refill Request 02/08/2016 zolpidem Encounter Details Date Type Department Care Team Description [facility], Refill Request Chhaya VILLASEÑOR (zolpidem) [address] [place] [address] Social History Tobacco Use [...] you attend sikhism or Patient refused 2020 catholic services? Do [...] Notes Telephone Encounter - Carolin Dawson - 02/13/2016 1:14 PM CDT Rx approved, fax to the [facility] in [facility] in [place], Pharmacy will notified patient when prescriptionis ready to be picked up. Carolin Dawson [place] Telephone Encounter - Froylan Louise MD - 02/13/2016 12:42 PM CDT Refilled. Telephone Encounter - Carlos Alberto Black - 02/12/2016 7:49 AM CDT Has this RX been sent to the pharmacy ? I have gotten the 3rd RX request from the pharmacy for this medication ? Carlos Alberto Black XRT Telephone Encounter - Esthela Corea RN - 02/08/2016 10:25 AM CDT Routing refill request to provider for review/approval because: Drug not on the [facility] refill protocol HEDIS NURSE checked this in not on list, no unaccounted for RX Esthela Corea RN Telephone Encounter - Carlos Alberto Black - 02/08/2016 7:52 AM CDT Pending Prescriptions: Disp Refills zolpidem (AMBIEN CR) 12.5 MG CR tablet 30 tab*0 Sig: Take 1 tablet (12.5 mg) by mouth nightly as needed for sleep Controlled Substance Refill Request for Zolpidem Problem List Complete: No PROVIDER TO CONSIDER COMPLETION OF PROBLEM LIST AND OVERVIEW/CONTROLLED SUBSTANCE AGREEMENT Last Written Prescription Date: 05/27/2014 Last Fill Quantity: 30, # refills: 0 Last Office Visit with [facility] primary care provider: 01/24/2016 Future Office visit: Next 5 appointments (look out 90 days) Feb 09, 2016 2:00 PM Return Visit with Esthlea Blevins MD [facility] [address] [facility] [address] Controlled substance agreement on file: No. Processing: Fax Rx [facility] HEDIS NURSE checked in past 6 months? No, route to CINDY Black XRT documented in this encounter Plan of Treatment Upcoming Encounters Date Type Specialty Care Team Description 05/20/2022 Lab Lab documented as of this encounter Visit Diagnoses Diagnosis Insomnia, unspecified type - Primary documented in this encounter Care Teams Car Coupler Relationship Specialty Start Date End Date Froylan Louise MD PCP - General Family Practice 02/22/14 Froylan Louise MD PCP - Assigned PCP 03/13/14 08/25/18 Froylan Louise MD Assigned PCP 03/13/14 2 documented as of this encounter
--- OUTSIDE RECORDS SUMMARY | 2022-05-15 22:35 | XMS_ITS | Encounter Summary ---
:1955 Author Organization [place] Address [address] [place] [address] Care Team Providers Name Role Phone Froylan Louise MD Primary Care Provider Unavailable Froylan Louise MD Unavailable Unavailable Froylan Louise MD Unavailable Unavailable Reason for Visit Reason Onset Date Comments Refill Request 03/14/2015 Flexeril, Lasix, Qva r, Loperamide Encounter Details Date Type Department Care Team Description 03/14/2015 Refill [facility] Froylan Louise Ra, Refill Request Chhaya VILLASEÑOR (Flexeril, Lasix, Qvar, [id number] [place] [address] Loperamide) [place] [address] Social History Tobacco Use [...] containing 4 or more times a w eklutna 05/25/2021 alcohol? How many drinks containing alcohol [...] Telephone Encounter - Wendi Lindsay RN - 03/14/2015 9:23 AM CDT Routing refill request to provider for review/approval because: Unable to reach pt for ACT due to copy right. Pt is not checking [employer] message either. Please advise on Qvar, Flexeril, and Imodium (not dx code attached for imodium) requests Prescription approved per [facility] Refill Protocol for lasix Wendi Lindsay RN, BSN Telephone Encounter - Black Carlos Alberto - 03/14/2015 8:39 AM CDT Pending Prescriptions: Disp Refills cyclobenzaprine (FLEXERIL) 10 MG tablet 30 tab*1 Sig: Take 1 tablet (10 mg) by mouth 3 times daily as needed for muscle spasms furosemide (LASIX) 20 MG tablet 90 tab*0 Sig: Take 0.5-1 tablets by mouth. Take as needed for leg swelling. beclomethasone (QVAR) 80 MCG/ACT Inhaler 1 Inha*11 Sig: Inhale 1 puff into the lungs 2 times daily loperamide (IMODIUM) 2 MG capsule 480 ca*12 Sig: Take 3-4 capsules (6-8 mg) by mouth 3 times daily Cyclobenzaprine Last Written Prescription Date: 10/03/2014 Last Fill Quantity: 30, # refills: 1 Last Office Visit with [facility] primary care provider: 05/27/2014 Future Office visit: none Routing refill request to provider for review/approval because: Drug not on the G refill protocol or controlled substance Furosemide Last Written Prescription Date: 12/22/2014 Last Fill Quantity: 90, # refills: 0 Last Office Visit with [facility] primary care provider: 05/27/2014 POTASSIUM Date Value Ref Range Status 05/27/2014 3.8 3.4 - 5.3 mmol/L Final CREATININE Date Value Ref Range Status 05/27/2014 0.85 0.66 - 1.25 mg/dL Final BP Readings from Last 3 Encounters: 05/27/14 130/90 06/22/14 131/92 03/04/14 132/80 Qvar Last Written Prescription Date: 03/04/2015 Last Fill Quantity: 1, # refills: 11 Last Office Visit with [facility] primary care provider: 03/04/2014 Loperamide Last Written Prescription Date: 03/04/2014 Last Fill Quantity: 480, # refills: 12 Last Office Visit with [facility] primary care provider: 05/27/2014 Future Office visit: none Routing refill request to provider for review/approval because: Drug not on the [facility] refill protocol or controlled substance Carlos Alberto Black XRT documented in this encounter Plan of Treatment Upcoming Encounters Date Type Specialty Care Team Description 05/20/2022 Lab Lab documented as of this encounter Visit Diagnoses Diagnosis Cramp of limb - Primary Postthrombotic syndrome Postphlebetic syndrome without complicat ions Peripheral edema Edema Mild persistent asthma, uncomplicated Unspecified asthma H/O ulcerative colitis Personal history of other diseases of di gestive system documented in this encounter Care Teams Geopolitics Teacher Relationship Specialty Start Date End Date Froylan Louise MD PCP - General Family Practice 02/22/14 Froylan Louise MD PCP - Assigned PCP 03/13/14 08/25/18 Froylan Louise MD Assigned PCP 03/13/14 2 documented as of this encounter
--- OUTSIDE RECORDS SUMMARY | 2022-05-15 22:35 | XMS_ITS | Encounter Summary ---
:1955 Author Organization [place] Address [facility] [place] [address] Care Team Providers Name Role Phone Froylan Louise MD Primary Care Provider Unavailable Froylan Louise MD Unavailable Unavailable Froylan Louise MD Unavailable Unavailable Reason for Visit Reason Onset Date Comments Refill Request 04/05/2016 zolpidem (AMBIEN CR) 12.5 MG CR tablet Encounter Details Date Type Department Care Team Description 04/05/2016 Refill [facility] Froylan Louise Ra, Refill Request (zolpidem Chhaya VILLASEÑOR (AMBIEN CR) 12.5 MG CR [id number] [facility] tablet) [place] [address] Social History Tobacco [...] you attend scientology or Patient refused 2020 anglican services? Do [...] Notes Telephone Encounter - Carolin Dawson - 04/05/2016 2:46 PM CDT Rx approved, fax to the [facility] in [facility] Samir Carbon Cleaner Telephone Encounter - Froylan Louise MD - 04/05/2016 1:42 PM CDT Refilled. Telephone Encounter - Brandon Eller - 04/05/2016 8:02 AM CDT zolpidem (AMBIEN CR) 12.5 MG CR tablet Last Written Prescription Date: 02-13-2016 Last Fill Quantity: 30, # refills: 0 Last Office Visit with [facility], [facility] or [facility] prescribing provider: 01-24-2016 Future Office visit: Routing refill request to provider for review/approval because: zolpidem (AMBIEN CR) 12.5 MG CR tablet documented in this encounter Plan of Treatment Upcoming Encounters Date Type Specialty Care Team Description 05/20/2022 Lab Lab documented as of this encounter Visit Diagnoses Diagnosis Insomnia, unspecified type - Primary documented in this encounter Care Teams Complex Case Manager Relationship Specialty Start Date End Date Froylan Louise MD PCP - General Family Practice 02/22/14 Froylan Louise MD PCP - Assigned PCP 03/13/14 08/25/18 Froylan Louise MD Assigned PCP 03/13/14 2 documented as of this encounter
--- OUTSIDE RECORDS SUMMARY | 2022-05-15 22:35 | XMS_ITS | Encounter Summary ---
:1955 Author Organization [place] Address [address] [place] [address] Care Team Providers Name Role Phone Froylan Louise MD Primary Care Provider Unavailable Froylan Louise MD Unavailable Unavailable Froylan Louise MD Unavailable Unavailable Reason for Visit Reason Onset Date Comments Refill Request 08/31/2015 viagra Encounter Details Date Type Department Care Team Description 08/31/2015 Telephone [facility] Froylan Louise Refi ll Request (viagra) [facility] Chhaya VILLASEÑOR [address] [place] [address] Social History Tobacco Use Types [...] you attend mu-ism or Patient refused 2020 adventist services? Do [...] this encounter Miscellaneous Notes Telephone Encounter - Mya Dixon RN - 09/08/2015 9:16 AM CDT Pt calls back. Advised of below. Telephone Encounter - Mya Dixon RN - 09/08/2015 8:58 AM CDT Called and left a message to call us back. Telephone Encounter - Froylan Louise MD - 09/08/2015 8:33 AM CDT Recommend viagra for ED initially. No effect on leg. Has history of DVT with post-thrombotic syndrome/varicose veins. This would not be affected by Viagra. Telephone Encounter - Wendi Lindsay RN - 09/05/2015 1:34 PM CDT Spoke with patient and he states he never took the viagra yet but he is now wondering if the viagra would effect his blood clot in his right lower leg. There is nothing on his PL that states he has this Wendi Lindsay RN, BSN Telephone Encounter - Wendi Lindsay RN - 09/05/2015 1:07 PM CDT [facility] ZEINA Harp RNN Telephone Encounter - Froylan Louise MD - 09/05/2015 1:03 PM CDT There is no daily viagra - cialis for daily use would be the only daily med. Can try if he did not have any side effects with viagra. Telephone Encounter - Wendi Lindsay RN - 08/31/2015 8:22 AM CST Pt calling and would like to know if he can do the daily viagra instead of the current rx he has. Please advise Wendi Lindsay RN, BSN ALMIC TECH documented in this encounter Plan of Treatment Upcoming Encounters Date Type Specialty Care Team Description 05/20/2022 Lab Lab documented as of this encounter Visit Diagnoses Not on filedocumented in this encounter Care Teams Auto Care Center Manager Relationship Specialty Start Date End Date Froylan Louise MD PCP - General Family Practice 02/22/14 Froylan Louise MD PCP - Assigned PCP 03/13/14 08/25/18 Froylan Louise MD Assigned PCP 03/13/14 2 documented as of this encounter
--- OUTSIDE RECORDS SUMMARY | 2022-05-15 22:35 | XMS_ITS | Encounter Summary ---
:1955 Author Organization [place] Address [address] [place] [address] Care Team Providers Name Role Phone Froylan Louise MD Primary Care Provider Unavailable Froylan Louise MD Unavailable Unavailable Froylan Louise MD Unavailable Unavailable Encounter Details Date Type Department Care Team Description 06/08/2016 Orders Only [facility] Hyp erlipidemia LDL goal <160; [facility] Elevated fasting glucose; [address] [facility] [place] [address] Social History Tobacco Use [...] containing 4 or more times a w resighini 05/25/2021 alcohol? How many drinks containing alcohol [...] you attend episcopal or Patient refused 2020 cheondoism services? Do [...] Diagnosis Comme nts LIPID REFLEX TO Routine 06/08/2016 10:22 Hyperlipidemia LDL Re sults for this DIRECT LDL PANEL AM LOG SNAKER goal <160 procedure a re in the results section. HEMOGLOBIN A1C Routine 06/08/2016 10:22 Elevated fasting Resul ts for this AM LOG SNAKER glucose procedure are i n the results section. COMPREHENSIVE Routine 06/08/2016 10:22 Elevated fasting Result s for this METABOLIC PANEL AM LOG SNAKER glucose procedure ar e in the results section. CBC WITH PLATELETS Routine 06/08/2016 10:22 Postthrombotic Res ults for this AM LOG SNAKER syndrome procedure are i n the results section. documented in this encounter Results CBC with platelets (06/08/2016 10:22 AM LOG SNAKER) athologist Signature WBC 5.3 4.0 - 11.0 [place] 10e9/L [facility] RBC Count 4.69 4.4 - 5.9 [place] 10e12/L [facility] Hemoglobin 14.2 13.3 - [place] 17.7 g/dL [facility] Hematocrit 43.3 40.0 - [place] 53.0 % [facility] MCV 92 78 - 100 [facility] MCH 30.3 26.5 - [place] 33.0 pg [facility] MCHC 32.8 31.5 - [place] 36.5 g/dL [facility] RDW 14.0 10.0 - [place] 15.0 % [facility] Platelet Count 202 150 - 450 [place] 10e9/L [facility] Specimen Anatomical Collection Method Collection Time Receive d Time (Source) Location / / Volume Laterality Blood specimen 06/08/2016 10:22 6 (specimen) AM LOG SNAKER 10:23 AM LOG SNAKER Froylan Louise MD LAB - BLOOD ORDERABLES Performing Organization Address City/State/ZIP Code Phon e Number [facility] [id number] [place] [address] Hemoglobin A1c (06/08/2016 10:22 AM LOG SNAKER) athologist Signature Hemoglobin A1C 5.5 4.3 - 6.0 [facility] Specimen Anatomical Collection Method Collection Time Receive d Time (Source) Location / / Volume Laterality Blood specimen 06/08/2016 10:22 6 (specimen) AM LOG SNAKER 10:23 AM LOG SNAKER Froylan Louise MD LAB - BLOOD ORDERABLES Performing Organization Address City/State/ZIP Code Phon e Number [facility] [id number] [place] [address] Comprehensive metabolic panel (06/08/2016 10:22 AM LOG SNAKER) [facility] gist Method Time Signature Sodium 142 133 - 144 [place] mmol/L [facility] Potassium 4.1 3.4 - 5.3 [place] mmol/L [facility] Chloride 106 94 - 109 [facility] mmol/L [facility] Carbon Dioxide 31 20 - 32 [place] mmol/L [facility] Anion Gap 5 3 - 14 [place] mmol/L [facility] Glucose 97 70 - 99 [place] mg/dL [facility] Urea Nitrogen 14 7 - 30 [place] mg/dL [facility] Creatinine 0.84 0.66 - [place] 1.25 CLINICS mg/dL [facility] GFR Estimate >90 >60 [place] Non GFR Calc mL/min/1. CLINICS 7m2 [place] GFR Estimate If >90 >60 [place] Black GFR Calc mL/min/1. CLIN ICS 7m2 [place] [facility] Calcium 8.9 8.5 - [place] 10.1 CLINICS mg/dL [facility] Bilirubin Total 0.9 0.2 - 1.3 [place] mg/dL [facility] Albumin 3.4 3.4 - 5.0 [place] g/dL [facility] Protein Total 6.9 6.8 - 8.8 [place] g/dL [facility] Alkaline 94 40 - 150 [place] Phosphatase U/L [facility] ALT 24 0 - 70 [place] U/L [facility] AST 16 0 - 45 [facility] U/L [facility] Specimen Anatomical Collection Method Collection Time Receive d Time (Source) Location / / Volume Laterality Blood specimen 06/08/2016 10:22 6 (specimen) AM LOG SNAKER 10:23 AM LOG SNAKER Froylan Louise MD LAB - BLOOD ORDERABLES Performing Organization Address City/State/ZIP Code Phon e Number [facility] [address] [place] [address] Lipid panel reflex to direct LDL (06/08/2016 10:22 AM LOG SNAKER) [facility] Method Time Signature Cholesterol 156 <200 [place] mg/dL [facility] Triglycerides 93 <150 [place] mg/dL [facility] HDL Cholesterol 45 >39 mg/dL [facility] LDL Cholesterol 92 <100 [place] Calculated mg/dL [facility] Comment: Desirable: <100 mg/dl Non HDL Cholesterol 111 <130 mg/dL [facility] Specimen Anatomical Collection Method Collection Time Receive d Time (Source) Location / / Volume Laterality Blood specimen 06/08/2016 10:22 6 (specimen) AM LOG SNAKER 10:23 AM LOG SNAKER Froylan Louise MD LAB - BLOOD ORDERABLES Performing Organization Address City/[facility]/ZIP Code Phon e Number 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
--- OUTSIDE RECORDS SUMMARY | 2022-05-15 22:35 | XMS_ITS | Encounter Summary ---
:1955 Author Organization [place] Address [address] [place] [address] Care Team Providers Name Role Phone Froylan Louise MD Primary Care Provider Unavailable Froylan Louise MD Unavailable Unavailable Froylan Louise MD Unavailable Unavailable Reason for Visit Reason Onset Date Comments Refill Request 06/03/2016 loperamide Encounter Details Date Type Department Care Team Description [facility], Refill Request Chhaya VILLASEÑOR (loperamide) [address] [place] [address] Social History Tobacco Use [...] you attend sikhism or Patient refused 2020 islam services? Do [...] Telephone Encounter - Wendi Lindsay RN - 06/03/2016 10:11 AM CST Routing refill request to provider for review/approval because: Drug dose warning Wendi Lindsay RN, BSN STRIAL REAL ESTATE AGENT Telephone Encounter - Carlos Alberto Black - 06/03/2016 10:10 AM CST Pending Prescriptions: Disp Refills loperamide (IMODIUM) 2 MG capsule 480 ca*12 Sig: Take 3-4 capsules (6-8 mg) by mouth 3 times daily as needed for diarrhea Last Written Prescription Date: 05/04/2015 Last Fill Quantity: 480, # refills: 12 Last Office Visit [place] [facility] or [facility] prescribing provider: 05/31/2016 Future Office visit: Routing refill request to provider for review/approval because: Drug not on the [facility] or [facility] refill protocol or controlled substance Carlos Alberto Black XRT STRIAL REAL ESTATE AGENT documented in this encounter Plan of Treatment Upcoming Encounters Date Type Specialty Care Team Description 05/20/2022 Lab Lab documented as of this encounter Visit Diagnoses Diagnosis H/O ulcerative colitis - Primary Personal history of other diseases of di gestive system documented in this encounter Care Teams Receiving Worker Relationship Specialty Start Date End Date Froylan Louise MD PCP - General Family Practice 02/22/14 Froylan Louise MD PCP - Assigned PCP 03/13/14 08/25/18 Froylan Louise MD Assigned PCP 03/13/14 2 documented as of this encounter
--- OUTSIDE RECORDS SUMMARY | 2022-05-15 22:35 | XMS_ITS | Encounter Summary ---
:1955 Author Organization [place] Address [address] [place] [address] Care Team Providers Name Role Phone Froylan Louise MD Primary Care Provider Unavailable Froylan Louise MD Unavailable Unavailable Froylan Louise MD Unavailable Unavailable Reason for Visit Reason Onset Date Comments Refill Request 05/02/2015 Loperamide Encounter Details Date Type Department Care Team Description [facility] Ra, Refill Request Chhaya VILLASEÑOR (Loperamide) [address] [place] [address] Social History Tobacco Use [...] containing 4 or more times a w atka 05/25/2021 alcohol? How many drinks containing alcohol [...] you attend mu-ism or Patient refused 2020 judaism services? Do [...] Telephone Encounter - Wendi Lindsay RN - 05/02/2015 8:57 AM CST Prescription approved per [facility] Refill Protocol. Wendi Lindsay RN, BSN EMIC COORDINATOR Telephone Encounter - Riane Mejia - 05/02/2015 8:21 AM CST Loperamide Last Written Prescription Date: 03/15/15 Last Fill Quantity: 480, # refills: 0 Last Office Visit with [facility] primary care provider: 07/19/14, Dileep Kendrick Future Office visit: Next 5 appointments (look out 90 days) May 04, 2015 9:00 AM Office Visit with Froylan Louise MD [facility] ([facility] [address] [place] [phone] Routing refill request to provider for review/approval because: Drug not on the [facility] refill protocol or controlled substance EMIC COORDINATOR documented in this encounter Plan of Treatment Upcoming Encounters Date Type Specialty Care Team Description 05/20/2022 Lab Lab documented as of this encounter Visit Diagnoses Diagnosis H/O ulcerative colitis - Primary Personal history of other diseases of di gestive system documented in this encounter Care Teams Working Manager Relationship Specialty Start Date End Date Froylan Louise MD PCP - General Family Practice 02/22/14 Froylan Louise MD PCP - Assigned PCP 03/13/14 08/25/18 Froylan Louise MD Assigned PCP 03/13/14 2 documented as of this encounter
--- OUTSIDE RECORDS SUMMARY | 2022-05-15 22:35 | XMS_ITS | Encounter Summary ---
:1955 Author Organization [place] Address [address] [place] [address] Care Team Providers Name Role Phone Froylan Louise MD Primary Care Provider Unavailable Froylan Louise MD Unavailable Unavailable Froylan Louise MD Unavailable Unavailable Reason for Visit Reason Onset Date Comments Refill Request 05/08/2015 cyclobenzaprine Encounter Details Date Type Department Care Team Description 05/08/2015 Refill [facility] Froylan Louise Ra, Refill Request Chhaya VILLASEÑOR (cyclobenzaprine) [id number] [place] [address] Social History Tobacco Use [...] Notes Telephone Encounter - Carlos Alberto Black 05/08/2015 2:07 PM CST Pending Prescriptions: Disp Refills cyclobenzaprine (FLEXERIL) 10 MG tablet 30 tab*1 Sig: Take 1 tablet (10 mg) by mouth 3 times daily as needed for muscle spasms Last Written Prescription Date: 03/14/2015 Last Fill Quantity: 30, # refills: 1 Last Office Visit with [facility] primary care provider: 05/04/2015 Future Office visit: Routing refill request to provider for review/approval because: Drug not on the [facility] refill protocol or controlled substance Carlos Alberto Black XRT MOSTAT MECHANIC documented in this encounter Plan of Treatment Upcoming Encounters Date Type Specialty Care Team Description 05/20/2022 Lab Lab documented as of this encounter Visit Diagnoses Diagnosis Cramp of limb - Primary documented in this encounter Care Teams Church Organist Relationship Specialty Start Date End Date Froylan Louise MD PCP - General Family Practice 02/22/14 Froylan Louise MD PCP - Assigned PCP 03/13/14 08/25/18 Froylan Louise MD Assigned PCP 03/13/14 2 documented as of this encounter
--- OUTSIDE RECORDS SUMMARY | 2022-05-15 22:35 | XMS_ITS | Encounter Summary ---
:1955 Author Organization [place] Address [address] [place] [address] Care Team Providers Name Role Phone Froylan Louise MD Primary Care Provider Unavailable Froylan Louise MD Unavailable Unavailable Froylan Louise MD Unavailable Unavailable Reason for Visit Reason Onset Date Comments Nurse Advice Line 05/08/2015 Ipratropium-Albutero l (COMBIVENT RESPIMAT) 20-100 MCG/ACT inhaler Encounter Details Date Type Department Care Team Description 05/08/2015 Telephone [facility] Froylan Luoise Nurs e Advice Line Clinic Chhaya VILLASEÑOR (Ipratropium-Albuterol [address] [facility] (COMBIVENT RESPIMAT) [place], [place] 20-100 MCG/ACT inhaler) [phone] Social History Tobacco Use Types Packs/Day Years Used Date Smoking Tobacco: Former Cigarettes 2 25 Quit : 08/04/2006 Smokeless Tobacco: Never Comments: 2004 Alcohol Use Standard Drinks/Week Comments Yes 0 (1 standard drink = 0.6 oz pure alcoho l) 4 BEERS A WEEK Alcohol Habits Answer Date Recorded How often do you have a drink containing 4 or more times a w [place] 05/25/2021 alcohol? How many drinks containing alcohol [...] you attend taoism or Patient refused 2020 jainism services? Do [...] Telephone Encounter - Wendi Lindsay RN - 05/08/2015 3:07 PM CST Spent over 10 minutes explaining to patient that he is to use his Qvar daily and the combivent only as needed and NOT TO USE atrovent or the albuterol inhaler. Pt states he will give it a week to see if it works otherwise he is going back to his atrovent and albuterol. Wendi Lindsay RN, BSN MOBILE ACCESSORIES SALESPERSON Telephone Encounter - Carolin Dawson - 05/08/2015 2:59 PM CST Patient is requesting to speak to Dr. Louise about the Ipratropium-Albuterol (COMBIVENT RESPIMAT) 20-100 MCG/ACT inhaler, patient is unsure he needs to start this inhaler if the other inhaler has been working. Carolin Dawson Gripper Installer MOBILE ACCESSORIES SALESPERSON documented in this encounter Plan of Treatment Upcoming Encounters Date Type Specialty Care Team Description 05/20/2022 Lab Lab documented as of this encounter Visit Diagnoses Not on filedocumented in this encounter Care Teams Client Experience Specialist Relationship Specialty Start Date End Date Froylan Louise MD PCP - General Family Practice 02/22/14 Froylan Louise MD PCP - Assigned PCP 03/13/14 08/25/18 Froylan Louise MD Assigned PCP 03/13/14 2 documented as of this encounter
--- OUTSIDE RECORDS SUMMARY | 2022-05-15 22:35 | XMS_ITS | Encounter Summary ---
:1955 Author Organization [place] Address [address] [place] [address] Care Team Providers Name Role Phone Froylan Louise MD Primary Care Provider Unavailable Froylan Louise MD Unavailable Unavailable Froylan Louise MD Unavailable Unavailable Reason for Visit Reason Onset Date Comments Refill Request 08/30/2015 triamcinolone (KENAL OG) 0.1 % cream Encounter Details Date Type Department Care Team Description 08/30/2015 [facility] Froylan Louise Ra, Refill Request Chhaya VILLASEÑOR (triamcinolone (KENALOG) [address] [facility] 0.1 % cream) [place] [address] Social History Tobacco Use [...] you attend jew or Patient refused 2020 worship services? Do [...] Encounter - Wendi Lindsay RN - 08/31/2015 8:06 AM CST Prescription approved per [facility] Refill Protocol. Wendi Lindsay RN, BSN TEGY SPECIALIST Telephone Encounter - Rosmery Eller - 08/30/2015 7:19 PM CST Triamcinolone (KENALOG) 0.1% cream Last Written Prescription Date: 03/04/14 Last Fill Quantity: 30 g, # refills: 3 Last Office Visit with [facility], [facility] or [facility] prescribing provider: 05/04/15 TEGY SPECIALIST documented in this encounter Plan of Treatment Upcoming Encounters Date Type Specialty Care Team Description 05/20/2022 Lab Lab documented as of this encounter Visit Diagnoses Diagnosis Lichen planus - Primary documented in this encounter Care Teams Financial Administration Officer Relationship Specialty Start Date End Date Froylan Louise MD PCP - General Family Practice 02/22/14 Froylan Louise MD PCP - Assigned PCP 03/13/14 08/25/18 Froylan Louise MD Assigned PCP 03/13/14 2 documented as of this encounter
--- OUTSIDE RECORDS SUMMARY | 2022-05-15 22:35 | XMS_ITS | Encounter Summary ---
:1955 Author Organization [place] Address [address] [place] [address] Care Team Providers Name Role Phone Froylan Louise MD Primary Care Provider Unavailable Froylan Louise MD Unavailable Unavailable Froylan Louise MD Unavailable Unavailable Reason for Visit Reason Onset Date Comments Refill Request 02/22/2015 sildenafil Encounter Details Date Type Department Care Team Description 02/22/2015 Refill [facility] Froylan Louise Ra, Refill Request Chhaya VILLASEÑOR (sildenafil) [address] [place] [address] Social History Tobacco Use [...] containing 4 or more times a w nikolski 05/25/2021 alcohol? How many drinks containing alcohol [...] you attend synagogue or Patient refused 2020 anglican services? Do [...] Telephone Encounter - Wendi Lindsay RN - 02/22/2015 9:41 AM CDT Prescription approved per [facility] Refill Protocol. Wendi Lindsay RN, BSN Telephone Encounter - Carlos Alberto Black - 02/22/2015 7:49 AM CDT Pending Prescriptions: Disp Refills sildenafil (VIAGRA) 50 MG tablet 6 tabl*12 Sig: Take 0.5-1 tablets (25-50 mg) by mouth daily as needed for erectile dysfunction Last Written Prescription Date: 07/07/2013 Last Fill Quantity: 6, # refills: 12 Last Office Visit with [facility] primary care provider: 05/27/2014 Carlos Alberto Black XRT documented in this encounter Plan of Treatment Upcoming Encounters Date Type Specialty Care Team Description 05/20/2022 Lab Lab documented as of this encounter Visit Diagnoses Diagnosis ED (erectile dysfunction) - Primary Impotence of organic origin documented in this encounter Care Teams Ribber Relationship Specialty Start Date End Date Froylan Louise MD PCP - General Family Practice 02/22/14 Froylan Louise MD PCP - Assigned PCP 03/13/14 08/25/18 Froylan Louise MD Assigned PCP 03/13/14 2 documented as of this encounter
--- OUTSIDE RECORDS SUMMARY | 2022-05-15 22:35 | XMS_ITS | Encounter Summary ---
:1955 Author Organization [facility] Address [address] [place] [id number] Care Team Providers Name Role Phone Froylan Louise MD Primary Care Provider Unavailable Froylan Louise MD Unavailable Unavailable Froylan Louise MD Unavailable Unavailable Reason for Visit Reason Onset Date Comments Refill Request 05/12/2016 Viagra 50MG Tablet Encounter Details Date Type Department Care Team Description 05/12/2016 Refill [facility] Froylan Louise Ra, Refill Request (Sommer Shaver MD 50MG Tablet) [address] [place] [address] Social History Tobacco Use [...] attend oriental orthodox or Patient refused 2020 adventist services? Do [...] Telephone Encounter - Wendi Lindsay RN - 05/13/2016 10:37 AM CST Medication is being filled for 1 time refill only due to: Patient needs to be seen because due for px. Wendi Lindsay RN, BSN ER OPERATOR ASBESTOS SHINGLE Telephone Encounter - Arleen Vidal RRT - 05/12/2016 2:48 PM CST Viagra 50MG Tablet Last Written Prescription Date: 05/04/2015 Last Fill Quantity: 6, # refills: 11 Last Office Visit with [facility] or [facility] prescribing provider: 01/24/2016 ER OPERATOR ASBESTOS SHINGLE documented in this encounter Plan of Treatment Upcoming Encounters Date Type Specialty Care Team Description 05/20/2022 Lab Lab documented as of this encounter Visit Diagnoses Diagnosis Erectile dysfunction, unspecified erecti le dysfunction type - Primary documented in this encounter Care Teams Data Base Administrator Relationship Specialty Start Date End Date Froylan Louise MD PCP - General Family Practice 02/22/14 Froylan Louise MD PCP - Assigned PCP 03/13/14 08/25/18 Froylan Louise MD Assigned PCP 03/13/14 2 documented as of this encounter
--- OUTSIDE RECORDS SUMMARY | 2022-05-15 22:35 | XMS_ITS | Encounter Summary ---
:1955 Author Organization [facility] Address [address] [place] [address] Care Team Providers Name Role Phone Froylan Louise MD Primary Care Provider Unavailable Froylan Louise MD Unavailable Unavailable Froylan Louise MD Unavailable Unavailable Reason for Visit Reason Onset Date Comments Nurse Advice Line 07/24/2015 Encounter Details Date Type Department Care Team Description 07/24/2015 Telephone [facility] Froylan Louise Ra, MD Nurse Advice Line [address] [address] Social History Tobacco Use [...] Encounter - Page, Esthela Conrad RN - 07/24/2015 2:46 PM CST Pt advised to call and ask insurance co about need for referral- Would recommend asking about ENT specialty Care or ENT Clinic- If referral needed pt can call back to clinic. Esthela Corea RN CS PROGRAM OFFICER Telephone Encounter - Wendi Lindsay RN - 07/24/2015 2:40 PM CST Pt calling to get a referral to see a provider for ringing in his ears. His friend told him of a provider at [facility] but RN cannot find the provider with the spelling he is giving. Pt states he had teeth pulls and his jaw has now moved forward causing a lot of ringing and his friend had this same thingand saw a provider who worked miracles He would like a referral but will call back with the name and number of the provider Wendi Lindsay RN, BSN CS PROGRAM OFFICER documented in this encounter Plan of Treatment Upcoming Encounters Date Type Specialty Care Team Description 05/20/2022 Lab Lab documented as of this encounter Visit Diagnoses Not on filedocumented in this encounter Care Teams Apprentice/Lineman Relationship Specialty Start Date End Date Froylan Louise MD PCP - General Family Practice 02/22/14 Froylan Louise MD PCP - Assigned PCP 03/13/14 08/25/18 Froylan Louise MD Assigned PCP 03/13/14 2 documented as of this encounter
--- OUTSIDE RECORDS SUMMARY | 2022-05-15 22:35 | XMS_ITS | Encounter Summary ---
:1955 Author Organization [facility] Address [address] [place] [address] Care Team Providers Name Role Phone Froylan Louise MD Primary Care Provider Unavailable Froylan Louise MD Unavailable Unavailable Froylan Louise MD Unavailable Unavailable Reason for Visit Reason Comments Physical Encounter Details Date Type Department Care Team Description 05/31/2016 Office Visit [facility] Froylan Louise Encounter for routine adult health examination without abnormal findings (Primary Dx); Clinic Chhaya Dubose MD Postthrombotic syndrome; [address] [facility] Peripheral edema; [place], [place] Mild persisten t asthma without complication; [id number] Hyperlipidemia LDL goal <160 ; [phone] Personal histor y of DVT (deep vein thrombosis); H/O ulcerative colitis; Venous stasis u lcer, right (H); Insomnia, unspe cified type; Mild persistent asthma, uncomplicated; Erectile dysfun ction, unspecified erectile dysfunction type; Elevated fastin g glucose; Other ulcerativ e colitis without complication (H) Social History Tobacco Use Types Packs/Day Years Used Date Smoking Tobacco: Former Cigarettes 2 25 Quit : 08/04/2006 Smokeless Tobacco: Never Comments: 2004 Alcohol Use Standard Drinks/Week Comments Yes 0 (1 standard drink = 0.6 oz pure alcoho l) 4 BEERS A WEEK Alcohol Habits Answer Date Recorded How often do you have a drink containing 4 or more times a w [place] 05/25/2021 alcohol? How many drinks containing [...] you attend adventist or Patient refused 2020 restoration services? Do [...] Sign Reading Time Taken Comments Blood Pressure 126/82 05/31/2016 2:01 PM EMPLOYMENT DIRECTOR Pulse 63 05/31/2016 2:01 PM EMPLOYMENT DIRECTOR Temperature 36.7 ??C (98 ??F) 05/31/2016 2:01 PM EMPLOYMENT DIRECTOR Respiratory Rate - - Oxygen Saturation 97% 05/31/2016 2:01 PM EMPLOYMENT DIRECTOR Inhaled Oxygen Concentration - - Weight 103 kg (227 lb) 05/31/2016 2:01 PM EMPLOYMENT DIRECTOR Height 182.9 cm (6') 05/31/2016 2:01 PM EMPLOYMENT DIRECTOR Body Mass Index 30.79 05/31/2016 2:01 PM EMPLOYMENT DIRECTOR documented in this encounter Patient Instructions Patient InstructionsHidla Gibson CMA - 05/31/2016 2:02 PM CST Preventive Health Recommendations Male Ages [...] instead of white grains and rice. ??? Talk to your provider about Calcium and Vitamin D. Lifestyle ??? Exercise [...] eye doctor every 1 to 2 years. ??? OYMENT DIRECTOR documented in this encounter Progress Notes Froylan Louise MD - 05/31/2016 2:02 PM CST SUBJECTIVE: CC: Virgil Christine is an 60 year old male who presents for preventative health visit. Healthy Habits: ?? Do you get at least three servings of calcium containing foods daily (dairy, green leafy vegetables, etc.)? yes ?? Amount of exercise or daily activities, outside of work: 7 day(s) per week ?? Problems taking medications regularly No ?? Medication side effects: No ?? Have you had an eye exam in the past two years? yes ?? Do you see a dentist twice per year? yes Do you have sleep apnea, excessive snoring or daytime drowsiness?yes Today's PHQ-2 Score: PHQ-2 (??1999 Pfizer) 01/24/2016 05/04/2015 Q1: Little interest or pleasure in doing things 0 0 Q2: Feeling down, depressed or hopeless 0 0 PHQ-2 Score 0 0 Abuse: Current or Past(Physical, Sexual or Emotional)- No Do you feel safe in your environment - Yes Social History Substance Use Topics ??? Smoking status: Former Smoker -- 2.00 packs/day for 25 years Types: Cigarettes Quit date: 08/04/2006 ??? Smokeless tobacco: Never Used Comment: 2004 ??? Alcohol Use: Yes Comment: 4 BEERS A WEEK The patient does not drink >3 drinks per day nor >7 drinks per week. Last PSA: PSA Date Value Ref Range Status 07/07/2013 0.45 0 - 4 ug/L Final Recent Labs Lab Test 05/04/15 0939 06/18/14 0803 CHOL 170 197 HDL 51 45 LDL 100 110 TRIG 93 211* CHOLHDLRATIO 3.3 4.4 Reviewed orders with patient. Reviewed health maintenance and updated orders accordingly - Yes All Histories reviewed and updated in [facility]. Past Medical History Diagnosis Date ??? Unspecified hemorrhoids without mention of complication Hemorrhoids ??? Sleep apnea NOT BEING TREATED FOR THIS. ??? DVT (deep venous thrombosis) (H) RIGHT LEG AFTER COLON SURGERY. ??? Ulcerative colitis (H) Had Colectomy ??? Arthritis ??? Personal history of DVT (deep vein thrombosis) 08/17/2013 ??? COPD (chronic obstructive pulmonary disease) (H) Past Surgical History Procedure Laterality Date ??? Colostomy ??? Nicola filter ??? Resection abdominal perineal ??? Arthroplasty knee unicompartment 08/20/2013 Procedure: ARTHROPLASTY KNEE UNICOMPARTMENT; Right Knee Uni Arthroplasty ; Surgeon: Jose Fonseca MD; Location: [facility] OR ??? Pouchoscopy N/A 06/22/2014 Procedure: POUCHOSCOPY; Surgeon: Chase Suazo MD; Location: [facility] ??? Orthopedic surgery ROS: C: NEGATIVE for fever, chills, change in weight I: NEGATIVE for worrisome rashes, moles or lesions E: NEGATIVE for vision changes or irritation ENT: NEGATIVE for ear, mouth and throat problems R: NEGATIVE for significant cough or SOB CV: NEGATIVE for chest pain, palpitations or change in peripheral edema GI: NEGATIVE for nausea, abdominal pain, heartburn, or change in bowel habits male: negative for dysuria, hematuria, decreased urinary stream, erectile dysfunction, urethral discharge M: NEGATIVE for significant arthralgias or myalgia N: NEGATIVE for weakness, dizziness or paresthesias P: NEGATIVE for changes in mood or affect Problem list, Medication list, Allergies, and Medical/Social/Surgical histories reviewed in [facility] andupdated as appropriate. OBJECTIVE: Temp(Src) 98 ??F (36.7 ??C) (Oral) Ht 6' (1.829 m) Wt 227 lb (102.967 kg) BMI 30.78 kg/m2 EXAM: GENERAL: healthy, alert and no distress [...] or S4, no murmur, click or rub, and peripheral pulses strong, right leg 2+ peripheral edema ABDOMEN: soft, nontender, no hepatosplenomegaly, no masses and bowel sounds normal (male): normal male genitalia without lesions or urethral discharge, no hernia MS: no gross musculoskeletal defects noted, no edema SKIN: no suspicious lesions or rashes, improvement in right leg venous stasis ulcer NEURO: Normal strength and tone, mentation intact and speech normal PSYCH: mentation appears normal, affect normal/bright ASSESSMENT/PLAN: 1. Encounter for routine adult health examination without abnormal findings 2. Postthrombotic syndrome Continue Lasix as needed, compression stocking, elevation, horse chestnut seed. - furosemide (LASIX) 20 MG tablet; Take 0.5 tablets (10 mg) by mouth daily Take 0.5-1 tablets by mouth. Take as needed for leg swelling. Dispense: 90 tablet; Refill: 3 - CBC with platelets; Future 3. Peripheral edema - furosemide (LASIX) 20 MG tablet; Take 0.5 tablets (10 mg) by mouth daily Take 0.5-1 tablets by mouth. Take as needed for leg swelling. Dispense: 90 tablet; Refill: 3 4. Mild persistent asthma without complication - albuterol (PROAIR HFA/PROVENTIL HFA/VENTOLIN HFA) 108 (90 BASE) MCG/ACT Inhaler; Inhale 2 puffs into the lungs every 6 hours as needed for shortness of breath / dyspnea or wheezing Dispense: 3 Inhaler; Refill: 3 5. Hyperlipidemia LDL goal <160 - Lipid panel reflex to direct LDL; Future 6. Personal history of DVT (deep vein thrombosis) 7. H/O ulcerative colitis 8. Venous stasis ulcer, right (H) - oxyCODONE-acetaminophen (PERCOCET) 5-325 MG per tablet; Take 1-2 tablets by mouth every 6 hours asneeded for moderate to severe pain Dispense: 20 tablet; Refill: 0 9. Insomnia, unspecified type Continue current medication. - zolpidem (AMBIEN CR) 12.5 MG CR tablet; Take 1 tablet (12.5 mg) by mouth nightly as needed for sleep Dispense: 30 tablet; Refill: 2 10. Mild persistent asthma, uncomplicated - beclomethasone (QVAR) 80 MCG/ACT Inhaler; Inhale 2 puffs into the lungs 2 times daily Dispense: 3 Inhaler; Refill: 3 11. Erectile dysfunction, unspecified erectile dysfunction type - sildenafil (REVATIO/VIAGRA) 50 MG cap/tab; Take 0.5-1 tablets (25-50 mg) by mouth daily as needed for erectile dysfunction Dispense: 6 tablet; Refill: 3 12. Elevated fasting glucose - Comprehensive metabolic panel; Future - Hemoglobin A1c; Future 13. Other ulcerative colitis without complication (H) Status post colectomy. COUNSELING: Reviewed preventive health counseling, as reflected in patient instructions Special attention given to: Regular exercise Healthy diet/nutrition Colon cancer screening Prostate cancer screening Discussed risk and benefit of prostate cancer screening with PSA testing including benefit of early detection and risk of unnecessary biopsy and patient anxiety and complications of treatment on cancerthat may not have affected patient's health. Discussed recommendations from USPSTF. Patient declinesPSA testing at this time. reports that he quit smoking about 9 years ago. His smoking use included Cigarettes. He has a 50 pack-year smoking history. He has never used smokeless tobacco. Estimated body mass index is 30.78 kg/(m^2) as calculated from the following: Height as of this encounter: 6' (1.829 m). Weight as of this encounter: 227 lb (102.967 kg). Weight management plan: Discussed healthy diet and exercise guidelines and patient will follow up in12 months in clinic to re-evaluate. Counseling Resources: ATP IV Guidelines Pooled Cohorts Equation Calculator FRAX Risk Assessment ICSI Preventive Guidelines Dietary Guidelines for Americans, 2009 USDA's MyPlate ASA Prophylaxis Lung CA Screening Froylan Louise MD [facility] OYMENT DIRECTOR documented in this encounter Nursing Notes Hilda Gibson, KAROL - 05/31/2016 2:04 PM CST Chief Complaint Patient presents with ??? Physical Initial BP 126/82 mmHg Pulse 63 Temp(Src) 98 ??F (36.7 ??C) (Oral) Ht 6' (1.829 m) Wt 227 lb(102.967 kg) BMI 30.78 kg/m2 SpO2 97% Estimated body mass index is 30.78 kg/(m^2) as calculated from the following: Height as of this encounter: 6' (1.829 m). Weight as of this encounter: 227 lb (102.967 kg). Hilda Gibson CMA Health Maintenance- Reviewed. OYMENT DIRECTOR documented in this encounter Plan of Treatment Upcoming Encounters Date Type Specialty Care Team Description 05/20/2022 Lab Lab documented as of this encounter Results CBC with platelets (06/08/2016 10:22 AM EMPLOYMENT DIRECTOR) athologist Signature WBC 5.3 4.0 - 11.0 [place] 10e9/L [facility] RBC Count 4.69 4.4 - 5.9 [place] 10e12/L [facility] Hemoglobin 14.2 13.3 - [place] 17.7 g/dL [facility] Hematocrit 43.3 40.0 - [place] 53.0 % [facility] MCV 92 78 - 100 [facility] MCH 30.3 26.5 - [place] 33.0 pg [facility] MCHC 32.8 31.5 - [place] 36.5 g/dL [facility] RDW 14.0 10.0 - [place] 15.0 % [facility] Platelet Count 202 150 - 450 [place] 10e9/L [facility] Specimen Anatomical Collection Method Collection Time Receive d Time (Source) Location / / Volume Laterality Blood specimen 06/08/2016 10:22 6 (specimen) AM EMPLOYMENT DIRECTOR 10:23 AM EMPLOYMENT DIRECTOR Froylan Louise MD LAB - BLOOD ORDERABLES Performing Organization Address City/State/ZIP Code Phon e Number [facility] [id number] [place] [address] Hemoglobin A1c (06/08/2016 10:22 AM EMPLOYMENT DIRECTOR) athologist Signature Hemoglobin A1C 5.5 4.3 - 6.0 [facility] Specimen Anatomical Collection Method Collection Time Receive d Time (Source) Location / / Volume Laterality Blood specimen 06/08/2016 10:22 6 (specimen) AM EMPLOYMENT DIRECTOR 10:23 AM EMPLOYMENT DIRECTOR Froylan Louise MD LAB - BLOOD ORDERABLES Performing Organization Address City/State/ZIP Code Phon e Number [facility] [address] [place] [address] Comprehensive metabolic panel (06/08/2016 10:22 AM EMPLOYMENT DIRECTOR) [facility] Method Time Signature Sodium 142 133 - 144 [place] mmol/L [facility] Potassium 4.1 3.4 - 5.3 [place] mmol/L [facility] Chloride 106 94 - 109 [place] mmol/L [facility] Carbon Dioxide 31 20 - 32 [place] mmol/L [facility] Anion Gap 5 3 - 14 [place] mmol/L [facility] Glucose 97 70 - 99 [place] mg/dL [facility] Urea Nitrogen 14 7 - 30 [place] mg/dL [facility] Creatinine 0.84 0.66 - [facility] 1.25 CLINICS mg/dL [facility] GFR Estimate >90 >60 [place] Non GFR Calc mL/min/1. CLINICS 7m2 [place] GFR Estimate If >90 >60 [place] Black GFR Calc mL/min/1. CLIN ICS 7m2 [facility] Calcium 8.9 8.5 - [place] 10.1 CLINICS mg/dL [facility] Bilirubin Total 0.9 0.2 - 1.3 [place] mg/dL [facility] Albumin 3.4 3.4 - 5.0 [facility] g/dL [facility] Protein Total 6.9 6.8 - 8.8 [place] g/dL [facility] Alkaline 94 40 - 150 [place] Phosphatase U/L [facility] ALT 24 0 - 70 [place] U/L [facility] AST 16 0 - 45 [facility] U/L [facility] Specimen Anatomical Collection Method Collection Time Receive d Time (Source) Location / / Volume Laterality Blood specimen 06/08/2016 10:22 6 (specimen) AM EMPLOYMENT DIRECTOR 10:23 AM EMPLOYMENT DIRECTOR Froylan Louise MD LAB - BLOOD ORDERABLES Performing Organization Address City/[facility]/ZIP Code Phon e Number [facility] [address], [place] [address] Lipid panel reflex to direct LDL (06/08/2016 10:22 AM EMPLOYMENT DIRECTOR) [facility] Method Time Signature Cholesterol 156 <200 [place] mg/dL [facility] Triglycerides 93 <150 [place] mg/dL [facility] HDL Cholesterol 45 >39 mg/dL [facility] LDL Cholesterol 92 <100 [place] Calculated mg/dL [facility] Comment: Desirable: <100 mg/dl Non HDL Cholesterol 111 <130 mg/dL [facility] Specimen Anatomical Collection Method Collection Time Receive d Time (Source) Location / / Volume Laterality Blood specimen 06/08/2016 10:22 6 (specimen) AM EMPLOYMENT DIRECTOR 10:23 AM EMPLOYMENT DIRECTOR Froylan Louise MD LAB - BLOOD ORDERABLES Performing Organization Address 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 Peripheral edema Edema Mild persistent asthma without complicat ion Unspecified asthma Hyperlipidemia LDL goal <160 Other and unspecified hyperlipidemia Personal history of DVT (deep vein throm bosis) Personal history of venous thrombosis an d embolism H/O ulcerative colitis Personal history of other diseases of di gestive system Venous stasis ulcer, right Insomnia, unspecified type Mild persistent asthma, uncomplicated Unspecified asthma Erectile dysfunction, unspecified erecti le dysfunction type Elevated fasting glucose Impaired fasting glucose Other ulcerative colitis without complic ation (H) documented in this encounter Care Teams Director Of Rooms Relationship Specialty Start Date End Date Froylan Louise MD PCP - General Family Practice 02/22/14 Froylan Louise MD PCP - Assigned PCP 03/13/14 08/25/18 Froylan Louise MD Assigned PCP 03/13/14 2 documented as of this encounter
--- OUTSIDE RECORDS SUMMARY | 2022-05-15 22:35 | XMS_ITS | Encounter Summary ---
:1955 Author Organization [facility] Address [address] [place] [address] Care Team Providers Name Role Phone Froylan Louise MD Primary Care Provider Unavailable Froylan Louise MD Unavailable Unavailable Froylan Louise MD Unavailable Unavailable Reason for Visit Reason Onset Date Comments Erroneous encounter-disregard 05/31/2016 Encounter Details Date Type Department Care Team Description 05/31/2016 [facility] Froylan Louise Ra, Erroneous Chhaya VILLASEÑOR encounter-disregard [id number] [place] [address] Social History Tobacco Use [...] containing 4 or more times a w [place] 05/25/2021 alcohol? How many drinks containing alcohol [...] you attend episcopal or Patient refused 2020 restorationism services? Do [...] system documented in this encounter Care Teams Pedorthist Relationship Specialty Start Date End Date Froylan Louise MD PCP - General Family Practice 02/22/14 Froylan oLuise MD PCP - Assigned PCP 03/13/14 08/25/18 Froylan Louise MD Assigned PCP 03/13/14 2 documented as of this encounter
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
--- OUTSIDE RECORDS SUMMARY | 2022-05-15 22:35 | XMS_ITS | Encounter Summary ---
:1955 Author Organization [place] Address [address] [place] [id number] Care Team Providers Name Role Phone Froylan Louise MD Primary Care Provider Unavailable Froylan Louise MD Unavailable Unavailable Froylan Louise MD Unavailable Unavailable Reason for Visit Reason Onset Date Comments Refill Request 05/17/2016 beclomethasone Encounter Details Date Type Department Care Team Description [facility], Refill Request Chhaya VILLASEÑOR (beclomethasone ) [address] [place] [address] Social History Tobacco Use [...] you attend moravian or Patient refused 2020 lutheran services? Do [...] Telephone Encounter - Wendi Lindsay RN - 05/17/2016 3:24 PM CST Medication is being filled for 1 time refill only due to: Patient needs to be seen because it has been more than one year since last visit. Wendi Lindsay RN, BSN R Telephone Encounter - Carlos Alberto Black - 05/17/2016 3:20 PM CST Pending Prescriptions: Disp Refills beclomethasone (QVAR) 80 MCG/ACT Inhaler 1 Inha*11 Sig: Inhale 1 puff into the lungs 2 times daily Last Written Prescription Date: 05/04/2015 Last Fill Quantity: 1, # refills: 11 [place] [facility] [place] [facility] prescribing provider: 05/04/2015 Future Office Visit: Date of Last Asthma [...] any previous visit. Carlos Alberto Black XRT R documented in this encounter Plan of Treatment Upcoming Encounters Date Type Specialty Care Team Description 05/20/2022 Lab Lab documented as of this encounter Visit Diagnoses Diagnosis Mild persistent asthma, uncomplicated - Primary Unspecified asthma documented in this encounter Care Teams Bean Sprout Grower Relationship Specialty Start Date End Date Froylan Louise MD PCP - General Family Practice 02/22/14 Froylan Louise MD PCP - Assigned PCP 03/13/14 08/25/18 Froylan Louise MD Assigned PCP 03/13/14 2 documented as of this encounter
--- OUTSIDE RECORDS SUMMARY | 2022-05-15 22:36 | XMS_ITS | Encounter Summary ---
:1955 Author Organization [facility] Address [address] [place] [address] Care Team Providers Name Role Phone Froylan Louise MD Primary Care Provider Unavailable Froylan Louise MD Unavailable Unavailable Froylan Louise MD Unavailable Unavailable Reason for Visit Reason Onset Date Comments Referral 05/30/2014 Encounter Details Date Type Department Care Team Description 05/30/2014 Telephone [facility] [address] [address] Social History Tobacco Use Types [...] you attend orthodoxy or Patient refused 2020 baptist services? Do [...] this encounter Miscellaneous Notes Telephone Encounter - Alanna Casanova RN - 06/13/2014 4:24 PM CST Delayed entry: A message was left for patient to ask him to return phone call Dr. Wilkes would not be adding patient to his schedule due to a current full schedule and plan to be out of clinic for 3 weeks. Pt was pleasant and friendly and stated understanding. Dr. Botello was approached with the request to reconsider seeing Virgil due to a amiable conversation with him. Dr. Botello agreed to have patient added to his schedule today at 11:30. Pt did not return phone call to schedule. Again, this afternoon I was able to reach Virgil to discuss scheduling an appointment. Virgil stated he was too busy at work and there was too much illness for him to make an appointment until after June but he appreciated the multiple calls to get him scheduled. He said he would call us when he was ready to schedule. FYI to Dr. Dani Casanova RN FILTER OPERATOR Telephone Encounter - Alanna Casanova RN - 06/01/2014 10:02 AM CST Neida, Paintings Restorer approached me with her inability to find a satisfactory appointment time slot for patient, he has new DVT's along with a new open wound. I need to schedule him within aweek.. Virgil was offered an appointment on a Friday with our Cardiology/Vascular Medicine physicians. Virgil was unable to accept a Friday appointment. Neida approached Dr. Botello. Dr. Botello opened timeslot 06/01/14 9:30 am for this patient. Virgil stated he was unable to accept this time. Neida then asked me for suggestions on how to help patient get an appointment . I made a call to the patient andoffered Dr. Botello's suggested time slot. He stated due to his work schedule he was unable to make any appointment until after 3:30 pm. There were no time slots to get pt in for Office Visit within a week after 3:30. During the conversation he was condescending and disrespectful to me. He frequently used sarcasm ok, I can wait a year to get in, was rude throughout the conversation (multiple times addressed me as OK Lady, said he would call Dr. Louise's office for another physician recommendation. Virgil stated he has had this 7 years, I guess I can wait longer. I will find a doctor who isn't too busy to see me I did tell him his inability to accept an offered appointment would be documented. He replied, What! You are going todocument this? It was explained that should he have an event there would be documentation of the off ered appointment dates for him. He was told Dr. Botello would be contacted to see if there was a different day Virgil could be seen. He said he wanted to find another doctor who would have time for him. Because I felt the conversation was not being productive I told him I was going check with Dr. Botellofor another antionette't date option, stated he would receive a call back tomorrow (05/31/14) and I was going to hang up the phone. I said, good bye. and hung up the phone. Dr. Botello's response to the situation was The patient, who is not already an established with us, has been offered an almost immediate time slot, and has been incredibly rude to all of our staff when the exact time he wanted was not available. I will therefore not see this individual. If Dr. Wilkes wishes to work him in keeping with his exact wishes that will be up to him, but he will not be backuntil Friday. The director of our clinic is asking if this patient might the patient benefit from Integrated [facility] Complex Care Team? Alanna Casanova RN FILTER OPERATOR Telephone Encounter - Neida Rodriguez MA - 05/30/2014 10:19 AM CST LM for patient to call back to schedule consult appointment for varicose veins & history of DVT (60 min) with Dr. Riggs or any Vascular Medicine or Die Cast Operator available within the next week. FILTER OPERATOR Telephone Encounter - Lata Edward RN - 05/30/2014 9:35 AM CST Patient referred to our clinic by Dr. 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 Lata PATEL FILTER OPERATOR documented in this encounter Plan of Treatment Upcoming Encounters Date Type Specialty Care Team Description 05/20/2022 Lab Lab documented as of this encounter Visit Diagnoses Not on filedocumented in this encounter Care Teams Instrument Maker Relationship Specialty Start Date End Date Froylan Louise MD PCP - General Family Practice 02/22/14 Froylan Louise MD PCP - Assigned PCP 03/13/14 08/25/18 Froylan Louise MD Assigned PCP 03/13/14 2 documented as of this encounter
--- OUTSIDE RECORDS SUMMARY | 2022-05-15 22:36 | XMS_ITS | Encounter Summary ---
:1955 Author Organization [place] Address [address] [place] [address] Care Team Providers Name Role Phone Ian Kendrick MD Primary Care Provider [phone] Encounter Details Date Type Department Care Team Description 09/02/2013 Orders Only [facility] Talia tosterone deficiency [facility] [id number] [place] [phone] Social History Tobacco Use Types [...] containing 4 or more times a w [place] 05/25/2021 alcohol? How many drinks containing alcohol [...] you attend worship or Patient refused 2020 buddhist services? Do [...] documented as of this encounter Progress Notes Ian Kendrick MD - 09/12/2013 6:29 AM CDT Quick Note: Your recent testosterone level was now within normal limits. If you are having problems with therapy, or if you do not feel the testosterone replacement therapy is effective, please see me for an office visit. If things are going well, then you would need follow up testing in another 2 months, along with an office visit 1 week later to discuss the results. Future orders have been placed for recheck of the testosterone level, PSA for prostate cancer screening, and complete blood cell count. Please contact the clinic if you have further questions or concerns. Sincerely, Ian Kendrick MD documented in this encounter Plan of Treatment Upcoming Encounters Date Type Specialty Care Team Description 05/20/2022 Lab Lab documented as of this encounter Procedures Procedure Name Priority Date/Time Associated Diagnosis Comme nts TESTOSTERONE TOTAL Routine 09/02/2013 1:49 PM Testosterone Res ults for this CDT deficiency procedure are i n the results section. SEX HORMONE BINDING Routine 09/02/2013 1:49 PM Testosterone Re sults for this GLOBULIN CDT deficiency procedure are i n the results section. documented in this encounter Results Sex hormone binding globulin (09/02/2013 1:49 PM CDT) P athologist Signature Sex Hormone 27 [facility] Comment: Reference range: 11 to 80 Unit: nmol/L (Note) REFERENCE INTERVAL: Sex Hormone Binding Globulin Access complete set of age- and/or gende r-specific reference intervals for this test in the [facility] Test Directory (RF Code). Performed by [facility], [address] [place] [id number] [email or web address], Nish Knight MD, L ab. Director Specimen Anatomical Collection Method Collection Time Receive d Time (Source) Location / / Volume Laterality Blood specimen 09/02/2013 1:49 PM 014 1:50 (specimen) CDT PM CDT Ian Kendrick MD LAB - BLOOD ORDERABLES Performing Organization Address City/State/ZIP Code Phon e Number [facility] [address] [place] [address] Testosterone total (09/02/2013 1:49 PM CDT) Analysis Performed At [facility]o [facility]ist Time Signature Testosterone 363 240 - 950 [employer] Total ng/dL [facility] LABS Specimen Anatomical Collection Method Collection Time Receive d Time (Source) Location / / Volume Laterality Blood specimen 09/02/2013 1:49 PM 014 1:50 (specimen) CDT PM CDT Ian Kendrick MD LAB - BLOOD ORDERABLES Performing Organization Address City/State/[facility] Code Phon e Number [facility] [address] [place], [place] [id number] [place] [address] LABS documented in this encounter Visit Diagnoses Diagnosis Testosterone deficiency Other testicular hypofunction documented in this encounter Care Teams Injection Molding Machine Offbearer Relationship Specialty Start Date End Date Ian Kendrick MD PCP - General 11/19/07 02/21/14 [facility] [address] [place] [address] documented as of this encounter
--- OUTSIDE RECORDS SUMMARY | 2022-05-15 22:36 | XMS_ITS | Encounter Summary ---
:1955 Author Organization [facility] Address [address] [place] [address] Care Team Providers Name Role Phone Froylan Louise MD Primary Care Provider Unavailable Froylan Louise MD Unavailable Unavailable Froylan Louise MD Unavailable Unavailable Reason for Visit Reason Onset Date Comments Shoulder Pain 08/19/2014 Encounter Details Date Type Department Care Team Description 08/19/2014 Telephone [facility] Ronan Phan DO Shoulder Pain Medicine [facility] [place] [address] [place] [address] [address] [phone] [place] [address] Social History Tobacco Use Types Packs/Day Years [...] you attend christian or Patient refused 2020 spiritism services? Do [...] encounter Miscellaneous Notes Telephone Encounter - Irma Louis RN - 08/19/2014 4:39 PM CST Patient left voicemail at 3:02 stating he is on his way home from work. Is having severe shoulder pain near the front of both his shoulder blades. Had an bilateral cortisone injections about 4 weeks ago. 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 Is very painful and wanting to know if Dr. Kendrick can seehim today if that is possible. Phone call to patient and informed that Dr. Kendrick is no longer with [facility] and that he would need to establish care with Dr. Sifuentes. He does not want to wait until next week and is going to see if he can get in with Dr. Fonseca tomorrow. He previously did his knee surgery. He will call us back next week if needed. Ana Louis RN RCALENDER OPERATOR documented in this encounter Plan of Treatment Upcoming Encounters Date Type Specialty Care Team Description 05/20/2022 Lab Lab documented as of this encounter Visit Diagnoses Not on filedocumented in this encounter Care Teams [place] Hardware Installer Relationship Specialty Start Date End Date Froylan Louise MD PCP - General Family Practice 02/22/14 Froylan Louise MD PCP - Assigned PCP 03/13/14 08/25/18 Froylan Louise MD Assigned PCP 03/13/14 2 documented as of this encounter
--- OUTSIDE RECORDS SUMMARY | 2022-05-15 22:36 | XMS_ITS | Encounter Summary ---
:1955 Author Organization [facility] Address [address] [place] [address] Care Team Providers Name Role Phone Froylan Louise MD Primary Care Provider Unavailable Froylan Louise MD Unavailable Unavailable Froylan Louise MD Unavailable Unavailable Reason for Visit Reason Onset Date Comments Other 06/01/2014 Dr Botello's office Encounter Details Date Type Department Care Team Description 06/01/2014 Telephone [facility] Froylan Louise Othe r ([facility] [place] office) [address] [place] [address] Social History Tobacco Use Types [...] you attend mormonism or Patient refused 2020 jewish services? Do [...] Telephone Encounter - Wendi Lindsay RN - 06/01/2014 9:38 AM CST Received phone call from CINDY Mondragon at Dr Botello's office, regarding pt. They offered pt several different days and times to schedule but patient was rude, sarcastic, and uncooperative with staff. Dr Botello is booking out about 3 months but he gave staff the ok to offer appts within the next week but patient declined them all as he wants only appt after 3:30. Per RN this is when Dr Botello is at the hospital so there are not appts after 3:30. Dr Botello is going to talk with Dr Wilkes to see if he will accept patient this Friday. FYI sent to Dr Dani Mondragon's direct line is [phone] if you need to talk to her or Dr Botello about this patient Wendi Lindsay RN, BSN [employer] [employer] LAW CLERK documented in this encounter Plan of Treatment Upcoming Encounters Date Type Specialty Care Team Description 05/20/2022 Lab Lab documented as of this encounter Visit Diagnoses Not on filedocumented in this encounter Care Teams [place] Machine Operator Relationship Specialty Start Date End Date Froylan Louise MD PCP - General Family Practice 02/22/14 Froylan Louise MD PCP - Assigned PCP 03/13/14 08/25/18 Froylan Louise MD Assigned PCP 03/13/14 2 documented as of this encounter
--- OUTSIDE RECORDS SUMMARY | 2022-05-15 22:36 | XMS_ITS | Encounter Summary ---
:1955 Author Organization [facility] Address [address] [place] [address] Care Team Providers Name Role Phone Froylan Louise MD Primary Care Provider Unavailable Froylan Louise MD Unavailable Unavailable Froylan Louise MD Unavailable Unavailable Encounter Details Date Type Department Care Team Description 06/18/2014 Orders Only [facility] Hyp erlipidemia LDL goal <160 [facility] [place] [address] [place] [address] Social History Tobacco Use Types [...] 4 or more times a w [place] 05/25/2021 alcohol? How many drinks containing alcohol [...] you attend orthodoxy or Patient refused 2020 sabianism services? Do [...] Diagnosis Comme nts LIPID REFLEX TO Routine 06/18/2014 8:03 AM Hyperlipidemia LDL goal Results for this DIRECT LDL PANEL PIPEFITTER <160 procedure a re in the results section. documented in this encounter Results (ABNORMAL) Lipid panel reflex to direct LDL (06/18/2014 8:03 AM PIPEFITTER) P athologist Signature Cholesterol 197 <200 mg/dL [facility] Comment: LDL Cholesterol is the primary guide to therapy. The NCEP recommends further evaluation of: patients with cholesterol greater than 200 mg/dL if additional risk facto rs are present, cholesterol greater than 240 mg/dL, triglycerides greater than 1 50 mg/dL, or HDL less than 40 mg/dL. Triglycerides 211 (H) 0 - 150 mg/dL [facility] [place] Comment: Fasting specimen HDL Cholesterol 45 >40 mg/dL [facility] [place] LDL Cholesterol Calculated 110 0 - 129 mg/dL [facility] Comment: LDL Cholesterol is the primary guide to therapy: LDL-cholesterol goal in high risk patients is <100 mg/dL and in very high risk patients is <70 mg/dL. VLDL-Cholesterol 42 (H) 0 - 30 mg/dL [facility] Cholesterol/HDL Ratio 4.4 0.0 - 5.0 [facility] Specimen Anatomical Collection Method Collection Time Receive d Time (Source) Location / / Volume Laterality Blood specimen 06/18/2014 8:03 AM 014 8:04 (specimen) PIPEFITTER AM PIPEFITTER Froylan Louise MD LAB - BLOOD ORDERABLES Performing Organization Address City/State/ZIP Code Phon e Number [facility] [address] [place] [address] [facility] [address] [place], [place] [address] documented in this encounter Visit Diagnoses Diagnosis Hyperlipidemia LDL goal <160 Other and unspecified hyperlipidemia documented in this encounter Care Teams Stereoptic Projection Topographer Relationship Specialty Start Date End Date Froylan Louise MD PCP - General Family Practice 02/22/14 Froylan Louise MD PCP - Assigned PCP 03/13/14 08/25/18 Froylan Louise MD Assigned PCP 03/13/14 2 documented as of this encounter
--- OUTSIDE RECORDS SUMMARY | 2022-05-15 22:36 | XMS_ITS | Encounter Summary ---
:1955 Author Organization [place] Address [address] [place] [address] Care Team Providers Name Role Phone Froylan Louise MD Primary Care Provider Unavailable Reason for Visit Reason Onset Date Comments Refill Request 03/03/2014 atrovent Encounter Details Date Type Department Care Team Description 03/03/2014 Refill [facility] Froylan Louise Ra, Refill Request Chhaya VILLASEÑOR (atrovent) [address] [place] [phone] Social History Tobacco Use [...] you attend yazidi or Patient refused 2020 hindu services? Do [...] Telephone Encounter - Wendi Lindsay RN - 03/03/2014 10:49 AM CDT RF request for Atrovent Inhaler Ok per RN protocol x1 mos. Pt has appt 03/04/14 JENNIFER: 07/29/13 Wendi Lindsay RN BP Readings from Last 1 Encounters: 08/21/13 119/77 AAP date: 07/07/13 -Asthma Action Plan (AAP) on file (if not clear refer to PCP or make appt) -Encounter/OV: every 12 months -Max RF's until next OV related to diagnosis: 12months Category: Asthma & COPD/Other Medications documented in this encounter Plan of Treatment Upcoming Encounters Date Type Specialty Care Team Description 05/20/2022 Lab Lab documented as of this encounter Visit Diagnoses Diagnosis Mild persistent asthma Unspecified asthma documented in this encounter Care Teams Television Director Relationship Specialty Start Date End Date Froylan Louise MD PCP - General Family Practice 02/22/14 documented as of this encounter
--- OUTSIDE RECORDS SUMMARY | 2022-05-15 22:36 | XMS_ITS | Encounter Summary ---
:1955 Author Organization [facility] Address [address] [place] [address] Care Team Providers Name Role Phone Froylan Louise MD Primary Care Provider Unavailable Froylan Louise MD Unavailable Unavailable Froylan Louise MD Unavailable Unavailable Reason for Visit Reason Onset Date Comments Nurse Advice Line 06/17/2014 order for a lab Encounter Details Date Type Department Care Team Description 06/17/2014 Telephone [facility] Froylan Louise Nurs e Advice Line Clinic Chh[facility] VILLASE[facility]OR (order for a lab) [address] [place] [address] Social History Tobacco Use Types [...] or more times a w [place] 05/25/2021 alcohol? How many drinks containing alcohol [...] you attend spiritism or Patient refused 2020 evangelical services? Do [...] Notes Telephone Encounter - Carolin Dawson - 06/27/2014 10:51 AM CST Gave patient the message. Carolin Dawson Merchandise Complaint Adjuster GER BUDGET Telephone Encounter - Carolin Dawson - 06/27/2014 10:45 AM CST LVM asking patient to call the clinic, please give him the message below. Carolin Dawson Merchandise Complaint Adjuster GER BUDGET Telephone Encounter - Froylan Louise MD - 06/27/2014 9:44 AM CST I do not do this lab - if he wants referral to endocrinology we can do that. GER BUDGET Telephone Encounter - Esthela Corea RN - 06/17/2014 3:07 PM CST Pt states his neighbor states he should check this - Advised if wants to check HGH should discuss with PCP at OV. PT declines appt at this time. Please review and advise as to other labs. Esthela Corea RN GER BUDGET Telephone Encounter - Carolin Dawson - 06/17/2014 1:54 PM CST Name of caller: Virgil Relationship to pt: self Reason for call: Patient is having some lab work done tomorrow, he would like to know if Dr. Louise can put in a order for HGH1 test? Also patient wants to know what you think of his latest testosteroneresults Best phone number to reach pt at is: [phone] Ok to leave a message with medical info? Pharmacy Information: Carolin Dawson Merchandise Complaint Adjuster GER BUDGET documented in this encounter Plan of Treatment Upcoming Encounters Date Type Specialty Care Team Description 05/20/2022 Lab Lab documented as of this encounter Visit Diagnoses Not on filedocumented in this encounter Care Teams English And Reading Instructor Relationship Specialty Start Date End Date Froylan Louise MD PCP - General Family Practice 02/22/14 Froylan Louise MD PCP - Assigned PCP 03/13/14 08/25/18 Froylan Louise MD Assigned PCP 03/13/14 2 documented as of this encounter
--- OUTSIDE RECORDS SUMMARY | 2022-05-15 22:36 | XMS_ITS | Encounter Summary ---
:1955 Author Organization [facility] Address [address] [place] [address] Care Team Providers Name Role Phone Froylan Louise MD Primary Care Provider Unavailable Froylan Louise MD Unavailable Unavailable Froylan Louise MD Unavailable Unavailable Reason for Visit Reason Onset Date Comments Call Back 05/23/2014 Encounter Details Date Type Department Care Team Description 05/23/2014 Telephone [facility] Froylan Louise Ra, MD Call Back [place] [id number] [place] [phone] Social History Tobacco Use Types [...] you attend buddhism or Patient refused 2020 confucianism services? Do [...] Telephone Encounter - Wendi Lindsay RN - 05/23/2014 4:18 PM CST Pt would like to know what HGH1 test is as his neighbor had a tumor removed with some of the same symptoms pt is having. Advise he talk with Dr Louise about this. Pt states he has a sore on his right ankle that is not healing which is also on the same leg that hehad a DVT and swelling due to decreased blood flow. Pt is scheduled on 05/27/[address] Dani Lindsay RN, BSN FEATHER MACHINE OPERATOR Telephone Encounter - Jessica Bustamante - 05/23/2014 4:07 PM CST Patient has lab appt at [facility] on 06/19/14 @ 8:15am, and he want a call back to add an addition allab test, please call him @ [phone]. Latasha Bustamante Pat. Rep FEATHER MACHINE OPERATOR documented in this encounter Plan of Treatment Upcoming Encounters Date Type Specialty Care Team Description 05/20/2022 Lab Lab documented as of this encounter Visit Diagnoses Not on filedocumented in this encounter Care Teams Buckle Wire Inserter Relationship Specialty Start Date End Date Froylan Louise MD PCP - General Family Practice 02/22/14 Froylan Louise MD PCP - Assigned PCP 03/13/14 08/25/18 Froylan Louise MD Assigned PCP 03/13/14 2 documented as of this encounter
--- OUTSIDE RECORDS SUMMARY | 2022-05-15 22:36 | XMS_ITS | Encounter Summary ---
:1955 Author Organization [facility] Address [address] [place] [address] Care Team Providers Name Role Phone Froylan Louise MD Primary Care Provider Unavailable Froylan Louise MD Unavailable Unavailable Froylan Louise MD Unavailable Unavailable Reason for Visit Reason Onset Date Comments Refill Request 10/03/2014 Encounter Details Date Type Department Care Team Description 10/03/2014 Refill [facility] Froylan Louise Ra, MD Refill Request [address] [phone] Social History Tobacco Use [...] you attend uatsdin or Patient refused 2020 jain services? Do [...] Notes Telephone Encounter - Irma Dunaway - 10/03/2014 3:55 PM CDT Ph. [phone] Patient questioning if he can take 2 tabs and a refill cyclobenzaprine (FLEXERIL) 10 MG tablet 30 tablet 1 05/27/2014 -- Sig: Take 1 tablet (10 mg) by mouth 3 times daily as needed for muscle spasms Class: E-Prescribe Route: Oral Order: [id number] OV 05/27/2014 Irma Dunaway [employer] documented in this encounter Plan of Treatment Upcoming Encounters Date Type Specialty Care Team Description 05/20/2022 Lab Lab documented as of this encounter Visit Diagnoses Diagnosis Cramp of limb - Primary documented in this encounter Care Teams Sanforizer Relationship Specialty Start Date End Date Froylan Louise MD PCP - General Family Practice 02/22/14 Froylan Louise MD PCP - Assigned PCP 03/13/14 08/25/18 Froylan Louise MD Assigned PCP 03/13/14 2 documented as of this encounter
--- OUTSIDE RECORDS SUMMARY | 2022-05-15 22:36 | XMS_ITS | Encounter Summary ---
:1955 Author Organization [facility] Address [address] [place] [address] Care Team Providers Name Role Phone Ian Kendrick MD Primary Care Provider [phone] Reason for Visit Auth/Cert Specialty Diagnoses / Procedures Referred By Contact Refer red To Contact Surgery Diagnoses Cubital tunnel syndrom Rh Periop Services Procedures [facility] [address] [place], [place] [address] Phone: Fax: Referral ID Status Reason Start Date Expiration Date Visits Requ ested Visits Authorized [id number] 1 1 Encounter Details Date Type Department Care Team Description 08/20/2013 Anesthesia Event [facility] Oliverio Haque upper jay PeriOp Services MD [place] [address] [place], [place] ANESTHESIA [address] [address] [facility] [phone] [place], [place] [address] Anesthesia Record Procedure Summary Procedure Name Responsible Anesthesia Start Anesthesia Stop Anesthesiologist Time Time Right Knee Uni Adolph Haque, 08/20/13 0733 1015 Arthroplasty (Right: Knee) Events Date Time Event Comment 08/20/2013 0733 An Start 0735 Present 0737 An Start Data 0737 An Induction 0737 MD Present 0738 AN START SEVO 0739 Present 0740 An Intubation 0741 Present 0800 An Tourn Inflated 0841 MD Present [address] Fonseca requ ests that Ancef 2 hour redose be administered aft er the tourniquet is down. 0948 MD Present 1000 An Tourn Deflated 1001 AN END SEVO 1009 an stop data 1015 An Stop Electronically s igned by Jvoita Figueroa on August 20, 2013 10:15 A M 1015 Present Name Total midazolam 1 mg/mL 4 mg fentaNYL 50 mcg/mL 250 mcg lidocaine 1% 50 mg propofol 10 mg/mL 200 mg rocuronium 10 mg/mL 50 mg glycopyrrolate 0.2 mg/mL 0.6 mg neostigmine 1mg/mL 3 mg dexamethasone 4 mg/mL 8 mg ondansetron 2 mg/mL 4 mg HYDROmorphone 1 mg/ml 1 mg ceFAZolin (ANCEF) 3 g in NaCl 0.9% 100 mL injection 5 g LR 1,600 mL Agents Name O2 N2O Exp Sevoflurane Blood No blood administrations on file. Lines, Drains, and Airways Type Details Placement Removal Incision/Surgical Site 08/20/13; 0830; Right; 08/20/13 0830 by Knee Adolph Short, CINDY Peripheral IV 08/20/13; 0658; 18 G, 1 08/20/13 0658 by 1 1854 by 1/4 inch; Left, Dorsal; Adolph Haque , Cheryl, Hand; Alcohol; MD CINDY Kramer Injectable; Tolerated well RETIRED ETT 08/20/13; 0740; Airway 08/20/13 0740 by 08/20/13 1010 by Size: 8; Cuffed; Oral Jovita Figueroa APRN Knuds en, Karen, RN endotracheal tube; Blade SHRIMP PICKER Type: Patel; Blade Size: 2; Place by: LL; Insertion Attempts: 1; Secured at (cm)to lip: 24 cm; Breath Sounds: Equal, clear and bilateral; End Tidal CO2: Present; Dentition: Other (comment) (very poor dentition, several broken/chipped teeth); Grade View of Cords: 1 Urethral Catheter 08/20/13; 0816; No; 16 08/20/13 0816 by 1205 by fr Adolph Short RN Knudsen, Kare n, RN Closed/Suction Drain 08/20/13; 0939; 1; 08/20/13 0939 by 4 0438 by Right; Knee; Accordion; Adolph Short RN White head, Vicky 10 Jd Duron LPN documented in this encounter Social History Tobacco [...] you attend pentecostal or Patient refused 2020 adventist services? Do [...] encounter OR Notes Anesthesia Postprocedure Evaluation - Adolph Haque MD - 08/20/2013 10:35 AM CST Anesthesia Post-Evaluation Note Patient: Virgil Christine Patient location: PACU Procedure(s) Performed: Procedure(s) with comments: ARTHROPLASTY KNEE UNICOMPARTMENT - Right Knee Uni Arthroplasty Anesthesia type: General, Peripheral Nerve Block for post-op pain at surgeon's request Post Op Diagnosis: * No post-op diagnosis entered *. 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 Pt has had prior anesthetic. Type: General No history of anesthetic complications ROS/MED HX ENT/Pulmonary: (+)sleep apnea, asthma , . . Neurologic: - neg neurologic ROS Cardiovascular: - neg cardiovascular ROS METS/Exercise Tolerance: Hematologic: (+) History of blood clots pt is anticoagulated, - Musculoskeletal: (+) arthritis, - GI/Hepatic: - neg GI/hepatic ROS Renal/Genitourinary: - ROS Renal section negative Endo: Comment: Possibly pre-diabetic Psychiatric: - neg psychiatric ROS Infectious Disease: - neg infectious disease ROS Malignancy: - no malignancy Other: - neg other ROS Anesthesia Plan ASA Score: 3 . Plan for General and Peripheral Nerve Block for post-op pain at surgeon's request - with Intravenousinduction.Maintenance will be Balanced. Routine analgesia and antiemetics and nerve block for post-op analgesia to be used for post-operative care. Anesthetic plan, risks, benefits and alternatives discussed with: patient or warehouse representative. History & Physical Review History and physical reviewed; no interval change. . [facility] Anesthesia Procedure Notes - Adolph Haque MD - 08/20/2013 7:19 AM CSTAssociated Order(s): ANE PERIPHERAL/PARAVETEBRAL BLOCK PROCEDURE NOTE Pre-Procedure Performed by MD Steve Procedure Times:08/20/2013 7:05 AM and 08/20/2013 7:18 AM Location: PreAnesthestic Checklist: patient identified, IV checked, site marked, risks and benefits discussed,informed consent, monitors and equipment checked, pre-op evaluation, at physician/surgeon's request and post-op pain management Timeout Correct Patient: Yes Correct Procedure: adductor canal and femoral Correct Site: Yes Correct Laterality: Yes Correct Position: Yes Site Marked: Yes Procedure Documentation Procedure: right Adductor canal and femoral Ultrasound guided Ultrasound used to identify targeted nerve, plexus, or vascular marker and placed a needle adjacent to it. Position: supine Prep: povidone-iodine 7.5% surgical scrub and sterile gloves Local skin infiltrated with 0.2 mL of 1% lidocaine. Needle: insulated (22 G, 80 mm). Spinal Needle: (). Insertion Method: Single Shot Assessment/Narrative Injection made incrementally with aspirations every 5 mL. The placement was negative for: blood aspirated, painful injection and site bleedingParesthesia's: No. Comments: 30 ml 0.5% bupivicaine placed. FLATBED DRIVER documented in this encounter Miscellaneous Notes Anesthesia Care Transfer Note - Jovita Figueroa APRN SHRIMP PICKER - 08/20/2013 10:14 AM CST Anesthesia Care Transfer Note Patient: Virgil Christine Transferred to: PACU Patient vital signs: stable Airway: none FLATBED DRIVER documented in this encounter Plan of Treatment Upcoming Encounters Date Type Specialty Care Team Description 05/20/2022 Lab Lab documented as of this encounter Procedures Procedure Name Priority Date/Time Associated Diagnosis Comme nts ANE Routine 08/20/2013 7:20 AM Results f or this PERIPHERAL/PARAVETE OTR FLATBED DRIVER procedur e are in BRAL BLOCK the results section. documented in this encounter Results Peripheral/Paravetebral Block (08/20/2013 7:20 AM OTR FLATBED DRIVER) Narrative Adolph Haque MD - 7:20 AM OTR FLATBED DRIVER Adolph Haque MD ? 08/20/2013 ??7:20 AM PROCEDURE NOTE Pre-Procedure Performed by MD Steve Procedure Times:08/20/2013 7:05 AM and 7:18 AM Location: PreAnesthestic Checklist: patient identi fied, IV checked, site marked, risks and benefits discussed, in formed consent, monitors and equipment checked, pre-op evaluation , at physician/surgeon's request and post-op pain management Timeout Correct Patient: Yes Correct Procedure: adductor canal and femoral Correct Site: Yes Correct Laterality: Ye s Correct Position: Yes Site Marked: Yes Procedure Documentation Procedure: ?? right ??Adductor canal and femoral Ultrasound guided ??Ultrasound used to i dentify targeted nerve, plexus, or vascular marker and placed a needle adjacent to it. Position: supine Prep: povidone-iodine 7.5% surgical scru b and sterile gloves Local skin infiltrated with 0.2 mL of 1% lidocaine. Needle: insulated (22 G, 80 mm). Spinal Needle: (). Insertion Method: Single Shot Assessment/Narrative Injection made incrementally with aspira tions every 5 mL. The placement was negative for: blood as pirated, painful injection and site bleedingParesthesia's : No. Comments: 30 ml 0.5% bupivicaine placed. Procedure Note Adolph Haque MD - 4 7:19 AM CST PROCEDURE NOTE Pre-Procedure Performed by MD Steve Procedure Times:08/20/2013 7:05 AM and 7:18 AM Location: PreAnesthestic Checklist: patient identi fied, IV checked, site marked, risks and benefits discussed, informed consent, monitors and equipment checked, pre-op evaluation, at physician/surgeon's request and post-op pain management Timeout Correct Patient: Yes Correct Procedure: adductor canal and femoral Correct Site: Yes Correct Laterality: Ye s Correct Position: Yes Site Marked: Yes Procedure Documentation Procedure: right Adductor canal and femo ral Ultrasound guided Ultrasound used to breezy ntify targeted nerve, plexus, or vascular marker and placed a needle adjacent to it. Position: supine Prep: povidone-iodine 7.5% surgical scru b and sterile gloves Local skin infiltrated with 0.2 mL of 1% lidocaine. Needle: insulated (22 G, 80 mm). Spinal Needle: (). Insertion Method: Single Shot Assessment/Narrative Injection made incrementally with aspira tions every 5 mL. The placement was negative for: blood as pirated, painful injection and site bleedingParesthesia's: No. Comments: 30 ml 0.5% bupivicaine placed. Adolph Haque MD [place] ANESTHESIA documented in this encounter Visit Diagnoses Not on filedocumented in this encounter Administered Medications Inactive Administered Medications - up to 3 most recent administrations Medication Order MAR Action Action Date Dose Rate Site ceFAZolin (ANCEF) 3 g in NaCl 0.9% Given 08/20/2013 10:01 AM OTR FLATBED DRIVER 2 g 100 mL injection Routine, 3 g, Intravenous, PRE-OP/PRE-PROCEDURE, Starting on Fri08/20/13 at 0610, For 1 dose, Give first dose within 1 hour PRIOR to incision., Indications: Perioperative Pharmacoprophylaxis, Pre-procedure Given 08/20/2013 7:33 AM OTR FLATBED DRIVER 3 g dexamethasone (DECADRON) injection Given 08/20/2013 7:38 AM OTR FLATBED DRIVER 8 mg PRN, Administer over 1-4 Minutes, Starting on Fri08/20/13 at 0738, Anesthesia Intra-op fentaNYL (SUBLIMAZE) injection Given 08/20/2013 8:54 AM OTR FLATBED DRIVER 50 mcg PRN, moderate to severe pain, Starting on Fri08/20/13 at 0735, Anesthesia Intra-op Given 08/20/2013 7:37 AM OTR FLATBED DRIVER 100 mcg Given 08/20/2013 7:36 AM OTR FLATBED DRIVER 50 mcg glycopyrrolate (ROBINUL) injection Given 08/20/2013 9:51 AM OTR FLATBED DRIVER 0.6 mg PRN, Starting on Fri08/20/13 at 0951, Anesthesia Intra-op HYDROmorphone (PF) (DILAUDID) injection Given 08/20/2013 10:08 AM OTR FLATBED DRIVER 1 mg PRN, moderate to severe pain, Starting on Fri08/20/13 at 1008, Anesthesia Intra-op lactated ringers infusion New Bag 08/20/2013 7:01 AM OTR FLATBED DRIVER mL Intravenous, CONTINUOUS PRN, Anesthesia Intra-op, Starting on Fri08/20/13 at 0701, Until Fri08/20/13 at 1015 lidocaine 1 % injection Given 08/20/2013 7:37 AM OTR FLATBED DRIVER 50 mg PRN, Starting on Fri08/20/13 at 0737, Anesthesia Intra-op midazolam (VERSED) injection Given 08/20/2013 7:34 AM OTR FLATBED DRIVER 2 mg PRN, anxiety, Starting on Fri08/20/13 at 0734, Anesthesia Intra-op Given 08/20/2013 7:05 AM OTR FLATBED DRIVER 2 mg neostigmine (PROSTIGMINE) injection Given 08/20/2013 9:51 AM OTR FLATBED DRIVER 3 mg Intravenous, PRN, Starting on Fri08/20/13 at 0951, Anesthesia Intra-op ondansetron (ZOFRAN) injection Given 08/20/2013 9:29 AM OTR FLATBED DRIVER 4 mg PRN, nausea, vomiting, Administer over 2-5 Minutes, Starting on Fri08/20/13 at 0929, Anesthesia Intra-op propofol (DIPRIVAN) injection Given 08/20/2013 7:37 AM OTR FLATBED DRIVER 200 mg PRN, Starting on Fri08/20/13 at 0737, Anesthesia Intra-op rocuronium (ZEMURON) injection Given 08/20/2013 7:38 AM OTR FLATBED DRIVER 40 mg PRN, Starting on Fri08/20/13 at 0737, Anesthesia Intra-op Given 08/20/2013 7:37 AM OTR FLATBED DRIVER 10 mg documented in this encounter Care Teams Processing Associate Relationship Specialty Start Date End Date Ian Kendrick MD PCP - General 11/19/07 02/21/14 [place] [id number] [place] [address] documented as of this encounter
--- OUTSIDE RECORDS SUMMARY | 2022-05-15 22:36 | XMS_ITS | Encounter Summary ---
:1955 Author Organization [facility] Address [address] [place] [address] Care Team Providers Name Role Phone Froylan Louise MD Primary Care Provider Unavailable Froylan Louise MD Unavailable Unavailable Froylan Louise MD Unavailable Unavailable Reason for Visit Reason Onset Date Comments Results 10/11/2014 Encounter Details Date Type Department Care Team Description 10/11/[address] [facility] Froylan Louise Ra, MD Results [address] [phone] Social History Tobacco [...] you attend taoist or Patient refused 2020 quaker services? Do [...] Telephone Encounter - Wendi Lindsay RN - 10/11/2014 4:29 PM CDT Patient calling for results from May as he hasn't heard back. Advised that the result notes were sent to [email or web address]. Reviewed the notes and discussed at great length how to reduce fats, carbs, and eating a healthier diet. Directed him to the [employer] and [employer] for tips on how to prepare foods, read labels, and each for a healthy lifestyle. Pt also had questions on what flexeril was for and if it worked for arthritic pain. Advised this is for muscle only and that he cannot take more than prescribed. He also wanted to know what he could take for arthritis. Tylenol not to exceed 4000 mg/24 hr or ibuprofen not to exceed 3200 mg/24 hour. He is now taking Aleve. He is to not take ibuprofen along with this and to follow the package directions. He cannot drink a lot of water otherwise he gets bloated and his leg swells but if he doesn't then he becomes dehydrated easily as he has not colon per patient. Suggested trying some Pedialyte to help balance electrolytes and help with hydration. Over 25 minutes spend talking with patient. Wendi Lindsay RN, BSN documented in this encounter Plan of Treatment Upcoming Encounters Date Type Specialty Care Team Description 05/20/2022 Lab Lab documented as of this encounter Visit Diagnoses Not on filedocumented in this encounter Care Teams Factory Worker Relationship Specialty Start Date End Date Froylan Louise MD PCP - General Family Practice 02/22/14 Froylan Louise MD PCP - Assigned PCP 03/13/14 08/25/18 Froylan Louise MD Assigned PCP 03/13/14 2 documented as of this encounter
--- OUTSIDE RECORDS SUMMARY | 2022-05-15 22:36 | XMS_ITS | Encounter Summary ---
:1955 Author Organization [facility] Address [address] [place] [address] Care Team Providers Name Role Phone Ian Kendrick MD Primary Care Provider [phone] Reason for Visit Reason Onset Date Comments Refill Request 10/27/2013 HYDROcodone-acetamin ophen (NORCO) 5-325 MG Encounter Details Date Type Department Care Team Description 10/27/2013 Telephone [facility] Ian Kendrick Refill Request Clinic Chhaya Daniels MD (HYDROcodone-acetamino [address] [facility] phen (NORCO) 5-325 MG) [place], [place] [address] [facility] [address] [facility] [phone] [place] [address] (Wo rk) Social History Tobacco Use Types [...] you attend restoration or Patient refused 2020 voodoo services? Do [...] Notes Telephone Encounter - Irma Dunaway - 10/27/2013 4:14 PM CDT rx approved faxed to [facility]. Irma Dunaway Dissolver Operator Telephone Encounter - Ian Kendrick MD - 10/27/2013 3:54 PM CDT Hard copy printed and signed. Please see nurse's inbox to fax. If patient needs further narcotic prescriptions, he will need an office visit for follow up. Telephone Encounter - Irma Dunaway - 10/27/2013 3:33 PM CDT Ph. [phone] HYDROcodone-acetaminophen (NORCO) 5-325 MG per tablet 30 tablet 0 07/07/2013 -- Sig: Take 1 tablet bymouth every 6 hours as needed Class: Local Print Route: Oral OV 07/07/2013 Back pain Irma Dunaway Dissolver Operator documented in this encounter Plan of Treatment Upcoming Encounters Date Type Specialty Care Team Description 05/20/2022 Lab Lab documented as of this encounter Visit Diagnoses Diagnosis Cervical radiculopathy Brachial neuritis or radiculitis nos documented in this encounter Care Teams Page Designer Relationship Specialty Start Date End Date Ian Kendrick MD PCP - General 11/19/07 02/21/14 [facility] [address] [place] [address] documented as of this encounter
--- OUTSIDE RECORDS SUMMARY | 2022-05-15 22:36 | XMS_ITS | Encounter Summary ---
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 How many drinks containing alcohol [...] you attend christian or Patient refused 2020 yazidi services? Do [...] as of this encounter Visit Diagnoses Diagnosis Testosterone deficiency - Primary Other testicular hypofunction documented in this encounter Care Teams Franchise Consultant Relationship Specialty Start Date End Date Ian Kendrick MD PCP - General 11/19/07 02/21/14 [facility] [address] [place] [address] documented as of this encounter
--- OUTSIDE RECORDS SUMMARY | 2022-05-15 22:36 | XMS_ITS | Encounter Summary ---
:1955 Author Organization [facility] Address [address] [place] [id number] Care Team Providers Name Role Phone Ian Kendrick MD Primary Care Provider Reason for Visit Auth/Cert Specialty Diagnoses / Procedures Referred By Contact Refer red To Contact Surgery Diagnoses Cubital tunnel syndrom Rh Periop Services Procedures [facility] [address] [place], [place] [address] Phone: Fax: Referral ID Status Reason Start Date Expiration Date Visits Requ ested Visits Authorized [id number] 1 1 Encounter Details Date Type Department Care Team Description 08/20/2013 - Hospital Encounter [facility], Mild persistent asthma (Primary Dx); 08/21/[address] Horacio Hein MD Edema leg; [facility] Cervical radiculopathy; [address] [facility] ORTHOPEDICS ULCERATIVE COLITIS NOS; [place], [place] [address] [place] deficiency; [id number] [address] Lichen planus; [phone] [place], [place] Personal hist ory of DVT (deep vein thrombosis); [address] OA (osteoarthritis) of knee; [phone] Preop general p hysical exam (Work) Social History Tobacco Use Types Packs/Day Years [...] you attend catholic or Patient refused 2020 gnosticist services? Do [...] Sign Reading Time Taken Comments Blood Pressure 119/77 08/21/2013 7:16 AM ASBESTOS WIRE FINISHER Pulse 72 08/21/2013 7:16 AM ASBESTOS WIRE FINISHER Temperature 35.7 ??C (96.3 ??F) 08/21/2013 7:16 AM ASBESTOS WIRE FINISHER Respiratory Rate 16 08/21/2013 7:16 AM ASBESTOS WIRE FINISHER Oxygen Saturation 99% 08/21/2013 7:16 AM ASBESTOS WIRE FINISHER Inhaled Oxygen Concentration - - Weight 109.8 kg (242 lb) 08/20/2013 5:53 AM ASBESTOS WIRE FINISHER Height 180.3 cm (5' 11) 08/20/2013 5:53 AM ASBESTOS WIRE FINISHER Body Mass Index 33.75 08/20/2013 5:53 AM ASBESTOS WIRE FINISHER documented in this encounter Medications at Time of Discharge Medication Sig Dispensed Refills Start Date End Date oxyCODONE (OXYCONTIN) Take 1 tablet (10 20 tablet 0 014 08/31/2013 10 MG 12 hr mg) by mouth every tabletIndications: OA 12 hours for 10 days (osteoarthritis) of knee Acetaminophen (TYLENOL Take 500 mg by mouth 0 06/13/2017 PO) every 8 hours as needed albuterol (PROAIR HFA) Inhale 1-2 puffs 3 Inhaler 0 013 03/04/2014 108 (90 BASE) MCG/ACT into the lungs every inhalerIndications: 4 hours as needed. Mild persistent asthma beclomethasone (QVAR) Inhale 1 puff into 3 Inhaler 2 201303/04/2014 80 MCG/ACT the lungs 2 times InhalerIndications: daily Mild persistent asthma celecoxib (CELEBREX) Take 1 capsule (200 20 capsule 0 201305/04/2015 200 MG mg) by mouth 2 times capsuleIndications: OA daily for 10 days (osteoarthritis) of knee Cyanocobalamin (VITAMIN Take 500 mcg by 0 05/04/2015 B 12 PO) mouth daily Furosemide (LASIX) 20 Take 0.5-1 tablets 90 tablet 0 201312/22/2014 MG tabletIndications: by mouth. Take as Edema leg needed for leg swelling. HYDROcodone-acetaminoph Take 1 tablet by 30 tablet 0 201310/27/2013 en (NORCO) 5-325 MG per mouth every 6 hours tabletIndications: as needed Cervical radiculopathy hydrOXYzine (ATARAX) 25 Take 1 tablet (25 40 tablet 1 08/2105/31/2016 MG tabletIndications: mg) by mouth every 6 OA (osteoarthritis) of hours as needed for knee itching or anxiety (pain/spasm) ipratropium (ATROVENT Inhale 2 puffs into 3 Inhaler 2 07/0703/03/2014 HFA) 17 MCG/ACT the lungs 4 times inhalerIndications: daily Mild persistent asthma loperamide (IMODIUM) 2 Take 3-4 capsules 480 capsule 12 07/0703/04/2014 MG capsuleIndications: (6-8 mg) by mouth 3 Ulcerative colitis, times daily unspecified MELATONIN PO Take 5 mg by mouth 0 04/23 nightly as needed multivitamin, Take 1 tablet by 0 05/04 therapeutic with mouth daily minerals (MULTI-VITAMIN) TABS [place]-3 Fatty Acids Take 1 g by mouth 2 0 05/04/2015 (OMEGA-3 FISH OIL PO) times daily (with meals) ORDER FOR RINA hose or support 2 Units 2 04/18/201003/04 DMEIndications: stocking, knee high Embolism and thrombosis SZ M4 30-40 mmHg of unspecified site oxyCODONE-acetaminophen Take 1-2 tablets by 75 tablet 0 06/201303/04/2014 (PERCOCET) 5-325 MG per mouth every 4 hours tabletIndications: OA as needed for pain (osteoarthritis) of knee rivaroxaban Take 1 tablet (10 21 tablet 0 08/21/20132014 ANTICOAGULANT (XARELTO) mg) by mouth daily 10 MG TABS (with dinner) for 21 tabletIndications: days Personal history of DVT (deep vein thrombosis), OA (osteoarthritis) of knee, Preop general physical exam sildenafil (VIAGRA) 50 Take 0.5-1 tablets 6 tablet 12 07/0702/22/2015 MG tabletIndications: (25-50 mg) by mouth Erectile dysfunction daily as needed for erectile dysfunction testosterone (ANDROGEL Apply 2 pumps (40.5 1 Month 1 11/201303/04/2014 1.62% PUMP) 20.25 mg) topically daily MG/ACT gelIndications: Apply from dispenser Testosterone deficiency to clean, dry, intact skin of the upper arms and shoulders. triamcinolone (KENALOG) Apply topically 2 30 g 1 07/0703/04/2014 0.1 % creamIndications: times daily. Lichen planus documented as of this encounter Progress Notes Tricia Sood-Provider - 08/23/2013 3:43 PM CST STOS WIRE FINISHER Jose Fonseca MD - 08/21/2013 10:57 AM CST Orthopedic Surgery 08/21/2013 S: Patient voices no complaints today. O: Blood pressure 119/77, pulse 72, temperature 96.3 ??F (35.7 ??C), temperature source Oral, resp. rate 16, height 1.803 m (5' 11), weight 109.77 kg (242 lb), SpO2 99.00%. HGB 12.9 08/21/2013 INR 2.05 01/05/2009 INR 2.1 12/29/2008 Neurovascularly intact. Calves are negative bilaterally, both soft and nontender. The wound is C/D/I. The wound looks good with minimal erythema of the surrounding skin. A: Mr. Christine is doing well status post Procedure(s): ARTHROPLASTY KNEE UNICOMPARTMENT. P: Continue physical therapy. Anticoagulation with xarelto Pain management Discharge planning Jose Fonseca MD [phone] STOS WIRE FINISHER Arminda Whitlock, OT - 08/21/2013 8:51 AM CST 08/21/13 0820 Quick Adds Type of Visit Initial Occupational Therapy Evaluation Living Environment Living Arrangements house Number of Stairs To Enter Home 1 Number of Stairs Within Home 7 Living Environment Comment pt has 1 male roommate, and a girlfriend, states they can possibly assistas needed Self-Care Usual Activity Tolerance good Current Activity Tolerance good Activity/Exercise/Self-Care Comment pt is borrowing crutches from a friend (R) Functional Level Prior (R) Ambulation 0-->independent (R) Transferring 0-->independent (R) Toileting 0-->independent (R) Bathing 0-->independent (R) Dressing 0-->independent (R) Eating 0-->independent (R) Communication 0-->understands/communicates without difficulty (R) Swallowing 0-->swallows foods and liquids without difficulty (R) Cognition 0 - no cognition issues reported (R) Fall history within last six months no Prior Functional Level Comment pt baseline I with ADLs General Information Onset of Illness/Injury or Date of Surgery - Date 08/20/13 Referring Physician Jose Fonseca MD Patient/Family Goals Statement return home Pertinent History of Current Problem seen following R medial unicompartmental knee replacement Precautions/Limitations fall precautions Weight-Bearing Status - RLE weight-bearing as tolerated General Observations pt supine in bed, cooperative with OT Cognitive Status Examination Orientation orientation to person, place and time Level of Consciousness alert Follows Commands and Answers Questions 100% of the time;75% of the time;able to follow multi-step instructions;able to follow single-step instructions Personal Safety and Judgment at risk behaviors demonstrated (impulsive, frequently not using crutches) Cognitive Comment pt likely at baseline, requires additional safety cues Pain Assessment Patient Currently in Pain Yes, see Vital Sign flowsheet (at times with activity (08/30)) Range of Motion (ROM) ROM Quick Adds No deficits were identified Strength Strength Comments B UE grossly 5/5, no concerns Mobility Bed Mobility Comments SBA Transfer Skills Transfer Comments SBA, crutches Transfer Skill: Sit to Stand Level of [place]: Sit/Stand stand-by assist Physical Assist/Nonphysical Assist: Sit/Stand supervision;verbal cues Transfer Skill: Toilet Transfer Level of [place]: Toilet stand-by assist Physical Assist/Nonphysical Assist: Toilet supervision;verbal cues Balance Balance Comments decreased balance following R knee surgery Lower Body Dressing Level of [place]: Dress Lower Body minimum assist (75% patients effort) Physical Assist/Nonphysical Assist: Dress Lower Body verbal cues Toileting Level of [place]: Toilet stand-by assist Physical Assist/Nonphysical Assist: Toilet supervision;verbal cues Instrumental Activities of Daily Living (IADL) Previous Responsibilities meal prep;housekeeping;laundry;shopping;medication management;finances;driving;work Activities of Daily Living Analysis Impairments Contributing to Impaired Activities of Daily Living balance impaired;pain;post surgical precautions General Therapy Interventions Planned Therapy Interventions ADL retraining;transfer training Clinical Impression Criteria for Skilled Therapeutic Interventions Met yes, treatment indicated OT Diagnosis decreased ability to safely complete self cares I'lly Influenced by the following impairments pain, decreased strength and balance Functional limitations due to impairments required education in compensatory techniques Rehab Potential good, to achieve stated therapy goals Rehab potential affected by young and motivated Therapy Frequency daily Predicted Duration of Therapy Intervention (days/wks) one time eval and treat Anticipated Discharge Disposition home w/ home health Risks and Benefits of Treatment have been explained. Yes Patient, Family & other staff in agreement with plan of care Yes Clinical Impression Comments pt benefits from skilled OT to educate on safety and independence with ADL/IADLs Total Evaluation Time Total Evaluation Time (Minutes) 10 May Sims, RT - 08/20/2013 9:06 PM CST Pt strongly refused MDI tx. At this time. Will continue to monitor this shift. May Rojas SONG LYRICIST,UNLOADING CHECKER 08/20/2013 Marichuy Mendosa, PT - 08/20/2013 5:29 PM CST 08/20/13 1720 Quick Adds Type of Visit Initial PT Evaluation Living Environment Living Arrangements house Number of Stairs To Enter Home 1 Number of Stairs Within Home 7 (to main level) Living Environment Comment states he has no one that can help him at home Self-Care Usual Activity Tolerance good Current Activity Tolerance good Activity/Exercise/Self-Care Comment brought crutches here he borrowed, friend had surgery and thinkshe can borrow bathroom equip from (R) Functional Level Prior (R) Ambulation 0-->independent (R) Transferring 0-->independent General Information Onset of Illness/Injury or Date of Surgery - Date 08/20/[address] Jose Fonseca Patient/Family Goals Statement to return home tomorrow morning, [facility] home care set up for him already Pertinent History of Current Problem R knee DJD, s/p R medial unicompartmental knee replacement Precautions/Limitations (KI at night) Weight-Bearing Status - RLE weight-bearing as tolerated Cognitive Status Examination Orientation orientation to person, place and time Level of Consciousness alert Follows Commands and Answers Questions 100% of the time;able to follow single- step instructions Personal Safety and Judgment at risk behaviors demonstrated (not using crutches to walk in room) Pain Assessment Patient Currently in Pain Yes, see Vital Sign flowsheet (01/30) Range of Motion (ROM) ROM Comment approx 80 degrees flexion, bandage limiting him Strength Strength Comments good quad set, indep SLR and SAQ Bed Mobility Bed Mobility Comments indep Transfer Skills Transfer Comments SBA cues for safety Gait Gait Comments 10' indep with crutches, 2 point gait, WBAT, no buckling, KI not used, cues to use crutches as pt started to carry crutches and walk with antalgic gait Sensory Examination Sensory Perception Comments numbness in toes General Therapy Interventions Planned Therapy Interventions gait training;ROM;strengthening;transfer training Clinical Impression Criteria for Skilled Therapeutic Intervention yes, treatment indicated PT Diagnosis impaired mobility s/p knee surgery APTA Preferred Practice Pattern musculoskeletal Influenced by the following impairments pain, decreased ROM Functional limitations due to impairments impaired gait Rehab Potential good, to achieve stated therapy goals Rehab potential affected by impulsive, previously indep Therapy Frequency` 2 times/day Predicted Duration of Therapy Intervention (days/wks) 2 days Anticipated Discharge Disposition home w/ home health Risk & Benefits of therapy have been explained Yes Patient, Family & other staff in agreement with plan of care Yes Total Evaluation Time Total Evaluation Time (Minutes) 15 STOS WIRE FINISHER Sofia Marshall RN - 08/20/2013 4:12 PM CST Care Automobile Seat Cover Installer RN: Updating for Discharge planning, [facility] at [facility]pt[facility] Is set up for Home Care with with the anticipated DC date of FridayAugust 22. Please get DC ORDERS for HOME PT from Dr. Fonseca on discharge. And Fax these orders to [phone] ([facility]. ) ALSO SEE NOTES from 08/19 from Kelly Marshall DRY MOP MAKER CTS Care Transitions Team [phone] STOS WIRE FINISHER Kelly Randhawa LSW - 08/19/2013 5:03 PM CST SWS D: Pre-admission contact from pt for post surgery care discharge planning. Call received from pt who informed Sw of his scheduled surgery and anticipated overnight stay at [facility]. He was inquiring about possibility of going to a rehab facility, or services that would be available for him. Rehab facilitydiscussed and it was suggested by to pt that he contact his insurance prior to surgery to determine if her would have coverage for rehab stay and if there was any criteria that needed to be met. Pt spoke to insurance and he was informed that he would need 3 day hospital stay, based on anticipated stayper his discussion with MD, he would not meet that criteria, and he would be unable to private pay. Yesterday SW received information from Keely Sandhu from [facility] informing that she was contacted by surgeon's office with request for home PT services for pt on discharge. She has been in contact with pt, it is anticipated that start of care for pt's home PT will be on Friday. SW will follow-up with pt post-surgery to finalize home care services and assist with other discharge needs that may arise. STOS WIRE FINISHER documented in this encounter H&P Notes Smiley Pak - 08/18/2013 9:29 AM CST This note is for the purpose of making the H&P performed in clinic within the last 30 days available in the hospital surgical encounter. STOS WIRE FINISHER Source Note - Ian Kendrick MD - 08/16/2013 2:23 PM ASBESTOS WIRE FINISHER [facility] [id number] [place] [phone] Dept: [phone] PRE-OP EVALUATION: Today's date: 08/16/2013 Anita Christine (: 1955) presents for pre-operative evaluation assessment as requested by Dr. Jose Fonseca. He requires evaluation and anesthesia risk assessment prior to undergoing surgery/procedure for treatment of right knee . Proposed procedure: ARTHROPLASTY KNEE UNICOMPARTMENT Right Other Right Knee Uni Arthroplasty Surgeon Requests Choice Anesthesia Date of Surgery/ Procedure: 08-20-13 Time of Surgery/ Procedure: 6:00am Hospital/Surgical Facility: [facility] Primary Physician: Ian Kendrick Type of Anesthesia Anticipated: Patient states Spinal Patient has a Health Care Directive or Living Will: NO HPI: 1. NO - Do you have a history of heart attack, stroke, stent, bypass or surgery on an artery in the head, neck, heart or legs? 2. NO - Do you ever have any pain or discomfort in your chest? 3. NO - Have you ever had a severe pain across the front of your chest lasting for half an hour or more? 4. NO - Do you have a history of Congestive Heart Failure? 5. YES - Are you troubled by shortness of breath when: walking on the level/ up a slight hill/ at night? asthma 6. YES - Does your chest ever sound wheezy or whistling? asthma 7. YES - Do you currently have a cold, bronchitis or other respiratory infection? asthma 8. YES - Have you had a cold, bronchitis or other respiratory infection within the last 2 weeks? asthma 9. NO - Do you usually have a cough? 10. YES - Do you sometimes get pains in the calves of your legs when you walk? Pt has blood clots since 2006 11. YES - Do you or anyone in your family have previous history of blood clots? Since 2006 12. NO - Do you or does anyone in your family have a serious bleeding problem such as prolonged bleeding following surgeries or cuts? 13. NO - Have you ever had problems with anemia or been told to take iron pills? 14. NO - Have you had any abnormal blood loss such as black, tarry or bloody stools, or abnormal vaginal bleeding? 15. NO - Have you ever had a blood transfusion? 16. NO - Have you or any of your relatives ever had problems with anesthesia? 17. NO - Do you have sleep apnea, excessive snoring or daytime drowsiness? 18. NO - Do you have any prosthetic heart valves? 19. NO - Do you have prosthetic joints? 20. NO - Is there any chance that you may be ? MEDICAL HISTORY: Patient Active Problem List Diagnosis Date Noted ??? [facility] Custodial 07/16/2011 Priority: High EMERGENCY CARE PLAN Presenting Problem Signs and Symptoms Treatment Plan Questions or conerns during clinic hours I will call the clinic directly Questions or conerns outside clinic hours I will call the 24 hour nurse line at [phone] Patient needs to schedule an appointment I will call the 24 hour scheduling team at [phone] orclinic directly Same day treatment I will call the clinic first, nurse line if after hours, urgent care and expresscare if needed DX V65.8 REPLACED WITH [id number] [facility] (09/28/2012) ??? Personal history of DVT (deep vein thrombosis) 08/17/2013 Priority: Medium ? ? Hyperlipidemia LDL goal <160 08/14/2011 Priority: Medium ??? Mild persistent asthma 04/18/2010 Priority: Medium ??? Anticardiolipin Antibody Positive 12/14/2008 Priority: Medium DVT and PE ??? Edema Leg 11/20/2007 Priority: Medium ??? ULCERATIVE COLITIS NOS 10/20/2007 Priority: Medium Past Medical History Diagnosis Date ??? Unspecified hemorrhoids without mention of complication Hemorrhoids ??? Sleep apnea NOT BEING TREATED FOR THIS. ??? DVT (deep venous thrombosis) RIGHT LEG AFTER COLON SURGERY. ??? Ulcerative colitis Had Colectomy ??? Arthritis ??? Type 2 diabetes mellitus without complications Pre diabettes Past Surgical History Procedure Date ??? Colostomy ??? [place] filter ??? Resection abdominal perineal Current Outpatient Prescriptions Medication Sig ??? [START ON 08/20/2013] rivaroxaban ANTICOAGULANT (XARELTO) 10 MG TABS tablet Take 1 tablet (10 mg)by mouth daily (with dinner) ??? MELATONIN PO Take 5 mg by mouth nightly as needed ??? multivitamin, therapeutic with minerals (MULTI-VITAMIN) TABS Take 1 tablet by mouth daily ??? [place]-3 Fatty Acids (OMEGA-3 FISH OIL PO) Take 1 g by mouth 2 times daily (with meals) ??? Cyanocobalamin (VITAMIN B 12 PO) Take 500 mcg by mouth daily ??? Acetaminophen (TYLENOL PO) Take 500 mg by mouth every 8 hours as needed ??? testosterone (ANDROGEL 1.62% PUMP) 20.25 MG/ACT gel Apply 2 pumps (40.5 mg) topically daily Apply from dispenser to clean, dry, intact skin of the upper arms and shoulders. ??? sildenafil (VIAGRA) 50 MG tablet Take 0.5-1 tablets (25-50 mg) by mouth daily as needed for erectile dysfunction ??? loperamide (IMODIUM) 2 MG capsule Take 3-4 capsules (6-8 mg) by mouth 3 times daily ??? ipratropium (ATROVENT HFA) 17 MCG/ACT inhaler Inhale 2 puffs into the lungs 4 times daily ??? beclomethasone (QVAR) 80 MCG/ACT Inhaler Inhale 1 puff into the lungs 2 times daily ??? Furosemide (LASIX) 20 MG tablet Take 0.5-1 tablets by mouth. Take as needed for leg swelling. ??? triamcinolone (KENALOG) 0.1 % cream Apply topically 2 times daily. ??? HYDROcodone-acetaminophen (NORCO) 5-325 MG per tablet Take 1 tablet by mouth every 6 hours as needed ??? albuterol (PROAIR HFA) 108 (90 BASE) MCG/ACT inhaler Inhale 1-2 puffs into the lungs every 4 hours as needed. ??? ORDER FOR DME RINA hose or support stocking, knee high SZ M4 30-40 mmHg OTC products: None, except as noted above No Known Allergies Latex Allergy: NO History Substance Use Topics ??? Smoking status: Former Smoker -- 2.0 packs/day for 25 years Types: Cigarettes Quit date: 08/04/2006 ??? Smokeless tobacco: Never Used Comment: 2004 ??? Alcohol Use: Yes Comment: 4 BEERS A WEEK History Drug Use No REVIEW OF SYSTEMS: C: NEGATIVE for fever, chills, change in weight E/M: NEGATIVE for ear, mouth and throat problems R: NEGATIVE for significant cough or SOB CV: NEGATIVE for chest pain, palpitations or peripheral edema EXT: knee pain. right lower extremity edema has been chronic since original DVT EXAM: BP 142/83 Pulse 82 Temp 97.8 ??F (36.6 ??C) (Oral) Ht 5' 11.25 (1.81 m) Wt 242 lb 2 oz (109.827 kg) BMI 33.52 kg/m2 SpO2 96% GENERAL APPEARANCE: healthy, alert and no distress HENT: ear canals and TM's normal and nose and mouth without ulcers or lesions RESP: lungs clear to auscultation - no rales, rhonchi or wheezes CV: regular rate and rhythm, normal S1 S2, no S3 or S4 and no murmur, click or rub ABDOMEN: soft, nontender, no HSM or masses and bowel sounds normal NEURO: Normal strength and tone, sensory exam grossly normal, mentation intact and speech normal DIAGNOSTICS: EKG: appears normal, NSR, normal axis, normal intervals, no acute ST/T changes c/w ischemia, no LVH by voltage criteria, unchanged from previous tracings Hemoglobin Date Value Range Status 07/07/2013 15.0 13.3 - 17.7 g/dL Final ] Potassium Date Value Range Status 07/07/2013 3.8 3.4 - 5.3 mmol/L Final ] Creatinine Date Value Range Status 07/07/2013 0.94 0.66 - 1.25 mg/dL Final ] IMPRESSION: Reason for surgery/procedure: osteoarthritis right knee Diagnosis/reason for consult: evaluation for establishment of cardiac, pulmonary, and overall healthrisk status prior to undergoing surgery and associated anesthesia The proposed surgical procedure is considered INTERMEDIATE risk. REVISED CARDIAC RISK INDEX The patient has the following serious cardiovascular risks for perioperative complications such as (MO, PE, VFib and 3?? AV Block): No serious cardiac risks INTERPRETATION: 0 risks: Class I (very low risk - 0.4% complication rate) The patient has the following additional risks for perioperative complications: history of deep vein thrombosis with anticoagulation workup revealing anticardiolipin antibody positive 1. Preop general physical exam (V72.83) EKG 12-lead complete w/read - Clinics, rivaroxaban ANTICOAGULANT (XARELTO) 10 MG TABS tablet 2. OA (osteoarthritis) of knee (715.96) EKG 12-lead complete w/read - Clinics, rivaroxaban ANTICOAGULANT (XARELTO) 10 MG TABS tablet 3. Personal history of DVT (deep vein thrombosis) (V12.51) rivaroxaban ANTICOAGULANT (XARELTO) 10 MGTABS tablet 4. Elevated blood pressure reading without diagnosis of hypertension (796.2) RECOMMENDATIONS: --Approval given to proceed with proposed procedure, without further diagnostic evaluation --Because of DVT or PE history, patient should wear compression hose before & after surgery. He should start Xarelto 10mg 6-12 hours after surgery (following hemostasis) and continue once daily for30 days. This was communicated to the Orthopedic Surgery team and will be prescribed by them following surgery. --Patient is to take all scheduled medications on the day of surgery Signed Electronically by: Ian Kendrick MD Copy of this evaluation report is provided to requesting physician. STOS WIRE FINISHER documented in this encounter Consult Notes Elle Lema MD - 08/20/2013 3:12 PM CSTAssociated Order(s): HOSPITALIST IP CONSULT Hospitalist Consultation Anita Christine Date of : 1955 Age: [age] year old Date of Admission: 08/20/2013 Requesting Physician: Dr Fonseca Reason for consult: Post-op medical management I discussed with the patient, I examined the patient, I discussed with Lisa Coates PA-C and I agree with below note. Elle Puente MD Internal Medicine Assessment and Plan: This patient is a 57 year old male who is POD 0 s/p Rt knee uni arthroplasty. We were asked to consult on this patient for post-op management of chronic medical conditions. PMH includes hx DVT; thrombophilia with positive anticardiolipin antibodies; asthma; UC s/p colectomy; testosterone deficiency; pre-diabetes. 1) s/p Rt uni knee: pain control, PT/OT, prophylaxis per ortho. D/c per ortho. 2) Thrombophilia: prophylaxis per ortho (Lovenox & Xarelto). Recommend close monitoring for signs of clot as patient is positive for anticardiolipin antibodies. US LE scheduled for tomorrow. Ordered furosemide prn LE edema, hold if SBP < 100. 3) Asthma: continue Flovent, QVAR, albuterol prn. Encouraged use of IS. 4) UC s/p colectomy: imodium prn loose stools. 5) Increased insulin resistance (pre-diabetes): continue to monitor per Dr Fonseca's orders. Consider med-resist SSI if BG elevates >140. DVT prophylaxis: Lovenox, Xarelto Code status: FULL Dispo: per ortho History of Present Illness: This patient is a 57 year old male who is POD 0 s/p Rt knee uni arthroplasty. Surgery performed by Dr Fonseca; patient tolerated procedure well. We were asked to consult on this patient for post-op management of chronic medical conditions. PMH includes hx DVT; thrombophilia with positive anticardiolipin antibodies; asthma; UC s/p colectomy; testosterone deficiency; pre-diabetes. Patient has history DVT in 2006, was on Coumadin for 2 years and followed by hematology. Patient has known thrombophilia with positive anticardiolipin antibodies. Patient had not further episodes & coumadin was d/c by hematology in . Patient is scheduled for US LE tomorrow, ordered by Dr Fonseca, to r/o DVT in the post-op setting. Patient receiving Lovenox & Xarelto for DVT prophylaxis per ortho team. Patient denies f/c/s, CP, SOB, TAYLOR, dizziness or lightheadedness, abd pain, n/v, swelling in LE. Notes numbness in Rt LE as he received nerve block today prior to surgery. Patient denies hx AMI or CAD, CVA or TIA, HTN, DM, COPD. Patient is a former smoker, quit in 2004, and reports drinking 4 beers/wk. Past Medical History: Past Medical History Diagnosis Date ??? Unspecified hemorrhoids without mention of complication Hemorrhoids ??? Sleep apnea NOT BEING TREATED FOR THIS. ??? DVT (deep venous thrombosis) RIGHT LEG AFTER COLON SURGERY. ??? Ulcerative colitis Had Colectomy ??? Arthritis ??? Type 2 diabetes mellitus without complications Pre diabettes Past Surgical History: Past Surgical History Procedure Date ??? Colostomy ??? [place] filter ??? Resection abdominal perineal Social History: History Substance Use Topics ??? Smoking status: Former Smoker -- 2.0 packs/day for 25 years Types: Cigarettes Quit date: 08/04/2006 ??? Smokeless tobacco: Never Used Comment: 2004 ??? Alcohol Use: Yes Comment: 4 BEERS A WEEK Family History: I have reviewed this patient's family history family history includes Diabetes in his mother. Allergies: No Known Allergies Medications: Prior to Admission medications Medication Sig Last Dose Taking? Auth Provider MELATONIN PO Take 5 mg by mouth nightly as needed Past Week at Unknown Yes Reported, Patient multivitamin, therapeutic with minerals (MULTI-VITAMIN) TABS Take 1 tablet by mouth daily Past Week at Unknown Yes Reported, Patient [place]-3 Fatty Acids (OMEGA-3 FISH OIL PO) Take 1 g by mouth 2 times daily (with meals) Past Week at Unknown Yes Reported, Patient Cyanocobalamin (VITAMIN B 12 PO) Take 500 mcg by mouth daily Past Week at Unknown Yes Reported, Patient Acetaminophen (TYLENOL PO) Take 500 mg by mouth every 8 hours as needed 08/19/2013 at 1400 Yes Reported, Patient testosterone (ANDROGEL 1.62% PUMP) 20.25 MG/ACT gel Apply 2 pumps (40.5 mg) topically daily Apply from dispenser to clean, dry, intact skin of the upper arms and shoulders. 08/19/2013 at 1500 Yes Ian Kendrick MD loperamide (IMODIUM) 2 MG capsule Take 3-4 capsules (6-8 mg) by mouth 3 times daily 08/20/2013 at 530Yes Ian Kendrick MD ipratropium (ATROVENT HFA) 17 MCG/ACT inhaler Inhale 2 puffs into the lungs 4 times daily 08/19/2013 at 2100 Yes Ian Kendrick MD beclomethasone (QVAR) 80 MCG/ACT Inhaler Inhale 1 puff into the lungs 2 times daily 08/20/2013 at 500Yes Ian Kendrick MD Furosemide (LASIX) 20 MG tablet Take 0.5-1 tablets by mouth. Take as needed for leg swelling. Past Month at Unknown Yes Ian Kendrick MD triamcinolone (KENALOG) 0.1 % cream Apply topically 2 times daily. Yes Ian Kendrick MD HYDROcodone-acetaminophen (NORCO) 5-325 MG per tablet Take 1 tablet by mouth every 6 hours as needed08/19/2013 at 1900 Yes Ian Kendrick MD albuterol (PROAIR HFA) 108 (90 BASE) MCG/ACT inhaler Inhale 1-2 puffs into the lungs every 4 hours as needed. 08/20/2013 at 500 Yes Ian Kendrick MD rivaroxaban ANTICOAGULANT (XARELTO) 10 MG TABS tablet Take 1 tablet (10 mg) by mouth daily (with dinner) Ian Kendrick MD sildenafil (VIAGRA) 50 MG tablet Take 0.5-1 tablets (25-50 mg) by mouth daily as needed for erectiledysfunction Unknown at Unknown Ian Kendrick MD ORDER FOR DME RINA hose or support stocking, knee high SZ M4 30-40 mmHg Ian Kendrick MD Review of Systems: A comprehensive greater than 10 system review of systems was carried out. Pertinent positives and negatives are noted above. Otherwise negative for contributory info. Physical Exam: Vitals were reviewed Blood pressure 135/82, pulse 77, temperature 96.8 ??F (36 ??C), temperature source Temporal, resp. rate 16, height 1.803 m (5' 11), weight 109.77 kg (242 lb), SpO2 100.00%. Exam: GENERAL: Comfortable, no acute distress PSYCH: pleasant, A&O x3 HEENT: Normal conjunctiva, normal hearing, oropharynx normal. NECK: Supple, no neck vein distention or adenopathy HEART: Normal S1, S2 with no murmur, no pericardial rub, S3 or S4. LUNGS: Clear to auscultation, normal Respiratory effort. ABDOMEN: Soft, no hepatosplenomegaly, normal bowel sounds. EXTREMITIES: No pedal edema, +2 pulses bilateral and equal. Dressing c/d/i SKIN: Dry to touch, No rash, wound or ulcerations. NEUROLOGIC: Nonfocal with normal cranial nerve and motor power and sensation. Data: Past 24 hours labs, studies, and imaging were reviewed. Lab 08/20/13 0603 GLC -- BGM 107* Lab 08/20/13 0620 HGB 14.5 Recent Results (from the past 24 hour(s)) -XR KNEE PORT RT 1/2 VW Narrative: KNEE PORTABLE ONE TO TWO VIEWS August 20, 2013 10:55 AM HISTORY: Postoperative total knee. COMPARISON: 03/23/2012. FINDINGS: Postoperative changes right medial unicondylar arthroplasty, no apparent hardware complications. Chondrocalcinosis lateral meniscus. Soft tissue drain and skin elan noted. Impression: IMPRESSION: Right medial unicondylar arthroplasty. MD Lisa HARLEY PA-C STOS WIRE FINISHER documented in this encounter Nursing Notes Mell Alejandro - 08/20/2013 10:27 AM CST Assumed care of patient for 15 minute break of Janet Malik RN. STOS WIRE FINISHER Adolph Short RN - 08/20/2013 8:23 AM CST Irrisept solution with .05% chlorhexidine arlene. X 1000ml used to irrigate right knee prior to cementing implants. RAJEEV STOS WIRE FINISHER Mayra Weir RN - 08/20/2013 7:24 AM CST Pre op, pt questioning about previous DVT in surgical leg. Was cleared by both Dr. Haque and . Order for surgery clarified, pt only have a partial knee replacement. Ok to proceed with surgery. STOS WIRE FINISHER Nguyen Suarez RN - 08/04/2013 3:21 PM CST Nasal swab done and sent to lab for MRSA/MSSA culture. Patient would like to be contacted if positive or negative. Instructions provided if positive. Exidine give. Showering instructions given. STOS WIRE FINISHER documented in this encounter Miscellaneous Notes Plan of Care - Nuzhat Kirk RN - 08/21/2013 2:25 PM CST Problem: IP GENERAL POC-ADULT,OB,BEHAVIORAL FVCPM Goal: Individualization/Patient-Specific Goal (Adult,OB,Behavioral The patient and/or their customer counter representative will achieve their patient-specific goals related to the plan of care. The patient-specific goals include: Outcome: Adequate for Discharge Date Met: 08/21/13 [facility] Progress Note Assessment Assessment: BP 119/77 Pulse 72 Temp 96.3 ??F (35.7 ??C) (Oral) Resp 16 Ht 1.803 m (5' 11) Wt 109.77 kg (242 lb) BMI 33.77 kg/m2 SpO2 99% Lungs: are clear, encouraged to CDB and use incentive spirometer hourly BS:active, flatus noted, tolerating reg diet. Botello: using BR ind and voiding adequate amts per Pt CMS: intact with exception some numbeness distal to L knee joint, Pillow support under operative leg. Pt showered and new heather drsg applied. Pain: controlled with oral pain meds- oxycontin, atarax and oxycodone. Ice to operative extremity. Activity: Pt indep with toileting and bed mobility- Pt using crutches- gait steady. Pt dc'd to home at 1430- home services scheduled to visit on Friday. Discharge instructions reviewedand Pt verbalized understanding. Education resolved. 5 meds given to Pt and signed for which included narcotic pain meds-- Oxycontin and Percocet STOS WIRE FINISHER Plan of Care - Yaritza Blue PT - 08/21/2013 10:19 AM CST Problem: General Rehab Plan of Care Goal: Physical Therapy Goals The patient and/or their customer counter representative will achieve their patient-specific goals related to the plan of care. The patient-specific goals include: PT goals 1. Perform all bed mobility independently to allow safe negotiation of bedroom environment. Goal met 2. Transfer from sitting independently to allow for safe negotiation of living environment. Goal met 3. Achieve knee AAROM < 5 extension and > 90 flexion to allow for safe transfers and gait within the home. Partially met (15 - 90) 4. Ambulate at least 50 ft with SBA or less using assistive device properly to decrease risk for falls during gait in the home environment. Goal met 5. Negotiate 7 stairs with/without rail with min assist or less to allow for safe access into livingenvironment. Goal met FREQUENCY: BID PT- Pt discharging to home with recommendation of outpt PT with goals partially met. Please refer todischarge summary. Physical Therapy Discharge Summary Reason for therapy discharge: Discharged to home with outpatient therapy. Progress towards therapy goal(s): Goals partially met. Barriers to achieving goals: Decreased knee ROM post-op Therapy recommendation(s): Continued therapy is recommended. Rationale/Recommendations: Progressive strengthening and ROM to maximize independent function.. STOS WIRE FINISHER Plan of Care - Arminda Whitlock OT - 08/21/2013 9:05 AM CST Problem: General Rehab Plan of Care Goal: Occupational Therapy Goals The patient and/or their customer counter representative will achieve their patient-specific goals related to the plan of care. The patient-specific goals include: Pt to meet OT goals by 08/21/13... 1. Complete toilet transfer with home simulated set-up, SBA..GOAL MET 08/21/13 2. Complete tub/shower transfer, SBA..GOAL MET 08/21/13 3. Complete lower body dressing task, AE prn, SBA...GOAL MET 08/21/13 4. Demonstrate safety and balance with standing ADLs for at least 5 minutes..GOAL MET 08/21/13 Frequency: one time eval & treat Outcome: Completed Date Met: 08/21/13 OT: Order received, chart reviewed, evaluation and treatment complete; pt lives in house with 1 roommate; pt does not have anybody to consistently assist with ADL/IADLs; pt previously independent, currently limited by pain and decreased balance; pt demonstrated slight impulsivity and decreased safety at times during session, however able to complete tub/shower and toilet transfer, SBA as well as dressing tasks, AE prn, SBA; Recommend pt discharge home with home care Occupational Therapy Discharge Summary Reason for therapy discharge: Discharged to home with home therapy. Progress towards therapy goal(s): Goals met Therapy recommendation(s): Continued therapy is recommended. Rationale/Recommendations: improved safety and independence with ADL/IADLs. STOS WIRE FINISHER Plan of Care - Olivia Clemente RN - 08/21/2013 6:06 AM CST Problem: IP GENERAL POC-ADULT,OB,BEHAVIORAL FVCPM Goal: Individualization/Patient-Specific Goal (Adult,OB,Behavioral The patient and/or their customer counter representative will achieve their patient-specific goals related to the plan of care. The patient-specific goals include: Outcome: Improving T 97.3, HR 78, R 18, BP 121/86, 99% RA LS: clear BS: active, gas + Urine: up to bathroom voiding adequate amts CMS: Some swelling around right knee otherwise intact. Pain: under good control with prn pain meds and scheduled tylenol Activity: SBA with crutches Patient's Neo bandage and drain removed early this am. Aquacell dressing is in place. New dressing placed on drain site using sterile technique. He has been cooperative with cares and in pleasant mood.Immobilizer on throughout the night. Plans to DC home today. Will continue to monitor. STOS WIRE FINISHER Plan of Care - Ollie Lopez RN - 08/21/2013 12:10 AM CST Problem: IP GENERAL POC-ADULT,OB,BEHAVIORAL FVCPM Goal: Individualization/Patient-Specific Goal (Adult,OB,Behavioral The patient and/or their customer counter representative will achieve their patient-specific goals related to the plan of care. The patient-specific goals include: Outcome: No Change Declines scheduled meds. Afebrile. Pain controlled with PRN pain meds and ice. No nausea, toleratingdiet. LS clear bilaterally, O2 NC 2L sats mid 90s, encouraged CDB/IS hourly. BS hypo, flatus present, LBM 08/20, voiding clear urine without difficulty via urinal. CMS intact. Drsg CDI. Hemovac patent. Tolerated PT and CPM majority of shift. IV SL. Pleasant and cooperative, will make needs known, call light within reach. Declines personal alarm on, told pt not to get up or out of bed without assistance. STOS WIRE FINISHER Plan of Care - Marichuy Jean, PT - 08/20/2013 5:31 PM CST Problem: General Rehab Plan of Care Goal: Physical Therapy Goals The patient and/or their customer counter representative will achieve their patient-specific goals related to the plan of care. The patient-specific goals include: PT goals 1. Perform all bed mobility independently to allow safe negotiation of bedroom environment. 2. Transfer from sitting independently to allow for safe negotiation of living environment. 3. Achieve knee AAROM < 5 extension and > 90 flexion to allow for safe transfers and gait within the home. 4. Ambulate at least 50 ft with SBA or less using assistive device properly to decrease risk for falls during gait in the home environment. 5. Negotiate 7 stairs with/without rail with min assist or less to allow for safe access into livingenvironment. FREQUENCY: BID Outcome: Therapy, progress toward functional goals as expected PT: Eval complete, pt moving SBA to indep, needs cues to use crutches as pt tries to get around without them limping, educated to use them today for safety and not to get up on his own, able to SLR, immobilizer at night but not needed for gait. Pt hopes to discharge tomorrow morning. Has crutches here, has [facility] home care set up for therapies already. STOS WIRE FINISHER Plan of Care - Karime Quinn, RN - 08/20/2013 2:22 PM CST Problem: IP GENERAL POC-ADULT,OB,BEHAVIORAL FVCPM Goal: Individualization/Patient-Specific Goal (Adult,OB,Behavioral The patient and/or their customer counter representative will achieve their patient-specific goals related to the plan of care. The patient-specific goals include: Outcome: Improving Arrived from PACU at 12:45. Awake and alert. Dressing to leg D&I, immobiilizer in place. Has hemovac. Lungs clear, instructed IS. Given Oxycodone and Vistaril for pain control at 14:10 Botello removed in PACU , due to void. CPM started. STOS WIRE FINISHER Brief Op Note - Jose Fonseca MD - 08/20/2013 9:52 AM CST [facility] Brief Operative Note Pre-operative diagnosis: degenerative joint disease Post-operative diagnosis same Procedure: Procedure(s) with comments: ARTHROPLASTY KNEE UNICOMPARTMENT - Right Knee Uni Arthroplasty Surgeon(s): Surgeon(s) and Role: * Jose Fonseca MD - Primary * Adams Patel PA-C Estimated blood loss: * No values recorded between 08/20/2013 8:00 AM and 08/20/2013 9:52 AM * Specimens: * No specimens in log * Findings: See dictation STOS WIRE FINISHER Op Note - Jose Fonseca MD - 08/20/2013 9:47 AM CST PREOPERATIVE DIAGNOSIS: Right knee medial compartment degenerative joint disease. POSTOPERATIVE DIAGNOSIS: Right knee medial compartment degenerative joint disease. PROCEDURE: Unicompartmental arthroplasty, right knee medial compartment, using the [employer]va UKA system. SURGEON: Jose Fonseca MD REHABILITATION NURSE: Clarence Patel PA-C INDICATIONS: Mr. Anita Christine is a very pleasant 57-year-old gentleman who has had ongoing right knee pain on the medial side for some time now. Failing conservative management, we should proceed with operative intervention. He has isolated medial compartment degenerative changes as seen on both x-ray and MRI scan. He isolates his pain to his medial compartment. 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 Ihad a long discussion with him regarding treatment options. Given his activity level, age and the nature of his degenerative changes, I think he would benefit from unicompartmental knee arthroplasty onhis right knee. He understands the risks, benefits and alternatives and wishes to proceed with surgery. NARRATIVE OF EVENTS: After thorough preoperative evaluation and proper identification of patient's extremity to be operated on, Mr. Christine was taken to the operating room, where he underwent a general anesthetic. He was placed supine on the operating table and his right leg was prepped and draped in the usual sterile manner. After an appropriate surgical pause to confirm the patient's extremity to be operated on and 30 minutes after the patient received 3 grams of Ancef, his right knee was exsanguinated and tourniquet was raised to 300 mmHg in his right upper thigh. We approached his right knee through a midline incision centered just medial to the patella. Skin and soft tissue were sharply dissected down to the patella, where a median parapatellar arthrotomy was performed. We subluxed the patellalaterally and evaluated the knee. We performed a moderate medial release in accordance with our preoperative templating. His ACL was intact. He had some mild early chondral changes on the medial side of the patella, but the remainder of his patellofemoral articulation was well preserved as was his lateral compartment. His medial compartment showed fairly significant degenerative changes with osteophyte formation and sclerosis throughout the entire distal femur, extending posteriorly and along the entire medial tibial plateau. Decision was made at this point to proceed with the unicompartmental kneearthroplasty with a [employer] UKA system, and so we made our tibial cut perpendicular to the long axisof the tibia using an extramedullary guide. Once this was done, we then sized our gaps. We felt we had an 8 mm gap in both flexion and extension. We made a 0 cut our distal femur perpendicular to the long axis of the tibia and the mechanical axis of the knee. Once this cut was made, we made our chamfer and posterior resections as well and then sized our femur. It sized to fit a size 5 [place] [employer] UKA component. We found that with a 4 tibial component, which held it fit the tibia nicely with an8 mm thick polyethylene insert, this gave us good stability and full range of motion. At this point,we then drilled for our femoral lugs and we punched for our tibial keel. We then cemented in our final components, after thoroughly irrigating the knee, using one batch of Simplex cement with tobramycin. The implant cemented in quite nicely. Once the cement had cured, we removed all the excess cement from the knee, thoroughly irrigated the knee again, this time with IrriSept solution, and retrialed our polyethylene inserts and found an 8 mm insert gave us the best stability and full range of motion.This was then impacted into position. We thoroughly irrigated the knee one more time and closed the arthrotomy with #1 and 0 Vicryl sutures, placed one drain deep to the arthrotomy and closed the skin and soft tissues with absorbable sutures and elan in the skin. The patient was placed in a well-padded postoperative dressing, and he was taken to the recovery room in stable condition. He tolerated the procedure without difficulty. JOSE FONSECA MD MT: [id number] Name: ANITA CHRISTINE MRN: [id number] Account: [id number] : 1955 Procedure Date: 08/20/2013 Document: [id number] STOS WIRE FINISHER Pharmacy-Admission Medication History - Audrey Joseph RPH - 08/10/2013 6:41 PM CST Pharmacy reviewed prior to admission med list from pre-admitting rn. STOS WIRE FINISHER documented in this encounter Plan of Treatment Upcoming Encounters Date Type Specialty Care Team Description 05/20/2022 Lab Lab documented as of this encounter Procedures Procedure Name Priority Date/Time Associated Comments Diagnosis US LOWER EXTREMITY Routine 08/21/2013 9:53 Result s for this VENOUS DUPLEX RIGHT AM ASBESTOS WIRE FINISHER procedur e are in the results section. HEMOGLOBIN Routine 08/21/2013 5:55 Results for this AM ASBESTOS WIRE FINISHER procedure are i n the results section. GLUCOSE Routine 08/21/2013 5:55 Results for this AM ASBESTOS WIRE FINISHER procedure are i n the results section. GLUCOSE BY METER Routine 08/20/2013 8:36 Results for this PM ASBESTOS WIRE FINISHER procedure are i n the results section. GLUCOSE BY METER Routine 08/20/2013 4:42 Results for this PM [employer]BESTOS WIRE FINISHER procedure are i n the results section. XR KNEE PORT RIGHT 1/ STAT 08/20/2013 10:55 R esults for this VIEWS AM ASBESTOS WIRE FINISHER procedure are i n the results section. ARTHROPLASTY, KNEE, 08/20/2013 7:30 Cubital tunnel UNICOMPARTMENTAL AM ASBESTOS WIRE FINISHER syndrom, degenerative joint disease Special Needs Joint class 08/12/13. KRISHNAMURTHY to swab 08/04/2013 6'0, 238# stated POTASSIUM STAT 08/20/2013 6:20 AM ASBESTOS WIRE FINISHER Resul ts for this procedure are in the results sec tion. PLATELET COUNT Routine 08/20/2013 6:20 AM ASBESTOS WIRE FINISHER Res ults for this procedure are in the results sec tion. HEMOGLOBIN STAT 08/20/2013 6:20 AM ASBESTOS WIRE FINISHER Resul ts for this procedure are in the results sec tion. CREATININE STAT 08/20/2013 6:20 AM ASBESTOS WIRE FINISHER Resul ts for this procedure are in the results sec tion. GLUCOSE BY METER Routine 08/20/2013 6:03 AM ASBESTOS WIRE FINISHER R esults for this procedure are in the results sec tion. documented in this encounter Results US Lower Extremity Venous Duplex Right (08/21/2013 9:53 AM ASBESTOS WIRE FINISHER) Anatomical Region Laterality Modality Lower Extremity Ultrasound Specimen (Source) Anatomical Location Collection Method / Collectio n Time Received Time / Laterality Volume Impressions 08/21/2013 9:59 AM ASBESTOS WIRE FINISHER IMPRESSION: 1. Stable nonocclusive thrombus in the s uperficial femoral and popliteal veins which is unchanged from 06/02/09. 2. No evidence for acute deep venous thr ombosis. 3. Fluid collection in the popliteal spa ce which may be postoperative fluid or popliteal cyst. LENARD MITCHELL MD Narrative 08/21/2013 9:59 AM ASBESTOS WIRE FINISHER US LOWER EXTREMITY VENOUS DUPLEX RIGHT ??08/21/2013 9:53 AM HISTORY: History of DVT. Postop swelling following knee arthroplasty.. COMPARISON: 06/02/09. FINDINGS: Nonocclusive thrombus again no rina in the superficial femoral vein and popliteal vein which has not ch anged appreciably since 06/02/09 and is consistent with chronic thrombus. No evidence for acute deep venous thrombosis. Deep veins of the calf are patent. 3.3 x 2.0 x 1.9 cm fluid collection in the pop liteal space which could represent a popliteal cyst. In light of the recent surgery, this also could represent a seroma or postoperativ e fluid. Remainder of the scan is unremarkable. Procedure Note Lenard Mitchell MD - 08/21/2013F ormatting of this note might be different from the original. US LOWER EXTREMITY VENOUS DUPLEX RIGHT 9:53 AM HISTORY: History of DVT. Postop swelling following knee arthroplasty.. COMPARISON: 06/02/09. FINDINGS: Nonocclusive thrombus again no rina in the superficial femoral vein and popliteal vein which has not ch anged appreciably since 06/02/09 and is consistent with chronic thrombus. No evidence for acute deep venous thrombosis. Deep veins of the calf are patent. 3.3 x 2.0 x 1.9 cm fluid collection in the pop liteal space which could represent a popliteal cyst. In light of the recent surgery, this also could represent a seroma or postoperativ e fluid. Remainder of the scan is unremarkable. IMPRESSION IMPRESSION: 1. Stable nonocclusive thrombus in the s uperficial femoral and popliteal veins which is unchanged from 06/02/09. 2. No evidence for acute deep venous thr ombosis. 3. Fluid collection in the popliteal spa ce which may be postoperative fluid or popliteal cyst. LENARD MITCHELL MD Jose Fonseca MD IMG US ORDERABLES (ABNORMAL) Hemoglobin (08/21/2013 5:55 AM ASBESTOS WIRE FINISHER) P athologist Signature Hemoglobin 12.9 (L) 13.3 - 17.7 [place] g/dL [facility] Specimen Anatomical Collection Method Collection Time Receive d Time (Source) Location / / Volume Laterality Blood specimen 08/21/2013 5:55 AM 014 6:45 (specimen) ASBESTOS WIRE FINISHER AM ASBESTOS WIRE FINISHER Jose Fonseca MD LAB - BLOOD ORDERABLES Performing Organization Address City/[facility]/ZIP Code Phon e Number [facility] [address], [place] [address] [facility] Glucose (08/21/2013 5:55 AM ASBESTOS WIRE FINISHER) athologist Signature Glucose 91 60 - 99 [facility] mg/dL [facility] Specimen Anatomical Collection Method Collection Time Receive d Time (Source) Location / / Volume Laterality Blood specimen 08/21/2013 5:55 AM 014 6:45 (specimen) ASBESTOS WIRE FINISHER AM ASBESTOS WIRE FINISHER Horacio Geller MD LAB - BLOOD ORDERABLES Performing Organization Address [facility]/RUST Code Phon e Number [facility] [address] [place], [place] [address] [facility] (ABNORMAL) Glucose by meter (08/20/2013 8:36 PM ASBESTOS WIRE FINISHER) athologist Signature Glucose 112 (H) 60 - 99 PO[facility] CARE mg/dL TEST, GLUCOSE Specimen Anatomical Collection Method Collection Time Receive d Time (Source) Location / / Volume Laterality 08/20/2013 8:36 PM 4 8:40 ASBESTOS WIRE FINISHER PM ASBESTOS WIRE FINISHER Horacio LILLY - BEAKER POCT Performing Organization Address [facility]/ZIP Code Phon e Number [facility]V POINT OF CARE TEST, GLUCOSE POINT OF CARE TEST, GLUCOSE (ABNORMAL) Glucose by meter (08/20/2013 4:42 PM ASBESTOS WIRE FINISHER) P athologist Signature Glucose 114 (H) 60 - 99 PO[facility] CARE mg/dL TEST, GLUCOSE Specimen Anatomical Collection Method Collection Time Receive d Time (Source) Location / / Volume Laterality 08/20/2013 4:42 PM 4 4:45 ASBESTOS WIRE FINISHER PM ASBESTOS WIRE FINISHER Horacio Geller MD LAB - BEROMARIO POCT Performing Organization Address [facility]/ZIP [facility] Phon e Number FV POINT OF CARE TEST, GLUCOSE POINT OF CARE TEST, GLUCOSE XR Knee Port Right 1/2 Views (08/20/2013 10:55 AM ASBESTOS WIRE FINISHER) Anatomical Region Laterality Modality Right Knee Right Computed Radiography Specimen (Source) Anatomical Location Collection Method / Collectio n Time Received Time / Laterality Volume Impressions 08/20/2013 12:30 PM ASBESTOS WIRE FINISHER IMPRESSION: Right medial unicondylar arthroplasty. ?? LAY COOPER MD Narrative 08/20/2013 12:30 PM ASBESTOS WIRE FINISHER KNEE PORTABLE ONE TO TWO VIEWS August 20, 2013 10:55 AM ?? HISTORY: Postoperative total knee. COMPARISON: 03/23/2012. FINDINGS: Postoperative changes right me dial unicondylar arthroplasty, no apparent hardware complications. Kieran drocalcinosis lateral meniscus. Soft tissue drain and skin sta ples noted. Procedure Note Lay Cooper MD - 08/20/2013Format ting of this note might be different from the original. KNEE PORTABLE ONE TO TWO VIEWS August 20, 2013 10:55 AM HISTORY: Postoperative total knee. COMPARISON: 03/23/2012. FINDINGS: Postoperative changes right me dial unicondylar arthroplasty, no apparent hardware complications. Kieran drocalcinosis lateral meniscus. Soft tissue drain and skin sta ples noted. IMPRESSION IMPRESSION: Right medial unicondylar art hroplasty. LAY COOPER MD Jose Fonseca MD IMG DIAGNOSTIC IMAGING CAREN IZAGUIRRE Platelet count (08/20/2013 6:20 AM ASBESTOS WIRE FINISHER) athologist Signature Platelet Count 171 150 - [address] [place] [id number] Specimen Anatomical Collection Method Collection Time Receive d Time (Source) Location / / Volume Laterality 08/20/2013 6:20 AM 201 4 6:33 ASBESTOS WIRE FINISHER AM ASBESTOS WIRE FINISHER Morgan Waggoner MD LAB - BLOOD ORDERABLES Performing Organization Address City/State/ZIP Code Phon e Number [facility] [address], [place] [address] [facility] Potassium (08/20/2013 6:20 AM ASBESTOS WIRE FINISHER) P athologist Signature Potassium 4.0 3.4 - 5.3 [facility] mmol/[facility] Specimen Anatomical Collection Method Collection Time Receive d Time (Source) Location / / Volume Laterality Blood specimen 08/20/2013 6:20 AM 014 6:33 (specimen) ASBESTOS WIRE FINISHER AM ASBESTOS WIRE FINISHER Morgan Waggoner MD LAB - BLOOD ORDERABLES Performing Organization Address City/[facility]/ZIP Code Phon e Number [facility] [address], [place] [address] [facility] Creatinine (08/20/2013 6:20 AM ASBESTOS WIRE FINISHER) athologist Signature Creatinine 0.89 0.66 - [facility] 1.25 mg/dL [facility] GFR Estimate 89 >60 [place] mL/min/1.[address] LAB GFR Estimate If >90 >60 [place] Black mL/min/1.[address] [place] [address] LAB Specimen Anatomical Collection Method Collection Time Receive d Time (Source) Location / / Volume Laterality Blood specimen 08/20/2013 6:20 AM 014 6:33 (specimen) ASBESTOS WIRE FINISHER AM ASBESTOS WIRE FINISHER Morgan Waggoner MD LAB - BLOOD ORDERABLES Performing Organization Address [facility]/ZIP Code [facility] e Number [facility] [address], [place] [phone] [place] [address] LAB Hemoglobin (08/20/2013 6:20 AM ASBESTOS WIRE FINISHER) athologist Signature Hemoglobin 14.5 13.3 - 17.7 [facility] g/dL [facility] Specimen Anatomical Collection Method Collection Time Receive d Time (Source) Location / / Volume Laterality Blood specimen 08/20/2013 6:20 AM 014 6:33 (specimen) ASBESTOS WIRE FINISHER AM ASBESTOS WIRE FINISHER Morgan Waggoner MD LAB - BLOOD ORDERABLES Performing Organization Address City/[facility]/ZIP [facility] [address], [place] [address] [facility] (ABNORMAL) Glucose by meter (08/20/2013 6:03 AM ASBESTOS WIRE FINISHER) athologist Signature Glucose 107 (H) 60 - 99 POINT OF CARE mg/dL TEST, GLUCOSE Specimen Anatomical Collection Method Collection Time Receive d Time (Source) Location / / Volume Laterality 08/20/2013 6:03 AM 4 6:05 ASBESTOS WIRE FINISHER AM ASBESTOS WIRE FINISHER Horacio Geller MD LAB - BEAKER POCT Performing Organization Address City/State/ZIP Code Phon e Number [facility] POINT OF CARE TEST, GLUCOSE POINT OF CARE TEST, GLUCOSE documented in this encounter Visit Diagnoses Diagnosis Mild persistent asthma - Primary Unspecified asthma Edema leg Edema Cervical radiculopathy Brachial neuritis or radiculitis nos ULCERATIVE COLITIS NOS Ulcerative colitis, unspecified Testosterone deficiency Other testicular hypofunction Lichen planus Personal history of DVT (deep vein throm bosis) Personal history of venous thrombosis an d embolism OA (osteoarthritis) of knee Osteoarthrosis, unspecified whether gene ralized or localized, lower leg Preop general physical exam Other specified pre-operative examinatio n Status post unicompartmental knee replac ement, right Knee joint replacement by other means documented in this encounter Administered Medications Inactive Administered Medications - up to 3 most recent administrations Medication Order MAR Action Action Date Dose Rate Site 0.9 % sodium chloride IV Rate/Dose Verify 08/20/2013 5:00 PM 1,000 mLs 125 mL/hr solution ASBESTOS WIRE FINISHER at 125 mL/hr, Intravenous, CONTINUOUS, Change to saline lock when PO well tolerated., Post-procedure, Starting on Fri08/20/13 at 1300, Until 08/21/13 at 1628 New Bag 08/20/2013 1:11 PM ASBESTOS WIRE FINISHER 1,000 mLs 125 mL/hr acetaminophen (OFIRMEV) 10 mg/mL Given 08/20/2013 10:[address] 1,000 mg 400 mL/hr infusion 1,000 mg 1,000 mg, Intravenous, at 400 mL/hr, ONCE PRN, other, if pain relief not effective after narcotic dose, Administer over 15 Minutes, Starting on Fri08/20/13 at 0948, For 1 dose, Maximum dose of acetaminophen is 4000 mg from all sources., PACU acetaminophen (TYLENOL) tablet 650 mg Given 08/21/2013 12:43 PM ASBESTOS WIRE FINISHER 650 mg 650 mg, Oral, EVERY 6 HOURS, First dose on Fri08/20/13 at 1800, Maximum acetaminophen dose from all sources = 75 mg/kg/day not to exceed 4 grams/day., Post-procedure Given 08/21/2013 5:59 AM ASBESTOS WIRE FINISHER 650 mg Given 08/21/2013 12:32 AM ASBESTOS WIRE FINISHER 650 mg ceFAZolin (ANCEF) IVPB 2 g (pre-mix) New Bag 08/21/2013 1:32 AM ASBESTOS WIRE FINISHER 2 g 200 mL/hr Routine, 2 g, Intravenous, EVERY 8 HOURS, First dose on Fri08/20/13 at 1800, For 2 doses, First post-op dose due 8 hours after intra-op dose, see eMAR. , Indications: Perioperative Pharmacoprophylaxis, Post-procedure New Bag 08/20/2013 7:03 PM ASBESTOS WIRE FINISHER 2 g 200 mL/hr celecoxib (celeBREX) capsule 200 mg Given 08/21/2013 8:28 AM ASBESTOS WIRE FINISHER 200 mg 200 mg, Oral, 2 TIMES DAILY, First dose on 08/21/13 at 0900, For 4 doses, For patients less than 65 years old. Do not give until Ketorolac dosing is complete or if ibuprofen ordered., Post-procedure celecoxib (celeBREX) capsule 400 mg Given 08/20/2013 6:38 AM ASBESTOS WIRE FINISHER 400 mg 400 mg, Oral, ONCE, On Fri08/20/13 at 0615, For 1 dose, Pre-procedure cyanocolbalamin (vitamin B-12) tablet 500 Given 08/21/2013 8:29 AM ASBESTOS WIRE FINISHER 500 mcg mcg 500 mcg, Oral, DAILY, First dose on 08/21/13 at 0900, Post-procedure enoxaparin (LOVENOX) injection 40 mg Given 08/21/2013 8:28 AM ASBESTOS WIRE FINISHER 40 mg 40 mg, Subcutaneous, EVERY 24 HOURS, First dose on 08/21/13 at 0900, Check to make sure start date/time is 12-24 hours post op unless documented complication, AND no sooner than 22 hours post op if spinal anesthesia used. Continue until discharge to home. HOLD if platelet count falls below 50% of baseline or <100,000/??L and notify MD., Post-procedure fentaNYL (SUBLIMAZE) injection 25-50 mcg Given 08/20/2013 10:34 AM ASBESTOS WIRE FINISHER 50 mcg 25-50 mcg, Intravenous, EVERY 2 MIN PRN, other, acute pain, Starting on Fri08/20/13 at 0948, MAX cumulative dose = 250 mcg. Use Fentanyl initially, as a short acting agent for acute pain control. If insufficient, or a longer acting agent is needed, begin Morphine or Hydromorphone if ordered., PACU Given 08/20/2013 10:18 AM ASBESTOS WIRE FINISHER 50 mcg fluticasone (FLOVENT DISKUS) 250 mcg/puff Given 08/21/2013 8:33 AM ASBESTOS WIRE FINISHER 250 mcg inhaler 250 mcg 250 mcg (1 puff), Inhalation, 2 TIMES DAILY, First dose on Fri08/20/13 at 2100, Auto sub Flovent diskus for Qvar , Post-procedure gabapentin (NEURONTIN) tablet 600 mg Given 08/20/2013 6:37 AM ASBESTOS WIRE FINISHER 600 mg 600 mg, Oral, ONCE, On Fri08/20/13 at 0615, For 1 dose, Pre-procedure HYDROmorphone (DILAUDID) injection 0.2 m g Given 08/20/2013 4:46 PM ASBESTOS WIRE FINISHER 0.2 mg 0.2 mg, Intravenous, EVERY 30 MIN PRN, moderate to severe pain, Starting on Fri08/20/13 at 1255, Post-procedure HYDROmorphone (DILAUDID) injection 0.3-0.5 Given 08/20/2013 11:03 AM ASBESTOS WIRE FINISHER 0.5 mg mg 0.3-0.5 mg, Intravenous, EVERY 5 MIN PRN, moderate to severe pain, acute pain. May administer if RR is > 10 , Starting on Fri08/20/13 at 0948, If fentanyl is also ordered, use HYDROmorphone if pain control insufficient with fentanyl or a longer acting agent is needed. Max cumulative dose = 2 mg , PACU Given 08/20/2013 10:24 AM ASBESTOS WIRE FINISHER 0.5 mg hydrOXYzine (ATARAX) tablet 25 mg Given 08/21/2013 10:19 AM ASBESTOS WIRE FINISHER 25 mg 25 mg, Oral, 3 TIMES DAILY PRN, other, pain, Starting on Fri08/20/13 at 1255, Post-procedure Given 08/21/2013 4:21 AM ASBESTOS WIRE FINISHER 25 mg Given 08/20/2013 10:09 PM ASBESTOS WIRE FINISHER 25 mg ondansetron (ZOFRAN) injection 4 mg Given 08/21/2013 4:20 AM ASBESTOS WIRE FINISHER 4 mg 4 mg, Intravenous, EVERY 6 HOURS, Administer over 2-5 Minutes, First dose on Fri08/20/13 at 1600, For 4 doses, Post-procedure oxyCODONE (OxyCONTIN) 12 hr tablet 10 mg Given 08/20/2013 6:38 AM ASBESTOS WIRE FINISHER 10 mg 10 mg, Oral, ONCE, On Fri08/20/13 at 0615, For 1 dose, DO NOT CRUSH., Pre-procedure oxyCODONE (OxyCONTIN) 12 hr tablet 20 mg Given 08/21/2013 8:28 AM ASBESTOS WIRE FINISHER 20 mg 20 mg, Oral, EVERY 12 HOURS, First dose on Fri08/20/13 at 2000, Post-procedure Given 08/20/2013 8:06 PM ASBESTOS WIRE FINISHER 20 mg oxyCODONE (ROXICODONE) immediate release Given 08/21/2013 12:43 PM ASBESTOS WIRE FINISHER 10 mg tablet 5-10 mg 5-10 mg, Oral, EVERY 3 HOURS PRN, moderate to severe pain, Starting on Fri08/20/13 at 1255, Post-procedure Given 08/21/2013 10:04 AM ASBESTOS WIRE FINISHER 10 mg Given 08/21/2013 7:07 AM ASBESTOS WIRE FINISHER 10 mg ranitidine (ZANTAC) tablet 150 mg Given 08/21/2013 8:28 AM ASBESTOS WIRE FINISHER 150 mg 150 mg, Oral, 2 TIMES DAILY, First dose on Fri08/20/13 at 2100, Post-procedure senna-docusate (SENOKOT-S;PERICOLACE) Given 08/21/2013 8:[address] 1 tablet 8.6-50 MG per tablet 1-2 tablet 1-2 tablet, Oral, 2 TIMES DAILY, First dose on Fri08/20/13 at 2100, Start with 1 tablet PO BID, If no bowel movement in 24 hours, increase to 2 tablets po BID. Hold for loose stools. Preferred agent for constipation related to opioids., Post-procedure sodium chloride (PF) 0.9% PF flush 3 mL Given 08/21/2013 4:20 AM ASBESTOS WIRE FINISHER 3 mLs 3 mL, Intravenous, EVERY 8 HOURS, First dose on Fri08/20/13 at 1300, to lock peripheral IV dormant line. Also Ordered Q1H PRN, Post-procedure sodium chloride 0.9 % BOLUS New Bag 08/20/2013 1:11 PM ASBESTOS WIRE FINISHER 1,000 m Ls 500 mL/hr 1,000 mL Intravenous, 1,000 mL, ONCE, at 500 mL/hr, Administer over 2 Hours, On Fri08/20/13 at 1300, For 1 dose, Give over 2 hours as soon as pt arrives on floor, Post-procedure testosterone (ANDROGEL 1.62% PUMP) GEL 40.5 Given 06/2013 10:06 AM ASBESTOS WIRE FINISHER 40.5 mg mg 40.5 mg (2 pump), Topical, DAILY, First dose on Fri08/20/13 at 1800, Patient will need to bring in own home med supply if wants to use in hospital, Post-procedure Given 08/20/2013 7:23 PM ASBESTOS WIRE FINISHER 40.5 mg documented in this encounter Active and Recently Administered Medications Times are shown in ASBESTOS WIRE FINISHER. Scheduled Medication Order 08/19/2013 08/20/2013 08/21/2013 acetaminophen (TYLENOL) tablet 650 mg (CANCELED) 1653 (Given - Provider: Perla Lopez RN - Comment: pt requesting take early, c/o headache)1800 (Canceled Entry - Provider: Ollie Lopez RN) 0032 (Given - Provider: Vicky perry LPN)0559 (Given - Provider: Vicky Gore LPN)1243 (Given - Provider: Nolvia Garcia LPN) 650 mg, Oral, EVERY 6 HOURS, First dose on Fri08/20/13 at 1800, Maximum acetaminophen dose from all sources = 75 mg/kg/day not to exceed 4 grams/day., Post-procedure ceFAZolin (ANCEF) 3 g in NaCl 0.9% 100 mL injection (COMPLET ED) 0733 (Given - Provider: Jovita Figueroa APRN MORTGAGE LOAN ASSISTANT)1001 (Given - Provider: Jovita Figueroa APRN MORTGAGE LOAN ASSISTANT) 3 g, Intravenous, PRE-OP/PRE-PROCEDURE, For 1 dose, Give first dose within 1 hour PRIOR to incision., Indications: Surgical Prophylaxis, Pre-procedure ceFAZolin (ANCEF) IVPB 2 g (pre-mix) (COMPLETED) 1903 (New Bag - Provider: Perla Lopez RN) 0132 (New Bag - Provider: Olivia durbin RN) 2 g, Intravenous, EVERY 8 HOURS, First d ose on Fri08/20/13 at 1800, For 2 doses, First post-op dose due 8 hours after intra-op dose, see eMAR. , Indications: Surgical Prophylaxis, Post-procedure celecoxib (celeBREX) capsule 200 mg 08 (Given - Provider: Nolvia Garcia LPN) 200 mg, Oral, 2 TIMES DAILY, First dose on Fri08/21/13 at 0900, For 4 doses, For patients less than 65 years old. Do not give until Ketorolac dosing is complete or if ibuprofen ordered., Post-procedure celecoxib (celeBREX) capsule 400 mg (COMPLETED) 637 (Given - Provider: Saniya Cates RN) 400 mg, Oral, ONCE, Fri08/20/13 at 0615, For 1 dose, Pre-procedu re cyanocolbalamin (vitamin B-12) tablet 500 mcg (CANCELED) 08 (Given - Provider: Nolvia Garcia LPN) 500 mcg, Oral, DAILY, First dose on 08/21/13 at 0900, Post-pro cedure enoxaparin (LOVENOX) injection 40 mg (CANCELED) 827 (Given - Provider: Nolvia Garcia LPN) 40 mg, Subcutaneous, EVERY 24 HOURS, Fir st dose on 08/21/13 at 0900, Check to make sure start date/time is 12-24 hours post op unless documented complication, AND no sooner than 22 hours post op if sp inal anesthesia used. Continue until dis charge to home. HOLD if platelet count falls below 50% of baseline or <100,000/??L and notify MD., Post-procedure fluticasone (FLOVENT DISKUS) 250 mcg/puff inhaler 250 mcg (C ANCELED) 2100 (Canceled Entry - Provider: Ollie Lopez RN - Comment: pt stated he will used his own supply) 08 (Given - Provider: Nolvia carreon LPN) 1 puff = 250 mcg, Inhalation, 2 TIMES DA ALDO, First dose on Fri08/20/13 at 2100, Auto sub Flovent diskus for Qvar , Post-procedure gabapentin (NEURONTIN) tablet 600 mg (COMPLETED) 636 (Given - Provider: Saniya Cates RN) 600 mg, Oral, ONCE, Fri08/20/13 at 0615, For 1 dose, Pre-procedu re ondansetron (ZOFRAN) injection 4 mg (CANCELED) 164 (Not Given - Provider: Perla Lopez RN - Reason: Patient/family refused - Comment: pt not nauseated)2214 (Not Given - Provider: Ollie Lopez RN - Reason: Patient/family refused - Comment: pt not nauseated) 0420 (Given - Provider: Olivia Clemente RN)1005 (Not Given - Provider: Nolvia Garcia LPN - Reason: Patient/family refused) 4 mg, Intravenous, EVERY 6 HOURS, for 2 Minutes, First dose on Fri08/20/13 at 1600, For 4 doses, Post-procedure oxyCODONE (OxyCONTIN) 12 hr tablet 10 mg (COMPLETED) 06 (Given - Provider: Saniya Cates RN) 10 mg, Oral, ONCE, Fri08/20/13 at 0615, For 1 dose, DO NOT CRUSH., Pre-procedure oxyCODONE (OxyCONTIN) 12 hr tablet 20 mg (CANCELED) 2005 (Given - Provider: Ollie Lopez RN) 08 (Given - Provider: Nolvia carreon LPN) 20 mg, Oral, EVERY 12 HOURS, First dose on Fri08/20/13 at 20 00, Post-procedure ranitidine (ZANTAC) tablet 150 mg (CANCELED) 2009 (Not Given - Provider: Perla Lopez RN - Reason: Patient/family refused) 0828 (Given - Provider: Nolvia Garcia LPN) 150 mg, Oral, 2 TIMES DAILY, First dose on Fri08/20/13 at 21 00, Post-procedure senna-docusate (SENOKOT-S;PERICOLACE) 8. 6-50 MG per tablet 1-2 tablet (CANCELED) 2009 (Not Given - Provider: Ollie Lopez RN - Reason: Patient/family refused) 0828 (Given - Provider: Nolvia Garcia LPN) 1-2 tablet, Oral, 2 TIMES DAILY, First d ose on Fri08/20/13 at 2100, Start with 1 tablet PO BID, If no bowel movement in 24 hours, increase to 2 tablets po BID. Hold for loose stools. Preferred agent for constipation related to opioids., Post-procedure sodium chloride (PF) 0.9% PF flush 3 mL (CANCELED) 1311 (Not Given - Provider: Karime Quinn RN - Reason: IV Infusing)2010 (Not Given - Provider: Ollie Lopez RN - Reason: IV Infusing) 0420 (Given - Provider: Olivia Clemente RN)1216 (Not Given - Provider: Nolvia Garcia LPN - Reason: Loss of IV access) 3 mL, Intravenous, EVERY 8 HOURS, First dose on Fri08/20/13 at 1300, to lock peripheral IV dormant line. Also Ordered Q1H PRN, Post-procedure sodium chloride 0.9 % BOLUS 1,000 mL (COMPLETED) 1311 (New Bag - Provider: Karime Quinn RN) Intravenous, 1,000 mL, ONCE, at 500 mL/h r, for 2 Hours, Fri08/20/13 at 1300, For 1 dose, Give over 2 hours as soon as pt arrives on floor, Post-procedure testosterone (ANDROGEL 1.62% PUMP) GEL 40.5 mg (CANCELED) 1923 (Given - Provider: Ollie Lopez RN - Comment: pt used own supply and applied earlier already by self) 1006 (Given - Provider: Nolvia carreon, DYNAMO REPAIRER) 2 pump = 40.5 mg, Topical, DAILY, First dose on Fri08/20/13 at 1800, Patient will need to bring in own home med supply if wants to use in hospital, Post-procedure Continuous Medication Order 08/19/2013 08/20/2013 08/21/2013 0.9 % sodium chloride IV solution (CANCELED) 1311 (New Bag - Provider: Karime Quinn RN)1700 (Rate/Dose Verify - Provider: Ollie Lopez RN)2147 (Stopped - Provider: Ollie Lopez RN) at 125 mL/hr, Intravenous, CONTINUOUS, C hange to saline lock when PO well tolerated., Post-procedure, Starting Fri08/20/13 at 1300, Until 08/21/13 at 1628 PRN Medication Order 08/19/2013 08/20/2013 08/21/2013 acetaminophen (OFIRMEV) 10 mg/mL infusion 1,000 mg (COMPLETE D) 1021 (Given - Provider: Janet Serrano, CINDY) 1,000 mg, Intravenous, at 400 mL/hr, ONC E PRN, 1 dose, Starting Fri08/20/13 at 0948, Until Discontinued, other, if pain relief not effective after narcotic dose, PACU, Maximum dose of acetaminophen is 4000 mg from all sources. fentaNYL (SUBLIMAZE) injection 25-50 mcg (CANCELED) 1018 (Given - Provider: Janet Serrano RN)1034 (Given - Provider: Mell Alejandro) 25-50 mcg, Intravenous, EVERY 2 MIN PRN, Starting Fri08/20/13 at 0948, other, acute pain, MAX cumulative dose = 250 mcg. Use Fentanyl initially, as a short acting agent for acute pain control. If insuff icient, or a longer acting agent is need ed, begin Morphine or Hydromorphone if ordered., PACU HYDROmorphone (DILAUDID) injection 0.2 mg (CANCELED) 1646 (Given - Provider: Ollie Lopez RN) 0.2 mg, Intravenous, EVERY 30 MIN PRN, S tarting 08/20/13 at 1255, Until 08/21/13 at 1628, moderate to severe pain, Post-procedure HYDROmorphone (DILAUDID) injection 0.3-0.5 mg (CANCELED) 1024 (Given - Provider: Janet Serrano RN)1103 (Given - Provider: Janet Serrano RN) 0.3-0.5 mg, Intravenous, EVERY 5 MIN PRN , Starting Fri08/20/13 at 0948, Until Fri08/20/13 at 1229, moderate to severe pain, acute pain. May administer if RR is > 10 , PACU, If fentanyl is also ordere d, use HYDROmorphone if pain control ins ufficient with fentanyl or a longer acting agent is needed. Max cumulative dose = 2 mg hydrOXYzine (ATARAX) tablet 25 mg (CANCELED) 1411 (Given - Provider: Karime Quinn RN)2209 (Given - Provider: Ollie Lopez RN) 0421 (Given - Provider: Olivia Clemente RN)1019 (Given - Provider: Nolvia Garcia LPN) 25 mg, Oral, 3 TIMES DAILY PRN, other, p ain, Starting Fri08/20/13 at 1255, Post-procedure oxyCODONE (ROXICODONE) immediate release tablet 5-10 mg (CAN CELED) 1411 (Given - Provider: Karime Quinn RN)1903 (Given - Provider: Ollie Lopez RN)2209 (Given - Provider: Ollie Lopez RN) 0045 (Given - Provider: Vicky Gore LPN)0421 (Given - Provider: Olivia Clemente RN)0707 (Given - Provider: Vicky Gore LPN)1004 (Given - Provider: Nolvia Garcia LPN)1243 (Given - Provider: Nolvia Garcia LPN) 5-10 mg, Oral, EVERY 3 HOURS PRN, modera te to severe pain, Starting Fri08/20/13 at 1255, Post-procedure sodium chloride 0.9% (bag) irrigation (CANCELED) 0827 (Given - Provider: Jose Fonseca MD) PRN, Starting Fri08/20/13 at 0827, Area to irrigate and instructions: ., Intra-procedure documented in this encounter Care Teams Phlebotomy Supervisor Relationship Specialty Start Date End Date Ian Kendrick MD PCP - General 11/19/07 02/21/14 [facility] [address] [place] [address] documented as of this encounter
--- OUTSIDE RECORDS SUMMARY | 2022-05-15 22:36 | XMS_ITS | Encounter Summary ---
:1955 Author Organization [facility] Address [address] [place] [address] Care Team Providers Name Role Phone Froylan Louise MD Primary Care Provider Unavailable Reason for Visit Reason Comments Recheck Medication Encounter Details Date Type Department Care Team Description 03/04/2014 Office Visit [facility] Froylan Louise Mild pers istent asthma (Primary Dx); Clinic Chhaya Dubose MD Hyperlipidemia LDL goal <160 ; [address] [facility] Lichen planus; [place], [place]; [address] H/O ulcerative colitis [phone] Social History Tobacco Use Types Packs/Day Years [...] you attend anabaptist or Patient refused 2020 quaker services? Do [...] Sign Reading Time Taken Comments Blood Pressure 132/80 03/04/2014 3:41 PM CDT Pulse 88 03/04/2014 3:41 PM CDT Temperature 36.9 ??C (98.5 ??F) 03/04/2014 3:41 PM CDT Respiratory Rate 16 03/04/2014 3:41 PM CDT Oxygen Saturation 97% 03/04/2014 3:41 PM CDT Inhaled Oxygen Concentration - - Weight 106.6 kg (235 lb) 03/04/2014 3:41 PM CDT Height - - Body Mass Index 32.78 08/20/2013 5:53 AM COPPER FLOTATION OPERATOR documented in this encounter Progress Notes Froylan Louise MD - 03/04/2014 3:40 PM CDT SUBJECTIVE: Virgil Christine is a 58 year old male who presents to clinic today for the following health issues: Medication Followup ?? Taking Medication as prescribed: yes ?? Side Effects: None ?? Medication Helping Symptoms: yes Problem list and histories reviewed & adjusted, as indicated. Additional history: History of UC with severe colitis in the past requiring total colectomy. Continue to have diarrhea that is controlled with loperamide. History of leg DVT after surgery. 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 Patient Active Problem List Diagnosis ??? ULCERATIVE COLITIS NOS ??? Edema Leg ??? Anticardiolipin Antibody Positive ??? Mild persistent asthma ??? Health Ch[facility] ? ? Hyperlipidemia LDL goal <160 ??? Personal history of DVT (deep vein thrombosis) ??? Status post unicompartmental knee replacement, right Past Surgical History Procedure Laterality Date ??? Colostomy ??? [place] filter ??? Resection abdominal perineal ??? Arthroplasty knee unicompartment 08/20/2013 Procedure: ARTHROPLASTY KNEE UNICOMPARTMENT; Right Knee Uni Arthroplasty ; Surgeon: Jose Fonseca MD; Location: [facility] OR History Substance Use Topics ??? Smoking status: Former Smoker -- 2.00 packs/day for 25 years Types: Cigarettes Quit date: 08/04/2006 ??? Smokeless tobacco: Never Used Comment: 2004 ??? Alcohol Use: Yes Comment: 4 BEERS A WEEK Family History Problem Relation Age of Onset ??? Diabetes Mother ROS: RESP:NEGATIVE for significant cough or SOB CV: NEGATIVE for chest pain, palpitations or peripheral edema GI: NEGATIVE for nausea, abdominal pain, heartburn, or change in bowel habits, has ongoing diarrhea OBJECTIVE: BP 132/80 Pulse 88 Temp(Src) 98.5 ??F (36.9 ??C) (Oral) Resp 16 Wt 235 lb (106.595 kg) BMI32.79 kg/m2 SpO2 97% Body mass index is 32.79 kg/(m^2). GENERAL APPEARANCE: alert and no distress RESP: lungs clear to auscultation - no rales, rhonchi or wheezes CV: regular rates and rhythm and no murmur, click or rub ABDOMEN: soft, nontender, without hepatosplenomegaly or masses ASSESSMENT/PLAN: (493.90) Mild persistent asthma (primary encounter diagnosis) Comment: Plan: ASTHMA CONTROL TEST, beclomethasone (QVAR) 80 MCG/ACT Inhaler, albuterol (ALBUTEROL) 108 (90 BASE) MCG/ACT inhaler, ipratropium (ATROVENT HFA) 17 MCG/ACT inhaler (556.9) ULCERATIVE COLITIS NOS Comment: Plan: loperamide (IMODIUM) 2 MG capsule, Comprehensive metabolic panel, CBC with platelets, Vitamin D Deficiency, TSH with free T4 reflex S/p colectomy has regular diarrhea that improves with imodium that he takes regularly. (272.4) Hyperlipidemia LDL goal <160 Comment: Plan: Lipid panel reflex to direct LDL, Comprehensive metabolic panel (697.0) Lichen planus Comment: Plan: triamcinolone (KENALOG) 0.1 % cream (257.2) Low testosterone Comment: Plan: Testosterone total Froylan Louise MD [facility] documented in this encounter Nursing Notes Nicolas Randhawa MA - 03/04/2014 3:41 PM CDT Chief Complaint Patient presents with ??? Recheck Medication Initial BP 132/80 Pulse 88 Temp(Src) 98.5 ??F (36.9 ??C) (Oral) Resp 16 Wt 235 lb (106.595 kg) BMI 32.79 kg/m2 SpO2 97% Estimated body mass index is 32.79 kg/(m^2) as calculated from the following: Height as of 08/20/13: 5' 11 (1.803 m). Weight as of this encounter: 235 lb (106.595 kg). BP completed using cuff size: large Nicolas Randhawa MA documented in this encounter Plan of Treatment Upcoming Encounters Date Type Specialty Care Team Description 05/20/2022 Lab Lab documented as of this encounter Visit Diagnoses Diagnosis Mild persistent asthma - Primary Unspecified asthma Hyperlipidemia LDL goal <160 Other and unspecified hyperlipidemia Lichen planus Low testosterone Other testicular hypofunction H/O ulcerative colitis Personal history of other diseases of di gestive system documented in this encounter Care Teams Woolen Tester Relationship Specialty Start Date End Date Froylan Louise MD PCP - General Family Practice 02/22/14 documented as of this encounter
--- OUTSIDE RECORDS SUMMARY | 2022-05-15 22:36 | XMS_ITS | Encounter Summary ---
:1955 Author Organization [facility] Address [facility] [place] [address] Care Team Providers Name Role Phone Froylan Louise MD Primary Care Provider Unavailable Froylan Louise MD Unavailable Unavailable Froylan Louise MD Unavailable Unavailable Reason for Referral - Closed Specialty Diagnoses / Procedures Referred By Contact Refer red To Contact Diagnoses Varicose veins of lower extremities with other complications Personal history of DVT (deep vein thrombosis) Postthrombotic syndrome [place] [address] [place] [address] Referral ID Status Reason Start Date Expiration Date Visits Requ ested Visits Authorized [id number] Closed 05/27/2014 11/23/2014 1 1 ROUTER Reason for Visit Reason Comments Wound Check Encounter Details Date Type Department Care Team Description 05/27/2014 Office Visit [facility] Froylan Louise Celluliti s of foot (Primary Dx); Clinic Chhaya Dubose MD Hyperlipidemia LDL goal <160 ; [address] [facility] Low testosterone; [place], [place] Varicose veins of lower extremities with other complications; [address] Personal history of DVT (gino p vein thrombosis); [phone] Postthrombotic syndrome; Insomnia; Cramp of limb Social History Tobacco Use Types Packs/Day Years Used Date Smoking Tobacco: Former Cigarettes 2 25 Quit : 08/04/2006 Smokeless Tobacco: Never Comments: 2004 Alcohol Use Standard Drinks/Week Comments Yes 0 (1 standard drink = 0.6 oz pure alcoho l) 4 BEERS A WEEK Alcohol Habits Answer Date Recorded How often do you have a drink containing 4 or more times a w [place] 05/25/2021 alcohol? How many drinks containing alcohol [...] you attend buddhism or Patient refused 2020 zoroastrian services? Do [...] Sign Reading Time Taken Comments Blood Pressure 130/90 05/27/2014 3:54 PM SHOP ROUTER Pulse 74 05/27/2014 3:54 PM SHOP ROUTER Temperature 36.8 ??C (98.2 ??F) 05/27/2014 3:54 PM SHOP ROUTER Respiratory Rate 16 05/27/2014 3:54 PM SHOP ROUTER Oxygen Saturation 98% 05/27/2014 3:54 PM SHOP ROUTER Inhaled Oxygen Concentration - - Weight 105 kg (231 lb 6 oz) 05/27/2014 3:54 PM SHOP ROUTER Height - - Body Mass Index 32.27 08/20/2013 5:53 AM SHOP ROUTER documented in this encounter Progress Notes Froylan Louise MD - 05/27/2014 3:49 PM CST SUBJECTIVE: Virgil Christine is a 58 year old male who presents to clinic today for the following health issues: Wound on right foot wasn't healing but now he says there is a scab on it would like you to still look at it Would like Rx's on older medications that were previously prescribed Problem list and histories reviewed & adjusted, as indicated. Additional history: non-healing wound on right foot with surrounding erythema, no drainage. No injury. History of previous DVT with subsequent varicose veins on that leg. Ongoing intermittent insomnia - has used ambien in the past and not using regularly. Has ongoing calf cramp issues related to previous DVT and post-thrombotic syndrome - has relief withcyclobenzaprine. Concerns with low testosterone - would like to be tested again. Past Medical History Diagnosis Date ??? Unspecified hemorrhoids without mention of complication Hemorrhoids ??? Sleep apnea NOT BEING TREATED FOR THIS. ??? DVT (deep venous thrombosis) RIGHT LEG AFTER COLON SURGERY. ??? Ulcerative colitis Had Colectomy ??? Arthritis ??? Personal history of DVT (deep vein thrombosis) 08/17/2013 ROS: INTEGUMENTARY/SKIN: as above OBJECTIVE: BP 130/90 Pulse 74 Temp(Src) 98.2 ??F (36.8 ??C) (Oral) Resp 16 Wt 231 lb 6 oz (104.951 kg) SpO2 98% Body mass index is 32.28 kg/(m^2). GENERAL APPEARANCE: alert and no distress SKIN: right lower leg with varicose vein with overlying excoriation, surrounding erythema, mildly tender, no swelling of calf or calf erythema or tenderness ASSESSMENT/PLAN: 1. Cellulitis of foot Treat for early cellulitis. This is likely a complication of his varicose veins related to post-thrombotic syndrome. Consider treatment for varicose veins for medical indication. Follow-up if not improving. - sulfamethoxazole-trimethoprim (BACTRIM DS,SEPTRA DS) 800-160 MG per tablet; Take 1 tablet by mouth2 times daily Dispense: 20 tablet; Refill: 0 - CBC with platelets - Vitamin D Deficiency - TSH with free T4 reflex - VASCULAR REFERRAL 2. Hyperlipidemia LDL goal <160 - Comprehensive metabolic panel 3. Low testosterone - Testosterone total 4. Varicose veins of lower extremities with other complications - VASCULAR REFERRAL 5. Personal history of DVT (deep vein thrombosis) - VASCULAR REFERRAL 6. Postthrombotic syndrome - VASCULAR REFERRAL 7. Insomnia - zolpidem (AMBIEN CR) 12.5 MG CR tablet; Take 1 tablet (12.5 mg) by mouth nightly as needed for sleep Dispense: 30 tablet; Refill: 0 8. Cramp of limb - cyclobenzaprine (FLEXERIL) 10 MG tablet; Take 1 tablet (10 mg) by mouth 3 times daily as needed for muscle spasms Dispense: 30 tablet; Refill: 1 Froylan Louise MD [facility] ROUTER documented in this encounter Nursing Notes Nicolas Randhawa MA - 05/27/2014 3:54 PM CST Chief Complaint Patient presents with ??? Wound Check Initial BP 130/90 Pulse 74 Temp(Src) 98.2 ??F (36.8 ??C) (Oral) Resp 16 Wt 231 lb 6 oz (104.951 kg) SpO2 98% Estimated body mass index is 32.28 kg/(m^2) as calculated from the following: Height as of 14: 5' 11 (1.803 m). Weight as of this encounter: 231 lb 6 oz (104.951 kg). BP completed using cuff size: large Nicolas Randhawa MA ROUTER documented in this encounter Plan of Treatment Upcoming Encounters Date Type Specialty Care Team Description 05/20/2022 Lab Lab Pending Results Name Type Priority Associated Diagnoses Date/Ti me VASCULAR REFERRAL Referral Routine Varicose Veins Of Lower Extremities 06/14/2014 With Other Compl ications Personal history of DVT (gino p vein thrombosis) Postthrombotic s yndrome Cellulitis of foot documented as of this encounter Procedures Procedure Name Priority Date/Time Associated Diagnosis Comme nts VITAMIN D DEFICIENCY Routine 05/27/2014 4:33 Cellulitis of jeb t Results for this SCREENING PM SHOP ROUTER procedure are i n the results section. TSH WITH FREE T4 Routine 05/27/2014 4:33 Cellulitis of foot Re sults for this REFLEX PM SHOP ROUTER procedure are i n the results section. TESTOSTERONE TOTAL Routine 05/27/2014 4:33 Low testosterone Re sults for this PM SHOP ROUTER procedure are i n the results section. COMPREHENSIVE Routine 05/27/2014 4:33 Hyperlipidemia LDL Resul ts for this METABOLIC PANEL PM SHOP ROUTER goal <160 procedure ar e in the results section. CBC WITH PLATELETS Routine 05/27/2014 4:33 Cellulitis of foot Results for this PM SHOP ROUTER procedure are i n the results section. documented in this encounter Results (ABNORMAL) Testosterone total (05/27/2014 4:33 PM SHOP ROUTER) [facility] Method Time Signature Testosterone 195 (L) 240 - 950 [facility] Total ng/dL [facility] Specimen Anatomical Collection Method Collection Time Receive d Time (Source) Location / / Volume Laterality Blood specimen 05/27/2014 4:33 PM 014 4:35 (specimen) SHOP ROUTER PM SHOP ROUTER Froylan Louise MD LAB - BLOOD ORDERABLES Performing Organization Address City/State/ZIP Code Phon e Number [facility] [address] [place] [address] [facility] TSH with free T4 reflex (05/27/2014 4:33 PM SHOP ROUTER) athologist Signature TSH 1.92 0.40 - 4.00 [facility] mU/L [place] Comment: Effective 01/19/2014, the reference range for this assay has changed to reflect new instrumentation/methodology. Specimen Anatomical Collection Method Collection Time Receive d Time (Source) Location / / Volume Laterality Blood specimen 05/27/2014 4:33 PM 014 4:35 (specimen) SHOP ROUTER PM SHOP ROUTER Froylan Louise MD LAB - BLOOD ORDERABLES Performing Organization Address City/[facility]/ZIP Code Phon e Number [facility] [address] [place] [address] [facility] [address], [place] [address] (ABNORMAL) Vitamin D Deficiency (05/27/2014 4:33 PM SHOP ROUTER) athologist [facility] Vitamin D 29 (L) 30 - 75 [facility] Deficiency ug/L [facility] Comment: Season, race, dietary intake, and treatm ent affect the concentration of 40-yedihca-Rbkkznf D. Values may decrea se during winter months and increase during summer months. Values less than 30 ug/L may indicate Vitamin D deficiency. Vitamin D determiniation is routinely p erformed by an immunoassay specific for 25 hydroxyvitamin D3. ??If an individua l is on vitamin D2 (ergocalciferol) supplementation, please specify 25 [place] v itamin D2 and D3 level determination by LCMSMS test VITD23. Specimen Anatomical Collection Method Collection Time Receive d Time (Source) Location / / Volume Laterality Blood specimen 05/27/2014 4:33 PM 014 4:35 (specimen) SHOP ROUTER PM SHOP ROUTER Froylan Louise MD LAB - BLOOD ORDERABLES Performing Organization Address City/State/ZIP Code Phon e Number [facility] [address] [place] [address] [facility] CBC with platelets (05/27/2014 4:33 PM SHOP ROUTER) P athologist Signature WBC 7.9 4.0 - 11.0 [place] 10e9/L [facility] RBC Count 4.67 4.4 - 5.9 [place] 10e12/L [facility] Hemoglobin 14.4 13.3 - [place] 17.7 g/dL [facility] Hematocrit 43.7 40.0 - [place] 53.0 % [facility] MCV 94 78 - 100 [place] fl [facility] MCH 30.8 26.5 - [place] 33.0 pg [facility] MCHC 33.0 31.5 - [place] 36.5 g/dL [facility] RDW 12.7 10.0 - [place] 15.0 % [facility] Platelet Count 175 150 - 450 [place] 10e9/L [facility] Specimen Anatomical Collection Method Collection Time Receive d Time (Source) Location / / Volume Laterality Blood specimen 05/27/2014 4:33 PM 014 4:35 (specimen) SHOP ROUTER PM SHOP ROUTER Froylan Louise MD LAB - BLOOD ORDERABLES Performing Organization Address City/State/ZIP Code Phon e Number [facility] [address] [place] [address] (ABNORMAL) Comprehensive metabolic panel (05/27/2014 4:33 PM SHOP ROUTER) Analysis Performed At Patho logist Time Signature Sodium 141 133 - 144 [place] mmol/L [facility] Potassium 3.8 3.4 - 5.3 [place] mmol/L [facility] Chloride 110 (H) 94 - 109 [place] mmol/L [facility] Carbon Dioxide 26 20 - 32 [place] mmol/L [facility] Anion Gap 5 3 - 14 [place] mmol/L [facility] Glucose 100 (H) 70 - 99 [place] mg/dL [facility] Comment: Effective 01/19/2014, the reference range for this assay has changed to reflect new instrumentation/methodology. Urea Nitrogen 18 7 - 30 mg/dL [place] [facility] [place] Comment: Effective 01/19/2014, the reference range for this assay has changed to reflect new instrumentation/methodology. Creatinine 0.85 0.66 - 1.25 [facility] mg/dL [place] GFR Estimate >90 >60 mL/min/1.7m2 [facility] Chastity LINICS Non GFR Calc [place] GFR Estimate If Black >90 >60 mL/min/1.7m2 [facility] GFR Calc [place] Calcium 8.9 8.5 - 10.1 mg/dL [place] [facility] [place] Comment: Effective 01/19/2014, the reference range for this assay has changed to reflect new instrumentation/methodology. Bilirubin Total 1.0 0.2 - 1.3 mg/dL [facility] Albumin 3.9 3.4 - 5.0 g/dL [facility] [place] Protein Total 7.6 6.8 - 8.8 g/dL [place] [facility] [place] Alkaline Phosphatase 85 40 - 150 U/L [facility] ALT 31 0 - 70 U/L [facility] AST 24 0 - 45 U/L [facility] Specimen Anatomical Collection Method Collection Time Receive d Time (Source) Location / / Volume Laterality Blood specimen 05/27/2014 4:33 PM 014 4:35 (specimen) SHOP ROUTER PM SHOP ROUTER Froylan Louise MD LAB - BLOOD ORDERABLES Performing Organization Address City/State/ZIP Code Phon e Number [facility] [address] [place] [address] [facility] [address] [place], [place] [address] documented in this encounter Visit Diagnoses Diagnosis Cellulitis of foot - Primary Cellulitis and abscess of foot, except t oes Hyperlipidemia LDL goal <160 Other and unspecified hyperlipidemia Low testosterone 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
--- OUTSIDE RECORDS SUMMARY | 2022-05-15 22:36 | XMS_ITS | Encounter Summary ---
:1955 Author Organization [facility] Address [address] [place] [address] Care Team Providers Name Role Phone Rad Carolina MD Primary Care Provider [phone] Reason for Visit Reason Onset Date Comments Orders 09/15/2013 Encounter Details Date Type Department Care Team Description 09/15/2013 Telephone [facility] [place] [address] [place] [address] [facility] [phone] [facility] [address] (Wo rk) Social History Tobacco Use [...] attend latter day or Patient refused 2020 scientology services? Do [...] encounter Miscellaneous Notes Telephone Encounter - Esthela Merritt RN - 09/23/2013 4:16 PM CDT [facility] sent RX back requesting RX and mmHg of stockings RX return with DX 453.9 venous thrombosis 30-40 mmHg per last RX Esthela Merritt RN Telephone Encounter - Marco Pak CMA - 09/16/2013 9:16 AM CDT lmom for pt that rx request sent in. Marco Pak CMA Addendum Note - Rad Carolina MD - 09/16/2013 8:07 AM CDT Addended by: RAD CAROLINA on: 09/16/2013 08:07 AM Modules accepted: Orders Telephone Encounter - Rad Carolina MD - 09/16/2013 8:06 AM CDT I sent the prescription to the pharmacy. ( [id number] [address] [facility] ) Please inform patient. Telephone Encounter - Prabha Salter - 09/15/2013 6:23 PM CDT Pt just had surgery and would like to get a rx for new RINA socks 3/ length. Please call pt when rx is faxed to [facility] if possible, and let pt know if he needs to pickthem up elsewhere. [phone] Thank you! sgr Central Scheduling documented in this encounter Plan of Treatment Upcoming Encounters Date Type Specialty Care Team Description 05/20/2022 Lab Lab documented as of this encounter Visit Diagnoses Diagnosis Personal history of DVT (deep vein throm bosis) - Primary Personal history of venous thrombosis an d embolism Edema leg Edema documented in this encounter Care Teams Conveyor Technician Relationship Specialty Start Date End Date Rad Carolina MD PCP - General 11/19/07 02/21/14 [facility] [address] [place] [address] documented as of this encounter
--- OUTSIDE RECORDS SUMMARY | 2022-05-15 22:36 | XMS_ITS | Encounter Summary ---
:1955 Author Organization [facility] Address [address] [place] [address] Care Team Providers Name Role Phone Froylan Louise MD Primary Care Provider Unavailable Froylan Louise MD Unavailable Unavailable Froylan Louise MD Unavailable Unavailable Reason for Visit Reason Onset Date Comments Refill Request 12/22/2014 Lasix Encounter Details Date Type Department Care Team Description 12/22/2014 Refill [facility] Froylan Louise Ra, Refill Request (Lasix) Chhaya [place]ILL[place] [address] [place] [address] Social History Tobacco Use [...] attend latter day or Patient refused 2020 mormonism services? Do [...] Notes Telephone Encounter - Carolin Dawson - 12/22/2014 1:37 PM CDT Rx approved, Pharmacy will notified patient when prescription is ready to be picked up. Carolin Dawson Lvn Telephone Encounter - Froylan Louise MD - 12/22/2014 12:16 PM CDT Refilled. Telephone Encounter - Wendi Lindsay RN - 12/22/2014 9:16 AM CDT This was prescribed over a year ago by Dr Kendrick. Please advise on refill as this is new for you to prescribe Wendi Lindsay RN, BSN Telephone Encounter - Carlos Alberto Black - 12/22/2014 7:40 AM CDT Lasix 20MG Last Written Prescription Date: 07/07/2013 Last Fill Quantity: 90, # refills: 0 Last Office Visit with [facility] primary care provider: 05/27/2014 Last refill: 07/07/2013 POTASSIUM Date Value Ref Range Status 05/27/2014 3.8 3.4 - 5.3 mmol/L Final CREATININE Date Value Ref Range Status 05/27/2014 0.85 0.66 - 1.25 mg/dL Final BP Readings from Last 3 Encounters: 05/27/14 130/90 06/22/14 131/92 03/04/14 132/80 Carlos Alberto Black XRT documented in this encounter Plan of Treatment Upcoming Encounters Date Type Specialty Care Team Description 05/20/2022 Lab Lab documented as of this encounter Visit Diagnoses Diagnosis Postthrombotic syndrome - Primary Postphlebetic syndrome without complicat ions Peripheral edema Edema documented in this encounter Care Teams Adaptive Physical Education Specialist Relationship Specialty Start Date End Date Froylan Louise MD PCP - General Family Practice 02/22/14 Froylan Louise MD PCP - Assigned PCP 03/13/14 08/25/18 Froylan Louise MD Assigned PCP 03/13/14 2 documented as of this encounter
--- OUTSIDE RECORDS SUMMARY | 2022-05-15 22:36 | XMS_ITS | Encounter Summary ---
:1955 Author Organization [facility] Address [address] [place] [address] Care Team Providers Name Role Phone Froylan Louise MD Primary Care Provider Unavailable Froylan Louise MD Unavailable Unavailable Froylan Louise MD Unavailable Unavailable Reason for Visit Reason Comments Shoulder left Encounter Details Date Type Department Care Team Description 07/19/2014 Office Visit [facility] Dileep Kendrick [facility] [place] cuff, unspecified [place] [address] laterality (Primary Dx) [address] [place], [place] [address] [address] [place] [address] [phone] Social History Tobacco Use Types Packs/Day Years Used Date Smoking Tobacco: Former Cigarettes 2 25 Quit : 08/04/2006 Smokeless Tobacco: Never Comments: 2004 Alcohol Use Standard Drinks/Week Comments Yes 0 (1 standard drink = 0.6 oz pure alcoho l) 4 BEERS A WEEK Alcohol Habits Answer Date Recorded How often do you have a drink containing 4 or more times a w the [place] 05/25/2021 alcohol? How many drinks [...] you attend adventism or Patient refused 2020 [employer] services? Do [...] as of this encounter Patient Instructions Patient InstructionsCindy Barriga - 07/19/2014 4:51 PM CST We addressed the following today: Steroid injection of the bilateral shoulder: subacromial space was performed today in clinic Icing for the next 1-2 days may be helpful for pain. Injection may take 10-14 days to see the full effect. Follow up as directed (sooner if needed; call direct clinic number [[phone]] at any time with questions or concerns) LY WORKER documented in this encounter Progress Notes Dileep Kendrick MD - 07/19/2014 4:06 PM CST [facility] Follow-up Visit s Jul 19, 2014 Subjective: Virgil Christine is a 58 year old male who is seen in follow up for evaluation of bilateral shoulder pain. His last visit for the left shoulder was on 09/13/[address] Brandon Santoro. Since that time, symptoms have been gradually returning, especially over the past few months. He notes both shoulders are painful at this time, left greater than the right, especially with overhead reaching. No recent injury. 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 Patient's past medical, surgical, social and family histories are reviewed today. Objective: General: healthy, alert and no distress Skin: no suspicious lesions or rashes Neuro: Sensory and motor exam grossly normal; no focal neurologic deficits appreciated. MSK: Left shoulder - no swelling or deformity. Mild tenderness anterior capsule, AC joint, lateral cuff insertions. ROM restricted slightly end range due to pain (active), limited passively by pain. Strength is well preserved. + Neer's, + Zee. Right shoulder - no swelling or deformity. Mild tenderness anterior capsule, AC joint, lateral cuff insertions. ROM restricted slightly end range due to pain (active), limited passively by pain. Strength is well preserved. + Neer's, + Zee. ASSESSMENT: 1. 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 Presentation today consistent with flare of chronic degenerative tendinopathy; strength is well-maintained and there is not concern for full thickness tear presently. Bilateral subacromial space injections were performed in the clinic today after review of the risks and benefits of the procedure. Cautioned on protecting the shoulders for the next 3-7 days. Follow up as needed for recurrent pain. Procedure: Bilateral Subacromial Space Injection The benefits, risks and alternatives of the procedure were discussed with the patient, including bleeding, infection, hyperglycemia, localized lipodystrophy and hypopigmentation. He elected to proceed,and informed consent was signed. Area was prepped with alcohol, and using standard precautions a 1.5 22g needle was used to inject 9ml of 1% lidocaine without epinephrine and 1 ml of kenalog (40mg/ml) into the right and then left subacromial space via a posterolateral approach. The patient tolerated the procedure well, and there were no complications. Following the procedure, he had good improvement in symptoms and range of motion. Dileep Kendrick MD, [facility] LY WORKER documented in this encounter Plan of Treatment Upcoming Encounters Date Type Specialty Care Team Description 05/20/2022 Lab Lab documented as of this encounter Procedures Procedure Name Priority Date/Time Associated Diagnosis Comme nts HC DRAIN/INJ MAJOR Routine 07/19/2014 10:19 PM Tendinopathy of rotator JOINT/BURSA W/O US FAMILY WORKER cuff, unspecified laterality documented in this encounter Visit Diagnoses Diagnosis Tendinopathy of rotator cuff, unspecifie d laterality - Primary documented in this encounter Care Teams Loom Fixer Supervisor Relationship Specialty Start Date End Date Froylan Louise MD PCP - General Family Practice 02/22/14 Froylan Louise MD PCP - Assigned PCP 03/13/14 08/25/18 Froylan Louise MD Assigned PCP 03/13/14 2 documented as of this encounter
--- OUTSIDE RECORDS SUMMARY | 2022-05-15 22:37 | XMS_ITS | Encounter Summary ---
:1955 Author Organization [facility] Address [address] [place] [address] Care Team Providers Name Role Phone Ian Kendrick MD Primary Care Provider [phone] Froylan Louise MD Primary Care Provider Unavailable Froylan Louise MD Unavailable Unavailable Froylan Louise MD Unavailable Unavailable Esthela Corea RN Unavailable Unavailable So Dodd MD Primary Care Provider Froylan Louise MD Primary Care Provider Unavailable So Dodd MD Unavailable So Dodd MD Primary Care Provider Reason for Visit Reason Onset Date Comments Refill Request 01/29/2013 loperamide Encounter Details Date Type Department Care Team Description 01/29/2013 Refill [facility] Ian Kendrick Refill Request [facility] Jeremiah (loperamide ) [address] [place], [place] [address] [facility] [id number] [facility] [phone] [place] [address] (Wo rk) Social History Tobacco Use Types Packs/Day Years Used Date Smoking Tobacco: Former Cigarettes Smokeless Tobacco: Never Comments: 2004 Alcohol Use [...] you attend yazidism or Patient refused 2020 druze services? Do [...] this encounter Miscellaneous Notes Telephone Encounter - Chacha Laboy - 01/30/2013 9:12 AM CDT Rn unable to fill JENNIFER: 10/08/2012 Refill:loperamide (IMODIUM) 2 MG capsule 480 capsule 3 04/16/2012 Sig: Take 3-4 capsules by mouth 3 times daily. Class: E-Prescribe Comment: Pt due for follow up Pt over due for appt Knows he needs and appt but no insurance and needs will refer to Dr. Kendrick to approve if appropriate. Pt said as soon as he gets his insurance he will be in. Chacha Laboy RN. Telephone Encounter - Raisa López - 01/29/2013 4:31 PM CDT Refill request for loperamide (IMODIUM) 2 MG capsule 480 capsule 3 04/16/2012 Sig: Take 3-4 capsulesby mouth 3 times daily. Class: E-Prescribe Comment: Pt due for follow up PT AWARE OF THIS BUT HE hasno insurance at this time. When he gets his insurance, which should be soon, he will make an apt. Route: Oral . Can you refill? Last Refill:04/16/12 Last OV:09/28/12 Pt's States he is out of his meds and needs monique..... Thanks! Raisa López Surgical Oncologist documented in this encounter Plan of Treatment Upcoming Encounters Date Type Specialty Care Team Description 05/20/2022 Lab Lab documented as of this encounter Visit Diagnoses Diagnosis ULCERATIVE COLITIS NOS - Primary Ulcerative colitis, unspecified documented in this encounter Additional Health Concerns Infection Onset Date Last Indicated Resolved Time Rule Out COVID-19 10/31/2019 10/31/2019 11/01/2019 1:0 8 PM CDT documented as of this encounter Care Teams Water Main Installer Helper Relationship Specialty Start Date End Date Ian Kendrick PCP - General 11/19/07 02/21/14 MD Jeremiah [facility] [address] [place] [address] Froylan Louise MD PCP - General Family Practice 02/22/14 Froylan Louise MD PCP - Assigned PCP 03/13/14 08/25/18 So Dodd MD PCP - General Family Medicine 01/10/22 01/17/22 [address] [place] [address] Froylan Louise MD PCP - General Family Medicine 01/18/22 So Dodd MD PCP - General Family Medicine 02/21/22 [address] [place] [address] Froylan Louise MD Assigned PCP 03/13/14 2 Esthela Corea, RN Personal Advocate & Family Medicine 10/16/20 Liaison (PAL) So Dodd MD Assigned PCP 01/05/22 [address] [place] [address] documented as of this encounter
--- OUTSIDE RECORDS SUMMARY | 2022-05-15 22:37 | XMS_ITS | Encounter Summary ---
:1955 Author Organization [facility] Address [address] [place] [address] Care Team Providers Name Role Phone Ian Kendrick MD Primary Care Provider Reason for Visit Reason Comments Back Pain R SI joint pain, 4 days, has tried chiropractic, no radicular, bilateral leg swelling since last nigh t Encounter Details Date Type Department Care Team Description 01/07/2013 Office Visit [facility] & Dileep Kendrick Acute ri ght hip pain Orthopedic MD Jose (Primary Dx) [facility] [address] [place], [place] [address] [facility] [address] [address] [place], [place] (Work) [address] Social History Tobacco Use Types Packs/Day Years Used Date Smoking Tobacco: Former Cigarettes Smokeless Tobacco: Never Comments: 2005 Alcohol Use Standard Drinks/Week Comments Yes 0 (1 standard drink = 0.6 oz pure alcoho l) 4 BEERS A WEEK Alcohol Habits Answer Date Recorded How often do you have a drink containing 4 or more times a w [place] mart[place] 05/25/2021 alcohol? How many drinks containing alcohol [...] you attend druze or Patient refused 2020 bahai services? Do [...] Sign Reading Time Taken Comments Blood Pressure 147/99 01/07/2013 11:23 AM CDT Pulse - - Temperature - - Respiratory Rate - - Oxygen Saturation - - Inhaled Oxygen Concentration - - Weight - - Height - - Body Mass Index - - documented in this encounter Patient Instructions Patient InstructionsJasmine Das - 01/07/2013 12:20 PM CDT Assessment: 1. Acute right hip pain Plan: Discussed the assessment with the patient. Steroid injecton of the right hip: was performed today in clinic Icing for the next 1-2 days may be helpful for pain. Injection may take 10-14 days to see the full effect. Follow up: 3-6 weeks if not improving or sooner if needed. documented in this encounter Progress Notes Dileep Kendrick MD - 01/07/2013 11:23 AM CDT [facility] Clinic Visit s Jan 07, 2013 Subjective: Virgil Christine is a 57 year old male who is seen as ER referral for evaluation of low back pain, SI joint region, right side Symptoms began 4 day(s) ago, and have been unchanged since that time. Patient reports insidious onset without acute precipitating event. He reports stabbing and sharp back pain that is located right lower lumbar region, iliac crest, SI joint without radiation. Pain is 10/10 in maximal severity, and 7/10 currently. Pain was severe enough that he was seen in the ED and almost admitted for pain control.Symptoms are worse with bending forward - once is he upright, he can move fairly easily. He started prednisone which he feels helps, but he is concerned about leg swelling that may be worse since starting the medication. Also taking Percocet. Chiro has not been helpful. Associated symptoms: denies anybowel/bladder dysfunction or saddle anesthesia; no distal numbness or tingling, no lower extremity muscle weakness. He denies history of related problems. Patient's past medical, surgical, social and family histories are reviewed today. 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 Past Medical History Diagnosis Date ??? Unspecified hemorrhoids without mention of complication Hemorrhoids Patient Active Problem List Diagnosis ??? ULCERATIVE COLITIS NOS ??? VENOUS THROMBOSIS NOS ??? Edema Leg ??? Anticardiolipin Antibody Positive ??? Mild persistent asthma ??? Health Jail ? ? Hyperlipidemia LDL goal <160 Review of Systems: Constitutional:NEGATIVE for fever, chills, change in weight Skin: NEGATIVE for worrisome rashes, moles or lesions Neuro: see HPI MSK: see HPI Objective: BP 147/99 General: healthy, alert and severe distress when moving Skin: no suspicious lesions or rashes Psych: mentation appears normal and affect normal/bright Gait: antalgic Neuro: DTRs 2+/symmetric patella/achilles. Sensory examination of the lower extremities is within normal limits. Motor strength as noted below. MSK: THORACIC/LUMBAR SPINE Inspection: No redness, swelling, overlying skin change, or gross deformity/asymmetry. Palpation: Tender about the right SI joint and gluteal muscles just inferior tot he posterior iliac crest No tenderness over the thoracic spinous processes, left parathoracic muscles, right parathoracic muscles, lumbar spinous processes, lumbar facet joints, left para lumbar muscles or right para lumbar muscles. Range of Motion: Lumbar flexion limited substantially by pain Lumbar extension full Right side bend full Left side bend full Right rotation full Left rotation full Strength: Full strength throughout hips/quads/hamstrings, no foot drop present Special Tests: Positive: straight leg raise (right), slump test (right), unable to get into DURAN position, + SI joint compression. Imaging: Lumbar spine x-rays (2 views, AP/lateral) were ordered and interpreted in the office today. Impression: Lower spine degenerative changes noted, without acute osseous abnormality. Right hip x-rays (2 views, AP/lateral) were ordered and interpreted in the office today. Impression: negative for fracture, subluxation, joint space narrowing, or other acute osseous abnormality. ASSESSMENT: 1. Acute right hip pain PLAN: 1) 4 days of severe low back and right gluteal/SI joint pain with injury. Pain is extreme and unusual for patient, who describes several other seemingly worse injuries that he did not have any trouble managing from an analgesia standpoint. Most likely etiology is acute disc herniation, though acute SIjoint and gluteal irritation cannot be excluded. He also has bilateral leg swelling which seems to be worse since starting the prednisone - no warmth or redness associated with this, no recent prolonged immobilization. No red flag lumbar/cauda equina findings. 2) Will attempt to continue with prednisone - if swelling continues to increase, may need to discontinue that medication. Leg compression stockings, elevation when resting. No evidence of recurrent DVTcurrently. 3) Percocet refilled for pain control. 4) Trigger corticosteroid injection performed today at gluteal region and musculature surrounding SIjoint. 5) Call with update on Friday - if symptoms not resolving or worsening, may need to proceed with MRIof lumbar spine. If leg symptoms worsen, may require repeat US to rule out DVT. He was instructed tocontact our office sooner should the condition evolve or worsen, or should any new/progressive neurologic symptoms develop. Procedure: Right Hip Injection The benefits, risks and alternatives of the procedure were discussed with the patient, including bleeding, infection, hyperglycemia, localized lipodystrophy and hypopigmentation. He elected to proceed,and informed consent was signed. Area was prepped with ChloraPrep, and using sterile technique a 1.5 22g needle was used to inject 9cc of 1% lidocaine without epinephrine and 1 cc of kenalog (40mg/ml) into the point of maximal tenderness (trigger) at the right gluteal region inferior to the posterior iliac crest and into the musculature surrounding the SI joint. The patient tolerated the procedure well, and there were no complications. Following the procedure, he had no improvement in symptoms. Dileep Kendrick MD, [facility] documented in this encounter Nursing Notes 01/07/2013 11:15 AM CDT >> Jasmine Das [facility] Jan 07, 2013 11:26 AM Patient presents with: Back Pain - R SI joint pain, 4 days, has tried chiropractic, no radicular, bilateral leg swelling since last night Initial BP 147/99 Estimated Body mass index is 32.55 kg/(m^2) as calculated from the following: Height as of 01/06/13: 6' 0(1.829 m). Weight as of 01/06/13: 240 lb(108.863 kg). BP completed using cuff size: NA (Not Taken) Jasmine Das ATC documented in this encounter Plan of Treatment Upcoming Encounters Date Type Specialty Care Team Description 05/20/2022 Lab Lab Pending Results Name Type Priority Associated Diagnoses Date/Ti me XR Lumbar Spine /3 Imaging Routine Acute right hip pain 01/07/2013 11:34 AM CDT Views XR Pelvis 1/2 Views Imaging Routine Acute right hip pain 01/07/2013 11:50 AM CDT documented as of this encounter Visit Diagnoses Diagnosis Acute right hip pain - Primary Pain in joint, pelvic region and thigh documented in this encounter Care Teams Drywall Hanger Relationship Specialty Start Date End Date Ian Kendrick MD PCP - General 11/19/07 02/21/14 [place] [address] [place] [address] documented as of this encounter
--- OUTSIDE RECORDS SUMMARY | 2022-05-15 22:37 | XMS_ITS | Encounter Summary ---
:1955 Author Organization [facility] Address [address] [place] [address] Care Team Providers Name Role Phone Ian Kendrick MD Primary Care Provider [phone] Reason for Visit Reason Comments RECHECK testosterone therapy Encounter Details Date Type Department Care Team Description 07/29/2013 Office Visit [facility] Ian Kendrick Testos terone Clinic [place] MD Jeremiah deficiency (Primary [id number] [place] [address] Dx) [place], [place] CLINIC [address] [address] [facility] [phone] [place] [address] Social History Tobacco Use Types Packs/Day Years Used Date Smoking Tobacco: Former Cigarettes Smokeless Tobacco: Never Comments: 2005 Alcohol Use Standard Drinks/Week Comments Yes 0 (1 standard drink = 0.6 oz pure alcoho l) 4 BEERS A WEEK Alcohol Habits Answer Date Recorded How often do you have a drink containing 4 or more times a w [place] 05/25/2021 alcohol? How many drinks containing alcohol [...] you attend amish or Patient refused 2020 adventism services? Do [...] Sign Reading Time Taken Comments Blood Pressure 130/85 07/29/2013 11:27 AM CUSTOMER ADVISOR Pulse 67 07/29/2013 11:27 AM CUSTOMER ADVISOR Temperature 36.7 ??C (98.1 ??F) 07/29/2013 11:27 AM CUSTOMER ADVISOR Respiratory Rate - - Oxygen Saturation 98% 07/29/2013 11:27 AM CUSTOMER ADVISOR Inhaled Oxygen Concentration - - Weight 108.9 kg (240 lb) 07/29/2013 11:27 AM CUSTOMER ADVISOR Height 180.3 cm (5' 11) 07/29/2013 11:27 AM CUSTOMER ADVISOR Body Mass Index 33.47 07/29/2013 11:27 AM CUSTOMER ADVISOR documented in this encounter Progress Notes Ian Kendrick MD - 07/29/2013 11:22 AM CST SUBJECTIVE: Virgil Christine is a 57 year old male who presents to clinic today for the following health issues: 1. testosterone deficiency - patient had a recent testosterone level of 181. He has symptoms relatedto testosterone deficiency including fatigue, erectile dysfunction, and lower than expected muscle tone and persistent abdominal fat despite significant improvement in diet and exercise. He is interested in testosterone replacement therapy. Problems list, allergies, social and family history, and past medical history, are all reviewed and updated in [facility]. Current Outpatient Prescriptions Medication Sig ??? testosterone (ANDROGEL 1.62% PUMP) 20.25 MG/ACT [...] mouth every 6 hours as needed ??? diazepam (VALIUM) 5 MG tablet Take 1 tablet by mouth every 6 hours as needed for anxiety. ??? albuterol (PROAIR HFA) 108 (90 BASE) MCG/ACT inhaler Inhale 1-2 puffs into the lungs every 4 hours as needed. ??? zolpidem (AMBIEN CR) 12.5 MG CR tablet Take 1 tablet by mouth nightly as needed for sleep. ??? ORDER FOR DME RINA hose or support stocking, knee high SZ M4 30-40 mmHg OBJECTIVE: BP 130/85 Pulse 67 Temp 98.1 ??F (36.7 ??C) (Oral) Ht 5' 11 (1.803 m) Wt 240 lb (108.863 kg) BMI 33.49 kg/m2 SpO2 98% Exam deferred Assessment/Plan: 257.2 Testosterone deficiency (primary encounter diagnosis) Comment: Plan: testosterone (ANDROGEL 1.62% PUMP) 20.25 MG/ACT gel, Testosterone total, Sex hormone binding globulin Discussed risks and benefits of testosterone replacement therapy, including risks of acne, increased aggression, gynecomastia, and possible effects on the liver and increased risk of prostate cancer. I also discussed several new studies which show potential for increased cardiovascular risk. I gave him a handout with an analysis of the new studies and implications for heart disease. After discussion of risks and benefits, he chooses to start with Androgel. He will follow up for repeat testosterone level in 4 weeks, then an office visit 1 week later, then in 3 months for an office visit and lab check of testosterone, Hgb, LFTs, and PSA. Spent greater than 50% of 25 minutes of delk-gb-ahzo time counseling patient and/or coordinating care regarding above issues. OMER ADVISOR documented in this encounter Nursing Notes 07/29/2013 11:15 AM CST >> MARCO PAK Thu Jul 29, 2013 11:29 AM Patient presents with: RECHECK - testosterone therapy Initial BP 130/85 Pulse 67 Temp 98.1 ??F (36.7 ??C) (Oral) Ht 5' 11 (1.803 m) Wt 240 lb (108.863 kg) BMI 33.49 kg/m2 SpO2 98% Estimated Body mass index is 33.49 kg/(m^2) as calculated fromthe following: Height as of this encounter: 5' 11(1.803 m). Weight as of this encounter: 240 lb(108.863 kg). BP completed using cuff size: large Marco Pak PROOF READER documented in this encounter Plan of Treatment Upcoming Encounters Date Type Specialty Care Team Description 05/20/2022 Lab Lab documented as of this encounter Visit Diagnoses Diagnosis Testosterone deficiency - Primary Other testicular hypofunction documented in this encounter Care Teams Heel Stiffener Relationship Specialty Start Date End Date Ian Kendrick MD PCP - General 11/19/07 02/21/14 [facility] [address] [place] [address] documented as of this encounter
--- OUTSIDE RECORDS SUMMARY | 2022-05-15 22:37 | XMS_ITS | Encounter Summary ---
:1955 Author Organization [facility] Address [address] [place] [id number] Care Team Providers Name Role Phone Ian Kendrick MD Primary Care Provider [phone] Reason for Visit Auth/Cert Specialty Diagnoses / Procedures Referred By Contact Refer red To Contact Surgery Diagnoses Cubital tunnel syndrom Rh Periop Services Procedures [facility] [address] [place], [place] [address] Phone: Fax: Referral ID Status Reason Start Date Expiration Date Visits Requ ested Visits Authorized [id number] 1 1 Encounter Details Date Type Department Care Team Description 08/20/2013 Surgery [facility] Jose Fonseca Right Knee Uni Ridges PeriOp Servic osbaldo Meyers MD Arthroplasty [address] [place], [place] ORTHOPEDICS [address] [facility] [phone] [address] [place] [address] (Wo rk) Surgery Details Date/Time Status Location OR Service Patient Case Class Case Tr auma Class Type Case? 08/20/13 7:30 Posted OR OR Orthopedics Surgery Outpatient in AM Admit Bed Panel 1 Procedure LRB Anes Op Region Wound Class Commen ts Right Knee Uni Right Combined General Knee I-Clean Righ t Knee Uni Arthroplasty with Femoral Nerve Arth roplasty Block Surgeon Surgeon Role Service Panel Jose Fonseca MD Primary Orthopedics 1 Adams Patel, PAJayC Machine Preservative Filler Authorization 1 Special Needs Joint class 08/12/13. KRISHNAMURTHY to swab 2/12/20 14 6'0, 238# stated documented in this encounter Social History Tobacco Use Types Packs/Day Years Used Date Smoking Tobacco: Former Cigarettes 2 Quit : 08/04/2006 Smokeless Tobacco: Never Comments: 2004 Alcohol Use Standard Drinks/Week Comments Yes 0 (1 standard drink = 0.6 oz pure alcoho l) 4 BEERS A WEEK Alcohol Habits Answer Date Recorded How often do you have a drink containing 4 or more times a w point hope ira 05/25/2021 alcohol? How many drinks containing [...] you attend alevism or Patient refused 2020 yarsanism services? Do [...] Sign Reading Time Taken Comments Blood Pressure 143/97 08/20/2013 7:25 AM PAINT CREW SUPERVISOR Pulse - - Temperature 37.1 ??C (98.8 ??F) 08/20/2013 5:53 AM PAINT CREW SUPERVISOR Respiratory Rate 16 08/20/2013 7:25 AM PAINT CREW SUPERVISOR Oxygen Saturation 97% 08/20/2013 7:25 AM PAINT CREW SUPERVISOR Inhaled Oxygen Concentration - - Weight 109.8 kg (242 lb) 08/20/2013 5:53 AM PAINT CREW SUPERVISOR Height 180.3 cm (5' 11) 08/20/2013 5:53 AM PAINT CREW SUPERVISOR Body Mass Index 33.75 08/20/2013 5:53 AM PAINT CREW SUPERVISOR documented in this encounter Medications at Time [...] therapeutic with mouth daily minerals (MULTI-VITAMIN) TABS [place]-3 Fatty Acids Take 1 g by mouth [...] Tricia Sood-Provider - 08/23/2013 3:43 PM CST Jose Lee MD - 08/21/2013 10:57 AM CST Orthopedic [...] Pain management Discharge planning Jose Fonseca MD [phone] T CREW SUPERVISOR Arminda Whitlock OT - 08/21/2013 8:51 AM CST 08/21/13 [...] Transfer Skill: Sit to Stand Level of Lassen: Sit/Stand stand-by assist Physical Assist/Nonphysical Assist: Sit/Stand supervision;verbal cues Transfer Skill: Toilet Transfer Level of Lassen: Toilet stand-by assist Physical Assist/Nonphysical Assist: Toilet supervision;verbal cues Balance Balance Comments decreased balance following R knee surgery Lower Body Dressing Level of Lassen: Dress Lower Body minimum assist (75% patients effort) Physical Assist/Nonphysical Assist: Dress Lower Body verbal cues Toileting Level of Lassen: Toilet stand-by assist Physical Assist/Nonphysical Assist: Toilet [...] Evaluation Time Total Evaluation Time (Minutes) 10 T CREW SUPERVISOR May Rojas, RT - 08/20/2013 9:06 PM CST Pt strongly refused MDI tx. At this time. Will continue to monitor this shift. May Rojas CAR WIPER,BITUMEN PLANT OPERATOR 08/20/2013 T CREW SUPERVISOR Miranda Marichuy Houston, PT - 08/20/2013 5:29 PM CST 08/20/13 [...] Evaluation Time Total Evaluation Time (Minutes) 15 T CREW SUPERVISOR Sofia Marshall, CINDY - 08/20/2013 4:12 PM CST Care Laundry Washer RN: Updating for Discharge planning, spoke with Keely at [facility]. Thispt. Is set up for Home Care with with the anticipated DC date of FridayAugust 22. Please get DC ORDERS for HOME PT from Dr. Fonseca on discharge. And Fax these orders to [phone] ([facility]. ) ALSO SEE NOTES from 08/19 from Kelly Marshall RN BSN CTS Care Transitions Team [phone] T CREW SUPERVISOR Kelly Randhawa LSW - 08/19/2013 5:03 PM CST LUIS MIGUEL D: Pre-admission contact from pt for post surgery care discharge planning. Call received from pt who informed Sw of his scheduled surgery and anticipated overnight stay at [facility]. He was inquiring about possibility of going [...] SW received information from Keely Sandhu from [facility] informing that she was contacted by surgeon's office with request for home PT services for pt on discharge. She has been in contact with pt, it is anticipated that start of care for pt's home PT will be on Friday. SW will follow-up with pt post-surgery to finalize home care services and assist with other discharge needs that may arise. T CREW SUPERVISOR documented in this encounter H&P Notes Smiley Pak - 08/18/2013 9:29 AM CST This note is for the purpose of making the H&P performed in clinic within the last 30 days available in the hospital surgical encounter. T CREW SUPERVISOR Source Note - Ian Kendrick MD - 08/16/2013 2:23 PM PAINT CREW SUPERVISOR [address] [address] Dept: [phone] PRE-OP EVALUATION: Today's date: 08/16/2013 Anita Christine [...] Time of Surgery/ Procedure: 6:00am Hospital/Surgical Facility: [facility] Primary Physician: Ian Kendrick Type of Anesthesia [...] Problem List Diagnosis Date Noted ??? [facility] 07/16/2011 Priority: High EMERGENCY CARE PLAN Presenting Problem Signs and Symptoms Treatment Plan Questions or conerns during clinic hours I will call the clinic directly Questions or conerns outside clinic hours I will call the 24 hour nurse line at [phone] Patient needs to schedule an appointment I will call the 24 hour scheduling team at [phone] orclinic directly Same day treatment I will call the clinic first, nurse line if after hours, urgent care and expresscare if needed DX V65.8 REPLACED WITH [phone] [facility] (09/28/2012) ??? Personal history of DVT [...] Surgical History Procedure Date ??? Colostomy ??? Hubbard filter ??? Resection abdominal perineal Current Outpatient Prescriptions Medication Sig ??? [START ON 08/20/2013] rivaroxaban ANTICOAGULANT (XARELTO) 10 MG TABS tablet Take 1 tablet (10 mg)by mouth daily (with dinner) ??? MELATONIN PO Take 5 mg by mouth nightly as needed ??? multivitamin, therapeutic with minerals (MULTI-VITAMIN) TABS Take 1 tablet by mouth daily ??? [place]-3 Fatty Acids (OMEGA-3 FISH OIL PO) Take [...] cardiovascular risks for perioperative complications such as (DC, PE, VFib and 3?? AV Block): No [...] evaluation report is provided to requesting physician. T CREW SUPERVISOR documented in this encounter Consult Notes Elle [...] & coumadin was d/c by hematology in 2008/2009. Patient is scheduled for US LE tomorrow, [...] Surgical History Procedure Date ??? Colostomy ??? Nicola filter ??? Resection abdominal perineal Social History: [...] Past Week at Unknown Yes Reported, Patient [place]-3 Fatty Acids (OMEGA-3 FISH OIL PO) Take [...] past 24 hour(s)) -XR KNEE PORT RT 06/24 VW Narrative: KNEE PORTABLE ONE TO TWO VIEWS August 20, 2013 10:55 AM HISTORY: Postoperative total knee. COMPARISON: 03/23/2012. FINDINGS: Postoperative changes right medial unicondylar arthroplasty, no apparent hardware complications. Chondrocalcinosis lateral meniscus. Soft tissue drain and skin elan noted. Impression: IMPRESSION: Right medial unicondylar arthroplasty. MD Lisa HARLEY PA-C T CREW SUPERVISOR documented in this encounter Nursing Notes Mell Alejandro - 08/20/2013 10:27 AM CST Assumed care of patient for 15 minute break of Janet Malik RN. T CREW SUPERVISOR Adolph Short RN - 08/20/2013 8:23 AM CST Irrisept solution with .05% chlorhexidine arlene. X 1000ml used to irrigate right knee prior to cementing implants. RAJEEV T CREW SUPERVISOR Mayra Weir RN - 08/20/2013 7:24 AM CST Pre op, pt questioning about previous DVT in surgical leg. Was cleared by both Dr. Haque and . Order for surgery clarified, pt only have a partial knee replacement. Ok to proceed with surgery. T CREW SUPERVISOR Nguyen Suarez RN - 08/04/2013 3:21 PM CST Nasal swab done and sent to lab for MRSA/MSSA culture. Patient would like to be contacted if positive or negative. Instructions provided if positive. Exidine give. Showering instructions given. T CREW SUPERVISOR documented in this encounter Miscellaneous Notes Plan of Care - Nuzhat Kirk RN - 08/21/2013 2:25 PM CST Problem: IP GENERAL POC-ADULT,OB,BEHAVIORAL FVCPM Goal: Individualization/Patient-Specific Goal (Adult,OB,Behavioral The patient and/or their inside sales account representative will achieve their patient-specific goals related to the plan of care. The patient-specific goals include: Outcome: Adequate for Discharge Date Met: 08/21/13 [facility] Orthopedic Nursing Progress Note Assessment Assessment: BP [...] under operative leg. Pt showered and new aquacell drsg applied. Pain: controlled with oral pain [...] included narcotic pain meds-- Oxycontin and Percocet T CREW SUPERVISOR Plan of Care - Yaritza Blue, PT - 08/21/2013 10:19 AM CST Problem: General Rehab Plan of Care Goal: Physical Therapy Goals The patient and/or their inside sales account representative will achieve their patient-specific goals related [...] strengthening and ROM to maximize independent function.. T CREW SUPERVISOR Plan of Care - Arminda Whitlock OT - 08/21/2013 9:05 AM CST Problem: General Rehab Plan of Care Goal: Occupational Therapy Goals The patient and/or their inside sales account representative will achieve their patient-specific goals related [...] Rationale/Recommendations: improved safety and independence with ADL/IADLs. T CREW SUPERVISOR Plan of Care - Olivia Clemente RN - 08/21/2013 6:06 AM CST Problem: IP GENERAL POC-ADULT,OB,BEHAVIORAL FVCPM Goal: Individualization/Patient-Specific Goal (Adult,OB,Behavioral The patient and/or their inside sales account representative will achieve their patient-specific goals related [...] DC home today. Will continue to monitor. T CREW SUPERVISOR Plan of Care - Ollie Lopez RN - 08/21/2013 12:10 AM CST Problem: IP GENERAL POC-ADULT,OB,BEHAVIORAL FVCPM Goal: Individualization/Patient-Specific Goal (Adult,OB,Behavioral The patient and/or their inside sales account representative will achieve their patient-specific goals related [...] up or out of bed without assistance. T CREW SUPERVISOR Plan of Care - Marichuy Jean, PT - 08/20/2013 5:31 PM CST Problem: General Rehab Plan of Care Goal: Physical Therapy Goals The patient and/or their inside sales account representative will achieve their patient-specific goals related [...] discharge tomorrow morning. Has crutches here, has [facility] home care set up for therapies already. T CREW SUPERVISOR Plan of Care - Karime Quinn RN - 08/20/2013 2:22 PM CST Problem: IP GENERAL POC-ADULT,OB,BEHAVIORAL FVCPM Goal: Individualization/Patient-Specific Goal (Adult,OB,Behavioral The patient and/or their inside sales account representative will achieve their patient-specific goals related to the plan of care. The patient-specific goals include: Outcome: Improving Arrived from PACU at 12:45. Awake and alert. Dressing to leg D&I, immobiilizer in place. Has hemovac. Lungs clear, instructed IS. Given Oxycodone and Vistaril for pain control at 14:10 Botello removed in PACU , due to void. CPM started. T CREW SUPERVISOR Brief Op Note - Jose Fonseca MD - 08/20/2013 9:52 AM CST [facility] Brief Operative Note Pre-operative diagnosis: degenerative joint disease Post-operative diagnosis same Procedure: Procedure(s) with comments: ARTHROPLASTY KNEE UNICOMPARTMENT - Right Knee Uni Arthroplasty Surgeon(s): Surgeon(s) and Role: * Joes Fonseca MD - Primary * Adams Patel PA-C Estimated blood loss: * No values recorded between 08/20/2013 8:00 AM and 08/20/2013 9:52 AM * Specimens: * No specimens in log * Findings: See dictation T CREW SUPERVISOR Op Note - Jose Fonseca MD - 08/20/2013 9:47 AM CST PREOPERATIVE DIAGNOSIS: Right knee medial compartment degenerative joint disease. POSTOPERATIVE DIAGNOSIS: Right knee medial compartment degenerative joint disease. PROCEDURE: Unicompartmental arthroplasty, right knee medial compartment, using the [place] UKA system. SURGEON: Jose Fonseca MD BUSINESS OFFICE COORDINATOR: Clarence Patel PA-C INDICATIONS: Mr. Anita Christine [...] his medial compartment. 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 Ihad a long discussion with him regarding [...] proceed with the unicompartmental kneearthroplasty with a [employer]oorva UKA system, and so we made our [...] It sized to fit a size 5 [place] Triathlon UKA component. We found that with [...] EM#[id number] Name: ANITA CHRISTINE MRN: [id number] Account: [id number] : 1955 Procedure Date: 08/20/2013 Document: [id number] T CREW SUPERVISOR Pharmacy-Admission Medication History - Audrey Joseph [facility] - 08/10/2013 6:41 PM CST Pharmacy reviewed prior to admission med list from pre-admitting rn. T CREW SUPERVISOR documented in this encounter Plan of Treatment Upcoming Encounters Date Type Specialty Care Team Description 05/20/2022 Lab Lab documented as of this encounter Procedures Procedure Name Priority Date/Time Associated Comments Diagnosis US LOWER EXTREMITY Routine 08/21/2013 9:53 Result s for this VENOUS DUPLEX RIGHT AM PAINT CREW SUPERVISOR procedur e are in the results section. HEMOGLOBIN Routine 08/21/2013 5:55 Results for this AM PAINT CREW SUPERVISOR procedure are i n the results section. GLUCOSE Routine 08/21/2013 5:55 Results for this AM PAINT CREW SUPERVISOR procedure are i n the results section. GLUCOSE BY METER Routine 08/20/2013 8:36 Results for this PM PAINT CREW SUPERVISOR procedure are i n the results section. GLUCOSE BY METER Routine 08/20/2013 4:42 Results for this PM PAINT CREW SUPERVISOR procedure are i n the results section. XR KNEE PORT RIGHT 06/24 STAT 08/20/2013 10:55 R esults for this VIEWS AM PAINT CREW SUPERVISOR procedure are i n the results section. ARTHROPLASTY, KNEE, 08/20/2013 7:30 Cubital tunnel UNICOMPARTMENTAL AM PAINT CREW SUPERVISOR syndrom, degenerative joint disease Special Needs Joint class 08/12/13. KRISHNAMURTHY to swab 08/04/2013 6'0, 238# stated POTASSIUM STAT 08/20/2013 6:20 AM PAINT CREW SUPERVISOR Resul ts for this procedure are in the results sec tion. PLATELET COUNT Routine 08/20/2013 6:20 AM PAINT CREW SUPERVISOR Res ults for this procedure are in the results sec tion. HEMOGLOBIN STAT 08/20/2013 6:20 AM PAINT CREW SUPERVISOR Resul ts for this procedure are in the results sec tion. CREATININE STAT 08/20/2013 6:20 AM PAINT CREW SUPERVISOR Resul ts for this procedure are in the results sec tion. GLUCOSE BY METER Routine 08/20/2013 6:03 AM PAINT CREW SUPERVISOR R esults for this procedure are in the results sec tion. documented in this encounter Results US Lower Extremity Venous Duplex Right (08/21/2013 9:53 AM PAINT CREW SUPERVISOR) Anatomical Region Laterality Modality Lower Extremity Ultrasound Specimen (Source) Anatomical Location Collection Method / Collectio n Time Received Time / Laterality Volume Impressions 08/21/2013 9:59 AM PAINT CREW SUPERVISOR IMPRESSION: 1. Stable nonocclusive thrombus in the s uperficial femoral and popliteal veins which is unchanged from 06/02/09. 2. No evidence for acute deep venous thr ombosis. 3. Fluid collection in the popliteal spa ce which may be postoperative fluid or popliteal cyst. LENARD MITCHELL MD Narrative 08/21/2013 9:59 AM PAINT CREW SUPERVISOR US LOWER EXTREMITY VENOUS DUPLEX RIGHT ??08/21/2013 [...] US ORDERABLES (ABNORMAL) Hemoglobin (08/21/2013 5:55 AM PAINT CREW SUPERVISOR) athologist Signature Hemoglobin 12.9 (L) 13.3 - 17.7 [place] g/[facility] LAB Specimen Anatomical Collection Method Collection Time Receive d Time (Source) Location / / Volume Laterality Blood specimen 08/21/2013 5:55 AM 014 6:45 (specimen) PAINT CREW SUPERVISOR AM PAINT CREW SUPERVISOR Jose Fonseca MD LAB - BLOOD ORDERABLES Performing Organization Address [facility] e Number [facility] [address] [place], [place] [address] [facility] LAB Glucose (08/21/2013 5:55 AM PAINT CREW SUPERVISOR) athologist Signature Glucose 91 60 - [address] [facility] mg/dL [facility] LAB Specimen Anatomical Collection Method Collection Time Receive d Time (Source) Location / / Volume Laterality Blood specimen 08/21/2013 5:55 AM 014 6:45 (specimen) PAINT CREW SUPERVISOR AM PAINT CREW SUPERVISOR Horacio Geller MD LAB - BLOOD ORDERABLES Performing Organization Address [facility] e Number [facility] [address], [place] [address] [facility] LAB (ABNORMAL) Glucose by meter (08/20/2013 8:36 PM PAINT CREW SUPERVISOR) athologist Signature Glucose 112 (H) 60 - 99 POINT OF CARE mg/dL TEST, GLUCOSE Specimen Anatomical Collection Method Collection Time Receive d Time (Source) Location / / Volume Laterality 08/20/2013 8:36 PM 4 8:40 PAINT CREW SUPERVISOR PM PAINT CREW SUPERVISOR Horacio Geller MD LAB - BEAKER POCT Performing Organization Address City/[facility]/ZIP [facility] Phon e Number F[facility] POINT OF CARE TEST, GLUCOSE POINT OF CARE TEST, GLUCOSE (ABNORMAL) Glucose by meter (08/20/2013 4:42 PM PAINT CREW SUPERVISOR) athologist Signature Glucose 114 (H) 60 - 99 POINT OF CARE mg/dL TEST, GLUCOSE Specimen Anatomical Collection Method Collection Time Receive d Time (Source) Location / / Volume Laterality 08/20/2013 4:42 PM 4 4:45 PAINT CREW SUPERVISOR PM PAINT CREW SUPERVISOR Horacio Geller MD LAB - BEAKER POCT Performing Organization Address City/State/ZIP Code Phon e Number FV POINT OF CARE TEST, GLUCOSE POINT OF CARE TEST, GLUCOSE XR Knee Port Right 1/2 Views (08/20/2013 10:55 AM PAINT CREW SUPERVISOR) Anatomical Region Laterality Modality Right Knee Right Computed Radiography Specimen (Source) Anatomical Location Collection Method / Collectio n Time Received Time / Laterality Volume Impressions 08/20/2013 12:30 PM PAINT CREW SUPERVISOR IMPRESSION: Right medial unicondylar arthroplasty. ?? LAY COOPER MD Narrative 08/20/2013 12:30 PM PAINT CREW SUPERVISOR KNEE PORTABLE ONE TO TWO VIEWS August [...] CAREN IZAGUIRRE Platelet count (08/20/2013 6:20 AM PAINT CREW SUPERVISOR) P athologist Signature Platelet Count 171 150 - 450 [place] 10e9/L [facility] LAB Specimen Anatomical Collection Method Collection Time Receive d Time (Source) Location / / Volume Laterality 08/20/2013 6:20 AM 4 6:33 PAINT CREW SUPERVISOR AM PAINT CREW SUPERVISOR Morgan Waggoner MD LAB - BLOOD ORDERABLES Performing Organization Address City/State/ZIP Code Phon e Number M [facility] [address], [place] [address] [facility] LAB Potassium (08/20/2013 6:20 AM PAINT CREW SUPERVISOR) P athologist Signature Potassium 4.0 3.4 - 5.[address] [facility] mmol/L HOSPITAL LAB Specimen Anatomical Collection Method Collection Time Receive d Time (Source) Location / / Volume Laterality Blood specimen 08/20/2013 6:20 AM 014 6:33 (specimen) PAINT CREW SUPERVISOR AM PAINT CREW SUPERVISOR Morgan Waggoner MD LAB - BLOOD ORDERABLES Performing Organization Address City/[facility]/ZIP Code [place] [address] [address] [place], [place] [address] [facility] LAB Creatinine (08/20/2013 6:20 AM PAINT CREW SUPERVISOR) athologist Signature Creatinine 0.89 0.66 - [place] 1.25 mg/dL [facility] LAB GFR Estimate 89 >60 [place] mL/min/1.7 [facility] m2 [facility] LAB GFR Estimate If >90 >60 [place] mL/min/[address] [place] [address] LAB Specimen Anatomical Collection Method Collection Time Receive d Time (Source) Location / / Volume Laterality Blood specimen 08/20/2013 6:20 AM 014 6:33 (specimen) PAINT CREW SUPERVISOR AM PAINT CREW SUPERVISOR Morgan Waggoner MD LAB - BLOOD ORDERABLES Performing Organization Address City/[facility]/[place] [address] [place], [place] [address] [facility] LAB Hemoglobin (08/20/2013 6:20 AM PAINT CREW SUPERVISOR) athologist Signature Hemoglobin 14.5 13.3 - 17.7 [facility] g/dL HOSPITAL LAB Specimen Anatomical Collection Method Collection Time Receive d Time (Source) Location / / Volume Laterality Blood specimen 08/20/2013 6:20 AM 014 6:33 (specimen) PAINT CREW SUPERVISOR AM PAINT CREW SUPERVISOR Morgan Waggoner MD LAB - BLOOD ORDERABLES Performing Organization Address City/[facility]/[place] [address] [address] [place], [place] [address] [facility] LAB (ABNORMAL) Glucose by meter (08/20/2013 6:03 AM PAINT CREW SUPERVISOR) P athologist Signature Glucose 107 (H) 60 - 99 POINT OF CARE mg/dL TEST, GLUCOSE Specimen Anatomical Collection Method Collection Time Receive d Time (Source) Location / / Volume Laterality 08/20/2013 6:03 AM 4 6:05 PAINT CREW SUPERVISOR AM PAINT CREW SUPERVISOR Horacio Geller MD LAB - BEAKER POCT Performing Organization Address City/State/ZIP Code Phon e Number FV POINT OF CARE TEST, GLUCOSE POINT OF CARE TEST, GLUCOSE documented in this encounter Visit Diagnoses Not on filedocumented in this encounter Administered Medications Inactive Administered Medications - up to 3 most recent administrations Medication Order MAR Action Action Date Dose Rate Site 0.9 % sodium chloride IV Rate/Dose Verify 08/20/2013 5:00 PM 1,000 mLs 125 mL/hr solution PAINT CREW SUPERVISOR at 125 mL/hr, Intravenous, CONTINUOUS, Change to saline lock when PO well tolerated., Post-procedure, Starting on Fri08/20/13 at 1300, Until 08/21/13 at 1628 New Bag 08/20/2013 1:11 PM PAINT CREW SUPERVISOR 1,000 mLs 125 mL/hr acetaminophen (OFIRMEV) 10 [...] tablet 650 mg Given 08/21/2013 12:43 PM PAINT CREW SUPERVISOR 650 mg 650 mg, Oral, EVERY 6 HOURS, First dose on Fri08/20/13 at 1800, Maximum acetaminophen dose from all sources = 75 mg/kg/day not to exceed 4 grams/day., Post-procedure Given 08/21/2013 5:59 AM PAINT CREW SUPERVISOR 650 mg Given 08/21/2013 12:32 AM PAINT CREW SUPERVISOR 650 mg ceFAZolin (ANCEF) IVPB 2 g (pre-mix) New Bag 08/21/2013 1:32 AM PAINT CREW SUPERVISOR 2 g 200 mL/hr Routine, 2 g, Intravenous, EVERY 8 HOURS, First dose on Fri08/20/13 at 1800, For 2 doses, First post-op dose due 8 hours after intra-op dose, see eMAR. , Indications: Perioperative Pharmacoprophylaxis, Post-procedure New Bag 08/20/2013 7:03 PM PAINT CREW SUPERVISOR 2 g 200 mL/hr celecoxib (celeBREX) capsule 200 mg Given 08/21/2013 8:28 AM PAINT CREW SUPERVISOR 200 mg 200 mg, Oral, 2 TIMES DAILY, First dose on 08/21/13 at 0900, For 4 doses, For patients less than 65 years old. Do not give until Ketorolac dosing is complete or if ibuprofen ordered., Post-procedure celecoxib (celeBREX) capsule 400 mg Given 08/20/2013 6:38 AM PAINT CREW SUPERVISOR 400 mg 400 mg, Oral, ONCE, On Fri08/20/13 at 0615, For 1 dose, Pre-procedure cyanocolbalamin (vitamin B-12) tablet 500 Given 08/21/2013 8:29 AM PAINT CREW SUPERVISOR 500 mcg mcg 500 mcg, Oral, DAILY, First dose on 08/21/13 at 0900, Post-procedure enoxaparin (LOVENOX) injection 40 mg Given 08/21/2013 8:28 AM PAINT CREW SUPERVISOR 40 mg 40 mg, Subcutaneous, EVERY 24 [...] injection 25-50 mcg Given 08/20/2013 10:34 AM PAINT CREW SUPERVISOR 50 mcg 25-50 mcg, Intravenous, EVERY 2 MIN PRN, other, acute pain, Starting on Fri08/20/13 at 0948, MAX cumulative dose = 250 mcg. Use Fentanyl initially, as a short acting agent for acute pain control. If insufficient, or a longer acting agent is needed, begin Morphine or Hydromorphone if ordered., PACU Given 08/20/2013 10:18 AM PAINT CREW SUPERVISOR 50 mcg fluticasone (FLOVENT DISKUS) 250 mcg/puff Given 08/21/2013 8:33 AM PAINT CREW SUPERVISOR 250 mcg inhaler 250 mcg 250 mcg (1 puff), Inhalation, 2 TIMES DAILY, First dose on Fri08/20/13 at 2100, Auto sub Flovent diskus for Qvar , Post-procedure gabapentin (NEURONTIN) tablet 600 mg Given 08/20/2013 6:37 AM PAINT CREW SUPERVISOR 600 mg 600 mg, Oral, ONCE, On Fri08/20/13 at 0615, For 1 dose, Pre-procedure HYDROmorphone (DILAUDID) injection 0.2 m g Given 08/20/2013 4:46 PM PAINT CREW SUPERVISOR 0.2 mg 0.2 mg, Intravenous, EVERY 30 MIN PRN, moderate to severe pain, Starting on Fri08/20/13 at 1255, Post-procedure HYDROmorphone (DILAUDID) injection 0.3-0.5 Given 08/20/2013 11:03 AM PAINT CREW SUPERVISOR 0.5 mg mg 0.3-0.5 mg, Intravenous, EVERY 5 MIN PRN, moderate to severe pain, acute pain. May administer if RR is > 10 , Starting on Fri08/20/13 at 0948, If fentanyl is also ordered, use HYDROmorphone if pain control insufficient with fentanyl or a longer acting agent is needed. Max cumulative dose = 2 mg , PACU Given 08/20/2013 10:24 AM PAINT CREW SUPERVISOR 0.5 mg hydrOXYzine (ATARAX) tablet 25 mg Given 08/21/2013 10:19 AM PAINT CREW SUPERVISOR 25 mg 25 mg, Oral, 3 TIMES DAILY PRN, other, pain, Starting on Fri08/20/13 at 1255, Post-procedure Given 08/21/2013 4:21 AM PAINT CREW SUPERVISOR 25 mg Given 08/20/2013 10:09 PM PAINT CREW SUPERVISOR 25 mg ondansetron (ZOFRAN) injection 4 mg Given 08/21/2013 4:20 AM PAINT CREW SUPERVISOR 4 mg 4 mg, Intravenous, EVERY 6 HOURS, Administer over 2-5 Minutes, First dose on Fri08/20/13 at 1600, For 4 doses, Post-procedure oxyCODONE (OxyCONTIN) 12 hr tablet 10 mg Given 08/20/2013 6:38 AM PAINT CREW SUPERVISOR 10 mg 10 mg, Oral, ONCE, On Fri08/20/13 at 0615, For 1 dose, DO NOT CRUSH., Pre-procedure oxyCODONE (OxyCONTIN) 12 hr tablet 20 mg Given 08/21/2013 8:28 AM PAINT CREW SUPERVISOR 20 mg 20 mg, Oral, EVERY 12 HOURS, First dose on Fri08/20/13 at 2000, Post-procedure Given 08/20/2013 8:06 PM PAINT CREW SUPERVISOR 20 mg oxyCODONE (ROXICODONE) immediate release Given 08/21/2013 12:43 PM PAINT CREW SUPERVISOR 10 mg tablet 5-10 mg 5-10 mg, Oral, EVERY 3 HOURS PRN, moderate to severe pain, Starting on Fri08/20/13 at 1255, Post-procedure Given 08/21/2013 10:04 AM PAINT CREW SUPERVISOR 10 mg Given 08/21/2013 7:07 AM PAINT CREW SUPERVISOR 10 mg ranitidine (ZANTAC) tablet 150 mg Given 08/21/2013 8:28 AM PAINT CREW SUPERVISOR 150 mg 150 mg, Oral, 2 TIMES [...] flush 3 mL Given 08/21/2013 4:20 AM PAINT CREW SUPERVISOR 3 mLs 3 mL, Intravenous, EVERY 8 HOURS, First dose on Fri08/20/13 at 1300, to lock peripheral IV dormant line. Also Ordered Q1H PRN, Post-procedure sodium chloride 0.9 % BOLUS New Bag 08/20/2013 1:11 PM PAINT CREW SUPERVISOR 1,000 m Ls 500 mL/hr 1,000 mL Intravenous, 1,000 mL, ONCE, at 500 mL/hr, Administer over 2 Hours, On Fri08/20/13 at 1300, For 1 dose, Give over 2 hours as soon as pt arrives on floor, Post-procedure sodium chloride 0.9% (bag) irrigation Given 08/20/2013 8:27 AM PAINT CREW SUPERVISOR 1,500 mLs PRN, Starting on Fri08/20/13 at 0827, Area to irrigate and instructions: ., Intra-procedure testosterone (ANDROGEL 1.62% PUMP) GEL 40.5 Given 06/2013 10:06 AM PAINT CREW SUPERVISOR 40.5 mg mg 40.5 mg (2 pump), Topical, DAILY, First dose on Fri08/20/13 at 1800, Patient will need to bring in own home med supply if wants to use in hospital, Post-procedure Given 08/20/2013 7:23 PM PAINT CREW SUPERVISOR 40.5 mg documented in this encounter Active and Recently Administered Medications Times are shown in PAINT CREW SUPERVISOR. Scheduled Medication Order 08/19/2013 08/20/2013 08/21/2013 acetaminophen [...] 0733 (Given - Provider: Jovita Figueroa APRN RN PSYCHIATRIC)1001 (Given - Provider: Jovita Figueroa APRN RN PSYCHIATRIC) 3 g, Intravenous, PRE-OP/PRE-PROCEDURE, For 1 dose, Give first dose within 1 hour PRIOR to incision., Indications: Surgical Prophylaxis, Pre-procedure ceFAZolin (ANCEF) IVPB 2 g (pre-mix) (COMPLETED) 190 (New Bag - Provider: Prela Lopez RN) 013 (New Bag - Provider: Olivia durbin RN) 2 g, Intravenous, EVERY 8 HOURS, First d ose on Fri08/20/13 at 1800, For 2 doses, First post-op dose due 8 hours after intra-op dose, see eMAR. , Indications: Surgical Prophylaxis, Post-procedure celecoxib (celeBREX) capsule 200 mg 0828 (Given - Provider: Nolvia Garcia LPN) 200 [...] cedure enoxaparin (LOVENOX) injection 40 mg (CANCELED) 08 (Given - Provider: Nolvia Garcia LPN) 40 [...] Reason: Patient/family refused - Comment: pt not nauseated)221 (Not Given - Provider: Ollie Lopez RN - Reason: Patient/family refused - Comment: pt not nauseated) 0420 (Given - Provider: Olivia Clemente RN)1005 (Not Given - Provider: Nolvia Garcia LPN - Reason: Patient/family refused) 4 mg, Intravenous, EVERY 6 HOURS, for 2 Minutes, First dose on Fri08/20/13 at 1600, For 4 doses, Post-procedure oxyCODONE (OxyCONTIN) 12 hr tablet 10 mg (COMPLETED) 637 (Given - Provider: Saniya Cates RN) 10 [...] Perla Lopez RN - Reason: Patient/family refused) 08 (Given - Provider: Nolvia Garcia LPN) 150 mg, Oral, 2 TIMES DAILY, First dose on Fri08/20/13 at 21 00, Post-procedure senna-docusate (SENOKOT-S;PERICOLACE) 8. 6-50 MG per tablet 1-2 tablet (CANCELED) 2009 (Not Given - Provider: Ollie Lopez RN - Reason: Patient/family refused) 827 (Given - Provider: Nolvia Garcia LPN) 1-2 [...] mL (CANCELED) 1311 (Not Given - Provider: Kairme Quinn RN - Reason: IV Infusing)2010 (Not [...] by self) 1006 (Given - Provider: Nolvia carreon LPN) 2 pump = 40.5 mg, Topical, DAILY, [...] (COMPLETE D) 1021 (Given - Provider: Janet Serrano RN) 1,000 mg, Intravenous, at 400 mL/hr, ONC [...] PRN, modera te to severe pain, Starting 08/20/13 at 1255, Post-procedure sodium chloride 0.9% (bag) irrigation (CANCELED) 0827 (Given - Provider: Jose Fonseca MD) PRN, Starting Fri08/20/13 at 0827, Area to irrigate and instructions: ., Intra-procedure documented in this encounter Care Teams Musical Instrument Maker Or Repairer Relationship Specialty Start Date End Date Ian Kendrick MD PCP - General 11/19/07 02/21/[address] [id number] documented as of this encounter
--- OUTSIDE RECORDS SUMMARY | 2022-05-15 22:37 | XMS_ITS | Encounter Summary ---
:1955 Author Organization [facility] Address [address] [place] [address] Care Team Providers Name Role Phone Ian Kendrick MD Primary Care Provider [phone] Reason for Visit Reason Onset Date Comments Refill Request 08/12/2012 Pro air Encounter Details Date Type Department Care Team Description 08/12/[address] [facility] Ian Kendrick Refill Request ([facility] [address] MD Jeremiah air) [address] [place] [address] [place] [phone] [facility] [phone] [place] [address] (Wo rk) Social History Tobacco Use Types Packs/Day Years Used Date Smoking Tobacco: Former Cigarettes Smokeless Tobacco: Never Comments: 2005 Alcohol Use Standard Drinks/Week Comments Yes 0 (1 standard drink = 0.6 oz pure alcoho l) 4 BEERS A WEEK Alcohol Habits Answer Date Recorded How often do you have a drink containing 4 or more times a w [place] 05/25/2021 alcohol? How many drinks containing alcohol [...] you attend faith or Patient refused 2020 islam services? Do [...] Notes Telephone Encounter - Chacha Laboy - 08/12/2012 10:34 AM CST [phone] Is pt still in [place]? Attempted to call him and no answer. Will refill to the [facility] in [address] and if he needs it in [place] indicated they can transfer it to him. RF request for Proair Oral Inhaler Ok per RN protocol. JENNIFER:05/27/2012 Chacha Laboy RN BP Readings from Last 1 Encounters: 05/27/12 140/88 AAP date: 05/27/2012 -Asthma Action Plan (AAP) on file -If >6 canisters requested per yr, refer to PCP (approx 200 puffs/canister) -Encounter/OV: every 12 months -Max RF's until next OV related to diagnosis: 12months -If AAP not clear, refer to PCP or ask pt to make OV Category: Asthma & COPD/Bronchodialtor Inhalers ETING PRODUCTION SPECIALIST documented in this encounter Plan of Treatment Upcoming Encounters Date Type Specialty Care Team Description 05/20/2022 Lab Lab documented as of this encounter Visit Diagnoses Diagnosis Mild persistent asthma - Primary Unspecified asthma documented in this encounter Care Teams Cottonseed Meat Presser Relationship Specialty Start Date End Date Ian Kendrick MD PCP - General 11/19/07 02/21/14 [place] [id number] [place] [address] documented as of this encounter
--- OUTSIDE RECORDS SUMMARY | 2022-05-15 22:37 | XMS_ITS | Encounter Summary ---
:1955 Author Organization [facility] Address [address] [place] [address] Care Team Providers Name Role Phone Ian Kendrick MD Primary Care Provider [phone] Reason for Visit Reason Onset Date Comments Nurse Advice Line 01/06/2013 back pain Encounter Details Date Type Department Care Team Description 01/06/2013 Telephone [facility] Ian Kendrick Nurse Advice Line [facility] [place] MD Jeremiah (back pain) [address] [place] [address] [place] [phone] [facility] [phone] [place] [address] (Wo rk) Social History Tobacco Use Types Packs/Day Years Used Date Smoking Tobacco: Former Cigarettes Smokeless Tobacco: Never Comments: 2004 Alcohol Use Standard Drinks/Week Comments Yes 0 (1 standard drink = 0.6 oz pure alcoho l) 4 BEERS A WEEK Alcohol Habits Answer Date Recorded How often do you have a drink containing 4 or more times a w [place] 05/25/2021 alcohol? How many drinks containing alcohol [...] you attend orthodox or Patient refused 2020 denominational services? Do [...] this encounter Miscellaneous Notes Telephone Encounter - BrijeshJessica cardenas - 01/06/2013 12:11 AM CDT Clinic Action Needed:none FNA Triage Call Presenting Problem:Virgil is having severe low back pain. I instructed ER, now and 911 if not able to get someone else to drive or if unable to get into a car. He's unsure what he'll do. Guideline Used:back symptoms Patient Recommendations/Teaching:ER. Another to drive. 911 if needed Routed to:n/a Lisa Wilde RN [facility] documented in this encounter Plan of Treatment Upcoming Encounters Date Type Specialty Care Team Description 05/20/2022 Lab Lab documented as of this encounter Visit Diagnoses Not on filedocumented in this encounter Care Teams Security Business Analyst Relationship Specialty Start Date End Date Ian Kendrick MD PCP - General 11/19/07 02/21/14 [facility]3] [address] [place] [address] documented as of this encounter
--- OUTSIDE RECORDS SUMMARY | 2022-05-15 22:37 | XMS_ITS | Encounter Summary ---
:1955 Author Organization [facility] Address [address] [place] [address] Care Team Providers Name Role Phone Ian Kendrick MD Primary Care Provider [phone] Reason for Visit Reason Onset Date Comments Nurse Advice Line 01/06/2013 Encounter Details Date Type Department Care Team Description 01/06/2013 Telephone [facility] Ian Kendrick Nurse Advice Line [place] MD Jeremiah [address] [place] [address] [facility] [phone] [place] [address] (Wo rk) Social History Tobacco Use Types Packs/Day Years Used Date Smoking Tobacco: Former Cigarettes Smokeless Tobacco: Never Comments: 2005 Alcohol Use Standard Drinks/Week Comments Yes 0 (1 standard drink = 0.6 oz pure alcoho l) 4 BEERS A WEEK Alcohol Habits Answer Date Recorded How often do you have a drink containing 4 or more times a w [place] 05/25/2021 alcohol? How many drinks containing alcohol [...] you attend restorationist or Patient refused 2020 bahai services? Do [...] encounter Miscellaneous Notes Telephone Encounter - Daysi Sifuentes - 01/06/2013 10:50 AM CDT [facility] Triage Call Report Patient Name: Virgil Christine Call Date & Time: 01/06/2013 12:00:24AM Patient PCP Name: PCP No MRN: Patient Address: [facility] [address] [place] [address] Patient Date of : 1955 Age: 57 yr. Patient Gender: Male Management Scientist Name: Jessica Coley Presenting Problem: Virgil is having severe low back pain. I instructed ER, now and 911 if not able to get someone else to drive or if unable to get into a car. He's unsure what he'll do. Triage Note: Guideline Title: Back Symptoms Recommended Disposition: Override Disposition: See ED Immediately Question Response Question Note New or worsening signs and symptoms that may indicate No shock Any other cardiac signs/symptoms for more than 5 minutes, No now or within last hour. Pain is NOT associated with taking a deep breath or a productive cough, movement, or touch to a localized area on the chest or upper body. New paralysis (unable to move); new weakness (not due to No pain); new loss of coordination (purposeful action) OR new unexplained numbness/tingling involving arm and leg on same side of body Following significant trauma or injury to neck or back No AND immobile since event Age 50 years or older with sudden onset of deep boring or No tearing pain in back OR abdomen; may radiate to groin, hips or lower extremities Back pain associated with any breathing symptoms (such as No noisy breathing, struggling to breathe, sudden change in respiratory rate) Painful spasms or cramping of large muscle groups No (back, legs or abdomen) AND recent heat exposure Pain predominately in flank area No Urinary tract symptoms are primary symptoms No Urinary tract symptoms are primary symptoms No , less than 20 weeks gestation No and gestation 20-37 weeks AND low backache/pain No that is constant or increasing in intensity and gestation greater than 37 weeks AND low No backache/pain that is constant or increasing in intensity , back symptoms AND no signs of labor No New onset or unexplained change in bowel or bladder control No (unable to urinate and full feeling or loss of control of bowel or bladder) Numbness in the groin and saddle area of pelvis AND lower No extremity weakness OR change in bowel or bladder control (loss of control, retention, overflow) New onset of severe disabling back pain (unable to stand Yes upright) Physician Contacted: Physician Instructions: No Care Advice: - Protect the patient from falling or other harm. - Another adult should drive. - Do not give the patient anything to eat or drink. MEDICAL HISTORY Conditions: Condition Note: .Other DVT's in R leg Anxiety Medication: Medication Note: Coumadin .Other - RX Med, not on list Anti anxiety Allergy: Reaction: .Other .Other Procedure: Procedure Note: .Denies documented in this encounter Plan of Treatment Upcoming Encounters Date Type Specialty Care Team Description 05/20/2022 Lab Lab documented as of this encounter Visit Diagnoses Not on filedocumented in this encounter Care Teams Associate Dentist Relationship Specialty Start Date End Date Ian Kendrick MD PCP - General 11/19/07 02/21/14 [facility] [address] [place] [address] documented as of this encounter
--- OUTSIDE RECORDS SUMMARY | 2022-05-15 22:37 | XMS_ITS | Encounter Summary ---
:1955 Author Organization [facility] Address [address] [place] [address] Care Team Providers Name Role Phone Ian Kendrick MD Primary Care Provider [phone] Reason for Visit Reason Onset Date Comments Deep Vein Thrombosis 08/17/2013 Encounter Details Date Type Department Care Team Description 08/17/2013 Telephone [facility] Ian Kendrick Deep V ein Thrombosis Clinic [place] MD Jeremiah [address] [place] [address] [place] [phone] [facility] [phone] [place] [address] (Wo rk) Social History Tobacco [...] you attend hindu or Patient refused 2020 roman catholic services? [...] this encounter Miscellaneous Notes Telephone Encounter - Ian Kendrick MD - 08/17/2013 1:55 PM INSURANCE MANAGER Spoke with Hematology regarding his history of DVT and anticardiopilin antibodies - recommended Xarelto 10mg once daily for 30 days following surgery for DVT prophylaxis Spoke with patient who understands plan. Spoke with Orthopedics - they will prescribe the medication for patient in the hospital and for 30 day course. RANCE MANAGER documented in this encounter Plan of Treatment Upcoming Encounters Date Type Specialty Care Team Description 05/20/2022 Lab Lab documented as of this encounter Visit Diagnoses Diagnosis Anticardiolipin antibody positive - Prim dillon Other and unspecified nonspecific immuno logical findings Personal history of DVT (deep vein throm bosis) Personal history of venous thrombosis an d embolism documented in this encounter Care Teams Precision Instrument Maker Relationship Specialty Start Date End Date Ian Kendrick MD PCP - General 11/19/07 02/21/14 [facility] [address] [place] [address] documented as of this encounter
--- OUTSIDE RECORDS SUMMARY | 2022-05-15 22:37 | XMS_ITS | Encounter Summary ---
:1955 Author Organization [facility] Address [address] [place] [address] Care Team Providers Name Role Phone Ian Kendrick MD Primary Care Provider [phone] Reason for Visit Reason Onset Date Comments Refill Request 05/04/2013 Encounter Details Date Type Department Care Team Description 05/04/2013 Refill [facility] Ian Kendrick, Refill Request Chhaya [address] [address] [place] [phone] [facility] [phone] [facility] [address] (Wo rk) Social History Tobacco Use [...] you attend rastafari or Patient refused 2020 synagogue services? Do [...] encounter Miscellaneous Notes Telephone Encounter - Esthela Merritt, RN - 05/04/2013 3:38 PM CST Rx resent for pt' Esthela Merritt RN FLE BOARD OPERATOR documented in this encounter Plan of Treatment Upcoming Encounters Date Type Specialty Care Team Description 05/20/2022 Lab Lab documented as of this encounter Visit Diagnoses Diagnosis ULCERATIVE COLITIS NOS - Primary Ulcerative colitis, unspecified documented in this encounter Care Teams Electronics Specialist Relationship Specialty Start Date End Date Ian Kendrick MD PCP - General 11/19/07 02/21/[address] [address] documented as of this encounter
--- OUTSIDE RECORDS SUMMARY | 2022-05-15 22:37 | XMS_ITS | Encounter Summary ---
:1955 Author Organization [facility] Address [address] [place] [address] Care Team Providers Name Role Phone Ian Kendrick MD Primary Care Provider [phone] Reason for Visit Reason Comments Physical pt is fasting for labs. Encounter Details Date Type Department Care Team Description 07/07/2013 Office Visit [facility] Ian Kendrick e general medical examination at a health care facility (Primary Dx); Clinic Chhaya Daniels MD Need for prophylactic vaccination with c ombined fvmnhtvuxc-kxhhxoq-qeyrmzhyu (DTP) vaccine; [id number] [facility] CATHERINE Mild persistent asthma; [place], [place] CLINIC Erectile dysfunction; [phone] ULCERATIVE COLITIS NOS; [phone] Edema leg; [place], [place] Lateral ep icondylitis; [address] Lichen planus; [phone] Insomnia; (Work) Low libido; Gross hem aturia; Elevated blood pressure reading without diagnosis of hypertension; Cervical radicu lopathy; Special screeni ng for malignant neoplasm of prostate; Need for hepati tis C screening test; Hyperlipidemia LDL goal < 130 Social History Tobacco Use Types Packs/Day Years [...] Sign Reading Time Taken Comments Blood Pressure 147/88 07/07/2013 10:01 AM CLIENT SERVICE MANAGER Pulse 87 07/07/2013 10:01 AM CLIENT SERVICE MANAGER Temperature 36.9 ??C (98.5 ??F) 07/07/2013 10:01 AM CLIENT SERVICE MANAGER Respiratory Rate - - Oxygen Saturation 96% 07/07/2013 10:01 AM CLIENT SERVICE MANAGER Inhaled Oxygen Concentration - - Weight 108.5 kg (239 lb 2 oz) 07/07/2013 10:01 AM CLIENT SERVICE MANAGER Height 180.3 cm (5' 11) 07/07/2013 10:01 AM CLIENT SERVICE MANAGER Body Mass Index 33.35 07/07/2013 10:01 AM CLIENT SERVICE MANAGER documented in this encounter Patient Instructions Patient InstructionsFlorentin Paky - 07/07/2013 10:08 AM CST blood pressure - return to clinic in 1 month for recheck of blood pressure and weight. I will contact you with the results and determine the follow up plan at that time. Diet recommendation - Eat to Live - Dr. Morgan Beth Preventive Health Recommendations Male Ages 50 - 64 Yearly exam: ?? See your health care provider every year in order to o Review health changes. o Discuss preventive care. o Review your medicines if your doctor has prescribed any. Have a cholesterol test every 5 years, or more frequently if you are at risk for high cholesterol/heart disease. Have a diabetes test (fasting glucose) every three years. If you are at risk for diabetes, you should have this test more often. Have a colonoscopy at age 50, or have a yearly FIT test (stool test). These exams will check for colon cancer. Talk with your health care provider about whether or not a prostate cancer screening test (PSA) is right for you. You should be tested each year for STDs (sexually transmitted diseases), if you???re at risk. Shots: Get a flu shot each year. Get a tetanus shot every 10 years. Nutrition: Eat at least 5 servings of fruits and vegetables daily. Eat whole-grain bread, whole-wheat pasta and brown rice instead of white grains and rice. For bone health: Eat calcium-rich foods or take calcium pills (500 to 600 mg) twice a day with food. Also take vitamin D (1000 IU) each day. Lifestyle Exercise for at least 150 minutes a week (30 minutes a day, 5 days a week). This will help you control your weight and prevent disease. Limit alcohol to one drink per day. No smoking. Wear sunscreen to prevent skin cancer. See your dentist every six months for an exam and cleaning. See your eye doctor every 1 to 2 years. NT SERVICE MANAGER documented in this encounter Progress Notes Ian Kendrick MD - 07/11/2013 4:57 PM CLIENT SERVICE MANAGER Quick Note: Your recent lab test did show worsened testosterone function. I would consider starting you on testosterone replacement therapy if your are interested. Please schedule an appointment at your convenience. Your cholesterol was also elevated, but not at the point where you need medication. I would recommend a recheck in 1 year. Your blood glucose (blood sugar), a screening test for diabetes, was slightly elevated but stable since your last test. This qualifies as impaired fasting glucose, which can be thought of as a pre-diabetes state. Improvements in diet and exercise may prevent or delay the onset of diabetes. I would recommend a recheck of your blood glucose in 1 year. Your PSA level, a screening test for prostate cancer, was normal. There is considerable controversyregarding the decision to screen asymptomatic men for prostate cancer. I usually recommend that the decision to screen be made on a oetd-or-yjqi basis once yearly. Your Hepatitis C virus screening test was negative. Current recommendations are that screening be done only once, so you will not need this test again. Please contact the clinic if you have further questions or concerns. Sincerely, Ian Kendrick MD NT SERVICE MANAGER Ian Kendrick MD - 07/07/2013 10:08 AM CST SUBJECTIVE: CC: Virgil Christine is an 57 year old male who presents for preventative health visit. Healthy Habits: ?? Do you get at least three servings of calcium containing foods daily (dairy, green leafy vegetables, etc.)? yes ?? Amount of exercise or daily activities, outside of work: 3 day(s) per week ?? Problems taking medications regularly No ?? Medication side effects: No ?? Have you had an eye exam in the past two years? no ?? Do you see a dentist twice per year? no ?? Do you have sleep apnea, excessive snoring or daytime drowsiness?no Other concerns to address: Numbness left hand and palm. 2 fingers left arm pain to shoulder Today's PHQ-2 Score: 0 Abuse: Current or Past(Physical, Sexual or Emotional)- No Do you feel safe in your environment - Yes History Substance Use Topics ??? Smoking status: Former Smoker Types: Cigarettes ??? Smokeless tobacco: Never Used Comment: 2004 ??? Alcohol Use: Yes Comment: 4 BEERS A WEEK The patient does not drink >3 drinks per day nor >7 drinks per week. Last PSA: PSA Date Value Range Status 11/28/2006 0.18 Edited Recent Labs Lab Test 08/10/11 0933 10/27/07 1002 CHOL 218* 176 HDL 47 37* LDL 140* 118 TRIG 157* 107 CHOLHDLRATIO 4.7 4.8 Reviewed orders with patient. Reviewed health maintenance and updated orders accordingly - Yes All Histories reviewed and updated in [facility]. ROS: C: NEGATIVE for fever, chills, change [...] arthralgias or myalgia N: NEGATIVE for weakness, dizziness. cervical radiculopathy type pain in left hand and arm. P: NEGATIVE for changes in mood or affect Problem list, Medication list, Allergies, and Medical/Social/Surgical histories reviewed in EPIC andupdated as appropriate. OBJECTIVE: BP 147/88 Pulse 87 Temp 98.5 ??F (36.9 ??C) (Oral) Ht 5' 11 (1.803 m) Wt 239 lb 2 oz (108.466 kg) BMI 33.37 kg/m2 SpO2 96% Estimated Body mass index is 33.37 kg/(m^2) as calculated from the following: Height as of this encounter: 5' (1.803 m). Weight as of this encounter: 239 lb 2 oz(108.466 kg). GENERAL APPEARANCE: healthy, alert and no distress EYES: Eyes grossly normal to inspection, PERRL and conjunctivae and sclerae normal HENT: ear canals and TM's normal, nose and mouth without ulcers or lesions, oropharynx clear and oral mucous membranes moist NECK: no adenopathy, no asymmetry, masses, or scars and thyroid normal to palpation RESP: lungs clear to auscultation - no rales, rhonchi or wheezes CV: regular rates and rhythm, normal S1 S2, no S3 or S4, no murmur, click or rub, no peripheral edema and peripheral pulses strong ABDOMEN: soft, nontender, no hepatosplenomegaly, no masses and bowel sounds normal (male): normal male genitalia without lesions or urethral discharge, no hernia RECTAL: normal sphincter tone, no rectal masses, prostate of normal size, smooth, nontender without nodules or masses MS: no musculoskeletal defects are noted and gait is age appropriate without ataxia SKIN: no suspicious lesions or rashes NEURO: decreased strength and tone in left upper extremity. decreased sensation to light touch on 4th and 5th digits on left hand. positive Spurling test on left. neurologic exam otherwise within normal limits. PSYCH: mentation appears normal and affect normal/bright ASSESSMENT/PLAN: V70.0 Routine general medical examination at a health care facility (primary encounter diagnosis) Comment: Plan: Discussed diet and aerobic exercise. See other preventative health recommendations in orders. V06.1 Need for prophylactic vaccination with combined kzxvviiriu-grcimgn-eigujqwrn (DTP) vaccine Comment: Plan: TDAP ( BOOSTRIX AGES 10-64), VACCINE ADMINISTRATION, INITIAL 493.90 Mild persistent asthma Comment: Plan: ipratropium (ATROVENT HFA) 17 MCG/ACT inhaler, beclomethasone (QVAR) 80 MCG/ACT Inhaler, ASTHMA CONTROL TEST well controlled, continue current regimen. 607.84 Erectile dysfunction Comment: Plan: sildenafil (VIAGRA) 50 MG tablet Refilled. 556.9 ULCERATIVE COLITIS NOS Comment: Plan: loperamide (IMODIUM) 2 MG capsule continues symptomatic cares 782.3 Edema leg Comment: Plan: Furosemide (LASIX) 20 MG tablet Much improved since improving his diet, still needs furosemide prn. 697.0 Lichen planus Comment: Plan: triamcinolone (KENALOG) 0.1 % cream Refilled. 780.52 Insomnia Comment: Plan: 799.81 Low libido Comment: Plan: CBC with platelets, Testosterone total, Sex hormone binding globulin history of borderline low testosterone. recheck now. I will contact the patient regarding his results and determine the follow up plan at that time. 599.71 Gross hematuria Comment: Plan: CBC with platelets, UA reflex to Microscopic and Culture, Prostate spec antigen screen Patient had one episode of gross hematuria following straining for bowel movement several months ago. He has had no issues since. We discussed that any hematuria in a man is considered abnormal and worth working up. His lab work is pending. I will contact the patient regarding his results and determine the follow up plan at that time. 796.2 Elevated blood pressure reading without diagnosis of hypertension Comment: Plan: CBC with platelets, Comprehensive metabolic panel Patient Instructions blood pressure - return to clinic in 1 month for recheck of blood pressure and weight. I will contact you with the results and determine the follow up plan at that time. Diet recommendation - Eat to Live - Dr. Morgan Beth 723.4 Cervical radiculopathy Comment: Plan: HYDROcodone-acetaminophen (NORCO) 5-325 MG per tablet Patient is seeing orthopedics for management of his presumed cervical radiculopathy. He recently had an EMG, but has not heard back on the results. 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 Check PSA for prostate cancer screening given the history of gross hematuria. V73.89 Need for hepatitis C screening test Comment: Plan: Hepatitis C antibody 272.4 Hyperlipidemia LDL goal < 130 Comment: Plan: Lipid panel reflex to direct LDL I will contact the patient regarding his results and determine the follow up plan at that time. Counseling Resources: ATP III Guidelines FRAX Risk Assessment ICSI Preventive Guidelines Dietary Guidelines for Americans, 2010 USDA's MyPlate regular exercise healthy diet/nutrition vision screening hearing screening Consider Hep C screening for patients born between 1945 and 1965 prostate cancer screening reports that he has quit smoking. His smoking use included Cigarettes. He has never used smokeless tobacco. Estimated Body mass index is 33.37 kg/(m^2) as calculated from the following: Height as of this encounter: 5' 11(1.803 m). Weight as of this encounter: 239 lb 2 oz(108.466 kg). Weight management plan: Current exercise routine: no regular exercise. Diet regimen was discussed and plan is self-directed dieting: reduce calories, reduce portions, reduce carbs, increase fruits/vegetables and avoid sweets. Ian Kendrick MD [facility] NT SERVICE MANAGER documented in this encounter Nursing Notes 07/07/2013 9:45 AM CST >> MARCO Daniels Jul 07, 2013 10:08 AM Patient presents with: Physical - pt is fasting for labs. Initial BP 147/88 Pulse 87 Temp 98.5 ??F (36.9 ??C) (Oral) Ht 5' 11 (1.803 m) Wt 239 lb 2 oz (108.466 kg) BMI 33.37 kg/m2 SpO2 96% Estimated Body mass index is 33.37 kg/(m^2) as calculatedfrom the following: Height as of this encounter: 5' 11(1.803 m). Weight as of this encounter: 239 lb 2 oz(108.466 kg). BP completed using cuff size: large Health maintenance- tdap today. aap and act done. Marco Pak NURSE TECH documented in this encounter Plan of Treatment Upcoming Encounters Date Type Specialty Care Team Description 05/20/2022 Lab Lab documented as of this encounter Procedures Procedure Name Priority Date/Time Associated Diagnosis Comme nts UA MACROSCOPIC WITH Routine 07/07/2013 10:58 Gross hematuria R esults for this REFLEX TO MICROSCOPIC AM CLIENT SERVICE MANAGER proced ure are in AND CULTURE the results section. TESTOSTERONE TOTAL Routine 07/07/2013 10:57 Low libido Resul ts for this AM CLIENT SERVICE MANAGER procedure are i n the results section. SEX HORMONE BINDING Routine 07/07/2013 10:57 Low libido Resu lts for this GLOBULIN AM CLIENT SERVICE MANAGER procedure are i n the results section. PROSTATE SPECIFIC Routine 07/07/2013 10:57 Gross hematur ia Results for this ANTIGEN SCREEN AM CLIENT SERVICE MANAGER Special screening for proc edure are in malignant neoplasm of the re sults prostate section. LIPID REFLEX TO Routine 07/07/2013 10:57 Hyperlipidemia LDL Re sults for this DIRECT LDL PANEL AM CLIENT SERVICE MANAGER goal < 130 procedure a re in the results section. HEPATITIS C ANTIBODY Routine 07/07/2013 10:57 Need for hepatit is C Results for this AM CLIENT SERVICE MANAGER screening test procedure are in the results section. COMPREHENSIVE Routine 07/07/2013 10:57 Elevated blood Results for this METABOLIC PANEL AM CLIENT SERVICE MANAGER pressure reading procedur e are in without diagnosis of the res ults hypertension section. CBC WITH PLATELETS Routine 07/07/2013 10:57 Low libido Results for this AM CLIENT SERVICE MANAGER Gross hematuria procedure are in Elevated blood the results pressure reading section. without diagnosis of hypertension ASTHMA ACTION PLAN Routine 07/07/2013 9:52 AM CLIENT SERVICE MANAGER documented in this encounter Results UA reflex to Microscopic and Culture (07/07/2013 10:58 AM CLIENT SERVICE MANAGER) [facility] gist Method Time Signature Color Urine Yellow [facility] Appearance Urine Clear [facility] Glucose Urine Negative NEG mg/dL [facility] Bilirubin Urine Negative NEG [facility] Ketones Urine Negative NEG mg/dL [facility] Specific [place] >1.030 1.003 - [place] Urine 1.035 [facility] Blood Urine Negative NEG [facility] pH Urine 5.5 5.0 - 7.0 [place] pH [facility] Protein Albumin Negative NEG mg/dL [place] Urine [facility] Urobilinogen 0.2 0.2 - 1.0 [place] Urine EU/dL [facility] Nitrite Urine Negative NEG [facility] Leukocyte Negative NEG [place] Esterase Urine [facility] Source Midstream [place] Urine [facility] Specimen Anatomical Collection Method Collection Time Receive d Time (Source) Location / / Volume Laterality Urine specimen 07/07/2013 10:58 4 (specimen) AM CLIENT SERVICE MANAGER 10:59 AM CLIENT SERVICE MANAGER Ian Kendrick MD LAB - URINE ORDERABLES Performing Organization Address City/[facility]/ZIP Code Phon e Number [facility] [address] [place] [address] Hepatitis C antibody (07/07/2013 10:57 AM CLIENT SERVICE MANAGER) [facility] gist Method Time Signature Hepatitis C Negative NEG [facility] Antibody MICROBIOLOGY Specimen Anatomical Collection Method Collection Time Receive d Time (Source) Location / / Volume Laterality Blood specimen 07/07/2013 10:57 4 (specimen) AM CLIENT SERVICE MANAGER 10:58 AM CLIENT SERVICE MANAGER Ian Kendrick MD LAB - BLOOD ORDERABLES Performing Organization Address City/State/ZIP Code Phon e Number [address] [address] [place] [facility] Prostate spec antigen screen (07/07/2013 10:57 AM CLIENT SERVICE MANAGER) athologist Signature PSA 0.45 0 - 4 ug/L [facility] Specimen Anatomical Collection Method Collection Time Receive d Time (Source) Location / / Volume Laterality Blood specimen 07/07/2013 10:57 4 (specimen) AM CLIENT SERVICE MANAGER 10:58 AM CLIENT SERVICE MANAGER Ian Kendrick MD LAB - BLOOD ORDERABLES Performing Organization Address City/[facility]/ZIP Code Phon e Number [facility] [address], [place] [address] [facility] [address], [place] [address] Sex hormone binding globulin (07/07/2013 10:57 AM CLIENT SERVICE MANAGER) P athologist Signature Sex Hormone 18 [facility] Comment: Reference range: 11 to 80 Unit: nmol/L (Note) REFERENCE INTERVAL: Sex Hormone Binding Globulin Access complete set of age- and/or gende r-specific reference intervals for this test in the [facility] Test Directory ([facility]). Performed by [facility], [address] [place] [id number] [email or web address], Nish Knight MD, L ab. Director Specimen Anatomical Collection Method Collection Time Receive d Time (Source) Location / / Volume Laterality Blood specimen 07/07/2013 10:57 4 (specimen) AM CLIENT SERVICE MANAGER 10:58 AM CLIENT SERVICE MANAGER Ian Kendrick MD LAB - BLOOD ORDERABLES Performing Organization Address City/State/ZIP Code Phon e Number [place] [address] [address] [place] [id number] (ABNORMAL) Testosterone total (07/07/2013 10:57 AM CLIENT SERVICE MANAGER) [facility] Method Time Signature Testosterone 181 (L) 240 - 950 [facility] Total ng/dL [facility] Specimen Anatomical Collection Method Collection Time Receive d Time (Source) Location / / Volume Laterality Blood specimen 07/07/2013 10:57 4 (specimen) AM CLIENT SERVICE MANAGER 10:58 AM CLIENT SERVICE MANAGER Ian Kendrick MD LAB - BLOOD ORDERABLES Performing Organization Address City/[facility]/ZIP Code Phon e Number [address] [address] [facility] (ABNORMAL) Comprehensive metabolic panel (07/07/2013 10:57 AM CLIENT SERVICE MANAGER) P athologist Signature Sodium 139 133 - 144 [place] mmol/L [facility] Potassium 3.8 3.4 - 5.3 [place] mmol/L [facility] Chloride 101 94 - 109 [place] mmol/L [facility] Carbon Dioxide 26 20 - 32 [place] mmol/L [facility] Anion Gap 12 6 - 17 [place] mmol/L [facility] Glucose 109 (H) 60 - 99 [place] mg/dL [facility] Comment: Fasting specimen Urea Nitrogen 15 7 - 30 mg/dL [place] [facility] Creatinine 0.94 0.66 - 1.25 mg/dL [place] [facility] GFR Estimate 83 >60 mL/min/1.7m2 [place] C [facility] GFR Estimate If Black >90 >60 mL/min/1.7m2 F [facility] Calcium 9.6 8.5 - 10.4 mg/dL [place] [facility] Bilirubin Total 1.3 0.2 - 1.3 mg/dL [facility] Albumin 4.0 3.3 - 4.9 g/dL [facility] Comment: Reference range changed on 02/22. Protein Total 7.4 6.8 - 8.8 g/dL [place] [facility] Comment: As of 07, reference range reflects plasma specimen type. Alkaline Phosphatase 91 40 - 150 U/L [facility] ALT 37 0 - 70 U/L [facility] EA MARYELLEN AST 28 0 - 45 U/L [facility] EA MARYELLEN Specimen Anatomical Collection Method Collection Time Receive d Time (Source) Location / / Volume Laterality Blood specimen 07/07/2013 10:57 4 (specimen) AM CLIENT SERVICE MANAGER 10:58 AM CLIENT SERVICE MANAGER Ian Kendrick MD LAB - BLOOD ORDERABLES Performing Organization Address City/State/[facility] Code Phon e Number [facility] [address] [place] [address] (ABNORMAL) Lipid panel reflex to direct LDL (07/07/2013 10:57 AM CLIENT SERVICE MANAGER) P athologist Signature Cholesterol 220 (H) 0 - 200 [place] mg/dL [facility] Comment: LDL Cholesterol is the primary guide to therapy. The NCEP recommends further evaluation of: patients with cholesterol greater than 200 mg/dL if additional risk facto rs are present, cholesterol greater than 240 mg/dL, triglycerides greater than 1 50 mg/dL, or HDL less than 40 mg/dL. Triglycerides 228 (H) 0 - 150 mg/dL [facility] HDL Cholesterol 45 40 - 110 mg/dL [facility] LDL Cholesterol Calculated 129 0 - 129 mg/dL [facility] Comment: LDL Cholesterol is the primary guide to therapy: LDL-cholesterol goal in high risk patients is <100 mg/dL and in very high risk patients is <70 mg/dL. VLDL-Cholesterol 46 (H) 0 - 30 mg/dL [facility] Cholesterol/HDL Ratio 4.9 0.0 - 5.0 [facility] Specimen Anatomical Collection Method Collection Time Receive d Time (Source) Location / / Volume Laterality Blood specimen 07/07/2013 10:57 4 (specimen) AM CLIENT SERVICE MANAGER 10:58 AM CLIENT SERVICE MANAGER Ian Kendrick MD LAB - BLOOD ORDERABLES Performing Organization Address City/State/ZIP Code Phon e Number [facility] [address] [place] [address] CBC with platelets (07/07/2013 10:57 AM CLIENT SERVICE MANAGER) P athologist Signature WBC 7.0 4.0 - 11.0 [place] 10e9/L [facility] RBC Count 4.80 4.4 - 5.9 [place] 10e12/L [facility] Hemoglobin 15.0 13.3 - [place] 17.7 g/dL [facility] Hematocrit 43.5 40.0 - [place] 53.0 % [facility] MCV 91 78 - 100 [place] fl [facility] MCH 31.3 26.5 - [place] 33.0 pg [facility] MCHC 34.5 31.5 - [place] 36.5 g/dL [facility] RDW 12.9 10.0 - [place] 15.0 % [facility] Platelet Count 164 150 - 450 [place] 10e9/L [facility] Specimen Anatomical Collection Method Collection Time Receive d Time (Source) Location / / Volume Laterality Blood specimen 07/07/2013 10:57 4 (specimen) AM CLIENT SERVICE MANAGER 10:58 AM CLIENT SERVICE MANAGER Ian Kendrick MD LAB - BLOOD ORDERABLES Performing Organization Address City/State/ZIP Code Phon e Number [facility] [address] [place] [address] documented in this encounter Visit Diagnoses Diagnosis Routine general medical examination at a health care facility - Primary Need for prophylactic vaccination with c ombined bflnsbmnic-jadajpp-iygkcgaod (DTP) vaccine Mild persistent asthma Unspecified asthma Erectile dysfunction Impotence of organic origin ULCERATIVE COLITIS NOS Ulcerative colitis, unspecified Edema leg Edema Lateral epicondylitis Lateral epicondylitis of elbow Lichen planus Insomnia Insomnia, unspecified Low libido Gross hematuria Elevated blood pressure reading without diagnosis of hypertension Cervical radiculopathy Brachial neuritis or radiculitis nos Special screening for malignant neoplasm of prostate Need for hepatitis C screening test Special screening examination for other specified viral diseases Hyperlipidemia LDL goal < 130 Other and unspecified hyperlipidemia documented in this encounter Care Teams Oil Truck Driver Relationship Specialty Start Date End Date Ian Kendrick MD PCP - General 11/19/07 02/21/14 [facility] [address] [place] [address] documented as of this encounter
--- OUTSIDE RECORDS SUMMARY | 2022-05-15 22:37 | XMS_ITS | Encounter Summary ---
:1955 Author Organization [place] Address [address] [place] [address] Care Team Providers Name Role Phone Ian Kendrick MD Primary Care Provider [phone] Encounter Details Date Type Department Care Team Description 08/04/2013 Hospital Encounter [facility] MD Angel Luis examination, [address] [facility] unspecified [place], [place] ORTHOPEDICS [address] [phone] [address] [place] [address] Social History Tobacco Use Types Packs/Day Years Used Date Smoking Tobacco: Former Cigarettes 2 25 Quit : 08/04/2006 Smokeless Tobacco: Never Comments: 2004 Alcohol Use Standard Drinks/Week Comments Yes 0 (1 standard drink = 0.6 oz pure alcoho l) 4 BEERS A WEEK Alcohol Habits Answer Date Recorded How often do you have a drink containing 4 or more times a w rampart 05/25/2021 alcohol? How many drinks containing alcohol [...] you attend religion or Patient refused 2020 moravian services? Do [...] therapeutic with mouth daily minerals (MULTI-VITAMIN) TABS Cum[place]-3 Fatty Acids Take 1 g by mouth [...] planus zolpidem (AMBIEN CR) Take 1 tablet by 30 tablet 0 1 08/16/2013 12.5 MG CR mouth nightly as tabletIndications: needed for sleep. 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 documented in this encounter Results Methicillin Resistant Staph Aureus PCR (08/04/2013 2:15 PM CAN CLOSING MACHINE OPERATOR) Component Value Ref Test Analysis Performed At [facility] Range Method Time Signature Specimen Nares [facility] LAB Methicillin Negative NEG [facility] Resist/Sens S. MRSA Negative: SA Negative ? ?MRSA and Staphylococcus aureus target DNA not MICROBIOLOGY aureus PCR detected, presumed negative for MRSA and SA colonization or the number of bacteria present may be below the limit of detection for th e assay. FDA approved assay performed using [employer] GeneXpert(R) real-ti me PCR. Specimen Anatomical Collection Method Collection Time Receive d Time (Source) Location / / Volume Laterality 08/04/2013 2:15 PM 4 2:20 CAN CLOSING MACHINE OPERATOR PM CAN CLOSING MACHINE OPERATOR Horacio Geller MD LAB - MICRO GENERAL ORDERABL ES Performing Organization Address City/State/ZIP Code Phon e Number [id number] [place] [address] LAB [facility] MICROBIOLOGY documented in this encounter Visit Diagnoses Diagnosis Preoperative examination, unspecified documented in this encounter Care Teams Process Safety Engineering Technologist Relationship Specialty Start Date End Date Ian Kendrick MD PCP - General 11/19/07 02/21/14 [facility] [address] [place] [address] documented as of this encounter
--- OUTSIDE RECORDS SUMMARY | 2022-05-15 22:37 | XMS_ITS | Encounter Summary ---
:1955 Author Organization [employer] Address [address] [place] [address] Care Team Providers Name Role Phone Ian Kendrick MD Primary Care Provider [phone] Reason for Visit Reason Onset Date Comments Other 07/19/2013 testosterone questio ns Encounter Details Date Type Department Care Team Description 07/19/2013 Telephone [facility] Ian Kendrick Other (testosterone Clinic [place] MD Jeremiah questions) [address] [place], [place] [address] [facility] [address] [facility] [phone] [place] [address] (Wo rk) Social History Tobacco [...] you attend denominational or Patient refused 2020 gnosticist services? Do [...] Notes Telephone Encounter - Irma Dunaway - 07/20/2013 10:22 AM CST Patient scheduled future appt. Irma Dunaway Planograph Operator PUMPING STATION HELPER Telephone Encounter - Ian Kendrick MD - 07/20/2013 10:09 AM GAS PUMPING STATION HELPER Yes, he does need an appointment prior to starting testosterone replacement therapy. Please have himschedule an appointment at his convenience. PUMPING STATION HELPER Telephone Encounter - Esthela Merritt, RN - 07/20/2013 9:48 AM CST Pt is interested in starting Testerone. Does he need appointment to discuss before starting? Please advise? Esthela Merritt, RN PUMPING STATION HELPER Telephone Encounter - Jessica Lee - 07/19/2013 2:30 PM CST Pt has questions regarding testosterone shot he got. Please call at [phone]. PUMPING STATION HELPER documented in this encounter Plan of Treatment Upcoming Encounters Date Type Specialty Care Team Description 05/20/2022 Lab Lab documented as of this encounter Visit Diagnoses Not on filedocumented in this encounter Care Teams Equipment Maintenance Tech Relationship Specialty Start Date End Date Ian Kendrick MD PCP - General 11/19/07 02/21/14 [facility] [address] [place] [address] documented as of this encounter
--- OUTSIDE RECORDS SUMMARY | 2022-05-15 22:37 | XMS_ITS | Encounter Summary ---
:1955 Author Organization [place] Address [facility] [address] Care Team Providers Name Role Phone Ian Kendrick MD Primary Care Provider [phone] Reason for Visit Reason Onset Date Comments Patient/info Update 01/08/2013 Side effects to medi cation Encounter Details Date Type Department Care Team Description 01/08/2013 Telephone [facility] Brenda Wilson Patient/info Update [facility] [address] [facility] (Side effect s to [facility] medication) [address] [id number] [address] [place], [place] (Work) [address] Social History Tobacco Use [...] you attend sabianism or Patient refused 2020 cheondoism services? Do [...] this encounter Miscellaneous Notes Telephone Encounter - Dileep Kendrick MD - 01/11/2013 12:29 PM CDT Spoke with patient, reviewed symptoms - he has improved from significantly visit last week, much more able to move freely, not having pain when he is up and moving, still painful when lying down. Leg swelling has resolved - he has been weaning himself off of prednisone. Still taking Percocet intermittently for pain control. He has done some lifting and turning at home without difficulty - OK for trial return to work tomorrow. If symptoms recur, we may need to proceed with advanced imaging. He will continue to keep us updated on his condition, and will call with any worsening symptoms. Dileep Kendrick MD, CAQSM (01/11/2013 12:36 PM) Telephone Encounter - Jasmine Das - 01/11/2013 10:33 AM CDT Pt calls to state that when he is laying down flat on his back his pain is severe but once he is up and moving around his pain is fine. If he turns to the right, his pain is still present. He would like to go back to work tomorrow but does not want to push it. He would like to know Dr. Kendrick's recommendations. He states he is still taking one prednisone daily and has 1 pill left. Jasmine Das ATC Telephone Encounter - Dileep Kendrick MD - 01/08/2013 3:[address]cur with Dr. Sethi. If he continues to have symptoms that progress, he needs to be evaluated immediately. Dileep Kendrick MD, CAQSM (01/08/2013 3:16 PM) Telephone Encounter - Brenda Wilson - 01/08/2013 2:56 PM CDT Patient reports he is continuing to have swelling at bilateral feet, and feels it is a side effect of Prednisone. He also reports redness of skin and sweating. Denies chest pain, SOB or decreased sensation at the feet. Family history (mother) of adverse reaction to Prednisone. After consulting with Dr. Sethi, patient is encouraged to elevated bilaterally above the heart, decrease sodium intake, and monitor symptoms. Patient declines emergent evaluation but is encouraged to seek immediate evaluation should his symptoms progress. Patient is also requesting a call from Dr. Kendrick Friday to discuss plan of care, as he intends to d/c Prednisone. Brenda Wilson, ATC, ATR documented in this encounter Plan of Treatment Upcoming Encounters Date Type Specialty Care Team Description 05/20/2022 Lab Lab documented as of this encounter Visit Diagnoses Not on filedocumented in this encounter Care Teams Gastroenterology Physician Relationship Specialty Start Date End Date Ian Kendrick MD PCP - General 11/19/07 02/21/14 [facility] [address] [place] [address] documented as of this encounter
--- OUTSIDE RECORDS SUMMARY | 2022-05-15 22:37 | XMS_ITS | Encounter Summary ---
:1955 Author Organization [place] Address [address] [place] [address] Care Team Providers Name Role Phone Ian Kendrick MD Primary Care Provider [phone] Reason for Visit Reason Comments Dizziness URI cough X2 weeks Encounter Details Date Type Department Care Team Description 09/28/2012 Office Visit [facility] Ian Kendrick BPPV ( benign paroxysmal positional vertigo) (Primary Dx); Clinic Chhaya Daniels MD Mild persistent asthma; [address] [facility] Acute upper respiratory infe ctions of unspecified site [place] CLINIC [address] [address] [facility] [phone] [place] [address] (Wo rk) Social History Tobacco [...] you attend faith or Patient refused 2020 temple services? Do [...] Reading Time Taken Comments Blood Pressure 130/90 09/28/2012 2:47 PM CDT Pulse 75 09/28/2012 2:47 PM CDT Temperature 36.9 ??C (98.4 ??F) 09/28/2012 2:47 PM CDT Respiratory Rate - - Oxygen Saturation 96% 09/28/2012 2:47 PM CDT Inhaled Oxygen Concentration - - Weight 109.3 kg (241 lb) 09/28/2012 2:47 PM CDT Height 180.8 cm (5' 11.2) 09/28/2012 2:47 PM CDT Body Mass Index 33.42 09/28/2012 2:47 PM CDT documented in this encounter Progress Notes Ian Kendrick MD - 09/28/2012 8:12 AM CDT SUBJECTIVE: Virgil Christine is a 56 year old male who presents to clinic today for the following health issues: Dizziness ?? Duration: 09/13/12 till now ?? Description Feeling faint: no Feeling like the surroundings are moving: YES Loss of consciousness or falls: no ?? Intensity: severe ?? Accompanying signs and symptoms: Nausea/vomitting: YES Palpitations: YES Weakness in arms or legs: YES Vision or speech changes: YES- vision Ringing in ears (Tinnitus): YES Hearing loss related to dizziness: no Other (fevers/chills/sweating/dyspnea): YES ?? History (similar episodes/head trauma/previous evaluation/recent bleeding): Has had similar episode in the distant past. ?? Precipitating or alleviating factors (new meds/chemicals): None Worse with activity/head movement: YES. Provokes a few seconds of intense dizziness, then slowly fades. ?? Therapies tried and outcome: exercise, help a little, OTC med. RESPIRATORY SYMPTOMS ?? Duration: 2 weeks ?? Description nasal congestion, rhinorrhea, sore throat, cough, headache, fatigue/malaise and hoarse voice ?? Severity: mild ?? Accompanying signs and symptoms: None ?? History (predisposing factors): asthma ?? Precipitating or alleviating factors: None ?? Therapies tried and outcome: oral decongestant acetaminophen Problems list, allergies, social and family history, and past medical history, are all reviewed and updated in [facility]. Current Outpatient Prescriptions Medication Sig ??? albuterol (PROAIR HFA) 108 (90 BASE) MCG/ACT inhaler Inhale 1-2 puffs into the lungs every 4 hours as needed. ??? ipratropium (ATROVENT HFA) 17 MCG/ACT inhaler Inhale 2 puffs into the lungs 4 times daily. ??? beclomethasone (QVAR) 80 MCG/ACT Inhaler Inhale 1 puff into the lungs 2 times daily. ??? Furosemide (LASIX) 20 MG tablet Take 0.5-1 tablets by mouth. Take as needed for leg swelling. ??? loperamide (IMODIUM) 2 MG capsule Take 3-4 capsules by mouth 3 times daily. ??? HYDROcodone-acetaminophen (VICODIN) 5-500 MG per tablet Take 1 tablet by mouth every 6 hours as needed for pain. ??? sildenafil (VIAGRA) 50 MG tablet Take 0.5-1 tablets by mouth daily as needed for erectile dysfunction. ??? triamcinolone (KENALOG) 0.1 % cream Apply topically 2 times daily. ??? zolpidem (AMBIEN CR) 12.5 MG CR tablet Take 1 tablet by mouth nightly as needed for sleep. ??? ORDER FOR DME RINA hose or support stocking, knee high SZ M4 30-40 mmHg OBJECTIVE: BP 130/90 Pulse 75 Temp(Src) 98.4 ??F (36.9 ??C) (Oral) Ht 5' 11.2 (1.808 m) Wt 241 lb (109.317 kg) BMI 33.42 kg/m2 SpO2 96% GENERAL APPEARANCE: healthy, alert and no distress HEAD: atraumatic. normocephalic. no areas of increased tenderness. scalp normal. EYES: EOMI, fundi benign- PERRL HENT: ear canals and TM's normal and nose and mouth without ulcers or lesions NECK: no adenopathy, no asymmetry, masses, or scars and thyroid normal to palpation RESP: lungs clear to auscultation - no rales, rhonchi or wheezes CV: regular rates and rhythm, normal S1 S2, no S3 or S4 and no murmur, click or rub - NEURO: Normal strength and tone, sensory exam grossly normal, mentation intact and speech normal. cranial nerves II-XII intact. PSYCH: mentation appears normal. and affect normal/bright Assessment/Plan: 386.11 BPPV (benign paroxysmal positional vertigo) (primary encounter diagnosis) Comment: Plan: Discussed the natural history of this disease and likelihood that it may wax and wane over thenext several weeks. Handout given with instructions for BPV repositioning exercises. He is to followup if his symptoms persist past a few weeks, worsen, or he develops any neurologic-type symptoms. 493.90 Mild persistent asthma Comment: Plan: ASTHMA CONTROL TEST Mild acute asthma exacerbation secondary to URI. Does not warrant oral steroids at this time. continue inhaled steroids and albuterol prn. Patient will call or return to clinic prn if these symptoms worsen or fail to improve as anticipated. 465.9 Acute upper respiratory infections of unspecified site Comment: Plan: Likely viral process. Recommended specific symptomatic cares. Patient will call or return to clinic prn if these symptoms worsen or fail to improve as anticipated. documented in this encounter Nursing Notes 09/28/2012 2:30 PM CDT >> LENNIE QUARLES Mon Sep 28, 2012 2:50 PM Patient presents with: Dizziness Initial BP 130/90 Pulse 75 Temp(Src) 98.4 ??F (36.9 ??C) (Oral) Ht 5' 11.2 (1.808 m) Wt 241lb (109.317 kg) BMI 33.42 kg/m2 SpO2 96% Estimated Body mass index is 33.42 kg/(m^2) as calculated from the following: Height as of this encounter: 5' 11.2(1.808 m). Weight as of this encounter: 241 lb(109.317 kg).. BP completed using cuff size: large Lennei Quarles MA documented in this encounter Plan of Treatment Upcoming Encounters Date Type Specialty Care Team Description 05/20/2022 Lab Lab documented as of this encounter Visit Diagnoses Diagnosis BPPV (benign paroxysmal positional verti go) - Primary Benign paroxysmal positional vertigo Mild persistent asthma Unspecified asthma Acute upper respiratory infections of un specified site documented in this encounter Care Teams International Manager Relationship Specialty Start Date End Date Ian Kendrick MD PCP - General 11/19/07 02/21/14 [facility] [address] [place] [address] documented as of this encounter
--- OUTSIDE RECORDS SUMMARY | 2022-05-15 22:37 | XMS_ITS | Encounter Summary ---
:1955 Author Organization [place] Address [address] [place] [address] Care Team Providers Name Role Phone Ian Kendrick MD Primary Care Provider [phone] Reason for Visit Reason Onset Date Comments Other 02/11/2013 over heated Encounter Details Date Type Department Care Team Description 02/11/2013 Telephone [facility] Ian Kendrick Other (over heated) [facility] MD Jeremiah [address] [place] [address] [place] [address] [facility] [phone] [place] [address] (Wo rk) Social History Tobacco [...] you attend baptist or Patient refused 2020 rastafarian services? 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 I drank a lot of water and wore damp bandana's but really did not pee or sweat much Pt states my head is killing me and I just do not feel good I am very tired and weak feeing Pt states he is now in his truck with AC and driving home. Pt denies chest pain or SOB at this time. He is talking in complete sentence and coherently. Pt advised he should seek medical care. Needs to cool body, take tepid shower upon arriving home. Drink Gatorade 2-3 bottles or Pedialyte, and stay hydrated. NO alcohol, caffiene or carbonated beverages. Eat light meal. NO strenuous activity tonight. Pt should rest and take it easy. Stay in AC or use fan. Pt should report to ED with any worsening headache, any sign of chest pain or SOB. If pt needs to work in heat tomorrow needs to hydrate with Gatorade and water, avoid caffienated beverages. Eat light meals, and take frequent breaks to cool down. Pt expressed understanding and acceptance of the plan. Pt had no further questions at this time. Advised can call back to clinic at any time with concerns. Message handled by Nurse Triage with [facility] - provider name: Isabel Merritt RN documented in this encounter Plan of Treatment Upcoming Encounters Date Type Specialty Care Team Description 05/20/2022 Lab Lab documented as of this encounter Visit Diagnoses Not on filedocumented in this encounter Care Teams Warehouse Hand Relationship Specialty Start Date End Date Ian Kendrick MD PCP - General 11/19/07 02/21/14 [facility] [address] [place] [address] documented as of this encounter
--- OUTSIDE RECORDS SUMMARY | 2022-05-15 22:37 | XMS_ITS | Encounter Summary ---
:1955 Author Organization [place] Address [address] [place] [address] Care Team Providers Name Role Phone Ian Kendrick MD Primary Care Provider [phone] Reason for Visit Reason Onset Date Comments Refill Request 03/31/2013 Encounter Details Date Type Department Care Team Description 03/31/2013 Refill [facility] Ian Kendrick, Refill Request Chhaya VILLASEÑOR [address] [place] [address] [address] [facility] [phone] [facility] [address] [address] (Wo rk) Social History Tobacco Use [...] you attend yazidi or Patient refused 2020 hoahaoism services? Do [...] Miscellaneous Notes Telephone Encounter - Esthela Merritt - 03/31/2013 2:48 PM CDT Per RN refill protocol refilled Imodium X 6 months. JENNIFER 09/28/12 Last filled for 30 day supply 03/27/13 Esthela Merritt RN documented in this encounter Plan of Treatment Upcoming Encounters Date Type Specialty Care Team Description 05/20/2022 Lab Lab documented as of this encounter Visit Diagnoses Diagnosis ULCERATIVE COLITIS NOS - Primary Ulcerative colitis, unspecified documented in this encounter Care Teams Electron Beam Welder Relationship Specialty Start Date End Date Ian Kendrick MD PCP - General 11/19/07 02/21/14 [facility] [address] [place] [address] documented as of this encounter
--- OUTSIDE RECORDS SUMMARY | 2022-05-15 22:37 | XMS_ITS | Encounter Summary ---
:1955 Author Organization [facility] Address [address] [place] [address]. [place] [address] Care Team Providers Name Role Phone Ian Kendrick MD Primary Care Provider [phone] Reason for Referral - Closed Specialty Diagnoses / Procedures Referred By Contact Refer red To Contact Diagnoses Back pain Janeth Esparza MD [facility] [address] [place] [address] Referral ID Status Reason Start Date Expiration Date Visits Requ ested Visits Authorized [id number] Closed 01/06/2013 07/05/2013 1 1 Reason for Visit Reason Comments Back Pain Encounter Details Date Type Department Care Team Description 01/06/2013 Emergency [facility] Janeth Esparza Ba ck pain (Primary [facility] Emergency Dep t MD Dx) [address] [facility] [place] [place] [place] [address] [place] [phone] [address] [place] [address] (Wo rk) Social History Tobacco Use Types Packs/Day Years Used Date Smoking Tobacco: Former Cigarettes Smokeless Tobacco: Never Comments: 2004 Alcohol Use Standard Drinks/Week Comments Yes 0 (1 standard drink = 0.6 oz pure alcoho l) 4 BEERS A WEEK Alcohol Habits Answer Date Recorded How often do you have a drink containing 4 or more times a w [place]-cree 05/25/2021 alcohol? How many drinks containing alcohol [...] you attend bahai or Patient refused 2020 tenriism services? Do [...] Reading Time Taken Comments Blood Pressure 147/99 01/06/2013 4:02 AM CDT Pulse 97 01/06/2013 12:40 AM CDT Temperature 37.3 ??C (99.2 ??F) 01/06/2013 12:40 AM CDT Respiratory Rate 20 01/06/2013 4:02 AM CDT Oxygen Saturation 96% 01/06/2013 4:02 AM CDT Inhaled Oxygen Concentration - - Weight 108.9 kg (240 lb) 01/06/2013 12:40 AM CDT Height 182.9 cm (6') 01/06/2013 12:40 AM CDT Body Mass Index 32.55 01/06/2013 12:40 AM CDT documented in this encounter Discharge Instructions Discharge InstructionsJaneth Esparza MD - 01/06/2013 3:54 AM CDT Discharge Instructions Back Pain You were seen today for back pain. Back pain can have many causes, but most will get better without surgery or other specific treatment. Sometimes there is a herniated (???slipped?? ) disc. We don???t usually do MRI scans to look for these right away, since most herniated discs will get better on their own with time. Today, we did not find any evidence that your back pain was caused by a serious condition, such as an infection, fracture, or tumor. However, sometimes symptoms develop over time and cannot be found during an emergency visit, so it is very important that you follow up with your primarydoctor. Return to the Emergency Department if: You develop a fever with your back pain. You have weakness or change in sensation in one or both legs. You lose control of your bowels or bladder, or can???t empty your bladder. Your pain gets much worse. Follow-up with your doctor: Unless your pain has completely gone away, please make an appointment with your doctor within one week. You may need further management of your back pain, such as more pain medication, imaging such asan X-ray or MRI, or physical therapy. What can I do to help myself? Remain active -- People are often afraid that they will hurt their back further or delay recovery by remaining active, but this is one of the best things you can do for your back. In fact, prolonged bed rest is not recommended. Studies have shown that people with low back pain recover faster when they remain active. Movement helps to bring blood flow to the muscles and relieve muscle spasms as well as preventing loss of muscle strength. Heat -- Using a heating pad can help with low back pain during the first few weeks. Do not sleep with a heating pad, as you can be burned. Pain medications -- Take a pain medication such as, acetaminophen (Tylenol??), ibuprofen (Advil??, Nuprin ??) or naproxen (Aleve??). If you have been given a narcotic (such as codeine, hydrocodone, oroxycodone) or a muscle relaxant (such as Flexeril ?? or Soma ??), do not drive for four hours after you have taken it. If the narcotic contains acetaminophen (Tylenol), do not take Tylenol with it. Allnarcotics will cause constipation, so eat a high fiber diet. Remember that you can always come back to the Emergency Department if you are not able to see your regular doctor in the amount of time listed above, if you get any new symptoms, or if there is anything that worries you. documented in this encounter Medications at Time of Discharge Medication Sig Dispensed Refills Start Date End Date albuterol (PROAIR HFA) Inhale 1-2 puffs 3 Inhaler 0 013 03/04/2014 108 (90 BASE) MCG/ACT into the lungs inhalerIndications: Mild every 4 hours as persistent asthma needed. beclomethasone (QVAR) 80 Inhale 1 puff into 3 Inhaler 2 08/201207/07/2013 MCG/ACT the lungs 2 times InhalerIndications: Mild daily. persistent asthma diazepam (VALIUM) 5 MG Take 1 tablet by 12 tablet 0 013 08/04/2013 tablet mouth every 6 hours as needed for anxiety. Furosemide (LASIX) 20 MG Take 0.5-1 tablets 90 tablet 0 07/07/2013 tabletIndications: Edema by mouth. Take as leg needed for leg swelling. HYDROcodone-acetaminophe Take 1 tablet by 30 tablet 0 10/2807/07/2013 n (VICODIN) 5-500 MG per mouth every 6 hours tabletIndications: as needed for pain. Lateral epicondylitis ipratropium (ATROVENT Inhale 2 puffs into 3 Inhaler 2 06/2507/07/2013 HFA) 17 MCG/ACT the lungs 4 times inhalerIndications: Mild daily. persistent asthma loperamide (IMODIUM) 2 Take 3-4 capsules 480 capsule 3 04/1601/29/2013 MG capsuleIndications: by mouth 3 times Ulcerative colitis, daily. 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 predniSONE (DELTASONE) Take 2 tablets by 10 tablet 0 201201/09/2013 20 MG tablet mouth daily for 5 days. sildenafil (VIAGRA) 50 Take 0.5-1 tablets 6 tablet 12 08/0907/07/2013 MG tabletIndications: by mouth daily as Erectile dysfunction needed for erectile dysfunction. triamcinolone (KENALOG) Apply topically 2 30 g 1 04/3007/07/2013 0.1 % creamIndications: times daily. Lichen planus zolpidem (AMBIEN CR) Take 1 tablet by 30 tablet 0 1 08/16/2013 12.5 MG CR mouth nightly as tabletIndications: needed for sleep. Insomnia documented as of this encounter ED Notes Emmy Harman RN - 01/06/2013 3:45 AM CDT Up to restroom. Gait steady. Janeth Esparza MD - 01/06/2013 12:53 AM CDT History Chief Complaint: Back Pain The history is provided by the patient. Virgil Christine is a 57 year old male with a history of back pain, who presents to the emergency department today with back pain. The patient reports that his back went out tonight while he was trying to go to bed. Here in the ED, the patient reports excruciating pain in his lower back that radiates down his rightleg. The patient reports that he has taken a Vicodin and Motrin tonight for pain. The patient statesthat he feels hot and flushing to his face. The patient denies inability to ambulate but reports that it gives him discomfort. The patient denies any bowel or bladder incontinence. The patient denies any numbness, tingling, neck pain, headache, dizziness, light-headedness, rashes, problems with urination, abnormal bowel movements, abdominal pain, or chest pain. He further denies any chills, nausea, vomiting, or shortness of breath. Allergies: No Known Allergies Medications: Proair Atrovent Qvar Lasix Imodium Vicodin Viagra Kenalog Ambien Past Medical History: Hyperlipidemia Asthma Edema Ulcerative Colitis Venous thrombosis Past Surgical History: Colostomy Nicola filter Family / Social History: Diabetes Social History: The patient is a former smoker The patient uses alcohol Review of Systems Constitutional: Negative for appetite change. Respiratory: Negative for shortness of breath. Cardiovascular: Negative for chest pain. Gastrointestinal: Negative for nausea, vomiting, abdominal pain, constipation and blood in stool. Genitourinary: Negative for difficulty urinating. Musculoskeletal: Positive for back pain. Skin: Negative for rash. Neurological: Negative for dizziness, numbness and headaches. All other systems reviewed and are negative. Physical Exam First Vitals: BP: 148/97 mmHg Pulse: 97 Temp: 99.2 ??F (37.3 ??C) Resp: 22 Height: 182.9 cm (6') Weight: 108.863 kg (240 lb) SpO2: 98 % Physical Exam Constitutional: He is cooperative. Appear uncomfortable and will intermittently cry in pain with movement HENT: Right Ear: External ear normal. Left Ear: External ear normal. Nose: Nose normal. Eyes: Conjunctivae normal, EOM and lids are normal. Cardiovascular: Intact distal pulses. Pulmonary/Chest: Effort normal. Musculoskeletal: Normal range of motion. Lumbar back: He exhibits pain. He exhibits no bony tenderness and no swelling. No pain to palpation of back. Neurological: He is alert. He has normal strength and normal reflexes. No sensory deficit. Gait normal. Normal heel and toe walk Skin: Skin is warm and dry. No rash noted. Psychiatric: He has a normal mood and affect. Emergency Department Course Interventions: Valium 5mg IV X2 Dilaudid 1.5 mg IV Toradol 30 mg IV Solumedrol 125 mg IV Emergency Department Course: I reviewed the patient's old medical records and performed a thorough exam of the patient. IV inserted. The patient was placed on continuous blood pressure monitoring and pulse oximetry. Rechecked the patient, findings and plan explained to the patient . Patient discharged home, status improved, with instructions regarding supportive care, medications, and reasons to return as well as the importance of close follow-up was reviewed. Impression & Plan Medical Decision Making: This patient has an history of back pain who presents with increasing pain in his right buttock. Thepain is worse with movement although he is able to ambulate. He denies any bowel or bladder dysfunction, fever, chills, or any weakness or numbness in the legs. The patient did receive multiple pain med ications, muscle relaxers, and solumedrol but only had minimal improvement of the pain. I will discuss options of treatment with him including admission for pain control and further evaluation versus outpatient treatment. The patient would prefer to be discharged with medications for pain management and follow up with his usual sports medicine clinic. The patient may need a steroid injection to help with his symptoms. The patient decided that he will go home. The patent is not to drive on these medications He should follow up with Dr. White who he has seen before at the orthopedic clinic. He should return with any increasing pain, weakness, numbness, bladder or bowel dysfunction. Assessment 1. Right back pain 2. Sciatica I, Magnoliachetan Simms, am serving as a scribe at 1:00 AM on 01/06/2013 to document services personally performed by Dr. Esparza, based on my observations and the provider's statements to me. Marc Mendez 01/06/2013 [facility] EM[facility]Y [facility] Janeth Esparza MD 01/07/13 0637 Macey Merritt RN - 01/06/2013 12:45 AM CDT IN TRIAGE airway,breathing and circulation intact, without need for intervention . Alert and interacting appropriately for age and situation. Back ache 20 years. This episode 1 week seeing chiropractor. Lower back non radiating. Pt having spasms drove himself here. documented in this encounter Plan of Treatment Upcoming Encounters Date Type Specialty Care Team Description 05/20/2022 Lab Lab Scheduled Referrals Name Type Priority Associated Diagnoses [facility] Routine Back pain Ord ered: 01/06/2013 documented as of this encounter Visit Diagnoses Diagnosis Back pain - Primary Backache, unspecified documented in this encounter Administered Medications Inactive Administered Medications - up to 3 most recent administrations Medication Order MAR Action Action Date Dose Rate Site diazepam (VALIUM) injection 5 mg Given 01/06/2013 2:19 AM CDT 5 mg 5 mg, Intravenous, ONCE, On Fri01/06/13 at 0200, For 1 dose diazepam (VALIUM) injection 5 mg Given 01/06/2013 3:14 AM CDT 5 mg 5 mg, Intravenous, ONCE, On Fri01/06/13 at 0315, For 1 dose HYDROmorphone (PF) (DILAUDID) injection 0.5 Given 01/06/2013 3:56 AM CDT 0.5 mg mg 0.5 mg, Intravenous, EVERY 15 MIN PRN, moderate to severe pain, Starting on Fri01/06/13 at 0147, For 3 doses Given 01/06/2013 2:19 AM CDT 0.5 mg HYDROmorphone (PF) (DILAUDID) injection 1 mg Given 01/06/2013 1:12 AM CDT 1 mg 1 mg, Intravenous, ONCE, On Fri01/06/13 at 0115, For 1 dose ketorolac (TORADOL) injection 30 mg Given 01/06/2013 1:13 AM CDT 30 mg Right Arm 30 mg, Intravenous, ONCE, On Fri01/06/13 at 0115, For 1 dose methylprednisoLONE sodium succinate Given 01/06/2013 2:19 AM CDT 125 mg (Solu-MEDROL) injection 125 mg 125 mg, Intravenous, ONCE, On Fri01/06/13 at 0200, For 1 dose, Doses >125mg need to be in at least 50 mL IVPB documented in this encounter Active and Recently Administered Medications Times are shown in CDT. Scheduled Medication Order 01/04/2013 01/05/2013 01/06/2013 diazepam (VALIUM) injection 5 mg (COMPLETED) 218 (Given - Provider: Emmy Harman RN - Comment: ivp) 5 mg, Intravenous, ONCE, Fri01/06/13 at 0200, For 1 dose diazepam (VALIUM) injection 5 mg (COMPLETED) 313 (Given - Provider: Arminda Alvarez RN) 5 mg, Intravenous, ONCE, Fri01/06/13 at 0315, For 1 dose HYDROmorphone (PF) (DILAUDID) injection 1 mg (COMPLETED) 111 (Given - Provider: Clark Blue, CINDY) 1 mg, Intravenous, ONCE, 1 dose, Fri01/06/13 at 0115 ketorolac (TORADOL) injection 30 mg (COMPLETED) 112 (Given - Provider: Clark Blue RN) 30 mg, Intravenous, ONCE, Fri01/06/13 at 0115, For 1 dose methylprednisoLONE sodium succinate (Solu-MEDROL) injection 125 mg (COMPLETED) 218 (Given - Provider: Emmy Harman, CINDY - Comment: ivp) 125 mg, Intravenous, ONCE, Fri01/06/13 a t 0200, For 1 dose, Doses >125mg need to be in at least 50 mL IVPB PRN Medication Order 01/04/2013 01/05/2013 01/06/2013 HYDROmorphone (PF) (DILAUDID) injection 0.5 mg (CANCELED) 218 (Given - Provider: Emmy Harman RN)0356 (Given - Provider: Emmy Harman RN) 0.5 mg, Intravenous, EVERY 15 MIN PRN, 3 doses, Starting Fri01/06/13 at 0147, Until Fri01/06/13 at 0620, moderate to severe pain documented in this encounter Care Teams Dehydrogenation Operator Head Relationship Specialty Start Date End Date Ian Kendrick MD PCP - General 11/19/07 02/21/14 [address] [place] [address] documented as of this encounter
--- OUTSIDE RECORDS SUMMARY | 2022-05-15 22:37 | XMS_ITS | Encounter Summary ---
:1955 Author Organization [facility] Address [address] [place] [address] Care Team Providers Name Role Phone Ian Kendrick MD Primary Care Provider [phone] Froylan Louise MD Primary Care Provider Unavailable Froylan Louise MD Unavailable Unavailable Froylan Louise MD Unavailable Unavailable Reason for Visit Reason Onset Date Comments Patient Request for Note/Letter 07/09/2013 For excu sing from [employer] duty Encounter Details Date Type Department Care Team Description 07/09/[address] [facility] Ian Kendrick Request for Clinic Lottie MD Jeremiah Note/[place] ([place] [id number] [facility] [place] [address] [place] [facility] [id number] [facility] [phone] [place] [address] (Wo rk) Social History Tobacco [...] you attend tenriism or Patient refused 2020 anglican services? Do [...] Telephone Encounter - Esthela Merritt, RN - 07/09/2013 2:38 PM CST PCP is not in clinic and will not return until 07/10/13 Pt states he has worked with a couple doctors on this issue so he will contact them for this letter as he needs it today. Esthela Merritt, RN [employer] Telephone Encounter - Rebecca Eldridge - 07/09/2013 2:23 PM CST Name of caller: Virgil Relationship to patient: self Reason for call: Needs a letter faxed to Jury Commissioner , Attn: Amrita. [phone]-fax. Can't Sit in jury duty all day with his arm pain. Date of start: 07/13/2013. Jurerer # [id number] Group # 3. Needs to be done by 4pm. Today. 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
--- OUTSIDE RECORDS SUMMARY | 2022-05-15 22:37 | XMS_ITS | Encounter Summary ---
:1955 Author Organization [facility] Address [address] [place] [address] Care Team Providers Name Role Phone Ian Kendrick MD Primary Care Provider [phone] Reason for Visit Reason Onset Date Comments Dizziness 09/24/2012 Encounter Details Date Type Department Care Team Description 09/24/2012 Telephone [facility] [place] [address] [place] [address] [facility] [phone] [facility] [address] (Wo rk) Social History Tobacco [...] you attend adventism or Patient refused 2020 adventism services? Do [...] Notes Telephone Encounter - Chacha Laboy - 09/24/2012 1:26 PM CDT Pt calling in and thinks he has vertigo, asks if there is anything he can do at home., since he doesn't have any insurance. Pt said he does have mild SOB with activity and he feels forgetful Dizzy when laying down and turning head. Room feels like it is spinning, pt had and episode 2 days ago and one today. Had bilat UE numbness and tingling along with nausea Some mild diaphoresis today pt said this is due to physical activity working today Pt advised to make an appt today to r/o cardiac issues. Pt denied and said he wants to see Dr. 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 Pt will try the exercises and cancel appt if these help. Pt again advised to see pcp to r/o cardiac issues. Chacha Laboy RN. documented in this encounter Plan of Treatment Upcoming Encounters Date Type Specialty Care Team Description 05/20/2022 Lab Lab documented as of this encounter Visit Diagnoses Not on filedocumented in this encounter Care Teams Asbestos Handler Relationship Specialty Start Date End Date Ian Kendrick MD PCP - General 11/19/07 02/21/14 [facility] [address] [place] [address] documented as of this encounter
--- OUTSIDE RECORDS SUMMARY | 2022-05-15 22:37 | XMS_ITS | Encounter Summary ---
:1955 Author Organization [facility] Address [address] [place] [address] Care Team Providers Name Role Phone Ian Kendrick MD Primary Care Provider [phone] Reason for Visit Reason Onset Date Comments Medication Question 07/30/2013 Androgel question Encounter Details Date Type Department Care Team Description 07/30/2013 Telephone [facility] Ian Kendrick Medica tion Question Clinic Chhaya Daniels MD (Androgel question ) [address] [place], [place] [address] [facility] [address] [facility] [phone] [place] [address] (Wo rk) Social History Tobacco [...] you attend mormon or Patient refused 2020 denominational services? Do [...] Notes Telephone Encounter - Chacha Laboy - 07/30/2013 9:31 AM CST Pt is calling in and would like to clarify that it is 2 pumps every day of the Testosterone RN advised yes : testosterone (ANDROGEL 1.62% PUMP) 20.25 MG/ACT gel 1 Month 1 07/29/2013 -- Sig: Apply 2 pumps (40.5 mg) topically daily Apply from dispenser to clean, dry, intact skin of the upper arms and shoulders. Class: Local Print Comment: 2 pumps = 2.5 g gel = 40.5 mg testosterone Route: Topical Chacha Laboy RN. AVER documented in this encounter Plan of Treatment Upcoming Encounters Date Type Specialty Care Team Description 05/20/2022 Lab Lab documented as of this encounter Visit Diagnoses Not on filedocumented in this encounter Care Teams [employer] Consultant Relationship Specialty Start Date End Date Ian Kendrick MD PCP - General 11/19/07 02/21/14 [place] [address] [id number] [place] [address] documented as of this encounter
--- OUTSIDE RECORDS SUMMARY | 2022-05-15 22:37 | XMS_ITS | Encounter Summary ---
:1955 Author Organization [place] Address [address] [place] [address] Care Team Providers Name Role Phone Ian Kendrick MD Primary Care Provider [phone] Reason for Visit Reason Comments Pre-Op Exam Encounter Details Date Type Department Care Team Description 08/16/2013 Office Visit [facility] Ian Kendrick Preop general physical exam (Primary Dx); Clinic Chhaya Daniels MD OA (osteoarthritis) of knee; [address] [facility] Personal history of DVT (gino p vein thrombosis); [place], [place] CLINIC Elevated blood pressure reading without diagnosis of hypertension; [address] [facility] [place] Anticardiolipin antibody pos itive [phone] [place] [address] Social History Tobacco Use Types Packs/Day Years Used Date Smoking Tobacco: Former Cigarettes 2 25 Quit : 08/04/2006 Smokeless Tobacco: Never Comments: 2004 Alcohol Use Standard Drinks/Week Comments Yes 0 (1 standard drink = 0.6 oz pure alcoho l) 4 BEERS A WEEK Alcohol Habits Answer Date Recorded How often do you have a drink containing 4 or more times a w alutiiq 05/25/2021 alcohol? How many drinks containing alcohol [...] you attend caodaism or Patient refused 2020 lutheran services? Do [...] Sign Reading Time Taken Comments Blood Pressure 142/83 08/16/2013 2:18 PM ULTRASOUND TECHNICIAN Pulse 82 08/16/2013 2:18 PM ULTRASOUND TECHNICIAN Temperature 36.6 ??C (97.8 ??F) 08/16/2013 2:18 PM ULTRASOUND TECHNICIAN Respiratory Rate - - Oxygen Saturation 96% 08/16/2013 2:18 PM ULTRASOUND TECHNICIAN Inhaled Oxygen Concentration - - Weight 109.8 kg (242 lb 2 oz) 08/16/2013 2:18 PM ULTRASOUND TECHNICIAN Height 181 cm (5' 11.25) 08/16/2013 2:18 PM ULTRASOUND TECHNICIAN Body Mass Index 33.53 08/16/2013 2:18 PM ULTRASOUND TECHNICIAN documented in this encounter Progress Notes aIn Kendrick MD - 08/16/2013 2:23 PM CST [address] [address] Dept: [phone] PRE-OP EVALUATION: Today's date: 08/16/2013 Virgil Christine (: 1955) presents for pre-operative evaluation assessment as requested by Dr. Jsoe Fonseca. He requires evaluation and anesthesia risk assessment prior to undergoing surgery/procedure for treatment of right knee . Proposed procedure: ARTHROPLASTY KNEE UNICOMPARTMENT Right Other Right Knee Uni Arthroplasty Surgeon Requests Choice Anesthesia Date of Surgery/ Procedure: 08-20-13 Time of Surgery/ Procedure: 6:00am Hospital/Surgical Facility: [facility] Primary Physician: Ian Kendrick Type of Anesthesia [...] Problem List Diagnosis Date Noted ??? Health Halfway 07/16/2011 Priority: High EMERGENCY CARE PLAN Presenting Problem Signs and Symptoms Treatment Plan Questions or conerns during clinic hours I will call the clinic directly Questions or conerns outside clinic hours I will call the 24 hour nurse line at [phone] Patient needs to schedule an appointment I will call the 24 hour scheduling team at [phone] orclinic directly Same day treatment I will call the clinic first, nurse line if after hours, urgent care and expresscare if needed DX V65.8 REPLACED WITH [id number] [facility] (09/28/2012) ??? Personal history of DVT (deep [...] Surgical History Procedure Date ??? Colostomy ??? Imlay filter ??? Resection abdominal perineal Current Outpatient Prescriptions Medication Sig ??? [START ON 08/20/2013] rivaroxaban ANTICOAGULANT (XARELTO) 10 MG TABS tablet Take 1 tablet (10 mg)by mouth daily (with dinner) ??? MELATONIN PO Take 5 mg by mouth nightly as needed ??? multivitamin, therapeutic with minerals (MULTI-VITAMIN) TABS Take 1 tablet by mouth daily ??? Atlantic-3 Fatty Acids (OMEGA-3 FISH OIL PO) Take [...] cardiovascular risks for perioperative complications such as (MT, PE, VFib and 3?? AV Block): No [...] evaluation report is provided to requesting physician. ASOUND TECHNICIAN documented in this encounter Nursing Notes 08/16/2013 2:00 PM CST >> Marco Pak CMA Mon Aug 16, 2013 2:23 PM Patient presents with: Pre-Op Exam Initial BP 142/83 Pulse 82 Temp 97.8 ??F (36.6 ??C) (Oral) Ht 5' 11.25 (1.81 m) Wt 242 lb 2oz (109.827 kg) BMI 33.52 kg/m2 SpO2 96% Estimated Body mass index is 33.52 kg/(m^2) as calculated from the following: Height as of this encounter: 5' 11.25(1.81 m). Weight as of this encounter: 242 lb 2 oz(109.827 kg). BP completed using cuff size: large Marco Pak CREATIVE ENGAGEMENT DIRECTOR documented in this encounter Plan of Treatment Upcoming Encounters Date Type Specialty Care Team Description 05/20/2022 Lab Lab documented as of this encounter Procedures Procedure Name Priority Date/Time Associated Diagnosis Comme nts EKG 12-LEAD COMPLETE Routine 08/16/2013 Preop general physic al Results for this W/READ - CLINICS exam procedure are in the OA (osteoarthritis) of resul ts section. knee documented in this encounter Results EKG 12-lead complete w/read - Clinics (08/16/2013) Narrative This result has an attachment that is no t available. Ian Kendrick MD ECG ORDERABLES documented in this encounter Visit Diagnoses Diagnosis Preop general physical exam - Primary Other specified pre-operative examinatio n OA (osteoarthritis) of knee Osteoarthrosis, unspecified whether gene ralized or localized, lower leg Personal history of DVT (deep vein throm bosis) Personal history of venous thrombosis an d embolism Elevated blood pressure reading without diagnosis of hypertension Anticardiolipin antibody positive Other and unspecified nonspecific immuno logical findings documented in this encounter Care Teams Prepared Foods Supervisor Relationship Specialty Start Date End Date Ian Kendrick MD PCP - General 11/19/07 02/21/14 [facility]3] [address] [place] [address] documented as of this encounter
--- OUTSIDE RECORDS SUMMARY | 2022-05-15 22:37 | XMS_ITS | Encounter Summary ---
:1955 Author Organization [place] Address [address] [place] [address] Care Team Providers Name Role Phone Ian Kendrick MD Primary Care Provider [phone] Encounter Details Date Type Department Care Team Description 08/04/2013 Orders Only [facility] MD Angel Luis examination, [address] [facility] unspecified (Primary [place], [place] ORTHOPEDICS Dx) [id number] [phone] [address] [place] [address] Social History Tobacco Use Types Packs/Day Years Used Date Smoking Tobacco: Former Cigarettes 2 25 Quit : 08/04/2006 Smokeless Tobacco: Never Comments: 2004 Alcohol Use Standard Drinks/Week Comments Yes 0 (1 standard drink = 0.6 oz pure alcoho l) 4 BEERS A WEEK Alcohol Habits Answer Date Recorded How often do you have a drink containing 4 or more times a w saxman 05/25/2021 alcohol? How many drinks containing alcohol [...] you attend episcopalian or Patient refused 2020 presybeterian services? Do [...] as of this encounter Visit Diagnoses Diagnosis Preoperative examination, unspecified - Primary documented in this encounter Care Teams Moose Hunter Relationship Specialty Start Date End Date Ian Kendrick MD PCP - General 11/19/07 02/21/14 [facility] [address] [place] [address] documented as of this encounter
--- OUTSIDE RECORDS SUMMARY | 2022-05-15 22:37 | XMS_ITS | Encounter Summary ---
:1955 Author Organization [place] Address [address] [place] [address] Care Team Providers Name Role Phone Ian Kendrick MD Primary Care Provider [phone] Froylan Louise MD Primary Care Provider Unavailable Froylan Louise MD Unavailable Unavailable Froylan Louise MD Unavailable Unavailable Esthela Corea RN Unavailable Unavailable So Dodd MD Primary Care Provider Froylan Louise MD Primary Care Provider Unavailable So Dodd MD Unavailable So Dodd MD Primary Care Provider Reason for Visit Reason Onset Date Comments Medication Request 02/01/2013 need 5 more refills on Imodium Encounter Details Date Type Department Care Team Description 02/01/2013 [facility] Ian Kendrick Medica tion Request Clinic Chhaya Daniels MD (need 5 more refills [address] [facility] CLINIC on Imodium) [place], [place] [address] [facility] [address] [facility] [phone] [place] [address] (Wo rk) Social History Tobacco Use Types Packs/Day Years Used Date Smoking Tobacco: Former Cigarettes Smokeless Tobacco: Never Comments: 2004 Alcohol Use Standard Drinks/Week Comments Yes 0 (1 standard drink = 0.6 oz pure alcoho l) 4 BEERS A WEEK Alcohol Habits Answer Date Recorded How often do you have a drink containing 4 or more times a w [place] 05/25/2021 alcohol? How many drinks containing alcohol [...] you attend buddhism or Patient refused 2020 bahai services? Do [...] this encounter Miscellaneous Notes Telephone Encounter - Valerie Joshi - 02/01/2013 4:54 PM CDT Patient called and the patient needs his Imodium label to have 5 more refills until the first of theyear due to insurance. If need to talk to patient his phone number is [phone]. documented in this encounter Plan of Treatment [...] documented as of this encounter Care Teams Kiln Loader Relationship Specialty Start Date End Date Ian Kendrick PCP - General 11/19/07 02/21/14 [facility] [address] [place] [address] Froylan Louise MD PCP - General Family Practice 02/22/14 Froylan Louise MD PCP - Assigned PCP 03/13/14 08/25/18 So Dodd MD PCP - General Family Medicine 01/10/22 01/17/22 [address] [place], [place] [id number] Froylan Louise MD PCP - General Family Medicine 01/18/22 So Dodd MD PCP - General Family Medicine 02/21/22 [address] [place] [address] Froylan Louise MD Assigned PCP 03/13/14 2 Esthela Corea RN Personal Advocate & Family Medicine 10/16/20 Liaison (PAL) So Dodd MD Assigned PCP 01/05/22 [address] [place] [address] documented as of this encounter
--- OUTSIDE RECORDS SUMMARY | 2022-05-15 22:37 | XMS_ITS | Encounter Summary ---
:1955 Author Organization [place] Address [address] [place] [address] Care Team Providers Name Role Phone Ian Kendrick MD Primary Care Provider [phone] Reason for Visit Reason Onset Date Comments Refill Request 02/23/2013 loperamide (IMODIUM) 2 MG capsule Encounter Details Date Type Department Care Team Description 02/23/2013 Refill [facility] Ian Kendrick Refill Request Clinic Chhaya Daniels MD (loperamide (IMODIUM) [address] [address] [facility] MG capsule) [place], [place] [address] [facility] [address] [facility] [phone] [place] [address] (Wo rk) Social History Tobacco Use Types Packs/Day Years Used Date Smoking Tobacco: Former Cigarettes Smokeless Tobacco: Never Comments: 2004 Alcohol Use Standard Drinks/Week Comments Yes 0 (1 standard drink = 0.6 oz pure alcoho l) 4 BEERS A WEEK Alcohol Habits Answer Date Recorded How often do you have a drink containing 4 or more times a w squaxin 05/25/2021 alcohol? How many drinks containing alcohol [...] you attend taoism or Patient refused 2020 roman catholic services? [...] Notes Telephone Encounter - Chacha Laboy - 02/24/2013 1:37 PM CDT Chacha Laboy Rn unable to fill Pt requesting monique JENNIFER: 10/08/2012 Refill:loperamide (IMODIUM) 2 MG capsule [...] in. Chacha Laboy RN. Telephone Encounter - Carolin Dawson - 02/23/2013 4:26 PM CDT Patient is requesting a refill for medication loperamide (IMODIUM) 2 MG capsule 480 capsule 0 01/29/2013 Sig: Take 3-4 capsules (6-8 mg) by mouth 3 times daily Class: E-Prescribe documented in this encounter Plan of Treatment Upcoming Encounters Date Type Specialty Care Team Description 05/20/2022 Lab Lab documented as of this encounter Visit Diagnoses Diagnosis ULCERATIVE COLITIS NOS - Primary Ulcerative colitis, unspecified documented in this encounter Care Teams Student Records Coordinator Relationship Specialty Start Date End Date Ian Kendrick MD PCP - General 11/19/07 02/21/14 [place] [address] [place] [address] documented as of this encounter
--- OUTSIDE RECORDS SUMMARY | 2022-05-15 22:38 | XMS_ITS | Encounter Summary ---
:1955 Author Organization [place] Address [address] [place] [address] Care Team Providers Name Role Phone Ian Kendrick MD Primary Care Provider [phone] Encounter Details Date Type Department Care Team Description 08/10/[address] [facility] Fat igue; [facility] Erectile dysfunction; [address] [facility] Screening cholesterol level; [place] [address] Hyperlipidemia LDL goal <130 Social History Tobacco Use Types Packs/Day Years Used Date Smoking Tobacco: Former Cigarettes Smokeless Tobacco: Never Comments: 2004 Alcohol Use Standard Drinks/Week Comments Yes 0 (1 standard drink = 0.6 oz pure alcoho l) 4 BEERS A WEEK Alcohol Habits Answer Date Recorded How often do you have a drink containing 4 or more times a w [place] 05/25/2021 alcohol? How many drinks containing alcohol [...] Procedure Name Priority Date/Time Associated Comments Diagnosis TSH WITH FREE T4 Routine 08/10/2011 9:33 AM Fatigue Resul ts for this REFLEX CERTIFIED PARALEGAL procedure are i n the results section. TESTOSTERONE TOTAL Routine 08/10/2011 9:33 AM Fatigue Results for this CERTIFIED PARALEGAL Erectile procedure are i n dysfunction the results section. SEX HORMONE BINDING Routine 08/10/2011 9:33 AM Fatigue Results for this GLOBULIN CERTIFIED PARALEGAL Erectile procedure are i n dysfunction the results section. LIPID REFLEX TO DIRECT Routine 08/10/2011 9:33 AM Screening Results for this LDL PANEL CERTIFIED PARALEGAL cholesterol leve l procedure are in Hyperlipidemia LDL the resul ts goal <130 section. COMPREHENSIVE Routine 08/10/2011 9:33 AM Fatigue Results for this METABOLIC PANEL CERTIFIED PARALEGAL Erectile procedure ar e in dysfunction the results section. CBC WITH PLATELETS Routine 08/10/2011 9:33 AM Fatigue Res ults for this CERTIFIED PARALEGAL procedure are i n the results section. documented in this encounter Results Testosterone total (08/10/2011 9:33 AM CERTIFIED PARALEGAL) Analysis Performed At Patho logist Time Signature Testosterone 296 240 - 950 [facility] Total ng/dL [facility] LAB[facility] Specimen Anatomical Collection Method Collection Time Receive d Time (Source) Location / / Volume Laterality Blood specimen 08/10/2011 9:33 AM 012 9:35 (specimen) CERTIFIED PARALEGAL AM CERTIFIED PARALEGAL Ian Kendrick MD LAB - BLOOD ORDERABLES Performing Organization Address City/State/ZIP Code Phon e Number [facility] [address] [place], [place] [id number] [place] [address] LABS CBC with platelets (08/10/2011 9:33 AM CERTIFIED PARALEGAL) P athologist Signature WBC 5.5 4.0 - 11.0 [facility] 10e9/L [facility] RBC Count 4.88 4.4 - 5.9 [facility] 10e12/L [facility] Hemoglobin 14.8 13.3 - [facility] 17.7 g/dL [facility] Hematocrit 44.7 40.0 - [facility] 53.0 % [facility] MCV 92 78 - 100 [facility] fl [facility] MCH 30.3 26.5 - [facility] 33.0 pg [facility] MCHC 33.1 31.5 - [facility] 36.5 g/dL [facility] RDW 13.3 10.0 - [facility] 15.0 % [facility] Platelet Count 164 150 - 450 [facility] 10e9/L [facility] Specimen Anatomical Collection Method Collection Time Receive d Time (Source) Location / / Volume Laterality Blood specimen 08/10/2011 9:33 AM 012 9:35 (specimen) CERTIFIED PARALEGAL AM CERTIFIED PARALEGAL Ian Kendrick MD LAB - BLOOD ORDERABLES Performing Organization Address City/State/ZIP Code Phon e Number [facility] [address] [place] [address] [facility] LAB Comprehensive metabolic panel (08/10/2011 9:33 AM CERTIFIED PARALEGAL) P athologist Signature Sodium 138 133 - 144 [facility] mmol/L [facility] Potassium 4.6 3.4 - 5.3 [facility] mmol/L CLINIC LAB Chloride 102 94 - 109 [place] mmol/L [facility] Carbon Dioxide 26 20 - 32 [place] mmol/L [facility] Anion Gap 10 6 - 17 [place] mmol/L [facility] Glucose 99 60 - 99 [place] mg/dL [facility] Urea Nitrogen 18 7 - 30 [place] [facility] mg/dL [facility] Creatinine 0.94 0.66 - [facility] 1.25 mg/dL CLINIC LAB GFR Estimate 84 >60 [facility] [facility] mL/min/1.7 CLINIC LAB m2 GFR Estimate If >90 >60 [facility] Black mL/min/1.7 CLINIC LAB m2 Calcium 9.4 8.5 - 10.4 [facility] [facility] mg/dL [facility] Bilirubin Total 1.3 0.2 - 1.3 [facility] mg/dL CLINIC LAB Albumin 4.0 3.9 - 5.1 [facility] g/dL CLINIC LAB Comment: Reference range changed on 02/22. Protein Total 7.7 6.8 - 8.8 g/dL [facility] LAB Comment: As of 07, reference range reflects plasma specimen type. Alkaline Phosphatase 85 40 - 150 U/L [facility] LAB ALT 33 0 - 70 U/L [facility] IC LAB AST 31 0 - 45 U/L [facility] LAB Specimen Anatomical Collection Method Collection Time Receive d Time (Source) Location / / Volume Laterality Blood specimen 08/10/2011 9:33 AM 012 9:35 (specimen) CERTIFIED PARALEGAL AM CERTIFIED PARALEGAL Ian Kendrick MD LAB - BLOOD ORDERABLES Performing Organization Address City/[facility]/ZIP Code Phon e Number [facility] [address] [place] [address] [facility] TSH with free T4 reflex (08/10/2011 9:33 AM CERTIFIED PARALEGAL) athologist Signature TSH 2.86 0.4 - 5.0 [facility] mU/L [facility] Specimen Anatomical Collection Method Collection Time Receive d Time (Source) Location / / Volume Laterality Blood specimen 08/10/2011 9:33 AM 012 9:35 (specimen) CERTIFIED PARALEGAL AM CERTIFIED PARALEGAL Ian Kendrick MD LAB - BLOOD ORDERABLES Performing Organization Address City/[facility]/ZIP Code Phon e Number [facility] [address] [place] [address] [facility] LAB (ABNORMAL) Lipid panel reflex to direct LDL (08/10/2011 9:33 AM CERTIFIED PARALEGAL) athologist Signature Cholesterol 218 (H) 0 - 200 [facility] mg/dL CLINIC LAB Comment: LDL Cholesterol is the primary guide to therapy. The NCEP recommends further evaluation of: patients with cholesterol greater than 200 mg/dL if additional risk facto rs are present, cholesterol greater than 240 mg/dL, triglycerides greater than 1 50 mg/dL, or HDL less than 40 mg/dL. Triglycerides 157 (H) 0 - 150 mg/dL [facility] HDL Cholesterol 47 40 - 110 mg/dL [facility] LDL Cholesterol Calculated 140 (H) 0 - 129 mg/dL [facility] LAB Comment: LDL Cholesterol is the primary guide to therapy: LDL-cholesterol goal in high risk patients is <100 mg/dL and in very high risk patients is <70 mg/dL. VLDL-Cholesterol 31 (H) 0 - 30 mg/dL [facility] LAB Cholesterol/HDL Ratio 4.7 0.0 - 5.0 [facility] LAB Specimen Anatomical Collection Method Collection Time Receive d Time (Source) Location / / Volume Laterality Blood specimen 08/10/2011 9:33 AM 012 9:35 (specimen) CERTIFIED PARALEGAL AM CERTIFIED PARALEGAL Ian Kendrick MD LAB - BLOOD ORDERABLES Performing Organization Address City/[facility]/ZIP Code Phon e Number [facility] [address] [place] [address] [facility] LAB Sex hormone binding globulin (08/10/2011 9:33 AM CERTIFIED PARALEGAL) athologist Signature Sex Hormone [facility] LAB Comment: Reference range: 11 to 80 Unit: nmol/L (Note) Performed by [employer], [address] [place] [id number] [email or web address], Montserrat Cordon MD, Lab. Director Specimen Anatomical Collection Method Collection Time Receive d Time (Source) Location / / Volume Laterality Blood specimen 08/10/2011 9:33 AM 012 9:35 (specimen) CERTIFIED PARALEGAL AM CERTIFIED PARALEGAL Ian Kendrick MD LAB - BLOOD ORDERABLES Performing Organization Address City/[facility]/ZIP Code Phon e Number [facility] [address] [place] [address] [facility] documented in this encounter Visit Diagnoses Diagnosis Fatigue Other malaise and fatigue Erectile dysfunction Impotence of organic origin Screening cholesterol level Screening for lipoid disorders Hyperlipidemia LDL goal <130 Other and unspecified hyperlipidemia documented in this encounter Care Teams Assembler Knife Relationship Specialty Start Date End Date Ian Kendrick MD PCP - General 11/19/07 02/21/14 [facility] [address] [place] [address] documented as of this encounter
--- OUTSIDE RECORDS SUMMARY | 2022-05-15 22:38 | XMS_ITS | Encounter Summary ---
:1955 Author Organization [place] Address [address] [place] [address] Care Team Providers Name Role Phone Ian Kendrick MD Primary Care Provider [phone] Reason for Visit Reason Onset Date Comments Nurse Advice Line 04/20/2012 medications refill Encounter Details Date Type Department Care Team Description 04/20/2012 Telephone [facility] Ian Kendrick Nurse Advice Line [facility] MD Jeremiah (medications refill) [address] [place] [address] [place] [phone] [facility] [phone] [place] [address] (Wo rk) Social History Tobacco [...] you attend hinduism or Patient refused 2020 bahai services? Do [...] this encounter Miscellaneous Notes Telephone Encounter - Antonieta Singh - 04/22/2012 9:07 AM CDT Refilled for 90 day supply, mailed AAP. Antonieta Singh RN Message Handled by Nurse Triage Telephone Encounter - Marco Pak - 04/21/2012 4:50 PM CDT Act done and entered. Will route back to [place] triage. Marco Pak HANDBAG DESIGNER Telephone Encounter - Esthela Merritt - 04/20/2012 3:05 PM CDT LM for back. Esthela Merritt RN Telephone Encounter - Esthela Merritt - 04/20/2012 11:38 AM CDT LM pt needs to update ACT- Then mail updated AAP- Can fill 90 day supply pt would need to follow up in July 2012 Esthela Merritt RN RF request for Atrovent Inhaler Ok per RN protocol x 3 mos. JENNIFER 08/09/11 Esthela Merritt RN BP Readings from Last 1 Encounters: 03/23/12 128/86 AAP date: -Asthma Action Plan (AAP) on file (if not clear refer to PCP or make appt) -Encounter/OV: every 12 months -Max RF's until next OV related to diagnosis: 12months Category: Asthma & COPD/Other Medications RF request for Proair Oral Inhaler Ok per RN protocol x 3 mos. -Asthma Action Plan (AAP) on file -If >6 canisters requested per yr, refer to PCP (approx 200 puffs/canister) -Encounter/OV: every 12 months -Max RF's until next OV related to diagnosis: 12months -If AAP not clear, refer to PCP or ask pt to make OV Category: Asthma & COPD/Bronchodialtor Inhalers RF request for QVAR Oral Inhaler Ok per RN protocol x 3 mos. -Asthma Action Plan (AAP) on file (if not clear refer to PCP or make appt) -Encounter/OV: every 12 months -Max RF's until next OV related to diagnosis: 12 months Category: Asthma & COPD/Oral Steroid Inhalers RF request for Lasix Ok per RN Protocol x 3 mos BP Readings from Last 1 Encounters: 03/23/12 128/86 Potassium Date Value Range Status 08/10/2011 4.6 3.4 - 5.3 mmol/L Final ] Creatinine Date Value Range Status 08/10/2011 0.94 0.66 - 1.25 mg/dL Final ] -OV every 6 months (review last provider visit notes) -BP <140/90 for Diabetics -BP <130/80 for Vascular Disease -K+ or Basic Metabolic, Creatinine every 6 months & after dosage change -Re-check BP 1-2 months after dosage change Category: Hypertension/Diuretics Telephone Encounter - Carolin Dawson - 04/20/2012 11:19 AM CDT Name of caller: Virgil Relationship to pt: self Reason for call: Patient is requesting a refill on all medications, his insurance is going to end [facility] 04/22 and he will not be able to afford the medication. Can we send in a Rx for a one year supply for the patient.? Best phone number to reach pt at is:[phone] Ok to leave a message with medical info? Pharmacy Information: loperamide (IMODIUM) 2 MG capsule Furosemide (LASIX) 20 MG tablet beclomethasone (QVAR) 80 MCG/ACT inhaler ipratropium (ATROVENT HFA) 17 MCG/ACT inhaler albuterol (PROAIR HFA) 108 (90 BASE) MCG/ACT inhaler Carolin Dawson Food And Beverage Cashier documented in this encounter Plan of Treatment Upcoming Encounters Date Type Specialty Care Team Description 05/20/2022 Lab Lab documented as of this encounter Visit Diagnoses Diagnosis Mild persistent asthma - Primary Unspecified asthma Edema leg Edema documented in this encounter Care Teams Sandblast Or Shotblast Equipment Tender Relationship Specialty Start Date End Date Ian Kendrick MD PCP - General 11/19/07 02/21/14 [facility] [address] [place] [address] documented as of this encounter
--- OUTSIDE RECORDS SUMMARY | 2022-05-15 22:38 | XMS_ITS | Encounter Summary ---
:1955 Author Organization [facility] Address [address] [place] [address] Care Team Providers Name Role Phone Ian Kendrick MD Primary Care Provider [phone] Reason for Visit Reason Onset Date Comments Erroneous encounter-disregard 04/20/2012 Encounter Details Date Type Department Care Team Description 04/20/[address] [facility] Ian Kendrick [facility] MD Jeremiah encounter-disregard [address] [place] [address] [place] [phone] [facility] [phone] [place] [address] (Wo rk) Social History Tobacco [...] you attend scientologist or Patient refused 2020 pentecostalism services? Do [...] on filedocumented in this encounter Care Teams Storage Garage Attendant Relationship Specialty Start Date End Date Ian Kendrick MD PCP - General 11/19/07 02/21/14 [place] [id number] [place] [address] documented as of this encounter
--- OUTSIDE RECORDS SUMMARY | 2022-05-15 22:38 | XMS_ITS | Encounter Summary ---
:1955 Author Organization [facility] Address [address] [place] [address] Care Team Providers Name Role Phone Ian Kendrick MD Primary Care Provider [phone] Reason for Visit Reason Onset Date Comments Results 03/24/2012 MRI knee results Encounter Details Date Type Department Care Team Description 03/24/2012 Telephone [facility], Destiny Marin (MRI knee Orthopedic DO results) [facility] [address] [facility], [address] [facility] [address] [place] [address] [place], [place] [phone] (Wo rk) [address] [phone] Social History Tobacco Use Types Packs/Day Years Used Date Smoking Tobacco: Former Cigarettes Smokeless Tobacco: Never Comments: 2005 Alcohol Use Standard Drinks/Week Comments Yes 0 (1 standard drink = 0.6 oz pure alcoho l) 4 BEERS A WEEK Alcohol Habits Answer Date Recorded How often do you have a drink containing 4 or more times a w [place] 05/25/2021 alcohol? How many drinks containing alcohol [...] you attend christian or Patient refused 2020 oriental orthodox services? [...] this encounter Miscellaneous Notes Telephone Encounter - Virgil White DO - 03/24/2012 11:36 AM CDT MRI of the right knee results reviewed and discussed with the patient: IMPRESSION: 1. Marked degeneration, maceration and complex tearing throughout most of the medial meniscus with relative sparing of the anterior horn which still shows a probable small horizontal tear. 2. Advanced cartilage loss and subchondral bony changes medial compartment. 3. Question of very early chondromalacia patella at the patellar apex. 4. Joint space effusion with synovitis. 5. Tibial collateral ligament bursitis. Medial compartment OA changes. Possibly a good candidate for partial knee replacement. Recommend evaluation with Dr. Fonseca. documented in this encounter Plan of Treatment Upcoming Encounters Date Type Specialty Care Team Description 05/20/2022 Lab Lab documented as of this encounter Visit Diagnoses Not on filedocumented in this encounter Care Teams Hazmat Cdl Driver Relationship Specialty Start Date End Date Ian Kendrick MD PCP - General 11/19/07 02/21/14 [place] [id number] [place] [address] documented as of this encounter
--- OUTSIDE RECORDS SUMMARY | 2022-05-15 22:38 | XMS_ITS | Encounter Summary ---
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 07/11/2011 Proactive Pa tient Outreach Encounter Details Date Type Department Care Team Description 07/11/2011 Telephone [facility] Ian Kendrick ANAGER - [facility] [place] MD INTRODUCTION (Proactive [id number] [facility] Patient Outreach) [facility] [phone] [address] [facility] [phone] [place] [address] (Wo rk) Social History Tobacco Use Types Packs/Day Years Used Date Smoking Tobacco: Former Cigarettes Comments: 2005 Alcohol Use Standard Drinks/Week Comments Yes 0 (1 standard drink = 0.6 oz pure alcoho l) 4 BEERS A WEEK Alcohol Habits Answer Date Recorded How often do you have a drink containing 4 or more times a w [place] 05/25/2021 alcohol? How many drinks containing [...] you attend christian or Patient refused 2020 buddhism services? Do [...] this encounter Miscellaneous Notes Telephone Encounter - Rose Gonzalez - 07/16/2011 2:44 PM CST Utilization: Patient identified through risk stratification. Disease State: Patient states that he is doing well currently. He has no current health issues or concerns and has not had any asthma flare ups. He states that he follows Dr. Kendrick once a year, and more frequently if needed. He does not follow any specialists. Medications: Patient is taking a couple medications. He does fill them at [facility] in [place], and states that they are very reliable. He does not have any troubles taking his medications. Education: Encouraged patient to call clinic with concerns; informed patient of nurse availability 13/01 through clinic number, and urgent care facilities for after hours needs. Follow up: Patient will follow up with PCP as needed. No further outreach needed at this time. Rose Gonzalez Care Coordination Cornetist RNAL COMMUNICATIONS INTERN Telephone Encounter - Michelle Mejia - 07/11/2011 5:10 PM CST Patient called back to let Rose know he is fine and no need to see Dr. Kendrick. RNAL COMMUNICATIONS INTERN Telephone Encounter - Rose Gonzalez - 07/11/2011 4:34 PM CST Outreached to patient identified through risk stratification; no answer, left message with my phone number requesting a callback. I will try back another time. Rose Gonzalez Care Coordination QualityLefermin. RNAL COMMUNICATIONS INTERN documented in this encounter Plan of Treatment Upcoming Encounters Date Type Specialty Care Team Description 05/20/2022 Lab Lab documented as of this encounter Visit Diagnoses Not on filedocumented in this encounter Care Teams Compass Operator Relationship Specialty Start Date End Date Ian Kendrick MD PCP - General 11/19/07 02/21/14 [place] [id number] [place] [address] documented as of this encounter
--- OUTSIDE RECORDS SUMMARY | 2022-05-15 22:38 | XMS_ITS | Encounter Summary ---
:1955 Author Organization [place] Address [address] [place] [address] Care Team Providers Name Role Phone Ian Kendrick MD Primary Care Provider [phone] Reason for Visit Reason Onset Date Comments Refill Request 01/03/2012 Encounter Details Date Type Department Care Team Description 01/03/[address] [facility] Ian Kendrick, Refill Request Chhaya VILLASEÑOR [address] [place] [address] [facility] [phone] [facility] [address] (Wo rk) Social History Tobacco [...] you attend sikh or Patient refused 2020 scientology services? Do [...] this encounter Miscellaneous Notes Telephone Encounter - Venice Freitas - 01/03/2012 10:25 AM CDT RF request for Edna Rice per RN Protocol x 2 mos JENNIFER- 08/09/2011 Venice Freitas RN BP Readings from Last 1 Encounters: 10/24/11 124/60 Potassium Date Value Range Status 08/10/2011 4.6 3.4-5.3 (mmol/L) Final ] Creatinine Date Value Range Status 08/10/2011 0.94 0.66-1.25 (mg/dL) Final ] -OV every 6 months (review last provider visit notes) -BP <140/90 for Diabetics -BP <130/80 for Vascular Disease -K+ or Basic Metabolic, Creatinine every 6 months & after dosage change -Re-check BP 1-2 months after dosage change Category: Hypertension/Diuretics documented in this encounter Plan of Treatment Upcoming Encounters Date Type Specialty Care Team Description 05/20/2022 Lab Lab documented as of this encounter Visit Diagnoses Diagnosis Edema leg - Primary Edema documented in this encounter Care Teams Vocational Rehab Consultant Relationship Specialty Start Date End Date Ian Kendrick MD PCP - General 11/19/07 02/21/[address] [address] documented as of this encounter
--- OUTSIDE RECORDS SUMMARY | 2022-05-15 22:38 | XMS_ITS | Encounter Summary ---
:1955 Author Organization [place] Address [address] [place] [address] Care Team Providers Name Role Phone Ian Kendrick MD Primary Care Provider [phone] Encounter Details Date Type Department Care Team Description 03/23/2012 Hospital Encounter [facility] Virgil Morelos Knee pain; [facility] DO [place] Osteoarthritis [address] [facility] [phone] [facility] [phone] [place] [address] (Wo rk) Social History Tobacco Use Types Packs/Day Years Used Date Smoking Tobacco: Former Cigarettes Smokeless Tobacco: Never Comments: 2004 Alcohol Use Standard Drinks/Week Comments Yes 0 (1 standard drink = 0.6 oz pure alcoho l) 4 BEERS A WEEK Alcohol Habits Answer Date Recorded How often do you have a drink containing 4 or more times a w [place] 05/25/2021 alcohol? How many drinks containing alcohol [...] you attend yazdanism or Patient refused 2020 evangelical services? Do [...] Date albuterol (PROAIR HFA) Inhale 1-2 puffs 1 Inhaler 12 012 04/20/2012 108 (90 BASE) MCG/ACT into the lungs inhalerIndications: Mild every 4 hours as persistent asthma needed. beclomethasone (QVAR) 80 Inhale 1 puff into 1 Inhaler 12 04/20/2012 MCG/ACT the lungs 2 times inhalerIndications: Mild daily. persistent asthma Furosemide (LASIX) 20 MG Take 0.5-1 tablets 30 tablet 2 04/20/2012 tabletIndications: Edema by mouth. Take as leg needed for leg swelling. HYDROcodone-acetaminophe Take 1 tablet by 30 tablet 0 10/2807/07/2013 n (VICODIN) 5-500 MG per mouth every 6 hours tabletIndications: as needed for pain. Lateral epicondylitis ipratropium (ATROVENT Inhale 2 puffs into 1 Inhaler 12 08/0904/20/2012 HFA) 17 MCG/ACT the lungs 4 times inhalerIndications: Mild daily. persistent asthma loperamide (IMODIUM) 2 Take 3-4 capsules 480 capsule 12 08/0904/16/2012 MG capsuleIndications: by mouth 3 times Ulcerative colitis, daily. unspecified ORDER FOR Closed patella knee 1 Device 0 09/13/201109/28 DMEIndications: sleeve, large Prepatellar bursitis ORDER FOR RINA hose or support 2 Units 2 04/18/201003/04 DMEIndications: Embolism stocking, knee high and thrombosis of SZ M4 30-40 mmHg unspecified site ORDER FOR RINA hose or support 2 Units 1 04/18/201005/27 DMEIndications: Embolism stocking, thigh and thrombosis of high 30-40 mmHg unspecified site sildenafil (VIAGRA) 50 Take 0.5-1 tablets 6 [...] sleep. Insomnia documented as of this encounter Miscellaneous Notes Initial Assessments - Abstract, Provider - 03/23/2012 7:05 PM CDT documented in this encounter Plan of Treatment Upcoming Encounters Date Type Specialty Care Team Description 05/20/2022 Lab Lab documented as of this encounter Procedures Procedure Name Priority Date/Time Associated Diagnosis Comme nts MR LOWER EXTREMITY Routine 03/23/2012 2:09 PM Knee pain Results for this JOINT RIGHT W/O CDT Osteoarthritis procedure are in CONTRAST the results section. documented in this encounter Results MRI Lower extremity joint w/o contrast rt* (03/23/2012 2:09 PM CDT) Anatomical Region Laterality Modality Lower Extremity, SUBRAD MR MSK, UMP MR MSK Magnetic Resonance Specimen (Source) Anatomical Collection Method Collection Time Re ceived Time Location / / Volume Laterality 03/23/2012 2:09 PM CDT Impressions 03/23/2012 4:43 PM CDT MR RIGHT KNEE 03/23/2012 2:09 PM HISTORY: Medial and anterior knee pain f or five years. No specific injury. TECHNIQUE: Sagittal proton density and T 2 weighted images, coronal T1 and coronal and axial T2 fat suppressed images were obtained. COMPARISON: None. FINDINGS: Menisci: Medial meniscus: Marked degeneration, ma ceration and complex tearing throughout the midbody and posterior hor n with a lesser degree of degeneration in the anterior horn. There is probably a superimposed horizontal tear in the anterior horn. No displaced meniscal fragments or flaps. Mild peripheral extrusion of t he midbody. Lateral meniscus: Normal. Cruciate ligaments: Anterior cruciate ligament: Normal. Posterior cruciate ligament: Normal. Collateral supporting structures: Medial collateral ligament: Normal. Lateral supporting structures: The dista l biceps tendon, fibular collateral ligament, distal iliotibial t ract and popliteus muscle and tendon are normal. Osseous structures and cartilaginous nelli faces: No acute appearing bony abnormalities. There is marked thin brittanie of articular cartilage in the weightbearing medial compartment. This is associated with subchondral mixed sclerosis and minimal edema/microcystic changes. There is also a small amount of degenera tive marginal bony spurring. Articular cartilages in the weightbearin g lateral compartment appear normal. There is question of minimal nelli face irregularity of articular cartilage at the patellar apex (images 10 and 11 of series 5). Additional findings: Small to moderate s ized joint space effusion with evidence for mild synovitis in the suprapatellar bursa. Small intra-articular or periarticular ganglio n cyst located posterior to the posterior cruciate ligament. There i s a small amount of fluid in the tibial collateral ligament bursa. IMPRESSION: 1. Marked degeneration, maceration and c omplex tearing throughout most of the medial meniscus with relativ e sparing of the anterior horn which still shows a probable small horizontal tear. 2. Advanced cartilage loss and subchondr al bony changes medial compartment. 3. Question of very early chondromalacia patella at the patellar apex. 4. Joint space effusion with synovitis. 5. Tibial collateral ligament bursitis. Virgil White DO IMG MRI ORDERABLES documented in this encounter Visit Diagnoses Diagnosis Knee pain Pain in joint, lower leg Osteoarthritis Osteoarthrosis, unspecified whether gene ralized or localized, unspecified site documented in this encounter Care Teams Wool Fleece Sorter Relationship Specialty Start Date End Date Ian Kendrick MD PCP - General 11/19/07 02/21/14 [facility] [address] [place] [address] documented as of this encounter
--- OUTSIDE RECORDS SUMMARY | 2022-05-15 22:38 | XMS_ITS | Encounter Summary ---
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 Encounter Details Date Type Department Care Team Description 09/13/2011 Office Visit Virgil Acevedo Subacromia l or subdeltoid bursitis (Primary Dx); Orthopedic DO Roel Pain in shoulder; [facility] ORTHOPEDIC Prepatell ar bursitis Sports [facility] [address] [facility], [address] [facility] [address] [place] [id number] [phone] Social History Tobacco Use Types Packs/Day Years Used Date Smoking Tobacco: Former Cigarettes Smokeless Tobacco: Never Comments: 2004 Alcohol Use Standard Drinks/Week Comments Yes 0 (1 standard drink = 0.6 oz pure alcoho l) 4 BEERS A WEEK Alcohol Habits Answer Date Recorded How often do you have a drink containing 4 or more times a w inupiat 05/25/2021 alcohol? How many drinks containing alcohol [...] you attend yarsani or Patient refused 2020 latter-day services? Do [...] Sign Reading Time Taken Comments Blood Pressure 106/68 09/13/2011 9:14 AM CDT Pulse - - Temperature - - Respiratory Rate - - Oxygen Saturation - - Inhaled Oxygen Concentration - - Weight 108 kg (238 lb) 09/13/2011 9:14 AM CDT Height 182.9 cm (6') 09/13/2011 9:14 AM CDT Body Mass Index 32.28 09/13/2011 9:14 AM CDT documented in this encounter Progress Notes Cindy Virgil Sevilla, DO - 09/13/2011 9:16 AM CDT SUBJECTIVE: PCP: Ian Kendrick MD Virgil Christine is a 55 year old male who is seen in consultation at the request of Dr. Kendrick for left shoulder pain. 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 Nighttime aching Prior history of related problems: No acute traumatic incident or injury recalled. Patient's past medical, surgical, social and family histories reviewed. Past medical history notablefor: reviewed on the up to date problem list in the chart REVIEW OF SYSTEMS: CONSTITUTIONAL:NEGATIVE for fever, chills, change in weight INTEGUMENTARY/SKIN: NEGATIVE for worrisome rashes, moles or lesions MUSCULOSKELETAL:See HPI above NEURO: NEGATIVE for weakness, dizziness or paresthesias BP 106/68 Ht 6' (1.829 m) Wt 238 lb (107.956 kg) BMI 32.28 kg/m2 EXAM: GENERAL APPEARANCE: healthy, alert and no distress GAIT: NORMAL SKIN: no suspicious lesions or rashes NEURO: Normal strength and tone, mentation intact and speech normal PSYCH: mentation appears normal and affect normal/bright MUSCULOSKELETAL: LEFT SHOULDER Inspection: no swelling, bruising, discoloration, or obvious deformity or asymmetry Tender: anterior capsule and subacromial space Non-tender: SC joint and AC joint Range of Motion Active:all normal Passive: all normal Strength: rotator cuff strength full Special tests: Positive: Neers and Zee Negative: O'Briens and cross arm adduction RIGHT SHOULDER Palpation: Non-tender SC joint, clavicle, AC joint, acromion, subacromial space, proximal bicep tendon and upper trapezius muscle Range of Motion Active:all normal Passive: all normal Strength: rotator cuff strength full Special tests: Negative Neer's test, Negative Zee, Negative Cross-Arm adduction, Negative Karimi's ASSESSMENT/PLAN Pain in shoulder [719.41H] Subacromial or subdeltoid bursitis [726.19Q] Plan: Diagnosis explained and theraputic options discussed. Recommended a theraputic cortisone injection for pain relief. Discussed activity modifications and home exercise plan. After risks, benefits and complications of steroid injection were discussed with the patient he elected to proceed. Using sterile technique, the area was first prepped with betadyne and an alcohol swab. A 22 gauge needle was used to inject 40 mg Kenalog and 9 cc of 0.5% marcaine into subacromial spaceon the left. Virgil tolerated the procedure well without complications. Prepatellar bursitis [726.65] Plan: Diagnosis explained and theraputic options discussed. Compression with closed patellar knee sleeve, ice and NSAIDs. X-RAY INTERPRETATION X-Ray of the Left Shoulder: 3-views ap, y and axillary ordered and interpreted in the office today was positive for IMPRESSION: Moderate degenerative changes at the acromioclavicular joint. Otherwise unremarkable exam. documented in this encounter Nursing Notes 09/13/2011 9:00 AM CDT >> ROSELINE BARRIGA Fri Sep 13, 2011 9:16 AM Patient presents with: Shoulder left - chronic due to brick laying, anterior aspect Initial BP 106/68 Ht 6' (1.829 m) Wt 238 lb (107.956 kg) BMI 32.28 kg/m2 Estimated Body mass index is 32.28 kg/(m^2) as calculated from the following: Height as of this encounter: 6' 0(1.829 m). Weight as of this encounter: 238 lb(107.956 kg).. BP completed using cuff size: lorne Barriga ATC documented in this encounter Plan of Treatment Upcoming Encounters Date Type Specialty Care Team Description 05/20/2022 Lab Lab documented as of this encounter Procedures Procedure Name Priority Date/Time Associated Diagnosis Comme nts HC DRAIN/INJ MAJOR Routine 09/13/2011 5:07 PM Pain in sh oulder JOINT/BURSA W/O US CDT Subacromial or subdeltoid bursitis XR SHOULDER LEFT Routine 09/13/2011 9:49 AM Pain in shoulder R esults for this G/E 3 VIEWS CDT procedure are i n the results section. documented in this encounter Results X-ray lt Shoulder G/E 3 vw (09/13/2011 9:49 AM CDT) Anatomical Region Laterality Modality Left Shoulder Left Other Specimen (Source) Anatomical Collection Method Collection Time Re ceived Time Location / / Volume Laterality 09/13/2011 9:49 AM CDT Impressions 09/13/2011 3:40 PM CDT SHOULDER THREE OR MORE VIEWS LEFT ??Sep 13, 2011 9:49 AM HISTORY: Pain in shoulder. IMPRESSION: Moderate degenerative change s at the acromioclavicular joint. Otherwise unremarkable exam. Virgil White DO IMG DIAGNOSTIC IMAGING ORDER SADIQ documented in this encounter Visit Diagnoses Diagnosis Subacromial or subdeltoid bursitis - Arin voss Other specified disorders of rotator cuf f syndrome of shoulder and allied disorders Pain in shoulder Pain in joint, shoulder region Prepatellar bursitis documented in this encounter Care Teams Structural Steel Ironworker Relationship Specialty Start Date End Date Ian Kendrick MD PCP - General 11/19/07 02/21/14 [facility] [address] [place] [address] documented as of this encounter
--- OUTSIDE RECORDS SUMMARY | 2022-05-15 22:38 | XMS_ITS | Encounter Summary ---
:1955 Author Organization [facility] Address [address] [place] [address] Care Team Providers Name Role Phone Ian Kendrick MD Primary Care Provider [phone] Reason for Visit Reason Onset Date Comments Refill Request 06/25/2012 ipratropium (ATROVEN T HFA) 17 MCG/ACT inhaler and beclomethasone (QVAR ) 80 MCG/ACT Inhaler Encounter Details Date Type Department Care Team Description 06/25/2012 Refill [facility] Ian Kendrick Refill Request Clinic Chhaya Daniels MD (ipratropium (ATROVENT [id number] [facility] HFA) 17 MCG/[place] [address] [facility] and becl omethasone (QVAR) [id number] [address] 80 MCG/ACT Inhaler) [phone] [place] [address] (Wo rk) Social History Tobacco [...] you attend yazidism or Patient refused 2020 gnosticist services? Do [...] Notes Telephone Encounter - Esthela Merritt - 06/29/2012 2:54 PM CST RF request for Atrovent Inhaler Ok per RN protocol x 6 mos. JENNIFER 05/27/12 Esthela Merritt RN BP Readings from Last 1 Encounters: 05/27/12 140/88 AAP date: 05/27/12 -Asthma Action Plan (AAP) on file (if not clear refer to PCP or make appt) -Encounter/OV: every 12 months -Max RF's until next OV related to diagnosis: 12months Category: Asthma & COPD/Other Medications RF request for QVAR Oral Inhaler Ok per RN protocol x 6 mos. -Asthma Action Plan (AAP) on file (if not clear refer to PCP or make appt) -Encounter/OV: every 12 months -Max RF's until next OV related to diagnosis: 12 months Category: Asthma & COPD/Oral Steroid Inhalers NESS AGENT Telephone Encounter - Wendi Lindsay - 06/25/2012 12:14 PM CST Received notice from pharmacy patient requested a refill on medication 1. ipratropium (ATROVENT HFA) 17 MCG/ACT inhaler 3 Inhaler 0 04/20/2012 Sig: Inhale 2 puffs into thelungs 4 times daily. Class: E-Prescribe Route: Inhalation. 2. beclomethasone (QVAR) 80 MCG/ACT Inhaler 3 Inhaler 0 04/20/2012 Sig: Inhale 1 puff into the lungs2 times daily. Class: E-Prescribe Route: Inhalation Last OV:05/27/12 Last Refill:04/20/12 Wendi Lindsay CMA NESS AGENT documented in this encounter Plan of Treatment Upcoming Encounters Date Type Specialty Care Team Description 05/20/2022 Lab Lab documented as of this encounter Visit Diagnoses Diagnosis Mild persistent asthma - Primary Unspecified asthma documented in this encounter Care Teams Decontamination Worker Relationship Specialty Start Date End Date Ian Kendrick MD PCP - General 11/19/07 02/21/[address] [address] documented as of this encounter
--- OUTSIDE RECORDS SUMMARY | 2022-05-15 22:38 | XMS_ITS | Encounter Summary ---
:1955 Author Organization [facility] Address [address] [place] [address] Care Team Providers Name Role Phone Ian Kendrick MD Primary Care Provider [phone] Reason for Visit Reason Comments Dizziness off and on for a month. feel better after eating. Encounter Details Date Type Department Care Team Description 05/27/2012 Office Visit [facility] Ian Kendricku e (Primary Dx); Clinic Chhaya Daniels MD Lightheadedness; [address] [facility] Nausea; [place], [place] CLINIC Mild persistent asthma [phone] [id number] [facility] [phone] [place] [address] (Wo rk) Social History Tobacco [...] you attend mandaen or Patient refused 2020 denominational services? Do [...] Sign Reading Time Taken Comments Blood Pressure 140/88 05/27/2012 3:24 PM EDUCATIONAL INTERPRETER Pulse 86 05/27/2012 3:24 PM EDUCATIONAL INTERPRETER Temperature 37.1 ??C (98.7 ??F) 05/27/2012 3:24 PM EDUCATIONAL INTERPRETER Respiratory Rate - - Oxygen Saturation 96% 05/27/2012 3:24 PM EDUCATIONAL INTERPRETER Inhaled Oxygen Concentration - - Weight 110.7 kg (244 lb) 05/27/2012 3:24 PM EDUCATIONAL INTERPRETER Height 182.9 cm (6') 05/27/2012 3:24 PM EDUCATIONAL INTERPRETER Body Mass Index 33.09 05/27/2012 3:24 PM EDUCATIONAL INTERPRETER documented in this encounter Progress Notes Ian Kendrick MD - 05/28/2012 3:37 PM CST Virgil Christine is a 56 year old male who presents for evaluation of: 1. lightheadedness - off and on x 1 month. Not vertigo type dizziness. Feels weak, fatigue, during episodes. Lasts a fwe minutes, then resolves on its own. Also feels that it he eats, his symptoms improve. Has had more nausea recently without abdominal pain. Feels more cold than usual. Also reports chills. No true fever noted. Reported to nurse earlier today that right left was more swollen, but this is secondary to recent injection in the knee and his calf following DVT is at baseline. ROS: C: NEGATIVE for fever, chills E: NEGATIVE for vision changes R: NEGATIVE for significant cough or SOB CV: NEGATIVE for chest pain, palpitations GI: NEGATIVE for abdominal pain, heartburn, or change in bowel habits (but does have constant loose stool secondary to ulcerative colitis) : NEGATIVE for frequency, dysuria, or hematuria M: NEGATIVE for significant arthralgias or myalgia N: NEGATIVE for weakness, dizziness or paresthesias or headache Problems list, allergies, social and family history, and past medical history, are all reviewed and updated in [facility]. Current Outpatient Prescriptions Medication Sig ??? albuterol (PROAIR HFA) 108 (90 BASE) MCG/ACT inhaler Inhale 1-2 puffs into the lungs every 4 hours as needed. ??? beclomethasone (QVAR) 80 MCG/ACT Inhaler Inhale 1 puff into the lungs 2 times daily. ??? Furosemide (LASIX) 20 MG tablet Take 0.5-1 tablets by mouth. Take as needed for leg swelling. ??? ipratropium (ATROVENT HFA) 17 MCG/ACT inhaler Inhale 2 puffs into the lungs 4 times daily. ??? loperamide (IMODIUM) 2 MG capsule Take 3-4 capsules by mouth 3 times daily. ??? HYDROcodone-acetaminophen (VICODIN) 5-500 MG per tablet Take 1 tablet by mouth every 6 hours as needed for pain. ??? ORDER FOR DME Closed patella knee sleeve, large ??? sildenafil (VIAGRA) 50 MG tablet Take 0.5-1 tablets by mouth daily as needed for erectile dysfunction. ??? triamcinolone (KENALOG) 0.1 % cream Apply topically 2 times daily. ??? zolpidem (AMBIEN CR) 12.5 MG CR tablet Take 1 tablet by mouth nightly as needed for sleep. ??? ORDER FOR DME RINA hose or support stocking, knee high SZ M4 30-40 mmHg OBJECTIVE: BP 140/88 Pulse 86 Temp(Src) 98.7 ??F (37.1 ??C) (Oral) Ht 6' (1.829 m) Wt 244 lb (110.678 kg) BMI 33.09 kg/m2 SpO2 96% GENERAL APPEARANCE: healthy, alert and no distress HEENT: oropharynx is unremarkable, without erythema or tonsillar hypertrophy NECK: no adenopathy, no asymmetry or masses RESP: lungs clear to auscultation - no rales, rhonchi or wheezes CV: regular rates and rhythm, normal S1 S2, no S3 or S4 and no murmur, click or rub - GI: The abdomen is soft without tenderness, guarding, mass, rebound or organomegaly. Bowel sounds are normal. NEURO: Neurological exam reveals no focal findings. Mental status and speech are normal. Alert and oriented x 3. ALEJANDRA, cranial nerves II- XII intact, muscle tone and strength normal and symmetric, reflexes normal and symmetric, gait and station normal. No cerebellar dysfunction observed. EXT: right lower extremity more edematous thatn left, at baseline. Assessment/Plan: Fatigue (primary encounter diagnosis) Comment: Plan: EKG 12-lead complete w/read - Clinics, X-ray Chest 2 vws*, CBC with platelets, Comprehensive metabolic panel, TSH with free T4 reflex, Vitamin D Deficiency, CRP inflammation unknown etiology for symptoms of fatigue, lightheadedness. Check labs for anemia, thyroid. EKG and chest x-ray were within normal limits. Also consider that symptoms could be related to hypoglycemia, nonspecfic viral infection, other. I will contact the patient regarding his results and determine the follow up plan at that time. Lightheadedness Comment: Plan: EKG 12-lead complete w/read - Clinics, X-ray Chest 2 vws*, CBC with platelets, Comprehensive metabolic panel, CRP inflammation Nausea Comment: Plan: EKG 12-lead complete w/read - Clinics, X-ray Chest 2 vws*, CBC with platelets, Comprehensive metabolic panel, UA reflex to Microscopic and Culture, CRP inflammation Mild persistent asthma Comment: Plan: Asthma Action Plan (AAP) ATIONAL INTERPRETER documented in this encounter Nursing Notes 05/27/2012 3:15 PM CST >> MARCO PAK Wed May 27, 2012 3:26 PM Patient presents with: Dizziness - off and on for a month. feel better after eating. Initial BP 140/88 Pulse 86 Temp(Src) 98.7 ??F (37.1 ??C) (Oral) Ht 6' (1.829 m) Wt 244 lb (110.678 kg) BMI 33.09 kg/m2 SpO2 96% Estimated Body mass index is 33.09 kg/(m^2) as calculated from the following: Height as of this encounter: 6' 0(1.829 m). Weight as of this encounter: 244 lb(110.678 kg).. BP completed using cuff size: large Health maintenance- aap today Marcochetan Pak CAREER DEVELOPMENT ENGINEER documented in this encounter Plan of Treatment Upcoming Encounters Date Type Specialty Care Team Description 05/20/2022 Lab Lab documented as of this encounter Procedures Procedure Name Priority Date/Time Associated Comments Diagnosis EKG 12-LEAD COMPLETE Routine 05/27/2012 4:17 PM Fatigue Results for this W/READ - CLINICS EDUCATIONAL INTERPRETER Lightheadedness procedure are in Nausea the results section. UA MACROSCOPIC WITH Routine 05/27/2012 3:58 PM Nausea Re sults for this REFLEX TO MICROSCOPIC EDUCATIONAL INTERPRETER proced ure are in AND CULTURE the results section. VITAMIN D DEFICIENCY Routine 05/27/2012 3:57 PM Fatigue R esults for this SCREENING EDUCATIONAL INTERPRETER procedure are i n the results section. TSH WITH FREE T4 Routine 05/27/2012 3:57 PM Fatigue Resul ts for this REFLEX EDUCATIONAL INTERPRETER procedure are i n the results section. CRP INFLAMMATION Routine 05/27/2012 3:57 PM Fatigue Results for this EDUCATIONAL INTERPRETER Lightheadedness procedure are in Nausea the results section. COMPREHENSIVE Routine 05/27/2012 3:57 PM Fatigue Results for this METABOLIC PANEL EDUCATIONAL INTERPRETER Lightheadedness procedure are in Nausea the results section. CBC WITH PLATELETS Routine 05/27/2012 3:57 PM Fatigue Results for this EDUCATIONAL INTERPRETER Lightheadedness procedure are in Nausea the results section. XR CHEST 2 VIEWS Routine 05/27/2012 3:56 PM Fatigue Results for this EDUCATIONAL INTERPRETER Lightheadedness procedure are in Nausea the results section. ASTHMA ACTION PLAN Routine 05/27/2012 3:16 PM Mild persistent EDUCATIONAL INTERPRETER asthma documented in this encounter Results EKG 12-lead complete w/read - Clinics (05/27/2012 4:17 PM EDUCATIONAL INTERPRETER) Narrative This result has an attachment that is no t available. Ian Kendrick MD ECG ORDERABLES UA reflex to Microscopic and Culture (05/27/2012 3:58 PM EDUCATIONAL INTERPRETER) [facility] Method Time Signature Color Urine Yellow [facility] Appearance Urine Clear [facility] Glucose Urine Negative NEG mg/dL [facility] Bilirubin Urine Negative NEG [facility] Ketones Urine Negative NEG mg/dL [facility] Specific [place] >1.030 1.003 - [place] Urine 1.035 [facility] Blood Urine Negative NEG [facility] pH Urine 5.0 5.0 - 7.0 [place] pH [facility] Protein Albumin Negative NEG mg/dL [facility] Urobilinogen 0.2 0.2 - 1.0 [place] Urine EU/dL [facility] Nitrite Urine Negative NEG [facility] Leukocyte Negative NEG [place] Esterase Urine [facility] Source Midstream [place] Urine [facility] Specimen Anatomical Collection Method Collection Time Receive d Time (Source) Location / / Volume Laterality Urine specimen 05/27/2012 3:58 PM 012 3:59 (specimen) EDUCATIONAL INTERPRETER PM EDUCATIONAL INTERPRETER Ian Kendrick MD LAB - URINE ORDERABLES Performing Organization Address City/State/ZIP Code Phon e Number [facility] [address] [place] [address] [facility] (ABNORMAL) CRP inflammation (05/27/2012 3:57 PM EDUCATIONAL INTERPRETER) Patholo gist Method Time Signature CRP Inflammation 15.8 (H) 0.0 - 8.0 [facility] mg/L [facility] Specimen Anatomical Collection Method Collection Time Receive d Time (Source) Location / / Volume Laterality Blood specimen 05/27/2012 3:57 PM 012 3:58 (specimen) EDUCATIONAL INTERPRETER PM EDUCATIONAL INTERPRETER Ian Kendrick MD LAB - BLOOD ORDERABLES Performing Organization Address City/State/ZIP Code Phon e Number [facility] [address] [place] [address] [facility] (ABNORMAL) Vitamin D Deficiency (05/27/2012 3:57 PM EDUCATIONAL INTERPRETER) P athologist Signature Vitamin D 29 (L) 30 - 75 [facility] Deficiency ug/L [facility] Comment: Season, race, dietary intake, and treatm ent affect the concentration of 96-zniozvm-Tuyxkmt D. Values may decrea se during winter months and increase during summer months. Values less than 30 ug/L may indicate Vitamin D deficiency. Vitamin D determiniation is routinely p erformed by an immunoassay specific for 25 hydroxyvitamin D3. ??If an individua l is on vitamin D2 (ergocalciferol) supplementation, please specify 25 OH v itamin D2 and D3 level determination by LCMSMS test [id number]. ??For questions, pl ease contact the laboratory at [phone]. Specimen Anatomical Collection Method Collection Time Receive d Time (Source) Location / / Volume Laterality Blood specimen 05/27/2012 3:57 PM 012 3:58 (specimen) EDUCATIONAL INTERPRETER PM EDUCATIONAL INTERPRETER Ian Kendrick MD LAB - BLOOD ORDERABLES Performing Organization Address City/State/ZIP Code Phon e Number [facility] [address] [place] [address] [facility] TSH with free T4 reflex (05/27/2012 3:57 PM EDUCATIONAL INTERPRETER) athologist Signature TSH 1.89 0.4 - 5.0 [place] [facility] Specimen Anatomical Collection Method Collection Time Receive d Time (Source) Location / / Volume Laterality Blood specimen 05/27/2012 3:57 PM 012 3:58 (specimen) EDUCATIONAL INTERPRETER PM EDUCATIONAL INTERPRETER Ian Kendrick MD LAB - BLOOD ORDERABLES Performing Organization Address City/State/ZIP Code Phon e Number [facility] [address], [place] [address] [facility] (ABNORMAL) Comprehensive metabolic panel (05/27/2012 3:57 PM EDUCATIONAL INTERPRETER) athologist Signature Sodium 137 133 - 144 [place] mmol/L [facility] Potassium 4.2 3.4 - 5.3 [place] mmol/L [facility] Chloride 102 94 - 109 [place] mmol/L [facility] Carbon Dioxide 21 20 - 32 [place] mmol/L [facility] Anion Gap 13 6 - 17 [place] mmol/L [facility] Glucose 112 (H) 60 - 99 [place] mg/dL [facility] Urea Nitrogen 19 7 - 30 [place] mg/dL [facility] Creatinine 0.79 0.66 - [facility] 1.25 mg/dL [facility] GFR Estimate >90 >60 [place] mL/min/1.7 [facility] m2 LAB GFR Estimate If >90 >60 [place] Black mL/min/1.7 [facility] m2 LAB Calcium 9.7 8.5 - 10.4 [place] mg/dL [facility] Bilirubin Total 1.0 0.2 - 1.3 [place] mg/dL [facility] Albumin 4.1 3.9 - 5.1 [place] g/dL [facility] Comment: Reference range changed on 02/22. Protein Total 7.4 6.8 - 8.8 g/dL [facility] Comment: As of 07, reference range reflects plasma specimen type. Alkaline Phosphatase 95 40 - 150 U/L [facility] ALT 45 0 - 70 U/L [facility] AST 35 0 - 45 U/L [facility] LAB Specimen Anatomical Collection Method Collection Time Receive d Time (Source) Location / / Volume Laterality Blood specimen 05/27/2012 3:57 PM 012 3:58 (specimen) EDUCATIONAL INTERPRETER PM EDUCATIONAL INTERPRETER Ian Kendrick MD LAB - BLOOD ORDERABLES Performing Organization Address City/[facility]/ZIP Code Phon e Number [facility] [address] [place] [address] [facility] CBC with platelets (05/27/2012 3:57 PM EDUCATIONAL INTERPRETER) P athologist Signature WBC 6.1 4.0 - 11.0 [place] 10e9/L [facility] RBC Count 4.87 4.4 - 5.9 [place] 10e12/L [facility] Hemoglobin 15.4 13.3 - [facility] 17.7 g/dL [facility] Hematocrit 45.1 40.0 - [facility] 53.0 % [facility] MCV 93 78 - 100 [facility] MCH 31.6 26.5 - [facility] 33.0 pg [facility] MCHC 34.1 31.5 - [facility] 36.5 g/dL [facility] RDW 12.9 10.0 - [facility] 15.0 % [facility] Platelet Count 163 150 - 450 [place] 10e9/L [facility] Specimen Anatomical Collection Method Collection Time Receive d Time (Source) Location / / Volume Laterality Blood specimen 05/27/2012 3:57 PM 012 3:58 (specimen) EDUCATIONAL INTERPRETER PM EDUCATIONAL INTERPRETER Ian Kendrick MD LAB - BLOOD ORDERABLES Performing Organization Address City/[facility]/ZIP Code Phon e Number [facility] [address] [place] [address] [facility] X-ray Chest 2 vws* (05/27/2012 3:56 PM EDUCATIONAL INTERPRETER) Anatomical Region Laterality Modality Chest Other Specimen (Source) Anatomical Collection Method Collection Time Re ceived Time Location / / Volume Laterality 05/27/2012 3:56 PM EDUCATIONAL INTERPRETER Narrative 05/28/2012 5:26 AM EDUCATIONAL INTERPRETER CHEST TWO VIEWS ??05/27/2012 3:56 PM HISTORY: ??Malaise. COMPARISON: 01/10/2008. FINDINGS: Negative chest. No interval ch joni. JONATAN AUGUST MD Procedure Note Jonatan August MD - 05/28/2012Forma tting of this note might be different from the original. CHEST TWO VIEWS 05/27/2012 3:56 PM HISTORY: Malaise. COMPARISON: 01/10/2008. FINDINGS: Negative chest. No interval ch joni. JONATAN AUGUST MD Ina Kendrick MD IMG DIAGNOSTIC IMAGING ORDER SADIQ documented in this encounter Visit Diagnoses Diagnosis Fatigue - Primary Other malaise and fatigue Lightheadedness Dizziness and giddiness Nausea Nausea alone Mild persistent asthma Unspecified asthma documented in this encounter Care Teams Clinical Pharmacist Relationship Specialty Start Date End Date Ian Kendrick MD PCP - General 11/19/07 02/21/14 [facility] [address] [place] [address] documented as of this encounter
--- OUTSIDE RECORDS SUMMARY | 2022-05-15 22:38 | XMS_ITS | Encounter Summary ---
:1955 Author Organization [facility] Address [address] [place] [address] Care Team Providers Name Role Phone Ian Kendrick MD Primary Care Provider [phone] Reason for Visit Reason Onset Date Comments Refill Request 08/27/2011 Encounter Details Date Type Department Care Team Description 08/27/2011 Refill [facility] Ian Kendrick, Refill Request Chhaya VILLASEÑOR [address] [place] [phone] [facility] [phone] [facility] [address] [address] (Wo rk) Social History Tobacco [...] you attend samaritan or Patient refused 2020 orthodoxy services? Do [...] Notes Telephone Encounter - Esthela Merritt - 08/27/2011 1:46 PM CST Pt notified- Will follow up as needed. Esthela Merritt RN EL ELASTIC OPERATOR ZIGZAG Telephone Encounter - Ian Kendrick MD - 08/27/2011 11:54 AM TUNNEL ELASTIC OPERATOR ZIGZAG prescription approved for furosemide. If no significant improvement on medication, return to clinic for further evaluation. EL ELASTIC OPERATOR ZIGZAG Telephone Encounter - Esthela Merritt - 08/27/2011 10:03 AM CST Pt requesting to refill the lasix- I think I need to add it back Pt states working out daily and just not loosing the weight. Pt states right leg is swollen and hurts it has water on the knee I am holding water on my belly, I can drink 3-4 beers at home and I don't pee once Advised pt to be seen Oh tony I was just seen and I know it's not a DVT or any thing like that Please advise. Last filled 07/04/10 Esthela Merritt RN EL ELASTIC OPERATOR ZIGZAG documented in this encounter Plan of Treatment Upcoming Encounters Date Type Specialty Care Team Description 05/20/2022 Lab Lab documented as of this encounter Visit Diagnoses Diagnosis Edema leg - Primary Edema documented in this encounter Care Teams Audio Visual Secretary Relationship Specialty Start Date End Date Ian Kendrick MD PCP - General 11/19/07 02/21/14 [facility] [address] [place] [address] documented as of this encounter
--- OUTSIDE RECORDS SUMMARY | 2022-05-15 22:38 | XMS_ITS | Encounter Summary ---
:1955 Author Organization [facility] Address [address] [place] [address] Care Team Providers Name Role Phone Ian Kendrick MD Primary Care Provider [phone] Reason for Visit Reason Onset Date Comments Patient Request for Note/Letter 06/02/2012 Encounter Details Date Type Department Care Team Description 06/02/2012 Telephone [facility] Ian Kendrick t Request for Clinic Chhaya Daniels MD Note/Letter [address] [place], [place] [address] [facility] [address] [facility] [phone] [place] [address] (Wo rk) Social History Tobacco [...] you attend advent or Patient refused 2020 roman catholic services? [...] Notes Telephone Encounter - Irma Dunaway - 06/02/2012 3:28 PM CST Patient informed. Brought to front end java developer. Irma Dunaway Physician Allergist Immunologist TABLE WASHER Telephone Encounter - Ian Kendrick MD - 06/02/2012 2:40 PM VEGETABLE WASHER Letter completed. See nurse's inbox. TABLE WASHER Telephone Encounter - Marco Pak - 06/02/2012 1:41 PM CST Pt request a letter to states needing the use of a cross bow for hunting due to shoulder arthritis. Told him if Dr. Kendrick draws up a letter he can print it off my chart. Pt states he will check my chart in a couple of days. I will start the letter. Marco Pak CMA TABLE WASHER documented in this encounter Plan of Treatment Upcoming Encounters Date Type Specialty Care Team Description 05/20/2022 Lab Lab documented as of this encounter Visit Diagnoses Not on filedocumented in this encounter Care Teams Delivery Crew Member Relationship Specialty Start Date End Date Ian Kendrick MD PCP - General 11/19/07 02/21/14 [facility] [id number] [place] [address] documented as of this encounter
--- OUTSIDE RECORDS SUMMARY | 2022-05-15 22:38 | XMS_ITS | Encounter Summary ---
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 Encounter Details Date Type Department Care Team Description 10/24/2011 Office Visit [facility] Virgil White ep icondylitis Orthopedic DO Roel (Primary Dx) [facility] [address] [facility], [address] [facility] [address] [place], [place] [address] [phone] Social History Tobacco Use Types Packs/Day Years Used Date Smoking Tobacco: Former Cigarettes Smokeless Tobacco: Never Comments: 2004 Alcohol Use Standard Drinks/Week Comments Yes 0 (1 standard drink = 0.6 oz pure alcoho l) 4 BEERS A WEEK Alcohol Habits Answer Date Recorded How often do you have a drink containing 4 or more times a w [place] 05/25/2021 alcohol? How many drinks containing [...] you attend sikh or Patient refused 2020 buddhist services? Do [...] Sign Reading Time Taken Comments Blood Pressure 124/60 10/24/2011 4:04 PM CDT Pulse - - Temperature - - Respiratory Rate - - Oxygen Saturation - - Inhaled Oxygen Concentration - - Weight 105.2 kg (232 lb) 10/24/2011 4:04 PM CDT Height 182.9 cm (6') 10/24/2011 4:04 PM CDT Body Mass Index 31.46 10/24/2011 4:04 PM CDT documented in this encounter Progress Notes Sofia Mendez - 10/24/2011 4:07 PM CDT SUBJECTIVE: PCP: Ian Kendrick MD Virgil Christine is a 55 year old male who is seen as self referral for left elbow pain. 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 Past medical history notablefor: reviewed on the up to date problem list in the chart REVIEW OF SYSTEMS: CONSTITUTIONAL:NEGATIVE for fever, chills, change in weight INTEGUMENTARY/SKIN: NEGATIVE for worrisome rashes, moles or lesions MUSCULOSKELETAL:See HPI above NEURO: NEGATIVE for weakness, dizziness or paresthesias BP 124/60 Ht 6' (1.829 m) Wt 232 lb (105.235 kg) BMI 31.47 kg/m2 EXAM: GENERAL APPEARANCE: healthy, alert and no distress GAIT: NORMAL SKIN: no suspicious lesions or rashes NEURO: normal strength and tone, sentation intact, mentation intact, speech normal PSYCH: mentation appears normal and affect normal/bright MUSCULOSKELETAL: RIGHT ELBOW: Normal exam LEFT ELBOW: Inspection: no swelling, no ecchymosis, no olecranon bursa swelling, no distal bicep tendon defect Tender: lateral epicondyle and common extensor tendon Non-tender: medial epicondyle, common flexor tendon, extensor muscle of forearm, flexor muscle of forearm, supracondylar notch, olecranon bursa, distal bicep tendon and radial head/neck Range of Motion: all normal Strength: elbow strength full Special tests: pain with resisted wrist extension, no pain with resisted middle finger extension, nopain with resisted wrist flexion, no pain with resisted supination: ASSESSMENT/PLAN: Lateral epicondylitis [726.32A] Plan: Diagnosis explained and theraputic options discussed. Recommended a theraputic cortisone injection for pain relief. After risks, benefits and complications of steroid injection were discussed with the patient he elected to proceed. Using sterile technique, the area was first prepped with betadyne and an alcohol swab. A 25 gauge needle was used to inject 6 mg Celestone and 2 cc of 1% lidocaine over the lateral epicondyle on the left. Virgil tolerated the procedure well without complications. 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 Weight as of this encounter: 232 lb(105.235 kg).. BP completed using cuff size: large Sofia Mendez ATC documented in this encounter Plan of Treatment Upcoming Encounters Date Type Specialty Care Team Description 05/20/2022 Lab Lab documented as of this encounter Procedures Procedure Name Priority Date/Time Associated Diagnosis Comme nts HC INJECTION SINGLE Routine 10/24/2011 4:44 PM CDT Lateral epi condylitis TENDON ORIGIN/INSERTION documented in this encounter Visit Diagnoses Diagnosis Lateral epicondylitis - Primary Lateral epicondylitis of elbow documented in this encounter Care Teams Anti Air Warfare Operations Officer Relationship Specialty Start Date End Date Ian Kendrick MD PCP - General 11/19/07 02/21/14 [facility] [address] [place] [address] documented as of this encounter
--- OUTSIDE RECORDS SUMMARY | 2022-05-15 22:38 | XMS_ITS | Encounter Summary ---
:1955 Author Organization [facility] Address [address] [place] [address] Care Team Providers Name Role Phone Ian Kendrick MD Primary Care Provider [phone] Reason for Visit Reason Onset Date Comments Call To Schedule Appointment 05/27/2012 Dizziness, chills, equilibrium off, concerned for DM Encounter Details Date Type Department Care Team Description 05/27/2012 Telephone [facility] Ian Kendrick Call T o Schedule Clinic Chhaya Daniels MD Appointment [address] [facility] (Dizziness, chills, [place], [place] [address] [facility] [place], [address] [address] concerned for DM) [phone] [place] [address] (Wo rk) Social History Tobacco Use Types Packs/Day Years Used Date Smoking Tobacco: Former Cigarettes Smokeless Tobacco: Never Comments: 2004 Alcohol Use Standard Drinks/Week Comments Yes 0 (1 standard drink = 0.6 oz pure alcoho l) 4 BEERS A WEEK Alcohol Habits Answer Date Recorded How often do you have a drink containing 4 or more times a w [place] 05/25/2021 alcohol? How many drinks containing alcohol [...] you attend buddhist or Patient refused 2020 scientology services? Do [...] Telephone Encounter - Ian Kendrick MD - 05/27/2012 1:56 PM FAUCETS ASSEMBLER OK to see today or can see another provider tomorrow (I'm not here ) ETS ASSEMBLER Telephone Encounter - Esthela Merritt - 05/27/2012 1:38 PM CST Pt is feeling off Pt has been having chills and dizziness. Symptoms for off and on 1-2 X week for the last month. Pt does feel like if he eats symptoms will improve. Pt is cold all the time. Pt states has increased cravings for sugar, wake at night often to take bits of donuts Right leg is swollen more often now about 1.5 X the usual Pt had blood clot in 2006 in this leg. No longer on coumadin for this. Pt states he takes lasix prn for this swelling. BP 147/92 range. Pt does not check this regularly. Pt is waiting to hear about going out of town for job within the next few days will be going to [place]. Please advise work in to PCP schedule or see another provider this week. Pt to be seen at [address] Esthela Merritt RN ETS ASSEMBLER Telephone Encounter - Homa Yao - 05/27/2012 11:45 AM CST *REFUSED FNA* Virgil feels that his equilibrium is off, he has chills, dizziness, and is concerned forDM. He would like to see Dr. Kendrick w/in the next few days as he is leaving for out of town. Pleasecall him to discuss. Thank you ETS ASSEMBLER documented in this encounter Plan of Treatment Upcoming Encounters Date Type Specialty Care Team Description 05/20/2022 Lab Lab documented as of this encounter Visit Diagnoses Not on filedocumented in this encounter Care Teams Post Acute Care Nurse Relationship Specialty Start Date End Date Ian Kendrick MD PCP - General 11/19/07 02/21/14 [facility] [address] [place] [address] documented as of this encounter
--- OUTSIDE RECORDS SUMMARY | 2022-05-15 22:38 | XMS_ITS | Encounter Summary ---
:1955 Author Organization [facility] Address [address] [place] [address] Care Team Providers Name Role Phone Ian Kendrick MD Primary Care Provider [phone] Reason for Visit Reason Onset Date Comments Other 12/16/2011 med request Encounter Details Date Type Department Care Team Description 12/16/[address] [facility] Ian Kendrick Other (med request) [facility] MD Jeremiah [address] [place] [address] [place] [address] [facility] [phone] [place] [address] (Wo rk) Social History Tobacco [...] you attend sikhism or Patient refused 2020 confucianist services? Do [...] Notes Telephone Encounter - Esthela Merritt - 12/18/2011 3:46 PM CDT Pt had had a nasty cut on my arm that I thought I might need antibiotic for, but has since healed with no issues Pt is working outside today very warm and sweaty occasionally feel nausea advised to try and get out of the heat, replace fluids with Gatorade. Pt is working in the [place] area. Pt advised to UC if vomiting or not feeling well. Rest and fluids when out of the heat. Pt states also has a bad tooth that is causing him concern. No pain or swelling at this time, just a whole that is bad pt advised to observe for pain or swelling in the mouth. Gargle with warm salt water 2-3 times a day. Pt states otherwise I am doing well Pt advised to follow up as needed. Esthela Merritt RN Telephone Encounter - Esthela Merritt - 12/16/2011 2:07 PM CDT Call from [employer] requesting refill on Amox 500 mg, LM for pt to call as to why needing. Esthela Merritt RN documented in this encounter Plan of Treatment Upcoming Encounters Date Type Specialty Care Team Description 05/20/2022 Lab Lab documented as of this encounter Visit Diagnoses Not on filedocumented in this encounter Care Teams Waybill Clerk Relationship Specialty Start Date End Date Ian Kendrick MD PCP - General 11/19/07 02/21/14 [facility] [address] [place] [address] documented as of this encounter
--- OUTSIDE RECORDS SUMMARY | 2022-05-15 22:38 | XMS_ITS | Encounter Summary ---
:1955 Author Organization [place] Address [address] [place] [address] Care Team Providers Name Role Phone Ian Kendrick MD Primary Care Provider [phone] Reason for Visit Reason Onset Date Comments Refill Request 04/16/2012 loperamide (IMODIUM) 2 MG capsule Encounter Details Date Type Department Care Team Description 04/16/2012 Refill [facility] Ian Kendrick Refill Request Clinic Chhaya Daniels MD (loperamide (IMODIUM) 2 [address] [facility] MG capsule) [place], [place] [address] [facility] [address] [facility] [phone] [place] [address] (Wo rk) Social History Tobacco [...] you attend islam or Patient refused 2020 moravian services? Do [...] Notes Telephone Encounter - Esthela Merritt - 04/16/2012 4:24 PM CDT Per RN refill protocol refilled imodium X 4 Months. Esthela Merritt RN Telephone Encounter - Carolin Dawson - 04/16/2012 3:41 PM CDT Refill request for loperamide (IMODIUM) 2 MG capsule. Can you refill? loperamide (IMODIUM) 2 MG capsule 480 capsule 12 08/09/2011 Sig: Take 3-4 capsules by mouth 3 times daily. Class: E-Prescribe Route: Oral documented in this encounter Plan of Treatment Upcoming Encounters Date Type Specialty Care Team Description 05/20/2022 Lab Lab documented as of this encounter Visit Diagnoses Diagnosis ULCERATIVE COLITIS NOS - Primary Ulcerative colitis, unspecified documented in this encounter Care Teams Avionics Safety Inspector Relationship Specialty Start Date End Date Ian Kendrick MD PCP - General 11/19/07 02/21/14 [facility] [address] [place] [address] documented as of this encounter
--- OUTSIDE RECORDS SUMMARY | 2022-05-15 22:38 | XMS_ITS | Encounter Summary ---
:1955 Author Organization [facility] Address [address] [place] [address] Care Team Providers Name Role Phone Ian Kendrick MD Primary Care Provider Reason for Referral Referral not Required - Closed Specialty Diagnoses / Procedures Referred By Contact Refer red To Contact Orthopedics and Sports Diagnoses Left shoulder pain Ian Kendrick [facility] MD Jeremiah [facility] [address] [place] [address] [facility] [address] [place] [address] Phone: [phone] Fax: [phone] Referral ID Status Reason Start Date Expiration Date Visits Requ ested Visits Authorized [id number] Closed 09/11/2011 03/09/2012 1 1 Reason for Visit Reason Onset Date Comments Other 09/11/2011 L shoulder Encounter Details Date Type Department Care Team Description 09/11/2011 Telephone [facility] Ian Kendrick Other (L shoulder) [place] [address] [place] [address] [facility] [phone] [place] [address] (Wo rk) Social History Tobacco [...] you attend rastafari or Patient refused 2020 mormon services? Do [...] Notes Telephone Encounter - Chacha Laboy - 09/11/2011 2:14 PM CDT Pt said that he would be willing to see SM. Pt was given the # [phone] for [facility]. Pt will call his insurance and see if they will cover this. Chacha Laboy RN. Telephone Encounter - Ian Kendrick MD - 09/11/2011 11:56 AM CDT He may not benefit from an injection, but I can give him a referral for an evaluation through [facility]. referral for [facility] Department Chair pended. Please approve if he would like. Telephone Encounter - Chacha Laboy - 09/11/2011 11:50 AM CDT Pt calling in with a c/o L shoulder pain. Pt denies any injury to arm or shoulder. Pt rates pain a 9/10. He lifts weights daily and has not been able to the last day because he has L shoulder pain. Pt is able top abduct his arm laterally but is not able to abduct his arm straight up. Pt sounded like he was in a hurry and just wanted this referred to Dr. Kendrick, so I was not able toadvise him all that I wanted to. IE: RICE affected area and can take Ibuprofen for pain and swelling. Pt was advised to make an appt with Dr. Kendrick and pt denied stating he was just seen last month and was wondering if he could just have a steroid injection. I told him we do not offer that at the clinic and I would refer his request to Dr. Kendrick to review. Please advise. Referral to ath med? Pt can be reached at [phone]. Chacha Laboy RN. documented in this encounter Plan of Treatment Upcoming Encounters Date Type Specialty Care Team Description 05/20/2022 Lab Lab documented as of this encounter Visit Diagnoses Diagnosis Left shoulder pain - Primary Pain in joint, shoulder region documented in this encounter Care Teams Clinical Nursing Professor Relationship Specialty Start Date End Date Ian Kendrick MD PCP - General 11/19/07 02/21/14 [facility] [address] [place] [address] documented as of this encounter
--- OUTSIDE RECORDS SUMMARY | 2022-05-15 22:38 | XMS_ITS | Encounter Summary ---
:1955 Author Organization [facility] Address [address] [place] [address] Care Team Providers Name Role Phone Ian Kendrick MD Primary Care Provider [phone] Reason for Visit Reason Onset Date Comments Nurse Advice Line 08/13/2011 lab results Encounter Details Date Type Department Care Team Description 08/13/2011 Telephone [facility] Ian Kendrick Nurse Advice Line (lab Clinic Chhaya Daniels MD results) [address] [place], [place] [address] [employer] [address] [facility] [phone] [place] [address] (Wo rk) Social History Tobacco [...] you attend scientology or Patient refused 2020 scientology services? Do [...] encounter Miscellaneous Notes Telephone Encounter - Mya Cooper - 08/13/2011 2:32 PM CST Called patient and advised of below. Patient agreed with plan. Mya Cooper RN HUNTER Telephone Encounter - Ian Kendrick MD - 08/13/2011 1:55 PM LION HUNTER cholesterol elevated, other labs normal. I will provide recommendations on cholesterol and other labs when they are all back, likely within the week. Please inform patient. HUNTER Telephone Encounter - Jessica Lee - 08/13/2011 1:51 PM CST Pt requesting 08/10/11 labs released to [employer], it looks like all are complete except testosterone. HUNTER Telephone Encounter - Carolin Dawson - 08/13/2011 12:47 PM CST Name of caller: Virgil Relationship to pt: self Reason for call: Patient saw that some of his labs are back, would like to give patient his results now or wait until everything is back. Best phone number to reach pt at is: [phone] Ok to leave a message with medical info? No HUNTER documented in this encounter Plan of Treatment Upcoming Encounters Date Type Specialty Care Team Description 05/20/2022 Lab Lab documented as of this encounter Visit Diagnoses Not on filedocumented in this encounter Care Teams Screen Writer Relationship Specialty Start Date End Date Ian Kendrick MD PCP - General 11/19/07 02/21/14 [facility] [address] [place] [address] documented as of this encounter
--- OUTSIDE RECORDS SUMMARY | 2022-05-15 22:38 | XMS_ITS | Encounter Summary ---
:1955 Author Organization [facility] Address [address] [place] [address] Care Team Providers Name Role Phone Ian Kendrick MD Primary Care Provider [phone] Reason for Visit Reason Onset Date Comments Refill Request 12/24/2011 amoxil Encounter Details Date Type Department Care Team Description 12/24/2011 Refill [facility] Ian Kendrick Refill Request (amoxil) [facility] [place] MD [place] [address] [place] [address] [place] [address] [facility] [phone] [place] [address] (Wo rk) Social History Tobacco [...] you attend jew or Patient refused 2020 episcopalian services? Do [...] Notes Telephone Encounter - Chacha Laboy - 12/24/2011 5:11 PM CDT Not needed. Spoke with ptBeatriz Laboy RN. Telephone Encounter - Elizabeth Echavarria - 12/24/2011 9:12 AM CDT [facility] requesting a refill: Amoxil 500 mg cap Sig: Take 1 cap po tid Last filled 02/06/2011 Did not see on med hx documented in this encounter Plan of Treatment Upcoming Encounters Date Type Specialty Care Team Description 05/20/2022 Lab Lab documented as of this encounter Visit Diagnoses Not on filedocumented in this encounter Care Teams Tar Pot Worker Relationship Specialty Start Date End Date Ian Kendrick MD PCP - General 11/19/07 02/21/14 [facility] [place] [address] [place] [address] documented as of this encounter
--- OUTSIDE RECORDS SUMMARY | 2022-05-15 22:38 | XMS_ITS | Encounter Summary ---
:1955 Author Organization [facility] Address [address] [place] [address] Care Team Providers Name Role Phone Ian Kendrick MD Primary Care Provider [phone] Reason for Visit Reason Comments Knee right f/u, Synsvic Encounter Details Date Type Department Care Team Description 05/26/2012 Office Visit [facility] Virgil White OA (osteoa rthritis) Orthopedic DO Roel of knee (Primary Dx) [facility] [address] [facility], [address] [facility] [address] [place] [address] [phone] Social History Tobacco Use Types Packs/Day Years Used Date Smoking Tobacco: Former Cigarettes Smokeless Tobacco: Never Comments: 2005 Alcohol Use Standard Drinks/Week Comments Yes 0 (1 standard drink = 0.6 oz pure alcoho l) 4 BEERS A WEEK Alcohol Habits Answer Date Recorded How often do you have a drink containing 4 or more times a w [place] 05/25/2021 alcohol? How many drinks containing alcohol [...] you attend buddhism or Patient refused 2020 judaism services? Do [...] Sign Reading Time Taken Comments Blood Pressure 128/84 05/26/2012 5:00 PM BALANCE ENGINEER Pulse - - Temperature - - Respiratory Rate - - Oxygen Saturation - - Inhaled Oxygen Concentration - - Weight 104.3 kg (230 lb) 05/26/2012 5:00 PM BALANCE ENGINEER Height 182.9 cm (6') 05/26/2012 5:00 PM BALANCE ENGINEER Body Mass Index 31.19 05/26/2012 5:00 PM BALANCE ENGINEER documented in this encounter Progress Notes Virgil White DO - 05/26/2012 5:06 PM CST SUBJECTIVE: May 26, 2012: PCP: Ian Kendrick Virgil Christine is a 56 year old male who is seen in follow up for right knee pain. He is interested ingetting Synvisc One injection. He met with Dr. Fonseca and plans to have surgery some time next year. BP 128/84 Ht 6' (1.829 m) Wt 230 lb (104.327 kg) BMI 31.19 kg/m2 EXAM: GENERAL APPEARANCE: healthy, alert and no distress GAIT: antalgic MUSCULOSKELETAL: not done ASSESSMENT/PLAN: OA (osteoarthritis) of knee (primary encounter diagnosis) Plan: Severe medial compartment knee OA changes. Recommend Synvisc-One injection for pain relief Plan for partial knee replacement with Dr. Andrew Fonseca in the future. After risks, benefits and complications of Synvisc-One injection were discussed with the patient he elected to proceed. Using sterile technique, the area was first prepped with betadyne and an alcohol swab. A 22 gauge needle was used to inject Synvisc-One into the knee on the right. Virgil tolerated theprocedure well without complications. NCE ENGINEER documented in this encounter Nursing Notes 05/26/2012 4:45 PM CST >> CINDY Holcomb May 26, 2012 5:07 PM Patient presents with: Knee right - f/u, Synsvic Initial BP 128/84 Ht 6' (1.829 m) Wt 230 lb (104.327 kg) BMI 31.19 kg/m2 Estimated Body mass index is 31.19 kg/(m^2) as calculated from the following: Height as of this encounter: 6' 0(1.829 m). Weight as of this encounter: 230 lb(104.327 kg).. BP completed using cuff size: large Cindy Barriga, ATC documented in this encounter Plan of Treatment Upcoming Encounters Date Type Specialty Care Team Description 05/20/2022 Lab Lab documented as of this encounter Procedures Procedure Name Priority Date/Time Associated Diagnosis Comme nts HC DRAIN/INJ MAJOR Routine 05/26/2012 5:09 PM BALANCE ENGINEER OA (osteoart hritis) of JOINT/BURSA W/O US knee documented in this encounter Visit Diagnoses Diagnosis OA (osteoarthritis) of knee - Primary Osteoarthrosis, unspecified whether gene ralized or localized, lower leg documented in this encounter Care Teams Cooky Machine Operator Relationship Specialty Start Date End Date Ian Kendrick MD PCP - General 11/19/07 02/21/14 [facility] [address] [place] [address] documented as of this encounter
--- OUTSIDE RECORDS SUMMARY | 2022-05-15 22:38 | XMS_ITS | Encounter Summary ---
:1955 Author Organization [place] Address [address] [place] [address] Care Team Providers Name Role Phone Ian Kendrick MD Primary Care Provider Reason for Visit Reason Comments Refill Request pending Cough with sore throat. x one week . Derm Problem check spots on lower right l eg. very itchy Encounter Details Date Type Department Care Team Description 04/30/2011 Office Visit [facility] Ian Kendrick Mild p ersistent asthma (Primary Dx); Clinic Chhaya Daniels MD Erectile dysfunction; [id number] [facility] Lateral epicondylitis; [place], [place] CLINIC ULCERATIVE COLITIS NOS; [phone] [address] Lichen planus [phone] [place] [address] (Wo rk) Social History Tobacco Use Types Packs/Day Years Used Date Smoking Tobacco: Former Cigarettes Comments: 2004 Alcohol Use Standard Drinks/Week Comments Yes 0 (1 standard drink = 0.6 oz pure alcoho l) 4 BEERS A WEEK Alcohol Habits Answer Date Recorded How often do you have a drink containing 4 or more times a w [place] 05/25/2021 alcohol? How many drinks containing alcohol [...] you attend anglican or Patient refused 2020 pentecostalism services? Do [...] Sign Reading Time Taken Comments Blood Pressure 122/80 04/30/2011 11:32 AM DOCUMENT REVIEWER Pulse 70 04/30/2011 11:32 AM DOCUMENT REVIEWER Temperature 37 ??C (98.6 ??F) 04/30/2011 11:32 AM DOCUMENT REVIEWER Respiratory Rate - - Oxygen Saturation 98% 04/30/2011 11:32 AM DOCUMENT REVIEWER Inhaled Oxygen Concentration - - Weight 105.4 kg (232 lb 6 oz) 04/30/2011 11:32 AM DOCUMENT REVIEWER Height 180.3 cm (5' 11) 04/30/2011 11:32 AM DOCUMENT REVIEWER Body Mass Index 32.41 04/30/2011 11:32 AM DOCUMENT REVIEWER documented in this encounter Progress Notes Ian Kendrick MD - 04/30/2011 7:32 PM CST Virgil Christine is a 55 year old male who presents for evaluation of: MILD PERSISTENT ASTHMA ERECTILE DYSFUNCTION LATERAL EPICONDYLITIS ULCERATIVE COLITIS, UNSPECIFIED MILD PERSISTENT ASTHMA LICHEN PLANUS See further discussion below on above issues. Problems list, allergies, social and family history, and past medical history, are all reviewed and updated in [facility]. Current outpatient prescriptions ordered prior to encounter: albuterol (PROAIR HFA) 108 (90 BASE) MCG/ACT inhaler Inhale 1-2 puffs into the lungs every 4 hours as needed. zolpidem (AMBIEN CR) 12.5 MG CR tablet Take 1 tablet by mouth nightly as needed for sleep. ORDER FOR DME RINA hose or support stocking, knee high SZ M4 30-40 mmHg ORDER FOR DME RINA hose or support stocking, thigh high 30-40 mmHg OBJECTIVE: BP 122/80 Pulse 70 Temp(Src) 98.6 ??F (37 ??C) (Oral) Ht 5' 11 (1.803 m) Wt 232 lb 6 oz (105.405 kg) BMI 32.41 kg/m2 SpO2 98% GENERAL APPEARANCE: healthy, alert and no distress NECK: no adenopathy, no asymmetry, masses, or scars and thyroid normal to palpation. No carotid bruits. RESP: lungs clear to auscultation - no rales, rhonchi or wheezes CV: regular rates and rhythm, normal S1 S2, no S3 or S4 and no murmur, click or rub - ABD: soft, nontender, no hepatosplenomegaly. No abdominal bruits. SKIN: Lichen planus on right lower extremity Assessment/Plan: 493.90AK Mild persistent asthma (primary encounter diagnosis) Comment: Plan: Asthma Action Plan (AAP), beclomethasone (QVAR) 80 MCG/ACT inhaler, ipratropium (ATROVENT HFA) 17 MCG/ACT inhaler, ASTHMA CONTROL TEST Symptoms are well-controlled on his current regimen. He still has significant difficulty paying forhis medications. He will try and cut down on the Qvar to once daily, and the Atrovent to one puff twice daily and see if he can still keep his asthma under control. He will contact me for further recommendations should he find a worsening of his asthma. We will try and manage this out of the clinic given his lack of insurance. 607.84D Erectile dysfunction Comment: Plan: sildenafil (VIAGRA) 50 MG tablet Patient will have a trial of Viagra for erectile dysfunction. Discussed medication use, dosing, andpossible side effects. 726.32A Lateral epicondylitis Comment: Plan: hydrocodone-acetaminophen (VICODIN) 5-500 MG per tablet Patient has used Vicodin very sparingly over the last year. 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 556.9 ULCERATIVE COLITIS NOS Comment: Plan: loperamide (IMODIUM) 2 MG capsule Patient continues to need Imodium to manage his diarrhea. He has not had any recent flares of his colitis with blood in the diarrhea or abdominal pain. 493.90AK Mild persistent asthma Comment: diagnosis of asthma vs COPD Plan: Asthma Action Plan (AAP), beclomethasone (QVAR) 80 MCG/ACT inhaler, ipratropium (ATROVENT HFA) 17 MCG/ACT inhaler, ASTHMA CONTROL TEST as above 697.0 Lichen planus Comment: Plan: triamcinolone (KENALOG) 0.1 % cream 2 areas on his right zacarias which appear consistent with lichen planus. He describes an itch scratch cycle. Patient will call or return to clinic prn if these symptoms worsen or fail to improve as anticipated. MENT REVIEWER documented in this encounter Nursing Notes 04/30/2011 11:30 AM CST >> MARCO Holcomb Apr 30, 2011 11:38 AM Patient presents with: Refill Request - pending Cough - with sore throat. x one week. Derm Problem - check spots on lower right leg. very itchy Initial BP 122/80 Pulse 70 Temp(Src) 98.6 ??F (37 ??C) (Oral) Ht 5' 11 (1.803 m) Wt 232 lb 6 oz (105.405 kg) BMI 32.41 kg/m2 SpO2 98% Estimated Body mass index is 32.41 kg/(m^2) as calculated from the following: Height as of this encounter: 5' 11(1.803 m). Weight as of this encounter: 232 lb 6 oz(105.405 kg).. BP completed using cuff size: large Health maintenance- AAP and act today. Marco Pak HIGH SCALER documented in this encounter Plan of Treatment Upcoming Encounters Date Type Specialty Care Team Description 05/20/2022 Lab Lab documented as of this encounter Procedures Procedure Name Priority Date/Time Associated Diagnosis Comme nts ASTHMA ACTION PLAN Routine 04/30/2011 11:28 AM DOCUMENT REVIEWER Mild persis tent asthma documented in this encounter Visit Diagnoses Diagnosis Mild persistent asthma - Primary Unspecified asthma Erectile dysfunction Impotence of organic origin Lateral epicondylitis Lateral epicondylitis of elbow ULCERATIVE COLITIS NOS Ulcerative colitis, unspecified Lichen planus documented in this encounter Care Teams Plateman Relationship Specialty Start Date End Date Ian Kendrick MD PCP - General 11/19/07 02/21/14 [facility] [address] [place] [address] documented as of this encounter
--- OUTSIDE RECORDS SUMMARY | 2022-05-15 22:38 | XMS_ITS | Encounter Summary ---
:1955 Author Organization [place] Address [facility] [place] [address] Care Team Providers Name Role Phone Ian Kendrick MD Primary Care Provider [phone] Reason for Referral Referral not Required - Closed Specialty Diagnoses / Procedures Referred By Contact Refer red To Contact Diagnoses Osteoarthritis Knee pain Virgil White DO [facility] [address] [place] [address] [address] [place], [place] [phone] Phone: [phone] Fax: Referral ID Status Reason Start Date Expiration Date Visits Requ ested Visits Authorized [id number] Closed 03/23/2012 09/19/2012 1 1 Reason for Visit Reason Comments Knee right chronic, getting worse, cloud les, worse on stairs/ steep grades, feels crack in the knee Encounter Details Date Type Department Care Team Description 03/23/2012 Office Visit [facility] Virgil White Knee pain (Primary Dx); Orthopedic DO Ro[facility] Osteoarthritis; [facility] [address] [facility], [address] [facility] [address] [place] [id number] [phone] Social History Tobacco Use Types Packs/Day Years Used Date Smoking Tobacco: Former Cigarettes Smokeless Tobacco: Never Comments: 2004 Alcohol Use Standard Drinks/Week Comments Yes 0 (1 standard drink = 0.6 oz pure alcoho l) 4 BEERS A WEEK Alcohol Habits Answer Date Recorded How often do you have a drink containing 4 or more times a w [place] 05/25/2021 alcohol? How many drinks containing [...] you attend sikh or Patient refused 2020 mandaeism services? Do [...] Sign Reading Time Taken Comments Blood Pressure 128/86 03/23/2012 9:39 AM CDT Pulse - - Temperature - - Respiratory Rate - - Oxygen Saturation - - Inhaled Oxygen Concentration - - Weight 104.3 kg (230 lb) 03/23/2012 9:39 AM CDT Height 182.9 cm (6') 03/23/2012 9:39 AM CDT Body Mass Index 31.19 03/23/2012 9:39 AM CDT documented in this encounter Progress Notes Virgil White, - 03/23/2012 10:36 AM CDT SUBJECTIVE: PCP: Ian Kendrick Marii Christine is a 56 year old male who is seen as self referral for right knee pain. Injury: Chronic, unknown cause, no recent trauma or injury Location of Pain: right knee Duration of Pain: years(s) Rating of Pain: 7/10 Pain is better with: Nothing Pain is worse with: Stairs, walking on steep incline Treatment so far consists of: Rest and Elevation Associated Features: No swelling or locking. Mild c/o instability Prior history of related problems: no previous surgical procedure Patient also notes the left elbow has recently flared up again after lifting a heavy object. He is interested in getting an injection. Patient's past medical, surgical, social and family histories reviewed. Past medical history notablefor: reviewed on the up to date problem list in the chart REVIEW OF SYSTEMS: CONSTITUTIONAL:NEGATIVE for fever, chills, change in weight BP 128/86 Ht 6' (1.829 m) Wt 230 lb (104.327 kg) BMI 31.19 kg/m2 EXAM: GENERAL APPEARANCE: healthy, alert and no distress GAIT: antalgic SKIN: no suspicious lesions or rashes NEURO: Normal strength and tone, mentation intact and speech normal PSYCH: mentation appears normal and affect normal/bright MUSCULOSKELETAL: RIGHT KNEE Inspection: genu varum, No effusion, No quad atrophy Tender: medial joint line Non-tender: lateral patellar facet, medial patellar facet, patella tendon, quadriceps insertion, MCL, LCL, lateral joint line, popliteal region Active Range of Motion: decreased flexion 115 degrees, pain with flexion, decreased extension 3-5 degrees lacking, pain with extension Strength: quad 5/5 and Hamstrings 5/5 Special tests: normal Valgus stress test, normal Varus, negative Quentin's test LEFT KNEE: Inspection: AP/lateral alignment normal Non-tender: patellar facets, MCL, LCL, lateral joint line, medial joint line, IT band, posterior knee Active Range of Motion: all normal Strength: quad 5/5, Hamstrings 5/5 Special tests: normal Valgus stress test, normal Varus, negative Quentin's test, negative posterior drawer, negative J Luis's, no apprehension with lateral stress of the patella. ASSESSMENT/PLAN: Knee pain (primary encounter diagnosis) Osteoarthritis Plan: Severe medial compartment knee OA changes. May be candidate for a partial knee replacement. Diagnosis explained and theraputic options discussed. MRI ordered for further assessment. Recommend f/ucare with Dr. Andrew Fonseca to discuss partial knee replacement options. Lateral epicondylitis Plan: Repeat a theraputic cortisone injection for pain relief. [...] tolerated the procedure well without complications. X-RAY INTERPRETATION: X-Ray of the Right Knee: 3-views [place], lateral and sunrise ordered and interpreted in the office today was positive for severe medial compartment joint space narrowing with osteophyte formation. 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 Referral Routine Osteoarthritis 04/06/2012 REFERRAL Knee pain documented as of this encounter Procedures Procedure Name Priority Date/Time Associated Diagnosis Comme nts HC INJECTION SINGLE Routine 03/23/2012 10:22 AM Lateral epicon dylitis TENDON ORIGIN/INSERTION CDT XR KNEE RIGHT 1/2 VIEWS Routine 03/23/2012 9:59 AM CDT Knee pa in XR KNEE AP STANDING Routine 03/23/2012 9:46 AM CDT Knee pain BILATERAL documented in this encounter Visit Diagnoses Diagnosis Knee pain - Primary Pain in joint, lower leg Osteoarthritis Osteoarthrosis, unspecified whether gene ralized or localized, unspecified site Lateral epicondylitis Lateral epicondylitis of elbow documented in this encounter Care Teams Material Planner Relationship Specialty Start Date End Date Ian Kendrick MD PCP - General 11/19/07 02/21/14 [facility] [address] [place] [address] documented as of this encounter
--- OUTSIDE RECORDS SUMMARY | 2022-05-15 22:38 | XMS_ITS | Encounter Summary ---
:1955 Author Organization [place] Address [address] [place] [address] Care Team Providers Name Role Phone Ian Kendrick MD Primary Care Provider [phone] Reason for Visit Reason Onset Date Comments Refill Request 10/29/2011 Encounter Details Date Type Department Care Team Description 10/29/2011 Refill [facility] Ina Kendrick, Refill Request Chhaya VILLASE[address]OR [address] [place] [address] [facility] [phone] [facility] [address] [address] (Wo rk) Social History [...] you attend mormonism or Patient refused 2020 voodoo services? Do [...] Miscellaneous Notes Telephone Encounter - PakMarco dias - 10/29/2011 12:01 PM CDT rx faxed into [facility] per pt and pt informed. Marco Pak RN OBGYN Telephone Encounter - Ian Kendrick MD - 10/29/2011 11:44 AM CDT Hard copy printed and signed. Please see nurse's inbox to fax. Please inform patient that prescription should be ready for pick-up at the pharmacy. [facility] reviewed. Last prescription lasted 3 months. Telephone Encounter - Chacha Laboy - 10/29/2011 11:15 AM CDT Spoke with pt re the refill request for: hydrocodone-acetaminophen (VICODIN) 5-500 MG per tablet 30 tablet 0 04/30/2011 Sig: Take 1 tablet by mouth every 6 hours as needed for pain. Class: Local Print Pt needs pain meds for his recently diagnosed tennis elbow and his chronic low back pain. No diagnosis listed. Pt has 4 left and they are not . Pt rates pain LBP 4/10. Elbow is better cortisone shot rates pain at a 3/10. Pt advised we normally prescribe these narcotics for moderate to severe pain. Pt is using this script for flare ups and wanted to know if Dr. Kendrick would refill. Pt also wanted to know if he needed to come into the clinic for any labs. Pt wanted Dr. Kendrick to know that the shot helped him. Will refer to Dr. Kendrick to refill if appropriate. Thanks! Notes from ov with Dr. White ASSESSMENT/PLAN: Lateral epicondylitis [726.32A] Plan: Diagnosis explained [...] Virgil tolerated the procedure well without complications. documented in this encounter Plan of Treatment Upcoming Encounters Date Type Specialty Care Team Description 05/20/2022 Lab Lab documented as of this encounter Visit Diagnoses Diagnosis Lateral epicondylitis Lateral epicondylitis of elbow Chronic low back pain Lumbago documented in this encounter Care Teams Chief Financial Officer Relationship Specialty Start Date End Date Ian Kendrick MD PCP - General 11/19/07 02/21/[address] [address] documented as of this encounter
--- OUTSIDE RECORDS SUMMARY | 2022-05-15 22:38 | XMS_ITS | Encounter Summary ---
:1955 Author Organization [facility] Address [address] [place] [address] Care Team Providers Name Role Phone Ian Kendrick MD Primary Care Provider [phone] Reason for Visit Reason Comments Foot Injury NEW, 02/13/2012, jumped down 4 feet from scaffolding and landed on grass, felt swelling and pain 3 day s later, left foot Encounter Details Date Type Department Care Team Description 02/19/2012 Office Visit [facility] Dileep Kendrick Foot inj ury (Primary Orthopedic MD Jose Dx) [facility] [address] [place], [place] [address] [facility] [address] [address] [place], [place] (Work) [phone] Social History Tobacco Use Types Packs/Day Years Used Date Smoking Tobacco: Former Cigarettes Smokeless Tobacco: Never Comments: 2005 Alcohol Use Standard Drinks/Week Comments Yes 0 (1 standard drink = 0.6 oz pure alcoho l) 4 BEERS A WEEK Alcohol Habits Answer Date Recorded How often do you have a drink containing 4 or more times a w [place] 05/25/2021 alcohol? How [...] you attend orthodoxy or Patient refused 2020 orthodoxy services? Do [...] Sign Reading Time Taken Comments Blood Pressure 130/84 02/19/2012 3:13 PM CDT Pulse - - Temperature - - Respiratory Rate - - Oxygen Saturation - - Inhaled Oxygen Concentration - - Weight 105.2 kg (232 lb) 02/19/2012 3:13 PM CDT Height 182.9 cm (6') 02/19/2012 3:13 PM CDT Body Mass Index 31.46 02/19/2012 3:13 PM CDT documented in this encounter Patient Instructions Patient InstructionsDileep Kendrick MD - 02/19/2012 3:49 PM CDT 1) Schedule MRI 2) Follow up next Friday to discuss results 3) In the interim, continue post-op shoe and/or rosa wrap for comfort documented in this encounter Progress Notes Dileep Kendrick MD - 02/19/2012 3:15 PM CDT [facility] Visit s Feb 19, 2012 Subjective: Virgil Christine is a 56 year old male who is seen as self referral for evaluation of left foot injury. Symptoms began 1 week(s) ago or 02/13/2012. Patient describes injury as jumping off of scaffolding that was approximately 4 feet tall and landing on grass. Swelling and pain developed over the subsequent 3 days. Aching pain is located dorsally and also over the 5th MT; radiation absent. Pain is 4/10 inmaximal severity, and 3/10 currently. Symptoms are generally worse with walking; better with rest. No treatments tried to date. Associated symptoms:swelling, denies numbness or tingling. He denies history of related problems. Patient works in [employer] He has an IVC filter in place, + ACLA. Patient's past medical, surgical, social and family histories are reviewed today. Medical history includes: Patient Active Problem List Diagnoses ??? ULCERATIVE COLITIS NOS ??? VENOUS THROMBOSIS NOS ??? Edema Leg ??? Anticardiolipin Antibody Positive ??? Mild persistent asthma ??? [facility] ? ? Hyperlipidemia LDL goal <160 Review of Systems: Constitutional:NEGATIVE for fever, chills, change in weight Skin: NEGATIVE for worrisome rashes, moles or lesions Neuro: NEGATIVE for weakness, dizziness or paresthesias MSK: see HPI Objective: BP 130/84 Ht 6' (1.829 m) Wt 232 lb (105.235 kg) BMI 31.47 kg/m2 General: healthy, alert and no distress Skin: no suspicious lesions or rashes Psych: mentation appears normal and affect normal/bright Neuro: Achilles DTRs 2+/symmetric. Sensory exam is within normal limits. Motor strength as noted below; no foot drop noted. Normal DP/PT pulses. MSK: LEFT FOOT Inspection: Mild diffuse soft tissue swelling through the foot. No redness, no swelling in calf. Palpation: Tender about the proximal 5th metatarsal, midshaft 5th metatarsal, cuboid, lateral cuneiform Range of Motion: Full flexion and extension of toes. Active ankle range of motion is limited by pain; passive ROM is full Strength: Full strength in intrinsic foot musculature. Ankle strength is limited in eversion Special Tests: Negative MTP stress and Lisfranc joint tenderness Imaging: Left foot x-rays (3 views, WB AP/lateral/oblique) were ordered and interpreted in the office today. Impression: negative for fracture, subluxation, joint space narrowing, or other acute osseous abnormality. ASSESSMENT: 1. Foot injury PLAN: 1) 1 week out from left foot injury after landing wrong, significant pain over the lateral aspect ofthe foot and swelling throughout the foot. XR negative but examination concerning for stress injury of the 5th metatarsal. 2) Recommended walking boot or post-op shoe but patient declines. We discussed the risk of missing astress injury in this area, in particular for it to develop into a fracture. Out of concern for compliance, MRI was ordered to further evaluate - if positive, will need to be diligent about protected weight-bearing. 3) Follow up 2-3 days after test to discuss results. In the interim, relative rest, ice, compression, and elevation. Acetaminophen as needed for pain. Dileep Kendrick MD, [facility] documented in this encounter Nursing Notes 02/19/2012 3:00 PM CDT >> Sofia Mendez Wed Feb 19, 2012 3:17 PM Patient presents with: Foot Injury - NEW, 02/13/2012, jumped down 4 feet from scaffolding and landed on grass, felt swelling and pain 3 days later, left foot Initial BP 130/84 Ht 6' (1.829 m) Wt 232 lb [...] Type Priority Associated Diagnoses Date/Ti me X-ray lt Foot G/E 3 vws* Imaging Routine Foot injury 3:53 PM CDT documented as of this encounter Procedures Procedure Name Priority Date/Time Associated Diagnosis Comme nts XR FOOT LEFT G/E 3 Routine 02/19/2012 3:53 PM CDT Foot injury VIEWS documented in this encounter Visit Diagnoses Diagnosis Foot injury - Primary Injury, other and unspecified, knee, leg , ankle, and foot documented in this encounter Care Teams Vp Sales Relationship Specialty Start Date End Date Ian Kendrick MD PCP - General 11/19/07 02/21/[address] [address] documented as of this encounter
--- OUTSIDE RECORDS SUMMARY | 2022-05-15 22:38 | XMS_ITS | Encounter Summary ---
:1955 Author Organization [place] Address [address] [place] [address] Care Team Providers Name Role Phone Ian Kendrick MD Primary Care Provider [phone] Reason for Visit Reason Comments Consult low testosterone. Encounter Details Date Type Department Care Team Description 08/09/2011 Office Visit [facility] Ian Kendricku e; Clinic Chhaya Daniels MD Erectile dysfunction; [address] [facility] Screening cholesterol level; [place], [place] CLINIC Hyperlipidemia LDL goal <130; [phone] [address] [facility] Joint pain; [phone] ULCERATIVE COLITIS NOS; [place], [place] Mild persi stent asthma; [address] Mild persistent asthma Social History Tobacco Use Types Packs/Day Years [...] you attend gnosticism or Patient refused 2020 jainism services? Do [...] Sign Reading Time Taken Comments Blood Pressure 132/78 08/09/2011 2:09 PM WAFER MACHINE OPERATOR Pulse 72 08/09/2011 2:09 PM WAFER MACHINE OPERATOR Temperature 36.7 ??C (98.1 ??F) 08/09/2011 2:09 PM WAFER MACHINE OPERATOR Respiratory Rate - - Oxygen Saturation 99% 08/09/2011 2:09 PM WAFER MACHINE OPERATOR Inhaled Oxygen Concentration - - Weight 109.5 kg (241 lb 5 oz) 08/09/2011 2:09 PM WAFER MACHINE OPERATOR Height 180.3 cm (5' 11) 08/09/2011 2:09 PM WAFER MACHINE OPERATOR Body Mass Index 33.66 08/09/2011 2:09 PM WAFER MACHINE OPERATOR documented in this encounter Progress Notes Ian Kendrick MD - 08/09/2011 5:22 PM CST Virgil Christine is a 55 year old male who presents for evaluation of: 1. fatigue - Patient has concerns about low testosterone based on what he saw on a TV had. He has known erectile dysfunction, also complains of some fatigue and muscle weakness. Does not have low libido. 2. cholesterol - history of low HDL in the past. Due for recheck. He is not fasting today. 3. JOINT PAIN - Patient describes periodic large joint pain related to activity. No erythema warmth or swelling with the joint pain. He is able to lift weights regularly despite the pain. 4. ULCERATIVE COLITIS, UNSPECIFIED - patient manages his colitis symptoms with daily Imodium. No significant change in symptoms. 5. MILD PERSISTENT ASTHMA - Patient has been taking his asthma medications regularly now that he hasinsurance. Asthma symptoms have been much better controlled. .Problems list, allergies, social and family history, and past medical history, are all reviewed andupdated in [facility]. Current outpatient prescriptions Medication Sig ??? sildenafil (VIAGRA) 50 MG tablet Take 0.5-1 tablets by mouth daily as needed for erectile dysfunction. ??? loperamide (IMODIUM) 2 MG capsule Take 3-4 capsules by mouth 3 times daily. ??? beclomethasone (QVAR) 80 MCG/ACT inhaler Inhale 1 puff into the lungs 2 times daily. ??? ipratropium (ATROVENT HFA) 17 MCG/ACT inhaler Inhale 2 puffs into the lungs 4 times daily. ??? albuterol (PROAIR HFA) 108 (90 BASE) MCG/ACT inhaler Inhale 1-2 puffs into the lungs every 4 hours as needed. ??? hydrocodone-acetaminophen (VICODIN) 5-500 MG per tablet Take 1 tablet by mouth every 6 hours as needed for pain. ??? triamcinolone (KENALOG) 0.1 % cream Apply topically 2 times daily. ??? zolpidem (AMBIEN CR) 12.5 MG CR tablet Take 1 tablet by mouth nightly as needed for sleep. ??? ORDER FOR DME RINA hose or support stocking, knee high SZ M4 30-40 mmHg ??? ORDER FOR DME RINA hose or support stocking, thigh high 30-40 mmHg OBJECTIVE: BP 132/78 Pulse 72 Temp(Src) 98.1 ??F (36.7 ??C) (Oral) Ht 5' 11 (1.803 m) Wt 241 lb 5 oz (109.459 kg) BMI 33.66 kg/m2 SpO2 99% GENERAL APPEARANCE: healthy, alert and no distress NECK: no adenopathy, no asymmetry, masses, or scars and thyroid normal to palpation. No carotid bruits. RESP: lungs clear to auscultation - no rales, rhonchi or wheezes CV: regular rates and rhythm, normal S1 S2, no S3 or S4 and no murmur, click or rub - ABD: soft, nontender, no hepatosplenomegaly. No abdominal bruits. EXT: No cyanosis, clubbing, swelling or edema in lower extremities. Assessment/Plan: 780.79B Fatigue Comment: Plan: Testosterone total, Sex hormone binding globulin, TSH with free T4 reflex, Comprehensive metabolic panel, CBC with platelets Check for low testosterone. Future orders placed. I will contact the patient regarding his results and determine the follow up plan at that time. 605.95D Erectile dysfunction Comment: Plan: sildenafil (VIAGRA) 50 MG tablet, Testosterone total, Sex hormone binding globulin, Comprehensive metabolic panel V77.91A Screening cholesterol level Comment: Plan: Lipid panel reflex to direct LDL return to clinic for fasting labs 272.4CK Hyperlipidemia LDL goal <130 Comment: Plan: Lipid panel reflex to direct LDL 719.40A Joint pain Comment: Plan: His joint pains sound like they're more consistent with overuse injury and osteoarthritis rather than autoimmune or inflammatory arthritis. Given the multiple other issues we discussed today, I recommended he followup on this later if it is still bothering him. Patient also had a prepatellar bursitis and was given a handout with exercise and care instructions. 556.9 ULCERATIVE COLITIS NOS Comment: Plan: loperamide (IMODIUM) 2 MG capsule Refilled. 493.90AK Mild persistent asthma Comment: Plan: beclomethasone (QVAR) 80 MCG/ACT inhaler, ipratropium (ATROVENT HFA) 17 MCG/ACT inhaler, albuterol (PROAIR HFA) 108 (90 BASE) MCG/ACT inhaler well controlled, continue current regimen. 493.90AK Mild persistent asthma Comment: diagnosis of asthma vs COPD Plan: beclomethasone (QVAR) 80 MCG/ACT inhaler, ipratropium (ATROVENT HFA) 17 MCG/ACT inhaler, albuterol (PROAIR HFA) 108 (90 BASE) MCG/ACT inhaler R MACHINE OPERATOR documented in this encounter Nursing Notes 08/09/2011 2:00 PM CST >> MARCO Bishop Aug 09, 2011 2:11 PM Patient presents with: Consult - low testosterone. Initial BP 132/78 Pulse 72 Temp(Src) 98.1 ??F (36.7 ??C) (Oral) Ht 5' 11 (1.803 m) Wt 241 lb 5 oz (109.459 kg) BMI 33.66 kg/m2 SpO2 99% Estimated Body mass index is 33.66 kg/(m^2) as calculated from the following: Height as of this encounter: 5' 11(1.803 m). Weight as of this encounter: 241 lb 5 oz(109.459 kg).. BP completed using cuff size: large Health maintenance- up to date. Marco Pak ENTER[employer]ISE SOLUTIONS ARCHITECT \ documented in this encounter Plan of Treatment Upcoming Encounters Date Type Specialty Care Team Description 05/20/2022 Lab Lab documented as of this encounter Visit Diagnoses Diagnosis Fatigue Other malaise and fatigue Erectile dysfunction Impotence of organic origin Screening cholesterol level Screening for lipoid disorders Hyperlipidemia LDL goal <130 Other and unspecified hyperlipidemia Joint pain Pain in joint, site unspecified ULCERATIVE COLITIS NOS Ulcerative colitis, unspecified Mild persistent asthma Unspecified asthma documented in this encounter Care Teams Glassworker Relationship Specialty Start Date End Date Ian Kendrick MD PCP - General 11/19/07 02/21/14 [place] [address] [place] [address] documented as of this encounter
--- OUTSIDE RECORDS SUMMARY | 2022-05-15 22:38 | XMS_ITS | Encounter Summary ---
:1955 Author Organization [facility] Address [address] [place] [address] Care Team Providers Name Role Phone Ian Kendrick MD Primary Care Provider [phone] Reason for Visit Reason Onset Date Comments Medication Request 02/27/2012 abx Encounter Details Date Type Department Care Team Description 02/27/2012 Telephone [facility] Ian Kendrick Medica tion Request [facility] MD Jeremiah (abx ) [address] [place] [address] [place] [phone] [facility] [phone] [place] [address] (Wo rk) Social History Tobacco Use Types Packs/Day Years Used Date Smoking Tobacco: Former Cigarettes Smokeless Tobacco: Never Comments: 2005 Alcohol Use Standard Drinks/Week Comments Yes 0 (1 standard drink = 0.6 oz pure alcoho l) 4 BEERS A WEEK Alcohol Habits Answer Date Recorded How often do you have a drink containing 4 or more times a w [place] 05/25/2021 alcohol? How many drinks containing alcohol [...] attend oriental orthodox or Patient refused 2020 taoism services? Do [...] this encounter Miscellaneous Notes Telephone Encounter - Jessica Lee - 02/27/2012 9:37 AM CDT Fx received from pharm, pt requesting abx for abscesed tooth. Called pt and got vm, left msg he should probably see dentist for x-rays and treatment. Advised call clinic if needs appt. documented in this encounter Plan of Treatment Upcoming Encounters Date Type Specialty Care Team Description 05/20/2022 Lab Lab documented as of this encounter Visit Diagnoses Not on filedocumented in this encounter Care Teams Clothing Consultant Relationship Specialty Start Date End Date Ian Kendrick MD PCP - General 11/19/07 02/21/14 [facility] [address] [place] [address] documented as of this encounter
--- OUTSIDE RECORDS SUMMARY | 2022-05-15 22:39 | XMS_ITS | Encounter Summary ---
:1955 Author Organization [place] [facility] Address [address] [place] [address] Care Team Providers Name Role Phone Ian Kendrick MD Primary Care Provider [phone] Reason for Visit Reason Comments Recheck Medication needed precription update Encounter Details Date Type Department Care Team Description 04/18/2010 Office Visit [facility] Ian Kendrick Mild p ersistent asthma (Primary Dx); Clinic Chhaya Daniels MD ULCERATIVE COLITIS NOS; [address] [facility] VENOUS THROMBOSIS NOS; [place], [place] CLINIC Lateral epicondylitis; [phone] [address] [facility] Erectile dysfunction; [phone] [place] [address] (Wo rk) Social History Tobacco [...] you attend restoration or Patient refused 2020 sabianism services? Do [...] Sign Reading Time Taken Comments Blood Pressure 112/84 04/18/2010 11:57 AM CDT Pulse 84 04/18/2010 11:57 AM CDT Temperature 37.1 ??C (98.7 ??F) 04/18/2010 11:57 AM CDT Respiratory Rate 18 04/18/2010 11:57 AM CDT Oxygen Saturation 98% 04/18/2010 11:57 AM CDT Inhaled Oxygen Concentration - - Weight 105 kg (231 lb 6.4 oz) 04/18/2010 11:57 AM CDT Height 180.3 cm (5' 11) 04/18/2010 11:57 AM CDT Body Mass Index 32.27 04/18/2010 11:57 AM CDT documented in this encounter Progress Notes Ian Kendrick - 04/18/2010 2:33 PM CDT Virgil Christine is a 54 year old male who presents for evaluation of: Here in [place] a few weeks, lives in [place] for the next 6 months, then returning to [place] permanently (plan) OTHER DYSPNEA AND RESPIRATORY ABNORMALITY UNSPECIFIED ULCERATIVE COLITIS EMBOLISM AND THROMBOSIS OF UNSPECIFIED SITE LATERAL EPICONDYLITIS ERECTILE DYSFUNCTION INSOMNIA See below for details. Problems list, allergies, social and family history, and past medical history, are all reviewed and updated in [facility]. Current outpatient prescriptions ordered prior to encounter: ORDER FOR DME medical compression stockings - Sigvaris, size M4 FUROSEMIDE 20 MG OR TABS 1/2 to 1 TABLET DAILY as needed for leg swelling LOMOTIL 2.5-0.025 MG/5ML OR LIQD 1-2 TEASPOONFUL 4 TIMES DAILY NEEDED OBJECTIVE: BP 112/84 Pulse 84 Temp(Src) 98.7 ??F (37.1 ??C) (Oral) Resp 18 Ht 1.803 m (5' 11) Wt 104.962 kg (231 lb 6.4 oz) SpO2 98% GENERAL APPEARANCE: healthy, alert and [...] nontender, no hepatosplenomegaly. No abdominal bruits. EXT: chronic lower extremity edema in right leg, improved over previously. vhoh-jf-[id number] localized, nonerythematous swelling over lateral epicondyle. smooth and full range of motion, without locking. tenderness just distal to the lateral epicondyle. Pain is exacerbated by supination of the forearm and extending the wrist against resistance. Assessment/Plan: 493.90AK Mild persistent asthma (primary encounter diagnosis) Comment: diagnosis of asthma vs COPD Plan: ipratropium (ATROVENT HFA) 17 MCG/ACT inhaler, beclomethasone (QVAR) 80 MCG/ACT inhaler, Albuterol Sulfate (PROAIR HFA) 108 (90 BASE) MCG/ACT AERS well controlled, continue current regimen. Reviewed ACT and Asthma Action Plan with patient. 556.9 ULCERATIVE COLITIS NOS Comment: Plan: loperamide (IMODIUM) 2 MG capsule symptoms stable. continue loperamide as recommended by Gastroenterology. 453.9 VENOUS THROMBOSIS NOS Comment: Plan: ORDER FOR DME, ORDER FOR DME Hematology in [place] has advised the patient he can go off of warfarin now. He has been off for quite some time. seek medical attention as soon as possible if signs and symptoms of DVT or PE develop 726.32A Lateral epicondylitis Comment: Plan: hydrocodone-acetaminophen (VICODIN) 5-500 MG per tablet Handout given with care instructions.. recommended Physical Therapy or referral to Sports Medicine if symptoms do not improve as anticipated. Vicodin to be used sporadically for pain. 607.84D Erectile dysfunction Comment: Plan: sildenafil (VIAGRA) 50 MG tablet He is reassured that erectile dysfunction is very common. Viagra and similar medications are certainly effective and generally safe, but expensive and usually not covered by insurance. Side effects are discussed. Discussed correlation or erectile dysfunction with heart disease, and importance of contr olling his modifiable risk factors. He is not using nitrates. Brief sexual counseling is provided. The proper use is discussed. He will return for specific follow up of this problem as needed if symptoms persist or he doesn't respond to the medication. 780.52A Insomnia Comment: Plan: zolpidem (AMBIEN CR) 12.5 MG CR tablet Due to bowel urgency - he often has difficulty sleeping through the night. We discussed risks and benefits of zolpidem, potential for habit forming. Spent greater than 50% of 25 minutes of nxok-xl-khgb time counseling patient and/or coordinating care regarding above issues. documented in this encounter Nursing Notes 04/18/2010 11:30 AM CDT >> BRENDAN RIVERSNG FriApr 18, 2010 12:00 PM Patient presents with: Recheck Medication - needed precription update Initial BP 112/84 Pulse 84 Temp(Src) 98.7 ??F (37.1 ??C) (Oral) Resp 18 Ht 1.803 m (5' 11) Wt 104.962 kg (231 lb 6.4 oz) SpO2 98% Estimated Body mass index is 32.27 kg/(m^2) as calculated from the following: Height as of this encounter: 5' 11(1.803 m). Weight as of this encounter: 231 lb 6.4 oz(104.962 kg).. BP completed using cuff size: large right arm lanh ma documented in this encounter Plan of Treatment Upcoming Encounters Date Type Specialty Care Team Description 05/20/2022 Lab Lab documented as of this encounter Procedures Procedure Name Priority Date/Time Associated Diagnosis Comme nts ASTHMA ACTION PLAN Routine 04/18/2010 2:46 PM CDT Insomnia documented in this encounter Visit Diagnoses Diagnosis Mild persistent asthma - Primary Unspecified asthma ULCERATIVE COLITIS NOS Ulcerative colitis, unspecified VENOUS THROMBOSIS NOS Embolism and thrombosis of unspecified s ite Lateral epicondylitis Lateral epicondylitis of elbow Erectile dysfunction Impotence of organic origin Insomnia Insomnia, unspecified documented in this encounter Care Teams Die Welder Relationship Specialty Start Date End Date Ian Kendrick MD PCP - General 11/19/07 02/21/14 [facility] [address] [place] [address] documented as of this encounter
--- OUTSIDE RECORDS SUMMARY | 2022-05-15 22:39 | XMS_ITS | Encounter Summary ---
:1955 Author Organization [facility] Address [address] [place] [address] Care Team Providers Name Role Phone Ian Kendrick MD Primary Care Provider [phone] Reason for Visit Reason Onset Date Comments Refill Request 04/19/2011 immodium Encounter Details Date Type Department Care Team Description 04/19/2011 Refill [facility] Ian Kendrick Refill Request [facility] MD Jeremiah (immodium) [address] [place] [address] [place] [phone] [facility] [phone] [place] [address] (Wo rk) Social History Tobacco Use Types Packs/Day Years Used Date Smoking Tobacco: Former Cigarettes Comments: 2004 Alcohol Use Standard Drinks/Week Comments Yes 0 (1 standard drink = 0.6 oz pure alcoho l) 4 BEERS A WEEK Alcohol Habits Answer Date Recorded How often do you have a drink containing 4 or more times a w [place] 05/25/2021 alcohol? How many drinks containing alcohol [...] you attend yazidi or Patient refused 2020 church services? Do [...] Notes Telephone Encounter - Mya Cooper - 04/19/2011 9:48 AM CDT Received request for imodium refill 04-18-11 from [facility] in [place]. Medication was last filled 04-11-11 to [facility] in [place]. Per 04-11-11 phone encounter medication was [facility], [facility]. Called [facility], states med never picked-up, cancelled via phone. Called [facility], ok'd refill via phone. Mya Cooper RN documented in this encounter Plan of Treatment Upcoming Encounters Date Type Specialty Care Team Description 05/20/2022 Lab Lab documented as of this encounter Visit Diagnoses Diagnosis ULCERATIVE COLITIS NOS Ulcerative colitis, unspecified documented in this encounter Care Teams Candy Cutter Hand Relationship Specialty Start Date End Date Ian Kendrick MD PCP - General 11/19/07 02/21/14 [facility] [address] [place] [address] documented as of this encounter
--- OUTSIDE RECORDS SUMMARY | 2022-05-15 22:39 | XMS_ITS | Encounter Summary ---
:1955 Author Organization [place] Address [address] [place] [address] Care Team Providers Name Role Phone Ian Kendrick MD Primary Care Provider [phone] Reason for Visit Reason Onset Date Comments Orders 04/20/2009 [employer] Assistance Encounter Details Date Type Department Care Team Description 04/20/2009 Telephone [facility] Ian Kendrick Orders ([facility] Morrison MD Jeremiah Assistance) [address] [place] [address] [place] [phone] [facility] [phone] [place] [address] (Wo rk) Social History Tobacco [...] this encounter Miscellaneous Notes Telephone Encounter - Shelly Davis - 04/24/2009 10:04 AM CST [facility] at . Form sent to abstract. Shelly Davis RN TER HELPER SPRAY Telephone Encounter - Ian Kendrick - 04/21/2009 2:57 PM CDT Form completed. See nurse's inbox. Telephone Encounter - Shelly Davis - 04/20/2009 8:38 AM CDT Received fax for [employer] [facility] for Qvar. Form Started. Please review and sign. Placed on Dr. Kendrick's desk. Shelly Davis RN documented in this encounter Plan of Treatment Upcoming Encounters Date Type Specialty Care Team Description 05/20/2022 Lab Lab documented as of this encounter Visit Diagnoses Not on filedocumented in this encounter Care Teams Ditch Rider Relationship Specialty Start Date End Date Ian Kendrick MD PCP - General 11/19/07 02/21/[address] [address] documented as of this encounter
--- OUTSIDE RECORDS SUMMARY | 2022-05-15 22:39 | XMS_ITS | Encounter Summary ---
:1955 Author Organization [facility] Address [address] [place] [address] Care Team Providers Name Role Phone Ian Kendrick MD Primary Care Provider [phone] Reason for Visit Reason Onset Date Comments Patient Request 03/16/2009 Questions about qvar Encounter Details Date Type Department Care Team Description 03/16/2009 Telephone [facility] Ian Kendrick Paticarlo t Request [facility] Riversandee Daniels MD (Questions about qvar) [address] [place], [place] [address] [facility] [phone] [facility] [phone] [place] [address] (Wo rk) Social History Tobacco Use Types Packs/Day Years Used Date Smoking Tobacco: Former Cigarettes Comments: 2004 Alcohol Use Standard Drinks/Week Comments Yes 0 (1 standard drink = 0.6 oz pure alcoho l) 4 BEERS A WEEK Alcohol Habits Answer Date Recorded How often do you have a drink containing 4 or more times a w [place] 05/25/2021 alcohol? How many drinks containing [...] you attend cheondoism or Patient refused 2020 restoration services? Do [...] this encounter Miscellaneous Notes Telephone Encounter - Hazel Jj - 03/22/2009 3:13 PM CDT Called into [facility] at . [facility] advised patient needs to reapply to program. Patient notified. Patient verbalized understanding. Hazel Jj RN Telephone Encounter - Hazel Jj - 03/21/2009 5:52 PM CDT Teva program Telephone Encounter - Aubrie Worrell - 03/21/2009 2:36 PM CDT Virgil called with number to get Qvar. Please call [phone]. DL 03-21@2:36pm Telephone Encounter - Hazel Jj - 03/21/2009 1:36 PM CDT Staff Message copied by HAZEL JJ on FriMar 21, 2009 1:36 PM ------ Message from: RABIA MUNOZ Created: FriMar 16, 2009 4:25 PM Regarding: medication Contact: Bernardo Bravo. Called wants to know if his Qvar has been ordered yet. Svitlana Camarillo Telephone Encounter - Hazel Jj - 03/16/2009 4:37 PM CDT Staff Message copied by HAZEL JJ on FriMar 16, 2009 4:37 PM ------ Message from: RABIA MUNOZ Created: FriMar 16, 2009 4:25 PM Regarding: medication Contact: Hazel, Bernardo. Called wants to know if his Qvar has been ordered yet. Thanks Rabia Telephone Encounter - Hazel Jj - 03/16/2009 3:47 PM CDT Attempted to call patient x 2. Both Attempts the phone rings and sends to a fax machine type noise. Unable to leave message. Hazel Jj RN Telephone Encounter - Hazel Jj - 03/16/2009 3:46 PM CDT Staff Message copied by HAZEL JJ on FriMar 16, 2009 3:46 PM ------ Message from: AUBRIE WORRELL Created: FriMar 16, 2009 10:33 AM Regarding: Phone Message/Mireille Contact: Virgil would like to speak to Hazel about getting is Qvar ordered. Please call him at [phone]. DL 03-16@10:34am documented in this encounter Plan of Treatment Upcoming Encounters Date Type Specialty Care Team Description 05/20/2022 Lab Lab documented as of this encounter Visit Diagnoses Not on filedocumented in this encounter Care Teams Home Security Alarm Installer Relationship Specialty Start Date End Date Ian Kendrick MD PCP - General 11/19/07 02/21/14 [facility] [address] [place] [address] documented as of this encounter
--- OUTSIDE RECORDS SUMMARY | 2022-05-15 22:39 | XMS_ITS | Encounter Summary ---
:1955 Author Organization [place] Address [address] [place] [address] Care Team Providers Name Role Phone Ian Kendrick MD Primary Care Provider [phone] Reason for Visit Reason Onset Date Comments Refill Request 09/25/2009 Encounter Details Date Type Department Care Team Description 09/25/2009 Refill [facility] Ian Kendrick, Refill Request Chhaya VILLASEÑOR [address] [place] [address] [facility] [phone] [facility] N [address] (Wo rk) Social History [...] you attend islam or Patient refused 2020 methodist services? Do [...] Notes Telephone Encounter - Shelly Davis - 09/26/2009 10:38 AM CDT Rx faxed to Larry in [place] at . Unable to leave message at number provided. Would ring then stop and start making another funny noise will await for patient to return my call. Kei WHITE Telephone Encounter - Ian Kendrick - 09/25/2009 5:06 PM CDT prescription approved for Lomotil. Sent in a prescription for cyclobenzaprine, but am not confident this will provide sufficient relief. I might recommend Physical Therapy, but that would also be expensive without insurance. Trial of cyclobenzaprine and let me know how it is going. 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 Pain feels ocassionally sharp pain. Constant with sudden turn sharp pain noted. No numbness no tingling. Real Sharp pain stabbing. Pain started last Friday(times one week). Currently seeing chiropractor for this with minimal relief. Patient does not have health insurance currently. Rx for Lomotil also needed. Can you do this. Patient has not seen anotherprovider yet. Unable to get one due to no insurance. Patient requesting Muscle relaxant and r Cell phone: [phone] documented in this encounter Plan of Treatment Upcoming Encounters Date Type Specialty Care Team Description 05/20/2022 Lab Lab documented as of this encounter Visit Diagnoses Diagnosis ULCERATIVE COLITIS NOS - Primary Ulcerative colitis, unspecified Back pain Backache, unspecified documented in this encounter Care Teams Digital Marketing Specialist Relationship Specialty Start Date End Date Ian Kendrick MD PCP - General 11/19/07 02/21/14 [facility] [address] [facility] [place] [address] documented as of this encounter
--- OUTSIDE RECORDS SUMMARY | 2022-05-15 22:39 | XMS_ITS | Encounter Summary ---
:1955 Author Organization [place] Address [address] [place] [address] Care Team Providers Name Role Phone Ian Kendrick MD Primary Care Provider [phone] Encounter Details Date Type Department Care Team Description 06/02/2009 Results Only [facility] Houston Tyler MD Hospital Results ID ONCOLOGY HEM ATOLOGY [address] [place], [place] [address] (Wo rk) Social History Tobacco Use Types [...] you attend confucianism or Patient refused 2020 mormonism services? Do [...] Name Priority Date/Time Associated Diagnosis Comme nts ZZC RT DUPLEX Routine 06/02/2009 10:13 AM Results for this EXTREM VENOUS,UNI PIANO BENCH ASSEMBLER procedure are in OR LTD the results section. documented in this encounter Results RT DUPLEX EXTREM VENOUS,UNI OR LTD (06/02/2009 10:13 AM PIANO BENCH ASSEMBLER) Anatomical Region Laterality Modality Other Specimen (Source) Anatomical Collection Method Collection Time Re ceived Time Location / / Volume Laterality 06/02/2009 10:13 AM PIANO BENCH ASSEMBLER Impressions 06/02/2009 2:30 PM PIANO BENCH ASSEMBLER ULTRASOUND VENOUS LOWER EXTREMITY UNILAT ERAL RIGHT ??Jun 02, 2009 10:13 AM HISTORY: Deep vein thrombosis right lowe r extremity, pulmonary embolism. Followup. COMPARISON: Lower extremity doppler ultr asound 12/13/2008. FINDINGS: The deep veins in the right lo wer extremity demonstrate residual thrombus in the femoral vein. T hrombus is no longer evident in the popliteal or posterior tibial vei ns. Minimal clot is also noted within the right common femoral vein. Th e clot appears nonocclusive. IMPRESSION: Slight improvement in appear ance of the right lower extremity DVT. Tibial veins and poplitea l vein are now free of intraluminal thrombus. There is persiste nt clot in the femoral vein and common femoral vein. Uriel Tyler MD SPECIAL IMAGING STUDIES documented in this encounter Visit Diagnoses Not on filedocumented in this encounter Care Teams Fac Engineer Relationship Specialty Start Date End Date Ian Kendrick MD PCP - General 11/19/07 02/21/14 [place] [address] [place] [address] documented as of this encounter
--- OUTSIDE RECORDS SUMMARY | 2022-05-15 22:39 | XMS_ITS | Encounter Summary ---
:1955 Author Organization [place] Address [address] [place] [address] Care Team Providers Name Role Phone Ian Kendrick MD Primary Care Provider [phone] Reason for Visit Reason Onset Date Comments Refill Request 11/21/2010 Ambien Encounter Details Date Type Department Care Team Description 11/21/2010 Refill [facility] Ian Kendrick Refill Request (Ambien) [facility] MD Jeremiah [address] [place], [place] 38[address] [facility] [address] [facility] [phone] [place] [address] (Wo rk) Social History Tobacco Use Types Packs/Day Years Used Date Smoking Tobacco: Former Cigarettes Comments: 2004 Alcohol Use Standard Drinks/Week Comments Yes 0 (1 standard drink = 0.6 oz pure alcoho l) 4 BEERS A WEEK Alcohol Habits Answer Date Recorded How often do you have a drink containing 4 or more times a w [place] 05/25/2021 alcohol? How many drinks containing [...] you attend druze or Patient refused 2020 islam services? Do [...] Notes Telephone Encounter - Irma Dunaway - 11/22/2010 8:43 AM CDT [facility] Placed in black folder. Irma Dunaway Chemical Dependency Attendant Telephone Encounter - Chacha Laboy - 11/21/2010 12:01 PM CDT Does not meet standard requirement for RN refill protocol. Refill request is for Ambien Last OV:04/18/2010 Last refill:zolpidem (AMBIEN CR) 12.5 MG CR tablet 30 tablet 0 04/18/2010 Sig: Take 1 tablet by mouth nightly as needed for sleep. Please refill if appropriate. Thanks! Chacha Laboy RN. documented in this encounter Plan of Treatment Upcoming Encounters Date Type Specialty Care Team Description 05/20/2022 Lab Lab documented as of this encounter Visit Diagnoses Diagnosis Insomnia - Primary Insomnia, unspecified documented in this encounter Care Teams Pulp Drier Relationship Specialty Start Date End Date Ian Kendrick MD PCP - General 11/19/07 02/21/14 [facility] [address] [place] [address] documented as of this encounter
--- OUTSIDE RECORDS SUMMARY | 2022-05-15 22:39 | XMS_ITS | Encounter Summary ---
:1955 Author Organization [place] Address [address] [place] [address] Care Team Providers Name Role Phone Ian Kendrick MD Primary Care Provider [phone] Encounter Details Date Type Department Care Team Description 06/06/2009 [facility] Results [place] [address] (Wo rk) Social History Tobacco Use Types [...] you attend muslim or Patient refused 2020 bahai services? Do [...] Priority Date/Time Associated Diagnosis Comme nts HC COLON BARIUM Routine 06/06/2009 11:00 AM Resul ts for this ENEMA WWO KUB WHIZZER OPERATOR procedure are in the results section. documented in this encounter Results X-RAY COLON CONTRAST (06/06/2009 11:00 AM WHIZZER OPERATOR) Anatomical Region Laterality Modality Other Specimen (Source) Anatomical Collection Method Collection Time Re ceived Time Location / / Volume Laterality 06/06/2009 11:00 AM WHIZZER OPERATOR Impressions 06/06/2009 9:15 PM WHIZZER OPERATOR WATER-SOLUBLE ENEMA ??Jun 06, 2009 11:01 :00 AM HISTORY: ??Status post colectomy with te rminal ileum pouch. Abdominal bloating. FINDINGS: ??A small red rubber catheter was placed into the pouch and water-soluble contrast material instille d. The pouch fills in the expected manner. There is no leakage or obstruction and contrast freely flows in a retrograde fashion thr ough a large amount of the small bowel. Peristalsis is noted throug hout the visualized small bowel. IMPRESSION: ??No evidence for obstructio n, leakage or other complication. Findings discussed with Dr Beatriz Westbrook. Esa Westbrook MD SPECIAL IMAGING STUDIES documented in this encounter Visit Diagnoses Not on filedocumented in this encounter Care Teams Firearms Sales Associate Relationship Specialty Start Date End Date Ian Kendrick MD PCP - General 11/19/07 02/21/14 [facility] [address] [place] [address] documented as of this encounter
--- OUTSIDE RECORDS SUMMARY | 2022-05-15 22:39 | XMS_ITS | Encounter Summary ---
:1955 Author Organization [place] Address [address] [place] [address] Care Team Providers Name Role Phone Ian Kendrick MD Primary Care Provider [phone] Reason for Visit Reason Onset Date Comments Form Request 04/14/2009 Teva Program Encounter Details Date Type Department Care Team Description 04/14/2009 Telephone [facility] Ian Kendrick Form R equest (Teva Clinic [place] MD Jeremiah Program) [address] [place] [address] [place] [address] [facility] [phone] [place] [address] (Wo rk) Social History Tobacco [...] you attend latter-day or Patient refused 2020 jewish services? Do [...] Notes Telephone Encounter - Shelly Davis - 04/18/2009 11:07 AM CDT Form faxed to Dain at and sent to abstract. Patient notified. Shelly Davis RN Telephone Encounter - Ian Kendrick - 04/17/2009 5:51 PM CDT Form completed. See nurse's inbox. Telephone Encounter - Aubrie Dowd - 04/17/2009 11:12 AM CDT Virgil was checking that nurse sent in the paper work. In the past, The med has been delivered to the clinic. DL 1026@11:11am Telephone Encounter - Shelly Davis - 04/14/2009 3:53 PM CDT Forms needed to be redone for patient. Forms completed. Placed on Dr. Kendrick's desk to review and sign. Shelly Davis RN documented in this encounter Plan of Treatment Upcoming Encounters Date Type Specialty Care Team Description 05/20/2022 Lab Lab documented as of this encounter Visit Diagnoses Not on filedocumented in this encounter Care Teams Train Brakeman Relationship Specialty Start Date End Date Ian Kendrick MD PCP - General 11/19/07 02/21/14 [facility] [address] [place] [address] documented as of this encounter
--- OUTSIDE RECORDS SUMMARY | 2022-05-15 22:39 | XMS_ITS | Encounter Summary ---
:1955 Author Organization [place] Address [address] [place] [address] Care Team Providers Name Role Phone Ian Kendrick MD Primary Care Provider [phone] Reason for Visit Reason Onset Date Comments Other 07/28/2009 RX for compression s tockings Encounter Details Date Type Department Care Team Description 07/28/2009 Telephone [facility] Ian Kendrick Other (RX for Clinic [place] MD Jeremiah compression stockings) [address] [place], [place] [address] [facility] [address] [facility] [phone] [place] [address] (Wo rk) Social History Tobacco [...] you attend mormonism or Patient refused 2020 jehovah's witness services? [...] Notes Telephone Encounter - Shelly Davis - 08/08/2009 10:06 AM CST Rx faxed per request. Shelly Davis RN HASE ORDER CHECKER Telephone Encounter - Ian Kendrick - 08/07/2009 5:41 PM CST Please fax hard copy of prescription to indicated pharmacy. HASE ORDER CHECKER Telephone Encounter - Tarun Rodriguez - 07/28/2009 12:08 PM CST Please see phone message below. Tarun Rodriguez RN HASE ORDER CHECKER Telephone Encounter - Tarun Rodriguez - 07/28/2009 12:07 PM PURCHASE ORDER CHECKER Staff Message copied by TARUN RODRIGUEZ on FriJul 28, 2009 12:07 PM ------ Message from: JAKOB WORRELL Created: FriJul 28, 2009 11:56 AM Regarding: Rx request/Mirelile Contact: Virgil needs an Rx for Medical Compression Stockings (thigh high) for his blood clots. His previous Rx was up to the calf. The brand was Sigvaris, size M4. Virgil is in [place]. Please send Rx [place] [facility] [place] [address]. Virgil can be reached at [phone]. DL 2-5@11:59am HASE ORDER CHECKER documented in this encounter Plan of Treatment Upcoming Encounters Date Type Specialty Care Team Description 05/20/2022 Lab Lab documented as of this encounter Visit Diagnoses Diagnosis Lower extremity edema - Primary Edema documented in this encounter Care Teams Support Technician Relationship Specialty Start Date End Date Ian Kendrick MD PCP - General 11/19/07 02/21/14 [place] [address] [place] [address] documented as of this encounter
--- OUTSIDE RECORDS SUMMARY | 2022-05-15 22:39 | XMS_ITS | Encounter Summary ---
:1955 Author Organization [facility] Address [address] [place] [address] Care Team Providers Name Role Phone Ian Kendrick MD Primary Care Provider [phone] Reason for Visit Reason Onset Date Comments Patient Request 07/04/2010 Rx for water pills Encounter Details Date Type Department Care Team Description 07/04/2010 Telephone [facility] Ian Kendrick t Request (Rx Clinic Kayceesandee Daniels MD for water pills) [address] [place], [place] 3850 [facility] [address] [facility] [phone] [place] [address] (Wo rk) Social History Tobacco Use Types Packs/Day Years Used Date Smoking Tobacco: Former Cigarettes Comments: 2004 Alcohol Use Standard Drinks/Week Comments Yes 0 (1 standard drink = 0.6 oz pure alcoho l) 4 BEERS A WEEK Alcohol Habits Answer Date Recorded How often do you have a drink containing 4 or more times a w sycuan 05/25/2021 alcohol? How many drinks containing alcohol [...] you attend rastafarian or Patient refused 2020 jainism services? Do [...] Miscellaneous Notes Telephone Encounter - Ian Kendrick - 07/06/2010 5:19 PM CST prescription approved and sent to [facility]. Please inform patient. RT HOUSEKEEPER Telephone Encounter - Aubrie Dowd - 07/06/2010 12:32 PM CST Virgil was checking the status of his Rx? RT HOUSEKEEPER Telephone Encounter - Shelly Davis - 07/04/2010 3:02 PM CST Does not meet standing order guidelines, no labs in past 6 months. Can you refill? Waiting to find pharmacy. Can I have a verbal ok to refill Furosemide. Shelly Davis RN BP Readings from Last 2 Encounters: 04/18/2010 112/84 12/12/2008 124/74 CR 0.88 01/10/2008 POTASSIUM 4.1 01/10/2008 RT HOUSEKEEPER Telephone Encounter - Aubrie Dowd - 07/04/2010 12:53 PM CST Virgil states he needs an Rx for water pills. He states Shelly will know what its called. He's reachableat [phone] after 3:00pm. He's in [place]. DL RT HOUSEKEEPER documented in this encounter Plan of Treatment Upcoming Encounters Date Type Specialty Care Team Description 05/20/2022 Lab Lab documented as of this encounter Visit Diagnoses Diagnosis Edema leg - Primary Edema documented in this encounter Care Teams Manager Employee Benefits Relationship Specialty Start Date End Date Ian Kendrick MD PCP - General 11/19/07 02/21/14 [facility] [address] [place] [address] documented as of this encounter
--- OUTSIDE RECORDS SUMMARY | 2022-05-15 22:39 | XMS_ITS | Encounter Summary ---
:1955 Author Organization [place] Address [address] [place] [address] Care Team Providers Name Role Phone Ian Kendrick MD Primary Care Provider [phone] Reason for Visit Reason Onset Date Comments Refill Request 12/12/2009 Encounter Details Date Type Department Care Team Description 12/12/2009 Refill [facility] Ian Kendrick, Refill Request Chhaya VILLASE[address]OR [address] [place] [address] [facility] [phone] [facility] [address] (Wo rk) Social History Tobacco Use Types Packs/Day Years Used Date Smoking Tobacco: Former Cigarettes Comments: 2004 Alcohol Use Standard Drinks/Week Comments Yes 0 (1 standard drink = 0.6 oz pure alcoho l) 4 BEERS A WEEK Alcohol Habits Answer Date Recorded How often do you have a drink containing 4 or more times a w eagle 05/25/2021 alcohol? How many drinks containing alcohol [...] attend oriental orthodox or Patient refused 2020 scientology services? Do [...] Notes Telephone Encounter - Shelly Davis - 12/12/2009 1:55 PM CDT Refill done. Patient currently working in [place]. Will be back in the fall to schedule a follow up appt. Patient will call to schedule an appt. Patient uses this for ULCERATIVE COLITIS. Shelly Davis RN documented in this encounter Plan of Treatment Upcoming Encounters Date Type Specialty Care Team Description 05/20/2022 Lab Lab documented as of this encounter Visit Diagnoses Diagnosis ULCERATIVE COLITIS NOS - Primary Ulcerative colitis, unspecified documented in this encounter Care Teams Auto Hauler Relationship Specialty Start Date End Date Ian Kendrick MD PCP - General 11/19/07 02/21/14 [place] [address] [place] [address] documented as of this encounter
--- OUTSIDE RECORDS SUMMARY | 2022-05-15 22:39 | XMS_ITS | Encounter Summary ---
:1955 Author Organization [facility] Address [address] [place] [address] Care Team Providers Name Role Phone Ian Kendrick MD Primary Care Provider [phone] Reason for Visit Reason Comments Flu Shot Encounter Details Date Type Department Care Team Description 03/15/2009 [facility] Flu Shot Visit [address] [address] Social History Tobacco Use [...] you attend uatsdin or Patient refused 2020 sabianist services? Do [...] documented as of this encounter Progress Notes Shelly Davis - 03/15/2009 3:01 PM CDT Injectable Influenza Immunization Documentation 1. Has the patient received the information for the injectable influenza vaccine? YES 2. Is the patient 6 months of age or older? YES 3. Does the patient have any of the following contraindications? Severe allergy to eggs? No Severe allergic reaction to previous influenza vaccines? No Allergy to contact lens solution/thimerosol? No History of Guillain-[place] syndrome? No Currently have moderate or severe illness? No 4. The vaccine has been administered and the patient was instructed to wait 15 minutes before leaving the building in the event of an allergic reaction: YES Vaccination given by Shelly Davis RN documented in this encounter Plan of Treatment Upcoming Encounters Date Type Specialty Care Team Description 05/20/2022 Lab Lab documented as of this encounter Visit Diagnoses Diagnosis Need for prophylactic vaccination and in oculation against influenza - Primary documented in this encounter Care Teams Pit Crane Operator Relationship Specialty Start Date End Date Ian Kendrick MD PCP - General 11/19/07 02/21/14 [place] [address] [place] [address] documented as of this encounter
--- OUTSIDE RECORDS SUMMARY | 2022-05-15 22:39 | XMS_ITS | Encounter Summary ---
:1955 Author Organization [facility] Address [address] [place] [address] Care Team Providers Name Role Phone Ian Kendrick MD Primary Care Provider [phone] Reason for Visit Reason Onset Date Comments Patient Request 04/05/2009 Teva Assistance Prog bon Encounter Details Date Type Department Care Team Description 04/05/2009 Telephone [facility] Ian Kendrick t Request (Teva Clinic [place] MD Jeremiah Assistance Program) [address] [place], [place] [address] [facility] [address] [facility] [phone] [place] [address] (Wo rk) Social History Tobacco Use Types Packs/Day Years Used Date Smoking Tobacco: Former Cigarettes Comments: 2004 Alcohol Use Standard Drinks/Week Comments Yes 0 (1 standard drink = 0.6 oz pure alcoho l) 4 BEERS A WEEK Alcohol Habits Answer Date Recorded How often do you have a drink containing 4 or more times a w [place] 05/25/2021 alcohol? How many drinks containing alcohol [...] you attend jew or Patient refused 2020 restorationist services? Do [...] Notes Telephone Encounter - Hazel Jj - 04/05/2009 4:30 PM CDT Teva program sent fax that states patient was denied for Teva assistance program due to patient has drug insurance. Patient notified. Left message for patient with to call Teva at . Advised patient to call with any questions. Hazel Jj RN Telephone Encounter - Hazel Jj - 04/05/2009 4:22 PM CDT Staff Message copied by HAZEL JJ on FriApr 05, 2009 4:22 PM ------ Message from: TEAGAN QUINN Created: FriApr 05, 2009 12:53 PM Regarding: sb/wondering about rx's Contact: Patient was wondering if you had a chance to do his rx's. Patient can be reach [phone]. documented in this encounter Plan of Treatment Upcoming Encounters Date Type Specialty Care Team Description 05/20/2022 Lab Lab documented as of this encounter Visit Diagnoses Not on filedocumented in this encounter Care Teams Job Forwarder Relationship Specialty Start Date End Date Ian Kendrick MD PCP - General 11/19/07 02/21/14 [facility] [address] [place] [address] documented as of this encounter
--- OUTSIDE RECORDS SUMMARY | 2022-05-15 22:39 | XMS_ITS | Encounter Summary ---
:1955 Author Organization [place] Address [address] [place] [address] Care Team Providers Name Role Phone Ian Kendrick MD Primary Care Provider [phone] Reason for Visit Reason Onset Date Comments Refill Request 04/11/2011 Encounter Details Date Type Department Care Team Description 04/11/2011 Refill [facility] Ian Kendrick, Refill Request Chhaya VILLASE[address]OR [address] [place] [address] [address] [facility] [phone] [facility] [place] [address] (Wo rk) Social History Tobacco Use [...] you attend islam or Patient refused 2020 mormonism services? Do [...] Notes Telephone Encounter - Esthela Merritt - 04/11/2011 4:43 PM CDT [facility] requesting refill for imodium 2 mg sig- 3-4 caps TID. Disp #[id number]. Pt last seen 04/18/10. Living in [place] now and without insurance. So won't make an appointment until returns to [place] in the future. OKto refill? Esthela Merritt, RN documented in this encounter Plan of Treatment Upcoming Encounters Date Type Specialty Care Team Description 05/20/2022 Lab Lab documented as of this encounter Visit Diagnoses Diagnosis ULCERATIVE COLITIS NOS Ulcerative colitis, unspecified documented in this encounter Care Teams Picking Machine Operator Relationship Specialty Start Date End Date Ian Kendrick MD PCP - General 11/19/07 02/21/14 [place] [address] [place] [address] documented as of this encounter
--- OUTSIDE RECORDS SUMMARY | 2022-05-15 22:39 | XMS_ITS | Encounter Summary ---
:1955 Author Organization [place] Address [address] [place] [address] Care Team Providers Name Role Phone Ian Kendrick MD Primary Care Provider [phone] Reason for Visit Reason Onset Date Comments Forms 03/28/2009 Teva Assistance Prog bon Encounter Details Date Type Department Care Team Description 03/28/2009 Telephone [facility] Ian Kendrick Forms (Teva Assistance Clinic [place] MD Jeremiah Program) [address] [place] [address] [place] [phone] [facility] [phone] [place] [address] (Wo rk) Social History Tobacco [...] you attend jew or Patient refused 2020 mosque services? Do [...] this encounter Miscellaneous Notes Telephone Encounter - Julianna Jj - 03/29/2009 10:03 AM CDT Form faxed to Dain at [phone] and sent to abstract. Julianna Jj RN Telephone Encounter - Paulina Soto - 03/29/2009 8:44 AM CDT Forms signed and placed on julianna's box Paulina Soto MD Telephone Encounter - Julianna Jj - 03/28/2009 4:11 PM CDT Received fax from patient for [facility] Assistance program for Enrollment application. Form filled out, placed on 's desk to review and advise to see if it can wait until Dr. Kendrick's returns from leave. Julianna Jj RN Telephone Encounter - Julianna Jj - 03/28/2009 4:07 PM CDT Staff Message copied by JULIANNA JJ on FriMar 28, 2009 4:07 PM ------ Message from: TEAGAN QUINN Created: FriMar 28, 2009 12:20 PM Regarding: sb/Teva paper work Contact: Patient would like to know the status on the Teva paper work he drop off on Friday. Please call patient at [phone]. documented in this encounter Plan of Treatment Upcoming Encounters Date Type Specialty Care Team Description 05/20/2022 Lab Lab documented as of this encounter Visit Diagnoses Not on filedocumented in this encounter Care Teams Drill Sharpener Relationship Specialty Start Date End Date Ian Kendrick MD PCP - General 11/19/07 02/21/14 [facility] [address] [place] [address] documented as of this encounter
--- OUTSIDE RECORDS SUMMARY | 2022-05-15 22:39 | XMS_ITS | Encounter Summary ---
:1955 Author Organization [place] Address [address] [place] [address] Care Team Providers Name Role Phone Ian Kendrick MD Primary Care Provider [phone] Reason for Visit Reason Onset Date Comments Other 04/09/2011 act and asthma Encounter Details Date Type Department Care Team Description 04/09/2011 Telephone [facility] Ian Kendrick Other (act and asthma) [place] [address] [place] [address] [place] [phone] [facility] [phone] [place] [address] (Wo rk) Social History Tobacco [...] you attend mu-ism or Patient refused 2020 latter day services? [...] Notes Telephone Encounter - Esthela Merritt - 04/09/2011 4:24 PM CDT Pt calling he is in [place] for work, at this time he is without insurance and has not been able to come in for appointments. Work in [place] is slow so pt is in [place] for work. Did act over the phone today score 25 no ED or hospitalizations in the last year. Pt is using the Qvar 1-2 puffs daily and Atrovent 1 puff daily I never really need the albuterol. Pt will come in for visit when he returns to [place] but is concerned about cost as the inhalers cost about 200 bucks a month Pt has tried [employer] [facility] I make too much money for that Gave him information on 30 days foundation to seek resources as well. For now he will continue meds as above and follow up when he returns. Esthela Merritt RN documented in this encounter Plan of Treatment Upcoming Encounters Date Type Specialty Care Team Description 05/20/2022 Lab Lab documented as of this encounter Visit Diagnoses Diagnosis Mild persistent asthma - Primary Unspecified asthma documented in this encounter Care Teams Program Arranger Relationship Specialty Start Date End Date Ian Kendrick MD PCP - General 11/19/07 02/21/14 [facility] [address] [place] [address] documented as of this encounter
--- OUTSIDE RECORDS SUMMARY | 2022-05-15 22:39 | XMS_ITS | Encounter Summary ---
:1955 Author Organization [place] Address [address] [place] [address] Care Team Providers Name Role Phone Ian Kendrick MD Primary Care Provider [phone] Encounter Details Date Type Department Care Team Description 01/05/2009 Historic Results INTERFACED REPORT Uriel Tyler MD [facility] TOLOGY [address] [place], [place] [address] (Wo rk) Social History Tobacco Use Types Packs/Day Years Used Date Smoking Tobacco: Former Cigarettes Comments: 2005 Alcohol Use Standard Drinks/Week Comments Yes 0 (1 standard drink = 0.6 oz pure alcoho l) 4 BEERS A WEEK Alcohol Habits Answer Date Recorded How often do you have a drink containing 4 or more times a w [place] 05/25/2021 alcohol? How many drinks containing alcohol [...] attend roman catholic or Patient refused 2020 anglican services? Do [...] Priority Date/Time Associated Comments Diagnosis INR Routine 01/05/2009 12:17 Results for this PM CDT procedure are i n the results section. PLATELET COUNT Routine 01/05/2009 12:17 Results f or this PM CDT procedure are i n the results section. PARTIAL THROMBOPLASTIN Routine 01/05/2009 12:17 R esults for this TIME PM CDT procedure are i n the results section. HEMOGLOBIN Routine 01/05/2009 12:17 Results for this PM CDT procedure are i n the results section. CREATININE Routine 01/05/2009 12:17 Results for this PM CDT procedure are i n the results section. documented in this encounter Results Creatinine (01/05/2009 12:17 PM CDT) athologist Signature Creatinine 0.74 0.66 - 1.25 [facility] mg/dL Comment: New IDMS-traceable calibration beginning 10/22/07 GFR Estimate >90 >60 mL/min/1.7m2 MISYS GFR Estimate If Black >90 >60 mL/min/1.7m2 M ISYS Specimen Anatomical Collection Method Collection Time Receive d Time (Source) Location / / Volume Laterality 01/05/2009 12:17 01/05/2009 PM CDT 12:33 PM CDT Uriel Tyler MD LAB - BLOOD ORDERABLES Performing Organization Address City/State/ZIP Code Phon e Number [facility] Hemoglobin (01/05/2009 12:17 PM CDT) athologist Signature Hemoglobin 15.8 13.3 - 17.7 [facility] g/dL Specimen Anatomical Collection Method Collection Time Receive d Time (Source) Location / / Volume Laterality 01/05/2009 12:17 01/05/2009 PM CDT 12:33 PM CDT Uriel Tyler MD LAB - BLOOD ORDERABLES Performing Organization Address City/State/ZIP Code Phon e Number MISYS Platelet count (01/05/2009 12:17 PM CDT) athologist Signature Platelet Count 182 150 - 450 [facility] 10e9/L Specimen Anatomical Collection Method Collection Time Receive d Time (Source) Location / / Volume Laterality 01/05/2009 12:17 01/05/2009 PM CDT 12:33 PM CDT Uriel Tyler MD LAB - BLOOD ORDERABLES Performing Organization Address City/State/[facility] Phon e Number MISYS (ABNORMAL) INR (01/05/2009 12:17 PM CDT) P athologist Signature INR 2.05 (H) 0.86 - 1.14 [facility] Specimen Anatomical Collection Method Collection Time Receive d Time (Source) Location / / Volume Laterality 01/05/2009 12:17 01/05/2009 PM CDT 12:52 PM CDT Uriel Tyler MD LAB - BLOOD ORDERABLES Performing Organization Address City/[facility] Phon e Number MISYS (ABNORMAL) Partial thromboplastin time (01/05/2009 12:17 PM CDT) P athologist Signature PTT 40 (H) 22 - 37 sec MISYS Specimen Anatomical Collection Method Collection Time Receive d Time (Source) Location / / Volume Laterality 01/05/2009 12:17 01/05/2009 PM CDT 12:52 PM CDT Uriel Tyler MD LAB - BLOOD ORDERABLES Performing Organization Address City/[facility] Phon e Number MISYS documented in this encounter Visit Diagnoses Not on filedocumented in this encounter Care Teams Russian Language Instructor Relationship Specialty Start Date End Date Ian Kendrick MD PCP - General 11/19/07 02/21/[address] [address] documented as of this encounter
--- OUTSIDE RECORDS SUMMARY | 2022-05-15 22:39 | XMS_ITS | Encounter Summary ---
:1955 Author Organization [place] Address [address] [place] [address] Care Team Providers Name Role Phone Ian Kendrick MD Primary Care Provider [phone] Reason for Visit Reason Onset Date Comments Refill Request 04/05/2011 Encounter Details Date Type Department Care Team Description 04/05/2011 Refill [facility] Ian Kendrick, Refill Request Chhaya V[address] [address] [place] [address] [facility] [phone] [facility] [address] (Wo rk) Social History Tobacco Use Types Packs/Day Years Used Date Smoking Tobacco: Former Cigarettes Comments: 2004 Alcohol Use Standard Drinks/Week Comments Yes 0 (1 standard drink = 0.6 oz pure alcoho l) 4 BEERS A WEEK Alcohol Habits Answer Date Recorded How often do you have a drink containing 4 or more times a w [place] 05/25/2021 alcohol? How many drinks containing [...] you attend denominational or Patient refused 2020 pentecostalism services? Do [...] Notes Telephone Encounter - Esthela Merritt - 04/05/2011 4:39 PM CDT Letter sent to pts home address to schedule appointment. Esthela Merritt RN Telephone Encounter - Froylan Louise MD - 04/05/2011 4:34 PM CDT Medications refilled. Patient needs follow-up in clinic. Please try to do ACT on phone if able. Telephone Encounter - Esthela Merritt - 04/05/2011 4:29 PM CDT Pts phone number on file is disconnected last seen in the clinic on 04/18/10 ok to refill the medications and send letter to remind pt of appointment being over due? Esthela Merritt RN documented in this encounter Plan of Treatment Upcoming Encounters Date Type Specialty Care Team Description 05/20/2022 Lab Lab documented as of this encounter Visit Diagnoses Diagnosis Mild persistent asthma - Primary Unspecified asthma documented in this encounter Care Teams Lock Corner Machine Operator Relationship Specialty Start Date End Date Ian Kendrick MD PCP - General 11/19/07 02/21/14 [place] [address] [place] [address] documented as of this encounter
--- OUTSIDE RECORDS SUMMARY | 2022-05-15 22:39 | XMS_ITS | Encounter Summary ---
:1955 Author Organization [place] Address [address] [place] [address] Care Team Providers Name Role Phone Ian Kendrick MD Primary Care Provider [phone] Reason for Visit Reason Onset Date Comments Refill Request 03/01/2010 atrashtynt Encounter Details Date Type Department Care Team Description 03/01/2010 Refill [facility] Ian Kendrick Refill Request [facility] MD Jeremiah (atrovent) [address] [place] [address] [place] [phone] [facility] [phone] [place] [address] (Wo rk) Social History Tobacco Use Types Packs/Day Years Used Date Smoking Tobacco: Former Cigarettes Comments: 2004 Alcohol Use Standard Drinks/Week Comments Yes 0 (1 standard drink = 0.6 oz pure alcoho l) 4 BEERS A WEEK Alcohol Habits Answer Date Recorded How often do you have a drink containing 4 or more times a w [place] 05/25/2021 alcohol? How many drinks containing [...] you attend yarsani or Patient refused 2020 zoroastrian services? Do [...] Notes Telephone Encounter - Shelly Davis - 03/01/2010 12:59 PM CDT Refill done. Patient currently lives in [place]. Associated Diagnoses OTHER DYSPNEA AND RESPIRATORY ABNORMALITY - Primary ?? documented in this encounter Plan of Treatment Upcoming Encounters Date Type Specialty Care Team Description 05/20/2022 Lab Lab documented as of this encounter Visit Diagnoses Diagnosis Other dyspnea and respiratory abnormalit y - Primary documented in this encounter Care Teams Cabinetmaker Supervisor Relationship Specialty Start Date End Date Ian Kendrick MD PCP - General 11/19/07 02/21/14 [place] [address] [place] [address] documented as of this encounter
--- OUTSIDE RECORDS SUMMARY | 2022-05-15 22:39 | XMS_ITS | Encounter Summary ---
:1955 Author Organization [place] Address [address] [place] [address] Care Team Providers Name Role Phone Ian Kendrick MD Primary Care Provider [phone] Reason for Visit Reason Onset Date Comments Medication Request 01/02/2010 Encounter Details Date Type Department Care Team Description 01/02/2010 Telephone [facility] Ian Kendrick [place] [address] [place] [address] [facility] [phone] [place] [address] (Wo rk) Social History Tobacco [...] you attend zoroastrianism or Patient refused 2020 congregation services? Do [...] Notes Telephone Encounter - Hazel Jj - 01/02/2010 2:58 PM CDT Patient will have roommate pickle processor medications. Medications brought to first front ventilator. Hazel Jj RN Telephone Encounter - Hazel Jj - 01/02/2010 11:10 AM CDT Message copied by HAZEL JJ on FriJan 02, 2010 11:10 AM ------ Message from: HAZEL CHRISTIANSEN Created: FriJan 02, 2010 9:54 AM Regarding: inhaler Contact: Virgil is calling today about his inhaler that was sent here?? He can be reached at [phone] documented in this encounter Plan of Treatment Upcoming Encounters Date Type Specialty Care Team Description 05/20/2022 Lab Lab documented as of this encounter Visit Diagnoses Not on filedocumented in this encounter Care Teams Journal Box Inspector Relationship Specialty Start Date End Date Ian Kendrick MD PCP - General 11/19/07 02/21/14 [facility] [address] [place] [address] documented as of this encounter
--- OUTSIDE RECORDS SUMMARY | 2022-05-15 22:39 | XMS_ITS | Encounter Summary ---
:1955 Author Organization [place] Address [address] [place] [address] Care Team Providers Name Role Phone Ian Kendrick MD Primary Care Provider [phone] Reason for Visit Reason Onset Date Comments Refill Request 03/04/2011 Ipratropium (ATROVEN T HFA) 17 MCG/ACT inhaler Encounter Details Date Type Department Care Team Description 03/04/[address] [facility] Ian Kendrick Refill Request Clinic Chhaya Daniels MD (Ipratropium (ATROVENT [address] [facility]) 17 MCG/ACT [place], [place] [address] inhaler) [address] [facility] [phone] [place] [address] (Wo rk) Social History Tobacco [...] you attend shinto or Patient refused 2020 nondenominational services? Do [...] this encounter Miscellaneous Notes Telephone Encounter - Marsha Rodriguez - 03/05/2011 2:33 PM CDT RF request for Atrovent Inhaler. Last refill 04/18/10 and last OV 04/18/10, SB for asthma. Per SO refill protocols, refills done with note to make appt to obtain additional refills. Marsha Rodriguez RN BP Readings from Last 1 Encounters: 04/18/10 112/84 AAP date:04/18/10. -Asthma Action Plan (AAP) on file within 12 months. (if not clear refer to PCP or make appt) ACT every 6 months-none noted. -Encounter/OV: every 6 months -Max RF's until next OV related to diagnosis: 12months Category: Asthma & COPD/Other Medications Telephone Encounter - Wendi Lindsay - 03/04/2011 9:36 AM CDT Received notice from pharmacy patient requested a refill on medication ipratropium (ATROVENT HFA) 17MCG/ACT inhaler 2 Inhaler 12 04/18/2010 Sig: Inhale 2 puffs into the lungs 4 times daily. Class: Normal Route: Inhalation. Last OV:04/18/2010 Last Refill:04/18/2010 Wendi Lindsay BLASTING HELPER documented in this encounter Plan of Treatment Upcoming Encounters Date Type Specialty Care Team Description 05/20/2022 Lab Lab documented as of this encounter Visit Diagnoses Diagnosis Mild persistent asthma - Primary Unspecified asthma documented in this encounter Care Teams Laboratory Cureman Relationship Specialty Start Date End Date Ian Kendrick MD PCP - General 11/19/07 02/21/14 [facility] [address] [place] [address] documented as of this encounter
--- OUTSIDE RECORDS SUMMARY | 2022-05-15 22:39 | XMS_ITS | Encounter Summary ---
:1955 Author Organization [place] Address [address] [place] [address] Care Team Providers Name Role Phone Ian Kendrick MD Primary Care Provider [phone] Reason for Visit Reason Onset Date Comments Results 06/14/2009 Encounter Details Date Type Department Care Team Description 06/14/2009 Telephone [facility] Ian Kendrick, Results Chhaya [address] [address] [place] [address] [facility] [phone] [facility] [address] [address] (Wo rk) Social History Tobacco [...] attend latter day or Patient refused 2020 muslim services? Do [...] Notes Telephone Encounter - Hazel Jj - 06/14/2009 4:41 PM CST Patient advised that he can have H1N1. Also advised patient that we have his results in the computer. Hazel Jj RN H TECHNICIAN Telephone Encounter - Hazel Jj - 06/14/2009 4:38 PM BENCH TECHNICIAN Staff Message copied by HAZEL JJ on FriJun 14, 2009 4:38 PM ------ Message from: ITZEL MUNOZ Created: FriJun 14, 2009 3:48 PM Regarding: ultrasound results Contact: thierno Bravo would like a call back about lab results. Svitlana Camarillo H TECHNICIAN documented in this encounter Plan of Treatment Upcoming Encounters Date Type Specialty Care Team Description 05/20/2022 Lab Lab documented as of this encounter Visit Diagnoses Not on filedocumented in this encounter Care Teams Assistant Production Manager Relationship Specialty Start Date End Date Ian Kendrick MD PCP - General 11/19/07 02/21/14 [facility] [address] [place] [address] documented as of this encounter
--- OUTSIDE RECORDS SUMMARY | 2022-05-15 22:39 | XMS_ITS | Encounter Summary ---
:1955 Author Organization [place] Address [address] [place] [address] Care Team Providers Name Role Phone Ian Kendrick MD Primary Care Provider [phone] Reason for Visit Reason Onset Date Comments Refill Request 01/09/2009 Imodium Encounter Details Date Type Department Care Team Description 01/09/2009 Refill [facility] Ian Kendrick Refill Request [facility] MD Jeremiah (Imodium) [address] [place] [address] [place] [phone] [facility] [phone] [place] [address] (Wo rk) Social History Tobacco [...] Notes Telephone Encounter - Shelly Davis - 01/09/2009 4:03 PM CDT Refill done for # 480 with 6 month of refills. Shelly Davis RN documented in this encounter Plan of Treatment Upcoming Encounters Date Type Specialty Care Team Description 05/20/2022 Lab Lab documented as of this encounter Visit Diagnoses Diagnosis ULCERATIVE COLITIS NOS - Primary Ulcerative colitis, unspecified documented in this encounter Care Teams Line Tender Relationship Specialty Start Date End Date Ian Kendrick MD PCP - General 11/19/07 02/21/14 [place] [address] [place] [address] documented as of this encounter
--- OUTSIDE RECORDS SUMMARY | 2022-05-15 22:39 | XMS_ITS | Encounter Summary ---
:1955 Author Organization [place] Address [address] [place] [address] Care Team Providers Name Role Phone Ian Kendrick MD Primary Care Provider [phone] Reason for Visit Reason Onset Date Comments Forms 01/20/2009 Teva Assistance Qvar Encounter Details Date Type Department Care Team Description 01/20/2009 Telephone [facility] Ian Kendrick Forms (Teva Assistance Clinic [place] MD Jeremiah Qvar) [address] [place] [address] [place] [phone] [facility] [phone] [place] [address] (Wo rk) Social History Tobacco Use Types Packs/Day Years Used Date Smoking Tobacco: Former Cigarettes Comments: 2004 Alcohol Use Standard Drinks/Week Comments Yes 0 (1 standard drink = 0.6 oz pure alcoho l) 4 BEERS A WEEK Alcohol Habits Answer Date Recorded How often do you have a drink containing 4 or more times a w [place] 05/25/2021 alcohol? How many drinks containing [...] you attend holiness or Patient refused 2020 hindu services? Do [...] Notes Telephone Encounter - Ian Kendrick - 01/20/2009 4:47 PM CDT Form completed. See nurse's inbox. Telephone Encounter - Shelly Davis - 01/20/2009 3:10 PM CDT Form for Teva Program. Placed in Dr. Kendrick's box to review and sign. Shelly Davis RN documented in this encounter Plan of Treatment Upcoming Encounters Date Type Specialty Care Team Description 05/20/2022 Lab Lab documented as of this encounter Visit Diagnoses Not on filedocumented in this encounter Care Teams Life Science Taxonomist Relationship Specialty Start Date End Date Ian Kendrick MD PCP - General 11/19/07 02/21/14 [facility] [address] [place] [address] documented as of this encounter
--- OUTSIDE RECORDS SUMMARY | 2022-05-15 22:39 | XMS_ITS | Encounter Summary ---
:1955 Author Organization [place] Address [address] [place] [address] Care Team Providers Name Role Phone Ian Kendrick MD Primary Care Provider [phone] Reason for Referral Office Workup No CT/MRI - Closed Specialty Diagnoses / Procedures Referred By Contact Refer red To Contact Diagnoses Tinnitus Ian Kendrick, [facility] [address] [facility] [address] [place] [address] [place], [place] [address] Referral ID Status Reason Start Date Expiration Date Visits Requ ested Visits Authorized [id number] Closed 02/24/2009 06/22/2011 1 1 Reason for Visit Reason Onset Date Comments Referral 02/24/2009 ENT for ringing in t he Ear. Encounter Details Date Type Department Care Team Description 02/24/2009 Telephone [facility] Ian Kendrick Referr al (ENT for Clinic [place] MD Jeremiah ringing in the Ear.) [address] [place], [place] [address] [facility] [phone] [address] [phone] [place] [address] (Wo rk) Social History Tobacco [...] you attend samaritan or Patient refused 2020 muslim services? Do [...] this encounter Miscellaneous Notes Telephone Encounter - Marco Pak - 02/24/2009 12:04 PM CDT Referral faxed to pt at [phone] per pt request. Marco Pak CMA Telephone Encounter - Ian Kendrick - 02/24/2009 11:43 AM CDT Referral created - please inform patient. Telephone Encounter - Hazel Jj - 02/24/2009 11:15 AM CDT Patient would like to have a referral for ringing in ear to ENT. Can you do or should he be seen forthis? Hazel Jj RN Telephone Encounter - Hazel Jj - 02/24/2009 11:12 AM CDT Staff Message copied by HAZEL JJ on FriFeb 24, 2009 11:12 AM ------ Message from: TEAGAN QUINN Created: FriFeb 24, 2009 10:54 AM Regarding: sb/need a referral for ENT Contact: Patient has ringing in the ears, he would like to see a ENT. Can Dr. Kendrick put in a referral for patient. Patient can be reach at [phone]. documented in this encounter Plan of Treatment Upcoming Encounters Date Type Specialty Care Team Description 05/20/2022 Lab Lab documented as of this encounter Procedures Procedure Name Priority Date/Time Associated Diagnosis Comme nts ZZ CONSULT OTOLARYNGOLOGY (ENT) Routine 03/15/2009 Tinnitus documented in this encounter Results CONSULT OTOLARYNGOLOGY (ENT) (03/15/2009) Narrative This result has an attachment that is no t available. Ian Kendrick MD REFERRAL documented in this encounter Visit Diagnoses Diagnosis Tinnitus - Primary Unspecified tinnitus documented in this encounter Care Teams Intensive Care Unit Nurse Relationship Specialty Start Date End Date Ian Kendrick MD PCP - General 11/19/07 02/21/14 [facility] [address] [place] [address] documented as of this encounter
--- OUTSIDE RECORDS SUMMARY | 2022-05-15 22:39 | XMS_ITS | Encounter Summary ---
:1955 Author Organization [place] Address [address] [place] [address] Care Team Providers Name Role Phone Ian Kendrick MD Primary Care Provider [phone] Encounter Details Date Type Department Care Team Description 03/01/[address] [facility] Ian Daniels, Occupational Health [address] Charlee VILLASEÑOR Exam Reports [facility] [address] [place] [address] [place] [address] Social History Tobacco Use Types [...] you attend anglican or Patient refused 2020 buddhist services? Do [...] on filedocumented in this encounter Care Teams Advertising Account Executive Relationship Specialty Start Date End Date Ian Kendrick MD PCP - General 11/19/07 02/21/14 [facility] [address] [place] [address] documented as of this encounter
--- OUTSIDE RECORDS SUMMARY | 2022-05-15 22:39 | XMS_ITS | Encounter Summary ---
:1955 Author Organization [place] Address [address] [place] [address] Care Team Providers Name Role Phone Ian Kendrick MD Primary Care Provider [phone] Reason for Visit Reason Onset Date Comments Consult 11/14/2010 Encounter Details Date Type Department Care Team Description 11/14/2010 Telephone [facility] Ian Kendrick, Consult Chhaya VILLASEÑOR [address] [place] [address] [facility] [phone] [facility] N [address] (Wo rk) Social History [...] you attend jain or Patient refused 2020 oriental orthodox services? [...] Notes Telephone Encounter - Chacha Laboy - 11/23/2010 10:05 AM CDT [phone]. Unable to reach pt at this #. Letter was sent to pt. Chacha Laboy RN. Telephone Encounter - Ian Kendrick MD - 11/22/2010 9:52 PM CDT He is already taking a substantial dose of Ibuprofen, I would not recommend any more on a regular basis. If he is taking that regularly, I would also recommend he consider taking a PPI (like omeprazole) to help protect his stomach from developing an ulcer or gastritis. He is also at risk of damaging his kidneys with that amount of Ibuprofen. I would recommend some labtesting on the kidneys to make sure they are OK. Just because he does not have a history of rheumatoid arthritis or other arthritis in his family, does not mean that he is safe. There are a number of blood tests we do to screen for autoimmune arthritis, but without insurance, these are likely to be expensive and unfortunately are often inconclusive. Please see what his status is and I will make further recommendations depending on his preference. Telephone Encounter - Chacha Laboy - 11/21/2010 12:09 PM CDT See previous documentation below: Pt calling with complaint of PAIN. Pt takes 800 mg Motrin in am 400 mg in afternoon and 400 mg at NOC Total of 1600 mg a day. Pain location: Joints Hip, elbow and knees. Rates pain: 6/10 in the am, then it gets better as the day goes on 4/10 wth OTC Motrin. Pain described as: dull and ache Trauma/Injury: No Onset: ongoing Pain aggravated by: the daily grind work Pain relieved by: Motrin Pt does not want to take any narcotics. Pt does not have RA or OA in his family. Pt is taking Glucosomine chondroitin 2 tablets in the am. Should he take more? Any other suggestions for him? Plan: route to PCP for review/advise Caller agrees with this plan/advise. [facility] [address] - [id number] - [place] [phone] (home) May leave medical information with voicemail / answering machine Chacha Laboy RN. Telephone Encounter - Chacha Laboy - 11/21/2010 10:55 AM CDT Attempted to call pt x2 to get additional information. LVM for pt to call back. Chacha Laboy RN. Telephone Encounter - Carolin Dawson - 11/16/2010 1:10 PM CDT Patient called back and please call him at [phone]. Carolin Dawson Cage Tender Telephone Encounter - Chacha Laboy - 11/16/2010 11:03 AM CDT Attempted to call pt to gather more info. LVM for pt to call back. Chacha Laboy RN. Telephone Encounter - Ian Kendrick MD - 11/14/2010 5:08 PM CDT out of the office , but can you call and get additional details. I will try and address Friday. Telephone Encounter - Claire Brown - 11/14/2010 2:09 PM CDT Pt called asking for some guidance with his joint pain. He has been taking OTCs for joint pain and wants to know if there are any prescriptions out there that can help him. I offered to make him an appt but pt refused due to no insurance. Pt can be reached at [phone]. Thanks! Lucila Kevin, Patient Rep. documented in this encounter Plan of Treatment Upcoming Encounters Date Type Specialty Care Team Description 05/20/2022 Lab Lab documented as of this encounter Visit Diagnoses Not on filedocumented in this encounter Care Teams Quality Process Lead Relationship Specialty Start Date End Date Ian Kendrick MD PCP - General 11/19/07 02/21/14 [facility] [address] [place] [address] documented as of this encounter
--- OUTSIDE RECORDS SUMMARY | 2022-05-15 22:39 | XMS_ITS | Encounter Summary ---
:1955 Author Organization [place] Address [address] [place] [address] Care Team Providers Name Role Phone Ian Kendrick MD Primary Care Provider [phone] Reason for Visit Reason Onset Date Comments Patient Request 02/08/2009 questions regarding Encounter Details Date Type Department Care Team Description 02/08/2009 Telephone [facility] Ian Kendrick Paticarlo t Request [facility] MD Jeremiah (questions regarding ) [address] [place], [place] [address] [facility] [address] [facility] [phone] [place] [address] (Wo rk) Social History Tobacco Use Types Packs/Day Years Used Date Smoking Tobacco: Former Cigarettes Comments: 2004 Alcohol Use Standard Drinks/Week Comments Yes 0 (1 standard drink = 0.6 oz pure alcoho l) 4 BEERS A WEEK Alcohol Habits Answer Date Recorded How often do you have a drink containing 4 or more times a w [employer] 05/25/2021 alcohol? How many drinks containing alcohol [...] you attend yarsani or Patient refused 2020 catholic services? Do [...] Notes Telephone Encounter - Hazel Jj - 02/08/2009 2:14 PM CDT Patient advised that he picked up his inhaler on 12/29/08. Hazel Jj RN Telephone Encounter - Hazel Jj - 02/08/2009 2:08 PM CDT Staff Message copied by HAZEL JJ on FriFeb 08, 2009 2:08 PM ------ Message from: TEAGAN QUINN Created: FriFeb 08, 2009 11:39 AM Regarding: sb/would like to speak with Hazel Contact: Patient would like to speak with Hazel, patient did not state why. Please call patient at [phone]. documented in this encounter Plan of Treatment Upcoming Encounters Date Type Specialty Care Team Description 05/20/2022 Lab Lab documented as of this encounter Visit Diagnoses Not on filedocumented in this encounter Care Teams Insecticide Expert Relationship Specialty Start Date End Date Ian Kendrick MD PCP - General 11/19/07 02/21/14 [facility] [address] [place] [address] documented as of this encounter
--- OUTSIDE RECORDS SUMMARY | 2022-05-15 22:39 | XMS_ITS | Encounter Summary ---
:1955 Author Organization [place] Address [address] [place] [address] Care Team Providers Name Role Phone Ian Kendrick MD Primary Care Provider [phone] Reason for Visit Reason Onset Date Comments Medication Question 07/13/2010 lasix dosage Encounter Details Date Type Department Care Team Description 07/13/2010 Telephone [facility] Ian Kendrick Medica tion Question Clinic Bright[place]andee Daniels MD (lasix dosage) [address] [place] [address] [place] [phone] [facility] [phone] [place] [address] (Wo rk) Social History Tobacco [...] you attend amish or Patient refused 2020 restorationism services? Do [...] Notes Telephone Encounter - Jessica Lee - 07/13/2010 2:50 PM CST Pt advised of msg and agrees to this plan. IN MACHINE OPERATOR Telephone Encounter - Ian Kendrick - 07/13/2010 11:48 AM CST I would advise that if he does not note any improvement, he could either continue the same dose for a few days, or could increase to 2 tabs daily. If he needs to take this for longer than a few days, or if he does not note any improvement in his symptoms, he should be seen out in [place]. IN MACHINE OPERATOR Telephone Encounter - Jessica Lee - 07/13/2010 11:14 AM CST Pt calling with med question about lasix. Advised to take 1/2 to 1 tablet daily in the am. He has taken one yesterday and one this morning, no change noted in swelling yet. He is wondering at what point if no change would he increase lasix dose, says would like to know today so won't have to call backnext week if needed. Did not give call back #, stated would call clinic back this afternoon. IN MACHINE OPERATOR documented in this encounter Plan of Treatment Upcoming Encounters Date Type Specialty Care Team Description 05/20/2022 Lab Lab documented as of this encounter Visit Diagnoses Not on filedocumented in this encounter Care Teams Completions Engineer Relationship Specialty Start Date End Date Ian Kendrick MD PCP - General 11/19/07 02/21/14 [facility] [place] [address] [place] [address] documented as of this encounter
--- OUTSIDE RECORDS SUMMARY | 2022-05-15 22:39 | XMS_ITS | Encounter Summary ---
:1955 Author Organization [place] Address [address] [place] [address] Care Team Providers Name Role Phone Ian Kendrick MD Primary Care Provider [phone] Reason for Visit Reason Onset Date Comments Patient Request 05/21/2010 zolpidem (AMBIEN CR) 12.5 MG CR tablet and hydrocodone-acetamin ophen (VICODIN) 5-500 MG per tablet Encounter Details Date Type Department Care Team Description 05/21/2010 Telephone [facility] Ian Kendrick Paticarlo t Request Clinic [place] Daniels MD (zolpidem (AMBIEN CR) [address] [facility] 12.5 MG CR tablet [place], [place] 38[address] [facility] hydrocod one-acetaminop [address] [address] hen (VICODIN) 5-500 MG [phone] [place] per tablet ) [address] (Wo rk) Social History Tobacco Use [...] you attend synagogue or Patient refused 2020 jain services? Do [...] Notes Telephone Encounter - Ian Kendrick - 05/21/2010 11:53 AM CST Pharmacy needed verification of prescriptions written on 04/18. This was not a refill encounter. APPLICATIONS COORDINATOR Telephone Encounter - Esthela Genao - 05/21/2010 11:35 AM CST Can we do this? Last OV 04-18-10 Esthela Genao RN APPLICATIONS COORDINATOR Telephone Encounter - Irma Dunaway - 05/21/2010 10:27 AM CST [facility] in [place] called and needs verbal ok for refill of zolpidem (AMBIEN CR) 12.5 MG CR tablet and hydrocodone-acetaminophen (VICODIN) 5-500 MG per tablet. Please call and message daiana looney at [phone]. APPLICATIONS COORDINATOR documented in this encounter Plan of Treatment Upcoming Encounters Date Type Specialty Care Team Description 05/20/2022 Lab Lab documented as of this encounter Visit Diagnoses Diagnosis Insomnia Insomnia, unspecified Lateral epicondylitis Lateral epicondylitis of elbow documented in this encounter Care Teams Check Totaler Relationship Specialty Start Date End Date Ian Kendrick MD PCP - General 11/19/07 02/21/14 [facility] [address] [place] [address] documented as of this encounter
--- OUTSIDE RECORDS SUMMARY | 2022-05-15 22:39 | XMS_ITS | Encounter Summary ---
:1955 Author Organization [place] Address [address] [place] [address] Care Team Providers Name Role Phone Ian Kendrick MD Primary Care Provider [phone] Reason for Visit Reason Onset Date Comments Other 11/27/2010 returning call from letter sent Encounter Details Date Type Department Care Team Description 11/27/2010 Telephone [facility] Ian Kendrick Other (returning call Clinic Chhaya Daniels MD from letter sent) [address] [place] [address] [place] [address] [facility] [phone] [place] [address] (Wo rk) Social History Tobacco Use Types Packs/Day Years Used Date Smoking Tobacco: Former Cigarettes Comments: 2004 Alcohol Use Standard Drinks/Week Comments Yes 0 (1 standard drink = 0.6 oz pure alcoho l) 4 BEERS A WEEK Alcohol Habits Answer Date Recorded How often do you have a drink containing 4 or more times a w [employer] 05/25/2021 alcohol? How many drinks containing [...] you attend advent or Patient refused 2020 protestant services? Do [...] Notes Telephone Encounter - Chacha Laboy - 11/27/2010 10:38 AM CDT Pt calling in and wanted to let us know he will make a lab appt for LFT's and kidney fx once he getsinsurance. Pt was advised to get OTC Omeprazole to help with decreasing stomach acid and protect hisstomach from LT Ibuprofen use. Pt did say he has not been taking as much Ibuprofen. He omitted 2 of the pills out of his daily medication regimen. Chacha Laboy RN. documented in this encounter Plan of Treatment Upcoming Encounters Date Type Specialty Care Team Description 05/20/2022 Lab Lab documented as of this encounter Visit Diagnoses Not on filedocumented in this encounter Care Teams Aircraft Captain Relationship Specialty Start Date End Date Ian Kendrick MD PCP - General 11/19/07 02/21/14 [facility] [address] [place] [address] documented as of this encounter
--- OUTSIDE RECORDS SUMMARY | 2022-05-15 22:40 | XMS_ITS | Encounter Summary ---
:1955 Author Organization [facility] Address [address] [place] [address] Care Team Providers Name Role Phone Ian Kendrick MD Primary Care Provider [phone] Reason for Visit Reason Comments Anticoagulation Encounter Details Date Type Department Care Team Description 10/10/2008 [facility] Anticoagulation Visit [address] [address] Social History Tobacco [...] you attend confucianist or Patient refused 2020 zoroastrianism services? Do [...] this encounter Progress Notes Shelly [place] - 10/11/2008 11:46 AM CDT ANTICOAGULATION FOLLOW-UP CLINIC VISIT Patient Name: Virgil Christine Date: 10/11/2008 SUBJECTIVE: Bleeding Signs/Symptoms: None Thromboembolic Signs/Symptoms: None Medication Changes: No Dietary Changes: No Bacterial/Viral Infection: No Missed Coumadin Doses: None Other Concerns: No ASSESSMENT/PLAN: See: ANTICOAGULATION QIC flow sheet. ANTICOAGULATION CLINIC documented in this encounter Plan of Treatment Upcoming Encounters Date Type Specialty Care Team Description 05/20/2022 Lab Lab documented as of this encounter Procedures Procedure Name Priority Date/Time Associated Diagnosis Comme nts HCL INR POCT Routine 10/10/2008 Encounter for Long-Term Resu lts for this (Current) Use of procedure a re in the Anticoagulants results secti on. 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
--- OUTSIDE RECORDS SUMMARY | 2022-05-15 22:40 | XMS_ITS | Encounter Summary ---
:1955 Author Organization [facility] Address [address] [place] [address] Care Team Providers Name Role Phone Ian Kendrick MD Primary Care Provider Reason for Visit Reason Onset Date Comments Refill Request 05/24/2008 coumadin Encounter Details Date Type Department Care Team Description 05/24/2008 Refill [facility] Ian Kendrick Refill Request Clinic [place] MD Jeremiah (coumadin) [address] [place] [address] [place] [address] [facility] [phone] [place] [address] (Wo rk) Social History Tobacco [...] this encounter Miscellaneous Notes Telephone Encounter - Yulisa Acosta - 05/24/2008 11:45 AM CST Rx filled per nursing protocol. Nadiya Acosta RN D MGR documented in this encounter Plan of Treatment Upcoming Encounters Date Type Specialty Care Team Description 05/20/2022 Lab Lab documented as of this encounter Visit Diagnoses Diagnosis VENOUS THROMBOSIS NOS - Primary Embolism and thrombosis of unspecified s ite documented in this encounter Care Teams Furniture Repair Technician Relationship Specialty Start Date End Date Ian Kendrick MD PCP - General 11/19/07 02/21/[address] [address] documented as of this encounter
--- OUTSIDE RECORDS SUMMARY | 2022-05-15 22:40 | XMS_ITS | Encounter Summary ---
:1955 Author Organization [place] Address [address] [place] [address] Care Team Providers Name Role Phone Ian Kendrick MD Primary Care Provider [phone] Reason for Visit Reason Comments Anticoagulation Encounter Details Date Type Department Care Team Description 07/28/2008 [facility] Anticoagulation Visit [address] [address] Social History Tobacco Use Types Packs/Day Years Used Date Smoking Tobacco: Former Cigarettes Comments: 2004 Alcohol Use Standard Drinks/Week Comments Yes 0 (1 standard drink = 0.6 oz pure alcoho l) 4 BEERS A WEEK Alcohol Habits Answer Date Recorded How often do you have a drink containing 4 or more times a w [place] 05/25/2021 alcohol? How many drinks containing alcohol [...] documented as of this encounter Progress Notes Mirna Lagunas - 07/28/2008 12:37 PM CST ANTICOAGULATION FOLLOW-UP CLINIC VISIT Patient Name: Virgil Christine Date: 07/28/2008 SUBJECTIVE: Bleeding Signs/Symptoms: None Thromboembolic Signs/Symptoms: None Medication Changes: No Dietary Changes: Yes - Fewer salads in past week Bacterial/Viral Infection: No Missed Coumadin Doses: None Other Concerns: No ASSESSMENT/PLAN: See: ANTICOAGULATION QIC flow sheet. LV NURSE EHOLD REFRIGERATION MECHANIC documented in this encounter Plan of Treatment Upcoming Encounters Date Type Specialty Care Team Description 05/20/2022 Lab Lab documented as of this encounter Procedures Procedure Name Priority Date/Time Associated Diagnosis Comme nts HCL INR POCT Routine 07/28/2008 Encounter for Long-Term Resu lts for this (Current) Use of procedure a re in the Anticoagulants results secti on. 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
--- OUTSIDE RECORDS SUMMARY | 2022-05-15 22:40 | XMS_ITS | Encounter Summary ---
:1955 Author Organization [facility] Address [address] [place] [address] Care Team Providers Name Role Phone Ian Kendrick MD Primary Care Provider [phone] Reason for Visit Reason Comments Anticoagulation Encounter Details Date Type Department Care Team Description 09/06/2008 [facility] Anticoagulation Visit [address] [address] Social History Tobacco Use [...] you attend rastafarian or Patient refused 2020 presybeterian services? Do [...] this encounter Progress Notes Mirna Lagunas - 09/06/2008 1:56 PM CDT ANTICOAGULATION FOLLOW-UP CLINIC VISIT Patient Name: Virgil Christine Date: 09/06/2008 SUBJECTIVE: Bleeding Signs/Symptoms: Yes - has noticed increased bleeding with cuts. Thromboembolic Signs/Symptoms: None Medication Changes: No Dietary Changes: No Bacterial/Viral Infection: Respiratory sx x 2 weeks Missed Coumadin Doses: None Other Concerns: No ASSESSMENT/PLAN: See: ANTICOAGULATION QIC flow sheet. ANTICOAGULATION CLINIC documented in this encounter Plan of Treatment Upcoming Encounters Date Type Specialty Care Team Description 05/20/2022 Lab Lab documented as of this encounter Procedures Procedure Name Priority Date/Time Associated Diagnosis Comme nts HCL INR POCT Routine 09/06/2008 Encounter for Long-Term Resu lts for this (Current) Use of procedure a re in the Anticoagulants results secti on. 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
--- OUTSIDE RECORDS SUMMARY | 2022-05-15 22:40 | XMS_ITS | Encounter Summary ---
:1955 Author Organization [place] Address [address] [place] [address] Care Team Providers Name Role Phone Ian Kendrick MD Primary Care Provider [phone] Reason for Visit Reason Comments Anticoagulation Encounter Details Date Type Department Care Team Description 12/26/2008 [facility] Anticoagulation Visit [address] [address] Social History Tobacco [...] this encounter Progress Notes Shelly [place] - 12/29/2008 9:54 AM CDT ANTICOAGULATION FOLLOW-UP CLINIC VISIT Patient Name: Virgil Christine Date: 12/29/2008 SUBJECTIVE: Bleeding Signs/Symptoms: None Thromboembolic Signs/Symptoms: None [...] Diagnosis Comme nts HCL INR POCT Routine 12/29/2008 Encounter for Long-Term Resu lts for this (Current) Use of procedure a re in the Anticoagulants results secti on. 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
--- OUTSIDE RECORDS SUMMARY | 2022-05-15 22:40 | XMS_ITS | Encounter Summary ---
:1955 Author Organization [place] Address [address] [place] [address] Care Team Providers Name Role Phone Ian Kendrick MD Primary Care Provider [phone] Encounter Details Date Type Department Care Team Description 07/07/2008 Telephone [facility] [place] [address] [place] [address]40 [facility] [phone] [facility] N [address] (Wo rk) Social History [...] you attend advent or Patient refused 2020 sikh services? Do [...] this encounter Miscellaneous Notes Telephone Encounter - Heriberto Khan - 07/07/2008 3:02 PM CST PATIENT INFORMED WE DO NOT. IC HEALTH REGISTRAR Telephone Encounter - Heriberto Khan - 07/07/2008 2:59 PM PUBLIC HEALTH REGISTRAR Staff Message copied by HERIBERTO KHAN on FriJul 07, 2008 2:59 PM ------ Message from: JAKOB WORRELL Created: FriJul 07, 2008 10:54 AM Regarding: Phone Message/Bershow Contact: Virgil was wondering if we had any Actrovent samples he could have? He can be reached at [phone]. Dl -15@11:12am IC HEALTH REGISTRAR documented in this encounter Plan of Treatment Upcoming Encounters Date Type Specialty Care Team Description 05/20/2022 Lab Lab documented as of this encounter Visit Diagnoses Diagnosis Other dyspnea and respiratory abnormalit y documented in this encounter Care Teams Endless Track Vehicle Supervisor Relationship Specialty Start Date End Date Ian Kendrick MD PCP - General 11/19/07 02/21/14 [facility] [address] [place] [address] documented as of this encounter
--- OUTSIDE RECORDS SUMMARY | 2022-05-15 22:40 | XMS_ITS | Encounter Summary ---
:1955 Author Organization [place] Address [address] [place] [address] Care Team Providers Name Role Phone Ian Kendrick MD Primary Care Provider [phone] Reason for Visit Reason Onset Date Comments Forms 08/26/2008 Patient assistance f orms Encounter Details Date Type Department Care Team Description 08/26/2008 Telephone [facility] Ian Kendrick Forms (Patient Clinic [place] MD Jeremiah assistance forms) [address] [place] [address] [place] [phone] [facility] [phone] [place] [address] (Wo rk) Social History Tobacco [...] you attend scientologist or Patient refused 2020 faith services? Do [...] this encounter Miscellaneous Notes Telephone Encounter - Mirna Lagunas - 08/26/2008 12:21 PM CST Patient called about patient assistance forms he dropped off quite some time go. I located these in the former triage nurse's office. I completed them and faxed/mailed them to appropriate companies for consideration in patient assistance programs. Mirna Lagunas RN TRY SCIENTIST documented in this encounter Plan of Treatment Upcoming Encounters Date Type Specialty Care Team Description 05/20/2022 Lab Lab documented as of this encounter Visit Diagnoses Not on filedocumented in this encounter Care Teams Business Transformation Consultant Relationship Specialty Start Date End Date Ian Kendrick MD PCP - General 11/19/07 02/21/14 [facility] [facility] [id number] [place] [address] documented as of this encounter
--- OUTSIDE RECORDS SUMMARY | 2022-05-15 22:40 | XMS_ITS | Encounter Summary ---
:1955 Author Organization [place] Address [address] [place] [address] Care Team Providers Name Role Phone Ian Kendrick MD Primary Care Provider [phone] Reason for Visit Reason Comments Anticoagulation Encounter Details Date Type Department Care Team Description 12/29/2008 Allied Health/Nurse Health [facility] Anticoagulation Visit [address] [address] Social History Tobacco Use [...] you attend yarsani or Patient refused 2020 mandaeism services? 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
--- OUTSIDE RECORDS SUMMARY | 2022-05-15 22:40 | XMS_ITS | Encounter Summary ---
:1955 Author Organization [place] Address [address] [place] [address] Care Team Providers Name Role Phone Ian Kendrick MD Primary Care Provider [phone] Encounter Details Date Type Department Care Team Description 01/05/2009 Results Only [facility] [place] Tyler MD Hospital Results [facility] [address] [place], [place] [address] (Wo rk) Social History [...] you attend holiness or Patient refused 2020 temple services? Do [...] Procedure Name Priority Date/Time Associated Comments Diagnosis HC PLACEMENT IVC Routine 01/05/2009 1:57 PM Resul ts for this FILTER PERCUTANEOUS CDT procedur e are in the results section. documented in this encounter Results X-RAY PLACEMENT, VEIN FILTER (01/05/2009 1:57 PM CDT) Anatomical Region Laterality Modality Other Specimen (Source) Anatomical Collection Method Collection Time Re ceived Time Location / / Volume Laterality 01/05/2009 1:57 PM CDT Impressions 01/06/2009 4:10 PM CDT INTERVENTIONAL FILTER PLACEMENT January 05, 2009 at 1359 hours HISTORY: IVC filter placement. Venous th rombosis. TECHNIQUE: The procedure and risks were explained to the patient beforehand. Following this, the patient was given 5 mg Versed and 100 mcg of fentanyl for conscious sedation. 30 minutes a sedation time. 10 mL lidocaine for local anesthetic. 2.8 m inutes of Fluoro time. 50 mL of contrast. Ultrasound was used to assess the patenc y and anatomy of the right common femoral vein. Under ultrasonic gu idance with a micropuncture technique the right common femoral vein was punctured and a sheath placed. Contrast was injected and inferi or venacavogram was done. This was done to assess for thrombus, anatomy and size. Following this a G-tube filter was deployed over the body of L3. Mild tilting was present. The patient tolerated the proce dure well and left the department in unchanged condition. IMPRESSION: Successful placement of the IVC filter as described above. Uriel Tyler MD SPECIAL IMAGING STUDIES documented in this encounter Visit Diagnoses Not on filedocumented in this encounter Care Teams Thermometer Production Worker Relationship Specialty Start Date End Date Ian Kendrick MD PCP - General 11/19/07 02/21/14 [facility] [address] [place] [address] documented as of this encounter
--- OUTSIDE RECORDS SUMMARY | 2022-05-15 22:40 | XMS_ITS | Encounter Summary ---
:1955 Author Organization [place] Address [address] [place] [address] Care Team Providers Name Role Phone Ian Kendrick MD Primary Care Provider [phone] Reason for Visit Reason Comments Anticoagulation Encounter Details Date Type Department Care Team Description 09/13/2008 Allied Health/Nurse [facility] Anticoagulation Visit [address] [address] Social History Tobacco Use [...] you attend jainism or Patient refused 2020 quaker services? Do [...] this encounter Progress Notes Mirna Lagunas - 10/28/2008 12:10 PM CDT ANTICOAGULATION FOLLOW-UP CLINIC VISIT Patient Name: Virgil Christine Date: 10/28/2008 SUBJECTIVE: Bleeding Signs/Symptoms: None Thromboembolic Signs/Symptoms: None [...] Diagnosis Comme nts HCL INR POCT Routine 09/13/2008 Encounter for Long-Term Resu lts for this (Current) Use of procedure a re in the Anticoagulants results secti on. documented in this encounter Results INR POINT OF CARE (09/13/2008) P athologist Signature INR Point of 2.2 [facility] Ian Kendrick MD LABORATORY Performing Organization Address City/State/ZIP Code Phon e Number [facility] documented in this encounter Visit Diagnoses Diagnosis residential (current) use of anticoagulant s - Primary Long-term (current) use of anticoagulant s documented in this encounter Care Teams Sales Service Technician Relationship Specialty Start Date End Date Ian Kendrick MD PCP - General 11/19/07 02/21/14 [facility] [address] [place] [address] documented as of this encounter
--- OUTSIDE RECORDS SUMMARY | 2022-05-15 22:40 | XMS_ITS | Encounter Summary ---
:1955 Author Organization [place] Address [address] [place] [address] Care Team Providers Name Role Phone Ian Kendrick MD Primary Care Provider [phone] Reason for Visit Reason Onset Date Comments Refill Request 12/07/2008 QVAR Encounter Details Date Type Department Care Team Description 12/07/[address] [facility] Ian Kendrick Refill Request (QVAR) [place] [address] [place] [address]83 [facility] [phone] [place] [address] (Wo rk) Social History Tobacco [...] you attend latter-day or Patient refused 2020 sabianist services? Do [...] Notes Telephone Encounter - Hazel Jj - 12/13/2008 12:22 PM CDT Phone number provided was not correct. New number was given. Phone number is [phone]. Per [place] will be sent his Qvar. Hazel Jj RN Telephone Encounter - Hazel Jj - 12/13/2008 12:10 PM CDT Staff Message copied by HAZEL JJ on FriDec 13, 2008 12:10 PM ------ Message from: JAKOB WORRELL Created: FriDec 06, 2008 8:23 AM Regarding: rx request/Bershow Contact: Virgil needs a refill for Qvar 80mg, the Rx # is [id number]. The phone to call is [phone] thru the [employer] Program. He's almost out of the med. Virgil can be reached at [phone]. DL 6-16@8:29am Telephone Encounter - Hazel Jj - 12/07/2008 9:53 AM CDT Staff Message copied by HAZEL JJ on FriDec 07, 2008 9:53 AM ------ Message from: JAKOB WORRELL Created: FriDec 06, 2008 8:23 AM Regarding: rx request/Bershow Contact: Virgil needs a refill for Qvar 80mg, the Rx # is [id number]. The phone to call is [phone] thru the [employer] Program. He's almost out of the med. Virgil can be reached at [phone]. DL 6-16@8:29am documented in this encounter Plan of Treatment Upcoming Encounters Date Type Specialty Care Team Description 05/20/2022 Lab Lab documented as of this encounter Visit Diagnoses Not on filedocumented in this encounter Care Teams Lamp Inspector Relationship Specialty Start Date End Date Ian Kendrick MD PCP - General 11/19/07 02/21/14 [facility] [address] [place] [address] documented as of this encounter
--- OUTSIDE RECORDS SUMMARY | 2022-05-15 22:40 | XMS_ITS | Encounter Summary ---
:1955 Author Organization [place] Address [address] [place] [address] Care Team Providers Name Role Phone Ian Kendrick MD Primary Care Provider [phone] Reason for Visit Reason Comments Ear Problem right ear flush Encounter Details Date Type Department Care Team Description 01/05/2009 Allied Health/Nurse [facility] Ear Problem (right ear Visit Clinic [facility]) [address] [place] [address] Social History Tobacco Use Types [...] you attend orthodox or Patient refused 2020 jain services? Do [...] Priority Date/Time Associated Diagnosis Comme nts HC REMOVE IMPACTED Routine 01/05/2009 11:40 AM CDT Ear Pain CERUMEN documented in this encounter Visit Diagnoses Diagnosis Ear pain - Primary Otalgia, unspecified documented in this encounter Care Teams Lead Architect Relationship Specialty Start Date End Date Ian Kendrick MD PCP - General 11/19/07 02/21/14 [facility] [address] [place] [address] documented as of this encounter
--- OUTSIDE RECORDS SUMMARY | 2022-05-15 22:40 | XMS_ITS | Encounter Summary ---
:1955 Author Organization [place] Address [address] [place] [address] Care Team Providers Name Role Phone Ian Kendrick MD Primary Care Provider [phone] Reason for Visit Reason Comments Anticoagulation Encounter Details Date Type Department Care Team Description 10/28/2008 Allied Health/Nurse [facility] Anticoagulation Visit [address] [address] Social History Tobacco Use [...] you attend pentecostal or Patient refused 2020 worship services? Do [...] this encounter Progress Notes Shelly Davis - 10/28/2008 10:11 AM CDT ANTICOAGULATION FOLLOW-UP CLINIC VISIT Patient [...] Diagnosis Comme nts HCL INR POCT Routine 10/28/2008 Encounter for Long-Term Resu lts for this (Current) Use of procedure a re in the Anticoagulants results secti on. documented in this encounter Results INR POINT OF CARE (10/28/2008) P athologist Signature INR Point of 2.5 [facility] Ian Kendrick MD LABORATORY Performing Organization Address City/State/ZIP Code Phon e Number [facility] documented in this encounter Visit Diagnoses Diagnosis USP (current) use of anticoagulant s Long-term (current) use of anticoagulant s documented in this encounter Care Teams Green Chain Worker Relationship Specialty Start Date End Date Ian Kendrick MD PCP - General 11/19/07 02/21/14 [facility] [address] [place] [address] documented as of this encounter
--- OUTSIDE RECORDS SUMMARY | 2022-05-15 22:40 | XMS_ITS | Encounter Summary ---
:1955 Author Organization [place] Address [address] [place] [address] Care Team Providers Name Role Phone Ian Kendrick MD Primary Care Provider [phone] Reason for Visit Reason Comments Ear Problem left ear cleaning Encounter Details Date Type Department Care Team Description 06/21/2008 Allied Health/Nurse [facility] Ear Problem (left ear Visit Clinic [place] [facility]) [address] [place] [address] Social History Tobacco Use Types Packs/Day Years Used Date Smoking Tobacco: Former Cigarettes Comments: 2004 Alcohol Use Standard Drinks/Week Comments Yes 0 (1 standard drink = 0.6 oz pure alcoho l) 4 BEERS A WEEK Alcohol Habits Answer Date Recorded How often do you have a drink containing 4 or more times a w knik 05/25/2021 alcohol? How many drinks containing alcohol [...] you attend adventism or Patient refused 2020 synagogue services? Do [...] on filedocumented in this encounter Care Teams Structural Engineering Drafting Officer Relationship Specialty Start Date End Date Bershow, Ian Jeremiah, MD PCP - General 11/19/07 02/21/14 [facility] [address] [place] [address] documented as of this encounter
--- OUTSIDE RECORDS SUMMARY | 2022-05-15 22:40 | XMS_ITS | Encounter Summary ---
:1955 Author Organization [place] Address [address] [place] [address] Care Team Providers Name Role Phone Ian Kendrick MD Primary Care Provider [phone] Reason for Visit Reason Onset Date Comments Patient Request 01/05/2009 Encounter Details Date Type Department Care Team Description 01/05/2009 Telephone [facility] Ian Kendrick [place] [address] [place] [address] [facility] [phone] [facility] N [address] (Wo rk) Social History [...] you attend confucianism or Patient refused 2020 buddhism services? Do [...] Notes Telephone Encounter - Hazel Jj - 01/05/2009 8:22 AM CDT Spoke with patient on the phone, see other message. Hazel Jj RN Telephone Encounter - Hazel Jj - 01/05/2009 8:22 AM CDT Staff Message copied by HAZEL JJ on FriJan 05, 2009 8:22 AM ------ Message from: SOTERO ANDERSON Created: FriJan 04, 2009 11:17 AM Regarding: sb/pls have Hazel call him regard inr/kd [phone] documented in this encounter Plan of Treatment Upcoming Encounters Date Type Specialty Care Team Description 05/20/2022 Lab Lab documented as of this encounter Visit Diagnoses Not on filedocumented in this encounter Care Teams Assistant Speech Language Pathologist Relationship Specialty Start Date End Date Ian Kendrick MD PCP - General 11/19/07 02/21/14 [facility] [address] [place] [address] documented as of this encounter
--- OUTSIDE RECORDS SUMMARY | 2022-05-15 22:40 | XMS_ITS | Encounter Summary ---
:1955 Author Organization [place] Address [address] [place] [address] Care Team Providers Name Role Phone Ian Kendrick MD Primary Care Provider [phone] Reason for Visit Reason Onset Date Comments Refill Request 12/14/2008 immodium Encounter Details Date Type Department Care Team Description 12/14/2008 Refill [facility] Ian Kendrick Refill Request [facility] MD Jeremiah (immodium) [address] [place] [address] [place] [address] [facility] [phone] [place] [address] (Wo rk) Social History Tobacco [...] you attend denominational or Patient refused 2020 rastafari services? Do [...] Notes Telephone Encounter - Marco Pak - 12/15/2008 10:49 AM CDT Pt informed rx ready for pickup. Marco Pak AUGER OPERATOR Telephone Encounter - Ian Kendrick - 12/14/2008 4:58 PM CDT Prescription refilled. Please inform patient that prescription is ready for pick-up at the office. Telephone Encounter - Julianna Jj - 12/14/2008 3:35 PM CDT Patient is requesting a refill of lomotil. Last OV 11/29. Can you refill? Julianna Jj RN Last Refill: LOMOTIL 2.5-0.025 MG/5ML OR LIQD QS 3 months 1 12/09/2007 Si-2 TEASPOONFUL 4 TIMES DAILY NEEDED Class: Fax Route: Oral Telephone Encounter - Julianna Jj - 12/14/2008 3:29 PM CDT Staff Message copied by JULIANNA JJ on FriDec 14, 2008 3:29 PM ------ Message from: EVANGELIST VALENZUELA Created: FriDec 14, 2008 2:33 PM Regarding: SB/ questions for julianna Contact: Virgil has some questions for julianna He can be reached at [phone] documented in this encounter Plan of Treatment Upcoming Encounters Date Type Specialty Care Team Description 05/20/2022 Lab Lab documented as of this encounter Visit Diagnoses Diagnosis ULCERATIVE COLITIS NOS - Primary Ulcerative colitis, unspecified documented in this encounter Care Teams Environmental Adviser Relationship Specialty Start Date End Date Ian Kendrick MD PCP - General 11/19/07 02/21/14 [facility] [address] [place] [address] documented as of this encounter
--- OUTSIDE RECORDS SUMMARY | 2022-05-15 22:40 | XMS_ITS | Encounter Summary ---
:1955 Author Organization [place] Address [address] [place] [address] Care Team Providers Name Role Phone Ian Kendrick MD Primary Care Provider [phone] Reason for Visit Reason Onset Date Comments Refill Request 10/05/2008 leslie Encounter Details Date Type Department Care Team Description 10/05/2008 Refill [facility] Ian Kendrick Refill Request [facility] MD Jeremiah (atrovent) [address] [place] [address] [place] [address] [facility] [phone] [place] [address] (Wo rk) Social History Tobacco [...] y documented in this encounter Care Teams Compensation/Benefits Specialist Relationship Specialty Start Date End Date Ian Kendrick MD PCP - General 11/19/07 02/21/14 [facility] [address] [place] [address] documented as of this encounter
--- OUTSIDE RECORDS SUMMARY | 2022-05-15 22:40 | XMS_ITS | Encounter Summary ---
:1955 Author Organization [place] Address [address] [place] [address] Care Team Providers Name Role Phone Ian Kendrick MD Primary Care Provider [phone] Reason for Visit Reason Onset Date Comments INR Followup 09/20/2008 Encounter Details Date Type Department Care Team Description 09/20/2008 Telephone [facility] Ian Kendrick, INR Followup Prior Maurizio VILLASEÑOR [address] [place] [address] [place] [phone] [place] [address] (Wo rk) Social History Tobacco Use Types Packs/Day Years Used Date Smoking Tobacco: Former Cigarettes Comments: 2005 Alcohol Use Standard Drinks/Week Comments Yes 0 (1 standard drink = 0.6 oz pure alcoho l) 4 BEERS A WEEK Alcohol Habits Answer Date Recorded How often do you have a drink containing 4 or more times a w [place] 05/25/2021 alcohol? How many drinks containing alcohol [...] you attend alevism or Patient refused 2020 gnosticist services? Do [...] Notes Telephone Encounter - Mirna Lagunas - 09/21/2008 3:29 PM CDT Spoke with patient. Has appointment with surgery tomorrow. Advised to get his INR checked tomorrow unless the surgeon schedules him for surgery and takes him off of coumadin. Mirna Lagunas RN Telephone Encounter - Mirna Lagunas - 09/21/2008 1:43 PM CDT Left message for patient to call back. Mirna Lagunas RN Telephone Encounter - Fletcher Gentile - 09/20/2008 1:41 PM CDT Virgil sees his Surgeon in a couple days for a consult and may be having surgery. He did not have his INR at today as he was told there was no one there to do it. Mirna is off this afternoon and he asks if she can call him at about 9 am on 09/21/08. His phone is [phone]. Fletcher Gentile LPN Telephone Encounter - Fletcher Gentile - 09/20/2008 1:36 PM CDT Staff Message copied by FLETCHER GENTILE on FriSep 20, 2008 1:36 PM ------ Message from: TEAGAN QUINN Created: FriSep 20, 2008 10:54 AM Regarding: would like to speak with a INR nurse Contact: Pt would like to speak with the INR nurse, he is going to have surgery and needs to know when he should schedule his next INR. Pt can be reach at [phone]. documented in this encounter Plan of Treatment Upcoming Encounters Date Type Specialty Care Team Description 05/20/2022 Lab Lab documented as of this encounter Visit Diagnoses Not on filedocumented in this encounter Care Teams Choir Accompanist Relationship Specialty Start Date End Date Ian Kendrick MD PCP - General 11/19/07 02/21/14 [facility] [address] [place] [address] documented as of this encounter
--- OUTSIDE RECORDS SUMMARY | 2022-05-15 22:40 | XMS_ITS | Encounter Summary ---
:1955 Author Organization [facility] Address [address] [place] [address] Care Team Providers Name Role Phone Ian Kendrick MD Primary Care Provider [phone] Reason for Referral Office Workup No CT/MRI - Closed Specialty Diagnoses / Procedures Referred By Contact Refer red To Contact Diagnoses Embolism and thrombosis of unspecified site Ian Kendrick UMPHYS MD ONCOLOGY/HEMATOLOGY [address]LO[address] [place], [place] [address] [place] [address] Phone: [phone] Referral ID Status Reason Start Date Expiration Date Visits Requ ested Visits Authorized [id number] Closed 09/24/2008 06/22/2011 1 1 Reason for Visit Reason Onset Date Comments Referral 09/22/2008 hematology Encounter Details Date Type Department Care Team Description 09/22/2008 Telephone [facility] Ian Kendrick Referr al (hematology) Clinic [place] MD Jeremiah [address] [place], [place] [address] [facility] [address] [address] [phone] [place] [address] (Wo rk) Social History Tobacco Use Types Packs/Day Years Used Date Smoking Tobacco: Former Cigarettes Comments: 2004 Alcohol Use Standard Drinks/Week Comments Yes 0 (1 standard drink = 0.6 oz pure alcoho l) 4 BEERS A WEEK Alcohol Habits Answer Date Recorded How often do you have a drink containing 4 or more times a w [place] 05/25/2021 alcohol? How many drinks containing alcohol [...] attend jehovah's witness or Patient refused 2020 methodist services? Do [...] Notes Telephone Encounter - Ian Kendrick - 09/24/2008 7:50 AM CDT I do not know of other local Hematology groups. I created a referral to [facility] Hematology. Please contact him and give him the number. Let me know if he has other questions. Thanks, SAB Telephone Encounter - Hazel Jj - 09/22/2008 4:57 PM CDT Patient wants second opinion from a different operating room surgical technologist. Is this ok? Telephone Encounter - Hazel Jj - 09/22/2008 4:55 PM CDT Staff Message copied by HAZEL JJ on FriSep 22, 2008 4:55 PM ------ Message from: JAKOB WORRELL Created: FriSep 22, 2008 4:15 PM Regarding: Christelle/Mireille Contact: Virgil would like a 2nd opinion. He needs to be referred to another Photographic Equipment Inspector. Virgil can be reachedat [phone]. DL 4-2@4:17pm Telephone Encounter - Hazel Jj - 09/22/2008 4:48 PM CDT Attempted to call patient. Left message for patient to return my call. Hazel Jj RN Telephone Encounter - Hazel Jj - 09/22/2008 4:46 PM CDT Staff Message copied by HAZEL JJ on FriSep 22, 2008 4:46 PM ------ Message from: JAKOB WORRELL Created: FriSep 22, 2008 4:15 PM Regarding: Ref/Mireille Contact: Virgil would like a 2nd opinion. He needs to be referred to another Photographic Equipment Inspector. Virgil can be reachedat [phone]. DL 4-2@4:17pm documented in this encounter Plan of Treatment Upcoming Encounters Date Type Specialty Care Team Description 05/20/2022 Lab Lab documented as of this encounter Visit Diagnoses Diagnosis VENOUS THROMBOSIS NOS - Primary Embolism and thrombosis of unspecified s ite documented in this encounter Care Teams Fur Clipper Relationship Specialty Start Date End Date Ian Kendrick MD PCP - General 11/19/07 02/21/14 [facility] [address] [place] [address] documented as of this encounter
--- OUTSIDE RECORDS SUMMARY | 2022-05-15 22:40 | XMS_ITS | Encounter Summary ---
:1955 Author Organization [facility] Address [address] [place] [address] Care Team Providers Name Role Phone Ian Kendrick MD Primary Care Provider [phone] Reason for Visit Reason Comments Anticoagulation Encounter Details Date Type Department Care Team Description 12/06/2008 Allied Health/Nurse Health [facility] Anticoagulation Visit [address] [address] Social History Tobacco Use [...] you attend bahai or Patient refused 2020 yazdanism services? Do [...] this encounter Progress Notes Shelly Davis - 12/06/2008 3:58 PM CDT ANTICOAGULATION FOLLOW-UP CLINIC VISIT Patient Name: Virgil Christine Date: 12/06/2008 SUBJECTIVE: Bleeding Signs/Symptoms: None Thromboembolic Signs/Symptoms: None [...] Diagnosis Comme nts HCL INR POCT Routine 12/06/2008 Encounter for Long-Term Resu lts for this (Current) Use of procedure a re in the Anticoagulants results secti on. 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
--- OUTSIDE RECORDS SUMMARY | 2022-05-15 22:40 | XMS_ITS | Encounter Summary ---
:1955 Author Organization [facility] Address [address] [place] [address] Care Team Providers Name Role Phone Ian Kendrick MD Primary Care Provider [phone] Reason for Visit Reason Comments Anticoagulation INR Encounter Details Date Type Department Care Team Description 09/29/2008 Allied Health/Nurse [facility] Ant icoagulation (INR) Visit [address] [address] Social History Tobacco Use Types [...] you attend yazidi or Patient refused 2020 sabianism services? Do [...] documented as of this encounter Progress Notes Hazel Jj - 09/29/2008 4:55 PM CDT ANTICOAGULATION FOLLOW-UP CLINIC VISIT Patient Name: Virgil Christine Date: 09/29/2008 SUBJECTIVE: Bleeding Signs/Symptoms: None Thromboembolic Signs/Symptoms: None Medication Changes: No Dietary Changes: No Bacterial/Viral Infection: No Missed Coumadin Doses: This week - Other Concerns: Yes, COMPLIANCE WITH MEDICATION ASSESSMENT/PLAN: See: ANTICOAGULATION QIC flow sheet. ANTICOAGULATION CLINIC documented in this encounter Nursing Notes 09/29/2008 12:15 PM CDT >> HAZEL JJ Mon Oct 03, 2008 10:27 AM Having difficulty getting this encounter to close. Not accepting smart set. documented in this encounter Plan of Treatment Upcoming Encounters Date Type Specialty Care Team Description 05/20/2022 Lab Lab documented as of this encounter Procedures Procedure Name Priority Date/Time Associated Diagnosis Comme nts HCL INR POCT Routine 09/29/2008 4:56 PM Encounter for Long-Ter m Results for this CDT (Current) Use of procedure a re in Anticoagulants the results section. 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
--- OUTSIDE RECORDS SUMMARY | 2022-05-15 22:40 | XMS_ITS | Encounter Summary ---
:1955 Author Organization [facility] Address [address] [place] [address] Care Team Providers Name Role Phone Ian Kendrick MD Primary Care Provider [phone] Reason for Visit Reason Onset Date Comments Refill Request 09/09/2008 qvar inhalers, new r x for atrovent as well would like double order Formulary Issue 09/13/2008 Savannah Suarez Encounter Details Date Type Department Care Team Description 09/09/2008 Refill [facility] Ian Kendrick Refill Request (qvar Clinic Chhaya Daniels [place], [place] [address] [place] [facility] CLINIC atrovent as well would [address] like connie ble order); [id number] [address] Formulary Issue (Qvar, [place], [place] Proair) [address] (Wo rk) Social History Tobacco Use Types Packs/Day Years Used Date Smoking Tobacco: Former Cigarettes Comments: 2004 Alcohol Use Standard Drinks/Week Comments Yes 0 (1 standard drink = 0.6 oz pure alcoho l) 4 BEERS A WEEK Alcohol Habits Answer Date Recorded How often do you have a drink containing 4 or more times a w [place] 05/25/2021 alcohol? How many drinks containing alcohol [...] you attend synagogue or Patient refused 2020 anabaptist services? Do [...] encounter Miscellaneous Notes Telephone Encounter - Mirna Gee - 09/22/2008 2:42 PM CDT Rx's sent. Pharmacy will notify us if they do not go through. Mirna Gee RN Telephone Encounter - Ian Kendrick - 09/13/2008 5:31 PM CDT I would plan to prescribe Advair 250/50 and any albuterol that is covered. If no albuterol is covered, we can try Xopenex. I have pended orders - please attempt to confirm if these will go through, or if not, what will. Thanks, SAB Telephone Encounter - Mirna Gee - 09/13/2008 1:32 PM CDT Patient has [place]. Qvar and Proair not covered. Can you rx something different? Mirna Gee RN Telephone Encounter - Mirna Gee - 09/13/2008 1:31 PM CDT Staff Message copied by MIRNA GEE on FriSep 13, 2008 1:31 PM ------ Message from: TEAGAN QUINN Created: FriSep 13, 2008 12:19 PM Regarding: sb/insurance does not cover Qvar/Proair Contact: Pt went to [facility] to cotton picker the following rx's and found out his insurance does not cover these. He needs Dr. Kendrick send over new rx that his insurance will cover. If you have anyquestions pt can be reach at [phone]. Qvar Proair Inhaler Telephone Encounter - Mirna Gee - 09/13/2008 10:58 AM CDT One month supply sent to pharmacy. Patient is waiting for Qvar to arrive in clinic from patient assistance program. It should arrive in clinic shortly, but patient is completely out of meds now. He never heard from assistance program about whether or not he was approved for Atrovent assistance. He didnot call to follow up on it because he now has insurance. The assistance program for Qvar did not enter in coverage for Proair as requested. The only product approved and ordered from rx assistance is the Qvar. Others he will get through insurance. Mirna Gee RN Telephone Encounter - Nay Bella - 09/09/2008 9:59 AM CDT [phone] (home) Call patient when inhalers are approved. documented in this encounter Plan of Treatment Upcoming Encounters Date Type Specialty Care Team Description 05/20/2022 Lab Lab documented as of this encounter Visit Diagnoses Diagnosis Other dyspnea and respiratory abnormalit y - Primary COPD (chronic obstructive pulmonary dise ase) (H) Chronic airway obstruction, not elsewher e classified Mild persistent asthma Unspecified asthma documented in this encounter Care Teams Wireline Operator Relationship Specialty Start Date End Date Ian Kendrick MD PCP - General 11/19/07 02/21/14 [facility] [address] [place] [address] documented as of this encounter
--- OUTSIDE RECORDS SUMMARY | 2022-05-15 22:40 | XMS_ITS | Encounter Summary ---
:1955 Author Organization [facility] Address [address] [place] [address] Care Team Providers Name Role Phone Ian Kendrick MD Primary Care Provider [phone] Reason for Visit Reason Onset Date Comments Patient Request 01/04/2009 Update Encounter Details Date Type Department Care Team Description 01/04/2009 Telephone [facility] Ian Kendrick Paticarlo t Request [facility] MD Jeremiah (Update) [address] [place] [address] [place] [id number] [facility] [phone] [place] [address] (Wo rk) Social History Tobacco [...] you attend episcopal or Patient refused 2020 mormonism services? Do [...] Telephone Encounter - Hazel Jj - 01/05/2009 8:21 AM CDT Patient calls to inform us that he is having a bindu filter placed per Dr. Holley on 01/05/09. Hazel Jj RN Telephone Encounter - Hazel Jj - 01/05/2009 8:15 AM CDT Staff Message copied by HAZEL JJ on FriJan 05, 2009 8:15 AM ------ Message from: JAKOB WORRELL Created: FriJan 04, 2009 2:44 PM Regarding: Phone Message/Hazel Contact: Virgil needs to stop is Coumadin. He's having a procedure tomorrow. Please call him at [phone]. DL 7-15@2:45pm Telephone Encounter - Hazel Jj - 01/04/2009 3:19 PM CDT Staff Message copied by HAZEL JJ on FriJan 04, 2009 3:19 PM ------ Message from: JAKOB WORRELL Created: FriJan 04, 2009 2:44 PM Regarding: Phone Message/Hazel Contact: Virgil needs to stop is Coumadin. He's having a procedure tomorrow. Please call him at [phone]. DL 7-15@2:45pm documented in this encounter Plan of Treatment Upcoming Encounters Date Type Specialty Care Team Description 05/20/2022 Lab Lab documented as of this encounter Visit Diagnoses Not on filedocumented in this encounter Care Teams Structural Engineering Project Manager Relationship Specialty Start Date End Date Ian Kendrick MD PCP - General 11/19/07 02/21/14 [facility] [address] [place] [address] documented as of this encounter
--- OUTSIDE RECORDS SUMMARY | 2022-05-15 22:40 | XMS_ITS | Encounter Summary ---
:1955 Author Organization [facility] Address [address] [place] [address] Care Team Providers Name Role Phone Ian Kendrick MD Primary Care Provider [phone] Encounter Details Date Type Department Care Team Description 12/13/2008 Results [facility] Results MD OMAR Daniels INIC [address] [facility] [place] N [address] (Wo rk) Social History Tobacco Use Types [...] attend jehovah's witness or Patient refused 2020 oriental orthodox services? [...] Procedure Name Priority Date/Time Associated Diagnosis Comme [facility] ZZC RT DUPLEX Routine 12/13/2008 3:41 PM Results for this EXTREM VENOUS,UNI CDT procedure are in OR LTD the results section. documented in this encounter Results RT DUPLEX EXTREM VENOUS,UNI OR LTD (12/13/2008 3:41 PM CDT) Anatomical Region Laterality Modality Other Specimen (Source) Anatomical Collection Method Collection Time Re ceived Time Location / / Volume Laterality 12/13/2008 3:41 PM CDT Impressions 12/13/2008 3:59 PM CDT US VENOUS LOWER EXTEMITY UNI RIGHT Nov 222008 3:41:00 PM HISTORY: Thrombophlebitis. 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 ? COMPARISON: ?12/21/2007. FINDINGS: There is thrombus throughout t he right femoral vein and the proximal popliteal vein. The thrombus is nonocclusive. Slow flow is seen around the thrombus. This is in the same region as the thrombus seen on the prior exam. However, there i s now some thrombus in the popliteal vein which was not present pre viously. Chronicity for this segment of thrombosed vein is not known. The common femoral vein and posterior tibial veins are patent withou t thrombus. 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 The popliteal ve in thrombus is new since the prior exam. Ian Kendrick MD SPECIAL IMAGING STUDIES documented in this encounter Visit Diagnoses Not on filedocumented in this encounter Care Teams Technical Services Rep Relationship Specialty Start Date End Date Ian Kendrick MD PCP - General 11/19/07 02/21/14 [facility] [address] [place] [address] documented as of this encounter
--- OUTSIDE RECORDS SUMMARY | 2022-05-15 22:40 | XMS_ITS | Encounter Summary ---
:1955 Author Organization [facility] Address [address] [place] [address] Care Team Providers Name Role Phone Ian Kendrick MD Primary Care Provider [phone] Reason for Visit Reason Comments Anticoagulation Encounter Details Date Type Department Care Team Description 12/20/2008 Allied Health/Nurse Health [facility] Anticoagulation Visit [address] [address] Social History Tobacco Use Types Packs/Day Years Used Date Smoking Tobacco: Former Cigarettes Comments: 2004 Alcohol Use Standard Drinks/Week Comments Yes 0 (1 standard drink = 0.6 oz pure alcoho l) 4 BEERS A WEEK Alcohol Habits Answer Date Recorded How often do you have a drink containing 4 or more times a w [place] 05/25/2021 alcohol? How many drinks containing alcohol [...] you attend confucianist or Patient refused 2020 hinduism services? Do [...] this encounter Progress Notes Shelly Davis - 12/20/2008 12:26 PM CDT ANTICOAGULATION FOLLOW-UP CLINIC VISIT Patient Name: Virgil Christine Date: 12/20/2008 SUBJECTIVE: Bleeding Signs/Symptoms: None Thromboembolic Signs/Symptoms: None Medication Changes: Dietary Changes: NO Bacterial/Viral Infection: No Missed Coumadin Doses: Over one week ago - Other Concerns: No ASSESSMENT/PLAN: See: ANTICOAGULATION QIC flow sheet. ANTICOAGULATION CLINIC documented in this encounter Plan of Treatment Upcoming Encounters Date Type Specialty Care Team Description 05/20/2022 Lab Lab documented as of this encounter Procedures Procedure Name Priority Date/Time Associated Diagnosis Comme nts HCL INR POCT Routine 12/20/2008 Encounter for Long-Term Resu lts for this (Current) Use of procedure a re in the Anticoagulants results secti on. documented in this encounter Results INR POINT OF CARE (12/20/2008) P athologist Signature INR Point of 1.2 [facility] Ian Kendrick MD LABORATORY Performing Organization Address City/State/ZIP Code Phon e Number [facility] documented in this encounter Visit Diagnoses Diagnosis half-way (current) use of anticoagulant s - Primary Long-term (current) use of anticoagulant s documented in this encounter Care Teams Rehanger Relationship Specialty Start Date End Date Ian Kendrick MD PCP - General 11/19/07 02/21/14 [facility] [address] [place] [address] documented as of this encounter
--- OUTSIDE RECORDS SUMMARY | 2022-05-15 22:40 | XMS_ITS | Encounter Summary ---
:1955 Author Organization [facility] Address [address] [place] [address] Care Team Providers Name Role Phone Ian Kendrick MD Primary Care Provider [phone] Reason for Referral Specialty Diagnoses / Procedures Referred By Contact Refer red To Contact Ian Kendrick And MD rufus [facility] [address] [place], [place] [address] Referral ID Status Reason Start Date Expiration Date Visits Requ ested Visits Authorized Encounter Details Date Type Department Care Team Description 09/22/2008 Orders Only [facility] Ian Kendrick DIAGNO SIS NOT YET Clinic Chhaya Daniels MD DEFINED (Primary Dx) [address] [place], [place] CLINIC [address] [facility] [phone] [place] [address] (Wo rk) Social History Tobacco [...] you attend temple or Patient refused 2020 confucianism services? Do [...] Name Priority Date/Time Associated Diagnosis Comme nts ADULT COLORECTAL SURGERY Routine 09/22/2008 DIAGNOSIS NOT YE T DEFINED CLINICAL DOCUMENTATION IMPROVEMENT SPECIALIST REFERRAL documented in this encounter Results CONSULT COLONRECTAL SURG (09/22/2008) Specimen (Source) Anatomical Location Collection Method / Collectio n Time Received Time / Laterality Volume 09/22/2008 Narrative This result has an attachment that is no t available. Ian Kendrick MD REFERRAL documented in this encounter Visit Diagnoses Diagnosis DIAGNOSIS NOT YET DEFINED - Primary documented in this encounter Care Teams Last Model Maker Relationship Specialty Start Date End Date Ian Kendrick MD PCP - General 11/19/07 02/21/14 [facility] [address] [place] [address] documented as of this encounter
--- OUTSIDE RECORDS SUMMARY | 2022-05-15 22:40 | XMS_ITS | Encounter Summary ---
:1955 Author Organization [facility] Address [address] [place] [address] Care Team Providers Name Role Phone Ian Kendrick MD Primary Care Provider [phone] Encounter Details Date Type Department Care Team Description 12/10/[address] [facility] [place] [address] [place] [address] [facility] [phone] [facility] N [address] (Wo rk) Social History Tobacco Use Types Packs/Day Years Used Date Smoking Tobacco: Former Cigarettes Comments: 2005 Alcohol Use Standard Drinks/Week Comments Yes 0 (1 standard drink = 0.6 oz pure alcoho l) 4 BEERS A WEEK Alcohol Habits Answer Date Recorded How often do you have a drink containing 4 or more times a w [place] 05/25/2021 alcohol? How many drinks containing [...] you attend holiness or Patient refused 2020 catholic services? Do [...] Notes Telephone Encounter - Ian Kendrick - 12/10/2008 10:22 AM CDT Patient having major dental work done on 12/15/08 and 12/20/08. Instructed to go off warfarin 5 days prior to dental surgery, continue off through second procedure.Restart warfarin on 12/20/08 following procedure. He understands that he is at increased risk for recurrent DVT and pulmonary embolism during this period off warfarin. He is due for follow up office visit to check anticoagulation status. He previously has been instructed that he was a lifelong warfarin candidate because of genetic predisposition for hypercoaguability, plus DVT with pulmonary embolism. documented in this encounter Plan of Treatment Upcoming Encounters Date Type Specialty Care Team Description 05/20/2022 Lab Lab documented as of this encounter Visit Diagnoses Not on filedocumented in this encounter Care Teams Signal Supervisor Relationship Specialty Start Date End Date Ian Kendrick MD PCP - General 11/19/07 02/21/14 [facility] [address] [place] [address] documented as of this encounter
--- OUTSIDE RECORDS SUMMARY | 2022-05-15 22:40 | XMS_ITS | Encounter Summary ---
:1955 Author Organization [place] Address [address] [place] [address] Care Team Providers Name Role Phone Ian Kendrick MD Primary Care Provider [phone] Reason for Visit Reason Comments Medication Request medication check, quit/stop coumadin for surgery, maybe an US for blood clots Encounter Details Date Type Department Care Team Description 12/12/2008 Office Visit [facility] Ian Kendrick Thromb ophilia (H); Clinic [place] MD Jeremiah DVT (Deep Venous Thrombosis) (H); [address] [facility] ULCERATIVE COLITIS [facility] [id number] [address] [facility] [phone] [place] [address] Social History Tobacco Use Types Packs/Day Years [...] you attend jain or Patient refused 2020 taoism services? Do [...] Sign Reading Time Taken Comments Blood Pressure 124/74 12/12/2008 11:46 AM CDT Pulse 71 12/12/2008 11:46 AM CDT Temperature 37.2 ??C (98.9 ??F) 12/12/2008 11:46 AM CDT Respiratory Rate - - Oxygen Saturation 98% 12/12/2008 11:46 AM CDT Inhaled Oxygen Concentration - - Weight 104.8 kg (231 lb) 12/12/2008 11:46 AM CDT Height 180.3 cm (5' 11) 12/12/2008 11:46 AM CDT Body Mass Index 32.22 12/12/2008 11:46 AM CDT documented in this encounter Progress Notes Ian Kendrick - 12/14/2008 10:32 AM CDT Virgil Christine is a 53 year old male who presents for evaluation of: 1. follow up DVT. Patient continues to have swelling in his right leg. It has not improved over the last year, since his last ultrasound. He has been therapeutic on the warfarin during the last year. He has not seen Hematology recently, but ultimately did have a positive thrombophilia test, though we do not have records to confirm. 2. Dental work - needs anticoagulation recommendations for upcoming dental work. 3. ulcerative colitis - has not had significant issues recently. Is following with Gastroenterology. Problems list, allergies, social and family history, and past medical history, are all reviewed and updated in [facility]. Current outpatient prescriptions prior to encounter: ATROVENT HFA 17 MCG/ACT IN AERS 2 puffs 4 times daily ALBUTEROL SULFATE HFA 108 (90 BASE) MCG/ACT IN AERS 1-2 puffs every 4 hours as needed QVAR 80 MCG/ACT IN AERS 1 time am 1 time pm PROAIR HFA 108 (90 BASE) MCG/ACT IN AERS INHALE 1 TO 2 PUFFS EVERY 4 TO 6 HOURS NEEDED COUMADIN 4 MG OR TABS 1 TO 2 TABLETS DAILY, DIRECTED LOPERAMIDE HCL 2 MG OR CAPS 2-4 caps po 4 times daily ADVAIR DISKUS 250-50 MCG/DOSE IN MISC use 1 puff twice daily BECONASE AQ 42 MCG/SPRAY NA SUSP 2 sprays each nostril twice daily BECONASE AQ 42 MCG/SPRAY NA SUSP 2 sprays each nostril twice daily WARFARIN SODIUM 2 MG OR TABS 1-2 TABLETS DAILY- as directed WARFARIN SODIUM 10 MG OR TABS 1/2-1 TABLET DAILY- as directed WARFARIN SODIUM 2 MG OR TABS 1 TABLET DAILY PAROXETINE HCL 10 MG OR TABS 1 TABLET DAILY LOMOTIL 2.5-0.025 MG/5ML OR LIQD 1-2 TEASPOONFUL 4 TIMES DAILY NEEDED FUROSEMIDE 20 MG OR TABS 1/2 to 1 TABLET DAILY as needed for leg swelling ORDER FOR DME RINA hose or support stocking, knee high SZ M4 30-40 mmHg WARFARIN SODIUM 10 MG OR TABS 1 tab daily or as directed WARFARIN SODIUM 3 MG OR TABS 2 TABLETS DAILY- or as directed FAMOTIDINE 20 MG OR TABS 1 TABLET TWICE DAILY OBJECTIVE: BP 124/74 Pulse 71 Temp (Src) 98.9 ??F (37.2 ??C) (Oral) Ht 5' 11 (1.803 m) Wt 231 lb (104.781 kg) SpO2 98% GENERAL APPEARANCE: healthy, alert and no distress HEENT: oropharynx is unremarkable, without erythema or tonsillar hypertrophy NECK: no adenopathy, no asymmetry or masses RESP: lungs clear to auscultation - no rales, rhonchi or wheezes CV: regular rates and rhythm, normal S1 S2, no S3 or S4 and no murmur, click or rub - EXT: 1+ pitting edema through right lower extremity, slightly worse dependently. No tenderness in the calf, thigh, or popliteal region. Assessment/Plan: 286.9DM Thrombophilia Comment: Plan: DUPLEX EXTREM VENOUS,UNI OR LTD Repeat ultrasound to establish resolution of DVT. Will obtain records from Hematology. Gave the following recommendations for anticoagulation - stop warfarin 5 days prior to dental surgery. He is having 2 procedures, 5 days apart, so we will keep him off of warfarin during that interval. We did discuss that he is at increased risk for clot extension and PE during this time. He will watch for any signs of worsening leg swelling or signs of pulmonary embolism such as chest pain or shortness of breathduring this interval. He will restart the warfarin the day of his last procedure. ADDENDUM: patient was positive for anticardiolipin antibodies 453.40U DVT (Deep Venous Thrombosis) Comment: Plan: DUPLEX EXTREM VENOUS,UNI OR LTD ultrasound ordered. If clot still present, will have him see Hematology. 556.9 ULCERATIVE COLITIS NOS Comment: Plan: Spent greater than 50% of 25 minutes of [id number]-mv-scne time counseling patient and/or coordinating care regarding above issues. documented in this encounter Nursing Notes 12/12/2008 11:30 AM CDT >> KANNAN DANIEL Mon Dec 12, 2008 11:49 AM Patient presents with: Medication Request - medication check, quit/stop coumadin for surgery, maybe an US for blood clots Initial BP 124/74 Pulse 71 Temp (Src) 98.9 ??F (37.2 ??C) (Oral) Ht 5' 11 (1.803 m) Wt 231 lb (104.781 kg) SpO2 98% Body mass index is 32.22 kg/(m^2).. BP completed using cuff size: large Kannan Daniel LAMP STACK DEVELOPER documented in this encounter Plan of Treatment Upcoming Encounters Date Type Specialty Care Team Description 05/20/2022 Lab Lab documented as of this encounter Visit Diagnoses Diagnosis Thrombophilia (H) Other and unspecified coagulation defect s DVT (deep venous thrombosis) (H) Acute venous embolism and thrombosis of unspecified deep vessels of lower extremity ULCERATIVE COLITIS NOS Ulcerative colitis, unspecified documented in this encounter Care Teams Internal Medicine Nurse Relationship Specialty Start Date End Date Ian Kendrick MD PCP - General 11/19/07 02/21/14 [facility] [address] [place] [address] documented as of this encounter
--- OUTSIDE RECORDS SUMMARY | 2022-05-15 22:40 | XMS_ITS | Encounter Summary ---
:1955 Author Organization [place] Address [address] [place] [address] Care Team Providers Name Role Phone Ian Kendrick MD Primary Care Provider [phone] Reason for Visit Reason Comments Anticoagulation INR Encounter Details Date Type Department Care Team Description 09/22/2008 Allied Health/Nurse [facility] Ant icoagulation (INR) Visit [address] [address] Social History Tobacco Use Types [...] you attend quaker or Patient refused 2020 denominational services? Do [...] this encounter Progress Notes Shelly Davis - 09/22/2008 4:54 PM CDT ANTICOAGULATION FOLLOW-UP CLINIC VISIT Patient Name: Virgil Christine Date: 09/22/2008 SUBJECTIVE: Bleeding Signs/Symptoms: None Thromboembolic Signs/Symptoms: None Medication Changes: Yes - Patient states he is out of Qvar Dietary Changes: No Bacterial/Viral Infection: No Missed Coumadin Doses: None Other Concerns: No ASSESSMENT/PLAN: See: ANTICOAGULATION QIC flow sheet. ANTICOAGULATION CLINIC documented in this encounter Plan of Treatment Upcoming Encounters Date Type Specialty Care Team Description 05/20/2022 Lab Lab documented as of this encounter Procedures Procedure Name Priority Date/Time Associated Diagnosis Comme nts HCL INR POCT Routine 09/22/2008 4:54 PM Encounter for Long-Ter m Results for this CDT (Current) Use of procedure a re in Anticoagulants the results section. documented in this encounter Results (ABNORMAL) INR POINT OF CARE (09/22/2008 4:54 PM CDT) P athologist Signature INR Point of 1.7 [facility] Ian Kendrick MD LABORATORY Performing Organization Address City/State/[facility] Code Phon e Number [facility] documented in this encounter Visit Diagnoses Diagnosis custodial (current) use of anticoagulant s Long-term (current) use of anticoagulant s documented in this encounter Care Teams Accounting Systems Manager Relationship Specialty Start Date End Date Ian Kendrick MD PCP - General 11/19/07 02/21/14 [facility] [address] [place] [address] documented as of this encounter
--- OUTSIDE RECORDS SUMMARY | 2022-05-15 22:40 | XMS_ITS | Encounter Summary ---
:1955 Author Organization [place] Address [address] [place] [address] Care Team Providers Name Role Phone Ian Kendrick MD Primary Care Provider [phone] Reason for Visit Reason Comments Anticoagulation Encounter Details Date Type Department Care Team Description 11/17/2008 Allied Health/[facility] Anticoagulation Visit [address] [address] Social History Tobacco Use [...] you attend anabaptism or Patient refused 2020 faith services? Do [...] this encounter Progress Notes Shelly Davis - 11/17/2008 11:35 AM CDT ANTICOAGULATION FOLLOW-UP CLINIC VISIT Patient Name: Virgil Christine Date: 11/17/2008 SUBJECTIVE: Bleeding Signs/Symptoms: None Thromboembolic Signs/Symptoms: None [...] Diagnosis Comme nts HCL INR POCT Routine 11/17/2008 Encounter for Long-Term Resu lts for this (Current) Use of procedure a re in the Anticoagulants results secti on. documented in this encounter Results INR POINT OF CARE (11/17/2008) P athologist Signature INR Point of 2.5 [facility] Ian Kendrick MD LABORATORY Performing Organization Address City/State/ZIP Code Phon e Number [facility] documented in this encounter Visit Diagnoses Diagnosis senior care (current) use of anticoagulant s Long-term (current) use of anticoagulant s documented in this encounter Care Teams Autocad Electrical Designer Relationship Specialty Start Date End Date Ian Kendrick MD PCP - General 11/19/07 02/21/14 [facility] [address] [place] [address] documented as of this encounter
--- OUTSIDE RECORDS SUMMARY | 2022-05-15 22:40 | XMS_ITS | Encounter Summary ---
:1955 Author Organization [place] Address [address] [place] [address] Care Team Providers Name Role Phone Ian Kendrick MD Primary Care Provider [phone] Reason for Visit Reason Onset Date Comments Refill Request 12/20/2008 Encounter Details Date Type Department Care Team Description 12/15/2008 Refill [facility] Destiny Soto MD Refill Request [address] [address] [address] [place], [place] [id number] (Wo rk) Social History Tobacco Use Types Packs/Day Years Used Date Smoking Tobacco: Former Cigarettes Comments: 2004 Alcohol Use Standard Drinks/Week Comments Yes 0 (1 standard drink = 0.6 oz pure alcoho l) 4 BEERS A WEEK Alcohol Habits Answer Date Recorded How often do you have a drink containing 4 or more times a w [place] 05/25/2021 alcohol? How many drinks containing [...] you attend worship or Patient refused 2020 anabaptist services? Do [...] this encounter Miscellaneous Notes Telephone Encounter - Paulina Soto - 12/15/2008 11:13 AM CDT Pt came in here stating lomotil not working, needs loperamide, nurse refilled script and send to [facility] pharmacy, pt would like to change to taget, changed script to phaarmacy Paulina Soto MD documented in this encounter Plan of Treatment Upcoming Encounters Date Type Specialty Care Team Description 05/20/2022 Lab Lab documented as of this encounter Visit Diagnoses Diagnosis UC (ulcerative colitis) (H) - Primary Ulcerative colitis, unspecified documented in this encounter Care Teams Supervisor Ovens Relationship Specialty Start Date End Date Ian Kendrick MD PCP - General 11/19/07 02/21/14 [facility] [address] [place] [address] documented as of this encounter
--- OUTSIDE RECORDS SUMMARY | 2022-05-15 22:41 | XMS_ITS | Encounter Summary ---
:1955 Author Organization [place] Address [address] [place] [address] Care Team Providers Name Role Phone Unavailable Primary Care Provider Unavailable Reason for Visit Reason Onset Date Comments Refill Request 11/17/2007 loperamide Encounter Details Date Type Department Care Team Description 11/17/2007 Refill [facility] Ian Kendrick Refill Request Clinic [place] MD Jeremiah (loperamide) [address] [place], [place] [address] [facility] [address] [facility] [phone] [place] [address] (Wo rk) Social History Tobacco [...] you attend voodoo or Patient refused 2020 anabaptism services? Do [...] Notes Telephone Encounter - Yulisa Acosta - 11/17/2007 11:01 AM CDT Rx filled per nursing protocol. Error on prior refill noted, pt uses 4 tabs QID (4xper day) Nadiya Acosta RN documented in this encounter Plan of Treatment Upcoming Encounters Date Type Specialty Care Team Description 05/20/2022 Lab Lab documented as of this encounter Visit Diagnoses Diagnosis ULCERATIVE COLITIS NOS - Primary Ulcerative colitis, unspecified documented in this encounter
--- OUTSIDE RECORDS SUMMARY | 2022-05-15 22:41 | XMS_ITS | Encounter Summary ---
:1955 Author Organization [place] Address [address] [place] [address] Care Team Providers Name Role Phone Ian Kendrick MD Primary Care Provider [phone] Reason for Visit Reason Comments Anticoagulation Encounter Details Date Type Department Care Team Description 12/21/2007 Allied Health/Nurse [facility] Anticoagulation Visit [address] [address] Social History Tobacco Use Types Packs/Day Years Used Date Smoking Tobacco: Former Cigarettes Comments: 2004 Alcohol Use Standard Drinks/Week Comments Yes 0 (1 standard drink = 0.6 oz pure alcoho l) 4 BEERS A WEEK Alcohol Habits Answer Date Recorded How often do you have a drink containing 4 or more times a w [place] 05/25/2021 alcohol? How many drinks containing alcohol [...] you attend lutheran or Patient refused 2020 bahai services? Do [...] documented as of this encounter Progress Notes Yulisa Grajeda - 12/21/2007 12:24 PM CDT ANTICOAGULATION FOLLOW-UP CLINIC VISIT Patient Name: Virgil Christine Date: 12/21/2007 SUBJECTIVE: Bleeding Signs/Symptoms: None Thromboembolic Signs/Symptoms: None Medication Changes: No Dietary Changes: No Bacterial/Viral Infection: No Missed Coumadin Doses: None Other Concerns: No ASSESSMENT/PLAN: See: ANTICOAGULATION QIC flow sheet. LV NURSE documented in this encounter Nursing Notes 12/21/2007 10:45 AM CDT >> YULISA GRAJEDA Mon Dec 21, 2007 12:16 PM Pt insurance expires after today, refilled extra coumadin to pt pharmacy. documented in this encounter Plan of Treatment Upcoming Encounters Date Type Specialty Care Team Description 05/20/2022 Lab Lab documented as of this encounter Procedures Procedure Name Priority Date/Time Associated Diagnosis Comme nts HCL INR POCT Routine 09/29/2008 5:04 PM CDT Encounter for Long -Term (Current) Use of Anticoagulants documented in this encounter Results INR POINT OF CARE (09/29/2008 5:04 PM CDT) P athologist Signature INR Point of [facility] Care [facility] Ian Kendrick MD LABORATORY Performing Organization Address City/State/ZIP Code Phon e Number [facility] documented in this encounter Visit Diagnoses Diagnosis oil heaterman (current) use of anticoagulant s - Primary Long-term (current) use of anticoagulant s documented in this encounter Care Teams Boat Garnisher Relationship Specialty Start Date End Date Ian Kendrick MD PCP - General 11/19/07 02/21/14 [place] [address] [place] [address] documented as of this encounter
--- OUTSIDE RECORDS SUMMARY | 2022-05-15 22:41 | XMS_ITS | Encounter Summary ---
:1955 Author Organization [place] Address [address] [place] [address] Care Team Providers Name Role Phone Rad Carolina MD Primary Care Provider [phone] Reason for Visit Reason Comments RECHECK DVT right leg. lots of swell ing Anticoagulation Encounter Details Date Type Department Care Team Description 11/20/2007 Office Visit [facility] Rad Carolina Edema Leg (Primary Dx); Clinic Chhaya Daniels MD Encounter for Long-Term (Current) Use of Anticoagulants; [address] [facility] ULCERATIVE COLITIS NOS; [place], [place] CLINIC [place] [address] [phone] [place] [address] (Wo rk) Social History Tobacco Use Types Packs/Day Years Used Date Smoking Tobacco: Former Cigarettes Comments: 2004 Alcohol Use Standard Drinks/Week Comments Yes 0 (1 standard drink = 0.6 oz pure alcoho l) 4 BEERS A WEEK Alcohol Habits Answer Date Recorded How often do you have a drink containing 4 or more times a w [place] 05/25/2021 alcohol? How many drinks containing alcohol [...] you attend samaritan or Patient refused 2020 bahai services? Do [...] Sign Reading Time Taken Comments Blood Pressure 110/84 11/20/2007 11:45 AM CDT Pulse 80 11/20/2007 11:45 AM CDT Temperature 37.1 ??C (98.7 ??F) 11/20/2007 11:45 AM CDT Respiratory Rate - - Oxygen Saturation 98% 11/20/2007 11:45 AM CDT Inhaled Oxygen Concentration - - Weight 100.2 kg (221 lb) 11/20/2007 11:45 AM CDT Height 180.3 cm (5' 11) 11/20/2007 11:45 AM CDT Body Mass Index 30.82 11/20/2007 11:45 AM CDT documented in this encounter Progress Notes Yulisa Acosta - 11/20/2007 12:39 PM CDT ANTICOAGULATION FOLLOW-UP CLINIC VISIT Patient Name: Virgil Christine Date: 11/20/2007 SUBJECTIVE: Bleeding Signs/Symptoms: None Thromboembolic Signs/Symptoms: None Medication Changes: Starting lasix today Dietary Changes: No Bacterial/Viral Infection: No Missed Coumadin Doses: None Other Concerns: No ASSESSMENT/PLAN: See: ANTICOAGULATION QIC flow sheet. RAD CAROLINA Rad Carolina - 11/20/2007 12:19 PM CDT Virgil Christine is a 51 year old male who presents for evaluation of: 1. Leg swelling - had a history of edema in the past, prior to his DVT. His right leg is significantly more swollen than his left. It is his right leg that had the DVT. It is gradually improving, but he finds that with the leg swollen, it is more pruritic. This was treated successfully with furosemidein the past. 2. Tick bite - 4 days ago. Engorged tick - it was large (about Rosen gagnon size). Does have headachebut this is not necessarily new or uncommon for him. There has been no significant fever. Joint pains big time, but these are not new since the tick bite. No known rash but did have some local erythema immediately after the bite. 3. ulcerative colitis - he saw Dr. Westbrook from [facility] yesterday. Had dilatation of a stricture which has helped significantly. Still having problems with diarrhea and hemorrhoids. He plans to follow up with Dr. Westbrook. Problems list, allergies, social and family history, and past medical history, are all reviewed and updated in [facility]. Current Outpatient Rx Name Route Sig Dispense Refill ??? FUROSEMIDE 20 MG OR TABS Oral 1/2 to 1 TABLET DAILY as needed for leg swelling 30 0 ??? LOPERAMIDE HCL 2 MG OR CAPS Oral 2-4 caps po 4 times daily 480 6 months ??? ORDER FOR DME RINA hose or support stocking, knee high SZ M4 30-40 mmHg 1 pair 0 ??? WARFARIN SODIUM 10 MG OR TABS Oral 1 tab daily or as directed 3 months 1 year ??? WARFARIN SODIUM 3 MG OR TABS Oral 2 TABLETS DAILY- or as directed 3 month 1 year ??? PAROXETINE HCL 10 MG OR TABS Oral 1 TABLET DAILY 0 0 ??? FAMOTIDINE 20 MG OR TABS Oral 1 TABLET TWICE DAILY 0 0 ??? QVAR 80 MCG/ACT IN AERS Inhalation 1 time am 1 time pm 0 0 ??? ATROVENT HFA 17 MCG/ACT IN AERS Inhalation 2 puffs 4 times daily 0 ??? FAMOTIDINE 20 MG OR TABS Oral 1 TABLET TWICE DAILY 60 0 OBJECTIVE: BP 110/84 Pulse 80 Temp (Src) 98.7 ??F (37.1 ??C) (Oral) Ht 5' 11 (1.803 m) Wt 221 lb (100.245 kg) SpO2 98% GENERAL APPEARANCE: healthy, alert [...] rebound or organomegaly. Bowel sounds are normal. EXT: 2+ pitting edema in the right lower extremity. Trace edema in the left lower extremity. No tenderness to palpation in either calf. SKIN: small yahaira on back where tick was found - no signs of cellulitis or erythema migrans rash. Assessment/Plan: 782.3AD Edema Leg (primary encounter diagnosis) Comment: Plan: FUROSEMIDE 20 MG OR TABS Edema is supected secondary to DVT, but may have some additional baseline edema. Trial lasix, use only until edema subsides or for a few weeks. I am reluctant to have him continue on the lasix if it does not seem to be helping. V58.61 Encounter for Long-Term (Current) Use of Anticoagulants, Chronic Comment: Plan: INR POINT OF CARE See RN encounter. 556.9 ULCERATIVE COLITIS NOS Comment: Plan: follow up with Dr. Westbrook as planned. 919.4E Tick Bite Comment: Plan: No evidence of Lyme disease in terms of symptoms. Tick description sounds more consistent witha wood tick than a deer tick based on size. No prophylaxis now. Described symptoms to look for whichshould prompt medical visit. documented in this encounter Nursing Notes 11/20/2007 11:45 AM CDT >> MARCO PAK Fri November 20, 2007 12:00 PM Virgil Christine presents for as above. Initial BP 110/84 Pulse 80 Temp (Src) 98.7 ??F (37.1 ??C) (Oral) Ht 5' 11 (1.803 m) Wt 221 lb (100.245 kg) SpO2 98% Body mass index is 30.82 kg/(m^2).. BP completed using cuff size: large Marco Pak HEARING AID SPECIALIST documented in this encounter Plan of Treatment Upcoming Encounters Date Type Specialty Care Team Description 05/20/2022 Lab Lab documented as of this encounter Procedures Procedure Name Priority Date/Time Associated Diagnosis Comme nts HCL INR POCT Routine 11/20/2007 Encounter for Long-Term Resu lts for this (Current) Use of procedure a re in the Anticoagulants results secti on. documented in this encounter Results INR POINT OF CARE (11/20/2007) P athologist Signature INR Point of 2.8 [facility] Care [facility] Rad Carolina MD LABORATORY Performing Organization Address City/State/ZIP Code Phon e Number [facility] documented in this encounter Visit Diagnoses Diagnosis Edema leg - Primary Edema [facility] (current) use of anticoagulant s Long-term (current) use of anticoagulant s ULCERATIVE COLITIS NOS Ulcerative colitis, unspecified Tick bite Other, multiple, and unspecified sites, insect bite, nonvenomous, without mention of infection documented in this encounter Care Teams Hydrogen Cell Tender Relationship Specialty Start Date End Date Rad Carolina MD PCP - General 11/19/07 02/21/14 [place] [id number] [place] [address] documented as of this encounter
--- OUTSIDE RECORDS SUMMARY | 2022-05-15 22:41 | XMS_ITS | Encounter Summary ---
:1955 Author Organization [place] Address [address] [place] [address] Care Team Providers Name Role Phone Ian Kendrick MD Primary Care Provider [phone] Reason for Referral Office Workup No CT/MRI - Closed Specialty Diagnoses / Procedures Referred By Contact Refer red To Contact Diagnoses Embolism and thrombosis of unspecified site Ian Kendrick [place] ON[place] HEM [facility] [id number] [address] [place], [place] [address] Referral ID Status Reason Start Date Expiration Date Visits Requ ested Visits Authorized [id number] Closed 12/21/2007 06/22/2011 1 1 Encounter Details Date Type Department Care Team Description 12/21/2007 Telephone [facility] [place] [address] [place] [address] [facility] [phone] [facility] N [id number] (Wo rk) [...] you attend hoahaoism or Patient refused 2020 shinto services? Do [...] Notes Telephone Encounter - Ian Kendrick - 12/21/2007 2:57 PM CDT Superficial vein thrombosis found on ultrasound from today. Spoke with Hematology. He will be referred for further workup of coagulatory defect. documented in this encounter Plan of Treatment Upcoming Encounters Date Type Specialty Care Team Description 05/20/2022 Lab Lab documented as of this encounter Procedures Procedure Name Priority Date/Time Associated Diagnosis Comme nts ZZ CONSULT ONCOLOGY/HEMATOLOGY Routine 01/04/2009 VENOUS THROMBOSIS NOS documented in this encounter Results CONSULT ONCOLOGY/HEMATOLOGY (01/04/2009) Narrative This result has an attachment that is no t available. Ian Kendrick MD REFERRAL documented in this encounter Visit Diagnoses Diagnosis VENOUS THROMBOSIS NOS - Primary Embolism and thrombosis of unspecified s ite documented in this encounter Care Teams Traveling Electrician Relationship Specialty Start Date End Date Ian Kendrick MD PCP - General 11/19/07 02/21/14 [facility] [address] [place] [address] documented as of this encounter
--- OUTSIDE RECORDS SUMMARY | 2022-05-15 22:41 | XMS_ITS | Encounter Summary ---
:1955 Author Organization [place] Address [address] [place] [address] Care Team Providers Name Role Phone Rad Carolina MD Primary Care Provider [phone] Reason for Visit Reason Comments Anticoagulation Encounter Details Date Type Department Care Team Description 12/21/2007 Office Visit [facility] Rad Carolina VENOUS THROMBOSIS NOS (Primary Dx); Clinic [place] Daniels MD Encounter for Long-Term (Current) Use of Anticoagulants [address] [facility] [id number] [facility] [phone] [place] [address] Social History Tobacco Use Types Packs/Day Years [...] you attend yazidi or Patient refused 2020 pentecostal services? Do [...] Sign Reading Time Taken Comments Blood Pressure 120/78 12/21/2007 10:30 AM CDT Pulse 72 12/21/2007 10:30 AM CDT Temperature 37 ??C (98.6 ??F) 12/21/2007 10:30 AM CDT Respiratory Rate - - Oxygen Saturation 99% 12/21/2007 10:30 AM CDT Inhaled Oxygen Concentration - - Weight 102.2 kg (225 lb 6.4 oz) 12/21/2007 10:30 AM CDT Height 180.3 cm (5' 11) 12/21/2007 10:30 AM CDT Body Mass Index 31.44 12/21/2007 10:30 AM CDT documented in this encounter Progress Notes Rad Carolina - 12/21/2007 1:28 PM CDT Virgil Christine is a 52 year old male who presents for evaluation of: 1. Persistent right lower extremity swelling following a DVT in February 2007. The swelling will wax and wane, but is always there. He reports discomfort when his leg swells. He also can't get his work boots on - and can't work without them. He tried lasix last month without any improvement. He also states that he is using compression stockings. He continues to be on warfarin. He had a repeat doppler in 07/31 which showed persistent clot in the superficial femoral vein. No chest pain or increased shortness of breath (except when he forgets his inhaler). Problems list, allergies, social and family history, and past medical history, are all reviewed and updated in [facility]. Current Outpatient Rx Name Route Sig Dispense Refill ??? QVAR 80 MCG/ACT IN AERS Inhalation 1 time am 1 time pm 2 1 year ??? ATROVENT HFA 17 MCG/ACT IN AERS Inhalation 2 puffs 4 times daily 2 1 year ??? PAROXETINE HCL 10 MG OR TABS Oral 1 TABLET DAILY 3 months 1 ??? LOMOTIL 2.5-0.025 MG/5ML OR LIQD Oral 1-2 TEASPOONFUL 4 TIMES DAILY NEEDED QS 3 months 1 ??? FUROSEMIDE 20 MG OR TABS Oral 1/2 to 1 TABLET DAILY as needed for leg swelling 30 0 ??? LOPERAMIDE HCL 2 MG OR CAPS Oral 2-4 caps po 4 times daily 480 6 months ??? WARFARIN SODIUM 10 MG OR TABS Oral 1 tab daily or as directed 3 months 1 year ??? WARFARIN SODIUM 3 MG OR TABS Oral 2 TABLETS DAILY- or as directed 3 month 1 year ??? FAMOTIDINE 20 MG OR TABS Oral 1 TABLET TWICE DAILY 60 0 ??? WARFARIN SODIUM 2 MG OR TABS Oral 1 TABLET DAILY 90 3 ??? ORDER FOR DME RINA hose or support stocking, knee high SZ M4 30-40 mmHg 1 pair 0 OBJECTIVE: BP 120/78 Pulse 72 Temp (Src) 98.6 ??F (37 ??C) (Oral) Ht 5' 11 (1.803 m) Wt 225 lb 6.4 oz (102.241 kg) SpO2 99% GENERAL APPEARANCE: healthy, alert and no distress RESP: lungs clear to auscultation - no rales, rhonchi or wheezes CV: regular rates and rhythm, normal S1 S2, no S3 or S4 and no murmur, click or rub - EXT: 2+ pitting edema in right lower extremity. Measures 46cm at calf and 18cm at ankle. Assessment/Plan: 453.9 VENOUS THROMBOSIS NOS (primary encounter diagnosis) Comment: Plan: DUPLEX EXTREM VENOUS,UNI OR LTD I suspect that his DVT has not resolved based on persistent swelling. ultrasound ordered for today.(he may run out of insurance today). I will likely have him see Hematology if there is persistent clot. continue warfarin in the meantime. I will contact the patient regarding his results and determinethe follow up plan at that time. V58.61 Encounter for Long-Term (Current) Use of Anticoagulants, Chronic Comment: Plan: INR POINT OF CARE Yulisa Acosta - 12/21/2007 10:46 AM CDT ANTICOAGULATION FOLLOW-UP CLINIC VISIT Patient Name: Virgil Christine Date: 12/21/2007 SUBJECTIVE: Bleeding Signs/Symptoms: None Thromboembolic Signs/Symptoms: None Medication Changes: No Dietary Changes: No Bacterial/Viral Infection: No Missed Coumadin Doses: None Other Concerns: No ASSESSMENT/PLAN: See: ANTICOAGULATION QIC flow sheet. RAD CAROLINA documented in this encounter Nursing Notes 12/21/2007 10:30 AM CDT >> EDGAR GOTTLIEB Mon Dec 21, 2007 10:50 AM Patient presents with: Anticoagulation Virgil Christine presents for as above. Initial BP 120/78 Pulse 72 Temp (Src) 98.6 ??F (37 ??C) (Oral) Ht 5' 11 (1.803 m) Wt 225 lb6.4 oz (102.241 kg) SpO2 99% Body mass index is 31.44 kg/(m^2).. BP completed using cuff size: large EDGAR GOTTLIEB STUDENT documented in this encounter Plan of Treatment Upcoming Encounters Date Type Specialty Care Team Description 05/20/2022 Lab Lab documented as of this encounter Procedures Procedure Name Priority Date/Time Associated Diagnosis Comme nts HCL INR POCT Routine 12/21/2007 Encounter for Long-Term Resu lts for this (Current) Use of procedure a re in the Anticoagulants results secti on. documented in this encounter Results INR POINT OF CARE (12/21/2007) P athologist Signature INR Point of 3.3 [facility] Rad Carolina MD LABORATORY Performing Organization Address City/State/ZIP Code Phon e Number [facility] documented in this encounter Visit Diagnoses Diagnosis VENOUS THROMBOSIS NOS - Primary Embolism and thrombosis of unspecified s ite snf (current) use of anticoagulant s Long-term (current) use of anticoagulant s documented in this encounter Care Teams Manager Special Events Relationship Specialty Start Date End Date Rad Carolina MD PCP - General 11/19/07 02/21/14 [facility] [address] [place] [address] documented as of this encounter
--- OUTSIDE RECORDS SUMMARY | 2022-05-15 22:41 | XMS_ITS | Encounter Summary ---
:1955 Author Organization [place] Address [address] [place] [address] Care Team Providers Name Role Phone Ian Kendrick MD Primary Care Provider [phone] Reason for Visit Reason Comments Anticoagulation Encounter Details Date Type Department Care Team Description 02/03/2008 [facility] Anticoagulation Visit [address] [address] Social History Tobacco Use [...] as of this encounter Progress Notes Yulisa Acosta - 02/03/2008 4:06 PM CDT 2ANTICOAGULATION FOLLOW-UP CLINIC VISIT Patient Name: Virgil Christine Date: 02/03/2008 SUBJECTIVE: Bleeding Signs/Symptoms: None Thromboembolic Signs/Symptoms: None Medication Changes: No Dietary Changes: No Bacterial/Viral Infection: No Missed Coumadin Doses: None Other Concerns: No ASSESSMENT/PLAN: See: ANTICOAGULATION QIC flow sheet. LV NURSE documented in this encounter Plan of Treatment Upcoming Encounters Date Type Specialty Care Team Description 05/20/2022 Lab Lab documented as of this encounter Procedures Procedure Name Priority Date/Time Associated Diagnosis Comme nts HCL INR POCT Routine 05/24/2008 Encounter for Long-Term Resu lts for this (Current) Use of procedure a re in the Anticoagulants results secti on. documented in this encounter Results INR POINT OF CARE (05/24/2008) P athologist Signature INR Point of 2.6 [facility] Ian Kendrick MD LABORATORY Performing Organization Address City/State/ZIP Code Phon e Number [facility] documented in this encounter Visit Diagnoses Diagnosis USP (current) use of anticoagulant s - Primary Long-term (current) use of anticoagulant s documented in this encounter Care Teams Roper Operator Relationship Specialty Start Date End Date Ian Kendrick MD PCP - General 11/19/07 02/21/14 [facility] [address] [place] [address] documented as of this encounter
--- OUTSIDE RECORDS SUMMARY | 2022-05-15 22:41 | XMS_ITS | Encounter Summary ---
:1955 Author Organization [place] Address [address] [place] [address] Care Team Providers Name Role Phone Ian Kendrick MD Primary Care Provider [phone] Encounter Details Date Type Department Care Team Description 01/11/2008 Orders Only [facility] Ian Kendrick DIAGNO SIS NOT YET Clinic [place] Daniels MD DEFINED (Primary Dx) [address] [facility] [phone] [address] [facility] [phone] [place] [address] (Wo rk) Social History Tobacco [...] you attend yarsani or Patient refused 2020 faith services? Do [...] Name Priority Date/Time Associated Diagnosis Comme nts SCANNED [facility]. LAB RESULTS Routine 01/11/2008 DIAGNOSIS NOT Y ET DEFINED documented in this encounter Results SCANNED MIS. LAB RESULTS (01/11/2008) Specimen (Source) Anatomical Location Collection Method / Collectio n Time Received Time / Laterality Volume 01/11/2008 Narrative This result has an attachment that is no t available. Ian Kendrick MD LABORATORY documented in this encounter Visit Diagnoses Diagnosis DIAGNOSIS NOT YET DEFINED - Primary documented in this encounter Care Teams Skein Tier Relationship Specialty Start Date End Date Ian Kendrick MD PCP - General 11/19/07 02/21/14 [place] [address] [place] [address] documented as of this encounter
--- OUTSIDE RECORDS SUMMARY | 2022-05-15 22:41 | XMS_ITS | Encounter Summary ---
:1955 Author Organization [place] Address [address] [place] [address] Care Team Providers Name Role Phone Unavailable Primary Care Provider Unavailable Reason for Visit Reason Comments Anticoagulation Encounter Details Date Type Department Care Team Description 11/13/2007 Allied [facility] Anticoagulation Visit [address] [address] Social History Tobacco Use Types Packs/Day Years Used Date Smoking Tobacco: Former Cigarettes Comments: 2004 Alcohol Use Standard Drinks/Week Comments Yes 0 (1 standard drink = 0.6 oz pure alcoho l) 4 BEERS A WEEK Alcohol Habits Answer Date Recorded How often do you have a drink containing 4 or more times a w stebbins 05/25/2021 alcohol? How many drinks containing alcohol [...] you attend voodoo or Patient refused 2020 jainism services? Do [...] this encounter Progress Notes Yulisa Acosta - 11/13/2007 11:26 AM CDT ANTICOAGULATION FOLLOW-UP CLINIC VISIT Patient Name: Virgil Christine Date: 11/13/2007 SUBJECTIVE: Bleeding Signs/Symptoms: None Thromboembolic Signs/Symptoms: None [...] Point of 3.3 [facility] Ian Kendrick MD LABORATORY Performing Organization Address City/State/ZIP Code Phon e Number [facility] documented in this encounter Visit Diagnoses Diagnosis ULCERATIVE COLITIS NOS Ulcerative colitis, unspecified VENOUS THROMBOSIS NOS Embolism and thrombosis of unspecified s ite manager terminal (current) use of anticoagulant s Long-term (current) use of anticoagulant s documented in this encounter
--- OUTSIDE RECORDS SUMMARY | 2022-05-15 22:41 | XMS_ITS | Encounter Summary ---
:1955 Author Organization [place] Address [address] [place] [address] Care Team Providers Name Role Phone Ian Kendrick MD Primary Care Provider Encounter Details Date Type Department Care Team Description 01/10/2008 Orders Only [facility] Ina Kendrick DIAGNO SIS NOT YET Clinic [place] Daniels MD DEFINED (Primary Dx) [address] [facility] [phone] [address] [facility] [phone] [place] [address] (Wo rk) Social History Tobacco [...] you attend christian or Patient refused 2020 faith services? Do [...] Priority Date/Time Associated Diagnosis Comme nts SCANNED MISC. LAB Routine 01/10/2008 DIAGNOSIS NOT YET RESULTS DEFINED HCL POTASSIUM Routine 01/10/2008 DIAGNOSIS NOT YET Results f or this DEFINED procedure are i n the results section . HCL GLUCOSE Routine 01/10/2008 DIAGNOSIS NOT YET Results fo r this DEFINED procedure are i n the results section . HCL SODIUM Routine 01/10/2008 DIAGNOSIS NOT YET Results fo r this DEFINED procedure are i n the results section . HCL CREATININE Routine 01/10/2008 DIAGNOSIS NOT YET Results for this DEFINED procedure are i n the results section . documented in this encounter Results CREATININE (01/10/2008) P athologist Signature Creatinine 0.88 mg/dL [facility] Specimen (Source) Anatomical Location Collection Method / Collectio n Time Received Time / Laterality Volume 01/10/2008 Ian Kendrick MD LABORATORY Performing Organization Address City/State/ZIP Code Phon e Number [facility] GLUCOSE (01/10/2008) P athologist Signature Glucose 106 mg/dL [facility] Specimen (Source) Anatomical Location Collection Method / Collectio n Time Received Time / Laterality Volume 01/10/2008 Ian Kendrick MD LABORATORY Performing Organization Address City/[facility]/ZIP Code Phon e Number [facility] POTASSIUM (01/10/2008) P athologist Signature Potassium 4.1 mmol/L [facility] Specimen (Source) Anatomical Location Collection Method / Collectio n Time Received Time / Laterality Volume 01/10/2008 Ian Kendrick MD LABORATORY Performing Organization Address City/State/ZIP Code Phon e Number [facility] SODIUM (01/10/2008) P athologist Signature Sodium 138 mmol/L [facility] Specimen (Source) Anatomical Location Collection Method / Collectio n Time Received Time / Laterality Volume 01/10/2008 Ian Kendrick MD LABORATORY Performing Organization Address City/State/ZIP Code Phon e Number [facility] SCANNED MISC. LAB RESULTS (01/10/2008) Specimen (Source) Anatomical Location Collection Method / Collectio n Time Received Time / Laterality Volume 01/10/2008 Narrative This result has an attachment that is no t available. Ian Kendrick MD LABORATORY Performing Organization Address City/State/ZIP Code Phon e Number [facility] documented in this encounter Visit Diagnoses Diagnosis DIAGNOSIS NOT YET DEFINED - Primary documented in this encounter Care Teams Medical Billing Service Relationship Specialty Start Date End Date Ian Kendrick MD PCP - General 11/19/07 02/21/14 [place] [id number] [place] [address] documented as of this encounter
--- OUTSIDE RECORDS SUMMARY | 2022-05-15 22:41 | XMS_ITS | Encounter Summary ---
:1955 Author Organization [place] Address [address] [place] [address] Care Team Providers Name Role Phone Ian Kendrick MD Primary Care Provider [phone] Reason for Visit Reason Onset Date Comments Patient Request 11/30/2007 see note Encounter Details Date Type Department Care Team Description 11/30/2007 Telephone [facility] Ian Kendrick t Request (see Clinic Holderness MD Jeremiah note) [address] [place], [place] [address] [facility] [address] [facility] [phone] [place] [address] (Wo rk) Social History Tobacco Use Types Packs/Day Years Used Date Smoking Tobacco: Former Cigarettes Comments: 2004 Alcohol Use Standard Drinks/Week Comments Yes 0 (1 standard drink = 0.6 oz pure alcoho l) 4 BEERS A WEEK Alcohol Habits Answer Date Recorded How often do you have a drink containing 4 or more times a w douglas 05/25/2021 alcohol? How many drinks containing alcohol [...] Notes Telephone Encounter - Marco Pak - 2007 1:12 PM CDT Ok to close encounter. Pharm found the order. Marco Pak CMA Telephone Encounter - Pasha Marco - 11/30/2007 4:49 PM CDT Got a call from [employer] [phone]. States that the pt was there to pickup anti embolisim stockings. I did not see anything ordered. Was asked to leave a message to have SB send over an rx the nextday. Pt did state that he received a massage form someone on his phone but i did not see an encounter. He wasn't sure if it was from us or the pharm. Marco Pak CMA documented in this encounter Plan of Treatment Upcoming Encounters Date Type Specialty Care Team Description 05/20/2022 Lab Lab documented as of this encounter Visit Diagnoses Not on filedocumented in this encounter Care Teams Probation Worker Relationship Specialty Start Date End Date Ian Kendrick MD PCP - General 11/19/07 02/21/14 [facility] [address] [place] [address] documented as of this encounter
--- OUTSIDE RECORDS SUMMARY | 2022-05-15 22:41 | XMS_ITS | Encounter Summary ---
:1955 Author Organization [facility] Address [address] [place] [address] Care Team Providers Name Role Phone Ian Kendrick MD Primary Care Provider [phone] Encounter Details Date Type Department Care Team Description 01/10/2008 Historic Results [facility] [place] [address] [place] [address] [facility] [phone] [place] [address] (Wo rk) Social History Tobacco Use Types Packs/Day Years Used Date Smoking Tobacco: Former Cigarettes Comments: 2004 Alcohol Use Standard Drinks/Week Comments Yes 0 (1 standard drink = 0.6 oz pure alcoho l) 4 BEERS A WEEK Alcohol Habits Answer Date Recorded How often do you have a drink containing 4 or more times a w [place] 05/25/2021 alcohol? How many drinks containing [...] you attend taoist or Patient refused 2020 scientology services? Do [...] Procedure Name Priority Date/Time Associated Comments Diagnosis ROUTINE UA WITH STAT 01/10/2008 5:40 PM Result s for this MICROSCOPIC CDT procedure are i n the results section. URINE CULTURE STAT 01/10/2008 5:40 PM Results for this CDT procedure are i n the results section. RAPID STREP SCREEN STAT 01/10/2008 5:20 PM Res ults for this THROAT SWAB CDT procedure are i n the results section. BLOOD CULTURE STAT 01/10/2008 5:20 PM Results for this CDT procedure are i n the results section. BETA HEMOLYTIC STREP Routine 01/10/2008 5:20 PM R esults for this GROUP A CULTURE CDT procedure ar e in the results section. CBC WITH PLATELETS & STAT 01/10/2008 5:00 PM R esults for this DIFFERENTIAL CDT procedure are i n the results section. INR STAT 01/10/2008 5:00 PM Results f or this CDT procedure are i n the results section. BLOOD CULTURE STAT 01/10/2008 5:00 PM Results for this CDT procedure are i n the results section. BASIC METABOLIC PANEL STAT 01/10/2008 5:00 PM Results for this CDT procedure are i n the results section. documented in this encounter Results (ABNORMAL) Routine UA with microscopic (01/10/2008 5:40 PM CDT) [facility] Method Time Signature Source Midstream MISYS Urine Color Urine Yellow MISYS Appearance Urine Clear MISYS Glucose Urine Negative NEG mg/dL MISYS Bilirubin Urine Negative NEG MISYS Ketones Urine Negative NEG mg/dL MISYS Specific [place] 1.018 1.003 - MISYS Urine 1.035 Blood Urine Negative NEG MISYS pH Urine 5.0 5.0 - 7.0 MISYS pH Protein Albumin 10 (A) NEG mg/dL MISYS Urine Urobilinogen Normal 0.0 - 2.0 MISYS mg/dL mg/dL Nitrite Urine Negative NEG MISYS Leukocyte Negative NEG MISYS Esterase Urine WBC Urine 1 0 - 2 MISYS /HPF RBC Urine <1 0 - 2 MISYS /HPF Mucous Urine Present (A) NEG /LPF MISYS Specimen Anatomical Collection Method Collection Time Receive d Time (Source) Location / / Volume Laterality 01/10/2008 5:40 PM 8 4:50 CDT PM CDT Gary Leblanc MD LAB - URINE ORDERABLES Performing Organization Address City/[facility] Code Phon e Number MISYS Urine culture (01/10/2008 5:40 PM CDT) [facility] Method Time Signature Specimen Midstream MISYS Description Urine Culture Micro No growth MISYS Micro Report FINAL MISYS Status 01/12/2008 Specimen Anatomical Collection Method Collection Time Receive d Time (Source) Location / / Volume Laterality 01/10/2008 5:40 PM 8 4:50 CDT PM CDT Gary Leblanc MD LAB - MICRO GENERAL ORDERABL ES Performing Organization Address [facility] Phon e Number MISYS Blood culture (01/10/2008 5:20 PM CDT) [facility] Intent Method Time Signature Specimen Left Arm MISYS Description Culture Micro No growth MISYS after 6 days Micro Report FINAL MISYS Status [id number] Specimen Anatomical Collection Method Collection Time Receive d Time (Source) Location / / Volume Laterality 01/10/2008 5:20 PM 8 4:50 CDT PM CDT Gary Leblanc MD LAB - MICRO GENERAL ORDERABL ES Performing Organization Address [facility] Phon e Number MISYS Rapid strep screen (01/10/2008 5:20 PM CDT) Component Value Ref Test Analysis Performed At [facility] Intent Range Method Time Signature Specimen Throat MISYS Description Micro Report FINAL 01/10/2008 MISYS Status Rapid Strep A NEGATIVE: No MISYS Screen Group A streptococcal antigen detected by immunoassay, await Comment: culture report. Specimen Anatomical Collection Method Collection Time Receive d Time (Source) Location / / Volume Laterality 01/10/2008 5:20 PM 8 4:50 CDT PM CDT Gary Leblanc MD LAB - MICRO GENERAL ORDERABL ES Performing Organization Address [facility] Phon e Number MISYS Beta strep group A culture (01/10/2008 5:20 PM CDT) Component Value Ref Test Analysis Performed At [facility] Intent Range Method Time Signature Specimen Throat MISYS Description Culture Micro No beta MISYS hemolytic Streptococcus Group A isolated Micro Report FINAL 01/12/2008 MISYS Status Specimen Anatomical Collection Method Collection Time Receive d Time (Source) Location / / Volume Laterality 01/10/2008 5:20 PM 8 5:52 CDT PM CDT Ian Kendrick MD LAB - MICRO GENERAL ORDERABL ES Performing Organization Address City/State/ZIP Code Phon e Number MISYS (ABNORMAL) CBC with platelets differential (01/10/2008 5:00 PM CDT) Patholo gist Method Time Signature MCV 87 78 - 100 MISYS fl MCH 29.1 26.5 - MISYS 33.0 pg MCHC 33.6 31.5 - MISYS 36.5 g/dL RDW 14.4 10.0 - MISYS 15.0 % WBC 7.1 4.0 - MISYS 11.0 10e9/L RBC Count 4.95 4.4 - 5.9 MISYS 10e12/L Hemoglobin 14.4 13.3 - MISYS 17.7 g/dL Hematocrit 42.9 40.0 - MISYS 53.0 % % Neutrophils 87 (H) 40 - 75 % MISYS % Lymphocytes 8 (L) 20 - 48 % MISYS % Monocytes 5 0 - 12 % MISYS % Eosinophils 0 0 - 6 % MISYS % Basophils 0 0 - 2 % MISYS Platelet Count 180 150 - 450 MISYS 10e9/L Absolute 6.2 1.6 - 8.3 MISYS Neutrophil 10e9/L Absolute 0.6 (L) 0.8 - 5.3 MISYS Lymphocytes 10e9/L Absolute 0.4 0.0 - 1.3 MISYS Monocytes 10e9/L Absolute 0.0 0.0 - 0.7 MISYS Eosinophils 10e9/L Absolute 0.0 0.0 - 0.2 MISYS Basophils 10e9/L Diff Method Automated MISYS Method Specimen Anatomical Collection Method Collection Time Receive d Time (Source) Location / / Volume Laterality 01/10/2008 5:00 PM 8 4:50 CDT PM CDT Gary Leblanc MD LAB - BLOOD ORDERABLES Performing Organization Address City/State/ZIP Code Phon e Number MISYS (ABNORMAL) INR (01/10/2008 5:00 PM CDT) P athologist Signature INR 1.99 (H) 0.86 - 1.14 MISYS Specimen Anatomical Collection Method Collection Time Receive d Time (Source) Location / / Volume Laterality 01/10/2008 5:00 PM 8 4:50 CDT PM CDT Gary Leblanc MD LAB - BLOOD ORDERABLES Performing Organization Address City/State/ZIP Code Phon e Number MISYS (ABNORMAL) Basic metabolic panel (01/10/2008 5:00 PM CDT) P athologist Signature Sodium 138 133 - 144 MISYS mmol/L Potassium 4.1 3.4 - 5.3 MISYS mmol/L Chloride 102 94 - 109 MISYS mmol/L Carbon Dioxide 25 20 - 32 MISYS mmol/L Glucose 106 (H) 60 - 99 MISYS mg/dL Urea Nitrogen 12 7 - 30 MISYS mg/dL Creatinine 0.88 0.66 - MISYS 1.25 mg/dL Comment: New IDMS-traceable calibration beginning 10/22/07 GFR Estimate >90 >60 mL/min/1.7m2 MISYS GFR Estimate If Black >90 >60 mL/min/1.7m2 M ISYS Calcium 8.8 8.5 - 10.4 mg/dL MISYS Anion Gap 11 6 - 17 mmol/L MISYS Specimen Anatomical Collection Method Collection Time Receive d Time (Source) Location / / Volume Laterality 01/10/2008 5:00 PM 8 4:50 CDT PM CDT Gary Leblanc MD LAB - BLOOD ORDERABLES Performing Organization Address City/[facility] Phon e Number MISYS Blood culture (01/10/2008 5:00 PM CDT) Patholo gist Method Time Signature Specimen Blood MISYS Description Culture Micro No growth MISYS after 6 days Micro Report FINAL MISYS Status [id number] Specimen Anatomical Collection Method Collection Time Receive d Time (Source) Location / / Volume Laterality 01/10/2008 5:00 PM 8 4:50 CDT PM CDT Gary Leblanc MD LAB - MICRO GENERAL ORDERABL ES Performing Organization Address City/[facility]/ZIP Code Phon e Number MISYS documented in this encounter Visit Diagnoses Not on filedocumented in this encounter Care Teams Crop And Soil Scientist Relationship Specialty Start Date End Date Ian Kendrick MD PCP - General 11/19/07 02/21/14 [facility] [address] [place] [address] documented as of this encounter
--- OUTSIDE RECORDS SUMMARY | 2022-05-15 22:41 | XMS_ITS | Encounter Summary ---
:1955 Author Organization [facility] Address [address] [place] [address] Care Team Providers Name Role Phone Ian Kendrick MD Primary Care Provider [phone] Encounter Details Date Type Department Care Team Description 01/11/2008 Orders Only [facility] Ian Kendrick DIAGNO SIS NOT YET Clinic Endeavorsandee Daniels MD DEFINED (Primary Dx) [address] [facility] [address] [address] [facility] [phone] [place] [address] (Wo rk) Social History Tobacco Use Types Packs/Day Years Used Date Smoking Tobacco: Former Cigarettes Comments: 2004 Alcohol Use Standard Drinks/Week Comments Yes 0 (1 standard drink = 0.6 oz pure alcoho l) 4 BEERS A WEEK Alcohol Habits Answer Date Recorded How often do you have a drink containing 4 or more times a w [place] 05/25/2021 alcohol? How many drinks containing alcohol [...] you attend druze or Patient refused 2020 episcopalian services? Do [...] Associated Diagnosis Comme nts SCANNED MISC. LAB RESULTS Routine 01/11/2008 DIAGNOSIS NOT Y ET DEFINED documented in this encounter Results SCANNED MISC. LAB RESULTS (01/11/2008) Narrative This result has an attachment that is no t available. Ian Kendrick MD LABORATORY Performing Organization Address City/State/[facility] Code Phon e Number MISYS documented in this encounter Visit Diagnoses Diagnosis DIAGNOSIS NOT YET DEFINED - Primary documented in this encounter Care Teams Corporate Events Director Relationship Specialty Start Date End Date Ian Kendrick MD PCP - General 11/19/07 02/21/14 [place] [address] [place] [address] documented as of this encounter
--- OUTSIDE RECORDS SUMMARY | 2022-05-15 22:41 | XMS_ITS | Encounter Summary ---
:1955 Author Organization [facility] Address [address] [place] [address] Care Team Providers Name Role Phone Ian Kendrick MD Primary Care Provider [phone] Reason for Visit Reason Onset Date Comments Refill Request 12/21/2007 warfarin Encounter Details Date Type Department Care Team Description 12/21/2007 Refill [facility] Ian Kendrick Refill Request [facility] MD Jeremiah (warfarin ) [address] [place] [address] [place] [id number] [facility] [phone] [place] [address] (Wo rk) Social History Tobacco Use Types Packs/Day Years Used Date Smoking Tobacco: Former Cigarettes Comments: 2004 Alcohol Use Standard Drinks/Week Comments Yes 0 (1 standard drink = 0.6 oz pure alcoho l) 4 BEERS A WEEK Alcohol Habits Answer Date Recorded How often do you have a drink containing 4 or more times a w [place] 05/25/2021 alcohol? How many drinks containing alcohol [...] you attend scientologist or Patient refused 2020 mosque services? Do [...] Notes Telephone Encounter - Yulisa Acosta - 12/21/2007 11:10 AM CDT Rx filled per nursing protocol. Nadiya Acosta RN documented in this encounter Plan of Treatment Upcoming Encounters Date Type Specialty Care Team Description 05/20/2022 Lab Lab documented as of this encounter Visit Diagnoses Diagnosis Edema leg Edema VENOUS THROMBOSIS NOS Embolism and thrombosis of unspecified s ite documented in this encounter Care Teams Fullerette Relationship Specialty Start Date End Date Ian Kendrick MD PCP - General 11/19/07 02/21/14 [place] [address] [place] [address] documented as of this encounter
--- OUTSIDE RECORDS SUMMARY | 2022-05-15 22:41 | XMS_ITS | Encounter Summary ---
:1955 Author Organization [facility] Address [address] [place] [address] Care Team Providers Name Role Phone Ian Kendrick MD Primary Care Provider [phone] Reason for Visit Reason Comments Anticoagulation Encounter Details Date Type Department Care Team Description 11/27/2007 [facility] Health[facility] Anticoagulation Visit [address] [address] Social History Tobacco Use Types Packs/Day Years Used Date Smoking Tobacco: Former Cigarettes Comments: 2004 Alcohol Use Standard Drinks/Week Comments Yes 0 (1 standard drink = 0.6 oz pure alcoho l) 4 BEERS A WEEK Alcohol Habits Answer Date Recorded How often do you have a drink containing 4 or more times a w [place] 05/25/2021 alcohol? How many drinks containing alcohol [...] you attend scientologist or Patient refused 2020 jain services? Do [...] this encounter Progress Notes Yulisa Acosta - 11/27/2007 12:03 PM CDT ANTICOAGULATION FOLLOW-UP CLINIC VISIT Patient Name: Virgil Christine Date: 11/27/2007 SUBJECTIVE: Bleeding Signs/Symptoms: None Thromboembolic Signs/Symptoms: None Medication Changes: Yes- lasix Dietary Changes: No Bacterial/Viral Infection: No Missed Coumadin Doses: None Other Concerns: No ASSESSMENT/PLAN: See: ANTICOAGULATION QIC flow sheet. LV NURSE documented in this encounter Plan of Treatment Upcoming Encounters Date Type Specialty Care Team Description 05/20/2022 Lab Lab documented as of this encounter Procedures Procedure Name Priority Date/Time Associated Diagnosis Comme nts HCL INR POCT Routine 11/27/2007 Encounter for Long-Term Resu lts for this (Current) Use of procedure a re in the Anticoagulants results secti on. 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
--- OUTSIDE RECORDS SUMMARY | 2022-05-15 22:41 | XMS_ITS | Encounter Summary ---
:1955 Author Organization [facility] Address [address] [place] [address] Care Team Providers Name Role Phone Ian Kendrick MD Primary Care Provider [phone] Encounter Details Date Type Department Care Team Description 01/10/2008 Results Only [facility] Gary Burkett MD Hospital Results [facility] [address] [place] [address] (Wo rk) Social History Tobacco Use Types [...] you attend jewish or Patient refused 2020 hinduism services? Do [...] Procedure Name Priority Date/Time Associated Diagnosis Comme [facility] CHEST TWO VIEWS, Routine 01/10/2008 5:37 PM Re sults for this FRONT/LAT CDT procedure are i n the results section. documented in this encounter Results CHEST X-RAY 2 VW (01/10/2008 5:37 PM CDT) Anatomical Region Laterality Modality Other Specimen (Source) Anatomical Collection Method Collection Time Re ceived Time Location / / Volume Laterality 01/10/2008 5:37 PM CDT Impressions 01/11/2008 8:28 AM CDT EXAM: ??CHEST TWO VIEW* HISTORY: ??Fever. IMPRESSION: Negative. Gary Leblanc MD GENERAL IMAGING documented in this encounter Visit Diagnoses Not on filedocumented in this encounter Care Teams Furniture Painter Relationship Specialty Start Date End Date Ian Kendrick MD PCP - General 11/19/07 02/21/14 [facility] [address] [place] [address] documented as of this encounter
--- OUTSIDE RECORDS SUMMARY | 2022-05-15 22:41 | XMS_ITS | Encounter Summary ---
:1955 Author Organization [facility] Address [address] [place] [address] Care Team Providers Name Role Phone Ian Kendrick MD Primary Care Provider [phone] Reason for Visit Reason Comments Anticoagulation Encounter Details Date Type Department Care Team Description 12/03/2007 Allied Health/[facility]urse [facility] Anticoagulation Visit [address] [address] Social History Tobacco Use [...] you attend restorationist or Patient refused 2020 pentecostal services? Do [...] this encounter Progress Notes Yulisa Acosta - 12/03/2007 2:28 PM CDT ANTICOAGULATION FOLLOW-UP CLINIC VISIT Patient Name: Virgil Christine Date: 12/03/2007 SUBJECTIVE: Bleeding Signs/Symptoms: None Thromboembolic Signs/Symptoms: None [...] Diagnosis Comme nts HCL INR POCT Routine 12/03/2007 Encounter for Long-Term Resu lts for this (Current) Use of procedure a re in the Anticoagulants results secti on. 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
--- OUTSIDE RECORDS SUMMARY | 2022-05-15 22:41 | XMS_ITS | Encounter Summary ---
:1955 Author Organization [facility] Address [address] [place] [address] Care Team Providers Name Role Phone Ian Kendrick MD Primary Care Provider [phone] Encounter Details Date Type Department Care Team Description 12/21/2007 Results Only [facility] [place] [address] [place] [address] [facility] [phone] [facility] [address] [address] (Wo rk) Social History Tobacco Use Types Packs/Day Years Used Date Smoking Tobacco: Former Cigarettes Comments: 2004 Alcohol Use Standard Drinks/Week Comments Yes 0 (1 standard drink = 0.6 oz pure alcoho l) 4 BEERS A WEEK Alcohol Habits Answer Date Recorded How often do you have a drink containing 4 or more times a w [place] 05/25/2021 alcohol? How many drinks containing alcohol [...] you attend samaritan or Patient refused 2020 mormonism services? Do [...] Procedure Name Priority Date/Time Associated Diagnosis Comme [facility] ZZ RT DUPLEX Routine 12/21/2007 2:26 PM Results for this EXTREM VENOUS,UNI CDT procedure are in OR LTD the results section. documented in this encounter Results RT DUPLEX EXTREM VENOUS,UNI OR LTD (12/21/2007 2:26 PM CDT) Anatomical Region Laterality Modality Other Specimen (Source) Anatomical Collection Method Collection Time Re ceived Time Location / / Volume Laterality 12/21/2007 2:26 PM CDT Impressions 12/21/2007 2:43 PM CDT US VENOUS LOWER EXTEMITY UNI RIGHT HISTORY: ??Right leg edema. ??Rule out D VT. 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 ??Read and call to [phone]. FINDINGS: DVT involving the superficial femoral vein to the right leg. Remainder of the deep venous system is p atent. Ian Kendrick MD SPECIAL IMAGING STUDIES documented in this encounter Visit Diagnoses Not on filedocumented in this encounter Care Teams Icer Air Conditioning Relationship Specialty Start Date End Date Ian Kendrick MD PCP - General 11/19/07 02/21/[address] [address] documented as of this encounter
--- OUTSIDE RECORDS SUMMARY | 2022-05-15 22:41 | XMS_ITS | Encounter Summary ---
:1955 Author Organization [facility] Address [address] [place] [address] Care Team Providers Name Role Phone Ian Kendrick MD Primary Care Provider [phone] Encounter Details Date Type Department Care Team Description 05/03/2008 Medical Correspondence [facility] Polo Kendrick [facility] BRIDGES TO ACCESS [facility] MD Jeremiah [address] [address] [facility] [phone] [place] [address] Social History Tobacco Use Types Packs/Day Years Used Date Smoking Tobacco: Former Cigarettes Comments: 2004 Alcohol Use Standard Drinks/Week Comments Yes 0 (1 standard drink = 0.6 oz pure alcoho l) 4 BEERS A WEEK Alcohol Habits Answer Date Recorded How often do you have a drink containing 4 or more times a w [place] 05/25/2021 alcohol? How many drinks containing alcohol [...] you attend christian or Patient refused 2020 orthodoxy services? Do [...] on filedocumented in this encounter Care Teams Breast Worker Relationship Specialty Start Date End Date Ian Kendrick MD PCP - General 11/19/07 02/21/14 [facility] [address] [place] [address] documented as of this encounter
--- OUTSIDE RECORDS SUMMARY | 2022-05-15 22:41 | XMS_ITS | Encounter Summary ---
:1955 Author Organization [facility] Address [address] [place] [address] Care Team Providers Name Role Phone Ian Kendrick MD Primary Care Provider [phone] Encounter Details Date Type Department Care Team Description 01/10/2008 Emergency room Chato Rocha MD EMERGENCY PHYSIC [facility] [address] [place] [address] (Wo rk) Social History [...] documented as of this encounter Progress Notes Gary Rocha - 01/17/2008 4:58 PM CDT FINAL CHIEF COMPLAINT: Fever. HISTORY OF PRESENT ILLNESS: A 52-year-old male who reports that he was doing well, except for a recent diagnosis of a DVT on December 21, 2007. He reports that he was woke up at 0100 this morning with a fever which slowly climbed from 101.8 to 103.0. It did defervesce but reoccurred today. He says that since February when he was diagnosed with the DVT his right leg has always been swollen, better over the last day as well. He has had no runny nose, sore throat, he has had some headache and ringing over his left ear for the last year. He has had some diarrhea, but has chronic form since he has colitisand he has had a colectomy. He says he has had no nausea, no cough, runny nose, sore throat, and he has not been lightheaded or had any passing out. MEDICATIONS: Extra Strength Tylenol, , warfarin, paroxetine, albuterol. ALLERGIES: No known drug allergies. PAST MEDICAL HISTORY: Ulcerative colitis, asthma, tonsillectomy, and prior DVT. SOCIAL HISTORY: The patient does smoke, denies alcohol use. REVIEW OF SYSTEMS: A 7-point review of systems was negative, except as noted in the history of present illness. PHYSICAL EXAMINATION: GENERAL APPEARANCE: The patient is a well-developed, pleasant, 52-year-old male. VITAL SIGNS: Temperature 103, blood pressure 122/75, pulse 106, respirations 18, satting 98% on room air. Pulse prior to discharge was 85 and blood pressure 110/68. HEENT: Normocephalic. Cranial nerves are grossly intact. Mucous membranes are moist. Extraocular movements normal without nystagmus. There is no pain with palpation over the frontal sinuses. NECK: Supple without meningismus. LUNGS: Clear. HEART: Tachycardia rhythm. ABDOMEN: Soft, nontender. No guarding or rebound. EXTREMITIES: He has right lower extremity swelling. He has good distal pulses. SKIN: The skin is warm, pink without any rashes or petechia. NEUROLOGIC: The patient is intact. PSYCHIATRIC: Psychiatrically the patient was appropriate. LABORATORY AND DIAGNOSTICS: His previous studies including his ultrasound from December 20 were reviewed. He does have a DVT. Chest x-ray today demonstrates no signs of any infiltrate. Urine showed no overt signs of an infection. Urine culture is pending. Rapid strep was negative. Blood cultures are pending. BMP demonstrated a normal Co2, INR was 1.99. White count was 7.1. EMERGENCY DEPARTMENT COURSE: The patient reports that he has had a fever and has a right lower extremity which is swollen. However, he reports that this is better and he has a known DVT which could bethe cause of his fever. However, this was diagnosed approximately a little over 2 weeks ago. The patient could also have upper respiratory infection as well. I did send off urine culture to look at hisurine which appeared to be clean as well as a chest x-ray. At this point, he is not requiring antibiotics while the cultures are pending. He is stable at this time and he was treated in the ER. He did have an IV placed and was bolused with 1 liter of normal saline over 1 hour for rehydration due to his fever. He was treated with 1 gram of Tylenol and his skin felt much cooler and his heart rate did come down. The patient was able to be discharged. He was told to return if he had any problems and he is to follow up with the spragger tomorrow. We also did discuss the chest pain and shortness of breath and the symptoms to return to the ER for. There are no signs of PE at this time. PLAN: Ibuprofen or Tylenol for fever, follow up with Hematology tomorrow as we discussed, return tothe ER with fevers, chills, new problems, chest pain, shortness of breath, or any other concerns. Follow up with your doctor and spragger in 1 days. EMERGENCY DEPARTMENT DIAGNOSES: 1. Fever. 2. Deep venous thrombosis. 3. Ulcerative colitis. 4. Joint pain. Electronically signed on 01/17/2008 16:57 by GARY ROCHA MD MT: [id number] Name: ANITA CHRISTINE MRN: [id number] Account: [id number] : 1955 Visit Date: 01/10/2008 Document: [id number] cc: Ian Kendrick MD documented in this encounter Plan of Treatment Upcoming Encounters Date Type Specialty Care Team Description 05/20/2022 Lab Lab documented as of this encounter Visit Diagnoses Not on filedocumented in this encounter Care Teams Rope Twisting Machine Operator Relationship Specialty Start Date End Date Ian Kendrick MD PCP - General 11/19/07 02/21/14 [facility] [address] [place] [address] documented as of this encounter
--- OUTSIDE RECORDS SUMMARY | 2022-05-15 22:41 | XMS_ITS | Encounter Summary ---
:1955 Author Organization [facility] Address [address] [place] [address] Care Team Providers Name Role Phone Ian Kendrick MD Primary Care Provider [phone] Reason for Visit Reason Comments Anticoagulation Encounter Details Date Type Department Care Team Description 05/24/2008 Allied Health/Nurse [facility] Anticoagulation Visit [address] [address] Social History Tobacco [...] you attend jainism or Patient refused 2020 voodoo services? Do [...] this encounter Progress Notes Yulisa Acosta - 05/24/2008 10:39 AM CST ANTICOAGULATION FOLLOW-UP CLINIC VISIT Patient Name: Virgil Christine Date: 05/24/2008 SUBJECTIVE: Bleeding Signs/Symptoms: None Thromboembolic Signs/Symptoms: None Medication Changes: No Dietary Changes: No Bacterial/Viral Infection: No Missed Coumadin Doses: None Other Concerns: No ASSESSMENT/PLAN: See: ANTICOAGULATION QIC flow sheet. LV NURSE TIC TILE SETTER documented in this encounter Plan of Treatment Upcoming Encounters Date Type Specialty Care Team Description 05/20/2022 Lab Lab documented as of this encounter Visit Diagnoses Diagnosis detention (current) use of anticoagulant s - Primary Long-term (current) use of anticoagulant s documented in this encounter Care Teams Assistant Golf Course Superintendent Relationship Specialty Start Date End Date Ian Kendrick MD PCP - General 11/19/07 02/21/14 [facility] [id number] [place] [address] documented as of this encounter
--- OUTSIDE RECORDS SUMMARY | 2022-05-15 22:41 | XMS_ITS | Encounter Summary ---
:1955 Author Organization [facility] Address [address] [place] [address] Care Team Providers Name Role Phone Ian Kendrick MD Primary Care Provider [phone] Reason for Visit Reason Comments Anticoagulation Encounter Details Date Type Department Care Team Description 01/04/2008 Allied Health[facility] Anticoagulation Visit [address] [address] Social History Tobacco Use [...] this encounter Progress Notes Yulisa Acosta - 01/04/2008 1:21 PM CDT ANTICOAGULATION FOLLOW-UP CLINIC VISIT Patient Name: Virgil Christine Date: 01/04/2008 SUBJECTIVE: Bleeding Signs/Symptoms: None Thromboembolic Signs/Symptoms: None [...] Diagnosis Comme nts HCL INR POCT Routine 01/04/2008 Encounter for Long-Term Resu lts for this (Current) Use of procedure a re in the Anticoagulants results secti on. documented in this encounter Results INR POINT OF CARE (01/04/2008) P athologist Signature INR Point of 2.7 [facility] Ian Kendrick MD LABORATORY Performing Organization Address City/State/ZIP Code Phon e Number [facility] documented in this encounter Visit Diagnoses Diagnosis terminal system operator (current) use of anticoagulant s - Primary Long-term (current) use of anticoagulant s VENOUS THROMBOSIS NOS Embolism and thrombosis of unspecified s ite documented in this encounter Care Teams Slice Plug Cutter Operator Relationship Specialty Start Date End Date Ian Kendrick MD PCP - General 11/19/07 02/21/14 [facility] [address] [place] [address] documented as of this encounter
--- OUTSIDE RECORDS SUMMARY | 2022-05-15 22:41 | XMS_ITS | Encounter Summary ---
:1955 Author Organization [facility] Address [address] [place] [address] Care Team Providers Name Role Phone Ian Kendrick MD Primary Care Provider [phone] Reason for Visit Reason Comments Anticoagulation Encounter Details Date Type Department Care Team Description 03/29/2008 Allied Health/Nurse [facility] Anticoagulation Visit [address] [address] Social History Tobacco [...] you attend rastafari or Patient refused 2020 druze services? Do [...] this encounter Progress Notes Yulisa Acosta - 03/29/2008 3:08 PM CDT ANTICOAGULATION FOLLOW-UP CLINIC VISIT Patient Name: Virgil Christine Date: 03/29/2008 SUBJECTIVE: Bleeding Signs/Symptoms: None Thromboembolic Signs/Symptoms: None Medication Changes: No Dietary Changes: No Bacterial/Viral Infection: Yes - fever, chills, muscle aches joint pain x 2 days Missed Coumadin Doses: None Other Concerns: No ASSESSMENT/PLAN: See: ANTICOAGULATION QIC flow sheet. LV NURSE documented in this encounter Plan of Treatment Upcoming Encounters Date Type Specialty Care Team Description 05/20/2022 Lab Lab documented as of this encounter Procedures Procedure Name Priority Date/Time Associated Diagnosis Comme nts HCL INR POCT Routine 03/29/2008 Encounter for Long-Term Resu lts for this (Current) Use of procedure a re in the Anticoagulants results secti on. documented in this encounter Results INR POINT OF CARE (03/29/2008) P athologist Signature INR Point of 2.3 [facility] Ian Kendrick MD LABORATORY Performing Organization Address City/State/ZIP Code Phon e Number [facility] documented in this encounter Visit Diagnoses Diagnosis VENOUS THROMBOSIS NOS - Primary Embolism and thrombosis of unspecified s ite buttermaker continuous churn (current) use of anticoagulant s Long-term (current) use of anticoagulant s documented in this encounter Care Teams Patient Service Specialist Relationship Specialty Start Date End Date Ian Kendrick MD PCP - General 11/19/07 02/21/14 [facility] [address] [place] [address] documented as of this encounter
--- OUTSIDE RECORDS SUMMARY | 2022-05-15 22:41 | XMS_ITS | Encounter Summary ---
:1955 Author Organization [facility] Address [address] [place] [address] Care Team Providers Name Role Phone Ian Kendrick MD Primary Care Provider [phone] Reason for Visit Reason Onset Date Comments Refill Request 05/02/2008 beclomethasone dipro prionate Encounter Details Date Type Department Care Team Description 05/02/2008 Refill [facility] Ian Kendrick Refill Request Clinic Chhaya Daniels MD (beclomethasone [address] [facility] diproprionate) [place], [place] [address] [facility] [address] [facility] [phone] [place] [address] (Wo rk) Social History Tobacco Use Types Packs/Day Years Used Date Smoking Tobacco: Former Cigarettes Comments: 2005 Alcohol Use Standard Drinks/Week Comments Yes 0 (1 standard drink = 0.6 oz pure alcoho l) 4 BEERS A WEEK Alcohol Habits Answer Date Recorded How often do you have a drink containing 4 or more times a w mi'kmaq 05/25/2021 alcohol? How many drinks containing alcohol [...] Notes Telephone Encounter - Ian Kendrick - 05/02/2008 4:57 PM CST Prescription refilled. Please inform patient that prescription is ready for pick-up at the office. ITY TECHNICIAN F[employer]ERGLASS Telephone Encounter - Yulisa Acosta - 05/02/2008 4:10 PM CST Pt qualifies for medication assistance program offered by [employer] [facility]. The [employer] represented part of this program carries Beconase (betamethasone diproprionate) and can provide pt a 90 day supply with only a $10.00 co-pay. Requires signed 90 day/ 1 year rx to send in along with paperwork as well as a 60 day rx for fill tolocal pharmacy under same program to get this started for patient. Recieved Rx refill request from patient, routed to PCP/ pool. Does not meet nursing protocol guidelines due to change from brand name QVAR to brand name Beconase. Medication Disp Refills Start End QVAR 80 MCG/ACT IN AERS 2 1 year 12/08/2007 Si time am 1 time pm Class: Fax BIN [phone] Bin Name [facility] Group [id number] ID# [id number] [facility] [phone] ( Nadiya Acosta RN/ Ian Kendrick MD) ITY TECHNICIAN FIBERGLASS documented in this encounter Plan of Treatment Upcoming Encounters Date Type Specialty Care Team Description 05/20/2022 Lab Lab documented as of this encounter Visit Diagnoses Diagnosis Chronic rhinitis - Primary documented in this encounter Care Teams Mint Wafer Depositor Relationship Specialty Start Date End Date Ian Kendrick MD PCP - General 11/19/07 02/21/14 [facility] [address] [place] [address] documented as of this encounter
--- OUTSIDE RECORDS SUMMARY | 2022-05-15 22:41 | XMS_ITS | Encounter Summary ---
:1955 Author Organization [facility] Address [address] [place] [address] Care Team Providers Name Role Phone Unavailable Primary Care Provider Unavailable Reason for Visit Reason Onset Date Comments Refill Request 10/27/2007 something for hemorr hoids Encounter Details Date Type Department Care Team Description 10/27/2007 Refill [facility] Ian Kendrick Refill Request Clinic Chhaya Daniels MD ([place] [address] [facility] hemorrhoids) [place], [place] [address] [facility] [address] [address] [phone] [place] [address] (Wo rk) Social History Tobacco [...] you attend anglican or Patient refused 2020 uatsdin services? Do [...] Notes Telephone Encounter - Ian Kendrick - 10/27/2007 1:29 PM CDT Spoke with patient - he found his hemorrhoid cream from his old [facility]. He will use that for the time being. Also encouraged Sitz baths. MARIS[facility] LEVY called him, but he misunderstood and so did not schedule an appointment. He will now call them to get an appointment. He will also get the contact info for Dr. Westbrook and let us know - we can then set up a referral to [facility] Telephone Encounter - Yulisa Acosta - 10/27/2007 10:09 AM CDT To my knowledge OTC meds are preferred, please advise. Nadiya Acosta RN Telephone Encounter - Nay Bella - 10/27/2007 10:03 AM CDT Patient stopped in today for lab appointment. He says he's got hemorrhoids since having the surgery.He'd like something faxed into [facility] down the road here in [place]. 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
--- OUTSIDE RECORDS SUMMARY | 2022-05-15 22:41 | XMS_ITS | Encounter Summary ---
:1955 Author Organization [facility] Address [address] [place] [address] Care Team Providers Name Role Phone Unavailable Primary Care Provider Unavailable Reason for Visit Reason Comments Anticoagulation first ACC visit Encounter Details Date Type Department Care Team Description 11/03/2007 Orders Only [facility] Emb olism and Thrombosis of Unspecified Site; [facility] Encounter for Long-Term (Cur rent) Use of Anticoagulants [address] [place] [address] Social History Tobacco Use Types Packs/Day Years Used Date Smoking Tobacco: Former Cigarettes Comments: 2004 Alcohol Use Standard Drinks/Week Comments Yes 0 (1 standard drink = 0.6 oz pure alcoho l) 4 BEERS A WEEK Alcohol Habits Answer Date Recorded How often do you have a drink containing 4 or more times a w napaimute 05/25/2021 alcohol? How many drinks containing alcohol [...] you attend jainism or Patient refused 2020 alevism services? Do [...] this encounter Progress Notes Yulisa Grajeda - 11/03/2007 10:28 AM CDT ANTICOAGULATION FOLLOW-UP CLINIC VISIT Patient Name: Virgil Christine Date: 11/03/2007 SUBJECTIVE: Bleeding Signs/Symptoms: None Thromboembolic Signs/Symptoms: None Medication Changes: No Dietary Changes: No Bacterial/Viral Infection: No Missed Coumadin Doses: None Other Concerns: No ASSESSMENT/PLAN: See: ANTICOAGULATION QIC flow sheet. [facility] LAB documented in this encounter Nursing Notes 11/03/2007 10:00 AM CDT >> YULISA GRAJEDA Tue November 03, 2007 10:29 AM Virgil Colvin Emmett presents for INR , reviewed activity and dietary habits. Pt to go ahead and eat greens as desired this week, we will adjust coumadin to meet pts peñastyle. Pt to reurn for INR in 7 days to adjust prn and update progress. Nadiya Grajeda RN documented in this encounter Plan of Treatment Upcoming Encounters Date Type Specialty Care Team Description 05/20/2022 Lab Lab documented as of this encounter Procedures Procedure Name Priority Date/Time Associated Diagnosis Comme nts HCL INR POCT Routine 11/13/2007 Encounter for Results for th is Long-Term (Current) procedur e are in Use of Anticoagulants the re sults section. CL AFF PROTHROMBIN Routine 11/03/2007 10:03 Embolism and Resul ts for this TIME AM CDT Thrombosis of procedure are in Unspecified Site the results section. documented in this encounter Results INR POINT OF CARE (11/13/2007) P athologist Signature INR Point of 1.7 [facility] Ian Kendrick MD LABORATORY Performing Organization Address City/[facility]/ZIP Code Phon e Number [facility] (ABNORMAL) PROTHROMBIN TIME (11/03/2007 10:03 AM CDT) P athologist Signature INR 1.80 (H) 0.86 - 1.14 [facility] Specimen Anatomical Collection Method Collection Time Receive d Time (Source) Location / / Volume Laterality 11/03/2007 10:03 11/03/2007 AM CDT 10:04 AM CDT Ian Kendrick MD LABORATORY Performing Organization Address [facility]/ZIP Code Phon e Number [facility] [address] [place] [address] [facility] documented in this encounter Visit Diagnoses Diagnosis Embolism and thrombosis of unspecified s ite terminal superintendent (current) use of anticoagulant s Long-term (current) use of anticoagulant s documented in this encounter
--- OUTSIDE RECORDS SUMMARY | 2022-05-15 22:41 | XMS_ITS | Encounter Summary ---
:1955 Author Organization [facility] Address [address] [place] [address] Care Team Providers Name Role Phone Ian Kendrick MD Primary Care Provider [phone] Reason for Visit Reason Comments Anticoagulation Encounter Details Date Type Department Care Team Description 03/03/2008 Allied Health/Nurse Health [facility] Anticoagulation Visit [address] [address] Social History Tobacco Use [...] you attend spiritism or Patient refused 2020 latter-day services? Do [...] this encounter Progress Notes Yulisa Acosta - 03/03/2008 11:45 AM CDT ANTICOAGULATION FOLLOW-UP CLINIC VISIT Patient Name: Virgil Christine Date: 03/03/2008 SUBJECTIVE: Bleeding Signs/Symptoms: None Thromboembolic Signs/Symptoms: None Medication Changes: No Dietary Changes: No Bacterial/Viral Infection: No Missed Coumadin Doses: 2 Other Concerns: No ASSESSMENT/PLAN: See: ANTICOAGULATION QIC flow sheet. LV NURSE documented in this encounter Plan of Treatment Upcoming Encounters Date Type Specialty Care Team Description 05/20/2022 Lab Lab documented as of this encounter Procedures Procedure Name Priority Date/Time Associated Diagnosis Comme nts HCL INR POCT Routine 03/03/2008 Encounter for Long-Term Resu lts for this (Current) Use of procedure a re in the Anticoagulants results secti on. 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
--- OUTSIDE RECORDS SUMMARY | 2022-05-15 22:41 | XMS_ITS | Encounter Summary ---
:1955 Author Organization [facility] Address [address] [place] [address] Care Team Providers Name Role Phone Unavailable Primary Care Provider Unavailable Reason for Visit Reason Onset Date Comments Refill Request 11/03/2007 coumadin Encounter Details Date Type Department Care Team Description 11/03/2007 Refill [facility] Ian Kendrick Refill Request Clinic [place] MD Jeremiah (coumadin) [address] [place], [place] [address] [facility] [address] [facility] [phone] [place] [address] (Wo rk) Social History Tobacco Use Types Packs/Day Years Used Date Smoking Tobacco: Former Cigarettes Comments: 2004 Alcohol Use Standard Drinks/Week Comments Yes 0 (1 standard drink = 0.6 oz pure alcoho l) 4 BEERS A WEEK Alcohol Habits Answer Date Recorded How often do you have a drink containing 4 or more times a w deering 05/25/2021 alcohol? How many drinks containing alcohol [...] you attend gnosticist or Patient refused 2020 denominational services? Do [...] Notes Telephone Encounter - Yulisa Acosta - 11/03/2007 3:35 PM CDT Rx filled per nursing protocol. Nadiya Acosta RN documented in this encounter Plan of Treatment Upcoming Encounters Date Type Specialty Care Team Description 05/20/2022 Lab Lab documented as of this encounter Visit Diagnoses Diagnosis VENOUS THROMBOSIS NOS - Primary Embolism and thrombosis of unspecified s ite documented in this encounter
--- OUTSIDE RECORDS SUMMARY | 2022-05-15 22:41 | XMS_ITS | Encounter Summary ---
:1955 Author Organization [facility] Address [address] [place] [address] Care Team Providers Name Role Phone Ian Kendrick MD Primary Care Provider [phone] Reason for Visit Reason Onset Date Comments Refill Request 12/08/2007 james nelson Encounter Details Date Type Department Care Team Description 12/08/2007 Refill [facility] Ian Kendrick Refill Request (qvar [facility] MD leslie Daniels) [address] [place], [place] [address] [facility] [address] [facility] [phone] [place] [address] (Wo rk) Social History Tobacco [...] you attend jewish or Patient refused 2020 holiness services? Do [...] Notes Telephone Encounter - Yulisa Acosta - 12/09/2007 9:30 AM CDT Spoke with patient, requests additional meds , see med sheet . Will have ins through end of month. Verbal okay from Dr Kendrick. Nadiya Acosta RN Telephone Encounter - Ian Kendrick - 12/08/2007 5:02 PM CDT We unfortunately do not have samples for either of those medications, or similar. We do have Advair if he would like. Please let him know if he wants us to send the prescriptions in. Telephone Encounter - Yulisa Acosta - 12/08/2007 4:24 PM CDT Needs to be approved by PCP, please see note below. Nadiya Acosta RN Telephone Encounter - Heriberto Bella - 12/08/2007 2:05 PM CDT Staff Message copied by HERIBERTO PANTOJA on FriDec 08, 2007 2:05 PM ------ Message from: JAKOB WORRELL Created: FriDec 08, 2007 1:01 PM Regarding: Phone Message/Mireille Contact: Virgil is temporily without insurance. He was if could get sample's for his inhaler Qvar 7 Atrovent. Virgil can be reached at [phone]. DL 6-17@1:00pm documented in this encounter Plan of Treatment Upcoming Encounters Date Type Specialty Care Team Description 05/20/2022 Lab Lab documented as of this encounter Visit Diagnoses Diagnosis Other dyspnea and respiratory abnormalit y - Primary ULCERATIVE COLITIS NOS Ulcerative colitis, unspecified Anxiety Anxiety state, unspecified documented in this encounter Care Teams Missile Mechanic Relationship Specialty Start Date End Date Ian Kendrick MD PCP - General 11/19/07 02/21/14 [facility] [address] [place] [address] documented as of this encounter
--- OUTSIDE RECORDS SUMMARY | 2022-05-15 22:42 | XMS_ITS | Encounter Summary ---
:1955 Author Organization [facility] Address [address] [place] [address] Care Team Providers Name Role Phone Unavailable Primary Care Provider Unavailable Encounter Details Date Type Department Care Team Description 12/22/2006 Emergency room Jose Miller Ma, MD EMERGENCY PHYSIC [facility] [address] [facility] [address] [place], [place] [address] (Wo rk) Social History Tobacco Use Types Packs/Day Years Used Date Smoking Tobacco: Never Assessed Alcohol Habits Answer Date Recorded How often do you have a drink containing 4 or more times a w [place] 05/25/2021 alcohol? How many drinks containing alcohol [...] you attend anglican or Patient refused 2020 alevism services? Do [...] documented as of this encounter Progress Notes Jose Miller - 01/07/2007 10:19 PM CDT FINAL CHIEF COMPLAINT: Hemorrhoids, painful swollen hemorrhoids. HISTORY OF PRESENT ILLNESS: This is a 51-year-old male who occasionally has had hemorrhoids but nothing like this. He is unfortunately has been diagnosed with ulcerative colitis back in August of this year and is currently under therapy for that. He has continued to have watery and bloody stools but then he noted that during the night last night that he develops painful and swollen hemorrhoid and it was not getting better just seemed to get worse. It was very painful so he came in to be seen. 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 PAST MEDICAL HISTORY: Ulcerative colitis. MEDICATIONS: Prednisone 10 mg, Nexium, paroxetine, he gets Remicade infusions and he is on Colazal,Singulair, Lasix, Atrovent, beclomethasone and K-Dur. ALLERGIES: None. REVIEW OF SYSTEMS: All systems negative except as stated above. SOCIAL HISTORY: He is from [place] as stated above. PHYSICAL EXAMINATION: VITAL SIGNS: Temperature 98.1, pulse 88, respirations 16, blood pressure 122/90 and O2 saturation 97%, GENERAL: The patient is alert, cooperative and in no respiratory distress. HEENT: Eyes, pupils equal, round and reactive to light. Conjunctivae are clear. Lids are not swollen. Oropharynx: Moist mucous membranes without erythema or lesion. NECK: Supple and nontender. BACK: Nontender. CHEST: Symmetric chest rise to inspiration. LUNGS: Clear to auscultation. CARDIOVASCULAR: Regular rate and rhythm without murmur. ABDOMEN: Soft, nondistended and nontender. EXTREMITIES: Normal. SKIN: Well perfused. /RECTAL: In his anal area he does have a large thrombosed hemorrhoid. It goes from about 12-1 o'clock position down to the 6 o'clock position and is very tender and swollen and developing all in that right side. EMERGENCY DEPARTMENT COURSE: The patient is a bit complicated in that he says that he has this large thrombosed hemorrhoid but he also has ulcers, colitis and is on multiple medications for that and he is not getting better and is contributing to this problem. I talked to Dr. Bauer from colorectal surgery and he said that they could take him over in clinic to review the case in and do any surgical procedure there was required. I felt that was a reasonable thing because of the size of it as well as ahistory of ulcerative colitis and so I went ahead and arranged for that. CLINICAL IMPRESSION: Large thrombosed hemorrhoid. CLINICAL PLAN: To have him go over to the colorectal clinic for care. Electronically signed on 01/07/2007 22:19 by JOSE MILLER MD MT: [id number] Name: ANITA CHRISTINE Account: [id number] : 1955 Visit Date: 12/22/2006 Document: [id number] documented in this encounter Plan of Treatment Upcoming Encounters Date Type Specialty Care Team Description 05/20/2022 Lab Lab documented as of this encounter Visit Diagnoses Not on filedocumented in this encounter
--- OUTSIDE RECORDS SUMMARY | 2022-05-15 22:42 | XMS_ITS | Encounter Summary ---
:1955 Author Organization [facility] Address [address] [place] [address] Care Team Providers Name Role Phone Ian Knedrick MD Primary Care Provider [phone] Encounter Details Date Type Department Care Team Description 11/28/2006 Orders Only [facility] Ian Kendrick DIAGNO SIS NOT YET Clinic Indianolasandee Daniels MD DEFINED (Primary Dx) [address] [facility] [id number] [address] [facility] [phone] [place] [address] (Wo rk) Social History Tobacco [...] you attend mandaen or Patient refused 2020 mosque services? Do [...] Priority Date/Time Associated Diagnosis Comme nts SCANNED MIS. LAB RESULTS Routine 11/28/2006 DIAGNOSIS NOT Y ET DEFINED documented in this encounter Results SCANNED MIS. LAB RESULTS (11/28/2006) Specimen (Source) Anatomical Location Collection Method / Collectio n Time Received Time / Laterality Volume 11/28/2006 Narrative This result has an attachment that is no t available. Ian Kendrick MD LABORATORY documented in this encounter Visit Diagnoses Diagnosis DIAGNOSIS NOT YET DEFINED - Primary documented in this encounter Care Teams Nursery Hand Relationship Specialty Start Date End Date Ian Kendrick MD PCP - General 11/19/07 02/21/14 [place] [id number] [place] [address] documented as of this encounter
--- OUTSIDE RECORDS SUMMARY | 2022-05-15 22:42 | XMS_ITS | Encounter Summary ---
:1955 Author Organization [facility] Address [address] [place] [address] Care Team Providers Name Role Phone Ian Kendrick MD Primary Care Provider [phone] Encounter Details Date Type Department Care Team Description 09/07/2007 Orders Only [facility] Ian Kendrick DIAGNO SIS NOT YET Clinic Hudsonsandee Daniels MD DEFINED (Primary Dx) [address] [facility] [id number] [address] [facility] [phone] [place] [address] (Wo rk) Social History Tobacco Use Types Packs/Day Years Used Date Smoking Tobacco: Never Assessed Alcohol Habits Answer Date Recorded How often do you have a drink containing 4 or more times a w [place] 05/25/2021 alcohol? How many drinks containing alcohol [...] you attend buddhism or Patient refused 2020 roman catholic services? [...] Associated Diagnosis Comme nts HC COLON BARIUM ENEMA WWO KUB Routine 09/07/2007 DIAGNOSIS N OT YET DEFINED HC COLON BARIUM ENEMA WWO KUB Routine 07/02/2007 DIAGNOSIS N OT YET DEFINED HC COLON BARIUM ENEMA WWO KUB Routine 05/13/2007 DIAGNOSIS N OT YET DEFINED documented in this encounter Results X-RAY COLON CONTRAST (09/07/2007) Anatomical Region Laterality Modality Other Specimen (Source) Anatomical Location Collection Method / Collectio n Time Received Time / Laterality Volume 09/07/2007 Narrative This result has an attachment that is no t available. Ian Kendrick MD SPECIAL IMAGING STUDIES X-RAY COLON CONTRAST (07/02/2007) Anatomical Region Laterality Modality Other Specimen (Source) Anatomical Location Collection Method / Collectio n Time Received Time / Laterality Volume 07/02/2007 Narrative This result has an attachment that is no t available. Ian Kendrick MD SPECIAL IMAGING STUDIES X-RAY COLON CONTRAST (05/13/2007) Anatomical Region Laterality Modality Other Specimen (Source) Anatomical Location Collection Method / Collectio n Time Received Time / Laterality Volume 05/13/2007 Narrative This result has an attachment that is no t available. Ian Kendrick MD SPECIAL IMAGING STUDIES documented in this encounter Visit Diagnoses Diagnosis DIAGNOSIS NOT YET DEFINED - Primary documented in this encounter Care Teams Home Care Chaplain Relationship Specialty Start Date End Date Ian Kendrick MD PCP - General 11/19/07 02/21/14 [place] [address] [place] [address] documented as of this encounter
--- OUTSIDE RECORDS SUMMARY | 2022-05-15 22:42 | XMS_ITS | Encounter Summary ---
:1955 Author Organization [facility] Address [address] [place] [address] Care Team Providers Name Role Phone Unavailable Primary Care Provider Unavailable Reason for Referral Office Workup No CT/MRI - Closed Specialty Diagnoses / Procedures Referred By Contact Refer red To Contact Diagnoses Ulcerative colitis, unspecified Ian Kendrick MD [facility] [address] [facility] [address] [facility] [address] [place], [place] [address] [place] [address] Fax: Referral ID Status Reason Start Date Expiration Date Visits Requ ested Visits Authorized [id number] Closed 10/20/2007 06/22/2011 1 1 Reason for Visit Reason Comments Blood Draw new pt needs an INR. DVTs in right leg. RECHECK SCARS on stomach after surge ry. Rectal Problem pt complains of hemerrhoids Encounter Details Date Type Department Care Team Description [facility]; Clinic Chhaya Daniels MD RESPIRATORY ABNORM NEC; [address] [facility] VENOUS THROMBOSIS NOS [place], [place] CLINIC [address] [address] [facility] [phone] [place] [address] (Wo rk) Social History Tobacco Use Types Packs/Day Years Used Date Smoking Tobacco: Former Cigarettes Comments: 2004 Alcohol Use Standard Drinks/Week Comments Yes 0 (1 standard drink = 0.6 oz pure alcoho l) 4 BEERS A WEEK Alcohol Habits Answer Date Recorded How often do you have a drink containing 4 or more times a w [place] 05/25/2021 alcohol? How many drinks containing alcohol [...] you attend methodist or Patient refused 2020 gnosticist services? Do [...] Sign Reading Time Taken Comments Blood Pressure 118/76 10/20/2007 3:00 PM CDT Pulse 79 10/20/2007 3:00 PM CDT Temperature 36.6 ??C (97.8 ??F) 10/20/2007 3:00 PM CDT Respiratory Rate - - Oxygen Saturation 100% 10/20/2007 3:00 PM CDT Inhaled Oxygen Concentration - - Weight 100.5 kg (221 lb 9 oz) 10/20/2007 3:00 PM CDT Height 182.9 cm (6') 10/20/2007 3:00 PM CDT Body Mass Index 30.05 10/20/2007 3:00 PM CDT documented in this encounter Progress Notes Ian Kendrick - 10/20/2007 3:43 PM CDT Virgil Christine is a 51 year old male who presents for evaluation of: 1. establish care - arrived in [place] on September 30, has been getting care in [facility]. 2. ulcerative colitis - Recent colostomy takedown in 07/31. He is without ulcerative colitis medications with the exception of loperamide. He is still having trouble making formed stools unless he takesloperamide. because of the need to push to evacuate, however, he has pramod to have a significant problem with hemorrhoids. Has seen Dr. Westbrook at a colorectal surgery while in [place] in the past. He believes he worked out of [facility]. He is also on famotidine. He is unsure why but believes it was prescribed by his Gastroenterology doctor. 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 He hasbeen placed on warfarin. Goal of 2.0 to 3.0. He still has residual leg swelling in the right lower extremity, but this is improving. It is unclear if he developed DVTs following the original episode, or if this is still the original problem. 4. respiratory abnormality - he is on several respiratory medications, but he is unsure why. He thinks that he has either been diagnosed with asthma or COPD. He is on QVAR, atrovent, and Singulair. He does not feel symptomatic from his respiratory abnormality at this time. 5. anxiety - on Paxil 10mg every other day. Started 18 months ago. He feels well controlled on this,and does not want to change his medication regimen at this time. Problems list, allergies, social and family history, and past medical history, are all reviewed and updated in [facility]. Current Outpatient Rx Name Route Sig Dispense Refill ??? LOPERAMIDE HCL 2 MG OR CAPS Oral 2-4 caps po 4 times daily 0 0 ??? SINGULAIR 10 MG OR TABS Oral ONE TABLET DAILY 0 1 YEAR ??? PAROXETINE HCL 10 MG OR TABS Oral 1 TABLET DAILY 0 0 ??? WARFARIN SODIUM 10 MG OR TABS Oral 1 TABLET [...] TABLET TWICE DAILY 60 0 OBJECTIVE: BP 118/76 Pulse 79 Temp (Src) 97.8 (Oral) Ht 6' 0 (1.83m) Wt 221 lbs 9.0 oz (100.5kg) SaO2 100% GENERAL APPEARANCE: healthy, alert and no distress [...] without tenderness, guarding, mass, rebound or organomegaly. multiple healing surgical scars. Bowel sounds are normal. EXT: nonpitting edema in the right lower extremity. left lower extremity is normal. INR: 1.6 Assessment/Plan: 556.9 ULCERATIVE COLITIS NOS Note: Plan: FAMOTIDINE 20 MG OR TABS, CONSULT [facility] He will need to establish care with Gastroenterology for his ongiong ulcerative colitis symptoms. Iao recommended a referral to [facility] for management of his hemorrhoids. He will try and find the contact information for Dr. Westbrook in the meantime. [phone] RESPIRATORY ABNORM NEC Note: Plan: ATROVENT HFA 17 MCG/ACT IN AERS release of information has been sent for his old records. As he is asymptomatic on his current medication regimen, I advised that he continue this for the present time. He was interested in going off of the Singulair as a friend told him that it was associated with bad side effects. He notes no side effects but would still like to go off. 453.9 VENOUS THROMBOSIS NOS Note: Plan: PROTHROMBIN TIME 8mg x 2 days, then go back to 5 mg daily. recheck 1 week. Spent greater than 50% of 30 minutes in jkmc-ik-klah time counseling patient regarding ulcerative colitis and DVT management. documented in this encounter Nursing Notes 10/20/2007 3:00 PM CDT >> MARCO MARTINEZ 10/20/2007 3:21 pm Virgil Christine presents for ABOVE. Initial BP 118/76 Pulse 79 Temp (Src) 97.8 (Oral) Ht 6' 0 (1.83m) Wt 221 lbs 9.0 oz (100.5kg) SaO2 100% Body mass index is 30.04 kg/(m^2).. BP completed using cuff size: lorne Lermay Pasha FIELD HAULER documented in this encounter Plan of Treatment Upcoming Encounters Date Type Specialty Care Team Description 05/20/2022 Lab Lab documented as of this encounter Procedures Procedure Name Priority Date/Time Associated Diagnosis Comme nts CL AFF PROTHROMBIN Routine 10/20/2007 3:50 PM Venous Thrombosi s Results for this TIME CDT Nos procedure are i n the results section. ZZ CONSULT Routine 10/24/2006 Unspecified [facility] Ulcerative Colitis documented in this encounter Results (ABNORMAL) PROTHROMBIN TIME (10/20/2007 3:50 PM CDT) P athologist Signature INR 1.40 (H) 0.86 - 1.14 [facility] Specimen Anatomical Collection Method Collection Time Receive d Time (Source) Location / / Volume Laterality 10/20/2007 3:50 PM 8 3:51 CDT PM CDT Ian Kendrick MD LABORATORY Performing Organization Address City/State/ZIP Code Phon e Number [facility] [address] [place] [address] [facility] CONSULT [facility] (10/24/2006) Narrative This result has an attachment that is no t available. Ian Kendrick MD REFERRAL documented in this encounter Visit Diagnoses Diagnosis Ulcerative colitis, unspecified Other dyspnea and respiratory abnormalit y Embolism and thrombosis of unspecified s ite documented in this encounter
--- OUTSIDE RECORDS SUMMARY | 2022-05-15 22:42 | XMS_ITS | Encounter Summary ---
:1955 Author Organization [facility] Address [address] [place] [address] Care Team Providers Name Role Phone Ian Kendrick MD Primary Care Provider [phone] Froylan Louise MD Primary Care Provider Unavailable Froylan Louise MD Unavailable Unavailable Froylan Louise MD Unavailable Unavailable Esthela Corea RN Unavailable Unavailable So Dodd MD Primary Care Provider Froylan Louise MD Primary Care Provider Unavailable So Dodd MD Unavailable So Dodd MD Primary Care Provider Encounter Details Date Type Department Care Team Description 09/19/2006 [facility] [place] [address] [place] [address] [address] [facility] [phone] [facility] [address] (Wo rk) Social History Tobacco Use [...] you attend rastafarian or Patient refused 2020 baptist services? Do you belong to any clubs or Yes 05/25/2021 organizations such as rastafarian groups, unions, fraROX Medical or athletic groups, or school groups? [...] documented as of this encounter Care Teams Clinic Physician Relationship Specialty Start Date End Date Ian Kendrick PCP - General 11/19/07 02/21/14 MD Jeremiah [facility] [address] [place] [address] Froylan Louise MD PCP - General Family Practice 02/22/14 Froylan Louise MD PCP - Assigned PCP 03/13/14 08/25/18 So Dodd MD PCP - General Family Medicine 01/10/22 01/17/22 [address] [place] [address] Froylan Louise MD PCP - General Family Medicine 01/18/22 So Dodd MD PCP - General Family Medicine 02/21/22 [address] [place], [place] [id number] Froylan Louise MD Assigned PCP 03/13/14 2 Esthela Corea RN Personal Advocate & Family Medicine 10/16/20 Liaison (PAL) So Dodd MD Assigned PCP 01/05/22 [address] [place] [address] documented as of this encounter
--- OUTSIDE RECORDS SUMMARY | 2022-05-15 22:42 | XMS_ITS | Encounter Summary ---
:1955 Author Organization [facility] Address [address] [place] [address] Care Team Providers Name Role Phone Ian Kendrick MD Primary Care Provider [phone] Encounter Details Date Type Department Care Team Description 11/28/[address] [facility] Ian Kendrick DIAGNO SIS NOT YET Clinic Carat[place]andee Daniels MD DEFINED (Primary Dx) [address] [facility] [address] [address] [facility] [phone] [place] [address] (Wo rk) Social History Tobacco Use Types Packs/Day Years Used Date Smoking Tobacco: Never Assessed Alcohol Habits Answer Date Recorded How often do you have a drink containing 4 or more times a w [place] 05/25/2021 alcohol? How many drinks containing alcohol [...] you attend muslim or Patient refused 2020 mandaen services? Do [...] Diagnosis Comme nts SCANNED MISC. LAB Routine 11/28/2006 DIAGNOSIS NOT YET RESULTS DEFINED HCL POTASSIUM Routine 11/28/2006 DIAGNOSIS NOT YET Results f or this DEFINED procedure are i n the results section . HCL GLUCOSE Routine 11/28/2006 DIAGNOSIS NOT YET Results fo r this DEFINED procedure are i n the results section . HCL ALT Routine 11/28/2006 DIAGNOSIS NOT YET Results fo r this DEFINED procedure are i n the results section . HCL AST Routine 11/28/2006 DIAGNOSIS NOT YET Results fo r this DEFINED procedure are i n the results section . HCL SODIUM Routine 11/28/2006 DIAGNOSIS NOT YET Results fo r this DEFINED procedure are i n the results section . HCL CREATININE Routine 11/28/2006 DIAGNOSIS NOT YET Results for this DEFINED procedure are i n the results section . documented in this encounter Results POTASSIUM (11/28/2006) P athologist Signature Potassium 4.7 mmol/L Specimen (Source) Anatomical Location Collection Method / Collectio n Time Received Time / Laterality Volume 11/28/2006 Ian Kendrick MD LABORATORY SODIUM (11/28/2006) P athologist Signature Sodium 140 mmol/L Specimen (Source) Anatomical Location Collection Method / Collectio n Time Received Time / Laterality Volume 11/28/2006 Ian Kendrick MD LABORATORY ALANINE AMINO (ALT) (SGPT) (11/28/2006) P athologist Signature ALT 21 U/L Specimen (Source) Anatomical Location Collection Method / Collectio n Time Received Time / Laterality Volume 11/28/2006 Ian Kendrick MD LABORATORY AST (11/28/2006) P athologist Signature AST 12 U/L Specimen (Source) Anatomical Location Collection Method / Collectio n Time Received Time / Laterality Volume 11/28/2006 Ian Kendrick MD LABORATORY GLUCOSE (11/28/2006) P athologist Signature Glucose 102 mg/dL Specimen (Source) Anatomical Location Collection Method / Collectio n Time Received Time / Laterality Volume 11/28/2006 Ian Kendrick MD LABORATORY CREATININE (11/28/2006) P athologist Signature Creatinine 0.9 mg/dL Specimen (Source) Anatomical Location Collection Method / Collectio n Time Received Time / Laterality Volume 11/28/2006 Ian Kendrick MD LABORATORY SCANNED [facility]. LAB RESULTS (11/28/2006) Specimen (Source) Anatomical Location Collection Method / Collectio n Time Received Time / Laterality Volume 11/28/2006 Narrative This result has an attachment that is no t available. Ian Kendrick MD LABORATORY documented in this encounter Visit Diagnoses Diagnosis DIAGNOSIS NOT YET DEFINED - Primary documented in this encounter Care Teams Technical Product Manager Relationship Specialty Start Date End Date Ian Kendrick MD PCP - General 11/19/07 02/21/14 [facility] [address] [place] [address] documented as of this encounter
--- OUTSIDE RECORDS SUMMARY | 2022-05-15 22:42 | XMS_ITS | Encounter Summary ---
:1955 Author Organization [facility] Address [address] [place] [address] Care Team Providers Name Role Phone Ian Kendrick MD Primary Care Provider [phone] Encounter Details Date Type Department Care Team Description 04/15/2007 Orders Only [facility] Ian Kendrick DIAGNO SIS NOT YET Clinic [place] Daniels MD DEFINED (Primary Dx) [address] [facility] [phone] 0590 [facility] [phone] [place] [address] (Wo rk) Social History Tobacco [...] you attend protestant or Patient refused 2020 rastafarian services? Do [...] Priority Date/Time Associated Diagnosis Comme nts HCL LDL-CHOLESTEROL Routine 04/15/2007 DIAGNOSIS NOT YET Res ults for this DEFINED procedure are i n the results section . SCANNED MISC. LAB Routine 04/15/2007 DIAGNOSIS NOT YET RESULTS DEFINED HCL CHOL/HDL RATIO Routine 04/15/2007 DIAGNOSIS NOT YET Resu lts for this DEFINED procedure are i n the results section . HCL TSH Routine 04/15/2007 DIAGNOSIS NOT YET Results fo r this DEFINED procedure are i n the results section . HCL T4 FREE Routine 04/15/2007 DIAGNOSIS NOT YET Results fo r this DEFINED procedure are i n the results section . HCL TRIGLYCERIDES Routine 04/15/2007 DIAGNOSIS NOT YET Resul ts for this DEFINED procedure are i n the results section . HCL ALT Routine 04/15/2007 DIAGNOSIS NOT YET Results fo r this DEFINED procedure are i n the results section . HCL AST Routine 04/15/2007 DIAGNOSIS NOT YET Results fo r this DEFINED procedure are i n the results section . HCL HDL CHOLESTEROL Routine 04/15/2007 DIAGNOSIS NOT YET Res ults for this DEFINED procedure are i n the results section . HCL CHOLESTEROL Routine 04/15/2007 DIAGNOSIS NOT YET Results for this DEFINED procedure are i n the results section . documented in this encounter Results TSH- (04/15/2007) athologist Signature TSH 2.14 mcU/mL Specimen (Source) Anatomical Location Collection Method / Collectio n Time Received Time / Laterality Volume 04/15/2007 Ian Kendrick MD LABORATORY T4, FREE, SERUM (04/15/2007) athologist Signature T4 Free 1.06 ng/dL Specimen (Source) Anatomical Location Collection Method / Collectio n Time Received Time / Laterality Volume 04/15/2007 Ian Kendrick MD LABORATORY LDL-CHOLESTEROL (04/15/2007) athologist Signature LDL Cholesterol 67 mg/dL Calculated Specimen (Source) Anatomical Location Collection Method / Collectio n Time Received Time / Laterality Volume 04/15/2007 Ian Kendrick MD LABORATORY CHOL/HDL RATIO (04/15/2007) athologist Signature Cholesterol/HDL 3.4 Ratio Specimen (Source) Anatomical Location Collection Method / Collectio n Time Received Time / Laterality Volume 04/15/2007 Ian Kendrick MD LABORATORY TRIGLYCERIDES (04/15/2007) P athologist Signature Triglycerides 275 mg/dL Specimen (Source) Anatomical Location Collection Method / Collectio n Time Received Time / Laterality Volume 04/15/2007 Ian Kendrick MD LABORATORY CHOLESTEROL (04/15/2007) P athologist Signature Cholesterol 172 115 - 199 mg/dL Specimen (Source) Anatomical Location Collection Method / Collectio n Time Received Time / Laterality Volume 04/15/2007 Ian Kendrick MD LABORATORY HDL CHOLESTEROL (04/15/2007) P athologist Signature HDL Cholesterol 50 mg/dL Specimen (Source) Anatomical Location Collection Method / Collectio n Time Received Time / Laterality Volume 04/15/2007 Ian Kendrick MD LABORATORY ALANINE AMINO (ALT) (SGPT) (04/15/2007) P athologist Signature ALT 18 U/L Specimen (Source) Anatomical Location Collection Method / Collectio n Time Received Time / Laterality Volume 04/15/2007 Ian Kendrick MD LABORATORY AST (04/15/2007) P athologist Signature AST 10 U/L Specimen (Source) Anatomical Location Collection Method / Collectio n Time Received Time / Laterality Volume 04/15/2007 Ian Kendrick MD LABORATORY SCANNED MISC. LAB RESULTS (04/15/2007) Specimen (Source) Anatomical Location Collection Method / Collectio n Time Received Time / Laterality Volume 04/15/2007 Narrative This result has an attachment that is no t available. Ian Kendrick MD LABORATORY documented in this encounter Visit Diagnoses Diagnosis DIAGNOSIS NOT YET DEFINED - Primary documented in this encounter Care Teams Certified Massage Therapist Relationship Specialty Start Date End Date Ian Kendrick MD PCP - General 11/19/07 02/21/[address] [address] documented as of this encounter
--- OUTSIDE RECORDS SUMMARY | 2022-05-15 22:42 | XMS_ITS | Encounter Summary ---
:1955 Author Organization [facility] Address [address] [place] [address] Care Team Providers Name Role Phone Ian Kendrick MD Primary Care Provider [phone] Encounter Details Date Type Department Care Team Description 08/07/2007 Orders Only [facility] Ian Kendrick DIAGNO SIS NOT YET Clinic [place] Daniels MD DEFINED (Primary Dx) [address] [facility] [phone] [address] [facility] [phone] [place] [address] (Wo rk) Social History Tobacco Use Types Packs/Day Years Used Date Smoking Tobacco: Never Assessed Alcohol Habits Answer Date Recorded How often do you have a drink containing 4 or more times a w wiyot 05/25/2021 alcohol? How many drinks containing alcohol [...] you attend mandaen or Patient refused 2020 holiness services? Do [...] Procedure Name Priority Date/Time Associated Diagnosis Comme [facility] VEN[facility] THROMBOSIS IMAGING Routine 08/07/2007 DIAGNOSIS N OT YET DEFINED documented in this encounter Results VENOUS THROMBOSIS IMAGING (08/07/2007) Anatomical Region Laterality Modality Other Specimen (Source) Anatomical Location Collection Method / Collectio n Time Received Time / Laterality Volume 08/07/2007 Narrative This result has an attachment that is no t available. Ian Kendrick MD SPECIAL IMAGING STUDIES documented in this encounter Visit Diagnoses Diagnosis DIAGNOSIS NOT YET DEFINED - Primary documented in this encounter Care Teams Pole Incisor Operator Relationship Specialty Start Date End Date Ian Kendrick MD PCP - General 11/19/07 02/21/14 [place] [id number] [place] [address] documented as of this encounter
--- OUTSIDE RECORDS SUMMARY | 2022-05-15 22:42 | XMS_ITS | Encounter Summary ---
:1955 Author Organization [facility] Address [address] [place] [address] Care Team Providers Name Role Phone Ian Kendrick MD Primary Care Provider [phone] Encounter Details Date Type Department Care Team Description 11/28/2006 Orders Only [facility] Ian Kendrick DIAGNO SIS NOT YET Clinic [place] MD DEFINED (Primary Dx) [address] [facility] [address] 4[address] [facility] [phone] [place] [address] (Wo rk) Social History Tobacco [...] you attend jew or Patient refused 2020 latter-day services? Do [...] Priority Date/Time Associated Diagnosis Comme nts HC PULSE OXIMETRY, SINGLE Routine 12/02/2006 DIAGNOSIS NOT Y ET DEFINED DETERMINATION HC CHEST TWO VIEWS, FRONT/LAT Routine 11/28/2006 DIAGNOSIS N OT YET DEFINED CT SCAN ABDOMEN/PELVIS Routine 11/09/2006 DIAGNOSIS NOT YET DEFINED ZZC BREATHING CAPACITY (SEND Routine 08/02/2005 DIAGNOSIS NO T YET DEFINED OUT) HC CT MAXILLOFACIAL W/O Routine 07/25/2005 DIAGNOSIS NOT YET DEFINED CONTRAST HC SPIROMETRY, BREATH CAPACITY Routine 07/04/2005 DIAGNOSIS NOT YET DEFINED HC CHEST TWO VIEWS, FRONT/LAT Routine 06/06/2005 DIAGNOSIS N OT YET DEFINED documented in this encounter Results NONINVASV OXYGEN SATUR;SINGLE (12/02/2006) Specimen (Source) Anatomical Location Collection Method / Collectio n Time Received Time / Laterality Volume 12/02/2006 Narrative This result has an attachment that is no t available. Ian Kendrick MD PROCEDURES CHEST X-RAY 2 VW (11/28/2006) Anatomical Region Laterality Modality Other Specimen (Source) Anatomical Location Collection Method / Collectio n Time Received Time / Laterality Volume 11/28/2006 Narrative This result has an attachment that is no t available. Ian Kendrick MD GENERAL IMAGING CT SCAN ABDOMEN/PELVIS (11/09/2006) Anatomical Region Laterality Modality Other Specimen (Source) Anatomical Location Collection Method / Collectio n Time Received Time / Laterality Volume 11/09/2006 Narrative This result has an attachment that is no t available. Ian Kendrick MD SPECIAL IMAGING STUDIES BREATHING CAPACITY (SEND OUT) (08/02/2005) Specimen (Source) Anatomical Location Collection Method / Collectio n Time Received Time / Laterality Volume 08/02/2005 Narrative This result has an attachment that is no t available. Ian Kendrick MD PROCEDURES CT SCAN FACE, JAW (07/25/2005) Anatomical Region Laterality Modality Other Specimen (Source) Anatomical Location Collection Method / Collectio n Time Received Time / Laterality Volume 07/25/2005 Narrative This result has an attachment that is no t available. Ian Kendrick MD SPECIAL IMAGING STUDIES BREATHING CAPACITY TEST (07/04/2005) Specimen (Source) Anatomical Location Collection Method / Collectio n Time Received Time / Laterality Volume 07/04/2005 Narrative This result has an attachment that is no t available. Ian Kendrick MD PROCEDURES CHEST X-RAY 2 VW (06/06/2005) Anatomical Region Laterality Modality Other Specimen (Source) Anatomical Location Collection Method / Collectio n Time Received Time / Laterality Volume 06/06/2005 Narrative This result has an attachment that is no t available. Ian Kendrick MD GENERAL IMAGING documented in this encounter Visit Diagnoses Diagnosis DIAGNOSIS NOT YET DEFINED - Primary documented in this encounter Care Teams Baking Powder Mixer Relationship Specialty Start Date End Date Ian Kendrick MD PCP - General 11/19/07 02/21/14 [place] [id number] [place] [address] documented as of this encounter
--- OUTSIDE RECORDS SUMMARY | 2022-05-15 22:42 | XMS_ITS | Encounter Summary ---
:1955 Author Organization [facility] Address [address] [place] [address] Care Team Providers Name Role Phone Ian Kendrick MD Primary Care Provider [phone] Froylan Louise MD Primary Care Provider Unavailable Froylan Louise MD Unavailable Unavailable Froylan Louise MD Unavailable Unavailable Esthela Corea RN Unavailable Unavailable So Dodd MD Primary Care Provider Froylan Louise MD Primary Care Provider Unavailable So Dodd MD Unavailable So Dodd MD Primary Care Provider Encounter Details Date Type Department Care Team Description 03/27/2007 [facility] [place] [address] [place] [address] [facility] [phone] [facility] N [id number] (Wo rk) Social History Tobacco Use Types [...] documented as of this encounter Care Teams Audio Director Relationship Specialty Start Date End Date Ian Kendrick PCP - General 11/19/07 02/21/14 MD Jeremiah [facility] [address] [place] [address] Froylan Louise MD PCP - General Family Practice 02/22/14 Froylan Louise MD PCP - Assigned PCP 03/13/14 08/25/18 So Dodd MD PCP - General Family Medicine 01/10/22 01/17/22 [address] [place] [address] Froylan Louise MD PCP - General Family Medicine 01/18/22 So Dodd MD PCP - General Family Medicine 02/21/22 [address] [place] [address] Froylan Louise MD Assigned PCP 03/13/14 2 Esthela Corea RN Personal Advocate & Family Medicine 10/16/20 Liaison (PAL) So Dodd MD Assigned PCP 01/05/22 [address] [place] [address] documented as of this encounter
--- OUTSIDE RECORDS SUMMARY | 2022-05-15 22:42 | XMS_ITS | Encounter Summary ---
:1955 Author Organization [facility] Address [address] [place] [address] Care Team Providers Name Role Phone Ian Kendrick MD Primary Care Provider [phone] Encounter Details Date Type Department Care Team Description 09/14/2007 Orders Only [facility] Ian Kendrick DIAGNO SIS NOT YET Clinic [place] MD DEFINED (Primary Dx) [address] [facility] [phone] 5651 [facility] [phone] [place] [address] (Wo rk) Social History Tobacco [...] you attend restoration or Patient refused 2020 restorationist services? Do [...] Diagnosis Comme nts SCANNED MISC. LAB Routine 09/14/2007 DIAGNOSIS NOT YET RESULTS DEFINED SCANNED MISC. LAB Routine 09/04/2007 DIAGNOSIS NOT YET RESULTS DEFINED HCL POTASSIUM Routine 09/04/2007 DIAGNOSIS NOT YET Results f or this DEFINED procedure are i n the results section . HCL GLUCOSE Routine 09/04/2007 DIAGNOSIS NOT YET Results fo r this DEFINED procedure are i n the results section . HCL ALT Routine 09/04/2007 DIAGNOSIS NOT YET Results fo r this DEFINED procedure are i n the results section . HCL AST Routine 09/04/2007 DIAGNOSIS NOT YET Results fo r this DEFINED procedure are i n the results section . HCL SODIUM Routine 09/04/2007 DIAGNOSIS NOT YET Results fo r this DEFINED procedure are i n the results section . HCL CREATININE Routine 09/04/2007 DIAGNOSIS NOT YET Results for this DEFINED procedure are i n the results section . documented in this encounter Results SCANNED MISC. LAB RESULTS (09/14/2007) Specimen (Source) Anatomical Location Collection Method / Collectio n Time Received Time / Laterality Volume 09/14/2007 Narrative This result has an attachment that is no t available. Ian Kendrick MD LABORATORY POTASSIUM (09/04/2007) P athologist Signature Potassium 3.9 mmol/L Specimen (Source) Anatomical Location Collection Method / Collectio n Time Received Time / Laterality Volume 09/04/2007 Ian Kendrick MD LABORATORY SODIUM (09/04/2007) P athologist Signature Sodium 139 mmol/L Specimen (Source) Anatomical Location Collection Method / Collectio n Time Received Time / Laterality Volume 09/04/2007 Ian Kendrick MD LABORATORY ALANINE AMINO (ALT) (SGPT) (09/04/2007) P athologist Signature ALT 24 U/L Specimen (Source) Anatomical Location Collection Method / Collectio n Time Received Time / Laterality Volume 09/04/2007 Ian Kendrick MD LABORATORY AST (09/04/2007) P athologist Signature AST 21 U/L Specimen (Source) Anatomical Location Collection Method / Collectio n Time Received Time / Laterality Volume 09/04/2007 Ian Kendrick MD LABORATORY GLUCOSE (09/04/2007) P athologist Signature Glucose 112 mg/dL Specimen (Source) Anatomical Location Collection Method / Collectio n Time Received Time / Laterality Volume 09/04/2007 Ian Kendrick MD LABORATORY CREATININE (09/04/2007) P athologist Signature Creatinine 1.0 mg/dL Specimen (Source) Anatomical Location Collection Method / Collectio n Time Received Time / Laterality Volume 09/04/2007 Ian Kendrick MD LABORATORY SCANNED MISC. LAB RESULTS (09/04/2007) Specimen (Source) Anatomical Location Collection Method / Collectio n Time Received Time / Laterality Volume 09/04/2007 Narrative This result has an attachment that is no t available. Ian Kendrick MD LABORATORY documented in this encounter Visit Diagnoses Diagnosis DIAGNOSIS NOT YET DEFINED - Primary documented in this encounter Care Teams Mechanical Shop Laborer Relationship Specialty Start Date End Date Ian Kendrick MD PCP - General 11/19/07 02/21/14 [place] [address] [place] [address] documented as of this encounter
--- OUTSIDE RECORDS SUMMARY | 2022-05-15 22:42 | XMS_ITS | Encounter Summary ---
:1955 Author Organization [facility] Address [address] [place] [address] Care Team Providers Name Role Phone Ian Kendrick MD Primary Care Provider [phone] Froylan Louise MD Primary Care Provider Unavailable Froylan Louise MD Unavailable Unavailable Froylan Louise MD Unavailable Unavailable Esthela Corea RN Unavailable Unavailable So Dodd MD Primary Care Provider Froylan Louise MD Primary Care Provider Unavailable So Dodd MD Unavailable So Dodd MD Primary Care Provider Encounter Details Date Type Department Care Team Description 09/09/2007 [facility] [place] [address] [place] [address] [facility] [phone] [facility] N [id number] (Wo rk) Social History Tobacco Use Types [...] 4 or more times a w [place] 05/25/2021 alcohol? How many drinks containing [...] you attend bahai or Patient refused 2020 scientology services? Do [...] documented as of this encounter Care Teams Roll Scale Worker Relationship Specialty Start Date End Date Ian Kendrick PCP - General 11/19/07 02/21/14 MD Jeremiah [facility] [address]50 [place] [address] Froylan Louise MD PCP - General Family Practice 02/22/14 Froylan Louise MD PCP - Assigned PCP 03/13/14 08/25/18 So Dodd MD PCP - General Family Medicine 01/10/22 01/17/22 [address] [place] [address] Froylan Louise MD PCP - General Family Medicine 01/18/22 So Dodd MD PCP - General Family Medicine 02/21/22 [address] [place] [address] Froylan Louise MD Assigned PCP 03/13/14 2 Esthela Corea RN Personal Advocate & Family Medicine 10/16/20 Liaison (PAL) So Dodd MD Assigned PCP 01/05/22 [address] [place] [address] documented as of this encounter
--- OUTSIDE RECORDS SUMMARY | 2022-05-15 22:42 | XMS_ITS | Encounter Summary ---
:1955 Author Organization [facility] Address [address] [place] [address] Care Team Providers Name Role Phone Ian Kendrick MD Primary Care Provider [phone] Froylan Louise MD Primary Care Provider Unavailable Froylan Louise MD Unavailable Unavailable Froylan Louise MD Unavailable Unavailable Esthela Corea RN Unavailable Unavailable So Dodd MD Primary Care Provider Froylan Louise MD Primary Care Provider Unavailable So Dodd MD Unavailable So Dodd MD Primary Care Provider Encounter Details Date Type Department Care Team Description 03/06/2007 [facility] [place] [address] [place] [address]16 [facility] [phone] [facility] N [id number] (Wo rk) Social History Tobacco Use Types [...] you attend confucianism or Patient refused 2020 restorationism services? Do [...] documented as of this encounter Care Teams Oil Lease Operator Relationship Specialty Start Date End Date Ian Kendrick PCP - General 11/19/07 02/21/14 MD Jeremiah [facility] [address] [place] [address] Froylan Louise MD PCP - General Family Practice 02/22/14 Froylan Louise MD PCP - Assigned PCP 03/13/14 08/25/18 So Dodd MD PCP - General Family Medicine 01/10/22 01/17/22 [address] [place] [address] Froylan Louise MD PCP - General Family Medicine 01/18/22 So Dodd MD PCP - General Family Medicine 02/21/22 [address] [place] [address] Froylan Louise MD Assigned PCP 03/13/14 2 Esthela Corea RN Personal Advocate & Family Medicine 10/16/20 Liaison (PAL) So Dodd MD Assigned PCP 01/05/22 [address] [place] [address] documented as of this encounter
--- OUTSIDE RECORDS SUMMARY | 2022-05-15 22:42 | XMS_ITS | Encounter Summary ---
:1955 Author Organization [facility] Address [address] [place] [address] Care Team Providers Name Role Phone Ian Kendrick MD Primary Care Provider [phone] Encounter Details Date Type Department Care Team Description 09/19/2006 Orders Only [facility] Ian Kendrick DIAGNO SIS NOT YET Clinic [place] Daniels MD DEFINED (Primary Dx) [address] [facility] [phone] 7338 [facility] [phone] [place] [address] (Wo rk) Social History Tobacco [...] attend oriental orthodox or Patient refused 2020 lutheran services? Do [...] Name Priority Date/Time Associated Diagnosis Comme nts COLONOSCOPY Routine 09/19/2006 DIAGNOSIS NOT YET DEFINED documented in this encounter Results COLONOSCOPY (09/19/2006) Specimen (Source) Anatomical Location Collection Method / Collectio n Time Received Time / Laterality Volume 09/19/2006 Narrative This result has an attachment that is no t available. Ian Kendrick MD PROCEDURES documented in this encounter Visit Diagnoses Diagnosis DIAGNOSIS NOT YET DEFINED - Primary documented in this encounter Care Teams Rounding Machine Operator Relationship Specialty Start Date End Date Ian Kendrick MD PCP - General 11/19/07 02/21/14 [facility] 3850 [place] [address] documented as of this encounter
--- OUTSIDE RECORDS SUMMARY | 2022-05-15 22:42 | XMS_ITS | Encounter Summary ---
:1955 Author Organization [facility] Address [address] [place] [address] Care Team Providers Name Role Phone Ian Kendrick MD Primary Care Provider [phone] Froylan Louise MD Primary Care Provider Unavailable Froylan Louise MD Unavailable Unavailable Froylan Louise MD Unavailable Unavailable Esthela Corea RN Unavailable Unavailable So Dodd MD Primary Care Provider Froylan Louise MD Primary Care Provider Unavailable So Dodd MD Unavailable So Dodd MD Primary Care Provider Encounter Details Date Type Department Care Team Description 09/28/2006 [facility] Ian Kendrick, DISCHARGE [place]haya [place] [address] [place] [address] 9007 [facility] [phone] [facility] [address] (Wo rk) Social History Tobacco Use [...] containing 4 or more times a w [place] 05/25/2021 alcohol? How many drinks containing alcohol [...] you attend anabaptism or Patient refused 2020 sikhism services? Do you belong to any clubs or Yes 05/25/2021 organizations such as anabaptism groups, unions, [employer] 2 Greatness or athletic groups, or school groups? How [...] documented as of this encounter Care Teams Him Specialists Relationship Specialty Start Date End Date Ian Kendrick PCP - General 11/19/07 02/21/14 MD Jeremiah [facility] [address] [place] [address] Froylan Louise MD PCP - General Family Practice 02/22/14 Froylan Louise MD PCP - Assigned PCP 03/13/14 08/25/18 So Dodd MD PCP - General Family Medicine 01/10/22 01/17/22 [address] [place] [address] Froylan Louise MD PCP - General Family Medicine 01/18/22 So Dodd MD PCP - General Family Medicine 02/21/22 [address] [place], [place] 58[address] Froylan Louise MD Assigned PCP 03/13/14 2 Esthela Corea RN Personal Advocate & Family Medicine 10/16/20 Liaison (PAL) So Dodd MD Assigned PCP 01/05/22 [address] [place] [address] documented as of this encounter
--- OUTSIDE RECORDS SUMMARY | 2022-05-15 22:42 | XMS_ITS | Encounter Summary ---
:1955 Author Organization [facility] Address [address] [place] [address] Care Team Providers Name Role Phone Unavailable Primary Care Provider Unavailable Encounter Details Date Type Department Care Team Description 10/23/2007 Orders Only [facility] Ian Kendrick SCREEN ING-DIABETES MELLITUS; Clinic [facility] MD Jeremiah SCREENING-LIPOID DISORDERS; [address] [facility] SCREENING MAL NEOP-PROSTATE [place], [place] CLINIC [address] 5990 [facility] [phone] [place] [address] (Wo rk) Social History Tobacco Use Types Packs/Day Years Used Date Smoking Tobacco: Former Cigarettes Comments: 2004 Alcohol Use Standard Drinks/Week Comments Yes 0 (1 standard drink = 0.6 oz pure alcoho l) 4 BEERS A WEEK Alcohol Habits Answer Date Recorded How often do you have a drink containing 4 or more times a w [place] 05/25/2021 alcohol? How many drinks containing alcohol [...] you attend quaker or Patient refused 2020 scientology services? Do [...] as of this encounter Visit Diagnoses Diagnosis Screening for diabetes mellitus Screening for lipoid disorders Special screening for malignant neoplasm of prostate documented in this encounter
--- OUTSIDE RECORDS SUMMARY | 2022-05-15 22:42 | XMS_ITS | Encounter Summary ---
:1955 Author Organization [place] Address [address] [place] [address] Care Team Providers Name Role Phone Unavailable Primary Care Provider Unavailable Encounter Details Date Type Department Care Team Description 10/27/2007 Orders Only [facility] SCR EENING-LIPOID DISORDERS; [facility] SCREENING-DIABETES MELLITUS; [address] [facility] SCREENING MAL NEOP-PROSTATE; [place] [address] VENOUS THROMBOSIS NOS [phone] Social History Tobacco Use Types Packs/Day Years Used Date Smoking Tobacco: Former Cigarettes Comments: 2004 Alcohol Use Standard Drinks/Week Comments Yes 0 (1 standard drink = 0.6 oz pure alcoho l) 4 BEERS A WEEK Alcohol Habits Answer Date Recorded How often do you have a drink containing 4 or more times a w [place] 05/25/2021 alcohol? How many drinks containing alcohol [...] you attend evangelical or Patient refused 2020 baptist services? Do [...] Procedure Name Priority Date/Time Associated Comments Diagnosis CL AFF PROTHROMBIN Routine 10/27/2007 11:50 Venous Thrombosis Results for this TIME AM CDT Nos procedure are i n the results section. HCL PROSTATE SPEC Routine 10/27/2007 10:02 Screening Mal Resul ts for this ANTIGEN,SCREEN AM CDT Neop-Prostate procedure ar e in the results section. HCL GLUCOSE Routine 10/27/2007 10:02 Screening-Diabetes Resul ts for this AM CDT Mellitus procedure are i n the results section. HCL ALT Routine 10/27/2007 10:02 Screening-Lipoid Results for this AM CDT Disorders procedure are i n the results section. CL AFF A.M.A. LIPID Routine 10/27/2007 10:02 Screening-Lipoid Results for this PANEL AM CDT Disorders procedure are i n the results section. documented in this encounter Results (ABNORMAL) PROTHROMBIN TIME (10/27/2007 11:50 AM CDT) P athologist Signature INR 1.30 (H) 0.86 - 1.14 [facility] Specimen Anatomical Collection Method Collection Time Receive d Time (Source) Location / / Volume Laterality 10/27/2007 11:50 10/27/2007 AM CDT 11:51 AM CDT Ian Kendrick MD LABORATORY Performing Organization Address City/State/ZIP Code Phon e Number [facility] [address] [place] [address] [facility] PROSTATE SPEC ANTIGEN,SCREEN (10/27/2007 10:02 AM CDT) athologist Signature PSA 0.33 0 - 4 ug/L [facility] Specimen Anatomical Collection Method Collection Time Receive d Time (Source) Location / / Volume Laterality 10/27/2007 10:02 10/27/2007 AM CDT 10:03 AM CDT Ian Kendrick MD LABORATORY Performing Organization Address City/State/ZIP Code Phon e Number [facility] [address] [place] [address] [facility] GLUCOSE (10/27/2007 10:02 AM CDT) athologist Signature Glucose 94 60 - 99 [place] mg/dL [facility] Specimen Anatomical Collection Method Collection Time Receive d Time (Source) Location / / Volume Laterality 10/27/2007 10:02 10/27/2007 AM CDT 10:03 AM CDT Ian Kendrick MD LABORATORY Performing Organization Address City/[facility]/ZIP Code Phon e Number [facility] [address] [place] [address] [phone] [facility] ALANINE AMINO (ALT) (SGPT) (10/27/2007 10:02 AM CDT) athologist Signature ALT 24 0 - 70 U/L [facility] Specimen Anatomical Collection Method Collection Time Receive d Time (Source) Location / / Volume Laterality 10/27/2007 10:02 10/27/2007 AM CDT 10:03 AM CDT Ian Kendrick MD LABORATORY Performing Organization Address [facility]/ZIP Code Phon e Number [facility] [address] [place] [address] [phone] [facility] (ABNORMAL) A.M.A. LIPID PANEL (10/27/2007 10:02 AM CDT) athologist Signature Cholesterol 176 0 - 200 [facility] mg/dL CLINIC LAB Comment: LDL Cholesterol is the primary guide to therapy: LDL-cholesterol goal in high risk patients is <100 mg/dL and in very high risk patients is <70 mg/dL. The NCEP recommends further evaluation of: patients with cholesterol <200 mg/dL if additional risk factors are present, cholesterol >240 mg/dL, triglycerides >150 mg/dL, or HDL <40 mg/dL. Triglycerides 107 0 - 150 mg/dL [facility] HDL Cholesterol 37 (L) 40 - 110 mg/dL [facility] LDL Cholesterol Calculated 118 0 - 129 mg/dL [facility] Comment: LDL Cholesterol is the primary guide to therapy: LDL-cholesterol goal in high risk patients is <100 mg/dL and in very high risk patients is <70 mg/dL. VLDL-Cholesterol 21 0 - 30 mg/dL [facility] Cholesterol/HDL Ratio 4.8 0.0 - 5.0 [facility] Specimen Anatomical Collection Method Collection Time Receive d Time (Source) Location / / Volume Laterality 10/27/2007 10:02 10/27/2007 AM CDT 10:03 AM CDT Ian Kendrick MD LABORATORY Performing Organization Address City/State/ZIP Code Phon e Number [address] [phone] [facility] documented in this encounter Visit Diagnoses Diagnosis Screening for lipoid disorders Screening for diabetes mellitus Special screening for malignant neoplasm of prostate Embolism and thrombosis of unspecified s ite documented in this encounter
--- OUTSIDE RECORDS SUMMARY | 2022-05-15 22:42 | XMS_ITS | Encounter Summary ---
:1955 Author Organization [place] Address [address] [place] [address] Care Team Providers Name Role Phone Ian Kendrick MD Primary Care Provider [phone] Encounter Details Date Type Department Care Team Description 07/16/2007 Orders Only [facility] Ian Kendrick DIAGNO SIS NOT YET Clinic App[place]andee Daniels MD DEFINED (Primary Dx) [address] [facility] [address] [address] [facility] [phone] [place] [address] (Wo rk) Social History Tobacco Use Types Packs/Day Years Used Date Smoking Tobacco: Never Assessed Alcohol Habits Answer Date Recorded How often do you have a drink containing 4 or more times a w [place] 05/25/2021 alcohol? How many drinks containing alcohol [...] Diagnosis Comme nts SCANNED MISC. LAB Routine 07/16/2007 DIAGNOSIS NOT YET RESULTS DEFINED HCL POTASSIUM Routine 07/16/2007 DIAGNOSIS NOT YET Results f or this DEFINED procedure are i n the results section . HCL GLUCOSE Routine 07/16/2007 DIAGNOSIS NOT YET Results fo r this DEFINED procedure are i n the results section . HCL SODIUM Routine 07/16/2007 DIAGNOSIS NOT YET Results fo r this DEFINED procedure are i n the results section . HCL CREATININE Routine 07/16/2007 DIAGNOSIS NOT YET Results for this DEFINED procedure are i n the results section . documented in this encounter Results POTASSIUM (07/16/2007) P athologist Signature Potassium 4.0 mmol/L Specimen (Source) Anatomical Location Collection Method / Collectio n Time Received Time / Laterality Volume 07/16/2007 Ian Kendrick MD LABORATORY SODIUM (07/16/2007) P athologist Signature Sodium 138 mmol/L Specimen (Source) Anatomical Location Collection Method / Collectio n Time Received Time / Laterality Volume 07/16/2007 Ian Kendrick MD LABORATORY GLUCOSE (07/16/2007) P athologist Signature Glucose 96 mg/dL Specimen (Source) Anatomical Location Collection Method / Collectio n Time Received Time / Laterality Volume 07/16/2007 Ian Kendrick MD LABORATORY CREATININE (07/16/2007) P athologist Signature Creatinine 0.9 mg/dL Specimen (Source) Anatomical Location Collection Method / Collectio n Time Received Time / Laterality Volume 07/16/2007 Ian Kendrick MD LABORATORY SCANNED MIS. LAB RESULTS (07/16/2007) Specimen (Source) Anatomical Location Collection Method / Collectio n Time Received Time / Laterality Volume 07/16/2007 Narrative This result has an attachment that is no t available. Ian Kendrick MD LABORATORY documented in this encounter Visit Diagnoses Diagnosis DIAGNOSIS NOT YET DEFINED - Primary documented in this encounter Care Teams Wrong Address Clerk Relationship Specialty Start Date End Date Ian Kendrick MD PCP - General 11/19/07 02/21/14 [facility] [address] [place] [address] documented as of this encounter
--- OUTSIDE RECORDS SUMMARY | 2022-05-15 22:42 | XMS_ITS | Encounter Summary ---
:1955 Author Organization [place] Address [address] [place] [address] Care Team Providers Name Role Phone Ian Kendrick MD Primary Care Provider [phone] Encounter Details Date Type Department Care Team Description 10/12/2006 Orders Only [facility] Ian Kendrick DIAGNO SIS NOT YET Clinic Augustasandee Daniels MD DEFINED (Primary Dx) [address] [facility] [address] 3104 [facility] [phone] [place] [address] (Wo rk) Social History [...] you attend spiritism or Patient refused 2020 lutheran services? Do [...] Date/Time Associated Diagnosis Comme nts COLONOSCOPY Routine 10/12/2006 DIAGNOSIS NOT YET DEFINED [facility] BREATHING CAPACITY (SEND Routine 06/05/2005 DIAGNOSIS NO T YET DEFINED OUT) [facility] BREATHING CAPACITY (SEND Routine 04/02/2004 DIAGNOSIS NO T YET DEFINED OUT) [facility] ELECTROCARDIOGRAM, COMP Routine 04/02/2004 DIAGNOSIS NOT YET DEFINED W/READ HC CHEST TWO VIEWS, FRONT/LAT Routine 04/02/2004 DIAGNOSIS N OT YET DEFINED documented in this encounter Results COLONOSCOPY (10/12/2006) Specimen (Source) Anatomical Location Collection Method / Collectio n Time Received Time / Laterality Volume 10/12/2006 Narrative This result has an attachment that is no t available. Ian Kendrick MD PROCEDURES BREATHING CAPACITY (SEND OUT) (06/05/2005) Specimen (Source) Anatomical Location Collection Method / Collectio n Time Received Time / Laterality Volume 06/05/2005 Narrative This result has an attachment that is no t available. Ian Kendrick MD PROCEDURES BREATHING CAPACITY (SEND OUT) (04/02/2004) Specimen (Source) Anatomical Location Collection Method / Collectio n Time Received Time / Laterality Volume 04/02/2004 Narrative This result has an attachment that is no t available. Ian Kendrick MD PROCEDURES CHEST X-RAY 2 VW (04/02/2004) Anatomical Region Laterality Modality Other Specimen (Source) Anatomical Location Collection Method / Collectio n Time Received Time / Laterality Volume 04/02/2004 Narrative This result has an attachment that is no t available. Ian Kendrick MD GENERAL IMAGING ELECTROCARDIOGRAM, COMP W/READ (04/02/2004) Specimen (Source) Anatomical Location Collection Method / Collectio n Time Received Time / Laterality Volume 04/02/2004 Narrative This result has an attachment that is no t available. Ian Kendrick MD EKG TECHNICAL documented in this encounter Visit Diagnoses Diagnosis DIAGNOSIS NOT YET DEFINED - Primary documented in this encounter Care Teams Boat Oar Maker Relationship Specialty Start Date End Date Ian Kendrick MD PCP - General 11/19/07 02/21/14 [place] [address] [place] [address] documented as of this encounter
--- OUTSIDE RECORDS SUMMARY | 2022-05-15 22:42 | XMS_ITS | Encounter Summary ---
:1955 Author Organization [place] Address [address] [place] [address] Care Team Providers Name Role Phone Ian Kendrick MD Primary Care Provider [phone] Encounter Details Date Type Department Care Team Description 05/01/2007 Orders Only [facility] Ian Kendrick DIAGNO SIS NOT YET Clinic Vansandee Daniels MD DEFINED (Primary Dx) [address] [facility] [address] 3[address] [facility] [phone] [place] [address] (Wo rk) Social History Tobacco [...] you attend quaker or Patient refused 2020 lutheran services? Do [...] Procedure Name Priority Date/Time Associated Diagnosis Comme [facility] RT DUPLEX EXTREM Routine 05/01/2007 DIAGNOSIS NOT YET DE FINED VENOUS,UNI OR LTD documented in this encounter Results RT DUPLEX EXTREM VENOUS,UNI OR LTD (05/01/2007) Anatomical Region Laterality Modality Other Specimen (Source) Anatomical Location Collection Method / Collectio n Time Received Time / Laterality Volume 05/01/2007 Narrative This result has an attachment that is no t available. Ian Kendrick MD SPECIAL IMAGING STUDIES documented in this encounter Visit Diagnoses Diagnosis DIAGNOSIS NOT YET DEFINED - Primary documented in this encounter Care Teams Domestic Maid Relationship Specialty Start Date End Date Ian Kendrick MD PCP - General 11/19/07 02/21/[address] [address] documented as of this encounter
--- OUTSIDE RECORDS SUMMARY | 2022-05-15 22:42 | XMS_ITS | Encounter Summary ---
:1955 Author Organization [place] Address [address] [place] [address] Care Team Providers Name Role Phone Ian Kendrick MD Primary Care Provider [phone] Encounter Details Date Type Department Care Team Description 10/12/2006 Orders Only [facility] Ian Kendrick DIAGNO SIS NOT YET Clinic Haddon Heightssandee Daniels MD DEFINED (Primary Dx) [address] [facility] [phone] 0389 [facility] [phone] [place] [address] (Wo rk) Social History Tobacco [...] you attend mandaeism or Patient refused 2020 christianity services? Do [...] Name Priority Date/Time Associated Diagnosis Comme nts X-RAY ABDOMEN AP VIEW (KUB) Routine 02/03/2007 DIAGNOSIS NOT YET DEFINED CL AFF SURGICAL PATHOLOGY Routine 10/12/2006 DIAGNOSIS NOT Y ET DEFINED documented in this encounter Results X-RAY ABDOMEN 1 VW (02/03/2007) Anatomical Region Laterality Modality Other Narrative This result has an attachment that is no t available. Ian Kendrick MD GENERAL IMAGING SURGICAL PATHOLOGY (10/12/2006) Specimen (Source) Anatomical Location Collection Method / Collectio n Time Received Time / Laterality Volume 10/12/2006 Narrative This result has an attachment that is no t available. Ian Kendrick MD LABORATORY documented in this encounter Visit Diagnoses Diagnosis DIAGNOSIS NOT YET DEFINED - Primary documented in this encounter Care Teams Optical Instrument Inspector Relationship Specialty Start Date End Date Ian Kendrick MD PCP - General 11/19/07 02/21/14 [place] [address] [place] [address] documented as of this encounter
--- OUTSIDE RECORDS SUMMARY | 2022-05-15 22:42 | XMS_ITS | Encounter Summary ---
:1955 Author Organization [place] Address [address] [place] [address] Care Team Providers Name Role Phone Ian Kendrick MD Primary Care Provider [phone] Reason for Referral Specialty Diagnoses / Procedures Referred By Contact Refer red To Contact Ian Kendrick And MD rufus [facility] [address] [place], [place] [address] Referral ID Status Reason Start Date Expiration Date Visits Requ ested Visits Authorized Encounter Details Date Type Department Care Team Description 08/02/2005 Orders Only [facility] Ian Kendrick DIAGNO SIS NOT YET Clinic Chhaya Daniels MD DEFINED (Primary Dx) [address] [place], [place] CLINIC [address] [facility]7 [facility] [phone] [place] [address] (Wo rk) Social History Tobacco [...] you attend synagogue or Patient refused 2020 episcopalian services? Do [...] as of this encounter Visit Diagnoses Diagnosis DIAGNOSIS NOT YET DEFINED - Primary documented in this encounter Care Teams Rotary Drier Operator Relationship Specialty Start Date End Date Ian Kendrick MD PCP - General 11/19/07 02/21/14 [place] [address] [place] [address] documented as of this encounter
--- OUTSIDE RECORDS SUMMARY | 2022-05-15 22:42 | XMS_ITS | Encounter Summary ---
:1955 Author Organization [place] Address [address] [place] [address] Care Team Providers Name Role Phone Ian Kendrick MD Primary Care Provider [phone] Encounter Details Date Type Department Care Team Description 03/06/2007 Orders Only [facility] Ian Kendrick DIAGNO SIS NOT YET Clinic [place] Rapid[place]andee Daniels MD DEFINED (Primary Dx) [address] [facility] [address] 6591 [facility] [phone] [place] [address] (Wo rk) Social History Tobacco [...] you attend rastafarian or Patient refused 2020 oriental orthodox services? [...] Date/Time Associated Diagnosis Comme nts CL AFF SURGICAL PATHOLOGY Routine 03/06/2007 DIAGNOSIS NOT Y ET DEFINED CL AFF SURGICAL PATHOLOGY Routine 09/19/2006 DIAGNOSIS NOT Y ET DEFINED documented in this encounter Results SURGICAL PATHOLOGY (03/06/2007) Specimen (Source) Anatomical Location Collection Method / Collectio n Time Received Time / Laterality Volume 03/06/2007 Narrative This result has an attachment that is no t available. Ian Kendrick MD LABORATORY SURGICAL PATHOLOGY (09/19/2006) Specimen (Source) Anatomical Location Collection Method / Collectio n Time Received Time / Laterality Volume 09/19/2006 Narrative This result has an attachment that is no t available. Ian Kendrick MD LABORATORY documented in this encounter Visit Diagnoses Diagnosis DIAGNOSIS NOT YET DEFINED - Primary documented in this encounter Care Teams Sports Betting Manager Relationship Specialty Start Date End Date Ian Kendrick MD PCP - General 11/19/07 02/21/14 [place] [address] [place] [address] documented as of this encounter
--- OUTSIDE RECORDS SUMMARY | 2022-05-15 22:42 | XMS_ITS | Encounter Summary ---
:1955 Author Organization [place] Address [address] [place] [address] Care Team Providers Name Role Phone Ian Kendrick MD Primary Care Provider [phone] Froylan Louise MD Primary Care Provider Unavailable Froylan Louise MD Unavailable Unavailable Froylan Louise MD Unavailable Unavailable Esthela Corea RN Unavailable Unavailable So Dodd MD Primary Care Provider Froylan Louise MD Primary Care Provider Unavailable So Dodd MD Unavailable So Dodd MD Primary Care Provider Encounter Details Date Type Department Care Team Description 10/12/2006 [facility] Ian [place] [address] [place] [address] [facility] [phone] [facility] N [id number] (Wo rk) Social History Tobacco Use Types [...] you attend catholic or Patient refused 2020 caodaism services? Do [...] documented as of this encounter Care Teams Liquefaction And Regasification Helper Relationship Specialty Start Date End Date Ian Kendrick PCP - General 11/19/07 02/21/14 MD Jeremiah [facility] [address] [place] [address] Froylan Louise MD PCP - General Family Practice 02/22/14 Froylan Louise MD PCP - Assigned PCP 03/13/14 08/25/18 So Dodd MD PCP - General Family Medicine 01/10/22 01/17/22 [address] [place] [address] Froylan Louise MD PCP - General Family Medicine 01/18/22 So Dodd MD PCP - General Family Medicine 02/21/22 [address] [place] [address] Froylan Louise MD Assigned PCP 03/13/14 2 Esthela Corea RN Personal Advocate & Family Medicine 10/16/20 Liaison (PAL) So Dodd MD Assigned PCP 01/05/22 [address] [place] [address] documented as of this encounter
--- OUTSIDE RECORDS SUMMARY | 2022-05-15 22:42 | XMS_ITS | Encounter Summary ---
:1955 Author Organization [place] Address [address] [place] [address] Care Team Providers Name Role Phone Ian Kendrick MD Primary Care Provider [phone] Encounter Details Date Type Department Care Team Description 09/17/[address] [facility] Ian Kendrick DIAGNO SIS NOT YET Clinic [place]andee Daniels MD DEFINED (Primary Dx) [address] [facility] [phone] 1574 [facility] [phone] [place] [address] (Wo rk) Social History Tobacco Use Types Packs/Day Years Used Date Smoking Tobacco: Never Assessed Alcohol Habits Answer Date Recorded How often do you have a drink containing 4 or more times a w [place] 05/25/2021 alcohol? How many drinks containing alcohol [...] you attend voodoo or Patient refused 2020 pentecostalism services? Do [...] Priority Date/Time Associated Diagnosis Comme nts SCANNED [facility]. LAB RESULTS Routine 09/17/2006 DIAGNOSIS NOT Y ET DEFINED documented in this encounter Results SCANNED MIS. LAB RESULTS (09/17/2006) Specimen (Source) Anatomical Location Collection Method / Collectio n Time Received Time / Laterality Volume 09/17/2006 Narrative This result has an attachment that is no t available. Ian Kendrick MD LABORATORY documented in this encounter Visit Diagnoses Diagnosis DIAGNOSIS NOT YET DEFINED - Primary documented in this encounter Care Teams Network Controller Relationship Specialty Start Date End Date Ian Kendrick MD PCP - General 11/19/07 02/21/14 [place] [address] [place] [address] documented as of this encounter
--- OUTSIDE RECORDS SUMMARY | 2022-05-15 22:42 | XMS_ITS | Encounter Summary ---
:1955 Author Organization [place] Address [address] [place] [address] Care Team Providers Name Role Phone Ian Kendrick MD Primary Care Provider [phone] Encounter Details Date Type Department Care Team Description 11/28/2006 Orders Only [facility] Ian Kendrick DIAGNO SIS NOT YET Clinic Enterprisesandee Daniels MD DEFINED (Primary Dx) [address] [facility] [address] 5853 [facility] [phone] [place] [address] (Wo rk) Social History Tobacco [...] you attend shinto or Patient refused 2020 sabianism services? Do [...] Priority Date/Time Associated Diagnosis Comme nts HCL PROSTATE SPEC Routine 11/28/2006 DIAGNOSIS NOT YET Resul ts for this ANTIGEN,SCREEN DEFINED procedure are in the results section . documented in this encounter Results PROSTATE SPEC ANTIGEN,SCREEN (11/28/2006) P athologist Signature PSA 0.18 ng/mL Specimen (Source) Anatomical Location Collection Method / Collectio n Time Received Time / Laterality Volume 11/28/2006 Narrative This result has an attachment that is no t available. Ian Kendrick MD LABORATORY documented in this encounter Visit Diagnoses Diagnosis DIAGNOSIS NOT YET DEFINED - Primary documented in this encounter Care Teams Gas Transfer Operator Relationship Specialty Start Date End Date Ian Kendrick MD PCP - General 11/19/07 02/21/[address] [address] documented as of this encounter
--- OUTSIDE RECORDS SUMMARY | 2022-05-15 22:42 | XMS_ITS | Encounter Summary ---
:1955 Author Organization [place] Address [address] [place] [address] Care Team Providers Name Role Phone Ian Kendrick MD Primary Care Provider Encounter Details Date Type Department Care Team Description 09/09/2007 Orders Only [facility] Ian Kendrick DIAGNO SIS NOT YET Clinic [place] MD DEFINED (Primary Dx) [address] [facility] [phone] 7[address] [facility] [phone] [place] [address] (Wo rk) Social History Tobacco [...] you attend taoist or Patient refused 2020 adventist services? Do [...] Comme nts CL AFF SURGICAL PATHOLOGY Routine 09/09/2007 DIAGNOSIS NOT Y ET DEFINED documented in this encounter Results SURGICAL PATHOLOGY (09/09/2007) Specimen (Source) Anatomical Location Collection Method / Collectio n Time Received Time / Laterality Volume 09/09/2007 Narrative This result has an attachment that is no t available. Ian Kendrick MD LABORATORY documented in this encounter Visit Diagnoses Diagnosis DIAGNOSIS NOT YET DEFINED - Primary documented in this encounter Care Teams Appian Developer Relationship Specialty Start Date End Date Ian Kendrick MD PCP - General 11/19/07 02/21/14 [place] [address] [place] [address] documented as of this encounter
--- OUTSIDE RECORDS SUMMARY | 2022-05-15 22:42 | XMS_ITS | Encounter Summary ---
:1955 Author Organization [place] Address [address] [place] [address] Care Team Providers Name Role Phone Ian Kendrick MD Primary Care Provider [phone] Froylan Louise MD Primary Care Provider Unavailable Froylan Louise MD Unavailable Unavailable Froylan Louise MD Unavailable Unavailable Esthela Corea RN Unavailable Unavailable So Dodd MD Primary Care Provider Froylan Louise MD Primary Care Provider Unavailable So Dodd MD Unavailable So Dodd MD Primary Care Provider Encounter Details Date Type Department Care Team Description 03/24/2007 [facility] Ian Kendrick [id number] [facility] MD Jeremiah DISCHARGE [address] [place], [place] [address] [facility] [address] [facility] [phone] [place] [address] (Wo rk) Social History [...] you attend synagogue or Patient refused 2020 presybeterian services? Do [...] documented as of this encounter Care Teams Boom Stick Man Relationship Specialty Start Date End Date Ian Kendrick PCP - General 11/19/07 02/21/14 MD Jeremiah [facility] [address] [place] [address] Froylan Louise MD PCP - General Family Practice 02/22/14 Froylan Louise MD PCP - Assigned PCP 03/13/14 08/25/18 So Dodd MD PCP - General Family Medicine 01/10/22 01/17/22 [address] [place] [address] Froylan Louise MD PCP - General Family Medicine 01/18/22 So Dodd MD PCP - General Family Medicine 02/21/22 [address] [place] [address] Froylan Louise MD Assigned PCP 03/13/14 2 Esthela Corea RN Personal Advocate & Family Medicine 10/16/20 Liaison (PAL) So Dodd MD Assigned PCP 01/05/22 [address] [place] [address] documented as of this encounter
--- OUTSIDE RECORDS SUMMARY | 2022-05-15 22:43 | XMS_ITS | Clinical Summary ---
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 EMERGENCY CARE PLAN Presenting Problem Signs and Symptoms Tr eatment Plan Questions or conerns during clinic hour s I will call the clinic directly Questions or conerns outside clinic twan rs I will call the 24 hour nurse line at [phone] Patient needs to schedule an appointmen t I will call the 24 hour scheduling team at [phone] or clinic directly Same day treatment I will call the clin ic first, nurse line if after hours, urgent care and express care if needed DX V65.8 REPLACED WITH 06411 [facility] INTERMEDIATE (09/28/2012) Mild persistent asthma 04/18/2010 Anticardiolipin antibody [...] Problem list name updated by automated p Hipcricketess. 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 nt use of anticoagulants with INR goal of 2.0-3.0 05/10/2022 Telephone [facility] So Dodd Anticoagula tion MD (Eating 1 avoca do everyday) 05/10/2022 Anticoagulation Anticoagulation Jazzy Ramos, Chronic deep vein thrombosis (DVT) of lower extremity, unspecified laterality, unspecified vein (H) (Primary Dx); Therapy Visit RN vermin exterminator curr ent use of anticoagulant therapy; Postthrombotic syndrome; Anticardiolipin antibody positive; vermin exterminator curre nt use of anticoagulants with INR goal of 2.0-3.0 05/10/2022 Travel 04/26/2022 Lab Lab Postthrombotic syndrome; Chronic deep ve in thrombosis (DVT) of lower extremity, unspecified laterality, unspecified vein (H); Anticardiolipin antibody positive; 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 exterminator curre nt use of anticoagulants with INR goal of 2.0-3.0 04/26/2022 Anticoagulation Anticoagulation Mary Humphrey eep vein thrombosis (DVT) of lower extremity, unspecified laterality, unspecified vein (H) (Primary Dx); Therapy Visit Shaniqua Hein RN vermin exterminator cur rent use of anticoagulant therapy; Postthrombotic syndrome; Anticardiolipin antibody positive; [facility] curre nt use of anticoagulants with INR goal of 2.0-3.0 04/26/2022 Travel 04/24/2022 Lab Lab Postthrombotic syndrome; Chronic deep ve in thrombosis (DVT) of lower extremity, unspecified laterality, unspecified vein (H); Anticardiolipin antibody positive; vermin exterminator curre nt use of anticoagulants with INR goal of 2.0-3.0 04/24/2022 Anticoagulation Anticoagulation Elfiki, Chronic d eep vein thrombosis (DVT) of lower extremity, unspecified laterality, unspecified vein (H) (Primary Dx); Therapy Visit Diana Conrad RN vermin exterminator cur rent use of anticoagulant therapy; Postthrombotic syndrome; Anticardiolipin antibody positive; vermin exterminator curre nt use of anticoagulants with INR goal of 2.0-3.0 04/24/2022 Telephone [facility] So Dodd, Call Back ( Patient MD called in reque sting Warfarin instru ctions would like a ca ll back) 04/24/2022 Travel 04/12/2022 Telephone [facility] So Dodd Call Back 04/08/2022 Office Visit [facility] So Dodd, Pre-op eval uation; Anal stenosis; Mild persistent asthma without complication; Chronic deep ve in thrombosis (DVT) of lower extremity, unspecified laterality, unspecified vein (H); Insomnia, unspe cified type 04/08/2022 Travel 03/27/2022 Telephone [facility] So Dodd, Patient Req bozena VILLASEÑOR (Requesting to speak with CINDY Proctor) ; Anticoagulation (Warfarin Hold plan for procedure 04/19/22) 03/01/2022 Refill Family Practice Froylan Louise Medication Refill MD Sedrick 02/27/2022 Lab Lab Postthrombotic syndrome; Chronic deep ve in thrombosis (DVT) of lower extremity, unspecified laterality, unspecified vein (H); Anticardiolipin antibody positive; [facility] curre nt use of anticoagulants with INR goal of 2.0-3.0 02/27/2022 Anticoagulation Anticoagulation Elfiki, Chronic d eep vein thrombosis (DVT) of lower extremity, unspecified laterality, unspecified vein (H) (Primary Dx); Therapy Visit Diana Conrad RN [facility] cur rent use of anticoagulant therapy; Postthrombotic syndrome; Anticardiolipin antibody positive; [facility] curre nt use of anticoagulants with INR goal of 2.0-3.0 02/27/2022 Travel 02/21/2022 Office Visit Family Practice So Dodd, Acute deep vein thrombosis (DVT) of proximal vein of both lower extremities (H); [facility] curre nt use of anticoagulants with INR [...] laterality, unspecified vein (H); Anticardiolipin antibody positive; [facility] curre nt use of anticoagulants with INR goal of 2.0-3.0 02/21/2022 Anticoagulation Anticoagulation Elfiki, Chronic d eep vein thrombosis (DVT) of lower extremity, unspecified laterality, unspecified vein (H) (Primary Dx); Therapy Visit Diana Conrad RN vermin exterminator cur rent use of anticoagulant therapy; Postthrombotic syndrome; Anticardiolipin antibody positive; vermin exterminator curre nt use of anticoagulants with INR [...] you attend bahai or Patient refused 2020 church services? Do [...] contact No / Unsure 05/10/2022 12:29 PM PLATE GLASS INSTALLER HELPER with someone who was confirmed or [...] this topic Medical Devices Implanted Type Area High Lift Driver Device Shelf Model / Identifier Expiration Date Ser ial / Lot Tibial Insert Sz4 X8mm Right: 017 [id number] / Implanted: Qty: 1 on 08/20/2013 by Leon hill, Jose Meyers MD at [facility] Knee / [id number] Procedures Procedure Name Priority Date/Time Associated Diagnosis Comme nts INR POINT OF CARE Routine 05/10/2022 12:31 Postthrombotic Resu lts for this PM PLATE GLASS INSTALLER HELPER syndrome procedure are in Chronic deep vein [...] unspecified vein (H) Anticardiolipin antibody positiv e [facility] current use of anticoagulants with INR [...] INR point of care (05/10/2022 12:31 PM PLATE GLASS INSTALLER HELPER)Only the most recent of5 resultswithin the time period is included. P athologist Signature INR 4.2 (H) 0.9 - 1.1 05/10/2022 [facility] 12:37 PM PLATE GLASS INSTALLER HELPER Specimen Anatomical Collection Method Collection Time Receive d Time (Source) Location / / Volume Laterality Blood STRUCTURE OF Capillary / 05/10/2022 12:31 05/10/2022 FINGER OF RIGHT Unknown PM PLATE GLASS INSTALLER HELPER 12:32 PM PLATE GLASS INSTALLER HELPER HAND / Unknown Narrative [facility] - 05/10/2022 12:37 PM PLATE GLASS INSTALLER HELPER This test is intended for monitoring Cou madin therapy. Results are not accurate in patients with prolonged INR due to facto r deficiency. Froylan Louise MD LAB - BLOOD ORDERABLES Performing Organization Address City/State/ZIP Code Phon [place] [address] Lab [address] [facility] Lab (no room number, 1st floor of clinic) [place] [address], [phone] [facility] [address] [facility] Lab (no room number, 1st [...] and gender (Kaylen et al., NEJM, DOI: [id number]/[id number]) Specimen Anatomical Collection Method / Collection Time Recei lindy Time (Source) Location / Volume Laterality Blood BLOOD SPECIMEN / Venipuncture / 04/08/2022 10:09 04/08 Unknown Unknown AM CDT 10:10 AM CDT So Dodd MD LAB - BLOOD ORDERABLES Performing Organization Address City/State/ZIP Code Phon e Number [facility]X LAB[facility]ATORY [facility] [place], [place] [phone] [facility] [address] [place] [address] Lab (no room number, 1st floor of clinic) OX LAB[facility]ATORY [facility] [place], [place] [phone] [facility] [address] [place] [facility] [address] Lab (no room number, 1st floor [...] City/State/ZIP Code Phon e Number [place] [address] Lab [address] [facility] Lab (no room number, 1st floor of clinic) [place] [address], [facility] [address] [facility] Lab (no room number, 1st floor of clinic) from Last 3 Months Insurance Payer Benefit Plan / Subscriber ID Effective Phone Address T ype Group Dates [facility] [id number] 2015-Pres [phone] [address] HMO OPEN ACCESS ent [address] [place] [address] [address] (Home) [place] [id number] [address] Christine OnCare Self 1955 [address] (Home) [place] [address] Advance Directives For more information, please contact: [phone] Latest Code Status on File Code Status Date Activated Date Inactivated Comments Full Code 01/15/2021 11:12 AM 01/19/2021 11:41 AM All basic and advanced life-sustaining interventions are performed as antionette ropriate Question Answer Comments Code status determined by: Discussion with patient/ legal de cision maker Care Teams Diamond Sizer And Grader Relationship Specialty Start Date End Date So Dodd MD PCP - General Family Medicine 02/21/22 [address] [place] [address] Esthela Corea RN Personal Advocate & Liaison Family Medicine 10/16 (PAL) So Dodd MD Assigned PCP 01/05/22 [address] [place] [address]
--- OUTSIDE RECORDS SUMMARY | 2022-05-15 22:43 | XMS_ITS | Clinical Summary ---
:[address] [facility] Address [address] [place] [address] Care Team Providers Name Role Phone Unavailable [...] for each transition of care or referral. [facility] [employer] Allergies No known active allergies Medications Medication [...] ID Dates Group BUILDERS [employer] BUILDERS [id number] 06/29/2020-Pr [phone] ATTN : [employer] [place] esent [phone] [place] [address] [facility] HP SELF [id number] 06/23/2015-Pr Com mercial INSURED esent EmmettVirgil fonseca Workers Comp Self 1955 [phone] (Home) [place] [address]
--- OUTSIDE RECORDS SUMMARY | 2022-05-15 22:43 | XMS_ITS | Encounter Summary ---
:1955 Author Organization [place] Address [address] [place] [address] Care Team Providers Name Role Phone Nahomy, Esthela Conrad RN Unavailable Unavailable So Dodd MD Unavailable So Dodd MD Primary Care Provider Reason for Visit Reason Onset Date Comments Anticoagulation 05/10/2022 Eating 1 avocado pedro Encounter Details Date Type Department Care Team Description 05/10/2022 [facility] So Dodd MD Anticoagulation (Eating [address] [facility] [place] [address] avocado everyday) [id number] [place] [phone] Social History Tobacco Use Types [...] containing 4 or more times a w akhiok 05/25/2021 alcohol? How many drinks containing alcohol [...] you attend congregational or Patient refused 2020 anabaptism services? Do [...] contact No / Unsure 05/10/2022 12:29 PM ELECTRONIC ASSEMBLER GROUP LEADER with someone who was confirmed or [...] today's INR. Jazzy Ramos RN Anticoagulation Clinic TRONIC ASSEMBLER GROUP LEADER Telephone Encounter - Marina Gaines - 05/10/2022 1:55 PM CST Reason for call: Other Patient called regarding (reason for call): call back Additional comments: Has more information for Jazzy in Anticoagulation Phone number to reach patient: Cell number on file: Telephone Information: Best Time: Anytime Can we leave a detailed message on this number? YES Travel screening: Not Applicable TRONIC ASSEMBLER GROUP LEADER documented in this encounter Plan of Treatment Upcoming Encounters Date Type Specialty Care Team Description 05/20/2022 Lab Lab documented as of this encounter Visit Diagnoses Not on filedocumented in this encounter Care Teams Framing Mill Operator Relationship Specialty Start Date End Date So Dodd MD PCP - General Family Medicine 02/21/22 [address] [place] [address] Esthela Corea RN Personal Advocate & Liaison Family Medicine 10/16 (PAL) So Dodd MD Assigned PCP 01/05/22 [address] [place] [address] documented as of this encounter
--- OUTSIDE RECORDS SUMMARY | 2022-05-15 22:43 | XMS_ITS | Encounter Summary ---
:1955 Author Organization [place] Address [address] [place] [address] Care Team Providers Name Role Phone Esthela [...] you attend hoahaoism or Patient refused 2020 nondenominational services? Do [...] contact No / Unsure 05/10/2022 12:29 PM SPICE CLEANER with someone who was confirmed or suspected to have Coronavirus/COVID-19? documented as of this encounter Plan of Treatment Upcoming Encounters Date Type Specialty Care Team Description 05/20/2022 Lab Lab documented as of this encounter Visit Diagnoses Not on filedocumented in this encounter Care Teams Oracle Hyperion Consultant Relationship Specialty Start Date End Date So Dodd MD PCP - General Family Medicine 02/21/22 [address] [place], [place] [id number] Esthela Corea RN Personal Advocate & Liaison Family Medicine 10/16 (PAL) So Dodd MD Assigned PCP 01/05/22 [address] [place], [place] [id number] documented as of this encounter
--- OUTSIDE RECORDS SUMMARY | 2022-05-15 22:43 | XMS_ITS | Encounter Summary ---
:1955 Author Organization [facility] Address [address] [address] Care Team Providers Name Role Phone Unavailable Primary Care Provider Unavailable Reason for Visit Procedure/Equipment (Routine) - Incomplete Specialty Diagnoses / Procedures Referred By Contact Refer red To Contact Diagnoses Acute bilateral low back pain with left-sided sciatica (HRC) Terry Tovar, DO Procedures [place] [address] [place] [address] Referral ID Status Reason Start Date Expiration Date Visits V isits Requested Authorized [id number] Incomplete 06/29/2020 09/28/2021 1 1 Encounter Details Date Type Department Care Team Description 06/29/2020 [facility] Terry Martin Acute bilat eral low Procedure [place] [address] J, DO back pain with Radiology [place] [address] [address] left-sided sciatica [address] [place], [place] [address] [address] [place], [place] [phone] [address] (Work) [phone] Social History Tobacco Use Types Packs/Day Years Used Date Smoking Tobacco: Never Assessed Sex Assigned at Date Recorded Not on file documented as of this encounter Plan of Treatment Not on filedocumented as of this encounter Procedures Procedure Name Priority Date/Time Associated Diagnosis Comme nts MR LUMBAR SPINE WO STAT 06/29/2020 1:24 PM Acute bilateral low Results for this IV CONT PUMPING STATION ENGINEER back pain with procedure are in left-sided sciatica the resu lts section. documented in this encounter Results MR Lumbar Spine WO IV Cont (06/29/2020 1:24 PM PUMPING STATION ENGINEER) Anatomical Region Laterality Modality Spine, L-Spine, Skeletal Magnetic Resona nce Specimen (Source) Anatomical Collection Method Collection Time Re ceived Time Location / / Volume Laterality 06/29/2020 12:49 PM PUMPING STATION ENGINEER Impressions 06/29/2020 1:35 PM PUMPING STATION ENGINEER INDICATION: Low back pain with radicular symptoms [...]
--- OUTSIDE RECORDS SUMMARY | 2022-05-15 22:43 | XMS_ITS | Encounter Summary ---
:1955 Author Organization [place] Address [address] [place] [address] Care Team Providers Name Role Phone Esthela Corea RN Unavailable Unavailable So Dodd MD Unavailable So Dodd MD Primary Care Provider Encounter Details Date Type Department Care Team Description 05/10/[address] [facility] Pos tthrombotic syndrome; [facility] Chronic deep vein thrombosis (DVT) of lower extremity, unspecified laterality, unspecified vein (H); [address] [facility] Anticardiolipin antibody pos itive; [place] [address] custodial current use of ant icoagulants with INR [...] you attend synagogue or Patient refused 2020 faith services? Do [...] contact No / Unsure 05/10/2022 12:29 PM RETAIL COSMETICS SALES COUNTER MANAGER with someone who was confirmed or suspected to have Coronavirus/COVID-19? documented as of this encounter Plan of Treatment Upcoming Encounters Date Type Specialty Care Team Description 05/20/2022 Lab Lab documented as of this encounter Procedures Procedure Name Priority Date/Time Associated Diagnosis Comme nts INR POINT OF CARE Routine 05/10/2022 12:31 Postthromboti c syndrome Results for this PM RETAIL COSMETICS SALES COUNTER MANAGER Chronic deep vein procedure are in thrombosis (DVT) of the resu lts lower extremity, section. unspecified laterality, unspecified vein (H) Anticardiolipin antibody positiv e custodial current use of anticoagulants with INR goal of 2.0-3.0 documented in this encounter Results (ABNORMAL) INR point of care (05/10/2022 12:31 PM RETAIL COSMETICS SALES COUNTER MANAGER) P athologist Signature INR 4.2 (H) 0.9 - 1.1 05/10/2022 [facility] 12:37 PM RETAIL COSMETICS SALES COUNTER MANAGER Specimen Anatomical Collection Method Collection Time Receive d Time (Source) Location / / Volume Laterality Blood STRUCTURE OF Capillary / 05/10/2022 12:31 05/10/2022 FINGER OF RIGHT Unknown PM RETAIL COSMETICS SALES COUNTER MANAGER 12:32 PM RETAIL COSMETICS SALES COUNTER MANAGER HAND / Unknown Narrative [facility] - 05/10/2022 12:37 PM RETAIL COSMETICS SALES COUNTER MANAGER This test is intended for monitoring Cou madin therapy. Results are not accurate in patients with prolonged INR due to facto r deficiency. Froylan Louise MD LAB - BLOOD ORDERABLES Performing Organization Address City/State/ZIP Code Phon e Number [place] [address] Lab [address] [facility] Lab (no room number, 1st floor of clinic) [place] [address], [facility] [address] [facility] Lab (no room number, 1st floor of clinic) documented in this encounter Visit Diagnoses Diagnosis Postthrombotic syndrome Postphlebetic syndrome without complicat ions Chronic deep vein thrombosis (DVT) of lo wer extremity, unspecified laterality, unspecified vein (H) Anticardiolipin antibody positive Other and unspecified nonspecific immuno logical findings custodial current use of anticoagulants with INR goal of 2.0-3.0 documented in this encounter Care Teams Stoker Mechanic Relationship Specialty Start Date End Date So Dodd MD PCP - General Family Medicine 02/21/22 [address] [place] [address] Esthela Corea RN Personal Advocate & Liaison Family Medicine 10/16 (PAL) So Dodd MD Assigned PCP 01/05/22 [address] [place] [address] documented as of this encounter
--- OUTSIDE RECORDS SUMMARY | 2022-05-15 22:43 | XMS_ITS | Encounter Summary ---
:1955 Author Organization [place] Address [address] [place] [address] Care Team Providers Name Role Phone Nahomy, Esthela Conrad RN Unavailable Unavailable So Dodd MD Unavailable So Dodd MD Primary Care Provider Reason for Visit Reason Onset Date Comments Compression socks 05/11/2022 Encounter Details Date Type Department Care Team Description 05/11/2022 [facility] Jayde Dodd MD Compression socks [place] [id number] [place] [address] [place] [address] [phone] Social History Tobacco Use Types Packs/Day Years [...] you attend methodist or Patient refused 2020 congregation services? Do [...] contact No / Unsure 05/10/2022 12:29 PM MATERIAL HAULER with someone who was confirmed or suspected to have Coronavirus/COVID-19? documented as of this encounter Miscellaneous Notes Telephone Encounter - Cheryl Garrett - 05/13/2022 10:41 AM CST Notified patient, waiting on response on where to fax order to Cheryl Garrett/ Hspt Tutor RIAL HAULER Telephone Encounter - So Dodd MD - 05/13/2022 10:29 AM CST PLACED . RIAL HAULER Telephone Encounter - Jackelin Jack - 05/11/2022 3:12 PM MATERIAL HAULER Reason for Call: Request for an order [...] 05/11/2022 at 3:12 PM by Jackelin Link RIAL HAULER documented in this encounter Plan of Treatment Upcoming Encounters Date Type Specialty Care Team Description 05/20/2022 Lab Lab documented as of this encounter Visit Diagnoses Diagnosis Bilateral leg edema - Primary Edema documented in this encounter Care Teams Crab Meat Processor Relationship Specialty Start Date End Date So Dodd MD PCP - General Family Medicine 02/21/22 [address] [place] [address] Esthela Corea RN Personal Advocate & Liaison Family Medicine 10/16 (PAL) So Dodd MD Assigned PCP 01/05/22 [address] [place] [address] documented as of this encounter
--- OUTSIDE RECORDS SUMMARY | 2022-05-15 22:43 | XMS_ITS | Encounter Summary ---
:1955 Author Organization [place] Address [facility] [place] [address] Care Team Providers Name Role Phone Esthela Corea RN Unavailable Unavailable So Dodd MD Unavailable So Dodd MD Primary Care Provider Encounter Details Date Type Department Care Team Description 05/10/2022 Anticoagulation [facility] Jazzy Ramos Chronic deep vein thrombosis (DVT) of lower extremity, unspecified laterality, unspecified vein (H) (Primary Dx); Therapy Visit Anticoagulation CINDY Conrad exterminator helper c urrent use of anticoagulant therapy; Clinic Postthrombotic syndrome; [facility] [facility] Anticardiolipin antibody pos itive; [place], [place] exterminator helper cu rrent use of anticoagulants with INR [...] you attend judaism or Patient refused 2020 islam services? Do [...] contact No / Unsure 05/10/2022 12:29 PM CHIP CRUSHER OPERATOR with someone who was confirmed or suspected [...] Lab visit scheduled Education provided: ??? Contact [phone] with any changes, questions or concerns. ??? how pain and inflammation can affect INR Plan made per [facility] anticoagulation protocol Jazzy Ramos RN Anticoagulation Clinic 05/10/2022 Anticoagulation Episode Summary Current INR goal: 2.0-3.0 TTR: 95.1 % (1 y) Target end date: Indefinite Send INR reminders to: [facility] Indications Chronic deep vein thrombosis (DVT) of lower extremity unspecified laterality unspecified vein (H) [I82.509] Long-term (current) use of anticoagulants [Z79.01] [Z79.01] 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] exterminator helper current use of anticoagulants with INR goal of 2.0-3.0 [Z79.01] Comments: Anticoagulation Care Providers Provider Role Specialty Phone number Froylan Louise MD Referring Family Medicine [phone] CRUSHER OPERATOR documented in this encounter Plan of [...] Other and unspecified nonspecific immuno logical findings exterminator helper current use of anticoagulants with INR goal of 2.0-3.0 documented in this encounter Care Teams Bush And Vine Farmer Fruit Crops Relationship Specialty Start Date End Date So Dodd MD PCP - General Family Medicine 02/21/22 [address] [place], [place] [id number] Esthela Corea RN Personal Advocate & Liaison Family Medicine 10/16 (PAL) So Dodd MD Assigned PCP 01/05/22 [address] [place] [address] documented as of this encounter
--- OUTSIDE RECORDS SUMMARY | 2022-05-15 22:43 | XMS_ITS | Encounter Summary ---
:1955 Author Organization [place] Address [address] [place] [address] Care Team Providers Name Role Phone Ian Kendrick MD Primary Care Provider [phone] Encounter Details Date Type Department Care Team Description 06/15/2005 Orders Only [facility] Ian Kendrick DIAGNO SIS NOT YET Clinic Forestsandee Daniels MD DEFINED (Primary Dx) [address] [facility] [phone] [address] [facility] [phone] [place] [address] (Wo rk) Social History Tobacco [...] you attend jainism or Patient refused 2020 advent services? Do [...] Associated Diagnosis Comme nts HCL LDL-CHOLESTEROL Routine 06/15/2005 DIAGNOSIS NOT YET Res ults for this DEFINED procedure are i n the results section . SCANNED MISC. LAB Routine 06/15/2005 DIAGNOSIS NOT YET RESULTS DEFINED HCL CHOL/HDL RATIO Routine 06/15/2005 DIAGNOSIS NOT YET Resu lts for this DEFINED procedure are i n the results section . HCL TSH Routine 06/15/2005 DIAGNOSIS NOT YET Results fo r this DEFINED procedure are i n the results section . HCL T4 FREE Routine 06/15/2005 DIAGNOSIS NOT YET Results fo r this DEFINED procedure are i n the results section . HCL POTASSIUM Routine 06/15/2005 DIAGNOSIS NOT YET Results f or this DEFINED procedure are i n the results section . HCL GLUCOSE Routine 06/15/2005 DIAGNOSIS NOT YET Results fo r this DEFINED procedure are i n the results section . HCL TRIGLYCERIDES Routine 06/15/2005 DIAGNOSIS NOT YET Resul ts for this DEFINED procedure are i n the results section . HCL ALT Routine 06/15/2005 DIAGNOSIS NOT YET Results fo r this DEFINED procedure are i n the results section . HCL AST Routine 06/15/2005 DIAGNOSIS NOT YET Results fo r this DEFINED procedure are i n the results section . HCL SODIUM Routine 06/15/2005 DIAGNOSIS NOT YET Results fo r this DEFINED procedure are i n the results section . HCL HDL CHOLESTEROL Routine 06/15/2005 DIAGNOSIS NOT YET Res ults for this DEFINED procedure are i n the results section . HCL CREATININE Routine 06/15/2005 DIAGNOSIS NOT YET Results for this DEFINED procedure are i n the results section . HCL CHOLESTEROL Routine 06/15/2005 DIAGNOSIS NOT YET Results for this DEFINED procedure are i n the results section . documented in this encounter Results TSH- (06/15/2005) athologist Signature TSH 2.85 mcU/mL Specimen (Source) Anatomical Location Collection Method / Collectio n Time Received Time / Laterality Volume 06/15/2005 Ian Kendrick MD LABORATORY T4, FREE, SERUM (06/15/2005) athologist Signature T4 Free 0.97 ng/dL Specimen (Source) Anatomical Location Collection Method / Collectio n Time Received Time / Laterality Volume 06/15/2005 Ian Kendrick MD LABORATORY LDL-CHOLESTEROL (06/15/2005) P athologist Signature LDL Cholesterol 143 mg/dL Calculated Specimen (Source) Anatomical Location Collection Method / Collectio n Time Received Time / Laterality Volume 06/15/2005 Ian Kendrick MD LABORATORY CHOL/HDL RATIO (06/15/2005) athologist Signature Cholesterol/HDL 4.5 Ratio Specimen (Source) Anatomical Location Collection Method / Collectio n Time Received Time / Laterality Volume 06/15/2005 Ian Kendrick MD LABORATORY TRIGLYCERIDES (06/15/2005) athologist Signature Triglycerides 110 mg/dL Specimen (Source) Anatomical Location Collection Method / Collectio n Time Received Time / Laterality Volume 06/15/2005 Ian Kendrick MD LABORATORY (ABNORMAL) CHOLESTEROL (06/15/2005) athologist Signature Cholesterol 212 (A) 115 - 199 mg/dL Specimen (Source) Anatomical Location Collection Method / Collectio n Time Received Time / Laterality Volume 06/15/2005 Ian Kendrick MD LABORATORY HDL CHOLESTEROL (06/15/2005) athologist Signature HDL Cholesterol 47 mg/dL Specimen (Source) Anatomical Location Collection Method / Collectio n Time Received Time / Laterality Volume 06/15/2005 Ian Kendrick MD LABORATORY POTASSIUM (06/15/2005) athologist Signature Potassium 4.5 mmol/L Specimen (Source) Anatomical Location Collection Method / Collectio n Time Received Time / Laterality Volume 06/15/2005 Ian Kendrick MD LABORATORY SODIUM (06/15/2005) athologist Signature Sodium 141 mmol/L Specimen (Source) Anatomical Location Collection Method / Collectio n Time Received Time / Laterality Volume 06/15/2005 Ian Kendrick MD LABORATORY ALANINE AMINO (ALT) (SGPT) (06/15/2005) athologist Signature ALT 29 U/L Specimen (Source) Anatomical Location Collection Method / Collectio n Time Received Time / Laterality Volume 06/15/2005 Ian Kendrick MD LABORATORY AST (06/15/2005) P athologist Signature AST 20 U/L Specimen (Source) Anatomical Location Collection Method / Collectio n Time Received Time / Laterality Volume 06/15/2005 Ian Kendrick MD LABORATORY GLUCOSE (06/15/2005) P athologist Signature Glucose 112 mg/dL Specimen (Source) Anatomical Location Collection Method / Collectio n Time Received Time / Laterality Volume 06/15/2005 Ian Kendrick MD LABORATORY CREATININE (06/15/2005) P athologist Signature Creatinine 1.0 mg/dL Specimen (Source) Anatomical Location Collection Method / Collectio n Time Received Time / Laterality Volume 06/15/2005 Ian Kendrick MD LABORATORY SCANNED MISC. LAB RESULTS (06/15/2005) Specimen (Source) Anatomical Location Collection Method / Collectio n Time Received Time / Laterality Volume 06/15/2005 Narrative This result has an attachment that is no t available. Ian Kendrick MD LABORATORY documented in this encounter Visit Diagnoses Diagnosis DIAGNOSIS NOT YET DEFINED - Primary documented in this encounter Care Teams Health Tech Relationship Specialty Start Date End Date Ian Kendrick MD PCP - General 11/19/07 02/21/14 [place] [id number] [place] [address] documented as of this encounter
--- OUTSIDE RECORDS SUMMARY | 2022-05-15 22:43 | XMS_ITS | Encounter Summary ---
:1955 Author Organization [facility] Address [address] [address] Care Team Providers Name Role Phone Unavailable Primary Care Provider Unavailable Reason for Visit Procedure/Equipment (Routine) - Incomplete Specialty Diagnoses / Procedures Referred By Contact Refer red To Contact Diagnoses Acute bilateral low back pain with left-sided sciatica (HRC) Terry Tovar DO Procedures XR Lumbar Spine 2-3 Views [address] [place] [address] Referral ID Status Reason Start Date Expiration Date Visits V isits Requested Authorized [id number] Incomplete 06/29/2020 09/28/2021 1 1 Encounter Details Date Type Department Care Team Description 06/29/2020 [facility] Terry Martin Acute bilat eral back Procedure [place] [address] J, DO pain, unspecified Radiology [address] back location [address] [place], [place] [address] [address] [place], [place] [phone] [address] (Work) [phone] Social History Tobacco Use Types Packs/Day Years Used Date Smoking Tobacco: Never Assessed Sex Assigned at Date Recorded Not on file documented as of this encounter Plan of Treatment Not on filedocumented as of this encounter Procedures Procedure Name Priority Date/Time Associated Diagnosis Comme nts XR LUMBAR SPINE 2-3 Routine 06/29/2020 11:40 AM Acute bilatera l back Results for this VIEWS STATISTICAL FINANCIAL ANALYST pain, unspecified procedure are in back location the results section. documented in this encounter Results XR Lumbar Spine 2-3 Views (06/29/2020 11:40 AM STATISTICAL FINANCIAL ANALYST) Anatomical Region Laterality Modality Spine, L-Spine Digital Radiography Specimen (Source) Anatomical Collection Method Collection Time Re ceived Time Location / / Volume Laterality 06/29/2020 11:33 AM STATISTICAL FINANCIAL ANALYST Impressions 06/29/2020 12:54 PM STATISTICAL FINANCIAL ANALYST COMPARISON: ??None. FINDINGS: ??There is moderate lower [...]
--- OUTSIDE RECORDS SUMMARY | 2022-05-15 22:43 | XMS_ITS | Encounter Summary ---
:1955 Author Organization [place] Address [address] [place] [address] Care Team Providers Name Role Phone Esthela [...] you attend sabianist or Patient refused 2020 orthodox services? Do [...] on filedocumented in this encounter Care Teams Psych Assistant Relationship Specialty Start Date End Date So Dodd MD PCP - General Family Medicine 02/21/22 [address] [place] [place], [place] [id number] Esthela Corea RN Personal Advocate & Liaison Family Medicine 10/16 (PAL) So Dodd MD Assigned PCP 01/05/22 [address] [place], [place] [id number] documented as of this encounter
--- OUTSIDE RECORDS SUMMARY | 2022-05-15 22:43 | XMS_ITS | Encounter Summary ---
:1955 Author Organization [place] Address [address] [place] [address] Care Team Providers Name Role Phone Esthela [...] containing 4 or more times a w qagan tayagungin 05/25/2021 alcohol? How many drinks containing alcohol [...] you attend moravian or Patient refused 2020 scientology services? Do [...] filedocumented in this encounter Care Teams Special Inspector Relationship Specialty Start Date End Date So Dodd MD PCP - General Family Medicine 02/21/22 [address] [address] [place], [place] [id number] Esthela Corea RN Personal Advocate & Liaison Family Medicine 10/16 (PAL) So Dodd MD Assigned PCP 01/05/22 [address] [place], [place] [id number] documented as of this encounter
--- OUTSIDE RECORDS SUMMARY | 2022-05-15 22:43 | XMS_ITS | Encounter Summary ---
:1955 Author Organization [place] Address [facility]0 [place] [address] Care Team Providers Name Role Phone Esthela Corea RN Unavailable Unavailable So Dodd MD Unavailable So Dodd MD Primary Care Provider Encounter Details Date Type Department Care Team Description 04/24/2022 Anticoagulation [facility], Chronic deep vein thrombosis (DVT) of lower extremity, unspecified laterality, unspecified vein (H) (Primary Dx); Therapy Visit Anticoagulation Diana Conrad RN nursing home current use of anticoagulant therapy; Clinic Postthrombotic syndrome; [facility] Anticardiolipin antibody pos itive; [place], [place] nursing home cu rrent use of anticoagulants with INR [...] you attend bahai or Patient refused 2020 christian services? Do [...] every Wed; 7.5 mg all other days; Cbpsuxmg17/2/2022 Next INR check: 04/26/2022 Telephone call with Virgil who agrees to plan and repeated back plan correctly Lab visit scheduled Education provided: ??? Please call back if any changes to your diet, medications or how you've been taking warfarin ??? Contact [phone] with any changes, questions or concerns. Plan made per [facility] anticoagulation protocol Diana Nielsen RN Anticoagulation Clinic 04/24/2022 Anticoagulation Episode Summary Current INR goal: 2.0-3.0 TTR: 96.8 % (1 y) Target end date: Indefinite Send INR reminders to: [facility] Indications Chronic deep vein thrombosis (DVT) of lower extremity unspecified laterality unspecified vein (H) [I82.509] Long-term (current) use of anticoagulants [Z79.01] [Z79.01] 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] termite control representative current use of anticoagulants with INR goal of 2.0-3.0 [Z79.01] Comments: Anticoagulation Care Providers Provider Role Specialty Phone number DaniFroylan MD Referring Family Medicine [phone] documented in this encounter Plan of Treatment Upcoming Encounters Date Type Specialty Care Team Description 05/20/2022 Lab Lab documented as of this encounter Visit Diagnoses Diagnosis Chronic deep vein thrombosis (DVT) of lo wer extremity, unspecified laterality, unspecified vein (H) - Primary nursing home current use of anticoagulant t herapy 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
--- OUTSIDE RECORDS SUMMARY | 2022-05-15 22:43 | XMS_ITS | Encounter Summary ---
:1955 Author Organization [employer] [facility] Address [address], [place] [address] Care Team Providers Name Role Phone Unavailable Primary Care Provider Unavailable Reason for Visit Reason Comments Injection Encounter Details Date Type Department Care Team Description 07/03/2020 Telephone [facility] Jim Schneider, Injection Center - Physical Medicine & MD Rehabilitation [address] [facility] [address] [facility] [place] [address] [place], [place] [address] [phone] Social History Tobacco Use Types Packs/Day Years [...] trying to get this done sooner at [facility]. Pt will call back if he decides to cancel. Itzel Howe RN - 07/03/2020 8:44 AM CST Pt is scheduled for a lumbar BERT on 07/07/20. Pt takes Warfarin which is managed by Dr. Froylan Louise at [facility] in [place]. Explained to pt that I will reach [...] When should he stop taking the prednisone? R INSPECTOR documented in this encounter Plan of Treatment Not on filedocumented as of this encounter Visit Diagnoses Not on filedocumented in this encounter
--- OUTSIDE RECORDS SUMMARY | 2022-05-15 22:43 | XMS_ITS | Encounter Summary ---
:1955 Author Organization [place] Address [facility] [place] [address] Care Team Providers Name Role Phone Esthela Corea RN Unavailable Unavailable So Dodd MD Unavailable So Dodd MD Primary Care Provider Encounter Details Date Type Department Care Team Description 04/26/2022 Anticoagulation [facility], Chronic deep vein thrombosis (DVT) of lower extremity, unspecified laterality, unspecified vein (H) (Primary Dx); Therapy Visit Anticoagulation Shaniqua Hein RN rodent exterminator current use of anticoagulant therapy; Clinic Postthrombotic syndrome; [address] [place] [address] Anticardiolipin antibody pos itive; [place], [place] rodent exterminator cu rrent use of anticoagulants with [...] you attend alevism or Patient refused 2020 quaker services? Do [...] Indefinite Send INR reminders to: 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] longterm current use of anticoagulants with INR goal of 2.0-3.0 [Z79.01] Comments: Anticoagulation Care Providers Provider Role Specialty Phone number Froylan Louise MD Referring Family Medicine [phone] documented in this encounter Plan of Treatment Upcoming Encounters Date Type Specialty Care Team Description 05/20/2022 Lab Lab documented as of this encounter Visit Diagnoses Diagnosis Chronic deep vein thrombosis (DVT) of lo wer extremity, unspecified laterality, unspecified vein (H) - Primary rodent exterminator current use of anticoagulant t herapy Postthrombotic syndrome 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
--- OUTSIDE RECORDS SUMMARY | 2022-05-15 22:43 | XMS_ITS | Encounter Summary ---
:1955 Author Organization [place] Address [address] [place] [address] Care Team Providers Name Role Phone Esthela Corea RN Unavailable Unavailable So Dodd MD Unavailable So Dodd MD Primary Care Provider Encounter Details Date Type Department Care Team Description 04/26/2022 [facility] Pos tthrombotic syndrome; [facility] Chronic deep vein thrombosis (DVT) of lower extremity, unspecified laterality, unspecified vein (H); [address] [facility] Anticardiolipin antibody pos itive; [place] [address] termite exterminator helper current use of ant icoagulants with INR [...] you attend jewish or Patient refused 2020 yazidi services? 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 Chronic deep vein thrombosis (DVT) of lo wer extremity, unspecified laterality, unspecified vein (H) Anticardiolipin antibody positive Other and unspecified nonspecific immuno logical findings termite exterminator helper current use of anticoagulants with INR goal of 2.0-3.0 documented in this encounter Care Teams Accounts Payable Or Receivable Clerk Relationship Specialty Start Date End Date So Dodd MD PCP - General Family Medicine 02/21/22 [address] [place] [address] Esthela Corea, RN Personal Advocate & Liaison Family Medicine 10/16 (PAL) So Dodd MD Assigned PCP 01/05/22 [address] [place] [address] documented as of this encounter
--- OUTSIDE RECORDS SUMMARY | 2022-05-15 22:43 | XMS_ITS | Encounter Summary ---
:1955 Author Organization [facility] Address [address], [place] [address] Care Team Providers Name Role Phone Unavailable Primary Care Provider Unavailable Reason for Visit Reason Comments FOLLOW-UP, RETURN TO WORK Encounter Details Date Type Department Care Team Description 07/03/2020 Telephone Terry Palmer, FOLLOW -UP, RETURN TO [facility] DO WORK [address] [place], [place] [id number] [phone] Social History Tobacco Use Types Packs/Day Years Used Date Smoking Tobacco: Never Assessed Sex Assigned at Date Recorded Not on file documented as of this encounter Nursing Notes Dora Shukla RN - 07/03/2020 2:41 PM CST Order discussed in separate encounter sent to number provided below. ER MILL OPERATOR Malena Tong - 07/03/2020 2:18 PM CST Pt is requesting to also have a copy of it faxed to [phone]. plz also fax it to the previous fax number provided Wendy Carrizales - 07/03/2020 11:16 AM CST Has the patient recently had surgery or an injury? No How may we help you today? Patient would like an extension to 07/17/20 on his RTW faxed to his employer ; FAX # [phone] Describe your symptoms/concerns: Is not able to return to work until after his procedure When did the issue start: Have you been seen for this recently?: yes [Ammunition Storekeeper/Appt Center: If yes, please include date and provider.] Is it okay to leave detailed message on your voicemail? yes [Ammunition Storekeeper/Appt Center: If this call is after 3 p.m., communicate to patient: If we are not able to get back to you by the end of the day and your symptoms worsen please contact the Careline] ER MILL OPERATOR documented in this encounter Plan of Treatment Not on filedocumented as of this encounter Visit Diagnoses Not on filedocumented in this encounter
--- OUTSIDE RECORDS SUMMARY | 2022-05-15 22:43 | XMS_ITS | Encounter Summary ---
:1955 Author Organization [facility] Address [address], [place] [address] Care Team Providers Name Role Phone Unavailable Primary Care Provider Unavailable Reason for Visit Reason Comments QUESTIONS, GENERAL Encounter Details Date Type Department Care Team Description 07/03/2020 Telephone TRIA WaterproofTerry Kimbrough QUESTI ONS, GENERAL Orthopaedics & Sports DO Medicine [address] [facility] [address] [place] [address] [place] [address] [phone] Social History Tobacco Use Types Packs/Day Years Used Date Smoking Tobacco: Never Assessed Sex Assigned at Date Recorded Not on file documented as of this encounter Nursing Notes Dora Shukla RN - 07/03/2020 2:40 PM CST Order successfully faxed to [facility] at the number provided below. S INCENTIVE ANALYST Bharti Malik - 07/03/2020 2:10 PM CST Has the patient recently had surgery or an injury? No How may we help you today? Patient would like to schedule injections at [facility] as it is closer to his home. Please fax a signed order to [facility] at [phone], Attn: Mayra. Describe your symptoms/concerns: NA When did the issue start: NA Have you been seen for this recently?: NA [Oracle Database Manager/Appt Center: If yes, please include date and provider.] Is it okay to leave detailed message on your voicemail? Yes [Oracle Database Manager/Appt Center: If this call is after 3 p.m., communicate to patient: If we are not able to get back to you by the end of the day and your symptoms worsen please contact the Careline] S INCENTIVE ANALYST documented in this encounter Plan of Treatment Not on filedocumented as of this encounter Visit Diagnoses Not on filedocumented in this encounter
--- OUTSIDE RECORDS SUMMARY | 2022-05-15 22:43 | XMS_ITS | Encounter Summary ---
:1955 [facility] Organization [facility] Address [address] [place] [address] Care Team Providers Name Role Phone Unavailable Primary Care Provider Unavailable Reason for Referral Consult/Transfer Care (Routine) - Closed Specialty Diagnoses / Procedures Referred By Contact Refer red To Contact Diagnoses Acute bilateral low back pain with left-sided sciatica (HRC) [place] [address] [place] [address] Referral ID Status Reason Start Date Expiration Date Visits Requ ested Visits Authorized [id number] Closed 06/29/2020 09/28/2021 1 1 Scheduling Instructions Your provider has recommended an appoint ment with [facility]. You may call [phone] to schedule your appoi ntment. We suggest you call your health insurance company about your coverage an d benefits for this appointment. ER STAMP ASSEMBLER Procedure/Equipment (Routine) - Incomplete Specialty Diagnoses / Procedures Referred By Contact Refer red To Contact Diagnoses Acute bilateral low back pain with left-sided sciatica (HRC) Mulu Delgadillo DO Procedures [place] [id number] [place] [address] Referral ID Status Reason Start Date Expiration Date Visits V isits Requested Authorized [id number] Incomplete 06/29/2020 09/28/2021 1 1 ER STAMP ASSEMBLER Procedure/Equipment (Routine) - Incomplete Specialty Diagnoses / Procedures Referred By Contact Refer red To Contact Diagnoses Acute bilateral low back pain with left-sided sciatica (HRC) Mulu Delgadillo DO Procedures XR Lumbar Spine 2-3 Views [address] [place] [address] Referral ID Status Reason Start Date Expiration Date Visits V isits Requested Authorized [id number] Incomplete 06/29/2020 09/28/2021 1 1 ER STAMP ASSEMBLER Reason for Visit Reason Comments Back Pain WC doi: 06/29/2020 stefania: unsure . working on unever surfaces Encounter Details Date Type Department Care Team Description 06/29/2020 Office Visit [facility] Mulu Klein, Acute bilateral low Orthopedic Urgent DO back [facility] [address] [facility]-sided sciatica [address] [place], [place] (Primary Dx) [place] [address] [phone] Social History Tobacco Use Types Packs/Day Years Used Date Smoking Tobacco: Never Assessed Sex Assigned at Date Recorded Not on file documented as of this encounter Patient Instructions Patient InstructionsQuincy Lóepz, ATC - 06/29/2020 11:[address] [...] MRI Scheduling: To schedule an MRI at [facility] please call [phone] Paperwork Requests: Questions regarding FMLA or disability paperwork please call [phone] Phone lines are answered 8AM to 5PM Friday - Friday. General Scheduling: To schedule an appointment, please call [phone] [facility] [place] [facility] Nurse Line: [phone] Workers??? Compensation: Please contact our department for any Work Comp concerns at Email: [email or web address] 1. Acute bilateral low back pain with left-sided sciatica (HRC) Treatment Plan: Follow-Up: Follow up with Tayla Morales after injection. If you have any questions following your visit, please call us at [phone]. Medications: Your physician has sent a prescription for Prednisone and methocarbamol to your preferred pharmacy. Take this medication as instructed. Please be sure to review all information provided on your prescription regarding this drug and any potential side effects you may experience. Ask your pharmacist if any questions arise. Orthopedic Urgent Care Contacts: Imaging Kitchen Porter: [place] [address]. Call [phone] to schedule. Medication Requests: Prescriptions are filled on Weekdays before 3:00PM For all medication refills: Request a refill using MyChart or contact your Pharmacy Paperwork Requests: FMLA or disability paperwork can be faxed to: [employer] - [phone] Please allow 7-10 business days for completion of all paperwork. [facility] Worker's Compensation Services: E-mail Address: [email or web address] To request copies of your medical records, call: [phone] (option 4) ER STAMP ASSEMBLER documented in this encounter Progress Notes Mulu Delgadillo DO - 06/29/2020 12:00 PM CST NAME: ANITA CHRISTINE MR#: [id number] CSN: [id number] AUTHENTICATING CLINICIAN: MULU DELGADILLO DO CONFIRM #: [id number] LOC: 5311 CLINIC PROGRESS NOTE DATE OF VISIT: 06/29/2020 : 1955 CHIEF COMPLAINT: Left-sided low back pain. Date of injurywas today. 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 He also has a [place] filter in his IVC for pulmonary embolus [...] follow up with Tayla Morales here at [facility] in [employer]. He is prescribed prednisone 40 mg for 5 days, then will resume to 10 mg, methocarbamol as well as a short supply of Walls 5s. Work ability form is filled out. He feels he will be able to go back to work on Friday so it was filled out through Friday. Patient is in agreement with the plan. He will call if there are any questions or concerns. PJRhona:MEDKaty C: R:06/29/20 14:20 CONFIRM#:[id number] ER STAMP ASSEMBLER documented in this encounter Plan of Treatment Scheduled Referrals Name Type Priority Associated Diagnoses Order S chedule Orthopaedic Consult Referral Routine Acute bilateral low O rdered: 06/29/2020 Adult/Peds back pain with left-sided sciatica documented as of this encounter Results MR Lumbar Spine WO IV Cont (06/29/2020 1:24 PM RUBBER STAMP ASSEMBLER) Anatomical Region Laterality Modality Spine, L-Spine, Skeletal Magnetic Resona nce Specimen (Source) Anatomical Collection Method Collection Time Re ceived Time Location / / Volume Laterality 06/29/2020 12:49 PM RUBBER STAMP ASSEMBLER Impressions 06/29/2020 1:35 PM RUBBER STAMP ASSEMBLER INDICATION: Low back pain with radicular symptoms [...] Lumbar Spine 2-3 Views (06/29/2020 11:40 AM RUBBER STAMP ASSEMBLER) Anatomical Region Laterality Modality Spine, L-Spine Digital Radiography Specimen (Source) Anatomical Collection Method Collection Time Re ceived Time Location / / Volume Laterality 06/29/2020 11:33 AM RUBBER STAMP ASSEMBLER Impressions 06/29/2020 12:54 PM RUBBER STAMP ASSEMBLER COMPARISON: ??None. FINDINGS: ??There is moderate lower [...]
--- OUTSIDE RECORDS SUMMARY | 2022-05-15 22:43 | XMS_ITS | Encounter Summary ---
:1955 Author Organization [place] Address [facility] [place] [address] Care Team Providers Name Role Phone Nahomy, Esthela Conrad RN Unavailable Unavailable So Dodd MD Unavailable So Dodd MD Primary Care Provider Reason for Visit Reason Onset Date Comments Call Back 04/24/2022 Patient called in re questing Warfarin instructions would like a call back Encounter Details Date Type Department Care Team Description 04/24/2022 [facility] So Dodd MD Call Back (Patient [facility] [place] [address] [facility] called in requesting [address] [place], [place] [address] would like a call back) [address] Social [...] containing 4 or more times a w creek 05/25/2021 alcohol? How many drinks containing [...] you attend restorationist or Patient refused 2020 sabianist services? Do [...] be reached at: Home number on file [phone] (home) Best Time: any Can we leave a detailed message on this number? YES Call taken on 04/24/2022 at 4:10 PM by Michelle Loya documented in this encounter Plan of Treatment Upcoming Encounters Date Type Specialty Care Team Description 05/20/2022 Lab Lab documented as of this encounter Visit Diagnoses Not on filedocumented in this encounter Care Teams Instructor Wastewater Treatment Plant Relationship Specialty Start Date End Date So Dodd MD PCP - General Family Medicine 02/21/22 [address] [place] [address] Esthela Corea RN Personal Advocate & Liaison Family Medicine 10/16 (PAL) So Dodd MD Assigned PCP 01/05/22 [address] [place] [address] documented as of this encounter
--- OUTSIDE RECORDS SUMMARY | 2022-05-15 22:43 | XMS_ITS | Encounter Summary ---
:1955 Author Organization [place] Address [address] [place] [address] Care Team Providers Name Role Phone Ian Kendrick MD Primary Care Provider [phone] Reason for Referral Specialty Diagnoses / Procedures Referred By Contact Refer red To Contact Ian Kendrick And MD rufus [facility] [address] [place], [place] [address] Referral ID Status Reason Start Date Expiration Date Visits Requ ested Visits Authorized Encounter Details Date Type Department Care Team Description 07/24/2005 Orders Only [facility] Ian Kendrick DIAGNO SIS NOT YET Clinic Chhaya Daniels MD DEFINED (Primary Dx) [address] [place], [place] CLINIC [address] [facility] [phone] [place] [address] (Wo rk) Social History Tobacco Use Types Packs/Day Years Used Date Smoking Tobacco: Never Assessed Alcohol Habits Answer Date Recorded How often do you have a drink containing 4 or more times a w [place] 05/25/2021 alcohol? How many drinks containing [...] you attend congregational or Patient refused 2020 baptist services? Do [...] Date/Time Associated Diagnosis Comme nts ZZ CONSULT PULMONARY Routine 07/25/2005 DIAGNOSIS NOT YET DEFINED MEDICINE documented in this encounter Results CONSULT PULMONARY MEDICINE (07/25/2005) Narrative This result has an attachment that is no t available. Ian Kendrick MD REFERRAL documented in this encounter Visit Diagnoses Diagnosis DIAGNOSIS NOT YET DEFINED - Primary documented in this encounter Care Teams Body Maker Machine Setter Relationship Specialty Start Date End Date Ian Kendrick MD PCP - General 11/19/07 02/21/14 [place] [address] [place] [address] documented as of this encounter
--- OUTSIDE RECORDS SUMMARY | 2022-05-15 22:44 | XMS_ITS | Encounter Summary ---
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 Chronic deep vein thrombosis (DVT) of lo wer extremity, unspecified laterality, unspecified vein (H) Anticardiolipin antibody positive Other and unspecified nonspecific immuno logical findings termite control service representative current use of anticoagulants with INR goal of 2.0-3.0 documented in this encounter Care Teams Printed Circuit Board Designer Relationship Specialty Start Date End Date So Dodd MD PCP - General Family Medicine 02/21/22 [address] [place] [address] Esthela Corea RN Personal Advocate & Liaison Family Medicine 10/16 (PAL) So Dodd MD Assigned PCP 01/05/22 [address] [place] [address] documented as of this encounter
--- OUTSIDE RECORDS SUMMARY | 2022-05-15 22:44 | XMS_ITS | Encounter Summary ---
:1955 Author Organization [place] Address [address] [place] [address] Care Team Providers Name Role Phone Esthela Corea RN Unavailable Unavailable So Dodd MD Unavailable So Dodd MD Primary Care Provider Reason for Visit Reason Comments Medication Refill Encounter Details Date Type Department Care Team Description 03/01/2022 Refill [facility] Froylan Louise Ra, MD Medication Refill [address] [address] Social History Tobacco Use [...] you attend mosque or Patient refused 2020 congregation services? Do [...] type documented in this encounter Care Teams Cranberry Sorter Relationship Specialty Start Date End Date So Dodd MD PCP - General Family Medicine 02/21/22 [address] [place], [place] [id number] Esthela Corea, RN Personal Advocate & Liaison Family Medicine 10/16 (PAL) So Dodd MD Assigned PCP 01/05/22 [address] [facility] [place] [address] documented as of this encounter
--- OUTSIDE RECORDS SUMMARY | 2022-05-15 22:44 | XMS_ITS | Encounter Summary ---
:1955 Author Organization [place] Address [facility] [place] [address] Care Team Providers Name Role Phone Froylan Louise MD Primary Care Provider Unavailable Froylan Louise MD Unavailable Unavailable Esthela Corea RN Unavailable Unavailable Encounter Details Date Type Department Care Team Description 11/30/2021 Anticoagulation [facility], Chronic deep vein thrombosis (DVT) of lower extremity, unspecified laterality, unspecified vein (H) (Primary Dx); Therapy Visit Anticoagulation Diana Conrad RN [facility] current use of anticoagulant therapy; Clinic Postthrombotic syndrome; [address] [facility] Anticardiolipin antibody pos itive; [place], [place] [facility] cu rrent use of anticoagulants with INR [...] you attend temple or Patient refused 2020 muslim services? Do [...] dosing instructions and follow up date. Contact [phone] to schedule and with any changes, questions or concerns. Education provided: Please call back if any changes to your diet, medications or how you've been taking warfarin and Contact [phone] with any changes, questions or concerns. Plan made per [facility] anticoagulation protocol Diana Nielsen RN Anticoagulation Clinic 11/30/2021 Anticoagulation Episode Summary Current INR goal: 2.0-3.0 TTR: 76.6 % (11.9 mo) Target end date: Indefinite Send INR reminders to: [facility] Indications Chronic deep vein thrombosis (DVT) of lower extremity unspecified laterality unspecified vein (H) [I82.509] Long-term (current) use of anticoagulants [Z79.01] [Z79.01] 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] technician terminal and repeater current use of anticoagulants with INR goal of 2.0-3.0 [Z79.01] Comments: Anticoagulation Care Providers Provider Role Specialty Phone number Froylan Louise MD Referring Family Medicine [phone] documented in this encounter Plan of Treatment Upcoming Encounters Date Type Specialty Care Team Description 05/20/2022 Lab Lab documented as of this encounter Visit Diagnoses Diagnosis Chronic deep vein thrombosis (DVT) of lo wer extremity, unspecified laterality, unspecified vein (H) - Primary technician terminal and repeater current use of anticoagulant t herapy 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
--- OUTSIDE RECORDS SUMMARY | 2022-05-15 22:44 | XMS_ITS | Encounter Summary ---
:1955 Author Organization [place] Address [address] [place] [address] Care Team Providers Name Role Phone Esthela Corea RN Unavailable Unavailable So Dodd MD Unavailable So Dodd MD Primary Care Provider Encounter Details Date Type Department Care Team Description 02/27/2022 [facility] Pos tthrombotic syndrome; [facility] Chronic deep vein thrombosis (DVT) of lower extremity, unspecified laterality, unspecified vein (H); [address] [facility] Anticardiolipin antibody pos itive; [place] [address] [facility] current use of ant icoagulants with [...] you attend voodoo or Patient refused 2020 pentecostal services? 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 Chronic deep vein thrombosis (DVT) of lo wer extremity, unspecified laterality, unspecified vein (H) Anticardiolipin antibody positive Other and unspecified nonspecific immuno logical findings computer terminal operator current use of anticoagulants with INR goal of 2.0-3.0 documented in this encounter Care Teams Science Faculty Member Relationship Specialty Start Date End Date So Dodd MD PCP - General Family Medicine 02/21/22 [address] [place] [address] Esthela Corea, RN Personal Advocate & Liaison Family Medicine 10/16 (PAL) So Dodd MD Assigned PCP 01/05/22 [address] [place] [address] documented as of this encounter
--- OUTSIDE RECORDS SUMMARY | 2022-05-15 22:44 | XMS_ITS | Encounter Summary ---
:1955 Author Organization [place] Address [address] [place] [address] Care Team Providers Name Role Phone Esthela Corea RN Unavailable Unavailable So Dodd MD Primary Care Provider So Dodd MD Unavailable Encounter Details Date Type Department Care Team Description 01/10/2022 [facility] Pos tthrombotic syndrome; [facility] Chronic deep vein thrombosis (DVT) of lower extremity, unspecified laterality, unspecified vein (H); [address] [facility] Anticardiolipin antibody pos itive; [place] [address] [facility] current use of ant icoagulants with [...] you attend mormon or Patient refused 2020 scientology services? Do [...] Address City/State/ZIP Code [place]on [place] [address] Lab [address] [facility] Lab (no room number, 1st floor of clinic) [place] [address], [facility] [address] [facility] Lab (no room number, 1st [...] 2.0-3.0 documented in this encounter Care Teams Internal Corrosion Specialist Relationship Specialty Start Date End Date So Dodd MD PCP - General Family Medicine 01/10/22 01/17/22 [address] [place] [address] Esthela Corea, CINDY Personal Advocate & Liaison Family Medicine 10/16 (PAL) So Dodd MD Assigned PCP 01/05/22 [address] [place] [address] documented as of this encounter
--- OUTSIDE RECORDS SUMMARY | 2022-05-15 22:44 | XMS_ITS | Encounter Summary ---
:1955 Author Organization [place] Address [facility] [place] [address] Care Team Providers Name Role Phone Esthela Corea RN Unavailable Unavailable So Dodd MD Unavailable So Dodd MD Primary Care Provider Encounter Details Date Type Department Care Team Description 02/27/2022 Anticoagulation [facility], Chronic deep vein thrombosis (DVT) of lower extremity, unspecified laterality, unspecified vein (H) (Primary Dx); Therapy Visit Anticoagulation Diana Conrad RN moth exterminator current use of anticoagulant therapy; Clinic Postthrombotic syndrome; [address] [place] [address] Anticardiolipin antibody pos itive; [place], [place] moth exterminator cu rrent use of anticoagulants with [...] you attend taoist or Patient refused 2020 buddhism services? Do [...] Next INR check: 04/12/2022 Telephone call with Virgil who verbalizes understanding [...] procedures 2 weeks in advance and Contact [phone] with any changes, questions or concerns. Plan made per [facility] anticoagulation protocol Diana Nielsen RN Anticoagulation Clinic 02/27/2022 Anticoagulation Episode Summary Current INR goal: 2.0-3.0 TTR: 88.7 % (1 y) Target end date: Indefinite Send INR reminders to: [facility] Indications Chronic deep vein thrombosis (DVT) of lower extremity unspecified laterality unspecified vein (H) [I82.509] Long-term (current) use of anticoagulants [Z79.01] [Z79.01] 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] moth exterminator current use of anticoagulants with INR goal of 2.0-3.0 [Z79.01] Comments: Anticoagulation Care Providers Provider Role Specialty Phone number Froylan Louise MD Referring Family Medicine [phone] documented in this encounter Plan of Treatment Upcoming Encounters Date Type Specialty Care Team Description 05/20/2022 Lab Lab documented as of this encounter Visit Diagnoses Diagnosis Chronic deep vein thrombosis (DVT) of lo wer extremity, unspecified laterality, unspecified vein (H) - Primary retirement current use of anticoagulant t herapy Postthrombotic syndrome 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
--- OUTSIDE RECORDS SUMMARY | 2022-05-15 22:44 | XMS_ITS | Encounter Summary ---
:1955 Author Organization [place] Address [address] [place] [address] Care Team Providers Name Role Phone Nahomy, Esthela Conrad RN Unavailable Unavailable Froylan Louise MD Primary Care Provider Unavailable So Dodd MD Unavailable So Dodd MD Primary Care Provider Reason for Visit Reason Comments Medication Refill Encounter Details Date Type Department Care Team Description 02/18/2022 Refill [facility] Froylan Louise Ra, MD Medication Refill [address] [address] Social History Tobacco [...] you attend moravian or Patient refused 2020 protestant services? Do [...] asthma documented in this encounter Care Teams County Court Judge Relationship Specialty Start Date End Date Froylan Louise MD PCP - General Family Medicine 01/18/22 So Dodd MD PCP - General Family Medicine 02/21/22 [address] [place], [place] [address] Esthela Corea RN Personal Advocate & Liaison Family Medicine 10/16 (PAL) So Dodd MD Assigned PCP 01/05/22 [address] [place], [place] [address] documented as of this encounter
--- OUTSIDE RECORDS SUMMARY | 2022-05-15 22:44 | XMS_ITS | Encounter Summary ---
:1955 Author Organization [place] Address [address] [place] [address] Care Team Providers Name Role Phone Esthela [...] you attend restoration or Patient refused 2020 druze services? Do [...] on filedocumented in this encounter Care Teams Wood Sawyer Relationship Specialty Start Date End Date So Dodd MD PCP - General Family Medicine 02/21/22 [address] [address] [place], [place] [address] Esthela Corea RN Personal Advocate & Liaison Family Medicine 10/16 (PAL) So Dodd MD Assigned PCP 01/05/22 [address] [place], [place] [address] documented as of this encounter
--- OUTSIDE RECORDS SUMMARY | 2022-05-15 22:44 | XMS_ITS | Encounter Summary ---
:1955 Author Organization [place] Address [address] [place] [address] Care Team Providers Name Role Phone Froylan Louise MD Primary Care Provider Unavailable Froylan Louise MD Unavailable Unavailable Esthela Corea RN Unavailable Unavailable Reason for Visit Reason Comments Medication Refill Encounter Details Date Type Department Care Team Description 11/15/2021 Refill [facility] Froylan Luoise Ra, MD Medication Refill [address] [address] Social History Tobacco Use [...] you attend restorationism or Patient refused 2020 episcopal services? Do [...] 11/16/2021 2:55 PM CDT Prescription approved per [facility] Refill Protocol. Esthela Corea RN documented in this encounter Plan of Treatment Upcoming Encounters Date Type Specialty Care Team Description 05/20/2022 Lab Lab documented as of this encounter Visit Diagnoses Diagnosis Acute deep vein thrombosis (DVT) of prox imal vein of both lower extremities (H) H/O ulcerative colitis Personal history of other diseases of di gestive system documented in this encounter Care Teams Cookee Relationship Specialty Start Date End Date Froylan Louise MD PCP - General Family Practice 02/22/14 Froylan Louise MD Assigned PCP 03/13/14 2 Esthela Corea, RN Personal Advocate & Liaison Family Medicine 10/16 (PAL) documented as of this encounter
--- OUTSIDE RECORDS SUMMARY | 2022-05-15 22:44 | XMS_ITS | Encounter Summary ---
:1955 Author Organization [place] Address [address] [place] [address] Care Team Providers Name Role Phone Esthela [...] you attend mandaen or Patient refused 2020 confucianism services? Do [...] on filedocumented in this encounter Care Teams Clerk Stenographer Relationship Specialty Start Date End Date So Dodd MD PCP - General Family Medicine 02/21/22 [address] [place], [place] [id number] Esthela Corea RN Personal Advocate & Liaison Family Medicine 10/16 (PAL) So Dodd MD Assigned PCP 01/05/22 [address] [place], [place] [id number] documented as of this encounter
--- OUTSIDE RECORDS SUMMARY | 2022-05-15 22:44 | XMS_ITS | Encounter Summary ---
:1955 Author Organization [place] Address [facility] [place] [address] Care Team Providers Name Role Phone Esthela Corea RN Unavailable Unavailable So Dodd MD Unavailable So Dodd MD Primary Care Provider Encounter Details Date Type Department Care Team Description 02/21/2022 Anticoagulation [facility], Chronic deep vein thrombosis (DVT) of lower extremity, unspecified laterality, unspecified vein (H) (Primary Dx); Therapy Visit Anticoagulation Diana Conrad RN dedicated intermodal truck driver current use of anticoagulant therapy; Clinic Postthrombotic syndrome; [address] [place] [address] Anticardiolipin antibody pos itive; [place], [place] dedicated intermodal truck driver cu rrent use of [...] you attend denominational or Patient refused 2020 yarsanism services? Do [...] for bleeding signs and symptoms and Contact [phone] with any changes, questions or concerns. 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] nursing home current use of anticoagulants with INR goal of 2.0-3.0 [Z79.01] Comments: Anticoagulation Care Providers Provider Role Specialty Phone number Froylan Louise MD Referring Family Medicine [phone] documented in this encounter Plan of Treatment [...] Other and unspecified nonspecific immuno logical findings nursing home current use of anticoagulants with INR goal of 2.0-3.0 documented in this encounter Care Teams Jail Guard Relationship Specialty Start Date End Date oS Dodd MD PCP - General Family Medicine 02/21/22 [address] [place] [address] Esthela Corea RN Personal Advocate & Liaison Family Medicine 10/16 (PAL) So Dodd MD Assigned PCP 01/05/22 [address] [place] [address] documented as of this encounter
--- OUTSIDE RECORDS SUMMARY | 2022-05-15 22:44 | XMS_ITS | Encounter Summary ---
:1955 Author Organization [place] Address [address] [place] [address] Care Team Providers Name Role Phone Esthela Corea RN Unavailable Unavailable So Dodd MD Unavailable So Dodd MD Primary Care Provider Encounter Details Date Type Department Care Team Description 02/21/2022 [facility] Pos tthrombotic syndrome; [facility] Chronic deep vein thrombosis (DVT) of lower extremity, unspecified laterality, unspecified vein (H); [address] [facility] Anticardiolipin antibody pos itive; [place] [address] correction current use of ant icoagulants with INR [...] attend jehovah's witness or Patient refused 2020 yazidism services? 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 Chronic deep vein thrombosis (DVT) of lo wer extremity, unspecified laterality, unspecified vein (H) Anticardiolipin antibody positive Other and unspecified nonspecific immuno logical findings tank terminal gauger current use of anticoagulants with INR goal of 2.0-3.0 documented in this encounter Care Teams Recreational Programs Director Relationship Specialty Start Date End Date So Dodd MD PCP - General Family Medicine 02/21/22 [address] [place] [address] Esthela Corea RN Personal Advocate & Liaison Family Medicine 10/16 (PAL) So Dodd MD Assigned PCP 01/05/22 [address] [place] [address] documented as of this encounter
--- OUTSIDE RECORDS SUMMARY | 2022-05-15 22:44 | XMS_ITS | Encounter Summary ---
:1955 Author Organization [place] Address [address] [place] [address] Care Team Providers Name Role Phone Froylan Louise MD Primary Care Provider Unavailable Froylan Louise MD Unavailable Unavailable Esthela Corae RN Unavailable Unavailable Encounter Details Date Type Department Care Team Description 12/03/2021 Telephone [facility] Froylan Louise Ra, MD [place] [address] [place] [address] Social History Tobacco [...] you attend muslim or Patient refused 2020 religion services? Do [...] Primary documented in this encounter Care Teams Black Leather Trimmer Relationship Specialty Start Date End Date Froylan Louise MD PCP - General Family Practice 02/22/14 Froylan Louise MD Assigned PCP 03/13/14 2 Esthela Corea RN Personal Advocate & Liaison Family Medicine 10/16 (PAL) documented as of this encounter
--- OUTSIDE RECORDS SUMMARY | 2022-05-15 22:44 | XMS_ITS | Encounter Summary ---
:1955 Author Organization [place] Address [address] [place] [address] Care Team Providers Name Role Phone Froylan Louise MD Primary Care Provider Unavailable Froylan Louise MD Unavailable Unavailable Esthela Corae RN Unavailable Unavailable Encounter Details Date Type Department Care Team Description 11/30/2021 Lab [facility] Pos tthrombotic syndrome; [place] Chronic deep vein thrombosis (DVT) of lower extremity, unspecified laterality, unspecified vein (H); [address] [facility] Anticardiolipin antibody pos itive; [place] [address] [facility] current use of ant icoagulants with INR [...] you attend anabaptist or Patient refused 2020 spiritism services? 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
--- OUTSIDE RECORDS SUMMARY | 2022-05-15 22:44 | XMS_ITS | Encounter Summary ---
:1955 Author Organization [place] Address [facility] [place] [address] Care Team Providers Name Role Phone Nahomy, Esthela Conrad RN Unavailable Unavailable So Vigil MD Unavailable So Vigil MD Primary Care Provider Reason for Visit Reason Comments Pre-Op Exam Encounter Details Date Type Department Care Team Description 04/08/2022 Office Visit [facility] So Vigil MD Pre-op evaluation; [facility] [address] [facility] Anal stenosis; [address] [place], [place] Mild persistent asthma witho ut complication; [place] [address] Chronic deep vein thrombosis (DVT) of lo [...] you attend zoroastrian or Patient refused 2020 uatsdin services? Do [...] AM) Pre-Operative Physical with So Vigil MD [facility] [address] [facility] [address] Appointment Notes for this encounter: dilation of anal stenosis - requires 3 day warfarin hold Questionnaires Reviewed/Assigned PHQ 2 Patient preferred phone number: [phone] Contacted patient via phone . Are there [...] oil-omega-3 fatty acids 1000 MG capsule ??? Vwrxwyarkxm-Cihpthcal-Mzypjkksek (TRELEGY ELLIPTA) 100-62.5-25 MCG/INH oral inhaler ??? [...] No current facility-administered medications for this visit. ARKeX Patient is active on ARKeX. Call Summary Advised patient to call back at [phone] if needed. Esthela Corea RN So Vigil MD - 04/08/2022 9:30 AM CDT [address] [address] Primary Provider: So Vigil Pre-op Performing Provider: SO VIGIL {Provider Link to PREOP SmartSet Use this to apply standard patient instructions to AVS; includes medication directions, common orders, guidelines for anemia, warfarin, additional testing :[id number]} PREOPERATIVE EVALUATION: Today's date: 04/08/2022 Virgil Christine is a 66 year old male who presents for a preoperative evaluation Undergoing colonoscopy for anal stenosis . Surgical Information: Surgery/Procedure: Colonoscopy Surgery Location: [facility] Surgeon: Dr. Suazo Surgery Date: 04/19/2022 Time of Surgery: Where patient plans to recover: At home with family Fax number for surgical facility:[phone] Type of Anesthesia Anticipated: General Assessment & [...] Problem List Diagnosis Date Noted ??? Health Fdc 07/16/2011 Priority: High EMERGENCY CARE PLAN Presenting Problem Signs and Symptoms Treatment Plan Questions or conerns during clinic hours I will call the clinic directly Questions or conerns outside clinic hours I will call the 24 hour nurse line at [phone] Patient needs to schedule an appointment I will call the 24 hour scheduling team at [phone] orclinic directly Same day treatment I will call the clinic first, nurse line if after hours, urgent care and expresscare if needed DX V65.8 REPLACED WITH [address] [facility] (09/28/2012) ??? Morbid obesity (H) 02/21/2022 Priority: Medium ??? Essential hypertension 11/30/2021 Priority: Medium ??? FDC current use of anticoagulants with INR [...] 06/20/2017 Procedure: POUCHOSCOPY; POUCHOSCOPY ; Surgeon: Chase Sauzo MD; Location: [facility] ??? POUCHOSCOPY N/A [...] dyspnea or wheezing 18 g 3 ??? Tsytlwxwsyg-Kwanqgczx-Zmdurosfij (TRELEGY ELLIPTA) 100-62.5-25 MCG/INH oral inhaler INHALE [...] 9:30 AM CDT Preop faxed ,Cheryl Garrett/ Real Estate Underwriter . documented in this encounter Miscellaneous Notes [...] Total. Bili, TP) (04/08/2022 10:09 AM CDT) [facility] Method Time Signature Sodium 138 133 - [...] and gender (Kaylen et al., NEJM, DOI: [id number]/[id number]) Specimen Anatomical Collection Method / Collection Time Recei lindy Time (Source) Location / Volume Laterality Blood BLOOD SPECIMEN / Venipuncture / 04/08/2022 10:09 04/08 Unknown Unknown AM CDT 10:10 AM CDT So Vigil MD LAB - BLOOD ORDERABLES Performing Organization Address City/State/ZIP Code Phon e Number [facility] Clinic - [place], [place] [phone] [facility] Lab [address] Lab (no room number, 1st floor of clinic) [place] LABORATORY [place], [place] [phone] [facility] [address] [place] [facility] [address] Lab (no room number, 1st floor [...] Address City/State/ZIP Code [place] [address] Lab [address] [facility] Lab (no room number, 1st floor of clinic) [place] [address], [facility] [address] Lab (no room number, 1st floor of clinic) documented in this encounter Visit Diagnoses Diagnosis Pre-op evaluation Preoperative examination, unspecified Anal stenosis Stenosis of rectum and anus Mild persistent asthma without complicat ion Unspecified asthma Chronic deep vein thrombosis (DVT) of lo wer extremity, unspecified laterality, unspecified vein (H) Insomnia, unspecified type documented in this encounter Care Teams Press Smith Helper Relationship Specialty Start Date End Date So Vigil MD PCP - General Family Medicine 02/21/22 [address] [place] [address] Esthela Corea RN Personal Advocate & Liaison Family Medicine 10/16 (PAL) So Vigil MD Assigned PCP 01/05/22 [address] [place] [address] documented as of this encounter
--- OUTSIDE RECORDS SUMMARY | 2022-05-15 22:44 | XMS_ITS | Encounter Summary ---
:1955 Author Organization [place] Address [facility] [address] Care Team Providers Name Role Phone aNhomy, Esthela Conrad RN Unavailable Unavailable So Dodd MD Unavailable So Dodd MD Primary Care Provider Reason for Visit Reason Onset Date Comments Patient Request 03/27/2022 Requesting to speak with CINDY Proctor Anticoagulation 03/27/2022 Warfarin Hold plan f or procedure 04/19/22 Encounter Details Date Type Department Care Team Description 03/27/2022 [facility] So Dodd MD Patient Request Clinic [address] (Requesting to speak with [address] [place] [address] CINDY Proctor); [place] [address] Anticoagulation (Warfarin [address] Hold plan for procedure [...] you attend mandaen or Patient refused 2020 quaker services? Do [...] 1:51 PM CDT Spoke with Claire from [facility]. Confirmed that longer than 3-day hold is required. Okay with 4-day warfarin hold. Karie FinnD, BCPS Telephone Encounter - Susanna Albright RPH - 04/08/2022 12:39 PM CDT [place]-PROCEDURAL [...] referring provider for approval ? Susanna Albright [facility] SUBJECTIVE/OBJECTIVE Virigl Colvin Emmett, a 66 year old male [...] (263 lb) 11/30/21 109.8 kg (242 lb) [place] body weight: 77.6 kg (171 lb 1.2 [...] scheduled for 04/12/22. Patient had inquired with dancing instructorEsthela, if he should cancel his lab. 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
--- OUTSIDE RECORDS SUMMARY | 2022-05-15 22:44 | XMS_ITS | Encounter Summary ---
:1955 Author Organization [place] Address [address] [place] [address] Care Team Providers Name Role Phone Froylan [...] containing 4 or more times a w wrangell 05/25/2021 alcohol? How many drinks containing alcohol [...] you attend worship or Patient refused 2020 adventist services? Do [...] on filedocumented in this encounter Care Teams Entry Level Marketing Representative Relationship Specialty Start Date End Date Froylan Louise MD PCP - General Family Practice 02/22/14 Froylan Louise MD Assigned PCP 03/13/14 2 Esthela Corea, RN Personal Advocate & Liaison Family Medicine 10/16 (PAL) documented as of this encounter
--- OUTSIDE RECORDS SUMMARY | 2022-05-15 22:44 | XMS_ITS | Encounter Summary ---
:1955 Author Organization [place] Address [address] [place] [address] Care Team Providers Name Role Phone Esthela [...] on filedocumented in this encounter Care Teams Iron Installer Relationship Specialty Start Date End Date So Dodd MD PCP - General Family Medicine 01/10/22 01/17/22 [address] [place] [address] Esthela Corea RN Personal Advocate & Liaison Family Medicine 10/16 (PAL) So Dodd MD Assigned PCP 01/05/22 [address] [place] [place], [place] [phone] documented as of this encounter
--- OUTSIDE RECORDS SUMMARY | 2022-05-15 22:44 | XMS_ITS | Encounter Summary ---
:1955 Author Organization [place] Address [address] [place] [address] Care Team Providers Name Role Phone Froylan Louise MD Primary Care Provider Unavailable Esthela Corea RN Unavailable Unavailable So Dodd MD Unavailable Reason for Visit Reason Onset Date Comments Referral 01/08/2022 Encounter Details Date Type Department Care Team Description 01/08/2022 [facility] Froylan Louise Ra, MD Referral [address] [address] Social History Tobacco Use [...] you attend taoism or Patient refused 2020 jehovah's witness services? [...] will allow him to move into the [employer] system. At this time he wanted to [...] injection. Last injection was 07/11/20. Vianney Berman, Mental Health Social Worker documented in this encounter Plan of Treatment Upcoming Encounters Date Type Specialty Care Team Description 05/20/2022 Lab Lab documented as of this encounter Visit Diagnoses Not on filedocumented in this encounter Care Teams Campground Manager Relationship Specialty Start Date End Date Froylan Louise MD PCP - General Family Practice 02/22/14 Esthela Corea RN Personal Advocate & Liaison Family Medicine 10/16 (PAL) So Dodd MD Assigned PCP 01/05/22 [address] [place], [place] [id number] documented as of this encounter
--- OUTSIDE RECORDS SUMMARY | 2022-05-15 22:44 | XMS_ITS | Encounter Summary ---
:1955 Author Organization [place] Address [facility] [place] [address] Care Team Providers Name Role Phone Esthela Corea RN Unavailable Unavailable So Dodd MD Primary Care Provider So Dodd MD Unavailable Encounter Details Date Type Department Care Team Description 01/10/2022 Anticoagulation [facility], Chronic deep vein thrombosis (DVT) of lower extremity, unspecified laterality, unspecified vein (H) (Primary Dx); Therapy Visit Anticoagulation Diana Conrad RN terminologist current use of anticoagulant therapy; Clinic Postthrombotic syndrome; [address] [place] [address] Anticardiolipin antibody pos itive; [place], [place] terminologist cu rrent use of anticoagulants with INR [...] attend roman catholic or Patient refused 2020 sikhism services? Do [...] worsening. He just saw Dr. Lees at [facility] today who plans a spinal injection. ??? Medication/supplement changes: None noted ??? Signs or symptoms of bleeding or clotting: No ??? Previous INR: Therapeutic last 2(+) visits ??? Additional findings: States he is going with Dr. Dodd for his PCP. This abstract writer notified Virgil that it has been almost [...] how you've been taking warfarin and Contact [phone] with any changes, questions or concerns. Plan made per [facility] anticoagulation protocol Diana Nielsen RN Anticoagulation Clinic 01/10/2022 Anticoagulation Episode Summary Current INR goal: 2.0-3.0 TTR: 80.2 % (11.9 mo) Target end date: Indefinite Send INR reminders to: [facility] Indications Chronic deep vein thrombosis (DVT) of lower extremity unspecified laterality unspecified vein (H) [I82.509] Long-term (current) use of anticoagulants [Z79.01] [Z79.01] 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] prison current use of anticoagulants with INR goal of 2.0-3.0 [Z79.01] Comments: Anticoagulation Care Providers Provider Role Specialty Phone number Froylan Louise MD Referring Family Medicine [phone] documented in this encounter Plan of Treatment Upcoming Encounters Date Type Specialty Care Team Description 05/20/2022 Lab Lab documented as of this encounter Visit Diagnoses Diagnosis Chronic deep vein thrombosis (DVT) of lo wer extremity, unspecified laterality, unspecified vein (H) - Primary terminologist current use of anticoagulant t herapy Postthrombotic syndrome 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
--- OUTSIDE RECORDS SUMMARY | 2022-05-15 22:44 | XMS_ITS | Encounter Summary ---
:1955 Author Organization [place] Address [facility] [place] [address] Care Team Providers Name Role Phone Froylan Louise MD Primary Care Provider Unavailable Froylan Louise MD Unavailable Unavailable Esthela Corea RN Unavailable Unavailable Reason for Visit Diagnostic Imaging XR (Routine) - Pending Review Specialty Diagnoses / Procedures Referred By Contact Refer red To Contact Diagnoses Neck pain Froylan Louise MD Procedures XR Cervical Spine 2/[id number] [place] [address] Referral ID Status Reason Start Date Expiration Date Visits V isits Requested Authorized [id number] Pending 11/30/2021 11/30/2022 1 1 Review Encounter Details Date Type Department Care Team Description 11/30/2021 Ancillary Procedure M [facility] Froylan Louise Ra, [facility] [address] [place] [address] Social History Tobacco Use Types [...] you attend scientologist or Patient refused 2020 synagogue services? Do [...] mouth view. MIKE LARA MD SYSTEM ID: ??[id number] Procedure Note Mike Lara MD - 11/30/2021Format ting of this note might be different from the original. XR CERVICAL SPINE 2/3 VWS 11/30/2021 3:49 PM COMPARISON: None HISTORY: Chronic neck pain. FINDINGS: Normal vertebral body heights. Straightened lordosis. Normal coronal alignment. Moderate C4-5 and C5- 6 interbody degeneration. Mild mid cervical facet arthropathy. Normal o pen mouth view. MIKE LARA MD SYSTEM ID: [id number] Froylan Louise MD IMG DIAGNOSTIC IMAGING ORDER SADIQ documented in this encounter Visit Diagnoses Not on filedocumented in this encounter Care Teams Maintenance Mechanic Engine Relationship Specialty Start Date End Date Froylan Louise MD PCP - General Family Practice 02/22/14 Froylan Louise MD Assigned PCP 03/13/14 2 Esthela Corea RN Personal Advocate & Liaison Family Medicine 10/16 (PAL) documented as of this encounter
--- OUTSIDE RECORDS SUMMARY | 2022-05-15 22:44 | XMS_ITS | Encounter Summary ---
:1955 Author Organization [place] Address [address] [place] [address] Care Team Providers Name Role Phone Froylan Louise MD Primary Care Provider Unavailable Froylan Louise MD Unavailable Unavailable Esthela Corea RN Unavailable Unavailable Reason for Visit Reason Comments Medication Refill Encounter Details Date Type Department Care Team Description 12/18/2021 Refill [facility] Froylan Louise Ra, MD Medication Refill [address] [address] Social History Tobacco Use [...] you attend yarsanism or Patient refused 2020 episcopal services? Do [...] type documented in this encounter Care Teams Degreasing Solution Reclaimer Relationship Specialty Start Date End Date Froylan Louise MD PCP - General Family Practice 02/22/14 Froylan Louise MD Assigned PCP 03/13/14 2 Esthela Corea RN Personal Advocate & Liaison Family Medicine 10/16 (PAL) documented as of this encounter
--- OUTSIDE RECORDS SUMMARY | 2022-05-15 22:44 | XMS_ITS | Encounter Summary ---
:1955 Author Organization [place] Address [facility] [place] [address] Care Team Providers Name Role Phone Nahomy, Esthela Conrad RN Unavailable Unavailable So Dodd MD Unavailable So Dodd MD Primary Care Provider Reason for Visit Reason Comments Establish Care Was a Dr. Louise pt. Encounter Details Date Type Department Care Team Description 02/21/2022 Office Visit [facility] So Dodd MD Acute deep vein thrombosis (DVT) of prox imal vein of both lower extremities (H); Clinic [address] custodial current use of anticoagulants with INR goal of 2.0-3.0; [address] [place], [place] Morbid obesity (H); [place] [address] Benign prostatic hyperplasia with lower urinary tract symptoms, symptom details unspecified; [address] Benign essential hypertensio n; H/O ulcerative colitis; [phone] Moderate persis tent asthma, uncomplicated; (Fax) Dental [...] attend roman catholic or Patient refused 2020 christian services? [...] Body Mass Index 35.67 05/25/2021 3:14 PM FREIGHT HUSTLER documented in this encounter Progress Notes Esthela Corea RN - 02/21/2022 4:00 PM CDT Pre-Visit Planning Next 5 appointments (look out 90 days) Feb 21, 2022 4:00 PM (Arrive by 3:40 PM) Provider Visit with So Dodd MD [facility] ([facility] ) [address] [facility] [address] Appointment Notes for this encounter: est care ?SB3 Questionnaires Reviewed/Assigned PHQ 2 and ACT Patient preferred phone number: [phone] Unable to reach. Left voicemail. Advised patient to call clinic back at [phone] X 2 Esthela Corea RN . So Dodd MD - 02/21/2022 4:00 PM CDT Assessment & Plan Acute deep vein thrombosis (DVT) of proximal vein of both lower extremities (H) With positive anticardiolipin antibodies will continue to closely monitor . - warfarin ANTICOAGULANT (COUMADIN) 7.5 MG tablet; Take 1 tab 6 times a week as directed custodial current use of anticoagulants with INR [...] add Singulair for symptom improvement . - Jwzvlgmtnew-Ifnwgkbtd-Wwqkrupnci (TRELEGY ELLIPTA) 100-62.5-25 MCG/INH oral inhaler; INHALE [...] up, patient will call. 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
--- OUTSIDE RECORDS SUMMARY | 2022-05-15 22:44 | XMS_ITS | Encounter Summary ---
:1955 Author Organization [place] Address [facility] [place] [address] Care Team Providers Name Role Phone Dhruv Louise MD Primary Care Provider Unavailable Dhruv Louise MD Unavailable Unavailable Esthela Corea RN Unavailable Unavailable Reason for Referral Diagnostic Imaging XR (Routine) - Pending Review Specialty Diagnoses / Procedures Referred By Contact Refer red To Contact Diagnoses Neck pain Dhruv Louise MD Procedures XR Cervical Spine 2/3 Views [address] [place] [address] Referral ID Status Reason Start Date Expiration Date Visits V isits Requested Authorized [id number] Pending 11/30/2021 11/30/2022 1 1 Review Reason for Visit Reason Comments Recheck Medication Encounter Details Date Type Department Care Team Description 11/30/2021 Office Visit [facility] Dhruv Louise eep vein thrombosis (DVT) of lower extremity, unspecified laterality, unspecified vein (H) (Primary Dx); Clinic Chhaya Dubose MD Anal fistula; [address] [facility] S/P colectomy; [place], [place] Neck pain; [address] H/O ulcerative colitis; [phone] Mild persistent asthma without complication; Other ulcerativ [...] you attend pentecostalism or Patient refused 2020 episcopalian services? Do [...] Body Mass Index 32.82 05/25/2021 3:14 PM IMPORT EXPORT CLERK documented in this encounter Progress Notes Page, Esthela Conrad RN - 11/30/2021 3:30 PM CDT Pre-Visit Planning Next 5 appointments (look out 90 days) Nov 30, 2021 (Arrive by 3:10 PM) Provider Visit with Dhruv Louise MD [facility] ([facility] ) [address] [facility] [address] Appointment Notes for this encounter: med [...] oil-omega-3 fatty acids 1000 MG capsule ??? Llxstlzwjmq-Etnelnfxj-Zpsltgihoa (TRELEGY ELLIPTA) 100-62.5-25 MCG/INH oral inhaler ??? lisinopril-hydrochlorothiazide (ZESTORETIC) 20-25 MG tablet ??? loperamide (IMODIUM) 2 MG capsule ??? multivitamin w/minerals (THERA-VIT-M) tablet ??? terazosin (HYTRIN) 5 MG capsule ??? triamcinolone (KENALOG) 0.1 % external cream ??? vitamin D3 (CHOLECALCIFEROL) 250 mcg (00440 units) capsule ??? Vitamin Mixture (EMILY-C PO) ??? warfarin ANTICOAGULANT (COUMADIN) 5 MG tablet ??? warfarin ANTICOAGULANT (COUMADIN) 7.5 MG tablet ??? zolpidem ER (AMBIEN CR) 12.5 MG CR tablet No current facility-administered medications for this visit. [employer] Patient is active on [employer]. Call Summary Advised patient to call back at [phone] if needed. Esthela Corea RN Dhruv Louise [...] No follow-ups on file. [facility] 65 year [facility] who [...] mouth view. MIKE LARA MD SYSTEM ID: [id number] Procedure Note Mike Lara MD - 11/30/2021Format ting of this note might be different from the original. XR CERVICAL SPINE 2/3 VWS 11/30/2021 3:49 PM COMPARISON: None HISTORY: Chronic neck pain. FINDINGS: Normal vertebral body heights. Straightened lordosis. Normal coronal alignment. Moderate C4-5 and C5- 6 interbody degeneration. Mild mid cervical facet arthropathy. Normal o pen mouth view. MIKE LARA MD SYSTEM ID: [id number] Dhruv Louise MD IMG DIAGNOSTIC IMAGING ORDER [...] Anatomical Collection Method / Collection Time Recei ilndy Time (Source) Location / Volume Laterality Blood BLOOD SPECIMEN / Venipuncture / 11/30/2021 3:48 2021 3:48 Unknown Unknown PM CDT PM CDT Dhruv Louise MD LAB - BLOOD ORDERABLES Performing Organization Address City/State/ZIP Code Phon e Number [facility] [place], [place] [phone] [facility] [phone] [place] [address] Lab (no room number, 1st floor of clinic) [facility] [place], [place] [phone] [facility] [phone] [address] Lab (no room number, 1st floor [...] City/State/ZIP Code Phon e Number [facility] [place], [place] [phone] [facility] [phone] Lab (no room number, 1st floor of clinic) [facility] [place], [place] [phone] [facility] [address], [facility] [address] Lab (no room number, 1st floor of clinic) (ABNORMAL) Comprehensive metabolic panel (BMP + Alb, Alk Phos, ALT, AST, Total. Bili, TP) (11/30/2021 3:48 PM CDT) [facility] Method Time Signature Sodium 138 133 [...] equation which includ es age and gender (Kaylne et al., NEJ, DOI: 10.1056/TFAChq9209944) Specimen Anatomical Collection Method / Collection Time Recei lindy Time (Source) Location / Volume Laterality Blood BLOOD SPECIMEN / Venipuncture / 11/30/2021 3:48 2021 3:48 Unknown Unknown PM CDT PM CDT Dhruv Louise MD LAB - BLOOD ORDERABLES Performing Organization Address City/State/ZIP Code Phon e Number [facility] [place], [place] [phone] [facility] [phone] [place] [address] Lab (no room number, 1st floor of clinic) [facility] [place], [place] [phone] [place] [id number] [address] [place] [address] Lab (no room number, 1st floor of clinic) (ABNORMAL) CBC with platelets (11/30/2021 3:48 PM CDT) [facility] Method Time Signature WBC Count 5.4 [...] City/State/ZIP Code Phon e Number [place] [address] Lab [address] [facility] Lab (no room number, 1st floor of clinic) [place] [address], [facility] [address] [facility] Lab (no room number, 1st [...] type documented in this encounter Care Teams Head Tennis Coach Relationship Specialty Start Date End Date Dhruv Louise MD PCP - General Family Practice 02/22/14 Dhruv Louise MD Assigned PCP 03/13/14 2 Esthela Corea, RN Personal Advocate & Liaison Family Medicine 10/16 (PAL) documented as of this encounter
--- OUTSIDE RECORDS SUMMARY | 2022-05-15 22:44 | XMS_ITS | Encounter Summary ---
:1955 Author Organization [place] Address [address] [place] [address]. [place] [address] Care Team Providers Name Role Phone Esthela Corea RN Unavailable Unavailable oS Dodd MD Unavailable So Dodd MD Primary Care Provider Reason for Visit Reason Onset Date Comments Call Back 04/12/2022 Encounter Details Date Type Department Care Team Description 04/12/2022 Telephone [facility] Jayde Dodd MD Call Back [place] [id number] [place] [id number] [place] [address] [place] [address] [phone] Social History Tobacco Use Types Packs/Day Years Used Date Smoking Tobacco: Former Cigarettes 2 25 Quit : 08/04/2006 Smokeless Tobacco: Never Comments: 2004 Alcohol Use Standard Drinks/Week Comments Yes 0 (1 standard drink = 0.6 oz pure alcoho l) 4 BEERS A day Alcohol Habits Answer Date Recorded How often do you have a drink containing 4 or more times a w [place] 05/25/2021 alcohol? How many drinks containing alcohol [...] you attend yazdanism or Patient refused 2020 orthodoxy services? 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 Encouraged patient to review i[employer] message sent on 04/10/22 as a reference. [...] Phone Number Patient can be reached at: [phone] Best Time: Anytime Can we leave a detailed message on this number? Yes, cam leave instructions over voicemail. Call taken on 04/12/2022 at 4:02 PM by Gary Mcgee documented in this encounter Plan of Treatment Upcoming Encounters Date Type Specialty Care Team Description 05/20/2022 Lab Lab documented as of this encounter Visit Diagnoses Not on filedocumented in this encounter Care Teams Program Manager Transportation Relationship Specialty Start Date End Date So Dodd MD PCP - General Family Medicine 02/21/22 [address] [place] [address] Esthela Corea, CIDNY Personal Advocate & Liaison Family Medicine 10/16 (PAL) So Dodd MD Assigned PCP 01/05/22 [address] [place], [place] [id number] documented as of this encounter
--- OUTSIDE RECORDS SUMMARY | 2022-05-15 22:44 | XMS_ITS | Encounter Summary ---
:1955 Author Organization [place] Address [address] [place] [address] Care Team Providers Name Role Phone Nahomy, Esthela Conrad RN Unavailable Unavailable Froylan Louise MD Primary Care Provider Unavailable So Dodd MD Unavailable So Dodd MD Primary Care Provider Reason for Visit Reason Comments Medication Refill Encounter Details Date Type Department Care Team Description 02/15/2022 Refill [facility] Froylan Louise Ra, MD Medication Refill [address] [address] Social History Tobacco Use [...] you attend adventist or Patient refused 2020 hoahaoism services? Do [...] 02/15/2022 2:50 PM CDT Prescription approved per [facility] Refill Protocol. Esthela Corea RN documented in this encounter Plan of Treatment Upcoming Encounters Date Type Specialty Care Team Description 05/20/2022 Lab Lab documented as of this encounter Visit Diagnoses Diagnosis Mild persistent asthma, uncomplicated Unspecified asthma documented in this encounter Care Teams Contact Center Professional Relationship Specialty Start Date End Date Froylan Louise MD PCP - General Family Medicine 01/18/22 So Dodd MD PCP - General [facility] Medicine 02/21/22 [address] [place] [address] Esthela Corea RN Personal Advocate & Liaison Family Medicine 10/16 (PAL) So Dodd MD Assigned PCP 01/05/22 [address] [place] [address] documented as of this encounter
--- OUTSIDE RECORDS SUMMARY | 2022-05-15 22:44 | XMS_ITS | Encounter Summary ---
:1955 Author Organization [place] Address [address] [place] [address] Care Team Providers Name Role Phone Esthela [...] you attend methodist or Patient refused 2020 voodoo services? Do [...] on filedocumented in this encounter Care Teams Undercar Specialist Relationship Specialty Start Date End Date So Dodd MD PCP - General Family Medicine 02/21/22 [address] [place] [place], [place] [phone] Esthela Corea RN Personal Advocate & Liaison Family Medicine 10/16 (PAL) So Dodd MD Assigned PCP 01/05/22 [address] [place], [place] [id number] documented as of this encounter
--- OUTSIDE RECORDS SUMMARY | 2022-05-15 22:45 | XMS_ITS | Encounter Summary ---
:1955 Author Organization [place] Address [facility] [place] [address] Care Team Providers Name Role Phone Froylan Louise MD Primary Care Provider Unavailable Froylan Louise MD Unavailable Unavailable Esthela Corea RN Unavailable Unavailable Reason for Visit Reason Comments Physical Encounter Details Date Type Department Care Team Description 05/25/2021 Office Visit [facility] Froylan Louise g eneral medical examination at a health care facility (Primary Dx); Clinic Chhaya Dubose MD Benign essential hypertensio n; [address] [facility] Benign prostatic hyperplasia with lower urinary tract symptoms, symptom details unspecified; [place], [place] Essential hype rtension; [id number] Postthrombotic syndrome; [phone] Chronic deep ve in thrombosis (DVT) of [...] you attend gnosticist or Patient refused 2020 mandaen services? Do [...] with No / Unsure 05/25/2021 2:49 PM LIVESTOCK TRADER someone who was confirmed or suspected to have Coronavirus / COVID-19? documented as of this encounter Last Filed Vital Signs Vital Sign Reading Time Taken Comments Blood Pressure 126/76 05/25/2021 3:14 PM LIVESTOCK TRADER Pulse 59 05/25/2021 3:14 PM LIVESTOCK TRADER Temperature 36.3 ??C (97.4 ??F) 05/25/2021 3:14 PM LIVESTOCK TRADER Respiratory Rate 18 05/25/2021 3:14 PM LIVESTOCK TRADER Oxygen Saturation 99% 05/25/2021 3:14 PM LIVESTOCK TRADER Inhaled Oxygen Concentration - - Weight 117 kg (258 lb) 05/25/2021 3:14 PM LIVESTOCK TRADER Height 182.9 cm (6') 05/25/2021 3:14 PM LIVESTOCK TRADER Body Mass Index 34.99 05/25/2021 3:14 PM LIVESTOCK TRADER documented in this encounter Patient Instructions Patient InstructionsAmee Wei CMA - 05/25/2021 3:20 PM CST Increase terazosin to 5 mg daily STOCK TRADER documented in this encounter Progress Notes Esthela Corea RN - 05/25/2021 3:20 PM CST Pre-Visit Planning Next 5 appointments (look out 90 days) May 25, 2021 3:20 PM (Arrive by 2:55 PM) Adult Preventative Visit with Froylan Louise MD [facility] ([facility] ) [address] [facility] [address] Appointment Notes for this encounter: PX Questionnaires Reviewed/AssignedNeeds ACT Unable to reach. Left voicemail. Advised patient to call clinic back at [phone] Esthela Corea RN . STOCK TRADER Froylan Louise MD - 05/25/2021 3:20 PM [...] on terazosin. Today's PHQ-2 Score: PHQ-2 (??1998 [facility]) 05/25/2021 Q1: Little interest or pleasure in [...] Final Comment: Assay Method: Chemiluminescence using Siemens Balmorhea analyzer Reviewed orders with patient. Reviewed health [...] collect 14. Moderate persistent asthma, uncomplicated J45.40 Nhyvpcevhcp-Oohbkzfzo-Vuetzirpdg (TRELEGY ELLIPTA) 100-62.5-25 MCG/INH oral inhaler 15. [...] Prophylaxis Lung CA Screening Froylan Louise MD [facility] STOCK TRADER documented in this encounter Plan of Treatment Upcoming Encounters Date Type Specialty Care Team Description 05/20/2022 Lab Lab documented as of this encounter Procedures Procedure Name Priority Date/Time Associated Diagnosis Comme nts HEMOGLOBIN A1C Routine 05/25/2021 7:59 Essential hypertension Results for this PM LIVESTOCK TRADER procedure are i n the results section. URINE MACROSCOPIC Routine 05/25/2021 4:40 Night sweats Results for this WITH REFLEX TO MICRO PM LIVESTOCK TRADER procedu re are in the results section. PROSTATE SPECIFIC Routine 05/25/2021 4:36 Screening for prosta te Results for this ANTIGEN SCREEN PM LIVESTOCK TRADER cancer procedure are in the results section. LIPID REFLEX TO Routine 05/25/2021 4:36 Hyperlipidemia LDL Res ults for this DIRECT LDL PANEL PM LIVESTOCK TRADER goal <130 procedure a re in the results section. COMPREHENSIVE Routine 05/25/2021 4:36 Night sweats Results for this METABOLIC PANEL PM LIVESTOCK TRADER procedure ar e in the results section. CBC WITH PLATELETS Routine 05/25/2021 4:36 Night sweats Result s for this PM LIVESTOCK TRADER procedure are i n the results section. CRP INFLAMMATION Routine 05/25/2021 4:27 Night sweats Results for this PM LIVESTOCK TRADER procedure are i n the results section. documented in this encounter Results (ABNORMAL) Hemoglobin A1c (05/25/2021 7:59 PM LIVESTOCK TRADER) [facility] Signature Hemoglobin A1C 5.8 (H) 0.0 - 5.6 05/25/2021 [facility] % 8:33 PM LIVESTOCK TRADER Comment: Normal <5.7% Prediabetes 5.7-6.4% ?? Diabetes 6.5% or higher Note: Adopted from ADA consensus guideli yoseph. Specimen Anatomical Collection Method / Collection Time Recei lindy Time (Source) Location / Volume Laterality Blood STRUCTURE OF RIGHT Venipuncture / 05/25/2021 7:59 12/0 08/2020 7:59 UPPER LIMB / Unknown PM LIVESTOCK TRADER PM LIVESTOCK TRADER Unknown Froylan Louise MD LAB - BLOOD ORDERABLES Performing Organization Address City/State/ZIP Code [place] [address] Lab [address] [facility] Lab (no room number, 1st floor of clinic) [place] [address], [phone] [facility] [address] [facility] Lab (no room number, 1st floor of clinic) UA reflex to Microscopic - lab collect (05/25/2021 4:40 PM LIVESTOCK TRADER) [facility] gist Method Time Signature Color Urine Yellow Colorless, 05/25/2021 LABORATORY Straw, Light 4:46 PM LIVESTOCK TRADER Yellow, Yellow Appearance Urine Clear Clear 05/25/2021 [facility] Y 4:46 PM LIVESTOCK TRADER Glucose Urine Negative Negative 05/25/2021 LABORATORY mg/dL 4:46 PM LIVESTOCK TRADER Bilirubin Urine Negative Negative 05/25/2021 [facility] 4:46 PM LIVESTOCK TRADER Ketones Urine Negative Negative 05/25/2021 LABORATORY mg/dL 4:46 PM LIVESTOCK TRADER Specific Nicasio >=1.030 1.003 - 05/25/2021 [facility] Y Urine 1.035 4:46 PM LIVESTOCK TRADER Blood Urine Negative Negative 05/25/2021 [facility] 4:46 PM LIVESTOCK TRADER pH Urine 5.0 5.0 - 7.0 05/25/2021 [facility] 4:46 PM LIVESTOCK TRADER Protein Albumin Negative Negative 05/25/2021 LABORATORY Urine mg/dL 4:46 PM LIVESTOCK TRADER Urobilinogen 0.2 0.2, 1.0 05/25/2021 LABORATORY Urine E.U./dL 4:46 PM LIVESTOCK TRADER Nitrite Urine Negative Negative 05/25/2021 [facility] 4:46 PM LIVESTOCK TRADER Leukocyte Negative Negative 05/25/2021 LABORATORY Esterase Urine 4:46 PM LIVESTOCK TRADER Specimen Anatomical Collection Method Collection Time Receive d Time (Source) Location / / Volume Laterality Urine URINE SPECIMEN Non-blood 05/25/2021 4:40 PM 021 4:40 OBTAINED BY CLEAN Collection / LIVESTOCK TRADER PM LIVESTOCK TRADER CATCH PROCEDURE / Unknown Unknown Narrative [facility] - 05/25/2021 4:46 PM LIVESTOCK TRADER Microscopic not indicated Froylan Louise MD LAB - URINE ORDERABLES Performing Organization Address City/State/ZIP Code [place] [address] Lab [address] [facility] Lab (no room number, 1st floor of clinic) [place] [address], [phone] [facility] [address] [facility] Lab (no room number, 1st floor of clinic) Lipid panel reflex to direct LDL Non-fasting (05/25/2021 4:36 PM LIVESTOCK TRADER) [facility] gist Method Time Signature Cholesterol 175 <200 mg/dL 06/06/2021 [facility] 11:30 AM LIVESTOCK TRADER Triglycerides 135 <150 mg/dL 06/06/2021 [facility] 11:30 AM LIVESTOCK TRADER Direct Measure HDL 53 >=40 mg/dL 06/06/2021 [facility] 11:30 AM LIVESTOCK TRADER LDL Cholesterol 95 <=100 06/06/2021 [facility] Y Calculated mg/dL 11:30 AM LIVESTOCK TRADER Non HDL 122 <130 mg/dL 06/06/2021 [facility] Cholesterol 11:30 AM LIVESTOCK TRADER Patient Fasting > No 06/06/2021 [facility] RY 8hrs? 11:30 AM LIVESTOCK TRADER Specimen Anatomical Collection Method / Collection Time Recei lindy Time (Source) Location / Volume Laterality Blood STRUCTURE OF RIGHT Venipuncture / 05/25/2021 4:36 12/08/2020 4:36 UPPER LIMB / Unknown PM LIVESTOCK TRADER PM LIVESTOCK TRADER Unknown Narrative [facility] - 06/06/2021 11:30 AM LIVESTOCK TRADER Cholesterol Desirable: ??<200 mg/dL Triglycerides Normal: ??Less [...] LAB - BLOOD ORDERABLES Performing Organization Address [facility] Phon [place] [address] [place], [place] [phone] [facility] [address] [place] [facility] [address] Lab (no room number, 1st floor of clinic) SJO LABORATORY [place], [place] [address] [phone] PSA, screen (05/25/2021 4:36 PM LIVESTOCK TRADER) P athologist Signature Prostate 0.26 0.00 - 05/27/2021 [facility] Specific 4.00 ug/L 9:32 AM LIVESTOCK TRADER Antigen Screen Specimen Anatomical Collection Method / Collection Time Recei lindy Time (Source) Location / Volume Laterality Blood STRUCTURE OF RIGHT Venipuncture / 05/25/2021 4:36 12/0 08/2020 4:36 UPPER LIMB / Unknown PM LIVESTOCK TRADER PM LIVESTOCK TRADER Unknown Froylan Louise MD LAB - BLOOD ORDERABLES Performing Organization Address City/State/ZIP Code Phon e Number OX LABORATORY [facility] [place], [place] [phone] [place] [facility] [address] Lab (no room number, 1st floor of clinic) OX LABORATORY [place], [place] [phone] [facility] [place] [address], [facility] [place] [facility] [address] Lab (no room number, 1st floor of clinic) (ABNORMAL) CBC with platelets (05/25/2021 4:36 PM LIVESTOCK TRADER) [facility] gist Method Time Signature WBC Count 7.3 4.0 - 11.0 05/25/2021 [facility] 10e3/uL 4:53 PM LIVESTOCK TRADER RBC Count 4.25 (L) 4.40 - 05/25/2021 [facility] 5.90 4:53 PM LIVESTOCK TRADER 10e6/uL Hemoglobin 12.8 (L) 13.3 - 05/25/2021 [facility] 17.7 g/dL 4:53 PM LIVESTOCK TRADER Hematocrit 39.8 (L) 40.0 - 05/25/2021 [facility] 53.0 % 4:53 PM LIVESTOCK TRADER MCV 94 78 - 100 05/25/2021 [facility] fL 4:53 PM LIVESTOCK TRADER MCH 30.1 26.5 - 05/25/2021 [facility] 33.0 pg 4:53 PM LIVESTOCK TRADER MCHC 32.2 31.5 - 05/25/2021 [facility] 36.5 g/dL 4:53 PM LIVESTOCK TRADER RDW 14.1 10.0 - 05/25/2021 [facility] 15.0 % 4:53 PM LIVESTOCK TRADER Platelet Count 198 150 - 450 05/25/2021 [facility] 10e3/uL 4:53 PM LIVESTOCK TRADER Specimen Anatomical Collection Method / Collection Time Recei lindy Time (Source) Location / Volume Laterality Blood STRUCTURE OF RIGHT Venipuncture / 05/25/2021 4:36 12/0 08/2020 4:37 UPPER LIMB / Unknown PM LIVESTOCK TRADER PM LIVESTOCK TRADER Unknown Froylan Louise MD LAB - BLOOD ORDERABLES Performing Organization Address City/State/ZIP Code Phon e Number [facility] [place] [address] Lab [address] [facility] Lab (no room number, 1st floor of clinic) [place] [address], [phone] [facility] [address] [facility] Lab (no room number, 1st floor of [facility]) (ABNORMAL) Comprehensive metabolic panel (BMP + Alb, Alk Phos, ALT, AST, Total. Bili, TP) (05/25/2021 4:36 PM LIVESTOCK TRADER) [facility] Method Time Signature Sodium 137 133 - 144 05/27/2021 [facility] mmol/L 9:29 AM LIVESTOCK TRADER Potassium 4.1 3.4 - 5.3 05/27/2021 [facility] mmol/L 9:29 AM LIVESTOCK TRADER Chloride 105 94 - 109 05/27/2021 [facility] mmol/L 9:29 AM LIVESTOCK TRADER Carbon Dioxide 28 20 - 32 05/27/2021 [facility] (CO2) mmol/L 9:29 AM LIVESTOCK TRADER Anion Gap 4 3 - 14 05/27/2021 [facility] mmol/L 9:29 AM LIVESTOCK TRADER Urea Nitrogen 28 7 - 30 05/27/2021 [facility] mg/dL 9:29 AM LIVESTOCK TRADER Creatinine 0.95 0.66 - 05/27/2021 [facility] 1.25 mg/dL 9:29 AM LIVESTOCK TRADER Calcium 8.6 8.5 - 10.1 05/27/2021 [facility] mg/dL 9:29 AM LIVESTOCK TRADER Glucose 106 (H) 70 - 99 05/27/2021 [facility] mg/dL 9:29 AM LIVESTOCK TRADER Alkaline 76 40 - 150 05/27/2021 [facility] Phosphatase U/L 9:29 AM LIVESTOCK TRADER AST 16 0 - 45 U/L 05/27/2021 [facility] 9:29 AM LIVESTOCK TRADER ALT 32 0 - 70 U/L 05/27/2021 [facility] 9:29 AM LIVESTOCK TRADER Protein Total 7.3 6.8 - 8.8 05/27/2021 [facility] g/dL 9:29 AM LIVESTOCK TRADER Albumin 3.3 (L) 3.4 - 5.0 05/27/2021 [facility] g/dL 9:29 AM LIVESTOCK TRADER Bilirubin Total 0.9 0.2 - 1.3 05/27/2021 [facility] mg/dL 9:29 AM LIVESTOCK TRADER GFR Estimate 85 >60 05/27/2021 [facility] mL/min/1.7 9:29 AM LIVESTOCK TRADER 3m2 Comment: As of December 31, 2020, [...] 08/2020 4:36 UPPER LIMB / Unknown PM LIVESTOCK TRADER PM LIVESTOCK TRADER Unknown Froylan Louise MD LAB - BLOOD ORDERABLES Performing Organization Address City/[facility] Phon e Number OX LABORATORY [place], [place] [phone] [place] [facility] [address] [place] [address] Lab (no room number, 1st floor of clinic) OX LABORATORY [place], [place] [phone] [place] [facility] [address] Lab (no room number, 1st floor of clinic) (ABNORMAL) CRP, inflammation (05/25/2021 4:27 PM LIVESTOCK TRADER) Patholo gist Method Time Signature CRP Inflammation 35.0 (H) 0.0 - 8.0 05/26/2021 [facility] Y mg/L 5:23 PM LIVESTOCK TRADER Specimen Anatomical Collection Method / Collection Time Recei lindy Time (Source) Location / Volume Laterality Blood STRUCTURE OF RIGHT Venipuncture / 05/25/2021 4:27 08/2020 4:36 UPPER LIMB / Unknown PM LIVESTOCK TRADER PM LIVESTOCK TRADER Unknown Froylan Louise MD LAB - BLOOD ORDERABLES Performing Organization Address City/State/ZIP Code Phon e Number [facility] [place] [address] [phone] Lab [address] [facility], Room 3-580 documented in this encounter [...] influenza documented in this encounter Care Teams Life Sciences Teacher Relationship Specialty Start Date End Date Froylan Louise MD PCP - General Family Practice 02/22/14 Froylan Louise MD Assigned PCP 03/13/14 2 Esthela Corea, RN Personal Advocate & Liaison Family Medicine 10/16 (PAL) documented as of this encounter
--- OUTSIDE RECORDS SUMMARY | 2022-05-15 22:45 | XMS_ITS | Encounter Summary ---
:1955 Author Organization [place] Address [address] [place] [address] Care Team Providers Name Role Phone Froylan Louise MD Primary Care Provider Unavailable Froylan Louise MD Unavailable Unavailable Esthela Corea RN Unavailable Unavailable Encounter Details Date Type Department Care Team Description 10/23/2021 Lab [facility] Pos tthrombotic syndrome; [place] [facility] Chronic deep vein thrombosis (DVT) of lower extremity, unspecified laterality, unspecified vein (H); [address] [facility] Anticardiolipin antibody pos itive; [place] [address] [facility] current use of ant icoagulants with [...] you attend rastafari or Patient refused 2020 muslim services? 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
--- OUTSIDE RECORDS SUMMARY | 2022-05-15 22:45 | XMS_ITS | Encounter Summary ---
:1955 Author Organization [place] Address [address] [place] [address] Care Team Providers Name Role Phone Froylan [...] you attend lutheran or Patient refused 2020 orthodoxy services? Do [...] with No / Unsure 08/01/2021 3:39 PM TECHNOLOGY APPLICATIONS TEACHER someone who was confirmed or suspected to have Coronavirus / COVID-19? documented as of this encounter Plan of Treatment Upcoming Encounters Date Type Specialty Care Team Description 05/20/2022 Lab Lab documented as of this encounter Visit Diagnoses Not on filedocumented in this encounter Care Teams Back Sewer Relationship Specialty Start Date End Date Froylan Louise MD PCP - General Family Practice 02/22/14 Froylan Louise MD Assigned PCP 03/13/14 2 Esthela Corea, RN Personal Advocate & Liaison Family Medicine 10/16 (PAL) documented as of this encounter
--- OUTSIDE RECORDS SUMMARY | 2022-05-15 22:45 | XMS_ITS | Encounter Summary ---
:1955 Author Organization [place] Address [facility] [place] [address] Care Team Providers Name Role Phone Froylan Louise MD Primary Care Provider Unavailable Froylan Louise MD Unavailable Unavailable Esthela Corea RN Unavailable Unavailable Reason for Referral Specialty Diagnoses / Procedures Referred By Contact Refer red To Contact Froylan Louise [place] [address] [place] [address] Referral ID Status Reason Start Date Expiration Date Visits Requ ested Visits Authorized Reason for Visit Reason Onset Date Comments Referral 09/25/2021 Anticoag Renewal Encounter Details Date Type Department Care Team Description 09/25/2021 [facility] Froylan Louise Refe rral (Anticoag Clinic [place] Renewal) [address] [place] [address] Social History Tobacco Use Types [...] you attend uatsdin or Patient refused 2020 buddhist services? Do [...] without risk factors Current duration of therapy Indefinite/buttermaker continuous churn therapy Time in Therapeutic Range (TTR) (Goal [...] completed unspecified vein (H) Anticardiolipin antibody positive [facility] current use of anticoagulants with INR goal of 2.0-3.0 Scheduled Referrals Name Type Priority Associated Diagnoses Order S chedule Anticoagulation Clinic Referral Routine: Next Postthrombotic Or dered: Referral available opening syndrome 09/25/2021 Chronic deep vein thrombosis (DVT) of lower extremity, unspecified laterality, unspecified vein (H) Anticardiolipin antibody positiv e medical terminologist current use of anticoagulants with INR goal of 2.0-3.0 documented as of this encounter Results (ABNORMAL) INR point of care (05/10/2022 12:31 PM SOFTWARE TOOLS ENGINEER) P athologist Signature INR 4.2 (H) 0.9 - 1.1 05/10/2022 [facility] 12:37 PM SOFTWARE TOOLS ENGINEER Specimen Anatomical Collection Method Collection Time Receive d Time (Source) Location / / Volume Laterality Blood STRUCTURE OF Capillary / 05/10/2022 12:31 05/10/2022 FINGER OF RIGHT Unknown PM SOFTWARE TOOLS ENGINEER 12:32 PM SOFTWARE TOOLS ENGINEER HAND / Unknown Narrative [facility] - 05/10/2022 12:37 PM SOFTWARE TOOLS ENGINEER This test is intended for monitoring Cou madin therapy. Results are not accurate in patients with prolonged INR due to facto r deficiency. Froylan Louise MD LAB - BLOOD ORDERABLES Performing Organization Address City/[facility]/ZIP Code Phon [place] [address] Lab [address] [place] Lab (no room number, 1st floor of clinic) [place] [address], [phone] [facility] [address] [place] Lab (no room number, 1st floor of [...] LAB - BLOOD ORDERABLES Performing Organization Address City/[facility]/ZIP Code Phon [place] [address] Lab [address] [employer] Lab (no room number, 1st floor of clinic) [place] [address], [phone] [facility] [address] [facility] Lab (no room number, 1st [...] LAB - BLOOD ORDERABLES Performing Organization Address [facility]/ZIP Code Phon [place] [address] Lab [address] [facility] Lab (no room number, 1st floor of clinic) [place] [address], [facility] [address] [facility] Lab (no room number, 1st [...] LAB - BLOOD ORDERABLES Performing Organization Address City/[facility]/ZIP Code Phon [place] [address] Lab [address] [facility] Lab (no room number, 1st floor of clinic) [place] [address], [facility] [address] [facility] Lab (no room number, 1st floor of [facility]) (ABNORMAL) INR point of care (02/21/2022 3:31 [...] Address City/State/ZIP Code Phon [place] [address] Hospital (no room number, 1st floor of clinic) [place] [address], [facility] [address] [facility] Lab (no room number, 1st [...] LAB - BLOOD ORDERABLES Performing Organization Address [facility] Phon [place] [address] Lab [address] [facility] Lab (no room number, 1st floor of [facility]) [place] [address], [phone] [facility] [address] [facility] Lab (no room number, 1st floor of [facility]) (ABNORMAL) INR point of care (11/30/2021 2:59 [...] LAB - BLOOD ORDERABLES Performing Organization Address [facility] Phon [place] [address] Lab [address] [facility] Lab (no room number, 1st floor of [facility]) [place] [address], [phone] [facility] [address] [facility] Lab (no room number, 1st [...] Address City/State/ZIP Code Phon [place] [address] Lab [address] [facility] Lab (no room number, 1st floor of clinic) [place] [address], [facility] [address] [facility] Lab (no room number, 1st floor of clinic) documented in this encounter Visit Diagnoses Diagnosis medical terminologist current use of anticoagulants with INR goal of 2.0-3.0 - Primary Postthrombotic syndrome Postphlebetic syndrome without complicat ions Chronic deep vein thrombosis (DVT) of lo wer extremity, unspecified laterality, unspecified vein (H) Anticardiolipin antibody positive Other and unspecified nonspecific immuno logical findings penitentiary current use of anticoagulant t herapy documented in this encounter Care Teams Tv Host Relationship Specialty Start Date End Date Froylan Louise MD PCP - General Family Practice 02/22/14 Froylan Louise MD Assigned PCP 03/13/14 2 Esthela Corea RN Personal Advocate & Liaison Family Medicine 10/16 (PAL) documented as of this encounter
--- OUTSIDE RECORDS SUMMARY | 2022-05-15 22:45 | XMS_ITS | Encounter Summary ---
:1955 Author Organization [place] Address [address] [place] [address] Care Team Providers Name Role Phone Froylan Louise MD Primary Care Provider Unavailable Froylan Louise MD Unavailable Unavailable Esthela Corea RN Unavailable Unavailable Encounter Details Date Type Department Care Team Description 05/25/2021 [facility] Chr onic deep vein thrombosis (DVT) of lower extremity, unspecified laterality, unspecified vein (H); [facility] current use of ant icoagulant therapy [address] [place] [address] Social History Tobacco [...] you attend catholic or Patient refused 2020 latter day services? [...] with No / Unsure 05/25/2021 2:49 PM HOT MILL OPERATOR someone who was confirmed or suspected to have Coronavirus / COVID-19? documented as of this encounter Plan of Treatment Upcoming Encounters Date Type Specialty Care Team Description 05/20/2022 Lab Lab documented as of this encounter Procedures Procedure Name Priority Date/Time Associated Diagnosis Comme nts INR POINT OF CARE Routine 05/25/2021 4:28 PM Chronic deep vein Results for this HOT MILL OPERATOR thrombosis (DVT) of procedur e are in lower extremity, the results unspecified section. laterality, unspecified vein (H) [facility] current use of anticoagulant therapy documented in this encounter Results (ABNORMAL) INR point of care (05/25/2021 4:28 PM HOT MILL OPERATOR) P athologist Signature INR 2.4 (H) 0.9 - 1.1 05/25/2021 [facility] 4:35 PM HOT MILL OPERATOR Specimen Anatomical Collection Method Collection Time Receive d Time (Source) Location / / Volume Laterality Blood CAPILLARY BLOOD / Capillary / 05/25/2021 4:28 PM 1208/2020 4:28 Unknown Unknown HOT MILL OPERATOR PM HOT MILL OPERATOR Narrative [facility] - 05/25/2021 4:35 PM HOT MILL OPERATOR This test is intended for monitoring Cou madin therapy. Results are not accurate in patients with prolonged INR due to facto r deficiency. Froylan Louise MD LAB - BLOOD ORDERABLES Performing Organization Address City/State/ZIP Code Ph[place] [address] Lab [address] [facility] Lab (no room number, 1st floor of clinic) [place] [address], [facility] [address] [facility] Lab (no room number, 1st floor of clinic) documented in this encounter Visit Diagnoses Diagnosis Chronic deep vein thrombosis (DVT) of lo wer extremity, unspecified laterality, unspecified vein (H) [facility] current use of anticoagulant t herapy documented in this encounter Care Teams Operations Technician Relationship Specialty Start Date End Date Froylan Louise MD PCP - General Family Practice 02/22/14 Froylan Louise MD Assigned PCP 03/13/14 2 Esthela Corea RN Personal Advocate & Liaison Family Medicine 10/16 (PAL) documented as of this encounter
--- OUTSIDE RECORDS SUMMARY | 2022-05-15 22:45 | XMS_ITS | Encounter Summary ---
:1955 Author Organization [place] Address [address] [place] [address] Care Team Providers Name Role Phone Froylan Louise MD Primary Care Provider Unavailable Froylan Louise MD Unavailable Unavailable Esthela Corea RN Unavailable Unavailable Reason for Visit Reason Comments Medication Refill Encounter Details Date Type Department Care Team Description 05/23/2021 Refill [facility] Froylan Louise Ra, MD Medication Refill [address] [address] Social History Tobacco Use [...] you attend samaritan or Patient refused 2020 judaism services? Do [...] with No / Unsure 05/07/2021 3:18 PM HOSPITAL PERSONNEL DIRECTOR someone who was confirmed or suspected to have Coronavirus / COVID-19? documented as of this encounter Miscellaneous Notes Telephone Encounter - Daysi Randhawa RN - 05/24/2021 3:29 PM CST Has appointment tomorrow. Provider to refill medications at that time. Daysi Randhawa RN ITAL PERSONNEL DIRECTOR documented in this encounter Plan of Treatment Upcoming Encounters Date Type Specialty Care Team Description 05/20/2022 Lab Lab documented as of this encounter Visit Diagnoses Diagnosis Benign prostatic hyperplasia with lower urinary tract symptoms, symptom details unspecified Insomnia, unspecified type H/O ulcerative colitis Personal history of other diseases of di gestive system documented in this encounter Care Teams Channel Business Manager Relationship Specialty Start Date End Date Froylan Louise MD PCP - General Family Practice 02/22/14 Froylan Louise MD Assigned PCP 03/13/14 2 Esthela Corea RN Personal Advocate & Liaison Family Medicine 10/16 (PAL) documented as of this encounter
--- OUTSIDE RECORDS SUMMARY | 2022-05-15 22:45 | XMS_ITS | Encounter Summary ---
:1955 Author Organization [place] Address [address] [place] [address]. [place] [address] Care Team Providers Name Role Phone Froylan Louise MD Primary Care Provider Unavailable Froylan Louise MD Unavailable Unavailable Esthela Corea RN Unavailable Unavailable Encounter Details Date Type Department Care Team Description 06/28/2021 Anticoagulation [facility], Chronic deep vein thrombosis (DVT) of lower extremity, unspecified laterality, unspecified vein (H) (Primary Dx); Therapy Visit Anticoagulation Diana Conrad RN buttermaker helper current use of anticoagulant therapy Clinic [address] [place] [address] Social History Tobacco Use Types [...] you attend baptist or Patient refused 2020 nondenominational services? Do [...] with No / Unsure 06/28/2021 11:11 AM ASSISTANT DIRECTOR OF NURSING someone who was confirmed or suspected to [...] other concerns per chart review. If, after air tester, no changes or concerns, next INR in 4 weeks and keep up with green veggies. Left vm to return call to [facility] RN. Anticoagulation clinic to follow up Diana Nielsen RN STANT DIRECTOR OF NURSING Diana Nielsen RN - 06/28/2021 1:13 PM [...] procedures 2 weeks in advance and Contact [phone] with any changes, questions orconcerns. Plan made per [facility] anticoagulation protocol Diana Nielsen, CINDY Anticoagulation Clinic 06/28/2021 Anticoagulation Episode Summary Current INR goal: 2.0-3.0 TTR: 59.1 % (11.8 mo) Target end date: Indefinite Send INR reminders to: [facility] Indications Chronic deep vein thrombosis (DVT) of lower extremity unspecified laterality unspecified vein (H) [I82.509] Long-term (current) use of anticoagulants [Z79.01] [Z79.01] Comments: Anticoagulation Care Providers Provider Role Specialty Phone number Froylan Louise MD Referring Family Medicine [phone] STANT DIRECTOR OF NURSING documented in this encounter Plan of Treatment Upcoming Encounters Date Type Specialty Care Team Description 05/20/2022 Lab Lab documented as of this encounter Visit Diagnoses Diagnosis Chronic deep vein thrombosis (DVT) of lo wer extremity, unspecified laterality, unspecified vein (H) - Primary buttermaker helper current use of anticoagulant t herapy documented in this encounter Care Teams Branch Employment Coordinator Relationship Specialty Start Date End Date Froylan Louise MD PCP - General Family Practice 02/22/14 Froylan Louise MD Assigned PCP 03/13/14 2 Esthela Corea RN Personal Advocate & Liaison Family Medicine 10/16 (PAL) documented as of this encounter
--- OUTSIDE RECORDS SUMMARY | 2022-05-15 22:45 | XMS_ITS | Encounter Summary ---
:1955 Author Organization [place] Address [address] [place] [address] Care Team Providers Name Role Phone Froylan [...] more times a w [place] 05/25/2021 alcohol? How many drinks containing alcohol [...] you attend pentecostal or Patient refused 2020 samaritan services? Do [...] with No / Unsure 06/28/2021 11:11 AM SALES FLOOR TEAM MEMBER someone who was confirmed or suspected to have Coronavirus / COVID-19? documented as of this encounter Plan of Treatment Upcoming Encounters Date Type Specialty Care Team Description 05/20/2022 Lab Lab documented as of this encounter Visit Diagnoses Not on filedocumented in this encounter Care Teams Demurrage Clerk Relationship Specialty Start Date End Date Froylan Louise MD PCP - General Family Practice 02/22/14 Froylan Louise MD Assigned PCP 03/13/14 2 Esthela Corea, RN Personal Advocate & Liaison Family Medicine 10/16 (PAL) documented as of this encounter
--- OUTSIDE RECORDS SUMMARY | 2022-05-15 22:45 | XMS_ITS | Encounter Summary ---
:1955 Author Organization [place] Address [facility] [place] [address] Care Team Providers Name Role Phone Froylan [...] Left [address] [place] [address] Referral ID Status Reason Start Date Expiration Date Visits V isits Requested Authorized [id number] Pending 09/27/2021 09/27/2022 1 1 Review Reason for Visit Reason Comments Musculoskeletal Problem left zacarias, fell on stairs , 1 week Dental Pain back tooth , infection Encounter Details Date Type Department Care Team Description 09/27/2021 Office Visit [facility] Shani Chase Leg inj ury, left, initial encounter (Primary Dx); Urgent Care Valentina Conrad NP Dental infection; [address] [address] [address] Cellulitis of left lower extremity; [place], [place] Hematoma of l eft lower leg [address] [phone] Social History Tobacco Use Types Packs/Day Years [...] you attend adventist or Patient refused 2020 confucianist services? Do [...] Body Mass Index 32.82 05/25/2021 3:14 PM TEXTILE WORKER documented in this encounter Patient Instructions Patient [...] reviewed this educational content on 09/21/2017 ?? [phone] [employer]. All rights reserved. This information is not [...] he can hardly sleep. Relevant [facility] of [facility] for knee infection, ulcer last year needing [...] Take 2 g by mouth every morning Kaoritagkvp-Ngppcagov-Ujthfsxqga (TRELEGY ELLIPTA) 100-62.5-25 MCG/INH oral inhaler, INHALE [...] A DAY vitamin D3 (CHOLECALCIFEROL) 250 mcg (17175 units) capsule, Take 1 capsule by mouth [...] Status --------- ------ CBC with platelets and d...[[id number]] Abnormal Final result Please view results for [...] blue color of the hand or foot [employer] last reviewed this educational content on 09/21/2017 ?? [phone] [employer]. All rights reserved. This information is not intended as a substitute for professional medical care. Always follow your healthcare professional's instructions. Follow up with primary care provider with any problems, questions or concerns or if symptoms worsen or fail to improve. Patient agreed to plan and verbalized understanding. RONI Palmer [facility] documented in this encounter Plan of [...] DECKER MD SYSTEM ID: [id number] Shani Chase AUTOMATED CUTTING MACHINE OPERATOR IMG DIAGNOSTIC IMAGING ORDER SADIQ (ABNORMAL) CBC with platelets and differential (09/27/2021 12:49 PM CDT) [facility] Time Signature WBC Count 7.8 4.0 [...] Address City/State/ZIP Code Phon [place] [address] Lab [address] [facility] Lab (no room number, 1st floor of clinic) [place] [address], [phone] [facility] [address] [facility] Lab (no room number, 1st floor of clinic) documented in this encounter Visit Diagnoses Diagnosis Leg injury, left, initial encounter - Pr imary Dental infection Acute apical periodontitis of pulpal [place] Cellulitis of left lower extremity Cellulitis and abscess of leg, except fo ot Hematoma of left lower leg Leg injury, left, initial encounter documented in this encounter Care Teams Craft Center Director Relationship Specialty Start Date End Date Froylan Louise MD PCP - General Family Practice 02/22/14 Froylan Louise MD Assigned PCP 03/13/14 2 Esthela Corea, RN Personal Advocate & Liaison Family Medicine 10/16 (PAL) documented as of this encounter
--- OUTSIDE RECORDS SUMMARY | 2022-05-15 22:45 | XMS_ITS | Encounter Summary ---
:1955 Author Organization [place] Address [address] [place] [address] Care Team Providers Name Role Phone Froylan Louise MD Primary Care Provider Unavailable Froylan Louise MD Unavailable Unavailable Esthela Corea RN Unavailable Unavailable Encounter Details Date Type Department Care Team Description 06/28/2021 [facility] Chr onic deep vein thrombosis (DVT) of lower extremity, unspecified laterality, unspecified vein (H); [facility] intermodal customer service current use of ant icoagulant therapy [address] [place] [address] Social History Tobacco Use [...] containing 4 or more times a w [place] 05/25/2021 alcohol? How many drinks containing alcohol [...] you attend protestant or Patient refused 2020 jain services? Do [...] with No / Unsure 06/28/2021 11:11 AM PRESCHOOL ASSISTANT TEACHER someone who was confirmed or suspected to have Coronavirus / COVID-19? documented as of this encounter Plan of Treatment Upcoming Encounters Date Type Specialty Care Team Description 05/20/2022 Lab Lab documented as of this encounter Procedures Procedure Name Priority Date/Time Associated Diagnosis Comme nts INR POINT OF CARE Routine 06/28/2021 11:12 Chronic deep vein R esults for this AM PRESCHOOL ASSISTANT TEACHER thrombosis (DVT) of procedur e are in lower extremity, the results unspecified section. laterality, unspecified vein (H) [facility] current use of anticoagulant therapy documented in this encounter Results (ABNORMAL) INR point of care (06/28/2021 11:12 AM PRESCHOOL ASSISTANT TEACHER) P athologist Signature INR 3.0 (H) 0.9 - 1.1 06/28/2021 [facility] 11:17 AM PRESCHOOL ASSISTANT TEACHER Specimen Anatomical Collection Method Collection Time Receive d Time (Source) Location / / Volume Laterality Blood STRUCTURE OF LEFT Capillary / 06/28/2021 11:12 2021 HAND / Unknown Unknown AM PRESCHOOL ASSISTANT TEACHER 11:12 AM PRESCHOOL ASSISTANT TEACHER Narrative [facility] - 06/28/2021 11:17 AM PRESCHOOL ASSISTANT TEACHER This test is intended for monitoring Cou madin therapy. Results are not accurate in patients with prolonged INR due to facto r deficiency. Froylan Louise MD LAB - BLOOD ORDERABLES Performing Organization Address City/State/ZIP Code Phon e Number [place] [address] [facility] Lab (no room number, 1st floor of clinic) [place] [address], [facility] [address] [facility] Lab (no room number, 1st floor of clinic) documented in this encounter Visit Diagnoses Diagnosis Chronic deep vein thrombosis (DVT) of lo wer extremity, unspecified laterality, unspecified vein (H) [facility] current use of anticoagulant t herapy documented in this encounter Care Teams Filler Machine Operator Relationship Specialty Start Date End Date Froylan Louise MD PCP - General Family Practice 02/22/14 Froylan Louise MD Assigned PCP 03/13/14 2 Esthela Corea RN Personal Advocate & Liaison Family Medicine 10/16 (PAL) documented as of this encounter
--- OUTSIDE RECORDS SUMMARY | 2022-05-15 22:45 | XMS_ITS | Encounter Summary ---
:1955 Author Organization [place] Address [address] [place] [address] Care Team Providers Name Role Phone Froylan Louise MD Primary Care Provider Unavailable Froylan Louise MD Unavailable Unavailable Esthela Corea RN Unavailable Unavailable Encounter Details Date Type Department Care Team Description 08/01/2021 [facility] Chr onic deep vein thrombosis (DVT) of lower extremity, unspecified laterality, unspecified vein (H); [facility] current use of ant icoagulant therapy [address] [place] [address] Social History Tobacco Use [...] you attend spiritism or Patient refused 2020 samaritan services? Do [...] with No / Unsure 08/01/2021 3:39 PM SURFACE GRINDER TENDER someone who was confirmed or suspected to have Coronavirus / COVID-19? documented as of this encounter Plan of Treatment Upcoming Encounters Date Type Specialty Care Team Description 05/20/2022 Lab Lab documented as of this encounter Procedures Procedure Name Priority Date/Time Associated Diagnosis Comme nts INR POINT OF CARE Routine 08/01/2021 3:40 PM Chronic deep vein Results for this SURFACE GRINDER TENDER thrombosis (DVT) of procedur e are in lower extremity, the results unspecified section. laterality, unspecified vein (H) [facility] current use of anticoagulant therapy documented in this encounter Results (ABNORMAL) INR point of care (08/01/2021 3:40 PM SURFACE GRINDER TENDER) P athologist Signature INR 2.4 (H) 0.9 - 1.1 08/01/2021 [facility] 3:45 PM SURFACE GRINDER TENDER Specimen Anatomical Collection Method / Collection Time Recei lindy Time (Source) Location / Volume Laterality Blood BLOOD SPECIMEN / Venipuncture / 08/01/2021 3:40 2021 3:40 Unknown Unknown PM SURFACE GRINDER TENDER PM SURFACE GRINDER TENDER Narrative [facility] - 08/01/2021 3:45 PM SURFACE GRINDER TENDER This test is intended for monitoring Cou madin therapy. Results are not accurate in patients with prolonged INR due to facto r deficiency. Froylan Louise MD LAB - BLOOD ORDERABLES Performing Organization Address City/State/ZIP Code Phon [place] [address] Lab [address] [facility] Lab (no room number, 1st floor of clinic) [place] [address], [facility] [address] [facility] Lab (no room number, 1st floor of clinic) documented in this encounter Visit Diagnoses Diagnosis Chronic deep vein thrombosis (DVT) of lo wer extremity, unspecified laterality, unspecified vein (H) [facility] current use of anticoagulant t herapy documented in this encounter Care Teams Lion Trainer Relationship Specialty Start Date End Date Froylan Louise MD PCP - General Family Practice 02/22/14 Froylan Louise MD Assigned PCP 03/13/14 2 Esthela Corea RN Personal Advocate & Liaison Family Medicine 10/16 (PAL) documented as of this encounter
--- OUTSIDE RECORDS SUMMARY | 2022-05-15 22:45 | XMS_ITS | Encounter Summary ---
:1955 Author Organization [place] Address [address] [place] [address] Care Team Providers Name Role Phone Froylan [...] you attend sabianism or Patient refused 2020 yazidi services? Do [...] on filedocumented in this encounter Care Teams Exerciser Horse Relationship Specialty Start Date End Date Froylan Louise MD PCP - General Family Practice 02/22/14 Froylan Louise MD Assigned PCP 03/13/14 2 Esthela Corea, RN Personal Advocate & Liaison Family Medicine 10/16 (PAL) documented as of this encounter
--- OUTSIDE RECORDS SUMMARY | 2022-05-15 22:45 | XMS_ITS | Encounter Summary ---
:1955 Author Organization [place] Address [address] [place] [address] Care Team Providers Name Role Phone Froylan Louise MD Primary Care Provider Unavailable Froylan Louise MD Unavailable Unavailable Esthela Corea RN Unavailable Unavailable Reason for Visit Reason Comments Medication Refill Encounter Details Date Type Department Care Team Description 08/01/2021 Refill [facility] Froylan Louise Ra, MD Medication Refill [address] [address] Social History Tobacco Use [...] 4 or more times a w [place] 05/25/2021 alcohol? How many drinks [...] you attend advent or Patient refused 2020 advent services? Do [...] with No / Unsure 08/01/2021 3:39 PM COMMUNITY SERVICE DIRECTOR someone who was confirmed or suspected to have Coronavirus / COVID-19? documented as of this encounter Plan of Treatment Upcoming Encounters Date Type Specialty Care Team Description 05/20/2022 Lab Lab documented as of this encounter Visit Diagnoses Diagnosis Insomnia, unspecified type documented in this encounter Care Teams Fur Grader Relationship Specialty Start Date End Date Froylan Louise MD PCP - General Family Practice 02/22/14 Froylan Louise MD Assigned PCP 03/13/14 2 Esthela Corea, RN Personal Advocate & Liaison Family Medicine 10/16 (PAL) documented as of this encounter
--- OUTSIDE RECORDS SUMMARY | 2022-05-15 22:45 | XMS_ITS | Encounter Summary ---
:1955 Author Organization [place] Address [facility] [place] [address] Care Team Providers Name Role Phone Froylan Louise MD Primary Care Provider Unavailable Froylan Louise MD Unavailable Unavailable Esthela Corea RN Unavailable Unavailable Encounter Details Date Type Department Care Team Description 10/23/2021 Anticoagulation [facility], Chronic deep vein thrombosis (DVT) of lower extremity, unspecified laterality, unspecified vein (H) (Primary Dx); Therapy Visit Anticoagulation Yaima Conrad RN medical terminologist c urrent use of anticoagulant therapy; Clinic Postthrombotic syndrome; [address] [facility] Anticardiolipin antibody pos itive; [place], [place] medical terminologist cu rrent use of anticoagulants with [...] you attend scientology or Patient refused 2020 presybeterian services? 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] medical terminologist current use of anticoagulants with INR goal of 2.0-3.0 [Z79.01] Comments: Anticoagulation Care Providers Provider Role Specialty Phone number Froylan Louise MD Referring Family Medicine [phone] documented in this encounter Plan of Treatment [...] Other and unspecified nonspecific immuno logical findings [facility] current use of anticoagulants with INR goal of 2.0-3.0 documented in this encounter Care Teams Lithographic Plate Maker Apprentice Relationship Specialty Start Date End Date Froylan Louise MD PCP - General Family Practice 02/22/14 Froylan Louise MD Assigned PCP 03/13/14 2 Esthela Corea, RN Personal Advocate & Liaison Family Medicine 10/16 (PAL) documented as of this encounter
--- OUTSIDE RECORDS SUMMARY | 2022-05-15 22:45 | XMS_ITS | Encounter Summary ---
:1955 Author Organization [facility] Address [address] [place] [address] Care Team Providers Name Role Phone Froylan [...] or more times a w [place] 05/25/2021 alcohol? How many drinks containing alcohol [...] you attend denominational or Patient refused 2020 mosque services? Do [...] on filedocumented in this encounter Care Teams Mold Changer Relationship Specialty Start Date End Date Froylan Louise MD PCP - General Family Practice 02/22/14 Froylan Louise MD Assigned PCP 03/13/14 2 Esthela Corea, RN Personal Advocate & Liaison Family Medicine 10/16 (PAL) documented as of this encounter
--- OUTSIDE RECORDS SUMMARY | 2022-05-15 22:45 | XMS_ITS | Encounter Summary ---
:1955 Author Organization [place] Address [address] [place] [address] Care Team Providers Name Role Phone Froylan [...] you attend advent or Patient refused 2020 evangelical services? Do [...] with No / Unsure 05/25/2021 2:49 PM BILLPOSTING SUPERVISOR someone who was confirmed or suspected to have Coronavirus / COVID-19? documented as of this encounter Plan of Treatment Upcoming Encounters Date Type Specialty Care Team Description 05/20/2022 Lab Lab documented as of this encounter Visit Diagnoses Not on filedocumented in this encounter Care Teams Weight Caller Relationship Specialty Start Date End Date Froylan Louise MD PCP - General Family Practice 02/22/14 Froylan Louise MD Assigned PCP 03/13/14 2 Esthela Corea, RN Personal Advocate & Liaison Family Medicine 10/16 (PAL) documented as of this encounter
--- OUTSIDE RECORDS SUMMARY | 2022-05-15 22:45 | XMS_ITS | Encounter Summary ---
:1955 Author Organization [place] Address [address] [place] [address]. [place] [address] Care Team Providers Name Role Phone Froylan Louise MD Primary Care Provider Unavailable Froylan Louise MD Unavailable Unavailable Esthela Corea RN Unavailable Unavailable Encounter Details Date Type Department Care Team Description 09/12/2021 Anticoagulation [facility], Chronic deep vein thrombosis (DVT) of lower extremity, unspecified laterality, unspecified vein (H) (Primary Dx); Therapy Visit Anticoagulation Diana Conrad RN halfway current use of anticoagulant therapy Clinic [address] [place] [address] Social History Tobacco Use Types [...] you attend nondenominational or Patient refused 2020 rastafari services? Do [...] of consistent vitamin K intake and Contact [phone] with any changes, questions or concerns. Plan made per [facility] anticoagulation protocol Diana Nielsen RN Anticoagulation Clinic 09/12/2021 Anticoagulation Episode Summary Current INR goal: 2.0-3.0 TTR: 66.2 % (11.8 mo) Target end date: Indefinite Send INR reminders to: [facility] Indications Chronic deep vein thrombosis (DVT) of lower extremity unspecified laterality unspecified vein (H) [I82.509] Long-term (current) use of anticoagulants [Z79.01] [Z79.01] Comments: Anticoagulation Care Providers Provider Role Specialty Phone number Froylan Louise MD Referring Family Medicine [phone] documented in this encounter Plan of Treatment Upcoming Encounters Date Type Specialty Care Team Description 05/20/2022 Lab Lab documented as of this encounter Visit Diagnoses Diagnosis Chronic deep vein thrombosis (DVT) of lo wer extremity, unspecified laterality, unspecified vein (H) - Primary ferry terminal supervisor current use of anticoagulant t herapy documented in this encounter Care Teams Concrete Pourer Relationship Specialty Start Date End Date Froylan Louise MD PCP - General Family Practice 02/22/14 Froylan Louise MD Assigned PCP 03/13/14 2 Esthela Corea, RN Personal Advocate & Liaison Family Medicine 10/16 (PAL) documented as of this encounter
--- OUTSIDE RECORDS SUMMARY | 2022-05-15 22:45 | XMS_ITS | Encounter Summary ---
:1955 Author Organization [place] Address [facility] [place] [address] Care Team Providers Name Role Phone Froylan Louise MD Primary Care Provider Unavailable Froylan Louise MD Unavailable Unavailable Esthela Corea RN Unavailable Unavailable Encounter Details Date Type Department Care Team Description 05/25/2021 [facility] (DVT) of lower extremity, unspecified laterality, unspecified vein (H) (Primary Dx); Therapy Visit Anticoagulation Clin ic [place], intermediate frame tender current use of ant icoagulant therapy [address], [place] [address] Social History Tobacco Use Types [...] you attend methodist or Patient refused 2020 anabaptist services? Do [...] with No / Unsure 05/25/2021 2:49 PM PEDIATRIC NEUROLOGIST someone who was confirmed or suspected to [...] you've been taking warfarin Plan made per [facility] anticoagulation protocol Stevo Thorne RN Anticoagulation [...] number Froylan Louise MD Referring Family Medicine [phone] ATRIC NEUROLOGIST documented in this encounter Plan of Treatment Upcoming Encounters Date Type Specialty Care Team Description 05/20/2022 Lab Lab documented as of this encounter Visit Diagnoses Diagnosis Chronic deep vein thrombosis (DVT) of lo wer extremity, unspecified laterality, unspecified vein (H) - Primary intermediate frame tender current use of anticoagulant t herapy documented in this encounter Care Teams Director Staffing Relationship Specialty Start Date End Date Froylan Louise MD PCP - General Family Practice 02/22/14 Froylan Louise MD Assigned PCP 03/13/14 2 Esthela Corea RN Personal Advocate & Liaison Family Medicine 10/16 (PAL) documented as of this encounter
--- OUTSIDE RECORDS SUMMARY | 2022-05-15 22:45 | XMS_ITS | Encounter Summary ---
:1955 Author Organization [place] Address [address] [place] [address] Care Team Providers Name Role Phone Froylan Louise MD Primary Care Provider Unavailable Froylan Louise MD Unavailable Unavailable Esthela Corea RN Unavailable Unavailable Encounter Details Date Type Department Care Team Description 06/08/2021 Telephone [facility] Froylan Louise Ra, MD [place] [address] [place] [address] Social History Tobacco Use [...] you attend mormon or Patient refused 2020 voodoo services? Do [...] with No / Unsure 05/25/2021 2:49 PM PHOTOGRAPHIC HAND DEVELOPER someone who was confirmed or suspected to have Coronavirus / COVID-19? documented as of this encounter Plan of Treatment Upcoming Encounters Date Type Specialty Care Team Description 05/20/2022 Lab Lab documented as of this encounter Visit Diagnoses Not on filedocumented in this encounter Care Teams Docking Pilot Relationship Specialty Start Date End Date Froylan Louise MD PCP - General Family Practice 02/22/14 Froylan Louise MD Assigned PCP 03/13/14 2 sEthela Corea RN Personal Advocate & Liaison Family Medicine 10/16 (PAL) documented as of this encounter
--- OUTSIDE RECORDS SUMMARY | 2022-05-15 22:45 | XMS_ITS | Encounter Summary ---
:1955 Author Organization [place] Address [address] [place] [address] Care Team Providers Name Role Phone Froylan Louise MD Primary Care Provider Unavailable Froylan Louise MD Unavailable Unavailable Esthela Corea RN Unavailable Unavailable Encounter Details Date Type Department Care Team Description 09/12/2021 [facility] Chr onic deep vein thrombosis (DVT) of lower extremity, unspecified laterality, unspecified vein (H); [facility] senior care current use of ant icoagulant therapy [address] [place] [address] Social History Tobacco Use [...] you attend druze or Patient refused 2020 lutheran services? Do [...] unspecified section. laterality, unspecified vein (H) senior care current use of anticoagulant therapy documented [...] City/State/ZIP Code [place] [address] [address] [facility] Lab (no room number, 1st floor of clinic) [place] [address], [facility] [address] [facility] Lab (no room number, 1st floor of clinic) documented in this encounter Visit Diagnoses Diagnosis Chronic deep vein thrombosis (DVT) of lo wer extremity, unspecified laterality, unspecified vein (H) terminal manager current use of anticoagulant t herapy documented in this encounter Care Teams Promotions Executive Relationship Specialty Start Date End Date Froylan Louise MD PCP - General Family Practice 02/22/14 Froylan Louise MD Assigned PCP 03/13/14 2 Esthela Corea RN Personal Advocate & Liaison Family Medicine 10/16 (PAL) documented as of this encounter
--- OUTSIDE RECORDS SUMMARY | 2022-05-15 22:45 | XMS_ITS | Encounter Summary ---
:1955 Author Organization [place] Address [address] [place] [address] Care Team Providers Name Role Phone Froylan Louise MD Primary Care Provider Unavailable Froylan Louise MD Unavailable Unavailable Esthela Corea RN Unavailable Unavailable Reason for Visit Reason Comments Medication Refill Encounter Details Date Type Department Care Team Description 10/16/2021 Refill [facility] Froylan Louise Ra, MD Medication Refill [address] [address] Social History Tobacco Use [...] containing 4 or more times a w [place] 05/25/2021 alcohol? How many drinks containing alcohol [...] you attend yazidi or Patient refused 2020 presybeterian services? Do [...] type documented in this encounter Care Teams Control Systems Drafting Officer Relationship Specialty Start Date End Date Froylan Louise MD PCP - General Family Practice 02/22/14 Froylan Louise MD Assigned PCP 03/13/14 2 Esthela Corea, RN Personal Advocate & Liaison Family Medicine 10/16 (PAL) documented as of this encounter
--- OUTSIDE RECORDS SUMMARY | 2022-05-15 22:45 | XMS_ITS | Encounter Summary ---
:1955 Author Organization [place] Address [address] [place] [address]. [place] [address] Care Team Providers Name Role Phone Froylan Louise MD Primary Care Provider Unavailable Froylan Louise MD Unavailable Unavailable Esthela Corea RN Unavailable Unavailable Encounter Details Date Type Department Care Team Description 08/01/2021 Anticoagulation [facility], Chronic deep vein thrombosis (DVT) of lower extremity, unspecified laterality, unspecified vein (H) (Primary Dx); Therapy Visit Anticoagulation Diana Conrad RN assisted current use of anticoagulant therapy Clinic [address] [place] [address] Social History Tobacco Use Types [...] containing 4 or more times a w [place] 05/25/2021 alcohol? How many drinks containing alcohol [...] you attend islam or Patient refused 2020 nondenominational services? Do [...] with No / Unsure 08/01/2021 3:39 PM OIL HEATER INSTALLER someone who was confirmed or suspected [...] for changes. Last two INRs therapeutic.If, after outpatient coder, no changes or concerns, next INR in 6 weeks. Left message to continue current dose of warfarin 5 mg tonight. Request call back for assessment. Anticoagulation clinic to follow up Diana Nielsen RN HEATER INSTALLER Diana Nielsen RN - 08/01/2021 5:47 PM [...] how you've been taking warfarin and Contact [phone] with any changes, questions or concerns. 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
--- OUTSIDE RECORDS SUMMARY | 2022-05-15 22:45 | XMS_ITS | Encounter Summary ---
:1955 Author Organization [place] Address [address] [place] [address] Care Team Providers Name Role Phone Froylan Louise MD Primary Care Provider Unavailable Froylan Louise MD Unavailable Unavailable Esthela Corea RN Unavailable Unavailable Reason for Visit Reason Comments Medication Refill Encounter Details Date Type Department Care Team Description 08/27/2021 Refill [facility] Froylan Louise Ra, MD Medication Refill [address] [address] Social History Tobacco Use [...] you attend restorationism or Patient refused 2020 protestant services? Do [...] with No / Unsure 08/01/2021 3:39 PM FRENCH FOLDER someone who was confirmed or suspected to have Coronavirus / COVID-19? documented as of this encounter Plan of Treatment Upcoming Encounters Date Type Specialty Care Team Description 05/20/2022 Lab Lab documented as of this encounter Visit Diagnoses Diagnosis H/O ulcerative colitis Personal history of other diseases of di gestive system documented in this encounter Care Teams Employment Attorney Relationship Specialty Start Date End Date Froylan Louise MD PCP - General Family Practice 02/22/14 Froylan Louise MD Assigned PCP 03/13/14 2 Esthela Corea, RN Personal Advocate & Liaison Family Medicine 10/16 (PAL) documented as of this encounter
--- OUTSIDE RECORDS SUMMARY | 2022-05-15 22:45 | XMS_ITS | Encounter Summary ---
:1955 Author Organization [place] Address [facility] [place] [address] Care Team Providers Name Role Phone Froylan Louise MD Primary Care Provider Unavailable Froylan Louise MD Unavailable Unavailable Esthela Corea RN Unavailable Unavailable Reason for Visit Diagnostic Imaging XR (Routine) - Pending Review Specialty Diagnoses / Procedures Referred By Contact Refer red To Contact Diagnoses Leg injury, left, initial encounter Shani Chase NP Procedures XR Tibia & Fibula Left [address] [place] [address] Referral ID Status Reason Start Date Expiration Date Visits V isits Requested Authorized [id number] Pending 09/27/2021 09/27/2022 1 1 Review Encounter Details Date Type Department Care Team Description 09/27/2021 Ancillary Procedure [facility] Shani Chase Leg injury, left, Clinic Chhaya Conrad, JANNET initial encounter [address] [facility] [address] [place] [address] [phone] Social History Tobacco Use Types Packs/Day Years Used Date Smoking Tobacco: Former Cigarettes 2 25 Quit : 08/04/2006 Smokeless Tobacco: Never Comments: 2004 Alcohol Use Standard Drinks/Week Comments Yes 0 (1 standard drink = 0.6 oz pure alcoho l) 4 BEERS A day Alcohol Habits Answer Date Recorded How often do you have a drink containing 4 or more times a w [place] 05/25/2021 alcohol? How many drinks containing alcohol [...] you attend caodaism or Patient refused 2020 adventist services? Do [...] encounter documented in this encounter Care Teams Front End Software Developer Relationship Specialty Start Date End Date Froylan Louise MD PCP - General Family Practice 02/22/14 Froylan Louise MD Assigned PCP 03/13/14 2 Esthela Corea, RN Personal Advocate & Liaison Family Medicine 10/16 (PAL) documented as of this encounter
--- OUTSIDE RECORDS SUMMARY | 2022-05-15 22:45 | XMS_ITS | Encounter Summary ---
:1955 Author Organization [place] Address [address] [place] [address] Care Team Providers Name Role Phone Froylan Louise MD Primary Care Provider Unavailable Froylan Louise MD Unavailable Unavailable Esthela Corea RN Unavailable Unavailable Reason for Visit Reason Onset Date Comments Refill Request 05/24/2021 lisinopril-hydrochlo rothiazide (ZESTORETIC) 20-25 MG tablet Encounter Details Date Type Department Care Team Description 05/24/[address] [facility] Froylan Louise Ra, Refill Request Chhaya VILLASEÑOR (lisinopril-hydrochlorot [address] [facility] hiazide (ZESTORETIC) [place] [address] 20-25 MG tablet) [phone] Social History Tobacco Use Types Packs/Day Years [...] you attend episcopal or Patient refused 2020 voodoo services? Do [...] with No / Unsure 05/07/2021 3:18 PM MILITARY POLICE OFFICER someone who was confirmed or suspected to have Coronavirus / COVID-19? documented as of this encounter Miscellaneous Notes Telephone Encounter - Arleen Esparza RN - 05/25/2021 10:18 AM CST Patient given a 6 month supply of medication on 01/12/21. Requesting a refill too soon. Refusing refill request and closing encounter. Arleen Esparza RN on 05/25/2021 at 10:18 AM TARY POLICE OFFICER documented in this encounter Plan of Treatment Upcoming Encounters Date Type Specialty Care Team Description 05/20/2022 Lab Lab documented as of this encounter Visit Diagnoses Diagnosis Benign essential hypertension Essential hypertension, benign documented in this encounter Care Teams Copy Editor Relationship Specialty Start Date End Date Froylan Louise MD PCP - General Family Practice 02/22/14 Froylan Louise MD Assigned PCP 03/13/14 2 Esthela Corea RN Personal Advocate & Liaison Family Medicine 10/16 (PAL) documented as of this encounter
--- OUTSIDE RECORDS SUMMARY | 2022-05-15 22:46 | XMS_ITS | Encounter Summary ---
:1955 Author Organization [place] Address [address] [place] [address] Care Team Providers Name Role Phone Froylan Louise MD Primary Care Provider Unavailable Froylan Louise MD Unavailable Unavailable Esthela Corea RN Unavailable Unavailable Encounter Details Date Type Department Care Team Description 04/26/2021 [facility] Chr onic deep vein thrombosis (DVT) of lower extremity, unspecified laterality, unspecified vein (H); [facility] current use of ant icoagulant therapy [address] [place] [address] Social History Tobacco Use [...] you attend shinto or Patient refused 2020 denominational services? Do [...] results unspecified section. laterality, unspecified vein (H) [facility] current use of anticoagulant therapy documented in [...] City/State/ZIP Code [place] [address] Lab [address] [facility], 1st floor of clinic) [place] [address], [phone] [facility] [address] [facility] (no room number, 1st floor of clinic) documented in this encounter Visit Diagnoses Diagnosis Chronic deep vein thrombosis (DVT) of lo wer extremity, unspecified laterality, unspecified vein (H) [facility] current use of anticoagulant t herapy documented in this encounter Care Teams Medical Chemist Relationship Specialty Start Date End Date Froylan Louise MD PCP - General Family Practice 02/22/14 Froylan Louise MD Assigned PCP 03/13/14 2 Esthela Corea, RN Personal Advocate & Liaison Family Medicine 10/16 (PAL) documented as of this encounter
--- OUTSIDE RECORDS SUMMARY | 2022-05-15 22:46 | XMS_ITS | Encounter Summary ---
:1955 Author Organization [place] Address [address] [place] [address] Care Team Providers Name Role Phone Froylan Louise MD Primary Care Provider Unavailable Froylan Louise MD Unavailable Unavailable Esthela Corea RN Unavailable Unavailable Encounter Details Date Type Department Care Team Description 05/07/2021 [facility] Chr onic deep vein thrombosis (DVT) of lower extremity, unspecified laterality, unspecified vein (H); [facility] ad terminal makeup operator current use of ant icoagulant therapy [address] [place] [address] Social History Tobacco Use [...] you attend muslim or Patient refused 2020 sikhism services? Do [...] with No / Unsure 05/07/2021 3:18 PM NOVELTY CHAIN MAKER someone who was confirmed or suspected to have Coronavirus / COVID-19? documented as of this encounter Plan of Treatment Upcoming Encounters Date Type Specialty Care Team Description 05/20/2022 Lab Lab documented as of this encounter Procedures Procedure Name Priority Date/Time Associated Diagnosis Comme nts INR POINT OF CARE Routine 05/07/2021 3:19 PM Chronic deep vein Results for this NOVELTY CHAIN MAKER thrombosis (DVT) of procedur e are in lower extremity, the results unspecified section. laterality, unspecified vein (H) snf current use of anticoagulant therapy documented in this encounter Results (ABNORMAL) INR point of care (05/07/2021 3:19 PM NOVELTY CHAIN MAKER) P athologist Signature INR 3.1 (H) 0.9 - 1.1 05/07/2021 [facility] 4:00 PM NOVELTY CHAIN MAKER Specimen Anatomical Collection Method / Collection Time Recei lindy Time (Source) Location / Volume Laterality Blood STRUCTURE OF Venipuncture / 05/07/2021 3:19 05/07/2021 3:20 FINGER OF RIGHT Unknown PM NOVELTY CHAIN MAKER PM NOVELTY CHAIN MAKER HAND / Unknown Narrative [facility] - 05/07/2021 4:00 PM NOVELTY CHAIN MAKER This test is intended for monitoring Cou madin therapy. Results are not accurate in patients with prolonged INR due to facto r deficiency. Froylan Louise MD LAB - BLOOD ORDERABLES Performing Organization Address City/State/ZIP Code Ph[place] [address] Lab [address] [facility], 1st floor of clinic) [place] [address], [phone] [facility] [address] [facility]no room number, 1st floor of clinic) documented in this encounter Visit Diagnoses Diagnosis Chronic deep vein thrombosis (DVT) of lo wer extremity, unspecified laterality, unspecified vein (H) snf current use of anticoagulant t herapy documented in this encounter Care Teams Bakery Helper Relationship Specialty Start Date End Date Froylan Louise MD PCP - General Family Practice 02/22/14 Froylan Louise MD Assigned PCP 03/13/14 2 Esthela Corea, RN Personal Advocate & Liaison Family Medicine 10/16 (PAL) documented as of this encounter
--- OUTSIDE RECORDS SUMMARY | 2022-05-15 22:46 | XMS_ITS | Encounter Summary ---
:1955 Author Organization [place] Address [facility] [place] [address] Care Team Providers Name Role Phone Froylan Louise MD Primary Care Provider Unavailable Froylan Louise MD Unavailable Unavailable Esthela Corea RN Unavailable Unavailable Encounter Details Date Type Department Care Team Description 03/05/2021 Telephone [facility] [place] Nuñez MD [facility] [address] [place] [address] [place] [address] [place] [address] [phone] Social History Tobacco Use Types Packs/Day Years [...] you attend evangelical or Patient refused 2020 jehovah's witness services? [...] Nicolas Ford - 03/05/2021 10:28 AM CDT [facility] Wound Who is the name of the [...] on filedocumented in this encounter Care Teams Receiving Inspector Relationship Specialty Start Date End Date Froylan Louise MD PCP - General Family Practice 02/22/14 Froylan Louise MD Assigned PCP 03/13/14 2 Esthela Corea RN Personal Advocate & Liaison Family Medicine 10/16 (PAL) documented as of this encounter
--- OUTSIDE RECORDS SUMMARY | 2022-05-15 22:46 | XMS_ITS | Encounter Summary ---
:1955 Author Organization [place] Address [address] [place] [address] Care Team Providers Name Role Phone Froylan Louise MD Primary Care Provider Unavailable Froylan Louise MD Unavailable Unavailable Esthela Corea RN Unavailable Unavailable Reason for Visit Reason Onset Date Comments Anticoagulation 04/13/2021 Encounter Details Date Type Department Care Team Description 04/13/2021 Telephone [facility] Froylan Louise Ra, MD [address] [address] Social History Tobacco Use [...] attend roman catholic or Patient refused 2020 judaism services? Do [...] end date: Indefinite Send INR reminders to: [facility] Indications Chronic deep vein thrombosis (DVT) of lower extremity unspecified laterality unspecified vein (H) [I82.509] Long-term (current) use of anticoagulants [Z79.01] [Z79.01] Comments: Anticoagulation Care Providers Provider Role Specialty Phone number Froylan Louise MD Referring Family Medicine [phone] Telephone Encounter - Arminda Toth - 04/13/2021 3:46 PM CDT Reason for Call: Other anti-coag Detailed comments: patient called requesting to speak with Diana for instructions from todays INR. Phone Number Patient can be reached at: Home number on file [phone] (home) Best Time: any Can we leave [...] herapy documented in this encounter Care Teams Reset Merchandiser Relationship Specialty Start Date End Date Froylan Louise MD PCP - General Family Practice 02/22/14 Froylan Louise MD Assigned PCP 03/13/14 2 Esthela Corea, RN Personal Advocate & Liaison Family Medicine 10/16 (PAL) documented as of this encounter
--- OUTSIDE RECORDS SUMMARY | 2022-05-15 22:46 | XMS_ITS | Encounter Summary ---
:1955 Author Organization [place] Address [facility] [place] [address] Care Team Providers Name Role Phone Froylan Louise MD Primary Care Provider Unavailable Froylan Louise MD Unavailable Unavailable Esthela Corea RN Unavailable Unavailable Encounter Details Date Type Department Care Team Description 04/04/2021 Hospital Encounter [facility] Wound Uriel Nuñez MD Open wound Clinic [place] [address] [place] [address] [place] [address] [phone] Social History Tobacco Use Types Packs/Day Years [...] you attend lutheran or Patient refused 2020 druze services? 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 Anticardiolipin antibody positive ??? Mild persistent asthma ??? Health Jail ? ? Hyperlipidemia LDL goal <130 ??? [...] complication documented in this encounter Care Teams Piping Engineer Relationship Specialty Start Date End Date Froylan Louise MD PCP - General Family Practice 02/22/14 Froylan Louise MD Assigned PCP 03/13/14 2 Esthela Corea, RN Personal Advocate & Liaison Family Medicine 10/16 (PAL) documented as of this encounter
--- OUTSIDE RECORDS SUMMARY | 2022-05-15 22:46 | XMS_ITS | Encounter Summary ---
:1955 Author Organization [place] Address [address] [place] [address] Care Team Providers Name Role Phone Froylan [...] containing 4 or more times a w [place] 05/25/2021 alcohol? How many drinks containing alcohol [...] you attend confucianist or Patient refused 2020 adventist services? Do [...] filedocumented in this encounter Care Teams Quality Audit Representative Relationship Specialty Start Date End Date Froylan Louise MD PCP - General Family Practice 02/22/14 Froylan Louise MD Assigned PCP 03/13/14 2 Esthela Corea, RN Personal Advocate & Liaison Family Medicine 10/16 (PAL) documented as of this encounter
--- OUTSIDE RECORDS SUMMARY | 2022-05-15 22:46 | XMS_ITS | Encounter Summary ---
:1955 Author Organization [place] Address [address] [place] [address] Care Team Providers Name Role Phone Froylan [...] 4 or more times a w [place] 05/25/2021 alcohol? How many drinks containing [...] you attend gnosticism or Patient refused 2020 christian services? Do [...] on filedocumented in this encounter Care Teams Soft Boarder Relationship Specialty Start Date End Date Froylan Louise MD PCP - General Family Practice 02/22/14 Froylan Louise MD Assigned PCP 03/13/14 2 Esthela Corea, RN Personal Advocate & Liaison Family Medicine 10/16 (PAL) documented as of this encounter
--- OUTSIDE RECORDS SUMMARY | 2022-05-15 22:46 | XMS_ITS | Encounter Summary ---
:1955 Author Organization [place] Address [facility] [place] [address] Care Team Providers Name Role Phone Froylan Louise MD Primary Care Provider Unavailable Froylan Louise MD Unavailable Unavailable Esthela Corea RN Unavailable Unavailable Encounter Details Date Type Department Care Team Description 05/07/2021 Anticoagulation [facility], Chronic deep vein thrombosis (DVT) of lower extremity, unspecified laterality, unspecified vein (H) (Primary Dx); Therapy Visit Anticoagulation Diana Conrad RN [facility] current use of anticoagulant therapy Clinic [address] [place] [address] Social History Tobacco Use Types [...] you attend uatsdin or Patient refused 2020 oriental orthodox services? [...] with No / Unsure 05/07/2021 3:18 PM FORESTRY FOREMAN someone who was confirmed or suspected to [...] and significance of current result and Contact [phone] with any changes, questions or concerns. Plan made per [facility] anticoagulation protocol Diaan Nielsen RN Anticoagulation Clinic 05/07/2021 Anticoagulation Episode [...] number Froylan Louise MD Referring Family Medicine [phone] STRY FOREMAN documented in this encounter Plan of Treatment Upcoming Encounters Date Type Specialty Care Team Description 05/20/2022 Lab Lab documented as of this encounter Visit Diagnoses Diagnosis Chronic deep vein thrombosis (DVT) of lo wer extremity, unspecified laterality, unspecified vein (H) - Primary [facility] current use of anticoagulant t herapy documented in this encounter Care Teams Inspector And Tester Relationship Specialty Start Date End Date Froylan Louise MD PCP - General Family Practice 02/22/14 Froylan Louise MD Assigned PCP 03/13/14 2 Esthela Corea, RN Personal Advocate & Liaison Family Medicine 10/16 (PAL) documented as of this encounter
--- OUTSIDE RECORDS SUMMARY | 2022-05-15 22:46 | XMS_ITS | Encounter Summary ---
:1955 Author Organization [place] Address [address] [place] [address] Care Team Providers Name Role Phone Froylan [...] 4 or more times a w [place] 05/25/2021 alcohol? How many drinks containing [...] you attend spiritism or Patient refused 2020 denominational services? Do [...] on filedocumented in this encounter Care Teams Spring Repairer Helper Hand Relationship Specialty Start Date End Date Froylan Louise MD PCP - General Family Practice 02/22/14 Froylan Louise MD Assigned PCP 03/13/14 2 Esthela Corea, RN Personal Advocate & Liaison Family Medicine 10/16 (PAL) documented as of this encounter
--- OUTSIDE RECORDS SUMMARY | 2022-05-15 22:46 | XMS_ITS | Encounter Summary ---
:1955 Author Organization [place] Address [address] [place] [address] Care Team Providers Name Role Phone Froylan Louise MD Primary Care Provider Unavailable Froylan Louise MD Unavailable Unavailable Esthela Corea RN Unavailable Unavailable Reason for Visit Reason Comments Medication Refill Encounter Details Date Type Department Care Team Description 04/17/2021 Refill [facility] Froylan Louise Ra, MD Medication Refill [address] [address] Social History Tobacco Use [...] containing 4 or more times a w [place] 05/25/2021 alcohol? How many drinks containing alcohol [...] you attend latter-day or Patient refused 2020 catholic services? Do [...] for next INR 04/27/21. Prescription approved per [facility] Refill Protocol. Telephone Encounter - Yudith Mejia RN - 04/19/2021 9:58 AM CDT Routing refill request to provider for review/approval because: Routed to INR pool Prescription approved per [facility] Refill Protocol. Yudith Mejia RN, BSN Message handled by CLINIC NURSE. documented in this encounter Plan of Treatment Upcoming Encounters Date Type Specialty Care Team Description 05/20/2022 Lab Lab documented as of this encounter Visit Diagnoses Diagnosis Acute deep vein thrombosis (DVT) of prox imal vein of both lower extremities (H) Lichen planus documented in this encounter Care Teams Shredder Picker Relationship Specialty Start Date End Date Froylan Louise MD PCP - General Family Practice 02/22/14 Froylan Louise MD Assigned PCP 03/13/14 2 Esthela Corea RN Personal Advocate & Liaison Family Medicine 10/16 (PAL) documented as of this encounter
--- OUTSIDE RECORDS SUMMARY | 2022-05-15 22:46 | XMS_ITS | Encounter Summary ---
:1955 Author Organization [place] Address [address] [place] [address] Care Team Providers Name Role Phone Froylan [...] you attend religious or Patient refused 2020 temple services? Do [...] on filedocumented in this encounter Care Teams Marble Setter Relationship Specialty Start Date End Date Froylan Louise MD PCP - General Family Practice 02/22/14 Froylan Louise MD Assigned PCP 03/13/14 2 Esthela Corea, RN Personal Advocate & Liaison Family Medicine 10/16 (PAL) documented as of this encounter
--- OUTSIDE RECORDS SUMMARY | 2022-05-15 22:46 | XMS_ITS | Encounter Summary ---
:1955 Author Organization [place] Address [address] [place] [address]. [place] [address] Care Team Providers Name Role Phone Froylan Louise MD Primary Care Provider Unavailable Froylan Louise MD Unavailable Unavailable Esthela Corea RN Unavailable Unavailable Encounter Details Date Type Department Care Team Description 04/26/2021 Anticoagulation [facility], Chronic deep vein thrombosis (DVT) of lower extremity, unspecified laterality, unspecified vein (H) (Primary Dx); Therapy Visit Anticoagulation Shaniqua Hein RN [facility] current use of anticoagulant therapy Clinic [address] [place] [address] Social History Tobacco Use Types [...] containing 4 or more times a w [place] 05/25/2021 alcohol? How many drinks containing alcohol [...] you attend muslim or Patient refused 2020 hindu services? Do [...] lab recheck maybe needed. Plan made per [facility] anticoagulation protocol Shaniqua Humphrey RN Anticoagulation Clinic 04/26/2021 Anticoagulation Episode Summary Current INR goal: 2.0-3.0 TTR: 52.3 % (11.8 mo) Target end date: Indefinite Send INR reminders to: [facility] Indications Chronic deep vein thrombosis (DVT) of lower extremity unspecified laterality unspecified vein (H) [I82.509] Long-term (current) use of anticoagulants [Z79.01] [Z79.01] Comments: Anticoagulation Care Providers Provider Role Specialty Phone number Froylan Louise MD Referring Family Medicine [phone] documented in this encounter Plan of Treatment Upcoming Encounters Date Type Specialty Care Team Description 05/20/2022 Lab Lab documented as of this encounter Visit Diagnoses Diagnosis Chronic deep vein thrombosis (DVT) of lo wer extremity, unspecified laterality, unspecified vein (H) - Primary terminal 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
--- OUTSIDE RECORDS SUMMARY | 2022-05-15 22:46 | XMS_ITS | Encounter Summary ---
:1955 Author Organization [place] Address [address] [place] [address] Care Team Providers Name Role Phone Froylan Louise MD Primary Care Provider Unavailable Froylan Louise MD Unavailable Unavailable Esthela Corea RN Unavailable Unavailable Encounter Details Date Type Department Care Team Description 03/22/2021 [facility] Chr onic deep vein thrombosis (DVT) of lower extremity, unspecified laterality, unspecified vein (H); [facility] intermediate card tender current use of ant icoagulant therapy [address] [place] [address] Social History Tobacco Use [...] attend oriental orthodox or Patient refused 2020 temple services? Do [...] results unspecified section. laterality, unspecified vein (H) prison current use of anticoagulant therapy documented in [...] Address City/State/ZIP Code [place] [address] Lab [address] [facility] Lab (no room number, 1st floor of clinic) [place] [address], [facility] [address] [facility] (no room number, 1st floor of clinic) documented in this encounter Visit Diagnoses Diagnosis Chronic deep vein thrombosis (DVT) of lo wer extremity, unspecified laterality, unspecified vein (H) prison current use of anticoagulant t herapy documented in this encounter Care Teams Major Sales Associate Relationship Specialty Start Date End Date Froylan Louise MD PCP - General Family Practice 02/22/14 Froylan Louise MD Assigned PCP 03/13/14 2 Esthela Corea RN Personal Advocate & Liaison Family Medicine 10/16 (PAL) documented as of this encounter
--- OUTSIDE RECORDS SUMMARY | 2022-05-15 22:46 | XMS_ITS | Encounter Summary ---
:1955 Author Organization [place] Address [address] [place] [address] Care Team Providers Name Role Phone Froylan Louise MD Primary Care Provider Unavailable Froylan Louise MD Unavailable Unavailable Esthela Corea RN Unavailable Unavailable Encounter Details Date Type Department Care Team Description 04/13/2021 [facility] Chr onic deep vein thrombosis (DVT) of lower extremity, unspecified laterality, unspecified vein (H); [facility] current use of ant icoagulant therapy [address] [place] [address] Social History Tobacco Use [...] Address City/State/ZIP Code [place] [address] Lab [address] [facility] Lab (no room number, 1st floor of clinic) [place] [address], [phone] [facility] [address] [facility] Lab (no room number, 1st floor of clinic) documented in this encounter Visit Diagnoses Diagnosis Chronic deep vein thrombosis (DVT) of lo wer extremity, unspecified laterality, unspecified vein (H) [facility] current use of anticoagulant t herapy documented in this encounter Care Teams Oxygen Plant Operator Relationship Specialty Start Date End Date Froylan Louise MD PCP - General Family Practice 02/22/14 Froylan Louise MD Assigned PCP 03/13/14 2 Esthela Corea RN Personal Advocate & Liaison Family Medicine 10/16 (PAL) documented as of this encounter
--- OUTSIDE RECORDS SUMMARY | 2022-05-15 22:46 | XMS_ITS | Encounter Summary ---
:1955 Author Organization [place] Address [facility] [place] [address] Care Team Providers Name Role Phone Froylan Louise MD Primary Care Provider Unavailable Froylan Louise MD Unavailable Unavailable Esthela Corea RN Unavailable Unavailable Reason for Visit Reason Onset Date Comments WOUND CARE 04/23/2021 Encounter Details Date Type Department Care Team Description 04/23/2021 Telephone [facility] Wound [place] Nuñez MD WOUND CARE Clinic [place] [address] [place] [address] [place] [address] [place] [address] [phone] Social History Tobacco Use Types Packs/Day Years [...] you attend anabaptist or Patient refused 2020 mosque services? Do [...] a nurse to call him back at [phone]. documented in this encounter Plan of Treatment Upcoming Encounters Date Type Specialty Care Team Description 05/20/2022 Lab Lab documented as of this encounter Visit Diagnoses Not on filedocumented in this encounter Care Teams Knit Tubing Dyer Relationship Specialty Start Date End Date Froylan Louise MD PCP - General Family Practice 02/22/14 Froylan Louise MD Assigned PCP 03/13/14 2 Esthela Corea, RN Personal Advocate & Liaison Family Medicine 10/16 (PAL) documented as of this encounter
--- OUTSIDE RECORDS SUMMARY | 2022-05-15 22:46 | XMS_ITS | Encounter Summary ---
:1955 Author Organization [place] Address [address] [place] [address] Care Team Providers Name Role Phone Froylan [...] with No / Unsure 05/07/2021 3:18 PM STEEL PLACER someone who was confirmed or suspected to have Coronavirus / COVID-19? documented as of this encounter Plan of Treatment Upcoming Encounters Date Type Specialty Care Team Description 05/20/2022 Lab Lab documented as of this encounter Visit Diagnoses Not on filedocumented in this encounter Care Teams Bedspread Folder Relationship Specialty Start Date End Date Froylan Louise MD PCP - General Family Practice 02/22/14 Froylan Louise MD Assigned PCP 03/13/14 2 Esthela Corea, RN Personal Advocate & Liaison Family Medicine 10/16 (PAL) documented as of this encounter
--- OUTSIDE RECORDS SUMMARY | 2022-05-15 22:46 | XMS_ITS | Encounter Summary ---
:1955 Author Organization [place] Address [address] [place] [address] Care Team Providers Name Role Phone Froylan Louise MD Primary Care Provider Unavailable Froylan Louise MD Unavailable Unavailable Esthela Corea RN Unavailable Unavailable Reason for Visit Reason Onset Date Comments Anticoagulation 03/27/2021 Encounter Details Date Type Department Care Team Description 03/27/2021 Telephone [facility] Froylan Louise Ra, MD [address] [address] Social History Tobacco [...] you attend tenriism or Patient refused 2020 hinduism services? Do [...] Telephone Encounter - Stevo Thorne RN - 04/02/2021 10:07 AM CDT Spoke with patient, he states he will just stick with the warfarin. Rosmery Thorne RN [facility]tico[facility] [place], [facility] Tele[facility] Encounter - Stevo Thorne RN - 03/28/2021 11:19 AM CDT Detailed message left for Virgil informing of message below. Advised to call [facility] back with preferred plan or to MyChart PCP - whichever is most convenient. Rosmery Thorne RN [facility] Anticoagulation [facility] [place], [facility] Telephone Encounter - Froylan Louise MD [...] for him. Please advise. Rosmery Thorne RN [facility] Anticoagulation [facility] [place], [facility], [facility] documented in this encounter Plan of Treatment Upcoming Encounters Date Type Specialty Care Team Description 05/20/2022 Lab Lab documented as of this encounter Visit Diagnoses Not on filedocumented in this encounter Care Teams Maintenance And Custodian Supervisor Relationship Specialty Start Date End Date Froylan Louise MD PCP - General Family Practice 02/22/14 Froylan Louise MD Assigned PCP 03/13/14 2 Esthela Corea RN Personal Advocate & Liaison Family Medicine 10/16 (PAL) documented as of this encounter
--- OUTSIDE RECORDS SUMMARY | 2022-05-15 22:46 | XMS_ITS | Encounter Summary ---
:1955 Author Organization [place] Address [address] [place] [address] Care Team Providers Name Role Phone Froylan [...] you attend worship or Patient refused 2020 orthodoxy services? Do [...] filedocumented in this encounter Care Teams Clinical Social Work Aide Relationship Specialty Start Date End Date Froylan Louise MD PCP - General Family Practice 02/22/14 Froylan Louise MD Assigned PCP 03/13/14 2 Esthela Corea, RN Personal Advocate & Liaison Family Medicine 10/16 (PAL) documented as of this encounter
--- OUTSIDE RECORDS SUMMARY | 2022-05-15 22:46 | XMS_ITS | Encounter Summary ---
:1955 Author Organization [place] Address [address] [place] [address]. [place] [address] Care Team Providers Name Role Phone Froylan Louise MD Primary Care Provider Unavailable Froylan Louise MD Unavailable Unavailable Esthela Corea RN Unavailable Unavailable Encounter Details Date Type Department Care Team Description 03/08/2021 Anticoagulation [facility], Chronic deep vein thrombosis (DVT) of lower extremity, unspecified laterality, unspecified vein (H) (Primary Dx); Therapy Visit Anticoagulation Diana Conrad RN [facility] care current use of anticoagulant therapy Clinic [address] [place] [address] Social History Tobacco Use Types [...] 03/08/2021 4:29 PM CDT ANTICOAGULATION MANAGEMENT Virgil Christine 65 [...] for clotting signs and symptoms and Contact [phone] with any changes, questions or concerns. Plan made per [facility] anticoagulation protocol Diana Nielsen, CINDY Anticoagulation Clinic 03/08/2021 Anticoagulation Episode Summary Current INR goal: 2.0-3.0 TTR: 60.9 % (11.8 mo) Target end date: Indefinite Send INR reminders to: [facility] Indications Chronic deep vein thrombosis (DVT) of lower extremity unspecified laterality unspecified vein (H) [I82.509] Long-term (current) use of anticoagulants [Z79.01] [Z79.01] Comments: Anticoagulation Care Providers Provider Role Specialty Phone number Froylan Louise MD Referring Family Medicine [phone] documented in this encounter Plan of Treatment Upcoming Encounters Date Type Specialty Care Team Description 05/20/2022 Lab Lab documented as of this encounter Visit Diagnoses Diagnosis Chronic deep vein thrombosis (DVT) of lo wer extremity, unspecified laterality, unspecified vein (H) - 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
--- OUTSIDE RECORDS SUMMARY | 2022-05-15 22:46 | XMS_ITS | Encounter Summary ---
:1955 Author Organization [place] Address [address] [place] [address]. [place] [address] Care Team Providers Name Role Phone Froylan Louise MD Primary Care Provider Unavailable Froylan Louise MD Unavailable Unavailable Esthela Corea RN Unavailable Unavailable Encounter Details Date Type Department Care Team Description 03/01/2021 Anticoagulation [facility], Chronic deep vein thrombosis (DVT) of lower extremity, unspecified laterality, unspecified vein (H) (Primary Dx); Therapy Visit Anticoagulation Diana Conrad RN halfway current use of anticoagulant therapy Clinic [address] [place] [address] Social History Tobacco Use Types [...] you attend jain or Patient refused 2020 caodaism services? Do [...] attention/emergency care, Written instructions provided and Contact [phone] with any changes, questions or concerns. Plan made per [facility] anticoagulation protocol Diana Nielsen RN Anticoagulation Clinic 03/01/2021 Anticoagulation Episode Summary Current INR goal: 2.0-3.0 TTR: 62.1 % (11.8 mo) Target end date: Indefinite Send INR reminders to: [facility] Indications Chronic deep vein thrombosis (DVT) of lower extremity unspecified laterality unspecified vein (H) [I82.509] Long-term (current) use of anticoagulants [Z79.01] [Z79.01] Comments: Anticoagulation Care Providers Provider Role Specialty Phone number Froylan Louise MD Referring Family Medicine [phone] documented in this encounter Plan of Treatment Upcoming Encounters Date Type Specialty Care Team Description 05/20/2022 Lab Lab documented as of this encounter Visit Diagnoses Diagnosis Chronic deep vein thrombosis (DVT) of lo wer extremity, unspecified laterality, unspecified vein (H) - Primary public employment mediator current use of anticoagulant t herapy documented in this encounter Care Teams Inside Barrel Polisher Relationship Specialty Start Date End Date Froylan Louise MD PCP - General Family Practice 02/22/14 Froylan Louise MD Assigned PCP 03/13/14 2 Esthela Corea, RN Personal Advocate & Liaison Family Medicine 10/16 (PAL) documented as of this encounter
--- OUTSIDE RECORDS SUMMARY | 2022-05-15 22:46 | XMS_ITS | Encounter Summary ---
:1955 Author Organization [place] Address [address] [place] [address] Care Team Providers Name Role Phone Froylan Louise MD Primary Care Provider Unavailable Froylan Louise MD Unavailable Unavailable Esthela Corea RN Unavailable Unavailable Encounter Details Date Type Department Care Team Description 03/08/2021 [facility] Chr onic deep vein thrombosis (DVT) of lower extremity, unspecified laterality, unspecified vein (H); [facility] books binder current use of ant icoagulant therapy [address] [place] [address] Social History Tobacco Use [...] you attend denominational or Patient refused 2020 confucianism services? Do [...] City/State/ZIP Code Phon [place] Number [place] [address] Lab [address] [facility] Lab (no room number, 1st floor of clinic) [place] [address], [phone] [facility] [address] [facility] Lab (no room number, 1st floor of clinic) documented in this encounter Visit Diagnoses Diagnosis Chronic deep vein thrombosis (DVT) of lo wer extremity, unspecified laterality, unspecified vein (H) [facility] current use of anticoagulant t herapy documented in this encounter Care Teams Machine Operator Replanter Relationship Specialty Start Date End Date Froylan Louise MD PCP - General Family Practice 02/22/14 Froylan Louise MD Assigned PCP 03/13/14 2 Esthela Corea, RN Personal Advocate & Liaison Family Medicine 10/16 (PAL) documented as of this encounter
--- OUTSIDE RECORDS SUMMARY | 2022-05-15 22:46 | XMS_ITS | Encounter Summary ---
:1955 Author Organization [place] Address [address] [place] [address] Care Team Providers Name Role Phone Froylan Louise MD Primary Care Provider Unavailable Froylan Louise MD Unavailable Unavailable Esthela Corea RN Unavailable Unavailable Encounter Details Date Type Department Care Team Description 03/01/2021 [facility] Chr onic deep vein thrombosis (DVT) of lower extremity, unspecified laterality, unspecified vein (H); [facility] terminal carman current use of ant icoagulant therapy [address] [place] [address] Social History Tobacco [...] you attend buddhist or Patient refused 2020 faith services? Do [...] City/State/ZIP Code Phon [place] Number [place] [address] Lab [address] [facility] Lab (no room number, 1st floor of clinic) [place] [address], [facility] [address] [place] [facility] (no room number, 1st floor of clinic) documented in this encounter Visit Diagnoses Diagnosis Chronic deep vein thrombosis (DVT) of lo wer extremity, unspecified laterality, unspecified vein (H) terminal carman current use of anticoagulant t herapy documented in this encounter Care Teams Corset Maker Relationship Specialty Start Date End Date Froylan Louise MD PCP - General Family Practice 02/22/14 Froylan Louise MD Assigned PCP 03/13/14 2 Esthela Corea, RN Personal Advocate & Liaison Family Medicine 10/16 (PAL) documented as of this encounter
--- OUTSIDE RECORDS SUMMARY | 2022-05-15 22:46 | XMS_ITS | Encounter Summary ---
:1955 Author Organization [place] Address [address] [place] [address] Care Team Providers Name Role Phone Froylan Louise MD Primary Care Provider Unavailable Froylan Louise MD Unavailable Unavailable Esthela Corea RN Unavailable Unavailable Reason for Visit Reason Onset Date Comments Refill Request 04/20/2021 lisinopril-hydrochlo rothiazide (ZESTORETIC) 20-25 MG tablet Encounter Details Date Type Department Care Team Description 04/20/2021 Refill [facility] Froylan Louise Ra, Refill Request Chhaya VILLASEÑOR (lisinopril-hydrochlorot [address] [facility] hiazide (ZESTORETIC) [place] [address] 20-25 MG tablet) [phone] Social History Tobacco Use Types Packs/Day Years [...] you attend confucianist or Patient refused 2020 confucianist services? Do [...] benign documented in this encounter Care Teams Admin Secretary Relationship Specialty Start Date End Date Froylan Louise MD PCP - General Family Practice 02/22/14 Froylan Louise MD Assigned PCP 03/13/14 2 Esthela Corea, RN Personal Advocate & Liaison Family Medicine 10/16 (PAL) documented as of this encounter
--- OUTSIDE RECORDS SUMMARY | 2022-05-15 22:46 | XMS_ITS | Encounter Summary ---
:1955 Author Organization [place] Address [facility] [address] Care Team Providers Name Role Phone Froylan Louise MD Primary Care Provider Unavailable Froylan Louise MD Unavailable Unavailable Esthela Corea RN Unavailable Unavailable Reason for Visit Reason Onset Date Comments WOUND CARE 03/02/2021 Encounter Details Date Type Department Care Team Description 03/02/[address] [facility] Wound [place] Nuñez MD WOUND CARE Clinic [place] [address] [place] [address] [place] [address] [place] [address] [phone] Social History Tobacco Use Types Packs/Day Years [...] you attend alevism or Patient refused 2020 adventist services? Do [...] on filedocumented in this encounter Care Teams Assigner Relationship Specialty Start Date End Date Froylan Louise MD PCP - General Family Practice 02/22/14 Froylan Louise MD Assigned PCP 03/13/14 2 Esthela Corea RN Personal Advocate & Liaison Family Medicine 10/16 (PAL) documented as of this encounter
--- OUTSIDE RECORDS SUMMARY | 2022-05-15 22:46 | XMS_ITS | Encounter Summary ---
:1955 Author Organization [place] Address [address] [place] [address] Care Team Providers Name Role Phone Froylan [...] you attend mandaen or Patient refused 2020 mormonism services? Do [...] on filedocumented in this encounter Care Teams Dictating Machine Typist Relationship Specialty Start Date End Date Froylan Louise MD PCP - General Family Practice 02/22/14 Froylan Louise MD Assigned PCP 03/13/14 2 Esthela Corea, RN Personal Advocate & Liaison Family Medicine 10/16 (PAL) documented as of this encounter
--- OUTSIDE RECORDS SUMMARY | 2022-05-15 22:46 | XMS_ITS | Encounter Summary ---
:1955 Author Organization [place] Address [facility] [place] [address] Care Team Providers Name Role Phone Froylan Louise MD Primary Care Provider Unavailable Froylan Louise MD Unavailable Unavailable Esthela Corea RN Unavailable Unavailable Encounter Details Date Type Department Care Team Description 03/22/2021 [facility] deep vein thrombosis (DVT) of lower extremity, unspecified laterality, unspecified vein (H) (Primary Dx); Therapy Visit Anticoagulation Clin ic [place], [facility] current use of ant icoagulant therapy [address], [place] [address] Social History Tobacco Use Types [...] you attend orthodoxy or Patient refused 2020 anabaptism services? Do [...] you've been taking warfarin Plan made per [facility] anticoagulation protocol Stevo Thorne RN Anticoagulation Clinic 03/22/2021 Anticoagulation Episode Summary Current INR goal: 2.0-3.0 TTR: 60.9 % (11.8 mo) Target end date: Indefinite Send INR reminders to: [facility] Indications Chronic deep vein thrombosis (DVT) of lower extremity unspecified laterality unspecified vein (H) [I82.509] Long-term (current) use of anticoagulants [Z79.01] [Z79.01] Comments: Anticoagulation Care Providers Provider Role Specialty Phone number Froylan Louise MD Referring Family Medicine [phone] documented in this encounter Plan of Treatment Upcoming Encounters Date Type Specialty Care Team Description 05/20/2022 Lab Lab documented as of this encounter Visit Diagnoses Diagnosis Chronic deep vein thrombosis (DVT) of lo wer extremity, unspecified laterality, unspecified vein (H) - Primary [facility] current use of anticoagulant t herapy documented in this encounter Care Teams Court Abstractor Relationship Specialty Start Date End Date Froylan Louise MD PCP - General Family Practice 02/22/14 Froylan Louise MD Assigned PCP 03/13/14 2 Esthela Corea RN Personal Advocate & Liaison Family Medicine 10/16 (PAL) documented as of this encounter
--- OUTSIDE RECORDS SUMMARY | 2022-05-15 22:47 | XMS_ITS | Encounter Summary ---
:1955 Author Organization [place] Address [facility] [place] [address] Care Team Providers Name Role Phone Froylan Louise MD Primary Care Provider Unavailable Froylan Louise MD Unavailable Unavailable Esthela Corea RN Unavailable Unavailable Encounter Details Date Type Department Care Team Description 02/27/[address] [facility] Wound CecSeema busby, Clinic [facility] [address] [facility] Alicia [facility] [address] [place] [address] [place] [address] [phone] (Wo rk) Social History Tobacco Use Types [...] containing 4 or more times a w gambell 05/25/2021 alcohol? How many drinks containing alcohol [...] you attend pentecostalism or Patient refused 2020 religion services? Do [...] on filedocumented in this encounter Care Teams Vehicle Upholsterer Relationship Specialty Start Date End Date Froylan Louise MD PCP - General Family Practice 02/22/14 Froylan Louise MD Assigned PCP 03/13/14 2 Esthlea Corea, RN Personal Advocate & Liaison Family Medicine 10/16 (PAL) documented as of this encounter
--- OUTSIDE RECORDS SUMMARY | 2022-05-15 22:47 | XMS_ITS | Encounter Summary ---
:1955 Author Organization [place] Address [facility] [place] [address] Care Team Providers Name Role Phone Froylan Louise MD Primary Care Provider Unavailable Froylan Louise MD Unavailable Unavailable Esthela Corea RN Unavailable Unavailable Reason for Visit Reason Comments WOUND CARE Encounter Details Date Type Department Care Team Description 02/05/2021 Hospital Encounter [facility] Uriel Nuñez Op en knee wound, Wound Clinic Latesha Conrad MD left, initial [address] encounter [address] [place] [address] [place] [address] Social History Tobacco Use Types Packs/Day [...] you attend mosque or Patient refused 2020 sikhism services? Do [...] RN - 02/05/2021 3:30 PM CDT [facility] [address] [place] [address] Call us at [phone] if you have any questions about your [...] Diosmin 1 tablet twice daily order from [email or web address] or call [phone] Wound care recommendations to Left Knee After [...] on your patient satisfaction survey form that [facility] will be sending you. It was a [...] any billing related questions please call the [facility] office at [phone]. The clinic staff does not handle billing [...] proximal vein of both lower extremities (H), roasterman current use of anticoagulants with INR [...] 11/30/2021 (CHOLECALCIFEROL) 250 mcg by mouth every (38837 units) capsule morning warfarin ANTICOAGULANT TAKE 5MG [...] from the original note were not included. [facility] [place] Progress Note Subject: Virgil Christine status post incision, drainage, debridement, left knee hematoma January 15, 2021,current negative pressure wound VAC utilization with excellent outcomes, undermining and bridging between the knee wound and medial thigh wound has now been eliminated, remains on anticoagulant. Patient Active Problem List Diagnosis ??? Anticardiolipin antibody positive ??? Mild persistent asthma ??? Health Residential ? ? Hyperlipidemia LDL goal <130 ??? [...] encounter documented in this encounter Care Teams Displayer Relationship Specialty Start Date End Date Froylan Louise MD PCP - General Family Practice 02/22/14 Froylan Louise MD Assigned PCP 03/13/14 2 Esthela Corea, RN Personal Advocate & Liaison Family Medicine 10/16 (PAL) documented as of this encounter
--- OUTSIDE RECORDS SUMMARY | 2022-05-15 22:47 | XMS_ITS | Encounter Summary ---
:1955 Author Organization [place] Address [address] [place] [address] Care Team Providers Name Role Phone Froylan [...] you attend christianity or Patient refused 2020 baptism services? Do [...] on filedocumented in this encounter Care Teams Skip Tracer Relationship Specialty Start Date End Date Froylan Louise MD PCP - General Family Practice 02/22/14 Froylan Louise MD Assigned PCP 03/13/14 2 Esthela Corea, RN Personal Advocate & Liaison Family Medicine 10/16 (PAL) documented as of this encounter
--- OUTSIDE RECORDS SUMMARY | 2022-05-15 22:47 | XMS_ITS | Encounter Summary ---
:1955 Author Organization [place] Address [facility] [place] [address] Care Team Providers Name Role Phone Froylan Louise MD Primary Care Provider Unavailable Froylan Louise MD Unavailable Unavailable Esthela Corea RN Unavailable Unavailable Encounter Details Date Type Department Care Team Description 02/20/2021 Telephone [facility] [place] Nuñez MD [facility] [address] [place] [address] [place] [address] [place] [address] [phone] Social History Tobacco Use Types Packs/Day Years Used Date Smoking Tobacco: Former Cigarettes 2 25 Quit : 08/04/2006 Smokeless Tobacco: Never Comments: 2004 Alcohol Use Standard Drinks/Week Comments Yes 0 (1 standard drink = 0.6 oz pure alcoho l) 4 BEERS A day Alcohol Habits Answer Date Recorded How often do you have a drink containing 4 or more times a w augustine 05/25/2021 alcohol? How many drinks containing alcohol [...] you attend methodist or Patient refused 2020 amish services? Do [...] filedocumented in this encounter Care Teams Senior Data Integration Developer Relationship Specialty Start Date End Date Froylan Louise MD PCP - General Family Practice 02/22/14 Froylan Louise MD Assigned PCP 03/13/14 2 Esthela Corea RN Personal Advocate & Liaison Family Medicine 10/16 (PAL) documented as of this encounter
--- OUTSIDE RECORDS SUMMARY | 2022-05-15 22:47 | XMS_ITS | Encounter Summary ---
:1955 Author Organization [place] Address [address] [place] [address] Care Team Providers Name Role Phone Froylan Louise MD Primary Care Provider Unavailable Froylan Louise MD Unavailable Unavailable Esthela Corea RN Unavailable Unavailable Encounter Details Date Type Department Care Team Description 02/05/2021 [facility] Chr onic deep vein thrombosis (DVT) of lower extremity, unspecified laterality, unspecified vein (H); [facility] wheel alignment technician current use of ant icoagulant therapy [address] [place] [address] Social History Tobacco Use [...] you attend adventist or Patient refused 2020 hinduism services? Do [...] Address City/State/ZIP Code Phon e Number [place] [address] Lab [address] [facility] Lab (no room number, 1st floor of clinic) [place] [address], [phone] [facility] [address] [facility] (no room number, 1st floor of clinic) documented in this encounter Visit Diagnoses Diagnosis Chronic deep vein thrombosis (DVT) of lo wer extremity, unspecified laterality, unspecified vein (H) alf current use of anticoagulant t herapy documented in this encounter Care Teams Msws Relationship Specialty Start Date End Date Froylan Louise MD PCP - General Family Practice 02/22/14 Froylan Louise MD Assigned PCP 03/13/14 2 Esthela Corea RN Personal Advocate & Liaison Family Medicine 10/16 (PAL) documented as of this encounter
--- OUTSIDE RECORDS SUMMARY | 2022-05-15 22:47 | XMS_ITS | Encounter Summary ---
:1955 Author Organization [place] Address [address] [place] [address]. [place] [address] Care Team Providers Name Role Phone Froylan Louise MD Primary Care Provider Unavailable Froylan Louise MD Unavailable Unavailable Esthela Corea RN Unavailable Unavailable Encounter Details Date Type Department Care Team Description 01/29/2021 Anticoagulation [facility], Chronic deep vein thrombosis (DVT) of lower extremity, unspecified laterality, unspecified vein (H) (Primary Dx); Therapy Visit Anticoagulation Diana Conrad RN [place] current use of anticoagulant therapy Clinic [address] [place] [address] Social History Tobacco Use Types [...] 4 or more times a w [place] 05/25/2021 alcohol? How many drinks containing [...] you attend cheondoism or Patient refused 2020 yarsani services? 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
--- OUTSIDE RECORDS SUMMARY | 2022-05-15 22:47 | XMS_ITS | Encounter Summary ---
:1955 Author Organization [place] Address [facility] [place] [address] Care Team Providers Name Role Phone Froylan Louise MD Primary Care Provider Unavailable Froylan Louise MD Unavailable Unavailable Esthela Corea RN Unavailable Unavailable Encounter Details Date Type Department Care Team Description [facility] (DVT) of lower extremity, unspecified laterality, unspecified vein (H) (Primary Dx); Therapy Visit Anticoagulation Clin ic [place], [facility] current use of ant icoagulant therapy [address], [place] [address] Social History Tobacco Use Types [...] you attend anabaptism or Patient refused 2020 orthodox services? Do [...] you've been taking warfarin Plan made per [facility] anticoagulation protocol Stevo Thorne RN Anticoagulation Clinic 02/16/2021 Anticoagulation Episode Summary Current INR goal: 2.0-3.0 TTR: 65.3 % (11.8 mo) Target end date: Indefinite Send INR reminders to: [facility] Indications Chronic deep vein thrombosis (DVT) of lower extremity unspecified laterality unspecified vein (H) [I82.509] Long-term (current) use of anticoagulants [Z79.01] [Z79.01] Comments: Anticoagulation Care Providers Provider Role Specialty Phone number Froylan Louise MD Referring Family Medicine [phone] documented in this encounter Plan of Treatment Upcoming Encounters Date Type Specialty Care Team Description 05/20/2022 Lab Lab documented as of this encounter Visit Diagnoses Diagnosis Chronic deep vein thrombosis (DVT) of lo wer extremity, unspecified laterality, unspecified vein (H) - Primary [facility] current use of anticoagulant t herapy documented in this encounter Care Teams Respite Care Provider Relationship Specialty Start Date End Date Froylan Louise MD PCP - General Family Practice 02/22/14 Froylan Louise MD Assigned PCP 03/13/14 2 Esthela Corea RN Personal Advocate & Liaison Family Medicine 10/16 (PAL) documented as of this encounter
--- OUTSIDE RECORDS SUMMARY | 2022-05-15 22:47 | XMS_ITS | Encounter Summary ---
:1955 Author Organization [place] Address [address] [place] [address] Care Team Providers Name Role Phone Froylan [...] containing 4 or more times a w hopi 05/25/2021 alcohol? How many drinks containing alcohol [...] attend roman catholic or Patient refused 2020 sabianism services? Do [...] on filedocumented in this encounter Care Teams Slip Laster Relationship Specialty Start Date End Date Froylan Louise MD PCP - General Family Practice 02/22/14 Froylan Louise MD Assigned PCP 03/13/14 2 Esthela Corea, RN Personal Advocate & Liaison Family Medicine 10/16 (PAL) documented as of this encounter
--- OUTSIDE RECORDS SUMMARY | 2022-05-15 22:47 | XMS_ITS | Encounter Summary ---
:1955 Author Organization [place] Address [address] [place] [address] Care Team Providers Name Role Phone Froylan [...] you attend synagogue or Patient refused 2020 methodist services? Do [...] on filedocumented in this encounter Care Teams Cloth Colorer Relationship Specialty Start Date End Date Froylan Louise MD PCP - General Family Practice 02/22/14 Froylan Louise MD Assigned PCP 03/13/14 2 Esthela Corea, RN Personal Advocate & Liaison Family Medicine 10/16 (PAL) documented as of this encounter
--- OUTSIDE RECORDS SUMMARY | 2022-05-15 22:47 | XMS_ITS | Encounter Summary ---
:1955 Author Organization [place] Address [address] [place] [address] Care Team Providers Name Role Phone Froylan Louise MD Primary Care Provider Unavailable Froylan Louise MD Unavailable Unavailable Esthela Corea RN Unavailable Unavailable Reason for Visit Reason Comments Medication Refill Encounter Details Date Type Department Care Team Description 02/02/2021 Refill [facility] Froylan Louise Ra, MD Medication Refill [address] [address] Social History Tobacco Use [...] you attend anabaptism or Patient refused 2020 anglican services? Do [...] asthma documented in this encounter Care Teams Contract Modeler Relationship Specialty Start Date End Date Froylan Louise MD PCP - General Family Practice 02/22/14 Froylan Louise MD Assigned PCP 03/13/14 2 Esthela Corea RN Personal Advocate & Liaison Family Medicine 10/16 (PAL) documented as of this encounter
--- OUTSIDE RECORDS SUMMARY | 2022-05-15 22:47 | XMS_ITS | Encounter Summary ---
:1955 Author Organization [place] Address [address] [place] [address]. [place] [address] Care Team Providers Name Role Phone Froylan Louise MD Primary Care Provider Unavailable Froylan Louise MD Unavailable Unavailable Esthela Corea RN Unavailable Unavailable Encounter Details Date Type Department Care Team Description 02/05/[address] [facility], Chronic deep vein thrombosis (DVT) of lower extremity, unspecified laterality, unspecified vein (H) (Primary Dx); Therapy Visit Anticoagulation Diana Conrad RN airport duty manager current use of anticoagulant therapy Clinic [address] [place] [address] Social History Tobacco Use Types [...] containing 4 or more times a w native 05/25/2021 alcohol? How many drinks containing alcohol [...] you attend scientologist or Patient refused 2020 latter day services? [...] warfarin, 2.5 mg tonight. and to call [facility] RN at [phone] Anticoagulation clinic to follow up Diana Nielsen [...] inflammation, with wound vac. Plan made per [facility] anticoagulation protocol Diana Nielsen RN Anticoagulation Clinic 02/06/2021 Anticoagulation Episode Summary Current INR goal: 2.0-3.0 TTR: 66.6 % (11.8 mo) Target end date: Indefinite Send INR reminders to: [facility] Indications Chronic deep vein thrombosis (DVT) of lower extremity unspecified laterality unspecified vein (H) [I82.509] Long-term (current) use of anticoagulants [Z79.01] [Z79.01] Comments: Anticoagulation Care Providers Provider Role Specialty Phone number Froylan Louise MD Referring Family Medicine [phone] documented in this encounter Plan of Treatment Upcoming Encounters Date Type Specialty Care Team Description 05/20/2022 Lab Lab documented as of this encounter Visit Diagnoses Diagnosis Chronic deep vein thrombosis (DVT) of lo wer extremity, unspecified laterality, unspecified vein (H) - Primary airport duty manager current use of anticoagulant t herapy documented in this encounter Care Teams Machine I Trimmer Relationship Specialty Start Date End Date Froylan Louise MD PCP - General Family Practice 02/22/14 Froylan Louise MD Assigned PCP 03/13/14 2 Esthela Corea RN Personal Advocate & Liaison Family Medicine 10/16 (PAL) documented as of this encounter
--- OUTSIDE RECORDS SUMMARY | 2022-05-15 22:47 | XMS_ITS | Encounter Summary ---
:1955 Author Organization [place] Address [facility] [place] [address] Care Team Providers Name Role Phone Froylan Louise MD Primary Care Provider Unavailable Froylan Louise MD Unavailable Unavailable Estheal Corea RN Unavailable Unavailable Reason for Visit Reason Comments WOUND CARE Encounter Details Date Type Department Care Team Description 02/20/2021 Hospital Encounter [facility] Uriel Nuñez en knee wound, Wound Clinic Latesha Conrad MD left, initial [address] encounter (Primary [address]) [place] [address] Social History Tobacco Use Types Packs/Day Years Used Date Smoking Tobacco: Former Cigarettes 2 25 Quit : 08/04/2006 Smokeless Tobacco: Never Comments: 2004 Alcohol Use Standard Drinks/Week Comments Yes 0 (1 standard drink = 0.6 oz pure alcoho l) 4 BEERS A day Alcohol Habits Answer Date Recorded How often do you have a drink containing 4 or more times a w [place] 05/25/2021 alcohol? How many drinks containing alcohol [...] you attend sabianism or Patient refused 2020 mandaen services? Do [...] Ro RN - 02/20/2021 2:05 PM CDT [facility] [address] [place] [phone] Call us at [phone] if you have any questions about your [...] Diosmin 1 tablet twice daily order from [email or web address] or call [phone] Wound care recommendations to Right Knee After [...] on your patient satisfaction survey form that [facility] will be sending you. It [...] any billing related questions please call the [facility] Business office at [phone]. The clinic staff does not handle billing [...] proximal vein of both lower extremities (H), [facility] current use of anticoagulants with INR [...] 11/30/2021 (CHOLECALCIFEROL) 250 mcg by mouth every (29683 units) capsule morning warfarin ANTICOAGULANT TAKE 5MG [...] from the original note were not included. [facility] [place] Progress Note Subject: Virgil Christine status post debridement hematoma left knee, subsequent negative pressure woundtherapy utilization. Anticoagulation. Initial wound was traumatically induced after fall onto left knee. Patient Active Problem List Diagnosis ??? Anticardiolipin antibody positive ??? Mild persistent asthma ??? Health Nursing Home ? ? Hyperlipidemia LDL goal <130 [...] Primary documented in this encounter Care Teams Research Subject Relationship Specialty Start Date End Date Froylan Louise MD PCP - General Family Practice 02/22/14 Froylan Louise MD Assigned PCP 03/13/14 2 Esthela Corea RN Personal Advocate & Liaison Family Medicine 10/16 (PAL) documented as of this encounter
--- OUTSIDE RECORDS SUMMARY | 2022-05-15 22:47 | XMS_ITS | Encounter Summary ---
:1955 Author Organization [place] Address [address] [place] [address] Care Team Providers Name Role Phone Froylan Louise MD Primary Care Provider Unavailable Froylan Louise MD Unavailable Unavailable Esthela Corea RN Unavailable Unavailable Reason for Visit Reason Comments Medication Refill Encounter Details Date Type Department Care Team Description 02/17/2021 Refill [facility] Froylan Louise Ra, MD Medication Refill [address] [phone] Social History Tobacco Use [...] you attend jewish or Patient refused 2020 sikh services? Do [...] unspecified documented in this encounter Care Teams Psychiatric Specialist Relationship Specialty Start Date End Date Froylan Louise MD PCP - General Family Practice 02/22/14 Froylan Louise MD Assigned PCP 03/13/14 2 Esthela Corea, RN Personal Advocate & Liaison Family Medicine 10/16 (PAL) documented as of this encounter
--- OUTSIDE RECORDS SUMMARY | 2022-05-15 22:47 | XMS_ITS | Encounter Summary ---
:1955 Author Organization [place] Address [address] [place] [address] Care Team Providers Name Role Phone Froylan Louise MD Primary Care Provider Unavailable Froylan Louise MD Unavailable Unavailable Esthela Corea RN Unavailable Unavailable Reason for Visit Reason Comments Medication Refill Encounter Details Date Type Department Care Team Description 02/19/2021 Refill [facility] Froylan Louise Ra, MD Medication Refill [address] [phone] Social History Tobacco Use [...] you attend mormonism or Patient refused 2020 amish services? Do [...] 02/19/2021 5:48 PM CDT Prescription approved per [facility] Refill Protocol. Anival Phillip RN documented in this encounter Plan of Treatment Upcoming Encounters Date Type Specialty Care Team Description 05/20/2022 Lab Lab documented as of this encounter Visit Diagnoses Diagnosis Mild persistent asthma, uncomplicated Unspecified asthma documented in this encounter Care Teams Flavoring Machine Operator Relationship Specialty Start Date End Date Froylan Louise MD PCP - General Family Practice 02/22/14 Froylan Louise MD Assigned PCP 03/13/14 2 Esthela Corea RN Personal Advocate & Liaison Family Medicine 10/16 (PAL) documented as of this encounter
--- OUTSIDE RECORDS SUMMARY | 2022-05-15 22:47 | XMS_ITS | Encounter Summary ---
:1955 Author Organization [place] Address [address] [place] [address] Care Team Providers Name Role Phone Froylan [...] you attend episcopalian or Patient refused 2020 confucianist services? Do [...] on filedocumented in this encounter Care Teams Academic Records Specialist Relationship Specialty Start Date End Date Froylan Louise MD PCP - General Family Practice 02/22/14 Froylan Louise MD Assigned PCP 03/13/14 2 Esthela Corea, RN Personal Advocate & Liaison Family Medicine 10/16 (PAL) documented as of this encounter
--- OUTSIDE RECORDS SUMMARY | 2022-05-15 22:47 | XMS_ITS | Encounter Summary ---
:1955 Author Organization [place] Address [facility] [place] [address] Care Team Providers Name Role Phone Froylan Louise MD Primary Care Provider Unavailable Froylan Louise MD Unavailable Unavailable Esthela Corea RN Unavailable Unavailable Reason for Visit Reason Comments WOUND CARE Encounter Details Date Type Department Care Team Description 02/02/2021 Hospital Encounter [facility] Uriel Nuñez Op en knee wound, Wound Clinic Latesha Conrad MD left, initial [address] encounter [address] [place] [phone] Social History Tobacco Use Types Packs/Day [...] you attend nondenominational or Patient refused 2020 evangelical services? Do [...] 1000 MCG tablet by mouth every morning Eufgkujneed-Mbufwgkir-Rzdtz Inhale 1 puff 0 02/05/2021 terol (TRELEGY [...] 11/30/2021 (CHOLECALCIFEROL) 250 mcg by mouth every (53658 units) capsule morning warfarin ANTICOAGULANT TAKE 5MG [...] from the original note were not included. [facility] [place] Nurse Note Subject: Virgil Christine presents for [...] encounter documented in this encounter Care Teams Retirement Sales Consultant Relationship Specialty Start Date End Date Froylan Louise MD PCP - General Family Practice 02/22/14 Froylan Louise MD Assigned PCP 03/13/14 2 Esthela Corea RN Personal Advocate & Liaison Family Medicine 10/16 (PAL) documented as of this encounter
--- OUTSIDE RECORDS SUMMARY | 2022-05-15 22:47 | XMS_ITS | Encounter Summary ---
:1955 Author Organization [place] Address [address] [place] [address] Care Team Providers Name Role Phone Froylan Louise MD Primary Care Provider Unavailable Froylan Louise MD Unavailable Unavailable Esthela Corea RN Unavailable Unavailable Encounter Details Date Type Department Care Team Description 02/16/2021 [facility] Chr onic deep vein thrombosis (DVT) of lower extremity, unspecified laterality, unspecified vein (H); [facility] buttermaker continuous churn current use of ant icoagulant therapy [address] [place] [address] Social History Tobacco Use [...] you attend yarsanism or Patient refused 2020 sabianist services? Do [...] results unspecified section. laterality, unspecified vein (H) [facility] current use of anticoagulant therapy documented in [...] Address City/State/ZIP Code [place] [address] Lab [address] [facility] Lab (no room number, 1st floor of clinic) [place] [address], [phone] [facility] [address] [facility] (no room number, 1st floor of clinic) documented in this encounter Visit Diagnoses Diagnosis Chronic deep vein thrombosis (DVT) of lo wer extremity, unspecified laterality, unspecified vein (H) buttermaker continuous churn current use of anticoagulant t herapy documented in this encounter Care Teams Picture Copyist Relationship Specialty Start Date End Date Froylan Louise MD PCP - General Family Practice 02/22/14 Froylan Louise MD Assigned PCP 03/13/14 2 Esthela Corea RN Personal Advocate & Liaison Family Medicine 10/16 (PAL) documented as of this encounter
--- OUTSIDE RECORDS SUMMARY | 2022-05-15 22:47 | XMS_ITS | Encounter Summary ---
:1955 Author Organization [place] Address [address] [place] [address] Care Team Providers Name Role Phone Froylan [...] you attend hinduism or Patient refused 2020 methodist services? Do [...] on filedocumented in this encounter Care Teams Studio Sales Associate Relationship Specialty Start Date End Date Froylan Louise MD PCP - General Family Practice 02/22/14 Froylan Louise MD Assigned PCP 03/13/14 2 Esthela Corea, RN Personal Advocate & Liaison Family Medicine 10/16 (PAL) documented as of this encounter
--- OUTSIDE RECORDS SUMMARY | 2022-05-15 22:47 | XMS_ITS | Encounter Summary ---
:1955 Author Organization [place] Address [facility] [place] [address] Care Team Providers Name Role Phone Froylan Louise MD Primary Care Provider Unavailable Froylan Louise MD Unavailable Unavailable Esthela Corea RN Unavailable Unavailable Reason for Visit Reason Comments WOUND CARE Encounter Details Date Type Department Care Team Description 02/09/2021 Hospital Encounter [facility] Uriel Nuñez Op en knee wound, Wound Clinic Latesha Conrad MD left, initial [address] encounter [address] [place] [phone] Social History Tobacco Use Types Packs/Day [...] you attend anabaptist or Patient refused 2020 rastafarian services? Do [...] from the original note were not included. [facility] [address] [place] [phone] Call us at [phone] if you have any questions about your [...] Diosmin 1 tablet twice daily order from [email or web address] or call [phone] Wound care recommendations to Left Knee After [...] on your patient satisfaction survey form that [facility] will be sending you. If you have any billing related questions please call the [facility] Business office at [phone]. The clinic staff does not handle billing [...] proximal vein of both lower extremities (H), retirement current use of anticoagulants with INR [...] 11/30/2021 (CHOLECALCIFEROL) 250 mcg by mouth every (89836 units) capsule morning warfarin ANTICOAGULANT TAKE 5MG [...] from the original note were not included. [facility] [place] Nurse Note Subject: Virgil Goldbergci presents for [...] encounter documented in this encounter Care Teams Addiction Psychiatrist Relationship Specialty Start Date End Date Froylan Louise MD PCP - General Family Practice 02/22/14 Froylan Louise MD Assigned PCP 03/13/14 2 Esthela Corea, RN Personal Advocate & Liaison Family Medicine 10/16 (PAL) documented as of this encounter
--- OUTSIDE RECORDS SUMMARY | 2022-05-15 22:47 | XMS_ITS | Encounter Summary ---
:1955 Author Organization [place] Address [address] [place] [address] Care Team Providers Name Role Phone Froylan [...] 4 or more times a w [place] 05/25/2021 alcohol? How many drinks containing [...] filedocumented in this encounter Care Teams Supervisor Bakery Sanitation Relationship Specialty Start Date End Date Froylan Louise MD PCP - General Family Practice 02/22/14 Froylan Louise MD Assigned PCP 03/13/14 2 Esthela Corea, RN Personal Advocate & Liaison Family Medicine 10/16 (PAL) documented as of this encounter
--- OUTSIDE RECORDS SUMMARY | 2022-05-15 22:47 | XMS_ITS | Encounter Summary ---
:1955 Author Organization [place] Address [facility] [place] [address] Care Team Providers Name Role Phone Froylan Louise MD Primary Care Provider Unavailable Froylan Louise MD Unavailable Unavailable Esthela Corea RN Unavailable Unavailable Encounter Details Date Type Department Care Team Description 02/22/[address] [facility] Nuñez MD [facility] [address] [place] [address] [place] [address] [phone] Social History Tobacco Use Types Packs/Day Years Used Date Smoking Tobacco: Former Cigarettes 2 25 Quit : 08/04/2006 Smokeless Tobacco: Never Comments: 2004 Alcohol Use Standard Drinks/Week Comments Yes 0 (1 standard drink = 0.6 oz pure alcoho l) 4 BEERS A day Alcohol Habits Answer Date Recorded How often do you have a drink containing 4 or more times a w [place] 05/25/2021 alcohol? How many drinks containing alcohol [...] you attend taoist or Patient refused 2020 pentecostalism services? Do [...] Nicolas Ford - 02/22/2021 12:09 PM CDT [facility] Who is the name of the provider?: [...] on filedocumented in this encounter Care Teams Computer Operations Manager Relationship Specialty Start Date End Date Froylan Louise MD PCP - General Family Practice 02/22/14 Froylan Louise MD Assigned PCP 03/13/14 2 Esthela Corea, RN Personal Advocate & Liaison Family Medicine 10/16 (PAL) documented as of this encounter
--- OUTSIDE RECORDS SUMMARY | 2022-05-15 22:47 | XMS_ITS | Encounter Summary ---
:1955 Author Organization [place] Address [facility] [place] [address] Care Team Providers Name Role Phone Froylan Louise MD Primary Care Provider Unavailable Froylan Louise MD Unavailable Unavailable Esthela Corea RN Unavailable Unavailable Reason for Visit Reason Comments WOUND CARE Encounter Details Date Type Department Care Team Description 02/16/2021 Hospital Encounter [facility] Uriel Nuñez Op en knee wound, Wound Clinic Latesha Conrad MD left, initial [address] encounter [address] [place] [phone] Social History Tobacco Use Types Packs/Day [...] you attend uatsdin or Patient refused 2020 bahai services? Do [...] from the original note were not included. [facility] [address] [place] [address] Call us at [phone] if you have any questions about your [...] on your patient satisfaction survey form that [facility] will be sending you. If you have any billing related questions please call the [facility] Business office at [phone]. The clinic staff does not handle billing [...] 11/30/2021 (CHOLECALCIFEROL) 250 mcg by mouth every (73195 units) capsule morning warfarin ANTICOAGULANT TAKE 5MG [...] not included. [facility] [place] Nurse Note Subject: Virgil Christine presents for [...] encounter documented in this encounter Care Teams Date Pitter Relationship Specialty Start Date End Date Froylan Louise MD PCP - General Family Practice 02/22/14 Froylan Louise MD Assigned PCP 03/13/14 2 Esthela Corea RN Personal Advocate & Liaison Family Medicine 10/16 (PAL) documented as of this encounter
--- OUTSIDE RECORDS SUMMARY | 2022-05-15 22:47 | XMS_ITS | Encounter Summary ---
:1955 Author Organization [place] Address [address] [place] [address] Care Team Providers Name Role Phone Froylan Louise MD Primary Care Provider Unavailable Froylan Louise MD Unavailable Unavailable Esthela Corea RN Unavailable Unavailable Reason for Visit Reason Comments Medication Refill Encounter Details Date Type Department Care Team Description 02/23/2021 Refill [facility] Froylan Louise Ra, MD Medication Refill [address] [phone] Social History Tobacco [...] you attend mosque or Patient refused 2020 methodist services? Do [...] type documented in this encounter Care Teams Forestry Biology Specialist Relationship Specialty Start Date End Date Froylan Louise MD PCP - General Family Practice 02/22/14 Froylan Louise MD Assigned PCP 03/13/14 2 Esthela Corea, RN Personal Advocate & Liaison Family Medicine 10/16 (PAL) documented as of this encounter
--- OUTSIDE RECORDS SUMMARY | 2022-05-15 22:47 | XMS_ITS | Encounter Summary ---
:1955 Author Organization [place] Address [facility] [place] [address] Care Team Providers Name Role Phone Froylan Louise MD Primary Care Provider Unavailable Froylan Louise MD Unavailable Unavailable Esthela Corea RN Unavailable Unavailable Reason for Visit Reason Comments WOUND CARE Encounter Details Date Type Department Care Team Description 02/13/2021 Hospital Encounter [facility] Jayesh Mac Open knee wound, Wound Clinic Latesha Viveros PA-C left, initial [address] WOUND HEALING encounter [address] [place], [place] [address] [phone] [place], [place] [id number] Social History Tobacco Use Types Packs/Day Years [...] you attend jain or Patient refused 2020 methodist services? Do [...] from the original note were not included. [facility] [address] [place] [phone] Call us at [phone] if you have any questions about your [...] any billing related questions please call the [facility] Business office at [phone]. The clinic staff does not handle billing [...] 11/30/2021 (CHOLECALCIFEROL) 250 mcg by mouth every (69150 units) capsule morning warfarin ANTICOAGULANT TAKE 5MG [...] from the original note were not included. [facility] ASSESSMENT: 1. Full-thickness wound [...] he has remained on. Works as a [employer] He also likes to bike. Typically wears [...] encounter documented in this encounter Care Teams Programming Development Project Manager Relationship Specialty Start Date End Date Froylan Louise MD PCP - General Family Practice 02/22/14 Froylan Louise MD Assigned PCP 03/13/14 2 Esthela Corea, RN Personal Advocate & Liaison Family Medicine 10/16 (PAL) documented as of this encounter
--- OUTSIDE RECORDS SUMMARY | 2022-05-15 22:48 | XMS_ITS | Encounter Summary ---
:1955 Author Organization [place] Address [address] [place] [address] Care Team Providers Name Role Phone Froylan Louise MD Primary Care Provider Unavailable Froylan Louise MD Unavailable Unavailable Esthela Corea RN Unavailable Unavailable Reason for Visit Reason Onset Date Comments Anticoagulation 01/19/2021 Encounter Details Date Type Department Care Team Description 01/19/2021 Telephone [facility] Froylan Louise Ra, MD [address] [phone] Social History Tobacco [...] you attend anglican or Patient refused 2020 gnosticism services? Do [...] unspecified laterality, unspecified vein (H) - Primary half-way current use of anticoagulant t herapy documented in this encounter Care Teams Gasoline Tractor Operator Relationship Specialty Start Date End Date Froylan Louise MD PCP - General Family Practice 02/22/14 Froylan Louise MD Assigned PCP 03/13/14 2 Esthela Corea RN Personal Advocate & Liaison Family Medicine 10/16 (PAL) documented as of this encounter
--- OUTSIDE RECORDS SUMMARY | 2022-05-15 22:48 | XMS_ITS | Encounter Summary ---
:1955 Author Organization [place] Address [address] [place] [address] Care Team Providers Name Role Phone Froylan [...] you attend confucianism or Patient refused 2020 latter day services? [...] on filedocumented in this encounter Care Teams Stationary Fireman Relationship Specialty Start Date End Date Froylan Louise MD PCP - General Family Practice 02/22/14 Froylan Louise MD Assigned PCP 03/13/14 2 Esthela Corea, RN Personal Advocate & Liaison Family Medicine 10/16 (PAL) documented as of this encounter
--- OUTSIDE RECORDS SUMMARY | 2022-05-15 22:48 | XMS_ITS | Encounter Summary ---
:1955 Author Organization [place] Address [address] [place] [address] Care Team Providers Name Role Phone Froylan [...] you attend jew or Patient refused 2020 congregational services? Do [...] on filedocumented in this encounter Care Teams Recreation Attendant Supervisor Relationship Specialty Start Date End Date Froylan Louise MD PCP - General Family Practice 02/22/14 Froylan Louise MD Assigned PCP 03/13/14 2 Esthela Corea, RN Personal Advocate & Liaison Family Medicine 10/16 (PAL) documented as of this encounter
--- OUTSIDE RECORDS SUMMARY | 2022-05-15 22:48 | XMS_ITS | Encounter Summary ---
:1955 Author Organization [place] Address [address] [place] [address]. [place] [address] Care Team Providers Name Role Phone Froylan Louise MD Primary Care Provider Unavailable Froylan Louise MD Unavailable Unavailable Esthela Corea RN Unavailable Unavailable Encounter Details Date Type Department Care Team Description 01/26/[address] [facility], Chronic deep vein thrombosis (DVT) of lower extremity, unspecified laterality, unspecified vein (H) (Primary Dx); Therapy Visit Anticoagulation Diana Conrad RN longterm current use of anticoagulant therapy Clinic [address] [place] [address] Social History Tobacco Use Types [...] you attend zoroastrian or Patient refused 2020 hoahaoism services? Do [...] 2.3 or INR >= 2.0 x 2 ([facility] protocol goal INR 2-3) PLAN Recommended plan [...] seek medical attention/emergency care Plan made with [facility] Pharmacist Susanna Nielsen RN Anticoagulation Clinic 01/26/2021 Anticoagulation Episode Summary Current INR goal: 2.0-3.0 TTR: 69.6 % (11.8 mo) Target end date: Indefinite Send INR reminders to: [facility] Indications Chronic deep vein thrombosis (DVT) of lower extremity unspecified laterality unspecified vein (H) [I82.509] Long-term (current) use of anticoagulants [Z79.01] [Z79.01] Comments: Anticoagulation Care Providers Provider Role Specialty Phone number Froylan Louise MD Referring Family Medicine [phone] Associated attestation - Susanna Mendoza RPH - [...] laterality, unspecified vein (H) - Primary termite inspector current use of anticoagulant t herapy documented in this encounter Care Teams Examination Scorer Relationship Specialty Start Date End Date Froylan Louise MD PCP - General Family Practice 02/22/14 Froylan Louise MD Assigned PCP 03/13/14 2 Esthela Corea RN Personal Advocate & Liaison Family Medicine 10/16 (PAL) documented as of this encounter
--- OUTSIDE RECORDS SUMMARY | 2022-05-15 22:48 | XMS_ITS | Encounter Summary ---
:1955 Author Organization [place] Address Counts include 234 beds at the [facility] [place] [address] Care Team Providers Name Role Phone Froylan Louise MD Primary Care Provider Unavailable Froylan Louise MD Unavailable Unavailable Esthela Corea RN Unavailable Unavailable Reason for Visit Reason Comments WOUND CARE Encounter Details Date Type Department Care Team Description 01/23/2021 Hospital Encounter [facility] Uriel Nuñez Op en knee wound, Wound Clinic Latesha Conrad MD left, initial [address] encounter [address] [place] [address] Social History Tobacco Use Types Packs/Day [...] freed RN - 01/23/2021 1:11 PM CDT [facility] [address] [place] [address] Call us at [phone] if you have any questions about your [...] Diosmin 1 tablet twice daily order from [email or web address] or call [phone] Wound care recommendations to Left Knee After [...] on your patient satisfaction survey form that [facility] will be sending you. It was a [...] billing related questions please call the [facility] Business office at [phone]. The clinic staff does not handle billing [...] proximal vein of both lower extremities (H), terminal carman current use of anticoagulants with [...] 1000 MCG tablet by mouth every morning Vflblwglrxs-Covrtmzat-Hdhab Inhale 1 puff 0 02/05/2021 terol (TRELEGY [...] 11/30/2021 (CHOLECALCIFEROL) 250 mcg by mouth every (62642 units) capsule morning warfarin ANTICOAGULANT TAKE 5MG [...] from the original note were not included. [facility] [place] Progress Note Subject: Virgil Christine status post incision drainage left knee hematoma, treatment with VAC vera flow, transition to standard VAC, denies fevers chills sweats. Patient Active Problem List Diagnosis ??? Anticardiolipin antibody positive ??? Mild persistent asthma ??? [facility] ? ? Hyperlipidemia LDL goal <130 ??? [...] encounter documented in this encounter Care Teams Carroter Relationship Specialty Start Date End Date Froylan Louise MD PCP - General Family Practice 02/22/14 Froylan Louise MD Assigned PCP 03/13/14 2 Esthela Corea, RN Personal Advocate & Liaison Family Medicine 10/16 (PAL) documented as of this encounter
--- OUTSIDE RECORDS SUMMARY | 2022-05-15 22:48 | XMS_ITS | Encounter Summary ---
:1955 Author Organization [place] Address [address] [place] [address]. [place] [address] Care Team Providers Name Role Phone Froylan Louise MD Primary Care Provider Unavailable Froylan Louise MD Unavailable Unavailable Esthela Corea RN Unavailable Unavailable Encounter Details Date Type Department Care Team Description 01/22/2021 Anticoagulation [facility], Chronic deep vein thrombosis (DVT) of lower extremity, unspecified laterality, unspecified vein (H) (Primary Dx); Therapy Visit Anticoagulation Diana Conrad RN [facility] current use of anticoagulant therapy Clinic [address] [place] [address] Social History Tobacco Use Types [...] you attend christianity or Patient refused 2020 congregation services? Do [...] seek medical attention/emergency care Plan made with [facility] Pharmacist Susanna Nielsen RN Anticoagulation Clinic 01/22/2021 Anticoagulation Episode Summary Current INR goal: 2.0-3.0 TTR: 70.1 % (11.8 mo) Target end date: Indefinite Send [facility]ers to: [facility] Indications Chronic deep vein thrombosis (DVT) of lower extremity unspecified laterality unspecified vein (H) [I82.509] Long-term (current) use of anticoagulants [Z79.01] [Z79.01] Comments: Anticoagulation Care Providers Provider Role Specialty Phone number Froylan Louise MD Referring Family Medicine [phone] Associated attestation - Susanna Mendoza RPH - [...] herapy documented in this encounter Care Teams Mixer Tender Relationship Specialty Start Date End Date Froylan Louise MD PCP - General Family Practice 02/22/14 Froylan Louise MD Assigned PCP 03/13/14 2 Esthela Corea RN Personal Advocate & Liaison Family Medicine 10/16 (PAL) documented as of this encounter
--- OUTSIDE RECORDS SUMMARY | 2022-05-15 22:48 | XMS_ITS | Encounter Summary ---
:1955 Author Organization [place] Address [address] [place] [address] Care Team Providers Name Role Phone Froylan Louise MD Primary Care Provider Unavailable Froylan Louise MD Unavailable Unavailable Esthela Corea RN Unavailable Unavailable Encounter Details Date Type Department Care Team Description 01/19/2021 Telephone [facility] Froylan Louise Ra, MD [place] [address] [place] [address] Social History Tobacco Use [...] you attend hindu or Patient refused 2020 zoroastrianism services? Do [...] Will recheck INR Friday01/22/21. Rosmery Thorne RN [facility] Anticoagulation Clinic [place] Telephone Encounter - Arabella Murrieta RN - 01/19/2021 11:22 AM CDT Patient left VM on [facility] home care line asking for a return call from [facility]. Arabella Mcnair RN, BSN, PHN Anticoagulation Nurse [phone] documented in this encounter Plan of Treatment Upcoming Encounters Date Type Specialty Care Team Description 05/20/2022 Lab Lab documented as of this encounter Visit Diagnoses Diagnosis Chronic deep vein thrombosis (DVT) of lo wer extremity, unspecified laterality, unspecified vein (H) - Primary intermediate current use of anticoagulant t herapy documented in this encounter Care Teams Geriatric Social Worker Relationship Specialty Start Date End Date Froylan Louise MD PCP - General Family Practice 02/22/14 Froylan Louise MD Assigned PCP 03/13/14 2 Esthela Corea RN Personal Advocate & Liaison Family Medicine 10/16 (PAL) documented as of this encounter
--- OUTSIDE RECORDS SUMMARY | 2022-05-15 22:48 | XMS_ITS | Encounter Summary ---
:1955 Author Organization [place] Address [address] [place] [address] Care Team Providers Name Role Phone Froylan [...] you attend muslim or Patient refused 2020 baptist services? Do [...] on filedocumented in this encounter Care Teams Brewmaster Relationship Specialty Start Date End Date Froylan Louise MD PCP - General Family Practice 02/22/14 Froylan Louise MD Assigned PCP 03/13/14 2 Esthela Corea, RN Personal Advocate & Liaison Family Medicine 10/16 (PAL) documented as of this encounter
--- OUTSIDE RECORDS SUMMARY | 2022-05-15 22:48 | XMS_ITS | Encounter Summary ---
:1955 Author Organization [place] Address [address] [place] [address] Care Team Providers Name Role Phone Froylan Louise MD Primary Care Provider Unavailable Froylan Louise MD Unavailable Unavailable Esthela Corea RN Unavailable Unavailable Encounter Details Date Type Department Care Team Description 01/26/[address] [facility] Chr onic deep vein thrombosis (DVT) of lower extremity, unspecified laterality, unspecified vein (H); [facility] long-term current use of ant icoagulant therapy [address] [place] [address] Social History Tobacco Use [...] you attend methodist or Patient refused 2020 quaker services? Do [...] results unspecified section. laterality, unspecified vein (H) intermodal customer service current use of anticoagulant therapy documented in [...] City/State/ZIP Code [place] [address] Lab [address] [facility], 1st floor of clinic) [place] [address], [phone] [facility] [address] [facility] room [facility], 1st floor of clinic) documented in this encounter Visit Diagnoses Diagnosis Chronic deep vein thrombosis (DVT) of lo wer extremity, unspecified laterality, unspecified vein (H) [employer]modal customer service current use of anticoagulant t herapy documented in this encounter Care Teams Desktop Support Specialist Relationship Specialty Start Date End Date Froylan Louise MD PCP - General Family Practice 02/22/14 Froylan Louise MD Assigned PCP 03/13/14 2 Esthela Corea, RN Personal Advocate & Liaison Family Medicine 10/16 (PAL) documented as of this encounter
--- OUTSIDE RECORDS SUMMARY | 2022-05-15 22:48 | XMS_ITS | Encounter Summary ---
:1955 Author Organization [place] Address [address] [place] [address] Care Team Providers Name Role Phone Froylan [...] 4 or more times a w apache 05/25/2021 alcohol? How many drinks containing [...] you attend yarsani or Patient refused 2020 scientologist services? Do [...] on filedocumented in this encounter Care Teams Telegraph Repeater Mechanic Relationship Specialty Start Date End Date Froylan Louise MD PCP - General Family Practice 02/22/14 Froylan Louise MD Assigned PCP 03/13/14 2 Esthela Corea, RN Personal Advocate & Liaison Family Medicine 10/16 (PAL) documented as of this encounter
--- OUTSIDE RECORDS SUMMARY | 2022-05-15 22:48 | XMS_ITS | Encounter Summary ---
:1955 Author Organization [place] Address [facility] [place] [address] Care Team Providers Name Role Phone Froylan Louise MD Primary Care Provider Unavailable Froylan Louise MD Unavailable Unavailable Esthela Corea RN Unavailable Unavailable Reason for Visit Reason Onset Date Comments WOUND CARE 01/19/2021 Encounter Details Date Type Department Care Team Description 01/19/[address] [facility] Wound [place] Nuñez MD WOUND CARE Clinic [facility] [address] [place] [address] [place] [address] [phone] Social History Tobacco Use Types Packs/Day Years [...] you attend hoahaoism or Patient refused 2020 temple services? Do [...] on filedocumented in this encounter Care Teams Marine Biologist Relationship Specialty Start Date End Date Froylan Louise MD PCP - General Family Practice 02/22/14 Froylan Louise MD Assigned PCP 03/13/14 2 Esthela Corea RN Personal Advocate & Liaison Family Medicine 10/16 (PAL) documented as of this encounter
--- OUTSIDE RECORDS SUMMARY | 2022-05-15 22:48 | XMS_ITS | Encounter Summary ---
:1955 Author Organization [place] Address [facility] [place] [address] Care Team Providers Name Role Phone Froylan Louise MD Primary Care Provider Unavailable Froylan Louise MD Unavailable Unavailable Esthela Corea RN Unavailable Unavailable Reason for Visit Reason Comments WOUND CARE Encounter Details Date Type Department Care Team Description 01/29/2021 Hospital Encounter [facility] Jayesh Yost Open knee wound, Wound Clinic Latesha Viveros PA-C left, initial [address] WOUND HEALING encounter [address] [place], [place] [address] [address] [place], [place] [address] Social History Tobacco Use Types Packs/Day Years [...] you attend congregation or Patient refused 2020 restorationist services? Do [...] from the original note were not included. [facility] [address] [place] [address] Call us at [phone] if you have any questions about your [...] twice daily order from [email or web address] or call [phone] Wound care recommendations to Left Knee After [...] on your patient satisfaction survey form that [facility] will be sending you. If you have any billing related questions please call the [facility] Business office at [phone]. The clinic staff does not handle billing [...] proximal vein of both lower extremities (H), intermediate accountant current use of anticoagulants with INR goal [...] 1000 MCG tablet by mouth every morning Rpfznnuyhfh-Lzvbxisto-Xmzba Inhale 1 puff 0 02/05/2021 terol (TRELEGY [...] 11/30/2021 (CHOLECALCIFEROL) 250 mcg by mouth every (34920 units) capsule morning warfarin ANTICOAGULANT TAKE 5MG [...] from the original note were not included. [facility] [place] Nurse Note Subject: Virgil Christine presents for [...] encounter documented in this encounter Care Teams Air Export Coordinator Relationship Specialty Start Date End Date Froylan Louise MD PCP - General Family Practice 02/22/14 Froylan Louise MD Assigned PCP 03/13/14 2 Esthela Corea, RN Personal Advocate & Liaison Family Medicine 10/16 (PAL) documented as of this encounter
--- OUTSIDE RECORDS SUMMARY | 2022-05-15 22:48 | XMS_ITS | Encounter Summary ---
:1955 Author Organization [place] Address [address] [place] [address] Care Team Providers Name Role Phone Froylan Louise MD Primary Care Provider Unavailable Froylan Louise MD Unavailable Unavailable Esthela Corea RN Unavailable Unavailable Encounter Details Date Type Department Care Team Description 01/29/2021 [facility] Chr onic deep vein thrombosis (DVT) of lower extremity, unspecified laterality, unspecified vein (H); [facility] current use of ant icoagulant therapy [address] [place] [address] Social History Tobacco Use [...] you attend zoroastrian or Patient refused 2020 congregation services? Do [...] City/State/ZIP Code Phon e Number [place] [address] Lab [address] [facility] ([facility], 1st floor of clinic) [place] [address], [phone] [facility] [address] [facility] room number, 1st floor of clinic) documented in this encounter Visit Diagnoses Diagnosis Chronic deep vein thrombosis (DVT) of lo wer extremity, unspecified laterality, unspecified vein (H) [facility] current use of anticoagulant t herapy documented in this encounter Care Teams Entry Level Sales Representative Relationship Specialty Start Date End Date Froylan Louise MD PCP - General Family Practice 02/22/14 Froylan Louise MD Assigned PCP 03/13/14 2 Esthela Corea, RN Personal Advocate & Liaison Family Medicine 10/16 (PAL) documented as of this encounter
--- OUTSIDE RECORDS SUMMARY | 2022-05-15 22:48 | XMS_ITS | Encounter Summary ---
:1955 Author Organization [place] Address [address] [place] [address] Care Team Providers Name Role Phone Froylan Louise MD Primary Care Provider Unavailable Froylan Louise MD Unavailable Unavailable Esthela Corea RN Unavailable Unavailable Encounter Details Date Type Department Care Team Description 01/22/2021 [facility] Chr onic deep vein thrombosis (DVT) of lower extremity, unspecified laterality, unspecified vein (H); [facility] assisted current use of ant icoagulant therapy [address] [place] [address] Social History Tobacco [...] you attend jainism or Patient refused 2020 protestant services? Do [...] results unspecified section. laterality, unspecified vein (H) assisted current use of anticoagulant therapy documented in [...] Code Phon [place] Number [place] [address] Lab [address] [facility] room [facility], 1st floor of clinic) [place] [address], [facility] [address] [facility] (no room number, 1st floor of clinic) documented in this encounter Visit Diagnoses Diagnosis Chronic deep vein thrombosis (DVT) of lo wer extremity, unspecified laterality, unspecified vein (H) assisted current use of anticoagulant t herapy documented in this encounter Care Teams Glove Cutter Relationship Specialty Start Date End Date Froylan Louise MD PCP - General Family Practice 02/22/14 Froylan Louise MD Assigned PCP 03/13/14 2 Esthela Corea, RN Personal Advocate & Liaison Family Medicine 10/16 (PAL) documented as of this encounter
--- OUTSIDE RECORDS SUMMARY | 2022-05-15 22:48 | XMS_ITS | Encounter Summary ---
:1955 Author Organization [place] Address Formerly [facility] [place] [address] Care Team Providers Name Role Phone Froylan [...] [employer] [place] [address] Phone: Referral ID Status Reason Start Date Expiration Date Visits Requ ested Visits Authorized [id number] 1 1 Encounter Details Date Type Department Care Team Description 01/15/2021 - Hospital Encounter [facility] Uriel Nuñez Op en knee wound, 01/19/2021 Audrey Conrad MD left, initial Intermediate Care [address] encounter [address] [place] [address] [place] [id number] Social History Tobacco Use Types Packs/Day Years [...] you attend hoahaoism or Patient refused 2020 rastafari services? Do [...] Uriel Nuñez MD Discharging Service: [facility] General Surgery Primary Provider: Froylan Louise Principle Diagnosis: Open knee wound, left, initial encounter [S81.002A] Secondary Diagnosis: Same Procedures: 01/15/21 - Excisional debridement of left knee wound with creation of medial thigh counterincision for debridement with significant undermining. Application of VAC vera flow - Dr. Uriel Nuñez Brief HPI: Virgil Christine is a 65 year old year-old male who presented to [facility] for elective wound debridement as stated [...] Take 2 g by mouth every morning Xxblrndnekh-Slopcclwi-Qxnmupqrld (TRELEGY ELLIPTA) 100-62.5-25 MCG/INH oral inhaler Inhale [...] Lichen planus vitamin D3 (CHOLECALCIFEROL) 250 mcg (61566 units) capsule Take 1 capsule by mouth [...] proximal vein of both lower extremities (H); termite helper current use of anticoagulants with INR [...] at (location with clinic name or city) [facility], on 01/23/21 for wound vac change. No follow up labs or test are needed. Follow up with [facility] Coumadin clinic next week After Care [...] that dressing leaks or machine malfunctions. Consult [facility] nurse. Follow-up for wound care in [...] vein of both lower extremities (H), termite helper current use of anticoagulants with INR [...] 1000 MCG tablet by mouth every morning Orqfhqgvslu-Ittdhfpmy-Dxssq Inhale 1 puff 0 02/05/2021 terol (TRELEGY [...] 11/30/2021 (CHOLECALCIFEROL) 250 mcg by mouth every (71202 units) capsule morning warfarin ANTICOAGULANT TAKE 5MG [...] Hodge MD - 01/19/2021 6:43 AM CDT [facility] VASCULAR SURGERY Progress Note Admission Date: [...] 0543 01/16/21 0622 INR 1.21* 1.13 1.03 [facility] General Surgery Resident - [id number] Associated attestation - Uriel Nuñez MD - 01/22/2021 7:32 AM CDT Physician Attestation I agree with the information in this note. Jessica Muñoz RN - 01/18/2021 8:18 AM CDT Phone call received from Aga at [facility] in [place]. 3M [employer] wound vac for home beingbrought over to patient room via volunteer services. Aga has left cannisters and one dressing in the box and Aga has the rest of the dressings as she will be doing the dressings in the clinic. Robin Hodge MD - 01/18/2021 6:35 AM CDT [facility] VASCULAR SURGERY Progress Note Admission Date: [...] Hodge MD - 01/17/2021 12:40 PM CDT [facility] VASCULAR SURGERY Progress Note Admission Date: [...] 01/15/21 0751 INR 1.13 1.03 1.07 Robin [facility] General Surgery Resident - [email or web address] Associated attestation - Uriel Nuñez MD - 01/17/2021 1:03 PM CDT Physician Attestation I agree with the information in this note. Jessica Muñoz RN - 01/16/2021 1:55 PM CDT Call received from Aga at the [facility] [place]. Aga has ordered the 3M [employer] wound [...] therapy. CPAP order placed per home parameters. EXHIBIT BUILDER medicationsreviewed, discontinued duplicate hydrochlorothiazide order. At this time will defer all postoperative cares to primary team. Hospitalist will sign-off, call with concerns. Nicolas Black PA-C 01/15/2021, 12:11 PM Pager: [phone] Anita Randhawa RN - 01/15/2021 9:08 AM CDT Pt rates back pain #9 and (L) knee pain #3. Given 1000mg of Tyl preop. Face red (sunburn) Houston Benavides - 01/12/2021 12:24 PM CDT EXHIBIT BUILDER medications updated by Medication Scribe prior to [...] every morning at AM Yes Reported, Patient Wvfizwpgjpu-Bgpibeawm-Engeedgqte (TRELEGY ELLIPTA) 100-62.5-25 MCG/INH oral inhaler Inhale [...] Louise MD vitamin D3 (CHOLECALCIFEROL) 250 mcg (49726 units) capsule Take 1 capsule by mouth [...] thana month Froylan Louise MD Gerard Burgess, [facility] Medication Scribe [facility] documented in this encounter H&P Notes Elvis Valle MD - 01/15/2021 8:40 AM CDT I have reviewed the surgical (or preoperative) H&P that is linked to this encounter, and examined the patient. There are no significant changes Source Note - So Dodd MD - 01/12/2021 1:00 PM CDT [facility] [id number] [place] [phone] Primary Provider: Froylan Louise PREOPERATIVE EVALUATION: Today's date: 01/12/2021 Virgil Christine is a 65 year old male who presents for a preoperative evaluation. Today INR -1.6 Surgical Information: Surgery/Procedure: L Knee wound debridement for Left knee wound Surgery Location: [facility] Surgeon: Dr. Nuñez Surgery Date: 01/15/21 Time [...] vein thrombosis s/p bindu filter placement . half-way current use of anticoagulant therapy - INR [...] Problem List Diagnosis Date Noted ??? [facility] 07/16/2011 Priority: High EMERGENCY CARE PLAN Presenting Problem Signs and Symptoms Treatment Plan Questions or conerns during clinic hours I will call the clinic directly Questions or conerns outside clinic hours I will call the 24 hour nurse line at [phone] Patient needs to schedule an appointment I will call the 24 hour scheduling team at [phone] orclinic directly Same day treatment I will call the clinic first, nurse line if after hours, urgent care and expresscare if needed DX V65.8 REPLACED WITH [address] [facility] (09/28/2012) ??? Morbid obesity (H) 01/12/2021 [...] 1,000 mcg by mouth every morning ??? Irrgmmtojzz-Mamilxkyx-Mrgbmigtoa (TRELEGY ELLIPTA) 100-62.5-25 MCG/INH oral inhaler Inhale 1 puff into the lungs every morning ??? hydrochlorothiazide (HYDRODIURIL) 25 MG tablet Take 25 mg by mouth every morning ??? terazosin (HYTRIN) 2 MG capsule Take 2 mg by mouth At Bedtime ??? vitamin D3 (CHOLECALCIFEROL) 250 mcg (32070 units) capsule Take 1 capsule by mouth [...] from the original note were not included. [facility] Nurse Inpatient Wound Assessment Reason for consultation: [...] and the entire wound with pocket/undermining is [id number] x 6cm tapering toward anterior wound Wound [...] January 15, 2021 SURGEON: Uriel Nuñez MD TEACHER AIDE CLERICAL: None. PREOPERATIVE DIAGNOSIS: 1. Chronic left knee [...] to recovery room Uriel Nuñez MD Pager [phone] Pharmacy-Anticoagulation Service - [facility] - 01/15/2021 12:11 PM CDT Clinical Pharmacy - Warfarin Dosing Consult Pharmacy has been consulted to manage this patient???s warfarin therapy. Indication: DVT/ PE Treatment Therapy Goal: INR 2-3 Warfarin Prior to Admission: Yes Warfarin EXHIBIT BUILDER Regimen: 5 mg on Wednesdays and 7.5 [...] Nuñez MD - 01/15/2021 10:28 AM CDT [facility] Brief Operative Note Pre-operative diagnosis: Open [...] LAB - BLOOD ORDERABLES Performing Organization Address City/[facility]/ZIP Code Phon e Number [facility] [place] [address] Care Lab [address] [...] Organization Address City/State/ZIP Code Phon e Number [facility] [place] [address] Care Lab [address] [...] City/State/ZIP Code Phon e Number LABORATORY [place] [address] Care [address] [...] LAB - BLOOD ORDERABLES Performing Organization Address City/[facility]/ZIP Code Phon e Number LABORATORY [facility] [address] Care Lab [address] [...] Address City/State/ZIP Code Phon e Number LABORATORY [facility] [address] Care Lab [address] [...] Address City/State/ZIP Code Phon e Number LABORATORY [place] [address] Care Lab [address] [...] Address City/State/ZIP Code Phon e Number [place]ATORY [place] [address] Care Lab [address] [...] Given 01/18/2021 8:37 AM CDT 1 tablet Mbiqdkpalhi-Ciqhdcewj-Zuduwjlxpi (TRELEGY Given 01/19/2021 9:09 AM CDT 1 [...] analgesic side effects. Hold while on IV CIRCUIT BOARD REPAIR TECHNICIAN or with regular IV opioid dosing. Given [...] 1 tablet vitamin D3 (CHOLECALCIFEROL) 250 mcg (04578 Given 12/23 9:10 AM CDT 250 mcg [...] on Fri01/15/21 at 1145, Formulary sub for EXHIBIT BUILDER Ambien CR 6.25 mg at bedtime prn [...] on Fri01/15/21 at 2100, Patient supplied medication Dociuhlqpfb-Iiqvdsrwz-Dafzhsgczc (TRELEG Y ELLIPTA) 100-62.5-25 MCG/INH oral inhaler [...] supplied medication vitamin D3 (CHOLECALCIFEROL) 250 mcg (28599 units) cap maggie 250 mcg 1035 (Given [...] used when administering multiple Central Nervous System (HEALTH SAFETY ENGINEER) depressing meds within a short time frame. [...] - Provider: JARED PEÑA)1027 (Given - Provider: aKren Ellis, CINDY)2108 (Given - Provider: Karen Ellis, CINDY) 0406 (Given - Provider: Arminda Laureano RN) 0454 (Given - Provider: Howard Hubbard, CINDY) 50 mg, Oral, EVERY 6 HOURS PRN, moderate pain, severe pain, Starting on Fri01/15/21 at 1112, Hold oral PRN dose for analgesic side effects. Notify provider to assess for uncontrolled pain or analgesic s breezy effects. Hold while on IV CIRCUIT BOARD REPAIR TECHNICIAN or with regular IV opioid dosi ng. [...] on Fri01/15/21 at 1145, Formulary sub for EXHIBIT BUILDER Ambien CR 6.25 mg at bedtime prn [...] after each naloxone dose. Consider transfer to [facility] if patient respiratory parameters hav e not [...] provider.
documented in this encounter Care Teams Patient Access Relationship Specialty Start Date End Date Froylan Louise MD PCP - General Family Practice 02/22/14 Froylan Louise MD Assigned PCP 03/13/14 2 Esthela Corea RN Personal Advocate & Liaison Family Medicine 10/16 (PAL) documented as of this encounter
--- OUTSIDE RECORDS SUMMARY | 2022-05-15 22:48 | XMS_ITS | Encounter Summary ---
:1955 Author Organization [place] Address [address] [place] [address] Care Team Providers Name Role Phone Froylan Louise MD Primary Care Provider Unavailable Froylan Louise MD Unavailable Unavailable Esthela Corea RN Unavailable Unavailable Reason for Visit Reason Onset Date Comments Outreach 01/22/2021 Encounter Details Date Type Department Care Team Description 01/22/2021 Telephone [facility] Froylan Louise Ra, MD Outreach [address] [phone] Social History Tobacco Use [...] containing 4 or more times a w [place] 05/25/2021 alcohol? How many drinks containing [...] registered nurse, and I am calling from [facility]. I am calling to follow up and [...] diagnoses of heart failure, COPD, diabetes, or NM? No On warfarin: Were you given any [...] on filedocumented in this encounter Care Teams Label Tacker Relationship Specialty Start Date End Date Froylan Louise MD PCP - General Family Practice 02/22/14 Froylan Louise MD Assigned PCP 03/13/14 2 Esthela Corea, RN Personal Advocate & Liaison Family Medicine 10/16 (PAL) documented as of this encounter
--- OUTSIDE RECORDS SUMMARY | 2022-05-15 22:48 | XMS_ITS | Encounter Summary ---
:1955 Author Organization [place] Address [facility] [place] [address] Care Team Providers Name Role Phone Froylan Louise MD Primary Care Provider Unavailable Froylan Louise MD Unavailable Unavailable Esthela Corea RN Unavailable Unavailable Reason for Visit Reason Comments WOUND CARE Encounter Details Date Type Department Care Team Description 01/26/[address] [facility] Uriel Nuñez Op en knee wound, Wound Clinic Latesha Conrad MD left, initial [address] encounter [address] [place] [phone] Social History Tobacco Use Types Packs/Day [...] you attend shinto or Patient refused 2020 sabianist services? Do [...] from the original note were not included. [facility] [address] [place] [phone] Call us at [phone] if you have any questions about your [...] Diosmin 1 tablet twice daily order from [email or web address] or call [phone] Wound care recommendations to Left Knee After [...] your patient satisfaction survey form that [facility] will be sending you. If you have any billing related questions please call the [facility] Business office at [phone]. The clinic staff does not handle billing [...] proximal vein of both lower extremities (H), supervisor intermediates current use of anticoagulants with INR goal [...] 1000 MCG tablet by mouth every morning Efquvytkymi-Xslpmudfj-Jmnbb Inhale 1 puff 0 02/05/2021 terol (TRELEGY [...] 11/30/2021 (CHOLECALCIFEROL) 250 mcg by mouth every (44492 units) capsule morning warfarin ANTICOAGULANT TAKE 5MG [...] from the original note were not included. [facility] [place] Nurse Note Subject: Virgil Christine presents for [...] encounter documented in this encounter Care Teams Fishing Boat Mate Relationship Specialty Start Date End Date Froylan Louise MD PCP - General Family Practice 02/22/14 Froylan Louise MD Assigned PCP 03/13/14 2 Esthela Corea, CINDY Personal Advocate & Liaison Family Medicine 10/16 (PAL) documented as of this encounter
--- OUTSIDE RECORDS SUMMARY | 2022-05-15 22:48 | XMS_ITS | Encounter Summary ---
:1955 Author Organization [place] Address [address] [place] [address] Care Team Providers Name Role Phone Froylan Louise MD Primary Care Provider Unavailable Froylan Louise MD Unavailable Unavailable Esthela Corea RN Unavailable Unavailable Reason for Referral Care Coordination (Routine) - Closed Specialty Diagnoses / Procedures Referred By Contact Refer red To Contact Diagnoses [place] [address] [place] [address] Referral ID Status Reason Start Date Expiration Date Visits Requ ested Visits Authorized [id number] Closed 01/22/2021 01/22/2022 1 1 Encounter Details Date Type Department Care Team Description 01/22/2021 Orders Only [facility] Care Froylan Louise, Other specified Coordination counseling [address] [place] [phone] Social History Tobacco Use Types Packs/Day [...] you attend buddhism or Patient refused 2020 hoahaoism services? Do [...] Name Type Priority Associated Diagnoses Order S [facility] Discharge Referral Routine Other specified Ex pected: 01/22/2021 - Referral to CC counseling (Approximat e), Expires: 2021 documented as of this encounter Visit Diagnoses Diagnosis Other specified counseling documented in this encounter Care Teams Soldering Machine Operator Automatic Relationship Specialty Start Date End Date Froylan Louise MD PCP - General Family Practice 02/22/14 Froylan Louise MD Assigned PCP 03/13/14 2 Esthela Corea, RN Personal Advocate & Liaison Family Medicine 10/16 (PAL) documented as of this encounter
--- OUTSIDE RECORDS SUMMARY | 2022-05-15 22:49 | XMS_ITS | Encounter Summary ---
:1955 Author Organization [place] Address [facility] [place] [address] Care Team Providers Name Role Phone Froylan Louise MD Primary Care Provider Unavailable Froylan Louise MD Unavailable Unavailable Esthela Corea RN Unavailable Unavailable Encounter Details Date Type Department Care Team Description 01/11/2021 Telephone [facility] Nuñez MD [facility] [address] [place] [address] [place] [address] [place] [address] [phone] Social History Tobacco Use Types Packs/Day Years Used Date Smoking Tobacco: Former Cigarettes 2 25 Quit : 08/04/2006 Smokeless Tobacco: Never Comments: 2004 Alcohol Use Standard Drinks/Week Comments Yes 0 (1 standard drink = 0.6 oz pure alcoho l) 4 BEERS A WEEK Alcohol Habits Answer Date Recorded How often do you have a drink containing 4 or more times a w [place] 05/25/2021 alcohol? How many drinks containing alcohol [...] you attend holiness or Patient refused 2020 taoism services? Do [...] Nicolas Ford - 01/11/2021 11:31 AM CDT [facility] Who is the name of the provider?: [...] filedocumented in this encounter Care Teams Supervisor [employer] Relationship Specialty Start Date End Date Froylan Louise MD PCP - General Family Practice 02/22/14 Froylan Louise MD Assigned PCP 03/13/14 2 Esthela Corea RN Personal Advocate & Liaison Family Medicine 10/16 (PAL) documented as of this encounter
--- OUTSIDE RECORDS SUMMARY | 2022-05-15 22:49 | XMS_ITS | Encounter Summary ---
:1955 Author Organization [place] Address [address] [place] [address] Care Team Providers Name Role Phone Froylan Louise MD Primary Care Provider Unavailable Froylan Louise MD Unavailable Unavailable Esthela Corea RN Unavailable Unavailable Encounter Details Date Type Department Care Team Description 01/04/2021 [facility] Chr onic deep vein thrombosis (DVT) of lower extremity, unspecified laterality, unspecified vein (H); [facility] terminal carman current use of ant icoagulant therapy [address] [place] [address] Social History Tobacco Use [...] you attend mandaen or Patient refused 2020 temple services? Do [...] results unspecified section. laterality, unspecified vein (H) terminal carman current use of anticoagulant therapy documented in [...] City/State/ZIP Code Phon [place] [address] Lab [address] [facility] (no room number, 1st floor of clinic) [place] [address], [phone] [facility] [address] [facility] (no room number, 1st floor of clinic) documented in this encounter Visit Diagnoses Diagnosis Chronic deep vein thrombosis (DVT) of lo wer extremity, unspecified laterality, unspecified vein (H) terminal carman current use of anticoagulant t herapy documented in this encounter Care Teams Hearing Therapist Relationship Specialty Start Date End Date Froylan Louise MD PCP - General Family Practice 02/22/14 Froylan Louise MD Assigned PCP 03/13/14 2 Esthela Corea, RN Personal Advocate & Liaison Family Medicine 10/16 (PAL) documented as of this encounter
--- OUTSIDE RECORDS SUMMARY | 2022-05-15 22:49 | XMS_ITS | Encounter Summary ---
:1955 Author Organization [place] Address [facility] [place] [address] Care Team Providers Name Role Phone Froylan [...] LINDSEY AFLO VAC PLACEMENT LL2 [place] [address] Phone: Referral ID Status Reason Start Date Expiration Date Visits Requ ested Visits Authorized [id number] 1 1 Encounter Details Date Type Department Care Team Description 01/15/2021 Surgery [facility] Uriel Nuñez MD LEFT KNEE WOUND [place] [facility] [address] EMENT WITH SONIC Services LOUIE [address] 1 AND VERAFLO VAC [address], [address] [place] [address] [address] PLACEMENT [address] [place] [address] [phone] Surgery Details Date/Time Status Location OR Service [...] you attend gnosticist or Patient refused 2020 baptist services? Do [...] Admitting Physician: Uriel Nuñez MD Discharging Service: [facility] General Surgery Primary Provider: Froylan Louise Principle Diagnosis: Open knee wound, left, initial encounter [S81.002A] Secondary Diagnosis: Same Procedures: 01/15/21 - Excisional debridement of left knee wound with creation of medial thigh counterincision for debridement with significant undermining. Application of VAC vera flow - Dr. Uriel Nuñez Brief HPI: Virgil Christine is a 65 year old year-old male who presented to [facility] for elective wound debridement as stated above. 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 No follow up labs or test are needed. Follow up with [facility] Coumadin clinic next week After Care [...] that dressing leaks or machine malfunctions. Consult [facility] nurse. Follow-up for wound care in Dr. [...] 1000 MCG tablet by mouth every morning Mfhcstwlkud-Zojekpktz-Smqrj Inhale 1 puff 0 02/05/2021 terol (TRELEGY [...] 11/30/2021 (CHOLECALCIFEROL) 250 mcg by mouth every (50407 units) capsule morning warfarin ANTICOAGULANT TAKE 5MG [...] Reed MD - 01/19/2021 6:43 AM CDT [facility] VASCULAR SURGERY Progress Note Admission Date: 01/15/2021 [...] 01/16/21 0622 INR 1.21* 1.13 1.03 Robin [facility] General Surgery Resident - PGY4 Associated attestation - Uriel Nuñez MD - 01/22/2021 7:32 AM CDT Physician Attestation I agree with the information in this note. Jessica Muñoz RN - 01/18/2021 8:18 AM CDT Phone call received from [facility] [place]. 3M [employer] wound vac for home beingbrought over to patient room via volunteer services. Aga has left cannisters and one dressing in the box and Aga has the rest of the dressings as she will be doing the dressings in the clinic. Robin Hodge MD - 01/18/2021 6:35 AM CDT [facility] VASCULAR SURGERY Progress Note Admission Date: 01/15/2021 [...] Hodge MD - 01/17/2021 12:40 PM CDT [facility] VASCULAR SURGERY Progress Note Admission Date: 01/15/2021 [...] 01/15/21 0751 INR 1.13 1.03 1.07 Robin [facility] General Surgery Resident - PGY4 Associated attestation - Uriel Nuñez MD - 01/17/2021 1:03 PM CDT Physician Attestation I agree with the information in this note. Jessica Muñoz RN - 01/16/2021 1:55 PM CDT Call received from Aga at the [facility] [place]. Aga has ordered the 3M [employer] wound [...] therapy. CPAP order placed per home parameters. CURRICULUM ASSISTANT PRINCIPAL medicationsreviewed, discontinued duplicate hydrochlorothiazide order. At this time will defer all postoperative cares to primary team. Hospitalist will sign-off, call with concerns. Nicolas Black PA-C 01/15/2021, 12:11 PM Pager: [phone] Anita Randhawa RN - 01/15/2021 9:08 AM CDT Pt rates back pain #9 and (L) knee pain #3. Given 1000mg of Tyl preop. Face red (sunburn) [place] Benavides - 01/12/2021 12:24 PM CDT CURRICULUM ASSISTANT PRINCIPAL medications updated by Medication Scribe prior to [...] every morning at AM Yes Reported, Patient Vdalmikizks-Aydeufjws-Izyannfjcm (TRELEGY ELLIPTA) 100-62.5-25 MCG/INH oral inhaler Inhale [...] Louise MD vitamin D3 (CHOLECALCIFEROL) 250 mcg (03642 units) capsule Take 1 capsule by mouth [...] thana month Froylan Louise MD Gerard Burgess, [facility] Medication [facility] documented in this encounter H&P Notes Elvis Valle MD - 01/15/2021 8:40 AM CDT I have reviewed the surgical (or preoperative) H&P that is linked to this encounter, and examined the patient. There are no significant changes Source Note - So Dodd MD - 01/12/2021 1:[address] [facility] [id number] [place] [phone] Primary Provider: Froylan Louise PREOPERATIVE EVALUATION: Today's date: 01/12/2021 Virgil Christine is a 65 year old male who presents for a preoperative evaluation. Today INR -1.6 Surgical Information: Surgery/Procedure: L Knee wound debridement for Left knee wound Surgery Location: [facility] Surgeon: Dr. Nuñez Surgery Date: 01/15/21 [...] vein thrombosis s/p bindu filter placement . shelter current use of anticoagulant therapy - INR [...] Problem List Diagnosis Date Noted ??? [facility] 07/16/2011 Priority: High EMERGENCY CARE PLAN Presenting Problem Signs and Symptoms Treatment Plan Questions or conerns during clinic hours I will call the clinic directly Questions or conerns outside clinic hours I will call the 24 hour nurse line at [phone] Patient needs to schedule an appointment I will call the 24 hour scheduling team at [phone] orinic directly Same day treatment I will call the clinic first, nurse line if after hours, urgent care and expresscare if needed DX V65.8 REPLACED WITH [id number] (09/28/2012) ??? Morbid obesity (H) 01/12/2021 Priority: [...] 1,000 mcg by mouth every morning ??? Vjzhytuffol-Eswqydnnt-Tvtnpxreem (TRELEGY ELLIPTA) 100-62.5-25 MCG/INH oral inhaler Inhale 1 puff into the lungs every morning ??? hydrochlorothiazide (HYDRODIURIL) 25 MG tablet Take 25 mg by mouth every morning ??? terazosin (HYTRIN) 2 MG capsule Take 2 mg by mouth At Bedtime ??? vitamin D3 (CHOLECALCIFEROL) 250 mcg (36428 units) capsule Take 1 capsule by mouth [...] from the original note were not included. [facility] Nurse Inpatient Wound Assessment Reason for consultation: [...] to notify the Provider(s) and re-consult the [facility] Nurse if wound(s) deteriorates or new skin [...] and the entire wound with pocket/undermining is [id number] x 6cm tapering toward anterior wound Wound [...] January 15, 2021 SURGEON: Uriel Nuñez MD NAPPER GRINDER: None. PREOPERATIVE DIAGNOSIS: 1. Chronic left knee [...] to recovery room Uriel Nuñez MD Pager [phone] Pharmacy-Anticoagulation Service - Shanique Waters [facility] - 01/15/2021 12:11 PM CDT Clinical Pharmacy - Warfarin Dosing Consult Pharmacy has been consulted to manage this patient???s warfarin therapy. Indication: DVT/ PE Treatment Therapy Goal: INR 2-3 Warfarin Prior to Admission: Yes Warfarin CURRICULUM ASSISTANT PRINCIPAL Regimen: 5 mg on Wednesdays and 7.5 [...] Nuñez MD - 01/15/2021 10:28 AM CDT [facility] Brief Operative Note Pre-operative diagnosis: Open knee [...] Address City/State/ZIP Code [place] [address] Care Lab [address] [...] Address City/State/ZIP Code Phon e Number [place]ATORY [place] [address] Care Lab [address] [...] LAB - BEAKER POCT Performing Organization Address City/[facility]/ZIP Code Phon e Number LAB[place]ATORY [place] [address] Care Lab [address] [...] Address City/State/ZIP Code Phon e Number [place]ATORY [place] [address] Care Lab [address] [...] LAB - BEAKER POCT Performing Organization Address City/[facility]/ZIP Code Phon e Number LABORATORY [place] [address] Care Lab [address] [...] LAB - BLOOD ORDERABLES Performing Organization Address City/[facility]/ZIP Code Phon e Number [place]ATORY [place] [address] Care Lab [address] [...] Address City/State/ZIP Code Phon e Number LABORATORY [facility] [place] [address] [phone] Care Lab [address] 1[address] floor, [...] Given 01/18/2021 8:37 AM CDT 1 tablet Iedcdgjtnsp-Wmteqbmdj-Jdxgcdawur (TRELEGY Given 01/19/2021 9:09 AM CDT 1 [...] Given 01/15/2021 9:22 AM 20 mLs Operative %-[id number] injection CDT Site/Surgical S ite PRN, Starting [...] analgesic side effects. Hold while on IV LIFE CLAIMS EXAMINER or with regular IV opioid dosing. Given [...] 1 tablet vitamin D3 (CHOLECALCIFEROL) 250 mcg (29288 Given 12/23 9:10 AM CDT 250 mcg [...] on Fri01/15/21 at 1145, Formulary sub for CURRICULUM ASSISTANT PRINCIPAL Ambien CR 6.25 mg at bedtime prn [...] on Fri01/15/21 at 2100, Patient supplied medication Wboxfqpdazs-Iyodzrjyn-Itcctvvvyc (TRELEG Y ELLIPTA) 100-62.5-25 MCG/INH oral inhaler [...] supplied medication vitamin D3 (CHOLECALCIFEROL) 250 mcg (27097 units) cap maggie 250 mcg 1035 (Given - Provider: Karen Elils RN) 0838 (Given - Provider: Hola Friedman [...] used when administering multiple Central Nervous System (RN CASE MANAGER) depressing meds within a short time frame. [...] s breezy effects. Hold while on IV LIFE CLAIMS EXAMINER or with regular IV opioid dosi ng. [...] on Fri01/15/21 at 1145, Formulary sub for CURRICULUM ASSISTANT PRINCIPAL Ambien CR 6.25 mg at bedtime prn [...] after each naloxone dose. Consider transfer to [facility] if patient respiratory parameters hav e [...] provider.
documented in this encounter Care Teams Guide Foreign Tour Relationship Specialty Start Date End Date Froylan Louise MD PCP - General Family Practice 02/22/14 Froylan Louise MD Assigned PCP 03/13/14 2 Esthela Corea, RN Personal Advocate & Liaison Family Medicine 10/16 (PAL) documented as of this encounter
--- OUTSIDE RECORDS SUMMARY | 2022-05-15 22:49 | XMS_ITS | Encounter Summary ---
:1955 Author Organization [facility] Address [address] [place] [address] Care Team Providers Name Role Phone Froylan [...] you attend scientologist or Patient refused 2020 oriental orthodox services? [...] on filedocumented in this encounter Care Teams Card Seller Relationship Specialty Start Date End Date Froylan Louise MD PCP - General Family Practice 02/22/14 Froylan Louise MD Assigned PCP 03/13/14 2 Esthela Corea, RN Personal Advocate & Liaison Family Medicine 10/16 (PAL) documented as of this encounter
--- OUTSIDE RECORDS SUMMARY | 2022-05-15 22:49 | XMS_ITS | Encounter Summary ---
:1955 Author Organization [place] Address [address] [place] [address]. [place] [address] Care Team Providers Name Role Phone Froylan Louise MD Primary Care Provider Unavailable Froylan Louise MD Unavailable Unavailable Esthela Corea RN Unavailable Unavailable Encounter Details Date Type Department Care Team Description 01/12/2021 Anticoagulation [facility], Chronic deep vein thrombosis (DVT) of lower extremity, unspecified laterality, unspecified vein (H) (Primary Dx); Therapy Visit Anticoagulation Diana Conrad RN [facility] current use of anticoagulant therapy Clinic [address] [place] [address] Social History Tobacco Use Types [...] containing 4 or more times a w hoh 05/25/2021 alcohol? How many drinks containing alcohol [...] you attend pentecostalism or Patient refused 2020 gnosticist services? Do [...] date: Indefinite Send INR reminders to: [facility] Indications Chronic deep vein thrombosis (DVT) of lower extremity unspecified laterality unspecified vein (H) [I82.509] Long-term (current) use of anticoagulants [Z79.01] [Z79.01] Comments: Anticoagulation Care Providers Provider Role Specialty Phone number Froylan Louise MD Referring Family Medicine [phone] documented in this encounter Plan of Treatment Upcoming Encounters Date Type Specialty Care Team Description 05/20/2022 Lab Lab documented as of this encounter Visit Diagnoses Diagnosis Chronic deep vein thrombosis (DVT) of lo wer extremity, unspecified laterality, unspecified vein (H) - Primary terminal operator current use of anticoagulant t herapy documented in this encounter Care Teams Critical Care Clinical Nurse Specialist Relationship Specialty Start Date End Date Froylan Louise MD PCP - General Family Practice 02/22/14 Froylan Louise MD Assigned PCP 03/13/14 2 Esthela Corea, RN Personal Advocate & Liaison Family Medicine 10/16 (PAL) documented as of this encounter
--- OUTSIDE RECORDS SUMMARY | 2022-05-15 22:49 | XMS_ITS | Encounter Summary ---
:1955 Author Organization [place] Address [address] [place] [address] Care Team Providers Name Role Phone Froylan Louise MD Primary Care Provider Unavailable Froylan Louise MD Unavailable Unavailable Esthela Corea RN Unavailable Unavailable Encounter Details Date Type Department Care Team Description 01/01/2021 [facility] Chr onic deep vein thrombosis (DVT) of lower extremity, unspecified laterality, unspecified vein (H); [facility] termite renewal inspector current use of ant icoagulant therapy [address] [place] [address] Social History Tobacco Use [...] you attend episcopalian or Patient refused 2020 roman catholic services? [...] Address City/State/ZIP Code [place] [address] Lab [address] [facility] Lab (no room number, 1st floor of clinic) [place] [address], [facility] [address] [facility], 1st floor of clinic) documented in this encounter Visit Diagnoses Diagnosis Chronic deep vein thrombosis (DVT) of lo wer extremity, unspecified laterality, unspecified vein (H) termite renewal inspector current use of anticoagulant t herapy documented in this encounter Care Teams Microsoft Dynamics Consultant Relationship Specialty Start Date End Date Froylan Louise MD PCP - General Family Practice 02/22/14 Froylan Louise MD Assigned PCP 03/13/14 2 Esthela Corea RN Personal Advocate & Liaison Family Medicine 10/16 (PAL) documented as of this encounter
--- OUTSIDE RECORDS SUMMARY | 2022-05-15 22:49 | XMS_ITS | Encounter Summary ---
:1955 Author Organization [place] Address [address] [place] [address] Care Team Providers Name Role Phone Froylan Louise MD Primary Care Provider Unavailable Froylan Louise MD Unavailable Unavailable Esthela Corea RN Unavailable Unavailable Encounter Details Date Type Department Care Team Description 12/28/2020 Orders Only [facility] onic deep vein thrombosis (DVT) of lower extremity, unspecified laterality, unspecified vein (H); [facility] current use of ant icoagulants with INR goal of 2.0-3.0 [address] [place] [address] Social History Tobacco Use [...] or more times a w [place] 05/25/2021 alcohol? How many drinks containing alcohol [...] you attend muslim or Patient refused 2020 hoahaoism services? Do [...] unspecified section. laterality, unspecified vein (H) intermediate accountant current use of anticoagulants with INR goal of 2.0-3.0 documented in this encounter Results Capillary Blood Collection (12/28/2020 1:53 PM CDT) Patholo gist Method Time Signature Capillary Heelstick/Capi 12/28/2020 [facility] Blood llary 1:57 PM CDT CLINICS Collection [facility] Specimen Anatomical Collection Method Collection Time Receive d Time (Source) Location / / Volume Laterality 12/28/2020 1:53 PM 1:54 CDT PM CDT Froylan Louise MD LAB - LAB COMMUNICATION Performing Organization Address City/State/ZIP Code Phon e Number [facility] [address] [place] [address] (ABNORMAL) INR (12/28/2020 1:53 PM CDT) P athologist Signature INR 3.80 (H) 0.86 - 1.14 12/28/2020 [facility] 1:58 PM CDT [facility] Comment: This test is intended [...] Organization Address City/State/ZIP Code Phon e Number [facility] [address] [place] [address] documented in this encounter Visit Diagnoses Diagnosis Chronic deep vein thrombosis (DVT) of lo wer extremity, unspecified laterality, unspecified vein (H) [facility] current use of anticoagulants with INR goal of 2.0-3.0 documented in this encounter Care Teams Supply Crib Attendant Relationship Specialty Start Date End Date Froylan Louise MD PCP - General Family Practice 02/22/14 Froylan Louise MD Assigned PCP 03/13/14 2 Estheal Corea, RN Personal Advocate & Liaison Family Medicine 10/16 (PAL) documented as of this encounter
--- OUTSIDE RECORDS SUMMARY | 2022-05-15 22:49 | XMS_ITS | Encounter Summary ---
:1955 Author Organization [place] Address [address] [place] [address] Care Team Providers Name Role Phone Froylan [...] you attend cheondoism or Patient refused 2020 islam services? Do [...] filedocumented in this encounter Care Teams Quality Auditor Relationship Specialty Start Date End Date Froylan Louise MD PCP - General Family Practice 02/22/14 Froylan Louise MD Assigned PCP 03/13/14 2 Esthela Corea, RN Personal Advocate & Liaison Family Medicine 10/16 (PAL) documented as of this encounter
--- OUTSIDE RECORDS SUMMARY | 2022-05-15 22:49 | XMS_ITS | Encounter Summary ---
:1955 Author Organization [place] Address [address] [place] [address] Care Team Providers Name Role Phone Froylan Louise MD Primary Care Provider Unavailable Froylan Louise MD Unavailable Unavailable Esthela Corea RN Unavailable Unavailable Encounter Details Date Type Department Care Team Description 12/28/2020 Anticoagulation Therapy [facility] Audrey Louise Chronic deep vein thrombosis (DVT) of lower extremity, unspecified laterality, unspecified vein (H); Visit Clinic Chhaya Dubose MD [facility] current use of ant icoagulant therapy [address] [place] [address] Social History Tobacco Use Types [...] attend oriental orthodox or Patient refused 2020 anglican services? Do [...] date: Indefinite [facility] Indications Chronic deep vein thrombosis (DVT) of lower extremity unspecified laterality unspecified vein (H) [I82.509] Long-term (current) use of anticoagulants [Z79.01] [Z79.01] Comments: Anticoagulation Care Providers Provider Role Specialty Phone number Froylan Louise MD Referring Family Medicine [phone] documented in this encounter Plan of Treatment Upcoming Encounters Date Type Specialty Care Team Description 05/20/2022 Lab Lab documented as of this encounter Visit Diagnoses Diagnosis Chronic deep vein thrombosis (DVT) of lo wer extremity, unspecified laterality, unspecified vein (H) [facility] current use of anticoagulant t herapy documented in this encounter Care Teams Hospital Insurance Clerk Relationship Specialty Start Date End Date Froylan Louise MD PCP - General Family Practice 02/22/14 Froylan Louise MD Assigned PCP 03/13/14 2 Esthela Corea, RN Personal Advocate & Liaison Family Medicine 10/16 (PAL) documented as of this encounter
--- OUTSIDE RECORDS SUMMARY | 2022-05-15 22:49 | XMS_ITS | Encounter Summary ---
:1955 Author Organization [place] Address [address] [place] [address] Care Team Providers Name Role Phone Froylan Louise MD Primary Care Provider Unavailable Froylan Louise MD Unavailable Unavailable Esthela Corea RN Unavailable Unavailable Reason for Visit Reason Comments Medication Refill Encounter Details Date Type Department Care Team Description 01/09/2021 Refill [facility] Froylan Louise Ra, MD Medication Refill [address] [address] Social History Tobacco Use [...] you attend sikhism or Patient refused 2020 taoist services? Do [...] 01/09/2021 10:14 AM CDT Prescription approved per [facility] Refill Protocol. Herve Gallardo RN documented in this encounter Plan of Treatment Upcoming Encounters Date Type Specialty Care Team Description 05/20/2022 Lab Lab documented as of this encounter Visit Diagnoses Diagnosis Lichen planus documented in this encounter Care Teams Peanut Vendor Relationship Specialty Start Date End Date Froylan Louise MD PCP - General Family Practice 02/22/14 Froylan Louise MD Assigned PCP 03/13/14 2 Esthela Corea RN Personal Advocate & Liaison Family Medicine 10/16 (PAL) documented as of this encounter
--- OUTSIDE RECORDS SUMMARY | 2022-05-15 22:49 | XMS_ITS | Encounter Summary ---
:1955 Author Organization [place] Address [address] [place] [address] Care Team Providers Name Role Phone Froylan [...] you attend latter-day or Patient refused 2020 synagogue services? Do [...] on filedocumented in this encounter Care Teams Portal Developer Relationship Specialty Start Date End Date Froylan Louise MD PCP - General Family Practice 02/22/14 Froylan Louise MD Assigned PCP 03/13/14 2 Esthela Corea, RN Personal Advocate & Liaison Family Medicine 10/16 (PAL) documented as of this encounter
--- OUTSIDE RECORDS SUMMARY | 2022-05-15 22:49 | XMS_ITS | Encounter Summary ---
:1955 Author Organization [place] Address [address] [place] [address] Care Team Providers Name Role Phone Froylan Louise MD Primary Care Provider Unavailable Froylan Louise MD Unavailable Unavailable Esthela Corea RN Unavailable Unavailable Encounter Details Date Type Department Care Team Description 01/01/2021 Anticoagulation Therapy [facility] Audrey Louise Chronic deep vein thrombosis (DVT) of lower extremity, unspecified laterality, unspecified vein (H) (Primary Dx); Visit Clinic Chhaya Dubose MD terminal operations manager current use of ant icoagulant therapy [address] [place] [address] Social History Tobacco Use Types [...] you attend pentecostalism or Patient refused 2020 confucianist services? Do [...] a call. He can be reached at [phone]. Thanks, Sophie Amaya RN 01/01/21 at 4:59 [...] Yes: Pt reports possible knee infection, seeing customer relationship specialist tomorrow. He will call and let [...] lab recheck maybe needed. Plan made per [facility] anticoagulation protocol Hilda Childers RN Anticoagulation Clinic 01/01/2021 Anticoagulation Episode Summary Current INR goal: 2.0-3.0 TTR: 70.9 % (1 y) Target end date: Indefinite Send INR reminders to: [facility] Indications Chronic deep vein thrombosis (DVT) of lower extremity unspecified laterality unspecified vein (H) [I82.509] Long-term (current) use of anticoagulants [Z79.01] [Z79.01] Comments: Anticoagulation Care Providers Provider Role Specialty Phone number Froylan Louise MD Referring Family Medicine [phone] documented in this encounter Plan of Treatment Upcoming Encounters Date Type Specialty Care Team Description 05/20/2022 Lab Lab documented as of this encounter Visit Diagnoses Diagnosis Chronic deep vein thrombosis (DVT) of lo wer extremity, unspecified laterality, unspecified vein (H) - Primary terminal operations manager current use of anticoagulant t herapy documented in this encounter Care Teams Tapeman Relationship Specialty Start Date End Date Froylan Louise MD PCP - General Family Practice 02/22/14 Froylan Louise MD Assigned PCP 03/13/14 2 Esthela Corea RN Personal Advocate & Liaison Family Medicine 10/16 (PAL) documented as of this encounter
--- OUTSIDE RECORDS SUMMARY | 2022-05-15 22:49 | XMS_ITS | Encounter Summary ---
:1955 Author Organization [place] Address [address] [place] [address] Care Team Providers Name Role Phone Froylan [...] you attend christianity or Patient refused 2020 yazdanism services? Do [...] on filedocumented in this encounter Care Teams Tube Fitter Relationship Specialty Start Date End Date Froylan Louise MD PCP - General Family Practice 02/22/14 Froylan Louise MD Assigned PCP 03/13/14 2 Esthela Corea, RN Personal Advocate & Liaison Family Medicine 10/16 (PAL) documented as of this encounter
--- OUTSIDE RECORDS SUMMARY | 2022-05-15 22:49 | XMS_ITS | Encounter Summary ---
:1955 Author Organization [place] Address [facility] [place] [address] Care Team Providers Name Role Phone Froylan Louise MD Primary Care Provider Unavailable Froylan Lousie MD Unavailable Unavailable Esthela Corea RN Unavailable [...] PHYLLIS AFLO VAC PLACEMENT LL2 [place] [address] Phone: Referral ID Status Reason Start Date Expiration Date Visits Requ ested Visits Authorized [id number] 1 1 Encounter Details Date Type Department Care Team Description 01/15/[address] [facility] Lon Valle MD [facility] [address] [place] [address] [place] [facility] May Monte, CONSUMER SERVICES ADVISOR CONTRACT ASSOCIATE MANAGER [address] [place] [address] [address] Services [address] [...] recorded are pre- induction. Shelly Vigil APRN CONTRACT ASSOCIATE MANAGER 0922 Antibiotic Complete 09 AN INCISION 0928 MD Present 1009 an stop data 1019 An Stop Electronically s igned by May Monte APRN CONTRACT ASSOCIATE MANAGER on Dec 10:19 AM Name Total fentaNYL [...] 06/12/18 0941 by Bilateral; Rectum Gemini Mckeon, CONSUMER SERVICES ADVISOR PERSONAL CARER Wound 06/12/18; 0945; 06/12/18 0945 by Anterior, [...] you attend zoroastrianism or Patient refused 2020 mu-ism services? Do [...] and drainage of abscess. POUCHOSCOPY ; Surgeon: Chaes Suazo MD; Location: [facility] OR ??? bindu [...] deficiency, history of bilateral extremity venous thromboses, Rawson filter placement. Anticardiolipin antibody positive. Varicose veins [...] and realistic alternatives discussed. Questions answered and patient/sales representative wire rope(s) expressed understanding. - Discussed with: Patient Postoperative [...] mL/hr documented in this encounter Care Teams Flat Lock Machine Operator Relationship Specialty Start Date End Date Froylan Louise MD PCP - General Family Practice 02/22/14 Froylan Louise MD Assigned PCP 03/13/14 2 Esthela Coera RN Personal Advocate & Liaison Family Medicine 10/16 (PAL) documented as of this encounter
--- OUTSIDE RECORDS SUMMARY | 2022-05-15 22:49 | XMS_ITS | Encounter Summary ---
:1955 Author Organization [place] Address [facility] [place] [address] Care Team Providers Name Role Phone Froylan Louise MD Primary Care Provider Unavailable Froylan Louise MD Unavailable Unavailable Esthela Corea RN Unavailable Unavailable Encounter Details Date Type Department Care Team Description 01/02/2021 [facility] Maggie Kruger Anticoagulation Clin ic RN [address] [place], [place] [phone] Social History Tobacco Use [...] you attend religious or Patient refused 2020 spiritism services? Do [...] take the full dose tonight? Call back [phone]. Maggie Kruger RN, BSN, PHN Anticoagulation Clinic [phone] documented in this encounter Plan of Treatment Upcoming Encounters Date Type Specialty Care Team Description 05/20/2022 Lab Lab documented as of this encounter Visit Diagnoses Diagnosis Chronic deep vein thrombosis (DVT) of lo wer extremity, unspecified laterality, unspecified vein (H) - Primary [facility]DC current use of anticoagulant t herapy documented in this encounter Care Teams Resource Development Manager Relationship Specialty Start Date End Date Froylan Louise MD PCP - General Family Practice 02/22/14 Froylan Louise MD Assigned PCP 03/13/14 2 Esthela Corea RN Personal Advocate & Liaison Family Medicine 10/16 (PAL) documented as of this encounter
--- OUTSIDE RECORDS SUMMARY | 2022-05-15 22:49 | XMS_ITS | Encounter Summary ---
:1955 Author Organization [place] Address [address] [place] [address] Care Team Providers Name Role Phone Froylan [...] [facility] [address] [place] [address] [place] [address] Fax: Referral ID Status Reason Start Date Expiration Date Visits Requ ested Visits Authorized [id number] Closed 12/25/2020 12/25/2021 1 1 Reason for Visit Reason Comments WOUND CARE Consultation (Routine) - Closed Specialty Diagnoses / Procedures Referred By Contact Refer red To Contact Wound Care Diagnoses Open knee wound, left, initial encounter Quincy Carvalho PA-C [facility] [address] [place] [address] [place] [address] Fax: Referral ID Status Reason Start Date Expiration Date Visits Requ ested Visits Authorized [id number] Closed 12/25/2020 12/25/2021 1 1 Encounter Details Date Type Department Care Team Description 01/02/2021 Hospital Encounter [facility] Jayesh Mac Open knee wound, Wound Clinic [place] Viveros PA-C left, initial [address] WOUND HEALING encounter [address] [place] [address] [address] [place] [id number] Social History Tobacco Use Types Packs/Day Years [...] you attend gnosticism or Patient refused 2020 scientology services? Do [...] from the original note were not included. [facility] [address] [place] [address] Call us at [phone] if you have any questions about your [...] powder - 24g per scoop (on average) Belarusian yogurt - 23g per 8oz Chicken or Tar [place]el - 23g per 3oz Fish - 20-25g per 3oz Beef - 18-23g per 3oz [place] beans - 20g per cup Cottage cheese [...] on your patient satisfaction survey form that [facility] will be sending you. It was [...] any billing related questions please call the [facility] Business office at [phone]. The clinic staff does not handle billing [...] proximal vein of both lower extremities (H), jail current use of anticoagulants with INR [...] as laterality, unspecified advised by vein (H), jail provider. Then current use of continue daily anticoagulant therapy injections until INR 2.3 or higher (or >2.0 twice, 24 hours apart). Uctvlfpjltq-Qitxhmwpo-Bkun Inhale 1 puff into 1 Inhaler 11 [...] from the original note were not included. [facility] ASSESSMENT: 1. (S81.002A) Open [...] fevers, chills, or nausea. Works as a [employer]. He also likes to bike. Typically wears [...] encounter documented in this encounter Care Teams Engineering Teacher Relationship Specialty Start Date End Date Froylan Louise MD PCP - General Family Practice 02/22/14 Froylan Louise MD Assigned PCP 03/13/14 2 Esthela Corea, RN Personal Advocate & Liaison Family Medicine 10/16 (PAL) documented as of this encounter
--- OUTSIDE RECORDS SUMMARY | 2022-05-15 22:49 | XMS_ITS | Encounter Summary ---
:1955 Author Organization [place] Address [address] [place] [address] Care Team Providers Name Role Phone Froylan [...] containing 4 or more times a w [place] 05/25/2021 alcohol? How many drinks containing alcohol [...] attend roman catholic or Patient refused 2020 anabaptist services? Do [...] on filedocumented in this encounter Care Teams Hat Block Maker Relationship Specialty Start Date End Date Froylan Louise MD PCP - General Family Practice 02/22/14 Froylan Louise MD Assigned PCP 03/13/14 2 Esthela Corea, RN Personal Advocate & Liaison Family Medicine 10/16 (PAL) documented as of this encounter
--- OUTSIDE RECORDS SUMMARY | 2022-05-15 22:49 | XMS_ITS | Encounter Summary ---
:1955 Author Organization [place] Address [facility] [place] [address] Care Team Providers Name Role Phone Froylan Louise MD Primary Care Provider Unavailable Froylan Louise MD Unavailable Unavailable Esthela Corea RN Unavailable Unavailable Reason for Visit Reason Comments WOUND CARE Encounter Details Date Type Department Care Team Description 01/09/2021 Hospital Encounter [facility] Uriel Nuñez Op en knee wound, Wound Clinic [place] Conrad MD left, initial [address] encounter [address] [place] [address] Social History Tobacco Use Types Packs/Day [...] attend roman catholic or Patient refused 2020 mu-ism services? Do [...] from the original note were not included. [facility] [address] [place] [address] Call us at [phone] if you have any questions about your [...] Diosmin 1 tablet twice daily order from [email or web address] or call [phone] Bringone bottle to [facility] Wound care recommendations to left knee wound [...] that [facility] will be sending you. If you have any billing related questions please call the [facility] Business office at [phone]. The clinic staff does not handle billing [...] proximal vein of both lower extremities (H), half-way current use of anticoagulants with INR [...] as laterality, unspecified advised by vein (H), half-way provider. Then current use of continue daily anticoagulant therapy injections until INR 2.3 or higher (or >2.0 twice, 24 hours apart). enoxaparin ANTICOAGULANT Inject 0.4 mLs (40 2.4 mL 1 08/202001/10/2021 (LOVENOX) 40 MG/0.4ML mg) Subcutaneous syringeIndications: daily Hold day of Chronic deep vein procedure. Restart thrombosis (DVT) of lower 24-48 hours after extremity, unspecified procedure, as laterality, unspecified advised by vein (H), half-way provider. Then current use of continue daily anticoagulant therapy injections until INR 2.3 or higher (or >2.0 twice, 24 hours apart). Lqfzvdstzdj-Tmjsyabtp-Vswf Inhale 1 puff into 0 02/05/2021 nterol (TRELEGY ELLIPTA) the lungs every 100-62.5-25 MCG/INH oral morning inhaler Gzyysbtvhko-Rmhtlyruq-Csls Inhale 1 puff into 1 Inhaler 11 [...] 0 022 (CHOLECALCIFEROL) 250 mcg mouth every (61859 units) capsule morning warfarin ANTICOAGULANT TAKE 5MG [...] the original note were not included. [facility] [place] Progress Note Subject: Virgil Christine consultation for [...] has been seen by Amaya Yost, physician chef assistant, notes reviewed. He denies fever chills [...] positive ??? Mild persistent asthma ??? Health Shelter ? ? Hyperlipidemia LDL goal <130 ??? [...] Other Topics Concern ??? Parent/sibling w/ CABG, SC or angioplasty before 65F 55M? No Social [...] Gatherings with Friends and Family: ??? Attends Uatsdin Services: ??? Active Member of Clubs or [...] oil-omega-3 fatty acids 1000 MG capsule ??? Fksryxfptgr-Hehazbdhh-Dubscxfafq (TRELEGY ELLIPTA) 100-62.5-25 MCG/INH oral inhaler ??? [...] Anaerobic bacterial culture (01/09/2021 12:07 PM CDT) [facility] Method Time Signature Culture 2+ Finegoldia JAMAAL [...] MICRO GENERAL ORDERABL ES Performing Organization Address City/[facility]/ZIP [facility] Phon e Number [facility] [place] [place] [phone] Diag. Lab [address] [facility], Room [address]297 [facility] Infectious [place], [place] [phone] Diseases Diagnostic [id number], [place] Lab (IDDL) [address] [facility], Room D297 (ABNORMAL) Wound Aerobic Bacterial Culture Routine with Gram Stain (01/09/2021 12:07 PM CDT) [facility] Method Time Signature Culture 2+ Normal saadia [...] MICRO GENERAL ORDERABL ES Performing Organization Address City/[facility] Code Phon e Number [facility] [place] [place] [phone] Diag. Lab [address] [facility], Room D297 [facility] Infectious [place], [place] [phone] Diseases Diagnostic [id number], [place] Lab (IDDL) [address] [facility], Room D297 documented in this encounter Visit Diagnoses Diagnosis Open knee wound, left, initial encounter documented in this encounter Care Teams Production Machine Shop Supervisor Relationship Specialty Start Date End Date Froylan Louise MD PCP - General Family Practice 02/22/14 Froylan Louise MD Assigned PCP 03/13/14 2 Nahomy, Esthela Conrad RN Personal Advocate & Liaison Family Medicine 10/16 (PAL) documented as of this encounter
--- OUTSIDE RECORDS SUMMARY | 2022-05-15 22:49 | XMS_ITS | Encounter Summary ---
:1955 Author Organization [place] Address [facility] [place] [address] Care Team Providers Name Role Phone Froylan Louise MD Primary Care Provider Unavailable Froylan Louise MD Unavailable Unavailable Esthela Corea RN Unavailable Unavailable Reason for Visit Reason Comments Pre-Op Exam Encounter Details Date Type Department Care Team Description 01/12/2021 Office Visit [facility] So Dodd MD Mild persistent asthma without complicat ion (Primary Dx); Clinic [place] [id number] [place] [address] Pre-operative general physical examinati on; [address] [place], [place] Encounter for screening for other viral diseases; [place] [address] Chronic deep vein thrombosis (DVT) of lo wer extremity, unspecified laterality, unspecified vein (H); [address] store manager current use of ant icoagulant therapy; Morbid obesity (H); [phone] Benign essentia l hypertension (Fax) Social History [...] you attend mu-ism or Patient refused 2020 yazidism services? Do [...] PM) Pre-Operative Physical with So Dodd MD [facility] ([facility] ) [address] [facility] [address] Jan 26, 2021 1:10 PM Return Visit with WOUND HEALING NURSE [facility] Wound [facility] ([facility] ) [address] [facility] [address] Feb 02, 2021 1:10 PM Return Visit with WOUND HEALING NURSE [facility] Wound [facility] ([facility] ) [address] [place] [address] Feb 09, 2021 1:10 PM Return Visit with WOUND HEALING NURSE [facility] Wound Clinic [place] ([facility] ) [address] [place] [address] Appointment Notes for this encounter: pre op [...] oil-omega-3 fatty acids 1000 MG capsule ??? Vkatwkorxow-Eahcwvdcd-Jnmriwyptw (TRELEGY ELLIPTA) 100-62.5-25 MCG/INH oral inhaler ??? hydrochlorothiazide (HYDRODIURIL) 25 MG tablet ??? lactobacillus rhamnosus, GG, ([facility]) packet ??? loperamide (IMODIUM) 2 MG [...] Dodd MD - 01/12/2021 1:00 PM CDT [facility] [id number] [place] [address] Primary Provider: Froylan Louise PREOPERATIVE EVALUATION: Today's date: 01/12/2021 Virgil Christine is a 65 year old male who presents for a preoperative evaluation. Today INR -1.6 Surgical Information: Surgery/Procedure: L Knee wound debridement for Left knee wound Surgery Location: [facility] Surgeon: Dr. Nuñez Surgery Date: 01/15/21 Time [...] vein thrombosis s/p bindu filter placement . [facility] current use of anticoagulant therapy - INR [...] Problem List Diagnosis Date Noted ??? Health Shelter 07/16/2011 Priority: High EMERGENCY CARE PLAN Presenting Problem Signs and Symptoms Treatment Plan Questions or conerns during clinic hours I will call the clinic directly Questions or conerns outside clinic hours I will call the 24 hour nurse line at [phone] Patient needs to schedule an appointment I will call the 24 hour scheduling team at [phone] orclinic directly Same day treatment I will call the clinic first, nurse line if after hours, urgent care and expresscare if needed DX V65.8 REPLACED WITH [address] [facility] (09/28/2012) ??? Morbid obesity (H) 01/12/2021 Priority: [...] ??? POUCHOSCOPY N/A 10/12/2020 Procedure: POUCHOSCOPY; Surgeon: Cahse Suazo MD; Location: [facility] ??? RESECTION [...] every morning ??? lactobacillus rhamnosus, GG, ([employer]) packet Take 1 packet by mouth 2 [...] 1,000 mcg by mouth every morning ??? Xiktlyvagnq-Xkfusdqad-Lfavbyhkiz (TRELEGY ELLIPTA) 100-62.5-25 MCG/INH oral inhaler Inhale 1 puff into the lungs every morning ??? hydrochlorothiazide (HYDRODIURIL) 25 MG tablet Take 25 mg by mouth every morning ??? terazosin (HYTRIN) 2 MG capsule Take 2 mg by mouth At Bedtime ??? vitamin D3 (CHOLECALCIFEROL) 250 mcg (99784 units) capsule Take 1 capsule by mouth [...] results unspecified section. laterality, unspecified vein (H) store manager current use of anticoagulant therapy documented in [...] This shanthi t was validated by the [facility] Infectious Diseases Diag nostic Laboratory. This laboratory is certified under the Clinic al Laboratory Improvement Amendments of 1988 (CLIA-88) as qualifie d to perform high and/or moderate complexity laboratory testing. Uriel Nuñez MD LAB - MICRO GENERAL ORDERABL ES Performing Organization Address City/State/ZIP Code Phon e Number [facility] [place] [phone] Diag. Lab [address] [facility], Room [address]297 [facility] Infectious [place], [place] [phone] Diseases Diagnostic [id number], [place] Lab (IDDL) [address] [facility], Room D297 (ABNORMAL) INR point of [...] Address City/State/ZIP Code Phon [place] [phone] Lab [address] [facility] Lab (no room number, 1st floor of clinic) [place] [address], [phone] Clinic - [facility] [address] [facility] Lab (no room [...] [facility] current use of anticoagulant t herapy Morbid obesity (H) Morbid obesity Benign essential hypertension Essential hypertension, benign documented in this encounter Care Teams Filer And Sander Relationship Specialty Start Date End Date Froylan Louise MD PCP - General Family Practice 02/22/14 Froylan Louise MD Assigned PCP 03/13/14 2 Esthela Corea, RN Personal Advocate & Liaison Family Medicine 10/16 (PAL) documented as of this encounter
--- OUTSIDE RECORDS SUMMARY | 2022-05-15 22:49 | XMS_ITS | Encounter Summary ---
:1955 Author Organization [place] Address [address] [place] [address] Care Team Providers Name Role Phone Froylan Louise MD Primary Care Provider Unavailable Froylan Louise MD Unavailable Unavailable Esthela Corea RN Unavailable Unavailable Reason for Visit Reason Onset Date Comments surgery 01/09/2021 Encounter Details Date Type Department Care Team Description 01/09/2021 [facility] Froylan Louise Ra, MD surgery [address] [address] Social History Tobacco Use [...] containing 4 or more times a w [place] 05/25/2021 alcohol? How many [...] you attend sikhism or Patient refused 2020 muslim services? Do [...] herapy documented in this encounter Care Teams Apartment Leasing Specialist Relationship Specialty Start Date End Date Froylan Louise MD PCP - General Family Practice 02/22/14 Froylan Louise MD Assigned PCP 03/13/14 2 Esthela Corea RN Personal Advocate & Liaison Family Medicine 10/16 (PAL) documented as of this encounter
--- OUTSIDE RECORDS SUMMARY | 2022-05-15 22:49 | XMS_ITS | Encounter Summary ---
:1955 Author Organization [place] Address [facility] [place] [address] Care Team Providers Name Role Phone Froylan Louise MD Primary Care Provider Unavailable Froylan Louise MD Unavailable Unavailable Esthela Corea RN Unavailable Unavailable Encounter Details Date Type Department Care Team Description 01/09/2021 Orders Only [facility] Uriel Nuñez, [facility] screening for other Program [address] [place] [address] viral diseases [address] [place] [address] [place] [address] Social History Tobacco Use Types [...] you attend rastafari or Patient refused 2020 jewish services? Do [...] diseases documented in this encounter Care Teams Call Center Assistant Relationship Specialty Start Date End Date Forylan Louise MD PCP - General Family Practice 02/22/14 Froylan Louise MD Assigned PCP 03/13/14 2 Esthela Corea RN Personal Advocate & Liaison Family Medicine 10/16 (PAL) documented as of this encounter
--- OUTSIDE RECORDS SUMMARY | 2022-05-15 22:49 | XMS_ITS | Encounter Summary ---
:1955 Author Organization [place] Address [address] [place] [address] Care Team Providers Name Role Phone Froylan Louise MD Primary Care Provider Unavailable Froyaln Louise MD Unavailable Unavailable Esthela Corea RN Unavailable Unavailable Reason for Visit Reason Onset Date Comments surgery 01/09/2021 INR with bridge need ed Encounter Details Date Type Department Care Team Description 01/09/2021 Telephone [facility] Froylan Louise, surg mustapha (INR with Clinic Chhaya VILLASEÑOR bridge needed ) [address] [place] [address] Social History Tobacco Use Types [...] you attend adventism or Patient refused 2020 adventist services? Do [...] No answer. LVM to return call to [phone]. Also sent MyC message with detailed day-by-day [...] days after resuming warfarin ? Susanna Mendoza [facility] Subjective/Objective: Virgil Christine, a 65 year old male Reason for Anticoagulation: DVT??2006, 2007, Lupus anticoagulant positive Goal INR Range: 2.0-3.0 Patient bridged in past: Yes:prophylactic enoxaparin for last three bridge plans (June, September, and November 2020) ?? Wt Readings from Last 3 Encounters: 01/02/21 108.9 kg (240 lb) 12/25/20 113.4 kg (250 lb) 10/16/20 113.9 kg (251 lb) [place] body weight: 75.3 kg (166 lb 0.1 [...] to Susanna Mendoza, PharmD. Rosmery Thorne RN [facility] [place] Tele[facility] Encounter - Esthela Corea RN - [...] unspecified vein (H) - Primary ferry terminal agent current use of anticoagulant t herapy documented in this encounter Care Teams Transistor Tester Relationship Specialty Start Date End Date Froylan Louise MD PCP - General Family Practice 02/22/14 Froylan Louise MD Assigned PCP 03/13/14 2 Esthela Corea, RN Personal Advocate & Liaison Family Medicine 10/16 (PAL) documented as of this encounter
--- OUTSIDE RECORDS SUMMARY | 2022-05-15 22:49 | XMS_ITS | Encounter Summary ---
:1955 Author Organization [place] Address [address] [place] [address]. [place] [address] Care Team Providers Name Role Phone Froylan Louise MD Primary Care Provider Unavailable Froylan Louise MD Unavailable Unavailable Esthela Corea RN Unavailable Unavailable Encounter Details Date Type Department Care Team Description 01/04/2021 Anticoagulation [facility], Chronic deep vein thrombosis (DVT) of lower extremity, unspecified laterality, unspecified vein (H) (Primary Dx); Therapy Visit Anticoagulation Shaniqua Hein RN [facility] current use of anticoagulant therapy Clinic [address] [place] [address] Social History Tobacco Use Types [...] you attend latter-day or Patient refused 2020 lutheran services? Do [...] date: Indefinite Send INR reminders to: [facility] Indications Chronic deep vein thrombosis (DVT) of lower extremity unspecified laterality unspecified vein (H) [I82.509] Long-term (current) use of anticoagulants [Z79.01] [Z79.01] Comments: Anticoagulation Care Providers Provider Role Specialty Phone number Froylan Louise MD Referring Family Medicine [phone] documented in this encounter Plan of Treatment Upcoming Encounters Date Type Specialty Care Team Description 05/20/2022 Lab Lab documented as of this encounter Visit Diagnoses Diagnosis Chronic deep vein thrombosis (DVT) of lo wer extremity, unspecified laterality, unspecified vein (H) - Primary [facility] current use of anticoagulant t herapy documented in this encounter Care Teams It Analyst Relationship Specialty Start Date End Date Froylan Louise MD PCP - General Family Practice 02/22/14 Froylan Louise MD Assigned PCP 03/13/14 2 Esthela Corea, RN Personal Advocate & Liaison Family Medicine 10/16 (PAL) documented as of this encounter
--- OUTSIDE RECORDS SUMMARY | 2022-05-15 22:50 | XMS_ITS | Encounter Summary ---
:1955 Author Organization [place] Address [address] [place] [address] Care Team Providers Name Role Phone Froylan Louise MD Primary Care Provider Unavailable Froylan Louise MD Unavailable Unavailable Esthela Corea RN Unavailable Unavailable Reason for Visit Reason Onset Date Comments Erroneous encounter-disregard 12/25/2020 Encounter Details Date Type Department Care Team Description 12/25/2020 [facility] Froylan Louise Erro neous [facility] Chhaya VILLASEÑOR encounter-disregard [address] [place] [address] Social History Tobacco Use Types [...] you attend methodist or Patient refused 2020 yazdanism services? Do [...] on filedocumented in this encounter Care Teams Brake Drum Molder Relationship Specialty Start Date End Date Froylan Louise MD PCP - General Family Practice 02/22/14 Froylan Louise MD Assigned PCP 03/13/14 2 Esthela Corea RN Personal Advocate & Liaison Family Medicine 10/16 (PAL) documented as of this encounter
--- OUTSIDE RECORDS SUMMARY | 2022-05-15 22:50 | XMS_ITS | Encounter Summary ---
:1955 Author Organization [place] Address [address] [place] [address] Care Team Providers Name Role Phone Froylan Louise MD Primary Care Provider Unavailable Froylan Louise MD Unavailable Unavailable Esthela Corea RN Unavailable Unavailable Reason for Visit Reason Onset Date Comments Medication Problem 12/13/2020 Side effects COVID v accine Encounter Details Date Type Department Care Team Description 12/13/2020 [facility] Froylan Louise, [facility] cation Problem Clinic Chhaya VILLASEÑOR (Side effects COVID [address] [facility] vaccine) [place] [address] Social History Tobacco Use Types [...] containing 4 or more times a w [place] 05/25/2021 alcohol? How many drinks containing alcohol [...] you attend yazdanism or Patient refused 2020 restoration services? Do [...] filedocumented in this encounter Care Teams Bedspread Seamer Relationship Specialty Start Date End Date Froylan Louise MD PCP - General Family Practice 02/22/14 Froylan Louise MD Assigned PCP 03/13/14 2 Esthela Corea RN Personal Advocate & Liaison Family Medicine 10/16 (PAL) documented as of this encounter
--- OUTSIDE RECORDS SUMMARY | 2022-05-15 22:50 | XMS_ITS | Encounter Summary ---
:1955 Author Organization [place] Address [address] [place] [address] Care Team Providers Name Role Phone Froylan Louise MD Primary Care Provider Unavailable Froylan Louise MD Unavailable Unavailable Esthela Corea RN Unavailable Unavailable Reason for Visit Reason Comments Allied Health Visit bp Encounter Details Date Type Department Care Team Description 12/25/2020 Allied Health/Nurse Health [facility] Visit Visit Clinic [place] () [id number] [place] [address] Social History Tobacco Use Types Packs/Day [...] you attend judaism or Patient refused 2020 hindu services? Do [...] hypertension documented in this encounter Care Teams Cloth Mercerizing Supervisor Relationship Specialty Start Date End Date Froylan Louise MD PCP - General Family Practice 9/2/14 7/ 20/22 Froylan Louise MD Assigned PCP 03/13/14 2 Esthela Corea RN Personal Advocate & Liaison Family Medicine 10/16 (PAL) documented as of this encounter
--- OUTSIDE RECORDS SUMMARY | 2022-05-15 22:50 | XMS_ITS | Encounter Summary ---
:1955 Author Organization [place] Address [address] [place] [address] Care Team Providers Name Role Phone Froylan [...] you attend evangelical or Patient refused 2020 pentecostalism services? Do [...] on filedocumented in this encounter Care Teams Front End Driver Relationship Specialty Start Date End Date Froylan Louise MD PCP - General Family Practice 02/22/14 Froylan Louise MD Assigned PCP 03/13/14 2 Esthela Corea, RN Personal Advocate & Liaison Family Medicine 10/16 (PAL) documented as of this encounter
--- OUTSIDE RECORDS SUMMARY | 2022-05-15 22:50 | XMS_ITS | Encounter Summary ---
:1955 Author Organization [place] Address [address] [place] [address] Care Team Providers Name Role Phone Froylan [...] you attend evangelical or Patient refused 2020 anglican services? Do [...] on filedocumented in this encounter Care Teams Pneumatic System Conveyor Operator Relationship Specialty Start Date End Date Froylan Louise MD PCP - General Family Practice 02/22/14 Froylan Louise MD Assigned PCP 03/13/14 2 Esthela Corea, RN Personal Advocate & Liaison Family Medicine 10/16 (PAL) documented as of this encounter
--- OUTSIDE RECORDS SUMMARY | 2022-05-15 22:50 | XMS_ITS | Encounter Summary ---
:1955 Author Organization [place] Address [address] [place] [address] Care Team Providers Name Role Phone Froylan [...] you attend zoroastrianism or Patient refused 2020 mosque services? Do [...] on filedocumented in this encounter Care Teams Mixer Diamond Powder Relationship Specialty Start Date End Date Froylan Louise MD PCP - General Family Practice 02/22/14 So Dodd MD PCP - General Family Medicine 01/10/22 01/17/22 [address] [place], [place] [id number] Froylan Louise MD PCP - General Family Medicine 01/18/22 So Dodd MD PCP - General Family Medicine 02/21/22 [address] [place] [address] Froylan Louise MD Assigned PCP 03/13/14 2 Esthela Corea, RN Personal Advocate & Liaison Family Medicine 10/16 (PAL) So Dodd MD Assigned PCP 01/05/22 [address] [place] [address] documented as of this encounter
--- OUTSIDE RECORDS SUMMARY | 2022-05-15 22:50 | XMS_ITS | Encounter Summary ---
:1955 Author Organization [place] Address [address] [place] [address]. [place] [address] Care Team Providers Name Role Phone Froylan Louise MD Primary Care Provider Unavailable Froylan Louise MD Unavailable Unavailable Esthela Corea RN Unavailable Unavailable Encounter Details Date Type Department Care Team Description 12/12/2020 [facility] Swathi Rose [place] MD [address] [place] [id number] [phone] Social History Tobacco Use Types Packs/Day Years [...] you attend temple or Patient refused 2020 scientologist services? Do [...] on filedocumented in this encounter Care Teams Tc Operator Relationship Specialty Start Date End Date Froylan Louise MD PCP - General Family Practice 02/22/14 Froylan Louise MD Assigned PCP 03/13/14 2 Esthela Corea RN Personal Advocate & Liaison Family Medicine 10/16 (PAL) documented as of this encounter
--- OUTSIDE RECORDS SUMMARY | 2022-05-15 22:50 | XMS_ITS | Encounter Summary ---
:1955 Author Organization [place] Address [address] [place] [address] Care Team Providers Name Role Phone Froylan Louise MD Primary Care Provider Unavailable Froylan Louise MD Unavailable Unavailable Esthela Corea RN Unavailable Unavailable Encounter Details Date Type Department Care Team Description 12/25/2020 Anticoagulation Therapy [facility] Audrey Louise Chronic deep vein thrombosis (DVT) of lower extremity, unspecified laterality, unspecified vein (H); Visit Clinic Chhaya Dubose MD group home current use of ant icoagulant therapy [address] [place] [address] Social History Tobacco Use Types [...] you attend quaker or Patient refused 2020 judaism services? Do [...] ago, is still open and painful. Having shoveler take a look at it while in [...] Indefinite Send INR reminders to: [facility] Indications Chronic deep vein thrombosis (DVT) of lower extremity unspecified laterality unspecified vein (H) [I82.509] Long-term (current) use of anticoagulants [Z79.01] [Z79.01] Comments: Anticoagulation Care Providers Provider Role Specialty Phone number Froylan Louise MD Referring Family Medicine [phone] documented in this encounter Plan of Treatment Upcoming Encounters Date Type Specialty Care Team Description 05/20/2022 Lab Lab documented as of this encounter Visit Diagnoses Diagnosis Chronic deep vein thrombosis (DVT) of lo wer extremity, unspecified laterality, unspecified vein (H) group home current use of anticoagulant t herapy documented in this encounter Care Teams Wallpaper Inspector Relationship Specialty Start Date End Date Froylan Louise MD PCP - General Family Practice 02/22/14 Froylan Louise MD Assigned PCP 03/13/14 2 Esthela Corea, RN Personal Advocate & Liaison Family Medicine 10/16 (PAL) documented as of this encounter
--- OUTSIDE RECORDS SUMMARY | 2022-05-15 22:50 | XMS_ITS | Encounter Summary ---
:1955 Author Organization [place] Address [address] [place] [address] Care Team Providers Name Role Phone Froylan Louise MD Primary Care Provider Unavailable Froylan Louise MD Unavailable Unavailable Esthela Corea RN Unavailable Unavailable Encounter Details Date Type Department Care Team Description 12/11/2020 Anticoagulation Therapy [facility] Audrey Louise Chronic deep vein thrombosis (DVT) of lower extremity, unspecified laterality, unspecified vein (H); Visit Clinic Chhaya Dubose MD [facility] current use of ant icoagulant therapy [address] [place] [address] Social History Tobacco Use Types [...] containing 4 or more times a w [place] 05/25/2021 alcohol? How many drinks containing alcohol [...] you attend shinto or Patient refused 2020 cheondoism services? Do [...] abx (patient note sure of name) and Ophelia. Experienced nausea so quite both after one dose. However, has since had the Ophelia again for back pain and no nausea. [...] he still has it at home from [facility] over a year ago). Patient stated [...] abx (patient note sure of name) and Ophelia. Experienced nausea so quite both after one dose. However, has since had the Ophelia again for back pain and no nausea. [...] he still has it at home from [facility] over a year ago). Patient stated [...] Preferred lab: Send INR reminders to: [facility] Comments: Anticoagulation Care Providers Provider Role Specialty Phone number Froylan Louise MD Referring Family Medicine [phone] See the Encounter Report to view Anticoagulation [...] herapy documented in this encounter Care Teams Technical Services Assistant Relationship Specialty Start Date End Date Froylan Louise MD PCP - General Family Practice 02/22/14 Froylan Louise MD Assigned PCP 03/13/14 2 Esthela Coera RN Personal Advocate & Liaison Family Medicine 10/16 (PAL) documented as of this encounter
--- OUTSIDE RECORDS SUMMARY | 2022-05-15 22:50 | XMS_ITS | Encounter Summary ---
:1955 Author Organization [place] Address [address] [place] [address] Care Team Providers Name Role Phone Froylan Louise MD Primary Care Provider Unavailable Froylan Louise MD Unavailable Unavailable Esthela Corea RN Unavailable Unavailable Encounter Details Date Type Department Care Team Description 12/25/2020 Orders Only [facility] onic deep vein thrombosis (DVT) of lower extremity, unspecified laterality, unspecified vein (H); [facility] current use of ant icoagulants with INR goal of 2.0-3.0 [address] [place] [address] Social History Tobacco Use [...] containing 4 or more times a w jamul 05/25/2021 alcohol? How many drinks containing alcohol [...] you attend taoism or Patient refused 2020 synagogue services? Do [...] unspecified vein (H) [facility] current use of anticoagulants with INR goal of 2.0-3.0 documented in this encounter Results Capillary Blood Collection (12/25/2020 1:44 PM CDT) Patholo gist Method Time Signature Capillary Capillary 12/25/2020 [place] Blood collection 1:45 PM CDT CLINICS Collection performed [facility] [place] Specimen Anatomical Collection Method Collection Time Receive d Time (Source) Location / / Volume Laterality 12/25/2020 1:44 PM 1:45 CDT PM CDT Froylan Louise MD LAB - LAB COMMUNICATION Performing Organization Address City/State/ZIP Code Phon e Number [facility] [id number] [place] [address] (ABNORMAL) INR (12/25/2020 1:44 PM CDT) P athologist Signature INR 2.10 (H) 0.86 - 1.14 12/25/2020 [place] 1:48 PM CDT [facility] Comment: This test is intended for [...] Phon e Number [facility] [id number] [place] [address] documented in this encounter Visit Diagnoses Diagnosis Chronic deep vein thrombosis (DVT) of lo wer extremity, unspecified laterality, unspecified vein (H) [facility] current use of anticoagulants with INR goal of 2.0-3.0 documented in this encounter Care Teams Mental Retardation Aide Relationship Specialty Start Date End Date Froylan Louise MD PCP - General Family Practice 02/22/14 Froylan Louise MD Assigned PCP 03/13/14 2 Esthela Corea, RN Personal Advocate & Liaison Family Medicine 10/16 (PAL) documented as of this encounter
--- OUTSIDE RECORDS SUMMARY | 2022-05-15 22:50 | XMS_ITS | Encounter Summary ---
:1955 Author Organization [place] Address [address] [place] [address] Care Team Providers Name Role Phone Froylan Louise MD Primary Care Provider Unavailable Froylan Louise MD Unavailable Unavailable Esthela Corea RN Unavailable Unavailable Encounter Details Date Type Department Care Team Description 2020 Anticoagulation Therapy [facility] Audrey Louise Chronic deep vein thrombosis (DVT) of lower extremity, unspecified laterality, unspecified vein (H); Visit Clinic Chhaya Dubose MD [facility] current use of ant icoagulant therapy [address] [place] [address] Social History Tobacco Use Types [...] you attend uatsdin or Patient refused 2020 pentecostalism services? Do [...] hematology referral. Reported poor experience at the [facility] back in 2018. Epic Professional encouraged a f/u with PCP to discuss [...] Clinic for any changes, questions or concerns. (#[phone]) Shaniqua Humphrey RN OBJECTIVE: Recent labs: (last [...] location: Preferred lab: Send INR reminders to: [facility] Comments: Anticoagulation Care Providers Provider Role Specialty Phone number Froylan Louise MD Referring Family Medicine [phone] So Dodd MD - 2020 2:54 PM [...] herapy documented in this encounter Care Teams Head Teller Relationship Specialty Start Date End Date Froylan Louise MD PCP - General Family Practice 02/22/14 Froylan Louise MD Assigned PCP 03/13/14 2 Esthela Corea, RN Personal Advocate & Liaison Family Medicine 10/16 (PAL) documented as of this encounter
--- OUTSIDE RECORDS SUMMARY | 2022-05-15 22:50 | XMS_ITS | Encounter Summary ---
:1955 Author Organization [facility] Address [address] [place] [address] Care Team Providers Name Role Phone Froylan [...] you attend muslim or Patient refused 2020 yarsanism services? Do [...] on filedocumented in this encounter Care Teams Information Assurance Officer Relationship Specialty Start Date End Date Froylan Louise MD PCP - General Family Practice 02/22/14 Froylan Louise MD Assigned PCP 03/13/14 2 Esthela Corea, RN Personal Advocate & Liaison Family Medicine 10/16 (PAL) documented as of this encounter
--- OUTSIDE RECORDS SUMMARY | 2022-05-15 22:50 | XMS_ITS | Encounter Summary ---
:1955 Author Organization [place] Address [facility] [place] [address] Care Team Providers Name Role Phone Froylan Louise MD Primary Care Provider Unavailable Froylan Louise MD Unavailable Unavailable Esthela Corea RN Unavailable Unavailable Reason for Referral Consultation (Routine) - Closed Specialty Diagnoses / Procedures Referred By Contact Refer red To Contact Wound Care Diagnoses Open knee wound, left, initial encounter Quincy Carvalho PA-C [facility] [address] [place] [address] [place] [address] Fax: Referral ID Status Reason Start Date Expiration Date Visits Requ ested Visits Authorized [id number] Closed 12/25/2020 12/25/2021 1 1 Reason for Visit Reason Comments Wound Check Encounter Details Date Type Department Care Team Description 12/25/2020 Emergency [facility] Quincy Carvalho PA-C Open knee wound, left, [facility] Dep t [facility] initial encounter [address] [place], [place] [address] [place] [address] [place] [address] (Wo rk) Social History Tobacco Use Types [...] you attend scientologist or Patient refused 2020 advent services? Do [...] in this encounter Discharge Instructions Discharge InstructionsStQuincy eilzondo PA-C - 12/25/2020 6:52 PM CDT Change [...] proximal vein of both lower extremities (H), [facility] current use of anticoagulants with INR [...] laterality, unspecified advised by vein (H), extermination supervisor provider. Then current use of continue daily anticoagulant therapy injections until INR 2.3 or higher (or >2.0 twice, 24 hours apart). Xedqlsqyfpu-Dcmpevmbs-Rbup Inhale 1 puff into 1 Inhaler 11 [...] S81.002A Virgil Elizabeth MD [facility] COUNT INCLUDES THE [facility] Emergency Department Virgil Elizabeth MD 12/25/20 0491 Cheryl Busby RN - 12/25/2020 6:09 PM [...] dog in the rain. Seen today at [facility] and referred to ED for evaluation of [...] any allergies Medications: Albuterol Atorvastatin Cyclobenzaprine Enoxaparin Zmhlmcagbxs-sdvsuxzlo-kylqbjdaay Hydrochlorothiazide Loperamide Sildenafil Terazosin Triamcinolone Warfarin Zolpidem [...] care. He denies any history of diabetes. [place] patient was safe for discharged home with [...] appear normal. PREM DECKER MD SYSTEM ID: [id number] Procedure Note Prem Decker MD - 12/25/2020Form [...] appear normal. PREM DECKER MD SYSTEM ID: [id number] Quincy Carvalho PA-C IMG DIAGNOSTIC IMAGING ORDER SADIQ Blood Culture (12/25/2020 4:05 PM CDT) [facility] gist Method Time Signature Specimen Blood INFECTIOUS Description Right DISEASES Wrist DIAGNOSTIC LABORATORY, [facility] Culture Micro No growth 12/31/2020 INFECTIOUS 1:05 AM CDT DISEASES DIAGNOSTIC LABORATORY, [facility] Specimen Anatomical Collection Method Collection Time Receive d Time (Source) Location / / Volume Laterality Blood specimen 12/25/2020 4:05 PM 021 4:14 (specimen) CDT PM CDT Comment: Right~Wrist Quincy SUBRAMANIANC LAB - MICRO GENERAL ORDERABL ES Performing Organization Address City/State/ZIP Code Phon e Number INFECTIOUS DISEASES DIAGNOSTIC [address] [facility] [address] LABORATORY, [facility] (ABNORMAL) INR (12/25/2020 3:39 PM CDT) P athologist Signature INR 1.68 (H) 0.86 - 1.14 12/25/2020 [place] 6:14 PM CDT [facility] Specimen Anatomical Collection Method Collection Time Receive d Time (Source) Location / / Volume Laterality 12/25/2020 3:39 PM 3:58 CDT PM CDT Quincy VAZQUEZ-C LAB - BLOOD ORDERABLES Performing Organization Address City/State/ZIP Code Phon e Number [facility] [address] [place], [place] [address] [facility] [address] [place], [place] [address], [facility] [phone] Blood Culture (12/25/2020 3:39 PM CDT) [facility] Method Time Signature Specimen Blood INFECTIOUS Description Right Arm DISEASES DIAGNOSTIC LABORATORY, [facility] Culture Micro No growth 12/31/2020 INFECTIOUS 1:05 AM CDT DISEASES DIAGNOSTIC LABORATORY, [facility] Specimen Anatomical Collection Method Collection Time Receive d Time (Source) Location / / Volume Laterality Blood specimen 12/25/2020 3:39 PM 021 4:00 (specimen) CDT PM CDT Comment: Right Arm Quincy Carvalho PA-C LAB - MICRO GENERAL ORDERABL ES Performing Organization Address [facility]/ZIP Code Phon e Number INFECTIOUS DISEASES DIAGNOSTIC [address] [facility] [address] LABORATORY, [facility] Erythrocyte sedimentation rate auto (12/25/2020 3:39 PM CDT) P athologist Signature Sed Rate 19 0 - 20 mm/h 12/25/2020 [facility] 4:46 PM CDT [facility] Specimen Anatomical Collection Method Collection Time Receive d Time (Source) Location / / Volume Laterality Blood 12/25/2020 3:39 PM 3:58 CDT PM CDT Quincy SUBRAMANIANC LAB - BLOOD ORDERABLES Performing Organization Address [facility] Phon e Number [facility] [address], [place] [address] [facility] [address] [place], [place] [address], [facility] [phone] (ABNORMAL) CRP inflammation (12/25/2020 3:39 PM CDT) [facility] Method Time Signature CRP Inflammation 24.9 (H) 0.0 - 8.0 12/25/2020 [place] mg/L 4:17 PM CDT [facility] Specimen Anatomical Collection Method Collection Time Receive d Time (Source) Location / / Volume Laterality Blood 12/25/2020 3:39 PM 1 3:58 CDT PM CDT Quincy Carvalho PA-C LAB - BLOOD ORDERABLES Performing Organization Address City/[facility]/ZIP Code Phon e Number [facility] [address], [place] [address] [facility] [address] [place], [place] [address], [facility] [phone] Lactic acid whole blood (12/25/2020 3:39 PM CDT) athologist Signature Lactic Acid 1.6 0.7 - 2.0 12/25/2020 [place] mmol/L 4:03 PM [facility] Specimen Anatomical Collection Method Collection Time Receive d Time (Source) Location / / Volume Laterality Blood 12/25/2020 3:39 PM 3:59 CDT PM CDT Quincy Carvalho PA-C LAB - BLOOD ORDERABLES Performing Organization Address City/[facility] Phon e Number [facility] [address] [place], [place] [address] [facility] [address] [place], [place] [address], [facility] [phone] Basic metabolic panel (12/25/2020 3:39 PM CDT) athologist Signature Sodium 137 133 - 144 12/25/2020 [place] mmol/L 4:12 PM [facility] Potassium 3.5 3.4 - 5.3 12/25/2020 [facility] mmol/L 4:12 PM [facility] Chloride 105 94 - 109 12/25/2020 [facility] mmol/L 4:12 PM [facility] Carbon Dioxide 27 20 - 32 12/25/2020 [place] mmol/L 4:17 PM [facility] Anion Gap 5 3 - 14 12/25/2020 [place] mmol/L 4:17 PM [facility] Glucose 98 70 - 99 12/25/2020 [place] mg/dL 4:17 PM [facility] Urea Nitrogen 17 7 - 30 12/25/2020 [place] mg/dL 4:17 PM [facility] Creatinine 0.89 0.66 - 12/25/2020 [place] 1.25 mg/dL 4:17 PM [facility] GFR Estimate >90 >60 12/25/2020 [place] mL/min/{1. 4:17 PM [facility] 73_m2} HOSPITAL Comment: Non GFR Calc Starting 06/09/2018, serum creatinine ba sed estimated GFR (eGFR) will be calculated using the Chronic Kidney Dise [facility] Epidemiology Collaboration (CKD-EPI) equation. GFR Estimate If >90 >60 mL/min/{1.73_m2} 12/25/2020 4: 17 PM [facility] Comment: GFR Calc Starting 06/09/2018, serum creatinine ba sed estimated GFR (eGFR) will be calculated using the Chronic Kidney Dise [facility] Epidemiology Collaboration (CKD-EPI) equation. Calcium 9.0 8.5 - 10.1 mg/dL 12/25/2020 4:17 PM [facility] Specimen Anatomical Collection Method Collection Time Receive d Time (Source) Location / / Volume Laterality Blood 12/25/2020 3:39 PM 3:58 CDT PM CDT Quincy Carvalho PA-C LAB - BLOOD ORDERABLES Performing Organization Address City/State/ZIP Code Phon e Number [place] [address] [address] [place] [address] [phone] (ABNORMAL) CBC with platelets differential (12/25/2020 3:39 PM CDT) [facility] Method Time Signature WBC 8.4 4.0 - 12/25/2020 [facility] 11.0 4:16 PM [facility] 10e9/L [facility] RBC Count 4.36 (L) 4.4 - 5.9 12/25/2020 [place] 10e12/L 4:16 PM [facility] Hemoglobin 13.5 13.3 - 12/25/2020 [place] 17.7 g/dL 4:16 PM [facility] Hematocrit 41.2 40.0 - 12/25/2020 [facility] 53.0 % 4:16 PM [facility] MCV 95 78 - 100 12/25/2020 [facility] fl 4:16 PM [facility] MCH 31.0 26.5 - 12/25/2020 [facility] 33.0 pg 4:16 PM [facility] MCHC 32.8 31.5 - 12/25/2020 [facility] 36.5 g/dL 4:16 PM [facility] RDW 14.2 10.0 - 12/25/2020 [facility] 15.0 % 4:16 PM [facility] Platelet Count 216 150 - 450 12/25/2020 [facility] 10e9/L 4:16 PM [facility] Diff Method Automated 12/25/2020 [facility] Method 4:16 PM [facility] % Neutrophils 77.2 % 12/25/2020 [facility] 4:16 PM [facility] % Lymphocytes 15.2 % 12/25/2020 [facility] 4:16 PM [facility] % Monocytes 5.6 % 12/25/2020 [facility] 4:16 PM [facility] % Eosinophils 1.3 % 12/25/2020 [facility] 4:16 PM [facility] % Basophils 0.2 % 12/25/2020 [facility] 4:16 PM [facility] % Immature 0.5 % 12/25/2020 [facility] Granulocytes 4:16 PM [facility] Nucleated RBCs 0 0 /100 12/25/2020 [facility] 4:16 PM [facility] Absolute 6.5 1.6 - 8.3 12/25/2020 [facility] Neutrophil 10e9/L 4:16 PM [facility] Absolute 1.3 0.8 - 5.3 12/25/2020 [facility] Lymphocytes 10e9/L 4:16 PM [facility] Absolute 0.5 0.0 - 1.3 12/25/2020 [facility] Monocytes 10e9/L 4:16 [facility] Absolute 0.1 0.0 - 0.7 12/25/2020 [facility] Eosinophils 10e9/L 4:16 PM [facility] Absolute 0.0 0.0 - 0.2 12/25/2020 [facility] Basophils 10e9/L 4:16 PM [facility] Abs Immature 0.0 0 - 0.4 12/25/2020 [place] Granulocytes 10e9/L 4:16 PM [facility] Absolute 0.0 12/25/2020 [place] Nucleated RBC 4:16 PM [facility] Specimen Anatomical Collection Method Collection Time Receive d Time (Source) Location / / Volume Laterality Blood 12/25/2020 3:39 PM 3:58 CDT PM CDT Quincy Carvalho PA-C LAB - BLOOD ORDERABLES Performing Organization Address City/State/ZIP Code Phon e Number [place] [address], [place] [address] [facility] [address] [place], [place] [address] [place] [address] documented in this encounter Visit Diagnoses Diagnosis [...] 2103 documented in this encounter Care Teams Clin Application Specialist Relationship Specialty Start Date End Date Froylan Louise MD PCP - General Family Practice 02/22/14 Froylan Louise MD Assigned PCP 03/13/14 2 Esthela Corea, RN Personal Advocate & Liaison Family Medicine 10/16 (PAL) documented as of this encounter
--- OUTSIDE RECORDS SUMMARY | 2022-05-15 22:50 | XMS_ITS | Encounter Summary ---
:1955 Author Organization [place] Address [address] [place] [address]. [place] [address] Care Team Providers Name Role Phone Froylan Louise MD Primary Care Provider Unavailable Froylan Louise MD Unavailable Unavailable Esthela Corea RN Unavailable Unavailable Encounter Details Date Type Department Care Team Description 12/26/2020 Telephone [facility] Uriel Pitts MD Hospitalist Program [address] [facility] [address] [facility] [address] [place] [address] [place], [place] [address] (Wo rk) Social History Tobacco Use Types [...] you attend holiness or Patient refused 2020 mu-ism services? Do [...] wants sooner with . Telephone Encounter - Elvis Miles LPN - 12/26/2020 10:51 AM CDT Received referral from work que for knee wound please schedule with Dr. Nuñez. documented in this encounter Plan of Treatment Upcoming Encounters Date Type Specialty Care Team Description 05/20/2022 Lab Lab documented as of this encounter Visit Diagnoses Not on filedocumented in this encounter Care Teams Netezza Architect Relationship Specialty Start Date End Date Froylan Louise MD PCP - General Family Practice 02/22/14 Froylan Louise MD Assigned PCP 03/13/14 2 Esthela Corea RN Personal Advocate & Liaison Family Medicine 10/16 (PAL) documented as of this encounter
--- OUTSIDE RECORDS SUMMARY | 2022-05-15 22:50 | XMS_ITS | Encounter Summary ---
:1955 Author Organization [place] Address [address] [place] [address] Care Team Providers Name Role Phone Froylan Louise MD Primary Care Provider Unavailable Froylan Louise MD Unavailable Unavailable Esthela Corea RN Unavailable Unavailable Encounter Details Date Type Department Care Team Description 11/16/2020 Orders Only [facility] onic deep vein thrombosis (DVT) of lower extremity, unspecified laterality, unspecified vein (H); [facility] current use of ant icoagulants with INR goal of 2.0-3.0 [address] [place] [address] Social History Tobacco Use [...] you attend religion or Patient refused 2020 oriental orthodox services? [...] results unspecified section. 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 [address] (ABNORMAL) INR (11/16/2020 11:20 AM CDT) P athologist Signature INR 3.10 (H) 0.86 - 1.14 11/16/2020 [place] 12:02 PM CDT [facility] Comment: This test is intended [...] Code Phon e Number [facility] [address] 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
--- OUTSIDE RECORDS SUMMARY | 2022-05-15 22:50 | XMS_ITS | Encounter Summary ---
:1955 Author Organization [place] Address [address] [place] [address] Care Team Providers Name Role Phone Froylan Louise MD Primary Care Provider Unavailable Froylan Louise MD Unavailable Unavailable Esthela Corea RN Unavailable Unavailable Reason for Visit Reason Onset Date Comments Anticoagulation 12/14/2020 Encounter Details Date Type Department Care Team Description 12/14/2020 Telephone [facility] Froylan Louise Ra, MD [address] [address] Social History Tobacco Use [...] you attend cheondoism or Patient refused 2020 latter-day services? 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 Patient/ parent verbalized understanding and agrees with plan. Rosmery Thorne RN [facility] [place], [place] [facility] Telephone Encounter - Shelly Rob RN - 12/14/2020 3:25 PM CDT Patient left a VM at 3:14 PM requesting a call back to discuss Lovenox injections. Can call him at [phone]. Shelly Rob RN [facility] documented in this encounter Plan of Treatment Upcoming Encounters Date Type Specialty Care Team Description 05/20/2022 Lab Lab documented as of this encounter Visit Diagnoses Not on filedocumented in this encounter Care Teams Tree Killer Relationship Specialty Start Date End Date Froylan Louise MD PCP - General Family Practice 02/22/14 Froylan Louise MD Assigned PCP 03/13/14 2 Esthela Corea, CINDY Personal Advocate & Liaison Family Medicine 10/16 (PAL) documented as of this encounter
--- OUTSIDE RECORDS SUMMARY | 2022-05-15 22:50 | XMS_ITS | Encounter Summary ---
:1955 Author Organization [place] Address [address] [place] [address] Care Team Providers Name Role Phone Froylan Louise MD Primary Care Provider Unavailable Froylan Louise MD Unavailable Unavailable Esthela Corea RN Unavailable Unavailable Encounter Details Date Type Department Care Team Description 11/16/2020 Anticoagulation Therapy [facility] Audrey Louise Chronic deep vein thrombosis (DVT) of lower extremity, unspecified laterality, unspecified vein (H); Visit Clinic Chhaya Dubose MD [facility] current use of ant icoagulant therapy [address] [place] [address] Social History Tobacco Use Types [...] you attend islam or Patient refused 2020 yazdanism services? Do [...] location: Preferred lab: Send INR reminders to: [facility] Comments: Anticoagulation Care Providers Provider Role Specialty Phone number Froylan Louise MD Referring Family Medicine [phone] See the Encounter Report to view Anticoagulation [...] herapy documented in this encounter Care Teams Miter Cutter Relationship Specialty Start Date End Date Froylan Louise MD PCP - General Family Practice 02/22/14 Froylan Louise MD Assigned PCP 03/13/14 2 Esthela Corea RN Personal Advocate & Liaison Family Medicine 10/16 (PAL) documented as of this encounter
--- OUTSIDE RECORDS SUMMARY | 2022-05-15 22:50 | XMS_ITS | Encounter Summary ---
:1955 Author Organization [place] Address [address] [place] [address] Care Team Providers Name Role Phone Froylan Louise MD Primary Care Provider Unavailable Froylan Louise MD Unavailable Unavailable Esthela Corea RN Unavailable Unavailable Encounter Details Date Type Department Care Team Description [address] 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 Do [...] results unspecified section. 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 [address] (ABNORMAL) INR (2020 2:15 PM CDT) P athologist Signature INR 3.00 (H) 0.86 - 1.14 2020 [place] 2:17 PM CDT [facility] Comment: This test is intended for monitoring [...] Address City/State/ZIP Code Phon e Number [facility] [address] 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
--- OUTSIDE RECORDS SUMMARY | 2022-05-15 22:50 | XMS_ITS | Encounter Summary ---
:1955 Author Organization [place] Address [address] [place] [address] Care Team Providers Name Role Phone Froylan [...] containing 4 or more times a w absentee-[place]nee 05/25/2021 alcohol? How many drinks containing alcohol [...] you attend religious or Patient refused 2020 hoahaoism services? Do [...] on filedocumented in this encounter Care Teams Collet Driller Relationship Specialty Start Date End Date Froylan Louise MD PCP - General Family Practice 02/22/14 Froylan Louise MD Assigned PCP 03/13/14 2 Esthela Corea, RN Personal Advocate & Liaison Family Medicine 10/16 (PAL) documented as of this encounter
--- OUTSIDE RECORDS SUMMARY | 2022-05-15 22:50 | XMS_ITS | Encounter Summary ---
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 [...] unspecified laterality, sect ion. 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 [address] documented in this encounter Visit Diagnoses Diagnosis Chronic deep vein thrombosis (DVT) of lo wer extremity, unspecified laterality, unspecified vein (H) retirement current use of anticoagulants with INR goal of 2.0-3.0 documented in this encounter Care Teams Mothers Helper Relationship Specialty Start Date End Date Froylan Louise MD PCP - General Family Practice 02/22/14 Froylan Louise MD Assigned PCP 03/13/14 2 Esthela Corea RN Personal Advocate & Liaison Family Medicine 10/16 (PAL) documented as of this encounter
--- OUTSIDE RECORDS SUMMARY | 2022-05-15 22:50 | XMS_ITS | Encounter Summary ---
:1955 Author Organization [place] Address Formerly [facility] [place] [address] Care Team Providers Name Role Phone Froylan Louise MD Primary Care Provider Unavailable Froylan Louise MD Unavailable Unavailable Esthela Corea RN Unavailable Unavailable Reason for Visit Reason Onset Date Comments Anticoagulation 12/11/2020 warfarin hold/bridge plan Encounter Details Date Type Department Care Team Description 12/11/2020 [facility] Froylan Louise (warfarin Clinic [place] MD [place] hold/bridge plan) [address] [place] [address] Social History Tobacco Use Types [...] containing 4 or more times a w [place] 05/25/2021 alcohol? How many drinks containing alcohol [...] you attend bahai or Patient refused 2020 anglican services? Do [...] addended for new dates. Rosmery Thorne RN [facility] [place] [place] Tele[place] Encounter - Padmini Eller RN - 12/13/2020 9:28 AM CDT left at 0850 regarding this procedure. Patient states it was changed to 12/21/20. Please cas him back to discuss. Thanks! Padmini Eller RN, BSN [facility] Anticoagulation Team Telephone Encounter - Diana Nielsen RN - 12/12/2020 1:09 PM CDT Virgil called back his spinal injection is scheduled for 12/26/20. Reviewed warfarin hold/restart instructions as well as bridging instructions. Lovenox prescription e-prescribed to pharmacy of choice. Written instructions sent via [facility]. Scheduled next INR 3 days after procedure. [...] (252 lb) 05/26/20 108 kg (238 lb) [place] body weight: 77.6 kg (171 lb 1.2 [...] was on at the time. Routing to [facility] PharmD for assessment/recommendations. ACC RN will route date of procedure as soon as it is known. 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
--- OUTSIDE RECORDS SUMMARY | 2022-05-15 22:50 | XMS_ITS | Encounter Summary ---
:1955 Author Organization [place] Address [address] [place] [address] Care Team Providers Name Role Phone Froylan Louise MD Primary Care Provider Unavailable Froylan Louise MD Unavailable Unavailable Esthela Corea RN Unavailable Unavailable Encounter Details Date Type Department Care Team Description 11/03/2020 Anticoagulation Therapy [facility] Audrey Louise Chronic deep vein thrombosis (DVT) of lower extremity, unspecified laterality, unspecified vein (H); Visit Clinic Chhaya Dubose MD custodial current use of ant icoagulant therapy [address] [place] [address] Social History Tobacco Use Types [...] you attend religion or Patient refused 2020 holiness services? Do [...] Clinic for any changes, questions or concerns. (#[phone]) Mirna Villa RN OBJECTIVE: Recent labs: (last [...] location: Preferred lab: Send INR reminders to: [facility] Comments: Anticoagulation Care Providers Provider Role Specialty Phone number Froylan Louise MD Referring Family Medicine [phone] documented in this encounter Plan of Treatment Upcoming Encounters Date Type Specialty Care Team Description 05/20/2022 Lab Lab documented as of this encounter Visit Diagnoses Diagnosis Chronic deep vein thrombosis (DVT) of lo wer extremity, unspecified laterality, unspecified vein (H) custodial current use of anticoagulant t herapy documented in this encounter Care Teams Supervisor Estimator And Drafter Relationship Specialty Start Date End Date Froylan Louise MD PCP - General Family Practice 02/22/14 Froylan Louise MD Assigned PCP 03/13/14 2 Esthela Corea, RN Personal Advocate & Liaison Family Medicine 10/16 (PAL) documented as of this encounter
--- OUTSIDE RECORDS SUMMARY | 2022-05-15 22:50 | XMS_ITS | Encounter Summary ---
:1955 Author Organization [place] Address [address] [place] [address] Care Team Providers Name Role Phone Froylan Louise MD Primary Care Provider Unavailable Froylan Louise MD Unavailable Unavailable Esthela Corea RN Unavailable Unavailable Reason for Visit Reason Onset Date Comments Anticoagulation 12/26/2020 ED visit f/u Encounter Details Date Type Department Care Team Description 12/26/2020 Telephone [facility] Froylan Louise (ED visit Clinic Chhaya Dubose MD f/u) [address] [place] [address] Social History Tobacco Use [...] you attend scientologist or Patient refused 2020 cheondoism services? Do [...] detailed message for Virgil wick to call [phone]. Can transfer to Diana at [phone]. 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
--- OUTSIDE RECORDS SUMMARY | 2022-05-15 22:50 | XMS_ITS | Encounter Summary ---
:1955 Author Organization [place] Address [address] [place] [address] Care Team Providers Name Role Phone Froylan [...] you attend nondenominational or Patient refused 2020 worship services? Do [...] on filedocumented in this encounter Care Teams Fish And Wildlife Technician Relationship Specialty Start Date End Date Froylan Louise MD PCP - General Family Practice 02/22/14 Froylan Louise MD Assigned PCP 03/13/14 2 Esthela Corea, RN Personal Advocate & Liaison Family Medicine 10/16 (PAL) documented as of this encounter
--- OUTSIDE RECORDS SUMMARY | 2022-05-15 22:50 | XMS_ITS | Encounter Summary ---
:1955 Author Organization [place] Address [address] [place] [address] Care Team Providers Name Role Phone Froylan Louise MD Primary Care Provider Unavailable Froylan Louise MD Unavailable Unavailable Esthela Corea RN Unavailable Unavailable Reason for Visit Reason Onset Date Comments Erroneous encounter-disregard 12/25/2020 Encounter Details Date Type Department Care Team Description 12/25/2020 [facility] Froylan Louise Erro neous [facility] Chhaya VILLASEÑOR encounter-disregard [address] [place] [address] Social History Tobacco Use Types [...] you attend tenriism or Patient refused 2020 sikhism services? Do [...] on filedocumented in this encounter Care Teams Winding Inspector Relationship Specialty Start Date End Date Froylan Louise MD PCP - General Family Practice 02/22/14 Froylan Louise MD Assigned PCP 03/13/14 2 Esthela Corea RN Personal Advocate & Liaison Family Medicine 10/16 (PAL) documented as of this encounter
--- OUTSIDE RECORDS SUMMARY | 2022-05-15 22:50 | XMS_ITS | Encounter Summary ---
:1955 Author Organization [place] Address [address] [place] [address] Care Team Providers Name Role Phone Froylan Louise MD Primary Care Provider Unavailable Froylan Louise MD Unavailable Unavailable Esthela Corea RN Unavailable Unavailable Encounter Details Date Type Department Care Team Description 12/12/2020 Telephone [facility] Froylan Louise Ra, MD [place] [address] [place] [address] Social History Tobacco Use [...] you attend lutheran or Patient refused 2020 anglican services? Do [...] on filedocumented in this encounter Care Teams Ophthalmic Technician Apprentice Relationship Specialty Start Date End Date Froylan Louise MD PCP - General Family Practice 02/22/14 Froylan Louise MD Assigned PCP 03/13/14 2 Esthela Corea RN Personal Advocate & Liaison Family Medicine 10/16 (PAL) documented as of this encounter
--- OUTSIDE RECORDS SUMMARY | 2022-05-15 22:50 | XMS_ITS | Encounter Summary ---
:1955 Author Organization [place] Address [address] [place] [address] Care Team Providers Name Role Phone Froylan Louise MD Primary Care Provider Unavailable Froylan Louise MD Unavailable Unavailable Esthela Corea RN Unavailable Unavailable Encounter Details Date Type Department Care Team Description 11/10/2020 [place] [phone] Social History Tobacco Use Types Packs/Day [...] you attend christian or Patient refused 2020 hoahaoism services? Do [...] on filedocumented in this encounter Care Teams Accountant Systems Relationship Specialty Start Date End Date Froylan Louise MD PCP - General Family Practice 02/22/14 Froylan Louise MD Assigned PCP 03/13/14 2 Esthela Corea RN Personal Advocate & Liaison Family Medicine 10/16 (PAL) documented as of this encounter
--- OUTSIDE RECORDS SUMMARY | 2022-05-15 22:51 | XMS_ITS | Encounter Summary ---
:1955 Author Organization [place] Address [address] [place] [address] Care Team Providers Name Role Phone Froylan [...] you attend adventist or Patient refused 2020 taoism services? Do [...] on filedocumented in this encounter Care Teams Patient Assessment Coordinator Relationship Specialty Start Date End Date Froylan Louise MD PCP - General Family Practice 02/22/14 Froylan Louise MD Assigned PCP 03/13/14 2 documented as of this encounter
--- OUTSIDE RECORDS SUMMARY | 2022-05-15 22:51 | XMS_ITS | Encounter Summary ---
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 How many drinks containing alcohol [...] you attend cheondoism or Patient refused 2020 adventism services? Do [...] Preferred lab: Send INR reminders to: 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
--- OUTSIDE RECORDS SUMMARY | 2022-05-15 22:51 | XMS_ITS | Encounter Summary ---
:1955 Author Organization [place] Address [address] [place] [address] Care Team Providers Name Role Phone Froylan [...] you attend evangelical or Patient refused 2020 episcopal services? Do [...] on filedocumented in this encounter Care Teams Talking Books Library Clerk Relationship Specialty Start Date End Date Froylan Louise MD PCP - General Family Practice 02/22/14 Froylan Louise MD Assigned PCP 03/13/14 2 Esthela Corea, RN Personal Advocate & Liaison Family Medicine 10/16 (PAL) documented as of this encounter
--- OUTSIDE RECORDS SUMMARY | 2022-05-15 22:51 | XMS_ITS | Encounter Summary ---
:1955 Author Organization [place] Address [address] [place] [address] Care Team Providers Name Role Phone Froylan Louise MD Primary Care Provider Unavailable Froylan Louise MD Unavailable Unavailable Esthela Corea RN Unavailable Unavailable Encounter Details Date Type Department Care Team Description 10/19/2020 Orders Only [facility] onic deep vein thrombosis (DVT) of lower extremity, unspecified laterality, unspecified vein (H); [facility] alf current use of ant icoagulants with INR goal of 2.0-3.0 [address] [place] [address] Social History Tobacco Use [...] you attend druze or Patient refused 2020 sikh services? Do [...] results unspecified section. 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 [address] (ABNORMAL) INR (10/19/2020 2:55 PM CDT) P athologist Signature INR 2.20 (H) 0.86 - 1.14 10/19/2020 [place] 3:11 PM CDT [facility] Comment: This test is intended for monitoring [...] Address City/State/ZIP Code Phon e Number [facility] [id number] [place] [address] documented in this encounter Visit Diagnoses Diagnosis Chronic deep vein thrombosis (DVT) of lo wer extremity, unspecified laterality, unspecified vein (H) salvage determiner current use of anticoagulants with INR goal of 2.0-3.0 documented in this encounter Care Teams Arcade Attendant Relationship Specialty Start Date End Date Froylan Louise MD PCP - General Family Practice 02/22/14 Froylan Louise MD Assigned PCP 03/13/14 2 Esthela Corea, RN Personal Advocate & Liaison Family Medicine 10/16 (PAL) documented as of this encounter
--- OUTSIDE RECORDS SUMMARY | 2022-05-15 22:51 | XMS_ITS | Encounter Summary ---
:1955 Author Organization [place] Address [facility] [place] [address] Care Team Providers Name Role Phone Froylan [...] POUCHOSCOPY [address] [place] [address] Phone: Referral ID Status Reason Start Date Expiration Date Visits Requ ested Visits Authorized [id number] 1 1 Encounter Details Date Type Department Care Team Description 10/12/2020 Hospital Encounter [facility] Julian Suazo MD [facility] Endoscopy COLON RECTAL SURG [address] [facility] [place] [address] [address] [phone] [address] [place] [address] (Wo rk) [...] containing 4 or more times a w [place] 05/25/2021 alcohol? How many drinks containing alcohol [...] you attend jewish or Patient refused 2020 tenriism services? 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 Then current use of continue daily anticoagulant therapy injections until INR 2.3 or higher (or >2.0 twice, 24 hours apart). Zecgektjkqs-Hfkcdaxbq-Lvkm Inhale 1 puff into 1 Inhaler 11 [...] [facility] GI EXAM (10/12/2020 10:16 AM CDT) [facility] Method Time Signature [facility] RADIOLOGY [facility] Endoscopy Department RESULTS Patient Name: Virgil Christine ?Procedure Date: 10/12/2020 10:16 AM ? Accou nt Number: [id number] Date of : 1955 ?Admit Type: Out [...] Procedure Code(s): ? --- Professional --- ? 24948, Endoscopic evaluation of s mall intestinal pouch [...] other than malignant neoplasm CPT copyright 2019 [employer]. All rights reserved. The codes documented in this report are prelimin dillon and upon oil well directional surveyor review may be revised to meet current compliance requirements. Chase Suazo MD 10/12/2020 11:02:02 AM I was physically present for the entire viewing portion of t he exam. Chase Suazo MD Number of Addenda: 0 Note Initiated On: 10/12/2020 10:16 AM MRN: ?[id number] Procedure Date: ? 10/12/2020 10:16:47 AM Total [...] 1039 documented in this encounter Care Teams Caster Helper Relationship Specialty Start Date End Date Froylan Louise MD PCP - General Family Practice 02/22/14 Froylan Louise MD Assigned PCP 03/13/14 2 documented as of this encounter
--- OUTSIDE RECORDS SUMMARY | 2022-05-15 22:51 | XMS_ITS | Encounter Summary ---
:1955 Author Organization [place] Address [facility] [place] [address] Care Team Providers Name Role Phone Froylan Louise MD Primary Care Provider Unavailable Froylan Louise MD Unavailable Unavailable Encounter Details Date Type Department Care Team Description 10/08/[address] [facility] Chase Suazo for [facility] Laboratory CMD screening for other [address] COLON RECTAL viral diseases [place], [place] [facility] [address] [facility] [phone] [address] Social History Tobacco Use Types Packs/Day Years [...] you attend christian or Patient refused 2020 episcopalian services? Do [...] as laterality, unspecified advised by vein (H), [facility] provider. Then current use of continue daily anticoagulant therapy injections until INR 2.3 or higher (or >2.0 twice, 24 hours apart). Ikvqgotdbnu-Cdhpqduqg-Jkki Inhale 1 puff into 1 Inhaler 11 [...] (Coronavirus) by PCR (10/08/2020 11:59 AM CDT) [facility] Method Time Signature SARS-CoV-2 Nasopharyngeal 10/09/2020 INFECTIOUS Virus 11:36 AM DISEASES Specimen CDT DIAGNOSTIC Source LABORATORY, [facility] SARS-CoV-2 NEGATIVE 10/09/2020 INFECTIOUS PCR Result 11:36 AM DISEASES CDT DIAGNOSTIC LABORATORY, [facility] Comment: SARS-CoV2 (COVID-19) RNA not de tected, presumed negative. SARS-CoV-2 PCR Testing was performed using the Aptima SARS-CoV-2 Assay on the [employer] Instrument System. 10/09/2020 11:36 AM INFECTI OUS DISEASES Comment Additional information about this Emergency Use Authorization (EUA) assay can be found via CDT DIAGNOSTIC the Lab Guide. LABORATORY, [facility] Comment: This test should be ordered for [...] COVID-19. This test was validated by the [facility] Infectious Diseases Diagnostic Laboratory. This laboratory i [...] MICRO GENERAL ORDERABL ES Performing Organization Address City/[facility]/ZIP Code Phon e Number INFECTIOUS DISEASES DIAGNOSTIC [address] [facility] [place] [address] LABORATORY, [facility] Asymptomatic COVID-19 Virus (Coronavirus) by PCR (10/08/2020 11:59 AM CDT) Component Value Ref Test Analysis Performed At [facility] Range Method Time Signature COVID-19 Nasopharyngeal 10/08/2020 [place] Virus PCR to 11:59 AM [facility] Source COVID-19 Test received-See 10/08/2020 INFECTIOUS Virus PCR to reflex to IDDL 3:48 PM CDT DISEASES [facility] - test SARS CoV2 DIAGNOSTIC Result (COVID-19) Virus LABORATORY, RT-PCR [facility] Specimen (Source) Anatomical Collection Method Collection Time Re ceived Time Location / / Volume Laterality Specimen from 10/08/2020 11:59 10/08/2020 nasopharyngeal AM CDT 12:00 PM CDT structure (specimen) Chase Suazo MD LAB - MICRO GENERAL ORDERABL ES Performing Organization Address City/[facility] Code Phon e Number INFECTIOUS DISEASES [address] [place] [address] DIAGNOSTIC LABORATORY, [facility] [address] [phone] documented in this encounter Visit Diagnoses Diagnosis Encounter for screening for other viral diseases documented in this encounter Care Teams Senior Brand Manager Relationship Specialty Start Date End Date Froylan Louise MD PCP - General Family Practice 02/22/14 Froylan Louise MD Assigned PCP 03/13/14 2 documented as of this encounter
--- OUTSIDE RECORDS SUMMARY | 2022-05-15 22:51 | XMS_ITS | Encounter Summary ---
:1955 Author Organization [place] Address [address] [place] [address] Care Team Providers Name Role Phone Froylan Louise MD Primary Care Provider Unavailable Froylan Louise MD Unavailable Unavailable Reason for Visit Reason Comments Allied Health Visit bp check Encounter Details Date Type Department Care Team Description 10/06/2020 Allied Health/Nurse Health [facility] All ied Health Visit (bp Visit Clinic [place] check) [address] [place] [address] Social History Tobacco Use Types [...] you attend worship or Patient refused 2020 holiness services? Do [...] Signature WBC 5.5 4.0 - 11.0 10/06/2020 [place] 10e9/L 4:33 PM CDT [facility] RBC Count 4.50 4.4 - 5.9 10/06/2020 [place] 10e12/L 4:33 PM CDT [facility] Hemoglobin 13.9 13.3 - 10/06/2020 [place] 17.7 g/dL 4:33 PM CDT [facility] Hematocrit 42.1 40.0 - 10/06/2020 [place] 53.0 % 4:33 PM CDT [facility] MCV 94 78 - 100 10/06/2020 [place] fl 4:33 PM CDT [facility] MCH 30.9 26.5 - 10/06/2020 [place] 33.0 pg 4:33 PM CDT [facility] MCHC 33.0 31.5 - 10/06/2020 [place] 36.5 g/dL 4:33 PM CDT [facility] RDW 13.6 10.0 - 10/06/2020 [place] 15.0 % 4:33 PM CDT [facility] Platelet Count 181 150 - 450 10/06/2020 [place] 10e9/L 4:33 PM CDT [facility] Specimen Anatomical Collection Method Collection Time Receive d Time (Source) Location / / Volume Laterality Blood 10/06/2020 4:24 PM 4:25 CDT PM CDT Froylan Louise MD LAB - BLOOD ORDERABLES Performing Organization Address City/State/ZIP Code Phon e Number [facility] [address] [place] [address] (ABNORMAL) Basic metabolic panel (Ca, Cl, CO2, Creat, Gluc, K, Na, BUN) (10/06/2020 4:24 PM CDT) athologist Signature Sodium 139 133 - 144 10/07/2020 [facility] mmol/L 12:04 PM [facility] Potassium 3.4 3.4 - 5.3 10/07/2020 [place] mmol/L 12:04 PM [facility] Chloride 106 94 - 109 10/07/2020 [place] mmol/L 12:04 PM [facility] Carbon Dioxide 29 20 - 32 10/07/2020 [place] mmol/L 12:10 PM [facility] Anion Gap 4 3 - 14 10/07/2020 [place] mmol/L 12:10 PM [facility] Glucose 101 (H) 70 - 99 10/07/2020 [place] mg/dL 12:10 PM [facility] Urea Nitrogen 21 7 - 30 10/07/2020 [place] mg/dL 12:10 PM [facility] Creatinine 0.97 0.66 - 10/07/2020 [place] 1.25 mg/dL 12:10 PM [facility] GFR Estimate 83 >60 10/07/2020 [place] mL/min/{1. 12:10 PM [facility]_m2[facility] Comment: Non GFR Calc Starting 06/09/2018, serum creatinine ba sed estimated GFR (eGFR) will be calculated using the Chronic Kidney Dise [facility] Epidemiology Collaboration (CKD-EPI) equation. GFR Estimate If >90 >60 mL/min/{1.73_m2} 10/07/2020 12 :10 PM [facility] Comment: GFR Calc Starting 06/09/2018, serum creatinine ba sed estimated GFR (eGFR) will be calculated using the Chronic Kidney Dise [facility] Epidemiology Collaboration (CKD-EPI) equation. Calcium 8.9 8.5 - 10.1 mg/dL 10/07/2020 12:10 PM [facility] Specimen Anatomical Collection Method Collection Time Receive d Time (Source) Location / / Volume Laterality Blood 10/06/2020 4:24 PM 4:25 CDT PM CDT Froylan Louise MD LAB - BLOOD ORDERABLES Performing Organization Address City/State/ZIP Code Phon e Number [place] [address] [place], [place] [address] [facility] [address] [place], [place] [address] [facility] [phone] EKG 12-lead complete w/read - Clinics (10/06/2020) Narrative This result has an attachment that is no t available. Froylan Louise MD ECG ORDERABLES documented in this encounter Visit Diagnoses Diagnosis Irregular heartbeat - Primary Cardiac dysrhythmia, unspecified PVC's (premature ventricular contraction s) Other premature beats documented in this encounter Care Teams Beta Tester Relationship Specialty Start Date End Date Froylan Louise MD PCP - General Family Practice 02/22/14 Froylan Louise MD Assigned PCP 03/13/14 2 documented as of this encounter
--- OUTSIDE RECORDS SUMMARY | 2022-05-15 22:51 | XMS_ITS | Encounter Summary ---
:1955 Author Organization [place] Address [address] [place] [address] Care Team Providers Name Role Phone Froylan Louise MD Primary Care Provider Unavailable Froylan Louise MD Unavailable Unavailable Esthela Corea RN Unavailable Unavailable Encounter Details Date Type Department Care Team Description 10/19/2020 Anticoagulation Therapy [facility] Audrey Louise Chronic deep vein thrombosis (DVT) of lower extremity, unspecified laterality, unspecified vein (H); Visit Clinic Chhaya Dubose MD oysterman current use of ant icoagulant therapy [address] [place] [address] Social History Tobacco Use Types [...] you attend mormonism or Patient refused 2020 denominational services? Do [...] Lovenox. No answer. Left vm to call [phone]. Can transfer to [facility] at [phone]. Left message to continue current dose of [...] location: Preferred lab: Send INR reminders to: [facility] Comments: Anticoagulation Care Providers Provider Role Specialty Phone number Froylan Louise MD Referring Family Medicine [phone] See the Encounter Report to view Anticoagulation [...] herapy documented in this encounter Care Teams Supervising Editor News Reel Relationship Specialty Start Date End Date Froylan Louise MD PCP - General Family Practice 02/22/14 Froylan Louise MD Assigned PCP 03/13/14 2 Bishnu Coreaa M, RN Personal Advocate & Liaison Family Medicine 10/16 (PAL) documented as of this encounter
--- OUTSIDE RECORDS SUMMARY | 2022-05-15 22:51 | XMS_ITS | Encounter Summary ---
:1955 Author Organization [facility] Address [address] [place] [address] Care Team Providers Name Role Phone Froylan Louise MD Primary Care Provider Unavailable Froylan Louise MD Unavailable Unavailable Esthela Corea RN Unavailable Unavailable Encounter Details Date Type Department Care Team Description 11/03/2020 Orders Only [facility] onic deep vein thrombosis (DVT) of lower extremity, unspecified laterality, unspecified vein (H); [facility] residential current use of ant icoagulants with INR goal of 2.0-3.0 [address] [place] [address] Social History Tobacco Use [...] results unspecified section. 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 [address] (ABNORMAL) INR (11/03/2020 1:55 PM CDT) P athologist Signature INR 3.60 (H) 0.86 - 1.14 11/03/2020 [place] 2:11 PM CDT [facility] Comment: This test is intended for [...] Organization Address City/State/ZIP Code Phon e Number [facility] [id number] [place] [address] documented in this encounter Visit Diagnoses Diagnosis Chronic deep vein thrombosis (DVT) of lo wer extremity, unspecified laterality, unspecified vein (H) residential current use of anticoagulants with INR goal of 2.0-3.0 documented in this encounter Care Teams Racquet Maker Relationship Specialty Start Date End Date Froylan Louise MD PCP - General Family Practice 02/22/14 Froylan Louise MD Assigned PCP 03/13/14 2 Esthela Corea, RN Personal Advocate & Liaison Family Medicine 10/16 (PAL) documented as of this encounter
--- OUTSIDE RECORDS SUMMARY | 2022-05-15 22:51 | XMS_ITS | Encounter Summary ---
:1955 Author Organization [place] Address [address] [place] [address] Care Team Providers Name Role Phone Froylan Louise MD Primary Care Provider Unavailable Froylan Louise MD Unavailable Unavailable Esthela Corea RN Unavailable Unavailable Encounter Details Date Type Department Care Team Description 10/16/2020 Orders Only [facility] onic deep vein thrombosis (DVT) of lower extremity, unspecified laterality, unspecified vein (H); [facility] current use of ant icoagulants with INR goal of 2.0-3.0 [address] [place] [address] Social History Tobacco Use [...] you attend nondenominational or Patient refused 2020 mu-ism services? Do [...] unspecified laterality, sect ion. unspecified vein (H) [facility] current use of anticoagulants with INR goal of 2.0-3.0 documented in this encounter Results (ABNORMAL) INR (10/16/2020 10:37 AM CDT) athologist Signature INR 1.70 (H) 0.86 - 1.14 10/16/2020 [place] 11:04 AM CDT [facility] Comment: This test is intended for monitoring Cou madin therapy. ??Results are not accurate in patients with prolonged INR due to factor deficiency. Specimen Anatomical Collection Method Collection Time Receive d Time (Source) Location / / Volume Laterality Blood specimen 10/16/2020 10:37 (specimen) AM CDT 10:42 AM CDT Froylan Louise MD LAB - BLOOD ORDERABLES Performing Organization Address City/State/ZIP Code Phon e Number [facility] [id number] 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
--- OUTSIDE RECORDS SUMMARY | 2022-05-15 22:51 | XMS_ITS | Encounter Summary ---
:1955 Author Organization [place] Address [address] [place] [address] Care Team Providers Name Role Phone Froylan Louise MD Primary Care Provider Unavailable Froylan Louise MD Unavailable Unavailable Reason for Visit Reason Onset Date Comments Anticoagulation 10/13/2020 Encounter Details Date Type Department Care Team Description 10/13/2020 Telephone [facility] Froylan Louise Ra, MD [address] [address] Social History Tobacco Use [...] containing 4 or more times a w [place] 05/25/2021 alcohol? How many drinks containing alcohol [...] you attend nondenominational or Patient refused 2020 druze services? Do [...] on filedocumented in this encounter Care Teams Support Technician Relationship Specialty Start Date End Date Froylan Louise MD PCP - General Family Practice 02/22/14 Froylan Louise MD Assigned PCP 03/13/14 2 documented as of this encounter
--- OUTSIDE RECORDS SUMMARY | 2022-05-15 22:51 | XMS_ITS | Encounter Summary ---
:1955 Author Organization [place] Address [facility] [place] [address] Care Team Providers Name Role Phone Froylan Louise MD Primary Care Provider Unavailable Froylan Louise MD Unavailable Unavailable Encounter Details Date Type Department Care Team Description 10/06/2020 Anticoagulation Therapy [facility] Audrey Louise Chronic deep vein thrombosis (DVT) of lower extremity, unspecified laterality, unspecified vein (H); Visit Clinic Chhaya Dubose MD intermediate current use of ant icoagulant therapy [address] [place] [address] Social History Tobacco Use Types [...] you attend rastafari or Patient refused 2020 episcopal services? Do [...] Preferred lab: Send INR reminders to: [facility] Comments: Anticoagulation Care Providers Provider Role Specialty Phone number Froylan Louise MD Referring Family Medicine [phone] See the Encounter Report to view Anticoagulation [...] extremity, unspecified laterality, unspecified vein (H) intermediate current use of anticoagulant t herapy documented in this encounter Care Teams Network Services Project Manager Relationship Specialty Start Date End Date Froylan Louise MD PCP - General Family Practice 02/22/14 Froylan Louise MD Assigned PCP 03/13/14 2 documented as of this encounter
--- OUTSIDE RECORDS SUMMARY | 2022-05-15 22:51 | XMS_ITS | Encounter Summary ---
:1955 Author Organization [facility] Address [address] [place] [address] Care Team Providers Name Role Phone Froylan [...] you attend yazdanism or Patient refused 2020 tenriism services? Do [...] on filedocumented in this encounter Care Teams Inspector Assemblies And Installations Relationship Specialty Start Date End Date Froyaln Louise MD PCP - General Family Practice 02/22/14 Froylan oLuise MD Assigned PCP 03/13/14 2 Esthela Corea, RN Personal Advocate & Liaison Family Medicine 10/16 (PAL) documented as of this encounter
--- OUTSIDE RECORDS SUMMARY | 2022-05-15 22:51 | XMS_ITS | Encounter Summary ---
:1955 Author Organization [place] Address [address] [place] [address] Care Team Providers Name Role Phone Froylan Louise MD Primary Care Provider Unavailable Froylan Louise MD Unavailable Unavailable Esthela Corea RN Unavailable Unavailable Reason for Visit Reason Comments Allied Health Visit Encounter Details Date Type Department Care Team Description 11/03/2020 Allied Health/Nurse Health [facility] Allied Health Visit Visit [address] [address] Social History Tobacco Use [...] you attend islam or Patient refused 2020 religion services? Do [...] hypertension documented in this encounter Care Teams Director Strategy Relationship Specialty Start Date End Date Froylan Louise MD PCP - General Family Practice 02/22/14 Froylan Louise MD Assigned PCP 03/13/14 2 Esthela Corea RN Personal Advocate & Liaison Family Medicine 10/16 (PAL) documented as of this encounter
--- OUTSIDE RECORDS SUMMARY | 2022-05-15 22:51 | XMS_ITS | Encounter Summary ---
:1955 Author Organization [place] Address [address] [place] [address] Care Team Providers Name Role Phone Froylan [...] more times a w [place] 05/25/2021 alcohol? How many drinks containing alcohol [...] you attend orthodoxy or Patient refused 2020 pentecostal services? Do [...] on filedocumented in this encounter Care Teams Concrete Mixer Operator Helper Relationship Specialty Start Date End Date Froylan Louise MD PCP - General Family Practice 02/22/14 Froylan Louise MD Assigned PCP 03/13/14 2 Esthela Corea, RN Personal Advocate & Liaison Family Medicine 10/16 (PAL) documented as of this encounter
--- OUTSIDE RECORDS SUMMARY | 2022-05-15 22:51 | XMS_ITS | Encounter Summary ---
:1955 Author Organization [place] Address [address] [place] [place] [address] Care Team Providers Name Role Phone Froylan [...] on filedocumented in this encounter Care Teams Speaking Unit Assembler Relationship Specialty Start Date End Date Froylan Louise MD PCP - General Family Practice 02/22/14 Froylan Louise MD Assigned PCP 03/13/14 2 Esthela Corea, RN Personal Advocate & Liaison Family Medicine 10/16 (PAL) documented as of this encounter
--- OUTSIDE RECORDS SUMMARY | 2022-05-15 22:51 | XMS_ITS | Encounter Summary ---
:1955 Author Organization [place] Address [address] [place] [address] Care Team Providers Name Role Phone Froylan Louise MD Primary Care Provider Unavailable Froylan Louise MD Unavailable Unavailable Encounter Details Date Type Department Care Team Description 10/04/2020 Telephone [facility] Froylan Louise Ra, MD [place] [address] [place] [address] Social History Tobacco Use [...] at time of next INR, 10/06/20. Diana Mukhejree RN Anticoagulation Team Telephone Encounter - Froylan [...] on filedocumented in this encounter Care Teams Acetylene Torch Operator Relationship Specialty Start Date End Date Froylan Louise MD PCP - General Family Practice 02/22/14 Froylan Louise MD Assigned PCP 03/13/14 2 documented as of this encounter
--- OUTSIDE RECORDS SUMMARY | 2022-05-15 22:51 | XMS_ITS | Encounter Summary ---
:1955 Author Organization [place] Address [address] [place] [address] Care Team Providers Name Role Phone Froylan [...] you attend sabianist or Patient refused 2020 jain services? Do [...] filedocumented in this encounter Care Teams Inspector And Hand Packager Relationship Specialty Start Date End Date Froylan Louise MD PCP - General Family Practice 02/22/14 Froylan Louise MD Assigned PCP 03/13/14 2 documented as of this encounter
--- OUTSIDE RECORDS SUMMARY | 2022-05-15 22:51 | XMS_ITS | Encounter Summary ---
:1955 Author Organization [place] Address [address] [place] [address] Care Team Providers Name Role Phone Froylan Louise MD Primary Care Provider Unavailable Froylan Louise MD Unavailable Unavailable Esthela Corea RN Unavailable Unavailable Reason for Visit Reason Comments Medication Refill Encounter Details Date Type Department Care Team Description 10/25/2020 Refill [facility] Froylan Louise Ra, MD Medication Refill [address] [address] Social History Tobacco Use [...] you attend episcopal or Patient refused 2020 taoist services? Do [...] Telephone Encounter - Stevo Thorne RN - 10/26/2020 9:41 AM CDT Warfarin Prescription approved per [facility] Refill Protocol. Rosmery Thorne RN [facility] Telephone Encounter - Wendi Lindsay RN - 10/26/2020 8:41 AM CDT Routing refill request to provider for review/approval because: Drug not on the [facility] refill protocol Routing to [facility] as well [...] system documented in this encounter Care Teams Car Examiner Relationship Specialty Start Date End Date Froylan Louise MD PCP - General Family Practice 02/22/14 Froylan Louise MD Assigned PCP 03/13/14 2 Esthela Corea RN Personal Advocate & Liaison Family Medicine 10/16 (PAL) documented as of this encounter
--- OUTSIDE RECORDS SUMMARY | 2022-05-15 22:51 | XMS_ITS | Encounter Summary ---
:1955 Author Organization [place] Address [address] [place] [address] Care Team Providers Name Role Phone Froylan Louise MD Primary Care Provider Unavailable Froylan Louise MD Unavailable Unavailable Reason for Visit Reason Onset Date Comments Anticoagulation 10/13/2020 Encounter Details Date Type Department Care Team Description 10/13/2020 Telephone [facility] Froylan Louise Ra, MD [address] [address] Social History Tobacco Use [...] take tomorrow as scheduled. Rosmery Thorne RN [facility] Prior Maurizio Tovar [place] [...] on filedocumented in this encounter Care Teams Catalog Library Assistant Relationship Specialty Start Date End Date Froylan Louise MD PCP - General Family Practice 02/22/14 Froylan Louise MD Assigned PCP 03/13/14 2 documented as of this encounter
--- OUTSIDE RECORDS SUMMARY | 2022-05-15 22:51 | XMS_ITS | Encounter Summary ---
:1955 Author Organization [place] Address [facility] [place] [address] Care Team Providers Name Role Phone Froylan Louise MD Primary Care Provider Unavailable Froylan Louise MD Unavailable Unavailable Encounter Details Date Type Department Care Team Description 10/06/2020 Orders Only [facility] onic deep vein thrombosis (DVT) of lower extremity, unspecified laterality, unspecified vein (H); [facility] leak patcher current use of ant icoagulants with INR goal of 2.0-3.0 [address] [place] [address] Social History Tobacco Use [...] attend latter day or Patient refused 2020 jew services? Do [...] unspecified vein (H) [facility] current use of anticoagulants with INR goal of 2.0-3.0 documented in this encounter Results Capillary Blood Collection (10/06/2020 3:24 PM CDT) Patholo gist Method Time Signature Capillary Capillary 10/06/2020 [place] Blood collection 3:28 PM CDT CLINICS Collection performed [place] Specimen Anatomical Collection Method Collection Time Receive d Time (Source) Location / / Volume Laterality 10/06/2020 3:24 PM 3:25 CDT PM CDT Froylan Louise MD LAB - LAB COMMUNICATION Performing Organization Address City/State/ZIP Code Phon e Number [facility] [address] [place] [address] (ABNORMAL) INR (10/06/2020 3:24 PM CDT) P athologist Signature INR 2.50 (H) 0.86 - 1.14 10/06/2020 [place] 3:[address] [facility] Comment: This test is intended for [...] Organization Address City/State/ZIP Code Phon e Number [facility] [address] [place] [address] documented in this encounter Visit Diagnoses Diagnosis Chronic deep vein thrombosis (DVT) of lo wer extremity, unspecified laterality, unspecified vein (H) leak patcher current use of anticoagulants with INR goal of 2.0-3.0 documented in this encounter Care Teams Hospital Admitting Clerk Relationship Specialty Start Date End Date Froylan Louise MD PCP - General Family Practice 02/22/14 Froylan Louise MD Assigned PCP 03/13/14 2 documented as of this encounter
--- OUTSIDE RECORDS SUMMARY | 2022-05-15 22:51 | XMS_ITS | Encounter Summary ---
:1955 Author Organization [place] Address [address] [place] [address] Care Team Providers Name Role Phone Froylan Louise MD Primary Care Provider Unavailable Froylan Louise MD Unavailable Unavailable Esthela Corea RN Unavailable Unavailable Encounter Details Date Type Department Care Team Description 10/20/2020 Orders Only [facility] onic deep vein thrombosis (DVT) of lower extremity, unspecified laterality, unspecified vein (H); [facility] senior care current use of ant icoagulants with INR goal of 2.0-3.0 [address] [place] [address] Social History Tobacco Use [...] you attend latter-day or Patient refused 2020 jain services? Do [...] results unspecified section. 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 [address] (ABNORMAL) INR (10/20/2020 3:30 PM CDT) P athologist Signature INR 2.10 (H) 0.86 - 1.14 10/20/2020 [place] 3:37 PM CDT [facility] Comment: This test is intended for [...] Code Phon e Number [facility] [address] 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
--- OUTSIDE RECORDS SUMMARY | 2022-05-15 22:51 | XMS_ITS | Encounter Summary ---
:1955 Author Organization [place] Address [address] [place] [address] Care Team Providers Name Role Phone Froylan Louise MD Primary Care Provider Unavailable Froylan Louise MD Unavailable Unavailable Esthela Corea RN Unavailable Unavailable Reason for Visit Reason Onset Date Comments Hypertension 11/03/2020 nurse Encounter Details Date Type Department Care Team Description 11/03/2020 Telephone [facility] Froylan Louise Ra, Hypertension (nurse) Chhaya VILLASEÑOR [address] [place] [address] Social History Tobacco Use [...] containing 4 or more times a w citizen [place] 05/25/2021 alcohol? How many drinks containing [...] you attend anabaptism or Patient refused 2020 jain services? Do [...] on filedocumented in this encounter Care Teams Traveling Sales Executive Relationship Specialty Start Date End Date Froylan Louise MD PCP - General Family Practice 02/22/14 Froylan Louise MD Assigned PCP 03/13/14 2 Esthela Corea RN Personal Advocate & Liaison Family Medicine 10/16 (PAL) documented as of this encounter
--- OUTSIDE RECORDS SUMMARY | 2022-05-15 22:51 | XMS_ITS | Encounter Summary ---
:1955 Author Organization [place] Address [facility] [place] [address] Care Team Providers Name Role Phone Froylan [...] POUCHOSCOPY [address] [place] [address] Phone: Referral ID Status Reason Start Date Expiration Date Visits Requ ested Visits Authorized [id number] 1 1 Encounter Details Date Type Department Care Team Description 10/12/2020 Surgery [facility] Chase Rutherford MD POUCHOSCOPY Endoscopy [facility] [address] [place] [phone] [place] [id number] (Wo rk) Surgery Details Date/Time Status Location OR Service Patient Class Case Case Trauma Class Type Case? 10/12/20 10:30 Posted GI GI 03 [place] Out[facility] AM Panel 1 Procedure LRB Anes Op Region Wound Class Commen ts POUCHOSCOPY N/A Conscious Sedation Anus II-Clean Contami nated Surgeon Surgeon Role Service Panel Chase Suazo MD Primary [place] 1 documented in this encounter Social History [...] containing 4 or more times a w [place] 05/25/2021 alcohol? How many drinks containing [...] you attend confucianist or Patient refused 2020 cheondoism services? Do [...] proximal vein of both lower extremities (H), care home current use of anticoagulants with INR [...] as laterality, unspecified advised by vein (H), buttermilk drier operator provider. Then current use of continue daily anticoagulant therapy injections until INR 2.3 or higher (or >2.0 twice, 24 hours apart). Jisavvauzhi-Zbtxnimda-Jlle Inhale 1 puff into 1 Inhaler 11 [...] PROVATION GI EXAM (10/12/2020 10:16 AM CDT) [facility] Method Time Signature [facility] RADIOLOGY [facility] Endoscopy Department RESULTS Patient Name: Virgil Christine ?Procedure Date: 10/12/2020 10:16 AM ? Accou nt Number: [id number] Date of : 1955 ?Admit Type: Out [...] Procedure Code(s): ? --- Professional --- ? 52435, Endoscopic evaluation of s mall intestinal pouch [...] other than malignant neoplasm CPT copyright 2019 [employer]. All rights reserved. The codes documented in this report are prelimin dillon and upon him coder review may be revised to meet current compliance requirements. Chase Suazo MD 10/12/2020 11:02:02 AM I was physically present for the entire viewing portion of t he exam. Chase Suazo MD Number of Addenda: 0 Note Initiated On: 10/12/2020 10:16 AM MRN: ?[id number] Procedure Date: ? 10/12/2020 10:16:47 AM Total [...] Administer over 2 Minutes, PRN, Starting on Helrinda 10/12/20 at 1039 Given 10/12/2020 10:42 AM [...] 1039 documented in this encounter Care Teams Gender Studies Professor Relationship Specialty Start Date End Date Froylan Louise MD PCP - General Family Practice 02/22/14 Froylan Louise MD Assigned PCP 03/13/14 2 documented as of this encounter
--- OUTSIDE RECORDS SUMMARY | 2022-05-15 22:51 | XMS_ITS | Encounter Summary ---
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 Do [...] AM) Office Visit with Froylan Louise MD [facility] ([facility] ) [address] [place] [address] Appointment Notes for this encounter: reviewed [...] nurse blood pressure check. Froylan [facility] MD [facility] Herman is a 64 year old [...] Palpitations documented in this encounter Care Teams Software Support Representative Relationship Specialty Start Date End Date Froylan Louise MD PCP - General Family Practice 02/22/14 Froylan Louise MD Assigned PCP 03/13/14 2 Esthela Corea, RN Personal Advocate & Liaison Family Medicine 10/16 (PAL) documented as of this encounter
--- OUTSIDE RECORDS SUMMARY | 2022-05-15 22:51 | XMS_ITS | Encounter Summary ---
:1955 Author Organization [place] Address [address] [place] [address] Care Team Providers Name Role Phone Froylan Louise MD Primary Care Provider Unavailable Froylan Louise MD Unavailable Unavailable Esthela Corea RN Unavailable Unavailable Encounter Details Date Type Department Care Team Description 10/20/2020 Anticoagulation Therapy [facility] Audrey Louise Chronic deep vein thrombosis (DVT) of lower extremity, unspecified laterality, unspecified vein (H); Visit Clinic Chhaya Dubose MD medical terminologist current use of ant icoagulant therapy [address] [place] [address] Social History Tobacco Use Types [...] location: Preferred lab: Send INR reminders to: [facility] Comments: Anticoagulation Care Providers Provider Role Specialty Phone number Froylan Louise MD Referring Family Medicine [phone] See the Encounter Report to view Anticoagulation [...] documented in this encounter Care Teams Continuous Dryout Operator Helper Relationship Specialty Start Date End Date Froylan Louise MD PCP - General Family Practice 02/22/14 Froylan Louise MD Assigned PCP 03/13/14 2 Esthela Corea, RN Personal Advocate & Liaison Family Medicine 10/16 (PAL) documented as of this encounter
--- OUTSIDE RECORDS SUMMARY | 2022-05-15 22:52 | XMS_ITS | Encounter Summary ---
:1955 Author Organization [place] Address [address] [place] [address] Care Team Providers Name Role Phone Froylan Louise MD Primary Care Provider Unavailable Froylan Louise MD Unavailable Unavailable Reason for Visit Reason Onset Date Comments Results 08/14/2020 labs from 08/04 Encounter Details Date Type Department Care Team Description 08/14/2020 Telephone [facility] Froylan Louise Resu lts (labs from Clinic Chhaya VILLASEÑOR 08/04) [address] [place] [address] Social History Tobacco Use Types [...] containing 4 or more times a w teller 05/25/2021 alcohol? How many drinks containing alcohol [...] you attend alevism or Patient refused 2020 yarsani services? Do [...] with No / Unsure 08/01/2020 3:27 PM PER DIEM someone who was confirmed or suspected to have Coronavirus / COVID-19? documented as of this encounter Miscellaneous Notes Telephone Encounter - Froylan Louise MD - 08/14/2020 2:07 PM CST Labs ok. 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 Labs are available to view in Risk I/O Pt would like his PCP to review the labs and message sent to him in Routing to PCP Thank you Briana Rivas RN on 08/14/2020 at 12:57 PM DIEM documented in this encounter Plan of Treatment Upcoming Encounters Date Type Specialty Care Team Description 05/20/2022 Lab Lab documented as of this encounter Visit Diagnoses Not on filedocumented in this encounter Care Teams Government Services Professional Relationship Specialty Start Date End Date Froylan Louise MD PCP - General Family Practice 02/22/14 Froylan Louise MD Assigned PCP 03/13/14 2 documented as of this encounter
--- OUTSIDE RECORDS SUMMARY | 2022-05-15 22:52 | XMS_ITS | Encounter Summary ---
:1955 Author Organization [place] Address [address] [place] [address] Care Team Providers Name Role Phone Froylan Louise MD Primary Care Provider Unavailable Froylan Louise MD Unavailable Unavailable Reason for Visit Reason Onset Date Comments Medication Request 08/07/2020 Encounter Details Date Type Department Care Team Description 08/07/2020 Telephone [facility] Froylan Louise Ra, Medication Request Chhaya [address]ASE[address] [address] [place] [address] Social History Tobacco Use [...] attend oriental orthodox or Patient refused 2020 presybeterian services? Do [...] with No / Unsure 08/01/2020 3:27 PM PRODUCTION ARTIST someone who was confirmed or suspected to [...] sent to pharmacy. Halina Bustillos RN, BSN UCTION ARTIST documented in this encounter Plan of Treatment Upcoming Encounters Date Type Specialty Care Team Description 05/20/2022 Lab Lab documented as of this encounter Visit Diagnoses Diagnosis Essential hypertension Unspecified essential hypertension documented in this encounter Care Teams Laundry Operator Wash Room Relationship Specialty Start Date End Date Froylan Louise MD PCP - General Family Practice 02/22/14 Froylan Louise MD Assigned PCP 03/13/14 2 documented as of this encounter
--- OUTSIDE RECORDS SUMMARY | 2022-05-15 22:52 | XMS_ITS | Encounter Summary ---
:1955 Author Organization [place] Address [address] [place] [address] Care Team Providers Name Role Phone Froylan Louise MD Primary Care Provider Unavailable Froylan Louise MD Unavailable Unavailable Reason for Visit Reason Comments Allied Health Visit Encounter Details Date Type Department Care Team Description 08/01/2020 Allied Health/Nurse Health [facility] Allied Health Visit Visit [address] [address] Social History Tobacco Use [...] containing 4 or more times a w [place] 05/25/2021 alcohol? How many drinks containing alcohol [...] attend latter day or Patient refused 2020 holiness services? Do [...] with No / Unsure 08/01/2020 3:27 PM HOOP RIVETING MACHINE OPERATOR HELPER someone who was confirmed or suspected to have Coronavirus / COVID-19? documented as of this encounter Last Filed Vital Signs Vital Sign Reading Time Taken Comments Blood Pressure 138/84 08/01/2020 3:44 PM HOOP RIVETING MACHINE OPERATOR HELPER Pulse 102 08/01/2020 3:44 PM HOOP RIVETING MACHINE OPERATOR HELPER Temperature - - Respiratory Rate - - Oxygen Saturation 97% 08/01/2020 3:44 PM HOOP RIVETING MACHINE OPERATOR HELPER Inhaled Oxygen Concentration - - Weight - - Height - - Body Mass Index - - documented in this encounter Plan of Treatment Upcoming Encounters Date Type Specialty Care Team Description 05/20/2022 Lab Lab documented as of this encounter Visit Diagnoses Diagnosis BP check - Primary Screening for hypertension documented in this encounter Care Teams Kick Plate Installer Relationship Specialty Start Date End Date Froylan Louise MD PCP - General Family Practice 02/22/14 Froylan Louise MD Assigned PCP 03/13/14 2 documented as of this encounter
--- OUTSIDE RECORDS SUMMARY | 2022-05-15 22:52 | XMS_ITS | Encounter Summary ---
:1955 Author Organization [place] Address [address] [place] [address] Care Team Providers Name Role Phone Froylan Louise MD Primary Care Provider Unavailable Froylan Louise MD Unavailable Unavailable Reason for Visit Reason Comments Medication Refill Encounter Details Date Type Department Care Team Description 10/02/2020 Refill [facility] Froylan Louise Ra, MD Medication Refill [address] [address] Social History Tobacco Use [...] you attend cheondoism or Patient refused 2020 mormonism services? Do [...] hypertension documented in this encounter Care Teams On Air Director Relationship Specialty Start Date End Date Froylan Louise MD PCP - General Family Practice 02/22/14 Froylan Louise MD Assigned PCP 03/13/14 2 documented as of this encounter
--- OUTSIDE RECORDS SUMMARY | 2022-05-15 22:52 | XMS_ITS | Encounter Summary ---
:1955 Author Organization [place] Address [address] [place] [address] Care Team Providers Name Role Phone Froylan Louise MD Primary Care Provider Unavailable Froylan Louise MD Unavailable Unavailable Encounter Details Date Type Department Care Team Description 07/18/2020 Telephone [facility] Froylan Louise Ra, MD [place] [address] [place] [address] Social History Tobacco Use [...] with No / Unsure 07/18/2020 3:08 PM HAMMER FITTER someone who was confirmed or suspected to have Coronavirus / COVID-19? documented as of this encounter Miscellaneous Notes Telephone Encounter - Esthela Corea RN - 07/19/2020 11:40 AM CST Pt is working with his daughter who is territory manager working on diet and exercise. He has stopped drinking and has dropped 4 lbs already. Appt scheduled for 4 weeks out. Esthela Corea RN ER FITTER Telephone Encounter - Froylan Louise MD - 07/19/2020 8:07 AM CST Increase hydrochlorothiazide to 25 mg daily and recheck in 1 month with MA blood pressure check. Canrefill at higher dose pill. ER FITTER Telephone Encounter - Homa Gracia - 07/18/2020 [...] 136/74 05/05/19 130/80 01/09/19 134/78 KENYATTA Villaseñor ER FITTER documented in this encounter Plan of Treatment Upcoming Encounters Date Type Specialty Care Team Description 05/20/2022 Lab Lab documented as of this encounter Visit Diagnoses Not on filedocumented in this encounter Care Teams Malter Operator Relationship Specialty Start Date End Date Froylan Louise MD PCP - General Family Practice 02/22/14 Froylan Louise MD Assigned PCP 03/13/14 2 documented as of this encounter
--- OUTSIDE RECORDS SUMMARY | 2022-05-15 22:52 | XMS_ITS | Encounter Summary ---
:1955 Author Organization [place] Address [address] [facility] [place] [address] Care Team Providers Name Role Phone Froylan Louise MD Primary Care Provider Unavailable Froylan Louise MD Unavailable Unavailable Encounter Details Date Type Department Care Team Description 09/28/2020 Orders Only [facility] Chase Suazo Encoun ter for [facility] screening for other [address] [place] [id number] ASSOC [phone] [address] [place] [address] Social History Tobacco Use Types [...] containing 4 or more times a w [place] 05/25/2021 alcohol? How many drinks containing [...] you attend tenriism or Patient refused 2020 quaker services? Do [...] Component Value Ref Test Analysis Performed At [facility] Range Method Time Signature COVID-19 Nasopharyngeal 10/08/2020 [place] Virus PCR to 11:59 AM [facility] Source COVID-19 Test received-See 10/08/2020 INFECTIOUS Virus PCR to reflex to IDDL 3:48 PM CDT DISEASES [facility] - test SARS CoV2 DIAGNOSTIC Result (COVID-19) Virus LABORATORY, RT-PCR [facility] Specimen (Source) Anatomical Collection Method Collection Time Re ceived Time Location / / Volume Laterality Specimen from 10/08/2020 11:59 10/08/2020 nasopharyngeal AM CDT 12:00 PM CDT structure (specimen) Chase Suazo MD LAB - MICRO GENERAL ORDERABL ES Performing Organization Address City/State/ZIP Code Phon e Number INFECTIOUS DISEASES [address] [place] [address] DIAGNOSTIC LABORATORY, [facility] [address] [phone] documented in this encounter Visit Diagnoses Diagnosis Encounter for screening for other viral diseases documented in this encounter Care Teams Coat Fitter Relationship Specialty Start Date End Date Froylan Louise MD PCP - General Family Practice 02/22/14 Froylan Louise MD Assigned PCP 03/13/14 2 documented as of this encounter
--- OUTSIDE RECORDS SUMMARY | 2022-05-15 22:52 | XMS_ITS | Encounter Summary ---
:1955 Author Organization [place] Address [address] [place] [address] Care Team Providers Name Role Phone Froylan [...] you attend zoroastrian or Patient refused 2020 episcopalian services? Do [...] with No / Unsure 07/18/2020 3:08 PM VISITING TEACHER someone who was confirmed or suspected to have Coronavirus / COVID-19? documented as of this encounter Plan of Treatment Upcoming Encounters Date Type Specialty Care Team Description 05/20/2022 Lab Lab documented as of this encounter Visit Diagnoses Not on filedocumented in this encounter Care Teams Security Manager Relationship Specialty Start Date End Date Froylan Louise MD PCP - General Family Practice 02/22/14 Froylan Louise MD Assigned PCP 03/13/14 2 documented as of this encounter
--- OUTSIDE RECORDS SUMMARY | 2022-05-15 22:52 | XMS_ITS | Encounter Summary ---
:1955 Author Organization [place] Address [address] [place] [address] Care Team Providers Name Role Phone Froylan Louise MD Primary Care Provider Unavailable Froylan Louise MD Unavailable Unavailable Reason for Visit Reason Onset Date Comments Medication Refill Refill Request 07/20/2020 Encounter Details Date Type Department Care Team Description 07/20/2020 Telephone [facility] Froylan Louise [facility] cation Refill; [facility] Chhaya VILLASEÑOR Refill Request [address] [place] [address] Social History Tobacco Use Types [...] you attend mormon or Patient refused 2020 uatsdin services? Do [...] with No / Unsure 07/18/2020 3:08 PM ALLIED HEALTH PROFESSIONAL someone who was confirmed or suspected to have Coronavirus / COVID-19? documented as of this encounter Miscellaneous Notes Telephone Encounter - Diana Nielsen RN - 07/20/2020 3:12 PM CST Patient called back. Did not receive message that 5 mg tablets were sent in, but he is now aware andhas no further questions or concerns. Diana Mukherjee RN Anticoagulation Team ED HEALTH PROFESSIONAL Telephone Encounter - Key Dalton RN - 07/20/2020 3:00 PM CST We did not receive a refill request from the pharmacy for the 5 mg tablets, Just 7.5 mg tablets. A refill for 5 mg tablets sent to the pharmacy and Patient informed. Key Dalton RN Anticoagulation Nurse - [facility], [place] ED HEALTH PROFESSIONAL Telephone Encounter - Sofia Rojas - 07/20/2020 2:52 PM CST Virgil is calling back-stating the pharmacy only refilled the 7.5mg and normally he takes the 5mg. Wondering what Dr Louise would like him to do in this situation? Please advise- PH: [phone] ED HEALTH PROFESSIONAL Telephone Encounter - Key Dalton RN - 07/20/2020 1:27 PM CST Anticoagulation Monitoring Instructions Latest Ref Rng & Units 07/18/2020 5 mg every Wed; 7.5 mg all other days Prescription approved per [facility] Refill Protocol. Key Dalton RN Anticoagulation Nurse - [facility], [place] ED HEALTH PROFESSIONAL Telephone Encounter - Regina Wise RN - 07/20/2020 1:21 PM ALLIED HEALTH PROFESSIONAL Routing to anticoag team. Regina Wise RN Flex ED HEALTH PROFESSIONAL Addendum Note - Key Dalton RN - 07/20/2020 12:25 AM ALLIED HEALTH PROFESSIONAL Addended by: KEY DALTON on: 07/20/2020 03:04 PM Modules accepted: Orders ED HEALTH PROFESSIONAL documented in this encounter Plan of Treatment Upcoming Encounters Date Type Specialty Care Team Description 05/20/2022 Lab Lab documented as of this encounter Visit Diagnoses Diagnosis Acute deep vein thrombosis (DVT) of prox imal vein of both lower extremities (H) detention current use of anticoagulants with INR goal of 2.0-3.0 documented in this encounter Care Teams Inset Cutter Relationship Specialty Start Date End Date Froylan Louise MD PCP - General Family Practice 02/22/14 Froylan Louise MD Assigned PCP 03/13/14 2 documented as of this encounter
--- OUTSIDE RECORDS SUMMARY | 2022-05-15 22:52 | XMS_ITS | Encounter Summary ---
:1955 Author Organization [place] Address [facility] [place] [address] Care Team Providers Name Role Phone Froylan Louise MD Primary Care Provider Unavailable Froylan Louise MD Unavailable Unavailable Reason for Referral Specialty Diagnoses / Procedures Referred By Contact Refer red To Contact Froylan Louise [address] [address] [place] [address] Referral ID Status Reason Start Date Expiration Date Visits Requ ested Visits Authorized Reason for Visit Reason Onset Date Comments Referral 09/04/2020 INR Renewal Encounter Details Date Type Department Care Team Description 09/04/2020 [facility] Froylan Louise Refe rral (INR Renewal) Clinic [place] [address] [place] [address] Social History Tobacco Use [...] you attend presybeterian or Patient refused 2020 evangelical services? 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
--- OUTSIDE RECORDS SUMMARY | 2022-05-15 22:52 | XMS_ITS | Encounter Summary ---
:1955 Author Organization [place] Address [address] [place] [address] Care Team Providers Name Role Phone Froylan Louise MD Primary Care Provider Unavailable Froylan Louise MD Unavailable Unavailable Reason for Visit Reason Comments Allied Health Visit Encounter Details Date Type Department Care Team Description 09/01/2020 Allied Health/Nurse Health [facility] Allied Health Visit Visit [address] [address] Social History Tobacco Use [...] containing 4 or more times a w [place] 05/25/2021 alcohol? How many drinks containing alcohol [...] you attend bahai or Patient refused 2020 pentecostalism services? Do [...] with No / Unsure 09/01/2020 2:58 PM VOCATIONAL HORTICULTURE INSTRUCTOR someone who was confirmed or suspected to have Coronavirus / COVID-19? documented as of this encounter Last Filed Vital Signs Vital Sign Reading Time Taken Comments Blood Pressure 138/84 09/01/2020 3:22 PM VOCATIONAL HORTICULTURE INSTRUCTOR Pulse 95 09/01/2020 3:22 PM VOCATIONAL HORTICULTURE INSTRUCTOR Temperature - - Respiratory Rate 16 09/01/2020 3:22 PM VOCATIONAL HORTICULTURE INSTRUCTOR Oxygen Saturation 97% 09/01/2020 3:22 PM VOCATIONAL HORTICULTURE INSTRUCTOR Inhaled Oxygen Concentration - - Weight - - Height - - Body Mass Index - - documented in this encounter Plan of Treatment Upcoming Encounters Date Type Specialty Care Team Description 05/20/2022 Lab Lab documented as of this encounter Visit Diagnoses Diagnosis BP check - Primary Screening for hypertension documented in this encounter Care Teams Calender Tender Relationship Specialty Start Date End Date Froylan Louise MD PCP - General Family Practice 02/22/14 Froylan Louise MD Assigned PCP 03/13/14 2 documented as of this encounter
--- OUTSIDE RECORDS SUMMARY | 2022-05-15 22:52 | XMS_ITS | Encounter Summary ---
:1955 Author Organization [place] Address [facility] [place] [address] Care Team Providers Name Role Phone Froylan Louise MD Primary Care Provider Unavailable Froylan Louise MD Unavailable Unavailable Encounter Details Date Type Department Care Team Description 09/04/2020 Orders Only [facility] Froylan Louise lead embedded software engineer current use of anticoagulants with INR goal of 2.0-3.0 (Primary Dx); Clinic Chhaya Dubose MD Chronic deep vein thrombosis (DVT) of lower extremity, unspecified laterality, unspecified vein (H) [address] [place] [address] Social History Tobacco Use Types [...] containing 4 or more times a w [place] 05/25/2021 alcohol? How many drinks containing alcohol [...] you attend buddhism or Patient refused 2020 spiritism services? Do [...] as of this encounter Visit Diagnoses Diagnosis snf current use of anticoagulants with INR goal of 2.0-3.0 - Primary Chronic deep vein thrombosis (DVT) of lo wer extremity, unspecified laterality, unspecified vein (H) documented in this encounter Care Teams It Consulting Director Relationship Specialty Start Date End Date Froylan Louise MD PCP - General Family Practice 02/22/14 Froylan Louise MD Assigned PCP 03/13/14 2 documented as of this encounter
--- OUTSIDE RECORDS SUMMARY | 2022-05-15 22:52 | XMS_ITS | Encounter Summary ---
:1955 Author Organization [place] Address [address] [place] [address] Care Team Providers Name Role Phone Froylan Louise MD Primary Care Provider Unavailable Froylan Louise MD Unavailable Unavailable Reason for Visit Reason Comments Medication Refill Encounter Details Date Type Department Care Team Description 07/31/2020 Refill [facility] Froylan Louise Ra, MD Medication Refill [address] [address] Social History Tobacco Use [...] you attend buddhism or Patient refused 2020 buddhist services? Do [...] with No / Unsure 07/18/2020 3:08 PM BOBBIN CLEANING MACHINE OPERATOR someone who was confirmed or suspected to have Coronavirus / COVID-19? documented as of this encounter Miscellaneous Notes Telephone Encounter - Halina Ley RN - 07/31/2020 1:29 PM CST Prescription approved per [facility] Refill Protocol. Halina Bustillos RN, BSN IN CLEANING MACHINE OPERATOR documented in this encounter Plan of Treatment Upcoming Encounters Date Type Specialty Care Team Description 05/20/2022 Lab Lab documented as of this encounter Visit Diagnoses Diagnosis Lichen planus documented in this encounter Care Teams Logging Crew Foreman Relationship Specialty Start Date End Date Froylan Louise MD PCP - General Family Practice 02/22/14 Froylan Louise MD Assigned PCP 03/13/14 2 documented as of this encounter
--- OUTSIDE RECORDS SUMMARY | 2022-05-15 22:52 | XMS_ITS | Encounter Summary ---
:1955 Author Organization [place] Address [address] [place] [address] Care Team Providers Name Role Phone Froylan [...] you attend confucianist or Patient refused 2020 episcopalian services? Do [...] with No / Unsure 09/01/2020 2:58 PM MIDDLE SCHOOL HUMANITIES TEACHER someone who was confirmed or suspected to have Coronavirus / COVID-19? documented as of this encounter Plan of Treatment Upcoming Encounters Date Type Specialty Care Team Description 05/20/2022 Lab Lab documented as of this encounter Visit Diagnoses Not on filedocumented in this encounter Care Teams In Flight Refueling Craftsman Relationship Specialty Start Date End Date Froylan Louise MD PCP - General Family Practice 02/22/14 Froylan Louise MD Assigned PCP 03/13/14 2 documented as of this encounter
--- OUTSIDE RECORDS SUMMARY | 2022-05-15 22:52 | XMS_ITS | Encounter Summary ---
:1955 Author Organization [place] Address [address] [place] [address] Care Team Providers Name Role Phone Froylan [...] you attend advent or Patient refused 2020 jewish services? Do [...] on filedocumented in this encounter Care Teams Recording Studio Intern Relationship Specialty Start Date End Date Froylan Louise MD PCP - General Family Practice 02/22/14 Froylan Louise MD Assigned PCP 03/13/14 2 documented as of this encounter
--- OUTSIDE RECORDS SUMMARY | 2022-05-15 22:52 | XMS_ITS | Encounter Summary ---
:1955 Author Organization [place] Address [facility] [place] [address] Care Team Providers Name Role Phone Froylan Louise MD Primary Care Provider Unavailable Froylan Louise MD Unavailable Unavailable Encounter Details Date Type Department Care Team Description 07/18/2020 Anticoagulation Therapy [facility], Chronic deep vein thrombosis (DVT) of lower extremity, unspecified laterality, unspecified vein (H); Visit [facility] [place] Esthela Dobbs, correction current use of ant icoagulant therapy [address] [place] [address] Social History Tobacco Use Types [...] you attend congregational or Patient refused 2020 uatsdin services? Do [...] with No / Unsure 07/18/2020 3:08 PM SIGN HANGER SUPERVISOR someone who was confirmed or suspected [...] location: Preferred lab: Send INR reminders to: [facility] Comments: Anticoagulation Care Providers Provider Role Specialty Phone number Froylan Louise MD Referring Family Medicine [phone] See the Encounter Report to view Anticoagulation Flowsheet and Dosing Calendar (Go to Encounters tabin chart review, and find the Anticoagulation Therapy Visit) Dosage adjustment made based on physician directed care plan. Esthela Randhawa RN HANGER SUPERVISOR documented in this encounter Plan of Treatment Upcoming Encounters Date Type Specialty Care Team Description 05/20/2022 Lab Lab documented as of this encounter Visit Diagnoses Diagnosis Chronic deep vein thrombosis (DVT) of lo wer extremity, unspecified laterality, unspecified vein (H) correction current use of anticoagulant t herapy documented in this encounter Care Teams Child Care Education Coordinator Relationship Specialty Start Date End Date Froylan Louise MD PCP - General Family Practice 02/22/14 Froylan Louise MD Assigned PCP 03/13/14 2 documented as of this encounter
--- OUTSIDE RECORDS SUMMARY | 2022-05-15 22:52 | XMS_ITS | Encounter Summary ---
:1955 Author Organization [place] Address [facility] [place] [address] Care Team Providers Name Role Phone Froylan Louise MD Primary Care Provider Unavailable Froylan Louise MD Unavailable Unavailable Encounter Details Date Type Department Care Team Description 09/18/2020 Anticoagulation Therapy [facility] Audrey Louise Chronic deep vein thrombosis (DVT) of lower extremity, unspecified laterality, unspecified vein (H); Visit Clinic Chhaya Dubose MD jail current use of ant icoagulant therapy [address] [place] [address] Social History Tobacco Use Types [...] lab: Send INR reminders to: [facility] Comments: Anticoagulation Care Providers Provider Role Specialty Phone number Froylan Louise MD Referring Family Medicine [phone] See the Encounter Report to view Anticoagulation [...] wer extremity, unspecified laterality, unspecified vein (H) jail current use of anticoagulant t herapy documented in this encounter Care Teams Workers Compensation Consultant Relationship Specialty Start Date End Date Froylan Louise MD PCP - General Family Practice 02/22/14 Froylan Louise MD Assigned PCP 03/13/14 2 documented as of this encounter
--- OUTSIDE RECORDS SUMMARY | 2022-05-15 22:52 | XMS_ITS | Encounter Summary ---
:1955 Author Organization [place] Address [facility] [place] [address] Care Team Providers Name Role Phone Froylan Louise MD Primary Care Provider Unavailable Froylan Louise MD Unavailable Unavailable Encounter Details Date Type Department Care Team Description 09/18/2020 Orders Only [facility] onic deep vein thrombosis (DVT) of lower extremity, unspecified laterality, unspecified vein (H); [facility] tank terminal gauger current use of ant icoagulants with INR goal of 2.0-3.0 [address] [place] [address] Social History Tobacco Use [...] you attend taoist or Patient refused 2020 alevism services? Do [...] unspecified vein (H) shelter current use of anticoagulants with INR goal of 2.0-3.0 documented in this encounter Results Capillary Blood Collection (09/18/2020 3:10 PM CDT) Patholo gist Method Time Signature Capillary Capillary 09/18/2020 [place] Blood collection 3:15 PM CDT CLINICS Collection performed [place] Specimen Anatomical Collection Method Collection Time Receive d Time (Source) Location / / Volume Laterality 09/18/2020 3:10 PM 3:15 CDT PM CDT Froylan Louise MD LAB - LAB COMMUNICATION Performing Organization Address City/State/ZIP Code Phon e Number [facility] [id number] [place] [address] (ABNORMAL) INR (09/18/2020 3:10 PM CDT) P athologist Signature INR 2.90 (H) 0.86 - 1.14 09/18/2020 [place] 3:26 PM CDT [facility] Comment: This test [...] Organization Address City/State/ZIP Code Phon e Number [facility] [id number] [place] [address] documented in this encounter Visit Diagnoses Diagnosis Chronic deep vein thrombosis (DVT) of lo wer extremity, unspecified laterality, unspecified vein (H) tank terminal gauger current use of anticoagulants with INR goal of 2.0-3.0 documented in this encounter Care Teams Outdoor Power Equipment Mechanic Relationship Specialty Start Date End Date Froylan Louise MD PCP - General Family Practice 02/22/14 Froylan Louise MD Assigned PCP 03/13/14 2 documented as of this encounter
--- OUTSIDE RECORDS SUMMARY | 2022-05-15 22:52 | XMS_ITS | Encounter Summary ---
:1955 Author Organization [place] Address [address] [place] [address] Care Team Providers Name Role Phone Froylan [...] 4 or more times a w [place] 05/25/2021 alcohol? How many drinks containing [...] you attend jain or Patient refused 2020 sikhism services? Do [...] on filedocumented in this encounter Care Teams Chinese Language Professor Relationship Specialty Start Date End Date Froylan Louise MD PCP - General Family Practice 02/22/14 Froylan Louise MD Assigned PCP 03/13/14 2 documented as of this encounter
--- OUTSIDE RECORDS SUMMARY | 2022-05-15 22:52 | XMS_ITS | Encounter Summary ---
:1955 Author Organization [place] Address [address] [place] [address] Care Team Providers Name Role Phone Froylan Louise MD Primary Care Provider Unavailable Froylan Louise MD Unavailable Unavailable Reason for Visit Reason Comments Medication Refill Encounter Details Date Type Department Care Team Description 09/06/[address] [facility] Froylan Louise Ra, MD Medication Refill [address] [address] Social History Tobacco [...] containing 4 or more times a w [place] 05/25/2021 alcohol? How many drinks containing alcohol [...] you attend lutheran or Patient refused 2020 adventism services? Do [...] stream documented in this encounter Care Teams Train Engineer Relationship Specialty Start Date End Date Froylan Louise MD PCP - General Family Practice 02/22/14 Froylan Louise MD Assigned PCP 03/13/14 2 documented as of this encounter
--- OUTSIDE RECORDS SUMMARY | 2022-05-15 22:52 | XMS_ITS | Encounter Summary ---
:1955 Author Organization [place] Address [address] [place] [address] Care Team Providers Name Role Phone Froylan [...] you attend scientologist or Patient refused 2020 buddhist services? Do [...] with No / Unsure 08/01/2020 3:27 PM CHRISTMAS TREE FARM WORKER someone who was confirmed or suspected to have Coronavirus / COVID-19? documented as of this encounter Plan of Treatment Upcoming Encounters Date Type Specialty Care Team Description 05/20/2022 Lab Lab documented as of this encounter Visit Diagnoses Not on filedocumented in this encounter Care Teams Sprue Knocker Relationship Specialty Start Date End Date Froylan Louise MD PCP - General Family Practice 02/22/14 Froylan Louise MD Assigned PCP 03/13/14 2 documented as of this encounter
--- OUTSIDE RECORDS SUMMARY | 2022-05-15 22:52 | XMS_ITS | Encounter Summary ---
:1955 Author Organization [place] Address [address] [place] [address] Care Team Providers Name Role Phone Froylan Louise MD Primary Care Provider Unavailable Froylan Louise MD Unavailable Unavailable Encounter Details Date Type Department Care Team Description 08/01/2020 Orders Only [facility] Per killian history of DVT [facility] (deep vein thrombosis) [address] [place] [address] Social History Tobacco Use [...] you attend latter-day or Patient refused 2020 denominational services? Do [...] with No / Unsure 08/01/2020 3:10 PM WEB CONTENT MANAGER someone who was confirmed or suspected to have Coronavirus / COVID-19? documented as of this encounter Plan of Treatment Upcoming Encounters Date Type Specialty Care Team Description 05/20/2022 Lab Lab documented as of this encounter Procedures Procedure Name Priority Date/Time Associated Comments Diagnosis CAPILLARY BLOOD Routine 08/01/2020 3:07 PM Personal history of Results for this COLLECTION WEB CONTENT MANAGER DVT (deep vein procedure are in thrombosis) the results section. INR Routine 08/01/2020 3:07 PM Personal history of Re sults for this WEB CONTENT MANAGER DVT (deep vein procedure are in thrombosis) the results section. documented in this encounter Results Capillary Blood Collection (08/01/2020 3:07 PM WEB CONTENT MANAGER) [facility] Method Time Signature Capillary Capillary 08/01/2020 [place] Blood collection 3:13 PM WEB CONTENT MANAGER CLINICS Collection performed [place] Specimen Anatomical Collection Method Collection Time Receive d Time (Source) Location / / Volume Laterality 08/01/2020 3:07 PM 3:12 WEB CONTENT MANAGER PM WEB CONTENT MANAGER Froylan Louise MD LAB - LAB COMMUNICATION Performing Organization Address City/[facility]/ZIP Code Phon e Number [facility] [id number] [place] [address] (ABNORMAL) INR (08/01/2020 3:07 PM WEB CONTENT MANAGER) P athologist Signature INR 2.80 (H) 0.86 - 1.14 08/01/2020 [place] 3:53 PM WEB CONTENT MANAGER [facility] Comment: This test is intended for monitoring Cou madin therapy. ??Results are not accurate in patients with prolonged INR due to factor deficiency. Specimen Anatomical Collection Method Collection Time Receive d Time (Source) Location / / Volume Laterality Blood specimen 08/01/2020 3:07 PM 021 3:12 (specimen) WEB CONTENT MANAGER PM WEB CONTENT MANAGER Froylan Louise MD LAB - BLOOD ORDERABLES Performing Organization Address City/[facility]/ZIP Code Phon e Number [facility] [address] [place] [address] documented in this encounter Visit Diagnoses Diagnosis Personal history of DVT (deep vein throm bosis) Personal history of venous thrombosis an d embolism documented in this encounter Care Teams Central Sterile Supply Technician Relationship Specialty Start Date End Date Froylan Louise MD PCP - General Family Practice 02/22/14 Froylan Louise MD Assigned PCP 03/13/14 2 documented as of this encounter
--- OUTSIDE RECORDS SUMMARY | 2022-05-15 22:52 | XMS_ITS | Encounter Summary ---
:1955 Author Organization [place] Address [address] [place] [address] Care Team Providers Name Role Phone Dhruv Louise MD Primary Care Provider Unavailable Dhruv Louise MD Unavailable Unavailable Encounter Details Date Type Department Care Team Description 09/03/2020 Orders Only [facility] Hyp erlipidemia LDL goal <130 (Primary Dx); [facility] Essential hypertension; [address] [facility] Lipid screening; [place] [address] Personal history of DVT (gino p vein thrombosis) [phone] Social History Tobacco Use Types Packs/Day Years [...] you attend taoist or Patient refused 2020 samaritan services? Do [...] INR 3.20 (H) 0.86 - 1.14 09/03/2020 [place] 12:12 PM CDT [facility] Comment: This test is intended for monitoring [...] Organization Address City/State/ZIP Code Phon e Number [facility] [address] [place], [place] [id number] (ABNORMAL) Lipid panel reflex to direct LDL Fasting (09/03/2020 9:09 AM CDT) Analysis Performed At Patho logist Time Signature Cholesterol 196 <200 mg/dL 09/03/2020 [place] 2:17 PM T [facility] Triglycerides 211 (H) <150 mg/dL 09/03/2020 [place] 2:18 PM T [facility] Comment: Borderline high: ??150-199 mg/dl High: ? 200-499 mg/dl Very high: ? >499 mg/dl Fasting specimen HDL Cholesterol 36 (L) >39 mg/dL 09/03/2020 2:22 PM [facility] T [facility] LDL Cholesterol 118 (H) <100 mg/dL 09/03/2020 2:22 PM [facility] Calculated T [facility] Comment: Above desirable: ??100-129 mg/dl Borderline High: ??130-159 mg/dL High: ? 160-189 mg/dL Very high: ? >189 mg/dl Non HDL Cholesterol 160 (H) <130 mg/dL 09/03/2020 2:22 PM [facility] Comment: Above Desirable: ??130-159 mg/dl Borderline high: ??160-189 mg/dl High: ? 190-219 mg/dl Very high: ? >219 mg/dl Specimen Anatomical Collection Method Collection Time Receive d Time (Source) Location / / Volume Laterality Blood specimen 09/03/2020 9:09 AM 021 9:10 (specimen) CDT AM CDT Dhruv Louise MD LAB - BLOOD ORDERABLES Performing Organization Address City/State/ZIP Code Phon e Number [facility] [address] [place], [place] [address] [facility] [address] [address], [place] [phone] (ABNORMAL) Basic metabolic panel (Ca, Cl, CO2, Creat, Gluc, K, Na, BUN) (09/03/2020 9:09 AM CDT) Analysis Performed At Patho logist Time Signature Sodium 139 133 - 144 09/03/2020 [place] mmol/L 2:12 PM CDT [facility] Potassium 4.0 3.4 - 5.3 09/03/2020 [place] mmol/L 2:12 PM T [facility] Chloride 107 94 - 109 09/03/2020 [place] mmol/L 2:12 PM T [facility] Carbon Dioxide 30 20 - 32 09/03/2020 [place] mmol/L 2:17 PM [facility] Anion Gap 2 (L) 3 - 14 09/03/2020 [place] mmol/L 2:17 PM [facility] Glucose 105 (H) 70 - 99 09/03/2020 [place] mg/dL 2:17 PM [facility] Comment: Fasting specimen Urea Nitrogen 15 7 - 30 mg/dL 09/03/2020 2:17 PM [facility] Creatinine 0.89 0.66 - 1.25 mg/dL 09/03/2020 2:17 PM [facility] GFR Estimate >90 >60 09/03/2020 2:17 PM T [facility] mL/min/{1.73_m2} [facility] Comment: Non GFR Calc Starting 06/09/2018, serum creatinine ba sed estimated GFR (eGFR) will be calculated using the Chronic Kidney Dise [facility] Epidemiology Collaboration (CKD-EPI) equation. GFR Estimate If >90 >60 mL/min/{1.73_m2} 09/03/2020 2: 17 PM [facility] Comment: GFR Calc Starting 06/09/2018, serum creatinine ba sed estimated GFR (eGFR) will be calculated using the Chronic Kidney Dise [facility] Epidemiology Collaboration (CKD-EPI) equation. Calcium 8.8 8.5 - 10.1 mg/dL 09/03/2020 2:17 PM [facility] Specimen Anatomical Collection Method Collection Time Receive d Time (Source) Location / / Volume Laterality Blood specimen 09/03/2020 9:09 AM 021 9:10 (specimen) CDT AM CDT Dhruv Louise MD LAB - BLOOD ORDERABLES Performing Organization Address City/State/ZIP Code Phon e Number [facility] [address] [address] [phone] [facility] [address] [place], [place] [address] [facility] [address] [address], [place] [phone] documented in this encounter Visit Diagnoses Diagnosis Hyperlipidemia LDL goal <130 - Primary Other and unspecified hyperlipidemia Essential hypertension Unspecified essential hypertension Lipid screening Screening for lipoid disorders Personal history of DVT (deep vein throm bosis) Personal history of venous thrombosis an d embolism documented in this encounter Care Teams Flyer Repairer Relationship Specialty Start Date End Date Dhruv Louise MD PCP - General Family Practice 02/22/14 Dhruv Louise MD Assigned PCP 03/13/14 2 documented as of this encounter
--- OUTSIDE RECORDS SUMMARY | 2022-05-15 22:52 | XMS_ITS | Encounter Summary ---
:1955 Author Organization [place] Address [facility] [place] [address] Care Team Providers Name Role Phone Froylan Louise MD Primary Care Provider Unavailable Froylan Lousie MD Unavailable Unavailable Encounter Details Date Type Department Care Team Description 09/04/[address] [facility] Audrey Louise Chronic deep vein thrombosis (DVT) of lower extremity, unspecified laterality, unspecified vein (H); Visit Clinic Chhaya Dubose MD [facility] current use of ant icoagulant therapy [address] [place] [address] Social History Tobacco Use Types [...] you attend congregational or Patient refused 2020 shinto services? 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
--- OUTSIDE RECORDS SUMMARY | 2022-05-15 22:52 | XMS_ITS | Encounter Summary ---
:1955 Author Organization [place] Address [address] [place] [address] Care Team Providers Name Role Phone Froylan Louise MD Primary Care Provider Unavailable Froylan Louise MD Unavailable Unavailable Reason for Visit Reason Onset Date Comments Anticoagulation 09/18/2020 hold/bridge assessme nt Encounter Details Date Type Department Care Team Description 09/18/2020 Telephone [facility] Chhaya Dubose MD (hold/bridge assessment) [address] [place] [address] Social History Tobacco Use Types [...] you attend samaritan or Patient refused 2020 mandaeism services? Do [...] lovenox bridge instructions sent to patient via [employer]. Can discuss any other concerns or questions [...] with plan. Telephone Encounter - Antonieta Randhawa [facility] - 09/22/2020 1:21 PM CDT IAN-PROCEDURAL ANTICOAGULATION MANAGEMENT Assessment Warfarin interruption plan for pouchoscopy on 10/12/2020. DVT 2007, 2008, Lupus anticoagulant positive ?? Risk stratification for thromboembolism: high (2012 Chest guidelines) ?? LAC + 01/05/2018 & 06/05/2018 VTE: 2018 [place] Society of Hematology recommends against bridging in [...] (238 lb) 08/10/18 104.8 kg (231 lb) [place] body weight: 74.1 kg (163 lb 7.5 [...] scheduled for a pouchoscopy 10/12/20. Routing to [facility] pharmacist for hold/bridge assessment. Patient has bridged with Lovenox in the past. Diana Mukherjee RN Anticoagulation Team documented in this encounter Plan of Treatment Upcoming Encounters Date Type Specialty Care Team Description 05/20/2022 Lab Lab documented as of this encounter Visit Diagnoses Diagnosis prison current use of anticoagulant t herapy - Primary Chronic deep vein thrombosis (DVT) of lo wer extremity, unspecified laterality, unspecified vein (H) documented in this encounter Care Teams Carbon Paper Interleafer Relationship Specialty Start Date End Date Froylan Louise MD PCP - General Family Practice 02/22/14 Froylan Louise MD Assigned PCP 03/13/14 2 documented as of this encounter
--- OUTSIDE RECORDS SUMMARY | 2022-05-15 22:52 | XMS_ITS | Encounter Summary ---
:1955 Author Organization [place] Address [address] [place] [address] Care Team Providers Name Role Phone Froylan Louise MD Primary Care Provider Unavailable Froylan Louise MD Unavailable Unavailable Reason for Visit Reason Onset Date Comments Medication Question 08/03/2020 Encounter Details Date Type Department Care Team Description 08/03/2020 Telephone [facility] Froylan Louise Ra, Medication Question Chhaya VILLASEÑOR [address] [place] [address] Social History Tobacco Use [...] you attend moravian or Patient refused 2020 sabianism services? Do [...] with No / Unsure 08/01/2020 3:27 PM KNIFE BLADE POLISHER someone who was confirmed or suspected to have Coronavirus / COVID-19? documented as of this encounter Miscellaneous Notes Telephone Encounter - Halina Ley RN - 08/04/2020 8:23 AM CST Called patient per below. Denies any pain or redness. States that his foot is swollen too and is just extra fluid. Advised patient to follow up with us next week. Halina Bustillos RN, BSN E BLADE POLISHER Telephone Encounter - Froylan Louise MD - [...] and we can order that at [facility] or can dothrough ADS tomorrow if worse. E BLADE POLISHER Telephone Encounter - Halina Ley RN - [...] is more appropriate. Halina Bustillos RN, BSN E BLADE POLISHER documented in this encounter Plan of Treatment Upcoming Encounters Date Type Specialty Care Team Description 05/20/2022 Lab Lab documented as of this encounter Visit Diagnoses Not on filedocumented in this encounter Care Teams Junior Database Administrator Relationship Specialty Start Date End Date Froylan Louise MD PCP - General Family Practice 02/22/14 Froylan Louise MD Assigned PCP 03/13/14 2 documented as of this encounter
--- OUTSIDE RECORDS SUMMARY | 2022-05-15 22:52 | XMS_ITS | Encounter Summary ---
:1955 Author Organization [place] Address [address] [place] [address] Care Team Providers Name Role Phone Froylan Louise MD Primary Care Provider Unavailable Froylan Louise MD Unavailable Unavailable Reason for Visit Reason Onset Date Comments Hypertension 08/01/2020 nurse Encounter Details Date Type Department Care Team Description 08/01/2020 Telephone [facility] Froylan Louise Ra, Hypertension (nurse) Chhaya VILLASEÑOR [address] [place] [address] Social History Tobacco Use [...] with No / Unsure 08/01/2020 3:27 PM CROP DUSTER someone who was confirmed or suspected to [...] set up in 2 weeks.Berto Daniel CMA DUSTER documented in this encounter Plan of Treatment Upcoming Encounters Date Type Specialty Care Team Description 05/20/2022 Lab Lab documented as of this encounter Visit Diagnoses Not on filedocumented in this encounter Care Teams Flexible Shaft Winder Relationship Specialty Start Date End Date Froylan Louise MD PCP - General Family Practice 02/22/14 Froylan Louise MD Assigned PCP 03/13/14 2 documented as of this encounter
--- OUTSIDE RECORDS SUMMARY | 2022-05-15 22:52 | XMS_ITS | Encounter Summary ---
:1955 Author Organization [place] Address [address] [place] [address] Care Team Providers Name Role Phone Froylan Louise MD Primary Care Provider Unavailable Froylan Louise MD Unavailable Unavailable Reason for Visit Reason Onset Date Comments Hypertension 09/01/2020 nurse only Encounter Details Date Type Department Care Team Description 09/01/2020 Telephone [facility] Froylan Louise Hype rtension (nurse Clinic Chhaya VILLASEÑOR only) [address] [place] [address] Social History Tobacco Use Types [...] you attend confucianism or Patient refused 2020 bahai services? Do [...] you need to reach out, [facility]Berto Daniel CMA TENDER documented in this encounter Plan of Treatment Upcoming Encounters Date Type Specialty Care Team Description 05/20/2022 Lab Lab documented as of this encounter Visit Diagnoses Not on filedocumented in this encounter Care Teams Demo Event Specialist Relationship Specialty Start Date End Date Froylan Louise MD PCP - General Family Practice 02/22/14 Froylan Louise MD Assigned PCP 03/13/14 2 documented as of this encounter
--- OUTSIDE RECORDS SUMMARY | 2022-05-15 22:52 | XMS_ITS | Encounter Summary ---
:1955 Author Organization [place] Address [address] [place] [address] Care Team Providers Name Role Phone Froylan Louise MD Primary Care Provider Unavailable Froylan Louise MD Unavailable Unavailable Encounter Details Date Type Department Care Team Description 09/01/2020 Orders Only [facility] Per killian history of DVT [facility] (deep vein thrombosis) [address] [place] [address] Social History Tobacco Use [...] you attend caodaism or Patient refused 2020 alevism services? Do [...] with No / Unsure 09/01/2020 2:53 PM BLACK JACK DEALER someone who was confirmed or suspected to have Coronavirus / COVID-19? documented as of this encounter Plan of Treatment Upcoming Encounters Date Type Specialty Care Team Description 05/20/2022 Lab Lab documented as of this encounter Visit Diagnoses Diagnosis Personal history of DVT (deep vein throm bosis) Personal history of venous thrombosis an d embolism documented in this encounter Care Teams Financial Report Service Sales Agent Relationship Specialty Start Date End Date Froylan Louise MD PCP - General Family Practice 02/22/14 Froylan Louise MD Assigned PCP 03/13/14 2 documented as of this encounter
--- OUTSIDE RECORDS SUMMARY | 2022-05-15 22:52 | XMS_ITS | Encounter Summary ---
:1955 Author Organization [place] Address [facility] [place] [address] Care Team Providers Name Role Phone Froylan Louise MD Primary Care Provider Unavailable Froylan Louise MD Unavailable Unavailable Encounter Details Date Type Department Care Team Description 08/01/[address] [facility] Audrey Louise Chronic deep vein thrombosis (DVT) of lower extremity, unspecified laterality, unspecified vein (H); Visit Clinic Chhaya Dubose MD drafter civil current use of ant icoagulant therapy [address] [place] [address] Social History Tobacco Use Types [...] you attend latter-day or Patient refused 2020 quaker services? Do [...] with No / Unsure 08/01/2020 3:27 PM CHICKEN TENDER someone who was confirmed or suspected [...] Preferred lab: Send INR reminders to: [facility] Comments: Anticoagulation Care Providers Provider Role Specialty Phone number Froylan Louise MD Referring Family Medicine [phone] See the Encounter Report to view Anticoagulation Flowsheet and Dosing Calendar (Go to Encounters tabin chart review, and find the Anticoagulation Therapy Visit) Diana Nielsen RN KEN TENDER documented in this encounter Plan of Treatment Upcoming Encounters Date Type Specialty Care Team Description 05/20/2022 Lab Lab documented as of this encounter Visit Diagnoses Diagnosis Chronic deep vein thrombosis (DVT) of lo wer extremity, unspecified laterality, unspecified vein (H) custodial current use of anticoagulant t herapy documented in this encounter Care Teams Chimney Builder Relationship Specialty Start Date End Date Froylan Louise MD PCP - General Family Practice 02/22/14 Froylan Louise MD Assigned PCP 03/13/14 2 documented as of this encounter
--- OUTSIDE RECORDS SUMMARY | 2022-05-15 22:52 | XMS_ITS | Encounter Summary ---
:1955 Author Organization [place] Address [address] [place] [address] Care Team Providers Name Role Phone Froylan Louise MD Primary Care Provider Unavailable Froylan Louise MD Unavailable Unavailable Reason for Visit Reason Comments Medication Refill Encounter Details Date Type Department Care Team Description 08/29/2020 Refill [facility] Froylan Louise Ra, MD Medication Refill [address] [address] Social History Tobacco [...] you attend gnosticist or Patient refused 2020 faith services? Do [...] with No / Unsure 08/01/2020 3:27 PM RECORDS MANAGEMENT ASSOCIATE someone who was confirmed or suspected to have Coronavirus / COVID-19? documented as of this encounter Miscellaneous Notes Telephone Encounter - Wendi Lindsay RN - 08/29/2020 1:23 PM CST Routing refill request to provider for review/approval because: Drug not on the [facility] refill protocol Wendi Lindsay RN, BSN RDS MANAGEMENT ASSOCIATE documented in this encounter Plan of Treatment Upcoming Encounters Date Type Specialty Care Team Description 05/20/2022 Lab Lab documented as of this encounter Visit Diagnoses Diagnosis H/O ulcerative colitis Personal history of other diseases of di gestive system documented in this encounter Care Teams Sports Commentator Relationship Specialty Start Date End Date Froylan Louise MD PCP - General Family Practice 02/22/14 Froylan Louise MD Assigned PCP 03/13/14 2 documented as of this encounter
--- OUTSIDE RECORDS SUMMARY | 2022-05-15 22:53 | XMS_ITS | Encounter Summary ---
:1955 Author Organization [place] Address [address] [place] [address] Care Team Providers Name Role Phone Froylan Louise MD Primary Care Provider Unavailable Froylan Louise MD Unavailable Unavailable Reason for Visit Reason Onset Date Comments Patient/info Update 06/09/2020 bp check Encounter Details Date Type Department Care Team Description 06/09/2020 Telephone [facility] Froylan Louise Pati ent/info Update (bp Clinic [facility] check) [address] [place] [address] Social History Tobacco Use [...] with No / Unsure 06/09/2020 3:26 PM FLAT SORTER PROCESSOR someone who was confirmed or suspected to have Coronavirus / COVID-19? documented as of this encounter Miscellaneous Notes Telephone Encounter - Wendi Lindsay RN - 06/12/2020 9:23 AM CST Pt agrees with plan. Please sign orders. Wendi Lindsay RN, BSN SORTER PROCESSOR Telephone Encounter - Froylan Louise MD - 06/11/2020 10:10 AM CST Not controlled. Recommend consider hydrochlorothiazide 12.5 mg daily for BP with MA BP recheck in 3 weeks with lab (already has lab-only on 06/30) for BMP. SORTER PROCESSOR Telephone Encounter - Marco Pak CMA - 06/09/2020 3:43 PM CST Virgil Christine is a 64 year old patient who comes in today for a Blood Pressure check. Initial BP: BP (!) 144/92 (BP Location: Right arm, Patient Position: Sitting, Cuff Size: Adult Large) Pulse 74 74 Disposition: results routed to provider ?? Patient states takes medication as prescribed ?? Marco Pak CMA SORTER PROCESSOR documented in this encounter Plan of Treatment Upcoming Encounters Date Type Specialty Care Team Description 05/20/2022 Lab Lab documented as of this encounter Results (ABNORMAL) Basic metabolic panel (Ca, Cl, CO2, Creat, Gluc, K, Na, BUN) (09/03/2020 9:09 AM CDT) Analysis Performed At [facility] Time Signature Sodium 139 133 - 144 09/03/2020 [facility] mmol/L 2:12 PM CDT [facility] Potassium 4.0 3.4 - 5.3 09/03/2020 [facility] mmol/L 2:12 PM CDT [facility] Chloride 107 94 - 109 09/03/2020 [facility] mmol/L 2:[address] [facility] Carbon Dioxide 30 20 - 32 09/03/2020 [facility] mmol/L 2:17 PM [facility] Anion Gap 2 (L) 3 - 14 09/03/2020 [facility] mmol/L 2:17 PM [facility] Glucose 105 (H) 70 - 99 09/03/2020 [facility] mg/dL 2:17 PM [facility] Comment: Fasting specimen Urea Nitrogen 15 7 - 30 mg/dL 09/03/2020 2:17 PM [facility] Creatinine 0.89 0.66 - 1.25 mg/dL 09/03/2020 2:17 PM [facility] GFR Estimate >90 >60 09/03/2020 2:17 PM T [facility] mL/min/{1.73_m2} [facility]OSPITAL Comment: Non GFR Calc Starting 06/09/2018, serum creatinine ba sed estimated GFR (eGFR) will be calculated using the Chronic Kidney Dise [facility] Epidemiology Collaboration (CKD-EPI) equation. GFR Estimate If >90 >60 mL/min/{1.73_m2} 09/03/2020 2: [address] [facility] Comment: GFR Calc Starting 06/09/2018, serum creatinine ba sed estimated GFR (eGFR) will be calculated using the Chronic Kidney Dise [facility] Epidemiology Collaboration (CKD-EPI) equation. Calcium 8.8 8.5 - 10.1 mg/dL 09/03/2020 2:17 PM [facility] Specimen Anatomical Collection Method Collection Time Receive d Time (Source) Location / / Volume Laterality Blood specimen 09/03/2020 9:09 AM 021 9:10 (specimen) CDT AM CDT Froylan Louise MD LAB - BLOOD ORDERABLES Performing Organization Address City/State/ZIP Code Phon e Number M [facility] [address] [address] [facility] [address] [place], [place] [address] [facility] [address] [address], [facility] [phone] (ABNORMAL) Lipid panel reflex to direct LDL Fasting (09/03/2020 9:09 AM CDT) Analysis Performed At Patho logist Time Signature Cholesterol 196 <200 mg/dL 09/03/2020 [facility] 2:17 PM CDT [facility] Triglycerides 211 (H) <150 mg/dL 09/03/2020 [facility] 2:18 PM CDT [facility] Comment: Borderline high: ??150-199 mg/dl High: ? 200-499 mg/dl Very high: ? >499 mg/dl Fasting specimen HDL Cholesterol 36 (L) >39 mg/dL 09/03/2020 2:22 PM [facility] LDL Cholesterol 118 (H) <100 mg/dL 09/03/2020 2:22 PM [facility] CDT [facility] Comment: Above desirable: ??100-129 mg/dl Borderline High: ??130-159 mg/dL High: ? 160-189 mg/dL Very high: ? >189 mg/dl Non HDL Cholesterol 160 (H) <130 mg/dL 09/03/2020 2:22 PM [facility] Comment: Above Desirable: ??130-159 mg/dl Borderline high: ??160-189 mg/dl High: ? 190-219 mg/dl Very high: ? >219 mg/dl Specimen Anatomical Collection Method Collection Time Receive d Time (Source) Location / / Volume Laterality Blood specimen 09/03/2020 9:09 AM 021 9:10 (specimen) CDT AM CDT Froylan Louise MD LAB - BLOOD ORDERABLES Performing Organization Address City/State/ZIP Code Phon e Number [facility] [address] [place], [place] [address] [facility] [address] [address], [facility] [phone] documented in this encounter Visit Diagnoses Diagnosis Lipid screening - Primary Screening for lipoid disorders Essential hypertension Unspecified essential hypertension documented in this encounter Care Teams Lang Interpreter Relationship Specialty Start Date End Date Froylan Louise MD PCP - General Family Practice 02/22/14 Froylan Louise MD Assigned PCP 03/13/14 2 documented as of this encounter
--- OUTSIDE RECORDS SUMMARY | 2022-05-15 22:53 | XMS_ITS | Encounter Summary ---
:1955 Author Organization [place] Address [address] [place] [address] Care Team Providers Name Role Phone Froylan Louise MD Primary Care Provider Unavailable Froylan Louise MD Unavailable Unavailable Reason for Visit Reason Onset Date Comments Dme 07/04/2020 compression stocking Encounter Details Date Type Department Care Team Description 07/04/2020 Telephone [facility] Froylan Louise Dme (compression Clinic [place] stocking ) [address] [place] [address] Social History Tobacco [...] you attend temple or Patient refused 2020 mosque services? Do [...] with No / Unsure 06/09/2020 3:26 PM PILATES INSTRUCTOR someone who was confirmed or suspected to have Coronavirus / COVID-19? documented as of this encounter Miscellaneous Notes Telephone Encounter - Froylan Louise MD - 07/04/2020 11:28 AM CST Signed. 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
--- OUTSIDE RECORDS SUMMARY | 2022-05-15 22:53 | XMS_ITS | Encounter Summary ---
:1955 Author Organization [place] Address [address] [place] [address] Care Team Providers Name Role Phone Froylan Louise MD Primary Care Provider Unavailable Froylan Louise MD Unavailable Unavailable Encounter Details Date Type Department Care Team Description 06/09/2020 Anticoagulation Therapy [facility] Audrey Louise Chronic deep vein thrombosis (DVT) of lower extremity, unspecified laterality, unspecified vein (H); Visit Clinic Chhaya Dubose MD long term current use of ant icoagulant therapy [address] [place] [address] Social History Tobacco Use Types [...] containing 4 or more times a w cher-ae heights 05/25/2021 alcohol? How many drinks containing alcohol [...] you attend taoist or Patient refused 2020 bahai services? Do [...] with No / Unsure 06/09/2020 3:26 PM E BUSINESS PROJECT MANAGER someone who was confirmed or suspected [...] number Froylan Louise MD Referring Family Medicine [phone] See the Encounter Report to view Anticoagulation Flowsheet and Dosing Calendar (Go to Encounters tabin chart review, and find the Anticoagulation Therapy Visit) Patient INR is therapeutic. Patient will continue to take 50 mg weekly dosing and follow up in 3 weeks or sooner for any problems or concerns. Stevo Thorne RN E BUSINESS PROJECT MANAGER documented in this encounter Plan of Treatment Upcoming Encounters Date Type Specialty Care Team Description 05/20/2022 Lab Lab documented as of this encounter Visit Diagnoses Diagnosis Chronic deep vein thrombosis (DVT) of lo wer extremity, unspecified laterality, unspecified vein (H) long term current use of anticoagulant t herapy documented in this encounter Care Teams Central Office Trouble Shooter Relationship Specialty Start Date End Date Froylan Louise MD PCP - General Family Practice 02/22/14 Froylan Louise MD Assigned PCP 03/13/14 2 documented as of this encounter
--- OUTSIDE RECORDS SUMMARY | 2022-05-15 22:53 | XMS_ITS | Encounter Summary ---
:1955 Author Organization [place] Address [address] [place] [address] Care Team Providers Name Role Phone Froylan Louise MD Primary Care Provider Unavailable Froylan Louise MD Unavailable Unavailable Encounter Details Date Type Department Care Team Description 07/18/2020 Orders Only [facility] Per killian history of DVT [facility] (deep vein thrombosis) [address] [place] [address] Social History Tobacco Use [...] you attend rastafari or Patient refused 2020 restorationism services? Do [...] with No / Unsure 07/18/2020 3:08 PM INFORMATION TECHNOLOGY INTERN someone who was confirmed or suspected to have Coronavirus / COVID-19? documented as of this encounter Plan of Treatment Upcoming Encounters Date Type Specialty Care Team Description 05/20/2022 Lab Lab documented as of this encounter Procedures Procedure Name Priority Date/Time Associated Diagnosis Comme nts INR Routine 07/18/2020 3:10 PM Personal history of Re sults for this INFORMATION TECHNOLOGY INTERN DVT (deep vein procedure are in the thrombosis) results section . documented in this encounter Results (ABNORMAL) INR (07/18/2020 3:10 PM INFORMATION TECHNOLOGY INTERN) athologist Signature INR 2.90 (H) 0.86 - 1.14 07/18/2020 [place] 3:48 PM [facility] Comment: This test is intended for monitoring Cou madin therapy. ??Results are not accurate in patients with prolonged INR due to factor deficiency. Specimen Anatomical Collection Method Collection Time Receive d Time (Source) Location / / Volume Laterality Blood specimen 07/18/2020 3:10 PM 021 3:12 (specimen) INFORMATION TECHNOLOGY INTERN PM INFORMATION TECHNOLOGY INTERN Froylan Louise MD LAB - BLOOD ORDERABLES Performing Organization Address City/State/ZIP Code Phon e Number [facility] [address] [place] [address] documented in this encounter Visit Diagnoses Diagnosis Personal history of DVT (deep vein throm bosis) Personal history of venous thrombosis an d embolism documented in this encounter Care Teams Robotics Systems Engineer Relationship Specialty Start Date End Date Froylan Louise MD PCP - General Family Practice 02/22/14 Froylan Louise MD Assigned PCP 03/13/14 2 documented as of this encounter
--- OUTSIDE RECORDS SUMMARY | 2022-05-15 22:53 | XMS_ITS | Encounter Summary ---
:1955 Author Organization [place] Address [facility] [place] [address] Care Team Providers Name Role Phone Froylan [...] Date Type Department Care Team Description [facility], [facility] ing to inform dr Love Shaver MD (Patient would like to [id number] [place] [address] Dani rodriguez [place], [place] went to the [facility] [phone] for his back) [phone] Social History Tobacco Use Types Packs/Day Years [...] you attend anabaptist or Patient refused 2020 yarsani services? Do you belong to any clubs or Yes 05/25/2021 organizations such as anabaptist groups, unions, fraSCP Events or athletic groups, or school groups? How [...] with No / Unsure 06/09/2020 3:26 PM PRISON TEACHER someone who was confirmed or suspected to have Coronavirus / COVID-19? documented as of this encounter Miscellaneous Notes Telephone Encounter - Esthela Corea RN - 06/30/2020 8:41 AM CST LM should schedule visit with PCP and have MRI report faxed to [phone] Esthela Corea RN ON TEACHER Telephone Encounter - Eidth Farmer - 06/29/2020 6:38 PM CST Reason for call: Other Patient called regarding (reason for call): call back Additional comments: Patient is calling to inform Dr. Louise that he went to the urgent care at [facility] in [place] and had an MRI done. Patient would like to discuss. Phone number to reach patient: Home number on file [phone] (home) Best Time: As soon as possible Can we leave a detailed message on this number? YES Travel screening: Not Applicable ON TEACHER documented in this encounter Plan of Treatment Upcoming Encounters Date Type Specialty Care Team Description 05/20/2022 Lab Lab documented as of this encounter Visit Diagnoses Not on filedocumented in this encounter Care Teams Contracts Analyst Relationship Specialty Start Date End Date Froylan Louise MD PCP - General Family Practice 02/22/14 So Dodd MD PCP - General Family Medicine 01/10/22 01/17/22 [address] [place] [address] Froylan Louise MD PCP - General Family Medicine 01/18/22 So Dodd MD PCP - General Family Medicine 02/21/22 [address] [address] [place], [place] [id number] Froylan Louise MD Assigned PCP 03/13/14 2 Esthela Corea, RN Personal Advocate & Liaison Family Medicine 10/16 (PAL) So Dodd MD Assigned PCP 01/05/22 [address] [place] [address] documented as of this encounter
--- OUTSIDE RECORDS SUMMARY | 2022-05-15 22:53 | XMS_ITS | Encounter Summary ---
:1955 Author Organization [place] Address [address] [place] [address] Care Team Providers Name Role Phone Froylan Louise MD Primary Care Provider Unavailable Froylan Louise MD Unavailable Unavailable Reason for Visit Reason Comments Medication Refill warfarin Encounter Details Date Type Department Care Team Description 04/24/2020 Refill [facility] Froylan Louise Ra, Medication Refill Chhyaa VILLASEÑOR (warfarin) [address] [place] [address] Social History Tobacco Use [...] attend jehovah's witness or Patient refused 2020 sikh services? Do [...] appt. Not yet scheduled Prescription approved per [facility] Refill Protocol. Jazzy Ramos RN R MAKER Telephone Encounter - Halina Ley RN - 04/24/2020 3:06 PM CST Routing to INR Halina Bustillos RN, BSN R MAKER documented in this encounter Plan of Treatment Upcoming Encounters Date Type Specialty Care Team Description 05/20/2022 Lab Lab documented as of this encounter Visit Diagnoses Diagnosis prison current use of anticoagulants with INR goal of 2.0-3.0 - Primary Acute deep vein thrombosis (DVT) of prox imal vein of both lower extremities (H) documented in this encounter Care Teams Shingle Weaver Relationship Specialty Start Date End Date Froylan Louise MD PCP - General Family Practice 02/22/14 Froylan Louise MD Assigned PCP 03/13/14 2 documented as of this encounter
--- OUTSIDE RECORDS SUMMARY | 2022-05-15 22:53 | XMS_ITS | Encounter Summary ---
:1955 Author Organization [place] Address [address] [place] [address] Care Team Providers Name Role Phone Froylan Louise MD Primary Care Provider Unavailable Froylan Louise MD Unavailable Unavailable Reason for Visit Reason Onset Date Comments Results 05/31/2020 needs results sent t o another physician Encounter Details Date Type Department Care Team Description 05/31/2020 Telephone [facility] Froylan Louise Resu lts (needs results Clinic Chhaya VILLASEÑOR sent to another [address] [place] [address] physician) [place] [address] Social History Tobacco Use Types [...] you attend gnosticism or Patient refused 2020 religion services? Do [...] with No / Unsure 05/26/2020 3:06 PM RETAIL PHARMACIST someone who was confirmed or suspected to have Coronavirus / COVID-19? documented as of this encounter Miscellaneous Notes Telephone Encounter - Carolin Dawson - 05/31/2020 2:08 PM CST Called patient he is at Dr. Shelton office at [facility] requesting for lab results to be faxed to [phone]. Since we placed a referral I faxed the results. Carolin Dawson Saturator [place] PHARMACIST Telephone Encounter - Sofia Rojas - 05/31/2020 1:59 PM CST Test Results Who is calling?: Virgil Who ordered the test: Dani Type of test: Lab Date of test: 05/26/20 Where was the test performed: [facility] What are your questions/concerns?: Pt would like them sent to another physician, please call pt for information Okay to leave a detailed message?: Yes [place] PHARMACIST documented in this encounter Plan of Treatment Upcoming Encounters Date Type Specialty Care Team Description 05/20/2022 Lab Lab documented as of this encounter Visit Diagnoses Not on filedocumented in this encounter Care Teams Egg Pasteurizer Relationship Specialty Start Date End Date Froylan Louise MD PCP - General Family Practice 02/22/14 Froylan Louise MD Assigned PCP 03/13/14 2 documented as of this encounter
--- OUTSIDE RECORDS SUMMARY | 2022-05-15 22:53 | XMS_ITS | Encounter Summary ---
:1955 Author Organization [place] Address [address] [place] [address] Care Team Providers Name Role Phone Froylan Louise MD Primary Care Provider Unavailable Froylan Louise MD Unavailable Unavailable Encounter Details Date Type Department Care Team Description 04/03/2020 Anticoagulation Therapy [facility], Chronic deep vein thrombosis (DVT) of lower extremity, unspecified laterality, unspecified vein (H); Visit Clinic Jonah Conrad RN prison current use of ant icoagulant therapy [id number] [place] [address] Social History Tobacco Use Types Packs/Day [...] you attend mu-ism or Patient refused 2020 hinduism services? Do [...] location: Preferred lab: Send INR reminders to: [facility] Comments: Anticoagulation Care Providers Provider Role Specialty Phone number Froylan Louise MD Referring Family Practice [phone] See the Encounter Report to view Anticoagulation [...] extremity, unspecified laterality, unspecified vein (H) terminal worker current use of anticoagulant t herapy documented in this encounter Care Teams Wood Model Builder Relationship Specialty Start Date End Date Froylan Louise MD PCP - General Family Practice 02/22/14 Froylan Louise MD Assigned PCP 03/13/14 2 documented as of this encounter
--- OUTSIDE RECORDS SUMMARY | 2022-05-15 22:53 | XMS_ITS | Encounter Summary ---
:1955 Author Organization [place] Address Pending sale to [facility] [place] [address] Care Team Providers Name Role Phone Froylan Louise MD Primary Care Provider Unavailable Froylan Louise MD Unavailable Unavailable Reason for Visit Diagnostic Imaging XR (Routine) - Closed Specialty Diagnoses / Procedures Referred By Contact Refer red To Contact Diagnoses Irregular heartbeat Froylan Louise MD Procedures XR Chest [id number] [place] [address] Referral ID Status Reason Start Date Expiration Date Visits Requ ested Visits Authorized [id number] Closed 05/26/2020 05/26/2021 1 1 Encounter Details Date Type Department Care Team Description 05/26/2020 Ancillary Procedure [facility] Froylan Louise Ra, [facility] [address] [place] [address] Social History Tobacco Use Types [...] you attend jain or Patient refused 2020 congregation services? Do [...] with No / Unsure 05/26/2020 3:06 PM STUDIO ENGINEER someone who was confirmed or suspected to have Coronavirus / COVID-19? documented as of this encounter Plan of Treatment Upcoming Encounters Date Type Specialty Care Team Description 05/20/2022 Lab Lab documented as of this encounter Procedures Procedure Name Priority Date/Time Associated Diagnosis Comme nts XR CHEST 2 VIEWS Routine 05/26/2020 4:02 PM Irregular heartbea t Results for this STUDIO ENGINEER procedure are i n the results section. documented in this encounter Results XR Chest 2 Views (05/26/2020 4:02 PM STUDIO ENGINEER) Anatomical Region Laterality Modality Chest Computed Radiography Specimen (Source) Anatomical Location Collection Method / Collectio n Time Received Time / Laterality Volume Impressions 05/26/2020 4:44 PM STUDIO ENGINEER IMPRESSION: No radiographic evidence of acute chest abnormality. ANDREAS COLEMAN MD Narrative 05/26/2020 4:44 PM STUDIO ENGINEER CHEST TWO VIEWS 05/26/2020 4:02 PM HISTORY: [...] on filedocumented in this encounter Care Teams President & Ceo [employer] Relationship Specialty Start Date End Date Froylan Louise MD PCP - General Family Practice 02/22/14 Froylan Louise MD Assigned PCP 03/13/14 2 documented as of this encounter
--- OUTSIDE RECORDS SUMMARY | 2022-05-15 22:53 | XMS_ITS | Encounter Summary ---
:1955 Author Organization [place] Address [address] [place] [address] Care Team Providers Name Role Phone Froylan Louise MD Primary Care Provider Unavailable Froylan Louise MD Unavailable Unavailable Reason for Visit Reason Onset Date Comments Anticoagulation 07/03/2020 upcoming injection Encounter Details Date Type Department Care Team Description 07/03/2020 Telephone [facility] Froylan Louise Anticotenzinu lation (upcoming Clinic Chhaya Dubose MD injection) [address] [place] [address] Social History Tobacco [...] you attend sikhism or Patient refused 2020 mandaen services? Do [...] with No / Unsure 06/09/2020 3:26 PM SIDE GUIDER someone who was confirmed or suspected to [...] in the morning. Recheck INR at the [facility] for further dosing instructions. INR must be 2.3 or greater to stop Lovenox injections. If you have any questions please call the Anticoagulation Clinic at [phone]. GUIDER documented in this encounter Miscellaneous Notes Telephone Encounter - Stevo Thorne RN - 07/07/2020 4:36 PM SIDE GUIDER I left a message for patient asking if he had any questions concerns before beginning loevnox tomorrow and left [employer] number for him to return call. Transfer to [phone]. Rosmery Thorne RN [facility] [place] GUIDER Telephone Encounter - Froylan Louise MD - [...] sure he is following plan as detailed. GUIDER Telephone Encounter - Diana Nielsen RN - 07/05/2020 10:44 AM CST Patient had called earlier this morning to [facility] RN with questions about risks/benefits of taking Lovenox, specifically what he read in literature about increased risk of spinal bleeding. [facility] RN advised he discuss with Dr. Louise before making final decision. Routing to provider for further advice. Diana Mukherjee RN Anticoagulation Team GUIDER Telephone Encounter - Carolin Dawson - 07/05/2020 10:17 AM CST Patient called the clinic requesting to speak to the nurse regarding the Lovenox, he states he doesn't think he is going to do it. Please call patient back at [phone]. Carolin Daswon Night Order Selector GUIDER Telephone Encounter - Wendi Lindsay RN - 07/04/2020 12:04 PM CST Print screened the pt instructions Brought to the front desk administrator Wendi Lindsay RN, BSN GUIDER Telephone Encounter - Diana Nielsen RN - 07/04/2020 11:29 AM CST Called patient. He state his procedure has been moved from 07/10/20 to 07/11/20. He agreed to the Lovenox bridging. Prescription sent to preferred pharmacy. Reviewed warfarin hold, lovenox bridge and warfarin restart instructions with patient over the phone. Patient also wants written instructions printed and walked to front of [facility]. 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 Diana Mukherjee RN Anticoagulation Team GUIDER Telephone Encounter - Antonieta Randhawa RPH - 07/04/2020 10:50 AM SIDE GUIDER Patient has started sulfasalazine 05/31/2020, would expect [...] Antonieta Randhawa PharmD BCACP Anticoagulation Clinical Pharmacist GUIDER Telephone Encounter - Froylan Louise MD - [...] think holding is ok in his case. GUIDER Telephone Encounter - Antonieta Randhawa [facility] - 07/03/2020 5:41 PM SIDE GUIDER Chart reviewed, patient has HX anticardiolipin antibodies [...] when it was last prescribed. Karie WuD [facility] Anticoagulation Clinical Pharmacist GUIDER Telephone Encounter - Diana Nielsen RN - 07/03/2020 5:26 PM CST Noted on anticoag calendar. Patient has INR already scheduled for 4 days after procedure. Routing to Anticoag Pharm D for review. Diana Mukherjee RN Anticoagulation Team GUIDER Telephone Encounter - Esthela Corea RN - 07/03/2020 1:30 PM CST Pt notified can hold warfarin for 5 days before 07/10 injection at [facility] Will notified anticoag team Esthela Corea RN GUIDER Telephone Encounter - Froyaln Louise MD - 07/03/2020 12:09 PM CST Warfarin (not Metformin) is what this question is about. Yes, he can hold Warfarin for 5 days prior to procedure. GUIDER Telephone Encounter - Esthela Calles, RN - 07/03/2020 9:[address] Louise please see below message regarding Metformin and advise. Thank you, Esthela Calles R.N. GUIDER Telephone Encounter - Tre Dwyer - 07/03/2020 9:04 AM CST Reason for Call: Patient is having an upcoming injection with [facility] on 07/07/2020. Itzel from [employer] is calling to ask Dani if he can safely hold pt's metformin for five days prior to this injection. Itzel would like a call at [phone] to confirm (any nurse is fine to take the call) Detailed comments: Please update pt as well to confirm holding the metformin before this injection Phone Number Patient can be reached at: [phone] Best Time: any Can we leave a detailed message on this number? YES Call taken on 07/03/2020 at 9:04 AM by Tre Dwyer GUIDER documented in this encounter Plan of Treatment Upcoming Encounters Date Type Specialty Care Team Description 05/20/2022 Lab Lab documented as of this encounter Visit Diagnoses Diagnosis jail current use of anticoagulant t herapy - Primary Chronic deep vein thrombosis (DVT) of lo wer extremity, unspecified laterality, unspecified vein (H) documented in this encounter Care Teams Lead Teacher Relationship Specialty Start Date End Date Froylan Louise MD PCP - General Family Practice 02/22/14 Froylan Louise MD Assigned PCP 03/13/14 2 documented as of this encounter
--- OUTSIDE RECORDS SUMMARY | 2022-05-15 22:53 | XMS_ITS | Encounter Summary ---
:1955 Author Organization [place] Address [address] [place] [address] Care Team Providers Name Role Phone Froylan Louise MD Primary Care Provider Unavailable Froylan Louise MD Unavailable Unavailable Encounter Details Date Type Department Care Team Description 05/26/2020 Orders Only [facility] Per killian history of DVT [facility] (deep vein thrombosis) [address] [place] [address] Social History Tobacco Use [...] you attend amish or Patient refused 2020 episcopalian services? Do [...] with No / Unsure 05/26/2020 3:06 PM HUMAN SERVICES PROFESSIONAL someone who was confirmed or suspected to have Coronavirus / COVID-19? documented as of this encounter Plan of Treatment Upcoming Encounters Date Type Specialty Care Team Description 05/20/2022 Lab Lab documented as of this encounter Procedures Procedure Name Priority Date/Time Associated Comments Diagnosis CAPILLARY BLOOD Routine 05/26/2020 4:50 PM Personal history of Results for this COLLECTION HUMAN SERVICES PROFESSIONAL DVT (deep vein procedure are in thrombosis) the results section. INR Routine 05/26/2020 4:50 PM Personal history of Re sults for this HUMAN SERVICES PROFESSIONAL DVT (deep vein procedure are in thrombosis) the results section. documented in this encounter Results Capillary Blood Collection (05/26/2020 4:50 PM HUMAN SERVICES PROFESSIONAL) Patholo gist Method Time Signature Capillary Capillary 05/26/2020 [place] Blood collection 4:51 PM HUMAN SERVICES PROFESSIONAL CLINICS Collection performed [place] Specimen Anatomical Collection Method Collection Time Receive d Time (Source) Location / / Volume Laterality 05/26/2020 4:50 PM 0 4:51 HUMAN SERVICES PROFESSIONAL PM HUMAN SERVICES PROFESSIONAL Froylan Louise MD LAB - LAB COMMUNICATION Performing Organization Address City/[facility]/ZIP Code Phon e Number [facility] [id number] [place] [address] (ABNORMAL) INR (05/26/2020 4:50 PM HUMAN SERVICES PROFESSIONAL) P athologist Signature INR 3.50 (H) 0.86 - 1.14 05/26/2020 [place] 5:05 PM HUMAN SERVICES PROFESSIONAL [facility] Comment: This test is intended for monitoring Cou madin therapy. ??Results are not accurate in patients with prolonged INR due to factor deficiency. Specimen Anatomical Collection Method Collection Time Receive d Time (Source) Location / / Volume Laterality Blood specimen 05/26/2020 4:50 PM 020 4:51 (specimen) HUMAN SERVICES PROFESSIONAL PM HUMAN SERVICES PROFESSIONAL Froylan Louise MD LAB - BLOOD ORDERABLES Performing Organization Address City/[facility]/ZIP Code Phon e Number [facility] [id number] [place] [address] documented in this encounter Visit Diagnoses Diagnosis Personal history of DVT (deep vein throm bosis) Personal history of venous thrombosis an d embolism documented in this encounter Care Teams Coke Crane Operator Relationship Specialty Start Date End Date Froylan Louise MD PCP - General Family Practice 02/22/14 Froylan Louise MD Assigned PCP 03/13/14 2 documented as of this encounter
--- OUTSIDE RECORDS SUMMARY | 2022-05-15 22:53 | XMS_ITS | Encounter Summary ---
:1955 Author Organization [place] Address [address] [place] [address] Care Team Providers Name Role Phone Froylan Louise MD Primary Care Provider Unavailable Froylan Louise MD Unavailable Unavailable Reason for Visit Reason Comments Medication Refill Encounter Details Date Type Department Care Team Description 07/12/2020 Refill [facility] [place], Medication Refill [place] Isabel Monte PA-C [address] [place] [phone] [place] [address] (Wo rk) Social History Tobacco [...] you attend scientologist or Patient refused 2020 druze services? Do [...] [facility] refill protocol Wendi Lindsay RN, BSN IAC CARE NURSE documented in this encounter Plan of Treatment Upcoming Encounters Date Type Specialty Care Team Description 05/20/2022 Lab Lab documented as of this encounter Visit Diagnoses Diagnosis Insomnia, unspecified type documented in this encounter Care Teams Reporter Relationship Specialty Start Date End Date Froylan Louise MD PCP - General Family Practice 02/22/14 Froylan Louise MD Assigned PCP 03/13/14 2 documented as of this encounter
--- OUTSIDE RECORDS SUMMARY | 2022-05-15 22:53 | XMS_ITS | Encounter Summary ---
:1955 Author Organization [place] Address [address] [place] [address] Care Team Providers Name Role Phone Froylan Louise MD Primary Care Provider Unavailable Froylan Louise MD Unavailable Unavailable Reason for Visit Reason Comments Allied Health Visit bp check Encounter Details Date Type Department Care Team Description 06/09/2020 Allied Health/Nurse Health [place] All ied Health Visit (bp Visit Clinic [place] check) [address] [place] [address] Social History Tobacco Use Types [...] you attend catholic or Patient refused 2020 holiness services? Do [...] with No / Unsure 06/09/2020 3:26 PM OPTICAL LABORATORY MANAGER someone who was confirmed or suspected to have Coronavirus / COVID-19? documented as of this encounter Last Filed Vital Signs Vital Sign Reading Time Taken Comments Blood Pressure 144/92 06/09/2020 3:40 PM OPTICAL LABORATORY MANAGER Pulse 74 06/09/2020 3:40 PM OPTICAL LABORATORY MANAGER Temperature - - Respiratory Rate - - [...] takes medication as prescribed Marco Pak CMA CAL LABORATORY MANAGER documented in this encounter Plan of Treatment Upcoming Encounters Date Type Specialty Care Team Description 05/20/2022 Lab Lab documented as of this encounter Visit Diagnoses Diagnosis BP check - Primary Screening for hypertension documented in this encounter Care Teams Triage Registered Nurse Relationship Specialty Start Date End Date Froylan Louise MD PCP - General Family Practice 02/22/14 Froylan Louise MD Assigned PCP 03/13/14 2 documented as of this encounter
--- OUTSIDE RECORDS SUMMARY | 2022-05-15 22:53 | XMS_ITS | Encounter Summary ---
:1955 Author Organization [place] Address [address] [place] [address] Care Team Providers Name Role Phone Froylan Louise MD Primary Care Provider Unavailable Froylan Louise MD Unavailable Unavailable Reason for Visit Reason Onset Date Comments Results 05/29/2020 Encounter Details Date Type Department Care Team Description 05/29/2020 Telephone [facility] Froylan Louise Ra, MD Results [address] [address] Social History Tobacco Use [...] you attend gnosticist or Patient refused 2020 restoration services? Do [...] with No / Unsure 05/26/2020 3:06 PM GAS METER REPAIRER someone who was confirmed or suspected [...] everything looks good. Call or send a Austral 3D message if you have any questions. Froylan Louise MD [facility] METER REPAIRER documented in this encounter Plan of Treatment Upcoming Encounters Date Type Specialty Care Team Description 05/20/2022 Lab Lab documented as of this encounter Visit Diagnoses Not on filedocumented in this encounter Care Teams Instrumentation Controls Engineer Relationship Specialty Start Date End Date Froylan Louise MD PCP - General Family Practice 02/22/14 Froylan Louise MD Assigned PCP 03/13/14 2 documented as of this encounter
--- OUTSIDE RECORDS SUMMARY | 2022-05-15 22:53 | XMS_ITS | Encounter Summary ---
:1955 Author Organization [place] Address [address] [place] [address] Care Team Providers Name Role Phone Froylan [...] you attend baptist or Patient refused 2020 mandaeism services? Do [...] with No / Unsure 05/26/2020 3:06 PM ENGINE DYNAMOMETER TESTER someone who was confirmed or suspected to have Coronavirus / COVID-19? documented as of this encounter Plan of Treatment Upcoming Encounters Date Type Specialty Care Team Description 05/20/2022 Lab Lab documented as of this encounter Visit Diagnoses Not on filedocumented in this encounter Care Teams Production Support Developer Relationship Specialty Start Date End Date Froylan Louise MD PCP - General Family Practice 02/22/14 Froylan Louise MD Assigned PCP 03/13/14 2 documented as of this encounter
--- OUTSIDE RECORDS SUMMARY | 2022-05-15 22:53 | XMS_ITS | Encounter Summary ---
:1955 Author Organization [place] Address [address] [place] [address] Care Team Providers Name Role Phone Froylan Louise MD Primary Care Provider Unavailable Froylan Louise MD Unavailable Unavailable Reason for Visit Reason Comments Allied Health Visit Encounter Details Date Type Department Care Team Description 07/18/2020 Allied Health/Nurse Health [facility] Allied Health Visit Visit [address] [address] Social History Tobacco Use [...] you attend yazdanism or Patient refused 2020 jew services? Do [...] with No / Unsure 07/18/2020 3:08 PM CASING COOKER someone who was confirmed or suspected to have Coronavirus / COVID-19? documented as of this encounter Last Filed Vital Signs Vital Sign Reading Time Taken Comments Blood Pressure 136/88 07/18/2020 4:35 PM CASING COOKER Pulse 98 07/18/2020 4:35 PM CASING COOKER Temperature - - Respiratory Rate - - [...] 136/74 05/05/19 130/80 01/09/19 134/78 KENYATTA Villaseñor NG COOKER documented in this encounter Plan of Treatment Upcoming Encounters Date Type Specialty Care Team Description 05/20/2022 Lab Lab documented as of this encounter Visit Diagnoses Diagnosis BP check - Primary Screening for hypertension documented in this encounter Care Teams Aoc Airspace Control Officer Relationship Specialty Start Date End Date Froylan Louise MD PCP - General Family Practice 02/22/14 Froylan Louise MD Assigned PCP 03/13/14 2 documented as of this encounter
--- OUTSIDE RECORDS SUMMARY | 2022-05-15 22:53 | XMS_ITS | Encounter Summary ---
:1955 Author Organization [place] Address [address] [place] [address] Care Team Providers Name Role Phone Froylan Louise MD Primary Care Provider Unavailable Froylan Louise MD Unavailable Unavailable Reason for Visit Reason Comments Medication Refill Encounter Details Date Type Department Care Team Description 06/12/[address] [facility] Froylan Louise Ra, MD Medication Refill [address] [address] Social History Tobacco Use [...] you attend spiritism or Patient refused 2020 hinduism services? Do [...] with No / Unsure 06/09/2020 3:26 PM HEAVY EQUIPMENT OPERATOR/PAVER someone who was confirmed or suspected to have Coronavirus / COVID-19? documented as of this encounter Miscellaneous Notes Telephone Encounter - Wendi Lindsay RN - 06/12/2020 2:54 PM CST The original prescription was discontinued on 05/26/2020 by Froylan Louise MD. Y EQUIPMENT OPERATOR/PAVER documented in this encounter Plan of Treatment Upcoming Encounters Date Type Specialty Care Team Description 05/20/2022 Lab Lab documented as of this encounter Visit Diagnoses Diagnosis Mild persistent asthma without complicat ion Unspecified asthma documented in this encounter Care Teams Capacity Analyst Relationship Specialty Start Date End Date Froylan Louise MD PCP - General Family Practice 02/22/14 Froylan Louise MD Assigned PCP 03/13/14 2 documented as of this encounter
--- OUTSIDE RECORDS SUMMARY | 2022-05-15 22:53 | XMS_ITS | Encounter Summary ---
:1955 Author Organization [facility] Address [address] [place] [address] Care Team Providers Name Role Phone Froylan Louise MD Primary Care Provider Unavailable Froylan Louise MD Unavailable Unavailable Encounter Details Date Type Department Care Team Description 06/09/2020 Orders Only [facility] Per killian history of DVT [facility] (deep vein thrombosis) [address] [place] [address] Social History [...] with No / Unsure 06/09/2020 3:26 PM MACHINE PULLER OVER someone who was confirmed or suspected to have Coronavirus / COVID-19? documented as of this encounter Plan of Treatment Upcoming Encounters Date Type Specialty Care Team Description 05/20/2022 Lab Lab documented as of this encounter Procedures Procedure Name Priority Date/Time Associated Diagnosis Comme nts INR Routine 06/09/2020 3:21 PM Personal history of Re sults for this MACHINE PULLER OVER DVT (deep vein procedure are in the thrombosis) results section . documented in this encounter Results (ABNORMAL) INR (06/09/2020 3:21 PM MACHINE PULLER OVER) athologist Signature INR 2.30 (H) 0.86 - 1.14 06/09/2020 [place] 3:[address] [facility] Comment: This test is intended for monitoring Cou madin therapy. ??Results are not accurate in patients with prolonged INR due to factor deficiency. Specimen Anatomical Collection Method Collection Time Receive d Time (Source) Location / / Volume Laterality Blood specimen 06/09/2020 3:21 PM 020 3:26 (specimen) MACHINE PULLER OVER PM MACHINE PULLER OVER Froylan Louise MD LAB - BLOOD ORDERABLES Performing Organization Address City/State/ZIP Code Phon e Number [facility] [address] [place] [address] documented in this encounter Visit Diagnoses Diagnosis Personal history of DVT (deep vein throm bosis) Personal history of venous thrombosis an d embolism documented in this encounter Care Teams Rolling Machine Tender Relationship Specialty Start Date End Date Froylan Louise MD PCP - General Family Practice 02/22/14 Froylan Louise MD Assigned PCP 03/13/14 2 documented as of this encounter
--- OUTSIDE RECORDS SUMMARY | 2022-05-15 22:53 | XMS_ITS | Encounter Summary ---
:1955 Author Organization [facility] Address [address] [place] [address] Care Team Providers Name Role Phone Froylan Louise MD Primary Care Provider Unavailable Froylan Louise MD Unavailable Unavailable Reason for Visit Reason Comments Medication Refill Encounter Details Date Type Department Care Team Description 06/13/2020 Refill [facility] Froylan Louise Ra, MD Medication Refill [address] [address] Social History Tobacco [...] you attend christianity or Patient refused 2020 pentecostalism services? Do [...] with No / Unsure 06/09/2020 3:26 PM DIP UNIT OPERATOR someone who was confirmed or suspected to have Coronavirus / COVID-19? documented as of this encounter Miscellaneous Notes Telephone Encounter - Wendi Lindsay RN - 06/13/2020 10:29 AM CST Routing refill request to provider for review/approval because: Drug not on the [facility] refill protocol Wendi Lindsay RN, BSN UNIT OPERATOR documented in this encounter Plan of Treatment Upcoming Encounters Date Type Specialty Care Team Description 05/20/2022 Lab Lab documented as of this encounter Visit Diagnoses Diagnosis H/O ulcerative colitis Personal history of other diseases of di gestive system documented in this encounter Care Teams Construction Trades Contractor Relationship Specialty Start Date End Date Froylan Louise MD PCP - General Family Practice 02/22/14 Froylan Louise MD Assigned PCP 03/13/14 2 documented as of this encounter
--- OUTSIDE RECORDS SUMMARY | 2022-05-15 22:53 | XMS_ITS | Encounter Summary ---
:1955 Author Organization [facility] Address [address] [place] [address] Care Team Providers Name Role Phone Froylan Louise MD Primary Care Provider Unavailable Froylan Louise MD Unavailable Unavailable Reason for Visit Reason Onset Date Comments Pt. Information/instruction 05/31/2020 Encounter Details Date Type Department Care Team Description 05/31/2020 Telephone [facility] Froylan Louise, Pt. Clinic Chhaya VILLASEÑOR Information/instruction [address] [facility] () [place] [address] Social History Tobacco Use Types [...] containing 4 or more times a w makah 05/25/2021 alcohol? How many drinks containing alcohol [...] attend latter day or Patient refused 2020 mormon services? Do [...] with No / Unsure 05/26/2020 3:06 PM INSEAMER someone who was confirmed or suspected to have Coronavirus / COVID-19? documented as of this encounter Miscellaneous Notes Telephone Encounter - Yudith Mejia RN - 05/31/2020 2:32 PM CST Pt calls, told to call PCP with BP reading today at Dr Shelton's office, improved, 140/80, only wants FYI sent Yudith Mejia RN, BSN Message handled by CLINIC NURSE. AMER documented in this encounter Plan of Treatment Upcoming Encounters Date Type Specialty Care Team Description 05/20/2022 Lab Lab documented as of this encounter Visit Diagnoses Not on filedocumented in this encounter Care Teams Safety Fire Boss Relationship Specialty Start Date End Date Froylan Louise MD PCP - General Family Practice 02/22/14 Froylan Louise MD Assigned PCP 03/13/14 2 documented as of this encounter
--- OUTSIDE RECORDS SUMMARY | 2022-05-15 22:53 | XMS_ITS | Encounter Summary ---
:1955 Author Organization [facility] Address [address] [place] [address] Care Team Providers Name Role Phone Froylan Louise MD Primary Care Provider Unavailable Froylan Louise MD Unavailable Unavailable Reason for Visit Reason Onset Date Comments Orders 07/05/2020 Compression Giulia s Encounter Details Date Type Department Care Team Description 07/05/2020 Telephone [facility] Froylan Louise Orde rs (Compression Clinic [place] MD [place]) [address] [place] [address] Social History Tobacco Use Types [...] you attend yarsani or Patient refused 2020 hinduism services? Do [...] with No / Unsure 06/09/2020 3:26 PM EMERGENCY ROOM PHYSICIAN someone who was confirmed or suspected to have Coronavirus / COVID-19? documented as of this encounter Miscellaneous Notes Telephone Encounter - Carolin Dawson - 07/06/2020 10:06 AM CST Order was faxed to [phone] attn Jazzy Dawson Logistics Engineer GENCY ROOM PHYSICIAN Telephone Encounter - Wendi Lindsay RN - 07/05/2020 1:39 PM CST refaxed Wendi Lindsay RN, BSN GENCY ROOM PHYSICIAN Telephone Encounter - Chris Hernandez - 07/05/2020 1:35 PM CST Reason for Call: Request for an order or referral: Needs to be faxed Order or referral being requested: DME Compressions Stockings Date needed: as soon as possible Has the patient been seen by the PCP for this problem? YES Additional comments: Patient was informed this morning by [facility] that they did not receive any compression stocking orders from provider. Please fax order to [facility] ATTENTION: Jazzy Hein per patient request Phone number Patient can be reached at: Home number on file [phone] (home) Best Time: Any Can we leave a detailed message on this number? Not Applicable Call taken on 07/05/2020 at 1:35 PM by Chris Hernandez GENCY ROOM PHYSICIAN documented in this encounter Plan of Treatment Upcoming Encounters Date Type Specialty Care Team Description 05/20/2022 Lab Lab documented as of this encounter Visit Diagnoses Not on filedocumented in this encounter Care Teams Motor Driver Relationship Specialty Start Date End Date Froylan Louise MD PCP - General Family Practice 02/22/14 Froylan Louise MD Assigned PCP 03/13/14 2 documented as of this encounter
--- OUTSIDE RECORDS SUMMARY | 2022-05-15 22:53 | XMS_ITS | Encounter Summary ---
:1955 Author Organization [facility] Address [address] [place] [address] Care Team Providers Name Role Phone Froylan Louise MD Primary Care Provider Unavailable Froylan Louise MD Unavailable Unavailable Reason for Visit Reason Onset Date Comments Refill Request 07/04/2020 Fluticasone-Umeclidi n-Vilanterol ([facility] ELLIPTA) 100-62.5-25 MCG/INH oral inhaler Encounter Details Date Type Department Care Team Description 07/04/2020 Refill [facility] Froylan Louise Ra y, Refill Request Chhaya VILLASEÑOR (Lnivshblohi-Jdyzmenof-V [address] [facility] ilanterol ([facility] [place] [address] ELLIPTA) 100-62.5-25 MCG/INH oral in haler) Social [...] you attend scientologist or Patient refused 2020 episcopalian services? Do [...] with No / Unsure 06/09/2020 3:26 PM SENIOR BUSINESS MANAGER someone who was confirmed or suspected to have Coronavirus / COVID-19? documented as of this encounter Miscellaneous Notes Telephone Encounter - Wendi Lindsay RN - 07/04/2020 1:00 PM CST Should have refills on file E-Prescribing Status: Receipt confirmed by pharmacy (05/26/2020 ??4:23 PM SENIOR BUSINESS MANAGER) OR BUSINESS MANAGER Telephone Encounter - Cheryl Garrett - 07/04/2020 10:15 AM CST Last Written Prescription Date: 05/26/20 Last Fill Quantity: 1, # refills: 11 Last office visit: 05/26/2020 with prescribing provider: Dr Louise Future Office Visit: Next 5 appointments (look out 90 days) Jul 13, 2020 4:00 PM (Arrive by 3:55 PM) [place] Visit with [facility] [id number] [place] [phone] OR BUSINESS MANAGER documented in this encounter Plan of Treatment Upcoming Encounters Date Type Specialty Care Team Description 05/20/2022 Lab Lab documented as of this encounter Visit Diagnoses Diagnosis Moderate persistent asthma without compl ication Unspecified asthma documented in this encounter Care Teams Elevator Dispatcher Relationship Specialty Start Date End Date Froylan Louise MD PCP - General Family Practice 02/22/14 Froylan Louise MD Assigned PCP 03/13/14 2 documented as of this encounter
--- OUTSIDE RECORDS SUMMARY | 2022-05-15 22:53 | XMS_ITS | Encounter Summary ---
:1955 Author Organization [facility] Address [address] [place] [address] Care Team Providers Name Role Phone Froylan [...] you attend voodoo or Patient refused 2020 mormon services? Do [...] with No / Unsure 06/09/2020 3:26 PM APPLICATION COORDINATOR someone who was confirmed or suspected to have Coronavirus / COVID-19? documented as of this encounter Plan of Treatment Upcoming Encounters Date Type Specialty Care Team Description 05/20/2022 Lab Lab documented as of this encounter Visit Diagnoses Not on filedocumented in this encounter Care Teams Front End Alignment Specialist Relationship Specialty Start Date End Date Froylan Louise MD PCP - General Family Practice 02/22/14 Froylan Louise MD Assigned PCP 03/13/14 2 documented as of this encounter
--- OUTSIDE RECORDS SUMMARY | 2022-05-15 22:53 | XMS_ITS | Encounter Summary ---
:1955 Author Organization [facility] Address [address] [place] [address] Care Team Providers Name Role Phone Froylan Louise MD Primary Care Provider Unavailable Froylan Louise MD Unavailable Unavailable Encounter Details Date Type Department Care Team Description 05/26/2020 Anticoagulation Therapy [facility] Audrey Louise Chronic deep vein thrombosis (DVT) of lower extremity, unspecified laterality, unspecified vein (H); Visit Clinic Chhaya Dubose MD terminal supervisor current use of ant icoagulant therapy [address] [place] [address] Social History Tobacco Use Types [...] containing 4 or more times a w lummi 05/25/2021 alcohol? How many drinks containing alcohol [...] you attend restorationist or Patient refused 2020 orthodoxy services? Do [...] with No / Unsure 05/26/2020 3:06 PM LIQUOR DEPARTMENT MANAGER someone who was confirmed or suspected [...] number Froylan Louise MD Referring Family Medicine [phone] See the Encounter Report to view Anticoagulation [...] physician directed care plan. Stevo Thorne RN OR DEPARTMENT MANAGER documented in this encounter Plan of Treatment Upcoming Encounters Date Type Specialty Care Team Description 05/20/2022 Lab Lab documented as of this encounter Visit Diagnoses Diagnosis Chronic deep vein thrombosis (DVT) of lo wer extremity, unspecified laterality, unspecified vein (H) terminal supervisor current use of anticoagulant t herapy documented in this encounter Care Teams Nurse Behavioral Health Care Relationship Specialty Start Date End Date Froylan Louise MD PCP - General Family Practice 02/22/14 Froylan Louise MD Assigned PCP 03/13/14 2 documented as of this encounter
--- OUTSIDE RECORDS SUMMARY | 2022-05-15 22:53 | XMS_ITS | Encounter Summary ---
:1955 Author Organization [facility] Address [address] [place] [address] Care Team Providers Name Role Phone Froylan [...] you attend taoist or Patient refused 2020 pentecostal services? Do [...] on filedocumented in this encounter Care Teams Storm Sash Maker Relationship Specialty Start Date End Date Froylan Louise MD PCP - General Family Practice 02/22/14 Froylan Louise MD Assigned PCP 03/13/14 2 documented as of this encounter
--- OUTSIDE RECORDS SUMMARY | 2022-05-15 22:53 | XMS_ITS | Encounter Summary ---
:1955 Author Organization [facility] Address [address] [place] [address]. [place] [address] Care Team Providers Name Role Phone Froylan Louise MD Primary Care Provider Unavailable Froylan Louise MD Unavailable Unavailable Reason for Referral (Routine) - Closed Specialty Diagnoses / Procedures Referred By Contact Refer red To Contact Procedures Froylan Louise MD PPSV23, IM/SUBQ (2+ YRS) - [id number] [place] [address] Referral ID Status Reason Start Date Expiration Date Visits Requ ested Visits Authorized [id number] Closed 05/26/2020 05/26/2021 1 1 LE SPECIALIST Diagnostic Imaging XR (Routine) - Closed Specialty Diagnoses / Procedures Referred By Contact Refer red To Contact Diagnoses Irregular heartbeat Froylan Louise MD Procedures XR Chest [address] [place] [address] Referral ID Status Reason Start Date Expiration Date Visits Requ ested Visits Authorized [id number] Closed 05/26/2020 05/26/2021 1 1 LE SPECIALIST Consultation (Routine) - Closed Specialty Diagnoses / Procedures Referred By Contact Refer red To Contact Diagnoses Irregular heartbeat Froylan Louise MD [facility] [address] [place] [address] [place] [address] Phone: Referral ID Status Reason Start Date Expiration Date Visits Requ ested Visits Authorized [id number] Closed 05/26/2020 05/26/2021 1 1 LE SPECIALIST Reason for Visit Reason Comments Physical Encounter Details Date Type Department Care Team Description 05/26/2020 Office Visit [facility] Froylan Louise g eneral medical examination at a health care facility (Primary Dx); Clinic Chhaya Dubose MD Irregular heartbeat; [address] 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 Do [...] with No / Unsure 05/26/2020 3:06 PM ORACLE SPECIALIST someone who was confirmed or suspected to have Coronavirus / COVID-19? documented as of this encounter Last Filed Vital Signs Vital Sign Reading Time Taken Comments Blood Pressure 152/83 05/26/2020 3:29 PM ORACLE SPECIALIST Pulse 101 05/26/2020 3:29 PM ORACLE SPECIALIST Temperature 36.4 ??C (97.6 ??F) 05/26/2020 3:29 PM ORACLE SPECIALIST Respiratory Rate - - Oxygen Saturation 97% 05/26/2020 3:29 PM ORACLE SPECIALIST Inhaled Oxygen Concentration - - Weight 108 kg (238 lb) 05/26/2020 3:29 PM ORACLE SPECIALIST Height 179.1 cm (5' 10.5) 05/26/2020 3:29 PM ORACLE SPECIALIST Body Mass Index 33.67 05/26/2020 3:29 PM ORACLE SPECIALIST documented in this encounter Patient Instructions Patient [...] eye doctor every 1 to 2 years. LE SPECIALIST documented in this encounter Progress Notes Nahomy, Esthela Conrad RN - 05/26/2020 3:30 PM CST Pre-Visit Planning Next 5 appointments (look out 90 days) May 26, 2020 3:30 PM (Arrive by 3:10 PM) Office Visit with Froylan Louise MD [facility] ([facility] [address] [address] [address] Appointment Notes for this encounter: reviewed [...] appointment needed. MyChart Patient is active on [employer].- does not read messages Call Summary Thank you for your time today. Esthela Corea RN, [facility] LE SPECIALIST Froylan Louise MD - 05/26/2020 3:30 PM [...] Final Comment: Assay Method: Chemiluminescence using Siemens Gackle analyzer Reviewed orders with patient. Reviewed health [...] normal/bright Diagnostic Test Results: Labs reviewed in [facility] EKG: appears normal, NSR, normal axis, [...] - SLEEP EVALUATION & MANAGEMENT REFERRAL - [facility] [phone] (Age 18 and up); Future - XR [...] Not controlled currently, try inhaler below. - Iakjnnlarjp-Nwldexuxb-Nkxjrotnhs (TRELEGY ELLIPTA) 100-62.5-25 MCG/INH oral inhaler; Inhale [...] Prophylaxis Lung CA Screening Froylan Louise MD [facility] LE SPECIALIST Froylan Louise MD - 05/26/2020 3:30 PM [...] Mobley CMA on 05/26/2020 at 4:49 PM. LE SPECIALIST documented in this encounter Plan of Treatment Upcoming Encounters Date Type Specialty Care Team Description 05/20/2022 Lab Lab Scheduled Referrals Name Type Priority Associated Diagnoses Order S chedule SLEEP EVALUATION & Referral Routine Irregular heartbeat Ex pected: 05/26/2020, MANAGEMENT REFERRAL - s: 05/26/2021 ADULT -[facility] [phone] (Age 18 and up) documented as of this encounter Procedures Procedure Name Priority Date/Time Associated Comments Diagnosis N TERMINAL PRO BNP Routine 05/26/2020 4:49 PM SOB (shortness o f Results for this OUTPATIENT ORACLE SPECIALIST breath) procedure are i n the results section. CRP INFLAMMATION Routine 05/26/2020 4:49 PM S/P colectomy Resu lts for this ORACLE SPECIALIST procedure are i n the results section. TSH WITH FREE T4 Routine 05/26/2020 4:48 PM Routine general Re sults for this REFLEX ORACLE SPECIALIST medical examination procedur e are in at a health care the results facility section. PROSTATE SPECIFIC Routine 05/26/2020 4:48 PM Screening for Res ults for this ANTIGEN SCREEN ORACLE SPECIALIST prostate cancer procedure are in the results section. D DIMER QUANTITATIVE Routine 05/26/2020 4:48 PM Irregular hear tbeat Results for this ORACLE SPECIALIST procedure are i n the results section. COMPREHENSIVE Routine 05/26/2020 4:48 PM Routine general Resul ts for this METABOLIC PANEL ORACLE SPECIALIST medical examination proce dure are in at a health care the results facility section. CBC WITH PLATELETS Routine 05/26/2020 4:48 PM Routine general Results for this ORACLE SPECIALIST medical examination procedur e are in at a health care the results facility section. XR CHEST 2 VIEWS Routine 05/26/2020 4:02 PM Irregular heartbea t Results for this ORACLE SPECIALIST procedure are i n the results section. EKG 12-LEAD COMPLETE Routine 05/26/2020 Irregular heartbeat Results for this W/READ - CLINICS procedure a re in the results section. documented in this encounter Results BNP-N terminal pro (05/26/2020 4:49 PM ORACLE SPECIALIST) P athologist Signature N-Terminal Pro 46 0 - 125 05/26/2020 [facility] Bnp pg/mL 6:[address] [facility] Comment: Reference range shown and results [...] specimen 05/26/2020 4:49 PM 020 4:50 (specimen) ORACLE SPECIALIST PM ORACLE SPECIALIST Froylan Louise MD LAB - BLOOD ORDERABLES Performing Organization Address City/[facility]/ZIP Code Phon e Number [facility] [address] [place], [place] [address] [facility] [address] [place], [place] [address], [facility] [phone] (ABNORMAL) CRP, inflammation (05/26/2020 4:49 PM ORACLE SPECIALIST) Patholo gist Method Time Signature CRP Inflammation 12.0 (H) 0.0 - 8.0 05/26/2020 [facility] mg/L 6:[address] [facility] Specimen Anatomical Collection Method Collection Time Receive d Time (Source) Location / / Volume Laterality Blood specimen 05/26/2020 4:49 PM 020 4:50 (specimen) ORACLE SPECIALIST PM ORACLE SPECIALIST Froylan Louise MD LAB - BLOOD ORDERABLES Performing Organization Address City/[facility]/ZIP Code Phon e Number [facility] [address] [place], [place] [address] [place] [address] [address] [place], [place] [address], [facility] [phone] Prostate spec antigen screen (05/26/2020 4:48 PM ORACLE SPECIALIST) P athologist Signature PSA 0.37 0 - 4 ug/L 05/26/2020 [facility] 10:01 PM [facility] Comment: Assay Method: Chemiluminescence using Siemens Gackle analyzer Specimen Anatomical Collection Method Collection Time Receive d Time (Source) Location / / Volume Laterality Blood specimen 05/26/2020 4:48 PM 020 4:49 (specimen) ORACLE SPECIALIST PM ORACLE SPECIALIST Froylan Louise MD LAB - BLOOD ORDERABLES Performing Organization Address City/State/ZIP Code Phon e Number [address] [address] [facility] Comprehensive metabolic panel (BMP + Alb, Alk Phos, ALT, AST, Total. Bili, TP) (05/26/2020 4:48 PM [facility]) athologist Signature Sodium 139 133 - 144 05/26/2020 [facility] mmol/L 6:[address] [facility] Potassium 3.9 3.4 - 5.3 05/26/2020 [facility] mmol/L 6:[address] [facility] Chloride 108 94 - 109 05/26/2020 [facility] mmol/L 6:[address] [facility] Carbon Dioxide 26 20 - 32 05/26/2020 [facility] mmol/L 6:[address] [facility] Anion Gap 5 3 - 14 05/26/2020 [facility] mmol/L 6:[address] [facility] Glucose 97 70 - 99 05/26/2020 [facility] mg/dL 6:[address] [facility] Urea Nitrogen 15 7 - 30 05/26/2020 [facility] mg/dL 6:[address] [facility] Creatinine 0.90 0.66 - 05/26/2020 [facility] 1.25 mg/dL 6:[address] [facility] GFR Estimate >90 >60 05/26/2020 [facility] mL/min/{1. 6:19 PM [facility] 73_m2} HOSPITAL Comment: Non GFR Calc Starting 06/09/2018, serum creatinine ba sed estimated GFR (eGFR) will be calculated using the Chronic Kidney Dise [facility] Epidemiology Collaboration (CKD-EPI) equation. GFR Estimate If >90 >60 mL/min/{1.73_m2} 05/26/2020 6: [address] [facility] Comment: GFR Calc Starting 06/09/2018, serum creatinine ba sed estimated GFR (eGFR) will be calculated using the Chronic Kidney Dise [facility] Epidemiology Collaboration (CKD-EPI) equation. Calcium 8.9 8.5 - 10.1 mg/dL 05/26/2020 6:19 PM [facility] Bilirubin Total 0.9 0.2 - 1.3 mg/dL 05/26/2020 6:22 PM [facility] Albumin 3.5 3.4 - 5.0 g/dL 05/26/2020 6:22 PM [facility] Protein Total 7.5 6.8 - 8.8 g/dL 05/26/2020 6:22 PM [facility] Alkaline Phosphatase 101 40 - 150 U/L 05/26/2020 6:22 PM [facility] ALT 29 0 - 70 U/L 05/26/2020 6:22 PM [facility] AST 24 0 - 45 U/L 05/26/2020 6:22 PM [facility] Specimen Anatomical Collection Method Collection Time Receive d Time (Source) Location / / Volume Laterality Blood specimen 05/26/2020 4:48 PM 020 4:49 (specimen) ORACLE SPECIALIST PM ORACLE SPECIALIST Froylan Louise MD LAB - BLOOD ORDERABLES Performing Organization Address City/State/ZIP Code Phon e Number [facility] [address] [place], [place] [address] [facility] [address] [phone] CBC with platelets (05/26/2020 4:48 PM ORACLE SPECIALIST) P athologist Signature WBC 6.6 4.0 - 11.0 05/26/2020 [facility] 10e9/L 5:05 PM [facility] RBC Count 4.95 4.4 - 5.9 05/26/2020 [facility] 10e12/L 5:05 PM [facility] Hemoglobin 15.1 13.3 - 05/26/2020 [facility] 17.7 g/dL 5:05 PM [facility] Hematocrit 46.1 40.0 - 05/26/2020 [facility] 53.0 % 5:05 PM [facility] MCV 93 78 - 100 05/26/2020 [facility] fl 5:05 PM [facility] MCH 30.5 26.5 - 05/26/2020 [facility] 33.0 pg 5:05 PM [facility] MCHC 32.8 31.5 - 05/26/2020 [facility] 36.5 g/dL 5:05 PM [facility] RDW 13.5 10.0 - 05/26/2020 [facility] 15.0 % 5:05 PM [facility] Platelet Count 169 150 - 450 05/26/2020 [facility] 10e9/L 5:05 PM [facility] Specimen Anatomical Collection Method Collection Time Receive d Time (Source) Location / / Volume Laterality Blood specimen 05/26/2020 4:48 PM 020 4:49 (specimen) ORACLE SPECIALIST PM ORACLE SPECIALIST Froylan Louise MD LAB - BLOOD ORDERABLES Performing Organization Address City/[facility]/ZIP Code Phon e Number [facility] [address] [place] [address] TSH with free T4 reflex (05/26/2020 4:48 PM ORACLE SPECIALIST) athologist Signature TSH 2.42 0.40 - 4.00 05/26/2020 [facility] mU/L 6:30 PM [facility] Specimen Anatomical Collection Method Collection Time Receive d Time (Source) Location / / Volume Laterality Blood specimen 05/26/2020 4:48 PM 4:49 (specimen) ORACLE SPECIALIST PM ORACLE SPECIALIST Froylan Louise MD LAB - BLOOD ORDERABLES Performing Organization Address [facility] Phon e Number [place] [address] [place], [place] [address] [phone] [place] [address] [phone] D dimer, quantitative (05/26/2020 4:48 PM ORACLE SPECIALIST) athologist Signature D Dimer 0.3 0.0 - 0.50 05/26/2020 [facility] ug/ml FEU 6:21 PM [facility] Comment: This D-dimer assay is intended [...] Blood specimen 05/26/2020 4:48 PM 4:49 (specimen) ORACLE SPECIALIST PM ORACLE SPECIALIST Froylan Louise MD LAB - BLOOD ORDERABLES Performing Organization Address City/[facility]/ZIP [facility] Phon e Number [facility] [address] [place], [place] [address] [facility] [address] [place], [place] [address] 7[facility] [phone] XR Chest 2 Views (05/26/2020 4:02 PM ORACLE SPECIALIST) Anatomical Region Laterality Modality Chest Computed Radiography Specimen (Source) Anatomical Location Collection Method / Collectio n Time Received Time / Laterality Volume Impressions 05/26/2020 4:44 PM ORACLE SPECIALIST IMPRESSION: No radiographic evidence of acute chest abnormality. ANDREAS COLEMAN MD Narrative 05/26/2020 4:44 PM ORACLE SPECIALIST CHEST TWO VIEWS 05/26/2020 4:02 PM HISTORY: [...] breath documented in this encounter Care Teams Cafe Lead Relationship Specialty Start Date End Date Froylan Louise MD PCP - General Family Practice 02/22/14 Froylan Louise MD Assigned PCP 03/13/14 2 documented as of this encounter
--- OUTSIDE RECORDS SUMMARY | 2022-05-15 22:53 | XMS_ITS | Encounter Summary ---
:1955 Author Organization [facility] Address [address] [place] [address] Care Team Providers Name Role Phone Froylan Louise MD Primary Care Provider Unavailable Froylan Louise MD Unavailable Unavailable Esthela Corea RN Unavailable Unavailable So Dodd MD Primary Care Provider Froylan Louise MD Primary Care Provider Unavailable So Dodd MD Unavailable So Dodd MD Primary Care Provider Reason for Visit Reason Comments Medication Refill Encounter Details Date Type Department Care Team Description 04/21/[address] [facility] Froylan Louise Ra, MD Medication Refill [address] [address] Social History Tobacco Use [...] you attend confucianism or Patient refused 2020 yarsanism services? Do [...] (H) documented in this encounter Care Teams Senior Accounts Payable Specialist Relationship Specialty Start Date End Date Froylan Louise MD PCP - General Family Practice 02/22/14 So Dodd MD PCP - General Family Medicine 01/10/22 01/17/22 [address] [place] [address] Froylan Louise MD PCP - General Family Medicine 01/18/22 So Dodd MD PCP - General Family Medicine 02/21/22 [address] [place] [address] Froylan Louise MD Assigned PCP 03/13/14 2 Esthela Corea, RN Personal Advocate & Liaison Family Medicine 10/16 (PAL) So Dodd MD Assigned PCP 01/05/22 [address] [place] [address] documented as of this encounter
--- OUTSIDE RECORDS SUMMARY | 2022-05-15 22:53 | XMS_ITS | Encounter Summary ---
:1955 Author Organization [facility] Address [address] [place] [address] Care Team Providers Name Role Phone Froylan Louise MD Primary Care Provider Unavailable Froylan Louise MD Unavailable Unavailable Reason for Visit Reason Comments Medication Refill Encounter Details Date Type Department Care Team Description 04/11/2020 Refill [facility] Dolly, Medication Refill [place] Isabel Monte PA-C [id number] [place] [phone] [place] [address] (Wo rk) Social History Tobacco [...] you attend jewish or Patient refused 2020 mormon services? Do [...] exceed 5 additional fills before 04/01/2020 Order: [id number] E-Prescribing Status: Receipt confirmed by pharmacy (02/10/2020 ??4:20 PM CDT) Regina Wise RN Flex documented in this encounter Plan of Treatment Upcoming Encounters Date Type Specialty Care Team Description 05/20/2022 Lab Lab documented as of this encounter Visit Diagnoses Diagnosis Insomnia, unspecified type documented in this encounter Care Teams Interactive Project Manager Relationship Specialty Start Date End Date Froylan Louise MD PCP - General Family Practice 02/22/14 Froylan Louise MD Assigned PCP 03/13/14 2 documented as of this encounter
--- OUTSIDE RECORDS SUMMARY | 2022-05-15 22:54 | XMS_ITS | Encounter Summary ---
:1955 Author Organization [facility] Address [address] [place] [address] Care Team Providers Name Role Phone Froylan Louise MD Primary Care Provider Unavailable Froylan Louise MD Unavailable Unavailable Reason for Visit Reason Comments Medication Refill Encounter Details Date Type Department Care Team Description 12/27/2019 Refill [facility] Froylan Louise Ra, MD Medication Refill [address] [phone] Social History Tobacco Use [...] you attend scientologist or Patient refused 2020 protestant services? Do [...] for review/approval because: Drug not on the [facility] refill protocol Wendi Lindsay RN, BSN documented in this encounter Plan of Treatment Upcoming Encounters Date Type Specialty Care Team Description 05/20/2022 Lab Lab documented as of this encounter Visit Diagnoses Diagnosis H/O ulcerative colitis Personal history of other diseases of di gestive system documented in this encounter Care Teams Pensions Retirement Plan Specialist Relationship Specialty Start Date End Date Froylan Louise MD PCP - General Family Practice 02/22/14 Froylan Louise MD Assigned PCP 03/13/14 2 documented as of this encounter
--- OUTSIDE RECORDS SUMMARY | 2022-05-15 22:54 | XMS_ITS | Encounter Summary ---
:1955 Author Organization [facility] Address [address] [place] [address] Care Team Providers Name Role Phone Froylan Louise MD Primary Care Provider Unavailable Froylan Louise MD Unavailable Unavailable Reason for Visit Reason Comments Medication Refill Encounter Details Date Type Department Care Team Description 12/28/2019 Refill [facility] Froylan Louise Ra, MD Medication Refill [place] [address] [facility] [address] [place] [address] Social History Tobacco Use [...] you attend pentecostal or Patient refused 2020 hinduism services? Do [...] on filedocumented in this encounter Care Teams School Counsellor Relationship Specialty Start Date End Date Froylan Louise MD PCP - General Family Practice 02/22/14 Froylan Louise MD Assigned PCP 03/13/14 2 documented as of this encounter
--- OUTSIDE RECORDS SUMMARY | 2022-05-15 22:54 | XMS_ITS | Encounter Summary ---
:1955 Author Organization [facility] Address [address] [place] [address] Care Team Providers Name Role Phone Froylan Louise MD Primary Care Provider Unavailable Froylan Louise MD Unavailable Unavailable Encounter Details Date Type Department Care Team Description 04/03/2020 Orders Only [facility] Per killian history of DVT [facility] (deep vein thrombosis) [address] [place] [address] Social History Tobacco Use [...] you attend mu-ism or Patient refused 2020 orthodoxy services? Do [...] Capillary Blood Collection (04/03/2020 10:19 AM CDT) [facility] gist Method Time Signature Capillary Capillary 04/03/2020 [facility] Blood collection 10:21 AM CDT CLINICS Collection performed [place] Specimen Anatomical Collection Method Collection Time Receive d Time (Source) Location / / Volume Laterality 04/03/2020 10:19 04/03/2020 AM CDT 10:21 AM CDT Froylan Louise MD LAB - LAB COMMUNICATION Performing Organization Address City/[facility]/ZIP Code Phon e Number [facility] [address] [place] [address] (ABNORMAL) INR (04/03/2020 10:19 AM CDT) P athologist Signature INR 2.30 (H) 0.86 - 1.14 04/03/2020 [facility] 10:35 AM CDT [facility] Comment: This test is intended for monitoring Cou madin therapy. ??Results are not accurate in patients with prolonged INR due to factor deficiency. Specimen Anatomical Collection Method Collection Time Receive d Time (Source) Location / / Volume Laterality Blood specimen 04/03/2020 10:19 0 (specimen) AM CDT 10:21 AM CDT Froylan Louise MD LAB - BLOOD ORDERABLES Performing Organization Address City/[facility]/ZIP Code Phon e Number [facility] [address] [facility] [place] [address] documented in this encounter Visit Diagnoses Diagnosis Personal history of DVT (deep vein throm bosis) Personal history of venous thrombosis an d embolism documented in this encounter Care Teams Medical Charge Entry Specialist Relationship Specialty Start Date End Date Froylan Louise MD PCP - General Family Practice 02/22/14 Froylan Louise MD Assigned PCP 03/13/14 2 documented as of this encounter
--- OUTSIDE RECORDS SUMMARY | 2022-05-15 22:54 | XMS_ITS | Encounter Summary ---
:1955 Author Organization [place] Address [facility] [place] [address] Care Team Providers Name Role Phone Froylan Louise MD Primary Care Provider Unavailable Froylan Louise MD Unavailable Unavailable Encounter Details Date Type Department Care Team Description 10/29/2019 Virtual Visit [facility] Rob Rhoades, MARILYNNC [address] [place] [address] [address] [place] [address] [place] [address] [phone] Social History Tobacco Use Types Packs/Day Years [...] you attend islam or Patient refused 2020 taoist services? Do [...] AM CDT Date: 10/29/2019 10:39:51 Clinician: Rob Rohades Clinician Patient: Virgil Christine Patient : 1955 Patient Address: [address] [address] Patient Visit Protocol: URI Patient Summary: Virgil is a 63 year old ( : 1955 ) male who initiated a Visit for COVID-19 (Coronavirus) evaluation and screening. When asked the question Please sign me up to receive news, health information and promotions from [employer] Virgil responded Yes. 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 Tell them you were referred by [facility] to have a COVID-19 test. You will be scheduled at one of our [facility] emergency department testing locations (drive-up). Please have your [facility] [...] and may have COVID-19. 4.Sign up for [employer]. We know it's scary to hear that you might have COVID-19. We want to track your symptoms to make sure you're okay over the next 2 weeks. Please look for an email from [employer]---this is a free, online program that we'll use to keep in touch. To sign up, follow the eagle skelton in the email. Learn more at [email or web address]. Where can I get more information? To learn more about COVID-19 and how to care for yourself at home, please visit the CDC website at http s://www.cdc.gov/coronavirus/2019-ncov/about/ovhov-zbin-pkvg.html. For more about your care at [facility], please visit [email or web address] Diagnosis: Acute upper respiratory infection, unspecified Diagnosis [...] as needed: no, Allow substitutions: yes Pharmacy: [id number] - - [address], [place] [address] documented in this encounter Plan of Treatment Upcoming Encounters Date Type Specialty Care Team Description 05/20/2022 Lab Lab documented as of this encounter Visit Diagnoses Not on filedocumented in this encounter Care Teams Typing Element Machine Operator Relationship Specialty Start Date End Date Froylan Louise MD PCP - General Family Practice 02/22/14 Froylan Louise MD Assigned PCP 03/13/14 2 documented as of this encounter
--- OUTSIDE RECORDS SUMMARY | 2022-05-15 22:54 | XMS_ITS | Encounter Summary ---
:1955 Author Organization [place] Address [address] [place] [address] Care Team Providers Name Role Phone Froylan Louise MD Primary Care Provider Unavailable Froylan Louise MD Unavailable Unavailable Encounter Details Date Type Department Care Team Description 02/15/2020 Orders Only [facility] Per killian history of DVT [facility] (deep vein thrombosis) [address] [place] [address] Social History Tobacco Use [...] you attend sabianism or Patient refused 2020 jain services? Do [...] Capillary Blood Collection (02/15/2020 3:49 PM CDT) [facility] gist Method Time Signature Capillary Capillary 02/15/2020 DIETERICH Blood collection 3:50 PM CDT CLINICS Collection performed [place] Specimen Anatomical Collection Method Collection Time Receive d Time (Source) Location / / Volume Laterality 02/15/2020 3:49 PM 0 3:50 CDT PM CDT Froylan Louise MD LAB - LAB COMMUNICATION Performing Organization Address City/[facility]/ZIP Code Phon e Number [facility] [address] [address] [facility] [place] [address] (ABNORMAL) INR (02/15/2020 3:49 PM CDT) P athologist Signature INR 2.70 (H) 0.86 - 1.14 02/15/2020 DIETERICH 4:04 PM CDT [facility] Comment: This test is intended for monitoring Cou madin therapy. ??Results are not accurate in patients with prolonged INR due to factor deficiency. Specimen Anatomical Collection Method Collection Time Receive d Time (Source) Location / / Volume Laterality Blood specimen 02/15/2020 3:49 PM 020 3:50 (specimen) CDT PM CDT Froylan Louise MD LAB - BLOOD ORDERABLES Performing Organization Address City/[facility]/ZIP Code Phon e Number [facility] [id number] [place] [address] documented in this encounter Visit Diagnoses Diagnosis Personal history of DVT (deep vein throm bosis) Personal history of venous thrombosis an d embolism documented in this encounter Care Teams Lard Tub Washer Relationship Specialty Start Date End Date Froylan Louise MD PCP - General Family Practice 02/22/14 Froylan Luoise MD Assigned PCP 03/13/14 2 documented as of this encounter
--- OUTSIDE RECORDS SUMMARY | 2022-05-15 22:54 | XMS_ITS | Encounter Summary ---
:1955 Author Organization [place] Address [address] [place] [address] Care Team Providers Name Role Phone Froylan Louise MD Primary Care Provider Unavailable Froylan Louise MD Unavailable Unavailable Reason for Visit Reason Comments Medication Refill Encounter Details Date Type Department Care Team Description 02/09/2020 Refill [facility] Froylan Louise Ra, MD Medication Refill [address] [address] Social History Tobacco Use [...] you attend congregational or Patient refused 2020 mosque services? Do [...] AM CDT RX monitoring program ([place]) reviewed: WATER SERVER reviewed- no concerns Last fill 10/03 Esthela Corea RN Controlled Substance Refill Request for zolpidem Problem List Complete: No PROVIDER TO CONSIDER COMPLETION OF PROBLEM LIST AND OVERVIEW/CONTROLLED SUBSTANCE AGREEMENT Last Written Prescription Date: 10/04/2019 Last Fill Quantity: 30 Last Office Visit with [facility] primary care provider: 05/31/19 Future Office visit: [...] be electronically transmitted to pharmacy by provider [email or web address] WATER SERVER checked in past 3 months? Yes today \ documented in this encounter Plan of Treatment Upcoming Encounters Date Type Specialty Care Team Description 05/20/2022 Lab Lab documented as of this encounter Visit Diagnoses Diagnosis Insomnia, unspecified type documented in this encounter Care Teams Production Line Welder Relationship Specialty Start Date End Date Froylan Louise MD PCP - General Family Practice 02/22/14 Froylan Louise MD Assigned PCP 03/13/14 2 documented as of this encounter
--- OUTSIDE RECORDS SUMMARY | 2022-05-15 22:54 | XMS_ITS | Encounter Summary ---
:1955 Author Organization [place] Address [facility] [place] [address] Care Team Providers Name Role Phone Froylan Louise MD Primary Care Provider Unavailable Froylan Louise MD Unavailable Unavailable Encounter Details Date Type Department Care Team Description 11/24/2019 Anticoagulation Therapy [facility] Audrey Louise Chronic deep vein thrombosis (DVT) of lower extremity, unspecified laterality, unspecified vein (H); Visit Clinic Erick Dubose MD custodial current use of ant icoagulant therapy [address] [place] [address] Social History Tobacco Use Types [...] you attend worship or Patient refused 2020 nondenominational services? Do [...] lab: Send INR reminders to: [facility] Comments: Anticoagulation Care Providers Provider Role Specialty Phone number Froylan Louise MD Referring Family Practice [phone] See the Encounter Report to view Anticoagulation [...] herapy documented in this encounter Care Teams Unionmelt Operator Relationship Specialty Start Date End Date Froylan Louise MD PCP - General Family Practice 02/22/14 Froylan Louise MD Assigned PCP 03/13/14 2 documented as of this encounter
--- OUTSIDE RECORDS SUMMARY | 2022-05-15 22:54 | XMS_ITS | Encounter Summary ---
:1955 Author Organization [place] Address [address] [place] [address] Care Team Providers Name Role Phone Froylan [...] on filedocumented in this encounter Care Teams Engine Room Operator Relationship Specialty Start Date End Date Froylan Louise MD PCP - General Family Practice 02/22/14 Froylan Louise MD Assigned PCP 03/13/14 2 documented as of this encounter
--- OUTSIDE RECORDS SUMMARY | 2022-05-15 22:54 | XMS_ITS | Encounter Summary ---
:1955 Author Organization [place] Address [address] [place] [address] Care Team Providers Name Role Phone Froylan Louise MD Primary Care Provider Unavailable Froylan Louise MD Unavailable Unavailable Reason for Visit Reason Comments Medication Refill Encounter Details Date Type Department Care Team Description 01/23/2020 Refill [facility] Froylan Louise Ra, MD Medication Refill [address] [address] Social History Tobacco Use [...] containing 4 or more times a w elim ira 05/25/2021 alcohol? How many drinks containing [...] you attend rastafari or Patient refused 2020 sikh services? Do [...] (H) documented in this encounter Care Teams Biosolids Management Technician Relationship Specialty Start Date End Date Froylan Louise MD PCP - General Family Practice 02/22/14 Froylan Louise MD Assigned PCP 03/13/14 2 documented as of this encounter
--- OUTSIDE RECORDS SUMMARY | 2022-05-15 22:54 | XMS_ITS | Encounter Summary ---
:1955 Author Organization [place] Address [facility] [place] [address] Care Team Providers Name Role Phone Froylan Louise MD Primary Care Provider Unavailable Froylan Louise MD Unavailable Unavailable Encounter Details Date Type Department Care Team Description 01/18/2020 Anticoagulation Therapy [facility] Audrey Louise Chronic deep vein thrombosis (DVT) of lower extremity, unspecified laterality, unspecified vein (H); Visit Clinic Erick Dubose MD residential current use of ant icoagulant therapy [address] [place] [address] Social History Tobacco Use Types [...] you attend religious or Patient refused 2020 congregation services? Do [...] Clinic for any changes, questions or concerns. (#[phone]) Valerie Hays, RN OBJECTIVE: Recent labs: (last [...] Role Specialty Phone number Froylan Louise MD [facility] Family Practice [phone] documented in this encounter Plan of Treatment Upcoming Encounters Date Type Specialty Care Team Description 05/20/2022 Lab Lab documented as of this encounter Visit Diagnoses Diagnosis Chronic deep vein thrombosis (DVT) of lo wer extremity, unspecified laterality, unspecified vein (H) residential current use of anticoagulant t herapy documented in this encounter Care Teams Clinical Transplant Coordinator Relationship Specialty Start Date End Date Froylan Louise MD PCP - General Family Practice 02/22/14 Froylan Louise MD Assigned PCP 03/13/14 2 documented as of this encounter
--- OUTSIDE RECORDS SUMMARY | 2022-05-15 22:54 | XMS_ITS | Encounter Summary ---
:1955 Author Organization [place] Address [address] [place] [address] Care Team Providers Name Role Phone Froylan Louise MD Primary Care Provider Unavailable Froylan Louise MD Unavailable Unavailable Esthela Corea RN Unavailable Unavailable So Dodd MD Primary Care Provider Froylan Louise MD Primary Care Provider Unavailable So Dodd MD Unavailable So Dodd MD Primary Care Provider Reason for Visit Reason Comments Medication Refill Encounter Details Date Type Department Care Team Description 01/24/2020 Refill [facility] Froyaln Louise Ra, MD Medication Refill [address] [address] Social History Tobacco Use [...] you attend hindu or Patient refused 2020 sabianist services? Do [...] (H) documented in this encounter Care Teams Physiotherapy Practice Manager Relationship Specialty Start Date End Date Froylan Louise MD PCP - General Family Practice 02/22/14 So Dodd MD PCP - General Family Medicine 01/10/22 01/17/22 [address] [place] [address] Froylan Louise MD PCP - General Family Medicine 01/18/22 So Dodd MD PCP - General Family Medicine 02/21/22 [address] [place] [address] Froylan Louise MD Assigned PCP 03/13/14 2 Esthela Corea, RN Personal Advocate & Liaison Family Medicine 10/16 (PAL) So Dodd MD Assigned PCP 01/05/22 [address] [place] [address] documented as of this encounter
--- OUTSIDE RECORDS SUMMARY | 2022-05-15 22:54 | XMS_ITS | Encounter Summary ---
:1955 Author Organization [place] Address [address] [place] [address] Care Team Providers Name Role Phone Froylan Louise MD Primary Care Provider Unavailable Froylan Louise MD Unavailable Unavailable Encounter Details Date Type Department Care Team Description 11/03/[address] [facility] Froylan Louise Ra, MD [place] [address] [place] [address] Social History Tobacco Use [...] containing 4 or more times a w [place] 05/25/2021 alcohol? How many drinks containing [...] you attend quaker or Patient refused 2020 uatsdin services? Do [...] be written When is form/letter needed by: monique How would you like the form/letter returned: Attn: Safety [place] Patient Notified form requests are processed in 3-5 business days:Yes Okay to leave a detailed message? No Cell number on file: Telephone Information: Hannah Alegre Patient Shop Superintendent documented in this encounter Plan of Treatment Upcoming Encounters Date Type Specialty Care Team Description 05/20/2022 Lab Lab documented as of this encounter Visit Diagnoses Not on filedocumented in this encounter Care Teams Alumni Secretary Relationship Specialty Start Date End Date Dani, Froylan Ray, MD PCP - General Family Practice 02/22/14 Froylan Louise MD Assigned PCP 03/13/14 2 documented as of this encounter
--- OUTSIDE RECORDS SUMMARY | 2022-05-15 22:54 | XMS_ITS | Encounter Summary ---
:1955 Author Organization [place] Address [address] [place] [address] Care Team Providers Name Role Phone Froylan Louise MD Primary Care Provider Unavailable Froylan Louise MD Unavailable Unavailable Encounter Details Date Type Department Care Team Description 01/04/[address] [facility], Chronic deep vein thrombosis (DVT) of lower extremity, unspecified laterality, unspecified vein (H); Visit Clinic Jonah Conrad RN salvage determiner current use of ant icoagulant therapy [address] [place] [address] Social History Tobacco Use Types Packs/Day [...] you attend hinduism or Patient refused 2020 rastafari services? Do [...] results: Patient went to Dr. Shelton, outside Trial Manager, this morning, starting prednisone taper x10 days. [...] is scheduled. Diana Garcia RN [facility] [place] Clinical Outcomes Comments: Called patient to discuss today's INR results: Patient went to Dr. Shelton, outside Trial Manager, this morning, starting prednisone taper x10 days. [...] is scheduled. Diana Garcia RN [facility] [place] OBJECTIVE Recent labs: (last 7 days) 01/04/20 [...] Specialty Phone number Froylan Louise MD Referring [facility] [phone] See the Encounter Report to view Anticoagulation [...] wer extremity, unspecified laterality, unspecified vein (H) skilled nursing current use of anticoagulant t herapy documented in this encounter Care Teams Pharmacy Technician Program Director Relationship Specialty Start Date End Date Froylan Louise MD PCP - General Family Practice 02/22/14 Froylan Louise MD Assigned PCP 03/13/14 2 documented as of this encounter
--- OUTSIDE RECORDS SUMMARY | 2022-05-15 22:54 | XMS_ITS | Encounter Summary ---
:1955 Author Organization [place] Address [address] [place] [address] Care Team Providers Name Role Phone Froylan Louise MD Primary Care Provider Unavailable Froylan Louise MD Unavailable Unavailable Esthela Croea RN Unavailable Unavailable So Dodd MD Primary Care Provider Froylan Louise MD Primary Care Provider Unavailable So Dodd MD Unavailable So Dodd MD Primary Care Provider Reason for Visit Reason Comments Medication Refill Encounter Details Date Type Department Care Team Description 10/28/2019 Refill [facility] Froylan Louise Ra, MD Medication Refill [address] [address] Social History Tobacco Use [...] attend roman catholic or Patient refused 2020 pentecostal services? Do [...] documented as of this encounter Care Teams Block Piler Relationship Specialty Start Date End Date Froylan Louise MD PCP - General Family Practice 02/22/14 So Dodd MD PCP - General Family Medicine 01/10/22 01/17/22 [address] [place] [address] Froylan Louise MD PCP - General Family Medicine 01/18/22 So Dodd MD PCP - General Family Medicine 02/21/22 [address] [place] [address] Froylan Louise MD Assigned PCP 03/13/14 2 Esthela Corea RN Personal Advocate & Liaison Family Medicine 10/16 (PAL) So Dodd MD Assigned PCP 01/05/22 [address] [place] [address] documented as of this encounter
--- OUTSIDE RECORDS SUMMARY | 2022-05-15 22:54 | XMS_ITS | Encounter Summary ---
:1955 Author Organization [place] Address [address] [place] [address] Care Team Providers Name Role Phone Froylan [...] you attend holiness or Patient refused 2020 bahai services? Do [...] on filedocumented in this encounter Care Teams Scorer Helper Relationship Specialty Start Date End Date Froylan Louise MD PCP - General Family Practice 02/22/14 Froylan Louise MD Assigned PCP 03/13/14 2 documented as of this encounter
--- OUTSIDE RECORDS SUMMARY | 2022-05-15 22:54 | XMS_ITS | Encounter Summary ---
:1955 Author Organization [place] Address [address] [place] [address] Care Team Providers Name Role Phone Froylan Louise MD Primary Care Provider Unavailable Froylan Louise MD Unavailable Unavailable Reason for Visit Reason Comments Medication Refill Encounter Details Date Type Department Care Team Description 01/01/2020 Refill [facility] Froylan Louise Ra, MD Medication Refill [address] [address] Social History Tobacco [...] you attend religion or Patient refused 2020 catholic services? Do [...] mg all other days Prescription approved per [facility] Refill Protocol. Rebecca Dalton, CINDY Anticoagulation Nurse - [facility] [place] documented in this encounter Plan of Treatment Upcoming Encounters Date Type Specialty Care Team Description 05/20/2022 Lab Lab documented as of this encounter Visit Diagnoses Diagnosis Acute deep vein thrombosis (DVT) of prox imal vein of both lower extremities (H) documented in this encounter Care Teams Sock Knitting Machine Operator Relationship Specialty Start Date End Date Froyaln Louise MD PCP - General Family Practice 02/22/14 Froylan Louise MD Assigned PCP 03/13/14 2 documented as of this encounter
--- OUTSIDE RECORDS SUMMARY | 2022-05-15 22:54 | XMS_ITS | Encounter Summary ---
:1955 Author Organization [place] Address [facility] [place] [address] Care Team Providers Name Role Phone Froylan Louise MD Primary Care Provider Unavailable Froylan Louise MD Unavailable Unavailable Encounter Details Date Type Department Care Team Description 01/04/2020 Orders Only [facility] Froylan Louise, Pers onal history of Clinic Chhaya VILLASEÑOR DVT (deep vein [address] [facility] thrombosis) (Primary [place], [place] Dx) [id number] Social History Tobacco Use Types Packs/Day Years Used Date Smoking Tobacco: Former Cigarettes 2 25 Quit : 08/04/2006 Smokeless Tobacco: Never Comments: 2004 Alcohol Use Standard Drinks/Week Comments Yes 0 (1 standard drink = 0.6 oz pure alcoho l) 4 BEERS A WEEK Alcohol Habits Answer Date Recorded How often do you have a drink containing 4 or more times a w [place] 05/25/2021 alcohol? How many drinks containing [...] you attend sikh or Patient refused 2020 buddhism services? Do [...] embolism documented in this encounter Care Teams Data Keyer Relationship Specialty Start Date End Date Froylan Louise MD PCP - General Family Practice 02/22/14 Froylan Louise MD Assigned PCP 03/13/14 2 documented as of this encounter
--- OUTSIDE RECORDS SUMMARY | 2022-05-15 22:54 | XMS_ITS | Encounter Summary ---
:1955 Author Organization [place] Address [address] [place] [address] Care Team Providers Name Role Phone Froylan Louise MD Primary Care Provider Unavailable Froylan Louise MD Unavailable Unavailable Encounter Details Date Type Department Care Team Description 02/15/[address] [facility] Jazzy Ramos Chronic deep vein thrombosis (DVT) of lower extremity, unspecified laterality, unspecified vein (H); Visit Clinic Demetra Cornad RN [facility] [place] use of anticoagulant therapy [address] [address] Social History Tobacco Use Types [...] you attend taoism or Patient refused 2020 moravian services? Do [...] (H) intermodal dispatcher current use of anticoagulant t herapy documented in this encounter Care Teams Jewelry Facer Relationship Specialty Start Date End Date Froylan Louise MD PCP - General Family Practice 02/22/14 Froylan Louise MD Assigned PCP 03/13/14 2 documented as of this encounter
--- OUTSIDE RECORDS SUMMARY | 2022-05-15 22:54 | XMS_ITS | Encounter Summary ---
:1955 Author Organization [place] Address [address] [place] [address] Care Team Providers Name Role Phone Froylan Louise MD Primary Care Provider Unavailable Froylan Louise MD Unavailable Unavailable Reason for Visit Reason Comments Medication Refill Encounter Details Date Type Department Care Team Description 03/12/2020 Refill [facility] Froylan Louise Ra, MD Medication Refill [address] [address] Social History Tobacco [...] you attend confucianism or Patient refused 2020 jain services? Do [...] stream documented in this encounter Care Teams Resident Program Specialist Relationship Specialty Start Date End Date Froylan Louise MD PCP - General Family Practice 02/22/14 Froylan Louise MD Assigned PCP 03/13/14 2 documented as of this encounter
--- OUTSIDE RECORDS SUMMARY | 2022-05-15 22:54 | XMS_ITS | Encounter Summary ---
:1955 Author Organization [place] Address [address] [place] [address] Care Team Providers Name Role Phone Froylan Louise MD Primary Care Provider Unavailable Froylan Louise MD Unavailable Unavailable Encounter Details Date Type Department Care Team Description 11/24/2019 Orders Only [facility] Wily g term current use of anticoagulants with INR goal of 2.0-3.0; [facility] DVT (deep venous thrombosis) (H) [address] [place] [address] Social History Tobacco Use [...] you attend protestant or Patient refused 2020 jainism services? Do [...] nts CAPILLARY BLOOD Routine 11/24/2019 1:09 PM oysterman current u se Results for this COLLECTION CDT of anticoagulants with proce dure are in INR goal of 2.0-3.0 the resu lts section. INR Routine 11/24/2019 1:09 PM halfway current use Results for this CDT of anticoagulants with proce dure are in INR goal of 2.0- 3.0 the results DVT (deep venous section. thrombosis) (H) documented in this encounter Results Capillary Blood Collection (11/24/2019 1:09 PM CDT) [facility] gist Method Time Signature Capillary Capillary 11/24/2019 [place] Blood collection 1:10 PM CDT CLINICS Collection [facility] Specimen Anatomical Collection Method Collection Time Receive d Time (Source) Location / / Volume Laterality 11/24/2019 1:09 PM 0 1:10 CDT PM CDT Froylan Louise MD LAB - LAB COMMUNICATION Performing Organization Address City/[facility]/ZIP Code Phon e Number [facility] [id number] [place] [address] (ABNORMAL) INR (11/24/2019 1:09 PM CDT) P athologist Signature INR 2.40 (H) 0.86 - 1.14 11/24/2019 [place] 1:23 PM CDT [facility] Comment: [...] [facility]/ZIP Code Phon e Number [facility] [id number] [place] [address] documented in this encounter Visit Diagnoses Diagnosis halfway current use of anticoagulants with INR goal of 2.0-3.0 DVT (deep venous thrombosis) (H) Acute venous embolism and thrombosis of unspecified deep vessels of lower extremity documented in this encounter Care Teams Boring Mill Operator For Metal Relationship Specialty Start Date End Date Froylan Louise MD PCP - General Family Practice 02/22/14 Froylan Louise MD Assigned PCP 03/13/14 2 documented as of this encounter
--- OUTSIDE RECORDS SUMMARY | 2022-05-15 22:54 | XMS_ITS | Encounter Summary ---
:1955 Author Organization [place] Address [address] [place] [address] Care Team Providers Name Role Phone Froylan Louise MD Primary Care Provider Unavailable Froylan Louise MD Unavailable Unavailable Reason for Visit Reason Onset Date Comments Anticoagulation 01/18/2020 due for INR Encounter Details Date Type Department Care Team Description 01/18/2020 Telephone [facility] Froylan Louise (due for Clinic [place] MD [place] INR) [address] [place] [address] Social History Tobacco Use Types [...] you attend buddhist or Patient refused 2020 anabaptist services? Do [...] 3:15 today. Diana Garcia RN Anticoagulation [facility] [place] documented in this encounter Plan of Treatment Upcoming Encounters Date Type Specialty Care Team Description 05/20/2022 Lab Lab documented as of this encounter Visit Diagnoses Not on filedocumented in this encounter Care Teams Zumba Instructor Relationship Specialty Start Date End Date Froylan Louise MD PCP - General Family Practice 02/22/14 Froylan Louise MD Assigned PCP 03/13/14 2 documented as of this encounter
--- OUTSIDE RECORDS SUMMARY | 2022-05-15 22:54 | XMS_ITS | Encounter Summary ---
:1955 Author Organization [place] Address [address] [place] [address] Care Team Providers Name Role Phone Froylan Louise MD Primary Care Provider Unavailable Froylan Louise MD Unavailable Unavailable Encounter Details Date Type Department Care Team Description 10/29/2019 Telephone [facility] Froylan Louise Ra, MD [place] [address] [place] [address] Social History Tobacco Use [...] you attend yarsanism or Patient refused 2020 uatsdin services? Do [...] to transfer. Please call Virgil salazar at [phone] and advise. Telephone Encounter - Esthela Corea [...] Triage with [facility] - provider name: Froylan Lousie Pt expressed understanding and acceptance of the [...] filedocumented in this encounter Care Teams Sales Consulting Director Relationship Specialty Start Date End Date Froylan Louise MD PCP - General Family Practice 02/22/14 Froylan Louise MD Assigned PCP 03/13/14 2 documented as of this encounter
--- OUTSIDE RECORDS SUMMARY | 2022-05-15 22:54 | XMS_ITS | Encounter Summary ---
:1955 Author Organization [place] Address [address] [place] [address] Care Team Providers Name Role Phone Froylan [...] on filedocumented in this encounter Care Teams Hot Car Operator Relationship Specialty Start Date End Date Froylan Louise MD PCP - General Family Practice 02/22/14 Froylan Louise MD Assigned PCP 03/13/14 2 documented as of this encounter
--- OUTSIDE RECORDS SUMMARY | 2022-05-15 22:54 | XMS_ITS | Encounter Summary ---
:1955 Author Organization [place] Address [address] [place] [address] Care Team Providers Name Role Phone Froylan Louise MD Primary Care Provider Unavailable Froylan Louise MD Unavailable Unavailable Encounter Details Date Type Department Care Team Description 01/18/2020 Orders Only [facility] Per killian history of DVT [facility] (deep vein thrombosis) [address] [place] [address] Social History Tobacco Use [...] you attend jain or Patient refused 2020 episcopal services? Do [...] Capillary Blood Collection (01/18/2020 3:33 PM CDT) [facility] gist Method Time Signature Capillary Capillary 01/18/2020 [place] Blood collection 3:34 PM CDT CLINICS Collection performed [place] Specimen Anatomical Collection Method Collection Time Receive d Time (Source) Location / / Volume Laterality 01/18/2020 3:33 PM 0 3:34 CDT PM CDT Froylan Louise MD LAB - LAB COMMUNICATION Performing Organization Address City/[facility]/ZIP Code Phon e Number [facility] [address] [place] [address] (ABNORMAL) INR (01/18/2020 3:33 PM CDT) P athologist Signature INR 2.60 (H) 0.86 - 1.14 01/18/2020 [place] 4:04 PM CDT [facility] Comment: This test is intended for monitoring Cou madin therapy. ??Results are not accurate in patients with prolonged INR due to factor deficiency. Specimen Anatomical Collection Method Collection Time Receive d Time (Source) Location / / Volume Laterality Blood specimen 01/18/2020 3:33 PM 020 3:34 (specimen) CDT PM CDT Froylan Louise MD LAB - BLOOD ORDERABLES Performing Organization Address City/[facility]/ZIP Code Phon e Number [facility] [address] [place] [address] documented in this encounter Visit Diagnoses Diagnosis Personal history of DVT (deep vein throm bosis) Personal history of venous thrombosis an d embolism documented in this encounter Care Teams Audit Lead Relationship Specialty Start Date End Date Froylan Louise MD PCP - General Family Practice 02/22/14 Froylan Louise MD Assigned PCP 03/13/14 2 documented as of this encounter
--- OUTSIDE RECORDS SUMMARY | 2022-05-15 22:54 | XMS_ITS | Encounter Summary ---
:1955 Author Organization [place] Address [address] [place] [address] Care Team Providers Name Role Phone Froylan [...] you attend cheondoism or Patient refused 2020 faith services? Do [...] filedocumented in this encounter Care Teams Spring Coiling Machine Setter Relationship Specialty Start Date End Date Froylan Louise MD PCP - General Family Practice 02/22/14 Froylan Louise MD Assigned PCP 03/13/14 2 documented as of this encounter
--- OUTSIDE RECORDS SUMMARY | 2022-05-15 22:54 | XMS_ITS | Encounter Summary ---
:1955 Author Organization [place] Address [address] [place] [address] Care Team Providers Name Role Phone Froylan Louise MD Primary Care Provider Unavailable Froylan Louise MD Unavailable Unavailable Reason for Visit Reason Comments Suspected Covid Encounter Details Date Type Department Care Team Description 10/31/2019 Office Visit [facility] Urgent Sugar pected 2019 Novel Care [place] Coronavirus Infection [address] (Primary Dx) [place] [address] Social History Tobacco Use Types [...] you attend restoration or Patient refused 2020 jain services? Do [...] by PCR Nasopharyngeal (10/31/2019 9:50 AM CDT) [facility] Method Time Signature COVID-19 Nasopharyngeal 10/31/2019 [place] Virus PCR to 9:55 AM CDT [facility] COVID-19 Not Detected 11/01/2019 [facility] Virus PCR to 1:07 PM CDT [facility] Comment: Collection [...] N1,N2 gene targets of CoV2 and human VENEER MANUFACTURER as an internal control. A negative result [...] (Centers for Disease Control) Testing performed by [facility], Room 1-210, [address] [place] [address], [place], [place]? [address].? This test was developed and its performance characteristics determined b y the [facility]. It has not been cleared or appr [...] Organization Address City/State/ZIP Code Phon e Number [address] [address] [facility] Room: 1-[address] [address] [place] documented in this encounter Visit Diagnoses Diagnosis Suspected 2018 novel coronavirus infecti on - Primary documented in this encounter Additional Health Concerns Infection Onset Date Last Indicated Resolved Time Rule Out COVID-19 10/31/2019 10/31/2019 11/01/2019 1:0 8 PM CDT documented as of this encounter Care Teams Product Mgmt Dev Manager Relationship Specialty Start Date End Date Froylan Louise MD PCP - General Family Practice 02/22/14 Froylan Louise MD Assigned PCP 03/13/14 2 documented as of this encounter
--- OUTSIDE RECORDS SUMMARY | 2022-05-15 22:54 | XMS_ITS | Encounter Summary ---
:1955 Author Organization [place] Address [address] [place] [address] Care Team Providers Name Role Phone Froylan Louise MD Primary Care Provider Unavailable Froylan Louise MD Unavailable Unavailable Reason for Visit Reason Comments Medication Refill Encounter Details Date Type Department Care Team Description 01/16/[address] [facility] Froylan Louise Ra, MD Medication Refill [address] [address] Social History Tobacco [...] containing 4 or more times a w jackson 05/25/2021 alcohol? How many drinks containing alcohol [...] you attend shinto or Patient refused 2020 protestant services? Do [...] 01/17/2020 8:10 AM CDT Prescription approved per [facility] Refill Protocol. Wendi Lindsay RN, BSN documented in this encounter Plan of Treatment Upcoming Encounters Date Type Specialty Care Team Description 05/20/2022 Lab Lab documented as of this encounter Visit Diagnoses Diagnosis Lichen planus documented in this encounter Care Teams Soda Clerk Relationship Specialty Start Date End Date Froylan Louise MD PCP - General Family Practice 02/22/14 Froylan Louise MD Assigned PCP 03/13/14 2 documented as of this encounter
--- OUTSIDE RECORDS SUMMARY | 2022-05-15 22:54 | XMS_ITS | Encounter Summary ---
:1955 Author Organization [place] Address [address] [place] [address] Care Team Providers Name Role Phone Froylan Louise MD Primary Care Provider Unavailable Froylan Louise MD Unavailable Unavailable Encounter Details Date Type Department Care Team Description 10/28/2019 Anticoagulation Therapy [facility] Jazzy Ramos Chronic deep vein thrombosis (DVT) of lower extremity, unspecified laterality, unspecified vein (H); Visit Clinic Demetra Conrad RN met[place] milly [place] use of anticoagulant therapy [address] [address] Social History Tobacco Use Types [...] Role Specialty Phone number Froylan Louise MD [facility] [phone] See the Encounter Report to view Anticoagulation [...] wer extremity, unspecified laterality, unspecified vein (H) [place] current use of anticoagulant t herapy documented in this encounter Care Teams Motor Bike Mechanic Relationship Specialty Start Date End Date Froylan Louise MD PCP - General Family Practice 02/22/14 Froylan Louise MD Assigned PCP 03/13/14 2 documented as of this encounter
--- OUTSIDE RECORDS SUMMARY | 2022-05-15 22:54 | XMS_ITS | Encounter Summary ---
:1955 Author Organization [place] Address [address] [place] [address] Care Team Providers Name Role Phone Froylan Louise MD Primary Care Provider Unavailable Froylan Louise MD Unavailable Unavailable Encounter Details Date Type Department Care Team Description 02/15/2020 Anticoagulation Therapy [facility], Chronic deep vein thrombosis (DVT) of lower extremity, unspecified laterality, unspecified vein (H); Visit Clinic Jonah Conrad RN correction current use of ant icoagulant therapy [address] [place] [address] Social History Tobacco Use Types Packs/Day [...] you attend congregation or Patient refused 2020 mu-ism services? Do [...] Humira approval, has been denied 3x but Supervisor Whipped Topping is continuing appeal process. He states he doesn't always take every dose but his symptoms are controlled. Added to med list as patient reported drug. Reviewed maintenance warfarin dosing with patient. Patient will remain on the same dose until next INR check. No other questions or concerns. Scheduled next lab-only INR in six weeks. Diana Garcia RN [facility] [place] Clinical Outcomes Negatives: Major bleeding event, Thromboembolic [...] Humira approval, has been denied 3x but Supervisor Whipped Topping is continuing appeal process. He states he doesn't always take every dose but his symptoms are controlled. Added to med list as patient reported drug. Reviewed maintenance warfarin dosing with patient. Patient will remain on the same dose until next INR check. No other questions or concerns. Scheduled next lab-only INR in six weeks. Diana Garcia RN [facility] [place] OBJECTIVE Recent labs: (last 7 days) 02/15/20 [...] number Froylan Louise MD Referring Family Practice [phone] See the Encounter Report to view Anticoagulation [...] wer extremity, unspecified laterality, unspecified vein (H) network announcer current use of anticoagulant t herapy documented in this encounter Care Teams Professor Criminal Justice Relationship Specialty Start Date End Date Froylan Louise MD PCP - General Family Practice 02/22/14 Froylan Louise MD Assigned PCP 03/13/14 2 documented as of this encounter
--- OUTSIDE RECORDS SUMMARY | 2022-05-15 22:54 | XMS_ITS | Encounter Summary ---
:1955 Author Organization [place] Address [address] [place] [address] Care Team Providers Name Role Phone Froylan Louise MD Primary Care Provider Unavailable Froylan Louise MD Unavailable Unavailable Reason for Visit Reason Comments Medication Refill Encounter Details Date Type Department Care Team Description 03/19/2020 Refill [facility] Froylan Louise Ra, MD Medication Refill [address] [address] Social History Tobacco [...] you attend lutheran or Patient refused 2020 alevism services? Do [...] for review/approval because: Drug not on the [facility] refill protocol Wendi Lindsay RN, BSN documented in this encounter Plan of Treatment Upcoming Encounters Date Type Specialty Care Team Description 05/20/2022 Lab Lab documented as of this encounter Visit Diagnoses Diagnosis H/O ulcerative colitis Personal history of other diseases of di gestive system documented in this encounter Care Teams Head School Custodian Relationship Specialty Start Date End Date Froylan Louise MD PCP - General Family Practice 02/22/14 Froylan Louise MD Assigned PCP 03/13/14 2 documented as of this encounter
--- OUTSIDE RECORDS SUMMARY | 2022-05-15 22:54 | XMS_ITS | Encounter Summary ---
:1955 Author Organization [place] Address [address] [place] [address] Care Team Providers Name Role Phone Froylan Louise MD Primary Care Provider Unavailable Froylan Louise MD Unavailable Unavailable Encounter Details Date Type Department Care Team Description 01/04/2020 Orders Only [facility] Wily g term current use of anticoagulants with INR goal of 2.0-3.0; [facility] DVT (deep venous thrombosis) (H) [address] [place] [address] Social History Tobacco Use [...] containing 4 or more times a w [place] 05/25/2021 alcohol? How many drinks containing alcohol [...] you attend baptist or Patient refused 2020 gnosticist services? Do [...] Comme nts CAPILLARY BLOOD Routine 01/04/2020 11:08 rural mail carrier current use Results for this COLLECTION AM CDT of anticoagulants with proce dure are in INR goal of 2.0-3.0 the resu lts section. INR Routine 01/04/2020 11:08 residential current use Re sults for this AM CDT of anticoagulants with proce dure are in INR goal of 2.0- 3.0 the results DVT (deep venous section. thrombosis) (H) documented in this encounter Results Capillary Blood Collection (01/04/2020 11:08 AM CDT) [facility] gist Method Time Signature Capillary Capillary 01/04/2020 [place] Blood collection 11:09 AM CDT CLINICS Collection performed [place] Specimen Anatomical Collection Method Collection Time Receive d Time (Source) Location / / Volume Laterality 01/04/2020 11:08 01/04/2020 AM CDT 11:09 AM CDT Froylan Louise MD LAB - LAB COMMUNICATION Performing Organization Address City/[facility]/ZIP Code Phon e Number [facility] [phone] [place] [address] (ABNORMAL) INR (01/04/2020 11:08 AM CDT) athologist Signature INR 3.20 (H) 0.86 - 1.14 01/04/2020 [place] 11:24 AM CDT [facility] Comment: This test is intended for monitoring Cou madin therapy. ??Results are not accurate in patients with prolonged INR due to factor deficiency. Specimen Anatomical Collection Method Collection Time Receive d Time (Source) Location / / Volume Laterality Blood specimen 01/04/2020 11:08 0 (specimen) AM CDT 11:09 AM CDT Froylan Louise MD LAB - BLOOD ORDERABLES Performing Organization Address City/[facility]/ZIP Code Phon e Number [facility] [address] 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
--- OUTSIDE RECORDS SUMMARY | 2022-05-15 22:55 | XMS_ITS | Encounter Summary ---
:1955 Author Organization [place] Address [address] [place] [address] Care Team Providers Name Role Phone Froylan [...] you attend buddhism or Patient refused 2020 congregational services? Do [...] on filedocumented in this encounter Care Teams Narrow Fabric Calenderer Relationship Specialty Start Date End Date Froylan Louise MD PCP - General Family Practice 02/22/14 Froylan Louise MD Assigned PCP 03/13/14 2 documented as of this encounter
--- OUTSIDE RECORDS SUMMARY | 2022-05-15 22:55 | XMS_ITS | Encounter Summary ---
:1955 Author Organization [place] Address [address] [place] [address] Care Team Providers Name Role Phone Froylan Louise MD Primary Care Provider Unavailable Froylan Louise MD Unavailable Unavailable Encounter Details Date Type Department Care Team Description 07/12/2019 Orders Only [facility] Wily g term current use of anticoagulants with INR goal of 2.0-3.0; [facility] DVT (deep venous thrombosis) (H) [address] [place] [address] Social History Tobacco Use [...] you attend yazdanism or Patient refused 2020 lutheran services? Do [...] nts CAPILLARY BLOOD Routine 07/12/2019 3:51 PM long-term current u se Results for this COLLECTION MARKET RESEARCH COORDINATOR of anticoagulants with proce dure are in INR goal of 2.0-3.0 the resu lts section. INR Routine 07/12/2019 3:51 PM assistant terminal manager current use Results for this MARKET RESEARCH COORDINATOR of anticoagulants with proce dure are in INR goal of 2.0- 3.0 the results DVT (deep venous section. thrombosis) (H) documented in this encounter Results Capillary Blood Collection (07/12/2019 3:51 PM MARKET RESEARCH COORDINATOR) Patholo gist Method Time Signature Capillary Capillary 07/12/2019 [facility] Blood collection 3:52 PM MARKET RESEARCH COORDINATOR CLINICS Collection performed [place] Specimen Anatomical Collection Method Collection Time Receive d Time (Source) Location / / Volume Laterality 07/12/2019 3:51 PM 0 3:52 MARKET RESEARCH COORDINATOR PM MARKET RESEARCH COORDINATOR Froylan Louise MD LAB - LAB COMMUNICATION Performing Organization Address City/[facility]/ZIP [facility] Phon e Number [facility] [address] [place] [address] (ABNORMAL) INR (07/12/2019 3:51 PM MARKET RESEARCH COORDINATOR) P athologist Signature INR 2.20 (H) 0.86 - 1.14 07/12/2019 [facility] 3:57 PM MARKET RESEARCH COORDINATOR [facility] Comment: This test is intended for monitoring Cou madin therapy. ??Results are not accurate in patients with prolonged INR due to factor deficiency. Specimen Anatomical Collection Method Collection Time Receive d Time (Source) Location / / Volume Laterality Blood specimen 07/12/2019 3:51 PM 020 3:52 (specimen) MARKET RESEARCH COORDINATOR PM MARKET RESEARCH COORDINATOR Froylan Louise MD LAB - BLOOD ORDERABLES Performing Organization Address City/[facility]/ZIP [facility] Phon e Number [facility] [address] [place] [address] documented in this encounter Visit Diagnoses Diagnosis long-term current use of anticoagulants with INR goal of 2.0-3.0 DVT (deep venous thrombosis) (H) Acute venous embolism and thrombosis of unspecified deep vessels of lower extremity documented in this encounter Care Teams Python Programmer Relationship Specialty Start Date End Date Froylan Louise MD PCP - General Family Practice 02/22/14 Froylan Louise MD Assigned PCP 03/13/14 2 documented as of this encounter
--- OUTSIDE RECORDS SUMMARY | 2022-05-15 22:55 | XMS_ITS | Encounter Summary ---
:1955 Author Organization [place] Address [address] [place] [address] Care Team Providers Name Role Phone Froylan Louise MD Primary Care Provider Unavailable Froylan Louise MD Unavailable Unavailable Reason for Visit Reason Comments Medication Refill Encounter Details Date Type Department Care Team Description 10/06/2019 Refill [facility] Froylan Louise Ra, MD Medication Refill [address] [address] Social History Tobacco Use [...] containing 4 or more times a w elem 05/25/2021 alcohol? How many drinks containing alcohol [...] you attend episcopalian or Patient refused 2020 sabianist services? Do [...] system documented in this encounter Care Teams Pineapple Plantation Manager Relationship Specialty Start Date End Date Froylan Louise MD PCP - General Family Practice 02/22/14 Froylan Louise MD Assigned PCP 03/13/14 2 documented as of this encounter
--- OUTSIDE RECORDS SUMMARY | 2022-05-15 22:55 | XMS_ITS | Encounter Summary ---
:1955 Author Organization [facility] Address [address] [place] [address] Care Team Providers Name Role Phone Froylan Louise MD Primary Care Provider Unavailable Froylan Louise MD Unavailable Unavailable Reason for Visit Reason Comments Medication Refill Encounter Details Date Type Department Care Team Description 08/04/2019 Refill [facility] Froylan Louise Ra, MD Medication Refill [address] [address] Social History Tobacco [...] you attend tenriism or Patient refused 2020 evangelical services? Do [...] Telephone Encounter - Wendi Lindsay RN - 08/04/2019 3:57 PM CST Routing refill request to provider for review/approval because: Drug not on the [facility] refill protocol Wendi Lindsay RN, BSN H DYER documented in this encounter Plan of Treatment Upcoming Encounters Date Type Specialty Care Team Description 05/20/2022 Lab Lab documented as of this encounter Visit Diagnoses Diagnosis H/O ulcerative colitis Personal history of other diseases of di gestive system documented in this encounter Care Teams Crop And Soil Technician Relationship Specialty Start Date End Date Froylan Louise MD PCP - General Family Practice 02/22/14 Froylan Louise MD Assigned PCP 03/13/14 2 documented as of this encounter
--- OUTSIDE RECORDS SUMMARY | 2022-05-15 22:55 | XMS_ITS | Encounter Summary ---
:1955 Author Organization [facility] Address [address] [place] [address] Care Team Providers Name Role Phone Froylan Louise MD Primary Care Provider Unavailable Froylan Louise MD Unavailable Unavailable Reason for Visit Reason Onset Date Comments Nurse Advice Line 06/24/2019 popped blood vessel Encounter Details Date Type Department Care Team Description 06/24/2019 Telephone [facility] Froylan Louise Nurs e Advice Line [facility] Chhaya VILLASEÑOR (popped blood vessel) [address] [place] [address] Social History Tobacco Use Types [...] Pt expressed understanding Wendi Lindsay RN, BSN EAR POWERPLANT SUPERVISOR documented in this encounter Plan of Treatment Upcoming Encounters Date Type Specialty Care Team Description 05/20/2022 Lab Lab documented as of this encounter Visit Diagnoses Not on filedocumented in this encounter Care Teams Warranty Manager Relationship Specialty Start Date End Date Froylan Louise MD PCP - General Family Practice 02/22/14 Froylan Louise MD Assigned PCP 03/13/14 2 documented as of this encounter
--- OUTSIDE RECORDS SUMMARY | 2022-05-15 22:55 | XMS_ITS | Encounter Summary ---
:1955 Author Organization [facility] Address [address] [place] [address] Care Team Providers Name Role Phone Froylan Louise MD Primary Care Provider Unavailable Froylan Louise MD Unavailable Unavailable Encounter Details Date Type Department Care Team Description 08/05/2019 Orders Only [facility] Wily g term current use of anticoagulants with INR goal of 2.0-3.0; [facility] DVT (deep venous thrombosis) (H) [address] [place] [address] Social History Tobacco Use [...] times a w [employer] [place] 05/25/2021 alcohol? How many drinks containing alcohol [...] Comme nts INR Routine 08/05/2019 3:51 PM extermination supervisor current use of Results for this INDUSTRIAL GAS SERVICER anticoagulants with INR proc edure are in goal of 2.0-3.0 the results DVT (deep venous section. thrombosis) (H) documented in this encounter Results (ABNORMAL) INR (08/05/2019 3:51 PM INDUSTRIAL GAS SERVICER) athologist Signature INR 3.40 (H) 0.86 - 1.14 08/05/2019 [place] 4:07 PM [facility] Comment: This test is intended for monitoring Cou madin therapy. ??Results are not accurate in patients with prolonged INR due to factor deficiency. Specimen Anatomical Collection Method Collection Time Receive d Time (Source) Location / / Volume Laterality Blood specimen 08/05/2019 3:51 PM 020 3:56 (specimen) INDUSTRIAL GAS SERVICER PM INDUSTRIAL GAS SERVICER Froylan Louise MD LAB - BLOOD ORDERABLES Performing Organization Address City/State/ZIP Code Phon e Number [facility] [id number] [place] [address] documented in this encounter Visit Diagnoses Diagnosis extermination supervisor current use of anticoagulants with INR goal of 2.0-3.0 DVT (deep venous thrombosis) (H) Acute venous embolism and thrombosis of unspecified deep vessels of lower extremity documented in this encounter Care Teams Freight Representative Relationship Specialty Start Date End Date Froylan Louise MD PCP - General Family Practice 02/22/14 Froylan Louise MD Assigned PCP 03/13/14 2 documented as of this encounter
--- OUTSIDE RECORDS SUMMARY | 2022-05-15 22:55 | XMS_ITS | Encounter Summary ---
:1955 Author Organization [place] Address [address] [place] [address] Care Team Providers Name Role Phone Froylan Louise MD Primary Care Provider Unavailable Froylan Louise MD Unavailable Unavailable Reason for Visit Reason Onset Date Comments INR RESULTS 08/05/2019 Encounter Details Date Type Department Care Team Description 08/05/2019 Telephone [facility] Froylan Louise Ra, MD INR RESULTS [address] [address] Social History Tobacco Use [...] you attend adventism or Patient refused 2020 yazdanism services? Do [...] Clinic for any changes, questions or concerns. 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
--- OUTSIDE RECORDS SUMMARY | 2022-05-15 22:55 | XMS_ITS | Encounter Summary ---
:1955 Author Organization [facility] Address [address] [place] [address] Care Team Providers Name Role Phone Froylan Louise MD Primary Care Provider Unavailable Froylan Louise MD Unavailable Unavailable Esthela Corea RN Unavailable Unavailable So Dodd MD Primary Care Provider Froylan Louise MD Primary Care Provider Unavailable So Dodd MD Unavailable So Dodd MD Primary Care Provider Reason for Visit Reason Comments Medication Refill Encounter Details Date Type Department Care Team Description 10/01/2019 Refill [facility] Froylan Louise Ra, MD Medication Refill [address] [address] Social History Tobacco Use [...] you attend faith or Patient refused 2020 zoroastrian services? Do [...] documented as of this encounter Care Teams Ear Mold Laboratory Technician Relationship Specialty Start Date End Date Froylan Louise MD PCP - General Family Practice 02/22/14 So Dodd MD PCP - General Family Medicine 01/10/22 01/17/22 [address] [place] [address] Froylan Louise MD PCP - General Family Medicine 01/18/22 So Dodd MD PCP - General Family Medicine 02/21/22 [address] [place] [address] Froylan Louise MD Assigned PCP 03/13/14 2 Esthela Corea, RN Personal Advocate & Liaison Family Medicine 10/16 (PAL) So Dodd MD Assigned PCP 01/05/22 [address] [place] [address] documented as of this encounter
--- OUTSIDE RECORDS SUMMARY | 2022-05-15 22:55 | XMS_ITS | Encounter Summary ---
:1955 Author Organization [place] Address [facility] [place] [address] Care Team Providers Name Role Phone Froylan Louise MD Primary Care Provider Unavailable Froylan Louise MD Unavailable Unavailable Encounter Details Date Type Department Care Team Description 09/30/2019 Anticoagulation Therapy [facility], longterm current use of anticoagulant therapy (Primary Dx); Visit Clinic Mendoza Burks RN Chronic deep vein thrombosis (DVT) of lower extremity, unspecified laterality, unspecified vein (H) [address] [facility] [address] [place] [address] Social History Tobacco Use Types [...] containing 4 or more times a w cahto 05/25/2021 alcohol? How many drinks containing alcohol [...] you attend judaism or Patient refused 2020 alevism services? 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
--- OUTSIDE RECORDS SUMMARY | 2022-05-15 22:55 | XMS_ITS | Encounter Summary ---
:1955 Author Organization [facility] Address [address] [place] [address] Care Team Providers Name Role Phone Froylan Louise MD Primary Care Provider Unavailable Froylan Louise MD Unavailable Unavailable Encounter Details Date Type Department Care Team Description 10/28/2019 Orders Only [facility] Wily g term current use of anticoagulants with INR goal of 2.0-3.0; [facility] DVT (deep venous thrombosis) (H) [address] [place] [address] Social History Tobacco [...] you attend anabaptist or Patient refused 2020 synagogue services? Do [...] Comme nts CAPILLARY BLOOD Routine 10/28/2019 12:52 half-way current use Results for this COLLECTION PM CDT of anticoagulants with proce dure are in INR goal of 2.0-3.0 the resu lts section. INR Routine 10/28/2019 12:40 long term current use Re sults for this PM CDT of anticoagulants with proce dure are in INR goal of 2.0- 3.0 the results DVT (deep venous section. thrombosis) (H) documented in this encounter Results Capillary Blood Collection (10/28/2019 12:52 PM CDT) [facility] gist Method Time Signature Capillary Capillary 10/28/2019 [place] Blood collection 1:03 PM CDT CLINICS Collection [facility] Specimen Anatomical Collection Method Collection Time Receive d Time (Source) Location / / Volume Laterality 10/28/2019 12:52 10/28/2019 1:02 PM CDT PM CDT Froylan Louise MD LAB - LAB COMMUNICATION Performing Organization Address City/[facility]/ZIP Code Phon e Number [facility] [id number] [place] [address] (ABNORMAL) INR (10/28/2019 12:40 PM CDT) P athologist Signature INR 2.30 (H) 0.86 - 1.14 10/28/2019 [place] 1:04 PM CDT [facility] Comment: This test is intended for monitoring Cou madin therapy. ??Results are not accurate in patients with prolonged INR due to factor deficiency. Specimen Anatomical Collection Method Collection Time Receive d Time (Source) Location / / Volume Laterality Blood specimen 10/28/2019 12:40 0 1:02 (specimen) PM CDT PM CDT Froylan Louise MD LAB - BLOOD ORDERABLES Performing Organization Address City/[facility]/ZIP Code Phon e Number [facility] [id number] [place] [address] documented in this encounter Visit Diagnoses Diagnosis long term current use of anticoagulants with INR goal of 2.0-3.0 DVT (deep venous thrombosis) (H) Acute venous embolism and thrombosis of unspecified deep vessels of lower extremity documented in this encounter Care Teams Maxillofacial Pathology Relationship Specialty Start Date End Date Froylan Louise MD PCP - General Family Practice 02/22/14 Froylan Louise MD Assigned PCP 03/13/14 2 documented as of this encounter
--- OUTSIDE RECORDS SUMMARY | 2022-05-15 22:55 | XMS_ITS | Encounter Summary ---
:1955 Author Organization [facility] Address [address] [place] [address] Care Team Providers Name Role Phone Froylan Louise MD Primary Care Provider Unavailable Froylan Louise MD Unavailable Unavailable Encounter Details Date Type Department Care Team Description 08/23/2019 Orders Only [facility] Wily g term current use of anticoagulants with INR goal of 2.0-3.0; [facility] DVT (deep venous thrombosis) (H) [address] [place] [address] Social History Tobacco Use [...] you attend alevism or Patient refused 2020 orthodox services? Do [...] nts CAPILLARY BLOOD Routine 08/23/2019 3:32 PM terminal makeup operator current u se Results for this COLLECTION BUS TRANSPORTATION MANAGER of anticoagulants with proce dure are in INR goal of 2.0-3.0 the resu lts section. INR Routine 08/23/2019 3:32 PM long-term current use Results for this BUS TRANSPORTATION MANAGER of anticoagulants with proce dure are in INR goal of 2.0- 3.0 the results DVT (deep venous section. thrombosis) (H) documented in this encounter Results Capillary Blood Collection (08/23/2019 3:32 PM BUS TRANSPORTATION MANAGER) Patholo gist Method Time Signature Capillary Capillary 08/23/2019 [place] Blood collection 3:33 PM BUS TRANSPORTATION MANAGER CLINICS Collection [facility] Specimen Anatomical Collection Method Collection Time Receive d Time (Source) Location / / Volume Laterality 08/23/2019 3:32 PM 0 3:33 BUS TRANSPORTATION MANAGER PM BUS TRANSPORTATION MANAGER Froylan Louise MD LAB - LAB COMMUNICATION Performing Organization Address City/[facility]/ZIP [facility] Phon e Number [facility] [phone] [place] [address] (ABNORMAL) INR (08/23/2019 3:32 PM BUS TRANSPORTATION MANAGER) P athologist Signature INR 2.80 (H) 0.86 - 1.14 08/23/2019 [place] 3:42 PM BUS TRANSPORTATION MANAGER [facility] Comment: This test is intended for monitoring Cou madin therapy. ??Results are not accurate in patients with prolonged INR due to factor deficiency. Specimen Anatomical Collection Method Collection Time Receive d Time (Source) Location / / Volume Laterality Blood specimen 08/23/2019 3:32 PM 020 3:33 (specimen) BUS TRANSPORTATION MANAGER PM BUS TRANSPORTATION MANAGER Froylan Louise MD LAB - BLOOD ORDERABLES Performing Organization Address City/[facility]/ZIP [facility] Phon e Number [facility] [id number] [place] [address] documented in this encounter Visit Diagnoses Diagnosis long-term current use of anticoagulants with INR goal of 2.0-3.0 DVT (deep venous thrombosis) (H) Acute venous embolism and thrombosis of unspecified deep vessels of lower extremity documented in this encounter Care Teams Auto Specialty Services Manager Relationship Specialty Start Date End Date Froylan Louise MD PCP - General Family Practice 02/22/14 Froylan Louise MD Assigned PCP 03/13/14 2 documented as of this encounter
--- OUTSIDE RECORDS SUMMARY | 2022-05-15 22:55 | XMS_ITS | Encounter Summary ---
:1955 Author Organization [place] Address [address] [place] [address] Care Team Providers Name Role Phone Froylan Louise MD Primary Care Provider Unavailable Froylan Louise MD Unavailable Unavailable Reason for Visit Reason Onset Date Comments INR Followup 07/12/2019 Encounter Details Date Type Department Care Team Description 07/12/2019 Telephone [facility] Froylan Louise Ra, MD INR Followup [address] [address] Social History Tobacco Use [...] you attend zoroastrianism or Patient refused 2020 baptism services? Do [...] Clinic for any changes, questions or concerns. (#[phone]) OBJECTIVE: INR Date Value Ref Range Status [...] lab: Send INR reminders to: [facility] Comments: L MAKER FIBERGLASS Telephone Encounter - Estefanía Romano RN - 07/12/2019 4:10 PM CST Anticoagulation Management Unable to reach [place] today. Today's INR result of 2.2 is therapeutic (goal INR of 2.0-3.0). Result received from: Clinic Lab Follow up required to confirm warfarin dose taken and assess for changes Left message to continue current dose of warfarin tonight. 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
--- OUTSIDE RECORDS SUMMARY | 2022-05-15 22:55 | XMS_ITS | Encounter Summary ---
:1955 Author Organization [place] Address [address] [place] [address] Care Team Providers Name Role Phone Froylan [...] you attend amish or Patient refused 2020 yarsani services? Do [...] on filedocumented in this encounter Care Teams Compressor Mechanic Bus Relationship Specialty Start Date End Date Froylan Louise MD PCP - General Family Practice 02/22/14 Froylan Louise MD Assigned PCP 03/13/14 2 documented as of this encounter
--- OUTSIDE RECORDS SUMMARY | 2022-05-15 22:55 | XMS_ITS | Encounter Summary ---
:1955 Author Organization [place] Address [address] [place] [address] Care Team Providers Name Role Phone Froylan [...] you attend christianity or Patient refused 2020 evangelical services? Do [...] filedocumented in this encounter Care Teams Supervisor Lending Activities Relationship Specialty Start Date End Date Froylan Louise MD PCP - General Family Practice 02/22/14 Froylan Louise MD Assigned PCP 03/13/14 2 documented as of this encounter
--- OUTSIDE RECORDS SUMMARY | 2022-05-15 22:55 | XMS_ITS | Encounter Summary ---
:1955 Author Organization [place] Address [address] [place] [address] Care Team Providers Name Role Phone Froylan Louise MD Primary Care Provider Unavailable Froylan Louise MD Unavailable Unavailable Encounter Details Date Type Department Care Team Description 09/16/2019 Orders Only [facility] Wily g term current use of anticoagulants with INR goal of 2.0-3.0; [facility] DVT (deep venous thrombosis) (H) [address] [place] [address] Social History Tobacco Use [...] you attend worship or Patient refused 2020 tenriism services? Do [...] Comme nts INR Routine 09/16/2019 3:40 PM law office manager current use of Results for this CDT anticoagulants with INR proc edure are in goal of 2.0-3.0 the results DVT (deep venous section. thrombosis) (H) documented in this encounter Results (ABNORMAL) INR (09/16/2019 3:40 PM CDT) P athologist Signature INR 3.40 (H) 0.86 - 1.14 09/16/2019 [place] 3:51 PM CDT [facility] Comment: This test is intended for monitoring [...] Organization Address City/State/ZIP Code Phon e Number [facility] [address] 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
--- OUTSIDE RECORDS SUMMARY | 2022-05-15 22:55 | XMS_ITS | Encounter Summary ---
:1955 Author Organization [facility] Address [address] [place] [address] Care Team Providers Name Role Phone Froylan Louise MD Primary Care Provider Unavailable Froylan Louise MD Unavailable Unavailable Reason for Visit Reason Comments Medication Refill Encounter Details Date Type Department Care Team Description 09/05/2019 Refill [facility] Froylan Louise Ra, MD Medication Refill [address] [address] Social History Tobacco [...] you attend quaker or Patient refused 2020 buddhism services? Do [...] 09/06/2019 9:38 AM CDT Prescription approved per [facility] Refill Protocol. Wendi Lindsay RN, BSN documented in this encounter Plan of Treatment Upcoming Encounters Date Type Specialty Care Team Description 05/20/2022 Lab Lab documented as of this encounter Visit Diagnoses Diagnosis Lichen planus documented in this encounter Care Teams Operations Intern Relationship Specialty Start Date End Date Froylan Louise MD PCP - General Family Practice 02/22/14 Froylan Louise MD Assigned PCP 03/13/14 2 documented as of this encounter
--- OUTSIDE RECORDS SUMMARY | 2022-05-15 22:55 | XMS_ITS | Encounter Summary ---
:1955 Author Organization [place] Address [address] [place] [address] Care Team Providers Name Role Phone Froylan [...] you attend baptist or Patient refused 2020 orthodox services? Do [...] on filedocumented in this encounter Care Teams Chief Operator Synthesis Relationship Specialty Start Date End Date Froylan Louise MD PCP - General Family Practice 02/22/14 Froylan Louise MD Assigned PCP 03/13/14 2 documented as of this encounter
--- OUTSIDE RECORDS SUMMARY | 2022-05-15 22:55 | XMS_ITS | Encounter Summary ---
:1955 Author Organization [place] Address [address] [place] [address] Care Team Providers Name Role Phone Froylan Louise MD Primary Care Provider Unavailable Froylan Louise MD Unavailable Unavailable Encounter Details Date Type Department Care Team Description 06/21/2019 Orders Only [facility] Wily g term current use of anticoagulants with INR goal of 2.0-3.0; [facility] DVT (deep venous thrombosis) (H) [address] [place] [address] Social History Tobacco Use Types [...] you attend anglican or Patient refused 2020 restorationism services? Do [...] Comme nts CAPILLARY BLOOD Routine 06/21/2019 12:02 USP current use Results for this COLLECTION PM ENGINEERING LECTURER of anticoagulants with proce dure are in INR goal of 2.0-3.0 the resu lts section. INR Routine 06/21/2019 12:02 USP current use Re sults for this PM ENGINEERING LECTURER of anticoagulants with proce dure are in INR goal of 2.0- 3.0 the results DVT (deep venous section. thrombosis) (H) documented in this encounter Results Capillary Blood Collection (06/21/2019 12:02 PM ENGINEERING LECTURER) [facility] Method Time Signature Capillary Capillary 06/21/2019 [place] Blood collection 12:03 PM ENGINEERING LECTURER CLINICS Collection performed [place] Specimen Anatomical Collection Method Collection Time Receive d Time (Source) Location / / Volume Laterality 06/21/2019 12:02 06/21/2019 PM ENGINEERING LECTURER 12:03 PM ENGINEERING LECTURER Froylan Louise MD LAB - LAB COMMUNICATION Performing Organization Address [facility] Phon e Number [facility] [address] [place] [address] (ABNORMAL) INR (06/21/2019 12:02 PM ENGINEERING LECTURER) P athologist Signature INR 3.10 (H) 0.86 - 1.14 06/21/2019 [place] 12:12 PM ENGINEERING LECTURER [facility] Comment: This test is intended for monitoring Cou madin therapy. ??Results are not accurate in patients with prolonged INR due to factor deficiency. Specimen Anatomical Collection Method Collection Time Receive d Time (Source) Location / / Volume Laterality Blood specimen 06/21/2019 12:02 9 (specimen) PM ENGINEERING LECTURER 12:03 PM ENGINEERING LECTURER Froylan Louise MD LAB - BLOOD ORDERABLES Performing Organization Address [facility] Phon e Number [facility] [address] [place] [address] documented in this encounter Visit Diagnoses Diagnosis USP current use of anticoagulants with INR goal of 2.0-3.0 DVT (deep venous thrombosis) (H) Acute venous embolism and thrombosis of unspecified deep vessels of lower extremity documented in this encounter Care Teams Oyster Fisherman Relationship Specialty Start Date End Date Froylan Louise MD PCP - General Family Practice 02/22/14 Froylan Louise MD Assigned PCP 03/13/14 2 documented as of this encounter
--- OUTSIDE RECORDS SUMMARY | 2022-05-15 22:55 | XMS_ITS | Encounter Summary ---
:1955 Author Organization [place] Address [facility] [place] [address] Care Team Providers Name Role Phone Froylan Louise MD Primary Care Provider Unavailable Froylan Louise MD Unavailable Unavailable Reason for Referral Specialty Diagnoses / Procedures Referred By Contact Refer red To Contact Froylan Louise M D Quade, [place] [address] [facility] [address] [place] [address] [place] [id number] Referral ID Status Reason Start Date Expiration Date Visits Requ ested Visits Authorized Encounter Details Date Type Department Care Team Description 09/30/2019 Documentation Only [facility] Froylan Louise g-term (current) use of anticoagulants [Z79.01] (Primary Dx); Clinic Chhaya Dubose MD Chronic deep vein thrombosis (DVT) of lower extremity, unspecified laterality, unspecified vein (H) [address] [place] [address] Social History Tobacco Use Types [...] you attend sikhism or Patient refused 2020 tenriism services? Do [...] Name Type Priority Associated Diagnoses Order [facility] ANTICOAGULATION CLINIC Referral Routine Long-term (current ) [...] (H) documented in this encounter Care Teams Icer Machine Relationship Specialty Start Date End Date Froylan Louise MD PCP - General Family Practice 02/22/14 Froylan Louise MD Assigned PCP 03/13/14 2 documented as of this encounter
--- OUTSIDE RECORDS SUMMARY | 2022-05-15 22:55 | XMS_ITS | Encounter Summary ---
:1955 Author Organization [place] Address [address] [place] [address] Care Team Providers Name Role Phone Froylan Louise MD Primary Care Provider Unavailable Froylan Louise MD Unavailable Unavailable Reason for Visit Reason Onset Date Comments Refill Request 07/06/2019 predniSONE (DELTASON E) 20 MG tablet Encounter Details Date Type Department Care Team Description 07/06/2019 Refill [facility] Froylan Louise Ra y, Refill Request Chhaya VILLASEÑOR (predniSONE (DELTASONE) [address] [facility] 20 MG tablet) [place] [address] Social History Tobacco Use Types Packs/Day [...] you attend worship or Patient refused 2020 gnosticism services? Do [...] not request prednisone - Esthela Corea RN HANDLER ASSISTANT documented in this encounter Plan of Treatment Upcoming Encounters Date Type Specialty Care Team Description 05/20/2022 Lab Lab documented as of this encounter Visit Diagnoses Diagnosis Inflammatory arthritis Unspecified inflammatory polyarthropathy documented in this encounter Care Teams Requirements Manager Relationship Specialty Start Date End Date Froylan Louise MD PCP - General Family Practice 02/22/14 Froylan Louise MD Assigned PCP 03/13/14 2 documented as of this encounter
--- OUTSIDE RECORDS SUMMARY | 2022-05-15 22:55 | XMS_ITS | Encounter Summary ---
:1955 Author Organization [place] Address [address] [place] [address] Care Team Providers Name Role Phone Froylan Louise MD Primary Care Provider Unavailable Froylan Louise MD Unavailable Unavailable Reason for Visit Reason Comments Medication Refill Encounter Details Date Type Department Care Team Description 10/04/2019 Refill [facility] Froylan Louise Ra, MD Medication Refill [address] [address] Social History Tobacco Use [...] you attend lutheran or Patient refused 2020 jainism services? Do [...] PM CDT RX monitoring program ([place]) reviewed: ACCORDION REPAIRER reviewed- no concerns [place]MP profile: [email or web address] Controlled Substance Refill Request for Ambien Problem List Complete: No PROVIDER TO CONSIDER COMPLETION OF PROBLEM LIST AND OVERVIEW/CONTROLLED SUBSTANCE AGREEMENT Last Written Prescription Date: 04/30/2019 Last Fill Quantity: 30, # refills: 0 Last Office Visit with [facility] primary care provider: 06/10/2019 Future Office visit: [...] be electronically transmitted to pharmacy by provider [email or web address] ACCORDION REPAIRER checked in past 3 months? Yes 10/04/2019 documented in this encounter Plan of Treatment Upcoming Encounters Date Type Specialty Care Team Description 05/20/2022 Lab Lab documented as of this encounter Visit Diagnoses Diagnosis Insomnia, unspecified type documented in this encounter Care Teams Bobj Developer Relationship Specialty Start Date End Date Froylan Louise MD PCP - General Family Practice 02/22/14 Froylan Louise MD Assigned PCP 03/13/14 2 documented as of this encounter
--- OUTSIDE RECORDS SUMMARY | 2022-05-15 22:55 | XMS_ITS | Encounter Summary ---
:1955 Author Organization [place] Address [address] [place] [address] Care Team Providers Name Role Phone Froylan [...] 4 or more times a w [place] 05/25/2021 alcohol? How many drinks containing [...] attend jehovah's witness or Patient refused 2020 evangelical services? Do [...] on filedocumented in this encounter Care Teams Air And Water Tester Relationship Specialty Start Date End Date Froylan Louise MD PCP - General Family Practice 02/22/14 Froylan Louise MD Assigned PCP 03/13/14 2 documented as of this encounter
--- OUTSIDE RECORDS SUMMARY | 2022-05-15 22:55 | XMS_ITS | Encounter Summary ---
:1955 Author Organization [place] Address [address] [place] [address] Care Team Providers Name Role Phone Froylan Louise MD Primary Care Provider Unavailable Froylan Louise MD Unavailable Unavailable Reason for Visit Reason Onset Date Comments Refill Request 06/17/2019 Encounter Details Date Type Department Care Team Description [facility] Ra, MD Refill Request [address] [address] Social History Tobacco Use [...] you attend mosque or Patient refused 2020 mormon services? Do [...] shortness of breath. Wendi Lindsay RN, BSN TER PACK OPERATOR documented in this encounter Plan of Treatment Upcoming Encounters Date Type Specialty Care Team Description 05/20/2022 Lab Lab documented as of this encounter Visit Diagnoses Diagnosis Mild persistent asthma without complicat ion Unspecified asthma documented in this encounter Care Teams Hand Wrapper Operator Relationship Specialty Start Date End Date Froylan Louise MD PCP - General Family Practice 02/22/14 Froylan Louise MD Assigned PCP 03/13/14 2 documented as of this encounter
--- OUTSIDE RECORDS SUMMARY | 2022-05-15 22:55 | XMS_ITS | Encounter Summary ---
:1955 Author Organization [place] Address [address] [place] [address] Care Team Providers Name Role Phone Froylan [...] you attend lutheran or Patient refused 2020 mandaen services? Do [...] on filedocumented in this encounter Care Teams Professor Of Biology Relationship Specialty Start Date End Date Froylan Louise MD PCP - General Family Practice 02/22/14 Froylan Louise MD Assigned PCP 03/13/14 2 documented as of this encounter
--- OUTSIDE RECORDS SUMMARY | 2022-05-15 22:55 | XMS_ITS | Encounter Summary ---
:1955 Author Organization [place] Address [address] [place] [address] Care Team Providers Name Role Phone Froylan Louise MD Primary Care Provider Unavailable Froylan Louise MD Unavailable Unavailable Reason for Visit Reason Comments Medication Refill Encounter Details Date Type Department Care Team Description 06/29/2019 Refill [facility] Froylan Louise Ra, MD Medication Refill [address] [address] Social History Tobacco [...] containing 4 or more times a w [place] 05/25/2021 alcohol? How many drinks containing [...] you attend hoahaoism or Patient refused 2020 denominational services? Do [...] appt with rheumatology Wendi Lindsay RN, BSN MBLING MOTOR BUILDER documented in this encounter Plan of Treatment Upcoming Encounters Date Type Specialty Care Team Description 05/20/2022 Lab Lab documented as of this encounter Visit Diagnoses Diagnosis Inflammatory arthritis Unspecified inflammatory polyarthropathy documented in this encounter Care Teams Crayon Grader Relationship Specialty Start Date End Date Froylan Louise MD PCP - General Family Practice 02/22/14 Froylan Louise MD Assigned PCP 03/13/14 2 documented as of this encounter
--- OUTSIDE RECORDS SUMMARY | 2022-05-15 22:55 | XMS_ITS | Encounter Summary ---
:1955 Author Organization [place] Address [address] [place] [address] Care Team Providers Name Role Phone Froylan [...] you attend moravian or Patient refused 2020 rastafari services? Do [...] on filedocumented in this encounter Care Teams Circle Beveler Relationship Specialty Start Date End Date Froylan Louise MD PCP - General Family Practice 02/22/14 Froylan Louise MD Assigned PCP 03/13/14 2 documented as of this encounter
--- OUTSIDE RECORDS SUMMARY | 2022-05-15 22:55 | XMS_ITS | Encounter Summary ---
:1955 Author Organization [place] Address [address] [place] [address] Care Team Providers Name Role Phone Froylan Louise MD Primary Care Provider Unavailable Froylan Louise MD Unavailable Unavailable Reason for Visit Reason Onset Date Comments INR RESULTS 08/23/2019 Encounter Details Date Type Department Care Team Description 08/23/2019 Telephone [facility] Froylan Louise Ra, MD INR RESULTS [address] [address] Social History Tobacco Use [...] you attend yazdanism or Patient refused 2020 mormon services? Do [...] Clinic for any changes, questions or concerns. 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
--- OUTSIDE RECORDS SUMMARY | 2022-05-15 22:55 | XMS_ITS | Encounter Summary ---
:1955 Author Organization [place] Address [address] [place] [address] Care Team Providers Name Role Phone Froylan Louise MD Primary Care Provider Unavailable Froylan Louise MD Unavailable Unavailable Reason for Visit Reason Onset Date Comments INR RESULTS 06/21/2019 Encounter Details Date Type Department Care Team Description 06/21/[address] [facility] Froylan Louise Ra, MD INR RESULTS [address] [address] Social History Tobacco [...] Clinic for any changes, questions or concerns. 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
--- OUTSIDE RECORDS SUMMARY | 2022-05-15 22:55 | XMS_ITS | Encounter Summary ---
:1955 Author Organization [place] Address [address] [place] [address] Care Team Providers Name Role Phone Froylan Louise MD Primary Care Provider Unavailable Froylan Louise MD Unavailable Unavailable Reason for Visit Reason Onset Date Comments Anticoagulation 07/13/2019 Encounter Details Date Type Department Care Team Description 07/13/2019 Telephone [facility] Froylan Louise Ra, MD [address] [address] Social History Tobacco Use [...] you attend yarsani or Patient refused 2020 church services? Do [...] this encounter Miscellaneous Notes Telephone En[facility] - [facility] - 07/13/2019 12:14 PM CST Pt calling in to report he just broke his tooth at work and is on his way to the dentist. He is inquiring how being on warfarin would impact this. Advised pt there should be no changes to his warfarin,but to let the dentist know that he takes warfarin. No further questions at this time. RER TREE TAPPING documented in this encounter Plan of Treatment Upcoming Encounters Date Type Specialty Care Team Description 05/20/2022 Lab Lab documented as of this encounter Visit Diagnoses Not on filedocumented in this encounter Care Teams Inspector Watch Train Relationship Specialty Start Date End Date Froylan Louise MD PCP - General Family Practice 02/22/14 Froylan Louise MD Assigned PCP 03/13/14 2 documented as of this encounter
--- OUTSIDE RECORDS SUMMARY | 2022-05-15 22:55 | XMS_ITS | Encounter Summary ---
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 thrombosis) (H) documented in this encounter Results (ABNORMAL) INR (09/30/2019 2:24 PM CDT) P athologist Signature INR 2.80 (H) 0.86 - 1.14 09/30/2019 [place] 2:37 PM CDT [facility] Comment: [...] Phon e Number [facility] [address] 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
--- OUTSIDE RECORDS SUMMARY | 2022-05-15 22:55 | XMS_ITS | Encounter Summary ---
:1955 Author Organization [place] Address [address] [place] [address] Care Team Providers Name Role Phone Froylan Louise MD Primary Care Provider Unavailable Froylan Louise MD Unavailable Unavailable Reason for Visit Reason Comments Medication Refill Encounter Details Date Type Department Care Team Description 06/24/2019 Refill [facility] Froylan Louise Ra, MD Medication Refill [address] [address] Social History Tobacco Use [...] containing 4 or more times a w morongo 05/25/2021 alcohol? How many drinks containing alcohol [...] you attend restorationism or Patient refused 2020 muslim services? Do [...] Symbicort Please advise Wendi Lindsay RN, BSN RER PIE BAKERY documented in this encounter Plan of Treatment Upcoming Encounters Date Type Specialty Care Team Description 05/20/2022 Lab Lab documented as of this encounter Visit Diagnoses Diagnosis Mild persistent asthma without complicat ion Unspecified asthma documented in this encounter Care Teams Human Services Case Manager Relationship Specialty Start Date End Date Froylan Louise MD PCP - General Family Practice 02/22/14 Froylan Louise MD Assigned PCP 03/13/14 2 documented as of this encounter
--- OUTSIDE RECORDS SUMMARY | 2022-05-15 22:55 | XMS_ITS | Encounter Summary ---
:1955 Author Organization [place] Address [address] [place] [address] Care Team Providers Name Role Phone Froylan Louise MD Primary Care Provider Unavailable Froylan Louise MD Unavailable Unavailable Reason for Visit Reason Onset Date Comments INR Followup 09/16/2019 Encounter Details Date Type Department Care Team Description 09/16/2019 Telephone [facility] Froylan Louise Ra, MD INR Followup [address] [address] Social History Tobacco Use [...] you attend mormon or Patient refused 2020 jainism services? Do [...] Clinic for any changes, questions or concerns. 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
--- OUTSIDE RECORDS SUMMARY | 2022-05-15 22:56 | XMS_ITS | Encounter Summary ---
:1955 Author Organization [place] Address [address] [place] [address] Care Team Providers Name Role Phone Froylan Louise MD Primary Care Provider Unavailable Froylan Louise MD Unavailable Unavailable Reason for Visit Reason Comments Medication Refill Encounter Details Date Type Department Care Team Description 06/08/2019 Refill [facility] Froylan Louise Ra, MD Medication Refill [address] [address] Social History Tobacco Use [...] you attend jainism or Patient refused 2020 taoist services? Do [...] Miscellaneous Notes Telephone Encounter - [place], Esthela Conrda RN - 06/09/2019 7:45 AM CST Routing refill request to provider for review/approval because: Please review warning with terazosin and per JENNIFER pt wants to switch back to Qvar this would be new RX Esthela Corea, RN SCALER documented in this encounter Plan of Treatment Upcoming Encounters Date Type Specialty Care Team Description 05/20/2022 Lab Lab documented as of this encounter Visit Diagnoses Diagnosis Mild persistent asthma without complicat ion Unspecified asthma Benign prostatic hyperplasia with weak u rinary stream documented in this encounter Care Teams Assistant Teacher Primary Relationship Specialty Start Date End Date Froylan Louise MD PCP - General Family Practice 02/22/14 Froylan Louise MD Assigned PCP 03/13/14 2 documented as of this encounter
--- OUTSIDE RECORDS SUMMARY | 2022-05-15 22:56 | XMS_ITS | Encounter Summary ---
:1955 Author Organization [place] Address [address] [place] [address] Care Team Providers Name Role Phone [...] attend oriental orthodox or Patient refused 2020 muslim services? Do [...] filedocumented in this encounter Care Teams Service Team Leader Relationship Specialty Start Date End Date Froylan Louise MD PCP - General Family Practice 02/22/14 Froylan Lousie MD Assigned PCP 03/13/14 2 documented as of this encounter
--- OUTSIDE RECORDS SUMMARY | 2022-05-15 22:56 | XMS_ITS | Encounter Summary ---
:1955 Author Organization [place] Address [address] [place] [address] Care Team Providers Name Role Phone Froylan Louise MD Primary Care Provider Unavailable Froylan Louise MD Unavailable Unavailable Reason for Visit Reason Onset Date Comments INR RESULTS 04/09/2019 Encounter Details Date Type Department Care Team Description 04/09/2019 Telephone [facility] Froylan Louise Ra, MD INR RESULTS [address] [address] Social History Tobacco [...] you attend christianity or Patient refused 2020 orthodoxy services? Do [...] Clinic for any changes, questions or concerns. (#[phone]) OBJECTIVE: INR Date Value Ref Range Status [...] herapy documented in this encounter Care Teams Auto Parker Relationship Specialty Start Date End Date Froylan Louise MD PCP - General Family Practice 02/22/14 Froylan Louise MD Assigned PCP 03/13/14 2 documented as of this encounter
--- OUTSIDE RECORDS SUMMARY | 2022-05-15 22:56 | XMS_ITS | Encounter Summary ---
:1955 Author Organization [place] Address [address] [place] [address] Care Team Providers Name Role Phone Froylan Louise MD Primary Care Provider Unavailable Froylan Louise MD Unavailable Unavailable Encounter Details Date Type Department Care Team Description 04/09/2019 Orders Only [facility] Wily g term current use of anticoagulants with INR goal of 2.0-3.0; [facility] DVT (deep venous thrombosis) (H) [address] [place] [address] Social History Tobacco Use [...] nts CAPILLARY BLOOD Routine 04/09/2019 3:45 PM longterm current u se Results for this COLLECTION CDT of anticoagulants with proce dure are in INR goal of 2.0-3.0 the resu lts section. 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 thrombosis) (H) documented in this encounter Results Capillary Blood Collection (04/09/2019 3:45 PM CDT) [facility] gist Method Time Signature Capillary Unable to 04/09/2019 [place] Blood obtain 3:47 PM CDT [facility] Collection venipuncture, [place] capillary collection performed. Specimen Anatomical Collection Method Collection Time Receive d Time (Source) Location / / Volume Laterality 04/09/2019 3:45 PM 9 3:46 CDT PM CDT Froylan Louise MD LAB - LAB COMMUNICATION Performing Organization Address City/[facility]/ZIP Code Phon e Number [facility] [address] [address] [facility] [place] [address] (ABNORMAL) INR (04/09/2019 3:45 PM CDT) athologist Signature INR 2.10 (H) 0.86 - 1.14 04/09/2019 [place] 3:[address] [facility] Comment: This test is intended for monitoring Cou madin therapy. ??Results are not accurate in patients with prolonged INR due to factor deficiency. Specimen Anatomical Collection Method Collection Time Receive d Time (Source) Location / / Volume Laterality Blood specimen 04/09/2019 3:45 PM 019 3:46 (specimen) CDT PM CDT Froylan Louise MD LAB - BLOOD ORDERABLES Performing Organization Address City/[facility]/ZIP Code Phon e Number [facility] [id number] [address] [facility] 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
--- OUTSIDE RECORDS SUMMARY | 2022-05-15 22:56 | XMS_ITS | Encounter Summary ---
:1955 Author Organization [place] Address [address] [place] [address] Care Team Providers Name Role Phone Froylan Louise MD Primary Care Provider Unavailable Froylan Louise MD Unavailable Unavailable Reason for Visit Reason Comments Medication Refill terazosin (HYTRIN) Encounter Details Date Type Department Care Team Description 01/25/2019 Refill [facility] Froylan Louise Ra, Medication Refill Chhaya VILLASEÑOR (terazosin (HYTRIN)) [address] [place] [address] Social History Tobacco Use [...] you attend religious or Patient refused 2020 hindu services? Do [...] stream documented in this encounter Care Teams Manager Pacu Relationship Specialty Start Date End Date Froylan Louise MD PCP - General Family Practice 02/22/14 Froylan Louise MD Assigned PCP 03/13/14 2 documented as of this encounter
--- OUTSIDE RECORDS SUMMARY | 2022-05-15 22:56 | XMS_ITS | Encounter Summary ---
:1955 Author Organization [place] Address [address] [place] [address] Care Team Providers Name Role Phone Froylan Louise MD Primary Care Provider Unavailable Froylan Louise MD Unavailable Unavailable Reason for Visit Reason Onset Date Comments Refill Request 01/21/2019 [place] 160-4.5 G/ACT Inhaler Encounter Details Date Type Department Care Team Description 01/21/2019 [facility] Froylan Louise Ra, Refill Request Chhaya VILLASEÑOR (SYMB[place] 160-4.5 [address] [facility] MCG/ACT Inhal[place]) [place] [address] Social History Tobacco Use [...] you attend anabaptism or Patient refused 2020 gnosticism services? Do [...] 01/21/2019 10:16 AM CDT Prescription approved per [facility] Refill Protocol. Esthela Corea, RN Telephone Encounter [...] asthma documented in this encounter Care Teams Bung Driver Relationship Specialty Start Date End Date Froylan Luoise MD PCP - General Family Practice 02/22/14 Froylan Louise MD Assigned PCP 03/13/14 2 documented as of this encounter
--- OUTSIDE RECORDS SUMMARY | 2022-05-15 22:56 | XMS_ITS | Encounter Summary ---
:1955 Author Organization [place] Address [address] [place] [address] Care Team Providers Name Role Phone Froylan [...] you attend confucianism or Patient refused 2020 sabianist services? Do [...] in this encounter Care Teams Director Of Slot Operations Relationship Specialty Start Date End Date Froylan Louise MD PCP - General Family Practice 02/22/14 Froylan Louise MD Assigned PCP 03/13/14 2 documented as of this encounter
--- OUTSIDE RECORDS SUMMARY | 2022-05-15 22:56 | XMS_ITS | Encounter Summary ---
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 Do [...] location: Preferred lab: Send INR reminders to: [facility] Comments: See the Encounter Report to [...] nts INR POINT OF CARE Routine 02/26/2019 meat cooler current use o f Results for this anticoagulant therapy proced ure are in the results section . documented in this encounter Results (ABNORMAL) INR point of care (02/26/2019) athologist Signature INR Point of 2.7 (A) 0.86 - [facility] 1.[address] 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
--- OUTSIDE RECORDS SUMMARY | 2022-05-15 22:56 | XMS_ITS | Encounter Summary ---
:1955 Author Organization [place] Address [facility] [place] [address] Care Team Providers Name Role Phone Froylan Louise MD Primary Care Provider Unavailable Froylan Louise MD Unavailable Unavailable Reason for Visit Reason Comments Urgent Care Musculoskeletal Problem Possible pinch nerve pain fl are- Rt mid back x4 days. Hurts when turning on the Rt side Encounter Details Date Type Department Care Team Description 05/05/2019 Office Visit [facility] Radha Ledbetter Back musc le spasm Urgent Care Valentina Bonds PA-C (Primary Dx) [address] [place] [address] [id number] Social History Tobacco Use Types Packs/Day Years [...] you attend samaritan or Patient refused 2020 druze services? Do [...] Comments Blood Pressure 130/80 05/05/2019 2:47 PM COMBER TENDER Pulse 68 05/05/2019 2:47 PM COMBER TENDER Temperature 36.5 ??C (97.7 ??F) 05/05/2019 2:47 PM COMBER TENDER Respiratory Rate - - Oxygen Saturation 97% 05/05/2019 2:47 PM COMBER TENDER Inhaled Oxygen Concentration - - Weight - - Height - - Body Mass Index - - documented in this encounter Patient Instructions Patient InstructionsRadha Ledbetter PA-C - 05/05/2019 2:10 PM COMBER TENDER Tomorrow take medication x 3 times. Alternate heat and ice. Tylenol as needed for pain ER TENDER documented in this encounter Progress Notes Radha Ledbetter PA-C - 05/05/2019 2:10 PM CST SUBJECTIVE: Virgil Christine is a 63 year old male presenting with a chief complaint of Chief Complaint Patient presents with ??? Urgent Care ??? Musculoskeletal Problem Possible pinch nerve pain flare- Rt mid back x4 days. Hurts when turning on the Rt side He is an established patient of [facility]. Back Pain Onset of symptoms was 4 [...] and ice. Tylenol as needed for pain ER TENDER documented in this encounter Plan of Treatment Upcoming Encounters Date Type Specialty Care Team Description 05/20/2022 Lab Lab documented as of this encounter Visit Diagnoses Diagnosis Back muscle spasm - Primary Other symptoms referable to back documented in this encounter Care Teams Lead Enterprise Architect Relationship Specialty Start Date End Date Froylan Louise MD PCP - General Family Practice 02/22/14 Froylan Louise MD Assigned PCP 03/13/14 2 documented as of this encounter
--- OUTSIDE RECORDS SUMMARY | 2022-05-15 22:56 | XMS_ITS | Encounter Summary ---
:1955 Author Organization [place] Address [address] [place] [address] Care Team Providers Name Role Phone Froylan Louise MD Primary Care Provider Unavailable Froylan Louise MD Unavailable Unavailable Reason for Visit Reason Onset Date Comments Refill Request 04/12/2019 warfarin (COUMADIN) 5 MG tablet Encounter Details Date Type Department Care Team Description 04/12/2019 Refill [facility] Froylan Louise Ra y, Refill Request (warfarin Chhaya VILLASEÑOR (COUMADIN) 5 MG tablet) [address] [place] [address] Social History Tobacco Use [...] containing 4 or more times a w [place] 05/25/2021 alcohol? How many drinks containing alcohol [...] you attend scientologist or Patient refused 2020 yazidism services? Do [...] mg all other days Prescription approved per [facility] Refill Protocol. Rebecca Dalton RN Anticoagulation Nurse - [facility], [place] Telephone Encounter - Carlos Alberto Black - [...] (H) documented in this encounter Care Teams Customer Service Attendant Relationship Specialty Start Date End Date Froylan Louise MD PCP - General Family Practice 02/22/14 Froylan Louise MD Assigned PCP 03/13/14 2 documented as of this encounter
--- OUTSIDE RECORDS SUMMARY | 2022-05-15 22:56 | XMS_ITS | Encounter Summary ---
:1955 Author Organization [place] Address [address] [place] [address] Care Team Providers Name Role Phone Froylan Louise MD Primary Care Provider Unavailable Froylan Louise MD Unavailable Unavailable Reason for Visit Reason Onset Date Comments INR RESULTS 05/31/2019 Encounter Details Date Type Department Care Team Description 05/31/2019 Telephone [facility] Froylan Louise Ra, MD INR RESULTS [address] [address] Social History Tobacco Use [...] containing 4 or more times a w [place] 05/25/2021 alcohol? How many drinks containing alcohol [...] attend oriental orthodox or Patient refused 2020 nondenominational services? [...] Elizabeth Livingston RN - 05/31/2019 2:06 PM TEAM ASSISTANT ANTICOAGULATION MANAGEMENT Patient Name: Virgil Christine Date: [...] Clinic for any changes, questions or concerns. (#[phone]) OBJECTIVE: INR Date Value Ref Range Status [...] Send INR reminders to: [facility] Comments: ASSISTANT documented in this encounter Plan of Treatment Upcoming Encounters Date Type Specialty Care Team Description 05/20/2022 Lab Lab documented as of this encounter Visit Diagnoses Diagnosis roasterman current use of anticoagulant t herapy documented in this encounter Care Teams Egg Worker Relationship Specialty Start Date End Date Froylan Louise MD PCP - General Family Practice 02/22/14 Froylan Louise MD Assigned PCP 03/13/14 2 documented as of this encounter
--- OUTSIDE RECORDS SUMMARY | 2022-05-15 22:56 | XMS_ITS | Encounter Summary ---
:1955 Author Organization [place] Address [address] [place] [address] Care Team Providers Name Role Phone Froylan [...] you attend anabaptism or Patient refused 2020 yazidism services? Do [...] on filedocumented in this encounter Care Teams Dowel Machine Operator Relationship Specialty Start Date End Date Froylan Louise MD PCP - General Family Practice 02/22/14 Froylan Louise MD Assigned PCP 03/13/14 2 documented as of this encounter
--- OUTSIDE RECORDS SUMMARY | 2022-05-15 22:56 | XMS_ITS | Encounter Summary ---
:1955 Author Organization [place] Address [address] [place] [address] Care Team Providers Name Role Phone Froylan Louise MD Primary Care Provider Unavailable Froylan Louise MD Unavailable Unavailable Reason for Visit Reason Onset Date Comments Referral 06/02/2019 Rheum ref/pt schedul ed elsewhere - pt declined Encounter Details Date Type Department Care Team Description 06/02/2019 Telephone [facility] Unknown, Provider Refer [facility] (Rheum ref/pt Rheumatology Clinic schedule d elsewhere - [place] pt declined) [address] [place] [address] Social History Tobacco Use Types [...] you attend rastafari or Patient refused 2020 church services? Do [...] on 07/15/19 at [facility]. RN Telephone Encounter - Jovita Walton - 07/06/2019 4:27 PM CST LVM for patient to call and schedule. RN Telephone Encounter - Bear Arreola RN - [...] disease versus other. JORGE Yang RN Rheumatology Coppersmith Apprentice [facility] RN Telephone Encounter - Justyna Miller - 06/02/2019 10:58 AM CST [facility] Phone Message May a detailed message be left on voicemail: no Reason for Call: Other: EXHAUST EMISSIONS INSPECTOR for Rheumatology for Inflammatory arthritis [M19.90].referred by Dr. Louise. Rec/ref in [employer] Action Taken: Message routed to: [facility] Rheumatology RN documented in this encounter Plan of Treatment Upcoming Encounters Date Type Specialty Care Team Description 05/20/2022 Lab Lab documented as of this encounter Visit Diagnoses Not on filedocumented in this encounter Care Teams Data Warehouse Consultant Relationship Specialty Start Date End Date Froylan Louise MD PCP - General Family Practice 02/22/14 Froylan Louise MD Assigned PCP 03/13/14 2 documented as of this encounter
--- OUTSIDE RECORDS SUMMARY | 2022-05-15 22:56 | XMS_ITS | Encounter Summary ---
:1955 Author Organization [place] Address [address] [place] [address] Care Team Providers Name Role Phone Froylan [...] you attend mandaeism or Patient refused 2020 worship services? Do [...] filedocumented in this encounter Care Teams Marketing Information Analyst Relationship Specialty Start Date End Date Froylan Louise MD PCP - General Family Practice 02/22/14 Froylan Louise MD Assigned PCP 03/13/14 2 documented as of this encounter
--- OUTSIDE RECORDS SUMMARY | 2022-05-15 22:56 | XMS_ITS | Encounter Summary ---
:1955 Author Organization [place] Address [address] [place] [address] Care Team Providers Name Role Phone Froylan Louise MD Primary Care Provider Unavailable Froylan Louise MD Unavailable Unavailable Reason for Visit Reason Onset Date Comments INR RESULTS 06/07/2019 Encounter Details Date Type Department Care Team Description 06/07/2019 Telephone [facility] Froylan Louise Ra, MD INR RESULTS [address] [address] Social History Tobacco Use [...] you attend adventism or Patient refused 2020 religion services? Do [...] wasscheduled for 06/24/18 at 4 pm at [facility] and was educated that 1 week is the recommendation dueto having the prednisone interaction Education provided: Yes: effect of prednisone on warfarin and inflammation Virgil verbalizes understanding and agrees to warfarin dosing plan. Instructed to call the Anticoagulation Clinic for any changes, questions or concerns. (#[phone]) OBJECTIVE: INR Date Value Ref Range Status [...] lab: Send INR reminders to: [facility] Comments: LOPE MACHINE OPERATOR documented in this encounter Plan of Treatment Upcoming Encounters Date Type Specialty Care Team Description 05/20/2022 Lab Lab documented as of this encounter Visit Diagnoses Diagnosis roasterman current use of anticoagulant t herapy documented in this encounter Care Teams Bench Jeweler Relationship Specialty Start Date End Date Froylan Louise MD PCP - General Family Practice 02/22/14 Froylan Louise MD Assigned PCP 03/13/14 2 documented as of this encounter
--- OUTSIDE RECORDS SUMMARY | 2022-05-15 22:56 | XMS_ITS | Encounter Summary ---
:1955 Author Organization [place] Address [address] [place] [address] Care Team Providers Name Role Phone Froylan Louise MD Primary Care Provider Unavailable Froylan Louise MD Unavailable Unavailable Reason for Visit Reason Onset Date Comments Panel Management 04/02/2019 colon cancer screeni ng Encounter Details Date Type Department Care Team Description 04/02/2019 Telephone [facility] Froylan Louise Pane l Management (colon Clinic [place] cancer screening ) [address] [place] [address] Social History Tobacco Use Types [...] you attend mu-ism or Patient refused 2020 mormonism services? Do [...] 9:22 AM CDT Sent letter. Carolin Dawson Bar Machine Operator Multiple Spindle documented in this encounter Plan of Treatment Upcoming Encounters Date Type Specialty Care Team Description 05/20/2022 Lab Lab documented as of this encounter Visit Diagnoses Not on filedocumented in this encounter Care Teams Acute Dialysis Registered Nurse Relationship Specialty Start Date End Date Froylan Louise MD PCP - General Family Practice 02/22/14 Froylan Louise MD Assigned PCP 03/13/14 2 documented as of this encounter
--- OUTSIDE RECORDS SUMMARY | 2022-05-15 22:56 | XMS_ITS | Encounter Summary ---
:1955 Author Organization [place] Address [address] [place] [address] Care Team Providers Name Role Phone Froylan [...] on filedocumented in this encounter Care Teams Brick Loader Relationship Specialty Start Date End Date Froylan Louise MD PCP - General Family Practice 02/22/14 Froylan Louise MD Assigned PCP 03/13/14 2 documented as of this encounter
--- OUTSIDE RECORDS SUMMARY | 2022-05-15 22:56 | XMS_ITS | Encounter Summary ---
:1955 Author Organization [place] Address [address] [place] [address] Care Team Providers Name Role Phone Froylan Louise MD Primary Care Provider Unavailable Froylan Louise MD Unavailable Unavailable Encounter Details Date Type Department Care Team Description 05/31/2019 Orders Only [facility] Wily g term current use of anticoagulants with INR goal of 2.0-3.0; [facility] DVT (deep venous thrombosis) (H) [address] [place] [address] Social History Tobacco [...] nts CAPILLARY BLOOD Routine 05/31/2019 1:44 PM residential current u se Results for this COLLECTION HYDROGEN POWER PLANT ENGINEER of anticoagulants with proce dure are in INR goal of 2.0-3.0 the resu lts section. INR Routine 05/31/2019 1:44 PM asset card clerk current use Results for this HYDROGEN POWER PLANT ENGINEER of anticoagulants with proce dure are in INR goal of 2.0- 3.0 the results DVT (deep venous section. thrombosis) (H) documented in this encounter Results Capillary Blood Collection (05/31/2019 1:44 PM HYDROGEN POWER PLANT ENGINEER) Patholo gist Method Time Signature Capillary Capillary 05/31/2019 [place] Blood collection 1:58 PM HYDROGEN POWER PLANT ENGINEER CLINICS Collection [facility] Specimen Anatomical Collection Method Collection Time Receive d Time (Source) Location / / Volume Laterality 05/31/2019 1:44 PM 9 1:45 HYDROGEN POWER PLANT ENGINEER PM HYDROGEN POWER PLANT ENGINEER Froylan Louise MD LAB - LAB COMMUNICATION Performing Organization Address City/[facility] Phon e Number [facility] [address] [place] [address] (ABNORMAL) INR (05/31/2019 1:44 PM HYDROGEN POWER PLANT ENGINEER) P athologist Signature INR 2.40 (H) 0.86 - 1.14 05/31/2019 [place] 1:57 PM HYDROGEN POWER PLANT ENGINEER [facility] Comment: This test is intended for monitoring Cou madin therapy. ??Results are not accurate in patients with prolonged INR due to factor deficiency. Specimen Anatomical Collection Method Collection Time Receive d Time (Source) Location / / Volume Laterality Blood specimen 05/31/2019 1:44 PM 019 1:45 (specimen) HYDROGEN POWER PLANT ENGINEER PM HYDROGEN POWER PLANT ENGINEER Froylan Louise MD LAB - BLOOD ORDERABLES Performing Organization Address [facility] Phon e Number [facility] [phone] [place] [address] documented in this encounter Visit Diagnoses Diagnosis residential current use of anticoagulants with INR goal of 2.0-3.0 DVT (deep venous thrombosis) (H) Acute venous embolism and thrombosis of unspecified deep vessels of lower extremity documented in this encounter Care Teams Rn Referral Relationship Specialty Start Date End Date Froylan Louise MD PCP - General Family Practice 02/22/14 Froylan Louise MD Assigned PCP 03/13/14 2 documented as of this encounter
--- OUTSIDE RECORDS SUMMARY | 2022-05-15 22:56 | XMS_ITS | Encounter Summary ---
:1955 Author Organization [place] Address [address] [place] [address] Care Team Providers Name Role Phone Froylan Louise MD Primary Care Provider Unavailable Froylan Louise MD Unavailable Unavailable Encounter Details Date Type Department Care Team Description 02/09/2019 Anticoagulation Therapy [facility] marine oil terminal superintendent current use Visit Clinic [facility] [id number] [place] [address] Social History Tobacco Use Types Packs/Day [...] location: Preferred lab: Send INR reminders to: [facility] Comments: See the Encounter Report to [...] nts INR POINT OF CARE Routine 02/09/2019 half-way current use o f Results for this anticoagulant therapy proced ure are in the results section . documented in this encounter Results (ABNORMAL) INR point of care (02/09/2019) athologist Signature INR Point of 1.8 (A) 0.86 - [facility] 1.14 [facility] Specimen (Source) Anatomical Location Collection Method / Collectio n Time Received Time / Laterality Volume 02/09/2019 Froylan Louise MD LAB - BLOOD ORDERABLES Performing Organization Address City/State/ZIP Code Phon e Number [facility] [address] [place] [address] documented in this encounter Visit Diagnoses Diagnosis marine oil terminal superintendent current use of anticoagulant t herapy documented in this encounter Care Teams Brand Mgr Relationship Specialty Start Date End Date Froylan Louise MD PCP - General Family Practice 02/22/14 Froylan Louise MD Assigned PCP 03/13/14 2 documented as of this encounter
--- OUTSIDE RECORDS SUMMARY | 2022-05-15 22:56 | XMS_ITS | Encounter Summary ---
:1955 Author Organization [place] Address [address] [place] [address] Care Team Providers Name Role Phone Froylan [...] containing 4 or more times a w [place] 05/25/2021 alcohol? How many drinks containing [...] you attend confucianism or Patient refused 2020 presybeterian services? Do [...] on filedocumented in this encounter Care Teams Ambulatory Care Coordinator Relationship Specialty Start Date End Date Froylan Louise MD PCP - General Family Practice 02/22/14 Froylan Louise MD Assigned PCP 03/13/14 2 documented as of this encounter
--- OUTSIDE RECORDS SUMMARY | 2022-05-15 22:56 | XMS_ITS | Encounter Summary ---
:1955 Author Organization [place] Address [address] [place] [address] Care Team Providers Name Role Phone Froylan Louise MD Primary Care Provider Unavailable Froylan Louise MD Unavailable Unavailable Reason for Visit Reason Onset Date Comments Refill Request 02/09/2019 predniSONE (DELTASON E) 20 MG tablet Encounter Details Date Type Department Care Team Description [facility], [facility]ill Request Demetra Correa MD (predniSONE (DELTASONE) [id number] [facility] 20 MG tablet) [place] [phone] Social History Tobacco Use Types Packs/Day Years [...] you attend denominational or Patient refused 2020 pentecostal services? Do [...] Drug not on the [facility], P or [facility] refill protocol or controlled substance Carlos Alberto Black XRT documented in this encounter Plan of Treatment Upcoming Encounters Date Type Specialty Care Team Description 05/20/2022 Lab Lab documented as of this encounter Visit Diagnoses Diagnosis Inflammatory arthritis Unspecified inflammatory polyarthropathy documented in this encounter Care Teams Pharmacy Scheduler Relationship Specialty Start Date End Date Froylan Louise MD PCP - General Family Practice 02/22/14 Froylan Louise MD Assigned PCP 03/13/14 2 documented as of this encounter
--- OUTSIDE RECORDS SUMMARY | 2022-05-15 22:56 | XMS_ITS | Encounter Summary ---
:1955 Author Organization [place] Address [address] [place] [address] Care Team Providers Name Role Phone Froylan Louise MD Primary Care Provider Unavailable Froylan Louise MD Unavailable Unavailable Reason for Visit Reason Onset Date Comments INR RESULTS 05/14/2019 Encounter Details Date Type Department Care Team Description 05/14/2019 Telephone [facility] Froylan Louise Ra, MD INR RESULTS [address] [phone] Social History Tobacco Use [...] you attend quaker or Patient refused 2020 rastafari services? Do [...] Clinic for any changes, questions or concerns. (#[phone]) OBJECTIVE: INR Date Value Ref Range Status [...] Hilda Burch RN (05/14/2019) Next INR check: 05/31/2019 Priority: High Target end date: Indications Long-term (current) use of anticoagulants [Z79.01] [Z79.01] Embolism and thrombosis (H) (Resolved) [I74.9] Anticoagulation Episode Summary INR check location: Preferred lab: Send INR reminders to: [facility] Comments: PING PRESS TENDER documented in this encounter Plan of Treatment Upcoming Encounters Date Type Specialty Care Team Description 05/20/2022 Lab Lab documented as of this encounter Visit Diagnoses Diagnosis exterminator helper current use of anticoagulant t herapy documented in this encounter Care Teams Director Enterprise Data Architecture Relationship Specialty Start Date End Date Froylan Louise MD PCP - General Family Practice 02/22/14 Froylan Louise MD Assigned PCP 03/13/14 2 documented as of this encounter
--- OUTSIDE RECORDS SUMMARY | 2022-05-15 22:56 | XMS_ITS | Encounter Summary ---
:1955 Author Organization [place] Address [address] [place] [address] Care Team Providers Name Role Phone Froylan [...] you attend hoahaoism or Patient refused 2020 confucianism services? Do [...] on filedocumented in this encounter Care Teams Diabetes Educator Relationship Specialty Start Date End Date Froylan Louise MD PCP - General Family Practice 02/22/14 Froylan Louise MD Assigned PCP 03/13/14 2 documented as of this encounter
--- OUTSIDE RECORDS SUMMARY | 2022-05-15 22:56 | XMS_ITS | Encounter Summary ---
:1955 Author Organization [place] Address [address] [place] [address] Care Team Providers Name Role Phone Froylan [...] Date Type Department Care Team Description 02/15/2019 [facility] Froylan Louise Ra, MD Call Back (INR) [place] [id number] [place] [phone] Social History Tobacco Use Types [...] you attend caodaism or Patient refused 2020 baptism services? Do [...] to discuss INR please call back at [phone] Marina Randhawa-Patient Rep documented in this encounter Plan of Treatment Upcoming Encounters Date Type Specialty Care Team Description 05/20/2022 Lab Lab documented as of this encounter Visit Diagnoses Not on filedocumented in this encounter Additional Health Concerns Infection Onset Date Last Indicated Resolved Time Rule Out COVID-19 10/31/2019 10/31/2019 11/01/2019 1:0 8 PM CDT documented as of this encounter Care Teams Electronics Assembler Relationship Specialty Start Date End Date Froylan Louise MD PCP - General Family Practice 02/22/14 So Dodd MD PCP - General Family Medicine 01/10/22 01/17/22 [id number] [place] [address] Froylan Louise MD PCP - General Family Medicine 01/18/22 So Dodd MD PCP - General Family Medicine 02/21/22 [address] [address] [place], [place] [id number] Froylan Louise MD Assigned PCP 03/13/14 2 Esthela Corea, RN Personal Advocate & Liaison Family Medicine 10/16 (PAL) So Dodd MD Assigned PCP 01/05/22 [address] [place], [place] [id number] documented as of this encounter
--- OUTSIDE RECORDS SUMMARY | 2022-05-15 22:56 | XMS_ITS | Encounter Summary ---
:1955 Author Organization [place] Address [address] [place] [address] Care Team Providers Name Role Phone Froylan Louise MD Primary Care Provider Unavailable Froylan Louise MD Unavailable Unavailable Reason for Visit Reason Comments Medication Refill zolpidem ER (AMBIEN CR) 12.5 MG CR tablet [ Encounter Details Date Type Department Care Team Description 04/29/2019 Refill [facility] Froylan Louise Ra, Medication Refill Chhaya VILLASEÑOR (zolpidem ER (AMBIEN CR) [id number] [facility] 12.5 MG CR tablet [) [place] [address] Social History Tobacco Use [...] you attend hoahaoism or Patient refused 2020 rastafarian services? Do [...] AM CST RX monitoring program ([place]) reviewed: SALES SERVICE TECHNICIAN reviewed- no concerns He is over due for med f/u but scheduled for 06/11 Last filled # 30 Esthela Corea RN D BANK CALENDAR CONTROL CLERK Telephone Encounter - Arleen Vidal RRT - 04/29/2019 9:28 PM CST Controlled Substance Refill Request for zolpidem ER (AMBIEN CR) 12.5 MG CR tablet [ Problem List Complete: No PROVIDER TO CONSIDER COMPLETION OF PROBLEM LIST AND OVERVIEW/CONTROLLED SUBSTANCE AGREEMENT Last Written Prescription Date: 12/23/2018 Last Fill Quantity: 30, # refills: 0 Last Office Visit with [facility] primary care provider: 01/09/2019 Future Office visit: Controlled substance agreement: Encounter-Level CSA: There are no encounter-level csa. Patient-Level CSA: There are no patient-level csa. Last Urine Drug Screen: No results found for: CDAUT, No results found for: COMDAT, No results found for: THC13, PCP13, COC13, MAMP13, OPI13, AMP13, BZO13, TCA13, MTD13, BAR13, OXY13, PPX13, BUP13 Processing: Patient will pick remover in clinic [email or web address] SALES SERVICE TECHNICIAN checked in past 3 months? No, route to RN D BANK CALENDAR CONTROL CLERK documented in this encounter Plan of Treatment Upcoming Encounters Date Type Specialty Care Team Description 05/20/2022 Lab Lab documented as of this encounter Visit Diagnoses Diagnosis Insomnia, unspecified type documented in this encounter Care Teams Cook Larder Relationship Specialty Start Date End Date Froylan Louise MD PCP - General Family Practice 02/22/14 Froylan Louise MD Assigned PCP 03/13/14 2 documented as of this encounter
--- OUTSIDE RECORDS SUMMARY | 2022-05-15 22:56 | XMS_ITS | Encounter Summary ---
:1955 Author Organization [place] Address [address] [place] [address] Care Team Providers Name Role Phone Froylan Louise MD Primary Care Provider Unavailable Froylan Louise MD Unavailable Unavailable Encounter Details Date Type Department Care Team Description 05/14/2019 Orders Only [facility] Wily g term current use of anticoagulants with INR goal of 2.0-3.0; [facility] DVT (deep venous thrombosis) (H) [id number] [place] [address] Social History Tobacco [...] you attend evangelical or Patient refused 2020 rastafarian services? Do [...] Comme nts INR Routine 05/14/2019 1:35 PM rn long term care current use of Results for this [facility] [place] anticoagulants with INR proc edure are in goal of 2.0-3.0 the results DVT (deep venous section. thrombosis) (H) documented in this encounter Results (ABNORMAL) INR (05/14/2019 1:35 PM [facility] [place]) athologist Signature INR 1.60 (H) 0.86 - 1.14 05/14/2019 [place] 1:51 PM [facility] Comment: This test is intended for monitoring Cou madin therapy. ??Results are not accurate in patients with prolonged INR due to factor deficiency. Specimen Anatomical Collection Method Collection Time Receive d Time (Source) Location / / Volume Laterality Blood specimen 05/14/2019 1:35 PM 019 1:41 (specimen) [facility] [place] PM [facility] [place] Froylan Louise MD LAB - BLOOD ORDERABLES Performing Organization Address City/State/ZIP Code Phon e Number [facility] [id number] [place] [address] documented in this encounter Visit Diagnoses Diagnosis rn long term care current use of anticoagulants with INR goal of 2.0-3.0 DVT (deep venous thrombosis) (H) Acute venous embolism and thrombosis of unspecified deep vessels of lower extremity documented in this encounter Care Teams Pulp Machine Operator Relationship Specialty Start Date End Date Froylan Louise MD PCP - General Family Practice 02/22/14 Froylan Louise MD Assigned PCP 03/13/14 2 documented as of this encounter
--- OUTSIDE RECORDS SUMMARY | 2022-05-15 22:56 | XMS_ITS | Encounter Summary ---
:1955 Author Organization [place] Address [facility] [address] Care Team Providers Name Role Phone Froylan Louise MD Primary Care Provider Unavailable Froylan Louise MD Unavailable Unavailable Reason for Referral Consultation (Routine) - Closed Specialty Diagnoses / Procedures Referred By Contact Refer red To Contact Diagnoses Inflammatory arthritis Froylan Louise MD MULTIPLE LOCATIONS [address] [place] [address] Referral ID Status Reason Start Date Expiration Date Visits Requ ested Visits Authorized [id number] Closed 05/31/2019 05/30/2020 1 1 NT GUN OPERATOR Reason for Visit Reason Comments Recheck Medication Encounter Details Date Type Department Care Team Description 05/31/2019 Office Visit [facility] Froylan Louise Inflammat ory arthritis (Primary Dx); Clinic Chhaya Dubose MD Chronic deep vein thrombosis (DVT) of lower extremity, unspecified laterality, unspecified vein (H); [address] [facility] Anticardiolipin antibody pos itive; [place], [place] Postthrombotic syndrome; [id number] Other ulcerative colitis wit hout complication (H); [phone] Mild persistent asthma without complication; Screening for [...] you attend taoist or Patient refused 2020 voodoo services? Do [...] Comments Blood Pressure 136/74 05/31/2019 1:06 PM CEMENT GUN OPERATOR Pulse 60 05/31/2019 1:06 PM CEMENT GUN OPERATOR Temperature 36.6 ??C (97.8 ??F) 05/31/2019 1:06 PM CEMENT GUN OPERATOR Respiratory Rate 17 05/31/2019 1:06 PM CEMENT GUN OPERATOR Oxygen Saturation 98% 05/31/2019 1:06 PM CEMENT GUN OPERATOR Inhaled Oxygen Concentration - - Weight 108 kg (238 lb) 05/31/2019 1:06 PM CEMENT GUN OPERATOR Height 179.1 cm (5' 10.5) 05/31/2019 1:06 PM CEMENT GUN OPERATOR Body Mass Index 33.67 05/31/2019 1:06 PM CEMENT GUN OPERATOR documented in this encounter Progress Notes [...] behalf by Sofia Altman, a trained medical care administrator. The creation of this document is based on the provider's statements to the medical care administrator. Sofia Altman 1:15 PM May 31, 2019 [...] joints Diagnostic Test Results: Labs reviewed in [facility] Results for orders placed or performed in [...] in this document, created by the medical care administrator for me, accurately reflects the services I personally performed and the decisions made by me. I have reviewed and approved this document for accuracy prior to leaving the patient care area. May 31, 2019 1:41 PM Froylan Louise MD [facility] NT GUN OPERATOR documented in this encounter Plan of [...] for Res ults for this COMBO PM CEMENT GUN OPERATOR screening for HIV procedure are in the results section. CBC WITH PLATELETS & Routine 05/31/2019 1:43 Inflammatory arth ritis Results for this DIFFERENTIAL PM CEMENT GUN OPERATOR procedure are i n the results section. VITAMIN D DEFICIENCY Routine 05/31/2019 1:43 Inflammatory arth ritis Results for this SCREENING PM CEMENT GUN OPERATOR procedure are i n the results section. TSH WITH FREE T4 Routine 05/31/2019 1:43 Inflammatory arthriti s Results for this REFLEX PM CEMENT GUN OPERATOR procedure are i n the results section. PROSTATE SPECIFIC Routine 05/31/2019 1:43 Screening for prosta te Results for this ANTIGEN SCREEN PM CEMENT GUN OPERATOR cancer procedure are in the results section. ERYTHROCYTE Routine 05/31/2019 1:43 Inflammatory arthritis Re sults for this SEDIMENTATION RATE PM CEMENT GUN OPERATOR procedure are in AUTO the results section. CRP INFLAMMATION Routine 05/31/2019 1:43 Inflammatory arthriti s Results for this PM CEMENT GUN OPERATOR procedure are i n the results section. COMPREHENSIVE Routine 05/31/2019 1:43 Postthrombotic Results f or this METABOLIC PANEL PM CEMENT GUN OPERATOR syndrome procedure ar e in the results section. VITAMIN B12 Routine 05/31/2019 1:43 Inflammatory arthritis Re sults for this PM CEMENT GUN OPERATOR procedure are i n the results section. documented in this encounter Results HIV Antigen Antibody Combo (05/31/2019 1:43 PM CEMENT GUN OPERATOR) Patholo gist Method Time Signature HIV Antigen Nonreactive NR^Nonrea 06/01/2019 [facility] Antibody ctive 10:57 AM [facility] MEDICAL Combo [facility] Comment: HIV-1 p24 Ag & HIV-1/HIV-2 Ab N ot Detected Specimen Anatomical Collection Method Collection Time Receive d Time (Source) Location / / Volume Laterality Blood specimen 05/31/2019 1:43 PM 019 1:44 (specimen) CEMENT GUN OPERATOR PM CEMENT GUN OPERATOR Froylan Louise MD LAB - BLOOD ORDERABLES Performing Organization Address City/State/ZIP Code Phon e Number [facility] [address] [place], [place] [id number] [place] [address] Vitamin D Deficiency (05/31/2019 1:43 PM CEMENT GUN OPERATOR) P athologist Signature Vitamin D 35 20 - 75 06/01/2019 [facility] Deficiency ug/L 10:57 AM [facility] MEDICAL screening [facility] Comment: Season, race, dietary intake, and treatm ent affect the concentration of 10-fyzuisu-Aeegonz D. Values may decreas e during winter [...] specimen 05/31/2019 1:43 PM 019 1:44 (specimen) CEMENT GUN OPERATOR PM CEMENT GUN OPERATOR Froylan Louise MD LAB - BLOOD ORDERABLES Performing Organization Address City/[facility]/ZIP Code Phon e Number [facility] [address] [place], [place] [id number] [place] [address] Vitamin B12 (05/31/2019 1:43 PM CEMENT GUN OPERATOR) athologist Signature Vitamin B12 368 193 - 986 05/31/2019 [facility] pg/mL 10:40 PM CEMENT GUN OPERATOR [facility] Specimen Anatomical Collection Method Collection Time Receive d Time (Source) Location / / Volume Laterality Blood specimen 05/31/2019 1:43 PM 019 1:44 (specimen) CEMENT GUN OPERATOR PM CEMENT GUN OPERATOR Froylan Louise MD LAB - BLOOD ORDERABLES Performing Organization Address City/[facility]/ZIP Code Phon e Number [facility] [address] [place] [address] [facility] TSH with free T4 reflex (05/31/2019 1:43 PM CEMENT GUN OPERATOR) athologist Signature TSH 2.21 0.40 - 4.00 06/01/2019 [facility] mU/L 10:50 AM [facility] Specimen Anatomical Collection Method Collection Time Receive d Time (Source) Location / / Volume Laterality Blood specimen 05/31/2019 1:43 PM 019 1:44 (specimen) CEMENT GUN OPERATOR PM CEMENT GUN OPERATOR Froylan Louise MD LAB - BLOOD ORDERABLES Performing Organization Address City/[facility]/ZIP Code Phon e Number [facility] [address] [place] [address] Comprehensive metabolic panel (05/31/2019 1:43 PM CEMENT GUN OPERATOR) athologist Signature Sodium 139 133 - 144 06/01/2019 [facility] mmol/L 10:18 AM [facility] Potassium 4.0 3.4 - 5.3 06/01/2019 [facility] mmol/L 10:18 AM [facility] Chloride 106 94 - 109 06/01/2019 [facility] mmol/L 10:18 AM [facility] Carbon Dioxide 25 20 - 32 06/01/2019 [facility] mmol/L 10:36 AM [facility] Anion Gap 8 3 - 14 06/01/2019 [facility] mmol/L 10:36 AM [facility] Glucose 96 70 - 99 06/01/2019 [facility] mg/dL 10:36 AM [facility] Urea Nitrogen 15 7 - 30 06/01/2019 [facility] mg/dL 10:36 AM [facility] Creatinine 0.81 0.66 - 06/01/2019 [facility] 1.25 mg/dL 10:36 AM [facility] GFR Estimate >90 >60 06/01/2019 [facility] mL/min/{1. 10:36 AM [facility] 73_m2} [facility] Comment: Non GFR Calc Starting 06/09/2018, serum creatinine ba sed estimated GFR (eGFR) will be calculated using the Chronic Kidney Dise [facility] Epidemiology Collaboration (CKD-EPI) equation. GFR Estimate If >90 >60 mL/min/{1.73_m2} 06/01/2019 10 :36 AM [facility] Black [facility] Comment: GFR Calc Starting 06/09/2018, serum creatinine ba sed estimated GFR (eGFR) will be calculated using the Chronic Kidney Dise [facility] Epidemiology Collaboration (CKD-EPI) equation. Calcium 9.0 8.5 - 10.1 06/01/2019 10:36 AM [facility] mg/dL [facility] Bilirubin Total 0.7 0.2 - 1.3 mg/dL 06/01/2019 10:42 A M [facility] Albumin 3.5 3.4 - 5.0 g/dL 06/01/2019 10:42 AM [facility] Protein Total 7.4 6.8 - 8.8 g/dL 06/01/2019 10:42 AM [facility] Alkaline Phosphatase 95 40 - 150 U/L 06/01/2019 10:42 AM [facility] ALT 32 0 - 70 U/L 06/01/2019 10:42 AM [facility] AST 21 0 - 45 U/L 06/01/2019 10:42 AM [facility] Specimen Anatomical Collection Method Collection Time Receive d Time (Source) Location / / Volume Laterality Blood specimen 05/31/2019 1:43 PM 019 1:44 (specimen) CEMENT GUN OPERATOR PM CEMENT GUN OPERATOR Froylan Louise MD LAB - BLOOD ORDERABLES Performing Organization Address City/State/ZIP Code Phon e Number [facility] [address] [place] [address] Prostate spec antigen screen (05/31/2019 1:43 PM CEMENT GUN OPERATOR) athologist Signature PSA 0.28 0 - 4 ug/L 06/01/2019 [facility] 10:42 AM [facility] Comment: Assay Method: Chemiluminescence using [facility] analyzer Specimen Anatomical Collection Method Collection Time Receive d Time (Source) Location / / Volume Laterality Blood specimen 05/31/2019 1:43 PM 019 1:44 (specimen) CEMENT GUN OPERATOR PM CEMENT GUN OPERATOR Froylan Louise MD LAB - BLOOD ORDERABLES Performing Organization Address City/State/ZIP Code Phon e Number [facility] [address] [place] [address] [facility] [address] [place] [address], [facility] [phone] (ABNORMAL) CRP inflammation (05/31/2019 1:43 PM CEMENT GUN OPERATOR) [facility] gist Method Time Signature CRP Inflammation 21.0 (H) 0.0 - 8.0 05/31/2019 [facility] F mg/L 6:56 PM [facility] Specimen Anatomical Collection Method Collection Time Receive d Time (Source) Location / / Volume Laterality Blood specimen 05/31/2019 1:43 PM 019 1:44 (specimen) CEMENT GUN OPERATOR PM CEMENT GUN OPERATOR Froylan Louise MD LAB - BLOOD ORDERABLES Performing Organization Address City/State/ZIP Code Phon e Number [facility] [address] [place] [address] [facility] Erythrocyte sedimentation rate auto (05/31/2019 1:43 PM CEMENT GUN OPERATOR) P athologist Signature Sed Rate 15 0 - 20 mm/h 05/31/2019 [place] 2:53 PM [facility] Specimen Anatomical Collection Method Collection Time Receive d Time (Source) Location / / Volume Laterality Blood specimen 05/31/2019 1:43 PM 019 1:44 (specimen) CEMENT GUN OPERATOR PM CEMENT GUN OPERATOR Froylan Louise MD LAB - BLOOD ORDERABLES Performing Organization Address City/State/ZIP Code Phon e Number [facility] [address] [place] [address] CBC with platelets differential (05/31/2019 1:43 PM CEMENT GUN OPERATOR) [facility] Method Time Signature WBC 8.0 4.0 - 05/31/2019 [facility] 11.0 2:53 PM CEMENT GUN OPERATOR CLINICS 10e9/L [place] RBC Count 5.02 4.4 - 5.9 05/31/2019 [facility] 10e12/L 2:53 PM CEMENT GUN OPERATOR [facility] Hemoglobin 14.8 13.3 - 05/31/2019 [facility] 17.7 g/dL 2:53 PM CEMENT GUN OPERATOR [facility] Hematocrit 45.1 40.0 - 05/31/2019 [facility] 53.0 % 2:53 PM CEMENT GUN OPERATOR [facility] MCV 90 78 - 100 05/31/2019 [facility] fl 2:53 PM CEMENT GUN OPERATOR [facility] MCH 29.5 26.5 - 05/31/2019 [facility] 33.0 pg 2:53 PM CEMENT GUN OPERATOR [facility] MCHC 32.8 31.5 - 05/31/2019 [facility] 36.5 g/dL 2:53 PM CEMENT GUN OPERATOR [facility] RDW 14.6 10.0 - 05/31/2019 [facility] 15.0 % 2:53 PM CEMENT GUN OPERATOR [facility] Platelet Count 249 150 - 450 05/31/2019 [facility] 10e9/L 2:53 PM CEMENT GUN OPERATOR [facility] % Neutrophils 75.6 % 05/31/2019 [facility] 2:53 PM CEMENT GUN OPERATOR [facility] % Lymphocytes 16.6 % 05/31/2019 [facility] 2:53 PM CEMENT GUN OPERATOR [facility] % Monocytes 6.1 % 05/31/2019 [facility] 2:53 PM CEMENT GUN OPERATOR [facility] % Eosinophils 1.3 % 05/31/2019 [facility] 2:53 PM CEMENT GUN OPERATOR [facility] % Basophils 0.4 % 05/31/2019 [facility] 2:53 PM CEMENT GUN OPERATOR [facility] Absolute 6.1 1.6 - 8.3 05/31/2019 [facility] Neutrophil 10e9/L 2:53 PM CEMENT GUN OPERATOR [facility] Absolute 1.3 0.8 - 5.3 05/31/2019 [facility] Lymphocytes 10e9/L 2:53 PM [facility] Absolute 0.5 0.0 - 1.3 05/31/2019 [place] Monocytes 10e9/L 2:53 PM [facility] Absolute 0.1 0.0 - 0.7 05/31/2019 [place] Eosinophils 10e9/L 2:53 PM [facility] Absolute 0.0 0.0 - 0.2 05/31/2019 [facility] Basophils 10e9/L 2:53 PM [facility] Diff Method Automated 05/31/2019 [place] Method 2:53 PM [facility] Specimen Anatomical Collection Method Collection Time Receive d Time (Source) Location / / Volume Laterality Blood specimen 05/31/2019 1:43 PM 019 1:44 (specimen) CEMENT GUN OPERATOR PM CEMENT GUN OPERATOR Froylan Louise MD LAB - BLOOD ORDERABLES Performing Organization Address City/State/ZIP Code Phon e Number [facility] [address] [place] [address] documented in this encounter Visit Diagnoses Diagnosis [...] HIV documented in this encounter Care Teams Electrical Tech Relationship Specialty Start Date End Date Froylan Louise MD PCP - General Family Practice 02/22/14 Froylan Louise MD Assigned PCP 03/13/14 2 documented as of this encounter
--- OUTSIDE RECORDS SUMMARY | 2022-05-15 22:56 | XMS_ITS | Encounter Summary ---
:1955 Author Organization [place] Address [address] [place] [address] Care Team Providers Name Role Phone Froylan Louise MD Primary Care Provider Unavailable Froylan Louise MD Unavailable Unavailable Encounter Details Date Type Department Care Team Description 06/07/[address] [facility] Wily g term current use of anticoagulants with INR goal of 2.0-3.0; [facility] DVT (deep venous thrombosis) (H) [address] [place] [address] Social History Tobacco Use [...] containing 4 or more times a w [place] 05/25/2021 alcohol? How many drinks containing alcohol [...] Comme nts INR Routine 06/07/2019 3:57 PM director long term care current use of Results for this MEAT DRESSER anticoagulants with INR proc edure are in goal of 2.0-3.0 the results DVT (deep venous section. thrombosis) (H) documented in this encounter Results (ABNORMAL) INR (06/07/2019 3:57 PM MEAT DRESSER) athologist Signature INR 2.70 (H) 0.86 - 1.14 06/07/2019 [place] 4:05 PM [facility] Comment: This test is intended for monitoring Cou madin therapy. ??Results are not accurate in patients with prolonged INR due to factor deficiency. Specimen Anatomical Collection Method Collection Time Receive d Time (Source) Location / / Volume Laterality Blood specimen 06/07/2019 3:57 PM 019 3:58 (specimen) MEAT DRESSER PM MEAT DRESSER Froylan Louise MD LAB - BLOOD ORDERABLES Performing Organization Address City/State/ZIP Code Phon e Number [facility] [address] [place] [address] documented in this encounter Visit Diagnoses Diagnosis director long term care current use of anticoagulants with INR goal of 2.0-3.0 DVT (deep venous thrombosis) (H) Acute venous embolism and thrombosis of unspecified deep vessels of lower extremity documented in this encounter Care Teams Rickshaw Driver Relationship Specialty Start Date End Date Froylan Louise MD PCP - General Family Practice 02/22/14 Froylan Louise MD Assigned PCP 03/13/14 2 documented as of this encounter
--- OUTSIDE RECORDS SUMMARY | 2022-05-15 22:56 | XMS_ITS | Encounter Summary ---
:1955 Author Organization [place] Address [address] [place] [address] Care Team Providers Name Role Phone Froylan [...] you attend christianity or Patient refused 2020 moravian services? Do [...] on filedocumented in this encounter Care Teams Vp Product Marketing Relationship Specialty Start Date End Date Froylan Louise MD PCP - General Family Practice 02/22/14 Froylan Louise MD Assigned PCP 03/13/14 2 documented as of this encounter
--- OUTSIDE RECORDS SUMMARY | 2022-05-15 22:57 | XMS_ITS | Encounter Summary ---
:1955 Author Organization [place] Address [address] [place] [address] Care Team Providers Name Role Phone Froylan [...] you attend mandaeism or Patient refused 2020 protestant services? Do [...] on filedocumented in this encounter Care Teams Docket Clerk Relationship Specialty Start Date End Date Froylan Louise MD PCP - General Family Practice 02/22/14 Froylan Louise MD Assigned PCP 03/13/14 2 documented as of this encounter
--- OUTSIDE RECORDS SUMMARY | 2022-05-15 22:57 | XMS_ITS | Encounter Summary ---
:1955 Author Organization [place] Address [address] [place] [address] Care Team Providers Name Role Phone Froylan Louise MD Primary Care Provider Unavailable Froylan Louise MD Unavailable Unavailable Reason for Visit Reason Onset Date Comments Patient Request 12/10/2018 Encounter Details Date Type Department Care Team Description 12/10/2018 Telephone [facility] Froylan Louise Ra, MD Patient Request [address] [phone] Social History Tobacco Use [...] you attend sabianist or Patient refused 2020 islam services? Do [...] medication list at this time. Carolin Dawson Rehabilitation Supervisor Telephone Encounter - Court Gonzalez - 12/10/2018 12:54 PM CDT Patient would like his medication records faxed over to Dr. Barbosa at [facility]. Please call to discuss. documented in this encounter Plan of Treatment Upcoming Encounters Date Type Specialty Care Team Description 05/20/2022 Lab Lab documented as of this encounter Visit Diagnoses Not on filedocumented in this encounter Care Teams Lead Javascript Developer Relationship Specialty Start Date End Date Froylan Louise MD PCP - General Family Practice 02/22/14 Froylan Louise MD Assigned PCP 03/13/14 2 documented as of this encounter
--- OUTSIDE RECORDS SUMMARY | 2022-05-15 22:57 | XMS_ITS | Encounter Summary ---
:1955 Author Organization [place] Address [address] [place] [address] Care Team Providers Name Role Phone Froylan Louise MD Primary Care Provider Unavailable Froylan Louise MD Unavailable Unavailable Reason for Visit Reason Comments Fatigue 1 month Edema entire body x 1 month Encounter Details Date Type Department Care Team Description 01/09/2019 [facility] Visit [facility] Clinic Warnock MD [place] (Primary Dx) [address] [place] [address] Social History Tobacco Use Types [...] you attend gnosticist or Patient refused 2020 scientologist services? Do [...] positive ??? Mild persistent asthma ??? Health Snf ? ? Hyperlipidemia LDL goal <160 ??? [...] RNA Quant and Genotype Froylan Louise MD [facility] documented in this encounter Plan [...] Quant and Genotype (01/09/2019 12:32 PM CDT) [facility] Method Time Signature Hepatitis C Nonreactive NR^Nonrea 01/11/2019 [facility] Antibody ctive 4:09 PM CDT [facility] Comment: Assay performance characteristics have n ot been established for newborns, infants, and children Specimen Anatomical Collection Method Collection Time Receive d Time (Source) Location / / Volume Laterality Blood specimen 01/09/2019 12:32 9 (specimen) PM CDT 12:33 PM CDT Froylan Louise MD LAB - BLOOD ORDERABLES Performing Organization Address City/[facility]/ZIP Code Phon e Number [address] Antistreptolysin O (01/09/2019 12:32 PM CDT) [facility] Method Time Signature Antistreptolysin O 39 0 - 120 01/11/2019 [facility] IU/mL 4:11 PM CDT [facility] Comment: A single ASO analysis may not [...] LAB - BLOOD ORDERABLES Performing Organization Address City/[facility]/ZIP Code Phon e Number [facility] [address] (ABNORMAL) Erythrocyte sedimentation rate auto (01/09/2019 12:32 PM CDT) P athologist Signature Sed Rate 27 (H) 0 - 20 mm/h 01/09/2019 [place] 12:44 PM CDT [facility] Specimen Anatomical Collection Method Collection Time Receive d Time (Source) Location / / Volume Laterality Blood specimen 01/09/2019 12:32 9 (specimen) PM CDT 12:33 PM CDT Froylan Louise MD LAB - BLOOD ORDERABLES Performing Organization Address City/[facility]/ZIP Code Phon e Number [facility] [address] [place] [address] (ABNORMAL) CRP inflammation (01/09/2019 12:32 PM CDT) [facility] Method Time Signature CRP Inflammation 47.0 (H) 0.0 - 8.0 01/11/2019 [facility] mg/L 2:12 PM CDT [facility] Specimen Anatomical Collection Method Collection Time Receive d Time (Source) Location / / Volume Laterality Blood specimen 01/09/2019 12:32 9 (specimen) PM CDT 12:33 PM CDT Froylan Louise MD LAB - BLOOD ORDERABLES Performing Organization Address City/[facility]/ZIP Code Phon e Number [facility] 500 [place], [place] [id number] [place] [address] (ABNORMAL) Comprehensive metabolic panel (01/09/2019 12:32 PM CDT) [facility] Method Time Signature Sodium 143 133 - 144 01/11/2019 [facility] mmol/L 12:56 PM CDT [facility] Potassium 4.1 3.4 - 5.3 01/11/2019 [facility] mmol/L 12:56 PM CDT [facility] Chloride 110 (H) 94 - 109 01/11/2019 [facility] mmol/L 12:56 PM CDT [facility] Carbon Dioxide 27 20 - 32 01/11/2019 [facility] mmol/L 1:[address] [facility] Anion Gap 6 3 - 14 01/11/2019 [facility] mmol/L 1:01 PM CDT [facility] Glucose 112 (H) 70 - 99 01/11/2019 [place] mg/dL 1:01 PM [facility] Urea Nitrogen 18 7 - 30 01/11/2019 [place] mg/dL 1:01 PM [facility] Creatinine 0.82 0.66 - 01/11/2019 [place] 1.25 mg/dL 1:01 PM [facility] GFR Estimate >90 >60 01/11/2019 [place] mL/min/{1. 1:01 PM [facility] 73_m2} [facility] Comment: Non GFR Calc Starting 06/09/2018, serum creatinine ba sed estimated GFR (eGFR) will be calculated using the Chronic Kidney Dise [facility] Epidemiology Collaboration (CKD-EPI) equation. GFR Estimate If >90 >60 mL/min/{1.73_m2} 01/11/2019 1: 01 PM [facility] Comment: GFR Calc Starting 06/09/2018, serum creatinine ba sed estimated GFR (eGFR) will be calculated using the Chronic Kidney Dise [facility] Epidemiology Collaboration (CKD-EPI) equation. Calcium 8.5 8.5 - 10.1 01/11/2019 1:01 PM [place] [facility] mg/dL [facility] Bilirubin Total 0.6 0.2 - 1.3 01/11/2019 1:04 PM [facility] [place] mg/dL [facility] Albumin 3.1 (L) 3.4 - 5.0 g/dL 01/11/2019 1:04 PM [facility] Protein Total 7.0 6.8 - 8.8 g/dL 01/11/2019 1:04 PM [facility] Alkaline Phosphatase 91 40 - 150 U/L 01/11/2019 1:04 PM [facility] ALT 25 0 - 70 U/L 01/11/2019 1:04 PM [facility] AST 19 0 - 45 U/L 01/11/2019 1:04 PM [facility] Specimen Anatomical Collection Method Collection Time Receive d Time (Source) Location / / Volume Laterality Blood specimen 01/09/2019 12:32 9 (specimen) PM CDT 12:33 PM CDT Froylan Louise MD LAB - BLOOD ORDERABLES Performing Organization Address City/State/ZIP Code Phon e Number [facility] [address] [address] [phone] [facility] [address] [place], [place] [address] [facility] [address] [address], [place] [phone] Lyme Disease Kandice with reflex to WB Serum (01/09/2019 12:32 PM CDT) athologist Signature Lyme Disease 0.22 0.00 - 01/11/2019 [facility] 0.89 4:02 PM CDT [facility] Comment: Negative, Absence of detectable Borrelia burdorferi [...] e Number [facility] 500 [place] [address] [facility] (ABNORMAL) CBC with platelets differential (01/09/2019 12:32 PM CDT) athologist Signature WBC 6.7 4.0 - 11.0 01/09/2019 [place] 10e9/L 12:42 PM CDT [facility] RBC Count 4.61 4.4 - 5.9 01/09/2019 [place] 10e12/L 12:42 PM CDT [facility] Hemoglobin 13.5 13.3 - 17.7 01/09/2019 [place] g/dL 12:42 PM CDT [facility] Hematocrit 41.3 40.0 - 53.0 01/09/2019 [place] % 12:42 PM CDT [facility] MCV 90 78 - 100 fl 01/09/2019 [facility] 12:42 PM CDT [facility] MCH 29.3 26.5 - 33.0 01/09/2019 [facility] pg 12:42 PM CDT [facility] MCHC 32.7 31.5 - 36.5 01/09/2019 [facility] g/dL 12:42 PM CDT [facility] RDW 15.1 (H) 10.0 - 15.0 01/09/2019 [facility] % 12:42 PM CDT [facility] Comment: Results confirmed by repeat shanthi t Platelet Count 232 150 - 450 01/09/2019 12:42 [facility] 10e9/L PM CDT [facility] % Neutrophils 80.4 % 01/09/2019 12:42 [facility] PM CDT [facility] % Lymphocytes 12.0 % 01/09/2019 12:42 [facility] PM CDT [facility] % Monocytes 5.8 % 01/09/2019 12:42 [facility] PM CDT [facility] % Eosinophils 1.5 % 01/09/2019 12:42 [facility] PM CDT [facility] % Basophils 0.3 % 01/09/2019 12:42 [facility] PM CDT [facility] Absolute Neutrophil 5.4 1.6 - 8.3 01/09/2019 12:42 [facility] 10e9/L PM CDT [facility] Absolute 0.8 0.8 - 5.3 01/09/2019 12:42 [place] Lymphocytes 10e9/L PM CDT [facility] Absolute Monocytes 0.4 0.0 - 1.3 01/09/2019 12:42 [facility]IEW 10e9/L PM CDT [facility] Absolute 0.1 0.0 - 0.7 01/09/2019 12:42 [place] Eosinophils 10e9/L PM CDT [facility] Absolute Basophils 0.0 0.0 - 0.2 01/09/2019 12:42 [facility] 10e9/L PM CDT [facility] Diff Method Automated Method 01/09/2019 12:42 [facility] PM CDT [facility] Specimen Anatomical Collection Method Collection Time Receive d Time (Source) Location / / Volume Laterality Blood specimen 01/09/2019 12:32 9 (specimen) PM CDT 12:33 PM CDT Froylan Louise MD LAB - BLOOD ORDERABLES Performing Organization Address City/State/ZIP Code Phon e Number [facility] [address] [address] Cyclic Citrullinated Peptide Antibody IgG (01/09/2019 12:32 PM CDT) Patholo gist Method Time Signature Cyclic 1 <7 U/mL 01/12/2019 [facility] Citrullinated 12:41 PM CDT [facility] Peptide Antibody, [facility] Comment: Negative Specimen Anatomical Collection Method Collection Time Receive d Time (Source) Location / / Volume Laterality Blood specimen 01/09/2019 12:32 9 (specimen) PM CDT 12:33 PM CDT Froylan Louise MD LAB - BLOOD ORDERABLES Performing Organization Address City/State/ZIP Code Phon e Number [facility] [address] Rheumatoid factor (01/09/2019 12:32 PM CDT) P athologist Signature Rheumatoid <20 <20 IU/mL 01/11/2019 [facility] Factor 4:11 PM CDT [facility] Specimen Anatomical Collection Method Collection Time Receive d Time (Source) Location / / Volume Laterality Blood specimen 01/09/2019 12:32 9 (specimen) PM CDT 12:33 PM CDT Froylan Louise MD LAB - BLOOD ORDERABLES Performing Organization Address City/State/ZIP Code Phon e Number [facility] [address] documented in this encounter Visit Diagnoses Diagnosis Inflammatory arthritis - Primary Unspecified inflammatory polyarthropathy documented in this encounter Care Teams Dross Skimmer Relationship Specialty Start Date End Date Froylan Louise MD PCP - General Family Practice 02/22/14 Froylan Louise MD Assigned PCP 03/13/14 2 documented as of this encounter
--- OUTSIDE RECORDS SUMMARY | 2022-05-15 22:57 | XMS_ITS | Encounter Summary ---
:1955 Author Organization [place] Address [address] [place] [address] Care Team Providers Name Role Phone Froylan [...] you attend caodaism or Patient refused 2020 christian services? Do [...] on filedocumented in this encounter Care Teams Rv Body Mechanic Relationship Specialty Start Date End Date Froylan Louise MD PCP - General Family Practice 02/22/14 Froylan Louise MD Assigned PCP 03/13/14 2 documented as of this encounter
--- OUTSIDE RECORDS SUMMARY | 2022-05-15 22:57 | XMS_ITS | Encounter Summary ---
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
--- OUTSIDE RECORDS SUMMARY | 2022-05-15 22:57 | XMS_ITS | Encounter Summary ---
:1955 Author Organization [place] Address [address] [place] [address] Care Team Providers Name Role Phone Froylan Louise MD Primary Care Provider Unavailable Froylan Louise MD Unavailable Unavailable Reason for Visit Reason Onset Date Comments Refill Request 09/30/2018 SYMB[place]ORT 160-4.5 G/ACT Inhaler Encounter Details Date Type Department Care Team Description 09/30/2018 [facility] Froylan Louise Ra, Refill Request Chhaya VILLASEÑOR (SYMBICORT 160-4.[address] [facility] MCG/ACT Inhaler) [place] [address] Social History Tobacco Use [...] containing 4 or more times a w [place] 05/25/2021 alcohol? How many drinks containing [...] you attend spiritism or Patient refused 2020 baptist services? Do [...] 09/30/2018 2:15 PM CDT Prescription approved per [facility] Refill Protocol. Wendi Lindsay RN, BSN Telephone [...] asthma documented in this encounter Care Teams Joinery Machinist Relationship Specialty Start Date End Date Froylan Louise MD PCP - General Family Practice 02/22/14 Froylan Louise MD Assigned PCP 03/13/14 2 documented as of this encounter
--- OUTSIDE RECORDS SUMMARY | 2022-05-15 22:57 | XMS_ITS | Encounter Summary ---
:1955 Author Organization [place] Address [address] [place] [address] Care Team Providers Name Role Phone Froylan Louise MD Primary Care Provider Unavailable Froylan Louise MD Unavailable Unavailable Froylan Louise MD Unavailable Unavailable Encounter Details Date Type Department Care Team Description 08/20/2018 Anticoagulation Therapy [facility] Audrey [place] [address] [place] [address] Social History Tobacco Use Types [...] you attend druze or Patient refused 2020 pentecostalism services? Do [...] the Anticoagulation Therapy Visit) Wendi Lindsay RN R ENERGY INSTALLATION MANAGER documented in this encounter Plan of Treatment Upcoming Encounters Date Type Specialty Care Team Description 05/20/2022 Lab Lab documented as of this encounter Visit Diagnoses Not on filedocumented in this encounter Care Teams Photo Studio Assistant Relationship Specialty Start Date End Date Froylan Louise MD PCP - General Family Practice 02/22/14 Froylan Louise MD PCP - Assigned PCP 03/13/14 08/25/18 Froylan Louise MD Assigned PCP 03/13/14 2 documented as of this encounter
--- OUTSIDE RECORDS SUMMARY | 2022-05-15 22:57 | XMS_ITS | Encounter Summary ---
:1955 Author Organization [place] Address [address] [place] [address] Care Team Providers Name Role Phone Froylan Louise MD Primary Care Provider Unavailable Froylan Louise MD Unavailable Unavailable Encounter Details Date Type Department Care Team Description 01/15/2019 Anticoagulation Therapy [facility] current use Visit Clinic [facility] [id number] [place] [address] Social History Tobacco Use Types Packs/Day [...] you attend orthodoxy or Patient refused 2020 adventism services? Do [...] lab: [facility] Comments: See the Encounter Report to view [...] nts INR POINT OF CARE Routine 01/15/2019 terminal clerk current use o f Results for this anticoagulant therapy proced ure are in the results section . documented in this encounter Results (ABNORMAL) INR point of care (01/15/2019) athologist Signature INR Point of 2.2 (A) 0.86 - [facility] 1.14 [facility] Specimen (Source) Anatomical Location Collection Method / Collectio n Time Received Time / Laterality Volume 01/15/2019 Froylan Louise MD LAB - BLOOD ORDERABLES Performing Organization Address City/State/ZIP Code Phon e Number [facility] [address] [place] [address] documented in this encounter Visit Diagnoses Diagnosis terminal clerk current use of anticoagulant t herapy documented in this encounter Care Teams Fabric Stretcher Relationship Specialty Start Date End Date Froylan Louise MD PCP - General Family Practice 02/22/14 Froylan Louise MD Assigned PCP 03/13/14 2 documented as of this encounter
--- OUTSIDE RECORDS SUMMARY | 2022-05-15 22:57 | XMS_ITS | Encounter Summary ---
:1955 Author Organization [place] Address [address] [place] [address] Care Team Providers Name Role Phone Froylan Louise MD Primary Care Provider Unavailable Froylan Louise MD Unavailable Unavailable Encounter Details Date Type Department Care Team Description 08/27/2018 Anticoagulation Therapy [facility] Elevated INR (Primary Dx); Visit Clinic [place] terminal manager current use of ant icoagulant therapy [address] [place] [address] Social History Tobacco Use Types [...] you attend anglican or Patient refused 2020 sikh services? Do [...] Delete lomeli to remove if not charging [id number] Esthela Corea RN EN BOX MAKER Esthela Corea RN - 08/27/2018 3:45 PM [...] due to antiphospholipid syndromes. Esthela Corea RN EN BOX MAKER Esthela Corea RN - 08/27/2018 3:45 PM CST Pt notified - Pt expressed understanding and acceptance of the plan. Pt had no further questions at this time. Advised can call back to clinic at any time with concerns. Esthela Corea RN EN BOX MAKER documented in this encounter Plan of Treatment Upcoming Encounters Date Type Specialty Care Team Description 05/20/2022 Lab Lab documented as of this encounter Procedures Procedure Name Priority Date/Time Associated Diagnosis Comme nts FACTOR 10 Routine 08/27/2018 3:47 PM Elevated INR Results for this CHROMOGENIC [facility] group home current use proced ure are in of anticoagulant the results therapy section. INR POINT OF CARE Routine 08/27/2018 Elevated INR Results for this group home current use proced ure are in of anticoagulant the results therapy section. documented in this encounter Results (ABNORMAL) Factor 10 chromogenic (08/27/2018 3:47 PM WOODEN BOX MAKER) Analysis Performed At [facility] logis Time Signature Chromogenic 34 (L) 70 - 130 % 08/28/2018 [facility] Factor 10 8:59 AM WOODEN BOX MAKER [facility] Comment: Therapeutic Range: ??A Chromogenic [...] specimen 08/27/2018 3:47 PM 019 3:48 (specimen) WOODEN BOX MAKER PM WOODEN BOX MAKER Froylan Louise MD LAB - BLOOD ORDERABLES Performing Organization Address City/State/ZIP Code Phon e Number [facility] [address] [place], [place] [id number] [place] [address] (ABNORMAL) INR point of care (08/27/2018) P athologist Signature INR Point of 3.6 (A) 0.86 - [facility] 1.14 [facility] Specimen (Source) Anatomical Location Collection Method / Collectio n Time Received Time / Laterality Volume 08/27/2018 Froylan Louise MD LAB - BLOOD ORDERABLES Performing Organization Address City/State/ZIP Code Phon e Number [facility] [address] [place] [address] documented in this encounter Visit Diagnoses Diagnosis Elevated INR - Primary Abnormal coagulation profile terminal manager current use of anticoagulant t herapy documented in this encounter Care Teams Telephonic Nurse Relationship Specialty Start Date End Date Froylan Louise MD PCP - General Family Practice 02/22/14 Froylan Louise MD Assigned PCP 03/13/14 2 documented as of this encounter
--- OUTSIDE RECORDS SUMMARY | 2022-05-15 22:57 | XMS_ITS | Encounter Summary ---
:1955 Author Organization [place] Address [address] [place] [address] Care Team Providers Name Role Phone Froylan Louise MD Primary Care Provider Unavailable Froylan Louise MD Unavailable Unavailable Encounter Details Date Type Department Care Team Description 01/08/2019 Anticoagulation Therapy [facility] current use Visit Clinic [facility] [id number] [place] [phone] Social History Tobacco Use Types Packs/Day Years Used Date Smoking Tobacco: Former Cigarettes 2 25 Quit : 08/04/2006 Smokeless Tobacco: Never Comments: 2005 Alcohol Use Standard Drinks/Week Comments Yes 0 (1 standard drink = 0.6 oz pure alcoho l) 4 BEERS A WEEK Alcohol Habits Answer Date Recorded How often do you have a drink containing 4 or more times a w [place] 05/25/2021 alcohol? How many drinks containing [...] you attend orthodox or Patient refused 2020 catholic services? Do [...] Wendi Lindsay RN Plan last modified: Yeimi aDniel RN (02/12/2018) Next INR check: 02/19/2019 Target end date: Indications Long-term (current) use of anticoagulants [Z79.01] [Z79.01] Embolism and thrombosis (H) (Resolved) [I74.9] Anticoagulation Episode Summary INR check location: Preferred lab: Send INR reminders to: [facility] Comments: See the Encounter Report to view [...] INR POINT OF CARE Routine 01/08/2019 exterminator helper current use o f Results for this anticoagulant therapy proced ure are in the results section . documented in this encounter Results (ABNORMAL) INR point of care (01/08/2019) athologist Signature INR Point of 2.1 (A) 0.86 - [facility] 1.14 [facility] Specimen (Source) Anatomical Location Collection Method / Collectio n Time Received Time / Laterality Volume 01/08/2019 Froylan Louise MD LAB - BLOOD ORDERABLES Performing Organization Address City/State/ZIP Code Phon e Number [facility] [address] [place] [address] documented in this encounter Visit Diagnoses Diagnosis exterminator helper current use of anticoagulant t herapy documented in this encounter Care Teams Cad Manager Relationship Specialty Start Date End Date Froylan Louise MD PCP - General Family Practice 02/22/14 Froylan Louise MD Assigned PCP 03/13/14 2 documented as of this encounter
--- OUTSIDE RECORDS SUMMARY | 2022-05-15 22:57 | XMS_ITS | Encounter Summary ---
:1955 Author Organization [place] Address [address] [place] [address] Care Team Providers Name Role Phone Froylan [...] you attend presybeterian or Patient refused 2020 pentecostalism services? Do [...] on filedocumented in this encounter Care Teams General Operations Agent Relationship Specialty Start Date End Date Froylan Louise MD PCP - General Family Practice 02/22/14 Froylan Louise MD Assigned PCP 03/13/14 2 documented as of this encounter
--- OUTSIDE RECORDS SUMMARY | 2022-05-15 22:57 | XMS_ITS | Encounter Summary ---
:1955 Author Organization [place] Address [address] [place] [address] Care Team Providers Name Role Phone Froylan Louise MD Primary Care Provider Unavailable Froylan Louise MD Unavailable Unavailable Reason for Visit Reason Onset Date Comments Results 01/14/2019 Encounter Details Date Type Department Care Team Description 01/14/2019 Telephone [facility] Froylan Louise Ra, MD Results [address] [phone] Social History Tobacco [...] you attend latter-day or Patient refused 2020 hindu services? Do [...] provider feedback yet. Hilda Santoyo RN -- [facility] documented in this encounter Plan of Treatment Upcoming Encounters Date Type Specialty Care Team Description 05/20/2022 Lab Lab documented as of this encounter Visit Diagnoses Not on filedocumented in this encounter Care Teams Salesperson Flowers Relationship Specialty Start Date End Date Froylan Louise MD PCP - General Family Practice 02/22/14 Froylan Louise MD Assigned PCP 03/13/14 2 documented as of this encounter
--- OUTSIDE RECORDS SUMMARY | 2022-05-15 22:57 | XMS_ITS | Encounter Summary ---
:1955 Author Organization [place] Address [address] [place] [address] Care Team Providers Name Role Phone Froylan Louise MD Primary Care Provider Unavailable Froylan Louise MD Unavailable Unavailable Reason for Visit Reason Comments Medication Refill triamcinolone (KENALOG) 0.1 % external cream Encounter Details Date Type Department Care Team Description 12/05/2018 Refill [facility] Froylan Louise Ra, Medication Refill Chhaya VILLASEÑOR (triamcinolone (KENALOG) [address] [facility] 0.1 % external cream ) [place] [address] Social History Tobacco Use [...] you attend orthodoxy or Patient refused 2020 pentecostalism services? Do [...] 12/07/2018 11:37 AM CDT Prescription approved per [facility] Refill Protocol. Wendi Lindsay RN, BSN Telephone Encounter - Arleen Vidal NNP - 12/06/2018 2:51 PM CDT Requested Prescriptions [...] planus documented in this encounter Care Teams Search Developer Relationship Specialty Start Date End Date Froylan Louise MD PCP - General Family Practice 02/22/14 Froylan Louise MD Assigned PCP 03/13/14 2 documented as of this encounter
--- OUTSIDE RECORDS SUMMARY | 2022-05-15 22:57 | XMS_ITS | Encounter Summary ---
:1955 Author Organization [place] Address [address] [place] [address] Care Team Providers Name Role Phone Froylan [...] you attend shinto or Patient refused 2020 anabaptist services? Do [...] on filedocumented in this encounter Care Teams Hydroelectric Plant Structural Engineer Relationship Specialty Start Date End Date Froylan Louise MD PCP - General Family Practice 02/22/14 Froylan Louise MD Assigned PCP 03/13/14 2 documented as of this encounter
--- OUTSIDE RECORDS SUMMARY | 2022-05-15 22:57 | XMS_ITS | Encounter Summary ---
:1955 Author Organization [place] Address [address] [place] [address] Care Team Providers Name Role Phone Froylan Louise MD Primary Care Provider Unavailable Froylan Louise MD Unavailable Unavailable Reason for Visit Reason Comments Medication Refill Encounter Details Date Type Department Care Team Description 12/22/2018 Refill [facility] Froylan Louise Ra, MD Medication Refill [address] [address] Social History Tobacco [...] you attend druze or Patient refused 2020 restorationism services? Do [...] AM CDT RX monitoring program ([place]) reviewed: LINOTYPE OPERATOR reviewed- no concerns MNPMP profile: [email or web address] Telephone Encounter - Thais Clifton - 12/22/2018 [...] SHOULD BE DELETED.) [facility] Office [facility] with [facility] [place] care provider: 08/10/2018Dani Future Office visit: Next 5 appointments (look out 90 days) Dec 29, 2018 2:40 PM CDT SHORT with Froylan Louise MD [facility] [id number] [place] [address] Controlled substance agreement: Encounter-Level CSA: There are no encounter-level csa. Patient-Level CSA: There are no patient-level csa. Last Urine Drug Screen: No results found for: CDAUT, No results found for: COMDAT, No results found for: THC13, PCP13, COC13, MAMP13, OPI13, AMP13, BZO13, TCA13, MTD13, BAR13, OXY13, PPX13, BUP13 Processing: Staff will hand deliver Rx to on-site pharmacy [email or web address] LINOTYPE OPERATOR checked in past 3 months? No, route to RN documented in this encounter Plan of Treatment Upcoming Encounters Date Type Specialty Care Team Description 05/20/2022 Lab Lab documented as of this encounter Visit Diagnoses Diagnosis Insomnia, unspecified type documented in this encounter Care Teams Wire Inspector Relationship Specialty Start Date End Date Froylan Louise MD PCP - General Family Practice 02/22/14 Froylan Louise MD Assigned PCP 03/13/14 2 documented as of this encounter
--- OUTSIDE RECORDS SUMMARY | 2022-05-15 22:57 | XMS_ITS | Encounter Summary ---
:1955 Author Organization [place] Address [address] [place] [address] Care Team Providers Name Role Phone Froylan Louise MD Primary Care Provider Unavailable Froylan Louise MD Unavailable Unavailable Reason for Visit Reason Comments Medication Refill furosemide (LASIX) 20 MG tab let Encounter Details Date Type Department Care Team Description 08/30/2018 Refill [facility] Froylan Louise Ra, Medication Refill Chhaya VILLASEÑOR (furosemide (LASIX) [address] MG tablet) [place] [address] Social History Tobacco Use Types Packs/Day Years Used Date Smoking Tobacco: Former Cigarettes 2 25 Quit : 08/04/2006 Smokeless Tobacco: Never Comments: 2004 Alcohol Use Standard Drinks/Week Comments Yes 0 (1 standard drink = 0.6 oz pure alcoho l) 4 BEERS A WEEK Alcohol Habits Answer Date Recorded How often do you have a drink containing 4 or more times a w tulalip 05/25/2021 alcohol? How many drinks containing alcohol [...] you attend mosque or Patient refused 2020 restoration services? Do [...] RN, BSN Telephone Encounter - Arleen Vidal SUGAR PLANTATION MANAGER - 08/30/2018 2:49 PM CDT Requested Prescriptions [...] Edema documented in this encounter Care Teams Dampener Relationship Specialty Start Date End Date Froylan Louise MD PCP - General Family Practice 02/22/14 Froylan Louise MD Assigned PCP 03/13/14 2 documented as of this encounter
--- OUTSIDE RECORDS SUMMARY | 2022-05-15 22:57 | XMS_ITS | Encounter Summary ---
:1955 Author Organization [place] Address [address] [place] [address] Care Team Providers Name Role Phone Froylan Louise MD Primary Care Provider Unavailable Froylan Louise MD Unavailable Unavailable Encounter Details Date Type Department Care Team Description 09/18/2018 Anticoagulation Therapy Visit [address] [address] Social History Tobacco Use Types [...] you attend sabianism or Patient refused 2020 hoahaoism services? Do [...] Yeimi Daniel RN (02/12/2018) Next INR check: 10/16/2018 [...] filedocumented in this encounter Care Teams 3D Animator Relationship Specialty Start Date End Date Froylan Louise MD PCP - General Family Practice 02/22/14 Froylan Louise MD Assigned PCP 03/13/14 2 documented as of this encounter
--- OUTSIDE RECORDS SUMMARY | 2022-05-15 22:57 | XMS_ITS | Encounter Summary ---
:1955 Author Organization [place] Address [address] [place] [address] Care Team Providers Name Role Phone Froylan Louise MD Primary Care Provider Unavailable Froylan Louise MD Unavailable Unavailable Reason for Visit Reason Onset Date Comments Refill Request 10/15/2018 enoxaparin (LOVENOX) 40 MG/0.4ML syringe Encounter Details Date Type Department Care Team Description 10/15/2018 [facility] Froylan Louise Ra, Refill Request Chhaya VILLASEÑOR (enoxaparin (LOVENOX) [address] MG/0.4ML syringe ) [place] [address] Social History Tobacco Use [...] you attend orthodox or Patient refused 2020 presybeterian services? [...] because: Drug not on the [facility] or [facility] refill protocol or controlled substance Carlos [...] (H) documented in this encounter Care Teams Perfect Bind Machine Operator Relationship Specialty Start Date End Date Froylan Louise MD PCP - General Family Practice 02/22/14 Froylan Louise MD Assigned PCP 03/13/14 2 documented as of this encounter
--- OUTSIDE RECORDS SUMMARY | 2022-05-15 22:57 | XMS_ITS | Encounter Summary ---
:1955 Author Organization [place] Address [address] [place] [address] Care Team Providers Name Role Phone Froylan [...] containing 4 or more times a w circle 05/25/2021 alcohol? How many drinks containing alcohol [...] you attend adventism or Patient refused 2020 uatsdin services? Do [...] on filedocumented in this encounter Care Teams Craniologist Relationship Specialty Start Date End Date Froylan Louise MD PCP - General Family Practice 02/22/14 Froylan Louise MD Assigned PCP 03/13/14 2 documented as of this encounter
--- OUTSIDE RECORDS SUMMARY | 2022-05-15 22:57 | XMS_ITS | Encounter Summary ---
:1955 Author Organization [place] Address [address] [place] [address] Care Team Providers Name Role Phone Froylan Louise MD Primary Care Provider Unavailable Froylan Louise MD Unavailable Unavailable Froylan Louise MD Unavailable Unavailable Reason for Referral Specialty Diagnoses / Procedures Referred By Contact Refer red To Contact Froylan Louise [place] [address] [address] [place] [address] Referral ID Status Reason Start Date Expiration Date Visits Requ ested Visits Authorized Scheduling Instructions ANTICOAGULATION CLINIC COLLABORATIVE [place] ACTICE AGREEMENT The following represents a collaborative practice agreement among the physicians of the Clinic and staff of the Anticoagulat ion Clinic Service ([facility]) Physicians shall: 1. Refer patients requiring anticoagulat ion to a specialty service staffed by personnel of Pharmacy Services and super vised by Clinic physicians. 2. Respond to questions and referrals fr pharmacy staff regarding delinquent or difficult patients. 3. Inform the [facility] staff when a new patie nt [...] Initiate vitamin K therapy when marta cated. [employer] Reason for Visit Reason Onset Date Comments Referral 08/20/2018 inr Encounter Details Date Type Department Care Team Description 08/20/2018 [facility] Froylan Louise Ra, MD Referral (inr) [address] [address] Social History Tobacco Use [...] you attend confucianist or Patient refused 2020 rastafari services? Do [...] please explain) no Wendi Lindsay RN, BSN [employer] documented in this encounter Plan of Treatment Upcoming Encounters Date Type Specialty Care Team Description 05/20/2022 Lab Lab Scheduled Referrals Name Type Priority Associated Diagnoses Order S chedule INR CLINIC REFERRAL Referral Routine Chronic deep vein Ord ered: 08/20/2018 thrombosis (DVT) of lower extremity, unspecified laterality, unspecified vein (H) terminal clerk current use of anticoagulant therapy documented as of this encounter Visit Diagnoses Diagnosis Chronic deep vein thrombosis (DVT) of lo wer extremity, unspecified laterality, unspecified vein (H) - Primary detention current use of anticoagulant t herapy documented in this encounter Care Teams Community Development Technician Relationship Specialty Start Date End Date Froylan Louise MD PCP - General Family Practice 02/22/14 Froylan Louise MD PCP - Assigned PCP 03/13/14 08/25/18 Froylan Louise MD Assigned PCP 03/13/14 2 documented as of this encounter
--- OUTSIDE RECORDS SUMMARY | 2022-05-15 22:57 | XMS_ITS | Encounter Summary ---
:1955 Author Organization [place] Address [facility] [place] [address] Care Team Providers Name Role Phone Froylan [...] Type Department Care Team Description 01/20/2019 Refill [facility] Froylan Louise Ra, Refill Request Chhaya VILLASEÑOR (terazosin (HYTRIN) 2 [place] [address] [facility] capsule); [place] [address] (loperamide (IMODIUM) MG capsule); Re fill Request [...] you attend jain or Patient refused 2020 sikh services? Do [...] 01/21/2019 10:18 AM CDT Prescription approved [facility] [place]ill Protocol. No RF need on the [...] (H) documented in this encounter Care Teams Logistics Service Representative Relationship Specialty Start Date End Date Froylan Louise MD PCP - General Family Practice 02/22/14 Froylan Louise MD Assigned PCP 03/13/14 2 documented as of this encounter
--- OUTSIDE RECORDS SUMMARY | 2022-05-15 22:57 | XMS_ITS | Encounter Summary ---
:1955 Author Organization [place] Address [address] [place] [address] Care Team Providers Name Role Phone Froylan [...] you attend advent or Patient refused 2020 pentecostal services? Do [...] on filedocumented in this encounter Care Teams Regulatory Submissions Specialist Relationship Specialty Start Date End Date Froylan Louise MD PCP - General Family Practice 02/22/14 Froylan Louise MD Assigned PCP 03/13/14 2 documented as of this encounter
--- OUTSIDE RECORDS SUMMARY | 2022-05-15 22:57 | XMS_ITS | Encounter Summary ---
:1955 Author Organization [place] Address [address] [place] [address] Care Team Providers Name Role Phone Froylan Louise MD Primary Care Provider Unavailable Froylan Louise MD Unavailable Unavailable Reason for Visit Reason Onset Date Comments INR Followup 09/28/2018 Encounter Details Date Type Department Care Team Description 09/28/2018 Telephone [facility] Froylan Louise Ra, MD INR Followup [address] [address] Social History Tobacco [...] containing 4 or more times a w curyung 05/25/2021 alcohol? How many drinks containing alcohol [...] you attend orthodox or Patient refused 2020 latter day services? [...] - 09/28/2018 1:28 PM CDT Valorie with [employer] called in regards to the patient's training documents. She states that she has been in contact with Esthela before in regards to this patient and these documents. She states that you can give her a call back at [phone] ext. [phone] or if you can just fax over thedocuments [phone]. Vianney Iglesias FWF - TC/FD 09/28/2018 1:31 PM documented in this encounter Plan of Treatment Upcoming Encounters Date Type Specialty Care Team Description 05/20/2022 Lab Lab documented as of this encounter Visit Diagnoses Not on filedocumented in this encounter Care Teams Car Record Clerk Relationship Specialty Start Date End Date Froylan Louise MD PCP - General Family Practice 02/22/14 Froylan Louise MD Assigned PCP 03/13/14 2 documented as of this encounter
--- OUTSIDE RECORDS SUMMARY | 2022-05-15 22:57 | XMS_ITS | Encounter Summary ---
:1955 Author Organization [place] Address [address] [place] [address] Care Team Providers Name Role Phone Froylan Louise MD Primary Care Provider Unavailable Froylan Louise MD Unavailable Unavailable Encounter Details Date Type Department Care Team Description 11/27/2018 Anticoagulation Therapy Visit [address] [address] Social History Tobacco Use Types [...] INR Point of 2.6 (A) 0.86 - [facility] 1.14 [facility] Specimen (Source) Anatomical Location Collection Method / Collectio n Time Received Time / Laterality Volume 11/27/2018 Froylan Louise MD LAB - BLOOD ORDERABLES Performing Organization Address City/State/ZIP Code Phon e Number [facility] [address] [place] [address] documented in this encounter Visit Diagnoses Not on filedocumented in this encounter Care Teams Circuit Clerk Relationship Specialty Start Date End Date Froylan Louise MD PCP - General Family Practice 02/22/14 Froylan Louise MD Assigned PCP 03/13/14 2 documented as of this encounter
--- OUTSIDE RECORDS SUMMARY | 2022-05-15 22:57 | XMS_ITS | Encounter Summary ---
:1955 Author Organization [place] Address [address] [place] [address] Care Team Providers Name Role Phone Froylan Louise MD Primary Care Provider Unavailable Froylan Louise MD Unavailable Unavailable Reason for Visit Reason Onset Date Comments Medication Refill multiple medications Refill Request 10/09/2018 Encounter Details Date Type Department Care Team Description 10/07/2018 Refill [facility] Froylan Louise Ra, Medication Refill Chhaya VILLASEÑOR (multiple medications); [address] [facility] [place] [address] Social History Tobacco Use [...] you attend mosque or Patient refused 2020 samaritan services? Do [...] CDT Rx for Ambien was faxed to [facility]. Carolin Dawson Electronics Mechanic Apprentice Telephone Encounter - Esthela Corea RN - [...] the name of the med Brandon Vania Electronics Mechanic Apprentice 10/08/18 12:24 PM Telephone Encounter - Esthela Corea RN - 10/08/2018 10:27 AM CDT LM for call back- Why does pt need lovenox? Esthela Corea RN Telephone Encounter - Esthela Corea RN - 10/08/2018 10:24 AM CDT RX monitoring program ([place]NPMP) reviewed: DIRECTOR TALENT reviewed- no concerns Last fill 08/10/18 Prescription approved per [facility] Refill Protocol. For coumadin Esthela Corea RN [...] [facility] primary care provider: 08/10/2018 Future Office visit: Controlled substance agreement: Encounter-Level CSA: There are no encounter-level csa. Patient-Level CSA: There are no patient-level csa. Last Urine Drug Screen: No results found for: CDAUT, No results found for: COMDAT, No results found for: THC13, PCP13, COC13, MAMP13, OPI13, AMP13, BZO13, TCA13, MTD13, BAR13, OXY13, PPX13, BUP13 Processing: Patient will milk pickup driver in clinic [email or web address] TALENT checked in past 3 months? No, route [...] stream documented in this encounter Care Teams Commercial Energy Auditor Relationship Specialty Start Date End Date Froylan Louise MD PCP - General Family Practice 02/22/14 Froylan Louise MD Assigned PCP 03/13/14 2 documented as of this encounter
--- OUTSIDE RECORDS SUMMARY | 2022-05-15 22:57 | XMS_ITS | Encounter Summary ---
:1955 Author Organization [place] Address [address] [place] [address] Care Team Providers Name Role Phone Froylan [...] containing 4 or more times a w ambler 05/25/2021 alcohol? How many drinks containing alcohol [...] you attend anglican or Patient refused 2020 baptist services? Do [...] on filedocumented in this encounter Care Teams Central Stores Attendant Relationship Specialty Start Date End Date Froylan Louise MD PCP - General Family Practice 02/22/14 Froylan Louise MD Assigned PCP 03/13/14 2 documented as of this encounter
--- OUTSIDE RECORDS SUMMARY | 2022-05-15 22:57 | XMS_ITS | Encounter Summary ---
:1955 Author Organization [place] Address [address] [place] [address] Care Team Providers Name Role Phone Froylan Louise MD Primary Care Provider Unavailable Froylan Louise MD Unavailable Unavailable Encounter Details Date Type Department Care Team Description 10/16/2018 Anticoagulation Therapy Visit [address] [address] Social History Tobacco Use Types [...] you attend protestant or Patient refused 2020 holiness services? Do [...] INR Point of 2.3 (A) 0.86 - [facility] 1.14 [facility] Specimen (Source) Anatomical Location Collection Method / Collectio n Time Received Time / Laterality Volume 10/16/2018 Froylan Louise MD LAB - BLOOD ORDERABLES Performing Organization Address City/State/ZIP Code Phon e Number [facility] [address] [place] [address] documented in this encounter Visit Diagnoses Not on filedocumented in this encounter Care Teams Inserter Operator Relationship Specialty Start Date End Date Froylan Louise MD PCP - General Family Practice 02/22/14 Froylan Louise MD Assigned PCP 03/13/14 2 documented as of this encounter
--- OUTSIDE RECORDS SUMMARY | 2022-05-15 22:57 | XMS_ITS | Encounter Summary ---
:1955 Author Organization [place] Address [address] [place] [address] Care Team Providers Name Role Phone Froylan [...] you attend yarsani or Patient refused 2020 gnosticist services? Do [...] on filedocumented in this encounter Care Teams Desk Monitor Relationship Specialty Start Date End Date Froylan Louise MD PCP - General Family Practice 02/22/14 Froylan Louise MD Assigned PCP 03/13/14 2 documented as of this encounter
--- OUTSIDE RECORDS SUMMARY | 2022-05-15 22:57 | XMS_ITS | Encounter Summary ---
:1955 Author Organization [place] Address [address] [place] [address] Care Team Providers Name Role Phone Froylan Louise MD Primary Care Provider Unavailable Froylan Louise MD Unavailable Unavailable Reason for Visit Reason Onset Date Comments Nurse Advice Line 09/02/2018 compression stocking s Encounter Details Date Type Department Care Team Description 09/02/2018 Telephone [facility] Froylan Louise Nurs e Advice Line [facility] hChaya VILLASEÑOR (compression stockings) [address] [place] [address] Social History Tobacco Use Types [...] you attend samaritan or Patient refused 2020 mu-ism services? Do [...] 12:13 PM CDT Rx was faxed to [facility]. Carolin Dawson Concrete Truck Driver Telephone Encounter - Wendi Busch RN - 09/08/2018 11:18 AM CDT Please have provider sign and then fax Wendi Busch RN, BSN Telephone Encounter - Adriana Caro - 09/08/2018 10:53 AM CDT [facility] calling asking for DME order to be faxed to them at [phone] Brandon Vania Concrete Truck Driver 09/08/18 10:54 AM Telephone Encounter - Nay Simmons RN - 09/02/2018 2:43 PM CDT Requesting refill of compression stockings, insurance allows 4 a year Disp Refills Start End JAIDEN order for DME 1 Units 0 08/10/2018 08/10/2019 -- Sig: Equipment being ordered: compression stockings, fit to size, 30-40 mm Hg, thigh high, 1 Prescription approved per [facility] Refill Protocol Nay Simmons RN BS Addendum [...] embolism documented in this encounter Care Teams Tier Lift Truck Operator Relationship Specialty Start Date End Date Froylan Louise MD PCP - General Family Practice 02/22/14 Froylan Louise MD Assigned PCP 03/13/14 2 documented as of this encounter
--- OUTSIDE RECORDS SUMMARY | 2022-05-15 22:57 | XMS_ITS | Encounter Summary ---
:1955 Author Organization [place] Address [address] [place] [address] Care Team Providers Name Role Phone Froylan Louise MD Primary Care Provider Unavailable Froylan Louise MD Unavailable Unavailable Reason for Visit Reason Onset Date Comments INR Followup 09/21/2018 home monitoring Encounter Details Date Type Department Care Team Description 09/21/[address] [facility] Froylan Louise, INR Followup (home Clinic Chhaya VILLASEÑOR monitoring ) [address] [place] [address] Social History Tobacco Use Types [...] containing 4 or more times a w [place] 05/25/2021 alcohol? How many drinks containing alcohol [...] you attend orthodox or Patient refused 2020 episcopalian services? Do [...] on filedocumented in this encounter Care Teams Product Distribution Specialist Relationship Specialty Start Date End Date Froylan Louise MD PCP - General Family Practice 02/22/14 Froylan Louise MD Assigned PCP 03/13/14 2 documented as of this encounter
--- OUTSIDE RECORDS SUMMARY | 2022-05-15 22:58 | XMS_ITS | Encounter Summary ---
:1955 Author Organization [place] Address [address] [place] [address] Care Team Providers Name Role Phone Froylan Louise MD Primary Care Provider Unavailable Froylan Louise MD Unavailable Unavailable Froylan Louise MD Unavailable Unavailable Reason for Visit Reason Comments Medication Refill Encounter Details Date Type Department Care Team Description 07/08/2018 Refill [facility] Froylan Louise Ra, MD Medication Refill [address] [address] Social History Tobacco [...] you attend faith or Patient refused 2020 synagogue services? Do [...] (H) documented in this encounter Care Teams Abe Teacher Relationship Specialty Start Date End Date Froylan Louise MD PCP - General Family Practice 02/22/14 Froylan Louise MD PCP - Assigned PCP 03/13/14 08/25/18 Froylan Louise MD Assigned PCP 03/13/14 2 documented as of this encounter
--- OUTSIDE RECORDS SUMMARY | 2022-05-15 22:58 | XMS_ITS | Encounter Summary ---
:1955 Author Organization [place] Address [address] [place] [address] Care Team Providers Name Role Phone Froylan [...] you attend christian or Patient refused 2020 mormonism services? Do [...] on filedocumented in this encounter Care Teams Machine Filler Servicer Relationship Specialty Start Date End Date Froylan Louise MD PCP - General Family Practice 02/22/14 Froylan Louise MD PCP - Assigned PCP 03/13/14 08/25/18 Froylan Louise MD Assigned PCP 03/13/14 2 documented as of this encounter
--- OUTSIDE RECORDS SUMMARY | 2022-05-15 22:58 | XMS_ITS | Encounter Summary ---
:1955 Author Organization [place] Address [address] [place] [address] Care Team Providers Name Role Phone Froylan Louise MD Primary Care Provider Unavailable Froylan Louise MD Unavailable Unavailable Froylan Louise MD Unavailable Unavailable Encounter Details Date Type Department Care Team Description 06/26/2018 Anticoagulation Therapy Visit [address] [address] Social History Tobacco Use Types [...] you attend christian or Patient refused 2020 uatsdin services? Do [...] the Anticoagulation Therapy Visit) Esthela Corea RN ICAL DEPENDENCY COUNSELOR documented in this encounter Plan of Treatment [...] INR Point of 2.8 (A) 0.86 - [facility] 1.14 [facility] Specimen (Source) Anatomical Location Collection Method / Collectio n Time Received Time / Laterality Volume 06/26/2018 Froylan Louise MD LAB - BLOOD ORDERABLES Performing Organization Address City/State/ZIP Code Phon e Number [facility] [address] [place] [address] documented in this encounter Visit Diagnoses Not on filedocumented in this encounter Care Teams Short Goods Drier Relationship Specialty Start Date End Date Froylan Louise MD PCP - General Family Practice 02/22/14 Froylan Louise MD PCP - Assigned PCP 03/13/14 08/25/18 Froylan Louise MD Assigned PCP 03/13/14 2 documented as of this encounter
--- OUTSIDE RECORDS SUMMARY | 2022-05-15 22:58 | XMS_ITS | Encounter Summary ---
:1955 Author Organization [place] Address [address] [place] [address] Care Team Providers Name Role Phone Froylan Louise MD Primary Care Provider Unavailable Froylan Louise MD Unavailable Unavailable Froylan Louise MD Unavailable Unavailable Encounter Details Date Type Department Care Team Description 07/27/2018 Orders Only [facility] onic deep vein thrombosis (DVT) of lower extremity, unspecified laterality, unspecified vein (H); [facility] current use of ant icoagulant therapy [address] [place] [address] Social History Tobacco Use [...] you attend orthodox or Patient refused 2020 jewish services? Do [...] Chronic deep vein Resu lts for this FINISH PAINTER thrombosis (DVT) of procedur e are in lower extremity, the results unspecified laterality, sect ion. unspecified vein (H) [facility] current use of anticoagulant therapy documented in this encounter Results (ABNORMAL) INR (07/27/2018 4:32 PM FINISH PAINTER) athologist Signature INR 2.90 (H) 0.86 - 1.14 07/27/2018 [place] 4:43 PM [facility] Comment: This test is intended for monitoring Cou madin therapy. ??Results are not accurate in patients with prolonged INR due to factor deficiency. Specimen Anatomical Collection Method Collection Time Receive d Time (Source) Location / / Volume Laterality Blood specimen 07/27/2018 4:32 PM 019 4:33 (specimen) FINISH PAINTER PM FINISH PAINTER Froylan Louise MD LAB - BLOOD ORDERABLES Performing Organization Address City/State/ZIP Code Phon e Number [facility] [id number] [place] [address] documented in this encounter Visit Diagnoses Diagnosis Chronic deep vein thrombosis (DVT) of lo wer extremity, unspecified laterality, unspecified vein (H) [facility] current use of anticoagulant t herapy documented in this encounter Care Teams Punch Card Operator Relationship Specialty Start Date End Date Froylan Louise MD PCP - General Family Practice 02/22/14 Froylan Louise MD PCP - Assigned PCP 03/13/14 08/25/18 Froylan Louise MD Assigned PCP 03/13/14 2 documented as of this encounter
--- OUTSIDE RECORDS SUMMARY | 2022-05-15 22:58 | XMS_ITS | Encounter Summary ---
:1955 Author Organization [place] Address [address] [place] [address] Care Team Providers Name Role Phone Froylan [...] you attend hinduism or Patient refused 2020 uatsdin services? Do [...] on filedocumented in this encounter Care Teams Roll Mill Operator Relationship Specialty Start Date End Date Froylan Louise MD PCP - General Family Practice 02/22/14 Froylan Louise MD PCP - Assigned PCP 03/13/14 08/25/18 Froylan Louise MD Assigned PCP 03/13/14 2 documented as of this encounter
--- OUTSIDE RECORDS SUMMARY | 2022-05-15 22:58 | XMS_ITS | Encounter Summary ---
:1955 Author Organization [place] Address [address] [place] [address] Care Team Providers Name Role Phone Froylan Louise MD Primary Care Provider Unavailable Froylan Louise MD Unavailable Unavailable Froylan Louise MD Unavailable Unavailable Encounter Details Date Type Department Care Team Description 06/15/2018 Anticoagulation Therapy Visit [address] [address] Social History Tobacco Use Types [...] attend oriental orthodox or Patient refused 2020 mandaen services? Do [...] the Anticoagulation Therapy Visit) Wendi Lindsay RN CTOR MONEY documented in this encounter Plan of Treatment [...] INR Point of 1.4 (A) 0.86 - [facility] 1.14 [facility] Specimen (Source) Anatomical Location Collection Method / Collectio n Time Received Time / Laterality Volume 06/15/2018 Froylan Louise MD LAB - BLOOD ORDERABLES Performing Organization Address City/State/ZIP Code Phon e Number [facility] [id number] [place] [address] documented in this encounter Visit Diagnoses Not on filedocumented in this encounter Care Teams Help Desk Administrator Relationship Specialty Start Date End Date Froylan Louise MD PCP - General Family Practice 02/22/14 Froylan Louise MD PCP - Assigned PCP 03/13/14 08/25/18 Froylan Louise MD Assigned PCP 03/13/14 2 documented as of this encounter
--- OUTSIDE RECORDS SUMMARY | 2022-05-15 22:58 | XMS_ITS | Encounter Summary ---
:1955 Author Organization [place] Address [address] [place] [address] Care Team Providers Name Role Phone Froylan Louise MD Primary Care Provider Unavailable Froylan Louise MD Unavailable Unavailable Froylan Louise MD Unavailable Unavailable Reason for Visit Reason Onset Date Comments Patient/info Update 08/18/2018 appointment Encounter Details Date Type Department Care Team Description 08/18/2018 Telephone [facility] Froylan Louise Pati ent/info Update [facility] Chhaya VILLASEÑOR (appointment) [address] [place] [address] Social History Tobacco Use Types [...] containing 4 or more times a w mechoopda 05/25/2021 alcohol? How many drinks containing alcohol [...] you attend episcopal or Patient refused 2020 advent services? Do [...] at another [facility]. Patient declined. Irma Dunaway Insole Channeler RTING PRESS OPERATOR documented in this encounter Plan of Treatment Upcoming Encounters Date Type Specialty Care Team Description 05/20/2022 Lab Lab documented as of this encounter Visit Diagnoses Not on filedocumented in this encounter Care Teams Court Operations Clerk Relationship Specialty Start Date End Date Froylan Louise MD PCP - General Family Practice 02/22/14 Froylan Louise MD PCP - Assigned PCP 03/13/14 08/25/18 Froylan Louise MD Assigned PCP 03/13/14 2 documented as of this encounter
--- OUTSIDE RECORDS SUMMARY | 2022-05-15 22:58 | XMS_ITS | Encounter Summary ---
:1955 Author Organization [place] Address [address] [place] [address] Care Team Providers Name Role Phone Froylan [...] you attend mandaen or Patient refused 2020 moravian services? Do [...] on filedocumented in this encounter Care Teams Tnt Line Supervisor Relationship Specialty Start Date End Date Froylan Louise MD PCP - General Family Practice 02/22/14 Froylan Louise MD PCP - Assigned PCP 03/13/14 08/25/18 Froylan Louise MD Assigned PCP 03/13/14 2 documented as of this encounter
--- OUTSIDE RECORDS SUMMARY | 2022-05-15 22:58 | XMS_ITS | Encounter Summary ---
:1955 Author Organization [place] Address [address] [place] [address]. [place] [address] Care Team Providers Name Role Phone Froylan Louise MD Primary Care Provider Unavailable Froylan Louise MD Unavailable Unavailable Froylan Louise MD Unavailable Unavailable Reason for Visit Auth/Cert Specialty Diagnoses / Procedures Referred By Contact Refer red To Contact Surgery Diagnoses Fistula Rh Periop Services Procedures PROCEDURE PLACEHOLDER COLO-RECTAL [address] [place], [place] [address] Phone: Fax: Referral ID Status Reason Start Date Expiration Date Visits Requ ested Visits Authorized [id number] 1 1 Encounter Details Date Type Department Care Team Description 06/12/2018 Anesthesia Event [facility] Morgan Waggoner PeriOp Services MD Williams [address] [place] [address] ANESTHESIA [id number] [place], [place] [address] (Wo rk) Anesthesia Record Procedure Summary [...] 0941 by Bilateral; Rectum Gemini Mckeon APRN URANIUM PROCESSING SUPERVISOR Wound 06/12/18; 0945; 06/12/18 0945 by Anterior, [...] of Intubation: IJEOMA Garcia CRNA, AP RN COMMERCIAL SOLAR SALES CONSULTANT Easy; Airway Size: 8; Cuffed; Oral; Blade [...] Waggoner MD June 12, 2018 11:32 AM TING CONTROL CLERK Anesthesia Preprocedure Evaluation - Morgan Waggoner MD [...] benefits and alternatives discussed with: Patient or insurance sales representative and Patient.. Morgan Waggoner MD . TING CONTROL CLERK documented in this encounter Plan of Treatment Upcoming Encounters Date Type Specialty Care Team Description 05/20/2022 Lab Lab documented as of this encounter Visit Diagnoses Not on filedocumented in this encounter Administered Medications Inactive Administered Medications - up to 3 most recent administrations Medication Order MAR Action Action Date Dose Rate Site dexamethasone (DECADRON) injection Given 06/12/2018 8:56 AM AUDITING CONTROL CLERK 4 mg Intravenous, PRN, Administer over 1 Minutes, Starting on Fri06/12/18 at 0856, Anesthesia Intra-op fentaNYL (PF) (SUBLIMAZE) injection Given 06/12/2018 8:56 AM AUDITING CONTROL CLERK 100 mcg PRN, Administer over 3-5 Minutes, Starting on Fri06/12/18 at 0856, Anesthesia Intra-op glycopyrrolate (ROBINUL) injection Given 06/12/2018 8:56 AM AUDITING CONTROL CLERK 0.2 mg Intravenous, PRN, Administer over 1-2 Minutes, Starting on Fri06/12/18 at 0856, Anesthesia Intra-op lactated ringers infusion New Bag 06/12/2018 9:30 AM AUDITING CONTROL CLERK at 25 mL/hr, Intravenous, CONTINUOUS, IF patient NOT on dialysis., Pre-procedure, Starting on Fri06/12/18 at 0715, Until Fri06/12/18 at 0951 New Bag 06/12/2018 8:47 AM AUDITING CONTROL CLERK lidocaine 1 % injection Given 06/12/2018 8:56 AM AUDITING CONTROL CLERK 30 mg Intravenous, PRN, Starting on Fri06/12/18 at 0856, Anesthesia Intra-op midazolam (VERSED) injection Given 06/12/2018 8:51 AM AUDITING CONTROL CLERK 2 mg Administer over 2 Minutes, PRN, Starting on Fri06/12/18 at 0851, Anesthesia Intra-op neostigmine (PROSTIGMINE) injection Given 06/12/2018 9:30 AM AUDITING CONTROL CLERK 3 mg Intravenous, PRN, Starting on Fri06/12/18 at 0930, Anesthesia Intra-op ondansetron (ZOFRAN) injection Given 06/12/2018 8:56 AM AUDITING CONTROL CLERK 4 mg Intravenous, PRN, Administer over 2-5 Minutes, Starting on Fri06/12/18 at 0856, Anesthesia Intra-op propofol (DIPRIVAN) injection 10 mg/mL v ial Given 06/12/2018 8:56 AM AUDITING CONTROL CLERK 200 mg PRN, Starting on Fri06/12/18 at 0856, Anesthesia Intra-op rocuronium (ZEMURON) injection Given 06/12/2018 8:56 AM AUDITING CONTROL CLERK 35 mg PRN, Starting on Fri06/12/18 at 0856, Anesthesia Intra-op documented in this encounter Care Teams Manager Quality Systems Relationship Specialty Start Date End Date Froylan Louise MD PCP - General Family Practice 02/22/14 Froylan Louise MD PCP - Assigned PCP 03/13/14 08/25/18 Froylan Louise MD Assigned PCP 03/13/14 2 documented as of this encounter
--- OUTSIDE RECORDS SUMMARY | 2022-05-15 22:58 | XMS_ITS | Encounter Summary ---
:1955 Author Organization [place] Address [address] [place] [address] Care Team Providers Name Role Phone Froylan Louise MD Primary Care Provider Unavailable Froylan Louise MD Unavailable Unavailable Froylan Louise MD Unavailable Unavailable Encounter Details Date Type Department Care Team Description 08/10/2018 Orders Only [facility] onic deep vein thrombosis (DVT) of lower extremity, unspecified laterality, unspecified vein (H); [facility] longterm current use of ant icoagulant therapy [address] [place] [address] Social History Tobacco [...] you attend restoration or Patient refused 2020 confucianist services? Do [...] Chronic deep vein Resu lts for this BELT BUILDER thrombosis (DVT) of procedur e are in lower extremity, the results unspecified laterality, sect ion. unspecified vein (H) machine sweeper brush maker current use of anticoagulant therapy documented in this encounter Results (ABNORMAL) INR (08/10/2018 4:03 PM BELT BUILDER) P athologist Signature INR 2.10 (H) 0.86 - 1.14 08/10/2018 [place] 4:10 PM [facility] Specimen Anatomical Collection Method Collection Time Receive d Time (Source) Location / / Volume Laterality Blood specimen 08/10/2018 4:03 PM 019 4:04 (specimen) BELT BUILDER PM BELT BUILDER Froylan Louise MD LAB - BLOOD ORDERABLES Performing Organization Address City/State/ZIP Code Phon e Number [facility] [id number] [place] [address] documented in this encounter Visit Diagnoses Diagnosis Chronic deep vein thrombosis (DVT) of lo wer extremity, unspecified laterality, unspecified vein (H) longterm current use of anticoagulant t herapy documented in this encounter Care Teams Weight Reduction Specialist Relationship Specialty Start Date End Date Froylan Louise MD PCP - General Family Practice 02/22/14 Froylan Louise MD PCP - Assigned PCP 03/13/14 08/25/18 Froylan oLuise MD Assigned PCP 03/13/14 2 documented as of this encounter
--- OUTSIDE RECORDS SUMMARY | 2022-05-15 22:58 | XMS_ITS | Encounter Summary ---
:1955 Author Organization [place] Address [address] [place] [address] Care Team Providers Name Role Phone Froylan Louise MD Primary Care Provider Unavailable Froylan Louise MD Unavailable Unavailable Froylan Louise MD Unavailable Unavailable Encounter Details Date Type Department Care Team Description 06/19/2018 Anticoagulation Therapy Visit [address] [address] Social History Tobacco Use Types [...] you attend mormonism or Patient refused 2020 islam services? Do [...] physician directed care plan. Wendi Lindsay RN TEACHER documented in this encounter Plan of [...] INR Point of 1.7 (A) 0.86 - [facility] [place] [facility] 1.14 [facility] Specimen (Source) Anatomical Location Collection Method / Collectio n Time Received Time / Laterality Volume 06/19/2018 Froylan Louise MD LAB - BLOOD ORDERABLES Performing Organization Address City/State/ZIP Code Phon e Number [facility] [id number] [place] [address] documented in this encounter Visit Diagnoses Not on filedocumented in this encounter Care Teams Supervisor Tree Fruit And Nut Farming Relationship Specialty Start Date End Date Froylan Louise MD PCP - General Family Practice 02/22/14 Froylan Louise MD PCP - Assigned PCP 03/13/14 08/25/18 Froylan Louise MD Assigned PCP 03/13/14 2 documented as of this encounter
--- OUTSIDE RECORDS SUMMARY | 2022-05-15 22:58 | XMS_ITS | Encounter Summary ---
:1955 Author Organization [place] Address [address] [place] [address] Care Team Providers Name Role Phone Froylan Louise MD Primary Care Provider Unavailable Froylan Louise MD Unavailable Unavailable Froylan Louise MD Unavailable Unavailable Reason for Visit Reason Comments Medication Refill multiple medications Encounter Details Date Type Department Care Team Description 08/03/[address] [facility] Froylan Louise Ra, Medication Refill Chhaya VILLASEÑOR (multiple medications) [address] [place] [address] Social History Tobacco Use [...] you attend druze or Patient refused 2020 sabianism services? Do [...] because of your asthma? 0 0 0 AVER FLATWARE Telephone Encounter - Arleen Vidal GRAPHIC ART TECHNICIAN - 08/03/2018 8:26 PM CST Requested Prescriptions Pending Prescriptions Disp Refills ??? SYMBICORT 160-4.5 MCG/ACT Inhaler [Pharmacy Med Name: SYMBICORT 160-4.5 MCG INHALER] Last Written Prescription Date: 04/30/2018 Last Fill Quantity: 3, # refills: 0 Last office visit: 06/05/2018 with prescribing provider: 06/05/2018 Future Office Visit: Next 5 appointments (look out 90 days) Aug 10, 2018 4:00 PM ENGRAVER FLATWARE SHORT with Froylan Louise MD [facility] [id number] [place] [address] 30.6 Inhaler 0 Sig: TAKE 2 [...] is 18 years of age or older AVER FLATWARE documented in this encounter Plan of Treatment Upcoming Encounters Date Type Specialty Care Team Description 05/20/2022 Lab Lab documented as of this encounter Visit Diagnoses Diagnosis Mild persistent asthma without complicat ion Unspecified asthma Acute deep vein thrombosis (DVT) of prox imal vein of both lower extremities (H) documented in this encounter Care Teams Brazer Resistance Relationship Specialty Start Date End Date Froylan Louise MD PCP - General Family Practice 02/22/14 Froylan Louise MD PCP - Assigned PCP 03/13/14 08/25/18 Froylan Louise MD Assigned PCP 03/13/14 2 documented as of this encounter
--- OUTSIDE RECORDS SUMMARY | 2022-05-15 22:58 | XMS_ITS | Encounter Summary ---
:1955 Author Organization [place] Address [address] [place] [address] Care Team Providers Name Role Phone Froylan Louise MD Primary Care Provider Unavailable Froylan Louise MD Unavailable Unavailable Froylan Louise MD Unavailable Unavailable Encounter Details Date Type Department Care Team Description 08/11/2018 Anticoagulation Therapy [facility] [place] [address] [place] [address] Social History Tobacco Use Types [...] the Anticoagulation Therapy Visit) Esthela Corea RN NESS INFORMATION CONSULTANT documented in this encounter Plan of Treatment Upcoming Encounters Date Type Specialty Care Team Description 05/20/2022 Lab Lab documented as of this encounter Visit Diagnoses Not on filedocumented in this encounter Care Teams Embedded Firmware Developer Relationship Specialty Start Date End Date Froylan Louise MD PCP - General Family Practice 02/22/14 Froylan Louise MD PCP - Assigned PCP 03/13/14 08/25/18 Froylan Louise MD Assigned PCP 03/13/14 2 documented as of this encounter
--- OUTSIDE RECORDS SUMMARY | 2022-05-15 22:58 | XMS_ITS | Encounter Summary ---
:1955 Author Organization [place] Address [address] [place] [address] Care Team Providers Name Role Phone Froylan Louise MD Primary Care Provider Unavailable Froylan Louise MD Unavailable Unavailable Froylan Louise MD Unavailable Unavailable Reason for Visit Reason Onset Date Comments Pharyngitis 06/22/2018 Encounter Details Date Type Department Care Team Description 06/22/[address] [facility] Froylan Louise Ra, MD Pharyngitis [address] [address] Social History Tobacco Use [...] you attend scientologist or Patient refused 2020 denominational services? Do [...] any time with concerns. Esthela Corea RN TAL COMMUNICATIONS MANAGER documented in this encounter Plan of Treatment Upcoming Encounters Date Type Specialty Care Team Description 05/20/2022 Lab Lab documented as of this encounter Visit Diagnoses Not on filedocumented in this encounter Care Teams Onion Tier Relationship Specialty Start Date End Date Froylan Louise MD PCP - General Family Practice 02/22/14 Froylan Louise MD PCP - Assigned PCP 03/13/14 08/25/18 Froylan Louise MD Assigned PCP 03/13/14 2 documented as of this encounter
--- OUTSIDE RECORDS SUMMARY | 2022-05-15 22:58 | XMS_ITS | Encounter Summary ---
:1955 Author Organization [place] Address [facility] [place] [address] Care Team Providers Name Role Phone Froylan [...] Department Care Team Description 08/19/2018 [facility] Exacer[facility] tion of asthma, unspecified asthma severity, unspecified whether persistent (Primary Dx); Urgent Care Valentina Collins MD Throat pain; [address] [place] [address] [phone] Social History Tobacco Use Types Packs/Day Years [...] you attend scientologist or Patient refused 2020 yazidi services? Do [...] Comments Blood Pressure 140/68 08/19/2018 3:43 PM PACKAGING MATERIALS INSPECTOR Pulse 97 08/19/2018 3:43 PM PACKAGING MATERIALS INSPECTOR Temperature 37.9 ??C (100.3 ??F) 08/19/2018 3:43 PM PACKAGING MATERIALS INSPECTOR Respiratory Rate - - Oxygen Saturation 98% 08/19/2018 3:43 PM PACKAGING MATERIALS INSPECTOR Inhaled Oxygen Concentration - - Weight - [...] if you have new or worsening symptoms AGING MATERIALS INSPECTOR documented in this encounter Progress Notes Williams [...] Problem List Diagnosis Date Noted ??? Health [facility] 07/16/2011 Priority: High EMERGENCY CARE PLAN Presenting Problem Signs and Symptoms Treatment Plan Questions or conerns during clinic hours I will call the clinic directly Questions or conerns outside clinic hours I will call the 24 hour nurse line at [phone] Patient needs to schedule an appointment I will call the 24 hour scheduling team at [phone] orclinic directly Same day treatment I will call the clinic first, nurse line if after hours, urgent care and expresscare if needed DX V65.8 REPLACED WITH [id number] [facility] (09/28/2012) ??? Chronic deep vein thrombosis (DVT) [...] follow-up plan - INR Williams Barbour MD [facility] UNSCHEDULED CARE The use of [employer] dictation services may have been used to construct the content in this note; any grammatical or spelling errors are non- intentional. Please contact the author of this note directly if you are in need of any clarification. AGING MATERIALS INSPECTOR documented in this encounter Plan of Treatment Upcoming Encounters Date Type Specialty Care Team Description 05/20/2022 Lab Lab documented as of this encounter Procedures Procedure Name Priority Date/Time Associated Diagnosis Comme nts INR Routine 08/19/2018 3:57 PM On warfarin therapy Re sults for this PACKAGING MATERIALS INSPECTOR procedure are i n the results section. RAPID STREP SCREEN Routine 08/19/2018 3:52 PM Throat pain Res ults for this THROAT SWAB PACKAGING MATERIALS INSPECTOR procedure are i n the results section. BETA HEMOLYTIC Routine 08/19/2018 3:52 PM Throat pain Results for this STREP GROUP A PACKAGING MATERIALS INSPECTOR procedure are in CULTURE the results section. documented in this encounter Results (ABNORMAL) INR (08/19/2018 3:57 PM PACKAGING MATERIALS INSPECTOR) P athologist Signature INR 1.90 (H) 0.86 - 1.14 08/19/2018 [facility] 4:06 PM PACKAGING MATERIALS INSPECTOR [facility] Comment: This test is intended for monitoring Cou madin therapy. ??Results are not accurate in patients with prolonged INR due to factor deficiency. Specimen Anatomical Collection Method Collection Time Receive d Time (Source) Location / / Volume Laterality Blood specimen 08/19/2018 3:57 PM 019 3:58 (specimen) PACKAGING MATERIALS INSPECTOR PM PACKAGING MATERIALS INSPECTOR Williams Barbour MD LAB - BLOOD ORDERABLES Performing Organization Address [facility]/ZIP Code Phon e Number [facility] [id number] [place] [address] Beta strep group A culture (08/19/2018 3:52 PM PACKAGING MATERIALS INSPECTOR) Component Value Ref Test Analysis Performed At Patholo gist Range Method Time Signature Specimen Throat [facility] Culture Micro No beta 08/20/2018 [place] hemolytic 2:08 PM PACKAGING MATERIALS INSPECTOR [facility] Streptococcus [place] Group A isolated Specimen Anatomical Collection Method Collection Time Receive d Time (Source) Location / / Volume Laterality Specimen from 08/19/2018 3:52 PM 08/19/19 19 4:54 throat PACKAGING MATERIALS INSPECTOR PM PACKAGING MATERIALS INSPECTOR (specimen) Williams Barbour MD LAB - MICRO GENERAL ORDERABL ES Performing Organization Address [facility] Code Phon e Number [facility] [id number] [place] [address] Rapid strep screen (08/19/2018 3:52 PM PACKAGING MATERIALS INSPECTOR) Component Value Ref Test Analysis Performed At [facility] gist Range Method Time Signature Specimen Throat [facility] Rapid Strep A NEGATIVE: No 08/19/2018 [place] Screen Group A 4:04 PM PACKAGING MATERIALS INSPECTOR [facility] streptococcal [place] antigen detected by immunoassay, await culture report. Specimen Anatomical Collection Method Collection Time Receive d Time (Source) Location / / Volume Laterality Specimen from 08/19/2018 3:52 PM 08/19/19 19 3:53 throat PACKAGING MATERIALS INSPECTOR PM PACKAGING MATERIALS INSPECTOR (specimen) Williams Barbour MD LAB - MICRO GENERAL ORDERABL ES Performing Organization Address City/[facility]/ZIP Code Phon e Number [facility] [id number] [place] [address] documented in this encounter Visit Diagnoses Diagnosis Exacerbation of asthma, unspecified asth ma severity, unspecified whether persistent - Primary Throat pain On warfarin therapy documented in this encounter Care Teams Fish Cake Maker Relationship Specialty Start Date End Date Froylan Louise MD PCP - General Family Practice 02/22/14 Froylan Louise MD PCP - Assigned PCP 03/13/14 08/25/18 Froylan Louise MD Assigned PCP 03/13/14 2 documented as of this encounter
--- OUTSIDE RECORDS SUMMARY | 2022-05-15 22:58 | XMS_ITS | Encounter Summary ---
:1955 Author Organization [place] Address [address] [place] [address] Care Team Providers Name Role Phone Froylan Louise MD Primary Care Provider Unavailable Froylan Louise MD Unavailable Unavailable Froylan Louise MD Unavailable Unavailable Reason for Visit Reason Comments Medication Refill loperamide (IMODIUM) 2 MG ca psule Encounter Details Date Type Department Care Team Description 06/19/2018 Refill [facility] Froylan Louise Ra, Medication Refill Chhaya VILLASEÑOR (loperamide (IMODIUM) [address] MG capsule) [place] [address] Social History Tobacco Use [...] containing 4 or more times a w [place] 05/25/2021 alcohol? How many drinks containing alcohol [...] you attend islam or Patient refused 2020 mandaen services? Do [...] 06/22/2018 1:06 PM CST Prescription approved per [facility] Refill Protocol. Esthela Corea RN EAR MEDICINE OFFICER Telephone Encounter - Arleen Vidal ROUGHING MILL OPERATOR - 06/19/2018 8:12 PM CST Requested Prescriptions [...] no refill protocol information for this order EAR MEDICINE OFFICER documented in this encounter Plan of Treatment Upcoming Encounters Date Type Specialty Care Team Description 05/20/2022 Lab Lab documented as of this encounter Visit Diagnoses Diagnosis H/O ulcerative colitis Personal history of other diseases of di gestive system documented in this encounter Care Teams Lumber Stacker Relationship Specialty Start Date End Date Froylan Louise MD PCP - General Family Practice 02/22/14 Froylan Louise MD PCP - Assigned PCP 03/13/14 08/25/18 Froylan Louise MD Assigned PCP 03/13/14 2 documented as of this encounter
--- OUTSIDE RECORDS SUMMARY | 2022-05-15 22:58 | XMS_ITS | Encounter Summary ---
:1955 Author Organization [place] Address [address] [place] [address] Care Team Providers Name Role Phone Froylan [...] on filedocumented in this encounter Care Teams Waterfront Director Relationship Specialty Start Date End Date Froylan Louise MD PCP - General Family Practice 02/22/14 Froylan Louise MD PCP - Assigned PCP 03/13/14 08/25/18 Froylan Louise MD Assigned PCP 03/13/14 2 documented as of this encounter
--- OUTSIDE RECORDS SUMMARY | 2022-05-15 22:58 | XMS_ITS | Encounter Summary ---
:1955 Author Organization [place] Address [address] [place] [address] Care Team Providers Name Role Phone Froylan [...] you attend anabaptism or Patient refused 2020 confucianism services? Do [...] on filedocumented in this encounter Care Teams Crusher And Blender Operator Relationship Specialty Start Date End Date Froylan Louise MD PCP - General Family Practice 02/22/14 Froylan Louise MD PCP - Assigned PCP 03/13/14 08/25/18 Froylan Louise MD Assigned PCP 03/13/14 2 documented as of this encounter
--- OUTSIDE RECORDS SUMMARY | 2022-05-15 22:58 | XMS_ITS | Encounter Summary ---
:1955 Author Organization [place] Address [address] [place] [address] Care Team Providers Name Role Phone Froylan [...] containing 4 or more times a w [place] 05/25/2021 alcohol? How many drinks containing alcohol [...] you attend anglican or Patient refused 2020 presybeterian services? Do [...] on filedocumented in this encounter Care Teams Lace And Textiles Restorer Relationship Specialty Start Date End Date Froylan Louise MD PCP - General Family Practice 02/22/14 Froylan Louise MD PCP - Assigned PCP 03/13/14 08/25/18 Froylan Louise MD Assigned PCP 03/13/14 2 documented as of this encounter
--- OUTSIDE RECORDS SUMMARY | 2022-05-15 22:58 | XMS_ITS | Encounter Summary ---
:1955 Author Organization [place] Address [address] [place] [address] Care Team Providers Name Role Phone Froylan Louise MD Primary Care Provider Unavailable Froylan Louise MD Unavailable Unavailable Froylan Louise MD Unavailable Unavailable Reason for Visit Reason Onset Date Comments Nurse Advice Line 07/27/2018 Encounter Details Date Type Department Care Team Description 07/27/2018 Telephone [facility] Froylan Louise Ra, MD Nurse Advice Line [address] [address] Social History Tobacco Use [...] you attend zoroastrianism or Patient refused 2020 faith services? Do [...] Encounter - Page, Esthela Conrad RN - 08/04/2018 9:33 AM CST Pt does have appt for this on 08/10 Esthela Corea RN ENTERS SUPERVISOR Telephone Encounter - Froylan Louise MD - 08/04/2018 9:18 AM CST We could see him in clinic to discuss what other medications could address pain. May need certain joints looked at more specifically for arthritis and consider injection or other intervention. ENTERS SUPERVISOR Telephone Encounter - Wendi Lindsay RN - 07/30/2018 2:19 PM CST Per patient he has a lot of joint pain in all his joints and headaches. This is what he takes the Aleve for Wendi Lindsay RN, BSN ENTERS SUPERVISOR Telephone Encounter - Froylan Louise MD - 07/30/2018 12:30 PM CST What pain issue is he experiencing? ENTERS SUPERVISOR Telephone Encounter - Esthela Corea RN - [...] doing home INR checks. Esthela Corea RN ENTERS SUPERVISOR Telephone Encounter - Froylan Louise MD - 07/29/2018 9:32 AM CST I would not recommend NSAID with coumadin. ENTERS SUPERVISOR Telephone Encounter - Wendi Lindsay RN - [...] blood work done. Wendi Lindsay RN, BSN ENTERS SUPERVISOR documented in this encounter Plan of Treatment Upcoming Encounters Date Type Specialty Care Team Description 05/20/2022 Lab Lab documented as of this encounter Visit Diagnoses Not on filedocumented in this encounter Care Teams Border Patrol Agent Relationship Specialty Start Date End Date Froylan Louise MD PCP - General Family Practice 02/22/14 Froylan Louise MD PCP - Assigned PCP 03/13/14 08/25/18 Froylan Louise MD Assigned PCP 03/13/14 2 documented as of this encounter
--- OUTSIDE RECORDS SUMMARY | 2022-05-15 22:58 | XMS_ITS | Encounter Summary ---
:1955 Author Organization [place] Address [address] [place] [address] Care Team Providers Name Role Phone Froylan Louise MD Primary Care Provider Unavailable Froylan Louise MD Unavailable Unavailable Froylan Louise MD Unavailable Unavailable Reason for Visit Reason Onset Date Comments Nurse Advice Line 07/27/2018 INR visit Encounter Details Date Type Department Care Team Description [facility] Chhaya VILLASEÑOR visit) [address] [place] [address] Social History Tobacco Use Types [...] INR order placed. Wendi Lindsay RN, BSN ANALYSIS MANAGER Telephone Encounter - Adriana Caro - 07/27/2018 3:36 PM DATA ANALYSIS MANAGER Pt called and asked to be put on the lab only schedule today and have RN's call with dosing. Pt has a work schedule that is frequently changing and he has been unable to get in for his anticoagulation visit. Call pt with questions at [phone] Brandon Vania Tierce Filler 07/27/18 3:38 PM ANALYSIS MANAGER documented in this encounter Plan of Treatment Upcoming Encounters Date Type Specialty Care Team Description 05/20/2022 Lab Lab documented as of this encounter Visit Diagnoses Diagnosis Chronic deep vein thrombosis (DVT) of lo wer extremity, unspecified laterality, unspecified vein (H) - Primary manager long term care current use of anticoagulant t herapy documented in this encounter Care Teams Choir Leader Relationship Specialty Start Date End Date Froylan Louise MD PCP - General Family Practice 02/22/14 Froylan Louise MD PCP - Assigned PCP 03/13/14 08/25/18 Froylan Louise MD Assigned PCP 03/13/14 2 documented as of this encounter
--- OUTSIDE RECORDS SUMMARY | 2022-05-15 22:58 | XMS_ITS | Encounter Summary ---
:1955 Author Organization [place] Address [address] [place] [address] Care Team Providers Name Role Phone Froylan [...] Department Care Team Description 07/11/2018 Refill [facility] Froylan Louise Ra, Refill Request (warfarin Chhaya VILLASEÑOR (COUMADIN) 5 MG tablet) [address] [place] [address] Social History Tobacco [...] you attend muslim or Patient refused 2020 buddhism services? Do [...] 07/13/2018 7:26 AM CST Prescription approved per [facility] Refill Protocol. Wendi Lindsay RN, BSN EDICAL SERVICE ENGINEER Telephone Encounter - Thais Clifton - 07/11/2018 [...] is 18 years of age or older EDICAL SERVICE ENGINEER documented in this encounter Plan of [...] documented as of this encounter Care Teams Alumni Coordinator Relationship Specialty Start Date End Date Froylan Louise MD PCP - General Family Practice 02/22/14 Froylan Louise MD PCP - Assigned PCP 03/13/14 08/25/18 So Dodd MD PCP - General Family Medicine 01/10/22 01/17/22 [address] [place] [address] Froylan Louise MD PCP - General Family Medicine 01/18/22 So Dodd MD PCP - General [facility] Medicine 02/21/22 [address] [place] [address] Froylan Louise MD Assigned PCP 03/13/14 2 Esthela Corea, RN Personal Advocate & Liaison Family Medicine 10/16 (PAL) So Dodd MD Assigned PCP 01/05/22 [address] [place], [place] [id number] documented as of this encounter
--- OUTSIDE RECORDS SUMMARY | 2022-05-15 22:58 | XMS_ITS | Encounter Summary ---
:1955 Author Organization [place] Address [address] [place] [address] Care Team Providers Name Role Phone Froylan [...] attend jehovah's witness or Patient refused 2020 jehovah's witness services? [...] on filedocumented in this encounter Care Teams Fruit Grading Supervisor Relationship Specialty Start Date End Date Froylan Louise MD PCP - General Family Practice 02/22/14 Froylan Louise MD PCP - Assigned PCP 03/13/14 08/25/18 Froylan Louise MD Assigned PCP 03/13/14 2 documented as of this encounter
--- OUTSIDE RECORDS SUMMARY | 2022-05-15 22:58 | XMS_ITS | Encounter Summary ---
:1955 Author Organization [place] Address [address] [place] [address] Care Team Providers Name Role Phone Froylan Louise MD Primary Care Provider Unavailable Froylan Louise MD Unavailable Unavailable Froylan Louise MD Unavailable Unavailable Reason for Visit Reason Onset Date Comments Nurse Advice Line 08/17/2018 cold/cough Encounter Details Date Type Department Care Team Description 08/17/[address] [facility] Froylan Louise Nurs e Advice Line Clinic Chhaya VILLASEÑOR (cold/cough) [address] [place] [address] Social History Tobacco Use Types [...] containing 4 or more times a w tangir[place]q 05/25/2021 alcohol? How many drinks containing alcohol [...] you attend nondenominational or Patient refused 2020 mandaeism services? Do [...] Nay Simmons RN, BS Clinical Nurse Triage. INSULATOR RUBBER documented in this encounter Plan of Treatment Upcoming Encounters Date Type Specialty Care Team Description 05/20/2022 Lab Lab documented as of this encounter Visit Diagnoses Not on filedocumented in this encounter Care Teams Environmental Safety Specialist Relationship Specialty Start Date End Date Froylan Louise MD PCP - General Family Practice 02/22/14 Froylan Louise MD PCP - Assigned PCP 03/13/14 08/25/18 Froylan Louise MD Assigned PCP 03/13/14 2 documented as of this encounter
--- OUTSIDE RECORDS SUMMARY | 2022-05-15 22:58 | XMS_ITS | Encounter Summary ---
:1955 Author Organization [place] Address [address] [place] [address] Care Team Providers Name Role Phone Froylan Louise MD Primary Care Provider Unavailable Froylan Louise MD Unavailable Unavailable Froylan Louise MD Unavailable Unavailable Reason for Visit Reason Onset Date Comments Refill Request 08/04/2018 zolpidem ER (AMBIEN CR) 12.5 MG CR tablet Encounter Details Date Type Department Care Team Description 08/04/2018 Refill [facility] Froylan Louise Ra, Refill Request (zolpidem Chhaya VILLASEÑOR ER (AMBIEN CR) 12.[address] CR tablet) [place] [address] Social History Tobacco Use [...] you attend holiness or Patient refused 2020 anabaptism services? Do [...] AM CST RX monitoring program ([place]NPMP) reviewed: MICROFILMER reviewed- no concerns MNPMP profile: [email or web address] ENT ESCORT Telephone Encounter - Thais Clifton - 08/04/2018 [...] SHOULD BE DELETED.) Last Office Visit with [facility] primary care provider: 06/05/2018Dani Future Office visit: Next 5 appointments (look out 90 days) Aug 10, 2018 4:00 PM PATIENT ESCORT SHORT with Froylan Louise MD [facility] [address] [place] [address] Controlled substance agreement: Encounter-Level CSA: There are no encounter-level csa. Patient-Level CSA: There are no patient-level csa. Last Urine Drug Screen: No results found for: CDAUT, No results found for: COMDAT, No results found for: THC13, PCP13, COC13, MAMP13, OPI13, AMP13, BZO13, TCA13, MTD13, BAR13, OXY13, PPX13, BUP13 Processing: Staff will hand deliver Rx to on-site pharmacy [email or web address] MICROFILMER checked in past 3 months? No, route to RN ENT ESCORT documented in this encounter Plan of Treatment Upcoming Encounters Date Type Specialty Care Team Description 05/20/2022 Lab Lab documented as of this encounter Visit Diagnoses Diagnosis Insomnia, unspecified type documented in this encounter Care Teams Admissions Clinician Relationship Specialty Start Date End Date Froylan Louise MD PCP - General Family Practice 02/22/14 Froylan Louise MD PCP - Assigned PCP 03/13/14 08/25/18 Froylan Louise MD Assigned PCP 03/13/14 2 documented as of this encounter
--- OUTSIDE RECORDS SUMMARY | 2022-05-15 22:58 | XMS_ITS | Encounter Summary ---
:1955 Author Organization [place] Address [address] [place] [address] Care Team Providers Name Role Phone Froylan [...] you attend restoration or Patient refused 2020 shinto services? Do [...] filedocumented in this encounter Care Teams Turkey Boner Relationship Specialty Start Date End Date Froylan Louise MD PCP - General Family Practice 02/22/14 Froylan Louise MD PCP - Assigned PCP 03/13/14 08/25/18 Froylan Louise MD Assigned PCP 03/13/14 2 documented as of this encounter
--- OUTSIDE RECORDS SUMMARY | 2022-05-15 22:58 | XMS_ITS | Encounter Summary ---
:1955 Author Organization [place] Address [address] [place] [address] Care Team Providers Name Role Phone Froylan Louise MD Primary Care Provider Unavailable Froylan Louise MD Unavailable Unavailable Froylan Louise MD Unavailable Unavailable Reason for Visit Reason Onset Date Comments Nurse Advice Line 08/19/2018 Encounter Details Date Type Department Care Team Description 08/19/2018 Telephone [facility] Froylan Louise Ra, MD Nurse Advice Line [address] [address] Social History Tobacco Use [...] containing 4 or more times a w [place] 05/25/2021 alcohol? How many drinks containing [...] recommended the . Wendi Lindsay RN, BSN RVISOR CALIBRATION documented in this encounter Plan of Treatment Upcoming Encounters Date Type Specialty Care Team Description 05/20/2022 Lab Lab documented as of this encounter Visit Diagnoses Not on filedocumented in this encounter Care Teams Cloth Bleaching Range Tender Relationship Specialty Start Date End Date Froylan Louise MD PCP - General Family Practice 02/22/14 Froylan Louise MD PCP - Assigned PCP 03/13/14 08/25/18 Froylan Louise MD Assigned PCP 03/13/14 2 documented as of this encounter
--- OUTSIDE RECORDS SUMMARY | 2022-05-15 22:58 | XMS_ITS | Encounter Summary ---
:1955 Author Organization [place] Address [address] [place] [address] Care Team Providers Name Role Phone Froylan Louise MD Primary Care Provider Unavailable Froylan Louise MD Unavailable Unavailable Froylan Louise MD Unavailable Unavailable Encounter Details Date Type Department Care Team Description 07/16/2018 Anticoagulation Therapy Visit [address] [address] Social History Tobacco Use Types [...] you attend yazdanism or Patient refused 2020 latter-day services? Do [...] total: 45 mg Plan last modified: Yeimi aDniel RN (02/12/2018) Next INR check: 07/24/2018 [facility] [...] physician directed care plan. Esthela Corea RN LITIES TECHNICIAN Esthela Corea RN - 07/16/2018 4:00 PM CST Chucky paperwork started to PCP for signature Esthela Corea RN LITIES TECHNICIAN documented in this encounter Plan of [...] INR Point of 1.6 (A) 0.86 - [facility] 1.14 [facility] Specimen (Source) Anatomical Location Collection Method / Collectio n Time Received Time / Laterality Volume 07/16/2018 Froylan Louise MD LAB - BLOOD ORDERABLES Performing Organization Address City/State/ZIP Code Phon e Number [facility] [address] [place] [address] documented in this encounter Visit Diagnoses Not on filedocumented in this encounter Care Teams Crna Relationship Specialty Start Date End Date Froylan Louise MD PCP - General Family Practice 02/22/14 Froylan Louise MD PCP - Assigned PCP 03/13/14 08/25/18 Froylan Louise MD Assigned PCP 03/13/14 2 documented as of this encounter
--- OUTSIDE RECORDS SUMMARY | 2022-05-15 22:58 | XMS_ITS | Encounter Summary ---
:1955 Author Organization [place] Address [address] [place] [address] Care Team Providers Name Role Phone Froylan Louise MD Primary Care Provider Unavailable Froylan Louise MD Unavailable Unavailable Froylan Louise MD Unavailable Unavailable Encounter Details Date Type Department Care Team Description 07/27/2018 Anticoagulation Therapy [facility] Audrey [place] [address] [place] [address] Social History Tobacco Use Types [...] you attend buddhist or Patient refused 2020 hoahaoism services? Do [...] the Anticoagulation Therapy Visit) Wendi Lindsay RN OYEE RELATIONS ADMINISTRATOR documented in this encounter Plan of Treatment Upcoming Encounters Date Type Specialty Care Team Description 05/20/2022 Lab Lab documented as of this encounter Visit Diagnoses Not on filedocumented in this encounter Care Teams Tar Boiler Relationship Specialty Start Date End Date Froylan Louise MD PCP - General Family Practice 02/22/14 Froylan Louise MD PCP - Assigned PCP 03/13/14 08/25/18 Froylan oLuise MD Assigned PCP 03/13/14 2 documented as of this encounter
--- OUTSIDE RECORDS SUMMARY | 2022-05-15 22:58 | XMS_ITS | Encounter Summary ---
:1955 Author Organization [place] Address [address] [place] [address] Care Team Providers Name Role Phone Froylan Louise MD Primary Care Provider Unavailable Froylan Louise MD Unavailable Unavailable Froylan Louise MD Unavailable Unavailable Reason for Visit Reason Comments Recheck Medication Encounter Details Date Type Department Care Team Description 08/10/2018 Office Visit [facility] Froylan Louise Postthrom botic syndrome (Primary Dx); Clinic Chhaya Dubose MD Acute deep vein thrombosis ( DVT) of proximal vein of both lower extremities (H); [address] [facility] Insomnia, unspecified type; [place], [place] Other ulcerati ve colitis without complication (H); [address] 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 How many drinks containing alcohol [...] Comments Blood Pressure 144/72 08/10/2018 4:10 PM TUB ATTENDANT Pulse 69 08/10/2018 4:10 PM TUB ATTENDANT Temperature - - Respiratory Rate - - Oxygen Saturation 96% 08/10/2018 4:10 PM TUB ATTENDANT Inhaled Oxygen Concentration - - Weight 104.8 kg (231 lb) 08/10/2018 4:10 PM TUB ATTENDANT Height - - Body Mass Index 32.68 06/05/2018 3:03 PM TUB ATTENDANT documented in this encounter Progress Notes Froylan [...] [facility] ? ? Hyperlipidemia LDL goal <160 ??? [...] behalf by Sofia Altman, a trained medical insurance claims specialist. The creation of this document is based on the provider's statements to the medical insurance claims specialist. Sofia Altman 4:22 PM August 10, 2018 [...] in this document, created by the medical insurance claims specialist for me, accurately reflects the services I personally performed and the decisions made by me. I have reviewed and approved this document for accuracy prior to leaving the patient care area. August 10, 2018 4:45 PM Froylan Louise MD [facility] ATTENDANT documented in this encounter Plan of Treatment [...] (H) documented in this encounter Care Teams Larriman Helper Relationship Specialty Start Date End Date Froylan Louise MD PCP - General Family Practice 02/22/14 Froylan Louise MD PCP - Assigned PCP 03/13/14 08/25/18 Froylan Louise MD Assigned PCP 03/13/14 2 documented as of this encounter
--- OUTSIDE RECORDS SUMMARY | 2022-05-15 22:59 | XMS_ITS | Encounter Summary ---
:1955 Author Organization [place] Address [address] [place] [address] Care Team Providers Name Role Phone Froylan Louise MD Primary Care Provider Unavailable Froylan Louise MD Unavailable Unavailable Froylan Louise MD Unavailable Unavailable Encounter Details Date Type Department Care Team Description 04/03/2018 Anticoagulation Therapy Visit [address] [address] Social History Tobacco Use Types [...] Yeimi Daniel RN (02/12/2018) Next INR check 04/17/2018 [facility] [...] INR Point of 3.0 (A) 0.86 - [facility] Care 1.14 [facility] Specimen (Source) Anatomical Location Collection Method / Collectio n Time Received Time / Laterality Volume 04/03/2018 Froylan Louise MD LAB - BLOOD ORDERABLES Performing Organization Address City/State/ZIP Code Phon e Number [facility] [address] [place] [address] documented in this encounter Visit Diagnoses Not on filedocumented in this encounter Care Teams Bar Steward Relationship Specialty Start Date End Date Froylan Louise MD PCP - General Family Practice 02/22/14 Froylan Louise MD PCP - Assigned PCP 03/13/14 08/25/18 Froylan Louise MD Assigned PCP 03/13/14 2 documented as of this encounter
--- OUTSIDE RECORDS SUMMARY | 2022-05-15 22:59 | XMS_ITS | Encounter Summary ---
:1955 Author Organization [place] Address [address] [place] [address] Care Team Providers Name Role Phone Froylan Louise MD Primary Care Provider Unavailable Froylan Louise MD Unavailable Unavailable Froylan Louise MD Unavailable Unavailable Encounter Details Date Type Department Care Team Description 05/25/2018 Anticoagulation Therapy Visit [address] [address] Social History Tobacco Use Types [...] you attend moravian or Patient refused 2020 restorationism services? Do [...] the Anticoagulation Therapy Visit) Wendi Lindsay RN OISOTOPE PRODUCTION OPERATOR documented in this encounter Plan of [...] INR Point of 3.0 (A) 0.86 - [facility] 1.14 [facility] Specimen (Source) Anatomical Location Collection Method / Collectio n Time Received Time / Laterality Volume 05/25/2018 Froylan Louise MD LAB - BLOOD ORDERABLES Performing Organization Address City/State/ZIP Code Phon e Number [facility] [address] [place] [address] documented in this encounter Visit Diagnoses Not on filedocumented in this encounter Care Teams Procurement Buyer Relationship Specialty Start Date End Date Froylan Louise MD PCP - General Family Practice 02/22/14 Froylan Louise MD PCP - Assigned PCP 03/13/14 08/25/18 Froylan Louise MD Assigned PCP 03/13/14 2 documented as of this encounter
--- OUTSIDE RECORDS SUMMARY | 2022-05-15 22:59 | XMS_ITS | Encounter Summary ---
:1955 Author Organization [place] Address [facility] [place] [address] Care Team Providers Name Role Phone Froylan Louise MD Primary Care Provider Unavailable Froylan Louise MD Unavailable Unavailable Froylan Louise MD Unavailable Unavailable Reason for Visit Auth/Cert Specialty Diagnoses / Procedures Referred By Contact Refer red To Contact Surgery Diagnoses Fistula Rh Periop Services Procedures PROCEDURE PLACEHOLDER COLO-RECTAL [address] [place], [place] [address] Phone: Fax: Referral ID Status Reason Start Date Expiration Date Visits Requ ested Visits Authorized [id number] 1 1 Encounter Details Date Type Department Care Team Description 06/12/2018 Hospital Encounter [facility] Chase Suazo S/P colectomy [place] PreOP/PostOP MD Chast[place] (Primary Dx) [address] COLON RECTAL [place], [place] [facility] [address] [address] [facility][1] [phone] [address] Social History Tobacco Use Types Packs/Day Years [...] attend jehovah's witness or Patient refused 2020 holiness services? Do you belong to any clubs or Yes 05/25/2021 organizations such as jehovah's witness groups, unions, fraSalesWarp or athletic groups, or school groups? How [...] Comments Blood Pressure 148/88 06/12/2018 11:39 AM EYE GLASS FRAME POLISHER Pulse 57 06/12/2018 10:20 AM EYE GLASS FRAME POLISHER Temperature 36.8 ??C (98.2 ??F) 06/12/2018 11:39 AM EYE GLASS FRAME POLISHER Respiratory Rate 16 06/12/2018 11:39 AM EYE GLASS FRAME POLISHER Oxygen Saturation 100% 06/12/2018 11:39 AM EYE GLASS FRAME POLISHER Inhaled Oxygen Concentration - - Weight 104.1 kg (229 lb 8 oz) 06/12/2018 7:14 AM EYE GLASS FRAME POLISHER Height - - Body Mass Index 32.46 06/05/2018 3:03 PM EYE GLASS FRAME POLISHER documented in this encounter Discharge Instructions Discharge [...] You may slowly transition to use of hshv-zok-ifveovh medications for pain relief when you are no longer requiring narcotics for pain control. RETURN APPOINTMENT: Schedule a follow-up visit 2-3 weeks post-op. Office GLASS FRAME POLISHER documented in this encounter Medications at Time [...] 12/26/2017 01/09/2019 DMEIndications: Postthrombotic syndrome Fax to [facility] - [phone] order for Equipment being 1 Units 0 [...] have this taken care of. Pt discharged. GLASS FRAME POLISHER documented in this encounter Miscellaneous Notes Op [...] abscess cavity. STAFF SURGEON: Chase Suazo MD GAME AUTHOR: Sofia Dejesus MD, [facility] Corrective Surgery fellow. ANESTHESIA: General. ESTIMATED [...] MD MT: JACY Name: ANITA CHRISTINE Account: [id number] : 1955 Procedure Date: 06/12/2018 Document: [id number] cc: Chase Suazo MD GLASS FRAME POLISHER Brief Op Note - Sofia Dejesus MD - 06/12/2018 9:46 AM CST [facility] Brief Operative Note Pre-operative diagnosis: Fistula Post-operative diagnosis same Procedure: Procedure(s): Exam under anesthesia, pouchoscopy, Incision and drainage of abscess. POUCHOSCOPY Surgeon: Surgeon(s) and Role: * Chase Suazo MD - Primary * Sofia Dejesus MD - Fellow medical assistant Anesthesia: General Estimated blood loss: Minimal Drains: None Specimens: * No specimens in log * Findings: left anterolateral external fistula opening, unable to locate internal opening but evidence of fistula tract seen on exam with H2O2 to pouch internally. Complications: None. Implants: None. GLASS FRAME POLISHER documented in this encounter Plan of Treatment Upcoming Encounters Date Type Specialty Care Team Description 05/20/2022 Lab Lab documented as of this encounter Procedures Procedure Name Priority Date/Time Associated Comments Diagnosis PROVGI - PROVATION Routine 06/12/2018 8:37 AM Res ults for this GI EXAM EYE GLASS FRAME POLISHER procedure are i n the results section. ENDOSCOPY, POUCH, 06/12/2018 8:37 AM Fistula DIAGNOSTIC EYE GLASS FRAME POLISHER Special Needs Ht 5'10, Wt 229# EXAM UNDER ANESTHESIA, RECTUM 06/12/2018 8:37 AM EYE GLASS FRAME POLISHER F istula Special Needs Ht 5'10, Wt 229# documented in this encounter Results PROVGI - PROVATION GI EXAM (06/12/2018 8:37 AM EYE GLASS FRAME POLISHER) [facility] Method Time Signature PROVGI [facility] RADIO LOGY RESULTS Patient Name: nAita Christine ? Rayne valencia Date: 06/12/2018 8:37 AM ? Accou nt Number: [id number] Date of : 1955 ?Admit Type: Out [...] # [id number], ?Endora # [id number], SN # [id number] was introduced through ?the ileoanal anastomosis via [...] Procedure Code(s): ? --- Professional --- ? 67569, Endoscopic evaluation of s mall intestinal pouch [...] other nonspecific skin eruption CPT copyright 2017 [employer] [place] [employer]. All rights reserved. The codes documented in this report are prelimin dillon and upon investment banker review may be revised to meet current compliance requirements. Chase Suazo MD 06/12/2018 9:51:08 AM I was physically present for the entire viewing portion of t he exam. Chase Suazo MD Number of Addenda: 0 Note Initiated On: 06/12/2018 8:37 AM MRN: ?[id number] Procedure Date: ? 06/12/2018 8:37:02 AM Total Procedure Duration: 0 hours 3 minutes 50 seconds Estimated Blood Loss: ? Scope In: 9:05:18 AM Scope Out: 9:09:08 AM Specimen (Source) Anatomical Collection Method Collection Time Re ceived Time Location / / Volume Laterality 06/12/2018 8:37 AM EYE GLASS FRAME POLISHER Chase Suazo MD PROCEDURES Performing Organization Address City/State/ZIP Code Phon e Number RADIOLOGY RESULTS documented in this encounter Visit Diagnoses Diagnosis S/P colectomy - Primary Other postprocedural status documented in this encounter Administered Medications Inactive Administered Medications - up to 3 most recent administrations Medication Order MAR Action Action Date Dose Rate Site acetaminophen (TYLENOL) tablet 975 Given 06/12/2018 7:39 AM EYE GLASS FRAME POLISHER 975 mg mg 975 mg, Oral, ONCE, [...] mg 0.3-0.5 mg, Intravenous, EVERY 10 MIN HI N, other, acute pain.?May administer if Respiratory [...] Recently Administered Medications Times are shown in EYE GLASS FRAME POLISHER. Scheduled Medication Order 06/10/2018 06/11/2018 06/12/2018 acetaminophen [...] mg 0.3-0.5 mg, Intravenous, EVERY 10 MIN HI N, Starting Fri06/12/18 at 0946, Until Fri06/12/18 [...] II documented in this encounter Care Teams Conference Service Coordinator Relationship Specialty Start Date End Date Froylan Louise MD PCP - General Family Practice 02/22/14 Froylan Louise MD PCP - Assigned PCP 03/13/14 08/25/18 Froylan Louise MD Assigned PCP 03/13/14 2 documented as of this encounter
--- OUTSIDE RECORDS SUMMARY | 2022-05-15 22:59 | XMS_ITS | Encounter Summary ---
:1955 Author Organization [place] Address [address] [place] [address] Care Team Providers Name Role Phone Froylan Louise MD Primary Care Provider Unavailable Froylan Louise MD Unavailable Unavailable Froylan Louise MD Unavailable Unavailable Encounter Details Date Type Department Care Team Description 06/11/2018 Anticoagulation Therapy Visit [address] [address] Social History Tobacco Use Types [...] you attend orthodox or Patient refused 2020 faith services? Do [...] has night sweats again he will call floor tiling professional provider to discuss. INR Protime Date Value [...] physician directed care plan. Esthela Corea RN LAB RADIOLOGICAL TECHNOLOGIST documented in this encounter Plan of Treatment [...] INR Point of 1.2 (A) 0.86 - [facility] 1.14 [facility] Specimen (Source) Anatomical Location Collection Method / Collectio n Time Received Time / Laterality Volume 06/11/2018 Froylan Louise MD LAB - BLOOD ORDERABLES Performing Organization Address City/State/ZIP Code Phon e Number [facility] [address] [place] [address] documented in this encounter Visit Diagnoses Not on filedocumented in this encounter Care Teams Inspectors And Regulatory Officers Relationship Specialty Start Date End Date Froylan Louise MD PCP - General Family Practice 02/22/14 Froylan Louise MD PCP - Assigned PCP 03/13/14 08/25/18 Froylan Louise MD Assigned PCP 03/13/14 2 documented as of this encounter
--- OUTSIDE RECORDS SUMMARY | 2022-05-15 22:59 | XMS_ITS | Encounter Summary ---
:1955 Author Organization [place] Address [address] [place] [address] Care Team Providers Name Role Phone Froylan [...] you attend orthodoxy or Patient refused 2020 uatsdin services? Do [...] on filedocumented in this encounter Care Teams Algebra Tutor Relationship Specialty Start Date End Date Froylan Louise MD PCP - General Family Practice 02/22/14 Froylan Louise MD PCP - Assigned PCP 03/13/14 08/25/18 Froylan Louise MD Assigned PCP 03/13/14 2 documented as of this encounter
--- OUTSIDE RECORDS SUMMARY | 2022-05-15 22:59 | XMS_ITS | Encounter Summary ---
:1955 Author Organization [place] Address [address] [place] [address] Care Team Providers Name Role Phone Froylan [...] you attend restorationist or Patient refused 2020 gnosticist services? Do [...] on filedocumented in this encounter Care Teams Automotive Service Management Teacher Relationship Specialty Start Date End Date Froylan Louise MD PCP - General Family Practice 02/22/14 Froylan Louise MD PCP - Assigned PCP 03/13/14 08/25/18 Froylan Louise MD Assigned PCP 03/13/14 2 documented as of this encounter
--- OUTSIDE RECORDS SUMMARY | 2022-05-15 22:59 | XMS_ITS | Encounter Summary ---
:1955 Author Organization [place] Address [address] [place] [address] Care Team Providers Name Role Phone Froylan Louise MD Primary Care Provider Unavailable Froylan Louise MD Unavailable Unavailable Froylan Louise MD Unavailable Unavailable Reason for Visit Reason Onset Date Comments Medication Refill zolpidem (AMBIEN CR) 12.5 MG CR tablet Refill Request 05/04/2018 warfarin (COUMADIN) 7.5 MG tablet Encounter Details Date Type Department Care Team Description 05/04/2018 Refill [facility] Froylan Louise Ra, Medication Refill Chhaya VILLASEÑOR (zolpidem (AMBIEN CR) [id number] [facility] 12.5 MG CR tablet); [place] [address] Refill Request (warfarin [phone] (COUMADIN) 7.5 MG tablet) Social History Tobacco [...] PM CST Rx approved, fax to the [facility] Samir Grinder Lap ULE FILLER Telephone Encounter - Froylan Louise MD - 05/05/2018 10:31 AM CST Refilled. ULE FILLER Telephone Encounter - Wendi Lindsay RN - 05/04/2018 2:03 PM CST RX monitoring program ([place]) reviewed: PROFESSOR OF FLORICULTURE reviewed- no concerns [place] profile: [email or web address] ULE FILLER Telephone Encounter - Souleymane Mejia - 05/04/2018 1:39 PM CST Controlled Substance Refill Request for zolpidem (AMBIEN CR) 12.5 MG CR tablet Problem List Complete: No PROVIDER TO CONSIDER COMPLETION OF PROBLEM LIST AND OVERVIEW/CONTROLLED SUBSTANCE AGREEMENT Last Written Prescription Date: 03/09/18 Last Fill Quantity: 30 TABLET, # refills: 0 Last Office Visit with [facility] primary care provider: 03/23/2018 WITH LUCINDA. Future Office visit: Next 5 appointments (look out 90 days) May 18, 2018 2:50 PM CAPSULE FILLER Return Visit with Luis A Charles MD [facility] ([facility]) [address] [place] [address] Controlled substance agreement on file: No. Processing: Fax Rx to [facility] pharmacy PROFESSOR OF FLORICULTURE checked in past 3 months? No, route [...] 90 days) May 18, 2018 2:50 PM CAPSULE FILLER Return Visit with Luis A Charles MD [facility] ([facility]) [address] [place] [address] 30 tablet 0 Sig: TAKE 7.5 MG [...] is 18 years of age or older ULE FILLER documented in this encounter Plan of Treatment Upcoming Encounters Date Type Specialty Care Team Description 05/20/2022 Lab Lab documented as of this encounter Visit Diagnoses Diagnosis Acute deep vein thrombosis (DVT) of prox imal vein of both lower extremities (H) Insomnia, unspecified type documented in this encounter Care Teams Company Laborer Relationship Specialty Start Date End Date Froylan Louise MD PCP - General Family Practice 02/22/14 Froylan Louise MD PCP - Assigned PCP 03/13/14 08/25/18 Froylan Louise MD Assigned PCP 03/13/14 2 documented as of this encounter
--- OUTSIDE RECORDS SUMMARY | 2022-05-15 22:59 | XMS_ITS | Encounter Summary ---
:1955 Author Organization [place] Address [address] [facility] [place] [address] Care Team Providers Name Role Phone Froylan Louise MD Primary Care Provider Unavailable Froylan Louise MD Unavailable Unavailable Froylan Louise MD Unavailable Unavailable Reason for Visit Auth/Cert Specialty Diagnoses / Procedures Referred By Contact Refer red To Contact Surgery Diagnoses Fistula Rh Periop Services Procedures PROCEDURE PLACEHOLDER COLO-RECTAL [address] [place], [place] [address] Phone: Fax: Referral ID Status Reason Start Date Expiration Date Visits Requ ested Visits Authorized [id number] 1 1 Encounter Details Date Type Department Care Team Description 06/12/[address] [facility] Chase Suazo MD Exam under anesthesia, [place] COLON RECTAL SURG pouchoscopy, Incision [address] [facility] and drainage of abscess. [place] [address] [address] [place] [id number] [facility] [address] [place] [address] (Wo rk) Surgery Details Date/Time Status Location OR Service Patient Case Case Traum a Class Class Type Case? 06/12/18 8:20 Posted [facility] OR OR 09 [facility]-Rectal Same Day AM Surgery Panel 1 Procedure LRB Anes Op Region Wound Class Commen ts Exam under anesthesia, N/A General Anus II-Clean Cont aminated pouchoscopy, Incision and drainage of abscess. POUCHOSCOPY POUCHOSCOPY N/A General Rectum II-Clean Contaminated Surgeon Surgeon Role Service Panel Chase Suazo MD Primary [place]-Rectal 1 Special Needs Ht 5'10, Wt 229# [...] you attend nondenominational or Patient refused 2020 hinduism services? Do [...] Comments Blood Pressure 129/88 06/12/2018 7:14 AM VENEER SHEET REPAIRER Pulse - - Temperature 36.9 ??C (98.4 ??F) 06/12/2018 7:14 AM VENEER SHEET REPAIRER Respiratory Rate 16 06/12/2018 7:14 AM VENEER SHEET REPAIRER Oxygen Saturation 98% 06/12/2018 7:14 AM VENEER SHEET REPAIRER Inhaled Oxygen Concentration - - Weight 104.1 kg (229 lb 8 oz) 06/12/2018 7:14 AM VENEER SHEET REPAIRER Height - - Body Mass Index 32.46 06/05/2018 3:03 PM VENEER SHEET REPAIRER documented in this encounter Discharge Instructions Discharge [...] You may slowly transition to use of uuwc-[id number]-[id number] medications for pain relief when you are no longer requiring narcotics for pain control. RETURN APPOINTMENT: Schedule a follow-up visit 2-3 weeks post-op. Office ER SHEET REPAIRER documented in this encounter Medications at Time [...] 12/26/2017 01/09/2019 DMEIndications: Postthrombotic syndrome Fax to [facility] - [phone] order for Equipment being 1 Units 0 [...] have this taken care of. Pt discharged. ER SHEET REPAIRER documented in this encounter Miscellaneous Notes Op [...] abscess cavity. STAFF SURGEON: Chase Suazo MD PERSONNEL RECRUITER: Sofia Dejesus MD, [facility] Corrective Surgery fellow. ANESTHESIA: General. ESTIMATED BLOOD [...] JACY Name: ANITA CHRISTINE MRN: [id number] Account: [id number] : 1955 Procedure Date: 06/12/2018 Document: [id number] cc: Chase Suazo MD ER SHEET REPAIRER Brief Op Note - Sofia Dejesus MD - 06/12/2018 9:46 AM CST [facility] Brief Operative Note Pre-operative diagnosis: Fistula Post-operative diagnosis same Procedure: Procedure(s): Exam under anesthesia, pouchoscopy, Incision and drainage of abscess. POUCHOSCOPY Surgeon: Surgeon(s) and Role: * Chase Suazo MD - Primary * Sofia Dejesus MD - Fellow assistant front office manager Anesthesia: General Estimated blood loss: Minimal Drains: None Specimens: * No specimens in log * Findings: left anterolateral external fistula opening, unable to locate internal opening but evidence of fistula tract seen on exam with H2O2 to pouch internally. Complications: None. Implants: None. ER SHEET REPAIRER documented in this encounter Plan of Treatment Upcoming Encounters Date Type Specialty Care Team Description 05/20/2022 Lab Lab documented as of this encounter Procedures Procedure Name Priority Date/Time Associated Comments Diagnosis PROVGI - PROVATION Routine 06/12/2018 8:37 AM Res ults for this GI EXAM VENEER SHEET REPAIRER procedure are i n the results section. ENDOSCOPY, POUCH, 06/12/2018 8:37 AM Fistula DIAGNOSTIC VENEER SHEET REPAIRER Special Needs Ht 5'10, Wt 229# EXAM UNDER ANESTHESIA, RECTUM 06/12/2018 8:37 AM VENEER SHEET REPAIRER F istula Special Needs Ht 5'10, Wt 229# documented in this encounter Results PROVGI - PROVATION GI EXAM (06/12/2018 8:37 AM VENEER SHEET REPAIRER) [facility] Method Time Signature PROVGI [facility] RADIO LOGY RESULTS Patient Name: Anita Christine ? Proce dure Date: 06/12/2018 8:37 AM ? Accou nt Number: [id number] Date of : 1955 ?Admit Type: Out [...] # [id number], ?[place]ora # [id number], SN # [id number] was introduced through ?the ileoanal anastomosis via [...] Procedure Code(s): ? --- Professional --- ? 99723, Endoscopic evaluation of s mall intestinal pouch [...] other nonspecific skin eruption CPT copyright 2017 [employer]. All rights reserved. The codes documented in this report are prelimin dillon and upon older worker specialist review may be revised to meet current compliance requirements. Chase Suazo MD 06/12/2018 9:51:08 AM I was physically present for the entire viewing portion of t he exam. Chase Suazo MD Number of Addenda: 0 Note Initiated On: 06/12/2018 8:37 AM MRN: ?[id number] Procedure Date: ? 06/12/2018 8:37:02 AM Total Procedure Duration: 0 hours 3 minutes 50 seconds Estimated Blood Loss: ? Scope In: 9:05:18 AM Scope Out: 9:09:08 AM Specimen (Source) Anatomical Collection Method Collection Time Re ceived Time Location / / Volume Laterality 06/12/2018 8:37 AM VENEER SHEET REPAIRER Chase Suazo MD PROCEDURES Performing Organization Address City/State/ZIP Code Phon e Number RADIOLOGY RESULTS documented in this encounter Visit Diagnoses Not on filedocumented in this encounter Administered Medications Inactive Administered Medications - up to 3 most recent administrations Medication Order MAR Action Action Date Dose Rate Site acetaminophen (TYLENOL) tablet 975 Given 06/12/2018 7:39 AM VENEER SHEET REPAIRER 975 mg mg 975 mg, Oral, ONCE, On Fri06/12/18 at 0715, For 1 dose, IF acetaminophen (TYLENOL) not already order by Anesthesia. Maximum acetaminophen dose from all sources = 75 mg/kg/day not to exceed 4 grams/day., Pre-procedure bacitracin ointment Given 06/12/2018 10:19 AM VENEER SHEET REPAIRER 1 g Othe r (see comments) PRN, Starting on Fri06/12/18 at 1019, Intra-procedure bupivacaine (MARCAINE) 0.5% preservative free Given 9:40 AM VENEER SHEET REPAIRER 30 mLs injection PRN, Starting on Fri06/12/18 [...] mg 0.3-0.5 mg, Intravenous, EVERY 10 MIN CA N, other, acute pain.?May administer if Respiratory [...] Recently Administered Medications Times are shown in VENEER SHEET REPAIRER. Scheduled Medication Order 06/10/2018 06/11/2018 06/12/2018 acetaminophen [...] (New Bag - Provider: Ramy Strange APRN MANAGEMENT SERVICES TECHNICIAN)0930 (New Bag - Provider: Ramy Strange APRN MANAGEMENT SERVICES TECHNICIAN)0945 (Stopped - Provider: Ramy Strange APRN MANAGEMENT SERVICES TECHNICIAN) at 25 mL/hr, Intravenous, CONTINUOUS, IF patient [...] mg 0.3-0.5 mg, Intravenous, EVERY 10 MIN CA N, Starting Fri06/12/18 at 0946, Until Fri06/12/18 [...] II documented in this encounter Care Teams Automotive Sales Associate Relationship Specialty Start Date End Date Froylan Louise MD PCP - General Family Practice 02/22/14 Froylan Louise MD PCP - Assigned PCP 03/13/14 08/25/18 Froylan Louise MD Assigned PCP 03/13/14 2 documented as of this encounter
--- OUTSIDE RECORDS SUMMARY | 2022-05-15 22:59 | XMS_ITS | Encounter Summary ---
:1955 Author Organization [place] Address [address] [place] [address] Care Team Providers Name Role Phone Froylan Louise MD Primary Care Provider Unavailable Froylan Luoise MD Unavailable Unavailable Froylan Louise MD Unavailable Unavailable Reason for Visit Reason Comments Medication Refill Encounter Details Date Type Department Care Team Description 04/30/2018 Refill [facility] Froylan Louise Ra, MD Medication Refill [address] [address] Social History Tobacco Use [...] you attend mu-ism or Patient refused 2020 holiness services? Do [...] Receipt confirmed by pharmacy (04/28/2018 11:33 AM SURVEY METHODOLOGIST) Wendi Lindsay RN, BSN EY METHODOLOGIST documented in this encounter Plan of Treatment Upcoming Encounters Date Type Specialty Care Team Description 05/20/2022 Lab Lab documented as of this encounter Visit Diagnoses Diagnosis Acute deep vein thrombosis (DVT) of prox imal vein of both lower extremities (H) documented in this encounter Care Teams Continuing Education Instructor Relationship Specialty Start Date End Date Froylan Louise MD PCP - General Family Practice 02/22/14 Froylan Louise MD PCP - Assigned PCP 03/13/14 08/25/18 Froylan Louise MD Assigned PCP 03/13/14 2 documented as of this encounter
--- OUTSIDE RECORDS SUMMARY | 2022-05-15 22:59 | XMS_ITS | Encounter Summary ---
:1955 Author Organization [place] Address [facility] [place] [address] Care Team Providers Name Role Phone Froylan Louise MD Primary Care Provider Unavailable Froylan Louise MD Unavailable Unavailable Froylan Louise MD Unavailable Unavailable Reason for Visit Reason Onset Date Comments Refill Request 06/09/2018 triamcinolone (KENAL OG) 0.1 % external cream Encounter Details Date Type Department Care Team Description 06/09/2018 [facility] Froylan Louise Ra, Refill Request Chhaya VILLASEÑOR (triamcinolone (KENALOG) [phone] [facility] 0.1 % external cream) [place] [address] Social History Tobacco Use [...] you attend advent or Patient refused 2020 baptist services? Do [...] 06/10/2018 8:40 AM CST Prescription approved per [facility] Refill Protocol. Esthela Corea RN MANAGER Telephone Encounter - Thais Clifton - 06/09/2018 [...] & Orders section of the refill encounter. MANAGER documented in this encounter Plan of Treatment Upcoming Encounters Date Type Specialty Care Team Description 05/20/2022 Lab Lab documented as of this encounter Visit Diagnoses Diagnosis Lichen planus documented in this encounter Care Teams Manager Corporate Responsibility Relationship Specialty Start Date End Date Froylan Louise MD PCP - General Family Practice 02/22/14 Froylan Louise MD PCP - Assigned PCP 03/13/14 08/25/18 Froylan Louise MD Assigned PCP 03/13/14 2 documented as of this encounter
--- OUTSIDE RECORDS SUMMARY | 2022-05-15 22:59 | XMS_ITS | Encounter Summary ---
:1955 Author Organization [place] Address [address] [place] [address] Care Team Providers Name Role Phone Froylan [...] you attend orthodox or Patient refused 2020 christianity services? Do [...] on filedocumented in this encounter Care Teams Nuclear Technician Relationship Specialty Start Date End Date Froylan Louise MD PCP - General Family Practice 02/22/14 Froylan Louise MD PCP - Assigned PCP 03/13/14 08/25/18 Froylan Louise MD Assigned PCP 03/13/14 2 documented as of this encounter
--- OUTSIDE RECORDS SUMMARY | 2022-05-15 22:59 | XMS_ITS | Encounter Summary ---
:1955 Author Organization [place] Address [address] [place] [address] Care Team Providers Name Role Phone Froylan Louise MD Primary Care Provider Unavailable Froylan Louise MD Unavailable Unavailable Froylan Louise MD Unavailable Unavailable Reason for Visit Reason Onset Date Comments Medication Request 06/11/2018 Encounter Details Date Type Department Care Team Description 06/11/2018 Telephone [facility] Froylan Louise Ra, Medication Request Chhaya [address] [address] [place] [address] Social History Tobacco [...] you attend yazidi or Patient refused 2020 confucianism services? Do [...] at INR appt yesterday Esthela Corea RN REVIEW MANAGER Telephone Encounter - Isabel Alberto PA-C - 06/12/2018 12:24 PM CST He should probable follow-up with office visit to make sure nothing else is going on if this continues . dont see that as a side effect to lovenox REVIEW MANAGER Telephone Encounter - Wendi Lindsay RN - 06/11/2018 10:02 AM CST Pt calling stating since starting the lovenox the last 2 days ago he has been waking up drenched in sweat and wondering if this is normal. He has been on lovenox in the past and didn't have this. Please advise Wendi Lindsay RN, BSN REVIEW MANAGER documented in this encounter Plan of Treatment Upcoming Encounters Date Type Specialty Care Team Description 05/20/2022 Lab Lab documented as of this encounter Visit Diagnoses Not on filedocumented in this encounter Care Teams State Highway Police Officer Relationship Specialty Start Date End Date Froylan Louise MD PCP - General Family Practice 02/22/14 Froylan Louise MD PCP - Assigned PCP 03/13/14 08/25/18 Froylan Louise MD Assigned PCP 03/13/14 2 documented as of this encounter
--- OUTSIDE RECORDS SUMMARY | 2022-05-15 22:59 | XMS_ITS | Encounter Summary ---
:1955 Author Organization [place] Address [address] [place] [address] Care Team Providers Name Role Phone Froylan Louise MD Primary Care Provider Unavailable Froylan Louise MD Unavailable Unavailable Froylan Louise MD Unavailable Unavailable Encounter Details Date Type Department Care Team Description 05/11/2018 Anticoagulation Therapy Visit [address] [address] Social History Tobacco Use Types [...] you attend zoroastrian or Patient refused 2020 latter day services? [...] the Anticoagulation Therapy Visit) Wendi Lindsay RN GER GAMING documented in this encounter Plan of Treatment [...] INR Point of 3.4 (A) 0.86 - [facility] 1.14 [facility] Specimen (Source) Anatomical Location Collection Method / Collectio n Time Received Time / Laterality Volume 05/11/2018 Froylan Louise MD LAB - BLOOD ORDERABLES Performing Organization Address City/State/ZIP Code Phon e Number [facility] [address] [place] [address] documented in this encounter Visit Diagnoses Not on filedocumented in this encounter Care Teams Vice Chancellor Relationship Specialty Start Date End Date Froylan Louise MD PCP - General Family Practice 02/22/14 Froylan Louise MD PCP - Assigned PCP 03/13/14 08/25/18 Froylan Louise MD Assigned PCP 03/13/14 2 documented as of this encounter
--- OUTSIDE RECORDS SUMMARY | 2022-05-15 22:59 | XMS_ITS | Encounter Summary ---
:1955 Author Organization [place] Address [address] [place] [address] Care Team Providers Name Role Phone Froylan Louise MD Primary Care Provider Unavailable Froylan Louise MD Unavailable Unavailable Froylan Louise MD Unavailable Unavailable Reason for Visit Reason Onset Date Comments Refill Request 04/30/2018 Symbicort inhaler Encounter Details Date Type Department Care Team Description [facility], Refill Request Chhaya VILLASEÑOR (Symbicort inhaler) [address] [place] [address] Social History Tobacco Use [...] 3 months. RX resent. Yeimi Daniel RN TRIPPER documented in this encounter Plan of Treatment Upcoming Encounters Date Type Specialty Care Team Description 05/20/2022 Lab Lab documented as of this encounter Visit Diagnoses Diagnosis Mild persistent asthma without complicat ion Unspecified asthma documented in this encounter Care Teams Car Seat Coverer Relationship Specialty Start Date End Date Froylan Louise MD PCP - General Family Practice 02/22/14 Froylan Louise MD PCP - Assigned PCP 03/13/14 08/25/18 Frolyan Louise MD Assigned PCP 03/13/14 2 documented as of this encounter
--- OUTSIDE RECORDS SUMMARY | 2022-05-15 22:59 | XMS_ITS | Encounter Summary ---
:1955 Author Organization [facility] Address [address] [place] [address] Care Team Providers Name Role Phone Froylan [...] unspecified vein (H) Luis A Charles MD [address] [address] Referral ID Status Reason Start Date Expiration Date Visits Requ ested Visits Authorized [id number] Closed 05/27/2018 05/27/2019 1 1 ER ANALYST Reason for Visit Reason Comments RECHECK 3 month follow up - Closed Specialty Diagnoses / Procedures Referred By Contact Refer red To Contact Diagnoses Postthrombotic syndrome Anticardiolipin antibody positive Chronic deep vein thrombosis (DVT) of lower extremity, unspecified laterality, unspecified vein (H) Luis A Charles MD [address] [address] Referral ID Status Reason Start Date Expiration Date Visits Requ ested Visits Authorized [id number] Closed 01/27/2018 01/27/2019 1 1 Encounter Details Date Type Department Care Team Description 05/27/2018 Office Visit [facility] Araceli Luis A Other u lcerative colitis without complication (H) (Primary Dx); Vascular Clinic MD Ana Postthrombotic syndrome; [place] [address] [facility] Anticardiolipin antibody pos itive; [address] Chronic deep vein thrombosis (DVT) of lo wer extremity, unspecified laterality, unspecified vein (H) [address] [place] [phone] Social History Tobacco Use Types Packs/Day [...] you attend caodaism or Patient refused 2020 pentecostal services? Do [...] Comments Blood Pressure 145/89 05/27/2018 12:51 PM DEALER ANALYST Pulse 73 05/27/2018 12:51 PM DEALER ANALYST Temperature - - Respiratory Rate - - Oxygen Saturation 98% 05/27/2018 12:50 PM DEALER ANALYST Inhaled Oxygen Concentration - - Weight 104.8 kg (231 lb) 05/27/2018 12:50 PM DEALER ANALYST Height - - Body Mass Index 32.68 [...] (145-158)/(89-91) 145/89 SpO2: [98 %] 98 % @[id number]@ Constitutional: awake, alert, cooperative, no apparent distress, [...] the patient in 4 months from now Luis A Charles MD ER ANALYST documented in this encounter Nursing Notes Kathryn [...] Pain Score: Data Unavailable Kathryn Yang MA ER ANALYST documented in this encounter Plan of [...] (ABNORMAL) Lupus Anticoagulant Panel (06/05/2018 3:53 PM DEALER ANALYST) [facility] Method Time Signature Lupus Result Positive (A) NEG^Negat 06/08/2018 [facility] 12:44 PM DEALER ANALYST [facility] Comment: (Note) COMMENTS: INR is [...] 10 (factor X) assay. Rose Dorsey M.D. ??[phone] 06/08/2018 ? INR = ?1.82 ?Reference range: [...] specimen 06/05/2018 3:53 PM 018 3:54 (specimen) DEALER ANALYST PM DEALER ANALYST Luis A Charles MD LAB - BLOOD ORDERABLES Performing Organization Address City/State/ZIP Code Phon e Number [facility] [address] [place], [place] [id number] [place] [address] (ABNORMAL) CRP inflammation (06/05/2018 3:53 PM DEALER ANALYST) [facility] gist Method Time Signature CRP Inflammation 60.0 (H) 0.0 - 8.0 06/06/2018 [facility] mg/L 5:57 PM DEALER ANALYST [facility] Specimen Anatomical Collection Method Collection Time Receive d Time (Source) Location / / Volume Laterality Blood specimen 06/05/2018 3:53 PM 018 3:54 (specimen) DEALER ANALYST PM DEALER ANALYST Luis A Charles MD LAB - BLOOD ORDERABLES Performing Organization Address City/State/ZIP Code Phon e Number [facility] [address] [place], [place] [id number] [place] [address] (ABNORMAL) Comprehensive metabolic panel (06/05/2018 3:53 PM DEALER ANALYST) [facility] gist Method Time Signature Sodium 139 133 - 144 06/06/2018 [facility] mmol/L 2:21 PM [facility] Potassium 4.0 3.4 - 5.3 06/06/2018 [facility] mmol/L 2:21 PM [facility] Chloride 110 (H) 94 - 109 06/06/2018 [facility] mmol/L 2:21 PM [facility] Carbon Dioxide 24 20 - 32 06/06/2018 [facility] mmol/L 2:21 PM [facility] Anion Gap 5 3 - 14 06/06/2018 [facility] mmol/L 2:21 PM [facility] Glucose 99 70 - 99 06/06/2018 [facility] mg/dL 2:21 PM [facility] Urea Nitrogen 19 7 - 30 06/06/2018 [facility] mg/dL 2:21 PM [facility] Creatinine 0.81 0.66 - 06/06/2018 [facility] 1.25 mg/dL 2:21 PM [facility] GFR Estimate >90 >60 06/06/2018 [facility] mL/min/1.7 2:[address] Comment: Non GFR Calc GFR Estimate If >90 >60 mL/min/1.7m2 06/06/2018 2:21 P M [facility] Black [facility] Comment: GFR Calc Calcium 8.5 8.5 - 10.1 06/06/2018 2:21 PM [facility] mg/dL [facility] Bilirubin Total 0.9 0.2 - 1.3 mg/dL 06/06/2018 2:21 PM [facility] Albumin 3.4 3.4 - 5.0 g/dL 06/06/2018 2:[address] [facility] Protein Total 7.5 6.8 - 8.8 g/dL 06/06/2018 2:21 PM [facility] Alkaline Phosphatase 83 40 - 150 U/L 06/06/2018 2:21 PM [facility] ALT 27 0 - 70 U/L 06/06/2018 2:21 PM [facility] AST 28 0 - 45 U/L 06/06/2018 2:21 PM [facility] Specimen Anatomical Collection Method Collection Time Receive d Time (Source) Location / / Volume Laterality Blood specimen 06/05/2018 3:53 PM 018 3:54 (specimen) DEALER ANALYST PM DEALER ANALYST Luis A Charles MD LAB - BLOOD ORDERABLES Performing Organization Address City/State/ZIP Code Phon e Number [facility] [address] [place] [address] CBC with platelets differential (06/05/2018 3:53 PM DEALER ANALYST) [facility] gist Method Time Signature WBC 6.3 4.0 - 06/05/2018 [facility] 11.0 4:08 PM [facility] 10e9/L [place] RBC Count 4.94 4.4 - 5.9 06/05/2018 [place] 10e12/L 4:08 PM [facility] Hemoglobin 14.0 13.3 - 06/05/2018 [facility] 17.7 g/dL 4:08 PM [facility] Hematocrit 43.4 40.0 - 06/05/2018 [facility] 53.0 % 4:08 PM [facility] MCV 88 78 - 100 06/05/2018 [facility] fl 4:08 PM [facility] MCH 28.3 26.5 - 06/05/2018 [facility] 33.0 pg 4:08 PM [facility] MCHC 32.3 31.5 - 06/05/2018 [facility] 36.5 g/dL 4:08 PM [facility] RDW 14.9 10.0 - 06/05/2018 [facility] 15.0 % 4:08 PM [facility] Platelet Count 196 150 - 450 06/05/2018 [facility] 10e9/L 4:08 PM [facility] Diff Method Automated 06/05/2018 [facility] Method 4:08 PM DEALER ANALYST [facility] % Neutrophils 70.1 % 06/05/2018 [facility] 4:08 PM DEALER ANALYST [facility] % Lymphocytes 19.0 % 06/05/2018 [facility] 4:08 PM DEALER ANALYST [facility] % Monocytes 8.5 % 06/05/2018 [facility] 4:08 PM DEALER ANALYST [facility] % Eosinophils 2.1 % 06/05/2018 [facility] 4:08 PM DEALER ANALYST [facility] % Basophils 0.3 % 06/05/2018 [facility] 4:08 PM [facility] Absolute 4.4 1.6 - 8.3 06/05/2018 [facility] Neutrophil 10e9/L 4:08 PM [facility] Absolute 1.2 0.8 - 5.3 06/05/2018 [facility] Lymphocytes 10e9/L 4:08 PM [facility] Absolute 0.5 0.0 - 1.3 06/05/2018 [facility] Monocytes 10e9/L 4:08 PM [facility] Absolute 0.1 0.0 - 0.7 06/05/2018 [facility] Eosinophils 10e9/L 4:08 PM [facility] Absolute 0.0 0.0 - 0.2 06/05/2018 [facility] Basophils 10e9/L 4:08 PM [facility] Specimen Anatomical Collection Method Collection Time Receive d Time (Source) Location / / Volume Laterality Blood specimen 06/05/2018 3:53 PM 018 3:54 (specimen) DEALER ANALYST PM DEALER ANALYST Luis A Charles MD LAB - BLOOD ORDERABLES Performing Organization Address City/State/ZIP Code Phon e Number [facility] [address] [place] [address] Cardiolipin Kandice IgG and IgM (06/05/2018 3:53 PM DEALER ANALYST) P athologist Signature Cardiolipin <1.6 0.0 - 19.9 06/07/2018 [facility] IgG GPL-U/mL 10:36 AM [facility] Comment: Negative Cardiolipin Antibody 2.0 0.0 - 19.9 06/07/2018 10:36 A M [facility] IgM MPL-U/mL [facility] Comment: Negative Specimen Anatomical Collection Method Collection Time Receive d Time (Source) Location / / Volume Laterality Blood specimen 06/05/2018 3:53 PM 018 3:54 (specimen) DEALER ANALYST PM DEALER ANALYST Luis A Charles MD LAB - BLOOD ORDERABLES Performing Organization Address City/State/ZIP Code Phon e Number [facility] [address] documented in this encounter Visit Diagnoses Diagnosis Other ulcerative colitis without complic ation (H) - Primary 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
--- OUTSIDE RECORDS SUMMARY | 2022-05-15 22:59 | XMS_ITS | Encounter Summary ---
:1955 Author Organization [facility] Address [address] [facility] [place] [address] Care Team Providers Name Role Phone Froylan Louise MD Primary Care Provider Unavailable Froylan Louise MD Unavailable Unavailable Froylan Louise MD Unavailable Unavailable Reason for Visit Reason Onset Date Comments hold orders 04/07/2018 for upcoming procedu re Encounter Details Date Type Department Care Team Description 04/07/2018 Telephone [facility] Luis A Charles hold or ders (for Vascular Clinic Jesse Perez MD upcoming procedure) [address] [facility] [address] [place] [address] [place] [address] (Wo rk) Social History Tobacco [...] you attend jew or Patient refused 2020 taoism services? Do [...] on filedocumented in this encounter Care Teams Bow Maker Production Relationship Specialty Start Date End Date Froylan Louise MD PCP - General Family Practice 02/22/14 Froylan Louise MD PCP - Assigned PCP 03/13/14 08/25/18 Froylan Louise MD Assigned PCP 03/13/14 2 documented as of this encounter
--- OUTSIDE RECORDS SUMMARY | 2022-05-15 22:59 | XMS_ITS | Encounter Summary ---
:1955 Author Organization [facility] Address [address] [place] [address] Care Team Providers Name Role Phone Froylan Louise MD Primary Care Provider Unavailable Froylan Louise MD Unavailable Unavailable Froylan Louise MD Unavailable Unavailable Reason for Visit Reason Onset Date Comments INR RESULTS 05/25/2018 procedure Encounter Details Date Type Department Care Team Description 05/25/2018 Telephone [facility] Froylan Louise INR RESULTS (procedure) Clinic [facility] [place] [address] [place] [address] Social History Tobacco Use Types [...] for INR on 06/08 Esthela Corea RN ROLLER OPERATOR [employer] Telephone Encounter - Froylan Louise MD - 05/26/2018 7:25 AM CST It has been over 6 months since his last DVT with D-dimer normal last check and leg US with just chronic clot, CT clear of PE when checked. Ok to hold for 5 days for procedure. ROLLER OPERATOR [employer] Telephone Encounter - Esthela Corea RN - 05/25/2018 2:14 PM CST Per Colon Rectal surgeon would like 5 day hold of the coumadin. Esthela Corea RN ROLLER OPERATOR [employer] Telephone Encounter - Wendi Lindsay RN - [...] how many days he needs to hold. [id number], HASBLED=2 Please advise if pt would need to be bridged Wendi Lindsay RN, BSN ROLLER OPERATOR [employer] documented in this encounter Plan of Treatment Upcoming Encounters Date Type Specialty Care Team Description 05/20/2022 Lab Lab documented as of this encounter Visit Diagnoses Not on filedocumented in this encounter Care Teams Bag Loader Machine Operator Relationship Specialty Start Date End Date Froylan Louise MD PCP - General Family Practice 02/22/14 Froylan Louise MD PCP - Assigned PCP 03/13/14 08/25/18 Froylan Louise MD Assigned PCP 03/13/14 2 documented as of this encounter
--- OUTSIDE RECORDS SUMMARY | 2022-05-15 22:59 | XMS_ITS | Encounter Summary ---
:1955 Author Organization [facility] Address [address] [place] [address] Care Team Providers Name Role Phone Froylan Louise MD Primary Care Provider Unavailable Froylan Louise MD Unavailable Unavailable Froylan Louise MD Unavailable Unavailable Encounter Details Date Type Department Care Team Description 04/23/2018 Anticoagulation Therapy Visit [address] [phone] Social History Tobacco Use Types [...] you attend religion or Patient refused 2020 baptist services? Do [...] anal fistula surgery on 04/13 while in [place]. He has not f/u with anyone since [...] INR Point of 2.4 (A) 0.86 - [facility] 1.14 [facility] Specimen (Source) Anatomical Location Collection Method / Collectio n Time Received Time / Laterality Volume 04/23/2018 Froylan Louise MD LAB - BLOOD ORDERABLES Performing Organization Address City/State/ZIP Code Phon e Number [facility] [address] [place] [address] documented in this encounter Visit Diagnoses Not on filedocumented in this encounter Care Teams Barge Engineer Relationship Specialty Start Date End Date Froylan Louise MD PCP - General Family Practice 02/22/14 Froylan Louise MD PCP - Assigned PCP 03/13/14 08/25/18 Froylan Louise MD Assigned PCP 03/13/14 2 documented as of this encounter
--- OUTSIDE RECORDS SUMMARY | 2022-05-15 22:59 | XMS_ITS | Encounter Summary ---
:1955 Author Organization [place] Address [address] [place] [address] Care Team Providers Name Role Phone Froylan Louise MD Primary Care Provider Unavailable Froylan Louise MD Unavailable Unavailable Froylan Louise MD Unavailable Unavailable Reason for Visit Reason Onset Date Comments Nurse Advice Line 04/13/2018 [place] Encounter Details Date Type Department Care Team Description 04/13/2018 Telephone [facility] Froylan Louise Nurs e Advice Line Clinic Chh[facility] (franca [place]de) [address] [place] [address] Social History Tobacco Use Types [...] you attend yazidi or Patient refused 2020 amish services? Do [...] 04/13/2018 8:57 AM CDT Pt calling from [place] stating he is having surgery today at [...] on filedocumented in this encounter Care Teams Produce Team Lead Relationship Specialty Start Date End Date Froylan Louise MD PCP - General Family Practice 02/22/14 Froylan Louise MD PCP - Assigned PCP 03/13/14 08/25/18 Froylan Louise MD Assigned PCP 03/13/14 2 documented as of this encounter
--- OUTSIDE RECORDS SUMMARY | 2022-05-15 22:59 | XMS_ITS | Encounter Summary ---
:1955 Author Organization [facility] Address [address] [place] [address] Care Team Providers Name Role Phone Froylan Louise MD Primary Care Provider Unavailable Froylan Louise MD Unavailable Unavailable Froylan Louise MD Unavailable Unavailable Reason for Visit Reason Comments Pre-Op Exam Encounter Details Date Type Department Care Team Description 06/05/2018 Office Visit [facility] Froylan Louise Preop gen eral physical exam (Primary Dx); Clinic Chhaya Dubose MD Postthrombotic syndrome; [id number] [facility] Anticardiolipin antibody pos itive; [place], [place] Chronic deep v ein thrombosis (DVT) [...] you attend caodaism or Patient refused 2020 yarsani services? Do [...] Comments Blood Pressure 128/78 06/05/2018 3:03 PM PSYCHOLOGIST DEVELOPMENTAL Pulse 78 06/05/2018 3:03 PM PSYCHOLOGIST DEVELOPMENTAL Temperature 36.9 ??C (98.5 ??F) 06/05/2018 3:03 PM PSYCHOLOGIST DEVELOPMENTAL Respiratory Rate 16 06/05/2018 3:03 PM PSYCHOLOGIST DEVELOPMENTAL Oxygen Saturation 98% 06/05/2018 3:03 PM PSYCHOLOGIST DEVELOPMENTAL Inhaled Oxygen Concentration - - Weight 102.1 kg (225 lb) 06/05/2018 3:03 PM PSYCHOLOGIST DEVELOPMENTAL Height 179.1 cm (5' 10.5) 06/05/2018 3:03 PM PSYCHOLOGIST DEVELOPMENTAL Body Mass Index 31.83 06/05/2018 3:03 PM PSYCHOLOGIST DEVELOPMENTAL documented in this encounter Patient Instructions Patient InstructionsBerto Daniel, PHYSICAL THERAPY NURSE - 06/05/2018 3:00 PM CST Before Your [...] lovenox until coumadin is within therapeutic range. HOLOGIST DEVELOPMENTAL documented in this encounter Progress Notes Froylan Louise MD - 06/05/2018 3:00 PM CST [facility] [id number] [place] [id number] Dept: [phone] PRE-OP EVALUATION: Today's date: 06/05/2018 Virgil Christine (: 1955) presents for pre-operative evaluation assessment as requested by Dr. Suazo. He requires evaluation and anesthesia risk assessment prior to undergoing surgery/procedure for treatment of [place]-rectal . Fax number for surgical facility: not [...] Problem List Diagnosis Date Noted ??? [facility] 07/16/2011 Priority: High EMERGENCY CARE PLAN Presenting Problem Signs and Symptoms Treatment Plan Questions or conerns during clinic hours I will call the clinic directly Questions or conerns outside clinic hours I will call the 24 hour nurse line at [phone] Patient needs to schedule an appointment I will call the 24 hour scheduling team at [phone] orclinic directly Same day treatment I will call the clinic first, nurse line if after hours, urgent care and expresscare if needed DX V65.8 REPLACED WITH [id number] [facility] (09/28/2012) ??? Chronic deep vein [...] pair knee high 20-30 mmHg Fax to [facility] - [phone] 2 Units 0 ??? order for DME [...] his behalf by Sofia Altman, a trained biomedical equipment specialist. The creation of this document is based on the provider's statements to the biomedical equipment specialist. Sofia Altman 3:22 PM June 05, 2018 [...] cardiovascular risks for perioperative complications such as (MD, PE, VFib and 3?? AV Block): No [...] information in this document, created by the biomedical equipment specialist for me, accurately reflects the services I personally performed and the decisions made by me. I have reviewed and approved this document for accuracy prior to leaving the patient care area. June 05, 2018 3:52 PM Signed Electronically by: Froylan Louise MD Copy of this evaluation report is provided to requesting physician. [facility] Preop Guidelines Revised Cardiac Risk Index HOLOGIST DEVELOPMENTAL Carolin Dawson - 06/05/2018 3:00 PM CST No need to fax, surgery is being done at [facility]. Carolin Dawson Pickling Operator HOLOGIST DEVELOPMENTAL documented in this encounter Plan of Treatment Upcoming Encounters Date Type Specialty Care Team Description 05/20/2022 Lab Lab documented as of this encounter Procedures Procedure Name Priority Date/Time Associated Diagnosis Comme nts CARDIOLIPIN TERRA IGG Routine 06/05/2018 3:53 Postthrombotic Res ults for this AND IGM PM PSYCHOLOGIST DEVELOPMENTAL syndrome procedure are in Anticardiolipin the results antibody positiv e section. Chronic deep vein thrombosis (DVT) of lower extremity, unspecified laterality, unspecified vein (H) CBC WITH PLATELETS & Routine 06/05/2018 3:53 Postthrombotic Re sults for this DIFFERENTIAL PM PSYCHOLOGIST DEVELOPMENTAL syndrome procedure are in Anticardiolipin the results antibody positiv e section. Chronic deep vein thrombosis (DVT) of lower extremity, unspecified laterality, unspecified vein (H) LUPUS ANTICOAGULANT Routine 06/05/2018 3:53 Postthrombotic Res ults for this PANEL PM PSYCHOLOGIST DEVELOPMENTAL syndrome procedure are in Anticardiolipin the results antibody positiv e section. Chronic deep vein thrombosis (DVT) of lower extremity, unspecified laterality, unspecified vein (H) CRP INFLAMMATION Routine 06/05/2018 3:53 Postthrombotic Result s for this PM PSYCHOLOGIST DEVELOPMENTAL syndrome procedure are in Anticardiolipin the results antibody positiv e section. Chronic deep vein thrombosis (DVT) of lower extremity, unspecified laterality, unspecified vein (H) COMPREHENSIVE Routine 06/05/2018 3:53 Postthrombotic Results f or this METABOLIC PANEL PM PSYCHOLOGIST DEVELOPMENTAL syndrome procedure are in Anticardiolipin the results antibody positiv e section. Chronic deep vein thrombosis (DVT) of lower extremity, unspecified laterality, unspecified vein (H) EKG 12-LEAD COMPLETE Routine 06/05/2018 Preop general physic al Results for this W/READ - CLINICS exam procedure a re in the results section. documented in this encounter Results Cardiolipin Terra IgG and IgM (06/05/2018 3:53 PM [facility]) athologist Signature Cardiolipin <1.6 0.0 - 19.9 06/07/2018 [facility] IgG GPL-U/mL 10:36 AM [facility] Comment: Negative Cardiolipin Antibody 2.0 0.0 - 19.9 06/07/2018 10:36 A M [facility] IgM MPL-U/mL [facility] Comment: Negative Specimen Anatomical Collection Method Collection Time Receive d Time (Source) Location / / Volume Laterality Blood specimen 06/05/2018 3:53 PM 018 3:54 (specimen) PSYCHOLOGIST DEVELOPMENTAL PM PSYCHOLOGIST DEVELOPMENTAL Luis A Charles MD LAB - BLOOD ORDERABLES Performing Organization Address City/State/ZIP Code Phon e Number [facility] [address] [place], [place] [id number] [place] [address] CBC with platelets differential (06/05/2018 3:53 PM PSYCHOLOGIST DEVELOPMENTAL) [facility] gist Method Time Signature WBC 6.3 4.0 - 06/05/2018 [facility] 11.0 4:08 PM PSY[facility] DEVEL[facility]AL CLINICS 10e9/L [place] RBC Count 4.94 4.4 - 5.9 06/05/2018 [facility] 10e12/L 4:08 PM PSYCHOLOGIST DEVELOPMENTAL [facility] Hemoglobin 14.0 13.3 - 06/05/2018 [facility] 17.7 g/dL 4:08 PM PSYCHOLOGIST DEVELOPMENTAL [facility] Hematocrit 43.4 40.0 - 06/05/2018 [facility] 53.0 % 4:08 PM PSYCHOLOGIST DEVELOPMENTAL [facility] MCV 88 78 - 100 06/05/2018 [facility] fl 4:08 PM PSYCHOLOGIST DEVELOPMENTAL CLINICS [place] MCH 28.3 26.5 - 06/05/2018 [facility] 33.0 pg 4:08 PM PSYCHOLOGIST DEVELOPMENTAL [facility] MCHC 32.3 31.5 - 06/05/2018 [facility] 36.5 g/dL 4:08 PM PSYCHOLOGIST DEVELOPMENTAL [facility] RDW 14.9 10.0 - 06/05/2018 [facility] 15.0 % 4:08 PM PSYCHOLOGIST DEVELOPMENTAL [facility] Platelet Count 196 150 - 450 06/05/2018 [facility] 10e9/L 4:08 PM PSYCHOLOGIST DEVELOPMENTAL [facility] Diff Method Automated 06/05/2018 [facility] Method 4:08 PM PSYCHOLOGIST DEVELOPMENTAL [facility] % Neutrophils 70.1 % 06/05/2018 [facility] 4:08 PM PS[facility] DEVEL[facility] [place] % Lymphocytes 19.0 % 06/05/2018 [facility] 4:08 PM PSYCHOLOGIST DEVELOPMENTAL [facility] % Monocytes 8.5 % 06/05/2018 [facility] 4:08 PM [facility] DEVELOP[facility] [place] % Eosinophils 2.1 % 06/05/2018 [facility] 4:08 PM [facility]EL[facility] [place] % Basophils 0.3 % 06/05/2018 [facility] 4:08 PM PS[facility] DEVELOPMENT[facility] [place] Absolute 4.4 1.6 - 8.3 06/05/2018 [facility] Neutrophil 10e9/L 4:08 PM PS[facility]EL[facility] [place] Absolute 1.2 0.8 - 5.3 06/05/2018 [facility] Lymphocytes 10e9/L 4:08 PM PSYCHOLOGIST DEVELOPMENTAL [facility] Absolute 0.5 0.0 - 1.3 06/05/2018 [facility] Monocytes 10e9/L 4:08 PM [facility] Absolute 0.1 0.0 - 0.7 06/05/2018 [facility] Eosinophils 10e9/L 4:08 PM [facility] Absolute 0.0 0.0 - 0.2 06/05/2018 [facility] Basophils 10e9/L 4:08 PM [facility] Specimen Anatomical Collection Method Collection Time Receive d Time (Source) Location / / Volume Laterality Blood specimen 06/05/2018 3:53 PM 018 3:54 (specimen) PSYCHOLOGIST DEVELOPMENTAL PM PSYCHOLOGIST DEVELOPMENTAL Luis A Charles MD LAB - BLOOD ORDERABLES Performing Organization Address City/State/ZIP Code Phon e Number [facility] [address] [place] [address] (ABNORMAL) Comprehensive metabolic panel (06/05/2018 3:53 PM PSYCHOLOGIST DEVELOPMENTAL) [facility] Method Time Signature Sodium 139 133 - 144 06/06/2018 [facility] mmol/L 2:21 PM [facility] Potassium 4.0 3.4 - 5.3 06/06/2018 [facility] mmol/L 2:21 PM [facility] Chloride 110 (H) 94 - 109 06/06/2018 [facility] mmol/L 2:21 PM [facility] Carbon Dioxide 24 20 - 32 06/06/2018 [place] mmol/L 2:21 PM [facility] Anion Gap 5 3 - 14 06/06/2018 [place] mmol/L 2:21 PM [facility] Glucose 99 70 - 99 06/06/2018 [place] mg/dL 2:21 PM [facility] Urea Nitrogen 19 7 - 30 06/06/2018 [place] mg/dL 2:21 PM [facility] Creatinine 0.81 0.66 - 06/06/2018 [facility] 1.25 mg/dL 2:21 PM [facility] GFR Estimate >90 >60 06/06/2018 [place] mL/min/1.7 2:21 PM [facility] CLINICS m2 [facility] Comment: Non GFR Calc GFR Estimate If >90 >60 mL/min/1.7m2 06/06/2018 2:21 P M [facility] Black [facility] Comment: GFR Calc Calcium 8.5 8.5 - 10.1 06/06/2018 2:21 PM [facility] LINICS mg/dL [facility] Bilirubin Total 0.9 0.2 - 1.3 mg/dL 06/06/2018 2:21 PM [facility] Albumin 3.4 3.4 - 5.0 g/dL 06/06/2018 2:21 PM [facility] Protein Total 7.5 6.8 - 8.8 g/dL 06/06/2018 2:21 PM [facility] Alkaline Phosphatase 83 40 - 150 U/L 06/06/2018 2:21 PM [facility] ALT 27 0 - 70 U/L 06/06/2018 2:21 PM [place] [facility] AST 28 0 - 45 U/L 06/06/2018 2:21 PM [place] [facility] Specimen Anatomical Collection Method Collection Time Receive d Time (Source) Location / / Volume Laterality Blood specimen 06/05/2018 3:53 PM 018 3:54 (specimen) PSYCHOLOGIST DEVELOPMENTAL PM PSYCHOLOGIST DEVELOPMENTAL Luis A Charles MD LAB - BLOOD ORDERABLES Performing Organization Address City/State/ZIP Code Phon e Number [facility] [address] [place] [address] (ABNORMAL) CRP inflammation (06/05/2018 3:53 PM PSYCHOLOGIST DEVELOPMENTAL) [facility] gist Method Time Signature CRP Inflammation 60.0 (H) 0.0 - 8.0 06/06/2018 [facility] mg/L 5:57 PM PSYCHOLOGIST DEVELOPMENTAL [facility] Specimen Anatomical Collection Method Collection Time Receive d Time (Source) Location / / Volume Laterality Blood specimen 06/05/2018 3:53 PM 018 3:54 (specimen) PSYCHOLOGIST DEVELOPMENTAL PM PSYCHOLOGIST DEVELOPMENTAL Luis A Charles MD LAB - BLOOD ORDERABLES Performing Organization Address City/State/ZIP Code Phon e Number [facility] [address] [place], [place] [id number] [place] [address] (ABNORMAL) Lupus Anticoagulant Panel (06/05/2018 3:53 PM PSYCHOLOGIST DEVELOPMENTAL) [facility] Method Time Signature Lupus Result Positive (A) NEG^Negat 06/08/2018 [facility] 12:44 PM PSYCHOLOGIST DEVELOPMENTAL [facility] Comment: (Note) COMMENTS: INR is elevated. APTT [...] 10 (factor X) assay. Rose Dorsey M.D. ??[phone] 06/08/2018 ? INR = ?1.82 ?Reference range: [...] specimen 06/05/2018 3:53 PM 018 3:54 (specimen) PSYCHOLOGIST DEVELOPMENTAL PM PSYCHOLOGIST DEVELOPMENTAL Luis A Charles MD LAB - BLOOD ORDERABLES Performing Organization Address City/State/ZIP Code Phon e Number [facility] [address] EKG 12-lead complete w/read - Clinics [...] (H) documented in this encounter Care Teams Pastry Cook Apprentice Relationship Specialty Start Date End Date Froylan Louise MD PCP - General Family Practice 02/22/14 Froylan Louise MD PCP - Assigned PCP 03/13/14 08/25/18 Froylan Louise MD Assigned PCP 03/13/14 2 documented as of this encounter
--- OUTSIDE RECORDS SUMMARY | 2022-05-15 22:59 | XMS_ITS | Encounter Summary ---
:1955 Author Organization [facility] Address [address] [place] [address] Care Team Providers Name Role Phone Froylan [...] you attend restorationism or Patient refused 2020 christian services? Do [...] on filedocumented in this encounter Care Teams C Wpf Developer Relationship Specialty Start Date End Date Froylan Louise MD PCP - General Family Practice 02/22/14 Froylan Louise MD PCP - Assigned PCP 03/13/14 08/25/18 Froylan Louise MD Assigned PCP 03/13/14 2 documented as of this encounter
--- OUTSIDE RECORDS SUMMARY | 2022-05-15 22:59 | XMS_ITS | Encounter Summary ---
:1955 [facility] Address [address] [place] [address] Care Team Providers Name Role Phone Froylan Louise MD Primary Care Provider Unavailable Froylan Louise MD Unavailable Unavailable Froylan Louise MD Unavailable Unavailable Reason for Visit Reason Onset Date Comments Refill Request 04/27/2018 warfarin (COUMADIN) 5 MG tablet Encounter Details Date Type Department Care Team Description 04/27/2018 Refill [facility] Froylan Louise Ra, Refill Request (warfarin Chahya VILLASEÑOR (COUMADIN) 5 MG tablet) [address] [place] [address] Social History Tobacco [...] you attend orthodoxy or Patient refused 2020 restorationism services? Do [...] 04/28/2018 11:31 AM CST Prescription approved per [facility] Refill Protocol. Wendi Lindsay RN, BSN HEMISTRY TEACHER Telephone Encounter - Carlos Alberto Black - [...] 90 days) May 18, 2018 2:50 PM BIOCHEMISTRY TEACHER Return Visit with Luis A Charles MD [facility] ([facility] [address] [facility] [address] Sig: TAKE 5 MG TAB DAILY EXCEPT [...] age or older Carlos Alberto Black XRT HEMISTRY TEACHER documented in this encounter Plan of Treatment Upcoming Encounters Date Type Specialty Care Team Description 05/20/2022 Lab Lab documented as of this encounter Visit Diagnoses Diagnosis Acute deep vein thrombosis (DVT) of prox imal vein of both lower extremities (H) documented in this encounter Care Teams Morning Show Host Relationship Specialty Start Date End Date Froylan Louise MD PCP - General Family Practice 02/22/14 Froylan Louise MD PCP - Assigned PCP 03/13/14 08/25/18 Froylan Louise MD Assigned PCP 03/13/14 2 documented as of this encounter
--- OUTSIDE RECORDS SUMMARY | 2022-05-15 23:00 | XMS_ITS | Encounter Summary ---
:1955 Author Organization [facility] Address [address] [place] [address] Care Team Providers Name Role Phone Froylan Louise MD Primary Care Provider Unavailable Froylan Louise MD Unavailable Unavailable Froylan Louise MD Unavailable Unavailable Encounter Details Date Type Department Care Team Description 02/25/2018 Orders Only [facility] Per killian history of DVT (deep vein thrombosis); [facility] Long-term (current) use of a nticoagulants [Z79.01] [address] [place] [address] Social History Tobacco Use [...] you attend gnosticist or Patient refused 2020 orthodox services? Do [...] INR 3.20 (H) 0.86 - 1.14 02/25/2018 [place] 3:55 PM CDT [facility] Comment: This [...] Organization Address City/State/ZIP Code Phon e Number [facility] [address] [place] [address] documented in this encounter Visit Diagnoses Diagnosis Personal history of DVT (deep vein throm bosis) Personal history of venous thrombosis an d embolism Long-term (current) use of anticoagulant s [Z79.01] Encounter for long-term (current) use of anticoagulants documented in this encounter Care Teams Vehicle Leasing And Rental Manager Relationship Specialty Start Date End Date Froylan Louise MD PCP - General Family Practice 02/22/14 Froylan Louise MD PCP - Assigned PCP 03/13/14 08/25/18 Froylan Louise MD Assigned PCP 03/13/14 2 documented as of this encounter
--- OUTSIDE RECORDS SUMMARY | 2022-05-15 23:00 | XMS_ITS | Encounter Summary ---
:1955 Author Organization [facility] Address [address] [place] [address] Care Team Providers Name Role Phone Froylan Louise MD Primary Care Provider Unavailable Froylan Louise MD Unavailable Unavailable Froylan Louise MD Unavailable Unavailable Reason for Visit Reason Onset Date Comments Refill Request 03/03/2018 REBECCA HFA 17 MCG/ ACT Inhaler Encounter Details Date Type Department Care Team Description 03/03/2018 Refill [facility] Froylan Louise Ra y, Refill Request (REBECCA Shaver MD HFA 17 MCG/ACT Inhaler) [address] [place] [address] Social History Tobacco Use [...] asthma documented in this encounter Care Teams Supervisor Pleating Relationship Specialty Start Date End Date Froylan Louise MD PCP - General Family Practice 02/22/14 Froylan Louise MD PCP - Assigned PCP 03/13/14 08/25/18 Froylan Louise MD Assigned PCP 03/13/14 2 documented as of this encounter
--- OUTSIDE RECORDS SUMMARY | 2022-05-15 23:00 | XMS_ITS | Encounter Summary ---
:1955 Author Organization [facility] Address [address] [place] [address] Care Team Providers Name Role Phone Froylan Louise MD Primary Care Provider Unavailable Froylan Louise MD Unavailable Unavailable Froylan Louise MD Unavailable Unavailable Encounter Details Date Type Department Care Team Description 03/11/2018 Anticoagulation Therapy [facility] Long-term (current) Visit [facility] use of anticoagulants [address] [place] [address] Social History Tobacco Use Types [...] INR Point of 1.8 (A) 0.86 - [facility] 1.14 [facility] Specimen (Source) Anatomical Location Collection Method / Collectio n Time Received Time / Laterality Volume 03/11/2018 Froylan Louise MD LAB - BLOOD ORDERABLES Performing Organization Address City/State/ZIP Code Phon e Number [facility] [address] [place] [address] documented in this encounter Visit Diagnoses Diagnosis Long-term (current) use of anticoagulant s Encounter for long-term (current) use of anticoagulants documented in this encounter Care Teams Product Owner Relationship Specialty Start Date End Date Froylan Louise MD PCP - General Family Practice 02/22/14 Froylan Louise MD PCP - Assigned PCP 03/13/14 08/25/18 Froylan Louise MD Assigned PCP 03/13/14 2 documented as of this encounter
--- OUTSIDE RECORDS SUMMARY | 2022-05-15 23:00 | XMS_ITS | Encounter Summary ---
:1955 Author Organization [facility] Address [address] [place] [address] Care Team Providers Name Role Phone Froylan Louise MD Primary Care Provider Unavailable Froylan Louise MD Unavailable Unavailable Froylan Louise MD Unavailable Unavailable Encounter Details Date Type Department Care Team Description 02/11/2018 Anticoagulation Therapy [facility] Audrey Louise Long-term (current) Visit Clinic Chhaya Dubose MD use of anticoagulants [address] [place] [address] Social History Tobacco Use Types [...] you attend quaker or Patient refused 2020 sikhism services? Do [...] anticoagulants documented in this encounter Care Teams Hr Leader Relationship Specialty Start Date End Date Froylan Louise MD PCP - General Family Practice 02/22/14 Froylan Louise MD PCP - Assigned PCP 03/13/14 08/25/18 Froylan Louise MD Assigned PCP 03/13/14 2 documented as of this encounter
--- OUTSIDE RECORDS SUMMARY | 2022-05-15 23:00 | XMS_ITS | Encounter Summary ---
:1955 Author Organization [facility] Address [address] [place] [address] Care Team Providers Name Role Phone Froylan Louise MD Primary Care Provider Unavailable Frolyan Louise MD Unavailable Unavailable Froylan Louise MD Unavailable Unavailable Reason for Visit Reason Onset Date Comments Refill Request 03/21/2018 loperamide (IMODIUM) 2 MG capsule Encounter Details Date Type Department Care Team Description 03/21/2018 [facility] Froylan Louise Ra, Refill Request Chhaya VILLASEÑOR (loperamide (IMODIUM) [address] MG capsule) [place] [address] Social History Tobacco Use [...] you attend holiness or Patient refused 2020 baptism services? Do [...] PM CDT SHORT with Froylan Louise MD [facility] [address] [facility] [address] May 18, 2018 2:50 PM TANNERY WORKER Return Visit with Luis A Charles MD [facility] ([facility]) [address] [facility] [address] Routing refill request to provider for review/approval [...] system documented in this encounter Care Teams Circle Edger Relationship Specialty Start Date End Date Froylan Louise MD PCP - General Family Practice 02/22/14 Froylan Louise MD PCP - Assigned PCP 03/13/14 08/25/18 Froylan Louise MD Assigned PCP 03/13/14 2 documented as of this encounter
--- OUTSIDE RECORDS SUMMARY | 2022-05-15 23:00 | XMS_ITS | Encounter Summary ---
:1955 Author Organization [facility] Address [address] [place] [address] Care Team Providers Name Role Phone Froylan Louise MD Primary Care Provider Unavailable Froylan Louise MD Unavailable Unavailable Froylan Louise MD Unavailable Unavailable Encounter Details Date Type Department Care Team Description 01/22/2018 Anticoagulation Therapy [facility] Audrey Louise Long-term (current) Visit Clinic Chhaya Dubose MD use of anticoagulants [address] [place] [address] Social History Tobacco Use Types [...] you attend mandaeism or Patient refused 2020 mormonism services? Do [...] CLINIC VISIT Patient Name: Virgil Christine Date: 01/23/2018 Contact Type: Telephone SUBJECTIVE: Patient [...] anticoagulants documented in this encounter Care Teams Poultry Breeder Relationship Specialty Start Date End Date Froylan Louise MD PCP - General Family Practice 02/22/14 Froylan Louise MD PCP - Assigned PCP 03/13/14 08/25/18 Froylan Louise MD Assigned PCP 03/13/14 2 documented as of this encounter
--- OUTSIDE RECORDS SUMMARY | 2022-05-15 23:00 | XMS_ITS | Encounter Summary ---
:1955 Author Organization [place] Address [facility] [place] [address] Care Team Providers Name Role Phone Froylan Louise MD Primary Care Provider Unavailable Froylan Louise MD Unavailable Unavailable Froylan Louise MD Unavailable Unavailable Reason for Visit Reason Onset Date Comments Medication Follow-up 03/09/2018 Encounter Details Date Type Department Care Team Description 03/09/2018 Telephone [facility] Fredy Wilkes [facility] Follow-up Vascular Clinic Jesse Sharp MD [address] [place] [phone] [place] [id number] (Wo rk) Social History Tobacco Use Types [...] you attend presybeterian or Patient refused 2020 pentecostal services? Do [...] to reach patient: Home number on file [phone] (home) Best Time: Any time Can we leave a detailed message on this number? YES documented in this encounter Plan of Treatment Upcoming Encounters Date Type Specialty Care Team Description 05/20/2022 Lab Lab documented as of this encounter Visit Diagnoses Diagnosis Local infection of skin and subcutaneous tissue Unspecified local infection of skin and subcutaneous tissue documented in this encounter Care Teams Aids Nurse Relationship Specialty Start Date End Date Froylan Louise MD PCP - General Family Practice 02/22/14 Fryolan Louise MD PCP - Assigned PCP 03/13/14 08/25/18 Froylan Louise MD Assigned PCP 03/13/14 2 documented as of this encounter
--- OUTSIDE RECORDS SUMMARY | 2022-05-15 23:00 | XMS_ITS | Encounter Summary ---
:1955 Author Organization [place] Address [address] [place] [address] Care Team Providers Name Role Phone Froylan Louise MD Primary Care Provider Unavailable Froylan Louise MD Unavailable Unavailable Froylan Louise MD Unavailable Unavailable Encounter Details Date Type Department Care Team Description 01/15/2018 Orders Only [facility] Wily g-term (current) use of [facility] anticoagulants [address] [place] [address] Social History Tobacco Use [...] you attend anglican or Patient refused 2020 baptism services? Do [...] INR 2.20 (H) 0.86 - 1.14 01/15/2018 [place] 4:18 PM CDT [facility] Comment: This test is intended for [...] Organization Address City/State/ZIP Code Phon e Number [facility] [address] [place] [address] documented in this encounter Visit Diagnoses Diagnosis Long-term (current) use of anticoagulant s Encounter for long-term (current) use of anticoagulants documented in this encounter Care Teams Flare Breaker Relationship Specialty Start Date End Date Froylan Louise MD PCP - General Family Practice 02/22/14 Froylan Louise MD PCP - Assigned PCP 03/13/14 08/25/18 Froylan Louise MD Assigned PCP 03/13/14 2 documented as of this encounter
--- OUTSIDE RECORDS SUMMARY | 2022-05-15 23:00 | XMS_ITS | Encounter Summary ---
:1955 Author Organization [place] Address [facility] [place] [address] Care Team Providers Name Role Phone Froylan Louise MD Primary Care Provider Unavailable Froylan Louise MD Unavailable Unavailable Froylan Louise MD Unavailable Unavailable Reason for Visit Reason Onset Date Comments Refill Request 03/08/2018 zolpidem (AMBIEN CR) 12.5 MG CR tablet Encounter Details Date Type Department Care Team Description 03/08/2018 Refill [facility] Froylan Louise Ra, Refill Request (zolpidem Chhaya VILLASEÑOR (AMBIEN CR) 12.5 MG CR [address] [facility] tablet) [place] [address] Social History Tobacco Use [...] 03/09/2018 1:18 PM CDT rx faxed to [phone]. KENYATTA Villaseñor Telephone Encounter - Wendi Lindsay RN - 03/09/2018 7:19 AM CDT RX monitoring program ([place]) reviewed: TIP BANDER reviewed- no concerns [place] profile: [email or web address] Telephone Encounter - Thais Ayala - 03/08/2018 11:02 AM CDT Controlled Substance Refill Request for zolpidem (AMBIEN CR) 12.5 MG CR tablet Problem List Complete: No PROVIDER TO CONSIDER COMPLETION OF PROBLEM LIST AND OVERVIEW/CONTROLLED SUBSTANCE AGREEMENT Last Written Prescription Date: 12/10/2017 Last Fill Quantity: 30 tablet, # refills: 0 Last Office Visit with [facility] primary care provider: 12/10/2017Dani Controlled substance agreement on file: No. Processing: Staff will hand deliver Rx to on-site pharmacy TIP BANDER checked in past 3 months? No, route to RN documented in this encounter Plan of Treatment Upcoming Encounters Date Type Specialty Care Team Description 05/20/2022 Lab Lab documented as of this encounter Visit Diagnoses Diagnosis Insomnia, unspecified type documented in this encounter Care Teams Iuss Master Analyst Relationship Specialty Start Date End Date Froylan Louise MD PCP - General Family Practice 02/22/14 Froylan Louise MD PCP - Assigned PCP 03/13/14 08/25/18 Froylan Louise MD Assigned PCP 03/13/14 2 documented as of this encounter
--- OUTSIDE RECORDS SUMMARY | 2022-05-15 23:00 | XMS_ITS | Encounter Summary ---
:1955 Author Organization [place] Address [facility] [place] [address] Care Team Providers Name Role Phone Froylan [...] Embolism w Contrast CT Chest w Contrast [address] [place] [id number] [place], [place] [phone] Phone: Referral ID Status Reason Start Date Expiration Date Visits Requ ested Visits Authorized [id number] Closed 03/11/2018 03/11/2019 1 1 Reason for [...] Embolism w Contrast CT Chest w Contrast [address] [place] [address] [place], [place] [phone] Phone: Referral ID Status Reason Start Date Expiration Date Visits Requ ested Visits Authorized [id number] Closed 03/11/2018 03/11/2019 1 1 Encounter Details Date Type Department Care Team Description 03/12/2018 Hospital Encounter [facility] Froylan Louise onic deep vein thrombosis (DVT) of lower extremity, unspecified laterality, unspecified vein (H); Audrey Dubose MD Personal history of DVT (gino p vein thrombosis); [address] Dyspnea, unspecified type [place] [phone] Social History Tobacco Use Types Packs/Day Years [...] you attend lutheran or Patient refused 2020 anabaptist services? Do [...] 12/26/2017 01/09/2019 DMEIndications: Postthrombotic syndrome Fax to [facility] - [phone] order for Equipment being 1 Units 0 [...] embolism. 2. Suspected mild or early coronary hcris ry calcification. 3. Several tiny pulmonary nodules, [...] scan. documented in this encounter Care Teams Lead C Developer Relationship Specialty Start Date End Date Froylan Louise MD PCP - General Family Practice 02/22/14 Froylan Louise MD PCP - Assigned PCP 03/13/14 08/25/18 Froylan Louise MD Assigned PCP 03/13/14 2 documented as of this encounter
--- OUTSIDE RECORDS SUMMARY | 2022-05-15 23:00 | XMS_ITS | Encounter Summary ---
:1955 Author Organization [place] Address [address] [place] [address] Care Team Providers Name Role Phone Froylan Louise MD Primary Care Provider Unavailable Froylan Louise MD Unavailable Unavailable Froylan Louise MD Unavailable Unavailable Reason for Visit Reason Onset Date Comments Nurse Advice Line 01/16/2018 Encounter Details Date Type Department Care Team Description 01/16/2018 Telephone [facility] Froylan Louise Ra, MD Nurse Advice Line [address] [address] Social History Tobacco Use [...] you attend religion or Patient refused 2020 alevism services? Do [...] on filedocumented in this encounter Care Teams Shop And Alteration Tailor Relationship Specialty Start Date End Date Froylan Louise MD PCP - General Family Practice 02/22/14 Froylan Louise MD PCP - Assigned PCP 03/13/14 08/25/18 Froylan Louise MD Assigned PCP 03/13/14 2 documented as of this encounter
--- OUTSIDE RECORDS SUMMARY | 2022-05-15 23:00 | XMS_ITS | Encounter Summary ---
:1955 Author Organization [place] Address [address] [place] [address] Care Team Providers Name Role Phone Froylan Louise MD Primary Care Provider Unavailable Froylan Louise MD Unavailable Unavailable Froylan Louise MD Unavailable Unavailable Encounter Details Date Type Department Care Team Description 02/25/2018 Anticoagulation Therapy [facility] Audrey Louise Long-term (current) Visit Clinic Chhaya Dubose MD use of anticoagulants [address] [place] [address] Social History Tobacco Use Types [...] you attend yazidi or Patient refused 2020 jewish services? Do [...] anticoagulants documented in this encounter Care Teams Offset Printing Operator Relationship Specialty Start Date End Date Froylan Louise MD PCP - General Family Practice 02/22/14 Froylan Louise MD PCP - Assigned PCP 03/13/14 08/25/18 Froylan Louise MD Assigned PCP 03/13/14 2 documented as of this encounter
--- OUTSIDE RECORDS SUMMARY | 2022-05-15 23:00 | XMS_ITS | Encounter Summary ---
:1955 Author Organization [place] Address [address] [place] [address] Care Team Providers Name Role Phone Froylan Louise MD Primary Care Provider Unavailable Froylan Louise MD Unavailable Unavailable Froylan Louise MD Unavailable Unavailable Encounter Details Date Type Department Care Team Description 03/13/2018 [facility] Froylan Louise Ra, MD [place] [address] [place] [address] Social History Tobacco Use [...] you attend religion or Patient refused 2020 gnosticist services? Do [...] on filedocumented in this encounter Care Teams Welding Teacher Relationship Specialty Start Date End Date Froylan Louise MD PCP - General Family Practice 02/22/14 Froylan Louise MD PCP - Assigned PCP 03/13/14 08/25/18 Froylan Louise MD Assigned PCP 03/13/14 2 documented as of this encounter
--- OUTSIDE RECORDS SUMMARY | 2022-05-15 23:00 | XMS_ITS | Encounter Summary ---
:1955 Author Organization [place] Address [address] [place] [address] Care Team Providers Name Role Phone Froylan [...] Procedures US Lower Extremity Venous Duplex Bilateral [address] [place] [id number] [place], [place] [phone] Phone: Referral ID Status Reason Start Date Expiration Date Visits Requ ested Visits Authorized [id number] Closed 03/11/2018 03/11/2019 1 1 Reason for Visit Diagnostic Imaging Ultrasound - Closed Specialty Diagnoses / Procedures Referred By Contact Refer red To Contact Radiology. Diagnoses Chronic deep vein thrombosis (DVT) of lower extremity, unspecified laterality, unspecified vein (H) Personal history of DVT (deep vein thrombosis) Dyspnea, unspecified type Froylan Louise MD Ultrasound Procedures US Lower Extremity Venous Duplex Bilateral [address] [place] [id number] [place], [place] [phone] Phone: Referral ID Status Reason Start Date Expiration Date Visits Requ ested Visits Authorized [id number] Closed 03/11/2018 03/11/2019 1 1 Encounter Details Date Type Department Care Team Description 03/12/2018 Hospital Encounter [facility] Dani, Froylan Chr onic deep vein thrombosis [...] you attend sabianism or Patient refused 2020 jainism services? Do [...] 12/26/2017 01/09/2019 DMEIndications: Postthrombotic syndrome Fax to [facility] - [phone] order for Equipment being 1 Units 0 [...] type documented in this encounter Care Teams Dredge Hand Relationship Specialty Start Date End Date Froylan Louise MD PCP - General Family Practice 02/22/14 Froylan Louise MD PCP - Assigned PCP 03/13/14 08/25/18 Froylan Louise MD Assigned PCP 03/13/14 2 documented as of this encounter
--- OUTSIDE RECORDS SUMMARY | 2022-05-15 23:00 | XMS_ITS | Encounter Summary ---
:1955 Author Organization [place] Address [address] [place] [address] Care Team Providers Name Role Phone Froylan Louise MD Primary Care Provider Unavailable Froylan Louise MD Unavailable Unavailable Froylan Louise MD Unavailable Unavailable Encounter Details Date Type Department Care Team Description 02/05/2018 Anticoagulation Therapy [facility] Audrey Louise Long-term (current) Visit Clinic Chhaya Dubose MD use of anticoagulants [address] [place] [address] Social History Tobacco Use Types [...] you attend yarsani or Patient refused 2020 advent services? Do [...] anticoagulants documented in this encounter Care Teams Colorer Hides And Skins Relationship Specialty Start Date End Date Froylan Louise MD PCP - General Family Practice 02/22/14 Froylan Louise MD PCP - Assigned PCP 03/13/14 08/25/18 Froylan Louise MD Assigned PCP 03/13/14 2 documented as of this encounter
--- OUTSIDE RECORDS SUMMARY | 2022-05-15 23:00 | XMS_ITS | Encounter Summary ---
:1955 Author Organization [place] Address [address] [place] [address] Care Team Providers Name Role Phone Froylan Louise MD Primary Care Provider Unavailable Froylan Louise MD Unavailable Unavailable Froylan Louise MD Unavailable Unavailable Encounter Details Date Type Department Care Team Description 03/19/2018 Anticoagulation Therapy [facility] Long-term (current) Visit [facility] use of anticoagulants [address] [place] [address] Social History Tobacco Use Types [...] you attend sikhism or Patient refused 2020 mandaeism services? Do [...] INR Point of 2.1 (A) 0.86 - [facility] 1.14 [facility] Specimen (Source) Anatomical Location Collection Method / Collectio n Time Received Time / Laterality Volume 03/19/2018 Froylan Louise MD LAB - BLOOD ORDERABLES Performing Organization Address City/State/ZIP Code Phon e Number [facility] [address] [place] [address] documented in this encounter Visit Diagnoses Diagnosis Long-term (current) use of anticoagulant s Encounter for long-term (current) use of anticoagulants documented in this encounter Care Teams Community Assistant Relationship Specialty Start Date End Date Froylan Louise MD PCP - General Family Practice 02/22/14 Froylan Louise MD PCP - Assigned PCP 03/13/14 08/25/18 Froylan Louise MD Assigned PCP 03/13/14 2 documented as of this encounter
--- OUTSIDE RECORDS SUMMARY | 2022-05-15 23:00 | XMS_ITS | Encounter Summary ---
:1955 Author Organization [place] Address [address] [facility] [place] [address] Care Team Providers Name Role Phone Froylan Louise MD Primary Care Provider Unavailable Froylan Louise MD Unavailable Unavailable Froylan Louise MD Unavailable Unavailable Reason for Visit Reason Onset Date Comments Medication Question 02/24/2018 antibiotic Encounter Details Date Type Department Care Team Description 02/24/2018 Telephone [facility] Luis A Charles Medicat ion Question Vascular Clinic Jesse Perez MD (antibiotic) [address] [facility] [address] [place] [address] [place] [address] (Wo rk) Social History Tobacco [...] you attend advent or Patient refused 2020 samaritan services? Do [...] twice daily 875mg. Order entered patient sent behaview message with f/u date as advised Rossy Ott RN, BSN documented in this encounter Plan of Treatment Upcoming Encounters Date Type Specialty Care Team Description 05/20/2022 Lab Lab documented as of this encounter Visit Diagnoses Diagnosis Local infection of skin and subcutaneous tissue - Primary Unspecified local infection of skin and subcutaneous tissue documented in this encounter Care Teams Lamp Cleaner Relationship Specialty Start Date End Date Froylan Louise MD PCP - General Family Practice 02/22/14 Froylan Louise MD PCP - Assigned PCP 03/13/14 08/25/18 Froylan Louise MD Assigned PCP 03/13/14 2 documented as of this encounter
--- OUTSIDE RECORDS SUMMARY | 2022-05-15 23:00 | XMS_ITS | Encounter Summary ---
:1955 Author Organization [place] Address [address] [place] [address] Care Team Providers Name Role Phone Froylan Louise MD Primary Care Provider Unavailable Froylan Louise MD Unavailable Unavailable Froylan Louise MD Unavailable Unavailable Reason for Visit Reason Onset Date Comments Refill Request 01/23/2018 warfarin (COUMADIN) 5 MG tablet Encounter Details Date Type Department Care Team Description 01/23/2018 Refill [facility] Froylan Louise Ra y, Refill Request (warfarin Chhaya VILLASEÑOR (COUMADIN) 5 MG tablet) [address] [place] [address] Social History Tobacco Use [...] you attend sikhism or Patient refused 2020 oriental orthodox services? [...] Return Visit with Luis A Charles MD [facility] ([facility]) [address] [place] [phone] Sig: Take 2 tablets (10 mg) by [...] (H) documented in this encounter Care Teams Brick Paver Relationship Specialty Start Date End Date Froylan Louise MD PCP - General Family Practice 02/22/14 Froylan Louise MD PCP - Assigned PCP 03/13/14 08/25/18 Froylan Louise MD Assigned PCP 03/13/14 2 documented as of this encounter
--- OUTSIDE RECORDS SUMMARY | 2022-05-15 23:00 | XMS_ITS | Encounter Summary ---
:1955 Author Organization [place] Address [address] [place] [address] Care Team Providers Name Role Phone Froylan Louise MD Primary Care Provider Unavailable Froylan Louise MD Unavailable Unavailable Froylan Louise MD Unavailable Unavailable Reason for Visit Reason Onset Date Comments Refill Request 01/23/2018 warfarin (COUMADIN) 7.5 MG tablet Encounter Details Date Type Department Care Team Description 01/23/2018 Refill [facility] Froylan Louise Ra, Refill Request (warfarin Chhaya VILLASEÑOR (COUMADIN) 7.5 MG [address] [facility] tablet) [place] [address] Social History Tobacco Use [...] you attend judaism or Patient refused 2020 bahai services? Do [...] 01/23/2018 10:16 AM CDT Prescription approved per [facility] Refill Protocol. Wendi [place] RN, BSN Telephone [...] Return Visit with Luis A Charles MD [facility] ([facility]) [address] [facility] [phone] Sig: TAKE 1 TABLET (7.5 MG) BY [...] (H) documented in this encounter Care Teams Plastic Welding Machine Operator Relationship Specialty Start Date End Date Froylan Louise MD PCP - General Family Practice 02/22/14 Froylan Louise MD PCP - Assigned PCP 03/13/14 08/25/18 Froylan Louise MD Assigned PCP 03/13/14 2 documented as of this encounter
--- OUTSIDE RECORDS SUMMARY | 2022-05-15 23:00 | XMS_ITS | Encounter Summary ---
:1955 Author Organization [place] Address [facility] [place] [address] Care Team Providers Name Role Phone Froylan Louise MD Primary Care Provider Unavailable Froylan Louise MD Unavailable Unavailable Froylan Louise MD Unavailable Unavailable Reason for Visit Reason Comments RECHECK [address] Araceli dickey thrombotic syndrome & DVT Encounter Details Date Type Department Care Team Description 02/10/2018 Office Visit [facility] Luis A Charles diolipin antibody positive (Primary Dx); Vascular Clinic MD Ana Personal history of DVT (deep vein throm bosis); [place] [address] [facility] Local infection of skin and subcutaneous tissue [address] [facility] [address] [place] [phone] Social History Tobacco Use Types Packs/Day Years [...] you attend hindu or Patient refused 2020 latter day services? [...] (134)/(79) 134/79 SpO2: [98 %] 98 % @[id number]@ Constitutional: awake, alert, cooperative, no apparent distress, [...] tissue documented in this encounter Care Teams Compounding And Finishing Supervisor Relationship Specialty Start Date End Date Froylan Louise MD PCP - General Family Practice 02/22/14 Froylan Lousie MD PCP - Assigned PCP 03/13/14 08/25/18 Froylan Louise MD Assigned PCP 03/13/14 2 documented as of this encounter
--- OUTSIDE RECORDS SUMMARY | 2022-05-15 23:00 | XMS_ITS | Encounter Summary ---
:1955 Author Organization [place] Address [facility] [place] [address] Care Team Providers Name Role Phone Froylan Louise MD Primary Care Provider Unavailable Froylan Louise MD Unavailable Unavailable Froylan Louise MD Unavailable Unavailable Reason for Visit Reason Comments RECHECK Encounter Details Date Type Department Care Team Description 03/23/2018 Office Visit [facility] Froylan Louise Mild pers istent asthma without complication (Primary Dx); Clinic Chhaya Dubose MD SOB (shortness of breath); [address] [facility] Chronic deep vein thrombosis (DVT) of lower extremity, unspecified laterality, unspecified vein (H); [place], [place] [address] Social History [...] attend jehovah's witness or Patient refused 2020 caodaism services? Do [...] positive ??? Mild persistent asthma ??? [facility] ? ? Hyperlipidemia LDL goal <160 ??? [...] behalf by Sofia Altman, a trained medical sociologist. The creation of this document is based on the provider's statements to the medical sociologist. Sofia Altman 4:08 PM March 23, 2018 [...] in this document, created by the medical sociologist for me, accurately reflects the services I personally performed and the decisions made by me. I have reviewed and approved this document for accuracy prior to leaving the patient care area. March 23, 2018 4:45 PM Froylan Louise MD [facility] documented in this encounter Plan of Treatment Upcoming Encounters Date Type Specialty Care Team Description 05/20/2022 Lab Lab documented as of this encounter Procedures Procedure Name Priority Date/Time Associated Diagnosis Comme [facility] SPIROMETRY, BREATH Routine 03/23/2018 4:14 PM CDT SOB (shor tness of CAPACITY breath) documented in this encounter Visit Diagnoses Diagnosis Mild persistent asthma without complicat ion - Primary Unspecified asthma SOB (shortness of breath) Shortness of breath Chronic deep vein thrombosis (DVT) of lo wer extremity, unspecified laterality, unspecified vein (H) Chronic insomnia Insomnia, unspecified documented in this encounter Care Teams Personnel Director Relationship Specialty Start Date End Date Froylan Louise MD PCP - General Family Practice 02/22/14 Froylan Louise MD PCP - Assigned PCP 03/13/14 08/25/18 Froylan Louise MD Assigned PCP 03/13/14 2 documented as of this encounter
--- OUTSIDE RECORDS SUMMARY | 2022-05-15 23:00 | XMS_ITS | Encounter Summary ---
:1955 Author Organization [place] Address [address] [place] [address] Care Team Providers Name Role Phone Froylan Louise MD Primary Care Provider Unavailable Froylan Louise MD Unavailable Unavailable Froylan Louise MD Unavailable Unavailable Encounter Details Date Type Department Care Team Description 02/04/[address] [facility] Per killian history of DVT (deep vein thrombosis); [facility] Long-term (current) use of a nticoagulants [Z79.01] [address] [place] [address] Social History Tobacco Use [...] you attend catholic or Patient refused 2020 episcopal services? Do [...] INR 1.70 (H) 0.86 - 1.14 02/04/2018 [place] 4:00 PM CDT [facility] Comment: This test is intended [...] Organization Address City/State/ZIP Code Phon e Number [facility] [address] [place] [address] documented in this encounter Visit Diagnoses Diagnosis Personal history of DVT (deep vein throm bosis) Personal history of venous thrombosis an d embolism Long-term (current) use of anticoagulant s [Z79.01] Encounter for long-term (current) use of anticoagulants documented in this encounter Care Teams Embroidery Operator Relationship Specialty Start Date End Date Froylan Louise MD PCP - General Family Practice 02/22/14 Froylan Louise MD PCP - Assigned PCP 03/13/14 08/25/18 Froylan Louise MD Assigned PCP 03/13/14 2 documented as of this encounter
--- OUTSIDE RECORDS SUMMARY | 2022-05-15 23:00 | XMS_ITS | Encounter Summary ---
:1955 Author Organization [place] Address [address] [place] [address] Care Team Providers Name Role Phone Froylan Louise MD Primary Care Provider Unavailable Froylan Louise MD Unavailable Unavailable Froylan Louise MD Unavailable Unavailable Reason for Visit Reason Onset Date Comments Orders 01/21/2018 Encounter Details Date Type Department Care Team Description 01/21/2018 Telephone [facility] Froylan Louise Ra, MD Orders [address] [address] Social History Tobacco Use [...] anticoagulants documented in this encounter Care Teams Syrup Blender Relationship Specialty Start Date End Date Froylan Louise MD PCP - General Family Practice 02/22/14 Froylan Louise MD PCP - Assigned PCP 03/13/14 08/25/18 Froylan Louise MD Assigned PCP 03/13/14 2 documented as of this encounter
--- OUTSIDE RECORDS SUMMARY | 2022-05-15 23:00 | XMS_ITS | Encounter Summary ---
:1955 Author Organization [place] Address [address] [place] [address] Care Team Providers Name Role Phone Froylan Louise MD Primary Care Provider Unavailable Froylan Louise MD Unavailable Unavailable Froylan Louise MD Unavailable Unavailable Encounter Details Date Type Department Care Team Description 01/22/2018 Orders Only [facility] Per killian history of DVT (deep vein thrombosis); [facility] Long-term (current) use of a nticoagulants [Z79.01] [address] [place] [address] Social History Tobacco Use [...] you attend hinduism or Patient refused 2020 anabaptist services? Do [...] INR 2.30 (H) 0.86 - 1.14 01/22/2018 [place] 4:14 PM CDT [facility] Comment: This test is intended [...] Address City/State/ZIP Code Phon e Number [facility] [address] [place] [address] documented in this encounter Visit Diagnoses Diagnosis Personal history of DVT (deep vein throm bosis) Personal history of venous thrombosis an d embolism Long-term (current) use of anticoagulant s [Z79.01] Encounter for long-term (current) use of anticoagulants documented in this encounter Care Teams Supervisor Water [employer] Relationship Specialty Start Date End Date Froylan Louise MD PCP - General Family Practice 02/22/14 Froylan Louise MD PCP - Assigned PCP 03/13/14 08/25/18 Froylan Louise MD Assigned PCP 03/13/14 2 documented as of this encounter
--- OUTSIDE RECORDS SUMMARY | 2022-05-15 23:00 | XMS_ITS | Encounter Summary ---
:1955 Author Organization [place] Address [facility] [place] [address] Care Team Providers Name Role Phone Froylan [...] Embolism w Contrast CT Chest w Contrast [address] [place] [id number] [place], [place] [address] Phone: Referral ID Status Reason Start Date Expiration Date Visits Requ ested Visits Authorized [id number] Closed 03/11/2018 03/11/2019 1 1 iagnostic Imaging Ultrasound - Closed Specialty Diagnoses / Procedures Referred By Contact Refer red To Contact Radiology. Diagnoses Chronic deep vein thrombosis (DVT) of lower extremity, unspecified laterality, unspecified vein (H) Personal history of DVT (deep vein thrombosis) Dyspnea, unspecified type Froylan Louise MD Ultrasound Procedures US Lower Extremity Venous Duplex Bilateral [address] [place] [address] [place], [place] [phone] Phone: Referral ID Status Reason Start Date Expiration Date Visits Requ ested Visits Authorized [id number] Closed 03/11/2018 03/11/2019 1 1 Reason for Visit Reason Onset Date Comments Nurse Advice Line 03/11/2018 Encounter Details Date Type Department Care Team Description 03/11/2018 Telephone [facility] Froylan Louise Ra, MD Nurse Advice Line [place] [address] [place] [address] Social History Tobacco Use [...] you attend zoroastrian or Patient refused 2020 catholic services? Do [...] type documented in this encounter Care Teams Crossing Guard Relationship Specialty Start Date End Date Froylan Louise MD PCP - General Family Practice 02/22/14 Froylan Louise MD PCP - Assigned PCP 03/13/14 08/25/18 Froylan Louise MD Assigned PCP 03/13/14 2 documented as of this encounter
--- OUTSIDE RECORDS SUMMARY | 2022-05-15 23:00 | XMS_ITS | Encounter Summary ---
:1955 Author Organization [place] Address [address] [place] [address] Care Team Providers Name Role Phone Froylan Louise MD Primary Care Provider Unavailable Froylan Louise MD Unavailable Unavailable Froylan Louise MD Unavailable Unavailable Encounter Details Date Type Department Care Team Description 01/15/2018 Anticoagulation Therapy [facility] Audrey Louise Long-term (current) Visit Clinic Chhaya Dubose MD use of anticoagulants [address] [place] [address] Social History Tobacco Use Types [...] you attend adventism or Patient refused 2020 yazidi services? Do [...] anticoagulants documented in this encounter Care Teams Records Assistant Relationship Specialty Start Date End Date Froylan Louise MD PCP - General Family Practice 02/22/14 Froylan Louise MD PCP - Assigned PCP 03/13/14 08/25/18 Froylan Louise MD Assigned PCP 03/13/14 2 documented as of this encounter
--- OUTSIDE RECORDS SUMMARY | 2022-05-15 23:00 | XMS_ITS | Encounter Summary ---
:1955 Author Organization [place] Address [address] [place] [address] Care Team Providers Name Role Phone Froylan Louise MD Primary Care Provider Unavailable Froylan Louise MD Unavailable Unavailable Froylan Louise MD Unavailable Unavailable Encounter Details Date Type Department Care Team Description 02/11/2018 Orders Only [facility] Per killian history of DVT (deep vein thrombosis); [facility] Long-term (current) use of a nticoagulants [Z79.01] [address] [place] [address] Social History Tobacco Use [...] you attend taoist or Patient refused 2020 jew services? Do [...] INR 2.00 (H) 0.86 - 1.14 02/11/2018 [place] 4:32 PM CDT [facility] Comment: This test is intended for [...] City/State/ZIP Code Phon e Number [facility] [address] [place] [address] documented in this encounter Visit Diagnoses Diagnosis Personal history of DVT (deep vein throm bosis) Personal history of venous thrombosis an d embolism Long-term (current) use of anticoagulant s [Z79.01] Encounter for long-term (current) use of anticoagulants documented in this encounter Care Teams Merchandise Pickup/Receiving Associate Relationship Specialty Start Date End Date Froylan Louise MD PCP - General Family Practice 02/22/14 Froylan Louise MD PCP - Assigned PCP 03/13/14 08/25/18 Froylan Louise MD Assigned PCP 03/13/14 2 documented as of this encounter
--- OUTSIDE RECORDS SUMMARY | 2022-05-15 23:01 | XMS_ITS | Encounter Summary ---
:1955 Author Organization [place] Address [facility] [place] [address] Care Team Providers Name Role Phone Froylan Louise MD Primary Care Provider Unavailable Froylan Louise MD Unavailable Unavailable Froylan Louise MD Unavailable Unavailable Reason for Referral Consultation - Closed Specialty Diagnoses / Procedures Referred By Contact Refer red To Contact Diagnoses Postthrombotic syndrome Anticardiolipin antibody positive Chronic deep vein thrombosis (DVT) of lower extremity, unspecified laterality, unspecified vein (H) Froylan Louise MD [facility] [address] [address] [place] [address] [facility], [address] [place] [phone] Phone: Fax: Referral ID Status Reason Start Date Expiration Date Visits Requ ested Visits Authorized [id number] Closed 12/31/2017 12/31/2018 1 1 Reason for Visit Reason Onset Date Comments Results 12/26/2017 Encounter Details Date Type Department Care Team Description 12/26/2017 Telephone [facility] Froylan Louise Ra, MD Results [place] [address] [place] [address] Social History Tobacco Use [...] you attend uatsdin or Patient refused 2020 orthodoxy services? Do [...] (H) documented in this encounter Care Teams Outcomes Manager Relationship Specialty Start Date End Date Froylan Louise MD PCP - General [facility] Practice 02/22/14 Froylan Louise MD PCP - Assigned PCP 03/13/14 08/25/18 Froylan Louise MD Assigned PCP 03/13/14 2 documented as of this encounter
--- OUTSIDE RECORDS SUMMARY | 2022-05-15 23:01 | XMS_ITS | Encounter Summary ---
:1955 Author Organization [place] Address [address] [place] [address] Care Team Providers Name Role Phone Froylan Louise MD Primary Care Provider Unavailable Froylan Louise MD Unavailable Unavailable Froylan Louise MD Unavailable Unavailable Encounter Details Date Type Department Care Team Description 01/08/2018 Anticoagulation Therapy [facility] Audrey Louise Long-term (current) Visit Clinic Chhaya Dubose MD use of anticoagulants [address] [place] [address] Social History Tobacco Use [...] you attend holiness or Patient refused 2020 buddhism services? Do [...] INR 2.20 (H) 0.86 - 1.14 01/15/2018 [place] 4:18 PM CDT [facility] Comment: This test is [...] Phon e Number [facility] [phone] [place] [address] documented in this encounter Visit Diagnoses Diagnosis Long-term (current) use of anticoagulant s Encounter for long-term (current) use of anticoagulants documented in this encounter Care Teams Depot Manager Relationship Specialty Start Date End Date Froylan Louise MD PCP - General Family Practice 02/22/14 Froylan Louise MD PCP - Assigned PCP 03/13/14 08/25/18 Froylan Louise MD Assigned PCP 03/13/14 2 documented as of this encounter
--- OUTSIDE RECORDS SUMMARY | 2022-05-15 23:01 | XMS_ITS | Encounter Summary ---
:1955 Author Organization [place] Address [address] [place] [address] Care Team Providers Name Role Phone Froylan Louise MD Primary Care Provider Unavailable Froylan Louise MD Unavailable Unavailable Froylan Louise MD Unavailable Unavailable Encounter Details Date Type Department Care Team Description 01/08/2018 Orders Only [facility] Wily g-term (current) use of anticoagulants; [facility] DVT (deep venous thrombosis) (H) [address] [place] [address] Social History Tobacco Use [...] you attend yarsanism or Patient refused 2020 holiness services? Do [...] INR 1.50 (H) 0.86 - 1.14 01/08/2018 [place] 11:30 AM CDT [facility] Comment: This test is intended [...] Code Phon e Number [facility] [phone] [place] [address] documented in this encounter Visit Diagnoses Diagnosis Long-term (current) use of anticoagulant s Encounter for long-term (current) use of anticoagulants DVT (deep venous thrombosis) (H) Acute venous embolism and thrombosis of unspecified deep vessels of lower extremity documented in this encounter Care Teams Assistant Elementary Teacher Relationship Specialty Start Date End Date Froylan Louise MD PCP - General Family Practice 02/22/14 Froylan Louise MD PCP - Assigned PCP 03/13/14 08/25/18 Froylan Louise MD Assigned PCP 03/13/14 2 documented as of this encounter
--- OUTSIDE RECORDS SUMMARY | 2022-05-15 23:01 | XMS_ITS | Encounter Summary ---
:1955 Author Organization [place] Address [facility] [place] [address] Care Team Providers Name Role Phone Froylan Louise MD Primary Care Provider Unavailable Froylan Louise MD Unavailable Unavailable Froylan Louise MD Unavailable Unavailable Reason for Visit Reason Onset Date Comments Refill Request 08/19/2017 zolpidem (AMBIEN CR) 12.5 MG CR tablet Encounter Details Date Type Department Care Team Description 08/19/2017 Refill [facility] Froylan Louise Ra, Refill Request (zolpidem Chhaya VILLASEÑOR (AMBIEN CR) 12.5 MG CR [address] [facility] tablet) [place] [address] Social History Tobacco Use [...] you attend mu-ism or Patient refused 2020 advent services? Do [...] ready to be picked up. Carolin Dawson Bow Maker Custom HER OPERATOR Telephone Encounter - Froylan Louise MD - 08/20/2017 8:58 AM CST Ok to fill. HER OPERATOR Telephone Encounter - Hilda Santoyo, CINDY - 08/19/2017 4:46 PM CST PCP: Please see below. Pt requesting new script to be filled out of state. I called his local pharmacy [facility] in [place], last time they filled medication was 07/15/17. Please advise if you are ok sending in 1 time script to out of state pharmacy. We will need to call back [facility] in to notify them if we send in 1 month supply. Hilda Santoyo, CINDY -- [facility] HER OPERATOR Telephone Encounter - Shakir Hernandez - 08/19/2017 3:33 PM CST zolpidem (AMBIEN CR) 12.5 MG CR tablet Last Written Prescription Date: 06/13/17 Last Fill Quantity: 30, # refills: 2 Last office visit: 06/13/2017 with prescribing provider: 06/13/17 Future Office Visit: Patient is in [place] and to get this filled out there [facility] needs new Rx faxed to them. [id number] [place], [facility] [address] [facility] HER OPERATOR documented in this encounter Plan of Treatment Upcoming Encounters Date Type Specialty Care Team Description 05/20/2022 Lab Lab documented as of this encounter Visit Diagnoses Diagnosis Insomnia, unspecified type documented in this encounter Care Teams Rivet Tapping Machine Operator Relationship Specialty Start Date End Date Froylan Louise MD PCP - General Family Practice 02/22/14 Froylan Louise MD PCP - Assigned PCP 03/13/14 08/25/18 Froylan Louise MD Assigned PCP 03/13/14 2 documented as of this encounter
--- OUTSIDE RECORDS SUMMARY | 2022-05-15 23:01 | XMS_ITS | Encounter Summary ---
:1955 Author Organization [place] Address [address] [place] [address] Care Team Providers Name Role Phone Froylan Louise MD Primary Care Provider Unavailable Froylan Louise MD Unavailable Unavailable Froylan Louise MD Unavailable Unavailable Reason for Visit Reason Onset Date Comments Orders 12/26/2017 compression socks Encounter Details Date Type Department Care Team Description 12/26/2017 Telephone [facility] Froylan Louise Orde rs (compression Clinic [facility] socks ) [address] [place] [address] Social History Tobacco Use Types [...] you attend worship or Patient refused 2020 sabianist services? Do [...] them all day atwork He is at [employer] [facility] and they have something called a sport [...] ions documented in this encounter Care Teams Tissue Rewinder Relationship Specialty Start Date End Date Froylan Louise MD PCP - General Family Practice 02/22/14 Froylan Louise MD PCP - Assigned PCP 03/13/14 08/25/18 Froylan Louise MD Assigned PCP 03/13/14 2 documented as of this encounter
--- OUTSIDE RECORDS SUMMARY | 2022-05-15 23:01 | XMS_ITS | Encounter Summary ---
:1955 Author Organization [place] Address [address] [place] [address] Care Team Providers Name Role Phone Froylan Louise MD Primary Care Provider Unavailable Froylan Louise MD Unavailable Unavailable Froylan Louise MD Unavailable Unavailable Encounter Details Date Type Department Care Team Description 12/22/[address] [facility] Long-term (current) use of anticoagulants; Visit Clinic [place] Acute deep vein thrombosis ( DVT) of proximal vein of both lower extremities (H) [address] [place] [address] Social History Tobacco Use Types [...] you attend sabianist or Patient refused 2020 zoroastrian services? Do [...] INR Point of 3.1 (A) 0.86 - [facility] 1.14 [facility] Specimen (Source) Anatomical Location Collection Method / Collectio n Time Received Time / Laterality Volume 12/22/2017 Froylan Louise MD LAB - BLOOD ORDERABLES Performing Organization Address City/State/ZIP Code Phon e Number [facility] [id number] [place] [address] documented in this encounter Visit Diagnoses Diagnosis Long-term (current) use of anticoagulant s Encounter for long-term (current) use of anticoagulants Acute deep vein thrombosis (DVT) of prox imal vein of both lower extremities (H) documented in this encounter Care Teams Braiding Operator Relationship Specialty Start Date End Date Froylan Louise MD PCP - General Family Practice 02/22/14 Froylan Louise MD PCP - Assigned PCP 03/13/14 08/25/18 Froylan Louise MD Assigned PCP 03/13/14 2 documented as of this encounter
--- OUTSIDE RECORDS SUMMARY | 2022-05-15 23:01 | XMS_ITS | Encounter Summary ---
:1955 Author Organization [place] Address [address] [place] [address] Care Team Providers Name Role Phone Froylan Louise MD Primary Care Provider Unavailable Froylan Louise MD Unavailable Unavailable Froylan Louise MD Unavailable Unavailable Reason for Visit Reason Onset Date Comments Referral 12/31/2017 Encounter Details Date Type Department Care Team Description 12/31/2017 Telephone [facility] Vascular Kelsi Pham community coordinator for high school Clinic [address] [address] Social History Tobacco Use Types [...] you attend restorationist or Patient refused 2020 mormon services? Do [...] 12/31/2017 2:30 PM CDT Pt referred to [facility] by Froylan Louise MD for Postthrombotic syndrome,Anticardiolipin [...] on filedocumented in this encounter Care Teams National Expansion Recruiter Relationship Specialty Start Date End Date Froylan Louise MD PCP - General Family Practice 02/22/14 Froylan Louise MD PCP - Assigned PCP 03/13/14 08/25/18 Froylan Louise MD Assigned PCP 03/13/14 2 documented as of this encounter
--- OUTSIDE RECORDS SUMMARY | 2022-05-15 23:01 | XMS_ITS | Encounter Summary ---
:1955 Author Organization [place] Address [facility] [place] [address] Care Team Providers Name Role Phone Froylan [...] [facility] [address] [place] [phone] [address] [place] [address] Referral ID Status Reason Start Date Expiration Date Visits Requ ested Visits Authorized [id number] Closed 07/08/2017 07/08/2018 1 1 MATING MANAGER Reason for Visit Diagnostic Imaging XR - Closed Specialty Diagnoses / Procedures Referred By Contact Refer red To Contact Radiology. Diagnoses Ulcerative colitis with complication, unspecified location (H) Chase Suazo MD Sh Xray Procedures XR Colon Water Soluble COLON [facility] [address] [place] [phone] [address] [place] [address] Referral ID Status Reason Start Date Expiration Date Visits Requ ested Visits Authorized [id number] Closed 07/08/2017 07/08/2018 1 1 Encounter Details Date Type Department Care Team Description 07/08/2017 Hospital Encounter [facility] Chase Suazo erative colitis Southdakm Haywood MD with complication, [address] Jennifer COLON RECTAL unspecified location [place] [address] [facility] (H) [phone] [address] F[address]TIM[address] [place] [address] Social History Tobacco Use Types Packs/Day Years [...] you attend zoroastrian or Patient refused 2020 adventism services? Do [...] colitis R esults for this SOLUBLE THERAPEUTIC ESTIMATING MANAGER with complication, pr ocedure are in unspecified location the res ults (H) section. documented in this encounter Results XR Colon Water Soluble (07/08/2017 3:15 PM ESTIMATING MANAGER) Anatomical Region Laterality Modality Colon Radio Fluoroscopy Specimen (Source) Anatomical Location Collection Method / Collectio n Time Received Time / Laterality Volume Impressions 07/08/2017 4:51 PM ESTIMATING MANAGER IMPRESSION: No leakage of contrast identified. BRANDON CHRIS MD Narrative 07/08/2017 4:51 PM ESTIMATING MANAGER COLON WATER SOLUBLE ??07/08/2017 3:15 PM HISTORY: [...] Site diatrizoate meglumine-sodium Given 07/08/2017 3:35 PM ESTIMATING MANAGER 240 mL s (GASTROGRAFIN; GASTROVIEW) 66-10 % solution 240 mL 240 mL, Rectal, ONCE, On Fri07/08/17 at 1545, For 1 dose documented in this encounter Care Teams Home Insurance Agent Relationship Specialty Start Date End Date Froylan Louise MD PCP - General Family Practice 02/22/14 Froylan Louise MD PCP - Assigned PCP 03/13/14 08/25/18 Froylan Louise MD Assigned PCP 03/13/14 2 documented as of this encounter
--- OUTSIDE RECORDS SUMMARY | 2022-05-15 23:01 | XMS_ITS | Encounter Summary ---
:1955 Author Organization [place] Address [address] [place] [address] Care Team Providers Name Role Phone Froylan Louise MD Primary Care Provider Unavailable Froylan Louise MD Unavailable Unavailable Froylan Louise MD Unavailable Unavailable Reason for Visit Reason Onset Date Comments Refill Request 07/13/2017 REBECCA HFA 17 MCG/ ACT Inhaler Encounter Details Date Type Department Care Team Description 07/13/2017 Refill [facility] Froylan Louise Ra, Refill Request (REBECCA Shaver MD HFA 17 MCG/ACT Inhaler) [address] [place] [address] Social History Tobacco [...] you attend pentecostal or Patient refused 2020 judaism services? Do [...] asthma? 0 0 0 Prescription approved per [facility] Refill Protocol. Wendi Lindsay RN, BSN NESS LIAISON MANAGER Telephone Encounter - Thais Ayala - 07/13/2017 8:20 AM CST Requested Prescriptions Pending Prescriptions Disp Refills ??? ATROVENT HFA 17 MCG/ACT Inhaler [Pharmacy Med Name: ATROVENT HFA INHALER] Last Written Prescription Date: 04/02/2017 Last Fill Quantity: 12.9 Inhaler, # refills: 2 Last Office Visit with [facility], [facility] or [facility] prescribing provider: 06/13/2017 12.9 Inhaler 2 Sig: [...] & Orders section of the refill encounter. NESS LIAISON MANAGER documented in this encounter Plan of Treatment Upcoming Encounters Date Type Specialty Care Team Description 05/20/2022 Lab Lab documented as of this encounter Visit Diagnoses Diagnosis Mild persistent asthma without complicat ion Unspecified asthma documented in this encounter Care Teams Paper Baling Machine Operator Relationship Specialty Start Date End Date Froylan Louise MD PCP - General Family Practice 02/22/14 Froylan Louise MD PCP - Assigned PCP 03/13/14 08/25/18 Froylan Louise MD Assigned PCP 03/13/14 2 documented as of this encounter
--- OUTSIDE RECORDS SUMMARY | 2022-05-15 23:01 | XMS_ITS | Encounter Summary ---
:1955 Author Organization [place] Address [address] [place] [address] Care Team Providers Name Role Phone Froylan Louise MD Primary Care Provider Unavailable Froylan Louise MD Unavailable Unavailable Froylan Louise MD Unavailable Unavailable Encounter Details Date Type Department Care Team Description 12/31/2017 Anticoagulation Therapy [facility] Long-term (current) Visit [facility] use of anticoagulants [address] [place] [address] Social History Tobacco Use Types [...] you attend rastafarian or Patient refused 2020 jewish services? Do [...] from the vascular surgeon he saw in [place]. [place]LIN was faxed and copy to abstraction. [...] INR Point of 4.0 (A) 0.86 - [facility] 1.14 [facility] Specimen (Source) Anatomical Location Collection Method / Collectio n Time Received Time / Laterality Volume 12/31/2017 Froylan Louise MD LAB - BLOOD ORDERABLES Performing Organization Address City/State/ZIP Code Phon e Number [facility] [address] [place] [address] documented in this encounter Visit Diagnoses Diagnosis Long-term (current) use of anticoagulant s Encounter for long-term (current) use of anticoagulants documented in this encounter Care Teams Hand Clerical Verifier Relationship Specialty Start Date End Date Froylan Louise MD PCP - General Family Practice 02/22/14 Froylan Louise MD PCP - Assigned PCP 03/13/14 08/25/18 Froylan Louise MD Assigned PCP 03/13/14 2 documented as of this encounter
--- OUTSIDE RECORDS SUMMARY | 2022-05-15 23:01 | XMS_ITS | Encounter Summary ---
:1955 Author Organization [place] Address [address] [place] [address] Care Team Providers Name Role Phone Froylan Louise MD Primary Care Provider Unavailable Froylan Louise MD Unavailable Unavailable Froylan Louise MD Unavailable Unavailable Reason for Visit Reason Onset Date Comments Refill Request 09/22/2017 loperamide (IMODIUM) 2 MG capsule Encounter Details Date Type Department Care Team Description 09/22/2017 [facility] Froylan Louise Ra, Refill Request Chhaya VILLASEÑOR (loperamide (IMODIUM) [address] MG capsule) [place] [address] Social History Tobacco Use [...] you attend lutheran or Patient refused 2020 caodaism services? Do [...] 09/22/2017 10:05 AM CDT Prescription approved per [facility] Refill Protocol. Wendi Lindsay RN, BSN Telephone Encounter - Carlos Alberto Black - 09/22/2017 7:37 AM CDT loperamide (IMODIUM) 2 MG capsule Last Written Prescription Date: 06/10/2017 Last Fill Quantity: 480 capsule, # refills: 0 Last Office Visit: 06/13/2017 Future Office visit: Routing refill request to provider for review/approval because: Drug not on the [facility], P or [facility] refill protocol or controlled substance Carlos Alberto Black XRT documented in this encounter Plan of Treatment Upcoming Encounters Date Type Specialty Care Team Description 05/20/2022 Lab Lab documented as of this encounter Visit Diagnoses Diagnosis H/O ulcerative colitis Personal history of other diseases of di gestive system documented in this encounter Care Teams Airport Skilled Maintenance Supervisor Relationship Specialty Start Date End Date Froylan Louise MD PCP - General Family Practice 02/22/14 Froylan Louise MD PCP - Assigned PCP 03/13/14 08/25/18 Froylan Louise MD Assigned PCP 03/13/14 2 documented as of this encounter
--- OUTSIDE RECORDS SUMMARY | 2022-05-15 23:01 | XMS_ITS | Encounter Summary ---
:1955 Author Organization [place] Address [address] [place] [address] Care Team Providers Name Role Phone Froylan Louise MD Primary Care Provider Unavailable Froylan Louise MD Unavailable Unavailable Froylan Louise MD Unavailable Unavailable Reason for Visit Reason Onset Date Comments Orders 12/17/2017 Imaging Encounter Details Date Type Department Care Team Description 12/17/2017 Telephone [facility] Froylan Louise Ra, MD Orders (Imaging) [address] [address] Social History Tobacco [...] you attend gnosticist or Patient refused 2020 rastafari services? Do [...] for bilateral lower extremity ultrasound faxed to [facility] in [place] as he is going there now. Order faxed to [phone] per patient request. Yeimi Daniel RN documented in this encounter Plan of Treatment Upcoming Encounters Date Type Specialty Care Team Description 05/20/2022 Lab Lab documented as of this encounter Visit Diagnoses Not on filedocumented in this encounter Care Teams Ocular Care Aide Relationship Specialty Start Date End Date Froylan Louise MD PCP - General Family Practice 02/22/14 Froylan Louise MD PCP - Assigned PCP 03/13/14 08/25/18 Froylan Louise MD Assigned PCP 03/13/14 2 documented as of this encounter
--- OUTSIDE RECORDS SUMMARY | 2022-05-15 23:01 | XMS_ITS | Encounter Summary ---
:1955 Author Organization [place] Address [address] [place] [address] Care Team Providers Name Role Phone Froylan Louise MD Primary Care Provider Unavailable Froylan Louise MD Unavailable Unavailable Froylan Louise MD Unavailable Unavailable Reason for Visit Reason Onset Date Comments Refill Request 07/30/2017 furosemide (LASIX) 2 0 MG tablet Encounter Details Date Type Department Care Team [facility], Refill Request Chhaya VILLASEÑOR (furosemide (LASIX) [address] MG tablet) [place] [address] Social History Tobacco Use [...] 07/30/2017 7:46 AM CST No refill needed Esthela Corea RN SAMPLE MATCHER Telephone Encounter - Carlos Alberto Black - 07/30/2017 7:06 AM CST MEDICATION FILLED ON 06/13/2017 FOR A 1 YEAR SUPPLY Carlos Alberto Black XRT SAMPLE MATCHER documented in this encounter Plan of Treatment Upcoming Encounters Date Type Specialty Care Team Description 05/20/2022 Lab Lab documented as of this encounter Visit Diagnoses Diagnosis 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
--- OUTSIDE RECORDS SUMMARY | 2022-05-15 23:01 | XMS_ITS | Encounter Summary ---
:1955 Author Organization [place] Address [address] [place] [address] Care Team Providers Name Role Phone Froylan Louise MD Primary Care Provider Unavailable Froylan Louise MD Unavailable Unavailable Froylan Louise MD Unavailable Unavailable Encounter Details Date Type Department Care Team Description 01/05/2018 Anticoagulation Therapy [facility] DVT (deep venous thrombosis) (H) (Primary Dx); Visit [facility] Long-term (current) use of a nticoagulants [address] [place] [address] Social History Tobacco Use Types [...] you attend nondenominational or Patient refused 2020 faith services? Do [...] 4.0 (A) 0.86 - [facility] 1.14 [facility] Specimen (Source) Anatomical Location Collection Method / Collectio n Time Received Time / Laterality Volume 01/05/2018 Froylan Ray Dani MD LAB - BLOOD ORDERABLES Performing Organization Address City/State/ZIP Code Phon e Number [facility] [address] [place] [address] documented in this encounter Visit Diagnoses Diagnosis DVT (deep venous thrombosis) (H) - Prima ry Acute venous embolism and thrombosis of unspecified deep vessels of lower extremity Long-term (current) use of anticoagulant s Encounter for long-term (current) use of anticoagulants documented in this encounter Care Teams Utility Operator Relationship Specialty Start Date End Date Froylan Louise MD PCP - General Family Practice 02/22/14 Froylan Louise MD PCP - Assigned PCP 03/13/14 08/25/18 Froylan Louise MD Assigned PCP 03/13/14 2 documented as of this encounter
--- OUTSIDE RECORDS SUMMARY | 2022-05-15 23:01 | XMS_ITS | Encounter Summary ---
:1955 Author Organization [place] Address [facility] [place] [address] Care Team Providers Name Role Phone Froylan Louise MD Primary Care Provider Unavailable Froylan Louise MD Unavailable Unavailable Froylan Louise MD Unavailable Unavailable Reason for Visit Reason Onset Date Comments Erroneous encounter-disregard 09/22/2017 Encounter Details Date Type Department Care Team Description 07/04/2017 Office Visit [facility] Vein David Love [facility] Latesha Thomson MD ENCOUNTER--DISREGARD [address] ([address]) [address] [place] [address] [place] 192965 Social History Tobacco Use Types Packs/Day Years [...] you attend congregational or Patient refused 2020 zoroastrian services? Do [...] not related. He is relocating permanently to [place]. documented in this encounter Plan of Treatment Upcoming Encounters Date Type Specialty Care Team Description 05/20/2022 Lab Lab documented as of this encounter Visit Diagnoses Diagnosis ERRONEOUS ENCOUNTER--DISREGARD - Primary documented in this encounter Care Teams Procurement Buyer Relationship Specialty Start Date End Date Froylan Louise MD PCP - General Family Practice 02/22/14 Froylan Louise MD PCP - Assigned PCP 03/13/14 08/25/18 Froylan Louise MD Assigned PCP 03/13/14 2 documented as of this encounter
--- OUTSIDE RECORDS SUMMARY | 2022-05-15 23:01 | XMS_ITS | Encounter Summary ---
:1955 Author Organization [place] Address [address] [place] [address] Care Team Providers Name Role Phone Froylan Louise MD Primary Care Provider Unavailable Froylan Louise MD Unavailable Unavailable Froylan Louise MD Unavailable Unavailable Encounter Details Date Type Department Care Team Description 01/06/2018 Orders Only [facility] Pos tthrombotic syndrome; [facility] Anticardiolipin antibody pos itive; [address] [facility] Chronic deep vein thrombosis (DVT) of lower extremity, unspecified laterality, unspecified vein (H) [place] [address] Social History Tobacco Use Types Packs/Day [...] you attend episcopalian or Patient refused 2020 episcopalian services? Do [...] [facility] umol/L umol/L 10:16 AM CDT [facility] Comment: A normal plasma homocysteine level likel y rules out genetic defects in homocysteine metabolism. 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
--- OUTSIDE RECORDS SUMMARY | 2022-05-15 23:01 | XMS_ITS | Encounter Summary ---
:1955 Author Organization [place] Address [address] [place] [address] Care Team Providers Name Role Phone Froylan Louise MD Primary Care Provider Unavailable Froylan Louise MD Unavailable Unavailable Froylan Louise MD Unavailable Unavailable Reason for Visit Reason Onset Date Comments Panel Management 07/15/2017 Encounter Details Date Type Department Care Team Description 07/15/2017 Telephone [facility] Froylan Louise Ra, MD Panel Management [address] [address] Social History Tobacco [...] containing 4 or more times a w [place] 05/25/2021 alcohol? How many drinks containing alcohol [...] you attend buddhism or Patient refused 2020 pentecostal services? Do [...] Lakeisha and just get wound fully explored. AL SERVICE DIRECTOR Telephone Encounter - Hilda Gibson CMA - [...] Gibson CMA Chart routed to none . AL SERVICE DIRECTOR documented in this encounter Plan of Treatment Upcoming Encounters Date Type Specialty Care Team Description 05/20/2022 Lab Lab documented as of this encounter Visit Diagnoses Not on filedocumented in this encounter Care Teams Print Production Associate Relationship Specialty Start Date End Date Froylan Louise MD PCP - General Family Practice 02/22/14 Froylan Louise MD PCP - Assigned PCP 03/13/14 08/25/18 Froylan Louise MD Assigned PCP 03/13/14 2 documented as of this encounter
--- OUTSIDE RECORDS SUMMARY | 2022-05-15 23:01 | XMS_ITS | Encounter Summary ---
:1955 Author Organization [place] Address [address] [place] [address] Care Team Providers Name Role Phone Froylan Louise MD Primary Care Provider Unavailable Froylan Louise MD Unavailable Unavailable Froylan Louise MD Unavailable Unavailable Encounter Details Date Type Department Care Team Description 01/05/2018 Orders Only [facility] Pos tthrombotic syndrome; [facility] Anticardiolipin antibody pos itive; [address] [facility] Chronic deep vein thrombosis (DVT) of lower extremity, unspecified laterality, unspecified vein (H) [place] [address] Social History Tobacco Use Types Packs/Day [...] you attend hoahaoism or Patient refused 2020 hinduism services? Do [...] Priority Associated Diagnoses Date/Ti me F2 prothrombin 53928Z Lab Routine Postthromb otic syndrome 01/05/2018 4:15 [...] FACTOR 2 PROTHROMBIN Routine 01/05/2018 4:15 Postthrombotic 35177R MUT ANAL PM CDT syndrome Anticardiolipin antibody [...] [facility] umol/L umol/L 10:16 AM CDT [facility] Comment: A normal plasma homocysteine level likel y rules out genetic defects in homocysteine metabolism. Specimen Anatomical Collection Method Collection Time Receive d Time (Source) Location / / Volume Laterality Blood specimen 01/06/2018 3:54 PM 018 3:55 (specimen) CDT PM CDT Felipe Charles MD LAB - BLOOD ORDERABLES Performing Organization Address City/State/ZIP Code Phon e Number [facility] [address] [place] [address] [place] Factor 2 and 5 mutation analysis (01/05/2018 4:15 PM CDT) Component Value Ref Test Analysis Performed At [facility] Range Method Time Signature Copath Report Patient Name: ANITA CHRISTINE MR#: [id number] Specimen #: [id number] Collected: 01/05/2018 16:15 Received: 01/07/2018 10:08 Reported: 01/08/2018 16:41 Ordering Phy(s): FELIPE CHARLES For improved result formatting, select 'View Enhanced Report Format' under Linked Documents section. TEST(S) REQUESTED: Factor 5 Leiden and Factor 2 by PCR SPECIMEN DESCRIPTION: Blood METHODOLOGY: ?? The regions of genomic DNA containing the G1 691A Factor V Leiden gene mutation (Factor V Leiden) and the Factor 2(Prothrombin R96803A) gene mutation were simultaneously amplified using the polymerase chain reaction. ??The amplified products were digested with restriction endonuclease TaqI and products were analyzed by gel electrophoresis. RESULTS: Factor V 1691G>A (Leiden) ??RESULTS: Mutation analyzed: ? 1691G>A Factor V 1691G>A (Leiden) ??Interpretation: ?ABSENT Factor V 1691G>A (Leiden) mutation ??genotype: ?G/G FACTOR 2/PROTHROMBIN RESULTS: Mutation analyzed: ? 25061H>A Factor 2 Mutation Interpretation: ?ABSENT Factor 2 [...] will interfere with test results. ??Call the [facility]([phone]) for instructions on sample collection for these patients. This test was developed and its performance characteristics determined by the [facility], ??[facility]. It has not been cleared or [...] By: Mauricio Chavez MD CPT Codes: A: 84441-W1BELQ, 76688-I5FHMA, J5362-SHYWUQ(2) TESTING LAB LOCATION: [address] [address] COLLECTION SITE: Client: ??[facility] Location: ??[facility] (R) Specimen Anatomical Collection Method Collection Time Receive d Time (Source) Location / / Volume Laterality 01/05/2018 4:15 PM 8 CDT 10:08 AM CDT Felipe Charles MD LAB - GENOMICS Performing Organization Address City/State/ZIP Code Phon e Number [place] (ABNORMAL) Lupus Anticoagulant Panel (01/05/2018 4:15 PM CDT) [facility] Method Time Signature Lupus Result Positive (A) NEG^Negat 01/08/2018 [facility] 1:05 PM CDT [facility] Comment: (Note) COMMENTS: INR is elevated. APTT [...] and edited/confirmed by me. Rose Dorsey M.D. ??[phone] 01/08/2018 ? INR = ?2.87 ?Reference range: [...] Number [facility] [address] [place] [address] [facility] Erythrocyte sedimentation rate auto (01/05/2018 4:15 PM CDT) athologist Signature Sed Rate 16 0 - 20 mm/h 01/05/2018 [place] 5:22 PM CDT [facility] Specimen Anatomical Collection Method Collection Time Receive d Time (Source) Location / / Volume Laterality Blood specimen 01/05/2018 4:15 PM 018 4:16 (specimen) CDT PM CDT Felipe Charles MD LAB - BLOOD ORDERABLES Performing Organization Address [facility]/ZIP Code Phon e Number [facility] [address] [place] [address] D dimer quantitative (01/05/2018 4:15 PM CDT) athologist Signature D Dimer 0.5 0.0 - 0.50 01/06/2018 [facility] ug/ml FEU 2:14 PM CDT [facility] Comment: This D-dimer assay is intended [...] LAB - BLOOD ORDERABLES Performing Organization Address City/[facility]/ZIP Code Phon e Number [facility] [address] [place] [address] (ABNORMAL) CRP inflammation (01/05/2018 4:15 PM CDT) Patholo gist Method Time Signature CRP Inflammation 19.0 (H) 0.0 - 8.0 01/06/2018 [facility] F mg/L 4:48 PM CDT [facility] Specimen Anatomical Collection Method Collection Time Receive d Time (Source) Location / / Volume Laterality Blood specimen 01/05/2018 4:15 PM 018 4:16 (specimen) CDT PM CDT Felipe Charles MD LAB - BLOOD ORDERABLES Performing Organization Address City/State/ZIP Code Phon e Number [facility] [address] [place], [place] [phone] [place] [address] Comprehensive metabolic panel (01/05/2018 4:15 PM CDT) P athologist Signature Sodium 142 133 - 144 01/06/2018 [facility] mmol/L 4:08 PM CDT [facility] Potassium 4.3 3.4 - 5.3 01/06/2018 [facility] mmol/L 4:08 PM CDT [facility] Chloride 107 94 - 109 01/06/2018 [facility] mmol/L 4:08 PM CDT [facility] Carbon Dioxide 25 20 - 32 01/06/2018 [facility] mmol/L 4:08 PM CDT [facility] Anion Gap 10 3 - 14 01/06/2018 [facility] mmol/L 4:08 PM CDT [facility] Glucose 96 70 - 99 01/06/2018 [facility] mg/dL 4:08 PM CDT [facility] Urea Nitrogen 16 7 - 30 01/06/2018 [facility] mg/dL 4:08 PM CDT [facility] Creatinine 0.88 0.66 - 01/06/2018 [facility] 1.25 mg/dL 4:08 PM CDT [facility] GFR Estimate 89 >60 01/06/2018 [place] mL/min/1.7 4:08 PM CDT CLINICS m2 [facility] Comment: Non GFR Calc GFR Estimate If >90 >60 mL/min/1.7m2 01/06/2018 4:08 P M [facility] Black T [facility] Comment: GFR Calc Calcium 9.3 8.5 - 10.1 01/06/2018 4:08 PM [facility] mg/dL T [facility] Bilirubin Total 0.6 0.2 - 1.3 mg/dL 01/06/2018 4:08 PM [facility]T [facility] Albumin 3.8 3.4 - 5.0 g/dL 01/06/2018 4:08 PM [facility] Protein Total 8.0 6.8 - 8.8 g/dL 01/06/2018 4:08 PM [facility] Alkaline Phosphatase 86 40 - 150 U/L 01/06/2018 4:[address] [facility] ALT 23 0 - 70 U/L 01/06/2018 4:08 PM [facility] AST 10 0 - 45 U/L 01/06/2018 4:08 PM [facility] Specimen Anatomical Collection Method Collection Time Receive d Time (Source) Location / / Volume Laterality Blood specimen 01/05/2018 4:15 PM 018 4:16 (specimen) CDT PM CDT Felipe Charles MD LAB - BLOOD ORDERABLES Performing Organization Address City/State/ZIP Code Phon e Number [facility] [address] [place] [address] CBC with platelets differential (01/05/2018 4:15 PM CDT) [facility] gist Method Time Signature WBC 8.8 4.0 - 01/05/2018 [place] 11.0 5:11 PM CDT [facility] 10e9/L [place] RBC Count 4.98 4.4 - 5.9 01/05/2018 [place] 10e12/L 5:11 PM CDT [facility] Hemoglobin 14.8 13.3 - 01/05/2018 [place] 17.7 g/dL 5:11 PM CDT [facility] Hematocrit 45.2 40.0 - 01/05/2018 [place] 53.0 % 5:11 PM CDT [facility] MCV 91 78 - 100 01/05/2018 [place] fl 5:11 PM CDT [facility] MCH 29.7 26.5 - 01/05/2018 [place] 33.0 pg 5:11 PM CDT [facility] [place] MCHC 32.7 31.5 - 01/05/2018 [place] 36.5 g/dL 5:11 PM CDT [facility] [place] RDW 13.3 10.0 - 01/05/2018 [place] 15.0 % 5:11 PM CDT [facility] Platelet Count 242 150 - 450 01/05/2018 [place] 10e9/L 5:11 PM CDT [facility] Diff Method Automated 01/05/2018 [place] Method 5:11 PM CDT [facility] [place] % Neutrophils 78.1 % 01/05/2018 [facility] 5:11 PM CDT [facility] [place] % Lymphocytes 14.2 % 01/05/2018 [place] 5:11 PM CDT [facility] [place] % Monocytes 7.0 % 01/05/2018 [place] 5:11 PM CDT [facility] [place] % Eosinophils 0.5 % 01/05/2018 [place] 5:11 PM CDT [facility] [place] % Basophils 0.2 % 01/05/2018 [place] 5:11 PM CDT [facility] [place] Absolute 6.9 1.6 - 8.3 01/05/2018 [place] Neutrophil 10e9/L 5:11 PM CDT [facility] [place] Absolute 1.2 0.8 - 5.3 01/05/2018 [place] Lymphocytes 10e9/L 5:11 PM CDT [facility] [place] Absolute 0.6 0.0 - 1.3 01/05/2018 [place] Monocytes 10e9/L 5:11 PM CDT [facility] Absolute 0.0 0.0 - 0.7 01/05/2018 [place] Eosinophils 10e9/L 5:11 PM CDT [facility] [place] Absolute 0.0 0.0 - 0.2 01/05/2018 [place] Basophils 10e9/L 5:11 PM CDT [facility] [place] Specimen Anatomical Collection Method Collection Time Receive d Time (Source) Location / / Volume Laterality Blood specimen 01/05/2018 4:15 PM 018 4:16 (specimen) CDT PM CDT Felipe Charles MD LAB - BLOOD ORDERABLES Performing Organization Address City/State/ZIP Code Phon e Number [facility] [address] [place] [address] Cardiolipin Terra IgG and IgM (01/05/2018 4:15 PM CDT) P athologist Signature Cardiolipin <1.6 0.0 - 19.9 01/07/2018 [facility] Antibody IgG GPL-U/mL 9:22 AM CDT [facility] Comment: Negative Cardiolipin Antibody 2.9 0.0 - 19.9 01/07/2018 9:22 AM [facility] IgM MPL-U/mL T [facility] Comment: Negative Specimen Anatomical Collection Method Collection Time Receive d Time (Source) Location / / Volume Laterality Blood specimen 01/05/2018 4:15 PM 018 4:16 (specimen) CDT PM CDT Felipe Charles MD LAB - BLOOD ORDERABLES Performing Organization Address [facility] Phon e Number [address] Beta 2 Glycoprotein Antibodies IGG IGM (01/05/2018 4:15 PM CDT) Analysis Performed At Patho logist Time Signature Beta 2 <0.6 <7 U/mL 01/07/2018 [facility] Glycoprotein 1 1:34 PM CDT [facility] IgG [facility] Comment: Negative Beta 2 Glycoprotein 1 1.6 <7 U/mL 01/07/2018 1:31 PM CDT [facility] Antibody IgM [facility] Comment: Negative Specimen Anatomical Collection Method Collection Time Receive d Time (Source) Location / / Volume Laterality Blood specimen 01/05/2018 4:15 PM 018 4:16 (specimen) CDT PM CDT Felipe Charles MD LAB - BLOOD ORDERABLES Performing Organization Address City/[facility] Phon e Number [address] Antithrombin III (01/05/2018 4:15 PM CDT) Analysis Performed At Patho logist Time Signature Antithrombin III 107 85 - 135 % 01/08/2018 [facility] Chromogenic 7:13 AM CDT [facility] Specimen Anatomical Collection Method Collection Time Receive d Time (Source) Location / / Volume Laterality Blood specimen 01/05/2018 4:15 PM 07/16/2 018 4:16 (specimen) CDT PM CDT Felipe Charles MD LAB - BLOOD ORDERABLES Performing Organization Address City/State/ZIP Code Phon e Number [facility] [address] [place], [place] [phone] [place] [address] documented in this encounter Visit Diagnoses Diagnosis 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
--- OUTSIDE RECORDS SUMMARY | 2022-05-15 23:01 | XMS_ITS | Encounter Summary ---
:1955 Author Organization [place] Address [address] [place] [address] Care Team Providers Name Role Phone Froylan Louise MD Primary Care Provider Unavailable Froylan Louise MD Unavailable Unavailable Froylan Louise MD Unavailable Unavailable Reason for Visit Reason Comments RECHECK Encounter Details Date Type Department Care Team Description 12/10/2017 Office Visit [facility] Froylan Louise gino p vein thrombosis (DVT) of proximal vein of both lower extremities (H) (Primary Dx); Clinic Chhaya Dubose MD Benign prostatic hyperplasia with weak urinary stream; [address] [facility] Anticardiolipin antibody pos itive; [place], [place] Insomnia, unsp ecified type [phone] Social [...] you attend islam or Patient refused 2020 rastafari services? Do [...] positive ??? Mild persistent asthma ??? Health Correction ? ? Hyperlipidemia LDL goal <160 ??? [...] was created on his behalf by Sofia lAtman, a trained medical care evaluation specialist. The creation of this document is based on the provider's statements to the medical care evaluation specialist. Sofia Altman 2:45 PM December 10, 2017 [...] this document, created by the medical care evaluation specialist for me, accurately reflects the services I personally performed and the decisions made by me. I have reviewed and approved this document for accuracy prior to leaving the patient care area. December 10, 2017 3:07 PM Froylan Louise MD [facility] documented in this encounter Plan of [...] type documented in this encounter Care Teams Seat Maker Relationship Specialty Start Date End Date Froylan Louise MD PCP - General Family Practice 02/22/14 Froylan Louise MD PCP - Assigned PCP 03/13/14 08/25/18 Froylan Louise MD Assigned PCP 03/13/14 2 documented as of this encounter
--- OUTSIDE RECORDS SUMMARY | 2022-05-15 23:01 | XMS_ITS | Encounter Summary ---
:1955 Author Organization [place] Address [address] [place] [address] Care Team Providers Name Role Phone Froylan Louise MD Primary Care Provider Unavailable Froylan Louise MD Unavailable Unavailable Froylan Louise MD Unavailable Unavailable Reason for Visit Reason Onset Date Comments CT Results 06/26/2017 Encounter Details Date Type Department Care Team Description 06/26/2017 Telephone [facility] Froylan Louise Ra, MD CT Results [address] [phone] Social History Tobacco [...] you attend moravian or Patient refused 2020 anabaptism services? Do [...] - 06/26/2017 9:16 AM CST Per PCP specification writer called to Dr. Suazo at [facility]. They will contact pt to schedule appt. CT results have been faxed. Esthela Corea RN GRATED SPECIALIST documented in this encounter Plan of Treatment Upcoming Encounters Date Type Specialty Care Team Description 05/20/2022 Lab Lab documented as of this encounter Visit Diagnoses Not on filedocumented in this encounter Care Teams Power System Operator Relationship Specialty Start Date End Date Froylan Louise MD PCP - General Family Practice 02/22/14 Froylan Louise MD PCP - Assigned PCP 03/13/14 08/25/18 Froylan Louise MD Assigned PCP 03/13/14 2 documented as of this encounter
--- OUTSIDE RECORDS SUMMARY | 2022-05-15 23:01 | XMS_ITS | Encounter Summary ---
:1955 Author Organization [place] Address [address] [place] [address] Care Team Providers Name Role Phone Froylan Louise MD Primary Care Provider Unavailable Froylan Louise MD Unavailable Unavailable Froylan Louise MD Unavailable Unavailable Reason for Referral Specialty Diagnoses / Procedures Referred By Contact Refer red To Contact Froylan [place] [address] [place] [address] Referral ID Status Reason Start Date Expiration Date Visits Requ ested Visits Authorized Scheduling Instructions ANTICOAGULATION CLINIC [facility]LLAB[facility]ATIVE [place] ACTICE AGREEMENT The following represents a collaborative practice agreement among the physicians of the Clinic and staff of the Anticoagulat ion Clinic Service ([facility]) Physicians shall: 1. Refer patients requiring anticoagulat ion to a specialty service staffed by personnel of Pharmacy Services and super vised by Clinic physicians. 2. Respond to questions and referrals fr pharmacy staff regarding delinquent or difficult patients. 3. Inform the [facility] staff when a new patie nt is [...] Department Care Team Description 12/10/2017 Anticoagulation Therapy [facility] Audrey Louise Long-term (current) use of anticoagulants; Visit Clinic Chhaya Dubose MD Acute deep vein thrombosis ( DVT) of proximal vein of both lower extremities (H) [address] [place] [address] Social History Tobacco Use Types [...] you attend congregation or Patient refused 2020 congregation services? Do [...] INR Point of 1.3 (A) 0.86 - [facility] 1.14 [facility] Specimen (Source) Anatomical Location Collection Method / Collectio n Time Received Time / Laterality Volume 12/10/2017 Froylan Louise MD LAB - BLOOD ORDERABLES Performing Organization Address City/State/ZIP Code Phon e Number [facility] [address] [place] [address] documented in this encounter Visit Diagnoses Diagnosis Long-term (current) use of anticoagulant s Encounter for long-term (current) use of anticoagulants Acute deep vein thrombosis (DVT) of prox imal vein of both lower extremities (H) documented in this encounter Care Teams Corporate Tax Preparer Relationship Specialty Start Date End Date Froylan Louise MD PCP - General Family Practice 02/22/14 Froylan Louise MD PCP - Assigned PCP 03/13/14 08/25/18 Froylan Louise MD Assigned PCP 03/13/14 2 documented as of this encounter
--- OUTSIDE RECORDS SUMMARY | 2022-05-15 23:01 | XMS_ITS | Encounter Summary ---
:1955 Author Organization [place] Address [address] [place] [address] Care Team Providers Name Role Phone Froylan Louise MD Primary Care Provider Unavailable Froylan Louise MD Unavailable Unavailable Froylan Louise MD Unavailable Unavailable Reason for Visit Reason Onset Date Comments Nurse Advice Line 06/30/2017 Encounter Details Date Type Department Care Team Description 06/30/2017 Telephone [facility] Froylan Louise Ra, MD Nurse Advice Line [address] [phone] Social History Tobacco Use [...] you attend episcopal or Patient refused 2020 bahai services? Do [...] f/u if symptoms continue Esthela Corea RN ER PICKER Telephone Encounter - Froylan Louise MD - 06/30/2017 2:13 PM CST Can stop med. Follow-up with colon provider as planned. Ok to use fiber and increase fluids initially. I would hesitate to use other agents for stools as they may cause excessive diarrhea with not having colon - hopefully stopping abx improves harder stools. ER PICKER Telephone Encounter - Wendi Lindsay RN - [...] do about constipation. Wendi Lindsay RN, BSN ER PICKER documented in this encounter Plan of Treatment Upcoming Encounters Date Type Specialty Care Team Description 05/20/2022 Lab Lab documented as of this encounter Visit Diagnoses Not on filedocumented in this encounter Care Teams Correction Worker Relationship Specialty Start Date End Date Froylan Louise MD PCP - General Family Practice 02/22/14 Froylan Louise MD PCP - Assigned PCP 03/13/14 08/25/18 Froylan Louise MD Assigned PCP 03/13/14 2 documented as of this encounter
--- OUTSIDE RECORDS SUMMARY | 2022-05-15 23:01 | XMS_ITS | Encounter Summary ---
:1955 Author Organization [place] Address [address] [place] [address] Care Team Providers Name Role Phone Froylan Louise MD Primary Care Provider Unavailable Froylan Louise MD Unavailable Unavailable Froylan Louise MD Unavailable Unavailable Encounter Details Date Type Department Care Team Description 12/15/2017 Anticoagulation Therapy [facility] Long-term (current) Visit [facility] use of anticoagulants [address] [place] [address] Social History Tobacco Use Types [...] you attend religious or Patient refused 2020 voodoo services? Do [...] INR Point of 2.3 (A) 0.86 - [facility] 1.14 [facility] Specimen (Source) Anatomical Location Collection Method / Collectio n Time Received Time / Laterality Volume 12/15/2017 Froylan Louise MD LAB - BLOOD ORDERABLES Performing Organization Address City/State/ZIP Code Phon e Number [facility] [address] [place] [address] documented in this encounter Visit Diagnoses Diagnosis Long-term (current) use of anticoagulant s Encounter for long-term (current) use of anticoagulants documented in this encounter Care Teams Manager Electrical Relationship Specialty Start Date End Date Froylan Louise MD PCP - General Family Practice 02/22/14 Froylan Louise MD PCP - Assigned PCP 03/13/14 08/25/18 Froylan Louise MD Assigned PCP 03/13/14 2 documented as of this encounter
--- OUTSIDE RECORDS SUMMARY | 2022-05-15 23:01 | XMS_ITS | Encounter Summary ---
:1955 Author Organization [place] Address [address] [place] [address] Care Team Providers Name Role Phone Froylan Louise MD Primary Care Provider Unavailable Froylan Louise MD Unavailable Unavailable Froylan Louise MD Unavailable Unavailable Reason for Referral - Closed Specialty Diagnoses / Procedures Referred By Contact Refer red To Contact Diagnoses Postthrombotic syndrome Anticardiolipin antibody positive Chronic deep vein thrombosis (DVT) of lower extremity, unspecified laterality, unspecified vein (H) Luis A Charles MD [address] [facility] [address] [place] [address] Referral ID Status Reason Start Date Expiration Date Visits Requ ested Visits Authorized [id number] Closed 01/27/2018 01/27/2019 1 1 Reason for Visit Reason Comments Consult New consult for postthrombot ic syndrome and DVT, ref by Dr. Louise, records in [facility] Consultation - Closed Specialty Diagnoses / Procedures Referred By Contact Refer red To Contact Diagnoses Postthrombotic syndrome Anticardiolipin antibody positive Chronic deep vein thrombosis (DVT) of lower extremity, unspecified laterality, unspecified vein (H) Froylan Louise MD [facility] [address] [facility] [place] [address] [address] [facility], [address] [place] [address] Phone: Fax: Referral ID Status Reason Start Date Expiration Date Visits Requ ested Visits Authorized [id number] Closed 12/31/2017 12/31/2018 1 1 Encounter Details Date Type Department Care Team Description 01/05/2018 Office Visit [facility] Froylan Louise MD P ostthrombotic syndrome; Vascular Clinic Luis A Charles MD [address] [facility] [address] [place] [address] Anticardiolipin antibody positive; Platinum Chronic deep vein thrombosis (DVT) of lower extremity, unspecified laterality, unspecified vein (H) [address] [place] [phone] Social History Tobacco Use Types Packs/Day Years [...] attend oriental orthodox or Patient refused 2020 hoahaoism services? Do [...] and recently when the patient was in [place] he was feeling so much tired he [...] tumors, positive history for long travel from [place] to [place] recently Past Medical History I have reviewed [...] quantitative, Erythrocyte sedimentation rate auto, F2 prothrombin 45454B Mut Anal, Homocysteine, Lupus Anticoagulant Panel, Factor 5 leiden mutation analysis, Lupus Anticoagulant Panel (R76.8) Anticardiolipin antibody positive Plan: Antithrombin III, Beta 2 Glycoprotein Antibodies IGG IGM, Cardiolipin Kandice IgG and IgM, CBC with platelets differential, Comprehensive metabolic panel, CRP inflammation, D dimer quantitative, Erythrocyte sedimentation rate auto, F2 prothrombin [id number] Mut Anal, Homocysteine, Lupus Anticoagulant Panel, Factor 5 leiden mutation analysis, Lupus Anticoagulant Panel (I82.509) Chronic deep vein thrombosis (DVT) of lower extremity, unspecified laterality, unspecifiedvein (H) Plan: Antithrombin III, Beta 2 Glycoprotein Antibodies IGG IGM, Cardiolipin Kandice IgG and IgM, CBC with platelets differential, Comprehensive metabolic panel, CRP inflammation, D dimer quantitative, Erythrocyte sedimentation rate auto, F2 prothrombin [id number] Mut Anal, Homocysteine, Lupus Anticoagulant Panel, Factor [...] DVT, ref by Dr. Louise, records in [facility] Vitals: Vitals: 01/05/18 1426 01/05/18 1428 [...] Priority Associated Diagnoses Date/Ti me F2 prothrombin 33792X Lab Routine Postthromb otic syndrome 01/05/2018 4:15 [...] Lupus Anticoagulant Panel (01/05/2018 4:15 PM CDT) [facility] Method Time Signature Lupus Result Positive (A) NEG^Negat 01/08/2018 [facility] 1:05 PM CDT [facility] Comment: (Note) COMMENTS: INR is elevated. APTT [...] and edited/confirmed by me. Rose Dorsey M.D. ??[phone] 01/08/2018 ? INR = ?2.87 ?Reference range: [...] Organization Address City/State/ZIP Code Phon e Number [facility] [address] [place], [place] [id number] [place] [address] Erythrocyte sedimentation rate auto (01/05/2018 4:15 PM CDT) P athologist Signature Sed Rate 16 0 - 20 mm/h 01/05/2018 [place] 5:22 PM CDT [facility] Specimen Anatomical Collection Method Collection Time Receive d Time (Source) Location / / Volume Laterality Blood specimen 01/05/2018 4:15 PM 018 4:16 (specimen) CDT PM CDT Luis A Charles MD LAB - BLOOD ORDERABLES Performing Organization Address City/State/ZIP Code Phon e Number [facility] [address] [place] [address] D dimer quantitative (01/05/2018 4:15 PM CDT) athologist Signature D Dimer 0.5 0.0 - 0.50 01/06/2018 [facility] ug/ml FEU 2:[address] [facility] Comment: This D-dimer assay is intended for [...] Organization Address City/State/ZIP Code Phon e Number [facility] [address] [place] [address] (ABNORMAL) CRP inflammation (01/05/2018 4:15 PM CDT) [facility] gist Method Time Signature CRP Inflammation 19.0 (H) 0.0 - 8.0 01/06/2018 [place] [facility] F mg/L 4:48 PM CDT [facility] Specimen Anatomical Collection Method Collection Time Receive d Time (Source) Location / / Volume Laterality Blood specimen 01/05/2018 4:15 PM 018 4:16 (specimen) CDT PM CDT Luis A Charles MD LAB - BLOOD ORDERABLES Performing Organization Address City/State/ZIP Code Phon e Number [facility] [address] [place] [address] [facility] Comprehensive metabolic panel (01/05/2018 4:15 PM CDT) athologist Signature Sodium 142 133 - 144 01/06/2018 [place] mmol/L 4:08 PM CDT [facility] Potassium 4.3 3.4 - 5.3 01/06/2018 [place] mmol/L 4:08 PM T [facility] Chloride 107 94 - 109 01/06/2018 [place] mmol/L 4:08 PM T [facility] Carbon Dioxide 25 20 - 32 01/06/2018 [place] mmol/L 4:08 PM T [facility] Anion Gap 10 3 - 14 01/06/2018 [place] mmol/L 4:08 PM T [facility] Glucose 96 70 - 99 01/06/2018 [place] mg/dL 4:08 PM T [facility] Urea Nitrogen 16 7 - 30 01/06/2018 [place] mg/dL 4:08 PM T [facility] Creatinine 0.88 0.66 - 01/06/2018 [place] 1.25 mg/dL 4:08 PM T [facility] GFR Estimate 89 >60 01/06/2018 [place] mL/min/1.7 4:08 PM [address] [facility]INICS m2 [facility] Comment: Non GFR Calc GFR Estimate If >90 >60 mL/min/1.7m2 01/06/2018 4:08 P M [facility] Black [facility] Comment: GFR Calc Calcium 9.3 8.5 - 10.1 01/06/2018 4:08 PM [facility] mg/dL [facility] Bilirubin Total 0.6 0.2 - 1.3 mg/dL 01/06/2018 4:[address] [facility] Albumin 3.8 3.4 - 5.0 g/dL 01/06/2018 4:[address] [facility] Protein Total 8.0 6.8 - 8.8 g/dL 01/06/2018 4:[address] [facility] Alkaline Phosphatase 86 40 - 150 U/L 01/06/2018 4:08 PM [facility] ALT 23 0 - 70 U/L 01/06/2018 4:08 PM [facility] T [facility] AST 10 0 - 45 U/L 01/06/2018 4:08 PM [facility] CDT [facility] Specimen Anatomical Collection Method Collection Time Receive d Time (Source) Location / / Volume Laterality Blood specimen 01/05/2018 4:15 PM 018 4:16 (specimen) CDT PM CDT Luis A Charles MD LAB - BLOOD ORDERABLES Performing Organization Address City/State/ZIP Code Phon e Number [facility] [address] [place] [address] CBC with platelets differential (01/05/2018 4:15 PM CDT) [facility] Method Time Signature WBC 8.8 4.0 - 01/05/2018 [facility] 11.0 5:11 PM CDT [facility] 10e9/L [place] RBC Count 4.98 4.4 - 5.9 01/05/2018 [facility] 10e12/L 5:11 PM CDT [facility] [place] Hemoglobin 14.8 13.3 - 01/05/2018 [facility] 17.7 g/dL 5:11 PM CDT [facility] [place] Hematocrit 45.2 40.0 - 01/05/2018 [facility] 53.0 % 5:11 PM CDT [facility] [place] MCV 91 78 - 100 01/05/2018 [facility] fl 5:11 PM CDT [facility] [place] MCH 29.7 26.5 - 01/05/2018 [facility] 33.0 pg 5:11 PM CDT [facility] [place] MCHC 32.7 31.5 - 01/05/2018 [facility] 36.5 g/dL 5:11 PM CDT [facility] [place] RDW 13.3 10.0 - 01/05/2018 [facility] 15.0 % 5:11 PM CDT [facility] [place] Platelet Count 242 150 - 450 01/05/2018 [facility] 10e9/L 5:11 PM CDT [facility] [place] Diff Method Automated 01/05/2018 [facility] Method 5:11 PM CDT [facility] [place] % Neutrophils 78.1 % 01/05/2018 [facility] 5:11 PM CDT [facility] [place] % Lymphocytes 14.2 % 01/05/2018 [facility] 5:11 PM CD[facility] [place] % Monocytes 7.0 % 01/05/2018 [facility] 5:11 PM CD[facility] [place] % Eosinophils 0.5 % 01/05/2018 [facility] 5:11 PM CDT [facility] [place] % Basophils 0.2 % 01/05/2018 [place] 5:11 PM CDT [facility] [place] Absolute 6.9 1.6 - 8.3 01/05/2018 [place] Neutrophil 10e9/L 5:11 PM CDT [facility] [place] Absolute 1.2 0.8 - 5.3 01/05/2018 [place] Lymphocytes 10e9/L 5:11 PM CDT [facility] [place] Absolute 0.6 0.0 - 1.3 01/05/2018 [place] Monocytes 10e9/L 5:11 PM CDT [facility] [place] Absolute 0.0 0.0 - 0.7 01/05/2018 [place] Eosinophils 10e9/L 5:11 PM CDT [facility] [place] Absolute 0.0 0.0 - 0.2 01/05/2018 [place] Basophils 10e9/L 5:11 PM CDT [facility] [place] Specimen Anatomical Collection Method Collection Time Receive d Time (Source) Location / / Volume Laterality Blood specimen 01/05/2018 4:15 PM 018 4:16 (specimen) CDT PM CDT Luis A Charles MD LAB - BLOOD ORDERABLES Performing Organization Address City/State/ZIP Code Phon e Number [facility] [address] [place] [address] Cardiolipin Kandice IgG and IgM (01/05/2018 4:15 PM CDT) P athologist Signature Cardiolipin <1.6 0.0 - 19.9 01/07/2018 [facility] IgG GPL-U/mL 9:22 AM CDT [facility] Comment: Negative Cardiolipin Antibody 2.9 0.0 - 19.9 01/07/2018 9:22 AM [facility] IgM MPL-U/mL T [facility] Comment: Negative Specimen Anatomical Collection Method Collection Time Receive d Time (Source) Location / / Volume Laterality Blood specimen 01/05/2018 4:15 PM 018 4:16 (specimen) CDT PM CDT Luis A Charles MD LAB - BLOOD ORDERABLES Performing Organization Address City/State/ZIP Code Phon e Number [facility] [phone] [place] [address] Beta 2 Glycoprotein Antibodies IGG IGM (01/05/2018 4:15 PM CDT) Analysis Performed At Patho logis Time Signature Beta 2 <0.6 <7 U/mL 01/07/2018 [facility] Glycoprotein 1 1:34 PM CDT [facility] Antibody IgG [facility] Comment: Negative Beta 2 Glycoprotein 1 1.6 <7 U/mL 01/07/2018 1:31 PM CDT [facility] Antibody IgM [facility] Comment: Negative Specimen Anatomical Collection Method Collection Time Receive d Time (Source) Location / / Volume Laterality Blood specimen 01/05/2018 4:15 PM 018 4:16 (specimen) CDT PM CDT Luis A Charles MD LAB - BLOOD ORDERABLES Performing Organization Address City/State/ZIP Code Phon e Number [address] Antithrombin III (01/05/2018 4:15 PM CDT) Analysis Performed At [facility] Time Signature Antithrombin III 107 85 - 135 % 01/08/2018 [facility] Chromogenic 7:13 AM CDT [facility] Specimen Anatomical Collection Method Collection Time Receive d Time (Source) Location / / Volume Laterality Blood specimen 01/05/2018 4:15 PM 018 4:16 (specimen) CDT PM CDT Luis A Charles MD LAB - BLOOD ORDERABLES Performing Organization Address City/[facility]/ZIP Code Phon e Number [address] documented in this encounter Visit Diagnoses Diagnosis 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
--- OUTSIDE RECORDS SUMMARY | 2022-05-15 23:02 | XMS_ITS | Encounter Summary ---
:1955 Author Organization [place] Address [address] [place] [address] Care Team Providers Name Role Phone Froylan Louise MD Primary Care Provider Unavailable Froylan Louise MD Unavailable Unavailable Froylan Louise MD Unavailable Unavailable Reason for Visit Reason Onset Date Comments CT Results 06/24/[address] [facility] CT and US Encounter Details Date Type Department Care Team Description 06/24/2017 Telephone [facility] Froylan Louise CT R esults ([facility] CT and Clinic Liliam VILLASEÑOR US) [facility], [address] [place] [address] Social History Tobacco Use Types [...] you attend sabianist or Patient refused 2020 zoroastrianism services? Do [...] will call in AM Esthela Corea RN NEERING DESIGN MANAGER Telephone Encounter - Froylan Louise MD [...] get patient appt with him in clinic. NEERING DESIGN MANAGER Telephone Encounter - Carolin Dawson - 06/25/2017 7:09 AM CST Placed records on Dr. Louise's station to review. Carolin Dawson Electron Beam Machine Welder Setter NEERING DESIGN MANAGER Telephone Encounter - Irma Dunaway - 06/24/2017 10:00 AM CST Ph. [phone] and US results from [facility]. I called and received the reports. Patient also calling for lab results. Thanks! Irma Dunaway Electron Beam Machine Welder Setter NEERING DESIGN MANAGER documented in this encounter Plan of Treatment Upcoming Encounters Date Type Specialty Care Team Description 05/20/2022 Lab Lab documented as of this encounter Visit Diagnoses Not on filedocumented in this encounter Care Teams Sheeter Machine Operator Relationship Specialty Start Date End Date Froylan Louise MD PCP - General Family Practice 02/22/14 Froylan Louise MD PCP - Assigned PCP 03/13/14 08/25/18 Froylan Louise MD Assigned PCP 03/13/14 2 documented as of this encounter
--- OUTSIDE RECORDS SUMMARY | 2022-05-15 23:02 | XMS_ITS | Encounter Summary ---
:1955 Author Organization [facility] Address [address] [place] [address] Care Team Providers Name Role Phone Froylan Louise MD Primary Care Provider Unavailable Froylan Louise MD Unavailable Unavailable Froylan Louise MD Unavailable Unavailable Reason for Visit Reason Comments Medication Refill ATROVENT HFA 17 MCG/ACT Inha ler Encounter Details Date Type Department Care Team Description 12/25/2016 Refill [facility] Froylan Louise Ra, Medication Refill Chhaya VILLASEÑOR (ATROVENT HFA 17 MCG/ACT [address] [facility]) [place] [address] Social History Tobacco Use [...] you attend buddhist or Patient refused 2020 anabaptism services? Do [...] # refills: 2 Last Office Visit with [facility] or [facility] prescribing provider: 05/31/2016 Future Office [...] asthma documented in this encounter Care Teams Agricultural Technical Officer Relationship Specialty Start Date End Date Froylan Louise MD PCP - General Family Practice 02/22/14 Froylan Louise MD PCP - Assigned PCP 03/13/14 08/25/18 Froylan Louise MD Assigned PCP 03/13/14 2 documented as of this encounter
--- OUTSIDE RECORDS SUMMARY | 2022-05-15 23:02 | XMS_ITS | Encounter Summary ---
:1955 Author Organization [facility] Address [address] [place] [address] Care Team Providers Name Role Phone Froylan Louise MD Primary Care Provider Unavailable Froylan Louise MD Unavailable Unavailable Froylan Louise MD Unavailable Unavailable Reason for Visit Reason Onset Date Comments Panel Management 03/04/2017 Encounter Details Date Type Department Care Team Description 03/04/2017 Telephone [facility] Froylan Louise Ra, MD Panel Management [address] [address] Social History Tobacco Use [...] you attend yarsanism or Patient refused 2020 faith services? Do [...] on filedocumented in this encounter Care Teams Internet Salesperson Relationship Specialty Start Date End Date Froylan Louise MD PCP - General Family Practice 02/22/14 Froylan Louise MD PCP - Assigned PCP 03/13/14 08/25/18 Froylan Louise MD Assigned PCP 03/13/14 2 documented as of this encounter
--- OUTSIDE RECORDS SUMMARY | 2022-05-15 23:02 | XMS_ITS | Encounter Summary ---
:1955 Author Organization [place] Address [address] [place] [address] Care Team Providers Name Role Phone Froylan Louise MD Primary Care Provider Unavailable Froylan Louise MD Unavailable Unavailable Froylan Louise MD Unavailable Unavailable Encounter Details Date Type Department Care Team Description 05/25/2017 Orders Only [facility] Hyp erlipidemia LDL goal <160; [facility] Elevated fasting glucose; [address] [facility] Other ulcerative colitis wit hout complication (H) [place] [address] Social History Tobacco [...] containing 4 or more times a w [facility] 05/25/2021 alcohol? How many drinks containing [...] you attend anabaptist or Patient refused 2020 protestant services? Do [...] ults for this DIRECT LDL PANEL AM SPECIAL EDUCATION COORDINATOR goal <160 procedure a re in the results section. HEMOGLOBIN A1C Routine 05/25/2017 8:10 Elevated fasting Result s for this AM SPECIAL EDUCATION COORDINATOR glucose procedure are i n the results section. COMPREHENSIVE Routine 05/25/2017 8:10 Other ulcerative Results for this METABOLIC PANEL AM SPECIAL EDUCATION COORDINATOR colitis without procedure are in complication (H) the results section. CBC WITH PLATELETS Routine 05/25/2017 8:10 Other ulcerative Re sults for this AM SPECIAL EDUCATION COORDINATOR colitis without procedure ar e in complication (H) the results section. documented in this encounter Results CBC with platelets (05/25/2017 8:10 AM SPECIAL EDUCATION COORDINATOR) athologist Signature WBC 7.5 4.0 - 11.0 05/26/2017 [facility] 10e9/L 11:23 AM [facility] RBC Count 4.86 4.4 - 5.9 05/26/2017 [facility] 10e12/L 11:23 AM [facility] Hemoglobin 14.6 13.3 - 05/26/2017 [facility] 17.7 g/dL 11:23 AM [facility] Hematocrit 45.4 40.0 - 05/26/2017 [facility] 53.0 % 11:23 AM [facility] MCV 93 78 - 100 05/26/2017 [facility] fl 11:23 AM [facility] MCH 30.0 26.5 - 05/26/2017 [facility] 33.0 pg 11:23 AM [facility] MCHC 32.2 31.5 - 05/26/2017 [facility] 36.5 g/dL 11:23 AM [facility] RDW 13.7 10.0 - 05/26/2017 [facility] 15.0 % 11:23 AM [facility] Platelet Count 213 150 - 450 05/26/2017 [facility] 10e9/L 11:23 AM [facility] Specimen Anatomical Collection Method Collection Time Receive d Time (Source) Location / / Volume Laterality Blood specimen 05/25/2017 8:10 AM 017 (specimen) SPECIAL EDUCATION COORDINATOR 10:54 AM SPECIAL EDUCATION COORDINATOR Froylan Louise MD LAB - BLOOD ORDERABLES Performing Organization Address City/State/ZIP Code Phon e Number [facility] [id number] [place] [address] Comprehensive metabolic panel (05/25/2017 8:10 AM SPECIAL EDUCATION COORDINATOR) P athologist Signature Sodium 140 133 - 144 05/26/2017 [facility] mmol/L 4:44 PM [facility] Potassium 4.5 3.4 - 5.3 05/26/2017 [facility] mmol/L 4:44 PM [facility] Chloride 107 94 - 109 05/26/2017 [facility] mmol/L 4:44 PM [facility] Carbon Dioxide 24 20 - 32 05/26/2017 [facility] mmol/L 4:44 PM [facility] Anion Gap 9 3 - 14 05/26/2017 [place] mmol/L 4:44 PM [facility] Glucose 97 70 - 99 05/26/2017 [place] mg/dL 4:44 PM [facility] Urea Nitrogen 16 7 - 30 05/26/2017 [facility] mg/dL 4:44 PM [facility] Creatinine 0.91 0.66 - 05/26/2017 [facility] 1.25 mg/dL 4:44 PM [facility] GFR Estimate 86 >60 05/26/2017 [place] mL/min/1.7 4:[address] Comment: Non GFR Calc GFR Estimate If >90 >60 mL/min/1.7m2 05/26/2017 4:44 P M [facility] Black [facility] Comment: GFR Calc Calcium 9.0 8.5 - 10.1 05/26/2017 4:44 PM [facility] mg/dL [facility] Bilirubin Total 1.2 0.2 - 1.3 mg/dL 05/26/2017 4:44 PM [facility] Albumin 3.4 3.4 - 5.0 g/dL 05/26/2017 4:44 PM [facility] Protein Total 7.2 6.8 - 8.8 g/dL 05/26/2017 4:44 PM [facility] Alkaline Phosphatase 91 40 - 150 U/L 05/26/2017 4:44 PM [facility] ALT 27 0 - 70 U/L 05/26/2017 4:44 PM [facility] AST 17 0 - 45 U/L 05/26/2017 4:44 PM [facility] Specimen Anatomical Collection Method Collection Time Receive d Time (Source) Location / / Volume Laterality Blood specimen 05/25/2017 8:10 AM 017 (specimen) SPECIAL EDUCATION COORDINATOR 10:54 AM SPECIAL EDUCATION COORDINATOR Froylan Louise MD LAB - BLOOD ORDERABLES Performing Organization Address City/[facility]/ZIP Code Phon e Number [facility] [address] [place] [address] Hemoglobin A1c (05/25/2017 8:10 AM SPECIAL EDUCATION COORDINATOR) athologist Signature Hemoglobin A1C 5.8 4.3 - 6.0 05/26/2017 [facility] % 11:12 AM [facility] Specimen Anatomical Collection Method Collection Time Receive d Time (Source) Location / / Volume Laterality Blood specimen 05/25/2017 8:10 AM 017 (specimen) SPECIAL EDUCATION COORDINATOR 10:54 AM SPECIAL EDUCATION COORDINATOR Froylan Louise MD LAB - BLOOD ORDERABLES Performing Organization Address City/[facility]/ZIP Code Phon e Number [facility] [id number] [place] [address] Lipid panel reflex to direct LDL Fasting (05/25/2017 8:10 AM SPECIAL EDUCATION COORDINATOR) [facility] gist Method Time Signature Cholesterol 166 <200 [facility] mg/dL 4:44 PM [facility] Triglycerides 109 <150 05/26/2017 [facility] mg/dL 4:44 PM [facility] HDL Cholesterol 52 >39 mg/dL [facility]/26/[facility] 4:44 PM [facility] LDL Cholesterol 92 <100 05/26/2017 [facility] Calculated mg/dL 4:44 PM [facility] Comment: Desirable: <100 mg/dl Non HDL Cholesterol 114 <130 mg/dL 05/26/2017 4:44 PM SPECIAL EDUCATION COORDINATOR [facility] Specimen Anatomical Collection Method Collection Time Receive d Time (Source) Location / / Volume Laterality Blood specimen 05/25/2017 8:10 AM 017 (specimen) SPECIAL EDUCATION COORDINATOR 10:54 AM SPECIAL EDUCATION COORDINATOR Froylan Louise MD LAB - BLOOD ORDERABLES Performing Organization Address City/State/ZIP Code Phon e Number [facility] [address] [place] [address] documented in this encounter Visit Diagnoses Diagnosis Hyperlipidemia LDL goal <160 Other and unspecified hyperlipidemia Elevated fasting glucose Impaired fasting glucose Other ulcerative colitis without complic ation (H) documented in this encounter Care Teams Press Operator Carbon Products Relationship Specialty Start Date End Date Froylan Louise MD PCP - General Family Practice 02/22/14 Froylan Louise MD PCP - Assigned PCP 03/13/14 08/25/18 Froylan Louise MD Assigned PCP 03/13/14 2 documented as of this encounter
--- OUTSIDE RECORDS SUMMARY | 2022-05-15 23:02 | XMS_ITS | Encounter Summary ---
:1955 Author Organization [place] Address [address] [place] [address] Care Team Providers Name Role Phone Froylan Louise MD Primary Care Provider Unavailable Froylan Louise MD Unavailable Unavailable Froylan Louise MD Unavailable Unavailable Reason for Visit Reason Comments Medication Refill ATROVENT Encounter Details Date Type Department Care Team Description 04/01/[address] [facility] Froylan Louise Ra, Medication Refill Chhaya VILLASEÑOR (ATROVENT ) [address] [place] [address] Social History Tobacco Use [...] attend oriental orthodox or Patient refused 2020 rastafarian services? Do [...] # refills: 2 Last Office Visit with [facility] [facility] or [facility] prescribing provider: 05/31/2016 Future Office [...] asthma documented in this encounter Care Teams Filling Machine Operator Relationship Specialty Start Date End Date Froylan Louise MD PCP - General Family Practice 02/22/14 Froylan Louise MD PCP - Assigned PCP 03/13/14 08/25/18 Froylan Louise MD Assigned PCP 03/13/14 2 documented as of this encounter
--- OUTSIDE RECORDS SUMMARY | 2022-05-15 23:02 | XMS_ITS | Encounter Summary ---
:1955 Author Organization [place] Address [address] [place] [address] Care Team Providers Name Role Phone Froylan Louise MD Primary Care Provider Unavailable Froylan Louise MD Unavailable Unavailable Froylan Louise MD Unavailable Unavailable Reason for Visit Reason Comments Medication Refill immodium Encounter Details Date Type Department Care Team Description 06/10/2017 Refill [facility] Froylan Lousie Ra, Medication Refill Chhaya VILLASEÑOR (immodium) [address] [place] [address] Social History Tobacco Use [...] you attend latter-day or Patient refused 2020 evangelical services? Do [...] appt on 06/13/17 Wendi Lindsay RN, BSN R FILTERER documented in this encounter Plan of Treatment Upcoming Encounters Date Type Specialty Care Team Description 05/20/2022 Lab Lab documented as of this encounter Visit Diagnoses Diagnosis H/O ulcerative colitis Personal history of other diseases of di gestive system documented in this encounter Care Teams Product Planner Relationship Specialty Start Date End Date Froylan Louise MD PCP - General Family Practice 02/22/14 Froylan Louise MD PCP - Assigned PCP 03/13/14 08/25/18 Froylan Louise MD Assigned PCP 03/13/14 2 documented as of this encounter
--- OUTSIDE RECORDS SUMMARY | 2022-05-15 23:02 | XMS_ITS | Encounter Summary ---
:1955 Author Organization [place] Address [address] [place] [address] Care Team Providers Name Role Phone Froylan Louise MD Primary Care Provider Unavailable Froylan Louise MD Unavailable Unavailable Froylan Louise MD Unavailable Unavailable Reason for Visit Reason Comments Medication Refill qvar Encounter Details Date Type Department Care Team Description 04/08/2017 Refill [facility] Froylan Louise Ra, Medication Refill (qvar) Chhaya VILLASEÑOR [address] [place] [address] Social History Tobacco Use [...] you attend synagogue or Patient refused 2020 quaker services? Do [...] # refills: 3 Last Office Visit with [facility] or [facility] prescribing provider: 05/31/2016 Future Office Visit: Date [...] asthma documented in this encounter Care Teams Sustainable Design Consultant Relationship Specialty Start Date End Date Froylan Louise MD PCP - General Family Practice 02/22/14 Froylan Louise MD PCP - Assigned PCP 03/13/14 08/25/18 Froylan Louise MD Assigned PCP 03/13/14 2 documented as of this encounter
--- OUTSIDE RECORDS SUMMARY | 2022-05-15 23:02 | XMS_ITS | Encounter Summary ---
:1955 Author Organization [place] Address [address] [place] [address] Care Team Providers Name Role Phone Froylan Louise MD Primary Care Provider Unavailable Froylan Louise MD Unavailable Unavailable Froylan Louise MD Unavailable Unavailable Reason for Visit Reason Onset Date Comments Erroneous encounter-disregard 05/31/2016 Encounter Details Date Type Department Care Team Description 05/31/2016 [facility] Froylan Louise Ra, Erroneous Chhaya VILLASEÑOR encounter-disregard [address] [place] [address] Social History Tobacco Use [...] system documented in this encounter Care Teams Manager Utilization Relationship Specialty Start Date End Date Froylan Louise MD PCP - General Family Practice 02/22/14 Froylan Louise MD PCP - Assigned PCP 03/13/14 08/25/18 Froylan Louise MD Assigned PCP 03/13/14 2 documented as of this encounter
--- OUTSIDE RECORDS SUMMARY | 2022-05-15 23:02 | XMS_ITS | Encounter Summary ---
:1955 Author Organization [facility] Address [address] [place] [address] Care Team Providers Name Role Phone Froylan Louise MD Primary Care Provider Unavailable Froylan Louise MD Unavailable Unavailable Froylan Louise MD Unavailable Unavailable Reason for Visit Reason Onset Date Comments Panel Management 06/09/2017 Encounter Details Date Type Department Care Team Description 06/09/2017 Telephone [facility] Froylan Louise Ra, MD Panel Management [address] [address] Social History Tobacco Use [...] you attend advent or Patient refused 2020 tenriism services? Do [...] Gibson CMA Chart routed to none . TRUCTION HELPER documented in this encounter Plan of Treatment Upcoming Encounters Date Type Specialty Care Team Description 05/20/2022 Lab Lab documented as of this encounter Visit Diagnoses Diagnosis Anal fistula - Primary documented in this encounter Care Teams Sheet Metal Lay Out Worker Relationship Specialty Start Date End Date Froylan Louise MD PCP - General Family Practice 02/22/14 Froylan Louise MD PCP - Assigned PCP 03/13/14 08/25/18 Froylan Louise MD Assigned PCP 03/13/14 2 documented as of this encounter
--- OUTSIDE RECORDS SUMMARY | 2022-05-15 23:02 | XMS_ITS | Encounter Summary ---
:1955 Author Organization [facility] Address [address] [place] [address] Care Team Providers Name Role Phone Froylan Louise MD Primary Care Provider Unavailable Froylan Louise MD Unavailable Unavailable Froylan Louise MD Unavailable Unavailable Reason for Visit Reason Onset Date Comments Refill Request 08/22/2016 [facility] HFA inhaler 17MCG Encounter Details Date Type Department Care Team Description 08/22/2016 Refill [facility] Froylan Louise Ra, Refill Request (Marcy Shaver MD HFA inhaler 17MCG) [address] [place] [address] Social History Tobacco Use [...] you attend bahai or Patient refused 2020 bahai services? Do [...] sent to patient Wendi Lindsay RN, BSN HARNESS DESIGN ENGINEER Telephone Encounter - Arleen Vidal RRT - 08/22/2016 8:41 PM CST Atrovent HFA inhaler 17MCG Last Written Prescription Date: 05/31/2016 Last Fill Quantity: 3inh, # refills: 3 Last [facility] [place] [facility] prescribing provider: 05/31/2016 Future Office Visit: Date [...] Pt requests 3 inhalers at a time HARNESS DESIGN ENGINEER documented in this encounter Plan of Treatment Upcoming Encounters Date Type Specialty Care Team Description 05/20/2022 Lab Lab documented as of this encounter Visit Diagnoses Diagnosis Mild persistent asthma without complicat ion Unspecified asthma documented in this encounter Care Teams Transplanter Relationship Specialty Start Date End Date Froylan Louise MD PCP - General Family Practice 02/22/14 Froylan Louise MD PCP - Assigned PCP 03/13/14 08/25/18 Froylan Louise MD Assigned PCP 03/13/14 2 documented as of this encounter
--- OUTSIDE RECORDS SUMMARY | 2022-05-15 23:02 | XMS_ITS | Encounter Summary ---
:1955 Author Organization [facility] Address [address] [place] [address] Care Team Providers Name Role Phone Froylan Louise MD Primary Care Provider Unavailable Froylan Louise MD Unavailable Unavailable Froylan Louise MD Unavailable Unavailable Reason for Visit Reason Comments Medication Refill zolpidem Encounter Details Date Type Department Care Team Description 01/27/2017 Refill [facility] Froylan Louise Ra, Medication Refill Chhaya VILLASEÑOR (zolpidem) [address] [place] [address] Social History Tobacco Use [...] you attend zoroastrianism or Patient refused 2020 scientologist services? Do [...] 12:42 PM CDT rx approved faxed to [facility]. Irma Dunaway Coach Tour Driver Telephone Encounter - Froylan Louise MD - 01/28/2017 12:22 PM CDT Refilled. Telephone Encounter - Esthela Corea RN - 01/28/2017 9:51 AM CDT RX monitoring program ([place]) reviewed: [employer] ARCHIT[employer] reviewed- no concerns Last fill 11/10 [place] profile: [email or web address] Esthela Corea RN Telephone Encounter - Carlos [...] with [facility] [place]: 05/31/2016 Future Office visit: Controlled substance agreement on file: No. Processing: Fax Rx to [facility] pharmacy [employer] ARCHITECT checked in past 6 months? No, route to CINDY lBack XRT documented in this encounter Plan of Treatment Upcoming Encounters Date Type Specialty Care Team Description 05/20/2022 Lab Lab documented as of this encounter Visit Diagnoses Diagnosis Insomnia, unspecified type documented in this encounter Care Teams Carbon Sequestration Plant Engineer Relationship Specialty Start Date End Date Froylan Louise MD PCP - General Family Practice 02/22/14 Froylan Louise MD PCP - Assigned PCP 03/13/14 08/25/18 Froylan Louise MD Assigned PCP 03/13/14 2 documented as of this encounter
--- OUTSIDE RECORDS SUMMARY | 2022-05-15 23:02 | XMS_ITS | Encounter Summary ---
:1955 Author Organization [place] Address [address] [place] [address] Care Team Providers Name Role Phone Froylan Louise MD Primary Care Provider Unavailable Froylan Louise MD Unavailable Unavailable Froylan Louise MD Unavailable Unavailable Reason for Visit Reason Comments Medication Refill Encounter Details Date Type Department Care Team Description 09/23/2016 Refill [facility] Froylan Louise Ra, MD Medication Refill [address] [address] Social History Tobacco Use [...] you attend sikh or Patient refused 2020 jewish services? Do [...] 09/23/2016 4:40 PM CDT Prescription approved per [facility] Refill Protocol. Wendi Lindsay RN, BSN Telephone Encounter - Irma Dunaway - 09/23/2016 4:02 PM CDT Pending Prescriptions: Disp Refills triamcinolone (KENALOG) 0.1 % cream [Phar*30 g 1 Sig: APPLY TOPICALLY TWICE DAILY Last Written Prescription Date: 08/31/2015 Last Fill Quantity: 30 g, # refills: 3 Last Office Visit with [facility], [facility] or Health prescribing provider: 05/31/2016 Future Office visit: Routing refill request to provider for review/approval because: Drug not on the [facility], [facility] or Health refill protocol or controlled substance Irma Dunaway Care Giver documented in this encounter Plan of Treatment Upcoming Encounters Date Type Specialty Care Team Description 05/20/2022 Lab Lab documented as of this encounter Visit Diagnoses Diagnosis Lichen planus documented in this encounter Care Teams Wardrobe Technician Relationship Specialty Start Date End Date Froylan Louise MD PCP - General Family Practice 02/22/14 Froylan Louise MD PCP - Assigned PCP 03/13/14 08/25/18 Froylan Louise MD Assigned PCP 03/13/14 2 documented as of this encounter
--- OUTSIDE RECORDS SUMMARY | 2022-05-15 23:02 | XMS_ITS | Encounter Summary ---
:1955 Author Organization [place] Address [address] [place] [address] Care Team Providers Name Role Phone Froylan Louise MD Primary Care Provider Unavailable Froylan Louise MD Unavailable Unavailable Froylan Louise MD Unavailable Unavailable Reason for Visit Reason Comments Cough Encounter Details Date Type Department Care Team Description 10/01/2016 Office Visit [facility] Posada, Acute bronchitis, Clinic Chhaya VILLASEÑOR unspecified organism [address] (Primary Dx) [place] [address] [phone] Social History Tobacco Use Types Packs/Day Years [...] you attend alevism or Patient refused 2020 scientology services? Do [...] Primary documented in this encounter Care Teams Atlassian Administrator Relationship Specialty Start Date End Date Froylan Louise MD PCP - General Family Practice 02/22/14 Froylan Louise MD PCP - Assigned PCP 03/13/14 08/25/18 Froylan Louise MD Assigned PCP 03/13/14 2 documented as of this encounter
--- OUTSIDE RECORDS SUMMARY | 2022-05-15 23:02 | XMS_ITS | Encounter Summary ---
:1955 Author Organization [place] Address [address] [place] [address] Care Team Providers Name Role Phone Froylan Louise MD Primary Care Provider Unavailable Froylan Louise MD Unavailable Unavailable Froylan Louise MD Unavailable Unavailable Reason for Visit Reason Onset Date Comments Refill Request 06/03/2016 loperamide Encounter Details Date Type Department Care Team Description [facility], Refill Request Chhaya VILLASEÑOR (loperamide) [address] [place] [address] Social History Tobacco Use [...] you attend hinduism or Patient refused 2020 islam services? Do [...] Drug dose warning Wendi Lindsay RN, BSN LE EDGER Telephone Encounter - Carlos Alberto Black - 06/03/2016 10:10 AM CST Pending Prescriptions: Disp Refills loperamide (IMODIUM) 2 MG capsule 480 ca*12 Sig: Take 3-4 capsules (6-8 mg) by mouth 3 times daily as needed for diarrhea Last Written Prescription Date: 05/04/2015 Last Fill Quantity: 480, # refills: 12 Last Office Visit with [facility] or [facility] prescribing provider: 05/31/2016 Future Office visit: Routing refill request to provider for review/approval because: Drug not on the [facility] or [facility] refill protocol or controlled substance Carlos Alberto Black XRT LE EDGER documented in this encounter Plan of Treatment Upcoming Encounters Date Type Specialty Care Team Description 05/20/2022 Lab Lab documented as of this encounter Visit Diagnoses Diagnosis H/O ulcerative colitis - Primary Personal history of other diseases of di gestive system documented in this encounter Care Teams Mill Platform Supervisor Relationship Specialty Start Date End Date Froylan Louise MD PCP - General Family Practice 02/22/14 Froylan Louise MD PCP - Assigned PCP 03/13/14 08/25/18 Froylan Louise MD Assigned PCP 03/13/14 2 documented as of this encounter
--- OUTSIDE RECORDS SUMMARY | 2022-05-15 23:02 | XMS_ITS | Encounter Summary ---
:1955 Author Organization [place] Address [address] [place] [address] Care Team Providers Name Role Phone Froylan Louise MD Primary Care Provider Unavailable Froylan Louise MD Unavailable Unavailable Froylan Louise MD Unavailable Unavailable Reason for Visit Reason Comments Medication Refill Encounter Details Date Type Department Care Team Description 04/08/2017 Refill [facility] Froylan Louise Ra, MD Medication Refill [address] [address] Social History Tobacco Use [...] containing 4 or more times a w [place] 05/25/2021 alcohol? How many drinks containing alcohol [...] you attend rastafarian or Patient refused 2020 faith services? Do [...] asthma documented in this encounter Care Teams Keel Press Operator Relationship Specialty Start Date End Date Froylan Louise MD PCP - General Family Practice 02/22/14 Froylan Louise MD PCP - Assigned PCP 03/13/14 08/25/18 Froylan Louise MD Assigned PCP 03/13/14 2 documented as of this encounter
--- OUTSIDE RECORDS SUMMARY | 2022-05-15 23:02 | XMS_ITS | Encounter Summary ---
:1955 Author Organization [place] Address [facility] [place] [address] Care Team Providers Name Role Phone Froylan Louise MD Primary Care Provider Unavailable Froylan Louise MD Unavailable Unavailable Froylan Louise MD Unavailable Unavailable Reason for Visit Auth/Cert Specialty Diagnoses / Procedures Referred By Contact Refer red To Contact Gastroenterology Diagnoses Ulcerative Colitis Rh Endoscopy Procedures POUCHOSCOPY [address] [place] [address] Phone: Fax: Referral ID Status Reason Start Date Expiration Date Visits Requ ested Visits Authorized [id number] 1 1 Encounter Details Date Type Department Care Team Description 06/20/[address] [facility] Julian Suazo MD Endoscopy [place] [facility] [address] [place], [place] [address] [facility] [address] [facility] [address] [place], [place] [id number] (Wo rk) Social History Tobacco Use Types [...] containing 4 or more times a w [place] 05/25/2021 alcohol? How many drinks containing alcohol [...] 05/25/2021 organizations such as mosque groups, unions, fra[employer]inium Pharmaceuticals or athletic groups, or school groups? How [...] Comments Blood Pressure 113/82 06/20/2017 11:30 AM SUPERVISOR FACEPIECE LINE Pulse - - Temperature - - Respiratory Rate 16 06/20/2017 11:30 AM SUPERVISOR FACEPIECE LINE Oxygen Saturation 96% 06/20/2017 11:30 AM SUPERVISOR FACEPIECE LINE Inhaled Oxygen Concentration - - Weight 106.1 kg (234 lb) 06/20/2017 10:29 AM SUPERVISOR FACEPIECE LINE Height 179.1 cm (5' 10.5) 06/20/2017 10:29 AM SUPERVISOR FACEPIECE LINE Body Mass Index 33.1 06/20/2017 10:29 AM SUPERVISOR FACEPIECE LINE documented in this encounter Discharge Instructions Discharge [...] Adults Signature: Relationship to Patient: Nurses Signature: RVISOR FACEPIECE LINE documented in this encounter Medications at Time [...] AM Corie calderon for this GI EXAM SUPERVISOR FACEPIECE LINE procedure are i n the results section. ENDOSCOPY, POUCH, 06/20/2017 10:33 AM Ulcerative Colit is DIAGNOSTIC SUPERVISOR FACEPIECE LINE Special Needs Needs flex Sig scope documented in this encounter Results PROVGI - PROVATION GI EXAM (06/20/2017 10:40 AM SUPERVISOR FACEPIECE LINE) [facility] gist Method Time Signature PROVGI [facility] RADIO LOGY RESULTS Patient Name: Virgil Christine ? Procedure Date: 06/20/2017 10:40 AM ? Accou nt Number: [id number] Date of : 1955 ?Admit Type: Out patient Age: 61 ? Gender: Male Attending MD: Chase Suazo MD ?Total Sedation Time: Instrument Name: 138 ? Procedure: ?Pouchoscopy Indications: ?History of total proctocolectomy, h/o ulcerative ?colitis Providers: ?Chase Suazo MD (Docto r) Referring MD: ? [facility] Medicines: ?Midazolam 3 mg [...] The ?Olympus Peds Colonoscope Model #PCF-H190L, ?Endora#138, SN#[id number] was introduced through the ?ileoanal anastomosis via [...] Procedure Code(s): ? --- Professional --- ? 39633, Endoscopic evaluation of s mall intestinal pouch (eg, Kock pouch, ? ileal reservoir [S or J]); diagnostic, including kashmir ection of ? specimen(s) by brushing or washin g, when performed (separate procedure) Diagnosis Code(s): ? --- Professional --- ? Z90.49, Acquired absence of other specified parts o f digestive tract CPT copyright 2016 [employer] [place] [employer]. All rights reserved. The codes documented in this report are prelimin dillon and upon coat cutter review may be revised to meet current compliance requirements. Chase Suazo MD 06/20/2017 10:58:50 AM I was physically present for the entire viewing portion of t he exam. Chase Suazo MD Number of Addenda: 0 Note Initiated On: 06/20/2017 10:40 AM MRN: ?[id number] Procedure Date: ? 06/20/2017 10:40:57 AM Total Procedure Duration: 0 hours 7 minutes 0 seconds Estimated Blood Loss: ? Scope In: 10:45:47 AM Scope Out: 10:52:47 AM Specimen (Source) Anatomical Collection Method Collection Time Re ceived Time Location / / Volume Laterality 06/20/2017 10:40 AM SUPERVISOR FACEPIECE LINE Froylan Louise MD PROCEDURES Performing Organization Address [...] (PF) (SUBLIMAZE) injection Given 06/20/2017 10:46 AM SUPERVISOR FACEPIECE LINE 100 mcg PRN, Administer over 3-5 Minutes, Starting on Fri06/20/17 at 1041, Intra-procedure Given 06/20/2017 10:41 AM SUPERVISOR FACEPIECE LINE 100 mcg midazolam (VERSED) injection Given 06/20/2017 10:46 AM SUPERVISOR FACEPIECE LINE 1 mg Administer over 2 Minutes, PRN, Starting on Fri06/20/17 at 1041, Intra-procedure Given 06/20/2017 10:41 AM SUPERVISOR FACEPIECE LINE 2 mg ondansetron (ZOFRAN) injection 4 mg [...] Recently Administered Medications Times are shown in SUPERVISOR FACEPIECE LINE. Scheduled Medication Order 06/18/2017 06/19/2017 06/20/2017 0.9% [...]
Post-procedure documented in this encounter Care Teams Shaving Machine Operator Relationship Specialty Start Date End Date Dani, Froylan Ray, MD PCP - General Family Practice 02/22/14 Froylan Louise MD PCP - Assigned PCP 03/13/14 08/25/18 Froylan Louise MD Assigned PCP 03/13/14 2 documented as of this encounter
--- OUTSIDE RECORDS SUMMARY | 2022-05-15 23:02 | XMS_ITS | Encounter Summary ---
:1955 Author Organization [place] Address [address] [place] [address] Care Team Providers Name Role Phone Froylan [...] Date Type Department Care Team Description 05/21/2017 [facility] Froylan Louise Ra, MD Orders [facility] [address] [place] [address] Social History Tobacco Use [...] you attend advent or Patient refused 2020 rastafarian services? Do [...] we should schedule him appropriately for that. PAPER REPORTER Telephone Encounter - Monica Patrick - 05/21/2017 9:38 AM CST Lab needs future orders placed please. Thank you Monica PAPER REPORTER documented in this encounter Plan of Treatment Upcoming Encounters Date Type Specialty Care Team Description 05/20/2022 Lab Lab documented as of this encounter Visit Diagnoses Not on filedocumented in this encounter Additional Health Concerns Infection Onset Date Last Indicated Resolved Time Rule Out COVID-19 10/31/2019 10/31/2019 11/01/2019 1:0 8 PM CDT documented as of this encounter Care Teams Casting Assistant Relationship Specialty Start Date End Date Froylan Louise MD PCP - General Family Practice 02/22/14 Froylan Louise MD PCP - Assigned PCP 03/13/14 08/25/18 So Dodd MD PCP - General Family Medicine 01/10/22 01/17/22 [address] [place] [address] Froylan Louise MD PCP - General Family Medicine 01/18/22 So Dodd MD PCP - General Family Medicine 02/21/22 [address] [place] [address] Froylan Louise MD Assigned PCP 03/13/14 2 Esthela Corea RN Personal Advocate & Liaison Family Medicine 10/16 (PAL) So Dodd MD Assigned PCP 01/05/22 [address] [place] [address] documented as of this encounter
--- OUTSIDE RECORDS SUMMARY | 2022-05-15 23:02 | XMS_ITS | Encounter Summary ---
:1955 Author Organization [place] Address [address] [place] [address] Care Team Providers Name Role Phone Froylan Louise MD Primary Care Provider Unavailable Froylan Louise MD Unavailable Unavailable Froylan Louise MD Unavailable Unavailable Reason for Visit Reason Comments Medication Refill triamcinolone (KENALOG) 0.1 % cream Encounter Details Date Type Department Care Team Description 03/10/2017 Refill [facility] Froylan Louise Ra, Medication Refill Chhaya VILLASEÑOR (triamcinolone (KENALOG) [address] [facility] 0.1 % cream) [place] [address] Social History Tobacco Use [...] you attend mormonism or Patient refused 2020 faith services? Do [...] 03/11/2017 7:52 AM CDT Prescription approved per [facility] Refill Protocol. Wendi Lindsay RN, BSN Telephone Encounter - Thais Ayala - 03/10/2017 3:51 PM CDT Pending Prescriptions: Disp Refills triamcinolone (KENALOG) 0.1 % cream [Phar*30 g 1 Sig: APPLY TOPICALLY TWICE DAILY Last Written Prescription Date: 09/23/2016 Last Fill Quantity: 30g, # refills: 1 Last Office Visit with [facility] or [facility] prescribing provider: 10/01/2016, [place] documented in this encounter Plan of Treatment Upcoming Encounters Date Type Specialty Care Team Description 05/20/2022 Lab Lab documented as of this encounter Visit Diagnoses Diagnosis Lichen planus documented in this encounter Care Teams Media Marketing Director Relationship Specialty Start Date End Date Froylan Louise MD PCP - General Family Practice 02/22/14 Froylan Louise MD PCP - Assigned PCP 03/13/14 08/25/18 Froylan Louise MD Assigned PCP 03/13/14 2 documented as of this encounter
--- OUTSIDE RECORDS SUMMARY | 2022-05-15 23:02 | XMS_ITS | Encounter Summary ---
:1955 Author Organization [place] Address [address] [place] [address] Care Team Providers Name Role Phone Froylan Louise MD Primary Care Provider Unavailable Froylan Louise MD Unavailable Unavailable Froylan Louise MD Unavailable Unavailable Encounter Details Date Type Department Care Team Description 06/08/2016 Orders Only [facility] Hyp erlipidemia LDL goal <160; [facility] Elevated fasting glucose; [address] [facility] [place] [address] Social History Tobacco Use [...] you attend orthodox or Patient refused 2020 islam services? Do [...] sults for this DIRECT LDL PANEL AM INVESTIGATOR NARCOTICS goal <160 procedure a re in the results section. HEMOGLOBIN A1C Routine 06/08/2016 10:22 Elevated fasting Resul ts for this AM INVESTIGATOR NARCOTICS glucose procedure are i n the results section. COMPREHENSIVE Routine 06/08/2016 10:22 Elevated fasting Result s for this METABOLIC PANEL AM INVESTIGATOR NARCOTICS glucose procedure ar e in the results section. CBC WITH PLATELETS Routine 06/08/2016 10:22 Postthrombotic Res ults for this AM INVESTIGATOR NARCOTICS syndrome procedure are i n the results section. documented in this encounter Results CBC with platelets (06/08/2016 10:22 AM INVESTIGATOR NARCOTICS) athologist Signature WBC 5.3 4.0 - 11.0 [place] 10e9/L [facility] RBC Count 4.69 4.4 - 5.9 [place] 10e12/L [facility] Hemoglobin 14.2 13.3 - [place] 17.7 g/dL [facility] Hematocrit 43.3 40.0 - [place] 53.0 % [facility] MCV 92 78 - 100 [facility] MCH 30.3 26.5 - [place] 33.0 pg [facility] MCHC 32.8 31.5 - [place] 36.5 g/dL [facility] RDW 14.0 10.0 - [place] 15.0 % [facility] Platelet Count 202 150 - 450 [place] 10e9/L [facility] Specimen Anatomical Collection Method Collection Time Receive d Time (Source) Location / / Volume Laterality Blood specimen 06/08/2016 10:22 6 (specimen) AM INVESTIGATOR NARCOTICS 10:23 AM INVESTIGATOR NARCOTICS Froylan Louise MD LAB - BLOOD ORDERABLES Performing Organization Address City/State/ZIP Code Phon e Number [facility] [address] [place] [address] Hemoglobin A1c (06/08/2016 10:22 AM INVESTIGATOR NARCOTICS) athologist Signature Hemoglobin A1C 5.5 4.3 - 6.0 [facility] Specimen Anatomical Collection Method Collection Time Receive d Time (Source) Location / / Volume Laterality Blood specimen 06/08/2016 10:22 6 (specimen) AM INVESTIGATOR NARCOTICS 10:23 AM INVESTIGATOR NARCOTICS Froylan Louise MD LAB - BLOOD ORDERABLES Performing Organization Address City/State/ZIP Code Phon e Number [facility] [address] [place] [address] Comprehensive metabolic panel (06/08/2016 10:22 AM INVESTIGATOR NARCOTICS) [employer] gist Method Time Signature Sodium 142 133 - 144 [place] mmol/L [facility] Potassium 4.1 3.4 - 5.3 [place] mmol/L [facility] Chloride 106 94 - 109 [facility] mmol/L [facility] Carbon Dioxide 31 20 - 32 [place] mmol/L [facility] Anion Gap 5 3 - 14 [place] mmol/L [facility] Glucose 97 70 - 99 [place] mg/dL [facility] Urea Nitrogen 14 7 - 30 [place] mg/dL [facility] Creatinine 0.84 0.66 - [place] 1.25 CLINICS mg/dL [facility] GFR Estimate >90 >60 [place] Non GFR Calc mL/min/1. CLINICS 7m2 [place] GFR Estimate If >90 >60 [place] Black GFR Calc mL/min/1. CLIN ICS 7m2 [facility] Calcium 8.9 8.5 - [place] 10.1 CLINICS mg/dL [facility] Bilirubin Total 0.9 0.2 - 1.3 [place] mg/dL [facility] Albumin 3.4 3.4 - 5.0 [place] g/dL [facility] Protein Total 6.9 6.8 - 8.8 [place] g/dL [facility] Alkaline 94 40 - 150 [place] Phosphatase U/L [facility] ALT 24 0 - 70 [place] U/L [facility] AST 16 0 - 45 [facility] U/L [facility] Specimen Anatomical Collection Method Collection Time Receive d Time (Source) Location / / Volume Laterality Blood specimen 06/08/2016 10:22 6 (specimen) AM INVESTIGATOR NARCOTICS 10:23 AM INVESTIGATOR NARCOTICS Froylan Louise MD LAB - BLOOD ORDERABLES Performing Organization Address City/State/ZIP Code Phon e Number [facility] [address] [place] [address] Lipid panel reflex to direct LDL (06/08/2016 10:22 AM INVESTIGATOR NARCOTICS) [facility] Method Time Signature Cholesterol 156 <200 [place] mg/dL [facility] Triglycerides 93 <150 [place] mg/dL [facility] HDL Cholesterol 45 >39 mg/dL [facility] LDL Cholesterol 92 <100 [place] Calculated mg/dL [facility] Comment: Desirable: <100 mg/dl Non HDL Cholesterol 111 <130 mg/dL [facility] Specimen Anatomical Collection Method Collection Time Receive d Time (Source) Location / / Volume Laterality Blood specimen 06/08/2016 10:22 6 (specimen) AM INVESTIGATOR NARCOTICS 10:23 AM INVESTIGATOR NARCOTICS Froylan Louise MD LAB - BLOOD ORDERABLES Performing Organization Address City/[facility]/ZIP Code Phon e Number [facility] [address], [place] [address] documented in this encounter Visit Diagnoses Diagnosis Hyperlipidemia LDL goal <160 Other and unspecified hyperlipidemia Elevated fasting glucose Impaired fasting glucose 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
--- OUTSIDE RECORDS SUMMARY | 2022-05-15 23:02 | XMS_ITS | Encounter Summary ---
:1955 Author Organization [place] Address [facility] [place] [address] Care Team Providers Name Role Phone Froylan Louise MD Primary Care Provider Unavailable Froylan Louise MD Unavailable Unavailable Froylan Louise MD Unavailable Unavailable Reason for Visit Auth/Cert Specialty Diagnoses / Procedures Referred By Contact Refer red To Contact Gastroenterology Diagnoses Ulcerative Colitis Rh Endoscopy Procedures POUCHOSCOPY [address] [place] [address] Phone: Fax: Referral ID Status Reason Start Date Expiration Date Visits Requ ested Visits Authorized [id number] 1 1 Encounter Details Date Type Department Care Team Description 06/20/2017 Surgery [facility] Endoscopy Chase Rutherford MD POUCHOSCOPY [facility] [address] [place] [phone] [place] [address] (Wo rk) Surgery Details Date/Time Status Location OR Service Patient Class Case Case Trauma Class Type Case? 06/20/17 Posted GI GI C [place] 10:25 AM Panel 1 Procedure [facility] Anes Op Region Wound Class Commen ts POUCHOSCOPY N/A Conscious Sedation Rectum II-Clean POUCH OSCOPY Contaminated Surgeon Surgeon Role Service Panel Chase Suazo MD Primary [place] 1 Special Needs Needs flex Sig scope [...] you attend denominational or Patient refused 2020 yarsani services? Do [...] Comments Blood Pressure 113/82 06/20/2017 11:30 AM CLINICAL LABORATORY MANAGER Pulse - - Temperature - - Respiratory Rate 16 06/20/2017 11:30 AM CLINICAL LABORATORY MANAGER Oxygen Saturation 96% 06/20/2017 11:30 AM CLINICAL LABORATORY MANAGER Inhaled Oxygen Concentration - - Weight 106.1 kg (234 lb) 06/20/2017 10:29 AM CLINICAL LABORATORY MANAGER Height 179.1 cm (5' 10.5) 06/20/2017 10:29 AM CLINICAL LABORATORY MANAGER Body Mass Index 33.1 06/20/2017 10:29 AM CLINICAL LABORATORY MANAGER documented in this encounter Discharge Instructions [...] Adults Signature: Relationship to Patient: Nurses Signature: ICAL LABORATORY MANAGER documented in this encounter Medications at [...] AM Re sults for this GI EXAM CLINICAL LABORATORY MANAGER procedure are i n the results section. ENDOSCOPY, POUCH, 06/20/2017 10:33 AM Ulcerative Colit is DIAGNOSTIC CLINICAL LABORATORY MANAGER Special Needs Needs flex Sig scope documented in this encounter Results PROVGI - PROVATION GI EXAM (06/20/2017 10:40 AM CLINICAL LABORATORY MANAGER) [facility] gist Method Time Signature PROVGI [facility] RADIO LOGY RESULTS Patient Name: Virgil Christine ? Procedure Date: 06/20/2017 10:40 AM ? Accou nt Number: [id number] Date of : 1955 ?Admit Type: Out [...] The ?Olympus Peds Colonoscope Model #PCF-H190L, ?Endora#138, SN#[id number] was introduced through the ?ileoanal anastomosis via [...] Procedure Code(s): ? --- Professional --- ? 49427, Endoscopic evaluation of s mall intestinal pouch (eg, Kock pouch, ? ileal reservoir [S or J]); diagnostic, including kashmir ection of ? specimen(s) by brushing or washin g, when performed (separate procedure) Diagnosis Code(s): ? --- Professional --- ? Z90.49, Acquired absence of other specified parts o f digestive tract CPT copyright 2016 [employer]. All rights reserved. The codes documented in this report are prelimin dillon and upon manager protein review may be revised to meet current compliance requirements. Chase Suazo MD 06/20/2017 10:58:50 AM I was physically present for the entire viewing portion of t he exam. Chase Suazo MD Number of Addenda: 0 Note Initiated On: 06/20/2017 10:40 AM MRN: ?[id number] Procedure Date: ? 06/20/2017 10:40:57 AM Total Procedure Duration: 0 hours 7 minutes 0 seconds Estimated Blood Loss: ? Scope In: 10:45:47 AM Scope Out: 10:52:47 AM Specimen (Source) Anatomical Collection Method Collection Time Re ceived Time Location / / Volume Laterality 06/20/2017 10:40 AM CLINICAL LABORATORY MANAGER Froylan Louise MD PROCEDURES Performing Organization [...] (PF) (SUBLIMAZE) injection Given 06/20/2017 10:46 AM CLINICAL LABORATORY MANAGER 100 mcg PRN, Administer over 3-5 Minutes, Starting on Fri06/20/17 at 1041, Intra-procedure Given 06/20/2017 10:41 AM CLINICAL LABORATORY MANAGER 100 mcg midazolam (VERSED) injection Given 06/20/2017 10:46 AM CLINICAL LABORATORY MANAGER 1 mg Administer over 2 Minutes, PRN, Starting on Fri06/20/17 at 1041, Intra-procedure Given 06/20/2017 10:41 AM CLINICAL LABORATORY MANAGER 2 mg ondansetron (ZOFRAN) injection 4 [...] Recently Administered Medications Times are shown in CLINICAL LABORATORY MANAGER. Scheduled Medication Order 06/18/2017 06/19/2017 06/20/2017 [...]
Post-procedure documented in this encounter Care Teams Stuntman Relationship Specialty Start Date End Date Froylan Louise MD PCP - General Family Practice 02/22/14 Froylan Louise MD PCP - Assigned PCP 03/13/14 08/25/18 Froylan Louise MD Assigned PCP 03/13/14 2 documented as of this encounter
--- OUTSIDE RECORDS SUMMARY | 2022-05-15 23:02 | XMS_ITS | Encounter Summary ---
:1955 Author Organization [facility] Address [address] [place] [address] Care Team Providers Name Role Phone Froylan Louise MD Primary Care Provider Unavailable Froylan Louise MD Unavailable Unavailable Froylan Louise MD Unavailable Unavailable Reason for Visit Reason Onset Date Comments Orders 05/26/2017 Encounter Details Date Type Department Care Team Description 05/26/2017 Telephone [facility] Froylan Louise Ra, MD Orders [facility] [address] [place] [address] Social History Tobacco Use [...] you attend hindu or Patient refused 2020 bahai services? Do [...] No urine was collected. Thank you, Monica ITURE UPHOLSTERER APPRENTICE documented in this encounter Plan of Treatment Upcoming Encounters Date Type Specialty Care Team Description 05/20/2022 Lab Lab documented as of this encounter Results CBC with platelets (05/25/2017 8:10 AM FURNITURE UPHOLSTERER APPRENTICE) athologist Signature WBC 7.5 4.0 - 11.0 05/26/2017 [place] 10e9/L 11:23 AM [facility] RBC Count 4.86 4.4 - 5.9 05/26/2017 [place] 10e12/L 11:23 AM [facility] Hemoglobin 14.6 13.3 - 05/26/2017 [place] 17.7 g/dL 11:23 AM [facility] Hematocrit 45.4 40.0 - 05/26/2017 [place] 53.0 % 11:23 AM [facility] MCV 93 78 - 100 05/26/2017 [place] fl 11:23 AM [facility] MCH 30.0 26.5 - 05/26/2017 [place] 33.0 pg 11:23 AM [facility] MCHC 32.2 31.5 - 05/26/2017 [place] 36.5 g/dL 11:23 AM [facility] RDW 13.7 10.0 - 05/26/2017 [place] 15.0 % 11:23 AM [facility] Platelet Count 213 150 - 450 05/26/2017 [place] 10e9/L 11:23 AM [facility] Specimen Anatomical Collection Method Collection Time Receive d Time (Source) Location / / Volume Laterality Blood specimen 05/25/2017 8:10 AM 017 (specimen) FURNITURE UPHOLSTERER APPRENTICE 10:54 AM FURNITURE UPHOLSTERER APPRENTICE Froylan Louise MD LAB - BLOOD ORDERABLES Performing Organization Address City/State/ZIP Code Phon e Number [facility] [address] [place] [address] Comprehensive metabolic panel (05/25/2017 8:10 AM FURNITURE UPHOLSTERER APPRENTICE) athologist Signature Sodium 140 133 - 144 05/26/2017 [place] mmol/L 4:[address] [facility] Potassium 4.5 3.4 - 5.3 05/26/2017 [facility] mmol/L 4:[address] [facility] Chloride 107 94 - 109 05/26/2017 [facility] mmol/L 4:[address] [facility] Carbon Dioxide 24 20 - 32 05/26/2017 [facility] mmol/L 4:[address] [facility] Anion Gap 9 3 - 14 05/26/2017 [facility] mmol/L 4:[address] [facility] Glucose 97 70 - 99 05/26/2017 [place] mg/dL 4:[address] [facility] Urea Nitrogen 16 7 - 30 05/26/2017 [facility] mg/dL 4:[address] [facility] Creatinine 0.91 0.66 - 05/26/2017 [place] 1.25 mg/dL 4:[address] [facility] GFR Estimate 86 >60 05/26/2017 [place] mL/min/1.7 4:[address] Comment: Non GFR Calc GFR Estimate If >90 >60 mL/min/1.7m2 05/26/2017 4:44 P M [facility] Black [facility] Comment: GFR Calc Calcium 9.0 8.5 - 10.1 05/26/2017 4:44 PM [facility] mg/dL [facility] Bilirubin Total 1.2 0.2 - 1.3 mg/dL 05/26/2017 4:44 PM [facility] Albumin 3.4 3.4 - 5.0 g/dL 05/26/2017 4:44 PM [facility] Protein Total 7.2 6.8 - 8.8 g/dL 05/26/2017 4:44 PM [facility] [place] [facility] Alkaline Phosphatase 91 40 - 150 U/L 05/26/2017 4:44 PM [facility] ALT 27 0 - 70 U/L 05/26/2017 4:44 PM [place] [facility] AST 17 0 - 45 U/L 05/26/2017 4:44 PM [place] [facility] FURNITURE UPHOLSTERER APPRENTICE [facility] Specimen Anatomical Collection Method Collection Time Receive d Time (Source) Location / / Volume Laterality Blood specimen 05/25/2017 8:10 AM 017 (specimen) FURNITURE UPHOLSTERER APPRENTICE 10:54 AM FURNITURE UPHOLSTERER APPRENTICE Froylan Louise MD LAB - BLOOD ORDERABLES Performing Organization Address City/[facility]/ZIP Code Phon e Number [facility] [address] [place] [address] Hemoglobin A1c (05/25/2017 8:10 AM FURNITURE UPHOLSTERER APPRENTICE) athologist Signature Hemoglobin A1C 5.8 4.3 - 6.0 05/26/2017 [facility] % 11:12 AM [facility] Specimen Anatomical Collection Method Collection Time Receive d Time (Source) Location / / Volume Laterality Blood specimen 05/25/2017 8:10 AM 017 (specimen) FURNITURE UPHOLSTERER APPRENTICE 10:54 AM FURNITURE UPHOLSTERER APPRENTICE Froylan Louise MD LAB - BLOOD ORDERABLES Performing Organization Address City/[facility]/ZIP Code Phon e Number [facility] [address] [place] [address] Lipid panel reflex to direct LDL Fasting (05/25/2017 8:10 AM FURNITURE UPHOLSTERER APPRENTICE) [facility] Method Time Signature Cholesterol 166 <200 05/26/2017 [place] mg/dL 4:44 PM FURNITURE UPHOLSTERER APPRENTICE [facility] Triglycerides 109 <150 05/26/2017 [place] mg/dL 4:[address] [facility] HDL Cholesterol 52 >39 mg/dL 05/26/2017 [place] 4:[address] [facility] LDL Cholesterol 92 <100 05/26/2017 [place] Calculated mg/dL 4:[address] [facility] Comment: Desirable: <100 mg/dl Non HDL Cholesterol 114 <130 mg/dL 05/26/2017 4:44 PM FURNITURE UPHOLSTERER APPRENTICE [facility] Specimen Anatomical Collection Method Collection Time Receive d Time (Source) Location / / Volume Laterality Blood specimen 05/25/2017 8:10 AM 017 (specimen) FURNITURE UPHOLSTERER APPRENTICE 10:54 AM FURNITURE UPHOLSTERER APPRENTICE Froylan Loiuse MD LAB - BLOOD ORDERABLES Performing Organization Address City/State/ZIP Code Phon e Number [facility] [address] [place] [address] documented in this encounter Visit Diagnoses Diagnosis Other ulcerative colitis without complic ation (H) - Primary Elevated fasting glucose Impaired fasting glucose Hyperlipidemia LDL goal <160 Other and unspecified hyperlipidemia documented in this encounter Care Teams Aerospace Mechanic Relationship Specialty Start Date End Date Froylan Louise MD PCP - General Family Practice 02/22/14 Froylan Louise MD PCP - Assigned PCP 03/13/14 08/25/18 Froylan Louise MD Assigned PCP 03/13/14 2 documented as of this encounter
--- OUTSIDE RECORDS SUMMARY | 2022-05-15 23:02 | XMS_ITS | Encounter Summary ---
:1955 Author Organization [place] Address [facility] [place] [address] Care Team Providers Name Role Phone Froylan Louise MD Primary Care Provider Unavailable Froylan Louise MD Unavailable Unavailable Froylan Louise MD Unavailable Unavailable Reason for Visit Reason Comments Recheck Medication med refills needed Mass left side buttox . Encounter Details Date Type Department Care Team Description 06/13/2017 Office Visit [facility] Froylan Louise Routine g eneral medical examination at a health care facility (Primary Dx); Clinic Chhaya Dubose MD Mild persistent asthma, unco mplicated; [address] Mild persistent asthma witho ut complication; [place], [place] Lichen planus; [address] Insomnia, unspecified type; [phone] Postthrombotic syndrome; Peripheral sebastian a; Erectile dysfun [...] you attend hoahaoism or Patient refused 2020 yazdanism services? Do you belong to any clubs or Yes 05/25/2021 organizations such as hoahaoism groups, unions, fraFidusNet or athletic groups, or school groups? How [...] Comments Blood Pressure 148/90 06/13/2017 3:04 PM PRODUCT MARKETING DIRECTOR Pulse 98 06/13/2017 3:04 PM PRODUCT MARKETING DIRECTOR Temperature 36.7 ??C (98 ??F) 06/13/2017 3:04 PM PRODUCT MARKETING DIRECTOR Respiratory Rate - - Oxygen Saturation 98% 06/13/2017 3:04 PM PRODUCT MARKETING DIRECTOR Inhaled Oxygen Concentration - - Weight 106.1 kg (234 lb) 06/13/2017 3:04 PM PRODUCT MARKETING DIRECTOR Height 179.1 cm (5' 10.5) 06/13/2017 3:04 PM PRODUCT MARKETING DIRECTOR Body Mass Index 33.1 06/13/2017 3:04 PM PRODUCT MARKETING DIRECTOR documented in this encounter Progress Notes [...] positive ??? Mild persistent asthma ??? Health Long-Term ? ? Hyperlipidemia LDL goal <160 ??? [...] by Sofia Altman, a trained medical office worker. The creation of this document is based on the provider's statements to the medical office worker. Sofia Altman 3:34 PM June 13, 2017 [...] this document, created by the medical office worker for me, accurately reflects the services I personally performed and the decisions made by me. I have reviewed and approved this document for accuracy prior to leaving the patient care area. June 13, 2017 4:17 PM Froylan Louise MD [facility] Answers for HPI/ROS submitted by the patient on 06/13/2017 PHQ-2 Score: 0 UCT MARKETING DIRECTOR documented in this encounter Nursing Notes [...] kg). Medication Reconciliation: complete Marco Pak CMA UCT MARKETING DIRECTOR documented in this encounter Plan of [...] hypertension documented in this encounter Care Teams Energy Specialist Relationship Specialty Start Date End Date Froylan Louise MD PCP - General Family Practice 02/22/14 Froylan Louise MD PCP - Assigned PCP 03/13/14 08/25/18 Froylan Louise MD Assigned PCP 03/13/14 2 documented as of this encounter
--- OUTSIDE RECORDS SUMMARY | 2022-05-15 23:02 | XMS_ITS | Encounter Summary ---
:1955 Author Organization [place] Address [address] [place] [address] Care Team Providers Name Role Phone Froylan Louise MD Primary Care Provider Unavailable Froylan Louise MD Unavailable Unavailable Froylan Louise MD Unavailable Unavailable Reason for Visit Reason Comments Medication Refill ATROVENT Encounter Details Date Type Department Care Team Description 10/04/2016 Refill [facility] Froylan Louise Ra, Medication Refill Chhaya VILLASEÑOR (ATROVENT) [address] [place] [address] Social History Tobacco [...] [facility], [facility] or [facility] prescribing provider: 01/24/16 Date of Last [...] asthma documented in this encounter Care Teams Quality Assurance Lead Relationship Specialty Start Date End Date Froylan Louise MD PCP - General Family Practice 02/22/14 Froylan Louise MD PCP - Assigned PCP 03/13/14 08/25/18 Froylan Louise MD Assigned PCP 03/13/14 2 documented as of this encounter
--- OUTSIDE RECORDS SUMMARY | 2022-05-15 23:03 | XMS_ITS | Encounter Summary ---
:1955 Author Organization [place] Address [address] [place] [address] Care Team Providers Name Role Phone Froylan Louise MD Primary Care Provider Unavailable Froylan Louise MD Unavailable Unavailable Froylan Louise MD Unavailable Unavailable Reason for Visit Reason Comments Facial Laceration Encounter Details Date Type Department Care Team Description 11/14/2015 [facility] Kevon Stubbs laceration, [facility] Emergency Dep noble Smith MD initial encounter [address] [facility] [place] [address] [address] [phone] [address] [place] [address] (Wo rk) Social History Tobacco Use Types [...] you attend pentecostalism or Patient refused 2020 orthodoxy services? Do [...] contain Tylenol?? (acetaminophen), including Vicodin??, Tylenol #3??, Cantrall??, Lortab??, and Percocet??. You should not take [...] Sleep apnea Ulcerative colitis Past Surgical History: Fishtail filter Resection abdominal perineal Arthroplasty knee unicompartment [...] 15, responds appropriately to commands, face symmetric, engineering group leader normal, strength and sensation normal in all [...] Disposition: Discharged to home Mukund Moreno 11/14/2015 [facility] EM[facility] IMukund am serving [...] Active and Recently Administered Medications Care Teams Quality Tester Relationship Specialty Start Date End Date Froylan Louise MD PCP - General Family Practice 02/22/14 Froylan Louise MD PCP - Assigned PCP 03/13/14 08/25/18 Froylan Louise MD Assigned PCP 03/13/14 2 documented as of this encounter
--- OUTSIDE RECORDS SUMMARY | 2022-05-15 23:03 | XMS_ITS | Encounter Summary ---
:1955 Author Organization [place] Address [facility] [place] [address] Care Team Providers Name Role Phone Froylan Louise MD Primary Care Provider Unavailable Froylan Louise MD Unavailable Unavailable Froylan Louise MD Unavailable Unavailable Reason for Referral Consultation - Closed Specialty Diagnoses / Procedures Referred By Contact Refer red To Contact Diagnoses Venous stasis ulcer, right [place] [address] [place] [address] Referral ID Status Reason Start Date Expiration Date Visits Requ ested Visits Authorized [id number] Closed 01/24/2016 01/23/2017 1 1 Reason for Visit Reason Comments Wound Check Encounter Details Date Type Department Care Team Description 01/24/2016 Office Visit [facility] Froylan Louise Venous st asis ulcer, right (H) (Primary Dx); Clinic Chhaya Dubose MD Postthrombotic syndrome; [address] [facility] Varicose vein of leg; [place], [place] [address] Social History Tobacco Use Types Packs/Day Years [...] you attend baptist or Patient refused 2020 yazdanism services? Do [...] History Procedure Laterality Date ??? Colostomy ??? [place] filter ??? Resection abdominal perineal ??? 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
--- OUTSIDE RECORDS SUMMARY | 2022-05-15 23:03 | XMS_ITS | Encounter Summary ---
:1955 Author Organization [place] Address [address] [place] [address] Care Team Providers Name Role Phone Froylan Louise MD Primary Care Provider Unavailable Froylan Louise MD Unavailable Unavailable Froylan Louise MD Unavailable Unavailable Encounter Details Date Type Department Care Team Description 11/20/2015 Telephone [facility] Jackeline Soler, CINDY [address] [place] [address] Social History Tobacco Use Types Packs/Day [...] you attend gnosticism or Patient refused 2020 scientologist services? Do [...] filedocumented in this encounter Care Teams Manager Dish Relationship Specialty Start Date End Date Froylan Louise MD PCP - General Family Practice 02/22/14 Froylan Louise MD PCP - Assigned PCP 03/13/14 08/25/18 Froylan Louise MD Assigned PCP 03/13/14 2 documented as of this encounter
--- OUTSIDE RECORDS SUMMARY | 2022-05-15 23:03 | XMS_ITS | Encounter Summary ---
:1955 Author Organization [place] Address [address] [place] [address] Care Team Providers Name Role Phone Froylan Louise MD Primary Care Provider Unavailable Froylan Louise MD Unavailable Unavailable Froylan Louise MD Unavailable Unavailable Reason for Visit Reason Onset Date Comments Refill Request 03/09/2015 albuterol Encounter Details Date Type Department Care Team Description 03/09/2015 Refill [facility] Froylan Louise Ra, Refill Request Chhaya VILLASEÑOR (albuterol) [address] [place] [address] Social History Tobacco Use [...] you attend bahai or Patient refused 2020 oriental orthodox services? [...] be done on phone. Sent link by [employer] but pt not checking Please advise on refill Wendi Lindsay RN, BSN Telephone Encounter - Wendi Lindsay RN - 03/09/2015 9:43 AM CDT Wis[facility]dm with ACT link sent Wendi Linsday RN, BSN Telephone Encounter - Carlos Alberto Black - 03/09/2015 7:57 AM CDT Pending Prescriptions: Disp Refills albuterol (ALBUTEROL) 108 (90 BASE) MCG/A*1 Inha*11 Sig: Inhale 1-2 puffs into the lungs every 4 hours as needed Last Written Prescription Date: 03/04/2014 Last Fill Quantity: 1, # refills: 11 Last Office Visit with [facility] primary care provider): 05/27/2014 Future [...] Primary documented in this encounter Care Teams Metallic Yarn Slitting Machine Operator Relationship Specialty Start Date End Date Froylan Louise MD PCP - General Family Practice 02/22/14 Froylan Louise MD PCP - Assigned PCP 03/13/14 08/25/18 Froylan Louise MD Assigned PCP 03/13/14 2 documented as of this encounter
--- OUTSIDE RECORDS SUMMARY | 2022-05-15 23:03 | XMS_ITS | Encounter Summary ---
:1955 Author Organization [place] Address [address] [place] [address] Care Team Providers Name Role Phone Froylan Louise MD Primary Care Provider Unavailable Froylan Louise MD Unavailable Unavailable Froylan Louise MD Unavailable Unavailable Reason for Visit Reason Onset Date Comments Refill Request 05/07/2016 Encounter Details Date Type Department Care Team Description 05/06/2016 Refill [facility] Froylan Louise Ra, MD Refill Request [address] [address] Social History Tobacco Use [...] you attend faith or Patient refused 2020 episcopal services? Do [...] CST Atrovent and albuterol Prescription approved per [facility] Refill Protocol.- Pt is not using the combivent I just didn't like that one so I went back to what I know works Esthela Corea RN Last Written Prescription Date: 03/08/16 Last Fill Quantity: 1, # refills: 3 Last Office Visit with [facility], [facility] or [facility] prescribing provider: 01/24/16 Future Office Visit: [...] found for this or any previous visit. HAND documented in this encounter Plan of Treatment Upcoming Encounters Date Type Specialty Care Team Description 05/20/2022 Lab Lab documented as of this encounter Visit Diagnoses Diagnosis Mild persistent asthma without complicat ion - Primary Unspecified asthma documented in this encounter Care Teams Service Officer Relationship Specialty Start Date End Date Froylan Louise MD PCP - General Family Practice 02/22/14 Froylan Louise MD PCP - Assigned PCP 03/13/14 08/25/18 Froylan Louise MD Assigned PCP 03/13/14 2 documented as of this encounter
--- OUTSIDE RECORDS SUMMARY | 2022-05-15 23:03 | XMS_ITS | Encounter Summary ---
:1955 Author Organization [place] Address [address] [place] [address] Care Team Providers Name Role Phone Froylan Louise MD Primary Care Provider Unavailable Froylan Louise MD Unavailable Unavailable Froylan Louise MD Unavailable Unavailable Reason for Visit Reason Onset Date Comments Refill Request 03/17/2015 ipratropium (ATROVEN T HFA) 17 MCG/ACT inhaler Encounter Details Date Type Department Care Team Description [facility] Ra, Refill Request Chhaya VILLASEÑOR (ipratropium (ATROVENT [address] HFA) 17 MCG/ACT inhaler) [place] [address] Social History Tobacco Use [...] you attend shinto or Patient refused 2020 zoroastrian services? Do [...] 03/17/2015 3:19 PM CDT Prescription approved per [facility] Refill Protocol. Wendi Lindsay RN, BSN Telephone Encounter - Carlos Alberto Black - 03/17/2015 3:06 PM CDT Pending Prescriptions: Disp Refills ipratropium (ATROVENT HFA) 17 MCG/ACT inh*1 Inha*11 Sig: Inhale 2 puffs into the lungs 4 times daily Last Written Prescription Date: 03/04/2014 Last Fill Quantity: 1, # refills: 11 [address] Office Visit with [facility] primary care provider): 05/27/2014 Future Office Visit: [...] asthma documented in this encounter Care Teams Weaver [place] Relationship Specialty Start Date End Date Froylan Louise MD PCP - General Family Practice 02/22/14 Froylan Louise MD PCP - Assigned PCP 03/13/14 08/25/18 Froylan Louise MD Assigned PCP 03/13/14 2 documented as of this encounter
--- OUTSIDE RECORDS SUMMARY | 2022-05-15 23:03 | XMS_ITS | Encounter Summary ---
:1955 Author Organization [facility] Address [address] [place] [address] Care Team Providers Name Role Phone Froylan Louise MD Primary Care Provider Unavailable Froylan Louise MD Unavailable Unavailable Froylan Louise MD Unavailable Unavailable Reason for Visit Reason Onset Date Comments Refill Request 08/31/2015 viagra Encounter Details Date Type Department Care Team Description 08/31/2015 Telephone [facility] Froylan Louise Refi ll Request (viagra) [facility] Chhaya VILLASEÑOR [address] [place] [address] Social History Tobacco Use [...] you attend scientologist or Patient refused 2020 jewish services? Do [...] Lindsay RN - 09/05/2015 1:07 PM CDT [facility] Telephone Encounter - Froylan [...] has. Please advise Wendi Lindsay RN, BSN [employer] DEVELOPER documented in this encounter Plan of Treatment Upcoming Encounters Date Type Specialty Care Team Description 05/20/2022 Lab Lab documented as of this encounter Visit Diagnoses Not on filedocumented in this encounter Care Teams Geography Professor Relationship Specialty Start Date End Date Froylan Louise MD PCP - General Family Practice 02/22/14 Froylan Louise MD PCP - Assigned PCP 03/13/14 08/25/18 Froylan Louise MD Assigned PCP 03/13/14 2 documented as of this encounter
--- OUTSIDE RECORDS SUMMARY | 2022-05-15 23:03 | XMS_ITS | Encounter Summary ---
:1955 Author Organization [place] Address [facility] [place] [address] Care Team Providers Name Role Phone Froylan Louise MD Primary Care Provider Unavailable Froylan Louise MD Unavailable Unavailable Froylan Louise MD Unavailable Unavailable Reason for Visit Reason Comments Physical different pain medcations Encounter Details Date Type Department Care Team Description 05/04/2015 Office Visit [facility] Froylan Louise g eneral medical examination at a health care facility (Primary Dx); Clinic Chhaya Dubose MD H/O ulcerative colitis; [address] [facility] Mild persistent asthma, unco mplicated; [place], [place] Mild persisten t asthma without complication; [phone] Hyperlipidemia LDL goal <160 ; [phone] Postthrombotic syndrome; Bilateral low b ack pain [...] attend oriental orthodox or Patient refused 2020 alevism services? Do [...] Comments Blood Pressure 124/80 05/04/2015 9:04 AM BUTTON SEWER HAND Pulse 78 05/04/2015 9:04 AM BUTTON SEWER HAND Temperature 36.7 ??C (98.1 ??F) 05/04/2015 9:04 AM BUTTON SEWER HAND Respiratory Rate - - Oxygen Saturation 98% 05/04/2015 9:04 AM BUTTON SEWER HAND Inhaled Oxygen Concentration - - Weight 102.1 kg (225 lb) 05/04/2015 9:04 AM BUTTON SEWER HAND Height 182.9 cm (6') 05/04/2015 9:04 AM BUTTON SEWER HAND Body Mass Index 30.52 05/04/2015 9:04 AM BUTTON SEWER HAND documented in this encounter Progress Notes Froylan [...] Avina and colleagues,with an educational cisco from [employer].) 05/04/2015 05/27/2014 Q1: Little interest or pleasure [...] Yes All Histories reviewed and updated in [employer]. Past Medical History Diagnosis Date ??? Unspecified [...] History Procedure Laterality Date ??? Colostomy ??? [place] filter ??? Resection abdominal perineal ??? Arthroplasty [...] list, Allergies, and Medical/Social/Surgical histories reviewed in [facility] andupdated as appropriate. OBJECTIVE: BP 124/80 mmHg [...] Americans, 2010 USDA's My[employer]ate Froylan Louise MD [facility] ON SEWER HAND Froylan Louise MD - 05/04/2015 9:06 AM [...] kg). BP completed using cuff size: regular ON SEWER HAND documented in this encounter Nursing Notes Berto [...] completed using cuff size: lorne Daniel CMA ON SEWER HAND documented in this encounter Plan of Treatment Upcoming Encounters Date Type Specialty Care Team Description 05/20/2022 Lab Lab documented as of this encounter Procedures Procedure Name Priority Date/Time Associated Diagnosis Comme nts ASTHMA ACTION PLAN Routine 05/11/2015 7:44 AM BUTTON SEWER HAND TSH WITH FREE T4 Routine 05/04/2015 9:39 Postthrombotic Result s for this REFLEX AM BUTTON SEWER HAND syndrome procedure are i n the results section. INR Routine 05/04/2015 9:39 Postthrombotic Results fo r this AM BUTTON SEWER HAND syndrome procedure are i n the results section. LIPID REFLEX TO Routine 05/04/2015 9:39 Routine general Result s for this DIRECT LDL PANEL AM BUTTON SEWER HAND medical examination at [facility] are in a health care facility the r esults section. COMPREHENSIVE Routine 05/04/2015 9:39 Postthrombotic Results f or this METABOLIC PANEL AM BUTTON SEWER HAND syndrome procedure ar e in the results section. CBC WITH PLATELETS Routine 05/04/2015 9:39 Postthrombotic Resu lts for this AM BUTTON SEWER HAND syndrome procedure are i n the results section. documented in this encounter Results Lipid panel reflex to direct LDL (05/04/2015 9:39 AM BUTTON SEWER HAND) athologist Signature Cholesterol 170 <200 mg/dL [facility] Comment: LDL Cholesterol is the primary guide to therapy. The NCEP recommends further evaluation of: patients with cholesterol greater than 200 mg/dL if additional risk facto rs are present, cholesterol greater than 240 mg/dL, triglycerides greater than 1 50 mg/dL, or HDL less than 40 mg/dL. Triglycerides 93 0 - 150 mg/dL [place] [facility] HDL Cholesterol 51 >40 mg/dL [place] [facility] LDL Cholesterol Calculated 100 0 - 129 mg/dL [facility] Comment: LDL Cholesterol is the primary guide to therapy: LDL-cholesterol goal in high risk patients is <100 mg/dL and in very high risk patients is <70 mg/dL. VLDL-Cholesterol 19 0 - 30 mg/dL [place] Chast[facility] Cholesterol/HDL Ratio 3.3 0.0 - 5.0 [facility] Specimen Anatomical Collection Method Collection Time Receive d Time (Source) Location / / Volume Laterality Blood specimen 05/04/2015 9:39 AM 015 9:44 (specimen) BUTTON SEWER HAND AM BUTTON SEWER HAND Froylan Louise MD LAB - BLOOD ORDERABLES Performing Organization Address City/[facility]/ZIP Code Phon e Number [facility] [address] [place] [address] TSH with free T4 reflex (05/04/2015 9:39 AM BUTTON SEWER HAND) athologist Signature TSH 1.67 0.40 - 4.00 [facility] mU/L [facility] Specimen Anatomical Collection Method Collection Time Receive d Time (Source) Location / / Volume Laterality Blood specimen 05/04/2015 9:39 AM 015 9:44 (specimen) BUTTON SEWER HAND AM BUTTON SEWER HAND Froylan Louise MD LAB - BLOOD ORDERABLES Performing Organization Address City/[facility]/ZIP Code Phon e Number [facility] [address] [place] [address] (ABNORMAL) Comprehensive metabolic panel (05/04/2015 9:39 AM BUTTON SEWER HAND) [facility] Method Time Signature Sodium 137 133 - 144 [place] mmol/L [facility] Potassium 4.1 3.4 - 5.3 [place] mmol/L [facility] Chloride 104 94 - 109 [place] mmol/L [facility] Carbon Dioxide 27 20 - 32 [place] mmol/L [facility] Anion Gap 6 3 - 14 [place] mmol/L [facility] Glucose 120 (H) 70 - 99 [place] mg/dL [facility] Urea Nitrogen 18 7 - 30 [place] mg/dL [facility] Creatinine 0.79 0.66 - [place] 1.25 CLINICS mg/dL [facility] GFR Estimate >90 >60 [place] Non GFR Calc mL/min/1. CLINICS [address] [facility] GFR Estimate If >90 >60 [place] Black GFR Calc mL/min/1. CLIN ICS [address] [facility] Calcium 9.2 8.5 - [place] 10.1 CLINICS mg/dL [facility] Bilirubin Total 1.0 0.2 - 1.3 [place] mg/dL [facility] Albumin 3.7 3.4 - 5.0 [place] g/dL [facility] Protein Total 7.4 6.8 - 8.8 [place] g/dL [facility] Alkaline 92 40 - 150 [place] Phosphatase U/L [facility] ALT 32 0 - 70 [place] U/L [facility] AST 13 0 - 45 [place] U/L [facility] Specimen Anatomical Collection Method Collection Time Receive d Time (Source) Location / / Volume Laterality Blood specimen 05/04/2015 9:39 AM 015 9:44 (specimen) BUTTON SEWER HAND AM BUTTON SEWER HAND Froylan Louise MD LAB - BLOOD ORDERABLES Performing Organization Address City/State/ZIP Code Phon e Number [facility] [address] [place] [address] INR (05/04/2015 9:39 AM BUTTON SEWER HAND) athologist Signature INR 1.03 0.86 - 1.14 [facility] Specimen Anatomical Collection Method Collection Time Receive d Time (Source) Location / / Volume Laterality Blood specimen 05/04/2015 9:39 AM 015 9:44 (specimen) BUTTON SEWER HAND AM BUTTON SEWER HAND Froylan Louise MD LAB - BLOOD ORDERABLES Performing Organization Address City/State/ZIP Code Phon e Number [facility] [address] [place] [address] [facility] CBC with platelets (05/04/2015 9:39 AM BUTTON SEWER HAND) athologist Signature WBC 5.9 4.0 - 11.0 [place] 10e9/L [facility] RBC Count 4.75 4.4 - 5.9 [place] 10e12/L [facility] Hemoglobin 14.3 13.3 - [place] 17.7 g/dL [facility] Hematocrit 43.0 40.0 - [place] 53.0 % [facility] MCV 91 78 - 100 [place] fl [facility] MCH 30.1 26.5 - [place] 33.0 pg [facility] MCHC 33.3 31.5 - [place] 36.5 g/dL [facility] RDW 13.8 10.0 - [place] 15.0 % [facility] Platelet Count 213 150 - 450 [place] 10e9/L [facility] Specimen Anatomical Collection Method Collection Time Receive d Time (Source) Location / / Volume Laterality Blood specimen 05/04/2015 9:39 AM 015 9:44 (specimen) BUTTON SEWER HAND AM BUTTON SEWER HAND Froylan Louise MD LAB - BLOOD ORDERABLES Performing Organization Address City/State/ZIP Code Phon e Number [facility] [address] [place] [address] documented in this encounter Visit [...] findings documented in this encounter Care Teams Supervisor Transferring And Boxing Relationship Specialty Start Date End Date Froylan Louise MD PCP - General Family Practice 02/22/14 Froylan Louise MD PCP - Assigned PCP 03/13/14 08/25/18 rFoylan Louise MD Assigned PCP 03/13/14 2 documented as of this encounter
--- OUTSIDE RECORDS SUMMARY | 2022-05-15 23:03 | XMS_ITS | Encounter Summary ---
:1955 Author Organization [place] Address [address] [place] [address] Care Team Providers Name Role Phone Froylan Louise MD Primary Care Provider Unavailable Froylan Louise MD Unavailable Unavailable Froylan Louise MD Unavailable Unavailable Reason for Visit Reason Onset Date Comments Refill Request 05/02/2015 Loperamide Encounter Details Date Type Department Care Team Description [facility], Refill Request Chhaya VILLASEÑOR (Loperamide) [address] [place] [address] Social History Tobacco Use [...] you attend holiness or Patient refused 2020 orthodoxy services? Do [...] 05/02/2015 8:57 AM CST Prescription approved per [facility] Refill Protocol. Wendi Lindsay RN, BSN OR JAVA DATA ARCHITECT Telephone Encounter - Raine Mejia - 05/02/2015 8:21 AM CST Loperamide Last Written Prescription Date: 03/15/15 Last Fill Quantity: 480, # refills: 0 Last Office Visit with [facility] primary care provider: 07/19/14, Dileep Kendrick Future Office visit: Next 5 appointments (look out 90 days) May 04, 2015 9:00 AM Office Visit with Froylan Louise MD [facility] ([facility] [address] [place] [phone] Routing refill request to provider for review/approval because: Drug not on the [facility] refill protocol or controlled substance OR JAVA DATA ARCHITECT documented in this encounter Plan of Treatment Upcoming Encounters Date Type Specialty Care Team Description 05/20/2022 Lab Lab documented as of this encounter Visit Diagnoses Diagnosis H/O ulcerative colitis - Primary Personal history of other diseases of di gestive system documented in this encounter Care Teams Real Estate Account Executive Relationship Specialty Start Date End Date Froylan Louise MD PCP - General Family Practice 02/22/14 Froylan Louise MD PCP - Assigned PCP 03/13/14 08/25/18 Froylan Louise MD Assigned PCP 03/13/14 2 documented as of this encounter
--- OUTSIDE RECORDS SUMMARY | 2022-05-15 23:03 | XMS_ITS | Encounter Summary ---
:1955 Author Organization [place] Address [address] [place] [address] Care Team Providers Name Role Phone Froylan Louise MD Primary Care Provider Unavailable Froylan Louise MD Unavailable Unavailable Froylan Louise MD Unavailable Unavailable Reason for Visit Reason Onset Date Comments Refill Request 08/30/2015 triamcinolone (KENAL OG) 0.1 % cream Encounter Details Date Type Department Care Team Description 08/30/2015 [facility] Froylan Louise Ra, Refill Request Chhaya VILLASEÑOR (triamcinolone (KENALOG) [id number] [facility] 0.1 % cream) [place] [address] Social History Tobacco Use [...] you attend yarsani or Patient refused 2020 lutheran services? Do [...] 08/31/2015 8:06 AM CST Prescription approved per [facility] Refill Protocol. Wendi Lindsay RN, BSN ERER Telephone Encounter - Rosmery Eller - 08/30/2015 7:19 PM CST Triamcinolone (KENALOG) 0.1% cream Last Written Prescription Date: 03/04/14 Last Fill Quantity: 30 g, # refills: 3 Last Office Visit with [facility] or [facility] prescribing provider: 05/04/15 ERER documented in this encounter Plan of Treatment Upcoming Encounters Date Type Specialty Care Team Description 05/20/2022 Lab Lab documented as of this encounter Visit Diagnoses Diagnosis Lichen planus - Primary documented in this encounter Care Teams Internet Sales Consultant Relationship Specialty Start Date End Date Froylan Louise MD PCP - General Family Practice 02/22/14 Froylan Louise MD PCP - Assigned PCP 03/13/14 08/25/18 Froylan Louise MD Assigned PCP 03/13/14 2 documented as of this encounter
--- OUTSIDE RECORDS SUMMARY | 2022-05-15 23:03 | XMS_ITS | Encounter Summary ---
:1955 Author Organization [place] Address [address] [place] [address] Care Team Providers Name Role Phone Froylan Louise MD Primary Care Provider Unavailable Froylan Louise MD Unavailable Unavailable Froylan Louise MD Unavailable Unavailable Reason for Visit Reason Comments Physical Encounter Details Date Type Department Care Team Description 05/31/2016 Office Visit [facility] Froylan Louise Encounter for routine adult health examination without abnormal findings (Primary Dx); Clinic Chhaya Dubose MD Postthrombotic syndrome; [address] [facility] Peripheral edema; [place], [place] Mild persisten t asthma without complication; [phone] Hyperlipidemia LDL goal <160 ; [phone] Personal histor y of DVT (deep vein [...] you attend spiritism or Patient refused 2020 holiness services? Do [...] Comments Blood Pressure 126/82 05/31/2016 2:01 PM GENERALIST Pulse 63 05/31/2016 2:01 PM GENERALIST Temperature 36.7 ??C (98 ??F) 05/31/2016 2:01 PM GENERALIST Respiratory Rate - - Oxygen Saturation 97% 05/31/2016 2:01 PM GENERALIST Inhaled Oxygen Concentration - - Weight 103 kg (227 lb) 05/31/2016 2:01 PM GENERALIST Height 182.9 cm (6') 05/31/2016 2:01 PM GENERALIST Body Mass Index 30.79 05/31/2016 2:01 PM GENERALIST documented in this encounter Patient Instructions Patient InstructionsHilda Gibson CMA - 05/31/2016 2:02 PM CST [...] doctor every 1 to 2 years. ??? RALIST documented in this encounter Progress Notes Froylan [...] Yes All Histories reviewed and updated in [facility]. Past Medical History Diagnosis Date ??? [...] ??? Pouchoscopy N/A 06/22/2014 Procedure: POUCHOSCOPY; Surgeon: Cahse Suazo MD; Location: [facility] ??? Orthopedic [...] list, Allergies, and Medical/Social/Surgical histories reviewed in [facility] andupdated as appropriate. OBJECTIVE: Temp(Src) 98 ??F [...] Prophylaxis Lung CA Screening Froylan Louise MD [facility] RALIST documented in this encounter Nursing Notes Hilda [...] kg). Hilda Gibson CMA Health Maintenance- Reviewed. RALIST documented in this encounter Plan of Treatment Upcoming Encounters Date Type Specialty Care Team Description 05/20/2022 Lab Lab documented as of this encounter Results CBC with platelets (06/08/2016 10:22 AM GENERALIST) athologist Signature WBC 5.3 4.0 - 11.0 [place] 10e9/L [facility] RBC Count 4.69 4.4 - 5.9 [place] 10e12/L [facility] Hemoglobin 14.2 13.3 - [place] 17.7 g/dL [facility] Hematocrit 43.3 40.0 - [place] 53.0 % [facility] MCV 92 78 - 100 [facility] MCH 30.3 26.5 - [place] 33.0 pg [facility] MCHC 32.8 31.5 - [place] 36.5 g/dL [facility] RDW 14.0 10.0 - [place] 15.0 % [facility] Platelet Count 202 150 - 450 [place] 10e9/L [facility] Specimen Anatomical Collection Method Collection Time Receive d Time (Source) Location / / Volume Laterality Blood specimen 06/08/2016 10:22 6 (specimen) AM GENERALIST 10:23 AM GENERALIST Froylan Louise MD LAB - BLOOD ORDERABLES Performing Organization Address City/State/ZIP Code Phon e Number [facility] [address] [place] [address] Hemoglobin A1c (06/08/2016 10:22 AM GENERALIST) athologist Signature Hemoglobin A1C 5.5 4.3 - 6.0 [facility] Specimen Anatomical Collection Method Collection Time Receive d Time (Source) Location / / Volume Laterality Blood specimen 06/08/2016 10:22 6 (specimen) AM GENERALIST 10:23 AM GENERALIST Froylan Louise MD LAB - BLOOD ORDERABLES Performing Organization Address City/State/ZIP Code Phon e Number [facility] [address] [place] [address] Comprehensive metabolic panel (06/08/2016 10:22 AM GENERALIST) [facility] Method Time Signature Sodium 142 133 - 144 [place] mmol/L [facility] Potassium 4.1 3.4 - 5.3 [place] mmol/L [facility] Chloride 106 94 - 109 [place] mmol/L [facility] Carbon Dioxide 31 20 - 32 [place] mmol/L [facility] Anion Gap 5 3 - 14 [place] mmol/L [facility] Glucose 97 70 - 99 [place] mg/dL [facility] Urea Nitrogen 14 7 - 30 [place] mg/dL [facility] Creatinine 0.84 0.66 - [facility] 1.25 CLINICS mg/dL [facility] GFR Estimate >90 >60 [place] Non GFR Calc mL/min/1. CLINICS 7m2 [place] GFR Estimate If >90 >60 [place] Black GFR Calc mL/min/1. CLIN ICS 7[facility]2 [facility] Calcium 8.9 8.5 - [facility] 10.1 CLINICS mg/dL [facility] Bilirubin Total 0.9 0.2 - 1.3 [place] mg/dL [facility] Albumin 3.4 3.4 - 5.0 [facility] g/dL [facility] Protein Total 6.9 6.8 - 8.8 [place] g/dL [facility] Alkaline 94 40 - 150 [place] Phosphatase U/L [facility] ALT 24 0 - 70 [place] [facility] AST 16 0 - 45 [facility] U/L [facility] Specimen Anatomical Collection Method Collection Time Receive d Time (Source) Location / / Volume Laterality Blood specimen 06/08/2016 10:22 6 (specimen) AM GENERALIST 10:23 AM GENERALIST Froylan Louise MD LAB - BLOOD ORDERABLES Performing Organization Address City/[facility]/ZIP Code Phon e Number [facility] [address], [place] [address] Lipid panel reflex to direct LDL (06/08/2016 10:22 AM GENERALIST) [facility] Method Time Signature Cholesterol 156 <200 [place] mg/dL [facility] Triglycerides 93 <150 [place] mg/dL [facility] HDL Cholesterol 45 >39 mg/dL [facility] LDL Cholesterol 92 <100 [place] Calculated mg/dL [facility] Comment: Desirable: <100 mg/dl Non HDL Cholesterol 111 <130 mg/dL [facility] Specimen Anatomical Collection Method Collection Time Receive d Time (Source) Location / / Volume Laterality Blood specimen 06/08/2016 10:22 6 (specimen) AM GENERALIST 10:23 AM GENERALIST Froylan Louise MD LAB - BLOOD ORDERABLES Performing Organization Address [email or web address] Code Phon e Number [facility] [address] [place] [phone] documented in this encounter Visit Diagnoses Diagnosis [...] (H) documented in this encounter Care Teams Foundry Metallurgist Relationship Specialty Start Date End Date Froylan Louise MD PCP - General Family Practice 02/22/14 Froylan Louise MD PCP - Assigned PCP 03/13/14 08/25/18 Froylan Louise MD Assigned PCP 03/13/14 2 documented as of this encounter
--- OUTSIDE RECORDS SUMMARY | 2022-05-15 23:03 | XMS_ITS | Encounter Summary ---
:1955 Author Organization [place] Address [address] [place] [address] Care Team Providers Name Role Phone Froylan Louise MD Primary Care Provider Unavailable Froylan Louise MD Unavailable Unavailable Froylan Louise MD Unavailable Unavailable Reason for Visit Reason Onset Date Comments Other 04/03/2015 chills Encounter Details Date Type Department Care Team Description 04/03/2015 [facility] Froylan Louise Ra, MD Other (chills) [address] [phone] Social History Tobacco Use [...] you attend orthodox or Patient refused 2020 advent services? Do [...] on filedocumented in this encounter Care Teams American History Professor Relationship Specialty Start Date End Date Froylan Louise MD PCP - General Family Practice 02/22/14 Froylan Louise MD PCP - Assigned PCP 03/13/14 08/25/18 Froylan Louise MD Assigned PCP 03/13/14 2 documented as of this encounter
--- OUTSIDE RECORDS SUMMARY | 2022-05-15 23:03 | XMS_ITS | Encounter Summary ---
:1955 Author Organization [place] Address [address] [place] [address] Care Team Providers Name Role Phone Froylan Louise MD Primary Care Provider Unavailable Froylan Louise MD Unavailable Unavailable Froylan Louise MD Unavailable Unavailable Reason for Visit Reason Onset Date Comments Nurse Advice Line 07/24/2015 Encounter Details Date Type Department Care Team Description 07/24/2015 Telephone [facility] Froylan Louise Ra, MD Nurse Advice Line [address] [phone] Social History Tobacco Use [...] you attend temple or Patient refused 2020 gnosticist services? Do [...] call back to clinic. Esthela Corea RN CH ENGINE OPTIMIZATION ANALYST Telephone Encounter - Wendi Lindsay RN - 07/24/2015 2:40 PM CST Pt calling to get a referral to see a provider for ringing in his ears. His friend told him of a provider at [facility] but RN cannot find the provider with [...] of the provider Wendi Lindsay RN, BSN CH ENGINE OPTIMIZATION ANALYST documented in this encounter Plan of Treatment Upcoming Encounters Date Type Specialty Care Team Description 05/20/2022 Lab Lab documented as of this encounter Visit Diagnoses Not on filedocumented in this encounter Care Teams Fabrication Operator Relationship Specialty Start Date End Date Froylan Louise MD PCP - General Family Practice 02/22/14 Froylan Louise MD PCP - Assigned PCP 03/13/14 08/25/18 Froylan Louise MD Assigned PCP 03/13/14 2 documented as of this encounter
--- OUTSIDE RECORDS SUMMARY | 2022-05-15 23:03 | XMS_ITS | Encounter Summary ---
:1955 Author Organization [place] Address [address] [place] [address] Care Team Providers Name Role Phone Froylan Louise MD Primary Care Provider Unavailable Froylan Louise MD Unavailable Unavailable Froylan Louise MD Unavailable Unavailable Reason for Visit Reason Onset Date Comments Dental Problem 06/06/2015 Encounter Details Date Type Department Care Team Description 06/06/2015 Telephone [facility] Froylan Louise Ra, MD Dental Problem [address] [phone] Social History Tobacco Use [...] you attend congregation or Patient refused 2020 holiness services? Do [...] will go to DDS Esthela Corea, RN GER CORPORATE documented in this encounter Plan of Treatment Upcoming Encounters Date Type Specialty Care Team Description 05/20/2022 Lab Lab documented as of this encounter Visit Diagnoses Not on filedocumented in this encounter Care Teams Senior Strategy Manager Relationship Specialty Start Date End Date Froylan Louise MD PCP - General Family Practice 02/22/14 Froylan Louise MD PCP - Assigned PCP 03/13/14 08/25/18 Froylan Louise MD Assigned PCP 03/13/14 2 documented as of this encounter
--- OUTSIDE RECORDS SUMMARY | 2022-05-15 23:03 | XMS_ITS | Encounter Summary ---
:1955 Author Organization [facility] Address [address] [place] [address] Care Team Providers Name Role Phone Froylan Louise MD Primary Care Provider Unavailable Froylan Louise MD Unavailable Unavailable Froylan Louise MD Unavailable Unavailable Reason for Visit Reason Onset Date Comments Refill Request 02/08/2016 zolpidem Encounter Details Date Type Department Care Team Description 02/08/2016 [facility] Fro[facility] Ra, Refill Request Chhaya VILLASEÑOR (zolpidem) [address] [place] [address] Social History Tobacco Use [...] PM CDT Rx approved, fax to the [facility] in [facility] in [place], Pharmacy will notified patient when prescriptionis ready to be picked up. Carolin Dawson Bi Specialist Telephone Encounter - Froylan Louise MD - [...] for review/approval because: Drug not on the [facility] refill protocol ACCOUNT SERVICE REPRESENTATIVE checked this in not on list, no [...] # refills: 0 Last Office Visit with [facility] primary care provider: 01/24/2016 Future Office visit: Next 5 appointments (look out 90 days) Feb 09, 2016 2:00 PM Return Visit with Esthela Blevins MD [facility] [address] [facility] [address] Controlled substance agreement on file: No. Processing: Fax Rx [facility] ACCOUNT SERVICE REPRESENTATIVE checked in past 6 months? No, route to CINDY Black XRT documented in this encounter Plan of Treatment Upcoming Encounters Date Type Specialty Care Team Description 05/20/2022 Lab Lab documented as of this encounter Visit Diagnoses Diagnosis Insomnia, unspecified type - Primary documented in this encounter Care Teams Application Integrator Relationship Specialty Start Date End Date Fryolan Louise MD PCP - General Family Practice 02/22/14 Froylan Louise MD PCP - Assigned PCP 03/13/14 08/25/18 Froylan Louise MD Assigned PCP 03/13/14 2 documented as of this encounter
--- OUTSIDE RECORDS SUMMARY | 2022-05-15 23:03 | XMS_ITS | Encounter Summary ---
:1955 Author Organization [place] Address [address] [place] [address] Care Team Providers Name Role Phone Froylan Louise MD Primary Care Provider Unavailable Froylan Louise MD Unavailable Unavailable Froylan Louise MD Unavailable Unavailable Reason for Visit Reason Onset Date Comments Nurse Advice Line 05/08/2015 Ipratropium-Albutero l (COMBIVENT RESPIMAT) 20-100 MCG/ACT inhaler Encounter Details Date Type Department Care Team Description 05/08/2015 Telephone [facility] Froylan Louise Nurs e Advice Line Clinic Chhaya VILLASEÑOR (Ipratropium-Albuterol [address] [facility] (COMBIVENT RESPIMAT) [place], [place] 20-100 MCG/ACT inhaler) [phone] Social History [...] you attend amish or Patient refused 2020 anabaptism services? Do [...] atrovent and albuterol. Wendi Lindsay RN, BSN MIXER Telephone Encounter - Carolin Dawson - 05/08/2015 2:59 PM CST Patient is requesting to speak to Dr. Louise about the Ipratropium-Albuterol (COMBIVENT RESPIMAT) 20-100 MCG/ACT inhaler, patient is unsure he needs to start this inhaler if the other inhaler has been working. Carolin Dawson Turning Machine Operator Helper MIXER documented in this encounter Plan of Treatment Upcoming Encounters Date Type Specialty Care Team Description 05/20/2022 Lab Lab documented as of this encounter Visit Diagnoses Not on filedocumented in this encounter Care Teams Hotel Services Supervisor Relationship Specialty Start Date End Date Froylan Louise MD PCP - General Family Practice 02/22/14 Froylan Louise MD PCP - Assigned PCP 03/13/14 08/25/18 Froylan Louise MD Assigned PCP 03/13/14 2 documented as of this encounter
--- OUTSIDE RECORDS SUMMARY | 2022-05-15 23:03 | XMS_ITS | Encounter Summary ---
:1955 Author Organization [place] Address [address] [place] [address] Care Team Providers Name Role Phone Froylan Louise MD Primary Care Provider Unavailable Froylan Louise MD Unavailable Unavailable Froylan Louise MD Unavailable Unavailable Reason for Visit Reason Onset Date Comments Refill Request 10/17/2015 furosemide (LASIX) 2 0 MG tablet Encounter Details Date Type Department Care Team Description 10/17/2015 Refill [facility] Froylan Louise Ra, Refill Request Chhaya VILLASEÑOR (furosemide (LASIX) [address] MG tablet) [place] [address] Social History Tobacco Use [...] you attend mormonism or Patient refused 2020 christian services? Do [...] 10/18/2015 8:32 AM CDT Prescription approved per [facility] Refill Protocol. Wendi Lindsay RN, BSN Telephone Encounter - Jazzy Soares - 10/17/2015 7:14 PM CDT Pending Prescriptions: Disp Refills furosemide (LASIX) 20 MG tablet 90 tab*0 Sig: Take 0.5-1 tablets by mouth. Take as needed for leg swelling. Last Written Prescription Date: 03/14/2015 Last Fill Quantity: 90, # refills: 0 Last Office Visit with [facility], [facility] or [facility] prescribing provider: 05/04/2015 POTASSIUM Date Value [...] Edema documented in this encounter Care Teams Surface Boss Relationship Specialty Start Date End Date Froylan Louise MD PCP - General Family Practice 02/22/14 Froylan Louise MD PCP - Assigned PCP 03/13/14 08/25/18 Froylan Louise MD Assigned PCP 03/13/14 2 documented as of this encounter
--- OUTSIDE RECORDS SUMMARY | 2022-05-15 23:03 | XMS_ITS | Encounter Summary ---
:1955 Author Organization [facility] Address [address] [place] [address] Care Team Providers Name Role Phone Froylan Louise MD Primary Care Provider Unavailable Froylan Louise MD Unavailable Unavailable Froylan Louise MD Unavailable Unavailable Reason for Visit Reason Onset Date Comments Refill Request 05/08/2015 cyclobenzaprine Encounter Details Date Type Department Care Team Description 05/08/2015 Refill [facility] Froylan Louise Ra, Refill Request Chhaya VILLASEÑOR (cyclobenzaprine) [address] [place] [address] Social History Tobacco Use [...] you attend gnosticist or Patient refused 2020 religion services? Do [...] # refills: 1 Last Office Visit with [facility] primary care provider: 05/04/2015 Future Office visit: Routing refill request to provider for review/approval because: Drug not on the [facility] refill protocol or controlled substance Carlos Alberto Black XRT SHING OPERATOR documented in this encounter Plan of Treatment Upcoming Encounters Date Type Specialty Care Team Description 05/20/2022 Lab Lab documented as of this encounter Visit Diagnoses Diagnosis Cramp of limb - Primary documented in this encounter Care Teams Nature Photographer Relationship Specialty Start Date End Date Froylan Louise MD PCP - General Family Practice 02/22/14 Froylan Louise MD PCP - Assigned PCP 03/13/14 08/25/18 Froylan Louise MD Assigned PCP 03/13/14 2 documented as of this encounter
--- OUTSIDE RECORDS SUMMARY | 2022-05-15 23:03 | XMS_ITS | Encounter Summary ---
:1955 Author Organization [place] Address [address] [place] [address] Care Team Providers Name Role Phone Froylan Louise MD Primary Care Provider Unavailable Froylan Louise MD Unavailable Unavailable Froylan Louise MD Unavailable Unavailable Reason for Visit Reason Onset Date Comments Refill Request 05/12/2016 Viagra 50MG Tablet Encounter Details Date Type Department Care Team Description 05/12/2016 Refill [facility] Froylan Louise Ra, Refill Request (Sommer Shaver MD 50MG Tablet) [address] [place] [address] Social History Tobacco Use [...] you attend methodist or Patient refused 2020 gnosticism services? Do [...] due for px. Wendi Lindsay RN, BSN S VENDOR Telephone Encounter - Arleen Vidal RRT - 05/12/2016 2:48 PM CST Viagra 50MG Tablet Last Written Prescription Date: 05/04/2015 Last Fill Quantity: 6, # refills: 11 Last Office Visit with [facility] or [facility] prescribing provider: 01/24/2016 S VENDOR documented in this encounter Plan of Treatment Upcoming Encounters Date Type Specialty Care Team Description 05/20/2022 Lab Lab documented as of this encounter Visit Diagnoses Diagnosis Erectile dysfunction, unspecified erecti le dysfunction type - Primary documented in this encounter Care Teams Prototype Engineer Manager Relationship Specialty Start Date End Date Froylan Louise MD PCP - General Family Practice 02/22/14 Froylan Louise MD PCP - Assigned PCP 03/13/14 08/25/18 Froylan Louise MD Assigned PCP 03/13/14 2 documented as of this encounter
--- OUTSIDE RECORDS SUMMARY | 2022-05-15 23:03 | XMS_ITS | Encounter Summary ---
:1955 Author Organization [place] Address [address] [place] [address] Care Team Providers Name Role Phone Froylan Louise MD Primary Care Provider Unavailable Froylan Louise MD Unavailable Unavailable Froylan Louise MD Unavailable Unavailable Reason for Visit Reason Onset Date Comments Refill Request 01/02/2016 furosemide, cycloben zaprine Encounter Details Date Type Department Care Team Description [facility], Refill Request Chhaya VILLASEÑOR (furosemide, [address] [facility] cyclobenzaprine) [place] [address] Social History Tobacco Use [...] you attend lutheran or Patient refused 2020 scientologist services? Do [...] because: Drug not on the [facility] refill protocol How many refills for lasix? [...] # refills: 2 Last Office Visit with [facility], [facility] or [facility] prescribing provider: Future Office visit: Routing refill request to provider for review/approval because: Drug not on the [facility], [facility] or [facility] refill protocol or controlled substance Furosemide Last Written Prescription Date: 10/18/2015 Last Fill Quantity: 90, # refills: 0 Last Office Visit with [facility], [facility] or [facility] prescribing provider: 05/04/2015 POTASSIUM Date Value Ref [...] Edema documented in this encounter Care Teams Director Paid Media Relationship Specialty Start Date End Date Froylan Louise MD PCP - General Family Practice 02/22/14 Froylan Louise MD PCP - Assigned PCP 03/13/14 08/25/18 Froylan Louise MD Assigned PCP 03/13/14 2 documented as of this encounter
--- OUTSIDE RECORDS SUMMARY | 2022-05-15 23:03 | XMS_ITS | Encounter Summary ---
:1955 Author Organization [place] Address [address] [place] [address] Care Team Providers Name Role Phone Froylan Louise MD Primary Care Provider Unavailable Froylan Louise MD Unavailable Unavailable Froylan Louise MD Unavailable Unavailable Reason for Visit Reason Onset Date Comments Refill Request 03/14/2015 Flexeril, Lasix, Qva r, Loperamide Encounter Details Date Type Department Care Team Description 03/14/2015 Refill [facility] Froylan Louise Ra, Refill Request Chhaya VILLASEÑOR (Flexeril, Lasix, Qvar, [address] [place] [address] Loperamide) [place] [address] Social History Tobacco Use [...] you attend confucianism or Patient refused 2020 baptist services? Do [...] to copy right. Pt is not checking tuQuejaSuma message either. Please advise on Qvar, Flexeril, and Imodium (not dx code attached for imodium) requests Prescription approved per [facility] Refill Protocol for lasix Wendi Lindsay RN, [...] # refills: 1 Last Office Visit with [facility] primary care provider: 05/27/2014 Future Office visit: none Routing refill request to provider for review/approval because: Drug not on the [facility] refill protocol or controlled substance Furosemide Last Written Prescription Date: 12/22/2014 Last Fill Quantity: 90, # refills: 0 Last Office Visit with [facility] primary care provider: 05/27/2014 POTASSIUM Date Value Ref Range Status 05/27/2014 3.8 3.4 - 5.3 mmol/L Final CREATININE Date Value Ref Range Status 05/27/2014 0.85 0.66 - 1.25 mg/dL Final BP Readings from Last 3 Encounters: 05/27/14 130/90 06/22/14 131/92 03/04/14 132/80 Qvar Last Written Prescription Date: 03/04/2015 Last Fill Quantity: 1, # refills: 11 Last Office Visit with [facility] primary care provider: 03/04/2014 Loperamide Last Written Prescription Date: 03/04/2014 Last Fill Quantity: 480, # refills: 12 Last Office Visit with [facility] primary care provider: 05/27/2014 Future Office visit: none Routing refill request to provider for review/approval because: Drug not on the [facility] refill protocol or controlled substance Carlos Alberto [...] system documented in this encounter Care Teams Marshmallow Machine Operator Relationship Specialty Start Date End Date Froylan Louise MD PCP - General Family Practice 02/22/14 Froylan Louise MD PCP - Assigned PCP 03/13/14 08/25/18 Froylan Louise MD Assigned PCP 03/13/14 2 documented as of this encounter
--- OUTSIDE RECORDS SUMMARY | 2022-05-15 23:03 | XMS_ITS | Encounter Summary ---
:1955 Author Organization [place] Address [facility] [place] [address] Care Team Providers Name Role Phone Froylan Louise MD Primary Care Provider Unavailable Froylan Louise MD Unavailable Unavailable Froylan Louise MD Unavailable Unavailable Reason for Visit Reason Onset Date Comments Refill Request 04/05/2016 zolpidem (AMBIEN CR) 12.5 MG CR tablet Encounter Details Date Type Department Care Team Description 04/05/2016 Refill [facility] Froylan Louise Ra, Refill Request (zolpidem Chhaya VILLASEÑOR (AMBIEN CR) 12.5 MG CR [address] [facility] tablet) [place] [address] Social History Tobacco Use [...] you attend christian or Patient refused 2020 advent services? Do [...] CDT Rx approved, fax to the [facility] in [facility] Samir Training Personnel Supervisor Telephone Encounter - Froylan Louise MD - 04/05/2016 1:42 PM CDT Refilled. Telephone Encounter - Brandon Eller - 04/05/2016 8:02 AM CDT zolpidem (AMBIEN CR) 12.5 MG CR tablet Last Written Prescription Date: 02-13-2016 Last Fill Quantity: 30, # refills: 0 Last Office Visit with [facility] or [facility] prescribing provider: 01-24-2016 Future Office visit: Routing refill request to provider for review/approval because: zolpidem (AMBIEN CR) 12.5 MG CR tablet documented in this encounter Plan of Treatment Upcoming Encounters Date Type Specialty Care Team Description 05/20/2022 Lab Lab documented as of this encounter Visit Diagnoses Diagnosis Insomnia, unspecified type - Primary documented in this encounter Care Teams Safety Council Director Relationship Specialty Start Date End Date Froylan Louise MD PCP - General Family Practice 02/22/14 Froylan Louise MD PCP - Assigned PCP 03/13/14 08/25/18 Froylan Louise MD Assigned PCP 03/13/14 2 documented as of this encounter
--- OUTSIDE RECORDS SUMMARY | 2022-05-15 23:03 | XMS_ITS | Encounter Summary ---
:1955 Author Organization [facility] Address [address] [place] [address] Care Team Providers Name Role Phone Froylan Louise MD Primary Care Provider Unavailable Froylan Louise MD Unavailable Unavailable Froylan Louise MD Unavailable Unavailable Reason for Visit Reason Onset Date Comments Refill Request 05/17/2016 beclomethasone Encounter Details Date Type Department Care Team Description [facility] Ra, Refill Request Chhaya VILLASEÑOR (beclomethasone ) [address] [place] [address] Social History Tobacco Use [...] you attend quaker or Patient refused 2020 orthodox services? Do [...] since last visit. Wendi Lindsay RN, BSN ACTION MACHINE OPERATOR Telephone Encounter - Carlos Alberto Black - 05/17/2016 3:20 PM CST Pending Prescriptions: Disp Refills beclomethasone (QVAR) 80 MCG/ACT Inhaler 1 Inha*11 Sig: Inhale 1 puff into the lungs 2 times daily Last Written Prescription Date: 05/04/2015 Last Fill Quantity: 1, # refills: 11 Last Office Visit with [facility], [facility] or [facility] prescribing provider: 05/04/2015 Future Office Visit: Date [...] any previous visit. Carlos Alberto Black XRT ACTION MACHINE OPERATOR documented in this encounter Plan of Treatment Upcoming Encounters Date Type Specialty Care Team Description 05/20/2022 Lab Lab documented as of this encounter Visit Diagnoses Diagnosis Mild persistent asthma, uncomplicated - Primary Unspecified asthma documented in this encounter Care Teams Spectacle Truer Relationship Specialty Start Date End Date Froylan Louise MD PCP - General Family Practice 02/22/14 Froylan Louise MD PCP - Assigned PCP 03/13/14 08/25/18 Froylan Louise MD Assigned PCP 03/13/14 2 documented as of this encounter
--- OUTSIDE RECORDS SUMMARY | 2022-05-15 23:04 | XMS_ITS | Encounter Summary ---
:1955 Author Organization [place] Address [address] [place] [address] Care Team Providers Name Role Phone Froylan Louise MD Primary Care Provider Unavailable Froylan Louise MD Unavailable Unavailable Froylan Louise MD Unavailable Unavailable Reason for Visit Reason Onset Date Comments Nurse Advice Line 06/17/2014 order for a lab Encounter Details Date Type Department Care Team Description 06/17/2014 Telephone [facility] Froylan Louise Nurs e Advice Line Clinic Chhaya VILLASEÑOR (order for a lab) [address] [place] [address] Social History Tobacco Use Types [...] you attend taoist or Patient refused 2020 christianity services? Do [...] CST Gave patient the message. Carolin Dawson Dynamometer Tester TRUCTION TRENCH DIGGER Telephone Encounter - Carolin Dawson - 06/27/2014 10:45 AM CST LVM asking patient to call the clinic, please give him the message below. Carolin Dawson Dynamometer Tester TRUCTION TRENCH DIGGER Telephone Encounter - Froylan Louise MD - 06/27/2014 9:44 AM CST I do not do this lab - if he wants referral to endocrinology we can do that. TRUCTION TRENCH DIGGER Telephone Encounter - Esthela Corea RN - 06/17/2014 3:07 PM CST Pt states his neighbor states he should check this - Advised if wants to check HGH should discuss with PCP at [facility]. PT declines appt at this time. Please review and advise as to other labs. Esthela Corea RN TRUCTION TRENCH DIGGER Telephone Encounter - Carolin Dawson - 06/17/2014 1:54 PM CST Name of caller: Vrigil Relationship to pt: self Reason for call: Patient is having some lab work done tomorrow, he would like to know if Dr. Louise can put in a order for HGH1 test? Also patient wants to know what you think of his latest testosteroneresults Best phone number to reach pt at is: [phone] Ok to leave a message with medical info? Pharmacy Information: Carolin Dawson Dynamometer Tester TRUCTION TRENCH DIGGER documented in this encounter Plan of Treatment Upcoming Encounters Date Type Specialty Care Team Description 05/20/2022 Lab Lab documented as of this encounter Visit Diagnoses Not on filedocumented in this encounter Care Teams Disability Counselor Relationship Specialty Start Date End Date Froylan Louise MD PCP - General Family Practice 02/22/14 Froylan Louise MD PCP - Assigned PCP 03/13/14 08/25/18 Froylan Louise MD Assigned PCP 03/13/14 2 documented as of this encounter
--- OUTSIDE RECORDS SUMMARY | 2022-05-15 23:04 | XMS_ITS | Encounter Summary ---
:1955 Author Organization [place] Address [address] [place] [address] Care Team Providers Name Role Phone Froylan Louise MD Primary Care Provider Unavailable Froylan Louise MD Unavailable Unavailable Froylan Louise MD Unavailable Unavailable Reason for Visit Reason Onset Date Comments Other 06/01/2014 Dr Botello's office Encounter Details Date Type Department Care Team Description 06/01/[address] [facility] Froylan Louise Othe r ([facility] [place] office) [address] [place] [address] Social History Tobacco Use Types [...] you attend zoroastrianism or Patient refused 2020 buddhist services? Do [...] encounter Miscellaneous Notes Telephone Encounter - Wendi Lnidsay RN - 06/01/2014 9:38 AM CST Received [...] to Dr Dani Mondragon's direct line is [phone] if you need to talk to her or Dr Botello about this patient Wendi Lindsay RN, BSN RENCE LIBRARIAN documented in this encounter Plan of Treatment Upcoming Encounters Date Type Specialty Care Team Description 05/20/2022 Lab Lab documented as of this encounter Visit Diagnoses Not on filedocumented in this encounter Care Teams Cement Railroad Car Loader Relationship Specialty Start Date End Date Froylan Loiuse MD PCP - General Family Practice 02/22/14 Froylan Louise MD PCP - Assigned PCP 03/13/14 08/25/18 Froylan Louise MD Assigned PCP 03/13/14 2 documented as of this encounter
--- OUTSIDE RECORDS SUMMARY | 2022-05-15 23:04 | XMS_ITS | Encounter Summary ---
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 Do [...] hypofunction documented in this encounter Care Teams Shield Installer Relationship Specialty Start Date End Date Ian Kendrick MD PCP - General 11/19/07 02/21/14 [facility] [address] [place] [address] documented as of this encounter
--- OUTSIDE RECORDS SUMMARY | 2022-05-15 23:04 | XMS_ITS | Encounter Summary ---
:1955 Author Organization [place] Address [address] [place] [address] Care Team Providers Name Role Phone Ian Kendrick MD Primary Care Provider [phone] Encounter Details Date Type Department Care Team Description 09/02/2013 Orders Only [facility] Talia tosterone deficiency [facility] [id number] [place] [address] Social History Tobacco Use Types [...] you attend catholic or Patient refused 2020 scientologist services? Do [...] CDT) P athologist Signature Sex Hormone 27 [facility] Comment: Reference range: 11 to 80 Unit: nmol/L (Note) REFERENCE INTERVAL: Sex Hormone Binding Globulin Access complete set of age- and/or gende r-specific reference intervals for this test in the [facility] Test [facility] ([facility]). Performed by [facility], [address] [place] [address] [email or web address], Nish Knight MD, L ab. Director Specimen Anatomical Collection Method Collection Time Receive d Time (Source) Location / / Volume Laterality Blood specimen 09/02/2013 1:49 PM 014 1:50 (specimen) CDT PM CDT Ian Kendrick MD LAB - BLOOD ORDERABLES Performing Organization Address City/State/ZIP Code Phon e Number [facility] [address] [place] [address] Testosterone total (09/02/2013 1:49 PM CDT) Analysis Performed At Patho logist Time Signature Testosterone 363 240 - 950 [facility] Total ng/dL [facility] Specimen Anatomical Collection Method Collection Time Receive d Time (Source) Location / / Volume Laterality Blood specimen 09/02/2013 1:49 PM 014 1:50 (specimen) CDT PM CDT Ian Kendrick MD LAB - BLOOD ORDERABLES Performing Organization Address City/State/[facility] Code Phon e Number [facility] [address] [place], [place] [id number] [place] [address] LABS documented in this encounter Visit Diagnoses Diagnosis Testosterone deficiency Other testicular hypofunction documented in this encounter Care Teams Operations Administrative Assistant Relationship Specialty Start Date End Date Ian Kendrick MD PCP - General 11/19/07 02/21/14 [facility] [address] [place] [address] documented as of this encounter
--- OUTSIDE RECORDS SUMMARY | 2022-05-15 23:04 | XMS_ITS | Encounter Summary ---
:1955 Author Organization [place] Address [address] [place] [address] Care Team Providers Name Role Phone Froylan Louise MD Primary Care Provider Unavailable Froylan Louise MD Unavailable Unavailable Froylan Louise MD Unavailable Unavailable Reason for Visit Reason Onset Date Comments Refill Request 12/22/2014 Lasix Encounter Details Date Type Department Care Team Description 12/22/[address] [facility] Froylan Louise Ra, Refill Request (Lasix) Chhaya VILLASEÑOR [address] [place] [address] Social History Tobacco Use [...] you attend buddhist or Patient refused 2020 orthodox services? Do [...] ready to be picked up. Carolin Dawson Area Development Manager Telephone Encounter - Froylan Louise MD - [...] 0 Last Office Visit with [facility] primary care provider: 05/27/2014 Last refill: 07/07/2013 [...] Edema documented in this encounter Care Teams Online Marketing Analyst Relationship Specialty Start Date End Date Froylan Louise MD PCP - General Family Practice 02/22/14 Froylan Louise MD PCP - Assigned PCP 03/13/14 08/25/18 Froylan Louise MD Assigned PCP 03/13/14 2 documented as of this encounter
--- OUTSIDE RECORDS SUMMARY | 2022-05-15 23:04 | XMS_ITS | Encounter Summary ---
:1955 Author Organization [place] Address [facility] [place] [address] Care Team Providers Name Role Phone Froylan Louise MD Primary Care Provider Unavailable Froylan Louise MD Unavailable Unavailable Froylan Louise MD Unavailable Unavailable Reason for Referral - Closed Specialty Diagnoses / Procedures Referred By Contact Refer red To Contact Diagnoses Varicose veins of lower extremities with other complications Personal history of DVT (deep vein thrombosis) Postthrombotic syndrome [place] [address] [place] [address] Referral ID Status Reason Start Date Expiration Date Visits Requ ested Visits Authorized [id number] Closed 05/27/2014 11/23/2014 1 1 INE MOVER Reason for Visit Reason Comments Wound Check Encounter Details Date Type Department Care Team Description 05/27/2014 Office Visit [facility] Froylan Louise Celluliti s of foot (Primary Dx); Clinic Chhaya Dubose MD Hyperlipidemia LDL goal <160 ; [address] [facility] Low testosterone; [place], [place] Varicose veins of lower extremities with other complications; [address] Personal history of DVT (gino p vein thrombosis); [phone] Postthrombotic syndrome; Insomnia; Cramp of limb Social [...] containing 4 or more times a w [place] 05/25/2021 alcohol? How many drinks containing alcohol [...] you attend muslim or Patient refused 2020 caodaism services? Do [...] Comments Blood Pressure 130/90 05/27/2014 3:54 PM MACHINE MOVER Pulse 74 05/27/2014 3:54 PM MACHINE MOVER Temperature 36.8 ??C (98.2 ??F) 05/27/2014 3:54 PM MACHINE MOVER Respiratory Rate 16 05/27/2014 3:54 PM MACHINE MOVER Oxygen Saturation 98% 05/27/2014 3:54 PM MACHINE MOVER Inhaled Oxygen Concentration - - Weight 105 kg (231 lb 6 oz) 05/27/2014 3:54 PM MACHINE MOVER Height - - Body Mass Index 32.27 08/20/2013 5:53 AM MACHINE MOVER documented in this encounter Progress Notes Froylan [...] 30 tablet; Refill: 1 Froylan Louise MD [facility] INE MOVER documented in this encounter Nursing Notes Nicolas [...] using cuff size: large Nicolas Randhawa MA INE MOVER documented in this encounter Plan of Treatment [...] jeb t Results for this SCREENING PM MACHINE MOVER procedure are i n the results section. TSH WITH FREE T4 Routine 05/27/2014 4:33 Cellulitis of foot Re sults for this REFLEX PM MACHINE MOVER procedure are i n the results section. TESTOSTERONE TOTAL Routine 05/27/2014 4:33 Low testosterone Re sults for this PM MACHINE MOVER procedure are i n the results section. COMPREHENSIVE Routine 05/27/2014 4:33 Hyperlipidemia LDL Resul ts for this METABOLIC PANEL PM MACHINE MOVER goal <160 procedure ar e in the results section. CBC WITH PLATELETS Routine 05/27/2014 4:33 Cellulitis of foot Results for this PM MACHINE MOVER procedure are i n the results section. documented in this encounter Results (ABNORMAL) Testosterone total (05/27/2014 4:33 PM MACHINE MOVER) [facility] Method Time Signature Testosterone 195 (L) 240 - 950 [facility] Total ng/dL [facility] LABS Specimen Anatomical Collection Method Collection Time Receive d Time (Source) Location / / Volume Laterality Blood specimen 05/27/2014 4:33 PM 014 4:35 (specimen) MACHINE MOVER PM MACHINE MOVER Froylan Louise MD LAB - BLOOD ORDERABLES Performing Organization Address City/State/ZIP Code Phon e Number [facility] [address] [place] [address] [facility] LAB[facility] TSH with free T4 reflex (05/27/2014 4:33 PM MACHINE MOVER) athologist Signature TSH 1.92 0.40 - 4.00 [facility] mU/L [place] Comment: Effective 01/19/2014, the reference range for this assay has changed to reflect new instrumentation/methodology. Specimen Anatomical Collection Method Collection Time Receive d Time (Source) Location / / Volume Laterality Blood specimen 05/27/2014 4:33 PM 014 4:35 (specimen) MACHINE MOVER PM MACHINE MOVER Froylan Louise MD LAB - BLOOD ORDERABLES Performing Organization Address City/[facility]/ZIP Code Phon e Number [facility] [place] [address] [place] [address] [facility] [address], [place] [address] (ABNORMAL) Vitamin D Deficiency (05/27/2014 4:33 PM MACHINE MOVER) athologist [facility] Vitamin D 29 (L) 30 - 75 [facility] Deficiency ug/L [facility] LABS Comment: Season, race, dietary intake, and treatm ent affect the concentration of 50-jkmxtiq-Rzkwgcg D. Values may decrea se during winter [...] specimen 05/27/2014 4:33 PM 014 4:35 (specimen) MACHINE MOVER PM MACHINE MOVER Froylan Louise MD LAB - BLOOD ORDERABLES Performing Organization Address City/State/ZIP Code Phon e Number [facility] [address] [place] [address] [facility] CBC with platelets (05/27/2014 4:33 PM MACHINE MOVER) P athologist Signature WBC 7.9 4.0 - 11.0 [place] 10e9/L [facility] RBC Count 4.67 4.4 - 5.9 [place] 10e12/L [facility] Hemoglobin 14.4 13.3 - [place] 17.7 g/dL [facility] Hematocrit 43.7 40.0 - [place] 53.0 % [facility] MCV 94 78 - [address] [place] [address] [facility] MCH 30.8 26.5 - [place] 33.[address] [facility] MCHC 33.0 31.5 - [place] 36.5 g/dL [facility] RDW 12.7 10.0 - [place] 15.0 % [facility] Platelet Count 175 150 - 450 [place] 10e9/L [facility] Specimen Anatomical Collection Method Collection Time Receive d Time (Source) Location / / Volume Laterality Blood specimen 05/27/2014 4:33 PM 014 4:35 (specimen) MACHINE MOVER PM MACHINE MOVER Froylan Louise MD LAB - BLOOD ORDERABLES Performing Organization Address City/State/ZIP Code Phon e Number [facility] [address] [place] [address] (ABNORMAL) Comprehensive metabolic panel (05/27/2014 4:33 PM MACHINE MOVER) Analysis Performed At Patho logist Time Signature Sodium 141 133 - 144 [place] mmol/L [facility] Potassium 3.8 3.4 - 5.3 [place] mmol/L [facility] Chloride 110 (H) 94 - 109 [place] mmol/L [facility] Carbon Dioxide 26 20 - 32 [place] mmol/L [facility] Anion Gap 5 3 - 14 [place] mmol/L [facility] Glucose 100 (H) 70 - 99 [place] mg/dL [facility] Comment: Effective 01/19/2014, the reference range for this assay has changed to reflect new instrumentation/methodology. Urea Nitrogen 18 7 - 30 mg/dL [place] [facility] [place] Comment: Effective 01/19/2014, the reference range for this assay has changed to reflect new instrumentation/methodology. Creatinine 0.85 0.66 - 1.25 [facility] mg/dL [place] GFR Estimate >90 >60 mL/min/1.7m2 [facility] Chastity LINICS Non GFR Calc [place] GFR Estimate If Black >90 >60 mL/min/1.7m2 F [facility] GFR Calc [place] Calcium 8.9 8.5 - 10.1 mg/dL [place] [facility] [place] Comment: Effective 01/19/2014, the reference range for this assay has changed to reflect new instrumentation/methodology. Bilirubin Total 1.0 0.2 - 1.3 mg/dL [facility] Albumin 3.9 3.4 - 5.0 g/dL [facility] S [place] Protein Total 7.6 6.8 - 8.8 g/dL [place] [facility] [place] Alkaline Phosphatase 85 40 - 150 U/L [facility] ALT 31 0 - 70 U/L [facility] AST 24 0 - 45 U/L [facility] Specimen Anatomical Collection Method Collection Time Receive d Time (Source) Location / / Volume Laterality Blood specimen 05/27/2014 4:33 PM 014 4:35 (specimen) MACHINE MOVER PM MACHINE MOVER Froylan Louise MD LAB - BLOOD ORDERABLES Performing Organization Address City/State/ZIP Code Phon e Number [facility] [address] [place] [address] [facility] [address] [place], [place] [address] documented in this encounter [...] limb documented in this encounter Care Teams Occupational Therapy Specialist Relationship Specialty Start Date End Date Froylan Louise MD PCP - General Family Practice 02/22/14 Froylan Louise MD PCP - Assigned PCP 03/13/14 08/25/18 Froylan Louise MD Assigned PCP 03/13/14 2 documented as of this encounter
--- OUTSIDE RECORDS SUMMARY | 2022-05-15 23:04 | XMS_ITS | Encounter Summary ---
:1955 Author Organization [place] Address [address] [place] [address] Care Team Providers Name Role Phone Ian Kendrick MD Primary Care Provider [phone] Reason for Visit Auth/Cert Specialty Diagnoses / Procedures Referred By Contact Refer red To Contact Surgery Diagnoses Cubital tunnel syndrom Rh Periop Services Procedures PROCEDURE [facility]ACE[facility]OLDER [facility] [address] [place], [place] [address] Phone: Fax: Referral ID Status Reason Start Date Expiration Date Visits Requ ested Visits Authorized [id number] 1 1 Encounter Details Date Type Department Care Team Description 08/20/2013 Anesthesia Event [facility] Oliverio Haque sterling PeriOp Services MD [place] [address] [place], [place] ANESTHESIA [address] [facility] [phone] [place], [place] [address] Anesthesia Record Procedure Summary [...] 1015 An Stop Electronically s igned by Jovita Figueroa on August 20, 2013 10:15 A [...] Knuds en, Karen, RN endotracheal tube; Blade MANAGED CARE DIRECTOR Type: Patel; Blade Size: 2; Place by: [...] 4 or more times a w [place] 05/25/2021 alcohol? How many drinks containing alcohol [...] you attend taoism or Patient refused 2020 yarsani services? Do [...] AM CST Anesthesia Post-Evaluation Note Patient: Virgil hCristine Patient location: PACU Procedure(s) Performed: Procedure(s) with [...] 16 SpO2: 96% 97% 100% Additional Comments: N RESOURCE MANAGER Anesthesia Preprocedure Evaluation - Adolph Haque MD [...] benefits and alternatives discussed with: patient or industrial relations representative. History & Physical Review History and physical reviewed; no interval change. . [facility] Anesthesia Procedure Notes - Adolph Haque MD [...] No. Comments: 30 ml 0.5% bupivicaine placed. N RESOURCE MANAGER documented in this encounter Miscellaneous Notes Anesthesia Care Transfer Note - Jovita Figueroa APRN MANAGED CARE DIRECTOR - 08/20/2013 10:14 AM CST Anesthesia Care Transfer Note Patient: Virgil Christine Transferred to: PACU Patient vital signs: stable Airway: none N RESOURCE MANAGER documented in this encounter Plan of Treatment Upcoming Encounters Date Type Specialty Care Team Description 05/20/2022 Lab Lab documented as of this encounter Procedures Procedure Name Priority Date/Time Associated Diagnosis Comme nts ANE Routine 08/20/2013 7:20 AM Results f or this PERIPHERAL/PARAVETE HUMAN RESOURCE MANAGER procedur e are in BRAL BLOCK the results section. documented in this encounter Results Peripheral/Paravetebral Block (08/20/2013 7:20 AM HUMAN RESOURCE MANAGER) Narrative Adolph Haque MD - 7:20 AM HUMAN RESOURCE MANAGER Adolph Haque MD ? 08/20/2013 ??7:20 AM [...] ml 0.5% bupivicaine placed. Adolph Haque MD [place] ANESTHESIA documented in this encounter Visit Diagnoses Not on filedocumented in this encounter Administered Medications Inactive Administered Medications - up to 3 most recent administrations Medication Order MAR Action Action Date Dose Rate Site ceFAZolin (ANCEF) 3 g in NaCl 0.9% Given 08/20/2013 10:01 AM HUMAN RESOURCE MANAGER 2 g 100 mL injection Routine, 3 g, Intravenous, PRE-OP/PRE-PROCEDURE, Starting on Fri08/20/13 at 0610, For 1 dose, Give first dose within 1 hour PRIOR to incision., Indications: Perioperative Pharmacoprophylaxis, Pre-procedure Given 08/20/2013 7:33 AM HUMAN RESOURCE MANAGER 3 g dexamethasone (DECADRON) injection Given 08/20/2013 7:38 AM HUMAN RESOURCE MANAGER 8 mg PRN, Administer over 1-4 Minutes, Starting on Fri08/20/13 at 0738, Anesthesia Intra-op fentaNYL (SUBLIMAZE) injection Given 08/20/2013 8:54 AM HUMAN RESOURCE MANAGER 50 mcg PRN, moderate to severe pain, Starting on Fri08/20/13 at 0735, Anesthesia Intra-op Given 08/20/2013 7:37 AM HUMAN RESOURCE MANAGER 100 mcg Given 08/20/2013 7:36 AM HUMAN RESOURCE MANAGER 50 mcg glycopyrrolate (ROBINUL) injection Given 08/20/2013 9:51 AM HUMAN RESOURCE MANAGER 0.6 mg PRN, Starting on Fri08/20/13 at 0951, Anesthesia Intra-op HYDROmorphone (PF) (DILAUDID) injection Given 08/20/2013 10:08 AM HUMAN RESOURCE MANAGER 1 mg PRN, moderate to severe pain, Starting on Fri08/20/13 at 1008, Anesthesia Intra-op lactated ringers infusion New Bag 08/20/2013 7:01 AM HUMAN RESOURCE MANAGER mL Intravenous, CONTINUOUS PRN, Anesthesia Intra-op, Starting on Fri08/20/13 at 0701, Until Fri08/20/13 at 1015 lidocaine 1 % injection Given 08/20/2013 7:37 AM HUMAN RESOURCE MANAGER 50 mg PRN, Starting on Fri08/20/13 at 0737, Anesthesia Intra-op midazolam (VERSED) injection Given 08/20/2013 7:34 AM HUMAN RESOURCE MANAGER 2 mg PRN, anxiety, Starting on Fri08/20/13 at 0734, Anesthesia Intra-op Given 08/20/2013 7:05 AM HUMAN RESOURCE MANAGER 2 mg neostigmine (PROSTIGMINE) injection Given 08/20/2013 9:51 AM HUMAN RESOURCE MANAGER 3 mg Intravenous, PRN, Starting on Fri08/20/13 at 0951, Anesthesia Intra-op ondansetron (ZOFRAN) injection Given 08/20/2013 9:29 AM HUMAN RESOURCE MANAGER 4 mg PRN, nausea, vomiting, Administer over 2-5 Minutes, Starting on Fri08/20/13 at 0929, Anesthesia Intra-op propofol (DIPRIVAN) injection Given 08/20/2013 7:37 AM HUMAN RESOURCE MANAGER 200 mg PRN, Starting on Fri08/20/13 at 0737, Anesthesia Intra-op rocuronium (ZEMURON) injection Given 08/20/2013 7:38 AM HUMAN RESOURCE MANAGER 40 mg PRN, Starting on Fri08/20/13 at 0737, Anesthesia Intra-op Given 08/20/2013 7:37 AM HUMAN RESOURCE MANAGER 10 mg documented in this encounter Care Teams Notereader Relationship Specialty Start Date End Date Ian Kendrick MD PCP - General 11/19/07 02/21/14 [place] [id number] [place] [address] documented as of this encounter
--- OUTSIDE RECORDS SUMMARY | 2022-05-15 23:04 | XMS_ITS | Encounter Summary ---
:1955 Author Organization [place] Address [address] [place] [address] Care Team Providers Name Role Phone Froylan Louise MD Primary Care Provider Unavailable Froylan Louise MD Unavailable Unavailable Froylan Louise MD Unavailable Unavailable Reason for Visit Reason Onset Date Comments Refill Request 02/22/2015 sildenafil Encounter Details Date Type Department Care Team Description 02/22/2015 Refill [facility] Froylan Louise Ra, Refill Request Chhaya VILLASEÑOR (sildenafil) [address] [place] [address] Social History Tobacco Use [...] you attend holiness or Patient refused 2020 gnosticism services? Do [...] 02/22/2015 9:41 AM CDT Prescription approved per [facility] Refill Protocol. Wendi Lindsay RN, BSN Telephone Encounter - Carlos Alberto Black - 02/22/2015 7:49 AM CDT Pending Prescriptions: Disp Refills sildenafil (VIAGRA) 50 MG tablet 6 tabl*12 Sig: Take 0.5-1 tablets (25-50 mg) by mouth daily as needed for erectile dysfunction Last Written Prescription Date: 07/07/2013 Last Fill Quantity: 6, # refills: 12 Last Office Visit with [facility] primary care provider: 05/27/2014 Carlos Alberto Black XRT documented in this encounter Plan of Treatment Upcoming Encounters Date Type Specialty Care Team Description 05/20/2022 Lab Lab documented as of this encounter Visit Diagnoses Diagnosis ED (erectile dysfunction) - Primary Impotence of organic origin documented in this encounter Care Teams Bread Wrapper Operator Relationship Specialty Start Date End Date Froylan Louise MD PCP - General Family Practice 02/22/14 Froylan Louise MD PCP - Assigned PCP 03/13/14 08/25/18 Froylan Louise MD Assigned PCP 03/13/14 2 documented as of this encounter
--- OUTSIDE RECORDS SUMMARY | 2022-05-15 23:04 | XMS_ITS | Encounter Summary ---
:1955 Author Organization [place] Address [address] [place] [address] Care Team Providers Name Role Phone Froylan Louise MD Primary Care Provider Unavailable Froylan Louise MD Unavailable Unavailable Froylan Louise MD Unavailable Unavailable Reason for Visit Reason Onset Date Comments Referral 05/30/2014 Encounter Details Date Type Department Care Team Description 05/30/2014 Telephone [facility] Vascular Malissa [facility] [address] [address] Social History Tobacco Use Types [...] you attend cheondoism or Patient refused 2020 anabaptism services? Do [...] schedule. FYI to Dr. Dani Casanova RN UTER FORENSICS INVESTIGATOR Telephone Encounter - Alanna Casanova RN - 06/01/2014 10:02 AM CST Neida, Manager Purchasing approached me with her inability to find [...] Clinic Complex Care Team? Alanna Casanova RN UTER FORENSICS INVESTIGATOR Telephone Encounter - Neida Rodriguez MA - 05/30/2014 10:19 AM CST LM for patient to call back to schedule consult appointment for varicose veins & history of DVT (60 min) with Dr. Riggs or any Vascular Medicine or Auto Body Mechanic Apprentice available within the next week. UTER FORENSICS INVESTIGATOR Telephone Encounter - Lata Edward RN - [...] possibly related to vascular insufficiency. Lata PATEL UTER FORENSICS INVESTIGATOR documented in this encounter Plan of Treatment Upcoming Encounters Date Type Specialty Care Team Description 05/20/2022 Lab Lab documented as of this encounter Visit Diagnoses Not on filedocumented in this encounter Care Teams Dye Automation Operator Relationship Specialty Start Date End Date Froylan Louise MD PCP - General Family Practice 02/22/14 Froylan Louise MD PCP - Assigned PCP 03/13/14 08/25/18 Froylan Louise MD Assigned PCP 03/13/14 2 documented as of this encounter
--- OUTSIDE RECORDS SUMMARY | 2022-05-15 23:04 | XMS_ITS | Encounter Summary ---
:1955 Author Organization [place] Address [address] [place] [address] Care Team Providers Name Role Phone Froylan Louise MD Primary Care Provider Unavailable Froylan Louise MD Unavailable Unavailable Froylan Louise MD Unavailable Unavailable Reason for Visit Reason Onset Date Comments Call Back 05/23/2014 Encounter Details Date Type Department Care Team Description 05/23/2014 Telephone [facility] Froylan Louise Ra, MD Call Back [place] [id number] [place] [address] Social History Tobacco Use Types [...] you attend buddhism or Patient refused 2020 sabianism services? Do [...] meet with Dr Dani Lindsay RN, BSN T MANAGER Telephone Encounter - Jessica Bustamante - 05/23/2014 4:07 PM CST Patient has lab appt at [facility] on 06/19/14 @ 8:15am, and he want a call back to add an addition allab test, please call him @ [phone]. Latasha Bustamante Pat. Rep T MANAGER documented in this encounter Plan of Treatment Upcoming Encounters Date Type Specialty Care Team Description 05/20/2022 Lab Lab documented as of this encounter Visit Diagnoses Not on filedocumented in this encounter Care Teams Platinum And Palladium Kettle Tender Relationship Specialty Start Date End Date Froylan Louise MD PCP - General Family Practice 02/22/14 Froylan Louise MD PCP - Assigned PCP 03/13/14 08/25/18 Froylan Louise MD Assigned PCP 03/13/14 2 documented as of this encounter
--- OUTSIDE RECORDS SUMMARY | 2022-05-15 23:04 | XMS_ITS | Encounter Summary ---
:1955 Author Organization [facility] Address [address] [place] [id number] Care Team Providers Name Role Phone Ian Kendrick MD Primary Care Provider [phone] Reason for Visit Auth/Cert Specialty Diagnoses / Procedures Referred By Contact Refer red To Contact Surgery Diagnoses Cubital tunnel syndrom Rh Periop Services Procedures [facility] [address] [place], [place] [address] Phone: Fax: Referral ID Status Reason Start Date Expiration Date Visits Requ ested Visits Authorized [id number] 1 1 Encounter Details Date Type Department Care Team Description 08/20/2013 - Hospital Encounter [facility], Mild persistent asthma (Primary Dx); 08/21/[address] Horacio Hein MD Edema leg; [facility] Cervical radiculopathy; [address] [facility] ORTHOPEDICS ULCERATIVE COLITIS NOS; [place], [place] [address] [place]; [id number] [address] Lichen planus; [phone] [place], [place] Personal hist ory of DVT (deep vein thrombosis); [address] OA (osteoarthritis) of knee; [phone] Preop general p hysical exam (Work) Social [...] Comments Blood Pressure 119/77 08/21/2013 7:16 AM DEVELOPER PROGRAMMER ANALYST Pulse 72 08/21/2013 7:16 AM DEVELOPER PROGRAMMER ANALYST Temperature 35.7 ??C (96.3 ??F) 08/21/2013 7:16 AM DEVELOPER PROGRAMMER ANALYST Respiratory Rate 16 08/21/2013 7:16 AM DEVELOPER PROGRAMMER ANALYST Oxygen Saturation 99% 08/21/2013 7:16 AM DEVELOPER PROGRAMMER ANALYST Inhaled Oxygen Concentration - - Weight 109.8 kg (242 lb) 08/20/2013 5:53 AM DEVELOPER PROGRAMMER ANALYST Height 180.3 cm (5' 11) 08/20/2013 5:53 AM DEVELOPER PROGRAMMER ANALYST Body Mass Index 33.75 08/20/2013 5:53 AM DEVELOPER PROGRAMMER ANALYST documented in this encounter Medications at Time [...] therapeutic with mouth daily minerals (MULTI-VITAMIN) TABS Costilla-3 Fatty Acids Take 1 g by mouth [...] Tricia Sood-Provider - 08/23/2013 3:43 PM CST LOPER PROGRAMMER ANALYST Jose Fonseca MD - 08/21/2013 10:57 AM [...] Pain management Discharge planning Jose Fonseca MD [phone] LOPER PROGRAMMER ANALYST Arminda Whitlock, OT - 08/21/2013 8:51 AM [...] Transfer Skill: Sit to Stand Level of [place]: Sit/Stand stand-by assist Physical Assist/Nonphysical Assist: Sit/Stand supervision;verbal cues Transfer Skill: Toilet Transfer Level of [place]: Toilet stand-by assist Physical Assist/Nonphysical Assist: Toilet supervision;verbal cues Balance Balance Comments decreased balance following R knee surgery Lower Body Dressing Level of [place]: Dress Lower Body minimum assist (75% patients effort) Physical Assist/Nonphysical Assist: Dress Lower Body verbal cues Toileting Level of [place]: Toilet stand-by assist Physical Assist/Nonphysical Assist: Toilet [...] continue to monitor this shift. May Rojas SR RISK MANAGEMENT CONSULTANT,AWAKE OVERNIGHT MONITOR 08/20/2013 Marichuy Mendosa, PT - 08/20/2013 5:29 [...] Evaluation Time Total Evaluation Time (Minutes) 15 LOPER PROGRAMMER ANALYST Sofia Marshall RN - 08/20/2013 4:12 PM CST Care Submarine Diver RN: Updating for Discharge planning, spoke with Keely at [facility]. Thispt. Is set up for Home Care with with the anticipated DC date of FridayAugust 22. Please get DC ORDERS for HOME PT from Dr. Fonseca on discharge. And Fax these orders to [phone] ([facility]. ) ALSO SEE NOTES from 08/19 from Kelly Marshall NIB INSPECTOR CTS Care Transitions Team [phone] LOPER PROGRAMMER ANALYST Kelly Randhawa LSW - 08/19/2013 5:03 PM CST SWS D: Pre-admission contact from pt for post surgery care discharge planning. Call received from pt who informed Sw of his scheduled surgery and anticipated overnight stay at [facility]. He was inquiring about possibility of going [...] SW received information from Keely Sandhu from [facility] informing that she was contacted by surgeon's office with request for home PT services for pt on discharge. She has been in contact with pt, it is anticipated that start of care for pt's home PT will be on Friday. SW will follow-up with pt post-surgery to finalize home care services and assist with other discharge needs that may arise. LOPER PROGRAMMER ANALYST documented in this encounter H&P Notes Smiley Pak - 08/18/2013 9:29 AM CST This note is for the purpose of making the H&P performed in clinic within the last 30 days available in the hospital surgical encounter. LOPER PROGRAMMER ANALYST Source Note - Ian Kendrick MD - 08/16/2013 2:23 PM DEVELOPER PROGRAMMER ANALYST [facility] [address] [place] [address] [phone] Dept: [phone] PRE-OP EVALUATION: Today's date: 08/16/2013 Anita Christine [...] Time of Surgery/ Procedure: 6:00am Hospital/Surgical Facility: [facility] Primary Physician: Ian Kendrick Type of [...] Active Problem List Diagnosis Date Noted ??? [facility] Custodial 07/16/2011 Priority: High EMERGENCY CARE PLAN Presenting Problem Signs and Symptoms Treatment Plan Questions or conerns during clinic hours I will call the clinic directly Questions or conerns outside clinic hours I will call the 24 hour nurse line at [phone] Patient needs to schedule an appointment I will call the 24 hour scheduling team at [phone] orclinic directly Same day treatment I will call the clinic first, nurse line if after hours, urgent care and expresscare if needed DX V65.8 REPLACED WITH [id number] [facility] (09/28/2012) ??? Personal history of DVT (deep [...] Surgical History Procedure Date ??? Colostomy ??? [place] filter ??? Resection abdominal perineal Current Outpatient Prescriptions Medication Sig ??? [START ON 08/20/2013] rivaroxaban ANTICOAGULANT (XARELTO) 10 MG TABS tablet Take 1 tablet (10 mg)by mouth daily (with dinner) ??? MELATONIN PO Take 5 mg by mouth nightly as needed ??? multivitamin, therapeutic with minerals (MULTI-VITAMIN) TABS Take 1 tablet by mouth daily ??? Costilla-3 Fatty Acids (OMEGA-3 FISH OIL PO) Take [...] cardiovascular risks for perioperative complications such as (W[place], PE, VFib and 3?? AV Block): No [...] evaluation report is provided to requesting physician. LOPER PROGRAMMER ANALYST documented in this encounter Consult Notes Elle [...] Surgical History Procedure Date ??? Colostomy ??? [place] filter ??? Resection abdominal perineal Social History: [...] Past Week at Unknown Yes Reported, Patient Costilla-3 Fatty Acids (OMEGA-3 FISH OIL PO) Take [...] medial unicondylar arthroplasty. MD Lisa HARLEY PA-C LOPER PROGRAMMER ANALYST documented in this encounter Nursing Notes Mell Alejandro - 08/20/2013 10:27 AM CST Assumed care of patient for 15 minute break of Janet Malik RN. LOPER PROGRAMMER ANALYST Adolph Short RN - 08/20/2013 8:23 AM CST Irrisept solution with .05% chlorhexidine arlene. X 1000ml used to irrigate right knee prior to cementing implants. RAJEEV LOPER PROGRAMMER ANALYST Mayra Weir RN - 08/20/2013 7:24 AM CST Pre op, pt questioning about previous DVT in surgical leg. Was cleared by both Dr. Haque and . Order for surgery clarified, pt only have a partial knee replacement. Ok to proceed with surgery. LOPER PROGRAMMER ANALYST Nguyen Suarez RN - 08/04/2013 3:21 PM CST Nasal swab done and sent to lab for MRSA/MSSA culture. Patient would like to be contacted if positive or negative. Instructions provided if positive. Exidine give. Showering instructions given. LOPER PROGRAMMER ANALYST documented in this encounter Miscellaneous Notes Plan of Care - Nuzhat Kirk RN - 08/21/2013 2:25 PM CST Problem: IP GENERAL POC-ADULT,OB,BEHAVIORAL FVCPM Goal: Individualization/Patient-Specific Goal (Adult,OB,Behavioral The patient and/or their accounting representative will achieve their patient-specific goals related to the plan of care. The patient-specific goals include: Outcome: Adequate for Discharge Date Met: 08/21/13 [facility] Orthopedic Nursing Progress Note Assessment Assessment: BP [...] included narcotic pain meds-- Oxycontin and Percocet LOPER PROGRAMMER ANALYST Plan of Care - Yaritza Blue PT - 08/21/2013 10:19 AM CST Problem: General Rehab Plan of Care Goal: Physical Therapy Goals The patient and/or their accounting representative will achieve their patient-specific goals related [...] strengthening and ROM to maximize independent function.. LOPER PROGRAMMER ANALYST Plan of Care - Arminda Whitlock OT - 08/21/2013 9:05 AM CST Problem: General Rehab Plan of Care Goal: Occupational Therapy Goals The patient and/or their accounting representative will achieve their patient-specific goals related [...] Rationale/Recommendations: improved safety and independence with ADL/IADLs. LOPER PROGRAMMER ANALYST Plan of Care - Olivia Clemente RN - 08/21/2013 6:06 AM CST Problem: IP GENERAL POC-ADULT,OB,BEHAVIORAL FVCPM Goal: Individualization/Patient-Specific Goal (Adult,OB,Behavioral The patient and/or their accounting representative will achieve their patient-specific goals related [...] DC home today. Will continue to monitor. LOPER PROGRAMMER ANALYST Plan of Care - Ollie oLpez RN - 08/21/2013 12:10 AM CST Problem: IP GENERAL POC-ADULT,OB,BEHAVIORAL FVCPM Goal: Individualization/Patient-Specific Goal (Adult,OB,Behavioral The patient and/or their accounting representative will achieve their patient-specific goals related [...] up or out of bed without assistance. LOPER PROGRAMMER ANALYST Plan of Care - Marichuy Jean, PT - 08/20/2013 5:31 PM CST Problem: General Rehab Plan of Care Goal: Physical Therapy Goals The patient and/or their accounting representative will achieve their patient-specific goals related [...] discharge tomorrow morning. Has crutches here, has [facility] home care set up for therapies already. LOPER PROGRAMMER ANALYST Plan of Care - Karime Quinn, RN - 08/20/2013 2:22 PM CST Problem: IP GENERAL POC-ADULT,OB,BEHAVIORAL FVCPM Goal: Individualization/Patient-Specific Goal (Adult,OB,Behavioral The patient and/or their accounting representative will achieve their patient-specific goals related to the plan of care. The patient-specific goals include: Outcome: Improving Arrived from PACU at 12:45. Awake and alert. Dressing to leg D&I, immobiilizer in place. Has hemovac. Lungs clear, instructed IS. Given Oxycodone and Vistaril for pain control at 14:10 Botello removed in PACU , due to void. CPM started. LOPER PROGRAMMER ANALYST Brief Op Note - Jose Fonseca MD - 08/20/2013 9:52 AM CST [facility] Brief Operative Note Pre-operative diagnosis: degenerative [...] specimens in log * Findings: See dictation LOPER PROGRAMMER ANALYST Op Note - Jose Fonseca MD - 08/20/2013 9:47 AM CST PREOPERATIVE DIAGNOSIS: Right knee medial compartment degenerative joint disease. POSTOPERATIVE DIAGNOSIS: Right knee medial compartment degenerative joint disease. PROCEDURE: Unicompartmental arthroplasty, right knee medial compartment, using the Apoorva UKA system. SURGEON: Jose Fonseca MD SINGE WINDER: Clarence Patel PA-C INDICATIONS: Mr. Anita Christine [...] his medial compartment. 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 Ihad a long discussion with him regarding [...] proceed with the unicompartmental kneearthroplasty with a Moment.Us UKA system, and so we made our [...] It sized to fit a size 5 Dazey Triathlon UKA component. We found that with [...] EM#[id number] Name: ANITA CHRISTINE MRN: [id number] Account: [id number] : 1955 Procedure Date: 08/20/2013 Document: [id number] LOPER PROGRAMMER ANALYST Pharmacy-Admission Medication History - Audrey Joseph RPH - 08/10/2013 6:41 PM CST Pharmacy reviewed prior to admission med list from pre-admitting rn. LOPER PROGRAMMER ANALYST documented in this encounter Plan of Treatment Upcoming Encounters Date Type Specialty Care Team Description 05/20/2022 Lab Lab documented as of this encounter Procedures Procedure Name Priority Date/Time Associated Comments Diagnosis US LOWER EXTREMITY Routine 08/21/2013 9:53 Result s for this VENOUS DUPLEX RIGHT AM DEVELOPER PROGRAMMER ANALYST procedur e are in the results section. HEMOGLOBIN Routine 08/21/2013 5:55 Results for this AM DEVELOPER PROGRAMMER ANALYST procedure are i n the results section. GLUCOSE Routine 08/21/2013 5:55 Results for this AM DEVELOPER PROGRAMMER ANALYST procedure are i n the results section. GLUCOSE BY METER Routine 08/20/2013 8:36 Results for this PM DEVELOPER PROGRAMMER ANALYST procedure are i n the results section. GLUCOSE BY METER Routine 08/20/2013 4:42 Results for this PM DEVELOPER PROGRAMMER ANALYST procedure are i n the results section. XR KNEE PORT RIGHT 1/ STAT 08/20/2013 10:55 R esults for this VIEWS AM DEVELOPER PROGRAMMER ANALYST procedure are i n the results section. ARTHROPLASTY, KNEE, 08/20/2013 7:30 Cubital tunnel UNICOMPARTMENTAL AM DEVELOPER PROGRAMMER ANALYST syndrom, degenerative joint disease Special Needs Joint class 08/12/13. KRISHNAMURTHY to swab 08/04/2013 6'0, 238# stated POTASSIUM STAT 08/20/2013 6:20 AM DEVELOPER PROGRAMMER ANALYST Resul ts for this procedure are in the results sec tion. PLATELET COUNT Routine 08/20/2013 6:20 AM DEVELOPER PROGRAMMER ANALYST Res ults for this procedure are in the results sec tion. HEMOGLOBIN STAT 08/20/2013 6:20 AM DEVELOPER PROGRAMMER ANALYST Resul ts for this procedure are in the results sec tion. CREATININE STAT 08/20/2013 6:20 AM DEVELOPER PROGRAMMER ANALYST Resul ts for this procedure are in the results sec tion. GLUCOSE BY METER Routine 08/20/2013 6:03 AM DEVELOPER PROGRAMMER ANALYST R esults for this procedure are in the results sec tion. documented in this encounter Results US Lower Extremity Venous Duplex Right (08/21/2013 9:53 AM DEVELOPER PROGRAMMER ANALYST) Anatomical Region Laterality Modality Lower Extremity Ultrasound Specimen (Source) Anatomical Location Collection Method / Collectio n Time Received Time / Laterality Volume Impressions 08/21/2013 9:59 AM DEVELOPER PROGRAMMER ANALYST IMPRESSION: 1. Stable nonocclusive thrombus in the s uperficial femoral and popliteal veins which is unchanged from 06/02/09. 2. No evidence for acute deep venous thr ombosis. 3. Fluid collection in the popliteal spa ce which may be postoperative fluid or popliteal cyst. LENARD MITCHELL MD Narrative 08/21/2013 9:59 AM DEVELOPER PROGRAMMER ANALYST US LOWER EXTREMITY VENOUS DUPLEX RIGHT ??08/21/2013 [...] US ORDERABLES (ABNORMAL) Hemoglobin (08/21/2013 5:55 AM DEVELOPER PROGRAMMER ANALYST) P athologist Signature Hemoglobin 12.9 (L) 13.3 - 17.7 [place] g/dL [facility] Specimen Anatomical Collection Method Collection Time Receive d Time (Source) Location / / Volume Laterality Blood specimen 08/21/2013 5:55 AM 014 6:45 (specimen) DEVELOPER PROGRAMMER ANALYST AM DEVELOPER PROGRAMMER ANALYST Jose Fonseca MD LAB - BLOOD ORDERABLES Performing Organization Address City/[facility]/ZIP Code Phon e Number [facility] [address] [place], [place] [address] [facility] Glucose (08/21/2013 5:55 AM DEVELOPER PROGRAMMER ANALYST) athologist Signature Glucose 91 60 - 99 [facility] mg/dL [facility] Specimen Anatomical Collection Method Collection Time Receive d Time (Source) Location / / Volume Laterality Blood specimen 08/21/2013 5:55 AM 014 6:45 (specimen) DEVELOPER PROGRAMMER ANALYST AM DEVELOPER PROGRAMMER ANALYST Horacio Geller MD LAB - BLOOD ORDERABLES Performing Organization Address [facility] Code Phon e Number [facility] [address] [place], [place] [address] [facility] (ABNORMAL) Glucose by meter (08/20/2013 8:36 PM DEVELOPER PROGRAMMER ANALYST) athologist Signature Glucose 112 (H) 60 - 99 POINT OF CARE mg/dL TEST, GLUCOSE Specimen Anatomical Collection Method Collection Time Receive d Time (Source) Location / / Volume Laterality 08/20/2013 8:36 PM 4 8:40 DEVELOPER PROGRAMMER ANALYST PM DEVELOPER PROGRAMMER ANALYST Horacio LILLY - BEAKER POCT Performing Organization Address [facility]/ZIP Code Phon e Number F[facility] POINT OF CARE TEST, GLUCOSE POINT OF CARE TEST, GLUCOSE (ABNORMAL) Glucose by meter (08/20/2013 4:42 PM DEVELOPER PROGRAMMER ANALYST) P athologist Signature Glucose 114 (H) 60 - 99 POINT OF CARE mg/dL TEST, GLUCOSE Specimen Anatomical Collection Method Collection Time Receive d Time (Source) Location / / Volume Laterality 08/20/2013 4:42 PM 4 4:45 DEVELOPER PROGRAMMER ANALYST PM DEVELOPER PROGRAMMER ANALYST Horacio Geller MD LAB - BEROMARIO POCT Performing Organization Address [facility]/ZIP [facility] Phon e Number [facility] POINT OF CARE TEST, GLUCOSE POINT OF CARE TEST, GLUCOSE XR Knee Port Right 1/2 Views (08/20/2013 10:55 AM DEVELOPER PROGRAMMER ANALYST) Anatomical Region Laterality Modality Right Knee Right Computed Radiography Specimen (Source) Anatomical Location Collection Method / Collectio n Time Received Time / Laterality Volume Impressions 08/20/2013 12:30 PM DEVELOPER PROGRAMMER ANALYST IMPRESSION: Right medial unicondylar arthroplasty. ?? LAY COOPER MD Narrative 08/20/2013 12:30 PM DEVELOPER PROGRAMMER ANALYST KNEE PORTABLE ONE TO TWO VIEWS August [...] CAREN IZAGUIRRE Platelet count (08/20/2013 6:20 AM DEVELOPER PROGRAMMER ANALYST) athologist Signature Platelet Count 171 150 - 450 [place] [id number] Specimen Anatomical Collection Method Collection Time Receive d Time (Source) Location / / Volume Laterality 08/20/2013 6:20 AM 201 4 6:33 DEVELOPER PROGRAMMER ANALYST AM DEVELOPER PROGRAMMER ANALYST Morgan Waggoner MD LAB - BLOOD ORDERABLES Performing Organization Address City/State/ZIP Code Phon e Number [facility] [address] [place], [place] [address] [facility] Potassium (08/20/2013 6:20 AM DEVELOPER PROGRAMMER ANALYST) P athologist Signature Potassium 4.0 3.4 - 5.3 [facility] mmol/[facility] Specimen Anatomical Collection Method Collection Time Receive d Time (Source) Location / / Volume Laterality Blood specimen 08/20/2013 6:20 AM 014 6:33 (specimen) DEVELOPER PROGRAMMER ANALYST AM DEVELOPER PROGRAMMER ANALYST Morgan aWggoner MD LAB - BLOOD ORDERABLES Performing Organization Address City/[facility]/ZIP Code Phon e Number [facility] [address] [place], [place] [address] [facility] Creatinine (08/20/2013 6:20 AM DEVELOPER PROGRAMMER ANALYST) athologist Signature Creatinine 0.89 0.66 - [facility] 1.25 mg/dL [facility] GFR Estimate 89 >60 [place] mL/min/1.[address] LAB GFR Estimate If >90 >60 [place] Black mL/min/[address] [place] [address] LAB Specimen Anatomical Collection Method Collection Time Receive d Time (Source) Location / / Volume Laterality Blood specimen 08/20/2013 6:20 AM 014 6:33 (specimen) DEVELOPER PROGRAMMER ANALYST AM DEVELOPER PROGRAMMER ANALYST Morgan Waggoner MD LAB - BLOOD ORDERABLES Performing Organization Address [facility]/ZIP Code [facility] e Number [facility] [address] [place], [place] [phone] [place] [address] LAB Hemoglobin (08/20/2013 6:20 AM DEVELOPER PROGRAMMER ANALYST) athologist Signature Hemoglobin 14.5 13.3 - 17.7 [facility] g/dL [facility] Specimen Anatomical Collection Method Collection Time Receive d Time (Source) Location / / Volume Laterality Blood specimen 08/20/2013 6:20 AM 014 6:33 (specimen) DEVELOPER PROGRAMMER ANALYST AM DEVELOPER PROGRAMMER ANALYST Morgan Waggoner MD LAB - BLOOD ORDERABLES Performing Organization Address City/[facility]/ZIP [facility] jovan [facility] [address] [place], [place] [address] [facility] (ABNORMAL) Glucose by meter (08/20/2013 6:03 AM DEVELOPER PROGRAMMER ANALYST) athologist Signature Glucose 107 (H) 60 - 99 POINT OF CARE mg/dL TEST, GLUCOSE Specimen Anatomical Collection Method Collection Time Receive d Time (Source) Location / / Volume Laterality 08/20/2013 6:03 AM 4 6:05 DEVELOPER PROGRAMMER ANALYST AM DEVELOPER PROGRAMMER ANALYST Horacio Geller MD LAB - BEAKER POCT [...] 5:00 PM 1,000 mLs 125 mL/hr solution DEVELOPER PROGRAMMER ANALYST at 125 mL/hr, Intravenous, CONTINUOUS, Change to saline lock when PO well tolerated., Post-procedure, Starting on Fri08/20/13 at 1300, Until 08/21/13 at 1628 New Bag 08/20/2013 1:11 PM DEVELOPER PROGRAMMER ANALYST 1,000 mLs 125 mL/hr acetaminophen (OFIRMEV) 10 [...] tablet 650 mg Given 08/21/2013 12:43 PM DEVELOPER PROGRAMMER ANALYST 650 mg 650 mg, Oral, EVERY 6 HOURS, First dose on Fri08/20/13 at 1800, Maximum acetaminophen dose from all sources = 75 mg/kg/day not to exceed 4 grams/day., Post-procedure Given 08/21/2013 5:59 AM DEVELOPER PROGRAMMER ANALYST 650 mg Given 08/21/2013 12:32 AM DEVELOPER PROGRAMMER ANALYST 650 mg ceFAZolin (ANCEF) IVPB 2 g (pre-mix) New Bag 08/21/2013 1:32 AM DEVELOPER PROGRAMMER ANALYST 2 g 200 mL/hr Routine, 2 g, Intravenous, EVERY 8 HOURS, First dose on Fri08/20/13 at 1800, For 2 doses, First post-op dose due 8 hours after intra-op dose, see eMAR. , Indications: Perioperative Pharmacoprophylaxis, Post-procedure New Bag 08/20/2013 7:03 PM DEVELOPER PROGRAMMER ANALYST 2 g 200 mL/hr celecoxib (celeBREX) capsule 200 mg Given 08/21/2013 8:28 AM DEVELOPER PROGRAMMER ANALYST 200 mg 200 mg, Oral, 2 TIMES DAILY, First dose on 08/21/13 at 0900, For 4 doses, For patients less than 65 years old. Do not give until Ketorolac dosing is complete or if ibuprofen ordered., Post-procedure celecoxib (celeBREX) capsule 400 mg Given 08/20/2013 6:38 AM DEVELOPER PROGRAMMER ANALYST 400 mg 400 mg, Oral, ONCE, On Fri08/20/13 at 0615, For 1 dose, Pre-procedure cyanocolbalamin (vitamin B-12) tablet 500 Given 08/21/2013 8:29 AM DEVELOPER PROGRAMMER ANALYST 500 mcg mcg 500 mcg, Oral, DAILY, First dose on 08/21/13 at 0900, Post-procedure enoxaparin (LOVENOX) injection 40 mg Given 08/21/2013 8:28 AM DEVELOPER PROGRAMMER ANALYST 40 mg 40 mg, Subcutaneous, EVERY 24 [...] injection 25-50 mcg Given 08/20/2013 10:34 AM DEVELOPER PROGRAMMER ANALYST 50 mcg 25-50 mcg, Intravenous, EVERY 2 MIN PRN, other, acute pain, Starting on Fri08/20/13 at 0948, MAX cumulative dose = 250 mcg. Use Fentanyl initially, as a short acting agent for acute pain control. If insufficient, or a longer acting agent is needed, begin Morphine or Hydromorphone if ordered., PACU Given 08/20/2013 10:18 AM DEVELOPER PROGRAMMER ANALYST 50 mcg fluticasone (FLOVENT DISKUS) 250 mcg/puff Given 08/21/2013 8:33 AM DEVELOPER PROGRAMMER ANALYST 250 mcg inhaler 250 mcg 250 mcg (1 puff), Inhalation, 2 TIMES DAILY, First dose on Fri08/20/13 at 2100, Auto sub Flovent diskus for Qvar , Post-procedure gabapentin (NEURONTIN) tablet 600 mg Given 08/20/2013 6:37 AM DEVELOPER PROGRAMMER ANALYST 600 mg 600 mg, Oral, ONCE, On Fri08/20/13 at 0615, For 1 dose, Pre-procedure HYDROmorphone (DILAUDID) injection 0.2 m g Given 08/20/2013 4:46 PM DEVELOPER PROGRAMMER ANALYST 0.2 mg 0.2 mg, Intravenous, EVERY 30 MIN PRN, moderate to severe pain, Starting on Fri08/20/13 at 1255, Post-procedure HYDROmorphone (DILAUDID) injection 0.3-0.5 Given 08/20/2013 11:03 AM DEVELOPER PROGRAMMER ANALYST 0.5 mg mg 0.3-0.5 mg, Intravenous, EVERY 5 MIN PRN, moderate to severe pain, acute pain. May administer if RR is > 10 , Starting on Fri08/20/13 at 0948, If fentanyl is also ordered, use HYDROmorphone if pain control insufficient with fentanyl or a longer acting agent is needed. Max cumulative dose = 2 mg , PACU Given 08/20/2013 10:24 AM DEVELOPER PROGRAMMER ANALYST 0.5 mg hydrOXYzine (ATARAX) tablet 25 mg Given 08/21/2013 10:19 AM DEVELOPER PROGRAMMER ANALYST 25 mg 25 mg, Oral, 3 TIMES DAILY PRN, other, pain, Starting on Fri08/20/13 at 1255, Post-procedure Given 08/21/2013 4:21 AM DEVELOPER PROGRAMMER ANALYST 25 mg Given 08/20/2013 10:09 PM DEVELOPER PROGRAMMER ANALYST 25 mg ondansetron (ZOFRAN) injection 4 mg Given 08/21/2013 4:20 AM DEVELOPER PROGRAMMER ANALYST 4 mg 4 mg, Intravenous, EVERY 6 HOURS, Administer over 2-5 Minutes, First dose on Fri08/20/13 at 1600, For 4 doses, Post-procedure oxyCODONE (OxyCONTIN) 12 hr tablet 10 mg Given 08/20/2013 6:38 AM DEVELOPER PROGRAMMER ANALYST 10 mg 10 mg, Oral, ONCE, On Fri08/20/13 at 0615, For 1 dose, DO NOT CRUSH., Pre-procedure oxyCODONE (OxyCONTIN) 12 hr tablet 20 mg Given 08/21/2013 8:28 AM DEVELOPER PROGRAMMER ANALYST 20 mg 20 mg, Oral, EVERY 12 HOURS, First dose on Fri08/20/13 at 2000, Post-procedure Given 08/20/2013 8:06 PM DEVELOPER PROGRAMMER ANALYST 20 mg oxyCODONE (ROXICODONE) immediate release Given 08/21/2013 12:43 PM DEVELOPER PROGRAMMER ANALYST 10 mg tablet 5-10 mg 5-10 mg, Oral, EVERY 3 HOURS PRN, moderate to severe pain, Starting on Fri08/20/13 at 1255, Post-procedure Given 08/21/2013 10:04 AM DEVELOPER PROGRAMMER ANALYST 10 mg Given 08/21/2013 7:07 AM DEVELOPER PROGRAMMER ANALYST 10 mg ranitidine (ZANTAC) tablet 150 mg Given 08/21/2013 8:28 AM DEVELOPER PROGRAMMER ANALYST 150 mg 150 mg, Oral, 2 TIMES [...] flush 3 mL Given 08/21/2013 4:20 AM DEVELOPER PROGRAMMER ANALYST 3 mLs 3 mL, Intravenous, EVERY 8 HOURS, First dose on Fri08/20/13 at 1300, to lock peripheral IV dormant line. Also Ordered Q1H PRN, Post-procedure sodium chloride 0.9 % BOLUS New Bag 08/20/2013 1:11 PM DEVELOPER PROGRAMMER ANALYST 1,000 m Ls 500 mL/hr 1,000 mL Intravenous, 1,000 mL, ONCE, at 500 mL/hr, Administer over 2 Hours, On Fri08/20/13 at 1300, For 1 dose, Give over 2 hours as soon as pt arrives on floor, Post-procedure testosterone (ANDROGEL 1.62% PUMP) GEL 40.5 Given 06/2013 10:06 AM DEVELOPER PROGRAMMER ANALYST 40.5 mg mg 40.5 mg (2 pump), Topical, DAILY, First dose on Fri08/20/13 at 1800, Patient will need to bring in own home med supply if wants to use in hospital, Post-procedure Given 08/20/2013 7:23 PM DEVELOPER PROGRAMMER ANALYST 40.5 mg documented in this encounter Active and Recently Administered Medications Times are shown in DEVELOPER PROGRAMMER ANALYST. Scheduled Medication Order 08/19/2013 08/20/2013 08/21/2013 acetaminophen [...] 0733 (Given - Provider: Jovita Figueroa APRN COMPLIANCE ASSOCIATE)1001 (Given - Provider: Jovita Figueroa APRN COMPLIANCE ASSOCIATE) 3 g, Intravenous, PRE-OP/PRE-PROCEDURE, For 1 dose, [...] self) 1006 (Given - Provider: Nolvia carreon, CITY PLANNER) 2 pump = 40.5 mg, Topical, DAILY, [...] Intra-procedure documented in this encounter Care Teams Hand Cloth Examiner Relationship Specialty Start Date End Date Ian Kendrick MD PCP - General 11/19/07 02/21/14 [facility] [address] [place] [address] documented as of this encounter
--- OUTSIDE RECORDS SUMMARY | 2022-05-15 23:04 | XMS_ITS | Encounter Summary ---
:1955 Author Organization [place] Address [address] [place] [address] Care Team Providers Name Role Phone Froylan Louise MD Primary Care Provider Unavailable Froylan Louise MD Unavailable Unavailable Froylan Louise MD Unavailable Unavailable Reason for Visit Reason Onset Date Comments Refill Request 10/03/2014 Encounter Details Date Type Department Care Team Description 10/03/2014 Refill [facility] Froylan Louise Ra, MD Refill Request [address] [address] Social History Tobacco Use [...] you attend zoroastrian or Patient refused 2020 bahai services? Do [...] Dunaway - 10/03/2014 3:55 PM CDT Ph. [phone] Patient questioning if he can take 2 tabs and a refill cyclobenzaprine (FLEXERIL) 10 MG tablet 30 tablet 1 05/27/2014 -- Sig: Take 1 tablet (10 mg) by mouth 3 times daily as needed for muscle spasms Class: E-Prescribe Route: Oral Order: [id number] OV 05/27/2014 Irma Dunaway Urban Designer documented in this encounter Plan of Treatment Upcoming Encounters Date Type Specialty Care Team Description 05/20/2022 Lab Lab documented as of this encounter Visit Diagnoses Diagnosis Cramp of limb - Primary documented in this encounter Care Teams Private Pilot Relationship Specialty Start Date End Date Froylan Louise MD PCP - General Family Practice 02/22/14 Froylan Louise MD PCP - Assigned PCP 03/13/14 08/25/18 Froylan Louise MD Assigned PCP 03/13/14 2 documented as of this encounter
--- OUTSIDE RECORDS SUMMARY | 2022-05-15 23:04 | XMS_ITS | Encounter Summary ---
:1955 Author Organization [place] Address [address] [place] [address] Care Team Providers Name Role Phone Froylna Louise MD Primary Care Provider Unavailable Froylan Louise MD Unavailable Unavailable Froylan Louise MD Unavailable Unavailable Encounter Details Date Type Department Care Team Description 06/18/2014 Orders Only [facility] Hyp erlipidemia LDL goal <160 [place] [place] [address] [place] [address] Social History Tobacco Use Types [...] you attend religious or Patient refused 2020 scientology services? Do [...] goal Results for this DIRECT LDL PANEL PHOTO PRINTER <160 procedure a re in the results section. documented in this encounter Results (ABNORMAL) Lipid panel reflex to direct LDL (06/18/2014 8:03 AM PHOTO PRINTER) P athologist Signature Cholesterol 197 <200 mg/dL [facility] Comment: LDL Cholesterol is the primary guide to therapy. The NCEP recommends further evaluation of: patients with cholesterol greater than 200 mg/dL if additional risk facto rs are present, cholesterol greater than 240 mg/dL, triglycerides greater than 1 50 mg/dL, or HDL less than 40 mg/dL. Triglycerides 211 (H) 0 - 150 mg/dL [facility] Comment: Fasting specimen HDL Cholesterol 45 >40 mg/dL [facility] LDL Cholesterol Calculated 110 0 - 129 mg/dL [facility] Comment: LDL Cholesterol is the primary guide to therapy: LDL-cholesterol goal in high risk patients is <100 mg/dL and in very high risk patients is <70 mg/dL. VLDL-Cholesterol 42 (H) 0 - 30 mg/dL [facility] Cholesterol/HDL Ratio 4.4 0.0 - 5.0 [facility] Specimen Anatomical Collection Method Collection Time Receive d Time (Source) Location / / Volume Laterality Blood specimen 06/18/2014 8:03 AM 014 8:04 (specimen) PHOTO PRINTER AM PHOTO PRINTER Froylan Louise MD LAB - BLOOD ORDERABLES Performing Organization Address City/State/ZIP Code Phon e Number [facility] [place] [address] [place] [address] [facility] [address] [place], [place] [address] documented in this encounter Visit Diagnoses Diagnosis Hyperlipidemia LDL goal <160 Other and unspecified hyperlipidemia documented in this encounter Care Teams Nursing Program Chair Relationship Specialty Start Date End Date Froylan Louise MD PCP - General Family Practice 02/22/14 Froylan Louise MD PCP - Assigned PCP 03/13/14 08/25/18 Froylan Louise MD Assigned PCP 03/13/14 2 documented as of this encounter
--- OUTSIDE RECORDS SUMMARY | 2022-05-15 23:04 | XMS_ITS | Encounter Summary ---
:1955 Author Organization [facility] Address [address] [place] [address] Care Team Providers Name Role Phone Ian Kendrick MD Primary Care Provider [phone] Reason for Visit Reason Onset Date Comments Refill Request 10/27/2013 HYDROcodone-acetamin ophen (NORCO) 5-325 MG Encounter Details Date Type Department Care Team Description 10/27/2013 Telephone [facility] Ian Kendrick Refill Request Clinic Chhaya Daniels MD (HYDROcodone-acetamino [address] [facility] phen (NORCO) 5-325 MG) [place], [place] [address] [facility] [address] [facility] [phone] [place] [address] (Wo rk) Social History Tobacco [...] containing 4 or more times a w nome 05/25/2021 alcohol? How many drinks containing alcohol [...] you attend spiritism or Patient refused 2020 synagogue services? Do [...] rx approved faxed to [facility]. Irma Dunaway [address] Change Roof Bolter Telephone Encounter - Ian Kendrick MD - 10/27/2013 3:54 PM CDT Hard copy printed and signed. Please see nurse's inbox to fax. If patient needs further narcotic prescriptions, he will need an office visit for follow up. Telephone Encounter - Irma Dunaway - 10/27/2013 3:33 PM CDT Ph. [phone] HYDROcodone-acetaminophen (NORCO) 5-325 MG per tablet 30 tablet 0 07/07/2013 -- Sig: Take 1 tablet bymouth every 6 hours as needed Class: Local Print Route: Oral OV 07/07/[address] Back [address]ma Dunaway Place Change Roof Bolter documented in this encounter Plan of Treatment Upcoming Encounters Date Type Specialty Care Team Description 05/20/2022 Lab Lab documented as of this encounter Visit Diagnoses Diagnosis Cervical radiculopathy Brachial neuritis or radiculitis nos documented in this encounter Care Teams Lathe Machine Operator Relationship Specialty Start Date End Date Ian Kendrick MD PCP - General 11/19/07 02/21/14 [facility] [address] [place] [address] documented as of this encounter
--- OUTSIDE RECORDS SUMMARY | 2022-05-15 23:04 | XMS_ITS | Encounter Summary ---
:1955 Author Organization [place] Address [address] [place] [address] Care Team Providers Name Role Phone Froylan Louise MD Primary Care Provider Unavailable Froylan Louise MD Unavailable Unavailable Froylan Louise MD Unavailable Unavailable Reason for Visit Reason Comments Shoulder left Encounter Details Date Type Department Care Team Description 07/19/2014 Office Visit [facility] Dileep Kendrick Tendinop [facility] [place] Garcia cuff, unspecified [place] [address] laterality (Primary Dx) [address] [place], [place] [address] [address] [place] [address] [phone] Social History Tobacco Use Types Packs/Day Years [...] you attend quaker or Patient refused 2020 adventist services? 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 Presentation [...] and range of motion. Dileep Kendrick MD, [facility] K AND WATCH HANDS MOUNTER documented in this encounter Plan of Treatment Upcoming Encounters Date Type Specialty Care Team Description 05/20/2022 Lab Lab documented as of this encounter Procedures Procedure Name Priority Date/Time Associated Diagnosis Comme nts HC DRAIN/INJ MAJOR Routine 07/19/2014 10:19 PM Tendinopathy of rotator JOINT/BURSA W/O US CLOCK AND WATCH HANDS MOUNTER cuff, unspecified laterality documented in this encounter Visit Diagnoses Diagnosis Tendinopathy of rotator cuff, unspecifie d laterality - Primary documented in this encounter Care Teams Multi Site Leasing Consultant Relationship Specialty Start Date End Date Froylan Louise MD PCP - General Family Practice 02/22/14 Froylan Louise MD PCP - Assigned PCP 03/13/14 08/25/18 Froylan Louise MD Assigned PCP 03/13/14 2 documented as of this encounter
--- OUTSIDE RECORDS SUMMARY | 2022-05-15 23:04 | XMS_ITS | Encounter Summary ---
:1955 Author Organization [facility] Address [address] [place] [address] Care Team Providers Name Role Phone Froylan Louise MD Primary Care Provider Unavailable Reason for Visit Reason Comments Recheck Medication Encounter Details Date Type Department Care Team Description 03/04/2014 Office Visit [facility] Froylan Louise Mild pers istent asthma (Primary Dx); Clinic Chhaya Dubose MD Hyperlipidemia LDL goal <160 ; [address] [facility] [place]; [place], [place]; [address] H/O ulcerative colitis [phone] Social History Tobacco Use Types Packs/Day Years [...] you attend synagogue or Patient refused 2020 lutheran services? Do [...] Body Mass Index 32.78 08/20/2013 5:53 AM BRASS CUTTER documented in this encounter Progress Notes Froylan [...] Positive ??? Mild persistent asthma ??? Health Retirement ? ? Hyperlipidemia LDL goal <160 ??? Personal history of DVT (deep vein thrombosis) ??? Status post unicompartmental knee replacement, right Past Surgical History Procedure Laterality Date ??? Colostomy ??? [place] filter ??? Resection abdominal perineal ??? Arthroplasty [...] documented in this encounter Care Teams Airport Baggage Screener Relationship Specialty Start Date End Date Froylan Louise MD PCP - General Family Practice 02/22/14 documented as of this encounter
--- OUTSIDE RECORDS SUMMARY | 2022-05-15 23:04 | XMS_ITS | Encounter Summary ---
:1955 Author Organization [facility] Address [address] [place] [address] Care Team Providers Name Role Phone Froylan Louise MD Primary Care Provider Unavailable Reason for Visit Reason Onset Date Comments Refill Request 03/03/2014 atrovent Encounter Details Date Type Department Care Team Description 03/03/2014 Refill [facility] Froylan Louise Ra, Refill Request Chhaya VILLASEÑOR (atrovent) [address] [place] [address] Social History Tobacco Use [...] containing 4 or more times a w [place]osh[place]-paiute 05/25/2021 alcohol? How many drinks containing alcohol [...] you attend zoroastrian or Patient refused 2020 anabaptism services? Do [...] asthma documented in this encounter Care Teams Machining Manager Relationship Specialty Start Date End Date Froylan Louise MD PCP - General Family Practice 02/22/14 documented as of this encounter
--- OUTSIDE RECORDS SUMMARY | 2022-05-15 23:04 | XMS_ITS | Encounter Summary ---
:1955 Author Organization [place] Address [address] [place] [address] Care Team Providers Name Role Phone Froylan Louise MD Primary Care Provider Unavailable Froylan Louise MD Unavailable Unavailable Froylan Louise MD Unavailable Unavailable Reason for Visit Reason Onset Date Comments Shoulder Pain 08/19/2014 Encounter Details Date Type Department Care Team Description 08/19/2014 Telephone [facility] Ronan Phan DO [facility]er [facility] [place] [address] [place] [address] [address] [address] [place] [address] Social History Tobacco Use Types [...] you attend moravian or Patient refused 2020 episcopal services? Do [...] injections about 4 weeks ago. 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 Is very painful and wanting to know if Dr. Kendrick can seehim today if that is possible. Phone call to patient and informed that Dr. Kendrick is no longer with [place] and that he would need to establish care with Dr. Sifuentes. He does not want to wait until next week and is going to see if he can get in with Dr. Fonseca tomorrow. He previously did his knee surgery. He will call us back next week if needed. Ana Louis RN RVISOR FELLING BUCKING documented in this encounter Plan of Treatment Upcoming Encounters Date Type Specialty Care Team Description 05/20/2022 Lab Lab documented as of this encounter Visit Diagnoses Not on filedocumented in this encounter Care Teams Contracts Director Relationship Specialty Start Date End Date Froylan Louise MD PCP - General Family Practice 02/22/14 Froylan Louise MD PCP - Assigned PCP 03/13/14 08/25/18 Froylan Louise MD Assigned PCP 03/13/14 2 documented as of this encounter
--- OUTSIDE RECORDS SUMMARY | 2022-05-15 23:04 | XMS_ITS | Encounter Summary ---
:1955 Author Organization [facility] Address [address] [place] [address] Care Team Providers Name Role Phone Froylan Louise MD Primary Care Provider Unavailable Froylan Louise MD Unavailable Unavailable Froylan Louise MD Unavailable Unavailable Reason for Visit Reason Onset Date Comments Results 10/11/2014 Encounter Details Date Type Department Care Team Description 10/11/2014 Telephone [facility] Froylan Louise Ra, MD Results [address] [address] Social History Tobacco [...] you attend uatsdin or Patient refused 2020 confucianism services? Do [...] that the result notes were sent to [facility]. Reviewed the notes and discussed at great length how to reduce fats, carbs, and eating a healthier diet. Directed him to the [place] [employer] and [place] [employer] for tips on how to prepare [...] on filedocumented in this encounter Care Teams Judicial Registrar Relationship Specialty Start Date End Date Froylan Louise MD PCP - General Family Practice 02/22/14 Froylan Louise MD PCP - Assigned PCP 03/13/14 08/25/18 Froylan Louise MD Assigned PCP 03/13/14 2 documented as of this encounter
--- OUTSIDE RECORDS SUMMARY | 2022-05-15 23:04 | XMS_ITS | Encounter Summary ---
:1955 Author Organization [place] Address [address] [place] [address] Care Team Providers Name Role Phone Rad Carolina MD Primary Care Provider [phone] Reason for Visit Reason Onset Date Comments Orders 09/15/2013 Encounter Details Date Type Department Care Team Description 09/15/2013 Telephone [facility] [place] [address] [place] [address] [facility] [phone] [facility] [address] (Wo rk) Social History Tobacco Use [...] you attend adventist or Patient refused 2020 taoist services? Do [...] Merritt RN - 09/23/2013 4:16 PM CDT [facility] sent RX back requesting RX and [...] prescription to the pharmacy. ( [id number] [address] [facility] ) Please inform patient. Telephone Encounter - Prabha Salter - 09/15/2013 6:23 PM CDT Pt just had surgery and would like to get a rx for new RINA socks 3/ length. Please call pt when rx is faxed to [facility] if possible, and let pt know if he needs to pickthem up elsewhere. [phone] Thank you! sgr Central Scheduling documented in this encounter Plan of Treatment Upcoming Encounters Date Type Specialty Care Team Description 05/20/2022 Lab Lab documented as of this encounter Visit Diagnoses Diagnosis Personal history of DVT (deep vein throm bosis) - Primary Personal history of venous thrombosis an d embolism Edema leg Edema documented in this encounter Care Teams Tax Intern Relationship Specialty Start Date End Date Rad Carolina MD PCP - General 11/19/07 02/21/14 [facility] [address] [place] [address] documented as of this encounter
--- OUTSIDE RECORDS SUMMARY | 2022-05-15 23:05 | XMS_ITS | Encounter Summary ---
:1955 Author Organization [facility] Address [address] [place] [address] Care Team Providers Name Role Phone Ian Kendrick MD Primary Care Provider [phone] Reason for Visit Reason Onset Date Comments Refill Request 02/23/2013 loperamide (IMODIUM) 2 MG capsule Encounter Details Date Type Department Care Team Description 02/23/2013 Refill [facility] Ian Kendrick Refill Request Clinic Chhaya Daniels MD (loperamide (IMODIUM) 2 [address] [facility] MG capsule) [place], [place] [address] [facility] [address] [facility] [phone] [place] [address] (Wo rk) Social History Tobacco [...] you attend denominational or Patient refused 2020 mandaen services? Do [...] unspecified documented in this encounter Care Teams Medical Collector Relationship Specialty Start Date End Date Ian Kendrick MD PCP - General 11/19/07 02/21/14 [place] [address] [place] [address] documented as of this encounter
--- OUTSIDE RECORDS SUMMARY | 2022-05-15 23:05 | XMS_ITS | Encounter Summary ---
:1955 Author Organization [place] Address [address] [place] [address] Care Team Providers Name Role Phone Ian Kendrick MD Primary Care Provider Froylan Louise MD [...] Type Department Care Team Description 01/29/[address] [facility] Ian Kendrick Refill Request Clinic [place] MD Jeremiah (loperamide ) [address] [place], [place] [address] [facility] [address] [facility] [phone] [place] [address] (Wo rk) Social History Tobacco [...] you attend pentecostalism or Patient refused 2020 mormonism services? Do [...] meds and needs monique..... Thanks! Raisa López Microsoft Solutions Architect documented in this encounter Plan of Treatment [...] documented as of this encounter Care Teams Corporate Legal Assistant Relationship Specialty Start Date End Date Ian Kendrick PCP - General 11/19/07 02/21/14 MD Jeremiah [facility] [address] [place] [address] Froylan Louise MD PCP - General Family Practice 02/22/14 Froylan Louise MD PCP - Assigned PCP 03/13/14 08/25/18 So Dodd MD PCP - General Family Medicine 01/10/22 01/17/22 [address] [place] [address] Froylan Louise MD PCP - General Family Medicine 01/18/22 So Dodd MD PCP - General Family Medicine 02/21/22 [address] [place] [address] Froylan Louise MD Assigned PCP 03/13/14 2 Esthela Corea, RN Personal Advocate & Family Medicine 10/16/20 Liaison (PAL) So Dodd MD Assigned PCP 01/05/22 [address] [place] [address] documented as of this encounter
--- OUTSIDE RECORDS SUMMARY | 2022-05-15 23:05 | XMS_ITS | Encounter Summary ---
:1955 Author Organization [place] Address [address] [place] [address] Care Team Providers Name Role Phone Ian Kendrick MD Primary Care Provider [phone] Reason for Visit Reason Onset Date Comments Other 07/19/2013 testosterone questio ns Encounter Details Date Type Department Care Team Description 07/19/2013 Telephone [facility] Ian Kendrick Other (testosterone Clinic [place] MD Jeremiah questions) [address] [place], [place] [address] [facility] [address] [facility] [phone] [place] [address] (Wo rk) Social History Tobacco [...] you attend hinduism or Patient refused 2020 anabaptism services? Do [...] CST Patient scheduled future appt. Irma Dunaway Orthopedic Radiologic Technologist HOUSE SHIPPER Telephone Encounter - Ian Kendrick MD - 07/20/2013 10:09 AM WAREHOUSE SHIPPER Yes, he does need an appointment prior to starting testosterone replacement therapy. Please have himschedule an appointment at his convenience. HOUSE SHIPPER Telephone Encounter - Esthela Merritt, RN - 07/20/2013 9:48 AM CST Pt is interested in starting Testerone. Does he need appointment to discuss before starting? Please advise? Esthela Merritt, RN HOUSE SHIPPER Telephone Encounter - Jessica Lee - 07/19/2013 2:30 PM CST Pt has questions regarding testosterone shot he got. Please call at [phone]. HOUSE SHIPPER documented in this encounter Plan of Treatment Upcoming Encounters Date Type Specialty Care Team Description 05/20/2022 Lab Lab documented as of this encounter Visit Diagnoses Not on filedocumented in this encounter Care Teams Ice Platform Supervisor Relationship Specialty Start Date End Date Ian Kendrick MD PCP - General 11/19/07 02/21/14 [facility] [address] [place] [address] documented as of this encounter
--- OUTSIDE RECORDS SUMMARY | 2022-05-15 23:05 | XMS_ITS | Encounter Summary ---
:1955 Author Organization [facility] Address [address] [place] [id number] Care Team Providers Name Role Phone Ian Kendrick MD Primary Care Provider [phone] Reason for Visit Auth/Cert Specialty Diagnoses / Procedures Referred By Contact Refer red To Contact Surgery Diagnoses Cubital tunnel syndrom Rh Periop Services Procedures [facility] [address] [place], [place] [address] Phone: Fax: Referral ID Status Reason Start Date Expiration Date Visits Requ ested Visits Authorized [id number] 1 1 Encounter Details Date Type Department Care Team Description 08/20/2013 Surgery [facility] Jose Fonseca Right Knee Uni Ridges PeriOp Servic osbaldo Meyers MD Arthroplasty [address] [place], [place] ORTHOPEDICS [address] [facility] [phone] [address] [place] [address] (Wo rk) Surgery Details Date/Time [...] MD Primary Orthopedics 1 Adams Patel, PAJayC Recreational Vehicle Resort Manager Authorization 1 Special Needs Joint class 08/12/13. [...] containing 4 or more times a w platinum 05/25/2021 alcohol? How many drinks containing alcohol [...] you attend hinduism or Patient refused 2020 shinto services? Do [...] Comments Blood Pressure 143/97 08/20/2013 7:25 AM HAM CURER Pulse - - Temperature 37.1 ??C (98.8 ??F) 08/20/2013 5:53 AM HAM CURER Respiratory Rate 16 08/20/2013 7:25 AM HAM CURER Oxygen Saturation 97% 08/20/2013 7:25 AM HAM CURER Inhaled Oxygen Concentration - - Weight 109.8 kg (242 lb) 08/20/2013 5:53 AM HAM CURER Height 180.3 cm (5' 11) 08/20/2013 5:53 AM HAM CURER Body Mass Index 33.75 08/20/2013 5:53 AM HAM CURER documented in this encounter Medications at Time [...] therapeutic with mouth daily minerals (MULTI-VITAMIN) TABS [place]-3 Fatty Acids Take 1 g by mouth [...] Pain management Discharge planning Jose Fonseca MD [phone] CURER Arminda Whitlock OT - 08/21/2013 8:51 AM [...] Transfer Skill: Sit to Stand Level of Mora: Sit/Stand stand-by assist Physical Assist/Nonphysical Assist: Sit/Stand supervision;verbal cues Transfer Skill: Toilet Transfer Level of Mora: Toilet stand-by assist Physical Assist/Nonphysical Assist: Toilet supervision;verbal cues Balance Balance Comments decreased balance following R knee surgery Lower Body Dressing Level of Mora: Dress Lower Body minimum assist (75% patients effort) Physical Assist/Nonphysical Assist: Dress Lower Body verbal cues Toileting Level of Mora: Toilet stand-by assist Physical Assist/Nonphysical Assist: Toilet [...] Evaluation Time Total Evaluation Time (Minutes) 10 CURER May Rojas, RT - 08/20/2013 9:06 PM CST Pt strongly refused MDI tx. At this time. Will continue to monitor this shift. May Rojas YOUTH PROBATION OFFICER,SEAMER 08/20/2013 CURER Miranda Marichuy Houston, PT - 08/20/2013 5:29 [...] Evaluation Time Total Evaluation Time (Minutes) 15 CURER Sofia Marshall, CINDY - 08/20/2013 4:12 PM CST [facility] Coordinator RN: Updating for Discharge planning, [facility] with Keely at [facility]. Thispt. Is set up for Home Care with with the anticipated DC date of FridayAugust 22. Please get DC ORDERS for HOME PT from Dr. Fonseca on discharge. And Fax these orders to [phone] ([facility]. ) ALSO SEE NOTES from 08/19 from Kelly Marshall RN BSN CTS Care Transitions Team [phone] CURER Kelly Randhawa LSW - 08/19/2013 5:03 PM CST LUIS MIGUEL D: Pre-admission contact from pt for post surgery care discharge planning. Call received from pt who informed Sw of his scheduled surgery and anticipated overnight stay at [facility]. He was inquiring about possibility of [...] SW received information from Keely Sandhu from [facility] informing that she was contacted by surgeon's office with request for home PT services for pt on discharge. She has been in contact with pt, it is anticipated that start of care for pt's home PT will be on Friday. SW will follow-up with pt post-surgery to finalize home care services and assist with other discharge needs that may arise. CURER documented in this encounter H&P Notes Smiley Pak - 08/18/2013 9:29 AM CST This note is for the purpose of making the H&P performed in clinic within the last 30 days available in the hospital surgical encounter. CURER Source Note - Ian Kendrick MD - 08/16/2013 2:23 PM HAM CURER [address] [address] Dept: [phone] PRE-OP EVALUATION: Today's date: 08/16/2013 Anita Christine [...] Time of Surgery/ Procedure: 6:00am Hospital/Surgical Facility: [facility] Primary Physician: Ian Kendrick Type [...] call the 24 hour nurse line at [phone] Patient needs to schedule an appointment I will call the 24 hour scheduling team at [phone] orclinic directly Same day treatment I will call the clinic first, nurse line if after hours, urgent care and expresscare if needed DX V65.8 REPLACED WITH [id number] [facility] (09/28/2012) ??? Personal history of DVT (deep [...] Surgical History Procedure Date ??? Colostomy ??? Woodbine filter ??? Resection abdominal perineal Current Outpatient Prescriptions Medication Sig ??? [START ON 08/20/2013] rivaroxaban ANTICOAGULANT (XARELTO) 10 MG TABS tablet Take 1 tablet (10 mg)by mouth daily (with dinner) ??? MELATONIN PO Take 5 mg by mouth nightly as needed ??? multivitamin, therapeutic with minerals (MULTI-VITAMIN) TABS Take 1 tablet by mouth daily ??? [place]-3 Fatty Acids (OMEGA-3 FISH OIL PO) Take [...] cardiovascular risks for perioperative complications such as (NH, PE, VFib and 3?? AV Block): No [...] evaluation report is provided to requesting physician. CURER documented in this encounter Consult Notes Elle [...] Past Week at Unknown Yes Reported, Patient [place]-3 Fatty Acids (OMEGA-3 FISH OIL PO) Take [...] medial unicondylar arthroplasty. MD Lisa HARLEY PA-C CURER documented in this encounter Nursing Notes Mell Alejandro - 08/20/2013 10:27 AM CST Assumed care of patient for 15 minute break of Janet Malik RN. CURER Adolph Short RN - 08/20/2013 8:23 AM CST Irrisept solution with .05% chlorhexidine arlene. X 1000ml used to irrigate right knee prior to cementing implants. RAJEEV CURER Mayra Weir RN - 08/20/2013 7:24 AM CST Pre op, pt questioning about previous DVT in surgical leg. Was cleared by both Dr. Haque and . Order for surgery clarified, pt only have a partial knee replacement. Ok to proceed with surgery. CURER Nguyen Suarez RN - 08/04/2013 3:21 PM CST Nasal swab done and sent to lab for MRSA/MSSA culture. Patient would like to be contacted if positive or negative. Instructions provided if positive. Exidine give. Showering instructions given. CURER documented in this encounter Miscellaneous Notes Plan of Care - Nuzhat Kirk RN - 08/21/2013 2:25 PM CST Problem: IP GENERAL POC-ADULT,OB,BEHAVIORAL FVCPM Goal: Individualization/Patient-Specific Goal (Adult,OB,Behavioral The patient and/or their premium service representative will achieve their patient-specific goals related to the plan of care. The patient-specific goals include: Outcome: Adequate for Discharge Date Met: 08/21/13 [facility] Orthopedic Nursing Progress Note Assessment [...] included narcotic pain meds-- Oxycontin and Percocet CURER Plan of Care - Yaritza Blue, PT - 08/21/2013 10:19 AM CST Problem: General Rehab Plan of Care Goal: Physical Therapy Goals The patient and/or their premium service representative will achieve their patient-specific goals related [...] strengthening and ROM to maximize independent function.. CURER Plan of Care - Arminda Whitlock OT - 08/21/2013 9:05 AM CST Problem: General Rehab Plan of Care Goal: Occupational Therapy Goals The patient and/or their premium service representative will achieve their patient-specific goals related [...] Rationale/Recommendations: improved safety and independence with ADL/IADLs. CURER Plan of Care - Olivia Clemente RN - 08/21/2013 6:06 AM CST Problem: IP GENERAL POC-ADULT,OB,BEHAVIORAL FVCPM Goal: Individualization/Patient-Specific Goal (Adult,OB,Behavioral The patient and/or their premium service representative will achieve their patient-specific goals related [...] DC home today. Will continue to monitor. CURER Plan of Care - Ollie Lopez RN - 08/21/2013 12:10 AM CST Problem: IP GENERAL POC-ADULT,OB,BEHAVIORAL FVCPM Goal: Individualization/Patient-Specific Goal (Adult,OB,Behavioral The patient and/or their premium service representative will achieve their patient-specific goals related [...] up or out of bed without assistance. CURER Plan of Care - Marichuy Jean, PT - 08/20/2013 5:31 PM CST Problem: General Rehab Plan of Care Goal: Physical Therapy Goals The patient and/or their premium service representative will achieve their patient-specific goals related [...] home care set up for therapies already. CURER Plan of Care - Karime Quinn RN - 08/20/2013 2:22 PM CST Problem: IP GENERAL POC-ADULT,OB,BEHAVIORAL FVCPM Goal: Individualization/Patient-Specific Goal (Adult,OB,Behavioral The patient and/or their premium service representative will achieve their patient-specific goals related to the plan of care. The patient-specific goals include: Outcome: Improving Arrived from PACU at 12:45. Awake and alert. Dressing to leg D&I, immobiilizer in place. Has hemovac. Lungs clear, instructed IS. Given Oxycodone and Vistaril for pain control at 14:10 Botello removed in PACU , due to void. CPM started. CURER Brief Op Note - Jose Fonseca MD - 08/20/2013 9:52 AM CST [facility] [employer] [facility] Brief Operative Note Pre-operative diagnosis: degenerative joint disease Post-operative diagnosis same Procedure: Procedure(s) with comments: ARTHROPLASTY KNEE UNICOMPARTMENT - Right Knee Uni Arthroplasty Surgeon(s): Surgeon(s) and Role: * Jose Fonseca MD - Primary * Adams Patel PA-C Estimated blood loss: * No values recorded between 08/20/2013 8:00 AM and 08/20/2013 9:52 AM * Specimens: * No specimens in log * Findings: See dictation CURER Op Note - Jose Fonseca MD - 08/20/2013 9:47 AM CST PREOPERATIVE DIAGNOSIS: Right knee medial compartment degenerative joint disease. POSTOPERATIVE DIAGNOSIS: Right knee medial compartment degenerative joint disease. PROCEDURE: Unicompartmental arthroplasty, right knee medial compartment, using the Flagler UKA system. SURGEON: Jose Fonseca MD FIBERGLASS BOAT ASSEMBLY SUPERVISOR: Clarence Patel PA-C INDICATIONS: Mr. Anita Christine [...] medial compartment. 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 Ihad a long discussion with him regarding [...] It sized to fit a size 5 Flagler Triathlon UKA component. We found that with [...] EM#[id number] Name: ANITA CHRISTINE MRN: [id number] Account: [id number] : 1955 Procedure Date: 08/20/2013 Document: [id number] CURER Pharmacy-Admission Medication History - Audrey Joseph [facility] - 08/10/2013 6:41 PM CST Pharmacy reviewed prior to admission med list from pre-admitting rn. CURER documented in this encounter Plan of Treatment Upcoming Encounters Date Type Specialty Care Team Description 05/20/2022 Lab Lab documented as of this encounter Procedures Procedure Name Priority Date/Time Associated Comments Diagnosis US LOWER EXTREMITY Routine 08/21/2013 9:53 Result s for this VENOUS DUPLEX RIGHT AM HAM CURER procedur e are in the results section. HEMOGLOBIN Routine 08/21/2013 5:55 Results for this AM HAM CURER procedure are i n the results section. GLUCOSE Routine 08/21/2013 5:55 Results for this AM HAM CURER procedure are i n the results section. GLUCOSE BY METER Routine 08/20/2013 8:36 Results for this PM HAM CURER procedure are i n the results section. GLUCOSE BY METER Routine 08/20/2013 4:42 Results for this PM HAM CURER procedure are i n the results section. XR KNEE PORT RIGHT 06/24 STAT 08/20/2013 10:55 R esults for this VIEWS AM HAM CURER procedure are i n the results section. 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 KRISHNAMURTHY to swab 08/04/2013 6'0, 238# stated POTASSIUM STAT 08/20/2013 6:20 AM HAM CURER Resul ts for this procedure are in the results sec tion. PLATELET COUNT Routine 08/20/2013 6:20 AM HAM CURER Res ults for this procedure are in the results sec tion. HEMOGLOBIN STAT 08/20/2013 6:20 AM HAM CURER Resul ts for this procedure are in the results sec tion. CREATININE STAT 08/20/2013 6:20 AM HAM CURER Resul ts for this procedure are in the results sec tion. GLUCOSE BY METER Routine 08/20/2013 6:03 AM HAM CURER R esults for this procedure are in the results sec tion. documented in this encounter Results US Lower Extremity Venous Duplex Right (08/21/2013 9:53 AM HAM CURER) Anatomical Region Laterality Modality Lower Extremity Ultrasound Specimen (Source) Anatomical Location Collection Method / Collectio n Time Received Time / Laterality Volume Impressions 08/21/2013 9:59 AM HAM CURER IMPRESSION: 1. Stable nonocclusive thrombus in the s uperficial femoral and popliteal veins which is unchanged from 06/02/09. 2. No evidence for acute deep venous thr ombosis. 3. Fluid collection in the popliteal spa ce which may be postoperative fluid or popliteal cyst. LENARD MITCHELL MD Narrative 08/21/2013 9:59 AM HAM CURER US LOWER EXTREMITY VENOUS DUPLEX RIGHT ??08/21/2013 [...] US ORDERABLES (ABNORMAL) Hemoglobin (08/21/2013 5:55 AM HAM CURER) athologist Signature Hemoglobin 12.9 (L) 13.3 - 17.7 [facility] g/[facility] LAB Specimen Anatomical Collection Method Collection Time Receive d Time (Source) Location / / Volume Laterality Blood specimen 08/21/2013 5:55 AM 014 6:45 (specimen) HAM CURER AM HAM CURER Jose Fonseca MD LAB - BLOOD ORDERABLES Performing Organization Address [facility] e Number [facility] [address], [place] [address] [facility] Glucose (08/21/2013 5:55 AM HAM CURER) athologist Signature Glucose 91 60 - 99 [facility] mg/dL [facility] LAB Specimen Anatomical Collection Method Collection Time Receive d Time (Source) Location / / Volume Laterality Blood specimen 08/21/2013 5:55 AM 014 6:45 (specimen) HAM CURER AM HAM CURER Horacio Geller MD LAB - BLOOD ORDERABLES Performing Organization Address [facility] e Number [facility] [address], [place] [address] [facility] (ABNORMAL) Glucose by meter (08/20/2013 8:36 PM HAM CURER) athologist Signature Glucose 112 (H) 60 - 99 POINT OF CARE mg/dL TEST, GLUCOSE Specimen Anatomical Collection Method Collection Time Receive d Time (Source) Location / / Volume Laterality 08/20/2013 8:36 PM 4 8:40 HAM CURER PM HAM CURER Horacio Geller MD LAB - BEAKER POCT Performing Organization Address City/[facility]/ZIP [facility] Phon e Number [facility] POINT OF CARE TEST, GLUCOSE POINT OF CARE TEST, GLUCOSE (ABNORMAL) Glucose by meter (08/20/2013 4:42 PM HAM CURER) athologist Signature Glucose 114 (H) 60 - 99 POINT OF CARE mg/dL TEST, GLUCOSE Specimen Anatomical Collection Method Collection Time Receive d Time (Source) Location / / Volume Laterality 08/20/2013 4:42 PM 4 4:45 HAM CURER PM HAM CURER Horacio Geller MD LAB - BEAKER POCT Performing Organization Address City/State/ZIP Code Phon e Number [facility] POINT OF CARE TEST, GLUCOSE POINT OF CARE TEST, GLUCOSE XR Knee Port Right 1/2 Views (08/20/2013 10:55 AM HAM CURER) Anatomical Region Laterality Modality Right Knee Right Computed Radiography Specimen (Source) Anatomical Location Collection Method / Collectio n Time Received Time / Laterality Volume Impressions 08/20/2013 12:30 PM HAM CURER IMPRESSION: Right medial unicondylar arthroplasty. ?? LAY COOPER MD Narrative 08/20/2013 12:30 PM HAM CURER KNEE PORTABLE ONE TO TWO VIEWS August [...] CAREN IZAGUIRRE Platelet count (08/20/2013 6:20 AM HAM CURER) P athologist Signature Platelet Count 171 150 - 450 [facility] 10e9/L [facility] LAB Specimen Anatomical Collection Method Collection Time Receive d Time (Source) Location / / Volume Laterality 08/20/2013 6:20 AM 4 6:33 HAM CURER AM HAM CURER Morgan Waggoner MD LAB - BLOOD ORDERABLES Performing Organization Address City/State/ZIP Code Phon e Number [facility] [address], [place] [address] [facility] Potassium (08/20/2013 6:20 AM HAM CURER) P athologist Signature Potassium 4.0 3.4 - 5.3 [facility] mmol/L HOSPITAL LAB Specimen Anatomical Collection Method Collection Time Receive d Time (Source) Location / / Volume Laterality Blood specimen 08/20/2013 6:20 AM 014 6:33 (specimen) HAM CURER AM HAM CURER Morgan Waggoner MD LAB - BLOOD ORDERABLES Performing Organization Address City/[facility]/ZIP Code [place] [address], [place] [address] [facility] Creatinine (08/20/2013 6:20 AM HAM CURER) athologist Signature Creatinine 0.89 0.66 - OB[facility] 1.25 mg/dL [facility] LAB GFR Estimate 89 >60 [facility] mL/min/1.7 [facility] m2 [facility] LAB GFR Estimate If >90 >60 [facility] Black mL/min/[address] [place] [address] LAB Specimen Anatomical Collection Method Collection Time Receive d Time (Source) Location / / Volume Laterality Blood specimen 08/20/2013 6:20 AM 014 6:33 (specimen) HAM CURER AM HAM CURER Morgan Waggoner MD LAB - BLOOD ORDERABLES Performing Organization Address City/[facility]/[place] [address], [place] [address] [facility] Hemoglobin (08/20/2013 6:20 AM HAM CURER) athologist Signature Hemoglobin 14.5 13.3 - 17.7 [facility] g/dL HOSPITAL LAB Specimen Anatomical Collection Method Collection Time Receive d Time (Source) Location / / Volume Laterality Blood specimen 08/20/2013 6:20 AM 014 6:33 (specimen) HAM CURER AM HAM CURER Morgan Waggoner MD LAB - BLOOD ORDERABLES Performing Organization Address City/[facility]/[place] [address], [place] [address] [facility] (ABNORMAL) Glucose by meter (08/20/2013 6:03 AM HAM CURER) P athologist Signature Glucose 107 (H) 60 - 99 POINT OF CARE mg/dL TEST, GLUCOSE Specimen Anatomical Collection Method Collection Time Receive d Time (Source) Location / / Volume Laterality 08/20/2013 6:03 AM 4 6:05 HAM CURER AM HAM CURER Horacio Geller MD LAB - BEAKER POCT [...] 5:00 PM 1,000 mLs 125 mL/hr solution HAM CURER at 125 mL/hr, Intravenous, CONTINUOUS, Change to saline lock when PO well tolerated., Post-procedure, Starting on Fri08/20/13 at 1300, Until 08/21/13 at 1628 New Bag 08/20/2013 1:11 PM HAM CURER 1,000 mLs 125 mL/hr acetaminophen (OFIRMEV) 10 [...] tablet 650 mg Given 08/21/2013 12:43 PM HAM CURER 650 mg 650 mg, Oral, EVERY 6 HOURS, First dose on Fri08/20/13 at 1800, Maximum acetaminophen dose from all sources = 75 mg/kg/day not to exceed 4 grams/day., Post-procedure Given 08/21/2013 5:59 AM HAM CURER 650 mg Given 08/21/2013 12:32 AM HAM CURER 650 mg ceFAZolin (ANCEF) IVPB 2 g (pre-mix) New Bag 08/21/2013 1:32 AM HAM CURER 2 g 200 mL/hr Routine, 2 g, Intravenous, EVERY 8 HOURS, First dose on Fri08/20/13 at 1800, For 2 doses, First post-op dose due 8 hours after intra-op dose, see eMAR. , Indications: Perioperative Pharmacoprophylaxis, Post-procedure New Bag 08/20/2013 7:03 PM HAM CURER 2 g 200 mL/hr celecoxib (celeBREX) capsule 200 mg Given 08/21/2013 8:28 AM HAM CURER 200 mg 200 mg, Oral, 2 TIMES DAILY, First dose on 08/21/13 at 0900, For 4 doses, For patients less than 65 years old. Do not give until Ketorolac dosing is complete or if ibuprofen ordered., Post-procedure celecoxib (celeBREX) capsule 400 mg Given 08/20/2013 6:38 AM HAM CURER 400 mg 400 mg, Oral, ONCE, On Fri08/20/13 at 0615, For 1 dose, Pre-procedure cyanocolbalamin (vitamin B-12) tablet 500 Given 08/21/2013 8:29 AM HAM CURER 500 mcg mcg 500 mcg, Oral, DAILY, First dose on 08/21/13 at 0900, Post-procedure enoxaparin (LOVENOX) injection 40 mg Given 08/21/2013 8:28 AM HAM CURER 40 mg 40 mg, Subcutaneous, EVERY 24 [...] injection 25-50 mcg Given 08/20/2013 10:34 AM HAM CURER 50 mcg 25-50 mcg, Intravenous, EVERY 2 MIN PRN, other, acute pain, Starting on Fri08/20/13 at 0948, MAX cumulative dose = 250 mcg. Use Fentanyl initially, as a short acting agent for acute pain control. If insufficient, or a longer acting agent is needed, begin Morphine or Hydromorphone if ordered., PACU Given 08/20/2013 10:18 AM HAM CURER 50 mcg fluticasone (FLOVENT DISKUS) 250 mcg/puff Given 08/21/2013 8:33 AM HAM CURER 250 mcg inhaler 250 mcg 250 mcg (1 puff), Inhalation, 2 TIMES DAILY, First dose on Fri08/20/13 at 2100, Auto sub Flovent diskus for Qvar , Post-procedure gabapentin (NEURONTIN) tablet 600 mg Given 08/20/2013 6:37 AM HAM CURER 600 mg 600 mg, Oral, ONCE, On Fri08/20/13 at 0615, For 1 dose, Pre-procedure HYDROmorphone (DILAUDID) injection 0.2 m g Given 08/20/2013 4:46 PM HAM CURER 0.2 mg 0.2 mg, Intravenous, EVERY 30 MIN PRN, moderate to severe pain, Starting on Fri08/20/13 at 1255, Post-procedure HYDROmorphone (DILAUDID) injection 0.3-0.5 Given 08/20/2013 11:03 AM HAM CURER 0.5 mg mg 0.3-0.5 mg, Intravenous, EVERY 5 MIN PRN, moderate to severe pain, acute pain. May administer if RR is > 10 , Starting on Fri08/20/13 at 0948, If fentanyl is also ordered, use HYDROmorphone if pain control insufficient with fentanyl or a longer acting agent is needed. Max cumulative dose = 2 mg , PACU Given 08/20/2013 10:24 AM HAM CURER 0.5 mg hydrOXYzine (ATARAX) tablet 25 mg Given 08/21/2013 10:19 AM HAM CURER 25 mg 25 mg, Oral, 3 TIMES DAILY PRN, other, pain, Starting on Fri08/20/13 at 1255, Post-procedure Given 08/21/2013 4:21 AM HAM CURER 25 mg Given 08/20/2013 10:09 PM HAM CURER 25 mg ondansetron (ZOFRAN) injection 4 mg Given 08/21/2013 4:20 AM HAM CURER 4 mg 4 mg, Intravenous, EVERY 6 HOURS, Administer over 2-5 Minutes, First dose on Fri08/20/13 at 1600, For 4 doses, Post-procedure oxyCODONE (OxyCONTIN) 12 hr tablet 10 mg Given 08/20/2013 6:38 AM HAM CURER 10 mg 10 mg, Oral, ONCE, On Fri08/20/13 at 0615, For 1 dose, DO NOT CRUSH., Pre-procedure oxyCODONE (OxyCONTIN) 12 hr tablet 20 mg Given 08/21/2013 8:28 AM HAM CURER 20 mg 20 mg, Oral, EVERY 12 HOURS, First dose on Fri08/20/13 at 2000, Post-procedure Given 08/20/2013 8:06 PM HAM CURER 20 mg oxyCODONE (ROXICODONE) immediate release Given 08/21/2013 12:43 PM HAM CURER 10 mg tablet 5-10 mg 5-10 mg, Oral, EVERY 3 HOURS PRN, moderate to severe pain, Starting on Fri08/20/13 at 1255, Post-procedure Given 08/21/2013 10:04 AM HAM CURER 10 mg Given 08/21/2013 7:07 AM HAM CURER 10 mg ranitidine (ZANTAC) tablet 150 mg Given 08/21/2013 8:28 AM HAM CURER 150 mg 150 mg, Oral, 2 TIMES [...] flush 3 mL Given 08/21/2013 4:20 AM HAM CURER 3 mLs 3 mL, Intravenous, EVERY 8 HOURS, First dose on Fri08/20/13 at 1300, to lock peripheral IV dormant line. Also Ordered Q1H PRN, Post-procedure sodium chloride 0.9 % BOLUS New Bag 08/20/2013 1:11 PM HAM CURER 1,000 m Ls 500 mL/hr 1,000 mL Intravenous, 1,000 mL, ONCE, at 500 mL/hr, Administer over 2 Hours, On Fri08/20/13 at 1300, For 1 dose, Give over 2 hours as soon as pt arrives on floor, Post-procedure sodium chloride 0.9% (bag) irrigation Given 08/20/2013 8:27 AM HAM CURER 1,500 mLs PRN, Starting on Fri08/20/13 at 0827, Area to irrigate and instructions: ., Intra-procedure testosterone (ANDROGEL 1.62% PUMP) GEL 40.5 Given 06/2013 10:06 AM HAM CURER 40.5 mg mg 40.5 mg (2 pump), Topical, DAILY, First dose on Fri08/20/13 at 1800, Patient will need to bring in own home med supply if wants to use in hospital, Post-procedure Given 08/20/2013 7:23 PM HAM CURER 40.5 mg documented in this encounter Active and Recently Administered Medications Times are shown in HAM CURER. Scheduled Medication Order 08/19/2013 08/20/2013 08/21/2013 acetaminophen [...] 0733 (Given - Provider: Jovita Figueroa APRN SUCTION DRUM DRIER OPERATOR)1001 (Given - Provider: Jovita Figueroa APRN SUCTION DRUM DRIER OPERATOR) 3 g, Intravenous, PRE-OP/PRE-PROCEDURE, For 1 dose, Give first dose within 1 hour PRIOR to incision., Indications: Surgical Prophylaxis, Pre-procedure ceFAZolin (ANCEF) IVPB 2 g (pre-mix) (COMPLETED) 190 (New Bag - Provider: Perla Lopez RN) 013 (New Bag - Provider: [...] Intra-procedure documented in this encounter Care Teams Hem Marker Relationship Specialty Start Date End Date Ian Kendrick MD PCP - General 11/19/07 02/21/[address] [id number] documented as of this encounter
--- OUTSIDE RECORDS SUMMARY | 2022-05-15 23:05 | XMS_ITS | Encounter Summary ---
:1955 Author Organization [place] Address [address] [place] [address] Care Team Providers Name Role Phone Ian Kendrick MD Primary Care Provider [phone] Reason for Visit Reason Comments Pre-Op Exam Encounter Details Date Type Department Care Team Description 08/16/2013 Office Visit [facility] aIn Kendrick Preop general physical exam (Primary Dx); Clinic Chhaya Daniels MD OA (osteoarthritis) of knee; [address] [facility] Personal history of DVT (gino p vein thrombosis); [place], [place] CLINIC Elevated blood pressure reading without diagnosis of hypertension; [phone] [facility] [place] Anticardiolipin antibody pos itive [phone] [place] [address] Social History Tobacco Use Types [...] you attend rastafari or Patient refused 2020 yarsani services? Do [...] Comments Blood Pressure 142/83 08/16/2013 2:18 PM CRYPTOANALYSIS TEACHER Pulse 82 08/16/2013 2:18 PM CRYPTOANALYSIS TEACHER Temperature 36.6 ??C (97.8 ??F) 08/16/2013 2:18 PM CRYPTOANALYSIS TEACHER Respiratory Rate - - Oxygen Saturation 96% 08/16/2013 2:18 PM CRYPTOANALYSIS TEACHER Inhaled Oxygen Concentration - - Weight 109.8 kg (242 lb 2 oz) 08/16/2013 2:18 PM CRYPTOANALYSIS TEACHER Height 181 cm (5' 11.25) 08/16/2013 2:18 PM CRYPTOANALYSIS TEACHER Body Mass Index 33.53 08/16/2013 2:18 PM CRYPTOANALYSIS TEACHER documented in this encounter Progress Notes Ian Kendrick MD - 08/16/2013 2:23 PM CST [address] [address] Dept: [phone] PRE-OP EVALUATION: Today's date: 08/16/2013 Virgil Christine [...] Time of Surgery/ Procedure: 6:00am Hospital/Surgical Facility: [facility] Primary Physician: Ian Kendrick Type of [...] call the 24 hour nurse line at [phone] Patient needs to schedule an appointment I will call the 24 hour scheduling team at [phone] orclinic directly Same day treatment I will call the clinic first, nurse line if after hours, urgent care and expresscare if needed DX V65.8 REPLACED WITH [address] [facility] (09/28/2012) ??? Personal history of DVT (deep [...] Surgical History Procedure Date ??? Colostomy ??? [place] filter ??? Resection abdominal perineal Current Outpatient Prescriptions Medication Sig ??? [START ON 08/20/2013] rivaroxaban ANTICOAGULANT (XARELTO) 10 MG TABS tablet Take 1 tablet (10 mg)by mouth daily (with dinner) ??? MELATONIN PO Take 5 mg by mouth nightly as needed ??? multivitamin, therapeutic with minerals (MULTI-VITAMIN) TABS Take 1 tablet by mouth daily ??? [place]-3 Fatty Acids (OMEGA-3 FISH OIL PO) Take [...] cardiovascular risks for perioperative complications such as (ME, PE, VFib and 3?? AV Block): No [...] evaluation report is provided to requesting physician. TOANALYSIS TEACHER documented in this encounter Nursing Notes 08/16/2013 [...] completed using cuff size: large Marco Pak DESIGN CENTER CONSULTANT documented in this encounter Plan of [...] findings documented in this encounter Care Teams Auto Tech Relationship Specialty Start Date End Date Ian Kendrick MD PCP - General 11/19/07 02/21/14 [facility] [address] [place] [address] documented as of this encounter
--- OUTSIDE RECORDS SUMMARY | 2022-05-15 23:05 | XMS_ITS | Encounter Summary ---
:1955 Author Organization [place] Address [address] [place] [address] Care Team Providers Name Role Phone Ian Kendrick MD Primary Care Provider [phone] Reason for Visit Reason Onset Date Comments Other 02/11/2013 over heated Encounter Details Date Type Department Care Team Description 02/11/2013 Telephone [facility] Ian Kendrick Other (over heated) [facility] MD Jeremiah [address] [place] [address] [place] [address] [facility] [phone] [place] [address] (Wo rk) Social History Tobacco [...] you attend samaritan or Patient refused 2020 shinto services? Do [...] on filedocumented in this encounter Care Teams Automation Qa Tester Relationship Specialty Start Date End Date Ian Kendrick MD PCP - General 11/19/07 02/21/14 [facility] [address] [place] [address] documented as of this encounter
--- OUTSIDE RECORDS SUMMARY | 2022-05-15 23:05 | XMS_ITS | Encounter Summary ---
:1955 Author Organization [place] Address [address] [place] [address] Care Team Providers Name Role Phone Ian Kendrick MD Primary Care Provider [phone] Encounter Details Date Type Department Care Team Description 08/04/2013 Orders Only [facility] MD Angel Luis examination, [address] [facility] unspecified (Primary [place], [place] ORTHOPEDICS Dx) [address] [phone] [address] [place] [address] Social History Tobacco Use Types Packs/Day Years [...] you attend buddhism or Patient refused 2020 islam services? Do [...] Primary documented in this encounter Care Teams Conference Center Coordinator Relationship Specialty Start Date End Date Ian Kendrick MD PCP - General 11/19/07 02/21/14 [facility] [address] [place] [address] documented as of this encounter
--- OUTSIDE RECORDS SUMMARY | 2022-05-15 23:05 | XMS_ITS | Encounter Summary ---
:1955 Author Organization [place] Address [facility] [place] [address] Care Team Providers Name Role Phone Ian Kendrick MD Primary Care Provider [phone] Reason for Visit Reason Onset Date Comments Patient/info Update 01/08/2013 Side effects to medi cation Encounter Details Date Type Department Care Team Description 01/08/2013 Telephone [facility] Patient/info Update [facility] [address] [facility]Side effect s to [facility] [facility] medication) [address] [id number] [address] [place], [place] (Work) [address] Social History Tobacco Use [...] this encounter Miscellaneous Notes Telephone Encounter - Dilepe Kendrick MD - 01/11/2013 12:29 PM CDT [...] filedocumented in this encounter Care Teams Chief Clinical Dietitian Relationship Specialty Start Date End Date Ian Kendrick MD PCP - General 11/19/07 02/21/14 [facility] [address] [place] [address] documented as of this encounter
--- OUTSIDE RECORDS SUMMARY | 2022-05-15 23:05 | XMS_ITS | Encounter Summary ---
:1955 Author Organization [place] Address [address] [place] [address] Care Team Providers Name Role Phone Ian Kendrick MD Primary Care Provider [phone] Encounter Details Date Type Department Care Team Description 08/04/2013 Hospital Encounter [facility] MD Angel Luis examination, [address] [facility] unspecified [place], [place] ORTHOPEDICS [address] [phone] [address] [place] [address] Social History Tobacco Use Types Packs/Day Years [...] therapeutic with mouth daily minerals (MULTI-VITAMIN) TABS [place]-3 Fatty Acids Take 1 g by mouth [...] PM Preoperative Results for this NASAL SWAB HEALTH PLAN MANAGER examination, procedure are i n unspecified the results section. documented in this encounter Results Methicillin Resistant Staph Aureus PCR (08/04/2013 2:15 PM HEALTH PLAN MANAGER) Component Value Ref Test Analysis Performed At [facility] Range Method Time Signature Specimen [facility] LAB Methicillin Negative NEG [facility] Resist/Sens S. MRSA Negative: SA Negative ? ?MRSA and Staphylococcus aureus target DNA not MICROBIOLOGY aureus PCR detected, presumed negative for MRSA and SA colonization or the number of bacteria present may be below the limit of detection for th e assay. FDA approved assay performed using Quanttus GeneXpert(R) real-ti me PCR. Specimen Anatomical Collection Method Collection Time Receive d Time (Source) Location / / Volume Laterality 08/04/2013 2:15 PM 4 2:20 HEALTH PLAN MANAGER PM HEALTH PLAN MANAGER Horacio Geller MD LAB - MICRO GENERAL ORDERABL ES Performing Organization Address City/State/ZIP Code Phon e Number [id number] [place] [address] LAB [facility] MICROBIOLOGY documented in this encounter Visit Diagnoses Diagnosis Preoperative examination, unspecified documented in this encounter Care Teams Control System Manager Relationship Specialty Start Date End Date Ian Kendrick MD PCP - General 11/19/07 02/21/14 [facility] [address] [place] [address] documented as of this encounter
--- OUTSIDE RECORDS SUMMARY | 2022-05-15 23:05 | XMS_ITS | Encounter Summary ---
:1955 Author Organization [place] Address [address] [place] [address] Care Team Providers Name Role Phone Ian Kendrick MD Primary Care Provider [phone] Reason for Visit Reason Onset Date Comments Refill Request 03/31/2013 Encounter Details Date Type Department Care Team Description 03/31/2013 Refill [facility] Ian Kendrick, Refill Request Chhaya VILL[place] [address] [place] [address] [facility] [phone] [facility] [address] [address] (Wo rk) Social History Tobacco [...] you attend yarsani or Patient refused 2020 restoration services? Do [...] unspecified documented in this encounter Care Teams Assistant Director Of Admissions Relationship Specialty Start Date End Date Ian Kendrick MD PCP - General 11/19/07 02/21/14 [facility] [address] [place] [address] documented as of this encounter
--- OUTSIDE RECORDS SUMMARY | 2022-05-15 23:05 | XMS_ITS | Encounter Summary ---
:1955 Author Organization [place] Address [address] [place] [address] Care Team Providers Name Role Phone Ian Kendrick MD Primary Care Provider [phone] Reason for Visit Reason Onset Date Comments Medication Question 07/30/2013 Androgel question Encounter Details Date Type Department Care Team Description 07/30/2013 Telephone [facility] Ian Kendrick Medica tion Question Clinic Chhaya Daniels MD (Androgel question ) [address] [place], [place] [address] [facility] [address] [facility] [phone] [place] [address] (Wo rk) Social History Tobacco [...] you attend scientology or Patient refused 2020 nondenominational services? Do [...] mg testosterone Route: Topical Chacha Laboy RN. OGICAL TECHNICAL OFFICER documented in this encounter Plan of Treatment Upcoming Encounters Date Type Specialty Care Team Description 05/20/2022 Lab Lab documented as of this encounter Visit Diagnoses Not on filedocumented in this encounter Care Teams Electronic Systems Technician Relationship Specialty Start Date End Date Ian Kendrick MD PCP - General 11/19/07 02/21/14 [place] [address] [place] [address] documented as of this encounter
--- OUTSIDE RECORDS SUMMARY | 2022-05-15 23:05 | XMS_ITS | Encounter Summary ---
:1955 Author Organization [place] Address [address] [place] [address] Care Team Providers Name Role Phone Ina Kendrick MD Primary Care Provider [phone] Reason for Visit Reason Comments RECHECK testosterone therapy Encounter Details Date Type Department Care Team Description 07/29/2013 Office Visit [facility] Ian Kendrick Testos terone Clinic Lometa MD Jeremiah deficiency (Primary [address] [place] [address] Dx) [place], [place] CLINIC [address] [facility] [phone] [place] [address] Social History Tobacco Use Types Packs/Day Years [...] you attend restoration or Patient refused 2020 congregational services? Do [...] Comments Blood Pressure 130/85 07/29/2013 11:27 AM COMPUTER SYSTEMS MANAGER Pulse 67 07/29/2013 11:27 AM COMPUTER SYSTEMS MANAGER Temperature 36.7 ??C (98.1 ??F) 07/29/2013 11:27 AM COMPUTER SYSTEMS MANAGER Respiratory Rate - - Oxygen Saturation 98% 07/29/2013 11:27 AM COMPUTER SYSTEMS MANAGER Inhaled Oxygen Concentration - - Weight 108.9 kg (240 lb) 07/29/2013 11:27 AM COMPUTER SYSTEMS MANAGER Height 180.3 cm (5' 11) 07/29/2013 11:27 AM COMPUTER SYSTEMS MANAGER Body Mass Index 33.47 07/29/2013 11:27 AM COMPUTER SYSTEMS MANAGER documented in this encounter Progress Notes [...] history, are all reviewed and updated in [facility]. Current Outpatient Prescriptions Medication Sig ??? testosterone [...] greater than 50% of 25 minutes of [id number] time counseling patient and/or coordinating care regarding above issues. UTER SYSTEMS MANAGER documented in this encounter Nursing Notes 07/29/2013 [...] kg). BP completed using cuff size: large Mraco Pak DISASTER DIRECTOR documented in this encounter Plan of Treatment Upcoming Encounters Date Type Specialty Care Team Description 05/20/2022 Lab Lab documented as of this encounter Visit Diagnoses Diagnosis Testosterone deficiency - Primary Other testicular hypofunction documented in this encounter Care Teams Cook Helper Relationship Specialty Start Date End Date Ian Kendrick MD PCP - General 11/19/07 02/21/14 [facility] [address] [place] [address] documented as of this encounter
--- OUTSIDE RECORDS SUMMARY | 2022-05-15 23:05 | XMS_ITS | Encounter Summary ---
:1955 Author Organization [place] Address [address] [place] [address] Care Team Providers Name Role Phone Ian Kendrick MD Primary Care Provider [phone] Reason for Visit Reason Comments Physical pt is fasting for labs. Encounter Details Date Type Department Care Team Description 07/07/2013 Office Visit [facility] Ian Kendrick e general medical examination at a health care facility (Primary Dx); Clinic Chhaya Daniels MD Need for prophylactic vaccination with c ombined cdsgssawlk-jrphjvo-dfqksjsys (DTP) vaccine; [address] [facility] CATHERINE Mild persistent asthma; [place], [place] CLINIC Erectile dysfunction; [phone] [address] ULCERATIVE COLITIS NOS; [phone] Edema leg; [place], [place] Lateral ep icondylitis; [address] Lichen planus; [phone] Insomnia; (Work) Low libido; Gross hem aturia; [...] you attend denominational or Patient refused 2020 mandaeism services? Do [...] Comments Blood Pressure 147/88 07/07/2013 10:01 AM LUMBER STRAIGHTENED Pulse 87 07/07/2013 10:01 AM LUMBER STRAIGHTENED Temperature 36.9 ??C (98.5 ??F) 07/07/2013 10:01 AM LUMBER STRAIGHTENED Respiratory Rate - - Oxygen Saturation 96% 07/07/2013 10:01 AM LUMBER STRAIGHTENED Inhaled Oxygen Concentration - - Weight 108.5 kg (239 lb 2 oz) 07/07/2013 10:01 AM LUMBER STRAIGHTENED Height 180.3 cm (5' 11) 07/07/2013 10:01 AM LUMBER STRAIGHTENED Body Mass Index 33.35 07/07/2013 10:01 AM LUMBER STRAIGHTENED documented in this encounter Patient Instructions Patient [...] eye doctor every 1 to 2 years. ER STRAIGHTENED documented in this encounter Progress Notes Ian Kendrick MD - 07/11/2013 4:57 PM LUMBER STRAIGHTENED Quick Note: Your recent lab test did [...] decision to screen be made on a [id number] basis once yearly. Your Hepatitis C virus screening test was negative. Current recommendations are that screening be done only once, so you will not need this test again. Please contact the clinic if you have further questions or concerns. Sincerely, Ian Kendrick MD ER STRAIGHTENED Ian Kendrick MD - 07/07/2013 10:08 AM [...] Yes All Histories reviewed and updated in [facility]. ROS: C: NEGATIVE for fever, chills, [...] V06.1 Need for prophylactic vaccination with combined ljfofimrmg-kmmqwtw-yfxyyedrm (DTP) vaccine Comment: Plan: TDAP ( BOOSTRIX [...] fruits/vegetables and avoid sweets. Ian Kendrick MD [facility] ER STRAIGHTENED documented in this encounter Nursing Notes 07/07/2013 [...] today. aap and act done. Marco Pak PUBLIC INTERVIEWER documented in this encounter Plan of Treatment Upcoming Encounters Date Type Specialty Care Team Description 05/20/2022 Lab Lab documented as of this encounter Procedures Procedure Name Priority Date/Time Associated Diagnosis Comme nts UA MACROSCOPIC WITH Routine 07/07/2013 10:58 Gross hematuria R esults for this REFLEX TO MICROSCOPIC AM LUMBER STRAIGHTENED proced ure are in AND CULTURE the results section. TESTOSTERONE TOTAL Routine 07/07/2013 10:57 Low libido Resul ts for this AM LUMBER STRAIGHTENED procedure are i n the results section. SEX HORMONE BINDING Routine 07/07/2013 10:57 Low libido Resu lts for this GLOBULIN AM LUMBER STRAIGHTENED procedure are i n the results section. PROSTATE SPECIFIC Routine 07/07/2013 10:57 Gross hematur ia Results for this ANTIGEN SCREEN AM LUMBER STRAIGHTENED Special screening for proc edure are in malignant neoplasm of the re sults prostate section. LIPID REFLEX TO Routine 07/07/2013 10:57 Hyperlipidemia LDL Re sults for this DIRECT LDL PANEL AM LUMBER STRAIGHTENED goal < 130 procedure a re in the results section. HEPATITIS C ANTIBODY Routine 07/07/2013 10:57 Need for hepatit is C Results for this AM LUMBER STRAIGHTENED screening test procedure are in the results section. COMPREHENSIVE Routine 07/07/2013 10:57 Elevated blood Results for this METABOLIC PANEL AM LUMBER STRAIGHTENED pressure reading procedur e are in without diagnosis of the res ults hypertension section. CBC WITH PLATELETS Routine 07/07/2013 10:57 Low libido Results for this AM LUMBER STRAIGHTENED Gross hematuria procedure are in Elevated blood the results pressure reading section. without diagnosis of hypertension ASTHMA ACTION PLAN Routine 07/07/2013 9:52 AM LUMBER STRAIGHTENED documented in this encounter Results UA reflex to Microscopic and Culture (07/07/2013 10:58 AM LUMBER STRAIGHTENED) [facility] gist Method Time Signature Color Urine Yellow [facility] Appearance Urine Clear [facility] Glucose Urine Negative NEG mg/dL [facility] Bilirubin Urine Negative NEG [facility] Ketones Urine Negative NEG mg/dL [facility] Specific [place] >1.030 1.003 - [place] Urine 1.035 [facility] Blood Urine Negative NEG [facility] pH Urine 5.5 5.0 - 7.0 [place] pH [facility] Protein Albumin Negative NEG mg/dL [place] Urine [facility] Urobilinogen 0.2 0.2 - 1.0 [place] Urine EU/dL [facility] Nitrite Urine Negative NEG [facility] Leukocyte Negative NEG [place] Esterase Urine [facility] Source Midstream [place] Urine [facility] Specimen Anatomical Collection Method Collection Time Receive d Time (Source) Location / / Volume Laterality Urine specimen 07/07/2013 10:58 4 (specimen) AM LUMBER STRAIGHTENED 10:59 AM LUMBER STRAIGHTENED Ian Kendrick MD LAB - URINE ORDERABLES Performing Organization Address City/[facility] [address]/ZIP Code Phon e Number [facility] [address] [place] [address] Hepatitis C antibody (07/07/2013 10:57 AM LUMBER STRAIGHTENED) [facility] gist Method Time Signature Hepatitis C Negative NEG [facility] Antibody MICROBIOLOGY Specimen Anatomical Collection Method Collection Time Receive d Time (Source) Location / / Volume Laterality Blood specimen 07/07/2013 10:57 4 (specimen) AM LUMBER STRAIGHTENED 10:58 AM LUMBER STRAIGHTENED Ian Kendrick MD LAB - BLOOD ORDERABLES Performing Organization Address City/State/ZIP Code Phon e Number [address] [address] [facility] Prostate spec antigen screen (07/07/2013 10:57 AM LUMBER STRAIGHTENED) athologist Signature PSA 0.45 0 - 4 ug/L [facility] Specimen Anatomical Collection Method Collection Time Receive d Time (Source) Location / / Volume Laterality Blood specimen 07/07/2013 10:57 4 (specimen) AM LUMBER STRAIGHTENED 10:58 AM LUMBER STRAIGHTENED Ian Kendrick MD LAB - BLOOD ORDERABLES Performing Organization Address City/[facility] [address]/ZIP Code Phon e Number [facility] [address], [place] [address] [facility] [address], [place] [address] Sex hormone binding globulin (07/07/2013 10:57 AM LUMBER STRAIGHTENED) P athologist Signature Sex Hormone 18 [facility] Comment: Reference range: 11 to 80 Unit: nmol/L (Note) REFERENCE INTERVAL: Sex Hormone Binding Globulin Access complete set of age- and/or gende r-specific reference intervals for this test in the [employer] Laboratory Test Directory ([employer]). Performed by [employer], [address] [place] [id number] [email or web address], Nish Knight MD, L ab. Director Specimen Anatomical Collection Method Collection Time Receive d Time (Source) Location / / Volume Laterality Blood specimen 07/07/2013 10:57 4 (specimen) AM LUMBER STRAIGHTENED 10:58 AM LUMBER STRAIGHTENED Ian Kendrick MD LAB - BLOOD ORDERABLES Performing Organization Address City/State/ZIP Code Phon e Number [place] [address] [address] [place] [phone] (ABNORMAL) Testosterone total (07/07/2013 10:57 AM LUMBER STRAIGHTENED) [facility] gist Method Time Signature Testosterone 181 (L) 240 - 950 [facility] Total ng/dL [facility] Specimen Anatomical Collection Method Collection Time Receive d Time (Source) Location / / Volume Laterality Blood specimen 07/07/2013 10:57 4 (specimen) AM LUMBER STRAIGHTENED 10:58 AM LUMBER STRAIGHTENED Ian Kendrick MD LAB - BLOOD ORDERABLES Performing Organization Address City/[facility] [address]/ZIP Code Phon e Number [address] [address] [facility] (ABNORMAL) Comprehensive metabolic panel (07/07/2013 10:57 AM LUMBER STRAIGHTENED) P athologist Signature Sodium 139 133 - 144 [place] mmol/L [facility] Potassium 3.8 3.4 - 5.3 [place] mmol/L [facility] Chloride 101 94 - 109 [place] mmol/L [facility] Carbon Dioxide 26 20 - 32 [place] mmol/L [facility] Anion Gap 12 6 - 17 [place] mmol/L [facility] Glucose 109 (H) 60 - 99 [place] mg/dL [facility] Comment: Fasting specimen Urea Nitrogen 15 7 - 30 mg/dL [place] [facility] Creatinine 0.94 0.66 - 1.25 mg/dL [place] [facility] GFR Estimate 83 >60 mL/min/1.7m2 [place] [facility] GFR Estimate If Black >90 >60 mL/min/1.7m2 [facility] Calcium 9.6 8.5 - 10.4 mg/dL [place] [facility] Bilirubin Total 1.3 0.2 - 1.3 mg/dL [facility] Albumin 4.0 3.3 - 4.9 g/dL [facility] Comment: Reference range changed on 02/22. Protein Total 7.4 6.8 - 8.8 g/dL [place] [facility] Comment: As of 07, reference range reflects plasma specimen type. Alkaline Phosphatase 91 40 - 150 U/L [facility] ALT 37 0 - 70 U/L [facility] [place] AST 28 0 - 45 U/L [facility] [place] Specimen Anatomical Collection Method Collection Time Receive d Time (Source) Location / / Volume Laterality Blood specimen 07/07/2013 10:57 4 (specimen) AM LUMBER STRAIGHTENED 10:58 AM LUMBER STRAIGHTENED Ian Kendrick MD LAB - BLOOD ORDERABLES Performing Organization Address City/State/[facility] Code Phon e Number [facility] [address] [place] [address] (ABNORMAL) Lipid panel reflex to direct LDL (07/07/2013 10:57 AM LUMBER STRAIGHTENED) P athologist Signature Cholesterol 220 (H) 0 - 200 [place] mg/dL [facility] Comment: LDL Cholesterol is the primary guide to therapy. The NCEP recommends further evaluation of: patients with cholesterol greater than 200 mg/dL if additional risk facto rs are present, cholesterol greater than 240 mg/dL, triglycerides greater than 1 50 mg/dL, or HDL less than 40 mg/dL. Triglycerides 228 (H) 0 - 150 mg/dL [facility] HDL Cholesterol 45 40 - 110 mg/dL [facility] LDL Cholesterol Calculated 129 0 - 129 mg/dL [facility] Comment: LDL Cholesterol is the primary guide to therapy: LDL-cholesterol goal in high risk patients is <100 mg/dL and in very high risk patients is <70 mg/dL. VLDL-Cholesterol 46 (H) 0 - 30 mg/dL [facility] Cholesterol/HDL Ratio 4.9 0.0 - 5.0 [facility] Specimen Anatomical Collection Method Collection Time Receive d Time (Source) Location / / Volume Laterality Blood specimen 07/07/2013 10:57 4 (specimen) AM LUMBER STRAIGHTENED 10:58 AM LUMBER STRAIGHTENED Ian Kendrick MD LAB - BLOOD ORDERABLES Performing Organization Address City/State/ZIP Code Phon e Number [facility] [address] [place] [address] CBC with platelets (07/07/2013 10:57 AM LUMBER STRAIGHTENED) P athologist Signature WBC 7.0 4.0 - 11.0 [place] 10e9/L [facility] RBC Count 4.80 4.4 - 5.9 [place] 10e12/L [facility] Hemoglobin 15.0 13.3 - [place] 17.7 g/dL [facility] Hematocrit 43.5 40.0 - [place] 53.0 % [facility] MCV 91 78 - 100 [place] fl [facility] MCH 31.3 26.5 - [place] 33.0 pg [facility] MCHC 34.5 31.5 - [place] 36.5 g/dL [facility] RDW 12.9 10.0 - [place] 15.0 % [facility] Platelet Count 164 150 - 450 [place] 10e9/L [facility] Specimen Anatomical Collection Method Collection Time Receive d Time (Source) Location / / Volume Laterality Blood specimen 07/07/2013 10:57 4 (specimen) AM LUMBER STRAIGHTENED 10:58 AM LUMBER STRAIGHTENED Ian Kendrick MD LAB - BLOOD ORDERABLES Performing Organization Address City/State/ZIP Code Phon e Number [facility] [address] [place] [address] documented in this encounter Visit Diagnoses Diagnosis Routine general medical examination at a health care facility - Primary Need for prophylactic vaccination with c ombined ymzbdccubo-bscdovy-oimkilejp (DTP) vaccine Mild persistent asthma Unspecified asthma [...] hyperlipidemia documented in this encounter Care Teams Composite Laminator Relationship Specialty Start Date End Date Ian Kendrick MD PCP - General 11/19/07 02/21/14 [facility] [address] [place] [address] documented as of this encounter
--- OUTSIDE RECORDS SUMMARY | 2022-05-15 23:05 | XMS_ITS | Encounter Summary ---
:1955 Author Organization [place] Address [address] [place] [address] Care Team Providers Name Role Phone Ian Kendrick MD Primary Care Provider [phone] Reason for Visit Reason Onset Date Comments Refill Request 05/04/2013 Encounter Details Date Type Department Care Team Description 05/04/2013 Refill [facility] Ian Kendrick, Refill Request Chhaya VILLASEÑOR [address] [place] [address] [address] [facility] [phone] [facility] [address] (Wo rk) Social History Tobacco Use [...] you attend hoahaoism or Patient refused 2020 islam services? Do [...] Rx resent for pt' Esthela Merritt RN ICATION DEVELOPMENT SPECIALIST documented in this encounter Plan of Treatment Upcoming Encounters Date Type Specialty Care Team Description 05/20/2022 Lab Lab documented as of this encounter Visit Diagnoses Diagnosis ULCERATIVE COLITIS NOS - Primary Ulcerative colitis, unspecified documented in this encounter Care Teams Gardener Relationship Specialty Start Date End Date Ian Kendrick MD PCP - General 11/19/07 02/21/[address] [address] documented as of this encounter
--- OUTSIDE RECORDS SUMMARY | 2022-05-15 23:05 | XMS_ITS | Encounter Summary ---
:1955 Author Organization [place] Address [address] [place] [address] Care Team Providers Name Role Phone Ian Kendrick MD Primary Care Provider [phone] Reason for Visit Reason Comments Back Pain R SI joint pain, 4 days, has tried chiropractic, no radicular, bilateral leg swelling since last nigh t Encounter Details Date Type Department Care Team Description 01/07/2013 Office Visit [facility] & Dileep Kendrick Acute ri ght hip pain Orthopedic MD Jose (Primary Dx) Care-[facility] [address] [place], [place] [address] [facility] [address] [address] [place], [place] (Work) [address] Social History Tobacco Use [...] Kendrick MD - 01/07/2013 11:23 AM CDT [facility] Clinic Visit s [...] Positive ??? Mild persistent asthma ??? [facility] ? ? Hyperlipidemia LDL goal <160 Review [...] improvement in symptoms. Dileep Kendrick MD, CAM [facility] documented in this encounter Nursing Notes 01/07/2013 11:15 AM CDT >> Jasmine Das [facility] Jan 07, 2013 11:26 AM Patient presents [...] thigh documented in this encounter Care Teams Plate Furnace Operator Relationship Specialty Start Date End Date Ian Kendrick MD PCP - General 11/19/07 02/21/14 [place] [id number] [place] [address] documented as of this encounter
--- OUTSIDE RECORDS SUMMARY | 2022-05-15 23:05 | XMS_ITS | Encounter Summary ---
:1955 Author Organization [facility] Address [address] [place] [address] Care Team Providers Name Role Phone Ian Kendrick MD Primary Care Provider [phone] Froylan Louise MD Primary Care Provider Unavailable [...] Date Type Department Care Team Description 02/01/2013 [facility] Ian Kendrick Medica tion Request Clinic Chhaya Daniels MD (need 5 more refills [address] [facility] CLINIC on Imodium) [place], [place] [address] [facility] [address] [facility] [phone] [place] [address] (Wo rk) Social History Tobacco Use Types Packs/Day Years Used Date Smoking Tobacco: Former Cigarettes Smokeless Tobacco: Never Comments: 2004 Alcohol Use Standard Drinks/Week Comments Yes 0 (1 standard drink = 0.6 oz pure alcoho l) 4 BEERS A WEEK Alcohol Habits Answer Date Recorded How often do you have a drink containing 4 or more times a w [place] 05/25/2021 alcohol? How many drinks containing alcohol [...] attend oriental orthodox or Patient refused 2020 advent services? [...] talk to patient his phone number is [phone]. documented in this encounter Plan of Treatment [...] documented as of this encounter Care Teams Marriage Therapist Relationship Specialty Start Date End Date Ian Knedrick PCP - General 11/19/07 02/21/14 MD Jeremiah [facility] [address] [place] [address] Froylan Louise MD PCP - General Family Practice 02/22/14 Froylan Louise MD PCP - Assigned PCP 03/13/14 08/25/18 So Dodd MD PCP - General Family Medicine 01/10/22 01/17/22 [address] [place], [place] [id number] Froylan oLuise MD PCP - General Family Medicine 01/18/22 So Dodd MD PCP - General Family Medicine 02/21/22 [address] [place] [address] Froylan Louise MD Assigned PCP 03/13/14 2 Esthela Corea RN Personal Advocate & Family Medicine 10/16/20 Liaison (PAL) So Dodd MD Assigned PCP 01/05/22 [address] [place] [address] documented as of this encounter
--- OUTSIDE RECORDS SUMMARY | 2022-05-15 23:05 | XMS_ITS | Encounter Summary ---
:1955 Author Organization [place] Address [address] [place] [address] Care Team Providers Name Role Phone Ian Kendrick MD Primary Care Provider [phone] Reason for Visit Reason Onset Date Comments Deep Vein Thrombosis 08/17/2013 Encounter Details Date Type Department Care Team Description 08/17/2013 Telephone [facility] Ian Kendrick Deep V ein Thrombosis Clinic [place] MD Jeremiah [address] [place] [address] [place] [address] [facility] [phone] [place] [address] (Wo rk) Social History Tobacco [...] containing 4 or more times a w tribal 05/25/2021 alcohol? How many drinks containing alcohol [...] you attend amish or Patient refused 2020 temple services? Do [...] Ian Kendrick MD - 08/17/2013 1:55 PM JOINT YARNER Spoke with Hematology regarding his history of DVT and anticardiopilin antibodies - recommended Xarelto 10mg once daily for 30 days following surgery for DVT prophylaxis Spoke with patient who understands plan. Spoke with Orthopedics - they will prescribe the medication for patient in the hospital and for 30 day course. T YARNER documented in this encounter Plan of Treatment Upcoming Encounters Date Type Specialty Care Team Description 05/20/2022 Lab Lab documented as of this encounter Visit Diagnoses Diagnosis Anticardiolipin antibody positive - Prim dillon Other and unspecified nonspecific immuno logical findings Personal history of DVT (deep vein throm bosis) Personal history of venous thrombosis an d embolism documented in this encounter Care Teams Occupational Health And Safety Officer Relationship Specialty Start Date End Date Ian Kendrick MD PCP - General 11/19/07 02/21/14 [facility] [address] [place] [address] documented as of this encounter
--- OUTSIDE RECORDS SUMMARY | 2022-05-15 23:05 | XMS_ITS | Encounter Summary ---
:1955 Author Organization [facility] Address [address] [place] [address] Care Team Providers Name Role Phone Ian Kendrick MD Primary Care Provider [phone] Reason for Visit Reason Onset Date Comments Nurse Advice Line 01/06/2013 Encounter Details Date Type Department Care Team Description 01/06/2013 Telephone [facility] Ian Kendrick Nurse Advice Line [place] MD Jeremiah [address] [place] [address] [facility] [phone] [place] [address] (Wo rk) Social History Tobacco [...] you attend yazidi or Patient refused 2020 orthodoxy services? Do [...] Daysi Sifuentes - 01/06/2013 10:50 AM CDT [facility] Triage Call Report Patient Name: Virgil Christine Call Date & Time: 01/06/2013 12:00:24AM Patient PCP Name: PCP No MRN: Patient Address: [facility] [address] [place] [address] Patient Date of : 1955 Age: 57 yr. Patient Gender: Male Cloud Consultant Name: Jessica Coley Presenting Problem: Virgil is [...] on filedocumented in this encounter Care Teams Sausage Grinder Relationship Specialty Start Date End Date Ian Kendrick MD PCP - General 11/19/07 02/21/14 [facility] [address] [place] [address] documented as of this encounter
--- OUTSIDE RECORDS SUMMARY | 2022-05-15 23:05 | XMS_ITS | Encounter Summary ---
:1955 Author Organization [facility] Address [address] [place] [address] Care Team Providers Name Role Phone Ian Kendrick MD Primary Care Provider Froylan Louise MD Primary Care Provider Unavailable Froylan Louise MD Unavailable Unavailable Froylan Louise MD Unavailable Unavailable Reason for Visit Reason Onset Date Comments Patient Request for Note/Letter 07/09/2013 For excu sing from Agency Entourage duty Encounter Details Date Type Department Care Team Description 07/09/2013 Telephone [facility] Ian Kendrick Request for Clinic Fraser MD Jeremiah Note/Letter (For [address] [facility] [place] [address] [place] CampaignerCRMBob [facility]) [address] [facility] [phone] [place] [address] (Wo rk) Social History Tobacco [...] you attend zoroastrianism or Patient refused 2020 pentecostal services? Do [...] he needs it today. Esthela Merritt, RN ROOFER Telephone Encounter - Rebecca Eldridge - 07/09/2013 2:23 PM CST Name of caller: Virgil Relationship to patient: self Reason for call: Needs a letter faxed to Jury Commissioner , Attn: Amrita. [phone]-fax. Can't Sit in jury duty all day with his arm pain. Date of start: 07/13/2013. Jurerer # [id number] Group # 3. Needs to be done by 4pm. Today. Call back #: [phone] Can leave a detailed VM?: yes Rebecca Chente Patient Control Room Helper ROOFER documented in this encounter Plan of Treatment Upcoming Encounters Date Type Specialty Care Team Description 05/20/2022 Lab Lab documented as of this encounter Visit Diagnoses Not on filedocumented in this encounter Care Teams Trimmer Sorter Relationship Specialty Start Date End Date Ian Kendrick MD PCP - General 11/19/07 02/21/14 [facility] [address] [place] [address] Froylan Louise MD PCP - General Family Practice 02/22/14 Froylan Louise MD PCP - Assigned PCP 03/13/14 08/25/18 Froylan Louise MD Assigned PCP 03/13/14 2 documented as of this encounter
--- OUTSIDE RECORDS SUMMARY | 2022-05-15 23:06 | XMS_ITS | Encounter Summary ---
:1955 Author Organization [place] Address [address] [place] [address] Care Team Providers Name Role Phone Ian Kendrick MD Primary Care Provider [phone] Reason for Visit Reason Onset Date Comments Call To Schedule Appointment 05/27/2012 Dizziness, chills, equilibrium off, concerned for DM Encounter Details Date Type Department Care Team Description 05/27/[address] [facility] Ian Kendrick Call T o Schedule Clinic Chhaya Daniels MD Appointment [address] [facility] (Dizziness, chills, [place], [place] [address] [facility] equilibr ium off, [address] [address] concerned for DM) [phone] [place] [address] (Wo rk) Social History Tobacco [...] you attend mandaeism or Patient refused 2020 judaism services? Do [...] Ian Kendrick MD - 05/27/2012 1:56 PM DOCUMENT CONTROLLER OK to see today or can see another provider tomorrow (I'm not here ) MENT CONTROLLER Telephone Encounter - Esthela Merritt - 05/27/2012 [...] be seen at 315 Esthela Merritt RN MENT CONTROLLER Telephone Encounter - Homa Yao - 05/27/2012 11:45 AM CST *REFUSED FNA* Virgil feels that his equilibrium is off, he has chills, dizziness, and is concerned forDM. He would like to see Dr. Kendrick w/in the next few days as he is leaving for out of town. Pleasecall him to discuss. Thank you MENT CONTROLLER documented in this encounter Plan of Treatment Upcoming Encounters Date Type Specialty Care Team Description 05/20/2022 Lab Lab documented as of this encounter Visit Diagnoses Not on filedocumented in this encounter Care Teams Wire Wrapping Machine Operator Relationship Specialty Start Date End Date Ian Kendrick MD PCP - General 11/19/07 02/21/14 [facility] [address] [place] [address] documented as of this encounter
--- OUTSIDE RECORDS SUMMARY | 2022-05-15 23:06 | XMS_ITS | Encounter Summary ---
:1955 Author Organization [place] Address [address] [place] [address] Care Team Providers Name Role Phone Ian Kendrick MD Primary Care Provider [phone] Reason for Visit Reason Onset Date Comments Medication Request 02/27/2012 abx Encounter Details Date Type Department Care Team Description 02/27/2012 Telephone [facility] Ian Kendrick Medica tion Request [facility] MD Jeremiah (abx ) [address] [place] [address] [place] [address] [facility] [phone] [place] [address] (Wo rk) Social History Tobacco [...] you attend sikh or Patient refused 2020 muslim services? Do [...] on filedocumented in this encounter Care Teams Croze Cutter Relationship Specialty Start Date End Date Ian Kendrick MD PCP - General 11/19/07 02/21/14 [facility] [address] [place] [address] documented as of this encounter
--- OUTSIDE RECORDS SUMMARY | 2022-05-15 23:06 | XMS_ITS | Encounter Summary ---
:1955 Author Organization [place] Address [address] [place] [address] Care Team Providers Name Role Phone Ian Kendrick MD Primary Care Provider Reason for Visit Reason Comments Dizziness URI cough X2 weeks Encounter Details Date Type Department Care Team Description 09/28/2012 Office Visit [facility] Ian Kendrick BPPV ( benign paroxysmal positional vertigo) (Primary Dx); Clinic Chhaya Daniels MD Mild persistent asthma; [address] [place] Acute upper respiratory infe ctions of unspecified site [place], [place] CLINIC [address] 30[address] [facility] [phone] [place] [address] (Wo rk) Social History Tobacco [...] you attend pentecostalism or Patient refused 2020 latter day services? [...] history, are all reviewed and updated in [facility]. Current Outpatient Prescriptions Medication Sig ??? [...] kg).. BP completed using cuff size: large Lennie Quarles MA documented in this encounter Plan of Treatment Upcoming Encounters Date Type Specialty Care Team Description 05/20/2022 Lab Lab documented as of this encounter Visit Diagnoses Diagnosis BPPV (benign paroxysmal positional verti go) - Primary Benign paroxysmal positional vertigo Mild persistent asthma Unspecified asthma Acute upper respiratory infections of un specified site documented in this encounter Care Teams Pneumatic Jacketer Relationship Specialty Start Date End Date Ian Kendrick MD PCP - General 11/19/07 02/21/14 [facility]3] [address] [place] [address] documented as of this encounter
--- OUTSIDE RECORDS SUMMARY | 2022-05-15 23:06 | XMS_ITS | Encounter Summary ---
:1955 Author Organization [place] Address [address] [place] [address] Care Team Providers Name Role Phone Ian Kendrick MD Primary Care Provider [phone] Reason for Visit Reason Onset Date Comments Refill Request 10/29/2011 Encounter Details Date Type Department Care Team Description 10/29/2011 Refill [facility] Ian Kendrick, Refill Request Chhaya VILLASEÑOR [address] [place] [address] [facility] [phone] [facility] N [address] (Wo rk) [...] per pt and pt informed. Marco Pak CLIENT SERVICE REPRESENTATIVE Telephone Encounter - Ian Kendrick MD - [...] Lumbago documented in this encounter Care Teams Timber Feller Relationship Specialty Start Date End Date Ian Kendrick MD PCP - General 11/19/07 02/21/[address] [address] documented as of this encounter
--- OUTSIDE RECORDS SUMMARY | 2022-05-15 23:06 | XMS_ITS | Encounter Summary ---
:1955 Author Organization [place] Address [address] [place] [address] Care Team Providers Name Role Phone Ian Kendrick MD Primary Care Provider [phone] Reason for Visit Reason Onset Date Comments Refill Request 06/25/2012 ipratropium (ATROVEN T HFA) 17 MCG/ACT inhaler and beclomethasone (QVAR ) 80 MCG/ACT Inhaler Encounter Details Date Type Department Care Team Description 06/25/[address] [facility] Ian Kendrick Refill Request Clinic Chhaya Daniels MD (ipratropium (ATROVENT [address] [facility] HFA) 17 MCG/ACT inhaler [place], [place] [address] [facility] and becl omethasone (QVAR) [address] [address] 80 MCG/ACT Inhaler) [phone] [place] [address] (Wo rk) Social History Tobacco [...] you attend congregational or Patient refused 2020 lutheran services? Do [...] months Category: Asthma & COPD/Oral Steroid Inhalers GE PLANT OPERATOR Telephone Encounter - Wendi Lindsay - 06/25/2012 [...] Last OV:05/27/12 Last Refill:04/20/12 Wendi Lindsay CMA GE PLANT OPERATOR documented in this encounter Plan of Treatment Upcoming Encounters Date Type Specialty Care Team Description 05/20/2022 Lab Lab documented as of this encounter Visit Diagnoses Diagnosis Mild persistent asthma - Primary Unspecified asthma documented in this encounter Care Teams Commercial Lending Vice President Relationship Specialty Start Date End Date Ian Kendrick MD PCP - General 11/19/07 02/21/[address] [address] documented as of this encounter
--- OUTSIDE RECORDS SUMMARY | 2022-05-15 23:06 | XMS_ITS | Encounter Summary ---
:1955 Author Organization [facility] Address [address] [place] [address] Care Team Providers Name Role Phone Ian Kendrick MD Primary Care Provider [phone] Reason for Visit Reason Comments Foot Injury NEW, 02/13/2012, jumped down 4 feet from scaffolding and landed on grass, felt swelling and pain 3 day s later, left foot Encounter Details Date Type Department Care Team Description 02/19/2012 Office Visit [facility] Dileep Kendrick Foot inj ury (Primary Orthopedic MD Jose Dx) Care-[facility] [address] [place], [place] [address] [facility] [address] [address] [place], [place] (Work) [address] Social History Tobacco Use Types Packs/Day Years Used Date Smoking Tobacco: Former Cigarettes Smokeless Tobacco: Never Comments: 2005 Alcohol Use Standard Drinks/Week Comments Yes 0 (1 standard drink = 0.6 oz pure alcoho l) 4 BEERS A WEEK Alcohol Habits Answer Date Recorded How often do you have a drink containing 4 or more times a w [place] 05/25/2021 alcohol? How many drinks containing alcohol [...] you attend jainism or Patient refused 2020 roman catholic services? [...] Kendrick MD - 02/19/2012 3:15 PM CDT [facility] Visit s [...] history of related problems. Patient works in [employer]. He has an IVC filter in place, + ACLA. Patient's past medical, surgical, social and family histories are reviewed today. Medical history includes: Patient Active Problem List Diagnoses ??? ULCERATIVE COLITIS NOS ??? VENOUS THROMBOSIS NOS ??? Edema Leg ??? Anticardiolipin Antibody Positive ??? Mild persistent asthma ??? HEALTH JAIL ? ? Hyperlipidemia LDL goal <160 Review [...] as needed for pain. Dileep Kendrick MD, [facility] documented in this [...] foot documented in this encounter Care Teams Spout Tender Relationship Specialty Start Date End Date Ian Kendrick MD PCP - General 11/19/07 02/21/[address] [address] documented as of this encounter
--- OUTSIDE RECORDS SUMMARY | 2022-05-15 23:06 | XMS_ITS | Encounter Summary ---
:1955 Author Organization [place] Address [address] [place] [address] Care Team Providers Name Role Phone Ian Kendrick MD Primary Care Provider [phone] Reason for Visit Reason Onset Date Comments Refill Request 04/16/2012 loperamide (IMODIUM) 2 MG capsule Encounter Details Date Type Department Care Team Description 04/16/2012 Refill [facility] Ian Kendrick Refill Request Clinic Chhaya Daniels MD (loperamide (IMODIUM) 2 [address] [facility] MG capsule) [place], [place] [address] [facility] [address] [facility] [phone] [place] [address] (Wo rk) Social History Tobacco [...] unspecified documented in this encounter Care Teams Manufacturing Shift Supervisor Relationship Specialty Start Date End Date Ian Kendrick MD PCP - General 11/19/07 02/21/14 [facility] [address] [place] [address] documented as of this encounter
--- OUTSIDE RECORDS SUMMARY | 2022-05-15 23:06 | XMS_ITS | Encounter Summary ---
:1955 Author Organization [place] Address [facility] [place] [address] Care Team Providers Name Role Phone Ian Kendrick MD Primary Care Provider [phone] Reason for Referral Referral not Required - Closed Specialty Diagnoses / Procedures Referred By Contact Refer red To Contact Diagnoses Osteoarthritis Knee pain Virgil White DO [facility] ER [address] [place] [address] [address] [place], [place] [phone] Phone: [phone] Fax: Referral ID Status Reason Start Date Expiration Date Visits Requ ested Visits Authorized [id number] Closed 03/23/2012 09/19/2012 1 1 Reason for Visit Reason Comments Knee right chronic, getting worse, cloud les, worse on stairs/ steep grades, feels crack in the knee Encounter Details Date Type Department Care Team Description 03/23/2012 Office Visit [facility] Virgil White Knee pain (Primary Dx); Orthopedic DO Roel Osteoarthritis; [facility] Lateral e picondylitis [facility] [address] [facility], [address] [facility] [address] [place] [address] [phone] Social History Tobacco Use Types Packs/Day Years [...] you attend jain or Patient refused 2020 lutheran services? Do [...] pain 012 9:59 AM CDT view* ORTHO MONITORING MANAGER Referral Routine Osteoarthritis 04/06/2012 REFERRAL Knee pain [...] elbow documented in this encounter Care Teams Hog Room Supervisor Relationship Specialty Start Date End Date Ian Kendrick MD PCP - General 11/19/07 02/21/14 [facility] [address] [place] [address] documented as of this encounter
--- OUTSIDE RECORDS SUMMARY | 2022-05-15 23:06 | XMS_ITS | Encounter Summary ---
:1955 Author Organization [place] Address [address] [place] [address] Care Team Providers Name Role Phone Ian Kendrick MD Primary Care Provider [phone] Reason for Visit Reason Onset Date Comments Nurse Advice Line 04/20/2012 medications refill Encounter Details Date Type Department Care Team Description 04/20/2012 Telephone [facility] Ian Kendrick Nurse Advice Line [facility] MD Jeremiah (medications refill) [address] [place] [address] [place] [address] [facility] [phone] [place] [address] (Wo rk) Social History Tobacco [...] you attend denominational or Patient refused 2020 jain services? Do [...] route back to [place] triage. Marco Pak ELECTRONIC WARFARE LINGUIST Telephone Encounter - Esthela Merritt - 04/20/2012 [...] medications, his insurance is going to end [facility] 04/22 and he will not be able to afford the medication. Can we send in a Rx for a one year supply for the patient.? Best phone number to reach pt at is:[phone] Ok to leave a message with medical info? Pharmacy Information: loperamide (IMODIUM) 2 MG capsule Furosemide (LASIX) 20 MG tablet beclomethasone (QVAR) 80 MCG/ACT inhaler ipratropium (ATROVENT HFA) 17 MCG/ACT inhaler albuterol (PROAIR HFA) 108 (90 BASE) MCG/ACT inhaler Carolin Dawson Sed Special Education Teacher documented in this encounter Plan of Treatment Upcoming Encounters Date Type Specialty Care Team Description 05/20/2022 Lab Lab documented as of this encounter Visit Diagnoses Diagnosis Mild persistent asthma - Primary Unspecified asthma Edema leg Edema documented in this encounter Care Teams Automatic Seamer Relationship Specialty Start Date End Date Ian Kendrick MD PCP - General 11/19/07 02/21/14 [facility] [address] [place] [address] documented as of this encounter
--- OUTSIDE RECORDS SUMMARY | 2022-05-15 23:06 | XMS_ITS | Encounter Summary ---
:1955 Author Organization [place] Address [address] [place] [address] Care Team Providers Name Role Phone Ian Kendrick MD Primary Care Provider [phone] Reason for Visit Reason Onset Date Comments Nurse Advice Line 01/06/2013 back pain Encounter Details Date Type Department Care Team Description 01/06/2013 Telephone [facility] Ian Kendrick Nurse Advice Line Clinic [place] MD Jeremiah (back pain) [address] [place] [address] [place] [address] [facility] [phone] [place] [address] (Wo rk) Social History Tobacco Use Types Packs/Day Years Used Date Smoking Tobacco: Former Cigarettes Smokeless Tobacco: Never Comments: 2004 Alcohol Use Standard Drinks/Week Comments Yes 0 (1 standard drink = 0.6 oz pure alcoho l) 4 BEERS A WEEK Alcohol Habits Answer Date Recorded How often do you have a drink containing 4 or more times a w [place] 05/25/2021 alcohol? How many drinks containing alcohol [...] you attend faith or Patient refused 2020 congregational services? Do [...] if needed Routed to:n/a Lisa Wilde RN [facility] documented in this encounter Plan of Treatment Upcoming Encounters Date Type Specialty Care Team Description 05/20/2022 Lab Lab documented as of this encounter Visit Diagnoses Not on filedocumented in this encounter Care Teams Restoration Silversmith Relationship Specialty Start Date End Date Ian Kendrick MD PCP - General 11/19/07 02/21/14 [facility] [address] [place] [address] documented as of this encounter
--- OUTSIDE RECORDS SUMMARY | 2022-05-15 23:06 | XMS_ITS | Encounter Summary ---
:1955 Author Organization [facility] Address [address] [place] [address] Care Team Providers Name Role Phone Ian Kendrick MD Primary Care Provider Reason for Visit Reason Onset Date Comments Erroneous encounter-disregard 04/20/2012 Encounter Details Date Type Department Care Team Description 04/20/2012 Telephone [facility] Ian Kendrick [facility] MD Jeremiah encounter-disregard [address] [place] [address] [place] [address] [facility] [phone] [place] [address] (Wo rk) Social History Tobacco Use Types Packs/Day Years Used Date Smoking Tobacco: Former Cigarettes Smokeless Tobacco: Never Comments: 2005 Alcohol Use Standard Drinks/Week Comments Yes 0 (1 standard drink = 0.6 oz pure alcoho l) 4 BEERS A WEEK Alcohol Habits Answer Date Recorded How often do you have a drink containing 4 or more times a w [place] 05/25/2021 alcohol? How many drinks containing alcohol [...] you attend religious or Patient refused 2020 yazidism services? Do [...] on filedocumented in this encounter Care Teams Scrap Breaker Relationship Specialty Start Date End Date Ian Kendrick MD PCP - General 11/19/07 02/21/14 [place] [address] [place] [address] documented as of this encounter
--- OUTSIDE RECORDS SUMMARY | 2022-05-15 23:06 | XMS_ITS | Encounter Summary ---
:1955 Author Organization [place] Address [address] [place] [address] Care Team Providers Name Role Phone Ian Kendrick MD Primary Care Provider Reason for Visit Reason Onset Date Comments Refill Request 08/12/2012 Pro air Encounter Details Date Type Department Care Team Description 08/12/2012 Refill [facility] Ian Kendrick Refill Request ([facility] [place] MD Jeremiah air) [address] [place] [address] [place] [phone] [facility] [phone] [place] [address] (Wo rk) Social History Tobacco Use Types Packs/Day Years Used Date Smoking Tobacco: Former Cigarettes Smokeless Tobacco: Never Comments: 2005 Alcohol Use Standard Drinks/Week Comments Yes 0 (1 standard drink = 0.6 oz pure alcoho l) 4 BEERS A WEEK Alcohol Habits Answer Date Recorded How often do you have a drink containing 4 or more times a w [place] 05/25/2021 alcohol? How many drinks containing [...] you attend buddhist or Patient refused 2020 bahai services? Do [...] Chacha Laboy - 08/12/2012 10:34 AM CST [phone] Is pt still in [place]? Attempted to call him and no answer. Will refill to the [facility] in [place] and if he needs it in [place] indicated they can transfer it to him. [...] make OV Category: Asthma & COPD/Bronchodialtor Inhalers [place] LOAN ORIGINATOR ASSISTANT documented in this encounter Plan of Treatment Upcoming Encounters Date Type Specialty Care Team Description 05/20/2022 Lab Lab documented as of this encounter Visit Diagnoses Diagnosis Mild persistent asthma - Primary Unspecified asthma documented in this encounter Care Teams Lithograph Operator Relationship Specialty Start Date End Date Ian Kendrick MD PCP - General 11/19/07 02/21/14 [place] [address] [place] [address] documented as of this encounter
--- OUTSIDE RECORDS SUMMARY | 2022-05-15 23:06 | XMS_ITS | Encounter Summary ---
:1955 Author Organization [place] Address [address] [place] [address] Care Team Providers Name Role Phone Ian Kendrick MD Primary Care Provider [phone] Encounter Details Date Type Department Care Team Description 03/23/[address] [facility] Virgil Morelos Knee pain; [facility] DO Roel Osteoarthritis [address] [facility] [address] 88[address] [facility] [phone] [place] [address] (Wo rk) Social History Tobacco [...] you attend uatsdin or Patient refused 2020 islam services? Do [...] site documented in this encounter Care Teams Fixed Capital Clerk Relationship Specialty Start Date End Date Ian Kendrick MD PCP - General 11/19/07 02/21/14 [facility] [address] [place] [address] documented as of this encounter
--- OUTSIDE RECORDS SUMMARY | 2022-05-15 23:06 | XMS_ITS | Encounter Summary ---
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 Do [...] elbow documented in this encounter Care Teams Dinkey Motor Operator Relationship Specialty Start Date End Date Ian Kendrick MD PCP - General 11/19/07 02/21/14 [place] [address] [place] [address] documented as of this encounter
--- OUTSIDE RECORDS SUMMARY | 2022-05-15 23:06 | XMS_ITS | Encounter Summary ---
:1955 Author Organization [place] Address [address] [place] [address] Care Team Providers Name Role Phone Ian Kendrick MD Primary Care Provider [phone] Reason for Visit Reason Onset Date Comments Refill Request 01/03/2012 Encounter Details Date Type Department Care Team Description 01/03/[address] [facility] Ian Kendrick, Refill Request Chhaya VILLASEÑOR [address] [place] [address]1 [facility] [phone] [facility] N [address] (Wo rk) Social History [...] Edema documented in this encounter Care Teams Clinical Coder Relationship Specialty Start Date End Date Ian Kendrick MD PCP - General 11/19/07 02/21/[address] [address] documented as of this encounter
--- OUTSIDE RECORDS SUMMARY | 2022-05-15 23:06 | XMS_ITS | Encounter Summary ---
:1955 Author Organization [place] Address [address] [place] [address]. [place] [address] Care Team Providers Name Role Phone Ian Kendrick MD Primary Care Provider Reason for Referral - Closed Specialty Diagnoses / Procedures Referred By Contact Refer red To Contact Diagnoses Back pain Janeth Esparza MD SKIN REJUVENATION [facility] [address] [place] [address] Referral ID Status Reason Start Date Expiration Date Visits Requ ested Visits Authorized [id number] Closed 01/06/2013 07/05/2013 1 1 Reason for Visit Reason Comments Back Pain Encounter Details Date Type Department Care Team Description 01/06/2013 Emergency [facility] Janeth Esparza Ba ck pain (Primary [facility] Emergency Dep t MD Dx) [address] SKIN [place] [place] [address] [place] [phone] [address] [place] [address] (Wo rk) Social History Tobacco [...] you attend gnosticism or Patient refused 2020 pentecostalism services? Do [...] 1. Right back pain 2. Sciatica I, Mabletonchetan Simms, am serving as a scribe at 1:00 AM on 01/06/2013 to document services personally performed by Dr. Esparza, based on my observations and the provider's statements to me. Marc Mendez 01/06/2013 [facility] Janeth Esparza MD 01/07/13 0637 [...] Name Type Priority Associated Diagnoses [facility] REF[facility] Referral Routine Back pain Ord [...] pain documented in this encounter Care Teams Material Handler Relationship Specialty Start Date End Date Ian Kendrick MD PCP - General 11/19/07 02/21/14 [place] [address] [place] [address] documented as of this encounter
--- OUTSIDE RECORDS SUMMARY | 2022-05-15 23:06 | XMS_ITS | Encounter Summary ---
:1955 Author Organization [place] Address [address] [place] [address] Care Team Providers Name Role Phone Ian Kendrick MD Primary Care Provider [phone] Reason for Visit Reason Comments Knee right f/u, Synsvic Encounter Details Date Type Department Care Team Description 05/26/2012 Office Visit [facility] Virgil White OA (osteoa rthritis) Orthopedic DO Roel of knee (Primary Dx) Care-[facility] [address] [facility], [address] [facility] [address] [place] [address] [phone] Social History Tobacco Use Types Packs/Day Years [...] Comments Blood Pressure 128/84 05/26/2012 5:00 PM DOG DAY CARE ATTENDANT Pulse - - Temperature - - Respiratory Rate - - Oxygen Saturation - - Inhaled Oxygen Concentration - - Weight 104.3 kg (230 lb) 05/26/2012 5:00 PM DOG DAY CARE ATTENDANT Height 182.9 cm (6') 05/26/2012 5:00 PM DOG DAY CARE ATTENDANT Body Mass Index 31.19 05/26/2012 5:00 PM DOG DAY CARE ATTENDANT documented in this encounter Progress Notes Virgil [...] right. Virgil tolerated theprocedure well without complications. DAY CARE ATTENDANT documented in this encounter Nursing Notes 05/26/2012 [...] HC DRAIN/INJ MAJOR Routine 05/26/2012 5:09 PM DOG DAY CARE ATTENDANT OA (osteoart hritis) of JOINT/BURSA W/O US knee documented in this encounter Visit Diagnoses Diagnosis OA (osteoarthritis) of knee - Primary Osteoarthrosis, unspecified whether gene ralized or localized, lower leg documented in this encounter Care Teams Relief Master Relationship Specialty Start Date End Date Ian Kendrick MD PCP - General 11/19/07 02/21/14 [facility] [address] [place] [address] documented as of this encounter
--- OUTSIDE RECORDS SUMMARY | 2022-05-15 23:06 | XMS_ITS | Encounter Summary ---
:1955 Author Organization [place] Address [address] [place] [address] Care Team Providers Name Role Phone Ian Kendrick MD Primary Care Provider [phone] Reason for Visit Reason Onset Date Comments Results 03/24/2012 MRI knee results Encounter Details Date Type Department Care Team Description 03/24/2012 Telephone [place] [facility] C[facility], Destiny Marin (MRI knee Orthopedic DO results) Care-[facility] OR[facility]OP[facility]IC [facility] CENTER [address] [facility], [address]100 [facility] 100 [place] [address] [place], [place] [phone] (Wo rk) [address] [phone] Social History Tobacco Use Types Packs/Day Years [...] you attend jain or Patient refused 2020 yazidism services? Do [...] on filedocumented in this encounter Care Teams Pipe Bowl Paint Trimmer Relationship Specialty Start Date End Date Ian Kendrick MD PCP - General 11/19/07 02/21/14 [place] [address] [place] [address] documented as of this encounter
--- OUTSIDE RECORDS SUMMARY | 2022-05-15 23:06 | XMS_ITS | Encounter Summary ---
:1955 Author Organization [place] Address [address] [place] [address] Care Team Providers Name Role Phone Ian Kendrick MD Primary Care Provider [phone] Reason for Visit Reason Onset Date Comments Dizziness 09/24/2012 Encounter Details Date Type Department Care Team Description 09/24/2012 Telephone [facility] [place] [address] [place] [address]64 [facility] [phone] [facility] [address] (Wo rk) Social History Tobacco [...] you attend quaker or Patient refused 2020 latter-day services? 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 Pt will try the exercises and cancel appt if these help. Pt again advised to see pcp to r/o cardiac issues. Chacha Laboy RN. documented in this encounter Plan of Treatment Upcoming Encounters Date Type Specialty Care Team Description 05/20/2022 Lab Lab documented as of this encounter Visit Diagnoses Not on filedocumented in this encounter Care Teams Instructional Facilitator Relationship Specialty Start Date End Date Ian Kendrick MD PCP - General 11/19/07 02/21/14 [facility] [address] [place] [address] documented as of this encounter
--- OUTSIDE RECORDS SUMMARY | 2022-05-15 23:06 | XMS_ITS | Encounter Summary ---
:1955 Author Organization [place] Address [address] [place] [address] Care Team Providers Name Role Phone Ian Kendrick MD Primary Care Provider [phone] Reason for Visit Reason Comments Dizziness off and on for a month. feel better after eating. Encounter Details Date Type Department Care Team Description 05/27/2012 Office Visit [facility] Ian Kendricku e (Primary Dx); Clinic Chhaya Daniels MD Lightheadedness; [address] [facility] Nausea; [place], [place] CLINIC Mild persistent asthma [phone] [address] [facility] [phone] [place] [address] (Wo rk) Social History Tobacco [...] you attend rastafarian or Patient refused 2020 zoroastrianism services? Do [...] Comments Blood Pressure 140/88 05/27/2012 3:24 PM IN FILE OPERATOR Pulse 86 05/27/2012 3:24 PM IN FILE OPERATOR Temperature 37.1 ??C (98.7 ??F) 05/27/2012 3:24 PM IN FILE OPERATOR Respiratory Rate - - Oxygen Saturation 96% 05/27/2012 3:24 PM IN FILE OPERATOR Inhaled Oxygen Concentration - - Weight 110.7 kg (244 lb) 05/27/2012 3:24 PM IN FILE OPERATOR Height 182.9 cm (6') 05/27/2012 3:24 PM IN FILE OPERATOR Body Mass Index 33.09 05/27/2012 3:24 PM IN FILE OPERATOR documented in this encounter Progress Notes [...] history, are all reviewed and updated in [facility]. Current Outpatient Prescriptions Medication Sig ??? [...] asthma Comment: Plan: Asthma Action Plan (AAP) FILE OPERATOR documented in this encounter Nursing Notes 05/27/2012 [...] large Health maintenance- aap today Marcochetan Pak BEAUTY ADVISOR documented in this encounter Plan of Treatment Upcoming Encounters Date Type Specialty Care Team Description 05/20/2022 Lab Lab documented as of this encounter Procedures Procedure Name Priority Date/Time Associated Comments Diagnosis EKG 12-LEAD COMPLETE Routine 05/27/2012 4:17 PM Fatigue Results for this W/READ - CLINICS IN FILE OPERATOR Lightheadedness procedure are in Nausea the results section. UA MACROSCOPIC WITH Routine 05/27/2012 3:58 PM Nausea Re sults for this REFLEX TO MICROSCOPIC IN FILE OPERATOR proced ure are in AND CULTURE the results section. VITAMIN D DEFICIENCY Routine 05/27/2012 3:57 PM Fatigue R esults for this SCREENING IN FILE OPERATOR procedure are i n the results section. TSH WITH FREE T4 Routine 05/27/2012 3:57 PM Fatigue Resul ts for this REFLEX IN FILE OPERATOR procedure are i n the results section. CRP INFLAMMATION Routine 05/27/2012 3:57 PM Fatigue Results for this IN FILE OPERATOR Lightheadedness procedure are in Nausea the results section. COMPREHENSIVE Routine 05/27/2012 3:57 PM Fatigue Results for this METABOLIC PANEL IN FILE OPERATOR Lightheadedness procedure are in Nausea the results section. CBC WITH PLATELETS Routine 05/27/2012 3:57 PM Fatigue Results for this IN FILE OPERATOR Lightheadedness procedure are in Nausea the results section. XR CHEST 2 VIEWS Routine 05/27/2012 3:56 PM Fatigue Results for this IN FILE OPERATOR Lightheadedness procedure are in Nausea the results section. ASTHMA ACTION PLAN Routine 05/27/2012 3:16 PM Mild persistent IN FILE OPERATOR asthma documented in this encounter Results EKG 12-lead complete w/read - Clinics (05/27/2012 4:17 PM IN FILE OPERATOR) Narrative This result has an attachment that is no t available. Ian Kendrick MD ECG ORDERABLES UA reflex to Microscopic and Culture (05/27/2012 3:58 PM IN FILE OPERATOR) [facility] Method Time Signature Color Urine Yellow [facility] Appearance Urine Clear [facility] Glucose Urine Negative NEG mg/dL [facility] Bilirubin Urine Negative NEG [facility] Ketones Urine Negative NEG mg/dL [facility] Specific [place] >1.030 1.003 - [place] Urine 1.035 [facility] Blood Urine Negative NEG [facility] pH Urine 5.0 5.0 - 7.0 [place] pH [facility] Protein Albumin Negative NEG mg/dL [facility] Urobilinogen 0.2 0.2 - 1.0 [place] Urine EU/dL [facility] Nitrite Urine Negative NEG [facility] Leukocyte Negative NEG [place] Esterase Urine [facility] Source Midstream [place] Urine [facility] Specimen Anatomical Collection Method Collection Time Receive d Time (Source) Location / / Volume Laterality Urine specimen 05/27/2012 3:58 PM 012 3:59 (specimen) IN FILE OPERATOR PM IN FILE OPERATOR Ian Kendrick MD LAB - URINE ORDERABLES Performing Organization Address City/State/ZIP Code Phon e Number [facility] [address] [place] [address] [facility] (ABNORMAL) CRP inflammation (05/27/2012 3:57 PM IN FILE OPERATOR) Patholo gist Method Time Signature CRP Inflammation 15.8 (H) 0.0 - 8.0 [facility] mg/L [facility] Specimen Anatomical Collection Method Collection Time Receive d Time (Source) Location / / Volume Laterality Blood specimen 05/27/2012 3:57 PM 012 3:58 (specimen) IN FILE OPERATOR PM IN FILE OPERATOR Ian Kendrick MD LAB - BLOOD ORDERABLES Performing Organization Address City/State/ZIP Code Phon e Number [facility] [address] [place] [address] [facility] (ABNORMAL) Vitamin D Deficiency (05/27/2012 3:57 PM IN FILE OPERATOR) P athologist Signature Vitamin D 29 (L) 30 - 75 [facility] Deficiency ug/L [facility] Comment: Season, race, dietary intake, and treatm ent affect the concentration of 22-xdskiqv-Poeaydx D. Values may decrea se during winter [...] questions, pl ease contact the laboratory at [phone]. Specimen Anatomical Collection Method Collection Time Receive d Time (Source) Location / / Volume Laterality Blood specimen 05/27/2012 3:57 PM 012 3:58 (specimen) IN FILE OPERATOR PM IN FILE OPERATOR Ian Kendrick MD LAB - BLOOD ORDERABLES Performing Organization Address City/State/ZIP Code Phon e Number [facility] [address] [place] [address] [facility] TSH with free T4 reflex (05/27/2012 3:57 PM IN FILE OPERATOR) athologist Signature TSH 1.89 0.4 - 5.0 [place] [facility]/L [facility]IN[facility] LAB Specimen Anatomical Collection Method Collection Time Receive d Time (Source) Location / / Volume Laterality Blood specimen 05/27/2012 3:57 PM 012 3:58 (specimen) IN FILE OPERATOR PM IN FILE OPERATOR Ian Kendrick MD LAB - BLOOD ORDERABLES Performing Organization Address City/State/ZIP Code Phon e Number [facility] [address], [place] [address] [facility] (ABNORMAL) Comprehensive metabolic panel (05/27/2012 3:57 PM IN FILE OPERATOR) athologist Signature Sodium 137 133 - 144 [place] mmol/L [facility] Potassium 4.2 3.4 - 5.3 [place] mmol/L [facility] Chloride 102 94 - 109 [place] mmol/L [facility] Carbon Dioxide 21 20 - 32 [place] mmol/L [facility] Anion Gap 13 6 - 17 [place] mmol/L [facility] Glucose 112 (H) 60 - 99 [place] mg/dL [facility] Urea Nitrogen 19 7 - 30 [place] mg/dL [facility] Creatinine 0.79 0.66 - [facility] 1.25 mg/dL [facility] GFR Estimate >90 >60 [place] mL/min/1.[address] [facility] m2 LAB GFR Estimate If >90 >60 [place] Black mL/min/1.[address] [facility] [facility] m2 LAB Calcium 9.7 8.5 - 10.4 [place] mg/dL [facility] Bilirubin Total 1.0 0.2 - 1.3 [place] mg/dL [facility] Albumin 4.1 3.9 - 5.1 [place] g/dL [facility] Comment: Reference range changed on 02/22. Protein Total 7.4 6.8 - 8.8 g/dL [facility] Comment: As of 07, reference range reflects plasma specimen type. Alkaline Phosphatase 95 40 - 150 U/L [facility] ALT 45 0 - 70 U/L [facility] LAB AST 35 0 - 45 U/L [facility] LAB Specimen Anatomical Collection Method Collection Time Receive d Time (Source) Location / / Volume Laterality Blood specimen 05/27/2012 3:57 PM 012 3:58 (specimen) IN FILE OPERATOR PM IN FILE OPERATOR Ian Kendrick MD LAB - BLOOD ORDERABLES Performing Organization Address City/[facility]/ZIP Code Phon e Number [facility] [address] [place] [address] [facility] CBC with platelets (05/27/2012 3:57 PM IN FILE OPERATOR) P athologist Signature WBC 6.1 4.0 - 11.0 [place] 10e9/L [facility] RBC Count 4.87 4.4 - 5.9 [place] 10e12/L [facility] Hemoglobin 15.4 13.3 - [facility] 17.7 g/dL [facility] Hematocrit 45.1 40.0 - [facility] 53.0 % [facility] MCV 93 78 - 100 [facility] MCH 31.6 26.5 - [facility] 33.0 pg [facility] MCHC 34.1 31.5 - [facility] 36.5 g/dL [facility] RDW 12.9 10.0 - [facility] 15.0 % [facility] Platelet Count 163 150 - 450 [place] 10e9/L [facility] Specimen Anatomical Collection Method Collection Time Receive d Time (Source) Location / / Volume Laterality Blood specimen 05/27/2012 3:57 PM 012 3:58 (specimen) IN FILE OPERATOR PM IN FILE OPERATOR Ian Kendrick MD LAB - BLOOD ORDERABLES Performing Organization Address City/[facility]/ZIP Code Phon e Number [facility] [address] [place] [address] [facility] X-ray Chest 2 vws* (05/27/2012 3:56 PM IN FILE OPERATOR) Anatomical Region Laterality Modality Chest Other Specimen (Source) Anatomical Collection Method Collection Time Re ceived Time Location / / Volume Laterality 05/27/2012 3:56 PM IN FILE OPERATOR Narrative 05/28/2012 5:26 AM IN FILE OPERATOR CHEST TWO VIEWS ??05/27/2012 3:56 PM HISTORY: ??Malaise. COMPARISON: 01/10/2008. FINDINGS: Negative chest. No interval ch joni. JONATAN AUGUST MD Procedure Note Jonatan August MD - 05/28/2012Forma tting of this note might be different from the original. CHEST TWO VIEWS 05/27/2012 3:56 PM HISTORY: Malaise. COMPARISON: 01/10/2008. FINDINGS: Negative chest. No interval ch joni. JONATAN AUGUST MD Ian Kendrick MD IMG DIAGNOSTIC IMAGING ORDER SADIQ documented in this encounter Visit Diagnoses Diagnosis Fatigue - Primary Other malaise and fatigue Lightheadedness Dizziness and giddiness Nausea Nausea alone Mild persistent asthma Unspecified asthma documented in this encounter Care Teams Laboratory Director Relationship Specialty Start Date End Date Ian Kendrick MD PCP - General 11/19/07 02/21/14 [facility] [address] [place] [address] documented as of this encounter
--- OUTSIDE RECORDS SUMMARY | 2022-05-15 23:06 | XMS_ITS | Encounter Summary ---
:1955 Author Organization [place] Address [address] [place] [address] Care Team Providers Name Role Phone Ian Kenrdick MD Primary Care Provider Reason for Visit Reason Onset Date Comments Patient Request for Note/Letter 06/02/2012 Encounter Details Date Type Department Care Team Description 06/02/2012 Telephone [facility] Ian Kendrick t Request for Clinic Chhaya Daniels MD Note/Letter [address] [place], [place] [address] [facility] [address] [facility] [phone] [place] [address] (Wo rk) Social History Tobacco [...] you attend sabianism or Patient refused 2020 yarsanism services? Do [...] 3:28 PM CST Patient informed. Brought to lockstitch front edge tape sewer. Irma Dunaway Cab Station Attendant ENT WRITER Telephone Encounter - Ian Kendrick MD - 06/02/2012 2:40 PM CONTENT WRITER Letter completed. See nurse's inbox. ENT WRITER Telephone Encounter - Marco Pak - 06/02/2012 [...] will start the letter. Marco Pak CMA ENT WRITER documented in this encounter Plan of Treatment Upcoming Encounters Date Type Specialty Care Team Description 05/20/2022 Lab Lab documented as of this encounter Visit Diagnoses Not on filedocumented in this encounter Care Teams Whale Trainer Relationship Specialty Start Date End Date Ian Kendrick MD PCP - General 11/19/07 02/21/14 [place] [address] [place] [address] documented as of this encounter
--- OUTSIDE RECORDS SUMMARY | 2022-05-15 23:06 | XMS_ITS | Encounter Summary ---
:1955 Author Organization [place] Address [address] [place] [address] Care Team Providers Name Role Phone Ian Kendrick MD Primary Care Provider [phone] Reason for Visit Reason Onset Date Comments Refill Request 12/24/2011 amoxil Encounter Details Date Type Department Care Team Description 12/24/2011 Refill [facility] Ian Kendrick Refill Request (amoxil) Clinic [place] MD Jerem[place] [address] [place] [address] [place] [phone] [facility] [phone] [place] [address] (Wo rk) Social History Tobacco [...] you attend taoist or Patient refused 2020 baptist services? Do [...] on filedocumented in this encounter Care Teams Adoption Social Worker Relationship Specialty Start Date End Date Ian Kendrick MD PCP - General 11/19/07 02/21/14 [place] [address] [place] [address] documented as of this encounter
--- OUTSIDE RECORDS SUMMARY | 2022-05-15 23:06 | XMS_ITS | Encounter Summary ---
:1955 Author Organization [place] Address [address] [place] [address] Care Team Providers Name Role Phone Ian Kendrick MD Primary Care Provider [phone] Reason for Visit Reason Onset Date Comments Other 12/16/2011 med request Encounter Details Date Type Department Care Team Description 12/16/2011 Telephone [facility] Ian Kendrick Other (med request) [facility] MD [place] [address] [place] [address] [place] [phone] [facility] [phone] [place] [address] (Wo rk) Social History Tobacco [...] you attend nondenominational or Patient refused 2020 latter day services? [...] on filedocumented in this encounter Care Teams Cardiac Exercise Specialist Relationship Specialty Start Date End Date Ian Kendrick MD PCP - General 11/19/07 02/21/14 [facility] [address] [place] [address] documented as of this encounter
--- OUTSIDE RECORDS SUMMARY | 2022-05-15 23:07 | XMS_ITS | Encounter Summary ---
:1955 Author Organization [place] Address [address] [place] [address] Care Team Providers Name Role Phone Ian Kendrick MD Primary Care Provider [phone] Reason for Visit Reason Onset Date Comments Medication Question 07/13/2010 lasix dosage Encounter Details Date Type Department Care Team Description 07/13/2010 Telephone [facility] Ian Kendrick Medica tion Question Clinic Keuka Parksandee Daniels MD (lasix dosage) [address] [place] [address] [place] [phone] [facility] [phone] [place] [address] (Wo rk) Social History Tobacco [...] you attend baptism or Patient refused 2020 tenriism services? Do [...] of msg and agrees to this plan. CUTTER Telephone Encounter - Ian Kendrick - 07/13/2010 [...] he should be seen out in [place]. CUTTER Telephone Encounter - Jessica Lee - 07/13/2010 [...] stated would call clinic back this afternoon. CUTTER documented in this encounter Plan of Treatment Upcoming Encounters Date Type Specialty Care Team Description 05/20/2022 Lab Lab documented as of this encounter Visit Diagnoses Not on filedocumented in this encounter Care Teams Dust Handler Relationship Specialty Start Date End Date Ian Kendrick MD PCP - General 11/19/07 02/21/14 [facility] [address] [place] [address] documented as of this encounter
--- OUTSIDE RECORDS SUMMARY | 2022-05-15 23:07 | XMS_ITS | Encounter Summary ---
:1955 Author Organization [place] Address [address] [place] [address] Care Team Providers Name Role Phone Ian Kendrick MD Primary Care Provider [phone] Reason for Referral Referral not Required - Closed Specialty Diagnoses / Procedures Referred By Contact Refer red To Contact Orthopedics and Sports Diagnoses Left shoulder pain Ian Kendrick [facility] Medicine MD Jeremiah [facility] [address] [place] [address] [facility] [address] [place] [address] Phone: [phone] Fax: [phone] Referral ID Status Reason Start Date Expiration Date Visits Requ ested Visits Authorized [id number] Closed 09/11/2011 03/09/2012 1 1 Reason for Visit Reason Onset Date Comments Other 09/11/2011 L shoulder Encounter Details Date Type Department Care Team Description 09/11/2011 Telephone [facility] Ian Kendrick Other (L shoulder) [place] [address] [place] [address] [facility] [phone] [place] [address] (Wo rk) Social History Tobacco [...] you attend sikh or Patient refused 2020 caodaism services? Do [...] see SM. Pt was given the # [phone] for [facility]. Pt will call his insurance and see if they will cover this. Chacha Laboy RN. Telephone Encounter - Ian Kendrick MD - 09/11/2011 11:56 AM CDT He may not benefit from an injection, but I can give him a referral for an evaluation through [facility]. referral for Ortho Cutter Plastics Rolls pended. Please approve if he would like. [...] ath med? Pt can be reached at [phone]. Chacha Laboy RN. documented in this encounter Plan of Treatment Upcoming Encounters Date Type Specialty Care Team Description 05/20/2022 Lab Lab documented as of this encounter Visit Diagnoses Diagnosis Left shoulder pain - Primary Pain in joint, shoulder region documented in this encounter Care Teams Package Car Driver Relationship Specialty Start Date End Date Ian Kendrick MD PCP - General 11/19/07 02/21/14 [facility] [address] [place] [address] documented as of this encounter
--- OUTSIDE RECORDS SUMMARY | 2022-05-15 23:07 | XMS_ITS | Encounter Summary ---
:1955 Author Organization [place] Address [address] [place] [address] Care Team Providers Name Role Phone Ian Kendrick MD Primary Care Provider [phone] Reason for Visit Reason Comments Recheck Medication needed precription update Encounter Details Date Type Department Care Team Description 04/18/2010 Office Visit [facility] Ian Kendrick Mild p ersistent asthma (Primary Dx); Clinic Chhaya Daniels MD ULCERATIVE COLITIS NOS; [address] [facility] BAUDILIONORMAN VENOUS THROMBOSIS NOS; [place], [place] CLINIC Lateral epicondylitis; [address] [address] Erectile dysfunction; [phone] [place] [address] (Wo rk) Social History Tobacco [...] you attend protestant or Patient refused 2020 yazidi services? Do [...] who presents for evaluation of: Here in [place] for a few weeks, lives in [place] for the next 6 months, then returning to [place] permanently (plan) OTHER DYSPNEA AND RESPIRATORY ABNORMALITY UNSPECIFIED ULCERATIVE COLITIS EMBOLISM AND THROMBOSIS OF UNSPECIFIED SITE LATERAL EPICONDYLITIS ERECTILE DYSFUNCTION INSOMNIA See below for details. Problems list, allergies, social and family history, and past medical history, are all reviewed and updated in [facility]. Current outpatient prescriptions ordered prior to [...] edema in right leg, improved over previously. uoqu-qy-mqxezqxr localized, nonerythematous swelling over lateral epicondyle. smooth [...] FOR DME, ORDER FOR DME Hematology in [place] has advised the patient he can go [...] greater than 50% of 25 minutes of xlqw-ur-qpkn time counseling patient and/or coordinating care regarding [...] unspecified documented in this encounter Care Teams Master Police Detective Relationship Specialty Start Date End Date Ian Kendrick MD PCP - General 11/19/07 02/21/14 [facility] [address] [place] [address] documented as of this encounter
--- OUTSIDE RECORDS SUMMARY | 2022-05-15 23:07 | XMS_ITS | Encounter Summary ---
:1955 Author Organization [place] Address [address] [place] [address] Care Team Providers Name Role Phone aIn Kendrikc MD Primary Care Provider [phone] Reason for Visit Reason Onset Date Comments CORPSMAN - INTRODUCTION 07/11/2011 Proactive Pa tient Outreach Encounter Details Date Type Department Care Team Description 07/11/2011 Telephone [facility] Ian Kendrick ANAGER - [place] MD INTRODUCTION (Proactive [address] [facility] Patient Outreach) [facility] [phone] 8357 [facility] [phone] [place] [address] (Wo rk) Social History Tobacco [...] you attend restoration or Patient refused 2020 hindu services? Do [...] He does fill them at [facility] in [place], and states that they are very reliable. He does not have any troubles taking his medications. Education: Encouraged patient to call clinic with concerns; informed patient of nurse availability 13/01 through clinic number, and urgent care facilities for after hours needs. Follow up: Patient will follow up with PCP as needed. No further outreach needed at this time. Rose Gonzalez Care Coordination Truck Cleaner ERN ASSEMBLER Telephone Encounter - Michelle Mejia - 07/11/2011 5:10 PM CST Patient called back to let Rose know he is fine and no need to see Dr. Kendrick. ERN ASSEMBLER Telephone Encounter - Rose Gonzalez - 07/11/2011 4:34 PM CST Outreached to patient identified through risk stratification; no answer, left message with my phone number requesting a callback. I will try back another time. Rose Gonzalez Care Coordination QualityLefermin. ERN ASSEMBLER documented in this encounter Plan of Treatment Upcoming Encounters Date Type Specialty Care Team Description 05/20/2022 Lab Lab documented as of this encounter Visit Diagnoses Not on filedocumented in this encounter Care Teams Mattress And Boxsprings Supervisor Relationship Specialty Start Date End Date Ian Kendrick MD PCP - General 11/19/07 02/21/14 [place] [id number] [place] [address] documented as of this encounter
--- OUTSIDE RECORDS SUMMARY | 2022-05-15 23:07 | XMS_ITS | Encounter Summary ---
:1955 Author Organization [place] Address [address] [place] [address] Care Team Providers Name Role Phone Ian Kendrick MD Primary Care Provider [phone] Reason for Visit Reason Onset Date Comments Refill Request 04/05/2011 Encounter Details Date Type Department Care Team Description 04/05/2011 Refill [facility] Ian Kendrick, Refill Request Chhaya VILLASEÑOR [address] [place] [address] 6290 [facility] [phone] [facility] [address] (Wo rk) Social History Tobacco [...] asthma documented in this encounter Care Teams Director Perioperative Relationship Specialty Start Date End Date Ian Kendrick MD PCP - General 11/19/07 02/21/14 [place] [address] [place] [address] documented as of this encounter
--- OUTSIDE RECORDS SUMMARY | 2022-05-15 23:07 | XMS_ITS | Encounter Summary ---
:1955 Author Organization [place] Address [address] [place] [address] Care Team Providers Name Role Phone Ian Kendrick MD Primary Care Provider [phone] Reason for Visit Reason Onset Date Comments Other 11/27/2010 returning call from letter sent Encounter Details Date Type Department Care Team Description 11/27/2010 Telephone [facility] Ian Kendrick Other (returning call Clinic Chhaya Daniels MD from letter sent) [address] [place] [address] [place] [phone] [facility] [phone] [place] [address] (Wo rk) Social History Tobacco [...] on filedocumented in this encounter Care Teams Marker Assembler Relationship Specialty Start Date End Date Ian Kendrick MD PCP - General 11/19/07 02/21/14 [facility] [address] [place] [address] documented as of this encounter
--- OUTSIDE RECORDS SUMMARY | 2022-05-15 23:07 | XMS_ITS | Encounter Summary ---
:1955 Author Organization [place] Address [address] [place] [address] Care Team Providers Name Role Phone Ian Kendrick MD Primary Care Provider [phone] Reason for Visit Reason Onset Date Comments Refill Request 12/12/2009 Encounter Details Date Type Department Care Team Description 12/12/2009 Refill [facility] Ian Kendrick, Refill Request Chhaya VILLASEÑOR [address] [place] [address]21 [facility] [phone] [facility] N [address] (Wo rk) Social [...] you attend jainism or Patient refused 2020 sabianism services? Do [...] unspecified documented in this encounter Care Teams Farmworker Field Crop Relationship Specialty Start Date End Date Ian Kendrick MD PCP - General 11/19/07 02/21/14 [place] [address] [place] [address] documented as of this encounter
--- OUTSIDE RECORDS SUMMARY | 2022-05-15 23:07 | XMS_ITS | Encounter Summary ---
:1955 Author Organization [place] Address [address] [place] [address] Care Team Providers Name Role Phone Ian Kendrick MD Primary Care Provider [phone] Reason for Visit Reason Onset Date Comments Consult 11/14/2010 Encounter Details Date Type Department Care Team Description 11/14/2010 Telephone [facility] Ian Kendrick, Consult Chhaya VILLASEÑOR [address] [place] [address]284 [facility] [phone] [facility] N [address] (Wo rk) [...] you attend restorationist or Patient refused 2020 episcopal services? Do [...] Chacha Laboy - 11/23/2010 10:05 AM CDT [phone]. Unable to reach pt at this #. [...] for review/advise Caller agrees with this plan/advise. [facility] - [id number] - [place] [phone] (home) May leave medical information with voicemail / answering machine Chacha Laboy RN. Telephone Encounter - Chacha Laboy - 11/21/2010 10:55 AM CDT Attempted to call pt x2 to get additional information. LVM for pt to call back. Chacha Laboy RN. Telephone Encounter - Carolin Dawson - 11/16/2010 1:10 PM CDT Patient called back and please call him at [phone]. Carolin Dawson Reed Repairer Telephone Encounter - Chacha Laboy - 11/16/2010 [...] no insurance. Pt can be reached at [phone]. Thanks! Lucila Kevin, Patient Rep. documented in this encounter Plan of Treatment Upcoming Encounters Date Type Specialty Care Team Description 05/20/2022 Lab Lab documented as of this encounter Visit Diagnoses Not on filedocumented in this encounter Care Teams Marble And Granite Polisher Relationship Specialty Start Date End Date Ian Kendrick MD PCP - General 11/19/07 02/21/14 [facility] [address] [place] [address] documented as of this encounter
--- OUTSIDE RECORDS SUMMARY | 2022-05-15 23:07 | XMS_ITS | Encounter Summary ---
:1955 Author Organization [place] Address [address] [place] [address] Care Team Providers Name Role Phone Ian Kendrick MD Primary Care Provider Reason for Visit Reason Onset Date Comments Refill Request 03/01/2010 atrashtynt Encounter Details Date Type Department Care Team Description 03/01/[address] [facility] Ian Kendrick Refill Request [facility] MD Jeremiah (atrovent) [address] [place] [address] [place] [phone] [facility] [phone] [place] [address] (Wo rk) Social History Tobacco [...] you attend taoist or Patient refused 2020 taoist services? Do [...] CDT Refill done. Patient currently lives in [place]. Associated Diagnoses OTHER DYSPNEA AND RESPIRATORY ABNORMALITY - Primary ?? documented in this encounter Plan of Treatment Upcoming Encounters Date Type Specialty Care Team Description 05/20/2022 Lab Lab documented as of this encounter Visit Diagnoses Diagnosis Other dyspnea and respiratory abnormalit y - Primary documented in this encounter Care Teams Senior Principal Software Engineer Relationship Specialty Start Date End Date Ian Kendrick MD PCP - General 11/19/07 02/21/14 [place] [address] [place] [address] documented as of this encounter
--- OUTSIDE RECORDS SUMMARY | 2022-05-15 23:07 | XMS_ITS | Encounter Summary ---
:1955 Author Organization [place] Address [address] [place] [address] Care Team Providers Name Role Phone Ian Kendrick MD Primary Care Provider [phone] Reason for Visit Reason Onset Date Comments Refill Request 04/11/2011 Encounter Details Date Type Department Care Team Description 04/11/[address] [facility] Ian Kendrick, Refill Request Chhaya VILLASEÑOR [address] [place] [address] [facility] [phone] [facility] [address] (Wo rk) Social History Tobacco Use Types Packs/Day Years Used Date Smoking Tobacco: Former Cigarettes Comments: 2004 Alcohol Use Standard Drinks/Week Comments Yes 0 (1 standard drink = 0.6 oz pure alcoho l) 4 BEERS A WEEK Alcohol Habits Answer Date Recorded How often do you have a drink containing 4 or more times a w [place] pass 05/25/2021 alcohol? How many drinks containing [...] you attend synagogue or Patient refused 2020 episcopal services? Do [...] #480. Pt last seen 04/18/10. Living in [place] now and without insurance. So won't make an appointment until returns to [place] in the future. OKto refill? Esthela Merritt, RN documented in this encounter Plan of Treatment Upcoming Encounters Date Type Specialty Care Team Description 05/20/2022 Lab Lab documented as of this encounter Visit Diagnoses Diagnosis ULCERATIVE COLITIS NOS Ulcerative colitis, unspecified documented in this encounter Care Teams Turbine Engine Assembler Relationship Specialty Start Date End Date Ian Kendrick MD PCP - General 11/19/07 02/21/14 [place] [address] [place] [address] documented as of this encounter
--- OUTSIDE RECORDS SUMMARY | 2022-05-15 23:07 | XMS_ITS | Encounter Summary ---
:1955 Author Organization [place] Address [address] [place] [address] Care Team Providers Name Role Phone Ian Kendrick MD Primary Care Provider [phone] Reason for Visit Reason Onset Date Comments Refill Request 08/27/2011 Encounter Details Date Type Department Care Team Description 08/27/2011 Refill [facility] Ian Kendrick, Refill Request Chhaya VILLASEÑOR [address] [place] [address] 1625 [facility] [phone] [facility] N [address] (Wo rk) Social History Tobacco [...] follow up as needed. Esthela Merritt RN NER FIXER Telephone Encounter - Ian Kendrick MD - 08/27/2011 11:54 AM SPINNER FIXER prescription approved for furosemide. If no significant improvement on medication, return to clinic for further evaluation. NER FIXER Telephone Encounter - Esthela Merritt - 08/27/2011 [...] advise. Last filled 07/04/10 Esthela Merritt RN NER FIXER documented in this encounter Plan of Treatment Upcoming Encounters Date Type Specialty Care Team Description 05/20/2022 Lab Lab documented as of this encounter Visit Diagnoses Diagnosis Edema leg - Primary Edema documented in this encounter Care Teams Digital Tech Relationship Specialty Start Date End Date Ian Kendrick MD PCP - General 11/19/07 02/21/14 [facility] [address] [place] [address] documented as of this encounter
--- OUTSIDE RECORDS SUMMARY | 2022-05-15 23:07 | XMS_ITS | Encounter Summary ---
:1955 Author Organization [place] Address [address] [place] [address] Care Team Providers Name Role Phone Ian Kendrick MD Primary Care Provider [phone] Reason for Visit Reason Onset Date Comments Nurse Advice Line 08/13/2011 lab results Encounter Details Date Type Department Care Team Description 08/13/2011 Telephone [facility] Ian Kendrick Nurse Advice Line (lab Clinic Chhaya Daniels MD results) [address] [place], [place] 3850 [facility] [address] [facility] [phone] [place] [address] (Wo rk) Social History Tobacco [...] Patient agreed with plan. Mya Cooper RN HER AUTOMAT LONG GOODS Telephone Encounter - Ian Kendrick MD - 08/13/2011 1:55 PM WATCHER AUTOMAT LONG GOODS cholesterol elevated, other labs normal. I will provide recommendations on cholesterol and other labs when they are all back, likely within the week. Please inform patient. HER AUTOMAT LONG GOODS Telephone Encounter - Jessica Lee - 08/13/2011 1:51 PM CST Pt requesting 08/10/11 labs released to [facility], it looks like all are complete except testosterone. HER AUTOMAT LONG GOODS Telephone Encounter - Carolin Dawson - 08/13/2011 12:47 PM CST Name of caller: Virgil Relationship to pt: self Reason for call: Patient saw that some of his labs are back, would like to give patient his results now or wait until everything is back. Best phone number to reach pt at is: [phone] Ok to leave a message with medical info? No HER AUTOMAT LONG [employer] documented in this encounter Plan of Treatment Upcoming Encounters Date Type Specialty Care Team Description 05/20/2022 Lab Lab documented as of this encounter Visit Diagnoses Not on filedocumented in this encounter Care Teams Cheese Supervisor Relationship Specialty Start Date End Date Ian Kendrick MD PCP - General 11/19/07 02/21/14 [facility] [address] [place] [address] documented as of this encounter
--- OUTSIDE RECORDS SUMMARY | 2022-05-15 23:07 | XMS_ITS | Encounter Summary ---
:1955 Author Organization [place] Address [address] [place] [address] Care Team Providers Name Role Phone Ian Kendrick MD Primary Care Provider [phone] Reason for Visit Reason Onset Date Comments Patient Request 07/04/2010 Rx for water pills Encounter Details Date Type Department Care Team Description 07/04/2010 Telephone [facility] Ian Kendrick t Request ([facility] [place] MD for water pills) [address] [place], [place] 3850 [facility] [address] [facility] [phone] [place] [address] (Wo rk) Social History Tobacco [...] you attend sabianism or Patient refused 2020 confucianism services? Do [...] PM CST prescription approved and sent to [facility]. Please inform patient. LAY MAKER Telephone Encounter - Aubrie Dowd - 07/06/2010 12:32 PM CST Virgil was checking the status of his Rx? LAY MAKER Telephone Encounter - Shelly Davis - 07/04/2010 3:02 PM CST Does not meet standing order guidelines, no labs in past 6 months. Can you refill? Waiting to find pharmacy. Can I have a verbal ok to refill Furosemide. Shelly Davis RN BP Readings from Last 2 Encounters: 04/18/2010 112/84 12/12/2008 124/74 CR 0.88 01/10/2008 POTASSIUM 4.1 01/10/2008 LAY MAKER Telephone Encounter - Aubrie Dowd - 07/04/2010 12:53 PM CST Virgil states he needs an Rx for water pills. He states Shelly will know what its called. He's reachableat [phone] after 3:00pm. He's in [place]. [place] LAY MAKER documented in this encounter Plan of Treatment Upcoming Encounters Date Type Specialty Care Team Description 05/20/2022 Lab Lab documented as of this encounter Visit Diagnoses Diagnosis Edema leg - Primary Edema documented in this encounter Care Teams Restrictive Preparation Operator Relationship Specialty Start Date End Date Ian Kendrick MD PCP - General 11/19/07 02/21/14 [facility] [address] [place] [address] documented as of this encounter
--- OUTSIDE RECORDS SUMMARY | 2022-05-15 23:07 | XMS_ITS | Encounter Summary ---
:1955 Author Organization [place] Address [address] [place] [address] Care Team Providers Name Role Phone Ian Kendrick MD Primary Care Provider Reason for Visit Reason Onset Date Comments Medication Request 01/02/2010 Encounter Details Date Type Department Care Team Description 01/02/2010 Telephone [facility] Ian Kendrick [place] [address] [place] [address]33 [facility] [phone] [place] [address] (Wo rk) Social History Tobacco [...] you attend uatsdin or Patient refused 2020 mosque services? Do [...] 2:58 PM CDT Patient will have roommate oyster picker medications. Medications brought to net front end developer. Hazel Jj RN Telephone Encounter - Hazel Jj - 01/02/2010 11:10 AM CDT Message copied by HAZEL JJ on FriJan 02, 2010 11:10 AM ------ Message from: HAZEL CHRISTIANSEN Created: FriJan 02, 2010 9:54 AM Regarding: inhaler Contact: Virgil is calling today about his inhaler that was sent here?? He can be reached at [phone] documented in this encounter Plan of Treatment Upcoming Encounters Date Type Specialty Care Team Description 05/20/2022 Lab Lab documented as of this encounter Visit Diagnoses Not on filedocumented in this encounter Care Teams Needle Polisher Relationship Specialty Start Date End Date Ian Kendrick MD PCP - General 11/19/07 02/21/14 [facility] [address] [place] [address] documented as of this encounter
--- OUTSIDE RECORDS SUMMARY | 2022-05-15 23:07 | XMS_ITS | Encounter Summary ---
:1955 Author Organization [place] Address [address] [place] [address] Care Team Providers Name Role Phone Ian Kendrick MD Primary Care Provider [phone] Encounter Details Date Type Department Care Team Description 08/10/[address] [facility] Fat igue; [place] [facility] Erectile dysfunction; [address] [facility] Screening cholesterol level; [place] [address] Hyperlipidemia LDL goal <130 Social History Tobacco [...] you attend rastafarian or Patient refused 2020 sikhism services? Do [...] AM Fatigue Resul ts for this REFLEX MACHINE SPRING FORMER procedure are i n the results section. TESTOSTERONE TOTAL Routine 08/10/2011 9:33 AM Fatigue Results for this MACHINE SPRING FORMER Erectile procedure are i n dysfunction the results section. SEX HORMONE BINDING Routine 08/10/2011 9:33 AM Fatigue Results for this GLOBULIN MACHINE SPRING FORMER Erectile procedure are i n dysfunction the results section. LIPID REFLEX TO DIRECT Routine 08/10/2011 9:33 AM Screening Results for this LDL PANEL MACHINE SPRING FORMER cholesterol leve l procedure are in Hyperlipidemia LDL the resul ts goal <130 section. COMPREHENSIVE Routine 08/10/2011 9:33 AM Fatigue Results for this METABOLIC PANEL MACHINE SPRING FORMER Erectile procedure ar e in dysfunction the results section. CBC WITH PLATELETS Routine 08/10/2011 9:33 AM Fatigue Res ults for this MACHINE SPRING FORMER procedure are i n the results section. documented in this encounter Results Testosterone total (08/10/2011 9:33 AM MACHINE SPRING FORMER) Analysis Performed At Patho logist Time Signature Testosterone 296 240 - 950 [facility] Total ng/dL [facility] Specimen Anatomical Collection Method Collection Time Receive d Time (Source) Location / / Volume Laterality Blood specimen 08/10/2011 9:33 AM 012 9:35 (specimen) MACHINE SPRING FORMER AM MACHINE SPRING FORMER Ian Kendrick MD LAB - BLOOD ORDERABLES Performing Organization Address City/State/ZIP Code Phon e Number [facility] [address] [place], [place] [id number] [place] [address] LABS CBC with platelets (08/10/2011 9:33 AM MACHINE SPRING FORMER) P athologist Signature WBC 5.5 4.0 - 11.0 [facility] 10e9/L [facility] RBC Count 4.88 4.4 - 5.9 [facility] 10e12/L [facility] Hemoglobin 14.8 13.3 - [facility] 17.7 g/dL [facility] Hematocrit 44.7 40.0 - [facility] 53.0 % [facility] MCV 92 78 - 100 [facility] fl [facility] MCH 30.3 26.5 - [facility] 33.0 pg [facility] MCHC 33.1 31.5 - [facility] 36.5 g/dL [facility] RDW 13.3 10.0 - [facility] 15.0 % [facility] Platelet Count 164 150 - 450 [facility] 10e9/L [facility] Specimen Anatomical Collection Method Collection Time Receive d Time (Source) Location / / Volume Laterality Blood specimen 08/10/2011 9:33 AM 012 9:35 (specimen) MACHINE SPRING FORMER AM MACHINE SPRING FORMER Ian Kendrick MD LAB - BLOOD ORDERABLES Performing Organization Address City/State/ZIP Code Phon e Number [facility] [address] [place] [address] [facility] Comprehensive metabolic panel (08/10/2011 9:33 AM MACHINE SPRING FORMER) P athologist Signature Sodium 138 133 - 144 [place] mmol/L [facility] Potassium 4.6 3.4 - 5.3 [place] mmol/L CLINIC LAB Chloride 102 94 - 109 [place] mmol/L [facility] Carbon Dioxide 26 20 - 32 [place] mmol/L [facility] Anion Gap 10 6 - 17 [place] mmol/L [facility] Glucose 99 60 - 99 [place] mg/dL [facility] Urea Nitrogen 18 7 - 30 [place] mg/dL [facility] Creatinine 0.94 0.66 - [place] 1.25 mg/dL CLINIC LAB GFR Estimate 84 >60 [place] mL/min/1.7 [facility]INIC LAB m2 GFR Estimate If >90 >60 [place] Black mL/min/1.7 CLINIC LAB m2 Calcium 9.4 8.5 - 10.4 [place] mg/dL [facility] Bilirubin Total 1.3 0.2 - 1.3 [place] mg/dL CLINIC LAB Albumin 4.0 3.9 - 5.1 [place] g/dL CLINIC LAB Comment: Reference range changed on 02/22. Protein Total 7.7 6.8 - 8.8 g/dL [facility] Comment: As of 07, reference range reflects plasma specimen type. Alkaline Phosphatase 85 40 - 150 U/L [facility] ALT 33 0 - 70 U/L [place] [facility] LAB AST 31 0 - 45 U/L [place] LAB Specimen Anatomical Collection Method Collection Time Receive d Time (Source) Location / / Volume Laterality Blood specimen 08/10/2011 9:33 AM 012 9:35 (specimen) MACHINE SPRING FORMER AM MACHINE SPRING FORMER Ian Kendrick MD LAB - BLOOD ORDERABLES Performing Organization Address City/[facility]/ZIP Code Phon e Number [facility] [address] [place] [address] [facility] TSH with free T4 reflex (08/10/2011 9:33 AM MACHINE SPRING FORMER) athologist Signature TSH 2.86 0.4 - 5.0 [facility] mU/L [facility] Specimen Anatomical Collection Method Collection Time Receive d Time (Source) Location / / Volume Laterality Blood specimen 08/10/2011 9:33 AM 012 9:35 (specimen) MACHINE SPRING FORMER AM MACHINE SPRING FORMER Ian Kendrick MD LAB - BLOOD ORDERABLES Performing Organization Address City/[facility]/ZIP Code Phon e Number [facility] [address] [place] [address] [facility] (ABNORMAL) Lipid panel reflex to direct LDL (08/10/2011 9:33 AM MACHINE SPRING FORMER) athologist Signature Cholesterol 218 (H) 0 - 200 [facility] mg/dL CLINIC LAB Comment: LDL Cholesterol is the primary guide to therapy. The NCEP recommends further evaluation of: patients with cholesterol greater than 200 mg/dL if additional risk facto rs are present, cholesterol greater than 240 mg/dL, triglycerides greater than 1 50 mg/dL, or HDL less than 40 mg/dL. Triglycerides 157 (H) 0 - 150 mg/dL [facility] HDL Cholesterol 47 40 - 110 mg/dL [facility] LDL Cholesterol Calculated 140 (H) 0 - 129 mg/dL [facility] Comment: LDL Cholesterol is the primary guide to therapy: LDL-cholesterol goal in high risk patients is <100 mg/dL and in very high risk patients is <70 mg/dL. VLDL-Cholesterol 31 (H) 0 - 30 mg/dL [facility] Cholesterol/HDL Ratio 4.7 0.0 - 5.0 [facility] Specimen Anatomical Collection Method Collection Time Receive d Time (Source) Location / / Volume Laterality Blood specimen 08/10/2011 9:33 AM 012 9:35 (specimen) MACHINE SPRING FORMER AM MACHINE SPRING FORMER Ian Kendrick MD LAB - BLOOD ORDERABLES Performing Organization Address City/[facility]/ZIP Code Phon e Number [facility] [address] [place] [address] [facility] Sex hormone binding globulin (08/10/2011 9:33 AM MACHINE SPRING FORMER) athologist Signature Sex Hormone 21 [facility] LAB Comment: Reference range: 11 to 80 Unit: nmol/L (Note) Performed by [employer], [address] [place] [address] [email or web address], Montserrat Cordon MD, Lab. Director Specimen Anatomical Collection Method Collection Time Receive d Time (Source) Location / / Volume Laterality Blood specimen 08/10/2011 9:33 AM 012 9:35 (specimen) MACHINE SPRING FORMER AM MACHINE SPRING FORMER Ian Kendrick MD LAB - BLOOD ORDERABLES Performing Organization Address City/[facility]/ZIP Code Phon e Number [facility] [address] [place] [address] [facility] documented in this encounter Visit Diagnoses Diagnosis Fatigue Other malaise and fatigue Erectile dysfunction Impotence of organic origin Screening cholesterol level Screening for lipoid disorders Hyperlipidemia LDL goal <130 Other and unspecified hyperlipidemia documented in this encounter Care Teams Java Websphere Developer Relationship Specialty Start Date End Date Ian Kendrick MD PCP - General 11/19/07 02/21/14 [facility] [address] [place] [address] documented as of this encounter
--- OUTSIDE RECORDS SUMMARY | 2022-05-15 23:07 | XMS_ITS | Encounter Summary ---
:1955 Author Organization [place] Address [address] [place] [address] Care Team Providers Name Role Phone Ian Kendrick MD Primary Care Provider [phone] Reason for Visit Reason Comments Consult low testosterone. Encounter Details Date Type Department Care Team Description 08/09/2011 Office Visit [facility] Ian Kendricku e; Clinic Chhaya Daniels MD Erectile dysfunction; [address] [facility] Screening cholesterol level; [place], [place] CLINIC Hyperlipidemia LDL goal <130; [id number] [address] [facility] Joint pain; [phone] ULCERATIVE COLITIS NOS; [place], [place] Mild persi stent asthma; [address] Mild persistent asthma Social History Tobacco Use [...] Comments Blood Pressure 132/78 08/09/2011 2:09 PM CUSTOMER SERVICER Pulse 72 08/09/2011 2:09 PM CUSTOMER SERVICER Temperature 36.7 ??C (98.1 ??F) 08/09/2011 2:09 PM CUSTOMER SERVICER Respiratory Rate - - Oxygen Saturation 99% 08/09/2011 2:09 PM CUSTOMER SERVICER Inhaled Oxygen Concentration - - Weight 109.5 kg (241 lb 5 oz) 08/09/2011 2:09 PM CUSTOMER SERVICER Height 180.3 cm (5' 11) 08/09/2011 2:09 PM CUSTOMER SERVICER Body Mass Index 33.66 08/09/2011 2:09 PM CUSTOMER SERVICER documented in this encounter Progress Notes Ian [...] medical history, are all reviewed andupdated in [facility]. Current outpatient prescriptions Medication Sig ??? sildenafil [...] the follow up plan at that time. 606.12D Erectile dysfunction Comment: Plan: sildenafil (VIAGRA) 50 [...] (PROAIR HFA) 108 (90 BASE) MCG/ACT inhaler OMER SERVICER documented in this encounter Nursing Notes 08/09/2011 [...] Health maintenance- up to date. Marco Pak RIVER CAPTAIN \ documented in this encounter Plan of [...] asthma documented in this encounter Care Teams Casting Carrier Relationship Specialty Start Date End Date Ian Kendrick MD PCP - General 11/19/07 02/21/14 [place] [id number] [place] [address] documented as of this encounter
--- OUTSIDE RECORDS SUMMARY | 2022-05-15 23:07 | XMS_ITS | Encounter Summary ---
:1955 Author Organization [place] Address [address] [place] [address] Care Team Providers Name Role Phone Ian Kendrick MD Primary Care Provider [phone] Reason for Visit Reason Comments Shoulder left chronic due to brick laying, anterior aspect Encounter Details Date Type Department Care Team Description 09/13/2011 Office Visit Virgil Acevedo Subacromia l or subdeltoid bursitis (Primary Dx); Orthopedic DO Roel Pain in shoulder; [facility] ORTHOPEDIC Prepatell ar bursitis [facility] [address] [facility], [address] [facility] [address] [place] [address] [phone] Social History Tobacco Use Types Packs/Day Years Used Date Smoking Tobacco: Former Cigarettes Smokeless Tobacco: Never Comments: 2004 Alcohol Use Standard Drinks/Week Comments Yes 0 (1 standard drink = 0.6 oz pure alcoho l) 4 BEERS A WEEK Alcohol Habits Answer Date Recorded How often do you have a drink containing 4 or more times a w [place] 05/25/2021 alcohol? How many drinks containing [...] you attend hinduism or Patient refused 2020 moravian services? Do [...] shoulder pain. 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
--- OUTSIDE RECORDS SUMMARY | 2022-05-15 23:07 | XMS_ITS | Encounter Summary ---
:1955 Author Organization [place] Address [address] [place] [address] Care Team Providers Name Role Phone Ian Kendrick MD Primary Care Provider [phone] Reason for Visit Reason Onset Date Comments Refill Request 03/04/2011 Ipratropium (ATROVEN T HFA) 17 MCG/ACT inhaler Encounter Details Date Type Department Care Team Description 03/04/2011 Refill [facility] Ian Kendrick Refill Request Clinic Chhaya Daniels MD (Ipratropium (ATROVENT [address] [facility] HFA) 17 MCG/ACT [place], [place] [address] [facility] inhaler) [address] [facility] [phone] [place] [address] (Wo rk) Social History Tobacco [...] you attend religion or Patient refused 2020 orthodoxy services? Do [...] Inhalation. Last OV:04/18/2010 Last Refill:04/18/2010 Wendi Lindsay MUCKER COFFERDAM documented in this encounter Plan of Treatment Upcoming Encounters Date Type Specialty Care Team Description 05/20/2022 Lab Lab documented as of this encounter Visit Diagnoses Diagnosis Mild persistent asthma - Primary Unspecified asthma documented in this encounter Care Teams Sport Psychologist Relationship Specialty Start Date End Date Ian Kendrick MD PCP - General 11/19/07 02/21/14 [facility] [address] [place] [address] documented as of this encounter
--- OUTSIDE RECORDS SUMMARY | 2022-05-15 23:07 | XMS_ITS | Encounter Summary ---
:1955 Author Organization [place] Address [address] [place] [address] Care Team Providers Name Role Phone Ian Kendrick MD Primary Care Provider [phone] Reason for Visit Reason Comments Refill Request pending Cough with sore throat. x one week . Derm Problem check spots on lower right l eg. very itchy Encounter Details Date Type Department Care Team Description 04/30/2011 Office Visit [facility] Ian Kendrick Mild p ersistent asthma (Primary Dx); Clinic Chhaya Daniels MD Erectile dysfunction; [address] [facility] Lateral epicondylitis; [place], [place] CLINIC ULCERATIVE COLITIS NOS; [address] [address] [facility] Lichen planus [phone] [place] [address] (Wo rk) Social History Tobacco [...] you attend confucianism or Patient refused 2020 restoration services? Do [...] Comments Blood Pressure 122/80 04/30/2011 11:32 AM CREDIT OFFICER Pulse 70 04/30/2011 11:32 AM CREDIT OFFICER Temperature 37 ??C (98.6 ??F) 04/30/2011 11:32 AM CREDIT OFFICER Respiratory Rate - - Oxygen Saturation 98% 04/30/2011 11:32 AM CREDIT OFFICER Inhaled Oxygen Concentration - - Weight 105.4 kg (232 lb 6 oz) 04/30/2011 11:32 AM CREDIT OFFICER Height 180.3 cm (5' 11) 04/30/2011 11:32 AM CREDIT OFFICER Body Mass Index 32.41 04/30/2011 11:32 AM CREDIT OFFICER documented in this encounter Progress Notes Ian [...] all reviewed and updated in [facility]. 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 556.9 ULCERATIVE COLITIS NOS Comment: Plan: loperamide [...] worsen or fail to improve as anticipated. IT OFFICER documented in this encounter Nursing Notes 04/30/2011 [...] maintenance- AAP and act today. Marco Pak MUNICIPAL CLERK documented in this encounter Plan of Treatment Upcoming Encounters Date Type Specialty Care Team Description 05/20/2022 Lab Lab documented as of this encounter Procedures Procedure Name Priority Date/Time Associated Diagnosis Comme nts ASTHMA ACTION PLAN Routine 04/30/2011 11:28 AM CREDIT OFFICER Mild persis tent asthma documented in this encounter Visit Diagnoses Diagnosis Mild persistent asthma - Primary Unspecified asthma Erectile dysfunction Impotence of organic origin Lateral epicondylitis Lateral epicondylitis of elbow ULCERATIVE COLITIS NOS Ulcerative colitis, unspecified Lichen planus documented in this encounter Care Teams Power And Recovery Shift Engineer Relationship Specialty Start Date End Date Ian Kendrick MD PCP - General 11/19/07 02/21/14 [facility] [address] [place] [address] documented as of this encounter
--- OUTSIDE RECORDS SUMMARY | 2022-05-15 23:07 | XMS_ITS | Encounter Summary ---
:1955 Author Organization [place] Address [address] [place] [address] Care Team Providers Name Role Phone Ian Kendrick MD Primary Care Provider [phone] Encounter Details Date Type Department Care Team Description 03/01/2011 Medical Correspondence [facility] Ian Daniels, Occupational Health [address] Charlee VILLASEÑOR Exam Reports [facility] [phone] [place] [address] [place] [address] Social History Tobacco Use Types [...] you attend hoahaoism or Patient refused 2020 taoism services? Do [...] on filedocumented in this encounter Care Teams City Planner Relationship Specialty Start Date End Date Ian Kendrick MD PCP - General 11/19/07 02/21/14 [facility] [address] [place] [address] documented as of this encounter
--- OUTSIDE RECORDS SUMMARY | 2022-05-15 23:07 | XMS_ITS | Encounter Summary ---
:1955 Author Organization [place] Address [address] [place] [address] Care Team Providers Name Role Phone Ian Kendrick MD Primary Care Provider Reason for Visit Reason Onset Date Comments Other 07/28/2009 RX for compression s tockings Encounter Details Date Type Department Care Team Description 07/28/2009 Telephone [facility] Ian Kendrick Other (RX for Clinic What Cheer MD Jeremiah compression stockings) [address] [place], [place] [address] [facility] [address] [facility] [phone] [place] [address] (Wo rk) Social History [...] you attend bahai or Patient refused 2020 anabaptist services? Do [...] Rx faxed per request. Shelly Davis RN RETE LABORER Telephone Encounter - Ian Kendrick - 08/07/2009 5:41 PM CST Please fax hard copy of prescription to indicated pharmacy. RETE LABORER Telephone Encounter - Tarun Rodriguez - 07/28/2009 12:08 PM CST Please see phone message below. Tarun Rodriguez RN RETE LABORER Telephone Encounter - Tarun Rodriguez - 07/28/2009 12:07 PM CONCRETE LABORER Staff Message copied by TARUN RODRIGUEZ on FriJul 28, 2009 12:07 PM ------ Message from: JAKOB WORRELL Created: FriJul 28, 2009 11:56 AM Regarding: Rx request/Mireille Contact: Virgil needs an Rx for Medical Compression Stockings (thigh high) for his blood clots. His previous Rx was up to the calf. The brand was Sigvaris, size M4. Virgil is in [place]. Please send Rx [place] [facility] [place] [address]. Virgil can be reached at [phone]. DL 2-5@11:59am RETE LABORER documented in this encounter Plan of Treatment Upcoming Encounters Date Type Specialty Care Team Description 05/20/2022 Lab Lab documented as of this encounter Visit Diagnoses Diagnosis Lower extremity edema - Primary Edema documented in this encounter Care Teams Electronic Warfare Linguist Relationship Specialty Start Date End Date Ian Kendrick MD PCP - General 11/19/07 02/21/14 [place] [id number] [place] [address] documented as of this encounter
--- OUTSIDE RECORDS SUMMARY | 2022-05-15 23:07 | XMS_ITS | Encounter Summary ---
:1955 Author Organization [place] Address [address] [place] [address] Care Team Providers Name Role Phone Ian Kendrick MD Primary Care Provider [phone] Reason for Visit Reason Onset Date Comments Refill Request 09/25/2009 Encounter Details Date Type Department Care Team Description 09/25/2009 Refill [facility] Ian Kendrick, Refill Request Chhaya VILLASEÑOR [address] [place] [address] [facility] [phone] [facility] [place] [address] (Wo rk) Social History Tobacco [...] AM CDT Rx faxed to Larry in [place] at . Unable to leave message at [...] requesting Muscle relaxant and r Cell phone: [phone] documented in this encounter Plan of Treatment Upcoming Encounters Date Type Specialty Care Team Description 05/20/2022 Lab Lab documented as of this encounter Visit Diagnoses Diagnosis ULCERATIVE COLITIS NOS - Primary Ulcerative colitis, unspecified Back pain Backache, unspecified documented in this encounter Care Teams Manager Access Relationship Specialty Start Date End Date Ian Kendrick MD PCP - General 11/19/07 02/21/14 [facility] [address] [place] [address] documented as of this encounter
--- OUTSIDE RECORDS SUMMARY | 2022-05-15 23:07 | XMS_ITS | Encounter Summary ---
:1955 Author Organization [place] Address [address] [place] [address] Care Team Providers Name Role Phone Ian Kendrick MD Primary Care Provider [phone] Reason for Visit Reason Onset Date Comments Other 04/09/2011 act and asthma Encounter Details Date Type Department Care Team Description 04/09/2011 Telephone [facility] Ian Kendrick Other (act and asthma) [place] [address] [place] [address] [place] [address] [facility] [phone] [place] [address] (Wo rk) Social History Tobacco [...] you attend mandaeism or Patient refused 2020 scientologist services? Do [...] PM CDT Pt calling he is in [place] for work, at this time he is without insurance and has not been able to come in for appointments. Work in [place] is slow so pt is in [place] for work. Did act over the phone today score 25 no ED or hospitalizations in the last year. Pt is using the Qvar 1-2 puffs daily and Atrovent 1 puff daily I never really need the albuterol. Pt will come in for visit when he returns to [place] but is concerned about cost as the inhalers cost about 200 bucks a month Pt has tried [facility] [employer] [facility] I make too much money for [...] asthma documented in this encounter Care Teams Salvager Helper Relationship Specialty Start Date End Date Ian Kendrick MD PCP - General 11/19/07 02/21/14 [facility] [address] [place] [address] documented as of this encounter
--- OUTSIDE RECORDS SUMMARY | 2022-05-15 23:07 | XMS_ITS | Encounter Summary ---
:1955 Author Organization [place] Address [address] [place] [address] Care Team Providers Name Role Phone Ian Kendrick MD Primary Care Provider [phone] Reason for Visit Reason Onset Date Comments Refill Request 04/19/2011 immodium Encounter Details Date Type Department Care Team Description 04/19/2011 Refill [facility] Ian Kendrick Refill Request [facility] MD Jeremiah (immodium) [address] [place] [address] [place] [address] [facility] [phone] [place] [address] (Wo rk) Social History Tobacco [...] you attend pentecostalism or Patient refused 2020 yazdanism services? Do [...] imodium refill 04-18-11 from [facility] in [place]. Medication was last filled 04-11-11 to [facility] in [place]. Per 04-11-11 phone encounter medication was sentto [facility] pharmacy, [facility] be [facility]. Called [facility], states med never picked-up, cancelled via phone. Called [facility], ok'd refill via phone. Mya Cooper RN documented in this encounter Plan of Treatment Upcoming Encounters Date Type Specialty Care Team Description 05/20/2022 Lab Lab documented as of this encounter Visit Diagnoses Diagnosis ULCERATIVE COLITIS NOS Ulcerative colitis, unspecified documented in this encounter Care Teams Spanish Interpreter Relationship Specialty Start Date End Date Ian Kendrick MD PCP - General 11/19/07 02/21/14 [facility] [address] [place] [address] documented as of this encounter
--- OUTSIDE RECORDS SUMMARY | 2022-05-15 23:07 | XMS_ITS | Encounter Summary ---
:1955 Author Organization [place] Address [address] [place] [address] Care Team Providers Name Role Phone Ian Kendrick MD Primary Care Provider [phone] Reason for Visit Reason Onset Date Comments Refill Request 11/21/2010 Ambien Encounter Details Date Type Department Care Team Description 11/21/2010 Refill [facility] Ian Kendrick Refill Request (Ambien) [facility] MD Jeremiah [address] [place], [place] [address] [facility] [address] [facility] [phone] [place] [address] (Wo rk) Social History Tobacco [...] you attend baptism or Patient refused 2020 worship services? Do [...] 8:43 AM CDT rx approved faxed to [facility]. Placed in black folder. Irma Dunaway Metal Stamper Telephone Encounter - Chacha Laboy - 11/21/2010 [...] documented in this encounter Care Teams Die Forger Relationship Specialty Start Date End Date Ian Kendrick MD PCP - General 11/19/07 02/21/14 [facility]3] [address] [place] [address] documented as of this encounter
--- OUTSIDE RECORDS SUMMARY | 2022-05-15 23:07 | XMS_ITS | Encounter Summary ---
:1955 Author Organization [place] Address [address] [place] [address] Care Team Providers Name Role Phone Ian Kendrick MD Primary Care Provider [phone] Reason for Visit Reason Onset Date Comments Patient Request 05/21/2010 zolpidem (AMBIEN CR) 12.5 MG CR tablet and hydrocodone-acetamin ophen (VICODIN) 5-500 MG per tablet Encounter Details Date Type Department Care Team Description 05/21/2010 Telephone [facility] Ian Kendrick Paticarlo t Request Clinic Gamercosandee Daniels MD (zolpidem (AMBIEN CR) [address] [facility] 12.5 MG CR tablet [place], [place] 38[address] [facility] hydrocod one-acetaminop [address] [address] hen (VICODIN) 5-500 MG [phone] [place], [place] per tablet ) [address] (Wo rk) Social History Tobacco Use Types Packs/Day Years Used Date Smoking Tobacco: Former Cigarettes Comments: 2004 Alcohol Use Standard Drinks/Week Comments Yes 0 (1 standard drink = 0.6 oz pure alcoho l) 4 BEERS A WEEK Alcohol Habits Answer Date Recorded How often do you have a drink containing 4 or more times a w sitka 05/25/2021 alcohol? How many drinks containing alcohol [...] you attend sikhism or Patient refused 2020 congregational services? Do [...] 04/18. This was not a refill encounter. ER SUPERVISOR Telephone Encounter - Esthela Genao - 05/21/2010 11:35 AM CST Can we do this? Last OV 04-18-10 Esthela Genao RN ER SUPERVISOR Telephone Encounter - Irma Dunaway - 05/21/2010 10:27 AM CST [facility] in [place] called and needs verbal ok for refill of zolpidem (AMBIEN CR) 12.5 MG CR tablet and hydrocodone-acetaminophen (VICODIN) 5-500 MG per tablet. Please call and message daiana looney at [phone]. ER SUPERVISOR documented in this encounter Plan of Treatment Upcoming Encounters Date Type Specialty Care Team Description 05/20/2022 Lab Lab documented as of this encounter Visit Diagnoses Diagnosis Insomnia Insomnia, unspecified Lateral epicondylitis Lateral epicondylitis of elbow documented in this encounter Care Teams Visual Coordinator Relationship Specialty Start Date End Date Ian Kendrick MD PCP - General 11/19/07 02/21/14 [facility] [address] [place] [address] documented as of this encounter
--- OUTSIDE RECORDS SUMMARY | 2022-05-15 23:08 | XMS_ITS | Encounter Summary ---
:1955 Author Organization [place] Address [address] [place] [address] Care Team Providers Name Role Phone Ian Kendrick MD Primary Care Provider [phone] Reason for Visit Reason Comments Flu Shot Encounter Details Date Type Department Care Team Description 03/15/2009 [facility] Flu Shot Visit [address] [address] Social History Tobacco Use [...] attend roman catholic or Patient refused 2020 scientology services? Do [...] to contact lens solution/thimerosol? No History of Guillain-Carlisle syndrome? No Currently have moderate or severe [...] Primary documented in this encounter Care Teams Karate Instructor Relationship Specialty Start Date End Date Ian Kendrick MD PCP - General 11/19/07 02/21/14 [facility] [address] [place] [address] documented as of this encounter
--- OUTSIDE RECORDS SUMMARY | 2022-05-15 23:08 | XMS_ITS | Encounter Summary ---
:1955 Author Organization [place] Address [address] [place] [address] Care Team Providers Name Role Phone Ian Kendrick MD Primary Care Provider [phone] Reason for Visit Reason Onset Date Comments Refill Request 01/09/2009 Imodium Encounter Details Date Type Department Care Team Description 01/09/2009 Refill [facility] Ian Kendrick Refill Request [facility] [place] [facility] MD Jeremiah (Imodium) [address] [place] [address] [place] [address] [facility] [phone] [place] [address] (Wo rk) Social History Tobacco [...] unspecified documented in this encounter Care Teams Tax Expert Relationship Specialty Start Date End Date Ian Kendrick MD PCP - General 11/19/07 02/21/14 [facility] [address] [place] [address] documented as of this encounter
--- OUTSIDE RECORDS SUMMARY | 2022-05-15 23:08 | XMS_ITS | Encounter Summary ---
:1955 Author Organization [place] Address [address] [place] [address] Care Team Providers Name Role Phone Ian Kendrick MD Primary Care Provider [phone] Reason for Visit Reason Onset Date Comments Patient Request 02/08/2009 questions regarding Encounter Details Date Type Department Care Team Description 02/08/2009 Telephone [facility] Ian Kendrick Paticarlo t Request [facility] MD Jeremiah (questions regarding ) [address] [place], [place] 3850 [facility] [address] [facility] [phone] [place] [address] (Wo rk) Social History Tobacco [...] you attend orthodoxy or Patient refused 2020 moravian services? Do [...] not state why. Please call patient at [phone]. documented in this encounter Plan of Treatment Upcoming Encounters Date Type Specialty Care Team Description 05/20/2022 Lab Lab documented as of this encounter Visit Diagnoses Not on filedocumented in this encounter Care Teams Doctor Of Optometry Relationship Specialty Start Date End Date Ian Kendrick MD PCP - General 11/19/07 02/21/14 [facility] [address] [place] [address] documented as of this encounter
--- OUTSIDE RECORDS SUMMARY | 2022-05-15 23:08 | XMS_ITS | Encounter Summary ---
:1955 Author Organization [place] Address [address] [place] [address] Care Team Providers Name Role Phone Ian Kendrick MD Primary Care Provider [phone] Reason for Visit Reason Onset Date Comments Refill Request 12/20/2008 Encounter Details Date Type Department Care Team Description 12/15/2008 Refill [facility] Destiny Soto MD Refill Request [address] [address] [place], [place] [address] (Wo rk) Social History Tobacco Use Types Packs/Day Years Used Date Smoking Tobacco: Former Cigarettes Comments: 2004 Alcohol Use Standard Drinks/Week Comments Yes 0 (1 standard drink = 0.6 oz pure alcoho l) 4 BEERS A WEEK Alcohol Habits Answer Date Recorded How often do you have a drink containing 4 or more times a w caddo 05/25/2021 alcohol? How many drinks containing alcohol [...] loperamide, nurse refilled script and send to [facility], pt would like to change to taget, changed script to phaarmacy Paulina Soto MD documented in this encounter Plan of Treatment Upcoming Encounters Date Type Specialty Care Team Description 05/20/2022 Lab Lab documented as of this encounter Visit Diagnoses Diagnosis UC (ulcerative colitis) (H) - Primary Ulcerative colitis, unspecified documented in this encounter Care Teams Housemaid Relationship Specialty Start Date End Date Ian Kendrick MD PCP - General 11/19/07 02/21/14 [facility] [address] [place] [address] documented as of this encounter
--- OUTSIDE RECORDS SUMMARY | 2022-05-15 23:08 | XMS_ITS | Encounter Summary ---
:1955 Author Organization [place] Address [address] [place] [address] Care Team Providers Name Role Phone Ian Kendrick MD Primary Care Provider [phone] Reason for Visit Reason Comments Anticoagulation Encounter Details Date Type Department Care Team Description 12/06/2008 [facility] Anticoagulation Visit [address] [address] Social History Tobacco Use [...] you attend evangelical or Patient refused 2020 buddhism services? Do [...] in this encounter Visit Diagnoses Diagnosis terminal gauger (current) use of anticoagulant s Long-term (current) use of anticoagulant s documented in this encounter Care Teams Chair Post Machine Operator Relationship Specialty Start Date End Date Ian Kendrick MD PCP - General 11/19/07 02/21/14 [facility] [address] [place] [address] documented as of this encounter
--- OUTSIDE RECORDS SUMMARY | 2022-05-15 23:08 | XMS_ITS | Encounter Summary ---
:1955 Author Organization [place] Address [address] [place] [address] Care Team Providers Name Role Phone Ian Kendrick MD Primary Care Provider [phone] Reason for Visit Reason Onset Date Comments Patient Request 01/04/2009 Update Encounter Details Date Type Department Care Team Description 01/04/2009 Telephone [facility] Ian Kendrick Paticarlo t Request [facility] MD Jeremiah (Update) [address] [place] [address] [place] [phone] [facility] [phone] [place] [address] (Wo rk) Social History Tobacco [...] 05, 2009 8:15 AM ------ Message from: JAOKB WORRELL Created: FriJan 04, 2009 2:44 PM Regarding: Phone Message/Hazel Contact: Virgil needs to stop is Coumadin. He's having a procedure tomorrow. Please call him at [phone]. DL 7-15@2:45pm Telephone Encounter - Hazel Jj - 01/04/2009 3:19 PM CDT Staff Message copied by HAZEL JJ on FriJan 04, 2009 3:19 PM ------ Message from: JAKOB WORRELL Created: FriJan 04, 2009 2:44 PM Regarding: Phone Message/Hazel Contact: Virgil needs to stop is Coumadin. He's having a procedure tomorrow. Please call him at [phone]. DL 7-15@2:45pm documented in this encounter Plan of Treatment Upcoming Encounters Date Type Specialty Care Team Description 05/20/2022 Lab Lab documented as of this encounter Visit Diagnoses Not on filedocumented in this encounter Care Teams Author'S Agent Relationship Specialty Start Date End Date Ian Kendrick MD PCP - General 11/19/07 02/21/14 [facility] [address] [place] [address] documented as of this encounter
--- OUTSIDE RECORDS SUMMARY | 2022-05-15 23:08 | XMS_ITS | Encounter Summary ---
:1955 Author Organization [employer] Address [address] [place] [address] Care Team Providers Name Role Phone Ian Kendrick MD Primary Care Provider [phone] Reason for Visit Reason Comments Ear Problem right ear flush Encounter Details Date Type Department Care Team Description 01/05/2009 Allied Health/Nurse [facility] Ear Problem (right ear Visit Clinic [facility]) [address] [place] [address] Social History Tobacco Use Types Packs/Day Years Used Date Smoking Tobacco: Former Cigarettes Comments: 2004 Alcohol Use Standard Drinks/Week Comments Yes 0 (1 standard drink = 0.6 oz pure alcoho l) 4 BEERS A WEEK Alcohol Habits Answer Date Recorded How often do you have a drink containing 4 or more times a w ak chin 05/25/2021 alcohol? How many drinks containing alcohol [...] you attend muslim or Patient refused 2020 yazdanism services? Do [...] unspecified documented in this encounter Care Teams Technology Adoption Manager Relationship Specialty Start Date End Date Ian Kendrick MD PCP - General 11/19/07 02/21/14 [facility] [address] [place] [address] documented as of this encounter
--- OUTSIDE RECORDS SUMMARY | 2022-05-15 23:08 | XMS_ITS | Encounter Summary ---
:1955 Author Organization [place] Address [address] [place] [address] Care Team Providers Name Role Phone Ian Kendrick MD Primary Care Provider [phone] Reason for Visit Reason Onset Date Comments Patient Request 03/16/2009 Questions about qvar Encounter Details Date Type Department Care Team Description 03/16/2009 Telephone [facility] Ian Kendrick Paticarlo t [facility] (Questions about qvar) [address] [place], [place] 3850 [facility] [address] [facility] [phone] [place] [address] (Wo rk) Social History Tobacco [...] you attend religious or Patient refused 2020 bahai services? Do [...] with number to get Qvar. Please call [phone]. DL 03-21@2:36pm Telephone Encounter - Hazel Jj [...] is Qvar ordered. Please call him at [phone]. DL 03-16@10:34am documented in this encounter Plan of Treatment Upcoming Encounters Date Type Specialty Care Team Description 05/20/2022 Lab Lab documented as of this encounter Visit Diagnoses Not on filedocumented in this encounter Care Teams [place] Actor Relationship Specialty Start Date End Date Ian Kendrick MD PCP - General 11/19/07 02/21/14 [facility] [address] [place] [address] documented as of this encounter
--- OUTSIDE RECORDS SUMMARY | 2022-05-15 23:08 | XMS_ITS | Encounter Summary ---
:1955 Author Organization [place] Address [address] [place] [address] Care Team Providers Name Role Phone Ian Kendrick MD Primary Care Provider [phone] Reason for Visit Reason Onset Date Comments Form Request 04/14/2009 Teva Program Encounter Details Date Type Department Care Team Description 04/14/2009 Telephone [facility] Ian Kendrick Form R equest ([facility] [place] MD Jeremiah Program) [address] [place] [address] [place] [address] [facility] [phone] [place] [address] (Wo rk) Social History Tobacco [...] you attend faith or Patient refused 2020 bahai services? Do [...] on filedocumented in this encounter Care Teams Child Nutrition Assistant Relationship Specialty Start Date End Date Ian Kendrick MD PCP - General 11/19/07 02/21/14 [facility] [address] [place] [address] documented as of this encounter
--- OUTSIDE RECORDS SUMMARY | 2022-05-15 23:08 | XMS_ITS | Encounter Summary ---
:1955 Author Organization [place] Address [address] [place] [address] Care Team Providers Name Role Phone Ian Kendrick MD Primary Care Provider [phone] Reason for Visit Reason Onset Date Comments Orders 04/20/2009 Teva Assistance Encounter Details Date Type Department Care Team Description 04/20/2009 Telephone [facility] Ian Kendrick Orders (Teva Clinic [place] MD Jeremiah Assistance) [address] [place] [address] [place] [address] [facility] [phone] [place] [address] (Wo rk) Social History Tobacco [...] you attend tenriism or Patient refused 2020 gnosticism services? Do [...] 04/24/2009 10:04 AM CST Form faxed to [facility] at . Form sent to abstract. Shelly Davis RN SPECIALIST Telephone Encounter - Ian Kendrick - 04/21/2009 2:57 PM CDT Form completed. See nurse's inbox. Telephone Encounter - Shelly Davis - 04/20/2009 8:38 AM CDT Received fax for [employer] [facility] for Qvar. Form Started. Please review and sign. Placed on Dr. Kendrick's desk. Shelly Davis RN documented in this encounter Plan of Treatment Upcoming Encounters Date Type Specialty Care Team Description 05/20/2022 Lab Lab documented as of this encounter Visit Diagnoses Not on filedocumented in this encounter Care Teams Telephone Switchboard Operator Relationship Specialty Start Date End Date Ian Kendrick MD PCP - General 11/19/07 02/21/[address] [address] documented as of this encounter
--- OUTSIDE RECORDS SUMMARY | 2022-05-15 23:08 | XMS_ITS | Encounter Summary ---
:1955 Author Organization [place] Address [address] [place] [address] Care Team Providers Name Role Phone Ian Kendrick MD Primary Care Provider [phone] Reason for Visit Reason Comments Anticoagulation Encounter Details Date Type Department Care Team Description 12/20/2008 Allied Health/Nurse [facility] Anticoagulation Visit [address] [address] Social History Tobacco [...] you attend nondenominational or Patient refused 2020 church services? Do [...] documented in this encounter Visit Diagnoses Diagnosis nursing home (current) use of anticoagulant s - Primary Long-term (current) use of anticoagulant s documented in this encounter Care Teams Club Room Attendant Relationship Specialty Start Date End Date Ian Kendrick MD PCP - General 11/19/07 02/21/14 [facility] [address] [place] [address] documented as of this encounter
--- OUTSIDE RECORDS SUMMARY | 2022-05-15 23:08 | XMS_ITS | Encounter Summary ---
:1955 Author Organization [place] Address [address] [place] [address] Care Team Providers Name Role Phone Ian Kendrick MD Primary Care Provider [phone] Encounter Details Date Type Department Care Team Description 06/02/2009 Results Only [facility] [place] [facility] MD Hospital Results PA ONCOLOGY HEM ATOLOGY [address] [place], [place] [address] (Wo rk) Social History [...] you attend orthodoxy or Patient refused 2020 tenriism services? Do [...] 10:13 AM Results for this EXTREM VENOUS,UNI ATTENDANCE SECRETARY procedure are in OR LTD the results section. documented in this encounter Results RT DUPLEX EXTREM VENOUS,UNI OR LTD (06/02/2009 10:13 AM ATTENDANCE SECRETARY) Anatomical Region Laterality Modality Other Specimen (Source) Anatomical Collection Method Collection Time Re ceived Time Location / / Volume Laterality 06/02/2009 10:13 AM ATTENDANCE SECRETARY Impressions 06/02/2009 2:30 PM ATTENDANCE SECRETARY ULTRASOUND VENOUS LOWER EXTREMITY UNILAT ERAL RIGHT [...] on filedocumented in this encounter Care Teams Batch Tank Controller Relationship Specialty Start Date End Date Ian Kendrick MD PCP - General 11/19/07 02/21/14 [facility] [address] [place] [address] documented as of this encounter
--- OUTSIDE RECORDS SUMMARY | 2022-05-15 23:08 | XMS_ITS | Encounter Summary ---
:1955 Author Organization [place] Address [address] [place] [address] Care Team Providers Name Role Phone Ian Kendrick MD Primary Care Provider [phone] Reason for Visit Reason Onset Date Comments Results 06/14/2009 Encounter Details Date Type Department Care Team Description 06/14/2009 Telephone [facility] Ian Kendrick, Results Chhaya [place]ILL[place] [address] [place] [address] [address] [facility] [phone] [facility] N [address] (Wo rk) Social [...] results in the computer. Hazel Jj RN R OVERHAULER Telephone Encounter - Hazel Jj - 06/14/2009 4:38 PM MOTOR OVERHAULER Staff Message copied by HAZEL JJ on FriJun 14, 2009 4:38 PM ------ Message from: ITZEL MUNOZ Created: FriJun 14, 2009 3:48 PM Regarding: ultrasound results Contact: thierno Bravo would like a call back about lab results. Svitlana Camarillo R OVERHAULER documented in this encounter Plan of Treatment Upcoming Encounters Date Type Specialty Care Team Description 05/20/2022 Lab Lab documented as of this encounter Visit Diagnoses Not on filedocumented in this encounter Care Teams Sizing Machine Operator Relationship Specialty Start Date End Date Ian Kendrick MD PCP - General 11/19/07 02/21/14 [facility] [address] [place] [address] documented as of this encounter
--- OUTSIDE RECORDS SUMMARY | 2022-05-15 23:08 | XMS_ITS | Encounter Summary ---
:1955 Author Organization [place] Address [address] [place] [address] Care Team Providers Name Role Phone Ian Kendrick MD Primary Care Provider [phone] Reason for Visit Reason Comments Anticoagulation Encounter Details Date Type Department Care Team Description 11/17/2008 Allied Health/Nurse Health [facility] Anticoagulation Visit [address] [address] Social History Tobacco Use [...] you attend orthodox or Patient refused 2020 mandaeism services? [...] documented in this encounter Visit Diagnoses Diagnosis skilled nursing (current) use of anticoagulant s Long-term (current) use of anticoagulant s documented in this encounter Care Teams Auto Hauler Relationship Specialty Start Date End Date Ian Kendrick MD PCP - General 11/19/07 02/21/14 [facility] [address] [place] [address] documented as of this encounter
--- OUTSIDE RECORDS SUMMARY | 2022-05-15 23:08 | XMS_ITS | Encounter Summary ---
:1955 Author Organization [place] Address [address] [place] [address] Care Team Providers Name Role Phone Ian Kendrick MD Primary Care Provider [phone] Reason for Visit Reason Comments Medication Request medication check, quit/stop coumadin for surgery, maybe an US for blood clots Encounter Details Date Type Department Care Team Description 12/12/2008 Office Visit [facility] Ian Kendrick Thromb ophilia (H); [facility] [place] MD Jeremiah DVT (Deep Venous Thrombosis) (H); [address] [facility] ULCERATIVE COLITIS [facility] [address] 5974 [facility] [phone] [place] [address] Social History Tobacco Use Types Packs/Day Years [...] you attend quaker or Patient refused 2020 shinto services? Do [...] history, are all reviewed and updated in [facility]. Current outpatient prescriptions prior to encounter: [...] greater than 50% of 25 minutes of [id number]-vo-okkl time counseling patient and/or coordinating care regarding [...] completed using cuff size: large Kannan Daniel PROGRAM CLINICIAN documented in this encounter Plan of Treatment Upcoming Encounters Date Type Specialty Care Team Description 05/20/2022 Lab Lab documented as of this encounter Visit Diagnoses Diagnosis Thrombophilia (H) Other and unspecified coagulation defect s DVT (deep venous thrombosis) (H) Acute venous embolism and thrombosis of unspecified deep vessels of lower extremity ULCERATIVE COLITIS NOS Ulcerative colitis, unspecified documented in this encounter Care Teams Twister Doffer Relationship Specialty Start Date End Date Ian Kendrick MD PCP - General 11/19/07 02/21/14 [facility] [address] [place] [address] documented as of this encounter
--- OUTSIDE RECORDS SUMMARY | 2022-05-15 23:08 | XMS_ITS | Encounter Summary ---
:1955 Author Organization [place] Address [address] [place] [address] Care Team Providers Name Role Phone Ian Kendrick MD Primary Care Provider [phone] Reason for Referral Office Workup No CT/MRI - Closed Specialty Diagnoses / Procedures Referred By Contact Refer red To Contact Diagnoses Tinnitus Ian Kendrick, [facility] [place] [address] [facility] [address] [place] [address] [place], [place] [address] Referral ID Status Reason Start Date Expiration Date Visits Requ ested Visits Authorized [id number] Closed 02/24/2009 06/22/2011 1 1 Reason for Visit Reason Onset Date Comments Referral 02/24/2009 ENT for ringing in t he Ear. Encounter Details Date Type Department Care Team Description 02/24/2009 Telephone [facility] Ian Kendrick Referr al (ENT for Clinic [place] MD Jeremiah ringing in the Ear.) [address] [place], [place] [address] [facility] [address] [address] [phone] [place] [address] (Wo rk) Social History Tobacco [...] you attend faith or Patient refused 2020 caodaism services? Do [...] PM CDT Referral faxed to pt at [phone] per pt request. Marco Pak CMA Telephone [...] for patient. Patient can be reach at [phone]. documented in this encounter Plan of Treatment [...] tinnitus documented in this encounter Care Teams Musical Instruments Assembler Relationship Specialty Start Date End Date Ian Kendrick MD PCP - General 11/19/07 02/21/14 [facility] [address] [place] [address] documented as of this encounter
--- OUTSIDE RECORDS SUMMARY | 2022-05-15 23:08 | XMS_ITS | Encounter Summary ---
:1955 Author Organization [place] Address [address] [place] [address] Care Team Providers Name Role Phone Ian Kendrick MD Primary Care Provider [phone] Reason for Visit Reason Onset Date Comments Refill Request 12/07/2008 QVAR Encounter Details Date Type Department Care Team Description 12/07/2008 Refill [facility] Ian Kendrick Refill Request (QVAR) [place] [address] [place] [address] [facility] [phone] [place] [address] (Wo rk) Social History Tobacco [...] you attend congregational or Patient refused 2020 samaritan services? Do [...] New number was given. Phone number is [phone]. Per Tevapatient will be sent his Qvar. Hazel Jj RN Telephone Encounter - Hazel Jj - 12/13/2008 12:10 PM CDT Staff Message copied by HAZEL JJ on FriDec 13, 2008 12:10 PM ------ Message from: JAKOB WORRELL Created: FriDec 06, 2008 8:23 AM Regarding: rx request/[facility] Contact: Virgil needs a refill for Qvar 80mg, the Rx # is [id number]. The phone to call is [phone] thru the Teva Program. He's almost out of the med. Virgil can be reached at [phone]. DL 6-16@8:29am Telephone Encounter - Hazel Jj - 12/07/2008 9:53 AM CDT Staff Message copied by HAZEL JJ on FriDec 07, 2008 9:53 AM ------ Message from: JAKOB WORRELL Created: FriDec 06, 2008 8:23 AM Regarding: rx request/[facility] Contact: Virgil needs a refill for Qvar 80mg, the Rx # is [id number]. The phone to call is [phone] thru the Teva Program. He's almost out of the med. Virgil can be reached at [phone]. DL 6-16@8:29am documented in this encounter Plan of Treatment Upcoming Encounters Date Type Specialty Care Team Description 05/20/2022 Lab Lab documented as of this encounter Visit Diagnoses Not on filedocumented in this encounter Care Teams Analysis Intern Relationship Specialty Start Date End Date Ian Kendrick MD PCP - General 11/19/07 02/21/14 [facility] [address] [place] [address] documented as of this encounter
--- OUTSIDE RECORDS SUMMARY | 2022-05-15 23:08 | XMS_ITS | Encounter Summary ---
:1955 Author Organization [place] Address [address] [place] [address] Care Team Providers Name Role Phone Ian Kendrick MD Primary Care Provider [phone] Reason for Visit Reason Onset Date Comments Forms 03/28/2009 Teva Assistance Prog bon Encounter Details Date Type Department Care Team Description 03/28/2009 Telephone [facility] Ian Kendrick Forms (Teva Assistance Clinic [place] MD Jeremiah Program) [address] [place] [address] [place] [address] [facility] [phone] [place] [address] (Wo rk) Social History Tobacco [...] AM CDT Form faxed to Dain at [phone] and sent to abstract. Julianna Jj RN Telephone Encounter - Paulina Soto - 03/29/2009 8:44 AM CDT Forms signed and placed on julianna's box Paulina Soto MD Telephone Encounter - Julianna Jj - 03/28/2009 4:11 PM CDT Received fax from patient for [employer] Assistance program for Enrollment application. Form filled [...] off on Friday. Please call patient at [phone]. documented in this encounter Plan of Treatment Upcoming Encounters Date Type Specialty Care Team Description 05/20/2022 Lab Lab documented as of this encounter Visit Diagnoses Not on filedocumented in this encounter Care Teams Shearing Shed Worker Relationship Specialty Start Date End Date Ian Kendrick MD PCP - General 11/19/07 02/21/14 [facility] [address] [place] [address] documented as of this encounter
--- OUTSIDE RECORDS SUMMARY | 2022-05-15 23:08 | XMS_ITS | Encounter Summary ---
:1955 Author Organization [place] Address [address] [place] [address] Care Team Providers Name Role Phone Ian Kendrick MD Primary Care Provider [phone] Encounter Details Date Type Department Care Team Description 01/05/2009 Results Only [facility] Results [facility]OLOGY [address] [address] [place], [place] [address] (Wo rk) Social History [...] you attend druze or Patient refused 2020 voodoo services? Do [...] on filedocumented in this encounter Care Teams Dyed Raw Stock Blower Feeder Relationship Specialty Start Date End Date Ian Kendrick MD PCP - General 11/19/07 02/21/14 [facility] [address] [place] [address] documented as of this encounter
--- OUTSIDE RECORDS SUMMARY | 2022-05-15 23:08 | XMS_ITS | Encounter Summary ---
:1955 Author Organization [place] Address [address] [place] [address] Care Team Providers Name Role Phone Ian Kendrick MD Primary Care Provider [phone] Reason for Visit Reason Onset Date Comments Refill Request 12/14/2008 immodium Encounter Details Date Type Department Care Team Description 12/14/2008 Refill [facility] Ian Kendrick Refill Request [facility] MD Jeremiah (immodium) [address] [place] [address] [place] [address] [facility] [phone] [place] [address] (Wo rk) Social History Tobacco [...] you attend christianity or Patient refused 2020 synagogue services? Do [...] informed rx ready for pickup. Marco Pak CONSTRUCTION OPERATIONS MANAGER Telephone Encounter - Ian Kendrick - 12/14/2008 [...] for julianna He can be reached at [phone] documented in this encounter Plan of Treatment Upcoming Encounters Date Type Specialty Care Team Description 05/20/2022 Lab Lab documented as of this encounter Visit Diagnoses Diagnosis ULCERATIVE COLITIS NOS - Primary Ulcerative colitis, unspecified documented in this encounter Care Teams Nuclear Equipment Test Engineer Relationship Specialty Start Date End Date Ian Kendrick MD PCP - General 11/19/07 02/21/14 [facility] [address] [place] [address] documented as of this encounter
--- OUTSIDE RECORDS SUMMARY | 2022-05-15 23:08 | XMS_ITS | Encounter Summary ---
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
--- OUTSIDE RECORDS SUMMARY | 2022-05-15 23:08 | XMS_ITS | Encounter Summary ---
:1955 Author Organization [place] Address [address] [place] [address] Care Team Providers Name Role Phone Ian Kendrick MD Primary Care Provider [phone] Encounter Details Date Type Department Care Team Description 12/10/2008 Telephone [facility] [place] [address] [place] [address] [facility] [phone] [facility] N [address] (Wo rk) [...] on filedocumented in this encounter Care Teams Fur Grader Relationship Specialty Start Date End Date Ian Kendrick MD PCP - General 11/19/07 02/21/14 [facility] [address] [place] [address] documented as of this encounter
--- OUTSIDE RECORDS SUMMARY | 2022-05-15 23:08 | XMS_ITS | Encounter Summary ---
:1955 Author Organization [place] Address [address] [place] [address] Care Team Providers Name Role Phone Ian Kendrick MD Primary Care Provider [phone] Reason for Visit Reason Onset Date Comments Patient Request 01/05/2009 Encounter Details Date Type Department Care Team Description 01/05/2009 Telephone [facility] Ian Kendrick [place] [address] [place] [address]41 [facility] [phone] [facility] N [address] (Wo rk) Social [...] you attend buddhism or Patient refused 2020 protestant services? Do [...] sb/pls have Hazel call him regard inr/kd [phone] documented in this encounter Plan of Treatment Upcoming Encounters Date Type Specialty Care Team Description 05/20/2022 Lab Lab documented as of this encounter Visit Diagnoses Not on filedocumented in this encounter Care Teams Public Transit Specialist Relationship Specialty Start Date End Date Ian Kendrick MD PCP - General 11/19/07 02/21/14 [facility] [address] [place] [address] documented as of this encounter
--- OUTSIDE RECORDS SUMMARY | 2022-05-15 23:08 | XMS_ITS | Encounter Summary ---
:1955 Author Organization [place] Address [address] [place] [address] Care Team Providers Name Role Phone Ian Kendrick MD Primary Care Provider [phone] Encounter Details Date Type Department Care Team Description 12/13/2008 Results [facility] Results MD OMAR Daniels [facility] [address] [facility] [place] N [address] (Wo rk) Social History Tobacco Use Types [...] you attend gnosticism or Patient refused 2020 yazdanism services? Do [...] Procedure Name Priority Date/Time Associated Diagnosis Comme [facility] ZZC RT DUPLEX [...] filedocumented in this encounter Care Teams Client Services Vice President Relationship Specialty Start Date End Date Ian Kendrick MD PCP - General 11/19/07 02/21/14 [facility] [address] [place] [address] documented as of this encounter
--- OUTSIDE RECORDS SUMMARY | 2022-05-15 23:08 | XMS_ITS | Encounter Summary ---
:1955 Author Organization [place] Address [address] [place] [address] Care Team Providers Name Role Phone Ian Kendrick MD Primary Care Provider [phone] Reason for Visit Reason Onset Date Comments Patient Request 04/05/2009 Teva Assistance Prog bon Encounter Details Date Type Department Care Team Description 04/05/2009 Telephone [facility] Ian Kendrick t Request ([facility] [place] MD Jeremiah Assistance Program) [address] [place], [place] 3850 [facility] [address] [facility] [phone] [place] [address] (Wo rk) Social History Tobacco [...] you attend presybeterian or Patient refused 2020 baptism services? Do [...] do his rx's. Patient can be reach [phone]. documented in this encounter Plan of Treatment Upcoming Encounters Date Type Specialty Care Team Description 05/20/2022 Lab Lab documented as of this encounter Visit Diagnoses Not on filedocumented in this encounter Care Teams Vehicle Fuel Systems Converter Relationship Specialty Start Date End Date Ian Kendrick MD PCP - General 11/19/07 02/21/14 [facility] [address] [place] [address] documented as of this encounter
--- OUTSIDE RECORDS SUMMARY | 2022-05-15 23:08 | XMS_ITS | Encounter Summary ---
:1955 Author Organization [place] Address [address] [place] [address] Care Team Providers Name Role Phone Ian Kendrick MD Primary Care Provider [phone] Encounter Details Date Type Department Care Team Description 06/06/2009 [facility] [place] [address] (Wo rk) Social History Tobacco Use Types Packs/Day Years Used Date Smoking Tobacco: Former Cigarettes Comments: 2004 Alcohol Use Standard Drinks/Week Comments Yes 0 (1 standard drink = 0.6 oz pure alcoho l) 4 BEERS A WEEK Alcohol Habits Answer Date Recorded How often do you have a drink containing 4 or more times a w kaw 05/25/2021 alcohol? How many drinks containing alcohol [...] you attend jew or Patient refused 2020 catholic services? Do [...] Resul ts for this ENEMA WWO KUB TROUBLE CLERK procedure are in the results section. documented in this encounter Results X-RAY COLON CONTRAST (06/06/2009 11:00 AM TROUBLE CLERK) Anatomical Region Laterality Modality Other Specimen (Source) Anatomical Collection Method Collection Time Re ceived Time Location / / Volume Laterality 06/06/2009 11:00 AM TROUBLE CLERK Impressions 06/06/2009 9:15 PM TROUBLE CLERK WATER-SOLUBLE ENEMA ??Jun 06, 2009 11:01 :00 [...] filedocumented in this encounter Care Teams Engineering Document Control Clerk Relationship Specialty Start Date End Date Ian Kendrick MD PCP - General 11/19/07 02/21/14 [facility] [address] [place] [address] documented as of this encounter
--- OUTSIDE RECORDS SUMMARY | 2022-05-15 23:08 | XMS_ITS | Encounter Summary ---
:1955 Author Organization [place] Address [address] [place] [address] Care Team Providers Name Role Phone Ian Kendrick MD Primary Care Provider Encounter Details Date Type Department Care Team Description 01/05/2009 Historic Results INTERFACED REPORT Uriel Tyler MD [place] [facility] T[facility] [address] [place], [place] [address] (Wo rk) Social History Tobacco Use Types Packs/Day Years Used Date Smoking Tobacco: Former Cigarettes Comments: 2005 Alcohol Use Standard Drinks/Week Comments Yes 0 (1 standard drink = 0.6 oz pure alcoho l) 4 BEERS A WEEK Alcohol Habits Answer Date Recorded How often do you have a drink containing 4 or more times a w [place] 05/25/2021 alcohol? How many drinks [...] you attend holiness or Patient refused 2020 mosque services? Do [...] - BLOOD ORDERABLES Performing Organization Address City/State/[facility] Phon e Number MISYS (ABNORMAL) INR (01/05/2009 12:17 PM CDT) P athologist Signature INR 2.05 (H) 0.86 - 1.14 MISYS Specimen Anatomical Collection Method Collection Time Receive d Time (Source) Location / / Volume Laterality 01/05/2009 12:17 01/05/2009 PM CDT 12:52 PM CDT Uriel Tyler MD LAB - BLOOD ORDERABLES Performing Organization Address City/[facility] Phon e Number MISYS (ABNORMAL) Partial thromboplastin time (01/05/2009 12:17 PM CDT) P athologist Signature PTT 40 (H) 22 - 37 sec MISYS Specimen Anatomical Collection Method Collection Time Receive d Time (Source) Location / / Volume Laterality 01/05/2009 12:17 01/05/2009 PM CDT 12:52 PM CDT Uriel Tyler MD LAB - BLOOD ORDERABLES Performing Organization Address City/[facility] Phon e Number MISYS documented in this encounter Visit Diagnoses Not on filedocumented in this encounter Care Teams Boat Assembler Relationship Specialty Start Date End Date Ian Kendrick MD PCP - General 11/19/07 02/21/[address] [address] documented as of this encounter
--- OUTSIDE RECORDS SUMMARY | 2022-05-15 23:08 | XMS_ITS | Encounter Summary ---
:1955 Author Organization [place] Address [address] [place] [address] Care Team Providers Name Role Phone Ian Kendrick MD Primary Care Provider Reason for Visit Reason Onset Date Comments Forms 01/20/2009 Teva Assistance Qvar Encounter Details Date Type Department Care Team Description 01/20/2009 Telephone [facility] Ian Kendrick Forms (Teva Assistance Clinic [place] MD Jeremiah Qvar) [address] [place] [address] [place] [address] [facility] [phone] [place] [address] (Wo rk) Social History Tobacco [...] on filedocumented in this encounter Care Teams Physicist Astrophysics Relationship Specialty Start Date End Date Ian Kendrick MD PCP - General 11/19/07 02/21/14 [facility] [address] [place] [address] documented as of this encounter
--- OUTSIDE RECORDS SUMMARY | 2022-05-15 23:08 | XMS_ITS | Encounter Summary ---
:1955 Author Organization [place] Address [address] [place] [address] Care Team Providers Name Role Phone Ian Kendrick MD Primary Care Provider [phone] Reason for Visit Reason Comments Anticoagulation Encounter Details Date Type Department Care Team Description 12/26/2008 [facility] Anticoagulation Visit [address] [address] Social History Tobacco Use [...] you attend mu-ism or Patient refused 2020 taoism services? Do [...] documented in this encounter Visit Diagnoses Diagnosis fluid jet cutter operator (current) use of anticoagulant s Long-term (current) use of anticoagulant s documented in this encounter Care Teams Burlapper Relationship Specialty Start Date End Date Ian Kendrick MD PCP - General 11/19/07 02/21/14 [facility] [address] [place] [address] documented as of this encounter
--- OUTSIDE RECORDS SUMMARY | 2022-05-15 23:09 | XMS_ITS | Encounter Summary ---
:1955 Author Organization [facility] Address [address] [place] [address] Care Team Providers Name Role Phone Ian Kendrick MD Primary Care Provider [phone] Reason for Visit Reason Comments Anticoagulation Encounter Details Date Type Department Care Team Description 10/28/2008 [facility] Anticoagulation Visit [address] [address] Social History Tobacco [...] you attend scientology or Patient refused 2020 temple services? Do [...] documented in this encounter Visit Diagnoses Diagnosis assisted (current) use of anticoagulant s Long-term (current) use of anticoagulant s documented in this encounter Care Teams Gear Tooth Grinding Machine Operator Relationship Specialty Start Date End Date Ian Kendrick MD PCP - General 11/19/07 02/21/14 [facility] [address] [place] [address] documented as of this encounter
--- OUTSIDE RECORDS SUMMARY | 2022-05-15 23:09 | XMS_ITS | Encounter Summary ---
:1955 Author Organization [place] Address [address] [place] [address] Care Team Providers Name Role Phone Ian Kendrick MD Primary Care Provider [phone] Reason for Visit Reason Comments Anticoagulation Encounter Details Date Type Department Care Team Description 10/10/2008 [facility] Anticoagulation Visit [address] [address] Social History Tobacco [...] you attend baptist or Patient refused 2020 tenriism services? 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
--- OUTSIDE RECORDS SUMMARY | 2022-05-15 23:09 | XMS_ITS | Encounter Summary ---
:1955 Author Organization [place] Address [address] [place] [address] Care Team Providers Name Role Phone Ian Kendrick MD Primary Care Provider [phone] Reason for Visit Reason Comments Anticoagulation Encounter Details Date Type Department Care Team Description 09/13/2008 [facility] Anticoagulation Visit [address] [address] Social History Tobacco [...] you attend caodaism or Patient refused 2020 taoist services? Do [...] documented in this encounter Visit Diagnoses Diagnosis care home (current) use of anticoagulant s - Primary Long-term (current) use of anticoagulant s documented in this encounter Care Teams Patient Safety Coordinator Relationship Specialty Start Date End Date aIn Kendrick MD PCP - General 11/19/07 02/21/14 [facility] [address] [place] [address] documented as of this encounter
--- OUTSIDE RECORDS SUMMARY | 2022-05-15 23:09 | XMS_ITS | Encounter Summary ---
:1955 Author Organization [place] Address [address] [place] [address] Care Team Providers Name Role Phone Ian Kendrick MD Primary Care Provider [phone] Encounter Details Date Type Department Care Team Description 01/11/2008 Orders Only [facility] Ian Kendrick DIAGNO SIS NOT YET Clinic Modesandee Daniels MD DEFINED (Primary Dx) [address] [facility] [address] 76[address] [facility] [phone] [place] [address] (Wo rk) Social History [...] Ian Kendrick MD LABORATORY Performing Organization Address City/State/[facility] Code Phon e Number MISYS documented in this encounter Visit Diagnoses Diagnosis DIAGNOSIS NOT YET DEFINED - Primary documented in this encounter Care Teams Range Scientist Relationship Specialty Start Date End Date Ian Kendrick MD PCP - General 11/19/07 02/21/14 [place] [address] [place] [address] documented as of this encounter
--- OUTSIDE RECORDS SUMMARY | 2022-05-15 23:09 | XMS_ITS | Encounter Summary ---
:1955 Author Organization [place] Address [address] [place] [address] Care Team Providers Name Role Phone Ian Kendrick MD Primary Care Provider [phone] Reason for Visit Reason Comments Anticoagulation INR Encounter Details Date Type Department Care Team Description 09/29/2008 Allied Health/Nurse [facility] Ant icoagulation (INR) Visit [address] [address] Social History Tobacco Use Types [...] you attend bahai or Patient refused 2020 sabianism services? Do [...] in this encounter Visit Diagnoses Diagnosis terminal carman (current) use of anticoagulant s - Primary Long-term (current) use of anticoagulant s documented in this encounter Care Teams Technical Communication Teacher Relationship Specialty Start Date End Date Ian Kendrick MD PCP - General 11/19/07 02/21/14 [facility] [address] [place] [address] documented as of this encounter
--- OUTSIDE RECORDS SUMMARY | 2022-05-15 23:09 | XMS_ITS | Encounter Summary ---
:1955 Author Organization [place] Address [address] [place] [address] Care Team Providers Name Role Phone Ian Kendrick MD Primary Care Provider [phone] Reason for Visit Reason Onset Date Comments Refill Request 05/02/2008 beclomethasone dipro prionate Encounter Details Date Type Department Care Team Description 05/02/2008 Refill [facility] Ian Kendrick Refill Request Clinic Chhaya Daniels MD (beclomethasone [address] [facility] diproprionate) [place], [place] [address] [facility] [address] [facility] [phone] [place] [address] (Wo rk) Social History Tobacco [...] you attend evangelical or Patient refused 2020 denominational services? Do [...] is ready for pick-up at the office. CAL RECEPTION Telephone Encounter - Yulisa Acosta - 05/02/2008 4:10 PM CST Pt qualifies for medication assistance program offered by [facility]. The As Seen on TV represented part of this program carries Beconase [...] Class: Fax BIN [phone] Bin Name [employer] [facility] [employer] Group [id number] ID# [id number] Advocate [phone] ( Nadiya Acosta RN/ Ian Kendrick MD) CAL RECEPTION documented in this encounter Plan of Treatment Upcoming Encounters Date Type Specialty Care Team Description 05/20/2022 Lab Lab documented as of this encounter Visit Diagnoses Diagnosis Chronic rhinitis - Primary documented in this encounter Care Teams Outside Sales Representative Relationship Specialty Start Date End Date Ian Kendrick MD PCP - General 11/19/07 02/21/14 [facility] [address] [place] [address] documented as of this encounter
--- OUTSIDE RECORDS SUMMARY | 2022-05-15 23:09 | XMS_ITS | Encounter Summary ---
:1955 Author Organization [facility] Address [address] [place] [address] Care Team Providers Name Role Phone Ian Kendrick MD Primary Care Provider [phone] Reason for Visit Reason Comments Anticoagulation Encounter Details Date Type Department Care Team Description 02/03/2008 Allied Health/Nurse Health [facility] Anticoagulation Visit [address] [address] Social History Tobacco [...] in this encounter Visit Diagnoses Diagnosis intermediate (current) use of anticoagulant s - Primary Long-term (current) use of anticoagulant s documented in this encounter Care Teams Life Enrichment Specialist Relationship Specialty Start Date End Date Ian Kendrick MD PCP - General 11/19/07 02/21/14 [facility] [address] [place] [address] documented as of this encounter
--- OUTSIDE RECORDS SUMMARY | 2022-05-15 23:09 | XMS_ITS | Encounter Summary ---
:1955 Author Organization [facility] Address [address] [place] [address] Care Team Providers Name Role Phone Ian Kendrick MD Primary Care Provider [phone] Encounter Details Date Type Department Care Team Description 01/11/2008 Orders Only [facility] Ian Kendrick DIAGNO SIS NOT YET Clinic Sabattussandee Daniels MD DEFINED (Primary Dx) [address] [facility] [address] 78[address] [facility] [phone] [place] [address] (Wo rk) Social History Tobacco [...] you attend tenriism or Patient refused 2020 sikh services? Do [...] Priority Date/Time Associated Diagnosis Comme nts SCANNED [facility]. LAB RESULTS Routine 01/11/2008 DIAGNOSIS NOT Y [...] Primary documented in this encounter Care Teams Carbonation Equipment Operator Relationship Specialty Start Date End Date Ian Kendrick MD PCP - General 11/19/07 02/21/14 [place] [address] [place] [address] documented as of this encounter
--- OUTSIDE RECORDS SUMMARY | 2022-05-15 23:09 | XMS_ITS | Encounter Summary ---
:1955 Author Organization [facility] Address [address] [place] [address] Care Team Providers Name Role Phone Ian Kendrick MD Primary Care Provider [phone] Reason for Visit Reason Comments Anticoagulation Encounter Details Date Type Department Care Team Description 05/24/2008 Allied Health/Nurse Health [facility] Anticoagulation Visit [address] [address] Social History Tobacco [...] you attend adventist or Patient refused 2020 samaritan services? Do [...] See: ANTICOAGULATION QIC flow sheet. LV NURSE D CARE LEAD TEACHER documented in this encounter Plan of Treatment Upcoming Encounters Date Type Specialty Care Team Description 05/20/2022 Lab Lab documented as of this encounter Visit Diagnoses Diagnosis FCI (current) use of anticoagulant s - Primary Long-term (current) use of anticoagulant s documented in this encounter Care Teams Group Work Program Director Relationship Specialty Start Date End Date Ian Kendrick MD PCP - General 11/19/07 02/21/14 [place] [address] [place] [address] documented as of this encounter
--- OUTSIDE RECORDS SUMMARY | 2022-05-15 23:09 | XMS_ITS | Encounter Summary ---
:1955 Author Organization [facility] Address [address] [place] [address] Care Team Providers Name Role Phone Ian Kendrick MD Primary Care Provider [phone] Reason for Visit Reason Onset Date Comments Refill Request 05/24/2008 coumadin Encounter Details Date Type Department Care Team Description 05/24/2008 Refill [facility] Ian Kendrick Refill Request Clinic Hiland MD Jeremiah (coumadin) [address] [place] [address] [place] [address] [facility] [phone] [place] [address] (Wo rk) Social History Tobacco Use Types Packs/Day Years Used Date Smoking Tobacco: Former Cigarettes Comments: 2004 Alcohol Use Standard Drinks/Week Comments Yes 0 (1 standard drink = 0.6 oz pure alcoho l) 4 BEERS A WEEK Alcohol Habits Answer Date Recorded How often do you have a drink containing 4 or more times a w [place] 05/25/2021 alcohol? How many drinks containing alcohol [...] you attend druze or Patient refused 2020 orthodox services? Do [...] filled per nursing protocol. Nadiya Acosta RN PTURE INSTRUCTOR documented in this encounter Plan of Treatment Upcoming Encounters Date Type Specialty Care Team Description 05/20/2022 Lab Lab documented as of this encounter Visit Diagnoses Diagnosis VENOUS THROMBOSIS NOS - Primary Embolism and thrombosis of unspecified s ite documented in this encounter Care Teams Primary Health Care Nurse Relationship Specialty Start Date End Date Ian Kendrick MD PCP - General 11/19/07 02/21/[address] [address] documented as of this encounter
--- OUTSIDE RECORDS SUMMARY | 2022-05-15 23:09 | XMS_ITS | Encounter Summary ---
:1955 Author Organization [facility] Address [address] [place] [address] Care Team Providers Name Role Phone Ian Kendrick MD Primary Care Provider [phone] Reason for Referral Specialty Diagnoses / Procedures Referred By Contact Refer red To Contact Ian Kendrick And MD rufus [facility] [address] [place], [place] [address] Referral ID Status Reason Start Date Expiration Date Visits Requ ested Visits Authorized Encounter Details Date Type Department Care Team Description 09/22/2008 Orders Only [facility] Ian Kendrick DIAGNO SIS NOT YET Clinic Chhaya Daniels MD DEFINED (Primary Dx) [address] [place], [place] CLINIC [address] [facility]7 [facility] [phone] [place] [address] (Wo rk) Social History Tobacco [...] you attend quaker or Patient refused 2020 mu-ism services? Do [...] Routine 09/22/2008 DIAGNOSIS NOT YE T DEFINED PRENATAL GENETIC COUNSELOR REFERRAL documented in this encounter Results CONSULT COLONRECTAL SURG (09/22/2008) Specimen (Source) Anatomical Location Collection Method / Collectio n Time Received Time / Laterality Volume 09/22/2008 Narrative This result has an attachment that is no t available. Ian Kendrick MD REFERRAL documented in this encounter Visit Diagnoses Diagnosis DIAGNOSIS NOT YET DEFINED - Primary documented in this encounter Care Teams Acetone Recovery Worker Relationship Specialty Start Date End Date Ian Kendrick MD PCP - General 11/19/07 02/21/14 [facility] [address] [place] [address] documented as of this encounter
--- OUTSIDE RECORDS SUMMARY | 2022-05-15 23:09 | XMS_ITS | Encounter Summary ---
:1955 Author Organization [facility] Address [address] [place] [address] Care Team Providers Name Role Phone Ian Kendrick MD Primary Care Provider [phone] Encounter Details Date Type Department Care Team Description 01/10/2008 Orders Only [facility] Ian Kendrick DIAGNO SIS NOT YET Clinic [place] MD DEFINED (Primary Dx) [address] [facility] [address] 5[address] [facility] [phone] [place] [address] (Wo rk) Social History Tobacco [...] you attend bahai or Patient refused 2020 worship services? Do [...] Ian Kendrick MD LABORATORY Performing Organization Address City/[facility]/ZIP Code Phon e Number MISYS POTASSIUM (01/10/2008) [...] Primary documented in this encounter Care Teams Front End Web Designer Relationship Specialty Start Date End Date Ian Kendrick MD PCP - General 11/19/07 02/21/14 [place] [address] [place] [address] documented as of this encounter
--- OUTSIDE RECORDS SUMMARY | 2022-05-15 23:09 | XMS_ITS | Encounter Summary ---
:1955 Author Organization [facility] Address [address] [place] [address] Care Team Providers Name Role Phone Ian Kendrick MD Primary Care Provider [phone] Reason for Visit Reason Comments Anticoagulation Encounter Details Date Type Department Care Team Description 09/06/2008 Allied Health[facility] Anticoagulation Visit [address] [address] Social History Tobacco [...] you attend mandaeism or Patient refused 2020 nondenominational services? Do [...] documented in this encounter Visit Diagnoses Diagnosis watermaster (current) use of anticoagulant s Long-term (current) use of anticoagulant s documented in this encounter Care Teams Blow Mold Technician Relationship Specialty Start Date End Date Ian Kendrick MD PCP - General 11/19/07 02/21/14 [facility] [address] [place] [address] documented as of this encounter
--- OUTSIDE RECORDS SUMMARY | 2022-05-15 23:09 | XMS_ITS | Encounter Summary ---
:1955 Author Organization [facility] Address [address] [place] [address] Care Team Providers Name Role Phone Ian Kendrick MD Primary Care Provider [phone] Encounter Details Date Type Department Care Team Description 01/10/2008 Emergency room Chato Rocha MD EMERGENCY PHYSIC [facility] [address] [place] [address] (Wo rk) Social History [...] he is to follow up with the [employer] principal tomorrow. We also did discuss the chest [...] concerns. Follow up with your doctor and [employer] principal in 1 days. EMERGENCY DEPARTMENT DIAGNOSES: 1. Fever. 2. Deep venous thrombosis. 3. Ulcerative colitis. 4. Joint pain. Electronically signed on 01/17/2008 16:57 by GARY ROCHA MD MT: [id number] Name: ANITA CHRISTINE MRN: [id number] Account: [id number] : 1955 Visit Date: 01/10/2008 Document: [id number] cc: Ian Kendrick MD documented in this encounter Plan of Treatment Upcoming Encounters Date Type Specialty Care Team Description 05/20/2022 Lab Lab documented as of this encounter Visit Diagnoses Not on filedocumented in this encounter Care Teams Foreign Legal Consultant Relationship Specialty Start Date End Date Ian Kendrick MD PCP - General 11/19/07 02/21/14 [facility] [address] [place] [address] documented as of this encounter
--- OUTSIDE RECORDS SUMMARY | 2022-05-15 23:09 | XMS_ITS | Encounter Summary ---
:1955 Author Organization [facility] Address [address] [place] [address] Care Team Providers Name Role Phone Ian Kendrick MD Primary Care Provider [phone] Reason for Visit Reason Onset Date Comments Refill Request 09/09/2008 qvar inhalers, new r x for atrovent as well would like double order Formulary Issue 09/13/2008 Savannah Suarez Encounter Details Date Type Department Care Team Description 09/09/2008 Refill [facility] Ian Kendrick Refill Request (qvar Clinic Chhaya Daniels [place], [place] [address] [facility] CLINIC atrovent as well would [address] like connie ble order); [id number] [address]VD Formulary Issue (Qvar, [place], [place] Proair) [address] (Wo rk) Social History [...] you attend jew or Patient refused 2020 holiness services? Do [...] not cover Qvar/Proair Contact: Pt went to [facility] to hand picker the following rx's and found out his insurance does not cover these. He needs Dr. Kendrick send over new rx that his insurance will cover. If you have anyquestions pt can be reach at [phone]. Qvar Proair Inhaler Telephone Encounter - Mirna [...] Nay Bella - 09/09/2008 9:59 AM CDT [phone] (home) Call patient when inhalers are approved. [...] asthma documented in this encounter Care Teams Fitness And Wellness Instructor Relationship Specialty Start Date End Date Ian Kendrick MD PCP - General 11/19/07 02/21/14 [facility] [address] [place] [address] documented as of this encounter
--- OUTSIDE RECORDS SUMMARY | 2022-05-15 23:09 | XMS_ITS | Encounter Summary ---
:1955 Author Organization [facility] Address [address] [place] [address] Care Team Providers Name Role Phone Ian Kendrick MD Primary Care Provider [phone] Reason for Visit Reason Comments Anticoagulation Encounter Details Date Type Department Care Team Description 07/28/2008 Allied Health/Nurse Health [facility] Anticoagulation Visit [address] [address] Social History Tobacco [...] you attend gnosticism or Patient refused 2020 temple services? Do [...] See: ANTICOAGULATION QIC flow sheet. 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
--- OUTSIDE RECORDS SUMMARY | 2022-05-15 23:09 | XMS_ITS | Encounter Summary ---
:1955 Author Organization [facility] Address [address] [place] [address] Care Team Providers Name Role Phone Ian Kendrick MD Primary Care Provider [phone] Reason for Visit Reason Comments Anticoagulation Encounter Details Date Type Department Care Team Description 03/29/2008 Allied Health/Nurse [facility] Anticoagulation Visit [address] [address] Social History Tobacco Use [...] Embolism and thrombosis of unspecified s ite marine oil terminal superintendent (current) use of anticoagulant s Long-term (current) use of anticoagulant s documented in this encounter Care Teams Associate Programmer Relationship Specialty Start Date End Date Ian Kendrick MD PCP - General 11/19/07 02/21/14 [facility] [address] [place] [address] documented as of this encounter
--- OUTSIDE RECORDS SUMMARY | 2022-05-15 23:09 | XMS_ITS | Encounter Summary ---
:1955 Author Organization [facility] Address [address] [place] [address] Care Team Providers Name Role Phone Ian Kendrick MD Primary Care Provider [phone] Reason for Visit Reason Onset Date Comments Forms 08/26/2008 Patient assistance f orms Encounter Details Date Type Department Care Team Description 08/26/2008 Telephone [facility] Ian Kendrick Forms (Patient Clinic [place] MD Jeremiah assistance forms) [address] [place] [address] [place] [phone] [facility] [phone] [place] [address] (Wo rk) Social History Tobacco [...] you attend protestant or Patient refused 2020 buddhist services? Do [...] in patient assistance programs. Mirna Lagunas RN S FRAME FITTER documented in this encounter Plan of Treatment Upcoming Encounters Date Type Specialty Care Team Description 05/20/2022 Lab Lab documented as of this encounter Visit Diagnoses Not on filedocumented in this encounter Care Teams Poultry Picker Relationship Specialty Start Date End Date Ian Kendrick MD PCP - General 11/19/07 02/21/14 [place] [address] [place] [address] documented as of this encounter
--- OUTSIDE RECORDS SUMMARY | 2022-05-15 23:09 | XMS_ITS | Encounter Summary ---
:1955 Author Organization [facility] Address [address] [place] [address] Care Team Providers Name Role Phone Ian Kendrick MD Primary Care Provider Encounter Details Date Type Department Care Team Description 05/03/2008 Medical Correspondence [facility] Polo Kendrick [facility] [place] TO ACCESS [facility] MD Jeremiah [address] [address] [facility] [phone] [place] [address] Social History Tobacco Use Types [...] on filedocumented in this encounter Care Teams Appetizer Packer Relationship Specialty Start Date End Date Ian Kendrick MD PCP - General 11/19/07 02/21/14 [facility] [address] [place] [address] documented as of this encounter
--- OUTSIDE RECORDS SUMMARY | 2022-05-15 23:09 | XMS_ITS | Encounter Summary ---
:1955 Author Organization [place] Address [address] [place] [address] Care Team Providers Name Role Phone Ian Kendrick MD Primary Care Provider [phone] Reason for Referral Office Workup No CT/MRI - Closed Specialty Diagnoses / Procedures Referred By Contact Refer red To Contact Diagnoses Embolism and thrombosis of unspecified site Ian Kendrick UMPHYS MD ONCOLOGY/HEMATOLOGY [address] FLO[address] [place], [place] [address] [place] [address] Phone: [phone] Referral ID Status Reason Start Date Expiration Date Visits Requ ested Visits Authorized [id number] Closed 09/24/2008 06/22/2011 1 1 Reason for Visit Reason Onset Date Comments Referral 09/22/2008 hematology Encounter Details Date Type Department Care Team Description 09/22/2008 Telephone [facility] Ian Kendrick Referr al (hematology) Clinic [employer] MD Jeremiah [address] [place], [place] 38[address] [facility] [address] [address] [phone] [place] [address] (Wo rk) Social History Tobacco [...] you attend caodaism or Patient refused 2020 samaritan services? Do [...] Hematology groups. I created a referral to [facility] Hematology. Please contact him and give him the number. Let me know if he has other questions. Thanks, SAB Telephone Encounter - Hazel Jj - 09/22/2008 4:57 PM CDT Patient wants second opinion from a different head nurse. Is this ok? Telephone Encounter - Hazel Jj - 09/22/2008 4:55 PM CDT Staff Message copied by HAZEL JJ on FriSep 22, 2008 4:55 PM ------ Message from: JAKOB WORRELL Created: FriSep 22, 2008 4:15 PM Regarding: Christelle/Mireille Contact: Virgil would like a 2nd opinion. He needs to be referred to another Supervisor Beet End. Virgil can be reachedat [phone]. DL 4-2@4:17pm Telephone Encounter - Hazel Jj [...] He needs to be referred to another Supervisor Beet End. Virgil can be reachedat [phone]. DL 4-2@4:17pm documented in this encounter Plan of Treatment Upcoming Encounters Date Type Specialty Care Team Description 05/20/2022 Lab Lab documented as of this encounter Visit Diagnoses Diagnosis VENOUS THROMBOSIS NOS - Primary Embolism and thrombosis of unspecified s ite documented in this encounter Care Teams Dry Roller Relationship Specialty Start Date End Date Ian Kendrick MD PCP - General 11/19/07 02/21/14 [facility] [address] [place] [address] documented as of this encounter
--- OUTSIDE RECORDS SUMMARY | 2022-05-15 23:09 | XMS_ITS | Encounter Summary ---
:1955 Author Organization [facility] Address [address] [place] [address] Care Team Providers Name Role Phone Ian Kendrick MD Primary Care Provider [phone] Reason for Visit Reason Onset Date Comments INR Followup 09/20/2008 Encounter Details Date Type Department Care Team Description 09/20/2008 Telephone [facility] Ian Kendrick, INR Followup Prior Maurizio VILLASEÑOR [address] [place] [address] [place] [address] [place] [address] (Wo rk) Social History Tobacco [...] you attend orthodoxy or Patient refused 2020 jewish services? Do [...] 9 am on 09/21/08. His phone is [phone]. Fletcher Gentile LPN Telephone Encounter - Fletcher [...] next INR. Pt can be reach at [phone]. documented in this encounter Plan of Treatment Upcoming Encounters Date Type Specialty Care Team Description 05/20/2022 Lab Lab documented as of this encounter Visit Diagnoses Not on filedocumented in this encounter Care Teams Boiler Setter Relationship Specialty Start Date End Date Ian Kendrick MD PCP - General 11/19/07 02/21/14 [facility] [address] [place] [address] documented as of this encounter
--- OUTSIDE RECORDS SUMMARY | 2022-05-15 23:09 | XMS_ITS | Encounter Summary ---
:1955 Author Organization [facility] Address [address] [place] [address] Care Team Providers Name Role Phone Ian Kendrick MD Primary Care Provider [phone] Reason for Visit Reason Comments Anticoagulation INR Encounter Details Date Type Department Care Team Description 09/22/2008 Allied Health/Nurse [facility] Ant icoagulation (INR) Visit [address] [address] Social History Tobacco Use Types [...] you attend sabianism or Patient refused 2020 evangelical services? Do [...] Ian Kendrick MD LABORATORY Performing Organization Address City/State/[facility] Code Phon e Number [facility] documented in this encounter Visit Diagnoses Diagnosis halfway (current) use of anticoagulant s Long-term (current) use of anticoagulant s documented in this encounter Care Teams Poultry Process Worker Relationship Specialty Start Date End Date Ian Kendrick MD PCP - General 11/19/07 02/21/14 [facility] [address] [place] [address] documented as of this encounter
--- OUTSIDE RECORDS SUMMARY | 2022-05-15 23:09 | XMS_ITS | Encounter Summary ---
:1955 Author Organization [place] Address [address] [place] [address] Care Team Providers Name Role Phone Ian Kendrick MD Primary Care Provider [phone] Encounter Details Date Type Department Care Team Description 07/07/2008 Telephone [facility] [place] [address] [place] [address] [facility] [phone] [facility] N [address] (Wo rk) [...] you attend taoism or Patient refused 2020 zoroastrianism services? Do [...] PM CST PATIENT INFORMED WE DO NOT. E RANCHER Telephone Encounter - Heriberto Khan - 07/07/2008 2:59 PM [facility] Staff Message copied by HERIBERTO KHAN on FriJul 07, 2008 2:59 PM ------ Message from: JAKOB WORRELL Created: FriJul 07, 2008 10:54 AM Regarding: Phone Message/Bershow Contact: Virgil was wondering if we had any Actrovent samples he could have? He can be reached at [phone]. Dl -15@11:12am E RANCHER documented in this encounter Plan of Treatment Upcoming Encounters Date Type Specialty Care Team Description 05/20/2022 Lab Lab documented as of this encounter Visit Diagnoses Diagnosis Other dyspnea and respiratory abnormalit y documented in this encounter Care Teams Software Development Coordinator Relationship Specialty Start Date End Date Ian Kendrick MD PCP - General 11/19/07 02/21/14 [facility] [address] [place] [address] documented as of this encounter
--- OUTSIDE RECORDS SUMMARY | 2022-05-15 23:09 | XMS_ITS | Encounter Summary ---
:1955 Author Organization [place] Address [address] [place] [address] Care Team Providers Name Role Phone Ian Kendrick MD Primary Care Provider Reason for Visit Reason Comments Ear Problem left ear cleaning Encounter Details Date Type Department Care Team Description 06/21/2008 Allied Health/Nurse [facility] Ear Problem (left ear Visit Clinic Railroad cleaning) [address] [place] [address] Social History Tobacco Use Types [...] you attend mandaen or Patient refused 2020 samaritan services? Do [...] filedocumented in this encounter Care Teams Quality Control Projectionist Relationship Specialty Start Date End Date [place], Ian Jeremiah, MD PCP - General 11/19/07 02/21/14 [facility] [address] [place] [address] documented as of this encounter
--- OUTSIDE RECORDS SUMMARY | 2022-05-15 23:09 | XMS_ITS | Encounter Summary ---
:1955 Author Organization [facility] Address [address] [place] [address] Care Team Providers Name Role Phone Ian Kendrick MD Primary Care Provider [phone] Reason for Visit Reason Onset Date Comments Refill Request 10/05/2008 leslie Encounter Details Date Type Department Care Team Description 10/05/2008 Refill [facility] Ian Kendrick Refill Request [facility] MD Jeremiah (atrovent) [address] [place] [address] [place] [address] [facility] [phone] [place] [address] (Wo rk) Social History Tobacco Use Types Packs/Day Years Used Date Smoking Tobacco: Former Cigarettes Comments: 2004 Alcohol Use Standard Drinks/Week Comments Yes 0 (1 standard drink = 0.6 oz pure alcoho l) 4 BEERS A WEEK Alcohol Habits Answer Date Recorded How often do you have a drink containing 4 or more times a w koi 05/25/2021 alcohol? How many drinks containing alcohol [...] you attend sikhism or Patient refused 2020 mu-ism services? Do [...] y documented in this encounter Care Teams Lead Designer Relationship Specialty Start Date End Date Ian Kendrick MD PCP - General 11/19/07 02/21/14 [place] [address] [place] [address] documented as of this encounter
--- OUTSIDE RECORDS SUMMARY | 2022-05-15 23:09 | XMS_ITS | Encounter Summary ---
:1955 Author Organization [facility] Address [address] [place] [address] Care Team Providers Name Role Phone Ian Kendrick MD Primary Care Provider [phone] Encounter Details Date Type Department Care Team Description 01/10/2008 Historic Results [facility] [place] [address] [place] [address] 0564 [facility] [phone] [place] [address] (Wo rk) Social History Tobacco [...] you attend christian or Patient refused 2020 restoration services? Do [...] UA with microscopic (01/10/2008 5:40 PM CDT) [facility] Method Time Signature Source Midstream MISYS Urine Color Urine Yellow MISYS Appearance Urine Clear MISYS Glucose Urine Negative NEG mg/dL MISYS Bilirubin Urine Negative NEG MISYS Ketones Urine Negative NEG mg/dL MISYS Specific [place] 1.018 1.003 - MISYS Urine 1.035 Blood [...] LAB - URINE ORDERABLES Performing Organization Address City/[facility] Code Phon e Number MISYS Urine culture (01/10/2008 5:40 PM CDT) [facility] Method Time Signature Specimen Midstream MISYS Description Urine Culture Micro No growth MISYS Micro Report FINAL MISYS Status 01/12/2008 Specimen Anatomical Collection Method Collection Time Receive d Time (Source) Location / / Volume Laterality 01/10/2008 5:40 PM 8 4:50 CDT PM CDT Gary Leblanc MD LAB - MICRO GENERAL ORDERABL ES Performing Organization Address [facility] Phon e Number MISYS Blood culture (01/10/2008 5:20 PM CDT) [facility] Why Not Give Back Method Time Signature Specimen Left Arm MISYS Description Culture Micro No growth MISYS after 6 days Micro Report FINAL MISYS Status [id number] Specimen Anatomical Collection Method Collection Time Receive d Time (Source) Location / / Volume Laterality 01/10/2008 5:20 PM 8 4:50 CDT PM CDT Gary Leblanc MD LAB - MICRO GENERAL ORDERABL ES Performing Organization Address [facility] Phon e Number MISYS Rapid strep screen (01/10/2008 5:20 PM CDT) Component Value Ref Test Analysis Performed At [facility] Why Not Give Back Range Method Time Signature Specimen Throat MISYS [...] MICRO GENERAL ORDERABL ES Performing Organization Address [facility] Phon e Number MISYS Beta strep group A culture (01/10/2008 5:20 PM CDT) Component Value Ref Test Analysis Performed At [facility] Why Not Give Back Range Method Time Signature Specimen Throat MISYS [...] Performing Organization Address City/[facility] Phon e Number MISYS Blood culture (01/10/2008 5:00 PM CDT) Patholo gist Method Time Signature Specimen Blood MISYS Description Culture Micro No growth MISYS after 6 days Micro Report FINAL MISYS Status [id number] Specimen Anatomical Collection Method Collection Time Receive d Time (Source) Location / / Volume Laterality 01/10/2008 5:00 PM 8 4:50 CDT PM CDT Gary Leblanc MD LAB - MICRO GENERAL ORDERABL ES Performing Organization Address City/[facility]/ZIP Code Phon e Number MISYS documented in this encounter Visit Diagnoses Not on filedocumented in this encounter Care Teams Instructor Knitting Relationship Specialty Start Date End Date Ian Kendrick MD PCP - General 11/19/07 02/21/14 [facility] [address] [place] [address] documented as of this encounter
--- OUTSIDE RECORDS SUMMARY | 2022-05-15 23:09 | XMS_ITS | Encounter Summary ---
:1955 Author Organization [facility] Address [address] [place] [address] Care Team Providers Name Role Phone Ian Kendrick MD Primary Care Provider [phone] Reason for Visit Reason Comments Anticoagulation Encounter Details Date Type Department Care Team Description 03/03/2008 [facility] Anticoagulation Visit [address] [address] Social History Tobacco Use [...] you attend islam or Patient refused 2020 buddhism services? Do [...] documented in this encounter Visit Diagnoses Diagnosis supervisor intermediates (current) use of anticoagulant s - Primary Long-term (current) use of anticoagulant s documented in this encounter Care Teams Ssrs Developer Relationship Specialty Start Date End Date Ian Kendrick MD PCP - General 11/19/07 02/21/14 [facility] [address] [place] [address] documented as of this encounter
--- OUTSIDE RECORDS SUMMARY | 2022-05-15 23:10 | XMS_ITS | Encounter Summary ---
:1955 Author Organization [facility] Address [address] [place] [address] Care Team Providers Name Role Phone Unavailable Primary Care Provider Unavailable Reason for Referral Office Workup No CT/MRI - Closed Specialty Diagnoses / Procedures Referred By Contact Refer red To Contact Diagnoses Ulcerative colitis, unspecified Ian Kendrick MD [facility]STR[facility]OLOGY[facility] [address] [facility] [address] [facility] [address] [place], [place] [address] [place] [address] Fax: Referral ID Status Reason Start Date Expiration Date Visits Requ ested Visits Authorized [id number] Closed 10/20/2007 06/22/2011 1 1 Reason for Visit Reason Comments Blood Draw new pt needs an INR. DVTs in right leg. RECHECK SCARS on stomach after surge ry. Rectal Problem pt complains of hemerrhoids Encounter Details Date Type Department Care Team Description [facility]/20[facility]; Clinic Chhaya Daniels MD RESPIRATORY ABNORM NEC; [facility] [facility] VENOUS THROMBOSIS NOS [place], [place] CLINIC [address] [address] [facility] [phone] [place] [address] (Wo rk) Social History Tobacco Use Types Packs/Day Years Used Date Smoking Tobacco: Former Cigarettes Comments: 2004 Alcohol Use Standard Drinks/Week Comments Yes 0 (1 standard drink = 0.6 oz pure alcoho l) 4 BEERS A WEEK Alcohol Habits Answer Date Recorded How often do you have a drink containing 4 or more times a w [place] 05/25/2021 alcohol? How many drinks containing alcohol [...] you attend spiritism or Patient refused 2020 orthodoxy services? Do [...] of: 1. establish care - arrived in [place] on September 30, has been getting care in [facility]. 2. ulcerative colitis - Recent colostomy takedown in 07/31. He is without ulcerative colitis medications with the exception of loperamide. He is still having trouble making formed stools unless he takesloperamide. because of the need to push to evacuate, however, he has pramod to have a significant problem with hemorrhoids. Has seen Dr. Westbrook at a colorectal surgery while in [place] in the past. He believes he worked out of [facility]. He is also on famotidine. He is [...] history, are all reviewed and updated in [facility]. Current Outpatient Rx Name Route Sig Dispense [...] Plan: FAMOTIDINE 20 MG OR TABS, CONSULT [facility] He will need to establish care with Gastroenterology for his ongiong ulcerative colitis symptoms. Iao recommended a referral to [facility] for management of his hemorrhoids. He [...] greater than 50% of 30 minutes in xbvg-ax-abwk time counseling patient regarding ulcerative colitis and [...] completed using cuff size: lorne Lermay Pasha NARROW FABRIC CALENDERER documented in this encounter Plan of Treatment Upcoming Encounters Date Type Specialty Care Team Description 05/20/2022 Lab Lab documented as of this encounter Procedures Procedure Name Priority Date/Time Associated Diagnosis Comme nts CL AFF PROTHROMBIN Routine 10/20/2007 3:50 PM Venous Thrombosi s Results for this TIME CDT Nos procedure are i n the results section. ZZ CONSULT Routine 10/24/2006 Unspecified [facility] Ulcerative Colitis documented in this encounter Results (ABNORMAL) PROTHROMBIN TIME (10/20/2007 3:50 PM CDT) P athologist Signature INR 1.40 (H) 0.86 - 1.14 [facility] LAB Specimen Anatomical Collection Method Collection Time Receive d Time (Source) Location / / Volume Laterality 10/20/2007 3:50 PM 8 3:51 CDT PM CDT Ian Kendrick MD LABORATORY Performing Organization Address City/State/ZIP Code Phon e Number [facility] [address] [place] [address] [facility] CONSULT [facility]O (10/24/2006) Narrative This result has an attachment that is no t available. Ian Kendrick MD REFERRAL documented in this encounter Visit Diagnoses Diagnosis Ulcerative colitis, unspecified Other dyspnea and respiratory abnormalit y Embolism and thrombosis of unspecified s ite documented in this encounter
--- OUTSIDE RECORDS SUMMARY | 2022-05-15 23:10 | XMS_ITS | Encounter Summary ---
:1955 Author Organization [place] Address [address] [place] [address] Care Team Providers Name Role Phone Ian Kendrick MD Primary Care Provider [phone] Encounter Details Date Type Department Care Team Description 09/07/2007 Orders Only [facility] Ian Kendrick DIAGNO SIS NOT YET Clinic [place] Daniels MD DEFINED (Primary Dx) [address] [facility] [address] [address] [facility] [phone] [place] [address] (Wo rk) Social History Tobacco [...] you attend worship or Patient refused 2020 jew services? Do [...] Primary documented in this encounter Care Teams Booster Operator Relationship Specialty Start Date End Date Ian Kendrick MD PCP - General 11/19/07 02/21/14 [place] [address] [place] [address] documented as of this encounter
--- OUTSIDE RECORDS SUMMARY | 2022-05-15 23:10 | XMS_ITS | Encounter Summary ---
:1955 Author Organization [facility] Address [address] [place] [address] Care Team Providers Name Role Phone Ian Kendrick MD Primary Care Provider [phone] Reason for Visit Reason Comments Anticoagulation Encounter Details Date Type Department Care Team Description 12/03/2007 [facility] Anticoagulation Visit [address] [address] Social History Tobacco Use [...] you attend shinto or Patient refused 2020 restorationist services? 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
--- OUTSIDE RECORDS SUMMARY | 2022-05-15 23:10 | XMS_ITS | Encounter Summary ---
:1955 Author Organization [place] Address [address] [place] [address] Care Team Providers Name Role Phone Ian Kendrick MD Primary Care Provider [phone] Encounter Details Date Type Department Care Team Description 01/10/2008 Results Only [facility] Gary Burkett MD Hospital Results EMERG[facility]Y [facility] [address] [place] [address] (Wo rk) Social History [...] Procedure Name Priority Date/Time Associated Diagnosis Comme [facility] CHEST TWO VIEWS, Routine 01/10/2008 5:37 PM [...] on filedocumented in this encounter Care Teams Street Roller Engineer Relationship Specialty Start Date End Date Ian Kendrick MD PCP - General 11/19/07 02/21/14 [facility] [address] [place] [address] documented as of this encounter
--- OUTSIDE RECORDS SUMMARY | 2022-05-15 23:10 | XMS_ITS | Encounter Summary ---
:1955 Author Organization [facility] Address [address] [place] [address] Care Team Providers Name Role Phone Ian Kendrick MD Primary Care Provider [phone] Reason for Visit Reason Onset Date Comments Patient Request 11/30/2007 see note Encounter Details Date Type Department Care Team Description 11/30/2007 Telephone [facility] Ian Kendrick t Request (see [facility] [place] MD Jeremiah note) [address] [place], [place] 3850 [facility] [address] [facility] [phone] [place] [address] (Wo rk) Social History Tobacco Use Types Packs/Day Years Used Date Smoking Tobacco: Former Cigarettes Comments: 2004 Alcohol Use Standard Drinks/Week Comments Yes 0 (1 standard drink = 0.6 oz pure alcoho l) 4 BEERS A WEEK Alcohol Habits Answer Date Recorded How often do you have a drink containing 4 or more times a w [place] 05/25/2021 alcohol? How many drinks containing alcohol [...] you attend adventist or Patient refused 2020 tenriism services? Do [...] 4:49 PM CDT Got a call from [employer] [phone]. States that the pt was there to [...] on filedocumented in this encounter Care Teams Posting Machine Operator Relationship Specialty Start Date End Date Ian Kendrick MD PCP - General 11/19/07 02/21/14 [facility] [address] [place] [address] documented as of this encounter
--- OUTSIDE RECORDS SUMMARY | 2022-05-15 23:10 | XMS_ITS | Encounter Summary ---
:1955 Author Organization [facility] Address [address] [place] [address] Care Team Providers Name Role Phone Unavailable Primary Care Provider Unavailable Reason for Visit Reason Onset Date Comments Refill Request 11/17/2007 loperamide Encounter Details Date Type Department Care Team Description 11/17/2007 Refill [facility] Ian Kendrick Refill Request Clinic [place] MD Jeremiah (loperamide) [address] [place], [place] 49[address] [facility] [address] [facility] [phone] [place] [address] (Wo rk) Social History Tobacco [...] you attend baptist or Patient refused 2020 evangelical services? Do [...]
--- OUTSIDE RECORDS SUMMARY | 2022-05-15 23:10 | XMS_ITS | Encounter Summary ---
:1955 Author Organization [place] Address [address] [place] [address] Care Team Providers Name Role Phone Ian Kendrick MD Primary Care Provider [phone] Reason for Referral Office Workup No CT/MRI - Closed Specialty Diagnoses / Procedures Referred By Contact Refer red To Contact Diagnoses Embolism and thrombosis of unspecified site Ian Kendrick [place] ONC HEM [facility] [address] [address] [place], [place] [address] Referral ID Status Reason Start Date Expiration Date Visits Requ ested Visits Authorized [id number] Closed 12/21/2007 06/22/2011 1 1 Encounter Details Date Type Department Care Team Description 12/21/2007 Telephone [facility] [place] [address] [place] [address]607 [facility] [phone] [facility] [address] (Wo rk) Social History Tobacco [...] you attend religious or Patient refused 2020 mu-ism services? Do [...] ite documented in this encounter Care Teams Diamond Wheel Molder Relationship Specialty Start Date End Date Ian Kendrick MD PCP - General 11/19/07 02/21/14 [facility] [address] [place] [address] documented as of this encounter
--- OUTSIDE RECORDS SUMMARY | 2022-05-15 23:10 | XMS_ITS | Encounter Summary ---
:1955 Author Organization [facility] Address [address] [place] [address] Care Team Providers Name Role Phone Unavailable Primary Care Provider Unavailable Encounter Details Date Type Department Care Team Description 10/23/2007 Orders Only [facility] Ian Kendrick SCREEN ING-DIABETES MELLITUS; Clinic [place] MD Jeremiah SCREENING-LIPOID DISORDERS; [address] [facility] SCREENING MAL NEOP-PROSTATE [place], [place] CLINIC [address] 3850 [facility] [phone] [place] [address] (Wo rk) Social History Tobacco [...] you attend sabianism or Patient refused 2020 mormonism services? Do [...]
--- OUTSIDE RECORDS SUMMARY | 2022-05-15 23:10 | XMS_ITS | Encounter Summary ---
:1955 Author Organization [facility] Address [address] [place] [address] Care Team Providers Name Role Phone Ian Kendrick MD Primary Care Provider [phone] Reason for Visit Reason Comments Anticoagulation Encounter Details Date Type Department Care Team Description 11/27/2007 [facility] Anticoagulation Visit [address] [address] Social History Tobacco Use Types Packs/Day Years Used Date Smoking Tobacco: Former Cigarettes Comments: 2004 Alcohol Use Standard Drinks/Week Comments Yes 0 (1 standard drink = 0.6 oz pure alcoho l) 4 BEERS A WEEK Alcohol Habits Answer Date Recorded How often do you have a drink containing 4 or more times a w [place] 05/25/2021 alcohol? How many drinks containing [...] you attend religious or Patient refused 2020 advent services? 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
--- OUTSIDE RECORDS SUMMARY | 2022-05-15 23:10 | XMS_ITS | Encounter Summary ---
:1955 Author Organization [facility] Address [address] [place] [address] Care Team Providers Name Role Phone Ian Kendrick MD Primary Care Provider [phone] Reason for Visit Reason Comments Anticoagulation Encounter Details Date Type Department Care Team Description 01/04/2008 [facility] Anticoagulation Visit [address] [address] Social History Tobacco Use [...] you attend yazdanism or Patient refused 2020 temple services? 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
--- OUTSIDE RECORDS SUMMARY | 2022-05-15 23:10 | XMS_ITS | Encounter Summary ---
:1955 Author Organization [facility] Address [address] [place] [address] Care Team Providers Name Role Phone Ian Kendrick MD Primary Care Provider [phone] Encounter Details Date Type Department Care Team Description 09/09/2007 Orders Only [facility] Ian Kendrick DIAGNO SIS NOT YET Clinic Alexand[place]andee Daniels MD DEFINED (Primary Dx) [address] [facility] [address] 30[address] [facility] [phone] [place] [address] (Wo rk) Social History Tobacco [...] you attend episcopalian or Patient refused 2020 restoration services? Do [...] Primary documented in this encounter Care Teams Transport Conductor Relationship Specialty Start Date End Date Ian Kendrick MD PCP - General 11/19/07 02/21/14 [place] [address] [place] [address] documented as of this encounter
--- OUTSIDE RECORDS SUMMARY | 2022-05-15 23:10 | XMS_ITS | Encounter Summary ---
:1955 Author Organization [place] Address [address] [place] [address] Care Team Providers Name Role Phone Ian Kendrick MD Primary Care Provider [phone] Encounter Details Date Type Department Care Team Description 12/21/2007 Results Only [facility] [place] [address] [place] [address]34 [facility] [phone] [facility] N [address] (Wo rk) Social History [...] you attend methodist or Patient refused 2020 confucianism services? Do [...] Procedure Name Priority Date/Time Associated Diagnosis Comme [facility] ZZ RT DUPLEX Routine 12/21/2007 2:26 PM [...] in February 2007. ??Read and call to . FINDINGS: DVT involving the superficial femoral vein to the right leg. Remainder of the deep venous system is p atent. Ian Kendrick MD SPECIAL IMAGING STUDIES documented in this encounter Visit Diagnoses Not on filedocumented in this encounter Care Teams Manager Care Management Relationship Specialty Start Date End Date Ian Kendrick MD PCP - General 11/19/07 02/21/[address] [address] documented as of this encounter
--- OUTSIDE RECORDS SUMMARY | 2022-05-15 23:10 | XMS_ITS | Encounter Summary ---
:1955 Author Organization [place] Address [address] [place] [address] Care Team Providers Name Role Phone Ian Kendrick MD Primary Care Provider [phone] Reason for Visit Reason Onset Date Comments Refill Request 12/21/2007 warfarin Encounter Details Date Type Department Care Team Description 12/21/2007 Refill [facility] Ian Kendrick Refill Request [facility] MD Jeremiah (warfarin ) [address] [place] [address] [place] [address] [facility] [phone] [place] [address] (Wo rk) Social History [...] you attend buddhist or Patient refused 2020 sikhism services? Do [...] ite documented in this encounter Care Teams Non Emergency Services Ambulance Driver Relationship Specialty Start Date End Date Ian Kendrick MD PCP - General 11/19/07 02/21/14 [place] [address] [place] [address] documented as of this encounter
--- OUTSIDE RECORDS SUMMARY | 2022-05-15 23:10 | XMS_ITS | Encounter Summary ---
:1955 Author Organization [place] Address [address] [place] [address] Care Team Providers Name Role Phone Ian Kendrick MD Primary Care Provider [phone] Encounter Details Date Type Department Care Team Description 09/14/2007 Orders Only [facility] Ian Kendrick DIAGNO SIS NOT YET Clinic [place] Daniels MD DEFINED (Primary Dx) [address] [facility] [address] 2517 [facility] [phone] [place] [address] (Wo rk) Social History Tobacco [...] you attend sabianism or Patient refused 2020 taoist services? Do [...] Primary documented in this encounter Care Teams Project Management Analyst Relationship Specialty Start Date End Date Ian Kendrick MD PCP - General 11/19/07 02/21/14 [place] [address] [place] [address] documented as of this encounter
--- OUTSIDE RECORDS SUMMARY | 2022-05-15 23:10 | XMS_ITS | Encounter Summary ---
:1955 Author Organization [place] Address [address] [place] [address] Care Team Providers Name Role Phone Rad Carolina MD Primary Care Provider [phone] Reason for Visit Reason Comments Anticoagulation Encounter Details Date Type Department Care Team Description 12/21/2007 Office Visit [facility] Rad Carolina VENOUS THROMBOSIS NOS (Primary Dx); Clinic [place] Daniels MD Encounter for Long-Term (Current) Use of Anticoagulants [address] [facility] [address] 7495 [facility] [phone] [place] [address] Social History Tobacco Use Types Packs/Day Years [...] you attend sabianism or Patient refused 2020 methodist services? Do [...] history, are all reviewed and updated in [facility]. Current Outpatient Rx Name Route Sig [...] Embolism and thrombosis of unspecified s ite [facility] (current) use of anticoagulant s Long-term (current) use of anticoagulant s documented in this encounter Care Teams Machinist Brake Relationship Specialty Start Date End Date Rad Carolina MD PCP - General 11/19/07 02/21/14 [facility] 4010 [place] [address] documented as of this encounter
--- OUTSIDE RECORDS SUMMARY | 2022-05-15 23:10 | XMS_ITS | Encounter Summary ---
:[address] Address [address] [place] [address] Care Team Providers Name Role Phone Rad Carolina MD Primary Care Provider [phone] Reason for Visit Reason Comments RECHECK DVT right leg. lots of swell ing Anticoagulation Encounter Details Date Type Department Care Team Description 11/20/2007 Office Visit [facility] Rad Carolina Edema Leg (Primary Dx); Clinic Chhaya Daniels MD Encounter for Long-Term (Current) Use of Anticoagulants; [address] [facility] ULCERATIVE COLITIS NOS; [place], [place] CLINIC [place] [address] [address] [phone] [place] [address] (Wo rk) Social History Tobacco [...] colitis - he saw Dr. Westbrook from [facility] yesterday. Had dilatation of a stricture which has helped significantly. Still having problems with diarrhea and hemorrhoids. He plans to follow up with Dr. Westbrook. Problems list, allergies, social and family history, and past medical history, are all reviewed and updated in [facility]. Current Outpatient Rx Name Route Sig [...] completed using cuff size: large Marco Pak INSTRUCTIONAL COORDINATOR documented in this encounter Plan of [...] Diagnoses Diagnosis Edema leg - Primary Edema prison (current) use of anticoagulant s Long-term (current) use of anticoagulant s ULCERATIVE COLITIS NOS Ulcerative colitis, unspecified Tick bite Other, multiple, and unspecified sites, insect bite, nonvenomous, without mention of infection documented in this encounter Care Teams Piano Refinisher Relationship Specialty Start Date End Date Rad Carolina MD PCP - General 11/19/07 02/21/14 [place] [address] [place] [address] documented as of this encounter
--- OUTSIDE RECORDS SUMMARY | 2022-05-15 23:10 | XMS_ITS | Encounter Summary ---
:1955 Author Organization [place] Address [address] [place] [address] Care Team Providers Name Role Phone Unavailable Primary Care Provider Unavailable Reason for Visit Reason Onset Date Comments Refill Request 11/03/2007 coumadin Encounter Details Date Type Department Care Team Description 11/03/2007 Refill [facility] Ian Kendrick Refill Request Clinic Weston MD Jeremiah (coumadin) [address] [place], [place] 3850 [facility] [address] [facility] [phone] [place] [address] (Wo rk) Social History Tobacco [...] you attend lutheran or Patient refused 2020 sabianist services? Do [...]
--- OUTSIDE RECORDS SUMMARY | 2022-05-15 23:10 | XMS_ITS | Encounter Summary ---
:1955 Author Organization [place] Address [address] [place] [address] Care Team Providers Name Role Phone Unavailable Primary Care Provider Unavailable Encounter Details Date Type Department Care Team Description 10/27/2007 Orders Only [facility] SCR EENING-LIPOID DISORDERS; [facility] SCREENING-DIABETES MELLITUS; [address] [facility] SCREENING MAL NEOP-PROSTATE; [place] [address] VENOUS THROMBOSIS NOS [phone] Social History Tobacco Use Types Packs/Day Years [...] you attend rastafari or Patient refused 2020 restoration services? Do [...] Signature INR 1.30 (H) 0.86 - 1.14 [facility] Specimen Anatomical Collection Method Collection Time Receive d Time (Source) Location / / Volume Laterality 10/27/2007 11:50 10/27/2007 AM CDT 11:51 AM CDT Ian Kendrick MD LABORATORY Performing Organization Address City/State/ZIP Code Phon e Number [facility] [address] [place] [address] [facility] PROSTATE SPEC ANTIGEN,SCREEN (10/27/2007 10:02 AM CDT) athologist Signature PSA 0.33 0 - 4 ug/L [facility] Specimen Anatomical Collection Method Collection Time Receive d Time (Source) Location / / Volume Laterality 10/27/2007 10:02 10/27/2007 AM CDT 10:03 AM CDT Ian Kendrick MD LABORATORY Performing Organization Address City/State/ZIP Code Phon e Number [facility] [address] [place] [address] [facility] GLUCOSE (10/27/2007 10:02 AM CDT) athologist Signature Glucose 94 60 - 99 [place] [facility] mg/dL [facility] Specimen Anatomical Collection Method Collection Time Receive d Time (Source) Location / / Volume Laterality 10/27/2007 10:02 10/27/2007 AM CDT 10:03 AM CDT Ian Kendrick MD LABORATORY Performing Organization Address City/[facility]/ZIP Code Phon e Number [facility] 1440 [place] [address] [phone] [facility] ALANINE AMINO (ALT) (SGPT) (10/27/2007 10:02 AM CDT) athologist Signature ALT 24 0 - 70 U/L [facility] Specimen Anatomical Collection Method Collection Time Receive d Time (Source) Location / / Volume Laterality 10/27/2007 10:02 10/27/2007 AM CDT 10:03 AM CDT Ian Kendrick MD LABORATORY Performing Organization Address [facility]/ZIP Code Phon e Number [facility] [address] [place] [address] [phone] [facility] (ABNORMAL) A.M.A. LIPID PANEL (10/27/2007 10:02 AM CDT) athologist Signature Cholesterol 176 0 - 200 [facility] mg/dL CLINIC LAB Comment: LDL Cholesterol [...] mg/dL. Triglycerides 107 0 - 150 mg/dL [facility] HDL Cholesterol 37 (L) 40 - 110 mg/dL [facility] LDL Cholesterol Calculated 118 0 - 129 mg/dL [facility] Comment: LDL Cholesterol is the primary guide to therapy: LDL-cholesterol goal in high risk patients is <100 mg/dL and in very high risk patients is <70 mg/dL. VLDL-Cholesterol 21 0 - 30 mg/dL [facility] Cholesterol/HDL Ratio 4.8 0.0 - 5.0 [facility] Specimen Anatomical Collection Method Collection Time Receive d Time (Source) Location / / Volume Laterality 10/27/2007 10:02 10/27/2007 AM CDT 10:03 AM CDT Ian Kendrick MD LABORATORY Performing Organization Address City/State/ZIP Code Phon e Number [address] [address] [facility] documented in this encounter Visit Diagnoses Diagnosis Screening for lipoid disorders Screening for diabetes mellitus Special screening for malignant neoplasm of prostate Embolism and thrombosis of unspecified s ite documented in this encounter
--- OUTSIDE RECORDS SUMMARY | 2022-05-15 23:10 | XMS_ITS | Encounter Summary ---
:1955 Author Organization [place] Address [address] [place] [address] Care Team Providers Name Role Phone Ian Kendrick MD Primary Care Provider [phone] Encounter Details Date Type Department Care Team Description 05/01/2007 Orders Only [facility] Ian Kendrick DIAGNO SIS NOT YET Clinic [place] Daniels MD DEFINED (Primary Dx) [address] [facility] [phone] 1494 [facility] [phone] [place] [address] (Wo rk) Social History Tobacco [...] Procedure Name Priority Date/Time Associated Diagnosis Comme [facility] RT DUPLEX EXTREM Routine 05/01/2007 DIAGNOSIS NOT [...] Primary documented in this encounter Care Teams Paper Cone Machine Operator Relationship Specialty Start Date End Date Ian Kendrick MD PCP - General 11/19/07 02/21/[address] [address] documented as of this encounter
--- OUTSIDE RECORDS SUMMARY | 2022-05-15 23:10 | XMS_ITS | Encounter Summary ---
:1955 Author Organization [place] Address [address] [place] [address] Care Team Providers Name Role Phone Ian Kendrick MD Primary Care Provider [phone] Encounter Details Date Type Department Care Team Description 08/07/2007 Orders Only [facility] Ian Kendrick DIAGNO SIS NOT YET Clinic [place] Daniels MD DEFINED (Primary Dx) [address] [facility] [address] 3757 [facility] [phone] [place] [address] (Wo rk) Social History Tobacco [...] you attend tenriism or Patient refused 2020 yarsani services? Do [...] Procedure Name Priority Date/Time Associated Diagnosis Comme [facility] VENOUS THROMBOSIS IMAGING Routine 08/07/2007 DIAGNOSIS [...] Primary documented in this encounter Care Teams Differential Tester Relationship Specialty Start Date End Date Ian Kendrick MD PCP - General 11/19/07 02/21/14 [place] [address] [place] [address] documented as of this encounter
--- OUTSIDE RECORDS SUMMARY | 2022-05-15 23:10 | XMS_ITS | Encounter Summary ---
:1955 Author Organization [place] Address [address] [place] [address] Care Team Providers Name Role Phone Unavailable Primary Care Provider Unavailable Reason for Visit Reason Onset Date Comments Refill Request 10/27/2007 something for hemorr hoids Encounter Details Date Type Department Care Team Description 10/27/2007 Refill [facility] Ian Kendrick Refill Request Clinic [place]haya Daniels [place] ([place] [address] [facility] CLINIC hemorrhoids) [place], [place] 38[address] [facility] [address] [address] [phone] [place] [address] (Wo rk) Social History Tobacco [...] you attend adventist or Patient refused 2020 oriental orthodox services? [...] found his hemorrhoid cream from his old [facility]. He will use that for the time being. Also encouraged Sitz baths. MARISSA LEVY called him, but he misunderstood and so did not schedule an appointment. He will now call them to get an appointment. He will also get the contact info for Dr. Westbrook and let us know - we can then set up a referral to [facility] Telephone Encounter - Yulisa Acosta - 10/27/2007 10:09 AM CDT To my knowledge OTC meds are preferred, please advise. Nadiya Acosta RN Telephone Encounter - Nay Bella - 10/27/2007 10:03 AM CDT Patient stopped in today for lab appointment. He says he's got hemorrhoids since having the surgery.He'd like something faxed into [facility] down the road here in [place]. 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
--- OUTSIDE RECORDS SUMMARY | 2022-05-15 23:10 | XMS_ITS | Encounter Summary ---
:1955 Author Organization [place] Address [address] [place] [address] Care Team Providers Name Role Phone Unavailable Primary Care Provider Unavailable Reason for Visit Reason Comments Anticoagulation Encounter Details Date Type Department Care Team Description 11/13/2007 [facility] Anticoagulation Visit [address] [address] Social History Tobacco Use [...] you attend mormon or Patient refused 2020 evangelical services? 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
--- OUTSIDE RECORDS SUMMARY | 2022-05-15 23:10 | XMS_ITS | Encounter Summary ---
:1955 Author Organization [place] Address [address] [place] [address] Care Team Providers Name Role Phone Ian Kendrick MD Primary Care Provider [phone] Froylan Louise MD Primary Care Provider Unavailable Froylan Louise MD Unavailable Unavailable Froylan Louise MD Unavailable Unavailable Esthela Corea RN Unavailable Unavailable So Dodd MD Primary Care Provider Froylan Louise MD Primary Care Provider Unavailable So Dodd MD Unavailable So Dodd MD Primary Care Provider Encounter Details Date Type Department Care Team Description 09/09/2007 [facility] [place] [address] [place] [address] [address] [facility] [phone] [facility] [id number] (Wo rk) Social History Tobacco Use Types [...] you attend bahai or Patient refused 2020 caodaism services? Do [...] documented as of this encounter Care Teams Senior Loan Officer Relationship Specialty Start Date End Date Ian Kendrick PCP - General 11/19/07 02/21/14 MD Jeremiah [facility] 3850 [place] [address] Froylan Louise MD PCP - General Family Practice 02/22/14 Froylan Louise MD PCP - Assigned PCP 03/13/14 08/25/18 So Dodd MD PCP - General Family Medicine 01/10/22 01/17/22 [address] [place] [address] Froylan Louise MD PCP - General Family Medicine 01/18/22 So Dodd MD PCP - General Family Medicine 02/21/22 [address] [place] [address] Froylan Louise MD Assigned PCP 03/13/14 2 Esthela Corea RN Personal Advocate & Family Medicine 10/16/20 Liaison (PAL) So Dodd MD Assigned PCP 01/05/22 [address] [place] [address] documented as of this encounter
--- OUTSIDE RECORDS SUMMARY | 2022-05-15 23:10 | XMS_ITS | Encounter Summary ---
:1955 Author Organization [place] Address [address] [place] [address] Care Team Providers Name Role Phone Ian Kendrick MD Primary Care Provider [phone] Reason for Visit Reason Comments Anticoagulation Encounter Details Date Type Department Care Team Description 12/21/2007 [facility] Anticoagulation Visit [address] [address] Social History Tobacco Use [...] you attend religion or Patient refused 2020 sabianism services? 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
--- OUTSIDE RECORDS SUMMARY | 2022-05-15 23:10 | XMS_ITS | Encounter Summary ---
:1955 Author Organization [place] Address [address] [place] [address] Care Team Providers Name Role Phone Unavailable Primary Care Provider Unavailable Reason for Visit Reason Comments Anticoagulation first ACC visit Encounter Details Date Type Department Care Team Description 11/03/2007 Orders Only [facility] Emb olism and Thrombosis of Unspecified Site; [facility] Encounter for Long-Term (Cur rent) Use of Anticoagulants [address] [place] [address] Social History Tobacco Use [...] you attend sabianism or Patient refused 2020 amish services? Do [...] Ian Kendrick MD LABORATORY Performing Organization Address City/[facility]/ZIP Code Phon e Number [facility] (ABNORMAL) PROTHROMBIN TIME (11/03/2007 10:03 AM CDT) P athologist Signature INR 1.80 (H) 0.86 - 1.14 [facility] Specimen Anatomical Collection Method Collection Time Receive d Time (Source) Location / / Volume Laterality 11/03/2007 10:03 11/03/2007 AM CDT 10:04 AM CDT Ian Kendrick MD LABORATORY Performing Organization Address [facility]/ZIP Code Phon e Number [facility] [address] [place] [address] [facility] documented in this encounter Visit Diagnoses Diagnosis Embolism and thrombosis of unspecified s ite 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
--- OUTSIDE RECORDS SUMMARY | 2022-05-15 23:10 | XMS_ITS | Encounter Summary ---
:1955 Author Organization [place] Address [address] [place] [address] Care Team Providers Name Role Phone Ian Kendrick MD Primary Care Provider [phone] Reason for Visit Reason Onset Date Comments Refill Request 12/08/2007 james nelson Encounter Details Date Type Department Care Team Description 12/08/2007 Refill [facility] Ian Kendrick Refill Request (qvar [facility] MD leslie Daniels) [address] [place], [place] 3850 [facility] [address] [facility] [phone] [place] [address] (Wo rk) Social History Tobacco [...] you attend mandaeism or Patient refused 2020 hoahaoism services? Do [...] 7 Atrovent. Virgil can be reached at [phone]. DL 6-17@1:00pm documented in this encounter Plan of Treatment Upcoming Encounters Date Type Specialty Care Team Description 05/20/2022 Lab Lab documented as of this encounter Visit Diagnoses Diagnosis Other dyspnea and respiratory abnormalit y - Primary ULCERATIVE COLITIS NOS Ulcerative colitis, unspecified Anxiety Anxiety state, unspecified documented in this encounter Care Teams Handbag Framer Relationship Specialty Start Date End Date Ian Kendrick MD PCP - General 11/19/07 02/21/14 [facility] [address] [place] [address] documented as of this encounter
--- OUTSIDE RECORDS SUMMARY | 2022-05-15 23:10 | XMS_ITS | Encounter Summary ---
:1955 Author Organization [place] Address [address] [place] [address] Care Team Providers Name Role Phone Ian Kendrick MD Primary Care Provider [phone] Encounter Details Date Type Department Care Team Description 07/16/2007 Orders Only [facility] Ian Kendrick DIAGNO SIS NOT YET Clinic [place]ee Daniels MD DEFINED (Primary Dx) [address] [facility] [address] 2233 [facility] [phone] [place] [address] (Wo rk) Social History Tobacco [...] you attend adventism or Patient refused 2020 yarsani services? Do [...] Primary documented in this encounter Care Teams Auth Specialist Relationship Specialty Start Date End Date Ian Kendrick MD PCP - General 11/19/07 02/21/14 [facility] 3850 [place] [address] documented as of this encounter
--- OUTSIDE RECORDS SUMMARY | 2022-05-15 23:11 | XMS_ITS | Encounter Summary ---
:1955 Author Organization [place] Address [address] [place] [address] Care Team Providers Name Role Phone Unavailable Primary Care Provider Unavailable Encounter Details Date Type Department Care Team Description 12/22/2006 Emergency room Jose Miller Ma, MD EMERGENCY PHYSIC [facility] 73[address] [facility] S [address] [place], [place] [address] (Wo rk) Social History Tobacco Use Types [...] you attend hinduism or Patient refused 2020 mandaen services? Do [...] be seen. 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 PAST MEDICAL HISTORY: Ulcerative colitis. MEDICATIONS: Prednisone 10 mg, Nexium, paroxetine, he gets Remicade infusions and he is on Colazal,Singulair, Lasix, Atrovent, beclomethasone and K-Dur. ALLERGIES: None. REVIEW OF SYSTEMS: All systems negative except as stated above. SOCIAL HISTORY: He is from [place] as stated above. PHYSICAL EXAMINATION: VITAL SIGNS: [...] MD MT: [id number] Name: ANITA CHRISTINE Account: [id number] : 1955 Visit Date: 12/22/2006 Document: [id number] documented in this encounter Plan of Treatment Upcoming Encounters Date Type Specialty Care Team Description 05/20/2022 Lab Lab documented as of this encounter Visit Diagnoses Not on filedocumented in this encounter
--- OUTSIDE RECORDS SUMMARY | 2022-05-15 23:11 | XMS_ITS | Encounter Summary ---
:1955 Author Organization [place] Address [address] [place] [address] Care Team Providers Name Role Phone Ian Kendrick MD Primary Care Provider [phone] Froylan Louise MD Primary Care Provider Unavailable Froylan Louise MD Unavailable Unavailable rFoylan Louise MD Unavailable Unavailable Esthela Corea RN Unavailable Unavailable So Dodd MD Primary Care Provider Froylan Louise MD Primary Care Provider Unavailable So Dodd MD Unavailable So Dodd MD Primary Care Provider Encounter Details Date Type Department Care Team Description 09/28/2006 [facility] Ian Kendrick, DISCHARGE Chhaya VILLASEÑOR [address] [place] [address] 9628 [facility] [phone] [facility] [address] (Wo rk) Social History Tobacco [...] you attend denominational or Patient refused 2020 mormon services? Do you belong to any clubs or Yes 05/25/2021 organizations such as denominational groups, unions, fraAmity Manufacturing or athletic groups, or school groups? How [...] documented as of this encounter Care Teams Gunner'S Mate G Relationship Specialty Start Date End Date Ian Kendrick PCP - General 11/19/07 02/21/14 MD Jeremiah [facility] 38[address] [place] [address] Froylan Louise MD PCP - General Family Practice 02/22/14 Froylan Louise MD PCP - Assigned PCP 03/13/14 08/25/18 So Dodd MD PCP - General Family Medicine 01/10/22 01/17/22 [address] [place] [address] Froylan Louise MD PCP - General Family Medicine 01/18/22 So Dodd MD PCP - General Family Medicine 02/21/22 [address] [place], [place] 406[address] Froylan Louise MD Assigned PCP 03/13/14 2 Esthela Corea RN Personal Advocate & Family Medicine 10/16/20 Liaison (PAL) So Dodd MD Assigned PCP 01/05/22 [address] [place] [address] documented as of this encounter
--- OUTSIDE RECORDS SUMMARY | 2022-05-15 23:11 | XMS_ITS | Encounter Summary ---
:1955 Author Organization [place] Address [address] [place] [address]65 Care Team Providers Name Role Phone Ian Kendrick MD Primary Care Provider [phone] Reason for Referral Specialty Diagnoses / Procedures Referred By Contact Refer red To Contact Ian Kendrick And MD rufus [facility] [address] [place], [place] [address] Referral ID Status Reason Start Date Expiration Date Visits Requ ested Visits Authorized Encounter Details Date Type Department Care Team Description 08/02/2005 Orders Only [facility] Ian Kendrick DIAGNO SIS NOT YET Clinic Chhaya Daniels MD DEFINED (Primary Dx) [address] [place], [place] CLINIC [address] [facility]9 [facility] [phone] [place] [address] (Wo rk) Social History Tobacco [...] you attend anabaptism or Patient refused 2020 adventist services? Do [...] Primary documented in this encounter Care Teams Raimann Machine Operator Relationship Specialty Start Date End Date Ian Kendrick MD PCP - General 11/19/07 02/21/14 [place] [address] [place] [address] documented as of this encounter
--- OUTSIDE RECORDS SUMMARY | 2022-05-15 23:11 | XMS_ITS | Encounter Summary ---
:1955 Author Organization [place] Address [address] [place] [address] Care Team Providers Name Role Phone Ian Kendrick MD Primary Care Provider [phone] Froylan Louise MD Primary Care Provider Unavailable Froylan Louise MD Unavailable Unavailable Froylan Louise MD Unavailable Unavailable Esthela Corea RN Unavailable Unavailable So Dodd MD Primary Care Provider Froylan Louise MD Primary Care Provider Unavailable So Dodd MD Unavailable So Dodd MD Primary Care Provider Encounter Details Date Type Department Care Team Description 09/19/2006 [facility] [place] [address] [place] [address] 9121 [facility] [phone] [facility] [address] (Wo rk) Social History Tobacco [...] or more times a w [place] 05/25/2021 alcohol? How many drinks containing alcohol [...] you attend latter-day or Patient refused 2020 mormonism services? Do you belong to any clubs or Yes 05/25/2021 organizations such as latter-day groups, unions, fraTalaentia or athletic groups, or school groups? How [...] as of this encounter Care Teams Kiln Tender Relationship Specialty Start Date End Date Ian Kendrick PCP - General 11/19/07 02/21/14 MD Jeremiah [facility] [address] [place] [address] Froylan Louise MD PCP - General Family Practice 02/22/14 Froylan Louise MD PCP - Assigned PCP 03/13/14 08/25/18 So Dodd MD PCP - General Family Medicine 01/10/22 01/17/22 [address] [place] [address] Froylan Louise MD PCP - General Family Medicine 01/18/22 So Dodd MD PCP - General Family Medicine 02/21/22 [address] [place], [place] [id number] Froylan Louise MD Assigned PCP 03/13/14 2 Esthela Corea RN Personal Advocate & Family Medicine 10/16/20 Liaison (PAL) So Dodd MD Assigned PCP 01/05/22 [address] [place] [address] documented as of this encounter
--- OUTSIDE RECORDS SUMMARY | 2022-05-15 23:11 | XMS_ITS | Encounter Summary ---
:1955 Author Organization [place] Address [address] [place] [address] Care Team Providers Name Role Phone Ian Kendrick MD Primary Care Provider [phone] Encounter Details Date Type Department Care Team Description 11/28/2006 Orders Only [facility] Ian Kendrick DIAGNO SIS NOT YET Clinic [place] MD DEFINED (Primary Dx) 12327 [facility] [address] 1952 [facility] [phone] [place] [address] (Wo rk) Social History Tobacco [...] you attend mormon or Patient refused 2020 spiritism services? Do [...] attachment that is no t available. Ian Knedrick MD LABORATORY documented in this encounter Visit Diagnoses Diagnosis DIAGNOSIS NOT YET DEFINED - Primary documented in this encounter Care Teams Head Teller Relationship Specialty Start Date End Date Ian Kendrick MD PCP - General 11/19/07 02/21/14 [place] [address] [place] [address] documented as of this encounter
--- OUTSIDE RECORDS SUMMARY | 2022-05-15 23:11 | XMS_ITS | Encounter Summary ---
:1955 Author Organization [place] Address [address] [place] [address] Care Team Providers Name Role Phone Ian Kendrick MD Primary Care Provider [phone] Reason for Referral Specialty Diagnoses / Procedures Referred By Contact Refer red To Contact Ian Kendrick And MD rufus [facility] 9707 [place], [place] [address] Referral ID Status Reason Start Date Expiration Date Visits Requ ested Visits Authorized Encounter Details Date Type Department Care Team Description 07/24/2005 Orders Only [facility] Ian Kendrick DIAGNO SIS NOT YET Clinic Chhaya Daniels MD DEFINED (Primary Dx) [address] [place], [place] CLINIC [address] [facility]7 [facility] [phone] [place] [address] (Wo rk) Social History Tobacco [...] attend jehovah's witness or Patient refused 2020 mormon services? Do [...] Primary documented in this encounter Care Teams Technology Training Associate Relationship Specialty Start Date End Date Ian Kendrick MD PCP - General 11/19/07 02/21/14 [place] [address] [place] [address] documented as of this encounter
--- OUTSIDE RECORDS SUMMARY | 2022-05-15 23:11 | XMS_ITS | Encounter Summary ---
:1955 Author Organization [place] Address [address] [place] [address] Care Team Providers Name Role Phone aIn Kendrick MD Primary Care Provider [phone] Encounter Details Date Type Department Care Team Description 10/12/2006 Orders Only [facility] Ian Kendrick DIAGNO SIS NOT YET Clinic [place] MD DEFINED (Primary Dx) [address] [facility] [address] 7155 [facility] [phone] [place] [address] (Wo rk) Social History [...] you attend catholic or Patient refused 2020 pentecostal services? [...] Primary documented in this encounter Care Teams Arresting Gear Operator Relationship Specialty Start Date End Date Ian Kendrick MD PCP - General 11/19/07 02/21/14 [place] [address] [place] [address] documented as of this encounter
--- OUTSIDE RECORDS SUMMARY | 2022-05-15 23:11 | XMS_ITS | Encounter Summary ---
:1955 Author Organization [place] Address [address] [place] [address] Care Team Providers Name Role Phone Ian Kendrick MD Primary Care Provider [phone] Encounter Details Date Type Department Care Team Description 11/28/2006 Orders Only [facility] Ian Kendrick DIAGNO SIS NOT YET Clinic [place] Daniels MD DEFINED (Primary Dx) [address] [facility] [address] 1191 [facility] [phone] [place] [address] (Wo rk) Social History Tobacco [...] you attend buddhist or Patient refused 2020 moravian services? Do [...] Volume 11/28/2006 Ian Kendrick MD LABORATORY SCANNED [facility]. LAB RESULTS (11/28/2006) Specimen (Source) Anatomical Location Collection Method / Collectio n Time Received Time / Laterality Volume 11/28/2006 Narrative This result has an attachment that is no t available. Ian Kendrick MD LABORATORY documented in this encounter Visit Diagnoses Diagnosis DIAGNOSIS NOT YET DEFINED - Primary documented in this encounter Care Teams Establishment Guide Relationship Specialty Start Date End Date Ian Kendrick MD PCP - General 11/19/07 02/21/14 [facility] [address] [place] [address] documented as of this encounter
--- OUTSIDE RECORDS SUMMARY | 2022-05-15 23:11 | XMS_ITS | Encounter Summary ---
:1955 Author Organization [place] Address [address] [place] [address] Care Team Providers Name Role Phone Ian Kendrick MD Primary Care Provider [phone] Encounter Details Date Type Department Care Team Description 11/28/[address] [facility] Ian Kendrick DIAGNO SIS NOT YET Clinic [place] MD DEFINED (Primary Dx) [address] [facility] [address] 5344 [facility] [phone] [place] [address] (Wo rk) Social History Tobacco [...] you attend faith or Patient refused 2020 gnosticism services? Do [...] Primary documented in this encounter Care Teams Catheter Finisher And Inspector Relationship Specialty Start Date End Date Ian Kendrick MD PCP - General 11/19/07 02/21/[address] [address] documented as of this encounter
--- OUTSIDE RECORDS SUMMARY | 2022-05-15 23:11 | XMS_ITS | Encounter Summary ---
:1955 Author Organization [place] Address [address] [place] [address] Care Team Providers Name Role Phone Ian Kendrick MD Primary Care Provider [phone] Encounter Details Date Type Department Care Team Description 06/15/2005 Orders Only [facility] Ian Kendrick DIAGNO SIS NOT YET Clinic [place] MD DEFINED (Primary Dx) [address] [facility] [address] 1074 [facility] [phone] [place] [address] (Wo rk) Social History [...] you attend caodaism or Patient refused 2020 jew services? Do [...] Primary documented in this encounter Care Teams Director Compliance Relationship Specialty Start Date End Date Ian Kendrick MD PCP - General 11/19/07 02/21/14 [place] [address] [place] [address] documented as of this encounter
--- OUTSIDE RECORDS SUMMARY | 2022-05-15 23:11 | XMS_ITS | Encounter Summary ---
:1955 Author Organization [place] Address [address] [place] [address] Care Team Providers Name Role Phone Ian Kendrick MD Primary Care Provider [phone] Encounter Details Date Type Department Care Team Description 11/28/2006 Orders Only [facility] Ian Kendrick DIAGNO SIS NOT YET Clinic [place] MD DEFINED (Primary Dx) [address] [facility] [address] 2040 [facility] [phone] [place] [address] (Wo rk) Social History Tobacco Use Types Packs/Day Years Used Date Smoking Tobacco: Never Assessed Alcohol Habits Answer Date Recorded How often do you have a drink containing 4 or more times a w [place] 05/25/2021 alcohol? How many drinks containing alcohol [...] you attend cheondoism or Patient refused 2020 yarsanism services? Do [...] Photographer Relationship Specialty Start Date End Date Ian Kendrick MD PCP - General 11/19/07 02/21/14 [place] [address] [address] [place] [address] documented as of this encounter
--- OUTSIDE RECORDS SUMMARY | 2022-05-15 23:11 | XMS_ITS | Encounter Summary ---
:1955 Author Organization [place] Address [address] [place] [address] Care Team Providers Name Role Phone Ian Kendrick MD Primary Care Provider [phone] Encounter Details Date Type Department Care Team Description 03/06/2007 Orders Only [facility] Ian Kendrick DIAGNO SIS NOT YET Clinic [place] Daniels MD DEFINED (Primary Dx) [address] [facility] [address] 7708 [facility] [phone] [place] [address] (Wo rk) Social History Tobacco [...] you attend baptist or Patient refused 2020 bahai services? Do [...] Primary documented in this encounter Care Teams Ship Surveyor Relationship Specialty Start Date End Date Ian Kendrick MD PCP - General 11/19/07 02/21/14 [place] [address] [place] [address] documented as of this encounter
--- OUTSIDE RECORDS SUMMARY | 2022-05-15 23:11 | XMS_ITS | Encounter Summary ---
:1955 Author Organization Only Address [address] [place] [address] Care Team Providers Name Role Phone Ian Kendrick MD Primary Care Provider [phone] Froylan Louise MD Primary Care Provider Unavailable Froylan Louise MD Unavailable Unavailable Froylan Louise MD Unavailable Unavailable Esthela Corea RN Unavailable Unavailable So Dodd MD Primary Care Provider Froylan Louise MD Primary Care Provider Unavailable So Dodd MD Unavailable So Dodd MD Primary Care Provider Encounter Details Date Type Department Care Team Description 03/24/2007 [facility] Ian Kendrick [id number] [facility] MD Jeremiah DISCHARGE [address] [place], [place] 3850 [facility] [address] [facility] [phone] [place] [address] (Wo rk) Social History Tobacco [...] you attend anglican or Patient refused 2020 muslim services? Do [...] documented as of this encounter Care Teams Talent Acquisition Administrator Relationship Specialty Start Date End Date Ian Kendrick PCP - General 11/19/07 02/21/14 MD Jeremiah [facility] 3850 [place] [address] Froylan Louise MD PCP - General Family Practice 02/22/14 Froylan Louise MD PCP - Assigned PCP 03/13/14 08/25/18 So Dodd MD PCP - General Family Medicine 01/10/22 01/17/22 [address] [place] [address] Froylan Louise MD PCP - General Family Medicine 01/18/22 So Dodd MD PCP - General Family Medicine 02/21/22 [address] [place] [address] Froylan Louise MD Assigned PCP 03/13/14 2 Esthela Corea RN Personal Advocate & Family Medicine 10/16/20 Liaison (PAL) So Dodd MD Assigned PCP 01/05/22 [address] [place] [address] documented as of this encounter
--- OUTSIDE RECORDS SUMMARY | 2022-05-15 23:11 | XMS_ITS | Encounter Summary ---
:1955 Author Organization [place] Address [address] [place] [address] Care Team Providers Name Role Phone Ian Kendrick MD Primary Care Provider [phone] Encounter Details Date Type Department Care Team Description 09/17/2006 Orders Only [facility] Ian Kendrick DIAGNO SIS NOT YET Clinic [place] Daniels MD DEFINED (Primary Dx) [address] [facility] [address] 2431 [facility] [phone] [place] [address] (Wo rk) Social History Tobacco [...] Date/Time Associated Diagnosis Comme nts SCANNED [facility]. LAB RESULTS Routine 09/17/2006 DIAGNOSIS NOT Y [...] in this encounter Care Teams Director Of Primary Care Relationship Specialty Start Date End Date Ian Kendrick MD PCP - General 11/19/07 02/21/14 [place] [address] [place] [address] documented as of this encounter
--- OUTSIDE RECORDS SUMMARY | 2022-05-15 23:11 | XMS_ITS | Encounter Summary ---
:1955 Author Organization [place] Address [address] [place] [address]709 Care Team Providers Name Role Phone Ian Kendrick MD Primary Care Provider [phone] Froylan Louise MD Primary Care Provider Unavailable Froylan Louise MD Unavailable Unavailable Froylan Louise MD Unavailable Unavailable Esthela Corea RN Unavailable Unavailable So Dodd MD Primary Care Provider Froylan Louise MD Primary Care Provider Unavailable So Dodd MD Unavailable So Dodd MD Primary Care Provider Encounter Details Date Type Department Care Team Description 03/06/2007 [facility] [place] [address] [place] [address] 8266 [facility] [phone] [facility] N [id number] (Wo rk) Social History Tobacco Use Types [...] you attend cheondoism or Patient refused 2020 buddhist services? Do [...] documented as of this encounter Care Teams Caseworker Relationship Specialty Start Date End Date Ian Kendrick PCP - General 11/19/07 02/21/14 MD Jeremiah [facility] 3850 [place] [address] Froylan Louise MD PCP - General Family Practice 02/22/14 Froylan Louise MD PCP - Assigned PCP 03/13/14 08/25/18 So Dodd MD PCP - General Family Medicine 01/10/22 01/17/22 [address] [place] [address] Froylan Louise MD PCP - General Family Medicine 01/18/22 So Dodd MD PCP - General Family Medicine 02/21/22 [address] [place] [address] Froylan Louise MD Assigned PCP 03/13/14 2 Esthela Corea RN Personal Advocate & Family Medicine 10/16/20 Liaison (PAL) So Dodd MD Assigned PCP 01/05/22 [address] [place] [address] documented as of this encounter
--- OUTSIDE RECORDS SUMMARY | 2022-05-15 23:11 | XMS_ITS | Encounter Summary ---
:1955 Author Organization [facility] Address [address] [place] [address] Care Team Providers Name Role Phone Ian Kendrick MD Primary Care Provider [phone] Froylan Louise MD Primary Care Provider Unavailable Froylan Louise MD Unavailable Unavailable Froylan Louise MD Unavailable Unavailable Esthela Corea RN Unavailable Unavailable So Dodd MD Primary Care Provider Froylna Louise MD Primary Care Provider Unavailable So Dodd MD Unavailable So Dodd MD Primary Care Provider Encounter Details Date Type Department Care Team Description 10/12/2006 [facility] [place] [address] [place] [address]3 [facility] [phone] [facility] N [id number] (Wo rk) Social History Tobacco Use Types [...] you attend baptist or Patient refused 2020 roman catholic services? [...] documented as of this encounter Care Teams Heading Repairer Relationship Specialty Start Date End Date Ian Kendrick PCP - General 11/19/07 02/21/14 MD Jeremiah [facility] 3850 [place] [address] Froylan Louise MD PCP - General Family Practice 02/22/14 Froylan Louise MD PCP - Assigned PCP 03/13/14 08/25/18 So Dodd MD PCP - General Family Medicine 01/10/22 01/17/22 [address] [place] [address] Froylan Louise MD PCP - General Family Medicine 01/18/22 So Dodd MD PCP - General Family Medicine 02/21/22 [address] [place] [address] Froylan Louise MD Assigned PCP 03/13/14 2 Esthela Corea RN Personal Advocate & Family Medicine 10/16/20 Liaison (PAL) So Ddod MD Assigned PCP 01/05/22 [address] [place] [address] documented as of this encounter
--- OUTSIDE RECORDS SUMMARY | 2022-05-15 23:11 | XMS_ITS | Encounter Summary ---
:1955 Author Organization [place] Address [address] [place] [address] Care Team Providers Name Role Phone Ian Kendrick MD Primary Care Provider [phone] Encounter Details Date Type Department Care Team Description 04/15/2007 Orders Only [facility] Ian Kendrick DIAGNO SIS NOT YET Clinic [place] MD DEFINED (Primary Dx) [address] [facility] [address] 4366 [facility] [phone] [place] [address] (Wo rk) Social History Tobacco [...] you attend shinto or Patient refused 2020 jehovah's witness services? [...] Primary documented in this encounter Care Teams Napper Fixer Relationship Specialty Start Date End Date Ian Kendrick MD PCP - General 11/19/07 02/21/[address] [address] documented as of this encounter
--- OUTSIDE RECORDS SUMMARY | 2022-05-15 23:11 | XMS_ITS | Encounter Summary ---
:1955 Author Organization [place] Address [address] [place] [address]83 Care Team Providers Name Role Phone Ian Kendrick MD Primary Care Provider [phone] Froylan Louise MD Primary Care Provider Unavailable Froylan Louise MD Unavailable Unavailable Froylan Louise MD Unavailable Unavailable Esthela Corea RN Unavailable Unavailable So Dodd MD Primary Care Provider Froylan Louise MD Primary Care Provider Unavailable So Dodd MD Unavailable So Dodd MD Primary Care Provider Encounter Details Date Type Department Care Team Description 03/27/2007 [facility] [place] [address] [place] [address]591 [facility] [phone] [facility] N [id number] (Wo rk) Social History Tobacco Use Types [...] you attend baptism or Patient refused 2020 sabianism services? Do [...] documented as of this encounter Care Teams Normalizer Relationship Specialty Start Date End Date Ian Kendrick PCP - General 11/19/07 02/21/14 MD Jeremiah [facility] 3850 [place] [address] Froylan Louise MD PCP - General Family Practice 02/22/14 Froylan Louise MD PCP - Assigned PCP 03/13/14 08/25/18 So Dodd MD PCP - General Family Medicine 01/10/22 01/17/22 [address] [place] [address] Froylan Louise MD PCP - General Family Medicine 01/18/22 So Dodd MD PCP - General Family Medicine 02/21/22 [address] [place] [address] Froylan Louise MD Assigned PCP 03/13/14 2 Esthela Corea RN Personal Advocate & Family Medicine 10/16/20 Liaison (PAL) So Dodd MD Assigned PCP 01/05/22 [address] [place] [address] documented as of this encounter
--- OUTSIDE RECORDS SUMMARY | 2022-05-15 23:11 | XMS_ITS | Encounter Summary ---
:1955 Author Organization [facility] Address [address] [place] [address] Care Team Providers Name Role Phone Ian Kendrick MD Primary Care Provider [phone] Encounter Details Date Type Department Care Team Description 10/12/2006 Orders Only [facility] Ian Kendrick DIAGNO SIS NOT YET Clinic [place] Daniels MD DEFINED (Primary Dx) [address] [facility] [address] 2848 [facility] [phone] [place] [address] (Wo rk) Social History Tobacco [...] you attend holiness or Patient refused 2020 restorationist services? Do [...] Primary documented in this encounter Care Teams Corpsman Relationship Specialty Start Date End Date Ian Kendrick MD PCP - General 11/19/07 02/21/14 [place] [address] [place] [address] documented as of this encounter
--- OUTSIDE RECORDS SUMMARY | 2022-05-15 23:11 | XMS_ITS | Encounter Summary ---
:1955 Author Organization [place] Address [address] [place] [address] Care Team Providers Name Role Phone Ian Kendrick MD Primary Care Provider [phone] Encounter Details Date Type Department Care Team Description 09/19/2006 Orders Only [facility] Ian Kendrick DIAGNO SIS NOT YET Clinic [place] Daniels MD DEFINED (Primary Dx) [address] [facility] [address] 4759 [facility] [phone] [place] [address] (Wo rk) Social History Tobacco [...] you attend taoism or Patient refused 2020 advent services? Do [...] Primary documented in this encounter Care Teams Viner Operator Relationship Specialty Start Date End Date Ian Kendrick MD PCP - General 11/19/07 02/21/14 [facility] 3850 [place] [address] documented as of this encounter
== END 2022-05-15 23:15 | disposition home or self-care (01) ==
PROVIDERS: Emergency Provider Emergency Medicine Emergency Medical Services
DX: A05.9 Bacterial foodborne intoxication, unspecified (principal)
CPT/HCPCS: 96361; 96374; 96375; 99283; 99284; J1885; J2405; J7030

== ENCOUNTER 2025-03-14 13:40 | Emergency (ER) | payer MEDICARE, SELFPAY ==
--- OUTSIDE RECORDS SUMMARY | 2025-03-14 13:46 | XMS_ITS | Clinical Summary ---
Author Organization [facility] Address [address], [place] [address] Care Team Providers Care Adjuster Piano Action Name Role Phone Unavailable Primary Care Provider Unavailabl e Source Comments You are receiving this document as you are listed as the primary care provider,follow-up provider, or the patient has been referred to you for consultation.This is in compliance with the Medicare andMedicaid EHR Incentive Program,which states Providers who transition their patient to another setting of careor provider of care or refers their patient to another provider of care shouldprovide summary care record for each transition of care or referral. [facility] Allergies No known active allergies Medications ALBUterol sulfate HFA 108 (90 Base) MCG/ACT inhaler 0 Active TREL ELLIPTA 100-62.5-25 MCG/INH AEPB Inhale 1 Puff daily. 0 Active hydroCHLOROthiaz breezy (ORETIC) 12.5 MG tablet Take 12.5 mg by mouth daily. 0 Active FLUCELVAX QUADRIVALENT SUSP PHARMACY ADMINISTERED 0 Active loperamide (IMODIUM) 2 MG capsule 0 Active predniSONE (DELTASONE) 5 MG tablet 1 Active terazosin (HYTRIN) 2 MG capsule TAKE 1 CAPSULE BY MOUTH EVERYDAY AT BEDTIME 0 Active warfarin (COUMADIN) 5 MG tablet TAKE 5 MG (1 TABLET) ON FRIDAY AND 7.5 MG (1 & 1/2 TABLETS) ALL OTHER DAYS OR DIRECTED. 0 Active warfarin (COUMADIN) 7.5 MG tablet TAKE 5MG TABLET ON EVERY FRI AND 7.5MG TABLET ON ALL OTHER DAYS OF THE WEEK. 0 Active zolpidem tartrate (AMBIEN CR) 12.5 MG controlled release tablet Take 12.5 mg by mouth at bedtime as needed. for sleep 0 Active sulfaSALAzine (AZULFIDINE) 500 MG tablet 1 Active predniSONE (DELTASONE) 20 MG tabletIndication s:Acute bilateral low back pain with left-sided sciatica (HRC) Take 2 Tablets by mouth daily. 10 Tablet 1 Active HYDROcodone-acet aminophen (NORCO) 5-325 MG tabletIndication s:Acute bilateral low back pain with left-sided sciatica (HRC) Take 1-2 Tablets by mouth every 6 hours as needed. 10 Tablet 1 Active Hospital, Clinic, or Other Facility Administered Medication Ordered Dose Route Frequency Start Date End Date Status diazePAM (VALIUM) tablet 5 mgIndications:Acute bilateral low back pain with left-sided sciatica (HRC) 5 mg OR PRE-PROCEDURE 06/29/2020 Active Social History Tobacco Use Types Packs/Day Years Used Date Smoking Tobacco: Never Assessed Sex and Gender Information Value Date Recorded Sex Assigned at Not on file Legal Sex Male 12:09 PM CDT Gender Identity Not on file Sexual Orientation Not on file Plan of Treatment Health Maintenance Due Date Last Done Comments Colon Cancer Screening Plan Due 1955 Hep C Screening (Preventive Services) 1955 PSA Screening Discussion 1955 Adult Preventive Visit 12/02/1975 Cholesterol 1992 Zoster/Shingles Vaccine (1 of 2) 12/02/2007 Pneumococcal Vaccine 50+ Yrs (2 of 2 - PCV) 05/26/2021 05/26/2020 DTaP/Tdap/Td Vaccine (2 - Tdap) 07/07/2023 07/07/2013 COVID-19 Vaccine (3 - season) 2025 12/12/2020, 11/10/2020 Influenza Vaccine (#1) 2025 0, 04/09/2019, 03/23/2018, Additional history exists RSV Vaccine (1 - 1-dose 75+ series) 2032 HepA Vaccine Aged Out No longer eligi ble based on patient's age to complete this topic HepB Vaccine Aged Out No longer eligi ble based on patient's age to complete this topic Hib Vaccine Aged Out No longer eligi ble based on patient's age to complete this topic IPV (Polio) Vaccine Aged Out No longe r eligible based on patient's age to complete this topic MCV4 Vaccine Aged Out No longer eligi ble based on patient's age to complete this topic Meningococcal B Vaccine Aged Out No l onger eligible based on patient's age to complete this topic Insurance [employer] [facility]
[2025-03-14 13:48] VITALS: BP 143/80; PULSE 90; RESP 18; TEMP 36.9; O2SAT 95; BMI 37.7
--- NOTE | 2025-03-14 15:04 | ED_ITS ---
HPI - General Adult General Date Seen: 03/14/25 <Jessica Julien MD - Last Filed: 03/18/25 11:29> Chief complaint: Shoulder Injury/Pain <Jessica Julien MD - Last Filed: 03/18/25 11:29> Stated complaint: swollen hands/cant move shoulders <Jessica Julien MD - Last Filed: 03/18/25 11:29> Time Seen by Provider: 03/14/25 14:52 <Jessica Julien MD - Last Filed: 03/18/25 11:29> History of Present Illness HPI narrative: Patient is a 69-year-old who presents for evaluation of joint pains and generalized edema. He notes that a couple of months ago he had an illness with a high fever. He was not seen for that, just toughed it out. The fever resolved. After that however he developed swelling in his legs and hands, and diffuse joint pains. He was seen at that time in the [facility] system. He says they had done some blood work, told him it was not rheumatoid arthritis. He does not believe Lyme test was done. He is not aware of any tick bites and no unusual rashes but [place] and says he is outdoors all the time. 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 Notes a little bit of a headache, he has pain with any movement of his neck including rotation, it is significantly limited secondary to pain. He is not able to use his shoulders very much due to severely reduced range of motion. He has swelling in both hands and pain in all of his hand joints. His legs are significantly edematous and walking is difficult due to joint pain. Fever has not recurred. He is not sure exactly what labs were done, he thinks inflammatory markers were abnormal but he isn't really sure. He has an appointment scheduled with rheumatology on , but says he just could not wait that long because the pain has gotten unbearable. He feels most comfortable when he is laying down and not putting any weight on his joints. <Jessica Julien MD - Last Filed: 03/18/25 11:29> Related Data Home medications: Home Medications ?Medication ?Instructions ?Recorded ?Confirmed albuterol sulfate 90 mcg/actuation inhalation 05/15/22 aerosol inhaler fluticasone fur. 100 mcg-umeclid inhalation 05/15/22 62.5 mcg-vilant 25 mcg inhalat.powder (Trelegy Ellipta) lisinopril 20 tab 05/15/22 mg-hydrochlorothiazide 25 mg tablet loperamide 2 mg capsule mg 05/15/22 terazosin 5 mg capsule mg 05/15/22 warfarin 7.5 mg tablet mg 05/15/22 zolpidem 12.5 mg tablet,extended mg PO 05/15/22 release,multiphase Previous Rx's ?Medication ?Instructions ?Recorded oxycodone 5 mg tablet 5 mg PO Q6H PRN pain #10 tab s 03/14/25 <Jessica Julien MD - Last Filed: 03/18/25 11:29> Allergies/adverse reactions: Allergies Allergy/AdvReac Type Severity Reaction Status Date / Time amoxicillin (From Augmentin) Allergy Mild Nausea Verified 05/15/22 21:41 clavulanic acid (From Allergy Mild Nausea Verified 05/15/22 21:41 Augmentin) <Jessica Julien MD - Last Filed: 03/18/25 11:29> Review of Systems Status of ROS: Reports: 10 or more systems reviewed and unremarkable except as noted in History and below <Jessica Julien MD - Last Filed: 03/18/25 11:29> [facility] Social History: Social History Smoking Status: Never smoker Do you use any of these nicotine containing products: None Second hand tobacco smoke exposure: No How often do you have a drink containing alcohol: 4 or more times a week How many standard drinks containing alcohol do you have on a typical day: 5 or 6 How often do you have six or more drinks on one occasion: Weekly AUDIT-C Alcohol total score: 9 Non-prescribed substance use: denies use <Jessica Julien MD - Last Filed: 03/18/25 11:29> Exam Narrative: Exam Narrative: Vital signs reviewed In general, alert, nontoxic man. He looks and younger than his stated age, moves stiffly. Head: Normocephalic, atraumatic. Eyes: Sclera clear. Pupils equal and reactive. ENT: Mucous membranes moist. No intraoral lesions, throat normal. Neck: Significantly limited range of motion of his neck secondary to pain and stiffness; this includes rotation as well as flexion extension. Heart: Regular rate and rhythm without murmur. Lungs: Clear. No increased work of breathing, crackles or wheezes. Abdomen: Soft, nontender to palpation. Extremities: Significant pitting edema in bilateral lower extremities, no erythema. He has edema in his hands as well, right greater than left. This is more in the dorsum of the hand, the digits are less edematous and I do not see any significant joint inflammation such as erythema or warmth. He has limited abduction in both shoulder joints to about 75-80?. Severe pain with trying to range any further than that. Neurologic: Alert, conversant. Speech fluent, face symmetric. Moves all extremities equally. Skin: Warm, dry well perfused. Affect: Normal. <Jessica Julien MD - Last Filed: 03/18/25 11:29> Const: Vital Signs, click to edit/add: Vital Signs - 24 hr 03/14/25 13:48 03/14/25 16:33 Temperature 98.5 F Pulse Rate 82 Pulse Rate [Pulse Oximeter] 90 Respiratory Rate 18 18 Blood Pressure 132/89 Blood Pressure [Ri ght Upper Arm] 143/80 H Pulse Oximetry 95 97 Oxygen Delivery Me thod Room Air Room Air <Jessica Julien MD - Last Filed: 03/18/25 11:29> Vital Signs, click to edit/add: Vital Signs - 24 hr 03/14/25 13:48 03/14/25 16:33 Temperature 98.5 F Pulse Rate 82 Pulse Rate [Pulse Oximeter] 90 Respiratory Rate 18 18 Blood Pressure 132/89 Blood Pressure [Ri ght Upper Arm] 143/80 H Pulse Oximetry 95 97 Oxygen Delivery Me thod Room Air Room Air <Liz Kidd MD - Last Filed: 03/14/25 22:24> Course Course ED Course: I checked routine labs including inflammatory markers. Not surprisingly, inflammatory markers are elevated with a sed rate of 77 and a CRP of 13. Review of prior records shows that his sed rate couple of months ago when checked by primary care was 41. I added on a CK and this is still pending. He does take Lipitor, I think it is unlikely that this represents a myositis but would like to rule that out. I also rosangela a Lyme titer given that he reports this febrile illness at the start of this. Overall, symptoms are most likely to be some type of inflammatory arthritis, I think follow-up with rheumatology is a very appropriate next step. Discussed with him that I probably will not be able to give him a specific diagnosis today, and while I think he will probably benefit from steroids I do not think it is a good idea to start him on those given that he is seeing Rheumatology in a couple of days and that might affect his labs. In the meantime, I suggested that we have been take Tylenol and then will give him some oxycodone just to help with pain management. I have signed this out to my partner at the end of shift to follow up on the CK, final discharge at that time. Rheumatology follow-up on as planned. <Jessica Julien MD - Last Filed: 03/18/25 11:29> Reevaluation(s) Time of Reevaluation #1: 17:57 <Liz Kidd MD - Last Filed: 03/14/25 22:24> Reevaluation #1: There has been some issue with lab, was unclear if he needed further blood work. We attempted to call lab few times, they are extremely busy due to their current volume. It did end up that they are running the CK, they do have enough blood to do the send out for the tick panel and Lyme. Dr. Julien had stated patient was going to get oxycodone sent in, this was not done. I unfortunately had some issue with [employer] and not being able to transmit narcotics at this point, completely unclear to me why this is happening. We will give him some oxycodone from [facility], will give him 12 tablets as he obviously has some form of inflammatory arthritis that is likely rheumatologic. Agree with Dr. Julien that patient should not be started on prednisone, he has a rheumatology appointment on and this could confound things. He is requesting discharge, he understands that if his CK were to come back elevated that we would likely recommend further evaluation treatment, potentially in the [facility] where he could have a rheumatology consult. Doubt that he has a myositis from his cholesterol medicine but do agree with ruling this out. The Lyme and tick panel will be sent out and will not come back right away. He is requesting discharge, I think it is reasonable and I can call him if there is a concern with his total CK. Note patient CK came back low, he was getting his medication from [facility] and was still here. Nursing staff notified him of the result. <Liz Mejia MD - Last Filed: 03/14/25 22:24> Vital Signs Vital signs: Initial Vital Signs Temperature 98.5 F 03/14/25 13:48 Temperature Source Temporal Artery Scan 03/14/25 13:48 Pulse Rate 90 03/14/25 13:48 Respiratory Rate 18 03/14/25 13:48 Blood Pressure 143/80 H 03/14/25 13:48 Blood Pressure Mean 101 03/14/25 13:48 Pulse Oximetry 95 03/14/25 13:48 Oxygen Delivery Method Room Air 03/14/25 13:48 Vital Signs Temperature 98.5 F 03/14/25 13:48 Pulse Rate 90 03/14/25 13:48 Respiratory Rate 18 03/14/25 13:48 Blood Pressure 143/80 H 03/14/25 13:48 Pulse Oximetry 95 03/14/25 13:48 Oxygen Delivery Method Room Air 03/14/25 13:48 Temperature 98.5 F 03/14/25 13:48 Pulse Rate 82 03/14/25 16:33 Respiratory Rate 18 03/14/25 16:33 Blood Pressure 132/89 03/14/25 16:33 Pulse Oximetry 97 03/14/25 16:33 Oxygen Delivery Method Room Air 03/14/25 16:33 <Jessica Julien MD - Last Filed: 03/18/25 11:29> Initial Vital Signs Temperature 98.5 F 03/14/25 13:48 Temperature Source Temporal Artery Scan 03/14/25 13:48 Pulse Rate 90 03/14/25 13:48 Respiratory Rate 18 03/14/25 13:48 Blood Pressure 143/80 H 03/14/25 13:48 Blood Pressure Mean 101 03/14/25 13:48 Pulse Oximetry 95 03/14/25 13:48 Oxygen Delivery Method Room Air 03/14/25 13:48 Vital Signs Temperature 98.5 F 03/14/25 13:48 Pulse Rate 90 03/14/25 13:48 Respiratory Rate 18 03/14/25 13:48 Blood Pressure 143/80 H 03/14/25 13:48 Pulse Oximetry 95 03/14/25 13:48 Oxygen Delivery Method Room Air 03/14/25 13:48 Temperature 98.5 F 03/14/25 13:48 Pulse Rate 82 03/14/25 16:33 Respiratory Rate 18 03/14/25 16:33 Blood Pressure 132/89 03/14/25 16:33 Pulse Oximetry 97 03/14/25 16:33 Oxygen Delivery Method Room Air 03/14/25 16:33 <Liz Kidd MD - Last Filed: 03/14/25 22:24> Medical Decision Making Lab Data Labs: Lab Results 03/14/25 Range/Units 15:32 WBC 7.02 (4.50-11.00) K/uL RBC 4.08 L (4.30-5.90) m/uL Hgb 12.6 L (13.5-17.5) gm/dL Hct 38.3 (37.0-53.0) % MCV 94 (80-100) fL MCH 31 (26-34) pg MCHC 33 (32-36) gm/dL RDW Coeff of Harry 13.4 (11.5-15.5) % Plt Count 201 (140-440) K/uL Neut % (Auto) 76.4 H (42.0-72.0) % Lymph % (Auto) 14.7 L (20-44) % [place] % (Auto) 7.5 (0.0-11.0) % Eos % (Auto) 0.7 (0.0-7.0) % Baso % (Auto) 0.4 (0.0-3.0) % Neut # (Auto) 5.40 (1.7-7.0) K/uL Lymph # (Auto) 1.00 (0.90-2.90) K/uL [place] # (Auto) 0.50 (0.00-0.90) K/UL Eos # (Auto) 0.05 (0.00-0.50) K/uL Baso # (Auto) 0.03 (0.00-0.30) K/uL Abs Immat Gran (auto) 0.02 (0.00-0.30) K/uL Imm/Tot Granulo (auto) 0.3 % ESR 77 H (2-15) mm/hr INR 2.63 H (0.91-1.10) Sodium 137 (135-149) mmol/L Potassium 4.0 (3.6-5.1) mmol/L Chloride 98 (96-114) mmol/L Carbon Dioxide 31 (20-32) mmol/L Anion Gap 8 (7-15) mEq/L BUN 14 (7-30) mg/dL Creatinine 0.9 (0.5-1.5) mg/dL Estimated Creat Clear 78.68 Estimated GFR 94 ml/min Glucose 123 H (60-115) mg/dL Calcium 9.6 (8.4-10.6) mg/dL Magnesium 1.8 (1.5-2.6) mg/dL Total Bilirubin 1.0 (0.1-1.5) mg/dL AST 31 (12-35) U/L ALT 25 (4-50) U/L Alkaline Phosphatase 91 (40-150) U/L Total Creatine Kinase 36 L (54-186) U/L C-Reactive Protein 11.6 H (0.5-1.0) mg/dL NT-Pro-B Natriuret Pep 81 (See Note) pg/mL Total Protein 8.0 (6.0-8.3) g/dL Albumin 4.1 (3.3-5.0) g/dL A. phagocytophilum DNA Not Detected Babesia Species (PCR) Not Detected Lyme Disease Antibody 0.23 (<=0.90) IV E.ewingii/canis DNA PCR Not Detected E. muris-like DNA (PCR) Not Detected Babesia microti (PCR) Not Detected E. chaffeensis (PCR) Not Detected <Jessica Julien MD - Last Filed: 03/18/25 11:29> Lab Results 03/14/25 Range/Units 15:32 WBC 7.02 (4.50-11.00) K/uL RBC 4.08 L (4.30-5.90) m/uL Hgb 12.6 L (13.5-17.5) gm/dL Hct 38.3 (37.0-53.0) % MCV 94 (80-100) fL MCH 31 (26-34) pg MCHC 33 (32-36) gm/dL RDW Coeff of Harry 13.4 (11.5-15.5) % Plt Count 201 (140-440) K/uL Neut % (Auto) 76.4 H (42.0-72.0) % Lymph % (Auto) 14.7 L (20-44) % [place] % (Auto) 7.5 (0.0-11.0) % Eos % (Auto) 0.7 (0.0-7.0) % Baso % (Auto) 0.4 (0.0-3.0) % Neut # (Auto) 5.40 (1.7-7.0) K/uL Lymph # (Auto) 1.00 (0.90-2.90) K/uL [place] # (Auto) 0.50 (0.00-0.90) K/UL Eos # (Auto) 0.05 (0.00-0.50) K/uL Baso # (Auto) 0.03 (0.00-0.30) K/uL Abs Immat Gran (auto) 0.02 (0.00-0.30) K/uL Imm/Tot Granulo (auto) 0.3 % ESR 77 H (2-15) mm/hr INR 2.63 H (0.91-1.10) Sodium 137 (135-149) mmol/L Potassium 4.0 (3.6-5.1) mmol/L Chloride 98 (96-114) mmol/L Carbon Dioxide 31 (20-32) mmol/L Anion Gap 8 (7-15) mEq/L BUN 14 (7-30) mg/dL Creatinine 0.9 (0.5-1.5) mg/dL Estimated Creat Clear 78.68 Estimated GFR 94 ml/min Glucose 123 H (60-115) mg/dL Calcium 9.6 (8.4-10.6) mg/dL Magnesium 1.8 (1.5-2.6) mg/dL Total Bilirubin 1.0 (0.1-1.5) mg/dL AST 31 (12-35) U/L ALT 25 (4-50) U/L Alkaline Phosphatase 91 (40-150) U/L Total Creatine Kinase 36 L (54-186) U/L C-Reactive Protein 11.6 H (0.5-1.0) mg/dL NT-Pro-B Natriuret Pep 81 (See Note) pg/mL Total Protein 8.0 (6.0-8.3) g/dL Albumin 4.1 (3.3-5.0) g/dL A. phagocytophilum DNA Not Detected Babesia Species (PCR) Not Detected Lyme Disease Antibody 0.23 (<=0.90) IV E.ewingii/canis DNA PCR Not Detected E. muris-like DNA (PCR) Not Detected Babesia microti (PCR) Not Detected E. chaffeensis (PCR) Not Detected <Liz Kidd MD - Last Filed: 03/14/25 22:24> Discharge Plan Discharge Clinical Impression: Myalgia, multiple sites, Edema <Jessica Julien MD - Last Filed: 03/18/25 11:29> Patient Disposition: Home, Self-Care <Jessica Julien MD - Last Filed: 03/18/25 11:29> Condition: Stable <Jessica Julien MD - Last Filed: 03/18/25 11:29> Instructions: Musculoskeletal Pain (ED) <Jessica Julien MD - Last Filed: 03/18/25 11:29> Additional Instructions: Lab test today showed inflammatory elevations, with a CRP of 11.6. Diagnostically, this is very nonspecific. I think rheumatology clinic is a very good next step for you, in the meantime, I think it is okay for you to use ibuprofen couple of times a day if needed, and to use oxycodone if needed to help control severe pain. As we discussed, prednisone may be a good option, but I do not want to start that until after you see the field evidence technician. Lyme testing as a send out, this will come back in 2-3 days and we will contact you if anything needs to be addressed. <Jessica Julien MD - Last Filed: 03/18/25 11:29> Prescriptions: New oxycodone 5 mg tablet 5 mg PO Q6H PRN (Reason: pain) Qty: 10 0RF No Action terazosin 5 mg capsule Patient Comments: TAKE 1 CAPSULE (5 MG) BY MOUTH AT BEDTIME loperamide 2 mg capsule Patient Comments: TAKE 3-4 CAPSULES (6-8 MG) BY MOUTH 3 TIMES DAILY NEEDED FOR DIARRHEA warfarin 7.5 mg tablet Patient Comments: TAKE 1 TAB 6 TIMES A WEEK DIRECTED lisinopril-hydrochlorothiazide 20-25 mg tablet Patient Comments: TAKE 1 TABLET BY MOUTH EVERY DAY albuterol sulfate 90 mcg/actuation HFA aerosol inhaler INHALATION Patient Comments: INHALE 2 PUFFS BY MOUTH EVERY 6 HOURS NEEDED FOR WHEEZE OR FOR SHORTNESS OF BREATH zolpidem 12.5 mg tablet,ext release multiphase PO Patient Comments: TAKE 1 TABLET BY MOUTH AT BEDTIME NEEDED FOR SLEEP Trelegy Ellipta 100-62.5-25 mcg blister with device INHALATION Patient Comments: INHALE 1 PUFF BY MOUTH EVERY DAY <Jessica Julien MD - Last Filed: 03/18/25 11:29> Follow Up/Referrals: Provider,Not a Local [Primary Care Provider, Family Practice] <Jessica Julien MD - Last Filed: 03/18/25 11:29> Stand Alone Forms: MyHealth Info Instructions <Jessica Julien MD - Last Filed: 03/18/25 11:29>
[2025-03-14 16:10] LABS: Albumin* 4.1 g/dL (3.3-5.0); Chloride* 98 mmol/L (96-114); Potassium* 4.0 mmol/L (3.6-5.1); Sodium* 137 mmol/L (135-149)
[2025-03-14 16:12] LABS: Blood Urea Nitrogen* 14 mg/dL (7-30); Creatinine* 0.9 mg/dL (0.5-1.5); Est. Creatinine Clearance* 78.68; Estimated Glomerular Filt Rate 94 ml/min; INR 2.63 (0.91-1.10); Prothrombin Time 29.3 Seconds
[2025-03-14 16:13] LABS: Alanine Aminotransferase* 25 U/L (4-50); Alkaline Phosphatase* 91 U/L (40-150); Anion Gap 8 mEq/L (7-15); Aspartate Amino Transferase* 31 U/L (12-35); Bilirubin Total* 1.0 mg/dL (0.1-1.5); Calcium* 9.6 mg/dL (8.4-10.6); Carbon Dioxide* 31 mmol/L (20-32); Glucose* 123 mg/dL (60-115); Total Protein* 8.0 g/dL (6.0-8.3)
[2025-03-14 16:22] LABS: NT Pro B Type NatriureticPept* 81 pg/mL (See Note)
[2025-03-14 16:33] VITALS: BP 132/89; PULSE 82; RESP 18; O2SAT 97
[2025-03-14 16:54] LABS: Hematocrit* 38.3 % (37.0-53.0); Hemoglobin* 12.6 gm/dL (13.5-17.5); Immature Granulocytes Abs Auto 0.02 K/uL (0.00-0.30); Immature Granulocytes Pct Auto 0.3 %; Mean Corpuscular HGB Conc 33 gm/dL (32-36); Mean Corpuscular Hemoglobin 31 pg (26-34); Mean Corpuscular Volume 94 fL (80-100); RDW Coefficient of Variation % 13.4 % (11.5-15.5); Red Blood Count* 4.08 m/uL (4.30-5.90); White Blood Count* 7.02 K/uL (4.50-11.00)
[2025-03-14 17:01] LABS: Lymphocytes Absolute Auto 1.00 K/uL (0.90-2.90); Slide Review Reflex No
[2025-03-14 17:15] LABS: Erythrocyte SedimentationRate* 77 mm/hr (2-15)
[2025-03-14 17:58] LABS: Creatine Kinase* 36 U/L (54-186)
[2025-03-16 15:02] LABS: Lyme ELISA Reflex 0.23 IV (<=0.90)
[2025-03-17 06:46] LABS: Anaplasma phagocyt PCR Not Detected
== END 2025-03-14 18:12 | disposition home or self-care (01) ==
PROVIDERS: Emergency Provider Emergency Medicine
DX: R60.0 Localized edema (principal); M79.10 Myalgia, unspecified site
CPT/HCPCS: 36415; 80053; 82550; 83735; 83880; 85025; 85610; 85651; 86140; 86618; 87468; 87469; 87484; 87798; 99284